=== PATIENT | male | born 1955 | race Caucasian/White ===

== ENCOUNTER 2017-06-21 07:29 | Emergency (ER) | payer OTHER ==
[2017-06-21] MEDS ORDERED: ONDANSETRON 4 MG/2 ML VIAL ONE (07:51)
[2017-06-21] MEDS ORDERED: KETOROLAC 30 MG/ML INJ ONE (07:51)
[2017-06-21] MEDS ORDERED: FENTANYL CITR 100 MCG/2 ML ONE (07:51)
[2017-06-21 08:11] LABS: Absolute Lymphocytes (CBC) 1.5 K/uL (0.7-4.9); Absolute Monocytes 0.7 K/uL (0.1-1.3); Absolute Neutrophil 6.4 K/uL (1.8-8.0); Basophils % 0.7 % (0-1.3); Eosinophils % 1.8 % (0-4.4); Lymphocytes % 16.7 % (15.3-44.8); MCH 28.4 pg (27.0-35.0); MCV 89.2 fL (80-100); MPV 8.9 fL (7.6-11.3); Monocytes % 7.5 % (3.3-12.3); RBC Red Blood Cell Count 4.15 M/uL (4.33-5.43)
[2017-06-21 08:13] LABS: Urine Bacteria <20 /HPF (NONE SEEN); Urine Culture Reflex Order NOT NEEDED
[2017-06-21 08:19] LABS: Albumin 2.9 g/dL (3.2-5.5); Bilirubin Total 0.5 mg/dL (0.3-1.2); Protein, Total 7.3 g/dL (6.0-8.3)
--- NOTE | 2017-06-21 08:45 | RAD REPORT ---
EXAM DESCRIPTION: CT - Chest Abd Pelvis Wo Con - 06/21/2017 8:23 am CLINICAL HISTORY: Chest and abdomen pain. COMPARISON: 05/05/2017, 04/19/2017, 04/15/[address] scans are performed using dose optimization technique as appropriate and may includ e automated exposure control or mA/KV adjustment according to patient size. 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 Multiple hepatic hypodensities are present compatible with benign cysts. The spleen, pancreas and adr enal glands are within normal limits. Multiple renal cysts are present compatible with polycystic kid cristina disease. No bowel obstruction, free air, free fluid or abscess. No pathologic lymphadenopathy in the abdomen o r pelvis. Aortic endograft is in place. The appendix is normal. Sigmoid diverticulosis coli is presen t without diverticulitis. No worrisome osseous finding. IMPRESSION: No acute abnormality is detected.
--- NOTE | 2017-06-21 08:47 | ER ---
Nurse's Notes [facility] Name: Stan Jimenes Age: 62 yrs Sex: Male : 1955 Arrival Date: 06/21/2017 Time: 07:30 Bed 5 Private MD: out of town, doctor Diagnosis: Fall due to bumping against object;Contusion of abdominal wall;Contusion of front wall of thorax;Contusion of left back wall of thorax;Unspecified kidney failure-poly cystic kidney disease Presentation: 06/21 07:40 Presenting complaint: Patient states: Pt reports while getting back into bed this morning, he slipped and fell, hitting his L flank on the night stand. small abrasion noted to L flank. is concerned because patient has had multiple kidney surgeries. Transition of care: patient was not received from another setting of care. Onset of symptoms was June 21, 2017. Initial Sepsis Screen: Does the patient meet any 2 criteria? No. Patient's initial sepsis screen is negative. Does the patient have a suspected source of infection? No. Patient's initial sepsis screen is negative. Care prior to arrival: None. 07:40 Method Of Arrival: Ambulatory ss 07:40 Acuity: CHAVA 3 ss Historical: - Allergies: 07:44 No Known Allergies; ss - PMHx: 07:44 Aneurysm; COPD; Diabetes - NIDDM; High Cholesterol; Hypertension; POLYCYSTIC KIDNEY ss DISEASE; - Immunization history:: Adult Immunizations. - Social history:: Smoking status: Patient/guardian denies using tobacco. Screenin:50 Abuse screen: Denies threats or abuse. Denies injuries from another. Nutritional sv screening: No deficits noted. Tuberculosis screening: No symptoms or risk factors identified. Fall Risk None identified. Assessment: 07:50 General: Appears uncomfortable, obese, well developed, Behavior is cooperative. Pain: sv Complains of pain in left low back and left mid back and posterior aspect of left lateral abdomen Pain does not radiate. Pain currently is 5 out of 10 on a pain scale. Pain began 1 hour ago. Is intermittent, Alleviated by rest. Neuro: Level of Consciousness is awake, alert, obeys commands, Oriented to person, place, time, situation, Moves all extremities. Gait is steady. Cardiovascular: Patient's skin is warm and dry. Respiratory: Respiratory effort is even, unlabored, Respiratory pattern is regular, symmetrical. Derm: Skin is pink, warm \T\ dry. Musculoskeletal: Range of motion: intact in all extremities. Injury Description: Abrasion sustained to left mid back is scabbed, was sustained 30-60 minutes ago. 08:26 Reassessment: Patient appears in no apparent distress at this time. Patient and/or sv family updated on plan of care and expected duration. Pain level reassessed. Patient is alert, oriented x 3, equal unlabored respirations, skin warm/dry/pink. 09:00 Reassessment: Rosalinda WOODRUFF at bedside teaching IS. 09:14 Reassessment: Patient appears in no apparent distress at this time. No changes from previously documented assessment. Patient and/or family updated on plan of care and expected duration. Pain level reassessed. Patient is alert, oriented x 3, equal unlabored respirations, skin warm/dry/pink. Vital Signs: 07:41 BP 177 / 72; Pulse 81; Resp 20; Pulse Ox 100% ; sv 07:43 Temp 97.8(TE); Weight 95.25 kg; Height 6 ft. 2 in. (187.96 cm); Pain 5/10; ss 07:45 BP 145 / 87; Pulse 61; Resp 18; Pulse Ox 92% on R/A; sv 08:47 BP 146 / 82; Pulse 62; Resp 18; Pulse Ox 97% ; sv 07:43 Body Mass Index 26.96 (95.25 kg, 187.96 cm) ss 07:45 Pt placed on O2 \T\ 2L per NC. O2 sat up to 95%. sv ED Course: 07:30 Patient arrived in ED. as 07:30 out of town, doctor is Private Physician. as 07:35 Jimmie Hloland MD is Attending Physician. mendez 07:35 Naima Manning, MONA is Primary Nurse. sv 07:42 Triage completed. ss 07:43 ED physician to see patient. sv 07:43 Arm band placed on right wrist. ss 07:50 Patient has correct armband on for positive identification. Bed in low position. Call sv light in reach. Side rails up X2. Adult w/ patient. Pulse ox on. NIBP on. Door closed. Warm blanket given. Head of bed elevated. 07:50 Initial lab(s) drawn, by ED staff, sent to lab. Inserted saline lock: 20 gauge in right sv antecubital area, using aseptic technique. Blood collected. IV inserted by Maria Esther [employer] student under the supervision of EQUIPMENT TECH. 08:16 CT completed. Patient moved to CT via stretcher. Patient moved back from CT. cw1 08:17 X-ray completed. Portable x-ray completed in exam room. Patient tolerated procedure kp1 well. 08:18 Chest Single View XRAY In Process Unspecified. EDMS 08:23 CT Chest Abdomen Pelvis W/O Contrast In Process Unspecified. EDMS 08:26 Patient moved back from radiology. sv 08:47 Awaiting radiology results. sv 09:12 INCENTIVE SPIROMETRY Sent. sv 09:14 No provider procedures requiring assistance completed. IV discontinued, intact, sv bleeding controlled, No redness/swelling at site. Pressure dressing applied. Administered Medications: 07:53 Drug: Zofran 4 mg Route: IVP; Site: right antecubital; sv 08:48 Follow up: Response: No adverse reaction sv 07:55 Drug: TORadol 30 mg Route: IVP; Site: right antecubital; sv 08:48 Follow up: Response: No adverse reaction sv 07:57 Drug: fentaNYL (PF) 50 mcg Route: IVP; Site: right antecubital; sv 08:48 Follow up: Response: No adverse reaction sv Outcome: 08:47 Discharge ordered by . mendez 09:14 Patient left the ED. sv 09:14 Discharged to home ambulatory, with family. sv 09:14 Condition: stable 09:14 Discharge instructions given to patient, Instructed on discharge instructions, follow up and referral plans. no drinking with medication, no driving heavy equipment, medication usage, IS teaching Demonstrated understanding of instructions, follow-up care, medications, Prescriptions given X 2. Signatures: Dispatcher [employer] EDMS Naima Manning RN RN sv Gay, Steven, RN RN sg Anderson, Corey, MD MD cha Martinez, Amelia as Smirch, Shelby, RN RN ss Woodley, Crystal cw1 Lizeth Markham kp1 Corrections: (The following items were deleted from the chart) 08:12 07:56 Inserted saline lock: 20 gauge in right antecubital area, using aseptic sv technique. Blood collected. IV inserted by Maria Esther [employer] student under the supervision of EQUIPMENT TECH august 08:12 07:56 Initial lab(s) drawn, by ED staff, sent to lab. sg sv
--- NOTE | 2017-06-21 08:48 | EDPHYS ---
Physician Documentation [facility] Name: Stan Jimenes Age: 62 yrs Sex: Male : 1955 Arrival Date: 06/21/2017 Time: 07:30 Bed 5 Private MD: out of town, doctor ED Physician Jimmie Holland HPI: 06/21 07:45 This 62 yrs old Male presents to ER via Ambulatory with complaints of Fall mendez Injury, Flank Pain. 07:45 Details of fall: The patient fell from an upright position, while walking. Onset: The mendez symptoms/episode began/occurred just prior to arrival. Associated injuries: The patient sustained injury to the chest, injury to the abdomen, contusion, tenderness. Severity of symptoms: At their worst the symptoms were moderate, in the emergency department the symptoms are unchanged. The patient has not experienced similar symptoms in the past. Historical: - Allergies: 07:44 No Known Allergies; ss - PMHx: 07:44 Aneurysm; COPD; Diabetes - NIDDM; High Cholesterol; Hypertension; POLYCYSTIC KIDNEY ss DISEASE; - Immunization history:: Adult Immunizations. - Social history:: Smoking status: Patient/guardian denies using tobacco. ROS: 07:46 Constitutional: Negative for fever, chills, and weight loss, Eyes: Negative for injury, mendez pain, redness, and discharge, ENT: Negative for injury, pain, and discharge, Neck: Negative for injury, pain, and swelling, Cardiovascular: Negative for chest pain, palpitations, and edema, Back: Negative for injury and pain, : Negative for injury, bleeding, discharge, and swelling, MS/Extremity: Negative for injury and deformity, Skin: Negative for injury, rash, and discoloration, Neuro: Negative for headache, weakness, numbness, tingling, and seizure, Psych: Negative for depression, anxiety, suicide ideation, homicidal ideation, and hallucinations, Allergy/Immunology: Negative for hives, rash, and allergies, Endocrine: Negative for neck swelling, polydipsia, polyuria, polyphagia, and marked weight changes, Hematologic/Lymphatic: Negative for swollen nodes, abnormal bleeding, and unusual bruising. 07:46 Respiratory: Positive for shortness of breath, at rest. 07:46 Abdomen/GI: Positive for abdominal pain, of the anterior aspect of left lateral abdomen, posterior aspect of left lateral abdomen and left upper quadrant. Exam: 07:46 Constitutional: This is a well developed, well nourished patient who is awake, alert, mendez and in no acute distress. Head/Face: Normocephalic, atraumatic. Eyes: Pupils equal round and reactive to light, extra-ocular motions intact. Lids and lashes normal. Conjunctiva and sclera are non-icteric and not injected. Cornea within normal limits. Periorbital areas with no swelling, redness, or edema. ENT: Nares patent. No nasal discharge, no septal abnormalities noted. Tympanic membranes are normal and external auditory canals are clear. Oropharynx with no redness, swelling, or masses, exudates, or evidence of obstruction, uvula midline. Mucous membranes moist. Neck: Trachea midline, no thyromegaly or masses palpated, and no cervical lymphadenopathy. Supple, full range of motion without nuchal rigidity, or vertebral point tenderness. No Meningismus. Chest/axilla: Normal chest wall appearance and motion. Nontender with no deformity. No lesions are appreciated. Cardiovascular: Regular rate and rhythm with a normal S1 and S2. No gallops, murmurs, or rubs. Normal PMI, no JVD. No pulse deficits. Respiratory: Lungs have equal breath sounds bilaterally, clear to auscultation and percussion. No rales, rhonchi or wheezes noted. No increased work of breathing, no retractions or nasal flaring. Back: No spinal tenderness. No costovertebral tenderness. Full range of motion. Male : Normal genitalia with no discharge or lesions. Skin: Warm, dry with normal turgor. Normal color with no rashes, no lesions, and no evidence of cellulitis. MS/ Extremity: Pulses equal, no cyanosis. Neurovascular intact. Full, normal range of motion. Neuro: Awake and alert, GCS 15, oriented to person, place, time, and situation. Cranial nerves II-XII grossly intact. Motor strength 5/5 in all extremities. Sensory grossly intact. Cerebellar exam normal. Normal gait. Psych: Awake, alert, with orientation to person, place and time. Behavior, mood, and affect are within normal limits. 07:46 Abdomen/GI: Inspection: distension, Bowel sounds: normal, Palpation: mild abdominal tenderness, moderate abdominal tenderness, in the anterior aspect of left lateral abdomen, posterior aspect of left lateral abdomen and left upper quadrant, Liver: no appreciated palpable abnormalities, Hernia: not appreciated. Vital Signs: 07:41 BP 177 / 72; Pulse 81; Resp 20; Pulse Ox 100% ; sv 07:43 Temp 97.8(TE); Weight 95.25 kg; Height 6 ft. 2 in. (187.96 cm); Pain 5/10; ss 07:45 BP 145 / 87; Pulse 61; Resp 18; Pulse Ox 92% on R/A; sv 08:47 BP 146 / 82; Pulse 62; Resp 18; Pulse Ox 97% ; sv 07:43 Body Mass Index 26.96 (95.25 kg, 187.96 cm) ss 07:45 Pt placed on O2 \T\ 2L per NC. O2 sat up to 95%. sv MDM: 07:35 Patient medically screened. [facility] 07:47 Data reviewed: vital signs, nurses notes, lab test result(s), radiologic studies, CT mendez scan, plain films. 06/21 07:44 Order name: CBC with Diff; Complete Time: 08:13 [facility] 06/21 07:44 Order name: Comprehensive Metabolic Panel; Complete Time: 08:46 [facility] 06/21 07:44 Order name: Lipase; Complete Time: 08:46 [facility] 06/21 07:44 Order name: Chest Single View XRAY [facility] 06/21 07:44 Order name: Urine Microscopic Only; Complete Time: 08:13 [facility] 06/21 07:44 Order name: Urine Dipstick-Ancillary (obtain specimen); Complete Time: 07:57 [facility] 06/21 08:01 Order name: CT Chest Abdomen Pelvis W/O Contrast; Complete Time: 08:46 [facility] 06/21 08:02 Order name: INCENTIVE SPIROMETRY [facility] Administered Medications: 07:53 Drug: Zofran 4 mg Route: IVP; Site: right antecubital; sv 08:48 Follow up: Response: No adverse reaction sv 07:55 Drug: TORadol 30 mg Route: IVP; Site: right antecubital; sv 08:48 Follow up: Response: No adverse reaction sv 07:57 Drug: fentaNYL (PF) 50 mcg Route: IVP; Site: right antecubital; sv 08:48 Follow up: Response: No adverse reaction sv Disposition: 06/21/17 08:47 Discharged to Home. Impression: Fall due to bumping against object, Contusion of abdominal wall, Contusion of front wall of thorax, Contusion of left back wall of thorax, Unspecified kidney failure - poly cystic kidney disease. - Condition is Stable. - Discharge Instructions: Blunt Abdominal Trauma, Contusion, Chest Wall Pain, Chest Contusion, Chest Wall Pain, [id number], Contusion, [id number], Chest Contusion, [id number]. - Prescriptions for Tylenol- Codeine #3 300-30 mg Oral Tablet - take 2 tablet by ORAL route every 6 hours As needed; 30 tablet. Valium 2 mg Oral Tablet - take 1 tablet by ORAL route every 8 hours As needed; 20 tablet. - Medication Reconciliation Form, Thank You Letter, Antibiotic Education, Prescription Opioid Use form. - Follow up: Private Physician; When: 2 - 3 days; Reason: Recheck today's complaints, Continuance of care, Re-evaluation by your physician. - Problem is new. - Symptoms have improved. Signatures: Dispatcher [employer] aNima Montana RN RN sv Anderson, Corey, MD MD cha Smirch, Shelby, RN RN ss Corrections: (The following items were deleted from the chart) 08:04 07:45 Chest Abdomen Pelvis W Con+CT.RAD.BRZ ordered. EDMS EDMS
[2017-06-21 09:19] VITALS: TEMP 97.8
[2017-06-21 09:22] VITALS: BP 146/82; O2SAT 97
--- NOTE | 2017-06-21 11:00 | RAD REPORT ---
EXAM DESCRIPTION: RAD - Chest Single View - 06/21/2017 8:26 am CLINICAL HISTORY: Dyspnea, shortness of breath COMPARISON: 05/05/2017 FINDINGS: Portable technique limits examination quality. The lungs are grossly clear. The heart is normal in size. No displaced fractures. IMPRESSION: No acute intrathoracic process suspected.
[2017-06-22] MEDS ORDERED: MIDAZOLAM HCL 2 MG/2 ML INJ ONE (08:47)
[2017-06-22] MEDS ORDERED: FENTANYL CITR 100 MCG/2 ML ONE (08:47)
== END 2017-06-21 09:14 | disposition home or self-care (01) ==
LOC: ER 07:29
DX: S20.219A Contusion of unspecified front wall of thorax, initial encounter (principal); S20.222A Contusion of left back wall of thorax, initial encounter; N19 Unspecified kidney failure; Q61.3 Polycystic kidney, unspecified; I10 Essential (primary) hypertension; W18.00XA Striking against unspecified object with subsequent fall, initial encounter; Y93.01 Activity, walking, marching and hiking; Y92.9 Unspecified place or not applicable
CPT/HCPCS: 36415; 71045; 71250; 74176; 80053; 81015; 83690; 85025; 96374; 96375; 99284; J2250; J2405; J3010

== ENCOUNTER 2018-02-09 13:48 | Emergency (ER) | payer OTHER ==
--- OUTSIDE RECORDS SUMMARY | 2018-02-09 13:51 | XMS REPORT ---
:1955 [facility] Address [address] [place] [address] Dr. Trevino [address] [place] [id number] Care Team Providers Name Role Phone Unavailable Unavailable Unavailable Problems This patient has no known problems. Allergies, Adverse Reactions, Alerts This patient has no known allergies or adverse reactions. Medications This patient has no known medications.
[2018-02-09] MEDS ORDERED: HYDROCODONE/APAP 7.5/325 MG TAB ONE (15:23)
--- NOTE | 2018-02-09 15:26 | RAD REPORT ---
EXAM DESCRIPTION: CT - Thorax Wo Jason - 02/09/2018 3:05 pm CLINICAL HISTORY: Trip and fall, left-sided chest pain, shortness of breath COMPARISON: CT imaging May 2017 TECHNIQUE: Axial 5 mm thick images of the chest were obtained without IV contrast. All CT scans are performed using dose optimization technique as appropriate and may include automated exposure control or mA/KV adjustment according to patient size. FINDINGS: No pulmonary contusion, pneumothorax or acute lung parenchymal process. There is a trace a mount of fluid in the posterior pleural space. Patient has incomplete fractures of the anterior left seventh and eighth ribs. The more inferior aspects of the ribcage are not imaged. No abnormal mediastinal or hilar masses or lymphadenopathy seen. No gross aortic or pulmonary artery finding suspected. No pericardial thickening or effusion. Clavicle and left shoulder joint are not w ell imaged. No sternum fracture. The 13 millimeter hamartoma posterior lower right lung field has not changed. No chest wall mass or abnormal axillary lymphadenopathy. IMPRESSION: Incomplete fractures of the anterior left seventh and eighth ribs. Patient has a minimal amount of pleural fluid on the left. There is no pneumothorax or pulmonary cont usion.
[2018-02-09 15:36] LABS: Absolute Lymphocytes (CBC) 1.8 K/uL (0.7-4.9); Absolute Monocytes 0.8 K/uL (0.1-1.3); Basophils % 0.8 % (0-1.3); Eosinophils % 2.9 % (0-4.4); Hematocrit 39.3 % (39.6-49.0); Lymphocytes % 20.1 % (15.3-44.8); MCH 29.8 pg (27.0-35.0); MCV 89.7 fL (80-100); MPV 8.4 fL (7.6-11.3); Monocytes % 8.5 % (3.3-12.3); RBC Red Blood Cell Count 4.38 M/uL (4.33-5.43)
[2018-02-09 16:05] LABS: BUN Blood Urea Nitrogen 33 mg/dL (7-18); Bicarbonate 26 mmol/L (21-32); Glucose Level 90 mg/dL (74-106); NT PRO-BNP 828 pg/mL (<125); Potassium 4.2 mmol/L (3.5-5.1); Sodium Level 142 mmol/L (136-145); Troponin (Emerg Dept Use Only) < 0.02 ng/mL (0.0-0.045)
--- NOTE | 2018-02-09 16:33 | EDPHYS ---
Physician Documentation [facility] Name: Stan Jimenes Age: 62 yrs Sex: Male : 1955 Arrival Date: 02/09/2018 Time: 13:52 Bed 26 Private MD: out of town, doctor ED Physician Vernon Jeffery HPI: 02/09 16:25 This 62 yrs old Male presents to ER via Ambulatory with complaints of Chest gs Pain, Shortness Of Breath, High Blood Pressure, Fall Injury. 16:26 The patient or guardian reports chest pain that is located primarily in the anterior gs chest wall, left. Onset: 4 day(s) ago, fell on chest upright position. Associated signs and symptoms: Pertinent positives: shortness of breath. The chest pain is described as sharp. Duration: The patient or guardian reports multiple episodes, that are intermittent, that wax and wane. Modifying factors: the symptoms are aggravated by deep breath, twisting torso. Severity of pain: At its worst the pain was moderate in the emergency department the pain is unchanged. The patient has not experienced similar symptoms in the past. Historical: - Allergies: 14:13 No Known Allergies; ph - Home Meds: 14:13 calcitriol 0.25 mcg Oral cap 1 cap [Active]; allopurinol 100 mg oral tab once daily ph [Active]; aspirin 81 mg Oral TbEC 1 tab once daily [Active]; magnesium oxide 400 mg Oral tab 400 mg daily [Active]; esomeprazole magnesium 40 mg Oral cpDR 1 cap once daily [Active]; Silenor 6 mg oral tab 1 tab once daily [Active]; metoprolol tartrate 25 mg Oral tab 1 tab 2 times per day [Active]; carvedilol 6.25 mg oral tab 1 tab 2 times per day [Active]; amlodipine 10 mg tab 1 tab once daily [Active]; acetaminophen-codeine 300-30 mg Oral tab 2 tabs every 6 hours [Active]; ranitidine HCl 150 mg Oral tab 1 tab once daily [Active]; tramadol 50 mg Oral tab 1 tab every 8 hours [Active]; tamsulosin 0.4 mg oral cp24 1 cap once daily [Active]; - PMHx: 14:13 Aneurysm; COPD; Diabetes - NIDDM; High Cholesterol; Hypertension; POLYCYSTIC KIDNEY ph DISEASE; - PSHx: 14:13 missing rib on L; AAA repair; ph - Immunization history:: Adult Immunizations unknown. - Social history:: Smoking status: Patient/guardian denies using tobacco, the patient reports quitting approximately 10 years ago. - Ebola Screening: : No symptoms or risks identified at this time. ROS: 16:26 All other systems are negative. gs Exam: 16:26 Head/Face: Normocephalic, atraumatic. Eyes: Pupils equal round and reactive to light, gs extra-ocular motions intact. Lids and lashes normal. Conjunctiva and sclera are non-icteric and not injected. Cornea within normal limits. Periorbital areas with no swelling, redness, or edema. ENT: Nares patent. No nasal discharge, no septal abnormalities noted. Tympanic membranes are normal and external auditory canals are clear. Oropharynx with no redness, swelling, or masses, exudates, or evidence of obstruction, uvula midline. Mucous membranes moist. Neck: Trachea midline, no thyromegaly or masses palpated, and no cervical lymphadenopathy. Supple, full range of motion without nuchal rigidity, or vertebral point tenderness. No Meningismus. Respiratory: Lungs have equal breath sounds bilaterally, clear to auscultation and percussion. No rales, rhonchi or wheezes noted. No increased work of breathing, no retractions or nasal flaring. Abdomen/GI: Soft, non-tender, with normal bowel sounds. No distension or tympany. No guarding or rebound. No evidence of tenderness throughout. Back: No spinal tenderness. No costovertebral tenderness. Full range of motion. Skin: Warm, dry with normal turgor. Normal color with no rashes, no lesions, and no evidence of cellulitis. MS/ Extremity: Pulses equal, no cyanosis. Neurovascular intact. Full, normal range of motion. Neuro: Awake and alert, GCS 15, oriented to person, place, time, and situation. Cranial nerves II-XII grossly intact. Motor strength 5/5 in all extremities. Sensory grossly intact. Cerebellar exam normal. Normal gait. 16:26 Constitutional: The patient appears alert, awake. 16:26 Chest/axilla: Palpation: tenderness, that is moderate, of the left lateral anterior chest and left lateral posterior chest. 16:26 Cardiovascular: Rate: normal, Rhythm: regular, Pulses: no pulse deficits are appreciated. 16:26 ECG was reviewed by the Attending Physician. Vital Signs: 14:05 BP 145 / 84; Pulse 64; Resp 22; Temp 97.8; Pulse Ox 100% on R/A; Weight 122.47 kg; ph Height 6 ft. 2 in. (187.96 cm); Pain 5/10; 15:38 BP 151 / 90; Pulse 60; Resp 17; Pulse Ox 98% on R/A; kr2 16:45 BP 136 / 74; Pulse 66; Resp 17; Pulse Ox 99% on R/A; kr2 14:05 Body Mass Index 34.67 (122.47 kg, 187.96 cm) ph MDM: 14:32 Patient medically screened. 16:26 Differential diagnosis: pleurisy, pneumothorax, rib fx. Data reviewed: vital signs, gs nurses notes. Counseling: I had a detailed discussion with the patient and/or guardian regarding: the historical points, exam findings, and any diagnostic results supporting the discharge/admit diagnosis, lab results, radiology results, the need for outpatient follow up. 02/09 14:37 Order name: Basic Metabolic Panel; Complete Time: 16:25 02/09 14:37 Order name: CBC with Diff; Complete Time: 15:44 02/09 14:37 Order name: NT PRO-BNP; Complete Time: 16:25 02/09 14:37 Order name: Troponin (emerg Dept Use Only); Complete Time: 16:25 02/09 14:37 Order name: CT Chest Wo Con; Complete Time: 15:44 02/09 14:37 Order name: EKG; Complete Time: 14:38 02/09 14:37 Order name: Cardiac monitoring; Complete Time: 14:41 02/09 14:37 Order name: EKG - Nurse/Tech; Complete Time: 14:41 02/09 14:37 Order name: IV Saline Lock; Complete Time: 14:41 02/09 14:37 Order name: Labs collected and sent; Complete Time: 14:41 02/09 14:37 Order name: O2 Per Protocol; Complete Time: 14:41 02/09 14:37 Order name: O2 Sat Monitoring; Complete Time: 14:41 gs EC:26 Rate is 60 beats/min. Rhythm is regular. [place] interval is prolonged. QRS interval is gs normal. QT interval is normal. T waves are Normal. No ST changes noted. Clinical impression: Abnormal EKG without significant change. Interpreted by me. Administered Medications: 15:18 Drug: [place] (7.5 mg-325 mg) 1 tabs Route: PO; kr2 16:30 Follow up: Response: No adverse reaction; Pain is decreased kr2 Disposition: 02/09/18 16:33 Discharged to Home. Impression: Multiple fractures of ribs, left side. - Condition is Stable. - Discharge Instructions: Rib Fracture, Incentive Spirometer. - Prescriptions for Tylenol- Codeine #4 300-60 mg Oral Tablet - take 1 tablet by ORAL route every 8 hours As needed; 15 tablet. - Medication Reconciliation Form, Thank You Letter, Antibiotic Education, Prescription Opioid Use form. - Follow up: Emergency Department; When: 2 - 3 days; Reason: Re-evaluation by your physician. Signatures: Dispatcher [employer] EDJaquelin Quintanilla RN RN Vernon Jeffery MD MD India Hagen RN RN kr2 Corrections: (The following items were deleted from the chart) 16:48 16:33 02/09/2018 16:33 Discharged to Home. Impression: Multiple fractures of ribs, left kr2 side. Condition is Stable. Forms are Medication Reconciliation Form, Thank You Letter, Antibiotic Education, Prescription Opioid Use. Follow up: Emergency Department; When: 2 - 3 days; Reason: Re-evaluation by your physician.
--- NOTE | 2018-02-09 16:33 | ER ---
Nurse's Notes [facility] Name: Stan Jimenes Age: 62 yrs Sex: Male : 1955 Arrival Date: 02/09/2018 Time: 13:52 Bed 26 Private MD: out of town, doctor Diagnosis: Multiple fractures of ribs, left side Presentation: 02/09 14:02 Presenting complaint: Child states: " We were visiting someone at the hospital in [facility] and he tripped and fell and landed on his chest. They did xrays and said that nothing is broken but he's been having a lot of pain." Pt reports pain in L side of chest that radiates around rib area, also reports pain w/ respiration, SOB, high BP and productive cough w/ brown mucus, hx of COPD, AAA repair and missing a rib on L side. Injury occurred 02/05. Transition of care: patient was not received from another setting of care. Onset of symptoms was February 09, 2018. Risk Assessment: Do you want to hurt yourself or someone else? Patient reports no desire to harm self or others. Initial Sepsis Screen: Does the patient meet any 2 criteria? No. Patient's initial sepsis screen is negative. Does the patient have a suspected source of infection? No. Patient's initial sepsis screen is negative. Care prior to arrival: None. 14:02 Method Of Arrival: Ambulatory 14:02 Acuity: CHAVA 3 ph Historical: - Allergies: 14:13 No Known Allergies; ph - Home Meds: 14:13 calcitriol 0.25 mcg Oral cap 1 cap [Active]; allopurinol 100 mg oral tab once daily ph [Active]; aspirin 81 mg Oral TbEC 1 tab once daily [Active]; magnesium oxide 400 mg Oral tab 400 mg daily [Active]; esomeprazole magnesium 40 mg Oral cpDR 1 cap once daily [Active]; Silenor 6 mg oral tab 1 tab once daily [Active]; metoprolol tartrate 25 mg Oral tab 1 tab 2 times per day [Active]; carvedilol 6.25 mg oral tab 1 tab 2 times per day [Active]; amlodipine 10 mg tab 1 tab once daily [Active]; acetaminophen-codeine 300-30 mg Oral tab 2 tabs every 6 hours [Active]; ranitidine HCl 150 mg Oral tab 1 tab once daily [Active]; tramadol 50 mg Oral tab 1 tab every 8 hours [Active]; tamsulosin 0.4 mg oral cp24 1 cap once daily [Active]; - PMHx: 14:13 Aneurysm; COPD; Diabetes - NIDDM; High Cholesterol; Hypertension; POLYCYSTIC KIDNEY ph DISEASE; - PSHx: 14:13 missing rib on L; AAA repair; ph - Immunization history:: Adult Immunizations unknown. - Social history:: Smoking status: Patient/guardian denies using tobacco, the patient reports quitting approximately 10 years ago. - Ebola Screening: : No symptoms or risks identified at this time. Screenin:00 Abuse screen: Denies threats or abuse. Denies injuries from another. Nutritional kr2 screening: No deficits noted. Tuberculosis screening: No symptoms or risk factors identified. Fall Risk Fall in past 12 months (25 points). Assessment: 14:11 General: Appears in no apparent distress. comfortable, well groomed, well developed, kr2 well nourished, Behavior is calm, cooperative, appropriate for age. Pain: Complains of pain in chest Pain radiates to anterior aspect of left lateral abdomen and anterior aspect of right lateral abdomen Pain currently is 7 out of 10 on a pain scale. Quality of pain is described as sharp, tender, Pain began gradually, Aggravated by deep breathing and coughing. Neuro: Level of Consciousness is awake, alert, Oriented to person, place, time, situation. Cardiovascular: Capillary refill < 3 seconds in bilateral fingers. Respiratory: Airway is patent Respiratory effort is even, unlabored, Respiratory pattern is regular, symmetrical. GI: Abdomen is flat, round non-distended, Patient currently denies nausea, vomiting. EENT: Nares are clear bilaterally Oral mucosa is moist. Derm: Skin is intact, is healthy with good turgor, Skin is pink, warm \\T\\ dry. Musculoskeletal: Circulation, motion, and sensation intact. 15:37 Reassessment: Patient appears in no apparent distress at this time. Patient and/or kr2 family updated on plan of care and expected duration. Pain level reassessed. Patient is alert, oriented x 3, equal unlabored respirations, skin warm/dry/pink. 16:45 Reassessment: Patient appears in no apparent distress at this time. Patient and/or kr2 family updated on plan of care and expected duration. Pain level reassessed. Patient is alert, oriented x 3, equal unlabored respirations, skin warm/dry/pink. Patient states feeling better. Vital Signs: 14:05 BP 145 / 84; Pulse 64; Resp 22; Temp 97.8; Pulse Ox 100% on R/A; Weight 122.47 kg; ph Height 6 ft. 2 in. (187.96 cm); Pain 5/10; 15:38 BP 151 / 90; Pulse 60; Resp 17; Pulse Ox 98% on R/A; kr2 16:45 BP 136 / 74; Pulse 66; Resp 17; Pulse Ox 99% on R/A; kr2 14:05 Body Mass Index 34.67 (122.47 kg, 187.96 cm) ph ED Course: 13:52 Patient arrived in ED. mr 13:53 out of town, doctor is Private Physician. mr 14:00 Patient maintains SpO2 saturation greater than 95% on room air. kr2 14:00 Patient has correct armband on for positive identification. Bed in low position. Call kr2 light in reach. Side rails up X2. Adult w/ patient. nurse monitoring on. Pulse ox on. NIBP on. Door closed. Warm blanket given. Head of bed elevated. 14:05 Triage completed. ph 14:06 India Hagen, MONA is Primary Nurse. kr2 14:10 EKG done, by medical lab technologist. reviewed by Basil Ya MD. 3 14:14 Arm band placed on Patient placed in an exam room, on a stretcher, in view of staff ph members, on shelter monitor, on pulse oximetry. 14:22 Vernon Jeffery MD is Attending Physician. gs 14:30 Inserted saline lock: 22 gauge in right forearm, using aseptic technique. kr2 15:05 CT Chest Wo Con In Process Unspecified. EDMS 16:46 No provider procedures requiring assistance completed. IV discontinued, intact, kr2 bleeding controlled, No redness/swelling at site. Pressure dressing applied. Administered Medications: 15:18 Drug: [place] (7.5 mg-325 mg) 1 tabs Route: PO; kr2 16:30 Follow up: Response: No adverse reaction; Pain is decreased kr2 Outcome: 16:33 Discharge ordered by . gs 16:47 Discharged to home ambulatory, with family. kr2 16:47 Condition: good 16:47 Discharge instructions given to patient, family, Instructed on discharge instructions, follow up and referral plans. medication usage, Incentive Spirometer use Demonstrated understanding of instructions, follow-up care, medications, Incentive spirometer Prescriptions given X 1. 16:48 Patient left the ED. kr2 Signatures: Dispatcher [employer] EDKY Mazin Megan QiuJaquelin, RN RN ph Latia, MD JOSSELYN Junior India Hagen RN RN kr2 Stacie Horowitz 3
[2018-02-09 17:17] VITALS: TEMP 97.8
[2018-02-09 17:20] VITALS: BP 136/74; O2SAT 99
--- NOTE | 2018-02-09 17:45 | EKG ---
Test Date: 2018-02-09 Test Time: 14:02:12 Blade Groover: JACQUELINE MEASUREMENT RESULTS: Intervals: Rate: 60 OK: QRSD: 90 QT: 422 QTc: 422 [place]: P: OK: QRS: -3 T: 24 INTERPRETIVE STATEMENTS: Sinus rhythm Normal ECG Compared to ECG 05/05/2017 18:03:55 no significant change from previous ECG Electronically Signed On 02-09-18 17:44:54 TANDEM OPERATOR by Shree Parks
== END 2018-02-09 16:48 | disposition home or self-care (01) ==
LOC: ER 13:48
DX: S22.42XA Multiple fractures of ribs, left side, initial encounter for closed fracture (principal); W19.XXXA Unspecified fall, initial encounter; Y93.9 Activity, unspecified; Y92.9 Unspecified place or not applicable; Z79.82 Long term (current) use of aspirin; I10 Essential (primary) hypertension; J44.9 Chronic obstructive pulmonary disease, unspecified; E11.9 Type 2 diabetes mellitus without complications; E78.00 Pure hypercholesterolemia, unspecified
CPT/HCPCS: 36415; 71250; 80048; 83880; 84484; 85025; 93005; 99285

== ENCOUNTER 2018-04-09 18:42 | Emergency (ER) | payer OTHER ==
--- OUTSIDE RECORDS SUMMARY | 2018-04-09 18:45 | XMS REPORT | Continuity of Care Document ---
:1955 Author Organization Interface Problems Problem Status Onset Classification Date Comments Source Date Reported KIDNEY/DO NOT USE Active [facility] F/C [address] [place] [address] NEW EVALUATION Active [address] Z87.891 - PERSONAL Active [facility]ID HISTORY OF 018 [place] NICOTINE D Discharge 11/06/2016 [facility] Diagnosis: 017 Hypomagnesemia Discharge 11/06/2016 [facility] Diagnosis: 017 Generalized weakness Discharge 11/06/2016 [facility] Diagnosis: 017 Hypophosphatemia WEAKNESS Active [facility] 017 [place] Discharge 09/13/2015 [facility] Diagnosis: Sore 016 throat Discharge 09/13/2015 [facility] Diagnosis: Foreign 016 body in soft tissue (Throat) THROAT PAIN Active [facility] 016 [place] Discharge 06/23/2015 [facility] Diagnosis: 016 Weakness Discharge 06/23/2015 [facility] Diagnosis: Chronic 016 back pain Discharge 06/23/2015 [facility] Diagnosis: History 016 of AAA repair Discharge 06/23/2015 [facility] Diagnosis: 016 Articular gout CHEST PAIN Active [facility] 016 [place] 491.20 - OBST CHR [facility] [place] Aneurysm of Resolved Problem 11/06/2016 [facility] abdominal aorta Chronic Active Problem 11/06/2016 Data [facility] obstructive lung migrated disease<sup>1</sup from GE > Centricity on 07/29/14. COPD Resolved Problem 11/06/2016 [facility] [place], [facility] Essential Active Problem 11/06/2016 Data [facility] hypertension<sup>2 migrated </sup> from GE Centricity on 07/29/14. Gastroesophageal Active Problem 11/06/2016 Data [facility] reflux migrated disease<sup>3</sup from GE > Centricity on 07/29/14. Gout<sup>4</sup> Active Problem 11/06/2016 Data [facility] migrated from GE Centricity on 07/29/14. Hypercholesterolem Active Problem 11/06/2016 Data [facility] ia<sup>5</sup> migrated from GE Centricity on 07/29/14. Hyperlipidemia Resolved Problem 11/06/2016 [facility] Hypertension Resolved Problem 11/06/2016 [facility] [place], [facility] Hypogonadism<sup>6 Active Problem 11/06/2016 Data [facility] </sup> migrated from GE Centricity on 07/29/14. Final: Weakness 06/23/2015 [facility] Final: Abdominal 06/23/2015 [facility] aortic aneurysm, without rupture Final: Idiopathic 06/23/2015 [facility] gout, unspecified site Final: 06/23/2015 [facility] Hypertensive chronic kidney disease with stage 1 through stage 4 chronic kidney disease, or unspecified chronic kidney disease Final: Chronic 06/23/2015 [facility] kidney disease, unspecified Medications Medication Details Route Status Patient Ordering Order Source Instructions Provider Date potassium Route: PO, Inactive phosphate-sodi Drug Form: [address] [place] [address] um phosphate PDR/REC, 250 mg-45 Dosing Weight mg-298 mg oral 118.182, kg, tablet ONCE, Start date: 11/03/16 15:02:00 CDT, Stop date: 11/03/16 15:02:00 CDTNotes: (Same as: Phos-NaK) Each 1.5 gm pkt has 250mg phosphorous. Mix w/2.5oz water and stir. potassium Route: PO, Inactive phosphate 155 Drug Form: [address] [place] [address] MG / Sodium TAB, Dosing Phosphate, Weight Dibasic 852 MG 118.182, kg, / Sodium ONCE, Start Phosphate, date: Monobasic 130 11/03/16 MG Oral Tablet 14:54:00 CDT, [K-Phos Stop date: Neutral] 11/03/16 14:54:00 CDTNotes: (Same as: K-Phos Neutral, Phospha 250 Neutral) Magnesium 2 gm, 50 mL, Inactive Sulfate Route: IVPB, Angela [place] Drug form: INJ, ONCE, Dosing Weight 118.182, kg, Start date: 11/03/16 14:52:00 CDT, Duration: 2 hr, Stop date: 11/03/16 14:52:00 CDTNotes: WASTE: F/P - Sink; E - Municipal Trash Bin GI cocktail 30 mL, Route: Inactive PO, Drug 017 [place] Form: SUSP, Dosing Weight 118.182, kg, ONCE, STAT, Start date: 11/03/16 10:34:00 CDT, Stop date: 11/03/16 10:34:00 CDTNotes: G.I. Cocktail=anta [place] with simethicone 22.5 mL - lidocaine viscous 7.5 mL Sodium 1,000 mL, Inactive Chloride 0.9% 2,000 ml/hr, 017 [place] IV (Sodium Infuse Over: Chloride 0.9% 30 minutes, (Bolus) IV) Route: IV, 1,000, Drug form: INJ, ONCE, Priority: STAT, Dosing Weight 118.182 kg, Start date: 11/03/16 10:34:00 CDT, Duration: 1 doses or times, Stop date: 11/03/16 10:34:00 CDT Saline Flush 10 mL, Route: Inactive 0.9% IVP, Drug 017 [place] Form: INJ, Dosing Weight 118.182, kg, ONCE, PRN Line Flush, Start date: 11/03/16 10:34:00 CDTNotes: (Same as: BD Posiflush) clindamycin 300 mg=1 cap, Active MH 300 mg oral PO, TID, X 10 016 [place] capsule day, # 30 cap, 0 Refill(s) GI cocktail 30 mL, Route: Inactive PO, Drug 016 [place] Form: SUSP, Dosing Weight 127.273, kg, ONCE, STAT, Start date: 09/10/15 16:05:00 CDT, Stop date: 09/10/15 16:05:00 CDTNotes: G.I. Cocktail=[place] with simethicone 22.5 mL - lidocaine viscous 7.5 mL {21 See Active (Methylprednis Instructions, 016 [place] olone 4 MG PO, Take by Oral Tablet mouth as [Medrol]) } directed on Pack [Medrol label., X 6 Dosepak] day, # 1 Pack, 0 Refill(s) Sodium 1,000 mL, Inactive Chloride 0.154 1,000 ml/hr, 016 [place] MEQ/ML Infuse Over: Injectable 1 hr, Route: Solution IV, 1,000, Drug form: INJ, ONCE, Priority: STAT, Dosing Weight 118.182 kg, Start date: 06/20/15 12:27:00 CDT, Duration: 1 doses or times, Stop date: 06/20/15 12:27:00 CDT Zofran 4 mg, 2 mL, Inactive Route: IVP, Jonathan [place] Drug form: INJ, ONCE, Dosing Weight 118.182, kg, Priority: STAT, Start date: 06/20/15 11:01:00 CDT, Stop date: 06/20/15 11:01:00 CDTNotes: (Same as: Zofran) MEDICATION WASTE Product Size: 4 mg Product Wasted: ___ mg Morphine 4 mg, 2 mL, Inactive Route: IVP, Jonathan Xavier Drug form: INJ, ONCE, Dosing Weight 118.182, kg, Priority: STAT, Start date: 06/20/15 11:00:00 CDT, Stop date: 06/20/15 11:00:00 CDTNotes: (Same as:MORPhine Sulfate) Saline Flush 10 mL, Route: Inactive 0.9% IVP, Drug Jonathan Xavier Form: INJ, kg, PRN, PRN Line Flush, Start date: 06/20/15 10:18:00 CDT, Duration: 30 day, Stop date: 07/20/15 10:17:00 CDTNotes: (Same as: BD Posiflush) Allergies, Adverse Reactions, Alerts Substance Category Reaction Severity Reaction Status Date Comments Source type Reported Immunizations Immunization Date Given Site Status Last Updated Comments Source Results Order Name Results Value Reference Date Interpretation Comments Source Range URINE AND UA 0.2 EU/dL 0.1 - 1.0 11/03 [facility] Urobilinogen /2017 [place] URINE AND UA Nitrite Negative Negative 11/03 [place] (11/03/16 11:40 AM) URINE AND UA Leuk Est Negative Negative 11/03 [place] (11/03/16 11:40 AM) URINE AND UA pH 5.5 5.0 - 8.0 11/03 [place] URINE AND UA Protein 100 mg/dL Negative 11/03 [facility] mg/dL [place] URINE AND UA Glucose Negative Negative 11/03 [place] (11/03/16 11:40 AM) URINE AND UA Blood Moderate Negative 11/03 [place] *ABN* (11/03/16 11:40 AM) URINE AND UA Ketones Negative Negative 11/03 [place] *NA* (11/03/16 11:40 AM) URINE AND UA Bili Negative Negative 11/03 [place] *NA* (11/03/16 11:40 AM) URINE AND UA Color Yellow Yellow 11/03 [place] *NA* (11/03/16 11:40 AM) URINE AND UA Spec Grav 1.020 <=1.030 11/03 [place] URINE AND UA Turbidity Clear Clear 11/03 [place] (11/03/16 11:40 AM) URINE AND UA Sq Epi Rare /LPF Few /LPF 11/03 [place] URINE AND UA Bacteria Occasional None Seen 11/03 [facility] /HPF /HPF [place] URINE AND UA WBC 0-2 /HPF None Seen 11/03 STO[facility] /HPF [place] URINE AND UA RBC 0-2 /HPF 0 - 2 11/03 [place] URINE AND UA Hyal Cast 0-2 0 - 2 11/03 [place] (11/03/16 11:40 AM) CARDIAC Troponin-I null 0.00 - 11/03 ENZYMES 0. [place] CHEM PANEL Magnesium 1.5 mg/dL 1.8 - 2.4 11/03 Lvl /2016 [place] CHEM PANEL Phosphorus 2.0 mg/dL 2.5 - 4.5 11/03 [place] CHEM PANEL eGFR 23 11/03 Result Comment: The eGFR is calculated using the CKD-EPI formula. In most young, healthy individuals the eGFR will be >90 mL/ min/1.73m2. The eGFR declines with age. An eGFR of 60-89 may be normal in mL/min/1.7 some populations, particularly the elderly, for whom the CKD-EPI formula has not been extensively validated. Use of the eGFR is not recommended in the following populations: [place] [address] Individuals with unstable creatinine concentrations, including patients and those with serious co-morbid conditions. Patients with extremes in muscle mass or diet. The data above are obtained from the National Kidney Disease Education Program (NKDEP) which additionally recommends that when the eGFR is used in patients with extremes of body mass index for purposes of drug dosing, the eGFR should be multiplied by the estimated BMI. CHEM PANEL ASPARTATE 11 unit/L 0 - 37 11/03 [place] CHEM PANEL Bili Total 0.5 mg/dL 0.2 - 1.3 11/03 [place] CHEM PANEL Total 8.3 g/dL 6.4 - 8.4 11/03 [place] CHEM PANEL CO2 22 meq/L 24 - 32 11/03 [place] CHEM PANEL Calcium Lvl 8.7 mg/dL 8.5 - 10.5 11/03 [place] CHEM PANEL Potassium 3.9 meq/L 3.5 - 5.1 11/03 MH Lvl [place] CHEM PANEL Chloride Lvl 108 meq/L 95 - 109 11/03 [place] CHEM PANEL Creatinine 2.82 mg/dL 0.50 - 09 MH Lvl 1.40 [place] CHEM PANEL Sodium Lvl 139 meq/L 135 - 145 11/03 [place] CHEM PANEL BUN 30 mg/dL 7 - 22 11/03 [place] CHEM PANEL Glucose Lvl 137 mg/dL 70 - 99 11/03 [place] CHEM PANEL Albumin Lvl 3.6 g/dL 3.5 - 5.0 11/03 [place] CHEM PANEL Alk Phos 73 unit/L 39 - 136 11/03 [place] CHEM PANEL ALANINE 16 unit/L 0 - 65 11/03 AMINOTRANS [place] RASE CHEM PANEL A/G Ratio 0.8 0.7 - 1.6 11/03 [place] CHEM PANEL B/C Ratio 11 6 - 25 11/03 [place] CHEM PANEL Globulin 4.7 g/dL 2.7 - 4.2 11/03 [place] CHEM PANEL AGAP 12.9 meq/L 10.0 - 11/03 MH 20.0 [place] CHEM PANEL Lipase Lvl 144 unit/L 73 - 393 11/03 [place] HEMATOLOGY Segs 75.6 % 45.0 - 11/03 MH 75.0 [place] HEMATOLOGY Basophils # 0.1 K/CMM 0.0 - 0.2 11/03 [place] HEMATOLOGY Monocytes # 0.9 K/CMM 0.0 - 0.8 11/03 [place] HEMATOLOGY Eosinophils 0.2 K/CMM 0.0 - 0.5 11/03 MH [place] HEMATOLOGY Eosinophils 1.8 % 0.0 - 4.0 11/03 [place] HEMATOLOGY Basophils 0.6 % 0.0 - 1.0 11/03 [place] HEMATOLOGY Lymphocytes 14.5 % 20.0 - 11/03 MH 40.0 [place] HEMATOLOGY Monocytes 7.5 % 2.0 - 12.0 11/03 [place] HEMATOLOGY Segs-Bands # 9.4 K/CMM 1.5 - 8.1 11/03 [place] HEMATOLOGY Lymphocytes 1.8 K/CMM 1.0 - 5.5 11/03 MH [place] HEMATOLOGY MCV 88.5 fL 80.0 - 11/03 MH 94.0 [place] HEMATOLOGY MCH 29.3 pg 27.0 - 11/03 MH 31.0 [place] HEMATOLOGY Hct 40.7 % 42.0 - 11/03 MH 54.0 [place] HEMATOLOGY MCHC 33.2 g/dL 32.0 - 11/03 MH 36.0 [place] HEMATOLOGY RDW 15.1 % 11.5 - 11/03 MH 14.5 [place] HEMATOLOGY Hgb 13.5 g/dL 14.0 - 11/03 MH 18.0 [place] HEMATOLOGY WBC X 10x3 12.5 K/CMM 3.7 - 10.4 11/03 [place] HEMATOLOGY RBC X 10x6 4.60 M/CMM 4.70 - 11/03 MH 6. [place] HEMATOLOGY MPV 8.7 fL 7.4 - 10.4 11/03 [place] HEMATOLOGY Platelet 278 K/CMM 133 - 450 11/03 [place] Abdomen/Pel Abdomen/Pelv EXAM: CT abdomen and pelvis 11/03 - [facility] vis wo IV is wo IV /2016 - [facility] contrast CT contrast CT HISTORY: Abdominal aortic aneurysm, malaise COMPARISON: CT 06/20/2015 Read by: Tereso Nobles MD Dictated Date/time: 11/03/16 13:38 TECHNIQUE: Axial images of the abdomen and pelvis without contrast. Sagittal and coronal reformats. DLP: [id number] Electronically Signed by: Tereso Nobles MD 11/03/16 13:52 FINAL REPORT FINDINGS: Limited exam without contrast. 1. Aortobiiliac endovascular stent is stable with decreased size of the aortic aneurysm with the saccular component measuring 4.6 cm, previously 6 cm. Stable aneurysm right common iliac artery. 2. Polycystic kidneys including complex, hemorrhagic cysts appear stable. 3. Multiple hepatic cysts. Mild fatty change of the liver. 4. Diverticula left colon without diverticulitis. 5. Multiple small para-aortic lymph nodes are stable and nonspecific. 6. COPD. 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 7. Small myelolipoma left adrenal. The right adrenal, gallbladder and pancreas appear unremarkable. Bladder is unremarkable. No free fluid. SL: [id number] Abdomen Abdomen EXAM: Ultrasound abdomen 11/03 - [facility] complete US complete US - [facility] HISTORY: Aortic aneurysm repair, abdominal pain COMPARISON: 06/20/2015 Read by: Tereso Nobles MD Dictated Date/time: 11/03/16 11:45 TECHNIQUE: Grayscale and limited color sonographic evaluation of the abdomen was performed with standard technique. Electronically Signed by: Tereso Nobles MD 11/03/16 11:52 FINAL REPORT FINDINGS: 1. Proximal aorta measures 2.6 cm AP. 2. Echogenic liver may reflect fatty change or other parenchymal disease. Multiple small hepatic cysts. 3. Gallbladder is contracted with mild wall thickening. No gallstone is seen. Visualized common duct measures 2 mm diameter. 4. Polycystic kidneys. No hydronephrosis. 5. Pancreas is not well visualized. 6. The spleen is normal size. 7. IVC is visualized. SL: [id number] CHEM PANEL B/C Ratio 13 6 - 25 09/09 [place] CHEM PANEL Globulin 3.9 g/dL 2.0 - 4.0 09/09 [place] CHEM PANEL A/G Ratio 0.9 0.7 - 1.6 09/09 [place] CHEM PANEL AGAP 8.6 meq/L 10.0 - 09/09 MH 20.0 [place] CHEM PANEL eGFR 27 09/09 Result Comment: The eGFR is calculated using the CKD-EPI formula. In most young, healthy individuals the eGFR will be >90 mL/ min/1.73m2. The eGFR declines with age. An eGFR of 60-89 may be normal in mL/min/1.7 /2015 some populations, particularly the elderly, for whom the CKD-EPI formula has not been extensively validated. Use of the eGFR is not recommended in the following populations: [place] [address] Individuals with unstable creatinine concentrations, including patients and those with serious co-morbid conditions. Patients with extremes in muscle mass or diet. The data above are obtained from the National Kidney Disease Education Program (NKDEP) which additionally recommends that when the eGFR is used in patients with extremes of body mass index for purposes of drug dosing, the eGFR should be multiplied by the estimated BMI. CHEM PANEL Sodium Lvl 142 meq/L 135 - 145 09/09 [place] CHEM PANEL Potassium 4.6 meq/L 3.5 - 5.1 09/09 Lvl [place] CHEM PANEL Creatinine 2.45 mg/dL 0.50 - 09/09 Lvl 1.40 [place] CHEM PANEL Chloride Lvl 110 meq/L 95 - 109 09/09 [place] CHEM PANEL CO2 28 meq/L 24 - 32 09/09 [place] CHEM PANEL Albumin Lvl 3.5 g/dL 3.5 - 5.0 09/09 [place] CHEM PANEL Alk Phos 60 unit/L 39 - 136 09/09 [place] CHEM PANEL BUN 31 mg/dL 7 - 22 09/09 [place] CHEM PANEL Glucose Lvl 81 mg/dL 70 - 99 09/09 [place] CHEM PANEL Bili Total 0.4 mg/dL 0.2 - 1.3 09/09 [place] CHEM PANEL Total 7.4 g/dL 6.4 - 8.4 09/09 MH Protein [place] CHEM PANEL Calcium Lvl 8.5 mg/dL 8.5 - 10.5 07/ MH /2015 [place] CHEM PANEL ALANINE 15 unit/L 0 - 65 07/ MH AMINOTRANSFE /2015 [place] RASE CHEM PANEL ASPARTATE 12 unit/L 0 - 37 07/ MH TRANSAMINASE /2015 [place] HEMATOLOGY Eosinophils 2.6 % 0.0 - 4.0 07/ MH /2015 [place] HEMATOLOGY Lymphocytes 23.1 % 20.0 - 07 MH 40.0 [place] HEMATOLOGY Monocytes 9.4 % 2.0 - 12.0 07/ MH /2015 [place] HEMATOLOGY Eosinophils 0.2 K/CMM 0.0 - 0.5 07/ MH # /2015 [place] HEMATOLOGY Basophils # 0.1 K/CMM 0.0 - 0.2 09/09 [place] HEMATOLOGY Basophils 0.8 % 0.0 - 1.0 09/09 /2015 [place] HEMATOLOGY Lymphocytes 1.8 K/CMM 1.0 - 5.5 09/09 MH # /2015 [place] HEMATOLOGY Monocytes # 0.7 K/CMM 0.0 - 0.8 07 [place] HEMATOLOGY Segs-Bands # 5.0 K/CMM 1.5 - 8.1 09/09 /2015 [place] HEMATOLOGY Segs 64.1 % 45.0 - 09/09 MH 75.0 [place] HEMATOLOGY Platelet 193 K/CMM 133 - 450 09/09 [place] HEMATOLOGY MPV 8.5 fL 7.4 - 10.4 09/09 [place] HEMATOLOGY RDW 17.0 % 11.5 - 07 MH 14.5 [place] HEMATOLOGY MCHC 32.5 g/dL 32.0 - 07 MH 36.0 [place] HEMATOLOGY MCV 89.4 fL 80.0 - 09/09 MH 94.0 [place] HEMATOLOGY RBC X 10x6 4.19 M/CMM 4.70 - 07 MH 6. [place] HEMATOLOGY MCH 29.1 pg 27.0 - 09/09 MH 31.0 [place] HEMATOLOGY Hct 37.5 % 42.0 - 07 MH 54.0 [place] HEMATOLOGY Hgb 12.2 g/dL 14.0 - 09/09 18.0 [place] HEMATOLOGY WBC X 10x3 7.8 K/CMM 3.7 - 10.4 09/09 [place] RAPID Grp A Strep Negative Negative 09/09 Scr [place] (09/10/15 1:55 PM) Neck soft Neck soft Clinical Indication: Mass; 09/09 - [facility] tissue DX tissue DX /2015 - [facility] Comparison: None Read by: Mario Ramey MD Dictated Date/time: 09/10/15 15:33 Electronically Signed by: Mario Ramey MD 09/10/15 15:35 FINAL REPORT 2 view neck Prominent lingual tonsillar tissues. Normal epiglottis. No subglottic airway narrowing. Prevertebral soft tissues normal. No radiopaque foreign body. IMPRESSION: Suspect lingual tonsillar hypertrophy. SL: [id number] URINE AND UA Nitrite Negative Negative 06/19 STOOL [place] (06/20/15 11:22 AM) URINE AND UA 0.2 EU/dL 0.1 - 1.0 06/19 [facility] Urobilinogen /2015 [place] URINE AND UA Leuk Est Negative Negative 06/19 STOOL [place] (06/20/15 11:22 AM) URINE AND UA RBC 0-2 /HPF 0 - 2 06/19 STOOL [place] URINE AND UA WBC 0-2 /HPF None Seen 06/19 [facility] /HPF [place] URINE AND UA Bacteria Few /HPF None Seen 06/19 STO[facility] /HPF [place] URINE AND UA Sq Epi Rare /LPF Few /LPF 06/19 STOOL [place] URINE AND UA Glucose Negative Negative 06/19 STOOL [place] (06/20/15 11:22 AM) URINE AND UA Blood Negative Negative 06/19 STOOL [place] (06/20/15 11:22 AM) URINE AND UA Ketones Negative Negative 06/19 [place] *NA* (06/20/15 11:22 AM) URINE AND UA Bili Negative Negative 06/19 [place] *NA* (06/20/15 11:22 AM) URINE AND UA Color Yellow Yellow 06/19 STOOL [place] *NA* (06/20/15 11:22 AM) URINE AND UA Turbidity Clear Clear 06/19 STOOL [place] (06/20/15 11:22 AM) URINE AND UA pH 6.0 5.0 - 8.0 06/19 STOOL [place] URINE AND UA Spec Grav 1.010 <=1.030 06/19 STOOL [place] URINE AND UA Protein 30 mg/dL Negative 06/19 [facility] mg/dL /2015 [place] CARDIAC CK-MB INDEX null 0.0 - 2.5 06/19 ENZYMES [place] CARDIAC Total CK 29 unit/L 12 - 191 06/19 ENZYMES [place] CARDIAC Troponin-I null 0.00 - 06/19 ENZYMES 0.40 [place] CARDIAC CK MB null 0.5 - 3.6 06/19 ENZYMES [place] CHEM PANEL eGFR 27 06/19 Result Comment: The eGFR is calculated using the CKD-EPI formula. In most young, healthy individuals the eGFR will be >90 mL/ min/1.73m2. The eGFR declines with age. An eGFR of 60-89 may be normal in mL/min/1.7 some populations, particularly the elderly, for whom the CKD-EPI formula has not been extensively validated. Use of the eGFR is not recommended in the following populations: [place] 3m2 Individuals with unstable creatinine concentrations, including patients and those with serious co-morbid conditions. Patients with extremes in muscle mass or diet. The data above are obtained from the National Kidney Disease Education Program (NKDEP) which additionally recommends that when the eGFR is used in patients with extremes of body mass index for purposes of drug dosing, the eGFR should be multiplied by the estimated BMI. CHEM PANEL A/G Ratio 0.7 0.7 - 1.6 06/19 [place] CHEM PANEL B/C Ratio 12 6 - 25 06/19 [place] CHEM PANEL Globulin 4.5 g/dL 2.0 - 4.0 06/19 [place] CHEM PANEL ASPARTATE 12 unit/L 0 - 37 06/19 TRANSAMINASE [place] CHEM PANEL AGAP 12.2 meq/L 10.0 - 06/19 20.0 2016 [place] CHEM PANEL Sodium Lvl 139 meq/L 135 - 145 06/19 [place] CHEM PANEL Potassium 4.2 meq/L 3.5 - 5.1 06/19 MH Lvl /2015 [place] CHEM PANEL BUN 29 mg/dL 7 - 22 06/19 [place] CHEM PANEL Creatinine 2.47 mg/dL 0.50 - 04 MH Lvl 1.40 [place] CHEM PANEL ALANINE 23 unit/L 0 - 65 06/19 MH AMINOTRANS [place] CHEM PANEL Total 7.8 g/dL 6.4 - 8.4 06/19 Protein [place] CHEM PANEL Calcium Lvl 9.0 mg/dL 8.5 - 10.5 06/19 [place] CHEM PANEL Bili Total 0.5 mg/dL 0.2 - 1.3 06/19 [place] CHEM PANEL CO2 28 meq/L 24 - 32 06/19 [place] CHEM PANEL Chloride Lvl 103 meq/L 95 - 109 06/19 [place] CHEM PANEL Glucose Lvl 134 mg/dL 70 - 99 06/19 [place] CHEM PANEL Alk Phos 57 unit/L 39 - 136 06/19 [place] CHEM PANEL Albumin Lvl 3.3 g/dL 3.5 - 5.0 06/19 [place] HEMATOLOGY Basophils 0.6 % 0.0 - 1.0 06/19 [place] HEMATOLOGY Lymphocytes 13.7 % 20.0 - 06/19 MH 40.0 [place] HEMATOLOGY Eosinophils 1.4 % 0.0 - 4.0 06/19 [place] HEMATOLOGY Monocytes 10.4 % 2.0 - 12.0 06/19 [place] HEMATOLOGY Basophils # 0.1 K/CMM 0.0 - 0.2 06/19 [place] HEMATOLOGY Eosinophils 0.2 K/CMM 0.0 - 0.5 06/19 MH # [place] HEMATOLOGY Segs-Bands # 8.3 K/CMM 1.5 - 8.1 06/19 [place] HEMATOLOGY Lymphocytes 1.5 K/CMM 1.0 - 5.5 06/19 MH [place] HEMATOLOGY Monocytes # 1.2 K/CMM 0.0 - 0.8 06/19 [place] HEMATOLOGY Segs 73.9 % 45.0 - 06/19 MH 75.0 [place] HEMATOLOGY MCH 28.3 pg 27.0 - 06/19 MH 31.0 [place] HEMATOLOGY MCV 88.6 fL 80.0 - 06/19 MH 94.0 /2015 [place] HEMATOLOGY RDW 13.4 % 11.5 - 06/19 MH 14.5 [place] HEMATOLOGY MCHC 31.9 g/dL 32.0 - 06/19 MH 36.0 /2015 [place] HEMATOLOGY WBC X 10x3 11.3 K/CMM 3.7 - 10.4 06/19 /2015 [place] HEMATOLOGY Hct 39.5 % 42.0 - 06/19 MH 54.0 [place] HEMATOLOGY Hgb 12.6 g/dL 14.0 - 06/19 MH 18.0 [place] HEMATOLOGY RBC X 10x6 4.46 M/CMM 4.70 - 06/19 6.10 [place] HEMATOLOGY Platelet 321 K/CMM 133 - 450 06/19 [facility] MPV 8.5 fL 7.4 - 10.4 06/19 [facility] aPTT 32.0 s 22.9 - 06/19 MH 35.8 /2015 [place] HEMATOLOGY INR 1.00 0.85 - 06/19 MH 1.17 [place] HEMATOLOGY PROTIME 13.5 s 12.0 - 06/19 14.7 [place] Spine Spine Patient Name: ZENIA TIJERINA 06/19 - [facility] Thoracic wo Thoracic wo /2015 - [place] contrast contrast MRI : 1955; Age: 60 years y/o Male MRI MR: [id number] Read by: Alli Lugo MD Dictated Date/time: 06/20/15 15:57 Electronically Signed by: Alli Lugo MD 06/20/15 15:59 FINAL REPORT Study: Spine Thoracic wo contrast MRI 06/20/2015 1:05 PM CDT Clinical Indication: Weakness; Comparison: None TECHNIQUE: Multiplanar T1, T2, STIR weighted noncontrast MRI of the thoracic spine is performed on the 1.5 Emily magnet. FINDINGS: ALIGNMENT AND GENERAL SURVEY: There is normal alignment of the thoracic spine. The bone marrow is normal for the patient's age. There are no fractures or compression deformities. The thoracic spi ne posterior elements are normal. The costovertebral junctions are unremarkable. SPINAL CORD: The thoracic spine spinal cord is normal in size and signal. The CSF space is unremarkable. DISK SPACES: The discs show normal hydration and signal. There is no disc bulge, protrusion or degenerative change and no significant central or foraminal stenosis. Other findings: Moderate-severe facet arthrosis in the lower lumbar spine at T9-T10 is seen. There is resulting moderate right neural foraminal narrowing. Incidental note is made of numerous bilateral renal cysts. Multiple hepatic cysts are also partially visualized. IMPRESSION: 1. No acute bony abnormality of the thoracic spine and no spinal canal stenosis. 2. No significant disc bulges or protrusions throughout the thoracic spine. 3. Facet arthrosis in the lower thoracic spine with moderate right neural foraminal narrowing at T9-T10. SL: [id number] Spine Spine lumbar Study: Spine lumbar wo contrast MRI 06/19 - [facility] lumbar wo wo contrast /2015 - [place] contrast MRI MRI Clinical Indication: Weakness Read by: Alli Lugo MD Dictated Date/time: 06/20/15 15:53 Electronically Signed by: Alli Lugo MD 06/20/15 15:56 FINAL REPORT Comparison: CT abdomen and pelvis from 06/20/2015 TECHNIQUE: Multiplanar, multisequence magnetic resonance imaging of the lumbar spine was performed without the administration of intravenous gadolinium contrast. FINDINGS: 5 nonrib-bearing lumbar vertebra are present. No acute compression fracture or subluxation is seen. No vertebral body marrow edema is noted. Disc desiccation with mild disc height loss at L2-L3 and L3-L 4 is seen. The conus terminates at L1-L2. Numerous bilateral renal cysts are noted. Changes of endovascular stent graft repair across an infrarenal abdominal aortic aneurysm are seen. Findings by level: T12-L1: The disc is normal. There is no central or foraminal stenosis. The facet joints are unremarkable. L1-L2: The disc is normal. There is no central or foraminal stenosis. The facet joints are unremarkable. L2-L3: The disc is normal. There is no central or foraminal stenosis. The facet joints are unremarkable. L3-L4: Small annular disc bulge is seen. Mild facet arthrosis is noted. There is no spinal canal stenosis. Mild right neural foraminal narrowing is present. L4-L5: Small annular disc bulge is present. Mild to moderate facet arthrosis is seen. There is no spinal canal stenosis or neural foraminal narrowing. L5-S1: Negative for significant disc bulge or protrusion. Mild to moderate facet arthrosis is seen. There is no spinal canal stenosis or neural foraminal narrowing. The cauda equina and nerve roots are unremarkable. IMPRESSION: 1. Degenerative changes of the lumbar spine with mild right neural foraminal narrowing at L3-L4. 2. No spinal canal stenosis throughout the lumbar spine. SL: [id number] Renal Stone Renal Stone Renal Stone CT 06/19 - [facility] CT CT /2015 - [place] TECHNIQUE: Contiguous transaxial images of the abdomen and pelvis were performed from the lung bases to the superior pubic rami without IV contrast. Read by: Lenin Berry MD Dictated Date/time: 06/20/15 12:03 Electronically Signed by: Lenin Berry MD 06/20/15 12:21 FINAL REPORT COMPARISON: None CLINICAL HX: Back pain. CT ABDOMEN: Lower Chest: Indeterminant 14 mm low-density nodule is visualized at the right lung base. The lung bases are otherwise clear. GI Tract: Bowel gas pattern is unremarkable. Appendix demonstrates normal morphology. There is no evidence for free fluid or free air in the abdomen. Tract and Retroperitoneum: There are too numerous to count cysts identified in both kidneys. Some of the cysts demonstrate mild increase in attenuation. Others are faintly peripherally calcified. Abdominal viscera: Multiple hepatic cysts are visualized in the liver. The spleen, pancreas, and both adrenals demonstrate no gross abnormalities given the limitation of lack of IV contrast. Gallbladder demonstrates normal morphology. Vasculature: Infrarenal AAA has been stabilized by a endovascular graft. This extends from the level of the renal arteries into the respective proximal common iliac arteries. Maximum diameter of the ao rta is noted just above the bifurcation and measures approximately 6 cm in the AP dimension. No prior imaging is available for comparison. There is no periaortic edema. No significant free fluid is present in the abdomen or pelvis. Bone and Soft tissues: No significant bony abnormality is noted. CT PELVIS: The bladder, seminal vesicles and the prostate are unremarkable in appearance, given the limitation of lack of IV contrast. Prostatic calcifications. No free fluid is present in the pelvis. There are paez rgical clips noted in the region of the groins bilaterally. IMPRESSION: Endovascular graft is in place. No CT signs for aortic rupture. Contrast study is needed to evaluate for patency of the graft and assess for endoleaks. Changes related to adult polycystic kidney disease are noted.. Indeterminate 14 mm low-density lesion right lung base. No other significant acute abnormality is noted on the noncontrast CT of the abdomen and pelvis. SL: [id number] Chest 1view Chest 1view Portable chest: The cardiomediastinal silhouette and pulmonary vasculature are within normal limits. The lungs and pleural spaces are clear. There are no acute osseous abnormalities. There is no significant change compared to 07/06/2013. 06/19 - [facility] DX DX /2015 - [place] IMPRESSION: Read by: Zenia Rios MD Dictated Date/time: 06/20/15 10:44 Electronically Signed by: Zenia Rios MD 06/20/15 10:45 FINAL REPORT No acute radiographic abnormality in the chest. SL 13 Vital Signs Vital Sign Value Date Comments Source Respitory Rate 18 11/03/2016 [facility] Temperature Oral (F) 98.3 F 11/03/2016 [facility] Systolic (mm Hg) 131 11/03/2016 [facility] Diastolic (mm Hg) 61 11/03/2016 [facility] Heart Rate 84 11/03/2016 [facility] Heart Rate 75 11/03/2016 [facility] Systolic (mm Hg) 143 11/03/2016 [facility] Diastolic (mm Hg) 78 11/03/2016 [facility] Respitory Rate 18 11/03/2016 [facility] Respitory Rate 18 11/03/2016 [facility] Systolic (mm Hg) 126 11/03/2016 [facility] Diastolic (mm Hg) 82 11/03/2016 [facility] Temperature Oral (F) 98.2 F 11/03/2016 [facility] Heart Rate 88 11/03/2016 [facility] Weight 118.182 11/03/2016 [facility] BMI Calculated 33.45 11/03/2016 [facility] Height 187.96 cm 11/03/2016 [facility] Temperature Oral (F) 98.0 F 11/03/2016 [facility] Systolic (mm Hg) 136 09/10/2015 [facility] Diastolic (mm Hg) 72 09/10/2015 [facility] Temperature Oral (F) 98.1 F 09/10/2015 [facility] Heart Rate 60 09/10/2015 [facility] Respitory Rate 20 09/10/2015 [facility] Temperature Oral (F) 97.7 F 09/10/2015 [facility] Respitory Rate 18 09/10/2015 [facility] Heart Rate 58 09/10/2015 [facility] Systolic (mm Hg) 140 09/10/2015 [facility] Diastolic (mm Hg) 65 09/10/2015 [facility] Systolic (mm Hg) 105 06/20/2015 [facility] Diastolic (mm Hg) 50 06/20/2015 [facility] Respitory Rate 16 06/20/2015 [facility] Temperature Oral (F) 98.6 F 06/20/2015 [facility] Systolic (mm Hg) 115 06/20/2015 [facility] Diastolic (mm Hg) 66 06/20/2015 [facility] Respitory Rate 20 06/20/2015 [facility] Respitory Rate 19 06/20/2015 [facility] Systolic (mm Hg) 110 06/20/2015 [facility] Diastolic (mm Hg) 61 06/20/2015 [facility] Temperature Oral (F) 97.7 F 06/20/2015 [facility] Weight 118.182 06/20/2015 [facility] Heart Rate 71 06/20/2015 [facility] Encounters Location Location Encounter Encounter Reason Attending ADM DC Status Source Details Type Number For Provider Date Date Visit [facility] Outpt Diag [id number] Segundo 06/05 06/06 [facility] [place] [facility] [place] [id number] Maysangita 06/19 06/19 [facility] [place] /2015 [facility] EC [id number] [facility] 09/09 09[facility] Emergency [id number] Damion 11/03 11/03 [facility] Monson /2016 [facility] Procedures Procedure Code Date Perfomer Comments Source AAA - Repair of [id number] [facility] abdominal aortic aneurysm using bifurcation graft
--- OUTSIDE RECORDS SUMMARY | 2018-04-09 18:46 | XMS REPORT | Summary of Care ---
:1955 Author Organization [facility] Address [address] [place] [address]- Encounter HQ Zara_rod(FIN) [id number] Date(s): 09/10/15 - 09/10/15 [facility] [id number] [place] [phone] Discharge Diagnosis: Sore throat Discharge Diagnosis: Foreign body (FB) in soft tissue (Throat) Discharge Disposition: Home Attending Physician: Brigido Menendez MD Vital Signs Most recent to oldest [Reference Range]: 1 2 Temperature Oral [96.4-99.1 DegF] 98.1 DegF 97.7 DegF (09/10/15 4:29 PM) (09/10/15 12:44 PM) Blood Pressure [90-140/60-90 mmHg] 136/72 mmHg 140/65 mmHg (09/10/15 4:29 PM) (09/10/15 12:44 PM) Respiratory Rate [14-20 BRMIN] 20 BRMIN 18 BRMIN (09/10/15 4:29 PM) (09/10/15 12:44 PM) Peripheral Pulse Rate [60-100 bpm] 60 bpm 58 bpm (09/10/15 4:29 PM) *LOW* (09/10/15 12:44 PM) Problem List Condition Effective Dates Status Health Status Informant Chronic obstructive lung disease1 Active COPD(Confirmed) Resolved Essential hypertension2 Active Gastroesophageal reflux disease3 Active Gout4 Active Hypercholesterolemia5 Active Hypertension(Confirmed) Resolved Hypogonadism6 Active 1Data migrated from [employer] on 07/29/14.2Data migrated from [employer] on 07/29/14.3Data migrated from [employer] on 07/29/14.4Data migrated from [employer] on 07/29/14.5Data migrated from [employer] on 07/29/14.6Data migrated from [employer] on 07/29/14. Allergies, Adverse Reactions, Alerts Substance Reaction Severity Status NKDA Active Medications clindamycin 300 mg oral capsule 300 mg=1 cap, PO, TID, X 10 day, # 30 cap, 0 Refill(s) Start Date: 09/10/15 Stop Date: 09/20/15 Status: OrderedGI cocktail 30 mL, Route: PO, Drug Form: SUSP, Dosing Weight 127.273, kg, ONCE, STAT, Start date: 09/10/15 16:05:00 CDT, Stop date: 09/10/15 16:05:00 CDT Notes: G.I. Cocktail=antacid with simethicone 22.5 mL - lidocaine viscous 7.5 mL Start Date: 09/10/15 Stop Date: 09/10/15 Status: Completed Results ELECTROLYTES Most recent to oldest [Reference Range]: 1 Sodium Lvl [135-145 mEq/L] 142 mEq/L (09/10/15 1:55 PM) Potassium Lvl [3.5-5.1 mEq/L] 4.6 mEq/L (09/10/15 1:55 PM) Chloride Lvl [95-109 mEq/L] 110 mEq/L *HI* (09/10/15 1:55 PM) CO2 [24-32 mEq/L] 28 mEq/L (09/10/15 1:55 PM) AGAP [10.0-20.0 mEq/L] 8.6 mEq/L *LOW* (09/10/15 1:55 PM) CHEM PANEL Most recent to oldest [Reference Range]: 1 Creatinine Lvl [0.50-1.40 mg/dL] 2.45 mg/dL *HI* (09/10/15 1:55 PM) eGFR 27 mL/min/1.73m2 1 *NA* (09/10/15 1:55 PM) BUN [7-22 mg/dL] 31 mg/dL *HI* (09/10/15 1:55 PM) B/C Ratio [6-25] 13 (09/10/15 1:55 PM) Glucose Lvl [70-99 mg/dL] 81 mg/dL (09/10/15 1:55 PM) Total Protein [6.4-8.4 g/dL] 7.4 g/dL (09/10/15 1:55 PM) Albumin Lvl [3.5-5.0 g/dL] 3.5 g/dL (09/10/15 1:55 PM) Globulin [2.0-4.0 g/dL] 3.9 g/dL (09/10/15 1:55 PM) A/G Ratio [0.7-1.6] 0.9 (09/10/15 1:55 PM) Calcium Lvl [8.5-10.5 mg/dL] 8.5 mg/dL (09/10/15 1:55 PM) ALT [0-65 unit/L] 15 unit/L (09/10/15 1:55 PM) AST [0-37 unit/L] 12 unit/L (09/10/15 1:55 PM) Alk Phos [39-136 unit/L] 60 unit/L (09/10/15 1:55 PM) Bili Total [0.2-1.3 mg/dL] 0.4 mg/dL (09/10/15 1:55 PM) 1Result Comment: The eGFR is calculated using the CKD-EPI formula. In most young , healthy individualsthe eGFR will be >90 mL/min/1.73m2. The eGFR declines with age. An eGFR of 60-89 may be normal in some populations, particularly the elderly, for whom the CKD-EPI formula has not been extensively validated. Use of the eGFR is not recommended in the following populations: Individuals with unstable creatinine concentrations, including patients and those with serious co-morbid conditions. Patients with extremes in muscle mass or diet. The data above are obtained from the National Kidney Disease Education Program ( NKDEP) which additionally recommends that when the eGFR is used in patients with extremes of body mass index for purposesof drug dosing, the eGFR should be multiplied by the estimated BMI.HEMATOLOGY Most recent to oldest [Reference Range]: 1 WBC [3.7-10.4 K/CMM] 7.8 K/CMM (09/10/15 1:55 PM) RBC [4.70-6.10 M/CMM] 4.19 M/CMM *LOW* (09/10/15 1:55 PM) Hgb [14.0-18.0 g/dL] 12.2 g/dL *LOW* (09/10/15 1:55 PM) Hct [42.0-54.0 %] 37.5 % *LOW* (09/10/15 1:55 PM) MCV [80.0-94.0 fL] 89.4 fL (09/10/15 1:55 PM) MCH [27.0-31.0 pg] 29.1 pg (09/10/15 1:55 PM) MCHC [32.0-36.0 g/dL] 32.5 g/dL (09/10/15 1:55 PM) RDW [11.5-14.5 %] 17.0 % *HI* (09/10/15 1:55 PM) Platelet [133-450 K/CMM] 193 K/CMM (09/10/15 1:55 PM) MPV [7.4-10.4 fL] 8.5 fL (09/10/15 1:55 PM) Segs [45.0-75.0 %] 64.1 % (09/10/15 1:55 PM) Lymphocytes [20.0-40.0 %] 23.1 % (09/10/15 1:55 PM) Monocytes [2.0-12.0 %] 9.4 % (09/10/15 1:55 PM) Eosinophils [0.0-4.0 %] 2.6 % (09/10/15 1:55 PM) Basophils [0.0-1.0 %] 0.8 % (09/10/15 1:55 PM) Segs-Bands # [1.5-8.1 K/CMM] 5.0 K/CMM (09/10/15 1:55 PM) Lymphocytes # [1.0-5.5 K/CMM] 1.8 K/CMM (09/10/15 1:55 PM) Monocytes # [0.0-0.8 K/CMM] 0.7 K/CMM (09/10/15 1:55 PM) Eosinophils # [0.0-0.5 K/CMM] 0.2 K/CMM (09/10/15 1:55 PM) Basophils # [0.0-0.2 K/CMM] 0.1 K/CMM (09/10/15 1:55 PM) RAPID Most recent to oldest [Reference Range]: 1 Grp A Strep Scr [Negative] Negative (09/10/15 1:55 PM) Immunizations No data available for this section Procedures Procedure Date Related Diagnosis Body Site AAA - Repair of abdominal aortic aneurysm using bifurcation graft Social History Social History Type Response Smoking Status Former smoker; Type: Cigarettes; Exposure to Tobacco Smoke None ; Cigarette Smoking Last 365 Days No; Reg Smoking Cessation Counseling No Assessment and Plan No data available for this section
--- OUTSIDE RECORDS SUMMARY | 2018-04-09 18:46 | XMS REPORT | Summary of Care ---
:1955 Author Encounter HQ Josentr_rod([facility]) [id number] Date(s): 06/05/14 - 06/05/14 [facility] Outpatient Imaging [address] [phone]- [phone] Discharge Disposition: Home Physician Attending: Segundo Lugo MD Vital Signs No data available for this section Problem List Condition Effective Dates Status Health Status Informant COPD(Confirmed) Resolved Hypertension(Confirmed) Resolved Allergies, Adverse Reactions, Alerts Substance Reaction Severity Status NKDA Active Medications No data available for this section Results No data available for this section Immunizations No data available for this section Procedures No data available for this section Social History Social History Type Response Smoking Status Former smoker; Type: Cigarettes; Exposure to Tobacco Smoke None ; Cigarette Smoking Last 365 Days No; Reg Smoking Cessation Counseling No Assessment and Plan No data available for this section
--- OUTSIDE RECORDS SUMMARY | 2018-04-09 18:46 | XMS REPORT | Summary of Care ---
:1955 Author Organization [facility] Address [address] [place] [address]- Encounter HQ Lexr_rod(FIN) [id number] Date(s): 11/03/16 - 11/03/16 [facility] [id number] [place] [phone] Discharge Diagnosis: Hypomagnesemia Discharge Diagnosis: Generalized weakness Discharge Diagnosis: Hypophosphatemia Discharge Disposition: Home or Self Care Attending Physician: Damion Monson MD PHD Vital Signs Most recent to oldest [Reference 1 2 3 Range]: Height 187.96 cm (11/03/16 10:02 AM) Temperature Oral [96.4-99.1 98.3 DegF 98.2 DegF 98.0 DegF DegF] (11/03/16 4:15 PM) (11/03/16 2:32 PM) (11/03/16 10:02 AM) Blood Pressure [90-140/60-90 131/61 mmHg 143/78 mmHg 126/82 mmHg mmHg] (11/03/16 4:15 PM) *HI* (11/03/16 2:32 PM) (11/03/16 3:15 PM) Respiratory Rate [14-20 BRMIN] 18 BRMIN 18 BRMIN 18 BRMIN (11/03/16 4:15 PM) (11/03/16 3:15 PM) (11/03/16 2:32 PM) Peripheral Pulse Rate [60-100 84 bpm 75 bpm 88 bpm bpm] (11/03/16 4:15 PM) (11/03/16 3:15 PM) (11/03/16 2:32 PM) Weight 118.182 kg (11/03/16 10:02 AM) Body Mass Index 33.45 m2 (11/03/16 10:02 AM) Problem List Condition Effective Dates Status Health Status Informant Aneurysm of abdominal Resolved aorta(Confirmed) Chronic obstructive lung disease1 Active COPD(Confirmed) Resolved Essential hypertension2 Active Gastroesophageal reflux disease3 Active Gout4 Active Hypercholesterolemia5 Active Hyperlipidemia(Confirmed) Resolved Hypertension(Confirmed) Resolved Hypogonadism6 Active 1Data migrated from [employer] on 07/29/14.2Data migrated from [employer] on 07/29/14.3Data migrated from [employer] on 07/29/14.4Data migrated from [employer] on 07/29/14.5Data migrated from [employer] on 07/29/14.6Data migrated from [employer] on 07/29/14. Allergies, Adverse Reactions, Alerts Substance Reaction Severity Status NKDA Active Medications GI cocktail 30 mL, Route: PO, Drug Form: SUSP, Dosing Weight 118.182, kg, ONCE, STAT, Start date: 11/03/16 10:34:00 CDT, Stop date: 11/03/16 10:34:00 CDT Notes: G.I. Cocktail=antacid with simethicone 22.5 mL - lidocaine viscous 7.5 mL Start Date: 11/03/16 Stop Date: 11/03/16 Status: CompletedK-Phos Neutral oral tablet Route: PO, Drug Form: TAB, Dosing Weight 118.182, kg, ONCE, Start date: 14:54:00 CDT, Stop date: 11/03/16 14:54:00 CDT Notes: (Same as: K-Phos Neutral, Phospha 250 Neutral) Start Date: 11/03/16 Stop Date: 11/03/16 Status: Deletedmagnesium sulfate 2gm / NS 50ml (premixed) 2 gm, 50 mL, Route: IVPB, Drug form: INJ, ONCE, Dosing Weight 118.182, kg, Start date: 11/03/16 14:52:00 CDT, Duration: 2 hr, Stop date: 11/03/16 14:52:00 CDT Notes: WASTE: F/P - Sink; E - Municipal Trash Bin Start Date: 11/03/16 Stop Date: 11/03/16 Status: Completedpotassium phosphate-sodium phosphate 250 mg-45 mg-298 mg oral tablet Route: PO, Drug Form: PDR/REC, Dosing Weight 118.182, kg, ONCE, Start date: 06/16 15:02:00 CDT, Stop date: 11/03/16 15:02:00 CDT Notes: (Same as: Phos-NaK) Each 1.5 gm pkt has 250mg phosphorous. Mix w/2.5oz water and stir. Start Date: 11/03/16 Stop Date: 11/03/16 Status: CompletedSaline Flush 0.9% 10 mL, Route: IVP, Drug Form: INJ, Dosing Weight 118.182, kg, ONCE, PRN Line Flush, Start date: 11/03/16 10:34:00 CDT Notes: (Same as: BD Posiflush) Start Date: 11/03/16 Stop Date: 11/03/16 Status: DiscontinuedSodium Chloride 0.9% IV (Sodium Chloride 0.9% (Bolus) IV) 1,000 mL, 2,000 ml/hr, Infuse Over: 30 minutes, Route: IV, 1,000, Drug form: INJ , ONCE, Priority: STAT, Dosing Weight 118.182 kg, Start date: 11/03/16 10:34:00 CDT, Duration: 1 doses or times, Stop date: 11/03/16 10:34:00 CDT Start Date: 11/03/16 Stop Date: 11/03/16 Status: Completed Results ELECTROLYTES Most recent to oldest [Reference Range]: 1 Sodium Lvl [135-145 mEq/L] 139 mEq/L (11/03/16 10:41 AM) Potassium Lvl [3.5-5.1 mEq/L] 3.9 mEq/L (11/03/16 10:41 AM) Chloride Lvl [95-109 mEq/L] 108 mEq/L (11/03/16 10:41 AM) CO2 [24-32 mEq/L] 22 mEq/L *LOW* (11/03/16 10:41 AM) AGAP [10.0-20.0 mEq/L] 12.9 mEq/L (11/03/16 10:41 AM) CHEM PANEL Most recent to oldest [Reference Range]: 1 Creatinine Lvl [0.50-1.40 mg/dL] 2.82 mg/dL *HI* (11/03/16 10:41 AM) eGFR 23 mL/min/1.73m2 1 *NA* (11/03/16 10:41 AM) BUN [7-22 mg/dL] 30 mg/dL *HI* (11/03/16 10:41 AM) B/C Ratio [6-25] 11 (11/03/16 10:41 AM) Glucose Lvl [70-99 mg/dL] 137 mg/dL *HI* (11/03/16 10:41 AM) Total Protein [6.4-8.4 g/dL] 8.3 g/dL (11/03/16 10:41 AM) Albumin Lvl [3.5-5.0 g/dL] 3.6 g/dL (11/03/16 10:41 AM) Globulin [2.7-4.2 g/dL] 4.7 g/dL *HI* (11/03/16 10:41 AM) A/G Ratio [0.7-1.6] 0.8 (11/03/16 10:41 AM) Calcium Lvl [8.5-10.5 mg/dL] 8.7 mg/dL (11/03/16 10:41 AM) Phosphorus [2.5-4.5 mg/dL] 2.0 mg/dL *LOW* (11/03/16 10:41 AM) Magnesium Lvl [1.8-2.4 mg/dL] 1.5 mg/dL *LOW* (11/03/16 10:41 AM) ALT [0-65 unit/L] 16 unit/L (11/03/16 10:41 AM) AST [0-37 unit/L] 11 unit/L (11/03/16 10:41 AM) Alk Phos [39-136 unit/L] 73 unit/L (11/03/16 10:41 AM) Bili Total [0.2-1.3 mg/dL] 0.5 mg/dL (11/03/16 10:41 AM) Lipase Lvl [73-393 unit/L] 144 unit/L (11/03/16 10:41 AM) 1Result Comment: The eGFR is calculated using [...] eGFR should be multiplied by the estimated BMI.CARDIAC ENZYMES Most recent to oldest [Reference Range]: 1 Troponin-I [0.00-0.40 ng/mL] <0.02 ng/mL (11/03/16 10:41 AM) URINE AND STOOL Most recent to oldest [Reference Range]: 1 UA Turbidity [Clear] Clear (11/03/16 11:40 AM) UA Color [Yellow] Yellow *NA* (11/03/16 11:40 AM) UA pH [5.0-8.0] 5.5 (11/03/16 11:40 AM) UA Spec Grav [<=1.030] 1.020 (11/03/16 11:40 AM) UA Glucose [Negative] Negative (11/03/16 11:40 AM) UA Blood [Negative] Moderate *ABN* (11/03/16 11:40 AM) UA Ketones [Negative] Negative *NA* (11/03/16 11:40 AM) UA Protein [Negative mg/dL] 100 mg/dL *ABN* (11/03/16 11:40 AM) UA Urobilinogen [0.1-1.0 EU/dL] 0.2 EU/dL (11/03/16 11:40 AM) UA Bili [Negative] Negative *NA* (11/03/16 11:40 AM) UA Leuk Est [Negative] Negative (11/03/16 11:40 AM) UA Nitrite [Negative] Negative (11/03/16 11:40 AM) UA WBC [None Seen /HPF] 0-2 /HPF (11/03/16 11:40 AM) UA RBC [0-2 /HPF] 0-2 /HPF (11/03/16 11:40 AM) UA Bacteria [None Seen /HPF] Occasional /HPF (11/03/16 11:40 AM) UA Sq Epi [Few /LPF] Rare /LPF (11/03/16 11:40 AM) UA Hyal Cast [0-2] 0-2 (11/03/16 11:40 AM) HEMATOLOGY Most recent to oldest [Reference Range]: 1 WBC [3.7-10.4 K/CMM] 12.5 K/CMM *HI* (11/03/16 10:41 AM) RBC [4.70-6.10 M/CMM] 4.60 M/CMM *LOW* (11/03/16 10:41 AM) Hgb [14.0-18.0 g/dL] 13.5 g/dL *LOW* (11/03/16 10:41 AM) Hct [42.0-54.0 %] 40.7 % *LOW* (11/03/16 10:41 AM) MCV [80.0-94.0 fL] 88.5 fL (11/03/16 10:41 AM) MCH [27.0-31.0 pg] 29.3 pg (11/03/16 10:41 AM) MCHC [32.0-36.0 g/dL] 33.2 g/dL (11/03/16 10:41 AM) RDW [11.5-14.5 %] 15.1 % *HI* (11/03/16 10:41 AM) Platelet [133-450 K/CMM] 278 K/CMM (11/03/16 10:41 AM) MPV [7.4-10.4 fL] 8.7 fL (11/03/16 10:41 AM) Segs [45.0-75.0 %] 75.6 % *HI* (11/03/16 10:41 AM) Lymphocytes [20.0-40.0 %] 14.5 % *LOW* (11/03/16 10:41 AM) Monocytes [2.0-12.0 %] 7.5 % (11/03/16 10:41 AM) Eosinophils [0.0-4.0 %] 1.8 % (11/03/16 10:41 AM) Basophils [0.0-1.0 %] 0.6 % (11/03/16 10:41 AM) Segs-Bands # [1.5-8.1 K/CMM] 9.4 K/CMM *HI* (11/03/16 10:41 AM) Lymphocytes # [1.0-5.5 K/CMM] 1.8 K/CMM (11/03/16 10:41 AM) Monocytes # [0.0-0.8 K/CMM] 0.9 K/CMM *HI* (11/03/16 10:41 AM) Eosinophils # [0.0-0.5 K/CMM] 0.2 K/CMM (11/03/16 10:41 AM) Basophils # [0.0-0.2 K/CMM] 0.1 K/CMM (11/03/16 10:41 AM) Immunizations No data available for this section [...]
--- OUTSIDE RECORDS SUMMARY | 2018-04-09 18:46 | XMS REPORT | Summary of Care ---
:1955 Author Organization [facility] Address [address] [place] [address]- Encounter HQ Zara_rod(VIJAY) [id number] Date(s): 06/20/15 - 06/20/15 [facility] [id number] [place] [id number]- [facility] [phone] Final: Weakness Final: Abdominal aortic aneurysm, without rupture Final: Idiopathic gout, unspecified site Final: Hypertensive chronic kidney disease with stage 1 through stage 4 chronic kidney disease, or unspecified chronic kidney disease Final: Chronic kidney disease, unspecified Discharge Diagnosis: Weakness Discharge Diagnosis: Chronic back pain Discharge Diagnosis: History of AAA (abdominal aortic aneurysm) repair Discharge Diagnosis: Articular gout Discharge Disposition: Home Attending Physician: Geraldo Thornton MD Vital Signs Most recent to oldest 1 2 3 [Reference Range]: Temperature Oral [96.4-99.1 98.6 DegF 97.7 DegF DegF] (06/20/15 3:50 PM) (06/20/15 10:10 AM) Blood Pressure [90-140/60-90 105/50 mmHg 110/61 mmHg mmHg] (06/20/15 3:50 PM) (06/20/15 12:24 PM) Systolic Blood Pressure 115 mmHg [90-140 mmHg] (06/20/15 1:31 PM) Diastolic Blood Pressure 66 mmHg [60-90 mmHg] (06/20/15 1:31 PM) Respiratory Rate [14-20 16 BRMIN 20 BRMIN 19 BRMIN BRMIN] (06/20/15 3:50 PM) (06/20/15 1:31 PM) (06/20/15 1:30 PM) Peripheral Pulse Rate [60-100 71 bpm bpm] (06/20/15 10:10 AM) Weight 118.182 kg (06/20/15 10:10 AM) Problem List Condition Effective Dates Status [...] Substance Reaction Severity Status NKDA Active Medications Medrol Dosepak 4 mg oral tablet See Instructions, PO, Take by mouth as directed on label., X 6 day, # 1 Pack, 0 Refill(s) Start Date: 06/20/15 Stop Date: 06/26/15 Status: Orderedmorphine Sulfate 4 mg, 2 mL, Route: IVP, Drug form: INJ, ONCE, Dosing Weight 118.182, kg, Priority: STAT, Start date:06/20/15 11:00:00 CDT, Stop date: 06/20/15 11:00:00 CDT Notes: (Same as:MORPhine Sulfate) Start Date: 06/20/15 Stop Date: 06/20/15 Status: CompletedNS (Bolus) IV 1,000 mL, 1,000 ml/hr, Infuse Over: 1 hr, Route: IV, 1,000, Drug form: INJ, ONCE , Priority: STAT, Dosing Weight 118.182 kg, Start date: 06/20/15 12:27:00 CDT, Duration: 1 doses or times, Stop date: 06/20/15 12:27:00 CDT Start Date: 06/20/15 Stop Date: 06/20/15 Status: CompletedSaline Flush 0.9% 10 mL, Route: IVP, Drug Form: INJ, kg, PRN, PRN Line Flush, Start date: 10:18:00 CDT, Duration: 30 day, Stop date: 07/20/15 10:17:00 CDT Notes: (Same as: BD Posiflush) Start Date: 06/20/15 Stop Date: 06/20/15 Status: DiscontinuedZofran 4 mg, 2 mL, Route: IVP, Drug form: INJ, ONCE, Dosing Weight 118.182, kg, Priority: STAT, Start date:06/20/15 11:01:00 CDT, Stop date: 06/20/15 11:01:00 CDT Notes: (Same as: Zofran) MEDICATION WASTE Product Size: 4 mgProduct Wasted: ___ mg Start Date: 06/20/15 Stop Date: 06/20/15 Status: Completed Results ELECTROLYTES Most recent to oldest [Reference Range]: 1 Sodium Lvl [135-145 mEq/L] 139 mEq/L (06/20/15 10:37 AM) Potassium Lvl [3.5-5.1 mEq/L] 4.2 mEq/L (06/20/15 10:37 AM) Chloride Lvl [95-109 mEq/L] 103 mEq/L (06/20/15 10:37 AM) CO2 [24-32 mEq/L] 28 mEq/L (06/20/15 10:37 AM) AGAP [10.0-20.0 mEq/L] 12.2 mEq/L (06/20/15 10:37 AM) CHEM PANEL Most recent to oldest [Reference Range]: 1 Creatinine Lvl [0.50-1.40 mg/dL] 2.47 mg/dL *HI* (06/20/15 10:37 AM) eGFR 27 mL/min/1.73m2 1 *NA* (06/20/15 10:37 AM) BUN [7-22 mg/dL] 29 mg/dL *HI* (06/20/15 10:37 AM) B/C Ratio [6-25] 12 (06/20/15 10:37 AM) Glucose Lvl [70-99 mg/dL] 134 mg/dL *HI* (06/20/15 10:37 AM) Total Protein [6.4-8.4 g/dL] 7.8 g/dL (06/20/15 10:37 AM) Albumin Lvl [3.5-5.0 g/dL] 3.3 g/dL *LOW* (06/20/15 10:37 AM) Globulin [2.0-4.0 g/dL] 4.5 g/dL *HI* (06/20/15 10:37 AM) A/G Ratio [0.7-1.6] 0.7 (06/20/15 10:37 AM) Calcium Lvl [8.5-10.5 mg/dL] 9.0 mg/dL (06/20/15 10:37 AM) ALT [0-65 unit/L] 23 unit/L (06/20/15 10:37 AM) AST [0-37 unit/L] 12 unit/L (06/20/15 10:37 AM) Alk Phos [39-136 unit/L] 57 unit/L (06/20/15 10:37 AM) Bili Total [0.2-1.3 mg/dL] 0.5 mg/dL (06/20/15 10:37 AM) 1Result Comment: The eGFR is calculated [...] Most recent to oldest [Reference Range]: 1 Total CK [12-191 unit/L] 29 unit/L (06/20/15 10:37 AM) CK MB [0.5-3.6 ng/mL] <0.5 ng/mL (06/20/15 10:37 AM) CK MB Index [0.0-2.5] <1.7 (06/20/15 10:37 AM) Troponin-I [0.00-0.40 ng/mL] <0.02 ng/mL (06/20/15 10:37 AM) URINE AND STOOL Most recent to oldest [Reference Range]: 1 UA Turbidity [Clear] Clear (06/20/15 11:22 AM) UA Color [Yellow] Yellow *NA* (06/20/15 11:22 AM) UA pH [5.0-8.0] 6.0 (06/20/15 11:22 AM) UA Spec Grav [<=1.030] 1.010 (06/20/15 11:22 AM) UA Glucose [Negative] Negative (06/20/15:22 AM) UA Blood [Negative] Negative (06/20/15 11: AM) UA Ketones [Negative] Negative *NA* (06/20/15 11:22 AM) UA Protein [Negative mg/dL] 30 mg/dL *ABN* (06/20/15 11: AM) UA Urobilinogen [0.1-1.0 EU/dL] 0.2 EU/dL (06/20/15 11:22 AM) UA Bili [Negative] Negative *NA* (06/20/15: AM) UA Leuk Est [Negative] Negative (06/20/15: AM) UA Nitrite [Negative] Negative (06/20/15 11:22 AM) UA WBC [None Seen /HPF] 0-2 /HPF (06/20/15 11:22 AM) UA RBC [0-2 /HPF] 0-2 /HPF (06/20/15 11:22 AM) UA Bacteria [None Seen /HPF] Few /HPF (06/20/15 11:22 AM) UA Sq Epi [Few /LPF] Rare /LPF (06/20/15 11:22 AM) HEMATOLOGY Most recent to oldest [Reference Range]: 1 WBC [3.7-10.4 K/CMM] 11.3 K/CMM *HI* (06/20/15 10:37 AM) RBC [4.70-6.10 M/CMM] 4.46 M/CMM *LOW* (06/20/15 10:37 AM) Hgb [14.0-18.0 g/dL] 12.6 g/dL *LOW* (06/20/15 10:37 AM) Hct [42.0-54.0 %] 39.5 % *LOW* (06/20/15 10:37 AM) MCV [80.0-94.0 fL] 88.6 fL (06/20/15 10:37 AM) MCH [27.0-31.0 pg] 28.3 pg (06/20/15 10:37 AM) MCHC [32.0-36.0 g/dL] 31.9 g/dL *LOW* (06/20/15 10:37 AM) RDW [11.5-14.5 %] 13.4 % (06/20/15 10:37 AM) Platelet [133-450 K/CMM] 321 K/CMM (06/20/15 10:37 AM) MPV [7.4-10.4 fL] 8.5 fL (06/20/15 10:37 AM) Segs [45.0-75.0 %] 73.9 % (06/20/15:37 AM) Lymphocytes [20.0-40.0 %] 13.7 % *LOW* (06/20/15:37 AM) Monocytes [2.0-12.0 %] 10.4 % (06/20/15 10:37 AM) Eosinophils [0.0-4.0 %] 1.4 % (06/20/15 10:37 AM) Basophils [0.0-1.0 %] 0.6 % (06/20/15 10:37 AM) Segs-Bands # [1.5-8.1 K/CMM] 8.3 K/CMM *HI* (06/20/15 10:37 AM) Lymphocytes # [1.0-5.5 K/CMM] 1.5 K/CMM (06/20/15 10:37 AM) Monocytes # [0.0-0.8 K/CMM] 1.2 K/CMM *HI* (06/20/15 10:37 AM) Eosinophils # [0.0-0.5 K/CMM] 0.2 K/CMM (06/20/15 10:37 AM) Basophils # [0.0-0.2 K/CMM] 0.1 K/CMM (06/20/15 10:37 AM) PT [12.0-14.7 seconds] 13.5 seconds (06/20/15 10:37 AM) INR [0.85-1.17] 1.00 (06/20/15 10:37 AM) PTT [22.9-35.8 seconds] 32.0 seconds (06/20/15 10:37 AM) Immunizations No data available for this [...]
--- OUTSIDE RECORDS SUMMARY | 2018-04-09 18:46 | XMS REPORT ---
:1955 Author Organization [facility] Address [address] [place] [address] Dr. Trevino [address] [place] [id number] Care Team Providers Name Role Phone Unavailable Unavailable Unavailable Problems This patient has no known problems. Allergies, Adverse Reactions, Alerts This patient has no known allergies or adverse reactions. Medications This patient has no known medications.
--- NOTE | 2018-04-09 20:09 | RAD REPORT ---
EXAM DESCRIPTION: RAD - Lumbar Spine 3 Views - 04/09/2018 7:36 pm CLINICAL HISTORY: Back pain COMPARISON: None. FINDINGS: A three-view lumbar spine examination was performed. Lumbar bodies are normal in height an d alignment. No fracture or acute bony process seen. No significant disc space narrowing. Mild endpla te spurs seen at multiple levels. Mild facet degenerative change at L4-5 and L5-S1. No pars defects i dentified. Patient has extensive aortoiliac endovascular stenting. IMPRESSION: Scattered lumbar spine degenerative change as detailed. No fracture or acute finding.
[2018-04-09 21:50] LABS: Absolute Lymphocytes (CBC) 2.2 K/uL (0.7-4.9); Absolute Monocytes 0.6 K/uL (0.1-1.3); Absolute Neutrophil 6.3 K/uL (1.8-8.0); Basophils % 0.7 % (0-1.3); Eosinophils % 3.1 % (0-4.4); Hematocrit 41.3 % (39.6-49.0); Lymphocytes % 23.2 % (15.3-44.8); Monocytes % 6.6 % (3.3-12.3); RBC Red Blood Cell Count 4.72 M/uL (4.33-5.43)
[2018-04-09 21:55] LABS: Protime INR 1.01
[2018-04-09] MEDS ORDERED: ONDANSETRON 4 MG/2 ML VIAL ONE (21:55)
[2018-04-09] MEDS ORDERED: FENTANYL CITR 100 MCG/2 ML ONE (21:55)
[2018-04-09 22:10] LABS: ALT/SGPT 9 U/L (12-78); AST/SGOT 10 U/L (15-37); Albumin 3.5 g/dL (3.4-5.0); Alkaline Phosphatase 68 U/L (45-117); BUN Blood Urea Nitrogen 39 mg/dL (7-18); Bicarbonate 27 mmol/L (21-32); Bilirubin Direct 0.1 mg/dL (0-0.2); Bilirubin Total 0.3 mg/dL (0.2-1.0); Glucose Level 101 mg/dL (74-106); Potassium 4.3 mmol/L (3.5-5.1); Protein, Total 7.8 g/dL (6.4-8.2); Sodium Level 143 mmol/L (136-145); Troponin (Emerg Dept Use Only) < 0.02 ng/mL (0.0-0.045)
[2018-04-09] MEDS ORDERED: METRONIDAZOLE 500mg IVPB 500 MG/100 ML BAG IV ONE (23:44)
[2018-04-09] MEDS ORDERED: CEFTRIAXONE/SWI 1gm 2 GM/20 ML SYR ONE (23:44)
[2018-04-09 23:49] LABS: Urine Blood TRACE (NEG); Urine Glucose NEGATIVE (NEG); Urine Protein 2+ (NEG); Urine Specific Gravity 1.015 (1.005-1.030)
[2018-04-09 23:51] LABS: Urine Bacteria <20 /HPF (NONE SEEN); Urine Culture Reflex Order NOT NEEDED; Urine RBC <5 /HPF (NONE SEEN)
--- NOTE | 2018-04-10 00:59 | EDPHYS ---
Physician Documentation [facility] Name: Stan Jimenes Age: 62 yrs Sex: Male : 1955 Arrival Date: 04/09/2018 Time: 18:45 Bed 20 Private MD: out of town, doctor ED Physician Segundo Up HPI: 04/09 22:35 This 62 yrs old Male presents to ER via Ambulatory with complaints of Back wa Pain. 22:35 The patient presents with pain that is acute, with no known mechanism of injury. The wa symptoms are located in the thoracic area, lumbar area and sacrum. Onset: The symptoms/episode began/occurred 4 day(s) ago. The pain does not radiate. Associated signs and symptoms: Pertinent negatives: abdominal pain, chest pain, dysuria, fever, hematuria, incontinence, nausea, numbness, tingling, urinary retention, vomiting, weakness. The problem was sustained from unknown cause, states pain feels similar to when he had his aneurysm repaired in 2016. denies trauma. worse with walking or movement. denies CP, dizziness, SOB, abd pain. . Modifying factors: The patient symptoms are alleviated by nothing, the patient symptoms are aggravated by bending, movement, walking. Severity of symptoms: At their worst the symptoms were moderate, in the emergency department the symptoms are actually worse, moderately. The patient has experienced a previous episode, as noted, had aneurysm that was repaired in 2016. The patient has not recently seen a physician. Historical: - Allergies: 18:50 No Known Allergies; sv - PMHx: 18:50 Aneurysm; COPD; Diabetes - NIDDM; High Cholesterol; Hypertension; POLYCYSTIC KIDNEY sv DISEASE; - PSHx: 18:50 AAA repair; missing rib on L; sv - Immunization history:: Adult Immunizations up to date. - Social history:: Smoking status: Patient/guardian denies using tobacco. - Ebola Screening: : No symptoms or risks identified at this time. - Family history:: not pertinent. - Hospitalizations: : No recent hospitalization is reported. ROS: 22:38 Constitutional: Negative for fever, chills, and weight loss, Eyes: Negative for injury, wa pain, redness, and discharge, ENT: Negative for injury, pain, and discharge, Neck: Negative for injury, pain, and swelling, Cardiovascular: Negative for chest pain, palpitations, and edema, Respiratory: Negative for shortness of breath, cough, wheezing, and pleuritic chest pain, Abdomen/GI: Negative for abdominal pain, nausea, vomiting, diarrhea, and constipation, : Negative for injury, bleeding, discharge, and swelling, MS/Extremity: Negative for injury and deformity, Skin: Negative for injury, rash, and discoloration, Neuro: Negative for headache, weakness, numbness, tingling, and seizure, Psych: Negative for depression, anxiety, suicide ideation, homicidal ideation, and hallucinations. 22:38 Back: Positive for pain at rest, pain with movement, Negative for injury or acute deformity, radiated pain. 22:38 All other systems are negative. Exam: 22:38 Constitutional: This is a well developed, well nourished patient who is awake, alert, wa and in no acute distress. Head/Face: Normocephalic, atraumatic. Eyes: Pupils equal round and reactive to light, extra-ocular motions intact. Lids and lashes normal. Conjunctiva and sclera are non-icteric and not injected. Cornea within normal limits. Periorbital areas with no swelling, redness, or edema. ENT: Nares patent. No nasal discharge, no septal abnormalities noted. Tympanic membranes are normal and external auditory canals are clear. Oropharynx with no redness, swelling, or masses, exudates, or evidence of obstruction, uvula midline. Mucous membranes moist. Neck: Trachea midline, no thyromegaly or masses palpated, and no cervical lymphadenopathy. Supple, full range of motion without nuchal rigidity, or vertebral point tenderness. No Meningismus. Chest/axilla: Normal chest wall appearance and motion. Nontender with no deformity. No lesions are appreciated. Cardiovascular: Regular rate and rhythm with a normal S1 and S2. No gallops, murmurs, or rubs. Normal PMI, no JVD. No pulse deficits. Respiratory: Lungs have equal breath sounds bilaterally, clear to auscultation and percussion. No rales, rhonchi or wheezes noted. No increased work of breathing, no retractions or nasal flaring. Male : Normal genitalia with no discharge or lesions. Skin: Warm, dry with normal turgor. Normal color with no rashes, no lesions, and no evidence of cellulitis. MS/ Extremity: Pulses equal, no cyanosis. Neurovascular intact. Full, normal range of motion. Neuro: Awake and alert, GCS 15, oriented to person, place, time, and situation. Cranial nerves II-XII grossly intact. Motor strength 5/5 in all extremities. Sensory grossly intact. Cerebellar exam normal. Normal gait. Psych: Awake, alert, with orientation to person, place and time. Behavior, mood, and affect are within normal limits. 22:38 Constitutional: The patient appears alert, noted discomfort due to pain 22:38 Abdomen/GI: Inspection: abdomen appears normal, Bowel sounds: normal, in all quadrants, Palpation: abdomen is soft and non-tender, in all quadrants. 22:38 Back: pain, that is moderate, ROM is painful, normal spinal alignment noted, non-tender to palpation however. Vital Signs: 18:50 BP 152 / 87; Pulse 67; Resp 20; Temp 97.4; Pulse Ox 99% ; Weight 116.57 kg; Height 6 sv ft. 2 in. (187.96 cm); Pain 8/10; 20:33 BP 129 / 68; Pulse 61; Resp 18; Pulse Ox 96% ; ea 21:00 BP 129 / 68; Pulse 59; Resp 18; Pulse Ox 97% on R/A; ea 23:26 BP 131 / 68; Pulse 65; Resp 18; Pulse Ox 97% ; ea 04/10 00:06 BP 132 / 66; Pulse 60; Resp 18; Pulse Ox 95% on R/A; ea 04/09 18:50 Body Mass Index 33.00 (116.57 kg, 187.96 cm) sv MDM: 04/09 20:52 Patient medically screened. nh 22:40 Differential diagnosis: back pain. non-tender. concern for aneurysmal leak. will eval. wa 23:35 Data reviewed: vital signs, nurses notes, lab test result(s), EKG, radiologic studies. nh Test interpretation: by ED physician or midlevel provider: EKG: HR 58. sinus prem with 1st deg AV block. noted PVCs. . 23:36 Test interpretation: by ED physician or midlevel provider: elevated BUN/Cr with GFR of wa 13. CT abd/pelvis: mild diverticulitis. no obvious aneurysmal leak. noted polycystic kidneys. CXR: no acute process. Lumbar x-rays: DJD. no acute process. Response to treatment: the patient's symptoms have markedly improved after treatment. Special discussion: pt and already aware of kidney disease. they advise GFR 14 on visit with kidney doctor 2 days ago. will not admit here as already getting follow up. abd for mild diverticulitis. plan to d/c home if can ambulate adequately with minimal pain. otherwise admit for pain control. 04/10 00:56 ED course: pt ambulated well in ED at 0056 hrs. no deficits. will d/c with close f/u. nh pain meds prn. 04/09 21:27 Order name: Basic Metabolic Panel; Complete Time: 23:24 nh 04/09 21:27 Order name: CBC with Diff; Complete Time: 23:24 nh 04/09 21:27 Order name: LFT's; Complete Time: 23:25 nh 04/09 21:27 Order name: PT-INR; Complete Time: 23:25 nh 04/09 21:27 Order name: Troponin (emerg Dept Use Only); Complete Time: 23:24 nh 04/09 21:28 Order name: Type And Screen; Complete Time: 23:24 nh 04/09 18:52 Order name: Lumbar Spine (3 Views) XRAY; Complete Time: 21:26 04/09 21:27 Order name: XRAY Chest (1 view) nh 04/09 21:28 Order name: Urine Microscopic Only; Complete Time: 00:12 nh 04/09 23:43 Order name: Urine Dipstick--Ancillary (enter results); Complete Time: 00:11 ar5 04/10 01:12 Order name: ABO/RH no charge EDMS 04/09 21:27 Order name: EKG; Complete Time: 21:28 nh 04/09 21:27 Order name: Cardiac monitoring; Complete Time: 22:19 nh 04/09 21:27 Order name: EKG - Nurse/Tech; Complete Time: 21:50 nh 04/09 21:27 Order name: IV Saline Lock; Complete Time: 21:50 nh 04/09 21:27 Order name: Labs collected and sent; Complete Time: 21:50 nh 04/09 21:27 Order name: O2 Sat Monitoring; Complete Time: 21:50 nh 04/09 21:28 Order name: Urine Dipstick-Ancillary (obtain specimen); Complete Time: 23:29 nh 04/09 22:23 Order name: Aorta Ivc Iliacs Complete EDMS 04/09 22:23 Order name: Chest Abd Pelvis Wo Con EDMS Administered Medications: 04/09 21:50 Drug: fentaNYL (PF) 50 mcg Route: IVP; Site: right antecubital; ea 22:55 Follow up: Response: No adverse reaction; Pain is decreased ea 21:50 Drug: Zofran 4 mg Route: IVP; Site: right antecubital; ea 22:55 Follow up: Response: No adverse reaction; Marked relief of symptoms ea 23:35 Drug: Rocephin - (cefTRIAXone) 2 grams Route: IVPB; Infused Over: 30 mins; Site: right ea antecubital; 04/10 00:00 Follow up: Response: No adverse reaction; IV Status: Completed infusion ea 04/09 23:40 Drug: Flagyl 500 mg Volume: 100 ml; Route: IVPB; Rate: 200 ml/hr; Infused Over: 30 ea mins; Site: right antecubital; 04/10 01:00 Follow up: Response: No adverse reaction; IV Status: Completed infusion; IV Intake: 50mlea 01:05 Drug: Upperco 5 mg-325 mg 1 tabs Route: PO; ea 01:15 Follow up: Response: Medication administered at discharge. ea 01:05 Drug: Zofran 4 mg Route: IVP; Site: right antecubital; ea 01:14 Follow up: Response: Medication administered at discharge. ea Disposition: 04/10/18 00:58 Discharged to Home. Impression: Acute back Pain, Severe Renal Insufficiency, Acute Diverticulitis. - Condition is Stable. - Prescriptions for Flagyl 500 mg Oral Tablet - take 1 tablet by ORAL route every 8 hours for 10 days; 30 tablet. Upperco 5- 325 mg Oral Tablet - take 1 tablet by ORAL route every 6 hours As needed; 20 tablet. Zofran 4 mg Oral Tablet - take 1 tablet by ORAL route every 12 hours As needed; 20 tablet. - Medication Reconciliation Form, Thank You Letter, Antibiotic Education, Prescription Opioid Use form. - Follow up: Private Physician; When: 1 - 2 days; Reason: Recheck today's complaints. - Problem is new. - Symptoms have improved. - Notes: take medication as prescribed. see your doctor within the next business day for further evaluation. return here immediately for rapidly worsening concerns Signatures: [facility] E[facility]Z Naima Manning, RN Catalina Contreras, RN Segundo Jeffries ea, MD MD wa Corrections: (The following items were deleted from the chart) 04/09 22:17 22:14 Aorta Ivc Iliacs Complete+US.RAD.BRZ ordered. EDAZ EDAZ :23 21:30 Chest Abdomen Pelvis W Con+CT.RAD.BRZ ordered. EDAZ EDAZ 22:17 AAA Screening ordered. [facility] 04/10 01:17 00:58 04/10/2018 00:58 Discharged to Home. Impression: Acute back Pain; Severe Renal ea Insufficiency; Acute Diverticulitis. Condition is Stable. Forms are Medication Reconciliation Form, Thank You Letter, Antibiotic Education, Prescription Opioid Use. Follow up: Private Physician; When: 1 - 2 days; Reason: Recheck today's complaints. Problem is new. Symptoms have improved. lucho
--- NOTE | 2018-04-10 00:59 | ER ---
Nurse's Notes [facility] Name: Stan Jimenes Age: 62 yrs Sex: Male : 1955 Arrival Date: 04/09/2018 Time: 18:45 Bed 20 Private MD: out of town, doctor Diagnosis: Acute back Pain;Severe Renal Insufficiency;Acute Diverticulitis Presentation: 04/09 18:49 Presenting complaint: Patient states: low back pain x 4 days. Denies injury or lifting sv anything heavy. Transition of care: patient was not received from another setting of care. Onset of symptoms was April 05, 2018. Care prior to arrival: Medication(s) given: Tylenol #4 taken at 1200. 18:49 Method Of Arrival: Ambulatory sv 18:49 Acuity: CHAVA 4 sv 21:00 Risk Assessment: Do you want to hurt yourself or someone else? Patient reports no ea desire to harm self or others. Initial Sepsis Screen: Does the patient meet any 2 criteria? No. Patient's initial sepsis screen is negative. Does the patient have a suspected source of infection? No. Patient's initial sepsis screen is negative. Triage Assessment: 18:51 General: Appears in no apparent distress. uncomfortable, Behavior is calm, cooperative, sv appropriate for age. Pain: Complains of pain in low back area Pain currently is 8 out of 10 on a pain scale. Neuro: Level of Consciousness is awake, alert, obeys commands, Oriented to person, place, time, situation, Gait is steady, Speech is normal. Respiratory: Respiratory effort is even, unlabored, Respiratory pattern is regular, symmetrical. Musculoskeletal: Range of motion: intact in all extremities. Historical: - Allergies: 18:50 No Known Allergies; sv - PMHx: 18:50 Aneurysm; COPD; Diabetes - NIDDM; High Cholesterol; Hypertension; POLYCYSTIC KIDNEY sv DISEASE; - PSHx: 18:50 AAA repair; missing rib on L; sv - Immunization history:: Adult Immunizations up to date. - Social history:: Smoking status: Patient/guardian denies using tobacco. - Ebola Screening: : No symptoms or risks identified at this time. - Family history:: not pertinent. - Hospitalizations: : No recent hospitalization is reported. Screenin:35 Abuse screen: Denies threats or abuse. Nutritional screening: No deficits noted. ea Tuberculosis screening: No symptoms or risk factors identified. Fall Risk None identified. Assessment: 20:35 General: Appears uncomfortable, Behavior is calm, cooperative, appropriate for age. ea Pain: Complains of pain in low back area Pain currently is 9 out of 10 on a pain scale. Quality of pain is described as aching, Pain began 2-3 days ago. Is continuous. Neuro: Level of Consciousness is awake, alert, obeys commands, Oriented to person, place, time. Cardiovascular: Patient's skin is warm and dry. Respiratory: Airway is patent Respiratory effort is even, unlabored, Respiratory pattern is regular, symmetrical. Derm: Skin is pink, warm \T\ dry. Musculoskeletal: Circulation, motion, and sensation intact. 22:22 Reassessment: Patient and/or family updated on plan of care and expected duration. Pain ea level reassessed. Pt taken to CT. 22:55 Reassessment: Patient and/or family updated on plan of care and expected duration. Pain ea level reassessed. Pt returned from CT. 23:26 Reassessment: Patient and/or family updated on plan of care and expected duration. Pain ea level reassessed. Patient is alert, oriented x 3, equal unlabored respirations, skin warm/dry/pink. 04/10 00:04 Reassessment: Patient and/or family updated on plan of care and expected duration. Pain ea level reassessed. Patient is alert, oriented x 3, equal unlabored respirations, skin warm/dry/pink. 01:16 Reassessment: Patient and/or family updated on plan of care and expected duration. Pain ea level reassessed. Patient is alert, oriented x 3, equal unlabored respirations, skin warm/dry/pink. Discharge instructions given to patient, verbalized the understanding of instructions. Patient states feeling better. Patient states symptoms have improved. Vital Signs: 04/09 18:50 BP 152 / 87; Pulse 67; Resp 20; Temp 97.4; Pulse Ox 99% ; Weight 116.57 kg; Height 6 sv ft. 2 in. (187.96 cm); Pain 8/10; 20:33 BP 129 / 68; Pulse 61; Resp 18; Pulse Ox 96% ; ea 21:00 BP 129 / 68; Pulse 59; Resp 18; Pulse Ox 97% on R/A; ea 23:26 BP 131 / 68; Pulse 65; Resp 18; Pulse Ox 97% ; ea 04/10 00:06 BP 132 / 66; Pulse 60; Resp 18; Pulse Ox 95% on R/A; ea 04/09 18:50 Body Mass Index 33.00 (116.57 kg, 187.96 cm) sv ED Course: 02 18:45 Patient arrived in ED. sb2 18:45 out of town, doctor is Private Physician. sb2 18:49 Triage completed. sv 18:51 Arm band placed on. sv 19:31 X-ray completed. Patient tolerated procedure well. Patient moved back from radiology. az 19:32 Lumbar Spine (3 Views) XRAY In Process Unspecified. EDMS 20:21 Catalina Worley, MONA is Primary Nurse. ea 20:35 Patient has correct armband on for positive identification. Bed in low position. Call ea light in reach. Side rails up X 1. 20:52 Segundo Up MD is Attending Physician. wa 21:34 Radiology exam delayed due to lab results not completed at this time. (BUN/Creatinine). vr 21:40 Inserted saline lock: 20 gauge in right antecubital area, using aseptic technique. ea Blood collected. 21:58 XRAY Chest (1 view) In Process Unspecified. EDMS 22:23 CT completed. Patient tolerated procedure well. Patient taken to ultrasound. vm2 22:37 Chest Abd Pelvis Wo Con In Process Unspecified. EDMS 22:51 Aorta Ivc Iliacs Complete In Process Unspecified. EDMS 02 01:15 No provider procedures requiring assistance completed. IV discontinued, intact, ea bleeding controlled, No redness/swelling at site. Pressure dressing applied. Administered Medications: 04/09 21:50 Drug: fentaNYL (PF) 50 mcg Route: IVP; Site: right antecubital; ea 22:55 Follow up: Response: No adverse reaction; Pain is decreased ea 21:50 Drug: Zofran 4 mg Route: IVP; Site: right antecubital; ea 22:55 Follow up: Response: No adverse reaction; Marked relief of symptoms ea 23:35 Drug: Rocephin - (cefTRIAXone) 2 grams Route: IVPB; Infused Over: 30 mins; Site: right ea antecubital; 04/10 00:00 Follow up: Response: No adverse reaction; IV Status: Completed infusion ea 04/09 23:40 Drug: Flagyl 500 mg Volume: 100 ml; Route: IVPB; Rate: 200 ml/hr; Infused Over: 30 ea mins; Site: right antecubital; 04/10 01:00 Follow up: Response: No adverse reaction; IV Status: Completed infusion; IV Intake: 50mlea 01:05 Drug: [place] 5 mg-325 mg 1 tabs Route: PO; ea 01:15 Follow up: Response: Medication administered at discharge. ea 01:05 Drug: Zofran 4 mg Route: IVP; Site: right antecubital; ea 01:14 Follow up: Response: Medication administered at discharge. ea Intake: 01:00 IV: 50ml; Total: 50ml. ea Outcome: 00:58 Discharge ordered by . lucho 01:16 Discharged to home ambulatory. violetta 01:16 Condition: improved 01:16 Discharge instructions given to patient, Instructed on discharge instructions, follow up and referral plans. medication usage, Demonstrated understanding of instructions, follow-up care, medications, Prescriptions given X 3. 01:17 Patient left the ED. ea Signatures: Dispatcher [employer] EDMS Naima Manning RN Dahlia Del Rosario Victoria vm2 Antunez, Elena, RN RN ea Appiah, William, MD MD wa Billeau, Sheri sb2 Zavala, Araceli az Corrections: (The following items were deleted from the chart) 04/09 18:53 18:50 Resp 20bpm; Temp 97.4F; 116.57 kg; Height 6 ft. 2 in.; BMI: 33.0; Pain 8/10; sv sv 19:00 18:49 Presenting complaint: Patient states: low back pain x 4 days. sv sv
[2018-04-10] MEDS ORDERED: HYDROCODONE/APAP 5/325 MG TAB ONE (01:14)
[2018-04-10] MEDS ORDERED: ONDANSETRON 4 MG/2 ML VIAL ONE (01:15)
[2018-04-10 04:03] VITALS: TEMP 97.4
[2018-04-10 04:07] VITALS: BP 132/66; O2SAT 95
--- NOTE | 2018-04-10 06:34 | EKG ---
Test Date: 2018-04-09 Test Time: 21:41:46 Skip Miner Blasting: ISAAC MEASUREMENT RESULTS: Intervals: Rate: 58 AK: 226 QRSD: 72 QT: 410 QTc: 402 [place]: P: 100 AK: 226 QRS: -1 T: 28 INTERPRETIVE STATEMENTS: Sinus bradycardia with 1st degree AV block with occasional premature ventricular complexes Anteroseptal infarct, age undetermined Abnormal ECG Compared to ECG 02/09/2018 14:02:12 Ventricular premature complex(es) now present First degree AV block now present Myocardial infarct finding now present Sinus rhythm no longer present Electronically Signed On 04-10-18 06:26:10 MRI SPECIAL PROCEDURES TECHNOLOGIST by Shree Parks
--- NOTE | 2018-04-10 09:08 | RAD REPORT ---
EXAM DESCRIPTION: Carlos Single View04/09/2018 9:59 pm CLINICAL HISTORY: Chest pain COMPARISON: March 2018 FINDINGS: The lungs appear clear of acute infiltrate. The heart is normal size IMPRESSION: No acute abnormalities displayed
--- NOTE | 2018-04-10 09:42 | RAD REPORT ---
EXAM DESCRIPTION: US - Aorta Ivc Iliacs Complete - 04/09/2018 10:50 pm CLINICAL HISTORY: Abdominal pain/back pain COMPARISON: April 09, 2018 CT FINDINGS: The proximal abdominal aorta has an AP diameter 2.8 centimeters. Mid abdominal aorta has A P diameter 2.5 centimeters. An aorto bi-iliac stent has been placed into an abdominal aortic aneurysm . AP diameter of the aneurysm is approximately 3.9 centimeters. Proximal aspect of the stent is near the level of the renal arteries. Flow is present within the sten t. Flow is present within the proximal common iliac arteries. No gross abnormality of the IVC IMPRESSION: Aorto bi-iliac stent has been placed into an abdominal aortic aneurysm. The stent is pat ent
--- NOTE | 2018-04-12 20:46 | RAD REPORT ---
EXAM DESCRIPTION: CT - Chest Abd Pelvis Wo Con - 04/10/2018 3:24 am CLINICAL HISTORY: The patient is 62 years old and is Male; back pain. H/o AAA repair, r/o aneurysmal leak. TECHNIQUE: Axial computed tomography images of the abdomen and pelvis without intravenous contrast. Sagittal and coronal reformatted images were created and reviewed. This CT exam was performed using o ne or more of the following dose reduction techniques: Automated exposure control, adjustment of the mA and/or kV according to patient size, and/or use of iterative reconstruction technique. COMPARISON: None. FINDINGS: CHEST: LUNGS: Fat containing rounded 1.5 x 1.4 cm right lower lobe nodule, likely hamartoma. Mild atelectasis in the right middle lobe. No focal consolidation, pleural effusion or pneumothorax. PLEURAL SPACE: No focal consolidation, pleural effusion or pneumothorax. HEART: Unremarkable. No cardiomegaly. No significant pericardial effusion. ABDOMEN: LIVER: Multiple well demarcated hepatic hypodensities with attenuation values compatible with simple fluid compatible with cysts. GALLBLADDER AND BILE DUCTS: Unremarkable. No calcified stones. No ductal dilation. PANCREAS: Unremarkable. No ductal dilation. SPLEEN: Unremarkable. No splenomegaly. ADRENALS: Unremarkable. No mass. KIDNEYS AND URETERS: Innumerable hypointense and hyperintense bilateral renal cysts are present. Ther e is limited evaluation for residual normal renal parenchyma. No obstructing stones. No hydronephrosis. STOMACH AND BOWEL: Colonic diverticulosis involving predominately the sigmoid colon with mild peridiv erticular stranding just superior to the urinary bladder. No obstruction. No mucosal thickening. PELVIS: APPENDIX: The appendix is seen and is within normal limits. BLADDER: Unremarkable. No stones. REPRODUCTIVE: The dilatation is enlargement of the prostate. CHEST, ABDOMEN and PELVIS: INTRAPERITONEAL SPACE: Unremarkable. No significant fluid collection. No free air. BONE/JOINTS: Mild dextroscoliosis of the lumbar spine. No acute fracture. No dislocation. SOFT TISSUES: Small fat-containing periumbilical hernia with mild fat stranding. Postsurgical changes of the left inguinal region. VASCULATURE: Evidence of prior TVAR Abdominal aortic caliber measuring 3.6 cm. Mild atherosclerotic calcifications. No aortic aneurysm. LYMPH NODES:Unremarkable. No enlarged lymph nodes. IMPRESSION: 1. Sigmoid diverticulosis with mild periventricular stranding concerning for mild acute diverticulitis. No perforation or fluid collection. 2. Innumerable hyperdense and hypodense bilateral renal cysts and scattered hepatic cysts most sugges tive of autosomal dominant polycystic kidney disease. Nuclear medicine triple renal scan may be of di agnostic use. 3. Fat-containing rounded 1.5 x 1.4 cm right lower lobe nodule, likely a hamartoma. 4. Evidence of prior TVAR, abdominal aortic caliber measuring 3.6 cm recommend annual follow-up. Reference: J Vasc Surg 2009 Oct;50(4 Suppl); S2-49. 5. Small fat-containing periumbilical hernia with mild fat stranding. Electronically signed by: Santosh Bowman DO 04/09/2018 10:49 PM CARD DOFFER Due to temporary technical issues with the PACS/Fluency reporting system, reports are being signed by the in house radiologist as a courtesy to ensure prompt reporting. The interpreting radiologist is f ully responsible for the content of the report.
== END 2018-04-10 01:17 | disposition home or self-care (01) ==
LOC: ER 18:42
DX: K57.92 Diverticulitis of intestine, part unspecified, without perforation or abscess without bleeding (principal); N28.9 Disorder of kidney and ureter, unspecified; Q61.3 Polycystic kidney, unspecified; I10 Essential (primary) hypertension
CPT/HCPCS: 36415; 71045; 71250; 72100; 74176; 80048; 80076; 84484; 85025; 85610; 86850; 86900; 86901; 93005; 93978; 96365; 96368; 96375; 99284; J0696; J2405 ×2; J3010; 81003; 81015

== ENCOUNTER 2018-11-24 13:47 | Emergency (ER) | payer OTHER ==
[2018-11-24 14:22] LABS: Absolute Lymphocytes (CBC) 1.7 K/uL (0.7-4.9); Basophils % 0.9 % (0-1.3); Hematocrit 33.7 % (39.6-49.0); Lymphocytes % 21.1 % (15.3-44.8); MPV 8.9 fL (7.6-11.3); RBC Red Blood Cell Count 3.84 M/uL (4.33-5.43)
[2018-11-24 14:43] LABS: Albumin 3.6 g/dL (3.4-5.0); Bilirubin Direct 0.1 mg/dL (0-0.2); Bilirubin Total 0.4 mg/dL (0.2-1.0); Potassium 3.8 mmol/L (3.5-5.1); Protein, Total 7.8 g/dL (6.4-8.2)
[2018-11-24] MEDS ORDERED: MORPHINE 4 MG/ML SYR ONE ×2 (14:53→16:20)
[2018-11-24] MEDS ORDERED: ONDANSETRON 4 MG/2 ML VIAL ONE (14:53)
--- NOTE | 2018-11-24 15:22 | RAD REPORT ---
EXAM DESCRIPTION: CT - Abdomen Pelvis Wo Contrast - 11/24/2018 2:59 pm CLINICAL HISTORY: Left flank pain COMPARISON: 2018 TECHNIQUE: Computed axial tomography of the abdomen and pelvis was obtained. IV and oral contrast we re not requested. All CT scans are performed using dose optimization technique as appropriate and may include automated exposure control or mA/KV adjustment according to patient size. FINDINGS: The evaluation of solid organs, vessels and bowel is limited secondary to the lack of con trast administration. A 15 millimeter right lower lobe nodule containing fat is unchanged and benign Stable hepatic cysts The spleen, adrenals and pancreas grossly normal Polycystic kidneys without significant change. No hemorrhage within any of the cysts. No hydronephros is. An aorto iliac stent in place The appendix is normal. There is no evidence of diverticulitis. Mild enlargement of the prostate gland . . Tiny umbilical hernia IMPRESSION: No acute abnormality is displayed.
--- NOTE | 2018-11-24 17:09 | ER ---
Nurse's Notes [facility] Name: Stan Jimenes Age: 63 yrs Sex: Male : 1955 Arrival Date: 11/24/2018 Time: 13:49 Bed 24 Private MD: Ned Velasquez Diagnosis: Left flank pain, Musculoskeletal Pain Presentation: 11/24 13:54 Presenting complaint: Patient states: on the LEFT low back it starts hurting and it tw2 radiates around to the from in my stomach area, i have polycystic kidneys, it really started last night. Transition of care: patient was not received from another setting of care. Onset of symptoms was November 24, 2018. Risk Assessment: Do you want to hurt yourself or someone else? Patient reports no desire to harm self or others. Initial Sepsis Screen: Does the patient meet any 2 criteria? No. Patient's initial sepsis screen is negative. Does the patient have a suspected source of infection? No. Patient's initial sepsis screen is negative. Care prior to arrival: None. 13:54 Method Of Arrival: Ambulatory tw2 13:54 Acuity: CHAVA 3 tw2 Triage Assessment: 13:56 General: Appears uncomfortable, Behavior is calm, cooperative, appropriate for age. tw2 Pain: Complains of pain in left low back and left mid back Pain radiates to abdomen. GI: Patient currently denies diarrhea, nausea, vomiting. Historical: - Allergies: 13:56 No Known Allergies; tw2 - PMHx: 13:56 POLYCYSTIC KIDNEY DISEASE; Hypertension; High Cholesterol; Diabetes - NIDDM; Aneurysm; tw2 COPD; - PSHx: 13:56 AAA repair; missing rib on L; tw2 - Immunization history:: Adult Immunizations. - Social history:: Smoking status: . - Ebola Screening: : Patient denies travel to an Ebola-affected area in the 21 days before illness onset. Screenin:00 Abuse screen: Denies threats or abuse. Denies injuries from another. Nutritional ca1 screening: No deficits noted. Tuberculosis screening: No symptoms or risk factors identified. Fall Risk None identified. Assessment: 14:00 General: Appears in no apparent distress. comfortable, Behavior is calm, cooperative, ca1 appropriate for age. Pain: Complains of pain in left mid back and left low back Pain radiates to abdomen Pain currently is 10 out of 10 on a pain scale. Quality of pain is described as sharp, Pain began 1 day ago. Is intermittent. Neuro: Level of Consciousness is awake, alert, obeys commands, Oriented to person, place, time, situation, Appropriate for age. Cardiovascular: Heart tones S1 S2 present Capillary refill < 3 seconds Patient's skin is warm and dry. Respiratory: Airway is patent Respiratory effort is even, unlabored, Respiratory pattern is regular, symmetrical, Breath sounds are clear bilaterally. GI: Abdomen is round non-distended, Bowel sounds present X 4 quads. Abd is soft and non tender X 4 quads. : No deficits noted. No signs and/or symptoms were reported regarding the genitourinary system. EENT: No deficits noted. No signs and/or symptoms were reported regarding the EENT system. Derm: Skin is intact, is healthy with good turgor, Skin is pink, warm \T\ dry. Musculoskeletal: Circulation, motion, and sensation intact. Capillary refill < 3 seconds, Range of motion: intact in all extremities. 15:46 Reassessment: Patient appears in no apparent distress at this time. Patient and/or ca1 family updated on plan of care and expected duration. Pain level reassessed. Patient is alert, oriented x 3, equal unlabored respirations, skin warm/dry/pink. Patient states feeling better. 16:15 Reassessment: Patient appears in no apparent distress at this time. Patient is alert, ca1 oriented x 3, equal unlabored respirations, skin warm/dry/pink. Pt pain came back as reported by pt. PS 10. Notified provider. 17:21 Reassessment: patient appears to be more comfortable at this time. Dr Hanley explained rv the results of diagnostics and plan of care. discharged patient via wheelchair with family. patient agreed with the doctor's explanation. Vital Signs: 13:55 BP 128 / 73; Pulse 55; Resp 17; Temp 97.8(O); Pulse Ox 98% on R/A; Weight 117.93 kg tw2 (R); Height 6 ft. 2 in. (187.96 cm) (R); Pain 10/10; 14:29 BP 123 / 60; Pulse 50; Resp 15 S; Pulse Ox 99% on R/A; ca1 15:46 BP 114 / 51; Pulse 50; Resp 16 S; Pulse Ox 95% on R/A; Pain 5/10; ca1 16:00 BP 127 / 68; Pulse 53; Pulse Ox 95% on R/A; jp3 17:23 BP 134 / 65; Pulse 61; Resp 16; Pulse Ox 98% on R/A; rv 13:55 Body Mass Index 33.38 (117.93 kg, 187.96 cm) tw2 ED Course: 13:49 Patient arrived in ED. as 13:49 Ned Velasquez MD is Private Physician. as 13:50 Turner Hanley MD is Attending Physician. kdr 13:55 Triage completed. tw2 13:55 Arm band placed on. tw2 13:58 Tasha Perez, MONA is Primary Nurse. ca1 14:00 Patient has correct armband on for positive identification. Placed in gown. Bed in low ca1 position. Call light in reach. Side rails up X 1. Pulse ox on. NIBP on. Warm blanket given. 14:00 No provider procedures requiring assistance completed. ca1 14:09 Inserted saline lock: 20 gauge in right antecubital area, using aseptic technique. ca1 Blood collected. 14:09 Initial lab(s) drawn, by me, sent to lab. ca1 14:09 Urine collected: clean catch specimen, clear, myra colored. jp3 15:03 Abdomen In Process Unspecified. EDMS 17:07 Ned Velasquez MD is Referral Physician. kdr 17:23 IV discontinued, intact, bleeding controlled, No redness/swelling at site. Pressure rv dressing applied. Administered Medications: 14:50 Drug: Zofran 4 mg Route: IVP; Site: right antecubital; ca1 15:47 Follow up: Response: No adverse reaction; Nausea is decreased ca1 14:55 Drug: morphine 4 mg {Note: RASS - 0.} Route: IVP; Site: right antecubital; ca1 15:47 Follow up: Response: No adverse reaction; Pain is decreased; RASS: Alert and Calm (0) ca1 16:21 Drug: morphine 4 mg {Note: RASS - 0.} Route: IVP; Site: right antecubital; ca1 17:16 Follow up: Response: Pain is unchanged, physician notified ca1 17:16 Follow up: Response: RASS: Alert and Calm (0) ca1 17:15 Drug: [place] 10 mg-325 mg 1 tabs Route: PO; ca1 17:15 Follow up: Response: Medication administered at discharge. ca1 Outcome: 17:08 Discharge ordered by . kdr 17:23 Discharged to home via wheelchair, with family. rv 17:23 Condition: improved 17:23 Discharge instructions given to patient, family, Instructed on discharge instructions, follow up and referral plans. medication usage, Demonstrated understanding of instructions, follow-up care, medications, Prescriptions given X 2. 17:24 Patient left the ED. rv Signatures: Dispatcher [employer] EDMS Turner Hanley MD MD kdr Alice Pereyra Tara, RN RN tw2 Sanjeev Alfonso RN RN rv Gurdeep Cui 3 Tasha Perez RN RN ca1
--- NOTE | 2018-11-24 17:09 | EDPHYS ---
Physician Documentation [facility] Name: Stan Jimenes Age: 63 yrs Sex: Male : 1955 Arrival Date: 11/24/2018 Time: 13:49 Bed 24 Private MD: Ned Velasquez ED Physician Turner Hanley HPI: 11/24 14:38 This 63 yrs old Male presents to ER via Ambulatory with complaints of Flank kdr Pain. 14:38 The patient complains of pain in the left mid back. Left flank pain since last night. kdr Onset: The symptoms/episode began/occurred suddenly, last night. Modifying factors: The symptoms are alleviated by nothing. the symptoms are aggravated by movement. 16:48 Associated signs and symptoms: Pertinent positives: nausea, Pertinent negatives: kdr vomiting. Severity of pain: At its worst the pain was severe in the emergency department the pain is unchanged. The patient has experienced similar episodes in the past, a few times. The patient has not recently seen a physician. Historical: - Allergies: 13:56 No Known Allergies; tw2 - PMHx: 13:56 POLYCYSTIC KIDNEY DISEASE; Hypertension; High Cholesterol; Diabetes - NIDDM; Aneurysm; tw2 COPD; - PSHx: 13:56 AAA repair; missing rib on L; tw2 - Immunization history:: Adult Immunizations. - Social history:: Smoking status: . - Ebola Screening: : Patient denies travel to an Ebola-affected area in the 21 days before illness onset. ROS: 16:48 Constitutional: Negative for fever, chills, and weight loss, Eyes: Negative for injury, kdr pain, redness, and discharge, Neck: Negative for injury, pain, and swelling, Cardiovascular: Negative for chest pain, palpitations, and edema, Respiratory: Negative for shortness of breath, cough, wheezing, and pleuritic chest pain, : Negative for injury, bleeding, discharge, and swelling, MS/Extremity: Negative for injury and deformity, Skin: Negative for injury, rash, and discoloration, Neuro: Negative for headache, weakness, numbness, tingling, and seizure activity. Psych: Negative for depression, anxiety, suicide ideation, homicidal ideation, and hallucinations, Allergy/Immunology: Negative for hives, rash, and allergies, Endocrine: Negative for neck swelling, polydipsia, polyuria, polyphagia, and marked weight changes, Hematologic/Lymphatic: Negative for swollen nodes, abnormal bleeding, and unusual bruising. 16:48 Abdomen/GI: Positive for abdominal pain, nausea, Left flank pain, Negative for abdominal distension, anorexia, dysphagia, hematemesis, black/tarry stool, rectal pain. Exam: 16:48 Constitutional: This is a well developed, well nourished patient who is awake, alert, kdr and in mild distress. Head/Face: Normocephalic, atraumatic. Eyes: Pupils equal round and reactive to light, extra-ocular motions intact. Lids and lashes normal. Conjunctiva and sclera are non-icteric and not injected. Cornea within normal limits. Periorbital areas with no swelling, redness, or edema. Neck: Trachea midline, no thyromegaly or masses palpated, and no cervical lymphadenopathy. Supple, full range of motion without nuchal rigidity, or vertebral point tenderness. No Meningismus. Chest/axilla: Normal chest wall appearance and motion. Nontender with no deformity. No lesions are appreciated. Cardiovascular: Regular rate and rhythm with a normal S1 and S2. No gallops, murmurs, or rubs. Normal PMI, no JVD. No pulse deficits. Respiratory: Lungs have equal breath sounds bilaterally, clear to auscultation and percussion. No rales, rhonchi or wheezes noted. No increased work of breathing, no retractions or nasal flaring. Abdomen/GI: Soft, non-tender, with normal bowel sounds. No distension or tympany. No guarding or rebound. No evidence of tenderness throughout. Back: No spinal tenderness. No costovertebral tenderness. Full range of motion. Skin: Warm, dry with normal turgor. Normal color with no rashes, no lesions, and no evidence of cellulitis. MS/ Extremity: Pulses equal, no cyanosis. Neurovascular intact. Full, normal range of motion. Neuro: Awake and alert, GCS 15, oriented to person, place, time, and situation. Cranial nerves II-XII grossly intact. Motor strength 5/5 in all extremities. Sensory grossly intact. Cerebellar exam normal. Normal gait. Psych: Awake, alert, with orientation to person, place and time. Behavior, mood, and affect are within normal limits. Vital Signs: 13:55 BP 128 / 73; Pulse 55; Resp 17; Temp 97.8(O); Pulse Ox 98% on R/A; Weight 117.93 kg tw2 (R); Height 6 ft. 2 in. (187.96 cm) (R); Pain 10/10; 14:29 BP 123 / 60; Pulse 50; Resp 15 S; Pulse Ox 99% on R/A; ca1 15:46 BP 114 / 51; Pulse 50; Resp 16 S; Pulse Ox 95% on R/A; Pain 5/10; ca1 16:00 BP 127 / 68; Pulse 53; Pulse Ox 95% on R/A; jp3 17:23 BP 134 / 65; Pulse 61; Resp 16; Pulse Ox 98% on R/A; rv 13:55 Body Mass Index 33.38 (117.93 kg, 187.96 cm) tw2 MDM: 16:48 Data reviewed: vital signs, nurses notes, lab test result(s), radiologic studies. kdr Counseling: I had a detailed discussion with the patient and/or guardian regarding: the historical points, exam findings, and any diagnostic results supporting the discharge/admit diagnosis, lab results, radiology results. 17:08 [facility]. [facility] 11/[facility] 14:08 Order name: Basic Metabolic Panel; Complete Time: 16:15 [facility] 11/24 14:08 Order name: CBC with Diff; Complete Time: 14:37 [facility] 11/24 14:08 Order name: Creatinine for Radiology; Complete Time: 16:15 [facility] 11/24 14:08 Order name: Hepatic Function; Complete Time: 16:15 [facility] 11/24 14:21 Order name: Urine Dipstick--Ancillary (enter results) 11/24 14:08 Order name: IV Saline Lock; Complete [facility]: 14:09 [facility] 11/24 14:08 Order name: Labs collected and sent; Complete Time: 14:09 [facility] 11/24 14:48 Order name: Abdomen ; Complete Time: 16:15 EDMS Administered Medications: 14:50 Drug: Zofran 4 mg Route: IVP; Site: right antecubital; ca1 15:47 Follow up: Response: No adverse reaction; Nausea is decreased ca1 14:55 Drug: morphine 4 mg {Note: RASS - 0.} Route: IVP; Site: right antecubital; ca1 15:47 Follow up: Response: No adverse reaction; Pain is decreased; RASS: Alert and Calm (0) ca1 16:21 Drug: morphine 4 mg {Note: RASS - 0.} Route: IVP; Site: right antecubital; ca1 17:16 Follow up: Response: Pain is unchanged, physician notified ca1 17:16 Follow up: Response: RASS: Alert and Calm (0) ca1 17:15 Drug: Virgie 10 mg-325 mg 1 tabs Route: PO; ca1 17:15 Follow up: Response: Medication administered at discharge. ca1 Disposition: 11/24/18 17:08 Discharged to Home. Impression: Left flank pain, Musculoskeletal Pain. - Condition is Stable. - Discharge Instructions: Musculoskeletal Pain, Flank Pain, [id number]. - Prescriptions for Tylenol- Codeine #3 300-30 mg Oral Tablet - take 2 tablets by ORAL route every 4-6 hours As needed One or two tablets every 4 - 6 hours as needed for pain; 16 tablet. Cyclobenzaprine 10 mg Oral Tablet - take 1 tablet by ORAL route every 8 hours As needed; 30 tablet. - Medication Reconciliation Form, Thank You Letter, Prescription Opioid Use form. - Follow up: Ned Velasquez MD; When: 2 - 3 days; Reason: If symptoms return, Further diagnostic work-up, Recheck today's complaints, Continuance of care, Re-evaluation by your physician. - Problem is new. - Symptoms have improved. Signatures: Dispatcher [employer] [facility] Turner Hanley MD MD kdr Yuko Youssef RN RN tw2 Sanjeev Alfonso RN RN rv Acob, Tasha RN RN ca1 Corrections: (The following items were deleted from the chart) 14:47 14:09 Abdomen Pelvis W Con+CT.RAD.BRZ ordered. [facility] EDSC 17:24 17:08 11/24/2018 17:08 Discharged to Home. Impression: Left flank pain, Musculoskeletal rv Pain. Condition is Stable. Forms are Medication Reconciliation Form, Thank You Letter, Antibiotic Education, Prescription Opioid Use. Follow up: Ned Velasquez; When: 2 - 3 days; Reason: If symptoms return, Further diagnostic work-up, Recheck today's complaints, Continuance of care, Re-evaluation by your physician. Problem is new. Symptoms have improved. kdr
[2018-11-24] MEDS ORDERED: HYDROCODONE/APAP 10/325 TAB ONE (17:13)
[2018-11-24 17:28] LABS: Urine Blood TRACE (NEG); Urine Glucose NEGATIVE (NEG); Urine Protein 2+ (NEG); Urine Specific Gravity 1.015 (1.005-1.030); Urine pH 5.5 (5.0-7.0)
[2018-11-24 18:34] VITALS: TEMP 97.8
[2018-11-24 18:40] VITALS: BP 134/65; O2SAT 98
== END 2018-11-24 17:24 | disposition home or self-care (01) ==
LOC: ER 13:47
DX: M79.18 Myalgia, other site (principal); I10 Essential (primary) hypertension; Q61.3 Polycystic kidney, unspecified
CPT/HCPCS: 85025; 80048; 36415; 80076; 81003; 74176; 96375; 96374; 99284; J2405

== ENCOUNTER 2019-02-26 22:11 | Emergency (ER) | payer OTHER ==
--- OUTSIDE RECORDS SUMMARY | 2019-02-26 22:13 | XMS REPORT ---
:1955 [facility] [address] [place] [address] [place] [id number] Care Team Providers Name Role Phone Unavailable Unavailable Unavailable Problems This patient has no known problems. Allergies, Adverse Reactions, Alerts This patient has no known allergies or adverse reactions. Medications This patient has no known medications. Encounters Start End Encounter Admission Attending Care Care Encounter Date/Time Date/Time Type Type Clinicians Facility Department ID 2018-06-23 Inpatient [facility] [id number] 10:22:21 2018-08-20 2018-08-20 Outpatient [facility] CAR [id number] 08:05:00 08:05:00 2018-07-07 2018-07-07 Outpatient [facility] PUL [id number] 09:33:00 09:33:00 2018-06-23 2018-06-23 Outpatient [facility] [id number] 10:27:00 10:27:00
[2019-02-26] MEDS ORDERED: ONDANSETRON 4 MG/2 ML VIAL ONE (22:40)
[2019-02-26] MEDS ORDERED: MORPHINE 4 MG/ML SYR ONE (22:40)
[2019-02-26 22:49] LABS: Absolute Lymphocytes (CBC) 2.4 K/uL (0.7-4.9); Basophils % 0.9 % (0-1.3); Hematocrit 34.8 % (39.6-49.0); Lymphocytes % 22.7 % (15.3-44.8); MPV 9.3 fL (7.6-11.3); RBC Red Blood Cell Count 3.91 M/uL (4.33-5.43)
[2019-02-26 23:10] LABS: Albumin 2.9 g/dL (3.4-5.0); Bilirubin Direct 0.2 mg/dL (0-0.2); Bilirubin Total 0.4 mg/dL (0.2-1.0); Potassium 3.2 mmol/L (3.5-5.1)
[2019-02-26] MEDS ORDERED: dexAMETHasone 10 MG/ML VIAL ONE (23:51)
[2019-02-26] MEDS ORDERED: MEPERIDINE HCL 50 MG/ML ONE (23:51)
--- NOTE | 2019-02-27 00:59 | ER ---
Nurse's Notes [facility] Name: Stan Jimenes Age: 63 yrs Sex: Male : 1955 Arrival Date: 02/26/2019 Time: 22:15 Bed 19 Private MD: Diagnosis: Low back pain;Radiculopathy, lumbosacral region Presentation: 02/26 22:30 Presenting complaint: Patient states: "I woke up on and I couldn't walk. my jd3 lower back is hurting me so bad it hurts to walk.". Transition of care: patient was not received from another setting of care. Onset of symptoms was February 24, 2019. Risk Assessment: Do you want to hurt yourself or someone else? Patient reports no desire to harm self or others. Initial Sepsis Screen: Does the patient meet any 2 criteria? No. Patient's initial sepsis screen is negative. Does the patient have a suspected source of infection? No. Patient's initial sepsis screen is negative. Care prior to arrival: None. 22:30 Method Of Arrival: Wheelchair jd3 22:30 Acuity: CHAVA 3 jd3 Historical: - Allergies: 22:34 No Known Allergies; jd3 - Home Meds: 22:34 acetaminophen-codeine 300-30 mg Oral tab 2 tabs every 6 hours [Active]; allopurinol 100 jd3 mg Oral tab once daily for Gout [Active]; amlodipine 10 mg tab 1 tab once daily [Active]; aspirin 81 mg Oral TbEC 1 tab once daily [Active]; calcitriol 0.25 mcg Oral cap 1 cap [Active]; carvedilol 6.25 mg Oral tab 1 tab 2 times per day [Active]; esomeprazole magnesium 40 mg Oral cpDR 1 cap once daily [Active]; magnesium oxide 400 mg Oral tab 400 mg daily [Active]; metoprolol tartrate 25 mg Oral tab 1 tab 2 times per day [Active]; ranitidine HCl 150 mg Oral tab 1 tab once daily [Active]; Silenor 6 mg Oral tab 1 tab once daily [Active]; tamsulosin 0.4 mg Oral cp24 1 cap once daily [Active]; tramadol 50 mg Oral tab 1 tab every 8 hours [Active]; - PMHx: 22:34 Aneurysm; Hypertension; High Cholesterol; POLYCYSTIC KIDNEY DISEASE; Diabetes - NIDDM; jd3 COPD; AAA; - PSHx: 22:34 missing rib on L; jd3 - Immunization history:: Adult Immunizations up to date, Flu vaccine is not up to date. - Social history:: Smoking status: Patient/guardian denies using tobacco, but has a distant history of tobacco abuse. - Ebola Screening: : Patient negative for fever greater than or equal to 101.5 degrees Fahrenheit, and additional compatible Ebola Virus Disease symptoms. - Family history:: not pertinent. - Hospitalizations: : No recent hospitalization is reported. Screenin:46 Abuse screen: Denies threats or abuse. Nutritional screening: No deficits noted. jd3 Tuberculosis screening: No symptoms or risk factors identified. Fall Risk Ambulatory Aid- None/Bed Rest/Nurse Assist (0 pts). Gait- Weak (10 pts.). Mental Status- Oriented to own ability (0 pts). Total Godinez Fall Scale indicates No Risk (0-24 pts). Assessment: 22:44 General: Appears in no apparent distress. uncomfortable, Behavior is calm, cooperative, jd3 appropriate for age. Pain: Complains of pain in low back area Quality of pain is described as sharp, shooting, Aggravated by repositioning, weight bearing. Neuro: Level of Consciousness is awake, alert, obeys commands, Oriented to person, place, time, situation. Cardiovascular: Denies chest pain, Capillary refill < 3 seconds Patient's skin is warm and dry. Respiratory: Airway is patent Respiratory effort is even, unlabored, Respiratory pattern is regular, symmetrical, Denies cough, shortness of breath. GI: No signs and/or symptoms were reported involving the gastrointestinal system. Patient currently denies diarrhea, nausea, vomiting. : No signs and/or symptoms were reported regarding the genitourinary system. EENT: No signs and/or symptoms were reported regarding the EENT system. Derm: Skin is intact, Skin is dry, Skin is normal, Skin temperature is warm. Musculoskeletal: Circulation, motion, and sensation intact. Range of motion: intact in all extremities. 23:40 Reassessment: Patient appears in no apparent distress at this time. No changes from jd3 previously documented assessment. Patient and/or family updated on plan of care and expected duration. Pain level reassessed. Patient is alert, oriented x 3, equal unlabored respirations, skin warm/dry/pink. 23:58 Reassessment: pt's oxygen level dropped after medication administration, placed on jd3 Nasal canula at 2 L. oxygen level improved. 02/27 00:54 Reassessment: Patient appears in no apparent distress at this time. Patient and/or jd3 family updated on plan of care and expected duration. Pain level reassessed. Patient is alert, oriented x 3, equal unlabored respirations, skin warm/dry/pink. pt resting in bed awaiting results and disposition from provider. Patient states feeling better. 01:14 Reassessment: Patient appears in no apparent distress at this time. Patient and/or jd3 family updated on plan of care and expected duration. Pain level reassessed. Patient is alert, oriented x 3, equal unlabored respirations, skin warm/dry/pink. pt reported understanding of discharge instructions. assisted pt to vehicle using wheelchair with family. Vital Signs: 02/26 22:35 BP 155 / 93; Pulse 75; Resp 19 S; Temp 98.7(O); Pulse Ox 97% on R/A; Weight 111.13 kg j (R); Height 6 ft. 2 in. (187.96 cm) (R); Pain 10/10; 23:58 Pulse 78; Resp 16 S; Pulse Ox 86% on R/A; d3 02/27 00:00 Pulse Ox 99% on 2 lpm NC; jd3 00:54 Pulse 72; Resp 15 S; Pulse Ox 97% on 2 lpm NC; jd3 02/26 22:35 Body Mass Index 31.46 (111.13 kg, 187.96 cm) [facility] 02/26 23:58 pt placed on nasal canula [facility] ED Course: 22:15 Patient arrived in ED. cf2 22:21 Oleg Wright, RN is Primary Nurse. jd3 22:21 Basil Ya MD is Attending Physician. rn 22:31 Triage completed. jd3 22:35 Arm band placed on. jd3 22:38 Inserted saline lock: 18 gauge in left antecubital area, using aseptic technique. Blood mt collected. 22:46 Patient has correct armband on for positive identification. Bed in low position. Call j light in reach. Side rails up X 1. Adult w/ patient. 23:18 CT completed. Pt tolerated procedure poorly. Patient moved to CT via stretcher. Patient moved back from CT. 23:42 CT Abd/Pelvis - Without Contrast In Process Unspecified. EDMS 02/27 01:13 No provider procedures requiring assistance completed. IV discontinued, intact, jd3 bleeding controlled, No redness/swelling at site. Pressure dressing applied. Administered Medications: 02/26 22:43 Drug: Zofran 4 mg Route: IVP; Site: left antecubital; jd3 23:40 Follow up: Response: No adverse reaction jd3 22:44 Drug: morphine 4 mg Route: IVP; Site: left antecubital; jd3 02/27 01:00 Follow up: Response: No adverse reaction; RASS: Alert and Calm (0) jd3 02/26 23:57 Drug: Demerol 50 mg Route: IVP; Site: left antecubital; jd3 02/27 00:55 Follow up: Response: No adverse reaction; RASS: Alert and Calm (0) jd3 02/26 23:57 Drug: Decadron - Dexamethasone 10 mg Route: IVP; Site: left antecubital; jd3 02/27 00:55 Follow up: Response: No adverse reaction jd3 Outcome: 00:58 Discharge ordered by MD. rn 01:14 Discharged to home via wheelchair, with family. jd3 01:14 Condition: stable 01:14 Discharge instructions given to patient, family, Instructed on discharge instructions, follow up and referral plans. medication usage, Demonstrated understanding of instructions, follow-up care, medications, Prescriptions given X 3. 01:15 Patient left the ED. jd3 Signatures: Dispatcher [employer] [facility] Edmundo Liang Roman, MD MD rn Thompson, Oleg Garcia mt, RN RN jd3 Frazier, Celesta cf2 Corrections: (The following items were deleted from the chart) 00:56 02/26 23:40 Reassessment: Patient appears in no apparent distress at this time. No jd3 changes from previously documented assessment. Patient and/or family updated on plan of care and expected duration. Pain level reassessed. Patient is alert, oriented x 3, equal unlabored respirations, skin warm/dry/pink. jd3 02/27 00:59 00:54 Reassessment: Patient appears in no apparent distress at this time. Patient jd3 and/or family updated on plan of care and expected duration. Pain level reassessed. Patient is alert, oriented x 3, equal unlabored respirations, skin warm/dry/pink. Patient states feeling better. january 01:00 02/26 23:40 Response: No adverse reaction january sin
--- NOTE | 2019-02-27 01:00 | EDPHYS ---
Physician Documentation [facility] Name: Stan Jimenes Age: 63 yrs Sex: Male : 1955 Arrival Date: 02/26/2019 Time: 22:15 Bed 19 Private MD: ED Physician Basil Ya HPI: 02/26 23:46 This 63 yrs old Male presents to ER via Wheelchair with complaints of Back rn Pain. 23:46 The patient presents with pain that is acute, with no known mechanism of injury. The rn symptoms are located in the low back. Onset: The symptoms/episode began/occurred 2 day(s) ago. The pain does not radiate. Associated signs and symptoms: Pertinent positives: none Pertinent negatives: chest pain, constipation, fever, hematuria, incontinence, nausea, numbness, tingling, urinary retention, vomiting, weakness. Modifying factors: The patient symptoms are alleviated by nothing, the patient symptoms are aggravated by any movement. Severity of symptoms: At their worst the symptoms were moderate, in the emergency department the symptoms are unchanged. The patient has experienced similar episodes in the past. Reports several similar episodes of back pain but worse today, present for 2 days, no injury. No focal neurological symptoms. No bowel/bladder issues. No trauma. No blood in stool or urine. . Historical: - Allergies: 22:34 No Known Allergies; jd3 - Home Meds: 22:34 acetaminophen-codeine 300-30 mg Oral tab 2 tabs every 6 hours [Active]; allopurinol 100 jd3 mg Oral tab once daily for Gout [Active]; amlodipine 10 mg tab 1 tab once daily [Active]; aspirin 81 mg Oral TbEC 1 tab once daily [Active]; calcitriol 0.25 mcg Oral cap 1 cap [Active]; carvedilol 6.25 mg Oral tab 1 tab 2 times per day [Active]; esomeprazole magnesium 40 mg Oral cpDR 1 cap once daily [Active]; magnesium oxide 400 mg Oral tab 400 mg daily [Active]; metoprolol tartrate 25 mg Oral tab 1 tab 2 times per day [Active]; ranitidine HCl 150 mg Oral tab 1 tab once daily [Active]; Silenor 6 mg Oral tab 1 tab once daily [Active]; tamsulosin 0.4 mg Oral cp24 1 cap once daily [Active]; tramadol 50 mg Oral tab 1 tab every 8 hours [Active]; - PMHx: 22:34 Aneurysm; Hypertension; High Cholesterol; POLYCYSTIC KIDNEY DISEASE; Diabetes - NIDDM; jd3 COPD; AAA; - PSHx: 22:34 missing rib on L; jd3 - Immunization history:: Adult Immunizations up to date, Flu vaccine is not up to date. - Social history:: Smoking status: Patient/guardian denies using tobacco, but has a distant history of tobacco abuse. - Ebola Screening: : Patient negative for fever greater than or equal to 101.5 degrees Fahrenheit, and additional compatible Ebola Virus Disease symptoms. - Family history:: not pertinent. - Hospitalizations: : No recent hospitalization is reported. ROS: 23:46 Constitutional: Negative for fever, chills, and weight loss, Eyes: Negative for injury, rn pain, redness, and discharge, Neck: Negative for injury, pain, and swelling, Cardiovascular: Negative for chest pain, palpitations, and edema, Respiratory: Negative for shortness of breath, cough, wheezing, and pleuritic chest pain, Abdomen/GI: Negative for abdominal pain, nausea, vomiting, diarrhea, and constipation, Back: + low back pain, no injury or trauma MS/Extremity: Negative for injury and deformity, Skin: Negative for injury, rash, and discoloration, Neuro: Negative for headache, weakness, numbness, tingling, and seizure. Exam: 23:46 Constitutional: This is a well developed, well nourished patient who is awake, alert, rn rolled to room in wheelchair, painful when ambulating to bed. Head/Face: Normocephalic, atraumatic. Cardiovascular: Regular rate and rhythm. No pulse deficits. Respiratory: No increased work of breathing, no retractions or nasal flaring. Abdomen/GI: soft, non-tender, non-distended Back: No spinal tenderness MS/ Extremity: Pulses equal, no cyanosis. Neurovascular intact. Full, normal range of motion. Equal circumference. Neuro: Awake and alert, GCS 15, oriented to person, place, time, and situation. Cranial nerves II-XII grossly intact. Motor strength 5/5 in all extremities. Sensory grossly intact. Cerebellar exam normal. Vital Signs: 22:35 BP 155 / 93; Pulse 75; Resp 19 S; Temp 98.7(O); Pulse Ox 97% on R/A; Weight 111.13 kg jd3 (R); Height 6 ft. 2 in. (187.96 cm) (R); Pain 10/10; 23:58 Pulse 78; Resp 16 S; Pulse Ox 86% on R/A; jd3 02/27 00:00 Pulse Ox 99% on 2 lpm NC; jd3 00:54 Pulse 72; Resp 15 S; Pulse Ox 97% on 2 lpm NC; d3 02/26 22:35 Body Mass Index 31.46 (111.13 kg, 187.96 cm) [facility] 02/26 23:58 pt placed on nasal canula j MDM: 22:21 Patient medically screened. rn 02/27 00:56 Differential diagnosis: arthritis, chronic back pain, sprain, Ureterolithiasis rn radiculopathy, muscle spasm, disc problem. Data reviewed: vital signs, nurses notes, lab test result(s), radiologic studies, CT scan, and as a result, I will discharge patient. Counseling: I had a detailed discussion with the patient and/or guardian regarding: the historical points, exam findings, and any diagnostic results supporting the discharge/admit diagnosis, lab results, radiology results, the need for outpatient follow up, to return to the emergency department if symptoms worsen or persist or if there are any questions or concerns that arise at home. Response to treatment: the patient's symptoms have markedly improved after treatment, and as a result, I will discharge patient. Special discussion: I discussed with the patient/guardian in detail that at this point there is no indication for admission to the hospital. It is understood, however, that if the symptoms persist or worsen the patient needs to return immediately for re-evaluation. ED course: No acute findings on CT, no findings on exam or story to suggest spinal cord compression or emergency, will dc home with pain meds, steroids, muscle relaxer, and return precautions. . 02/26 22:30 Order name: Basic Metabolic Panel; Complete Time: 23:14 rn 02/26 22:30 Order name: CBC with Diff; Complete Time: 23:14 rn 02/26 22:30 Order name: Creatinine for Radiology; Complete Time: 23:14 rn 02/26 22:30 Order name: Hepatic Function; Complete Time: 23:14 rn 02/26 22:30 Order name: Lipase; Complete Time: 23:14 rn 02/26 22:32 Order name: CT Abd/Pelvis - Without Contrast rn 02/26 22:30 Order name: IV Saline Lock; Complete Time: 22:39 rn 02/26 22:30 Order name: Labs collected and sent; Complete Time: 22:39 rn Administered Medications: 02/26 22:43 Drug: Zofran 4 mg Route: IVP; Site: left antecubital; [facility] 23:40 Follow up: Response: No adverse reaction j 22:44 Drug: morphine 4 mg Route: IVP; Site: left antecubital; [facility] 02/27 01:00 Follow up: Response: No adverse reaction; RASS: Alert and Calm (0) [facility] 02/26 23:57 Drug: Demerol 50 mg Route: IVP; Site: left antecubital; [facility] 02/27 00:55 Follow up: Response: No adverse reaction; RASS: Alert and Calm (0) [facility] 02/26 23:57 Drug: Decadron - Dexamethasone 10 mg Route: IVP; Site: left antecubital; [facility] 02/27 00:55 Follow up: Response: No adverse reaction [facility] Disposition: 02/27/19 00:58 Discharged to Home. Impression: Low back pain, Radiculopathy, lumbosacral region. - Condition is Stable. - Discharge Instructions: Back Pain, Adult, Lumbosacral Radiculopathy, Musculoskeletal Pain. - Prescriptions for Tylenol- Codeine #3 300-30 mg Oral Tablet - take 2 tablets by ORAL route every 6 hours As needed; 20 tablet. Cyclobenzaprine 10 mg Oral Tablet - take 1 tablet by ORAL route every 8 hours As needed; 15 tablet. Medrol (Allan) 4 mg Oral Tablets, Dose Pack - take 1 tablet by ORAL route as directed - follow package instructions; 1 packet. - Medication Reconciliation Form, Thank You Letter, Antibiotic Education, Prescription Opioid Use form. - Follow up: Private Physician; When: As needed; Reason: Recheck today's complaints, Re-evaluation by your physician. - Problem is new. - Symptoms have improved. Signatures: Dispatcher [employer] Basil Israel MD MD rn Davies, Jonathon, RN RN jd3 Corrections: (The following items were deleted from the chart) 01:15 00:58 02/27/2019 00:58 Discharged to Home. Impression: Low back pain; Radiculopathy, jd3 lumbosacral region. Condition is Stable. Forms are Medication Reconciliation Form, Thank You Letter, Antibiotic Education, Prescription Opioid Use. Follow up: Private Physician; When: As needed; Reason: Recheck today's complaints, Re-evaluation by your physician. Problem is new. Symptoms have improved. rn
[2019-02-27 01:24] VITALS: BP 155/93; TEMP 98.7
[2019-02-27 01:27] VITALS: O2SAT 97
--- NOTE | 2019-02-28 08:39 | RAD REPORT ---
EXAM DESCRIPTION: CT - Abdomen Pelvis Wo Contrast - 02/27/2019 5:22 am CLINICAL HISTORY: 63-year-old male with lower back pain and history of AAA repair, abdominal pain, p olycystic kidney disease, COPD, diabetes, history of left rib removal for attempted kidney donation TECHNIQUE: Axial CT imaging of the abdomen and pelvis was performed. Sagittal and coronal reconstr ucted images were then performed. The CT study is performed according to ALARA (as low as reasonably achievable) or ALARA/IMAGE GENTLY, with automatic adjustment of mA and/or kV according to patient siz e. Performed on: 02/26/2019 at 11:14 PM COMPARISON: 11/24/2018. FINDINGS: Lung bases: There is a stable 1.5 x 1.3 cm fat-containing mass along the posterior medial right lower lobe consistent with a benign process such as a hamartoma. The lung bases are otherwise c lear. Liver: The liver is mildly enlarged and measures 18.4 cm in craniocaudal dimension. Again demonstrate d are multiple, grossly stable sharply marginated hypodense lesions within the liver compatible with incidental hepatic cysts. Liver attenuation is within normal limits. Spleen: The spleen is normal is size, configuration and attenuation. No focal splenic abnormalities a re appreciated on this unenhanced scan. Gallbladder and bile duct: The gallbladder is well distended and unremarkable. There is no biliary ductal dilatation. Pancreas: The pancreas is grossly normal in size and configuration. Adrenal Glands: The adrenal glands are normal in size and configuration. Kidneys: Again demonstrated are multicystic kidneys bilaterally compatible with polycystic kidney dis ease. There are many hypo and hyperdense cysts and partially calcified renal cysts. There is no evide nce of hydronephrosis. Stomach: The stomach is grossly normal. There is no definite hiatal hernia. Bowel: The bowel gas pattern is non specific and non obstructive. There is scattered colonic divertic ulosis without can diverticulitis. Appendix: The appendix is normal. Free air: There is no evidence of free air. Free fluid: There is no evidence of free fluid. Vasculature: An aortobiiliac stent graft is present and is grossly stable in appearance when compared to the prior study. The inferior vena cava is grossly unremarkable. Lymphadenopathy: No pathologic lymphadenopathy is identified. Bladder: The bladder is well distended and smooth in contour. Reproductive: The prostate gland is grossly within normal limits. Bones: No acute osseous abnormalities are identified. Soft tissues: There is a grossly stable small fat-containing ventral umbilical hernia. IMPRESSION: 1. Overall, no significant interval change when compared to the prior study.. 2. Polycystic kidney disease. 3. Grossly stable hepatic cysts. 4. Stable 1.5 cm fat-containing mass along the posterior medial right lower lobe consistent with a be nign process such as a hamartoma. 5. Stable aortobiiliac stent graft. 6. Stable fat-containing ventral umbilical hernia. 7. Colonic diverticulosis. Electronically signed by: Sheree Jones DO 02/27/2019 12:16 AM [employer] Due to temporary technical issues with the PACS/Fluency reporting system, reports are being signed by the in house radiologist as a courtesy to ensure prompt reporting. The interpreting radiologist is f ully responsible for the content of the report.
== END 2019-02-27 01:15 | disposition home or self-care (01) ==
LOC: ER 22:11
DX: M54.17 Radiculopathy, lumbosacral region (principal); I10 Essential (primary) hypertension; E11.9 Type 2 diabetes mellitus without complications; E78.00 Pure hypercholesterolemia, unspecified; Q61.3 Polycystic kidney, unspecified; Z79.82 Long term (current) use of aspirin
CPT/HCPCS: 85025; 80048; 36415; 80076; 83690; 74176; 96375; 96374; 99284; J1100; J2175; J2405

== ENCOUNTER 2019-11-14 16:05 | Observation (INO) | payer OTHER ==
--- OUTSIDE RECORDS SUMMARY | 2019-11-14 16:10 | XMS REPORT | Continuity of Care Document ---
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 H OPID GAMMOPATHY 2018 [place] CKD 9 CHRONIC KIDNEY Active [facility] DISEASE [address] [place] [address] ELEVATED GAMMA [place] GLOBULIN/ PRE -KIDNEY [address] [place] [address] KIDNEY/DO NOT USE FOR Active [facility] CHARGES F/C [facility]ES [facility] [address] [place] EVALUATION [place] [address] [place] [address] Z87.891 - PERSONAL Active H OPID HISTORY OF NICOTINE D 2017 [place] Hypomagnesemia Brown brunner 2017 7 Weakness Norbert d 2016 7 Other disorders of M H [place] phosphorus metabolism 2017 7 WEAKNESS Active [facility] 2016 Zen Discharge Diagnosis: [facility] Sore throat 2015 6 Discharge Diagnosis: [facility] Foreign body (FB) in 2016 6 soft tissue (Throat) THROAT PAIN Active [facility] 2015 [place] Discharge Diagnosis: [facility] Weakness 2016 6 Discharge Diagnosis: [facility] Chronic back pain 2016 6 Discharge Diagnosis: [facility] History of AAA 2016 6 (abdominal aortic aneurysm) repair Discharge Diagnosis: [facility] Articular gout 2016 6 CHEST PAIN Active [facility] 2016 Zen 491.20 - OBST CHR Active 09/10/ LAURA CARNEY 2013 [employer] Kidney disease Active Problem [place] (disorder[place] [facility], LAURA Zaldivar, [facility] Final: Weakness P [place] 6 Final: Abdominal [facility] aortic aneurysm, 6 without rupture Final: Idiopathic [facility] gout, unspecified site 6 Final: Hypertensive [facility] chronic kidney disease 6 with stage 1 through stage 4 chronic kidney disease, or unspecified chronic kidney disease Final: Chronic kidney [facility] disease, unspecified 6 Abdominal aortic Resolved Problem Medical aneurysm (disorder) 0 Group,[facility], Morenita Tolu Zaldivar, LAURA Xavier,[facility] Antibiotic prophylaxis Active Problem Medical indicated 0 Group (context-dependent category) Arthritis (disorder) Active Problem Medical 0 Group,[facility], LAURA Zaldivar, [facility] Autosomal dominant Active Problem [facility] Medical polycystic kidney 0 Gr oup disease Benign prostatic Active Problem Medical hyperplasia (disorder) 0 Group Bladder dysfunction Active Problem Medical (finding) 0 Group Blood coagulation Active Problem Medical disorder (disorder) 0 Group,[facility], LAURA Zaldivar, [facility] Chronic kidney disease Active Problem Medical (disorder) 0 Group Chronic obstructive Active Problem Data Medical lung disease 0 migrated Group,M H (disorder) from [facility] on 07/29/14. Center, Diana Funez, LAURA Zaldivar, LAURA Xavier,[facility] Diabetic neuropathy Resolved Problem Medical (disorder) 0 Group,[facility] Essential hypertension Active Problem Data Medical (disorder) 0 migrated Group, from [facility] on 07/29/14. [place],[facility] Morenita,[facility] LAURA Zaldivar, LAURA Xavier,[facility] Gastroesophageal Active Problem Data Medical reflux disease 0 migrated Group , (disorder) from [facility] on 07/29/14. [place],[facility] More[place],[facility] LAURA Zaldivar, LAURA Xavier,[facility] Gout (disorder) Active Problem Data [facility] edical 0 migrated Group, from [facility] on 07/29/14. [place],[facility] More[place],[facility] LAURA Zaldivar, LAURA Xavier,[facility] Hypercholesterolemia Active Problem Data Medical (disorder) 0 migrated Group, from [facility] on 07/29/14. [place],[facility] [place],[facility] LAURA Zaldivar, LAURA Xavier,[facility] Hyperlipidemia Active Problem Me dical (disorder) 0 Group,[facility] LAURA Zaldivar, LAURA Xavier,[facility] Hypertensive disorder, Active Problem Medical systemic arterial 0 Gr oup, (disorder) [facility] LAURA basilio, LAURA Zaldivar, LAURA Xavier,[facility] Hypogonadism Active Problem Data Medi iris (disorder) 0 migrated Group, from [facility] on 07/29/14. [place],[facility] More[place],[facility] LAURA Zaldivar, LAURA Xavier,[facility] Inflammatory disease Active Problem Medical of liver (disorder) 0 Group,[facility], LAURA Zaldivar, [facility] Low compliance bladder Active Problem Medical (disorder) 0 Group Microscopic hematuria Active Problem Medical (disorder) 0 Group Morbid obesity Active Problem Me dical (disorder) 0 Group,[facility], LAURA ZaldivarMH [facility] Patient encounter Active Problem Medical status (finding) 0 [place] Proteinuria (finding) Active Problem Medical 0 Group CHRONIC KIDNEY [place] DISEASE, UNSPECIFIED Medical Center ENCOUNTER FOR OTHER Active [facility] PREPROCEDURAL EXAMIN Medical Center ABDOMINAL DISTENSION Active [facility] (GASEOUS) Medical Center ENCOUNTER FOR Active Aiden as PREPROCEDURAL Medica l LABORATORY E Center Medications Medication Details Route Status Patient Ordering Order Source Instructions Provider Date Ceftriaxone 1 gm, Route: Inactive IM, Drug 2019 Medical form: Group PDR/INJ, ONCE, Dosing Weight 113.636, kg, Priority: STAT, Start date: 04/27/19 10:16:00 DIRECT[employer]FFIC [employer]ANNING, Stop date: 04/27/19 10:16:00 [employer] amLODIPine 5 mg oral 5 mg = 1 tab, Active 04/01 [facility] tablet PO, Daily, # 2020 Medical 90 tab, 3 Center Refill(s), Pharmacy: [facility]/pharmacy #[id number] atorvastatin 20 mg 20 mg = 1 Active [facility] oral tablet tab, PO, 2020 Medical Bedtime, # 90 Center tab, 2 Refill(s), Pharmacy: [facility]/pharmacy #[id number] atorvastatin 20 mg 20 mg = 1 Inactive [facility] oral tablet tab, PO, 2020 Medical Bedtime, # 90 Center tab, 3 Refill(s) amLODIPine 5 mg oral 5 mg = 1 tab, Inactive 03/04 [place] tablet PO, Daily, # 2020 Medical 90 tab, 1 Center Refill(s) Metoprolol Tartrate 25 mg = 0.5 No Longer [place] 50 mg oral tablet tab, PO, BID, Active 2019 Medical TAKE 1/2 Center TABLET BY MOUTH TWICE A DAY WITH MEALS albuterol 90 mcg/inh INHALE 2 Active [place] inhalation aerosol PUFFS BY 2020 Medi iris MOUTH EVERY 4 Center HOURS NEEDED FOR SHORTNESS OF BREADTH Breo Ellipta 100 INHALE 1 PUFF Active H [place] mcg-25 mcg BY MOUTH ONCE 2019 Medical inhalation powder A DAY FOR 90 C enter DAYS cyclobenzaprine 10 10 mg = 1 Active [place] mg oral tablet tab, PO, Q8H, 2019 Med ical NEEDED FOR Center MUSCLE SPASMS allopurinol 100 mg 200 mg = 2 Active [place] oral tablet tab, PO, 2020 Medical Daily Center Acetaminophen 300 MG 2 tab, PO, Active [place] / Codeine Phosphate Q6H, 2020 Medi iris 30 MG Oral Tablet NEEDED FOR [place]opatra ter PAIN MethylPREDNISolone See Inactive [place] Dose Pack 4 mg oral Instructions, 2019 Medical tablet PO, Daily, Center Use as directed on label., 0 Refill(s) carvedilol 25 mg 25 mg = 1 [place] oral tablet tab, PO, BID, 2019 Medica l 1 Refill(s) [place] carvedilol 6.25 mg 6.25 mg = 1 Active 07/23/ M H [place] oral tablet tab, PO, 2019 Medical Q12H, # 60 Center tab, 5 Refill(s), Pharmacy: [facility]/pharmacy #[id number] atorvastatin 10 mg 10 mg = 1 Active [place] oral tablet tab, PO, 2019 Medical Bedtime, # 30 Center tab, 5 Refill(s), Pharmacy: [facility]/pharmacy #[id number] carvedilol 3.125 mg 3.125 mg = 1 No Longer 06/23 [place] oral tablet tab, PO, BID, Active 2019 Medica l 0 Refill(s) [place] calcitriol 0.25 mcg 0.25 [place] oral capsule microgram = 1 2019 Medic al cap, PO, Center Daily, 0 Refill(s) tamsulosin 0.4 mg 0.4 mg = 1 Active [place] oral capsule cap, PO, 2019 Medical Daily, 0 Center Refill(s) metoprolol tartrate 50 mg = 1 Active [place] 50 mg oral tablet tab, PO, 2019 Medic al Daily Center carvedilol 12.5 mg 12.5 mg = 1 Active M H [place] oral tablet tab, PO, BID, 2019 Medica l WITH FOOD Center amLODIPine 10 mg 10 mg = 1 [place] oral tablet tab, PO, 2019 Medical Daily, # 30 Center tab, 0 Refill(s) magnesium oxide 400 400 mg = 1 Active 04/06/ M H [place] mg oral tablet tab, PO, 2019 Medical Daily Center Metoprolol Tartrate 25 mg = 0.5 Active [place] 50 mg oral tablet tab, PO, BID 2019 [facility] Glipizide 10 MG Oral 10 mg = 1 Active H [place] Tablet tab, PO, 2018 Medical Daily, 0 Center Refill(s) pravastatin 80 mg 80 mg = 1 [place] oral tablet tab, PO, 2018 Medical Daily, 0 Center Refill(s) Amlodipine 10 mg, PO, No Longer [place] Daily, 0 Active 2019 Medical Refill(s) Center Esomeprazole 40 MG 40 mg = 1 Active [facility] Enteric Coated cap, PO, 2018 Medical Capsule Daily, 0 Center Refill(s) metoprolol 100 mg 100 mg = 1 No Longer H [place] oral tablet, tab, PO, BID, Active 2019 Medic al extended release 0 Refill(s) [address] allopurinol 300 mg 300 mg = 1 Active [facility] oral tablet tab, PO, 2018 Medical Daily, 0 Center Refill(s) Doxepin 6 mg, PO, Active [facility] Bedtime, 0 2019 Medical Refill(s) Center carvedilol 3.125 mg 3.125 mg = 1 No Longer 04/05 [facility] oral tablet tab, PO, BID, Active 2019 Medica l 0 Refill(s) Center losartan 25 mg oral 25 mg = 1 Active [facility] tablet tab, PO, 2019 Medical Daily, 0 Center Refill(s) Ranitidine 150 MG 150 mg = 1 Active [facility] Oral Tablet tab, PO, 2018 Medical Bedtime, 0 Center Refill(s) Adult Aspirin 81 mg 81 mg = 1 Active [facility] oral tablet, tab, CHEW, 2018 Medical chewable Daily, 0 Center Refill(s) potassium Notes: (Same Inactive phosphate-sodium as: Phos-NaK) 2017 [place] phosphate 250 mg-45 Each 1.5 gm mg-298 mg oral pkt has 250mg tablet phosphorous. Mix w/2.5oz water and stir. potassium phosphate Notes: (Same Inactive 155 MG / Sodium as: K-Phos 2017 Yamini and Phosphate, Dibasic Neutral, 852 MG / Sodium Phospha 250 Phosphate, Monobasic Neutral) 130 MG Oral Tablet [K-Phos Neutral] Magnesium Sulfate Notes: WASTE: Inactive F/P - Sink; E 2017 [place] - [facility] GI cocktail Notes: G.I. Inactive Cocktail = 2016 [place] antacid with simethicone 22.5 mL - lidocaine viscous 7.5 mL Sodium Chloride 0.9% 1,000 mL, Inactive IV (Sodium Chloride 2,000 ml/hr, 2016 [place] 0.9% (Bolus) IV) Infuse Over: 30 minutes, Route: IV, 1,000, Drug form: INJ, ONCE, Priority: STAT, Dosing Weight 118.182 kg, Start date: 11/03/16 10:34:00 CDT, Duration: 1 doses or times, Stop date: 11/03/16 10:34:00 CDT Saline Flush 0.9% Notes: (Same Inactive as: BD 2017 [place] Posiflush) clindamycin 300 mg 300 mg = 1 Active oral capsule cap, PO, TID, 2016 [place] and X 10 day, # 30 cap, 0 Refill(s) GI cocktail Notes: G.I. Inactive Cocktail = 2015 [place] antacid with simethicone 22.5 mL - lidocaine viscous 7.5 mL {21 See Active (Methylprednisolone Instructions, 2016 [place] 4 MG Oral Tablet PO, Take by [Medrol]) } Pack mouth as [Medrol Dosepak] directed on label., X 6 day, # 1 Pack, 0 Refill(s) Sodium Chloride 1,000 mL, Inactive 0.154 MEQ/ML 1,000 ml/hr, 2016 [place] Injectable Solution Infuse Over: 1 hr, Route: IV, 1,000, Drug form: INJ, ONCE, Priority: STAT, Dosing Weight 118.182 kg, Start date: 06/20/15 12:27:00 CDT, Duration: 1 doses or times, Stop date: 06/20/15 12:27:00 CDT Zofran Notes: (Same Inactive as: Zofran) 2015 [place] MEDICATION WASTE Product Size: 4 mg Product Wasted: ___ mg Morphine Notes: (Same Inactive as:MORPhine 2016 [place] Sulfate) Saline Flush 0.9% Notes: (Same Inactive as: BD 2016 [place] Posiflush) Allergies, Adverse Reactions, Alerts Substance Category Reaction Severity Reaction Status Date Comments S ource type Reported No Known Assertion Drug Medication allergy Medic al Allergies Group Immunizations Immunization Date Given Site Status Last Comments Source Updated varicella virus 04/01/2019 Right lwr completed [facility] vaccine abdom quad Group,[facility] measles/mumps/rub 04/01/2019 Left upper completed [facility] tez virus arm Group, vaccine [facility] Results Order Name Results Value Reference Date Interpretation Comments Esperanza rce Range URINE AND POC UA Color Yellow Yellow 04/27 STOOL *NA Medical (04/27/19 8:05 AM) Group URINE AND POC UA Clear Clear 04/27 STOOL Turbidity *NA [facility] (04/27/19 8:05 AM) Group URINE AND POC UA SG 1.015 <=1.030 04/27 STOOL Medical Group URINE AND POC UA pH 6.0 5.0 - 8.0 04/27 STOOL Medical Group URINE AND POC UA Prot >=300 Negative 04/27 STOOL mg/dL mg/dL Medical Group URINE AND POC UA Glu Negative Negative 04/27 STOOL mg/dL mg/dL Medical Group URINE AND POC UA Ket Negative Negative 04/27 STOOL mg/dL mg/dL Medical Group URINE AND POC UA Bili Negative Negative 04/27 STOOL *NA [facility] (04/27/19 8:05 AM) Group URINE AND POC UA Bld Trace Negative 04/27 STOOL *ABN [facility] (04/27/19 8:05 AM) Group URINE AND POC UA Uro 0.2 0.1 - 1.0 04/27 STOOL Medical Group URINE AND POC UA Nit Negative Negative 04/27 STOOL *NA [facility] (04/27/19 8:05 AM) Group URINE AND POC UA Negative Negative 04/27 STOOL LeukEst *NA [facility] (04/27/19 8:05 AM) Group ANEMIA Ferritin Lvl 237 22 - 275 03/[address] ANEMIA Iron 46 45 - 160 03/[address] ANEMIA TIBC 300 228 - 428 03/[address] ANEMIA UIBC 254 110 - 370 03/[address] ANEMIA % Satur Fe 15 12 - 57 03/[address] CHEM PANEL Glucose Lvl 74 70 - 99 03/[address] CHEM PANEL BUN 43 7 - 22 03/[address] CHEM PANEL Creatinine 4.40 0.50 - 03/16 [facility] Lvl 1.40 [facility] CHEM PANEL Sodium Lvl 143 135 - 145 03/[address] CHEM PANEL Potassium 3.9 3.5 - 5.1 03/16 [facility] [place] [facility] [address] CHEM PANEL Chloride Lvl 109 95 - 109 03/[address] CHEM PANEL CO2 26 24 - 32 03/[address] CHEM PANEL Calcium Lvl 8.5 8.5 - 10.5 03/[address] CHEM PANEL Total 7.5 6.4 - 8.4 03/16 [facility] Protein [address] CHEM PANEL Albumin Lvl 3.4 3.5 - 5.0 03/[address] CHEM PANEL ALT 16 0 - 65 03/[address] CHEM PANEL AST 11 0 - 37 03/[address] CHEM PANEL Alk Phos 68 39 - 136 03/[address] CHEM PANEL Bili Total 0.3 0.2 - 1.3 03/[address] CHEM PANEL AGAP 11.9 10.0 - 03/16 [place] 20.0 [facility] CHEM PANEL B/C Ratio 10 6 - 25 03/[address] CHEM PANEL Globulin 4.1 2.7 - 4.2 03/[address] CHEM PANEL A/G Ratio 0.8 0.7 - 1.6 03/[address] CHEM PANEL eGFR 13 03/16 [facility] Comment: The Medical eGFR is Center calculated using the CKD-EPI formula. In most young, healthy individuals the eGFR will be >90 mL/min/1.73m2 . The eGFR declines with age. An eGFR of 60-89 may be normal in some populations, particularly the elderly, for whom the CKD-EPI formula has not been extensively validated. Use of the eGFR is not recommended in the following populations:< br/>
Mayra viduals with unstable creatinine concentration s, including patients and those with serious co-morbid conditions.<b r/>
Patie nts with extremes in muscle mass or diet.

The data above are obtained from the National Kidney Disease Education Program (NKDEP) which additionally recommends that when the eGFR is used in patients with extremes of body mass index for purposes of drug dosing, the eGFR should be multiplied by the estimated BMI. CHEM PANEL Magnesium 1.2 1.8 - 2.4 03/16 [facility] [place] [facility] CHEM PANEL Phosphorus 3.9 2.5 - 4.5 03/16 [facility]2019 [facility] CHEM PANEL Uric Acid 7.1 3.8 - 8.0 03/16 [facility]2019 [facility] CHEM PANEL Vitamin D, 42.0 30.0 - 03/16 [facility] 25-OH, Total 100.0 [facility] CHEM PANEL LDH 164 98 - 192 03/[address] CHEM PANEL Creatinine 4.39 0.50 - 03/16 [facility] [place] [facility] 1.40 [facility] CHEM PANEL eGFR 13 03/16 Result Comment: The Medical eGFR is Center calculated using the CKD-EPI formula. In most young, healthy individuals the eGFR will be >90 mL/min/1.73m2 . The eGFR declines with age. An eGFR of 60-89 may be normal in some populations, particularly the elderly, for whom the CKD-EPI formula has not been extensively validated. Use of the eGFR is not recommended in the following populations:< br/>
Mayra viduals with unstable creatinine concentration s, including patients and those with serious co-morbid conditions.<b r/>
Patie nts with extremes in muscle mass or diet.

The data above are obtained from the National Kidney Disease Education Program (NKDEP) which additionally recommends that when the eGFR is used in patients with extremes of body mass index for purposes of drug dosing, the eGFR should be multiplied by the estimated BMI. DRUG SCREEN Phencyclidin Negative Negative 03/16 Result [place] e Scr Comment: Medical ScrCutoff:25 Center ng/mL DRUG SCREEN Kaitlin Scr Negative Negative 03/16 Result Comment: Medical ScrCutoff:20 Center ng/mL DRUG SCREEN Cannab Scr Negative Negative 03/16 Result Comment: Medical ScrCutoff:1 Center ng/mL DRUG SCREEN Methadone Negative Negative 03/16 Result Comment: Medical ScrCutoff:20 Center ng/mL DRUG SCREEN Cocaine Scr Negative Negative 03/16 Result Comment: Medical ScrCutoff:20 Center ng/mL DRUG SCREEN Benzodiaz Negative Negative 03/16 Result Comment: Medical ScrCutoff:20 Center ng/mL DRUG SCREEN Amph Scr Negative Negative 03/16 Result Comment: Medical ScrCutoff:20 Center ng/mL DRUG SCREEN Opiate Scr Positive Negative 03/16 Result Comment: Medical ScrCutoff:20 Center ng/mL DRUG SCREEN 6-Acetylmor Negative Negative 03/16 Result Comment: Medical ScrCutoff:300 Center ng/mL DRUG SCREEN Opiate Qnt Positive Negative 03/16 Result Comment: Medical codeine Center ConfirmCutoff :10 ng/mL Value:97 HEMATOLOGY PT 12.8 12.0 - 03/16 [place] 14.7 [facility] HEMATOLOGY INR 0.96 0.85 - 03/16 [place] 1.17 [facility] HEMATOLOGY PTT 33.5 22.9 - 03/16 [place] 35.8 [facility] HEMATOLOGY WBC 8.5 3.7 - 10.4 03/16 [facility] HEMATOLOGY RBC 4.31 4.70 - 03/16 [place] 6.10 [facility] HEMATOLOGY Hgb 12.6 14.0 - 03/16 [place] 18.0 [facility] HEMATOLOGY Hct 39.5 42.0 - 03/16 [place] 54.0 [facility] HEMATOLOGY MCV 91.6 80.0 - 03/16 [place] 94.0 [facility] HEMATOLOGY MCH 29.3 27.0 - 03/16 [place] 31.0 [facility] HEMATOLOGY MCHC 32.0 32.0 - 03/16 [place] 36.0 [facility] HEMATOLOGY RDW 15.5 11.5 - 03/16 [place] 14.5 /2020 [facility] HEMATOLOGY Platelet 215 133 - 450 03/16 [facility] HEMATOLOGY MPV 9.0 7.4 - 10.4 03/16 [facility]2019 [facility] HEMATOLOGY AT III Func 118 77 - 140 03/16 [facility]2019 [facility] HEMATOLOGY F5 Leiden Negative 03/16 [facility] PCR (03/16/19 7:10 AM) [facility] HEMATOLOGY F5 Leiden See note 03/16 Result [facility] Intr Comment: Medical FACTOR V Center LEIDEN: Negative
INTERPRE TATION:
Molecula r analysis for the Factor V Leiden [id number] mutation is negative. Other causes of activated protein C resistance and hereditary forms of venous thrombosis are not ruled out.
The test result must be interpreted along with the patients clinical history and relevant laboratory data. Where appropriate, medical consultation and/or genetic counseling should be offered to inform and explain the risk implications and genetic implications of these test results.
ASSAY LIMITATIONS:
The Og Andrade assay uses the FDA-cleared real time polymerase chain reaction (PCR) reagents for the detection and genotyping of the human Factor V Leiden [id number] mutation. The assay will amplify a 233 base pair fragment of Factor V gene (FV)containin g the Factor V Leiden [id number] sequence. The assay is designed to detect the [id number] mutation only. Other causes of activated protein C resistance and hereditary forms of venous thrombosis are not ruled out. The presence of PCR inhibitors may cause invalid results.
The performance characteristi cs of this assay were validated by the Molecular Diagnostic Laboratory within [facility]. The Molecular Diagnostic Laboratory is authorized under the Clinical Laboratory Improvement Amendments of 1988 (CLIA-88) to perform high complexity testing. HEMATOLOGY dRVV Ratio 1.26 <=1.20 03/16 [facility] [address] [place] [address] HEMATOLOGY Plt Neut Negative 03/16 [facility] Test [facility] HEMATOLOGY Hex Phos N Negative Negative 03/16 [facility] (03/16/19 7:10 AM) [facility] HEMATOLOGY Lup Interp Negative 03/16 [facility] for lupus [facility] ant (prolonged dRVVT, negative hexagonal phospholip id neutraliza tion, and negative Platelet Neutraliza tion procedure) . Thrombin Time is normal (15.5 sec) which rules out heparin as interferen ce substance. CPT: 11015 HEMATOLOGY F2 Mutation Negative 03/16 [facility] PCR (03/16/19 7:10 AM) [facility] HEMATOLOGY F2 Mut See note 03/16 Result [facility] Inter Comment: Medical FACTOR II PT: Center Negative
INTERPRE TATION:
Molecula r analysis for the Factor II (Prothrombin) [id number] mutation is negative. Other causes of elevated prothrombin levels and hereditary forms of venous thrombosis are not ruled out.
The test result must be interpreted along with the patients clinical history and relevant laboratory data. Where appropriate, medical consultation and genetic counseling should be offered to inform and explain the risk implications and genetic implications.
ASSAY LIMITATIONS:< br/>The Og Andrade assay uses FDA-cleared Real time Polymerase chain reaction (PCR) reagents for the detection and genotyping of the human Factor II (Prothrombin) [id number] mutation. The assay will amplify a 173 base pair fragment of Factor II
Gene (FII) containing the Factor II [id number] sequence. The assay is designed to detect the [id number] mutation only. Other causes of elevated prothrombin levels and hereditary forms of venous thromboses are not ruled out. The presence of PCR inhibitors may cause invalid results.
The performance characteristi cs of this assay were validated by the [facility] Center. The [facility] is authorized under the Clinical Laboratory Improvement Amendments of 1988 (CLIA-88) to perform high complexity testing. HEMATOLOGY Protein C 118 72 - 147 03/16 [facility] [address] [place] [address] HEMATOLOGY Protein S 113 54 - 137 03/[address] HEMATOLOGY Segs 58.7 45.0 - 03/16 [facility] 75.0 [facility] HEMATOLOGY Lymphocytes 30.5 20.0 - 03/16 [facility] 40.0 [facility] HEMATOLOGY Monocytes 8.0 2.0 - 12.0 03/[address] HEMATOLOGY Eosinophils 2.2 0.0 - 4.0 03/16 [facility]2019 [facility] HEMATOLOGY Basophils 0.6 0.0 - 1.0 03/[address] HEMATOLOGY Neutrophils 5.0 1.5 - 8.1 03/16 [facility] s [facility] HEMATOLOGY Lymphocytes 2.6 1.0 - 5.5 03[place] /2019 [facility] HEMATOLOGY Monocytes # 0.7 0.0 - 0.8 03[place]2020 [facility] HEMATOLOGY Eosinophils 0.2 0.0 - 0.5 03/[place] # /2019 [facility] IMMUNOLOGY Cystatin C 3.70 0.62 - 03/16 Result [place] 1.16 Comment: Medical Performed At: [facility]
[address] [place] [id number]<br/ >Brian Morales MD Ph:[phone] IMMUNOLOGY Cardiolipin <0.5 <=19.9 APL 03/16 [place] IgA /2019 [facility] IMMUNOLOGY Cardiolipin <1.6 <=19.9 GPL 03/16 [place] IgG /2019 [facility] IMMUNOLOGY Cardiolipin 0.8 <=19.9 MPL 03/16 [place] IgM /2019 [facility] IMMUNOLOGY Homocyst Tot 16.5 3.7 - 13.9 03/[place] [facility] IMMUNOLOGY Albumin % 51.0 55.8 - 03/16 [place] 66.1 [facility] IMMUNOLOGY Alpha 1 % 8.6 2.8 - 4.9 03/16 [place] [facility] IMMUNOLOGY Alpha 2 % 14.6 7.0 - 11.9 03/16 [place] [facility] IMMUNOLOGY Beta % 12.4 7.8 - 13.7 03/16 [place] [facility] IMMUNOLOGY Gamma % 13.4 11.1 - 03/16 [place] 18.7 [facility] IMMUNOLOGY Albumin 3.83 3.57 - 03/16 [place] (SPE) 5.55 [facility] IMMUNOLOGY Alpha 1 Glob 0.65 0.18 - 03/16 [place] 0.41 [facility] IMMUNOLOGY Alpha 2 Glob 1.10 0.45 - 03/16 [place] 1.00 [facility] IMMUNOLOGY Beta Glob 0.93 0.50 - 03/16 [place] 1.15 [facility] IMMUNOLOGY Gamma Glob 1.01 0.71 - 03/16 [place] 1.57 [facility] IMMUNOLOGY Tot Prot 7.5 6.4 - 8.4 03/16 [place] (SPE) /2019 [facility] IMMUNOLOGY SPE Interp Serum 03/16 [facility] protein /2019 [facility] electropho Center resis demonstrat es a small peak (0.30 g/dL) in the gamma globulin distributi on curve. There is also a elevation of alpha-1 and alpha-2 globulin fractions. Total protein is within the reference range. Concurrent serum immunofixa tion demonstrat es an IgM-kappa monoclonal immunoglob ulin (see separate report). The electronic medical record has been reviewed for relevant clinical informatio n. I have personally reviewed the test results and concur with the resident's interpreta tion. CPT 17152-LW IMMUNOLOGY [place]as Free 110.41 3.30 - 03/16 [facility] Light Chains 19.40 [facility] IMMUNOLOGY Lambda Free 40.85 5.70 - 03/16 [facility] Light Chains 26.30 [facility] IMMUNOLOGY [place]as/Lambda 2.70 0.26 - 03/16 [facility] Free Light 1.65 [facility] Chains Ratio [place] IMMUNOLOGY CMV IgG Reactive Non 03/16 [facility] *ABN* Reactive [facility] (03/16/19 7:10 AM) [place] IMMUNOLOGY EBV VCA IgG >8.0 <=0.8 AI 03/16 [facility] /2019 [facility] IMMUNOLOGY HIV Ag/Ab Negative Negative 03/16 [facility] 4th Gen *NA* [facility] (03/16/19 7:10 AM) [place] IMMUNOLOGY Hep A Tot Positive Negative 03/16 [facility] *NA* /2019 [facility] (03/16/19 7:10 AM) [place] IMMUNOLOGY Hep Bs Ab <3.1 <=7.4 03/16 [facility] mIU/mL [facility] IMMUNOLOGY Hep B Core Negative Negative 03/16 [facility] Ab *NA* [facility] (03/16/19 7:10 AM) [place] IMMUNOLOGY Hep Bs Ag Negative Negative 03/16 [place] *NA* /2019 [facility] (03/16/19 7:10 AM) [place] IMMUNOLOGY Hep C Ab Negative Negative 03/16 [facility] *NA* [facility] (03/16/19 7:10 AM) [place] IMMUNOLOGY HSV 2 IgG <0.2 <=0.8 AI 03/16 [facility] /2019 [facility] IMMUNOLOGY HSV 1 IgG >8.0 <=0.8 AI 03/[address] IMMUNOLOGY T-Spot.TB Negative Negative 03/16 [facility] (03/16/19 7:10 AM) /2019 Medica l [place] IMMUNOLOGY Treponemal Non-Reactive Non 03/16 [place] *NA* /2019 Medical (03/16/19 7:10 AM) Center IMMUNOLOGY Varicella <0.2 <=0.8 AI 03/16 [facility] IgG [facility] IMMUNOLOGY Mumps IgG 5.1 <=0.8 AI 03/[address] IMMUNOLOGY Rubella IgG <0.2 >=10.0 03/16 [facility] IU/mL [facility] IMMUNOLOGY Rubeola IgG 2.0 <=0.8 AI 03/[address] IMMUNOLOGY KAREN Ser A distinct 03/16 [facility] Pattern monoclonal Medical band is Center present in the IgM izabella with a correspond ing faint band in the kappa light chain izabella. The polyclonal gamma globulin background is preserved in all lanes. IMMUNOLOGY KAREN Ser The 03/16 [facility] Interp immunofixa /[facility] electropho resis results (see pattern descriptio n) are consistent with monoclonal gammopathy of IgM-kappa isotype. Preservati on of diffusely staining immunoreac tivity indicates that the production of polyclonal immunoglob ulins is not suppressed . Relevant medical informatio n in the EMR was reviewed. I have personally reviewed the test results and concur with the resident's interpreta tion. CPT 90191-BT LIPIDS Trig 138 <=149 03/16 [facility] mg/dL [facility] LIPIDS Chol 183 <=199 03/16 [facility] mg/dL [address] [place] [address] LIPIDS HDL 40 >=61 mg/dL 03/[address] LIPIDS CHD Risk 4.58 4.00 - 03/16 [facility] 7.30 [facility] LIPIDS LDL 115 <=99 mg/dL 03/16 [facility] (Calculated) [facility] LIPIDS VLDL 28 03/[address] PARASITOLOG Strongyloide Negative Negative 03/16 [place] Antibodies Comment: Medical SEROLOGY Performed At: [facility]
[address] [place], [place] [id number]<br/ >Brian Morales MD Ph:[phone] PARATHYROID PTH Intact 579.6 18.4 - 03/16 [facility] PROFILE 80.1 [facility] SPECIAL Nicotine Lvl None 03/16 Result [facility] CHEMISTRY Detected Comment: This Medical test was Center developed and its performance characteristi cs
determ ined by [facility]. It has not been cleared or
approv ed by the Food and Drug Administratio n.
Nicoti ne levels greater than 2.0 are consistent with the
use of tobacco or tobacco cessation products. SPECIAL Cotinine Lvl None 03/16 Result [facility] CHEMISTRY Comment: This Medical test was Center developed and its performance characteristi cs
determ ined by [facility]. It has not been cleared or
approv ed by the Food and Drug Administratio n.
Cotini ne levels greater than 20.0 are consistent with the
use of tobacco or tobacco cessation products.<br/ >Performed At: [facility]
[address] [place], [place] [id number]<br/ >Brian Morales MD Ph:[phone] SPECIAL Hgb A1C 6.1 <=5.6 % 03/16 [facility] CHEMISTRY /[address] [place] [address] SPECIAL PSA 1.34 0.00 - 03/16 [facility] CHEMISTRY 4.00 [facility] URINE AND UA WBC 1 0 - 5 03/16 [facility] STOOL [address] URINE AND UA RBC 1 0 - 2 03/16 [facility] STOOL [address] URINE AND UA Color Yellow Yellow 03/16 [facility] *NA* [facility] (03/16/19 7:10 AM) [place] URINE AND UA Turbidity Clear Clear 03/16 [facility] (03/16/19 7:10 AM) Medica l [place] URINE AND UA Spec Grav 1.010 <=1.030 03/16 [facility] STOOL [address] URINE AND UA pH 6.0 5.0 - 8.0 03/16 [facility] STOOL [address] URINE AND UA Protein 100 mg/dL Negative 03/16 [facility] STOOL mg/dL [address] [place] [address] URINE AND UA Glucose 100 mg/dL Negative 03/16 [facility] mg/dL [address] [place] [address] URINE AND UA Ketones Negative Negative 03/16 [facility] *NA* [facility] (03/16/19 7:10 AM) [place] URINE AND UA Bili Negative Negative 03/16 [facility] *NA* [facility] (03/16/19 7:10 AM) [place] URINE AND UA Blood Trace Negative 03/16 [facility] *ABN* /2019 Medical (03/16/19 7:10 AM) [place] URINE AND UA 0.2 0.1 - 1.0 03/16 [facility] Urobilinogen /[address] [place] [address] URINE AND UA Nitrite Negative Negative 03/16 [facility] (03/16/19 7:10 AM) [facility] URINE AND UA Leuk Est Negative Negative 03/16 [facility] (03/16/19 7:10 AM) [facility] URINE AND UA Sq Epi None Seen Few 03/16 [facility] (03/16/19 7:10 AM) /2019 [facility] URINE CHEM U Creatinine 74.20 03/[address] URINE CHEM U Alb 892.0 03/[address] URINE CHEM U Alb/Crea 1202.2 <=30.0 03/16 [facility] mg/g [address] [place] [address] URINE CHEM U Creatinine 74.20 03/[address] URINE CHEM U Protein 149.5 03/[address] URINE CHEM U Prot/Creat 2.01 03/[address] URINE CHEM U Creatinine 74.20 03/[address] URINE CHEM U Alb 892.0 03/[address] URINE CHEM U Alb/Crea 1202.2 <=30.0 03/16 [facility] mg/g /[address] [place] [address] VIRAL - T cruzi Non Non 03/16 Result [facility] SEROLOGY (Chagas) Ab Reactive Reactive Comment: Test Med ical performed Center with Hall Prism Chagas assay.

Performe d At: [facility]
[address] [place] [address] [address] [place], [place] [id number]<br/ >Nick Burger PhD Ph:[phone] VIRAL - W Nile Ab Negative Negative 03/16 Result [facility] SEROLOGY IgG Comment: No Medical detectable [place] West Nile Virus IgG Antibody. If a recent
in fection is suspected, another specimen should be
submit nicko for testing within 7-14 days. VIRAL - W Nile Ab Negative Negative 03/16 Result [facility] SEROLOGY IgM Comment: No Medical detectable Center West Nile Virus IgM Antibody. If a recent
in fection is suspected, another specimen should be
submit nicko for testing within 7-14 days.
Per formed At: [facility]
[address] [place], [place] [id number]<br/ >Brian Morales MD Ph:[phone] IMMUNOLOGY 24Hr UPE 1444 06/29 [facility] IMMUNOLOGY 24Hr UPE Int Urine 06/29 [facility] protein [facility] electropho Center resis revealed presence of all protein fractions with a dominant albumin fraction consistent with nonselecti ve glomerular proteinuri a. There is no evidence of a paraprotei n. However, if monoclonal gammopathy is a clinical considerat ion, recommend urine immunofixa tion electropho resis to further evaluate for the presence of free monoclonal light chains. Relevant medical informatio n in the EMR was reviewed. I have personally reviewed the test results and concur with the resident's interpreta tion. CPT: 06710-PA IMMUNOLOGY 24 UPE Tot 2725 06/29 [facility] Vol [facility] IMMUNOLOGY 24 UPE Tot 53 06/29 [facility] Prot [facility] CHEM PANEL LDH 150 98 - 192 06/23 [facility] CHEM PANEL P-7-Bncjhage 9.6 1.0 - 2.3 06/23 [place] b [facility] HEMATOLOGY MCHC 32.9 32.0 - 06/23 [place] 36.0 [facility] HEMATOLOGY Platelet 250 133 - 450 06/23 [facility] HEMATOLOGY RDW 16.3 11.5 - 06/23 [place] 14.5 [facility] HEMATOLOGY MPV 9.1 7.4 - 10.4 06/23 [facility] HEMATOLOGY Hgb 13.2 14.0 - 06/23 [place] 18.0 [facility] HEMATOLOGY Hct 40.2 42.0 - 06/23 54.0 [facility] HEMATOLOGY MCV 87.8 80.0 - 06/23 [place] 94.0 [facility] HEMATOLOGY MCH 28.9 27.0 - 06/23 [place] 31.0 [facility] HEMATOLOGY WBC 9.9 3.7 - 10.4 06/23 [facility] HEMATOLOGY RBC 4.58 4.70 - 06/23 [place] 6.10 [facility] HEMATOLOGY Eosinophils 0.2 0.0 - 0.5 06/23 [place] # /2018 [facility] HEMATOLOGY Basophils # 0.1 0.0 - 0.2 06/23 [place] [facility] HEMATOLOGY Basophils 0.7 0.0 - 1.0 06/23 [facility] HEMATOLOGY Neutrophils 6.6 1.5 - 8.1 06/23 [place] # /2018 [facility] HEMATOLOGY Lymphocytes 2.4 1.0 - 5.5 06/23 [place] # /2018 [facility] HEMATOLOGY Monocytes # 0.6 0.0 - 0.8 06[facility] HEMATOLOGY Segs 66.7 45.0 - 06/23 [place] 75.0 [facility] HEMATOLOGY Monocytes 6.3 2.0 - 12.0 06/23 [facility] HEMATOLOGY Lymphocytes 24.3 20.0 - 06/23 40.0 [facility] HEMATOLOGY Eosinophils 2.0 0.0 - 4.0 06/23 a s [facility] IMMUNOLOGY Vergas/Lambda 2.17 0.26 - 06/23 [facility] Free Light 1.65 [facility] Chains [facility] IMMUNOLOGY [place]as Free 92.69 3.30 - 06/23 [facility] Light Chains 19.40 [facility] IMMUNOLOGY Lambda Free 42.69 5.70 - 06/23 [facility] Light Chains 26.30 [facility] IMMUNOLOGY U KAREN Interp Urine 06/23 [facility] immunofixa [facility] tion Center electropho resis revealed spillage of polyclonal immunoglob ulins mainly of IgG and IgA isotypes. There is no spillage of monoclonal immunoglob ulins or free monoclonal light chains. Relevant medical informatio n in the EMR was reviewed. I have personally reviewed the test results and concur with the resident's interpreta tion. CPT 82152-[id number] IMMUNOLOGY U KAREN Diffusely 06/23 [facility] Pattern staining Medical immunoreac Center tivity is present mainly in IgG, IgA, kappa and lambda lanes. No monoclonal bands are seen. REFERENCE Test Name HLA TYPING 04/06 [facility] LAB RESULTS RESULTS /2018 [facility] BLOOD BANK ABO/RH O POS 04/06 [place] RESULTS Confirm [facility] ANEMIA Ferritin Lvl 213 22 - 275 04/06 [place] STUDY /2018 [facility] ANEMIA UIBC 261 110 - 370 04/06 [facility] [place] [facility] ANEMIA % Satur Fe 15 12 - 57 04/06 [facility]2018 [facility] ANEMIA Iron 46 45 - 160 04/06 [facility]2018 [facility] ANEMIA TIBC 307 228 - 428 04/06 [facility]2018 [facility] BLOOD BANK OP ABORh Int O POS 04/06 [facility] RESULTS [facility] CHEM PANEL Vitamin D, 36.8 30.0 - 04/06 [facility] 25-OH, Total 100.0 [facility] CHEM PANEL Uric Acid 7.3 3.8 - 8.0 04/06 [facility] CHEM PANEL Phosphorus 3.4 2.5 - 4.5 04/06 [facility]2018 [facility] CHEM PANEL Magnesium 2.0 1.8 - 2.4 04/06 [facility] Lvl [facility] CHEM PANEL C-Peptide 8.17 0.48 - 04/06 [facility] 5.05 [facility] CHEM PANEL A/G Ratio 0.9 0.7 - 1.6 04/06 [facility]2018 [facility] CHEM PANEL B/C Ratio 9 6 - 25 04/06 [facility]2018 [facility] CHEM PANEL AGAP 12.4 10.0 - 02 [facility] 20.0 [facility] CHEM PANEL Globulin 4.2 2.7 - 4.2 04/06 [facility]2018 [facility] CHEM PANEL eGFR 14 04/06 [facility] Comment: The Medical eGFR is Center calculated using the CKD-EPI formula. In most young, healthy individuals the eGFR will be >90 mL/min/1.73m2 . The eGFR declines with age. An eGFR of 60-89 may be normal in some populations, particularly the elderly, for whom the CKD-EPI formula has not been extensively validated. Use of the eGFR is not recommended in the following populations:< br/>
Mayra viduals with unstable creatinine concentration s, including patients and those with serious co-morbid conditions.<b r/>
Patie nts with extremes in muscle mass or diet.

The data above are obtained from the National Kidney Disease Education Program (NKDEP) which additionally recommends that when the eGFR is used in patients with extremes of body mass index for purposes of drug dosing, the eGFR should be multiplied by the estimated BMI. CHEM PANEL ALT 12 0 - 65 02 [facility] CHEM PANEL Alk Phos 70 39 - 136 04/06 [facility] CHEM PANEL AST 8 0 - 37 04/06 [facility] CHEM PANEL Albumin Lvl 3.7 3.5 - 5.0 04/06 [facility] CHEM PANEL Bili Total 0.3 0.2 - 1.3 04/06 [facility] CHEM PANEL Glucose Lvl 83 70 - 99 04/06 [facility] CHEM PANEL Sodium Lvl 137 135 - 145 04/06 [facility] CHEM PANEL BUN 35 7 - 22 04/06 [facility] CHEM PANEL Creatinine 4.10 0.50 - 04/06 [facility] Lvl 1.40 /2018 [facility] CHEM PANEL CO2 25 24 - 32 04/06 [facility] CHEM PANEL Calcium Lvl 9.7 8.5 - 10.5 04/06 [facility] CHEM PANEL Potassium 4.4 3.5 - 5.1 04/06 [facility] CHEM PANEL Chloride Lvl 104 95 - 109 04/06 [facility] CHEM PANEL Total 7.9 6.4 - 8.4 04/06 [facility] DRUG SCREEN Opiate Qnt Negative Negative 04/06 Result Comment: Medical OPIATES Center ConfirmCutoff :10 ng/mL Value:0 DRUG SCREEN Phencyclidin Negative Negative 04/06 [place] Comment: Medical ScrCutoff:25 Center ng/mL DRUG SCREEN Kaitlin Scr Negative Negative 04/06 Result Comment: Medical ScrCutoff:20 Center ng/mL DRUG SCREEN Methadone Negative Negative 04/06 Result Comment: Medical ScrCutoff:20 Center ng/mL DRUG SCREEN Cocaine Scr Negative Negative 04/06 Result Comment: Medical ScrCutoff:20 Center ng/mL DRUG SCREEN Cannab Scr Negative Negative 04/06 Result Comment: Medical ScrCutoff:1 Center ng/mL DRUG SCREEN Amph Scr Negative Negative 04/06 Result Comment: Medical ScrCutoff:20 Center ng/mL DRUG SCREEN Opiate Scr Positive Negative 04/06 Result [facility] Comment: Medical ScrCutoff:20 Center ng/mL DRUG SCREEN 6-Acetylmor Negative Negative 04/06 Result [facility] Comment: Medical ScrCutoff:300 Center ng/mL DRUG SCREEN Benzodiaz Negative Negative 04/06 Result [facility] Comment: Medical ScrCutoff:20 Center ng/mL HEMATOLOGY Basophils # 0.1 0.0 - 0.2 02 [facility] HEMATOLOGY Segs 68.2 45.0 - 02 [facility] 75.0 [facility] HEMATOLOGY Lymphocytes 20.5 20.0 - 02 [facility] 40.0 [facility] HEMATOLOGY Neutrophils 6.0 1.5 - 8.1 04/06 [facility] HEMATOLOGY Basophils 0.6 0.0 - 1.0 04/06 [facility] HEMATOLOGY Lymphocytes 1.8 1.0 - 5.5 04/06 [facility] HEMATOLOGY Eosinophils 3.2 0.0 - 4.0 04/06 [facility] HEMATOLOGY Monocytes 7.5 2.0 - 12.0 04/06 [facility] HEMATOLOGY Eosinophils 0.3 0.0 - 0.5 04/06 [facility] HEMATOLOGY Monocytes # 0.7 0.0 - 0.8 04/06 [facility] HEMATOLOGY Hgb 13.3 14.0 - 04/06 [facility] 18.0 [facility] HEMATOLOGY Hct 41.1 42.0 - 02 54.0 [facility] HEMATOLOGY MCV 88.4 80.0 - 0205 94.0 2019 [facility] HEMATOLOGY MCH 28.7 27.0 - 02 [facility] 31.0 2019 [facility] HEMATOLOGY RBC 4.65 4.70 - 0205 6.10 [facility] HEMATOLOGY RDW 14.6 11.5 - 02 [facility] 14.5 [facility] HEMATOLOGY MCHC 32.5 32.0 - 02 [facility] 36.0 2019 [facility] HEMATOLOGY Platelet 238 133 - 450 02 [facility] HEMATOLOGY MPV 9.0 7.4 - 10.4 04/06 [facility] HEMATOLOGY WBC 8.8 3.7 - 10.4 02 [place] /2018 [facility] HEMATOLOGY INR 0.96 0.85 - 04/06 [place] 1.17 /2018 [facility] HEMATOLOGY PT 12.6 12.0 - 02 [place] 14.7 /2018 [facility] HEMATOLOGY PTT 34.7 22.9 - 04/06 [facility] 35.8 /2018 [facility] IMMUNOLOGY Treponemal Non-Reactive Non 04/06 [place] *NA* [facility] (04/06/18 8:50 AM) [place] IMMUNOLOGY Varicella <0.91 0.00 - 04/06 Result [facility] IgM 0.90 /2018 Comment: [facility] Negative <0.91
Borderline 0.91 - 1.09
Positive >1.09
Per formed At: [facility]
[address] [place], [place] [id number]<br/ >Brian Morales MD Ph:[phone] IMMUNOLOGY Varicella <0.2 <=0.8 AI 04/06 [facility] IgG [facility] IMMUNOLOGY Hep Bs Ag Negative Negative 04/06 [facility] *NA* /2018 [facility] (04/06/18 8:50 AM) [place] IMMUNOLOGY HSV 1 IgG >8.0 <=0.8 AI 04/06 [facility] IMMUNOLOGY HSV 2 IgG <0.2 <=0.8 AI 04/06 [facility] IMMUNOLOGY Lambda Free 66.41 5.70 - 02 [facility] Light Chains 26.30 [facility] IMMUNOLOGY Vergas/Lambda 1.66 0.26 - 02 [facility] Free Light 1.65 [facility] Chains Ratio [place] IMMUNOLOGY Vergas Free 110.34 3.30 - 02 [facility] Light Chains 19.40 /2018 [facility] IMMUNOLOGY Hep C Ab Negative 04/06 [facility] *NA* [facility] (04/06/18 8:50 AM) [place] IMMUNOLOGY T-Spot.TB Negative Negative 04/06 [facility] (04/06/18 8:50 AM) [facility] IMMUNOLOGY SPE Interp Serum 04/06 [facility] protein [facility] electropho Center resis demonstrat es a small peak (0.22 g/dL) in the gamma globulin distributi on curve. Concurrent serum immunofixa tion demonstrat es an IgM-kappa monoclonal immunoglob ulin (see separate report). Total protein is within the reference range. Serum protein electropho resis demonstrat es otherwise normal distributi on of the main protein fractions. The electronic medical record has been reviewed for relevant clinical informatio n. I have personally reviewed the test results and concur with the resident's interpreta tion. CPT 63389-[id number] IMMUNOLOGY Beta Glob 0.99 0.50 - 0205 [place] 1.15 [facility] IMMUNOLOGY Gamma Glob 1.28 0.71 - 04/06 [place] 1.57 [facility] IMMUNOLOGY Tot Prot 7.9 6.4 - 8.4 04/06 [facility] (SPE) /2018 [facility] IMMUNOLOGY Albumin 4.25 3.57 - 02 [facility] (SPE) 5.55 [facility] IMMUNOLOGY Gamma % 16.2 11.1 - 02 [place] 18.7 /2018 [facility] IMMUNOLOGY Alpha 1 Glob 0.43 0.18 - 0205 [place] 0.41 [facility] IMMUNOLOGY Alpha 2 Glob 0.96 0.45 - 0205 [place] 1.00 /2018 [facility] IMMUNOLOGY Alpha 1 % 5.4 2.8 - 4.9 04/06 [facility] IMMUNOLOGY Albumin % 53.8 55.8 - 04/06 [place] 66.1 /2018 [facility] IMMUNOLOGY Beta % 12.5 7.8 - 13.7 04/06 [facility] IMMUNOLOGY Alpha 2 % 12.1 7.0 - 11.9 04/06 [facility] IMMUNOLOGY EBV VCA IgM <0.2 <=0.8 AI 04/06 [facility] IMMUNOLOGY EBV VCA IgG >8.0 <=0.8 AI 04/06 [facility] IMMUNOLOGY Hep Bs Ab 5.2 <=7.4 04/06 [facility] mIU/mL /2018 [facility] IMMUNOLOGY Hep B Core Negative Negative 04/06 [facility] Ab *NA* [facility] (04/06/18 8:50 AM) [place] IMMUNOLOGY HIV Ag/Ab Negative Negative 04/06 [facility] 4th Gen *NA* [facility] (04/06/18 8:50 AM) [place] IMMUNOLOGY KAREN Ser The 04/06 [facility] Interp immunofixa /2018 [facility] tion Center electropho resis results (see pattern descriptio n) are consistent with monoclonal gammopathy of IgM-kappa isotype. Preservati on of diffusely staining immunoreac tivity indicates that the production of polyclonal immunoglob ulins is not suppressed . Relevant medical informatio n in the EMR was reviewed. I have personally reviewed the test results and concur with the resident's interpreta tion. CPT 29983-TO IMMUNOLOGY KAREN Ser A distinct 04/06 [facility] Pattern monoclonal /2018 Medical band is Center present in the IgM izabella with a correspond ing faint band in the kappa light chain iz[place]. The polyclonal gamma globulin background is preserved in all lanes. IMMUNOLOGY CMV IgG Reactive Non 04/06 [facility] *ABN* Reactive /2018 Medical (04/06/18 8:50 AM) [place] IMMUNOLOGY CMV IgM 0.3 04/06 [facility] LIPIDS VLDL 36 04/06 [facility] LIPIDS LDL 132 <=99 mg/dL 04/06 [facility] (Calculated) [facility] LIPIDS Chol 199 <=199 04/06 [facility] mg/dL [facility] LIPIDS Trig 182 <=149 04/06 [facility] mg/dL [facility] LIPIDS HDL 31 >=61 mg/dL 04/06 [facility] LIPIDS CHD Risk 6.42 4.00 - 04/06 [facility] 7.30 [facility] MOLECULAR HBV DNA <1.3 04/06 [facility] DIAGNOSTIC Log10 /2018 [facility] MOLECULAR Hep B PCR Not Detected 04/06 [facility] s DIAGNOSTIC Qnt (04/06/18 8:50 AM) [facility] PARASITOLOG Strongyloide Negative Negative 04/06 [place] Antibodies /2018 Comment: Medical SEROLOGY Performed At: [facility]
[address], [place] [id number]<br/ >Brian Morales MD Ph:[phone] PARATHYROID PTH Intact 180.7 18.4 - 04/06 [facility] PROFILE 80.1 [facility] SPECIAL Hgb A1C 6.5 <=5.6 % 04/06 [facility] CHEMISTRY /2018 [facility] SPECIAL PSA 1.00 0.00 - 04/06 [facility] CHEMISTRY 4.00 [facility] SPECIAL Nicotine Lvl None 04/06 Result [facility] CHEMISTRY Detected Comment: This Medical test was Center developed and its performance characteristi
determ ined by [facility]. It has not been cleared or
approv ed by the Food and Drug Administratio n.
Nicoti ne levels greater than 2.0 are consistent with the
use of tobacco or tobacco cessation products. SPECIAL Cotinine Lvl None 04/06 Result [facility] CHEMISTRY Comment: This Medical test was Center developed and its performance characteristi cs
determ ined by [facility]. It has not been cleared or
approv ed by the Food and Drug Administratio n.
Cotini ne levels greater than 20.0 are consistent with the
use of tobacco or tobacco cessation products.<br/ >Performed At: [facility]
[address] [place], [place] [id number]<br/ >Brian Morales MD Ph:[phone] URINE AND UA <=1.0 0.1 - 1.0 04/06 [facility] Urobilinogen mg/dL [facility] URINE AND UA Sq Epi None Seen 04/06 [facility] URINE AND UA Turbidity Clear Clear 04/06 [facility] (04/06/18 8:50 AM) [facility] URINE AND UA Color Yellow Yellow 04/06 [facility] *NA* [facility] (04/06/18 8:50 AM) [place] URINE AND UA pH 5.5 5.0 - 8.0 04/06 [facility] URINE AND UA Spec Grav 1.009 <=1.030 04/06 [facility] URINE AND UA WBC 1 0 - 5 04/06 [facility] URINE AND UA Leuk Est Negative Negative 04/06 [facility] (04/06/18 8:50 AM) [facility] URINE AND UA Nitrite Negative Negative 04/06 [facility] (04/06/18 8:50 AM) [facility] URINE AND UA Ketones Negative Negative 04/06 [facility] mg/dL mg/dL [facility] URINE AND UA Glucose Negative Negative 04/06 [facility] mg/dL mg/dL [facility] URINE AND UA Protein 100 mg/dL Negative 04/06 [facility] STOOL mg/dL [facility] URINE AND UA Blood Trace Negative 04/06 [facility] STOOL *ABN* /2018 [facility] (04/06/18 8:50 AM) [place] URINE AND UA Bili Negative Negative 04/06 [facility] STOOL *NA* /2018 [facility] (04/06/18 8:50 AM) [place] URINE CHEM U Microalb 638.0 04/06 [facility] [address] [place] [address] URINE CHEM U Protein 117.7 04/06 [facility] [address] [place] [address] URINE CHEM U Prot/Creat 0.78 04/06 [facility] URINE CHEM U Creatinine 151.00 04/06 [facility] URINE AND UA 0.2 0.1 - 1.0 11/03 [facility] Urobilinogen /2016 [place] URINE AND UA Nitrite Negative Negative 11/03 [facility] (11/03/16 11:40 AM) [place] URINE AND UA Leuk Est Negative Negative 11/03 [facility] (11/03/16 11:40 AM) [place] URINE AND UA pH 5.5 5.0 - 8.0 11/03 [facility] [place] URINE AND UA Protein 100 mg/dL Negative 11/03 [facility] mg/dL [place] URINE AND UA Glucose Negative Negative 11/03 [facility] (11/03/16 11:40 AM) [place] URINE AND UA Blood Moderate Negative 11/03 [facility] *ABN* /2016 [place] (11/03/16 11:40 AM) URINE AND UA Ketones Negative Negative 11/03 [facility] *NA* /2016 [place] (11/03/16 11:40 AM) URINE AND UA Bili Negative Negative 11/03 [facility] *NA* /2016 [place] (11/03/16 11:40 AM) URINE AND UA Color Yellow Yellow 11/03 [facility] *NA* /2016 [place] (11/03/16 11:40 AM) URINE AND UA Spec Grav 1.020 <=1.030 11/03 [facility] [place] URINE AND UA Turbidity Clear Clear 11/03 [facility] (11/03/16 11:40 AM) [place] URINE AND UA Sq Epi Rare /LPF Few /LPF 11/03 [facility] [place] URINE AND UA Bacteria Occasional None Seen 11/03 [facility] /HPF /HPF [place] URINE AND UA WBC 0-2 /HPF None Seen 11/03 [facility] /HPF [place] URINE AND UA RBC 0-2 /HPF 0 - 2 09/ MH STOOL /2016 [place] URINE AND UA Hyal Cast 0-2 0 - 2 09/ MH [facility] (11/03/16 11:40 AM) /2016 [place] CARDIAC Troponin-I <0.02 0.00 - 09 MH ENZYMES 0.40 [place] CHEM PANEL Magnesium 1.5 1.8 - 2.4 11/03 MH Lvl [place] CHEM PANEL Phosphorus 2.0 2.5 - 4.5 11/03 [place] CHEM PANEL eGFR 23 11/03 Result Comment: The [place] eGFR is calculated using the CKD-EPI formula. In most young, healthy individuals the eGFR will be >90 mL/min/1.73m2 . The eGFR declines with age. An eGFR of 60-89 may be normal in some populations, particularly the elderly, for whom the CKD-EPI formula has not been extensively validated. Use of the eGFR is not recommended in the following populations:< br/>
Mayra viduals with unstable creatinine concentration s, including patients and those with serious co-morbid conditions.<b r/>
Patie nts with extremes in muscle mass or diet.

The data above are obtained from the National Kidney Disease Education Program (NKDEP) which additionally recommends that when the eGFR is used in patients with extremes of body mass index for purposes of drug dosing, the eGFR should be multiplied by the estimated BMI. CHEM PANEL ASPARTATE 11 0 - 37 11/03 MH TRANSAMINASE [place] CHEM PANEL Bili Total 0.5 0.2 - 1.3 11/03 [place] CHEM PANEL Total 8.3 6.4 - 8.4 11/03 MH Protein [place] CHEM PANEL CO2 22 24 - 32 11/03 [place] CHEM PANEL Calcium Lvl 8.7 8.5 - 10.5 11/03 [place] CHEM PANEL Potassium 3.9 3.5 - 5.1 11/03 MH Lvl [place] CHEM PANEL Chloride Lvl 108 95 - 109 11/03 [place] CHEM PANEL Creatinine 2.82 0.50 - 09 MH Lvl 1.40 [place] CHEM PANEL Sodium Lvl 139 135 - 145 11/03 [place] CHEM PANEL BUN 30 7 - 22 / [place] CHEM PANEL Glucose Lvl 137 70 - 99 / [place] CHEM PANEL Albumin Lvl 3.6 3.5 - 5.0 11/03 [place] CHEM PANEL Alk Phos 73 39 - 136 11/03 [place] CHEM PANEL ALANINE 16 0 - 65 09/ MH AMINOTRANS [place] RASE CHEM PANEL A/G Ratio 0.8 0.7 - 1.6 11/03 [place] CHEM PANEL B/C Ratio 11 6 - 25 11/03 [place] CHEM PANEL Globulin 4.7 2.7 - 4.2 11/03 [place] CHEM PANEL AGAP 12.9 10.0 - 09 MH 20.0 [place] CHEM PANEL Lipase Lvl 144 73 - 393 11/03 [place] HEMATOLOGY Segs 75.6 45.0 - 11/03 MH 75.0 [place] HEMATOLOGY Basophils # 0.1 0.0 - 0.2 11/03 [place] HEMATOLOGY Monocytes # 0.9 0.0 - 0.8 11/03 [place] HEMATOLOGY Eosinophils 0.2 0.0 - 0.5 / MH /2016 [place] HEMATOLOGY Eosinophils 1.8 0.0 - 4.0 11/03 [place] HEMATOLOGY Basophils 0.6 0.0 - 1.0 11/03 [place] HEMATOLOGY Lymphocytes 14.5 20.0 - 11/03 MH 40.0 [place] HEMATOLOGY Monocytes 7.5 2.0 - 12.0 11/03 [place] HEMATOLOGY Segs-Bands # 9.4 1.5 - 8.1 11/03 [place] HEMATOLOGY Lymphocytes 1.8 1.0 - 5.5 09/ MH /2016 [place] HEMATOLOGY MCV 88.5 80.0 - 11/03 MH 94.0 [place] HEMATOLOGY MCH 29.3 27.0 - 09 MH 31.0 [place] HEMATOLOGY Hct 40.7 42.0 - 09 MH 54.0 [place] HEMATOLOGY MCHC 33.2 32.0 - 09 MH 36.0 [place] HEMATOLOGY RDW 15.1 11.5 - 09 MH 14.5 /2017 [place] HEMATOLOGY Hgb 13.5 14.0 - 11/03 MH 18.0 [place] HEMATOLOGY WBC X 10x3 12.5 3.7 - 10.4 11/03 [place] HEMATOLOGY RBC X 10x6 4.60 4.70 - 09/ MH 6.10 [place] HEMATOLOGY MPV 8.7 7.4 - 10.4 11/03 [place] HEMATOLOGY Platelet 278 133 - 450 11/03 [place] CHEM PANEL B/C Ratio 13 6 - 25 09/09 [place] CHEM PANEL Globulin 3.9 2.0 - 4.0 09/09 [place] CHEM PANEL A/G Ratio 0.9 0.7 - 1.6 09/09 [place] CHEM PANEL AGAP 8.6 10.0 - 09/09 MH 20.0 [place] CHEM PANEL eGFR 27 09/09 Result Comment: The [place] eGFR is calculated using the CKD-EPI formula. In most young, healthy individuals the eGFR will be >90 mL/min/1.73m2 . The eGFR declines with age. An eGFR of 60-89 may be normal in some populations, particularly the elderly, for whom the CKD-EPI formula has not been extensively validated. Use of the eGFR is not recommended in the following populations:< br/>
Mayra viduals with unstable creatinine concentration s, including patients and those with serious co-morbid conditions.<b r/>
Patie nts with extremes in muscle mass or diet.

The data above are obtained from the National Kidney Disease Education Program (NKDEP) which additionally recommends that when the eGFR is used in patients with extremes of body mass index for purposes of drug dosing, the eGFR should be multiplied by the estimated BMI. CHEM PANEL Sodium Lvl 142 135 - 145 09/09 [place] CHEM PANEL Potassium 4.6 3.5 - 5.1 09/09 MH Lvl [place] CHEM PANEL Creatinine 2.45 0.50 - 09/09 Lvl 1.40 [place] CHEM PANEL Chloride Lvl 110 95 - 109 09/09 [place] CHEM PANEL CO2 28 24 - 32 09/09 [place] CHEM PANEL Albumin Lvl 3.5 3.5 - 5.0 07/ /2015 [place] CHEM PANEL Alk Phos 60 39 - 136 09/09 [place] CHEM PANEL BUN 31 7 - 22 09/09 [place] CHEM PANEL Glucose Lvl 81 70 - 99 07 [place] CHEM PANEL Bili Total 0.4 0.2 - 1.3 07 [place] CHEM PANEL Total 7.4 6.4 - 8.4 07/ MH Protein /2015 [place] CHEM PANEL Calcium Lvl 8.5 8.5 - 10.5 07 [place] CHEM PANEL ALANINE 15 0 - 65 07 AMINOTRANSFE [place] RASE CHEM PANEL ASPARTATE 12 0 - 37 09/09 MH TRANSAMINASE [place] HEMATOLOGY Eosinophils 2.6 0.0 - 4.0 09/09 /2015 [place] HEMATOLOGY Lymphocytes 23.1 20.0 - 07 MH 40.0 [place] HEMATOLOGY Monocytes 9.4 2.0 - 12.0 09/09 [place] HEMATOLOGY Eosinophils 0.2 0.0 - 0.5 07/ MH # /2015 [place] HEMATOLOGY Basophils # 0.1 0.0 - 0.2 09/09 [place] HEMATOLOGY Basophils 0.8 0.0 - 1.0 09/09 /2015 [place] HEMATOLOGY Lymphocytes 1.8 1.0 - 5.5 07/ MH # /2015 [place] HEMATOLOGY Monocytes # 0.7 0.0 - 0.8 09/09 [place] HEMATOLOGY Segs-Bands # 5.0 1.5 - 8.1 09/09 [place] HEMATOLOGY Segs 64.1 45.0 - 07 MH 75.0 [place] HEMATOLOGY Platelet 193 133 - 450 07 [place] HEMATOLOGY MPV 8.5 7.4 - 10.4 09/09 [place] HEMATOLOGY RDW 17.0 11.5 - 07 MH 14.5 [place] HEMATOLOGY MCHC 32.5 32.0 - 07 MH 36.0 [place] HEMATOLOGY MCV 89.4 80.0 - 07 MH 94.0 [place] HEMATOLOGY RBC X 10x6 4.19 4.70 - 07 MH 6.10 [place] HEMATOLOGY MCH 29.1 27.0 - 09/09 MH 31.0 [place] HEMATOLOGY Hct 37.5 42.0 - 09/09 MH 54.0 [place] HEMATOLOGY Hgb 12.2 14.0 - 09/09 MH 18.0 [place] HEMATOLOGY WBC X 10x3 7.8 3.7 - 10.4 09/09 [place] RAPID Grp A Strep Negative Negative 09/09 Sc[facility] (09/10/15 1:55 PM) [place] URINE AND UA Nitrite Negative Negative 06/19 [facility] (06/20/15 11:22 AM) [place] and URINE AND UA 0.2 0.1 - 1.0 06/19 [facility] Urobilinogen /2015 [place] URINE AND UA Leuk Est Negative Negative 06/19 [facility] (06/20/15 11:22 AM) [place] and URINE AND UA RBC 0-2 /HPF 0 - 2 06/19 [facility] /2015 [place] URINE AND UA WBC 0-2 /HPF None Seen 06/19 [facility] /HPF /2015 [place] URINE AND UA Bacteria Few /HPF None Seen 06/19 [facility] /HPF /2015 [place] URINE AND UA Sq Epi Rare /LPF Few /LPF 06/19 STOOL [place] URINE AND UA Glucose Negative Negative 06/19 [facility] (06/20/15 11:22 AM) [place] and URINE AND UA Blood Negative Negative 06/19 [facility] (06/20/15 11:22 AM) [place] and URINE AND UA Ketones Negative Negative 06/19 [facility] *NA* /2015 [place] (06/20/15 11:22 AM) URINE AND UA Bili Negative Negative 06/19 [facility] *NA* /2015 [place] (06/20/15 11:22 AM) URINE AND UA Color Yellow Yellow 06/19 [facility] *NA* /2015 [place] (06/20/15 11:22 AM) URINE AND UA Turbidity Clear Clear 06/19 [facility] (06/20/15 11:22 AM) [place] and URINE AND UA pH 6.0 5.0 - 8.0 06/19 STOOL [place] URINE AND UA Spec Grav 1.010 <=1.030 06/19 STOOL [place] URINE AND UA Protein 30 mg/dL Negative 06/19 [facility] mg/dL /2015 [place] CARDIAC CK-MB INDEX <1.7 0.0 - 2.5 06/19 MH ENZYMES /2015 [place] CARDIAC Total CK 29 12 - 191 06/19 MH ENZYMES [place] CARDIAC Troponin-I <0.02 0.00 - 06/19 MH ENZYMES 0.40 [place] CARDIAC CK MB <0.5 0.5 - 3.6 06/19 MH ENZYMES [place] CHEM PANEL eGFR 27 06/19 Result Comment: The [place] eGFR is calculated using the CKD-EPI formula. In most young, healthy individuals the eGFR will be >90 mL/min/1.73m2 . The eGFR declines with age. An eGFR of 60-89 may be normal in some populations, particularly the elderly, for whom the CKD-EPI formula has not been extensively validated. Use of the eGFR is not recommended in the following populations:< br/>
Mayra viduals with unstable creatinine concentration s, including patients and those with serious co-morbid conditions.<b r/>
Patie nts with extremes in muscle mass or diet.

The data above are obtained from the National Kidney Disease Education Program (NKDEP) which additionally recommends that when the eGFR is used in patients with extremes of body mass index for purposes of drug dosing, the eGFR should be multiplied by the estimated BMI. CHEM PANEL A/G Ratio 0.7 0.7 - 1.6 06/19 [place] CHEM PANEL B/C Ratio 12 6 - 25 06/19 [place] CHEM PANEL Globulin 4.5 2.0 - 4.0 06/19 [place] CHEM PANEL ASPARTATE 12 0 - 37 06/19 MH TRANSAMINASE [place] CHEM PANEL AGAP 12.2 10.0 - 06/19 MH 20.0 /2016 [place] CHEM PANEL Sodium Lvl 139 135 - 145 06/19 [place] CHEM PANEL Potassium 4.2 3.5 - 5.1 06/19 MH Lvl /2015 [place] CHEM PANEL BUN 29 7 - 22 06/19 [place] CHEM PANEL Creatinine 2.47 0.50 - 06/19 MH Lvl 1.40 [place] CHEM PANEL ALANINE 23 0 - 65 06/19 MH AMINOTRANSFE /2015 [place] RASE CHEM PANEL Total 7.8 6.4 - 8.4 04 MH Protein [place] CHEM PANEL Calcium Lvl 9.0 8.5 - 10.5 06/19 [place] CHEM PANEL Bili Total 0.5 0.2 - 1.3 06/19 [place] CHEM PANEL CO2 28 24 - 32 06/19 [place] CHEM PANEL Chloride Lvl 103 95 - 109 06/19 [place] CHEM PANEL Glucose Lvl 134 70 - 99 06/19 [place] CHEM PANEL Alk Phos 57 39 - 136 06/19 [place] CHEM PANEL Albumin Lvl 3.3 3.5 - 5.0 06/19 [place] HEMATOLOGY Basophils 0.6 0.0 - 1.0 06/19 [place] HEMATOLOGY Lymphocytes 13.7 20.0 - 06/19 MH 40.0 [place] HEMATOLOGY Eosinophils 1.4 0.0 - 4.0 06/19 [place] HEMATOLOGY Monocytes 10.4 2.0 - 12.0 06/19 [place] HEMATOLOGY Basophils # 0.1 0.0 - 0.2 06/19 [place] HEMATOLOGY Eosinophils 0.2 0.0 - 0.5 06/19 MH # [place] HEMATOLOGY Segs-Bands # 8.3 1.5 - 8.1 06/19 [place] HEMATOLOGY Lymphocytes 1.5 1.0 - 5.5 06/19 MH [place] HEMATOLOGY Monocytes # 1.2 0.0 - 0.8 06/19 [place] HEMATOLOGY Segs 73.9 45.0 - 06/19 MH 75.0 [place] HEMATOLOGY MCH 28.3 27.0 - 06/19 MH 31.0 [place] HEMATOLOGY MCV 88.6 80.0 - 06/19 MH 94.0 [place] HEMATOLOGY RDW 13.4 11.5 - 06/19 MH 14. [place] HEMATOLOGY MCHC 31.9 32.0 - 06/19 MH 36.0 [place] HEMATOLOGY WBC X 10x3 11.3 3.7 - 10.4 06/19 [place] HEMATOLOGY Hct 39.5 42.0 - 06/19 MH 54.0 [place] HEMATOLOGY Hgb 12.6 14.0 - 04/20 MH 18.0 /2016 [place] HEMATOLOGY RBC X 10x6 4.46 4.70 - 06/19 6.10 /2016 [place] HEMATOLOGY Platelet 321 133 - 450 06/19 [place] HEMATOLOGY MPV 8.5 7.4 - 10.4 06/19 /2015 [place] HEMATOLOGY aPTT 32.0 22.9 - 06/19 35.8 /2016 [place] HEMATOLOGY INR 1.00 0.85 - 06/19 1.17 /2015 [place] HEMATOLOGY PROTIME 13.5 12.0 - 06/19 14.7 /2015 [place] Pathology Reports No Data Provided for This Section Diagnostic Reports Report Value Date Source Chest wo contrast CT EXAM: CT CHEST WITHOUT CONTRAST 04/01/2019 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 TECHNIQUE: Volumetric CT of the chest is acquired without contrast. Axial, coronal and sagittal images are provided. Axial MIP images are also provided. IV contrast: None. DLP (mGy-cm): 909 mGy-cm FINDINGS: Lines, tubes and hardware: None. Lower neck: The visible por tions or the lower neck and thyroid are unremarkable. Axilla: Clear. Airway: Patent. Lungs and pleura: Mild scat tered septal thickening in the lungs bilaterally, which is likely secondary to minimal interstitial pulmonary edema. Well circumscribed fatty attenuated nodule in the right l ower lobe, which is consiste nt with a hamartoma that is unchanged in size from prior CT (series 3, image 160). Small calcified granuloma in the right upper lobe. Previously seen nodule in the right lowe r lung, abutting the diaphra gmatic surface and associated with subsegmental atelectasis has resolved in the interval. There are no new or enlarging pulmonary nodules. Mediastinum, elias and intrat horacic lymph nodes: Stable 5 mm prevascular lymph node. Calcified mediastinal lymph node, which is secondary to prior granulomatous disease. Heart, pericardium and great vessels: The heart is of normal size. The thoracic aorta is dilated measuring 4.2 cm. The pulmonary trunk measures normal in caliber. Coronary and aortic calcifications are present involving the left a nterior descending and right coronary arteries. No pericardial effusion is noted. Upper abdomen: Bilateral po lycystic dysmorphic kidneys. Multiple hypodense liver cysts with the largest measuring approximately 3.6 x 2.4 cm, which appears stable from prior CT on 04/14/2018. Debris-fi lled distended gastric cavit y. Partial visualization of the ascending aorta stent. Bones: No acute abnormality. Old healed left anterior 6th, 7th, and 8th rib fractures. Soft tissues: Normal. IMPRESSION: 1. Stable right lower lobe hamartoma. 2. Previously seen nodule i n the right lower lung, abutting the diaphragmatic surface and associated with subsegmental atelectasis has resolved in the interval. 3. Stable ascending aortic aneurysm measuring u p to 4.2 cm. 4. Coronary and aortic atherosclerotic disease. 5. Bilateral polycystic dys plastic kidneys and multiple hypodense liver cyst, which correlates with patient's known history of polycystic kidney disease. Abdomen complete US EXAM: US ABDOMEN COMPLETE 04/01/2019 [facility] DATE: 04/01/2019 0032 hours Cente r INDICATION: Polycystic kidney disease COMPARISON: Abdomen/pelvis CT 04/14/2018 TECHNIQUE: Multiplanar grayscale and color Doppl er ultrasound of the abdomen. FINDINGS: Liver: Craniocaudal length: 19.4 cm. Echogenicity: Increased Surface: Normal. Mass (size and location): Mu ltiple hepatic cysts are present. A complex hepatic cyst in the right lobe measures 3.1 x 2.1 x 3.1 cm. A a simple cyst in the left lobe measures 1.5 x 1.2 x 1.7 cm. Another left hepatic lobe cyst measures 1.2 x 1.4 x 1.6 cm. Main portal vein: Caliber: 1.2 cm. Flow: Hepatopetal. Bile ducts: Common bile duct diameter: 0.4 cm. Intrahepatic ducts: Normal. Gallbladder: Present Gallstones: None. Gallbladder sludge: None. Gallbladder wall: 0.3 cm. Polyps/masses: None. Pericholecystic fluid: None. Sonographic English sign: Absent. Pancreas: Partially obscured. No focal lesions. Spleen: Size: 12.0 x 5.1 x 3 point cm. Mass or focal lesion (size and location): None. Right kidney: Multicystic. Size: 19.3 x 10.5 x 7.7 cm. Cortical thickness: Inter-cystic parenchymal thi nning Hydronephrosis: None. Echogenicity: Normal. Calculi: None. Cysts/Masses: Numerous simple renal cysts are no nicko. Left kidney: Multicystic. Size: 17.3 x 9.4 x 7.3 cm. Cortical thickness: Inter-cystic parenchymal thi nning Hydronephrosis: None. Echogenicity: Normal. Calculi: None. Cysts/Masses: Numerous simple renal cysts are no nicko. Bladder: Normal. Abdominal aorta: Visible portions are normal. Inferior vena cava: Visible portions are normal. Free fluid: None. Other: None. IMPRESSION: 1. Enlarged polycystic kidneys. No hydronephros is or stones. 2. Multiple simple hepatic cysts are noted and are likely related to above polycystic kidney disease. 3. Enlarged and echogenic hepatic parenchyma fa vors steatosis. Brain wo contrast EXAM: MRA OF THE BRAIN WITHOUT CONTRAST 2018 [facility] MRA EXAM: MR VENOGRAM OF THE BRAIN WITHOUT CONTRAST Center DATE: 09/14/2018 INDICATION: 'N18.9 Chronic kidney disease, unspecified - mra brain wo', multiple myeloma COMPARISON: None TECHNIQUE: - Three-dimensional time of flight brain MR angiography of intracranial vessels is performed, and maximum intensity projection reformatted images are presented in multiple three-dimensional rotational projections. - Phase contrast MRV of the head was performed without contrast. Multiplanar reformatted images and 3-D angiographic postprocessing with MIP (maximum intensity projection) reformatted images were generated. IV contrast: None. FINDINGS: MRA of the ka[place] of [place]: Normal flow-related signal i s seen throughout the included larger intracranial vessels of both the anterior and posterior circulations. There is no stenosis or occlusion. No arteriovenous malformation. An inferiorly projecting lob ulated outpouching arising from the right cavernous internal carotid artery is 0.4 cm (series 3B image 125) could represent an aneurysm but is irregular without saccular outp ouching on the 3-D imaging. There is no intradural saccular aneurysm. Both posterior communicating arteries and the anterior communicating artery are well demonstrated. MRV: The right transverse and sig moid sinus are dominant, with a small left sigmoid and transverse sinus that likely are congenitally small. No definite flow is seen within the proximal left transverse sinus , favored to be either in pl ane flow artifact or low flow due to the small vessel caliber. The superior sagittal sinus, straight sinus, vein of Wenceslao, internal cerebral veins remain widely patent. Included brain: Extremely limited evaluation . Findings of remote prior left caudate head ischemic infarction are seen on the [id number] imaging, with likely tiny infarcts throughout the right caudate body. IMPRESSION: 1. No hemodynamically signi ficant stenosis or intradural aneurysm on MRA brain. 2. A lobulated 0.4 cm infer iorly projecting outpouching along the cavernous segment of the right internal carotid artery could either represent vessel wall irregularity (favored given the lack of a sac cular appearance on 3-D imaging) or small extrad ural aneurysm. 3. Dominant right and hypop lastic left transverse and sigmoid sinuses on MRV without signs of thrombosis. Bone survey Myeloma EXAM: XR BONE SURVEY COMPLETE 06/30/2018 LAURA Ruizann DX DATE: 06/30/2018 11:18 CDT INDICATION: - D47.9 Neopl asm of uncertain behavior of lymphoid, hematopoietic and related tissue, unspecified COMPARISON: Chest, abdomen, and pelvis CT 019 TECHNIQUE: AP and lateral sk ull, cervical, thoracic and lumbar spine, AP pelvis, AP views of each humerus and femur. DISCUSSION: The bones are di ffusely osteopenic. No focal osseous lytic or sclerotic lesions are identified. Mild degenerative disc disease at C5-6. Old, healed left rib fractures. Abdominal aortic stents noted. Left inguinal dominique gical clips. IMPRESSION: No radiographic findings suggestive of myeloma. Liver US EXAM: US ABDOMEN LIMITED 05/12/2018 [facility] DATE: 05/12/2018 9:04 CDT Center INDICATION: ESRD, RTP workup, polycystic kidneys , evaluate liver cysts - ESRD COMPARISON: CT abdomen/pelvis without contrast 0 04/14/2018 TECHNIQUE: Multiplanar morteza iker and color Doppler ultrasound of the right upper quadrant. FINDINGS: Liver: Craniocaudal length: 19 cm. Echogenicity: Normal. Surface: Normal. Mass (size and location): Multiple simple cysts. * An area in the right hepa tic lobe measures 2.9 x 4.4 x 2.9 cm and likely represents a cluster of simple cysts versus a single larger cyst with thin septations. * Simple cyst at the left h epatic lobe adjacent to the gallbladder measuring 1.1 cm. * Simple cyst in the left lobe measuring 1.2 cm . * Simple cyst in the left lobe measuring 1.7 cm . * Likely multiple additiona l tiny simple cysts scattered throughout the liver. Main portal vein: Caliber: 1.3 cm. Flow: Hepatopetal. Bile ducts: Common bile duct diameter: 0.28 cm. Intrahepatic ducts: Normal. Gallbladder: Normal. Gallstones: None. Gallbladder sludge: None. Gallbladder wall: 0.18 cm. Polyps/masses: None. Pericholecystic fluid: None. Sonographic English sign: Absent. Pancreas: Partially obscured. No focal lesions. Spleen: Size: 12.2 x 4.9 x 4.7 cm. Mass or focal lesion (size and location): None. Free fluid: None. Other: None. IMPRESSION: 1. Numerous simple hepatic cysts. 2. No other abnormality identified. Chest wo contrast CT EXAM: CT CHEST WITHOUT CONTRAST 04/14/2018 [facility] DATE: 04/14/2018 12:42 [facility] [employer] Center INDICATION: transplant eval - transplant eval TECHNIQUE: Volumetric CT acq uisition of the chest was obtained without contrast. Sagittal, coronal and axial MIP reformatted images were reconstructed and obtained at the workstation. Total Exam DLP: 2107 mGy-- cm COMPARISON: None available. FINDINGS: Heart is not enlarged. Scatt ered aortic calcifications. Ascending aorta is aneurysmal measuring 42 mm. Pulmonary trunk does not measure enlarged. Left anterior descending and mild right coronary artery calcifications. No pericardial effusion. There are no pleural ef fusions. Calcified mediastinal lymph node is the result o f granulomatous disease. For a description of finding s below the diaphragm, please reference the concomitant abdomen and pelvis CT report from the same day. There is mild scattered sept al thickening in the lungs bilaterally probably due to minimal interstitial pulmonary edema. Mild scattered subsegmental atelectasis. Pulmonary nodules as follows (series 7): * A 9 mm nodule right lung base image 146, located in a region of subsegmental atelectasis * A well-circumscribed fatt y attenuation nodule right lower lobe image 161 measuring 12 mm, consistent with a hamartoma. Healing fractures of the lef t anterior 6th, 7th and 8th ribs which are subacute to chronic. IMPRESSION: 1. Aneurysm of the ascending aorta measuring 42 mm. 2. Coronary artery calcifications, predominantly involving the LAD branch. 3. Mild scattered interstiti al pulmonary edema and subsegmental atelectasis in the lungs bilaterally. 4. There is a 9 mm nodule at the right lung base in a region of subsegmental atelectasis seen on axial image 146 series 7. This can either represent a true pulmonary nodule or a nodular focus of atelect asis. This can be followed w ith a repeat chest CT in 3 months to assess for clearing. 5. A 12 mm hamartoma in the right lower lobe axi al image 161. 6. Healing fractures of the left anterior 6th, 7 th and 8th ribs. Abdomen/Pelvis wo IV EXAM: CT ABDOMEN AND PELVIS WITHOUT CONTRAS T 04/14/2018 [facility] contrast CT DATE: 04/14/2018 12:42 DIRECTOR [employer] Center INDICATION: - Iliac Vessels. Prekidney transpla nt evaluation. COMPARISON: 11/03/2016. TECHNIQUE: Volumetric CT of the abdomen and pelvis is acquired without intravenous contrast. Axial, coronal and sagittal images are provided. IV contrast: None. Enteric contrast: None. DLP: 2107 mGy-cm FINDINGS: Limited examination without contrast. Lines, tubes and hardware: None. Lower thorax: Please referen ce same day CT chest for findings above the diaphragm. Liver: Multiple hepatic cyst s are grossly unchanged when compared to prior. For example a oval hypodense lesion in the inferior right hepatic lobe (hepatic segment 6) measures 4.1 x 3.1 cm, previously m easuring 4.3 x 3.2 cm, consi stent with a hepatic cyst mild diffuse hepatic steatosis. Biliary tree: No intra- or extrahepatic biliary ductal dilation. Gallbladder: Normal. Pancreas: Normal. Spleen: Normal. Adrenals: Small left adrenal myelolipoma is unchanged in size, measuring 1.3 cm in diameter. Kidneys and ureters: Redemon stration of bilateral polycystic kidneys with overall increase in number and size of the complex, hemorrhagic cysts. No hydronephrosis identified. Bladder: Normal. Reproductive organs: Prostate and seminal vesicl es are unremarkable. Gastrointestinal tract: Stomach: Normal. Small bowel: Normal. Colon: Colonic diverticulosis without diverticul itis. Appendix: Normal. Peritoneum, mesentery and re troperitoneum: No free air, ascites or loculated fluid. Lymph nodes: Normal. Vasculature: Aorta and branches: Aortobii liac endovascular stent is stable with unchanged size of the aortic aneurysm with the saccular component measuring 4.5 cm, previously 4.6 cm. Stable aneurysm right common babs ac artery measuring up to 2.6 cm in maximal diam eter. IVC and veins: Normal. Portal vasculature: Normal. Bones: No acute abnormality. Age-related degener ative findings. Soft tissues: Normal. IMPRESSION: 1. Bilateral polycystic kid neys with interval increase in number and size of the bilateral complex, hemorrhagic cysts. 2. 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 3. Unchanged multiple hepatic cysts. 4. Diverticulosis without diverticulitis. 5. Stable left adrenal myolipoma. Abdomen/Pelvis wo IV EXAM: CT abdomen and pelvis 11/03/2016 [facility] contrast CT HISTORY: Abdominal aortic aneurysm, malaise COMPARISON: CT 06/20/2015 TECHNIQUE: Axial images of t abdomen and pelvis without contrast. Sagittal and coronal reformats. DLP: 938 FINDINGS: Limited exam without contrast. 1. Aortobiiliac endovascular stent is stable with decreased size of the aortic aneurysm with the saccular component measuring 4.6 cm, previously 6 cm. Stable aneurysm right common iliac artery. 2. Polycystic kidneys including complex, hemorrh agic cysts appear stable. 3. Multiple hepatic cysts. Mild fatty change of the liver. 4. Diverticula left colon without diverticulitis . 5. Multiple small para-aortic lymph nodes are st able and nonspecific. 6. COPD. 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 7. Small myelolipoma left ad renal. The right adrenal, gallbladder and pancreas appear unremarkable. Bladder is unremarkable. No free fluid. SL: [id number] Abdomen complete US EXAM: Ultrasound abdomen 11/03/2016 [facility] HISTORY: Aortic aneurysm repair, abdominal pain COMPARISON: 06/20/2015 TECHNIQUE: Grayscale and glez ited color sonographic evaluation of the abdomen was performed with standard technique. FINDINGS: 1. Proximal aorta measures 2.6 cm AP. 2. Echogenic liver may refle ct fatty change or other parenchymal disease. Multiple small hepatic cysts. 3. Gallbladder is contracted with mild wall thickening. No gallstone is seen. Visualized common duct measures 2 mm diameter. 4. Polycystic kidneys. No hydronephrosis. 5. Pancreas is not well visualized. 6. The spleen is normal size. 7. IVC is visualized. SL: [id number] Neck soft tissue DX Clinical Indication: Mass; 09/10/2015 [facility] Comparison: None 2 view neck Prominent lingual tonsillar tissues. Normal epiglottis. No subglottic airway narrowing. Prevertebral soft tissues normal. No radiopaque foreign body. IMPRESSION: Suspect lingual tonsillar hypertroph y. SL: [id number] Spine lumbar wo Study: Spine lumbar wo contrast MRI 06/20/2015 [facility] contrast MRI Clinical Indication: Weakness Comparison: CT abdomen and pelvis from 06/20/2015 TECHNIQUE: Multiplanar, mult isequence magnetic resonance imaging of the lumbar spine was performed without the administration of intravenous gadolinium contrast. FINDINGS: 5 nonrib-bearing lumbar vert ebra are present. No acute compression fracture or subluxation is seen. No vertebral body marrow edema is noted. Disc desiccation with mild disc height loss at L2-L3 and L3-L 4 is seen. The conus termina wero at L1-L2. Numerous bilateral renal cysts are noted. Changes of endovascular stent graft repair across an infrarenal abdominal aortic aneurysm are seen. Findings by level: T12-L1: The disc is normal. There is no central or foraminal stenosis. The facet joints are unremarkable. L1-L2: The disc is normal. T here is no central or foraminal stenosis. The facet joints are unremarkable. L2-L3: The disc is normal. T here is no central or foraminal stenosis. The facet joints are unremarkable. L3-L4: Small annular disc bu lge is seen. Mild facet arthrosis is noted. There is no spinal canal stenosis. Mild right neural foraminal narrowing is present. L4-L5: Small annular disc bu lge is present. Mild to moderate facet arthrosis is seen. There is no spinal canal stenosis or neural foraminal narrowing. L5-S1: Negative for signific ant disc bulge or protrusion. Mild to moderate facet arthrosis is seen. There is no spinal canal stenosis or neural foraminal narrowing. The cauda equina and nerve roots are unremarkabl e. IMPRESSION: 1. Degenerative changes of t he lumbar spine with mild right neural foraminal narrowing at L3-L4. 2. No spinal canal stenosis throughout the lumba r spine. SL: [id number] Spine Thoracic wo Patient Name: ZENIA TIJERINA 06/20/2015 [facility] contrast MRI : 1955; Age: 60 years y/o Male MR: [id number] Study: Spine Thoracic wo contrast MRI 06/20/2015 1:05 PM CDT Clinical Indication: Weakness; Comparison: None TECHNIQUE: Multiplanar T1, T 2, STIR weighted noncontrast MRI of the thoracic spine is performed on the 1.5 Emily magnet. FINDINGS: ALIGNMENT AND GENERAL SURVEY : There is normal alignment of the thoracic spine. The bone marrow is normal for the patient's age. There are no fractures or compression deformities. The thoracic spine posterior elements ar e normal. The costovertebral junctions are unremarkable. SPINAL CORD: The thoracic sp ine spinal cord is normal in size and signal. The CSF space is unremarkable. DISK SPACES: The discs show normal hydration and signal. There is no disc bulge, protrusion or degenerative change and no significant central or foraminal stenosis. Other findings: Moderate-sev ere facet arthrosis in the lower lumbar spine at T9-T10 is seen. There is resulting moderate right neural foraminal narrowing. Incidental note is made of n umerous bilateral renal cysts. Multiple hepatic cysts are also partially visualized. IMPRESSION: 1. No acute bony abnormality of the thoracic spine and no spinal canal stenosis. 2. No significant disc bulges or protrusions thr oughout the thoracic spine. 3. Facet arthrosis in the lo wer thoracic spine with moderate right neural foraminal narrowing at T9-T10. SL: [id number] Renal Stone CT Renal Stone CT 06/20/2015 [facility] TECHNIQUE: Contiguous transa xial images of the abdomen and pelvis were performed from the lung bases to the superior pubic rami without IV contrast. COMPARISON: None CLINICAL HX: Back pain. CT ABDOMEN: Lower Chest: Indeterminant 1 4 mm low-density nodule is visualized at the right lung base. The lung bases are otherwise clear. GI Tract: Bowel gas pattern is unremarkable. Appendix demonstrates normal morphology. There is no evidence for free fluid or free air in the abdomen. Tract and Retroperitoneum : There are too numerous to count cysts [...] Bone and Soft tissues: No significant bony a bnormality is noted. CT PELVIS: The bladder, seminal vesicle s and the prostate are unremarkable in appearance, given the limitation of lack of IV contrast. Prostatic calcifications. No free fluid is present in the pelvis. There are paez rgical clips noted in the region of the groins b ilaterally. IMPRESSION: Endovascular graft is in bailey ce. No CT signs for aortic rupture. Contrast study is needed to evaluate for patency of the graft and assess for endoleaks. Changes related to adult polycystic kidney disea se are noted.. Indeterminate 14 mm low-density lesion right keara g base. No other significant acute a bnormality is noted on the noncontrast CT of the abdomen and pelvis. SL: [id number] Chest 1view DX Portable chest: The cardiome diastinal silhouette and pulmonary vasculature are within normal limits. The lungs and pleural spaces are clear. There are no acute osseous abnormalities. There is no significant change compared to 07/06/2013. 06/20/2015 [facility] IMPRESSION: No acute radiographic abnormality in the chest. SL 13 Consultation Notes No Data Provided for This Section Discharge Summaries No Data Provided for This Section History and Physicals No Data Provided for This Section Vital Signs Vital Sign Value Date Comments Source Systolic (mm Hg) 115 04/27/2019 [facility] Diastolic (mm Hg) 71 04/27/2019 [facility] Heart Rate 54 04/27/2019 [facility] Height 185.42 cm 04/27/2019 [facility] Weight 113.636 04/27/2019 [facility] BMI Calculated 33.05 04/27/2019 [facility] Systolic (mm Hg) 148 04/01/2019 [facility] Diastolic (mm Hg) 76 04/01/2019 [facility] [place] Heart Rate 64 04/01/2019 [facility] [place] Respitory Rate 18 04/01/2019 [facility] Temperature Oral (F) 97.6 F 04/01/2019 [facility] Height 180.34 cm 04/01/2019 [facility] Weight 113.778 04/01/2019 [facility] BMI Calculated 34.98 04/01/2019 [facility] Systolic (mm Hg) 154 03/16/2019 [facility] Diastolic (mm Hg) 91 03/16/2019 [facility] Heart Rate 62 03/16/2019 [facility] Respitory Rate 18 03/16/2019 [facility] Height 183 cm 03/16/2019 [facility] Weight 113.3 03/16/2019 [facility] BMI Calculated 33.83 03/16/2019 [facility] Weight 116.534 08/20/2018 [facility] BMI Calculated 34.84 08/20/2018 [facility] Respitory Rate 18 08/20/2018 [facility] Temperature Oral (F) 97.6 F 08/20/2018 [facility] Height 182.88 cm 08/20/2018 [facility] Systolic (mm Hg) 123 08/20/2018 [facility] Diastolic (mm Hg) 67 08/20/2018 [facility] Heart Rate 55 08/20/2018 [facility] Temperature Oral (F) 97.7 F 07/23/2018 [facility] Weight 114.045 07/23/2018 [facility] BMI Calculated 34.1 07/23/2018 [facility] Heart Rate 57 07/23/2018 [facility] Respitory Rate 18 07/23/2018 [facility] Height 182.88 cm 07/23/2018 [facility] Systolic (mm Hg) 187 07/23/2018 [facility] Diastolic (mm Hg) 73 07/23/2018 [facility] BMI Calculated 34.79 07/07/2018 [facility] Weight 116.364 07/07/2018 [facility] Height 182.88 cm 07/07/2018 [facility] Systolic (mm Hg) 160 07/07/2018 [facility] Diastolic (mm Hg) 75 07/07/2018 [facility] Temperature Oral (F) 97.7 F 07/07/2018 [facility] Heart Rate 62 07/07/2018 [facility] Respitory Rate 18 07/07/2018 [facility] Height 187.96 cm 07/07/2018 [facility] Weight 113.182 07/07/2018 [facility] BMI Calculated 32.04 07/07/2018 [facility] Center Weight 113.3 06/23/2018 [facility] BMI Calculated 34.2 06/23/2018 [facility] Center Respitory Rate 20 06/23/2018 [facility] Heart Rate 60 06/23/2018 [facility] Temperature Oral (F) 97.6 F 06/23/2018 [facility] Height 182 cm 06/23/2018 [facility] Systolic (mm Hg) 141 06/23/2018 [facility] Center Diastolic (mm Hg) 83 06/23/2018 [facility] Weight 116 04/06/2018 [facility] Height 182 cm 04/06/2018 [facility] Respitory Rate 18 04/06/2018 [facility] Heart Rate 54 04/06/2018 [facility] BMI Calculated 35.02 04/06/2018 [facility] Center Systolic (mm Hg) 131 04/06/2018 [facility] Center Diastolic (mm Hg) 73 04/06/2018 [facility] Respitory Rate 18 11/03/2016 [place] Temperature Oral (F) 98.3 F 11/03/2016 [place] Systolic (mm Hg) 131 11/03/2016 [place] Diastolic (mm Hg) 61 11/03/2016 [place] Heart Rate 84 11/03/2016 [place] Heart Rate 75 11/03/2016 [place] Systolic (mm Hg) 143 11/03/2016 [place] Diastolic (mm Hg) 78 11/03/2016 [place] Respitory Rate 18 11/03/2016 [place] Respitory Rate 18 11/03/2016 [facility] [place] Systolic (mm Hg) 126 11/03/2016 [place] Diastolic (mm Hg) 82 11/03/2016 [place] Temperature Oral (F) 98.2 F 11/03/2016 [place] Heart Rate 88 11/03/2016 [place] Weight 118.182 11/03/2016 [place] BMI Calculated 33.45 11/03/2016 [place] Height 187.96 cm 11/03/2016 [place] Temperature Oral (F) 98.0 F 11/03/2016 [facility] [place] Systolic (mm Hg) 136 09/10/2015 [facility] [place] Diastolic (mm Hg) 72 09/10/2015 [place] Temperature Oral (F) 98.1 F 09/10/2015 [place] Heart Rate 60 09/10/2015 [place] Respitory Rate 20 09/10/2015 [place] Temperature Oral (F) 97.7 F 09/10/2015 [facility] [place] Respitory Rate 18 09/10/2015 [facility] [place] Heart Rate 58 09/10/2015 [facility] [place] Systolic (mm Hg) 140 09/10/2015 [facility] [place] Diastolic (mm Hg) 65 09/10/2015 [place] Systolic (mm Hg) 105 06/20/2015 [place] Diastolic (mm Hg) 50 06/20/2015 [place] Respitory Rate 16 06/20/2015 [place] Temperature Oral (F) 98.6 F 06/20/2015 [place] Systolic (mm Hg) 115 06/20/2015 [facility] [place] Diastolic (mm Hg) 66 06/20/2015 [facility] [place] Respitory Rate 20 06/20/2015 [place] Respitory Rate 19 06/20/2015 [place] Systolic (mm Hg) 110 06/20/2015 [place] Diastolic (mm Hg) 61 06/20/2015 [place] Temperature Oral (F) 97.7 F 06/20/2015 [place] Weight 118.182 06/20/2015 [place] Heart Rate 71 06/20/2015 [place] Encounters Location Location Encounter Encounter Reason Attending ADM DC Stat us Source Details Type Number For Provider Date Date Visit [facility] Outpt Diag [id number] Segundo Lugo 06/05 06/06 [facility] EC [id number] Mayura 06/19 06/19 [facility] Thornton /2015 Paige ma [facility] EC [id number] Brigido 09/09 09/09 [facility] 2 Gemma /2015 Yamini and [facility] Emergency [id number] Damion 11/03 11/03 [facility] 3 Garbino /2016 [facility] Outpt Diag [id number] Lucila 09/23 09/23 [facility] 2 [facility] OP [id number] [place] 04/06 05[place]06 [place] [facility] 0 [facility] [place] Pre [facility] Outpatient [id number] Katey 05/12 05/13 [place] [facility] 4 Vela [facility] Recurring [id number] Camelia 06/23 07/23 [facility] 2 Ayden [facility] Outpt Diag [id number] Camelia 06/30 07/01 [facility] 3 Ayden [facility] for Phone [id number] 07/07 07/09 [facility] Failure for [facility] [id number] [place] 07/07 08/06 [place] [facility] 1 De ovi [facility] Center Advanced Heart Failure [facility] OP [id number] [place] 08/20 09/19 [place] [facility] 3 De ovi [facility] [place] Pre [facility] OP [id number] [place] 03/16 04/15 [place] [facility] 5 [facility] Advanced Pre Heart [facility] [id number] Arnaldo 04/01 04/02 [place] [facility] 6 Yehuda [facility] Outpatient [id number] Tung [facility] 04/27 [facility]patient [id number] 04/27 [facility] 1 -PROCEDURE 2020 Oni n ROOM 2, Outpatient [id number] 04/27 [facility] 2 -PROCEDURE 2020 Oni n ROOM 1, [facility] Outpatient [id number] [place] 04/27 04/28 [facility] Outpatient [id number] Tung Carmelina 04/27 04/28 [facility] Outpatient [id number] [place] 04/27 04/28 [facility] 2 [facility] Outpatient [id number] Silvino Carmelina 10/23 [facility] Procedures Procedure Code Date Perfomer Comments Source Complex cystometrogram 64648 Medical (ie, calibrated 0 Group electronic equipment); with voiding pressure studies (ie, bladder voiding pressure) and urethral pressure profile studies (ie, urethral closure pressure profile), any technique Electromyography studies [address] Medical (EMG) of anal or 0 Group urethral sphincter, other than needle, any technique Cystourethroscopy [address] [facility] iris (separate procedure) 0 [place] [address] [facility] Medical cystography or voiding 0 Gr oup urethrocystography Voiding pressure 18227 Medic al studies, intra-abdominal 0 Group (ie, rectal, gastric, intraperitoneal) (List separately in addition to code for primary procedure) Complex uroflowmetry [address] [facility] edical (eg, calibrated 0 Group [place] [address] [facility] post-voiding residual 0 Mely up urine and/or bladder capacity by ultrasound, non-imaging AAA - Repair of [id number] Medica l abdominal aortic Group, aneurysm using [facility], [place], LAURA Zaldivar, LAURA Xavier, [facility] Heart Failure Assessment and Plan No Data Provided for This Section Plan of Care No Data Provided for This Section Social History Social History Date Source Social History TypeResponse 03/16/2019 [facility] Alcohol Current, Type Beer. Frequency: 1-2 times per year. Started age 15 Years. Substance Abuse Use: None. Smoking Status Former smoker; Type: Cigarettes; Exposur e to Tobacco Smoke None; Cigarette Smoking Last 365 Days No; Reg Smoking Cessation Counseling No1 entered on: 04/01/19 1Pt states he stopped smoking cigarettes ten years ago. Social History TypeResponse 03/16/2019 [facility] Alcohol Current, Type Beer. Frequency: 1-2 times per year. Started age 15 Years. Substance Abuse Use: None. Smoking Status Former smoker; Type: Cigarettes; Exposur e to Tobacco Smoke None; Cigarette Smoking Last 365 Days No; Reg Smoking Cessation Counseling No1 entered on: 04/27/19 1Pt states he stopped smoking cigarettes ten years ago. Social History TypeResponse 04/06/2018 LAURA Joseph nora Substance Abuse Use: None. Alcohol Current, Type Beer. Frequency: 1-2 times per month. Smoking Status Former smoker; Type: Cigarettes; Exposur e to Tobacco Smoke None; Cigarette Smoking Last 365 Days No; Reg Smoking Cessation Counseling No1 entered on: 06/23/18 1Pt states he stopped smoking cigarettes ten years ago. Social History TypeResponse 04/06/2018 [facility] Failure Use: None. Alcohol Current, Type Beer. Frequency: 1-2 times per month. Smoking Status Former smoker; Type: Cigarettes; Exposur e to Tobacco Smoke None; Cigarette Smoking Last 365 Days No; Reg Smoking Cessation Counseling No1 entered on: 07/07/18 1Pt states he stopped smoking cigarettes ten years ago. Social History TypeResponse 04/06/2018 LAURA julien Substance Abuse Use: None. Alcohol Current, Type Beer. Frequency: 1-2 times per month. Smoking Status Former smoker; Type: Cigarettes; Exposur e to Tobacco Smoke None; Cigarette Smoking Last 365 Days No; Reg Smoking Cessation Counseling No1 entered on: 04/06/18 1Pt states he stopped smoking cigarettes ten years ago. Social History TypeResponse 11/03/2016 [place] Smoking Status Former smoker; Type: Cigarettes; Exposur e to Tobacco Smoke None; Cigarette Smoking Last 365 Days No; Reg Smoking Cessation Counseling No Social History TypeResponse 07/06/2013 [place]URA [place] Smoking Status Former smoker; Type: Cigarettes; Exposur e to Tobacco Smoke None; Cigarette Smoking Last 365 Days No; Reg Smoking Cessation Counseling No Family History No Data Provided for This Section Advance Directives No Data Provided for This Section Functional Status No Data Provided for This Section
--- OUTSIDE RECORDS SUMMARY | 2019-11-14 16:13 | XMS REPORT | Continuity of Care Document ---
:1955 Author Organization [facility] t Address [address] [place] [address] Care Team Providers Name Role Phone CARMELINA Attending Clinician Unavailable Carmelina Attending Clinician Vikas Blackman Attending Clinician ORGANTRANSPLANT Attending Clinician Unavailable Ayden Attending Clinician MOHAMUD Attending Clinician Unavailable AYDEN Attending Clinician Unavailable Laly Vela Attending Clinician Ida Martinez Attending Clinician Sandra Healy Attending Clinician Iona Attending Clinician Nigel Menendez Attending Clinician Scott Thornton Attending Clinician Edd Lugo Attending Clinician Problems Condition Condition Condition Status Onset Resolution Last Treating Co mments Source Name Details Category Date Date Treatment Clinician Date Z01.818 - Diagnosis Active 2019-10-14 Memoria ENCOUNTER 09-05 07:56:00 l FOR OTHER Z01.818 00:01: Herm nora PREPROCEDU - 00 ENCOUNTER FOR OTHER PREPROCEDU Active 09/06/2019 [facility] LABH Diagnosis Active 2019-05-13 Mem oria 3-09 08:44:00 l LABH 11:00: Zen 00 Active 05/09/2019 [facility] F/U Diagnosis Active 2019-04-01 Mem oria 1-16 09:26:00 l F/U 00:00: [place] 00 Active 03/17/2019 [facility] LISTED Diagnosis Active 2019-04-01 Mem oria UPDATE 1-07 13:11:00 l LISTED 00:00: [place] UPDATE 00 Active 03/08/2019 [facility] FOLLOW UP Diagnosis Active 2019-04-04 Memoria 1- 07:14:00 l FOLLOW 00:00: Zen UP 00 Active 0 [facility] LABS Diagnosis Active 2018-09-14 Mem oria 5-23 14:06:00 l LABS 00:00: Zen 00 Active 07/22/2018 [facility] D47.2 - Diagnosis Active 2019-05-19 Me moria MONOCLONAL -26 13:49:00 l GAMMOPATHY D47.2 - 00:01: Her sarmiento MONOCLONAL 00 GAMMOPATHY Active 06/25/2018 LAURA [place] CKD 9 Diagnosis Active 2018-05-12 Mem oria CHRONIC 04-23 09:07:00 l KIDNEY CKD 9 00:00: Zen DISEASE CHRONIC 00 KIDNEY DISEASE Active 04/23/2018 [facility] ELEVATED Diagnosis Active 2018-10-20 M emoria GAMMA 2- 12:47:00 l GLOBULIN/ ELEVATED 00:00: Her sarmiento PRE GAMMA 00 -KIDNEY GLOBULIN/ WOR PRE -KIDNEY WOR Active 04/22/2018 [facility] KIDNEY/DO Diagnosis Active 2019-07-07 Memoria NOT USE 2-05 15:56:00 l FOR 06:00: Zen CHARGES KIDNEY/DO 00 F/C NOTES NOT USE FOR CHARGES F/C NOTES Active 04/06/2018 [facility] ESRD EVAL Diagnosis Active 2018-07-23 Memoria 2-04 08:22:00 l ESRD 00:00: [place] EVAL 00 Active 04/05/2018 [facility] NEW Diagnosis Active 2018-04-26 Mem oria EVALUATION 1-17 14:53:00 l NEW 00:00: Zen EVALUATION 00 Active 03/18/2018 [facility] Z87.891 - Diagnosis Active 2017-10-24 Memoria PERSONAL 7- 15:42:00 l HISTORY OF Z87.891 00:01: Her sarmiento NICOTINE D - PERSONAL 00 HISTORY OF NICOTINE D Active 09/08/2017 [facility] [place] WEAKNESS Diagnosis Active 2016-11-03 M emoria 9-04 10:50:00 l WEAKNESS 00:00: Oni n 00 Active 11/03/2016 [facility] THROAT Diagnosis Active 2015-09-10 Mem oria PAIN - 14:15:00 l THROAT 00:00: [place] PAIN 00 Active 09/10/2015 [facility] CHEST PAIN Diagnosis Active 2015-06-20 Memoria 4-19 10:33:00 l CHEST 00:00: [place] PAIN 00 Active 06/19/2015 [facility] Zen 491.20 - Diagnosis Active 2013-10-21 M emoria OBST CHR 7-12 10:38:00 l BRONC 491.20 - 00:01: Oni n OBST CHR 00 BRONC Active 09/10/2012 [facility] History of History of Problem Resolve [facility] chronic chronic d [place] of [place] lung [place] lung Physici disease disease ans History of History of Problem Resolve Univers essential essential d ity of hypertens[place]ens[place] Physici ans History of History of Problem Resolve Univers hyperlipid hyperlipid d it y of emia emia [place] Physici ans Prophylact Prophylact Problem Active U nivers ic ic [place] of antibiotic antibiotic [place] [facility] BPH BPH Problem Active Univers (benign (benign [place]y of prostatic [place]static [place] hyperplasi hyperplasi Ph ysici a) a) ans Low Low Problem Active Univers compliance compliance it y of bladder bladder [place] Physici ans Adult Adult Problem Active Univers polycystic polycystic it y of kidney kidney [place] disease disease Physici ans Microscopi Microscopi Problem Active U nivers c c [place] of [place] Proteinuri Proteinuri Problem Active U nivers a a ity of [place] Physici ans CKD CKD Problem Active Univers (chronic (chronic ity of kidney kidney [place] disease) disease) Physic i ans Prostate Prostate Problem Active Unive rs cancer cancer [place] Physici [place] Hyperfunct Hyperfunct Problem Active U nivers ion, ion, [place] of testicular testicular [place] History of History of Problem Active U nivers multiple multiple [place] pulmonary [place] nodules nodules Physici ans Aneurysm Aneurysm Problem Active Unive rs ity of [place] Physici ans Erectile Erectile Problem Active Unive rs dysfunctio dysfunctio it y of n n [place] Physici ans Final: Problem 2015-06-23 Memor ia Weakness 04:12:43 l Final: Zen Weakness 06/23/2015 [facility] Final: Problem 2015-06-23 Memor ia Abdominal 04:12:43 l aortic Final: [place] aneurysm, Abdominal without aortic rupture aneurysm, without rupture 06/23/2015 [facility] Final: Problem 2015-06-23 Memor ia Hypertensi 04:12:43 l ve chronic Final: Herm nora kidney Hypertensi disease ve chronic with stage kidney 1 through disease stage 4 with stage chronic 1 through kidney stage 4 disease, chronic or kidney unspecifie disease, d chronic or kidney unspecifie disease d chronic kidney disease 06/23/2015 [facility] Final: Problem 2015-06-23 Memor ia Chronic 04:12:43 l kidney Final: [place] disease, Chronic unspecifie kidney d disease, unspecifie d 06/23/2015 [facility] Abdominal Problem Resolve 2019-04-30 M emoria aortic d 00:47:41 l aneurysm [place] (disorder) Abdominal aortic aneurysm (disorder) Resolved Problem 04/30/2019 [facility], [place],[facility] LAURA Zaldivar, LAURA Xavier,[facility] Diabetic Problem Resolve 2019-04-30 Me moria neuropathy d 00:47:41 l (disorder) Diabetic He rmann neuropathy (disorder) Resolved Problem 04/30/2019 [facility] Kidney Problem Active 2019-04-16 Memor ia disease 23:45:59 l (disorder) Kidney Herm nora disease (disorder) Active Problem 04/16/2019 [facility] Antibiotic Problem Active 2019-04-30 M emoria prophylaxi 00:47:41 l s Zen indicated Antibiotic (context-d prophylaxi ependent s category) indicated (context-d ependent category) Active Problem 04/30/2019 [facility] Arthritis Problem Active 2019-04-30 Me moria (disorder) 00:47:41 l Zen Arthritis (disorder) Active Problem 04/30/2019 [facility], LAURA Zaldivar, [facility] 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 00:47:41 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 Problem 04/30/2019 [facility] Benign Problem Active 2019-04-30 Memor ia prostatic 00:47:41 l hyperplasi Benign Herm nora a prostatic (disorder) hyperplasi a (disorder) Active Problem 04/30/2019 [facility] Bladder Problem Active 2019-04-30 Jonathan kayden dysfunctio 00:47:41 l n Bladder Zen (finding) dysfunctio n (finding) Active Problem 04/30/2019 [facility] Blood Problem Active 2019-04-30 Memor ia coagulatio 00:47:41 l n disorder Blood Mehreen nn (disorder) coagulatio n disorder (disorder) Active Problem 04/30/2019 [facility], LAURA Zaldivar, [facility] Chronic Problem Active 2019-04-30 Jonathan kayden kidney 00:47:41 l disease Chronic Oni n (disorder) kidney disease (disorder) Active Problem 04/30/2019 [facility] Chronic Problem Active 2019-04-30 Jonathan kayden obstructiv 00:47:41 l e lung Chronic Zen disease obstructiv (disorder) e lung disease (disorder) Active Problem 04/30/2019 Data migrated from [employer] on 07/29/14. [facility], Diana Xavier, LAURA Zaldivar, LAURA XavierM [facility] Essential Problem Active 2019-04-30 Me moria hypertensi 00:47:41 l on Zen (disorder) Essential hypertensi on (disorder) Active Problem 04/30/2019 Data migrated from [employer] on 07/29/14. [facility], Diana Xavier, LAURA XavierM [facility] Gastroesop Problem Active 2019-04-30 M emoria hageal 00:47:41 l reflux [place] disease Gastroesop (disorder) hageal reflux disease (disorder) Active Problem 04/30/2019 Data migrated from [employer] on 07/29/14. [facility], Diana Xavier, LAURA Xavier,[facility] Gout Problem Active 2019-04-30 Memor ia (disorder) 00:47:41 l Gout Zen (disorder) Active Problem 04/30/2019 Data migrated from [employer] on 07/29/14. [facility], [place],[facility] LAURA Zaldivar, LAURA Xavier,[facility] Hyperchole Problem Active 2019-04-30 M emoria sterolemia 00:47:41 l (disorder) Oni n Hyperchole sterolemia (disorder) Active Problem 04/30/2019 Data migrated from [employer] on 07/29/14. [facility] LAURA Zaldivar, LAURA Xavier,[facility] Hyperlipid Problem Active 2019-04-30 M emoria emia 00:47:41 l (disorder) Oni gutierrez Hyperlipid emia (disorder) Active Problem 04/30/2019 [facility], [place],[facility] LAURA Zaldivar, LAURA Xavier,[facility] Hypertensi Problem Active 2019-04-30 M emoria ve 00:47:41 l disorder, [place] systemic Hypertensi arterial ve (disorder) disorder, systemic arterial (disorder) Active Problem 04/30/2019 [facility], [place],[facility] LAURA basilio, LAURA Zaldivar, LAURA Xavier,[facility] Hypogonadi Problem Active 2019-04-30 M emoria sm 00:47:41 l (disorder) Oni n Hypogonadi sm (disorder) Active Problem 04/30/2019 Data migrated from [employer] on 07/29/14. [facility], [place],[facility] LAURA Zaldivar, LAURA Xavier,[facility] Inflammato Problem Active 2019-04-30 M emoria ry disease 00:47:41 l of liver Zen (disorder) Inflammato ry disease of liver (disorder) Active Problem 04/30/2019 [facility], LAURA Zaldivar, [facility] Low Problem Active 2019-04-30 Memor ia compliance 00:47:41 l bladder Low [place] (disorder) compliance bladder (disorder) Active Problem 04/30/2019 [facility] Microscopi Problem Active 2019-04-30 M emoria c 00:47:41 l hematuria [place] (disorder) Microscopi c hematuria (disorder) Active Problem 04/30/2019 [facility] Morbid Problem Active 2019-04-30 Memor ia obesity 00:47:41 l (disorder) Morbid Herm nora obesity (disorder) Active Problem 04/30/2019 [facility], LAURA Zaldivar, [facility] Patient Problem Active 2019-04-30 Jonathan kayden encounter 00:47:41 l status Patient [place] (finding) encounter status (finding) Active Problem 04/30/2019 [facility] Proteinuri Problem Active 2019-04-30 M emoria a 00:47:41 l (finding) Zen Proteinuri a (finding) Active Problem 04/30/2019 [facility] CHRONIC Diagnosis Active 2018-05-12 Me moria KIDNEY 09:07:00 l DISEASE, CHRONIC Mehreen nn UNSPECIFIE KIDNEY D DISEASE, UNSPECIFIE D Active [facility] ENCOUNTER Diagnosis Active 2018-05-12 Memoria FOR OTHER 09:07:00 l PREPROCEDU Oni n RAL EXAMIN ENCOUNTER FOR OTHER PREPROCEDU RAL EXAMIN Active [facility] ABDOMINAL Diagnosis Active 2019-04-01 Memoria DISTENSION 09:26:00 l (GASEOUS) [place] ABDOMINAL DISTENSION (GASEOUS) Active [facility] ENCOUNTER Diagnosis Active 2019-05-13 Memoria FOR 08:44:00 l PREPROCEDU Oni n RAL ENCOUNTER LABORATORY FOR E PREPROCEDU RAL LABORATORY E Active [facility] Hypomagnes Problem 2016-11-06 2016-11-06 Memoria emia 11-03 00:37:30 00:37:30 l 05:00: Zen Hypomagnes 00 emia 11/03/2016 11/06/2016 [place] Weakness Problem 2016-11-06 2016-11-06 Memoria 11-03 00:37:30 00:37:30 l Weakness 05:00: Oni n 00 11/03/2016 11/06/2016 [place] Other Problem 2016-11-06 2016-11-06 M emoria disorders 9- 00:37:30 00:37:30 l of Other 05:00: [place] phosphorus disorders 00 metabolism of phosphorus metabolism 11/03/2016 11/06/2016 [place] Discharge Problem 2015-09-13 2015-09-13 Memoria Diagnosis: 7- 03:04:21 03:04:21 l Sore 05:00: Zen throat Discharge 00 Diagnosis: Sore throat 09/10/2015 09/13/2015 [place] Discharge Problem 2015-09-13 2015-09-13 Memoria Diagnosis: 7- 03:04:21 03:04:21 l Foreign 05:00: [place] body (FB) Discharge 00 in soft Diagnosis: tissue Foreign (Throat) body (FB) in soft tissue (Throat) 09/13/2015 [place] Discharge Problem 2015-06-23 2015-06-23 Memoria Diagnosis: 4- 04:12:43 04:12:43 l Weakness 05:00: Zen Discharge 00 Diagnosis: Weakness 6 06/23/2015 [place] Discharge Problem 2015-06-23 2015-06-23 Memoria Diagnosis: 4- 04:12:43 04:12:43 l Chronic 05:00: Zen back pain Discharge 00 Diagnosis: Chronic back pain 06/20/2015 06/23/2015 [place] Discharge Problem 2015-06-23 2015-06-23 Memoria Diagnosis: 4- 04:12:43 04:12:43 l History of 05:00: Oni n AAA Discharge 00 (abdominal Diagnosis: aortic History of aneurysm) AAA repair (abdominal aortic aneurysm) repair 06/20/2015 06/23/2015 [facility] Allergies, Adverse Reactions, Alerts Allergy Allergy Status Severity Reaction(s) Onset Inactive Treating Comm ents Source Name Type Date Date Clinician No Known No Known Active Memori a Medicati Medicati l on on [place] Allergie Allergie s s Family History Family Member Diagnosis Comments Start Date Stop Date Source Father Family history of End [facility] [place] stage renal disease Physi cians Father Family history of [facility] [place] Kidney transplant Physici ans recipient Father Family history of [facility] [place] Polycystic kidney Physici ans Social History Social Habit Start Date Stop Date Quantity Comments Source Social History 2018-04-06 2018-04-06 Bebeto marxnora 19:50:33 19:50:33 Smoking Status Start Date Stop Date Source Social History 2013-07-06 23:35:17 2013-07-06 23:35:17 [facility] Medications Ordered Filled Start Stop Current Ordering Indication Dosage Frequency Signature Comments Components Source Medication Medication Date Date Medication? Clinician (SIG) Name Name Tadalafil 5 Tadalafil 5 2020-0 Yes SILVINO COSME 1 TAKE 1 Univers MG Oral MG Oral 8-24 M.D. TABLET ity of Tablet Tablet 00:00: BEDTIME 00 Physici ans Tadalafil Tadalafil 2020-0 Yes SILVINO COSME TAKE 1 Univers 20 MG Oral 20 MG Oral 8-24 M.D. TABLET 1 ity of Tablet Tablet 00:00: HOUR [place] 00 BEFORE Physici ACTIVITY ans NEEDED. 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 amLODIPine 2020-0 Yes 5 mg = 1 Mem oria 5 mg oral 1-31 tab, PO, l tablet 22:40: Daily, # [place] 00 90 tab, 3 Refill(s), Pharmacy: [facility] #[id number] atorvastati 2020-0 Yes 20 mg = 1 M emoria n 20 mg 1-31 tab, PO, l oral tablet 22:40: Bedtime, # [place] 00 90 tab, 2 Refill(s), Pharmacy: [facility] #[id number] atorvastati 2020-0 No 20 mg = 1 M emoria n 20 mg 1-31 tab, PO, l oral tablet 22:39: Bedtime, # Zen 00 90 tab, 3 Refill(s) amLODIPine 2020-0 No 5 mg = 1 Mem oria 5 mg oral 1-31 tab, PO, l tablet 22:39: Daily, # [place] 00 90 tab, 1 Refill(s) Metoprolol 2020-0 No 25 mg = Jonathan kayden Tartrate 50 1-15 0.5 tab, l mg oral 14:23: PO, BID, Oni n tablet 00 TAKE 1/2 TABLET BY MOUTH TWICE A DAY WITH MEALS albuterol 2019-0 Yes INHALE 2 Jonathan kayden 90 mcg/inh 1-15 PUFFS BY l inhalation 14:23: MOUTH Oni n aerosol 00 EVERY 4 HOURS NEEDED FOR SHORTNESS OF BREADTH Breo 2020-0 Yes INHALE 1 Memoria Ellipta 100 1-15 PUFF BY l mcg-25 mcg 14:23: MOUTH ONCE H ermann inhalation 00 A DAY FOR powder 90 DAYS cyclobenzap 2019-0 Yes 10 mg = 1 M emoria rine 10 mg 1-15 tab, PO, l oral tablet 14:23: Q8H, Her sarmiento 00 NEEDED FOR MUSCLE SPASMS allopurinol 2019-0 Yes 200 mg = 2 Memoria 100 mg oral 1-15 tab, PO, l tablet 14:23: Daily Zen 00 Acetaminoph 2019-0 Yes 2 tab, PO, Memoria en 300 MG / 1-15 Q6H, l Codeine 14:23: NEEDED FOR Herm nora Phosphate 00 PAIN 30 MG Oral Tablet MethylPREDN 2019-0 No See Memori a ISolone 1-15 Instructio l Dose Pack 4 14:16: ns, PO, Her sarmiento mg oral 00 Daily, Use tablet as directed on label., 0 Refill(s) carvedilol 2019-0 Yes 25 mg = 1 Me moria 25 mg oral 1-15 tab, PO, l tablet 14:16: BID, 1 [place] 00 Refill(s) carvedilol 2018- Yes 6.25 mg = Me moria 6.25 mg 5-24 1 tab, PO, l oral tablet 14:21: Q12H, # 60 Zen 00 tab, 5 Refill(s), Pharmacy: [facility] #[id number] atorvastati 2018-0 Yes 10 mg = 1 M emoria n 10 mg 5-24 tab, PO, l oral tablet 14:21: Bedtime, # Zen 00 30 tab, 5 Refill(s), Pharmacy: [facility] #[id number] carvedilol 2018-0 No 3.125 mg = M emoria 3.125 mg 4-24 1 tab, PO, l oral tablet 17:20: BID, 0 Herm nora 00 Refill(s) calcitriol 2018-0 Yes 0.25 Memoria 0.25 mcg 4-24 microgram l oral 17:20: = 1 cap, [place] capsule 00 PO, Daily, 0 Refill(s) tamsulosin Yes 0.4 mg = 1 M emoria 0.4 mg oral 4-24 cap, PO, l capsule 17:20: Daily, 0 Oni n 00 Refill(s) metoprolol Yes 50 mg = 1 Me moria tartrate 50 2-06 tab, PO, l mg oral 01:26: Daily [place] tablet 00 carvedilol Yes 12.5 mg = Me moria 12.5 mg 2-06 1 tab, PO, l oral tablet 01:24: BID, WITH H ermann FOOD amLODIPine Yes 10 mg = 1 Me moria 10 mg oral 2-06 tab, PO, l tablet 00:10: Daily, # [place] 00 30 tab, 0 Refill(s) magnesium Yes 400 mg = 1 Me moria oxide 400 2-05 tab, PO, l mg oral 23:05: Daily Zen tablet 00 Metoprolol Yes 25 mg = Jonathan kayden Tartrate 50 2-05 0.5 tab, l mg oral 23:05: PO, BID [place] tablet 00 Glipizide Yes 10 mg = 1 Mem oria 10 MG Oral 2-04 tab, PO, l Tablet 20:52: Daily, 0 [place] 00 Refill(s) pravastatin Yes 80 mg = 1 M emoria 80 mg oral 2-04 tab, PO, l tablet 20:52: Daily, 0 [place] 00 Refill(s) Amlodipine 0 No 10 mg, PO, M emoria 2-04 Daily, 0 l 20:52: Refill(s) [place] 00 Esomeprazol Yes 40 mg = 1 M emoria e 40 MG 2-04 cap, PO, l Enteric 20:52: Daily, 0 Oni n Coated 00 Refill(s) Capsule metoprolol No 100 mg = 1 M emoria 100 mg oral 2-04 tab, PO, l tablet, 20:52: BID, 0 Zen extended 00 Refill(s) release allopurinol Yes 300 mg = 1 Memoria 300 mg oral 2-04 tab, PO, l tablet 20:52: Daily, 0 Zen 00 Refill(s) Doxepin Yes 6 mg, PO, Memor ia 2-04 Bedtime, 0 l 20:52: Refill(s) [place] carvedilol No 3.125 mg = M emoria 3.125 mg 2-04 1 tab, PO, l oral tablet 20:52: BID, 0 Herm nora 00 Refill(s) losartan 25 Yes 25 mg = 1 M emoria mg oral 2-04 tab, PO, l tablet 20:52: Daily, 0 Zen 00 Refill(s) Ranitidine Yes 150 mg = 1 M emoria 150 MG Oral 2-04 tab, PO, l Tablet 20:52: Bedtime, 0 Mehreen nn 00 Refill(s) Adult Yes 81 mg = 1 Memoria Aspirin 81 2-04 tab, CHEW, l mg oral 20:52: Daily, 0 Oni n tablet, 00 Refill(s) chewable potassium No Notes: Memori a phosphate-s 11-03 (Same as: l odium 20:02: Phos-NaK) Zen phosphate 00 Each 1.5 250 mg-45 gm pkt has mg-298 mg 250mg oral tablet phosphorou s. Mix w/2.5oz water and stir. potassium No Notes: Memori a phosphate 11-03 (Same as: l 155 MG / 19:54: K-Phos Zen Sodium 00 Neutral, Phosphate, Phospha Dibasic 852 250 MG / Sodium Neutral) Phosphate, Monobasic 130 MG Oral Tablet [K-Phos Neutral] Magnesium No Notes: Memori a Sulfate 11-03 WASTE: F/P l 19:52: - Sink; E Zen - Municipal Trash Bin GI cocktail No Notes: Jonathan kayden 11-03 G.I. l 15:34: Cocktail = antacid with simethicon e 22.5 mL - lidocaine viscous 7.5 mL Sodium No 1,000 mL, Memori a Chloride 11-03 2,000 l 0.9% IV 15:34: ml/hr, Zen (Sodium 00 Infuse Chloride Over: 30 0.9% minutes, (Bolus) IV) Route: IV, 1,000, Drug form: INJ, ONCE, Priority: STAT, Dosing Weight 118.182 kg, Start date: 11/03/16 10:34:00 CDT, Duration: 1 doses or times, Stop date: 11/03/16 10:34:00 CDT Saline No Notes: Memoria Flush 0.9% 9-04 (Same as: l 15:34: BD [place] Posiflush) clindamycin Yes 300 mg = 1 Memoria 300 mg oral 7-11 cap, PO, l capsule 21:49: TID, X 10 Mehreen nn 00 day, # 30 cap, 0 Refill(s) GI cocktail No Notes: Jonathan kayden 7-11 G.I. l 21:05: Cocktail = [place] 00 antacid with simethicon e 22.5 mL - lidocaine viscous 7.5 mL {21 Yes See Memoria (Methylpred 4-20 Instructio l nisolone 4 21:22: ns, PO, Herm nora MG Oral 00 Take by Tablet mouth as [Medrol]) } directed Pack on label., [Medrol X 6 day, # Dosepak] 1 Pack, 0 Refill(s) Sodium No 1,000 mL, Memori a Chloride 4-20 1,000 l 0.154 17:27: ml/hr, [place] MEQ/ML 00 Infuse Injectable Over: 1 Solution hr, Route: IV, 1,000, Drug form: INJ, ONCE, Priority: STAT, Dosing Weight 118.182 kg, Start date: 06/20/15 12:27:00 CDT, Duration: 1 doses or times, Stop date: 06/20/15 12:27:00 CDT Zofran No Notes: Memoria 4-20 (Same as: l 16:01: Zofran) Zen 00 MEDICATION WASTE Product Size: 4 mg Product Wasted: ___ mg Morphine No Notes: Memoria 4-20 (Same l 16:00: as:MORPhin Zen 00 e Sulfate) Saline No Notes: Memoria Flush 0.9% 4-20 (Same as: l 15:18: BD Zen 00 Posiflush) Aspirin 81 Aspirin 81 Yes Uni vers MG TABS MG TABS ity of [place] Physici ans Allopurinol Allopurinol Yes U nivers 300 MG Oral 300 MG Oral i ty of Tablet Tablet [place] Physici ans Magnesium Magnesium Yes Unive rs 400 MG CAPS 400 MG CAPS i ty of [place] Physici ans Metoprolol Metoprolol Yes Uni vers Tartrate 50 Tartrate 50 i ty of MG Oral MG Oral [place] Tablet Tablet Physici ans Carvedilol Carvedilol Yes Uni vers 3.125 MG 3.125 MG ity of Oral Tablet Oral Tablet [place] Physici ans Tamsulosin Tamsulosin Yes Uni vers HCl 0.4 MG HCl 0.4 MG ity of CP24 CP24 [place] Physici ans raNITIdine raNITIdine Yes Uni vers 150 Max 150 Max ity of Strength Strength [place] TABS TABS Physici ans Calcitriol Calcitriol Yes Uni vers CAPS CAPS ity of [place] Physici ans amLODIPine amLODIPine Yes Uni vers Besylate 10 Besylate 10 i ty of MG Oral MG Oral [place] Tablet Tablet Physici ans Atorvastati Atorvastati Yes U nivers n Calcium n Calcium ity o f 20 MG Oral 20 MG Oral [place] as Tablet Tablet Physici ans Cyclobenzap Cyclobenzap Yes U nivers rine HCl - rine HCl - ity of 10 MG Oral 10 MG Oral [place] as Tablet Tablet Physici ans Vital Signs Vital Name Observation Time Observation Value Comments Source Systolic blood 2019-10-24 136 mm[Hg] Location: [facility] 17:12:00 Position: [place] Physician s Sitting Diastolic blood 2019-10-24 71 mm[Hg] Location: [facility] 17:12:00 Position: [place] Physician s Sitting Body height 2019-10-24 74 [in_us] [facility] :12:00 [place] Physician s Weight 2019-10-24 250 [lb_av] [facility] :: [place] Physician s Body mass index 2019-10-24 32.1 kg/m2 [place] o f (BMI) [Ratio] 17:12:00 [facility] Heart Rate 2019-10-24 60 /min Location: [facility] 17:12: Brachial [place] Physician s Artery; Body temperature 2019-10-24 97.8 [degF] Method: [facility] 17:12: Temporal [place] Physician s Systolic (mm Hg) 2019-04-27 [facility] 14:10:00 Diastolic (mm Hg) 2019-04-27 [facility] H ermann 14:10:00 Heart Rate 2019-04-27 [facility] Oni n 14:10:00 Height 2019-04-27 185.42 cm Memorial Oni n 14:10:00 Weight 2019-04-27 [facility] 14:10:00 BMI Calculated 2019-04-27 [facility] 14:10:00 Systolic (mm Hg) 2019-04-01 [facility] 19:54:00 Diastolic (mm Hg) 2019-04-01 [facility] 19:54:00 Heart Rate 2019-04-01 [facility] 19:54:00 Respitory Rate 2019-04-01 [facility] 19:54:00 Temperature Oral 2019-04-01 97.6 F [facility] (F) 19:54:00 Height 2019-04-01 180.34 cm [facility] 19:54:00 Weight 2019-04-01 [facility] 19:54:00 BMI Calculated 2019-04-01 [facility] 19:54:00 Systolic (mm Hg) 2019-03-16 [facility] 14:08:00 Diastolic (mm Hg) 2019-03-16 [facility] 14:08:00 Heart Rate 2019-03-16 [facility] 14:08:00 Respitory Rate 2019-03-16 [facility] 14:08:00 Height 2019-03-16 183 cm [facility] 14:08:00 Weight 2019-03-16 [facility] 14:08:00 BMI Calculated 2019-03-16 [facility] 14:08:00 Weight 2018-08-20 [facility] 13:35:00 BMI Calculated 2018-08-20 [facility] 13[facility]35:00 Respitory Rate 2018-08-20 [facility] 13:35:00 Temperature Oral 2018-08-20 97.6 F [facility] (F) 13:35:00 Height 2018-08-20 182.88 cm [facility] 13:35:00 Systolic (mm Hg) 2018-08-20 [facility] 13:35:00 Diastolic (mm Hg) 2018-08-20 [facility] 13:35:00 Heart Rate 2018-08-20 [facility] 13:35:00 Temperature Oral 2018-07-23 97.7 F [facility] (F) 13:36:00 Weight 2018-07-23 [facility] 13:36:00 BMI Calculated 2018-07-23 [facility] 13:36:00 Heart Rate 2018-07-23 [facility] 13:36:00 Respitory Rate 2018-07-23 [facility] 13:36:00 Height 2018-07-23 182.88 cm [facility] 13:36:00 Systolic (mm Hg) 2018-07-23 [facility] 13:36:00 Diastolic (mm Hg) 2018-07-23 [facility] 13:36:00 BMI Calculated 2018-07-07 [facility] 19:26:00 Weight 2018-07-07 [facility] 19[facility]26:00 Height 2018-07-07 182.88 cm [facility] 19[facility]26:00 Systolic (mm Hg) 2018-07-07 [facility] 19:26:00 Diastolic (mm Hg) 2018-07-07 [facility] 19:26:00 Temperature Oral 2018-07-07 97.7 F [facility] (F) 19:26:00 Heart Rate 2018-07-07 [facility] 19:26:00 Respitory Rate 2018-07-07 [facility] 19:26:00 Height 2018-07-07 187.96 cm [facility] 14:42:00 Weight 2018-07-07 [facility] 14:42:00 BMI Calculated 2018-07-07 [facility] 14:42:00 Weight 2018-06-23 [facility] 16:27:00 BMI Calculated 2018-06-23 [facility] 16:27:00 Respitory Rate 2018-06-23 [facility] 16:27:00 Heart Rate 2018-06-23 [facility] 16:27:00 Temperature Oral 2018-06-23 97.6 F [facility] (F) 16:27:00 Height 2018-06-23 182 cm [facility] 16:27:00 Systolic (mm Hg) 2018-06-23 [facility] 16:27:00 Diastolic (mm Hg) 2018-06-23 [facility] 16:27:00 Weight 2018-04-06 [facility] 14:49:00 Height 2018-04-06 182 cm [facility] 14:49:00 Respitory Rate 2018-04-06 [facility] 14:49:00 Heart Rate 2018-04-06 [facility] 14:49:00 BMI Calculated 2018-04-06 [facility] 14:49:00 Systolic (mm Hg) 2018-04-06 [facility] 14:49:00 Diastolic (mm Hg) 2018-04-06 [facility] 14:49:00 Respitory Rate 2016-11-03 [facility] 21:15:00 Temperature Oral 2016-11-03 98.3 F [facility] (F) 21:15:00 Systolic (mm Hg) 2016-11-03 [facility] 21[facility]15:00 Diastolic (mm Hg) 2016-11-03 [facility] 21:15:00 Heart Rate 2016-11-03 [facility] 21:15:00 Heart Rate 2016-11-03 [facility] 20:15:00 Systolic (mm Hg) 2016-11-03 [facility] 20:15:00 Diastolic (mm Hg) 2016-11-03 [facility] 20:15:00 Respitory Rate 2016-11-03 [facility] 20:15:00 Respitory Rate 2016-11-03 [facility] 19:32:00 Systolic (mm Hg) 2016-11-03 [facility] 19:32:00 Diastolic (mm Hg) 2016-11-03 [facility] 19:32:00 Temperature Oral 2016-11-03 98.2 F [facility] (F) 19:32:00 Heart Rate 2016-11-03 [facility] 19:32:00 Weight 2016-11-03 [facility] 15:02:00 BMI Calculated 2016-11-03 [facility] 15:02:00 Height 2016-11-03 187.96 cm [facility] 15:02:00 Temperature Oral 2016-11-03 98.0 F [facility] (F) 15:02:00 Systolic (mm Hg) 2015-09-10 [facility] 21:29:00 Diastolic (mm Hg) 2015-09-10 [facility] 21:29:00 Temperature Oral 2015-09-10 98.1 F [facility] (F) 21:29:00 Heart Rate 2015-09-10 [facility] 21:29:00 Respitory Rate 2015-09-10 [facility] 21:29:00 Temperature Oral 2015-09-10 97.7 F [facility] (F) 17:44:00 Respitory Rate 2015-09-10 [facility] 17:44:00 Heart Rate 2015-09-10 [facility] 17:44:00 Systolic (mm Hg) 2015-09-10 [facility] 17:44:00 Diastolic (mm Hg) 2015-09-10 [facility] 17:44:00 Systolic (mm Hg) 2015-06-20 [facility] 20:50:00 Diastolic (mm Hg) 2015-06-20 [facility] 20:50:00 Respitory Rate 2015-06-20 [facility] 20:50:00 Temperature Oral 2015-06-20 98.6 F [facility] (F) 20:50:00 Systolic (mm Hg) 2015-06-20 [facility] 18:31:00 Diastolic (mm Hg) 2015-06-20 [facility] 18:31:00 Respitory Rate 2015-06-20 [facility] 18:31:00 Respitory Rate 2015-06-20 [facility] 18:30:00 Systolic (mm Hg) 2015-06-20 [facility] 17:24:00 Diastolic (mm Hg) 2015-06-20 [facility] ermann 17:24:00 Temperature Oral 2015-06-20 97.7 F [facility] (F) 15:10:00 Weight 2015-06-20 [facility] 15:10:00 Heart Rate 2015-06-20 [facility] 15:10:00 Procedures Procedure Date / Time Performing Source Performed Clinician CT Abdomen/Pelvis w/wo 2019-10-24 00:00:[facility] contrast [id number] Chest wo contrast [id number] 2019-10-24 00:00:00 [facility] Physicians Complex cystometrogram (ie, 2019-04-27 16:16:00 [facility] calibrated electronic equipment); with voiding pressure studies (ie, bladder voiding pressure) and urethral pressure profile studies (ie, urethral closure pressure profile), any technique Electromyography studies 2019-04-27 16:16:00 [facility] orial [place] (EMG) of anal or urethral sphincter, other than needle, any technique Cystourethroscopy (separate 2019-04-27 16:16:00 [facility] procedure) Injection procedure for 2019-04-27 16:16:00 Jonathan rial Zen cystography or voiding urethrocystography Voiding pressure studies, 2019-04-27 16:16:00 Ny moribarbara Zen intra-abdominal (ie, rectal, gastric, intraperitoneal) (List separately in addition to code for primary procedure) Complex uroflowmetry (eg, 2019-04-27 16:16:00 Ny morial Zen calibrated electronic equipment) Measurement of post-voiding 2019-04-27 16:15:00 [facility] and/or bladder capacity by ultrasound, non-imaging History of Abdominal aortic [facility] aneurysm repair Physicians AAA - Repair of abdominal Troy Mcclure aortic aneurysm using bifurcation graft Plan of Care Planned Activity Planned Date Details Comments Source Future Appointment 2020-04-23 08:30:00 Bibi DUKES, [facility] Physicians Future Appointment 2020-01-04 14:00:00 Bibi DUKES, [facility]icians Encounters Start End Encounter Admission Attending Care Care Encounter Source Date/Time Date/Time Type Type Clinicians Facility Department ID 2018-06-23 Inpatient [facility] [id number] [facility] 10:22:21 2019-10-24 2019-10-24 Appointmen SILVINO COSME [facility] Urology - [id number] [facility] 09:45:00 09:45:00 linda COSME M.D. [facility] julian DUKES M.D. [facility] Physici ans 2019-05-09 2019-05-09 Outpatient [facility] [id number] [facility] 15:00:00 15:00:00 2019-04-27 2019-04-27 Outpatient Silvino Cosme [facility] [id number] 08:30:00 23:59:59 02 2019-04-27 2019-04-27 Outpatient Silvino Cosme [facility] [id number] 08:00:00 23:59:59 00 2019-04-27 2019-04-27 Outpatient Silvino Cosme [facility] [id number] 08:00:00 23:59:59 01 2019-03-16 2019-04-14 Outpatient JESS Blackman [facility] [id number] 06:50:00 23:59:00 Arnaldo 05 Vikas 2019-04-01 2019-04-01 Outpatient Yehuda, [facility] [id number] 06:40:00 23:59:00 Arnaldo 06 Vikas 2019-04-01 2019-04-01 Outpatient [facility] [id number] [facility] 06:40:00 06:40:00 2019-03-16 2019-03-16 Appointmen [facility]GAN[facility]SP [facility] UTP [id number] [facility] 08:30:00 08:30:00 t; [place] o f [facility] [place], OP Physic i ans 2019-03-16 2019-03-16 Outpatient [facility] CAR [id number] [facility] 06:50:00 06:50:00 2018-08-20 2018-09-18 Outpatient Yehuda, [facility] [id number] 08:05:00 23:59:00 Arnaldo 03 Vikas 2018-08-20 2018-08-20 Outpatient [facility] CAR [id number] [facility] 08:05:00 08:05:00 2018-07-07 2018-08-05 Outpatient Yehuda, [facility] [id number] 09:33:00 23:59:00 Arnaldo 01 Vikas 2018-06-23 2018-07-22 [facility] [id number] 10:27:00 23:59:00 Ana 2018-07-07 2018-07-08 Outpatient [id number] 08:31:02 23:59:59 [id number] 2018-07-07 2018-07-07 Outpatient [facility] PUL [id number] [facility] 09:33:00 09:33:00 2018-06-30 2018-06-30 [facility] [id number] 11:19:00 23:59:00 Ana 2018-06-29 2018-06-29 Appointmen STEVEN [facility] UTP [id number] Univers 14:00:00 14:00:00 t; W, ity of [place]IR[place] YURIHamzah ROSS M.D. Physici KRISTOFER, ans M.D. 2018-06-23 2018-06-23 Outpatient [id number] 10:27:00 10:27:00 2018-06-23 2018-06-23 Appointmen AYDEN KODY UTP [id number] Univers 10:00:00 10:00:00 t; ANA DEJESUS ity of [place], M.D. [place] M.D. Physici ans 2018-06-08 2018-06-08 Appointmen ROXANNAGAVIN [facility] UTP [id number] Univers 10:00:00 10:00:00 t; [place], M.D. Physici KRISTOFER, ans M.D. 2018-05-12 2018-05-12 [facility] [id number] 08:51:00 23:59:00 Katey Ruffin 2018-04-06 2018-05-05 [facility] [id number] 08:35:00 23:59:00 Raulito Haque 2017-09-23 2017-09-23 Outpatient Monet, MHOIP MHOIP [id number] 08:00:00 08:00:00 Lucila 02 [place] 2016-11-03 2016-11-03 Outpatient Iona, [facility] [id number] 10:01:00 16:46:00 Damion 03 2015-09-10 2015-09-10 Outpatient Gemma, [facility] [id number] 12:33:00 17:04:00 Brigido Manning 2015-06-20 2015-06-20 Outpatient Norberto, [facility] [id number] 10:02:00 17:07:00 Geraldo 01 [place] 2014-06-05 2014-06-05 Outpatient MONIKA Lugo MHIE [id number] 10:20:00 23:59:00 Segundo Puga Results Test Description Test Time Test Comments Results Result Comments Source URINE AND STOOL 2019-04-27 [facility] 14:05:00 *NA*(04/27/19 [facility] 8:05 AM) URINE AND STOOL 2019-04-27 [facility] 14:05:00 *NA*(04/27/19 [place] 8:05 AM) URINE AND STOOL 2019-04-27 14:05:00 Test Item Value Reference Range Interpretation Comme nts POC UA SG (test code = POC UA SG) 1.015 1 [facility] WHMAO9223-27-18 14:05:00 Test Item Value Reference Range Interpretation Comments POC UA pH (test code = POC UA pH) 6.0 1 5.0-8.0 [facility] [id number] 14:05:00Negative *NA*(04/27/19 8:05 AM) [facility] ADPJV9073-73-61 14:05:00Trace *ABN*(04/27/19 8:05 AM) [facility] CTBHV9933-34-44 14:05:000.2[facility] VOLBO8418-19-00 14:05:00Negative *NA*(04/27/19 8:05 AM)[facility] BVIHO2393-09-13 14:05:00Negative *NA*(04/27/19 8:05 AM)[facility]annANEMIA ZBVWQ3009-87-26 13:10:82138Limykagd HermannANEMIA ADEWR9540-82-54 13:10:0046 [facility] BLWKS3812-11-91 13:10:77039Ypagzqqx HermannANEMIA STUDY 2019-03-16 13:10:77643Alwfrsld HermannANEMIA SRYJN0016-10-73 13:10:0015[facility]annCHE[facility] BWMWW2791-71-66 13:10:0074[facility]annCHE[facility] TMVDJ1130-43-89 13:10:0043[facility]annCHE[facility] FEFJC3539-62-28 13:10:004.40[facility]ann[facility] VINPO3362-16-31 13:10:89426Nrdyjggs HermannCHEM BGYWI7710-78-99 13:10:003.9 [facility]annCHE[facility] WERYN5902-72-11 13:10:61011Cjwcsbta HermannCHEM PANEL 2019-03-16 13:10:0026[facility]annCHE[facility] TECWH3484-40-44 13:10:008.5[facility]annCHE[facility] AXZPD0761-28-20 13:10:007.5[facility]annCHE[facility] XFLUD4156-37-97 13:10:003.4[facility]annCHE[facility] KZHRV3235-32-94 13:10:0016[facility]annCHE[facility] KMLMA2635-26-98 13:10:0011[facility]annCHE[facility] KCKKH3289-45-09 13:10:0068 [facility] OJQEV0690-89-07 13:10:000.3[facility]annCHEM PANEL 2019-03-16 13:10:0011.9[facility]annCHE[facility] KMXYC9300-90-75 13:10:00 Test Item Value Reference Range Interpretation Comments B/C Ratio (test code = B/C Ratio) 10 1 6-25 [facility] CSQMW9421-01-27 13:10:004.1[facility]annCHE[facility] PANEL 2019-03-16 13:10:00 Test Item Value Reference Range Interpretation Comments A/G Ratio (test code = A/G Ratio) 0.8 1 0.7-1.6 [facility]ann[facility] FKTEX0124-40-03 13:10:0013[facility]annCHE[facility] PANEL 2019-03-16 13:10:001.2[facility]annCHE[facility] LZTRW1869-72-27 13:10:003.9[facility]annCHE[facility] UQAEE7010-60-62 13:10:007.1[facility]annCHE[facility] PGDNW3306-90-34 13:10:0042.0[facility]annCHE[facility] FSOAF0878-61-98 13:10:24920Eusglakq HermannCHEM FJVSV3811-92-82 13:10:004.39[facility]annCHE[facility] ZBPAV7961-71-89 13:10:0013 [facility]boornrFAFHOJEXOW0063-28-74 13:10:00 Test Item Value Reference Range Interpretation Comments PT (test code = PT) 12.8 s 12.0-14.7 [facility]kggkjyZRLXOAUTHC1388-78-80 13:10:00 Test Item Value Reference Range Interpretation Comments INR (test code = INR) 0.96 1 0.85-1.17 [facility] OlxcrdjNXOOBLKMNR4089-42-59 13:10:00 Test Item Value Reference Range Interpretation Comments PTT (test code = PTT) 33.5 s 22.9-35.8 [facility] FrfrgglOGNJJHTEXF2655-79-89 13:10:008.5[facility] HermannHEMATOLOGY 2019-03-16 13:10:004.31[facility] YsobmeeYVSQMAIGDI2498-19-03 13:10:0012.6[facility] JoypdrwPUFPAUUYHF4686-65-31 13:10:0039.5[facility] LniuahlFTWFVFNNOD4973-41-80 13:10:0091.6[facility] EejhpadLPBNCSPMKH1540-01-68 13:10:00 Test Item Value Reference Range Interpretation Comments MCH (test code = MCH) 29.3 pg 27.0-31.0 [facility] ZkcidyqXLSLHIIIQA0719-67-89 13:10:0032.0[facility] HermannHEMATOLOGY 2019-03-16 13:10:0015.5[facility] WvjhkifXJPXZTJLZI7614-44-61 13:10:88803Mlkkjtyz NhcfrfiQWJNFDABAY5710-22-82 13:10:009.0[facility] KdwhofnDIDPNTAUGR6741-23-77 13:10:97182Oflqxbis NrxfnexFHMOYVYFBN0046-65-94 13:10:00Negative (03/16/19 7:10 AM)[facility] NnxnezqIZWXIFFCRE0113-87-58 13:10:00 Test Item Value Reference Range Interpretation Comments dRVV Ratio (test code = dRVV Ratio) 1.26 1 [facility] CilxfncAGMJQPPHWU0240-33-37 13:10:00Negative (03/16/19 7:10 AM)[facility] OzhtdfjFQZAZLRFUQ6693-90-15 13:10:00Negative (03/16/19 7:10 AM)[facility] XUCHVGJVFY9401-33-66 13:10:61741Esjtjbmi XyqdriaFUNWJIFPYU0288-39-34 13:10:12156 [facility] ZagucodZUJVDWXYZQ8995-89-07 13:10:0058.7[facility] HermannHEMATOLOGY 2019-03-16 13:10:0030.5[facility] TstbyjbAXUCIKRMAG5376-39-64 13:10:008.0[facility] MsczmonMSRBNQVSHR9492-38-59 13:10:002.2[facility] QlkkryzXJYIZIIMJW3389-31-18 13:10:000.6[facility] AyvflxtWOLZXHEYOY6186-32-26 13:10:005.0[facility] RDQUVMMMQP5086-12-81 13:10:002.6[facility] DjicslwSMLGIOZIKR7948-23-24 13:10:000.7 [facility] RujnypaNTSNDSNCOD2513-95-66 13:10:000.2[facility] HermannIMMUNOLOGY 2019-03-16 13:10:003.70[facility] TgfvdbeGWZTRMUHEI2069-27-94 13:10:00<0.5 [facility] AibxlapTHOJCCYNLH7970-86-58 13:10:00<1.6[facility] HermannIMMUNOLOGY 2019-03-16 13:10:000.8[facility] NutbewqJUJIOCKZPC2787-06-78 13:10:0016.5[facility] AzxxvqrLTKZEUQHRE0725-22-34 13:10:0051.0[facility] RatwlltIMNCPJIMWX1434-29-16 13:10:008.6[facility] HwpmbcuQNBAMJOFUZ9768-27-51 13:10:0014.6[facility] IHHDMUKOJF6437-26-51 13:10:0012.4[facility] VggyvizWQYBEOTMZS1429-32-54 13:10:00 13.4[facility] HpnobevVFQZOYCNPW9748-99-72 13:10:003.83[facility]annIMMUNOLOGY 2019-03-16 13:10:000.65[facility] YcxatglQGBYOMJUNR3696-99-26 13:10:001.10[facility] AyzwqyoDUWYGFYWJA6166-22-05 13:10:000.93[facility] InvdyalEDBIMXQPXY0803-96-16 13:10:001.01[facility] GbpsltyOWVHZEYEGI9431-35-84 13:10:007.5[facility] [place] DBYPDGLZBH5136-61-25 13:10:73204.41[facility] WeddlquQNQQEBYAKE6820-80-87 13:10:00 40.85[facility] JqxxihySIJNIHKAIQ2109-25-73 13:10:002.70[facility] HermannIMMUNOLOGY 2019-03-16 13:10:00Reactive *ABN*(03/16/19 7:10 AM)[facility]annIMMUNOLOGY 2019-03-16 13:10:00>8.0[facility] LehqvgqZPJNFTEBPP1663-22-01 13:10:00Negative *NA*(03/16/19 7:10 AM)[facility] KlgruchCGYVJKYUJD6559-31-46 13:10:00Positive *NA*(03/16/19 7:10 AM)[facility] JwabdzhCTDTDCUMST8314-20-57 13:10:00<3.1 [facility] OgcusrdUJXRHXLUZU5941-81-63 13:10:00Negative *NA*(03/16/19 7:10 AM) [facility] YvdnykfTVFWCAPDUY3133-81-50 13:10:00Negative *NA*(03/16/19 7:10 AM) [facility] IqonkjiBTLVOEMAUO3940-43-42 13:10:00Negative *NA*(03/16/19 7:10 AM) [facility] JvcthnoGCFKOIZHFC4305-95-52 13:10:00<0.2[facility] HermannIMMUNOLOGY 2019-03-16 13:10:00>8.0[facility] XrjmzljEWZPTQYHQG5606-57-00 13:10:00Negative (03/16/19 7:10 AM)[facility] GyrzgwcNLKTWTQDGX4273-94-61 13:10:00Non-Reactive *NA*(03/16/19 7:10 AM)[facility] AnepddvBVYOXEUPBM3007-40-33 13:10:00<0.2 [facility] BicovqpKBVXQAEVFX6591-63-97 13:10:005.1[facility] HermannIMMUNOLOGY 2019-03-16 13:10:00<0.2[facility] PxoisgvAZQQNJQVFC7807-61-32 13:10:002.0 [facility] HlcwomuCLCTQK3770-62-16 13:10:19173Ljijgmkw SbrlmtnKDQYNY0708-77-87 13:10:73772Neqgilms TyywjzxOOPOTG0606-51-50 13:10:0040[facility] HermannLIPIDS 2019-03-16 13:10:00 Test Item Value Reference Range Interpretation Comments CHD Risk (test code = CHD Risk) 4.58 1 4.00-7.30 [facility] TkqomjkPSPINO8574-02-66 13:10:20408Tylulbfz WislkyxQHETCV4214-19-19 13:10:00 Test Item Value Reference Range Interpretation Comments VLDL (test code = VLDL) 28 1 [facility] HermannPARATHYROID OVIXTJK5807-15-67 13:10:54477.6[facility] [place] SPECIAL KUDOXBGFQ8896-81-96 13:10:006.1[facility] HermannSPECIAL CHEMISTRY 2019-03-16 13:10:001.34[facility] AND MNSZJ4760-51-86 13:10:001 [facility] JTGLD4661-44-94 13:10:001[facility] CZLBL7593-14-86 13:10:00Yellow *NA*(03/16/19 7:10 AM)[facility] PPUBY1043-96-00 13:10:00Clear (03/16/19 7:10 AM)[facility] STOOL 2019-03-16 13:10:00 Test Item Value Reference Range Interpretation Comments UA Spec Grav (test code = UA Spec 1.010 1 Grav) [facility] UFADU0516-73-92 13:10:00 Test Item Value Reference Range Interpretation Comments UA pH (test code = UA pH) 6.0 1 5.0-8.0 [facility] VMAFI4891-83-56 13:10:00Negative *NA*(03/16/19 7:10 AM) [facility] NAOBP0529-10-78 13:10:00Negative *NA*(03/16/19 7:10 AM) [facility] BAWUI8092-84-37 13:10:00Trace *ABN*(03/16/19 7:10 AM) [facility] DREEI7047-76-02 13:10:000.2[facility] YHFPZ0226-60-38 13:10:00Negative (03/16/19 7:10 AM)[facility] LCCNX5268-24-97 13:10:00Negative (03/16/19 7:10 AM)[facility] KURBZ9291-92-99 13:10:00None Seen (03/16/19 7:10 AM)[facility] CHEM 2019-03-16 13:10:0074.20[facility] DWAY1610-66-30 13:10:52412.0 [facility] EWCH9104-05-10 13:10:129743.2[facility] CHEM 2019-03-16 13:10:0074.20[facility] RKDG1478-48-25 13:10:32969.5 [facility] EEMO3139-24-85 13:10:00 Test Item Value Reference Range Interpretation Comments U Prot/Creat (test code = U 2.01 1 Prot/Creat) [facility] ASKB1694-39-78 13:10:0074.20[facility] CHEM 2019-03-16 13:10:97570.0[facility] PHRS0701-99-40 13:10:442194.2 [facility] FxfgxqrXOTACEQCQX0264-09-17 16:49:221504Xbsiwtdb HermannIMMUNOLOGY 2018-06-29 16:49:695625Odokfpsa TqvwtslPTCUDPHWRX6603-25-71 16:49:0053[facility] HermannCHEM CSLHZ5048-01-12 17:46:73097Zojwqdlf HermannCHEM ZRNJB0273-92-43 17:46:009.6[facility] SifkgkaSCMJTZFMJW0791-19-14 17:46:0032.9[facility] VAQBWKCLCS7269-73-24 17:46:28025Zokukikh KnekpurYRJSASWBLW6078-53-46 17:46:00 16.3[facility] UkorgavOYDPPYHEUU8381-15-43 17:46:009.1[facility] HermannHEMATOLOGY 2018-06-23 17:46:0013.2[facility] YbzqwoeNMWQVSWHUF6550-17-53 17:46:0040.2[facility] KgvtwfbREZANRGHNH3069-09-06 17:46:0087.8[facility] NpmukdaHMUPDKNBSQ7603-75-73 17:46:00 Test Item Value Reference Range Interpretation Comments MCH (test code = MCH) 28.9 pg 27.0-31.0 [facility] ZtcyonrVXNKYBDJSW5081-58-76 17:46:009.9[facility] HermannHEMATOLOGY 2018-06-23 17:46:004.58[facility] CohnljfYWJFICUJEZ9717-40-26 17:46:000.2[facility] PgbtaezTQMAOZSPQV4120-84-51 17:46:000.1[facility] AzvkatdTPIZMQELPH4499-74-96 17:46:000.7[facility] NsdijcgERYDGNBDOV9083-85-77 17:46:006.6[facility] OEMCVUWDNR6366-83-49 17:46:002.4[facility] QxngzogVRYPNQKJBG5645-84-29 17:46:000.6 [facility] VblvuofLODBYBLFFJ0393-29-05 17:46:0066.7[facility]annHEMATOLOGY 2018-06-23 17:46:006.3[facility] IifcnchCTETGNECLV0127-14-09 17:46:0024.3[facility] EsfjeyvGARCHPIOQT3336-81-68 17:46:002.0[facility] MrcechmJCEXOXHICZ1805-74-93 17:46:002.17[facility] ZxdxjpnZZBNJUYYDA9652-69-37 17:46:0092.69[facility] NGHOXHZICO7853-82-17 17:46:0042.69[facility] HermannANEMIA ZKOOB7398-81-10 14:50:96351Chiixdcb HermannANEMIA AFAVT3180-66-56 14:50:41961Qtlutktn [place] ANEMIA BEPRQ7555-16-72 14:50:0015[facility]annANEMIA PHERX8610-98-74 14:50:00 46[facility]annANEMIA RFVOR2014-22-41 14:50:99553Wkvzbbkt HermannCHEM PANEL 2018-04-06 14:50:0036.8[facility]annCHEM KKKVN3927-97-46 14:50:007.3[facility]annCHEM WAFZE0007-57-59 14:50:003.4[facility]annCHEM XFEOE7243-58-82 14:50:002.0[facility]annCHEM IXYUS1765-49-39 14:50:008.17[facility]annCHEM VCTSM8059-72-43 14:50:00 Test Item Value Reference Range Interpretation Comments A/G Ratio (test code = A/G Ratio) 0.9 1 0.7-1.6 [facility]annCHE[facility] NQLFZ1871-16-36 14:50:00 Test Item Value Reference Range Interpretation Comments B/C Ratio (test code = B/C Ratio) 9 1 6-25 [facility]annCHE[facility] VTOEU5009-06-03 14:50:0012.4[facility]annCHEM PANEL 2018-04-06 14:50:004.2[facility]annCHEM ZKPIZ1821-97-16 14:50:0014[facility]annCHEM MLIDQ8927-61-01 14:50:0012[facility]annCHEM JWJWP5760-40-86 14:50:0070[facility]annCHEM HWPFE3337-48-89 14:50:008[facility]annCHE[facility] QEHSF4181-04-88 14:50:003.7[facility]annCHEM NNTNN0784-00-04 14:50:000.3 [facility]annCHE[facility] ATEWX3822-42-81 14:50:0083[facility]annCHEM PANEL 2018-04-06 14:50:17976Ipjqxjme HermannCHEM DNCAG5721-04-47 14:50:0035[facility]annCHEM PGXRI0790-96-19 14:50:004.10[facility]annCHEM PYOHJ3376-35-53 14:50:0025[facility]annCHEM OZSJM3768-18-63 14:50:009.7[facility]annCHEM QODLU3873-66-05 14:50:004.4[facility]annCHEM FDQCW1690-56-09 14:50:60448 [facility]annCHE[facility] CSGAF5255-04-83 14:50:007.9[facility]annHEMATOLOGY 2018-04-06 14:50:000.1[facility] EgtkhgpROMORNGPUK4691-94-91 14:50:0068.2[facility] AgwhxgiREBUTMSAUP4899-57-84 14:50:0020.5[facility] SmxrpqkYJYLSUJDLQ6352-70-51 14:50:006.0[facility] XpxmlpbFCKHOXKLJH0129-96-69 14:50:000.6[facility] WKIJADDLSP7808-17-10 14:50:001.8[facility] DiyjtyaEPUQYRFBRB5400-03-84 14:50:003.2 [facility] ZdqrcicMKCNXYLLXL7692-83-36 14:50:007.5[facility]annHEMATOLOGY 2018-04-06 14:50:000.3[facility] ItstrqwWPHQUOUTKU2568-82-42 14:50:000.7[facility] JxpxwnsQZSKYXECCD4730-79-96 14:50:0013.3[facility] YrrzjxwPZWXUUPLPH0985-11-49 14:50:0041.1[facility] PxebyjxJBUYPYIRTI0925-90-36 14:50:0088.4[facility] UFGBJZUQNR2623-99-95 14:50:00 Test Item Value Reference Range Interpretation Comments MCH (test code = MCH) 28.7 pg 27.0-31.0 [facility] GldfcutJSTAKPNNAT0773-65-63 14:50:004.65[facility]annHEMATOLOGY 2018-04-06 14:50:0014.6[facility] FjvxfvlBOVFDXKCMC0907-66-48 14:50:0032.5[facility] UsqdiquNGVQUUTPRE6205-34-97 14:50:69929Zlohoody XxohqeaSETMQUDMTL6730-43-89 14:50:009.0[facility] XvyjwrgDNWEFJWRIH1347-48-76 14:50:008.8[facility] [place] XWWXTOJCCM0825-83-04 14:50:00 Test Item Value Reference Range Interpretation Comments INR (test code = INR) 0.96 1 0.85-1.17 [facility] LpeaxinUJYORPZEJT2346-49-87 14:50:00 Test Item Value Reference Range Interpretation Comments PT (test code = PT) 12.6 s 12.0-14.7 [facility] QgotpihUWAKWJFWBH0747-12-31 14:50:00 Test Item Value Reference Range Interpretation Comments PTT (test code = PTT) 34.7 s 22.9-35.8 [facility] UtvpiifAEOMOKULYK3678-48-74 14:50:00Non-Reactive *NA*(04/06/18 8:50 AM) [facility] ZxjjdjdIRQOVEQOAJ4333-87-89 14:50:00<0.91[facility] HermannIMMUNOLOGY 2018-04-06 14:50:00<0.2[facility] LfbonvtPJARAMTNGM0546-46-13 14:50:00Negative *NA*(04/06/18 8:50 AM)[facility] LatkyojNAGFGHJBRL6194-71-45 14:50:00>8.0[facility] GzdbearJQCYBHIVOZ5300-34-94 14:50:00<0.2[facility] VkackytKOYSJYXHUT5417-18-08 14:50:0066.41[facility] ZiwslnpMDVTYDLMZS6840-11-78 14:50:001.66[facility] KDTXNFRLIY0282-18-67 14:50:49779.34[facility] TwofvuaFDFVZBSRFE1401-68-14 14:50:00 Negative *NA*(04/06/18 8:50 AM)[facility] DffahrfEGREXBCNQB5468-81-50 14:50:00 Negative (04/06/18 8:50 AM)[facility] IlnqmclYLMCZPHEEC8027-50-64 14:50:000.99 [facility] RloxgrxJRBWRZWISW5655-02-50 14:50:001.28[facility] HermannIMMUNOLOGY 2018-04-06 14:50:007.9[facility] BlkaicvXIQDDLPPTI1608-58-08 14:50:004.25[facility] FysocixHLCOPPDTOT1514-07-50 14:50:0016.2[facility] GuojbujBSSWSYRYXZ1061-60-11 14:50:000.43[facility] LzbyaowBZSKMDBBWE5881-78-36 14:50:000.96[facility] HELIYAKFEJ3247-34-34 14:50:005.4[facility] OjvaolpGGDOLUEXUN3320-00-22 14:50:00 53.8[facility] YtsiynaGSBSKIWBGM5611-05-17 14:50:0012.5[facility] HermannIMMUNOLOGY 2018-04-06 14:50:0012.1[facility] LjqcyaiPICSNWSJVX9983-41-10 14:50:00<0.2 [facility] IcvkvrgHCDHJBFCLR1966-58-19 14:50:00>8.0[facility] HermannIMMUNOLOGY 2018-04-06 14:50:005.2[facility] LqbzqryJDDKDFAPEA4832-91-85 14:50:00Negative *NA*(04/06/18 8:50 AM)[facility] NlvjtnaUAGQHIPFBS6330-36-05 14:50:00Negative *NA*(04/06/18 8:50 AM)[facility] HygamitNNHSGIWLJC4394-30-45 14:50:00Reactive *ABN*(04/06/18 8:50 AM)[facility] MiyzvmwCFPAKRWGBM8247-85-01 14:50:000.3[facility] BqjkgyyAOCYPN7247-51-53 14:50:00 Test Item Value Reference Range Interpretation Comments VLDL (test code = VLDL) 36 1 [facility] SbioypmPVDFVB9442-98-77 14:50:15974Ldznbfjs PgzvfmfTCACZR3076-16-99 14:50:80384Xlflepsi IwpqqjrXBNUVF9831-09-36 14:50:30106Egtugprc HermannLIPIDS 2018-04-06 14:50:0031[facility] JtkuoddXIUNEV6734-37-08 14:50:00 Test Item Value Reference Range Interpretation Comments CHD Risk (test code = CHD Risk) 6.42 1 4.00-7.30 [facility]annMOLECULAR GMNXHTUVST7842-05-73 14:50:00<1.3[facility] [place] MOLECULAR RWZZFCNKPI3545-71-12 14:50:00Not Detected (04/06/18 8:50 AM)[facility] HermannPARATHYROID AUZNLRH1570-53-19 14:50:44355.7[facility] HermannSPECIAL NIIIQRXCF6328-93-72 14:50:006.5[facility]annSPECIAL SYYZIQKYF9073-03-77 14:50:001.00[facility]annUR[facility] AND USGAN5308-47-87 14:50:00Clear (04/06/18 8:50 AM)[facility] ZUNZQ4965-18-27 14:50:00Yellow *NA*(04/06/18 8:50 AM)[facility] HXJPW4892-00-03 14:50:00 Test Item Value Reference Range Interpretation Comments UA pH (test code = UA pH) 5.5 1 5.0-8.0 [facility] OFYKZ4643-70-89 14:50:00 Test Item Value Reference Range Interpretation Comments UA Spec Grav (test code = UA Spec 1.009 1 Grav) [facility] OJVBQ7638-40-41 14:50:001[facility] RJUSD1337-88-68 14:50:00Negative (04/06/18 8:50 AM)[facility] STOOL 2018-04-06 14:50:00Negative (04/06/18 8:50 AM)[facility] STOOL 2018-04-06 14:50:00Trace *ABN*(04/06/18 8:50 AM)[facility] STOOL 2018-04-06 14:50:00Negative *NA*(04/06/18 8:50 AM)[facility] CHEM 2018-04-06 14:50:59644.0[facility] HBZN5019-73-07 14:50:04308.7 [facility] VSJW7270-35-92 14:50:00 Test Item Value Reference Range Interpretation Comments U Prot/Creat (test code = U 0.78 1 Prot/Creat) [facility] MQJO1797-27-42 14:50:40592.00[facility] RLRWP6373-72-53 16:40:000.2[facility] PWWKU5094-36-06 16:40:00 Negative (11/03/16 11:40 AM)[facility] CLTXK9064-54-93 16:40:00 Negative (11/03/16 11:40 AM)[facility] LBTDH7104-83-56 16:40:00 Test Item Value Reference Range Interpretation Comments UA pH (test code = UA pH) 5.5 1 5.0-8.0 [facility] XDTHZ7759-20-75 16:40:00Negative (11/03/16 11:40 AM) [facility] FZUVP9998-08-62 16:40:00Moderate *ABN*(11/03/16 11:40 AM)[facility] XQUXT2845-81-67 16:40:00Negative *NA*(11/03/16 11:40 AM)[facility] IUDFH5982-30-26 16:40:00Negative *NA*(11/03/16 11:40 AM)[facility] EDRLL5139-64-14 16:40:00Yellow *NA*(11/03/16 11:40 AM)[facility] UYTZH6333-66-69 16:40:00 Test Item Value Reference Range Interpretation Comments UA Spec Grav (test code = UA Spec 1.020 1 Grav) [facility] FNEZB5960-93-73 16:40:00Clear (11/03/16 11:40 AM) [facility] YSLVH4346-51-42 16:40:000-2 (11/03/16 11:40 AM)[facility]annCARDIAC SHVTNML5619-85-17 15:41:00<0.02[facility] HermannCHEM PANEL 2016-11-03 15:41:001.5[facility] HermannCHEM YKVHH0724-54-03 15:41:002.0[facility] HermannCHEM EREXM6585-60-24 15:41:0023[facility] HermannCHEM QRHSX7488-08-31 15:41:0011[facility]annCHEM ZHKYT0908-38-01 15:41:000.5[facility] HermannCHEM TEIKJ2341-73-79 15:41:008.3[facility] HermannCHEM DVFBY9967-38-29 15:41:0022 [facility]annCHEM OHSAE0210-31-93 15:41:008.7[facility] HermannCHEM PANEL 2016-11-03 15:41:003.9[facility] HermannCHEM FXWTB3389-29-71 15:41:01746Vojirbfv HermannCHEM EZZKV6686-24-33 15:41:002.82[facility] HermannCHEM FWVQG0274-11-22 15:41:12240Udtxlotd HermannCHEM TIGRA8187-84-78 15:41:0030[facility]annCHEM GFWUI7035-77-91 15:41:89899Iespidgy HermannCHEM QOWPB5886-58-66 15:41:003.6 [facility]annCHEM ZPGYN4881-57-01 15:41:0073[facility] HermannCHEM PANEL 2016-11-03 15:41:0016[facility] HermannCHEM BFPYH7207-63-28 15:41:000.8[facility]annCHEM NKTZF8429-50-00 15:41:0011[facility] HermannCHEM DVQRG5221-93-27 15:41:004.7[facility]annCHEM NISTS5831-39-67 15:41:0012.9[facility]annCHEM CJUWH6779-64-64 15:41:62815Rpazafqr WshraxyPYZJAYYRKV2848-63-61 15:41:0075.6 [facility] UhauqqwFRJNSWOKJL2946-82-44 15:41:000.1[facility] HermannHEMATOLOGY 2016-11-03 15:41:000.9[facility] PhckqmoAQFNUPNTAR7681-33-71 15:41:000.2[facility] ApxmeuoZCPXTYZCZL5686-79-63 15:41:001.8[facility] DhghpejOUSLPITAJT2920-35-03 15:41:000.6[facility] PhqawftKQZDWFXWOV0401-44-99 15:41:0014.5[facility] WUDWIUOADE9007-17-31 15:41:007.5[facility] JgxrszcPPIBTJODTR4183-48-77 15:41:009.4 [facility] FuexmpcDDBMXJYXUT1118-14-85 15:41:001.8[facility] HermannHEMATOLOGY 2016-11-03 15:41:0088.5[facility] TanzpzmEYYRSYKLFU3768-25-34 15:41:00 Test Item Value Reference Range Interpretation Comments MCH (test code = MCH) 29.3 pg 27.0-31.0 [facility] CojxqmqANHVVSBRUA9989-53-04 15:41:0040.7[facility] HermannHEMATOLOGY 2016-11-03 15:41:0033.2[facility] JonkphcMKPQBXHCDD2279-17-20 15:41:0015.1[facility] UaukylsPRDQLQUOGO6418-69-76 15:41:0013.5[facility] SyyqzbsZNJECEVIFD8446-73-90 15:41:0012.5[facility] DjupffrUVRTCCWXKG2133-69-86 15:41:004.60[facility] DCYIMGCRLI7017-24-13 15:41:008.7[facility] MszuaehVZUUPZJAVY7068-49-69 15:41:10305 [facility]annCHEM AUAID7401-62-49 18:55:0013[facility] HermannCHEM PANEL 2015-09-10 18:55:003.9[facility] HermannCHEM IOVUT8917-87-63 18:55:000.9[facility] HermannCHEM IQBAR5743-95-04 18:55:008.6[facility] HermannCHEM ELJIB4341-91-00 18:55:0027[facility]annCHEM MGCLB9934-52-04 18:55:55391Nfdblcoq HermannCHEM BYXEW2263-81-37 18:55:004.6[facility] HermannCHEM ELGIF7066-23-68 18:55:002.45 [facility]annCHEM HEUCP4053-77-52 18:55:29251Mdxikvlt HermannCHEM PANEL 2015-09-10 18:55:0028[facility]annCHEM IPWPJ6768-36-70 18:55:003.5[facility]annCHEM YKRSY5020-44-38 18:55:0060[facility]annCHEM UOYLC6191-86-01 18:55:0031[facility]annCHEM JWXFR6035-43-47 18:55:0081[facility]annCHEM THDKC2107-11-77 18:55:000.4[facility] HermannCHEM OCHVG8077-75-30 18:55:007.4 [facility]annCHEM WAOLJ9535-13-36 18:55:008.5[facility] HermannCHEM PANEL 2015-09-10 18:55:0015[facility] HermannCHEM BXMOL8038-13-34 18:55:0012[facility] BswdmutFPRXWSEJDO7438-23-18 18:55:002.6[facility] JbgqdkdNIASUKLXIO1206-97-82 18:55:0023.1[facility] OsjclotALEXTDUUNU2193-37-41 18:55:009.4[facility] LGFJTMRJBS0450-22-80 18:55:000.2[facility] UnpbnvwSPNHKJCDWR7281-64-03 18:55:000.1 [facility] RaizewjHXAMGFTNCD7035-34-98 18:55:000.8[facility] HermannHEMATOLOGY 2015-09-10 18:55:001.8[facility] LzyekliLTCQHCMABG5308-64-23 18:55:000.7[facility] LokxobiWCKFATWMAB5835-13-50 18:55:005.0[facility] RvoalcxRAVJEUBBSS5823-50-23 18:55:0064.1[facility] EoctsohRQAWZANGUX0965-91-43 18:55:71197Nlxfyicn [place] ODJPDBZVRI9313-59-90 18:55:008.5[facility] RmpdloxWOLWWNOQEU1389-19-56 18:55:00 17.0[facility] DkkraacPIDGPFYRSC6209-47-99 18:55:0032.5[facility] HermannHEMATOLOGY 2015-09-10 18:55:0089.4[facility] BeumckpHIFJGWHOZC1749-78-38 18:55:004.19[facility] YznghpzVGGEGHWDTV5700-50-68 18:55:00 Test Item Value Reference Range Interpretation Comments MCH (test code = MCH) 29.1 pg 27.0-31.0 [facility] WkieidjKKNKMQDNWC1863-19-36 18:55:0037.5[facility] HermannHEMATOLOGY 2015-09-10 18:55:0012.2[facility] YjvrbycUXSWHNFULV2267-69-00 18:55:007.8[facility] UuzsyyjOTKKE4879-41-17 18:55:00Negative (09/10/15 1:55 PM)[facility] VGZFS4569-96-07 16:22:00Negative (06/20/15 11:22 AM)[facility] JEHZG1726-34-88 16:22:000.2[facility] THIWH0305-65-08 16:22:00 Negative (06/20/15 11:22 AM)[facility] WXSRX4629-67-12 16:22:00 Negative (06/20/15 11:22 AM)[facility] LADBW4402-43-89 16:22:00 Negative (06/20/15 11:22 AM)[facility] PRTVX4942-65-69 16:22:00 Negative *NA*(06/20/15 11:22 AM)[facility] QXPOR8785-19-43 16:22:00Negative *NA*(06/20/15 11:22 AM)[facility] YJZOL0527-49-05 16:22:00Yellow *NA*(06/20/15 11:22 AM)[facility] PKHQP0478-80-46 16:22:00Clear (06/20/15 11:22 AM)[facility] YBYES1253-76-16 16:22:00 Test Item Value Reference Range Interpretation Comments UA pH (test code = UA pH) 6.0 1 5.0-8.0 [facility] DPDZU0795-88-54 16:22:00 Test Item Value Reference Range Interpretation Comments UA Spec Grav (test code = UA Spec 1.010 1 Grav) [facility]annCARDIAC ZPGDMFS4930-18-97 15:37:00<1.7[facility]annCARDIAC OUBCNWO5447-86-89 15:37:0029[facility]annCARDIAC DTHNCYY5467-44-42 15:37:00 <0.02[facility]annCARDIAC WYGUFHK4987-44-95 15:37:00<0.5[facility] HermannCHEM QRLIC6527-16-15 15:37:0027[facility] HermannCHEM GFBZY3104-43-75 15:37:000.7[facility] HermannCHEM ORDCY0839-73-06 15:37:0012[facility] HermannCHEM DTCGX2005-53-65 15:37:004.5[facility] HermannCHEM VGQDQ3165-07-69 15:37:0012 [facility]annCHEM DMXVT7353-89-99 15:37:0012.2[facility] HermannCHEM PANEL 2015-06-20 15:37:95890Iukfzgrt HermannCHEM FFZKM1444-80-70 15:37:004.2[facility] HermannCHEM LAKRQ4285-69-94 15:37:0029[facility]annCHEM HJUCE7786-71-81 15:37:002.47[facility]annCHEM OEMQH3529-29-54 15:37:0023[facility]annCHEM ZWPSP0632-83-93 15:37:007.8[facility]annCHEM YABYB7491-92-31 15:37:009.0 [facility]annCHEM NXZPH3581-91-15 15:37:000.5[facility]annCHEM PANEL 2015-06-20 15:37:0028[facility] HermannCHEM GHRUG9518-82-26 15:37:80630Ppwhmeqq HermannCHEM MSGSK4370-41-87 15:37:32598Uvlhfqrp HermannCHEM YOQTH2058-69-11 15:37:0057[facility]annCHEM UBEYA4812-16-11 15:37:003.3[facility] ULOCAKQYQX3036-80-18 15:37:000.6[facility] FmxklwdHCTDXUHSIP6130-60-96 15:37:00 13.7[facility] IxteofkCSOKFRNXHC7357-57-26 15:37:001.4[facility]annHEMATOLOGY 2015-06-20 15:37:0010.4[facility] OzscwqjWJNVJCHVBY7068-46-43 15:37:000.1[facility] QuhnfxzJBUUDNRMNN3531-34-17 15:37:000.2[facility] MsrrhhxGEEDWTOVCS1489-41-07 15:37:008.3[facility] OjaasrnWEROXDKNZM8375-02-75 15:37:001.5[facility] VAXAIBKAMB0370-42-75 15:37:001.2[facility] AdiqgnmQVQQIPXIHY8487-17-36 15:37:00 73.9[facility] MalrvhiTSRIRVADZM9913-89-23 15:37:00 Test Item Value Reference Range Interpretation Comments MCH (test code = MCH) 28.3 pg 27.0-31.0 [facility]azuCPPFFHAUHF6640-41-77 15:37:0088.6[facility]annHEMATOLOGY 2015-06-20 15:37:0013.4[facility] NptsgpwCVLJCUYWWI0935-75-27 15:37:0031.9[facility] JbwvaqrZIMHPFGXYI9535-91-02 15:37:0011.3[facility] OkbdudiCXVKMETDPP7530-94-01 15:37:0039.5[facility] VvncbtbMBTIGBYFIA4865-13-85 15:37:0012.6[facility] CBYSVZRCMC2016-99-89 15:37:004.46[facility] OhjmaayPPMAPLHBVS4325-75-19 15:37:00 321[facility] KftzaisCNEHOYTTPS4453-38-30 15:37:008.5[facility]annHEMATOLOGY 2015-06-20 15:37:00 Test Item Value Reference Range Interpretation Comments aPTT (test code = aPTT) 32.0 s 22.9-35.8 [facility] 15:37:001.00[facility]annHEMATOLOGY 2015-06-20 15:37:00 Test Item Value Reference Range Interpretation Comments PROTIME (test code = PROTIME) 13.5 s 12.0-14.7 [facility]
--- NOTE | 2019-11-14 18:23 | RAD REPORT ---
EXAM DESCRIPTION: RAD - Chest Single View - 11/14/2019 6:14 pm CLINICAL HISTORY: COUGH Chest pain. COMPARISON: Chest Single View dated 04/09/2018; Chest Pa And Lat (2 Views) dated 03/31/2018; Chest Sing le View dated 06/21/2017; Chest Single View dated 05/05/2017 FINDINGS: Portable technique limits examination quality. The lungs are grossly clear. The heart is normal in size. No displaced fractures. IMPRESSION: No acute intrathoracic process suspected.
[2019-11-14 18:37] LABS: Protime INR 1.12
[2019-11-14 18:39] LABS: Absolute Lymphocytes (CBC) 1.9 K/uL (0.7-4.9); Basophils % 0.7 % (0-1.3); Hematocrit 28.7 % (39.6-49.0); Lymphocytes % 22.9 % (15.3-44.8); MPV 9.8 fL (7.6-11.3); RBC Red Blood Cell Count 3.16 M/uL (4.33-5.43)
[2019-11-14 19:12] LABS: Albumin 3.2 g/dL (3.4-5.0); Bilirubin Direct 0.2 mg/dL (0-0.2); Bilirubin Total 0.4 mg/dL (0.2-1.0); Magnesium 1.5 mg/dL (1.8-2.4); Potassium 4.1 mmol/L (3.5-5.1); Protein, Total 7.2 g/dL (6.4-8.2)
--- NOTE | 2019-11-14 19:28 | ER ---
Nurse's Notes [facility] Name: Stan Jimenes Age: 64 yrs Sex: Male : 1955 Arrival Date: 11/14/2019 Time: 16:07 Bed 5 Private MD: Diagnosis: Acute kidney failure;Hypomagnesemia Presentation: 11/13 16:11 Chief complaint: Patient states: Feeling tired x 3 - 4 days, no energy and sleep all ca1 the time. Reports kidney problems and sees Dr. Velasquez. Reports productive cough 3 - 4 days, reports whitish sputum. Denies any pain. Denies burning with urination. Reports urinary frequency. Coronavirus screen: Client denies travel out of the [place] in the last 14 days. cough unrelated to allergies, fatigue. Coronavirus screen: Client presents with at least one sign or symptom that may indicate coronavirus-19. Standard/surgical mask placed on the client. Provider contacted for isolation considerations. Ebola Screen: Patient negative for fever greater than or equal to 101.5 degrees Fahrenheit, and additional compatible Ebola Virus Disease symptoms Patient denies exposure to infectious person. Patient denies travel to an Ebola-affected area in the 21 days before illness onset. No symptoms or risks identified at this time. Initial Sepsis Screen: Does the patient meet any 2 criteria? No. Patient's initial sepsis screen is negative. Does the patient have a suspected source of infection? No. Patient's initial sepsis screen is negative. Risk Assessment: Do you want to hurt yourself or someone else? Patient reports no desire to harm self or others. Onset of symptoms was November 14, 2019. 16:11 Method Of Arrival: Ambulatory ca1 16:11 Acuity: CHAVA 3 ca1 Historical: - Allergies: 16:18 No Known Allergies; ca1 - Home Meds: 16:26 aspirin 81 mg Oral TbEC 1 tab once daily [Active]; allopurinol 300 mg oral tab 1 tab ca1 once daily [Active]; magnesium oxide 400 mg Oral tab 400 mg daily [Active]; metoprolol tartrate 25 mg Oral tab 1 tab 2 times per day [Active]; carvedilol 3.125 mg oral tab 1 tab 2 times per day [Active]; tamsulosin 0.4 mg Oral cp24 1 cap once daily [Active]; ranitidine HCl 150 mg Oral tab 1 tab once daily [Active]; calcitriol 0.25 mcg Oral cap 1 cap [Active]; amlodipine 10 mg tab 1 tab once daily [Active]; atorvastatin 10 mg oral tab 1 tab once daily [Active]; - PMHx: 16:18 AAA; Aneurysm; COPD; Diabetes - NIDDM; High Cholesterol; Hypertension; POLYCYSTIC ca1 KIDNEY DISEASE; - PSHx: 16:18 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 - Social history:: Smoking status: Patient/guardian denies using tobacco, the patient reports quitting approximately 13 years ago. Screenin:23 Abuse screen: Denies threats or abuse. Nutritional screening: No deficits noted. ll2 Tuberculosis screening: No symptoms or risk factors identified. Fall Risk None identified. Assessment: 17:20 General: Appears in no apparent distress. Behavior is calm, cooperative, appropriate ll2 for age. Pain: Denies pain. Neuro: Level of Consciousness is awake, alert, obeys commands, Oriented to person, place, time, situation. Cardiovascular: Capillary refill < 3 seconds Patient's skin is warm and dry. Respiratory: Airway is patent Respiratory effort is even, unlabored, Respiratory pattern is regular, symmetrical, Sputum is pt reports coughing up thick white sputum. GI: No signs and/or symptoms were reported involving the gastrointestinal system. : Reports urinary frequency, Denies burning with urination. EENT: No signs and/or symptoms were reported regarding the EENT system. Derm: Skin is intact, is healthy with good turgor, Skin is dry, Skin is pink, warm \T\ dry. Skin temperature is warm. Musculoskeletal: Circulation, motion, and sensation intact. Range of motion: intact in all extremities. 18:28 Reassessment: No changes from previously documented assessment. Patient and/or family ll2 updated on plan of care and expected duration. Pain level reassessed. Patient is alert, oriented x 3, equal unlabored respirations, skin warm/dry/pink. 19:21 Reassessment: Xiang Jimenes, pt daughter requesting a fall call to update on pt status sg for admission or discharge due to distance they live from the facility, call back number of [phone]. 19:40 Reassessment: Xiang Jimenes, pt daughter, notified pt to be admitted per pt request, sg pt daughter stated understanding, will continue to monitor. 21:15 Reassessment: No changes from previously documented assessment. Patient and/or family ll2 updated on plan of care and expected duration. Pain level reassessed. Patient is alert, oriented x 3, equal unlabored respirations, skin warm/dry/pink. provided meal tray. 22:15 Reassessment: Patient and/or family updated on plan of care and expected duration. Pain ea level reassessed. Patient is alert, oriented x 3, equal unlabored respirations, skin warm/dry/pink. 22:24 Reassessment: Patient and/or family updated on plan of care and expected duration. Pain ea level reassessed. Patient is alert, oriented x 3, equal unlabored respirations, skin warm/dry/pink. Pt admitted to second floor. Report called to receiving nurse. Pt left via wheelchair per generator technician. Pt tolerating well. Vital Signs: 16:11 BP 166 / 85; Pulse 58; Resp 16 S; Temp 98.5(TE); Pulse Ox 99% on R/A; Weight 117.03 kg ca1 (R); Height 6 ft. 2 in. (187.96 cm); Pain 0/10; 17:22 BP 151 / 73; Pulse 50; Resp 14; Pulse Ox 98% on R/A; Pain 0/10; ll2 18:27 BP 151 / 78; Pulse 65; Resp 25; Pulse Ox 100% on R/A; ll2 19:45 BP 143 / 86; Pulse 65; Resp 18; Pulse Ox 100% on R/A; ea 20:15 BP 148 / 73; Pulse 58; Resp 18; Pulse Ox 97% on R/A; ea 21:15 BP 169 / 81; Pulse 74; Resp 24; Pulse Ox 96% on R/A; ll2 22:14 BP 149 / 72; Pulse 65; Resp 18; Pulse Ox 98% ; ea 16:11 Body Mass Index 33.12 (117.03 kg, 187.96 cm) ca1 ED Course: 16:07 Patient arrived in ED. ag5 16:17 Triage completed. ca1 16:18 Arm band placed on right wrist. ca1 16:51 Pascual Wilson PA is PHCP. jr8 16:51 Jimmie Holland MD is Attending Physician. jr8 17:08 Linscombe, Marianne, RN is Primary Nurse. ll2 17:23 Patient has correct armband on for positive identification. Bed in low position. Call ll2 light in reach. Side rails up X 1. Pulse ox on. NIBP on. 18:15 XRAY Chest (1 view) In Process Unspecified. EDMS 18:17 Inserted saline lock: 20 gauge in right antecubital area, using aseptic technique. bp Blood collected. 19:28 Negro Flores DO is Hospitalizing Provider. jr8 21:44 No provider procedures requiring assistance completed. Patient admitted, IV remains in ea place. Administered Medications: 19:47 Drug: Magnesium Sulfate 2 grams Route: IVPB; Infused Over: 2 hrs; Site: right ea antecubital; 21:16 Follow up: Response: No adverse reaction; IV Status: Completed infusion ll2 Outcome: 19:28 Decision to Hospitalize by Provider. jr8 21:44 Condition: stable ea 21:52 Instructed on the need for admit. ea 22:14 Admitted to Med/surg accompanied by tech, room 214, with chart, Report called to ea Receiving nurse on second floor. 22:24 Patient left the ED. sg Signatures: Dispatcher [employer] EDMS Cedric Manley RN Pascual Marrero PA PA jr8 Catalina Worley, RN Nestor Allen ea, RN RN bp Acob, Cheryl, RN RN ca1 Gaskin, Ajare ag5 Marianne Jeffery, RN RN ll2
--- NOTE | 2019-11-14 19:28 | EDPHYS ---
Physician Documentation [facility] Name: Stan Jimenes Age: 64 yrs Sex: Male : 1955 Arrival Date: 11/14/2019 Time: 16:07 Bed 5 Private MD: ED Physician Jimmie Holland HPI: 11/13 18:22 This 64 yrs old Male presents to ER via Ambulatory with complaints of Fatigue.jr8 18:22 Patient stated that for the past few days has felt very fatigued and sleepy. Has had jr8 mild cough. Denies any other symptoms. History of PKD. Told his cw operator who referred him to ED to make sure labs were ok . Severity of symptoms: At their worst the symptoms were mild in the emergency department the symptoms are unchanged. The patient has not experienced similar symptoms in the past. The patient has not recently seen a physician. Historical: - Allergies: 16:18 No Known Allergies; ca1 - Home Meds: 16:26 aspirin 81 mg Oral TbEC 1 tab once daily [Active]; allopurinol 300 mg oral tab 1 tab ca1 once daily [Active]; magnesium oxide 400 mg Oral tab 400 mg daily [Active]; metoprolol tartrate 25 mg Oral tab 1 tab 2 times per day [Active]; carvedilol 3.125 mg oral tab 1 tab 2 times per day [Active]; tamsulosin 0.4 mg Oral cp24 1 cap once daily [Active]; ranitidine HCl 150 mg Oral tab 1 tab once daily [Active]; calcitriol 0.25 mcg Oral cap 1 cap [Active]; amlodipine 10 mg tab 1 tab once daily [Active]; atorvastatin 10 mg oral tab 1 tab once daily [Active]; - PMHx: 16:18 AAA; Aneurysm; COPD; Diabetes - NIDDM; High Cholesterol; Hypertension; POLYCYSTIC ca1 KIDNEY DISEASE; - PSHx: 16:18 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 - Social history:: Smoking status: Patient/guardian denies using tobacco, the patient reports quitting approximately 13 years ago. ROS: 18:22 Eyes: Negative for injury, pain, redness, and discharge, ENT: Negative for injury, jr8 pain, and discharge, Neck: Negative for injury, pain, and swelling, Cardiovascular: Negative for chest pain, palpitations, and edema, Abdomen/GI: Negative for abdominal pain, nausea, vomiting, diarrhea, and constipation, Back: Negative for injury and pain, MS/Extremity: Negative for injury and deformity, Skin: Negative for injury, rash, and discoloration, Neuro: Negative for headache, weakness, numbness, tingling, and seizure. 18:22 Constitutional: Positive for fatigue. 18:22 Respiratory: Positive for cough, with clear sputum, Negative for dyspnea on exertion, shortness of breath, wheezing. Exam: 18:22 Eyes: Pupils equal round and reactive to light, extra-ocular motions intact. Lids and jr8 lashes normal. Conjunctiva and sclera are non-icteric and not injected. Cornea within normal limits. Periorbital areas with no swelling, redness, or edema. ENT: Nares patent. No nasal discharge, no septal abnormalities noted. Tympanic membranes are normal and external auditory canals are clear. Oropharynx with no redness, swelling, or masses, exudates, or evidence of obstruction, uvula midline. Mucous membranes moist. Neck: Trachea midline, no thyromegaly or masses palpated, and no cervical lymphadenopathy. Supple, full range of motion without nuchal rigidity, or vertebral point tenderness. No Meningismus. Cardiovascular: Regular rate and rhythm with a normal S1 and S2. No gallops, murmurs, or rubs. Normal PMI, no JVD. No pulse deficits. Respiratory: Lungs have equal breath sounds bilaterally, clear to auscultation and percussion. No rales, rhonchi or wheezes noted. No increased work of breathing, no retractions or nasal flaring. Abdomen/GI: Soft, non-tender, with normal bowel sounds. No distension or tympany. No guarding or rebound. No evidence of tenderness throughout. Back: No spinal tenderness. No costovertebral tenderness. Full range of motion. Skin: Warm, dry with normal turgor. Normal color with no rashes, no lesions, and no evidence of cellulitis. MS/ Extremity: Pulses equal, no cyanosis. Neurovascular intact. Full, normal range of motion. Neuro: Awake and alert, GCS 15, oriented to person, place, time, and situation. Cranial nerves II-XII grossly intact. Motor strength 5/5 in all extremities. Sensory grossly intact. Cerebellar exam normal. Normal gait. 18:24 ECG was reviewed by the Attending Physician. [facility] Vital Signs: 16:11 BP 166 / 85; Pulse 58; Resp 16 S; Temp 98.5(TE); Pulse Ox 99% on R/A; Weight 117.03 kg ca1 (R); Height 6 ft. 2 in. (187.96 cm); Pain 0/10; 17:22 BP 151 / 73; Pulse 50; Resp 14; Pulse Ox 98% on R/A; Pain 0/10; ll2 18:27 BP 151 / 78; Pulse 65; Resp 25; Pulse Ox 100% on R/A; ll2 19:45 BP 143 / 86; Pulse 65; Resp 18; Pulse Ox 100% on R/A; ea 20:15 BP 148 / 73; Pulse 58; Resp 18; Pulse Ox 97% on R/A; ea 21:15 BP 169 / 81; Pulse 74; Resp 24; Pulse Ox 96% on R/A; ll2 22:14 BP 149 / 72; Pulse 65; Resp 18; Pulse Ox 98% ; ea 16:11 Body Mass Index 33.12 (117.03 kg, 187.96 cm) ca1 MDM: 16:53 Patient medically screened. [facility] 19:26 Data reviewed: vital signs, nurses notes, lab test result(s), EKG, radiologic studies, jr8 plain films. Data interpreted: Pulse oximetry: on room air is 100 %. Interpretation: normal. Counseling: I had a detailed discussion with the patient and/or guardian regarding: the historical points, exam findings, and any diagnostic results supporting the discharge/admit diagnosis, lab results, radiology results, the need for further work-up and treatment in the hospital. Physician consultation: Ned Velasquez MD was called at 19:27, was contacted at 19:27, regarding consult, patient's condition, wants to admit for obs and lightly hydrate to see if it improves BUN and Creatinine. . 11/13 17:52 Order name: Basic Metabolic Panel; Complete Time: 19:18 11/13 17:52 Order name: CBC with Diff; Complete Time: 18:53 11/13 17:52 Order name: LFT's; Complete Time: 19:18 11/13 17:52 Order name: Magnesium; Complete Time: 19:18 11/13 17:52 Order name: NT PRO-BNP; Complete Time: 19:18 11/13 17:52 Order name: PT-INR; Complete Time: 18:53 11/13 17:52 Order name: XRAY Chest (1 view); Complete Time: 18:26 11/13 17:52 Order name: EKG; Complete Time: 17:53 11/13 17:52 Order name: Cardiac monitoring; Complete Time: 18:16 11/13 17:52 Order name: EKG - Nurse/Tech; Complete Time: 18:16 11/13 17:52 Order name: CORONAVIRUS (COVID-19) 11/13 19:06 Order name: Urine Dipstick--Ancillary (enter results); Complete Time: 19:48 mw2 11/13 21:36 Order name: SARS-COV-2 RT PCR; Complete Time: 21:50 EDMS 11/13 17:52 Order name: IV Saline Lock; Complete Time: 18:16 11/13 17:52 Order name: Labs collected and sent; Complete Time: 18:16 11/13 17:52 Order name: O2 Per Protocol; Complete Time: 18:01 11/13 17:52 Order name: O2 Sat Monitoring; Complete Time: 18:00 11/13 18:57 Order name: Urine Dipstick-Ancillary (obtain specimen); Complete Time: 19:16 jr8 EC:24 Rate is 55 beats/min. Rhythm is regular, Sinus bradycardia with Occasional PVCs. QRS 8 [place] is Normal. LA interval is prolonged at 218 msec. QRS interval is normal at 84 msec. QT interval is normal at 432 msec. Q waves are Present in leads V1, V2. T waves are Normal. No ST changes noted. Clinical impression: 1st degree heart block and Septal NH - age indeterminate. Interpreted by me. Reviewed by me. Administered Medications: 19:47 Drug: Magnesium Sulfate 2 grams Route: IVPB; Infused Over: 2 hrs; Site: right ea antecubital; 21:16 Follow up: Response: No adverse reaction; IV Status: Completed infusion ll2 Disposition: 11/14 08:18 Co-signature as Attending Physician, Jimmie Holland MD I agree with the assessment and mendez plan of care. Disposition: 11/14/19 19:28 Hospitalization ordered by Negro Flores for Observation. Preliminary diagnosis are Acute kidney failure, Hypomagnesemia. - Bed requested for Telemetry/MedSurg (observation). - Status is Observation. sg - Condition is Stable. - Problem is new. - Symptoms are unchanged. Signatures: Dispatcher [employer] EDWA Griselda Garduno RN RN Cedric Manley RN RN sg Jimmie Holland MD MD cha Roszak, Josh, GILBERTO MACIAS jr8 Catalina Worley RN RN ea Acob, Cheryl, RN RN [facility] Marianne Jeffery RN ll2 Corrections: (The following items were deleted from the chart) 11/13 17:54 17:53 BASIC METABOLIC PANEL+C.LAB.BRZ ordered. [facility] 21:38 19:28 Hospitalization Ordered by Negro Flores DO for Observation. Preliminary diagnosis is Acute kidney failure; Hypomagnesemia. Bed requested for Telemetry/MedSurg (observation). Status is Observation. Condition is Stable. Problem is new. Symptoms are unchanged. jr8 22:24 21:38 11/14/2019 19:28 Hospitalization Ordered by Negro Flores DO for Observation. Preliminary diagnosis is Acute kidney failure; Hypomagnesemia. Bed requested for Telemetry/MedSurg (observation). Status is Observation. Condition is Stable. Problem is new. Symptoms are unchanged. mw
[2019-11-14 19:34] LABS: Urine Blood TRACE (NEG); Urine Glucose NEGATIVE (NEG); Urine Protein 2+ (NEG)
--- NOTE | 2019-11-14 20:11 | P.HP ---
Certification for Inpatient Patient admitted to: Observation With expected LOS: <2 Midnights Patient will require the following post-hospital care: None Practitioner: I am a practitioner with admitting privileges, knowledge of patient current condition, hospital course, and medical plan of care. Services: Services provided to patient in accordance with Admission requirements found in Title 42 Section 412.3 of the Code of Federal Regulations <Parish John - Last Filed: 11/14/19 20:00> Patient admitted to: Observation <Negro Flores - Last Filed: 11/15/19 12:30> Patient History Date of Service: 11/14/19 Primary Care Provider: Jules- nephclive Pichardo Reason for admission: Acute on chronic renal insufficiency History of Present Illness: 64-year-old male with history of polycystic kidney disease with chronic kidney disease, hypertension, hyperlipidemia, COPD, AAA repair, GERD, diabetes mellitus type 2 presents emergency department for malaise and fatigue for the past 3-4 days. Patient denies any pain, nausea, vomiting, diarrhea, fevers. No other symptoms reported. Patient was evaluated in the emergency department and found to have worsening renal function in comparison to previous labs. Patient's creatinine currently is 5, GFR is down to 11 with previous GFR in the 16-20 range. Cloth Winder Machine Operator was consulted while patient was in the emergency department and wishes to admit patient for observation with gentle hydration ordered additional labs and repeat chemistry in the morning. ED provider wishes to admit patient for observation. When I saw the patient in the emergency department he was awake, alert, orient x3. Patient denies any pain, nausea, vomiting, diarrhea, fevers. Vital signs within normal limits at this time. Will admit patient for observation. - Past Medical/Surgical History Diabetic: Yes -: Hypertension -: Hyperlipidemia -: Aortic aneurysm stent -: Polycystic kidney disease -: Chronic kidney disease -: GERD -: Diabetes mellitus type 2 -: COPD -: AAA repair Psychosocial/ Personal History: Patient is , has 2 children and is now retired. - Family History dad -: Diabetes, Kidney disease - Social History Smoking Status: Never smoker Alcohol use: No CD- Drugs: No Caffeine use: Yes Place of Residence: Home <Parish John - Last Filed: 11/14/19 20:00> Date of Service: 11/15/19 Home medications list reviewed: Yes <Negro Flores - Last Filed: 11/15/19 12:30> Allergies No Known Allergies Allergy (Verified 03/27/17 10:06) Home Medications: Amlodipine [Norvasc*] 5 mg PO DAILY 11/15/19 Atorvastatin Calcium [Lipitor*] 20 mg PO BEDTIME 11/15/19 Calcitriol [Rocaltrol] 1 tab PO DAILY 11/15/19 Carvedilol [Coreg] 25 mg PO DAILY 11/15/19 Doxazosin [Cardura*] 1 tab PO DAILY 11/15/19 Fluticasone/Vilanterol [Breo Ellipta 100-25 Mcg INH] 1 puff IN DAILY 11/15/19 Magnesium Oxide [Mag 0X*] 400 mg PO DAILY 11/15/19 Tadalafil [Cialis] 1 tab PO BEDTIME 11/15/19 Review of Systems 10-point ROS is otherwise unremarkable General: Weakness, Malaise, Other (Fatigue) <Parish John - Last Filed: 11/14/19 20:00> Physical Examination - Physical Exam General: Alert, In no apparent distress HEENT: Atraumatic, PERRLA, Mucous membr. moist/pink Neck: Supple, 2+ carotid pulse no bruit Respiratory: Clear to auscultation bilaterally, Normal air movement Cardiovascular: Regular rate/rhythm, Normal S1 S2 Gastrointestinal: Normal bowel sounds, No tenderness Musculoskeletal: No tenderness Integumentary: No rashes Neurological: Normal speech, Normal strength at 5/5 x4 extr, Normal tone, Normal affect - Studies Laboratory Data (last 24 hrs) 11/14/19 18:10: PT 13.2 H, INR 1.12 11/14/19 18:10: WBC 8.5, Hgb 9.1 L, Hct 28.7 L, Plt Count 161 11/14/19 18:10: Sodium 143, Potassium 4.1, BUN 42 H, Creatinine 5.12 H*, Glucose 79, Magnesium 1.5 L, Total Bilirubin 0.4, AST 4 L, ALT 11 L, Alkaline Phosphatase 51 <Parish John - Last Filed: 11/14/19 20:00> - Studies Laboratory Data (last 24 hrs) 11/14/19 18:10: PT 13.2 H, INR 1.12 11/14/19 18:10: WBC 8.5, Hgb 9.1 L, Hct 28.7 L, Plt Count 161 11/14/19 18:10: Sodium 143, Potassium 4.1, BUN 42 H, Creatinine 5.12 H*, Glucose 79, Magnesium 1.5 L, Total Bilirubin 0.4, AST 4 L, ALT 11 L, Alkaline Phosphatase 51 <Negro Flores - Last Filed: 11/15/19 12:30> Assessment and Plan - Plan Assessment Acute on chronic renal insufficiency secondary to polycystic kidney disease with hematurea Hypertension Diabetes mellitus type 2 Hyperlipidemia COPD GERD AAA S/P repair with stent in place Plan Acute on chronic renal insufficiency secondary to polycystic kidney disease with hematurea: Nephrology consulted in case discussed. Continue with gentle hydration overnight. Have ordered a uric acid, CPK, renal ultrasound as last renal ultrasound was in 2018. Patient currently stage V. renal disease with baseline stage IV renal disease. Appreciate further input from nephrology. DVT prophylaxis heparin 5000 units twice daily. Hypertension: Obtain and continue patient's home medications. Patient was able to provide a couple of his medications which were started. Will reconcile medications. Diabetes mellitus type 2: A.c. HS Accu-Cheks scale insulin therapy. Hyperlipidemia: Continue patient's home medication COPD: Obtain and continue patient's home medication, continue with Dulera and albuterol at this time. GERD: Obtain and continue patient's home medications. AAA S/P repair with stent in place: Stable this time, no abdominal pain reported. Will monitor closely. Discharge Plan: Home Plan to discharge in: 24 Hours - Advance Directives Does patient have a Living Will: No Does patient have a Durable POA for Healthcare: No - Code Status/Comfort Care Code Status Assessed: Yes (Patient is full code) Critical Care: No Time Spent Managing Pts Care (In Minutes): 55 <Parish John - Last Filed: 11/14/19 20:00> - Plan Case discussed in detail with nurse practitioner. Agree with assessment, evaluation and plan of care. Case also discuss with nephrology. Patient has significantly improved. Will plan for discharge. Please see discharge summary for details. <Negro Flores - Last Filed: 11/15/19 12:30>
[2019-11-14 22:31] VITALS: BMI 31.8
[2019-11-14] MEDS ORDERED: ATORVASTATIN 10 MG TAB PO SCH (22:52)
[2019-11-14] MEDS ORDERED: ALBUTEROL INHALER 60 PUFF/8 GM IH PRN (22:52)
[2019-11-14] MEDS: INSULIN -REGULAR HUMAN 50 UNIT/0.5 ML ML SQ SCH (22:52)
[2019-11-14] MEDS ORDERED: NA CHLORIDE 0.9% 1,000 ML IV SCH (22:52)
[2019-11-14] MEDS ORDERED: ONDANSETRON 4 MG/2 ML VIAL IV PRN (22:52)
[2019-11-14] MEDS: DULERA 100/5 (MOMETASONE/FORMOTEROL) INHALER IH SCH (22:52)
[2019-11-14] MEDS ORDERED: ACETAMINOPHEN 500 MG TAB PO PRN (22:52)
[2019-11-14 23:44] LABS: Urine Appearance CLEAR; Urine Bilirubin NEGATIVE (NEG); Urine Blood TRACE (NEG); Urine Color YELLOW; Urine Glucose TRACE (NEG); Urine Protein 2+ (NEG); Urine Specific Gravity <=1.005 (1.005-1.030); Urine Urobilinogen 0.2 mg/dL (0.2-1.0)
[2019-11-14 23:45] LABS: Urine Microscopic Reflex ORDER UMIC
[2019-11-15] MEDS: HEPARIN 5000 UNIT/ML 1 ML VIAL SQ SCH ×2 (00:09→08:45)
[2019-11-15 01:30] LABS: Urine Bacteria <20 /HPF (NONE SEEN); Urine Culture Reflex Order NOT NEEDED; Urine RBC <5 /HPF (NONE SEEN)
[2019-11-15 04:44] LABS: Absolute Lymphocytes (CBC) 1.6 K/uL (0.7-4.9); Basophils % 0.9 % (0-1.3); Hematocrit 30.2 % (39.6-49.0); Lymphocytes % 21.8 % (15.3-44.8); MPV 9.6 fL (7.6-11.3); RBC Red Blood Cell Count 3.35 M/uL (4.33-5.43)
[2019-11-15 05:14] LABS: Potassium 4.4 mmol/L (3.5-5.1); Thyroid Stimulating Hormone 3.46 uIU/mL (0.360-3.740); Uric Acid 3.5 mg/dL (3.5-7.2)
[2019-11-15 05:39] LABS: Magnesium 1.9 mg/dL (1.8-2.4)
[2019-11-15] MEDS ORDERED: METOPROLOL TAR 25 MG TAB PO SCH (06:00)
[2019-11-15] MEDS: INSULIN -REGULAR HUMAN 50 UNIT/0.5 ML ML SQ SCH ×2 (07:30→11:30)
--- NOTE | 2019-11-15 08:29 | RAD REPORT ---
EXAM DESCRIPTION: US - Renal Ultrasound-Complete - 11/15/2019 8:03 am CLINICAL HISTORY: Acute renal insufficiency COMPARISON: None. FINDINGS: The right kidney measures 14 cm with an increased echotexture. Little normal renal parench yma visualized The left kidney measures 14 cm with an increased echotexture. Little normal renal parenchyma visualiz ed Many cysts within each kidney. No hemorrhage visualized. Hydronephrosis is not seen. No gross abnormality of bladder is seen IMPRESSION: Increased renal echotexture consistent with parenchymal disease Polycystic kidney disease
[2019-11-15] MEDS: DULERA 100/5 (MOMETASONE/FORMOTEROL) INHALER IH SCH ×2 (08:46→12:13)
[2019-11-15] MEDS ORDERED: AMLODIPINE 10 MG TAB PO SCH (09:00)
[2019-11-15] MEDS ORDERED: MAGNESIUM OXIDE 400 MG TAB PO SCH (09:00)
[2019-11-15] MEDS ORDERED: DOXAZOSIN 2 MG TAB PO SCH (09:00)
[2019-11-15] MEDS ORDERED: ASPIRIN EC 81 MG TAB PO SCH (09:00)
[2019-11-15] MEDS ORDERED: allopurinoL 300 MG TAB PO SCH (09:00)
[2019-11-15] MEDS ORDERED: carvediloL 25 MG TAB PO SCH (09:00)
[2019-11-15] MEDS ORDERED: DOXAZOSIN 1 MG TAB PO SCH (09:00)
--- NOTE | 2019-11-15 12:24 | P.DS ---
Admission Date: 11/14/19 Discharge Date: 11/15/19 Primary Care Provider: Jules- keyonna Pichardo Disposition: ROUTINE DISCHARGE Discharge Condition: GOOD Reason for Admission: Acute on chronic renal insufficiency Consultations: Nephrology-Dr. Velasquez Procedures: CXR: FINDINGS: Portable technique limits examination quality. The lungs are grossly clear. The heart is normal in size. No displaced fractures. IMPRESSION: No acute intrathoracic process suspected. Renal US: FINDINGS: The right kidney measures 14 cm with an increased echotexture. Little normal renal parenchyma visualized The left kidney measures 14 cm with an increased echotexture. Little normal renal parenchyma visualized Many cysts within each kidney. No hemorrhage visualized. Hydronephrosis is not seen. No gross abnormality of bladder is seen IMPRESSION: Increased renal echotexture consistent with parenchymal disease Polycystic kidney disease Medical problem list: Acute on chronic renal disease stage 5 with history of polycystic disease Hypomagnesemia Hypertension Hyperlipidemia COPD GERD AAA S/P repair with stent in place Brief History of Present Illness: 64-year-old male with multiple medical problems including stage 5 re nal disease related to polycystic disease. Patient had been noticing increased fatigue and malaise. Patient denies any nausea, vomiting or any indication of infection. Patient was found to have slight worsening of his renal function. The patient was admitted for further evaluation and treatment. Hospital Course: Patient presented with acute on chronic renal disease stage 5 with history of polycystic disease. Renal function was slightly compromise. Patient was given IV fluids Overnite. Nephrology was consulted. His condition has overall improved. No further intervention required as recommended by nephrology. Patient will be discharged home. Electrolytes have been replaced. Patient will continue with his current medication. Recommend no further use of nonsteroidal anti-inflammatories may need to be renally dose. Patient will follow up with nephrology within 1 week with repeat lab at that time. Nephrology will monitor the patient closely as the patient may require hemodialysis in the future. Patient with hypertension. This appears stable at this time. At discharge he will continue with his current medications of carvedilol, Cardura, Norvasc. Patient with COPD. At discharge he will continue with his current medication of Breo. Patient with hyperlipidemia. At discharge she will continue with Lipitor 20 mg daily. Patient with low magnesium level. Patient will continue with supplementation at discharge. Vital Signs/Physical Exam: Temp Pulse Resp BP Pulse Ox 97.4 F 80 16 158/80 H 96 11/15/19 08:00 11/15/19 08:45 11/15/19 08:00 11/15/19 08:45 11/15/19 08:00 General: Alert, In no apparent distress, Cooperative HEENT: Atraumatic Neck: Supple Respiratory: Clear to auscultation bilaterally, Normal air movement Cardiovascular: Normal pulses, Regular rate/rhythm Gastrointestinal: Normal bowel sounds Integumentary: No erythema, No warmth, No cyanosis Neurological: Normal speech, Normal strength at 5/5 x4 extr, Normal tone, Normal affect Laboratory Data at Discharge: WBC 7.3 K/uL (4.3-10.9) D 11/15/19 03:54 Hgb 10.0 g/dL (13.6-17.9) L 11/15/19 03:54 Hct 30.2 % (39.6-49.0) L 11/15/19 03:54 Plt Count 161 K/uL (152-406) 11/15/19 03:54 PT 13.2 SECONDS (9.5-12.5) H 11/14/19 18:10 INR 1.12 11/14/19 18:10 Sodium 145 mmol/L (136-145) 11/15/19 03:54 Potassium 4.4 mmol/L (3.5-5.1) 11/15/19 03:54 BUN 41 mg/dL (7-18) H 11/15/19 03:54 Creatinine 5.01 mg/dL (0.55-1.3) H* 11/15/19 03:54 Glucose 84 mg/dL (74-106) 11/15/19 03:54 Uric Acid 3.5 mg/dL (3.5-7.2) 11/15/19 03:54 Magnesium Cancelled 11/15/19 05:32 Total Bilirubin 0.4 mg/dL (0.2-1.0) 11/14/19 18:10 AST 4 U/L (15-37) L 11/14/19 18:10 ALT 11 U/L (12-78) L 11/14/19 18:10 Alkaline Phosphatase 51 U/L (45-117) 11/14/19 18:10 Home Medications: Amlodipine [Norvasc*] 5 mg PO DAILY 11/15/19 Atorvastatin Calcium [Lipitor*] 20 mg PO BEDTIME 11/15/19 Calcitriol [Rocaltrol] 1 tab PO DAILY 11/15/19 Carvedilol [Coreg] 25 mg PO DAILY 11/15/19 Doxazosin [Cardura*] 1 tab PO DAILY 11/15/19 Fluticasone/Vilanterol [Breo Ellipta 100-25 Mcg INH] 1 puff IN DAILY 11/15/19 Magnesium Oxide [Mag 0X*] 400 mg PO DAILY 11/15/19 Tadalafil [Cialis] 1 tab PO BEDTIME 11/15/19 Patient Discharge Instructions: 1. Patient presented with acute on chronic renal disease stage 5 with history of polycystic disease. Renal function was slightly compromise. Patient was given IV fluids Overnite. Nephrology was consulted. His condition has overall improved. No further intervention required as recommended by nephrology. Patient will be discharged home. Electrolytes have been replaced. Patient will continue with his current medication. Recommend no further use of nonsteroidal anti-inflammatories may need to be renally dose. Patient will follow up with nephrology within 1 week with repeat lab at that time. Nephrology will monitor the patient closely as the patient may require hemodialysis in the future. 2. Patient with hypertension. This appears stable at this time. At discharge he will continue with his current medications of carvedilol, Cardura, Norvasc. 3. Patient with COPD. At discharge he will continue with his current medication of Breo. 4. Patient with hyperlipidemia. At discharge she will continue with Lipitor 20 mg daily. 5. Patient with low magnesium level. Patient will continue with supplementation at discharge. Diet: Renal Activity: Ad manjit Time spent managing pt's care (in minutes): 55
[2019-11-15 12:26] VITALS: BP 139/71; TEMP 97.6
[2019-11-15 12:47] VITALS: O2SAT 96
[2019-11-15] MEDS ORDERED: ATORVASTATIN 20 MG TAB PO SCH (21:00)
--- NOTE | 2019-11-15 23:51 | CON ---
Date of Consultation: 11/15/2019 Reason For Consultation: Elevated BUN and creatinine, electrolyte imbalance. History Of Present Illness: This is a pleasant 64-year-old gentleman, well known to me from the office with significant past medical history of polycystic kidney disease, hypertension, hyperlipidemia, AAA, the patient's baseline creatinine 4.5, GFR around 13. For the last couple of weeks, the patient is complaining some fatigue, losing energy. For that reason, reported to the emergency room. In the emergency room, primary workup did not show any worsening in the kidney function. BUN was in the 40. The patient was admitted for observation. Over the night, we started the patient on gentle hydration. Kidney function is back to around baseline. The patient felt significantly better with fatigue and has been subsided. The patient denied any shortness of breath or any chest pain. The patient denied taking any nonsteroidal. No IV contrast. No recent change in his med. The patient denied taking any diuresis. Past Medical History: 1. Diabetes. 2. Hyperlipidemia. 3. COPD. 4. AAA. 5. Chronic kidney disease, stage 5. 6. COPD. Social History: Denies smoking. Denies drinking. Denies drugs abuse. Family History: Positive for diabetes and Hypertension. Allergies: NO KNOWN DRUG ALLERGIES. Home Medications: Amlodipine, atorvastatin, calcitriol, carvedilol, Cardura, Cialis. Review of Systems: Head and Neck: No red eye. No ear pain. GI: No nausea, no vomiting. : No polyuria, no dysuria, no hematuria. Horologist Apprentice: Not applicable. Respiratory: No shortness of breath. Cardiovascular: No chest pain. Endocrine: No polydipsia. Skin: No rash. Neuro: Generalized fatigue. Musculoskeletal: Weakness. Physical Examination: Vital Signs: When I saw the patient, blood pressure 139/71, pulse of 56, afebrile. Orthostatic was negative. Chest: Clear to auscultation. Heart: S1, S2 regular. Abdomen: Soft, nontender. Extremities: No edema. Neurologic: Alert, oriented. No focality. Laboratory Data: WBC 7.3, H and H 10/30.2, platelets 161. Sodium 145, potassium 4.4, bicarb 27, BUN 41, creatinine 5, calcium 9, uric acid of 3.5, CK 40. TSH of 3.4. Vitamin D 25-OH 44. Assessment And Plan: 1. Acute kidney injury on advanced chronic kidney disease, secondary to prerenal, recovered, back to baseline. I am going to discontinue IV fluids. 2. Fatigue, secondary to dehydration, resolved. Discontinue IV fluids. 3. Hypertension, controlled, optimal. We will continue current medication. 4. Secondary hyperparathyroid. Continue calcitriol. The patient is cleared from the renal standpoint for discharge planning to follow up in the office in 1-2 weeks. I had a long discussion with the patient that there is no need for initiating any renal replacement therapy for the time being, the patient verbalized understanding. Time spent discussed with the patient, [id number] interview, coordinating care with other team including the nurse and Dr. Flores, hospitalist, 65 minutes. time spent to coordinate the care , discussing with other team meember the care , face to face with the patient and discussed the plan with patient , placing order 45 min ZI Voice ID: [id number] Report ID: [id number] [id number]
--- NOTE | 2019-11-16 05:54 | EKG ---
Test Date: 2019-11-14 Test Time: 18:09:51 Orchestra Director: JIM MEASUREMENT RESULTS: Intervals: Rate: 55 MN: 218 QRSD: 84 QT: 452 QTc: 432 [place]: P: 33 MN: 218 QRS: 45 T: 71 INTERPRETIVE STATEMENTS: Sinus bradycardia with 1st degree AV block with premature atrial complexes with aberrant conduction Septal infarct, age undetermined Abnormal ECG Compared to ECG 04/09/2018 21:41:46 Atrial premature complex(es) now present Aberrant conduction of supraventricular beat(s) now present Ventricular premature complex(es) no longer present Myocardial infarct finding still present Electronically Signed On 11-16-19 05:50:33 CDT by Yvon Baum
[2019-11-17 18:50] LABS: HBsAG Nonreactive (Nonreactive)
== END 2019-11-15 13:22 | disposition home or self-care (01) ==
LOC: ER 16:05 → ERHOLD 19:53 → 2ND 22:15
PROVIDERS: ADMIT Family Medicine; ATTEND Family Medicine
DX: I12.0 Hypertensive chronic kidney disease with stage 5 chronic kidney disease or end stage renal disease (principal); E11.22 Type 2 diabetes mellitus with diabetic chronic kidney disease; N18.5 Chronic kidney disease, stage 5; N17.9 Acute kidney failure, unspecified; Q61.3 Polycystic kidney, unspecified; E86.0 Dehydration; E87.8 Other disorders of electrolyte and fluid balance, not elsewhere classified; J44.9 Chronic obstructive pulmonary disease, unspecified; E83.42 Hypomagnesemia; E78.5 Hyperlipidemia, unspecified; R31.9 Hematuria, unspecified; N25.81 Secondary hyperparathyroidism of renal origin; R53.83 Other fatigue; I71.4 Abdominal aortic aneurysm, without rupture; K21.9 Gastro-esophageal reflux disease without esophagitis; Z20.828 Contact with and (suspected) exposure to other viral communicable diseases; Z87.891 Personal history of nicotine dependence; Z79.82 Long term (current) use of aspirin; Z83.3 Family history of diabetes mellitus; Z82.49 Family history of ischemic heart disease and other diseases of the circulatory system; Z84.1 Family history of disorders of kidney and ureter
CPT/HCPCS: 96365; 93005; 85025 ×2; 80048 ×2; 36415; 83735 ×2; 82550; 85610; 82947 ×3; 80076; 84550; 84443; 82553; 84439; 86704; 82306; 83880; 87340; 86706; 86803; 71045; 76770; 99285; U0003; J1644 ×2; J7030; G0378 ×3; 81003; 81015; J7606

== ENCOUNTER 2020-01-21 08:13 | Emergency (ER) | payer OTHER ==
--- OUTSIDE RECORDS SUMMARY | 2020-01-21 08:19 | XMS REPORT | Continuity of Care Document ---
:1955 Author Organization [facility] [employer] Care Team Providers Name Role Phone [facility] [employer] Unavailable Un available Problems Problem Status Onset Classification Date Comments Sourc e Date Reported Z01.818 - ENCOUNTER Active OPID FOR OTHER PREPROCEDU 2019 [place] LABH Active [address] F/U Active [address] LISTED UPDATE Active Aiden as [address] [address] FOLLOW UP Active [address] LABS Active [address] 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 H OPID GAMMOPATHY 2018 [place] CKD 9 CHRONIC KIDNEY Active [facility] DISEASE [address] [place] [address] ELEVATED [place]AMMA [place] GLOBULIN/ PRE -KIDNEY [address] [place] [address] KIDNEY/DO NOT USE FOR Active [facility] CHARGES F/C NOTES 2019 [facility] [address] [place]UATION [place] [address] [place] [address] Z87.891 - PERSONAL Active H OPID HISTORY OF NICOTINE D 2017 [place] Hypomagnesemia Brown brunner 2017 7 Weakness Norbert d 2016 7 Other disorders of M H [place] phosphorus metabolism 2017 7 WEAKNESS Active [facility] 2016 [place] Discharge Diagnosis: [facility] Sore throat 2015 6 Discharge Diagnosis: [facility] Foreign body (FB) in 2016 6 soft tissue (Throat) THROAT PAIN Active [facility] 2015 [place] Discharge Diagnosis: [facility] Weakness 2016 6 Discharge Diagnosis: [facility] Chronic back pain 2016 6 Discharge Diagnosis: [facility] History of AAA 2016 6 (abdominal aortic aneurysm) repair Discharge Diagnosis: [facility] Articular gout 2016 6 CHEST PAIN Active [facility] 2016 Zen 491.20 - OBST CHR Active 09/10/ LAURA CARNEY [address] [address] Kidney disease Active Problem [place] (disorder[place] 0 [facility], LAURA Zaldivar, [facility] Final: Weakness P earland 6 Final: Abdominal [facility] aortic aneurysm, 6 without rupture Final: Idiopathic [facility] gout, unspecified site 6 Final: Hypertensive [facility] chronic kidney disease 6 with stage 1 through stage 4 chronic kidney disease, or unspecified chronic kidney disease Final: Chronic kidney [facility] disease, unspecified 6 Abdominal aortic Resolved Problem Medical aneurysm (disorder) 0 Group,[facility] [place], Morenita Tolu Zaldivar, LAURA Xavier,[facility] Antibiotic prophylaxis Active Problem Medical indicated 0 Group (context-dependent category) Arthritis (disorder) Active Problem Medical 0 Group,[facility] [place], LAURA Zaldivar, [facility] Autosomal dominant Active Problem [facility] Medical polycystic kidney 0 Gr oup disease Benign prostatic Active Problem Medical hyperplasia (disorder) 0 Group Bladder dysfunction Active Problem Medical (finding) 0 Group Blood coagulation Active Problem Medical disorder (disorder) 0 Group,[facility] [place], LAURA Zaldivar, [facility] Chronic kidney disease Active Problem Medical (disorder) 0 Group Chronic obstructive Active Problem Data Medical lung disease 0 migrated Group,M H (disorder) from [facility] on 07/29/14. Center, Diana Funez, LAURA Zaldivar, LAURA Xavier,[facility] Diabetic neuropathy Resolved Problem Medical (disorder) 0 Group,[facility] [place] Essential hypertension Active Problem Data Medical (disorder) 0 migrated Group, from [facility] on 07/29/14. [place],[facility] Morenita,[facility] LAURA Zaldivar, LAURA Xavier,[facility] Gastroesophageal Active Problem Data Medical reflux disease 0 migrated Group , (disorder) from [facility] on 07/29/14. [place],[facility] Morenita,[facility] LAURA Zaldivar, LAURA Xavier,[facility] Gout (disorder) Active Problem Data [facility] edical 0 migrated Group, from [facility] on 07/29/14. [place],[facility] Morenita,[facility] LAURA Zaldivar, LAURA Xavier,[facility] Hypercholesterolemia Active Problem Data Medical (disorder) 0 migrated Group, from [facility] on 07/29/14. [place],[facility] Morenita,[facility] LAURA Zaldivar, LAURA Xavier,[facility] Hyperlipidemia Active Problem Me dical (disorder) 0 Group,[facility] [place],[facility] LAURA Zaldivar, LAURA Xavier,[facility] Hypertensive disorder, Active Problem Medical systemic arterial 0 Gr oup, (disorder) [facility] LAURA basilio, LAURA Zaldivar, LAURA Xavier,[facility] Hypogonadism Active Problem Data Medi iris (disorder) 0 migrated Group, from [facility] on 07/29/14. [place],[facility] Morenita,[facility] LAURA Zaldivar, LAURA Xavier,[facility] Inflammatory disease Active Problem Medical of liver (disorder) 0 Group,[facility] [place], LAURA Zaldivar, [facility] Low compliance bladder Active Problem Medical (disorder) 0 Group Microscopic hematuria Active Problem Medical (disorder) 0 Group Morbid obesity Active Problem Me dical (disorder) 0 Group,[facility] [place], LAURA ZaldivarMH [facility] Patient encounter Active Problem Medical status (finding) 0 [place] Proteinuria (finding) Active Problem Medical 0 Group CHRONIC KIDNEY [place] DISEASE, UNSPECIFIED Medical Center ENCOUNTER FOR OTHER Active [facility] PREPROCEDURAL EXAMIN Medical Center ABDOMINAL DISTENSION Active [facility] (GASEOUS) Medical Center ENCOUNTER FOR Active Aiden as PREPROCEDURAL Medica l LABORATORY E Center Medications Medication Details Route Status Patient Ordering Order Source Instructions Provider Date Ceftriaxone 1 gm, Route: Inactive IM, Drug 2019 Medical form: Group PDR/INJ, ONCE, Dosing Weight 113.636, kg, Priority: STAT, Start date: 04/27/19 10:16:00 INTERNAL MEDICINE HOSPITALIST, Stop date: 04/27/19 10:16:00 INTERNAL MEDICINE HOSPITALIST amLODIPine 5 mg oral 5 mg = 1 tab, Active 04/01 [facility] tablet PO, Daily, # 2020 Medical 90 tab, 3 Center Refill(s), Pharmacy: [facility]/pharmacy #[id number] atorvastatin 20 mg 20 mg = 1 Active [facility] oral tablet tab, PO, 2020 Medical Bedtime, # 90 Center tab, 2 Refill(s), Pharmacy: [facility]/pharmacy #[id number] atorvastatin 20 mg 20 mg = 1 Inactive [facility] oral tablet tab, PO, 2020 Medical [...] PO, BID, 2019 Medica l 1 Refill(s) [place] carvedilol 6.25 mg 6.25 mg = 1 Active 07/23/ M [place] oral tablet tab, PO, 2019 Medical Q12H, # 60 Center tab, 5 Refill(s), Pharmacy: [facility]/pharmacy #[id number] atorvastatin 10 mg 10 mg = 1 Active [place] oral tablet tab, PO, 2019 Medical Bedtime, # 30 Center tab, 5 Refill(s), Pharmacy: [facility]/pharmacy #[id number] carvedilol 3.125 mg 3.125 mg = 1 No Longer 06/23 [place] oral tablet tab, PO, BID, Active 2019 Medica l 0 Refill(s) [place] calcitriol 0.25 mcg 0.25 Active [place] [...] mg oral tablet tab, PO, BID 2019 [facility] Glipizide 10 MG Oral 10 mg = 1 Active H [place] Tablet tab, PO, 2018 Medical Daily, 0 Center Refill(s) pravastatin 80 mg 80 mg = 1 [place] oral tablet tab, PO, 2018 Medical Daily, 0 Center Refill(s) Amlodipine 10 mg, PO, No Longer [place] Daily, 0 Active 2019 Medical Refill(s) Center Esomeprazole 40 MG 40 mg = 1 Active [facility] Enteric Coated cap, PO, 2018 Medical Capsule Daily, 0 Center Refill(s) metoprolol 100 mg 100 mg = 1 No Longer [place] oral tablet, tab, PO, BID, Active 2019 Medic al extended release 0 Refill(s) [place] allopurinol 300 mg 300 mg = 1 Active [facility] oral tablet tab, PO, 2018 Medical Daily, 0 Center Refill(s) Doxepin 6 mg, PO, Active [facility] Bedtime, 0 2019 Medical Refill(s) Center carvedilol 3.125 mg 3.125 mg = 1 No Longer 04/05 [facility] oral tablet tab, PO, BID, Active 2019 Medica l 0 Refill(s) Center losartan 25 mg oral 25 mg = 1 Active [facility] tablet tab, PO, 2019 Medical Daily, 0 Center Refill(s) Ranitidine 150 MG 150 mg = 1 Active [facility] Oral Tablet tab, PO, 2018 Medical Bedtime, 0 Center Refill(s) Adult Aspirin 81 mg 81 mg = 1 Active [facility] oral tablet, tab, CHEW, 2018 Medical [...] WASTE: Inactive F/P - Sink; E 2017 [place] - [facility] GI cocktail Notes: G.I. Inactive Cocktail = 2016 [place] antacid with simethicone 22.5 mL - lidocaine viscous 7.5 mL Sodium Chloride 0.9% 1,000 mL, Inactive IV (Sodium Chloride 2,000 ml/hr, 2016 [place] 0.9% (Bolus) IV) Infuse Over: 30 minutes, Route: IV, 1,000, Drug form: INJ, ONCE, Priority: STAT, Dosing Weight 118.182 kg, Start date: 11/03/16 10:34:00 CDT, Duration: 1 doses or times, Stop date: 11/03/16 10:34:00 CDT Saline Flush 0.9% Notes: (Same Inactive as: BD 2017 [place] Posiflush) clindamycin 300 mg 300 mg = 1 Active oral capsule cap, PO, TID, 2016 Yamini and X 10 day, # 30 cap, 0 Refill(s) GI cocktail Notes: G.I. Inactive Cocktail = 2015 [place] antacid with simethicone 22.5 mL - lidocaine viscous 7.5 mL {21 See Active (Methylprednisolone Instructions, 2016 [place] 4 MG Oral Tablet PO, Take by [...] Zofran Notes: (Same Inactive as: Zofran) 2015 [place] MEDICATION WASTE Product Size: 4 mg Product Wasted: ___ mg Morphine Notes: (Same Inactive as:MORPhine 2016 [place] Sulfate) Saline Flush 0.9% Notes: (Same Inactive as: BD 2016 [place] Posiflush) Allergies, Adverse Reactions, Alerts Substance Category Reaction Severity Reaction Status Date Comments S ource type Reported No Known Assertion Drug Medication allergy Medic al Allergies Group Immunizations Immunization Date Given Site Status Last Comments Source Updated varicella virus 04/01/2019 Right lwr completed [facility] vaccine abdom quad Group,[facility] [place] measles/mumps/rub 04/01/2019 Left upper completed [facility] tez virus arm Group, vaccine [facility] Results Order Name Results Value Reference Date Interpretation Comments Esperanza rce Range URINE AND POC UA Color Yellow Yellow 04/27 STOOL *NA Medical (04/27/19 8:05 AM) Group URINE AND POC UA Clear Clear 04/27 STOOL Turbidity *NA [facility] (04/27/19 8:05 AM) Group URINE AND POC [...] UA Bili Negative Negative 04/27 STOOL *NA [facility] (04/27/19 8:05 AM) Group URINE AND POC UA Bld Trace Negative 04/27 STOOL *ABN [facility] (04/27/19 8:05 AM) Group URINE AND POC UA Uro 0.2 0.1 - 1.0 04/27 STOOL Medical Group URINE AND POC UA Nit Negative Negative 04/27 STOOL *NA [facility] (04/27/19 8:05 AM) Group URINE AND POC UA Negative Negative 04/27 STOOL LeukEst *NA [facility] (04/27/19 8:05 AM) Group ANEMIA Ferritin Lvl 237 22 - 275 03/[address] ANEMIA Iron 46 45 - 160 03/[address] ANEMIA TIBC 300 228 - 428 03/[address] ANEMIA UIBC 254 110 - 370 03/[address] ANEMIA % Satur Fe 15 12 - 57 03/[address] CHEM PANEL Glucose Lvl 74 70 - 99 03/[address] CHEM PANEL BUN 43 7 - 22 03/[address] CHEM PANEL Creatinine 4.40 0.50 - 03/16 [facility] Lvl 1.40 [facility] CHEM PANEL Sodium Lvl 143 135 - 145 03/[address] CHEM PANEL Potassium 3.9 3.5 - 5.1 03/16 [facility] [address] CHEM PANEL Chloride Lvl 109 95 - 109 03/[address] CHEM PANEL CO2 26 24 - 32 03/[address] CHEM PANEL Calcium Lvl 8.5 8.5 - 10.5 03/[address] CHEM PANEL Total 7.5 6.4 - 8.4 03/16 [facility] Protein [address] CHEM PANEL Albumin Lvl 3.4 3.5 - 5.0 03/[address] CHEM PANEL ALT 16 0 - 65 03/[address] CHEM PANEL AST 11 0 - 37 03/[address] CHEM PANEL Alk Phos 68 39 - 136 03/[address] CHEM PANEL Bili Total 0.3 0.2 - 1.3 03/[address] CHEM PANEL AGAP 11.9 10.0 - 03/16 [place] 20.0 [facility] CHEM PANEL B/C Ratio 10 6 - 25 03/[address] CHEM PANEL Globulin 4.1 2.7 - 4.2 03/[address] CHEM PANEL A/G Ratio 0.8 0.7 - 1.6 03/[address] CHEM PANEL eGFR 13 03/16 [facility] Comment: The Medical eGFR is Center calculated [...] PANEL Magnesium 1.2 1.8 - 2.4 03/16 [facility] CHEM PANEL Phosphorus 3.9 2.5 - 4.5 03/16 [facility]2019 [facility] CHEM PANEL Uric Acid 7.1 3.8 - 8.0 03/16 [facility]2019 [facility] CHEM PANEL Vitamin D, 42.0 30.0 - 03/16 [facility] 25-OH, Total 100.0 [facility] CHEM PANEL LDH 164 98 - 192 03/[address] CHEM PANEL Creatinine 4.39 0.50 - 03/16 [facility] 1.40 [facility] CHEM PANEL eGFR 13 03/16 Result Comment: [...] PT 12.8 12.0 - 03/16 [place] 14.7 [facility] HEMATOLOGY INR 0.96 0.85 - 03/16 [place] 1.17 [facility] HEMATOLOGY PTT 33.5 22.9 - 03/16 [place] 35.8 [facility] HEMATOLOGY WBC 8.5 3.7 - 10.4 03/16 [facility] HEMATOLOGY RBC 4.31 4.70 - 03/16 [place] 6.10 [facility] HEMATOLOGY Hgb 12.6 14.0 - 03/16 [place] 18.0 [facility] HEMATOLOGY Hct 39.5 42.0 - 03/16 [place] 54.0 [facility] HEMATOLOGY MCV 91.6 80.0 - 03/16 [place] 94.0 [facility] HEMATOLOGY MCH 29.3 27.0 - 03/16 [place] 31.0 [facility] HEMATOLOGY MCHC 32.0 32.0 - 03/16 [place] 36.0 [facility] HEMATOLOGY RDW 15.5 11.5 - 03/16 [place] 14.5 /2020 [facility] HEMATOLOGY Platelet 215 133 - 450 03/16 [facility] HEMATOLOGY MPV 9.0 7.4 - 10.4 03/16 [facility]2019 [facility] HEMATOLOGY AT III Func 118 77 - 140 03/16 [facility]2019 [facility] HEMATOLOGY F5 Leiden Negative 03/16 [facility] PCR (03/16/19 7:10 AM) [facility] HEMATOLOGY F5 Leiden See note 03/16 Result [facility] Intr Comment: Medical FACTOR V Center LEIDEN: Negative
INTERPRE TATION:
Molecula r analysis for the Factor V Leiden [id number] mutation is negative. Other causes of activated [...] genotyping of the human Factor V Leiden S0038U mutation. The assay will amplify a 233 base pair fragment of Factor V gene (FV)containin g the Factor V Leiden [id number] sequence. The assay is designed to detect the R1662J mutation only. Other causes of activated protein C resistance and hereditary forms of venous thrombosis are not ruled out. The presence of PCR inhibitors may cause invalid results.
The performance characteristi cs of this assay were validated by the [facility] Laboratory within [facility]. The Molecular Diagnostic Laboratory is authorized under the Clinical Laboratory Improvement Amendments of 1988 (CLIA-88) to perform high complexity testing. HEMATOLOGY dRVV Ratio 1.26 <=1.20 03/16 [facility] [address] [address] HEMATOLOGY Plt Neut Negative 03/16 [facility] Test [facility] HEMATOLOGY Hex Phos N Negative Negative 03/16 [facility] (03/16/19 7:10 AM) [facility] HEMATOLOGY Lup Interp Negative 03/16 [facility] for lupus [facility] ant (prolonged dRVVT, negative hexagonal phospholip id neutraliza tion, and negative Platelet Neutraliza tion procedure) . Thrombin Time is normal (15.5 sec) which rules out heparin as interferen ce substance. CPT: 89168 HEMATOLOGY F2 Mutation Negative 03/16 [facility] PCR (03/16/19 7:10 AM) [facility] HEMATOLOGY F2 Mut See note 03/16 Result [facility] Inter Comment: Medical FACTOR II PT: Center Negative
INTERPRE TATION:
Molecula r analysis for the Factor II (Prothrombin) 09120A>A mutation is negative. Other causes of elevated [...] genotyping of the human Factor II (Prothrombin) [id number] mutation. The assay will amplify a 173 base pair fragment of Factor II
Gene (FII) containing the Factor II [id number] sequence. The assay is designed to detect the [id number] mutation only. Other causes of elevated prothrombin levels and hereditary forms of venous thromboses are not ruled out. The presence of PCR inhibitors may cause invalid results.
The performance characteristi cs of this assay were validated by the [facility] within [facility]. The [facility] Diagnostic Laboratory is authorized under the Clinical Laboratory Improvement Amendments of 1988 (CLIA-88) to perform high complexity testing. HEMATOLOGY Protein C 118 72 - 147 03/16 [facility] [address] [place] [address] HEMATOLOGY Protein S 113 54 - 137 03/[address] HEMATOLOGY Segs 58.7 45.0 - 03/16 [facility] 75.0 [facility] HEMATOLOGY Lymphocytes 30.5 20.0 - 03/16 [facility] 40.0 [facility] HEMATOLOGY Monocytes 8.0 2.0 - 12.0 03/[address] HEMATOLOGY Eosinophils 2.2 0.0 - 4.0 03/16 [facility]2019 [facility] HEMATOLOGY Basophils 0.6 0.0 - 1.0 03/[address] HEMATOLOGY Neutrophils 5.0 1.5 - 8.1 03/16 [facility] s [facility] HEMATOLOGY Lymphocytes 2.6 1.0 - 5.5 03[place] /2019 [facility] Center HEMATOLOGY Monocytes # 0.7 0.0 - 0.8 03/[place]2020 [facility] Center HEMATOLOGY Eosinophils 0.2 0.0 - 0.5 03/[place] # /2019 [facility] Center IMMUNOLOGY Cystatin C 3.70 0.62 - 03/16 Result [place] 1.16 Comment: Medical Performed At: [facility]
[address] [place] [address] [id number]<br/ >Brian Morales MD Ph:[phone] IMMUNOLOGY Cardiolipin <0.5 <=19.9 APL 03/16 [place] IgA /2019 [facility] IMMUNOLOGY Cardiolipin <1.6 <=19.9 GPL 03/16 [place] as IgG /2019 [facility] IMMUNOLOGY Cardiolipin 0.8 <=19.9 MPL 03/16 [place] IgM /2019 [facility] IMMUNOLOGY Homocyst Tot 16.5 3.7 - 13.9 03/16 [place] [facility] IMMUNOLOGY Albumin % 51.0 55.8 - 03/16 [place] 66.1 [facility] IMMUNOLOGY Alpha 1 % 8.6 2.8 - 4.9 03/16 [place] [facility] IMMUNOLOGY Alpha 2 % 14.6 7.0 - 11.9 03/16 [place] [facility] IMMUNOLOGY Beta % 12.4 7.8 - 13.7 03/16 [place] [facility] IMMUNOLOGY Gamma % 13.4 11.1 - 03/16 [place] 18.7 [facility] IMMUNOLOGY Albumin 3.83 3.57 - 03/16 [place] (SPE) 5.55 [facility] IMMUNOLOGY Alpha 1 Glob 0.65 0.18 - 03/16 [place] 0.41 [facility] IMMUNOLOGY Alpha 2 Glob 1.10 0.45 - 03/16 [place] 1.00 [facility] IMMUNOLOGY Beta Glob 0.93 0.50 - 03/16 [place] 1.15 [facility] IMMUNOLOGY Gamma Glob 1.01 0.71 - 03/16 [place] 1.57 [facility] IMMUNOLOGY Tot Prot 7.5 6.4 - 8.4 03/16 [place] (SPE) /2019 [facility] IMMUNOLOGY SPE Interp Serum 03/16 [facility] protein /2019 [facility] electropho Center resis demonstrat es a small [...] concur with the resident's interpreta tion. CPT 91536-MF IMMUNOLOGY [place] Free 110.41 3.30 - 03/16 [facility] Light Chains 19.40 [facility] IMMUNOLOGY Lambda Free 40.85 5.70 - 03/16 [facility] Light Chains 26.30 [facility] IMMUNOLOGY [place]/Lambda 2.70 0.26 - 03/16 [facility] Free Light 1.65 [facility] Chains Ratio [place] IMMUNOLOGY CMV IgG Reactive Non 03/16 [facility] *ABN* Reactive [facility] (03/16/19 7:10 AM) [place] IMMUNOLOGY EBV VCA IgG >8.0 <=0.8 AI 03/16 [facility] /2019 [facility] IMMUNOLOGY HIV Ag/Ab Negative Negative 03/16 [facility] 4th Gen *NA* [facility] (03/16/19 7:10 AM) [place] IMMUNOLOGY Hep A Tot Positive Negative 03/16 [facility] *NA* /2019 [facility] (03/16/19 7:10 AM) [place] IMMUNOLOGY Hep Bs Ab <3.1 <=7.4 03/16 [facility] mIU/mL [facility] IMMUNOLOGY Hep B Core Negative Negative 03/16 [facility] Ab *NA* [facility] (03/16/19 7:10 AM) [place] IMMUNOLOGY Hep Bs Ag Negative Negative 03/16 [place] *NA* /2019 [facility] (03/16/19 7:10 AM) [place] IMMUNOLOGY Hep C Ab Negative Negative 03/16 [facility] *NA* [facility] (03/16/19 7:10 AM) [place] IMMUNOLOGY HSV 2 IgG <0.2 <=0.8 AI 03/16 [facility] /2019 [facility] IMMUNOLOGY HSV 1 IgG >8.0 <=0.8 AI 03/[address] IMMUNOLOGY T-Spot.TB Negative Negative 03/16 [facility] (03/16/19 7:10 AM) /2019 Medica l [place] IMMUNOLOGY Treponemal Non-Reactive Non 03/16 [place] *NA* /2019 Medical (03/16/19 7:10 AM) Center IMMUNOLOGY Varicella <0.2 <=0.8 AI 03/16 [facility] IgG [facility] IMMUNOLOGY Mumps IgG 5.1 <=0.8 AI 03/[address] IMMUNOLOGY Rubella IgG <0.2 >=10.0 03/16 [facility] IU/mL [facility] IMMUNOLOGY Rubeola IgG 2.0 <=0.8 AI 03/[address] IMMUNOLOGY KAREN Ser A distinct 03/16 [facility] Pattern monoclonal Medical band is Center present in the IgM izabella with a correspond ing faint band in the kappa light chain izabella. The polyclonal gamma globulin background is preserved in all lanes. IMMUNOLOGY KAREN Ser The 03/16 [facility] Interp immunofixa /2019 [facility] electropho resis results (see pattern descriptio n) are consistent with monoclonal gammopathy of IgM-kappa isotype. Preservati on of diffusely staining immunoreac tivity indicates that the production of polyclonal immunoglob ulins is not suppressed . Relevant medical informatio n in the EMR was reviewed. I have personally reviewed the test results and concur with the resident's interpreta tion. CPT 29192-JV LIPIDS Trig 138 <=149 03/16 [facility] mg/dL [facility] LIPIDS Chol 183 <=199 03/16 [facility] mg/dL [address] [place] [address] LIPIDS HDL 40 >=61 mg/dL 03/[address] LIPIDS CHD Risk 4.58 4.00 - 03/16 [facility] 7.30 [facility] LIPIDS LDL 115 <=99 mg/dL 03/16 [facility] (Calculated) [facility] LIPIDS VLDL 28 03/[address] PARASITOLOG Strongyloide Negative Negative 03/16 [place] - s Antibodies Comment: Medical SEROLOGY Performed At: [facility] [place]
[address], [place] [id number]<br/ >Brian Morales MD Ph:[phone] PARATHYROID PTH Intact 579.6 18.4 - 03/16 [facility] PROFILE 80.1 [facility] SPECIAL Nicotine Lvl None 03/16 Result [facility] CHEMISTRY Detected Comment: This Medical test was Center developed and its performance characteristi cs
determ ined by [facility]. It has not been cleared or
approv ed by the Food and Drug Administratio n.
Nicoti ne levels greater than 2.0 are consistent with the
use of tobacco or tobacco cessation products. SPECIAL Cotinine Lvl None 03/16 Result [facility] CHEMISTRY Comment: This Medical test was Center developed and its performance characteristi cs
determ ined by [facility]. It has not been cleared or
approv ed by the Food and Drug Administratio n.
Cotini ne levels greater than 20.0 are consistent with the
use of tobacco or tobacco cessation products.<br/ >Performed At: [facility]
[address], [place] [id number]<br/ >Brian Morales MD Ph:[phone] SPECIAL Hgb A1C 6.1 <=5.6 % 03/16 [facility] CHEMISTRY /[address] [address] SPECIAL PSA 1.34 0.00 - 03/16 [facility] CHEMISTRY 4.00 [facility] URINE AND UA WBC 1 0 - 5 03/16 [facility] STOOL [address] URINE AND UA RBC 1 0 - 2 03/16 [facility] STOOL [address] URINE AND UA Color Yellow Yellow 03/16 [facility] *NA* [facility] (03/16/19 7:10 AM) [place] URINE AND UA Turbidity Clear Clear 03/16 [facility] (03/16/19 7:10 AM) Medica l [place] URINE AND UA Spec Grav 1.010 <=1.030 03/16 [facility] STOOL [address] URINE AND UA pH 6.0 5.0 - 8.0 03/16 [facility] STOOL [address] URINE AND UA Protein 100 mg/dL Negative 03/16 [facility] STOOL mg/dL [address] [place] [address] URINE AND UA Glucose 100 mg/dL Negative 03/16 [facility] mg/dL [address] [place] [address] URINE AND UA Ketones Negative Negative 03/16 [facility] *NA* [facility] (03/16/19 7:10 AM) [place] URINE AND UA Bili Negative Negative 03/16 [facility] *NA* [facility] (03/16/19 7:10 AM) [place] URINE AND UA Blood Trace Negative 03/16 [facility] *ABN* /2019 Medical (03/16/19 7:10 AM) [place] URINE AND UA 0.2 0.1 - 1.0 03/16 [facility] Urobilinogen /[address] [place] [address] URINE AND UA Nitrite Negative Negative 03/16 [facility] (03/16/19 7:10 AM) [facility] URINE AND UA Leuk Est Negative Negative 03/16 [facility] (03/16/19 7:10 AM) [facility] URINE AND UA Sq Epi None Seen Few 03/16 [facility] (03/16/19 7:10 AM) /2019 [facility] URINE CHEM U Creatinine 74.20 03/[address] URINE CHEM U Alb 892.0 03/[address] URINE CHEM U Alb/Crea 1202.2 <=30.0 03/16 [facility] mg/g [address] [place] [address] URINE CHEM U Creatinine 74.20 03/[address] URINE CHEM U Protein 149.5 03/[address] URINE CHEM U Prot/Creat 2.01 03/[address] URINE CHEM U Creatinine 74.20 03/[address] URINE CHEM U Alb 892.0 03/[address] URINE CHEM U Alb/Crea 1202.2 <=30.0 03/16 [facility] mg/g /[address] [place] [address] VIRAL - T cruzi Non Non 03/16 Result [facility] SEROLOGY ([place]) Ab Reactive Reactive Comment: Test Med ical performed Center with Hall Prism [place] assay.

Performe d At: [facility]
[address] [place] [address] Room [address] [place], [place] [id number]<br/ >Nick Burger PhD Ph:[phone] VIRAL - W Nile Ab Negative Negative 03/16 Result [facility] SEROLOGY IgG Comment: No Medical detectable [place] West Nile Virus IgG Antibody. If a recent
in fection is suspected, another specimen should be
submit nicko for testing within 7-14 days. VIRAL - W Nile Ab Negative Negative 03/16 Result [facility] SEROLOGY IgM Comment: No Medical detectable Center West Nile Virus IgM Antibody. If a recent
in fection is suspected, another specimen should be
submit nicko for testing within 7-14 days.
Per formed At: [facility]
[address], [place] [id number]<br/ >Brian Morales MD Ph:[phone] IMMUNOLOGY 24Hr UPE 1444 06/29 [facility] IMMUNOLOGY 24Hr UPE Int Urine 06/29 [facility] protein [facility] electropho Center resis revealed presence of all [...] concur with the resident's interpreta tion. CPT: 66300-GF IMMUNOLOGY 24 UPE Tot 2725 06/29 [facility] Vol [facility] IMMUNOLOGY 24 UPE Tot 53 06/29 [facility] Prot [facility] CHEM PANEL LDH 150 98 - 192 06/23 [facility] CHEM PANEL F-2-Yymtepcm 9.6 1.0 - 2.3 06/23 [place] [facility] HEMATOLOGY MCHC 32.9 32.0 - 06/23 [place] 36.0 [facility] HEMATOLOGY Platelet 250 133 - 450 06/23 [facility] HEMATOLOGY RDW 16.3 11.5 - 06/23 [place] 14.5 [facility] HEMATOLOGY MPV 9.1 7.4 - 10.4 06/23 [facility] HEMATOLOGY Hgb 13.2 14.0 - 06/23 [place] 18.0 [facility] HEMATOLOGY Hct 40.2 42.0 - 06/23 54.0 [facility] HEMATOLOGY MCV 87.8 80.0 - 06/23 [place] 94.0 [facility] HEMATOLOGY MCH 28.9 27.0 - 06/23 [place] 31.0 [facility] HEMATOLOGY WBC 9.9 3.7 - 10.4 06/23 [facility] HEMATOLOGY RBC 4.58 4.70 - 06/23 [place] 6.10 [facility] HEMATOLOGY Eosinophils 0.2 0.0 - 0.5 06/23 [place] # /2018 [facility] HEMATOLOGY Basophils # 0.1 0.0 - 0.2 06/23 [place] [facility] HEMATOLOGY Basophils 0.7 0.0 - 1.0 06/23 [facility] HEMATOLOGY Neutrophils 6.6 1.5 - 8.1 06/23 [place] # /2018 [facility] HEMATOLOGY Lymphocytes 2.4 1.0 - 5.5 06/[place] # /2018 [facility] HEMATOLOGY Monocytes # 0.6 0.0 - 0.8 06/23 [facility] HEMATOLOGY Segs 66.7 45.0 - 06/23 [place] 75.0 [facility] HEMATOLOGY Monocytes 6.3 2.0 - 12.0 06/23 [facility] HEMATOLOGY Lymphocytes 24.3 20.0 - 06/23 40.0 [facility] HEMATOLOGY Eosinophils 2.0 0.0 - 4.0 06/23 a s [facility] IMMUNOLOGY [place]/Lambda 2.17 0.26 - 06/23 [facility] Free Light 1.65 [facility] Chains [facility] IMMUNOLOGY [place] Free 92.69 3.30 - 06/23 [facility] Light Chains 19.40 [facility] IMMUNOLOGY Lambda Free 42.69 5.70 - 06/23 [facility] Light Chains 26.30 [facility] IMMUNOLOGY U KAREN Interp Urine 06/23 [facility] immunofixa [facility] tion Center electropho resis revealed spillage of polyclonal immunoglob ulins mainly of IgG and IgA isotypes. There is no spillage of monoclonal immunoglob ulins or free monoclonal light chains. Relevant medical informatio n in the EMR was reviewed. I have personally reviewed the test results and concur with the resident's interpreta tion. CPT 27635-ZD IMMUNOLOGY U KAREN Diffusely 06/23 [facility] Pattern staining Medical immunoreac Center tivity is present mainly in IgG, IgA, kappa and lambda lanes. No monoclonal bands are seen. REFERENCE Test Name HLA TYPING 04/06 [facility] LAB RESULTS RESULTS /2018 [facility] BLOOD BANK ABO/RH O POS 04/06 [place] RESULTS Confirm [facility] ANEMIA Ferritin Lvl 213 22 - 275 04/06 [place] STUDY /2018 [facility] ANEMIA UIBC 261 110 - 370 04/06 [facility] ANEMIA % Satur Fe 15 12 - 57 04/06 [facility]2018 [facility] ANEMIA Iron 46 45 - 160 04/06 [facility]2018 [facility] ANEMIA TIBC 307 228 - 428 04/06 [facility]2018 [facility] BLOOD BANK OP ABORh Int O POS 04/06 [facility] RESULTS [facility] CHEM PANEL Vitamin D, 36.8 30.0 - 04/06 [facility] 25-OH, Total 100.0 [facility] CHEM PANEL Uric Acid 7.3 3.8 - 8.0 04/06 [facility] CHEM PANEL Phosphorus 3.4 2.5 - 4.5 04/06 [facility]2018 [facility] CHEM PANEL Magnesium 2.0 1.8 - 2.4 04/06 [facility] Lvl [facility] CHEM PANEL C-Peptide 8.17 0.48 - 04/06 [facility] 5.05 [facility] CHEM PANEL A/G Ratio 0.9 0.7 - 1.6 04/06 [facility]2018 [facility] CHEM PANEL B/C Ratio 9 6 - 25 04/06 [facility]2018 [facility] CHEM PANEL AGAP 12.4 10.0 - 02 [facility] 20.0 [facility] CHEM PANEL Globulin 4.2 2.7 - 4.2 04/06 [facility]2018 [facility] CHEM PANEL eGFR 14 04/06 [facility] Comment: The Medical eGFR is Center calculated [...] PANEL ALT 12 0 - 65 02 [facility] CHEM PANEL Alk Phos 70 39 - 136 04/06 [facility] CHEM PANEL AST 8 0 - 37 04/06 [facility] CHEM PANEL Albumin Lvl 3.7 3.5 - 5.0 04/06 [facility] CHEM PANEL Bili Total 0.3 0.2 - 1.3 04/06 [facility] CHEM PANEL Glucose Lvl 83 70 - 99 04/06 [facility] CHEM PANEL Sodium Lvl 137 135 - 145 04/06 [facility] CHEM PANEL BUN 35 7 - 22 04/06 [facility] CHEM PANEL Creatinine 4.10 0.50 - 04/06 [facility] Lvl 1.40 /2018 [facility] CHEM PANEL CO2 25 24 - 32 04/06 [facility] CHEM PANEL Calcium Lvl 9.7 8.5 - 10.5 04/06 [facility] CHEM PANEL Potassium 4.4 3.5 - 5.1 04/06 [facility] CHEM PANEL Chloride Lvl 104 95 - 109 04/06 [facility] CHEM PANEL Total 7.9 6.4 - 8.4 04/06 [facility] DRUG SCREEN Opiate Qnt Negative Negative 04/06 [...] SCREEN Opiate Scr Positive Negative 04/06 Result [facility] Comment: Medical ScrCutoff:20 Center ng/mL DRUG SCREEN 6-Acetylmor Negative Negative 04/06 Result [facility] Comment: Medical ScrCutoff:300 Center ng/mL DRUG SCREEN Benzodiaz Negative Negative 04/06 Result [facility] Comment: Medical ScrCutoff:20 Center ng/mL HEMATOLOGY Basophils # 0.1 0.0 - 0.2 02 [facility] HEMATOLOGY Segs 68.2 45.0 - 02 [facility] 75.0 [facility] HEMATOLOGY Lymphocytes 20.5 20.0 - 02 [facility] 40.0 [facility] HEMATOLOGY Neutrophils 6.0 1.5 - 8.1 04/06 [facility] HEMATOLOGY Basophils 0.6 0.0 - 1.0 04/06 [facility] HEMATOLOGY Lymphocytes 1.8 1.0 - 5.5 04/06 [facility] HEMATOLOGY Eosinophils 3.2 0.0 - 4.0 04/06 [facility] HEMATOLOGY Monocytes 7.5 2.0 - 12.0 04/06 [facility] HEMATOLOGY Eosinophils 0.3 0.0 - 0.5 04/06 [facility] HEMATOLOGY Monocytes # 0.7 0.0 - 0.8 04/06 [facility] HEMATOLOGY Hgb 13.3 14.0 - 04/06 [facility] 18.0 [facility] HEMATOLOGY Hct 41.1 42.0 - 02 54.0 [facility] HEMATOLOGY MCV 88.4 80.0 - 0205 94.0 2019 [facility] HEMATOLOGY MCH 28.7 27.0 - 02 [facility] 31.0 2019 [facility] HEMATOLOGY RBC 4.65 4.70 - 0205 6.10 [facility] HEMATOLOGY RDW 14.6 11.5 - 02 [facility] 14.5 [facility] HEMATOLOGY MCHC 32.5 32.0 - 02 [facility] 36.0 2019 [facility] HEMATOLOGY Platelet 238 133 - 450 02 [facility] HEMATOLOGY MPV 9.0 7.4 - 10.4 04/06 [facility] HEMATOLOGY WBC 8.8 3.7 - 10.4 02 [place] /2018 [facility] HEMATOLOGY INR 0.96 0.85 - 04/06 [place] 1.17 /2018 [facility] HEMATOLOGY PT 12.6 12.0 - 02 [place] 14.7 /2018 [facility] HEMATOLOGY PTT 34.7 22.9 - 04/06 [facility] 35.8 /2018 [facility] IMMUNOLOGY [place] Non-Reactive Non 04/06 [place] *NA* [facility] (04/06/18 8:50 AM) [place] IMMUNOLOGY Varicella <0.91 0.00 - 04/06 Result [facility] IgM 0.90 /2018 Comment: [facility] Negative <0.91
Borderline 0.91 - 1.09
Positive >1.09
Per formed At: [facility]
[address], [place] [id number]<br/ >Brian Morales MD Ph:[phone] IMMUNOLOGY Varicella <0.2 <=0.8 AI 04/06 [facility] IgG [facility] IMMUNOLOGY Hep Bs Ag Negative Negative 04/06 [facility] *NA* /2018 [facility] (04/06/18 8:50 AM) [place] IMMUNOLOGY HSV 1 IgG >8.0 <=0.8 AI 04/06 [facility] IMMUNOLOGY HSV 2 IgG <0.2 <=0.8 AI 04/06 [facility] IMMUNOLOGY Lambda Free 66.41 5.70 - 02 [facility] Light Chains 26.30 [facility] IMMUNOLOGY [place]/Lambda 1.66 0.26 - 02 [facility] Free Light 1.65 [facility] Chains Ratio [place] IMMUNOLOGY [place] Free 110.34 3.30 - 02 [facility] Light Chains 19.40 /2018 [facility] IMMUNOLOGY Hep C Ab Negative 04/06 [facility] *NA* [facility] (04/06/18 8:50 AM) [place] IMMUNOLOGY T-Spot.TB Negative Negative 04/06 [facility] (04/06/18 8:50 AM) [facility] IMMUNOLOGY SPE Interp Serum 04/06 [facility] protein [facility] electropho Center resis demonstrat es a small [...] concur with the resident's interpreta tion. CPT 46013-XQ IMMUNOLOGY Beta Glob 0.99 0.50 - 0205 [place] 1.15 [facility] IMMUNOLOGY Gamma Glob 1.28 0.71 - 04/06 [place] 1.57 [facility] IMMUNOLOGY Tot Prot 7.9 6.4 - 8.4 04/06 [facility] (SPE) /2018 [facility] IMMUNOLOGY Albumin 4.25 3.57 - 02 [facility] (SPE) 5.55 [facility] IMMUNOLOGY Gamma % 16.2 11.1 - 02 [place] 18.7 /2018 [facility] IMMUNOLOGY Alpha 1 Glob 0.43 0.18 - 0205 [place] 0.41 [facility] IMMUNOLOGY Alpha 2 Glob 0.96 0.45 - 0205 [place] 1.00 /2018 [facility] IMMUNOLOGY Alpha 1 % 5.4 2.8 - 4.9 04/06 [facility] IMMUNOLOGY Albumin % 53.8 55.8 - 04/06 [place] 66.1 /2018 [facility] IMMUNOLOGY Beta % 12.5 7.8 - 13.7 04/06 [facility] IMMUNOLOGY Alpha 2 % 12.1 7.0 - 11.9 04/06 [facility] IMMUNOLOGY EBV VCA IgM <0.2 <=0.8 AI 04/06 [facility] IMMUNOLOGY EBV VCA IgG >8.0 <=0.8 AI 04/06 [facility] IMMUNOLOGY Hep Bs Ab 5.2 <=7.4 04/06 [facility] mIU/mL /2018 [facility] IMMUNOLOGY Hep B Core Negative Negative 04/06 [facility] Ab *NA* [facility] (04/06/18 8:50 AM) [place] IMMUNOLOGY HIV Ag/Ab Negative Negative 04/06 [facility] 4th Gen *NA* [facility] (04/06/18 8:50 AM) [place] IMMUNOLOGY KAREN Ser The 04/06 [facility] Interp immunofixa /2018 [facility] tion Center electropho resis results (see pattern descriptio n) are consistent with monoclonal gammopathy of IgM-kappa isotype. Preservati on of diffusely staining immunoreac tivity indicates that the production of polyclonal immunoglob ulins is not suppressed . Relevant medical informatio n in the EMR was reviewed. I have personally reviewed the test results and concur with the resident's interpreta tion. CPT 67794-TH IMMUNOLOGY KAREN Ser A distinct 04/06 [facility] Pattern monoclonal /2018 Medical band is Center present in the IgM izabella with a correspond ing faint band in the kappa light chain [place]. The polyclonal gamma globulin background is preserved in all lanes. IMMUNOLOGY CMV IgG Reactive Non 04/06 [facility] *ABN* Reactive /2018 Medical (04/06/18 8:50 AM) [place] IMMUNOLOGY CMV IgM 0.3 04/06 [facility] LIPIDS VLDL 36 04/06 [facility] LIPIDS LDL 132 <=99 mg/dL 04/06 [facility] (Calculated) [facility] LIPIDS Chol 199 <=199 04/06 [facility] mg/dL [facility] LIPIDS Trig 182 <=149 04/06 [facility] mg/dL [facility] LIPIDS HDL 31 >=61 mg/dL 04/06 [facility] LIPIDS CHD Risk 6.42 4.00 - 04/06 [facility] 7.30 [facility] MOLECULAR HBV DNA <1.3 04/06 [facility] DIAGNOSTIC Log10 /2018 [facility] MOLECULAR Hep B PCR Not Detected 04/06 [facility] s DIAGNOSTIC Qnt (04/06/18 8:50 AM) [facility] PARASITOLOG Strongyloide Negative Negative 04/06 [place] Antibodies /2018 Comment: Medical SEROLOGY Performed At: [facility]
[address], [place] [id number]<br/ >Brian Morales MD Ph:[phone] PARATHYROID PTH Intact 180.7 18.4 - 04/06 [facility] PROFILE 80.1 [facility] SPECIAL Hgb A1C 6.5 <=5.6 % 04/06 [facility] CHEMISTRY /2018 [facility] SPECIAL PSA 1.00 0.00 - 04/06 [facility] CHEMISTRY 4.00 [facility] SPECIAL Nicotine Lvl None 04/06 Result [facility] CHEMISTRY Detected Comment: This Medical test was Center developed and its performance characteristi
determ ined by [facility]. It has not been cleared or
approv ed by the Food and Drug Administratio n.
Nicoti ne levels greater than 2.0 are consistent with the
use of tobacco or tobacco cessation products. SPECIAL Cotinine Lvl None 04/06 Result [facility] CHEMISTRY Comment: This Medical test was Center developed and its performance characteristi cs
determ ined by [facility]. It has not been cleared or
approv ed by the Food and Drug Administratio n.
Cotini ne levels greater than 20.0 are consistent with the
use of tobacco or tobacco cessation products.<br/ >Performed At: [facility]
[address], [place] [id number]<br/ >Brian Morales MD Ph:[phone] URINE AND UA <=1.0 0.1 - 1.0 04/06 [facility] Urobilinogen mg/dL [facility] URINE AND UA Sq Epi None Seen 04/06 [facility] URINE AND UA Turbidity Clear Clear 04/06 [facility] (04/06/18 8:50 AM) [facility] URINE AND UA Color Yellow Yellow 04/06 [facility] *NA* [facility] (04/06/18 8:50 AM) [place] URINE AND UA pH 5.5 5.0 - 8.0 04/06 [facility] URINE AND UA Spec Grav 1.009 <=1.030 04/06 [facility] URINE AND UA WBC 1 0 - 5 04/06 [facility] URINE AND UA Leuk Est Negative Negative 04/06 [facility] (04/06/18 8:50 AM) [facility] URINE AND UA Nitrite Negative Negative 04/06 [facility] (04/06/18 8:50 AM) [facility] URINE AND UA Ketones Negative Negative 04/06 [facility] mg/dL mg/dL [facility] URINE AND UA Glucose Negative Negative 04/06 [facility] mg/dL mg/dL [facility] URINE AND UA Protein 100 mg/dL Negative 04/06 [facility] STOOL mg/dL [facility] URINE AND UA Blood Trace Negative 04/06 [facility] STOOL *ABN* /2018 [facility] (04/06/18 8:50 AM) [place] URINE AND UA Bili Negative Negative 04/06 [facility] STOOL *NA* /2018 [facility] (04/06/18 8:50 AM) [place] URINE CHEM U Microalb 638.0 04/06 [facility] [address] [place] [address] URINE CHEM U Protein 117.7 04/06 [facility] [address] [place] [address] URINE CHEM U Prot/Creat 0.78 04/06 [facility] URINE CHEM U Creatinine 151.00 04/06 [facility] URINE AND UA 0.2 0.1 - 1.0 11/03 STO[facility] Urobilinogen /2016 [place] URINE AND UA Nitrite Negative Negative 11/03 [facility] (11/03/16 11:40 AM) [place] URINE AND UA Leuk Est Negative Negative 11/03 [facility] (11/03/16 11:40 AM) [place] URINE AND UA pH 5.5 5.0 - 8.0 11/03 [facility] [place] URINE AND UA Protein 100 mg/dL Negative 11/03 [facility] mg/dL [place] URINE AND UA Glucose Negative Negative 11/03 [facility] (11/03/16 11:40 AM) [place] URINE AND UA Blood Moderate Negative 11/03 [facility] *ABN* /2016 [place] (11/03/16 11:40 AM) URINE AND UA Ketones Negative Negative 11/03 [facility] *NA* /2016 [place] (11/03/16 11:40 AM) URINE AND UA Bili Negative Negative 11/03 [facility] *NA* /2016 [place] (11/03/16 11:40 AM) URINE AND UA Color Yellow Yellow 11/03 [facility] *NA* /2016 [place] (11/03/16 11:40 AM) URINE AND UA Spec Grav 1.020 <=1.030 11/03 [facility] [place] URINE AND UA Turbidity Clear Clear 11/03 [facility] (11/03/16 11:40 AM) [place] URINE AND UA Sq Epi Rare /LPF Few /LPF 11/03 [facility] [place] URINE AND UA Bacteria Occasional None Seen 11/03 [facility] /HPF /HPF [place] URINE AND UA WBC 0-2 /HPF None Seen 11/03 [facility] /HPF [place] URINE AND UA RBC 0-2 /HPF 0 - 2 09/ [facility] STOOL /2016 [place] URINE AND UA Hyal Cast 0-2 0 - 2 09/ [facility] STOOL (11/03/16 11:40 AM) /2016 [place] CARDIAC Troponin-I <0.02 0.00 - 09 [facility] ENZYMES 0.40 [place] CHEM PANEL Magnesium 1.5 1.8 - 2.4 11/03 MH Lvl [place] CHEM PANEL Phosphorus 2.0 2.5 - 4.5 11/03 [place] CHEM PANEL eGFR 23 11/03 Result Comment: The [place] eGFR is calculated using the CKD-EPI formula. [...] 11 0 - 37 11/03 [facility] TRANSAMINASE [place] CHEM PANEL Bili Total 0.5 0.2 - 1.3 11/03 [place] CHEM PANEL Total 8.3 6.4 - 8.4 11/03 [facility] Protein [place] CHEM PANEL CO2 22 24 - 32 11/03 [place] CHEM PANEL Calcium Lvl 8.7 8.5 - 10.5 11/03 [place] CHEM PANEL Potassium 3.9 3.5 - 5.1 11/03 MH Lvl [place] CHEM PANEL Chloride Lvl 108 95 - 109 11/03 [place] CHEM PANEL Creatinine 2.82 0.50 - 09 [facility] Lvl 1.40 [place] CHEM PANEL Sodium Lvl 139 135 - 145 11/03 [place] CHEM PANEL BUN 30 7 - 22 / [place] CHEM PANEL Glucose Lvl 137 70 - 99 / [place] CHEM PANEL Albumin Lvl 3.6 3.5 - 5.0 11/03 [place] CHEM PANEL Alk Phos 73 39 - 136 11/03 [place] CHEM PANEL ALANINE 16 0 - 65 09/ MH AMINOTRANS [place] [facility] CHEM PANEL A/G Ratio 0.8 0.7 - 1.6 11/03 [place] CHEM PANEL B/C Ratio 11 6 - 25 11/03 [place] CHEM PANEL Globulin 4.7 2.7 - 4.2 11/03 [place] CHEM PANEL AGAP 12.9 10.0 - 09 MH 20.0 [place] CHEM PANEL Lipase Lvl 144 73 - 393 11/03 [place] HEMATOLOGY Segs 75.6 45.0 - 11/03 [facility] 75.0 [place] HEMATOLOGY Basophils # 0.1 0.0 - 0.2 11/03 [place] HEMATOLOGY Monocytes # 0.9 0.0 - 0.8 11/03 [place] HEMATOLOGY Eosinophils 0.2 0.0 - 0.5 / MH /2016 [place] HEMATOLOGY Eosinophils 1.8 0.0 - 4.0 11/03 [place] HEMATOLOGY Basophils 0.6 0.0 - 1.0 11/03 [place] HEMATOLOGY Lymphocytes 14.5 20.0 - 11/03 [facility] 40.0 [place] HEMATOLOGY Monocytes 7.5 2.0 - 12.0 11/03 [place] HEMATOLOGY Segs-Bands # 9.4 1.5 - 8.1 11/03 [place] HEMATOLOGY Lymphocytes 1.8 1.0 - 5.5 09/ MH /2016 [place] HEMATOLOGY MCV 88.5 80.0 - 11/03 [facility] 94.0 [place] HEMATOLOGY MCH 29.3 27.0 - 09 [facility] 31.0 [place] HEMATOLOGY Hct 40.7 42.0 - 09 [facility] 54.0 [place] HEMATOLOGY MCHC 33.2 32.0 - 09 MH 36.0 [place] HEMATOLOGY RDW 15.1 11.5 - 09 [facility] 14.5 /2017 [place] HEMATOLOGY Hgb 13.5 14.0 - 11/03 [facility] 18.0 [place] HEMATOLOGY WBC X 10x3 12.5 3.7 - 10.4 11/03 [place] HEMATOLOGY RBC X 10x6 4.60 4.70 - 09/ MH 6.10 [place] HEMATOLOGY MPV 8.7 7.4 - 10.4 11/03 [place] HEMATOLOGY Platelet 278 133 - 450 11/03 [place] CHEM PANEL B/C Ratio 13 6 - 25 09/09 [place] CHEM PANEL Globulin 3.9 2.0 - 4.0 09/09 [place] CHEM PANEL A/G Ratio 0.9 0.7 - 1.6 09/09 [place] CHEM PANEL AGAP 8.6 10.0 - 09/09 [facility] 20.0 [place] CHEM PANEL eGFR 27 09/09 Result Comment: The [place] eGFR is calculated using the CKD-EPI formula. [...] Sodium Lvl 142 135 - 145 09/09 [place] CHEM PANEL Potassium 4.6 3.5 - 5.1 09/09 MH Lvl [facility] CHEM PANEL Creatinine 2.45 0.50 - 09/09 Lvl 1.40 [facility] CHEM PANEL Chloride Lvl 110 95 - 109 09/09 [facility] CHEM PANEL CO2 28 24 - 32 09/09 [facility] CHEM PANEL Albumin Lvl 3.5 3.5 - 5.0 07/ /2015 [place] CHEM PANEL Alk Phos 60 39 - 136 09/09 [facility] CHEM PANEL BUN 31 7 - 22 09/09 [facility] CHEM PANEL Glucose Lvl 81 70 - 99 07 [facility] CHEM PANEL Bili Total 0.4 0.2 - 1.3 07 [facility] CHEM PANEL Total 7.4 6.4 - 8.4 07/ MH Protein /2015 [place] CHEM PANEL Calcium Lvl 8.5 8.5 - 10.5 07 [facility] CHEM PANEL ALANINE 15 0 - 65 07 AMINOTRANSFE [facility] RASE CHEM PANEL ASPARTATE 12 0 - 37 09/09 MH TRANSAMINASE [place] HEMATOLOGY Eosinophils 2.6 0.0 - 4.0 09/09 /2015 [facility] HEMATOLOGY Lymphocytes 23.1 20.0 - 07 MH 40.0 [facility] HEMATOLOGY Monocytes 9.4 2.0 - 12.0 09/09 [facility] HEMATOLOGY Eosinophils 0.2 0.0 - 0.5 07/ MH # /2015 [place] HEMATOLOGY Basophils # 0.1 0.0 - 0.2 09/09 [facility] HEMATOLOGY Basophils 0.8 0.0 - 1.0 09/09 /2015 [facility] HEMATOLOGY Lymphocytes 1.8 1.0 - 5.5 07/ MH # /2015 [place] HEMATOLOGY Monocytes # 0.7 0.0 - 0.8 09/09 [facility] HEMATOLOGY Segs-Bands # 5.0 1.5 - 8.1 09/09 [facility] HEMATOLOGY Segs 64.1 45.0 - 07 MH 75.0 [facility] HEMATOLOGY Platelet 193 133 - 450 07 [facility] HEMATOLOGY MPV 8.5 7.4 - 10.4 09/09 [facility] HEMATOLOGY RDW 17.0 11.5 - 07 MH 14.5 [facility] HEMATOLOGY MCHC 32.5 32.0 - 07 MH 36.0 [facility] HEMATOLOGY MCV 89.4 80.0 - 07 MH 94.0 [facility] HEMATOLOGY RBC X 10x6 4.19 4.70 - 07 MH 6.10 [facility] HEMATOLOGY MCH 29.1 27.0 - 09/09 MH 31.0 [facility] HEMATOLOGY Hct 37.5 42.0 - 09/09 MH 54.0 [facility] HEMATOLOGY Hgb 12.2 14.0 - 09/09 MH 18.0 [facility] HEMATOLOGY WBC X 10x3 7.8 3.7 - 10.4 09/09 [facility] RAPID Grp A Strep Negative Negative 09/09 Scr (09/10/15 1:55 PM) [place] URINE AND UA Nitrite Negative Negative 06/19 STOOL (06/20/15 11:22 AM) [place] and URINE AND UA 0.2 0.1 - 1.0 06/19 [facility] Urobilinogen /2015 [place] URINE AND UA Leuk Est Negative Negative 06/19 STOOL (06/20/15 11:22 AM) [place]amini and URINE AND UA RBC 0-2 /HPF 0 - 2 06/19 STOOL /2015 [place] URINE AND UA WBC 0-2 /HPF None Seen 06/19 STOOL /HPF /2015 [place] URINE AND UA Bacteria Few /HPF None Seen 06/19 STOOL /HPF /2015 [place] URINE AND UA Sq Epi Rare /LPF Few /LPF 06/19 STOOL [place] URINE AND UA Glucose Negative Negative 06/19 STOOL (06/20/15 11:22 AM) [place]amini and URINE AND UA Blood Negative Negative 06/19 STOOL (06/20/15 11:22 AM) [place]i and URINE AND UA Ketones Negative Negative 06/19 STOOL *NA* /2015 [place] (06/20/15 11:22 AM) URINE AND UA Bili Negative Negative 06/19 STOOL *NA* /2015 [place] (06/20/15 11:22 AM) URINE AND UA Color Yellow Yellow 06/19 [facility]OOL *NA* /2015 [place] (06/20/15 11:22 AM) URINE AND UA Turbidity Clear Clear 06/19 [facility] (06/20/15 11:22 AM) Yamini and URINE AND UA pH 6.0 5.0 - 8.0 06/19 STOOL [place] URINE AND UA Spec Grav 1.010 <=1.030 06/19 STOOL [place] URINE AND UA Protein 30 mg/dL Negative 06/19 STOOL mg/dL /2015 [place] CARDIAC CK-MB INDEX <1.7 0.0 - 2.5 06/19 MH ENZYMES /2015 [place] CARDIAC Total CK 29 12 - 191 06/19 MH ENZYMES [place] CARDIAC Troponin-I <0.02 0.00 - 06/19 MH ENZYMES 0.40 [place] CARDIAC CK MB <0.5 0.5 - 3.6 06/19 MH ENZYMES [place] CHEM PANEL eGFR 27 06/19 Result Comment: The [facility] eGFR is calculated using the CKD-EPI formula. [...] A/G Ratio 0.7 0.7 - 1.6 06/19 [place] CHEM PANEL B/C Ratio 12 6 - 25 06/19 [place] CHEM PANEL Globulin 4.5 2.0 - 4.0 06/19 [place] CHEM PANEL ASPARTATE 12 0 - 37 06/19 MH TRANSAMINASE [place] CHEM PANEL AGAP 12.2 10.0 - 06/19 MH 20.0 /2016 [place] CHEM PANEL Sodium Lvl 139 135 - 145 06/19 [place] CHEM PANEL Potassium 4.2 3.5 - 5.1 06/19 MH Lvl /2015 [place] CHEM PANEL BUN 29 7 - 22 06/19 [place] CHEM PANEL Creatinine 2.47 0.50 - 06/19 MH Lvl 1.40 [place] CHEM PANEL ALANINE 23 0 - 65 06/19 MH AMINOTRANSFE /2015 [place] RASE CHEM PANEL Total 7.8 6.4 - 8.4 04 MH Protein [place] CHEM PANEL Calcium Lvl 9.0 8.5 - 10.5 06/19 [place] CHEM PANEL Bili Total 0.5 0.2 - 1.3 06/19 [place] CHEM PANEL CO2 28 24 - 32 06/19 [place] CHEM PANEL Chloride Lvl 103 95 - 109 06/19 [place] CHEM PANEL Glucose Lvl 134 70 - 99 06/19 [place] CHEM PANEL Alk Phos 57 39 - 136 06/19 [place] CHEM PANEL Albumin Lvl 3.3 3.5 - 5.0 06/19 [place] HEMATOLOGY Basophils 0.6 0.0 - 1.0 06/19 [place] HEMATOLOGY Lymphocytes 13.7 20.0 - 06/19 MH 40.0 [place] HEMATOLOGY Eosinophils 1.4 0.0 - 4.0 06/19 [place] HEMATOLOGY Monocytes 10.4 2.0 - 12.0 06/19 [place] HEMATOLOGY Basophils # 0.1 0.0 - 0.2 06/19 [place] HEMATOLOGY Eosinophils 0.2 0.0 - 0.5 06/19 MH # [place] HEMATOLOGY Segs-Bands # 8.3 1.5 - 8.1 06/19 [place] HEMATOLOGY Lymphocytes 1.5 1.0 - 5.5 06/19 MH [place] HEMATOLOGY Monocytes # 1.2 0.0 - 0.8 06/19 [place] HEMATOLOGY Segs 73.9 45.0 - 06/19 MH 75.0 [place] HEMATOLOGY MCH 28.3 27.0 - 06/19 MH 31.0 [place] HEMATOLOGY MCV 88.6 80.0 - 06/19 MH 94.0 [place] HEMATOLOGY RDW 13.4 11.5 - 06/19 MH 14. [facility] HEMATOLOGY MCHC 31.9 32.0 - 06/19 MH 36.0 [place] HEMATOLOGY WBC X 10x3 11.3 3.7 - 10.4 06/19 [place] HEMATOLOGY Hct 39.5 42.0 - 06/19 MH 54.0 [place] HEMATOLOGY Hgb 12.6 14.0 - 04/20 MH 18.0 /2016 [place] HEMATOLOGY RBC X 10x6 4.46 4.70 - 06/19 6.10 /2016 [facility] HEMATOLOGY Platelet 321 133 - 450 06/19 [facility] HEMATOLOGY MPV 8.5 7.4 - 10.4 06/19 /2015 [place] HEMATOLOGY aPTT 32.0 22.9 - 06/19 35.8 /2016 [place] HEMATOLOGY INR 1.00 0.85 - 06/19 1.17 /2015 [facility] HEMATOLOGY PROTIME 13.5 12.0 - 06/19 14.7 /2015 [facility] Pathology Reports No Data Provided for This Section Diagnostic Reports Report Value Date Source Chest wo contrast CT EXAM: CT CHEST WITHOUT CONTRAST 04/01/2019 [facility] DATE: 04/01/2019 12:44 [facility] H[facility]PITALIST Center INDICATION: - Pre-kidney transplant eval COMPARISON: [...] complete US EXAM: US ABDOMEN COMPLETE 04/01/2019 [facility] DATE: 04/01/2019 0032 hours Cente r INDICATION: [...] MRA OF THE BRAIN WITHOUT CONTRAST 2018 [facility] MRA EXAM: MR VENOGRAM OF THE BRAIN [...] IV contrast: None. FINDINGS: MRA of the pala of [place]: Normal flow-related signal i s [...] head ischemic infarction are seen on the [id number] imaging, with likely tiny infarcts throughout the [...] CT EXAM: CT CHEST WITHOUT CONTRAST 04/14/2018 [facility] DATE: 04/14/2018 12:42 INTERNAL MEDICINE HOSPITALIST Center INDICATION: transplant eval - transplant eval [...] ABDOMEN AND PELVIS WITHOUT CONTRAS T 04/14/2018 [facility] contrast CT DATE: 04/14/2018 12:42 INTERNAL MEDICINE HOSPITALIST Center INDICATION: - Iliac Vessels. Prekidney transpla [...] IV EXAM: CT abdomen and pelvis 11/03/2016 [facility] contrast CT HISTORY: Abdominal aortic aneurysm, malaise [...] Bladder is unremarkable. No free fluid. SL: [id number] Abdomen complete US EXAM: Ultrasound abdomen 11/03/2016 [facility] HISTORY: Aortic aneurysm repair, abdominal pain COMPARISON: [...] normal size. 7. IVC is visualized. SL: [id number] Neck soft tissue DX Clinical Indication: Mass; 09/10/2015 [facility] Comparison: None 2 view neck Prominent lingual tonsillar tissues. Normal epiglottis. No subglottic airway narrowing. Prevertebral soft tissues normal. No radiopaque foreign body. IMPRESSION: Suspect lingual tonsillar hypertroph y. SL: [id number] Spine lumbar wo Study: Spine lumbar wo contrast MRI 06/20/2015 [facility] contrast MRI Clinical Indication: Weakness Comparison: CT [...] stenosis throughout the lumba r spine. SL: [id number] Spine Thoracic wo Patient Name: ZENIA TIJERINA 06/20/2015 [facility] contrast MRI : 1955; Age: 60 years y/o Male MR: [id number] Study: Spine Thoracic wo contrast MRI 06/20/2015 [...] right neural foraminal narrowing at T9-T10. SL: [id number] Renal Stone CT Renal Stone CT 06/20/2015 [facility] TECHNIQUE: Contiguous transa xial images of the [...] CT of the abdomen and pelvis. SL: [id number] Chest 1view DX Portable chest: The cardiome diastinal silhouette and pulmonary vasculature are within normal limits. The lungs and pleural spaces are clear. There are no acute osseous abnormalities. There is no significant change compared to 07/06/2013. 06/20/2015 [facility] IMPRESSION: No acute radiographic abnormality in the [...] Gr oup Systolic (mm Hg) 148 04/01/2019 [facility] dical Center Diastolic (mm Hg) 76 04/01/2019 [facility] edical [place] Heart Rate 64 04/01/2019 [facility] [place] Respitory Rate 18 04/01/2019 [facility] Temperature Oral (F) 97.6 F 04/01/2019 [facility] Height 180.34 cm 04/01/2019 [facility] Weight 113.778 04/01/2019 [facility] BMI Calculated 34.98 04/01/2019 [facility] Systolic (mm Hg) 154 03/16/2019 [facility] [place] [facility] Diastolic (mm Hg) 91 03/16/2019 [facility] ed[facility] Center Heart Rate 62 03/16/2019 [facility] Medica l Center Respitory Rate 18 03/16/2019 [facility] Height 183 cm 03/16/2019 [facility] Weight 113.3 03/16/2019 [facility] BMI Calculated 33.83 03/16/2019 [facility] Weight 116.534 08/20/2018 [facility] BMI Calculated 34.84 08/20/2018 [facility] Respitory Rate 18 08/20/2018 [facility] Temperature Oral (F) 97.6 F 08/20/2018 [facility] Height 182.88 cm 08/20/2018 [facility] Center Systolic (mm Hg) 123 08/20/2018 [facility] Center Diastolic (mm Hg) 67 08/20/2018 [facility] ed[facility] Center Heart Rate 55 08/20/2018 [facility] Temperature Oral (F) 97.7 F 07/23/2018 [facility] Weight 114.045 07/23/2018 [facility] BMI Calculated 34.1 07/23/2018 [facility] Heart Rate 57 07/23/2018 [facility] Respitory Rate 18 07/23/2018 [facility] Height 182.88 cm 07/23/2018 [facility] Systolic (mm Hg) 187 07/23/2018 [facility] Center Diastolic (mm Hg) 73 07/23/2018 [facility] ed[facility] Center BMI Calculated 34.79 07/07/2018 [facility] Weight 116.364 07/07/2018 [facility] Height 182.88 cm 07/07/2018 [facility] Center Systolic (mm Hg) 160 07/07/2018 [facility] Diastolic (mm Hg) 75 07/07/2018 [facility] Temperature Oral (F) 97.7 F 07/07/2018 [facility] Heart Rate 62 07/07/2018 [facility] Medica [facility] Center Respitory Rate 18 07/07/2018 [facility] [place] [facility] Height 187.96 cm 07/07/2018 [facility] Weight 113.182 07/07/2018 [facility] BMI Calculated 32.04 07/07/2018 [facility] [place] [facility] Weight 113.3 06/23/2018 [facility] BMI Calculated 34.2 06/23/2018 [facility] Respitory Rate 20 06/23/2018 [facility] Heart Rate 60 06/23/2018 [facility] Temperature Oral (F) 97.6 F 06/23/2018 [facility] Height 182 cm 06/23/2018 [facility] Systolic (mm Hg) 141 06/23/2018 [facility] dical Center Diastolic (mm Hg) 83 06/23/2018 [facility] Weight 116 04/06/2018 [facility] Height 182 cm 04/06/2018 [facility] Respitory Rate 18 04/06/2018 [facility] Heart Rate 54 04/06/2018 [facility] BMI Calculated 35.02 04/06/2018 [facility] Systolic (mm Hg) 131 04/06/2018 [facility] dical Center Diastolic (mm Hg) 73 04/06/2018 [facility] Respitory Rate 18 11/03/2016 [place] Temperature Oral (F) 98.3 F 11/03/2016 [place] Systolic (mm Hg) 131 11/03/2016 [place] Diastolic (mm Hg) 61 11/03/2016 [place] Heart Rate 84 11/03/2016 [place] Heart Rate 75 11/03/2016 [place] Systolic (mm Hg) 143 11/03/2016 [place] Diastolic (mm Hg) 78 11/03/2016 [place] Respitory Rate 18 11/03/2016 [place] Respitory Rate 18 11/03/2016 MH [place] Systolic (mm Hg) 126 11/03/2016 [place] Diastolic (mm Hg) 82 11/03/2016 [place] Temperature Oral (F) 98.2 F 11/03/2016 [place] Heart Rate 88 11/03/2016 [place] Weight 118.182 11/03/2016 [place] BMI Calculated 33.45 11/03/2016 [place] Height 187.96 cm 11/03/2016 [place] Temperature Oral (F) 98.0 F 11/03/2016 [facility] [place] Systolic (mm Hg) 136 09/10/2015 MH [place] Diastolic (mm Hg) 72 09/10/2015 [place] Temperature Oral (F) 98.1 F 09/10/2015 [place] Heart Rate 60 09/10/2015 [place] Respitory Rate 20 09/10/2015 [place] Temperature Oral (F) 97.7 F 09/10/2015 [place] Respitory Rate 18 09/10/2015 MH [place] Heart Rate 58 09/10/2015 MH [place] Systolic (mm Hg) 140 09/10/2015 MH [place] Diastolic (mm Hg) 65 09/10/2015 [place] Systolic (mm Hg) 105 06/20/2015 [place] Diastolic (mm Hg) 50 06/20/2015 [place] Respitory Rate 16 06/20/2015 [place] Temperature Oral (F) 98.6 F 06/20/2015 [place] Systolic (mm Hg) 115 06/20/2015 MH [place] Diastolic (mm Hg) 66 06/20/2015 [facility] [place] Respitory Rate 20 06/20/2015 [place] Respitory Rate 19 06/20/2015 [place] Systolic (mm Hg) 110 06/20/2015 [place] Diastolic (mm Hg) 61 06/20/2015 [place] Temperature Oral (F) 97.7 F 06/20/2015 [place] Weight 118.182 06/20/2015 [place] Heart Rate 71 06/20/2015 [place] Encounters Location Location Encounter Encounter Reason Attending ADM DC Stat us Source Details Type Number For Provider Date Date Visit [facility] Outpt Diag [id number] Segundo Lugo 06/05 06/06 [facility] EC [id number] Mayura 06/19 06/19 [facility] Thornton /2015 Paige ma [facility] EC [id number] Brigido 09/09 09/09 [facility] 2 Gemma /2015 [place] and [facility] Emergency [id number] Damion 11/03 11/03 [place] 3 Garbino /2016 [facility] Outpt Diag [id number] Lucila 09/23 09/23 M [facility] Outpatient [facility] 2 Monet [facility] OP [id number] [place] 04/06 05/06 [place] [facility] 0 [facility] [place] Pre [facility] Outpatient [id number] Katey 05/12 05/13 [place] [facility] 4 [facility] Recurring [id number] Camelia 06/23 07/23 [facility] 2 Ayden [facility] Outpt Diag [id number] Camelia 06/30 07/01 [facility] Outpatient [facility] 3 Ayden [facility] for Phone [id number] 07/07 07/09 [facility] Failure for Adv Heart Failure [facility] [id number] [place] 07/07 08/06 [place] 1 De ovi [facility] Center Advanced Heart Failure [facility] OP [id number] [place] 08/20 09/19 [place] Transplant 3 De ovi [facility] [place] Pre [facility] OP [id number] [place] 03/16 04/15 [place] [facility] 5 De [facility]vi [facility] er Advanced Pre Heart Failure [facility] [id number] Arnaldo 04/01 04/02 [place] [facility] 6 Y[facility]uda [facility] Outpatient [id number] Tung [facility] 04/27 [facility]patient [id number] 04/27 [facility] 1 -PROCEDURE 2020 Oni n ROOM 2, Outpatient [id number] 04/27 [facility] 2 -PROCEDURE 2020 Oni n ROOM 1, [facility] Outpatient [id number] [place] 04/27 04/28 [facility] Outpatient [id number] Tung Carmelina 04/27 04/28 [facility] Outpatient [id number] [place] 04/27 04/28 [facility] Outpatient [id number] Silvino Carmelina 10/[address] [facility] [place] Procedures Procedure Code Date Perfomer Comments Source Complex cystometrogram 24642 Medical (ie, calibrated 0 Group electronic equipment); with voiding pressure studies (ie, bladder voiding pressure) and urethral pressure profile studies (ie, urethral closure pressure profile), any technique Electromyography studies 09620 Medical (EMG) of anal or 0 Group urethral sphincter, other than needle, any technique Cystourethroscopy 60284 [facility] (separate procedure) 0 [place] [address] [facility] Medical cystography or voiding 0 Gr oup urethrocystography Voiding pressure 52713 Medic al studies, intra-abdominal 0 Group (ie, rectal, gastric, intraperitoneal) (List separately in addition to code for primary procedure) Complex uroflowmetry [address] [facility] edical (eg, calibrated 0 Group [place] [address] [facility] post-voiding residual 0 Mely up urine and/or bladder capacity by ultrasound, non-imaging AAA - Repair of [id number] Medica l abdominal aortic Group, aneurysm using [facility] [place], LAURA Zaldivar, LAURA Xavier, [facility] Heart Failure Assessment and Plan No Data Provided for This Section Plan of Care No Data Provided for This Section Social History Social History Date Source Social History TypeResponse 03/16/2019 [facility] Alcohol Current, Type Beer. Frequency: 1-2 times [...]
--- OUTSIDE RECORDS SUMMARY | 2020-01-21 08:24 | XMS REPORT | Summary of Care ---
:1955 Author Name SHARONA Mtz Address Unavailable Unavailable , Care Team Providers Name Role Phone SHARONA Mtz Unavailable Unavailable MAIKOL ARCOS CA Unavailable Unavailable Ayden ARCOS Unavailable Unavailable TEIXEIRA MD Unavailable Unavailable SHARONA ARCOS Unavailable Unavailable Unavailable Unavailable Unavailable Functional Status Name Dates Details Functional status health issues are not documented Status: Name Dates Details Cognitive status health issues are not documented Status: Problems Name Dates Details Prophylactic antibiotic (V58.62, Z79.2) Status: Active BPH (benign prostatic hyperplasia) (600.00, N40.0) Status: Active Low compliance bladder (596.52, N31.8) S tatus: Active Adult polycystic kidney disease (753.13, Q61.2) Status: Active Microscopic hematuria (599.72, R31.29) S tatus: Active Proteinuria (791.0, R80.9) Status: Activ e CKD (chronic kidney disease) (585.9, N18.9) Status: Active Prostate cancer screening (V76.44, Z12.5) Status: Active Hyperfunction, 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, 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 History of multiple pulmonary nodules (V12.69, Z87.898) Status: Active Aneurysm (442.9, I72.9) Status: Active Erectile dysfunction (607.84, N52.9) Sta tus: Active Medications Name Dates Details Aspirin 81 MG TABS Refills: 0 Active Allopurinol 300 MG Oral Tablet Refills: 0 Active Magnesium 400 MG CAPS Refills: 0 Active Metoprolol Tartrate 50 MG Oral Tablet Refills: 0 Active Carvedilol 3.125 MG Oral Tablet Refills: 0 Active Tamsulosin HCl 0.4 MG CP24 Refills: 0 Active raNITIdine 150 Max Strength TABS Refills: 0 Active Calcitriol CAPS Refills: 0 Active amLODIPine Besylate 10 MG Oral Tablet Refills: 0 Active Atorvastatin Calcium 20 MG Oral Tablet Refills: 0 Active Cyclobenzaprine HCl - 10 MG Oral Tablet Refills: 0 Active Tadalafil 5 MG Oral Tablet TAKE 1 TABLET BEDTIME Quantity: 90 Refills: 3 ROSELINE TABOR M.D. Start : 24-Oct-2019 Active Tadalafil 20 MG Oral Tablet TAKE 1 TABLET 1 HOUR BEFORE ACTIVITY NEEDED. Quantity: 12 Refills: 0 ROSELINE TABOR M.D. Start : 24-Oct-2019 Active Allergies and Adverse Reactions Name Dates Details No Known Drug Allergies (Allergy) Status : Active Past Medical History Name Dates Details History of chronic obstructive lung disease (V12.69, Z87.09) Status: Resolved History of essential hypertension (V12.59, Z86.79) Status: Resolved History of hyperlipidemia (V12.29, Z86.39) Status: Resolved Procedures Procedure Dates Details CT Abdomen/Pelvis w/wo contrast 19886 Date: 24-Oct-2019 CT Chest wo contrast 76334 Date: 24-Oct-2019 History of Abdominal aortic aneurysm repair Completed Immunization Name Dates Details Immunizations not documented Family History Name Dates Details Family history of End stage renal disease (585.6, N18.6) Status: Active Family history of Kidney transplant recipient (V42.0, Z94.0) Status: Active Family history of Polycystic kidney (753.12, Q61.3) Status: Active Social History Name Dates Details - Status: Name Dates Details Ex-smoker (finding) Vital Signs Date Test Result Details No Known Vitals to report Results Date Description Value Details Results not documented Plan of Care Name Dates Details Planned Observations Planned Goals not documented Planned Encounters Nephrology Referral Appointment; ROSELINE TABOR M.D. On: 04-Jan-2020 14:00 Appointment; ROSELINE TABOR M.D. On: 23-Apr-2020 8:30 Interventions Provided Medication ChangesTadalafil 20 MG Oral Tablet - StartTadalafil 5 MG Oral Tablet - StartLabs/Procedures/ImagingCT Abdomen/Pelvis w/wo contrast 40211; To Be Done: 24 Oct 2019CT Chest wo contrast 85783; To Be Done: 24 Oct 2019 Instructions Name Dates Details Instructions not documented Encounters Appointment; YURI MALLORY M.D. On: 019 10:00 Encounter Diagnosis: Problem not documented Appointment; ANA DEJESUS M.D. On: 23-Jun-2018 10:00 Encounter Diagnosis: Problem not documented Appointment; YURI MALLORY M.D. On: 2018 14:00 Encounter Diagnosis: Problem not documented Appointment; ORGANTRANSPLANT, OP On: 16-Mar-2019 8:30 Encounter Diagnosis: Problem not documented Appointment; ROSELINE TABOR M.D. On: 24-Oct-2019 9:45 Encounter Diagnosis: Problem not documented
--- OUTSIDE RECORDS SUMMARY | 2020-01-21 08:24 | XMS REPORT | Summary of Care ---
:1955 Author Name SHARONA Mtz Address Unavailable Unavailable , Care Team Providers Name Role Phone SHARONA Mtz Unavailable Unavailable MAIKOL ARCOS NE Unavailable Unavailable Ayden ARCOS Unavailable Unavailable TEIXEIRA [...] Procedure Dates Details CT Abdomen/Pelvis w/wo contrast 84624 Date: 24-Oct-2019 CT Chest wo contrast 26686 Date: 24-Oct-2019 History of Abdominal aortic aneurysm [...] (finding) Vital Signs Date Test Result Details [id number]:12 Systolic blood pressure 136 mm[Hg] Status: Comments: Location: LUE; Position: Sitting Diastolic blood pressure 71 mm[Hg] Status: Comment s: Location: LUE; Position: Sitting Body height 74 in Status: Weight 250 lb Status: Body mass index (BMI) [Ratio] 32.1 kg/m2 Status: Body surface area Derived from formula 2.39 m2 S tatus: Heart Rate 60 /min Status: Comments: Lo cation: L Brachial Artery; Body temperature 97.8 f Status: Comments: Me thod: Temporal Results Date Description Value Details Results not documented Plan of Care Name Dates Details Planned Observations Planned Goals not documented Planned Encounters Nephrology Referral Appointment; ROSELINE TABOR M.D. On: 04-Jan-2020 14:00 Appointment; ROSELINE TABOR M.D. On: 23-Apr-2020 8:30 Interventions Provided Medication ChangesTadalafil 20 MG Oral Tablet - StartTadalafil 5 MG Oral Tablet - StartLabs/Procedures/ImagingCT Abdomen/Pelvis w/wo contrast 52513; To Be Done: 24 Oct 2019CT Chest wo contrast 46703; To Be Done: 24 Oct 2019 Instructions [...]
--- OUTSIDE RECORDS SUMMARY | 2020-01-21 08:24 | XMS REPORT | Summary of Care ---
:1955 Author Name Tramaine Address Unavailable Unavailable , Care Team Providers Name Role Phone SHARONA Mtz Unavailable Unavailable MAIKOL ARCOS [place] Unavailable Unavailable Ayden ARCOS Unavailable Unavailable TEIXEIRA [...] Details Aspirin 81 MG TABS Refills: 0 M.D.Active Allopurinol 300 MG Oral Tablet Refills: 0 M.D.Active Magnesium 400 MG CAPS Refills: 0 M.D.Active Metoprolol Tartrate 50 MG Oral Tablet Refills: 0 M.D.Active Carvedilol 3.125 MG Oral Tablet Refills: 0 M.D.Active Tamsulosin HCl 0.4 MG CP24 Refills: 0 M.D.Active raNITIdine 150 Max Strength TABS Refills: 0 M.D.Active Calcitriol CAPS Refills: 0 M.D.Active amLODIPine Besylate 10 MG Oral Tablet Refills: 0 M.D.Active Atorvastatin Calcium 20 MG Oral Tablet Refills: 0 M.D.Active Cyclobenzaprine HCl - 10 MG Oral Tablet Refills: 0 M.D.Active Tadalafil 5 MG Oral Tablet TAKE 1 TABLET BEDTIME Quantity: 90 Refills: 3 SHARONA Mtz ROSELINE Start : 24-Oct-2019 Active Tadalafil 20 MG [...] Z86.39) Status: Resolved Procedures Procedure Dates Details History of Abdominal aortic aneurysm repair Completed Immunization Name Dates Details Immunizations not documented Family History Name Dates Details Family history of End stage renal disease (585.6, N18.6) Status: Active Family history of Polycystic kidney (753.12, Q61.3) Status: Active Family history of Kidney transplant recipient (V42.0, Z94.0) Status: Active Social History Name Dates Details - Status: Name Dates Details Ex-smoker (finding) Vital Signs Date Test Result Details No Known Vitals to report Results Date Description Value Details Results not documented Plan of Care Name Dates Details Planned Observations Planned Goals not documented Planned Encounters Appointment; ROSELINE TABOR M.D. On: 23-Apr-2020 8:30 Instructions Name Dates Details Instructions not documented Encounters Appointment; YURI MALLORY M.D. On: 10:00 Encounter Diagnosis: Problem not documented Appointment; ANA DEJESUS M.D. On: 23-Jun-2018 10:00 Encounter Diagnosis: Problem not documented Appointment; YURI MALLORY M.D. On: 2018 14:00 Encounter Diagnosis: Problem not documented Appointment; [facility]GANTRANSPLANT, OP On: 16-Mar-2019 8:30 Encounter Diagnosis: Problem not documented Appointment; ROSELINE TABOR M.D. On: 24-Oct-2019 9:45 Encounter Diagnosis: Problem not documented
--- OUTSIDE RECORDS SUMMARY | 2020-01-21 08:24 | XMS REPORT | Summary of Care ---
:1955 Author Name SHARONA Mtz Address Unavailable Unavailable , Care Team Providers Name Role Phone SHARONA Mtz Unavailable Unavailable MAIKOL ARCOS [place] Unavailable Unavailable Ayden ARCOS Unavailable Unavailable TEIXEIRA [...] Procedure Dates Details CT Abdomen/Pelvis w/wo contrast 34179 Date: 24-Oct-2019 CT Chest wo contrast 36368 Date: 24-Oct-2019 History of Abdominal aortic aneurysm [...] (finding) Vital Signs Date Test Result Details [id number] Systolic blood pressure 136 mm[Hg] Status: Comments: [...] Oral Tablet - StartLabs/Procedures/ImagingCT Abdomen/Pelvis w/wo contrast 75249; To Be Done: 24 Oct 2019CT Chest wo contrast 95515; To Be Done: 24 Oct 2019 Instructions [...]
--- OUTSIDE RECORDS SUMMARY | 2020-01-21 08:24 | XMS REPORT | Continuity of Care Document ---
:1955 Author Organization [facility] t Address [address] [place] [address] Care Team Providers Name Role Phone CARMELINA [...] FOR OTHER PREPROCEDU Active 09/06/2019 [facility] Zen LAB Diagnosis Active 2019-05-13 Mem oria 3-09 08:44:00 l LABH 11:00: Zen 00 Active 05/09/2019 [facility] F/U Diagnosis Active 2019-04-01 Mem oria 1-16 09:26:00 l F/U 00:00: [place] 00 Active 03/17/2019 [facility] LISTED Diagnosis Active 2019-04-01 Mem oria UPDATE 1-07 13:11:00 l LISTED 00:00: Zen UPDATE 00 Active 03/08/2019 [facility] FOLLOW UP Diagnosis Active 2019-04-04 Memoria 1- 07:14:00 l FOLLOW 00:00: [place] UP 00 Active 0 [facility] LABS Diagnosis Active 2018-09-14 Mem oria 5-23 14:06:00 l LABS 00:00: Zen 00 Active 07/22/2018 [facility] D47.2 - Diagnosis Active 2019-05-19 Me moria MONOCLONAL 4-26 13:49:00 l GAMMOPATHY D47.2 - 00:01: Her sarmiento MONOCLONAL 00 GAMMOPATHY Active 06/25/2018 LAURA Zen CKD 9 Diagnosis Active 2018-05-12 Mem oria CHRONIC - 09:07:00 l KIDNEY CKD 9 00:00: Zen DISEASE CHRONIC 00 KIDNEY DISEASE Active 04/23/2018 [facility] ELEVATED Diagnosis Active 2018-10-20 M emoria GAMMA 2- 12:47:00 l GLOBULIN/ ELEVATED 00:00: Her sarmiento PRE GAMMA 00 -KIDNEY GLOBULIN/ WOR PRE -KIDNEY WOR Active 04/22/2018 [facility] KIDNEY/DO Diagnosis Active 2019-07-07 Memoria NOT USE 2-05 15:56:00 l FOR 06:00: Zen CHARGES KIDNEY/DO 00 F/C NOTES NOT USE FOR CHARGES F/C NOTES Active 04/06/2018 [facility] ESRD EVAL Diagnosis Active 2018-07-23 Memoria 2-04 08:22:00 l ESRD 00:00: Zen EVAL 00 Active 04/05/2018 [facility] NEW Diagnosis Active 2018-04-26 Mem oria EVALUATION - 14:53:00 l NEW 00:00: Zen EVALUATION 00 Active 03/18/2018 [facility] Z87.891 - Diagnosis Active 2017-10-24 Memoria PERSONAL 7- 15:42:00 l HISTORY OF Z87.891 00:01: Her sarmiento NICOTINE D - PERSONAL 00 HISTORY OF NICOTINE D Active 09/08/2017 [facility] WEAKNESS Diagnosis Active 2016-11-03 M emoria 9-04 10:50:00 l WEAKNESS 00:00: Oni n 00 Active 11/03/2016 [facility] [place] THROAT Diagnosis Active 2015-09-10 Mem oria PAIN - 14:15:00 l THROAT 00:00: Zen PAIN 00 Active 09/10/2015 [facility] Zen CHEST PAIN Diagnosis Active 2015-06-20 Memoria 4-19 10:33:00 l CHEST 00:00: Zen PAIN 00 Active 06/19/2015 [facility] Zen 491.20 - Diagnosis Active 2013-10-21 M emoria OBST CHR 7-12 10:38:00 l BRONC 491.20 - 00:01: Oni n OBST CHR 00 [facility] Active 09/10/2012 [facility] History [...] hyperlipid d it y of emia emia [place] [facility] Prophylact Prophylact Problem Active U nivers ic ic [place] of antibiotic antibiotic [place] [facility] BPH BPH Problem Active Univers (benign (benign ity of prostatic prostatic [place] hyperplasi hyperplasi Ph ysici a) a) ans Low Low Problem Active Univers compliance compliance it y of bladder bladder [place] [facility] Adult Adult Problem Active Univers [...] 2015-06-23 Memor ia Weakness 04:12:43 l Final: [place] Weakness 06/23/2015 [facility] Final: Problem 2015-06-23 Memor ia Abdominal 04:12:43 l aortic Final: Zen aneurysm, Abdominal without aortic rupture aneurysm, without rupture 06/23/2015 [facility] Final: Problem 2015-06-23 Memor ia Hypertensi 04:12:43 l ve chronic Final: Herm nora kidney Hypertensi disease ve chronic with stage kidney 1 through disease stage 4 with stage chronic 1 through kidney stage 4 disease, chronic or kidney unspecifie disease, d chronic or kidney unspecifie disease d chronic kidney disease 06/23/2015 [facility] Final: Problem 2015-06-23 Memor ia Chronic 04:12:43 l kidney Final: [place] disease, Chronic unspecifie kidney d disease, unspecifie d 06/23/2015 [facility] Abdominal Problem Resolve 2019-04-30 M emoria aortic d 00:47:41 l aneurysm [place] (disorder) Abdominal aortic aneurysm (disorder) Resolved Problem 04/30/2019 [facility], MorenitaM LAURA Zaldivar, LAURA Xavier,[facility] Diabetic Problem Resolve 2019-04-30 Me moria neuropathy d 00:47:41 l (disorder) Diabetic He rmann neuropathy (disorder) Resolved Problem 04/30/2019 [facility] Kidney Problem Active 2019-04-16 Memor ia disease 23:45:59 l (disorder) Kidney Herm nora disease (disorder) Active Problem 04/16/2019 [facility], [facility] Antibiotic Problem Active 2019-04-30 M emoria prophylaxi 00:47:41 l s Zen indicated Antibiotic (context-d prophylaxi ependent s category) indicated (context-d ependent category) Active Problem 04/30/2019 [facility] Arthritis Problem Active 2019-04-30 Me moria (disorder) 00:47:41 l Zen Arthritis (disorder) Active Problem 04/30/2019 [facility], LAURA Zaldivar, [facility] [...] n disorder (disorder) Active Problem 04/30/2019 [facility], LAURA Zaldivar, [facility] Chronic Problem Active 2019-04-30 Jonathan kayden kidney 00:47:41 l disease Chronic Oni n (disorder) kidney disease (disorder) Active Problem 04/30/2019 [facility] Chronic Problem Active 2019-04-30 Jonathan kayden obstructiv 00:47:41 l e lung Chronic [place] disease obstructiv (disorder) e lung disease (disorder) Active Problem 04/30/2019 Data migrated from [employer] on 07/29/14. [facility], Diana Xavier, LAURA Zaldivar, LAURA XavierM [facility] Essential Problem Active 2019-04-30 Me moria hypertensi 00:47:41 l on Zen (disorder) Essential hypertensi on (disorder) Active Problem 04/30/2019 Data migrated from [employer] on 07/29/14. [facility], Diana Xavier, Diana Buchanan [facility] Gastroesop Problem Active 2019-04-30 M emoria hageal 00:47:41 l reflux [place] disease Gastroesop (disorder) hageal reflux disease (disorder) Active Problem 04/30/2019 Data migrated from [employer] on 07/29/14. [facility], Diana Xavierann, LAURA Xavier,M [facility] Gout Problem Active 2019-04-30 Memor ia (disorder) 00:47:41 l Gout [place] (disorder) Active Problem 04/30/2019 Data migrated from [employer] on 07/29/14. [facility], [place],Rust LAURA Zaldivar, LAURA Xavier,[facility] Hyperchole Problem Active 2019-04-30 M emoria sterolemia 00:47:41 l (disorder) Oni n Hyperchole sterolemia (disorder) Active Problem 04/30/2019 Data migrated from [employer] on 07/29/14. [facility], [place]ust LAURA Zaldivar, LAURA Xavier,[facility] Hyperlipid Problem Active 2019-04-30 M emoria emia 00:47:41 l (disorder) Oni n Hyperlipid emia (disorder) Active Problem 04/30/2019 [facility], Means,Rust LAURA Zaldivar, LAURA Xavier,[facility] Hypertensi Problem Active 2019-04-30 M emoria ve 00:47:41 l disorder, Zen systemic Hypertensi arterial ve (disorder) disorder, systemic arterial (disorder) Active Problem 04/30/2019 [facility], Means,Rust LAURA basilio, LAURA Zaldivar, LAURA Xavier,M [facility] Hypogonadi Problem Active 2019-04-30 M emoria sm 00:47:41 l (disorder) Oni n Hypogonadi sm (disorder) Active Problem 04/30/2019 Data migrated from [employer] on 07/29/14. [facility], [place]ust LAURA Zaldivar, LAURA Xavier,[facility] Inflammato Problem Active 2019-04-30 M emoria ry disease 00:47:41 l of liver [place] (disorder) Inflammato ry disease of liver (disorder) Active Problem 04/30/2019 [facility], LAURA Zaldivar, [facility] Low Problem Active 2019-04-30 Memor ia compliance 00:47:41 l bladder Low [place] (disorder) compliance bladder (disorder) Active Problem 04/30/2019 [facility] Microscopi Problem Active 2019-04-30 M emoria c 00:47:41 l hematuria [place] (disorder) Microscopi c hematuria (disorder) Active Problem 04/30/2019 [facility] Morbid Problem Active 2019-04-30 Memor ia obesity 00:47:41 l (disorder) Morbid Herm nora obesity (disorder) Active Problem 04/30/2019 [facility], LAURA Zaldivar, [facility] Patient Problem Active 2019-04-30 Jonathan kayden encounter 00:47:41 l status Patient Zen (finding) encounter status (finding) Active Problem 04/30/2019 [facility] Proteinuri Problem Active 2019-04-30 M emoria a 00:47:41 l (finding) Zen Proteinuri a (finding) Active Problem 04/30/2019 [facility] CHRONIC Diagnosis Active 2018-05-12 Me moria KIDNEY 09:07:00 l DISEASE, CHRONIC Mehreen nn UNSPECIFIE KIDNEY D DISEASE, UNSPECIFIE D Active [facility] ENCOUNTER Diagnosis Active 2018-05-12 Memoria FOR OTHER 09:07:00 l PREPROCEDU Oni n RAL EXAMIN ENCOUNTER FOR OTHER PREPROCEDU RAL EXAMIN Active [facility] ABDOMINAL Diagnosis Active 2019-04-01 Memoria DISTENSION 09:26:00 l (GASEOUS) Zen ABDOMINAL DISTENSION (GASEOUS) Active [facility] ENCOUNTER Diagnosis Active 2019-05-13 Memoria FOR 08:44:00 l PREPROCEDU Oni n RAL ENCOUNTER LABORATORY FOR E PREPROCEDU RAL LABORATORY E Active [facility] Hypomagnes Problem 2016-11-06 2016-11-06 Memoria emia 11-03 00:37:30 00:37:30 l 05:00: Zen Patricio 00 emia 11/03/2016 11/06/2016 [place] Weakness Problem 2016-11-06 2016-11-06 Memoria 11-03 00:37:30 00:37:30 l Weakness 05:00: Oni n 00 11/03/2016 11/06/2016 [place] Other Problem 2016-11-06 2016-11-06 M emoria disorders 9-04 00:37:30 00:37:30 l of Other 05:00: Zen phosphorus disorders 00 metabolism of phosphorus metabolism 11/03/2016 11/06/2016 Means Discharge Problem 2015-09-13 2015-09-13 Memoria Diagnosis: 7- 03:04:21 03:04:21 l Sore 05:00: [place] throat Discharge 00 Diagnosis: Sore throat 09/10/2015 09/13/2015 Means Discharge Problem 2015-09-13 2015-09-13 Memoria Diagnosis: 7 03:04:21 03:04:21 l Foreign 05:00: Zen body (FB) Discharge 00 in soft Diagnosis: tissue Foreign (Throat) body (FB) in soft tissue (Throat) 6 09/13/2015 Means Discharge Problem 2015-06-23 2015-06-23 Memoria Diagnosis: 4- 04:12:43 04:12:43 l Weakness 05:00: Zen Discharge 00 Diagnosis: Weakness 6 06/23/2015 Means Discharge Problem 2015-06-23 2015-06-23 Memoria Diagnosis: 4- 04:12:43 04:12:43 l Chronic 05:00: Zen back pain Discharge 00 Diagnosis: Chronic back pain 06/20/2015 06/23/2015 Means Discharge Problem 2015-06-23 2015-06-23 Memoria Diagnosis: 4- 04:12:43 04:12:43 l History of 05:00: Oni n AAA Discharge 00 (abdominal Diagnosis: aortic History of aneurysm) AAA repair (abdominal aortic aneurysm) repair 06/20/2015 06/23/2015 [facility] Allergies, Adverse Reactions, Alerts Allergy Allergy Status Severity Reaction(s) Onset Inactive Treating Comm ents Source Name Type Date Date Clinician No Known No Known Active Memori a Medicati Medicati l on on [place] Allergie Allergie s s Family History Family Member Diagnosis Comments Start Date Stop Date Source Father Family history of End Uni [facility] [place] stage renal disease Physi cians Father Family history of Univers [facility]y of [place] Kidney transplant Physici ans recipient Father Family history of [facility] [place] Polycystic kidney Physici ans Social History Social Habit Start Date Stop Date Quantity Comments Source Social History 2018-04[facility]06 [facility] 19:50:33 Smoking Status Start Date Stop Date Source Social History 2013-07-06 23:35:17 2013-07-06 23:35:17 [facility] Medications Ordered Filled Start Stop Current Ordering Indication Dosage Frequency Signature Comments Components Source Medication Medication Date Date Medication? Clinician (SIG) Name Name Tadalafil 5 Tadalafil 5 2020-0 Yes SILVINO COSME 1 TAKE 1 Univers MG Oral MG Oral 8-24 M.D. TABLET ity of Tablet Tablet 00:00: BEDTIME [place] 00 Physici ans Tadalafil Tadalafil 2020-0 Yes SILVINO COSME TAKE 1 Univers 20 MG Oral 20 MG Oral 8-24 M.D. TABLET 1 ity of Tablet Tablet 00:00: HOUR [place] 00 BEFORE Physici ACTIVITY ans NEEDED. Ceftriaxone 2020-0 No 1 gm, Memor ia 04-27 Route: IM, l 16:16: Drug form: Zen 00 PDR/INJ, ONCE, Dosing Weight 113.636, kg, Priority: STAT, Start date: 04/27/19 10:16:00 RACK PULLER, Stop date: 04/27/19 10:16:00 RACK PULLER amLODIPine 2020-0 Yes 5 mg = 1 Mem oria 5 mg oral 1-31 tab, PO, l tablet 22:40: Daily, # [place] 00 90 tab, 3 Refill(s), Pharmacy: [id number] atorvastati 2020-0 Yes 20 mg = 1 M emoria n 20 mg 1-31 tab, PO, l oral tablet 22:40: Bedtime, # [place] 00 90 tab, 2 Refill(s), Pharmacy: [facility] #[id number] atorvastati 2020-0 No 20 mg = 1 M emoria n 20 mg 1-31 tab, PO, l oral tablet 22:39: Bedtime, # Zen 00 90 tab, 3 Refill(s) amLODIPine 2020-0 No 5 mg = 1 Mem oria 5 mg oral 1-31 tab, PO, l tablet 22:39: Daily, # Zen 00 90 tab, 1 Refill(s) Metoprolol 2020-0 [...] 00 PAIN 30 MG Oral Tablet MethylPREDN 0 No See Memori a ISolone 1-15 Instructio l Dose Pack 4 14:16: ns, PO, Her sarmiento mg oral 00 Daily, Use tablet as directed on label., 0 Refill(s) carvedilol 2019- Yes 25 mg = 1 Me moria 25 mg oral 1-15 tab, PO, l tablet 14:16: BID, 1 Zen 00 Refill(s) carvedilol 2018- Yes 6.25 mg = Me moria 6.25 mg 5-24 1 tab, PO, l oral tablet 14:21: Q12H, # 60 Zen 00 tab, 5 Refill(s), Pharmacy: [id number] atorvastati 2018- Yes 10 mg = 1 M emoria n 10 mg 5-24 tab, PO, l oral tablet 14:21: Bedtime, # [place] 00 30 tab, 5 Refill(s), Pharmacy: [facility] #[id number] carvedilol 2018- No 3.125 mg = M emoria 3.125 mg 4-24 1 tab, PO, l oral tablet 17:20: BID, 0 Herm nora 00 Refill(s) calcitriol 2019-0 Yes 0.25 Memoria 0.25 mcg 4-24 microgram l oral 17:20: = 1 cap, Zen capsule 00 PO, Daily, 0 Refill(s) tamsulosin Yes 0.4 mg = 1 M emoria 0.4 mg oral 4-24 cap, PO, l capsule 17:20: Daily, 0 Oni n 00 Refill(s) metoprolol Yes 50 mg = 1 Me moria tartrate 50 2-06 tab, PO, l mg oral 01:26: Daily Zen tablet 00 carvedilol Yes 12.5 mg = Me moria 12.5 mg 2-06 1 tab, PO, l oral tablet 01:24: BID, WITH H ermann 00 FOOD amLODIPine Yes 10 mg = 1 Me moria 10 mg oral 2-06 tab, PO, l tablet 00:10: Daily, # Zen 00 30 tab, 0 Refill(s) magnesium Yes 400 mg = 1 Me moria oxide 400 2-05 tab, PO, l mg oral 23:05: Daily Zen tablet 00 Metoprolol Yes 25 mg = Jonathan kayden Tartrate 50 2-05 0.5 tab, l mg oral 23:05: PO, BID Zen tablet 00 Glipizide Yes 10 mg = 1 Mem oria 10 MG Oral 2-04 tab, PO, l Tablet 20:52: Daily, 0 [place] 00 Refill(s) pravastatin Yes 80 mg = 1 M emoria 80 mg oral 2-04 tab, PO, l tablet 20:52: Daily, 0 Zen 00 Refill(s) Amlodipine No 10 mg, PO, M emoria 2-04 Daily, 0 l 20:52: Refill(s) Zen 00 Esomeprazol Yes 40 mg = 1 [...] tab, PO, l tablet 20:52: Daily, 0 [place] 00 Refill(s) Doxepin Yes 6 mg, PO, Memor ia 2-04 Bedtime, 0 l 20:52: Refill(s) [place] carvedilol No 3.125 mg = M emoria 3.125 mg 2-04 1 tab, PO, l oral tablet 20:52: BID, 0 Herm nora 00 Refill(s) losartan 25 Yes 25 mg = 1 M emoria mg oral 2-04 tab, PO, l tablet 20:52: Daily, 0 [place] 00 Refill(s) Ranitidine Yes 150 mg = 1 M emoria 150 MG Oral 2-04 tab, PO, l Tablet 20:52: Bedtime, 0 Mehreen nn 00 Refill(s) Adult Yes 81 mg = 1 Memoria Aspirin 81 2-04 tab, CHEW, l mg oral 20:52: Daily, 0 Oni n tablet, 00 Refill(s) chewable potassium No Notes: Memori a phosphate-s 11-03 (Same as: l odium 20:02: Phos-NaK) [place] phosphate 00 Each 1.5 250 mg-45 gm pkt has mg-298 mg 250mg oral tablet phosphorou s. Mix w/2.5oz water and stir. potassium No Notes: Memori a phosphate 11-03 (Same as: l 155 MG / 19:54: K-Phos [place] Sodium 00 Neutral, Phosphate, Phospha Dibasic 852 250 MG / Sodium Neutral) Phosphate, Monobasic 130 MG Oral Tablet [K-Phos Neutral] Magnesium No Notes: Memori a Sulfate 11-03 WASTE: F/P l 19:52: - Sink; E Zen - Municipal Trash Bin GI cocktail No Notes: Jonathan kayden 11-03 G.I. l 15:34: Cocktail = Zen 00 antacid with simethicon e 22.5 mL [...] 0.9% 9-04 (Same as: l 15:34: BD [place] Posiflush) clindamycin Yes 300 mg = 1 Memoria 300 mg oral 7-11 cap, PO, l capsule 21:49: TID, X 10 Mehreen nn 00 day, # 30 cap, 0 Refill(s) GI cocktail No Notes: Jonathan kayden 7-11 G.I. l 21:05: Cocktail = [place] 00 antacid with simethicon e 22.5 mL [...] Chloride 4-20 1,000 l 0.154 17:27: ml/hr, Zen MEQ/ML 00 Infuse Injectable Over: 1 Solution [...] Notes: Memoria 4-20 (Same l 16:00: as:MORPhin [place] 00 e Sulfate) Saline No Notes: Memoria Flush 0.9% 4-20 (Same as: l 15:18: BD [place] 00 Posiflush) Aspirin 81 Aspirin 81 Yes M.D. Uni vers MG TABS MG TABS ity of [place] [facility]ici ans Allopurinol Allopurinol Yes M.D. U nivers 300 MG Oral 300 MG Oral i ty of Tablet Tablet [place] [facility] Magnesium Magnesium Yes M.D. Unive rs 400 MG CAPS 400 MG CAPS i ty of [place] Physici ans Metoprolol Metoprolol Yes M.D. Uni vers Tartrate 50 Tartrate 50 i ty of MG Oral MG Oral [place] Tablet Tablet Physici ans Carvedilol Carvedilol Yes M.D. Uni vers 3.125 MG 3.125 MG ity of Oral Tablet Oral Tablet [place] Physici ans Tamsulosin Tamsulosin Yes M.D. Uni vers HCl 0.4 MG HCl 0.4 MG ity of CP24 CP24 [place] [facility]ici ans raNITIdine raNITIdine Yes M.D. Uni vers 150 Max 150 Max ity of Strength Strength [place] TABS TABS Physici ans Calcitriol Calcitriol Yes M.D. Uni vers CAPS CAPS ity of [place] Physici ans amLODIPine amLODIPine Yes M.D. Uni vers Besylate 10 Besylate 10 i ty of MG Oral MG Oral [place] Tablet Tablet Physici ans Atorvastati Atorvastati Yes M.D. U nivers n Calcium n Calcium ity o f 20 MG Oral 20 MG Oral [place] as Tablet Tablet Physici ans Cyclobenzap Cyclobenzap Yes M.D. U nivers rine HCl - rine HCl - ity of 10 MG Oral 10 MG Oral [place] as Tablet Tablet Physici ans Vital Signs Vital Name Observation Time Observation Value Comments Source Systolic blood 2019-10-24 136 mm[Hg] Location: [facility] 17:12:00 Position: [place] Physician s Sitting Diastolic blood 2019-10-24 71 mm[Hg] Location: [facility] 17:12:00 Position: [place] Physician s Sitting Body height 2019-10-24 74 [in_us] [facility] 17:12:00 [place] Physician s Weight 2019-10-24 250 [lb_av] [facility] 17:12:00 [place] Physician s Body mass index 2019-10-24 32.1 kg/m2 [place] o f (BMI) [Ratio] [facility]:12[facility] 2019-10-24 60 /min Location: [facility] 17:12:00 Brachial [place] Physician s Artery; Body temperature 2019-10-24 97.8 [degF] Method: [facility] 17:12:00 Temporal [place] Physician s Systolic (mm Hg) 2019-04-27 Memorial [...] 19:54:00 Temperature Oral 2019-04-01 97.6 F [facility] He rmann (F) 19:54:00 Height 2019-04-01 180.34 cm [...] 13:35:00 Temperature Oral 2018-07-23 97.7 F [facility] Ld rmann (F) 13:36:00 Weight 2018-07-23 Memorial Oni [...] 19:26:00 Temperature Oral 2018-07-07 97.7 F [facility] Ld rmann (F) 19:26:00 Heart Rate 2018-07-07 Memorial [...] 16:27:00 Temperature Oral 2018-06-23 97.6 F [facility] Ld rmann (F) 16:27:00 Height 2018-06-23 182 cm Memorial Oni n 16:27:00 Systolic (mm Hg) 2018-06-23 [facility] He rmann 16:27:00 Diastolic (mm Hg) 2018-06-23 [facility] H ermann 16:27:00 Weight 2018-04-06 Memorial Oni n 14:49:00 Height 2018-04-06 182 cm Memorial Oni n 14:49:00 Respitory Rate 2018-04-06 [facility] Herm nora 14:49:00 Heart Rate 2018-04-06 Memorial Oni n 14:49:00 BMI Calculated 2018-04-06 [facility] nora 14:49:00 Systolic (mm Hg) 2018-04-06 [facility] rmann 14:49:00 Diastolic (mm Hg) 2018-04-06 [facility] H ermann 14:49:00 Respitory Rate 2016-11-03 [facility] nora 21:15:00 Temperature Oral 2016-11-03 98.3 F [facility] Ld rmann (F) 21:15:00 Systolic (mm Hg) 2016-11-03 [...] 19:32:00 Temperature Oral 2016-11-03 98.2 F [facility] Ld rmann (F) 19:32:00 Heart Rate 2016-11-03 Memorial Oni n 19:32:00 Weight 2016-11-03 Memorial Oni n 15:02:00 BMI Calculated 2016-11-03 [facility] nora 15:02:00 Height 2016-11-03 187.96 cm Memorial Oni n 15:02:00 Temperature Oral 2016-11-03 98.0 F [facility] Ld rmann (F) 15:02:00 Systolic (mm Hg) 2015-09-10 [facility] rmann 21:29:00 Diastolic (mm Hg) 2015-09-10 [facility] H ermann 21:29:00 Temperature Oral 2015-09-10 98.1 F [facility] Ld rmann (F) 21:29:00 Heart Rate 2015-09-10 Memorial Oni n 21:29:00 Respitory Rate 2015-09-10 [facility] nora 21:29:00 Temperature Oral 2015-09-10 97.7 F Bebeto Jaffe rmann (F) 17:44:00 Respitory Rate 2015-09-10 [facility] nora 17:44:00 Heart Rate 2015-09-10 Memorial Oni n 17:44:00 Systolic (mm Hg) 2015-09-10 [facility] rmann 17:44:00 Diastolic (mm Hg) 2015-09-10 [facility] H ermann 17:44:00 Systolic (mm Hg) 2015-06-20 [facility]mann 20:50:00 Diastolic (mm Hg) 2015-06-20 [facility] H ermann 20:50:00 Respitory Rate 2015-06-20 [facility] nora 20:50:00 Temperature Oral 2015-06-20 98.6 F [facility] Ld rmann (F) 20:50:00 Systolic (mm Hg) 2015-06-20 [facility] rmann 18:31:00 Diastolic (mm Hg) 2015-06-20 [facility] H ermann 18:31:00 Respitory Rate 2015-06-20 [facility] nora 18:31:00 Respitory Rate 2015-06-20 [facility] nora 18:30:00 Systolic (mm Hg) 2015-06-20 [facility] rmann 17:24:00 Diastolic (mm Hg) 2015-06-20 [facility] H ermann 17:24:00 Temperature Oral 2015-06-20 97.7 F [facility] Ld rmann (F) 15:10:00 Weight 2015-06-20 Memorial Oni n 15:10:00 Heart Rate 2015-06-20 [facility] Oni n 15:10:00 Procedures Procedure Date / Time Performing Source Performed Clinician CT Abdomen/Pelvis w/wo 2019-10-24 00:00[facility] contrast [id number] Chest wo contrast [id number] 2019-10-24 [facility]:00[facility] (ie, 2019-04-27 16:16:00 [facility] [place] calibrated electronic equipment); with voiding pressure studies (ie, bladder voiding pressure) and urethral pressure profile studies (ie, urethral closure pressure profile), any technique Electromyography studies 2019-04-27 16:16:00 [facility] orial Zen (EMG) of anal or urethral sphincter, other than needle, any technique Cystourethroscopy (separate 2019-04-27 16:16:00 [facility] Injection procedure for 2019-04-27 16:16:00 Jonathan rial [place] cystography or voiding urethrocystography Voiding pressure studies, 2019-04-27 16:16:00 Ia morial Zen intra-abdominal (ie, rectal, gastric, intraperitoneal) (List separately in addition to code for primary procedure) Complex uroflowmetry (eg, 2019-04-27 16:[facility]00 [facility] [place] [facility]) Measurement of post-voiding 2019-04-27 16:15:00 [facility] and/or bladder capacity by ultrasound, non-imaging History of Abdominal aortic [facility] aneurysm repair Physicians AAA - Repair of abdominal Troy Mcclure aortic aneurysm using bifurcation graft Plan of Care Planned Activity Planned Date Details Comments Source Future Appointment 2020-04-23 08:30:00 [facility] Start End Encounter Admission Attending Care Care Encounter Source Date/Time Date/Time Type Type Clinicians Facility Department ID 2018-06-23 Inpatient [facility] [id number] [facility] 10:22:21 2019-10-24 2019-10-24 Appointmen SILVINO COSME [facility] Urology - [id number] [facility] 09:45:00 09:45:00 linda COSME M.D. [facility] [place] [facility] julian DUKES M.D. [facility] Physici ans 2019-05-09 2019-05-09 Outpatient [id number] 15:00:00 15:00:00 2019-04-27 2019-04-27 Outpatient Silvino Cosme [facility] [id number] 08:30:00 23:59:59 02 2019-04-27 2019-04-27 [facility] [id number] 08:00:00 23:59:59 00 2019-04-27 2019-04-27 [facility] [id number] 08:00:00 23:59:59 01 2019-03-16 2019-04-14 Outpatient Yehuda, [facility] [id number] 06:50:00 23:59:00 Arnaldo 05 Vikas 2019-04-01 2019-04-01 Outpatient Yehuda, [facility] [id number] 06:40:00 23:59:00 Arnaldo 06 Vikas 2019-04-01 2019-04-01 Outpatient [facility] CAR [id number] [facility] 06:40:00 06:40:00 2019-03-16 2019-03-16 Appointmen ORGANTRANSP UTP UTP [id number] [facility] 08:30:00 08:30:00 t; Paredesy o f [facility] [place] [employer], OP Physic i ans 2019-03-16 2019-03-16 Outpatient [facility] CAR [id number] [facility] 06:50:00 06:50:00 2018-08-20 2018-09-18 Outpatient Yehuda, [facility] [id number] 08:05:00 23:59:00 Arnaldo 03 Vikas 2018-08-20 2018-08-20 Outpatient [facility] CAR [id number] [facility] 08:05:00 08:05:00 2018-07-07 2018-08-05 Outpatient Yehuda, [facility] [id number] 09:33:00 23:59:00 Arnaldo 01 Vikas 2018-06-23 2018-07-22 [facility] [id number] 10:27:00 23:59:00 Ana 2018-07-07 2018-07-08 Outpatient MH91 MH91 [id number] 08:31:02 23:59:59 2018-07-07 2018-07-07 Outpatient [facility] PUL [id number] [facility] 09:33:00 09:33:00 2018-06-30 2018-06-30 Outpatient Ayden, MHOIH [facility] [id number] 11:19:00 23:59:00 Ana 2018-06-29 2018-06-29 Appointmen STEVEN GATES UTP [id number] [facility] 14:00:00 14:00:00 t; [place] [facility] [facility] [place] M.D. Physici jackie WELCH M.D. 2018-06-23 2018-06-23 Outpatient [facility] [id number] [facility] 10:27:00 10:27:00 2018-06-23 2018-06-23 Appointmen KODY DEJESUS UTP [id number] [facility] 10:00:00 10:00:00 t; ANA DEJESUS, Bibi Godoy M.D. 2018-06-08 2018-06-08 Appointmen KIRILL-GAVIN GATES UTP [id number] Univers 10:00:00 10:00:00 t; [place] [facility] M.D. Physici KRISTOFER, ans M.D. 2018-05-12 2018-05-12 Out[facility] D[facility] [id number] 08:51:00 23:59:00 Katey Olga Lidia Laly 2018-04-06 2018-05-05 Outpatient Ankur [facility] [id number] 08:35:00 23:59:00 Raulito Haque 2017-09-23 2017-09-23 Outpatient Monet, MHOIP MHOIP [id number] 08:00:00 08:00:00 Lucila 02 [place] 2016-11-03 2016-11-03 Outpatient Iona, [facility]PL MHPL [id number] 10:01:00 16:46:00 Damion 03 2015-09-10 2015-09-10 Outpatient Gemma, [facility] [id number] 12:33:00 17:04:00 Brigido Manning 2015-06-20 2015-06-20 Outpatient Norberto, MHPL MHPL [id number] 10:02:00 17:07:00 Geraldo 01 Scott 2014-06-05 2014-06-05 Outpatient MONIKA Lugo MHIE [id number] 10:20:00 23:59:00 Segundo Puga Results Test Description Test Time Test Comments Results Result Comments Source URINE AND STOOL 2019-04-27 [facility] 14:05:00 *NA*(04/27/19 [place] 8:05 AM) URINE AND STOOL 2019-04-27 [facility] 14:05:00 *NA*(04/27/19 [place] 8:05 AM) URINE AND STOOL 2019-04-27 14:05:00 Test Item Value Reference Range Interpretation Comme nts POC UA SG (test code = POC UA SG) 1.015 1 [facility] KACHC0834-27-40 14:05:00 Test Item Value Reference Range Interpretation Comments POC UA pH (test code = POC UA pH) 6.0 1 5.0-8.0 [facility] NZJAM2548-63-46 14:05:00Negative *NA*(04/27/19 8:05 AM) [facility] YZRTQ0675-64-46 14:05:00Trace *ABN*(04/27/19 8:05 AM) [facility] HMQNE9358-96-09 14:05:000.2[facility] LPAGV3872-81-01 14:05:00Negative *NA*(04/27/19 8:05 AM)[facility] ROAHG5769-68-61 14:05:00Negative *NA*(04/27/19 8:05 AM)[facility]annANEMIA ARGMJ5901-38-79 13:10:06460Dypymdmz HermannANEMIA UNOLR0386-14-66 13:10:0046 [facility] FQTOF8518-38-74 13:10:64412Vjxsicbc HermannANEMIA STUDY 2019-03-16 13:10:43106Vdvouabz HermannANEMIA CDJUU4166-98-23 13:10:0015[facility]annCHEM MLHON8805-41-76 13:10:0074[facility]annCHEM ZWMVY7530-99-10 13:10:0043[facility]annCHEM UNWET0234-56-60 13:10:004.40[facility]annCHEM PDRED7448-80-72 13:10:62045Vueghmyp HermannCHEM JFFES4657-91-91 13:10:003.9 [facility]annCHE[facility] JNSIK2303-88-10 13:10:01237Wjfkkidr HermannCHEM PANEL 2019-03-16 13:10:0026[facility]annCHEM ZOBPZ5492-78-94 13:10:008.5[facility]annCHEM NQZIG1687-86-95 13:10:007.5[facility]annCHEM PNVOP9601-76-15 13:10:003.4[facility]annCHEM ZKDHF5816-55-84 13:10:0016[facility]annCHEM KJXCS1854-17-75 13:10:0011[facility]annCHEM DJUXP4728-40-31 13:10:0068 [facility]annCHE[facility] HBRAF1392-60-90 13:10:000.3[facility] HermannCHEM PANEL 2019-03-16 13:10:0011.9[facility]annCHEM XBJZX5347-96-11 13:10:00 Test Item Value Reference Range Interpretation Comments B/C Ratio (test code = B/C Ratio) 10 1 6-25 [facility] VSUYK3709-91-59 13:10:004.1[facility]annCHEM PANEL 2019-03-16 13:10:00 Test Item Value Reference Range Interpretation Comments A/G Ratio (test code = A/G Ratio) 0.8 1 0.7-1.6 [facility]CHE[facility] SXWRE3387-76-78 13:10:0013[facility]annCHEM PANEL 2019-03-16 13:10:001.2[facility]annCHE[facility] XWORP5195-22-51 13:10:003.9[facility]annCHEM NJUKQ1275-26-08 13:10:007.1[facility]annCHEM NZCLW0051-29-76 13:10:0042.0[facility]annCHEM RDVWK9812-99-53 13:10:75535Usevxayw HermannCHEM VWHOP8344-79-39 13:10:004.39[facility]annCHEM JOEZZ4734-98-87 13:10:0013 [facility] ChildrenLvuqiyqLLXACVDMBY4381-60-06 13:10:00 Test Item Value Reference Range Interpretation Comments PT (test code = PT) 12.8 s 12.0-14.7 [facility] ChildrenPheiljsOKZXALKEHK9675-44-31 13:10:00 Test Item Value Reference Range Interpretation Comments INR (test code = INR) 0.96 1 0.85-1.17 [facility] ChildrenXkrehnlJASZYYICAE8184-94-99 13:10:00 Test Item Value Reference Range Interpretation Comments PTT (test code = PTT) 33.5 s 22.9-35.8 [facility] LgjaayrSWOEHBEXQA8300-49-96 13:10:008.5[facility] HermannHEMATOLOGY 2019-03-16 13:10:004.31[facility] UxgifahYRXBVJAHEY5120-30-16 13:10:0012.6[facility] NivonasNYTRVDCUNP2434-13-17 13:10:0039.5[facility] FbywjudLXWDHCHAKM5862-22-67 13:10:0091.6[facility] YmajvzoYDPHYVUXGR7674-40-86 13:10:00 Test Item Value Reference Range Interpretation Comments MCH (test code = MCH) 29.3 pg 27.0-31.0 [facility] YrojjliNSRCNKEJZL0999-85-27 13:10:0032.0[facility] HermannHEMATOLOGY 2019-03-16 13:10:0015.5[facility] EjoxhfnDYKAEMNNYA1656-44-95 13:10:43868Ojlbrowu QxznumaEQKWAZXCZA3731-22-92 13:10:009.0[facility] LtwphyyERRPZNJYSC2828-61-51 13:10:75048Evgjmxkz LcfboyfPSSKLZABIL2952-12-37 13:10:00Negative (03/16/19 7:10 AM)[facility] UsuilvoNHIAOMLRTN9696-57-57 13:10:00 Test Item Value Reference Range Interpretation Comments dRVV Ratio (test code = dRVV Ratio) 1.26 1 [facility] PjpcxjqXFYOTJDTFT9075-70-38 13:10:00Negative (03/16/19 7:10 AM)[facility] NmjmvfjXRMKIQKVOS7417-99-57 13:10:00Negative (03/16/19 7:10 AM)[facility] OEVCBXLZBK4705-06-30 13:10:79150Ghzdmtrj OehlbxcTVCSHNOTBP4177-50-10 13:10:19567 [facility] DqdocxtCYYEWOXTQC1226-58-89 13:10:0058.7[facility]annHEMATOLOGY 2019-03-16 13:10:0030.5[facility] TzmuzfjJDUBAIOMUB3722-92-02 13:10:008.0[facility] JknxgkrYOKXUXLGBH8184-05-36 13:10:002.2[facility] PzkngmnNIJBINIHQL4763-09-82 13:10:000.6[facility] KgjxfntBLIYRHRBNS2253-03-87 13:10:005.0[facility] IQEBPNLSWL1538-69-13 13:10:002.6[facility] XadhsbwLTNEKSBEWI3652-85-15 13:10:000.7 [facility] NulpoecHZBGMWRFDC4876-48-29 13:10:000.2[facility] HermannIMMUNOLOGY 2019-03-16 13:10:003.70[facility] IuiswuxVFEIRWHHMG3697-72-94 13:10:00<0.5 [facility] LozfnmlGGNPTSQRIZ4857-88-68 13:10:00<1.6[facility] HermannIMMUNOLOGY 2019-03-16 13:10:000.8[facility] UrjdycaPGTDPESPGI1165-34-13 13:10:0016.5[facility] VlwramlMMINFOUNQY3283-69-11 13:10:0051.0[facility] VfikanhTPQIVKSSHJ5109-41-09 13:10:008.6[facility] YiunlbhBFMJLNNYEX3961-89-38 13:10:0014.6[facility] [place] BLAAGVAYDQ7770-24-65 13:10:0012.4[facility] VwoejdjMIZHHZYWBB4283-71-47 13:10:00 13.4[facility] MegkzcjEDXOSEAGJH8825-33-90 13:10:003.83[facility] HermannIMMUNOLOGY 2019-03-16 13:10:000.65[facility] YyaxlwkCHYVIPZLEQ5523-38-97 13:10:001.10[facility] RdmpiwpEQBPREMRFD6112-69-52 13:10:000.93[facility] GjalgliWYACJFMXFU4547-11-55 13:10:001.01[facility] MvytgeeKPCUYMCNRE5537-63-84 13:10:007.5[facility] SHUQZDEICI3400-26-94 13:10:28243.41[facility] ZtnospnLGYVZDZGPM2159-61-81 13:10:00 40.85[facility] RegaueoOTBPBQDLZC9527-55-99 13:10:002.70[facility] HermannIMMUNOLOGY 2019-03-16 13:10:00Reactive *ABN*(03/16/19 7:10 AM)[facility]annIMMUNOLOGY 2019-03-16 13:10:00>8.0[facility] PhphfioLFMKHEJFGA2318-09-87 13:10:00Negative *NA*(03/16/19 7:10 AM)[facility] SmmthxmWXRBQOXJZG1968-02-89 13:10:00Positive *NA*(03/16/19 7:10 AM)[facility] XuvrhdsWIQJAONOJU7091-34-27 13:10:00<3.1 [facility] JdtqctiOYNKLWVNZM0466-93-76 13:10:00Negative *NA*(03/16/19 7:10 AM) [facility] KvlcasnLBAQWVHSPS0846-06-18 13:10:00Negative *NA*(03/16/19 7:10 AM) [facility] NdikczeOIKPMTIHIH7255-02-71 13:10:00Negative *NA*(03/16/19 7:10 AM) [facility] RkmhjdiDPKQUWHRGL1768-33-61 13:10:00<0.2[facility] HermannIMMUNOLOGY 2019-03-16 13:10:00>8.0[facility] NndsperSUBHWVGDYK8746-71-23 13:10:00Negative (03/16/19 7:10 AM)[facility] WzquzasKPDPRGZQHZ9454-37-67 13:10:00Non-Reactive *NA*(03/16/19 7:10 AM)[facility] MitntzbEARKLOBJJL0611-70-62 13:10:00<0.2 [facility] BfsszayUMRCMBCXLT5789-05-54 13:10:005.1[facility] HermannIMMUNOLOGY 2019-03-16 13:10:00<0.2[facility] SsipqllLHHKAIEHOO3975-60-49 13:10:002.0 [facility] WqdqtixGYQSSG6713-43-52 13:10:84340Fpwkdpjr EzdyzatGYYKTX1864-11-28 13:10:39691Nnfasggp LvdcrdmURAIWC1555-05-83 13:10:0040[facility] HermannLIPIDS 2019-03-16 13:10:00 Test Item Value Reference Range Interpretation Comments CHD Risk (test code = CHD Risk) 4.58 1 4.00-7.30 [facility] CoyugkpDRARSD9841-71-58 13:10:13054Gysxgjij OvrnlsgMYQKAR9775-69-50 13:10:00 Test Item Value Reference Range Interpretation Comments VLDL (test code = VLDL) 28 1 [facility] HermannPARATHYROID PHYFRHR7859-42-02 13:10:53347.6[facility] [place] SPECIAL UUTCNSJKV1030-65-84 13:10:006.1[facility] HermannSPECIAL CHEMISTRY 2019-03-16 13:10:001.34[facility] PSJDF2882-67-60 13:10:001 [facility] SZXUY6448-80-05 13:10:001[facility] QEAXG4788-89-13 13:10:00Yellow *NA*(03/16/19 7:10 AM)[facility] NGXCY3830-99-95 13:10:00Clear (03/16/19 7:10 AM)[facility] STOOL 2019-03-16 13:10:00 Test Item Value Reference Range Interpretation Comments UA Spec Grav (test code = UA Spec 1.010 1 Grav) [facility] NYVQZ2233-05-38 13:10:00 Test Item Value Reference Range Interpretation Comments UA pH (test code = UA pH) 6.0 1 5.0-8.0 [facility] GFHAU2637-12-62 13:10:00Negative *NA*(03/16/19 7:10 AM) [facility] LHKCE6392-08-23 13:10:00Negative *NA*(03/16/19 7:10 AM) [facility] ISRMM1991-34-88 13:10:00Trace *ABN*(03/16/19 7:10 AM) [facility] QPFIY4915-90-30 13:10:000.2[facility] SBROS1184-87-98 13:10:00Negative (03/16/19 7:10 AM)[facility] UEPMQ5813-42-64 13:10:00Negative (03/16/19 7:10 AM)[facility] MMRVY0299-83-08 13:10:00None Seen (03/16/19 7:10 AM)[facility] CHEM 2019-03-16 13:10:0074.20[facility] HLJA2996-09-84 13:10:61104.0 [facility] XRTG7152-61-37 13:10:308144.2[facility] CHEM 2019-03-16 13:10:0074.20[facility] RAIS6400-57-50 13:10:21272.5 [facility] KILY7455-61-21 13:10:00 Test Item Value Reference Range Interpretation Comments U Prot/Creat (test code = U 2.01 1 Prot/Creat) [facility] LPQB5348-45-19 13:10:0074.20[facility] CHEM 2019-03-16 13:10:09216.0[facility] ZNNU8875-27-95 13:10:459287.2 [facility] LryuvduHTHUUXXAXA6407-17-92 16:49:423174Ygqsaicr HermannIMMUNOLOGY 2018-06-29 16:49:963896Uvbqjwvf FmqjopuGVUGTBTNRR3978-37-62 16:49:0053[facility] HermannCHEM IVKBW4985-92-14 17:46:72045Bmdwacqr HermannCHEM KKXXT1631-89-63 17:46:009.6[facility] EczfplyBZXMFTSDMZ1625-50-94 17:46:0032.9[facility] BGBGKGLMXO1150-17-27 17:46:66771Vgucutnk VbjhtecLRBLXXPZQF0498-20-93 17:46:00 16.3[facility] KsnkxajQMNMEOSLTC6869-86-45 17:46:009.1[facility] HermannHEMATOLOGY 2018-06-23 17:46:0013.2[facility] YesgzbgBANCIMWQOO6350-84-65 17:46:0040.2[facility] VelysoyTIVRJXVXGQ7233-46-43 17:46:0087.8[facility] TnebpltUUZESSIAOV6906-07-80 17:46:00 Test Item Value Reference Range Interpretation Comments MCH (test code = MCH) 28.9 pg 27.0-31.0 [facility] XbdqusmLJTDFLLTPB4674-43-02 17:46:009.9[facility] HermannHEMATOLOGY 2018-06-23 17:46:004.58[facility] OwexpcpPHSNQIVTRI0910-06-66 17:46:000.2[facility] AkiwljbCWHMUAHHHL8334-28-50 17:46:000.1[facility] UgjrlbdNWGQCEGJHS2230-36-40 17:46:000.7[facility] HfvauufALWJILQMZR3523-35-36 17:46:006.6[facility] [place] RTWIJRKOFP5781-18-45 17:46:002.4[facility] BwnprqxPEHQDFMAEN2130-95-14 17:46:000.6 [facility] PmkgzqkEIHUXNDWWS4247-19-03 17:46:0066.7[facility]annHEMATOLOGY 2018-06-23 17:46:006.3[facility] FehpkhsPIKCXJMAKS4022-80-41 17:46:0024.3[facility] NdthqrhXVRQPBUXBN6751-62-34 17:46:002.0[facility] ZgdkduuJHZDHJGLAX0146-63-25 17:46:002.17[facility] QekvslgHPAYCGCJHT9820-61-24 17:46:0092.69[facility] BLKTQTEUQU3793-35-12 17:46:0042.69[facility] HermannANEMIA UWZCY0890-91-43 14:50:78218Svfidcnn HermannANEMIA YPVXB6447-30-42 14:50:08000Pwttyevn [place] ANEMIA BUHJC6602-09-86 14:50:0015[facility] HermannANEMIA QGFXB5525-42-47 14:50:00 46[facility] HermannANEMIA JWNUP1291-05-03 14:50:56662Rpayihgx HermannCHEM PANEL 2018-04-06 14:50:0036.8[facility] HermannCHEM DPYNW7506-29-57 14:50:007.3[facility] HermannCHEM GKTKG4316-74-26 14:50:003.4[facility] HermannCHEM JQDCP0783-24-74 14:50:002.0[facility] HermannCHEM CHEDV1142-70-38 14:50:008.17[facility]annCHEM XTBAS0335-70-28 14:50:00 Test Item Value Reference Range Interpretation Comments A/G Ratio (test code = A/G Ratio) 0.9 1 0.7-1.6 [facility]annCHEM QCAZC4372-66-43 14:50:00 Test Item Value Reference Range Interpretation Comments B/C Ratio (test code = B/C Ratio) 9 1 6-25 [facility]annCHE[facility] KWJKH1854-74-43 14:50:0012.4[facility] HermannCHEM PANEL 2018-04-06 14:50:004.2[facility]annCHEM EAOYY2529-57-95 14:50:0014[facility]annCHEM MTPEJ7099-99-76 14:50:0012[facility]annCHEM CLSKA6685-95-44 14:50:0070[facility]annCHEM ESAGA9648-05-74 14:50:008[facility]annCHEM QIQMM0072-86-68 14:50:003.7[facility]annCHEM DZELA7982-97-81 14:50:000.3 [facility]annCHEM VACUQ3103-79-70 14:50:0083[facility]annCHEM PANEL 2018-04-06 14:50:16281Whyptvuz HermannCHEM DRGNH3687-69-35 14:50:0035[facility]annCHEM GVTRZ2851-94-69 14:50:004.10[facility]annCHEM XQHXZ6988-16-25 14:50:0025[facility]annCHEM DTXAN6121-96-47 14:50:009.7[facility]annCHEM GAUVS0291-71-61 14:50:004.4[facility]annCHEM LZZSH7614-65-01 14:50:11486 [facility]annCHE[facility] LUCLL0754-13-23 14:50:007.9[facility]annHEMATOLOGY 2018-04-06 14:50:000.1[facility] SfnestgXGFEDDPOLJ5455-54-02 14:50:0068.2[facility] GuvlhpaRRKJJFDBOC2182-99-03 14:50:0020.5[facility] AsohrioFGJFZSVCUQ1212-55-04 14:50:006.0[facility] OldwfglRRYDXAALPO7019-47-52 14:50:000.6[facility] [place] HGHXMOSQET4036-43-66 14:50:001.8[facility] TtcnzpkKFYQCDLAQI1189-88-67 14:50:003.2 [facility] QtsmdgvHCIAZMPSWG0771-95-88 14:50:007.5[facility] HermannHEMATOLOGY 2018-04-06 14:50:000.3[facility] KrtcofaEKLBVTAPIM1637-03-00 14:50:000.7[facility] AfowcdmKKDDFBXRJS2305-73-72 14:50:0013.3[facility] ReysfruWPLLEMMHSL3434-72-62 14:50:0041.1[facility] OnnoprrHORHVCODAS8791-42-61 14:50:0088.4[facility] BDFGEAMRTO4875-48-82 14:50:00 Test Item Value Reference Range Interpretation Comments MCH (test code = MCH) 28.7 pg 27.0-31.0 [facility] LnqhiehQGSOJMKATI7276-46-78 14:50:004.65[facility] HermannHEMATOLOGY 2018-04-06 14:50:0014.6[facility] ZeouywwZTKVASWEJU3591-25-24 14:50:0032.5[facility] IfxjztmZUYXWEKVVI2788-04-70 14:50:14929Kdwhwprn NhnzxroGFNFHWWCJB7420-45-03 14:50:009.0[facility] OknycwiZMZZFWBWYN4445-40-35 14:50:008.8[facility] [place] ACSLRXMFIV0975-80-70 14:50:00 Test Item Value Reference Range Interpretation Comments INR (test code = INR) 0.96 1 0.85-1.17 [facility] JcfzrpcVZYPQVXEXU9216-06-31 14:50:00 Test Item Value Reference Range Interpretation Comments PT (test code = PT) 12.6 s 12.0-14.7 [facility] AoigzyjOSVAQNMAJA9031-80-47 14:50:00 Test Item Value Reference Range Interpretation Comments PTT (test code = PTT) 34.7 s 22.9-35.8 [facility] ScswuhlPBIPSHDCGT4117-61-96 14:50:00Non-Reactive *NA*(04/06/18 8:50 AM) [facility] QvxnkkdQROYUNHPWS5272-31-27 14:50:00<0.91[facility] HermannIMMUNOLOGY 2018-04-06 14:50:00<0.2[facility] VwcwbfwVLFINXWLBH2266-52-24 14:50:00Negative *NA*(04/06/18 8:50 AM)[facility] RtpeyflYZXEZEIFGE0328-69-79 14:50:00>8.0[facility] ZvfjxntFDQKJYNKYF5526-99-60 14:50:00<0.2[facility] WzileytRIVTUEUPCH9129-99-78 14:50:0066.41[facility] MgrfgtxBOJIVGDMXE6314-81-07 14:50:001.66[facility] BCGRPSLTIB0250-79-26 14:50:95811.34[facility] MffnwkzGWCQMJSVBQ8553-91-86 14:50:00 Negative *NA*(04/06/18 8:50 AM)[facility] DqnknuaSQAVBDWKNN1393-16-48 14:50:00 Negative (04/06/18 8:50 AM)[facility] MvznqviRBSSUYUYSL3672-79-17 14:50:000.99 [facility] YxsdncyTCWJBTVPDW4931-59-39 14:50:001.28[facility] HermannIMMUNOLOGY 2018-04-06 14:50:007.9[facility] HbmvjbcPALIMQQGEM2739-65-02 14:50:004.25[facility] LezkxkbCODUNIJTPC6001-82-73 14:50:0016.2[facility] NrfmpbwWUZDAIJOEY6839-55-37 14:50:000.43[facility] UehxrcfXRXVHHXVUT1350-41-61 14:50:000.96[facility] UBZDWAPFWW6594-45-06 14:50:005.4[facility] FlsuqnlIFCCHXXVPV1574-83-67 14:50:00 53.8[facility] VcjpuueXXMPYGMQUS4138-04-85 14:50:0012.5[facility] HermannIMMUNOLOGY 2018-04-06 14:50:0012.1[facility] SocmywlLYNPUHLCZI0406-06-43 14:50:00<0.2 [facility] ZgdziolLYXOJXQQHI1821-87-91 14:50:00>8.0[facility] HermannIMMUNOLOGY 2018-04-06 14:50:005.2[facility] KilebkeTNQZAXRDCC3524-78-63 14:50:00Negative *NA*(04/06/18 8:50 AM)[facility] TnznppcSASLXEJFPR9329-89-68 14:50:00Negative *NA*(04/06/18 8:50 AM)[facility] GknysgvYDDLTDTFHU1092-61-74 14:50:00Reactive *ABN*(04/06/18 8:50 AM)[facility] WujmzmqRJLGTXITJI1572-37-43 14:50:000.3[facility] ZuygtzqZKIOFR9016-48-90 14:50:00 Test Item Value Reference Range Interpretation Comments VLDL (test code = VLDL) 36 1 [facility] GnhemsuPYGBBX1162-71-82 14:50:77638Ervxyqkr ZqidgfgHGGEPL6029-14-28 14:50:90523Vydgzxal PkkxlwaUDKMDD0081-19-76 14:50:92422Hamgdauc HermannLIPIDS 2018-04-06 14:50:0031[facility] JnrufzfPGTBAQ8955-37-19 14:50:00 Test Item Value Reference Range Interpretation Comments CHD Risk (test code = CHD Risk) 6.42 1 4.00-7.30 [facility] EEBCVJIDSE4206-29-93 14:50:00<1.3[facility] MOLECULAR CMBKXAPNRI8732-30-43 14:50:00Not Detected (04/06/18 8:50 AM)[facility]annPARATHYROID RUZKTNH3734-43-21 14:50:69601.7[facility]annSPECIAL ZQWTCFSOY5093-54-46 14:50:006.5[facility]annSPECIAL LKKBZFRXD0594-87-95 14:50:001.00[facility] ZBINL2430-66-57 14:50:00Clear (04/06/18 8:50 AM)[facility] NNAIT5550-67-60 14:50:00Yellow *NA*(04/06/18 8:50 AM)[facility] SQMZY6865-94-22 14:50:00 Test Item Value Reference Range Interpretation Comments UA pH (test code = UA pH) 5.5 1 5.0-8.0 [facility] [id number] 14:50:00 Test Item Value Reference Range Interpretation Comments UA Spec Grav (test code = UA Spec 1.009 1 Grav) [facility] YWDVG3909-43-12 14:50:001[facility] LOVST5941-57-48 14:50:00Negative (04/06/18 8:50 AM)[facility] STOOL 2018-04-06 14:50:00Negative (04/06/18 8:50 AM)[facility] STOOL 2018-04-06 14:50:00Trace *ABN*(04/06/18 8:50 AM)[facility] STOOL 2018-04-06 14:50:00Negative *NA*(04/06/18 8:50 AM)[facility] CHEM 2018-04-06 14:50:17163.0[facility] UPZN8858-16-10 14:50:64931.7 [facility] HTNB8870-84-63 14:50:00 Test Item Value Reference Range Interpretation Comments U Prot/Creat (test code = U 0.78 1 Prot/Creat) [facility] PRGM3048-01-42 14:50:18674.00[facility] UKVQL8283-28-42 16:40:000.2[facility] HUEZE2511-33-94 16:40:00 Negative (11/03/16 11:40 AM)[facility] XTQJJ6519-07-74 16:40:00 Negative (11/03/16 11:40 AM)[facility] DVSPH2059-66-27 16:40:00 Test Item Value Reference Range Interpretation Comments UA pH (test code = UA pH) 5.5 1 5.0-8.0 [facility] PRQPS4916-41-31 16:40:00Negative (11/03/16 11:40 AM) [facility] BQGNC2048-60-02 16:40:00Moderate *ABN*(11/03/16 11:40 AM)[facility] GNLUL8841-42-13 16:40:00Negative *NA*(11/03/16 11:40 AM)[facility] MGGXU7615-68-69 16:40:00Negative *NA*(11/03/16 11:40 AM)[facility] LQBYC2023-02-28 16:40:00Yellow *NA*(11/03/16 11:40 AM)[facility] OFHKU9141-17-25 16:40:00 Test Item Value Reference Range Interpretation Comments UA Spec Grav (test code = UA Spec 1.020 1 Grav) [facility] SFZTS7317-43-87 16:40:00Clear (11/03/16 11:40 AM) [facility] AELRQ5235-74-79 16:40:000-2 (11/03/16 11:40 AM)[facility]annCARDIAC UOEIVNQ7061-06-38 15:41:00<0.02[facility]annCHEM PANEL 2016-11-03 15:41:001.5[facility]annCHEM DXDHL1854-88-95 15:41:002.0[facility]annCHEM OERRE3760-95-28 15:41:0023[facility]annCHEM TISBU4352-14-77 15:41:0011[facility]annCHEM VZOFX1611-87-48 15:41:000.5[facility]annCHEM QAIHY5880-99-51 15:41:008.3[facility]annCHEM MMUMM7862-23-97 15:41:0022 [facility]annCHE[facility] EZKOW3934-39-78 15:41:008.7[facility]annCHEM PANEL 2016-11-03 15:41:003.9[facility]annCHEM JAEUT6730-96-25 15:41:80949Dnusspqa HermannCHEM YLJXM1718-48-22 15:41:002.82[facility]annCHEM LTGQO8354-92-99 15:41:14462Iirgaafr HermannCHEM BORFS5362-28-84 15:41:0030[facility]annCHEM AKAMC4563-68-66 15:41:24202Cpzscogl HermannCHEM RCQCS6915-43-45 15:41:003.6 [facility]annCHEM CHUFL0876-88-48 15:41:0073[facility]annCHEM PANEL 2016-11-03 15:41:0016[facility]annCHEM JDBTJ3414-83-31 15:41:000.8[facility]annCHEM ZQNLS5631-80-66 15:41:0011[facility]annCHEM GCQLH5958-03-55 15:41:004.7[facility]annCHEM DCYUV3456-83-85 15:41:0012.9[facility]annCHEM MNLYD2123-60-04 15:41:94772Gjfikemb BoxdklrYUTBCHBQTT0178-33-36 15:41:0075.6 [facility] CzrgknyZGIYRHGLRA6910-20-75 15:41:000.1[facility]annHEMATOLOGY 2016-11-03 15:41:000.9[facility] AbejfneILTLGDYXBI7334-76-38 15:41:000.2[facility] CwnjgfjJWBQISWNRA1406-57-39 15:41:001.8[facility] KuusixqOVZGZNHDQZ3196-32-14 15:41:000.6[facility] ClxdwljDNSYODXZUM3002-86-83 15:41:0014.5[facility] XXGVZOBCLM5358-17-97 15:41:007.5[facility] JcpirmjNFYKSTXBSU5410-92-49 15:41:009.4 [facility] VwydhxlMITDCWDZPU4418-44-72 15:41:001.8[facility]annHEMATOLOGY 2016-11-03 15:41:0088.5[facility] TuotoqgNAIYZLPFOK4798-29-85 15:41:00 Test Item Value Reference Range Interpretation Comments MCH (test code = MCH) 29.3 pg 27.0-31.0 [facility] DtvfiyzMXACKDIBCE6427-06-46 15:41:0040.7[facility]annHEMATOLOGY 2016-11-03 15:41:0033.2[facility] MiudoawRSODWQTZJM0995-98-09 15:41:0015.1[facility] NulsldxMVLESCNSSP3986-73-19 15:41:0013.5[facility] FptkcigRMUIUGFXIR6942-98-32 15:41:0012.5[facility] FajgcqbQJOBGLJPGS3997-80-33 15:41:004.60[facility] RZXVLPSZLH9361-18-19 15:41:008.7[facility] IhwmnucORBXLEZDFJ3068-23-65 15:41:74992 [facility]annCHEM VGKGR4616-11-37 18:55:0013[facility] HermannCHEM PANEL 2015-09-10 18:55:003.9[facility]annCHEM SKVMY2257-67-03 18:55:000.9[facility]annCHEM ETAJK4528-25-67 18:55:008.6[facility]annCHEM XGRNA6627-47-39 18:55:0027[facility]annCHEM NZKTW3554-99-71 18:55:83957Opcidbks HermannCHEM NEETC6976-48-92 18:55:004.6[facility]annCHEM LQJIP2211-50-93 18:55:002.45 [facility]annCHEM BFGVU1798-47-79 18:55:07784Sbfkxkyt HermannCHEM PANEL 2015-09-10 18:55:0028[facility]annCHEM OJJQB2484-15-60 18:55:003.5[facility]annCHEM MHPHB3382-24-63 18:55:0060[facility]annCHEM LTAHI5454-10-94 18:55:0031[facility]annCHEM DSJUE8109-84-36 18:55:0081[facility]annCHEM PMLRJ6419-11-82 18:55:000.4[facility]annCHEM QXCEC3730-27-18 18:55:007.4 [facility]annCHEM MVALS7588-25-39 18:55:008.5[facility]annCHEM PANEL 2015-09-10 18:55:0015[facility] HermannCHEM MSEJE7174-87-17 18:55:0012[facility] BojzgtjDHZDKMCAGX6079-94-98 18:55:002.6[facility] KzymcygCLGSAQPNNR8375-26-31 18:55:0023.1[facility] WbinzdwBEPOKTKCZL4503-69-19 18:55:009.4[facility] OIKZXPAOQQ9870-42-54 18:55:000.2[facility] ZlzylccDROVBEDDIT4811-83-87 18:55:000.1 [facility] VeapglbWEOWYYMELP8334-15-15 18:55:000.8[facility]annHEMATOLOGY 2015-09-10 18:55:001.8[facility] WlhwokrFGTOLLGHFF7474-78-05 18:55:000.7[facility] IxlqozxELLRZSKGYF7745-18-25 18:55:005.0[facility] SdhyjhsUKOLOMUMAG3623-41-36 18:55:0064.1[facility] CfmshwlUAXUNDBHYT1202-52-34 18:55:98488Slsvadix [place] BJCGNRYIBF6732-61-56 18:55:008.5[facility] TdobubqFPWFQVKUFY4874-27-01 18:55:00 17.0[facility] ZazxfvoITOQIWQLUP5215-35-95 18:55:0032.5[facility]annHEMATOLOGY 2015-09-10 18:55:0089.4[facility] EmpfllaNSQHHOGANP1627-22-18 18:55:004.19[facility] RenzsitGXFZFNYMDE4719-11-37 18:55:00 Test Item Value Reference Range Interpretation Comments MCH (test code = MCH) 29.1 pg 27.0-31.0 [facility] DfcksjnVJCAFEXAFW0789-17-91 18:55:0037.5[facility]annHEMATOLOGY 2015-09-10 18:55:0012.2[facility] SebawyzGTBAUPTOES2153-49-61 18:55:007.8[facility] XhqpgyxDUQVT7149-41-50 18:55:00Negative (09/10/15 1:55 PM)[facility] TPMOZ9276-98-68 16:22:00Negative (06/20/15 11:22 AM)[facility] SFVYT1097-69-02 16:22:000.2[facility] SOAJK3221-61-55 16:22:00 Negative (06/20/15 11:22 AM)[facility] IEOVP2584-90-70 16:22:00 Negative (06/20/15 11:22 AM)[facility] DAKRI3860-73-88 16:22:00 Negative (06/20/15 11:22 AM)[facility] GJFVY3038-28-30 16:22:00 Negative *NA*(06/20/15 11:22 AM)[facility] FBORS4358-72-49 16:22:00Negative *NA*(06/20/15 11:22 AM)[facility] BZEIR5614-79-60 16:22:00Yellow *NA*(06/20/15 11:22 AM)[facility] RRUBW0359-47-59 16:22:00Clear (06/20/15 11:22 AM)[facility] KLSEY5214-07-04 16:22:00 Test Item Value Reference Range Interpretation Comments UA pH (test code = UA pH) 6.0 1 5.0-8.0 [facility] [id number] 16:22:00 Test Item Value Reference Range Interpretation Comments UA Spec Grav (test code = UA Spec 1.010 1 Grav) [facility]annCARDIAC LVRMQYE4203-74-05 15:37:00<1.7[facility]annCARDIAC DFBNKVW7475-34-80 15:37:0029[facility]annCARDIAC EYPNIRJ2261-23-87 15:37:00 <0.02[facility]annCARDIAC LNWDOEM1571-41-08 15:37:00<0.5[facility] HermannCHEM YOJXK8344-40-35 15:37:0027[facility]annCHEM MSUGT8541-80-31 15:37:000.7[facility]annCHEM RIBCV1973-36-29 15:37:0012[facility]annCHEM STFHZ3845-03-91 15:37:004.5[facility]annCHEM OUNIT4751-17-96 15:37:0012 [facility]annCHEM CRRTR5205-74-65 15:37:0012.2[facility]annCHEM PANEL 2015-06-20 15:37:67779Lcmtkjpr HermannCHEM JIQBH0789-41-29 15:37:004.2[facility]annCHEM QUFFQ9749-21-41 15:37:0029[facility]annCHEM JBLDX8003-27-40 15:37:002.47[facility]annCHEM FUHQJ6589-17-49 15:37:0023[facility]annCHEM ESWUU9396-08-54 15:37:007.8[facility]annCHEM CGQRO2451-70-42 15:37:009.0 [facility]annCHEM COPXO1493-04-29 15:37:000.5[facility]annCHEM PANEL 2015-06-20 15:37:0028[facility] HermannCHEM IAMDC1835-29-42 15:37:93205Stebkanh HermannCHEM QOVIS5553-37-47 15:37:47319Yyezdiyj HermannCHEM UBPYQ9206-57-86 15:37:0057[facility]annCHEM EDOID4653-10-25 15:37:003.3[facility] Zne CTXGQQBRDG8862-39-26 15:37:000.6[facility] NumtosdODQWNLTJXC7320-94-08 15:37:00 13.7[facility] FscoqecBVVSCUXAOW6077-42-27 15:37:001.4[facility]annHEMATOLOGY 2015-06-20 15:37:0010.4[facility] AvzduluCKXNVVLWDS8850-27-63 15:37:000.1[facility] FqbattpVCQKNUTMLK6994-02-85 15:37:000.2[facility] JpjxjzhNEFVUQKRFX6255-71-72 15:37:008.3[facility] IbfxkgzLSLDRRQCXM8849-72-91 15:37:001.5[facility] [place] ONJIEBFCPV1515-23-58 15:37:001.2[facility] KsskvhoZQUOIZNLLN8859-93-50 15:37:00 73.9[facility] XmnesalWRHWUTKKAW2643-15-23 15:37:00 Test Item Value Reference Range Interpretation Comments MCH (test code = MCH) 28.3 pg 27.0-31.0 [facility] FiifcexTDACNLFDYK9171-87-11 15:37:0088.6[facility]annHEMATOLOGY 2015-06-20 15:37:0013.4[facility] OrbnvhgDGTZFTKGWB7102-71-37 15:37:0031.9[facility] QcxliavEEHVVQCBZP7071-65-63 15:37:0011.3[facility] PowyfusBOLKOAIKWW8869-01-64 15:37:0039.5[facility] ZpsdpncKPEPQXZRCM4524-34-05 15:37:0012.6[facility] [place] DYUAVWBLLZ6678-81-70 15:37:004.46[facility] PxvzzvhQIRYTSPSPJ5576-30-23 15:37:00 321[facility] BdxwlgjIUFVKNXITO9055-09-72 15:37:008.5[facility]annHEMATOLOGY 2015-06-20 15:37:00 Test Item Value Reference Range Interpretation Comments aPTT (test code = aPTT) 32.0 s 22.9-35.8 [facility] AaasbrbXXJQCSIOEW9847-79-58 15:37:001.00[facility]annHEMATOLOGY 2015-06-20 15:37:00 Test Item Value Reference Range Interpretation Comments PROTIME (test code = PROTIME) 13.5 s 12.0-14.7 [facility]
[2020-01-21] MEDS ORDERED: IBUPROFEN 400 MG TAB ONE (08:57)
[2020-01-21] MEDS ORDERED: ACETAMINOPHEN 500 MG TAB ONE (09:00)
--- NOTE | 2020-01-21 09:23 | RAD REPORT ---
EXAM DESCRIPTION: RAD - Lumbar Spine 3 Views - 01/21/2020 9:14 am CLINICAL HISTORY: Back pain FINDINGS: The alignment of the lumbar spine is satisfactory. No acute fracture or dislocation is seen. A aortoiliac stent in place Osteoporosis Mild spondylosis
--- NOTE | 2020-01-21 09:26 | RAD REPORT ---
EXAM DESCRIPTION: RAD - C Spine W Obliques - 01/21/2020 9:15 am CLINICAL HISTORY: Neck pain FINDINGS: No fracture or dislocation is seen. Spondylosis involves the distal cervical spine
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
[2020-01-21 16:29] VITALS: BP 156/81; TEMP 98.5; O2SAT 98
== END 2020-01-21 10:44 | disposition home or self-care (01) ==
LOC: ER 08:13
DX: M62.838 Other muscle spasm (principal); V59.40XA Driver of pick-up truck or van injured in collision with unspecified motor vehicles in traffic accident, initial encounter; I10 Essential (primary) hypertension
CPT/HCPCS: 72050; 72100; 99284

== ENCOUNTER 2020-05-28 16:42 | Observation (INO) | payer OTHER ==
--- OUTSIDE RECORDS SUMMARY | 2020-05-28 16:44 | XMS REPORT | Continuity of Care Document ---
:1955 Author Organization [facility] t Address [address] [place] [address] Care Team Providers Name Role Phone SHARONA Attending Clinician Unavailable ORGANTRANSPLANT Attending Clinician Unavailable KIRILL-OUW Attending Clinician Unavailable ANJELICA Attending Clinician Unavailable Problems Condition Condition Condition Status Onset Resolution Last Treating Co mments Source Name Details Category Date Date Treatment Clinician Date History of History of Problem Resolve [facility] chronic chronic d [place] of obstructiv obstructiv [place] Physici disease disease ans History of History of Problem Resolve Univers essential essential d ity of hypertensi [place] Physici ans History of History of Problem Resolve Univers hyperlipid hyperlipid d it y of [place] Physici ans Prophylact Prophylact Problem Active U [...] y of n n [place] Physici ans Allergies, Adverse Reactions, Alerts This patient has no known allergies or adverse reactions. Family History Family Member Diagnosis Comments Start Date Stop Date Source Father Family history of End [facility] [place] stage renal disease Physi cians Father Family history of [facility] [place] Kidney transplant Physici ans recipient Father Family history of [facility] [place] Polycystic kidney Physici ans Social History Smoking Status Start Date Stop Date Source Ex-smoker (finding) [facility] [place] [facility] Medications Ordered Filled Start Stop Current Ordering Indication Dosage Frequency Signature Comments Components Source Medication Medication Date Date Medication? Clinician (SIG) Name Name Tadalafil 5 Tadalafil 5 2020-0 Yes TUNG SHARONA 1 TAKE 1 Univers MG Oral MG Oral 8-24 M.D. TABLET ity of Tablet Tablet 00:00: BEDTIME [place] [id number] Physici ans Tadalafil Tadalafil 2020-0 Yes TUNG SHARONA TAKE 1 Univers 20 MG Oral 20 MG Oral 8-24 M.D. TABLET 1 ity of Tablet Tablet 00:00: HOUR [place] 00 BEFORE Physici ACTIVITY ans NEEDED. Aspirin 81 Aspirin 81 Yes Uni vers MG TABS MG TABS ity of [place] Physici ans Allopurinol Allopurinol Yes U nivers 300 MG Oral 300 MG Oral i ty of Tablet Tablet [place] Physici ans Magnesium Magnesium Yes Unive rs 400 MG CAPS 400 MG CAPS i ty of [place] Physici ans Metoprolol Metoprolol Yes Uni vers Tartrate 50 Tartrate 50 i ty of MG Oral MG Oral [place] Tablet Tablet Physici ans Carvedilol Carvedilol Yes Uni vers 3.125 MG 3.125 MG ity of Oral Tablet Oral Tablet [place] Physici ans Tamsulosin Tamsulosin Yes Uni vers HCl 0.4 MG HCl 0.4 MG ity of CP24 CP24 [place] Physici ans raNITIdine raNITIdine Yes Uni vers 150 Max 150 Max ity of Strength Strength [place] TABS TABS Physici ans Calcitriol Calcitriol Yes Uni vers CAPS CAPS it[facility] of [place] Physici ans amLODIPine amLODIPine Yes Uni vers Besylate 10 Besylate 10 i ty of MG Oral MG Oral [place] Tablet Tablet Physici ans Atorvastati Atorvastati Yes U nivers n Calcium n Calcium ity o f 20 MG Oral 20 MG Oral [place] as Tablet Tablet Physici ans Cyclobenzap Cyclobenzap Yes U nivers rine HCl - rine HCl - ity of 10 MG Oral 10 MG Oral [place] as Tablet Tablet Physici ans Vital Signs Vital Name Observation Time Observation Value Comments Source Heart Rate 2020-04-23 56 /min Location: L [facility] ::00 [facility] Physician s Artery; Systolic blood 2020-04-23 186 mm[Hg] Location: [facility] 17:10:00 Position: [place] Physician s Sitting Diastolic blood 2020-04-23 82 mm[Hg] Location: [facility] 17:10:00 Position: [place] Physician s Sitting Body height 2020-04-23 74 [in_us] [facility] :10:00 [place] Physician s Weight 2020-04-23 240 [lb_av] [facility] :10: [place] Physician s Body mass index 2020-04-23 30.81 kg/m2 [place] o f (BMI) [Ratio] 17:10:00 [facility] ns Body temperature 2020-04-23 97.4 [degF] Method: [facility] :10: [facility] Physician s Systolic blood 2019-10-24 136 mm[Hg] Location: [facility] 17:12:00 Position: [place] Physician s Sitting Diastolic blood 2019-10-24 71 mm[Hg] Location: [facility] 17:12:00 Position: [place] Physician s Sitting Body height 2019-10-24 74 [in_us] [facility] 17:12:00 [place] Physician s Weight 2019-10-24 250 [lb_av] [facility] :12: [place] Physician s Body mass index 2019-10-24 32.1 kg/m2 [place] o f (BMI) [Ratio] 17:12:00 [place] Physicmo ns Heart Rate 2019-10-24 60 /min Location: L [facility] :: [facility] Physician s Artery; Body temperature 2019-10-24 97.8 [degF] Method: [facility] ::00 [facility] Physician s Procedures Procedure Date / Time Performed Performing Clinician [facility] e CT Abdomen/Pelvis 2019-10-24 00:00:00 [facility] w/wo contrast [id number] Chest wo contrast 2019-10-24 00:00:00 [facility] [id number] Physicians History of Abdominal [facility] aortic aneurysm Physicians repair Encounters Start End Encounter Admission Attending Care Care Encounter Source Date/Time Date/Time Type Type Clinicians Facility Department ID 2018-06-23 Inpatient [facility] [id number] MH H 10:22:21 2020 2020 [id number] 11:00:00 11:00:00 2020-04-23 2020-04-23 Appointmen ROSELINE TABOR UTP Urology - [id number] Univers 08:15:00 08:15:00 t; Bibi TABOR M.D. [facility] Physici ans 2020-04-04 2020-04-04 Appointmen ORGANTRANSP UTP UTP [id number] Univers 07:00:00 07:00:00 t; Montemayor o f [employer], OP Physic i ans 2020-04-04 2020-04-04 Outpatient [facility] CAR [id number] [facility] 06:56:00 06:56:00 2020-03-08 2020-03-08 [id number] 11:00:00 11:00:00 2019-10-24 2019-10-24 Appointmen ROSELINE TABOR UTP Urology - [id number] Univers 09:45:00 09:45:00 t; Bibi TABOR M.D. [facility] Physici ans 2019-05-09 2019-05-09 [id number] 15:00:00 15:00:00 2019-04-01 2019-04-01 Outpatient [facility] CAR [id number] [facility] 06:40:00 06:40:00 2019-03-16 2019-03-16 Appointmen ORGANTRANSP UTP UTP [id number] Univers 08:30:00 08:30:00 t; Paredesy o f [employer]GANTRANS [employer], OP Physic i ans 2019-03-16 2019-03-16 Outpatient [facility] CAR [id number] [facility] 06:50:00 06:50:00 2018-08-20 2018-08-20 Outpatient [facility] CAR [id number] [facility] 08:05:00 08:05:00 2018-07-07 2018-07-07 Outpatient [facility] PUL [id number] MH 09:33:00 09:33:00 2018-06-29 2018-06-29 Appointmen STEVEN [facility] UTP [id number] Univers 14:00:00 14:00:00 t; [place], M.D. Physici KRISTOFER, ans M.D. 2018-06-23 2018-06-23 Outpatient [facility] [id number] [facility] 10:27:00 10:27:00 2018-06-23 2018-06-23 Appointmen KODY DEJESUS UTP [id number] Univers 10:00:00 10:00:00 t; ANA DEJESUS, Bibi Godoy M.D. 2018-06-08 2018-06-08 Appointmen KIRILL-GAVIN [facility] UTP [id number] [facility] 10:00:00 10:00:00 t; Sharon [place], M.D. Physici KRISTOFER, ans M.D. Results This patient has no known results.
[2020-05-28 17:19] LABS: Absolute Lymphocytes (CBC) 1.8 K/uL (0.7-4.9); Basophils % 0.7 % (0-1.3); Lymphocytes % 26.4 % (15.3-44.8); MPV 8.9 fL (7.6-11.3)
--- NOTE | 2020-05-28 17:31 | RAD REPORT ---
EXAM DESCRIPTION: RAD - Chest Single View - 05/28/2020 5:25 pm CLINICAL HISTORY: CONGESTION Chest pain. COMPARISON: Chest Single View dated 11/14/2019; Chest Single View dated 04/09/2018; Chest Pa And Lat (2 Views) dated 03/31/2018; Chest Single View dated 06/21/2017 FINDINGS: Portable technique limits examination quality. The lungs are grossly clear. The heart is normal in size. No displaced fractures. IMPRESSION: No acute intrathoracic process suspected.
[2020-05-28 17:33] LABS: Protime INR 1.06
[2020-05-28 17:47] LABS: ALT/SGPT 14 U/L (12-78); AST/SGOT 8 U/L (15-37); Alkaline Phosphatase 46 U/L (45-117); BUN Blood Urea Nitrogen 52 mg/dL (7-18); Bicarbonate 24 mmol/L (21-32); Bilirubin Direct < 0.1 mg/dL (0-0.2); Bilirubin Total 0.3 mg/dL (0.2-1.0); Glucose Level 82 mg/dL (74-106); Magnesium 2.1 mg/dL (1.8-2.4); NT PRO-BNP 913 pg/mL (<125); Potassium 3.9 mmol/L (3.5-5.1); Protein, Total 6.9 g/dL (6.4-8.2); Sodium Level 141 mmol/L (136-145); Troponin (Emerg Dept Use Only) < 0.02 ng/mL (0.0-0.045)
--- NOTE | 2020-05-28 18:29 | RAD REPORT ---
EXAM DESCRIPTION: CT - Abdomen Pelvis Wo Contrast - 05/28/2020 6:20 pm CLINICAL HISTORY: Abdominal pain. upper abdominal pain COMPARISON: Abdomen Pelvis Wo Contrast dated 02/26/2019 TECHNIQUE: CT imaging of the abdomen and pelvis was performed without contrast. Solid organ, bowel a nd vascular assessment is limited due to lack of IV and oral contrast. All CT scans are performed using dose optimization technique as appropriate and may include automated exposure control or mA/KV adjustment according to patient size. FINDINGS: 13 mm nodule is seen in the medial right lung base abutting the pleura with fat density, l ikely pulmonary hamartoma. Multiple liver cysts are present. No intra or extrahepatic biliary tree dilatation. The spleen, pancr eas and adrenal glands are normal.Innumerable cysts are present throughout both kidneys. No hydroneph rosis. Endograft is present within the aorta. No bowel obstruction, free air, free fluid or abscess. Sigmoid diverticulosis coli is present without diverticulitis. The appendix is normal. Small fat containing umbilical hernia. Urinary bladder wall thickening is present. The osseous structures are within normal limits. IMPRESSION: Urinary bladder wall thickening is noted which can be seen in cystitis. Suggest correlat ion with urinalysis. Polycystic kidneys. Sigmoid diverticulosis coli without diverticulitis. A limited non-contrast examination was performed as detailed.
--- NOTE | 2020-05-28 18:54 | ER ---
Nurse's Notes [facility] Name: Stan Jimenes Age: 65 yrs Sex: Male : 1955 Arrival Date: 05/28/2020 Time: 16:47 Bed 6 Private MD: Diagnosis: Syncope and collapse Presentation: 05/28 16:47 Chief complaint: Patient states: Indigestion and SOB on and off x 1 week ago. Pt also aa5 reports generalized weakness x 1 week ago. Denies cough. 16:47 Method Of Arrival: EMS: [facility] aa5 16:47 Coronavirus screen: shortness of breath. Ebola Screen: Patient negative for fever aa5 greater than or equal to 101.5 degrees Fahrenheit, and additional compatible Ebola Virus Disease symptoms. Initial Sepsis Screen: Does the patient meet any 2 criteria? No. Patient's initial sepsis screen is negative. Does the patient have a suspected source of infection? No. Patient's initial sepsis screen is negative. Risk Assessment: Do you want to hurt yourself or someone else? Patient reports no desire to harm self or others. Onset of symptoms was April 2020. 16:47 Acuity: CHAVA 3 aa5 16:47 Care prior to arrival: IV initiated. 20 GA, in the right antecubital area, Glucose aa5 check: 124. Historical: - Allergies: 16:53 No Known Allergies; aa5 - PMHx: 16:53 AAA; COPD; Diabetes - NIDDM; High Cholesterol; Hypertension; POLYCYSTIC KIDNEY DISEASE; aa5 Gout; - PSHx: 16:53 missing rib on L; AAA repair; aa5 - Social history:: Patient/guardian denies using alcohol, street drugs, The patient lives with family. - Family history:: not pertinent. Screenin:00 Abuse screen: Denies threats or abuse. Nutritional screening: No deficits noted. aa5 Tuberculosis screening: No symptoms or risk factors identified. Fall Risk None identified. Assessment: 16:47 General: Appears comfortable, Behavior is calm, cooperative. Pain: Denies pain. Neuro: aa5 Level of Consciousness is awake, alert, obeys commands, Oriented to person, place, time, situation. Cardiovascular: Heart tones S1 S2 present Rhythm is sinus bradycardia. Respiratory: Reports shortness of breath on and off for 1 week Airway is patent Respiratory effort is even, unlabored, Respiratory pattern is regular, symmetrical, Breath sounds are clear bilaterally. Denies cough. GI: Abdomen is round Reports indigestion, tolerance of fluids, tolerance of food, Patient currently denies nausea, vomiting. : No signs and/or symptoms were reported regarding the genitourinary system. EENT: No signs and/or symptoms were reported regarding the EENT system. Derm: Skin is pink, warm \T\ dry. Musculoskeletal: Range of motion: intact in all extremities. 17:30 Reassessment: Patient is alert, oriented x 3, equal unlabored respirations, skin aa5 warm/dry/pink. 18:50 Reassessment: Patient is alert, oriented x 3, equal unlabored respirations, skin aa5 warm/dry/pink. US at bedside . 19:30 General: Appears in no apparent distress. comfortable, Behavior is calm, cooperative, rr5 appropriate for age. 19:30 Neuro: Level of Consciousness is awake, alert, obeys commands, Oriented to person, rr5 place, time, Reports weakness. Cardiovascular: Capillary refill < 3 seconds Patient's skin is warm and dry. Respiratory: Airway is patent Respiratory effort is even, unlabored, Respiratory pattern is regular, symmetrical. GI: No signs and/or symptoms were reported involving the gastrointestinal system. Derm: Skin is intact, Skin temperature is warm. Musculoskeletal: Circulation, motion, and sensation intact. Capillary refill < 3 seconds. 20:30 Reassessment: Patient appears in no apparent distress at this time. Patient and/or rr5 family updated on plan of care and expected duration. Pain level reassessed. Patient is alert, oriented x 3, equal unlabored respirations, skin warm/dry/pink. no complaints made awaiting for covid result. 21:19 Reassessment: Patient and/or family updated on plan of care and expected duration. Pain ea level reassessed. Patient is alert, oriented x 3, equal unlabored respirations, skin warm/dry/pink. Pt left ED via wheelchair per tech. Pt tolerating well. Vital Signs: 16:47 BP 144 / 76; Pulse 53; Resp 18 S; Temp 98.1(O); Pulse Ox 99% on R/A; Weight 108.41 kg aa5 (R); Height 6 ft. 2 in. (187.96 cm) (R); Pain 0/10; 17:30 BP 126 / 74; Pulse 48; Resp 20 S; Pulse Ox 96% on R/A; aa5 19:00 BP 135 / 94; Pulse 73; Resp 18 S; Pulse Ox 97% on R/A; aa5 20:00 BP 126 / 89; Pulse 80; Resp 17; Pulse Ox 98% ; rr5 21:11 BP 131 / 85; Pulse 70; Resp 17; Temp 98; Pulse Ox 99% ; rr5 16:47 Body Mass Index 30.69 (108.41 kg, 187.96 cm) aa5 ED Course: 16:47 Patient arrived in ED. em1 16:47 Judy Parry, RN is Primary Nurse. aa5 16:47 Arm band placed on. aa5 16:47 Patient has correct armband on for positive identification. Placed in gown. Bed in low aa5 position. Call light in reach. Side rails up X2. daub color mixer on. Pulse ox on. NIBP on. 16:50 Maintain EMS IV. Dressing intact. Good blood return noted. Site clean \T\ dry. Gauge \T\ aa 5 site: 20G to R AC. 16:51 Triage completed. aa5 16:53 Jairon De Jesus MD is Attending Physician. ma2 17:25 XRAY Chest (1 view) In Process Unspecified. EDMS 18:19 CT Abd/Pelvis - Without Contrast In Process Unspecified. EDMS 18:53 Erasto Ya MD is Hospitalizing Provider. ma2 18:55 Aorta Ivc Iliacs Complete In Process Unspecified. EDMS 19:00 Report given to MONA Arnold and MONA Maurer. aa5 21:12 No provider procedures requiring assistance completed. Patient admitted, IV remains in rr5 place. intact, No redness/swelling at site. Administered Medications: 17:30 Drug: NS 0.9% 1000 ml Route: IV; Rate: 125 ml/hr; Site: right antecubital; aa5 21:14 Follow up: Response: No adverse reaction; IV Status: Infusion continued upon admission; rr5 IV Intake: 500ml 19:33 Drug: Rocephin (cefTRIAXone) 1 grams Route: IV; Rate: calculated rate; Site: right ea antecubital; 20:26 Follow up: Response: No adverse reaction; IV Status: Completed infusion; IV Intake: [id number] Intake: 20:26 IV: 10ml; Total: 10ml. rr5 21:14 IV: 500ml; Total: 510ml. rr5 Outcome: 18:54 Decision to Hospitalize by Provider. ma2 21:12 Admitted to Med/surg accompanied by nurse, via wheelchair, room 225, with chart, Report rr5 called to [facility] 21:12 Condition: stable 21:12 Instructed on the need for admit. 21:41 Patient left the ED. rr5 Signatures: Dispatcher [employer] Chase Neves em1 Judy Parry, RN RN aa5 Catalina Worley RN RN Jairon Denton MD MD ma2 Erasto Vegas RN RN rr5 Corrections: (The following items were deleted from the chart) 16:53 16:47 Chief complaint: Patient states: Indigestion and SOB on and off x 1 week ago. Pt aa5 also reports generalized weakness x 1 week ago. aa5
--- NOTE | 2020-05-28 18:55 | EDPHYS ---
Physician Documentation [facility] Name: Stan Jimenes Age: 65 yrs Sex: Male : 1955 Arrival Date: 05/28/2020 Time: 16:47 Bed 6 Private MD: ED Physician Jairon De Jesus HPI: 05/28 16:59 This 65 yrs old Male presents to ER via EMS with complaints of Shortness Of ma2 Breath, General Weakness. 16:59 The patient has shortness of breath at rest. Onset: The symptoms/episode began/occurred ma2 suddenly, 1 hour(s) ago. Associated signs and symptoms: Pertinent negatives: non-productive cough, dizziness, fever, hemoptysis. Severity of symptoms: At their worst the symptoms were mild moderate in the emergency department the symptoms have improved. bib ems for near syncope, ems found bp 85/40 and gave him 1 l ns bolus, he had episdoe of sob prior to that, has epigastric pain for a week, he has AAA and prior aortic repair. Historical: - Allergies: 16:53 No Known Allergies; aa5 - PMHx: 16:53 AAA; COPD; Diabetes - NIDDM; High Cholesterol; Hypertension; POLYCYSTIC KIDNEY DISEASE; aa5 Gout; - PSHx: 16:53 missing rib on L; AAA repair; aa5 - Social history:: Patient/guardian denies using alcohol, street drugs, The patient lives with family. - Family history:: not pertinent. ROS: 16:59 Constitutional: Negative for fever, chills, and weight loss, Eyes: Negative for injury, ma2 pain, redness, and discharge, ENT: Negative for injury, pain, and discharge, Neck: Negative for injury, pain, and swelling, Cardiovascular: Negative for chest pain, palpitations, and edema, Respiratory: Negative for shortness of breath, cough, wheezing, and pleuritic chest pain, Abdomen/GI: Negative for abdominal pain, nausea, diarrhea, and constipation, Back: Negative for injury and pain, MS/Extremity: Negative for injury and deformity, Skin: Negative for injury, rash, and discoloration, Neuro: Negative for headache, weakness, numbness, tingling, and seizure, Psych: Negative for depression, anxiety, suicide ideation, homicidal ideation, and hallucinations, Allergy/Immunology: Negative for hives, rash, and allergies. Exam: 16:59 Constitutional: This is a well developed, well nourished patient who is awake, alert, ma2 and in no acute distress. Head/Face: Normocephalic, atraumatic. ENT: Nares patent. No nasal discharge, no septal abnormalities noted. Tympanic membranes are normal and external auditory canals are clear. Oropharynx with no redness, swelling, or masses, exudates, or evidence of obstruction, uvula midline. Mucous membranes moist. Neck: Trachea midline, no thyromegaly or masses palpated, and no cervical lymphadenopathy. Supple, full range of motion without nuchal rigidity, or vertebral point tenderness. No Meningismus. Chest/axilla: Normal chest wall appearance and motion. Nontender with no deformity. No lesions are appreciated. Cardiovascular: Regular rate and rhythm with a normal S1 and S2. No gallops, murmurs, or rubs. Normal PMI, no JVD. No pulse deficits. Respiratory: Lungs have equal breath sounds bilaterally, clear to auscultation and percussion. No rales, rhonchi or wheezes noted. No increased work of breathing, no retractions or nasal flaring. Abdomen/GI: Soft, non-tender, with normal bowel sounds. No distension or tympany. No guarding or rebound. No evidence of tenderness throughout. Back: No spinal tenderness. No costovertebral tenderness. Full range of motion. Skin: Warm, dry with normal turgor. Normal color with no rashes, no lesions, and no evidence of cellulitis. MS/ Extremity: Pulses equal, no cyanosis. Neurovascular intact. Full, normal range of motion. Neuro: Awake and alert, GCS 15, oriented to person, place, time, and situation. Cranial nerves II-XII grossly intact. Motor strength 5/5 in all extremities. Sensory grossly intact. Cerebellar exam normal. Normal gait. Vital Signs: 16:47 BP 144 / 76; Pulse 53; Resp 18 S; Temp 98.1(O); Pulse Ox 99% on R/A; Weight 108.41 kg aa5 (R); Height 6 ft. 2 in. (187.96 cm) (R); Pain 0/10; 17:30 BP 126 / 74; Pulse 48; Resp 20 S; Pulse Ox 96% on R/A; aa5 19:00 BP 135 / 94; Pulse 73; Resp 18 S; Pulse Ox 97% on R/A; aa5 20:00 BP 126 / 89; Pulse 80; Resp 17; Pulse Ox 98% ; rr5 21:11 BP 131 / 85; Pulse 70; Resp 17; Temp 98; Pulse Ox 99% ; rr5 16:47 Body Mass Index 30.69 (108.41 kg, 187.96 cm) aa5 MDM: 16:53 Patient medically screened. ma2 18:53 Differential diagnosis: Anemia pneumonia, reactive airway disease, Sepsis. Data ma2 reviewed: vital signs, nurses notes. Counseling: I had a detailed discussion with the patient and/or guardian regarding: the historical points, exam findings, and any diagnostic results supporting the discharge/admit diagnosis, the presence of at least one elevated blood pressure reading (>120/80) during this emergency department visit, the need for further work-up and treatment in the hospital. 05/28 16:55 Order name: Basic Metabolic Panel; Complete Time: 18:33 05/28 16:55 Order name: CBC with Diff; Complete Time: 18:33 05/28 18:48 Interpretation: MCHC 32.9. la1 05/28 16:55 Order name: LFT's; Complete Time: 18:33 05/28 16:55 Order name: Magnesium; Complete Time: 18:33 05/28 16:55 Order name: NT PRO-BNP; Complete Time: 18:33 05/28 16:55 Order name: PT-INR; Complete Time: 18:33 05/28 16:55 Order name: Troponin (emerg Dept Use Only); Complete Time: 18:33 05/28 16:55 Order name: XRAY Chest (1 view); Complete Time: 18:33 05/28 16:55 Order name: US Aorta Ivc Iliacs Complete; Complete Time: 19:40 05/28 17:02 Order name: CT Abd/Pelvis - Without Contrast; Complete Time: 18:33 05/28 20:37 Order name: Urine Dipstick--Ancillary (enter results) tt3 05/28 20:37 Order name: SARS-COV-2 RT PCR EDMS 05/28 20:54 Order name: Urine Dipstick-Ancillary; Complete Time: 21:54 EDFL 05/28 16:55 Order name: EKG; Complete Time: 16:56 [facility] 05/28 16:55 Order name: Cardiac monitoring; Complete Time: 17:10 [facility] 05/28 16:55 Order name: EKG - Nurse/Tech; Complete Time: 17:10 [facility] 05/28 16:55 Order name: IV Saline Lock; Complete Time: 17:10 [facility] 05/28 16:55 Order name: Labs collected and sent; Complete Time: 17: [facility] 05/28 16:55 Order name: O2 Per Protocol; Complete Time: 17:10 [facility] 05/28 16:55 Order name: O2 Sat Monitoring; Complete Time: 17: [facility] 05/28 20:15 Order name: Urine Dipstick-Ancillary (obtain specimen); Complete Time: 20:25 la1 Administered Medications: 17:30 Drug: NS 0.9% 1000 ml Route: IV; Rate: 125 ml/hr; Site: right antecubital; aa5 21:14 Follow up: Response: No adverse reaction; IV Status: Infusion continued upon admission; rr5 IV Intake: 500ml 19:33 Drug: Rocephin (cefTRIAXone) 1 grams Route: IV; Rate: calculated rate; Site: right ea antecubital; 20:26 Follow up: Response: No adverse reaction; IV Status: Completed infusion; IV Intake: [id number] Disposition: 05/28/20 18:54 Hospitalization ordered by Erasto Ya for Observation. Preliminary diagnosis is Syncope and collapse. - Bed requested for Telemetry/MedSurg (observation). - Status is Observation. rr5 - Condition is Stable. - Problem is new. - Symptoms are unchanged. Signatures: Dispatcher [employer] EDFL Griselda Garduno RN RN Judy Parry RN RN aa5 Parish John, LYNN-C SEQUINS WINDER-Cla1 Catalina Worley RN RN ea Alzahri, Mohammad, MD MD ma2 Erasto Vegas RN RN rr5 Corrections: (The following items were deleted from the chart) 19:56 19:27 CORONAVIRUS+MR.LAB.BRZ ordered. EDFL EDMS 20:25 16:55 Urine Dipstick-Ancillary ordered. ma2 rr5 21:01 18:54 Hospitalization Ordered by Erasto Ya MD for Observation. Preliminary mw diagnosis is Syncope and collapse. Bed requested for Telemetry/MedSurg (observation). Status is Observation. Condition is Stable. Problem is new. Symptoms are unchanged. ma2 21:41 21:01 05/28/2020 18:54 Hospitalization Ordered by Erasto Ya MD for Observation. rr5 Preliminary diagnosis is Syncope and collapse. Bed requested for Telemetry/MedSurg (observation). Status is Observation. Condition is Stable. Problem is new. Symptoms are unchanged. mw
--- NOTE | 2020-05-28 19:01 | RAD REPORT ---
EXAM DESCRIPTION: US - Aorta Ivc [place] Complete - 05/28/2020 6:55 pm CLINICAL HISTORY: syncope hx of AAA epigastric Abdominal pain COMPARISON: Renal Ultrasound-Complete dated 11/15/2019; Abdomen Pelvis Wo Contrast dated 05/28/2020 FINDINGS: Proximal aorta was obscured by bowel gas. Aortic endograft is visualized along the mid and lower aspect of the abdominal aorta appears patent. IMPRESSION: Patent aortic endograft noted.
[2020-05-28] MEDS ORDERED: CEFTRIAXONE/SWI 1gm 1 GM/10 ML SYR ONE (19:37)
--- NOTE | 2020-05-28 20:19 | P.HP ---
Certification for Inpatient Patient admitted to: Observation With expected LOS: <2 Midnights Patient will require the following post-hospital care: None Practitioner: I am a practitioner with admitting privileges, knowledge of patient current condition, hospital course, and medical plan of care. Services: Services provided to patient in accordance with Admission requirements found in Title 42 Section 412.3 of the Code of Federal Regulations <Parish John - Last Filed: 05/28/20 20:13> Patient History Date of Service: 05/28/20 Primary Care Provider: Jules, Dr. Velasquez Reason for admission: Near syncope, bradycardia History of Present Illness: 65-year-old male with history of CKD 5, hypertension, hyperlipidemia, COPD, GERD, AAA status post repair with stent in place presents emergency department for near syncope/hypotension. Patient reports for the past 1 week he has had multiple episodes of near syncope, patient denies associated chest pain/palpitations/headaches but does report some associated shortness of breath and dizziness. Patient evaluated in the emergency department, renal function stable with CKD 5 GFR of 10 and creatinine 5.77. Hemoglobin 10.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 CT mentions endo graft is present within the aorta, ultrasound also confirms placement does not mention any new or worsening aneurysm. Patient's blood pressure reported to be in the 70s by EMS on scene but has improved while in the emergency department, patient has remained bradycardic with heart rate in the high 40s to low 50s, sinus bradycardia. Patient does report taking carvedilol at home. ED provider wishes to admit patient for further evaluation and management. - Past Medical/Surgical History Diabetic: Yes -: Hypertension -: Hyperlipidemia -: Aortic aneurysm stent -: Polycystic kidney disease -: Chronic kidney disease -: GERD -: Diabetes mellitus type 2 -: COPD -: AAA repair Psychosocial/ Personal History: Patient is , has 2 children and is now retired. - Family History dad -: Diabetes, Kidney disease - Social History Smoking Status: Former smoker Alcohol use: No CD- Drugs: No Caffeine use: Yes Place of Residence: Home <Parish John - Last Filed: 05/28/20 20:13> Date of Service: 05/29/20 <Erasto Ya - Last Filed: 05/29/20 19:51> Allergies No Known Allergies Allergy (Verified 03/27/17 10:06) Home Medications: Albuterol Inhaler [Ventolin Inhaler*] 2 aero IN 1X 05/29/20 Aspirin [Aspirin EC 81 MG] 81 mg PO DAILY 05/29/20 Atorvastatin Calcium [Lipitor*] 10 mg PO BEDTIME 05/29/20 Calcitrol [Rocaltrol*] 0.25 mcg PO Q48H 30 Days #15 cap 05/29/20 carvediloL [Coreg*] 6.25 mg PO BID 30 Days #60 tab 05/29/20 Review of Systems 10-point ROS is otherwise unremarkable General: Chills, Weakness Respiratory: As per HPI Cardiovascular: As per HPI <Parish John - Last Filed: 05/28/20 20:13> Physical Examination - Physical Exam General: Alert, In no apparent distress, Oriented x3, Obese HEENT: Atraumatic, PERRLA, Mucous membr. moist/pink, EOMI, Sclerae nonicteric Neck: Supple, 2+ carotid pulse no bruit, No LAD, Without JVD or thyroid abnormality Respiratory: Clear to auscultation bilaterally, Normal air movement Cardiovascular: Regular rate/rhythm, Normal S1 S2 Gastrointestinal: Normal bowel sounds, No tenderness Musculoskeletal: No tenderness Integumentary: No rashes Neurological: Normal speech, Normal strength at 5/5 x4 extr, Normal tone - Studies Laboratory Data (last 24 hrs) 05/28/20 17:05: PT 12.2, INR 1.06 05/28/20 17:05: WBC 6.90, Hgb 10.2 L, Hct 31.0 L, Plt Count 174 05/28/20 17:05: Sodium 141, Potassium 3.9, BUN 52 H, Creatinine 5.77 H*, Glucose 82, Magnesium 2.1, Total Bilirubin 0.3, AST 8 L, ALT 14, Alkaline Phosphatase 46 <Parish John - Last Filed: 05/28/20 20:13> Assessment and Plan - Plan Assessment Near syncope, bradycardia CKD 5 Hypertension Hyperlipidemia History of AAA S/P endograft Plan Near syncope, bradycardia: Monitor on telemetry, hold carvedilol. Cardiology consult in place, echocardiogram/carotid ultrasound ordered. No neurological deficits, headache reported, likely cardiac in nature as patient is bradycardic and had some hypotension in the field. Will obtain thyroid panel with morning labs. DVT prophylaxis heparin 5000 units subcutaneous twice daily. Appreciate further input from cardiology. CKD 5: Patient with stable CKD 5 secondary to polycystic kidney disease, on transplant list. Will continue gentle hydration, nephrology consult in place. Hypertension: Continue home medications, hold carvedilol due to bradycardia. Hyperlipidemia: Continue home med. History of AAA S/P endograft: Appears stable on imaging. Continue to monitor. Discharge Plan: Home Plan to discharge in: 24 Hours - Advance Directives Does patient have a Living Will: No Does patient have a Durable POA for Healthcare: No - Code Status/Comfort Care Code Status Assessed: Yes (Full code) Critical Care: No Time Spent Managing Pts Care (In Minutes): 55 <Parish John - Last Filed: 05/28/20 20:13> - Plan Plan of care reviewed as noted above by Parish John. Near syncope, bradycardia - likely orthostatic as well - leading to near-syncope / symptoms will decrease coreg, consult cardiology and nephrology <Erasto Ya - Last Filed: 05/29/20 19:51>
[2020-05-28 20:54] LABS: Urine Blood 1+ (Negative); Urine Glucose NEGATIVE (Negative); Urine Protein 3+ (NEG); Urine Specific Gravity 1.025 (1.005-1.030)
[2020-05-28] MEDS ORDERED: ONDANSETRON 4 MG/2 ML VIAL IV PRN (21:32)
[2020-05-28] MEDS ORDERED: ACETAMINOPHEN 500 MG TAB PO PRN (21:32)
[2020-05-28] MEDS: NA CHLORIDE 0.9% 1,000 ML IV SCH (21:32)
[2020-05-28 22:38] VITALS: BMI 30.9
[2020-05-28 22:38] LABS: Urine Appearance CLEAR (Clear); Urine Bilirubin NEGATIVE (NEG); Urine Blood 1+ (Negative); Urine Color YELLOW (Yellow); Urine Glucose 1+ (Negative); Urine Protein 2+ (NEG); Urine Urobilinogen 0.2 mg/dL (0.2-1.0); Urine pH 6.5 (5.0-7.0)
[2020-05-28 22:39] LABS: Urine Microscopic Reflex ORDER UMIC
[2020-05-28] MEDS: HEPARIN 5000 UNIT/ML 1 ML VIAL SQ SCH (22:44)
[2020-05-28 23:22] VITALS: O2SAT 99
[2020-05-29 00:39] LABS: Urine Bacteria <20 /HPF (NONE SEEN); Urine RBC <5 /HPF (NONE SEEN); Urine Urothelial Cells <5 /HPF (NONE SEEN)
[2020-05-29 06:12] LABS: Basophils % 0.5 % (0-1.3); Hematocrit 32.3 % (39.6-49.0); RBC Red Blood Cell Count 3.53 M/uL (4.33-5.43)
[2020-05-29 06:45] LABS: ALT/SGPT 13 U/L (12-78); AST/SGOT 10 U/L (15-37); Albumin 2.8 g/dL (3.4-5.0); Alkaline Phosphatase 43 U/L (45-117); BUN Blood Urea Nitrogen 53 mg/dL (7-18); Bicarbonate 23 mmol/L (21-32); Bilirubin Total 0.2 mg/dL (0.2-1.0); Glucose Level 90 mg/dL (74-106); Potassium 3.8 mmol/L (3.5-5.1); Protein, Total 6.6 g/dL (6.4-8.2); Sodium Level 144 mmol/L (136-145); Troponin I < 0.02 ng/mL (0.0-0.045)
[2020-05-29] MEDS ORDERED: PNEUMOCOCCAL VACCINE 0.5 ML IMVAC ONE (09:00)
[2020-05-29] MEDS ORDERED: INFLUENZA VACCINE (for 3y+) 0.5 ML DOSE IMVAC ONE (09:00)
[2020-05-29] MEDS: HEPARIN 5000 UNIT/ML 1 ML VIAL SQ SCH (09:06)
[2020-05-29] MEDS: NA CHLORIDE 0.9% 1,000 ML IV SCH (09:13)
[2020-05-29 10:08] VITALS: TEMP 97.6
--- NOTE | 2020-05-29 10:54 | RAD REPORT ---
EXAM DESCRIPTION: - CP - 05/29/2020 10:23 am CLINICAL HISTORY: near syncope, bradycardia Headache, drowsiness COMPARISON: No comparisons TECHNIQUE: Real-time sonographic evaluation of both carotid systems was performed. Doppler interroga tion was performed with waveform tracing bilaterally. FINDINGS: Normal high resistance waveforms are noted in both external carotid arteries. The common c arotid arteries and internal carotid arteries show normal low resistance waveforms. Mild hard plaque is seen in both carotid bulbs proximal internal carotid arteries. Peak systolic and end diastolic velocity values and the ICA/CCA ratios are in the non-hemodynamically significant range . Antegrade flow seen in both vertebral arteries. IMPRESSION: Mild hard plaquing is seen in both carotid bulbs and proximal internal carotid arteries. No evidence of a hemodynamically significant stenosis.
[2020-05-29] MEDS ORDERED: SODIUM CHLORIDE 0.9% 10ML INJ IV PRN (12:09)
[2020-05-29 12:42] VITALS: BP 182/77
--- NOTE | 2020-05-29 12:55 | EKG ---
Test Date: 2020-05-28 Test Time: 17:16:29 Floor Covering Layer: CRISTINO MEASUREMENT RESULTS: Intervals: Rate: 49 MA: 240 QRSD: 80 QT: 460 QTc: 415 [place]: P: 82 MA: 240 QRS: 34 T: 26 INTERPRETIVE STATEMENTS: Sinus bradycardia with 1st degree AV block Septal infarct, age undetermined Abnormal ECG Compared to ECG 11/14/2019 18:09:51 Atrial premature complex(es) no longer present Aberrant conduction of supraventricular beat(s) no longer present Myocardial infarct finding still present Electronically Signed On 05-29-20 12:52:43 CDT by Yvon Baum
[2020-05-29] MEDS ORDERED: CALCITROL 0.25 MCG CAP PO SCH (13:00)
--- NOTE | 2020-05-29 13:58 | ECHO ---
HEIGHT: 6 ft 2 in WEIGHT: 241 lb 0 oz DATE OF STUDY: 05/29/[address]: Parish John NP 2-DIMENSIONAL: YES M.MODE: YES DOPPLER: YES COLOR FLOW: YES TDS: PORTABLE: DEFINITY: BUBBLE STUDY: DIAGNOSIS: NEAR SYNCOPE, BRADYCARDIA CARDIAC HISTORY: CATHERIZATION: NO SURGERY: NO PROSTHETIC VALVE: NO PACEMAKER: NO MEASUREMENTS (cm) DIASTOLIC (NORMALS) SYSTOLIC (NORMALS) IVSd 1.0 (0.6-1.2) LA Diam 2.1 (1.9-4.0) LVEF 70% LVIDd 4.4 (3.5-5.7) LVIDs 3.3 (2.0-3.5) %FS % LVPWd 1.2 (0.6-1.2) Ao Diam 3.0 (2.0-3.7) 2 DIMENSIONAL ASSESSMENT: RIGHT ATRIUM: NORMAL LEFT ATRIUM: NORMAL RIGHT VENTRICLE: NORMAL LEFT VENTRICLE: NORMAL TRICUSPID VALVE: NORMAL MITRAL VALVE: NORMAL PULMONIC VALVE: NORMAL AORTIC VALVE: NORMAL PERICARDIAL EFFUSION: NONE AORTIC ROOT: NORMAL LEFT VENTRICULAR WALL MOTION: NORMAL DOPPLER/COLOR FLOW: NORMAL COMMENTS: AORTIC SCLEROSIS - NO STENOSIS. NO WALL MOTION ABNORMALITY. NO EFFUSION NORMAL LEFT VENTRICULAR EJECTION FRACTION AND SIZE. TECHNOLOGIST: RUPINDER RODRIGUEZ
--- NOTE | 2020-05-29 16:01 | CON ---
Date of Consultation: 05/29/2020 Reason For Consultation: Elevated BUN and creatinine. History Of Present Illness: This is a 65-year-old gentleman, well known to me from the office, with significant past medical history of chronic kidney disease secondary to polycystic kidney disease on transplant workup, hypertension, hyperlipidemia, diabetes complicated with neuropathy and nephropathy, triple AAA status post repair, COPD, the patient came to the hospital complaining from 3 syncopal attacks. Upon presentation to the hospital, the patient's blood pressure was down to 70. Primary cardiac workup was negative. Aortic graft was patent. The patient over the night was started on gentle hydration. Allergies: NO KNOWN DRUGS ALLERGY. Home Medications: Include amlodipine 5, atorvastatin, doxazosin, Cialis, calcitriol. Past Medical History: Includes; 1. Hypertension. 2. Hyperlipidemia. 3. Chronic kidney disease secondary to diabetes/polycystic kidney disease. 4. Polycystic kidney disease. 5. Aortic aneurysm. 6. COPD. 7. AAA. Family History: Positive for diabetes. Social History: Former smoker, active caffeine. Denied alcohol. Denied drugs abuse. Review of Systems: Head and Neck: Lightheaded. GI: Has epigastric pain. Has bloating. : No polyuria. No dysuria. No hematuria. SURGERY NURSE: Not applicable. Respiratory: No shortness of breath. Cardiovascular: Has chest tightness and loss of consciousness. Endocrine: No polydipsia. Skin: No rash. Neuro: Has a presyncopal episode. Musculoskeletal: Generalized fatigue. Physical Examination: Vital Signs: Upon arrival to the hospital, the patient had low blood pressure to the 70. Currently, blood pressure 177/80, pulse of 58, afebrile. The patient had good urine output. Chest: Clear to auscultation. Heart: S1, S2. Regular. Abdomen: Soft, nontender. Extremity: No edema. Neuro: Alert, oriented x3. No focal. Laboratory Data: WBC 7.4, H and H 10.6/32.3, platelets 172. Sodium 144, potassium 3.8, bicarb 23, BUN 53, creatinine 5.8, GFR of 10, calcium 8.8. TSH 3.2. Current Medications: The patient on include normal saline at 75 per hour, Zofran,. Assessment And Plan: 1. Chronic kidney disease, close to his baseline. No uremic symptoms. No hyperkalemia or acidosis. I do not see the need to initiate any renal replacement therapy for the time being. The patient has normal volume. I am going to discontinue IV fluid and we will follow up. 2. Hypertension with the presence of hypotension. I am going to go ahead and adjust his home blood pressure medications. I am going to go ahead and decrease the carvedilol to 3.125, discontinue the Cardura. Given the possibility of syncope, I will hold on the calcium channel katrina for the time being. 3. Secondary hyperparathyroidism. Resume calcitriol. 4. Aortic aneurysm, syncope. We will follow up with Cardiology. The patient had a carotid Doppler and CT abdomen was okay. time spent discussing with the patient, examine the patient face to face placing order , discuss with the staff and other specialty including hospitalist 45 min. ZI Voice ID: [id number] Report ID: [id number] LYNDA
[2020-05-29] MEDS ORDERED: METOCLOPRAMIDE 10 MG/2mL INJ IV SCH (16:30)
[2020-05-29] MEDS ORDERED: carvediloL 3.125 MG TAB PO SCH ×2 (18:00)
--- NOTE | 2020-05-29 19:58 | P.DS ---
Admission Date: 05/28/20 Discharge Date: 05/29/20 Primary Care Provider: None, Dr. Velasquez Disposition: ROUTINE DISCHARGE Discharge Condition: GOOD Reason for Admission: Near syncope, bradycardia Consultations: Cardiology -Dr. Baum Nephrology - Dr. Velasquez Procedures: CXR (05/28): No acute intrathoracic process suspected. 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 Multiple liver cysts are present. No intra or extrahepatic biliary tree dilatation. The spleen, pancreas and adrenal glands are normal.Innumerable cysts are present throughout both kidneys. No hydronephrosis. Endograft is present within the aorta. No bowel obstruction, free air, free fluid or abscess. Sigmoid dive rticulosis coli is present without diverticulitis. The appendix is normal. Small fat containing umbilical hernia. Urinary bladder wall thickening is present. The osseous structures are within normal limits. Carotid U/S (05/28): Mild hard plaquing is seen in both carotid bulbs and proximal internal carotid arteries. No evidence of a hemodynamically significant stenosis. Aortoiliac vascular U/S (05/28): Aortic endograft is visualized along the mid and lower aspect of the abdominal aorta appears patent. TTE (05/29): Aortic sclerosis, no stenosis. no wall motion abnormality. no effusion. normal LVEF: 70%. Problem List: Near syncope, bradycardia CKD 5 Hypertension Hyperlipidemia History of AAA S/P endograft Brief History of Present Illness: 65yo M, PMH: CKD5, HTN, HLD, COPD, GERD, AAA s/p repair with stent presented to ED For near syncope/hypotension. He reported several episodes over the past 1-2 weeks, mostly associated after standing up / getting up from bending forward. He denies chest pain, palpitations, headaches. Workup in ED was rather unremarkable except for incidental pulmonary nodule, CT abd/pelvis noted bladder wall thickening, polycystic kidney disease, and diverticulosis without diverticulitis. BP was reported to be in th 70s systolic by EMS on scene but improved in ED. He was noted to have bradycardia in 40s in the ED. Hospital Course: His home coreg was held and he was given gentle IVF hydration. He was initially noted to have +orthostatic vital signs, which improved/resolved with IVF and holding his home anti-hypertensives. Cardiology and Nephrology were consulted. Recommended to decrease Coreg dose (to 6.25mg BID), and nephrology also recommended holding Cardura for the time being given his hypotension and near- syncope. He was advised to record BP daily at home and to call PCP or Dr. Velasquez if BP is elevated. Otherwise, he is scheduled to f/u with Dr. Velasquez next week, and is already scheduled for stress test next week in [place] as well (part of renal transplant evaluation). Vital Signs/Physical Exam: Physical Exam General: Alert, In no apparent distress, Oriented x3 HEENT: Atraumatic, PERRLA, Mucous membr. moist/pink Neck: Supple, 2+ carotid pulse no bruit, No LAD Respiratory: Clear to auscultation bilaterally, Normal air movement Cardiovascular: Regular rate/rhythm, Normal S1 S2 Gastrointestinal: soft, Normal bowel sounds, No tenderness Musculoskeletal: No tenderness Integumentary: No rashes Neurological: Normal speech, Normal strength at 5/5 x4 extr, Normal affect Temp Pulse Resp BP Pulse Ox 97.6 F 51 16 182/77 H 95 05/29/20 08:00 05/29/20 17:25 05/29/20 12:39 05/29/20 17:25 05/29/20 12:39 Laboratory Data at Discharge: WBC 7.40 K/uL (4.3-10.9) 05/29/20 05:46 Hgb 10.6 g/dL (13.6-17.9) L 05/29/20 05:46 Hct 32.3 % (39.6-49.0) L 05/29/20 05:46 Plt Count 172 K/uL (152-406) 05/29/20 05:46 PT 12.2 SECONDS (9.5-12.5) 05/28/20 17:05 INR 1.06 05/28/20 17:05 Sodium 144 mmol/L (136-145) 05/29/20 05:46 Potassium 3.8 mmol/L (3.5-5.1) 05/29/20 05:46 BUN 53 mg/dL (7-18) H 05/29/20 05:46 Creatinine 5.80 mg/dL (0.55-1.3) H* 05/29/20 05:46 Glucose 90 mg/dL (74-106) 05/29/20 05:46 Magnesium 2.0 mg/dL (1.8-2.4) 05/29/20 05:46 Total Bilirubin 0.2 mg/dL (0.2-1.0) 05/29/20 05:46 AST 10 U/L (15-37) L 05/29/20 05:46 ALT 13 U/L (12-78) 05/29/20 05:46 Alkaline Phosphatase 43 U/L (45-117) L 05/29/20 05:46 Troponin I < 0.02 ng/mL (0.0-0.045) 05/29/20 05:46 Home Medications: RX: Albuterol Inhaler [Ventolin Inhaler*] 2 aero IN 1X 05/29/20 RX: Aspirin [Aspirin EC 81 MG] 81 mg PO DAILY 05/29/20 RX: Atorvastatin Calcium [Lipitor*] 10 mg PO BEDTIME 05/29/20 RX: Calcitrol [Rocaltrol*] 0.25 mcg PO Q48H 30 Days #15 cap 05/29/20 RX: carvediloL [Coreg*] 6.25 mg PO BID 30 Days #60 tab 05/29/20 New Medications: RX: carvediloL [Coreg*] 6.25 mg PO BID 30 Days #60 tab RX: Calcitrol [Rocaltrol*] 0.25 mcg PO Q48H 30 Days #15 cap Physician Discharge Instructions: You were found to have low blood pressure and slow heart rate. Your blood pressure dropped lower when sitting or standing up, consistent with orthostatic hypotension. This is what likely contributed to your dizziness/lightheadedness. Please wait 20-30seconds after sitting/standing before moving on to prevent any falling / passing out. Dr Velasquez recommended stopping you Cardura and decreased your Carvedilol (Coreg) to help with the slow heart rate and low blood pressure. Please check your blood pressure daily at home and call Dr. Velasquez's office / your PCP for further instructions/adjustments. Need to balance your high blood pressure with your symptoms of passing out. Do not take Carvedilol if your heart rate is <50 beats per minute. Follow up with Dr. Velasquez as previously scheduled. Diet: Renal Activity: Ad manjit Followup: NONE,NONE [Primary Care Provider] - Time spent managing pt's care (in minutes): 40
[2020-05-29] MEDS ORDERED: ATORVASTATIN 10 MG TAB PO SCH (21:00)
[2020-05-30] MEDS ORDERED: PANTOPRAZOLE 40 MG INJ IVP SCH (09:00)
--- NOTE | 2020-05-31 19:32 | CON ---
Date of Consultation: 05/29/2020 Reason For Consultation: Near-syncope, bradycardia, shortness of breath, and weakness. History Of Present Illness: Mr. Jimenes is a 65-year-old male. I have known him from the past. He h as a history of endograft of the abdominal aorta for an aneurysm. He has mild coronary artery diseas e in 2018. Has a history of dyslipidemia, polycystic kidney disease, hypertension, diabetes, and CYLINDRICAL MIXER D. Came in with an episode of near-syncope, low heart rate, shortness of breath, and weakness. Junior tid is pending. Echocardiogram is pending. He is asymptomatic now. Past Medical History: As stated above. Medications: Listed by Dr. Ya. Review of Systems: Negative. Social History: Negative. Family History: Negative. Physical Examination: Vital Signs: Stable, afebrile. HEENT: Negative. Neck: Supple with no bruit. Chest: Clear. Cardiac: Revealed a regular rhythm and rate with an S4 gallops. No murmurs or rubs. Abdomen: Benign. Extremities: Revealed no clubbing, cyanosis, or edema. Diagnostic Data: Available to me with a creatinine of 5.8. His chest x-ray was negative. EKG showe d sinus bradycardia with nonspecific changes. BNP was 913. Impression And Plan: Near-syncope, bradycardia, shortness of breath, and weakness. This certainly c ould be related to his renal failure, could also be related to carvedilol. I will cut down his carve dilol dose in half. I agree with the echocardiogram and carotid both of which are pending. We will see what those show before making further decisions. Apparently, he is not on dialysis yet and there is a plan I think for him to have a workup for renal transplant. 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 I would definitely send him home on a lower dose of Coreg. YANET/MODL Voice ID: [id number] Report ID: [id number]
== END 2020-05-29 18:42 | disposition home or self-care (01) ==
LOC: ER 16:42 → ERHOLD 20:24 → 2ND 21:27
PROVIDERS: ADMIT Hospitalist; ATTEND Hospitalist
DX: R55 Syncope and collapse (principal); R00.1 Bradycardia, unspecified; I12.9 Hypertensive chronic kidney disease with stage 1 through stage 4 chronic kidney disease, or unspecified chronic kidney disease; N18.5 Chronic kidney disease, stage 5; Z20.822 Contact with and (suspected) exposure to COVID-19; E78.5 Hyperlipidemia, unspecified; J44.9 Chronic obstructive pulmonary disease, unspecified; K21.9 Gastro-esophageal reflux disease without esophagitis; R94.31 Abnormal electrocardiogram [ECG] [EKG]; E11.22 Type 2 diabetes mellitus with diabetic chronic kidney disease; E11.40 Type 2 diabetes mellitus with diabetic neuropathy, unspecified; Q61.3 Polycystic kidney, unspecified; Z87.891 Personal history of nicotine dependence; N25.81 Secondary hyperparathyroidism of renal origin
CPT/HCPCS: 96365; 96361; 93005; 93306; 85025 ×2; 80048; 36415; 83735 ×2; 85610; 80076; 84443; 84484 ×3; 84439; 80053; 83880; 74176; 71045; 93880; 93978; 97161; 99285; U0003; J2765; J1644 ×3; J0696; J7030 ×2; 81003; 81015; G0378

== ENCOUNTER 2020-06-29 07:56 | Day surgery (SDC) | payer OTHER ==
[2020-06-29] MEDS ORDERED: Ringers Lactate 0 ML IV ONE (08:58)
[2020-06-29] MEDS ORDERED: CEFAZOLIN/SWI 1gm 1 GM/10 ML SYR ONE (08:59)
[2020-06-29] MEDS ORDERED: NA CHLORIDE 0.9% 1,000 ML ONE (09:02)
[2020-06-29] MEDS ORDERED: FENTANYL CITR 100 MCG/2 ML IV ONE (09:38)
[2020-06-29] MEDS ORDERED: BUPIVACAINE 0.25% PF 30 ML VIAL ONE (09:43)
[2020-06-29] MEDS ORDERED: LIDOCAINE 1% MPF 5 ML VIAL ONE (10:13)
[2020-06-29] MEDS ORDERED: ROCURONIUM 50 MG/5 ML VIAL IV ONE (10:13)
[2020-06-29] MEDS ORDERED: propofoL 200 MG/20 ML VIAL IV ONE (10:13)
[2020-06-29] MEDS ORDERED: EPHEDRINE SULF 50 MG/ML VIAL ONE (10:40)
--- NOTE | 2020-06-29 10:52 | P.OP ---
Preoperative diagnosis: End Stage Renal Disease Postoperative diagnosis: End Stage Renal Disease Primary procedure: Laparoscopic Peritoneal Dialysis Catheter Placement Anesthesia: GETA + Local Estimated blood loss: <1cc Specimen: none Findings: benign appearing liver cysts Complications: None Drain(s): Other (Ech[place]ria Double Cuffed Peritoneal Dialysis) Transferred to: Recovery Room Condition: Good
[2020-06-29] MEDS ORDERED: NEOSTIGMINE 1 MG/ML -5 ML ONE (11:03)
[2020-06-29] MEDS ORDERED: ONDANSETRON 4 MG/2 ML VIAL ONE (11:03)
[2020-06-29] MEDS ORDERED: GLYCOPYRROLATE 0.2 MG/ML SYR ONE ×2 (11:03)
[2020-06-29] MEDS ORDERED: HYDROCODONE/APAP 5/325 MG TAB ONE (12:10)
[2020-06-29 13:23] VITALS: BP 156/68; TEMP 96.8; O2SAT 98
--- NOTE | 2020-06-29 21:11 | OP ---
Date of Procedure: 06/29/2020 Surgeon: Nicko Gay MD, Preoperative Diagnosis: End-stage renal disease. Postoperative Diagnosis: End-stage renal disease. Procedure Performed: Laparoscopic peritoneal dialysis catheter placement. Anesthesia: General endotracheal plus local with 0.25% Marcaine. Estimated Blood Loss: 1 cc. Specimen: None. Findings: Benign-appearing liver cyst multiple. Complications: None. Implants/drain: Merit double cuffed peritoneal dialysis catheter. Disposition: The patient was transferred to recovery room in good condition. Procedure In Detail: After informed consent was obtained, the patient was brought to the operating r oom. I used a Stencil set to josué the patient and provided by Xtract peritoneal dialysis catheter set after marking it with the exit site on the right upper abdomen. The patient was then prepped and dr aped in the usual sterile fashion after adequate anesthesia was achieved. I anesthetized the area of the left upper quadrant with a 0.25% Marcaine. I inserted a 5 mm 0-degree optical trocar into the a bdomen without evidence of complication. Insufflation was obtained to 15 mmHg at this time. There w as no injury to vital structures upon entry to the abdomen. The abdomen was inspected at this point, found to have no significant intraperitoneal adhesions allowing for good landing of the peritoneal d ialysis catheter. I then inspected the abdomen and found that the liver had multiple benign-appearin g cysts on both lobes including the caudate lobe and opted to continue the procedure at this point, a s there was no other concern at this point. I then introduced the introducer sheath at a 45-degree a ngle toward the coccyx ultimately leaving the sheath in place and removed the introducer cannula. I then dilated up the tract and introduced the Xtract peritoneal dialysis catheter with to th e right following the stripe posteriorly at this point with good placement of the peritoneal dialysis catheter. I then placed the cuff into the rectus muscle. At this point, the initial cuff and I bro ught the tunneling device through a separate stab incision out in the right upper quadrant and miri t the catheter through the tunneling tract without evidence of complication. I then attached the met al cap on the end and flushed quite easily under direct visualization and withdrew fluid quite easily . Catheter was quite functional at this point and as such I then decompressed the abdomen while mae ving the trocar under direct visualization without evidence of complication. I then copiously irriga nicko all skin incisions and closed the skin with interrupted 3-0 Vicryl suture and closed the skin wit h a 4-0 Monocryl in a running fashion. Dermabond was placed over top. The patient tolerated the pro cedure well without evidence of complication and transferred to PACU in good condition. All counts w ere correct at the end of the case. TERE/LB Voice ID: [id number] Report ID: [id number]
== END 2020-06-29 12:48 | disposition home or self-care (01) ==
LOC: OR 07:56
PROVIDERS: ATTEND Surgery
PROC: 0WHG43Z Insertion of Infusion Device into Peritoneal Cavity, Percutaneous Endoscopic Approach (ICD-10-PCS; principal; 2020-06-29 09:30)
DX: N18.6 End stage renal disease (principal); Z20.822 Contact with and (suspected) exposure to COVID-19
CPT/HCPCS: 49324; U0003; J2704; J2710; J0690; J7030; J2405; J3010; J7120

== ENCOUNTER 2020-07-09 09:40 | Day surgery (SDC) | payer OTHER ==
[2020-07-09 10:32] LABS: Potassium 3.6 mmol/L (3.5-5.1)
[2020-07-09] MEDS ORDERED: MIDAZOLAM HCL 2 MG/2 ML INJ ONE ×2 (10:34→11:37)
[2020-07-09] MEDS ORDERED: FENTANYL CITR 100 MCG/2 ML ONE ×2 (10:34→11:37)
[2020-07-09] MEDS ORDERED: propofoL 200 MG/20 ML VIAL IV ONE ×3 (10:34→11:36)
[2020-07-09] MEDS ORDERED: LIDOCAINE 1% MPF 5 ML VIAL ONE ×2 (10:34→11:37)
[2020-07-09] MEDS ORDERED: Ringers Lactate 1,000 ML IV ONE (10:42)
[2020-07-09] MEDS ORDERED: CEFAZOLIN/SWI 2gm 2 GM/20 ML SYR ONE (10:42)
[2020-07-09] MEDS ORDERED: NS 0.9% VIAL 0 ML ONE (10:54)
[2020-07-09] MEDS ORDERED: HEPARIN 5000 UNIT/ML 1 ML VIAL ONE (10:55)
[2020-07-09] MEDS ORDERED: BUPIVACAINE 0.25% PF 30 ML VIAL ONE (11:20)
[2020-07-09] MEDS ORDERED: ROCURONIUM 50 MG/5 ML VIAL IV ONE (11:42)
--- NOTE | 2020-07-09 12:14 | P.OP ---
Preoperative diagnosis: Peritoneal Dialysis Catheter Dysfunction Postoperative diagnosis: Fibrinous Clog to Tubing Primary procedure: Exploratory Laparoscopy Secondary procedure: Revision of Peritoneal Dialyis Catheter - flusing Anesthesia: GETA + Local Estimated blood loss: <1cc Specimen: none Findings: fibrinous clog in tube, flushed Complications: None Implants: PD cath remained in place. Transferred to: Recovery Room Condition: Good
[2020-07-09] MEDS ORDERED: ONDANSETRON 4 MG/2 ML VIAL ONE (12:30)
[2020-07-09] MEDS ORDERED: GLYCOPYRROLATE 0.2 MG/ML SYR ONE (12:30)
[2020-07-09] MEDS ORDERED: NEOSTIGMINE 1 MG/ML -5 ML ONE (12:31)
[2020-07-09] MEDS ORDERED: NA CHLORIDE 0.9% 1,000 ML ONE (12:34)
--- NOTE | 2020-07-09 12:50 | OP ---
Date of Procedure: 07/09/2020 Surgeon: Robert Gay MD, Preoperative Diagnosis: Peritoneal dialysis catheter dysfunction. Postoperative Diagnosis: Fibrinous clog to peritoneal dialysis tubing. Procedures: 1.Exploratory laparoscopy. 2.Revision of peritoneal dialysis catheter with flushing. Anesthesia: General endotracheal plus local with 0.25% Marcaine. Estimated Blood Loss: Less than 1 mL. Specimen: None. Findings: Fibrinous clog in the tube, which was flushed with injectable saline. Complications: None. Implants: The original peritoneal dialysis catheter remained in place after removing the fibrinous c log. It was brought out through the lateral trocar and tubing worked perfectly. Disposition: The patient was transferred to recovery room in good condition. Procedure In Detail: After informed consent was obtained, the patient was brought to the operating r oom, prepped and draped in the usual sterile fashion after adequate anesthesia achieved. An area of the epigastrium was anesthetized with 0.25% Marcaine and sharply incised. A 5 mm 0-degree optical tr ocar was introduced in the abdomen without evidence of complication. Insufflation was obtained to 15 mmHg at this time. There was no injury to vital structures upon entry to the abdomen. The peritone al dialysis catheter was inspected at this point and found to be in the normal anatomic position. I grasped, elevated and brought the peritoneal dialysis catheter up and visual field by flipping the tu be with a camera and saw that there was material within the tube. At this point, I opted to place an additional trocar in the left lateral abdomen. This was similarly anesthetized and sharply incised. A 5 mm trocar was introduced in the abdomen without evidence of complication. At this point, I gra sped the tube with a ratcheted grasper and elevated and flushed injectable saline through this tube. There was difficulty flushing the tube and at this point, I put pressure behind the tube and flushed it aggressively and some fibrinous material came out at the end of the tubing. At this point, flush ing began to work and I grasped the fibrinous clog at the end and pulled out the distal end of the tu be and pulled out the lateral trocar. At this point, I flushed it multiple times with sterile saline and flushed quite easily. I was able to get back and withdraw air and fluid easily at this point. At this point, the procedure was considered complete. I then ensured the peritoneal dialysis cathete r was back in the normal anatomic position and I desufflated the abdomen under direct visualization w ithout evidence of complication after this was completed desufflated. The remaining trocars were rem eduardo. All skin incisions copiously irrigated and closed with a 4-0 Monocryl in a running fashion. D ermabond placed over top. The patient tolerated the procedure well without evidence of complication and transferred to PACU in good condition. All counts were correct at the end of the case. TERE/LB Voice ID: [id number] Report ID: [id number]
[2020-07-09 12:56] VITALS: TEMP 97.2
[2020-07-09 14:26] VITALS: BP 161/71; O2SAT 100
== END 2020-07-09 14:20 | disposition home or self-care (01) ==
LOC: OR 09:40
PROVIDERS: ATTEND Surgery
PROC: 0JWT33Z Revision of Infusion Device in Trunk Subcutaneous Tissue and Fascia, Percutaneous Approach (ICD-10-PCS; principal; 2020-07-09 11:30)
DX: T85.691A Other mechanical complication of intraperitoneal dialysis catheter, initial encounter (principal); N18.6 End stage renal disease; Z20.822 Contact with and (suspected) exposure to COVID-19
CPT/HCPCS: 80048; 36415; 49325; U0003; J2704 ×2; J2250; J3010; J1644 ×2; J2710; J0690; J7120; J7030; J2405

== ENCOUNTER 2020-09-30 06:15 | Emergency (ER) | payer OTHER ==
--- OUTSIDE RECORDS SUMMARY | 2020-09-30 06:18 | XMS REPORT | Continuity of Care Document ---
:1955 Author Organization [facility] t Address [address] [place] [address] Care Team Providers Name Role Phone Beata Cool MD Primary Care Physician SHARONA Attending Clinician Unavailable Merlyn Oneill MD Attending Clinician Beata Cool MD Attending Clinician Macey Nelson MD Attending Clinician Carlos Del Valle DO Attending Clinician Brian ARCOS Attending Clinician Mat ARCOS Attending Clinician MD MAT Attending Clinician Unavailable Gregg Wetzel MD Attending Clinician Leidy [employer]OTE[employer] FORESTER Attending Clinician MD LESLIE E. Attending Clinician Unavailable Lexie Mccain MA Attending Clinician Unavailable Kenia ARCOS Attending Clinician Kady Tilley MD Attending Clinician Sariah ARCOS Attending Clinician MD BEATA COOL Attending Clinician Unavailable SHARONA Attending Clinician Unavailable ORGANTRANSPLANT Attending Clinician Unavailable MOHAMUD Attending Clinician Unavailable ANJELICA Attending Clinician Unavailable TRAVON Admitting Clinician Unavailable BRIAN Admitting Clinician Unavailable MD BIRAN Admitting Clinician Unavailable LESLIE Admitting Clinician Unavailable MD LESLIE E. Admitting Clinician Unavailable MD BEATA COOL Admitting Clinician Unavailable Payers Payer Name Policy Type Policy Effective Date Expiration Date Sour ce Number MEDICAREMEDICARE PART [id number] 2017 Me taylerodist A AND 00:00:00 [facility] [id number] 2017- SONJA AnneMedicare KELVIN [id number] 2017 [facility] HMO,POS,EPO, 00:00:00 [facility] MC/[id number] 18-PresentHMO Problems Condition Condition Condition Status Onset Resolution Last Treating Co mments Source Name Details Category Date Date Treatment Clinician Date Weakness Weakness Disease Active Metho di 09-19 st 00:00: Hospita 00 l Malpositio Malpositio Disease Active M ethodi n of n of 07-24 peritoneal peritoneal 00:00: Ho spita dialysis dialysis 00 l catheter catheter HTN HTN Disease Active Methodi (hypertens (hypertens 07-10 st ion) ion) 00:00: Hospita 00 l HLD HLD Disease Active Methodi (hyperlipi (hyperlipi 07-10 demia) demia) 00:00: Hospita 00 l Anemia of Anemia of Disease Active Met hodi chronic chronic 07-10 st disease disease 00:00: Hospita 00 l History of History of Problem Resolve [facility] chronic chronic d [place] of obstruct[place] lung Physici disease disease ans History of History of Problem Resolve Univers essential essential d ity of hypertens[place] Physici ans History of History of Problem Resolve Univers hyperlipid hyperlipid d it y of [place] Physici ans Prophylact Prophylact Problem Active U [...] Univers (chronic (chronic ity of kidney kidney [place] disease) disease) Physic i ans Prostate Prostate [...] Diagnosis Comments Start Date Stop Date Source Natural father Kidney disease Method [facility] Natural father Polycystic kidney Met [facility] disease Natural mother No Known Problems Met [facility] Father Family history of [facility] [place] End stage renal Physician s disease Father Family history of [facility] [place] Kidney transplant Physici ans recipient Father Family history of [facility] [place] Polycystic kidney Physici ans Social History Social Habit Start Date Stop Date Quantity Comments Source History of tobacco Current smoker [facility] Exposure to Not sure [facility] SARS-CoV-2 (event) Hospit al Cigarettes smoked 2020-09-20 2020-09-[address] current (pack per 00:00:00 00:00:00 [facility] l ) - Reported Cigarette 2020-09-20 2020-09-20 [facility] pack-years 00:00:00 00:00:00 Hospital Tobacco use and 2020-09-20 2020-09-20 Never used [facility] exposure 00:00:00 00:00:00 Hospital Alcohol intake 2020-09-20 2020-09-20 Current drinker Metho dist 00:00:00 00:00:00 of alcohol Hospital (finding) Alcohol Comment 2020-07-20 2020-07-20 less than [facility] 00:00:00 00:00:00 monthly Hospital Sex Assigned At [birth year] [facility] 00:00:00 00:00:00 Hospital Smoking Status Start Date Stop Date Source Former smoker 2020-09-20 00:00:00 2020-09-20 00:00:00 [facility] Medications Ordered Filled Start Stop Current Ordering Indication Dosage Frequency Signature Comments Components Source Medication Medication Date Date Medication? Clinician (SIG) Name Name allopurinoL Yes 300mg QD Take 300 M ethodi (ZYLOPRIM) 7-[address] 300 MG 22:35: mouth Hospita tablet 26 daily. l aspirin Yes 81mg QD Take 81 mg Meth sarah (ECOTRIN) 7-[address] 81 MG 22:35: daily. Hospita enteric 26 l coated tablet calcitrioL Yes .25ug Q2D Take 0.25 M ethodi (ROCALTROL) 7-[address] 0.25 MCG 22:35: mouth Hospita capsule 26 every l other day. carvediloL Yes 12.5mg Q.5D Take 12.5 Methodi (COREG) 7-[address] 12.5 MG 22:35: mouth 2 Hospita tablet 26 (two) l times a day with meals. ergocalcife Yes [id number] Q30D Take Meth sarah rol 7-[address] (VITAMIN 22:35: Units by Hospi ta D2) 50,000 26 mouth l unit every 30 capsule (thirty) days. 15 of every month hydrALAZINE Yes 10mg Q.5D Take 10 mg Methodi (APRESOLINE 7-[address] ) 10 MG 22:35: (two) Hospita tablet 26 times a l day. magnesium Yes 400mg QD Take 400 Met hodi oxide 7-[address] (MAG-OX) 22:35: mouth Hospita 400 mg 26 every l (241.3 mg morning. magnesium) tablet albuterol Yes 2.5mg Q.5D Take 2.5 Met hodi (ACCUNEB) 7-[address] 2.5 mg /3 22:35: nebulizati Ho spita mL (0.083 26 on 2 (two) l %) times a nebulizer day as solution needed for wheezing or shortness of breath. docusate Yes 100mg Q.5D Take 100 Meth sarah sodium 7-[address] (COLACE) 22:35: mouth 2 Hospit a 100 MG 26 (two) l capsule times a day. acetaminoph Yes [id number] 1{tbl} Q6H Take 1 M ethodi en-codeine - tablet by st (TYLENOL 22:35: mouth Hospita WITH 26 every 6 l CODEINE #3) (six) 300-30 mg hours as per tablet needed for moderate pain .acute pain. omeprazole Yes 20mg QD Take 20 mg M ethodi (PriLOSEC) 09-[address] 20 MG 22:35: daily. Hospita capsule 26 l albuterol Yes 2{puff} Inhale 2 M ethodi (PROAIR 7-[address] HFA) 90 22:35: needed for Hosp live mcg/actuati 26 wheezing l on inhaler or shortness of breath. sodium Yes 650mg QD Take 650 Method i bicarbonate 7- mg by st 650 mg 22:35: mouth Hospita tablet 26 daily. l furosemide Yes 40mg QD Take 40 mg M ethodi (LASIX) 40 09-[address] mg tablet 22:35: every Hospita 26 morning. l tamsulosin 2020- Yes .4mg QD Take 1 Meth sarah (FLOMAX) 09-20-[address] 0.4 mg 00:00: 04:59 (0.4 mg Hospita capsule 00 :00 total) by l mouth daily with dinner for 30 days. methylPREDN 2020- No follow Met hodi ISolone 09-[address] (Medrol, 00:00: 04:59 directions Mj Lemus,) 4 mg 00 :00 l tablet atorvastati 2020- No 20mg QD Take 20 mg Methodi n (LIPITOR) 09-19 07-[address] 20 mg 21:24: 00:00 daily. Hospita tablet 39 :00 Take 1 tab l by mouth daily tamsulosin 2020- No .4mg QD Take 0.4 Me thodi (FLOMAX) 09-19 07-[address] 0.4 mg 21:24: 00:00 mouth Hospita capsule 34 :00 daily with l dinner. Take 1 capsule by mouth daily famotidine 2020- No 20mg Q.5D Take 20 mg Methodi (PEPCID) 20 7-21 07-21 by mouth 2 s t MG tablet 21:24: 00:00 (two) Hospit a 30 :00 times a l day. Take 1 tab by mouth twice a day ciprofloxac 2020- No ciprofloxa Methodi in HCl 07-25-[address] (CIPRO) 250 17:16: 00:00 tablet Hos nehemiah MG tablet 07 :00 l azithromyci 2020- No 500mg QD Take 1 Me thodi n 07-25-[address] (Zithromax) 00:00: 04:59 (500 mg Ho spita 500 MG 00 :00 total) by l tablet mouth daily for 3 days. tadalafiL No 5mg Q24H Take 5 mg Me thodi (CIALIS) 5 07-24-[address] MG tablet 08:35: 00:00 daily as Hos nehemiah 55 :00 needed for l erectile dysfunctio n. amLODIPine 2020- No 5mg QD Take 1 Meth sarah (NORVASC) 5 -13 08-14 tablet (5 st mg tablet 00:00: 04:59 mg total) Ho spita 00 :00 by mouth l daily for 30 days. sodium No 650mg QD Take 1 Methodi bicarbonate 07-13-[address] 650 mg 00:00: 04:59 (650 mg Hospita tablet 00 :00 total) by l mouth daily for 30 days. polyethylen 2020- No 17g Q24H Take 17 g Methodi e glycol 07-12- by mouth st (MIRALAX) 00:00: 04:59 daily as Hos nehemiah 17 gram 00 :00 needed for l packet constipati on for up to 30 days. sennosides- 2020- No 1{tbl} Q.5D Take 1 M ethodi docusate 07-12-[address] sodium 00:00: 00:00 mouth 2 Hospita (SENOKOT-S) 00 :00 (two) l 8.6-50 mg times a per tablet day as needed for constipati on for up to 30 days. acetaminoph 2020- No [id number] 1{tbl} Q6H Take 1 Methodi en-codeine 5-13 05-[address] (TYLENOL 00:00: 04:59 mouth Hospita WITH 00 :00 every 6 l CODEINE #3) (six) 300-30 mg hours as per tablet needed for moderate pain or severe pain for up to 7 days .acute pain. Tadalafil 5 Tadalafil 5 Yes ROSELINE TABOR 1 TAKE 1 Univers MG Oral MG Oral 8-24 M.D. TABLET ity of Tablet Tablet 00:00: BEDTIME 00 Physici ans Tadalafil Tadalafil 0 Yes ROSELINE TABOR TAKE 1 Univers 20 MG Oral 20 MG Oral 8-24 M.D. TABLET 1 ity of Tablet Tablet 00:00: HOUR [place] 00 BEFORE Physici ACTIVITY ans NEEDED. Aspirin 81 Aspirin 81 Yes Uni vers MG TABS MG TABS ity of [place] Physici ans Allopurinol Allopurinol Yes U nivers 300 MG Oral 300 MG Oral i ty of Tablet Tablet [place] Physici ans Magnesium Magnesium Yes Unive rs [...] Yes Uni vers CAPS CAPS ity of [place] Physici ans amLODIPine amLODIPine Yes Uni vers [...] Oral Aiden as Tablet Tablet Physici ans Immunizations Ordered Immunization Filled Immunization Date Status Commen ts Source Name Name [facility] COVID-19 MRNA 2020-04-25 Completed Meth odist VACCINATION 00:00:00 [facility] PFIZER COVID-19 MRNA 2020-04-04 Completed Meth odist VACCINATION 00:00:00 Hospital Vital Signs Vital Name Observation Time Observation Value Comments Source Oxygen saturation 2020-09-20 96 /min [facility] in Arterial blood 21:18:00 Hospital by Pulse oximetry Heart rate 2020-09-20 69 /min [facility] 21:16:00 Hospital Respiratory rate 2020-09-20 18 /min [facility] 21:16:00 Hospital Diastolic blood 2020-09-20 54 mm[Hg] [facility] pressure 20:34:00 Hospital Systolic blood 2020-09-20 111 mm[Hg] [facility] pressure 20:34:00 Hospital Body temperature 2020-09-20 37.17 Zari [facility] 16:58:17 Hospital Body weight 2020-09-20 109.272 kg [facility] 09:42:21 [facility] BMI 2020-09-20 30.93 kg/m2 [facility] 09:42:21 Hospital Body height 2020-07-20 188 cm [facility] 12:39:00 Hospital Heart Rate 2020-04-23 56 /min [facility] 17:10:00 Brachial [place] Physician s Artery; Systolic blood 2020-04-23 186 mm[Hg] Location: [facility] 17:10:00 Position: [place] [facility] S[facility] Diastolic blood 2020-04-23 82 mm[Hg] [facility] 17:10:[facility] Position: [place] [facility] Body height 2020-04-23 74 [in_us] [facility] 17:10:00 [place] [facility] Weight 2020-04-23 240 [lb_av] University 17:10:00 [place] [facility] Body mass index 2020-04-23 30.81 kg/m2 University o f (BMI) [Ratio] 17:10:00 [place] Physicia ns Body temperature 2020-04-23 97.4 [degF] Method: [facility] 17:10:00 Temporal [place] [facility] s Systolic blood 2019-10-24 136 mm[Hg] Location: [facility] pressure 17:12:00 Position: [place] [facility] Sitting Diastolic blood 2019-10-24 71 mm[Hg] Location: [facility] 17:12:00 Position: [place] [facility] Sitting Body height 2019-10-24 74 [in_us] [facility] 17:12:00 [place] [facility] Weight 2019-10-24 250 [lb_av] [facility] 17:12:00 [place] Phys[facility] s Body mass index 2019-10-24 32.1 kg/m2 [facility] f (BMI) [Ratio] 17:12:00 [place] Physicia ns Heart Rate 2019-10-24 60 /min Location: L [facility] 17:12: Brachial [place] Physician s Artery; Body temperature 2019-10-24 97.8 [degF] Method: [facility] 17:12:00 Temporal [place] Physician s Procedures Procedure Date / Time Performing Clinician Source Performed HEPATITIS B SURFACE 2020-09-20 06:49:00 Travon [facility] ANTIBODY HEPATITIS B SURFACE 2020-09-20 06:49:00 Travon [facility] ANTIGEN AEROBIC CULTURE 2020-09-19 23:57:00 [facility] ANAEROBIC CULTURE 2020-09-19 23:57:00 [facility] GRAM STAIN 2020-09-19 23:57:00 Vivian [facility] ospital CELL COUNT AND 2020-09-19 23:56:00 [facility] DIFFERENTIAL, BODY FLUID HEPATITIS B SURFACE AB, 2020-09-19 22:25:00 Melvina Park [facility] QUANTITATIVE TROPONIN 2020-09-19 22:25:00 goyoMaryan [facility] CT LUMBAR SPINE WO 2020-09-19 18:46:23 [facility]ST 1 VW PORTABLE 2020-09-19 18:00:32 Maryan Oneill [facility] ECG 12-LEAD 2020-09-19 17:57:30 [facility] HC COMPLETE BLD COUNT 2020-09-19 17:44:00 Maryan Oneill [facility] W/AUTO DIFF COMPREHENSIVE METABOLIC 2020-09-19 17:44:00 Maryan Oneill [facility] PANEL CREATINE KINASE, TOTAL 2020-09-19 17:44:00 [facility] TROPONIN 2020-09-19 17:44:00 [facility] LIPASE LEVEL 2020-09-19 17:44:00 [facility] B NATRIURETIC PEPTIDE 2020-09-19 17:44:00 [facility] ESTIMATED GFR 2020-09-19 17:44:00 [facility] ECG ED PRELIMINARY 2020-09-19 17:27:13 [facility] INTERPRETATION HC COMPLETE BLD COUNT 2020-07-25 08:23:00 [facility] W/AUTO DIFF PROTHROMBIN TIME WITH INR 2020-07-25 08:23:00 [facility] COMPREHENSIVE METABOLIC 2020-07-25 08:23:00 [facility] PANEL MAGNESIUM LEVEL 2020-07-25 08:23:00 [facility] spital PHOSPHORUS LEVEL 2020-07-25 08:23:00 [facility] ospital ESTIMATED GFR 2020-07-25 08:23:00 [facility] spital CT ABDOMEN PELVIS WO 2020-07-25 01:22:52 [facility] CONTRAST COVID-19 QUALITATIVE 2020-07-24 07:34:00 [facility] RT-PCR Carlos URINE CULTURE 2020-07-24 06:38:00 [facility] Carlos URINALYSIS SCREEN AND 2020-07-24 06:38:00 [facility] MICROSCOPY, WITH REFLEX Carlos TO CULTURE COMPREHENSIVE METABOLIC 2020-07-24 06:35:00 [facility] PANEL Carlos HC COMPLETE BLD COUNT 2020-07-24 06:35:00 [facility] W/AUTO DIFF Carlos PROTHROMBIN TIME WITH INR 2020-07-24 06:35:00 [facility] Carlos PARTIAL THROMBOPLASTIN 2020-07-24 06:35:00 [facility] TIME (PTT) Carlos ESTIMATED GFR 2020-07-24 06:35:00 [facility] AN ELECTIVE 2020-07-23 16:20:31 [facility] ENDOTRACHEAL AIRWAY REMOVAL, CATHETER, 2020-07-23 16:03:00 [facility] DIALYSIS, PERITONEAL E. ESTIMATED GFR 2020-07-23 13:54:00 [facility] E. POC PANEL 2020-07-23 13:54:00 [facility] E. ESTIMATED GFR 2020-07-23 13:43:00 [facility] E. POC PANEL 2020-07-23 13:43:00 [facility] E. COMPREHENSIVE METABOLIC 2020-07-23 13:30:00 [facility] PANEL ABO AND RH CONFIRMATION 2020-07-23 13:30:00 [facility] E. ESTIMATED GFR 2020-07-23 13:30:00 [facility] COVID-19 QUALITATIVE 2020-07-20 13:14:00 [facility] RT-PCR E. TYPE AND SCREEN 2020-07-20 13:14:00 [facility] ospital HC COMPLETE BLD COUNT 2020-07-20 13:14:00 [facility] W/AUTO DIFF HEMOGLOBIN A1C 2020-07-20 13:14:00 [facility] ospital BASIC METABOLIC PANEL 2020-07-12 09:00:00 [facility] E. MAGNESIUM LEVEL 2020-07-12 09:00:00 [facility] E. PHOSPHORUS LEVEL 2020-07-12 09:00:00 [facility] E. HC COMPLETE BLD COUNT 2020-07-12 09:00:00 [facility] W/AUTO DIFF E. PARATHYROID HORMONE 2020-07-12 09:00:00 [facility] E. VITAMIN D 25 HYDROXY 2020-07-12 09:00:00 [facility] LEVEL E. ESTIMATED GFR 2020-07-12 09:00:00 [facility] E. DE AN ELECTIVE 2020-07-12 01:07:00 Elvira [facility] ENDOTRACHEAL AIRWAY [place] LAPAROSCOPIC REMOVAL OR 2020-07-11 22:54:00 [facility] REPOSITIONING OF E. PERITONEAL DIALYSIS CATHETER HC COMPLETE BLD COUNT 2020-07-11 10:12:00 [facility] W/AUTO DIFF COMPREHENSIVE METABOLIC 2020-07-11 10:12:00 [facility] PANEL MAGNESIUM LEVEL 2020-07-11 10:12:00 Mariajose Donato Ho spital Gargollo PHOSPHORUS LEVEL 2020-07-11 10:12:00 Mariajose Donato H ospital Gargollo ESTIMATED GFR 2020-07-11 10:12:00 [facility] XR ABDOMEN 1 VW 2020-07-11 00:50:58 [facility] E. COVID-19 QUALITATIVE 2020-07-10 19:54:00 [facility] RT-PCR XR CHEST 1 VW PORTABLE 2020-07-10 18:39:03 [facility] ECG ED PRELIMINARY 2020-07-10 18:35:21 [facility] INTERPRETATION ECG 12-LEAD 2020-07-10 18:12:03 [facility] HC COMPLETE BLD COUNT 2020-07-10 18:10:00 [facility] W/AUTO DIFF PROTHROMBIN TIME WITH INR 2020-07-10 18:10:00 [facility] PARTIAL THROMBOPLASTIN 2020-07-10 18:10:00 [facility] TIME (PTT) COMPREHENSIVE METABOLIC 2020-07-10 18:10:00 [facility] PANEL TROPONIN 2020-07-10 18:10:00 [facility] B NATRIURETIC PEPTIDE 2020-07-10 18:10:00 [facility] ESTIMATED GFR 2020-07-10 18:10:00 [facility] CREATINE KINASE, TOTAL 2020-07-10 18:10:00 [facility] ([facility]) CT Abdomen/Pelvis w/wo 2019-10-24 00:00:00 [facility] contrast [id number] Chest wo contrast 2019-10-24 00:00:00 [facility] [address] Physicians History of Abdominal [facility] aortic aneurysm repair Physician s Plan of Care Planned Activity Planned Date Details Comments Source Future Scheduled Test DIABETES: RETINAL EYE [facility] EXAM [code = DIABETES: RETINAL EYE EXAM] Future Scheduled Test DIABETIC FOOT EXAM [facility] [code = DIABETIC FOOT EXAM] Future Scheduled Test Hepatitis C screening [facility] (procedure) [code = 966134891] Future Scheduled Test COLONOSCOPY SCREENING [facility] [code = COLONOSCOPY SCREENING] Future Scheduled Test SHINGLES VACCINES (#1) [facility] [code = SHINGLES VACCINES (#1)] Future Scheduled Test Screening for malignant [facility] neoplasm of lung (procedure) [code = 361461102] Future Scheduled Test 65+ PNEUMOCOCCAL [facility] VACCINE (2 of 4 - PPSV23) [code = 65+ PNEUMOCOCCAL VACCINE (2 of 4 - PPSV23)] Future Scheduled Test INFLUENZA VACCINE [code [facility] = INFLUENZA VACCINE] Encounters Start End Encounter Admission Attending Care Care Encounter Source Date/Time Date/Time Type Type Clinicians Facility Department ID 2020-07-07 Outpatient ROSELINE TABOR [facility] [id number] [place] 03:13:18 Health 2018-06-23 Inpatient [facility] 10:22:21 2020-09-19 2020-09-20 Emergency ElmervaishnaviMaryan 1.2.840.1 [id number] Methodi 12:17:00 17:35:00 Jeremy Cool 94368.1.[address] 3.430.2.7 Hospit a .3.624228 l .8 2020-09-19 2020-09-20 Outpatient JEREMY COOL [facility] [id number] [place] 00:00:00 00:00:[address] 2020-09-19 2020-09-19 Travel 1.2.840.1 1.2.301.681 [id number] Methodi 00:00:00 00:00:[address] 3.430.2.7 0.2.7.3.698 Ho spita .3.554190 084.8 l .8 2020-08-30 2020-08-30 Outpatient [facility] 96[address] [facility] 11:00:00 11:00:00 2020-08-30 2020-08-30 Outpatient [facility] 9614 [facility] 11:00:00 11:00:00 2020-08-14 2020-08-14 Office Leslie, .2.840.1 [id number] Methodi 09:57:50 10:57:04 Visit Dominique Choudhury 26295.1.1 600 s t 3.430.2.7 Hospit a .3.835048 l .8 2020-08-14 2020-08-14 Travel 1.2.840.1 1.2.860.930 [id number] Methodi 00:00:00 00:00:[address] 3.430.2.7 0.2.7.3.698 Ho spita .3.548285 084.8 l .8 2020-08-14 2020-08-14 Outpatient [facility] [id number] [place] 00:00:00 00:00:00 DOMINIQUE Soriano [facility] 2020-07-31 2020-07-31 Travel 1.2.840.1 1.2.325.949 [id number] Methodi 00:00:00 00:00:[address] 3.430.2.7 0.2.7.3.698 Ho spita .3.126093 084.8 l .8 2020-07-24 2020-07-25 Emergency Brittni Del Valle 1.2.84 0.1 [id number] Methodi 01:19:00 15:25:00 Raul Smith [address]684.1.[address] [facility], Curt 3.430.2.7 Hospita .3.516930 l .8 2020-07-24 2020-07-25 Outpatient [facility] [id number] [place] 00:00:00 00:00:[address] CURT [address] 2020-07-24 2020-07-24 Travel 1.2.840.1 1.2.257.691 [id number] Methodi 00:00:00 00:00:[address] 3.430.2.7 0.2.7.3.698 Ho spita .3.513280 084.8 l .8 2020-07-23 2020-07-23 Hospital [facility], 1.2.840.1 [id number] Methodi 07:07:00 15:31:00 Encounter Dominique Choudhury 35919.1.[address] 3.430.2.7 Hospit a .3.962438 l .8 2020-07-23 2020-07-23 Anesthesia Isabelle Wetzel A. 1.2.840.1 [id number] Methodi 11:04:00 12:42:00 Event LeidyViolette 77789.1.[address] 3.430.2.7 Hospit a .3.994734 l .8 2020-07-23 2020-07-23 Surgery [facility], 1.2.840.1 [id number] Methodi 10:25:00 11:50:00 Dominique E. 11425.1.1 352 s t 3.430.2.7 Hospit a .3.771883 l .8 2020-07-23 2020-07-23 Outpatient [facility] 021 [id number] [place] 00:00:00 00:00:00 DOMINIQUE [address] 2020-07-20 2020-07-20 Pre-Admiss [facility], 1.2.840.1 [id number] Methodi 07:28:16 08:28:16 ion Dominique Choudhury 87261.1.1 719 s t Testing 3.430.2.7 Hospit a .3.996488 l .8 2020-07-20 2020-07-20 Outpatient [facility] [id number] [place] 00:00:00 00:00:00 DOMINIQUE [address] 2020-07-19 2020-07-19 Travel 1.2.840.1 1.2.090.970 [id number] Methodi 00:00:00 00:00:[address] 3.430.2.7 0.2.7.3.698 Ho spita .3.553173 084.8 l .8 2020-07-19 2020-07-19 Prep for Mccain, 1.2.840.1 [id number] Methodi 00:00:00 00:00:00 Surgery Abbi P [address]31.1.[address] 3.430.2.7 Hospit a .3.781246 l .8 2020-07-17 2020-07-17 Office [facility], 1.2.840.1 [id number] Methodi 14:08:25 14:58:03 Visit Dominique Choudhury 28946.1.1 045 s t 3.430.2.7 Hospit a .3.268223 l .8 2020-07-17 2020-07-17 Travel 1.2.840.1 1.2.020.494 [id number] Methodi 00:00:00 00:00:[address] 3.430.2.7 0.2.7.3.698 Ho spita .3.098374 084.8 l .8 2020-07-17 2020-07-17 Outpatient [facility] [id number] [place] 00:00:00 00:00:00 DOMINIQUE [address] 2020-07-10 2020-07-12 Emergency Constantin Aquino 1.2.840.1 [id number] Methodi 12:50:00 16:36:00 [facility] [address] 3.430.2.7 Hospit a .3.930495 l .8 2020-07-10 2020-07-12 Outpatient [facility]EMY [facility] [id number] [place] 00:00:00 00:00:[address] 2020-07-11 2020-07-11 Anesthesia TrevaElliotSergeval Hillman 1.2.8 40.1 [id number] Methodi 17:55:00 19:35:00 Event Ollie Rolle [address]65.1.[address] 3.430.2.7 Hospit a .3.815314 l .8 2020-07-11 2020-07-11 Surgery Leslie, 1.2.840.1 [id number] Methodi 15:30:00 16:55:00 Dominique Choudhury 88179.1.1 578 s t 3.430.2.7 Hospit a .3.371005 l .8 2020-07-10 2020-07-10 Travel 1.2.840.1 1.2.639.010 [id number] Methodi 00:00:00 00:00:[address] 3.430.2.7 0.2.7.3.698 Ho spita .3.992894 084.8 l .8 2020-06-14 2020-06-14 Outpatient [facility] 9615 [facility] 07:03:00 07:03:00 2020-06-09 2020-06-09 Outpatient [facility] 7508 [facility] 17:00:00 17:00:00 2020 2020 Outpatient [facility] 9613 [facility] 11:00:00 11:00:00 2020-04-23 2020-04-23 Appointmen ROSELINE TABOR UTP Urology - [id number] [facility] 08:15:00 08:15:00 t; Bibi TABOR M.D. [facility] Physici ans 2020-04-04 2020-04-04 Appointmen [facility]GAN[facility]TP UTP [id number] [facility] 07:00:00 07:00:00 t; Moran f [facility], [facility] Physic i ans 2020-04-04 2020-04-04 Outpatient [facility] 9611 [facility] 06:56:00 06:56:00 2020-03-08 2020-03-08 Outpatient [facility] 9610 [facility] 11:00:00 11:00:00 2019-10-24 2019-10-24 Appointmen ROSELINE TABOR UTP Urology - [id number] Univers 09:45:00 09:45:00 t; Bibi TABOR M.D. [facility] Physici ans 2019-05-09 2019-05-09 Outpatient [facility] [id number] [facility] 15:00:00 15:00:00 2019-04-01 2019-04-01 Outpatient [facility] CAR [id number] [facility] 06:40:00 06:40:00 2019-03-16 2019-03-16 Appointmen [facility]GAN[facility]TP UTP [id number] [facility] 08:30:00 08:30:00 t; Virk [facility], OP Physic i ans 2019-03-16 2019-03-16 Outpatient [facility] CAR [id number] [facility] 06:50:00 06:50:00 2018-08-20 2018-08-20 Outpatient [facility] CAR [id number] [facility] 08:05:00 08:05:00 2018-07-07 2018-07-07 Outpatient [facility] PUL [id number] [facility] 09:33:00 09:33:00 2018-06-29 2018-06-29 Appointmen STEVEN UTP UTP [id number] [facility] 14:00:00 14:00:00 t; [place] [facility], M.D. Physici YURI, ans M.D. 2018-06-23 2018-06-23 Outpatient [facility] [id number] [facility] 10:27:00 10:27:00 2018-06-23 2018-06-23 Appointmen ANJELICAKODY ALBERTO UTP [id number] [facility] 10:00:00 10:00:00 t; ANA DEJESUS, Bibi Godoy M.D. 2018-06-08 2018-06-08 Appointmen STEVEN [facility] UTP [id number] [facility] 10:00:00 10:00:00 t; Sharon [place] [facility], M.D. Physici KRISTOFER, ans M.D. Results Test Description Test Time Test Comments Results Result Comments Source ECG 12 lead 2020-09-21 03:58:06 Test Item Value Reference Range Interpretation Comme nts Ventricular rate (test code = 253) Atrial rate (test code = 255) DE interval (test code = 266) QRSD interval (test code = 260) QT interval (test code = 264) QTC interval (test code = 265) P axis 1 (test code = 267) QRS axis 1 (test code = 268) T wave axis (test code = 270) EKG impression (test code = 273) [facility] Lumbar Spine Wo [id number] 18:57:51EXAMINATION: CT LUMBAR SPINE WO CONTRAST COMPARISON: None CLINICAL HISTORY: seveer low back pain COMMENTS: Axial CT scan slices of the lumbar spine were obtained without contrast material. [place] coronal reconstructions were obtained. CT imaging was performed with iterative reconstruction technique and/or automated exposure control to reduce radiation dose. FINDINGS: The abdominal aorticaneurysm and vascular stent in place are not significantly change compared to CT scan of the abdomenMay 2020. There is new infiltrative change in the the posterior retroperitoneal fat the lower left abdomen. L5-S1 shows mild facet disease and disc bulge. L4-5 shows mild disc bulge mild facet disease ligament flavum thickening. L3-4 shows shallow broad-based disc protrusion towards the left. There is a superior endplate defect at L4 which appears stable compared to the previous CT scan. L2-3 shows mild disc bulge mild facet disease. The inferior endplate defect at posterior L2 was present on the previous study also. L1-2 shows minimal facet disease. No definite acute fracture is identified. No significant subluxation. There is mild curvature of the lumbar spine convex towards the right. IMPRESSION: Degenerative change of mild degree. The details can be further evaluated with MRI. The infiltrative change in the posterior left retroperitoneum is of unknown cause. Recommend clinical correlation including with postcontrast CT scan of the abdomen and pelvis. The findings were discussed with Dr. Oneill who verbalized understanding with read back September 19, 2020 at 1357 hours. [id number] Interface, Radiology Results - 09/19/2020 2:00 PM CDTFormatting of this note might bedifferent from the original.EXAMINATION: CT LUMBAR SPINE WO CONTRASTCOMPARISON: NoneCLINICAL HISTORY: seveer low back painCOMMENTS: Axial CT scan slices of the lumbar spine were obtained without contrast material. Sagittal and coronal reconstructions were obtained.CT imaging was performed with iterative reconstruction technique and/or automated exposure control to reduce radiation dose.FINDINGS:The abdominal aortic aneurysm and vascular stent in place are not significantly change compared to CT scan of the abdomen Jul 24 2020. There is new infiltrative change in the the posterior retroperitoneal fat the lower left abdomen.L5-S1 shows mild facet disease and disc bulge.L4-5 shows mild disc bulge mild facet disease ligament flavum thickening.L3-4 shows shallow broad-based disc protrusion towards the left. There is a superior endplate defect at L4 which appears stable compared to the previous CT scan.L2-3 shows mild disc bulge mild facet disease. The inferior endplate defect at posterior L2was present on the previous study also.L1-2 shows minimal facet disease.No definite acute fracture is identified. No significant subluxation. There is mild curvature of the lumbar spine convex towards the right.IMPRESSION: Degenerative change of mild degree. The details can be further evaluated with MRI.The infiltrative change in the posterior left retroperitoneum is of unknown cause. Recommend clinical correlation including with postcontrast CT scan of the abdomen and pelvis.The findings were discussed with Dr. Oneill who verbalized understanding with read back September 19, 2020 at 1357 hours.[id number]_[id number] Vw Lqmdwioh2008-75-01 18:15:14EXAMINATION: XR CHEST 1 VW PORTABLE CLINICAL HISTORY: 65 years Male CP COMPARISON: 07/10/2020 radiograph IMPRESSION: The lungs are clear and well-expanded with no focal consolidation, pneumothorax orpleural effusion. The cardiomediastinal silhouette is within normal limits. There is no acute osseous injury. The visualized upper abdomen is within normal limits. [id number]_PS04Hm Interface, RadiologyResults Incoming - 09/19/2020 1:18 PM CDT EXAMINATION: XR CHEST 1 VW PORTABLECLINICAL HISTORY: 65 years Male CPCOMPARISON: 07/10/2020 radiographIMPRESSION:The lungs are clear and well- expanded with no focal consolidation, pneumothorax or pleural effusion.The cardiomediastinal silhouette is within normal limits.There is no acute osseous injury.The visualized upper abdomen is within normal limits. [id number]_[id number] [facility] ED Preliminary Interpretation - Not an [id number] 17:27:13Maryan Oneill MD 09/19/2020 6:41 [facility] Preliminary Interpretation - Not an OrderPerformed by: Maryan Oneill MDAuthorized by: Maryan Oneill MD ECG reviewed by ED Physician in the absence of a sawmill supervisor: yes Interpretation: Interpretation: non-specific Rate: ECG rate:71 ECG rate assessment: normal Rhythm: Rhythm: sinus rhythm Ectopy: Ectopy: none QRS: QRS axis: Normal QRS intervals: NormalConduction: Conduction: abnormal Abnormal conduction: 1st degree ST segments: ST segments: NormalT waves: T waves: non-specificMethodist HospitalCT Abdomen Pelvis Wo [id number] 02:14:01EXAMINATION: CT ABDOMEN PELVIS WO CONTRAST CLINICAL HISTORY: 65 yearsMale Abdominal pain acute nonlocalized TECHNIQUE: Multiple axial images of the abdomen and pelvis were obtained without the admini stration of iodinated contrast. Sagittal and coronal computerized reformatted images were also obtained. CT imaging was performed with iterative reconstruction techniques and/or automated exposure control to reduce radiation dose. COMPARISON: None. IMPRESSION: LUNG BASES:A 15 mm fatty mass in the right lower pulmonary lobe is compatible with hamartoma. Trace bilateral pleural effusions are seen. ABDOMEN:Liver: Several hypodensities in liver are probably cysts but not well evaluated with contrast.Gallbladder/Biliary: The gallbladder is normal. There is no evidence of intra or extrahepatic biliary ductal dilatation.Spleen: The spleen is not enlarged.Pancreas: The pancreas is unremarkable.Adrenal Glands: The adrenal glands are unremarkable.Kidneys: Innumerable bilateral renal hypodensities likely represent cysts are seen. Some of these are hyperdense and are probably hemorrhagic cyst.Vascular: There is an aortobiiliac stent.Nodes: No enlarged retroperitoneal or mesenteric lymphadenopathy. Tiny retroperitoneal lymph nodes are seen.Bowel: No bowel obstruction or inflammatory changes.Ascites/fluidcollections: Mild ascites is seen. There is some left-sided subcutaneous edema. PELVIS:There is mildpelvic ascites with a percutaneous dialysis catheter identified. Ortega catheter is seen in the bladder. MUSCULOSKELETAL: No suspicious osseous lesions. 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 2.Right pulmonary hamartoma. 3.Aortobiiliac stent. [id number]_PS07Hm Interface, Radiology Results 07/24/2020 9:17 PM CDT EXAMINATION: CT ABDOMEN PELVIS WO CONTRASTCLINICAL HISTORY: 65 yearsMale Abdominal pain acute nonlocalizedTECHNIQUE: Multiple axial images of the abdomen and pelvis were obt ained without the administration of iodinated contrast. Sagittal and coronal computerized reformatted images were also obtained. CT imaging was performed with iterative reconstruction techniques and/orautomated exposure control to reduce radiation dose. COMPARISON: None.IMPRESSION:LUNG BASES:A 15 mmfatty mass in the right lower pulmonary lobe is compatible with hamartoma. Trace bilateral pleural effusions are seen.ABDOMEN:Liver: Several hypodensities in liver are probably cysts but not well evaluated with contrast.Gallbladder/Biliary: The gallbladder is normal. There is no evidence of intra or extrahepatic biliary ductal dilatation.Spleen: The spleen is not enlarged.Pancreas: The pancreas is unremarkable.Adrenal Glands: The adrenal glands are unremarkable.Kidneys: Innumerable bilateral renal hypodensities likely represent cysts are seen. Some of these are hyperdense and are probably hemorrhagic cyst.Vascular: There is an aortobiiliac stent.Nodes: No enlarged retroperitoneal or mesenteric lymp hadenopathy. Tiny retroperitoneal lymph nodes are seen.Bowel: No bowel obstruction or inflammatory changes.Ascites/fluid collections: Mild ascites is seen. There is some left-sided subcutaneous edema.PELVIS:There is mild pelvic ascites with a percutaneous dialysis catheter identified. Ortega catheter is seen in the bladder.MUSCULOSKELETAL: No suspicious osseous lesions. SUMMARY:1.Findings of autosomaldominant polycystic kidney disease with mild ascites.2.Right pulmonary hamartoma.3.Aortobiiliac stent.[id number]_PS07[facility] PefvmzyqAVTM-GoU-7 (COVID-19) RNA [Presence] in Respiratory specimen by SHERRY with probe [id number] 10:55:22 Test Item Value Reference Range Interpretation Comments SARS-CoV-2 (COVID-19) RNA Not detected Not-Detected [Presence] in Respiratory specimen by SHERRY with probe detection (test code = 36299-2) Whether patient is employed in a healthcare setting (test code = 19836-6) Whether the patient has symptoms related to condition of interest (test code = 44231-5) Patient was hospitalized because of this condition (test code = 38171-1) Whether the patient was admitted to intensive care unit (ICU) for condition of interest (test code = 46162-9) Whether patient resides in a congregate care setting (test code = 68990-5) Urine [id number] 06:53:48 Test Item Value Reference Range Interpretation Comments Urine culture (test code = SEE COMMENT [id number]) [facility]2021-05-24 16:20:31Isabelle Wetzel MD 07/23/2020 11:21 AMAirway Date/Time: 07/23/2020 11:20 AM Location: OR Performed by: anesthesiologistAuthorized by: Isabelle Wetzel MD Urgency: ElectiveDifficult Airway:No Preoxygenated with 100% O2: Yes C-spine Precautions Maintained Throughout: Yes Mask Ventilation: Easy maskFinal Airway Type: Endotracheal airwayFinal Endotracheal Airway: ETTTechnique Used: Di ara laryngoscopyBlade Type: MillerLaryngoscope Blade/Videolaryngoscope Blade Size: 3ETT Size (mm): 8.0Measured from: LipsETT to Lips (cm): 24Placement Verified by: CO2 detection, direct visualization and equal breath sounds Laryngoscopic view: Grade I - full view of glottisRapid Sequence Induction (RSI): No Modified RSI: No Number of Attempts at Approach: [address] [place], [place] [address]ARS-CoV-2 (COVID-19) RNA [Presence] in Respiratory specimen by SHERRY with probe [id number] 15:04:45 Test Item Value Reference Range Interpretation Comments SARS-CoV-2 (COVID-19) RNA Not detected Not-Detected [Presence] in Respiratory specimen by SHERRY with probe detection (test code = 22894-4) Whether patient is employed in a healthcare setting (test code = 44657-9) Whether the patient has symptoms related to condition of interest (test code = 56701-3) Patient was hospitalized because of this condition (test code = 11711-5) Whether the patient was admitted to intensive care unit (ICU) for condition of interest (test code = 65956-6) Whether patient resides in a congregate care setting (test code = 08533-9) [id number] 01:07:00Megan Felix CRNA 07/11/2020 6:28 PMAirway Date/Time: 07/11/2020 8:07 PM Location: OR Performed by: ALYSSA/SAKSHI and anesthesiologistAnesthesiologist: Serge Tilley, YAJAIRAesident /ALYSSA/AA: Megan Felix CRNAAuthorized by: Megan Felix CRNA Urgency: ElectiveDifficult Airway: No Preoxygenated with 100% O2: Yes Mask Ventilation: Easy maskFinal AirwayType: Endotracheal airwayFinal Endotracheal Airway: ETTCuffed: Yes Technique Used: Direct laryngo scopyDevices/Methods Used in Placement: Intubating styletInsertion Site: OralBlade Type: MillerLaryngoscope Blade/Videolaryngoscope Blade Size: 2ETT Size (mm): 7.0Cuff at minimum occlusion pressure: Yes Measured from: LipsETT to Lips (cm): 23Placement Verified by: CO2 detection, direct visualization and equal breath sounds Laryngoscopic view: Grade I - full view of glottisRapid Sequence Induction (RSI): No Modified RSI: No Number of Attempts at Approach: [address] [place], [place] [address]XR Abdomen 1 [id number] 01:32:09EXAMINATION: XR ABDOMEN 1 VW CLINICAL HISTORY: Abdominal pain and PD Cath COMPARISON: None. FINDINGS: There is an aortic stent graft. Opaque catheter overlies the lower abdomen with the coiled portion overlying the left iliac wing. There is increase in the amount of gas and feces in the colon. IMPRESSION:As above [id number] Interface, Radiology Results Incoming - 07/10/2020 8:35 PM CDT EXAMINATION: XR ABDOMEN 1 VWCLINICAL HISTORY: Abdominal pain and PD CathCOMPARISON: None.FINDINGS:There is an aortic stent graft.Opaque catheter overlies the lower abdomen with the coiled portion overlying the left iliac wing.There is increase in the amount of gas and feces in the colon.IMPRESSION:As aboveEN[id number] SARS-CoV-2 (COVID-19) RNA [Presence] in Respiratory specimen by SHERRY with probe [id number] 00:03:03 Test Item Value Reference Range Interpretation Comments SARS-CoV-2 (COVID-19) RNA Not detected Not-Detected [Presence] in Respiratory specimen by SHERRY with probe detection (test code = 08147-1) Whether patient is employed in a healthcare setting (test code = 72527-5) Whether the patient has symptoms related to condition of interest (test code = 74463-5) Patient was hospitalized because of this condition (test code = 74275-5) Whether the patient was admitted to intensive care unit (ICU) for condition of interest (test code = 41950-4) Whether patient resides in a congregate care setting (test code = 39919-6)
[2020-09-30 07:45] LABS: Absolute Lymphocytes (CBC) 2.1 K/uL (0.7-4.9); Basophils % 0.5 % (0-1.3); Hematocrit 37.5 % (39.6-49.0); Lymphocytes % 20.1 % (15.3-44.8); MPV 8.4 fL (7.6-11.3); RBC Red Blood Cell Count 4.13 M/uL (4.33-5.43)
[2020-09-30 07:53] LABS: Protime INR 1.03
[2020-09-30 08:02] LABS: ALT/SGPT 14 U/L (12-78); AST/SGOT 8 U/L (15-37); Albumin 2.8 g/dL (3.4-5.0); Alkaline Phosphatase 49 U/L (45-117); BUN Blood Urea Nitrogen 50 mg/dL (7-18); Bicarbonate 29 mmol/L (21-32); Bilirubin Direct 0.1 mg/dL (0-0.2); Bilirubin Total 0.3 mg/dL (0.2-1.0); Glucose Level 101 mg/dL (74-106); Magnesium 1.7 mg/dL (1.8-2.4); NT PRO-BNP 555 pg/mL (<125); Potassium 3.3 mmol/L (3.5-5.1); Protein, Total 6.8 g/dL (6.4-8.2); Sodium Level 142 mmol/L (136-145); Troponin (Emerg Dept Use Only) < 0.02 ng/mL (0.0-0.045)
--- NOTE | 2020-09-30 08:29 | RAD REPORT ---
EXAM DESCRIPTION: CT - Abdomen Pelvis Wo Contrast - 09/30/2020 8:18 am CLINICAL HISTORY: Abdominal pain. no contrast;Abd pain COMPARISON: Abdomen Pelvis Wo Contrast dated 05/28/2020 TECHNIQUE: CT imaging of the abdomen and pelvis was performed without contrast. Solid organ, bowel a nd vascular assessment is limited due to lack of IV and oral contrast. All CT scans are performed using dose optimization technique as appropriate and may include automated exposure control or mA/KV adjustment according to patient size. FINDINGS: Trace pleural fluid is present with emphysematous lung bases.Fat density nodules present i n the medial right lung base measuring 16 mm, presumably related to a hamartoma. Multiple liver cysts are seen. Polycystic kidney disease is present with innumerable cysts.The spleen , pancreas and adrenal glands show no acute process. Trace free fluid is seen in the upper abdomen. Aortic endograft is present. Peritoneal dialysis cath eter is seen. Sigmoid diverticulosis is notable with mild inflammation suspected. The osseous structures are within normal limits. IMPRESSION: A mild/early acute diverticulitis is possible. Polycystic kidney disease. Aortic endograft is in place, incompletely assessed due to lack of contrast material. Trace free fluid. A limited non-contrast examination was performed as detailed.
--- NOTE | 2020-09-30 08:55 | ER ---
Nurse's Notes [facility] Name: Stan Jimenes Age: 65 yrs Sex: Male : 1955 Arrival Date: 09/30/2020 Time: 06:17 Bed 17 Private MD: Diagnosis: Coronavirus infection, unspecified;Diverticulitis of intestine, part unspecified, without perforation or abscess without bleeding Presentation: 09/30 07:16 Chief complaint: Patient states: "I am having back pain and lower stomach pain and jd3 feeling weak all over.". Coronavirus screen: fatigue, muscle pain, Client presents with at least one sign or symptom that may indicate coronavirus-19. Standard/surgical mask placed on the client. Provider contacted for isolation considerations. Ebola Screen: Patient negative for fever greater than or equal to 101.5 degrees Fahrenheit, and additional compatible Ebola Virus Disease symptoms. Initial Sepsis Screen: Does the patient meet any 2 criteria? No. Patient's initial sepsis screen is negative. Does the patient have a suspected source of infection? No. Patient's initial sepsis screen is negative. Risk Assessment: Do you want to hurt yourself or someone else? Patient reports no desire to harm self or others. Onset of symptoms was September 30, 2020. 07:16 Method Of Arrival: Ambulatory jd3 07:16 Acuity: CHAVA 3 jd3 Triage Assessment: 07:20 General: Appears in no apparent distress. uncomfortable, Behavior is calm, cooperative, bp appropriate for age. Pain: Complains of pain in low back area, right lower quadrant and left lower quadrant. EENT: No deficits noted. Neuro: Level of Consciousness is awake, alert, obeys commands, Oriented to Appropriate for age. Cardiovascular: No deficits noted. Respiratory: No deficits noted. GI: Reports lower abdominal pain. : Reports pain in bilateral flank(s). Derm: No deficits noted. Musculoskeletal: No deficits noted. Historical: - Allergies: 07:17 No Known Allergies; jd3 - PMHx: 07:17 Aneurysm; High Cholesterol; Diabetes - NIDDM; Gout; Hypertension; AAA; COPD; POLYCYSTIC jd3 KIDNEY DISEASE; "Dialysis for the stomach, not the blood"; - Immunization history:: Adult Immunizations up to date, Client reports receiving the 2nd dose of the Covid vaccine. - Social history:: Smoking status: Patient/guardian denies using tobacco, but has a distant history of tobacco abuse. Screenin:19 Abuse screen: Denies threats or abuse. Nutritional screening: No deficits noted. jd3 Tuberculosis screening: No symptoms or risk factors identified. Fall Risk Ambulatory Aid- None/Bed Rest/Nurse Assist (0 pts). Gait- Normal/Bed Rest/Wheelchair (0 pts) Mental Status- Oriented to own ability (0 pts). Total Godinez Fall Scale indicates No Risk (0-24 pts). Assessment: 07:20 General: SEE TRIAGE NOTE. bp 08:29 Reassessment: PT RETURNED FROM RADIOLOGY. bp 09:47 Reassessment: PT D/C HOME AMBULATORY WITH FAMILY, DX WITH +COV AND DIVERTICULITIS. bp Vital Signs: 06:49 BP 107 / 77 Supine; Pulse 62; Resp 18; Temp 98.0(TE); Pulse Ox 100% ; ds4 07:27 BP 106 / 66; Pulse 56; Resp 17; Pulse Ox 100% ; bp 08:29 BP 116 / 56; Pulse 55; Resp 16; Pulse Ox 99% ; bp 09:46 BP 113 / 56; Pulse 62; Resp 16; Temp 97.9; Pulse Ox 94% ; bp ED Course: 06:17 Patient arrived in ED. wm 06:49 [facility]eda Christie [facility]C [facility] kb 06:49 Jimmie Holland MD is Attending Physician. kb 07:17 Triage completed. jd3 07:18 Arm band placed on. jd3 07:18 Patient has correct armband on for positive identification. Bed in low position. Call jd3 light in reach. Side rails up X 1. Adult w/ patient. monitor worker on. Pulse ox on. NIBP on. 07:21 Nestor Bernal, RN is Primary Nurse. bp 07:33 Inserted saline lock: 20 gauge in right antecubital area, using aseptic technique. jd3 Blood collected. 07:40 XRAY Chest (1 view) In Process Unspecified. EDMS 08:18 CT Abd/Pelvis - Without Contrast In Process Unspecified. EDMS 08:36 Attending Physician role handed off by Jimmie Holland MD rn 08:36 Basil Ya MD is Attending Physician. rn 09:47 No provider procedures requiring assistance completed. IV discontinued, intact, bp bleeding controlled, No redness/swelling at site. Pressure dressing applied. Administered Medications: 09:30 Drug: Cipro (ciprofloxacin) 500 mg Route: PO; bp 09:45 Follow up: Response: No adverse reaction bp 09:30 Drug: Flagyl (metroNIDAZOLE) 500 mg Route: PO; bp 09:45 Follow up: Response: No adverse reaction bp Outcome: 08:54 Discharge ordered by . kb 09:48 Discharged to home ambulatory, with family. bp 09:48 Condition: stable 09:48 Discharge instructions given to patient, family, Instructed on discharge instructions, follow up and referral plans. medication usage, Demonstrated understanding of instructions, follow-up care, medications, Prescriptions given X 2. 09:49 Patient left the ED. bp Signatures: Dispatcher [employer] EDMS Neda Christie, DRAW END HAND-C DRAW END HAND-Ckb Basil Ya MD MD rn Swanson, Donovan dsOleg To RN RN jd3 Nestor Bernal RN RN Ayana Grider
--- NOTE | 2020-09-30 08:56 | EDPHYS ---
Physician Documentation [facility] Name: Stan Jimenes Age: 65 yrs Sex: Male : 1955 Arrival Date: 09/30/2020 Time: 06:17 Bed 17 Private MD: ED Physician Basil Ya HPI: 09/30 07:33 This 65 yrs old Male presents to ER via Ambulatory with complaints of Low kb Back Pain, General Weakness. 07:33 The patient presents with pain that is acute, with no known mechanism of injury. The kb symptoms are located in the lumbar area. The pain does not radiate. The problem was sustained without known cause. Onset: The symptoms/episode began/occurred 2 week(s) ago. Modifying factors: The patient symptoms are alleviated by nothing, the patient symptoms are aggravated by movement. Associated signs and symptoms: Pertinent positives: abdominal pain, weakness, Pertinent negatives: chest pain, constipation, dysuria, fever, headache, hematuria, incontinence, nausea, numbness, tingling, urinary retention, vomiting. Severity of symptoms: At their worst the symptoms were moderate, in the emergency department the symptoms are unchanged. The patient has not experienced similar symptoms in the past. The patient has been recently seen by a physician:. Patient reports low back pain, abdominal pain, cough, malaise, fatigue, decreased appetite, weakness, congestion. Reports his symptoms for 2 weeks. Was hospitalized at [place] for 1 day and states they did a lot of tests but could not figure out what was going on. Patient does peritoneal dialysis nightly.. Historical: - Allergies: 07:17 No Known Allergies; jd3 - PMHx: 07:17 Aneurysm; High Cholesterol; Diabetes - NIDDM; Gout; Hypertension; AAA; COPD; POLYCYSTIC jd3 KIDNEY DISEASE; "Dialysis for the stomach, not the blood"; - Immunization history:: Adult Immunizations up to date, Client reports receiving the 2nd dose of the Covid vaccine. - Social history:: Smoking status: Patient/guardian denies using tobacco, but has a distant history of tobacco abuse. ROS: 07:35 Cardiovascular: Negative for chest pain, palpitations, and edema. kb 07:35 Constitutional: Positive for fatigue, malaise, poor PO intake, Negative for body aches, chills, fever. 07:35 Respiratory: Positive for cough, Negative for dyspnea on exertion, hemoptysis, orthopnea, pleurisy, shortness of breath, sputum production, wheezing. 07:35 Abdomen/GI: Positive for abdominal pain, Negative for nausea, vomiting, and diarrhea. 07:35 Back: Positive for pain at rest, pain with movement, of the lumbar area. 07:35 All other systems are negative. Exam: 07:36 Constitutional: This is a well developed, well nourished patient who is awake, alert, kb and in no acute distress. Head/Face: Normocephalic, atraumatic. ENT: Moist Mucous membranes Cardiovascular: Regular rate and rhythm with a normal S1 and S2. No gallops, murmurs, or rubs. No pulse deficits. Respiratory: Respirations even and unlabored. No increased work of breathing, no retractions or nasal flaring. Skin: Warm, dry with normal turgor. Normal color. MS/ Extremity: Pulses equal, no cyanosis. Neurovascular intact. Full, normal range of motion. Neuro: Awake and alert, GCS 15, oriented to person, place, time, and situation. Moves all extremities. Normal gait. Psych: Awake, alert, with orientation to person, place and time. Behavior, mood, and affect are within normal limits. 07:36 Abdomen/GI: Inspection: abdomen appears normal, Bowel sounds: normal, in all quadrants, Palpation: soft, in all quadrants, moderate abdominal tenderness, in the right upper quadrant and right lower quadrant. 07:36 Back: pain, that is moderate, of the lumbar area, ROM is painful, normal spinal alignment noted. Vital Signs: 06:49 BP 107 / 77 Supine; Pulse 62; Resp 18; Temp 98.0(TE); Pulse Ox 100% ; ds4 07:27 BP 106 / 66; Pulse 56; Resp 17; Pulse Ox 100% ; bp 08:29 BP 116 / 56; Pulse 55; Resp 16; Pulse Ox 99% ; bp 09:46 BP 113 / 56; Pulse 62; Resp 16; Temp 97.9; Pulse Ox 94% ; bp MDM: 06:49 Patient medically screened. kb 08:53 Data reviewed: vital signs, nurses notes. Data interpreted: Pulse oximetry: on room air kb is 99 %. Interpretation: normal. Counseling: I had a detailed discussion with the patient and/or guardian regarding: the historical points, exam findings, and any diagnostic results supporting the discharge/admit diagnosis, lab results, radiology results, the need for outpatient follow up, a family practitioner, to return to the emergency department if symptoms worsen or persist or if there are any questions or concerns that arise at home. 09/30 06:54 Order name: Basic Metabolic Panel; Complete Time: 08:17 kb 09/30 06:54 Order name: CBC with Diff; Complete Time: 07:57 kb 09/30 06:54 Order name: LFT's; Complete Time: 08:17 kb 09/30 06:54 Order name: Magnesium; Complete Time: 08:17 kb 09/30 06:54 Order name: NT PRO-BNP; Complete Time: 08:17 kb 09/30 06:54 Order name: PT-INR; Complete Time: 07:57 kb 09/30 06:54 Order name: Troponin (emerg Dept Use Only); Complete Time: 08:17 kb 09/30 06:54 Order name: XRAY Chest (1 view) kb 09/30 06:54 Order name: EKG; Complete Time: 06:55 kb 09/30 07:49 Order name: CT Abd/Pelvis - Without Contrast; Complete Time: 08:30 kb 09/30 08:38 Order name: SARS-COV-2 RT PCR; Complete Time: 08:51 EDMS 09/30 06:54 Order name: Cardiac monitoring; Complete Time: 08:29 kb 09/30 06:54 Order name: EKG - Nurse/Tech; Complete Time: 09:45 kb 09/30 06:54 Order name: IV Saline Lock; Complete Time: 07:33 kb 09/30 06:54 Order name: Labs collected and sent; Complete Time: 07:33 kb 09/30 06:54 Order name: O2 Per Protocol; Complete Time: 07:23 kb 09/30 06:54 Order name: O2 Sat Monitoring; Complete Time: 07:23 kb Administered Medications: 09:30 Drug: Cipro (ciprofloxacin) 500 mg Route: PO; bp 09:45 Follow up: Response: No adverse reaction bp 09:30 Drug: Flagyl (metroNIDAZOLE) 500 mg Route: PO; bp 09:45 Follow up: Response: No adverse reaction bp Disposition: 09:08 Co-signature as Attending Physician, Basil Ya MD I agree with the assessment and rn plan of care. Attestation: The patient's history, exam findings, diagnostics, and a summary of any interventions or procedures was reviewed in detail with Neda SYLVESTER. Disposition Summary: 09/30/20 08:54 Discharge Ordered Location: Home kb Condition: Stable kb Diagnosis - Coronavirus infection, unspecified kb - Diverticulitis of intestine, part unspecified, without perforation or abscess kb without bleeding Followup: kb - With: Emergency Department - When: As needed - Reason: Worsening of condition Followup: kb - With: Private Physician - When: 2 - 3 days - Reason: Recheck today's complaints, Continuance of care, Re-evaluation by your physician Discharge Instructions: - Discharge Summary Sheet kb - Diverticulitis, [id number] kb - Viral Respiratory Infection, [id number] kb - COVID-19 kb Forms: - Medication Reconciliation Form kb - Thank You Letter kb - Antibiotic Education kb - Prescription Opioid Use kb Prescriptions: - Flagyl 500 mg Oral Tablet - take 1 tablet by ORAL route every 8 hours for 10 days; 30 tablet; Refills: 0, kb Product Selection Permitted - Cipro 500 mg Oral Tablet - take 1 tablet by ORAL route once daily for 10 days; 10 tablet; Refills: 0, kb Product Selection Permitted Signatures: Dispatcher [employer] Neda Brambila FNP-C FNP-Ckb Nieto, Roman, MD MD rn Davies, Jonathon RN RN Nestor Murry RN RN bp Corrections: (The following items were deleted from the chart) 07:36 07:33 Patient reports low back pain, abdominal pain, cough, malaise, fatigue, weakness, kb congestion. Reports his symptoms for 2 weeks. Was hospitalized at [place] for 1 day and states they did a lot of tests but could not figure out what was going on. Patient does peritoneal dialysis nightly.. kb 07:48 06:55 CORONAVIRUS+MR.LAB.BRZ ordered. EDIN EDMS
[2020-09-30] MEDS ORDERED: metroNIDAZOLE 500 MG TABLET ONE (09:38)
[2020-09-30] MEDS ORDERED: CIPROFLOXACIN HCL 500 MG TAB ONE (09:39)
[2020-09-30 10:00] VITALS: BP 113/56; TEMP 97.9; O2SAT 94
--- NOTE | 2020-09-30 10:32 | RAD REPORT ---
EXAM DESCRIPTION: RAD - Chest Single View - 09/30/2020 7:40 am CLINICAL HISTORY: COUGH Chest pain. COMPARISON: Chest Pa And Lat (2 Views) dated 06/15/2020; Chest Single View dated 05/28/2020; Chest Sin gle View dated 11/14/2019; Chest Single View dated 04/09/2018 FINDINGS: Portable technique limits examination quality. The lungs are grossly clear. The heart is normal in size. No displaced fractures. IMPRESSION: No acute intrathoracic process suspected.
--- NOTE | 2020-10-01 09:06 | EKG ---
Test Date: 2020-09-30 Test Time: 09:34:03 Leadership Coach: BP MEASUREMENT RESULTS: Intervals: Rate: 56 MS: 274 QRSD: 72 QT: 390 QTc: 376 [place]: P: 92 MS: 274 QRS: 5 T: -14 INTERPRETIVE STATEMENTS: Sinus bradycardia with 1st degree AV block Nonspecific ST and T wave abnormality Abnormal ECG Compared to ECG 05/28/2020 17:16:29 ST (T wave) deviation now present Myocardial infarct finding no longer present Electronically Signed On 10-01-20 09:04:06 CDT by Yvon Baum
== END 2020-09-30 09:49 | disposition home or self-care (01) ==
LOC: ER 06:15
DX: U07.1 COVID-19 (principal); K57.92 Diverticulitis of intestine, part unspecified, without perforation or abscess without bleeding; E78.00 Pure hypercholesterolemia, unspecified; E11.9 Type 2 diabetes mellitus without complications; M10.9 Gout, unspecified; I10 Essential (primary) hypertension; I71.4 Abdominal aortic aneurysm, without rupture; J44.9 Chronic obstructive pulmonary disease, unspecified; Q61.3 Polycystic kidney, unspecified; Z87.891 Personal history of nicotine dependence
CPT/HCPCS: 93005; 85025; 80048; 36415; 83735; 85610; 80076; 84484; 83880; 74176; 71045; U0003; 99284

== ENCOUNTER 2021-12-25 15:08 | Inpatient (IN) | payer OTHER ==
--- OUTSIDE RECORDS SUMMARY | 2021-12-25 15:15 | XMS REPORT | Continuity of Care Document ---
:1955 Author Organization [facility] t Address [address] [place] [address] Dr. Trevino [address] [place] [id number] Care Team Providers Name Role Phone Unknown, Physician Primary Care Physician Unavailable DAYANA GOEL Attending Clinician Unavailable ANA DEJESUS Attending Clinician Unavailable SILVINO COSME Attending Clinician Unavailable ELENA TOBIAS Attending Clinician Unavailable FILIPPO MILNER Attending Clinician Unavailable Ciro Toro Attending Clinician Gus Jackson MD Attending Clinician Ke Lynne MD Attending Clinician [phone] Giancarlo Mansfield MD Attending Clinician Jeronimo ARCOS, Jaret Valle Attending Clinician [phone] David Gonzalez MD Attending Clinician Julia Clements DO Attending Clinician Dylon Krishnamurthy CRNA Attending Clinician [phone] ANA DEJESUS Attending Clinician Unavailable Elena Tobias MD Attending Clinician [phone] CHICO JAY Attending Clinician Unavailable Mai ARCOS, Maryan Zuleta Attending Clinician Jeremy Cool MD Attending Clinician Blue ARCOS, [place] Attending Clinician Leslie ARCOS, Dominique Choudhury Attending Clinician Brittni Del Valle DO Attending Clinician [phone] Sarah ARCOS, Jazmyn Attending Clinician Mat ARCOS, Julian Attending Clinician Rashard ARCOS, Isabelle Escobedo Attending Clinician Leidy EYE PHYSICIAN, Violette Attending Clinician Abbi Mccain MA Attending Clinician Unavailable Constantin Aquino MD Attending Clinician Treva ARCOS, Serge Hillman Attending Clinician [phone] Ollie Rolle MD Attending Clinician KATEY LASSITER Attending Clinician Unavailable Katey Lassiter MD Attending Clinician SILVINO COSME M.D. Attending Clinician Unavailable ORGANTRANSPLANT, OP Attending Clinician Unavailable YURI MALLORY M.D. Attending Clinician UnavailANA Ayala M.D. Attending Clinician Unavailable DAYANA GOEL Admitting Clinician Unavailable Ciro Toro Admitting Clinician KE LYNNE Admitting Clinician Unavailable ELENA TOBIAS Admitting Clinician Unavailable Elena Tobias MD Admitting Clinician [phone] JEREMY COOL Admitting Clinician Unavailable JAZMYN TORRES Admitting Clinician Unavailable DOMINIQUE FALCON Admitting Clinician Unavailable KATEY LASSITER Admitting Clinician Unavailable Payers Payer Name Policy Type Policy Number Effective Date Expiration Date S ource [employer] CHOICE POS [id number] 2017 00:00:00 II Problems Condition Condition Condition Status Onset Resolution Last Treating Co mments Source Name Details Category Date Date Treatment Clinician Date Glycosuria Glycosuria Disease Active U T 10-28 Health 00:00: 00 Lung Lung Disease Active UT nodules nodules 10-28 Health 00:00: 00 Vitamin D Vitamin D Disease Active UT deficiency deficiency 04-29 He alth , , 00:00: unspecifie unspecifie 00 d d Other Other Disease Active UT fatigue fatigue 04-29 Health 00:00: 00 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 10-22 He alth sm sm 00:00: 00 Weakness Weakness Disease Active [facility] di 09-19 st 00:00: Hospita 00 l 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[facility] renal renal 07-31 07:01:40 l disease disease 00:00: Zen (disorder) (disorder) 00 Active 07/31/2020 Problem 07/24/2021 Pt still makes urine [facility] Night-time Night-kevin Problem Active 2021-07-24 Memoria intermitte e 07-31 07:01:40 l nt intermitte 00:00: Oni gutierrez peritoneal nt 00 dialysis peritoneal (procedure dialysis ) (procedure ) Active 07/31/2020 Problem 07/24/2021 pt has PD 9 hours per night while sleeping [facility] Malpositio Malpositio Disease Active M ethodi n of n of 07-24 st peritoneal peritoneal 00:00: Ho spita dialysis dialysis 00 l catheter catheter HTN HTN Disease Active [facility] (hypertens (hypertens 07-10 st ion) ion) 00:00: Hospita 00 l HLD HLD Disease Active [facility] (hyperlipi (hyperlipi 07-10 st demia) demia) 00:00: Hospita 00 l Anemia of Anemia of Disease Active Met hodi chronic chronic 07-10 st disease disease 00:00: Hospita 00 l 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, ion, 10-23 Health testicular testicular 00:00: 00 Aneurysm Aneurysm Disease Active UT 10-23 Health 00:00: 00 Erectile Erectile Disease Active UT dysfunctio dysfunctio 10-23 He alth n n 00:00: 00 History of History of Disease Active U T multiple multiple 10-23 Health pulmonary pulmonary 00:00: nodules nodules 00 Low Low Disease Active UT compliance compliance 10-22 He alth bladder bladder 00:00: 00 Microscopi Microscopi Disease Active U T c c 10-22 Health hematuria hematuria 00:00: 00 Prostate Prostate Disease Active UT cancer cancer 10-22 Health screening screening 00:00: 00 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 10-22 Health 00:00: 00 Adult Adult Disease Active UT polycystic polycystic 10-22 He alth kidney kidney 00:00: disease disease 00 BPH BPH Disease Active UT (benign (benign 10-22 Health prostatic prostatic 00:00: hyperplasi hyperplasi 00 a) a) CKD CKD Disease Active UT (chronic (chronic 10-22 Health kidney kidney 00:00: disease) disease) 00 Prophylact Prophylact Disease Active U T ic ic 10-20 Health antibiotic antibiotic 00:00: 00 History of History Problem Active 2021-07-24 Memoria - 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:01:40 l aneurysm aortic 00:00: 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 06/01/2015 Problem 07/24/2021 had repair [facility] History of History of Problem Active U T multiple multiple Physic i pulmonary pulmonary ans nodules nodules Aneurysm Aneurysm Problem Active UT Physici ans Erectile Erectile Problem Active UT dysfunctio dysfunctio Ph ysici n n ans History of History of Problem Resolve UT chronic chronic d Physici obstructiv obstructiv an s e lung e lung disease disease History of History of Problem Resolve UT essential essential d Phys ici hypertensi hypertensi an s on on History of History of Problem Resolve UT hyperlipid hyperlipid d Ph ysici emia emia ans Prophylact Prophylact Problem Active U T ic ic Physici antibiotic antibiotic an s BPH BPH Problem Active UT (benign (benign Physici prostatic prostatic ans hyperplasi hyperplasi a) a) Low Low Problem Active UT compliance compliance Ph ysici bladder bladder ans Adult Adult Problem Active UT polycystic polycystic Ph ysici kidney kidney ans disease disease Microscopi Microscopi Problem Active U T c c Physici hematuria hematuria ans Proteinuri Proteinuri Problem Active U T a a Physici ans CKD CKD Problem Active UT (chronic (chronic Physic i kidney kidney ans disease) disease) Constipati Constipat Problem Active 2021-07-24 Memoria on ion 07:01:40 l (disorder) (disorder) He rmann Active Problem 07/24/2021 [facility] Dysphagia Dysphagia Problem Active 2021-07-24 [facility]oria (disorder) (disorder) 07:01:40 l Active Zen Problem 07/24/2021 [facility] Gastroesop Gastroeso Problem Active 2021-07-24 [facility]oria hageal phageal 07:01:40 l reflux reflux Zen disease disease (disorder) (disorder) Active Problem 07/24/2021 [facility] Prostate Prostate Problem Active UT cancer cancer Physici screening screening ans Gout Gout Problem Active 2021-07-24 Memor ia (disorder) (disorder) 07:01:40 l Active Zen Problem 07/24/2021 [facility] Hyperchole Hyperchol Problem Active 2021-07-24 Memoria sterolemia esterolemi 07:01:40 l (disorder) a Oni n (disorder) Active Problem 07/24/2021 [facility] Swallowing Problem Active 2021-07-24 M emoria painful Swallowing 07:01:40 l (finding) painful Oni n (finding) Active Problem 07/24/2021 [facility] Obstructiv Obstructi Problem Active 2021-07-24 Memoria e sleep ve sleep 07:01:40 l apnea apnea [place] syndrome syndrome (disorder) (disorder) Active Problem 07/24/2021 Has CPAP does not use [facility] 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 07:01:40 l kidney kidney [place] disease disease (disorder) (disorder) Active Problem 07/24/2021 pt is on PD every night [facility] Ulcer of Ulcer of Problem Active 2021-07-24 [facility]oria esophagus esophagus 07:01:40 l (disorder) (disorder) He rmann Active Problem 07/24/2021 [facility] Hyperfunct Hyperfunct Problem Active U T ion, ion, Physici testicular testicular an s History of Past Illness Condition Condition Condition Status Onset Resolution Last Treating Co mments Source Name Details Category Date Date Treatment Clinician Date Ulcer of Ulcer of Problem 2021-07-24 2021-07-24 [facility]oria esophagus esophagus 24 07:01:40 07:01:40 l without without 17:00: [place] bleeding bleeding 00 07/23/2021 [facility] Allergies, Adverse Reactions, Alerts This patient has no known allergies or adverse reactions. Family History Family Member Diagnosis Comments Start Date Stop Date Source Natural father Kidney disease [facility] Natural father Polycystic kidney Met [facility] disease Natural mother No Known Problems Met [facility] Father Family history of End [facility] stage renal disease Father Family history of [facility] Kidney transplant recipient Father Family history of [facility] Polycystic kidney Social History Social Habit Start Date Stop Date Quantity Comments Source History of tobacco Current smoker [facility] use Exposure to 2021-10-18 2021-10-28 Not sure [facility] SARS-CoV-2 (event) 00:00:00 07:42:00 Alcohol intake 2021-05-24 2021-05-24 Current drinker [facility] 00:00:00 00:00:00 of alcohol Hospital (finding) Cigarettes smoked 2020-07-20 2020-07-[address] current (pack per 00:00:00 00:00:00 [facility] l day) - Reported Cigarette 2020-07-20 2020-07-20 [facility] pack-years 00:00:00 00:00:00 Hospital Tobacco use and 2020-07-20 2020-07-20 Smokeless tobacco [facility] exposure 00:00:00 00:00:00 non-user Hospital Alcohol Comment 2020-07-20 2020-07-20 less than monthly [facility] 00:00:00 00:00:00 Hospital Sex Ass[birth year] At [birth year] [facility] 00:00:00 00:00:00 Hospital Smoking Status Start Date Stop Date Source Tobacco smoking consumption [facility] unknown Social History [facility] [place] Ex-smoker 2020-10-16 00:00:00 2020-10-16 00:00:00 [facility] Medications Ordered Filled Start Stop Current Ordering Indication Dosage Frequency Signature Comments Components Source Medication Medication Date Date Medication? Clinician (SIG) Name Name allopurinol Yes 1{tbl} QD Take 1 UT (Zyloprim) 8-30 tablet by Heal th 100 MG 16:31: mouth 1 tablet 24 (one) time each day. Magnesium 0 Yes 400mg QD Take 400 UT Oxide -Mg 8-30 mg by Health Supplement 16:31: mouth 1 400 MG 24 (one) time capsule each day. potassium 0 Yes QD Take by UT chloride CR 8-19 mouth 1 Healt h (K-Tab) 20 00:00: (one) time MEQ ER 00 each day. tablet atorvastati Yes 20mg Take 20 mg UT n (Lipitor) 8-05 by mouth Heal th 20 MG 00:00: every tablet 00 night. tamsulosin Yes .4mg Take 0.4 UT (Flomax) 7-07 mg by Health 0.4 MG 24 00:00: mouth hr capsule 00 every night. calcitriol Yes .5ug Q2D Take 0.5 UT (Rocaltrol) 6-22 mcg by Health 0.5 MCG 00:00: mouth capsule 00 every other day. furosemide Yes 80mg QD Take 80 mg U T (Lasix) 80 6-22 by mouth 1 Hea lth MG tablet 00:00: (one) time 00 each day. LR 1,000 mL No 1,000 mL, M emoria 5-24 IV, 75 l 12:45: mL/hr, start date 07/23/21 7:45:00 CDT, 2.26, m2 Saline Lock No 10 mL, Jonathan kayden Flush 5-24 Soln, IV l 12:45: Push, As Indicated PRN for flush, first dose 07/23/21 7:45:00 CDT Robinul No 0.2 mg = 1 Jonathan kayden 5-24 mL, l 12:45: Injection, IV Push, Once PRN for bradycardi a, first dose 07/23/21 7:45:00 CDT Xopenex No 0.63 mg = Memor ia 0.63 mg/3 5-24 3 mL, l mL 12:45: Soln, NEB, Zen inhalation 00 Once PRN solution for wheezing, first dose 07/23/21 7:45:00 CDT ondansetron No 4 mg = 2 Me moria 5-24 mL, l 12:45: Injection, [place] 00 IV Push, q15min PRN for nausea, order duration: 2 dose(s)/ti me(s), first dose 07/23/21 7:45:00 CDT, stop date Limited # of times promethazin No 12.5 mg = M emoria e 5-24 0.5 mL, l 12:45: Injection, [place] 00 IM, Once PRN for vomiting, first dose 07/23/21 7:45:00 CDT labetalol No 5 mg = 1 Jonathan kayden 5-24 mL, l 12:45: Injection, [place] 00 IV Push, As Indicated PRN for hypertensi on, first dose 07/23/21 7:45:00 CDT, SBP Hold Parameter: less than 110 mmHg, HR Hold Parameter: less than 60 bpm hydrALAZINE No 10 mg = Mem oria 5-24 0.5 mL, l 12:45: Injection, Zen 00 IV Push, As Indicated PRN for hypertensi on, first dose 07/23/21 7:45:00 CDT, SBP Hold Parameter: less than 110 mmHg diphenhydrA No 25 mg = Mem oria MINE 5-24 0.5 mL, l 12:45: Injection, [place] 00 IV Push, Once PRN for itching, first dose 07/23/21 7:45:00 CDT Misc 0 No 100 mL, Memoria Medication 5-24 Soln-IV, l 12:37: IV, Once, [place] 00 first dose 07/23/21 7:37:00 CDT, stop date 07/23/21 7:37:00 CDT propofol No 40 mg = 4 Jonathan kayden 5-24 mL, l 12:26: Emulsion, [place] 00 IV, Once, first dose 07/23/21 7:26:00 CDT, stop date 07/23/21 7:26:00 CDT lidocaine No 20 mg = 1 Mem oria 5-24 mL, l 12:26: Injection, [place] 00 IV, Once, first dose 07/23/21 7:26:00 CDT, stop date 07/23/21 7:26:00 CDT propofol 2021- No 80 mg = 8 Jonathan kayden 5-24 mL, l 12:22: Emulsion, [place] 00 IV, Once, first dose 07/23/21 7:22:00 CDT, stop date 07/23/21 7:22:00 CDT lidocaine No 40 mg = 2 Mem oria 5-24 mL, l 12:22: Injection, [place] 00 IV, Once, first dose 07/23/21 7:22:00 CDT, stop date 07/23/21 7:22:00 CDT midazolam No 2 mg = 2 Jonathan kayden 5-24 mL, l 12:21: Injection, [place] 00 IV, Once, first dose 07/23/21 7:21:00 CDT, stop date 07/23/21 7:21:00 CDT ketamine No 25 mg = Memori a 5-24 0.5 mL, l 12:21: Injection, Zen 00 IV, Once, first dose 07/23/21 7:21:00 CDT, stop date 07/23/21 7:21:00 CDT LR 1,000 mL 0 No 1,000 mL, M emoria 5-24 IV, 30 l 11:10: mL/hr, Zen 00 start date 07/23/21 6:10:00 CDT, 2.26, m2 Lidocaine No 0.2 mL, Memor ia 2% 0.2 mL 5-24 Injection, l IV Start 11:10: Subcutaneo Her sarmiento [[facility]] 00 us, Once PRN for other (see comment), first dose 07/23/21 6:10:00 CDT Potassium 2021- Yes TAKE 1 Memori a Chloride 5-23 TABLET BY l (Eqv-K-Tab) 18:15: MOUTH Mehreen nn 20 mEq oral 00 EVERY DAY, tablet, Dialysis extended release pantoprazol Yes TAKE 1 Jonathan kayden e 40 mg 5-23 TABLET BY l oral 18:15: MOUTH Zen delayed 00 TWICE A release DAY, GERD tablet allopurinol Yes TAKE 1 Jonathan kayden 300 mg oral 5-23 TABLET BY l tablet 18:15: MOUTH Zen 00 EVERY DAY, GOUT docusate Yes 100 mg = 1 Mem oria sodium 100 5-23 caps, l mg oral 18:15: Oral, [place] capsule 00 q6hr, PRN as needed for constipati on, Constipati on atorvastati Yes 20 mg = 1 M emoria n 20 mg 5-23 tabs, l oral tablet 18:15: Oral, Mehreen nn 00 Daily, 0 Refill(s), High Cholestero l omeprazole Yes TAKE 1 Memor ia 20 mg oral 5-23 CAPSULE BY l delayed 18:15: MOUTH Zen release 00 EVERY DAY, capsule GERD hydrALAZINE Yes 25 mg = 1 M emoria 25 mg oral 5-23 tabs, l tablet 18:14: Oral, BID, Mehreen nn 00 0 Refill(s), HTN carvedilol Yes 6.25 mg = Me moria 6.25 mg 5-23 1 tabs, l oral tablet 18:14: Oral, BID, [place] 00 0 Refill(s), HTN tamsulosin Yes 0.4 mg = 1 M emoria 0.4 mg oral 5-23 caps, l capsule 18:14: Oral, Zen 00 Daily, 0 Refill(s), BPH omeprazole No 20mg QD Take 20 mg [facility] (PriLOSEC) 3-25 03-[address] 20 MG 13:43: 00:00 daily. Hospita capsule 56 :00 l allopurinoL Yes 100mg QD Take 100 M ethodi (ZYLOPRIM) 3-[address] 300 MG 13:43: mouth Hospita tablet 52 daily. l aspirin Yes 81mg QD Take 81 mg Meth sarah (ECOTRIN) 3-[address] 81 MG 13:43: daily. Hospita enteric 52 l coated tablet calcitrioL Yes .25ug Q2D Take 0.25 M ethodi (ROCALTROL) 3-[address] 0.25 MCG 13:43: mouth Hospita capsule 52 every l other day. carvediloL 2022-0 Yes 12.5mg Q.5D Take 12.5 [facility] (COREG) 3-[address] 12.5 MG 13:43: mouth 2 Hospita tablet 52 (two) l times a day with meals. ergocalcife 202-0 Yes [id number] Q30D Take Meth sarah rol 3-25 50,000 [address] (VITAMIN 13:43: Units by Hospi ta D2) 50,000 52 mouth l unit every 30 capsule (thirty) days. of every month hydrALAZINE 2021-0 Yes 10mg Q.5D Take 10 mg [facility] (APRESOLINE 3-[address] ) 10 MG 13:43: (two) Hospita tablet 52 times a l day. magnesium 2021-0 Yes 400mg QD Take 400 Met hodi oxide 3-[address] (MAG-OX) 13:43: mouth Hospita 400 mg 52 every l (241.3 mg morning. magnesium) tablet albuterol 2021-0 Yes 2.5mg Q.5D Take 2.5 Met hodi (ACCUNEB) 3-[address] 2.5 mg /3 13:43: nebulizati Ho spita mL (0.083 52 on 2 (two) l %) times a nebulizer day as solution needed for wheezing or shortness of breath. docusate 2021-0 Yes 100mg Q.5D Take 100 Meth sarah sodium 3-[address] (COLACE) 13:43: mouth 2 Hospit a 100 MG 52 (two) l capsule times a day. acetaminoph 2021-0 Yes [id number] 1{tbl} Q6H Take 1 M ethodi en-codeine 3-[address] (TYLENOL 13:43: mouth Hospita WITH 52 every 6 l CODEINE #3) (six) 300-30 mg hours as per tablet needed for moderate pain .acute pain. albuterol 2021-0 Yes 2{puff} Inhale 2 M ethodi (PROAIR 3-[address] HFA) 90 13:43: needed for Hosp liev mcg/actuati 52 wheezing l on inhaler or shortness of breath. sodium 2021-0 Yes 650mg QD Take 650 Method i bicarbonate 3-[address] 650 mg 13:43: mouth Hospita tablet 52 daily. l furosemide Yes 40mg QD Take 40 mg M ethodi (LASIX) 40 3-[address] mg tablet 13:43: every Hospita 52 morning. l tamsulosin 2021- No .4mg QD Take 1 Meth sarah (FLOMAX) -25 -[address] 0.4 mg 00:00: 04:59 (0.4 mg Hospita capsule 00 :00 total) by l mouth daily with dinner for 30 days. sucralfate 2021- No 1g Q.25D Take 10 mL [facility] (CARAFATE) 05-24-25 ([address] 100 mg/mL 00:00: 04:59 total) by Ho spita suspension 00 :00 mouth 4 l (four) times a day before meals and nightly for 30 days. pantoprazol 2021- No 40mg QD Take 1 Met hodi e 05-24-25 tablet (40 st (Protonix) 00:00: 04:59 mg total) H ospita 40 MG EC 00 :00 by mouth l tablet daily for 30 days. valACYclovi No 500mg QD Take 1 Me thodi r (Valtrex) 05-24 04-[address] 500 MG 00:00: 04:59 (500 mg Hospita tablet 00 :00 total) by l mouth daily for 10 days. Take at 8 pm and after dialysis on dialysis days tadalafil Yes [id number] 5mg QD Take 1 U T (Cialis) 5 - tablet (5 Heal th MG tablet 00:00: mg total) 00 by mouth 1 (one) time each day. Pt will hold the daily when taking on demand. tadalafil Yes [id number] 20mg Take 1 U T (Cialis) 20 8-23 tablet (20 He alth MG tablet 00:00: mg total) 00 by mouth if needed for erectile dysfunctio n (Pt will hold the daily dose and can not take more than q 36 hours). tadalafil 2020- No [id number] 5mg QD Take 1 UT (Cialis) 5 - 11-22 tablet (5 Hea lth MG tablet 00:00: 05:59 mg total) 00 :00 by mouth 1 (one) time each day. Pt will hold the daily when taking on demand. tadalafil 2020-2020- No [id number] 20mg Take 1 UT (Cialis) 20 8-22 01-22 tablet (20 H ealth MG tablet 00:00: 05:59 mg total) 00 :00 by mouth if needed for erectile dysfunctio n (Pt will hold the daily dose and can not take more than q 36 hours). tadalafil 2020-0 2020- No [id number] 5mg QD Take 1 UT (Cialis) 5 8-22 01- tablet (5 Hea lth MG tablet 00:00: 05:59 mg total) 00 :00 by mouth 1 (one) time each day. Pt will hold the daily when taking on demand. tadalafil 2020-0 2020- No [id number] 20mg Take 1 UT (Cialis) 20 10-22- tablet (20 H ealth MG tablet 00:00: 05:59 mg total) 00 :00 by mouth if needed for erectile dysfunctio n (Pt will hold the daily dose and can not take more than q 36 hours). tadalafil 2020-0 2020- No [id number] 5mg QD Take 1 UT (Cialis) 5 10-22- tablet (5 Hea lth MG tablet 00:00: 05:59 mg total) 00 :00 by mouth 1 (one) time each day. Pt will hold the daily when taking on demand. tadalafil 2020-2020- No [id number] 20mg Take 1 UT (Cialis) 20 -22 01- tablet (20 H ealth MG tablet 00:00: 05:59 mg total) 00 :00 by mouth if needed for erectile dysfunctio n (Pt will hold the daily dose and can not take more than q 36 hours). allopurinoL 0 Yes 300mg QD Take 300 M ethodi (ZYLOPRIM) 7-[address] 300 MG 22:35: mouth Hospita tablet 26 daily. l aspirin 2020-0 Yes 81mg QD Take 81 mg Meth sarah (ECOTRIN) 7-[address] 81 MG 22:35: daily. Hospita enteric 26 l coated tablet calcitrioL Yes .25ug Q2D Take 0.25 M ethodi (ROCALTROL) 7-[address] 0.25 MCG 22:35: mouth Hospita capsule 26 every l other day. carvediloL 0 Yes 12.5mg Q.5D Take 12.5 [facility] (COREG) 7-[address] 12.5 MG 22:35: mouth 2 Hospita tablet 26 (two) l times a day with meals. ergocalcife Yes [id number] Q30D Take Meth sarah rol 7-22 50,000 st (VITAMIN 22:35: Units by Hospi ta D2) 50,000 26 mouth l unit every 30 capsule (thirty) days. of every month hydrALAZINE Yes 10mg Q.5D [...] for wheezing or shortness of breath. docusate 0 Yes 100mg Q.5D Take 100 Meth sarah sodium 7-[address] (COLACE) 22:35: mouth 2 Hospit a 100 MG 26 (two) l capsule times a day. acetaminoph 0 Yes [id number] 1{tbl} Q6H Take 1 M ethodi en-codeine 7-[address] (TYLENOL 22:35: mouth Hospita WITH 26 every 6 l CODEINE #3) (six) 300-30 mg hours as per tablet needed for moderate pain .acute pain. omeprazole Yes 20mg QD Take 20 mg M ethodi (PriLOSEC) 7-[address] 20 MG 22:35: daily. Hospita capsule 26 l albuterol Yes 2{puff} Inhale 2 M ethodi (PROAIR 7- puffs as st HFA) 90 22:35: needed [...] tablet 22:35: every Hospita 26 morning. l hydrALAZINE Yes hydralazin UT (Apresoline 09-20 e 10 mg Healt h ) 10 MG 00:00: tablet tablet 00 TAKE 1 TABLET BY MOUTH TWICE A DAY aspirin 81 Yes 1{tbl} QD Take 1 UT MG EC 09-20 tablet by Health tablet 00:00: mouth 1 00 (one) time each day. tamsulosin 2020- No .4mg QD Take 1 Meth sarah (FLOMAX) 09-20 08-[address] 0.4 mg 00:00: 04:59 (0.4 mg Hospita capsule 00 :00 total) by l mouth daily with dinner for 30 days. methylPREDN 2020- No follow Met hodi ISolone 09-20-[address] (Medrol, 00:00: 04:59 directions Mj [...] needed for l erectile dysfunctio n. amLODIPine No 5mg QD Take 1 Meth sarah (NORVASC) 5 -13 08-14 tablet (5 st mg tablet 00:00: 04:59 mg total) Ho spita 00 :00 by mouth l daily for 30 days. sodium No 650mg QD Take 1 [facility] bicarbonate -13 08-[address] 650 mg 00:00: 04:59 (650 [...] up to 30 days. acetaminoph 2020- No [id number] 1{tbl} Q6H Take 1 [facility]i en-codeine 5-13 05-[address] (TYLENOL 00:00: 04:59 mouth Hospita WITH 00 :00 every 6 l CODEINE #3) (six) 300-30 mg hours as per tablet needed for moderate pain or severe pain for up to 7 days .acute pain. Tadalafil 5 Tadalafil 5 2019-0 Yes SILVINO COSME 1 TAKE 1 UT MG Oral MG Oral 8-24 M.D. TABLET Physici Tablet Tablet 00:00: BEDTIME ans 00 Tadalafil Tadalafil 2020-0 Yes SILVINO COSME TAKE 1 UT 20 MG Oral 20 MG Oral 8-24 M.D. TABLET 1 Physici Tablet Tablet 00:00: HOUR ans 00 BEFORE ACTIVITY NEEDED. Aspirin 81 Aspirin 81 Yes UT MG TABS MG TABS Physici ans Allopurinol Allopurinol Yes U T 300 MG Oral 300 MG Oral P hysici Tablet Tablet ans Magnesium Magnesium Yes UT 400 MG CAPS 400 MG CAPS P hysici ans Metoprolol Metoprolol Yes UT Tartrate 50 Tartrate 50 P hysici MG Oral MG Oral ans Tablet Tablet Carvedilol Carvedilol Yes UT 3.125 MG 3.125 MG Physici Oral Tablet Oral Tablet a ns Tamsulosin Tamsulosin Yes UT HCl 0.4 MG HCl 0.4 MG Phy sici CP24 CP24 ans raNITIdine raNITIdine Yes UT 150 Max 150 Max Physici Strength Strength ans TABS TABS Calcitriol Calcitriol Yes UT CAPS CAPS Physici ans amLODIPine amLODIPine Yes UT Besylate 10 Besylate 10 P hysici MG Oral MG Oral ans Tablet Tablet Atorvastati Atorvastati Yes U T n Calcium n Calcium Physi ci 20 MG Oral 20 MG Oral ans Tablet Tablet Cyclobenzap Cyclobenzap Yes U T rine HCl - rine HCl - Phy sici 10 MG Oral 10 MG Oral ans Tablet Tablet Immunizations Ordered Immunization Filled Immunization Date Status Commen ts Source Name Name [email or web address] 2020-04-25 Completed Meth odist VACCINATION 00:00:00 [facility] COVID19 [facility] 2020-04-25 Completed Meth odist VACCINATION 00:00:00 [facility] NibuID-19 [facility] 2020-04-04 Completed Meth odist VACCINATION 00:00:00 [facility] PFIZER COVID-19 [facility] 2020-04-04 Completed Meth odist VACCINATION 00:00:00 Hospital Vital Signs Vital Name Observation Time Observation Value Comments Source Systolic blood 2021-10-28 149 mm[Hg] [facility] pressure 13:19:00 Diastolic blood 2021-10-28 75 mm[Hg] [facility] pressure 13:19:00 Heart rate 2021-10-28 81 /min [facility] 13:19:00 Body temperature 2021-10-28 36.56 [facility] 13:19:00 Body height 2021-10-28 188 cm [facility] 13:19:00 Body weight 2021-10-28 110 kg [facility] 13:19:00 BMI 2021-10-28 31.14 kg/m2 [facility] 13:19:00 Respitory Rate 2021-07-23 [facility] 13:08:00 Systolic (mm Hg) 2021-07-23 [facility] 13:08:00 Diastolic (mm Hg) 2021-07-23 [facility] ermann 13:08:00 Heart Rate 2021-07-23 [facility] 12:50:00 Respitory Rate 2021-07-23 [facility] 12:50:00 Systolic (mm Hg) 2021-07-23 [facility] 12:50:00 Diastolic (mm Hg) 2021-07-23 [facility] H ermann 12:50:00 Heart Rate 2021-07-23 [facility] 12:40:00 Respitory Rate 2021-07-23 [facility] 12:40:00 Systolic (mm Hg) 2021-07-23 [facility] 12:40:00 Diastolic (mm Hg) 2021-07-23 [facility] H ermann 12:40:00 Temperature Oral 2021-07-23 36.3 Zari [facility] rmann (F) 12:30:00 Heart Rate 2021-07-23 [facility] 12:30:00 Temperature Oral 2021-07-23 36.7 Zari [facility] rmann (F) 11:18:00 Height 2021-07-23 182.88 cm [facility] 11:18:00 Weight 2021-07-23 [facility] 11:18:00 Height 2021-07-22 182.88 cm [facility] 18:07:00 Weight 2021-07-22 [facility] 18:07:00 Systolic blood 2021-05-24 137 mm[Hg] [facility] pressure 16:24:36 Hospital Diastolic blood 2021-05-24 85 mm[Hg] [facility] pressure 16:24:36 Hospital Heart rate 2021-05-24 70 /min [facility] 16:24:36 Hospital Body temperature 2021-05-24 35.89 Zari [facility] 16:24:36 Hospital Respiratory rate 2021-05-24 18 /min [facility] 16:24:36 Hospital Oxygen saturation 2021-05-24 98 /min [facility] in Arterial blood 16:24:36 Hospital by Pulse oximetry Body height 2021-05-20 188 cm [facility] 22:57:00 Hospital Body weight 2021-05-20 105.4 kg [facility] 22:57:00 Hospital BMI 2021-05-20 29.83 kg/m2 [facility] 22:57:00 Hospital Oxygen saturation 2020-09-20 96 /min [facility] in Arterial blood 21:18:00 Hospital by Pulse oximetry Heart rate 2020-09-20 69 /min [facility] 21:16:00 Hospital Respiratory rate 2020-09-20 18 /min [facility] 21:16:00 Hospital Systolic blood 2020-09-20 111 mm[Hg] [facility] pressure 20:34:00 Hospital Diastolic blood 2020-09-20 54 mm[Hg] [facility] pressure 20:34:00 Hospital Body temperature 2020-09-20 37.17 Zari [facility] 16:58:17 Hospital Body weight 2020-09-20 109.272 kg [facility] 09:42:21 Hospital BMI 2020-09-20 30.93 kg/m2 [facility] 09:42:21 Hospital Body height 2020-07-20 188 cm [facility] 12:39:00 Hospital Heart Rate 2020-04-23 56 /min Location: [facility] 17:10:00 Brachial Artery; Systolic blood 2020-04-23 186 mm[Hg] Location: [facility] pressure 17:10:00 Position: Sitting Diastolic blood 2020-04-23 82 mm[Hg] Location: [facility] 17:10:00 Position: Sitting Body height 2020-04-23 74 [in_us] [facility] 17:10:00 Weight 2020-04-23 240 [lb_av] [facility] 17:10:00 Body mass index 2020-04-23 30.81 kg/m2 [facility] (BMI) [Ratio] 17:10:00 Body temperature 2020-04-23 97.4 [degF] Method: [facility] 17:10:00 Temporal Systolic blood 2019-10-24 136 mm[Hg] Location: [facility] pressure 17:12:00 Position: Sitting Diastolic blood 2019-10-24 71 mm[Hg] Location: [facility] pressure 17:12:00 Position: Sitting Body height 2019-10-24 74 [in_us] [facility] 17:12:00 Weight 2019-10-24 250 [lb_av] [facility] 17:12:00 Body mass index 2019-10-24 32.1 kg/m2 [facility] (BMI) [Ratio] 17:12:00 Heart Rate 2019-10-24 60 /min Location: [facility] 17:12:00 Brachial Artery; Body temperature 2019-10-24 97.8 [degF] Method: [facility] 17:12:00 Temporal Procedures Procedure Date / Time Performing Source Performed Clinician POCT URINALYSIS W/O SCOPE 2021-10-28 Carmelina Silvino [facility] 22:11:00 ESOPHAGOGASTRODUODENOSCOPY 2021-07-23 Madelin Zaldivar W/BIOPSY [id number] (N/A)<sup>1</sup> 12:27:00 HC COMPLETE BLD COUNT W/AUTO DIFF 2021-05-24 David Gonzalez 08:24:00 [facility] BASIC METABOLIC PANEL 2021-05-24 BrynnDavid 08:24:00 Hospital MAGNESIUM LEVEL 2021-05-24 BrynnDavid 08:24:00 Hospital PHOSPHORUS LEVEL 2021-05-24 David Gonzalez 08:24:00 Hospital ESTIMATED GFR 2021-05-24 David Gonzalez 08:24:00 [facility] SURGICAL PATHOLOGY REQUEST 2021-05-23 David Gonzalez Metho dist 20:46:00 [facility] FL ESOPHAGRAM SINGLE CONTRAST 2021-05-23 Robb Barry thodist 20:20:45 [facility] ESOPHAGOGASTRODUODENOSCOPY (EGD) 2021-05-23 Ciro Toro [facility] 17:37:00 [facility] HC COMPLETE BLD COUNT W/AUTO DIFF 2021-05-23 BrynnDavid [facility] 09:35:00 [facility] BASIC METABOLIC PANEL 2021-05-23 [facility] 09:35[facility]00 [facility] MAGNESIUM LEVEL 2021-05-23 [facility]00 [facility] PHOSPHORUS LEVEL 2021-05-23 [facility] 09:35[facility]00 Hospital ESTIMATED GFR 2021-05-23 [facility] 09:35[facility]00 Hospital NM HEPATOBILIARY W PHARM 2021-05-22 Jaret Decker Met hodist 15:49:11 [facility] HC COMPLETE BLD COUNT W/AUTO DIFF 2021-05-22 Sharona Decker Jainism 09:37:00 [facility] BASIC METABOLIC PANEL 2021-05-22 Jaret Decker ist 09:37:00 [facility] TROPONIN T 2021-05-22 MtgracielaJaret Jainism 09:37:00 [facility] COVID-19 SEROLOGY PATIENT 2021-05-22 Zenia Navarro ist SURVEILLANCE 09:37:00 [facility] HEPATITIS B SURFACE ANTIGEN 2021-05-22 Ned Velasquez Meth odist 09:37:00 [facility] HEPATITIS B SURFACE AB, 2021-05-22 Ned Velasquezis t QUANTITATIVE 09:37:00 [facility] HEPATITIS B SURFACE ANTIBODY 2021-05-22 Ned Velasquez Met hodist 09:37:00 [facility] ESTIMATED GFR 2021-05-22 MtJaret jackson Jainism 09:37:00 [facility] COVID-19 ANTI-SPIKE IGG ANTIBODY 2021-05-22 Zenia Navarroist TITER 09:37:00 [facility] CELL COUNT AND DIFFERENTIAL, BODY 2021-05-22 Giancarlo Mansfield FLUID 03:08:00 Hospital AEROBIC CULTURE 2021-05-22 Giancarlo Mansfield 03:08:00 Hospital ANAEROBIC CULTURE 2021-05-22 Giancarlo Mans[place] 03:08:00 Hospital GRAM STAIN 2021-05-22 Giancarlo Mansfield 03:08:00 Hospital US ABDOMEN COMPLETE 2021-05-21 Jaret Decker t 20:31:16 [facility] POC GLUCOSE 2021-05-21 Jaret Decker 16:30:[address] [facility] [address] CHEST WO CONTRAST 2021-05-21 Robb Barry 14:33:49 [facility] LACTIC ACID LEVEL, SEPSIS - NOW 2021-05-21 Giancarlo Mansfield AND REPEAT 2X EVERY 3 HOURS 08:50:00 Hosp ital HC COMPLETE BLD COUNT W/AUTO DIFF 2021-05-21 Giancarlo Mansfield 08:50:00 Hospital PROTHROMBIN TIME WITH INR 2021-05-21 Giancarlo Mansfield ist 08:50:00 [facility] COMPREHENSIVE METABOLIC PANEL 2021-05-21 Giancarlo Mansfield thodist 08:50:00 Hospital ESTIMATED GFR 2021-05-21 Giancarlo Mansfield 08:50:00 Hospital LACTIC ACID LEVEL, SEPSIS - NOW 2021-05-21 Giancarlo Mansfield AND REPEAT 2X EVERY 3 HOURS 05:12:00 Hosp ital TROPONIN T 2021-05-21 Giancarlo Mansfield 05:12:00 Hospital PROCALCITONIN 2021-05-21 Giancarlo Mansfield 05:12:[address] ABDOMEN PELVIS WO CONTRAST 2021-05-21 Gus Jackson thodist 04:00:38 Hospital BLOOD CULTURE, AEROBIC & 2021-05-21 Manule, Gus [facility]i [facility] ANAEROBIC 02:47:00 Hospital TROPONIN T 2021-05-21 Giancarlo Mansfield 02:45:00 Hospital LACTIC ACID LEVEL, SEPSIS - NOW 2021-05-21 Giancarlo Mansfield AND REPEAT 2X EVERY 3 HOURS 02:45:00 Hosp ital BLOOD CULTURE, AEROBIC & 2021-05-21 Jackson, Gus [facility] ANAEROBIC 02:44:00 Hospital URINALYSIS SCREEN AND MICROSCOPY, 2021-05-21 Gus Jackson WITH REFLEX TO CULTURE 01:52:00 Hospital XR CHEST 1 VW PORTABLE 2021-05-21 Gus Jackson 00:03:55 Hospital GROUP A STREP, RAPID ANTIGEN 2021-05-20 Gus Jackson hodist 23:46:00 Hospital STREP SCREEN CULTURE 2021-05-20 Gus Jackson 23:46:00 Hospital HC COMPLETE BLD COUNT W/AUTO DIFF 2021-05-20 Gus Jackson 23:42:00 Hospital COMPREHENSIVE METABOLIC PANEL 2021-05-20 Gus Jackson thodist 23:42:00 Hospital LIPASE LEVEL 2021-05-20 Gus Jackson 23:42:00 Hospital TROPONIN T 2021-05-20 Giancarlo Mansfield 23:42:00 Hospital B NATRIURETIC PEPTIDE 2021-05-20 Gus Jackson 23:42:00 Hospital ESTIMATED GFR 2021-05-20 Gus Jackson 23:42:00 Hospital RESPIRATORY PATHOGEN PANEL WITH 2021-05-20 Gus Jackson COVID-19 RT-PCR 23:42:00 Hospital ECG 12-LEAD 2021-05-20 Giancarlo Mansfield 23:37:03 Hospital URINE CULTURE 2021-05-20 Gus Jackson 23:34:00 Hospital ECG ED PRELIMINARY INTERPRETATION 2021-05-20 Gus Jackson 23:32:47 Hospital HEPATITIS B SURFACE ANTIBODY 2020-09-20 Jeremy Cool ethodist 06:49:00 [facility] HEPATITIS B SURFACE ANTIGEN 2020-09-20 Jeremy Cool thodist 06:49:00 Hospital AEROBIC CULTURE 2020-09-19 [place] 23:57:00 Hospital ANAEROBIC CULTURE 2020-09-19 [place] 23:57:00 Hospital GRAM STAIN 2020-09-19 [place]ina [place] 23:57:00 Hospital CELL COUNT AND DIFFERENTIAL, BODY 2020-09-19 Royce Park FLUID 23:56:00 Hospital HEPATITIS B SURFACE AB, 2020-09-[address] QUANTITATIVE 22:25:00 Hospital TROPONIN 2020-09-19 Maryan Oneill 22:25:[address] LUMBAR SPINE WO CONTRAST 2020-09-19 Maryan Oneill ethodist 18:46:23 Hospital XR CHEST 1 VW PORTABLE 2020-09-19 Maryan Oneill Method ist 18:00:32 Hospital ECG 12-LEAD 2020-09-19 Maryan Oneill [facility] 17:57:30 Hospital HC COMPLETE BLD COUNT W/AUTO DIFF 2020-09-19 Ludmila Oneill [facility] 17:44:00 Hospital COMPREHENSIVE METABOLIC PANEL 2020-09-19 Maryan Oneill [facility] 17:44:00 Hospital CREATINE KINASE, TOTAL (CPK) 2020-09-19 Maryan Oneill [facility] 17:44:00 Hospital TROPONIN 2020-09-19 Maryan Oneill [facility] 17:44:00 Hospital LIPASE LEVEL 2020-09-19 Maryan Oneill [facility] 17:44:00 Hospital B NATRIURETIC PEPTIDE 2020-09-[address] 17:44:00 Hospital ESTIMATED GFR 2020-09-19 Maryan Oneill [facility] 17:44:00 Hospital ECG ED PRELIMINARY INTERPRETATION 2020-09-19 Ludmila Oneill [facility] 17:27:13 Hospital HC COMPLETE BLD COUNT W/AUTO DIFF 2020-07-25 Jazmyn Torresist 08:23:00 Hospital PROTHROMBIN TIME WITH INR 2020-07-25 Jazmyn Torres Method ist 08:23:00 Hospital COMPREHENSIVE METABOLIC PANEL 2020-07-25 Jazmyn Torres thodist 08:23:00 Hospital MAGNESIUM LEVEL 2020-07-25 Jazmyn Torresist 08:23:00 Hospital PHOSPHORUS LEVEL 2020-07-25 Jazmyn Torresist 08:23:00 Hospital ESTIMATED GFR 2020-07-25 Jazmyn Torresist 08:23:[address] ABDOMEN PELVIS WO CONTRAST 2020-07-25 Jazmyn Torres thodist 01:22:52 [facility] COVID-19 QUALITATIVE RT-PCR 2020-07-24 Brittni Del Valleodist 07:34:00 [facility] URINE CULTURE 2020-07-24 Brittni Del Valle 06:38:00 [facility] URINALYSIS SCREEN AND MICROSCOPY, 2020-07-24 Eligio, Brent Dietz WITH REFLEX TO CULTURE 06:38:00 [facility] COMPREHENSIVE METABOLIC PANEL 2020-07-24 Brittni Del Valle 06:35:00 [facility] HC COMPLETE BLD COUNT W/AUTO DIFF 2020-07-24 Eligio, Brent Dietz 06:35:00 [facility] PROTHROMBIN TIME WITH INR 2020-07-24 Brittni Del Valle 06:35:00 [facility] PARTIAL THROMBOPLASTIN TIME (PTT) 2020-07-24 Eligio, Brent Dietz 06:35:00 [facility] ESTIMATED GFR 2020-07-24 Brittni Del Valle 06:35:00 [facility] AR AN ELECTIVE ENDOTRACHEAL 2020-07-23 Isabelle Wetzel AIRWAY 16:20:31 Hospital REMOVAL, CATHETER, DIALYSIS, 2020-07-23 Dominique Falcon PERITONEAL 16:03:00 E. Hospital ESTIMATED GFR 2020-07-23 Dominique Falcon 13:54:00 E. Hospital POC PANEL 2020-07-23 Dominique Falcon 13:54:00 E. Hospital ESTIMATED GFR 2020-07-23 Dominique Falcon 13:43:00 E. Hospital POC PANEL 2020-07-23 Dominique Falcon 13:43:00 E. Hospital COMPREHENSIVE METABOLIC PANEL 2020-07-23 Isabelle Wetzel 13:30:00 Hospital ABO AND RH CONFIRMATION 2020-07-23 Dominique Falcon dist 13:30:00 E. Hospital ESTIMATED GFR 2020-07-23 Isabelle Wetzel 13:30:00 Hospital COVID-19 QUALITATIVE RT-PCR 2020-07-20 Dominique Falcon 13:14:00 E. Hospital TYPE AND SCREEN 2020-07-20 Violette Forbes 13:14:00 Hospital HC COMPLETE BLD COUNT W/AUTO DIFF 2020-07-20 Link Forbes se 13:14:00 Hospital HEMOGLOBIN A1C 2020-07-20 Violette Forbes 13:14:00 Hospital BASIC METABOLIC PANEL 2020-07-12 Dominique Falcon 09:00:00 E. Hospital MAGNESIUM LEVEL 2020-07-12 Dominique Falcon 09:00:00 E. Hospital PHOSPHORUS LEVEL 2020-07-12 Dominique Falcon 09:00:00 E. Hospital HC COMPLETE BLD COUNT W/AUTO DIFF 2020-07-12 Kevin Falcon 09:00:00 E. Hospital PARATHYROID HORMONE 2020-07-12 Dominique Falcon 09:00:00 E. Hospital VITAMIN D 25 HYDROXY LEVEL 2020-07-12 Dominique Falcon 09:00:00 E. Hospital ESTIMATED GFR 2020-07-12 Dominique Falcon 09:00:00 E. Hospital AR AN ELECTIVE ENDOTRACHEAL 2020-07-12 Megan Felix AIRWAY 01:07:00 [facility] LAPAROSCOPIC REMOVAL OR 2020-07-11 Dominique Falcon dist REPOSITIONING OF PERITONEAL 22:54:00 E. Hosp ital DIALYSIS CATHETER HC COMPLETE BLD COUNT W/AUTO DIFF 2020-07-11 Kieran Aquino 10:12:00 Hospital COMPREHENSIVE METABOLIC PANEL 2020-07-11 Constantin Aquino 10:12:00 Hospital MAGNESIUM LEVEL 2020-07-11 Mariajose Donato 10:12:00 [facility] PHOSPHORUS LEVEL 2020-07-11 Mariajose Donato 10:12:00 [facility] ESTIMATED GFR 2020-07-11 Constantin Aquino 10:12:00 Hospital XR ABDOMEN 1 VW 2020-07-11 Dominique Falcon 00:50:58 E. Hospital COVID-19 QUALITATIVE RT-PCR 2020-07-10 Constantin Aquino 19:54:00 Hospital XR CHEST 1 VW PORTABLE 2020-07-[address] 18:39:03 Hospital ECG ED PRELIMINARY INTERPRETATION 2020-07-10 Kieran Aquino 18:35:21 Hospital ECG 12-LEAD 2020-07-10 Constantin Aquino 18:12:03 Hospital HC COMPLETE BLD COUNT W/AUTO DIFF 2020-07-10 Kieran Aquino 18:10:00 Hospital PROTHROMBIN TIME WITH INR 2020-07-10 Constantin Aquino Meth odist 18:10:00 Hospital PARTIAL THROMBOPLASTIN TIME (PTT) 2020-07-10 Kieran Aquino 18:10:00 Hospital COMPREHENSIVE METABOLIC PANEL 2020-07-10 Constantin Aquino 18:10:00 Hospital TROPONIN 2020-07-10 Constantin Aquino 18:10:00 Hospital B NATRIURETIC PEPTIDE 2020-07-10 Constantin Aquinois t 18:10:00 Hospital ESTIMATED GFR 2020-07-10 Constantin Aquino 18:10:00 Hospital CREATINE KINASE, TOTAL (CPK) 2020-07-10 Constantin Aquino ethodist 18:10:[address] Abdomen/Pelvis w/wo contrast 2019-10-24 [facility] [id number] 00:00:00 CT Chest wo contrast [id number] 2019-10-24 [facility] 00:00:00 Aortic aneurysm repair 2015-06-01 [facility] 05:00:00 History of Abdominal aortic [facility] aneurysm repair Esophagogastroduodenoscopy [facility] [place] Colonoscopy [facility] Plan of Care Planned Activity Planned Date Details Comments Source Future Scheduled 2021-12-14 Hepatitis C screening [facility] Test 06:18:15 (procedure) [code = 082961082] Future Scheduled 2021-12-14 COLONOSCOPY SCREENING [facility] Test 06:18:15 [code = COLONOSCOPY SCREENING] Future Scheduled 2021-12-14 SHINGLES VACCINES (1 Met [facility] Test 06:18:15 of 2) [code = SHINGLES VACCINES (1 of 2)] Future Scheduled 2021-12-14 HEPATITIS B VACCINES Met [facility] Test 06:18:15 (1 of 3 - Risk 3-dose series) [code = HEPATITIS B VACCINES (1 of 3 - Risk 3-dose series)] Future Scheduled 2021-12-14 COVID-19 VACCINE (4 - Me [facility] Test 06:18:15 Booster for Pfizer series) [code = COVID-19 VACCINE (4 - Booster for Pfizer series)] Future Scheduled 2021-12-14 65[facility] [facility] 06:18:15 VACCINE (2 - PPSV23 if available, else PCV20) [code = 65+ PNEUMOCOCCAL VACCINE (2 - PPSV23 if available, else PCV20)] Future Scheduled 2021-12-14 INFLUENZA VACCINE [facility] Test 06:18:15 [code = INFLUENZA VACCINE] Future Scheduled DIABETES: RETINAL EYE [facility] EXAM [code = DIABETES: RETINAL EYE EXAM] Future Scheduled DIABETIC FOOT EXAM [facility] Test [code = DIABETIC FOOT EXAM] Future Scheduled Hep[facility] C [facility] (procedure) [code = 250190264] Future Scheduled COLONOSCOPY SCREENING [facility] [code = COLONOSCOPY SCREENING] Future Scheduled SHINGLES VACCINES (#1) [facility] Test [code = SHINGLES VACCINES (#1)] Future Scheduled Screening for [facility] Test malignant neoplasm of lung (procedure) [code = 878069444] Future Scheduled 65+ [facility]OCOCC[address] [facility] Test VACCINE (2 of 4 - PPSV23) [code = 65+ PNEUMOCOCCAL VACCINE (2 of 4 - PPSV23)] Future Scheduled INFLUENZA VACCINE [facility] Test [code = INFLUENZA VACCINE] Encounters Start End Encounter Admission Attending Care Care Encounter Source Date/Time Date/Time Type Type Clinicians Facility Department ID 2021-07-12 Outpatient DAYANA GOEL [facility] [id number] [facility] 13:01:44 2021 Outpatient ANJELICA [facility] [id number] [place] 01:03:11 formerly [facility] 2018-06-23 Inpatient DAYANA GOEL [facility] [id number] [facility] 10:22:21 2022-05-05 2022-05-05 Outpatient SILVINO COSME [facility] [id number] [place] 08:45:00 08:45:00 [facility] 2021-12-24 2021-12-24 Outpatient nullNestor [facility] [id number] Memoria 05:40:58 08:45:00 compa Zaldivar 2021-11-08 2021-12-07 Outpatient DAYANA GOEL [facility] [id number] [facility] 11:00:00 23:59:00 2021-10-28 2021-10-28 Office SILVINO COSME 6400 1.2.840.114 [id number] [place] 08:45:00 08:45:00 Visit JAXON HAMMOND [id number] [facility] 9.2.7.2.686 [id number] 2021-09-06 2021-10-05 Out[facility] [id number] 11:00:00 23:59:00 ELENA RIVERA 2021-07-02 2021-07-31 Outpatient PATARROYO [facility] CAR [address]28 [facility] 10:09:00 23:59:00 VIVEROSFILIPPO 2021-07-23 2021-07-23 Outpatient [facility] [id number] Memoria 10:49:41 13:25:00 [facility] 2021-07-23 2021-07-23 Outpatient nullFlavo [facility] [id number] Memoria 05:49:41 08:25:00 [facility] 2021-07-23 2021-07-23 Outpatient Cortez, [id number] 05:49:41 08:25:00 Ciro Hutchison 8 2021-06-12 2021-06-12 Cedric Toro, 1.2.840.1 [id number] Methodi 00:00:00 00:00:00 Only Ciro 96497.1.[address] Oleg 3.430.2.7 omar Moy3.795052 l .8 2021-05-09 2021-06-07 Outpatient DE MHH [facility] [id number] [facility] 07:44:00 23:59:00 ELENA RIVERA 2021 2021-06-06 [id number] 11:00:00 23:59:00 ELENA RIVERA 2021-05-20 2021-05-24 [facility] Gus Jackson 1.2.840.1 [id number] Methodi 18:07:00 13:42:00 Ke Alaniz [address]268.1.[address] Giancarlo [place] 3.430.2.7 H ospita CristianeulalioJaret aguilar Amarachi .3.531907 l David Gonzalez .8 2021-05-20 2021-05-24 Inpatient DAVID GONZALEZ [facility] [id number] [place] 00:00:00 00:00:[address] 2021-05-23 2021-05-23 Anesthesia Julia Clements 1.2.840.1 [id number] Methodi 12:44:00 13:00:00 Event Dylon Krishnamurthy 19241.1.[address] 3.430.2.7 Hospit a .3.204154 l .8 2021-05-23 2021-05-23 Surgery Cortez 1.2.840.1 [id number] Methodi 12:20:00 12:45:[address] Oleg 3.430.2.7 Ho spita i .3.799373 l .8 2021-05-20 2021-05-20 Travel 1.2.840.1 1.2.872.539 [id number] Methodi 00:00:00 00:00:[address] 3.430.2.7 0.2.7.3.698 Ho spita .3.079534 084.8 l .8 2021-04-08 2021-05-07 Outpatient DE [facility] [id number] [facility] 11:55:00 23:59:00 ELENA RIVERA 2021-04-29 2021-04-29 Office Silvino Cosme [facility] 6400 1.2.840.114 [id number] [place] 09:00:00 09:30:[address] [id number] Health 9.2.7.2.686 [id number] 2021-03-05 2021-04-03 Outpatient DE [facility] [id number] [facility] 11:00:00 23:59:00 ELENA RIVERA 2021-02-04 2021-03-05 Outpatient DE [facility] 9622 [facility] 11:00:00 23:59:00 ELENA RIVERA 2021-02-06 2021-03-01 Outpatient ANJELICA, [facility] [id number] [facility] 08:58:00 18:00:00 ANA 2021-02-11 2021-02-11 EXT MHH OP de EXT MSRDP 1.2.840.114 1 [id number] [place] 00:00:00 00:00:00 [facility], LOCATION [id number] On License Of [facility] 9.2.7.2.686 [id number] 2021-02-11 2021-02-11 EXT MHH OP de EXT MSRDP 1.2.840.114 1 [id number] [place] 00:00:00 00:00:00 [facility], LOCATION [id number] On License Of [facility] 9.2.7.2.686 [id number] 2021-01-02 2021-01-02 EXT MHH OP de EXT MSRDP 1.2.840.114 1 [id number] [place] 00:00:00 00:00:00 [facility], LOCATION [id number] On License Of [facility] 9.2.7.2.686 [id number] 2021-01-02 2021-01-02 EXT MHH OP de EXT MSRDP 1.2.840.114 1 [id number] [place] 00:00:00 00:00:00 [facility], LOCATION [id number] [facility] 9.2.7.2.686 [id number] 2021-01-01 2021-01-01 Outpatient DE [facility] [id number] [facility] 11:00:00 11:00:00 ELENA RIVERA 2020-11-30 2020-12-29 Outpatient DE [facility] [id number] [facility] 15:00:00 23:59:00 ELENA RIVERA 2020-11-30 2020-12-29 Outpatient DE [facility] [id number] [facility] 11:00:00 23:59:00 ELENA RIVERA 2020-12-27 2020-12-27 EXT MHH OP de EXT MSRDP 1.2.840.114 1 [id number] [place] 00:00:00 00:00:00 Goljackson, LOCATION [id number] Health Elena 9.2.7.2.686 [id number] 2020-12-27 2020-12-27 EXT MHH OP de EXT MSRDP 1.2.840.114 1 [id number] [place] 00:00:00 00:00:00 [place], LOCATION [id number] Health Elena 9.2.7.2.686 [id number] 2020-12-03 2020-12-03 EXT MHH OP de EXT MSRDP 1.2.840.114 1 [id number] [place] 00:00:00 00:00:00 [place], LOCATION [id number] Health [facility] 9.2.7.2.686 [id number] 2020-12-03 2020-12-03 EXT MHH OP de EXT MSRDP 1.2.840.114 1 [id number] [place] 00:00:00 00:00:00 Shabnam, LOCATION [id number] Health Elena 9.2.7.2.686 [id number] 2020-10-31 2020-11-09 Outpatient DE [facility] [id number] [facility] 11:00:00 23:59:00 ELENA RIVERA 2020-10-22 2020-10-22 Office Carmelina, Silvino UTP 6400 1.2.840.114 [id number] [place] 07:47:22 08:17:[address] [id number] Health 9.2.7.2.686 [id number] 2020-10-12 2020-10-12 EXT MHH OP de EXT MSRDP 1.2.840.114 1 [id number] [place] 00:00:00 00:00:00 [place], LOCATION [id number] Health Elena 9.2.7.2.686 [id number] 2020-10-12 2020-10-12 EXT MHH OP de EXT MSRDP 1.2.840.114 1 [id number] [place] 00:00:00 00:00:00 Shabnam, LOCATION [id number] On License Of [facility] 9.2.7.2.686 [id number] 2020-08-30 2020-09-28 Outpatient HASBUN, HH [facility] [address] [facility] 11:00:00 23:59:00 [place] 2020-08-30 2020-09-28 Outpatient ANJELICA, [facility] [address] [facility] 11:00:00 23:59:00 ANA 2020-09-19 2020-09-20 Emergency ElmerMaryan riggins Law. 1.2.840.1 [id number] Methodi 12:17:00 17:35:00 [facility] [address] 3.430.2.7 Hospit a .3.557114 l .8 2020-09-19 2020-09-19 Travel 1.2.840.1 1.2.310.062 9548 705180 Methodi 00:00:00 00:00:[address] 3.430.2.7 0.2.7.3.698 Ho spita .3.445064 084.8 l .8 2020-08-15 2020-08-15 EXT MHH OP Hasbun, EXT MSRDP 1.2.840.114 1 [id number] [place] 00:00:00 00:00:00 [place] LOCATION 350.1.13.58 H ealth 9.2.7.2.686 [id number] 0 2020-08-15 2020-08-15 EXT MHH OP Hasbun, EXT MSRDP 1.2.840.114 1 [id number] [place] 00:00:00 00:00:00 [place] LOCATION 350.1.13.58 H ealth 9.2.7.2.686 [id number] 0 2020-08-14 2020-08-14 [place] [address].2.840.1 [id number] Methodi 09:57:50 10:57:04 Visit Dominique Choudhury 82409.1.1 600 s t 3.430.2.7 Hospit a .3.360783 l .8 2020-08-14 2020-08-14 Travel 1.2.840.1 1.2.154.771 8295 [id number] Methodi 00:00:00 00:00:[address] 3.430.2.7 0.2.7.3.698 Ho spita .3.686820 084.8 l .8 2020-07-31 2020-07-31 Travel 1.2.840.1 1.2.318.903 4521 961500 Methodi 00:00:00 00:00:[address] 3.430.2.7 0.2.7.3.698 Ho spita .3.437050 084.8 l .8 2020-07-24 2020-07-25 Emergency Brittni Del Valle 1.2.84 0.1 [id number] Methodi 01:19:00 15:25:00 Jazmyn Torres [address]40.1.[address] Priyanka [place] 3.430.2.7 Hospita .3.851829 l .8 2020-07-24 2020-07-24 Travel 1.2.840.1 1.2.098.870 [id number] Methodi 00:00:00 00:00:[address] 3.430.2.7 0.2.7.3.698 Ho spita .3.096017 084.8 l .8 2020-07-23 2020-07-23 [facility] 1.2.840.1 [id number] Methodi 07:07:00 15:31:00 Encounter Dominique Choudhury 80924.1.[address] 3.430.2.7 Hospit a .3.200351 l .8 2020-07-23 2020-07-23 Anesthesia Isabelle Wetzel. 1.2.840.1 10 [id number] Methodi 11:04:00 12:42:00 Event Violette Forbes 55671.1.[address] 3.430.2.7 Hospit a .3.990907 l .8 2020-07-23 2020-07-23 Surgery Oppermann, 1.2.840.1 [id number] Methodi 10:25:00 11:50:00 Dominique E. 94799.1.1 352 s t 3.430.2.7 Hospit a .3.032266 l .8 2020-07-20 2020-07-20 [facility], 1.2.840.1 [id number] Methodi 07:28:16 08:28:16 ion Dominique Choudhury 54134.1.1 719 s t Testing 3.430.2.7 Hospit a .3.446015 l .8 2020-07-19 2020-07-19 Travel 1.2.840.1 1.2.040.788 8658 [id number] Methodi 00:00:00 00:00:[address] 3.430.2.7 0.2.7.3.698 Ho spita .3.603412 084.8 l .8 2020-07-19 2020-07-19 Prep for Mccain, 1.2.840.1 [id number] Methodi 00:00:00 00:00:00 Surgery Abbi P [address]473.1.[address] 3.430.2.7 Hospit a .3.485148 l .8 2020-07-17 2020-07-17 [facility], 1.2.840.1 [id number] Methodi 14:08:25 14:58:03 Visit Dominique Choudhury 06177.1.1 045 s t 3.430.2.7 Hospit a .3.401579 l .8 2020-07-17 2020-07-17 Travel 1.2.840.1 1.2.907.399 3432 [id number] Methodi 00:00:00 00:00:[address] 3.430.2.7 0.2.7.3.698 Ho spita .3.004503 084.8 l .8 2020-06-14 2020-07-13 Outpatient [facility], [facility] [address] [facility] 07:03:00 23:59:00 CHICO 2020-07-10 2020-07-12 Emergency Constantin Aquino 1.2.840.1 [id number] Methodi 12:50:00 16:36:00 Jeremy Cool 77329.1.[address] 3.430.2.7 Hospit a .3.409829 l .8 2020-07-11 2020-07-11 Anesthesia Serge Tilley 1.2.8 40.1 [id number] Methodi 17:55:00 19:35:00 Event Ollie Rolle 79749.1.[address] 3.430.2.7 Hospit a .3.509096 l .8 2020-07-11 2020-07-11 Surgery Leslie, 1.2.840.1 [id number] Methodi 15:30:00 16:55:00 Dominique Choudhury 15169.1.1 578 s t 3.430.2.7 Hospit a .3.709865 l .8 2020-07-10 2020-07-10 Travel 1.2.840.1 1.2.400.708 6706 [id number] Methodi 00:00:00 00:00:[address] 3.430.2.7 0.2.7.3.698 Ho spita .3.265425 084.8 l .8 2020-06-092020-06-09 Outpatient MAIKOL, [facility] 7508 [facility] 17:00:00 23:59:00 KATEY 2020-06-09 2020-06-09 EXT MHH OP Lassiter, EXT MSRDP 1.2.840.114 [id number] [place] 00:00:00 00:00:00 Katey LOCATION 350.1.13.58 Health 9.2.7.2.686 [id number] 0 2020-06-09 2020-06-09 EXT MHH OP Lassiter, EXT MSRDP 1.2.840.114 [id number] [place] 00:00:00 00:00:00 Katey LOCATION 350.1.13.58 Health 9.2.7.2.686 [id number] 0 2020 2020-06-06 Outpatient HASBUWolf, [facility] [address] [facility] 11:00:00 23:59:00 CHICO 2020-04-04 2020-05-03 Outpatient KEVO [facility] CAR [facility] 06:56:00 23:59:00 FILIPPO VIVEROS 2020-04-23 2020-04-23 Appointmen SILVINO COSME, [facility] Urology - [id number] [place] 08:15:00 08:15:00 t; Bibi COSME i, M.D. [facility] 2020-03-08 2020-04-06 Outpatient DE [facility] [address] [facility] 11:00:00 23:59:00 ELENA RIVERA 2020-04-04 2020-04-04 Appointmen [facility]GANTRANSP [facility] [id number] [place] 07:00:00 07:00:00 t; BAYRON, OP Physi ci ORGANTRANS ans PLANT, OP 2020-03-08 2020-03-08 EXT MHH OP de EXT MSRDP 1.2.840.114 1 [id number] [place] 00:00:00 00:00:00 Corwinwa, LOCATION 350.1.13.58 Health Elena 9.2.7.2.686 [id number] 0 2020-03-08 2020-03-08 EXT MHH OP de EXT MSRDP 1.2.840.114 1 [id number] [place] 00:00:00 00:00:00 Shabnam, [facility] 350.1.13.58 On License Of [facility] 9.2.7.2.686 [id number] 0 2019-10-24 2019-10-24 Appointmen SILVINO COSME, [facility] Urology - 67 [id number] [place] 09:45:00 09:45:00 t; Bibi COSME i, M.D. [facility] 2019-05-09 2019-05-09 Outpatient LASSITER[facility] 0073 [facility] 15:00:00 15:00:00 KATEY 2019-04-01 2019-04-01 Outpatient [facility] CAR 7506 [facility] 06:40:00 06:40:00 2019-03-16 2019-03-16 Appointmen ORGANTRANSP [facility] UTP [id number] [place] 08:30:00 08:30:00 t; EVANS Physi ci ORGANTRANS ans PLANT, OP 2019-03-16 2019-03-16 Outpatient [facility] CAR 9605 [facility] 06:50:00 06:50:00 2018-08-20 2018-08-20 Outpatient [facility] CAR 9603 [facility] 08:05:00 08:05:00 2018-07-07 2018-07-07 Outpatient [facility] PUL 9601 [facility] 09:33:00 09:33:00 2018-06-29 2018-06-29 Appointmen STEVEN [facility] UTP [id number] [place] 14:00:00 14:00:00 t; Timothy Tejeda i, an s [facility], M.D. KRISTOFER, M.D. 2018-06-23 2018-06-23 Outpatient M[facility]H [facility] [id number] [facility] 10:27:00 10:27:00 2018-06-23 2018-06-23 Appointmen KODY DEJESUS UTP [id number] [place] 10:00:00 10:00:00 t; ANA DEJESUS Phys ici MODUPE, M.D. ans M.D. 2018-06-08 2018-06-08 Appointmen STEVEN [facility] [id number] [place] 10:00:00 10:00:00 t; W, Physic i christel SHIPMAN M.D. KRISTOFER, M.D. Results Test Description Test Time Test Comments Results Result Comments Source POCT urinalysis w/o scope 2021-10-28 22:11:00 Test Item Value Reference Range Interpretation Comme nts Color, UA (test code = Yello w 5878316) Clarity, UA (test code = Clear 3357143) Glucose, UA (test code = 100 mg/dL Negative A 2535145) Bilirubin, UA (test code = Negative Negative 8213713) Ketones, UA (test code = Neg ative 2901196) Spec Grav, UA (test code = 1.000-4.255 6781594) Blood, UA (test code = Trace 0956417) pH, UA (test code = 5.0-8.5 0383369) Protein, UA (test code = 30(+1) mg/dL Negative, Trace, A 9424809) 200(+2)mg/dL, 15/mg/dL Urobilinogen, UA (test code See_Comment [Automated message] = 2433638) The system [employer] generated this result transmitted ref erence range: 0.2. The reference range was not used to interpr et this result as normal/abnormal . Leukocytes, UA (test code = Trace Negative, Trace 5225264) Nitrite, UA (test code = Negative Negative, Trace 1171014) Appearance, Fluid (test Clear code = 9335-1) Lab Interpretation (test Abnormal code = 31837-0) [facility] [id number] 13:05:21 Test Item Value Reference Range Interpretation Comments Case number (test [id number] code = 6327030) Surgical pathology See link below for PDF report (test code = Lab Report 2255) Result status (test This is Supplemental code = 0513560) Report for [id number] [facility] [id number] 14:19:00 Test Item Value Reference Range Interpretation Comments Anaerobic No anaerobic Specimen culture isolate organisms InformationS pecimen (test code = isolated. Source: Periton eal 05527-3) fluidSpecimen S ite: Stomach [facility] HospitalAerobic [id number] 18:24:00 Test Item Value Reference Range Interpretation Comments Aerobic culture No growth Specimen isolate (test after 3 days. InformationSp ecimen code = 76138-4) Source: Cris toneal fluidSpecimen S ite: Stomach [facility] HospitalECG 12 [id number] 15:13:45 Test Item Value Reference Range Interpretation Comments Ventricular rate (test code = 253) Atrial rate (test code = 255) AR interval (test code = 266) QRSD interval (test code = 260) QT interval (test code = 264) QTC interval (test code = 265) P axis 1 (test code = 267) QRS axis 1 (test code = 268) T wave axis (test code = 270) EKG impression (test Sinus rhythm with 1st code = 273) degree AV block with premature atrial complexes-Nonspecific ST and T wave abnormality-Abnormal ECG-In automated comparison with ECG of 19-SEP-2020 12:57,-premature atrial complexes are now present-Criteria for Anteroseptal infarct are no longer present-ST no longer depressed in Inferior leads-T wave inversion no longer evident in Inferior leads-T wave inversion now evident in Lateral leads- [facility] [id number] 12:13:00 Test Item Value Reference Range Interpretation Comments Gram stain No WBC's or Specimen isolate (test organisms seen. Information Specimen code = 1469) Source: Periton eal fluidSpecimen S ite: Stomach [facility] [id number] 02:38:00 Test Item Value Reference Range Interpretation Comments Urine culture (test SEE COMMENT Bacteriu kayden screen code = 0401546) negative. [facility] 12 [id number] 03:58:06 Test Item Value Reference Range Interpretation Comments Ventricular rate (test code = 253) Atrial rate (test code = 255) AR interval (test code = 266) QRSD interval (test code = 260) QT interval (test code = 264) QTC interval (test code = 265) P axis 1 (test code = 267) QRS axis 1 (test code = 268) T wave axis (test code = 270) EKG impression (test code = 273) [facility] Lumbar Spine Wo [id number] 18:57:51EXAMINATION: CT LUMBAR SPINE WO CONTRAST COMPARISON: None CLINICAL HISTORY: seveer low back pain COMMENTS: Axial CT scan slices of the lumbar spine were obtained without contrast material. Sagittal andcoronal reconstructions were obtained. CT imaging was performed with iterative reconstruction technique and/or automated exposure control to reduce radiation dose. FINDINGS: The abdominal aortic aneurysm and vascular stent in [...] disc protrusion towards the left. There is asuperior endplate defect at L4 which appears stable compared to the previous CT scan. L2-3 shows mild disc bulge mild facet disease. The inferior endplate defect at posterior L2 was present on the previous study also. L1-2 shows minimal facet disease. No definite acute fracture is identified. No signif icant subluxation. There is mild curvature of the lumbar spine convex towards the right. IMPRESSION:Degenerative change of mild degree. The details can be further evaluated with MRI. The infiltrative change in the posterior left retroperitoneum is of unknown cause. Recommend clinical correlation including with postcontrast CT scan of the abdomen and pelvis. The findings were discussed with Dr. Oneill who verbalized understanding with read back September 19, 2020 at 1357 hours. [id number] Interface, Radiology Results Incoming - 09/19/2020 2:00 PM CDT EXAMINATION: CT LUMBAR SPINE WO CONTRASTCOMPARISON: NoneCLINICAL HISTORY: seveer low back painCOMMENTS: Axial CT scan slices of the lumbar spine were obtained without contrast material. Sagittal and coronal reconstructions were obtained.CT imaging was performed with iterative reconstruction technique and/or automated exposure control to reduce radiation dose.FINDINGS: The abdominal aorticaneurysm and vascular stent in place are not significantly change compared to CT scan of the abdomeny 2020. There is new infiltrative change in [...] L2 was present on the previous study also.L1-2 shows minimal facet disease.No definite acute fracture is identified. No significant subluxation. There is mild curvature of the lumbar spine convex towards the right.IMPRESSION:Degenerative change of mild degree. The details can be further evaluated with MRI.The infiltrative change in the posterior left retroperitoneum is of unknown cause. Recommend clinical correlation including with postcontrast CT scan of the abdomen and pelvis.The findings were discussed with Dr. Anthony verbalized understanding with read back September 19, 2020 at 1357 hours.[id number]_[id number] HospitalXR Chest 1 [id number] 18:15:14EXAMINATION: XR CHEST 1 PORTABLE CLINICAL HISTORY: 65 years Male CP COMPARISON: 07/10/2020 radiograph IMPRESSION: The lungs are clear and well-expanded with no focal consolidation, pneumothorax or pleural effusion. The cardiomediastinal silhouette is within normal limits. There is no acute osseous injury. The visualized upper abdomen is within normal limits. [id number] Interface, Radiology Results Incoming - 09/19/2020 1:18 PM CDT EXAMINATION: XR CHEST 1 PORTABLECLINICAL HISTORY: 65 years Male CPCOMPARISON: 07/10/2020 radiographIMPRESSION:The lungs are clear and well-expanded with no focal consolidation, pneumothorax or pleural effusion.The cardiomediastinal silhouette is within normal limits.There is no acute osseous injury.The visualized upper abdomen is within normal limits. [id number] ED Preliminary Interpretation - Not an [id number] 17:27:13Maryan Oneill MD 09/19/2020 6:41 [facility] ED Preliminary Interpretation - Not an OrderPerformed by: Maryan Oneill MDAuthorized by: Maryan Oneill MD ECG reviewed by ED Physician in the absence of a take down sorter: yes Interpretation: Interpretation: non- specific Rate: ECG rate: 71 ECG rate assessment: normal Rhythm: Rhythm: sinus rhythm Ectopy: Ectopy: none QRS: QRS axis: Normal QRS intervals: NormalConduction: Conduction: abnormal Abnormal conduction: 1st degree ST segments: ST segments:NormalT waves: T waves: non-specificCT Abdomen Pelvis Wo [id number] 02:14:01EXAMINATION: CT ABDOMEN PELVIS WO CONTRAST CLINICAL HISTORY: 65 yearsMale Abdominal pain acute nonlocalized TECHNIQUE: Multiple axial images of the abdomen and pelvis were obtained without the administration of iodinated contrast. Sagittal and coronal computerized reformatted images were also obtained. CT imaging was performed with iterative reconstruction techniques and/or automated exposure controlto reduce radiation dose. COMPARISON: None. IMPRESSION: LUNG BASES:A 15 mm fatty mass in the right lower pulmonary lobe is compatible with hamartoma. Trace bilateral pleural effusions are seen. ABDOMEN: Liver: Several hypodensities in liver are probably cysts [...] Mild ascites is seen. There is some left- sided subcutaneous edema. PELVIS:There is mild pelvic ascites with a percutaneous dialysis catheter identified. Ortega catheter is seen in the bladder. MUSCULOSKELETAL: No suspicious osseous lesions. 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 2.Right pulmonary hamartoma. 3.Aortobiiliac stent. [id number]_PS07Hm Interface, Radiology Results Incoming - 07/24/2020 9:17 PM CDTFormatting of this note might be differentfrom the original.EXAMINATION: CT ABDOMEN PELVIS WO CONTRASTCLINICAL HISTORY: 65 yearsMale Abdominalpain acute nonlocalizedTECHNIQUE: Multiple axial images of the abdomen and pelvis were obtained without the administration of iodinated contrast. Sagittal and coronal computerized reformatted images were also obtained. CT imaging was performed with iterative reconstruction techniques and/or automated exposure control to reduce radiation dose. COMPARISON: None.IMPRESSION:LUNG BASES:A 15 mm fatty mass in the [...] adrenal glands are unremarkable.Kidneys: Innumerable bilateral renal hypodensitieslikely represent cysts are seen. Some of these are hyperdense and are probably hemorrhagic cyst.Vascular: There is an aortobiiliac stent.Nodes: No enlarged retroperitoneal or mesenteric lymphadenopathy. Tiny retroperitoneal lymph nodes are seen.Bowel: No bowel obstruction or inflammatory changes.Ascite s/fluid collections: Mild ascites is seen. There is some left-sided subcutaneous edema.PELVIS:There is mild pelvic ascites with a percutaneous dialysis catheter identified. Ortega catheter is seen in the bladder.MUSCULOSKELETAL: No suspicious osseous lesions. SUMMARY:1.Findings of autosomal dominant polycystic kidney disease with mild ascites.2.Right pulmonary hamartoma.3.Aortobiiliac stent.[id number]_PS07[facility] [id number] 06:53:48 Test Item Value Reference Range Interpretation Comments Urine culture (test code = SEE COMMENT [id number]) [facility]2021-05-24 16:20:31Isabelle Wetzel MD 07/23/2020 11:21 AMAirway Date/Time: 07/23/2020 11:20 AM Location: OR Performedby: anesthesiologistAuthorized by: Isabelle Wetzel MD Urgency: ElectiveDifficult Airway: No Preoxygenated with 100% O2: Yes C-spine Precautions Maintained Throughout: Yes Mask Ventilation: Easy maskFinal Airway Type: Endotracheal airwayFinal Endotracheal Airway: ETTTechnique Used: Direct laryngoscopyBlade Type: MillerLaryngoscope Blade/Videolaryngoscope Blade Size: 3ETT Size (mm): 8.0Measured from: LipsETT to Lips (cm): 24Placement Verified by: CO2 detection, direct visualization and equal breath sounds Laryngoscopic view: Grade I - full view of glottisRapid Sequence Induction (RSI): No Modified RSI: No Number of Attempts at Approach: [id number] 01:07:00Megan Felix CRNA 07/11/2020 6:28 PMAirway Date/Time: 07/11/2020 8:07 PM Location: OR Performed by: ALYSSA/AA and anesthesiologistAnesthesiologist: Serge Tilley, YAJAIRAesident/NUCLEAR CONTROL ROOM OPERATOR/AA: Megan Felix CRNAAuthorized by: Megan Felix CRNA Urgency: ElectiveDifficult Airway: No Preoxygenated with 100% O2: Yes Mask Ventilation: Easy maskFinal Airway Type: Endotracheal airwayFinal Endotracheal Airway: ETTCuffed: Yes Technique Used: Direct laryngoscopyDevices/Methods Used in Placement: Intubating styletInsertion Site: OralBlade Type: MillerLaryngoscope Blade/Videolaryngoscope Blade Size: 2ETT Size (mm): 7.0Cuff at minimum occlusion pressure: Yes Measured from: LipsETT to Lips (cm): 23Placement Verified by: CO2 detection, direct visualization and equal breath sounds Laryngoscopic view: Grade I - full view of glottisRapid Sequence Induction (RSI): No Modified RSI: No Number of Attempts at Approach: 1XR Abdomen 1 [id number] 01:32:09EXAMINATION: XR ABDOMEN 1 VW CLINICAL HISTORY: Abdominal pain and PD Cath COMPARISON: None. FINDINGS: There is an aortic stent graft. Opaque catheter overlies the lower abdomen with the coiled portion overlying the left iliac wing. There is increase in the amount of gas and feces in the colon. IMPRESSION:As above [id number] Interface, Radiology Results Incoming - 07/10/2020 8:35 PM CDT EXAMINATION: XR ABDOMEN 1 VWCLINICAL HISTORY: Abdominal pain and PD CathCOMPARISON: None.FINDINGS:There is an aortic stent graft.Opaque catheter overlies the lower abdomen with the coiled portion overlying the left iliac wing.There is increase in the amount of gas and feces in the colon.IMPRESSION:As aboveR[facility]ERTON [id number] Hospital
[2021-12-25] MEDS ORDERED: NA CHLORIDE 0.9% 250 ML ONE ×3 (15:45→19:04)
[2021-12-25 15:58] LABS: Absolute Lymphocytes (CBC) 1.9 K/uL (0.7-4.9); Hematocrit 40.7 % (39.6-49.0); Lymphocytes % 17.5 % (15.3-44.8); MCV 94.5 fL (80-100); RBC Red Blood Cell Count 4.31 M/uL (4.33-5.43)
[2021-12-25] MEDS ORDERED: FAMOTIDINE 20 MG/2 ML VIAL IV ONE (16:12)
[2021-12-25 16:53] LABS: Potassium 3.3 mmol/L (3.5-5.1)
--- NOTE | 2021-12-25 18:02 | RAD REPORT ---
EXAM DESCRIPTION: CT - Abdomen Pelvis Wo Contrast - 12/25/2021 5:47 pm CLINICAL HISTORY: Flank pain COMPARISON: Abdomen Pelvis Wo Contrast dated 09/30/2020 TECHNIQUE: Axial [address] imaging of the abdomen and pelvis was performed without IV contrast. No IV contrast was given because of allergy, abnormal renal function, patient refusal or physician re quest. No oral contrast administered. All CT scans are performed using dose optimization technique as appropriate and may include automated exposure control or mA/KV adjustment according to patient size. FINDINGS: A 16 millimeter round nodule in the posteromedial right lung base has not change from comp arison. Liver assessment is limited somewhat by the patient's forearms overlying the abdomen. Liver has a sli ghtly nodular contour similar to comparison. There are numerous variably sized cysts in the liver par enchyma. No clear change to the liver from the 2020 study. No pancreatic or peripancreatic acute finding. No splenic abnormality. Gallbladder is mostly contract ed. No biliary tree dilatation. Innumerable variably sized renal cysts are present. There is variable attenuation within these cysts likely due to high protein content or hemorrhagic debris. Solid masses can be masked on a noncontrast study. Kidneys are not clearly different from comparison. No significant adrenal finding. Isodense renal masses and pyelonephritis cannot be excluded in the absence of IV contrast. Urinary bladder is mostly contracted. Peritoneal dialysis catheter seen curled in the lower pelvis. No gastric dilatation gastric wall thickening. No dilated small bowel loops. Patient has prominent co lonic diverticulosis but no diverticulitis. An acute colon mass is not identified. No appendicitis fi ndings. No evidence perforation related to the colonoscopy. There is no free air, free fluid or inflammatory stranding. No hernia, mass or bulky lymphadenopathy. Disc and bone degenerative changes are present. Aortoiliac endovascular stent in place similar to com parison. IMPRESSION: Patient has prominent diverticulosis but no diverticulitis or acute colon finding. No perforation or other finding as a possible complication from colonoscopy. Polycystic kidney disease with no clear change from prior imaging. Aortic endograft similar to comparison. No periaortic fluid or stranding. Full assessment is limited is the absence of IV contrast.
[2021-12-25 18:39] LABS: Protime INR 1.05
--- NOTE | 2021-12-25 18:54 | RAD REPORT ---
EXAM DESCRIPTION: RAD - Chest Single View - 12/25/2021 5:59 pm CLINICAL HISTORY: CHEST PAIN COMPARISON: Portable 09/30/2020 TECHNIQUE: AP portable chest image was obtained 12/25/2021 5:59 pm . FINDINGS: Lungs are clear. Interstitial pattern matches comparison. Heart and vasculature are normal . No measurable pleural effusion and no pneumothorax. No acute bony abnormality seen. No acute aortic findings suspected. IMPRESSION: No acute cardiopulmonary process. No significant change from comparison study.
[2021-12-25 19:06] LABS: Bilirubin Direct 0.2 mg/dL (0-0.2); Bilirubin Total 0.5 mg/dL (0.2-1.0); Magnesium 2.1 mg/dL (1.8-2.4); Protein, Total 6.6 g/dL (6.4-8.2)
[2021-12-25 19:23] LABS: Troponin High Sensitivity 104.4 pg/mL (<58.9)
[2021-12-25] MEDS ORDERED: FENTANYL CITR 100 MCG/2 ML ONE (19:42)
--- NOTE | 2021-12-25 19:48 | ER ---
Nurse's Notes [facility] Name: Stan Jimenes Age: 66 yrs Sex: Male : 1955 Arrival Date: 12/25/2021 Time: 15:18 Bed 26 Private MD: Diagnosis: Dehydration;Vomiting;Diarrhea, unspecified;Chest pain, unspecified Presentation: 12/25 15:19 Chief complaint: EMS states: low BP at doctor's office (systolic in 70s), weakness, eh3 dizziness, nausea, SOB when walking since colonoscopy yesterday morning. Coronavirus screen: Vaccine status: Patient reports receiving the 2nd dose of the covid vaccine. Ebola Screen: No symptoms or risks identified at this time. No acute neurological deficit is noted. Initial Sepsis Screen: Does the patient meet any 2 criteria? Systolic BP < 90 mmHg. Mean Arterial Pressure (MAP) < 65. Risk Assessment: Do you want to hurt yourself or someone else? Patient reports no desire to harm self or others. Onset of symptoms was December 25, 2021. 15:19 Method Of Arrival: EMS: [place] [id number] 15:19 Acuity: CHAVA 3 eh3 16:01 Initial Sepsis Screen: Does the patient have a suspected source of infection? No. eh3 Patient's initial sepsis screen is negative. Triage Assessment: 15:18 The onset of the patients symptoms was December 25, 2021 at 15:39. General: Appears in eh3 no apparent distress. uncomfortable, Behavior is calm, cooperative, appropriate for age. Pain: Complains of pain in abdomen. Neuro: Reports dizziness, weakness. 15:18 Pain: Complains of pain in epigastric area Pain radiates to abdomen Pain currently is 8 eh3 out of 10 on a pain scale. Quality of pain is described as burning, Pain began 1 day ago. Is continuous, Alleviated by nothing. Cardiovascular: Reports lightheadedness, nausea, shortness of breath, Capillary refill < 3 seconds Patient's skin is warm and dry. Respiratory: Airway is patent Respiratory effort is even, labored, Respiratory pattern is regular, symmetrical, Breath sounds are clear bilaterally. GI: Abdomen is round Reports indigestion, nausea. : No signs and/or symptoms were reported regarding the genitourinary system. Derm: No deficits noted. No signs and/or symptoms reported regarding the dermatologic system. Musculoskeletal: Circulation, motion, and sensation intact. Range of motion: intact in all extremities. Historical: - Home Meds: 15:38 allopurinol 300 mg Oral tab 1 tab once daily for Gout [Active]; amlodipine 10 mg tab 1 eh3 tab once daily [Active]; aspirin 81 mg Oral TbEC 1 tab once daily [Active]; atorvastatin 10 mg Oral tab 1 tab once daily [Active]; calcitriol 0.25 mcg Oral cap 1 cap [Active]; carvedilol 3.125 mg Oral tab 1 tab 2 times per day [Active]; magnesium oxide 400 mg Oral tab 400 mg daily [Active]; metoprolol tartrate 25 mg Oral tab 1 tab 2 times per day [Active]; ranitidine HCl 150 mg Oral tab 1 tab once daily [Active]; tamsulosin 0.4 mg Oral cp24 1 cap once daily [Active]; - PMHx: 15:38 "Dialysis for the stomach, not the blood"; AAA; Aneurysm; COPD; Diabetes - NIDDM; Gout; eh3 High Cholesterol; Hypertension; POLYCYSTIC KIDNEY DISEASE; - Immunization history:: Adult Immunizations up to date. - Social history:: Smoking status: unknown. Screenin:20 Abuse screen: Denies threats or abuse. Denies injuries from another. Nutritional eh3 screening: No deficits noted. Tuberculosis screening: No symptoms or risk factors identified. Fall Risk IV access (20 points). Gait- Weak (10 pts.). Total Godinez Fall Scale indicates Low Risk Score (25-44 pts). Fall prevention measures have been instituted. Side Rails Up X 2 Placed close to Nursing Station Frequent Obs/Assesments occuring Family Present and informed to notify staff if they need to leave bedside As available Patient and Family Educated on Fall Prevention Program and strategies. Assessment: 15:20 Reassessment: No changes from previously documented assessment. See triage assessment. eh3 16:20 Reassessment: Patient and/or family updated on plan of care and expected duration. Pain eh3 level reassessed. Patient is alert, oriented x 3, equal unlabored respirations, skin warm/dry/pink. Pain: Complains of pain in left low back and right low back Pain currently is 8 out of 10 on a pain scale. 17:20 Reassessment: Patient and/or family updated on plan of care and expected duration. Pain eh3 level reassessed. Patient is alert, oriented x 3, equal unlabored respirations, skin warm/dry/pink. 18:20 Reassessment: Patient and/or family updated on plan of care and expected duration. Pain eh3 level reassessed. Patient is alert, oriented x 3, equal unlabored respirations, skin warm/dry/pink. 19:20 Reassessment: Patient and/or family updated on plan of care and expected duration. Pain eh3 level reassessed. Patient is alert, oriented x 3, equal unlabored respirations, skin warm/dry/pink. 19:42 Neuro: Turner Agitation-Sedation Scale (RASS): 0 - Alert and Calm. eh3 20:20 Reassessment: Patient and/or family updated on plan of care and expected duration. Pain eh3 level reassessed. Patient is alert, oriented x 3, equal unlabored respirations, skin warm/dry/pink. 20:40 Neuro: Turner Agitation-Sedation Scale (RASS): 0 - Alert and Calm. eh3 21:20 Reassessment: Patient and/or family updated on plan of care and expected duration. Pain eh3 level reassessed. Patient is alert, oriented x 3, equal unlabored respirations, skin warm/dry/pink. 21:40 Neuro: Turner Agitation-Sedation Scale (RASS): 0 - Alert and Calm. eh3 22:20 Reassessment: Patient and/or family updated on plan of care and expected duration. Pain eh3 level reassessed. Patient is alert, oriented x 3, equal unlabored respirations, skin warm/dry/pink. Vital Signs: 15:18 BP 82 / 53; Pulse 84; Resp 17; Pulse Ox 99% on R/A; eh3 15:19 BP 86 / 52; Pulse 81; Resp 18; Pulse Ox 99% on R/A; Weight 106.59 kg; Height 6 ft. 2 eh3 in. (187.96 cm); 16:20 BP 108 / 67; Pulse 70; Resp 20; Pulse Ox 100% on R/A; eh3 17:15 BP 100 / 60; Pulse 76; Resp 13; Pulse Ox 97% on R/A; eh3 17:30 BP 107 / 63; Pulse 77; Resp 19; Pulse Ox 90% on R/A; eh3 18:15 BP 108 / 66; Pulse 77; Resp 12; Pulse Ox 98% on R/A; eh3 18:30 BP 92 / 61; Pulse 79; Resp 14; Pulse Ox 97% on R/A; eh3 18:40 BP 101 / 60; Pulse 77; Resp 20; Pulse Ox 94% on R/A; eh3 19:00 BP 112 / 61; Pulse 78; Resp 15; Pulse Ox 95% on R/A; eh3 19:30 BP 111 / 63; Pulse 76; Resp 13; Pulse Ox 94% on R/A; eh3 20:30 BP 100 / 61; Pulse 75; Resp 12; Pulse Ox 95% on R/A; eh3 21:30 BP 116 / 53; Pulse 84; Resp 21; Pulse Ox 98% on R/A; eh3 22:30 BP 114 / 60; Pulse 78; Resp 20; Pulse Ox 96% on R/A; eh3 15:19 Body Mass Index 30.17 (106.59 kg, 187.96 cm) eh3 Vitals: 15:18 Cardiac Rhythm Assessment Sinus rhythm. eh3 16:20 Cardiac Rhythm Assessment Sinus rhythm. eh3 ED Course: 14:30 Arm band placed on right wrist. eh3 15:18 Patient arrived in ED. eh3 15:20 Patient has correct armband on for positive identification. Placed in gown. Bed in low eh3 position. Call light in reach. Side rails up X2. Adult w/ patient. Client placed on continuous cardiac and pulse oximetry monitoring. NIBP monitoring applied. Door closed. Noise minimized. Warm blanket given. Pillow given. 15:20 Maintain EMS IV. Dressing intact. Good blood return noted. Site clean \\T\\ dry. Gauge \\T\\ eh 3 site: 20g RAC. 15:23 Gerry Felix NP is PHCP. pm1 15:23 Jonatan Alarcon DO is Attending Physician. pm1 15:25 Triage completed. eh3 15:37 Ernestina Qiu, MONA is Primary Nurse. eh3 15:48 BMP Sent. eh3 15:48 CBC with Diff Sent. eh3 17:49 CT Abd/Pelvis - Without Contrast In Process Unspecified. EDMS 18:01 XRAY Chest (1 view) In Process Unspecified. EDMS 19:47 Hussein Lund MD is Hospitalizing Provider. pm1 22:30 No provider procedures requiring assistance completed. Patient admitted, IV remains in [address] Administered Medications: 15:48 Drug: NS 0.9% 250 ml Route: IV; Rate: calculated rate; Site: right antecubital; 3 16:10 Follow up: IV Status: Completed infusion; IV Intake: 250ml 3 16:12 Drug: Pepcid (famotidine) 20 mg Route: IVP; Site: right antecubital; 3 19:14 Follow up: Response: No adverse reaction 3 16:12 Drug: NS 0.9% 250 ml Route: IV; Rate: bolus; Site: right antecubital; 3 19:48 Follow up: IV Status: Completed infusion; IV Intake: 250ml 3 19:02 Drug: NS 0.9% 250 ml Route: IV; Rate: bolus; Site: right antecubital; 3 19:47 Follow up: IV Status: Completed infusion; IV Intake: 250ml 3 19:42 Drug: fentaNYL (PF) 25 mcg Route: IVP; Site: right antecubital; 3 21:25 Follow up: Response: Pain is decreased [facility] Medication: 22:30 VIS not applicable for this client. 3 Intake: 16:10 IV: 250ml; Total: 250ml. eh3 19:47 IV: 250ml; Total: 500ml. eh3 19:48 IV: 250ml; Total: 750ml. 3 Outcome: 19:48 Decision to Hospitalize by Provider. pm1 22:30 Admitted to Tele accompanied by tech, family with patient, via wheelchair, room 403, 3 with chart, Report called to MONA Payne 22:30 Condition: stable 22:30 Instructed on the need for admit. 23:30 Patient left the ED. 3 Signatures: Dispatcher [employer] EDMS Gerry Felix NP SHADE MAK[employer] pm1 Ernestina Qiu RN RN 3 Corrections: (The following items were deleted from the chart) 16:04 14:30 The onset of the patients symptoms was December 25, 2021 at 15:39 3 3 16:04 14:30 General: Appears in no apparent distress. uncomfortable, Behavior is calm, eh3 cooperative, appropriate for age, 3 16:04 14:30 Pain: Complains of pain in abdomen eh3 eh3 16:04 14:30 Neuro: Reports dizziness, weakness [facility] 16:07 15:20 Door closed. Noise minimized. Warm blanket given. Pillow given. Head of bed eh3 lowered. [facility] 16:21 15:18 BP 82 / 53; Pulse 84bpm; Resp 17bpm; Pulse Ox 99% RA; 3 3 18:44 17:20 BP 100 / 60; Pulse 76bpm; Resp 13bpm; Pulse Ox 97% RA; 3 3 21:23 17:20 Reassessment: Patient and/or family updated on plan of care and expected eh3 duration. Pain level reassessed. Patient is alert/active/playful, equal unlabored respirations, skin warm/dry/pink. [facility] 21:25 21:20 Reassessment: Patient and/or family updated on plan of care and expected eh3 duration. Pain level reassessed. Patient is alert, oriented x 3, equal unlabored respirations, skin warm/dry/pink. [facility]
--- NOTE | 2021-12-25 19:49 | EDPHYS ---
Physician Documentation [facility] Name: Stan Jimenes Age: 66 yrs Sex: Male : 1955 Arrival Date: 12/25/2021 Time: 15:18 Bed 26 Private MD: ED Physician Jonatan Alarcon HPI: 12/25 15:43 This 66 yrs old Male presents to ER via EMS with complaints of Weakness. pm1 15:43 The patient presents to the emergency department with weakness of the entire body, pm1 generalized weakness. Onset: The symptoms/episode began/occurred last night. Context: occurred at home. Associated signs and symptoms: Pertinent positives: vomiting and diarrhea. Patient reports diarrhea similar to the preparation that he did for his colonoscopy yesterday. Severity of symptoms: in the emergency department the symptoms are unchanged. Historical: - Home Meds: 15:38 allopurinol 300 mg Oral tab 1 tab once daily for Gout [Active]; amlodipine 10 mg tab 1 eh3 tab once daily [Active]; aspirin 81 mg Oral TbEC 1 tab once daily [Active]; atorvastatin 10 mg Oral tab 1 tab once daily [Active]; calcitriol 0.25 mcg Oral cap 1 cap [Active]; carvedilol 3.125 mg Oral tab 1 tab 2 times per day [Active]; magnesium oxide 400 mg Oral tab 400 mg daily [Active]; metoprolol tartrate 25 mg Oral tab 1 tab 2 times per day [Active]; ranitidine HCl 150 mg Oral tab 1 tab once daily [Active]; tamsulosin 0.4 mg Oral cp24 1 cap once daily [Active]; - PMHx: 15:38 "Dialysis for the stomach, not the blood"; AAA; Aneurysm; COPD; Diabetes - NIDDM; Gout; eh3 High Cholesterol; Hypertension; POLYCYSTIC KIDNEY DISEASE; - Immunization history:: Adult Immunizations up to date. - Social history:: Smoking status: unknown. ROS: 15:43 Constitutional: Negative for fever, chills, and weight loss, Cardiovascular: Negative pm1 for chest pain, palpitations, and edema, Respiratory: Negative for shortness of breath, cough, wheezing, and pleuritic chest pain. 15:43 Abdomen/GI: Positive for nausea, vomiting, and diarrhea, Negative for abdominal pain. 15:43 Back: Positive for low back pain. 15:43 Neuro: Positive for weakness, generalized. 15:43 All other systems are negative. 17:07 Cardiovascular: Positive for chest pain. pm1 17:07 Respiratory: Negative for shortness of breath. Exam: 15:43 Constitutional: This is a well developed, well nourished patient who is awake, alert, pm1 and in no acute distress. Head/Face: Normocephalic, atraumatic. 15:43 Skin: Warm, dry with normal turgor. Normal color with no rashes, no lesions, and no evidence of cellulitis. MS/ Extremity: Pulses equal, no cyanosis. Neurovascular intact. Full, normal range of motion. 15:43 Cardiovascular: Exam negative for acute changes, Rate: normal, Rhythm: regular, Pulses: no pulse deficits are appreciated, Heart sounds: normal, normal S1and S2. 15:43 Respiratory: Exam negative for acute changes, respiratory distress, shortness of breath, Breath sounds: are clear throughout. 15:43 Abdomen/GI: Inspection: obese Palpation: abdomen is soft and non-tender, in all quadrants. 15:43 Neuro: Exam negative for acute changes, Orientation: is normal, Mentation: is normal, Motor: is normal, moves all fours. Vital Signs: 15:18 BP 82 / 53; Pulse 84; Resp 17; Pulse Ox 99% on R/A; eh3 15:19 BP 86 / 52; Pulse 81; Resp 18; Pulse Ox 99% on R/A; Weight 106.59 kg; Height 6 ft. 2 eh3 in. (187.96 cm); 16:20 BP 108 / 67; Pulse 70; Resp 20; Pulse Ox 100% on R/A; eh3 17:15 BP 100 / 60; Pulse 76; Resp 13; Pulse Ox 97% on R/A; eh3 17:30 BP 107 / 63; Pulse 77; Resp 19; Pulse Ox 90% on R/A; eh3 18:15 BP 108 / 66; Pulse 77; Resp 12; Pulse Ox 98% on R/A; eh3 18:30 BP 92 / 61; Pulse 79; Resp 14; Pulse Ox 97% on R/A; eh3 18:40 BP 101 / 60; Pulse 77; Resp 20; Pulse Ox 94% on R/A; eh3 19:00 BP 112 / 61; Pulse 78; Resp 15; Pulse Ox 95% on R/A; 3 19:30 BP 111 / 63; Pulse 76; Resp 13; Pulse Ox 94% on R/A; 3 20:30 BP 100 / 61; Pulse 75; Resp 12; Pulse Ox 95% on R/A; 3 21:30 BP 116 / 53; Pulse 84; Resp 21; Pulse Ox 98% on R/A; 3 22:30 BP 114 / 60; Pulse 78; Resp 20; Pulse Ox 96% on R/A; 3 15:19 Body Mass Index 30.17 (106.59 kg, 187.96 cm) 3 MDM: 15:24 Patient medically screened. pm1 19:24 Data reviewed: vital signs. Data interpreted: Pulse oximetry: on room air is 99 %. pm1 Interpretation: normal. 19:30 Counseling: I had a detailed discussion with the patient and/or guardian regarding: the pm1 historical points, exam findings, and any diagnostic results supporting the discharge/admit diagnosis, lab results, radiology results, the need for further work-up and treatment in the hospital. 19:45 Physician consultation: Ned Velasquez MD was called at 19:42, was contacted at 19:45, pm1 regarding consult, patient's condition, and will see patient tomorrow, Patient awake and alert so he can perform PD himself. 12/25 15:36 Order name: CBC with Diff; Complete Time: 16:08 pm1 12/25 15:36 Order name: BMP; Complete Time: 17:02 pm1 12/25 16:10 Order name: Flu; Complete Time: 17:02 pm1 12/25 16:10 Order name: COVID-19 SARS RT PCR (Document "Date of Onset" if Symptomatic); Complete pm1 Time: 18:10 12/25 17:07 Order name: LFT's; Complete Time: 19:24 pm1 12/25 17:07 Order name: Magnesium; Complete Time: 19:24 pm1 12/25 17:07 Order name: PT-INR; Complete Time: 18:42 pm1 12/25 17:07 Order name: Troponin HS; Complete Time: 19:24 pm1 12/25 17:07 Order name: XRAY Chest (1 view); Complete Time: 18:55 pm1 12/25 17:07 Order name: CT Abd/Pelvis - Without Contrast; Complete Time: 18:10 pm1 12/25 15:36 Order name: IV Saline Lock; Complete Time: 15:40 pm1 12/25 17:07 Order name: EKG; Complete Time: 17:07 pm1 12/25 17:07 Order name: Cardiac monitoring; Complete Time: 17:09 pm1 12/25 17:07 Order name: EKG - Nurse/Tech; Complete Time: 18:57 pm1 12/25 17:07 Order name: Labs collected and sent; Complete Time: 18:57 pm1 12/25 17:07 Order name: O2 Per Protocol; Complete Time: 17:09 pm1 12/25 17:07 Order name: O2 Sat Monitoring; Complete Time: 17:09 pm1 EC:10 Rate is 78 beats/min. Rhythm is regular, Normal Sinus Rhythm with No ectopy. QRS [place] pm1 is Normal. [place] interval is normal. QRS interval is normal. QT interval is normal. No Q waves. T waves are Normal. No ST changes noted. Clinical impression: Normal ECG. Administered Medications: 15:48 Drug: NS 0.9% 250 ml Route: IV; Rate: calculated rate; Site: right antecubital; 3 16:10 Follow up: IV Status: Completed infusion; IV Intake: 250ml [facility] 16:12 Drug: Pepcid (famotidine) 20 mg Route: IVP; Site: right antecubital; 3 19:14 Follow up: Response: No adverse reaction 3 16:12 Drug: NS 0.9% 250 ml Route: IV; Rate: bolus; Site: right antecubital; 3 19:48 Follow up: IV Status: Completed infusion; IV Intake: 250ml 3 19:02 Drug: NS 0.9% 250 ml Route: IV; Rate: bolus; Site: right antecubital; 3 19:47 Follow up: IV Status: Completed infusion; IV Intake: 250ml 3 19:42 Drug: fentaNYL (PF) 25 mcg Route: IVP; Site: right antecubital; 3 21:25 Follow up: Response: Pain is decreased 3 Disposition: 19:38 Co-signature as Attending Physician, Jonatan GÓMEZ was immediately available on-site ms3 in the Emergency Department for consultation in the care of the patient.. Disposition Summary: 12/25/21 19:48 Hospitalization Ordered Hospitalization Status: Inpatient Admission pm1 Provider: Hussein Lund pm1 Location: Telemetry/[facility] (Inpatient) pm1 Condition: Stable pm1 Problem: new pm1 Symptoms: have improved pm1 Bed/Room Type: Standard pm1 Room Assignment: 403(12/25/21 23:22) eb1 Diagnosis - Dehydration pm1 - Vomiting pm1 - Diarrhea, unspecified pm1 - Chest pain, unspecified pm1 Forms: - Medication Reconciliation Form pm1 - SBAR form pm1 Signatures: Dispatcher [employer] EDMS Gerry Felix NP DOCUMENTATION LIAISON pm1 Milli Harrington RN RN eb1 Jonatan Alarcon DO DO ms3 Ernestina Qiu, MONA RN eh3 Corrections: (The following items were deleted from the chart) 19:48 pm1 eb1
--- NOTE | 2021-12-25 22:02 | P.HP ---
Certification for Inpatient Patient admitted to: Inpatient With expected LOS: >2 Midnights Patient will require the following post-hospital care: None Practitioner: I am a practitioner with admitting privileges, knowledge of patient current condition, hospital course, and medical plan of care. Services: Services provided to patient in accordance with Admission requirements found in Title 42 Section 412.3 of the Code of Federal Regulations Patient History Date of Service: 12/25/21 Primary Care Provider: Dr. Velasquez Reason for admission: Hypertension, NSTEMI, ESRD History of Present Illness: 66-year-old male with history of ESRD on PD, COPD, hypertension, hyperlipidemia presents the emergency department for low blood pressure. He recently had a colonoscopy yesterday and of course prior to this completed preparation he reports lots of diarrhea as well as some vomiting yesterday. 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 He was referred to the emergency department for further evaluation. In the emergency department he received approximately 750 cc of IV fluids his blood pressures responded well it is increased to around 110-115 systolic. His labs were significant for potassium of 3.3 creatinine 8.15 GFR 7 BUN 37 troponin 104.4 chest x-ray shows no acute cardiopulmonary process. No significant change from comparison study. He had a CT performed of the abdomen and pelvis which showed a 16mm rounded nodule in the posteromedial right lung base not change from comparison. Prominent diverticulosis without diverticulitis or acute colonic findings. Patient did report some chest pain during her stay in the emergency department described as burning felt like indigestion to him lasted for 2 to 3 minutes. He was given some Pepcid and his symptoms resolved. His EKG showed ST elevation Case was discussed with cardiology recommends trending troponins no anticoagulation at this time. Will admit for further evaluation and management. Allergies No Known Allergies Allergy (Verified 07/09/20 10:01) Home Medications: Albuterol Sulfate [Proair Respiclick] 90 mcg IH PRN PRN 06/29/20 Allopurinol 300 mg PO DAILY 06/29/20 Aspirin [Aspirin EC 81 MG] 81 mg PO DAILY 06/29/20 Atorvastatin Calcium 20 mg PO DAILY 06/29/20 Carvedilol [Coreg] 12.5 mg PO BID 06/29/20 Ergocalciferol (Vitamin D2) [Vitamin D2] 50,000 unit PO EVERY 7TH DAY 06/29/20 Famotidine 20 mg PO BID 06/29/20 Fluticasone/Vilanterol [Breo Ellipta 100-25 Mcg INH] 1 each IH PRN PRN 06/29/20 Furosemide 20 mg PO DAILY 06/29/20 Hydralazine [Apresoline] 10 mg PO BID 06/29/20 Magnesium Oxide 400 mg PO DAILY 06/29/20 Tadalafil [Cialis] 5 mg PO PRN PRN 06/29/20 Tamsulosin [Flomax] 0.4 mg PO BEDTIME 06/29/20 calcitrioL [Rocaltrol] 0.25 mcg PO SEECOM 06/29/20 Amlodipine [Norvasc*] 1 tab PO DAILY 07/09/20 Ivermectin 7 tab PO DAILY 07/09/20 - Past Medical/Surgical History Diabetic: Yes -: Hypertension -: Hyperlipidemia -: Aortic aneurysm stent -: Polycystic kidney disease -: Chronic kidney disease -: GERD -: Diabetes mellitus type 2 -: COPD -: AAA repair Psychosocial/ Personal History: Patient is , has 2 children and is now retired. - Family History dad -: Diabetes, Kidney disease - Social History Smoking Status: Never smoker Alcohol use: No CD- Drugs: No Caffeine use: No Place of Residence: Home Review of Systems 10-point ROS is otherwise unremarkable General: Weakness, Malaise Cardiovascular: Chest Pain, As per HPI Gastrointestinal: Diarrhea Physical Examination - Physical Exam General: Alert, In no apparent distress, Oriented x3 HEENT: Atraumatic, PERRLA, Mucous membr. moist/pink, EOMI, Sclerae nonicteric Neck: Supple, 2+ carotid pulse no bruit, No LAD, Without JVD or thyroid abnormality Respiratory: Clear to auscultation bilaterally, Normal air movement Cardiovascular: Regular rate/rhythm, Normal S1 S2 Capillary refill: <2 Seconds Gastrointestinal: Normal bowel sounds, No tenderness Musculoskeletal: No tenderness Integumentary: No rashes Neurological: Normal speech, Normal strength at 5/5 x4 extr, Normal tone, Normal affect - Studies Laboratory Data (last 24 hrs) 12/25/21 18:28: PT 11.5, INR 1.05 12/25/21 18:28: Magnesium 2.1, Total Bilirubin 0.5, AST 9 L, ALT 12, Alkaline Phosphatase 55 12/25/21 15:38: Sodium 137, Potassium 3.3 L, BUN 37 H, Creatinine 8.15 H*, Glucose 97 12/25/21 15:38: WBC 10.90, Hgb 13.4 L, Hct 40.7, Plt Count 256 Microbiology Data (last 24 hrs): 12/25/21 16:17 Nasopharnyx Influenza Type A Antigen Screen - Final 12/25/21 16:17 Nasopharnyx Influenza Type B Antigen Screen - Final Assessment and Plan - Plan Assessment: NSTEMI Hypotension, malaise/weakness likely secondary to volume depletion ESRD on PD COPD Hypertension Hyperlipidemia Plan: NSTEMI: Suspect related to demand ischemia/hypotension along with decreased renal clearance. We will trend troponins and monitor on telemetry. Patient denies any chest pain currently but did have a brief episode of chest pain during her stay in the emergency department although this was described as burning. Discussed case with cardiology. Cardiology consult in place. Echocardiogram also ordered. Hypotension, malaise/weakness likely secondary to volume depletion: Blood pressure improved after small fluid boluses in the emergency department. We will provide fluid boluses as needed to maintain blood pressure. Symptoms and hypotension began after colonoscopy prep with copious amounts of diarrhea as well as vomiting. Patient symptoms have improved only small amounts of diarrhea currently present. CT negative for acute abdominal findings. ESRD on PD: Nephrology consulted. Patient will need to manage his peritoneal dialysis, cleared by nephrology. COPD: Continue home medications Hypertension: Continue home medications Hyperlipidemia: Continue home medications DVT PPX: Heparin Code status: Full Discharge Plan: Home Plan to discharge in: 48 Hours - Advance Directives Does patient have a Living Will: No Does patient have a Durable POA for Healthcare: No - Code Status/Comfort Care Code Status Assessed: Yes (Full code) Critical Care: No Time Spent Managing Pts Care (In Minutes): 70
[2021-12-25] MEDS ORDERED: ONDANSETRON 4 MG/2 ML VIAL IV PRN (22:22)
[2021-12-25] MEDS ORDERED: ATORVASTATIN 40 MG TAB PO SCH (22:30)
[2021-12-25] MEDS: HEPARIN 5000 UNIT/ML 1 ML VIAL SQ SCH (22:30)
[2021-12-25] MEDS ORDERED: HEPARIN 5000 UNIT/ML 1 ML VIAL ONE (22:33)
[2021-12-25] MEDS ORDERED: ATORVASTATIN 20 MG TAB ONE (22:33)
[2021-12-26 00:17] VITALS: BMI 30.1
[2021-12-26 01:06] VITALS: O2SAT 97
[2021-12-26 05:59] LABS: Hematocrit 37.4 % (39.6-49.0); Lymphocytes % 19.5 % (15.3-44.8); MCV 95.5 fL (80-100); MPV 7.8 fL (7.6-11.3); RBC Red Blood Cell Count 3.91 M/uL (4.33-5.43)
[2021-12-26 06:24] LABS: Albumin 2.8 g/dL (3.4-5.0); Bilirubin Total 0.4 mg/dL (0.2-1.0); Magnesium 2.1 mg/dL (1.8-2.4); Protein, Total 6.3 g/dL (6.4-8.2)
[2021-12-26 06:26] LABS: Troponin High Sensitivity 76.4 pg/mL (<58.9)
[2021-12-26] MEDS ORDERED: PANTOPRAZOLE 40MG TABLET PO SCH (06:30)
[2021-12-26] MEDS: HEPARIN 5000 UNIT/ML 1 ML VIAL SQ SCH (08:17)
[2021-12-26] MEDS ORDERED: ASPIRIN EC 81 MG TAB PO SCH (09:00)
[2021-12-26] MEDS ORDERED: ACETAMINOPHEN 325 MG TABLET PO PRN (11:38)
[2021-12-26] MEDS ORDERED: POTASSIUM CL SA 10 MEQ TAB PO ONE (12:22)
--- NOTE | 2021-12-26 13:14 | P.DS ---
Admission Date: 12/25/21 Discharge Date: 12/26/21 Primary Care Provider: Dr. Velasquez Disposition: ROUTINE DISCHARGE Discharge Condition: GOOD Reason for Admission: Hypertension, NSTEMI, ESRD Consultations: Nephrology - Dr. Velasquez Cardiology - Dr. Shanks Brief History of Present Illness: 66-year-old male with history of ESRD on PD, COPD, hypertension, hyperlipidemia presents the emergency department for low blood pressure. He recently had a colonoscopy yesterday and of course prior to this completed preparation he reports lots of diarrhea as well as some vomiting yesterday. 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 He was referred to the emergency department for further evaluation. In the emergency department he received approximately 750 cc of IV fluids his blood pressures responded well it is increased to around 110-115 systolic. His labs were significant for potassium of 3.3 creatinine 8.15 GFR 7 BUN 37 troponin 104.4 chest x-ray shows no acute cardiopulmonary process. No significant change from comparison study. CT abdomen/pelvis: 16mm rounded nodule in the posteromedial right lung base not change from comparison. Prominent diverticulosis without diverticulitis or acute colonic findings. Patient did report some chest pain during her stay in the emergency department described as burning felt like indigestion to him lasted for 2 to 3 minutes. He was given some Pepcid and his symptoms resolved. Hospital Course: Problem List Hypotension, malaise/weakness likely secondary to volume depletion troponin leak / demand ischemia ESRD on PD COPD Hypertension Hyperlipidemia Patient presented with low blood pressure, dizziness/lightheadedness after colonoscopy prep and severe diarrhea. Also reported chest pain. Blood pressure and symptoms improved/resolved with IV fluid. He received 750ml. Blood pressure remained stable 100-120s systolic. He was ambulating without issue. Tolerated diet without nausea/vomiting. Diarrhea resolved. Troponins were mildly elevated and trended down. Cardiology was consulted. Patient had recent stress testing ~1 month ago which was normal. [place] troponin leak was secondary to hypotension/hypovolemia, no further cardiac evaluation/intervention needed at this time. Nephrology was consulted. Reviewed blood pressure medications. Continue / hold medications as instructed by nephrology. Follow up: Nephrology in ~2 weeks PCP within 1 week Vital Signs/Physical Exam: Temp Pulse Resp BP Pulse Ox 97.4 F 74 14 104/51 L 97 12/26/21 08:00 12/26/21 08:00 12/26/21 08:00 12/26/21 08:00 12/26/21 08:00 General: Alert, In no apparent distress, Oriented x3 HEENT: EOMI, Sclerae nonicteric Neck: Supple, No LAD Respiratory: Clear to auscultation bilaterally, Normal air movement Cardiovascular: No edema, Regular rate/rhythm Gastrointestinal: Soft and benign, Non-distended, No tenderness Musculoskeletal: No erythema, No tenderness Integumentary: No significant lesion Neurological: Normal speech, Normal strength at 5/5 x4 extr, Normal affect Laboratory Data at Discharge: WBC 10.10 K/uL (4.3-10.9) 12/26/21 05:48 Hgb 12.2 g/dL (13.6-17.9) L D 12/26/21 05:48 Hct 37.4 % (39.6-49.0) L 12/26/21 05:48 Plt Count 200 K/uL (152-406) 12/26/21 05:48 PT 11.5 SECONDS (9.5-12.5) 12/25/21 18:28 INR 1.05 12/25/21 18:28 Sodium 139 mmol/L (136-145) 12/26/21 05:48 Potassium 3.0 mmol/L (3.5-5.1) L 12/26/21 05:48 BUN 37 mg/dL (7-18) H 12/26/21 05:48 Creatinine 7.95 mg/dL (0.55-1.3) H* 12/26/21 05:48 Glucose 112 mg/dL (74-106) H 12/26/21 05:48 Magnesium 2.1 mg/dL (1.8-2.4) 12/26/21 05:48 Total Bilirubin 0.4 mg/dL (0.2-1.0) 12/26/21 05:48 AST 8 U/L (15-37) L 12/26/21 05:48 ALT 11 U/L (12-78) L 12/26/21 05:48 Alkaline Phosphatase 50 U/L (45-117) 12/26/21 05:48 Triglycerides 149 mg/dL (<150) 12/26/21 05:48 Cholesterol 118 mg/dL (<200) 12/26/21 05:48 HDL Cholesterol 28 mg/dL (40-60) L 12/26/21 05:48 Cholesterol/HDL Ratio 4.21 12/26/21 05:48 Home Medications: Albuterol Sulfate [Proair Respiclick] 90 mcg IH PRN PRN 06/29/20 Allopurinol 300 mg PO DAILY 06/29/20 Aspirin [Aspirin EC 81 MG] 81 mg PO DAILY 06/29/20 Atorvastatin Calcium 20 mg PO DAILY 06/29/20 Carvedilol [Coreg] 12.5 mg PO BID 06/29/20 Ergocalciferol (Vitamin D2) [Vitamin D2] 50,000 unit PO EVERY 7TH DAY 06/29/20 Famotidine 20 mg PO BID 06/29/20 Fluticasone/Vilanterol [Breo Ellipta 100-25 Mcg INH] 1 each IH PRN PRN 06/29/20 Furosemide 20 mg PO DAILY 06/29/20 Hydralazine [Apresoline*] 10 mg PO BID 06/29/20 Magnesium Oxide 400 mg PO DAILY 06/29/20 Tadalafil [Cialis] 5 mg PO PRN PRN 06/29/20 Tamsulosin [Flomax*] 0.4 mg PO BEDTIME 06/29/20 calcitrioL [Rocaltrol] 0.25 mcg PO SEECOM 06/29/20 Amlodipine [Norvasc*] 1 tab PO DAILY 07/09/20 Ivermectin 7 tab PO DAILY 07/09/20 Physician Discharge Instructions: Patient presented with low blood pressure, dizziness/lightheadedness after colonoscopy prep and severe diarrhea. Also reported chest pain. Blood pressure and symptoms improved/resolved with IV fluid. He received 750ml. Blood pressure remained stable 100-120s systolic. He was ambulating without issue. Tolerated diet without nausea/vomiting. Diarrhea resolved. Troponins were mildly elevated and trended down. Cardiology was consulted. Patient had recent stress testing ~1 month ago which was normal. [place] troponin leak was secondary to hypotension/hypovolemia, no further cardiac evaluation/intervention needed at this time. Nephrology was consulted. Reviewed blood pressure medications. Continue / hold medications as instructed by nephrology. Follow up: Nephrology in ~2 weeks PCP within 1 week Followup: Ned Velasquez MD [ACTIVE - CAN ADMIT] - NONE,NONE [Primary Care Provider] - Time spent managing pt's care (in minutes): 45
[2021-12-26 13:24] VITALS: BP 108/66; TEMP 97
--- NOTE | 2021-12-26 14:31 | EKG ---
Test Date: 2021-12-25 Test Time: 18:52:54 Support Team Assoc: [facility] MEASUREMENT RESULTS: Intervals: Rate: 78 NE: 230 QRSD: 94 QT: 390 QTc: 444 [place]: P: 89 NE: 230 QRS: -23 T: 17 INTERPRETIVE STATEMENTS: Sinus rhythm with 1st degree AV block Septal infarct, age undetermined Abnormal ECG Compared to ECG 09/30/2020 09:34:03 Myocardial infarct finding now present Sinus bradycardia no longer present ST (T wave) deviation no longer present Electronically Signed On 12-26-21 14:28:36 CDT by Eliu Shanks
--- NOTE | 2021-12-26 14:56 | CON ---
Date of Consultation: 12/26/2021 Reason For Consultation: Elevated BUN and creatinine, fluid management, hypertension, end-stage renal disease, on peritoneal dialysis. History Of Present Illness: This is a 66-year-old gentleman, well known to me from the dialysis with significant past medical history of end-stage renal disease, on peritoneal dialysis daily using 8 L of exchange, 1.5 concentration, polycystic kidney disease, hyperlipidemia, CAD, AAA, COPD, the patient came to the office yesterday. Apparently, the patient had colonoscopy day before with the preparation. The patient after that started feeling dizzy, lightheaded, in the office found to have blood pressure down to the 70. For that reason, EMS was called and brought to the hospital, in the hospital found elevation in BUN and creatinine, elevation in troponin. The patient given boluses of 750, blood pressure stabilized BP medication was held. Repeated cardiac enzyme, no trend up. The patient used his PD from home service. Ultrafiltration was 0 over the night. Past Medical History: Includes; 1. Hypertension. 2. Hyperlipidemia. 3. End-stage renal disease, on PD secondary to polycystic kidney disease. 4. COPD. 5. AAA. 6. Diabetes. Family History: Positive for diabetes. Social History: Ex-smoker, active caffeine. Denied alcohol. Denied drugs abuse. Review of Systems: Head and Neck: Lightheaded. GI: Has epigastric pain. : No polyuria. No dysuria. No hematuria. Client Integration Manager: Not applicable. Respiratory: No shortness of breath. Cardiovascular: Has chest pain. Endocrine: No polydipsia. Skin: No rash. Neuro: Has neuropathy. Musculoskeletal: Generalized fatigue. Physical Examination: Vital Signs: When I saw the patient; blood pressure of 107/60, pulse of 88. Chest: Clear to auscultation. Heart S1, S2. Systolic murmur. Abdomen: Soft, nontender. Could not appreciate any organomegaly. PD catheter in place, clean exit site. Extremities: No edema. Neurological: Alert, oriented x3. No focal. Laboratory Data: WBC 10.1, H and H 12.2/37.4. Sodium 139, potassium 3, bicarb 30, BUN 37, creatinine 7.9, calcium 8.9. Troponin 76. Albumin 3.5. Chest x- ray; no cardiomegaly, mild congestion. Home Medications: Include calcitriol 0.5 every other day, Cialis, Flomax, hydralazine 10 b.i.d., Lasix, ergocalciferol, carvedilol 12.5, atorvastatin, amlodipine, allopurinol. Assessment And Plan: 1. End-stage renal disease, currently normal volume. I am going to continue the same regimen of PD as no ultrafiltration. 2. Hypokalemia. We will supplement. 3. Hypotension secondary to gastrointestinal loss secondary to colon preparation. I will hold hydralazine, hold amlodipine, decrease carvedilol to 6.25 b.i.d. Discussed with the patient to do so and we will monitor outpatient. The patient cleared from the Renal standpoint for discharge planning to follow up in the office. 4. Diabetes as by primary. 5. Coronary artery disease, non-ST elevation has been ruled out. We will follow up. Time spent examining the patient [id number], reviewing data, lab and radiology, discussing the case with the patient, discussing the case with body team member including nursing and hospitalist more than 65 minutes ZI Voice ID: [id number] Report ID: [id number] LYNDA
--- NOTE | 2021-12-26 19:17 | CON ---
Date of Consultation: 12/26/2021 Reason For Consultation: Hypertension and elevated troponin. History Of Present Illness: A 66-year-old male with history of end-stage renal disease, on peritonea l dialysis, hypertension, COPD, dyslipidemia, presented due to low blood pressure. After he complete d the preparation for the colonoscopy, he started having diarrhea and then blood pressure dropped brittany n. He denies having any chest pain; however, troponin was drawn and was slightly elevated. The stephie ent had a stress test 2 months ago at our office and it was normal. Denies any chest pain. Past Medical History: As outlined above in the HPI. Medications: Refer to reconciliation sheet for detailed list. Allergies: NO KNOWN DRUG ALLERGIES. Family History: No premature coronary artery disease or cancer. Social History: Does not smoke or drink. Does not use any drugs. Review of Systems: All systems reviewed and they were negative except what mentioned in HPI. Physical Examination: Vital Signs: Reviewed. Head and Neck: Pupils are equal, reactive to light. Intact eye movements. No JVD. No cervical lym phadenopathy. Neck is supple. Thyroid is not enlarged. Lungs: Clear to auscultation bilaterally. No rhonchi, wheezing, or crackles. No accessory muscle u se. Heart: Regular rate and rhythm. No extra sounds. Abdomen: Soft, nontender. Bowel sounds positive. No organomegaly. No masses or hernia. No rigidi ty or rebound. Extremities: No edema, clubbing, or cyanosis. Intact pulses. Skin: No rash. Neurologic: Alert, awake, oriented x3. No acute focal deficits appreciated. Investigations: Troponin is 104 and then down to 76, creatinine 7.9. Assessment And Recommendations: 1.Elevated troponin. This is demand ischemia due to hypotension. The patient had recent stress wero t that was normal. No further cardiac workup is recommended from Cardiology standpoint. The patient can be released home to follow up with Dr. Baum as an outpatient. 2.Hypotension probably due to diarrhea after preparation for colonoscopy and now his blood pressure is better. No further action is needed. 3.End stage renal disease, on peritoneal dialysis. SR/MODL Voice ID: [id number] Report ID: [id number]
== END 2021-12-26 14:12 | disposition home or self-care (01) | DRG 640 ==
LOC: ER 15:08 → ERHOLD 21:13 → 4TH 23:22
PROVIDERS: ADMIT Hospitalist; ATTEND Hospitalist
DX: E86.9 Volume depletion, unspecified (principal); N18.6 End stage renal disease; I12.0 Hypertensive chronic kidney disease with stage 5 chronic kidney disease or end stage renal disease; I24.8 Other forms of acute ischemic heart disease; Q61.3 Polycystic kidney, unspecified; J44.9 Chronic obstructive pulmonary disease, unspecified; K21.9 Gastro-esophageal reflux disease without esophagitis; M10.9 Gout, unspecified; E87.6 Hypokalemia; I25.10 Atherosclerotic heart disease of native coronary artery without angina pectoris; E78.5 Hyperlipidemia, unspecified; E11.22 Type 2 diabetes mellitus with diabetic chronic kidney disease; I71.40 Abdominal aortic aneurysm, without rupture, unspecified; Z99.2 Dependence on renal dialysis; Z79.01 Long term (current) use of anticoagulants; Z79.82 Long term (current) use of aspirin; Z87.891 Personal history of nicotine dependence; Z79.899 Other long term (current) drug therapy; Z20.822 Contact with and (suspected) exposure to COVID-19
CPT/HCPCS: 36415; 71045; 74176; 80048; 80053; 80061; 80076; 83735; 84484; 85025; 85610; 87804; 93005; 96361; 96365; 96375; 99285; J1644; J3010; J7050; U0003

== ENCOUNTER 2022-08-14 12:29 | Emergency (ER) | payer OTHER ==
--- OUTSIDE RECORDS SUMMARY | 2022-08-14 12:57 | XMS REPORT | Continuity of Care Document ---
:1955 Author Organization [facility] t Address [address] [facility] [address] [place] [address] Care Team Providers Name Role Phone LEANDRA SALGADO Primary Care Physician Unavailable DAYANA ALFREDO Attending Clinician Unavailable CAMELIA HENSLEY Attending Clinician Unavailable SILVINO COSME Attending Clinician Unavailable Dayana Alfredo Jr Attending Clinician BRITTNI NEWBERRY Attending Clinician Unavailable Brittni Newberry Attending Clinician UNKNOWN, ATTENDING Attending Clinician Unavailable Unknown, Attending Attending Clinician Unavailable MASON ELLIOTT Attending Clinician Unavailable DR ALBINA WILKINS Attending Clinician Unavailable Silvino Cosme Attending Clinician ELENA TEIXEIRA Attending Clinician Unavailable Elena Teixeira Attending Clinician [phone] IDA MILNER Attending Clinician Unavailable Ida Milner Attending Clinician Ciro Toro Attending Clinician Manuel ARCOS, Gus Attending Clinician Maged ARCOS, Ke Burnette Attending Clinician [phone] Shaikh JOSSELYN, Giancarlo Attending Clinician Jeronimo ARCOS, Jaret Valle Attending Clinician [phone] Lisa ARCOS, David Attending Clinician Julia Clements DO Attending Clinician Dylon Krishnamurthy CRNA Attending Clinician [phone] CAMELIA HENSLEY Attending Clinician Unavailable Camelia Hensley Attending Clinician Teixeira MD, Elena Attending Clinician [phone] CHICO MCARTHUR Attending Clinician Unavailable Chico Mcarthur Attending Clinician Mai ARCOS, Maryan Zuleta Attending Clinician Jeremy Cool MD Attending Clinician Chico Mcarthur MD Attending Clinician Dominique Nelson MD Attending Clinician Brittni Del Valle DO Attending Clinician [phone] Jazmyn Torres MD Attending Clinician Julian Rivero MD Attending Clinician Isabelle Wetzel MD Attending Clinician Violette Azul Attending Clinician Abbi Mccain MA Attending Clinician Unavailable Kenia ARCOS, Constantin Attending Clinician Treva ARCOS, Serge Hillman Attending Clinician [phone] Ollie Rolle MD Attending Clinician KATEY LASSITER Attending Clinician Unavailable Maikol ARCOS, Katey Attending Clinician SILVINO COSME M.D. Attending Clinician Unavailable ORGANTRANSPLANT, OP Attending Clinician Unavailable Arnaldo Blackman Attending Clinician YURI MALLORY M.D. Attending Clinician UnavailCAMELIA Ayala M.D. Attending Clinician Unavailable Katey Lassiter Attending Clinician Lucila Healy Attending Clinician Damion Monson Attending Clinician Brigido Menendez Attending Clinician Geraldo Thornton Attending Clinician Segundo Lugo Attending Clinician DAYANA ALFREDO Admitting Clinician Unavailable CHAYO MOTA Admitting Clinician Unavailable MASON ELLIOTT Admitting Clinician Unavailable DR LABINA WILKINS Admitting Clinician Unavailable Ciro Toro Admitting Clinician KE GU Admitting Clinician Unavailable ELENA TEIXEIRA Admitting Clinician Unavailable Elena Teixeira Admitting Clinician Elena Teixeira MD Admitting Clinician [phone] JEREMY COOL Admitting Clinician Unavailable JAZMYN TORRES Admitting Clinician Unavailable DOMINIQUE NELSON Admitting Clinician Unavailable KATEY LASSITER Admitting Clinician Unavailable Payers Payer Name Policy Type Policy Number Effective Date Expiration Date S ravinder [employer]ET[employer] CHOICE POS II [id number] 2017 00:00:00 MEDICARE PART A \\T\\ [id number] 2017 B 00:00:00 [employer] COMMERCIAL [id number] 2020 OUT OF NETWORK 00:00:00 [id number] 1959 00:00:00 [id number] 1961 00:00:00 Problems Condition Condition Condition Status Onset Resolution Last Treating Co mments Source Name Details Category Date Date Treatment Clinician Date LABS LABS Diagnosis Active 2022-08-04 Mem oria Active 07-31 13:21:00 l 07/31/2022 11:00: Oni gutierrez [address] End stage End Diagnosis Active 2022-08-03 Memoria renal stage 07-05 06:55:11 l disease renal 00:00: Zen (disorder) disease 00 (disorder) Active 07/05/2022 Diagnosis 08/03/2022 [facility] HLA LABS HLA LABS Diagnosis Active 2022-07-07 Memoria ONLY ONLY 07-02 11:27:00 l Active 00:00: Zen 07/02/[address] [facility] PRE-RENAL PRE-RENAL Diagnosis Active 2022-06-17 Memoria LISTED LISTED 06-11 15:07:00 l UPDATE UPDATE 11:00: Zen Active 00 06/11/2022 [facility] End stage End stage Diagnosis Active 2022-06-08 Memoria renal renal 05-13 06:30:51 l disease disease 00:00: Zen (disorder) (disorder) 00 Active 05/13/2022 Diagnosis 06/08/2022 [facility] Urinary Urinary Disease Active [facility] frequency frequency 3-05 Heal th 00:00: 00 LABS ONLY LABS ONLY Diagnosis Active 2022-04-11 Memoria Active 04-09 12:34:00 l 04/09/2022 11:00: Oni gutierrez [address] Glycosuria Glycosuria Disease Active [facility] 00:00: 00 Lung Lung Disease Active [facility] nodules nodules 8-29 [facility] 00:00: 00 LISTED LISTED Diagnosis Active 2021-09-25 Me moria UPDATE UPDATE 09-06 07:35:00 l Active 00:00: Zen 09/06/2021 [facility] OPEN OPEN Diagnosis Active 2021-07-12 Mem oria ENCOUNTER ENCOUNTER 06-07 13:02:00 l Active 00:00: [place] 06/07/2021 [facility] REPEAT REPEAT Diagnosis Active 2021-11-12 Me moria TSPOT TSPOT 06-07 09:11:00 l Active 00:00: [place] 06/07/[address] [facility] LABS LABS Diagnosis Active 2022-03-10 Mem oria Active 05-09 11:08:00 l 05/09/2021 00:00: Oni gutirerez [address] Vitamin D Vitamin D Disease Active [place] deficiency deficiency 04-29 He alth , , 00:00: unspecifie unspecifie 00 d d Other Other Disease Active [facility] fatigue fatigue 04-29 Health 00:00: 00 LISTED LISTED Diagnosis Active 2021-04-08 Me moria UPDATE UPDATE 04-04 12:02:00 l VISIT VISIT 00:00: [place] Active 00 04/04/2021 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 Night-time Night-kevin Problem Active 2021-07-24 Memoria intermitte e 6 07:01:40 l nt intermitte 00:00: Oni gutierrez peritoneal nt 00 dialysis peritoneal (procedure dialysis ) (procedure ) Active 07/31/2020 Problem 07/24/2021 pt has PD 9 hours per night while sleeping [facility] Malpositio Malpositio Disease Active M ethodi n of n of -25 st peritoneal peritoneal 00:00: Ho spita dialysis dialysis 00 l catheter catheter HTN HTN Disease Active Methodi (hypertens (hypertens 5-11 st ion) ion) 00:00: Hospita 00 l HLD HLD Disease Active Methodi (hyperlipi (hyperlipi 5-11 st demia) demia) 00:00: Hospita 00 l Anemia of Anemia of Disease Active Met hodi chronic chronic 5-11 st disease disease 00:00: Hospita 00 l (+) (+) Diagnosis Active 2020-06-14 Mem oria STRONGYLOI STRONGYLOI 06-13 07:11:00 l JAYESH JAYESH Active 00:00: Oni n 06/13/[address] [facility] PRE-TRANSP PRE-TRANS Diagnosis Active 2020-07-02 Memoria LANT EVAL PLANT EVAL 05-30 09:01:00 l FOR KIDNEY FOR KIDNEY 00:00: He alyssa TRANSPLAN TRANSPLAN 00 Active 05/30/2020 [facility] N18.9 - N18.9 - Diagnosis Active 2020-05-13 Memoria CHRONIC CHRONIC 2-10 15:13:00 l KIDNEY KIDNEY 00:01: Zen DISEASE, DISEASE, 00 UNSPEC N UNSPEC N Active 04/11/2020 LAURA Zaldivar NON LISTED NON Diagnosis Active 2020-04-25 Memoria UPDATE LISTED 03-16 08:24:00 l UPDATE 00:00: [place] Active 00 03/16/2020 [facility] ESRD ESRD Diagnosis Active 2020-04-25 Mem oria Active 03-16 12:53:00 l 03/16/2020 00:00: Oni gutierrez [address] HLA MAIL HLA MAIL Diagnosis Active 2020-03-15 Memoria IN LABS IN LABS 11-20 16:33:00 l Active 00:00: Zen 11/21/[address] [facility] History of History of Disease Active U T multiple multiple 10-23 Health pulmonary pulmonary 00:00: nodules nodules 00 Hyperfunct Hyperfunct Disease Active 2019- U T ion, ion, 10-23 Health testicular testicular 00:00: 00 Aneurysm Aneurysm Disease Active 2019- [facility] 10-23 [facility] 00:00: 00 Erectile Erectile Disease Active 2019- [place] dysfunctio dysfunctio 10-23 He alth n n 00:00: 00 Z01.818 - Z01.818 - Diagnosis Active 2019-10-14 Memoria ENCOUNTER ENCOUNTER 09-05 07:56:00 l FOR OTHER FOR OTHER 00:01: Joseph melendez PREPROCEDU PREPROCEDU 00 Active 09/06/2019 OPID Zen NEW NEW Diagnosis Active 2020-03-01 Mem oria ENCOUNTER ENCOUNTER 07-21 05:58:00 l CREATED CREATED 00:00: [place] Active 00 07/22/2019 [facility] LABH LABH Diagnosis Active 2019-05-13 Mem oria Active 05-08 08:44:00 l 05/09/2019 11:00: Oni gutierrez [address] F/U F/U Diagnosis Active 2019-04-01 Mem oria Active 03-17 09:26:00 l 03/17/2019 00:00: Oni gutierrez [address] FOLLOW UP FOLLOW UP Diagnosis Active 2019-04-04 Memoria Active 03-08 07:14:00 l 03/08/2019 00:00: Oni gutierrez [address] D47.2 - D47.2 - Diagnosis Active 2019-05-19 Memoria MONOCLONAL MONOCLONAL 06-25 13:49:00 l GAMMOPATHY GAMMOPATHY 00:01: Ld almanzarann Active 00 06/25/2018 LAURA Zaldivar CKD 9 CKD 9 Diagnosis Active 2018-05-12 Mem oria CHRONIC CHRONIC 04-23 09:07:00 l KIDNEY KIDNEY 00:00: Zen DISEASE DISEASE 00 Active 04/23/2018 [facility] ELEVATED ELEVATED Diagnosis Active 2018-10-20 Memoria GAMMA GAMMA 04-22 12:47:00 l GLOBULIN/ GLOBULIN/ 00:00: Joseph melendez PRE PRE 00 -KIDNEY -KIDNEY WOR WOR Active 04/22/2018 [facility] KIDNEY/DO KIDNEY/DO Diagnosis Active 2022-05-14 Memoria NOT USE NOT USE 04-06 11:35:00 l FOR FOR 06:00: Zen CHARGES CHARGES 00 F/C NOTES F/C NOTES Active 04/06/2018 [facility] ESRD EVAL ESRD EVAL Diagnosis Active 2018-07-23 Memoria Active 2- 08:22:00 l 04/05/2018 00:00: Oni gutierrez [address] NEW NEW Diagnosis Active 2018-04-26 Mem oria EVALUATION EVALUATION 03-18 14:53:00 l Active 00:00: Zen 03/18/[address] [facility] Z87.891 - Z87.891 - Diagnosis Active 2017-10-24 Memoria PERSONAL PERSONAL 09-08 15:42:00 l HISTORY OF HISTORY OF 00:01: He rmann NICOTINE D NICOTINE D 00 Active 09/08/2017 CLARENCE Xavier WEAKNESS WEAKNESS Diagnosis Active 2016-11-03 Memoria Active 11-03 10:50:00 l 11/03/2016 00:00: Oni gutierrez [facility] 00 [place] THROAT THROAT Diagnosis Active 2015-09-10 Me moria PAIN PAIN 09-09 14:15:00 l Active 00:00: Zen 09/10/2015 00 [facility] CHEST PAIN CHEST Diagnosis Active 2015-06-20 Memoria PAIN 06-18 10:33:00 l Active 00:00: [place] 06/19/2015 00 [facility] History of History Problem Active 2021-07-24 Memoria - aortic of - 05-31 07:01:40 l aneurysm aortic 00:00: 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 06/01/2015 Problem 07/24/2021 had repair [facility] 491.20 - 491.20 - Diagnosis Active 2013-10-21 Memoria OBST CHR OBST CHR 09-10 10:38:00 l [facility] 00:01: Zen Active 00 09/10/2012 LAURA [employer] Dysphagia Dysphagia Problem Active 2021-07-24 Memoria (disorder) (disorder) 07:01:40 l Active [place] Problem 07/24/2021 [facility] Gastroesop Gastroeso Problem Active 2021-12-09 Memoria hageal phageal 23:34:32 l reflux reflux Zen disease disease (disorder) (disorder) Active Problem 12/09/2021 Data migrated from [facility] on 07/29/14. Medical Group,[facility] ,[facility],Diana Mackey,[facility] Final: Final: Problem 2015-06-23 Jonathan kayden Weakness Weakness 04:12:43 l 06/23/2015 Oni Xavier Final: Final: Problem 2015-06-23 Jonathan kayden Abdominal Abdominal 04:12:43 l aortic aortic Zen aneurysm, aneurysm, without without rupture rupture 06/23/2015 [place] Final: Final: Problem 2015-06-23 Jonathan kayden Hypertensi Hypertensi 04:12:43 l ve chronic ve chronic He rmann kidney kidney disease disease with stage with stage 1 through 1 through stage 4 stage 4 chronic chronic kidney kidney disease, disease, or or unspecifie unspecifie d chronic d chronic kidney kidney disease disease 06/23/2015 [place] Final: Final: Problem 2015-06-23 Jonathan kayden Chronic Chronic 04:12:43 l kidney kidney Zen disease, disease, unspecifie unspecifie d d 06/23/2015 [place] Abdominal Abdominal Problem Resolve 2021-12-09 Memoria aortic aortic d 23:34:32 l aneurysm aneurysm Oni n (disorder) (disorder) Resolved Problem 12/09/2021 Medical Group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, LAURA Zaldivar, LAURA Xavier Hyperchole Problem Active 2021-12-09 M emoria sterolemia Hyperchole 23:34:32 l (disorder) sterolemia He rmann (disorder) Active Problem 12/09/2021 Data migrated from [facility] on 07/29/14. Medical Group,[facility] ,[facility], [facility]aldivar, LAURA Xavier,[facility] Swallowing Swallowin Problem Active 2021-07-24 Memoria painful g painful 07:01:40 l (finding) (finding) Herm nora Active Problem 07/24/2021 [facility] Obstructiv Obstructi Problem Active 2021-07-24 Memoria e sleep ve sleep 07:01:40 l apnea apnea Zen syndrome syndrome (disorder) (disorder) Active Problem 07/24/2021 Has CPAP does not use [facility] Essential Essential Problem Active 2021-12-09 Memoria hypertensi hypertensi 23:34:32 l on on [place] (disorder) (disorder) Active Problem 12/09/2021 Data migrated from [employer] on 07/29/14. Medical Group,[facility], Diana Xavier, LAURA [facility] Hypogonadi Hypogonad Problem Active 2021-12-09 Memoria sm ism 23:34:32 l (disorder) (disorder) He rmann Active Problem 12/09/2021 Data migrated from [employer] on 07/29/14. Medical Group,[facility], Diana Xavier, LAURA Xavier,[facility] Kidney Kidney Problem Active 2019-04-16 Mem oria disease disease 23:45:59 l (disorder) (disorder) He rmann Active Problem 04/16/2019 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 ENCOUNTER ENCOUNTER Diagnosis Active 2019-05-13 Memoria FOR FOR 08:44:00 l PREPROCEDU PREPROCEDU He rmnora RAL RAL LABORATORY LABORATORY E E Active 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 N48.6 - N48.6 - Diagnosis Active 2021-05-09 Memoria INDURATION INDURATION 13:11:00 l PENIS PENIS Zen PLASTICA PLASTICA Active LAURA Zaldivar Z87.898 - Z87.898 - Diagnosis Active 2021-11-11 Memoria PERSONAL PERSONAL 08:45:00 l HISTORY OF HISTORY OF He rmann OTHER SPEC OTHER SPEC Active LAURA Xavier CHRONIC CHRONIC Diagnosis Active 2018-05-12 Memoria KIDNEY KIDNEY 09:07:00 l DISEASE, DISEASE, Oni n UNSPECIFIE UNSPECIFIE D D Active [facility] ENCOUNTER ENCOUNTER Diagnosis Active 2018-05-12 Memoria FOR OTHER FOR OTHER 09:07:00 l PREPROCEDU PREPROCEDU He rmann RAL EXAMIN RAL EXAMIN Active [facility] Constipati Problem Active 2021-07-24 M emoria on Constipati 07:01:40 l (disorder) on Oni n (disorder) Active Problem 07/24/2021 [facility] Antibiotic Antibioti Problem Active 2022-08-03 Memoria prophylaxi c 06:55:11 l s prophylaxi Oni n indicated s (context-d indicated ependent (context-d category) ependent category) Active Problem 08/03/2022 Medical Group,[facility], LAURA Zaldivar, LAURA Xavier,[facility] Arthritis Arthritis Problem Active 2022-08-03 Memoria (disorder) (disorder) 06:55:11 l Active Zen Problem 08/03/2022 Medical Group,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, LAURA Zaldivar, [facility] Benign Benign Problem Active 2022-08-03 Jonathan kayden prostatic prostatic 06:55:11 l hyperplasi hyperplasi He rmann a a (disorder) (disorder) Active Problem 08/03/2022 [facility], LAURA Zaldivar, [facility] Bladder Bladder Problem Active 2022-08-03 M emoria dysfunctio dysfunctio 06:55:11 l brenda Zaldivar (finding) (finding) Active Problem 08/03/2022 Medical Group,[facility], LAURA Zaldivar, [facility] Blood Blood Problem Active 2022-08-03 Memor ia coagulatio coagulatio 06:55:11 l n disorder n disorder He rmann (disorder) (disorder) Active Problem 08/03/2022 Medical Group,[facility], LAURA Zaldivar, LAURA Xavier,[facility] Chronic Chronic Problem Active 2022-08-03 [facility] kidney kidney 06:55:11 l disease disease Zen (disorder) (disorder) Active Problem 08/03/2022 Medical Group,[facility], LAURA Zaldivar, LAURA Xavier,[facility] Chronic Chronic Problem Active 2022-08-03 [facility] obstructiv obstructiv 06:55:11 l e lung e lung [place] disease disease (disorder) (disorder) Active Problem 08/03/2022 Medical Group,[facility], [place],[facility] LAURA basilio, LAURA Zaldivar, LAURA Xavier,[facility] Inflammato Inflammat Problem Active 2022-08-03 Memoria ry disease ory 06:55:11 l of liver disease of Herm nora (disorder) liver (disorder) Active Problem 08/03/2022 Medical Group,[facility], LAURA Zaldivar, LAURA Xavier,[facility] Low Low Problem Active 2022-08-03 Memor ia compliance compliance 06:55:11 l bladder bladder [place] (disorder) (disorder) Active Problem 08/03/2022 Medical Group,[facility], LAURA Zaldivar, LAURA Xavier,[facility] Microscopi Problem Active 2022-08-03 [facility] c Microscopi 06:55:11 l hematuria c Zen (disorder) hematuria (disorder) Active Problem 08/03/2022 Medical Group,[facility], LAURA Zaldivar, LAURA Xavier,[facility] Morbid Morbid Problem Active 2022-08-03 Jonathan kayden obesity obesity 06:55:11 l (disorder) (disorder) He rmann Active Problem 08/03/2022 Medical Group,[facility], LAURA Zaldivar, [facility] Patient Patient Problem Active 2022-08-03 Me cho encounter encounter 06:55:11 l status status [place] (finding) (finding) Active Problem 08/03/2022 Medical Group,[facility], LAURA Zaldivar, LAURA Xavier,[facility] Proteinuri Proteinur Problem Active 2022-08-03 Memoria a ia 06:55:11 l (finding) (finding) Herm nora Active Problem 08/03/2022 Medical Group,[facility], LAURA Zaldivar,[facility] Xavier,[facility] History of History of Problem Resolve [facility] [...] Physic i kidney kidney ans disease) disease) Prostate Prostate Problem Active [facility] cancer cancer Physici screening screening ans Hyperfunct Hyperfunct Problem Active U T ion, ion, Physici testicular testicular an s History of History of Problem Active U T multiple multiple Physic i pulmonary pulmonary ans nodules nodules Aneurysm Aneurysm Problem Active [facility] Physici ans Erectile Erectile Problem Active [facility] dysfunctio dysfunctio Ph ysici n n ans Gout Gout Problem Active 2015-06-23 2021-12-09 M emoria (disorder) (disorder) - 04:12:43 23:34:32 l Active 05:00: Zen Problem 00 12/09/2021 Data migrated from [employer] on 07/29/14. Medical Group,[facility] ,[facility], Diana Xavier,Diana Escobar [facility] History of Past Illness Condition Condition Condition Status Onset Resolution Last Treating Co mments Source Name Details Category Date Date Treatment Clinician Date Ulcer of Ulcer of Problem 2021-07-24 2021-07-24 Memoria esophagus esophagus 07-23 07:01:40 07:01:40 l without without 17:00: Zen bleeding bleeding 00 07/23/2021 07/24/2021 [facility] Hypomagnes Hypomagne Problem 2016-11-06 2016-11-06 Memoria emia semia 11-03 00:37:30 00:37:30 l 11/03/2016 05:00: Oni gutierrez 11/06/2016 00 [facility] Weakness Weakness Problem 2016-11-06 2016-11-06 Memoria 11/03/201611-03 00:37:30 00:37:30 l 11/06/2016 05:00: Oni gutierrez 00 [place] Other Other Problem 2016-11-06 2016-11-06 M emoria disorders disorders 11-03 00:37:30 00:37:30 l of of 05:00: Zen phosphorus phosphorus 00 metabolism metabolism 11/06/2016 [facility] Discharge Discharge Problem 2015-09-13 2015-09-13 Memoria Diagnosis: Diagnosis: 09-09 03:04:21 03:04:21 l Sore Sore 05:00: Zen throat throat 00 09/10/2015 09/13/2015 [facility] Discharge Problem 2015-09-13 2015-09-13 Memoria Diagnosis: Discharge 09-09 03:04:21 03:04:21 l Foreign Diagnosis: 05:00: Mehreen nn body (FB) Foreign 00 in soft body (FB) tissue in soft (Throat) tissue (Throat) 09/10/2015 09/13/2015 [facility] Discharge Discharge Problem 2015-06-23 [facility]: Diagnosis: 06-19 04:12:43 04:12:43 l Weakness Weakness 05:00: Oni gutierrez 06/20/2015 00 06/23/2015 [facility] Discharge Discharge Problem 2015-2015-06-23 2015-06-23 Memshannon Diagnosis: Diagnosis: 4- 04:12:43 04:12:43 l Chronic Chronic 05:00: Zen back pain back pain 00 06/20/2015 6 [facility] Discharge Discharge Problem 2015-2015-06-23 2015-06-23 Memoria Diagnosis: Diagnosis: 4- 04:12:43 04:12:43 l History of History of 05:00: He rmann AAA AAA 00 (abdominal (abdominal aortic aortic aneurysm) aneurysm) repair repair 06/20/2015 06/23/2015 [facility] Allergies, Adverse Reactions, Alerts Allergy Allergy Status Severity Reaction(s) Onset Inactive Treating Comm ents Source Name Type Date Date Clinician No Known DA Active [facility]oran s Memoria l (LUF/LI V/SA) NO KNOWN Drug Active [facility] No Known No Known Active Memori a Medicati Medicati l on on Zen Allergie Allergie s s Family History Family Member Diagnosis Comments Start Date Stop Date Source Natural mother No Known Problems Met [facility] Natural father Kidney disease [facility] Natural father Polycystic kidney Met [facility] disease Father Family history of [facility] stage renal disease Father [facility] history [facility] Kid[facility] transplant recipient Father [facility] history [facility] Polycystic kidney Social History Social Habit Start Date Stop Date Quantity Comments Source Gender identity [facility] Sexual orientation [facility] History of tobacco Current smoker [facility] use Exposure to 2022-06-16 2022-06-26 Not sure [facility] SARS-CoV-2 (event) 00:00:00 16:36:00 [facility] History of Social [address] function 00:00:00 00:00:00 Hospital Alcohol intake 2021-05-24 2021-05-24 Current drinker [facility] 00:00:00 00:00:00 of alcohol Hospital (finding) Alcohol Comment 2020-07-20 2020-07-20 less than [facility] 00:00:00 00:00:00 monthly Hospital Cigarettes smoked 2020-07-20 2020-07-[address] current (pack per 00:00:00 00:00:00 Hospita l day) - Reported Cigarette 2020-07-20 2020-07-20 [facility] pack-[facility] 00:00:[facility] 00:00:00 Hospital Tobacco use and 2020-07-20 2020-07-20 Smokeless [facility] exposure 00:00:00 00:00:00 tobacco non-user [facility] Social History 2020-06-14 2020-06-14 [facility] 13:01:46 13:01:46 Sex Ass[birth year] At [birth year] [facility] 00:00:00 00:00:00 Hospital Smoking Status Start Date Stop Date Source Tobacco smoking [facility] consumption unknown [facility] Social History [facility] Tobacco smoking status 2021-07-02 18:32:37 2021-07-02 [facility] 18:32:37 Medications Ordered Filled Start Stop Current Ordering Indication Dosage Frequency Signature Comments Components Source Medication Medication Date Date Medication? Clinician (SIG) Name Name calcitriol Yes 0.5 Memoria 0.5 mcg 4-18 microgram l oral 15:52: = 1 cap, [place] capsule 00 PO, Every Other Day gabapentin Yes 100 mg = 1 M emoria 100 mg oral 4-18 cap, PO, l capsule 15:52: TID, Zen 00 DIRECTED hydrALAZINE Yes 25 mg = 1 M emoria 25 mg oral 4-18 tab, PO, l tablet 15:52: TID [place] 00 Potassium Yes 20 mEq = 1 Me moria Chloride 4-18 tab, PO, l (Eqv-K-Tab) 15:52: Daily Mehreen nn 20 mEq oral 00 tablet, extended release allopurinol Yes 100 mg = 1 Memoria 100 mg oral 4-18 tab, PO, l tablet 15:49: Daily [place] 00 tamsulosin Yes 0.4 mg = 1 M emoria 0.4 mg oral 4-18 cap, PO, l capsule 12:51: Daily, 0 Oni n 00 Refill(s) pantoprazol Yes 20 mg = 1 M emoria e 20 mg 4-18 tab, PO, l oral 12:48: BID, 0 [place] enteric 00 Refill(s) coated tablet carvedilol 2023-0 Yes 12.5 mg = Me moria 12.5 mg 4-18 1 tab, PO, l oral tablet 12:46: BID, 0 Herm nora 00 Refill(s) allopurinol 2023-0 Yes 300 mg = 1 Memoria 300 mg oral 4-18 tab, PO, l tablet 12:45: Daily, 0 Zen 00 Refill(s) furosemide 2023-0 Yes 80 mg = 1 Me moria 80 mg oral 4-18 tab, PO, l tablet 12:45: Daily, 0 [place] 00 Refill(s) allopurinol 2022-0 Yes 1{tbl} QD Take 1 [facility] (Zyloprim) 8-30 tablet by Heal th 100 MG 16:31: mouth 1 tablet 24 (one) time each day. Magnesium 2022-0 Yes 400mg QD Take 400 UT Oxide -Mg 8-30 mg by Health Supplement 16:31: mouth 1 400 MG 24 (one) time capsule each day. allopurinol 2022-0 Yes 1{tbl} QD Take 1 UT (Zyloprim) 8-30 tablet by Heal th 100 MG 16:31: mouth 1 tablet 24 (one) time each day. Magnesium 2022-0 Yes 400mg QD Take 400 UT Oxide -Mg 8-30 mg by Health Supplement 16:31: mouth 1 400 MG 24 (one) time capsule each day. potassium 2022-0 Yes QD Take by UT chloride CR 8-19 mouth 1 Healt h (K-Tab) 20 00:00: (one) time MEQ ER 00 each day. tablet potassium 2022-0 Yes QD Take by UT chloride CR 8-19 mouth 1 Healt h (K-Tab) 20 00:00: (one) time MEQ ER 00 each day. tablet atorvastati 2022-0 Yes 20mg Take 20 mg UT n (Lipitor) 8-05 by mouth [facility]al [facility] 20 MG 00:00: every tablet 00 night. atorvastati 2022-0 Yes 20mg Take 20 mg UT n (Lipitor) 8-05 by mouth [facility]al [facility] 20 MG 00:00: every tablet 00 night. tamsulosin 2022-0 Yes .4mg Take 0.4 UT (Flomax) 7-07 mg by Health 0.4 MG 24 00:00: mouth hr capsule 00 every night. tamsulosin 2022-0 Yes .4mg Take 0.4 UT (Flomax) 7-07 mg by Health 0.4 MG 24 00:00: mouth hr capsule 00 every night. calcitriol 0 Yes .5ug Q2D Take 0.5 UT (Rocaltrol) 6-22 mcg by Health 0.5 MCG 00:00: mouth capsule 00 every other day. furosemide 2021-0 Yes 80mg QD Take 80 mg U T (Lasix) 80 6-22 by mouth 1 Hea lth MG tablet 00:00: (one) time 00 each day. calcitriol 2021-0 Yes .5ug Q2D Take 0.5 UT (Rocaltrol) 6-22 mcg by Health 0.5 MCG 00:00: mouth capsule 00 every other day. furosemide 2021-0 Yes 80mg QD Take 80 mg U [...] 3 mL, l mL 12:45: Soln, NEB, Once PRN solution for wheezing, first dose 07/23/21 7:45:00 CDT ondansetron No 4 mg = 2 Me moria 5-24 mL, l 12:45: Injection, IV Push, q15min PRN for nausea, order duration: 2 dose(s)/ti me(s), first dose 07/23/21 7:45:00 CDT, stop date Limited # of times LR 1,000 mL 2021-0 No 1,000 mL, M emoria 5-24 IV, 75 l 12:45: mL/hr, start date 07/23/21 7:45:00 CDT, 2.26, m2 promethazin 0 No 12.5 mg = M emoria e 5-24 0.5 mL, l 12:45: Injection, Zen 00 IM, Once PRN for vomiting, first dose 07/23/21 7:45:00 CDT labetalol No 5 mg = 1 Jonathan kayden 5-24 mL, l 12:45: Injection, Zen 00 IV Push, As Indicated PRN for hypertensi on, first dose 07/23/21 7:45:00 CDT, SBP Hold Parameter: less than 110 mmHg, HR Hold Parameter: less than 60 bpm hydrALAZINE No 10 mg = Mem oria 5-24 0.5 mL, l 12:45: Injection, [place] 00 IV Push, As Indicated PRN for hypertensi on, first dose 07/23/21 7:45:00 CDT, SBP Hold Parameter: less than 110 mmHg diphenhydrA 0 No 25 mg = Mem oria MINE 5-24 0.5 mL, l 12:45: Injection, Zen 00 IV Push, Once PRN for itching, first dose 07/23/21 7:45:00 CDT Saline Lock 2021-0 No 10 mL, Jonathan kayden Flush 5-24 Soln, IV l 12:45: Push, As Indicated PRN for flush, first dose 07/23/21 7:45:00 CDT Robinul 0 No 0.2 mg = 1 Jonathan kayden 5-24 mL, l 12:45: Injection, [place] 00 IV Push, Once PRN for bradycardi a, first dose 07/23/21 7:45:00 CDT Xopenex 2021-0 No 0.63 mg = Memor ia 0.63 mg/3 5-24 3 mL, l mL 12:45: Soln, NEB, Zen inhalation 00 Once PRN solution for wheezing, first dose 07/23/21 7:45:00 CDT ondansetron No 4 mg = 2 Me moria 5-24 mL, l 12:45: Injection, [place] 00 IV Push, q15min PRN for nausea, order duration: 2 dose(s)/ti me(s), first dose 07/23/21 7:45:00 CDT, stop date Limited # of times promethazin No 12.5 mg = M emoria e 5-24 0.5 mL, l 12:45: Injection, [place] 00 IM, Once PRN for vomiting, first dose 07/23/21 7:45:00 CDT labetalol No 5 mg = 1 Jonathan kayden 5-24 mL, l 12:45: Injection, [place] 00 IV Push, As Indicated PRN for hypertensi on, first dose 07/23/21 7:45:00 CDT, SBP Hold Parameter: less than 110 mmHg, HR Hold Parameter: less than 60 bpm hydrALAZINE No 10 mg = Mem oria 5-24 0.5 mL, l 12:45: Injection, IV Push, As Indicated PRN for hypertensi on, first dose 07/23/21 7:45:00 CDT, SBP Hold Parameter: less than 110 mmHg diphenhydrA No 25 mg = Mem oria MINE 5-24 0.5 mL, l 12:45: Injection, Zen 00 IV Push, Once PRN for itching, first dose 07/23/21 7:45:00 CDT LR 1,000 mL No 1,000 mL, M emoria 5-24 IV, 75 l 12:45: mL/hr, start date 07/23/21 7:45:00 CDT, 2.26, m2 Saline Lock No 10 mL, Jonathan kayden Flush 5-24 Soln, IV l 12:45: Push, As Indicated PRN for flush, first dose 07/23/21 7:45:00 CDT Robinul No 0.2 mg = 1 Jonathan kayden 5-24 mL, l 12:45: Injection, Zen 00 IV Push, Once PRN for bradycardi a, first dose 07/23/21 7:45:00 CDT Xopenex No 0.63 mg = Memor ia 0.63 mg/3 5-24 3 mL, l mL 12:45: Soln, NEB, Zen inhalation 00 Once PRN solution for wheezing, first dose 07/23/21 7:45:00 CDT ondansetron No 4 mg = 2 Me moria 5-24 mL, l 12:45: Injection, Zen 00 IV Push, q15min PRN for nausea, order duration: 2 dose(s)/ti me(s), first dose 07/23/21 7:45:00 CDT, stop date Limited # of times promethazin No 12.5 mg = M emoria e 5-24 0.5 mL, l 12:45: Injection, Zen 00 IM, Once PRN for vomiting, first dose 07/23/21 7:45:00 CDT labetalol No 5 mg = 1 Jonathan kayden 5-24 mL, l 12:45: Injection, [place] 00 IV Push, As Indicated PRN for hypertensi on, first dose 07/23/21 7:45:00 CDT, SBP Hold Parameter: less than 110 mmHg, HR Hold Parameter: less than 60 bpm hydrALAZINE No 10 mg = Mem oria 5-24 0.5 mL, l 12:45: Injection, [place] 00 IV Push, As Indicated PRN for hypertensi on, first dose 07/23/21 7:45:00 CDT, SBP Hold Parameter: less than 110 mmHg diphenhydrA No 25 mg = Mem oria MINE 5-24 0.5 mL, l 12:45: Injection, [place] 00 IV Push, Once PRN for itching, first dose 07/23/21 7:45:00 CDT Misc 0 No 100 mL, Memoria Medication 5-24 Soln-IV, l 12:37: IV, Once, 00 first dose 07/23/21 7:37:00 CDT, stop date 07/23/21 7:37:00 CDT Misc 0 No 100 mL, Memoria Medication 5-24 Soln-IV, l 12:37: IV, Once, Zen 00 first dose 07/23/21 7:37:00 CDT, stop date 07/23/21 7:37:00 CDT Misc 2-0 No 100 mL, Memoria Medication 5-24 Soln-IV, l 12:37: IV, Once, Zen 00 first dose 07/23/21 7:37:00 CDT, stop date 07/23/21 7:37:00 CDT propofol 2-0 No 40 mg = 4 Jonathan kayden 5-24 mL, l 12:26: Emulsion, Zen 00 IV, Once, first dose 07/23/21 7:26:00 CDT, stop date 07/23/21 7:26:00 CDT lidocaine 2-0 No 20 mg = 1 Mem oria 5-24 mL, l 12:26: Injection, Zen 00 IV, Once, first dose 07/23/21 7:26:00 CDT, stop date 07/23/21 7:26:00 CDT propofol 2-0 No 40 mg = 4 Jonathan kayden 5-24 mL, l 12:26: Emulsion, Zen 00 IV, Once, first dose 07/23/21 7:26:00 CDT, stop date 07/23/21 7:26:00 CDT lidocaine 2-0 No 20 mg = 1 Mem oria 5-24 mL, l 12:26: Injection, Zen 00 IV, Once, first dose 07/23/21 7:26:00 CDT, stop date 07/23/21 7:26:00 CDT propofol 2-0 No 40 mg = 4 Jonathan kayden 5-24 mL, l 12:26: Emulsion, Zen 00 IV, Once, first dose 07/23/21 7:26:00 CDT, stop date 07/23/21 7:26:00 CDT lidocaine 2-0 No 20 mg = 1 Mem oria 5-24 mL, l 12:26: Injection, Zen 00 IV, Once, first dose 07/23/21 7:26:00 CDT, stop date 07/23/21 7:26:00 CDT propofol 2-0 No 80 mg = 8 Jonathan kayden 5-24 mL, l 12:22: Emulsion, Zen 00 IV, Once, first dose 07/23/21 7:22:00 CDT, stop date 07/23/21 7:22:00 CDT lidocaine 2022-0 No 40 mg = 2 Mem oria 5-24 mL, l 12:22: Injection, Zen 00 IV, Once, first dose 07/23/21 7:22:00 CDT, stop date 07/23/21 7:22:00 CDT propofol 2022-0 No 80 mg = 8 Jonathan kayden 5-24 mL, l 12:22: Emulsion, [place] 00 IV, Once, first dose 07/23/21 7:22:00 CDT, stop date 07/23/21 7:22:00 CDT lidocaine 2022-0 No 40 mg = 2 Mem oria 5-24 mL, l 12:22: Injection, [place] 00 IV, Once, first dose 07/23/21 7:22:00 CDT, stop date 07/23/21 7:22:00 CDT propofol 2022-0 No 80 mg = 8 Jonathan kayden 5-24 mL, l 12:22: Emulsion, Zen 00 IV, Once, first dose 07/23/21 7:22:00 CDT, stop date 07/23/21 7:22:00 CDT lidocaine 2-0 No 40 mg = 2 Mem oria 5-24 mL, l 12:22: Injection, Zen 00 IV, Once, first dose 07/23/21 7:22:00 CDT, stop date 07/23/21 7:22:00 CDT midazolam 2-0 No 2 mg = 2 Jonathan kayden 5-24 mL, l 12:21: Injection, [place] 00 IV, Once, first dose 07/23/21 7:21:00 CDT, stop date 07/23/21 7:21:00 CDT ketamine 2022-0 No 25 mg = Memori a 5-24 0.5 mL, l 12:21: Injection, Zen 00 IV, Once, first dose 07/23/21 7:21:00 CDT, stop date 07/23/21 7:21:00 CDT midazolam 2022-0 No 2 mg = 2 Jonathan kayden 5-24 mL, l 12:21: Injection, [place] 00 IV, Once, first dose 07/23/21 7:21:00 CDT, stop date 07/23/21 7:21:00 CDT ketamine 2-0 No 25 mg = Memori a 5-24 0.5 mL, l 12:21: Injection, [place] 00 IV, Once, first dose 07/23/21 7:21:00 CDT, stop date 07/23/21 7:21:00 CDT midazolam 2-0 No 2 mg = 2 Jonathan kaydne 5-24 mL, l 12:21: Injection, [place] 00 IV, Once, first dose 07/23/21 7:21:00 CDT, stop date 07/23/21 7:21:00 CDT ketamine 2-0 No 25 mg = Memori a 5-24 0.5 mL, l 12:21: Injection, Zen 00 IV, Once, first dose 07/23/21 7:21:00 CDT, stop date 07/23/21 7:21:00 CDT LR 1,000 mL 2021-0 No 1,000 mL, M emoria 5-24 IV, 30 l 11:10: mL/hr, Zen start date 07/23/21 6:10:00 CDT, 2.26, m2 Lidocaine 2-0 No 0.2 mL, Memor ia 2% 0.2 mL 5-24 Injection, l IV Start 11:10: Subcutaneo [facility] [[facility]] 00 us, Once PRN for other (see comment), first dose 07/23/21 6:10:00 CDT LR 1,000 mL 2-0 No 1,000 mL, M emoria 5-24 IV, 30 l 11:10: mL/hr, [place] start date 07/23/21 6:10:00 CDT, 2.26, m2 Lidocaine 2-0 No 0.2 mL, Memor ia 2% 0.2 mL 5-24 Injection, l IV Start 11:10: Subcutaneo [facility] 00 us, Once PRN for other (see comment), first dose 07/23/21 6:10:00 CDT LR 1,000 mL 2-0 No 1,000 mL, M emoria 5-24 IV, 30 l 11:10: mL/hr, Zen start date 07/23/21 6:10:00 CDT, 2.26, m2 Lidocaine No 0.2 mL, Memor ia 2% 0.2 mL 5-24 Injection, l IV Start 11:10: Subcutaneo [facility] [[facility]] 00 us, Once PRN for other (see comment), first dose 07/23/21 6:10:00 CDT Potassium Yes TAKE 1 Memori a Chloride 5-23 [...] 5-23 TABLET BY l tablet 18:15: MOUTH [place] 00 EVERY DAY, GOUT docusate Yes 100 mg = 1 Mem oria sodium 100 5-23 caps, l mg oral 18:15: Oral, Zen capsule 00 q6hr, PRN as needed for constipati on, Constipati on atorvastati Yes 20 mg = 1 M emoria n 20 mg 5-23 tabs, l oral tablet 18:15: Oral, Mehreen nn 00 Daily, 0 Refill(s), High Cholestero l omeprazole Yes TAKE 1 Memor ia 20 mg oral 5-23 CAPSULE BY l delayed 18:15: MOUTH Zen release 00 EVERY DAY, capsule GERD Potassium Yes TAKE 1 Memori a Chloride 5-23 [...] 5-23 TABLET BY l tablet 18:15: MOUTH [place] 00 EVERY DAY, GOUT docusate Yes 100 mg = 1 Mem oria sodium 100 5-23 caps, l mg oral 18:15: Oral, [place] capsule 00 q6hr, PRN as needed for constipati on, Constipati on atorvastati Yes 20 mg = 1 M emoria n 20 mg 5-23 tabs, l oral tablet 18:15: Oral, Mehreen nn 00 Daily, 0 Refill(s), High Cholestero l omeprazole Yes TAKE 1 Memor ia 20 mg oral 5-23 CAPSULE BY l delayed 18:15: MOUTH [place] release 00 EVERY DAY, capsule GERD Potassium Yes TAKE 1 Memori a Chloride 5-23 [...] 5-23 caps, l mg oral 18:15: Oral, [place] capsule 00 q6hr, PRN as needed for [...] tabs, l oral tablet 18:14: Oral, BID, Zen 00 0 Refill(s), HTN tamsulosin Yes 0.4 mg = 1 M emoria 0.4 mg oral 5-23 caps, l capsule 18:14: Oral, Zen 00 Daily, 0 Refill(s), BPH hydrALAZINE 2022-0 Yes 25 mg = 1 M emoria 25 mg oral 5-23 tabs, l tablet 18:14: Oral, BID, Mehreen nn 00 0 Refill(s), HTN carvedilol 2022-0 Yes 6.25 mg = Me moria 6.25 mg 5-23 1 tabs, l oral tablet 18:14: Oral, BID, [place] 00 0 Refill(s), HTN tamsulosin 2022-0 Yes 0.4 mg = 1 M emoria 0.4 mg oral 5-23 caps, l capsule 18:14: Oral, [place] 00 Daily, 0 Refill(s), BPH hydrALAZINE 2022-0 Yes 25 mg = 1 M emoria 25 mg oral 5-23 tabs, l tablet 18:14: Oral, BID, Mehreen nn 00 0 Refill(s), HTN carvedilol 2022-0 Yes 6.25 mg = Me moria 6.25 mg 5-23 1 tabs, l oral tablet 18:14: Oral, BID, [place] 00 0 Refill(s), HTN tamsulosin 2022-0 Yes 0.4 mg = 1 M emoria 0.4 mg oral 5-23 caps, l capsule 18:14: Oral, [place] 00 Daily, 0 Refill(s), BPH atorvastati 2022-0 Yes 20 mg = 1 M emoria n 20 mg 5-03 tab, PO, l oral tablet 18:50: Bedtime, # Ezn 00 90 tab, 1 Refill(s), Pharmacy: [facility] cy #[id number], 180.34, cm, 07/02/21 13:31:00 CDT, Height, 109.176, kg, 07/02/21 13:31:00 CDT, Weight atorvastati 2022-0 Yes 20 mg = 1 M emoria n 20 mg 5-03 tab, PO, l oral tablet 18:50: Bedtime, # [place] 00 90 tab, 1 Refill(s), Pharmacy: [facility] cy #[id number], 180.34, cm, 07/02/21 13:31:00 CDT, Height, 109.176, kg, 07/02/21 13:31:00 CDT, Weight omeprazole 2022-0 2022- No 20mg QD Take 20 mg [facility] (P[facility]) 3-25 03-[address] 20 MG 13:43: 00:00 daily. Hospita capsule 56 :00 l omeprazole 2022-0 2022- No 20mg QD Take 20 mg [facility] (PriLOSEC) 3-25 03-[address] 20 MG 13:43: 00:00 daily. Hospita capsule 56 :00 l omeprazole 2022-0 2022- No 20mg QD Take 20 mg [facility] (PriLOSEC) 3-25 03-[address] 20 MG 13:43: 00:00 daily. Hospita capsule 56 :00 l omeprazole 2022-0 2022- No 20mg QD Take 20 mg [facility] (PriLOSEC) 3-25 03-[address] 20 MG 13:43: 00:00 daily. Hospita capsule 56 :00 l omeprazole 2022-0 2022- No 20mg QD Take 20 mg [facility] (PriLOSEC) 3-25 03-[address] 20 MG 13:43: 00:00 daily. Hospita capsule 56 :00 l omeprazole 2022-0 2022- No 20mg QD Take 20 mg [facility] (PriLOSEC) 3-25 03-[address] 20 MG 13:43: 00:00 daily. Hospita capsule 56 :00 l omeprazole 2022-0 2022- No 20mg QD Take 20 mg [facility] (PriLOSEC) 3-25 03-[address] 20 MG 13:43: 00:00 daily. Hospita capsule 56 :00 l omeprazole 2022-0 2022- No 20mg QD Take 20 mg [facility] (PriLOSEC) 3-25 03-[address] 20 MG 13:43: 00:00 daily. Hospita capsule 56 :00 l omeprazole 2022-0 2022- No 20mg QD Take 20 mg [facility] (PriLOSEC) 3-25 03-[address] 20 MG 13:43: 00:00 daily. Hospita capsule 56 :00 l omeprazole 2022-0 2022- No 20mg QD Take 20 mg [facility] (PriLOSEC) 3-25 03-[address] 20 MG 13:43: 00:00 daily. Hospita capsule 56 :00 l magnesium 2021-0 Yes 400mg QD Take 400 [...] capsule times a day. acetaminoph 2021-0 Yes [id number] 1{tbl} Q6H Take 1 M ethodi en-codeine 3-[address] (TYLENOL 13:43: mouth Hospita WITH 52 every 6 l CODEINE #3) (six) 300-30 mg hours as per tablet needed for moderate pain .acute pain. albuterol 2021-0 Yes 2{puff} Inhale 2 M ethodi (PROAIR 3-[address] HFA) 90 13:43: needed for Hosp live mcg/actuati 52 wheezing l on inhaler or shortness of breath. sodium 2021-0 Yes 650mg QD Take 650 [facility] i bicarbonate 3-[address] 650 mg 13:43: mouth Hospita tablet 52 daily. l furosemide 2021-0 Yes 40mg QD Take 40 mg M ethodi (LASIX) 40 3-[address] mg tablet 13:43: every Hospita 52 morning. l allopurinoL 2021-0 Yes 100mg QD Take 100 M ethodi (ZYLOPRIM) 3-[address] 300 MG 13:43: mouth Hospita tablet 52 daily. l aspirin 2-0 Yes 81mg QD Take 81 mg Meth sarah (ECOTRIN) 3-[address] 81 MG 13:43: daily. Hospita enteric 52 l coated tablet calcitrioL 2021-0 Yes .25ug Q2D Take 0.25 M ethodi (ROCALTROL) 3-[address] 0.25 MCG 13:43: mouth Hospita capsule 52 every l other day. carvediloL 2021-0 Yes 12.5mg Q.5D Take 12.5 [facility] (COREG) 3-[address] 12.5 MG 13:43: mouth 2 Hospita tablet 52 (two) l times a day with meals. ergocalcife 2021-0 Yes [id number] Q30D Take Meth sarah rol 3-25 50,000 st (VITAMIN 13:43: Units by Hospi ta D2) 50,000 52 mouth l unit every 30 capsule (thirty) days. 15 of every month hydrALAZINE 0 Yes 10mg Q.5D Take 10 mg [facility] (APRESOLINE 3-[address] ) 10 MG 13:43: (two) Hospita tablet 52 times a l day. magnesium 0 Yes 400mg QD Take 400 Met hodi oxide 3-[address] (MAG-OX) 13:43: mouth Hospita 400 mg 52 every l (241.3 mg morning. magnesium) tablet albuterol 0 Yes 2.5mg Q.5D Take 2.5 Met hodi [...] capsule times a day. acetaminoph 2021-0 Yes [id number] 1{tbl} Q6H Take 1 M ethodi en-codeine 3-[address] (TYLENOL 13:43: mouth Hospita WITH 52 every 6 l CODEINE #3) (six) 300-30 mg hours as per tablet needed for moderate pain .acute pain. albuterol 2021-0 Yes 2{puff} Inhale 2 M ethodi (PROAIR 3-[address] HFA) 90 13:43: needed for Hosp live mcg/actuati 52 wheezing l on inhaler or shortness of breath. sodium 2021-0 Yes 650mg QD Take 650 [facility] i bicarbonate 3-[address] 650 mg 13:43: mouth Hospita tablet 52 daily. l furosemide 2021-0 Yes 40mg QD Take 40 mg M ethodi (LASIX) 40 3-[address] mg tablet 13:43: every Hospita 52 morning. l allopurinoL 2021-0 Yes 100mg QD Take 100 M ethodi (ZYLOPRIM) 3-[address] 300 MG 13:43: mouth Hospita tablet 52 daily. l aspirin 2021-0 Yes 81mg QD Take 81 mg Meth sarah (ECOTRIN) 3-[address] 81 MG 13:43: daily. Hospita enteric 52 l coated tablet calcitrioL 2021-0 Yes .25ug Q2D Take 0.25 M ethodi (ROCALTROL) 3-[address] 0.25 MCG 13:43: mouth Hospita capsule 52 every l other day. carvediloL 2021-0 Yes 12.5mg Q.5D Take 12.5 [facility] (COREG) 3-[address] 12.5 MG 13:43: mouth 2 Hospita tablet 52 (two) l times a day with meals. ergocalcife 2021-0 Yes [id number] Q30D Take Meth sarah rol 3-25 50,000 st (VITAMIN 13:43: Units by Hospi ta D2) 50,000 52 mouth l unit every 30 capsule (thirty) days. 15 of every month hydrALAZINE 2021-0 Yes 10mg [...] for wheezing or shortness of breath. docusate 2022-0 Yes 100mg Q.5D Take 100 Meth sarah sodium 3-[address] (COLACE) 13:43: mouth 2 Hospit a 100 MG 52 (two) l capsule times a day. acetaminoph 0 Yes [id number] 1{tbl} Q6H Take 1 M ethodi en-codeine 3-[address] (TYLENOL 13:43: mouth Hospita WITH 52 every 6 l CODEINE #3) (six) 300-30 mg hours as per tablet needed for moderate pain .acute pain. albuterol 0 Yes 2{puff} Inhale 2 M ethodi (PROAIR 3-[address] HFA) 90 13:43: needed for Hosp live mcg/actuati 52 wheezing l on inhaler or shortness of breath. sodium 0 Yes 650mg QD Take 650 [facility] i bicarbonate 3-[address] 650 mg 13:43: mouth Hospita tablet 52 daily. l furosemide 0 Yes 40mg QD Take 40 mg M ethodi (LASIX) 40 3-[address] mg tablet 13:43: every Hospita 52 morning. l allopurinoL 0 Yes 100mg QD Take 100 M ethodi (ZYLOPRIM) 3-[address] 300 MG 13:43: mouth Hospita tablet 52 daily. l aspirin 0 Yes 81mg QD Take 81 mg Meth sarah (ECOTRIN) 3-[address] 81 MG 13:43: daily. Hospita enteric 52 l coated tablet calcitrioL 0 Yes .25ug Q2D Take 0.25 M ethodi (ROCALTROL) 3-[address] 0.25 MCG 13:43: mouth Hospita capsule 52 every l other day. carvediloL 0 Yes 12.5mg Q.5D Take 12.5 [facility] (COREG) 3-[address] 12.5 MG 13:43: mouth 2 Hospita tablet 52 (two) l times a day with meals. ergocalcife 0 Yes [id number] Q30D Take Meth sarah rol 3-25 50,000 st (VITAMIN 13:43: Units by Hospi ta D2) 50,000 52 mouth l unit every 30 capsule (thirty) days. of every month hydrALAZINE 2022-0 Yes 10mg Q.5D Take 10 mg [facility] (APRESOLINE 3-[address] ) 10 MG 13:43: (two) Hospita tablet 52 times a l day. magnesium 2022-0 Yes 400mg QD Take 400 Met hodi [...] capsule times a day. acetaminoph 2021-0 Yes [id number] 1{tbl} Q6H Take 1 M ethodi en-codeine 3-[address] (TYLENOL 13:43: mouth Hospita WITH 52 every 6 l CODEINE #3) (six) 300-30 mg hours as per tablet needed for moderate pain .acute pain. albuterol 2021-0 Yes 2{puff} Inhale 2 M ethodi (PROAIR 3-[address] HFA) 90 13:43: needed for Hosp live mcg/actuati 52 wheezing l on inhaler or shortness of breath. sodium 2021-0 Yes 650mg QD Take 650 [facility] i bicarbonate 3-[address] 650 mg 13:43: mouth Hospita tablet 52 daily. l furosemide 2022-0 Yes 40mg QD Take 40 mg M ethodi (LASIX) 40 3-[address] mg tablet 13:43: every [facility]ospita 52 morning. l allopurinoL 2022-0 Yes 100mg QD Take 100 M [facility]i (ZYLOPRIM) 3-[address] 300 MG 13:43: mouth [facility]osp[facility] tablet 52 daily. l aspirin 2022-0 Yes 81mg QD Take 81 mg Meth sarah (ECOTRIN) 3-[address] 81 MG 13:43: daily. [facility]ospita enteric 52 l coated tablet calcitrioL 0 Yes .25ug Q2D Take 0.25 M [facility]i (ROCALTROL) 3-[address] 0.25 MCG 13:43: mouth [facility]osp[facility] capsule 52 every l other day. carvediloL 2021-0 Yes 12.5mg Q.5D Take 12.5 [facility] (COREG) 3-[address] 12.5 MG 13:43: mouth 2 Hospita tablet 52 (two) l times a day with meals. ergocalcife 2021-0 Yes [id number] Q30D Take Meth sarah rol 3-[address] 50,[address] (VITAMIN 13:43: Units by Hospi ta D2) 50,000 52 mouth l unit every 30 capsule (thirty) days. of every hydrALAZINE 2021-0 Yes 10mg Q.5D Take 10 mg [facility] (APRESOLINE 3-[address] ) 10 MG 13:43: (two) Hospita tablet 52 times a l day. magnesium 2021-0 Yes 400mg QD Take 400 Met hodi oxide 3-[address] (MAG-OX) 13:43: mouth [facility]osp[facility] 400 mg 52 every l (241.3 mg morning. magnesium) tablet albuterol 0 Yes 2.5mg Q.5D Take 2.5 Met hodi [...] capsule times a day. acetaminoph 2021-0 Yes [id number] 1{tbl} Q6H Take 1 M [facility]i en-codeine 3-[address] (TYLENOL 13:43: mouth [facility]osp[facility] WITH 52 every 6 l CODEINE #3) (six) 300-30 mg hours as per tablet needed for moderate pain .acute pain. albuterol 2021-0 Yes 2{puff} Inhale 2 M [facility] (PROAIR 3-[address] HFA) 90 13:43: needed for Hosp live mcg/actuati 52 wheezing l on inhaler or shortness of breath. sodium 2021-0 Yes 650mg QD Take 650 [facility] i bicarbonate 3-[address] 650 mg 13:43: mouth [facility]osp[facility] tablet 52 daily. l furosemide 2021-0 Yes 40mg QD Take 40 mg [facility] (LASIX) 40 3-[address] mg tablet 13:43: every [facility] 52 morning. l allopurinoL 2021-0 Yes 100mg QD Take 100 [facility] (ZYLOPRIM) 3-[address] 300 MG 13:43: mouth [facility] tablet 52 daily. l aspirin 2021-0 Yes 81mg QD Take 81 mg [facility] (ECOTRIN) 3-[address] 81 MG 13:43: daily. [facility] enteric 52 l coated tablet calcitrioL 2021-0 Yes .25ug Q2D Take 0.25 [facility] (ROCALTROL) 3-[address] 0.25 MCG 13:43: mouth [facility] capsule 52 every l other day. carvediloL 2021-0 Yes 12.5mg Q.5D Take 12.5 [facility] (COREG) 3-[address] 12.5 MG 13:43: mouth 2 [facility] tablet 52 (two) l times a day with meals. ergocalcife 2021-0 Yes [id number] Q30D Take [facility] rol 3-25 50,000 [facility] (VITAMIN 13:43: Units by [facility] ta D2) 50,000 52 mouth l unit every 30 capsule (thirty) days. of every hydrALAZINE 2021-0 Yes 10mg Q.5D Take 10 [...] capsule times a day. acetaminoph 2021-0 Yes [id number] 1{tbl} Q6H Take 1 [facility] en-codeine 3-[address] (TYLENOL 13:43: mouth [facility] WITH 52 every 6 l CODEINE #3) (six) 300-30 mg hours as per tablet needed for moderate pain .acute pain. albuterol 2021-0 Yes 2{puff} Inhale 2 [facility] (PROAIR 3-[address] HFA) 90 13:43: needed for [facility]osp live mcg/actuati 52 wheezing l on inhaler or shortness of breath. sodium 2021-0 Yes 650mg QD Take 650 [facility] bicarbonate 3-[address] 650 mg 13:43: mouth [facility] tablet 52 daily. l furosemide 2021-0 Yes 40mg QD Take 40 mg [facility] (LASIX) 40 3-[address] mg tablet 13:43: every [facility] 52 morning. l allopurinoL 2021-0 Yes 100mg QD Take 100 [facility] (ZYLOPRIM) 3-[address] 300 MG 13:43: mouth [facility] tablet 52 daily. l aspirin 2021-0 Yes 81mg QD Take 81 mg [facility] (ECOTRIN) 3-[address] 81 MG 13:43: daily. [facility] enteric 52 l coated tablet calcitrioL 2021-0 Yes .25ug Q2D Take 0.25 [facility] (ROCALTROL) 3-[address] 0.25 MCG 13:43: mouth [facility] capsule 52 every l other day. carvediloL 2021-0 Yes 12.5mg Q.5D Take 12.5 [facility] (COREG) 3-[address] 12.5 MG 13:43: mouth 2 [facility] tablet 52 (two) l times a day with meals. ergocalcife 202-0 Yes [id number] Q30D Take [facility] rol 3-25 50,000 [address] (VITAMIN 13:43: Units by [facility] ta D2) 50,000 52 mouth l unit every 30 capsule (thirty) days. 15 of every month hydrALAZINE 2021-0 Yes 10mg Q.5D Take 10 mg [facility] (APRESOLINE 3-[address] ) 10 MG 13:43: (two) [facility]osp[facility] tablet 52 times a l day. magnesium 2022-0 Yes 400mg QD Take 400 Met hodi [...] capsule times a day. acetaminoph 2021-0 Yes [id number] 1{tbl} Q6H Take 1 [facility] en-codeine 3-[address] (TYLENOL 13:43: mouth [facility] WITH 52 every 6 l CODEINE #3) (six) 300-30 mg hours as per tablet needed for moderate pain .acute pain. albuterol 2021-0 Yes 2{puff} Inhale 2 [facility] (PROAIR 3-[address] HFA) 90 13:43: needed for [facility]osp live mcg/actuati 52 wheezing l on inhaler or shortness of breath. sodium 2021-0 Yes 650mg QD Take 650 [facility] bicarbonate 3-[address] 650 mg 13:43: mouth [facility] tablet 52 daily. l furosemide 2-0 Yes 40mg QD Take 40 mg [facility] (LASIX) 40 3-[address] mg tablet 13:43: every [facility] 52 morning. l allopurinoL 2022-0 Yes 100mg QD Take 100 [facility] (ZYLOPRIM) 3-[address] 300 MG 13:43: mouth [facility] tablet 52 daily. l aspirin 2022-0 Yes 81mg QD Take 81 mg [facility] (ECOTRIN) 3-[address] 81 MG 13:43: daily. [facility] enteric 52 l coated tablet calcitrioL 2021-0 Yes .25ug Q2D Take 0.25 [facility] (ROCALTROL) 3-[address] 0.25 MCG 13:43: mouth [facility] capsule 52 every l other day. carvediloL 2021-0 Yes 12.5mg Q.5D Take 12.5 [facility] (COREG) 3-[address] 12.5 MG 13:43: mouth 2 [facility] tablet 52 (two) l times a day with meals. ergocalcife 2021-0 Yes [id number] Q30D Take [facility] rol 3-25 50,000 [address] (VITAMIN 13:43: Units by [facility] ta D2) 50,000 52 mouth l unit every 30 capsule (thirty) days. 15 of every month hydrALAZINE 2021-0 Yes 10mg Q.5D Take 10 mg [facility] (APRESOLINE 3-[address] ) 10 MG 13:43: (two) [facility]osp[facility] tablet 52 times a l day. magnesium 0 Yes 400mg QD Take 400 [facility] oxide 3-[address] (MAG-OX) 13:43: mouth [facility] 400 mg 52 every l (241.3 mg morning. magnesium) tablet albuterol 0 Yes 2.5mg Q.5D Take 2.5 Met hodi [...] capsule times a day. acetaminoph 2021-0 Yes [id number] 1{tbl} Q6H Take 1 [facility] en-codeine 3-[address] (TYLENOL 13:43: mouth [facility] WITH 52 every 6 l CODEINE #3) (six) 300-30 mg hours as per tablet needed for moderate pain .acute pain. albuterol 2022-0 Yes 2{puff} Inhale 2 [facility] (PROAIR 3-[address] HFA) 90 13:43: needed for [facility]osp live mcg/actuati 52 wheezing l on inhaler or shortness of breath. sodium 2021-0 Yes 650mg QD Take 650 [facility] bicarbonate 3-[address] 650 mg 13:43: mouth [facility] tablet 52 daily. l furosemide 2021-0 Yes 40mg QD Take 40 mg [facility] (LASIX) 40 3-[address] mg tablet 13:43: every [facility] 52 morning. l allopurinoL 0 Yes 100mg QD Take 100 [facility] (ZYLOPRIM) 3-[address] 300 MG 13:43: mouth [facility] tablet 52 daily. l aspirin 0 Yes 81mg QD Take 81 mg [facility] (ECOTRIN) 3-[address] 81 MG 13:43: daily. [facility] enteric 52 l coated tablet calcitrioL 0 Yes .25ug Q2D Take 0.25 [facility] (ROCALTROL) 3-[address] 0.25 MCG 13:43: mouth [facility] capsule 52 every l other day. carvediloL 2021-0 Yes 12.5mg Q.5D Take 12.5 [facility] (COREG) 3-[address] 12.5 MG 13:43: mouth 2 [facility] tablet 52 (two) l times a day with meals. ergocalcife 0 Yes [id number] Q30D Take [facility] rol 3-25 50,000 [...] capsule times a day. acetaminoph 2021-0 Yes [id number] 1{tbl} Q6H Take 1 [facility] en-codeine 3-[address] (TYLENOL 13:43: mouth [facility] WITH 52 every 6 l CODEINE #3) (six) 300-30 mg hours as per tablet needed for moderate pain .acute pain. albuterol 2021-0 Yes 2{puff} Inhale 2 [facility] (PROAIR 3-[address] HFA) 90 13:43: needed for [facility]osp live mcg/actuati 52 wheezing l on inhaler or shortness of breath. sodium 2021-0 Yes 650mg QD Take 650 [facility] bicarbonate 3-[address] 650 mg 13:43: mouth [facility] tablet 52 daily. l furosemide 2021-0 Yes 40mg QD Take 40 mg [facility] (LASIX) 40 3-[address] mg tablet 13:43: every [facility] 52 morning. l allopurinoL 2021-0 Yes 100mg QD Take 100 [facility] (ZYLOPRIM) 3-[address] 300 MG 13:43: mouth [facility] tablet 52 daily. l aspirin 2021-0 Yes 81mg QD Take 81 mg [facility] (ECOTRIN) 3-[address] 81 MG 13:43: daily. [facility] enteric 52 l coated tablet calcitrioL 2021-0 Yes .25ug Q2D Take 0.25 [facility] (ROCALTROL) 3-[address] 0.25 MCG 13:43: mouth [facility] capsule 52 every l other day. carvediloL 2021-0 Yes 12.5mg Q.5D Take 12.5 [facility] (COREG) 3-[address] 12.5 MG 13:43: mouth 2 [facility] tablet 52 (two) l times a day with meals. ergocalcife 2021-0 Yes [id number] Q30D Take [facility] rol 3-25 50,000 [facility] (VITAMIN 13:43: Units by [facility] ta D2) 50,000 52 mouth l unit every 30 capsule (thirty) days. 15 of every month hydrALAZINE 2021-0 Yes 10mg [...] capsule times a day. acetaminoph 2021-0 Yes [id number] 1{tbl} Q6H Take 1 [facility] en-codeine 3-[address] (TYLENOL 13:43: mouth [facility] WITH 52 every 6 l CODEINE #3) (six) 300-30 mg hours as per tablet needed for moderate pain .acute pain. albuterol 2021-0 Yes 2{puff} Inhale 2 [facility] (PROAIR 3-[address] HFA) 90 13:43: needed for [facility]osp live mcg/actuati 52 wheezing l on inhaler or shortness of breath. sodium 2021-0 Yes 650mg QD Take 650 [facility] bicarbonate 3-[address] 650 mg 13:43: mouth [facility] tablet 52 daily. l furosemide 2-0 Yes 40mg QD Take 40 mg [facility] (LASIX) 40 3-[address] mg tablet 13:43: every [facility] 52 morning. l allopurinoL 2022-0 Yes 100mg QD Take 100 [facility] (ZYLOPRIM) 3-[address] 300 MG 13:43: mouth [facility] tablet 52 daily. l aspirin 2021-0 Yes 81mg QD Take 81 mg [facility] (ECOTRIN) 3-[address] 81 MG 13:43: daily. [facility] enteric 52 l coated tablet calcitrioL 2021-0 Yes .25ug Q2D Take 0.25 [facility] (ROCALTROL) 3-[address] 0.25 MCG 13:43: mouth [facility] capsule 52 every l other day. carvediloL 2021-0 Yes 12.5mg Q.5D Take 12.5 [facility] (COREG) 3-[address] 12.5 MG 13:43: mouth 2 [facility] tablet 52 (two) l times a day with meals. ergocalcife 2021-0 Yes [id number] Q30D Take [facility] rol 3-25 50,000 [facility] (VITAMIN 13:43: Units by [facility] ta D2) 50,000 52 mouth l unit every 30 capsule (thirty) days. of every hydrALAZINE 2021-0 Yes 10mg Q.5D Take 10 [...] capsule times a day. acetaminoph 2021-0 Yes [id number] 1{tbl} Q6H Take 1 [facility] en-codeine 3-[address] (TYLENOL 13:43: mouth [facility] WITH 52 every 6 l CODEINE #3) (six) 300-30 mg hours as per tablet needed for moderate pain .acute pain. albuterol 0 Yes 2{puff} Inhale 2 [facility] (PROAIR 3-[address] HFA) 90 13:43: needed for [facility]osp live mcg/actuati 52 wheezing l on inhaler or shortness of breath. sodium 2021-0 Yes 650mg QD Take 650 [facility] bicarbonate 3-[address] 650 mg 13:43: mouth [facility] tablet 52 daily. l furosemide 2021-0 Yes 40mg QD Take 40 mg [facility] (LASIX) 40 3-[address] mg tablet 13:43: every [facility] 52 morning. l allopurinoL 2021-0 Yes 100mg QD Take 100 [facility] (ZYLOPRIM) 3-[address] 300 MG 13:43: mouth [facility] tablet 52 daily. l aspirin 2021-0 Yes 81mg QD Take 81 mg [facility] (ECOTRIN) 3-[address] 81 MG 13:43: daily. [facility] enteric 52 l coated tablet calcitrioL 0 Yes .25ug Q2D Take 0.25 [facility] (ROCALTROL) 3-[address] 0.25 MCG 13:43: mouth [facility] capsule 52 every l other day. carvediloL 0 Yes 12.5mg Q.5D Take 12.5 [facility] (COREG) 3-[address] 12.5 MG 13:43: mouth 2 [facility] tablet 52 (two) l times a day with meals. ergocalcife 0 Yes [id number] Q30D Take [facility] rol 3-25 50,000 [facility] (VITAMIN 13:43: Units by [facility] ta D2) 50,000 52 mouth l unit every 30 capsule (thirty) days. 15 of every month hydrALAZINE 2021-0 Yes 10mg [...] capsule times a day. acetaminoph 2021-0 Yes [id number] 1{tbl} Q6H Take 1 [facility] en-codeine 3-[address] (TYLENOL 13:43: mouth [facility] WITH 52 every 6 l CODEINE #3) (six) 300-30 mg hours as per tablet needed for moderate pain .acute pain. albuterol 2021-0 Yes 2{puff} Inhale 2 [facility] (PROAIR 3-[address] HFA) 90 13:43: needed for [facility]osp live mcg/actuati 52 wheezing l on inhaler or shortness of breath. sodium 2021-0 Yes 650mg QD Take 650 [facility] bicarbonate 3-[address] 650 mg 13:43: mouth [facility] tablet 52 daily. l furosemide 2021-0 Yes 40mg QD Take 40 mg [facility] (LASIX) 40 3-[address] mg tablet 13:43: every [facility] 52 morning. l allopurinoL 2021-0 Yes 100mg QD Take 100 [facility] (ZYLOPRIM) 3-[address] 300 MG 13:43: mouth [facility] tablet 52 daily. l aspirin 2-0 Yes 81mg QD Take 81 mg [facility] (ECOTRIN) 3-[address] 81 MG 13:43: daily. [facility] enteric 52 l coated tablet calcitrioL 2021-0 Yes .25ug Q2D Take 0.25 [facility] (ROCALTROL) 3-[address] 0.25 MCG 13:43: mouth [facility] capsule 52 every l other day. carvediloL 2-0 Yes 12.5mg Q.5D Take 12.5 [facility] (COREG) 3-[address] 12.5 MG 13:43: mouth 2 [facility] tablet 52 (two) l times a day with meals. ergocalcife 2022-0 Yes [id number] Q30D Take [facility] 3-25 50,000 [facility] (VITAMIN 13:43: Units by [facility] ta D2) 50,000 52 mouth l unit every 30 capsule (thirty) days. 15 of every month hydrALAZINE 2022-0 Yes 10mg Q.5D Take 10 mg [facility] (APRESOLINE 3-[address] ) 10 MG 13:43: (two) [facility]osp[facility] tablet 52 times a l day. magnesium 2022-0 Yes 400mg QD Take 400 Met hodi [...] capsule times a day. acetaminoph 2021-0 Yes [id number] 1{tbl} Q6H Take 1 [facility] en-codeine 3-[address] (TYLENOL 13:43: mouth [facility] WITH 52 every 6 l CODEINE #3) (six) 300-30 mg hours as per tablet needed for moderate pain .acute pain. albuterol 2021-0 Yes 2{puff} Inhale 2 [facility] (PROAIR 3-[address] HFA) 90 13:43: needed for [facility]osp live mcg/actuati 52 wheezing l on inhaler or shortness of breath. sodium 2022-0 Yes 650mg QD Take 650 [facility] bicarbonate 3-[address] 650 mg 13:43: mouth [facility] tablet 52 daily. l furosemide 2022-0 Yes 40mg QD Take 40 mg [facility] (LASIX) 40 3-[address] mg tablet 13:43: every [facility] 52 morning. l allopurinoL 2022-0 Yes 100mg QD Take 100 [facility] (ZYLOPRIM) 3-[address] 300 MG 13:43: mouth [facility] tablet 52 daily. l aspirin 2021-0 Yes 81mg QD Take 81 mg [facility] (ECOTRIN) 3-[address] 81 MG 13:43: daily. [facility] enteric 52 l coated tablet calcitrioL 2021-0 Yes .25ug Q2D Take 0.25 [facility] (ROCALTROL) 3-[address] 0.25 MCG 13:43: mouth [facility] capsule 52 every l other day. carvediloL 2021-0 Yes 12.5mg Q.5D Take 12.5 [facility] (COREG) 3-[address] 12.5 MG 13:43: mouth 2 [facility] tablet 52 (two) l times a day with meals. ergocalcife 0 Yes [id number] Q30D Take [facility] rol 3-25 50,000 [facility] (VITAMIN 13:43: Units by [facility] ta D2) 50,000 52 mouth l unit every 30 capsule (thirty) days. of every month hydrALAZINE 2021-0 Yes 10mg Q.5D Take 10 mg [facility] (APRESOLINE 3-[address] ) 10 MG 13:43: (two) [facility]osp[facility] tablet 52 times a l day. magnesium 0 Yes 400mg QD Take 400 [facility] oxide 3-[address] (MAG-OX) 13:43: mouth [facility] 400 mg 52 every l (241.3 mg morning. magnesium) tablet albuterol 0 Yes 2.5mg Q.5D Take 2.5 Met hodi [...] capsule times a day. acetaminoph 2021-0 Yes [id number] 1{tbl} Q6H Take 1 [facility] en-codeine 3-[address] (TYLENOL 13:43: mouth [facility] WITH 52 every 6 l CODEINE #3) (six) 300-30 mg hours as per tablet needed for moderate pain .acute pain. albuterol 0 Yes 2{puff} Inhale 2 [facility] (PROAIR 3-[address] HFA) 90 13:43: needed for [facility]osp live mcg/actuati 52 wheezing l on inhaler or shortness of breath. sodium 2021-0 Yes 650mg QD Take 650 [facility] bicarbonate 3-[address] 650 mg 13:43: mouth [facility] tablet 52 daily. l furosemide 2021-0 Yes 40mg QD Take 40 mg [facility] (LASIX) 40 3-[address] mg tablet 13:43: every [facility] 52 morning. l allopurinoL 2021-0 Yes 100mg QD Take 100 [facility] (ZYLOPRIM) 3-[address] 300 MG 13:43: mouth [facility] tablet 52 daily. l aspirin 2021-0 Yes 81mg QD Take 81 mg [facility] (ECOTRIN) 3-[address] 81 MG 13:43: daily. [facility] enteric 52 l coated tablet calcitrioL 2021-0 Yes .25ug Q2D Take 0.25 [facility] (ROCALTROL) 3-[address] 0.25 MCG 13:43: mouth [facility] capsule 52 every l other day. carvediloL 2021-0 Yes 12.5mg Q.5D Take 12.5 [facility] (COREG) 3-[address] 12.5 MG 13:43: mouth 2 [facility] tablet 52 (two) l times a day with meals. ergocalcife 2021-0 Yes [id number] Q30D Take [facility] 3-25 50,[address] (VITAMIN 13:43: Units by [facility] ta D2) 50,000 52 mouth l unit every 30 capsule (thirty) days. 15 of every month hydrALAZINE 2021-0 Yes 10mg Q.5D Take 10 mg [facility] (APRESOLINE 3-[address] ) 10 MG 13:43: (two) [facility]osp[facility] tablet 52 times a l day. magnesium 2021-0 Yes 400mg QD Take 400 [facility] oxide 3-[address] (MAG-OX) 13:43: mouth [facility] 400 mg 52 every l (241.3 mg morning. magnesium) tablet albuterol 0 Yes 2.5mg Q.5D Take 2.5 Met hodi [...] capsule times a day. acetaminoph 2021-0 Yes [id number] 1{tbl} Q6H Take 1 [facility] en-codeine 3-[address] (TYLENOL 13:43: mouth [facility] WITH 52 every 6 l CODEINE #3) (six) 300-30 mg hours as per tablet needed for moderate pain .acute pain. albuterol 0 Yes 2{puff} Inhale 2 [facility] (PROAIR 3-[address] HFA) 90 13:43: needed for [facility]osp live mcg/actuati 52 wheezing l on inhaler or shortness of breath. sodium 0 Yes 650mg QD Take 650 [facility] bicarbonate 3-[address] 650 mg 13:43: mouth [facility] tablet 52 daily. l furosemide 0 Yes 40mg QD Take 40 mg [facility] (LASIX) 40 3-[address] mg tablet 13:43: every [facility] 52 morning. l allopurinoL 0 Yes 100mg QD Take 100 [facility] (ZYLOPRIM) 3-[address] 300 MG 13:43: mouth [facility] tablet 52 daily. l aspirin 2021-0 Yes 81mg QD Take 81 mg [facility] (ECOTRIN) 3-[address] 81 MG 13:43: daily. [facility] enteric 52 l coated tablet calcitrioL 2021-0 Yes .25ug Q2D Take 0.25 [facility] (ROCALTROL) 3-[address] 0.25 MCG 13:43: mouth [facility] capsule 52 every l other day. carvediloL 2021-0 Yes 12.5mg Q.5D Take 12.5 [facility] (COREG) 3-[address] 12.5 MG 13:43: mouth 2 [facility] tablet 52 (two) l times a day with meals. ergocalcife 2021-0 Yes [id number] Q30D Take [facility] 3-25 50,000 [facility] (VITAMIN 13:43: Units by [facility] ta D2) 50,000 52 mouth l unit every 30 capsule (thirty) days. 15 of every month hydrALAZINE 2021-0 Yes 10mg [...] capsule times a day. acetaminoph 2021-0 Yes [id number] 1{tbl} Q6H Take 1 [facility] en-codeine 3-[address] (TYLENOL 13:43: mouth [facility] WITH 52 every 6 l CODEINE #3) (six) 300-30 mg hours as per tablet needed for moderate pain .acute pain. albuterol 2021-0 Yes 2{puff} Inhale 2 [facility] (PROAIR 3-[address] HFA) 90 13:43: needed for [facility]osp live mcg/actuati 52 wheezing l on inhaler or shortness of breath. sodium 2021-0 Yes 650mg QD Take 650 [facility] bicarbonate 3-[address] 650 mg 13:43: mouth [facility] tablet 52 daily. l furosemide 2021-0 Yes 40mg QD Take 40 mg [facility] (LASIX) 40 3-[address] mg tablet 13:43: every [facility] 52 morning. l allopurinoL 2021-0 Yes 100mg QD Take 100 [facility] (ZYLOPRIM) 3-[address] 300 MG 13:43: mouth [facility] tablet 52 daily. l aspirin 2021-0 Yes 81mg QD Take 81 mg [facility] (ECOTRIN) 3-[address] 81 MG 13:43: daily. [facility] enteric 52 l coated tablet calcitrioL 2021-0 Yes .25ug Q2D Take 0.25 [facility] (ROCALTROL) 3-[address] 0.25 MCG 13:43: mouth [facility] capsule 52 every l other day. carvediloL 2021-0 Yes 12.5mg Q.5D Take 12.5 [facility] (COREG) 3-[address] 12.5 MG 13:43: mouth 2 [facility] tablet 52 (two) l times a day with meals. ergocalcife 2021-0 Yes [id number] Q30D Take [facility] 3-25 50,000 [facility] (VITAMIN 13:43: Units by [facility] ta D2) 50,000 52 mouth l unit every 30 capsule (thirty) days. 15 of every month hydrALAZINE 2021-0 Yes 10mg [...] capsule times a day. acetaminoph 2021-0 Yes [id number] 1{tbl} Q6H Take 1 [facility] en-codeine 3-[address] (TYLENOL 13:43: mouth [facility] WITH 52 every 6 l CODEINE #3) (six) 300-30 mg hours as per tablet needed for moderate pain .acute pain. albuterol 0 Yes 2{puff} Inhale 2 [facility] (PROAIR 3-[address] HFA) 90 13:43: needed for [facility]osp live mcg/actuati 52 wheezing l on inhaler or shortness of breath. sodium 0 Yes 650mg QD Take 650 [facility] bicarbonate 3-[address] 650 mg 13:43: mouth [facility] tablet 52 daily. l furosemide 0 Yes 40mg QD Take 40 mg [facility] (LASIX) 40 3-[address] mg tablet 13:43: every [facility] 52 morning. l allopurinoL 0 Yes 100mg QD Take 100 [facility] (ZYLOPRIM) 3-[address] 300 MG 13:43: mouth [facility] tablet 52 daily. l aspirin 0 Yes 81mg QD Take 81 mg [facility] (ECOTRIN) 3-[address] 81 MG 13:43: daily. [facility] enteric 52 l coated tablet calcitrioL 0 Yes .25ug Q2D Take 0.25 [facility] (ROCALTROL) 3-[address] 0.25 MCG 13:43: mouth [facility] capsule 52 every l other day. carvediloL 0 Yes 12.5mg Q.5D Take 12.5 [facility] (COREG) 3-[address] 12.5 MG 13:43: mouth 2 [facility] tablet 52 (two) l times a day with meals. ergocalcife 0 Yes [id number] Q30D Take [facility] 3-25 50,000 [facility] (VITAMIN 13:43: Units by [facility] ta D2) 50,000 52 mouth l unit every 30 capsule (thirty) days. 15 of every month hydrALAZINE 2021-0 Yes 10mg Q.5D Take 10 mg [facility] (APRESOLINE 3-[address] ) 10 MG 13:43: (two) [facility]ospita tablet 52 times a l day. allopurinoL 2022-0 Yes 100mg QD Take 100 [facility] (ZYLOPRIM) 3-[address] 300 MG 13:43: mouth [facility] tablet 52 daily. l aspirin 2021-0 Yes 81mg QD Take 81 mg [facility] (ECOTRIN) 3-[address] 81 MG 13:43: daily. [facility] enteric 52 l coated tablet calcitrioL 2021-0 Yes .25ug Q2D Take 0.25 [facility] (ROCALTROL) 3-[address] 0.25 MCG 13:43: mouth [facility] capsule 52 every l other day. carvediloL 2021-0 Yes 12.5mg Q.5D Take 12.5 [facility] (COREG) 3-[address] 12.5 MG 13:43: mouth 2 [facility] tablet 52 (two) l times a day with meals. ergocalcife 2021-0 Yes [id number] Q30D Take [facility] 3-25 50,000 [...] capsule times a day. acetaminoph 2021-0 Yes [id number] 1{tbl} Q6H Take 1 [facility] en-codeine 3-[address] (TYLENOL 13:43: mouth [facility]osp[facility] WITH 52 every 6 l CODEINE #3) (six) 300-30 mg hours as per tablet needed for moderate pain .acute pain. albuterol 2021-0 Yes 2{puff} Inhale 2 [facility] (PROAIR 3-[address] HFA) 90 13:43: needed for Hosp live mcg/actuati 52 wheezing l on inhaler or shortness of breath. sodium 2021-0 Yes 650mg QD Take 650 [facility] bicarbonate 3-[address] 650 mg 13:43: mouth [facility] tablet 52 daily. l furosemide 2021-0 Yes 40mg QD Take 40 mg [facility] (LASIX) 40 3-[address] mg tablet 13:43: every [facility]ospita 52 morning. l tamsulosin 2021-0 2022- No .4mg QD Take 1 [facility] (FLOMAX) 3-25 04-[address] 0.4 mg 00:00: 04:59 (0.4 mg [facility]osp[facility] capsule 00 :00 total) by l mouth daily with dinner for 30 days. sucralfate 2022-0 2022- No 1g Q.25D Take 10 mL [facility] (CARAFATE) 3-25 04-25 ([address] 100 mg/mL 00:00: 04:59 total) by [facility] suspension 00 :00 mouth 4 l (four) times a day before meals and nightly for 30 days. pantoprazol 2022-0 2022- No 40mg QD Take 1 [facility] 3-25 04-25 tablet (40 st (Protonix) 00:00: 04:59 mg total) [facility] 40 MG EC 00 :00 by mouth l tablet daily for 30 days. tamsulosin 2022-0 2022- No .4mg QD Take 1 [facility] (FLOMAX) 3-25 04-[address] 0.4 mg 00:00: 04:59 (0.4 mg [facility]osp[facility] capsule 00 :00 total) by l mouth daily with dinner for 30 days. sucralfate 2022-0 2022- No 1g Q.25D Take 10 mL [facility] (CARAFATE) 3-25 04-25 ([address] 100 mg/mL 00:00: 04:59 total) by [facility] suspension 00 :00 mouth 4 l (four) times a day before meals and nightly for 30 days. pantoprazol 2022-0 2022- No 40mg QD Take 1 [facility] 3-25 04-25 tablet (40 st (Protonix) 00:00: 04:59 mg total) [facility] 40 MG EC 00 :00 by mouth l tablet daily for 30 days. tamsulosin 2022-0 2022- No .4mg QD Take 1 [facility] (FLOMAX) 3-25 04-[address] 0.4 mg 00:00: 04:59 (0.4 mg [facility]osp[facility] capsule 00 :00 total) by l mouth daily with dinner for 30 days. sucralfate 2022-0 2022- No 1g Q.25D Take 10 mL [facility] (CARAFATE) 3-25 04-25 ([address] 100 mg/mL 00:00: 04:59 total) by [facility] suspension 00 :00 mouth 4 l (four) times a day before meals and nightly for 30 days. pantoprazol 2022-0 2022- No 40mg QD Take 1 [facility] 3-25 04-25 tablet (40 st (Protonix) 00:00: 04:59 mg total) [facility] 40 MG EC 00 :00 by mouth l tablet daily for 30 days. tamsulosin 2022-0 2022- No .4mg QD Take 1 [facility] (FLOMAX) 3-25 04-[address] 0.4 mg 00:00: 04:59 (0.4 mg [facility]osp[facility] capsule 00 :00 total) by l mouth daily with dinner for 30 days. sucralfate 2022-0 2022- No 1g Q.25D Take 10 mL [facility] (CARAFATE) 3-25 04-25 ([address] 100 mg/mL 00:00: 04:59 total) by [facility] suspension 00 :00 mouth 4 l (four) times a day before meals and nightly for 30 days. pantoprazol 2022-0 2022- No 40mg QD Take 1 [facility] 3-25 04-25 tablet (40 st (Protonix) 00:00: 04:59 mg total) [facility] 40 MG EC 00 :00 by mouth l tablet daily for 30 days. tamsulosin 2022-0 2022- No .4mg QD Take 1 Meth [facility] (FLOMAX) 3-25 04-[address] 0.4 mg 00:00: 04:59 (0.4 mg [facility] capsule 00 :00 total) by l mouth daily with dinner for 30 days. sucralfate 2022-0 2022- No 1g Q.25D Take 10 mL [facility] (CARAFATE) 3-25 04-25 ([address] 100 mg/mL 00:00: 04:59 total) [facility] suspension 00 :00 mouth 4 l (four) times a day before meals and nightly for 30 days. pantoprazol 2022-0 2022- No 40mg QD Take 1 Met [facility] e 3-25 04-25 tablet (40 st (Protonix) 00:00: 04:59 mg total) [facility] 40 MG EC 00 :00 by mouth l tablet daily for 30 days. tamsulosin 2022-0 2022- No .4mg QD Take 1 Meth [facility] (FLOMAX) 3-25 04-[address] 0.4 mg 00:00: 04:59 (0.4 mg [facility] capsule 00 :00 total) by l mouth daily with dinner for 30 days. sucralfate 2022-0 2022- No 1g Q.25D Take 10 mL [facility] (CARAFATE) 3-25 04-25 ([address] 100 mg/mL 00:00: 04:59 total) [facility] suspension 00 :00 mouth 4 l (four) times a day before meals and nightly for 30 days. pantoprazol 2022-0 2022- No 40mg QD Take 1 Met [facility] 3-25 04-25 tablet (40 st (Protonix) 00:00: 04:59 mg total) [facility] 40 MG EC 00 :00 by mouth l tablet daily for 30 days. tamsulosin 2022-0 2022- No .4mg QD Take 1 Meth [facility] (FLOMAX) 3-25 04-[address] 0.4 mg 00:00: 04:59 (0.4 mg [facility] capsule 00 :00 total) by l mouth daily with dinner for 30 days. sucralfate 2022-0 2022- No 1g Q.25D Take 10 mL [facility] (CARAFATE) 3-25 04-25 ([address] 100 mg/mL 00:00: 04:59 total) [facility] suspension 00 :00 mouth 4 l (four) times a day before meals and nightly for 30 days. pantoprazol 2022-0 2022- No 40mg QD Take 1 [facility] 3-25 04-25 tablet (40 st (Protonix) 00:00: 04:59 mg total) [facility] 40 MG EC 00 :00 by mouth l tablet daily for 30 days. tamsulosin 2022-0 2022- No .4mg QD Take 1 Meth sarah (FLOMAX) 3-25 04-[address] 0.4 mg 00:00: 04:59 (0.4 mg [facility]ospita capsule 00 :00 total) by l mouth daily with dinner for 30 days. sucralfate 2022-0 2022- No 1g Q.25D Take 10 mL [facility] (CARAFATE) 3-25 04-25 ([address] 100 mg/mL 00:00: 04:59 total) by [facility] suspension 00 :00 mouth 4 l (four) times a day before meals and nightly for 30 days. pantoprazol 2022-0 2022- No 40mg QD Take 1 Met hodi e 3-25 04-25 tablet (40 st (Protonix) 00:00: 04:59 mg total) H [facility] 40 MG EC 00 :00 by mouth l tablet daily for 30 days. tamsulosin 2022-0 2022- No .4mg QD Take 1 Meth sarah (FLOMAX) 3-25 04-[address] 0.4 mg 00:00: 04:59 (0.4 mg [facility]osp[facility] capsule 00 :00 total) by l mouth daily with dinner for 30 days. sucralfate 2022-0 2022- No 1g Q.25D Take 10 mL [facility] (CARAFATE) 3-25 04-25 ([address] 100 mg/mL 00:00: 04:59 total) by [facility] suspension 00 :00 mouth 4 l (four) times a day before meals and nightly for 30 days. pantoprazol 2022-0 2022- No 40mg QD Take 1 Met hodi e 3-25 04-25 tablet (40 st (Protonix) 00:00: 04:59 mg total) [facility] 40 MG EC 00 :00 by mouth l tablet daily for 30 days. tamsulosin 2022-0 2022- No .4mg QD Take 1 Meth sarah (FLOMAX) 3-25 04-[address] 0.4 mg 00:00: 04:59 (0.4 mg [facility]osp[facility] capsule 00 :00 total) by l mouth daily with dinner for 30 days. sucralfate 2022-0 2022- No 1g Q.25D Take 10 mL [facility] (CARAFATE) 3-25 04-25 ([address] 100 mg/mL 00:00: 04:59 total) by [facility] suspension 00 :00 mouth 4 l (four) times a day before meals and nightly for 30 days. pantoprazol 2022-0 2022- No 40mg QD Take 1 Met hodi e 3-25 04-25 tablet (40 st (Protonix) 00:00: 04:59 mg total) [facility] 40 MG EC 00 :00 by mouth l tablet daily for 30 days. tamsulosin 2022-0 2022- No .4mg QD Take 1 Meth sarah (FLOMAX) 3-25 04-[address] 0.4 mg 00:00: 04:59 (0.4 mg [facility]osp[facility] capsule 00 :00 total) by l mouth daily with dinner for 30 days. sucralfate 2022-0 2022- No 1g Q.25D Take 10 mL [facility] (CARAFATE) 3-25 04-25 ([address] 100 mg/mL 00:00: 04:59 total) by [facility] suspension 00 :00 mouth 4 l (four) times a day before meals and nightly for 30 days. pantoprazol 2022-0 2022- No 40mg QD Take 1 Met hodi e 3-25 04-25 tablet (40 st (Protonix) 00:00: 04:59 mg total) [facility] 40 MG EC 00 :00 by mouth l tablet daily for 30 days. tamsulosin 2022-0 2022- No .4mg QD Take 1 Meth sarah (FLOMAX) 3-25 04-[address] 0.4 mg 00:00: 04:59 (0.4 mg [facility]osp[facility] capsule 00 :00 total) by l mouth daily with dinner for 30 days. sucralfate 2022-0 2022- No 1g Q.25D Take 10 mL [facility] (CARAFATE) 3-25 04-25 ([address] 100 mg/mL 00:00: 04:59 total) by [facility] suspension 00 :00 mouth 4 l (four) times a day before meals and nightly for 30 days. pantoprazol 2022-0 2022- No 40mg QD Take 1 Met hodi e 3-25 04-25 tablet (40 st (Protonix) 00:00: 04:59 mg total) [facility] 40 MG EC 00 :00 by mouth l tablet daily for 30 days. tamsulosin 2022-0 2022- No .4mg QD Take 1 Meth sarah (FLOMAX) 3-25 04-[address] 0.4 mg 00:00: 04:59 (0.4 mg [facility] capsule 00 :00 total) by l mouth daily with dinner for 30 days. sucralfate 2022-0 2022- No 1g Q.25D Take 10 mL [facility] (CARAFATE) 3-25 04-25 ([address] 100 mg/mL 00:00: 04:59 total) by [facility] suspension 00 :00 mouth 4 l (four) times a day before meals and nightly for 30 days. pantoprazol 2022-0 2022- No 40mg QD Take 1 Met hodi e 3-25 04-25 tablet (40 st (Protonix) 00:00: 04:59 mg total) [facility] 40 MG EC 00 :00 by mouth l tablet daily for 30 days. tamsulosin 2022-0 2022- No .4mg QD Take 1 Meth sarah (FLOMAX) 3-25 04-[address] 0.4 mg 00:00: 04:59 (0.4 mg [facility]osp[facility] capsule 00 :00 total) by l mouth daily with dinner for 30 days. sucralfate 2022-0 2022- No 1g Q.25D Take 10 mL [facility] (CARAFATE) 3-25 04-25 ([address] 100 mg/mL 00:00: 04:59 total) by [facility] suspension 00 :00 mouth 4 l (four) times a day before meals and nightly for 30 days. pantoprazol 2022-0 202- No 40mg QD Take 1 Met hodi e -24 06-25 tablet (40 st (Protonix) 00:00: 04:59 mg total) [facility] 40 MG EC 00 :00 by mouth l tablet daily for 30 days. valACYclovi 2021- No 500mg QD Take 1 Me thodi r (Valtrex) 3-25 04-[address] 500 MG 00:00: 04:59 (500 mg [facility]ospita tablet 00 :00 total) by l mouth daily for 10 days. Take at 8 pm and after dialysis on dialysis days valACYclovi 2021- No 500mg QD Take 1 Me thodi r (Valtrex) 3-25 04-[address] 500 MG 00:00: 04:59 (500 mg [facility]osp[facility] tablet 00 :00 total) by l mouth daily for 10 days. Take at 8 pm and after dialysis on dialysis days valACYclovi 2021- No 500mg QD Take 1 Me th[facility] r (Valtrex) 3-24 06-[address] 500 MG 00:00: 04:59 (500 mg [facility]osp[facility] tablet 00 :00 total) by l mouth daily for 10 days. Take at 8 pm and after dialysis on dialysis days valACYclovi 2021- No 500mg QD Take 1 Me th[facility] r (Valtrex) 05-24 04-[address] 500 MG 00:00: 04:59 (500 mg [facility]osp[facility] tablet 00 :00 total) by l mouth daily for 10 days. Take at 8 pm and after dialysis on dialysis days valACYclovi 2021- No 500mg QD Take 1 Me thodi r (Valtrex) 3- 04-[address] 500 MG 00:00: 04:59 (500 mg [facility]osp[facility] tablet 00 :00 total) by l mouth daily for 10 days. Take at 8 pm and after dialysis on dialysis days valACYclovi 2021- No 500mg QD Take 1 Me thodi r (Valtrex) 3-25 04-[address] 500 MG 00:00: 04:59 (500 mg [facility] tablet 00 :00 total) by l mouth daily for 10 days. Take at 8 pm and after dialysis on dialysis days valACYclovi 2021- No 500mg QD Take 1 Me th[facility] r (Valtrex) 3-25 04-[address] 500 MG 00:00: 04:59 (500 mg [facility]osp[facility] tablet 00 :00 total) by l mouth daily for 10 days. Take at 8 pm and after dialysis on dialysis days valACYclovi No 500mg QD Take 1 Me th[facility] r (Valtrex) 05-24-[address] 500 MG 00:00: 04:59 (500 mg [facility]osp[facility] tablet 00 :00 total) by l mouth daily for 10 days. Take at 8 pm and after dialysis on dialysis days valACYclovi 2021- No 500mg QD Take 1 Me th[facility] r (Valtrex) 05-24-[address] 500 MG 00:00: 04:59 (500 mg [facility]osp[facility] tablet 00 :00 total) by l mouth daily for 10 days. Take at 8 pm and after dialysis on dialysis days valACYclovi 2021- No 500mg QD Take 1 Me thodi r (Valtrex) 05-24-[address] 500 MG 00:00: 04:59 (500 mg [facility]osp[facility] tablet 00 :00 total) by l mouth daily for 10 days. Take at 8 pm and after dialysis on dialysis days omeprazole Yes 20 mg = 1 Me moria 20 mg oral 2-07 cap, PO, l delayed 18:57: Daily [place] release 00 capsule omeprazole Yes 20 mg = 1 Me moria 20 mg oral 2-07 cap, PO, l delayed 18:57: Daily [place] release 00 capsule Docusate Yes 100 mg = 1 [facility] Sodium 100 2-07 cap, PO, l MG Oral 18:53: Daily [facility] Capsule 00 docusate Yes 100 mg = 1 [facility] sodium 100 2-07 cap, PO, l mg oral 18:53: Daily [facility] capsule 00 Docusate Yes 100 mg = 1 [facility] Sodium 100 2-07 cap, PO, l MG Oral 18:53: Daily [place] Capsule 00 docusate Yes 100 mg = 1 [facility] sodium 100 2-07 cap, PO, l mg oral 18:53: Daily [place] capsule 00 Acetaminoph Yes 1,000 mg = [facility] en 500 MG 2-07 2 tab, PO, l Oral Tablet 18:48: Q6H, PRN He rmann [Tylenol] 00 Pain Tylenol Yes 1,000 mg = Jonathan kayden Extra 2-07 2 tab, PO, l Strength 18:48: Q6H, PRN Mehreen nn 500 mg oral 00 Pain tablet Acetaminoph Yes 1,000 mg = [facility] en 500 MG 2-07 2 tab, PO, l Oral Tablet 18:48: Q6H, PRN He rmann [Tylenol] 00 Pain Tylenol Yes 1,000 mg = Jonathan kayden Extra 2-07 2 tab, PO, l Strength 18:48: Q6H, PRN Mehreen nn 500 mg oral 00 Pain tablet Potassium No TAKE 1 Memori a Chloride 2-07 TABLET BY l (Eqv-K-Tab) 18:47: MOUTH Mehreen nn 20 mEq oral 00 EVERY DAY tablet, extended release Furosemide Yes 40 mg = 1 Me moria 40 MG Oral 2-07 tab, PO, l Tablet 18:47: BID carvedilol Yes 3.125 mg = M emoria 6.25 mg 2-07 0.5 tab, l oral tablet 18:47: PO, BID furosemide Yes 40 mg = 1 Me moria 40 mg oral 2-07 tab, PO, l tablet 18:47: BID Potassium No TAKE 1 Memori a Chloride 2-07 TABLET BY l (Eqv-K-Tab) 18:47: MOUTH Mehreen nn 20 mEq oral 00 EVERY DAY tablet, extended release Furosemide Yes 40 mg = 1 Me moria 40 MG Oral 2-07 tab, PO, l Tablet 18:47: BID carvedilol Yes 3.125 mg = M emoria 6.25 mg 2-07 0.5 tab, l oral tablet 18:47: PO, BID Her sarmiento furosemide 0 Yes 40 mg = 1 Me moria 40 mg oral 2-07 tab, PO, l tablet 18:47: BID lisinopril 0 Yes 40 mg = 1 Me moria 40 mg oral 2-07 tab, PO, l tablet 18:39: Daily lisinopril 2022-0 Yes 40 mg = 1 Me moria 40 mg oral 2-07 tab, PO, l tablet 18:39: Daily tadalafil 2020-0 Yes [id number] 5mg QD Take 1 [facility] T (Cialis) 5 8-23 tablet (5 [facility] MG tablet 00:00: mg total) 00 by mouth 1 (one) time each day. Pt will hold the daily when taking on demand. tadalafil 2020-0 Yes [id number] 20mg Take 1 U T (Cialis) 20 8-23 tablet (20 [facility] MG tablet 00:00: mg total) 00 by mouth if needed for erectile dysfunctio n (Pt will hold the daily dose and can not take more than q 36 hours). tadalafil 1-0 Yes [id number] 5mg QD Take 1 U T (Cialis) 5 8-23 tablet (5 [facility] MG tablet 00:00: mg total) 00 by mouth 1 (one) time each day. Pt will hold the daily when taking on demand. tadalafil 2020-0 Yes [id number] 20mg Take 1 [facility] T (Cialis) 20 8-23 tablet (20 [facility] MG tablet 00:00: mg total) 00 by mouth if needed for erectile dysfunctio n (Pt will hold the daily dose and can not take more than q 36 hours). tadalafil 2020-0 2020- No [id number] 5mg QD Take 1 [facility] (Cialis) 5 8- 11-22 tablet (5 [facility] MG tablet 00:00: 05:59 mg total) 00 :00 by mouth 1 (one) time each day. Pt will hold the daily when taking on demand. tadalafil 2020-0 2020- No [id number] 20mg Take 1 [facility] (Cialis) 20 8- 11-22 tablet (20 H ealth MG tablet 00:00: 05:59 mg total) 00 :00 by mouth if needed for erectile dysfunctio n (Pt will hold the daily dose and can not take more than q 36 hours). tadalafil 2020-0 1- No [id number] 5mg QD Take 1 [facility] (Cialis) 5 8- 11-22 tablet (5 [facility] MG tablet 00:00: 05:59 mg total) 00 :00 by mouth 1 (one) time each day. Pt will hold the daily when taking on demand. tadalafil 2020- No [id number] 20mg Take 1 [facility] (Cialis) 20 8-23 11-22 tablet (20 [facility] e[facility] MG tablet 00:00: 05:59 mg total) 00 :00 by mouth if needed for erectile dysfunctio n (Pt will hold the daily dose and can not take more than q 36 hours). tadalafil 2020- No [id number] 5mg QD Take 1 [facility] (Cialis) 5 8-23 11-22 tablet (5 [facility] l[facility] MG tablet 00:00: 05:59 mg total) 00 :00 by mouth 1 (one) time each day. Pt will hold the daily when taking on demand. tadalafil 2020- No [id number] 20mg Take 1 [facility] (Cialis) 20 8-22 01-22 tablet (20 H ealth MG tablet 00:00: 05:59 mg total) 00 :00 by mouth if needed for erectile dysfunctio n (Pt will hold the daily dose and can not take more than q 36 hours). allopurinoL Yes 300mg QD Take 300 M [...] l times a day with meals. ergocalcife 0 Yes [id number] Q30D Take Meth sarah rol 7-22 50,000 st (VITAMIN 22:35: Units by Hospi ta D2) 50,000 26 mouth l unit every 30 capsule (thirty) days. 15th of every month hydrALAZINE 0 Yes 10mg Q.5D Take 10 mg [facility] (APRESOLINE 7-[address] ) 10 MG 22:35: (two) Hospita tablet 26 times a l day. magnesium 2020-0 Yes 400mg QD Take 400 Met hodi oxide 7-[address] (MAG-OX) 22:35: mouth [facility]osp[facility] 400 mg 26 every l (241.3 mg morning. magnesium) tablet albuterol 0 Yes 2.5mg Q.5D Take 2.5 Met hodi [...] capsule times a day. acetaminoph 0 Yes [id number] 1{tbl} Q6H Take 1 M ethodi en-codeine 7-[address] (TYLENOL 22:35: mouth Hospita WITH 26 every 6 l CODEINE #3) (six) 300-30 mg hours as per tablet needed for moderate pain .acute pain. omeprazole 0 Yes 20mg QD Take 20 mg M ethodi (PriLOSEC) 7-[address] 20 MG 22:35: daily. [facility]ospita capsule 26 l albuterol 2020-0 Yes 2{puff} Inhale 2 M ethodi (PROAIR 7-[address] HFA) 90 22:35: needed for Hosp live mcg/actuati 26 wheezing l on inhaler or shortness of breath. sodium 2020-0 Yes 650mg QD Take 650 [facility] bicarbonate 7-[address] 650 mg 22:35: mouth [facility]osp[facility] tablet 26 daily. l furosemide 2020-0 Yes 40mg QD Take 40 mg M ethodi (LASIX) 40 7-[address] mg tablet 22:35: every Hospita 26 morning. l hydrALAZINE 2021-0 Yes hydralazin UT (Apresoline 7-22 e 10 mg Healt h ) 10 MG 00:00: tablet tablet 00 TAKE 1 TABLET BY MOUTH TWICE A DAY aspirin 81 Yes 1{tbl} QD Take 1 UT MG EC 7-22 tablet by Health tablet 00:00: mouth 1 00 (one) time each day. hydrALAZINE Yes hydralazin UT (Apresoline 7-22 e 10 mg Healt h ) 10 MG 00:00: tablet tablet 00 TAKE 1 TABLET BY MOUTH TWICE A DAY aspirin 81 Yes 1{tbl} QD Take 1 UT MG EC 7-22 tablet by Health tablet 00:00: mouth 1 00 (one) time each day. tamsulosin 2020- No .4mg QD Take 1 Meth sarah (FLOMAX) 09-[address] 0.4 mg 00:00: 04:59 (0.4 mg [facility]ospita capsule 00 :00 total) by l mouth daily with dinner for 30 days. methylPREDN 2020- No follow Met hodi ISolone 09-[address] (Medrol, 00:00: 04:59 directions Ho omar Allan,) 4 mg 00 :00 l tablet atorvastati [...] Q.5D Take 20 mg [facility] (PEPCID) 20 09-19 07-21 by mouth 2 s t MG tablet 21:24: 00:00 (two) Hospit a 30 :00 times a l day. Take 1 tab by mouth twice a day 0.5 ML No Notes: [facility] Varicella 6-16 (Same as: l zoster 18:00: Shingrix) Oni n virus 00 glycoprotei n E, recombinant 0.1 MG/ML Injection [Shingrix] 0.5 ML No Notes: [facility] Hepatitis B 6-16 (Same as: l Surface 18:00: Heplisav-B Herm nora Antigen 00 ) Vaccine Non-Formul 0.04 MG/ML elzbieta Injection 0.5 ML No Notes: [facility] Varicella 6-16 (Same as: l zoster 18:00: Shingrix) Oni n virus 00 glycoprotei n E, recombinant 0.1 MG/ML Injection [Shingrix] 0.5 ML No Notes: [facility] Hepatitis B 6-16 (Same as: l Surface 18:00: Heplisav-B Herm nora Antigen 00 ) Vaccine Non-Formul 0.04 MG/ML elzbieta Injection Pneumovax No Notes: Memori a 23 6-16 (Same as: l 17:52: Pneumovax [place] ) Refrigerat e Pneumovax No Notes: Memori a 23 6-16 (Same as: l 17:52: Pneumovax [facility] ) Refrigerat e ciprofloxac 2020- No ciprofloxa [facility] in HCl 5-26 05-[address] (CIPRO) 250 17:16: 00:00 tablet Hos nehemiah MG tablet 07 :00 l azithromyci 2020- No 500mg QD Take 1 Me thodi n 5-26 05-[address] (Zithromax) 00:00: 04:59 (500 mg Ho [facility]ita 500 MG 00 :00 total) by l tablet mouth daily for 3 days. tadalafiL 2020- No 5mg Q24H Take 5 mg Me thodi (CIALIS) 5 5-25 05-[address] MG tablet 08:35: 00:00 daily as Hos nehemiah 55 :00 needed for l erectile dysfunctio n. amLODIPine 2020- No 5mg QD Take 1 Meth sarah (NORVASC) 5 5-14 06-14 tablet (5 st mg tablet 00:00: 04:59 mg total) Ho spita 00 :00 by mouth l daily for 30 days. sodium 2021-0 2021- No 650mg QD Take 1 [facility] bicarbonate 5-14 06-[address] 650 mg 00:00: 04:59 (650 mg Hospita tablet 00 :00 total) by l mouth daily for 30 days. 0.5 ML No Notes: [facility] Hepatitis B 5-13 (Same as: l Surface 18:00: Heplisav-B Herm nora Antigen ) Vaccine Non-Formul 0.04 MG/ML elzbieta Injection 0.5 ML No Notes: [facility] Bordetella 5-13 Therapeuti l pertussis 18:00: c [place] filamentous 00 Interchang hemagglutin e for in vaccine, Boostrix inactivated 0.016 MG/ML / Bordetella pertussis pertactin vaccine, inactivated 0.005 MG/ML / Bordetella pertussis toxoid vaccine, inactivated 0.016 MG/ML / diphtheria toxoid vaccine, inactivate 0.5 ML No Notes: [facility] Hepatitis B 5-13 (Same as: l Surface 18:00: Heplisav-B Herm nora Antigen 00 ) Vaccine Non-Formul 0.04 MG/ML elzbieta Injection 0.5 ML No Notes: [facility] Bordetella 5-13 Therapeuti l pertussis 18:00: c [place] filamentous 00 Interchang hemagglutin e for in vaccine, Boostrix inactivated 0.016 MG/ML / Bordetella pertussis pertactin vaccine, inactivated 0.005 MG/ML / Bordetella pertussis toxoid vaccine, inactivated 0.016 MG/ML / diphtheria toxoid vaccine, inactivate polyethylen No 17g Q24H Take 17 g [facility] e glycol 5-12 08-[address] (MIRALAX) 00:00: 04:59 daily as Hos nehemiah 17 gram 00 :00 needed for l packet constipati on for up to 30 days. sennosides- 2020- No 1{tbl} Q.5D Take 1 M ethodi docusate 5-13 05-[address] sodium 00:00: 00:00 mouth 2 Hospita (SENOKOT-S) 00 :00 (two) l 8.6-50 mg times a per tablet day as needed for constipati on for up to 30 days. acetaminoph 2020- [place] [id number] 1{tbl} Q6H Take 1 [facility] en-codeine 5-13 05-[address] (TYLENOL 00:00: 04:59 mouth [facility]ospita WITH 00 :00 every 6 l CODEINE #3) (six) 300-30 mg hours as per tablet needed for moderate pain or severe pain for up to 7 days .acute pain. ivermectin Yes 21 mg = 7 Me moria 3 mg oral 4-15 tab, PO, l tablet 13:59: Daily, # [facility] 00 14 tab, 0 Refill(s), Pharmacy: [facility] #[id number], 187.96, cm, 06/14/20 7:58:00 CDT, Height, 109.045, kg, 06/14/20 7:58:00 CDT, Weight ivermectin Yes 21 mg = 7 Me moria 3 mg oral 4-15 tab, PO, l tablet 13:59: Daily, # Zen 00 14 tab, 0 Refill(s), Pharmacy: [facility] #[id number], 187.96, cm, 06/14/20 7:58:00 CDT, Height, 109.045, kg, 06/14/20 7:58:00 CDT, Weight calcitriol Yes 0.5 Memoria 0.5 mcg 2-03 microgram l oral 14:11: = 1 cap, [facility] capsule 00 PO, Every Other Day calcitriol Yes 0.5 [facility]oria 0.5 mcg 2-03 microgram l oral 14:11: = 1 cap, [place] capsule 00 PO, Every Other Day allopurinol 0 Yes 100 mg = 1 [facility] 100 mg oral 2-03 tab, PO, l tablet 14:06: Daily [facility] 00 allopurinol 0 Yes 100 mg = 1 [facility] 100 mg oral 2-03 tab, PO, l tablet 14:06: Daily Tadalafil 5 Tadalafil 5 2019-0 Yes SILVINO COSME 1 TAKE 1 UT MG Oral MG Oral 8-24 M.D. TABLET [facility] Tablet Tablet 00:00: BEDTIME Tadalafil Tadalafil 2019-0 Yes SILVINO COSME TAKE 1 UT 20 MG Oral 20 MG Oral 8-24 M.D. TABLET 1 [facility] Tablet Tablet 00:00: HOUR ans 00 BEFORE ACTIVITY NEEDED. 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 amLODIPine 2020-0 Yes 5 mg = 1 Mem oria 5 mg oral 1-31 tab, PO, l tablet 22:40: Daily, # [place] 00 90 tab, 3 Refill(s), Pharmacy: [email or web address] #[id number] atorvastati 2020-0 Yes 20 mg = 1 M emoria n 20 mg 1-31 tab, PO, l oral tablet 22:40: Bedtime, # Zen 00 90 tab, 2 Refill(s), Pharmacy: [email or web address] #[id number] amLODIPine 2020-0 Yes 5 mg = 1 Mem oria 5 mg oral 1-31 tab, PO, l tablet 22:40: Daily, # [place] 00 90 tab, 3 Refill(s), Pharmacy: [email or web address] #[id number] atorvastati 2020-0 Yes 20 mg = 1 M emoria n 20 mg 1-31 tab, PO, l oral tablet 22:40: Bedtime, # Zen 00 90 tab, 2 Refill(s), Pharmacy: [email or web address] #[id number] atorvastati 2020-0 No 20 mg = 1 M emoria n 20 mg 1-31 tab, PO, l oral tablet 22:39: Bedtime, # [place] 00 90 tab, 3 Refill(s) amLODIPine 2020-0 No 5 mg = 1 Mem oria 5 mg oral 1-31 tab, PO, l tablet 22:39: Daily, # Zen 00 90 tab, 1 Refill(s) atorvastati 2020-0 No 20 mg = 1 M emoria n 20 mg 1-31 tab, PO, l oral tablet 22:39: Bedtime, # Zen 00 90 tab, 3 Refill(s) amLODIPine 2020-0 No 5 mg = 1 Mem oria 5 mg oral 1-31 tab, PO, l tablet 22:39: Daily, # [place] 00 90 tab, 1 Refill(s) Metoprolol 2020-0 No 25 mg = Jonathan kayden Tartrate 50 1-15 0.5 tab, l mg oral 14:23: PO, BID, Oni n tablet 00 TAKE 1/2 TABLET BY MOUTH TWICE A DAY WITH MEALS Breo 2019-0 Yes INHALE 1 Memoria Ellipta 100 1-15 [...] l tablet 14:23: Daily Zen 00 Acetaminoph 2020-0 Yes 2 tab, PO, Memoria en 300 MG / 1-15 Q6H, l Codeine 14:23: NEEDED FOR Herm nora Phosphate 00 PAIN 30 MG Oral Tablet albuterol 2019-0 Yes INHALE 2 Jonathan kayden 90 mcg/inh 1-15 PUFFS BY l inhalation 14:23: MOUTH Oni n aerosol 00 EVERY 4 HOURS NEEDED FOR SHORTNESS OF BREADTH Metoprolol 2020-0 No 25 mg = Jonathan kayden Tartrate 50 1-15 0.5 tab, l mg oral 14:23: PO, BID, Oni n tablet 00 TAKE 1/2 TABLET BY MOUTH TWICE A DAY WITH MEALS Breo 2020-0 Yes INHALE 1 Memoria Ellipta 100 1-15 PUFF BY l mcg-25 mcg 14:23: MOUTH ONCE H ermann inhalation 00 A DAY FOR powder 90 DAYS cyclobenzap 2020-0 Yes 10 mg = 1 M emoria rine 10 mg 1-15 tab, PO, l oral tablet 14:23: Q8H, Her sarmiento 00 NEEDED FOR MUSCLE SPASMS allopurinol 2019-0 Yes 200 mg = 2 Memoria 100 mg oral 1-15 tab, PO, l tablet 14:23: Daily Zen 00 Acetaminoph 2020-0 Yes 2 tab, PO, Memoria en 300 MG / 1-15 Q6H, l Codeine 14:23: NEEDED FOR Herm nora Phosphate 00 PAIN 30 MG Oral Tablet albuterol 2019-0 Yes INHALE 2 Jonathan kayden 90 mcg/inh 1-15 PUFFS BY l inhalation 14:23: MOUTH Oni n aerosol 00 EVERY 4 HOURS NEEDED FOR SHORTNESS OF BREADTH MethylPREDN 2019-0 No See Memori a ISolone 1-15 Instructio l Dose Pack 4 14:16: ns, PO, Her sarmiento mg oral 00 Daily, Use tablet as directed on label., 0 Refill(s) carvedilol 2019-0 Yes 25 mg = 1 Me moria 25 mg oral 1-15 tab, PO, l tablet 14:16: BID, 1 Zen 00 Refill(s) MethylPREDN 2019-0 No See Memori a ISolone 1-15 Instructio l Dose Pack 4 14:16: ns, PO, Her sarmiento mg oral 00 Daily, Use tablet as directed on label., 0 Refill(s) carvedilol 2020-0 Yes 25 mg = 1 Me moria 25 mg oral 1-15 tab, PO, l tablet 14:16: BID, 1 [place] 00 Refill(s) carvedilol 2018-0 Yes 6.25 mg = Me moria 6.25 mg 5-24 1 tab, PO, l oral tablet 14:21: Q12H, # 60 Zen 00 tab, 5 Refill(s), Pharmacy: [facility] #[id number] atorvastati Yes 10 mg = 1 M emoria n 10 mg 5-24 tab, PO, l oral tablet 14:21: Bedtime, # [place] 00 30 tab, 5 Refill(s), Pharmacy: [facility] #[id number] carvedilol 2018- Yes 6.25 mg = Me moria 6.25 mg 5-24 1 tab, PO, l oral tablet 14:21: Q12H, # 60 Zen 00 tab, 5 Refill(s), Pharmacy: [facility] #[id number] atorvastati Yes 10 mg = 1 M emoria n 10 mg 5-24 tab, PO, l oral tablet 14:21: Bedtime, # Zen 00 30 tab, 5 Refill(s), Pharmacy: [facility] #[id number] carvedilol No 3.125 mg = M emoria 3.125 mg 4-24 1 tab, PO, l oral tablet 17:20: BID, 0 Herm nora 00 Refill(s) calcitriol Yes 0.25 Memoria 0.25 mcg 4-24 microgram l oral 17:20: = 1 cap, [place] capsule 00 PO, Daily, 0 Refill(s) tamsulosin Yes 0.4 mg = 1 M emoria 0.4 mg oral 4-24 cap, PO, l capsule 17:20: Daily, 0 Oni n 00 Refill(s) carvedilol No 3.125 mg = M emoria 3.125 mg 4-24 1 tab, PO, l oral tablet 17:20: BID, 0 Herm nora 00 Refill(s) calcitriol Yes 0.25 Memoria 0.25 mcg 4-24 microgram l oral 17:20: = 1 cap, [place] capsule 00 PO, Daily, 0 Refill(s) tamsulosin Yes 0.4 mg = 1 M emoria 0.4 mg oral 4-24 cap, PO, l capsule 17:20: Daily, 0 Oni n 00 Refill(s) metoprolol Yes 50 mg = 1 Me moria tartrate 50 2-06 tab, PO, l mg oral 01:26: Daily [place] tablet 00 metoprolol Yes 50 mg = 1 Me moria tartrate 50 2-06 tab, PO, l mg oral 01:26: Daily [facility] tablet 00 carvedilol Yes 12.5 mg = Me moria 12.5 mg 2-06 1 tab, PO, l oral tablet 01:24: BID, WITH H ermann 00 FOOD carvedilol Yes 12.5 mg = Me moria 12.5 mg 2-06 1 tab, PO, l oral tablet 01:24: BID, WITH H ermann 00 FOOD amLODIPine Yes 10 mg = 1 Me moria 10 mg oral 2-06 tab, PO, l tablet 00:10: Daily, # Zen 00 30 tab, 0 Refill(s) amLODIPine Yes 10 mg = 1 Me moria 10 mg oral 2-06 tab, PO, l tablet 00:10: Daily, # [place] 00 30 tab, 0 Refill(s) Metoprolol Yes 25 mg = Jonathan kayden Tartrate 50 2-05 0.5 tab, l mg oral 23:05: PO, BID [place] tablet magnesium Yes 400 mg = 1 Me moria oxide 400 2-05 tab, PO, l mg oral 23:05: Daily Zen tablet Metoprolol Yes 25 mg = Jonathan kayden Tartrate 50 2-05 0.5 tab, l mg oral 23:05: PO, BID [place] tablet magnesium Yes 400 mg = 1 Me moria oxide 400 2-05 tab, PO, l mg oral 23:05: Daily [place] tablet Glipizide Yes 10 mg = 1 Mem oria 10 MG Oral 2-04 tab, PO, l Tablet 20:52: Daily, 0 Zen 00 Refill(s) pravastatin Yes 80 mg = 1 M emoria 80 mg oral 2-04 tab, PO, l tablet 20:52: Daily, 0 [place] 00 Refill(s) Amlodipine No 10 mg, PO, M emoria 2-04 Daily, 0 l 20:52: Refill(s) [place] 00 Esomeprazol Yes 40 mg = 1 M emoria e 40 MG 2-04 cap, PO, l Enteric 20:52: Daily, 0 Oni n Coated 00 Refill(s) Capsule metoprolol No 100 mg = 1 M emoria 100 mg oral 2-04 tab, PO, l tablet, 20:52: BID, 0 [place] extended 00 Refill(s) release allopurinol Yes 300 mg = 1 Memoria 300 mg oral 2-04 tab, PO, l tablet 20:52: Daily, 0 Zen 00 Refill(s) Doxepin Yes 6 mg, PO, Memor ia 2-04 Bedtime, 0 l 20:52: Refill(s) [place] carvedilol No 3.125 mg = M emoria 3.125 mg 2-04 1 tab, PO, l oral tablet 20:52: BID, 0 Herm nora Refill(s) losartan 25 Yes 25 mg = 1 M emoria mg oral 2-04 tab, PO, l tablet 20:52: Daily, 0 Zen Refill(s) Ranitidine Yes 150 mg = 1 M emoria 150 MG Oral 2-04 tab, PO, l Tablet 20:52: Bedtime, 0 Mehreen Refill(s) Adult Yes 81 mg = 1 [facility] Aspirin 81 2-04 tab, CHEW, l mg oral 20:52: Daily, 0 Oni n tablet, 00 Refill(s) chewable Adult Yes 81 mg = 1 [facility] Aspirin 81 2-04 tab, CHEW, l mg oral 20:52: Daily, 0 Oni n tablet, 00 Refill(s) chewable Glipizide Yes 10 mg = 1 Mem oria 10 MG Oral 2-04 tab, PO, l Tablet 20:52: Daily, 0 [place] 00 Refill(s) pravastatin Yes 80 mg = [...] l tablet, 20:52: BID, 0 Zen extended Refill(s) release allopurinol Yes 300 mg = 1 Memoria 300 mg oral 2-04 tab, PO, l tablet 20:52: Daily, 0 [place] Refill(s) Doxepin Yes 6 mg, PO, Memor ia 2-04 Bedtime, 0 l 20:52: Refill(s) Zen 00 carvedilol No 3.125 mg = M emoria [...] 0 Oni n tablet, 00 Refill(s) chewable Adult Yes 81 mg = 1 [facility] Aspirin 81 2-04 tab, CHEW, l mg oral 20:52: Daily, 0 Oni n tablet, 00 Refill(s) chewable traMADOL 50 2017-03 Yes 50mg Take 1 Univ [facility] mg tablet 2-07 tablet by ity o f 00:00: mouth [place] 00 every 6 Medical (six) Branch hours as needed for Pain (scale 4-6). potassium No Notes: Memori a phosphate-s 11-03 (Same as: l odium 20:02: Phos-NaK) [place] phosphate 00 Each 1.5 250 mg-45 gm pkt has mg-298 mg 250mg oral tablet phosphorou s. Mix w/2.5oz water and stir. potassium No Notes: Mem[facility] a phosphate-s 11-03 [...] Monobasic 130 MG Oral Tablet [K-Phos Neutral] potassium No Notes: Memori a phosphate 9 (Same as: l 155 MG / 19:54: K-Phos [place] Sodium 00 Neutral, Phosphate, Phospha Dibasic 852 250 MG / Sodium Neutral) Phosphate, Monobasic 130 MG Oral Tablet [K-Phos Neutral] Magnesium No Notes: Memori a Sulfate - WASTE: F/P l 19:52: - Sink; E Zen - Municipal Trash Bin Magnesium No Notes: [facility] a Sulfate - WASTE: F/P l 19:52: - Sink; E [facility] - [facility] Trash Bin GI cocktail No Notes: Jonathan kayden 9-04 G.I. l 15:34: Cocktail = [place] 00 antacid with simethicon e 22.5 mL - lidocaine viscous 7.5 mL Sodium 2016- No 1,000 mL, Memori a Chloride 9-04 2,000 l 0.9% IV 15:34: ml/hr, [place] (Sodium 00 Infuse Chloride Over: 30 0.9% minutes, (Bolus) IV) Route: IV, 1,000, Drug form: INJ, ONCE, Priority: STAT, Dosing Weight 118.182 kg, Start date: 11/03/16 10:34:00 CDT, Duration: 1 doses or times, Stop date: 11/03/16 10:34:00 CDT Saline No Notes: Memoria Flush 0.9% - (Same as: l 15:34: BD [place] 00 Posiflush) GI cocktail No Notes: Jonathan kayden -04 G.I. l 15:34: Cocktail = Zen 00 antacid with simethicon e 22.5 mL - lidocaine viscous 7.5 mL Sodium 2016- No 1,000 mL, Memori a Chloride 9-04 2,000 l 0.9% IV 15:34: ml/hr, [place] (Sodium 00 Infuse Chloride Over: 30 0.9% minutes, (Bolus) IV) Route: IV, 1,000, Drug form: INJ, ONCE, Priority: STAT, Dosing Weight 118.182 kg, Start date: 11/03/16 10:34:00 CDT, Duration: 1 doses or times, Stop date: 11/03/16 10:34:00 CDT Saline No Notes: [facility] Flush 0.9% 9-04 (Same as: l 15:34: BD Zen 00 Posiflush) clindamycin Yes 300 mg = 1 Memoria 300 mg oral 7-11 cap, PO, l capsule 21:49: TID, X 10 Mehreen nn 00 day, # 30 cap, 0 Refill(s) clindamycin Yes 300 mg = 1 Memoria 300 mg oral 7-11 cap, PO, l capsule 21:49: TID, X 10 Mehreen nn 00 day, # 30 cap, 0 Refill(s) GI cocktail No Notes: Jonathan kayden 7-11 G.I. l 21:05: Cocktail = [place] 00 antacid with simethicon e 22.5 mL - lidocaine viscous 7.5 mL GI cocktail No Notes: Jonathan kayden 7-11 G.I. l 21:05: Cocktail = [place] 00 antacid with simethicon e 22.5 mL - lidocaine viscous 7.5 mL { Yes See Memoria (Methylpred 4-20 Instructio l nisolone 4 21:22: ns, PO, Herm nora MG Oral 00 Take by Tablet mouth as [Medrol]) } directed Pack on label., [Medrol X 6 day, # Dosepak] 1 Pack, 0 Refill(s) { Yes See Memoria (Methylpred 4-20 Instructio l [...] or times, Stop date: 06/20/15 12:27:00 CDT Sodium No 1,000 mL, Memori a Chloride 4-20 1,000 l 0.154 17:27: ml/hr, Zen MEQ/ML 00 Infuse Injectable Over: 1 Solution hr, Route: IV, 1,000, Drug form: INJ, ONCE, Priority: STAT, Dosing Weight 118.182 kg, Start date: 06/20/15 12:27:00 CDT, Duration: 1 doses or times, Stop date: 06/20/15 12:27:00 CDT Zofran No Notes: Memoria 4-20 (Same as: l 16:01: Zofran) Zen MEDICATION WASTE Product Size: 4 mg Product Wasted: ___ mg Zofran No Notes: Memoria 4-20 (Same as: l 16:01: Zofran) Zen MEDICATION WASTE Product Size: 4 mg Product Wasted: ___ mg Morphine No Notes: Memoria 4-20 (Same l 16:00: as:MORPhin [place] 00 e Sulfate) Morphine No Notes: Memoria 4-20 (Same l 16:00: as:MORPhin Zen 00 e Sulfate) Saline No Notes: [facility] Flush 0.9% 4-20 (Same as: l 15:18: BD [place] 00 Posiflush) Saline No Notes: [facility] Flush 0.9% 4-20 (Same as: l 15:18: BD Posiflush) acetaminoph acetaminoph Yes [address] [facility] en 300 MG / en 300 MG / L ukes codeine codeine Memoria phosphate phosphate l 30 MG Oral 30 MG Oral (VALORIE F/LI Tablet Tablet V/SA) cefdinir cefdinir Yes 300mg [facility]xD [facility] 300 MG Oral 300 MG Oral L ukes Capsule Capsule Memoria l (LUF/LI V/SA) acetaminoph acetaminoph Yes 1 3xD orally [address] [facility] en 300 MG / en 300 MG / times per [facility] codeine codeine day as Memoria phosphate phosphate needed. l 30 MG Oral 30 MG Oral (Do not (LUF/LI Tablet Tablet drive or V/SA) operate heavy machinery while taking) cefdinir cefdinir Yes 300mg 2xD orally [facility] 300 MG Oral 300 MG Oral every 12 [facility] Capsule Capsule hours (for Mem oria 10 days) l (LUF/LI V/SA) acetaminoph acetaminoph Yes [address] [facility] en 300 MG / en 300 MG / L ukes codeine codeine Memoria phosphate phosphate l 30 MG Oral 30 MG Oral (VALORIE F/LI Tablet Tablet V/SA) cefdinir cefdinir Yes 300mg 2xD [facility] 300 MG Oral 300 MG Oral L ukes Capsule Capsule Memoria l (LUF/LI V/SA) acetaminoph acetaminoph Yes 1 3xD orally [address] [facility] en 300 MG / en 300 MG / times per [facility] codeine codeine day as [facility] phosphate phosphate needed. l 30 MG Oral 30 MG Oral (Do not (LUF/LI Tablet Tablet drive or V/SA) operate heavy machinery while taking) cefdinir cefdinir Yes 300mg 2xD orally [facility] 300 MG Oral 300 MG Oral every 12 [facility] Capsule Capsule hours (for Mem oria 10 days) l (LUF/LI V/SA) acetaminoph acetaminoph Yes [address] [facility] en 300 MG / en 300 MG / L ukes codeine codeine Memoria phosphate phosphate l 30 MG Oral 30 MG Oral (VALORIE F/LI Tablet Tablet V/SA) cefdinir cefdinir Yes 300mg 2xD [facility] 300 MG Oral 300 MG Oral L ukes Capsule Capsule Memoria l (LUF/LI V/SA) acetaminoph acetaminoph Yes 1 3xD orally [address] [facility] en 300 MG / en 300 MG / times per [facility] codeine codeine day as Mem[facility] phosphate phosphate needed. l 30 MG Oral 30 MG Oral (Do not (LUF/LI Tablet Tablet drive or V/SA) operate heavy machinery while taking) cefdinir cefdinir Yes 300mg 2xD orally [facility] 300 MG Oral 300 MG Oral every 12 [facility] Capsule Capsule hours (for Mem oria 10 days) l (LUF/LI V/SA) acetaminoph acetaminoph Yes [address] [facility] en 300 MG / en 300 MG / L ukes codeine codeine Memoria phosphate phosphate l 30 MG Oral 30 MG Oral (VALORIE F/LI Tablet Tablet V/SA) cefdinir cefdinir Yes 300mg 2xD [facility] 300 MG Oral 300 MG Oral L ukes Capsule Capsule Memoria l (LUF/LI V/SA) acetaminoph acetaminoph Yes 1 3xD orally [address] [facility] en 300 MG / en 300 MG / times per [facility] codeine codeine day as Memoria phosphate phosphate needed. l 30 MG Oral 30 MG Oral (Do not (LUF/LI Tablet Tablet drive or V/SA) operate heavy machinery while taking) cefdinir cefdinir Yes 300mg 2xD orally [facility] 300 MG Oral 300 MG Oral every 12 [facility] Capsule Capsule hours (for Mem oria 10 days) l (LUF/LI V/SA) Aspirin 81 Aspirin 81 Yes [place] MG [...] Date Status Commen ts Source Name Name [id number] 2020-12-25 Completed [facility] luicla Zaldivar [id number] 00:00:00 [id number] 2020-12-25 Completed [facility] Zen [id number] 00:00:00 zoster vaccine, 2020-10-13 [facility] zoster vaccine, 2020-10-13 Completed [facility] inactivated 00:00:00 zoster vaccine, 2020-06-14 Completed [facility] inactivated 14:48:00 pneumococcal 2020-06-14 Completed [facility] 13-valent vaccine 14:48:00 hepatitis B adult 2020-06-14 Completed Memoria l [place] vaccine 14:48:00 zoster vaccine, 2020-06-14 Completed [facility] inactivated 14:48:00 pneumococcal 2020-06-14 Completed [facility] sarmiento 13-valent vaccine 14:48:00 hepatitis B adult 2020-06-14 Completed Mem[facility] l [facility] vaccine 14:48:00 [id number] 2020-04-25 Completed Jonathan rial [place] [id number] 18:12:00 <sup>1</sup> [id number] 2020-04-25 Completed Jonathan rial Zen [id number] 18:12:00 <sup>1</sup> PFIZER COVID-19 MRNA 2020-04-25 Completed [facility] VACCINATION 00:00:00 [facility] PFIZER COVID-19 MRNA 2020-04-25 Completed Meth odist VACCINATION 00:00:00 [facility] PFIZER COVID-19 MRNA 2020-04-25 Completed Meth odist VACCINATION 00:00:00 [facility] PFIZER COVID-19 MRNA 2020-04-25 Completed Meth odist VACCINATION 00:00:00 [facility] PFIZER COVID-19 MRNA 2020-04-25 Completed Meth odist VACCINATION 00:00:00 [facility] PFIZER COVID-19 MRNA 2020-04-25 Completed Meth odist VACCINATION 00:00:00 [facility] PFIZER COVID-19 MRNA 2020-04-25 Completed [facility] odist VACCINATION 00:00:00 [facility] PFIZER COVID-19 MRNA 2020-04-25 Completed [facility] odist VACCINATION 00:00:00 [facility] PFIZER COVID-19 MRNA 2020-04-25 Completed [facility] odist VACCINATION 00:00:00 [facility] PFIZER COVID-19 MRNA 2020-04-25 Completed [facility] odist VACCINATION 00:00:00 [facility] PFIZER COVID-19 MRNA 2020-04-25 Completed Meth odist VACCINATION 00:00:00 [facility] PFIZER COVID-19 MRNA 2020-04-25 Completed [facility] odist VACCINATION 00:00:00 [facility] PFIZER COVID-19 MRNA 2020-04-25 Completed [facility] odist VACCINATION 00:00:00 [facility] PFIZER COVID-19 MRNA 2020-04-25 Completed [facility] odist VACCINATION 00:00:00 [facility] PFIZER COVID-19 MRNA 2020-04-25 Completed Meth odist VACCINATION 00:00:00 [facility] PFIZER COVID-19 MRNA 2020-04-25 Completed Meth odist VACCINATION 00:00:00 [facility] PFIZER COVID-19 MRNA 2020-04-25 Completed [facility] odist VACCINATION 00:00:00 [facility] PFIZER COVID-19 MRNA 2020-04-25 Completed [facility] odist VACCINATION 00:00:00 [facility] PFIZER COVID-19 MRNA 2020-04-25 Completed [facility] odist VACCINATION 00:00:00 [facility] [id number] 2020-04-04 Completed Jonathan rial Zen [id number] 15:57:00 <sup>1</sup> [id number] 2020-04-04 Completed Jonathan rial Zen [id number] 15:57:00 <sup>2</sup> [id number] 2020-04-04 Completed Jonathan rial Zen [id number] 15:57:00 <sup>1</sup> [id number] 2020-04-04 Completed Jonathan rial [place] [id number] 15:57:00 <sup>2</sup> PFIZER COVID-19 MRNA 2020-04-04 Completed [facility] odist VACCINATION 00:00:00 [facility] PFIZER COVID-19 MRNA 2020-04-04 Completed Meth odist VACCINATION 00:00:00 [facility] PFIZER COVID-19 MRNA 2020-04-04 Completed Meth odist VACCINATION 00:00:00 [facility] PFIZER COVID-19 MRNA 2020-04-04 Completed Meth odist VACCINATION 00:00:00 [facility] PFIZER COVID-19 MRNA 2020-04-04 Completed Meth odist VACCINATION 00:00:00 [facility] PFIZER COVID-19 MRNA 2020-04-04 Completed [facility] odist VACCINATION 00:00:00 [facility] PFIZER COVID-19 MRNA 2020-04-04 Completed [facility] odist VACCINATION 00:00:00 [facility] PFIZER COVID-19 MRNA 2020-04-04 Completed Meth odist VACCINATION 00:00:00 [facility] PFIZER COVID-19 MRNA 2020-04-04 Completed Meth odist VACCINATION 00:00:00 [facility] PFIZER COVID-19 MRNA 2020-04-04 Completed Meth odist VACCINATION 00:00:00 [facility] PFIZER COVID-19 MRNA 2020-04-04 Completed Meth odist VACCINATION 00:00:00 [facility] PFIZER COVID-19 MRNA 2020-04-04 Completed Meth odist VACCINATION 00:00:00 [facility] PFIZER COVID-19 MRNA 2020-04-04 Completed Meth odist VACCINATION 00:00:00 [facility] PFIZER COVID-19 MRNA 2020-04-04 Completed Meth odist VACCINATION 00:00:00 [facility] PFIZER COVID-19 MRNA 2020-04-04 Completed Meth odist VACCINATION 00:00:00 [facility] PFIZER COVID-19 MRNA 2020-04-04 Completed Meth odist VACCINATION 00:00:00 [facility] PFIZER COVID-19 MRNA 2020-04-04 Completed Meth odist VACCINATION 00:00:00 [facility] PFIZER COVID-19 MRNA 2020-04-04 Completed Meth odist VACCINATION 00:00:00 [facility] PFIZER COVID-19 MRNA 2020-04-04 Completed [facility] odist VACCINATION 00:00:00 [facility] varicella virus 2019-04-01 Completed [facility] vaccine 17:12:00 varicella virus 2019-04-01 Completed [facility] [place] vaccine 17:12:00 measles/mumps/rubell 2019-04-01 Completed Jonathan rial [place] a virus vaccine 17:05:00 measles/mumps/rubell 2019-04-01 Completed Jonathan rial Zen a virus vaccine 17:05:00 Vital Signs Vital Name Observation Time Observation Value Comments Source Systolic blood 2022-05-05 111 mm[Hg] [facility] pressure 09:20:00 Diastolic blood 2022-05-05 72 mm[Hg] [facility] pressure 09:20:00 Heart rate 2022-05-05 84 /min [facility] 09:20:00 Body temperature 2022-05-05 36.56 Zari [facility] 09:20:00 Body height 2022-05-05 188 cm [facility] 09:20:00 Body weight 2022-05-05 105.235 kg [facility] 09:20:00 BMI 2022-05-05 29.79 kg/m2 [facility] 09:20:00 Height 2022-04-29 187.96 CM 20:08:00 Weight 2022-04-29 109 KG 20:08:00 Height 2022-04-26 187.96 CM 19:27:00 Weight 2022-04-26 105.23 KG 19:27:00 Systolic blood 2021-10-28 149 mm[Hg] [facility] pressure 13:19:00 Diastolic blood 2021-10-28 75 mm[Hg] [facility] pressure 13:19:00 Heart rate 2021-10-28 81 /min [facility] 13:19:00 Body temperature 2021-10-28 36.56 Zari [facility] 13:19:00 Body height 2021-10-28 188 cm [facility] 13:19:00 Body weight 2021-10-28 110 kg [facility] 13:19:00 BMI 2021-10-28 31.14 kg/m2 [facility] 13:19:00 [facility]17 [facility] Systolic (mm Hg) 2022-06-17 [facility] He rmann 12:22:00 Diastolic (mm Hg) 2022-06-17 [facility] H ermann 12:22:00 Height 2022-06-17 180 [facility] 12:[facility]06-17 [facility] 12:22[facility]00 BMI Calculated 2022-06-17 [facility] Herm nora 12:22:00 Pulse Rate 2022-04-29 75 /min [facility] 21:48:00 [facility] (LUF/HUANG/SA) O2% BldC Oximetry 2022-04-29 95 % [facility] 21:48:00 [facility] (LUF/HUANG/SA) BP Systolic 2022-04-29 150 mm[Hg] [facility] 21:48:00 [facility] (LUF/HUANG/SA) BP Diastolic 2022-04-29 72 mm[Hg] [facility] 21:48:00 [facility] (LUF/HUANG/SA) Body Temperature 2022-04-29 97.9 [degF] [facility] 20:08:00 [facility] (LUF/HUANG/SA) Respiratory Rate 2022-04-29 18 /min [facility] 20:08:00 [facility] (LUF/HUANG/SA) Height 2022-04-29 74 [in_i] [facility] 20:08:00 [facility] (LUF/HUANG/SA) Weight 2022-04-[address] [facility] 20:08:00 [facility] (LUF/HUANG/SA) BMI (Body Mass 2022-04-29 31.1 kg/m2 [facility] Index) 20:08:00 [facility] (LUF/HUANG/SA) Heart Rate 2022-04-26 83 /min [facility] 21:53:00 [facility] (LUF/HUANG/SA) Pulse Rate 2022-04-26 84 /min [facility] 21:53:00 [facility] (LUF/HUANG/SA) Respiratory Rate 2022-04-26 15 /min [facility] 21:53:00 [facility] (LUF/HUANG/SA) O2% BldC Oximetry 2022-04-26 92 % [facility] 21:53:00 [facility] (LUF/HUANG/SA) BP Systolic 2022-04-26 138 mm[Hg] [facility] 21:53:00 [facility] (LUF/HUANG/SA) BP Diastolic 2022-04-26 84 mm[Hg] [facility] 21:53:00 [facility] (LUF/HUANG/SA) Body Temperature 2022-04-26 98 [degF] [facility] (LUF/HUANG/SA) Height 2022-04-26 74 [in_i] [facility] 19:27:00 [facility] (LUF/HUANG/SA) Weight 2022-04-26 232 [lb_av] [facility] 19:27:00 [facility] (LUF/HUANG/SA) BMI (Body Mass 2022-04-26 30 kg/m2 [facility] Index) 19:27:00 [facility] (LUF/HUANG/SA) Respitory Rate 2021-07-23 [facility] Herm nora 13:08:00 Systolic (mm Hg) 2021-07-23 [facility] rmann 13:08:00 Diastolic (mm Hg) 2021-07-23 [facility] ermann 13:08:00 Heart Rate 2021-07-23 [facility] Oni n 12:50:00 Respitory Rate 2021-07-23 [facility] Herm nora 12:50:00 Systolic (mm Hg) 2021-07-23 [facility] rmann 12:50:00 Diastolic (mm Hg) 2021-07-23 [facility] ermann 12:50:00 Heart Rate 2021-07-23 [facility] Oni n 12:40:00 Respitory Rate 2021-07-23 [facility] nora 12:40:00 Systolic (mm Hg) 2021-07-23 [facility] Ld rmann 12:40:00 Diastolic (mm Hg) 2021-07-23 [facility] Tolu ermann 12:40:00 Temperature Oral 2021-07-23 36.3 Zari [facility] Ld rmann (F) 12:30:00 Heart Rate 2021-07-23 Bebeto Ruizan n 12:30:00 Temperature Oral 2021-07-23 36.7 Zari [facility] Ld rmann (F) 11:18:00 Height 2021-07-23 182.88 cm Bebeto Ruizan n 11:18:00 Weight 2021-07-23 Bebeto Oni n 11:18:00 Height 2021-07-22 182.88 cm Bebeto Ruizan n 18:07:00 Weight 2021-07-22 Bebeto Oni n 18:07:00 Systolic (mm Hg) 2021-07-02 [facility] Ld rmann 18:31:00 Diastolic (mm Hg) 2021-07-02 [facility] Tolu ermann 18:31:00 Heart Rate 2021-07-02 Bebeto Ruizan n 18:31:00 Respitory Rate 2021-07-02 Bebeto Herm nora 18:31:00 Height 2021-07-02 180.34 cm Bebeto Ruizan n 18:31:00 Weight 2021-07-02 Bebeto Oni n 18:31:00 BMI Calculated 2021-07-02 [facility] Herm nora 18:31:00 Systolic blood 2021-05-24 137 mm[Hg] [facility] 16:24:36 Hospital Diastolic blood 2021-05-24 85 mm[Hg] [facility] pressure 16:24:36 Hospital Heart rate 2021-05-24 70 /min [facility] 16:24:36 Hospital Body temperature 2021-05-24 35.89 Zari [facility] 16:24:36 Hospital Respiratory rate 2021-05-24 18 /min [facility] 16:24:36 Hospital Oxygen saturation 2021-05-24 98 /min [facility] in Arterial blood 16:24:36 Hospital by Pulse oximetry Body height 2021-05-20 188 cm [facility] 22:57:00 Hospital Body weight 2021-05-20 105.4 kg [facility] 22:57:00 Hospital BMI 2021-05-20 29.83 kg/m2 [facility] 22:57:00 Hospital Height 2021-05-09 185.42 cm [facility] Oni n 13:53:00 Weight 2021-05-09 [facility] Oni n 13:53:00 BMI Calculated 2021-05-09 [facility] Joseph nora 13:53:00 Heart Rate 2021-04-08 [facility] Oni n 18:21:00 Systolic (mm Hg) 2021-04-08 [facility] rmann 18:21:00 Diastolic (mm Hg) 2021-04-08 [facility] ermann 18:21:00 Height 2021-04-08 182 cm [facility] Oni n 18:21:00 Weight 2021-04-08 [facility] Oni n 18:21:00 BMI Calculated 2021-04-08 [facility] Joseph nora 18:21:00 Systolic (mm Hg) 2021-02-06 [facility] rmann 16:01:00 Diastolic (mm Hg) 2021-02-06 [facility] ermann 16:01:00 Heart Rate 2021-02-06 [facility] Oni n 16:01:00 Respitory Rate 2021-02-06 [facility] Joseph nora 16:01:00 Temperature Oral 2021-02-06 97.9 F [facility] rmann (F) 16:01:00 Height 2021-02-06 180.3 cm [facility] Oni n 16:01:00 Weight 2021-02-06 [facility] Oni n 16:01:00 BMI Calculated 2021-02-06 [facility] Joseph nora 16:01:00 Oxygen saturation 2020-09-20 96 /min [facility] Arterial blood 21:18:00 Hospital by Pulse oximetry Heart rate 2020-09-20 69 /min [facility] 21:16:00 Hospital Respiratory rate 2020-09-20 18 /min [facility] 21:16:00 Hospital Systolic blood 2020-09-20 111 mm[Hg] [facility] pressure 20:34:00 Hospital Diastolic blood 2020-09-20 54 mm[Hg] [facility] pressure 20:34:00 Hospital Body temperature 2020-09-20 37.17 Zari [facility] 16:58:17 Hospital Body weight 2020-09-20 109.272 kg [facility] 09:42:21 Hospital BMI 2020-09-20 30.93 kg/m2 [facility] 09:42:21 Hospital Body height 2020-07-20 188 cm [facility] 12:39:00 Hospital Systolic (mm Hg) 2020-06-14 [facility] rmann 12:58:00 Diastolic (mm Hg) 2020-06-14 [facility] ermann 12:58:00 Heart Rate 2020-06-14 [facility] Oni n 12:58:00 Height 2020-06-14 187.96 cm [facility] Oni n 12:58:00 Weight 2020-06-14 [facility] Oni n 12:58:00 BMI Calculated 2020-06-14 [facility]a 12:58:00 Systolic (mm Hg) 2020-04-25 [facility] rmann 19:27:00 Diastolic (mm Hg) 2020-04-25 [facility] ermann 19:27:00 Heart Rate 2020-04-25 [facility] Oni n 19:27:00 Respitory Rate 2020-04-25 [facility] Herm nora 19:27:00 Temperature Oral 2020-04-25 97.0 F [facility] rmann (F) 19:27:00 Height 2020-04-25 [facility] 19:27[facility]00 Weight 2020-04-25 [facility] Oni n 19:27:00 BMI Calculated 2020-04-25 [facility] Herm nora 19:27:00 Heart Rate 2020-04-23 56 /min Location: [facility] 17:10:00 Brachial Artery; Systolic blood 2020-04-23 186 mm[Hg] [facility] pressure 17:10:00 Position: Sitting Diastolic blood 2020-04-23 82 mm[Hg] [facility] 17:10:00 Position: Sitting Body height 2020-04-23 74 [in_us] [facility] 17:10:00 Weight 2020-04-23 240 [lb_av] [facility] 17:10:00 Body mass index 2020-04-23 30.81 kg/m2 [facility] (BMI) [Ratio] 17:10:00 Body temperature 2020-04-23 97.4 [degF] Method: [facility] 17:10:00 Temporal Systolic (mm Hg) 2020-04-04 [facility] rmann 13:41:00 Diastolic (mm Hg) 2020-04-04 [facility] ermann 13:41:00 Heart Rate 2020-04-04 [facility] n 13:41:00 Respitory Rate 2020-04-04 [facility] nora 13:41:00 Height 2020-04-04 182 cm [facility]i n 13:41:00 Weight 2020-04-04 [facility] n 13:41:00 BMI Calculated 2020-04-04 [facility] nora 13:41:00 Systolic blood 2019-10-24 136 mm[Hg] [facility] 17:12:00 Position: Sitting Diastolic blood 2019-10-24 71 mm[Hg] [facility] 17:12:00 Position: Sitting Body height 2019-10-24 74 [in_us] [facility] 17:12:00 Weight 2019-10-24 250 [lb_av] [facility] 17:12:00 Body mass index 2019-10-24 32.1 kg/m2 [facility] (BMI) [Ratio] 17:12:00 Heart Rate 2019-10-24 60 /min Location: [facility] 17:12:00 Brachial Artery; Body temperature 2019-10-24 97.8 [degF] Method: [facility] 17:12:00 Temporal Systolic (mm Hg) 2019-04-27 [facility] He rmann [...] 13:35:00 Temperature Oral 2018-08-20 97.6 F [facility] rmann (F) 13:35:00 Height 2018-08-20 182.88 cm [...] ermann 19:32:00 Temperature Oral 2016-11-03 98.2 F Bebeto Jaffe rmann (F) 19:32:00 Heart Rate 2016-11-03 [facility] n 19:32:00 Weight 2016-11-03 [facility] 15:02:00 BMI Calculated 2016-11-03 [facility] nora 15:02:00 Height 2016-11-03 187.96 cm [facility] 15:02:00 Temperature Oral 2016-11-03 98.0 F [facility] Ld rmann (F) 15:02:00 Systolic (mm Hg) 2015-09-10 [facility] 21:29:00 Diastolic (mm Hg) 2015-09-10 [facility] ermann 21:29:00 Temperature Oral 2015-09-10 98.1 F [facility] L[facility] rmann (F) 21:29:00 Heart Rate 2015-09-10 [facility] n 21:29:00 Respitory Rate 2015-09-10 [facility] 21:29:00 Temperature Oral 2015-09-10 97.7 F [facility] (F) 17:44:00 Respitory Rate 2015-09-10 [facility] 17:44:00 Heart Rate 2015-09-10 [facility] 17:44:00 Systolic (mm Hg) 2015-09-10 [facility] 17:44:00 Diastolic (mm Hg) 2015-09-10 [facility] 17:44:00 Systolic (mm Hg) 2015-06-20 [facility] 20:50:00 Diastolic (mm Hg) 2015-06-20 [facility] 20:50:00 Respitory Rate 2015-06-20 [facility] 20:50:00 Temperature Oral 2015-06-20 98.6 F [facility] (F) 20:50:00 Systolic (mm Hg) 2015-06-20 [facility] 18:31:00 Diastolic (mm Hg) 2015-06-20 [facility] 18:31:00 Respitory Rate 2015-06-20 [facility] 18:31:00 Respitory Rate 2015-06-20 [facility] 18:30:00 Systolic (mm Hg) 2015-06-20 Bebeto Jaffe rmann 17:24:00 Diastolic (mm Hg) 2015-06-20 Bebeto Motley ermann 17:24:00 Temperature Oral 2015-06-20 97.7 F Bebeto Jaffe rmann (F) 15:10:00 Weight 2015-06-20 Bebeto Bunn n 15:10:00 Heart Rate 2015-06-20 Bebeto Bunn n 15:10:00 Procedures Procedure Date / Time Performing Source Performed Clinician MR LUMBAR SPINE WO CONTRAST 2022-07-09 Requisition, Paper [facility] 14:42:49 [facility] AGREEMENTS AUTHORIZATIONS AND 2022-07-09 [facility]FORM 05:01:00 [place] [facility] 2000) Branch POCT URINALYSIS W/O SCOPE 2022-05-05 Carmelina, [facility] 23:16:00 PSA, TOTAL AND FREE 2022-05-05 Carmelina, [facility] 14:31:00 TESTOSTERONE, FREE, TOTAL 2022-05-05 Carmelina, [facility] 14:31:00 URINE CULTURE 2022-05-05 Carmelina, [facility] 14:31:00 VITAMIN D 25 HYDROXY 2022-05-05 Carmelina, [facility] 14:31:00 POCT URINALYSIS W/O SCOPE 2021-10-28 Carmelina, [facility] 22:11:00 ESOPHAGOGASTRODUODENOSCOPY 2021-07-23 Memor santhosh Zaldivar W/BIOPSY [id number] (N/A)<sup>1</sup> 12:27:00 CBC WITH PLATELET AND 2021-05-24 David Gonzalez DIFFERENTIAL 08:24:00 Hospital BASIC METABOLIC PANEL 2021-05-24 David Gonzalez 08:24:00 Hospital MAGNESIUM LEVEL 2021-05-24 David Gonzalez 08:24:00 Hospital PHOSPHORUS LEVEL 2021-05-24 David Gonzalez 08:24:00 Hospital ESTIMATED GFR 2021-05-24 David Gonzalez 08:24:00 Hospital SURGICAL PATHOLOGY REQUEST 2021-05-23 David Gonzalez [facility] 20:46:00 Hospital FL ESOPHAGRAM SINGLE CONTRAST 2021-05-23 [facility] 20:20:45 [facility] ESOPHAGOGASTRODUODENOSCOPY (EGD) 2021-05-23 C[facility] Toro [facility] 17:37:00 [facility] CBC WITH PLATELET AND 2021-05-23 Lisa, Omrachel [facility] DIFFERENTIAL 09:35:00 [facility] BASIC METABOLIC PANEL 2021-05-23 BrynnDavdi [facility] 09:35:00 Hospital MAGNESIUM LEVEL 2021-05-23 [facility] 09:35:00 Hospital PHOSPHORUS LEVEL 2021-05-23 [facility], [facility] 09:35:00 Hospital ESTIMATED GFR 2021-05-23 [facility] 09:[facility]00 [facility] NM HEPATOBILIARY W PHARM 2021-05-22 Jaret Decker [facility] 15:49:11 [place] [address] ANTI-SPIKE IGG 2021-05-22 Zenia Navarro ist ANTIBODY TITER 09:37:00 [facility] CBC WITH PLATELET AND 2021-05-22 [facility] 09:37:00 [facility] BASIC METABOLIC PANEL 2021-05-22 Jaret Decker ist 09:37:00 [facility] TROPONIN T 2021-05-22 [facility] 09:37:00 [place] [address] SEROLOGY PATIENT 2021-05-22 Zenia Navarro odist SURVEILLANCE 09:37:00 [facility] HEPATITIS B SURFACE ANTIGEN 2021-05-22 Ned Velasquez odist 09:37:00 [facility] HEPATITIS B SURFACE AB, 2021-05-22 Ned Velasquezis t QUANTITATIVE 09:37:00 [facility] HEPATITIS B SURFACE ANTIBODY 2021-05-22 Ned Velasquez [facility] 09:37:00 Hospital ESTIMATED GFR 2021-05-22 Jaret Decker [facility] 09:37:00 [facility] AEROBIC CULTURE 2021-05-22 Giancarlo Mansfield [facility] 03:08:00 Hospital ANAEROBIC CULTURE 2021-05-22 Giancarlo Mansfield 03:08:00 Hospital GRAM STAIN 2021-05-22 Giancarlo Mansfield 03:08:00 Hospital CELL COUNT AND DIFFERENTIAL, BODY 2021-05-22 Giancarlo Mansfield FLUID 03:08:00 [facility] US ABDOMEN COMPLETE 2021-05-21 Jaret Decker t 20:31:16 [facility] POC GLUCOSE 2021-05-21 Jaret Decker 16:30:[address] [facility] [address] CHEST WO CONTRAST 2021-05-21 Robb Barry 14:33:49 [facility] LACTIC ACID LEVEL, SEPSIS - NOW 2021-05-21 Giancarlo Mansfield AND REPEAT 2X EVERY 3 HOURS 08:50:00 Hosp ital CBC WITH PLATELET AND 2021-05-21 Giancarlo Mansfield DIFFERENTIAL 08:50:00 Hospital PROTHROMBIN TIME WITH INR 2021-05-21 Giancarlo Mansfield ist 08:50:00 Hospital COMPREHENSIVE METABOLIC PANEL 2021-05-21 Giacnarlo Mansfield thodist 08:50:00 Hospital ESTIMATED GFR 2021-05-21 Giancarlo Mansfield 08:50:00 Hospital LACTIC ACID LEVEL, SEPSIS - NOW 2021-05-21 Giancarlo Mansfield AND REPEAT 2X EVERY 3 HOURS 05:12:00 Hosp ital TROPONIN T 2021-05-21 Giancarlo Mansfield 05:12:00 Hospital PROCALCITONIN 2021-05-21 Giancarlo Mansfield 05:12:[address] ABDOMEN PELVIS WO CONTRAST 2021-05-21 Gus Jackson [facility] 04:00:38 Hospital BLOOD CULTURE, AEROBIC & 2021-05-21 Jackson, Gus [facility] ANAEROBIC 02:47:00 Hospital TROPONIN [...] SCREEN CULTURE 2021-05-20 Gus Jackson 23:46:00 Hospital RESPIRATORY PATHOGEN PANEL WITH 2021-05-20 Gus Jackson COVID-19 RT-PCR 23:42:00 Hospital CBC WITH PLATELET AND 2021-05-20 Gus Jackson DIFFERENTIAL 23:42:00 Hospital COMPREHENSIVE METABOLIC PANEL 2021-05-20 Gus Jackson thodist 23:42:00 Hospital LIPASE LEVEL 2021-05-20 Gus Jackson 23:42:00 Hospital TROPONIN T 2021-05-20 Giancarlo Mansfield 23:42:00 Hospital B NATRIURETIC PEPTIDE 2021-05-20 Gus Jackson 23:42:00 Hospital ESTIMATED GFR 2021-05-20 Gus Jackson 23:42:00 Hospital ECG 12-LEAD 2021-05-20 Giancarlo Mansfield 23:37:03 Hospital URINE CULTURE 2021-05-20 Gus Jackson 23:34:00 Hospital ECG ED PRELIMINARY INTERPRETATION 2021-05-20 Gus Jackson 23:32:47 [facility] HEPATITIS B SURFACE ANTIBODY 2020-09-20 Jeremy Cool ethodist 06:49:00 Hospital HEPATITIS B SURFACE ANTIGEN 2020-09-20 Jeremy Cool [facility]odist 06:49:00 Hospital AEROBIC CULTURE 2020-09-19 [place] 23:57:00 Hospital ANAEROBIC CULTURE 2020-09-19 Mel[place]ina [place] 23:57:00 Hospital GRAM STAIN 2020-09-19 Melvina [place] 23:57:00 Hospital CELL COUNT AND DIFFERENTIAL, BODY 2020-09-19 Royce Park [facility] FLUID 23:56:00 Hospital HEPATITIS B SURFACE AB, 2020-09-[address] QUANTITATIVE 22:25:00 Hospital TROPONIN 2020-09-19 Maryan Oneill [facility] 22:25:[address] LUMBAR SPINE WO CONTRAST 2020-09-19 Maryan Oneill M ethodist 18:46:23 Hospital XR CHEST 1 VW PORTABLE 2020-09-19 Maryan Oneill Method ist 18:00:32 Hospital ECG 12-LEAD 2020-09-19 Maryan Oneill [facility] 17:57:30 Hospital HC COMPLETE BLD COUNT W/AUTO DIFF 2020-09-19 Ludmila Oneill [facility] 17:44:00 Hospital COMPREHENSIVE METABOLIC PANEL 2020-09-19 Maryan Oneill [facility] 17:44:00 Hospital CREATINE KINASE, TOTAL (CPK) 2020-09-19 Maryan Oneill [facility] 17:44:00 Hospital TROPONIN 2020-09-19 Maryan Oneill [facility] 17:44:00 Hospital LIPASE LEVEL 2020-09-19 Maryan Oneill [facility] 17:44:00 Hospital B NATRIURETIC PEPTIDE 2020-09-[address] 17:44:00 Hospital ESTIMATED GFR 2020-09-19 Maryan Oneill [facility] 17:44:00 Hospital ECG ED PRELIMINARY INTERPRETATION 2020-09-19 Ludmila Oneill [facility] 17:27:13 Hospital HC COMPLETE BLD COUNT W/AUTO DIFF 2020-07-25 Jazmyn Torres 08:23:00 Hospital PROTHROMBIN TIME WITH INR 2020-07-25 Jazmyn Torres ist 08:23:00 [facility] COMPREHENSIVE METABOLIC PANEL 2020-07-25 Jazmyn Torres thodist 08:23:00 Hospital MAGNESIUM LEVEL 2020-07-25 Jazmyn Torresist 08:23:00 Hospital PHOSPHORUS LEVEL 2020-07-25 Jazmyn Torres 08:23:00 Hospital ESTIMATED GFR 2020-07-25 Jazmyn Torresist 08:23:[address] ABDOMEN PELVIS WO CONTRAST 2020-07-25 Jazmyn Torres thodist 01:22:52 [facility] COVID-19 QUALITATIVE RT-PCR 2020-07-24 Brittni Del Valle thodist 07:34:00 [facility] URINE CULTURE 2020-07-24 Brittni Del Valle 06:38:00 [facility] URINALYSIS SCREEN AND MICROSCOPY, 2020-07-24 Brent Del Valle WITH REFLEX TO CULTURE 06:38:00 [facility] COMPREHENSIVE METABOLIC PANEL 2020-07-24 Brittni Del Valle 06:35:00 [facility] HC COMPLETE BLD COUNT W/AUTO DIFF 2020-07-24 Brent Del Valle 06:35:00 [facility] PROTHROMBIN TIME WITH INR 2020-07-24 Brittni Del Valle odist 06:35:00 [facility] PARTIAL THROMBOPLASTIN TIME (PTT) 2020-07-24 Brnet Del Valle 06:35:00 [facility] ESTIMATED GFR 2020-07-24 Brittni Del Valle 06:35:00 [facility] HI AN ELECTIVE ENDOTRACHEAL 2020-07-23 Isabelle Wetzel [facility] 16:20:31 Hospital REMOVAL, CATHETER, DIALYSIS, 2020-07-23 Dominique Nelson PERITONEAL 16:03:00 E. Hospital ESTIMATED GFR 2020-07-23 Dominique Nelson 13:54:00 E. Hospital POC PANEL 2020-07-23 Dominique Nelson 13:54:00 E. Hospital ESTIMATED GFR 2020-07-23 Dominique Nelson 13:43:00 E. Hospital POC PANEL 2020-07-23 Dominique Nelson 13:43:00 E. Hospital COMPREHENSIVE METABOLIC PANEL 2020-07-23 Isabelle Wetzel 13:30:00 Hospital ABO AND RH CONFIRMATION 2020-07-23 Dominique Nelsono dist 13:30:00 E. Hospital ESTIMATED GFR 2020-07-23 Isabelle Wetzel 13:30:00 Hospital COVID-19 QUALITATIVE RT-PCR 2020-07-20 Dominique Nelson 13:14:00 E. Hospital TYPE AND SCREEN 2020-07-20 Violette Forbes 13:14:00 Hospital HC COMPLETE BLD COUNT W/AUTO DIFF 2020-07-20 Link Forbes se 13:14:00 Hospital HEMOGLOBIN A1C 2020-07-20 Violette Forbes 13:14:00 Hospital BASIC METABOLIC PANEL 2020-07-12 Dominique Nelson 09:00:00 E. Hospital MAGNESIUM LEVEL 2020-07-12 Dominique Nelson 09:00:00 E. Hospital PHOSPHORUS LEVEL 2020-07-12 Dominique Nelson 09:00:00 E. Hospital HC COMPLETE BLD COUNT W/AUTO DIFF 2020-07-12 Kevin Nelson 09:00:00 E. Hospital PARATHYROID HORMONE 2020-07-12 Dominique Nelson 09:00:00 E. Hospital VITAMIN D 25 HYDROXY LEVEL 2020-07-12 Dominique Nelson thodist 09:00:00 E. Hospital ESTIMATED GFR 2020-07-12 Dominique Nelson 09:00:00 E. Hospital HI AN ELECTIVE ENDOTRACHEAL 2020-07-12 Megan Felix [facility] 01:07:00 [facility] LAPAROSCOPIC REMOVAL OR 2020-07-11 Dominique Nelson dist REPOSITIONING OF PERITONEAL 22:54:00 E. Hosp ital DIALYSIS CATHETER HC COMPLETE BLD COUNT W/AUTO DIFF 2020-07-11 Kieran Aquino 10:12:00 Hospital COMPREHENSIVE METABOLIC PANEL 2020-07-11 Constantin Aquino 10:12:00 Hospital MAGNESIUM LEVEL 2020-07-11 Mariajose Donato 10:12:00 [facility] PHOSPHORUS LEVEL 2020-07-11 Mariajose Donato 10:12:00 [facility] ESTIMATED GFR 2020-07-11 Constantin Aquino 10:12:00 Hospital XR ABDOMEN 1 VW 2020-07-11 Dominique Nelson 00:50:58 E. Hospital COVID-19 QUALITATIVE RT-PCR 2020-07-10 Constantin Aquino thodist 19:54:00 Hospital XR CHEST 1 VW PORTABLE [...] 18:10:00 Hospital B NATRIURETIC PEPTIDE 2020-07-10 Constantin Aquino t 18:10:00 [facility] ESTIMATED GFR 2020-07-10 Constantin Aquino 18:10:00 Hospital CREATINE KINASE, TOTAL (CPK) 2020-07-10 Constantin Aquino M ethodist 18:10:[address] Abdomen/Pelvis w/wo contrast 2019-10-24 [facility] [id number] 00:00:00 CT Chest wo contrast [id number] 2019-10-24 [facility] 00:[facility]:00 Complex cystometrogram (ie, 2019-04-27 Jonathan rial [place] calibrated electronic equipment); 16:16:00 with voiding pressure studies (ie, bladder voiding pressure) and urethral pressure profile studies (ie, urethral closure pressure profile), any technique Electromyography studies (EMG) of 2019-04-27 [facility] [place] anal or urethral sphincter, other 16:16:00 than needle, any technique Cystourethroscopy (separate 2019-04-27 Jonathan rial [facility] procedure) 16:16:00 Injection procedure for 2019-04-27 [facility] cystography or voiding 16:16:00 urethrocystography Voiding pressure studies, 2019-04-27 [facility] intra-abdominal (ie, rectal, 16:16:00 gastric, intraperitoneal) (List separately in addition to code for primary procedure) Complex uroflowmetry (eg, 2019-04-27 [facility] calibrated electronic equipment) 16:16:00 Measurement of post-voiding 2019-04-27 Jonathan rial [facility] residual urine and/or bladder 16:15:00 capacity by ultrasound, non-imaging Aortic aneurysm repair 2015-06-01 [facility] 05:00:00 Esophagogastroduodenoscopy [facility] Colonoscopy [facility] AAA - Repair of abdominal aortic [facility] aneurysm using bifurcation graft History of Abdominal aortic [facility] aneurysm repair Plan of Care Planned Activity Planned Date Details Comments Source Future Scheduled 2022-08-08 Screening for [facility] Test 01:18:30 malignant neoplasm of colon (procedure) [code = 099808897] Future Scheduled 2022-08-08 Screening for [facility] Test 01:18:30 malignant neoplasm of colon (procedure) [code = [id number]] Future Scheduled 2022-08-08 Screening for [facility] Test 01:18:30 malignant neoplasm of colon (procedure) [code = 890962542] Future Scheduled 2022-08-08 Hepatitis C screening [facility] Test 01:18:30 (procedure) [code = 328051772] Future Scheduled 2022-08-08 Screening for [facility] Test 01:18:30 malignant neoplasm of colon (procedure) [code = 555032551] Future Scheduled 2022-08-08 Screening for [facility] Test 01:18:30 malignant neoplasm of colon (procedure) [code = 947798816] Future Scheduled 2022-08-08 SHINGLES VACCINES (1 Met [facility] Test 01:18:30 of 2) [code = SHINGLES VACCINES (1 of 2)] Future Scheduled 2022-08-08 HEPATITIS B VACCINES Met [facility] Test 01:18:30 (1 of 3 - Risk 3-dose series) [code = HEPATITIS B VACCINES (1 of 3 - Risk 3-dose series)] Future Scheduled 2022-08-08 [address] [facility] Test 01:18:30 VACCINE (2 - PPSV23 if available, else PCV20) [code = 65+ PNEUMOCOCCAL VACCINE (2 - PPSV23 if available, else PCV20)] Future Scheduled 2022-08-08 COVID-19 VACCINE (4 - [facility] Test 01:18:30 Pfizer series) [code = COVID-19 VACCINE (4 - Pfizer series)] Future Scheduled 2022-08-08 INFLUENZA VACCINE [facility] Test 01:18:30 [code = INFLUENZA VACCINE] Future Scheduled 2022-08-01 Hepatitis C screening [facility] Test 12:51:59 (procedure) [code = [id number]] Future Scheduled 2022-08-01 COLONOSCOPY SCREENING [facility] Test 12:51:59 [code = COLONOSCOPY SCREENING] Future Scheduled 2022-08-01 SHINGLES VACCINES (1 Met [facility] Test 12:51:59 of 2) [code = SHINGLES VACCINES (1 of 2)] Future Scheduled 2022-08-01 HEPATITIS B VACCINES Met [facility] Test 12:51:59 (1 of 3 - Risk 3-dose series) [code = HEPATITIS B VACCINES (1 of 3 - Risk 3-dose series)] Future Scheduled 2022-08-01 65[facility] 12:51:59 VACCINE (2 - PPSV23 if available, else PCV20) [code = 65+ PNEUMOCOCCAL VACCINE (2 - PPSV23 if available, else PCV20)] Future Scheduled 2022-08-01 COVID-19 VACCINE (4 - [facility] Test 12:51:59 Booster for Pfizer series) [code = COVID-19 VACCINE (4 - Booster for Pfizer series)] Future Scheduled 2022-08-01 INFLUENZA VACCINE Method [facility] Test 12:51:59 [code = INFLUENZA VACCINE] Future Scheduled 2022-08-01 Hepatitis C screening [facility] Test 12:51:59 (procedure) [code = 567453554] Future Scheduled 2022-08-01 COLONOSCOPY SCREENING [facility] Test 12:51:59 [code = COLONOSCOPY SCREENING] Future Scheduled 2022-08-01 SHINGLES VACCINES (1 Met [facility] Test 12:51:59 of 2) [code = SHINGLES VACCINES (1 of 2)] Future Scheduled 2022-08-01 HEPATITIS B VACCINES Met [facility] Test 12:51:59 (1 of 3 - Risk 3-dose series) [code = HEPATITIS B VACCINES (1 of 3 - Risk 3-dose series)] Future Scheduled 2022-08-01 65+ [facility] 12:51:59 VACCINE (2 - PPSV23 if available, else PCV20) [code = 65+ PNEUMOCOCCAL VACCINE (2 - PPSV23 if available, else PCV20)] Future Scheduled 2022-08-01 COVID-19 VACCINE (4 - [facility] Test 12:51:59 Booster for Pfizer series) [code = COVID-19 VACCINE (4 - Booster for Pfizer series)] Future Scheduled 2022-08-01 INFLUENZA VACCINE Method [facility] Test 12:51:59 [code = INFLUENZA VACCINE] Future Scheduled 2022-06-27 Hepatitis C screening [facility] Test 04:13:42 (procedure) [code = 089843535] Future Scheduled 2022-06-27 COLONOSCOPY SCREENING [facility] Test 04:13:42 [code = COLONOSCOPY SCREENING] Future Scheduled 2022-06-27 SHINGLES VACCINES (1 Met [facility] Test 04:13:42 of 2) [code = SHINGLES VACCINES (1 of 2)] Future Scheduled 2022-06-27 HEPATITIS B VACCINES Met [facility] Test 04:13:42 (1 of 3 - Risk 3-dose series) [code = HEPATITIS B VACCINES (1 of 3 - Risk 3-dose series)] Future Scheduled 2022-06-27 65+ [facility] 04:13:42 VACCINE (2 - PPSV23 if available, else PCV20) [code = 65+ PNEUMOCOCCAL VACCINE (2 - PPSV23 if available, else PCV20)] Future Scheduled 2022-06-27 COVID-19 VACCINE (4 - [facility] Test 04:13:42 Booster for Pfizer series) [code = COVID-19 VACCINE (4 - Booster for Pfizer series)] Future Scheduled 2022-06-27 INFLUENZA VACCINE Method [facility] Test 04:13:42 [code = INFLUENZA VACCINE] Future Scheduled 2022-06-16 Hepatitis C screening [facility] Test 09:06:34 (procedure) [code = 074039948] Future Scheduled 2022-06-16 COLONOSCOPY SCREENING [facility] Test 09:06:34 [code = COLONOSCOPY SCREENING] Future Scheduled 2022-06-16 SHINGLES VACCINES (1 Met [facility] Test 09:06:34 of 2) [code = SHINGLES VACCINES (1 of 2)] Future Scheduled 2022-06-16 HEPATITIS B VACCINES Met [facility] Test 09:06:34 (1 of 3 - Risk 3-dose series) [code = HEPATITIS B VACCINES (1 of 3 - Risk 3-dose series)] Future Scheduled 2022-06-16 COVID-19 VACCINE (4 - [facility] Test 09:06:34 Booster for Pfizer series) [code = COVID-19 VACCINE (4 - Booster for Pfizer series)] Future Scheduled 2022-06-16 65+ [facility]OCCAL [facility] 09:06:34 VACCINE (2 - PPSV23 if available, else PCV20) [code = 65+ PNEUMOCOCCAL VACCINE (2 - PPSV23 if available, else PCV20)] Future Scheduled 2022-06-16 INFLUENZA VACCINE [facility] 09:06:34 [code = INFLUENZA VACCINE] Future Scheduled 2022-06-16 Hepatitis C screening [facility] Test 09:06:34 (procedure) [code = [id number]] Future Scheduled 2022-06-16 COLONOSCOPY SCREENING [facility] Test 09:06:34 [code = COLONOSCOPY SCREENING] Future Scheduled 2022-06-16 SHINGLES VACCINES (1 Met [facility] Test 09:06:34 of 2) [code = SHINGLES VACCINES (1 of 2)] Future Scheduled 2022-06-16 HEPATITIS B VACCINES Met [facility] Test 09:06:34 (1 of 3 - Risk 3-dose series) [code = HEPATITIS B VACCINES (1 of 3 - Risk 3-dose series)] Future Scheduled 2022-06-16 COVID-19 VACCINE (4 - [facility] Test 09:06:34 Booster for Pfizer series) [code = COVID-19 VACCINE (4 - Booster for Pfizer series)] Future Scheduled 2022-06-16 65+ P[facility]UMOCOCCAL [facility] Test 09:06:34 VACCINE (2 - PPSV23 if available, else PCV20) [code = 65+ PNEUMOCOCCAL VACCINE (2 - PPSV23 if available, else PCV20)] Future Scheduled 2022-06-16 INFLUENZA VACCINE [facility] Test 09:06:34 [code = INFLUENZA VACCINE] Future Scheduled 2022-06-16 Hepatitis C screening [facility] Test 09:06:34 (procedure) [code = [id number]] Future Scheduled 2022-06-16 COLONOSCOPY SCREENING [facility] Test 09:06:34 [code = COLONOSCOPY SCREENING] Future Scheduled 2022-06-16 SHINGLES VACCINES (1 Met [facility] Test 09:06:34 of 2) [code = SHINGLES VACCINES (1 of 2)] Future Scheduled 2022-06-16 HEPATITIS B VACCINES Met [facility] Test 09:06:34 (1 of 3 - Risk 3-dose series) [code = HEPATITIS B VACCINES (1 of 3 - Risk 3-dose series)] Future Scheduled 2022-06-16 COVID-19 VACCINE (4 - Me [facility] Test 09:06:34 Booster for Pfizer series) [code = COVID-19 VACCINE (4 - Booster for Pfizer series)] Future Scheduled 2022-06-16 65+ [facility] 09:06:34 VACCINE (2 - PPSV23 if available, else PCV20) [code = 65+ PNEUMOCOCCAL VACCINE (2 - PPSV23 if available, else PCV20)] Future Scheduled 2022-06-16 INFLUENZA VACCINE Method [facility] Test 09:06:34 [code = INFLUENZA VACCINE] Future Scheduled 2022-06-06 Hepatitis C screening [facility] Test 01:51:15 (procedure) [code = [id number]] Future Scheduled 2022-06-06 COLONOSCOPY SCREENING [facility] Test 01:51:15 [code = COLONOSCOPY SCREENING] Future Scheduled 2022-06-06 SHINGLES VACCINES (1 Met [facility] Test 01:51:15 of 2) [code = SHINGLES VACCINES (1 of 2)] Future Scheduled 2022-06-06 HEPATITIS B VACCINES Met [facility] Test 01:51:15 (1 of 3 - Risk 3-dose series) [code = HEPATITIS B VACCINES (1 of 3 - Risk 3-dose series)] Future Scheduled 2022-06-06 COVID-19 VACCINE (4 - [facility] Test 01:51:15 Booster for Pfizer series) [code = COVID-19 VACCINE (4 - Booster for Pfizer series)] Future Scheduled 2022-06-06 65+ [facility] 01:51:15 VACCINE (2 - PPSV23 if available, else PCV20) [code = 65+ PNEUMOCOCCAL VACCINE (2 - PPSV23 if available, else PCV20)] Future Scheduled 2022-06-06 INFLUENZA VACCINE Method [facility] Test 01:51:15 [code = INFLUENZA VACCINE] Future Scheduled 2022-03-07 Hepatitis C screening [facility] Test 15:16:29 (procedure) [code = [id number]] Future Scheduled 2022-03-07 COLONOSCOPY SCREENING [facility] Test 15:16:29 [code = COLONOSCOPY SCREENING] Future Scheduled 2022-03-07 SHINGLES VACCINES (1 Met [facility] Test 15:16:29 of 2) [code = SHINGLES VACCINES (1 of 2)] Future Scheduled 2022-03-07 HEPATITIS B VACCINES Met [facility] Test 15:16:29 (1 of 3 - Risk 3-dose series) [code = HEPATITIS B VACCINES (1 of 3 - Risk 3-dose series)] Future Scheduled 2022-03-07 COVID-19 VACCINE (4 - Me [facility] Test 15:16:29 Booster for Pfizer series) [code = COVID-19 VACCINE (4 - Booster for Pfizer series)] Future Scheduled 2022-03-07 65[facility] 15:16:29 VACCINE (2 - PPSV23 if available, else PCV20) [code = 65+ PNEUMOCOCCAL VACCINE (2 - PPSV23 if available, else PCV20)] Future Scheduled 2022-03-07 INFLUENZA VACCINE Method [facility] Test 15:16:29 [code = INFLUENZA VACCINE] Future Scheduled 2022-03-07 Hepatitis C screening [facility] Test 15:16:29 (procedure) [code = [id number]] Future Scheduled 2022-03-07 COLONOSCOPY SCREENING [facility] Test 15:16:29 [code = COLONOSCOPY SCREENING] Future Scheduled 2022-03-07 SHINGLES VACCINES (1 Met [facility] Test 15:16:29 of 2) [code = SHINGLES VACCINES (1 of 2)] Future Scheduled 2022-03-07 HEPATITIS B VACCINES Met [facility] Test 15:16:29 (1 of 3 - Risk 3-dose series) [code = HEPATITIS B VACCINES (1 of 3 - Risk 3-dose series)] Future Scheduled 2022-03-07 COVID-19 VACCINE (4 - [facility] Test 15:16:29 Booster for Pfizer series) [code = COVID-19 VACCINE (4 - Booster for Pfizer series)] Future Scheduled 2022-03-07 65+ [facility]CCAL [facility] Test 15:16:29 VACCINE (2 - PPSV23 if available, else PCV20) [code = 65+ PNEUMOCOCCAL VACCINE (2 - PPSV23 if available, else PCV20)] Future Scheduled 2022-03-07 INFLUENZA VACCINE Method [facility] Test 15:16:29 [code = INFLUENZA VACCINE] Future Scheduled 2022-03-07 Hepatitis C screening [facility] Test 15:16:29 (procedure) [code = [id number]] Future Scheduled 2022-03-07 COLONOSCOPY SCREENING [facility] Test 15:16:29 [code = COLONOSCOPY SCREENING] Future Scheduled 2022-03-07 SHINGLES VACCINES (1 Met [facility] Test 15:16:29 of 2) [code = SHINGLES VACCINES (1 of 2)] Future Scheduled 2022-03-07 HEPATITIS B VACCINES Met [facility] Test 15:16:29 (1 of 3 - Risk 3-dose series) [code = HEPATITIS B VACCINES (1 of 3 - Risk 3-dose series)] Future Scheduled 2022-03-07 COVID-19 VACCINE (4 - [facility] Test 15:16:29 Booster for Pfizer series) [code = COVID-19 VACCINE (4 - Booster for Pfizer series)] Future Scheduled 2022-03-07 65+ [facility] 15:16:29 VACCINE (2 - PPSV23 if available, else PCV20) [code = 65+ PNEUMOCOCCAL VACCINE (2 - PPSV23 if available, else PCV20)] Future Scheduled 2022-03-07 INFLUENZA VACCINE Method [facility] Test 15:16:29 [code = INFLUENZA VACCINE] Future Scheduled 2022-03-07 Hepatitis C screening [facility] Test 15:16:29 (procedure) [code = [id number]] Future Scheduled 2022-03-07 COLONOSCOPY SCREENING [facility] Test 15:16:29 [code = COLONOSCOPY SCREENING] Future Scheduled 2022-03-07 SHINGLES VACCINES (1 Met [facility] Test 15:16:29 of 2) [code = SHINGLES VACCINES (1 of 2)] Future Scheduled 2022-03-07 HEPATITIS B VACCINES Met [facility] Test 15:16:29 (1 of 3 - Risk 3-dose series) [code = HEPATITIS B VACCINES (1 of 3 - Risk 3-dose series)] Future Scheduled 2022-03-07 COVID-19 VACCINE (4 - [facility] Test 15:16:29 Booster for Pfizer series) [code = COVID-19 VACCINE (4 - Booster for Pfizer series)] Future Scheduled 2022-03-07 65+ [facility] Test 15:16:29 VACCINE (2 - PPSV23 if available, else PCV20) [code = 65+ PNEUMOCOCCAL VACCINE (2 - PPSV23 if available, else PCV20)] Future Scheduled 2022-03-07 INFLUENZA VACCINE Method [facility] Test 15:16:29 [code = INFLUENZA VACCINE] Future Scheduled 2022-03-07 Hepatitis C screening [facility] Test 15:16:29 (procedure) [code = [id number]] Future Scheduled 2022-03-07 COLONOSCOPY SCREENING [facility] Test 15:16:29 [code = COLONOSCOPY SCREENING] Future Scheduled 2022-03-07 SHINGLES VACCINES (1 Met [facility] Test 15:16:29 of 2) [code = SHINGLES VACCINES (1 of 2)] Future Scheduled 2022-03-07 HEPATITIS B VACCINES Met [facility] Test 15:16:29 (1 of 3 - Risk 3-dose series) [code = HEPATITIS B VACCINES (1 of 3 - Risk 3-dose series)] Future Scheduled 2022-03-07 COVID-19 VACCINE (4 - [facility] Test 15:16:29 Booster for Pfizer series) [code = COVID-19 VACCINE (4 - Booster for Pfizer series)] Future Scheduled 2022-03-07 65+ [facility] Test 15:16:29 VACCINE (2 - PPSV23 if available, else PCV20) [code = 65+ PNEUMOCOCCAL VACCINE (2 - PPSV23 if available, else PCV20)] Future Scheduled 2022-03-07 INFLUENZA VACCINE Method [facility] Test 15:16:29 [code = INFLUENZA VACCINE] Future Scheduled 2022-03-07 Hepatitis C screening [facility] Test 15:16:29 (procedure) [code = [id number]] Future Scheduled 2022-03-07 COLONOSCOPY SCREENING [facility] Test 15:16:29 [code = COLONOSCOPY SCREENING] Future Scheduled 2022-03-07 SHINGLES VACCINES (1 Met [facility] Test 15:16:29 of 2) [code = SHINGLES VACCINES (1 of 2)] Future Scheduled 2022-03-07 HEPATITIS B VACCINES Met [facility] Test 15:16:29 (1 of 3 - Risk 3-dose series) [code = HEPATITIS B VACCINES (1 of 3 - Risk 3-dose series)] Future Scheduled 2022-03-07 COVID-19 VACCINE (4 - [facility] Test 15:16:29 Booster for Pfizer series) [code = COVID-19 VACCINE (4 - Booster for Pfizer series)] Future Scheduled 2022-03-07 65+ [facility]AL [facility] Test 15:16:29 VACCINE (2 - PPSV23 if available, else PCV20) [code = 65+ PNEUMOCOCCAL VACCINE (2 - PPSV23 if available, else PCV20)] Future Scheduled 2022-03-07 INFLUENZA VACCINE Method [facility] Test 15:16:29 [code = INFLUENZA VACCINE] Future Scheduled 2022-03-07 Hepatitis C screening [facility] Test 15:16:29 (procedure) [code = [id number]] Future Scheduled 2022-03-07 COLONOSCOPY SCREENING [facility] Test 15:16:29 [code = COLONOSCOPY SCREENING] Future Scheduled 2022-03-07 SHINGLES VACCINES (1 Met [facility] Test 15:16:29 of 2) [code = SHINGLES VACCINES (1 of 2)] Future Scheduled 2022-03-07 HEPATITIS B VACCINES [facility] Test 15:16:29 (1 of 3 - Risk 3-dose series) [code = HEPATITIS B VACCINES (1 of 3 - Risk 3-dose series)] Future Scheduled 2022-03-07 COVID-19 VACCINE (4 - [facility] Test 15:16:29 Booster for Pfizer series) [code = COVID-19 VACCINE (4 - Booster for Pfizer series)] Future Scheduled 2022-03-07 65+ [facility]OCOCCAL [facility] Test 15:16:29 VACCINE (2 - PPSV23 if available, else PCV20) [code = 65+ PNEUMOCOCCAL VACCINE (2 - PPSV23 if available, else PCV20)] Future Scheduled 2022-03-07 INFLUENZA VACCINE Method [facility] Test 15:16:29 [code = INFLUENZA VACCINE] Future Scheduled 2022-03-07 Hepatitis C screening [facility] Test 15:16:29 (procedure) [code = [id number]] Future Scheduled 2022-03-07 COLONOSCOPY SCREENING [facility] Test 15:16:29 [code = COLONOSCOPY SCREENING] Future Scheduled 2022-03-07 SHINGLES VACCINES (1 Met [facility] Test 15:16:29 of 2) [code = SHINGLES VACCINES (1 of 2)] Future Scheduled 2022-03-07 HEPATITIS B VACCINES Met [facility] Test 15:16:29 (1 of 3 - Risk 3-dose series) [code = HEPATITIS B VACCINES (1 of 3 - Risk 3-dose series)] Future Scheduled 2022-03-07 COVID-19 VACCINE (4 - [facility] Test 15:16:29 Booster for Pfizer series) [code = COVID-19 VACCINE (4 - Booster for Pfizer series)] Future Scheduled 2022-03-07 65+ [facility] Test 15:16:29 VACCINE (2 - PPSV23 if available, else PCV20) [code = 65+ PNEUMOCOCCAL VACCINE (2 - PPSV23 if available, else PCV20)] Future Scheduled 2022-03-07 INFLUENZA VACCINE Method [facility] Test 15:16:29 [code = INFLUENZA VACCINE] Future Scheduled 2022-01-04 Hepatitis C screening [facility] Test 08:50:17 (procedure) [code = [id number]] Future Scheduled 2022-01-04 COLONOSCOPY SCREENING [facility] Test 08:50:17 [code = COLONOSCOPY SCREENING] Future Scheduled 2022-01-04 SHINGLES VACCINES (1 Met [facility] Test 08:50:17 of 2) [code = SHINGLES VACCINES (1 of 2)] Future Scheduled 2022-01-04 HEPATITIS B VACCINES Met [facility] Test 08:50:17 (1 of 3 - Risk 3-dose series) [code = HEPATITIS B VACCINES (1 of 3 - Risk 3-dose series)] Future Scheduled 2022-01-04 COVID-19 VACCINE (4 - [facility] Test 08:50:17 Booster for Pfizer series) [code = COVID-19 VACCINE (4 - Booster for Pfizer series)] Future Scheduled 2022-01-04 65+ PNEUMOCOCCAL [facility] Test 08:50:17 VACCINE (2 - PPSV23 if available, else PCV20) [code = 65+ PNEUMOCOCCAL VACCINE (2 - PPSV23 if available, else PCV20)] Future Scheduled 2022-01-04 INFLUENZA VACCINE Method [facility] Test 08:50:17 [code = INFLUENZA VACCINE] Future Scheduled 2021-12-14 [facility] Test 06:18:15 (procedure) [code = [id number]] Future Scheduled 2021-12-14 [facility] Test 06:18:15 [code = COLONOSCOPY SCREENING] Future Scheduled 2021-12-14 SHINGLES VACCINES (1 Met [facility] Test 06:18:15 of 2) [code = SHINGLES VACCINES (1 of 2)] Future Scheduled 2021-12-14 [facility]PATIT[facility]ACCINES [facility] Test 06:18:15 (1 of 3 - Risk 3-dose series) [code = HEPATITIS B VACCINES (1 of 3 - Risk 3-dose series)] Future Scheduled 2021-12-14 COVID-19 VACCINE (4 - [facility] 06:18:15 Booster for Pfizer series) [...] VACCINE] Future Scheduled DIABETES: RETINAL EYE [facility] EXAM [code = DIABETES: RETINAL EYE EXAM] Future Scheduled DIABETIC FOOT EXAM [facility] Test [code = DIABETIC FOOT EXAM] Future Scheduled Hepatitis C screening [facility] Test (procedure) [code = [id number]] Future Scheduled COLONOSCOPY SCREENING [facility] Test [code = COLONOSCOPY SCREENING] Future Scheduled SHINGLES VACCINES (#[facility]) [facility] [code = SHINGLES VACCINES (#1)] Future Scheduled [facility] Test malignant neoplasm of lung (procedure) [code = 882291476] Future Scheduled 65+ [facility]OCOCCAL [facility] Test VACCINE (2 of 4 - PPSV23) [code = 65+ PNEUMOCOCCAL VACCINE (2 of 4 - PPSV23)] Future Scheduled INFLUENZA VACCINE [facility] Test [code = INFLUENZA VACCINE] Encounters Start End Encounter Admission Attending Care Care Encounter Source Date/Time Date/Time Type Type Clinicians Facility Department ID 2022-05-05 Outpatient [facility] [id number] [place] 07:32:[id number] [place] [address] 2022-05-02 Outpatient [facility] [id number] [place] 14:36:16 [id number] [facility] 2022-05-01 Outpatient [facility] [id number] [place] 12:45:33 [id number] [facility] 2022-04-24 Outpatient [facility] [id number] [place] 13:11:11 [id number] [facility] 2021-07-12 Outpatient DAYANA ALFREDO [facility] [id number] [facility] 13:01:44 2021 Outpatient AYDEN, [facility] [id number] [place] 01:03:11 [facility] 2018-06-23 Inpatient DAYANA ALFREDO [facility] [id number] [facility] 10:22:21 2022-12-08 2022-12-08 Outpatient SILVINO COSME [facility] [id number] [place] 08:45:00 08:45:00 [facility] 2022-07-02 2022-08-01 OP [facility] Trans[facility] [id number] Memoria 16:00:00 04:59:00 Transplant Center 35 l Clinic [facility] Pre 2022-07-02 2022-07-31 Outpatient DAYANA ALFREDO [facility] [id number] MHH 11:00:00 23:59:00 2022-07-02 2022-07-31 Outpatient Dayana Alfredo [facility] [id number] 11:00:00 23:59:00 Antoine 35 2022-07-31 2022-07-31 Outpatient DAYANA ALFREDO [facility] [id number] MHH 11:00:00 11:00:00 2022-06-11 2022-07-11 OP [facility] Transplant [id number] Memoria 16:00:00 04:59:00 Transplant Center 34 l Clinic [facility] Pre 2022-06-11 2022-07-10 Outpatient NEWBERRY [facility] [id number] [facility] 11:00:00 23:59:00 BRITTNI 2022-06-11 2022-07-10 Outpatient Newberry [facility] [id number] 11:00:00 23:59:00 Brittni 34 [place] 2022-07-09 2022-07-09 Outpatient Ronald VARGAS, [facility] [id number] Univers 08:04:37 23:59:00 ATTENDING ity of [facility] 2022-07-09 2022-07-09 Hospital Unknown, [facility] [id number] Univers 08:04:37 23:59:00 Encounter Attending JOSE 350.1.13.10 itKellie 4.2.7.2.686 [facility] [id number] [facility] [address] 2022-05-07 2022-06-06 OP [facility] Transplant [id number] Memoria 17:00:00 04:59:00 Transplant Center 33 l [facility] Pre 2022-05-07 2022-06-06 OP [facility] Transplant [id number] Memoria 17:00:00 04:59:00 Transplant Center 33 l [facility] Pre 2022-05-07 2022-06-05 Outpatient DAYANA ALFREDO [facility] [id number] MHHH 11:00:00 23:59:00 2022-05-07 2022-06-05 Outpatient Dayana Alfredo [facility] [id number] 11:00:00 23:59:00 Arash 33 2022-04-09 2022-05-09 OP [facility] Transplant [id number] Memoria 17:00:00 05:59:00 Transplant Center 32 l [facility] Pre 2022-04-09 2022-05-09 OP [facility] Transplant [id number] Memoria 17:00:00 05:59:00 Transplant Center 32 l [facility] Pre 2022-04-09 2022 Outpatient DAYANA ALFREDO [facility] [id number] M[facility]H 11:00:00 23:59:00 2022-04-09 2022 Outpatient Dayana Alfredo [facility] [id number] 11:00:00 23:59:00 Antoine 32 2022-05-05 2022-05-05 Office Silvino Cosme 6400 1.2.840.114 [id number] [place] 08:45:00 09:15:00 Visit JAXON HAMMOND 350.1.13.58 [facility] 9.2.7.2.686 [id number] 2 2022-04-29 2022-04-29 DIZZINESS 1 LEXI, CUEVAS [facility] [id number] 19:50[facility]00 23:00:00 [facility] [place] Bra[place]en king GIDDINESS N, [address] BYPASS, [place]LUF/[place] [address] 2022-04-29 2022-04-29 Inpatient [facility] [id number] [facility] 00:[facility] 00[facility]00[facility]00 [facility] [id number] [facility], [id number] [id number] l BYPASS, [place]LUF[place] [address] 2022-04-29 2022-04-29 Inpatient MMC MMC [id number] -d [facility] 00:00:00 [facility] [id number] [facility], [id number] c72acf l BYPASS, (LUF/[place] [address] 2022-04-26 2022-04-27 CYSTITIS 1 FRANKY, [facility] MMC [id number] 19:27:00 22:10:00 UNS ALBINA [facility] L ukes WITHOUT N, [address] BYPASS, (LUF/[place] [address] 2022-04-26 2022-04-26 Inpatient MMC MMC [id number] -c [facility] 00:00:00 [facility] [id number] [facility], [id number] [id number] l BYPASS, (LUF/[place] [address] 2022-04-26 2022-04-26 Inpatient MMC MMC [id number] -[address] [facility] 00:00:00 00:00:00 [facility] [id number] [facility], [id number] [id number] l BYPASS, (LUF/[place] [address] 2022-01-07 2022-02-06 OP [facility] Transplant [id number] Memoria 17:00:00 05:59:00 Transplant Center 31 l [facility] 2022-01-07 2022-02-06 OP [facility] Transplant [id number] Memoria 17:00:00 05:59:00 Transplant Center 31 l [facility] 2022-01-07 2022-02-05 Outpatient DAYANA ALFREDO [facility] [id number] [id number] [facility] 11:00:00 23:59:00 2022-01-07 2022-02-05 Outpatient Dayana Alfredo [facility] [id number] 11:00:00 23:59:00 Antoine 31 2021-12-24 2021-12-24 Outpatient nullFlavo [facility] [id number] Memoria 05:40:58 08:45:00 r [facility] 2021-12-24 2021-12-24 Outpatient nullFlavo [facility] [id number] Memoria 05:40:58 08:45:00 r [facility] 2021-11-08 2021-12-08 OP nullFlavo Transplant [id number] Memoria 16:00:00 04:59:00 Transplant r Center 30 l [facility] 2021-11-08 2021-12-08 OP nullFlavo Transplant [id number] Memoria 16:00:00 04:59:00 Transplant r Center 30 l [facility] 2021-11-08 2021-12-07 Outpatient DAYANA ALFREDO [facility] [id number] [facility] 11:00:00 23:59:00 2021-11-08 2021-12-07 Outpatient Dayana Alfredo [facility] [id number] 11:00:00 23:59:00 Arash 30 2021-11-11 2021-11-12 Outpt Diag nullFlavo [facility] [id number] Memoria 13:35:00 04:59:00 Services r Outpatient 08 l Elizabeth Zaldivar [place] 2021-11-11 2021-11-12 Outpt Diag nullFlavo [facility] [id number] Memoria 13:35:00 04:59:00 Services r Outpatient 08 l Imaging [facility] 2021-11-11 2021-11-11 Outpatient [facility] [id number] 08:35:00 23:59:00 08 2021-10-28 2021-10-28 Office SILVINO COSME 6400 1.2.840.114 [id number] [place] 08:45:00 08:45:00 Visit JAXON 350.1.13.58 [facility] 9.2.7.2.686 [id number] 2 2021-09-06 2021-10-06 OP nullFlavo Transplant [id number] Memoria 16:00:00 04:59:00 Transplant r Center 29 l [facility] 2021-09-06 2021-10-06 OP nullFlavo Transplant [id number] Memoria 16:00:00 04:59:00 Transplant r Center 29 l [facility] 2021-09-06 2021-10-05 Outpatient [facility] [id number] [facility] 11:00:00 23:59:00 ELENA HAQUE 2021-09-06 2021-10-05 Outpatient De [facility] [id number] 11:00:00 23:59:00 Carmella Haque 2021-07-02 2021-08-01 [place] [id number] Memoria 15:09:00 04:59:00 Transplant r Adv Heart 28 l Clinic - Failure [facility] 2021-07-02 2021-08-01 [place] [id number] Memoria 15:09:00 04:59:00 Transplant r Adv Heart 28 l Clinic - Failure [facility] 2021-07-02 2021-07-31 [facility] 9628 [facility] 10:09:00 23:59:00 IDA VIVEROS 2021-07-02 2021-07-31 [facility] [id number] 10:09:00 23:59:00 Yari Viveros 2021-07-23 2021-07-23 Outpatient nullFlavo [facility] 1126 [id number] Memoria 10:49:41 13:25:[address] [facility] 2021-07-23 2021-07-23 Outpatient [facility]Fl[facility] 1126 21 Memoria 10:49:41 13:25:[address] [facility] 2021-07-23 2021-07-23 Outpatient Cortez, [id number] 05:49:41 08:25:00 Ciro Hutchison 8 2021-07-23 2021-07-23 Outpatient nullFlavo [facility] [id number] Memoria 05:49:41 08:25:00 r braeden [place] 2021-06-12 2021-06-12 Orders Cortez, 1.2.840.1 [id number] Methodi 00:00:00 00:00:00 Only Ciro 47564.1.1 204 [facility]430[facility]2.7 [facility] .8 2021-05-09 2021-06-08 OP [facility]Flavo [facility] [id number] Memoria 13:44:00 04:59:00 Transplant r [place] [facility] Pre 2021-05-09 2021-06-08 OP [facility]Flavo [facility] [id number] Memoria 13:44:00 04:59:00 Transplant r [address] 2021-05-09 2021-06-07 Outpatient DE [facility] 9625 [facility] 07:44:00 23:59:00 ELENA HAQUE 2021-05-09 2021-06-07 Outpatient De [facility] [id number] 07:44:00 23:59:00 Mary Haque 2021 2021-06-07 OP nullFlavo Transplant [id number] Memoria 17:00:00 04:59:00 Transplant r [address] 2021 2021-06-07 OP nullFlavo Transplant [id number] Memoria 17:00:00 04:59:00 Transplant r [address] 2021 2021-06-06 Outpatient DE [facility] 9626 [facility] 11:00:00 23:59:00 ELENA HAQUE 2021 2021-06-06 Outpatient De [facility] [id number] 11:00:00 23:59:00 Ayanna Haque 2021-05-20 2021-05-24 [facility] Gus Jackson 1.2.840.1 [id number] Methodi 18:07:00 13:42:00 [place] [address].1.[address] [place], Giancarlo 3.430.2.7 H ospita Jaret Decker Tori .3.000406 l David Gonzalez .8 2021-05-23 2021-05-23 Anesthesia Julia Clements 1.2.840.1 [id number] Methodi 12:44:00 13:00:00 Event Dylon Krishnamurthy 79133.1.[address] 3.430.2.7 Hospit a .3.879136 l .8 2021-05-23 2021-05-23 Surgery Cortez, 1.2.840.1 [id number] Methodi 12:20:00 12:45:[address] Jitendrabha 3.430.2.7 Ho spita i .3.648185 l .8 2021-05-20 2021-05-20 Travel 1.2.840.1 1.2.309.093 [id number] [id number] Methodi 00:00:00 00:00:[address] 3.430.2.7 0.2.7.3.698 Ho spita .3.377996 084.8 l .8 2021-05-09 2021-05-10 Institutio nullFlavo [facility] [id number] Memoria 17:17:00 05:59:00 n Patient r Outpatient 06 l Imaging Zen Zaldivar 2021-05-09 2021-05-10 Institutio nullFlavo [facility] [id number] Memoria 17:17:00 05:59:00 n Patient r Outpatient 06 l [facility] 2021-05-09 2021-05-09 Outpatient Dayana Alfredo [facility] [id number] 11:17:00 23:59:00 Antoine 06 2021-04-08 2021 OP nullFlavo Transplant [id number] Memoria 17:55:00 05:59:00 Transplant r Center 24 l [facility] Pre 2021-04-08 2021 OP nullFlavo Transplant [id number] Memoria 17:55:00 05:59:00 Transplant r Center 24 l [facility] Pre 2021-04-08 2021-05-07 Outpatient DE [facility] 9624 [facility] 11:55:00 23:59:00 ELENA HAQUE 2021-04-08 2021-05-07 Outpatient De [facility] [id number] 11:55:00 23:59:00 Shabnam 24 Elena Prieto 2021-04-29 2021-04-29 Office Silvino Cosme 6400 1.2.840.114 [id number] [place] 09:00:00 09:30:00 Visit JAXON HAMMOND 350.1.13.58 [facility] 9.2.7.2.686 [id number] 2 2021-03-05 2021-04-04 OP nullFlavo Transplant [id number] Memoria 17:00:00 05:59:00 Transplant r Center 23 l [facility] Pre 2021-03-05 2021-04-04 OP nullFlavo Transplant [id number] Memoria 17:00:00 05:59:00 Transplant r Center 23 l [facility] Pre 2021-03-05 2021-04-03 Outpatient DE [facility] 9623 [facility] 11:00:00 23:59:00 ELENA HAQUE 2021-03-05 2021-04-03 Outpatient De [facility] [id number] 11:00:00 23:59:00 Shabnam 23 Elena Prieto 2021-02-04 2021-03-06 OP nullFlavo Transplant [id number] Memoria 17:00:00 05:59:00 Transplant r Center 22 [facility] 2021-02-04 2021-03-06 OP nullFlavo Transplant [id number] Memoria 17:00:00 05:59:00 Transplant r Center 22 [facility] 2021-02-04 2021-03-05 Outpatient DE [facility] 9622 [facility] 11:00:00 23:59:00 DEANNHANANECHRIS ELENA 2021-02-04 2021-03-05 Outpatient De [facility] [id number] 11:00:00 23:59:00 [facility] Ida 2021-02-06 2021-03-02 Recurring nullFlavo Oncology [id number] Memoria 14:58:00 00:00:00 r 19 [place] 2021-02-06 2021-03-02 Recurring [facility]Flavo Oncology [id number] Memoria 14:58:00 00:00:00 r braeden [place] 2021-02-06 2021-03-01 Outpatient AYDEN, [facility] 9619 [facility] 08:58:00 18:00:00 CAMELIA 2021-02-06 2021-03-01 Outpatient Ayden, [facility] [id number] 08:58:00 18:00:00 Camelia 19 2021-02-11 2021-02-11 EXT MHH OP de EXT MSRDP [id number] [place] 00:00:00 00:00:00 [facility] Er, LOCATION [id number] [facility] [id number] 2021-02-11 2021-02-11 EXT MHH OP de EXT MSRDP [id number] [place] 00:00:00 00:00:00 [facility] Er, LOCATION [id number] Health Elena [id number] 2021-01-01 2021-01-31 OP null[facility] Transplant [id number] Memoria 16:00:00 05:59:00 Transplant r Center 21 [facility] Pre 2021-01-01 2021-01-31 OP nullFlavo Transplant [id number] Memoria 16:00:00 05:59:00 Transplant r Center 21 [facility] 2021-01-01 2021-01-30 Outpatient De [facility] [id number] 11:00:00 23:59:00 Tara Haque Ida 2021-01-02 2021-01-02 EXT MHH OP de EXT MSRDP [id number] 1 [id number] [place] 00:00:00 00:00:00 [facility] [id number] [facility] [id number] 0 2021-01-02 2021-01-02 EXT MHH OP de EXT MSRDP 1.2.840.114 1 [id number] [place] 00:00:00 00:00:00 [facility] 350.1.13.58 [facility] 9.2.7.2.686 [id number] 2021-01-01 2021-01-01 Outpatient DE [facility] 9621 [facility] 11:00:00 11:00:00 ELENA HAQUE 2020-11-30 2020-12-30 OP nullFlavo Transplant [id number] Memoria 20:00:00 04:59:00 Transplant r Center 12 [facility] Pre 2020-11-30 2020-12-30 OP nullFlavo Transplant [id number] Memoria 20:00:00 04:59:00 Transplant r Center 12 [facility] Pre 2020-11-30 2020-12-30 OP nullFlavo Transplant 48170 [id number] Memoria 16:00:00 04:59:00 Transplant r Center 20 [facility] Pre 2020-11-30 2020-12-30 OP nullFlavo Transplant 08096 [id number] Memoria 16:00:00 04:59:00 Transplant r [place] 20 [facility] Pre 2020-11-30 2020-12-29 Outpatient DE [facility] MHHH 9612 MHHH 15:00:00 23:59:00 SHABNAM, ELENA 2020-11-30 2020-12-29 [facility] [id number] 15:00:00 23:59:00 Goljackson, 12 Elena Prieto 2020-11-30 2020-12-29 Outpatient DE MHHH MHHH 9620 MH 11:00:00 23:59:00 SHABNAM, ELENA 2020-11-30 2020-12-29 Outpatient De [facility] [id number] 11:00:00 23:59:00 Shabnam, 20 Elena Prieto 2020-12-27 2020-12-27 EXT MHH OP de EXT MSRDP 1.2.840.114 1 [id number] [place] 00:00:00 00:00:00 Golhananewy, LOCATION 350.1.13.58 [facility] 9.2.7.2.686 [id number] 0 2020-12-27 2020-12-27 EXT MHH OP de EXT MSRDP 1.2.840.114 1 [id number] [place] 00:00:00 00:00:00 Golovine, LOCATION 350.1.13.58 Health Elena 9.2.7.2.686 [id number] 0 2020-12-03 2020-12-03 EXT MHH OP de EXT MSRDP 1.2.840.114 1 [id number] [place] 00:00:00 00:00:00 Golovine, LOCATION 350.1.13.58 Health Elena 9.2.7.2.686 [id number] 0 2020-12-03 2020-12-03 EXT MHH OP de EXT MSRDP 1.2.840.114 1 [id number] [place] 00:00:00 00:00:00 Golov[place], LOCATION 350.1.13.58 Health Elena 9.2.7.2.686 [id number] 2020-10-31 2020-11-10 OP nullFlavo Transplant [id number] Memoria 16:00:00 04:59:00 Transplant r Center 18 [facility] 2020-10-31 2020-11-10 OP nullFlavo Transplant [id number] Memoria 16:00:00 04:59:00 Transplant r Center 18 [facility] 2020-10-31 2020-11-09 Outpatient DE [facility] 9618 [facility] 11:00:00 23:59:00 DEANNHANANEELENA FUCHS 2020-10-31 2020-11-09 Outpatient De [facility] [id number] 11:00:00 23:59:00 CorwinAlfredo fuchs Ida 2020-10-22 2020-10-22 Office CarmelinaSilvino 6400 1.2.840.114 [id number] [place] 07:47:22 08:17:[address] 350.1.13.58 [facility] 9.2.7.2.686 [id number] [id number] 2020-10-12 2020-10-12 EXT [facility] OP de EXT MSRDP 1.2.840.114 1 [id number] [place] 00:00:00 00:00:00 [facility] Er, LOCATION 350.1.13.58 [facility] 9.2.7.2.686 [id number] 0 2020-10-12 2020-10-12 EXT MHH OP de EXT MSRDP 1.2.840.114 1 [id number] [place] 00:00:00 00:00:00 [facility] LOCATION 350.1.13.58 [facility] 9.2.7.2.686 [id number] 2020-08-30 2020-09-29 OP nullFlavo Transplant [id number] Memoria 16:00:00 04:59:00 Transplant r Center 16 [facility] 2020-08-30 2020-09-29 OP nullFlavo Oncology [id number] Memoria 16:00:00 04:59:00 Transplant r 14 [facility] 2020-08-30 2020-09-29 OP nullFlavo Oncology [id number] Memoria 16:00:00 04:59:00 Transplant r 14 [facility] Pre 2020-08-30 2020-09-29 OP nullFlavo Transplant [id number] [facility] 16:00:00 04:59:00 Transplant r Center 16 [facility] Pre 2020-08-30 2020-09-28 Outpatient HASBUN, [facility] 9616 [facility] 11:00:00 23:59:00 [place] 2020-08-30 2020-09-28 Outpatient AYDEN, [facility] 9614 [facility] 11:00:00 23:59:00 CAMELIA 2020-08-30 2020-09-28 Outpatient Hasbun, [facility] [id number] 11:00:00 23:59:00 [place] 16 2020-08-30 2020-09-28 Outpatient Ayden, [facility] [id number] 11:00:00 23:59:00 Camelia 14 2020-09-19 2020-09-20 Emergency Maryan Oneill K. 1.2.840.1 [id number] Methodi 12:17:00 17:35:00 Jeremy Cool 64581.1.[address] 3.430.2.7 Hospit a .3.206639 l .8 2020-09-19 2020-09-19 Travel 1.2.840.1 1.2.331.883 4567 [id number] Methodi 00:00:00 00:00:[address] 3.430.2.7 0.2.7.3.698 Ho spita .3.702160 084.8 l .8 2020-08-15 2020-08-15 EXT MHH OP Hasbun, EXT MSRDP 1.2.840.114 1 [id number] [place] 00:00:00 00:00:00 [place] LOCATION 350.1.13.58 H ealth 9.2.7.2.686 [id number] 0 2020-08-15 2020-08-15 EXT MHH OP Hasbun, EXT MSRDP 1.2.840.114 1 [id number] [place] 00:00:00 00:00:00 [place] LOCATION 350.1.13.58 H ealth 9.2.7.2.686 [id number] 0 2020-08-14 2020-08-14 Office Leslie, 1.2.840.1 [id number] Methodi 09:57:50 10:57:04 Visit Dominique Choudhury 73923.1.1 600 s t 3.430.2.7 Hospit a .3.338842 l .8 2020-08-14 2020-08-14 Travel 1.2.840.1 1.2.009.545 7123 [id number] Methodi 00:00:00 00:00:[address] 3.430.2.7 0.2.7.3.698 Ho spita .3.835129 084.8 l .8 2020-07-31 2020-07-31 Travel 1.2.840.1 1.2.454.914 6204 343743 Methodi 00:00:00 00:00:[address] 3.430.2.7 0.2.7.3.698 Ho spita .3.690346 084.8 l .8 2020-07-24 2020-07-25 Emergency Brittni Del Valle 1.2.84 0.1 [id number] Methodi 01:19:00 15:25:00 Jazmyn Torres 19005.1.[address] Julian Rivero 3.430.2.7 Hospita .3.135546 l .8 2020-07-24 2020-07-24 Travel 1.2.840.1 1.2.186.955 1687 648858 Methodi 00:00:00 00:00:[address] 3.430.2.7 0.2.7.3.698 Ho spita .3.873913 084.8 l .8 2020-07-23 2020-07-23 Hospital [facility], 1.2.840.1 [id number] Methodi 07:07:00 15:31:00 Encounter Dominique Choudhury 73380.1.[address] 3.430.2.7 Hospit a .3.489121 l .8 2020-07-23 2020-07-23 Anesthesia Isabelle Wetzel A. 1.2.840.1 10 [id number] Methodi 11:04:00 12:42:00 Event Violette Forbes 63839.1.[address] 3.430.2.7 Hospit a .3.173225 l .8 2020-07-23 2020-07-23 Surgery [facility], 1.2.840.1 [id number] 010 [id number] Methodi 10:25:00 11:50:00 Dominique Choudhury 77952.1.1 352 s t 3.430.2.7 Hospit a .3.117516 l .8 2020-07-20 2020-07-20 Pre-Admiss [facility], 1.2.840.1 [id number] Methodi 07:28:16 08:28:16 ion Dominique Choudhury 18160.1.1 719 s t Testing 3.430.2.7 Hospit a .3.307564 l .8 2020-07-19 2020-07-19 Travel 1.2.840.1 1.2.006.485 2733 091334 Methodi 00:00:00 00:00:[address] 3.430.2.7 0.2.7.3.698 Ho spita .3.820542 084.8 l .8 2020-07-19 2020-07-19 Prep for Mccain, 1.2.840.1 [id number] Methodi 00:00:00 00:00:00 Surgery Abbi P [address]92.1.[address] 3.430.2.7 Hospit a .3.080004 l .8 2020-07-17 2020-07-17 [facility] 1.2.840.1 [id number] Methodi 14:08:25 14:58:03 Visit Dominique Choudhury 59408.1.1 045 s t 3.430.2.7 Hospit a .3.332838 l .8 2020-07-17 2020-07-17 Travel 1.2.840.1 1.2.939.331 1437 372285 Methodi 00:00:00 00:00:[address] 3.430.2.7 0.2.7.3.698 Ho spita .3.010849 084.8 l .8 2020-06-14 2020-07-14 OP nullFlavo Transplant [id number] Memoria 12:03:00 04:59:00 Transplant r [address] 2020-06-14 2020-07-14 OP nullFlavo Transplant [id number] [id number] Memoria 12:03:00 04:59:00 Transplant r [address] 2020-06-14 2020-07-13 Outpatient HASBUN, [facility] 9615 [facility] 07:03:00 23:59:00 [facility] 2020-06-14 2020-07-13 Outpatient Hasbun, [facility] [id number] 07:03:00 23:59:00 [place] 2020-07-10 2020-07-12 Emergency Constantin Aquino 1.2.840.1 1041 [id number] Methodi 12:50:00 16:36:00 Jeremy Cool 99403.1.[address] 3.430.2.7 Hospit a .3.303332 l .8 2020-07-11 2020-07-11 Anesthesia Serge Tilley 1.2.8 40.1 [id number] Methodi 17:55:00 19:35:00 Event Ollie Rolle 79725.1.[address] 3.430.2.7 Hospit a .3.394209 l .8 2020-07-11 2020-07-11 Surgery Oppermann, 1.2.840.1 [id number] Methodi 15:30:00 16:55:00 Dominique Choudhury 15632.1.1 578 s t 3.430.2.7 Hospit a .3.108977 l .8 2020-07-10 2020-07-10 Travel 1.2.840.1 1.2.071.385 4426 879468 Methodi 00:00:00 00:00:[address] 3.430.2.7 0.2.7.3.698 Ho spita .3.519723 084.8 l .8 2020-06-09 2020-06-09 Outpatient MAIKOL [facility] 7508 [facility] 17:00:00 23:59:00 KATEY 2020-06-09 2020-06-09 EXT [facility] OP Lassiter, EXT MSRDP 1.2.840.114 [id number] [place] 00:00:00 00:00:00 Katey LOCATION 350.1.13.58 Health 9.2.7.2.686 [id number] 2020-06-09 2020-06-09 EXT [facility] OP Lassiter, EXT MSRDP 1.2.840.114 [id number] [place] 00:00:00 00:00:00 Katey LOCATION 350.1.13.58 Health 9.2.7.2.686 [id number] 0 2020 2020-06-07 OP nullFlavo Transplant [id number] Memoria 17:00:00 04:59:00 Transplant r Center 13 [facility] Pre 2020 2020-06-07 OP nullFlavo Transplant [id number] Memoria 17:00:00 04:59:00 Transplant r Center 13 [facility] Pre 2020 2020-06-06 Outpatient BLUE [facility] 9613 [facility] 11:00:00 23:59:00 [place] 2020 2020-06-06 Outpatient Blue [facility] [id number] 11:00:00 23:59:00 [place] 13 2020-04-04 2020-05-04 OP nullFlavo [facility] [id number] Memoria 12:56:00 05:59:00 Transplant r [place] 11 [facility] nora Pre Advanced Heart Failure 2020-04-04 2020-05-04 OP nullFlavo [facility] [id number] Memoria 12:56:00 05:59:00 Transplant r [place] 11 [facility] Herm nora Pre Advanced Heart Failure 2020-04-04 2020-05-03 [facility] 9611 [facility] 06:56:00 23:59:00 IDA VIVEROS 2020-04-04 2020-05-03 [facility] [id number] 06:56:00 23:59:00 Ben Viveros 2020-04-23 2020-04-23 Appointmen SILVINO COSME, KODY Urology - 72 [id number] [place] 08:15:00 08:15:00 t; Bibi COSME i, M.D. [facility] 2020-03-08 2020-04-07 OP nullFlavo Transplant [id number] Memoria 17:00:00 05:59:00 Transplant r [address] 2020-03-08 2020-04-07 OP nullFlavo Transplant [id number] Memoria 17:00:00 05:59:00 Transplant r [address] 2020-03-08 2020-04-06 Outpatient DE [facility] 9610 [facility] 11:00:00 23:59:00 ELENA HAQUE 2020-03-08 2020-04-06 Outpatient De [facility] [id number] 11:00:00 23:59:00 Alix Haque 2020-04-04 2020-04-04 Appointmen ORGANTRANSP [facility] [id number] [place] 07:00:00 07:00:00 t; EVANS Physi ci ORGANTRANS ans PLANT, OP 2020-03-08 2020-03-08 EXT MHH OP de EXT MSRDP 1.2.840.114 1 [id number] [place] 00:00:00 00:00:00 [facility], LOCATION 350.1.13.58 [facility] Elena 9.2.7.2.686 [id number] 0 2020-03-08 2020-03-08 EXT MHH OP de EXT MSRDP 1.2.840.114 1 [id number] [place] 00:00:00 00:00:00 [facility] Er, LOCATION [facility].1.13.58 [facility] Elena 9.2.7.2.686 [id number] 0 2020-01-18 2020-02-17 OP nullFlavo Transplant [id number] Memoria 15:00:00 05:59:00 Transplant r Center 09 l [facility] 2020-01-18 2020-02-17 OP nullFlavo Transplant [id number] Memoria 15:00:00 05:59:00 Transplant r Center 09 [facility] 2020-01-18 2020-02-16 Outpatient De [facility] [id number] 09:00:00 23:59:00 [place] [address] Elena [facility] 2019-10-24 2019-10-24 Outpatient MHIE MHIE [id number] Memoria 09:45:00 09:45:00 03 bra[place]en [place] 2019-10-24 2019-10-24 Outpatient MHIE MHIE [id number] Memoria 09:45:00 09:45:00 03 [facility] 2019-10-24 2019[facility]10-[facility]ILVINO COSME [facility] Urology - 67 [id number] [place] 09:45:00 09:45:00 tBibi OLMOS i, M.D. [facility] 2019-05-09 2019-05-09 Outpatient MAIKOL [facility] 0073 [facility] 15:00:00 15:00:00 KATEY 2019-04-27 2019-04-28 Outpatient nullFlavo [facility] [id number] Memoria 14:30:00 05:59:59 r Urology [facility] 02 l Zen 2019-04-27 2019-04-28 Outpatient nullFlavo [facility] [id number] Memoria 14:30:00 05:59:59 r Urology [facility] 02 l [place] 2019-04-27 2019-04-28 Outpatient nullFlavo [facility] [id number] Memoria 14:00:00 05:59:59 r Urology [facility] 00 l [place] 2019-04-27 2019-04-28 Outpatient nullFlavo [facility] [id number] Memoria 14:00:00 05:59:59 r Urology [facility] 01 l [place] 2019-04-27 2019-04-28 [place] [id number] Memoria 14:00:00 05:59:59 r Urology [facility] 00 l [place] 2019-04-27 2019-04-28 [place] [id number] Memoria 14:00:00 05:59:59 r Urology [facility] 01 l [place] 2019-04-27 2019-04-27 [place] [id number] 08:30:00 23:59:59 02 2019-04-27 2019-04-27 [place] [id number] 08:00:00 23:59:59 00 2019-04-27 2019-04-27 Outpatient Carmelina, Tung MG MHMG [id number] 08:00:00 23:59:59 2019-04-27 2019-04-27 Outpatient MHIE MHIE [id number] Memoria 08:30:00 08:30:00 02 l [place] 2019-04-27 2019-04-27 Outpatient MHIE MHIE [id number] Memoria 08:00:00 08:00:00 00 l [place] 2019-04-27 2019-04-27 Outpatient MHIE MHIE [id number] Memoria 08:00:00 08:00:00 01 l [place] 2019-03-16 2019-04-15 OP nullFlavo [facility] [id number] Memoria 12:50:00 05:59:00 Transplant r [place] 05 [facility] Herm nora Pre Advanced Heart Failure 2019-03-16 2019-04-15 OP nullFlavo [facility] [id number] Memoria 12:50:00 05:59:00 Transplant r [place] 05 [facility] Herm nora Pre Advanced Heart Failure 2019-03-16 2019-04-14 Outpatient Yehuda [facility] [id number] 06:50:00 23:59:00 Arnaldo 05 Vikas 2019-04-01 2019-04-02 Outpatient nullFlavo [place] [id number] Memoria 12:40:00 05:59:00 r [place] 06 [facility] 2019-04-01 2019-04-02 Outpatient nullFlavo [facility] [id number] Memoria 12:40:00 05:59:00 r Zen 06 [facility] 2019-04-01 2019-04-01 Outpatient Yehuda [facility] [id number] 06:40:00 23:59:00 Arnaldo 06 Vikas 2019-04-01 2019-04-01 Outpatient [facility] [id number] [facility] 06:40:00 06:40:00 2019-03-16 2019-03-16 Appointmen ORGANTRANSP [facility] [id number] [place] 08:30:00 08:30:00 t; KARLAT, OP Physi ci ORGANTRANS ans PLANT, OP 2019-03-16 2019-03-16 Outpatient [facility] CAR [id number] [facility] 06:50:00 06:50:00 2018-08-20 2018-09-19 OP nullFlavo [facility] [id number] Memoria 13:05:00 04:59:00 Transplant r [place] 03 [facility] n Pre 2018-08-20 2018-09-19 OP nullFlavo [facility] [id number] Memoria 13:05:00 04:59:00 Transplant r [place] 03 [facility] n Pre 2018-08-20 2018-09-18 Outpatient Yehuda [facility] [id number] 08:05:00 23:59:00 Arnaldo 03 Vikas 2018-08-20 2018-08-20 Outpatient [facility] [id number] [facility] 08:05:00 08:05:00 2018-07-07 2018-08-06 Recurring nullFlavo [facility] [id number] Memoria 14:33:00 04:59:00 r Zen 01 l [facility] Advanced Heart Failure 2018-07-07 2018-08-06 Recurring nullFlavo [facility] [id number] Memoria 14:33:00 04:59:00 r Zen 01 l [facility] Advanced Heart Failure 2018-07-07 2018-08-05 Outpatient Yehuda [facility] [id number] 09:33:00 23:59:00 Arnaldo Sin Bojorquezdri 2018-06-23 2018-07-23 Recurring nullFlavo Oncology [id number] Memoria 15:27:00 04:59:00 r 02 l [place] 2018-06-23 2018-07-23 Recurring nullFlavo Oncology [id number] Memoria 15:27:00 04:59:00 r 02 l [place] 2018-06-23 2018-07-22 Outpatient Ayden, [facility] [id number] 10:27:00 23:59:00 Camelia 2018-07-07 2018-07-[address] [facility] [id number] Memoria 13:31:02 04:59:59 Message r Adv Heart 01 l Failure [place] 2018-07-07 2018-07-[address] [facility] [id number] Memoria 13:31:02 04:59:59 Message r Adv Heart 01 l Failure [place] 2018-07-07 2018-07-08 Outpatient MH91 MH91 [id number] 08:31:02 23:59:59 2018-07-07 2018-07-07 Outpatient [facility] PUL 9601 [facility] 09:33:00 09:33:00 2018-06-30 2018-07-01 Outpt Diag nullFlavo [facility] [id number] Memoria 16:19:00 04:59:00 Services r Outpatient 03 l Imaging [facility] 2018-06-30 2018-07-01 Outpt Diag nullFlavo [facility] [id number] Memoria 16:19:00 04:59:00 Services r Outpatient 03 l Imaging [facility] 2018-06-30 2018-06-30 [facility] [id number] 11:19:00 23:59:00 Camelia 2018-06-29 2018-06-29 Cherie [place] [id number] [place] 14:00:00 14:00:00 t; W, Physic i christel SHIPMAN M.D. KRISTOFER, M.D. 2018-06-23 2018-06-23 Outpatient [facility] [id number] [facility] 10:27:00 10:27:00 2018-06-23 2018-06-23 Appointmen KODY HENSLEY UTP [id number] [place] 10:00:00 10:00:00 t; CAMELIA HENSLEY, Bibi Kee M.D. 2018-06-08 2018-06-08 Appointmen STEVEN [facility] UTP [id number] [place] 10:00:00 10:00:00 t; W, Physic i christel SHIPMAN M.D. KRISTOFER, M.D. 2018-05-12 2018-05-13 Outpatient [facility]Flavo [facility] [id number] Memoria 13:51:00 04:59:00 r [place] 04 [facility] 2018-05-12 2018-05-13 Outpatient nullFlavo [facility] [id number] Memoria 13:51:00 04:59:00 r [place] 04 [facility] 2018-05-12 2018-05-12 Outpatient Maikol [facility] [id number] 08:51:00 23:59:00 Katey Olga Lidia [place] 2018-04-06 2018-05-06 OP nullFlavo [facility] [id number] Memoria 14:35:00 05:59:00 Transplant r [place] 00 l [facility] n Pre 2018-04-06 2018-05-06 OP nullFlavo [facility] [id number] Memoria 14:35:00 05:59:00 Transplant r [place] 00 l [facility] 2018-04-06 2018-05-05 Outpatient De [facility] [id number] 08:35:00 23:59:00 Raulito Haque 2017-09-23 2017-09-23 Outpt Diag nullFlavo [facility] [id number] Memoria 13:00:00 13:00:00 Services r Outpatient 02 l [facility] 2017-09-23 2017-09-23 Outpt Diag nullFlavo [facility] [id number] Memoria 13:00:00 13:00:00 Services r Outpatient 02 l [facility] 2017-09-23 2017-09-23 Outpatient Monet, MHOIP MHOIP [id number] 08:00:00 08:00:00 Lucila Flores 2016-11-03 2016-11-03 Emergency nullFlavo [facility] [id number] Memoria 15:01:00 21:46:00 r [place] 03 [facility] 2016-11-03 2016-11-03 Emergency nullFlavo [facility] [id number] Memoria 15:01:00 21:46:00 r [place] 03 [facility] 2016-11-03 2016-11-03 Outpatient Garbettye, MHPL MHPL [id number] 10:01:00 16:46:00 Damion 03 2015-09-10 2015-09-10 EC nullFlavo [facility] [id number] Memoria 17:33:00 22:04:00 Emergency r Zen 02 l [facility] 2015-09-10 2015-09-10 EC nullFlavo [facility] [id number] Memoria 17:33:00 22:04:00 Emergency r [place] 02 l [facility] 2015-09-10 2015-09-10 Outpatient Gemma, MHPL MHPL [id number] 12:33:00 17:04:00 Brigido Claudia Manning 2015-06-20 2015-06-20 EC nullFlavo [facility] [id number] Memoria 15:02:00 22:07:00 Emergency r [place] 01 l [facility] 2015-06-20 2015-06-20 EC nullFlavo [facility] [id number] Memoria 15:02:00 22:07:00 Emergency r Zen 01 l [facility] 2015-06-20 2015-06-20 Outpatient Thornton, MHPL MHPL [id number] 10:02:00 17:07:00 Mayura 01 [employer] 2014-06-05 2014-06-06 Outpt Diag nullFlavo [facility] [id number] Memoria 15:20:00 04:59:00 Services r Outpatient 01 l [facility] 2014-06-05 2014-06-06 Outpt Diag nullFlavo [facility] [id number] Memoria 15:20:00 04:59:00 Services r Outpatient 01 l Imaging Zen [place] 2014-06-05 2014-06-05 Outpatient [place], 2.16.840. 2.16.840.1. 3 [id number] 10:20:00 23:59:00 Segundo Alma544501. 715715.3.61 01 Edd 3.615.0.1 5.0.101 01 Results Test Description Test Time Test Comments Results Result Comments Source BLOOD BANK RESULTS 2022-06-17 12:07:00 Test Item Value Reference Range Interpretation Comme nts ABO/RH Confirm (test code = ABO/RH Confirm) O POS [facility] [id number] 11:57:00 Test Item Value Reference Range Interpretation Comments Titer (test code = Titer) 64 1 [facility] [id number] 11:57:00 Test Item Value Reference Range Interpretation Comments Antibody Titered (test code = Anti-A1 Antibody Titered) [facility] [id number] 11:57:00 Test Item Value Reference Range Interpretation Comments Titer2 (test code = Titer2) 32 1 [facility] [id number] 11:57:00 Test Item Value Reference Range Interpretation Comments Antibody Titered2 (test code = Anti-B Antibody Titered2) [facility] [id number] 11:57:00 Test Item Value Reference Range Interpretation Comments OP ABORh Int (test code = OP ABORh Int) O POS [facility] [id number] 11:57:00 Test Item Value Reference Range Interpretation Comments OP ABSC Gel Interp Negative (06/17/22 6:57 (test code = OP ABSC AM) Gel Interp) [id number] 11:57:00 Test Item Value Reference Range Interpretation Comments Glucose Lvl (test code = Glucose Lvl) 95 70-99 [id number] 11:57:00 Test Item Value Reference Range Interpretation Comments BUN (test code = BUN) 60 7-22 [facility]PxqhldmWLXGGFPUA0711-55-73 11:57:00 Test Item Value Reference Range Interpretation Comments Creatinine Lvl (test code = Creatinine 6.84 0.50-1.40 Lvl) [facility]NhbvtmuYUTOQDYLK0977-58-78 11:57:00 Test Item Value Reference Range Interpretation Comments Sodium Lvl (test code = Sodium Lvl) 141 135-145 [place] [id number] 11:57:00 Test Item Value Reference Range Interpretation Comments Potassium Lvl (test code = Potassium 3.8 3.5-5.1 Lvl) [place] [id number] 11:57:00 Test Item Value Reference Range Interpretation Comments Chloride Lvl (test code = Chloride Lvl) 109 95-109 [place] [id number] 11:57:00 Test Item Value Reference Range Interpretation Comments CO2 (test code = CO2) 24 24-32 [place] [id number] 11:57:00 Test Item Value Reference Range Interpretation Comments Calcium Lvl (test code = Calcium Lvl) 8.6 8.5-10.5 [place] [id number] 11:57:00 Test Item Value Reference Range Interpretation Comments Total Protein (test code = Total 6.6 6.4-8.4 Protein) [facility]FddgnziYUMSISHGI4836-74-00 11:57:00 Test Item Value Reference Range Interpretation Comments Albumin Lvl (test code = Albumin Lvl) 3.3 3.5-5.0 [facility] CampusGgmnwrjHXPGVTJZO6418-95-97 11:57:00 Test Item Value Reference Range Interpretation Comments ALT (test code = ALT) 11 See_Comment [Auto mated message] The system which ge nerated this result transmit nicko reference range : <=65. The reference range was not used to interpr et this result as adebayo l/abnormal. [facility] CampusRebuhdiQDJNPJEYM2724-29-32 11:57:00 Test Item Value Reference Range Interpretation Comments AST (test code = AST) 7 See_Comment [Auto mated message] The system which ge nerated this result transmit nicko reference range : <=37. The reference range was not used to interpr et this result as adebayo l/abnormal. [place] [id number] 11:57:00 Test Item Value Reference Range Interpretation Comments Alk Phos (test code = Alk Phos) 48 39-136 [place] [id number] 11:57:00 Test Item Value Reference Range Interpretation Comments Bili Total (test code = Bili Total) 0.4 0.2-1.3 [facility]EgvaeazXVVKELVUQ8729-48-96 11:57:00 Test Item Value Reference Range Interpretation Comments AGAP (test code = AGAP) 11.8 10.0-20.0 [facility]PlbsrltSFINUWFEM4481-55-54 11:57:00 Test Item Value Reference Range Interpretation Comments B/C Ratio (test code = B/C Ratio) 9 1 6-25 [facility] CampusRcxsugdUBHYLXRWU9703-42-29 11:57:00 Test Item Value Reference Range Interpretation Comments Globulin (test code = Globulin) 3.3 2.7-4.2 [facility] CampusFppfhffVPWFPQXSZ7518-26-24 11:57:00 Test Item Value Reference Range Interpretation Comments A/G Ratio (test code = A/G Ratio) 1.0 1 0.7-1.6 [facility] CampusEjalyfoASEIMNKRJ1174-72-40 11:57:00 Test Item Value Reference Range Interpretation Comments eGFR (test code = eGFR) 8 [facility]EjfttkoLCFXHCZPX3366-58-67 11:57:00 Test Item Value Reference Range Interpretation Comments Bili Total (test code = Bili Total) 0.4 0.2-1.3 [facility] CampusUvywrzsYJKLMQRMT9998-28-36 11:57:00 Test Item Value Reference Range Interpretation Comments Bili Direct (test code 0.1 See_Comment [Aut omated message] The = Bili Direct) system which generated this result tra nsmitted reference range : <=0.3. The reference r carlos was not used to int erpret this result as adebayo l/abnormal. [facility] CampusXjfevygUIHYDKDFG2849-32-31 11:57:00 Test Item Value Reference Range Interpretation Comments Bili Indirect (test 0.3 See_Comment [Automa nicko message] The code = Bili Indirect) system which generated this result tra nsmitted reference range : <=1.0. The reference r carlos was not used to int erpret this result as normal/abnormal . [facility] CampusYpfhlgeVVLCUZCFE7275-03-05 11:57:00 Test Item Value Reference Range Interpretation Comments C-Peptide (test code = C-Peptide) 10.96 0.80-3.85 [facility] CampusYjdzcwqRFUDIYSZH4444-23-90 11:57:00 Test Item Value Reference Range Interpretation Comments Nicotine Lvl (test code = Nicotine Lvl) no gt [facility] CampusBjdskkuBPZKZDHUP8818-13-88 11:57:00 Test Item Value Reference Range Interpretation Comments Cotinine Lvl (test code = Cotinine Lvl) no gt [facility] CampusKrnmyjvOYVDKFULN4277-30-68 11:57:00 Test Item Value Reference Range Interpretation Comments Hgb A1C (test code = Hgb A1C) 5.3 [facility] CampusEsvfnkcAZJXYVTQJ9808-83-42 11:57:00 Test Item Value Reference Range Interpretation Comments Trig (test code = Trig) 55 [facility] CampusUsuvgjwDMRCLUGOF7893-21-55 11:57:00 Test Item Value Reference Range Interpretation Comments Chol (test code = Chol) 88 [facility] CampusTxligenGNKFTKVBQ0324-97-90 11:57:00 Test Item Value Reference Range Interpretation Comments HDL (test code = HDL) 37 [facility] CampusUkfguecWMHEZKYKV2299-45-75 11:57:00 Test Item Value Reference Range Interpretation Comments Chol/HDL Ratio (test code = Chol/HDL 2.38 1 4.00-7.30 Ratio) [facility] CampusJwkqaurTPIGURMQW6852-57-72 11:57:00 Test Item Value Reference Range Interpretation Comments LDL (Calculated) (test code = LDL 40 (Calculated)) [facility] CampusAvxpkfsSRCZAWFEC8197-30-55 11:57:00 Test Item Value Reference Range Interpretation Comments VLDL (test code = VLDL) 11 1 [facility] CampusCbsisqiORCGPHQEB7269-34-80 11:57:00 Test Item Value Reference Range Interpretation Comments Phosphorus (test code = Phosphorus) 6.5 2.5-4.5 [facility] CampusMzzjyhvJQXQMGBJY1115-90-36 11:57:00 Test Item Value Reference Range Interpretation Comments PSA (test code = PSA) 1.12 [facility] CampusQplvjdxLXUDWEDII5214-30-87 11:57:00 Test Item Value Reference Range Interpretation Comments LDH (test code = LDH) 137 98-192 [facility]YqucwjlDNWEKFVCED0212-04-06 11:57:00 Test Item Value Reference Range Interpretation Comments Segs (test code = Segs) 74.6 45.0-75.0 [facility] SystemBgsacdeDOORZYIRSV1614-86-71 11:57:00 Test Item Value Reference Range Interpretation Comments Lymphocytes (test code = Lymphocytes) 17.8 20.0-40.0 [facility] SystemPgzdklzSILBMSIHKQ3576-18-10 11:57:00 Test Item Value Reference Range Interpretation Comments Monocytes (test code = Monocytes) 5.4 2.0-12.0 [place] [address]-04-18 11:57:00 Test Item Value Reference Range Interpretation Comments Eosinophils (test code = 1.6 See_Comment [A utomated message] The Eosinophils) system which ge nerated this result tra nsmitted reference range : <=4.0. The reference r carlos was not used to int erpret this result as normal/abnormal . [place] [address]-04-18 11:57:00 Test Item Value Reference Range Interpretation Comments Basophils (test code = 0.6 See_Comment [Aut omated message] The Basophils) system which ge nerated this result tra nsmitted reference range : <=1.0. The reference r carlos was not used to int erpret this result as normal/abnormal . [address]04-18 11:57:00 Test Item Value Reference Range Interpretation Comments Neutrophils # (test code = Neutrophils 7.1 1.5-8.1 #) [place] [address]-04-18 11:57:00 Test Item Value Reference Range Interpretation Comments Lymphocytes # (test code = Lymphocytes 1.7 1.0-5.5 #) [place] [address]-04-18 11:57:00 Test Item Value Reference Range Interpretation Comments Monocytes # (test code 0.5 See_Comment [Aut omated message] The = Monocytes #) system which generated this result tra nsmitted reference range : <=0.8. The reference r carlos was not used to int erpret this result as normal/abnormal . [place] [address]-04-18 11:57:00 Test Item Value Reference Range Interpretation Comments Eosinophils # (test code 0.2 See_Comment [A utomated message] The = Eosinophils #) system whic h generated this result tra nsmitted reference range : <=0.5. The reference r carlos was not used to int erpret this result as normal/abnormal . [place] [address]-04-18 11:57:00 Test Item Value Reference Range Interpretation Comments Basophils # (test code 0.1 See_Comment [Aut omated message] The = Basophils #) system which generated this result tra nsmitted reference range : <=0.2. The reference r carlos was not used to int erpret this result as normal/abnormal . [facility] SystemCxiwpopLPLJVZXQKF5961-58-38 11:57:00 Test Item Value Reference Range Interpretation Comments PT (test code = PT) 13.4 s 12.0-14.7 [facility] SystemCqqnenwQSZFDPNAJN3219-43-19 11:57:00 Test Item Value Reference Range Interpretation Comments INR (test code = INR) 1.02 1 0.85-1.17 [facility] SystemTzedaqdSPMYVAMJAI1269-86-43 11:57:00 Test Item Value Reference Range Interpretation Comments PTT (test code = PTT) 29.2 s 22.9-35.8 [facility] SystemHigazyjDYYNWOUPAV8202-94-24 11:57:00 Test Item Value Reference Range Interpretation Comments WBC (test code = WBC) 9.6 3.7-10.4 [facility] SystemDusdocvNXUIVWJQEV8938-53-18 11:57:00 Test Item Value Reference Range Interpretation Comments RBC (test code = RBC) 3.28 4.70-6.10 [facility] SystemMxzvbaeHUYFFTJWXU4731-37-48 11:57:00 Test Item Value Reference Range Interpretation Comments Hgb (test code = Hgb) 10.3 14.0-18.0 [facility] SystemEqyppinBAFCAKPIVT0581-29-03 11:57:00 Test Item Value Reference Range Interpretation Comments Hct (test code = Hct) 31.9 42.0-54.0 [facility] SystemCarquzzVJJTHHWOFD9945-93-35 11:57:00 Test Item Value Reference Range Interpretation Comments MCV (test code = MCV) 97.3 80.0-94.0 [facility] SystemYozacjeVFKNBGWOLR0513-13-53 11:57:00 Test Item Value Reference Range Interpretation Comments MCH (test code = MCH) 31.3 pg 27.0-31.0 [facility] SystemGfethcfQGZRUZLHZT2613-14-49 11:57:00 Test Item Value Reference Range Interpretation Comments MCHC (test code = MCHC) 32.2 32.0-36.0 [facility] SystemOkhhozwVGJFFILARV1738-62-14 11:57:00 Test Item Value Reference Range Interpretation Comments RDW (test code = RDW) 16.6 11.5-14.5 [facility] SystemSibuupzTDPZGMSAEY2565-15-33 11:57:00 Test Item Value Reference Range Interpretation Comments Platelet (test code = Platelet) 209 133-450 [facility] SystemMvrscrdBYMIGZKEXB2928-50-09 11:57:00 Test Item Value Reference Range Interpretation Comments MPV (test code = MPV) 8.7 7.4-10.4 [place] [address]-04-18 11:57:00 Test Item Value Reference Range Interpretation Comments Glutam Acid Ab (test code = Glutam Acid no gt Ab) [facility]ryhzvoTHWWLZDWGD2521-29-89 11:57:00 Test Item Value Reference Range Interpretation Comments Hep Bs Ab (test code = Hep Bs Ab) no gt [facility] HospitalXqaebckOWNFTBJQSA1404-11-57 11:57:00 Test Item Value Reference Range Interpretation Comments Hep Bs Ag (test code Negative *NA*(06/17/22 = Hep Bs Ag) 6:57 AM) [place] [address]-04-18 11:57:00 Test Item Value Reference Range Interpretation Comments Hep C Ab (test code = Negative *NA*(06/17/22 Hep C Ab) 6:57 AM) [place] [address]-04-18 11:57:00 Test Item Value Reference Range Interpretation Comments HIV Ag/Ab 4th Gen Negative *NA*(06/17/22 (test code = HIV 6:57 AM) Ag/Ab 4th Gen) [place] [address]-04-18 11:57:00 Test Item Value Reference Range Interpretation Comments CMV IgG (test code = CMV IgG) no gt [facility] HospitalHnlsrwhSXHZTAAJUJ5962-84-73 11:57:00 Test Item Value Reference Range Interpretation Comments EBV VCA IgG (test code = EBV VCA IgG) 213.00 [place] 971803-04-18 11:57:00 Test Item Value Reference Range Interpretation Comments Hep A Tot (test code = Hep A Tot) REACTIVE [place] [address]-04-18 11:57:00 Test Item Value Reference Range Interpretation Comments HSV 1 IgG (test code = HSV 1 IgG) 22.60 [place] [address]-04-18 11:57:00 Test Item Value Reference Range Interpretation Comments HSV 2 IgG (test code = HSV 2 IgG) no gt [facility] HospitalKuwxlnaXFUIXINBGH1036-25-31 11:57:00 Test Item Value Reference Range Interpretation Comments T-Spot.TB (test code = T-Spot.TB) Negative [place] [address]-04-18 11:57:00 Test Item Value Reference Range Interpretation Comments T-Spot Pnl A Neg Ctrl Corrected (test 0 1 code = T-Spot Pnl A Neg Ctrl Corrected) [facility]ApyfsucYCDHQGIYSU7845-71-47 11:57:00 Test Item Value Reference Range Interpretation Comments T-Spot Pnl B Neg Ctrl Corrected (test 0 1 code = T-Spot Pnl B Neg Ctrl Corrected) [facility] WorthGsqakufJNFKTWZVDU0869-82-73 11:57:00 Test Item Value Reference Range Interpretation Comments T-Spot Neg Ctrl (test code = T-Spot Passed Neg Ctrl) [facility] WorthVjdkayiWCRQZJTRCL6465-18-85 11:57:00 Test Item Value Reference Range Interpretation Comments T-Spot Pos Ctrl (test code = T-Spot Passed Pos Ctrl) [facility] WorthUpuaexjFFMSOVXYNC3321-98-98 11:57:00 Test Item Value Reference Range Interpretation Comments Treponemal Ab (test code Non-Reactive = Treponemal Ab) *NA*(06/17/22 6:57 AM) [facility] WorthZhzirrbULWBJSRBLB5497-84-11 11:57:00 Test Item Value Reference Range Interpretation Comments Varicella IgG (test code = Varicella 912.50 IgG) [facility] WorthXvugbkeTEDVURAXLZ6485-21-30 11:57:00 Test Item Value Reference Range Interpretation Comments Mumps IgG (test code = Mumps IgG) no gt [facility] WorthXxddohtQQRLVBBRNH5147-17-93 11:57:00 Test Item Value Reference Range Interpretation Comments Rubella IgG (test code = Rubella IgG) no [facility]UinzftgZJEFFHCCZE4693-89-96 11:57:00 Test Item Value Reference Range Interpretation Comments Rubeola IgG (test code = Rubeola IgG) 174.00 [facility] WorthannREFERENCE LAB ISOFOTN4615-30-36 11:57:00 Test Item Value Reference Range Interpretation Comments Misc Quest (test code = Misc Quest) REPORT [facility] 25 edbipik1055-41-51 14:00:00 Test Item Value Reference Range Interpretation Comments VITAMIN 41 ng/mL 30-100 Vitamin D Statu s ? D,25-OH,TOTAL,I ? ? ? 25-OH Vitamin A (test code = D: Deficiency : ? ? 1989-) ? <20 ng/mLInsufficie ncy: ? 20 - 29 ng/mLOptimal: ? > or = 30 ng/mL For 25-OH Vitamin D testi ng on patients on D2-supplementat ion and patients fo r whom quantitati on of D2 and D3 fractions is required, the QuestAssureD(TM )25- OH VIT D, (D2,D 3), LC/MS/MS is recommended: or darek code 96402 (patients >2yrs).See Note 1 Note 1 For additional information, pl ease refer to http://educatio nDipJar/ faq/HQX983 (Thi s link is being provided for informational/e duca tional purposes only.) RAC (test code Performing = RAC) Organization Information: ? ?Site ID: RGA ? ?Name: [email or web address] ? ?Address: [address] [place] [phone] ? ?Director: ALBINA LEROY MD [facility]A, total and [id number] 14:00:00 Test Item Value Reference Interpretation Comments Range PSA, TOTAL (test 8.3 ng/mL See_Comment H [Automated message] code = 2857-1) The system miacosa generated this result transmitted ref erence range: < OR = 4 .0. The reference range was not used to int erpret this result as normal/abnormal . PSA, FREE (test 3.2 ng/mL code = 49068-0) PSA, % FREE (test 39 See_Comment PSA(ng/mL ) ? ? ?Free code = 81927-4) PSA(%) ? ? Estimated(x) Probability ? of Cancer(as%)0-2. 5 ?(*) ? Approx. 12.6- 4.0(1) ? 0-27(2) ? 24(3)4.1-10(4) ?0-10 ?56 ? 11-15 ? 28 ? 16-20 ? 20 ? 21-25 ? 16 ? >or = 26 ? 8 >10(+) ? N/A ? >50 References:(1)Alok parsons al.:Urology 60: 469-474 (2002) ? (2)Maribel issa al.:J.Urol 168: 922-925 (2002) ?Free PSA(% ) ? Sensitivity(%) ?Specificity(%) ?< or = 2 5 ?85 ?19 ?< or = 30 ?93 ? 9 ? (3)Maribel et al.:BETITO 277: 5462-3288 (1996 ) ? (4)Maribel et al.:BETITO 279: 6098-9946 (1997 ) (x)These estima wero vary with age, ethnicity, fami ly ? history and BECCA results.(*)The diagnostic usef ulness of % Free PSA h as not been ? establis hed in patients with t otal PSA below 2.6 ng/mL(+)In men with PSA above 10 ng /mL, prostate cancer risk is ? determined by total PSA alone . The Total PSA value from this assay syst em is standardized ag ainst the equimolar P SA standard. The t est result will be approximately 2 0% higher when com pared to the WHO-standardize d Total PSA (Siemens as say). Comparison of s erial PSA results deanna uld be interpreted wit h this fact in mind. P SA was performed using the Cady CoulterImmunoas say method. Values obtained from differentassay methods cannot be used interchangeably . PSAlevels, rega rdless of value, shoul d not be interpreteda s absolute eviden ce of the presence or absence ofdisea se. [Automated mess age] The system Ocapi generated this result transmitted ref erence range: >25 % (c alc). The reference r carlos was not used to interpret this result as normal/abnor mal. RAC (test code = Performing RAC) Organization Information: ? ?Site ID: IG ? ?Name: [email or web address] ? ?Address: [address] [place] [address] [place] [address] ? ?Director: ALBINA LEROY MD Lab Interpretation Abnormal (test code = 00391-7) [facility], free, [id number] 14:00:00 Test Item Value Reference Interpretation Comments Range TESTOSTERONE, 141 ng/dL 250-1100 L Men with clini get TOTAL, MS (test significant hypogonadal code = 2986-8) symptoms and testosterone valuesrepeatedl y in the range of the 20 0-300 ng/dL or less, may be nefit fromtestosteron e treatment after adequate risk and benefits counse ling. For additional info rmation, please refer tohttps://educa Zaaskon.Welcome Real-time/fa q/BZH110(This link is being p rovided for informational/e ducational purposes only.) (Note) This test was develo ped and its analytical performancechar acteristics have been deter mined by [employer]. It h as notbeen cleared or appr eduardo by the FDA. This assay has been validatedpursua nt to the CLIA regulation s and is used for clinical pu rposes. TESTOSTERONE, 25.4 pg/mL 35.0-155.0 L (Note)This wero t was FREE (test code = developed and its analytical 2991-8) performance mendez racteristics have been deter mined by [employer]. It h as not been cleared or appr eduardo by the FDA. This assay has been validated pursu ant to the CLIA regulation s and is used for clinical pu rposes. MDFmed jerlvf91 [facility] [address] [place] [address] [phone] 00Bakari Donovan MD REPO RT COMMENT:FASTING :NO RAC (test code = Performing RAC) Organization Information: ? ?Site ID: [id number] ? ?Name: [facility] ? ?Address: [address] [place] [address] [address] [place] [phone] ? ?Director: BAKARI DONOVAN MD Lab Abnormal Interpretation (test code = 18975-0) [facility] Health[facility] [id number] 06:00:00 Test Item Value Reference Range Interpretation Comments CULTURE, URINE, SEE NOTE ?CULTURE, U RINE, ROUTINE (test ROUTINE ? ?Rock ro code = Number: ? ? [id number]) ?[id number] ?Test Status: ? ? ? Final ?Specimen Source: ? Urine ?Specimen Quality: ?Adequate ?Result: ?No Growth RAC (test code = Performing RAC) Organization Information: ? ?Site ID: RGA ? ?Name: [email or web address] [place] ? ?Address: [address] [place] [phone] ? ?Director: ALBINA LEROY MD [facility] HealthTestosterone, free, [id number] 06:00:00 Test Item Value Reference Range Interpretation Comments TESTOSTERONE, NOT DONE ng/dL TEST NOT PERFO RMED TOTAL, MS Duplicate test. (test code = 2986-8) RAC (test code Performing = RAC) Organization Information: ? ?Site ID: [id number] ? ?Name: [facility] ? ?Address: [address] [place] [address] [place] [phone] ? ?Director: BAKARI DONOVAN MD [facility] HealthPSA, total and [id number] 06:00:00 Test Item Value Reference Range Interpretation Comments PSA, TOTAL NOT DONE ng/mL TEST NOT PERFOR MED No (test code = suitable specim en 2857-1) received.Please review the testrequire ments at [place] RAC (test Performing code = RAC) Organization Information: ? ?Site ID: IG ? ?Name: [email or web address] ? ?Address: [address] [place] [address] ? ?Director: ALBINA LEROY MD [facility] HealthVitamin D 25 [id number] 06:00:00 Test Item Value Reference Range Interpretation Comments VITAMIN NOT DONE ng/mL TEST NOT D,25-OH,TOTAL,IA PERFORMED (test code = Duplicate test. 1988-04) RAC (test code = Performing RAC) Organization Information: ? ?Site ID: RGA ? ?Name: [email or web address] ? ?Address: [address] [place] [phone] ? ?Director: ALBINA LEROY MD [facility] HealthPOCT urinalysis w/o [id number] 23:16:00 Test Item Value Reference Range Interpretation Comments Color, UA (test code = Yello w 5512113) Clarity, UA (test code Clear = 1075133) Glucose, UA (test code Negative Negative = 9592355) Bilirubin, UA (test Negative Negative code = 0718301) Ketones, UA (test code Negat nargis = 9837530) Spec Grav, UA (test 1.015 1.000-1.030 code = 3388432) Blood, UA (test code = Small 4968672) pH, UA (test code = 7.0 5.0-8.5 9128187) Protein, UA (test code 100(2+)mg/dL Negative, Trace, A = 4037646) 200(+2)mg/dL, 15/mg/dL Urobilinogen, UA (test 0.2 See_Comment [Aut omated code = 1237126) message] The system which generated this result transmit nicko reference range : 0.2. The refere nce range was not u sed to interpret th is result as normal/abnormal . Leukocytes, UA (test Small Negative, Trace A code = 9863828) Nitrite, UA (test code Negative Negative, Trace = 3523028) Appearance, Fluid Clear (test code = 9335-1) Lab Interpretation Abnormal (test code = 31258-0) [facility] HealthURINALYSIS WITH [id number] 22:24:00 Test Item Value Reference Range Interpretation Comments Color (test code = Lt. Yellow UCOLR) Clarity (test code Clear = UCLAR) Glucose (test code NEGATIVE NEGATIVE N = UGLUC) Bilirubin (test NEGATIVE NEGATIVE N code = UBILI) Ketones (test code NEGATIVE NEGATIVE N = UKET) Specific [place] 1.010 1.005-1.030 A (test code = USPGR) Blood (test code = MODERATE NEGATIVE A UBLD) PH (test code = 7.0 4.5-8.0 A UPH) Protein (test code 30 NEGATIVE A = UPROT) Urobilinogen (test 0.2 See_Comment N [Automat ed code = U UROB) message] The system which generated this result transmit nicko reference range : 0.2. The refere nce range was not u sed to interpret th is result as normal/abnormal . Nitrite (test code NEGATIVE NEGATIVE N = UNITR) Leukocyte Esterase NEGATIVE NEGATIVE N (test code = ULEUK) WBC (test code = 4-6 NONE,0-1,2-5,6-1 AA WBCUR) 0 RBC (test code = 25-30 0-5 A RBCUR) Epithial Cells 1-4 0-10 A (test code = U EPI) Mucous (test code = Small None Seen A UMUC) Bacteria (test code 1+ None Seen,Trace A = UBACT) Crystals Urine Moderate None Seen A (test code = Amorphous URCRYS) Phosphates STLMLCT HEAD W/O [id number] 21:17:42 [facility]Name: ZENIA JIMENES : 1955 Sex: MDISCUSSION:CT HEADCLINICAL HISTORY: DizzinessCOMPARISON: NoneTECHNIQUE: Multiple thin section images of the head were obtained from theposterior fossa to the vertex. All CT scans are performed usingdoseoptimization techniques as appropriate to a performed exam including automatedexposure control and/or standardized protocols for targeted exams where dose ismatched to indication/reason for exam/patient size.CONTRAST: NoneFINDINGS:Ventricular System: Non acute. No evidence for intraventricular hemorrhage orhydrocephalus.Cerebral/Cerebellar Hemispheres: Non acute. No evidence for intracranialhemorrhage or mass effect. Generalized atrophy present. Nonspecific scatteredperiventricular and other white matter changes present most likely representingsmall vessel ischemic disease in a patient of this given age. Vascularcalcifications seen.Osseous Structures and Soft Tissues: Nonacute.Sinuses/MastoidsPortions Visualized: NonacuteReconstructions: Not obtained. This does limit the exam.IMPRESSION:1. No acute intracranial hemorrhage or mass effect identified, given the abovelimitations.2. Chronic findings as stated above.Electronically signed by: Shree Wright 04/29/2022 21:13Dictated By: SHREE WRIGHTDate: 04/29/2022 21:17 [id number] 21:12:00 Test Item Value Reference Range Interpretation Comments Glucose (test code 142 mg/dl 75-110 H = GLU) BUN (test code = 54.0 mg/dl 6.0-17.0 H BUN) Creatinine (test 12.1 mg/dl 0.4-1.2 H code = CREA) Sodium (test code = 135 mmol/l 137-145 L NA) Potassium (test 3.9 mmol/l 3.5-5.0 code = K) Chloride (test code 102 mmol/l 98-107 = CL) CO2 (test code = 24 mmol/l 22-30 CO2) Calcium (test code 9.2 mg/dl 8.4-10.2 = CALC) T Protein (test 7.0 gm/dl 5.1-8.7 code = TP) Albumin (test code 2.8 gm/dl 3.5-4.6 L = ALB) A/G Ratio (test 0.7 % 1.1-2.2 L code = AGRAT) AST (SGOT) (test 8 U/L 11-36 L code = AST) ALT (SGPT) (test 11 U/L 11-40 code = ALT) Alkaline Phos (test 48 U/L 47-114 code = ALKP) Bilirubin, Total 0.4 mg/dl 0.2-1.2 (test code = TBIL) Globulin (test code 4.2 gm/dl 2.3-3.5 H = GLOBU) Anion Gap (test 9 mmol/l 5-15 code = GAP) Calcium, Corrected 10.2 mg/dl 8.4-10.2 Various f ormulas exist (test code = for corrected s vlad CALCCORR) calcium results , each yielding differ ent values. This co rrected result was base d on the formula: Co rrected Calcium = Serum Calcium + [0.8 * ( 4 - SerumAlbumin)] EGFR if 5 Swazi (test code mL/min/1.73m\\ = EGFRAA) S\\2 EGFR if Non- 4 Estimate d Glomerular Swazi (test code mL/min/1.73m\\ Filtrat ion Rate (eGFR) = EGFRNA) S\\2 Reference Inter vals Decision Points for 18 years and older and average body ma ss: >= 60 Does not exc lude kidney disease. 30 - 59 Suggests mod erate chronic kidney disease and indicates the need for furthe r investigation including asses sment of proteinuria and cardiovascular factors. < 30 U sually indicates a nee d for referral for assessment and management of c hronic kidney failure. STLMLTSH (Ultra Sensitive)2022-04-29 21:12:00 Test Item Value Reference Range Interpretation Comments TSH (test code = TSH) 7.72 mIU/L 0.47-4.68 H STLMLHIGH SENSITIVITY [id number] 21:01:00 Test Item Value Reference Range Interpretation Comments HIGH SENSITIVITY 24.4 ng/L 0.0-53.0 CHANGE IN T EST METHOD TROPONIN (test code = Yuri street in the test TNIH) method for Trop onin has gone into e ffect. We now test for High Sensitivity Tro ponin. The new units o f measure are ng/ L, and the new 99th percentile cuto ff of 34 ng/L for FEM ALBERTO and 53 ng/L for MAL E. New critical values will be called for a ny troponin greate r than or equal to 500 ng/L. STLMLCBC WITH AUTO [id number] 20:49:00 Test Item Value Reference Range Interpretation Comments WBC (test code = 9.37 10\\S\\3/ul 4.80-10.80 WBC) RBC (test code = 3.46 10\\S\\6/ul 4.70-6.10 L RBC) Hemoglobin (test 10.4 gm/dl 14.0-18.0 L code = HGB) Hematocrit (test 32.2 % 42.0-50.0 L code = HCT) MCV (test code = 93.1 fL 80.0-94.0 MCV) MCH (test code = 30.1 pg 27.0-31.0 MCH) MCHC (test code = 32.3 gm/dl 33.0-37.0 L MCHC) RDW (test code = 14.6 % 11.5-14.5 H RDWVC) Platelet (test code 232 10\\S\\3/ul 130-400 = PLT) MPV (test code = 10.5 fL 7.4-10.4 A "NOT MEASUR ED" MPV) RESULTS ARE DIS PLAYED WHEN THE INSTRU MENT HAS A SUPPRESSE D OR UNREPORTABLE RE SULT. THIS WILL MOST OFTEN HAPPEN WITH THE MPV WHEN THERE IS A N ABNORMAL PLATEL ET DISTRIBUTION DU E TO A CRITICAL LOW VA LUE OR PLATELET CLUMPI NG. THE RDW MAY BE SUPPRESSED IF T HERE ARE MULTIPLE PE AKS PRESENT ON THE RBC HISTOGRAM. IN T HIS CASE, A MANUAL REVIEW OF THE SLIDE WI LL BE PERFORMED, AND RBC MORPHOLOGY WILL BE NOTED ON THE RE PORT. NE% (test code = 70.3 % 42.0-75.0 NE) LY% (test code = 17.9 % 13.0-42.0 LY) MO% (test code = 6.6 % 4.0-14.0 MO) EO% (test code = 4.3 % 1.0-5.0 EO) BA% (test code = 0.6 % 0.0-3.0 BA) IG% (test code = 0.3 % 0.0-0.4 IG%) STLMLURINALYSIS WITH [id number] 21:33:00 Test Item Value Reference Range Interpretation Comments Color (test code = Yellow UCOLR) Clarity (test code = Clear UCLAR) Glucose (test code = 100 NEGATIVE A UGLUC) Bilirubin (test code = NEGATIVE NEGATIVE N UBILI) Ketones (test code = NEGATIVE NEGATIVE N UKET) Specific [place] (test 1.010 1.005-1.030 A code = USPGR) Blood (test code = MODERATE NEGATIVE A UBLD) PH (test code = UPH) 7.0 4.5-8.0 A Protein (test code = 100 NEGATIVE A UPROT) Urobilinogen (test 0.2 See_Comment N [Automat ed message] code = U UROB) The system [employer] generated this result transmit nicko reference range : 0.2. The refere nce range was not u sed to interpret th is result as normal/abnormal . Nitrite (test code = NEGATIVE NEGATIVE N UNITR) Leukocyte Esterase NEGATIVE NEGATIVE N (test code = ULEUK) WBC (test code = 0-2 NONE,0-1,2-5,6-10 AA WBCUR) RBC (test code = 50-60 0-5 A RBCUR) Epithial Cells (test 0-1 0-10 A code = U EPI) Mucous (test code = Small None Seen A UMUC) Bacteria (test code = None Seen None Seen,Trace N UBACT) Crystals Urine (test None Seen None Seen N code = URCRYS) Urine Casts (test code None Seen None Seen N = UR CAST) Urine Misc (test code None Seen None Seen N = UR MISC) [facility] [id number] 20:40:44 [facility] ([facility]Name: ZENIA JIMENES : 1955 Sex: MEXAM: CT ABDOMEN/PELVIS W/O CONTRASTHISTORY: [id number]: Abdominal pain.TECHNIQUE: Axial CT images acquired through the abdomen and pelvis withoutintravenous contrast. Multiplanarreconstructions were performed.COMPARISON: NoneFINDINGS:LOWER THORAX: There is a 1.7 cm nodule medially in the right lower lobe onseries 3 image 13. There is evidence of minimal rim calcification. TheHounsfield units are consistent with fat and this may represent a hamartoma.LIVER: Liver attenuation is unremarkable. There are multiple low attenuationlesions throughout the liver, most of which are too small to furthercharacterizebut likely represent simple cysts. The largest is posteriorly inthe right lower liver measuring 5.3 x 3.5 cm which is consistent with a cyst.BILIARY: There is a small amount of high attenuation material layeringposteriorly gallbladder which is likely sludge. Gallbladder otherwise appearsgrossly unremarkable. There is no biliary dilation. No biliary dilatation.SPLEEN: Unremarkable.ADRENALS: Unremarkable.PANCREAS: Scattered tiny calcifications are seen within the pancreas consistentwith prior or chronic pancreatitis.KIDNEYS/URETERS: There are innumerable cysts replacing a majority of the renalparenchyma bilaterally. Many of these lesions are indeterminate by Hounsfieldunits and are Bosniak category 2F lesions. There is no right hydronephrosis orhydroureter. There is mild left hydronephrosis and hydroureter with mildperiureteral stranding. This is nonspecific. No calculus is seen.GI TRACT: There isevidence of diverticulosis without diverticulitis. Theappendix is normal.PELVIC ORGANS/BLADDER: No abnormal pelvic masses. Bladder is mostly collapsed.The wall appears thickened which may be chronic ormay suggest cystitis,clinically correlate.PERITONEUM/RETROPERITONEUM: No free air. No free fluid.There is a peritonealdialysis catheter coiled within the pelvis.LYMPH NODES: Shotty lymph nodes are seenthroughout the retroperitoneum.VASCULAR: The patient has had prior endovascular repair of abdominal aorticaneurysm. The superior mesenteric artery has been stented as well. The aortameasures up to 4.6 x 3.6 cm. No significant aneurysm sac remains. Stents extendinto the common iliac arteries bilaterally as would be expected.BONES AND SOFT TISSUES: There are degenerative changes of the lumbosacral spine.IMPRESSION:FINDINGS CONSISTENT WITH SIGNIFICANT POLYCYSTIC KIDNEY DISEASE. THERE AREMULTIPLE LESIONS WHICH ARE CATEGORY 2F LESIONS AND ARE INDETERMINANT. THERE ISNONSPECIFIC MILD LEFT HYDRONEPHROSIS AND HYDROURETER WITH PERIURETERALSTRANDING. THERE IS NO OBSTRUCTING LESION OR CALCULUS SEEN. THIS COULDREPRESENT ASCENDING URINARY TRACT INFECTION.THE BLADDER IS MOSTLY COLLAPSED BUT THE WALL APPEARS SLIGHTLY THICKENED. THISMAY BE CHRONIC OR REPRESENT CYSTITIS.PERITONEAL DIALYSIS CATHETER NOTED.HEPATIC CYSTS.1.7 CM NODULE MEDIALLY IN THE RIGHT LOWER LOBE WITH HOUNSFIELD UNITS CONSISTENTWITH FAT. 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.GALLBLADDER SLUDGE.DIVERTICULOSIS.STATUS POST ABDOMINAL AORTIC ANEURYSM ENDOVASCULAR REPAIR.DEGENERATIVE CHANGES LUMBOSACRAL SPINE.DOSE REDUCTION TECHNIQUEAll CT scans at this facility use dose modulation, iterative reconstruction,and/or weight-based dosing when appropriate to reduce radiation dose to as lowas reasonably achievable.Electronically signed by: Ronald Ashraf 04/26/2022 20:37Dictated By: SCAR ASHRAFate: 04/26/2022 20:40STLMLLIPASE 2022-04-26 20:16:00 Test Item Value Reference Range Interpretation Comments Lipase (test code = LIPA) 90 U/L 8-223 [id number] 20:16:00 Test Item Value Reference Range Interpretation Comments Glucose (test code 105 mg/dl 75-110 = GLU) BUN (test code = 43.0 mg/dl 6.0-17.0 H BUN) Creatinine (test 9.3 mg/dl 0.4-1.2 H code = CREA) Sodium (test code = 140 mmol/l 137-145 NA) Anion Gap (test 13 mmol/l 5-15 code = GAP) Potassium (test 4.1 mmol/l 3.5-5.0 code = K) Chloride (test code 101 mmol/l 98-107 = CL) CO2 (test code = 26 mmol/l 22-30 CO2) Calcium (test code 9.4 mg/dl 8.4-10.2 = CALC) T Protein (test 7.5 gm/dl 5.1-8.7 code = TP) Albumin (test code 3.2 gm/dl 3.5-4.6 L = ALB) A/G Ratio (test 0.7 % 1.1-2.2 L code = AGRAT) AST (SGOT) (test 16 U/L 11-36 code = AST) ALT (SGPT) (test 15 U/L 11-40 code = ALT) Alkaline Phos (test 58 U/L 47-114 code = ALKP) Bilirubin, Total 0.7 mg/dl 0.2-1.2 (test code = TBIL) Globulin (test code 4.3 gm/dl 2.3-3.5 H = GLOBU) Calcium, Corrected 10.0 mg/dl 8.4-10.2 Various f ormulas exist (test code = for corrected s vlad CALCCORR) calcium results , each yielding differ ent values. This co rrected result was base d on the formula: Co rrected Calcium = Serum Calcium + [0.8 * ( 4 - SerumAlbumin)] EGFR if 7 Swazi (test code mL/min/1.73m\\ = EGFRAA) S\\2 EGFR if Non- 6 Estimate d Glomerular Swazi (test code mL/min/1.73m\\ Filtrat ion Rate (eGFR) = EGFRNA) S\\2 Reference Inter vals Decision Points for 18 years and older and average body ma ss: >= 60 Does not exc lude kidney disease. 30 - 59 Suggests mod erate chronic kidney disease and indicates t he need for further investigation including asses sment of proteinuria and cardiovascular factors. < 30 U sually indicates a nee d for referral for assessment and management of c hronic kidney failure. STLMLCBC WITH AUTO [id number] 19:50:00 Test Item Value Reference Range Interpretation Comments WBC (test code = 14.58 4.80-10.80 H WBC) 10\\S\\3/ul RBC (test code = 3.87 10\\S\\6/ul 4.70-6.10 L RBC) Hemoglobin (test 11.8 gm/dl 14.0-18.0 L code = HGB) Hematocrit (test 36.0 % 42.0-50.0 L code = HCT) MCV (test code = 93.0 fL 80.0-94.0 MCV) MCH (test code = 30.5 pg 27.0-31.0 MCH) MCHC (test code = 32.8 gm/dl 33.0-37.0 L MCHC) RDW (test code = 15.2 % 11.5-14.5 H RDWVC) Platelet (test code 231 10\\S\\3/ul 130-400 = PLT) MPV (test code = 10.1 fL 7.4-10.4 A "NOT MEASUR ED" MPV) RESULTS ARE DIS PLAYED WHEN THE INSTRU MENT HAS A SUPPRESSE D OR UNREPORTABLE RE SULT. THIS WILL MOST OFTEN HAPPEN WITH THE MPV WHEN THERE IS A N ABNORMAL PLATEL ET DISTRIBUTION DU E TO A CRITICAL LOW VA LUE OR PLATELET CLUMPI NG. THE RDW MAY BE SUPPRESSED IF T HERE ARE MULTIPLE PE AKS PRESENT ON THE RBC HISTOGRAM. IN T HIS CASE, A MANUAL REVIEW OF THE SLIDE WI LL BE PERFORMED, AND RBC MORPHOLOGY WILL BE NOTED ON THE RE PORT. NE% (test code = 78.4 % 42.0-75.0 H NE) LY% (test code = 11.2 % 13.0-42.0 L LY) MO% (test code = 8.8 % 4.0-14.0 MO) EO% (test code = 0.8 % 1.0-5.0 L EO) BA% (test code = 0.5 % 0.0-3.0 BA) IG% (test code = 0.3 % 0.0-0.4 IG%) STLMLPOCT urinalysis w/o [id number] 22:11:00 Test Item Value Reference Range Interpretation Comments Color, UA (test code = Yello w 7314037) Clarity, UA (test code Clear = 9915355) Glucose, UA (test code 100 mg/dL Negative A = 9018781) Bilirubin, UA (test Negative Negative code = 7732445) Ketones, UA (test code Negat nargis = 3558068) Spec Grav, UA (test 1.000-1.030 code = 3572812) Blood, UA (test code = Trace 7791578) pH, UA (test code = 5.0-8.5 2106904) Protein, UA (test code 30(+1) mg/dL Negative, Trace, A = 9880359) 200(+2)mg/dL, 15/mg/dL Urobilinogen, UA (test See_Comment [Aut omated code = 1261075) message] The system which generated this result transmit nicko reference range : 0.2. The refere nce range was not u sed to interpret th is result as normal/abnormal . Leukocytes, UA (test Trace Negative, Trace code = 2668436) Nitrite, UA (test code Negative Negative, Trace = 9830233) Appearance, Fluid Clear (test code = 9335-1) Lab Interpretation Abnormal (test code = 76481-5) [id number] 15:33:00 Test Item Value Reference Range Interpretation Comments T-Spot.TB (test code = T-Spot.TB) Negative [id number] 15:33:00 Test Item Value Reference Range Interpretation Comments T-Spot Pnl A Neg Ctrl Corrected (test 0 1 code = T-Spot Pnl A Neg Ctrl Corrected) [id number] 15:33:00 Test Item Value Reference Range Interpretation Comments T-Spot Pnl B Neg Ctrl Corrected (test 0 1 code = T-Spot Pnl B Neg Ctrl Corrected) [place] [address]-05-03 15:33:00 Test Item Value Reference Range Interpretation Comments T-Spot Neg Ctrl (test code = T-Spot Passed Neg Ctrl) [facility] [id number] 15:33:00 Test Item Value Reference Range Interpretation Comments T-Spot Pos Ctrl (test code = T-Spot Passed Pos Ctrl) [place] [address]-05-03 15:33:00 Test Item Value Reference Range Interpretation Comments T-Spot.TB (test code = T-Spot.TB) Negative [place] [address]-05-03 15:33:00 Test Item Value Reference Range Interpretation Comments T-Spot Pnl A Neg Ctrl Corrected (test 0 1 code = T-Spot Pnl A Neg Ctrl Corrected) [place] [address]-05-03 15:33:00 Test Item Value Reference Range Interpretation Comments T-Spot Pnl B Neg Ctrl Corrected (test 0 1 code = T-Spot Pnl B Neg Ctrl Corrected) [place] [address]-05-03 15:33:00 Test Item Value Reference Range Interpretation Comments T-Spot Neg Ctrl (test code = T-Spot Passed Neg Ctrl) [place] [address]-05-03 15:33:00 Test Item Value Reference Range Interpretation Comments T-Spot Pos Ctrl (test code = T-Spot Passed Pos Ctrl) [facility] pathology [id number] 13:05:21 Test Item Value Reference Range Interpretation Comments Case number (test [id number] code = 7452679) Surgical pathology See link below for PDF report (test code = Lab Report 2255) Result status (test This is Supplemental code = 9685229) Report for [id number] [facility] pathology [id number] 13:05:21 Test Item Value Reference Range Interpretation Comments Case number (test [id number] code = 6129738) Surgical pathology See link below for PDF report (test code = Lab Report 2255) Result status (test This is Supplemental code = 8506971) Report for [id number] [facility] pathology [id number] 13:05:21 Test Item Value Reference Range Interpretation Comments Case number (test [id number] code = 5698436) Surgical pathology See link below for PDF report (test code = Lab Report 2255) Result status (test This is Supplemental code = 9132488) Report for [id number] pathology [id number] 13:05:21 Test Item Value Reference Range Interpretation Comments Case number (test [id number] code = 7342177) Surgical pathology See link below for PDF report (test code = Lab Report 2255) Result status (test This is Supplemental code = 9127898) Report for [id number] [place] [address] pathology [id number] 13:05:21 Test Item Value Reference Range Interpretation Comments Case number (test [id number] code = 4628419) Surgical pathology See link below for PDF report (test code = Lab Report 2255) Result status (test This is Supplemental code = 3318992) Report for [id number] [place] [address] pathology [id number] 13:05:21 Test Item Value Reference Range Interpretation Comments Case number (test [id number] code = 3572084) Surgical pathology See link below for PDF report (test code = Lab Report 2255) Result status (test This is Supplemental code = 9099979) Report for [address] pathology [id number] 13:05:21 Test Item Value Reference Range Interpretation Comments Case number (test [id number] code = 1273875) Surgical pathology See link below for PDF report (test code = Lab Report 2255) Result status (test This is Supplemental code = 3460238) Report for [id number] [place] [address] pathology [id number] 13:05:21 Test Item Value Reference Range Interpretation Comments Case number (test [id number] code = 3229641) Surgical pathology See link below for PDF report (test code = Lab Report 2255) Result status (test This is Supplemental code = 2944100) Report for [id number] [place] [address] pathology [id number] 13:05:21 Test Item Value Reference Range Interpretation Comments Case number (test [id number] code = 4101738) Surgical pathology See link below for PDF report (test code = Lab Report 2255) Result status (test This is Supplemental code = 3266772) [id number] [facility] [id number] 13:05:21 Test Item Value Reference Range Interpretation Comments Case number (test [id number] code = 3924019) Surgical pathology See link below for PDF report (test code = Lab Report 2255) Result status (test This is Supplemental code = 8865725) Report for [id number] [facility]2022-03-27 14:19:00 Test Item Value Reference Range Interpretation Comments Anaerobic No anaerobic Specimen culture isolate organisms InformationS pecimen (test code = isolated. Source: Periton eal 00912-7) fluidSpecimen S ite: [facility]2022-03-27 14:19:00 Test Item Value Reference Range Interpretation Comments Anaerobic No anaerobic Specimen culture isolate organisms InformationS pecimen (test code = isolated. Source: Periton eal 40060-6) fluidSpecimen S ite: [facility]2022-03-27 14:19:00 Test Item Value Reference Range Interpretation Comments Anaerobic No anaerobic Specimen culture isolate organisms InformationS pecimen (test code = isolated. Source: Periton eal 05101-3) fluidSpecimen S ite: [facility]2022-03-27 14:19:00 Test Item Value Reference Range Interpretation Comments Anaerobic No anaerobic Specimen culture isolate organisms InformationS pecimen (test code = isolated. Source: Periton eal 65504-8) fluidSpecimen S ite: [facility]2022-03-27 14:19:00 Test Item Value Reference Range Interpretation Comments Anaerobic No anaerobic Specimen culture isolate organisms InformationS pecimen (test code = isolated. Source: Periton eal 41199-8) fluidSpecimen S ite: [facility]2022-03-27 14:19:00 Test Item Value Reference Range Interpretation Comments Anaerobic No anaerobic Specimen culture isolate organisms InformationS pecimen (test code = isolated. Source: Periton eal 31146-9) fluidSpecimen S ite: [facility]2022-03-27 14:19:00 Test Item Value Reference Range Interpretation Comments Anaerobic No anaerobic Specimen culture isolate organisms InformationS pecimen (test code = isolated. Source: Periton eal 36365-3) fluidSpecimen S ite: [facility] [id number] 14:19:00 Test Item Value Reference Range Interpretation Comments Anaerobic No anaerobic Specimen culture isolate organisms InformationS pecimen (test code = isolated. Source: Periton eal 48535-4) fluidSpecimen S ite: [facility]2022-03-27 14:19:00 Test Item Value Reference Range Interpretation Comments Anaerobic No anaerobic Specimen culture isolate organisms InformationS pecimen (test code = isolated. Source: Periton eal 05351-6) fluidSpecimen S ite: [facility]2022-03-27 14:19:00 Test Item Value Reference Range Interpretation Comments Anaerobic No anaerobic Specimen culture isolate organisms InformationS pecimen (test code = isolated. Source: Periton eal 56768-7) fluidSpecimen [facility] [id number] 18:24:00 Test Item Value Reference Range Interpretation Comments Aerobic culture No growth Specimen isolate (test after 3 days. InformationSp ecimen code = 64820-6) Source: Cris toneal fluidSpecimen S ite[facility] [id number] 18:24:00 Test Item Value Reference Range Interpretation Comments Aerobic culture No growth Specimen isolate (test after 3 days. InformationSp ecimen code = 38833-5) Source: Cris toneal fluidSpecimen S ite: [facility] [id number] 18:24:00 Test Item Value Reference Range Interpretation Comments Aerobic culture No growth Specimen isolate (test after 3 days. InformationSp ecimen code = 54922-3) Source: Cris toneal fluidSpecimen S ite: [facility] [id number] 18:24:00 Test Item Value Reference Range Interpretation Comments Aerobic culture No growth Specimen isolate (test after 3 days. InformationSp ecimen code = 23004-2) Source: Cris toneal fluidSpecimen S ite: [facility] [id number] 18:24:00 Test Item Value Reference Range Interpretation Comments Aerobic culture No growth Specimen isolate (test after 3 days. InformationSp ecimen code = 49554-8) Source: Cris toneal fluidSpecimen S ite[facility] [id number] 18:24:00 Test Item Value Reference Range Interpretation Comments Aerobic culture No growth Specimen isolate (test after 3 days. InformationSp ecimen code = 46557-9) Source: Cris toneal fluidSpecimen S ite[facility] [id number] 18:24:00 Test Item Value Reference Range Interpretation Comments Aerobic culture No growth Specimen isolate (test after 3 days. InformationSp ecimen code = 10388-2) Source: Cris toneal fluidSpecimen S ite[facility] [id number] 18:24:00 Test Item Value Reference Range Interpretation Comments Aerobic culture No growth Specimen isolate (test after 3 days. InformationSp ecimen code = 96334-8) Source: Cris toneal fluidSpecimen S ite: [facility] [id number] 18:24:00 Test Item Value Reference Range Interpretation Comments Aerobic culture No growth Specimen isolate (test after 3 days. InformationSp ecimen code = 21819-4) Source: Cris toneal fluidSpecimen S ite: [facility] [id number] 18:24:00 Test Item Value Reference Range Interpretation Comments Aerobic culture No growth Specimen isolate (test after 3 days. InformationSp ecimen code = 38727-8) Source: Cris toneal fluidSpecimen S ite: [facility] [id number] 15:13:45 Test Item Value Reference Range Interpretation Comments Ventricular rate (test code = 253) Atrial rate (test code = 255) HI interval (test code = 266) QRSD interval [...] wave inversion now evident in Lateral leads- [address]2022-03-23 15:13:45 Test Item Value Reference Range Interpretation Comments Ventricular rate (test code = 253) Atrial rate (test code = 255) HI interval (test code = 266) QRSD interval [...] wave inversion now evident in Lateral leads- [address]2022-03-23 15:13:45 Test Item Value Reference Range Interpretation Comments Ventricular rate (test code = 253) Atrial rate (test code = 255) HI interval (test code = 266) QRSD interval [...] wave inversion now evident in Lateral leads- [address]2022-03-23 15:13:45 Test Item Value Reference Range Interpretation Comments Ventricular rate (test 86 code = 253) Atrial rate (test code 86 = 255) HI interval (test code 240 = 266) QRSD interval (test 58 code = 260) QT interval (test code 336 = 264) QTC interval (test 402 code = 265) P axis 1 (test code = 95 267) QRS axis 1 (test code 6 = 268) T wave axis (test code 50 = 270) EKG impression (test Sinus rhythm [...] wave inversion now evident in Lateral leads- [address]2022-03-23 15:13:45 Test Item Value Reference Range Interpretation Comments Ventricular rate (test 86 code = 253) Atrial rate (test code 86 = 255) HI interval (test code 240 = 266) QRSD interval (test 58 code = 260) QT interval (test code 336 = 264) QTC interval (test 402 code = 265) P axis 1 (test code = 95 267) QRS axis 1 (test code 6 = 268) T wave axis (test code 50 = 270) EKG impression (test Sinus rhythm [...] wave inversion now evident in Lateral leads- [address]2022-03-23 15:13:45 Test Item Value Reference Range Interpretation Comments Ventricular rate (test 86 code = 253) Atrial rate (test code 86 = 255) HI interval (test code 240 = 266) QRSD interval (test 58 code = 260) QT interval (test code 336 = 264) QTC interval (test 402 code = 265) P axis 1 (test code = 95 267) QRS axis 1 (test code 6 = 268) T wave axis (test code 50 = 270) EKG impression (test Sinus rhythm [...] wave inversion now evident in Lateral leads- [address]2022-03-23 15:13:45 Test Item Value Reference Range Interpretation Comments Ventricular rate (test 86 code = 253) Atrial rate (test code 86 = 255) HI interval (test code 240 = 266) QRSD interval (test 58 code = 260) QT interval (test code 336 = 264) QTC interval (test 402 code = 265) P axis 1 (test code = 95 267) QRS axis 1 (test code 6 = 268) T wave axis (test code 50 = 270) EKG impression (test Sinus rhythm [...] wave inversion now evident in Lateral leads- [address]2022-03-23 15:13:45 Test Item Value Reference Range Interpretation Comments Ventricular rate (test 86 code = 253) Atrial rate (test code 86 = 255) HI interval (test code 240 = 266) QRSD interval (test 58 code = 260) QT interval (test code 336 = 264) QTC interval (test 402 code = 265) P axis 1 (test code = 95 267) QRS axis 1 (test code 6 = 268) T wave axis (test code 50 = 270) EKG impression (test Sinus rhythm [...] wave inversion now evident in Lateral leads- [address]2022-03-23 15:13:45 Test Item Value Reference Range Interpretation Comments Ventricular rate (test 86 code = 253) Atrial rate (test code 86 = 255) HI interval (test code 240 = 266) QRSD interval (test 58 code = 260) QT interval (test code 336 = 264) QTC interval (test 402 code = 265) P axis 1 (test code = 95 267) QRS axis 1 (test code 6 = 268) T wave axis (test code 50 = 270) EKG impression (test Sinus rhythm [...] wave inversion now evident in Lateral leads- [address]2022-03-23 15:13:45 Test Item Value Reference Range Interpretation Comments Ventricular rate (test 86 code = 253) Atrial rate (test code 86 = 255) HI interval (test code 240 = 266) QRSD interval (test 58 code = 260) QT interval (test code 336 = 264) QTC interval (test 402 code = 265) P axis 1 (test code = 95 267) QRS axis 1 (test code 6 = 268) T wave axis (test code 50 = 270) EKG impression (test Sinus rhythm [...] wave inversion now evident in Lateral leads- [facility] [id number] 12:13:00 Test Item Value Reference Range Interpretation Comments Gram stain No WBC's or Specimen isolate (test organisms seen. Information Specimen code = 1469) Source: Periton eal fluidSpecimen S ite: [facility] [id number] 12:13:00 Test Item Value Reference Range Interpretation Comments Gram stain No WBC's or Specimen isolate (test organisms seen. Information Specimen code = 1469) Source: Periton eal fluidSpecimen S ite: [facility] [id number] 12:13:00 Test Item Value Reference Range Interpretation Comments Gram stain No WBC's or Specimen isolate (test organisms seen. Information Specimen code = 1469) Source: Periton eal fluidSpecimen S ite: [facility] [id number] 12:13:00 Test Item Value Reference Range Interpretation Comments Gram stain No WBC's or Specimen isolate (test organisms seen. Information Specimen code = 1469) Source: Periton eal fluidSpecimen S ite: [facility] [id number] 12:13:00 Test Item Value Reference Range Interpretation Comments Gram stain No WBC's or Specimen isolate (test organisms seen. Information Specimen code = 1469) Source: Periton eal fluidSpecimen S ite: [facility] [id number] 12:13:00 Test Item Value Reference Range Interpretation Comments Gram stain No WBC's or Specimen isolate (test organisms seen. Information Specimen code = 1469) Source: Periton eal fluidSpecimen S ite: [facility] [id number] 12:13:00 Test Item Value Reference Range Interpretation Comments Gram stain No WBC's or Specimen isolate (test organisms seen. Information Specimen code = 1469) Source: Periton eal fluidSpecimen S ite: [facility] [id number] 12:13:00 Test Item Value Reference Range Interpretation Comments Gram stain No WBC's or Specimen isolate (test organisms seen. Information Specimen code = 1469) Source: Periton eal fluidSpecimen S ite: [facility] [id number] 12:13:00 Test Item Value Reference Range Interpretation Comments Gram stain No WBC's or Specimen isolate (test organisms seen. Information Specimen code = 1469) Source: Periton eal fluidSpecimen S ite: [facility] [id number] 12:13:00 Test Item Value Reference Range Interpretation Comments Gram stain No WBC's or Specimen isolate (test organisms seen. Information Specimen code = 1469) Source: Periton eal fluidSpecimen S ite: [facility] [id number] 02:38:00 Test Item Value Reference Range Interpretation Comments Urine culture (test SEE COMMENT Bacteriu kayden screen code = 8129325) negative. [facility] [id number] 02:38:00 Test Item Value Reference Range Interpretation Comments Urine culture (test SEE COMMENT Bacteriu kayden screen code = 2015116) negative. [facility]2022-03-22 02:38:00 Test Item Value Reference Range Interpretation Comments Urine culture (test SEE COMMENT Bacteriu kayden screen code = 2147101) negative. [facility]2022-03-22 02:38:00 Test Item Value Reference Range Interpretation Comments Urine culture (test SEE COMMENT Bacteriu kayden screen code = 4437240) negative. [facility]2022-03-22 02:38:00 Test Item Value Reference Range Interpretation Comments Urine culture (test SEE COMMENT Bacteriu kayden screen code = 4444331) negative. [facility]2022-03-22 02:38:00 Test Item Value Reference Range Interpretation Comments Urine culture (test SEE COMMENT Bacteriu kayden screen code = 3984066) negative. [place] [id number] 02:38:00 Test Item Value Reference Range Interpretation Comments Urine culture (test SEE COMMENT Bacteriu kayden screen code = 0062238) negative. [facility]2022-03-22 02:38:00 Test Item Value Reference Range Interpretation Comments Urine culture (test SEE COMMENT Bacteriu kayden screen code = 3007570) negative. [facility]2022-03-22 02:38:00 Test Item Value Reference Range Interpretation Comments Urine culture (test SEE COMMENT Bacteriu kayden screen code = 0819853) negative. [facility]2022-03-22 02:38:00 Test Item Value Reference Range Interpretation Comments Urine culture (test SEE COMMENT Bacteriu kayden screen code = 0301695) negative. [address]02-07 18:22:00 Test Item Value Reference Range Interpretation Comments Lambda Free Light Chains (test code = 74.0 Lambda Free Light Chains) [address]02-07 18:22:00 Test Item Value Reference Range Interpretation Comments Ronda/Lambda Free Light Chains Ratio 1.65 1 (test code = Ronda/Lambda Free Light Chains Ratio) [place] [address]-02-07 18:22:00 Test Item Value Reference Range Interpretation Comments CMV IgG (test code = CMV IgG) no gt [place] [address]-02-07 18:22:00 Test Item Value Reference Range Interpretation Comments EBV VCA IgG (test code = EBV VCA IgG) 239.00 [place] [address]-02-07 18:22:00 Test Item Value Reference Range Interpretation Comments HIV Ag/Ab 4th Gen Negative *NA*(04/08/21 (test code = HIV 12:22 PM) Ag/Ab 4th Gen) [place] [address]-02-07 18:22:00 Test Item Value Reference Range Interpretation Comments Hep A Tot (test code = Hep A Tot) REACTIVE [place] 971802-02-07 18:22:00 Test Item Value Reference Range Interpretation Comments Hep Bs Ab (test code = Hep Bs Ab) no gt [place] 971802-02-07 18:22:00 Test Item Value Reference Range Interpretation Comments Hep B Core Ab (test code = Hep B NON-REACTIVE Core Ab) [place] [address]-02-07 18:22:00 Test Item Value Reference Range Interpretation Comments Hep Bs Ag (test code Negative *NA*(04/08/21 = Hep Bs Ag) 12:22 PM) [place] [address]-02-07 18:22:00 Test Item Value Reference Range Interpretation Comments Hep C Ab (test code = Hep C Ab) NON-REACTIVE [place] 971802-02-07 18:22:00 Test Item Value Reference Range Interpretation Comments Hep Signal to Cut-Off (test code = Hep 0.01 1 Signal to Cut-Off) [place] 971802-02-07 18:22:00 Test Item Value Reference Range Interpretation Comments HSV 1 IgG (test code = HSV 1 IgG) 26.60 [place] 971802-02-07 18:22:00 Test Item Value Reference Range Interpretation Comments HSV 2 IgG (test code = HSV 2 IgG) no gt [place] 971802-02-07 18:22:00 Test Item Value Reference Range Interpretation Comments T-Spot.TB (test code = T-Spot.TB) TNP [place] 971802-02-07 18:22:00 Test Item Value Reference Range Interpretation Comments T-Spot Pnl A Neg Ctrl Corrected (test TNP code = T-Spot Pnl A Neg Ctrl Corrected) [place] 971802-02-07 18:22:00 Test Item Value Reference Range Interpretation Comments T-Spot Pnl B Neg Ctrl Corrected (test TNP code = T-Spot Pnl B Neg Ctrl Corrected) [place] 971802-02-07 18:22:00 Test Item Value Reference Range Interpretation Comments T-Spot Neg Ctrl (test code = T-Spot Neg TNP Ctrl) [place] 971802-02-07 18:22:00 Test Item Value Reference Range Interpretation Comments T-Spot Pos Ctrl (test code = T-Spot Pos TNP Ctrl) [place] 971802-02-07 18:22:00 Test Item Value Reference Range Interpretation Comments Toxoplasma IgG (test code = Toxoplasma no gt IgG) [place] 971802-02-07 18:22:00 Test Item Value Reference Range Interpretation Comments Toxoplasma IgM (test code = Toxoplasma no gt IgM) [place] [address]-02-07 18:22:00 Test Item Value Reference Range Interpretation Comments Treponemal Ab (test code Non-Reactive = Treponemal Ab) 42(04/08/21 12:22 PM) [place] 971802-02-07 18:22:00 Test Item Value Reference Range Interpretation Comments Varicella IgG (test code = Varicella 2806.00 IgG) [id number] 18:22:00 Test Item Value Reference Range Interpretation Comments Mumps IgG (test code = Mumps IgG) no gt [facility] WorthTzrwmdvGILYGPJUFA4888-79-26 18:22:00 Test Item Value Reference Range Interpretation Comments Rubella IgG (test code = Rubella IgG) no gt [facility] WorthXsuwdjlHSGWKKDQDO4108-50-94 18:22:00 Test Item Value Reference Range Interpretation Comments Rubeola IgG (test code = Rubeola IgG) 204.00 [facility] WorthWbfhfhsDOHSEQ2686-44-30 18:22:00 Test Item Value Reference Range Interpretation Comments Trig (test code = Trig) 209 [facility] WorthHepethtHVXDVJ2971-25-17 18:22:00 Test Item Value Reference Range Interpretation Comments Chol (test code = Chol) 209 [facility] WorthZpfbfniKXFANM7191-74-17 18:22:00 Test Item Value Reference Range Interpretation Comments HDL (test code = HDL) 33 [facility] WorthFucjwhgQRNRSD7816-69-64 18:22:00 Test Item Value Reference Range Interpretation Comments CHD Risk (test code = CHD Risk) 6.33 1 4.00-7.30 [facility] WorthIwdgiyzAANWGY3997-87-31 18:22:00 Test Item Value Reference Range Interpretation Comments LDL (Calculated) (test code = LDL 134 (Calculated)) [facility] WorthTxdxonzXJGLBI1234-66-06 18:22:00 Test Item Value Reference Range Interpretation Comments VLDL (test code = VLDL) 42 1 [facility] WorthannPARASITOLOGY - [id number] 18:22:00 Test Item Value Reference Range Interpretation Comments Strongyloides Antibodies (test code NEGATIVE = Strongyloides Antibodies) [facility] [id number] 18:22:00 Test Item Value Reference Range Interpretation Comments PTH Intact (test code = PTH Intact) 511.0 18.4-80.1 [facility]annREFERENCE LAB [id number] 18:22:00 Test Item Value Reference Range Interpretation Comments Misc Quest (test code = Misc Quest) REPORT [facility] [id number] 18:22:00 Test Item Value Reference Range Interpretation Comments Nicotine Lvl (test code = Nicotine Lvl) no gt [facility] [id number] 18:22:00 Test Item Value Reference Range Interpretation Comments Cotinine Lvl (test code = Cotinine Lvl) no gt [facility]2022-02-07 18:22:00 Test Item Value Reference Range Interpretation Comments Hgb A1C (test code = Hgb A1C) 5.7 [facility]2022-02-07 18:22:00 Test Item Value Reference Range Interpretation Comments PSA (test code = PSA) 2.26 [facility] [id number] 18:22:00 Test Item Value Reference Range Interpretation Comments T cruzi (Chagas) Ab (test code = NONREACTIVE T cruzi (Chagas) Ab) [facility]2022-02-07 18:22:00 Test Item Value Reference Range Interpretation Comments W Nile Ab IgG (test code = W Nile Ab no gt IgG) [facility]2022-02-07 18:22:00 Test Item Value Reference Range Interpretation Comments W Nile Ab IgM (test code = W Nile Ab no gt IgM) [facility]2022-02-07 18:22:00 Test Item Value Reference Range Interpretation Comments Ferritin Lvl (test code = Ferritin Lvl) 498 22275 [facility]2022-02-07 18:22:00 Test Item Value Reference Range Interpretation Comments Iron (test code = Iron) 84 [facility]2022-02-07 18:22:00 Test Item Value Reference Range Interpretation Comments TIBC (test code = TIBC) 276 [facility]2022-02-07 18:22:00 Test Item Value Reference Range Interpretation Comments % Satur Fe (test code = % Satur Fe) 30 [facility]2022-02-07 18:22:00 Test Item Value Reference Range Interpretation Comments Creatinine Lvl (test code = Creatinine 6.07 0.50-1.40 Lvl) [facility]2022-02-07 18:22:00 Test Item Value Reference Range Interpretation Comments eGFR (test code = eGFR) 9 [facility]2022-02-07 18:22:00 Test Item Value Reference Range Interpretation Comments Glucose Lvl (test code = Glucose Lvl) 75 70-99 [facility]2022-02-07 18:22:00 Test Item Value Reference Range Interpretation Comments BUN (test code = BUN) 39 7-22 [place] [address]-02-07 18:22:00 Test Item Value Reference Range Interpretation Comments Creatinine Lvl (test code = Creatinine 6.00 0.50-1.40 Lvl) [place] [address]-02-07 18:22:00 Test Item Value Reference Range Interpretation Comments Sodium Lvl (test code = Sodium Lvl) 139 135-145 [place] 533062-02-07 18:22:00 Test Item Value Reference Range Interpretation Comments Potassium Lvl (test code = Potassium 3.9 3.5-5.1 Lvl) [place] [address]-02-07 18:22:00 Test Item Value Reference Range Interpretation Comments Chloride Lvl (test code = Chloride Lvl) 104 95-109 [place] [address]-02-07 18:22:00 Test Item Value Reference Range Interpretation Comments CO2 (test code = CO2) 29 24-32 [place] 533062-02-07 18:22:00 Test Item Value Reference Range Interpretation Comments Calcium Lvl (test code = Calcium Lvl) 9.8 8.5-10.5 [place] 533062-02-07 18:22:00 Test Item Value Reference Range Interpretation Comments Total Protein (test code = Total 7.3 6.4-8.4 Protein) [place] [address]-02-07 18:22:00 Test Item Value Reference Range Interpretation Comments Albumin Lvl (test code = Albumin Lvl) 3.5 3.5-5.0 [place] [address]-02-07 18:22:00 Test Item Value Reference Range Interpretation Comments ALT (test code = ALT) 20 See_Comment [Auto mated message] The system which ge nerated this result transmit nicko reference range : <=65. The reference range was not used to interpr et this result as adebayo l/abnormal. [place] 533062-02-07 18:22:00 Test Item Value Reference Range Interpretation Comments AST (test code = AST) 9 See_Comment [Auto mated message] The system which ge nerated this result transmit nicko reference range : <=37. The reference range was not used to interpr et this result as adebayo l/abnormal. [facility] zanda [id number] 18:22:00 Test Item Value Reference Range Interpretation Comments Alk Phos (test code = Alk Phos) 67 39-136 [facility] Worth[facility] [id number] 18:22:00 Test Item Value Reference Range Interpretation Comments Bili Total (test code = Bili Total) 0.4 0.2-1.3 [facility] zanda [id number] 18:22:00 Test Item Value Reference Range Interpretation Comments AGAP (test code = AGAP) 9.9 10.0-20.0 [facility] zanda [id number] 18:22:00 Test Item Value Reference Range Interpretation Comments B/C Ratio (test code = B/C Ratio) 6 1 6-25 [facility] zanda [id number] 18:22:00 Test Item Value Reference Range Interpretation Comments Globulin (test code = Globulin) 3.8 2.7-4.2 [facility] zanda [id number] 18:22:00 Test Item Value Reference Range Interpretation Comments A/G Ratio (test code = A/G Ratio) 0.9 1 0.7-1.6 [facility] zanda [id number] 18:22:00 Test Item Value Reference Range Interpretation Comments eGFR (test code = eGFR) 9 [facility] [id number] 18:22:00 Test Item Value Reference Range Interpretation Comments Magnesium Lvl (test code = Magnesium 1.6 1.8-2.4 Lvl) [facility] zanda [id number] 18:22:00 Test Item Value Reference Range Interpretation Comments Phosphorus (test code = Phosphorus) 4.7 2.5-4.5 [facility] zanda [id number] 18:22:00 Test Item Value Reference Range Interpretation Comments Uric Acid (test code = Uric Acid) 4.9 3.8-8.0 [facility] [employer]2022-02-07 18:22:00 Test Item Value Reference Range Interpretation Comments Vitamin D, 25-OH, Total (test code = 29 Vitamin D, 25-OH, Total) [facility] Worth[facility] [id number] 18:22:00 Test Item Value Reference Range Interpretation Comments Opiate Qnt (test code = Opiate Qnt) Negative [facility] [employer] [id number] 18:22:00 Test Item Value Reference Range Interpretation Comments Kaitlin Scr (test code = Kaitlin Scr) Negative [facility]DR[facility] [id number] 18:22:00 Test Item Value Reference Range Interpretation Comments Cannab Scr (test code = Cannab Scr) Negative [facility] [id number] 18:22:00 Test Item Value Reference Range Interpretation Comments Methadone Scr (test code = Methadone Negative Scr) [facility]DR[facility] [id number] 18:22:00 Test Item Value Reference Range Interpretation Comments Cocaine Scr (test code = Cocaine Negative Scr) [facility] [id number] 18:22:00 Test Item Value Reference Range Interpretation Comments Benzodiaz Scr (test code = Benzodiaz Negative Scr) [facility] [id number] 18:22:00 Test Item Value Reference Range Interpretation Comments Amph Scr (test code = Amph Scr) Negative [facility] [id number] 18:22:00 Test Item Value Reference Range Interpretation Comments Opiate Scr (test code = Opiate Scr) Positive [facility] [id number] 18:22:00 Test Item Value Reference Range Interpretation Comments 6-Acetylmor Scr (test code = Negative 6-Acetylmor Scr) [facility] [place] [place] [id number] 18:22:00 Test Item Value Reference Range Interpretation Comments Cryptococcal Ag (test Negative (04/08/21 code = Cryptococcal Ag) 12:22 PM) [facility] [place] [id number] 18:22:00 Test Item Value Reference Range Interpretation Comments Histo Yeast Ab (test code = Histo Yeast 1:16 Ab) [facility] [place] [place] [id number] 18:22:00 Test Item Value Reference Range Interpretation Comments Histo mycel Ab (test code = Histo mycel 1:8 Ab) [facility] [place] [place] [id number] 18:22:00 Test Item Value Reference Range Interpretation Comments Blastomyces Ab (test code = NEGATIVE Blastomyces Ab) [facility] [place] [place] [id number] 18:22:00 Test Item Value Reference Range Interpretation Comments Coccid Ab IgM (test code = Coccid Ab NEGATIVE IgM) [facility] [place] [place] [id number] 18:22:00 Test Item Value Reference Range Interpretation Comments Coccid Ab IgG (test code = Coccid Ab NEGATIVE IgG) [place] 255662-02-07 18:22:00 Test Item Value Reference Range Interpretation Comments Segs (test code = Segs) 69.3 45.0-75.0 [place] [address]-02-07 18:22:00 Test Item Value Reference Range Interpretation Comments Lymphocytes (test code = Lymphocytes) 22.3 20.0-40.0 [place] [address]-02-07 18:22:00 Test Item Value Reference Range Interpretation Comments Monocytes (test code = Monocytes) 4.8 2.0-12.0 [place] [address]-02-07 18:22:00 Test Item Value Reference Range Interpretation Comments Eosinophils (test code = 3.0 See_Comment [A utomated message] The Eosinophils) system which ge nerated this result tra nsmitted reference range : <=4.0. The reference r carlos was not used to int erpret this result as normal/abnormal . [place] 255662-02-07 18:22:00 Test Item Value Reference Range Interpretation Comments Basophils (test code = 0.6 See_Comment [Aut omated message] The Basophils) system which ge nerated this result tra nsmitted reference range : <=1.0. The reference r carlos was not used to int erpret this result as normal/abnormal . [place] 255662-02-07 18:22:00 Test Item Value Reference Range Interpretation Comments Neutrophils # (test code = Neutrophils 5.6 1.5-8.1 #) [place] 255662-02-07 18:22:00 Test Item Value Reference Range Interpretation Comments Lymphocytes # (test code = Lymphocytes 1.8 1.0-5.5 #) [place] [address]-02-07 18:22:00 Test Item Value Reference Range Interpretation Comments Monocytes # (test code 0.4 See_Comment [Aut omated message] The = Monocytes #) system which generated this result tra nsmitted reference range : <=0.8. The reference r carlos was not used to int erpret this result as normal/abnormal . [place] [address]-02-07 18:22:00 Test Item Value Reference Range Interpretation Comments Eosinophils # (test code 0.2 See_Comment [A utomated message] The = Eosinophils #) system [employer] generated this result tra nsmitted reference range : <=0.5. The reference r carlos was not used to int erpret this result as normal/abnormal . [facility] [id number] 18:22:00 Test Item Value Reference Range Interpretation Comments PT (test code = PT) 12.6 s 12.0-14.7 [place] 255662-02-07 18:22:00 Test Item Value Reference Range Interpretation Comments INR (test code = INR) 0.95 1 0.85-1.17 [place] 255662-02-07 18:22:00 Test Item Value Reference Range Interpretation Comments PTT (test code = PTT) 32.2 s 22.9-35.8 [place] 255662-02-07 18:22:00 Test Item Value Reference Range Interpretation Comments TEG Interp (test Thrombelastograph results code = TEG show increased values of Interp) both Angle Alpha and MA. These findings are suggestive of platelet hypercoagulation. CPT:66114 [facility] SystemUrwwmxkQSFBYXSJHC0796-64-03 18:22:00 Test Item Value Reference Range Interpretation Comments R-time (test code = R-time) 6.0 min 5.0-10.0 [place] [address]-02-07 18:22:00 Test Item Value Reference Range Interpretation Comments K-time (test code = K-time) 1.1 min 1.0-3.0 [place] 255662-02-07 18:22:00 Test Item Value Reference Range Interpretation Comments Angle (test code = Angle) 74.1 degrees 53.0-72.0 [place] 255662-02-07 18:22:00 Test Item Value Reference Range Interpretation Comments Max Amp (test code = Max Amp) 73.3 mm 50.0-70.0 [place] 255662-02-07 18:22:00 Test Item Value Reference Range Interpretation Comments G-value (test code = G-value) 13.7 4.5-11.0 [place] 255662-02-07 18:22:00 Test Item Value Reference Range Interpretation Comments Ly30 (test code = 0.0 See_Comment [Automate d message] The Ly30) system which ge nerated this result transmit nicko reference range : <=7.5. The reference range was not used to interpr et this result as adebayo l/abnormal. [facility] [id number] 18:22:00 Test Item Value Reference Range Interpretation Comments Coag Index (test code 2.5 1 See_Comment [Auto mated message] The = Coag Index) system which g enerated this result transmit nicko reference range : <=3.0. The reference range was not used to interpr et this result as adebayo l/abnormal. [facility] SystemFmvtjtyRDRKVVMLLW6503-26-14 18:22:00 Test Item Value Reference Range Interpretation Comments TEG Data (test code = See Note (04/08/21 12:22 TEG Data) PM) [place] 255662-02-07 18:22:00 Test Item Value Reference Range Interpretation Comments WBC (test code = WBC) 8.0 3.7-10.4 [facility] SystemHqpenzoPUXIUHHIBL2713-92-82 18:22:00 Test Item Value Reference Range Interpretation Comments RBC (test code = RBC) 3.87 4.70-6.10 [facility] SystemHmjqyltACOQNXXVVY0946-93-03 18:22:00 Test Item Value Reference Range Interpretation Comments Hgb (test code = Hgb) 12.0 14.0-18.0 [facility] SystemDtcpvafGDETIOALVS1705-09-51 18:22:00 Test Item Value Reference Range Interpretation Comments Hct (test code = Hct) 37.0 42.0-54.0 [place] 255662-02-07 18:22:00 Test Item Value Reference Range Interpretation Comments MCV (test code = MCV) 95.8 80.0-94.0 [place] 255662-02-07 18:22:00 Test Item Value Reference Range Interpretation Comments MCH (test code = MCH) 31.1 pg 27.0-31.0 [place] [address]-02-07 18:22:00 Test Item Value Reference Range Interpretation Comments MCHC (test code = MCHC) 32.4 32.0-36.0 [place] 255662-02-07 18:22:00 Test Item Value Reference Range Interpretation Comments RDW (test code = RDW) 15.1 11.5-14.5 [place] 255662-02-07 18:22:00 Test Item Value Reference Range Interpretation Comments Platelet (test code = Platelet) 255 133-450 [facility]CbkujqbRUMSTAFQEC5545-05-37 18:22:00 Test Item Value Reference Range Interpretation Comments MPV (test code = MPV) 8.7 7.4-10.4 [facility]YdfbkqdDIBUKSDCTP2103-79-76 18:22:00 Test Item Value Reference Range Interpretation Comments KAREN Ser Pattern A distinct monoclonal (test code = KAREN Ser band is present in the Pattern) IgM izabella with a corresponding distinct band in the kappa light chain izabella. The polyclonal gamma globulin background is preserved in all lanes. [facility] HospitalTkawtltJFKWZOYUBH6722-23-49 18:22:00 Test Item Value Reference Range Interpretation Comments KAREN Ser Interp The immunofixation (test code = KAREN electrophoresis results Ser Interp) (see pattern description) are consistent with monoclonal gammopathy of IgM-kappa isotype. Preservation of diffusely staining immunoreactivity indicates that the production of polyclonal immunoglobulins is not suppressed. Relevant medical information in the EMR was reviewed. I have personally reviewed the test results and concur with the resident's interpretation. CPT 61246-TR [facility] HospitalXodicfwZSTVVCUWRD7234-16-58 18:22:00 Test Item Value Reference Range Interpretation Comments Cystatin C (test code = Cystatin C) 5.38 [place] 971802-02-07 18:22:00 Test Item Value Reference Range Interpretation Comments eGFR Cystatin-based (test code = eGFR 8 Cystatin-based) [place] 971802-02-07 18:22:00 Test Item Value Reference Range Interpretation Comments Albumin % (test code = Albumin %) 54.2 55.8-66.1 [place] 971802-02-07 18:22:00 Test Item Value Reference Range Interpretation Comments Alpha 1 % (test code = Alpha 1 %) 5.8 2.8-4.9 [place] [address]-02-07 18:22:00 Test Item Value Reference Range Interpretation Comments Alpha 2 % (test code = Alpha 2 %) 12.8 7.0-11.9 [place] 971802-02-07 18:22:00 Test Item Value Reference Range Interpretation Comments Beta % (test code = Beta %) 11.7 7.8-13.7 [facility]KhhpvlqBZKXLKRYIS1445-18-20 18:22:00 Test Item Value Reference Range Interpretation Comments Gamma % (test code = Gamma %) 15.5 11.1-18.7 [facility]jzwyyMHDKZPWNDZ4456-94-79 18:22:00 Test Item Value Reference Range Interpretation Comments Albumin (SPE) (test code = Albumin 3.96 3.57-5.55 (SPE)) [facility]manOcrhnvxWSIXXKREIW9709-55-91 18:22:00 Test Item Value Reference Range Interpretation Comments Alpha 1 Glob (test code = Alpha 1 Glob) 0.42 0.18-0.41 [facility]manTzhzzvnHNXVXAGWAI9438-97-95 18:22:00 Test Item Value Reference Range Interpretation Comments Alpha 2 Glob (test code = Alpha 2 Glob) 0.93 0.45-1.00 [facility]manAdciuxwBAFBCCTBYY0350-83-17 18:22:00 Test Item Value Reference Range Interpretation Comments Beta Glob (test code = Beta Glob) 0.85 0.50-1.15 [facility]manSrcbxvgZZIOFZGVKF2769-54-19 18:22:00 Test Item Value Reference Range Interpretation Comments Gamma Glob (test code = Gamma Glob) 1.13 0.71-1.57 [facility]manAgtnuvwILPVFFZLQC6003-25-76 18:22:00 Test Item Value Reference Range Interpretation Comments Tot Prot (SPE) (test code = Tot Prot 7.3 6.4-8.4 (SPE)) [facility]manNwpyztzMEAFNYESZT0758-64-20 18:22:00 Test Item Value Reference Range Interpretation Comments SPE Interp (test Capillary electrophoresis code = SPE Interp) demonstrates a slight distortion, with a possible small peak of the gamma distribution curve. This requires further evaluation by serum and 24 hour urine immunofixation . Total protein level is within the reference range. Serum protein electrophoresis shows mildly increased alpha 1 globulin fraction with normal distribution of the other main protein fractions. The electronic medical record has been reviewed for relevant history. I have personally reviewed the test results and concur with the resident's interpretation. CPT 71775-UV [facility]manUzkmkgqNTLKRPXQJK3589-97-74 18:22:00 Test Item Value Reference Range Interpretation Comments Ronda Free Light Chains (test code = 122.3 Ronda Free Light Chains) [facility]manIzeirfxXNPTQLRGUE1981-07-21 18:22:00 Test Item Value Reference Range Interpretation Comments Lambda Free Light Chains (test code = 74.0 Lambda Free Light Chains) [facility] HospitalHzffpgkAGPBFWZQEM8010-96-96 18:22:00 Test Item Value Reference Range Interpretation Comments Ronda/Lambda Free Light Chains Ratio 1.65 1 (test code = Ronda/Lambda Free Light Chains Ratio) [place] 971802-02-07 18:22:00 Test Item Value Reference Range Interpretation Comments CMV IgG (test code = CMV IgG) no gt [facility] HospitalDbmtbiiDTISHWZPJF6064-19-49 18:22:00 Test Item Value Reference Range Interpretation Comments EBV VCA IgG (test code = EBV VCA IgG) 239.00 [facility] HospitalBvdtqbcFDDTSXCKDH8080-77-92 18:22:00 Test Item Value Reference Range Interpretation Comments HIV Ag/Ab 4th Gen Negative *NA*(04/08/21 (test code = HIV 12:22 PM) Ag/Ab 4th Gen) [place] [address]-02-07 18:22:00 Test Item Value Reference Range Interpretation Comments Hep A Tot (test code = Hep A Tot) REACTIVE [place] 971802-02-07 18:22:00 Test Item Value Reference Range Interpretation Comments Hep Bs Ab (test code = Hep Bs Ab) no gt [facility] HospitalJjyzpjjUFRTFWTTTK2744-06-36 18:22:00 Test Item Value Reference Range Interpretation Comments Hep B Core Ab (test code = Hep B NON-REACTIVE Core Ab) [facility] HospitalSciqpufNWPSZBPAQI4076-54-34 18:22:00 Test Item Value Reference Range Interpretation Comments Hep Bs Ag (test code Negative *NA*(04/08/21 = Hep Bs Ag) 12:22 PM) [place] 971802-02-07 18:22:00 Test Item Value Reference Range Interpretation Comments Hep C Ab (test code = Hep C Ab) NON-REACTIVE [place] 971802-02-07 18:22:00 Test Item Value Reference Range Interpretation Comments Hep Signal to Cut-Off (test code = Hep 0.01 1 Signal to Cut-Off) [place] 971802-02-07 18:22:00 Test Item Value Reference Range Interpretation Comments HSV 1 IgG (test code = HSV 1 IgG) 26.60 [place] 971802-02-07 18:22:00 Test Item Value Reference Range Interpretation Comments HSV 2 IgG (test code = HSV 2 IgG) no gt [facility] HospitalNmfwdysZKPPGMGXRA4397-90-20 18:22:00 Test Item Value Reference Range Interpretation Comments T-Spot.TB (test code = T-Spot.TB) TNP [facility] HospitalMiopwwuHZTGRDWFGS1703-15-10 18:22:00 Test Item Value Reference Range Interpretation Comments T-Spot Pnl A Neg Ctrl Corrected (test TNP code = T-Spot Pnl A Neg Ctrl Corrected) [facility] HospitalWekuxtoLKEWPYSOXG5314-21-25 18:22:00 Test Item Value Reference Range Interpretation Comments T-Spot Pnl B Neg Ctrl Corrected (test TNP code = T-Spot Pnl B Neg Ctrl Corrected) [facility] HospitalEztuqyrEGRMJAFAOX7786-70-62 18:22:00 Test Item Value Reference Range Interpretation Comments T-Spot Neg Ctrl (test code = T-Spot Neg TNP Ctrl) [facility] HospitalIolvbnsVDJFQCGLSB0714-44-63 18:22:00 Test Item Value Reference Range Interpretation Comments T-Spot Pos Ctrl (test code = T-Spot Pos TNP Ctrl) [facility] HospitalMyxoeujPOICCZOWZS9488-97-74 18:22:00 Test Item Value Reference Range Interpretation Comments Toxoplasma IgG (test code = Toxoplasma no gt IgG) [facility] HospitalOjcmhhlOSUGAEOGWU8192-60-17 18:22:00 Test Item Value Reference Range Interpretation Comments Toxoplasma IgM (test code = Toxoplasma no gt IgM) [facility] HospitalAtskkryDOEAIHFJQU9307-03-74 18:22:00 Test Item Value Reference Range Interpretation Comments Treponemal Ab (test code Non-Reactive = Treponemal Ab) 42(04/08/21 12:22 PM) [facility] HospitalNciazhfGVMKZHVSOM7003-28-83 18:22:00 Test Item Value Reference Range Interpretation Comments Varicella IgG (test code = Varicella 2806.00 IgG) [facility] HospitalOjlqlrzHIJJOOGOVA9255-16-84 18:22:00 Test Item Value Reference Range Interpretation Comments Mumps IgG (test code = Mumps IgG) no [facility]2022-02-07 18:22:00 Test Item Value Reference Range Interpretation Comments Rubella IgG (test code = Rubella IgG) no [facility]2022-02-07 18:22:00 Test Item Value Reference Range Interpretation Comments Rubeola IgG (test code = Rubeola IgG) 204.00 [facility]Prq[facility]ssRWFOVA5063-32-12 18:22:00 Test Item Value Reference Range Interpretation Comments Trig (test code = Trig) 209 [facility] WorthEerrkotJONRXX1021-76-43 18:22:00 Test Item Value Reference Range Interpretation Comments Chol (test code = Chol) 209 [facility] WorthIwwwqeiOEWTNQ4467-40-85 18:22:00 Test Item Value Reference Range Interpretation Comments HDL (test code = HDL) 33 [facility] WorthJlestwyIPYATV2922-83-02 18:22:00 Test Item Value Reference Range Interpretation Comments CHD Risk (test code = CHD Risk) 6.33 1 4.00-7.30 [facility]bnsUPTHHO7806-62-08 18:22:00 Test Item Value Reference Range Interpretation Comments LDL (Calculated) (test code = LDL 134 (Calculated)) [facility] WorthRxegfyeBDEMFS7634-59-55 18:22:00 Test Item Value Reference Range Interpretation Comments VLDL (test code = VLDL) 42 1 [facility] WorthannPARASITOLOGY - KFAJEMCE0553-64-66 18:22:00 Test Item Value Reference Range Interpretation Comments Strongyloides Antibodies (test code NEGATIVE = Strongyloides Antibodies) [facility] WorthannPARATHYROID RRWTVYW7875-86-55 18:22:00 Test Item Value Reference Range Interpretation Comments PTH Intact (test code = PTH Intact) 511.0 18.4-80.1 [facility] WorthannREFERENCE LAB BJFSEZV4641-20-40 18:22:00 Test Item Value Reference Range Interpretation Comments Misc Quest (test code = Misc Quest) REPORT [facility] WorthannSPECIAL AIJIOUGPV6358-20-10 18:22:00 Test Item Value Reference Range Interpretation Comments Nicotine Lvl (test code = Nicotine Lvl) no gt [facility] WorthannSPECIAL PICXABJGW5513-73-24 18:22:00 Test Item Value Reference Range Interpretation Comments Cotinine Lvl (test code = Cotinine Lvl) no gt [facility] WorthannSPECIAL FGVAHMUBA9641-88-26 18:22:00 Test Item Value Reference Range Interpretation Comments Hgb A1C (test code = Hgb A1C) 5.7 [facility] WorthannSPECIAL IFUIENVLQ2742-76-54 18:22:00 Test Item Value Reference Range Interpretation Comments PSA (test code = PSA) 2.26 [facility] WorthannVIRAL - EUHVAQTW7081-13-07 18:22:00 Test Item Value Reference Range Interpretation Comments T cruzi (Chagas) Ab (test code = NONREACTIVE T cruzi (Chagas) Ab) [facility] FTMIMQIO4763-12-01 18:22:00 Test Item Value Reference Range Interpretation Comments W Nile Ab IgG (test code = W Nile Ab no gt IgG) [facility] [id number] 18:22:00 Test Item Value Reference Range Interpretation Comments W Nile Ab IgM (test code = W Nile Ab no gt IgM) [facility]2022-02-07 18:22:00 Test Item Value Reference Range Interpretation Comments Ferritin Lvl (test code = Ferritin Lvl) 498 22-275 [facility]2022-02-07 18:22:00 Test Item Value Reference Range Interpretation Comments Iron (test code = Iron) 84 [facility]2022-02-07 18:22:00 Test Item Value Reference Range Interpretation Comments TIBC (test code = TIBC) 276 [facility]2022-02-07 18:22:00 Test Item Value Reference Range Interpretation Comments % Satur Fe (test code = % Satur Fe) 30 [facility]2022-02-07 18:22:00 Test Item Value Reference Range Interpretation Comments Creatinine Lvl (test code = Creatinine 6.07 0.50-1.40 Lvl) [facility]2022-02-07 18:22:00 Test Item Value Reference Range Interpretation Comments eGFR (test code = eGFR) 9 [facility]2022-02-07 18:22:00 Test Item Value Reference Range Interpretation Comments Glucose Lvl (test code = Glucose Lvl) 75 70-99 [facility]2022-02-07 18:22:00 Test Item Value Reference Range Interpretation Comments BUN (test code = BUN) 39 7-22 [place] 533062-02-07 18:22:00 Test Item Value Reference Range Interpretation Comments Creatinine Lvl (test code = Creatinine 6.00 0.50-1.40 Lvl) [place] 533062-02-07 18:22:00 Test Item Value Reference Range Interpretation Comments Sodium Lvl (test code = Sodium Lvl) 139 135-145 [facility]2022-02-07 18:22:00 Test Item Value Reference Range Interpretation Comments Potassium Lvl (test code = Potassium 3.9 3.5-5.1 Lvl) [facility]2022-02-07 18:22:00 Test Item Value Reference Range Interpretation Comments Chloride Lvl (test code = Chloride Lvl) 104 95-109 [place] 533062-02-07 18:22:00 Test Item Value Reference Range Interpretation Comments CO2 (test code = CO2) 29 24-32 [place] 533062-02-07 18:22:00 Test Item Value Reference Range Interpretation Comments Calcium Lvl (test code = Calcium Lvl) 9.8 8.5-10.5 [facility] WorthMerfac [id number] 18:22:00 Test Item Value Reference Range Interpretation Comments Total Protein (test code = Total 7.3 6.4-8.4 Protein) [place] 533062-02-07 18:22:00 Test Item Value Reference Range Interpretation Comments Albumin Lvl (test code = Albumin Lvl) 3.5 3.5-5.0 [facility] Worth[facility] [id number] 18:22:00 Test Item Value Reference Range Interpretation Comments ALT (test code = ALT) 20 See_Comment [Auto mated message] The system which ge nerated this result transmit nicko reference range : <=65. The reference range was not used to interpr et this result as adebayo l/abnormal. [facility] Worth[facility] [id number] 18:22:00 Test Item Value Reference Range Interpretation Comments AST (test code = AST) 9 See_Comment [Auto mated message] The system which ge nerated this result transmit nicko reference range : <=37. The reference range was not used to interpr et this result as adebayo l/abnormal. [facility] Worth[facility] [id number] 18:22:00 Test Item Value Reference Range Interpretation Comments Alk Phos (test code = Alk Phos) 67 39-136 [facility] [id number] 18:22:00 Test Item Value Reference Range Interpretation Comments Bili Total (test code = Bili Total) 0.4 0.2-1.3 [facility] [id number] 18:22:00 Test Item Value Reference Range Interpretation Comments AGAP (test code = AGAP) 9.9 10.0-20.0 [facility] [id number] 18:22:00 Test Item Value Reference Range Interpretation Comments B/C Ratio (test code = B/C Ratio) 6 1 6-25 [facility] [id number] 18:22:00 Test Item Value Reference Range Interpretation Comments Globulin (test code = Globulin) 3.8 2.7-4.2 [facility] [id number] 18:22:00 Test Item Value Reference Range Interpretation Comments A/G Ratio (test code = A/G Ratio) 0.9 1 0.7-1.6 [facility] [id number] 18:22:00 Test Item Value Reference Range Interpretation Comments eGFR (test code = eGFR) 9 [facility] [id number] 18:22:00 Test Item Value Reference Range Interpretation Comments Magnesium Lvl (test code = Magnesium 1.6 1.8-2.4 Lvl) [facility] [id number] 18:22:00 Test Item Value Reference Range Interpretation Comments Phosphorus (test code = Phosphorus) 4.7 2.5-4.5 [facility] [id number] 18:22:00 Test Item Value Reference Range Interpretation Comments Uric Acid (test code = Uric Acid) 4.9 3.8-8.0 [facility] [id number] 18:22:00 Test Item Value Reference Range Interpretation Comments Vitamin D, 25-OH, Total (test code = 29 Vitamin D, 25-OH, Total) [facility] [id number] 18:22:00 Test Item Value Reference Range Interpretation Comments Opiate Qnt (test code = Opiate Qnt) Negative [facility] [id number] 18:22:00 Test Item Value Reference Range Interpretation Comments Kaitlin Scr (test code = Kaitlin Scr) Negative [facility] [id number] 18:22:00 Test Item Value Reference Range Interpretation Comments Cannab Scr (test code = Cannab Scr) Negative [facility] [id number] 18:22:00 Test Item Value Reference Range Interpretation Comments Methadone Scr (test code = Methadone Negative Scr) [facility] [id number] 18:22:00 Test Item Value Reference Range Interpretation Comments Cocaine Scr (test code = Cocaine Negative Scr) [facility] [id number] 18:22:00 Test Item Value Reference Range Interpretation Comments Benzodiaz Scr (test code = Benzodiaz Negative Scr) [facility] [id number] 18:22:00 Test Item Value Reference Range Interpretation Comments Amph Scr (test code = Amph Scr) Negative [facility] [id number] 18:22:00 Test Item Value Reference Range Interpretation Comments Opiate Scr (test code = Opiate Scr) Positive [facility] [id number] 18:22:00 Test Item Value Reference Range Interpretation Comments 6-Acetylmor Scr (test code = Negative 6-Acetylmor Scr) [facility]2022-02-07 18:22:00 Test Item Value Reference Range Interpretation Comments Cryptococcal Ag (test Negative (04/08/21 code = Cryptococcal Ag) 12:22 PM) [facility]2022-02-07 18:22:00 Test Item Value Reference Range Interpretation Comments Histo Yeast Ab (test code = Histo Yeast 1:16 Ab) [facility]2022-02-07 18:22:00 Test Item Value Reference Range Interpretation Comments Histo mycel Ab (test code = Histo mycel 1:8 Ab) [facility]2022-02-07 18:22:00 Test Item Value Reference Range Interpretation Comments Blastomyces Ab (test code = NEGATIVE Blastomyces Ab) [facility]2022-02-07 18:22:00 Test Item Value Reference Range Interpretation Comments Coccid Ab IgM (test code = Coccid Ab NEGATIVE IgM) [facility]2022-02-07 18:22:00 Test Item Value Reference Range Interpretation Comments Coccid Ab IgG (test code = Coccid Ab NEGATIVE IgG) [facility]ZqzsbfoDBUVEJPHIB6305-24-03 18:22:00 Test Item Value Reference Range Interpretation Comments Segs (test code = Segs) 69.3 45.0-75.0 [facility] SystemLnvbdpzNZPYADSNZC1105-65-29 18:22:00 Test Item Value Reference Range Interpretation Comments Lymphocytes (test code = Lymphocytes) 22.3 20.0-40.0 [facility] SystemIoyrluxZWTXFUURVW1799-12-10 18:22:00 Test Item Value Reference Range Interpretation Comments Monocytes (test code = Monocytes) 4.8 2.0-12.0 [facility] SystemBtixlugUWUAKJZAGX2937-89-23 18:22:00 Test Item Value Reference Range Interpretation Comments Eosinophils (test code = 3.0 See_Comment [A utomated message] The Eosinophils) system which ge nerated this result tra nsmitted reference range : <=4.0. The reference r carlos was not used to int erpret this result as normal/abnormal . [facility] SystemCyrpajvWHDFPZGCVX3206-37-92 18:22:00 Test Item Value Reference Range Interpretation Comments Basophils (test code = 0.6 See_Comment [Aut omated message] The Basophils) system which ge nerated this result tra nsmitted reference range : <=1.0. The reference r carlos was not used to int erpret this result as normal/abnormal . [place] 255662-02-07 18:22:00 Test Item Value Reference Range Interpretation Comments Neutrophils # (test code = Neutrophils 5.6 1.5-8.1 #) [facility] SystemQghqgdvRQECWICMAY0874-99-20 18:22:00 Test Item Value Reference Range Interpretation Comments Lymphocytes # (test code = Lymphocytes 1.8 1.0-5.5 #) [place] 255662-02-07 18:22:00 Test Item Value Reference Range Interpretation Comments Monocytes # (test code 0.4 See_Comment [Aut omated message] The = Monocytes #) system which generated this result tra nsmitted reference range : <=0.8. The reference r carlos was not used to int erpret this result as normal/abnormal . [facility] SystemMwkncjaTRBNVHORIN3202-51-83 18:22:00 Test Item Value Reference Range Interpretation Comments Eosinophils # (test code 0.2 See_Comment [A utomated message] The = Eosinophils #) system whic h generated this result tra nsmitted reference range : <=0.5. The reference r carlos was not used to int erpret this result as normal/abnormal . [place] 255662-02-07 18:22:00 Test Item Value Reference Range Interpretation Comments PT (test code = PT) 12.6 s 12.0-14.7 [place] 255662-02-07 18:22:00 Test Item Value Reference Range Interpretation Comments INR (test code = INR) 0.95 1 0.85-1.17 [place] 255662-02-07 18:22:00 Test Item Value Reference Range Interpretation Comments PTT (test code = PTT) 32.2 s 22.9-35.8 [place] 255662-02-07 18:22:00 Test Item Value Reference Range Interpretation Comments TEG Interp (test Thrombelastograph results code = TEG show increased values of Interp) both Angle Alpha and MA. These findings are suggestive of platelet hypercoagulation. CPT:48286 [facility] SystemXknztumYLLERQAUPN3049-48-92 18:22:00 Test Item Value Reference Range Interpretation Comments R-time (test code = R-time) 6.0 min 5.0-10.0 [place] 255662-02-07 18:22:00 Test Item Value Reference Range Interpretation Comments K-time (test code = K-time) 1.1 min 1.0-3.0 [place] 255662-02-07 18:22:00 Test Item Value Reference Range Interpretation Comments Angle (test code = Angle) 74.1 degrees 53.0-72.0 [place] 255662-02-07 18:22:00 Test Item Value Reference Range Interpretation Comments Max Amp (test code = Max Amp) 73.3 mm 50.0-70.0 [place] 255662-02-07 18:22:00 Test Item Value Reference Range Interpretation Comments G-value (test code = G-value) 13.7 4.5-11.0 [place] 255662-02-07 18:22:00 Test Item Value Reference Range Interpretation Comments Ly30 (test code = 0.0 See_Comment [Automate d message] The Ly30) system which ge nerated this result transmit nicko reference range : <=7.5. The reference range was not used to interpr et this result as adebayo l/abnormal. [place] 255662-02-07 18:22:00 Test Item Value Reference Range Interpretation Comments Coag Index (test code 2.5 1 See_Comment [Auto mated message] The = Coag Index) system which g enerated this result transmit nicko reference range : <=3.0. The reference range was not used to interpr et this result as adebayo l/abnormal. [place] 255662-02-07 18:22:00 Test Item Value Reference Range Interpretation Comments TEG Data (test code = See Note (04/08/21 12:22 TEG Data) PM) [place] 255662-02-07 18:22:00 Test Item Value Reference Range Interpretation Comments WBC (test code = WBC) 8.0 3.7-10.4 [place] 255662-02-07 18:22:00 Test Item Value Reference Range Interpretation Comments RBC (test code = RBC) 3.87 4.70-6.10 [place] 255662-02-07 18:22:00 Test Item Value Reference Range Interpretation Comments Hgb (test code = Hgb) 12.0 14.0-18.0 [place] 255662-02-07 18:22:00 Test Item Value Reference Range Interpretation Comments Hct (test code = Hct) 37.0 42.0-54.0 [place] 255662-02-07 18:22:00 Test Item Value Reference Range Interpretation Comments MCV (test code = MCV) 95.8 80.0-94.0 [place] 255662-02-07 18:22:00 Test Item Value Reference Range Interpretation Comments MCH (test code = MCH) 31.1 pg 27.0-31.0 [place] 255662-02-07 18:22:00 Test Item Value Reference Range Interpretation Comments MCHC (test code = MCHC) 32.4 32.0-36.0 [facility]usqsEISSVEQEHJ4534-42-33 18:22:00 Test Item Value Reference Range Interpretation Comments RDW (test code = RDW) 15.1 11.5-14.5 [place] 255662-02-07 18:22:00 Test Item Value Reference Range Interpretation Comments Platelet (test code = Platelet) 255 133-450 [place] 255662-02-07 18:22:00 Test Item Value Reference Range Interpretation Comments MPV (test code = MPV) 8.7 7.4-10.4 [place] 971802-02-07 18:22:00 Test Item Value Reference Range Interpretation Comments KAREN Ser Pattern A distinct monoclonal (test code = KAREN Ser band is present in the Pattern) IgM izabella with a corresponding distinct band in the kappa light chain izabella. The polyclonal gamma globulin background is preserved in all lanes. [place] 971802-02-07 18:22:00 Test Item Value Reference Range Interpretation Comments KAREN Ser Interp The immunofixation (test code = KAREN electrophoresis results Ser Interp) (see pattern description) are consistent with monoclonal gammopathy of IgM-kappa isotype. Preservation of diffusely staining immunoreactivity indicates that the production of polyclonal immunoglobulins is not suppressed. Relevant medical information in the EMR was reviewed. I have personally reviewed the test results and concur with the resident's interpretation. CPT 02715-LR [place] 971802-02-07 18:22:00 Test Item Value Reference Range Interpretation Comments Cystatin C (test code = Cystatin C) 5.38 [place] 971802-02-07 18:22:00 Test Item Value Reference Range Interpretation Comments eGFR Cystatin-based (test code = eGFR 8 Cystatin-based) [place] 971802-02-07 18:22:00 Test Item Value Reference Range Interpretation Comments Albumin % (test code = Albumin %) 54.2 55.8-66.1 [place] 971802-02-07 18:22:00 Test Item Value Reference Range Interpretation Comments Alpha 1 % (test code = Alpha 1 %) 5.8 2.8-4.9 [place] [address]-02-07 18:22:00 Test Item Value Reference Range Interpretation Comments Alpha 2 % (test code = Alpha 2 %) 12.8 7.0-11.9 [place] [address]-02-07 18:22:00 Test Item Value Reference Range Interpretation Comments Beta % (test code = Beta %) 11.7 7.8-13.7 [place] 971802-02-07 18:22:00 Test Item Value Reference Range Interpretation Comments Gamma % (test code = Gamma %) 15.5 11.1-18.7 [place] [address]-02-07 18:22:00 Test Item Value Reference Range Interpretation Comments Albumin (SPE) (test code = Albumin 3.96 3.57-5.55 (SPE)) [place] 971802-02-07 18:22:00 Test Item Value Reference Range Interpretation Comments Alpha 1 Glob (test code = Alpha 1 Glob) 0.42 0.18-0.41 [place] [address]-02-07 18:22:00 Test Item Value Reference Range Interpretation Comments Alpha 2 Glob (test code = Alpha 2 Glob) 0.93 0.45-1.00 [facility]176[facility] 18:22:00 Test Item Value Reference Range Interpretation Comments Beta Glob (test code = Beta Glob) 0.85 0.50-1.15 [facility]BpmpsqdASKCSSJANT9120-78-50 18:22:00 Test Item Value Reference Range Interpretation Comments Gamma Glob (test code = Gamma Glob) 1.13 0.71-1.57 [facility]GptsgxbZYKEZGCWRS1599-50-04 18:22:00 Test Item Value Reference Range Interpretation Comments Tot Prot (SPE) (test code = Tot Prot 7.3 6.4-8.4 (SPE)) [place] 971802-02-07 18:22:00 Test Item Value Reference Range Interpretation Comments SPE Interp (test Capillary electrophoresis code = SPE Interp) demonstrates a slight distortion, with a possible small peak of the gamma distribution curve. This requires further evaluation by serum and 24 hour urine immunofixation . Total protein level is within the reference range. Serum protein electrophoresis shows mildly increased alpha 1 globulin fraction with normal distribution of the other main protein fractions. The electronic medical record has been reviewed for relevant history. I have personally reviewed the test results and concur with the resident's interpretation. CPT 30473-QL [facility]PoplrxhXJIPDHFWGU5295-11-96 18:22:00 Test Item Value Reference Range Interpretation Comments Ronda Free Light Chains (test code = 122.3 Ronda Free Light Chains) [facility]2021-12-08 15:25:00 Test Item Value Reference Range Interpretation Comments Glucose Lvl (test code = Glucose Lvl) 126 70-99 [facility]2021-12-08 15:25:00 Test Item Value Reference Range Interpretation Comments BUN (test code = BUN) 35 7-22 [facility]2021-12-08 15:25:00 Test Item Value Reference Range Interpretation Comments Creatinine Lvl (test code = Creatinine 5.57 0.50-1.40 Lvl) [facility]2021-12-08 15:25:00 Test Item Value Reference Range Interpretation Comments Sodium Lvl (test code = Sodium Lvl) 141 135-145 [facility]2021-12-08 15:25:00 Test Item Value Reference Range Interpretation Comments Potassium Lvl (test code = Potassium 3.3 3.5-5.1 Lvl) [facility] [id number] 15:25:00 Test Item Value Reference Range Interpretation Comments Chloride Lvl (test code = Chloride Lvl) 105 95-109 [facility] [id number] 15:25:00 Test Item Value Reference Range Interpretation Comments CO2 (test code = CO2) 28 24-32 [facility] [id number] 15:25:00 Test Item Value Reference Range Interpretation Comments Calcium Lvl (test code = Calcium Lvl) 9.1 8.5-10.5 [facility] [id number] 15:25:00 Test Item Value Reference Range Interpretation Comments Total Protein (test code = Total 7.2 6.4-8.4 Protein) [facility] [id number] 15:25:00 Test Item Value Reference Range Interpretation Comments Albumin Lvl (test code = Albumin Lvl) 3.1 3.5-5.0 [facility] [id number] 15:25:00 Test Item Value Reference Range Interpretation Comments ALT (test code = ALT) 15 See_Comment [Auto mated message] The system which ge nerated this result transmit nicko reference range : <=65. The reference range was not used to interpr et this result as adebayo l/abnormal. [facility] [id number] 15:25:00 Test Item Value Reference Range Interpretation Comments AST (test code = AST) 10 See_Comment [Auto mated message] The system which ge nerated this result transmit nicko reference range : <=37. The reference range was not used to interpr et this result as adebayo l/abnormal. [facility] [id number] 15:25:00 Test Item Value Reference Range Interpretation Comments Alk Phos (test code = Alk Phos) 55 39-136 [facility] [id number] 15:25:00 Test Item Value Reference Range Interpretation Comments Bili Total (test code = Bili Total) 0.3 0.2-1.3 [facility] [id number] 15:25:00 Test Item Value Reference Range Interpretation Comments AGAP (test code = AGAP) 11.3 10.0-20.0 [place] 533061-12-08 15:25:00 Test Item Value Reference Range Interpretation Comments B/C Ratio (test code = B/C Ratio) 6 1 6-25 [place] 533061-12-08 15:25:00 Test Item Value Reference Range Interpretation Comments Globulin (test code = Globulin) 4.1 2.7-4.2 [place] [address]36-12-08 15:25:00 Test Item Value Reference Range Interpretation Comments A/G Ratio (test code = A/G Ratio) 0.8 1 0.7-1.6 [place] [address]-12-08 15:25:00 Test Item Value Reference Range Interpretation Comments eGFR (test code = eGFR) 10 [place] 255661-12-08 15:25:00 Test Item Value Reference Range Interpretation Comments WBC (test code = WBC) 8.7 3.7-10.4 [place] 255661-12-08 15:25:00 Test Item Value Reference Range Interpretation Comments RBC (test code = RBC) 3.91 4.70-6.10 [place] 255661-12-08 15:25:00 Test Item Value Reference Range Interpretation Comments Hgb (test code = Hgb) 12.2 14.0-18.0 [place] [address]-12-08 15:25:00 Test Item Value Reference Range Interpretation Comments Hct (test code = Hct) 37.4 42.0-54.0 [place] [address]-12-08 15:25:00 Test Item Value Reference Range Interpretation Comments MCV (test code = MCV) 95.5 80.0-94.0 [place] [address]-12-08 15:25:00 Test Item Value Reference Range Interpretation Comments MCH (test code = MCH) 31.1 pg 27.0-31.0 [place] [address]-12-08 15:25:00 Test Item Value Reference Range Interpretation Comments MCHC (test code = MCHC) 32.6 32.0-36.0 [place] [address]-12-08 15:25:00 Test Item Value Reference Range Interpretation Comments RDW (test code = RDW) 14.9 11.5-14.5 [place] 255661-12-08 15:25:00 Test Item Value Reference Range Interpretation Comments Platelet (test code = Platelet) 229 133-450 [facility] SystemIrorlndFJGGEVBZRT7540-01-34 15:25:00 Test Item Value Reference Range Interpretation Comments MPV (test code = MPV) 8.0 7.4-10.4 [place] 255661-12-08 15:25:00 Test Item Value Reference Range Interpretation Comments Segs (test code = Segs) 69.4 45.0-75.0 [place] 255661-12-08 15:25:00 Test Item Value Reference Range Interpretation Comments Lymphocytes (test code = Lymphocytes) 20.9 20.0-40.0 [place] 255661-12-08 15:25:00 Test Item Value Reference Range Interpretation Comments Monocytes (test code = Monocytes) 5.3 2.0-12.0 [place] 255661-12-08 15:25:00 Test Item Value Reference Range Interpretation Comments Eosinophils (test code = 3.6 See_Comment [A utomated message] The Eosinophils) system which ge nerated this result tra nsmitted reference range : <=4.0. The reference r carlos was not used to int erpret this result as normal/abnormal . [facility] SystemCzrbjytLRHXQWSTPR5902-84-67 15:25:00 Test Item Value Reference Range Interpretation Comments Basophils (test code = 0.8 See_Comment [Aut omated message] The Basophils) system which ge nerated this result tra nsmitted reference range : <=1.0. The reference r carlos was not used to int erpret this result as normal/abnormal . [facility] SystemOacpyyhJSMLVIXKYU1619-01-14 15:25:00 Test Item Value Reference Range Interpretation Comments Neutrophils # (test code = Neutrophils 6.0 1.5-8.1 #) [facility] SystemTiztctvOQVFOSNLXU4180-79-67 15:25:00 Test Item Value Reference Range Interpretation Comments Lymphocytes # (test code = Lymphocytes 1.8 1.0-5.5 #) [facility] SystemOsvfrinWXOBIVEBGV1696-15-52 15:25:00 Test Item Value Reference Range Interpretation Comments Monocytes # (test code 0.5 See_Comment [Aut omated message] The = Monocytes #) system which generated this result tra nsmitted reference range : <=0.8. The reference r carlos was not used to int erpret this result as normal/abnormal . [facility] SystemDjlpkccZDNLHEGYAV0831-40-42 15:25:00 Test Item Value Reference Range Interpretation Comments Eosinophils # (test code 0.3 See_Comment [A utomated message] The = Eosinophils #) system whic h generated this result tra nsmitted reference range : <=0.5. The reference r carlos was not used to int erpret this result as normal/abnormal . [facility] SystemNwwkdplFPFUQZXXKC2410-32-10 15:25:00 Test Item Value Reference Range Interpretation Comments Basophils # (test code 0.1 See_Comment [Aut omated message] The = Basophils #) system which generated this result tra nsmitted reference range : <=0.2. The reference r carlos was not used to int erpret this result as normal/abnormal . [facility]BbepryvJYMGASPZQF2537-87-85 15:25:00 Test Item Value Reference Range Interpretation Comments Albumin % (test code = Albumin %) 54.0 55.8-66.1 [place] 971801-12-08 15:25:00 Test Item Value Reference Range Interpretation Comments Alpha 1 % (test code = Alpha 1 %) 6.4 2.8-4.9 [place] 971801-12-08 15:25:00 Test Item Value Reference Range Interpretation Comments Alpha 2 % (test code = Alpha 2 %) 13.4 7.0-11.9 [place] 971801-12-08 15:25:00 Test Item Value Reference Range Interpretation Comments Beta % (test code = Beta %) 11.5 7.8-13.7 [place] 971801-12-08 15:25:00 Test Item Value Reference Range Interpretation Comments Gamma % (test code = Gamma %) 14.7 11.1-18.7 [place] [address]-12-08 15:25:00 Test Item Value Reference Range Interpretation Comments Albumin (SPE) (test code = Albumin 3.89 3.57-5.55 (SPE)) [place] 971801-12-08 15:25:00 Test Item Value Reference Range Interpretation Comments Alpha 1 Glob (test code = Alpha 1 Glob) 0.46 0.18-0.41 [place] 971801-12-08 15:25:00 Test Item Value Reference Range Interpretation Comments Alpha 2 Glob (test code = Alpha 2 Glob) 0.96 0.45-1.00 [facility]weicmeXTYIZXFIPA0288-03-02 15:25:00 Test Item Value Reference Range Interpretation Comments Beta Glob (test code = Beta Glob) 0.83 0.50-1.15 [facility]AolsthtLJJZMQHUJP9851-81-63 15:25:00 Test Item Value Reference Range Interpretation Comments Gamma Glob (test code = Gamma Glob) 1.06 0.71-1.57 [facility]WqpowljCJCXBFYABN3744-27-49 15:25:00 Test Item Value Reference Range Interpretation Comments Tot Prot (SPE) (test code = Tot Prot 7.2 6.4-8.4 (SPE)) [facility]MqstxfjOKZRZZPGWU4626-69-77 15:25:00 Test Item Value Reference Range Interpretation Comments SPE Interp (test Capillary electrophoresis code = SPE Interp) demonstrates a mild distortion of the gamma zone. This requires further evaluation by serum and 24 hr urine immunofixation. 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 Total protein is normal. Serum protein electrophoresis shows a mildly decreased alpha 1 globulin fraction and mild gamma distortion. Recommend urine immunofixation electrophoresis for further evaluation. Please submit a 24-hour urine specimen. I have personally reviewed the test results and concur with the resident's interpretation. [facility] 15:25:00 Test Item Value Reference Range Interpretation Comments KAREN Ser Pattern A distinct monoclonal (test code = KAREN Ser band is present in the Pattern) IgM izabella with a corresponding distinct band in the kappa light chain izabella. The polyclonal gamma globulin background is preserved in all lanes. [facility] HospitalBrjresbWHILUZDXWY4223-87-79 15:25:00 Test Item Value Reference Range Interpretation Comments KAREN Ser Interp The immunofixation (test code = KAREN electrophoresis results Ser Interp) (see pattern description) are consistent with monoclonal gammopathy of IgM-kappa isotype. Preservation of diffusely staining immunoreactivity indicates that the production of polyclonal immunoglobulins is not suppressed. Relevant medical information in the EMR was reviewed. I have personally reviewed the test results and concur with the resident's interpretation. CPT 11157-IP [facility] HospitalAimiattCSCZMQYVPC2523-34-45 15:25:00 Test Item Value Reference Range Interpretation Comments Ronda Free Light Chains (test code = 107.5 Ronda Free Light Chains) [place] [address]-12-08 15:25:00 Test Item Value Reference Range Interpretation Comments Lambda Free Light Chains (test code = 68.4 Lambda Free Light Chains) [place] [address]-12-08 15:25:00 Test Item Value Reference Range Interpretation Comments Ronda/Lambda Free Light Chains Ratio 1.57 1 (test code = Ronda/Lambda Free Light Chains Ratio) [place] 533061-12-08 15:25:00 Test Item Value Reference Range Interpretation Comments Glucose Lvl (test code = Glucose Lvl) 126 70-99 [place] 533061-12-08 15:25:00 Test Item Value Reference Range Interpretation Comments BUN (test code = BUN) 35 7-22 [place] 533061-12-08 15:25:00 Test Item Value Reference Range Interpretation Comments Creatinine Lvl (test code = Creatinine 5.57 0.50-1.40 Lvl) [place] 533061-12-08 15:25:00 Test Item Value Reference Range Interpretation Comments Sodium Lvl (test code = Sodium Lvl) 141 135-145 [place] 533061-12-08 15:25:00 Test Item Value Reference Range Interpretation Comments Potassium Lvl (test code = Potassium 3.3 3.5-5.1 Lvl) [place] 533061-12-08 15:25:00 Test Item Value Reference Range Interpretation Comments Chloride Lvl (test code = Chloride Lvl) 105 95-109 [place] 533061-12-08 15:25:00 Test Item Value Reference Range Interpretation Comments CO2 (test code = CO2) 28 24-32 [place] 533061-12-08 15:25:00 Test Item Value Reference Range Interpretation Comments Calcium Lvl (test code = Calcium Lvl) 9.1 8.5-10.5 [place] 533061-12-08 15:25:00 Test Item Value Reference Range Interpretation Comments Total Protein (test code = Total 7.2 6.4-8.4 Protein) [place] 533061-12-08 15:25:00 Test Item Value Reference Range Interpretation Comments Albumin Lvl (test code = Albumin Lvl) 3.1 3.5-5.0 [facility] zanda [id number] 15:25:00 Test Item Value Reference Range Interpretation Comments ALT (test code = ALT) 15 See_Comment [Auto mated message] The system which ge nerated this result transmit nicko reference range : <=65. The reference range was not used to interpr et this result as adebayo l/abnormal. [facility] zanda [id number] 15:25:00 Test Item Value Reference Range Interpretation Comments AST (test code = AST) 10 See_Comment [Auto mated message] The system which ge nerated this result transmit nicko reference range : <=37. The reference range was not used to interpr et this result as adebayo l/abnormal. [employer] [id number] 15:25:00 Test Item Value Reference Range Interpretation Comments Alk Phos (test code = Alk Phos) 55 39-136 [facility] zanda [id number] 15:25:00 Test Item Value Reference Range Interpretation Comments Bili Total (test code = Bili Total) 0.3 0.2-1.3 [facility] zanda [id number] 15:25:00 Test Item Value Reference Range Interpretation Comments AGAP (test code = AGAP) 11.3 10.0-20.0 [facility]2021-12-08 15:25:00 Test Item Value Reference Range Interpretation Comments B/C Ratio (test code = B/C Ratio) 6 1 6-25 [facility] zanda [id number] 15:25:00 Test Item Value Reference Range Interpretation Comments Globulin (test code = Globulin) 4.1 2.7-4.2 [facility] [employer]2021-12-08 15:25:00 Test Item Value Reference Range Interpretation Comments A/G Ratio (test code = A/G Ratio) 0.8 1 0.7-1.6 [facility]2021-12-08 15:25:00 Test Item Value Reference Range Interpretation Comments eGFR (test code = eGFR) 10 GemaMqgcyqjUBHMBCWWRI2464-37-52 15:25:00 Test Item Value Reference Range Interpretation Comments WBC (test code = WBC) 8.7 3.7-10.4 [facility] RjvwmpuAKBGJTFJNW9721-28-54 15:25:00 Test Item Value Reference Range Interpretation Comments RBC (test code = RBC) 3.91 4.70-6.10 [facility] SystemMwvcdkqJXIGZAWLPU0757-55-45 15:25:00 Test Item Value Reference Range Interpretation Comments Hgb (test code = Hgb) 12.2 14.0-18.0 [place] 255661-12-08 15:25:00 Test Item Value Reference Range Interpretation Comments Hct (test code = Hct) 37.4 42.0-54.0 [place] 255661-12-08 15:25:00 Test Item Value Reference Range Interpretation Comments MCV (test code = MCV) 95.5 80.0-94.0 [place] 255661-12-08 15:25:00 Test Item Value Reference Range Interpretation Comments MCH (test code = MCH) 31.1 pg 27.0-31.0 [place] 255661-12-08 15:25:00 Test Item Value Reference Range Interpretation Comments MCHC (test code = MCHC) 32.6 32.0-36.0 [place] 255661-12-08 15:25:00 Test Item Value Reference Range Interpretation Comments RDW (test code = RDW) 14.9 11.5-14.5 [place] 255661-12-08 15:25:00 Test Item Value Reference Range Interpretation Comments Platelet (test code = Platelet) 229 133-450 [facility] SystemFpbrvsiODPMNYQPEY6365-87-26 15:25:00 Test Item Value Reference Range Interpretation Comments MPV (test code = MPV) 8.0 7.4-10.4 [place] 255661-12-08 15:25:00 Test Item Value Reference Range Interpretation Comments Segs (test code = Segs) 69.4 45.0-75.0 [place] 255661-12-08 15:25:00 Test Item Value Reference Range Interpretation Comments Lymphocytes (test code = Lymphocytes) 20.9 20.0-40.0 [place] [address]-12-08 15:25:00 Test Item Value Reference Range Interpretation Comments Monocytes (test code = Monocytes) 5.3 2.0-12.0 [place] 255661-12-08 15:25:00 Test Item Value Reference Range Interpretation Comments Eosinophils (test code = 3.6 See_Comment [A utomated message] The Eosinophils) system which ge nerated this result tra nsmitted reference range : <=4.0. The reference r carlos was not used to int erpret this result as normal/abnormal . [facility] SystemJczyudrUFTGAAIXSD2132-16-37 15:25:00 Test Item Value Reference Range Interpretation Comments Basophils (test code = 0.8 See_Comment [Aut omated message] The Basophils) system which ge nerated this result tra nsmitted reference range : <=1.0. The reference r carlos was not used to int erpret this result as normal/abnormal . [facility] SystemOucvfjlFRHRYLJDGG3274-10-77 15:25:00 Test Item Value Reference Range Interpretation Comments Neutrophils # (test code = Neutrophils 6.0 1.5-8.1 #) [facility] SystemBikepkqJFREXHVTJB1418-77-17 15:25:00 Test Item Value Reference Range Interpretation Comments Lymphocytes # (test code = Lymphocytes 1.8 1.0-5.5 #) [facility] SystemPpjszrfJBAABDQNWI6927-46-64 15:25:00 Test Item Value Reference Range Interpretation Comments Monocytes # (test code 0.5 See_Comment [Aut omated message] The = Monocytes #) system which generated this result tra nsmitted reference range : <=0.8. The reference r carlos was not used to int erpret this result as normal/abnormal . [facility] SystemIszacsvYZIRJCVKSN5178-66-82 15:25:00 Test Item Value Reference Range Interpretation Comments Eosinophils # (test code 0.3 See_Comment [A utomated message] The = Eosinophils #) system wh h generated this result tra nsmitted reference range : <=0.5. The reference r carlos was not used to int erpret this result as normal/abnormal . [facility] SystemTnfgcnzWDHDYTDMMR9813-05-68 15:25:00 Test Item Value Reference Range Interpretation Comments Basophils # (test code 0.1 See_Comment [Aut omated message] The = Basophils #) system which generated this result tra nsmitted reference range : <=0.2. The reference r carlos was not used to int erpret this result as normal/abnormal . [facility] HospitalYfduvdzYDFGQUZSBT8593-05-60 15:25:00 Test Item Value Reference Range Interpretation Comments Albumin % (test code = Albumin %) 54.0 55.8-66.1 [place] [address]-12-08 15:25:00 Test Item Value Reference Range Interpretation Comments Alpha 1 % (test code = Alpha 1 %) 6.4 2.8-4.9 [facility]nkvutaUMEEHPBZQJ0263-32-96 15:25:00 Test Item Value Reference Range Interpretation Comments Alpha 2 % (test code = Alpha 2 %) 13.4 7.0-11.9 [facility]CwpzjgkNCOVLTDDAO7715-95-73 15:25:00 Test Item Value Reference Range Interpretation Comments Beta % (test code = Beta %) 11.5 7.8-13.7 [facility] WorthUttlixbAXWFAVSYSL3639-93-42 15:25:00 Test Item Value Reference Range Interpretation Comments Gamma % (test code = Gamma %) 14.7 11.1-18.7 [facility] WorthOuwcsyjJJTYONAYYE8883-15-86 15:25:00 Test Item Value Reference Range Interpretation Comments Albumin (SPE) (test code = Albumin 3.89 3.57-5.55 (SPE)) [facility]manYwaeuplHPBEEZTGFL3469-21-97 15:25:00 Test Item Value Reference Range Interpretation Comments Alpha 1 Glob (test code = Alpha 1 Glob) 0.46 0.18-0.41 [facility]manNgrpbsaKLPSAYRDVL7864-86-07 15:25:00 Test Item Value Reference Range Interpretation Comments Alpha 2 Glob (test code = Alpha 2 Glob) 0.96 0.45-1.00 [facility]manVemoyjnGIGQYRTMEY2499-75-64 15:25:00 Test Item Value Reference Range Interpretation Comments Beta Glob (test code = Beta Glob) 0.83 0.50-1.15 [facility]manJriwckiMSHJUFIVZZ4247-33-33 15:25:00 Test Item Value Reference Range Interpretation Comments Gamma Glob (test code = Gamma Glob) 1.06 0.71-1.57 [facility] WorthGarzmwwULDUARTGVB5352-30-20 15:25:00 Test Item Value Reference Range Interpretation Comments Tot Prot (SPE) (test code = Tot Prot 7.2 6.4-8.4 (SPE)) [facility]manRulilhyEXCDSEEKTQ6814-51-84 15:25:00 Test Item Value Reference Range Interpretation Comments SPE Interp (test Capillary electrophoresis code = SPE Interp) demonstrates a mild distortion of the gamma zone. This requires further evaluation by serum and 24 hr urine immunofixation. 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 Total protein is normal. Serum protein electrophoresis shows a mildly decreased alpha 1 globulin fraction and mild gamma distortion. Recommend urine immunofixation electrophoresis for further evaluation. Please submit a 24-hour urine specimen. I have personally reviewed the test results and concur with the resident's interpretation. [facility] [id number]-[id number] [facility] WorthFwrbzouSFJIOSKGCG1276-76-54 15:25:00 Test Item Value Reference Range Interpretation Comments KAREN Ser Pattern A distinct monoclonal (test code = KAREN Ser band is present in the Pattern) IgM izabella with a corresponding distinct band in the kappa light chain izabella. The polyclonal gamma globulin background is preserved in all lanes. [facility]aufmanDkqpipeZFINAOMNZJ7525-98-86 15:25:00 Test Item Value Reference Range Interpretation Comments KAREN Ser Interp The immunofixation (test code = KAREN electrophoresis results Ser Interp) (see pattern description) are consistent with monoclonal gammopathy of IgM-kappa isotype. Preservation of diffusely staining immunoreactivity indicates that the production of polyclonal immunoglobulins is not suppressed. Relevant medical information in the EMR was reviewed. I have personally reviewed the test results and concur with the resident's interpretation. [facility] 43801-HA [facility] WorthCurxjfeYXRDFCVTXI3042-93-00 15:25:00 Test Item Value Reference Range Interpretation Comments Ronda Free Light Chains (test code = 107.5 Ronda Free Light Chains) [facility]manKzatcsfCHLSECYANX5955-50-53 15:25:00 Test Item Value Reference Range Interpretation Comments Lambda Free Light Chains (test code = 68.4 Lambda Free Light Chains) [facility]manKbytykyZLGYXZRFOQ6998-62-46 15:25:00 Test Item Value Reference Range Interpretation Comments Ronda/Lambda Free Light Chains Ratio 1.57 1 (test code = Ronda/Lambda Free Light Chains Ratio) [place] [address] txzz2725-99-83 03:58:06 Test Item Value Reference Range Interpretation Comments Ventricular rate (test code = 253) Atrial rate (test code = 255) HI interval (test code = 266) QRSD interval (test code = 260) QT interval (test code = 264) QTC interval (test code = 265) P axis 1 (test code = 267) QRS axis 1 (test code = 268) T wave axis (test code = 270) EKG impression (test code = 273) [facility] Dsisxkge5714-91-62 18:57:51EXAMINATION: CT LUMBAR SPINE WO CONTRAST COMPARISON: [...] read back September 19, 2020 at 1357 hours.1RM1RAD_PS02[facility] 1 Ogwewrpj2833-02-46 18:15:14EXAMINATION: XR CHEST 1 PORTABLE CLINICAL HISTORY: 65 years Male CP COMPARISON: 07/10/2020 radiograph IMPRESSION: The lungs are clear and well-expanded with no focal consolidation, pneumothorax or pleural effusion. The cardiomediastinal silhouette is within normal limits. There is no acute osseous injury. The visualized upper abdomen is within normal limits. 1D2RAD_PS04Hm Interface, Radiology Results - 09/19/2020 1:18 PM CDT EXAMINATION: XR CHEST 1 PORTABLECLINICAL HISTORY: 65 years Male CPCOMPARISON: 07/10/2020 radiographIMPRESSION:The lungs are clear and well-expanded with no focal consolidation, pneumothorax or pleural effusion.The cardiomediastinal silhouette is within normal limits.There is no acute osseous injury.The visualized upper abdomen is within normal limits. [facility] Interpretation - Not an Xpbvj9195-22-21 17:27:13Maryan Oneill MD 09/19/2020 6:41 [facility] [place] Preliminary Interpretation - Not an OrderPerformed by: Maryan Oneill MDAuthorized by: Maryan Oneill MD ECG reviewed by ED Physician in the absence of a diamond broker: yes Interpretation: Interpretation: non- specific Rate: ECG rate: 71 ECG rate assessment: normal Rhythm: Rhythm: sinus rhythm Ectopy: Ectopy: none QRS: QRS axis: Normal QRS intervals: NormalConduction: Conduction: abnormal Abnormal conduction: 1st degree ST segments: ST segments:NormalT waves: T waves: non-specificCT Abdomen Pelvis Wo Jpswtvjy3452-79-17 02:14:01EXAMINATION: CT ABDOMEN PELVIS WO CONTRAST CLINICAL [...] 1D2RAD_PS07Hm Interface, Radiology Results 07/24/2020 9:17 PM CDTFormatting of this note [...] disease with mild ascites.2.Right pulmonary hamartoma.3.Aortobiiliac stent.1D2RAD_PS07[facility] jdmqhkp8855-53-74 06:53:48 Test Item Value Reference Range Interpretation Comments Urine culture (test code = SEE COMMENT [id number]) [facility]2021-05-24 16:20:31Isabelle Wetzel MD 07/23/2020 11:21 AMAirway Date/Time: [...] RSI: No Number of Attempts at Approach: 4Fcplqr4452-71-22 01:07:00Megan Felix CRNA 07/11/2020 6:28 PMAirway Date/Time: 07/11/2020 8:07 PM Location: OR Performed by: ALYSSA/AA and anesthesiologistAnesthesiologist: Serge Tilley, YAJAIRAesident/ALYSSA/AA: Megan Felix CRNAAuthorized by: Megan Felix CRNA [...] of Attempts at Approach: 1XR Abdomen 1 [id number] 01:32:09EXAMINATION: XR ABDOMEN 1 VW CLINICAL HISTORY: Abdominal pain and PD Cath COMPARISON: None. FINDINGS: There is an aortic stent graft. Opaque catheter overlies the lower abdomen with the coiled portion overlying the left iliac wing. There is increase in the amount of gas and feces in the colon. IMPRESSION:As above [facility]-[id number] Interface, Radiology Results - 07/10/2020 8:35 PM CDT EXAMINATION: XR ABDOMEN 1 VWCLINICAL HISTORY: Abdominal pain and PD CathCOMPARISON: None.FINDINGS:There is an aortic stent graft.Opaque catheter overlies the lower abdomen with the coiled portion overlying the left iliac wing.There is increase in the amount of gas and feces in the colon.IMPRESSION:As aboveH[facility]TSMAN [facility]-[id number] Health [facility] [id number] 12:59:00 Test Item Value Reference Range Interpretation Comments Ferritin Lvl (test code = Ferritin Lvl) 228 22-275 [place] 241531-02-03 12:59:00 Test Item Value Reference Range Interpretation Comments Iron (test code = Iron) 33 [facility]2021-02-03 12:59:00 Test Item Value Reference Range Interpretation Comments TIBC (test code = TIBC) 262 [place] 241531-02-03 12:59:00 Test Item Value Reference Range Interpretation Comments % Satur Fe (test code = % Satur Fe) 13 [place] 533061-02-03 12:59:00 Test Item Value Reference Range Interpretation Comments Creatinine Lvl (test code = Creatinine 5.71 0.50-1.40 Lvl) [place] 533061-02-03 12:59:00 Test Item Value Reference Range Interpretation Comments eGFR (test code = eGFR) 10 [place] 533061-02-03 12:59:00 Test Item Value Reference Range Interpretation Comments Glucose Lvl (test code = Glucose Lvl) 72 70-99 [place] 533061-02-03 12:59:00 Test Item Value Reference Range Interpretation Comments BUN (test code = BUN) 47 7-22 [place] 533061-02-03 12:59:00 Test Item Value Reference Range Interpretation Comments Creatinine Lvl (test code = Creatinine 5.59 0.50-1.40 Lvl) [place] 533061-02-03 12:59:00 Test Item Value Reference Range Interpretation Comments Sodium Lvl (test code = Sodium Lvl) 143 135-145 [place] 533061-02-03 12:59:00 Test Item Value Reference Range Interpretation Comments Potassium Lvl (test code = Potassium 4.0 3.5-5.1 Lvl) [place] 533061-02-03 12:59:00 Test Item Value Reference Range Interpretation Comments Chloride Lvl (test code = Chloride Lvl) 110 95-109 [place] 533061-02-03 12:59:00 Test Item Value Reference Range Interpretation Comments CO2 (test code = CO2) 24 24-32 [place] 533061-02-03 12:59:00 Test Item Value Reference Range Interpretation Comments Calcium Lvl (test code = Calcium Lvl) 8.7 8.5-10.5 [place] 533061-02-03 12:59:00 Test Item Value Reference Range Interpretation Comments Total Protein (test code = Total 7.4 6.4-8.4 Protein) [place] 533061-02-03 12:59:00 Test Item Value Reference Range Interpretation Comments Albumin Lvl (test code = Albumin Lvl) 3.5 3.5-5.0 [place] 533061-02-03 12:59:00 Test Item Value Reference Range Interpretation Comments ALT (test code = ALT) 12 See_Comment [Auto mated message] The system which ge nerated this result transmit nicko reference range : <=65. The reference range was not used to interpr et this result as adebayo l/abnormal. [place] 533061-02-03 12:59:00 Test Item Value Reference Range Interpretation Comments AST (test code = AST) 14 See_Comment [Auto mated message] The system which ge nerated this result transmit nicko reference range : <=37. The reference range was not used to interpr et this result as adebayo l/abnormal. [place] 533061-02-03 12:59:00 Test Item Value Reference Range Interpretation Comments Alk Phos (test code = Alk Phos) 58 39-136 [facility] [id number] 12:59:00 Test Item Value Reference Range Interpretation Comments Bili Total (test code = Bili Total) 0.3 0.2-1.3 [facility] [id number] 12:59:00 Test Item Value Reference Range Interpretation Comments AGAP (test code = AGAP) 13.0 10.0-20.0 [facility] Worth[facility] [id number] 12:59:00 Test Item Value Reference Range Interpretation Comments B/C Ratio (test code = B/C Ratio) 8 1 6-25 [facility] [id number] 12:59:00 Test Item Value Reference Range Interpretation Comments Globulin (test code = Globulin) 3.9 2.7-4.2 [facility] Worth[facility] [id number] 12:59:00 Test Item Value Reference Range Interpretation Comments A/G Ratio (test code = A/G Ratio) 0.9 1 0.7-1.6 [facility]2021-02-03 12:59:00 Test Item Value Reference Range Interpretation Comments eGFR (test code = eGFR) 10 [facility]2021-02-03 12:59:00 Test Item Value Reference Range Interpretation Comments Magnesium Lvl (test code = Magnesium 1.5 1.8-2.4 Lvl) [facility]2021-02-03 12:59:00 Test Item Value Reference Range Interpretation Comments Phosphorus (test code = Phosphorus) 5.0 2.5-4.5 [facility]2021-02-03 12:59:00 Test Item Value Reference Range Interpretation Comments Uric Acid (test code = Uric Acid) 5.8 3.8-8.0 [facility] [id number] 12:59:00 Test Item Value Reference Range Interpretation Comments Vitamin D, 25-OH, Total (test code = 33 Vitamin D, 25-OH, Total) [facility] [id number] 12:59:00 Test Item Value Reference Range Interpretation Comments Phencyclidine Scr (test code = Negative Phencyclidine Scr) [facility] [id number] 12:59:00 Test Item Value Reference Range Interpretation Comments Kaitlin Scr (test code = Kaitlin Scr) Negative [facility] [id number] 12:59:00 Test Item Value Reference Range Interpretation Comments Cannab Scr (test code = Cannab Scr) Negative [facility] [id number] 12:59:00 Test Item Value Reference Range Interpretation Comments Methadone Scr (test code = Methadone Negative Scr) [facility] [id number] 12:59:00 Test Item Value Reference Range Interpretation Comments Cocaine Scr (test code = Cocaine Negative Scr) [facility]2021-02-03 12:59:00 Test Item Value Reference Range Interpretation Comments Benzodiaz Scr (test code = Benzodiaz Negative Scr) [facility]2021-02-03 12:59:00 Test Item Value Reference Range Interpretation Comments Amph Scr (test code = Amph Scr) Negative [facility] [id number] 12:59:00 Test Item Value Reference Range Interpretation Comments Opiate Scr (test code = Opiate Scr) Negative [facility]2021-02-03 12:59:00 Test Item Value Reference Range Interpretation Comments 6-Acetylmor Scr (test code = Negative 6-Acetylmor Scr) [facility]2021-02-03 12:59:00 Test Item Value Reference Range Interpretation Comments Cryptococcal Ag (test Negative (04/04/20 code = Cryptococcal Ag) 6:59 AM) [facility]2021-02-03 12:59:00 Test Item Value Reference Range Interpretation Comments Histo Yeast Ab (test code = Histo Yeast <1:8 Ab) [facility]2021-02-03 12:59:00 Test Item Value Reference Range Interpretation Comments Histo mycel Ab (test code = Histo mycel <1:8 Ab) [facility]2021-02-03 12:59:00 Test Item Value Reference Range Interpretation Comments Blastomyces Ab (test code = Negative Blastomyces Ab) [facility]2021-02-03 12:59:00 Test Item Value Reference Range Interpretation Comments Coccid Ab IgM (test code = Coccid Ab NEGATIVE IgM) [facility]2021-02-03 12:59:00 Test Item Value Reference Range Interpretation Comments Coccid Ab IgG (test code = Coccid Ab NEGATIVE IgG) [facility] SystemUdupwnpDQRLASLZMI9579-12-66 12:59:00 Test Item Value Reference Range Interpretation Comments Segs (test code = Segs) 65.6 45.0-75.0 [place] 255661-02-03 12:59:00 Test Item Value Reference Range Interpretation Comments Lymphocytes (test code = Lymphocytes) 21.6 20.0-40.0 [place] 255661-02-03 12:59:00 Test Item Value Reference Range Interpretation Comments Monocytes (test code = Monocytes) 8.5 2.0-12.0 [place] [address]-02-03 12:59:00 Test Item Value Reference Range Interpretation Comments Eosinophils (test code = 3.5 See_Comment [A utomated message] The Eosinophils) system which ge nerated this result tra nsmitted reference range : <=4.0. The reference r carlos was not used to int erpret this result as normal/abnormal . [facility] SystemKoksejqAXRGSEIBLZ4667-19-77 12:59:00 Test Item Value Reference Range Interpretation Comments Basophils (test code = 0.8 See_Comment [Aut omated message] The Basophils) system which ge nerated this result tra nsmitted reference range : <=1.0. The reference r carlos was not used to int erpret this result as normal/abnormal . [place] 255661-02-03 12:59:00 Test Item Value Reference Range Interpretation Comments Neutrophils # (test code = Neutrophils 5.1 1.5-8.1 #) [facility] SystemQnaetexAHVQLLHCQJ7797-19-37 12:59:00 Test Item Value Reference Range Interpretation Comments Lymphocytes # (test code = Lymphocytes 1.7 1.0-5.5 #) [place] 255661-02-03 12:59:00 Test Item Value Reference Range Interpretation Comments Monocytes # (test code 0.7 See_Comment [Aut omated message] The = Monocytes #) system which generated this result tra nsmitted reference range : <=0.8. The reference r carlos was not used to int erpret this result as normal/abnormal . [facility] SystemZqfarxfQQRMOBNVVW7625-96-41 12:59:00 Test Item Value Reference Range Interpretation Comments Eosinophils # (test code 0.3 See_Comment [A utomated message] The = Eosinophils #) system whic h generated this result tra nsmitted reference range : <=0.5. The reference r carlos was not used to int erpret this result as normal/abnormal . [place] 255661-02-03 12:59:00 Test Item Value Reference Range Interpretation Comments Basophils # (test code 0.1 See_Comment [Aut omated message] The = Basophils #) system which generated this result tra nsmitted reference range : <=0.2. The reference r carlos was not used to int erpret this result as normal/abnormal . [place] 255661-02-03 12:59:00 Test Item Value Reference Range Interpretation Comments PT (test code = PT) 12.8 s 12.0-14.7 [facility] SystemLxudpdcXSXAKIRDUJ7836-62-51 12:59:00 Test Item Value Reference Range Interpretation Comments INR (test code = INR) 0.97 1 0.85-1.17 [place] 255661-02-03 12:59:00 Test Item Value Reference Range Interpretation Comments PTT (test code = PTT) 32.2 s 22.9-35.8 [facility] SystemEttielhIGAOXBMSIA2081-94-81 12:59:00 Test Item Value Reference Range Interpretation Comments WBC (test code = WBC) 7.8 3.7-10.4 [facility] SystemCqxoeplBFYZNHMZPV9498-18-97 12:59:00 Test Item Value Reference Range Interpretation Comments RBC (test code = RBC) 3.89 4.70-6.10 [facility] SystemXdavsyeDAFHVJTYYX4637-80-00 12:59:00 Test Item Value Reference Range Interpretation Comments Hgb (test code = Hgb) 11.5 14.0-18.0 [place] 255661-02-03 12:59:00 Test Item Value Reference Range Interpretation Comments Hct (test code = Hct) 35.9 42.0-54.0 [facility] SystemJyvepudTWAXFUYJRM2102-53-35 12:59:00 Test Item Value Reference Range Interpretation Comments MCV (test code = MCV) 92.5 80.0-94.0 [place] 255661-02-03 12:59:00 Test Item Value Reference Range Interpretation Comments MCH (test code = MCH) 29.5 pg 27.0-31.0 [facility] SystemRutokzyJMKWROKJHY1024-24-50 12:59:00 Test Item Value Reference Range Interpretation Comments MCHC (test code = MCHC) 31.9 32.0-36.0 [facility] SystemLwbwelpVUCTODNFJR3187-89-24 12:59:00 Test Item Value Reference Range Interpretation Comments RDW (test code = RDW) 15.3 11.5-14.5 [facility] SystemHzfrqqtBAZPIUYQVE1920-44-60 12:59:00 Test Item Value Reference Range Interpretation Comments Platelet (test code = Platelet) 196 133-450 [place] 255661-02-03 12:59:00 Test Item Value Reference Range Interpretation Comments MPV (test code = MPV) 9.0 7.4-10.4 [place] 971801-02-03 12:59:00 Test Item Value Reference Range Interpretation Comments Cystatin C (test code = Cystatin C) 3.96 [place] 971801-02-03 12:59:00 Test Item Value Reference Range Interpretation Comments eGFR Cystatin-based (test code = eGFR 12 Cystatin-based) [place] 971801-02-03 12:59:00 Test Item Value Reference Range Interpretation Comments Albumin % (test code = Albumin %) 52.3 55.8-66.1 [facility]manYoknuyqUOAUWULXEH7240-72-95 12:59:00 Test Item Value Reference Range Interpretation Comments Alpha 1 % (test code = Alpha 1 %) 6.2 2.8-4.9 [facility] HospitalVwstsomGPUSIALISN5222-12-84 12:59:00 Test Item Value Reference Range Interpretation Comments Alpha 2 % (test code = Alpha 2 %) 12.7 7.0-11.9 [facility]manEtosvrvBLLTWEIFEW9029-82-61 12:59:00 Test Item Value Reference Range Interpretation Comments Beta % (test code = Beta %) 11.9 7.8-13.7 [facility] HospitalUtmqfckYDLLHYGPVW3478-57-46 12:59:00 Test Item Value Reference Range Interpretation Comments Gamma % (test code = Gamma %) 16.9 11.1-18.7 [facility] HospitalLlirdmlDKYPYBUYXL9695-71-34 12:59:00 Test Item Value Reference Range Interpretation Comments Albumin (SPE) (test code = Albumin 3.87 3.57-5.55 (SPE)) [facility] HospitalCkomqidIYASVNGZKV8271-40-74 12:59:00 Test Item Value Reference Range Interpretation Comments Alpha 1 Glob (test code = Alpha 1 Glob) 0.46 0.18-0.41 [facility]manQjqsbuoCGRDJFYUFB3100-85-36 12:59:00 Test Item Value Reference Range Interpretation Comments Alpha 2 Glob (test code = Alpha 2 Glob) 0.94 0.45-1.00 [facility] HospitalCctcugwOZBEXTSUQO2428-76-41 12:59:00 Test Item Value Reference Range Interpretation Comments Beta Glob (test code = Beta Glob) 0.88 0.50-1.15 [facility]manIsumnrdLCBFWNNCTZ4539-89-10 12:59:00 Test Item Value Reference Range Interpretation Comments Gamma Glob (test code = Gamma Glob) 1.25 0.71-1.57 [facility]manBquixjuTBZTAKMXHW2049-40-14 12:59:00 Test Item Value Reference Range Interpretation Comments Tot Prot (SPE) (test code = Tot Prot 7.4 6.4-8.4 (SPE)) [facility] HospitalXkprcakEWOVKEYFKK9583-76-21 12:59:00 Test Item Value Reference Range Interpretation Comments SPE Interp (test Capillary electrophoresis code = SPE Interp) demonstrates a small peak (0.40 g/dl) in the gamma zone, suggestive of a monoclonal gammopathy. This requires confirmation by serum and 24 hour urine immunofixation. Total protein level is within the reference range. Serum protein electrophoresis shows an increase in the alpha-1 globulin fraction. All other globulin fractions are otherwise within the reference ranges. The electronic medical record has been reviewed for relevant history. I have personally reviewed the test results and concur with the resident's interpretation. CPT 03045-BV [facility]manNxpevjkZJUOFOLZWS2019-20-86 12:59:00 Test Item Value Reference Range Interpretation Comments Ronda Free Light Chains (test code = 119.9 Ronda Free Light Chains) [place] [address]-02-03 12:59:00 Test Item Value Reference Range Interpretation Comments Lambda Free Light Chains (test code = 69.6 Lambda Free Light Chains) [place] [address]-02-03 12:59:00 Test Item Value Reference Range Interpretation Comments Ronda/Lambda Free Light Chains Ratio 1.72 1 (test code = Ronda/Lambda Free Light Chains Ratio) [place] 971801-02-03 12:59:00 Test Item Value Reference Range Interpretation Comments CMV IgG (test code = CMV IgG) no gt [place] 971801-02-03 12:59:00 Test Item Value Reference Range Interpretation Comments EBV VCA IgG (test code = EBV VCA IgG) 427.00 [place] [address]-02-03 12:59:00 Test Item Value Reference Range Interpretation Comments HIV Ag/Ab 4th Gen Negative *NA*(04/04/20 (test code = HIV 6:59 AM) Ag/Ab 4th Gen) [place] 971801-02-03 12:59:00 Test Item Value Reference Range Interpretation Comments Hep A Tot (test code = Hep A Tot) REACTIVE [place] 971801-02-03 12:59:00 Test Item Value Reference Range Interpretation Comments Hep Bs Ab (test code = Hep Bs Ab) no gt [facility] HospitalZtoqyyrHEDZTUGAZJ2708-14-77 12:59:00 Test Item Value Reference Range Interpretation Comments Hep B Core Ab (test code = Hep B NON-REACTIVE Core Ab) [place] 971801-02-03 12:59:00 Test Item Value Reference Range Interpretation Comments Hep Bs Ag (test code = Hep Bs NON-REACTIVE Ag) [facility] HospitalMmljxbrFQGIQMSAUN2185-05-37 12:59:00 Test Item Value Reference Range Interpretation Comments Hep C Ab (test code = Hep C Ab) NON-REACTIVE [place] 971801-02-03 12:59:00 Test Item Value Reference Range Interpretation Comments Hep Signal to Cut-Off (test code = Hep 0.02 1 Signal to Cut-Off) [place] 971801-02-03 12:59:00 Test Item Value Reference Range Interpretation Comments HSV 1 IgG (test code = HSV 1 IgG) 23.80 [place] [address]-02-03 12:59:00 Test Item Value Reference Range Interpretation Comments HSV 2 IgG (test code = HSV 2 IgG) no gt [place] 971801-02-03 12:59:00 Test Item Value Reference Range Interpretation Comments T-Spot.TB (test code = T-Spot.TB) Negative [place] 971801-02-03 12:59:00 Test Item Value Reference Range Interpretation Comments T-Spot Pnl A Neg Ctrl Corrected (test 0 1 code = T-Spot Pnl A Neg Ctrl Corrected) [place] 971801-02-03 12:59:00 Test Item Value Reference Range Interpretation Comments T-Spot Pnl B Neg Ctrl Corrected (test 0 1 code = T-Spot Pnl B Neg Ctrl Corrected) [place] 971801-02-03 12:59:00 Test Item Value Reference Range Interpretation Comments T-Spot Neg Ctrl (test code = T-Spot Passed Neg Ctrl) [place] 971801-02-03 12:59:00 Test Item Value Reference Range Interpretation Comments T-Spot Pos Ctrl (test code = T-Spot Passed Pos Ctrl) [place] 971801-02-03 12:59:00 Test Item Value Reference Range Interpretation Comments Treponemal Ab (test code Non-Reactive = Treponemal Ab) *NA*(04/04/20 6:59 AM) [place] 971801-02-03 12:59:00 Test Item Value Reference Range Interpretation Comments Varicella IgG (test code = Varicella 203.70 IgG) [place] 971801-02-03 12:59:00 Test Item Value Reference Range Interpretation Comments Mumps IgG (test code = Mumps IgG) no gt [facility]manKwigidmFJZXAUBWPL5382-34-26 12:59:00 Test Item Value Reference Range Interpretation Comments Rubella IgG (test code = Rubella IgG) no gt [facility] WorthVzhhxnxBRWXSNLFTC8529-42-11 12:59:00 Test Item Value Reference Range Interpretation Comments Rubeola IgG (test code = Rubeola IgG) 192.00 [facility]EmksootAUVRWAXSRO4571-10-40 12:59:00 Test Item Value Reference Range Interpretation Comments KAREN Ser Pattern A distinct monoclonal (test code = KAREN Ser band is present in the Pattern) IgM izabella with a corresponding band in the kappa light chain izabella. The polyclonal gamma globulin background is preserved in all lanes. [facility]manYdziimjETVASMSBYJ4018-21-82 12:59:00 Test Item Value Reference Range Interpretation Comments KAREN Ser Interp The immunofixation (test code = KAREN electrophoresis results Ser Interp) (see pattern description) are consistent with monoclonal gammopathy of IgM-kappa isotype. Preservation of diffusely staining immunoreactivity indicates that the production of polyclonal immunoglobulins is not suppressed. Relevant medical information in the EMR was reviewed. I have personally reviewed the test results and concur with the resident's interpretation. CPT 18590-RZ [facility]manGqkbpvpIQLBPH3226-96-18 12:59:00 Test Item Value Reference Range Interpretation Comments Trig (test code = Trig) 70 [facility]manYncrxryWKLJFO4399-93-06 12:59:00 Test Item Value Reference Range Interpretation Comments Chol (test code = Chol) 102 [facility]SjwfhhpHYHTCC2360-30-11 12:59:00 Test Item Value Reference Range Interpretation Comments HDL (test code = HDL) 33 [facility]manHlsqvaaVPMHXX4686-75-68 12:59:00 Test Item Value Reference Range Interpretation Comments CHD Risk (test code = CHD Risk) 3.09 1 4.00-7.30 [facility] WorthAgkyqpzOMVRPB9703-18-48 12:59:00 Test Item Value Reference Range Interpretation Comments LDL (Calculated) (test code = LDL 55 (Calculated)) [facility]manQbwjzgwBJCKCA4306-24-43 12:59:00 Test Item Value Reference Range Interpretation Comments VLDL (test code = VLDL) 14 1 [facility]PARASITOLOGY - [id number] 12:59:00 Test Item Value Reference Range Interpretation Comments Strongyloides Antibodies (test code POSITIVE = Strongyloides Antibodies) [facility] WorthannPARATHYROID [id number] 12:59:00 Test Item Value Reference Range Interpretation Comments PTH Intact (test code = PTH Intact) 635.6 18.4-80.1 [facility] [id number] 12:59:00 Test Item Value Reference Range Interpretation Comments Misc [facility] (test code = Misc SEE COMMENT [facility]) [facility]SPECIAL [id number] 12:59:00 Test Item Value Reference Range Interpretation Comments Nicotine Lvl (test code = Nicotine Lvl) no gt [facility] WorthannSPECIAL [id number] 12:59:00 Test Item Value Reference Range Interpretation Comments Cotinine Lvl (test code = Cotinine Lvl) no gt [facility]SPE[facility] [id number] 12:59:00 Test Item Value Reference Range Interpretation Comments Hgb A1C (test code = Hgb A1C) 6.0 [facility] [id number] 12:59:00 Test Item Value Reference Range Interpretation Comments PSA (test code = PSA) 1.5 [facility]annVIRAL - [id number] 12:59:00 Test Item Value Reference Range Interpretation Comments T cruzi (Chagas) Ab (test code = NONREACTIVE T cruzi (Chagas) Ab) [facility]IR[facility] - [id number] 12:59:00 Test Item Value Reference Range Interpretation Comments W Nile Ab IgG (test code = W Nile Ab no gt IgG) [facility]VIR[facility] - [id number] 12:59:00 Test Item Value Reference Range Interpretation Comments W Nile Ab IgM (test code = W Nile Ab no gt IgM) [facility] [id number] 12:59:00 Test Item Value Reference Range Interpretation Comments Ferritin Lvl (test code = Ferritin Lvl) 228 22-275 [facility] WorthannANEMIA [id number] 12:59:00 Test Item Value Reference Range Interpretation Comments Iron (test code = Iron) 33 [facility] [id number] 12:59:00 Test Item Value Reference Range Interpretation Comments TIBC (test code = TIBC) 262 [facility] [id number] 12:59:00 Test Item Value Reference Range Interpretation Comments % Satur Fe (test code = % Satur Fe) 13 [place] 533061-02-03 12:59:00 Test Item Value Reference Range Interpretation Comments Creatinine Lvl (test code = Creatinine 5.71 0.50-1.40 Lvl) [place] 533061-02-03 12:59:00 Test Item Value Reference Range Interpretation Comments eGFR (test code = eGFR) 10 [place] 533061-02-03 12:59:00 Test Item Value Reference Range Interpretation Comments Glucose Lvl (test code = Glucose Lvl) 72 70-99 [place] 533061-02-03 12:59:00 Test Item Value Reference Range Interpretation Comments BUN (test code = BUN) 47 7-22 [place] 533061-02-03 12:59:00 Test Item Value Reference Range Interpretation Comments Creatinine Lvl (test code = Creatinine 5.59 0.50-1.40 Lvl) [place] 533061-02-03 12:59:00 Test Item Value Reference Range Interpretation Comments Sodium Lvl (test code = Sodium Lvl) 143 135-145 [place] 533061-02-03 12:59:00 Test Item Value Reference Range Interpretation Comments Potassium Lvl (test code = Potassium 4.0 3.5-5.1 Lvl) [place] 533061-02-03 12:59:00 Test Item Value Reference Range Interpretation Comments Chloride Lvl (test code = Chloride Lvl) 110 95-109 [place] 533061-02-03 12:59:00 Test Item Value Reference Range Interpretation Comments CO2 (test code = CO2) 24 24-32 [place] 533061-02-03 12:59:00 Test Item Value Reference Range Interpretation Comments Calcium Lvl (test code = Calcium Lvl) 8.7 8.5-10.5 [place] 533061-02-03 12:59:00 Test Item Value Reference Range Interpretation Comments Total Protein (test code = Total 7.4 6.4-8.4 Protein) [place] 533061-02-03 12:59:00 Test Item Value Reference Range Interpretation Comments Albumin Lvl (test code = Albumin Lvl) 3.5 3.5-5.0 [place] 533061-02-03 12:59:00 Test Item Value Reference Range Interpretation Comments ALT (test code = ALT) 12 See_Comment [Auto mated message] The system which ge nerated this result transmit nicko reference range : <=65. The reference range was not used to interpr et this result as adebayo l/abnormal. [facility] zanda [id number] 12:59:00 Test Item Value Reference Range Interpretation Comments AST (test code = AST) 14 See_Comment [Auto mated message] The system which ge nerated this result transmit nicko reference range : <=37. The reference range was not used to interpr et this result as adebayo l/abnormal. [facility] zanda [id number] 12:59:00 Test Item Value Reference Range Interpretation Comments Alk Phos (test code = Alk Phos) 58 39-136 [facility] zanda [id number] 12:59:00 Test Item Value Reference Range Interpretation Comments Bili Total (test code = Bili Total) 0.3 0.2-1.3 [facility] zanda [id number] 12:59:00 Test Item Value Reference Range Interpretation Comments AGAP (test code = AGAP) 13.0 10.0-20.0 [facility] zanda [id number] 12:59:00 Test Item Value Reference Range Interpretation Comments B/C Ratio (test code = B/C Ratio) 8 1 6-25 [facility] zanda [id number] 12:59:00 Test Item Value Reference Range Interpretation Comments Globulin (test code = Globulin) 3.9 2.7-4.2 [facility] zanda [id number] 12:59:00 Test Item Value Reference Range Interpretation Comments A/G Ratio (test code = A/G Ratio) 0.9 1 0.7-1.6 [facility] zanda [id number] 12:59:00 Test Item Value Reference Range Interpretation Comments eGFR (test code = eGFR) 10 [facility] zanda [id number] 12:59:00 Test Item Value Reference Range Interpretation Comments Magnesium Lvl (test code = Magnesium 1.5 1.8-2.4 Lvl) [facility] zanda [id number] 12:59:00 Test Item Value Reference Range Interpretation Comments Phosphorus (test code = Phosphorus) 5.0 2.5-4.5 [facility] zanda [id number] 12:59:00 Test Item Value Reference Range Interpretation Comments Uric Acid (test code = Uric Acid) 5.8 3.8-8.0 [facility] Center'dannCHEM [id number] 12:59:00 Test Item Value Reference Range Interpretation Comments Vitamin D, 25-OH, Total (test code = 33 Vitamin D, 25-OH, Total) [facility]annDRUG [id number] 12:59:00 Test Item Value Reference Range Interpretation Comments Phencyclidine Scr (test code = Negative Phencyclidine Scr) [facility]annDRUG [id number] 12:59:00 Test Item Value Reference Range Interpretation Comments Kaitlin Scr (test code = Kaitlin Scr) Negative [facility] WorthannDRUG [id number] 12:59:00 Test Item Value Reference Range Interpretation Comments Cannab Scr (test code = Cannab Scr) Negative [facility]annDRUG [id number] 12:59:00 Test Item Value Reference Range Interpretation Comments Methadone Scr (test code = Methadone Negative Scr) [facility]annDRUG [id number] 12:59:00 Test Item Value Reference Range Interpretation Comments Cocaine Scr (test code = Cocaine Negative Scr) [facility]annDRUG [id number] 12:59:00 Test Item Value Reference Range Interpretation Comments Benzodiaz Scr (test code = Benzodiaz Negative Scr) [facility]annDRUG [id number] 12:59:00 Test Item Value Reference Range Interpretation Comments Amph Scr (test code = Amph Scr) Negative [facility]annDRUG [id number] 12:59:00 Test Item Value Reference Range Interpretation Comments Opiate Scr (test code = Opiate Scr) Negative [facility]annDRUG [id number] 12:59:00 Test Item Value Reference Range Interpretation Comments 6-Acetylmor Scr (test code = Negative 6-Acetylmor Scr) [facility]annFUNGAL - [id number] 12:59:00 Test Item Value Reference Range Interpretation Comments Cryptococcal Ag (test Negative (04/04/20 code = Cryptococcal Ag) 6:59 AM) [facility]annFUNGAL - [id number] 12:59:00 Test Item Value Reference Range Interpretation Comments Histo Yeast Ab (test code = Histo Yeast <1:8 Ab) [facility]FUN[facility] - [id number] 12:59:00 Test Item Value Reference Range Interpretation Comments Histo mycel Ab (test code = Histo mycel <1:8 Ab) [facility]2021-02-03 12:59:00 Test Item Value Reference Range Interpretation Comments Blastomyces Ab (test code = Negative Blastomyces Ab) [facility]2021-02-03 12:59:00 Test Item Value Reference Range Interpretation Comments Coccid Ab IgM (test code = Coccid Ab NEGATIVE IgM) [facility]2021-02-03 12:59:00 Test Item Value Reference Range Interpretation Comments Coccid Ab IgG (test code = Coccid Ab NEGATIVE IgG) [facility] SystemPlofxalRQLGTZNDYI5138-07-75 12:59:00 Test Item Value Reference Range Interpretation Comments Segs (test code = Segs) 65.6 45.0-75.0 [place] 255661-02-03 12:59:00 Test Item Value Reference Range Interpretation Comments Lymphocytes (test code = Lymphocytes) 21.6 20.0-40.0 [place] 255661-02-03 12:59:00 Test Item Value Reference Range Interpretation Comments Monocytes (test code = Monocytes) 8.5 2.0-12.0 [facility] SystemTnretdvBKRKFWNAIV1995-10-95 12:59:00 Test Item Value Reference Range Interpretation Comments Eosinophils (test code = 3.5 See_Comment [A utomated message] The Eosinophils) system which ge nerated this result tra nsmitted reference range : <=4.0. The reference r carlos was not used to int erpret this result as normal/abnormal . [facility] SystemAejqqykMTZAAPXWXA5243-28-78 12:59:00 Test Item Value Reference Range Interpretation Comments Basophils (test code = 0.8 See_Comment [Aut omated message] The Basophils) system which ge nerated this result tra nsmitted reference range : <=1.0. The reference r carlos was not used to int erpret this result as normal/abnormal . [facility] SystemRkdbehoIBIKDKMRET0058-58-90 12:59:00 Test Item Value Reference Range Interpretation Comments Neutrophils # (test code = Neutrophils 5.1 1.5-8.1 #) [facility] SystemGxkikfqGIFKQAECAW0025-18-54 12:59:00 Test Item Value Reference Range Interpretation Comments Lymphocytes # (test code = Lymphocytes 1.7 1.0-5.5 #) [place] 255661-02-03 12:59:00 Test Item Value Reference Range Interpretation Comments Monocytes # (test code 0.7 See_Comment [Aut omated message] The = Monocytes #) system which generated this result tra nsmitted reference range : <=0.8. The reference r carlos was not used to int erpret this result as normal/abnormal . [place] 255661-02-03 12:59:00 Test Item Value Reference Range Interpretation Comments Eosinophils # (test code 0.3 See_Comment [A utomated message] The = Eosinophils #) system whic h generated this result tra nsmitted reference range : <=0.5. The reference r carlos was not used to int erpret this result as normal/abnormal . [place] 255661-02-03 12:59:00 Test Item Value Reference Range Interpretation Comments Basophils # (test code 0.1 See_Comment [Aut omated message] The = Basophils #) system which generated this result tra nsmitted reference range : <=0.2. The reference r carlos was not used to int erpret this result as normal/abnormal . [place] 255661-02-03 12:59:00 Test Item Value Reference Range Interpretation Comments PT (test code = PT) 12.8 s 12.0-14.7 [place] 255661-02-03 12:59:00 Test Item Value Reference Range Interpretation Comments INR (test code = INR) 0.97 1 0.85-1.17 [place] [address]-02-03 12:59:00 Test Item Value Reference Range Interpretation Comments PTT (test code = PTT) 32.2 s 22.9-35.8 [place] [address]-02-03 12:59:00 Test Item Value Reference Range Interpretation Comments WBC (test code = WBC) 7.8 3.7-10.4 [place] [address]-02-03 12:59:00 Test Item Value Reference Range Interpretation Comments RBC (test code = RBC) 3.89 4.70-6.10 [place] [address]-02-03 12:59:00 Test Item Value Reference Range Interpretation Comments Hgb (test code = Hgb) 11.5 14.0-18.0 [place] 255661-02-03 12:59:00 Test Item Value Reference Range Interpretation Comments Hct (test code = Hct) 35.9 42.0-54.0 [place] 255661-02-03 12:59:00 Test Item Value Reference Range Interpretation Comments MCV (test code = MCV) 92.5 80.0-94.0 [place] 255661-02-03 12:59:00 Test Item Value Reference Range Interpretation Comments MCH (test code = MCH) 29.5 pg 27.0-31.0 [place] 255661-02-03 12:59:00 Test Item Value Reference Range Interpretation Comments MCHC (test code = MCHC) 31.9 32.0-36.0 [place] 255661-02-03 12:59:00 Test Item Value Reference Range Interpretation Comments RDW (test code = RDW) 15.3 11.5-14.5 [place] 255661-02-03 12:59:00 Test Item Value Reference Range Interpretation Comments Platelet (test code = Platelet) 196 133-450 [facility] SystemUcdniglBPTUPDADGN1751-60-76 12:59:00 Test Item Value Reference Range Interpretation Comments MPV (test code = MPV) 9.0 7.4-10.4 [place] 971801-02-03 12:59:00 Test Item Value Reference Range Interpretation Comments Cystatin C (test code = Cystatin C) 3.96 [place] 971801-02-03 12:59:00 Test Item Value Reference Range Interpretation Comments eGFR Cystatin-based (test code = eGFR 12 Cystatin-based) [place] 971801-02-03 12:59:00 Test Item Value Reference Range Interpretation Comments Albumin % (test code = Albumin %) 52.3 55.8-66.1 [place] [address]-02-03 12:59:00 Test Item Value Reference Range Interpretation Comments Alpha 1 % (test code = Alpha 1 %) 6.2 2.8-4.9 [place] [address]-02-03 12:59:00 Test Item Value Reference Range Interpretation Comments Alpha 2 % (test code = Alpha 2 %) 12.7 7.0-11.9 [place] [address]-02-03 12:59:00 Test Item Value Reference Range Interpretation Comments Beta % (test code = Beta %) 11.9 7.8-13.7 [facility]LmqjypnQFIYAIJFRQ6432-50-64 12:59:00 Test Item Value Reference Range Interpretation Comments Gamma % (test code = Gamma %) 16.9 11.1-18.7 [facility] HospitalYffxsgkJGZSRDQSFX3934-14-51 12:59:00 Test Item Value Reference Range Interpretation Comments Albumin (SPE) (test code = Albumin 3.87 3.57-5.55 (SPE)) [facility] HospitalSkgldcmPPVMIXXECQ9591-07-23 12:59:00 Test Item Value Reference Range Interpretation Comments Alpha 1 Glob (test code = Alpha 1 Glob) 0.46 0.18-0.41 [place] 971801-02-03 12:59:00 Test Item Value Reference Range Interpretation Comments Alpha 2 Glob (test code = Alpha 2 Glob) 0.94 0.45-1.00 [place] 971801-02-03 12:59:00 Test Item Value Reference Range Interpretation Comments Beta Glob (test code = Beta Glob) 0.88 0.50-1.15 [facility]KzwkjzcRDVLIDXDVC4642-80-48 12:59:00 Test Item Value Reference Range Interpretation Comments Gamma Glob (test code = Gamma Glob) 1.25 0.71-1.57 [facility] HospitalNzgrcatTLRRSEZVSW1981-20-14 12:59:00 Test Item Value Reference Range Interpretation Comments Tot Prot (SPE) (test code = Tot Prot 7.4 6.4-8.4 (SPE)) [facility] HospitalVjortukPXYLSGRYGE8565-52-94 12:59:00 Test Item Value Reference Range Interpretation Comments SPE Interp (test Capillary electrophoresis code = SPE Interp) demonstrates a small peak (0.40 g/dl) in the gamma zone, suggestive of a monoclonal gammopathy. This requires confirmation by serum and 24 hour urine immunofixation. Total protein level is within the reference range. Serum protein electrophoresis shows an increase in the alpha-1 globulin fraction. All other globulin fractions are otherwise within the reference ranges. The electronic medical record has been reviewed for relevant history. I have personally reviewed the test results and concur with the resident's interpretation. CPT 16740-SK [facility]manDhdalslBKGNTECWGI5008-61-05 12:59:00 Test Item Value Reference Range Interpretation Comments Ronda Free Light Chains (test code = 119.9 Ronda Free Light Chains) [facility] HospitalEmjmryeJCVPZAGVGE7460-40-08 12:59:00 Test Item Value Reference Range Interpretation Comments Lambda Free Light Chains (test code = 69.6 Lambda Free Light Chains) [facility] HospitalFsjuuxxHJKTQJICSO9348-68-34 12:59:00 Test Item Value Reference Range Interpretation Comments Ronda/Lambda Free Light Chains Ratio 1.72 1 (test code = Ronda/Lambda Free Light Chains Ratio) [facility] HospitalOpivjvrNBWQICXTJM2688-87-28 12:59:00 Test Item Value Reference Range Interpretation Comments CMV IgG (test code = CMV IgG) no gt [facility] HospitalSonqeovYRAGYLEZJE9592-91-21 12:59:00 Test Item Value Reference Range Interpretation Comments EBV VCA IgG (test code = EBV VCA IgG) 427.00 [place] 971801-02-03 12:59:00 Test Item Value Reference Range Interpretation Comments HIV Ag/Ab 4th Gen Negative *NA*(04/04/20 (test code = HIV 6:59 AM) Ag/Ab 4th Gen) [facility] HospitalEzesjxrVETRQXVTSQ1855-91-37 12:59:00 Test Item Value Reference Range Interpretation Comments Hep A Tot (test code = Hep A Tot) REACTIVE [place] 971801-02-03 12:59:00 Test Item Value Reference Range Interpretation Comments Hep Bs Ab (test code = Hep Bs Ab) no gt [facility] HospitalSmhskweWUVDISUVHE1644-49-73 12:59:00 Test Item Value Reference Range Interpretation Comments Hep B Core Ab (test code = Hep B NON-REACTIVE Core Ab) [place] 971801-02-03 12:59:00 Test Item Value Reference Range Interpretation Comments Hep Bs Ag (test code = Hep Bs NON-REACTIVE Ag) [facility] HospitalVulwdebWVSZJUHMIB4862-39-50 12:59:00 Test Item Value Reference Range Interpretation Comments Hep C Ab (test code = Hep C Ab) NON-REACTIVE [place] [address]-02-03 12:59:00 Test Item Value Reference Range Interpretation Comments Hep Signal to Cut-Off (test code = Hep 0.02 1 Signal to Cut-Off) [place] 971801-02-03 12:59:00 Test Item Value Reference Range Interpretation Comments HSV 1 IgG (test code = HSV 1 IgG) 23.80 [place] [address]-02-03 12:59:00 Test Item Value Reference Range Interpretation Comments HSV 2 IgG (test code = HSV 2 IgG) no gt [facility] HospitalJjegthqGWFJZKDWYT3629-84-64 12:59:00 Test Item Value Reference Range Interpretation Comments T-Spot.TB (test code = T-Spot.TB) Negative [place] 971801-02-03 12:59:00 Test Item Value Reference Range Interpretation Comments T-Spot Pnl A Neg Ctrl Corrected (test 0 1 code = T-Spot Pnl A Neg Ctrl Corrected) [place] 971801-02-03 12:59:00 Test Item Value Reference Range Interpretation Comments T-Spot Pnl B Neg Ctrl Corrected (test 0 1 code = T-Spot Pnl B Neg Ctrl Corrected) [place] 971801-02-03 12:59:00 Test Item Value Reference Range Interpretation Comments T-Spot Neg Ctrl (test code = T-Spot Passed Neg Ctrl) [place] 971801-02-03 12:59:00 Test Item Value Reference Range Interpretation Comments T-Spot Pos Ctrl (test code = T-Spot Passed Pos Ctrl) [facility] HospitalQzxjmlmIHGNOUHIHL2830-01-39 12:59:00 Test Item Value Reference Range Interpretation Comments Treponemal Ab (test code Non-Reactive = Treponemal Ab) *NA*(04/04/20 6:59 AM) [place] 971801-02-03 12:59:00 Test Item Value Reference Range Interpretation Comments Varicella IgG (test code = Varicella 203.70 IgG) [place] 971801-02-03 12:59:00 Test Item Value Reference Range Interpretation Comments Mumps IgG (test code = Mumps IgG) no gt [place] 971801-02-03 12:59:00 Test Item Value Reference Range Interpretation Comments Rubella IgG (test code = Rubella IgG) no gt [place] 971801-02-03 12:59:00 Test Item Value Reference Range Interpretation Comments Rubeola IgG (test code = Rubeola IgG) 192.00 [place] [address]-02-03 12:59:00 Test Item Value Reference Range Interpretation Comments KAREN Ser Pattern A distinct monoclonal (test code = KAREN Ser band is present in the Pattern) IgM izabella with a corresponding band in the kappa light chain izabella. The polyclonal gamma globulin background is preserved in all lanes. [facility]manEbsrbweQUXXABZMQR1650-76-73 12:59:00 Test Item Value Reference Range Interpretation Comments KAREN Ser Interp The immunofixation (test code = KAREN electrophoresis results Ser Interp) (see pattern description) are consistent with monoclonal gammopathy of IgM-kappa isotype. Preservation of diffusely staining immunoreactivity indicates that the production of polyclonal immunoglobulins is not suppressed. Relevant medical information in the EMR was reviewed. I have personally reviewed the test results and concur with the resident's interpretation. CPT 26315-KW [facility] WorthVlocezcIKJALE4102-48-41 12:59:00 Test Item Value Reference Range Interpretation Comments Trig (test code = Trig) 70 [facility] WorthJqpyxbuNGEQOE7331-44-97 12:59:00 Test Item Value Reference Range Interpretation Comments Chol (test code = Chol) 102 [facility] WorthBtaklitRUYBON8574-78-12 12:59:00 Test Item Value Reference Range Interpretation Comments HDL (test code = HDL) 33 [facility] WorthPyysubcGOMOBJ7225-84-59 12:59:00 Test Item Value Reference Range Interpretation Comments CHD Risk (test code = CHD Risk) 3.09 1 4.00-7.30 [facility] WorthGgsrsedYBCOBN3134-99-65 12:59:00 Test Item Value Reference Range Interpretation Comments LDL (Calculated) (test code = LDL 55 (Calculated)) [facility]manCqpuceqTPFZIY1668-55-95 12:59:00 Test Item Value Reference Range Interpretation Comments VLDL (test code = VLDL) 14 1 [facility] WorthannPARASITOLOGY - [id number] 12:59:00 Test Item Value Reference Range Interpretation Comments Strongyloides Antibodies (test code POSITIVE = Strongyloides Antibodies) [facility]manPARATHYROID AGODHIG8974-73-11 12:59:00 Test Item Value Reference Range Interpretation Comments PTH Intact (test code = PTH Intact) 635.6 18.4-80.1 [facility] JGHPNEY0340-77-84 12:59:00 Test Item Value Reference Range Interpretation Comments Misc [facility] (test code = Misc SEE COMMENT [facility]) [facility] [place] [id number] 12:59:00 Test Item Value Reference Range Interpretation Comments Nicotine Lvl (test code = Nicotine Lvl) no gt [facility] [id number] 12:59:00 Test Item Value Reference Range Interpretation Comments Cotinine Lvl (test code = Cotinine Lvl) no gt [facility] [id number] 12:59:00 Test Item Value Reference Range Interpretation Comments Hgb A1C (test code = Hgb A1C) 6.0 [facility] [id number] 12:59:00 Test Item Value Reference Range Interpretation Comments PSA (test code = PSA) 1.5 [facility] - [id number] 12:59:00 Test Item Value Reference Range Interpretation Comments T cruzi (Chagas) Ab (test code = NONREACTIVE T cruzi ([place]agas) Ab) [facility] [id number] 12:59:00 Test Item Value Reference Range Interpretation Comments W Nile Ab IgG (test code = W Nile Ab no gt IgG) [facility] [id number] 12:59:00 Test Item Value Reference Range Interpretation Comments W Nile Ab IgM (test code = W Nile Ab no gt IgM) [facility] AND [id number] 14:05:00 Test Item Value Reference Range Interpretation Comments POC UA Color (test Yellow *NA*(04/27/19 code = POC UA Color) 8:05 AM) [facility] AND [id number] 14:05:00 Test Item Value Reference Range Interpretation Comments POC UA Turbidity (test Clear *NA*(04/27/19 code = POC UA Turbidity) 8:05 AM) [facility] AND [id number] 14:05:00 Test Item Value Reference Range Interpretation Comments POC UA SG (test code = POC UA SG) 1.015 1 [facility] AND [id number] 14:05:00 Test Item Value Reference Range Interpretation Comments POC UA pH (test code = POC UA pH) 6.0 1 5.0-8.0 [facility] AND [id number] 14:05:00 Test Item Value Reference Range Interpretation Comments POC UA Prot (test code = POC UA >=300 mg/dL Prot) [facility] AND [id number] 14:05:00 Test Item Value Reference Range Interpretation Comments POC UA Glu (test code = POC UA Negative mg/dL Glu) [facility] AND [id number] 14:05:00 Test Item Value Reference Range Interpretation Comments POC UA Ket (test code = POC UA Negative mg/dL Ket) [facility] [id number] 14:05:00 Test Item Value Reference Range Interpretation Comments POC UA Bili (test Negative *NA*(04/27/19 code = POC UA Bili) 8:05 AM) [facility] [id number] 14:05:00 Test Item Value Reference Range Interpretation Comments POC UA Bld (test code Trace *ABN*(04/27/19 = POC UA Bld) 8:05 AM) [facility] [id number] 14:05:00 Test Item Value Reference Range Interpretation Comments POC UA Uro (test code = POC UA Uro) 0.2 0.1-1.0 [facility] [id number] 14:05:00 Test Item Value Reference Range Interpretation Comments POC UA Nit (test code Negative *NA*(04/27/19 = POC UA Nit) 8:05 AM) [facility] [id number] 14:05:00 Test Item Value Reference Range Interpretation Comments POC UA LeukEst (test Negative *NA*(04/27/19 code = POC UA LeukEst) 8:05 AM) [facility] [id number] 14:05:00 Test Item Value Reference Range Interpretation Comments POC UA Color (test Yellow *NA*(04/27/19 code = POC UA Color) 8:05 AM) [facility] [id number] 14:05:00 Test Item Value Reference Range Interpretation Comments POC UA Turbidity (test Clear *NA*(04/27/19 code = POC UA Turbidity) 8:05 AM) [facility] [id number] 14:05:00 Test Item Value Reference Range Interpretation Comments POC UA SG (test code = POC UA SG) 1.015 1 [facility] [id number] 14:05:00 Test Item Value Reference Range Interpretation Comments POC UA pH (test code = POC UA pH) 6.0 1 5.0-8.0 [facility] [id number] 14:05:00 Test Item Value Reference Range Interpretation Comments POC UA Prot (test code = POC UA >=300 mg/dL Prot) [facility] [id number] 14:05:00 Test Item Value Reference Range Interpretation Comments POC UA Glu (test code = POC UA Negative mg/dL Glu) [facility] [id number] 14:05:00 Test Item Value Reference Range Interpretation Comments POC UA Ket (test code = POC UA Negative mg/dL Ket) [facility] AND [id number] 14:05:00 Test Item Value Reference Range Interpretation Comments POC UA Bili (test Negative *NA*(04/27/19 code = POC UA Bili) 8:05 AM) [facility] AND [id number] 14:05:00 Test Item Value Reference Range Interpretation Comments POC UA Bld (test code Trace *ABN*(04/27/19 = POC UA Bld) 8:05 AM) [facility] AND [id number] 14:05:00 Test Item Value Reference Range Interpretation Comments POC UA Uro (test code = POC UA Uro) 0.2 0.1-1.0 [facility] AND [id number] 14:05:00 Test Item Value Reference Range Interpretation Comments POC UA Nit (test code Negative *NA*(04/27/19 = POC UA Nit) 8:05 AM) [facility] AND [id number] 14:05:00 Test Item Value Reference Range Interpretation Comments POC UA LeukEst (test Negative *NA*(04/27/19 code = POC UA LeukEst) 8:05 AM) [facility] [id number] 13:10:00 Test Item Value Reference Range Interpretation Comments Ferritin Lvl (test code = Ferritin Lvl) 237 22-275 [facility]2020-01-15 13:10:00 Test Item Value Reference Range Interpretation Comments Iron (test code = Iron) 46 45-160 [facility] [id number] 13:10:00 Test Item Value Reference Range Interpretation Comments TIBC (test code = TIBC) 300 228-428 [facility] [id number] 13:10:00 Test Item Value Reference Range Interpretation Comments UIBC (test code = UIBC) 254 110-370 [facility]2020-01-15 13:10:00 Test Item Value Reference Range Interpretation Comments % Satur Fe (test code = % Satur Fe) 15 12-57 [facility]2020-01-15 13:10:00 Test Item Value Reference Range Interpretation Comments Glucose Lvl (test code = Glucose Lvl) 74 70-99 [facility]2020-01-15 13:10:00 Test Item Value Reference Range Interpretation Comments BUN (test code = BUN) 43 7-22 [facility]2020-01-15 13:10:00 Test Item Value Reference Range Interpretation Comments Creatinine Lvl (test code = Creatinine 4.40 0.50-1.40 Lvl) [facility]2020-01-15 13:10:00 Test Item Value Reference Range Interpretation Comments Sodium Lvl (test code = Sodium Lvl) 143 135-145 [facility]2020-01-15 13:10:00 Test Item Value Reference Range Interpretation Comments Potassium Lvl (test code = Potassium 3.9 3.5-5.1 Lvl) [facility]2020-01-15 13:10:00 Test Item Value Reference Range Interpretation Comments Chloride Lvl (test code = Chloride Lvl) 109 95-109 [facility]2020-01-15 13:10:00 Test Item Value Reference Range Interpretation Comments CO2 (test code = CO2) 26 24-32 [facility]2020-01-15 13:10:00 Test Item Value Reference Range Interpretation Comments Calcium Lvl (test code = Calcium Lvl) 8.5 8.5-10.5 [facility]2020-01-15 13:10:00 Test Item Value Reference Range Interpretation Comments Total Protein (test code = Total 7.5 6.4-8.4 Protein) [facility]2020-01-15 13:10:00 Test Item Value Reference Range Interpretation Comments Albumin Lvl (test code = Albumin Lvl) 3.4 3.5-5.0 [facility]2020-01-15 13:10:00 Test Item Value Reference Range Interpretation Comments ALT (test code = ALT) 16 See_Comment [Auto mated message] The system which ge nerated this result transmit nicko reference range : <=65. The reference range was not used to interpr et this result as adebayo l/abnormal. [place] [id number] 13:10:00 Test Item Value Reference Range Interpretation Comments AST (test code = AST) 11 See_Comment [Auto mated message] The system which ge nerated this result transmit nicko reference range : <=37. The reference range was not used to interpr et this result as adebayo l/abnormal. [facility]2020-01-15 13:10:00 Test Item Value Reference Range Interpretation Comments Alk Phos (test code = Alk Phos) 68 39-136 [facility] [id number] 13:10:00 Test Item Value Reference Range Interpretation Comments Bili Total (test code = Bili Total) 0.3 0.2-1.3 [facility]2020-01-15 13:10:00 Test Item Value Reference Range Interpretation Comments AGAP (test code = AGAP) 11.9 10.0-20.0 [facility]2020-01-15 13:10:00 Test Item Value Reference Range Interpretation Comments B/C Ratio (test code = B/C Ratio) 10 1 6-25 [facility] [id number] 13:10:00 Test Item Value Reference Range Interpretation Comments Globulin (test code = Globulin) 4.1 2.7-4.2 [facility] [id number] 13:10:00 Test Item Value Reference Range Interpretation Comments A/G Ratio (test code = A/G Ratio) 0.8 1 0.7-1.6 [facility]2020-01-15 13:10:00 Test Item Value Reference Range Interpretation Comments eGFR (test code = eGFR) 13 [facility] [id number] 13:10:00 Test Item Value Reference Range Interpretation Comments Magnesium Lvl (test code = Magnesium 1.2 1.8-2.4 Lvl) [facility]2020-01-15 13:10:00 Test Item Value Reference Range Interpretation Comments Phosphorus (test code = Phosphorus) 3.9 2.5-4.5 [facility]2020-01-15 13:10:00 Test Item Value Reference Range Interpretation Comments Uric Acid (test code = Uric Acid) 7.1 3.8-8.0 [facility] [id number] 13:10:00 Test Item Value Reference Range Interpretation Comments Vitamin D, 25-OH, Total (test code = 42.0 30.0-100.0 Vitamin D, 25-OH, Total) [facility] [id number] 13:10:00 Test Item Value Reference Range Interpretation Comments LDH (test code = LDH) 164 98-192 [facility] [id number] 13:10:00 Test Item Value Reference Range Interpretation Comments Creatinine Lvl (test code = Creatinine 4.39 0.50-1.40 Lvl) [facility] [id number] 13:10:00 Test Item Value Reference Range Interpretation Comments eGFR (test code = eGFR) 13 [facility] [id number] 13:10:00 Test Item Value Reference Range Interpretation Comments Phencyclidine Scr (test code = Negative Phencyclidine Scr) [facility] [id number] 13:10:00 Test Item Value Reference Range Interpretation Comments Kaitlin Scr (test code = Kaitlin Scr) Negative [facility] [id number] 13:10:00 Test Item Value Reference Range Interpretation Comments Cannab Scr (test code = Cannab Scr) Negative [facility] [id number] 13:10:00 Test Item Value Reference Range Interpretation Comments Methadone Scr (test code = Methadone Negative Scr) [facility] [id number] 13:10:00 Test Item Value Reference Range Interpretation Comments Cocaine Scr (test code = Cocaine Negative Scr) [facility] [id number] 13:10:00 Test Item Value Reference Range Interpretation Comments Benzodiaz Scr (test code = Benzodiaz Negative Scr) [facility] [id number] 13:10:00 Test Item Value Reference Range Interpretation Comments Amph Scr (test code = Amph Scr) Negative [facility] [id number] 13:10:00 Test Item Value Reference Range Interpretation Comments Opiate Scr (test code = Opiate Scr) Positive [facility] [id number] 13:10:00 Test Item Value Reference Range Interpretation Comments 6-Acetylmor Scr (test code = Negative 6-Acetylmor Scr) [facility] [id number] 13:10:00 Test Item Value Reference Range Interpretation Comments Opiate Qnt (test code = Opiate Qnt) Positive [facility]irgdVUJJEPRVTH3942-59-14 13:10:00 Test Item Value Reference Range Interpretation Comments PT (test code = PT) 12.8 s 12.0-14.7 [facility]AtwgxwzHEFTPURTQA8467-31-09 13:10:00 Test Item Value Reference Range Interpretation Comments INR (test code = INR) 0.96 1 0.85-1.17 [facility] SystemFlgonmbCQAYSDTIXZ2779-78-29 13:10:00 Test Item Value Reference Range Interpretation Comments PTT (test code = PTT) 33.5 s 22.9-35.8 [facility] SystemSjmptdfNWPMDIKBVK3224-59-01 13:10:00 Test Item Value Reference Range Interpretation Comments WBC (test code = WBC) 8.5 3.7-10.4 [facility] SystemVftbyvzRHBHKEZLBV3992-38-79 13:10:00 Test Item Value Reference Range Interpretation Comments RBC (test code = RBC) 4.31 4.70-6.10 [facility] SystemJdkysesGOCYUTCQXB9789-48-91 13:10:00 Test Item Value Reference Range Interpretation Comments Hgb (test code = Hgb) 12.6 14.0-18.0 [facility] SystemVbbloxhFURDXIAXYC1784-41-19 13:10:00 Test Item Value Reference Range Interpretation Comments Hct (test code = Hct) 39.5 42.0-54.0 [facility] SystemXsnnxpoACAYAUJYYN4887-77-67 13:10:00 Test Item Value Reference Range Interpretation Comments MCV (test code = MCV) 91.6 80.0-94.0 [facility] SystemXfrfvacHMENUXPWNC6934-80-56 13:10:00 Test Item Value Reference Range Interpretation Comments MCH (test code = MCH) 29.3 pg 27.0-31.0 [facility] SystemLrbaappRFUGJYZFVO9550-93-26 13:10:00 Test Item Value Reference Range Interpretation Comments MCHC (test code = MCHC) 32.0 32.0-36.0 [facility] SystemHlmktltSYLFRSABEG7574-31-81 13:10:00 Test Item Value Reference Range Interpretation Comments RDW (test code = RDW) 15.5 11.5-14.5 [facility] SystemAbvhlqnCZKHFYWGMG5226-31-00 13:10:00 Test Item Value Reference Range Interpretation Comments Platelet (test code = Platelet) 215 133-450 [facility] SystemPzjrehhSWSRMUXHVG4572-17-12 13:10:00 Test Item Value Reference Range Interpretation Comments MPV (test code = MPV) 9.0 7.4-10.4 [facility] SystemKghjruaSMTGELKZQD3070-03-76 13:10:00 Test Item Value Reference Range Interpretation Comments AT III Func (test code = AT III Func) 118 77-140 [facility] SystemItpjqcyPOZZELAFBS5894-79-12 13:10:00 Test Item Value Reference Range Interpretation Comments F5 Leiden PCR (test Negative (03/16/19 7:10 code = F5 Leiden PCR) AM) [facility] SystemWawiljzMLTGEKTEMY3975-96-43 13:10:00 Test Item Value Reference Range Interpretation Comments F5 Leiden Intrp (test code = F5 See note Leiden Intrp) [facility] SystemPihrgjqVRKNARQZFT3737-98-40 13:10:00 Test Item Value Reference Range Interpretation Comments dRVV Ratio (test code = dRVV Ratio) 1.26 1 [facility] SystemExplrnvYGOOFYZVPY1020-58-74 13:10:00 Test Item Value Reference Range Interpretation Comments Plt Neut Test (test code = Plt Neut Negative Test) [facility] SystemNwqhbsuQVEBUEWZKA5081-84-88 13:10:00 Test Item Value Reference Range Interpretation Comments Hex Phos N (test code Negative (03/16/19 7:10 = Hex Phos N) AM) [facility] SystemTucazqtOIOBUKGAXW4706-75-09 13:10:00 Test Item Value Reference Range Interpretation Comments Lup Interp (test Negative for lupus code = Lup Interp) anticoagulant (prolonged dRVVT, negative hexagonal phospholipid neutralization, and negative Platelet Neutralization procedure). Thrombin Time is normal (15.5 sec) which rules out heparin as interference substance. CPT: 90451 [facility] SystemUdrqtjrIWZYXMAARJ9171-43-53 13:10:00 Test Item Value Reference Range Interpretation Comments F2 Mutation PCR (test Negative (03/16/19 7:10 code = F2 Mutation PCR) AM) [facility] SystemJsczravHOWJDEOCJR6770-58-82 13:10:00 Test Item Value Reference Range Interpretation Comments F2 Mut Interp (test code = F2 Mut See note Interp) [facility] SystemEgtvmqcPAITMGRZBO9969-90-35 13:10:00 Test Item Value Reference Range Interpretation Comments Protein C Func (test code = Protein C 118 72-147 Func) [facility] SystemXwakeanRZVQPZGTDM3038-11-72 13:10:00 Test Item Value Reference Range Interpretation Comments Protein S Func (test code = Protein S 113 54-137 Func) [place] [id number] 13:10:00 Test Item Value Reference Range Interpretation Comments Segs (test code = Segs) 58.7 45.0-75.0 [facility] SystemFhzodkbROOOENQVNC4109-98-66 13:10:00 Test Item Value Reference Range Interpretation Comments Lymphocytes (test code = Lymphocytes) 30.5 20.0-40.0 [facility] SystemZbqfydqMJSZJQPEFC8544-36-81 13:10:00 Test Item Value Reference Range Interpretation Comments Monocytes (test code = Monocytes) 8.0 2.0-12.0 [facility] SystemQvfheobYDHAWUTXSM0394-30-94 13:10:00 Test Item Value Reference Range Interpretation Comments Eosinophils (test code = 2.2 See_Comment [A utomated message] The Eosinophils) system which ge nerated this result tra nsmitted reference range : <=4.0. The reference r carlos was not used to int erpret this result as normal/abnormal . [facility] SystemBzgqwkeMHMDSVLCPO3236-85-52 13:10:00 Test Item Value Reference Range Interpretation Comments Basophils (test code = 0.6 See_Comment [Aut omated message] The Basophils) system which ge nerated this result tra nsmitted reference range : <=1.0. The reference r carlos was not used to int erpret this result as normal/abnormal . [facility] SystemEqzeybmYSIVWHKBSE8584-90-59 13:10:00 Test Item Value Reference Range Interpretation Comments Neutrophils # (test code = Neutrophils 5.0 1.5-8.1 #) [facility] SystemAjtuekwECBHUWAWQR0204-26-30 13:10:00 Test Item Value Reference Range Interpretation Comments Lymphocytes # (test code = Lymphocytes 2.6 1.0-5.5 #) [place] [id number] 13:10:00 Test Item Value Reference Range Interpretation Comments Monocytes # (test code 0.7 See_Comment [Aut omated message] The = Monocytes #) system which generated this result tra nsmitted reference range : <=0.8. The reference r carlos was not used to int erpret this result as normal/abnormal . [facility] SystemHuvfzolTRUQARZHLY3087-19-56 13:10:00 Test Item Value Reference Range Interpretation Comments Eosinophils # (test code 0.2 See_Comment [A utomated message] The = Eosinophils #) system whic h generated this result tra nsmitted reference range : <=0.5. The reference r carlos was not used to int erpret this result as normal/abnormal . [facility]WxlvdjdVPLUWPKDZT6430-07-[facility] 13:10:00 Test Item Value Reference Range Interpretation Comments Cystatin C (test code = Cystatin C) 3.70 0.62-1.16 [facility] HospitalRiwdldhIGFAWQHCYN5083-84-47 13:10:00 Test Item Value Reference Range Interpretation Comments Cardiolipin IgA (test code = no gt Cardiolipin IgA) [facility] HospitalUhdlzqoNEFIFEDHQD4777-34-20 13:10:00 Test Item Value Reference Range Interpretation Comments Cardiolipin IgG (test code = no gt Cardiolipin IgG) [facility] HospitalHwuqhnrIAYUQEKHOK7399-33-07 13:10:00 Test Item Value Reference Range Interpretation Comments Cardiolipin IgM (test code = 0.8 Cardiolipin IgM) [facility] HospitalQrfyfmwWOTRBMSRPD9856-33-51 13:10:00 Test Item Value Reference Range Interpretation Comments Homocyst Tot (test code = Homocyst Tot) 16.5 3.7-13.9 [facility] HospitalMnuqjotVWQKYOZGBV9045-37-76 13:10:00 Test Item Value Reference Range Interpretation Comments Albumin % (test code = Albumin %) 51.0 55.8-66.1 [facility] HospitalObrysudQIDSOYFBXV4855-38-46 13:10:00 Test Item Value Reference Range Interpretation Comments Alpha 1 % (test code = Alpha 1 %) 8.6 2.8-4.9 [facility] HospitalQmjcnpjVGEEGVDAJD4901-75-61 13:10:00 Test Item Value Reference Range Interpretation Comments Alpha 2 % (test code = Alpha 2 %) 14.6 7.0-11.9 [facility] HospitalDmbbvqyIEPGGVRFVG7049-78-59 13:10:00 Test Item Value Reference Range Interpretation Comments Beta % (test code = Beta %) 12.4 7.8-13.7 [facility] HospitalWfomwalMBVZKCBOFG0189-87-32 13:10:00 Test Item Value Reference Range Interpretation Comments Gamma % (test code = Gamma %) 13.4 11.1-18.7 [facility] HospitalWqrozleNFXFDXNCGB2139-15-01 13:10:00 Test Item Value Reference Range Interpretation Comments Albumin (SPE) (test code = Albumin 3.83 3.57-5.55 (SPE)) [facility]bjnhidGBWGZYYFYN2815-80-79 13:10:00 Test Item Value Reference Range Interpretation Comments Alpha 1 Glob (test code = Alpha 1 Glob) 0.65 0.18-0.41 [facility]AqjshjoAYYEXCHZKO7237-79-25 13:10:00 Test Item Value Reference Range Interpretation Comments Alpha 2 Glob (test code = Alpha 2 Glob) 1.10 0.45-1.00 [facility]manIyftagxZXFJMQQHOT3978-91-45 13:10:00 Test Item Value Reference Range Interpretation Comments Beta Glob (test code = Beta Glob) 0.93 0.50-1.15 [facility]manTroudhrUIHLGMPMRH4033-99-40 13:10:00 Test Item Value Reference Range Interpretation Comments Gamma Glob (test code = Gamma Glob) 1.01 0.71-1.57 [facility]manFdkjgcxQGZGRREUCT9544-18-65 13:10:00 Test Item Value Reference Range Interpretation Comments Tot Prot (SPE) (test code = Tot Prot 7.5 6.4-8.4 (SPE)) [facility] HospitalTbsplsbAVPKWYUKBK0773-43-92 13:10:00 Test Item Value Reference Range Interpretation Comments SPE Interp (test Serum protein code = SPE Interp) electrophoresis demonstrates a small peak (0.30 g/dL) in the gamma globulin distribution curve. There is also a elevation of alpha-1 and alpha-2 globulin fractions. Total protein is within the reference range. Concurrent serum immunofixation demonstrates an IgM-kappa monoclonal immunoglobulin (see separate report). The electronic medical record has been reviewed for relevant clinical information. I have personally reviewed the test results and concur with the resident's interpretation. CPT 10578-IQ [facility]manOzihzeiMYGKTCAWMK3020-02-25 13:10:00 Test Item Value Reference Range Interpretation Comments Ronda Free Light Chains (test code = 110.41 3.30-19.40 Ronda Free Light Chains) [facility]manJehnvvkSCGPWHGMKL1985-97-05 13:10:00 Test Item Value Reference Range Interpretation Comments Lambda Free Light Chains (test code = 40.85 5.70-26.30 Lambda Free Light Chains) [facility]manZwxnaeeCUYGCZPVYT4432-43-13 13:10:00 Test Item Value Reference Range Interpretation Comments Ronda/Lambda Free Light Chains Ratio 2.70 0.26-1.65 (test code = Ronda/Lambda Free Light Chains Ratio) [facility] HospitalWzzkhidYFBXWCCFMP3953-84-33 13:10:00 Test Item Value Reference Range Interpretation Comments CMV IgG (test code = Reactive *ABN*(03/16/19 CMV IgG) 7:10 AM) [facility] HospitalRclsbjvWBQIAKUVYA2367-18-19 13:10:00 Test Item Value Reference Range Interpretation Comments EBV VCA IgG (test code = EBV VCA IgG) no gt [facility] HospitalWfqyfxrVLKCIZOUDS8326-85-83 13:10:00 Test Item Value Reference Range Interpretation Comments HIV Ag/Ab 4th Gen Negative *NA*(03/16/19 (test code = HIV 7:10 AM) Ag/Ab 4th Gen) [facility] HospitalVmhcgddBVRVFETXMR1555-69-39 13:10:00 Test Item Value Reference Range Interpretation Comments Hep A Tot (test code Positive *NA*(03/16/19 = Hep A Tot) 7:10 AM) [facility] HospitalRjtpebbSZWQDYPURW5232-87-92 13:10:00 Test Item Value Reference Range Interpretation Comments Hep Bs Ab (test code = Hep Bs Ab) no gt [facility] HospitalIkllopoMLZZCUENNF0953-77-67 13:10:00 Test Item Value Reference Range Interpretation Comments Hep B Core Ab (test Negative *NA*(03/16/19 code = Hep B Core Ab) 7:10 AM) [facility] HospitalYhztwnqBEGFAFEZWN6858-86-55 13:10:00 Test Item Value Reference Range Interpretation Comments Hep Bs Ag (test code Negative *NA*(03/16/19 = Hep Bs Ag) 7:10 AM) [facility] HospitalDvqvhsxWTIQSYFSNM2498-36-52 13:10:00 Test Item Value Reference Range Interpretation Comments Hep C Ab (test code = Negative *NA*(03/16/19 Hep C Ab) 7:10 AM) [facility] HospitalJaivyeeSTYGPYJANX4457-36-58 13:10:00 Test Item Value Reference Range Interpretation Comments HSV 2 IgG (test code = HSV 2 IgG) no [facility]HE[facility]LL8265[facility] 13:10:00 Test Item Value Reference Range Interpretation Comments HSV 1 IgG (test code = HSV 1 IgG) no [facility]2020-01-15 13:10:00 Test Item Value Reference Range Interpretation Comments T-Spot.TB (test code Negative (03/16/19 7:10 = T-Spot.TB) AM) [facility]lp[facility]vHHQLUREZXB7932-79-58 13:10:00 Test Item Value Reference Range Interpretation Comments Treponemal Ab (test code Non-Reactive = Treponemal Ab) *NA*(03/16/19 7:10 AM) [facility]YjnlxzgKUZUCDDSCC4614-79-38 13:10:00 Test Item Value Reference Range Interpretation Comments Varicella IgG (test code = Varicella no gt IgG) [facility]manHvkgfitFXLTEJEDSB3171-49-75 13:10:00 Test Item Value Reference Range Interpretation Comments Mumps IgG (test code = Mumps IgG) 5.1 [facility] WorthTmwxbnoTAYRVWOMHO4991-34-04 13:10:00 Test Item Value Reference Range Interpretation Comments Rubella IgG (test code = Rubella IgG) no gt [facility] WorthWsljoobWKUKKYZOXD9890-01-94 13:10:00 Test Item Value Reference Range Interpretation Comments Rubeola IgG (test code = Rubeola IgG) 2.0 [facility]JdfctcuYDHGDXBJNO8379-37-86 13:10:00 Test Item Value Reference Range Interpretation Comments KAREN Ser Pattern A distinct monoclonal (test code = KAREN Ser band is present in the Pattern) IgM izabella with a corresponding faint band in the kappa light chain izabella. The polyclonal gamma globulin background is preserved in all lanes. [facility]manGcwsmwiXHKVWIJKWS6614-05-67 13:10:00 Test Item Value Reference Range Interpretation Comments KAREN Ser Interp The immunofixation (test code = KAREN electrophoresis results Ser Interp) (see pattern description) are consistent with monoclonal gammopathy of IgM-kappa isotype. Preservation of diffusely staining immunoreactivity indicates that the production of polyclonal immunoglobulins is not suppressed. Relevant medical information in the EMR was reviewed. I have personally reviewed the test results and concur with the resident's interpretation. CPT 66591-FE [facility] WorthCncmidqXPFHXO8661-19-84 13:10:00 Test Item Value Reference Range Interpretation Comments Trig (test code = Trig) 138 [facility] WorthSntunwcGISNPX0124-40-05 13:10:00 Test Item Value Reference Range Interpretation Comments Chol (test code = Chol) 183 [facility] WorthFngditoSYPTKT9214-75-46 13:10:00 Test Item Value Reference Range Interpretation Comments HDL (test code = HDL) 40 [facility] WorthWhhjuggILHZWD4572-57-25 13:10:00 Test Item Value Reference Range Interpretation Comments CHD Risk (test code = CHD Risk) 4.58 1 4.00-7.30 [facility] WorthTxtjqrqCGHFNG5384-04-87 13:10:00 Test Item Value Reference Range Interpretation Comments LDL (Calculated) (test code = LDL 115 (Calculated)) [facility] WorthSsxudrzDQCJYV8225-72-74 13:10:00 Test Item Value Reference Range Interpretation Comments VLDL (test code = VLDL) 28 1 [facility] - [id number] 13:10:00 Test Item Value Reference Range Interpretation Comments Strongyloides Antibodies (test code Negative = Strongyloides Antibodies) [facility]manPARATHYROID [id number] 13:10:00 Test Item Value Reference Range Interpretation Comments PTH Intact (test code = PTH Intact) 579.6 18.4-80.1 [facility]SPE[facility] [id number] 13:10:00 Test Item Value Reference Range Interpretation Comments Nicotine Lvl (test code = None Detected Nicotine Lvl) [facility] [id number] 13:10:00 Test Item Value Reference Range Interpretation Comments Cotinine Lvl (test code = None Detected Cotinine Lvl) [facility] [id number] 13:10:00 Test Item Value Reference Range Interpretation Comments Hgb A1C (test code = Hgb A1C) 6.1 [facility] [id number] 13:10:00 Test Item Value Reference Range Interpretation Comments PSA (test code = PSA) 1.34 See_Comment [Auto mated message] The system which ge nerated this result transmit nicko reference range : <=4.00. The reference r carlos was not used to interpr et this result as adebayo l/abnormal. [facility] AND [id number] 13:10:00 Test Item Value Reference Range Interpretation Comments UA WBC (test code = 1 See_Comment [Automa nicko message] The UA WBC) system which ge nerated this result transmit nicko reference range : <=5. The reference range was not used to interpr et this result as adebayo l/abnormal. [facility] AND [id number] 13:10:00 Test Item Value Reference Range Interpretation Comments UA RBC (test code = 1 See_Comment [Automa nicko message] The UA RBC) system which ge nerated this result transmit nicko reference range : <=2. The reference range was not used to interpr et this result as adebayo l/abnormal. [facility] AND [id number] 13:10:00 Test Item Value Reference Range Interpretation Comments UA Color (test code = Yellow *NA*(03/16/19 UA Color) 7:10 AM) [facility] AND [id number] 13:10:00 Test Item Value Reference Range Interpretation Comments UA Turbidity (test code = Clear (03/16/19 7:10 UA Turbidity) AM) [facility] AND [id number] 13:10:00 Test Item Value Reference Range Interpretation Comments UA Spec Grav (test code = UA Spec 1.010 1 Grav) [facility] AND [id number] 13:10:00 Test Item Value Reference Range Interpretation Comments UA pH (test code = UA pH) 6.0 1 5.0-8.0 [facility] AND [id number] 13:10:00 Test Item Value Reference Range Interpretation Comments UA Protein (test code = UA Protein) 100 mg/dL [facility] AND [id number] 13:10:00 Test Item Value Reference Range Interpretation Comments UA Glucose (test code = UA Glucose) 100 mg/dL [facility] AND [id number] 13:10:00 Test Item Value Reference Range Interpretation Comments UA Ketones (test code Negative *NA*(03/16/19 = UA Ketones) 7:10 AM) [facility] AND [id number] 13:10:00 Test Item Value Reference Range Interpretation Comments UA Bili (test code = Negative *NA*(03/16/19 UA Bili) 7:10 AM) [facility] AND [id number] 13:10:00 Test Item Value Reference Range Interpretation Comments UA Blood (test code = Trace *ABN*(03/16/19 UA Blood) 7:10 AM) [facility] AND [id number] 13:10:00 Test Item Value Reference Range Interpretation Comments UA Urobilinogen (test code = UA 0.2 0.1-1.0 Urobilinogen) [facility] AND [id number] 13:10:00 Test Item Value Reference Range Interpretation Comments UA Nitrite (test code Negative (03/16/19 7:10 = [facility]A Nitrite) AM) [facility] [id number] 13:10:00 Test Item Value Reference Range Interpretation Comments UA Leuk Est (test Negative (03/16/19 7:10 code = UA Leuk Est) AM) [facility] [id number] 13:10:00 Test Item Value Reference Range Interpretation Comments UA Sq Epi (test code = None Seen (03/16/19 7:10 UA Sq Epi) AM) [facility] [id number] 13:10:00 Test Item Value Reference Range Interpretation Comments U Creatinine (test code = U Creatinine) 74.20 [facility] [id number] 13:10:00 Test Item Value Reference Range Interpretation Comments U Alb (test code = U Alb) 892.0 [facility] [id number] 13:10:00 Test Item Value Reference Range Interpretation Comments U Alb/Crea (test code = U Alb/Crea) 1202.2 [facility] [id number] 13:10:00 Test Item Value Reference Range Interpretation Comments U Creatinine (test code = U Creatinine) 74.20 [facility] [id number] 13:10:00 Test Item Value Reference Range Interpretation Comments U Protein (test code = U Protein) 149.5 [facility] [id number] 13:10:00 Test Item Value Reference Range Interpretation Comments U Prot/Creat (test code = U 2.01 1 Prot/Creat) [facility] [id number] 13:10:00 Test Item Value Reference Range Interpretation Comments U Creatinine (test code = U Creatinine) 74.20 [facility] [id number] 13:10:00 Test Item Value Reference Range Interpretation Comments U Alb (test code = U Alb) 892.0 [facility] [id number] 13:10:00 Test Item Value Reference Range Interpretation Comments U Alb/Crea (test code = U Alb/Crea) 1202.2 [facility] HermannVIRAL - [id number] 13:10:00 Test Item Value Reference Range Interpretation Comments T cruzi (Chagas) Ab (test code = Non Reactive T cruzi (Chagas) Ab) [facility]2020-01-15 13:10:00 Test Item Value Reference Range Interpretation Comments W Nile Ab IgG (test code = W Nile Ab Negative IgG) [facility]2020-01-15 13:10:00 Test Item Value Reference Range Interpretation Comments W Nile Ab IgM (test code = W Nile Ab Negative IgM) [facility]2020-01-15 13:10:00 Test Item Value Reference Range Interpretation Comments Ferritin Lvl (test code = Ferritin Lvl) 237 22-275 [facility]2020-01-15 13:10:00 Test Item Value Reference Range Interpretation Comments Iron (test code = Iron) 46 45-160 [facility]2020-01-15 13:10:00 Test Item Value Reference Range Interpretation Comments TIBC (test code = TIBC) 300 228-428 [facility]2020-01-15 13:10:00 Test Item Value Reference Range Interpretation Comments UIBC (test code = UIBC) 254 110-370 [facility]2020-01-15 13:10:00 Test Item Value Reference Range Interpretation Comments % Satur Fe (test code = % Satur Fe) 15 12-57 [facility]2020-01-15 13:10:00 Test Item Value Reference Range Interpretation Comments Glucose Lvl (test code = Glucose Lvl) 74 70-99 [facility]2020-01-15 13:10:00 Test Item Value Reference Range Interpretation Comments BUN (test code = BUN) 43 7-22 [facility]2020-01-15 13:10:00 Test Item Value Reference Range Interpretation Comments Creatinine Lvl (test code = Creatinine 4.40 0.50-1.40 Lvl) [facility]2020-01-15 13:10:00 Test Item Value Reference Range Interpretation Comments Sodium Lvl (test code = Sodium Lvl) 143 135-145 [facility]2020-01-15 13:10:00 Test Item Value Reference Range Interpretation Comments Potassium Lvl (test code = Potassium 3.9 3.5-5.1 Lvl) [facility]2020-01-15 13:10:00 Test Item Value Reference Range Interpretation Comments Chloride Lvl (test code = Chloride Lvl) 109 95-109 [place] [id number] 13:10:00 Test Item Value Reference Range Interpretation Comments CO2 (test code = CO2) 26 24-32 [facility] [id number] 13:10:00 Test Item Value Reference Range Interpretation Comments Calcium Lvl (test code = Calcium Lvl) 8.5 8.5-10.5 [facility] WorthTinteoATRI[facility] [id number] 13:10:00 Test Item Value Reference Range Interpretation Comments Total Protein (test code = Total 7.5 6.4-8.4 Protein) [facility] WorthTinteoATRI[facility] [id number] 13:10:00 Test Item Value Reference Range Interpretation Comments Albumin Lvl (test code = Albumin Lvl) 3.4 3.5-5.0 [facility] [id number] 13:10:00 Test Item Value Reference Range Interpretation Comments ALT (test code = ALT) 16 See_Comment [Auto mated message] The system which ge nerated this result transmit nicko reference range : <=65. The reference range was not used to interpr et this result as adebayo l/abnormal. [facility] [id number] 13:10:00 Test Item Value Reference Range Interpretation Comments AST (test code = AST) 11 See_Comment [Auto mated message] The system which ge nerated this result transmit nicko reference range : <=37. The reference range was not used to interpr et this result as adebayo l/abnormal. [facility] [id number] 13:10:00 Test Item Value Reference Range Interpretation Comments Alk Phos (test code = Alk Phos) 68 39-136 [facility] [id number] 13:10:00 Test Item Value Reference Range Interpretation Comments Bili Total (test code = Bili Total) 0.3 0.2-1.3 [facility] [id number] 13:10:00 Test Item Value Reference Range Interpretation Comments AGAP (test code = AGAP) 11.9 10.0-20.0 [facility] [id number] 13:10:00 Test Item Value Reference Range Interpretation Comments B/C Ratio (test code = B/C Ratio) 10 1 6-25 [facility] [id number] 13:10:00 Test Item Value Reference Range Interpretation Comments Globulin (test code = Globulin) 4.1 2.7-4.2 [facility] [id number] 13:10:00 Test Item Value Reference Range Interpretation Comments A/G Ratio (test code = A/G Ratio) 0.8 1 0.7-1.6 [facility] [id number] 13:10:00 Test Item Value Reference Range Interpretation Comments eGFR (test code = eGFR) 13 [facility] [id number] 13:10:00 Test Item Value Reference Range Interpretation Comments Magnesium Lvl (test code = Magnesium 1.2 1.8-2.4 Lvl) [facility] [id number] 13:10:00 Test Item Value Reference Range Interpretation Comments Phosphorus (test code = Phosphorus) 3.9 2.5-4.5 [facility] [id number] 13:10:00 Test Item Value Reference Range Interpretation Comments Uric Acid (test code = Uric Acid) 7.1 3.8-8.0 [facility] [id number] 13:10:00 Test Item Value Reference Range Interpretation Comments Vitamin D, 25-OH, Total (test code = 42.0 30.0-100.0 Vitamin D, 25-OH, Total) [facility] [id number] 13:10:00 Test Item Value Reference Range Interpretation Comments LDH (test code = LDH) 164 98-192 [facility] [id number] 13:10:00 Test Item Value Reference Range Interpretation Comments Creatinine Lvl (test code = Creatinine 4.39 0.50-1.40 Lvl) [facility] [id number] 13:10:00 Test Item Value Reference Range Interpretation Comments eGFR (test code = eGFR) 13 [facility] WorthBeautified [id number] 13:10:00 Test Item Value Reference Range Interpretation Comments Phencyclidine Scr (test code = Negative Phencyclidine Scr) [facility] WorthTinteoDRUG [id number] 13:10:00 Test Item Value Reference Range Interpretation Comments Kaitlin Scr (test code = Kaitlin Scr) Negative [facility] WorthTinteoDRUG [id number] 13:10:00 Test Item Value Reference Range Interpretation Comments Cannab Scr (test code = Cannab Scr) Negative [facility] WorthTinteoDRUG [id number] 13:10:00 Test Item Value Reference Range Interpretation Comments Methadone Scr (test code = Methadone Negative Scr) [facility] [id number] 13:10:00 Test Item Value Reference Range Interpretation Comments Cocaine Scr (test code = Cocaine Negative Scr) [facility] [id number] 13:10:00 Test Item Value Reference Range Interpretation Comments Benzodiaz Scr (test code = Benzodiaz Negative Scr) [facility] [id number] 13:10:00 Test Item Value Reference Range Interpretation Comments Amph Scr (test code = Amph Scr) Negative [facility] [id number] 13:10:00 Test Item Value Reference Range Interpretation Comments Opiate Scr (test code = Opiate Scr) Positive [facility] [id number] 13:10:00 Test Item Value Reference Range Interpretation Comments 6-Acetylmor Scr (test code = Negative 6-Acetylmor Scr) [facility] [id number] 13:10:00 Test Item Value Reference Range Interpretation Comments Opiate Qnt (test code = Opiate Qnt) Positive [facility]manTxdwijeMGFKZFLMFO0064-34-27 13:10:00 Test Item Value Reference Range Interpretation Comments PT (test code = PT) 12.8 s 12.0-14.7 [facility]JfyzqqnBHUSNTCROP6535-39-14 13:10:00 Test Item Value Reference Range Interpretation Comments INR (test code = INR) 0.96 1 0.85-1.17 [facility] SystemJfbpvbqSGDXEKKRZQ1276-52-76 13:10:00 Test Item Value Reference Range Interpretation Comments PTT (test code = PTT) 33.5 s 22.9-35.8 [facility]WrmfdptFXTFZMXDQH9648-30-32 13:10:00 Test Item Value Reference Range Interpretation Comments WBC (test code = WBC) 8.5 3.7-10.4 [id number] 13:10:00 Test Item Value Reference Range Interpretation Comments RBC (test code = RBC) 4.31 4.70-6.10 [facility] PointeRyhvpxqGHKNZUUIXO7658-00-75 13:10:00 Test Item Value Reference Range Interpretation Comments Hgb (test code = Hgb) 12.6 14.0-18.0 [facility] PointeAjnrkykWODHTJWNQU1722-74-83 13:10:00 Test Item Value Reference Range Interpretation Comments Hct (test code = Hct) 39.5 42.0-54.0 [facility] SystemXdmouyoSMWOVVVQVG6937-04-71 13:10:00 Test Item Value Reference Range Interpretation Comments MCV (test code = MCV) 91.6 80.0-94.0 [facility] SystemNgqewfcARIUTFCJXF9111-10-17 13:10:00 Test Item Value Reference Range Interpretation Comments MCH (test code = MCH) 29.3 pg 27.0-31.0 [facility] SystemLocibawIUFKENGXIJ5105-31-21 13:10:00 Test Item Value Reference Range Interpretation Comments MCHC (test code = MCHC) 32.0 32.0-36.0 [facility] SystemVhbwhqnZHEJGWKUZO2795-78-43 13:10:00 Test Item Value Reference Range Interpretation Comments RDW (test code = RDW) 15.5 11.5-14.5 [facility] SystemZjlxbufLCJQHBAGMF3155-54-46 13:10:00 Test Item Value Reference Range Interpretation Comments Platelet (test code = Platelet) 215 133-450 [facility] SystemJsngwxiYURZWMZZYG1168-91-92 13:10:00 Test Item Value Reference Range Interpretation Comments MPV (test code = MPV) 9.0 7.4-10.4 [facility] SystemPssoudmMVIVQLYRED1526-75-47 13:10:00 Test Item Value Reference Range Interpretation Comments AT III Func (test code = AT III Func) 118 77-140 [facility] SystemYqcqvqqJUEMMMEYOR4669-65-63 13:10:00 Test Item Value Reference Range Interpretation Comments F5 Leiden PCR (test Negative (03/16/19 7:10 code = F5 Leiden PCR) AM) [facility] SystemAkuoiqdVCKQZAFPHX0959-02-55 13:10:00 Test Item Value Reference Range Interpretation Comments F5 Leiden Intrp (test code = F5 See note Leiden Intrp) [facility] SystemPpskdebFPDJDIZXJG5271-03-10 13:10:00 Test Item Value Reference Range Interpretation Comments dRVV Ratio (test code = dRVV Ratio) 1.26 1 [facility] SystemXzbmixhVIQSQEBBPZ7261-52-00 13:10:00 Test Item Value Reference Range Interpretation Comments Plt Neut Test (test code = Plt Neut Negative Test) [facility] SystemHivnnbtZIHQZYFOMO9563-92-31 13:10:00 Test Item Value Reference Range Interpretation Comments Hex Phos N (test code Negative (03/16/19 7:10 = Hex Phos N) AM) [facility] SystemKusccqbPBHTNWWIUO9826-53-65 13:10:00 Test Item Value Reference Range Interpretation Comments Lup Interp (test Negative for lupus code = Lup Interp) anticoagulant (prolonged dRVVT, negative hexagonal phospholipid neutralization, and negative Platelet Neutralization procedure). Thrombin Time is normal (15.5 sec) which rules out heparin as interference substance. CPT: 13659 [facility] S[id number] 13:10:00 Test Item Value Reference Range Interpretation Comments F2 Mutation PCR (test Negative (03/16/19 7:10 code = F2 Mutation PCR) AM) [place] [id number] 13:10:00 Test Item Value Reference Range Interpretation Comments F2 Mut Interp (test code = F2 Mut See note Interp) [facility] SystemTjfvsqfFHRDDREBGP3273-76-70 13:10:00 Test Item Value Reference Range Interpretation Comments Protein C Func (test code = Protein C 118 72-147 Func) [facility] SystemEkqffalSCXCSRLAHZ4449-38-27 13:10:00 Test Item Value Reference Range Interpretation Comments Protein S Func (test code = Protein S 113 54-137 Func) [place] 255660-01-15 13:10:00 Test Item Value Reference Range Interpretation Comments Segs (test code = Segs) 58.7 45.0-75.0 [facility] SystemWafsodgOOLZSVSANW8848-66-73 13:10:00 Test Item Value Reference Range Interpretation Comments Lymphocytes (test code = Lymphocytes) 30.5 20.0-40.0 [place] [id number] 13:10:00 Test Item Value Reference Range Interpretation Comments Monocytes (test code = Monocytes) 8.0 2.0-12.0 [place] [address]-01-15 13:10:00 Test Item Value Reference Range Interpretation Comments Eosinophils (test code = 2.2 See_Comment [A utomated message] The Eosinophils) system which ge nerated this result tra nsmitted reference range : <=4.0. The reference r carlos was not used to int erpret this result as normal/abnormal . [place] 255660-01-15 13:10:00 Test Item Value Reference Range Interpretation Comments Basophils (test code = 0.6 See_Comment [Aut omated message] The Basophils) system which ge nerated this result tra nsmitted reference range : <=1.0. The reference r carlos was not used to int erpret this result as normal/abnormal . [facility] SystemMapudptZEXIUHSWCB6040-76-39 13:10:00 Test Item Value Reference Range Interpretation Comments Neutrophils # (test code = Neutrophils 5.0 1.5-8.1 #) [facility] SystemSxnvleuXSEVGXUGWG7696-91-14 13:10:00 Test Item Value Reference Range Interpretation Comments Lymphocytes # (test code = Lymphocytes 2.6 1.0-5.5 #) [facility] SystemZkpdjltQVZVTZCJVQ4409-73-44 13:10:00 Test Item Value Reference Range Interpretation Comments Monocytes # (test code 0.7 See_Comment [Aut omated message] The = Monocytes #) system which generated this result tra nsmitted reference range : <=0.8. The reference r carlos was not used to int erpret this result as normal/abnormal . [facility] SystemOnonwfvNREQZGILRZ8593-31-37 13:10:00 Test Item Value Reference Range Interpretation Comments Eosinophils # (test code 0.2 See_Comment [A utomated message] The = Eosinophils #) system whic h generated this result tra nsmitted reference range : <=0.5. The reference r carlos was not used to int erpret this result as normal/abnormal . [facility]LbsfqhwTZXRFKTUAD0210-62-01 13:10:00 Test Item Value Reference Range Interpretation Comments Cystatin C (test code = Cystatin C) 3.70 0.62-1.16 [facility] HospitalNwkaizgIXFGBUBPDU6681-02-96 13:10:00 Test Item Value Reference Range Interpretation Comments Cardiolipin IgA (test code = no gt Cardiolipin IgA) [place] [id number] 13:10:00 Test Item Value Reference Range Interpretation Comments Cardiolipin IgG (test code = no gt Cardiolipin IgG) [place] 971800-01-15 13:10:00 Test Item Value Reference Range Interpretation Comments Cardiolipin IgM (test code = 0.8 Cardiolipin IgM) [place] [address]-01-15 13:10:00 Test Item Value Reference Range Interpretation Comments Homocyst Tot (test code = Homocyst Tot) 16.5 3.7-13.9 [place] [id number] 13:10:00 Test Item Value Reference Range Interpretation Comments Albumin % (test code = Albumin %) 51.0 55.8-66.1 [facility]behzofWIFPSCCRGQ6776-55-55 13:10:00 Test Item Value Reference Range Interpretation Comments Alpha 1 % (test code = Alpha 1 %) 8.6 2.8-4.9 [facility]BzihehxZIKTSFYIRZ6850-58-46 13:10:00 Test Item Value Reference Range Interpretation Comments Alpha 2 % (test code = Alpha 2 %) 14.6 7.0-11.9 [facility]manAqlcghjQFBGUYXHPH3587-42-19 13:10:00 Test Item Value Reference Range Interpretation Comments Beta % (test code = Beta %) 12.4 7.8-13.7 [facility]manQmwhkauJKDNQOHFEF3953-54-04 13:10:00 Test Item Value Reference Range Interpretation Comments Gamma % (test code = Gamma %) 13.4 11.1-18.7 [facility] KaufmanJwqeuacKBMSZWSSKZ0794-35-18 13:10:00 Test Item Value Reference Range Interpretation Comments Albumin (SPE) (test code = Albumin 3.83 3.57-5.55 (SPE)) [facility]DnrgzgtIQDXTLUDIN7554-45-74 13:10:00 Test Item Value Reference Range Interpretation Comments Alpha 1 Glob (test code = Alpha 1 Glob) 0.65 0.18-0.41 [facility]aufmanFibcgonOTMEOVONKZ3592-81-75 13:10:00 Test Item Value Reference Range Interpretation Comments Alpha 2 Glob (test code = Alpha 2 Glob) 1.10 0.45-1.00 [facility]aufmanTqbegikVPUDLGOFIM9767-40-85 13:10:00 Test Item Value Reference Range Interpretation Comments Beta Glob (test code = Beta Glob) 0.93 0.50-1.15 [facility]aufmanXivyhtrYJZWTNZRBU7245-23-38 13:10:00 Test Item Value Reference Range Interpretation Comments Gamma Glob (test code = Gamma Glob) 1.01 0.71-1.57 [facility]aufmanFxbwemhTSIDRCVSIG5112-19-53 13:10:00 Test Item Value Reference Range Interpretation Comments Tot Prot (SPE) (test code = Tot Prot 7.5 6.4-8.4 (SPE)) [facility]njzbkrVPTIGKSXUO6651[facility] 13:10:00 Test Item Value Reference Range Interpretation Comments SPE Interp (test Serum protein code = SPE Interp) electrophoresis demonstrates a small peak (0.30 g/dL) in the gamma globulin distribution curve. There is also a elevation of alpha-1 and alpha-2 globulin fractions. Total protein is within the reference range. Concurrent serum immunofixation demonstrates an IgM-kappa monoclonal immunoglobulin (see separate report). The electronic medical record has been reviewed for relevant clinical information. I have personally reviewed the test results and concur with the resident's interpretation. CPT 97913-ZD [facility] KaufmanDwzenaeIRMPNBGCZD1577-25-11 13:10:00 Test Item Value Reference Range Interpretation Comments Ronda Free Light Chains (test code = 110.41 3.30-19.40 Ronda Free Light Chains) [facility]manLljddhzBLKDQYHMFS8064-64-66 13:10:00 Test Item Value Reference Range Interpretation Comments Lambda Free Light Chains (test code = 40.85 5.70-26.30 Lambda Free Light Chains) [facility]aufmanJnhithqFVCLDZJHUM4639-54-97 13:10:00 Test Item Value Reference Range Interpretation Comments Ronda/Lambda Free Light Chains Ratio 2.70 0.26-1.65 (test code = Ronda/Lambda Free Light Chains Ratio) [facility]manAwnvbwdUJDAOEZIKW8425-31-81 13:10:00 Test Item Value Reference Range Interpretation Comments CMV IgG (test code = Reactive *ABN*(03/16/19 CMV IgG) 7:10 AM) [facility] HospitalHgdpszwEZYVYTHBPD6547-29-29 13:10:00 Test Item Value Reference Range Interpretation Comments EBV VCA IgG (test code = EBV VCA IgG) no gt [facility]manVhwsskmNAKZFUPBDE4178-15-21 13:10:00 Test Item Value Reference Range Interpretation Comments HIV Ag/Ab 4th Gen Negative *NA*(03/16/19 (test code = HIV 7:10 AM) Ag/Ab 4th Gen) [facility] HospitalTnksxsvHXIZESFKQK5415-90-72 13:10:00 Test Item Value Reference Range Interpretation Comments Hep A Tot (test code Positive *NA*(03/16/19 = Hep A Tot) 7:10 AM) [facility]aufmanBfcaopdTLXIJJBBSO0727-19-89 13:10:00 Test Item Value Reference Range Interpretation Comments Hep Bs Ab (test code = Hep Bs Ab) no gt [facility]manQwuvauxYYIBTCBLGQ4029-37-84 13:10:00 Test Item Value Reference Range Interpretation Comments Hep B Core Ab (test Negative *NA*(03/16/19 code = Hep B Core Ab) 7:10 AM) [facility] HospitalDmvxttmJVKBFNQLTD7570-00-34 13:10:00 Test Item Value Reference Range Interpretation Comments Hep Bs Ag (test code Negative *NA*(03/16/19 = Hep Bs Ag) 7:10 AM) [facility] HospitalHrmndetISHSRCQADC0041-21-02 13:10:00 Test Item Value Reference Range Interpretation Comments Hep C Ab (test code = Negative *NA*(03/16/19 Hep C Ab) 7:10 AM) [facility] HospitalAzvfmsbGBWACYGKWW6575-10-56 13:10:00 Test Item Value Reference Range Interpretation Comments HSV 2 IgG (test code = HSV 2 IgG) no gt [facility]manHctaeyoNMIKHQVCAS6064-42-56 13:10:00 Test Item Value Reference Range Interpretation Comments HSV 1 IgG (test code = HSV 1 IgG) no [facility]2020-01-15 13:10:00 Test Item Value Reference Range Interpretation Comments T-Spot.TB (test code Negative (03/16/19 7:10 = T-Spot.TB) AM) [facility] HospitalNtewofeIAUHOTVHBL9183-83-11 13:10:00 Test Item Value Reference Range Interpretation Comments Treponemal Ab (test code Non-Reactive = Treponemal Ab) *NA*(03/16/19 7:10 AM) [facility] HospitalPghteroJLDJMXCGDE3251-47-02 13:10:00 Test Item Value Reference Range Interpretation Comments Varicella IgG (test code = Varicella no gt IgG) [facility] HospitalWbykyiqLUOVFGNZMI7093-70-87 13:10:00 Test Item Value Reference Range Interpretation Comments Mumps IgG (test code = Mumps IgG) 5.1 [facility] HospitalDsskjalSOABLHEJCC5979-91-64 13:10:00 Test Item Value Reference Range Interpretation Comments Rubella IgG (test code = Rubella IgG) no gt [facility]manSxpopigRAVZBFKPQV0037-19-86 13:10:00 Test Item Value Reference Range Interpretation Comments Rubeola IgG (test code = Rubeola IgG) 2.0 [facility] HospitalBkhwbetPLBXGEMMNG3275-67-18 13:10:00 Test Item Value Reference Range Interpretation Comments KAREN Ser Pattern A distinct monoclonal (test code = KAREN Ser band is present in the Pattern) IgM izabella with a corresponding faint band in the kappa light chain izabella. The polyclonal gamma globulin background is preserved in all lanes. [facility]manPcgilgvPSRBHCDMXC6541-49-59 13:10:00 Test Item Value Reference Range Interpretation Comments KAREN Ser Interp The immunofixation (test code = KAREN electrophoresis results Ser Interp) (see pattern description) are consistent with monoclonal gammopathy of IgM-kappa isotype. Preservation of diffusely staining immunoreactivity indicates that the production of polyclonal immunoglobulins is not suppressed. Relevant medical information in the EMR was reviewed. I have personally reviewed the test results and concur with the resident's interpretation. CPT 98507-IJ [facility]aufmanTwkpmzmTLSCZC4380-42-25 13:10:00 Test Item Value Reference Range Interpretation Comments Trig (test code = Trig) 138 [facility]manWnzsbpqNIKSBH2868-51-44 13:10:00 Test Item Value Reference Range Interpretation Comments Chol (test code = Chol) 183 [facility]manMwgmieoFPHZLY0149-04-80 13:10:00 Test Item Value Reference Range Interpretation Comments HDL (test code = HDL) 40 [facility]aufmanBvcqkwoGJSYUD2552-94-92 13:10:00 Test Item Value Reference Range Interpretation Comments CHD Risk (test code = CHD Risk) 4.58 1 4.00-7.30 [facility]aufmanRneknzmNSMKVP6538-12-91 13:10:00 Test Item Value Reference Range Interpretation Comments LDL (Calculated) (test code = LDL 115 (Calculated)) [facility]aufmanDkfqqjbHATKKV4884-12-86 13:10:00 Test Item Value Reference Range Interpretation Comments VLDL (test code = VLDL) 28 1 [facility]manPARASITOLOGY - [id number] 13:10:00 Test Item Value Reference Range Interpretation Comments Strongyloides Antibodies (test code Negative = Strongyloides Antibodies) [facility]manPARATHYROID MUGLUMF8039-72-73 13:10:00 Test Item Value Reference Range Interpretation Comments PTH Intact (test code = PTH Intact) 579.6 18.4-80.1 [facility]manSPECIAL NMTGPJXAH7379-02-23 13:10:00 Test Item Value Reference Range Interpretation Comments Nicotine Lvl (test code = None Detected Nicotine Lvl) [facility] MTPJWBJFW3114-15-92 13:10:00 Test Item Value Reference Range Interpretation Comments Cotinine Lvl (test code = None Detected Cotinine Lvl) [facility] XKZMBBAJY9505-37-95 13:10:00 Test Item Value Reference Range Interpretation Comments Hgb A1C (test code = Hgb A1C) 6.1 [facility] KSRJIWMRI9277-57-41 13:10:00 Test Item Value Reference Range Interpretation Comments PSA (test code = PSA) 1.34 See_Comment [Auto mated message] The system which ge nerated this result transmit nicko reference range : <=4.00. The reference r carlos was not used to interpr et this result as adebayo l/abnormal. [facility] [id number] 13:10:00 Test Item Value Reference Range Interpretation Comments UA WBC (test code = 1 See_Comment [Automa nicko message] The UA WBC) system which ge nerated this result transmit nicko reference range : <=5. The reference range was not used to interpr et this result as adebayo l/abnormal. [facility] [id number] 13:10:00 Test Item Value Reference Range Interpretation Comments UA RBC (test code = 1 See_Comment [Automa nicko message] The UA RBC) system which ge nerated this result transmit nicko reference range : <=2. The reference range was not used to interpr et this result as adebayo l/abnormal. [facility] [id number] 13:10:00 Test Item Value Reference Range Interpretation Comments UA Color (test code = Yellow *NA*(03/16/19 UA Color) 7:10 AM) [facility] [id number] 13:10:00 Test Item Value Reference Range Interpretation Comments UA Turbidity (test code = Clear (03/16/19 7:10 UA Turbidity) AM) [facility] [id number] 13:10:00 Test Item Value Reference Range Interpretation Comments UA Spec Grav (test code = UA Spec 1.010 1 Grav) [facility] [id number] 13:10:00 Test Item Value Reference Range Interpretation Comments UA pH (test code = UA pH) 6.0 1 5.0-8.0 [facility] [id number] 13:10:00 Test Item Value Reference Range Interpretation Comments UA Protein (test code = UA Protein) 100 mg/dL [facility] [id number] 13:10:00 Test Item Value Reference Range Interpretation Comments UA Glucose (test code = UA Glucose) 100 mg/dL [facility] AND [id number] 13:10:00 Test Item Value Reference Range Interpretation Comments UA Ketones (test code Negative *NA*(03/16/19 = UA Ketones) 7:10 AM) [facility] AND [id number] 13:10:00 Test Item Value Reference Range Interpretation Comments UA Bili (test code = Negative *NA*(03/16/19 UA Bili) 7:10 AM) [facility] AND [id number] 13:10:00 Test Item Value Reference Range Interpretation Comments UA Blood (test code = Trace *ABN*(03/16/19 UA Blood) 7:10 AM) [facility] AND [id number] 13:10:00 Test Item Value Reference Range Interpretation Comments UA Urobilinogen (test code = UA 0.2 0.1-1.0 Urobilinogen) [facility] AND [id number] 13:10:00 Test Item Value Reference Range Interpretation Comments UA Nitrite (test code Negative (03/16/19 7:10 = UA Nitrite) AM) [facility] AND [id number] 13:10:00 Test Item Value Reference Range Interpretation Comments UA Leuk Est (test Negative (03/16/19 7:10 code = UA Leuk Est) AM) [facility] AND [id number] 13:10:00 Test Item Value Reference Range Interpretation Comments UA Sq Epi (test code = None Seen (03/16/19 7:10 UA Sq Epi) AM) [facility] [id number] 13:10:00 Test Item Value Reference Range Interpretation Comments U Creatinine (test code = U Creatinine) 74.20 [facility] [id number] 13:10:00 Test Item Value Reference Range Interpretation Comments U Alb (test code = U Alb) 892.0 [facility] [id number] 13:10:00 Test Item Value Reference Range Interpretation Comments U Alb/Crea (test code = U Alb/Crea) 1202.2 [facility] [id number] 13:10:00 Test Item Value Reference Range Interpretation Comments U Creatinine (test code = U Creatinine) 74.20 [facility]2020-01-15 13:10:00 Test Item Value Reference Range Interpretation Comments U Protein (test code = U Protein) 149.5 [facility]2020-01-15 13:10:00 Test Item Value Reference Range Interpretation Comments U Prot/Creat (test code = U 2.01 1 Prot/Creat) [facility]2020-01-15 13:10:00 Test Item Value Reference Range Interpretation Comments U Creatinine (test code = U Creatinine) 74.20 [facility]2020-01-15 13:10:00 Test Item Value Reference Range Interpretation Comments U Alb (test code = U Alb) 892.0 [facility]2020-01-15 13:10:00 Test Item Value Reference Range Interpretation Comments U Alb/Crea (test code = U Alb/Crea) 1202.2 [facility]2020-01-15 13:10:00 Test Item Value Reference Range Interpretation Comments T cruzi (Chagas) Ab (test code = Non Reactive T cruzi (Chagas) Ab) [facility] [id number] 13:10:00 Test Item Value Reference Range Interpretation Comments W Nile Ab IgG (test code = W Nile Ab Negative IgG) [facility]2020-01-15 13:10:00 Test Item Value Reference Range Interpretation Comments W Nile Ab IgM (test code = W Nile Ab Negative IgM) [facility] HospitalCojtpabZRIGZKACGN1391-94-20 16:49:00 Test Item Value Reference Range Interpretation Comments 24Hr UPE (test code = 24Hr UPE) 1444 [facility] HospitalBoxdkamEFLWQGTHPJ2518-56-34 16:49:00 Test Item Value Reference Range Interpretation Comments 24Hr UPE Int Urine protein (test code = 24Hr electrophoresis revealed UPE Int) presence of all protein fractions with a 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 There is no evidence of a paraprotein. However, if monoclonal gammopathy is a clinical consideration, recommend urine immunofixation electrophoresis to further evaluate for the presence of free monoclonal light chains. Relevant medical information in the EMR was reviewed. I have personally reviewed the test results and concur with the resident's interpretation. CPT: 81557-JK [facility] HospitalGlwrdhgLYREOBKMHA7994-67-57 16:49:00 Test Item Value Reference Range Interpretation Comments 24 UPE Tot Vol (test code = 24 UPE Tot 2725 Vol) [facility]manCumsrmrUFWDUBWRVN5951-43-01 16:49:00 Test Item Value Reference Range Interpretation Comments 24 UPE Tot Prot (test code = 24 UPE Tot 53 Prot) [facility] HospitalSyrvyvoDDUSZWHLCA7421-61-50 16:49:00 Test Item Value Reference Range Interpretation Comments 24Hr UPE (test code = 24Hr UPE) 1444 [facility]manKvymmqmRKSMFOPIMF9021-89-89 16:49:00 Test Item Value Reference Range Interpretation Comments 24Hr UPE Int Urine protein (test code = 24Hr electrophoresis revealed UPE Int) presence of all protein fractions with a 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 There is no evidence of a paraprotein. However, if monoclonal gammopathy is a clinical consideration, recommend urine immunofixation electrophoresis to further evaluate for the presence of free monoclonal light chains. Relevant medical information in the EMR was reviewed. I have personally reviewed the test results and concur with the resident's interpretation. CPT: 17988-RD [facility]aufmanBgybswhZIUSLXRWLH8818-70-39 16:49:00 Test Item Value Reference Range Interpretation Comments 24 UPE Tot Vol (test code = 24 UPE Tot 2725 Vol) [facility] HospitalRaujfgsBPTAEPNSYV8545-74-33 16:49:00 Test Item Value Reference Range Interpretation Comments 24 UPE Tot Prot (test code = 24 UPE Tot 53 Prot) [facility]CHEM [id number] 17:46:00 Test Item Value Reference Range Interpretation Comments LDH (test code = LDH) 150 98-192 [facility]manCHEM [id number] 17:46:00 Test Item Value Reference Range Interpretation Comments V-8-Wlxezzfef (test code = 9.6 1.0-2.3 H-4-Srqquurwt) [facility]manIatgvujDCGNWPIQSL6826-63-11 17:46:00 Test Item Value Reference Range Interpretation Comments MCHC (test code = MCHC) 32.9 32.0-36.0 [facility]manMbgzvxyUPOATGKNGO3036-10-68 17:46:00 Test Item Value Reference Range Interpretation Comments Platelet (test code = Platelet) 250 133-450 [facility]ExinbzjLQGEVHXVPB6761-76-89 17:46:00 Test Item Value Reference Range Interpretation Comments RDW (test code = RDW) 16.3 11.5-14.5 [facility]BsjqvynNBCSMJLSKL5475-46-30 17:46:00 Test Item Value Reference Range Interpretation Comments MPV (test code = MPV) 9.1 7.4-10.4 [facility] SystemSkhdlsxRDFGCZMSRQ8366-24-39 17:46:00 Test Item Value Reference Range Interpretation Comments Hgb (test code = Hgb) 13.2 14.0-18.0 [facility] SystemVaqluxsZOYVITQMWT2596-26-39 17:46:00 Test Item Value Reference Range Interpretation Comments Hct (test code = Hct) 40.2 42.0-54.0 [facility] SystemYjfjxjiYXVWYFZILU0221-12-83 17:46:00 Test Item Value Reference Range Interpretation Comments MCV (test code = MCV) 87.8 80.0-94.0 [facility] SystemUoyiqvlNHQCFXFTDU1020-97-84 17:46:00 Test Item Value Reference Range Interpretation Comments MCH (test code = MCH) 28.9 pg 27.0-31.0 [facility] SystemVqhjsitUOGPTJLHAO2789-68-64 17:46:00 Test Item Value Reference Range Interpretation Comments WBC (test code = WBC) 9.9 3.7-10.4 [facility] SystemThelffuRUGMALDQMD8903-62-69 17:46:00 Test Item Value Reference Range Interpretation Comments RBC (test code = RBC) 4.58 4.70-6.10 [facility] SystemBuureifPQXAVZIKOM1117-45-86 17:46:00 Test Item Value Reference Range Interpretation Comments Eosinophils # (test code 0.2 See_Comment [A utomated message] The = Eosinophils #) system whic h generated this result tra nsmitted reference range : <=0.5. The reference r carlos was not used to int erpret this result as normal/abnormal . [facility] SystemLwwbbafOJRDNWHMAS6390-83-33 17:46:00 Test Item Value Reference Range Interpretation Comments Basophils # (test code 0.1 See_Comment [Aut omated message] The = Basophils #) system which generated this result tra nsmitted reference range : <=0.2. The reference r carlos was not used to int erpret this result as normal/abnormal . [facility] SystemKukwqrpIRNACEWOJF4557-64-87 17:46:00 Test Item Value Reference Range Interpretation Comments Basophils (test code = 0.7 See_Comment [Aut omated message] The Basophils) system which ge nerated this result tra nsmitted reference range : <=1.0. The reference r carlos was not used to int erpret this result as normal/abnormal . [facility] SystemTxqacwuJWUSWZUPAQ6052-35-77 17:46:00 Test Item Value Reference Range Interpretation Comments Neutrophils # (test code = Neutrophils 6.6 1.5-8.1 #) [facility] SystemUqfpnkxGNNJRAIMEJ0127-78-11 17:46:00 Test Item Value Reference Range Interpretation Comments Lymphocytes # (test code = Lymphocytes 2.4 1.0-5.5 #) [facility] SystemEzytayuAACDELKCOB8930-98-03 17:46:00 Test Item Value Reference Range Interpretation Comments Monocytes # (test code 0.6 See_Comment [Aut omated message] The = Monocytes #) system which generated this result tra nsmitted reference range : <=0.8. The reference r carlos was not used to int erpret this result as normal/abnormal . [facility] SystemDajoefeKHJOXDOLXL6483-13-47 17:46:00 Test Item Value Reference Range Interpretation Comments Segs (test code = Segs) 66.7 45.0-75.0 [facility] SystemEavydouDQICMSZPIP5750-88-19 17:46:00 Test Item Value Reference Range Interpretation Comments Monocytes (test code = Monocytes) 6.3 2.0-12.0 [facility] SystemIuonnpnPVTYJKEKRH9026-82-07 17:46:00 Test Item Value Reference Range Interpretation Comments Lymphocytes (test code = Lymphocytes) 24.3 20.0-40.0 [facility] SystemEjlyscdSDMNSNFXTG9072-41-27 17:46:00 Test Item Value Reference Range Interpretation Comments Eosinophils (test code = 2.0 See_Comment [A utomated message] The Eosinophils) system which ge nerated this result tra nsmitted reference range : <=4.0. The reference r carlos was not used to int erpret this result as normal/abnormal . [facility] HospitalNfnqrecOOQIDOMTUJ3755-74-54 17:46:00 Test Item Value Reference Range Interpretation Comments Ronda/Lambda Free Light Chains Ratio 2.17 0.26-1.65 (test code = Ronda/Lambda Free Light Chains Ratio) [facility] HospitalBnyummdPIEQRDNYIB9281-64-85 17:46:00 Test Item Value Reference Range Interpretation Comments Ronda Free Light Chains (test code = 92.69 3.30-19.40 Ronda Free Light Chains) [facility]manOkeuztqIAQYLZXINQ4698-56-58 17:46:00 Test Item Value Reference Range Interpretation Comments Lambda Free Light Chains (test code = 42.69 5.70-26.30 Lambda Free Light Chains) [facility]manCHEM QYUQD4218-36-51 17:46:00 Test Item Value Reference Range Interpretation Comments LDH (test code = LDH) 150 98-192 [facility]CHE[facility] YKSEI5471-40-47 17:46:00 Test Item Value Reference Range Interpretation Comments J-1-Smvrpchyc (test code = 9.6 1.0-2.3 J-2-Zwrgrqwbj) [facility]manOzygbljMAYWBCTFLG0272-16-13 17:46:00 Test Item Value Reference Range Interpretation Comments MCHC (test code = MCHC) 32.9 32.0-36.0 [facility] SystemUlbmyhxCHNSNZZSZX4226-89-97 17:46:00 Test Item Value Reference Range Interpretation Comments Platelet (test code = Platelet) 250 133-450 [facility] SystemYqabonmMOIEXDSMIX3426-42-16 17:46:00 Test Item Value Reference Range Interpretation Comments RDW (test code = RDW) 16.3 11.5-14.5 [facility] SystemKyorwkbITYAHQKINF8231-94-66 17:46:00 Test Item Value Reference Range Interpretation Comments MPV (test code = MPV) 9.1 7.4-10.4 [facility] SystemClgbxwjFXCXIUAJQR0153-56-73 17:46:00 Test Item Value Reference Range Interpretation Comments Hgb (test code = Hgb) 13.2 14.0-18.0 [facility] SystemPqkzouaFHIQNSQQHT5000-80-68 17:46:00 Test Item Value Reference Range Interpretation Comments Hct (test code = Hct) 40.2 42.0-54.0 [facility] SystemAufaiwrJOJOCVAVKK0796-39-97 17:46:00 Test Item Value Reference Range Interpretation Comments MCV (test code = MCV) 87.8 80.0-94.0 [facility] SystemQelivzcXONOMDNJSG8528-01-54 17:46:00 Test Item Value Reference Range Interpretation Comments MCH (test code = MCH) 28.9 pg 27.0-31.0 [facility] SystemVgbleraXWLFGBNWCJ3370-88-41 17:46:00 Test Item Value Reference Range Interpretation Comments WBC (test code = WBC) 9.9 3.7-10.4 [facility] SystemCffcoetFIMYCBBEDO6790-32-02 17:46:00 Test Item Value Reference Range Interpretation Comments RBC (test code = RBC) 4.58 4.70-6.10 [facility] SystemYdidltyAAWBYMYNTR2937-40-05 17:46:00 Test Item Value Reference Range Interpretation Comments Eosinophils # (test code 0.2 See_Comment [A utomated message] The = Eosinophils #) system whic h generated this result tra nsmitted reference range : <=0.5. The reference r carlos was not used to int erpret this result as normal/abnormal . [facility] SystemKemabqqXNZPIRVUVF7605-95-17 17:46:00 Test Item Value Reference Range Interpretation Comments Basophils # (test code 0.1 See_Comment [Aut omated message] The = Basophils #) system which generated this result tra nsmitted reference range : <=0.2. The reference r carlos was not used to int erpret this result as normal/abnormal . [facility] SystemIyvfvcoKXODCSNPRP3686-82-78 17:46:00 Test Item Value Reference Range Interpretation Comments Basophils (test code = 0.7 See_Comment [Aut omated message] The Basophils) system which ge nerated this result tra nsmitted reference range : <=1.0. The reference r carlos was not used to int erpret this result as normal/abnormal . [facility] SystemYxyqvqaNLWFFTAJGI8957-46-91 17:46:00 Test Item Value Reference Range Interpretation Comments Neutrophils # (test code = Neutrophils 6.6 1.5-8.1 #) [facility] SystemYbrhlcrIWDKBFXADR0656-38-11 17:46:00 Test Item Value Reference Range Interpretation Comments Lymphocytes # (test code = Lymphocytes 2.4 1.0-5.5 #) [facility] SystemShkujchEIVVGKKJDW4196-08-29 17:46:00 Test Item Value Reference Range Interpretation Comments Monocytes # (test code 0.6 See_Comment [Aut omated message] The = Monocytes #) system which generated this result tra nsmitted reference range : <=0.8. The reference r carlos was not used to int erpret this result as normal/abnormal . [facility] SystemWralekoYASXSTEDJD9103-87-04 17:46:00 Test Item Value Reference Range Interpretation Comments Segs (test code = Segs) 66.7 45.0-75.0 [facility] SystemBmawubaBKCVNALRZU0535-53-35 17:46:00 Test Item Value Reference Range Interpretation Comments Monocytes (test code = Monocytes) 6.3 2.0-12.0 [facility] SystemRenocagBAHXIXWMHM5819-37-72 17:46:00 Test Item Value Reference Range Interpretation Comments Lymphocytes (test code = Lymphocytes) 24.3 20.0-40.0 [facility] SystemSjnticfABMWQGIWXQ2339-21-95 17:46:00 Test Item Value Reference Range Interpretation Comments Eosinophils (test code = 2.0 See_Comment [A utomated message] The Eosinophils) system which ge nerated this result tra nsmitted reference range : <=4.0. The reference r carlos was not used to int erpret this result as normal/abnormal . [facility]VrsumayVFTEWXSXJC5649-91-21 17:46:00 Test Item Value Reference Range Interpretation Comments Ronda/Lambda Free Light Chains Ratio 2.17 0.26-1.65 (test code = Ronda/Lambda Free Light Chains Ratio) [facility] HospitalGqvcxrtBYBDTJSPZR1120-02-63 17:46:00 Test Item Value Reference Range Interpretation Comments Ronda Free Light Chains (test code = 92.69 3.30-19.40 Ronda Free Light Chains) [facility] HospitalHxtlxvpJZABONYYCB6548-96-06 17:46:00 Test Item Value Reference Range Interpretation Comments Lambda Free Light Chains (test code = 42.69 5.70-26.30 Lambda Free Light Chains) [facility] HospitalIxredloHOFWSPVMND0880-98-46 17:44:11 Test Item Value Reference Range Interpretation Comments U KAREN Interp (test Urine immunofixation code = U KAREN electrophoresis revealed Interp) spillage of polyclonal immunoglobulins mainly of IgG and IgA isotypes. There is no spillage of monoclonal immunoglobulins or free monoclonal light chains. Relevant medical information in the EMR was reviewed. I have personally reviewed the test results and concur with the resident's interpretation. CPT 61407-QE [facility]QcommgyOIPAKZUUCY4720-67-17 17:44:11 Test Item Value Reference Range Interpretation Comments U KAREN Pattern Diffusely staining (test code = U KAREN immunoreactivity is present Pattern) mainly in IgG, IgA, kappa and lambda lanes. No monoclonal bands are seen. [facility]manFcpgifaCZJOEXOUVH4735-57-64 17:44:11 Test Item Value Reference Range Interpretation Comments U KAREN Interp (test Urine immunofixation code = U KAREN electrophoresis revealed Interp) spillage of polyclonal immunoglobulins mainly of IgG and IgA isotypes. There is no spillage of monoclonal immunoglobulins or free monoclonal light chains. Relevant medical information in the EMR was reviewed. I have personally reviewed the test results and concur with the resident's interpretation. CPT 87785-ER [facility]manVhndqetAHIAEQPJUH4373-41-86 17:44:11 Test Item Value Reference Range Interpretation Comments U KAREN Pattern Diffusely staining (test code = U KAREN immunoreactivity is present Pattern) mainly in IgG, IgA, kappa and lambda lanes. No monoclonal bands are seen. [facility] [id number] 20:36:00 Test Item Value Reference Range Interpretation Comments Test Name (test code = HLA TYPING RESULTS Test Name) [facility] [id number] 20:36:00 Test Item Value Reference Range Interpretation Comments Test Name (test code = HLA TYPING RESULTS Test Name) [facility] [id number] 15:40:00 Test Item Value Reference Range Interpretation Comments ABO/RH Confirm (test code = ABO/RH O POS Confirm) [facility] [id number] 15:40:00 Test Item Value Reference Range Interpretation Comments ABO/RH Confirm (test code = ABO/RH O POS Confirm) [facility] [id number] 14:50:00 Test Item Value Reference Range Interpretation Comments Ferritin Lvl (test code = Ferritin Lvl) 213 22-275 [facility] [id number] 14:50:00 Test Item Value Reference Range Interpretation Comments UIBC (test code = UIBC) 261 110-370 [facility] [id number] 14:50:00 Test Item Value Reference Range Interpretation Comments % Satur Fe (test code = % Satur Fe) 15 12-57 [facility] [id number] 14:50:00 Test Item Value Reference Range Interpretation Comments Iron (test code = Iron) 46 45-160 [facility] [id number] 14:50:00 Test Item Value Reference Range Interpretation Comments TIBC (test code = TIBC) 307 228-428 [facility] [id number] 14:50:00 Test Item Value Reference Range Interpretation Comments OP ABORh Int (test code = OP ABORh Int) O POS [facility]2019-02-05 14:50:00 Test Item Value Reference Range Interpretation Comments Vitamin D, 25-OH, Total (test code = 36.8 30.0-100.0 Vitamin D, 25-OH, Total) [facility]2019-02-05 14:50:00 Test Item Value Reference Range Interpretation Comments Uric Acid (test code = Uric Acid) 7.3 3.8-8.0 [facility]2019-02-05 14:50:00 Test Item Value Reference Range Interpretation Comments Phosphorus (test code = Phosphorus) 3.4 2.5-4.5 [facility]2019-02-05 14:50:00 Test Item Value Reference Range Interpretation Comments Magnesium Lvl (test code = Magnesium 2.0 1.8-2.4 Lvl) [facility]2019-02-05 14:50:00 Test Item Value Reference Range Interpretation Comments C-Peptide (test code = C-Peptide) 8.17 0.48-5.05 [facility]2019-02-05 14:50:00 Test Item Value Reference Range Interpretation Comments A/G Ratio (test code = A/G Ratio) 0.9 1 0.7-1.6 [facility]2019-02-05 14:50:00 Test Item Value Reference Range Interpretation Comments B/C Ratio (test code = B/C Ratio) 9 1 6-25 [place] 511359-02-05 14:50:00 Test Item Value Reference Range Interpretation Comments AGAP (test code = AGAP) 12.4 10.0-20.0 [facility]2019-02-05 14:50:00 Test Item Value Reference Range Interpretation Comments Globulin (test code = Globulin) 4.2 2.7-4.2 [facility]2019-02-05 14:50:00 Test Item Value Reference Range Interpretation Comments eGFR (test code = eGFR) 14 [facility]2019-02-05 14:50:00 Test Item Value Reference Range Interpretation Comments ALT (test code = ALT) 12 See_Comment [Auto mated message] The system which ge nerated this result transmit nicko reference range : <=65. The reference range was not used to interpr et this result as adebayo l/abnormal. [facility]2019-02-05 14:50:00 Test Item Value Reference Range Interpretation Comments Alk Phos (test code = Alk Phos) 70 39-136 [facility]2019-02-05 14:50:00 Test Item Value Reference Range Interpretation Comments AST (test code = AST) 8 See_Comment [Auto mated message] The system which ge nerated this result transmit nicko reference range : <=37. The reference range was not used to interpr et this result as adebayo l/abnormal. [facility]2019-02-05 14:50:00 Test Item Value Reference Range Interpretation Comments Albumin Lvl (test code = Albumin Lvl) 3.7 3.5-5.0 [facility]2019-02-05 14:50:00 Test Item Value Reference Range Interpretation Comments Bili Total (test code = Bili Total) 0.3 0.2-1.3 [facility]2019-02-05 14:50:00 Test Item Value Reference Range Interpretation Comments Glucose Lvl (test code = Glucose Lvl) 83 70-99 [facility]2019-02-05 14:50:00 Test Item Value Reference Range Interpretation Comments Sodium Lvl (test code = Sodium Lvl) 137 135-145 [facility]2019-02-05 14:50:00 Test Item Value Reference Range Interpretation Comments BUN (test code = BUN) 35 7-22 [facility]2019-02-05 14:50:00 Test Item Value Reference Range Interpretation Comments Creatinine Lvl (test code = Creatinine 4.10 0.50-1.40 Lvl) [facility]2019-02-05 14:50:00 Test Item Value Reference Range Interpretation Comments CO2 (test code = CO2) 25 24-32 [facility]2019-02-05 14:50:00 Test Item Value Reference Range Interpretation Comments Calcium Lvl (test code = Calcium Lvl) 9.7 8.5-10.5 [facility]2019-02-05 14:50:00 Test Item Value Reference Range Interpretation Comments Potassium Lvl (test code = Potassium 4.4 3.5-5.1 Lvl) [facility]2019-02-05 14:50:00 Test Item Value Reference Range Interpretation Comments Chloride Lvl (test code = Chloride Lvl) 104 95-109 [facility] Center'dannCHEM [id number] 14:50:00 Test Item Value Reference Range Interpretation Comments Total Protein (test code = Total 7.9 6.4-8.4 Protein) [facility] [id number] 14:50:00 Test Item Value Reference Range Interpretation Comments Opiate Qnt (test code = Opiate Qnt) Negative [facility] [id number] 14:50:00 Test Item Value Reference Range Interpretation Comments Phencyclidine Scr (test code = Negative Phencyclidine Scr) [facility] [id number] 14:50:00 Test Item Value Reference Range Interpretation Comments Kaitlin Scr (test code = Kaitlin Scr) Negative [facility] [id number] 14:50:00 Test Item Value Reference Range Interpretation Comments Methadone Scr (test code = Methadone Negative Scr) [facility] [id number] 14:50:00 Test Item Value Reference Range Interpretation Comments Cocaine Scr (test code = Cocaine Negative Scr) [facility] [id number] 14:50:00 Test Item Value Reference Range Interpretation Comments Cannab Scr (test code = Cannab Scr) Negative [facility] [id number] 14:50:00 Test Item Value Reference Range Interpretation Comments Amph Scr (test code = Amph Scr) Negative [facility] [id number] 14:50:00 Test Item Value Reference Range Interpretation Comments Opiate Scr (test code = Opiate Scr) Positive [facility] [id number] 14:50:00 Test Item Value Reference Range Interpretation Comments 6-Acetylmor Scr (test code = Negative 6-Acetylmor Scr) [facility] [id number] 14:50:00 Test Item Value Reference Range Interpretation Comments Benzodiaz Scr (test code = Benzodiaz Negative Scr) [facility] WorthJqknytwIAODWEBWLM1409-25-62 14:50:00 Test Item Value Reference Range Interpretation Comments Basophils # (test code 0.1 See_Comment [Aut omated message] The = Basophils #) system which generated this result tra nsmitted reference range : <=0.2. The reference r carlos was not used to int erpret this result as normal/abnormal . [facility] SystemJauuyexJCVIUPKNGA7983-60-08 14:50:00 Test Item Value Reference Range Interpretation Comments Segs (test code = Segs) 68.2 45.0-75.0 [facility] SystemYstjkbcGFOBMQIXDI0195-54-83 14:50:00 Test Item Value Reference Range Interpretation Comments Lymphocytes (test code = Lymphocytes) 20.5 20.0-40.0 [facility] SystemJnpuvdoYMLRAAREOL3743-62-26 14:50:00 Test Item Value Reference Range Interpretation Comments Neutrophils # (test code = Neutrophils 6.0 1.5-8.1 #) [facility] SystemWgukbkgYWATZDLHLL6276-76-28 14:50:00 Test Item Value Reference Range Interpretation Comments Basophils (test code = 0.6 See_Comment [Aut omated message] The Basophils) system which ge nerated this result tra nsmitted reference range : <=1.0. The reference r carlos was not used to int erpret this result as normal/abnormal . [facility] SystemHfitcsrRIQMULRIJF9907-13-72 14:50:00 Test Item Value Reference Range Interpretation Comments Lymphocytes # (test code = Lymphocytes 1.8 1.0-5.5 #) [facility] SystemCgmpvakUNGDJPYIJD2553-54-06 14:50:00 Test Item Value Reference Range Interpretation Comments Eosinophils (test code = 3.2 See_Comment [A utomated message] The Eosinophils) system which ge nerated this result tra nsmitted reference range : <=4.0. The reference r carlos was not used to int erpret this result as normal/abnormal . [facility] SystemPncrmawLXOUJCFMVI5101-83-70 14:50:00 Test Item Value Reference Range Interpretation Comments Monocytes (test code = Monocytes) 7.5 2.0-12.0 [facility] SystemFidlxevQPHMDYRMWW5877-50-00 14:50:00 Test Item Value Reference Range Interpretation Comments Eosinophils # (test code 0.3 See_Comment [A utomated message] The = Eosinophils #) system whic h generated this result tra nsmitted reference range : <=0.5. The reference r carlos was not used to int erpret this result as normal/abnormal . [facility] SystemQjdzbboWBUYFOUFPR4226-72-76 14:50:00 Test Item Value Reference Range Interpretation Comments Monocytes # (test code 0.7 See_Comment [Aut omated message] The = Monocytes #) system which generated this result tra nsmitted reference range : <=0.8. The reference r carlos was not used to int erpret this result as normal/abnormal . [facility] SystemHswyxylHOYUSRZLWA5819-14-83 14:50:00 Test Item Value Reference Range Interpretation Comments Hgb (test code = Hgb) 13.3 14.0-18.0 [facility] SystemXzbhzdaYYWAZJFINB0790-34-25 14:50:00 Test Item Value Reference Range Interpretation Comments Hct (test code = Hct) 41.1 42.0-54.0 [facility] SystemAhahnqzBBNSDQFDFH8394-32-17 14:50:00 Test Item Value Reference Range Interpretation Comments MCV (test code = MCV) 88.4 80.0-94.0 [facility] SystemXgsyzpaFETNWMHVXK9573-99-80 14:50:00 Test Item Value Reference Range Interpretation Comments MCH (test code = MCH) 28.7 pg 27.0-31.0 [facility] SystemSabksmvFQVGVVPESB4099-72-38 14:50:00 Test Item Value Reference Range Interpretation Comments RBC (test code = RBC) 4.65 4.70-6.10 [facility] SystemTwgwhzvSJBGWHXOEE6217-28-05 14:50:00 Test Item Value Reference Range Interpretation Comments RDW (test code = RDW) 14.6 11.5-14.5 [facility] SystemVtdpaooFKPKJXTLBZ5412-65-39 14:50:00 Test Item Value Reference Range Interpretation Comments MCHC (test code = MCHC) 32.5 32.0-36.0 [facility] SystemUivklcxZBWIXRKPED6364-39-78 14:50:00 Test Item Value Reference Range Interpretation Comments Platelet (test code = Platelet) 238 133-450 [facility] SystemJevnmyeXXPAKMQCHY6900-23-91 14:50:00 Test Item Value Reference Range Interpretation Comments MPV (test code = MPV) 9.0 7.4-10.4 [facility] SystemBtgqossXTABCTXUSF1596-13-54 14:50:00 Test Item Value Reference Range Interpretation Comments WBC (test code = WBC) 8.8 3.7-10.4 [facility] SystemGlzzhgrIQOVUUCGBZ6938-44-03 14:50:00 Test Item Value Reference Range Interpretation Comments INR (test code = INR) 0.96 1 0.85-1.17 [facility] SystemAzmgyqaBMHBSQYWQL8445-56-21 14:50:00 Test Item Value Reference Range Interpretation Comments PT (test code = PT) 12.6 s 12.0-14.7 [facility]QhwqxaxWEIMCZTFRU6101-38-66 14:50:00 Test Item Value Reference Range Interpretation Comments PTT (test code = PTT) 34.7 s 22.9-35.8 [facility] WorthIeakmonINHYKWNJCK3144-08-91 14:50:00 Test Item Value Reference Range Interpretation Comments Treponemal Ab (test code Non-Reactive = Treponemal Ab) *NA*(04/06/18 8:50 AM) [facility]manNuitguyXUGKIOGQBI1484-78-16 14:50:00 Test Item Value Reference Range Interpretation Comments Varicella IgM (test no gt See_Comment [Automa nicko message] The code = Varicella IgM) system which generated this result tra nsmitted reference range : <=0.90. The reference r carlos was not used to int erpret this result as normal/abnormal . [facility]manKctymgmURGXKHFIMA9680-20-15 14:50:00 Test Item Value Reference Range Interpretation Comments Varicella IgG (test code = Varicella no gt IgG) [facility]manVfrlqvxPMSAXFXWMF0249-73-90 14:50:00 Test Item Value Reference Range Interpretation Comments Hep Bs Ag (test code Negative *NA*(04/06/18 = Hep Bs Ag) 8:50 AM) [facility]manRxhtdgtMCANXWLFRD6926-08-98 14:50:00 Test Item Value Reference Range Interpretation Comments HSV 1 IgG (test code = HSV 1 IgG) no gt [facility] WorthPjmviotHLWAQLETOG8843-87-74 14:50:00 Test Item Value Reference Range Interpretation Comments HSV 2 IgG (test code = HSV 2 IgG) no gt [facility] WorthLqxdfsbEMRUXSFEFJ5109-20-96 14:50:00 Test Item Value Reference Range Interpretation Comments Lambda Free Light Chains (test code = 66.41 5.70-26.30 Lambda Free Light Chains) [facility]manHjglywpKXKKGIALQL9823-11-79 14:50:00 Test Item Value Reference Range Interpretation Comments Ronda/Lambda Free Light Chains Ratio 1.66 0.26-1.65 (test code = Ronda/Lambda Free Light Chains Ratio) [facility]manEklkpmgWXWNWZFTDN0684-09-38 14:50:00 Test Item Value Reference Range Interpretation Comments Ronda Free Light Chains (test code = 110.34 3.30-19.40 Ronda Free Light Chains) [facility] WorthNtkqamsHRXYTWGMXJ0039-24-89 14:50:00 Test Item Value Reference Range Interpretation Comments Hep C Ab (test code = Negative *NA*(04/06/18 Hep C Ab) 8:50 AM) [facility]PhnsbqdRLNCYJBSFP5453-92-26 14:50:00 Test Item Value Reference Range Interpretation Comments T-Spot.TB (test code Negative (04/06/18 8:50 = T-Spot.TB) AM) [facility] HospitalCalncpoNFDQNWVZIA7195-10-70 14:50:00 Test Item Value Reference Range Interpretation Comments SPE Interp (test Serum protein code = SPE Interp) electrophoresis demonstrates a small peak (0.22 g/dL) in the gamma globulin distribution curve. Concurrent serum immunofixation demonstrates an IgM-kappa monoclonal immunoglobulin (see separate report). Total protein is within the reference range. Serum protein electrophoresis demonstrates otherwise normal distribution of the main protein fractions. The electronic medical record has been reviewed for relevant clinical information. I have personally reviewed the test results and concur with the resident's interpretation. CPT 14263-FS [facility] HospitalWyjeppnNGDHZQNXRV3899-64-62 14:50:00 Test Item Value Reference Range Interpretation Comments Beta Glob (test code = Beta Glob) 0.99 0.50-1.15 [facility] HospitalUvybpwlBCUIJLSADI2927-50-83 14:50:00 Test Item Value Reference Range Interpretation Comments Gamma Glob (test code = Gamma Glob) 1.28 0.71-1.57 [facility] HospitalGygaqvaSBUSJMXHXX8222-64-07 14:50:00 Test Item Value Reference Range Interpretation Comments Tot Prot (SPE) (test code = Tot Prot 7.9 6.4-8.4 (SPE)) [facility] HospitalJplmenlYIAXPOJKES9134-04-78 14:50:00 Test Item Value Reference Range Interpretation Comments Albumin (SPE) (test code = Albumin 4.25 3.57-5.55 (SPE)) [facility] HospitalDdoeuchWRTAUTKSQQ2645-30-13 14:50:00 Test Item Value Reference Range Interpretation Comments Gamma % (test code = Gamma %) 16.2 11.1-18.7 [facility] HospitalHgygcacAPCKQLGOGR5982-83-19 14:50:00 Test Item Value Reference Range Interpretation Comments Alpha 1 Glob (test code = Alpha 1 Glob) 0.43 0.18-0.41 [facility] HospitalSpcxektICHHCKXVDR4866-67-70 14:50:00 Test Item Value Reference Range Interpretation Comments Alpha 2 Glob (test code = Alpha 2 Glob) 0.96 0.45-1.00 [facility] HospitalYdqpzkeCXGTJSMOBU1431-83-64 14:50:00 Test Item Value Reference Range Interpretation Comments Alpha 1 % (test code = Alpha 1 %) 5.4 2.8-4.9 [facility] HospitalNzncwbvTMNHSQBBPH9388-84-74 14:50:00 Test Item Value Reference Range Interpretation Comments Albumin % (test code = Albumin %) 53.8 55.8-66.1 [facility] HospitalDzkwwbdFHBJAYBCEV7110-14-60 14:50:00 Test Item Value Reference Range Interpretation Comments Beta % (test code = Beta %) 12.5 7.8-13.7 [facility] HospitalBpnneqsONQBDRGLBP0446-91-27 14:50:00 Test Item Value Reference Range Interpretation Comments Alpha 2 % (test code = Alpha 2 %) 12.1 7.0-11.9 [facility] HospitalYncuqcqKQFHZWGMEG9298-46-33 14:50:00 Test Item Value Reference Range Interpretation Comments EBV VCA IgM (test code = EBV VCA IgM) no gt [facility] HospitalBwvvdgxECPXPBUFLY4166-62-84 14:50:00 Test Item Value Reference Range Interpretation Comments EBV VCA IgG (test code = EBV VCA IgG) no gt [facility] HospitalPvggohzWVJQVCYXZH8430-45-86 14:50:00 Test Item Value Reference Range Interpretation Comments Hep Bs Ab (test code = Hep Bs Ab) 5.2 [facility] HospitalShifemwSKIUMVXXAM6278-37-10 14:50:00 Test Item Value Reference Range Interpretation Comments Hep B Core Ab (test Negative *NA*(04/06/18 code = Hep B Core Ab) 8:50 AM) [facility] HospitalHsgrmmuXLKNWAVTWU4189-30-70 14:50:00 Test Item Value Reference Range Interpretation Comments HIV Ag/Ab 4th Gen Negative *NA*(04/06/18 (test code = HIV 8:50 AM) Ag/Ab 4th Gen) [facility] HospitalOsgnqhhHWEGNXRJYJ0103-13-72 14:50:00 Test Item Value Reference Range Interpretation Comments KAREN Ser Interp The immunofixation (test code = KAREN electrophoresis results Ser Interp) (see pattern description) are consistent with monoclonal gammopathy of IgM-kappa isotype. Preservation of diffusely staining immunoreactivity indicates that the production of polyclonal immunoglobulins is not suppressed. Relevant medical information in the EMR was reviewed. I have personally reviewed the test results and concur with the resident's interpretation. CPT 28991-BZ [facility] WorthScilyfpVQXCBOWJKN2240-01-95 14:50:00 Test Item Value Reference Range Interpretation Comments KAREN Ser Pattern A distinct monoclonal (test code = KAREN Ser band is present in the Pattern) IgM izabella with a corresponding faint band in the kappa light chain izabella. The polyclonal gamma globulin background is preserved in all lanes. [facility] WorthXsemewsMSZWHBJHMV5675-06-62 14:50:00 Test Item Value Reference Range Interpretation Comments CMV IgG (test code = Reactive *ABN*(04/06/18 CMV IgG) 8:50 AM) [facility] WorthOncqibzQPBZGZSPUC0212-74-81 14:50:00 Test Item Value Reference Range Interpretation Comments CMV IgM (test code = CMV IgM) 0.3 [facility] WorthVimbmdnDOFBHQ1829-30-87 14:50:00 Test Item Value Reference Range Interpretation Comments VLDL (test code = VLDL) 36 1 [facility] WorthLtvfcaeEEQPUM7933-21-28 14:50:00 Test Item Value Reference Range Interpretation Comments LDL (Calculated) (test code = LDL 132 (Calculated)) [facility]manTapgaptLURXPF7903-04-00 14:50:00 Test Item Value Reference Range Interpretation Comments Chol (test code = Chol) 199 [facility] WorthJdxuuxoDEOMDW5256-34-96 14:50:00 Test Item Value Reference Range Interpretation Comments Trig (test code = Trig) 182 [facility]manRxymmbbQIYHJR3965-46-94 14:50:00 Test Item Value Reference Range Interpretation Comments HDL (test code = HDL) 31 [facility] WorthOzwylutJONHEV4672-37-61 14:50:00 Test Item Value Reference Range Interpretation Comments CHD Risk (test code = CHD Risk) 6.42 1 4.00-7.30 [facility]manMOLECULAR CAIIHRAVTT7252-27-16 14:50:00 Test Item Value Reference Range Interpretation Comments HBV DNA Log10 (test code = HBV DNA no gt Log10) [facility] DAXKVOPQTU3100-23-16 14:50:00 Test Item Value Reference Range Interpretation Comments Hep B PCR Qnt (test Not Detected (04/06/18 code = Hep B PCR Qnt) 8:50 AM) [facility] WorthannPARASITOLOGY - HQEEGDYU3888-71-18 14:50:00 Test Item Value Reference Range Interpretation Comments Strongyloides Antibodies (test code Negative = Strongyloides Antibodies) [facility] WorthannPARATHYROID OPOOKAF3247-70-62 14:50:00 Test Item Value Reference Range Interpretation Comments PTH Intact (test code = PTH Intact) 180.7 18.4-80.1 [facility] YZRZBSXSH2808-88-49 14:50:00 Test Item Value Reference Range Interpretation Comments Hgb A1C (test code = Hgb A1C) 6.5 [facility] LYNWVDMGT8820-60-31 14:50:00 Test Item Value Reference Range Interpretation Comments PSA (test code = PSA) 1.00 See_Comment [Auto mated message] The system which ge nerated this result transmit nicko reference range : <=4.00. The reference r carlos was not used to interpr et this result as adebayo l/abnormal. [facility] [id number] 14:50:00 Test Item Value Reference Range Interpretation Comments Nicotine Lvl (test code = None Detected Nicotine Lvl) [facility] [id number] 14:50:00 Test Item Value Reference Range Interpretation Comments Cotinine Lvl (test code = None Detected Cotinine Lvl) [facility] [id number] 14:50:00 Test Item Value Reference Range Interpretation Comments UA Urobilinogen (test code = UA <=1.0 mg/dL 0.1-1.0 Urobilinogen) [facility] [id number] 14:50:00 Test Item Value Reference Range Interpretation Comments UA Sq Epi (test code = UA Sq Epi) None [facility]en [facility] [id number] 14:50:00 Test Item Value Reference Range Interpretation Comments UA Turbidity (test code = Clear (04/06/18 8:50 UA Turbidity) AM) [facility] [id number] 14:50:00 Test Item Value Reference Range Interpretation Comments UA Color (test code = Yellow *NA*(04/06/18 8:50 UA Color) AM) [facility] [id number] 14:50:00 Test Item Value Reference Range Interpretation Comments UA pH (test code = UA pH) 5.5 1 5.0-8.0 [facility] [id number] 14:50:00 Test Item Value Reference Range Interpretation Comments UA Spec Grav (test code = UA Spec 1.009 1 Grav) [facility] [id number] 14:50:00 Test Item Value Reference Range Interpretation Comments UA WBC (test code = 1 See_Comment [Automa nicko message] The UA WBC) system which ge nerated this result transmit nicko reference range : <=5. The reference range was not used to interpr et this result as adebayo l/abnormal. [facility] AND [id number] 14:50:00 Test Item Value Reference Range Interpretation Comments UA Leuk Est (test Negative (04/06/18 8:50 code = UA Leuk Est) AM) [facility] AND [id number] 14:50:00 Test Item Value Reference Range Interpretation Comments UA Nitrite (test code Negative (04/06/18 8:50 = UA Nitrite) AM) [facility] AND [id number] 14:50:00 Test Item Value Reference Range Interpretation Comments UA Ketones (test code = UA Negative mg/dL Ketones) [facility] [id number] 14:50:00 Test Item Value Reference Range Interpretation Comments UA Glucose (test code = UA Negative mg/dL Glucose) [facility] AND [id number] 14:50:00 Test Item Value Reference Range Interpretation Comments UA Protein (test code = UA Protein) 100 mg/dL [facility] AND [id number] 14:50:00 Test Item Value Reference Range Interpretation Comments UA Blood (test code = Trace *ABN*(04/06/18 UA Blood) 8:50 AM) [facility] AND [id number] 14:50:00 Test Item Value Reference Range Interpretation Comments UA Bili (test code = Negative *NA*(04/06/18 UA Bili) 8:50 AM) [facility]2019-02-05 14:50:00 Test Item Value Reference Range Interpretation Comments U Microalb (test code = U Microalb) 638.0 [facility]2019-02-05 14:50:00 Test Item Value Reference Range Interpretation Comments U Protein (test code = U Protein) 117.7 [facility]2019-02-05 14:50:00 Test Item Value Reference Range Interpretation Comments U Prot/Creat (test code = U 0.78 1 Prot/Creat) [facility] [id number] 14:50:00 Test Item Value Reference Range Interpretation Comments U Creatinine (test code = U 151.00 Creatinine) [facility] [id number] 14:50:00 Test Item Value Reference Range Interpretation Comments Ferritin Lvl (test code = Ferritin Lvl) 213 22-275 [facility] [id number] 14:50:00 Test Item Value Reference Range Interpretation Comments UIBC (test code = UIBC) 261 110-370 [facility] [id number] 14:50:00 Test Item Value Reference Range Interpretation Comments % Satur Fe (test code = % Satur Fe) 15 12-57 [facility] [id number] 14:50:00 Test Item Value Reference Range Interpretation Comments Iron (test code = Iron) 46 45-160 [facility] [id number] 14:50:00 Test Item Value Reference Range Interpretation Comments TIBC (test code = TIBC) 307 228-428 [facility] [id number] 14:50:00 Test Item Value Reference Range Interpretation Comments OP ABORh Int (test code = OP ABORh Int) O POS [facility] [id number] 14:50:00 Test Item Value Reference Range Interpretation Comments Vitamin D, 25-OH, Total (test code = 36.8 30.0-100.0 Vitamin D, 25-OH, Total) [facility] [id number] 14:50:00 Test Item Value Reference Range Interpretation Comments Uric Acid (test code = Uric Acid) 7.3 3.8-8.0 [facility] [id number] 14:50:00 Test Item Value Reference Range Interpretation Comments Phosphorus (test code = Phosphorus) 3.4 2.5-4.5 [facility] [id number] 14:50:00 Test Item Value Reference Range Interpretation Comments Magnesium Lvl (test code = Magnesium 2.0 1.8-2.4 Lvl) [facility] [id number] 14:50:00 Test Item Value Reference Range Interpretation Comments C-Peptide (test code = C-Peptide) 8.17 0.48-5.05 [facility]2019-02-05 14:50:00 Test Item Value Reference Range Interpretation Comments A/G Ratio (test code = A/G Ratio) 0.9 1 0.7-1.6 [facility]2019-02-05 14:50:00 Test Item Value Reference Range Interpretation Comments B/C Ratio (test code = B/C Ratio) 9 1 6-25 [facility]2019-02-05 14:50:00 Test Item Value Reference Range Interpretation Comments AGAP (test code = AGAP) 12.4 10.0-20.0 [facility]2019-02-05 14:50:00 Test Item Value Reference Range Interpretation Comments Globulin (test code = Globulin) 4.2 2.7-4.2 [facility]2019-02-05 14:50:00 Test Item Value Reference Range Interpretation Comments eGFR (test code = eGFR) 14 [facility]2019-02-05 14:50:00 Test Item Value Reference Range Interpretation Comments ALT (test code = ALT) 12 See_Comment [Auto mated message] The system which ge nerated this result transmit nicko reference range : <=65. The reference range was not used to interpr et this result as adebayo l/abnormal. [facility]2019-02-05 14:50:00 Test Item Value Reference Range Interpretation Comments Alk Phos (test code = Alk Phos) 70 39-136 [facility]2019-02-05 14:50:00 Test Item Value Reference Range Interpretation Comments AST (test code = AST) 8 See_Comment [Auto mated message] The system which ge nerated this result transmit nicko reference range : <=37. The reference range was not used to interpr et this result as adebayo l/abnormal. [facility]2019-02-05 14:50:00 Test Item Value Reference Range Interpretation Comments Albumin Lvl (test code = Albumin Lvl) 3.7 3.5-5.0 [place] [id number] 14:50:00 Test Item Value Reference Range Interpretation Comments Bili Total (test code = Bili Total) 0.3 0.2-1.3 [facility]2019-02-05 14:50:00 Test Item Value Reference Range Interpretation Comments Glucose Lvl (test code = Glucose Lvl) 83 70-99 [facility]2019-02-05 14:50:00 Test Item Value Reference Range Interpretation Comments Sodium Lvl (test code = Sodium Lvl) 137 135-145 [facility]2019-02-05 14:50:00 Test Item Value Reference Range Interpretation Comments BUN (test code = BUN) 35 7-22 [facility]2019-02-05 14:50:00 Test Item Value Reference Range Interpretation Comments Creatinine Lvl (test code = Creatinine 4.10 0.50-1.40 Lvl) [facility]2019-02-05 14:50:00 Test Item Value Reference Range Interpretation Comments CO2 (test code = CO2) 25 24-32 [facility]2019-02-05 14:50:00 Test Item Value Reference Range Interpretation Comments Calcium Lvl (test code = Calcium Lvl) 9.7 8.5-10.5 [facility]2019-02-05 14:50:00 Test Item Value Reference Range Interpretation Comments Potassium Lvl (test code = Potassium 4.4 3.5-5.1 Lvl) [facility]2019-02-05 14:50:00 Test Item Value Reference Range Interpretation Comments Chloride Lvl (test code = Chloride Lvl) 104 95-109 [facility]2019-02-05 14:50:00 Test Item Value Reference Range Interpretation Comments Total Protein (test code = Total 7.9 6.4-8.4 Protein) [facility]2019-02-05 14:50:00 Test Item Value Reference Range Interpretation Comments Opiate Qnt (test code = Opiate Qnt) Negative [facility]2019-02-05 14:50:00 Test Item Value Reference Range Interpretation Comments Phencyclidine Scr (test code = Negative Phencyclidine Scr) [facility]2019-02-05 14:50:00 Test Item Value Reference Range Interpretation Comments Kaitlin Scr (test code = Kaitlin Scr) Negative [facility]2019-02-05 14:50:00 Test Item Value Reference Range Interpretation Comments Methadone Scr (test code = Methadone Negative Scr) [facility]2019-02-05 14:50:00 Test Item Value Reference Range Interpretation Comments Cocaine Scr (test code = Cocaine Negative Scr) [facility] [id number] 14:50:00 Test Item Value Reference Range Interpretation Comments Cannab Scr (test code = Cannab Scr) Negative [facility] [id number] 14:50:00 Test Item Value Reference Range Interpretation Comments Amph Scr (test code = Amph Scr) Negative [facility] [id number] 14:50:00 Test Item Value Reference Range Interpretation Comments Opiate Scr (test code = Opiate Scr) Positive [facility] [id number] 14:50:00 Test Item Value Reference Range Interpretation Comments 6-Acetylmor Scr (test code = Negative 6-Acetylmor Scr) [facility] [id number] 14:50:00 Test Item Value Reference Range Interpretation Comments Benzodiaz Scr (test code = Benzodiaz Negative Scr) [facility]mkldkxEKDBSLXWXT5246-30-15 14:50:00 Test Item Value Reference Range Interpretation Comments Basophils # (test code 0.1 See_Comment [Aut omated message] The = Basophils #) system which generated this result tra nsmitted reference range : <=0.2. The reference r carlos was not used to int erpret this result as normal/abnormal . [facility] SystemXzmtiuoMKYKAGFFAK4572-18-12 14:50:00 Test Item Value Reference Range Interpretation Comments Segs (test code = Segs) 68.2 45.0-75.0 [facility] [id number] 14:50:00 Test Item Value Reference Range Interpretation Comments Lymphocytes (test code = Lymphocytes) 20.5 20.0-40.0 [facility] [id number] 14:50:00 Test Item Value Reference Range Interpretation Comments Neutrophils # (test code = Neutrophils 6.0 1.5-8.1 #) [facility] SystemRtukqxqEJUSSHKLBG4021-32-33 14:50:00 Test Item Value Reference Range Interpretation Comments Basophils (test code = 0.6 See_Comment [Aut omated message] The Basophils) system which ge nerated this result tra nsmitted reference range : <=1.0. The reference r carlos was not used to int erpret this result as normal/abnormal . [facility] SystemPicuthfNJKTZQDPGB8780-00-46 14:50:00 Test Item Value Reference Range Interpretation Comments Lymphocytes # (test code = Lymphocytes 1.8 1.0-5.5 #) [facility] SystemLrbvkcgVDMLTJXWPL3944-59-52 14:50:00 Test Item Value Reference Range Interpretation Comments Eosinophils (test code = 3.2 See_Comment [A utomated message] The Eosinophils) system which ge nerated this result tra nsmitted reference range : <=4.0. The reference r carlos was not used to int erpret this result as normal/abnormal . [facility] SystemAtoipxiVBUQNUSWYN9540-12-51 14:50:00 Test Item Value Reference Range Interpretation Comments Monocytes (test code = Monocytes) 7.5 2.0-12.0 [facility] SystemHyrykiqMKMTIDRLHF4115-72-21 14:50:00 Test Item Value Reference Range Interpretation Comments Eosinophils # (test code 0.3 See_Comment [A utomated message] The = Eosinophils #) system whic h generated this result tra nsmitted reference range : <=0.5. The reference r carlos was not used to int erpret this result as normal/abnormal . [facility] SystemKbncvfeUSWGGTJHRW0494-06-29 14:50:00 Test Item Value Reference Range Interpretation Comments Monocytes # (test code 0.7 See_Comment [Aut omated message] The = Monocytes #) system which generated this result tra nsmitted reference range : <=0.8. The reference r carlos was not used to int erpret this result as normal/abnormal . [facility] SystemYqjgsseMTWVYRGJTB6312-29-90 14:50:00 Test Item Value Reference Range Interpretation Comments Hgb (test code = Hgb) 13.3 14.0-18.0 [facility] SystemVcwoqtlZTHCXEXUDB2473-73-89 14:50:00 Test Item Value Reference Range Interpretation Comments Hct (test code = Hct) 41.1 42.0-54.0 [facility] SystemVvndwxmXFBIDKWMYL5624-26-06 14:50:00 Test Item Value Reference Range Interpretation Comments MCV (test code = MCV) 88.4 80.0-94.0 [facility] SystemBqwmzcgKMYYTALIER5599-05-48 14:50:00 Test Item Value Reference Range Interpretation Comments MCH (test code = MCH) 28.7 pg 27.0-31.0 [facility] SystemPkaazecHBOBELODFK4489-81-39 14:50:00 Test Item Value Reference Range Interpretation Comments RBC (test code = RBC) 4.65 4.70-6.10 [facility] SystemUccitdvHVFRITACPV5039-97-91 14:50:00 Test Item Value Reference Range Interpretation Comments RDW (test code = RDW) 14.6 11.5-14.5 [facility] SystemMxjmxfnAINNYKRKMN3357-79-25 14:50:00 Test Item Value Reference Range Interpretation Comments MCHC (test code = MCHC) 32.5 32.0-36.0 [facility] SystemJvrepxjVLMXSJPWEM0278-28-88 14:50:00 Test Item Value Reference Range Interpretation Comments Platelet (test code = Platelet) 238 133-450 [facility] SystemUiwfmztKSUYYKHZQW8261-71-76 14:50:00 Test Item Value Reference Range Interpretation Comments MPV (test code = MPV) 9.0 7.4-10.4 [facility] SystemDyqkyguFMROMNXJSY8983-86-60 14:50:00 Test Item Value Reference Range Interpretation Comments WBC (test code = WBC) 8.8 3.7-10.4 [facility] SystemXdfxclsZCKOLNQACU8042-95-90 14:50:00 Test Item Value Reference Range Interpretation Comments INR (test code = INR) 0.96 1 0.85-1.17 [facility] SystemZhfacqhEJCENCTVFK9708-89-79 14:50:00 Test Item Value Reference Range Interpretation Comments PT (test code = PT) 12.6 s 12.0-14.7 [facility] SystemOvldudfTGUANITBRB1068-48-43 14:50:00 Test Item Value Reference Range Interpretation Comments PTT (test code = PTT) 34.7 s 22.9-35.8 [facility]WmsuvwwZKNPDBMOJQ9413-80-25 14:50:00 Test Item Value Reference Range Interpretation Comments Treponemal Ab (test code Non-Reactive = Treponemal Ab) *NA*(04/06/18 8:50 AM) [facility] HospitalUlkddxnEEZZNPYRIG5962-63-65 14:50:00 Test Item Value Reference Range Interpretation Comments Varicella IgM (test no gt See_Comment [Automa nicko message] The code = Varicella IgM) system which generated this result tra nsmitted reference range : <=0.90. The reference r carlos was not used to int erpret this result as normal/abnormal . [facility] HospitalQgqxsfpQFTDXGSCMY0873-19-25 14:50:00 Test Item Value Reference Range Interpretation Comments Varicella IgG (test code = Varicella no gt IgG) [facility]PhnjprsUJDUYLHNIY4999-08-79 14:50:00 Test Item Value Reference Range Interpretation Comments Hep Bs Ag (test code Negative *NA*(04/06/18 = Hep Bs Ag) 8:50 AM) [facility] HospitalZfkunxxBWAYEBGVXL3730-07-28 14:50:00 Test Item Value Reference Range Interpretation Comments HSV 1 IgG (test code = HSV 1 IgG) no gt [facility]HiqwzrzTPCKFMDJET5251-79-48 14:50:00 Test Item Value Reference Range Interpretation Comments HSV 2 IgG (test code = HSV 2 IgG) no gt [facility]FwyduqjKWBMBLULFQ9844-08-47 14:50:00 Test Item Value Reference Range Interpretation Comments Lambda Free Light Chains (test code = 66.41 5.70-26.30 Lambda Free Light Chains) [facility] HospitalUqhnqhfLXOJBJYGWP2915-38-73 14:50:00 Test Item Value Reference Range Interpretation Comments Ronda/Lambda Free Light Chains Ratio 1.66 0.26-1.65 (test code = Ronda/Lambda Free Light Chains Ratio) [facility] HospitalVirsgvhJRIFYTPAIH2403-38-37 14:50:00 Test Item Value Reference Range Interpretation Comments Ronda Free Light Chains (test code = 110.34 3.30-19.40 Ronda Free Light Chains) [facility]manBrzkzhcERVPEJFFTW3326-00-79 14:50:00 Test Item Value Reference Range Interpretation Comments Hep C Ab (test code = Negative *NA*(04/06/18 Hep C Ab) 8:50 AM) [facility] HospitalDajlauyHWQDNZUELW3444-43-60 14:50:00 Test Item Value Reference Range Interpretation Comments T-Spot.TB (test code Negative (04/06/18 8:50 = T-Spot.TB) AM) [facility] HospitalJlfnydcQWJAQQFDLD7835-96-64 14:50:00 Test Item Value Reference Range Interpretation Comments SPE Interp (test Serum protein code = SPE Interp) electrophoresis demonstrates a small peak (0.22 g/dL) in the gamma globulin distribution curve. Concurrent serum immunofixation demonstrates an IgM-kappa monoclonal immunoglobulin (see separate report). Total protein is within the reference range. Serum protein electrophoresis demonstrates otherwise normal distribution of the main protein fractions. The electronic medical record has been reviewed for relevant clinical information. I have personally reviewed the test results and concur with the resident's interpretation. CPT 92547-FP [facility]manLawvymtIMENBJJPDN9018-54-47 14:50:00 Test Item Value Reference Range Interpretation Comments Beta Glob (test code = Beta Glob) 0.99 0.50-1.15 [facility] HospitalKnkreudKBVTJLVJWW0708-30-53 14:50:00 Test Item Value Reference Range Interpretation Comments Gamma Glob (test code = Gamma Glob) 1.28 0.71-1.57 [facility] HospitalMvsdpybAWKPKGELVZ9542-67-91 14:50:00 Test Item Value Reference Range Interpretation Comments Tot Prot (SPE) (test code = Tot Prot 7.9 6.4-8.4 (SPE)) [facility] HospitalIhieqqtELIIWCLPOV5625-86-84 14:50:00 Test Item Value Reference Range Interpretation Comments Albumin (SPE) (test code = Albumin 4.25 3.57-5.55 (SPE)) [facility] HospitalVfaabtfGEOPVOWCJQ4589-83-41 14:50:00 Test Item Value Reference Range Interpretation Comments Gamma % (test code = Gamma %) 16.2 11.1-18.7 [facility] HospitalIuycpuiOCUZDRCVDE9321-64-04 14:50:00 Test Item Value Reference Range Interpretation Comments Alpha 1 Glob (test code = Alpha 1 Glob) 0.43 0.18-0.41 [facility] HospitalFjsqxpeFLZUEWAGDY9045-57-66 14:50:00 Test Item Value Reference Range Interpretation Comments Alpha 2 Glob (test code = Alpha 2 Glob) 0.96 0.45-1.00 [facility] HospitalJwemvhaGINCEMKYFJ5036-62-06 14:50:00 Test Item Value Reference Range Interpretation Comments Alpha 1 % (test code = Alpha 1 %) 5.4 2.8-4.9 [facility] HospitalGserpzfTZNTRILHFR8188-96-33 14:50:00 Test Item Value Reference Range Interpretation Comments Albumin % (test code = Albumin %) 53.8 55.8-66.1 [facility]MkpoyaeAAIZGLKIAJ0774-07-45 14:50:00 Test Item Value Reference Range Interpretation Comments Beta % (test code = Beta %) 12.5 7.8-13.7 [facility] HospitalWrmjyezZCOZSIYKTF7616-63-38 14:50:00 Test Item Value Reference Range Interpretation Comments Alpha 2 % (test code = Alpha 2 %) 12.1 7.0-11.9 [facility] HospitalYgyylirUNRJKQDWMM4120-96-40 14:50:00 Test Item Value Reference Range Interpretation Comments EBV VCA IgM (test code = EBV VCA IgM) no gt [facility] HospitalXyorbxiXRDHZELXBZ2735-87-35 14:50:00 Test Item Value Reference Range Interpretation Comments EBV VCA IgG (test code = EBV VCA IgG) no gt [facility] HospitalRkgsaliHYQJIJXNQS3121-67-10 14:50:00 Test Item Value Reference Range Interpretation Comments Hep Bs Ab (test code = Hep Bs Ab) 5.2 [facility] HospitalQtzyrooOWNDUFRCWW5291-03-07 14:50:00 Test Item Value Reference Range Interpretation Comments Hep B Core Ab (test Negative *NA*(04/06/18 code = Hep B Core Ab) 8:50 AM) [facility] HospitalEkjjrczXQCVOMLSGZ7887-89-72 14:50:00 Test Item Value Reference Range Interpretation Comments HIV Ag/Ab 4th Gen Negative *NA*(04/06/18 (test code = HIV 8:50 AM) Ag/Ab 4th Gen) [facility] HospitalMkexqbiMFDLNHOYUY0841-59-71 14:50:00 Test Item Value Reference Range Interpretation Comments KAREN Ser Interp The immunofixation (test code = KAREN electrophoresis results Ser Interp) (see pattern description) are consistent with monoclonal gammopathy of IgM-kappa isotype. Preservation of diffusely staining immunoreactivity indicates that the production of polyclonal immunoglobulins is not suppressed. Relevant medical information in the EMR was reviewed. I have personally reviewed the test results and concur with the resident's interpretation. CPT 69454-VU [facility] HospitalTqgklyqUBHKVCNYBS6376-10-47 14:50:00 Test Item Value Reference Range Interpretation Comments KAREN Ser Pattern A distinct monoclonal (test code = KAREN Ser band is present in the Pattern) IgM izabella with a corresponding faint band in the kappa light chain izabella. The polyclonal gamma globulin background is preserved in all lanes. [facility] HospitalLtvidszJPBWFCPAYQ9544-13-52 14:50:00 Test Item Value Reference Range Interpretation Comments CMV IgG (test code = Reactive *ABN*(04/06/18 CMV IgG) 8:50 AM) [facility] HospitalLvkwcvuOQVZAVOSTI3979-66-58 14:50:00 Test Item Value Reference Range Interpretation Comments CMV IgM (test code = CMV IgM) 0.3 [facility]BawpzwrQXHULC7781-94-12 14:50:00 Test Item Value Reference Range Interpretation Comments VLDL (test code = VLDL) [address] [facility] HospitalOxmxpisQVBQKB4086-79-18 14:50:00 Test Item Value Reference Range Interpretation Comments LDL (Calculated) (test code = LDL 132 (Calculated)) [facility]JceniaiIOGTWX5637-16-36 14:50:00 Test Item Value Reference Range Interpretation Comments Chol (test code = Chol) 199 [facility]manHsvcsnpBQNVRM9788-04-19 14:50:00 Test Item Value Reference Range Interpretation Comments Trig (test code = Trig) 182 [facility]manAvbrroqJSXING6648-69-13 14:50:00 Test Item Value Reference Range Interpretation Comments HDL (test code = HDL) 31 [facility]manTgvaptgALEHQT6294-28-76 14:50:00 Test Item Value Reference Range Interpretation Comments CHD Risk (test code = CHD Risk) 6.42 1 4.00-7.30 [facility] FBCSVYLHQA1164-86-29 14:50:00 Test Item Value Reference Range Interpretation Comments HBV DNA Log10 (test code = HBV DNA no gt Log10) [facility] WCOSIFOZJZ1023-78-14 14:50:00 Test Item Value Reference Range Interpretation Comments Hep B PCR Qnt (test Not Detected (04/06/18 code = Hep B PCR Qnt) 8:50 AM) [facility] - FCPUMTXB9889-76-32 14:50:00 Test Item Value Reference Range Interpretation Comments Strongyloides Antibodies (test code Negative = Strongyloides Antibodies) [facility]manPARATHYROID VYXWYVN4148-46-23 14:50:00 Test Item Value Reference Range Interpretation Comments PTH Intact (test code = PTH Intact) 180.7 18.4-80.1 [facility] EWZXRVBRS1495-35-02 14:50:00 Test Item Value Reference Range Interpretation Comments Hgb A1C (test code = Hgb A1C) 6.5 [facility] UGSSCHMXU4808-88-10 14:50:00 Test Item Value Reference Range Interpretation Comments PSA (test code = PSA) 1.00 See_Comment [Auto mated message] The system which ge nerated this result transmit nicko reference range : <=4.00. The reference r carlos was not used to interpr et this result as adebayo l/abnormal. [facility] NNPRSTMOH4624-12-22 14:50:00 Test Item Value Reference Range Interpretation Comments Nicotine Lvl (test code = None Detected Nicotine Lvl) [facility] [id number] 14:50:00 Test Item Value Reference Range Interpretation Comments Cotinine Lvl (test code = None Detected Cotinine Lvl) [facility] AND [id number] 14:50:00 Test Item Value Reference Range Interpretation Comments UA Urobilinogen (test code = UA <=1.0 mg/dL 0.1-1.0 Urobilinogen) [facility] AND [id number] 14:50:00 Test Item Value Reference Range Interpretation Comments UA Sq Epi (test code = UA Sq Epi) None Seen [facility] AND [id number] 14:50:00 Test Item Value Reference Range Interpretation Comments UA Turbidity (test code = Clear (04/06/18 8:50 UA Turbidity) AM) [facility] AND [id number] 14:50:00 Test Item Value Reference Range Interpretation Comments UA Color (test code = Yellow *NA*(04/06/18 8:50 UA Color) AM) [facility] AND [id number] 14:50:00 Test Item Value Reference Range Interpretation Comments UA pH (test code = UA pH) 5.5 1 5.0-8.0 [facility] AND [id number] 14:50:00 Test Item Value Reference Range Interpretation Comments UA Spec Grav (test code = UA Spec 1.009 1 Grav) [facility] AND [id number] 14:50:00 Test Item Value Reference Range Interpretation Comments UA WBC (test code = 1 See_Comment [Automa nicko message] The UA WBC) system which ge nerated this result transmit nicko reference range : <=5. The reference range was not used to interpr et this result as adebayo l/abnormal. [facility] AND [id number] 14:50:00 Test Item Value Reference Range Interpretation Comments UA Leuk Est (test Negative (04/06/18 8:50 code = UA Leuk Est) AM) [facility] AND [id number] 14:50:00 Test Item Value Reference Range Interpretation Comments UA Nitrite (test code Negative (04/06/18 8:50 = UA Nitrite) AM) [facility] AND [id number] 14:50:00 Test Item Value Reference Range Interpretation Comments UA Ketones (test code = UA Negative mg/dL Ketones) [facility] AND [id number] 14:50:00 Test Item Value Reference Range Interpretation Comments UA Glucose (test code = UA Negative mg/dL Glucose) [facility] AND [id number] 14:50:00 Test Item Value Reference Range Interpretation Comments UA Protein (test code = UA Protein) 100 mg/dL [facility] AND [id number] 14:50:00 Test Item Value Reference Range Interpretation Comments UA Blood (test code = Trace *ABN*(04/06/18 UA Blood) 8:50 AM) [facility] AND [id number] 14:50:00 Test Item Value Reference Range Interpretation Comments UA Bili (test code = Negative *NA*(04/06/18 UA Bili) 8:50 AM) [facility]2019-02-05 14:50:00 Test Item Value Reference Range Interpretation Comments U Microalb (test code = U Microalb) 638.0 [facility]2019-02-05 14:50:00 Test Item Value Reference Range Interpretation Comments U Protein (test code = U Protein) 117.7 [facility]2019-02-05 14:50:00 Test Item Value Reference Range Interpretation Comments U Prot/Creat (test code = U 0.78 1 Prot/Creat) [facility]2019-02-05 14:50:00 Test Item Value Reference Range Interpretation Comments U Creatinine (test code = U 151.00 Creatinine) [facility] AND [id number] 16:40:00 Test Item Value Reference Range Interpretation Comments UA Urobilinogen (test code = UA 0.2 0.1-1.0 Urobilinogen) [facility] AND [id number] 16:40:00 Test Item Value Reference Range Interpretation Comments UA Nitrite (test code Negative (11/03/16 11:40 = UA Nitrite) AM) [facility] AND [id number] 16:40:00 Test Item Value Reference Range Interpretation Comments UA Leuk Est (test Negative (11/03/16 11:40 code = UA Leuk Est) AM) [facility] AND [id number] 16:40:00 Test Item Value Reference Range Interpretation Comments UA pH (test code = UA pH) 5.5 1 5.0-8.0 [facility] AND [id number] 16:40:00 Test Item Value Reference Range Interpretation Comments UA Protein (test code = UA Protein) 100 mg/dL [facility] AND [id number] 16:40:00 Test Item Value Reference Range Interpretation Comments UA Glucose (test code Negative (11/03/16 11:40 = UA Glucose) AM) [facility] AND [id number] 16:40:00 Test Item Value Reference Range Interpretation Comments UA Blood (test code = Moderate *ABN*(11/03/16 UA Blood) 11:40 AM) [facility] AND [id number] 16:40:00 Test Item Value Reference Range Interpretation Comments UA Ketones (test code Negative *NA*(11/03/16 = UA Ketones) 11:40 AM) [facility] AND [id number] 16:40:00 Test Item Value Reference Range Interpretation Comments UA Bili (test code = Negative *NA*(11/03/16 UA Bili) 11:40 AM) [facility] AND [id number] 16:40:00 Test Item Value Reference Range Interpretation Comments UA Color (test code = Yellow *NA*(11/03/16 UA Color) 11:40 AM) [facility] AND [id number] 16:40:00 Test Item Value Reference Range Interpretation Comments UA Spec Grav (test code = UA Spec 1.020 1 Grav) [facility] AND [id number] 16:40:00 Test Item Value Reference Range Interpretation Comments UA Turbidity (test code = Clear (11/03/16 11:40 UA Turbidity) AM) [facility] AND [id number] 16:40:00 Test Item Value Reference Range Interpretation Comments UA Sq Epi (test code = UA Sq Epi) Rare /LPF [facility] AND [id number] 16:40:00 Test Item Value Reference Range Interpretation Comments UA Bacteria (test code = UA Occasional /HPF Bacteria) [facility] AND [id number] 16:40:00 Test Item Value Reference Range Interpretation Comments UA WBC (test code = UA WBC) 0-2 /HPF [facility] AND [id number] 16:40:00 Test Item Value Reference Range Interpretation Comments UA RBC (test code = 0-2 /HPF See_Comment [Automa nicko message] The UA RBC) system which ge nerated this result tra nsmitted reference range : <=2. The reference range was not used to interpr et this result as adebayo l/abnormal. [facility] AND [id number] 16:40:00 Test Item Value Reference Range Interpretation Comments UA Hyal Cast 0-2 (11/03/16 See_Comment [Automated mes karon] (test code = UA 11:40 AM) The system w [employer] Hyal Cast) generated this result transmitted ref erence range: <=2. The reference range was not used to int erpret this result as normal/abnormal . [facility] AND [id number] 16:40:00 Test Item Value Reference Range Interpretation Comments UA Turbidity (test code = Clear (11/03/16 11:40 UA Turbidity) AM) [facility] [id number] 16:40:00 Test Item Value Reference Range Interpretation Comments UA Sq Epi (test code = UA Sq Epi) [facility] /[facility]F [facility] [id number] 16:40:00 Test Item Value Reference Range Interpretation Comments UA Bacteria (test code = UA Occasional /HPF Bacteria) [facility] AND [id number] 16:40:00 Test Item Value Reference Range Interpretation Comments UA WBC (test code = UA WBC) 0-2 /HPF [facility] [id number] 16:40:00 Test Item Value Reference Range Interpretation Comments UA RBC (test code = 0-2 /HPF See_Comment [Automa nicko message] The UA RBC) system which ge nerated this result tra nsmitted reference range : <=2. The reference range was not used to interpr et this result as adebayo l/abnormal. [facility] AND [id number] 16:40:00 Test Item Value Reference Range Interpretation Comments UA Hyal Cast 0-2 (11/03/16 See_Comment [Automated mes karon] (test code = UA 11:40 AM) The system w [employer] Hyal Cast) generated this result transmitted ref erence range: <=2. The reference range was not used to int erpret this result as normal/abnormal . [facility] AND [id number] 16:40:00 Test Item Value Reference Range Interpretation Comments UA Urobilinogen (test code = UA 0.2 0.1-1.0 Urobilinogen) [facility] AND [id number] 16:40:00 Test Item Value Reference Range Interpretation Comments UA Nitrite (test code Negative (11/03/16 11:40 = UA Nitrite) AM) [facility] AND [id number] 16:40:00 Test Item Value Reference Range Interpretation Comments UA Leuk Est (test Negative (11/03/16 11:40 code = UA Leuk Est) AM) [facility] AND [id number] 16:40:00 Test Item Value Reference Range Interpretation Comments UA pH (test code = UA pH) 5.5 1 5.0-8.0 [facility] AND [id number] 16:40:00 Test Item Value Reference Range Interpretation Comments UA Protein (test code = UA Protein) 100 mg/dL [facility] AND [id number] 16:40:00 Test Item Value Reference Range Interpretation Comments UA Glucose (test code Negative (11/03/16 11:40 = UA Glucose) AM) [facility] AND [id number] 16:40:00 Test Item Value Reference Range Interpretation Comments UA Blood (test code = Moderate *ABN*(11/03/16 UA Blood) 11:40 AM) [facility] AND [id number] 16:40:00 Test Item Value Reference Range Interpretation Comments UA Ketones (test code Negative *NA*(11/03/16 = UA Ketones) 11:40 AM) [facility] AND [id number] 16:40:00 Test Item Value Reference Range Interpretation Comments UA Bili (test code = Negative *NA*(11/03/16 UA Bili) 11:40 AM) [facility] AND [id number] 16:40:00 Test Item Value Reference Range Interpretation Comments UA Color (test code = Yellow *NA*(11/03/16 UA Color) 11:40 AM) [facility] AND [id number] 16:40:00 Test Item Value Reference Range Interpretation Comments UA Spec Grav (test code = UA Spec 1.020 1 Grav) [facility] [id number] 15:41:00 Test Item Value Reference Range Interpretation Comments Troponin-I (test code no gt See_Comment [Auto mated message] The = Troponin-I) system which g enerated this result transmit nicko reference range : <=0.40. The reference r carlos was not used to interpr et this result as adebayo l/abnormal. [facility] [id number] 15:41:00 Test Item Value Reference Range Interpretation Comments Magnesium Lvl (test code = Magnesium 1.5 1.8-2.4 Lvl) [facility] [id number] 15:41:00 Test Item Value Reference Range Interpretation Comments Phosphorus (test code = Phosphorus) 2.0 2.5-4.5 [facility] [id number] 15:41:00 Test Item Value Reference Range Interpretation Comments eGFR (test code = eGFR) 23 [facility] [id number] 15:41:00 Test Item Value Reference Range Interpretation Comments ASPARTATE TRANSAMINASE 11 See_Comment [Aut omated message] (test code = ASPARTATE The s ystem which TRANSAMINASE) generated this result transmitted ref erence range: <=37. Th e reference range was not used to interpr et this result as normal/abnormal . [facility] [id number] 15:41:00 Test Item Value Reference Range Interpretation Comments Bili Total (test code = Bili Total) 0.5 0.2-1.3 [facility] [id number] 15:41:00 Test Item Value Reference Range Interpretation Comments Total Protein (test code = Total 8.3 6.4-8.4 Protein) [facility] [id number] 15:41:00 Test Item Value Reference Range Interpretation Comments CO2 (test code = CO2) 22 24-32 [facility] [id number] 15:41:00 Test Item Value Reference Range Interpretation Comments Calcium Lvl (test code = Calcium Lvl) 8.7 8.5-10.5 [facility] [id number] 15:41:00 Test Item Value Reference Range Interpretation Comments Potassium Lvl (test code = Potassium 3.9 3.5-5.1 Lvl) [facility]2017-09-04 15:41:00 Test Item Value Reference Range Interpretation Comments Chloride Lvl (test code = Chloride Lvl) 108 95-109 [facility]2017-09-04 15:41:00 Test Item Value Reference Range Interpretation Comments Creatinine Lvl (test code = Creatinine 2.82 0.50-1.40 Lvl) [facility]2017-09-04 15:41:00 Test Item Value Reference Range Interpretation Comments Sodium Lvl (test code = Sodium Lvl) 139 135-145 [facility]2017-09-04 15:41:00 Test Item Value Reference Range Interpretation Comments BUN (test code = BUN) 30 7-22 [facility]2017-09-04 15:41:00 Test Item Value Reference Range Interpretation Comments Glucose Lvl (test code = Glucose Lvl) 137 70-99 [facility]2017-09-04 15:41:00 Test Item Value Reference Range Interpretation Comments Albumin Lvl (test code = Albumin Lvl) 3.6 3.5-5.0 [facility]2017-09-04 15:41:00 Test Item Value Reference Range Interpretation Comments Alk Phos (test code = Alk Phos) 73 39-136 [facility]2017-09-04 15:41:00 Test Item Value Reference Range Interpretation Comments ALANINE AMINOTRANSFERASE 16 See_Comment [A utomated message] (test code = ALANINE The sys tem which AMINOTRANSFERASE) generated this result transmitted ref erence range: <=65. Th e reference range was not used to int erpret this result as normal/abnormal . [facility]2017-09-04 15:41:00 Test Item Value Reference Range Interpretation Comments A/G Ratio (test code = A/G Ratio) 0.8 0.7-1.6 [facility]2017-09-04 15:41:00 Test Item Value Reference Range Interpretation Comments B/C Ratio (test code = B/C Ratio) 11 6-25 [facility]2017-09-04 15:41:00 Test Item Value Reference Range Interpretation Comments Globulin (test code = Globulin) 4.7 2.7-4.2 [facility]2017-09-04 15:41:00 Test Item Value Reference Range Interpretation Comments AGAP (test code = AGAP) 12.9 10.0-20.0 [facility]2017-09-04 15:41:00 Test Item Value Reference Range Interpretation Comments Lipase Lvl (test code = Lipase Lvl) 144 73-393 [id number] 15:41:00 Test Item Value Reference Range Interpretation Comments Segs (test code = Segs) 75.6 45.0-75.0 [facility] [id number] 15:41:00 Test Item Value Reference Range Interpretation Comments Basophils # (test code 0.1 See_Comment [Aut omated message] The = Basophils #) system which generated this result tra nsmitted reference range : <=0.2. The reference r carlos was not used to int erpret this result as normal/abnormal . [facility] [id number] 15:41:00 Test Item Value Reference Range Interpretation Comments Monocytes # (test code 0.9 See_Comment [Aut omated message] The = Monocytes #) system which generated this result tra nsmitted reference range : <=0.8. The reference r carlos was not used to int erpret this result as normal/abnormal . [facility] [id number] 15:41:00 Test Item Value Reference Range Interpretation Comments Eosinophils # (test code 0.2 See_Comment [A utomated message] The = Eosinophils #) system wh h generated this result tra nsmitted reference range : <=0.5. The reference r carlos was not used to int erpret this result as normal/abnormal . [facility] [id number] 15:41:00 Test Item Value Reference Range Interpretation Comments Eosinophils (test code = 1.8 See_Comment [A utomated message] The Eosinophils) system which ge nerated this result tra nsmitted reference range : <=4.0. The reference r carlos was not used to int erpret this result as normal/abnormal . [facility] SystemZenzppcCVPUVXFQSL2616-09-76 15:41:00 Test Item Value Reference Range Interpretation Comments Basophils (test code = 0.6 See_Comment [Aut omated message] The Basophils) system which ge nerated this result tra nsmitted reference range : <=1.0. The reference r carlos was not used to int erpret this result as normal/abnormal . [facility] Syst[id number] 15:41:00 Test Item Value Reference Range Interpretation Comments Lymphocytes (test code = Lymphocytes) 14.5 20.0-40.0 [facility] SystemFfaenzrGRSTTPYVCV3336-02-61 15:41:00 Test Item Value Reference Range Interpretation Comments Monocytes (test code = Monocytes) 7.5 2.0-12.0 [facility] SystemTfvrwoxBWFAKQDBIU6016-13-96 15:41:00 Test Item Value Reference Range Interpretation Comments Segs-Bands # (test code = Segs-Bands #) 9.4 1.5-8.1 [facility] SystemWxxcwyhVNAAWVQVGO8125-41-02 15:41:00 Test Item Value Reference Range Interpretation Comments Lymphocytes # (test code = Lymphocytes 1.8 1.0-5.5 #) [facility] [id number] 15:41:00 Test Item Value Reference Range Interpretation Comments MCV (test code = MCV) 88.5 80.0-94.0 [facility] SystemZgmehweNBRRBTYLRX1549-46-98 15:41:00 Test Item Value Reference Range Interpretation Comments MCH (test code = MCH) 29.3 pg 27.0-31.0 [facility] SystemZdxjcraBZPOOQGUUN7599-08-05 15:41:00 Test Item Value Reference Range Interpretation Comments Hct (test code = Hct) 40.7 42.0-54.0 [facility] SystemPtnvdkgPFDNAPWTPL9579-88-30 15:41:00 Test Item Value Reference Range Interpretation Comments MCHC (test code = MCHC) 33.2 32.0-36.0 [facility] SystemRvymcheVMXGWNXDLG3677-31-28 15:41:00 Test Item Value Reference Range Interpretation Comments RDW (test code = RDW) 15.1 11.5-14.5 [facility] SystemFmnwjuuSGJCYNDVLY2260-42-99 15:41:00 Test Item Value Reference Range Interpretation Comments Hgb (test code = Hgb) 13.5 14.0-18.0 [facility] SystemXrvbsksPWXZRKCUAX4810-86-85 15:41:00 Test Item Value Reference Range Interpretation Comments WBC X 10x3 (test code = WBC X 10x3) 12.5 3.7-10.4 [facility] SystemDymgiwfEMTTPUEITZ4930-00-81 15:41:00 Test Item Value Reference Range Interpretation Comments RBC X 10x6 (test code = RBC X 10x6) 4.60 4.70-6.10 [facility]gazjmuVPVIOYKDPQ2721-85-20 15:41:00 Test Item Value Reference Range Interpretation Comments MPV (test code = MPV) 8.7 7.4-10.4 [id number] 15:41:00 Test Item Value Reference Range Interpretation Comments Platelet (test code = Platelet) 278 133-450 [facility] [id number] 15:41:00 Test Item Value Reference Range Interpretation Comments Troponin-I (test code no gt See_Comment [Auto mated message] The = Troponin-I) system which g enerated this result transmit nicko reference range : <=0.40. The reference r carlos was not used to interpr et this result as adebayo l/abnormal. [facility] [id number] 15:41:00 Test Item Value Reference Range Interpretation Comments Magnesium Lvl (test code = Magnesium 1.5 1.8-2.4 Lvl) [facility] [id number] 15:41:00 Test Item Value Reference Range Interpretation Comments Phosphorus (test code = Phosphorus) 2.0 2.5-4.5 [facility] [id number] 15:41:00 Test Item Value Reference Range Interpretation Comments eGFR (test code = eGFR) 23 [facility] [id number] 15:41:00 Test Item Value Reference Range Interpretation Comments ASPARTATE TRANSAMINASE 11 See_Comment [Aut omated message] (test code = ASPARTATE The s ystem which TRANSAMINASE) generated this result transmitted ref erence range: <=37. Th e reference range was not used to interpr et this result as normal/abnormal . [facility] zanda [id number] 15:41:00 Test Item Value Reference Range Interpretation Comments Bili Total (test code = Bili Total) 0.5 0.2-1.3 [facility] [id number] 15:41:00 Test Item Value Reference Range Interpretation Comments Total Protein (test code = Total 8.3 6.4-8.4 Protein) [facility] [id number] 15:41:00 Test Item Value Reference Range Interpretation Comments CO2 (test code = CO2) 22 24-32 [facility]2017-09-04 15:41:00 Test Item Value Reference Range Interpretation Comments Calcium Lvl (test code = Calcium Lvl) 8.7 8.5-10.5 [facility]2017-09-04 15:41:00 Test Item Value Reference Range Interpretation Comments Potassium Lvl (test code = Potassium 3.9 3.5-5.1 Lvl) [facility]2017-09-04 15:41:00 Test Item Value Reference Range Interpretation Comments Chloride Lvl (test code = Chloride Lvl) 108 95-109 [facility]2017-09-04 15:41:00 Test Item Value Reference Range Interpretation Comments Creatinine Lvl (test code = Creatinine 2.82 0.50-1.40 Lvl) [facility]2017-09-04 15:41:00 Test Item Value Reference Range Interpretation Comments Sodium Lvl (test code = Sodium Lvl) 139 135-145 [facility]2017-09-04 15:41:00 Test Item Value Reference Range Interpretation Comments BUN (test code = BUN) 30 7-22 [facility]2017-09-04 15:41:00 Test Item Value Reference Range Interpretation Comments Glucose Lvl (test code = Glucose Lvl) 137 70-99 [facility]2017-09-04 15:41:00 Test Item Value Reference Range Interpretation Comments Albumin Lvl (test code = Albumin Lvl) 3.6 3.5-5.0 [facility]2017-09-04 15:41:00 Test Item Value Reference Range Interpretation Comments Alk Phos (test code = Alk Phos) 73 39-136 [facility]2017-09-04 15:41:00 Test Item Value Reference Range Interpretation Comments ALANINE AMINOTRANSFERASE 16 See_Comment [A utomated message] (test code = ALANINE The sys tem which AMINOTRANSFERASE) generated this result transmitted ref erence range: <=65. Th e reference range was not used to int erpret this result as normal/abnormal . [facility]2017-09-04 15:41:00 Test Item Value Reference Range Interpretation Comments A/G Ratio (test code = A/G Ratio) 0.8 0.7-1.6 [facility]2017-09-04 15:41:00 Test Item Value Reference Range Interpretation Comments B/C Ratio (test code = B/C Ratio) 11 6-25 [facility]2017-09-04 15:41:00 Test Item Value Reference Range Interpretation Comments Globulin (test code = Globulin) 4.7 2.7-4.2 [facility]2017-09-04 15:41:00 Test Item Value Reference Range Interpretation Comments AGAP (test code = AGAP) 12.9 10.0-20.0 [facility]2017-09-04 15:41:00 Test Item Value Reference Range Interpretation Comments Lipase Lvl (test code = Lipase Lvl) 144 73-393 [facility] SystemSjvrvxxGESDHMNZHX9158-81-96 15:41:00 Test Item Value Reference Range Interpretation Comments Segs (test code = Segs) 75.6 45.0-75.0 [facility] SystemVaslragHDDUMFBVIS0453-28-69 15:41:00 Test Item Value Reference Range Interpretation Comments Basophils # (test code 0.1 See_Comment [Aut omated message] The = Basophils #) system which generated this result tra nsmitted reference range : <=0.2. The reference r carlos was not used to int erpret this result as normal/abnormal . [facility] SystemNmedexkQANAVMISKI6436-23-19 15:41:00 Test Item Value Reference Range Interpretation Comments Monocytes # (test code 0.9 See_Comment [Aut omated message] The = Monocytes #) system which generated this result tra nsmitted reference range : <=0.8. The reference r carlos was not used to int erpret this result as normal/abnormal . [facility] SystemZobmvxrKAOTISBAVP5709-57-54 15:41:00 Test Item Value Reference Range Interpretation Comments Eosinophils # (test code 0.2 See_Comment [A utomated message] The = Eosinophils #) system whic h generated this result tra nsmitted reference range : <=0.5. The reference r carlos was not used to int erpret this result as normal/abnormal . [facility] SystemWwfkfllKKVUQJOYKC0659-78-18 15:41:00 Test Item Value Reference Range Interpretation Comments Eosinophils (test code = 1.8 See_Comment [A utomated message] The Eosinophils) system which ge nerated this result tra nsmitted reference range : <=4.0. The reference r carlos was not used to int erpret this result as normal/abnormal . [facility] SystemTguvehsNYUPKEFYAQ2811-10-53 15:41:00 Test Item Value Reference Range Interpretation Comments Basophils (test code = 0.6 See_Comment [Aut omated message] The Basophils) system which ge nerated this result tra nsmitted reference range : <=1.0. The reference r carlos was not used to int erpret this result as normal/abnormal . [facility] SystemDhcyqzrTDKZPGQSDK0410-02-54 15:41:00 Test Item Value Reference Range Interpretation Comments Lymphocytes (test code = Lymphocytes) 14.5 20.0-40.0 [facility] SystemGgpqnqlNQHVLTYLCJ9085-69-71 15:41:00 Test Item Value Reference Range Interpretation Comments Monocytes (test code = Monocytes) 7.5 2.0-12.0 [facility] SystemEimrtphUDOXDZKCYI0256-86-23 15:41:00 Test Item Value Reference Range Interpretation Comments Segs-Bands # (test code = Segs-Bands #) 9.4 1.5-8.1 [facility] SystemEhbcempZKWABPWAZU1616-45-51 15:41:00 Test Item Value Reference Range Interpretation Comments Lymphocytes # (test code = Lymphocytes 1.8 1.0-5.5 #) [facility] SystemMaegjsrANRPEQIXMJ0107-04-20 15:41:00 Test Item Value Reference Range Interpretation Comments MCV (test code = MCV) 88.5 80.0-94.0 [facility] SystemWymnxntMHGSVIDLAV9952-68-03 15:41:00 Test Item Value Reference Range Interpretation Comments MCH (test code = MCH) 29.3 pg 27.0-31.0 [facility] SystemDiwqztbBXUHLCGWYV6093-75-11 15:41:00 Test Item Value Reference Range Interpretation Comments Hct (test code = Hct) 40.7 42.0-54.0 [facility] SystemYbbjqqgPVJAFMCCXB3275-01-73 15:41:00 Test Item Value Reference Range Interpretation Comments MCHC (test code = MCHC) 33.2 32.0-36.0 [facility] SystemJhmxdjjMYYTMWNPPX9135-84-29 15:41:00 Test Item Value Reference Range Interpretation Comments RDW (test code = RDW) 15.1 11.5-14.5 [facility] SystemQsrxztbEIXBMXRTZB3176-36-70 15:41:00 Test Item Value Reference Range Interpretation Comments Hgb (test code = Hgb) 13.5 14.0-18.0 [facility] SystemJktkrswYVCOOYSZRZ9463-51-51 15:41:00 Test Item Value Reference Range Interpretation Comments WBC X 10x3 (test code = WBC X 10x3) 12.5 3.7-10.4 [facility] SystemTtlcgipTXGYTEWYOQ7072-99-82 15:41:00 Test Item Value Reference Range Interpretation Comments RBC X 10x6 (test code = RBC X 10x6) 4.60 4.70-6.10 [facility] SystemPyjcidsAESUWNOLCF8836-18-71 15:41:00 Test Item Value Reference Range Interpretation Comments MPV (test code = MPV) 8.7 7.4-10.4 [facility] SystemVktehduENYFNKTXNB8804-50-11 15:41:00 Test Item Value Reference Range Interpretation Comments Platelet (test code = Platelet) 278 133-450 [facility]2016-07-11 18:55:00 Test Item Value Reference Range Interpretation Comments Alk Phos (test code = Alk Phos) 60 39-136 [facility]2016-07-11 18:55:00 Test Item Value Reference Range Interpretation Comments BUN (test code = BUN) 31 7-22 [facility]2016-07-11 18:55:00 Test Item Value Reference Range Interpretation Comments Glucose Lvl (test code = Glucose Lvl) 81 70-99 [facility]2016-07-11 18:55:00 Test Item Value Reference Range Interpretation Comments Bili Total (test code = Bili Total) 0.4 0.2-1.3 [facility]2016-07-11 18:55:00 Test Item Value Reference Range Interpretation Comments Total Protein (test code = Total 7.4 6.4-8.4 Protein) [facility]2016-07-11 18:55:00 Test Item Value Reference Range Interpretation Comments Calcium Lvl (test code = Calcium Lvl) 8.5 8.5-10.5 [facility]2016-07-11 18:55:00 Test Item Value Reference Range Interpretation Comments ALANINE AMINOTRANSFERASE 15 See_Comment [A utomated message] (test code = ALANINE The sys tem which AMINOTRANSFERASE) generated this result transmitted ref erence range: <=65. Th e reference range was not used to int erpret this result as normal/abnormal . [facility]2016-07-11 18:55:00 Test Item Value Reference Range Interpretation Comments ASPARTATE TRANSAMINASE 12 See_Comment [Aut omated message] (test code = ASPARTATE The s ystem which TRANSAMINASE) generated this result transmitted ref erence range: <=37. Th e reference range was not used to interpr et this result as normal/abnormal . [facility] SystemVuomfnvOYXCSXZQJM8710-22-09 18:55:00 Test Item Value Reference Range Interpretation Comments Eosinophils (test code = 2.6 See_Comment [A utomated message] The Eosinophils) system which ge nerated this result tra nsmitted reference range : <=4.0. The reference r carlos was not used to int erpret this result as normal/abnormal . [facility] SystemWyafzcoUYYUCSLBGE9050-85-63 18:55:00 Test Item Value Reference Range Interpretation Comments Lymphocytes (test code = Lymphocytes) 23.1 20.0-40.0 [facility] SystemZcwbpctECKXOWEHHQ9994-17-87 18:55:00 Test Item Value Reference Range Interpretation Comments Monocytes (test code = Monocytes) 9.4 2.0-12.0 [facility] SystemAqrbgljZUZMYXTRFO1979-86-99 18:55:00 Test Item Value Reference Range Interpretation Comments Eosinophils # (test code 0.2 See_Comment [A utomated message] The = Eosinophils #) system whic h generated this result tra nsmitted reference range : <=0.5. The reference r carlos was not used to int erpret this result as normal/abnormal . [facility] SystemLulmyhdJPRLRLOZMW1868-14-34 18:55:00 Test Item Value Reference Range Interpretation Comments Basophils # (test code 0.1 See_Comment [Aut omated message] The = Basophils #) system which generated this result tra nsmitted reference range : <=0.2. The reference r carlos was not used to int erpret this result as normal/abnormal . [facility] SystemCkoqbqrTWGZCUMGES7964-71-15 18:55:00 Test Item Value Reference Range Interpretation Comments Basophils (test code = 0.8 See_Comment [Aut omated message] The Basophils) system which ge nerated this result tra nsmitted reference range : <=1.0. The reference r carlos was not used to int erpret this result as normal/abnormal . [facility] SystemMfhxakdQEBINZNWDN7720-58-93 18:55:00 Test Item Value Reference Range Interpretation Comments Lymphocytes # (test code = Lymphocytes 1.8 1.0-5.5 #) [facility] SystemLvmylngQHHVIUSHXY0941-98-13 18:55:00 Test Item Value Reference Range Interpretation Comments Monocytes # (test code 0.7 See_Comment [Aut omated message] The = Monocytes #) system which generated this result tra nsmitted reference range : <=0.8. The reference r carlos was not used to int erpret this result as normal/abnormal . [facility] SystemAytuprxXRAZAPAVLW2903-02-55 18:55:00 Test Item Value Reference Range Interpretation Comments Segs-Bands # (test code = Segs-Bands #) 5.0 1.5-8.1 [facility] SystemIdvaqzdXCFFTMLWVM6130-48-98 18:55:00 Test Item Value Reference Range Interpretation Comments Segs (test code = Segs) 64.1 45.0-75.0 [facility] SystemBejvnjkAMJATOHTJN2982-34-72 18:55:00 Test Item Value Reference Range Interpretation Comments Platelet (test code = Platelet) 193 133-450 [facility] SystemIxrvftmQRORDGKHDV5614-80-45 18:55:00 Test Item Value Reference Range Interpretation Comments MPV (test code = MPV) 8.5 7.4-10.4 [facility] SystemRojxeujDRMTJPGLRZ6468-73-90 18:55:00 Test Item Value Reference Range Interpretation Comments RDW (test code = RDW) 17.0 11.5-14.5 [facility] SystemKmscbibRDEGAZIGFF7888-24-30 18:55:00 Test Item Value Reference Range Interpretation Comments MCHC (test code = MCHC) 32.5 32.0-36.0 [facility] SystemIcppqzaPRMCYFNINX6449-16-09 18:55:00 Test Item Value Reference Range Interpretation Comments MCV (test code = MCV) 89.4 80.0-94.0 [facility] SystemEfyvykdTWIDJTMWGI5561-48-30 18:55:00 Test Item Value Reference Range Interpretation Comments RBC X 10x6 (test code = RBC X 10x6) 4.19 4.70-6.10 [facility] SystemPdyqgysJPVYRCFRHK9333-51-57 18:55:00 Test Item Value Reference Range Interpretation Comments MCH (test code = MCH) 29.1 pg 27.0-31.0 [facility] SystemNpgwcpcHVYQPOJEZN3088-04-91 18:55:00 Test Item Value Reference Range Interpretation Comments Hct (test code = Hct) 37.5 42.0-54.0 [facility] SystemFxfsofsTGOSFUHOGV4164-55-09 18:55:00 Test Item Value Reference Range Interpretation Comments Hgb (test code = Hgb) 12.2 14.0-18.0 [facility] SystemUtdqydyRTXJFRGBXJ6072-99-32 18:55:00 Test Item Value Reference Range Interpretation Comments WBC X 10x3 (test code = WBC X 10x3) 7.8 3.7-10.4 [place] [id number] 18:55:00 Test Item Value Reference Range Interpretation Comments Grp A Strep Scr (test Negative (09/10/15 1:55 code = Grp A Strep PM) Scr) [facility]2016-07-11 18:55:00 Test Item Value Reference Range Interpretation Comments B/C Ratio (test code = B/C Ratio) 13 6-25 [facility]2016-07-11 18:55:00 Test Item Value Reference Range Interpretation Comments Globulin (test code = Globulin) 3.9 2.0-4.0 [facility]2016-07-11 18:55:00 Test Item Value Reference Range Interpretation Comments A/G Ratio (test code = A/G Ratio) 0.9 0.7-1.6 [facility]2016-07-11 18:55:00 Test Item Value Reference Range Interpretation Comments AGAP (test code = AGAP) 8.6 10.0-20.0 [facility]2016-07-11 18:55:00 Test Item Value Reference Range Interpretation Comments eGFR (test code = eGFR) 27 [facility]2016-07-11 18:55:00 Test Item Value Reference Range Interpretation Comments Sodium Lvl (test code = Sodium Lvl) 142 135-145 [facility]2016-07-11 18:55:00 Test Item Value Reference Range Interpretation Comments Potassium Lvl (test code = Potassium 4.6 3.5-5.1 Lvl) [facility]2016-07-11 18:55:00 Test Item Value Reference Range Interpretation Comments Creatinine Lvl (test code = Creatinine 2.45 0.50-1.40 Lvl) [facility]2016-07-11 18:55:00 Test Item Value Reference Range Interpretation Comments Chloride Lvl (test code = Chloride Lvl) 110 95-109 [facility]2016-07-11 18:55:00 Test Item Value Reference Range Interpretation Comments CO2 (test code = CO2) [facility]2016-07-11 18:55:00 Test Item Value Reference Range Interpretation Comments Albumin Lvl (test code = Albumin Lvl) 3.5 3.5-5.0 [facility]2016-07-11 18:55:00 Test Item Value Reference Range Interpretation Comments B/C Ratio (test code = B/C Ratio) 13 08-24 [facility]2016-07-11 18:55:00 Test Item Value Reference Range Interpretation Comments Globulin (test code = Globulin) 3.9 2.0-4.0 [facility]2016-07-11 18:55:00 Test Item Value Reference Range Interpretation Comments A/G Ratio (test code = A/G Ratio) 0.9 0.7-1.6 [facility]2016-07-11 18:55:00 Test Item Value Reference Range Interpretation Comments AGAP (test code = AGAP) 8.6 10.0-20.0 [facility]2016-07-11 18:55:00 Test Item Value Reference Range Interpretation Comments eGFR (test code = eGFR) 27 [facility]2016-07-11 18:55:00 Test Item Value Reference Range Interpretation Comments Sodium Lvl (test code = Sodium Lvl) 142 135-145 [facility]2016-07-11 18:55:00 Test Item Value Reference Range Interpretation Comments Potassium Lvl (test code = Potassium 4.6 3.5-5.1 Lvl) [facility]2016-07-11 18:55:00 Test Item Value Reference Range Interpretation Comments Creatinine Lvl (test code = Creatinine 2.45 0.50-1.40 Lvl) [facility]2016-07-11 18:55:00 Test Item Value Reference Range Interpretation Comments Chloride Lvl (test code = Chloride Lvl) 110 95-109 [facility]2016-07-11 18:55:00 Test Item Value Reference Range Interpretation Comments CO2 (test code = CO2) [facility]2016-07-11 18:55:00 Test Item Value Reference Range Interpretation Comments Albumin Lvl (test code = Albumin Lvl) 3.5 3.5-5.0 [facility]2016-07-11 18:55:00 Test Item Value Reference Range Interpretation Comments Alk Phos (test code = Alk Phos) 60 39-136 [facility]2016-07-11 18:55:00 Test Item Value Reference Range Interpretation Comments BUN (test code = BUN) 31 7-22 [facility]2016-07-11 18:55:00 Test Item Value Reference Range Interpretation Comments Glucose Lvl (test code = Glucose Lvl) 81 70-99 [facility]2016-07-11 18:55:00 Test Item Value Reference Range Interpretation Comments Bili Total (test code = Bili Total) 0.4 0.2-1.3 [facility]2016-07-11 18:55:00 Test Item Value Reference Range Interpretation Comments Total Protein (test code = Total 7.4 6.4-8.4 Protein) [facility]2016-07-11 18:55:00 Test Item Value Reference Range Interpretation Comments Calcium Lvl (test code = Calcium Lvl) 8.5 8.5-10.5 [facility]2016-07-11 18:55:00 Test Item Value Reference Range Interpretation Comments ALANINE AMINOTRANSFERASE 15 See_Comment [A utomated message] (test code = ALANINE The sys tem which AMINOTRANSFERASE) generated this result transmitted ref erence range: <=65. Th e reference range was not used to int erpret this result as normal/abnormal . [facility]2016-07-11 18:55:00 Test Item Value Reference Range Interpretation Comments ASPARTATE TRANSAMINASE 12 See_Comment [Aut omated message] (test code = ASPARTATE The s ystem which TRANSAMINASE) generated this result transmitted ref erence range: <=37. Th e reference range was not used to interpr et this result as normal/abnormal . [facility] SystemEsigjjgDGYEYQPHYF3314-69-06 18:55:00 Test Item Value Reference Range Interpretation Comments Eosinophils (test code = 2.6 See_Comment [A utomated message] The Eosinophils) system which ge nerated this result tra nsmitted reference range : <=4.0. The reference r carlos was not used to int erpret this result as normal/abnormal . [facility] SystemFpdplagKLZDSXEOWQ8094-40-86 18:55:00 Test Item Value Reference Range Interpretation Comments Lymphocytes (test code = Lymphocytes) 23.1 20.0-40.0 [facility]EopwfwvAHAFTEODBA8485-88-66 18:55:00 Test Item Value Reference Range Interpretation Comments Monocytes (test code = Monocytes) 9.4 2.0-12.0 [facility] SystemGyqiqakJCCNEMBQQY6482-64-11 18:55:00 Test Item Value Reference Range Interpretation Comments Eosinophils # (test code 0.2 See_Comment [A utomated message] The = Eosinophils #) system whic h generated this result tra nsmitted reference range : <=0.5. The reference r carlos was not used to int erpret this result as normal/abnormal . [facility] SystemDgwzstnZYDEHUCTEF1910-51-22 18:55:00 Test Item Value Reference Range Interpretation Comments Basophils # (test code 0.1 See_Comment [Aut omated message] The = Basophils #) system which generated this result tra nsmitted reference range : <=0.2. The reference r carlos was not used to int erpret this result as normal/abnormal . [facility] SystemTqkqgsvNMZNHFNKOB6636-53-44 18:55:00 Test Item Value Reference Range Interpretation Comments Basophils (test code = 0.8 See_Comment [Aut omated message] The Basophils) system which ge nerated this result tra nsmitted reference range : <=1.0. The reference r carlos was not used to int erpret this result as normal/abnormal . [facility] SystemIanjcnjXKSUJTBKCC9881-40-46 18:55:00 Test Item Value Reference Range Interpretation Comments Lymphocytes # (test code = Lymphocytes 1.8 1.0-5.5 #) [facility] SystemVljvmveJVBMDDFMZZ5659-70-86 18:55:00 Test Item Value Reference Range Interpretation Comments Monocytes # (test code 0.7 See_Comment [Aut omated message] The = Monocytes #) system which generated this result tra nsmitted reference range : <=0.8. The reference r carlos was not used to int erpret this result as normal/abnormal . [facility] SystemCrapxtzYVNUQVISHO9034-46-47 18:55:00 Test Item Value Reference Range Interpretation Comments Segs-Bands # (test code = Segs-Bands #) 5.0 1.5-8.1 [facility] SystemCpvmqvwAUCAKHHBZS5863-89-81 18:55:00 Test Item Value Reference Range Interpretation Comments Segs (test code = Segs) 64.1 45.0-75.0 [facility] SystemKwwxtexGLVTXROZAQ8452-82-16 18:55:00 Test Item Value Reference Range Interpretation Comments Platelet (test code = Platelet) 193 133-450 [facility] SystemUrqjlomNLDQNRHKYK7379-37-99 18:55:00 Test Item Value Reference Range Interpretation Comments MPV (test code = MPV) 8.5 7.4-10.4 [facility] SystemNlsvodtWBXLKECIXL0869-91-60 18:55:00 Test Item Value Reference Range Interpretation Comments RDW (test code = RDW) 17.0 11.5-14.5 [facility] SystemDlyhbekZJTCGAFMJE6331-64-70 18:55:00 Test Item Value Reference Range Interpretation Comments MCHC (test code = MCHC) 32.5 32.0-36.0 [facility] SystemGioymjyOEINVFGDHL0986-06-54 18:55:00 Test Item Value Reference Range Interpretation Comments MCV (test code = MCV) 89.4 80.0-94.0 [facility] SystemOvyilzrXGIPQJFSTW6799-58-26 18:55:00 Test Item Value Reference Range Interpretation Comments RBC X 10x6 (test code = RBC X 10x6) 4.19 4.70-6.10 [facility] SystemTjdjvqpDVBTOFTAYX9027-93-21 18:55:00 Test Item Value Reference Range Interpretation Comments MCH (test code = MCH) 29.1 pg 27.0-31.0 [facility] SystemVvmibpaNRBALLWOAP4972-71-45 18:55:00 Test Item Value Reference Range Interpretation Comments Hct (test code = Hct) 37.5 42.0-54.0 [facility] SystemGwdtfifDYJTJCZSEX6695-01-37 18:55:00 Test Item Value Reference Range Interpretation Comments Hgb (test code = Hgb) 12.2 14.0-18.0 [facility] SystemUrzckxyUFJLVPYLCD2536-46-40 18:55:00 Test Item Value Reference Range Interpretation Comments WBC X 10x3 (test code = WBC X 10x3) 7.8 3.7-10.4 [place] [id number] 18:55:00 Test Item Value Reference Range Interpretation Comments Grp A Strep Scr (test Negative (09/10/15 1:55 code = Grp A Strep PM) Scr) [facility] AND [id number] 16:22:00 Test Item Value Reference Range Interpretation Comments UA Nitrite (test code Negative (06/20/15 11:22 = UA Nitrite) AM) [facility] AND [id number] 16:22:00 Test Item Value Reference Range Interpretation Comments UA Urobilinogen (test code = UA 0.2 0.1-1.0 Urobilinogen) [facility] AND [id number] 16:22:00 Test Item Value Reference Range Interpretation Comments UA Leuk Est (test Negative (06/20/15 11:22 code = UA Leuk Est) AM) [facility] AND [id number] 16:22:00 Test Item Value Reference Range Interpretation Comments UA RBC (test code = 0-2 /HPF See_Comment [Automa nicko message] The UA RBC) system which ge nerated this result tra nsmitted reference range : <=2. The reference range was not used to interpr et this result as adebayo l/abnormal. [facility] AND [id number] 16:22:00 Test Item Value Reference Range Interpretation Comments UA WBC (test code = UA WBC) 0-2 /HPF [facility] AND [id number] 16:22:00 Test Item Value Reference Range Interpretation Comments UA Bacteria (test code = UA Few /HPF Bacteria) [facility] AND [id number] 16:22:00 Test Item Value Reference Range Interpretation Comments UA Sq Epi (test code = UA Sq Epi) Rare /LPF [facility] AND [id number] 16:22:00 Test Item Value Reference Range Interpretation Comments UA Glucose (test code Negative (06/20/15 11:22 = UA Glucose) AM) [facility] AND [id number] 16:22:00 Test Item Value Reference Range Interpretation Comments UA Blood (test code = Negative (06/20/15 11:22 UA Blood) AM) [facility] AND [id number] 16:22:00 Test Item Value Reference Range Interpretation Comments UA Ketones (test code Negative *NA*(06/20/15 = UA Ketones) 11:22 AM) [facility] [id number] 16:22:00 Test Item Value Reference Range Interpretation Comments UA Bili (test code = Negative *NA*(06/20/15 UA Bili) 11:22 AM) [facility] [id number] 16:22:00 Test Item Value Reference Range Interpretation Comments UA Color (test code = Yellow *NA*(06/20/15 UA Color) 11:22 AM) [facility] AND [id number] 16:22:00 Test Item Value Reference Range Interpretation Comments UA Turbidity (test code = Clear (06/20/15 11:22 UA Turbidity) AM) [facility] AND [id number] 16:22:00 Test Item Value Reference Range Interpretation Comments UA pH (test code = UA pH) 6.0 1 5.0-8.0 [facility] AND [id number] 16:22:00 Test Item Value Reference Range Interpretation Comments UA Spec Grav (test code = UA Spec 1.010 1 Grav) [facility] AND [id number] 16:22:00 Test Item Value Reference Range Interpretation Comments UA Protein (test code = UA Protein) 30 mg/dL [facility] AND [id number] 16:22:00 Test Item Value Reference Range Interpretation Comments UA Nitrite (test code Negative (06/20/15 11:22 = UA Nitrite) AM) [facility] AND [id number] 16:22:00 Test Item Value Reference Range Interpretation Comments UA Urobilinogen (test code = UA 0.2 0.1-1.0 Urobilinogen) [facility] AND [id number] 16:22:00 Test Item Value Reference Range Interpretation Comments UA Leuk Est (test Negative (06/20/15 11:22 code = UA Leuk Est) AM) [facility] AND [id number] 16:22:00 Test Item Value Reference Range Interpretation Comments UA RBC (test code = 0-2 /HPF See_Comment [Automa nicko message] The UA RBC) system which ge nerated this result tra nsmitted reference range : <=2. The reference range was not used to interpr et this result as adebayo l/abnormal. [facility] AND [id number] 16:22:00 Test Item Value Reference Range Interpretation Comments UA WBC (test code = UA WBC) 0-2 /HPF [facility] AND [id number] 16:22:00 Test Item Value Reference Range Interpretation Comments UA Bacteria (test code = UA Few /HPF Bacteria) [facility] AND [id number] 16:22:00 Test Item Value Reference Range Interpretation Comments UA Sq Epi (test code = UA Sq Epi) Rare /LPF [facility] AND [id number] 16:22:00 Test Item Value Reference Range Interpretation Comments UA Glucose (test code Negative (06/20/15 11:22 = UA Glucose) AM) [facility] AND [id number] 16:22:00 Test Item Value Reference Range Interpretation Comments UA Blood (test code = Negative (06/20/15 11:22 UA Blood) AM) [facility] AND [id number] 16:22:00 Test Item Value Reference Range Interpretation Comments UA Ketones (test code Negative *NA*(06/20/15 = UA Ketones) 11:22 AM) [facility] AND [id number] 16:22:00 Test Item Value Reference Range Interpretation Comments UA Bili (test code = Negative *NA*(06/20/15 UA Bili) 11:22 AM) [facility] AND [id number] 16:22:00 Test Item Value Reference Range Interpretation Comments UA Color (test code = Yellow *NA*(06/20/15 UA Color) 11:22 AM) [facility] AND [id number] 16:22:00 Test Item Value Reference Range Interpretation Comments UA Turbidity (test code = Clear (06/20/15 11:22 UA Turbidity) AM) [facility] AND [id number] 16:22:00 Test Item Value Reference Range Interpretation Comments UA pH (test code = UA pH) 6.0 1 5.0-8.0 [facility] AND [id number] 16:22:00 Test Item Value Reference Range Interpretation Comments UA Spec Grav (test code = UA Spec 1.010 1 Grav) [facility] AND [id number] 16:22:00 Test Item Value Reference Range Interpretation Comments UA Protein (test code = UA Protein) 30 mg/dL [facility] [employer] [id number] 15:37:00 Test Item Value Reference Range Interpretation Comments CK-MB INDEX (test no gt See_Comment [Automate d message] The code = CK-MB INDEX) system w [facility] generated this result transmit nicko reference range : <=2.5. The reference range was not used to interpr et this result as adebayo l/abnormal. [facility] [employer] [id number] 15:37:00 Test Item Value Reference Range Interpretation Comments Total CK (test code = Total CK) 29 12-191 [facility] [employer] [id number] 15:37:00 Test Item Value Reference Range Interpretation Comments Troponin-I (test code no gt See_Comment [Auto mated message] The = Troponin-I) system which g enerated this result transmit nicko reference range : <=0.40. The reference r carlos was not used to interpr et this result as adebayo l/abnormal. [facility]2016-04-20 15:37:00 Test Item Value Reference Range Interpretation Comments CK MB (test code = CK MB) no gt 0.5-3.6 [employer] [id number] 15:37:00 Test Item Value Reference Range Interpretation Comments eGFR (test code = eGFR) 27 [facility] zanda [id number] 15:37:00 Test Item Value Reference Range Interpretation Comments A/G Ratio (test code = A/G Ratio) 0.7 0.7-1.6 [employer] [id number] 15:37:00 Test Item Value Reference Range Interpretation Comments B/C Ratio (test code = B/C Ratio) 12 6-25 [employer] [id number] 15:37:00 Test Item Value Reference Range Interpretation Comments Globulin (test code = Globulin) 4.5 2.0-4.0 [employer] [id number] 15:37:00 Test Item Value Reference Range Interpretation Comments ASPARTATE TRANSAMINASE 12 See_Comment [Aut omated message] (test code = ASPARTATE The s ystem which TRANSAMINASE) generated this result transmitted ref erence range: <=37. Th e reference range was not used to interpr et this result as normal/abnormal . [facility]2016-04-20 15:37:00 Test Item Value Reference Range Interpretation Comments AGAP (test code = AGAP) 12.2 10.0-20.0 [facility]oAT[facility] [id number] 15:37:00 Test Item Value Reference Range Interpretation Comments Sodium Lvl (test code = Sodium Lvl) 139 135-145 [facility]TinteoAT[facility] [id number] 15:37:00 Test Item Value Reference Range Interpretation Comments Potassium Lvl (test code = Potassium 4.2 3.5-5.1 Lvl) [facility]TinteoAT[facility] [id number] 15:37:00 Test Item Value Reference Range Interpretation Comments BUN (test code = BUN) 29 7-22 [facility]2016-04-20 15:37:00 Test Item Value Reference Range Interpretation Comments Creatinine Lvl (test code = Creatinine 2.47 0.50-1.40 Lvl) [facility]2016-04-20 15:37:00 Test Item Value Reference Range Interpretation Comments ALANINE AMINOTRANSFERASE 23 See_Comment [A utomated message] (test code = ALANINE The sys tem which AMINOTRANSFERASE) generated this result transmitted ref erence range: <=65. Th e reference range was not used to int erpret this result as normal/abnormal . [facility] WorthMerfac [id number] 15:37:00 Test Item Value Reference Range Interpretation Comments Total Protein (test code = Total 7.8 6.4-8.4 Protein) [facility]2016-04-20 15:37:00 Test Item Value Reference Range Interpretation Comments Calcium Lvl (test code = Calcium Lvl) 9.0 8.5-10.5 [facility]TinteoAT[facility] [id number] 15:37:00 Test Item Value Reference Range Interpretation Comments Bili Total (test code = Bili Total) 0.5 0.2-1.3 [facility] [id number] 15:37:00 Test Item Value Reference Range Interpretation Comments CO2 (test code = CO2) 28 24-32 [facility]TinteoAT[facility] [id number] 15:37:00 Test Item Value Reference Range Interpretation Comments Chloride Lvl (test code = Chloride Lvl) 103 95-109 [facility] [id number] 15:37:00 Test Item Value Reference Range Interpretation Comments Glucose Lvl (test code = Glucose Lvl) 134 70-99 [facility]2016-04-20 15:37:00 Test Item Value Reference Range Interpretation Comments Alk Phos (test code = Alk Phos) 57 39-136 [facility]2016-04-20 15:37:00 Test Item Value Reference Range Interpretation Comments Albumin Lvl (test code = Albumin Lvl) 3.3 3.5-5.0 [facility]QklbgynXRDSNZAVPK7258-61-15 15:37:00 Test Item Value Reference Range Interpretation Comments Basophils (test code = 0.6 See_Comment [Aut omated message] The Basophils) system which ge nerated this result tra nsmitted reference range : <=1.0. The reference r carlos was not used to int erpret this result as normal/abnormal . [facility] SystemYihvizcUSCVRIJMQB9214-28-48 15:37:00 Test Item Value Reference Range Interpretation Comments Lymphocytes (test code = Lymphocytes) 13.7 20.0-40.0 [facility] SystemEsberifNRZGILRTNE0115-91-38 15:37:00 Test Item Value Reference Range Interpretation Comments Eosinophils (test code = 1.4 See_Comment [A utomated message] The Eosinophils) system which ge nerated this result tra nsmitted reference range : <=4.0. The reference r carlos was not used to int erpret this result as normal/abnormal . [facility] SystemFonrbacBTMBZEFIBT2465-71-50 15:37:00 Test Item Value Reference Range Interpretation Comments Monocytes (test code = Monocytes) 10.4 2.0-12.0 [facility] SystemMrqfuryJENAHAAKTN2223-67-69 15:37:00 Test Item Value Reference Range Interpretation Comments Basophils # (test code 0.1 See_Comment [Aut omated message] The = Basophils #) system which generated this result tra nsmitted reference range : <=0.2. The reference r carlos was not used to int erpret this result as normal/abnormal . [facility] SystemHfnaxuxEDHFUPSFPH3218-60-40 15:37:00 Test Item Value Reference Range Interpretation Comments Eosinophils # (test code 0.2 See_Comment [A utomated message] The = Eosinophils #) system whic h generated this result tra nsmitted reference range : <=0.5. The reference r carlos was not used to int erpret this result as normal/abnormal . [facility] SystemCreyemcDZLIKDRXQQ2304-10-34 15:37:00 Test Item Value Reference Range Interpretation Comments Segs-Bands # (test code = Segs-Bands #) 8.3 1.5-8.1 [facility] SystemJtwpwiaAPXQDMPIOE7947-95-81 15:37:00 Test Item Value Reference Range Interpretation Comments Lymphocytes # (test code = Lymphocytes 1.5 1.0-5.5 #) [facility] SystemAjsuwcfAZNDXBFFPT4287-45-32 15:37:00 Test Item Value Reference Range Interpretation Comments Monocytes # (test code 1.2 See_Comment [Aut omated message] The = Monocytes #) system which generated this result tra nsmitted reference range : <=0.8. The reference r carlos was not used to int erpret this result as normal/abnormal . [facility] SystemFgnpobvOFSZFLDRGO9393-44-74 15:37:00 Test Item Value Reference Range Interpretation Comments Segs (test code = Segs) 73.9 45.0-75.0 [facility] SystemCbfrrnhEUWPGIFICC3156-54-47 15:37:00 Test Item Value Reference Range Interpretation Comments MCH (test code = MCH) 28.3 pg 27.0-31.0 [facility] SystemZhncrruRFRPVUYQVD7682-88-94 15:37:00 Test Item Value Reference Range Interpretation Comments MCV (test code = MCV) 88.6 80.0-94.0 [facility] SystemKzfajtrXFIYVPHYTO3930-62-44 15:37:00 Test Item Value Reference Range Interpretation Comments RDW (test code = RDW) 13.4 11.5-14.5 [facility] SystemZvlhmmfYIZDGUTZNC7046-45-50 15:37:00 Test Item Value Reference Range Interpretation Comments MCHC (test code = MCHC) 31.9 32.0-36.0 [facility] SystemMaxqzwmUNCRYDJNDV9837-99-41 15:37:00 Test Item Value Reference Range Interpretation Comments WBC X 10x3 (test code = WBC X 10x3) 11.3 3.7-10.4 [facility] SystemRtvvmpyTEOHSDQPNW5662-48-60 15:37:00 Test Item Value Reference Range Interpretation Comments Hct (test code = Hct) 39.5 42.0-54.0 [facility] SystemBoczuuyETYKZTEWZI2806-00-98 15:37:00 Test Item Value Reference Range Interpretation Comments Hgb (test code = Hgb) 12.6 14.0-18.0 [facility]MlchknqKOJDGFGWXR5447-13-96 15:37:00 Test Item Value Reference Range Interpretation Comments RBC X 10x6 (test code = RBC X 10x6) 4.46 4.70-6.10 [facility]inteFmfjwcrCXWMUWXBAR0609-53-73 15:37:00 Test Item Value Reference Range Interpretation Comments Platelet (test code = Platelet) 321 133-450 [facility] PointeNdkzgguELDSOUMAYC4779-44-76 15:37:00 Test Item Value Reference Range Interpretation Comments MPV (test code = MPV) 8.5 7.4-10.4 [facility] PointeYbbvlmtLBCDRFAHVS4861-06-01 15:37:00 Test Item Value Reference Range Interpretation Comments aPTT (test code = aPTT) 32.0 s 22.9-35.8 [facility] PointeBkkdwsdANBITBKCYW4343-82-42 15:37:00 Test Item Value Reference Range Interpretation Comments INR (test code = INR) 1.00 0.85-1.17 [facility] PointeRzlnmyvUVLCAWHYOD6043-47-37 15:37:00 Test Item Value Reference Range Interpretation Comments PROTIME (test code = PROTIME) 13.5 s 12.0-14.7 [facility] WorthR[facility] Raise [id number] 15:37:00 Test Item Value Reference Range Interpretation Comments CK-MB INDEX (test no gt See_Comment [Automate d message] The code = CK-MB INDEX) system w [facility] generated this result transmit nicko reference range : <=2.5. The reference range was not used to interpr et this result as adebayo l/abnormal. [facility] WorthTinteoCARDIAC [id number] 15:37:00 Test Item Value Reference Range Interpretation Comments Total CK (test code = Total CK) 29 12-191 [facility]CARKanjoyaAC [id number] 15:37:00 Test Item Value Reference Range Interpretation Comments Troponin-I (test code no gt See_Comment [Auto mated message] The = Troponin-I) system which g enerated this result transmit nicko reference range : <=0.40. The reference r carlos was not used to interpr et this result as adebayo l/abnormal. [facility] NetsizeCARDIAC GWRHXDZ7418-03-55 15:37:00 Test Item Value Reference Range Interpretation Comments CK MB (test code = CK MB) no gt 0.5-3.6 [facility]2016-04-20 15:37:00 Test Item Value Reference Range Interpretation Comments eGFR (test code = eGFR) 27 [facility]2016-04-20 15:37:00 Test Item Value Reference Range Interpretation Comments A/G Ratio (test code = A/G Ratio) 0.7 0.7-1.6 [facility]2016-04-20 15:37:00 Test Item Value Reference Range Interpretation Comments B/C Ratio (test code = B/C Ratio) 12 6-25 [facility]2016-04-20 15:37:00 Test Item Value Reference Range Interpretation Comments Globulin (test code = Globulin) 4.5 2.0-4.0 [facility]2016-04-20 15:37:00 Test Item Value Reference Range Interpretation Comments ASPARTATE TRANSAMINASE 12 See_Comment [Aut omated message] (test code = ASPARTATE The s te which TRANSAMINASE) generated this result transmitted ref erence range: <=37. Th e reference range was not used to interpr et this result as normal/abnormal . [facility]2016-04-20 15:37:00 Test Item Value Reference Range Interpretation Comments AGAP (test code = AGAP) 12.2 10.0-20.0 [facility]2016-04-20 15:37:00 Test Item Value Reference Range Interpretation Comments Sodium Lvl (test code = Sodium Lvl) 139 135-145 [facility]2016-04-20 15:37:00 Test Item Value Reference Range Interpretation Comments Potassium Lvl (test code = Potassium 4.2 3.5-5.1 Lvl) [facility]2016-04-20 15:37:00 Test Item Value Reference Range Interpretation Comments BUN (test code = BUN) 29 - [facility]2016-04-20 15:37:00 Test Item Value Reference Range Interpretation Comments Creatinine Lvl (test code = Creatinine 2.47 0.50-1.40 Lvl) [facility]2016-04-20 15:37:00 Test Item Value Reference Range Interpretation Comments ALANINE AMINOTRANSFERASE 23 See_Comment [A utomated message] (test code = ALANINE The sys tem which AMINOTRANSFERASE) generated this result transmitted ref erence range: <=65. Th e reference range was not used to int erpret this result as normal/abnormal . [facility]2016-04-20 15:37:00 Test Item Value Reference Range Interpretation Comments Total Protein (test code = Total 7.8 6.4-8.4 Protein) [facility]2016-04-20 15:37:00 Test Item Value Reference Range Interpretation Comments Calcium Lvl (test code = Calcium Lvl) 9.0 8.5-10.5 [facility]2016-04-20 15:37:00 Test Item Value Reference Range Interpretation Comments Bili Total (test code = Bili Total) 0.5 0.2-1.3 [facility]2016-04-20 15:37:00 Test Item Value Reference Range Interpretation Comments CO2 (test code = CO2) 28 24-32 [facility]2016-04-20 15:37:00 Test Item Value Reference Range Interpretation Comments Chloride Lvl (test code = Chloride Lvl) 103 95-109 [facility]2016-04-20 15:37:00 Test Item Value Reference Range Interpretation Comments Glucose Lvl (test code = Glucose Lvl) 134 70-99 [facility]2016-04-20 15:37:00 Test Item Value Reference Range Interpretation Comments Alk Phos (test code = Alk Phos) 57 39-136 [facility]2016-04-20 15:37:00 Test Item Value Reference Range Interpretation Comments Albumin Lvl (test code = Albumin Lvl) 3.3 3.5-5.0 [facility] SystemPrrdnxpNNCGMBKNIW2143-30-46 15:37:00 Test Item Value Reference Range Interpretation Comments Basophils (test code = 0.6 See_Comment [Aut omated message] The Basophils) system which ge nerated this result tra nsmitted reference range : <=1.0. The reference r carlos was not used to int erpret this result as normal/abnormal . [facility] SystemJhqeiltLOKCFQKMPP6108-43-79 15:37:00 Test Item Value Reference Range Interpretation Comments Lymphocytes (test code = Lymphocytes) 13.7 20.0-40.0 [facility] SystemHxacjxyLWDGXRRPDM6431-70-88 15:37:00 Test Item Value Reference Range Interpretation Comments Eosinophils (test code = 1.4 See_Comment [A utomated message] The Eosinophils) system which ge nerated this result tra nsmitted reference range : <=4.0. The reference r carlos was not used to int erpret this result as normal/abnormal . [facility] SystemUairbniDVCJDTRWHZ5328-40-46 15:37:00 Test Item Value Reference Range Interpretation Comments Monocytes (test code = Monocytes) 10.4 2.0-12.0 [facility] SystemXijdciuVPXNBCDETY2762-39-15 15:37:00 Test Item Value Reference Range Interpretation Comments Basophils # (test code 0.1 See_Comment [Aut omated message] The = Basophils #) system which generated this result tra nsmitted reference range : <=0.2. The reference r carlos was not used to int erpret this result as normal/abnormal . [facility] SystemZwqbiziZYSVMCGRCN8561-64-87 15:37:00 Test Item Value Reference Range Interpretation Comments Eosinophils # (test code 0.2 See_Comment [A utomated message] The = Eosinophils #) system whic h generated this result tra nsmitted reference range : <=0.5. The reference r carlos was not used to int erpret this result as normal/abnormal . [facility] SystemBpuyndhOGQCJMNCMF3569-71-21 15:37:00 Test Item Value Reference Range Interpretation Comments Segs-Bands # (test code = Segs-Bands #) 8.3 1.5-8.1 [facility] SystemOqbziqbFMJYAJNCTX7816-32-93 15:37:00 Test Item Value Reference Range Interpretation Comments Lymphocytes # (test code = Lymphocytes 1.5 1.0-5.5 #) [facility] SystemSrwhjrpAPFTOKOLZA3778-88-83 15:37:00 Test Item Value Reference Range Interpretation Comments Monocytes # (test code 1.2 See_Comment [Aut omated message] The = Monocytes #) system which generated this result tra nsmitted reference range : <=0.8. The reference r carlos was not used to int erpret this result as normal/abnormal . [facility] SystemFiknadpVQNCXIAFNP6884-71-67 15:37:00 Test Item Value Reference Range Interpretation Comments Segs (test code = Segs) 73.9 45.0-75.0 [facility] SystemTclfixbTCHIDTSBJM0463-39-01 15:37:00 Test Item Value Reference Range Interpretation Comments MCH (test code = MCH) 28.3 pg 27.0-31.0 [facility] SystemEaffwlpBJZLCJBYRB5068-70-24 15:37:00 Test Item Value Reference Range Interpretation Comments MCV (test code = MCV) 88.6 80.0-94.0 [facility] SystemDcrdswjPGCLMEWMKZ2577-89-86 15:37:00 Test Item Value Reference Range Interpretation Comments RDW (test code = RDW) 13.4 11.5-14.5 [facility] SystemYxnqgkbEDYDXJONRH2031-06-02 15:37:00 Test Item Value Reference Range Interpretation Comments MCHC (test code = MCHC) 31.9 32.0-36.0 [facility] SystemWpuhnpwXVQEYOYKTO9222-19-76 15:37:00 Test Item Value Reference Range Interpretation Comments WBC X 10x3 (test code = WBC X 10x3) 11.3 3.7-10.4 [facility] SystemJnalgksBBFBEYNDFE1963-47-84 15:37:00 Test Item Value Reference Range Interpretation Comments Hct (test code = Hct) 39.5 42.0-54.0 [facility] SystemLsnxmxkIBNPACJARG3399-96-78 15:37:00 Test Item Value Reference Range Interpretation Comments Hgb (test code = Hgb) 12.6 14.0-18.0 [facility] SystemGadakgkKQLYQUHAOB7500-82-13 15:37:00 Test Item Value Reference Range Interpretation Comments RBC X 10x6 (test code = RBC X 10x6) 4.46 4.70-6.10 [facility] SystemKiyypnrFTCKQIVVJZ7419-69-85 15:37:00 Test Item Value Reference Range Interpretation Comments Platelet (test code = Platelet) 321 133-450 [facility] SystemNldjknoCUZKLFQVKW3978-34-74 15:37:00 Test Item Value Reference Range Interpretation Comments MPV (test code = MPV) 8.5 7.4-10.4 [facility] SystemXpdxokzMSMXTUZDVU0293-26-18 15:37:00 Test Item Value Reference Range Interpretation Comments aPTT (test code = aPTT) 32.0 s 22.9-35.8 [facility] SystemVpomdciVJWZGISYAM9112-85-76 15:37:00 Test Item Value Reference Range Interpretation Comments INR (test code = INR) 1.00 0.85-1.17 [facility] SystemUsetkivQFDYONPPHU2420-14-43 15:37:00 Test Item Value Reference Range Interpretation Comments PROTIME (test code = PROTIME) 13.5 s 12.0-14.7 [facility] Notes Date/Time Note Provider Source 2021-11-11 Radiation Dose CTDIVOL = 0 (mGy): DLP = 820.51 ( mGy-cm) CLARENCE Xavier 08:56:47-00:00 PROCEDURE INFORMATION: Exam: CT Chest Without Contrast; Diagnostic Exam date and time: 11/11/2021 9:10 AM Age: 66 years old Clinical indication: Persona l history of other specified conditions; Additional info: /z87.898 personal history of other specifi ed conditions TECHNIQUE: Imaging protocol: Diagnostic computed tomography of the chest without contrast. Radiation optimization: All CT scans at this facility use at least one of these dose optimization techniques: automated exposure control; mA and/or kV adjustment per patient size (includes targeted e xams where dose is matched to clinical indication); or iterative reconstructio n. COMPARISON: CHEST WO CONTRAST CT 04/25/2020 and 05/09/2021 RADIATION DOSE METRICS: Total DLP (mGy-cm): 820.51 FINDINGS: Lungs: Right lower lobe basilar posterior segmen oli subpleural 1.6 cm fatty attenuating chronic nodule, unchanged si nce at least April 2020. Resolution of previously visualized right upper lobe vice president of advertising ior segmental 6 mm pulmonary nodule/nodular focus of pneumonitis. Hyperinflat ion. Mild right middle lobe linear scarring. Pleural spaces: Unremarkable. No pneumothorax. N o pleural effusion. Heart: Heart size normal. Moderate three-vessel coronary atherosclerotic calcific disease is present. Lymph nodes: Unremarkable. No enlarged lymph nod es. Vasculature: Stable ascending thoracic aortic ec joshua, 4.2 cm. Mild scattered calcified plaque in the thoracic aorta. Liver: Multiple hepatic cysts are present. Adrenal glands: Adrenal glands are normal. Kidneys and ureters: Polycys tic kidneys with innumerable simple, proteinaceous, and hemorrhagic cysts grossly stable throughout kidneys. Stomach and bowel: Partially visualized transverse and splenic colonic flexure mild diverticulosis. Bones/joints: Unremarkable. No acute fracture. Soft tissues: Unremarkable. IMPRESSION: 1. 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 Benign. 2. Resolution of previously visualized right upp er lobe posterior segmental 6 mm pulmonary nodule/nodular focus of pneumonitis . 3. Mild pulmonary emphysematous changes. 4. Stable ascending thoracic aortic ectasia, 4.2 cm. 5. Polycystic kidneys with innumerable simple, p roteinaceous, and hemorrhagic cysts grossly stable throughout kidneys. 6. Partially visualized transverse and splenic c olonic flexure mild diverticulosis. Pete Flanagan MD On 11/12/2021 14:21:27; [id number] 2021-11-11 Radiation Dose CTDIVOL = 0 (mGy): DLP = 2293.3 ( mGy-cm) [facility] 08:56:47-00:00 PROCEDURE INFORMATION: Exam: CT Abdomen And Pelvis Without And With Con trast Exam date and time: 11/11/2021 9:22 AM Age: 66 years old Clinical indication: Benign prostatic hyperplasi a without lower urinary tract symptoms; Additional info: /n40.0 benign prostat ic hyperplasia without lower urinary tract symptoms, n31. 8 other neuromuscular dysfunction of bladder, n18.9 chronic kidney disease, unspecified, r31 .29 other microscopic hematuria, r80.9 proteinuria, unspecified, q61.2 jaswinder TECHNIQUE: Imaging protocol: Computed tomography of the abd omen and pelvis without and with contrast. Reconstructed images: Axial Sagittal and Coronal . Radiation optimization: All CT scans at this facility use at least one of these dose optimization techniques: automated exposure control; mA and/or kV adjustment per patient size (includes targeted e xams where dose is matched to clinical indication); or iterative reconstructio n. Contrast material: OMNIPAQUE 350; Contrast volum e: 100 ml; Contrast route: INTRAVENOUS (IV); COMPARISON: ABDOMEN/PELVIS WO IV CONTRAST CT 04/25/2020 8:15 AM RADIATION DOSE METRICS: Total DLP (mGy-cm): 2293.3 FINDINGS: Tubes, catheters and devices: There is a draining catheter inserted at the mid anterior abdominal wall with its tip in the left lower quadrant without adjacent free fluid. Lungs: There is a 1.7 cm rou nded lesion in the right lung base with macroscopic fat contents, likely represent hamartoma . Mild bilateral emphysematous changes seen. Liver: Bilobar hepatic cysts are seen measuring up to 4.3 cm in the right hepatic lobe. Gallbladder and bile ducts: Normal. No calcified stones. No thickened wall or pericholecystic fluid. No ductal dilation. Pancreas: Normal. No ductal dilation. Spleen: Normal. No splenomegaly. Adrenal glands: Normal. No mass. Kidneys and ureters: The numerous bilateral selene l cysts are seen measuring up to 4.8 cm at the mid pole of the left kidney casimiro e of which are hemorrhagic. Some of the cysts contain punctate calcification s in its capsule. No hydronephrosis. Stomach and bowel: Colonic diverticulosis is pre sent without signs of diverticulitis. Stomach and small bowel loops ap pear unremarkable. Appendix: No evidence of appendicitis. Intraperitoneal space: Unremarkable. No free air . No significant fluid collection. Retroperitoneal space: Unremarkable without hallie ections Vasculature: There is severe atherosclerotic iris cifications of the aorta, celiac artery, superior mesenteric artery, and r enal arteries. There is also atherosclerotic calcifications in the iliac and femoral arteries. There is postsurgical changes from prior endovascular ane urysm repair of the abdominal aorta . The excluded aortic sac measures 2.6 x 2 .9 cm. There is aneurysmal dilatation of the right comm on iliac artery measuring 2.2 cm. There is a 3.4 cm aneurysmal dilatation just superior to the origi n of the superior mesenteric artery. Lymph nodes: Unremarkable. No enlarged lymph nod es. Urinary bladder: Unremarkable as visualized. Reproductive: The prostate is enlarged containin g coarse calcifications. Bones/joints: Unremarkable. No acute fracture. Soft tissues: Unremarkable. IMPRESSION: 1. Kidneys are enlarged with numerous bi lateral renal cysts, some of which are hemorrhagic. This likely due to adult po lycystic kidney disease. Some of these cysts are hemorrhagic. 2. Bilobar hepatic cysts. 3. Hamartoma in the right lung base. 4. Mild emphysematous changes. 5. Colonic diverticulosis is present without sig ns of diverticulitis. 6. Prostatomegaly. 7. Severe atherosclerotic calcifications of the aorta and its main branches abdomen pelvis. Postsurgical changes from prior EVAR. COMMENTS: Consistent with the [employer]'s Incidental Findings Committee white paper (J Am Hallie Radiol 2018): Any incidental renal lesion less than 1 cm or classified as too small to characterize, or any incidental cystic renal lesion characterized as simple-karen earing, is likely benign. No follow-up imaging is recommended for t hese lesions per consensus recommendations based on imaging criteria. Mat Sabillon MD On 11/12/2021 09:45:20; VR-BF [id number] 2021-05-09 EXAM: CT CHEST WITHOUT CONTRAST [facility] 13:04:00-00:00 DATE: 05/09/2021 1309 hours INDICATION: - Z01.818 Encounter for other prepro cedural examination ADDITIONAL INFORMATION: 66-y ear-old male with history CKD the secondary to polycystic kidney disease, AAA status post repair in 2016, hypertension, hyperlipidemia, tobacco use history, tubes. Diabetes, COPD, ARSH, awaiting renal transplant. COMPARISON: CT chest abdomen and pelvis TECHNIQUE: Volumetric CT of the chest is acquired without contrast. Axial, coronal and sagittal images are provided. Axial MIP reconstructions are created at the acquisition workstation. IV contrast: None. DLP (mGy-cm): Please see detailed CT protocol re port for further details. FINDINGS: Lines, tubes and hardware: A n infrarenal abdominal aortic stent graft is partially visualized. Lower neck: The visible port ions of the lower neck and thyroid are unremarkable. Axilla: Clear. Airway: Patent. Lungs and pleura: * New 0.6 cm right upper lobe semisolid nodule ( series 5, image 140). * Stable 0.2 cm left lower lobe solid pulmonary nodule (series 4, image 167). * Unchanged appearance of multiple calcified gra nulomas. * Similar appearance of bilateral scattered sept al thickening. * Redemonstration of minimal upper lobe predomin ant paraseptal emphysema. * Stable size and appearance of 1.5 cm well-circumscribed fat attenuation nodule in the right lower lobe (series 4, image 158), which is again consistent with a hamartoma. * No pleural effusion. No pneumothorax. Mediastinum, elias and intrat horacic lymph nodes: Stable 0.8 cm calcified mediastinal lymph nodes (series 4, image 74). Heart, pericardium and great vessels: The heart is normal in size. No pericardial effusion is present. The ascending aorta measures 4.1 cm (series 4, image 86). The main pulmonary trunk is within normal limits. Three-vessel nogueira ry artery calcifications are present, in addition to scattered descending thoracic aortic calcifications. Upper abdomen: * Innumerable hepatic cysts are again noted, the largest measuring up to 4.2 cm in the transverse dimension which is stable in comparison to prior CT on 04/25/2020. * Stable left adrenal myolip deepali which continues to measures 1.0 cm (series 4, image 233). * Bilateral polycystic kidne ys are again noted consistent with known history polycystic kidney disease. * Rounded hyperdense materia l is present at the junction of the first and second portion of the duodenum, which is consistent with ingested material. Bones: No acute abnormality. Multilevel degenerative changes of the thoracolumbar spine Soft tissues: A partially vi sualized catheter is seen tracking along the right anterior abdominal wall, which does not enter the peritoneal cavity within this limited view of the abdomen. IMPRESSION: 1. Stable aneurysmal ascending thoracic aorta, w hich measures 4.1 cm. 2. Three-vessel coronary art jimenez and scattered descending thoracic aortic calcifications. 3. New 0.6 cm right upper lo be semisolid pulmonary nodule is visualized. This likely favors inflammatory/infectious etiology but cannot rule out malignancy. Recommend close follow-up with CT in 8-12 weeks. 4. Redemonstration of bilate ral scattered septal thickening, which is similar in appearance in comparison to the prior. 5. Stable right lower lobe b enign hamartoma measuring 1.5 cm and 0.2 cm left lower lobe nodule. 6. Remaining incidental findings in the abdomen and pelvis described above. 2021-05-09 EXAM: US EXTRACRANIAL ARTERIAL DOPPLER [facility] 10:18:59-00:00 DATE: 05/09/2021 7:57 DUST COLLECTOR OPERATOR Center INDICATION: Pre-Transplant evaluation for kidney transplant - ESRD ADDITIONAL INFORMATION: None. COMPARISON: None. TECHNIQUE: Multiplanar jonas scale, color and spectral Doppler ultrasound of the carotid and vertebral arteries. FINDINGS: RIGHT: Mild atheromatous bailey que at the carotid bifurcation. No hemodynamically significant ICA, CCA or ECA stenosis. Vertebral artery has antegrade flow. LEFT: Mild atheromatous plaq ue at the carotid bifurcation. Doppler evaluation shows no hemodynamically significant stenosis in the ICA, CCA or ECA. Vertebral artery has antegrade flow. MEASUREMENTS: Right Common Carotid Artery (RCCA): 48 cm/s Right Internal Carotid Artery (JHONNY): 43 / 14 cm /s Right ICA/CCA: 0.89 Right External Carotid Artery (RECA): 46 cm/s Right Vertebral Artery (RVA): 38 cm/s Right Subclavian Artery: 86 cm/s Left Common Carotid Artery (LCCA): 56 cm/s Left Internal Carotid Artery (LICA): 56 / 18 cm/ s Left ICA/CCA: 1.0 Left External Carotid Artery (LECA): 35 cm/s Left Vertebral Artery (LVA): 35 cm/s Left Subclavian Artery: 75 cm/s IMPRESSION: 1. Right internal carotid artery: No stenosis. 2. Left internal carotid artery: No stenosis. 3. Vertebral arteries: Patent with antegrade jay w. According to the 2003 Consensus criteria: <50% stenosis: PSV <125 cm/sec, EDV <40cm/sec, ICA:CCA ratio <2 50-69% stenosis: PSV 125-230cm/sec, EDV 40-100c m/sec, ICA:CCA ratio 2-4 >70% stenosis: PSV >230cm/sec, EDV >100cm/sec, ICA:CCA ratio >4 REFERENCE: Radiology. 2003 [id number]. Carotid Artery Stenosis: Jonas-scale and Doppler US diagnosis- Society of Radiologists in Ultrasound Consensus Conference. Feliciano EG, Dion CB, Robinson GL, et. al. 2020-06-09 EXAM: MRA BRAIN WITHOUT CONTRAST [facility] 17:35:00-00:00 DATE: 06/09/2020 Center INDICATION: Aneurysm . COMPARISON: Brain MRA dated 09/14/2018 TECHNIQUE: - Three-dimensional time of flight brain MR angiography of intracranial vessels is performed, and maximum intensity projection reformatted images are presented in multiple three-dimensional rotational projections. - IV contrast: None FINDINGS: A subtle outpouching of the inferior wall of the cavernous segment of the right ICA (better seen on series 301, image 61) remains similar in appearance as compared to the previous study. The distal internal carotid arteries and the branches of anterior and middle cerebral arteries are patent. The distal vertebral arterie s, basilar artery, cerebellar branches, and posterior cerebral arteries are normal in appearance. Prominent posterior communicating arteries are d emonstrated bilaterally. IMPRESSION: The subtle outpouching of th e cavernous segment of the right ICA inferiorly remains unchanged in appearance. No definite saccular aneurysm is identified in this region. 2020-04-25 EXAM: CT ABDOMEN AND PELVIS WITHOUT CONTRAST [facility] 08:00:00-00:00 DATE: 04/25/2020 7:50 DUST COLLECTOR OPERATOR Center INDICATION: - Iliac Vessels COMPARISON: CT abdomen pelvis without contrast d ated 04/14/2018 TECHNIQUE: Volumetric CT of the abdomen and pelvis acquired without intravenous contrast. Axial, coronal and sagittal images are provided. IV contrast: None. Enteric contrast: None. FINDINGS: Limited evaluation due to lack of intravenous co ntrast. Warranty Manager: Noncontributory. Lines, tubes and hardware: None. Lower thorax: Lower thoracic findings are as reported on concurrently obtained chest CT of the same date. Liver: Multiple hepatic cyst s are grossly unchanged when compared to prior examination, including a 3.6 cm cyst within hepatic segment 6. Biliary tree: No intra- or extrahepatic bile johnny t dilation. Gallbladder: Normal. Pancreas: Normal. Spleen: Normal. Adrenals: Stable left adrenal myolipoma measurin g 1.3 cm in diameter. Kidneys and ureters: Redemon strated bilateral polycystic kidneys with innumerable complex hemorrhagic cysts, not significantly changed since prior examination. No hydronephrosis. Bladder: Mild diffuse bladder wall thickening, l ikely due to underdistention. Reproductive organs: Prostat omegaly with likely benign prostatic calcifications. Seminal vesicles are symmetric. Gastrointestinal tract: Lower esophagus: Normal. Stomach: Small hiatal hernia. Small bowel: Normal. Colon: Submucosal fatty infi ltration involving the proximal colon. Diffuse diverticulosis primarily involving the descending and sigmoid colon without inflammation. Appendix: Normal. Peritoneum, mesentery and re troperitoneum: No free air, ascites or loculated fluid. Lymph nodes: Normal. Vasculature: Aorta and branches: Aortobii liac endovascular stent with minimally increased size of the aortic aneurysm, saccular component measuring 4.8 x 3.9 cm, previously measuring 4.5 x 3.8 cm. Stable aneurysm of the right common iliac marti ry measuring up to 2.6 cm in maximal diameter. Mild calcification involving the bilateral iliac vasculature. Bones: No acute abnormality. Degenerative findings. Schmorl's node at L4 superior endplate. Soft tissues: Small fat-containing umbilical her tessa. IMPRESSION: 1. Bilateral polycystic kidn eys with innumerable complex hemorrhagic cysts, without significant interval change since prior examination. 2. Aortobiiliac endovascular stent with minimally increased size of aortic aneurysm and stable right common iliac artery aneurysms, as described above. 3. Interval increase in the degree of submucosal fatty infiltration involving the proximal colon may represent sequela of prior infection/inflammation, but nonspecific. 4. Other chronic findings, a s described above, without significant interval change when compared to prior imaging dated 04/14/2018. 2020-04-25 EXAM: CT CHEST WITHOUT CONTRAST [facility] 08:00:00-00:00 DATE: 04/25/2020 at 8:05 AM DUST COLLECTOR OPERATOR C enter INDICATION: - transplant TECHNIQUE: Volumetric CT acq uisition of the chest without contrast. Axial, sagittal and coronal reconstructions. MIP images were performed. IV contrast: None. DLP: Total dose of 1628 mGy-cm COMPARISON: CT chest from 04/01/2019 FINDINGS: Lower Neck: The visible port ions or the lower neck and thyroid are unremarkable. Heart, mediastinum and great Vessels: Heart size is normal and there is no pericardial effusion. Ascending aorta measures 4.1 cm. Main pulmonary trunk is within normal limits. Aortic root, thoracic aort ic and scattered three-vessel coronary artery ca lcifications. Lymphatics: Calcified prevas cular lymph node, sequela of prior granulomatous infection. No intrathoracic lymphadenopathy by pathologic CT size criteria. Airways, Lungs and Pleura: A irways are patent. Minimal upper lobe paraseptal emphysema. As before there is mild scattered bilateral septal thickening and subsegmental atelectasis which have increased in the left upper lobe adjacen t to the fissure as seen on axial images 45 and 46. Calcified granuloma right upper lobe. Stable 2 mm nodule left lower lobe axial image 158. Stable 1.5 cm circumscribed nodu le with internal fatty atten uation in the right lower lobe on axial image 161, most consistent with a hamartoma. No pleural effusion or pneumothorax. Bones and Soft Tissues: No a cute abnormality. Chronic healed left anterior 6th, 7th, and 8th rib fractures. Upper abdomen: Please refer to CT abdomen from the same day for concomitant infradiaphragmatic findings. IMPRESSION: 1. Reidentified scattered bi lateral septal thickening and postinflammatory subsegmental atelectasis, mildly increased in the left upper lobe adjacent to the oblique fissure. 2. Stable right lower lobe benign hamartoma and left lower lobe 2 mm nodule. 3. Borderline stable aneurysmal ascending thorac ic aorta. 4. Aortic and coronary calcifications. 5. Please refer to CT abdome n from the same day for concomitant infradiaphragmatic findings. 2019-04-01 EXAM: CT CHEST WITHOUT CONTRAST [facility] 12:37:38-00:00 DATE: 04/01/2019 12:44 DUST COLLECTOR OPERATOR Center INDICATION: - Pre-kidney transplant eval COMPARISON: CT chest on 04/14/2018. TECHNIQUE: Volumetric CT of the chest is acquired without contrast. Axial, coronal and sagittal images are provided. Axial MIP images are also provided. IV contrast: None. DLP (mGy-cm): 909 mGy-cm FINDINGS: Lines, tubes and hardware: None. Lower neck: The visible port ions or the lower neck and thyroid are unremarkable. Axilla: Clear. Airway: Patent. Lungs and pleura: Mild scatt ered septal thickening in the lungs bilaterally, which is likely secondary to minimal interstitial pulmonary edema. Well circumscribed fatty attenuated nodule in the right lo wer lobe, which is consisten t with a hamartoma that is unchanged in size from prior CT (series 3, image 160). Small calcified granuloma in the right upper lobe. Previously seen nodule in the right lower lung, abutting the diaphrag matic surface and associated with subsegmental atelectasis has [...] pericardial effusion is noted. Upper abdomen: Bilateral jaswinder ycystic dysmorphic kidneys. Multiple hypodense liver cysts with the largest measuring approximately 3.6 x 2.4 cm, which appears stable from prior CT on 04/14/2018. Debris-walker led distended gastric cavity . Partial visualization of the ascending aorta stent. Bones: No acute abnormality. Old healed left anterior 6th, 7th, and 8th rib fractures. Soft tissues: Normal. IMPRESSION: 1. Stable right lower lobe hamartoma. 2. Previously seen nodule in the right lower lung, abutting the diaphragmatic surface and associated with subsegmental atelectasis has resolved in the interval. 3. Stable ascending aortic aneurysm measuring up to 4.2 cm. 4. Coronary and aortic atherosclerotic disease. 5. Bilateral polycystic dysp lastic kidneys and multiple hypodense liver cyst, which correlates with patient's known history of polycystic kidney disease. 2019-04-01 EXAM: US ABDOMEN COMPLETE [facility] 08:32:00-00:00 DATE: 04/01/2019 0032 hours Cente r INDICATION: [...] None. IMPRESSION: 1. Enlarged polycystic kidneys. No hydronephrosi s or stones. 2. Multiple simple hepatic c ysts are noted and are likely related to above polycystic kidney disease. 3. Enlarged and echogenic hepatic parenchyma fav ors steatosis. 2018-09-14 EXAM: MRA OF THE BRAIN WITHOUT CONTRAST [facility] 16:00:00-00:00 EXAM: MR VENOGRAM OF THE BRAIN WITHOUT CONTRAST Center DATE: 09/14/2018 INDICATION: 'N18.9 Chronic k idney disease, unspecified - mra brain wo', multiple [...] IV contrast: None. FINDINGS: MRA of the [place] of [place]: Normal flow-related signal i s [...] head ischemic infarction are seen on the [id number] imaging, with likely tiny infarcts throughout the right caudate body. IMPRESSION: 1. No hemodynamically signif icant stenosis or intradural aneurysm on MRA brain. 2. A lobulated 0.4 cm inferi floridalma projecting outpouching along the cavernous segment of the right internal carotid artery could either represent vessel wall irregularity (favored given the lack of a sacc ular appearance on 3-D imaging) or small extradu ral aneurysm. 3. Dominant right and hypopl astic left transverse and sigmoid sinuses on MRV without signs of thrombosis. 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 2018-05-12 EXAM: US ABDOMEN LIMITED Isacc Meredith 09:04:00-00:00 DATE: 05/12/2018 9:04 CDT Center INDICATION: ESRD, RTP workup, polycystic kidneys , evaluate liver cysts - ESRD COMPARISON: CT abdomen/pelvis without contrast 0 04/14/2018 TECHNIQUE: Multiplanar morteza iker and color Doppler ultrasound of the right upper quadrant. FINDINGS: Liver: Craniocaudal length: 19 cm. Echogenicity: Normal. Surface: Normal. Mass (size and location): Multiple simple cysts. * An area in the right hepat ic lobe measures 2.9 x 4.4 x 2.9 cm and likely represents a cluster of simple cysts versus a single larger cyst with thin septations. * Simple cyst at the left he patic lobe adjacent to the gallbladder measuring 1.1 cm. * Simple cyst in the left lobe measuring 1.2 cm. * Simple cyst in the left lobe measuring 1.7 cm. * Likely multiple additional tiny simple cysts scattered throughout the liver. [...] hepatic cysts. 2. No other abnormality identified. 2018-04-14 EXAM: CT ABDOMEN AND PELVIS WITHOUT CONTRAST 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 Prekidney transplan t evaluation. COMPARISON: 11/03/2016. TECHNIQUE: Volumetric CT of [...] Soft tissues: Normal. IMPRESSION: 1. Bilateral polycystic kidn eys with interval increase in number and size of the bilateral complex, hemorrhagic cysts. 2. 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 3. Unchanged multiple hepatic cysts. 4. Diverticulosis without diverticulitis. 5. Stable left adrenal myolipoma. 2018-04-14 EXAM: CT CHEST WITHOUT CONTRAST 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 2016-11-03 EXAM: CT abdomen and pelvis Jonathan Zaldivar 12:30:00-00:00 HISTORY: Abdominal aortic aneurysm, malaise COMPARISON: CT [...] Bladder is unremarkable. No free fluid. SL: [id number] 2016-11-03 EXAM: Ultrasound abdomen Malia Zaldivar 11:44:00-00:00 HISTORY: Aortic aneurysm repair, abdominal pain COMPARISON: 06/20/2015 TECHNIQUE: Grayscale and jackson ited color sonographic evaluation of the abdomen [...] normal size. 7. IVC is visualized. SL: [id number] 2015-09-10 Clinical Indication: Mass; Daltonor santhosh Zaldivar 15:05:00-00:00 Comparison: None 2 view neck Prominent lingual tonsillar tissues. Normal epiglottis. No subglottic airway narrowing. Prevertebral soft tissues normal. No radiopaque foreign body. IMPRESSION: Suspect lingual tonsillar hypertroph y. SL: [id number] 2015-06-20 Patient Name: ZENIA JIMENES [facility] 13:53:00-00:00 : 1955; Age: 60 years y/o Male MR: [id number] Study: Spine Thoracic wo contrast MRI 06/20/2015 [...] no fractures or compression deformities. The thoracic s pine posterior elements are normal. The costovertebral junctions [...] right neural foraminal narrowing at T9-T10. SL: [id number] 2015-06-20 Study: Spine lumbar wo contrast MRI [facility] 13:53:00-00:00 Clinical Indication: Weakness Comparison: CT abdomen and [...] stenosis throughout the lumba r spine. SL: [id number] 2015-06-[address] [facility] 11:44:20-00:00 TECHNIQUE: Contiguous transa xial images of the [...] common iliac arteries. Maximum diameter of the aor ta is noted just above the b ifurcation and measures approximately 6 cm in the AP dimension. No prior imaging is available for comparison. There is no periaortic edema. No significant free fluid is present in the abdomen or pelvis. Bone and Soft tissues: No significant bony abnor mality is noted. CT PELVIS: The bladder, seminal vesicle s and the prostate are unremarkable in appearance, given the limitation of lack of IV contrast. Prostatic calcifications. No free fluid is present in the pelvis. There are cuevas rgical clips noted in the region of [...] CT of the abdomen and pelvis. SL: [id number] 2015-06-20 Portable chest: The cardiome diastinal silhouette and pulmonary vasculature are within normal limits. The lungs and pleural spaces are clear. There are no acute osseous abnormalities. There is no significant change compared to 07/06/2013. [facility] 10:23:09-00:00 IMPRESSION: No acute radiographic abnormality in the chest. SL 13
--- NOTE | 2022-08-14 13:26 | RAD REPORT ---
EXAM DESCRIPTION: RAD - Ankle Right 3 View - 08/14/2022 1:06 pm CLINICAL HISTORY: SMASH INJURY COMPARISON: No comparisons FINDINGS: There is a large plantar calcaneal spur. Moderate atherosclerosis. Mild soft tissue swelli ng without fracture seen.
--- NOTE | 2022-08-14 13:27 | RAD REPORT ---
EXAM DESCRIPTION: RAD - Foot Right 3 View - 08/14/2022 1:06 pm CLINICAL HISTORY: SMASH INJURY COMPARISON: No comparisons FINDINGS: Old trauma affects distal fifth metatarsal. Large plantar calcaneal spur. Mild atheroscler osis. No acute fracture or dislocation.
--- NOTE | 2022-08-14 14:29 | ER ---
Nurse's Notes [facility] Name: Stan Jimenes Age: 67 yrs Sex: Male : 1955 Arrival Date: 08/14/2022 Time: 12:29 Bed 10 Private MD: Diagnosis: Right ankle sprain, calcaneal spur Presentation: 08/14 12:41 Chief complaint: Patient states: Pt reports right foot and right ankle pain onset 3 cm10 days ago. Pts reports that pt got a cramp in his foot and his foot twisted while having the cramp. Pt denies injury or trauma. Coronavirus screen: Vaccine status: Patient reports receiving the 2nd dose of the covid vaccine. Client denies travel out of the [place] in the last 14 days. At this time, the client does not indicate any symptoms associated with coronavirus-19. Ebola Screen: No symptoms or risks identified at this time. 12:41 Method Of Arrival: Ambulatory cm10 12:42 Initial Sepsis Screen: Does the patient meet any 2 criteria? No. Patient's initial cm10 sepsis screen is negative. Does the patient have a suspected source of infection? No. Patient's initial sepsis screen is negative. Risk Assessment: Do you want to hurt yourself or someone else? Patient reports no desire to harm self or others. Onset of symptoms was August 11, 2022. 12:42 Acuity: CHAVA 4 cm10 Triage Assessment: 12:44 General: Appears in no apparent distress. comfortable, Behavior is calm, cooperative. cm10 Pain: Complains of pain in right foot. Historical: - Allergies: 12:43 iodine; cm10 - PMHx: 12:43 "Dialysis for the stomach, not the blood"; AAA; Aneurysm; COPD; Diabetes - NIDDM; Gout; cm10 High Cholesterol; Hypertension; POLYCYSTIC KIDNEY DISEASE; - Immunization history:: Adult Immunizations unknown. - Social history:: Smoking status: Patient denies any tobacco usage or history of. Screenin:58 [facility] ED Fall Risk Assessment (Adult) History of falling in the last 3 months, os including since admission Yes- single mechanical fall (1 pt) Confusion or Disorientation No (0 pts) Intoxicated or Sedated No (0 pts) Impaired Gait No (0 pts) Mobility Assist Device Used No (0 pt) Altered Elimination No (0 pt) Score/Fall Risk Level 0 - 2 = Low Risk. Abuse screen: Denies threats or abuse. Nutritional screening: No deficits noted. Tuberculosis screening: No symptoms or risk factors identified. Assessment: 12:59 Reassessment: No changes from previously documented assessment. Patient is alert, os oriented x 3, equal unlabored respirations, skin warm/dry/pink. General: Appears in no apparent distress. Behavior is calm, cooperative, appropriate for age. Pain: Complains of pain in right ankle pain when adducting. Neuro: No deficits noted. Cardiovascular: No deficits noted. Respiratory: No deficits noted. Vital Signs: 12:42 BP 124 / 81; Pulse 99; Resp 18; Temp 99(TE); Pulse Ox 97% on R/A; Weight 104.78 kg; cm10 Height 6 ft. 2 in. ; Pain 6/10; 15:22 BP 142 / 78; Pulse 88; Resp 17; Pulse Ox 98% ; ll1 12:42 Body Mass Index 29.66 (104.78 kg, 187.96 cm) cm10 12:42 Pain Scale: Adult cm10 ED Course: 12:32 Patient arrived in ED. mr 12:39 Xenia Toro MD is Attending Physician. sp3 12:43 Triage completed. cm10 12:44 Arm band placed on Patient placed in an exam room, on a stretcher. cm10 12:57 Jose L Olmedo, RN is Primary Nurse. os 12:58 Patient has correct armband on for positive identification. Placed in gown. Bed in low os position. Call light in reach. Side rails up X 1. Side rails up X2. Adult w/ patient. 12:58 No provider procedures requiring assistance completed. os 13:08 Foot Right 3 View XRAY In Process Unspecified. EDMS 13:08 Ankle Right 3 View XRAY In Process Unspecified. EDMS Administered Medications: No medications were administered Medication: 12:59 VIS not applicable for this client. os Outcome: 14:28 Discharge ordered by . sp3 15:23 Discharged to home ambulatory. ll1 15:23 Condition: good 15:23 Discharge instructions given to patient, family, Instructed on discharge instructions, follow up and referral plans. valdez wrap Demonstrated understanding of instructions, follow-up care. 15:24 Patient left the ED. ll1 Signatures: Dispatcher [facility] SANG Retana Megan mr Марина Bowman RN RN ll1 Xenia Toro MD MD sp3 Jose L Olmedo RN RN os Celine Pereyra RN RN cm10 Corrections: (The following items were deleted from the chart) 12:44 12:43 Allergies: No Known Allergies; cm10 cm10
--- NOTE | 2022-08-14 14:29 | EDPHYS ---
Physician Documentation [facility] Name: Stan Jimenes Age: 67 yrs Sex: Male : 1955 Arrival Date: 08/14/2022 Time: 12:29 Bed 10 Private MD: ED Physician Xenia Toro HPI: 08/14 13:18 This 67 yrs old Male presents to ER via Ambulatory with complaints of Foot Pain, Feet sp3 Swelling. 13:18 67-year-old male with history of peritoneal dialysis, AAA, COPD, among others now sp3 presents with chief complaint right foot and ankle pain secondary to twisting/sprain injury approximately 2 days ago. This happened while he was "working in the yard" and was reported as traumatic in nature. Patient has not had any prolonged immobilization, travel history, and has no swelling other than the "outside of the ankle". He denies any headache, neck pain, shortness of breath, chest pain, abdominal pain, secondary injury, rash, or any other signs or symptoms on ROS at this time.. Historical: - Allergies: 12:43 iodine; cm10 - PMHx: 12:43 "Dialysis for the stomach, not the blood"; AAA; Aneurysm; COPD; Diabetes - NIDDM; Gout; cm10 High Cholesterol; Hypertension; POLYCYSTIC KIDNEY DISEASE; - Immunization history:: Adult Immunizations unknown. - Social history:: Smoking status: Patient denies any tobacco usage or history of. ROS: 13:19 Constitutional: Negative for fever, chills, and weight loss, Eyes: Negative for injury, sp3 pain, redness, and discharge, Neck: Negative for injury, pain, and swelling, Cardiovascular: Negative for chest pain, palpitations, and edema, Respiratory: Negative for shortness of breath, cough, wheezing, and pleuritic chest pain, Abdomen/GI: Negative for abdominal pain, nausea, vomiting, diarrhea, and constipation, Back: Negative for injury and pain, Skin: Negative for injury, rash, and discoloration, Neuro: Negative for headache, weakness, numbness, tingling, and seizure, Psych: Negative for depression, anxiety, suicide ideation, homicidal ideation, and hallucinations, Allergy/Immunology: Negative for hives, rash, and allergies, Endocrine: Negative for neck swelling, polydipsia, polyuria, polyphagia, and marked weight changes. 13:19 All other systems are negative. Exam: 13:19 Constitutional: This is a well developed, well nourished patient who is awake, alert, sp3 and in no acute distress. Head/Face: Normocephalic, atraumatic. Neck: Trachea midline, no thyromegaly or masses palpated, and no cervical lymphadenopathy. Supple, full range of motion without nuchal rigidity, or vertebral point tenderness. No Meningismus. Chest/axilla: Normal chest wall appearance and motion. Nontender with no deformity. No lesions are appreciated. Cardiovascular: Regular rate and rhythm with a normal S1 and S2. No gallops, murmurs, or rubs. Normal PMI, no JVD. No pulse deficits. Respiratory: Lungs have equal breath sounds bilaterally, clear to auscultation and percussion. No rales, rhonchi or wheezes noted. No increased work of breathing, no retractions or nasal flaring. Abdomen/GI: Soft, non-tender, with normal bowel sounds. No distension or tympany. No guarding or rebound. No evidence of tenderness throughout. Back: No spinal tenderness. No costovertebral tenderness. Full range of motion. Skin: Warm, dry with normal turgor. Normal color with no rashes, no lesions, and no evidence of cellulitis. Neuro: Awake and alert, GCS 15, oriented to person, place, time, and situation. Cranial nerves II-XII grossly intact. Motor strength 5/5 in all extremities. Sensory grossly intact. Cerebellar exam normal. Normal gait. Psych: Awake, alert, with orientation to person, place and time. Behavior, mood, and affect are within normal limits. 13:19 Musculoskeletal/extremity: Mild lateral swelling without pain at either malleolus, or base of the fifth metatarsal. Patient can bear weight. Distal neurovascular exam is normal. There is no proximal swelling or injury noted.. Vital Signs: 12:42 BP 124 / 81; Pulse 99; Resp 18; Temp 99(TE); Pulse Ox 97% on R/A; Weight 104.78 kg; cm10 Height 6 ft. 2 in. ; Pain 6/10; 15:22 BP 142 / 78; Pulse 88; Resp 17; Pulse Ox 98% ; ll1 12:42 Body Mass Index 29.66 (104.78 kg, 187.96 cm) cm10 12:42 Pain Scale: Adult cm10 MDM: 12:53 Patient medically screened. sp3 13:20 Data reviewed: vital signs, nurses notes, radiologic studies. ED course: 67-year-old sp3 with right foot pain and ankle swelling/sprain. I believe this is purely traumatic in nature and has no medical component. We will obtain x-rays of the foot and ankle and if negative placed on Karan wrap and follow-up with PCP. I do not believe patient has a fracture at this time. Clinically have ruled out DVT/PE, any vascular compromise, sepsis, shock, or any other concerning findings.. 14:27 ED course: X-rays demonstrate no acute injury and only some soft tissue swelling. Bone sp3 spurs are noted. We will Karan wrap patient and discharge him home on Tylenol only given his renal function and follow-up with his PCP.. 08/14 12:53 Order name: Foot Right 3 View XRAY; Complete Time: 14:26 sp3 08/14 12:53 Order name: Ankle Right 3 View XRAY; Complete Time: 14:26 sp3 08/14 14:27 Order name: Karan Wrap: Right ankle; Complete Time: 15:23 sp3 Administered Medications: No medications were administered Disposition Summary: 08/14/22 14:28 Discharge Ordered Location: Home sp3 Condition: Stable sp3 Diagnosis - Right ankle sprain, calcaneal spur sp3 Followup: sp3 - With: Private Physician - When: Upon discharge from the Emergency Department - Reason: If symptoms return, Continuance of care Discharge Instructions: - Discharge Summary Sheet sp3 - Ankle Sprain, [id number] sp3 Forms: - Medication Reconciliation Form sp3 - Thank You Letter sp3 - Antibiotic Education sp3 - Prescription Opioid Use sp3 Signatures: Dispatcher [employer] Xenia Montilla MD MD sp3 Jose L Olmedo RN RN os Martinez, Clarissa, RN RN cm10 Corrections: (The following items were deleted from the chart) 12:44 12:43 Allergies: No Known Allergies; cm10 cm10
[2022-08-14 16:38] VITALS: TEMP 99
[2022-08-14 16:39] VITALS: BP 142/78; O2SAT 98
== END 2022-08-14 15:24 | disposition home or self-care (01) ==
LOC: ER 12:29
DX: S93.401A Sprain of unspecified ligament of right ankle, initial encounter (principal); M77.31 Calcaneal spur, right foot; J44.9 Chronic obstructive pulmonary disease, unspecified; I10 Essential (primary) hypertension; E11.9 Type 2 diabetes mellitus without complications; Z91.048 Other nonmedicinal substance allergy status
CPT/HCPCS: 99283

== ENCOUNTER 2022-09-11 14:05 | Emergency (ER) | payer OTHER ==
[2022-09-11] MEDS ORDERED: FENTANYL CITR 100 MCG/2 ML ONE (14:44)
--- OUTSIDE RECORDS SUMMARY | 2022-09-11 14:48 | XMS REPORT | Continuity of Care Document ---
:1955 Author Organization [facility] t Address [address] [place] [address] Care Team Providers Name Role Phone LEANDRA SALGADO Primary Care Physician Unavailable DAYANA ALFREDO Attending Clinician Unavailable CAMELIA HENSLEY Attending Clinician Unavailable SILVINO COSME Attending Clinician Unavailable BRITTNI NEWBERRY Attending Clinician Unavailable Dayana Alfredo Jr Attending Clinician Brittni Newberry Attending Clinician UNKNOWN, ATTENDING Attending Clinician Unavailable Unknown, Attending Attending Clinician Unavailable MASON ELLIOTT Attending Clinician Unavailable DR ALBINA WILKINS Attending Clinician Unavailable Silvino Cosme Attending Clinician ELENA TEIXEIRA Attending Clinician Unavailable Elena Teixeira Attending Clinician IDA MILNER Attending Clinician Unavailable Ida Milner Attending Clinician Ciro Toro Attending Clinician Manuel ARCOS, Gus Attending Clinician Maged ARCOS, Ke Burnette Attending Clinician [phone] Shaikh JOSSELYN, Giancarlo Attending Clinician Jeronimo ARCOS, Jaret Valle Attending Clinician [phone] Lisa ARCOS, David Attending Clinician Julia Clements DO Attending Clinician Dylon Krishnamurthy CRNA Attending Clinician [phone] CAMELIA HENSLEY Attending Clinician Unavailable Camelia Hensley Attending Clinician Teixeira MD, Elena Attending Clinician [phone] CHICO MCARTHUR Attending Clinician Unavailable Chico Mcarthur Attending Clinician Mai ARCOS, Maryan Zuleta Attending Clinician Jeremy Cool MD Attending Clinician Chico Mcarthur MD Attending Clinician Dominique Nelson MD Attending Clinician Brittni Del Valle DO Attending Clinician [phone] Jazmyn Torres MD Attending Clinician Julian Rivero MD Attending Clinician Isabelle Wetzel MD Attending Clinician Violette Azul Attending Clinician Abbi Mccain MA Attending Clinician Unavailable Kenia ARCOS, Constantin Attending Clinician Treva ARCOS, Serge Hillman Attending Clinician [phone] Ollie Rolle MD Attending Clinician KATEY LASSITER Attending Clinician Unavailable Maikol ARCOS, Katey Attending Clinician SILVINO COSME M.D. Attending Clinician Unavailable ORGANTRANSPLANT, OP Attending Clinician Unavailable Arnaldo Blackman Attending Clinician YURI MALOLRY M.D. Attending Clinician UnavailCAMELIA Ayala M.D. Attending Clinician Unavailable Katey Lassiter Attending Clinician Lucila Healy Attending Clinician Damion Monson Attending Clinician Brigido Menendez Attending Clinician Geraldo Thornton Attending Clinician Segundo Lugo Attending Clinician DAYANA ALFREDO Admitting Clinician Unavailable CHAYO MOTA Admitting Clinician Unavailable MASON ELLIOTT Admitting Clinician Unavailable DR ALBINA WILKINS Admitting Clinician Unavailable Ciro Toro Admitting Clinician KE GU Admitting Clinician Unavailable ELENA TEIXEIRA Admitting Clinician Unavailable Elena Teixeira Admitting Clinician [phone] Elena Teixeira MD Admitting Clinician [phone] JEREMY COOL Admitting Clinician Unavailable JAZMYN TORRES Admitting Clinician Unavailable DOMINIQUE NELSON Admitting Clinician Unavailable KATEY LASSITER Admitting Clinician Unavailable Payers Payer Name Policy Type Policy Number Effective Date Expiration Date S ravinder AETNA CHOICE POS II [id number] 2017 00:00:00 MEDICARE PART A \\T\\ [id number] 2017 B 00:00:00 [employer] COMMERCIAL [id number] 2020 OUT OF NETWORK 00:00:00 [id number] 1961 00:00:00 [id number] 1961 00:00:00 Problems Condition Condition Condition Status Onset Resolution Last Treating Co mments Source Name Details Category Date Date Treatment Clinician Date HLA LABS HLA LABS Diagnosis Active 2022-09-10 Memoria Active 09-09 14:47:00 l 09/09/2022 00:00: Oni gutierrez [address] End stage End Diagnosis Active 2022-09-01 Memoria renal stage 08-01 06:38:39 l disease renal 00:00: Zen (disorder) disease 00 (disorder) Active 08/01/2022 Diagnosis 09/01/2022 [facility] LABS LABS Diagnosis Active 2022-09-11 Mem oria Active 07-31 08:21:00 l 07/31/2022 11:00: Oni gutierrez [address] End stage End stage Diagnosis Active 2022-08-03 Memoria renal renal 07-05 06:55:11 l disease disease 00:00: Zen (disorder) (disorder) 00 Active 07/05/2022 Diagnosis 08/03/2022 [facility] HLA LABS HLA LABS Diagnosis Active 2022-07-07 Memoria ONLY ONLY 07-02 11:27:00 l Active 00:00: Zen 07/02/2022 00 [facility] PRE-RENAL PRE-RENAL Diagnosis Active 2022-06-17 Memoria LISTED LISTED 06-11 15:07:00 l UPDATE UPDATE 11:00: Zen Active 00 06/11/2022 [facility] Urinary Urinary Disease Active [place] frequency frequency 3-05 Heal th 00:00: 00 LABS ONLY LABS ONLY Diagnosis Active 2022-04-11 Memoria Active 04-09 12:34:00 l 04/09/2022 11:00: Oni gutierrez [address] Glycosuria Glycosuria Disease Active U T 8-29 Health 00:00: 00 Lung Lung Disease Active [place] nodules nodules 829 Health 00:00: 00 LISTED LISTED Diagnosis Active 2021-09-25 Me moria UPDATE UPDATE 09-06 07:35:00 l Active 00:00: Zen 09/06/2021 00 [facility] OPEN OPEN Diagnosis Active 2021-07-12 Mem oria ENCOUNTER ENCOUNTER 06-07 13:02:00 l Active 00:00: Zen 06/07/2021 00 [facility] REPEAT REPEAT Diagnosis Active 2021-11-12 Me cho TSPOT TSPOT 06-07 09:11:00 l Active 00:00: Zen 06/07/2021 00 [facility] Vitamin D Vitamin D Disease Active [place] deficiency deficiency 04-29 He alth , , 00:00: unspecifie unspecifie 00 d d Other Other Disease Active [place] fatigue fatigue 04-29 Health 00:00: 00 LISTED LISTED Diagnosis Active 2021-04-08 Me michaelyuri UPDATE UPDATE 04-04 12:02:00 l VISIT VISIT 00:00: Zen Active 00 04/04/2021 [facility] MGUS EVAL MGUS EVAL Diagnosis Active 2021-02-06 Memoria Active 11-27 09:09:00 l 11/27/2020 00:00: Oni gutierrez [address] 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 10-22 He alth sm sm 00:00: 00 Weakness Weakness Disease Active [facility] di [facility] 00:00: Hospita 00 l SHINGLES SHINGLES Diagnosis Active 2020-12-27 Memoria #2 AND #2 AND 6-16 11:20:00 l PNEUMOVAX PNEUMOVAX 00:00: Herm nora Active 00 08/15/2020 [facility] Night-time Night-kevin Problem Active 2021-07-24 Memoria intermitte e 07-31 07:01:40 l nt intermitte 00:00: Oni gutierrez peritoneal nt 00 dialysis peritoneal (procedure dialysis ) (procedure ) Active 07/31/2020 Problem 07/24/2021 pt has PD 9 hours per night while sleeping [facility] Malpositio Malpositio Disease Active M ethsarah n of n of -[address] st peritoneal [...] JAYESH Active 00:00: Oni n 06/13/2020 00 [facility] PRE-TRANSP PRE-TRANS Diagnosis Active 2020-07-02 Memoria LANT EVAL PLANT EVAL 05-30 09:01:00 l FOR KIDNEY FOR KIDNEY 00:00: Ld shah TRANSPLAN TRANSPLAN 00 Active 05/30/2020 [facility] N18.9 - N18.9 - Diagnosis Active 2020-05-13 Memoria CHRONIC CHRONIC 2-10 15:13:00 l KIDNEY KIDNEY 00:01: Zen DISEASE, DISEASE, 00 UNSPEC N UNSPEC N Active 04/11/2020 LAURA Zaldivar NON LISTED NON Diagnosis Active 2020-04-25 Memoria UPDATE LISTED 03-16 08:24:00 l UPDATE 00:00: Zen Active 00 03/16/2020 [facility] ESRD ESRD Diagnosis Active 2020-04-25 Mem oria Active 03-16 12:53:00 l 03/16/2020 00:00: Oni gutierrez [address] HLA MAIL HLA MAIL Diagnosis Active 2020-03-15 Memoria IN LABS IN LABS 11-20 16:33:00 l Active 00:00: Zen 11/21/2019 00 [facility] History of History of Disease Active U [...] melendez PREPROCEDU PREPROCEDU 00 Active 09/06/2019 [facility] [place] NEW NEW Diagnosis Active 2020-03-01 Mem oria ENCOUNTER ENCOUNTER 07-21 05:58:00 l CREATED CREATED 00:00: [place] Active 00 07/22/2019 [facility] LABH LABH Diagnosis Active 2019-05-13 Mem oria Active 05-08 08:44:00 l 05/09/2019 11:00: Oni gutierrez [address] F/U F/U Diagnosis Active 2019-04-01 Mem oria Active 03-17 09:26:00 l 03/17/2019 00:00: Oni gutierrez [address] FOLLOW UP FOLLOW UP Diagnosis Active 2019-04-04 Memoria Active 03-08 07:14:00 l 03/08/2019 00:00: Oni gutierrez [address] D47.2 - D47.2 - Diagnosis Active 2019-05-19 Memoria MONOCLONAL MONOCLONAL 06-25 13:49:00 l GAMMOPATHY GAMMOPATHY 00:01: Ld almanzarann Active 00 06/25/2018 LAURA Zaldivar CKD 9 CKD 9 Diagnosis Active 2018-05-12 Mem oria CHRONIC CHRONIC 04-23 09:07:00 l KIDNEY KIDNEY 00:00: Zen DISEASE DISEASE 00 Active 04/23/2018 [facility] ELEVATED ELEVATED Diagnosis Active 2018-10-20 Memoria GAMMA GAMMA 04-22 12:47:00 l GLOBULIN/ GLOBULIN/ 00:00: Joseph melendez PRE PRE 00 -KIDNEY -KIDNEY WOR WOR Active 04/22/2018 [facility] KIDNEY/DO KIDNEY/DO Diagnosis Active 2022-05-14 Memoria NOT USE NOT USE 04-06 11:35:00 l FOR FOR 06:00: Zen CHARGES CHARGES 00 F/C NOTES F/C NOTES Active 04/06/2018 [facility] ESRD EVAL ESRD EVAL Diagnosis Active 2018-07-23 Memoria Active 2- 08:22:00 l 04/05/2018 00:00: Oni gutierrez [address] NEW NEW Diagnosis Active 2018-04-26 Mem oria EVALUATION EVALUATION 03-18 14:53:00 l Active 00:00: [place] 03/18/2018 00 [facility] Z87.891 - Z87.891 - Diagnosis Active 2017-10-24 Memoria PERSONAL PERSONAL 7- 15:42:00 l HISTORY OF HISTORY OF 00:01: He rmann NICOTINE D NICOTINE D 00 Active 09/08/2017 [facility] [place] WEAKNESS WEAKNESS Diagnosis Active 2016-11-03 Memoria Active 11-03 10:50:00 l 11/03/2016 00:00: Oni gutierrez [facility] [place] 00 [place] THROAT THROAT Diagnosis Active 2015-09-10 Mn moria PAIN PAIN 09-09 14:15:00 l Active 00:00: Zen 09/10/2015 00 [facility] [place] CHEST PAIN CHEST Diagnosis Active 2015-06-20 [facility] PAIN 06-18 10:33:00 l Active 00:00: [place] 06/19/2015 00 [facility] History of History Problem Active 2021-07-24 Memoria - aortic of - 05-31 07:01:40 l aneurysm aortic 00:00: 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 06/01/2015 Problem 07/24/2021 had repair [facility] 491.20 - 491.20 - Diagnosis Active 2013-10-21 Memoria OBST CHR OBST CHR 712 10:38:00 l BRONC BRONC 00:01: Zen Active 00 09/10/2012 [facility] History of History of Problem Resolve UT [...] dysfunctio dysfunctio Ph ysici n n ans Dysphagia Dysphagia Problem Active 2021-07-24 Memoria (disorder) (disorder) 07:01:40 l Active [place] Problem 07/24/2021 [facility] Gastroesop Gastroeso Problem Active 2021-12-09 Memoria hageal phageal 23:34:32 l reflux reflux [place] disease disease (disorder) (disorder) Active Problem 12/09/2021 Data migrated from [employer] on 07/29/14. Medical Group,[facility] ,[facility], Diana Xavier LAURA Zaldivar, [facility] Final: Final: Problem 2015-06-23 Mem oria Weakness Weakness 04:12:43 l 06/23/2015 Oni Xavier Final: Final: Problem 2015-06-23 Jonathan kayden Abdominal Abdominal 04:12:43 l aortic aortic [place] aneurysm, aneurysm, without without rupture rupture 06/23/2015 [...] n (disorder) (disorder) Resolved Problem 12/09/2021 Medical Group,[facility], Diana Xavier, [facility] Xavier[facility] Diabetic Diabetic Problem Resolve 2021-12-09 Memoria neuropathy neuropathy d 23:34:32 l (disorder) (disorder) He rmann Resolved Problem 12/09/2021 Medical Group,[facility], LAURA Zaldivar, LAURA Xavier Hyperchole Hyperchol Problem Active 2021-12-09 Memoria sterolemia esterolemi 23:34:32 l (disorder) a Oni n (disorder) Active Problem 12/09/2021 Data migrated from [employer] on 07/29/14. Medical Group,[facility] ,[facility], Diana Xavier, LAURA XavierM [facility] Swallowing Swallowin Problem Active 2021-07-24 Memoria painful g painful 07:01:40 l (finding) (finding) Herm nora Active Problem 07/24/2021 [facility] Obstructiv Obstructi Problem Active 2021-07-24 Memoria e sleep ve sleep 07:01:40 l apnea apnea [place] syndrome syndrome (disorder) (disorder) Active Problem 07/24/2021 Has CPAP does not use [facility] Essential Essential Problem Active 2021-12-09 Memoria hypertensi hypertensi 23:34:32 l on on [place] (disorder) (disorder) Active Problem 12/09/2021 Data migrated from [employer] on 07/29/14. Medical Group,[facility], Diana Xavier, [facility] Hypogonadi Hypogonad Problem Active 2021-12-09 Memoria sm ism 23:34:32 l (disorder) (disorder) He rmann Active Problem 12/09/2021 Data migrated from [employer] on 07/29/14. 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 07:01:40 l kidney kidney [place] disease disease (disorder) (disorder) Active Problem 07/24/2021 pt is on PD every night [facility] ABDOMINAL ABDOMINAL Diagnosis Active 2019-04-01 Memoria DISTENSION DISTENSION 09:26:00 l (GASEOUS) (GASEOUS) Herm nora Active [facility] ENCOUNTER ENCOUNTER Diagnosis Active 2019-05-13 Memoria FOR FOR 08:44:00 l PREPROCEDU PREPROCEDU He rmann RAL RAL LABORATORY LABORATORY E E Active [facility] Ulcer of Ulcer of Problem Active 2021-07-24 Memoria esophagus esophagus 07:01:40 l (disorder) (disorder) He rmann Active Problem 07/24/2021 [facility] OTHER OTHER Diagnosis Active 2020-07-02 Mem oria SPECIFIED SPECIFIED 09:01:00 l 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 Active [facility] N48.6 - N48.6 - Diagnosis Active 2021-05-09 [...] Oni n UNSPECIFIE UNSPECIFIE D D Active [facility] ENCOUNTER ENCOUNTER Diagnosis Active 2018-05-12 Memoria FOR OTHER FOR OTHER 09:07:00 l PREPROCEDU PREPROCEDU He rmann RAL EXAMIN RAL EXAMIN Active [facility] Constipati Constipat Problem Active 2021-07-24 Memoria on ion 07:01:40 l (disorder) (disorder) He rmann Active Problem 07/24/2021 [facility] Antibiotic Problem Active 2022-09-01 M emoria prophylaxi Antibiotic 06:38:39 l s prophylaxi Oni n indicated s (context-d indicated ependent (context-d category) ependent category) Active Problem 09/01/2022 Medical Group,[facility], LAURA Zaldivar, LAURA Xavier,[facility] Arthritis Arthritis Problem Active 2022-09-01 Memoria (disorder) (disorder) 06:38:39 l Active [place] Problem 09/01/2022 Medical Group,[facility], LAURA Zaldivar, LAURA Xavier,[facility] 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 Active Problem 09/01/2022 Medical Group,[facility], LAURA Zaldivar, LAURA Xavier,[facility] Benign Benign Problem Active 2022-09-01 Jonathan kayden prostatic prostatic 06:38:39 l hyperplasi hyperplasi He rmann a a (disorder) (disorder) Active Problem 09/01/2022 Medical [facility],RUSTI ,[facility], LAURA Zaldivar, [facility] Bladder Bladder Problem [facility] 2022-09-[facility] dysfunctio 06:38:39 l n n Zen (finding) (finding) Active Problem 09/01/2022 Medical Group,[facility], LAURA Zaldivar, [facility] Blood Blood Problem Active 2022-09-01 Memor ia coagulatio coagulatio 06:38:39 l n disorder n disorder He rmann (disorder) (disorder) Active Problem 09/01/2022 Medical Group,[facility], LAURA Zaldivar, LAURA Xavier,[facility] Chronic Chronic Problem Active 2022-09-01 Me moria kidney kidney 06:38:39 l disease disease [place] (disorder) (disorder) Active Problem 09/01/2022 Medical Group,[facility], LAURA Zaldivar, [facility] Chronic Chronic Problem Active 2022-09-01 Mn moria obstructiv obstructiv 06:38:39 l e lung e lung Zen disease disease (disorder) (disorder) Active Problem 09/01/2022 Medical Group,[facility], [place],[facility] LAURA basilio, LAURA Zaldivar, LAURA Xavier,[facility] Inflammato Inflammat Problem Active 2022-09-01 Memoria ry disease ory 06:38:39 l of liver disease of Herm nora (disorder) liver (disorder) Active Problem 09/01/2022 Medical Group,[facility], LAURA Zaldivar, LAURA Xavier,[facility] Low Low Problem Active 2022-09-01 Memor ia compliance compliance 06:38:39 l bladder bladder Zen (disorder) (disorder) Active Problem 09/01/2022 Medical Group,[facility], LAURA Zaldivar, LAURA Xavier,[facility] Microscopi Microscop Problem Active 2022-09-01 Memoria c ic 06:38:39 l hematuria hematuria Herm nora (disorder) (disorder) Active Problem 09/01/2022 Medical Group,[facility], LAURA Zaldivar, LAURA Xavier,[facility] Morbid Morbid Problem Active 2022-09-01 Jonathan kayden obesity obesity 06:38:39 l (disorder) (disorder) He rmann Active Problem 09/01/2022 [facility], LAURA Zaldivar, LAURA Xavier,[facility] Patient Patient Problem Active 2022-09-01 Me moria encounter encounter 06:38:39 l status status [place] (finding) (finding) Active Problem 09/01/2022 [facility], LAURA Zaldivar, LAURA Xavier,[facility] Proteinuri Proteinur Problem Active 2022-09-01 Memoria a ia 06:38:39 l (finding) (finding) Herm nora Active Problem 09/01/2022 [facility], LAURA Zaldivar, LAURA Xavier,[facility] Gout Gout Problem Active 2015-06-23 2021-12-09 naya (disorder) (disorder) - 04:12:43 23:34:32 l Active 05:00: [place] Problem 00 12/09/2021 Data migrated from [employer] on 07/29/14. Medical Group,[facility] ,[facility],Diana Mackey,[facility] History of Past Illness Condition Condition Condition Status Onset Resolution Last Treating Co mments Source Name Details Category Date Date Treatment Clinician Date Ulcer of Ulcer of Problem 2021-07-24 2021-07-24 Memoria esophagus esophagus 07-23 07:01:40 07:01:40 l without without 17:00: [place] bleeding bleeding 00 07/23/2021 07/24/2021 [facility] Hypomagnes Problem 2016-11-06 2016-11-06 Memoria emia Hypomagnes 11-03 00:37:30 00:37:30 l emia 05:00: [place] 11/03/2016 00 11/06/2016 [facility] Weakness Weakness Problem 2016-11-06 2016-11-06 Memoria 11/03/201611-03 00:37:30 00:37:30 l 11/06/2016 05:00: Oni gutierrez 00 [place] Other Other Problem 2016-11-06 2016-11-06 M emoria disorders disorders 11-03 00:37:30 00:37:30 l of of 05:00: Zen phosphorus phosphorus 00 metabolism metabolism 11/03/2016 11/06/2016 [facility] Discharge Discharge Problem 2015-09-13 2015-09-13 Memoria Diagnosis: Diagnosis: 09-09 03:04:21 03:04:21 l Sore Sore 05:00: [place] throat throat 00 09/10/2015 09/13/2015 [facility] Discharge Problem 2015-09-13 2015-09-13 Memoria Diagnosis: Discharge 09-09 03:04:21 03:04:21 l Foreign Diagnosis: 05:00: Mehreen nn body (FB) Foreign 00 in soft body (FB) tissue in soft (Throat) tissue (Throat) 09/10/2015 09/13/2015 [facility] Discharge Discharge Problem 2015-06-23 [facility] Diagnosis: 06-19 04:12:43 04:12:43 l Weakness Weakness 05:00: Oni n 06/20/2015 00 06/23/2015 [facility] Discharge Discharge Problem 2015-06-23 2015-06-23 Malia Diagnosis: Diagnosis: 4-20 04:12:43 04:12:43 l Chronic Chronic 05:00: Zen back pain back pain 00 06/20/2015 6 [facility] Discharge Discharge Problem 2015-06-23 2015-06-23 Memshannon Diagnosis: Diagnosis: 4-20 04:12:43 04:12:43 l History of History of 05:00: He rmann AAA AAA 00 (abdominal (abdominal aortic aortic aneurysm) aneurysm) repair repair 06/20/2015 06/23/2015 [facility] Allergies, Adverse Reactions, Alerts Allergy Allergy Status Severity Reaction(s) Onset Inactive Treating Comm ents Source Name Type Date Date Clinician No Known DA Active [facility] (LUF/LI V/SA) NO KNOWN Drug Active [facility] ALLERGIE Class [facility] No Known No Known Active Memori a Medicati Medicati l on on [place] Allergie Allergie s s Family History Family Member Diagnosis Comments Start Date Stop Date Source Natural mother No Known Problems Met [facility] Natural father Kidney disease Method [facility] Natural father Polycystic kidney Met [facility] disease Father Family history of End [facility] stage renal disease Father Family history [facility] Kidney transplant recipient Father Family history of [facility] Polycystic kidney Social History Social Habit Start Date Stop Date Quantity Comments Source Gender identity [facility] Sexual orientation [facility] History of tobacco [facility] use Exposure to 2022-06-16 2022-06-26 Not sure University of SARS-CoV-2 (event) 00:00:00 16:36:00 [facility] History of Social [address] function 00:00:00 00:00:00 Hospital Alcohol intake 2021-05-24 2021-05-24 Current drinker [facility] dist 00:00:00 00:00:00 of alcohol Hospital (finding) Alcohol Comment 2020-07-20 2020-07-20 less than Scientologist 00:00:00 00:00:00 monthly Hospital Cigarettes smoked 2020-07-20 2020-07-[address] current (pack per 00:00:00 00:00:00 Hospita l day) - Reported Cigarette 2020-07-20 2020-07-20 [facility] pack-years 00:00:00 00:00:00 Hospital Tobacco use and 2020-07-20 2020-07-20 Smokeless Scientologist exposure 00:00:00 00:00:00 tobacco non-user [facility] Social History 2020-06-14 2020-06-14 [facility] 13:01:46 13:01:46 Sex [birth year] [employer] 00:00:00 00:00:00 Hospital Smoking Status Start Date Stop Date Source Tobacco smoking [facility] xa consumption unknown Medical Bran Social History [facility] Tobacco smoking status 2021-07-02 18:32:37 2021-07-02 Memor ial [place] 18:32:37 Medications Ordered Filled Start Stop Current Ordering Indication Dosage Frequency Signature Comments Components Source Medication Medication Date Date Medication? Clinician (SIG) Name Name calcitriol Yes 0.5 Memoria 0.5 mcg 4-18 microgram l oral 15:52: = 1 cap, [place] capsule 00 PO, Every Other Day gabapentin Yes 100 mg = 1 M emoria 100 mg oral 4-18 cap, PO, l capsule 15:52: TID, Zen 00 DIRECTED hydrALAZINE 0 Yes 25 mg = 1 M emoria 25 mg oral 4-18 tab, PO, l tablet 15:52: TID [facility] 00 Potassium 0 Yes 20 mEq = 1 Me moria Chloride 4-18 tab, PO, l (Eqv-K-Tab) 15:52: Daily Mehreen nn 20 mEq oral 00 tablet, extended release calcitriol Yes 0.5 Memoria 0.5 mcg 4-18 microgram l oral 15:52: = 1 cap, [facility] capsule 00 PO, Every Other Day gabapentin 0 Yes 100 mg = 1 M emoria 100 mg oral 4-18 cap, PO, l capsule 15:52: TID, [facility] 00 DIRECTED hydrALAZINE 0 Yes 25 mg = 1 M emoria 25 mg oral 4-18 tab, PO, l tablet 15:52: TID [place] 00 Potassium 2022-0 Yes 20 mEq = 1 Me moria Chloride 4-18 tab, PO, l (Eqv-K-Tab) 15:52: Daily Mehreen nn 20 mEq oral 00 tablet, extended release allopurinol 2022-0 Yes 100 mg = 1 Memoria 100 mg oral 4-18 tab, PO, l tablet 15:49: Daily [facility] 00 allopurinol 2022-0 Yes 100 mg = 1 Memoria 100 mg oral 4-18 tab, PO, l tablet 15:49: Daily [place] 00 tamsulosin 3-0 Yes 0.4 mg = 1 M emoria 0.4 mg oral 4-18 cap, PO, l capsule 12:51: Daily, 0 Oni n 00 Refill(s) tamsulosin 3-0 Yes 0.4 mg = 1 M emoria 0.4 mg oral 4-18 cap, PO, l capsule 12:51: Daily, 0 Oni n 00 Refill(s) pantoprazol 3-0 Yes 20 mg = 1 M emoria e 20 mg 4-18 tab, PO, l oral 12:48: BID, 0 [place] [facility] 00 Refill(s) coated tablet pantoprazol 2022-0 Yes 20 mg = 1 M emoria e 20 mg 4-18 tab, PO, l oral 12:48: BID, 0 [facility] 00 Refill(s) coated tablet carvedilol 2022-0 Yes 12.5 mg = Me moria 12.5 mg 4-18 1 tab, PO, l oral tablet 12:46: BID, 0 Herm nora 00 Refill(s) carvedilol 3-0 Yes 12.5 mg = Me moria 12.5 mg 4-18 1 tab, PO, l oral tablet 12:46: BID, 0 Herm nora 00 Refill(s) allopurinol 3-0 Yes 300 mg = 1 Memoria 300 mg oral 4-18 tab, PO, l tablet 12:45: Daily, 0 [place] 00 Refill(s) furosemide 3-0 Yes 80 mg = 1 Me moria 80 mg oral 4-18 tab, PO, l tablet 12:45: Daily, 0 [facility] 00 Refill(s) allopurinol 2023-0 Yes 300 mg = 1 Memoria 300 mg oral 4-18 tab, PO, l tablet 12:45: Daily, 0 [place] 00 Refill(s) furosemide 3-0 Yes 80 mg = 1 Me moria 80 mg oral 4-18 tab, PO, l tablet 12:45: Daily, 0 [place] 00 Refill(s) allopurinol 2022-0 Yes 1{tbl} QD [...] mouth hr capsule 00 every night. calcitriol 2022-0 Yes .5ug Q2D Take 0.5 UT (Rocaltrol) 6-22 mcg by [facility] 0.5 MCG 00:00: mouth capsule 00 every other day. furosemide 2022-0 Yes 80mg QD Take 80 mg U T (Lasix) 80 6-22 by mouth 1 [facility] MG tablet 00:00: (one) time 00 each day. calcitriol Yes .5ug Q2D Take 0.5 UT (Rocaltrol) 6-22 mcg by [facility] 0.5 MCG 00:00: mouth capsule 00 every other day. furosemide Yes 80mg QD Take 80 mg [facility] T (Lasix) 80 6-22 by mouth 1 [facility] MG tablet 00:00: (one) time 00 each day. LR 1,000 mL No 1,000 mL, M emoria 5-24 IV, 75 l 12:45: mL/hr, [facility] 00 start date 07/23/21 7:45:00 CDT, 2.26, m2 Saline Lock No 10 mL, Jonathan kayden Flush 5-24 Soln, IV l 12:45: Push, As Zen 00 Indicated PRN for flush, first dose 07/23/21 [...] e 5-24 0.5 mL, l 12:45: Injection, [place] 00 IM, Once PRN for vomiting, first dose 07/23/21 7:45:00 CDT labetalol No 5 mg = 1 Jonathan kayden 5-24 mL, l 12:45: Injection, IV Push, As [...] MINE 5-24 0.5 mL, l 12:45: Injection, IV Push, Once PRN for itching, first [...] 3 mL, l mL 12:45: Soln, NEB, inhalation Once PRN solution for wheezing, first dose 07/23/21 7:45:00 CDT ondansetron No 4 mg = 2 Me moria 5-24 mL, l 12:45: Injection, IV Push, q15min PRN for nausea, order duration: 2 dose(s)/ti me(s), first dose 07/23/21 7:45:00 CDT, stop date Limited # of times LR 1,000 mL 2022-0 No 1,000 mL, M emoria 5-24 IV, 75 l 12:45: mL/hr, start date 07/23/21 7:45:00 CDT, 2.26, m2 promethazin No 12.5 mg = M emoria e 5-24 0.5 mL, l 12:45: Injection, IM, Once PRN for vomiting, first dose 07/23/21 7:45:00 CDT labetalol No 5 mg = 1 Jonathan kayden 5-24 mL, l 12:45: Injection, IV Push, As [...] MINE 5-24 0.5 mL, l 12:45: Injection, IV Push, Once PRN for itching, first dose 07/23/21 7:45:00 CDT Saline Lock 0 No 10 mL, Jonathan kayden Flush 5-24 Soln, IV l 12:45: Push, As Indicated PRN for flush, first dose 07/23/21 7:45:00 CDT Robinul 0 No 0.2 mg = 1 Jonathan kayden 5-24 mL, l 12:45: Injection, Zen 00 IV Push, Once PRN for bradycardi a, first dose 07/23/21 7:45:00 CDT Xopenex 0 No 0.63 mg = Memor ia 0.63 mg/3 5-24 3 mL, l mL 12:45: Soln, NEB, [place] inhalation 00 Once PRN solution for wheezing, first dose 07/23/21 7:45:00 CDT ondansetron No 4 mg = 2 Me moria 5-24 mL, l 12:45: Injection, Zen 00 IV Push, q15min PRN for nausea, order duration: 2 dose(s)/ti me(s), first dose 07/23/21 7:45:00 CDT, stop date Limited # of times promethazin No 12.5 mg = M emoria e 5-24 0.5 mL, l 12:45: Injection, [place] 00 IM, Once PRN for vomiting, first [...] Jonathan kayden 5-24 mL, l 12:45: Injection, [place] 00 IV Push, Once PRN for bradycardi a, first dose 07/23/21 7:45:00 CDT Xopenex No 0.63 mg = Memor ia 0.63 mg/3 5-24 3 mL, l mL 12:45: Soln, NEB, [place] inhalation 00 Once PRN solution for wheezing, first dose 07/23/21 7:45:00 CDT ondansetron No 4 mg = 2 Me moria 5-24 mL, l 12:45: Injection, [place] 00 IV Push, q15min PRN for nausea, order duration: 2 dose(s)/ti me(s), first dose 07/23/21 7:45:00 CDT, stop date Limited # of times promethazin No 12.5 mg = M emoria e 5-24 0.5 mL, l 12:45: Injection, [place] 00 IM, Once PRN for vomiting, first dose 07/23/21 7:45:00 CDT labetalol No 5 mg = 1 Jonathan kayden 5-24 mL, l 12:45: Injection, 00 IV Push, As Indicated PRN for hypertensi on, first dose 07/23/21 7:45:00 CDT, SBP Hold Parameter: less than 110 mmHg, HR Hold Parameter: less than 60 bpm hydrALAZINE No 10 mg = Mem oria 5-24 0.5 mL, l 12:45: Injection, [place] 00 IV Push, As Indicated PRN for hypertensi on, first dose 07/23/21 7:45:00 CDT, SBP Hold Parameter: less than 110 mmHg diphenhydrA No 25 mg = Mem oria MINE 5-24 0.5 mL, l 12:45: Injection, [place] 00 IV Push, Once PRN for itching, first dose 07/23/21 7:45:00 CDT Misc 0 No 100 mL, Memoria Medication 5-24 Soln-IV, l 12:37: IV, Once, first dose 07/23/21 7:37:00 CDT, stop date 07/23/21 7:37:00 CDT Misc 0 No 100 mL, Memoria Medication 5-24 Soln-IV, l 12:37: IV, Once, first dose 07/23/21 7:37:00 CDT, stop date 07/23/21 7:37:00 CDT Misc 2-0 No 100 mL, Memoria Medication 5-24 Soln-IV, l 12:37: IV, Once, Zen 00 first dose 07/23/21 7:37:00 CDT, stop date 07/23/21 7:37:00 CDT Misc 2-0 No 100 mL, Memoria Medication 5-24 Soln-IV, l 12:37: IV, Once, [place] 00 first dose 07/23/21 7:37:00 CDT, stop date 07/23/21 7:37:00 CDT propofol 2-0 No 40 mg = 4 Jonathan kayden 5-24 mL, l 12:26: Emulsion, Zen 00 IV, Once, first dose 07/23/21 7:26:00 CDT, stop date 07/23/21 7:26:00 CDT lidocaine 2-0 No 20 mg = 1 Mem oria 5-24 mL, l 12:26: Injection, [place] 00 IV, Once, first dose 07/23/21 7:26:00 [...] CDT, stop date 07/23/21 7:26:00 CDT lidocaine 2022-0 No 20 mg = 1 Mem oria 5-24 mL, l 12:26: Injection, Zen 00 IV, Once, first dose 07/23/21 7:26:00 CDT, stop date 07/23/21 7:26:00 CDT propofol 2022-0 No 40 mg = 4 Jonathan kayden 5-24 mL, l 12:26: Emulsion, [place] 00 IV, Once, first dose 07/23/21 7:26:00 CDT, stop date 07/23/21 7:26:00 CDT lidocaine 2022-0 No 20 mg = 1 Mem oria 5-24 mL, l 12:26: Injection, [place] 00 IV, Once, first dose 07/23/21 7:26:00 CDT, stop date 07/23/21 7:26:00 CDT propofol 2022-0 No 80 mg = 8 Jonathan kayden 5-24 mL, l 12:22: Emulsion, [place] 00 IV, Once, first dose 07/23/21 7:22:00 CDT, stop date 07/23/21 7:22:00 CDT lidocaine 2022-0 No 40 mg = 2 Mem oria 5-24 mL, l 12:22: Injection, [place] 00 IV, Once, first dose 07/23/21 7:22:00 CDT, stop date 07/23/21 7:22:00 CDT propofol 2022-0 No 80 mg = 8 Jonathan kayden 5-24 mL, l 12:22: Emulsion, Zen 00 IV, Once, first dose 07/23/21 7:22:00 CDT, stop date 07/23/21 7:22:00 CDT lidocaine 2022-0 No 40 mg = 2 Mem oria 5-24 mL, l 12:22: Injection, [place] 00 IV, Once, first dose 07/23/21 7:22:00 CDT, stop date 07/23/21 7:22:00 CDT propofol 2022-0 No 80 mg = 8 Jonahtan kayden 5-24 mL, l 12:22: Emulsion, [place] 00 IV, Once, first dose 07/23/21 7:22:00 CDT, stop date 07/23/21 7:22:00 CDT lidocaine 2022-0 No 40 mg = 2 Mem oria 5-24 mL, l 12:22: Injection, [place] 00 IV, Once, first dose 07/23/21 7:22:00 [...] CDT, stop date 07/23/21 7:22:00 CDT midazolam 2022-0 No 2 mg = 2 Jonathan kayden 5-24 mL, l 12:21: Injection, Zen 00 IV, Once, first dose 07/23/21 7:21:00 CDT, stop date 07/23/21 7:21:00 CDT ketamine 2-0 No 25 mg = Memori a 5-24 0.5 mL, l 12:21: Injection, [place] 00 IV, Once, first dose 07/23/21 7:21:00 CDT, stop date 07/23/21 7:21:00 CDT midazolam 2-0 No 2 mg = 2 Jonathan kayden 5-24 mL, l 12:21: Injection, [place] 00 IV, Once, first dose 07/23/21 7:21:00 CDT, stop date 07/23/21 7:21:00 CDT ketamine 2-0 No 25 mg = Memori a 5-24 0.5 mL, l 12:21: Injection, Zen 00 IV, Once, first dose 07/23/21 7:21:00 CDT, stop date 07/23/21 7:21:00 CDT midazolam 2-0 No 2 mg = 2 Jonathan kadyen 5-24 mL, l 12:21: Injection, [place] 00 IV, Once, first dose 07/23/21 7:21:00 CDT, stop date 07/23/21 7:21:00 CDT ketamine 2022-0 No 25 mg = Memori a 5-24 0.5 mL, l 12:21: Injection, Zen 00 IV, Once, first dose 07/23/21 7:21:00 CDT, stop date 07/23/21 7:21:00 CDT midazolam 2-0 No 2 mg = 2 Jonathan kayden 5-24 mL, l 12:21: Injection, [place] 00 IV, Once, first dose 07/23/21 7:21:00 CDT, stop date 07/23/21 7:21:00 CDT ketamine 2021-0 No 25 mg = Memori a 5-24 0.5 mL, l 12:21: Injection, Zen 00 IV, Once, first dose 07/23/21 7:21:00 CDT, stop date 07/23/21 7:21:00 CDT LR 1,000 mL 2021-0 No 1,000 mL, M emoria 5-24 IV, 30 l 11:10: mL/hr, Zen start date 07/23/21 6:10:00 CDT, 2.26, m2 Lidocaine 2021-0 No 0.2 mL, Memor ia 2% 0.2 mL 5-24 Injection, l IV Start 11:10: [facility] [[facility]] us, Once PRN for other (see comment), first dose 07/23/21 6:10:00 CDT LR 1,000 mL 2021-0 No 1,000 mL, M emoria 5-24 IV, 30 l 11:10: mL/hr, [place] start date 07/23/21 6:10:00 CDT, 2.26, m2 Lidocaine 2021-0 No 0.2 mL, Memor ia 2% 0.2 mL 5-24 Injection, l IV Start 11:10: [facility] [[facility]] us, Once PRN for other (see comment), first dose 07/23/21 6:10:00 CDT LR 1,000 mL 2021-0 No 1,000 mL, M emoria 5-24 IV, 30 l 11:10: mL/hr, Zen start date 07/23/21 6:10:00 CDT, 2.26, m2 Lidocaine 2021-0 No 0.2 mL, Memor ia 2% 0.2 mL 5-24 Injection, l IV Start 11:10: [facility] [[place]] 00 us, Once PRN for other (see comment), first dose 07/23/21 6:10:00 CDT LR 1,000 mL 2022-0 No 1,000 mL, M emoria 5-24 IV, 30 l 11:10: mL/hr, [place] 00 start date 07/23/21 6:10:00 CDT, 2.26, m2 Lidocaine No 0.2 mL, Memor ia 2% 0.2 mL 5-24 Injection, l IV Start 11:10: [facility]aneo [facility] [[facility]] 00 us, Once PRN for other (see comment), first dose 07/23/21 6:10:00 CDT Potassium Yes TAKE 1 Memori a Chloride 5-23 TABLET BY l (Eqv-K-Tab) 18:15: MOUTH Mehreen nn 20 mEq oral 00 EVERY DAY, tablet, Dialysis extended release pantoprazol Yes TAKE 1 Jonathan kayden e 40 mg 5-23 TABLET BY l oral 18:15: MOUTH [place] delayed 00 TWICE A release DAY, GERD tablet allopurinol Yes TAKE 1 Jonathan kayden 300 mg oral 5-23 TABLET BY l tablet 18:15: MOUTH Zen 00 EVERY DAY, GOUT docusate Yes 100 mg = 1 Mem oria sodium 100 5-23 caps, l mg oral 18:15: Oral, [place] capsule 00 q6hr, PRN as needed for [...] 5-23 TABLET BY l oral 18:15: MOUTH [place] delayed 00 TWICE A release DAY, GERD tablet allopurinol Yes TAKE 1 Jonathan kayden 300 mg oral 5-23 TABLET BY l tablet 18:15: MOUTH Zen 00 EVERY DAY, GOUT docusate Yes 100 mg = 1 Mem oria sodium 100 5-23 caps, l mg oral 18:15: Oral, [place] capsule 00 q6hr, PRN as needed for [...] 5-23 TABLET BY l tablet 18:15: MOUTH [place] 00 EVERY DAY, GOUT docusate Yes 100 mg = 1 Mem oria sodium 100 5-23 caps, l mg oral 18:15: Oral, [place] capsule 00 q6hr, PRN as needed for [...] 5-23 TABLET BY l oral 18:15: MOUTH [place] delayed 00 TWICE A release DAY, GERD [...] 5-23 CAPSULE BY l delayed 18:15: MOUTH [place] release 00 EVERY DAY, capsule GERD hydrALAZINE Yes 25 mg = 1 M emoria 25 mg oral 5-23 tabs, l tablet 18:14: Oral, BID, Mehreen nn 00 0 Refill(s), HTN carvedilol Yes 6.25 mg = Me moria 6.25 mg 5-23 1 tabs, l oral tablet 18:14: Oral, BID, Zen 00 0 Refill(s), HTN tamsulosin 0 Yes 0.4 mg = 1 M emoria 0.4 mg oral 5-23 caps, l capsule 18:14: Oral, [place] 00 Daily, 0 Refill(s), BPH hydrALAZINE 0 Yes 25 mg = 1 M emoria 25 mg oral 5-23 tabs, l tablet 18:14: Oral, BID, Mehreen nn 00 0 Refill(s), HTN carvedilol 0 Yes 6.25 mg = Me moria 6.25 mg 5-23 1 tabs, l oral tablet 18:14: Oral, BID, Zen 00 0 Refill(s), HTN tamsulosin 0 Yes 0.4 mg = 1 M emoria 0.4 mg oral 5-23 caps, l capsule 18:14: Oral, Zen 00 Daily, 0 Refill(s), BPH hydrALAZINE 2021-0 Yes 25 mg = 1 M emoria 25 mg oral 5-23 tabs, l tablet 18:14: Oral, BID, Mehreen nn 00 0 Refill(s), HTN carvedilol 2022-0 Yes 6.25 mg = Me moria 6.25 mg 5-23 1 tabs, l oral tablet 18:14: Oral, BID, Zen 00 0 Refill(s), HTN tamsulosin 2021-0 Yes 0.4 mg = 1 M emoria 0.4 mg oral 5-23 caps, l capsule 18:14: Oral, [place] 00 Daily, 0 Refill(s), BPH hydrALAZINE 2021-0 Yes 25 mg = 1 M emoria 25 mg oral 5-23 tabs, l tablet 18:14: Oral, BID, Mehreen nn 00 0 Refill(s), HTN carvedilol 2021-0 Yes 6.25 mg = Me moria 6.25 mg 5-23 1 tabs, l oral tablet 18:14: Oral, BID, Zen 00 0 Refill(s), HTN tamsulosin 2021-0 Yes 0.4 mg = 1 M emoria 0.4 mg oral 5-23 caps, l capsule 18:14: Oral, Zen 00 Daily, 0 Refill(s), BPH atorvastati 2021-0 Yes 20 mg = 1 M emoria n 20 mg 5-03 tab, PO, l oral tablet 18:50: Bedtime, # [place] 00 90 tab, 1 Refill(s), Pharmacy: [facility] #[id number], 180.34, cm, 07/02/21 13:31:00 CDT, Height, 109.176, kg, 07/02/21 13:31:00 CDT, Weight atorvastati 2021-0 Yes 20 mg = 1 M emoria n 20 mg 5-03 tab, PO, l oral tablet 18:50: Bedtime, # Zen 00 90 tab, 1 Refill(s), Pharmacy: [facility] #[id number], 180.34, cm, 07/02/21 13:31:00 CDT, Height, 109.176, kg, 07/02/21 13:31:00 CDT, Weight atorvastati 2021-0 Yes 20 mg = 1 M emoria n 20 mg 5-03 tab, PO, l oral tablet 18:50: Bedtime, # Zen 00 90 tab, 1 Refill(s), Pharmacy: [facility] #[id number], 180.34, cm, 07/02/21 13:31:00 CDT, Height, 109.176, [...] daily. Hospita capsule 56 :00 l omeprazole 2021-0 2022- No 20mg QD Take 20 mg [...] capsule times a day. acetaminoph 0 Yes [id number] 1{tbl} Q6H Take 1 M ethodi en-codeine [...] a day with meals. ergocalcife 2021-0 Yes [id number] Q30D Take Meth sarah rol 3-25 50,000 [...] capsule times a day. acetaminoph 2021-0 Yes [id number] 1{tbl} Q6H Take 1 M ethodi en-codeine [...] a day with meals. ergocalcife 0 Yes [id number] Q30D Take Meth saarh rol 3-25 50,000 st (VITAMIN 13:43: Units by Hospi ta D2) 50,000 52 mouth l unit every 30 capsule (thirty) days. of every month hydrALAZINE 0 Yes 10mg [...] capsule times a day. acetaminoph 2021-0 Yes [id number] 1{tbl} Q6H Take 1 M ethodi en-codeine [...] a day with meals. ergocalcife 202-0 Yes [id number] Q30D Take Meth sarah rol 3-25 50,000 [...] (two) l capsule times a day. acetaminoph 202-0 Yes [id number] 1{tbl} Q6H Take 1 M ethodi en-codeine [...] 13:43: every Hospita 52 morning. l allopurinoL 2-0 Yes 100mg QD Take 100 M ethodi [...] a day with meals. ergocalcife 2021-0 Yes [id number] Q30D Take Meth sarah rol 3-25 50,000 [...] capsule times a day. acetaminoph 2021-0 Yes [id number] 1{tbl} Q6H Take 1 M ethodi en-codeine [...] a day with meals. ergocalcife 0 Yes [id number] Q30D Take Meth sarah rol 3-25 50,000 [...] (two) l capsule times a day. acetaminoph 202-0 Yes [id number] 1{tbl} Q6H Take 1 M ethodi en-codeine [...] a day with meals. ergocalcife 2022-0 Yes [id number] Q30D Take Meth sarah rol 3-25 50,000 [...] capsule times a day. acetaminoph 2021-0 Yes [id number] 1{tbl} Q6H Take 1 M ethodi en-codeine [...] a day with meals. ergocalcife 2021-0 Yes [id number] Q30D Take Meth sarah rol 3-25 50,000 [...] capsule times a day. acetaminoph 2021-0 Yes [id number] 1{tbl} Q6H Take 1 M ethodi en-codeine [...] a day with meals. ergocalcife 2021-0 Yes [id number] Q30D Take Meth sarah rol 3-25 50,000 [...] capsule times a day. acetaminoph 2021-0 Yes [id number] 1{tbl} Q6H Take 1 M ethodi en-codeine [...] a day with meals. ergocalcife 202-0 Yes [id number] Q30D Take Meth sarah rol 3-25 50,000 [...] capsule times a day. acetaminoph 2021-0 Yes [id number] 1{tbl} Q6H Take 1 M ethodi en-codeine [...] a day with meals. ergocalcife 2021-0 Yes [id number] Q30D Take Meth sarah rol 3-25 50,000 [...] capsule times a day. acetaminoph 2021-0 Yes [id number] 1{tbl} Q6H Take 1 M ethodi en-codeine [...] a day with meals. ergocalcife 2021-0 Yes [id number] Q30D Take Meth sarah rol 3-25 50,000 [...] capsule times a day. acetaminoph 0 Yes [id number] 1{tbl} Q6H Take 1 M ethodi en-codeine [...] a day with meals. ergocalcife 2021-0 Yes [id number] Q30D Take Meth sarah rol 3-25 50,000 [...] capsule times a day. acetaminoph 2021-0 Yes [id number] 1{tbl} Q6H Take 1 M ethodi en-codeine [...] a day with meals. ergocalcife 2021-0 Yes [id number] Q30D Take Meth sarah rol 3-25 50,000 [...] capsule times a day. acetaminoph 2021-0 Yes [id number] 1{tbl} Q6H Take 1 M ethodi en-codeine [...] a day with meals. ergocalcife 2021-0 Yes [id number] Q30D Take Meth sarah rol 3-25 50,000 [...] capsule times a day. acetaminoph 2021-0 Yes [id number] 1{tbl} Q6H Take 1 M ethodi en-codeine [...] 13:43: every Hospita 52 morning. l allopurinoL 2-0 Yes 100mg QD Take 100 M ethodi (ZYLOPRIM) 3-[address] 300 MG 13:43: mouth Hospita tablet 52 daily. l aspirin 2022-0 Yes 81mg QD Take 81 mg Meth sarah (ECOTRIN) 3-[address] 81 MG 13:43: daily. Hospita enteric 52 l coated tablet calcitrioL 2-0 Yes .25ug Q2D Take 0.25 M ethodi (ROCALTROL) 3-[address] 0.25 MCG 13:43: mouth [facility]ospita capsule 52 every l other day. carvediloL 2021-0 Yes 12.5mg Q.5D Take 12.5 [facility] (COREG) 3-[address] 12.5 MG 13:43: mouth 2 Hospita tablet 52 (two) l times a day with meals. ergocalcife 2021-0 Yes [id number] Q30D Take Meth sarah rol 3-25 50,000 [...] capsule times a day. acetaminoph 2021-0 Yes [id number] 1{tbl} Q6H Take 1 M ethodi en-codeine [...] a day with meals. ergocalcife 2021-0 Yes [id number] Q30D Take Meth sarah rol 3-25 50,000 [...] capsule times a day. acetaminoph 0 Yes [id number] 1{tbl} Q6H Take 1 M ethodi en-codeine [...] a day with meals. ergocalcife 0 Yes [id number] Q30D Take Meth sarah rol 3-25 50,000 [...] capsule times a day. acetaminoph 2021-0 Yes [id number] 1{tbl} Q6H Take 1 M ethodi en-codeine [...] Hospita enteric 52 l coated tablet calcitrioL 2022-0 Yes .25ug Q2D Take 0.25 M ethodi (ROCALTROL) 3-[address] 0.25 MCG 13:43: mouth [facility]ospita capsule 52 every l other day. carvediloL 2021-0 Yes 12.5mg Q.5D Take 12.5 [facility] (COREG) 3-[address] 12.5 MG 13:43: mouth 2 Hospita tablet 52 (two) l times a day with meals. ergocalcife 2021-0 Yes [id number] Q30D Take Meth sarah rol 3-25 50,000 [...] capsule times a day. acetaminoph 2021-0 Yes [id number] 1{tbl} Q6H Take 1 M ethodi en-codeine [...] a day with meals. ergocalcife 2021-0 Yes [id number] Q30D Take Meth sarah rol 3-25 50,000 [...] capsule times a day. acetaminoph 2021-0 Yes [id number] 1{tbl} Q6H Take 1 M ethodi en-codeine [...] a day with meals. ergocalcife 2021-0 Yes [id number] Q30D Take Meth sarah rol 3-25 50,000 [...] capsule times a day. acetaminoph 2021-0 Yes [id number] 1{tbl} Q6H Take 1 M ethodi en-codeine [...] Hospita enteric 52 l coated tablet calcitrioL 2022-0 Yes .25ug Q2D Take 0.25 M ethodi (ROCALTROL) 3-[address] 0.25 MCG 13:43: mouth Hospita capsule 52 every l other day. carvediloL 2022-0 Yes 12.5mg Q.5D Take 12.5 [facility] (COREG) 3-[address] 12.5 MG 13:43: mouth 2 Hospita tablet 52 (two) l times a day with meals. ergocalcife 2022-0 Yes [id number] Q30D Take Meth sarah rol 3-25 50,000 st (VITAMIN 13:43: Units by Hospi ta D2) 50,000 52 mouth l unit every 30 capsule (thirty) days. every month hydrALAZINE 2022-0 Yes 10mg Q.5D [...] Hospita enteric 52 l coated tablet calcitrioL 2022-0 Yes .25ug Q2D Take 0.25 M ethodi (ROCALTROL) 3-[address] 0.25 MCG 13:43: mouth Hospita capsule 52 every l other day. carvediloL 2022-0 Yes 12.5mg Q.5D Take 12.5 [facility] (COREG) 3-[address] 12.5 MG 13:43: mouth 2 Hospita tablet 52 (two) l times a day with meals. ergocalcife 2022-0 Yes [id number] Q30D Take Meth sarah rol 3-25 50,000 st (VITAMIN 13:43: Units by Hospi ta D2) 50,000 52 mouth l unit every 30 capsule (thirty) days. every month hydrALAZINE 2022-0 Yes 10mg Q.5D [...] capsule times a day. acetaminoph 2021-0 Yes [id number] 1{tbl} Q6H Take 1 M ethodi en-codeine [...] daily with dinner for 30 days. sucralfate 2021-0 2022- No 1g Q.25D Take 10 mL [...] l tablet daily for 30 days. tamsulosin 2021- No .4mg QD Take 1 Meth sarah (FLOMAX) -25 -[address] 0.4 mg 00:00: 04:59 (0.4 mg Hospita capsule 00 :00 total) by l mouth daily with dinner for 30 days. sucralfate 2021- No 1g Q.25D Take 10 mL [facility] (CARAFATE) -25 -25 ([address] 100 mg/mL 00:00: 04:59 [...] and after dialysis on dialysis days valACYclovi 2021-0 2021- No 500mg QD Take 1 Me thodi r (Valtrex) 3-25 04-[address] 500 MG 00:00: 04:59 (500 mg Hospita tablet 00 :00 total) by l mouth daily for 10 days. Take at 8 pm and after dialysis on dialysis days valACYclovi 2021-2021- No 500mg QD Take 1 Me thodi [...] 2-07 cap, PO, l delayed 18:57: Daily [facility] release capsule omeprazole Yes 20 mg = 1 Me moria 20 mg oral 2-07 cap, PO, l delayed 18:57: Daily [facility] release 00 capsule omeprazole Yes 20 mg = 1 Me moria 20 mg oral 2-07 cap, PO, l delayed 18:57: Daily [place] release capsule Docusate Yes 100 mg = 1 Mem oria Sodium 100 2-07 cap, PO, l MG Oral 18:53: Daily [place] Capsule 00 docusate Yes 100 mg = 1 Mem oria sodium 100 2-07 cap, PO, l mg oral 18:53: Daily [place] capsule 00 Docusate Yes 100 mg = 1 Mem oria Sodium 100 2-07 cap, PO, l MG Oral 18:53: Daily [facility] Capsule 00 docusate Yes 100 mg = 1 Mem oria sodium 100 2-07 cap, PO, l mg oral 18:53: Daily [place] capsule 00 Docusate Yes 100 mg = 1 Mem oria Sodium 100 2-07 cap, PO, l MG Oral 18:53: Daily [facility] Capsule 00 docusate Yes 100 mg = 1 Mem oria sodium 100 2-07 cap, PO, l mg oral 18:53: Daily [place] capsule 00 Acetaminoph Yes 1,000 mg = [...] PO, l Oral Tablet 18:48: Q6H, PRN [facility] [Tylenol] 00 Pain Tylenol Yes 1,000 mg [...] tablet 18:47: PO, BID Her sarmiento furosemide Yes 40 mg = 1 Me moria 40 mg oral 2-07 tab, PO, l tablet 18:47: BID [place] 00 Potassium No TAKE 1 Memori a Chloride 2-07 TABLET BY l (Eqv-K-Tab) 18:47: MOUTH Mehreen nn 20 mEq oral 00 EVERY DAY tablet, extended release Furosemide Yes 40 mg = 1 Me moria 40 MG Oral 2-07 tab, PO, l Tablet 18:47: BID Zen carvedilol Yes 3.125 mg = M emoria 6.25 mg 2-07 0.5 tab, l oral tablet 18:47: PO, BID Her sarmiento furosemide Yes 40 mg = 1 Me moria 40 mg oral 2-07 tab, PO, l tablet 18:47: BID [facility] Potassium No TAKE 1 Memori a Chloride 2-07 TABLET BY l (Eqv-K-Tab) 18:47: MOUTH Mehreen nn 20 mEq oral 00 EVERY DAY tablet, extended release Furosemide Yes 40 mg = 1 Me moria 40 MG Oral 2-07 tab, PO, l Tablet 18:47: BID [place] 00 carvedilol Yes 3.125 mg = M emoria 6.25 mg 2-07 0.5 tab, l oral tablet 18:47: PO, BID Her furosemide 2021-0 Yes 40 mg = 1 Me moria 40 mg oral 2-07 tab, PO, l tablet 18:47: BID [facility] lisinopril 2021-0 Yes 40 mg = 1 Me moria 40 mg oral 2-07 tab, PO, l tablet 18:39: Daily [place] lisinopril 2021-0 Yes 40 mg = 1 Me moria 40 mg oral 2-07 tab, PO, l tablet 18:39: Daily [place] lisinopril 2021-0 Yes 40 mg = 1 Me moria 40 mg oral 2-07 tab, PO, l tablet 18:39: Daily [facility] tadalafil 0 Yes [id number] 5mg QD Take 1 U T (Cialis) 5 8-23 tablet (5 [facility]al [facility] MG tablet 00:00: mg total) 00 by mouth 1 (one) time each day. Pt will hold the daily when taking on demand. tadalafil Yes [id number] 20mg Take 1 U T (Cialis) 20 8-23 tablet (20 He alth MG tablet 00:00: mg total) 00 by mouth if needed for erectile dysfunctio n (Pt will hold the daily dose and can not take more than q 36 hours). tadalafil 0 Yes [id number] 5mg QD Take 1 U T (Cialis) 5 8-23 tablet (5 [facility]al [facility] MG tablet 00:00: mg total) 00 by mouth 1 (one) time each day. Pt will hold the daily when taking on demand. tadalafil Yes [id number] 20mg Take 1 U T (Cialis) 20 8-23 tablet (20 He alth MG tablet 00:00: mg total) 00 by mouth if needed for erectile dysfunctio n (Pt will hold the daily dose and can not take more than q 36 hours). tadalafil 2020- No [id number] 5mg QD Take 1 UT (Cialis) 5 8-23 11-22 tablet (5 Hea lth MG tablet 00:00: 05:59 mg total) 00 :00 by mouth 1 (one) time each day. Pt will hold the daily when taking on demand. tadalafil 2020-0 2020- No [id number] 20mg Take 1 UT (Cialis) 20 8- 11-22 tablet (20 [facility] MG tablet 00:00: 05:59 mg total) 00 :00 by mouth if needed for erectile dysfunctio n (Pt will hold the daily dose and can not take more than q 36 hours). tadalafil 2020-0 2021- No [id number] 5mg QD Take 1 UT (Cialis) 5 -22 01- tablet (5 [facility] MG tablet 00:00: 05:59 mg total) 00 :00 by mouth 1 (one) time each day. Pt will hold the daily when taking on demand. tadalafil 2020-0 2020- No [id number] 20mg Take 1 UT (Cialis) 20 8-22 01- tablet (20 [facility] MG tablet 00:00: 05:59 mg total) 00 :00 by mouth if needed for erectile dysfunctio n (Pt will hold the daily dose and can not take more than q 36 hours). tadalafil 2020-0 2020- No [id number] 5mg QD Take 1 UT (Cialis) 5 -22 01- tablet (5 [facility] MG tablet 00:00: 05:59 mg total) 00 :00 by mouth 1 (one) time each day. Pt will hold the daily when taking on demand. tadalafil 2020-2020- No [id number] 20mg Take 1 UT (Cialis) 20 -22 [...] mouth [facility] tablet 26 daily. l aspirin 0 Yes 81mg QD Take 81 mg Meth sarah (ECOTRIN) 7-[address] 81 MG 22:35: daily. [facility]ospita enteric 26 l coated tablet calcitrioL 2021-0 Yes .25ug Q2D Take 0.25 M ethodi (ROCALTROL) 7-[address] 0.25 MCG 22:35: mouth [facility]osp[facility] capsule 26 every l other day. carvediloL 0 Yes 12.5mg Q.5D Take 12.5 [facility] (COREG) 7-[address] 12.5 MG 22:35: mouth 2 Hospita tablet 26 (two) l times a day with meals. ergocalcife 0 Yes [id number] Q30D Take Meth sarah rol 7-22 50,000 [address] (VITAMIN 22:35: Units by Hospi ta D2) 50,000 26 mouth l unit every 30 capsule (thirty) days. 15 of every hydrALAZINE 0 Yes 10mg Q.5D Take 10 [...] capsule times a day. acetamin[place] 0 [place] [id number] 1{tbl} Q6H Take 1 M ethodi en-codeine 7-[address] (TYLENOL 22:35: mouth [facility]ospita WITH 26 every 6 l CODEINE #3) (six) 300-30 mg hours as per tablet needed for moderate pain .acute pain. omeprazole 0 Yes 20mg QD Take 20 mg M ethodi (PriLOSEC) 7-[address] 20 MG 22:35: daily. [facility]ospita capsule 26 l albuterol 2021-0 Yes 2{puff} Inhale 2 M ethodi (PROAIR 7-[address] HFA) 90 22:35: needed for Hosp live mcg/actuati 26 wheezing l on inhaler or shortness of breath. sodium Yes 650mg QD Take 650 Method i bicarbonate 7-[address] 650 mg 22:35: mouth [facility]osp[facility] tablet 26 daily. l furosemide Yes 40mg QD Take 40 mg M ethodi (LASIX) 40 -[address] mg tablet 22:35: every Hospita 26 morning. l hydrALAZINE Yes hydralazin UT (Apresoline 7-22 e [...] package st (Medrol, 00:00: 04:59 directions [facility],) 4 mg 00 :00 l tablet atorvastati 2020- No 20mg QD Take 20 mg Methodi n (LIPITOR) 09-19- by mouth st 20 mg 21:24: 00:00 daily. Hospita tablet 39 :00 Take 1 tab l by mouth daily tamsulosin 2020- No .4mg QD Take 0.4 Me thodi (FLOMAX) 7-21 07-[address] 0.4 mg 21:24: 00:00 mouth [facility]ospita capsule 34 :00 daily with l dinner. Take 1 capsule by mouth daily famotidine 20mg Q.5D Take 20 mg Methodi (PEPCID) [...] l 17:52: Pneumovax Zen ) Refrigerat e Pneumovax No Notes: Memori a 23 6-16 (Same as: l 17:52: Pneumovax Zen ) Refrigerat e Pneumovax No Notes: Memori a 23 6-16 (Same as: l 17:52: Pneumovax ) Refrigerat e ciprofloxac ciprofloxa Methodi in HCl 07-25-[address] (CIPRO) 250 17:16: 00:00 tablet Hos nehemiah MG tablet 07 :00 l azithromyci No 500mg QD Take 1 Me thodi n 07-25 05-[address] (Zithromax) 00:00: 04:59 (500 mg Ho [facility]ita 500 MG 00 :00 total) by l tablet mouth daily for 3 days. tadalafiL 5mg Q24H Take 5 mg Me thodi (CIALIS) 5 07-24 05-[address] MG tablet 08:35: 00:00 daily as Hos nehemiah 55 :00 needed for l erectile dysfunctio n. amLODIPine No 5mg QD Take 1 Meth sarah (NORVASC) 5 07-13-14 tablet (5 st mg tablet 00:00: 04:59 mg total) Ho spita 00 :00 by mouth l daily for 30 days. sodium 650mg QD Take 1 Methodi bicarbonate 07-13-[address] 650 mg 00:00: 04:59 (650 mg Hospita tablet 00 :00 total) by l mouth daily for 30 days. 0.5 ML No Notes: [facility]oria Hepatitis B 5-13 (Same as: l Surface 18:00: Heplisav-B ) Vaccine Non-Formul 0.04 MG/ML elzbieta Injection 0.5 ML No Notes: [facility] Bordetella 5-13 Therapeuti l pertussis 18:00: c Interchang hemagglutin e for in vaccine, Boostrix [...] Bordetella 5-13 Therapeuti l pertussis 18:00: c Zen filamentous 00 Interchang hemagglutin e for in [...] Bordetella 5-13 Therapeuti l pertussis 18:00: c [place] filamentous 00 Interchang hemagglutin e for in vaccine, Boostrix inactivated 0.016 MG/ML / Bordetella pertussis pertactin vaccine, inactivated 0.005 MG/ML / Bordetella pertussis toxoid vaccine, inactivated 0.016 MG/ML / diphtheria toxoid vaccine, inactivate polyethylen 2020- No 17g Q24H Take 17 g Methodi e glycol -12 08-[address] (MIRALAX) 00:00: 04:59 [...] up to 30 days. acetaminoph 2020- No [id number] 1{tbl} Q6H Take 1 Methodi en-codeine 5- 05-[address] (TYLENOL 00:00: 04:59 mouth [facility]ospita WITH 00 :00 every 6 l CODEINE #3) (six) 300-30 mg hours as per tablet needed for moderate pain or severe pain for up to 7 days .acute pain. ivermectin 2020-0 Yes 21 mg = 7 Me moria 3 mg oral 4-15 tab, PO, l tablet 13:59: Daily, # [place] 00 14 tab, 0 Refill(s), Pharmacy: [facility] #[id number], 187.96, cm, 06/14/20 7:58:00 CDT, Height, 109.045, kg, 06/14/20 7:58:00 CDT, Weight ivermectin 2020-0 Yes 21 mg = 7 Me moria 3 mg oral 4-15 tab, PO, l tablet 13:59: Daily, # [place] 00 14 tab, 0 Refill(s), Pharmacy: [facility] #[id number], 187.96, cm, 06/14/20 7:58:00 CDT, Height, 109.045, kg, 06/14/20 7:58:00 CDT, Weight ivermectin 2020-0 Yes 21 mg = 7 Me moria 3 mg oral 4-15 tab, PO, l tablet 13:59: Daily, # [place] 00 14 tab, 0 Refill(s), Pharmacy: [facility] #[id number], 187.96, cm, 06/14/20 7:58:00 CDT, Height, 109.045, kg, 06/14/20 7:58:00 CDT, Weight calcitriol 2020-0 Yes 0.5 [facility] 0.5 mcg 2-03 microgram l oral 14:11: = 1 cap, Zen capsule 00 PO, Every Other Day calcitriol 2020-0 Yes 0.5 [facility] 0.5 mcg 2-03 microgram l oral 14:11: = 1 cap, [place] capsule 00 PO, Every Other Day calcitriol 2020-0 Yes 0.5 [facility]oria 0.5 mcg 2-03 microgram l oral 14:11: = 1 cap, [place] capsule 00 PO, Every Other Day allopurinol 2020-0 Yes 100 mg = 1 [facility] 100 mg oral 2-03 tab, PO, l tablet 14:06: Daily Zen 00 allopurinol 1-0 Yes 100 mg = 1 [facility] 100 mg oral 2-03 tab, PO, l tablet 14:06: Daily allopurinol 0 Yes 100 mg = 1 [...] Ceftriaxone 2020-0 No 1 gm, Memor ia 2-26 Route: IM, l 16:16: Drug form: PDR/INJ, ONCE, Dosing Weight 113.636, kg, Priority: STAT, Start date: 04/27/19 10:16:00 [employer], Stop date: 04/27/19 10:16:00 [employer] Ceftriaxone 2020-0 No 1 gm, Memor ia 2-26 Route: IM, l 16:16: Drug form: PDR/INJ, ONCE, Dosing Weight 113.636, kg, Priority: STAT, Start date: 04/27/19 10:16:00 [employer], Stop date: 04/27/19 10:16:00 [employer] Ceftriaxone 2020-0 No 1 gm, Memor ia 2-26 Route: IM, l 16:16: Drug form: PDR/INJ, ONCE, Dosing Weight 113.636, kg, Priority: STAT, Start date: 04/27/19 10:16:00 [employer], Stop date: 04/27/19 10:16:00 [employer] amLODIPine 2020-0 Yes 5 mg = 1 Mem oria 5 mg oral 1-31 tab, PO, l tablet 22:40: Daily, # [place] 00 90 tab, 3 Refill(s), Pharmacy: [facility] #[id number] atorvastati 2020-0 Yes 20 mg = 1 M emoria n 20 mg 1-31 tab, PO, l oral tablet 22:40: Bedtime, # [place] 00 90 tab, 2 Refill(s), Pharmacy: [facility] #[id number] amLODIPine 2020-0 Yes 5 mg = 1 Mem oria 5 mg oral 1-31 tab, PO, l tablet 22:40: Daily, # Zen 00 90 tab, 3 Refill(s), Pharmacy: [facility] #[id number] atorvastati 2020-0 Yes 20 mg = 1 M emoria n 20 mg 1-31 tab, PO, l oral tablet 22:40: Bedtime, # [place] 00 90 tab, 2 Refill(s), Pharmacy: [facility] #[id number] amLODIPine 2020-0 Yes 5 mg = 1 Mem oria 5 mg oral 1-31 tab, PO, l tablet 22:40: Daily, # [place] 00 90 tab, 3 Refill(s), Pharmacy: [facility] #[id number] atorvastati 2020-0 Yes 20 mg = 1 M emoria n 20 mg 1-31 tab, PO, l oral tablet 22:40: Bedtime, # Zen 00 90 tab, 2 Refill(s), Pharmacy: [facility] #[id number] atorvastati 2020-0 No 20 mg = [...] PO, l oral tablet 22:39: Bedtime, # [place] 00 90 tab, 3 Refill(s) amLODIPine 2020-0 No 5 mg = 1 Mem oria 5 mg oral 1-31 tab, PO, l tablet 22:39: Daily, # [place] 00 90 tab, 1 Refill(s) atorvastati 2020-0 [...] A DAY FOR powder 90 DAYS cyclobenzap Yes 10 mg = 1 M emoria rine 10 mg 1-15 tab, PO, l oral tablet 14:23: Q8H, Her sarmiento 00 NEEDED FOR MUSCLE SPASMS allopurinol Yes 200 mg = 2 Memoria 100 mg oral 1-15 tab, PO, l tablet 14:23: Daily [place] Acetaminoph 2019-0 Yes 2 tab, PO, Memoria en 300 MG / 1-15 Q6H, l Codeine 14:23: NEEDED FOR Herm nora Phosphate 00 PAIN 30 MG Oral Tablet albuterol Yes INHALE 2 Jonathan kayden 90 mcg/inh 1-15 PUFFS BY l inhalation 14:23: MOUTH Oni n aerosol 00 EVERY 4 HOURS NEEDED FOR SHORTNESS OF BREADTH Metoprolol No 25 mg = Ojnathan kayden Tartrate 50 1-15 0.5 tab, l mg oral 14:23: PO, BID, Oni n tablet 00 TAKE 1/2 TABLET BY MOUTH TWICE A DAY WITH MEALS Breo 2019-0 Yes INHALE 1 Memoria Ellipta 100 1-15 PUFF BY l mcg-25 mcg 14:23: MOUTH ONCE H ermann inhalation 00 A DAY FOR powder 90 DAYS cyclobenzap Yes 10 mg = 1 M emoria rine 10 mg 1-15 tab, PO, l oral tablet 14:23: Q8H, Her sarmiento 00 NEEDED FOR MUSCLE SPASMS allopurinol Yes 200 mg = 2 Memoria 100 mg oral 1-15 tab, PO, l tablet 14:23: Daily Zen 00 Acetaminoph 2019-0 Yes 2 tab, PO, Memoria en 300 MG / 1-15 Q6H, l Codeine 14:23: NEEDED FOR Herm nora Phosphate 00 PAIN 30 MG Oral Tablet albuterol Yes INHALE 2 Jonathan kayden 90 mcg/inh [...] sarmiento 00 NEEDED FOR MUSCLE SPASMS allopurinol 2020-0 Yes 200 mg = 2 Memoria 100 mg oral 1-15 tab, PO, l tablet 14:23: Daily [place] 00 Acetaminoph 2020-0 Yes 2 tab, PO, Memoria en 300 MG / 1-15 Q6H, l Codeine 14:23: NEEDED FOR Herm nora Phosphate 00 PAIN 30 MG Oral Tablet albuterol 2020-0 Yes INHALE 2 Jonathan kayden 90 mcg/inh 1-15 PUFFS BY l inhalation 14:23: MOUTH Oni n aerosol 00 EVERY 4 HOURS NEEDED FOR SHORTNESS OF BREADTH MethylPREDN 2020-0 No See Memori a ISolone 1-15 Instructio l Dose Pack 4 14:16: ns, PO, Her sarmiento mg oral 00 Daily, Use tablet as directed on label., 0 Refill(s) carvedilol 2020-0 Yes 25 mg = 1 Me moria 25 mg oral 1-15 tab, PO, l tablet 14:16: BID, 1 Zen 00 Refill(s) MethylPREDN 2020-0 No See Memori a ISolone 1-15 Instructio l Dose Pack 4 14:16: ns, PO, Her sarmiento mg oral 00 Daily, Use tablet as directed on label., 0 Refill(s) carvedilol 2020-0 Yes 25 mg = 1 Me moria 25 mg oral 1-15 tab, PO, l tablet 14:16: BID, 1 [place] 00 Refill(s) MethylPREDN 2020-0 No See Memori a ISolone 1-15 Instructio l Dose Pack 4 14:16: ns, PO, Her sarmiento mg oral 00 Daily, Use tablet as directed on label., 0 Refill(s) carvedilol Yes 25 mg = 1 Me moria 25 mg oral 1-15 tab, PO, l tablet 14:16: BID, 1 [place] 00 Refill(s) carvedilol 2018- Yes 6.25 mg = Me moria 6.25 mg 5-24 1 tab, PO, l oral tablet 14:21: Q12H, # 60 Zen 00 tab, 5 Refill(s), Pharmacy: [facility] #[id number] atorvastati Yes 10 mg = 1 M emoria n 10 mg 5-24 tab, PO, l oral tablet 14:21: Bedtime, # [place] 00 30 tab, 5 Refill(s), Pharmacy: [facility] #[id number] carvedilol 2018- Yes 6.25 mg = Me moria 6.25 mg 5-24 1 tab, PO, l oral tablet 14:21: Q12H, # 60 [place] 00 tab, 5 Refill(s), Pharmacy: [facility] #[id number] atorvastati Yes 10 mg = 1 M emoria n 10 mg 5-24 tab, PO, l oral tablet 14:21: Bedtime, # [place] 00 30 tab, 5 Refill(s), Pharmacy: [facility] #[id number] carvedilol 2018- Yes 6.25 mg = Me moria 6.25 mg 5-24 1 tab, PO, l oral tablet 14:21: Q12H, # 60 [place] 00 tab, 5 Refill(s), Pharmacy: [facility] #[id number] atorvastati Yes 10 mg = 1 M emoria n 10 mg 5-24 tab, PO, l oral tablet 14:21: Bedtime, # [place] 00 30 tab, 5 Refill(s), Pharmacy: [facility] #[id number] carvedilol 2018- No 3.125 mg = M [...] l mg oral 01:26: Daily Zen tablet metoprolol Yes 50 mg = 1 Me moria tartrate 50 2-06 tab, PO, l mg oral 01:26: Daily [place] tablet 00 metoprolol 0 Yes 50 mg = 1 Me moria tartrate 50 2-06 tab, PO, l mg oral 01:26: Daily [place] tablet 00 carvedilol Yes 12.5 mg = Me moria 12.5 mg 2-06 1 tab, PO, l oral tablet 01:24: BID, WITH H ermann 00 FOOD carvedilol Yes 12.5 mg = Me moria 12.5 mg 2-06 1 tab, PO, l oral tablet 01:24: BID, WITH H FOOD carvedilol Yes 12.5 mg = Me moria 12.5 mg 2-06 1 tab, PO, l oral tablet 01:24: BID, WITH H FOOD amLODIPine Yes 10 mg = 1 Me moria 10 mg oral 2-06 tab, PO, l tablet 00:10: Daily, # Zen 00 30 tab, 0 Refill(s) amLODIPine Yes 10 mg = 1 Me moria 10 mg oral 2-06 tab, PO, l tablet 00:10: Daily, # [place] 00 30 tab, 0 Refill(s) amLODIPine Yes 10 mg = 1 Me moria 10 mg oral 2-06 tab, PO, l tablet 00:10: Daily, # Zen 00 30 tab, 0 Refill(s) Metoprolol Yes 25 mg = Jonathan kayden Tartrate 50 2-05 0.5 tab, l mg oral 23:05: PO, BID [place] tablet magnesium Yes 400 mg = 1 Me moria oxide 400 2-05 tab, PO, l mg oral 23:05: Daily [place] tablet Metoprolol Yes 25 mg = Jonathan kayden Tartrate 50 2-05 0.5 tab, l mg oral 23:05: PO, BID Zen tablet magnesium 0 Yes 400 mg = 1 Me moria oxide 400 2-05 tab, PO, l mg oral 23:05: Daily [place] tablet Metoprolol Yes 25 mg = Jonathan kayden Tartrate 50 2-05 0.5 tab, l mg oral 23:05: PO, BID [place] tablet magnesium 0 Yes 400 mg = 1 Me moria oxide 400 2-05 tab, PO, l mg oral 23:05: Daily [place] tablet Glipizide Yes 10 mg = 1 Mem oria 10 MG Oral 2-04 tab, PO, l Tablet 20:52: Daily, 0 Refill(s) pravastatin Yes 80 mg = 1 M emoria 80 mg oral 2-04 tab, PO, l tablet 20:52: Daily, 0 Refill(s) Amlodipine No 10 mg, PO, M emoria 2-04 Daily, 0 l 20:52: Refill(s) Zen 00 Esomeprazol Yes 40 mg = 1 M emoria e 40 MG 2-04 cap, PO, l Enteric 20:52: Daily, 0 Oni n Coated Refill(s) Capsule metoprolol No 100 mg = 1 M emoria 100 mg oral 2-04 tab, PO, l tablet, 20:52: BID, 0 Zen extended Refill(s) release allopurinol Yes 300 mg = 1 Memoria 300 mg oral 2-04 tab, PO, l tablet 20:52: Daily, 0 Zen Refill(s) Doxepin Yes 6 mg, PO, Memor ia 204 Bedtime, 0 l 20:52: Refill(s) carvedilol No 3.125 mg = M emoria 3.125 mg 2-04 1 tab, PO, l oral tablet 20:52: BID, 0 Herm Refill(s) losartan 25 Yes 25 mg = [...] PO, l Tablet 20:52: Daily, 0 Zen Refill(s) pravastatin Yes 80 mg = 1 M emoria 80 mg oral 2-04 tab, PO, l tablet 20:52: Daily, 0 [place] Refill(s) Amlodipine No 10 mg, PO, M emoria 2-04 Daily, 0 l 20:52: Refill(s) [place] 00 Esomeprazol Yes 40 mg = 1 M emoria e 40 MG 2-04 cap, PO, l Enteric 20:52: Daily, 0 Oni n Coated Refill(s) Capsule metoprolol No 100 mg = 1 M emoria 100 mg oral 2-04 tab, PO, l tablet, 20:52: BID, 0 [place] extended Refill(s) release allopurinol Yes 300 mg = 1 Memoria 300 mg oral 2-04 tab, PO, l tablet 20:52: Daily, 0 Zen Refill(s) Doxepin Yes 6 mg, PO, Memor ia 204 Bedtime, 0 l 20:52: Refill(s) [place] 00 carvedilol No 3.125 mg = M [...] Tablet 20:52: Bedtime, 0 Mehreen Refill(s) Adult 0 Yes 81 mg = 1 Memoria Aspirin [...] tab, PO, l Tablet 20:52: Daily, 0 [place] Refill(s) pravastatin Yes 80 mg = 1 M emoria 80 mg oral 2-04 tab, PO, l tablet 20:52: Daily, 0 Zen Refill(s) Amlodipine No 10 mg, PO, M emoria 2-04 Daily, 0 l 20:52: Refill(s) Zen Esomeprazol Yes 40 mg = 1 M [...] tab, PO, l tablet 20:52: Daily, 0 [place] 00 Refill(s) Doxepin Yes 6 mg, PO, Memor ia 2-04 Bedtime, 0 l 20:52: Refill(s) [place] carvedilol No 3.125 mg = M emoria [...] 11-03 (Same as: l odium 20:02: Phos-NaK) [place] phosphate Each 1.5 250 mg-45 gm pkt has mg-298 mg 250mg oral tablet phosphorou s. Mix w/2.5oz water and stir. potassium No Notes: Memori a phosphate-s 11-03 (Same as: l odium 20:02: Phos-NaK) [place] phosphate 00 Each 1.5 250 mg-45 gm pkt has mg-298 mg 250mg oral tablet phosphorou s. Mix w/2.5oz water and stir. potassium No Notes: Memori a phosphate-s 11-03 (Same as: l odium 20:02: Phos-NaK) [place] phosphate 00 Each 1.5 250 mg-45 gm pkt has mg-298 mg 250mg oral tablet phosphorou s. Mix w/2.5oz water and stir. potassium No Notes: Memori a phosphate 11-03 (Same as: l 155 MG / 19:54: K-Phos Zen Sodium 00 Neutral, Phosphate, Phospha Dibasic 852 250 MG / Sodium Neutral) Phosphate, Monobasic 130 MG Oral Tablet [K-Phos Neutral] potassium No Notes: Memori a phosphate 11-03 (Same as: l 155 MG / 19:54: K-Phos [place] Sodium 00 Neutral, Phosphate, Phospha Dibasic 852 250 MG / Sodium Neutral) Phosphate, Monobasic 130 MG Oral Tablet [K-Phos Neutral] potassium No Notes: Memori a phosphate 11-03 (Same as: l 155 MG / 19:54: K-Phos Zen Sodium 00 Neutral, Phosphate, Phospha Dibasic 852 250 MG / Sodium Neutral) Phosphate, Monobasic 130 MG Oral Tablet [K-Phos Neutral] Magnesium No Notes: Memori a Sulfate 11-03 WASTE: F/P l 19:52: - Sink; E Zen - [facility] Tr[facility] Magnesium No Notes: Memori a Sulfate 11-03 WASTE: F/P l 19:52: - Sink; E Zen - [facility] Trash [facility] Magnesium No Notes: Memori a Sulfate 11-03 WASTE: F/P l 19:52: - Sink; E Zne 00 - [facility] Trash Bin GI cocktail No Notes: Jonathan kayden 11-03 G.I. l 15:34: Cocktail = [place] 00 antacid with simethicon e 22.5 mL - lidocaine viscous 7.5 mL Sodium 2017-0 No 1,000 mL, Memori a Chloride 9-04 2,000 l 0.9% IV 15:34: ml/hr, [place] (Sodium 00 Infuse Chloride Over: 30 0.9% minutes, (Bolus) IV) Route: IV, 1,000, Drug form: INJ, ONCE, Priority: STAT, Dosing Weight 118.182 kg, Start date: 11/03/16 10:34:00 CDT, Duration: 1 doses or times, Stop date: 11/03/16 10:34:00 CDT Saline No Notes: Memoria Flush 0.9% 9-04 (Same as: l 15:34: BD Zen 00 Posiflush) GI cocktail No Notes: Jonathan kayden 9-04 G.I. l 15:34: Cocktail = [place] 00 antacid with simethicon e 22.5 mL - lidocaine viscous 7.5 mL Sodium 2017-0 No 1,000 mL, Memori a Chloride 9-04 2,000 l 0.9% IV 15:34: ml/hr, [place] (Sodium 00 Infuse Chloride Over: 30 0.9% minutes, (Bolus) IV) Route: IV, 1,000, Drug form: INJ, ONCE, Priority: STAT, Dosing Weight 118.182 kg, Start date: 11/03/16 10:34:00 CDT, Duration: 1 doses or times, Stop date: 11/03/16 10:34:00 CDT Saline No Notes: Memoria Flush 0.9% 9-04 (Same as: l 15:34: BD Zen 00 Posiflush) GI cocktail No Notes: Jonathan kayden 9-04 G.I. l 15:34: Cocktail = Zen 00 antacid with simethicon e 22.5 mL - lidocaine viscous 7.5 mL Sodium 2017-0 No 1,000 mL, Memori a Chloride 9-04 2,000 l 0.9% IV 15:34: ml/hr, [place] (Sodium 00 Infuse Chloride Over: 30 0.9% minutes, (Bolus) IV) Route: IV, 1,000, Drug form: INJ, ONCE, Priority: STAT, Dosing Weight 118.182 kg, Start date: 11/03/16 10:34:00 CDT, Duration: 1 doses or times, Stop date: 11/03/16 10:34:00 CDT Saline No Notes: Memoria Flush 0.9% 11-03 (Same as: l 15:34: BD [place] 00 Posiflush) clindamycin Yes 300 mg = [...] kayden 7-11 G.I. l 21:05: Cocktail = Zen 00 antacid with simethicon e 22.5 mL - lidocaine viscous 7.5 mL GI cocktail No Notes: Jonathan kayden 7-11 G.I. l 21:05: Cocktail = [place] 00 antacid with simethicon e 22.5 mL - lidocaine viscous 7.5 mL GI cocktail No Notes: Jonathan kayden 7-11 G.I. l 21:05: Cocktail = Zen 00 antacid with simethicon [...] # Dosepak] 1 Pack, 0 Refill(s) Sodium 2016-0 No 1,000 mL, Memori a Chloride 4-20 1,000 l 0.154 17:27: ml/hr, [place] MEQ/ML 00 Infuse Injectable Over: 1 Solution hr, Route: IV, 1,000, Drug form: INJ, ONCE, Priority: STAT, Dosing Weight 118.182 kg, Start date: 06/20/15 12:27:00 CDT, Duration: 1 doses or times, Stop date: 06/20/15 12:27:00 CDT Sodium 2015- No 1,000 mL, Memori a Chloride 4-20 1,000 l 0.154 17:27: ml/hr, Zen MEQ/ML 00 Infuse Injectable Over: 1 Solution hr, Route: IV, 1,000, Drug form: INJ, ONCE, Priority: STAT, Dosing Weight 118.182 kg, Start date: 06/20/15 12:27:00 CDT, Duration: 1 doses or times, Stop date: 06/20/15 12:27:00 CDT Sodium No 1,000 mL, Memori a Chloride 4-20 1,000 l 0.154 17:27: ml/hr, [place] MEQ/ML 00 Infuse Injectable Over: 1 Solution hr, Route: IV, 1,000, Drug form: INJ, ONCE, Priority: STAT, Dosing Weight 118.182 kg, Start date: 06/20/15 12:27:00 CDT, Duration: 1 doses or times, Stop date: 06/20/15 12:27:00 CDT Zofran No Notes: Memoria 4-20 (Same as: l :: Zofran) Zen 00 MEDICATION WASTE Product Size: 4 mg Product Wasted: ___ mg Zofran No Notes: Memoria 4-20 (Same as: l 16:: Zofrchristel) Zen 00 MEDICATION WASTE Product Size: 4 mg Product Wasted: ___ mg Zofran No Notes: Memoria 4-20 (Same as: l 16:01: Zofran) Zen MEDICATION WASTE Product Size: 4 mg Product Wasted: ___ mg Morphine No Notes: Memoria 4-20 (Same l 16:00: as:MORPhin Zen e Sulfate) Morphine No Notes: Memoria 4-20 (Same l 16:00: as:MORPhin [place] e Sulfate) Morphine No Notes: Memoria 4-20 (Same l 16:00: as:MORPhin Zen e Sulfate) Saline No Notes: Memoria Flush 0.9% 4-20 (Same as: l 15:18: BD Zen Posiflush) Saline No Notes: Memoria Flush 0.9% 4-20 (Same as: l 15:18: BD Zen 00 Posiflush) Saline No Notes: Memoria Flush 0.9% 4-20 (Same as: l 15:18: BD [place] Posiflush) acetaminoph acetaminoph Yes 1 3xD C [...] Date Status Commen ts Source Name Name [id number] 2020-12-25 Completed [facility] [id number] 00:00:00 [id number] 2020-12-25 Completed [facility] Zen [id number] 00:00:00 [id number] 2020-12-25 Completed [facility] Zen [id number] 00:00:00 zoster vaccine, 2020-10-13 Completed [facility] Zen inactivated 00:00:00 zoster vaccine, 2020-10-13 [facility], 2020-10[facility]13 [facility] zoster vaccine, 2020-06-14 [facility] 14:48:00 pneumococcal 2020-06-14 Completed [facility] sarmiento 13-valent vaccine 14:48:00 hepatitis B adult 2020-06-14 Completed Memoria l Zen vaccine 14:48:00 zoster vaccine, 2020-06-14 Completed [facility] [place] inactivated 14:48:00 pneumococcal 2020-06-14 Completed [facility] sarmiento 13-valent vaccine 14:48:00 hepatitis B adult 2020-06-14 Completed Memoria l Zen vaccine 14:48:00 zoster vaccine, 2020-06-14 Completed [facility] inactivated 14:48:00 pneumococcal 2020-06-14 Completed [facility] sarmiento 13-valent vaccine 14:48:00 hepatitis B adult 2020-06-14 Completed Memoria l [place] vaccine 14:48:00 [id number] 2020-04-25 Completed Jonathan rial Zen [id number] 18:12:00 <sup>1</sup> [id number] 2020-04-25 Completed Jonathan rial [place] [id number] 18:12:00 <sup>1</sup> [id number] 2020-04-25 Completed Jonathan rial Zen [id number] 18:12:00 <sup>1</sup> PFIZER COVID-19 MRNA 2020-04-25 Completed Meth odist VACCINATION 00:00:00 [facility] PFIZER COVID-19 MRNA 2020-04-25 Completed Meth odist VACCINATION 00:00:00 [facility] PFIZER COVID-19 MRNA 2020-04-25 Completed Meth odist VACCINATION 00:00:00 [facility] PFIZER COVID-19 MRNA 2020-04-25 Completed Meth odist VACCINATION 00:00:00 [facility] PFIZER COVID-19 MRNA 2020-04-25 Completed Meth odist VACCINATION 00:00:00 [facility] PFIZER COVID-19 MRNA 2020-04-25 Completed Meth odist VACCINATION 00:00:00 [facility] PFIZER COVID-19 MRNA 2020-04-25 Completed Meth odist VACCINATION 00:00:00 [facility] PFIZER COVID-19 MRNA 2020-04-25 Completed Meth odist VACCINATION 00:00:00 [facility] PFIZER COVID-19 MRNA 2020-04-25 Completed Meth odist VACCINATION 00:00:00 [facility] PFIZER COVID-19 MRNA 2020-04-25 Completed Meth odist VACCINATION 00:00:00 [facility] PFIZER COVID-19 MRNA 2020-04-25 Completed Meth odist VACCINATION 00:00:00 [facility] PFIZER COVID-19 MRNA 2020-04-25 Completed Meth odist VACCINATION 00:00:00 [facility] PFIZER COVID-19 MRNA 2020-04-25 Completed Meth odist VACCINATION 00:00:00 [facility] PFIZER COVID-19 MRNA 2020-04-25 Completed Meth odist VACCINATION 00:00:00 [facility] PFIZER COVID-19 MRNA 2020-04-25 Completed Meth odist VACCINATION 00:00:00 [facility] PFIZER COVID-19 MRNA 2020-04-25 Completed Meth odist VACCINATION 00:00:00 [facility] PFIZER COVID-19 MRNA 2020-04-25 Completed Meth odist V[facility]ATION [facility] [facility] COVID-19 MRNA 2020-04-25 Completed Meth odist VACCINATION 00:00:00 [facility] PFIZER COVID-19 MRNA 2020-04-25 Completed Meth odist VACCINATION 00:00:00 [facility] PFIZER COVID-19 MRNA 2020-04-25 Completed Meth odist VACCINATION 00:00:00 [facility] PFIZER COVID-19 MRNA 2020-04-25 Completed Meth odist VACCINATION 00:00:00 [facility] PFIZER COVID-19 MRNA 2020-04-25 Completed Meth odist VACCINATION 00:00:00 [facility] PFIZER COVID-19 MRNA 2020-04-25 Completed Meth odist VACCINATION 00:00:00 [facility] [id number] 2020-04-04 Completed Jonathan lucila Zaldivar [id number] 15:57:00 <sup>1</sup> [id number] 2020-04-04 Completed Jonathan lucila Zaldivar [id number] 15:57:00 <sup>2</sup> [id number] 2020-04-04 Completed Jonathan lucila Zaldivar [id number] 15:57:00 <sup>1</sup> [id number] 2020-04-04 Completed Jonathan lucila Zaldivar [id number] 15:57:00 <sup>2</sup> [id number] 2020-04-04 Completed Jonathan Zaldivar [id number] 15:57:00 <sup>1</sup> [id number] 2020-04-04 Completed Jonathan Zaldivar [id number] 15:57:00 <sup>2</sup> PFIZER COVID-19 MRNA 2020-04-04 Completed Meth odist VACCINATION 00:00:00 [facility] PFIZER COVID-19 MRNA 2020-04-04 Completed Meth odist VACCINATION 00:00:00 [facility] PFIZER COVID-19 MRNA 2020-04-04 Completed Meth odist VACCINATION 00:00:00 [facility] PFIZER COVID-19 MRNA 2020-04-04 Completed Meth odist VACCINATION 00:00:00 [facility] PFIZER COVID-19 MRNA 2020-04-04 Completed Meth odist VACCINATION 00:00:00 [facility] PFIZER COVID-19 MRNA 2020-04-04 Completed Meth odist VACCINATION 00:00:00 [facility] PFIZER COVID-19 MRNA 2020-04-04 Completed Meth odist VACCINATION 00:00:00 [facility] PFIZER COVID-19 MRNA 2020-04-04 Completed Meth odist VACCINATION 00:00:00 [facility] PFIZER COVID-19 MRNA 2020-04-04 Completed Meth odist VACCINATION 00:00:00 [facility] PFIZER COVID-19 MRNA 2020-04-04 Completed Meth odist VACCINATION 00:00:00 [facility] PFIZER COVID-19 MRNA 2020-04-04 Completed Meth odist VACCINATION 00:00:00 [facility] PFIZER COVID-19 MRNA 2020-04-04 Completed Meth odist VACCINATION 00:00:00 [facility] PFIZER COVID-19 MRNA 2020-04-04 Completed Meth odist VACCINATION 00:00:00 [facility] PFIZER COVID-19 MRNA 2020-04-04 Completed Meth odist VACCINATION 00:00:00 [facility] PFIZER COVID-19 MRNA 2020-04-04 Completed Meth odist VACCINATION 00:00:00 [facility] PFIZER COVID-19 MRNA 2020-04-04 Completed Meth odist VACCINATION 00:00:00 [facility] PFIZER COVID-19 MRNA 2020-04-04 Completed Meth odist VACCINATION 00:00:00 [facility] PFIZER COVID-19 MRNA 2020-04-04 Completed Meth odist VACCINATION 00:00:00 [facility] PFIZER COVID-19 MRNA 2020-04-04 Completed Meth odist VACCINATION 00:00:00 [facility] PFIZER COVID-19 MRNA 2020-04-04 Completed Meth odist VACCINATION 00:00:00 [facility] PFIZER COVID-19 MRNA 2020-04-04 Completed Meth odist VACCINATION 00:00:00 [facility] PFIZER COVID-19 MRNA 2020-04-04 Completed Meth odist VACCINATION 00:00:00 [facility] PFIZER COVID-19 MRNA 2020-04-04 Completed Meth odist VACCINATION 00:00:00 [facility] varicella virus 2019-04-01 Completed [facility] 17:12:00 varicella virus 2019-04-01 Completed [facility] 17:12:00 varicella virus 2019-04-01 Completed [facility] vaccine 17:12:00 measles/mumps/rubell 2019-04-01 Completed Jonathan [facility] a virus vaccine 17:05:00 measles/mumps/rubell 2019-04-01 Completed Jonathan [facility] a virus vaccine 17:05:00 measles/mumps/rubell 2019-04-01 Completed Jonathan [facility] a virus vaccine 17:05:00 Vital Signs Vital Name Observation Time Observation Value Comments Source Systolic blood 2022-05-05 111 mm[Hg] [facility] pressure 09:20:00 Diastolic blood 2022-05-05 72 mm[Hg] [facility] pressure 09:20:00 Heart rate 2022-05-05 84 /min [facility] 09:20:00 Body temperature 2022-05-05 36.56 Zari [facility] 09:20:00 Body height 2022-05-05 188 cm [facility] 09:20:00 Body weight 2022-05-05 105.235 kg [facility] 09:20:00 BMI 2022-05-05 29.79 kg/m2 [facility] 09:20:00 Height 2022-04-29 187.96 CM 20:08:00 Weight 2022-04-29 109 KG 20:08:00 Height 2022-04-26 187.96 CM 19:27:00 Weight 2022-04-26 105.23 KG 19:27:00 Systolic blood 2021-10-28 149 mm[Hg] [facility] pressure 13:19:00 Diastolic blood 2021-10-28 75 mm[Hg] [facility] pressure 13:19:00 Heart rate 2021-10-28 81 /min [facility] 13:19:00 Body temperature 2021-10-28 36.56 Zari [facility] 13:19:00 Body height 2021-10-28 188 cm [facility] 13:19:00 Body weight 2021-10-28 110 kg [facility] 13:19:00 BMI 2021-10-28 31.14 kg/m2 [facility] 13:19:00 Heart Rate 2022-06-17 [facility] Oni n 12:22:00 Systolic (mm Hg) 2022-06-17 [facility] He rmann 12:22:00 Diastolic (mm Hg) 2022-06-17 [facility] H ermann 12:22:00 [facility] 2022-06-17 [facility]17 [facility] 12:22[facility]00 BMI Calculated 2022-06-17 [facility] Herm nora 12:22:00 Pulse Rate 2022-04-29 75 /min [facility] 21:48:00 [facility] (LUF/HUANG/SA) O2% BldC Oximetry 2022-04-29 95 % [facility] 21:48:00 [facility] (LUF/HUANG/SA) BP Systolic 2022-04-29 150 mm[Hg] [facility] 21:48:00 [facility] (LUF/HUANG/SA) BP Diastolic 2022-04-29 72 mm[Hg] [facility] 21:48:00 [facility] (LUF/HUANG/SA) Body Temperature 2022-04-29 97.9 [degF] [facility] 20:08:00 [facility] (LUF/HUANG/SA) Respiratory Rate 2022-04-29 18 /min [facility] 20:08:00 [facility] (LUF/HUANG/SA) Height 2022-04-29 74 [in_i] [facility] 20:08:00 [facility] (LUF/HUANG/SA) Weight 2022-04-[address] [facility] 20:08:00 [facility] (LUF/HUANG/SA) BMI (Body Mass 2022-04-29 31.1 kg/m2 [facility] Index) 20:08:00 [facility] (LUF/HUANG/SA) Heart Rate 2022-04-26 83 /min [facility] 21:53:00 [facility] (LUF/HUANG/SA) Pulse Rate 2022-04-26 84 /min [facility] 21:53:00 [facility] (LUF/HUANG/SA) Respiratory Rate 2022-04-26 15 /min [facility] 21:53:00 [facility] (LUF/HUANG/SA) O2% BldC Oximetry 2022-04-26 92 % [facility] (LUF/HUANG/SA) BP Systolic 2022-04-26 138 mm[Hg] [facility] 21:53:00 [facility] (LUF/HUANG/SA) BP Diastolic 2022-04-26 84 mm[Hg] [facility] 21:53:00 [facility] (LUF/HUANG/SA) Body Temperature 2022-04-26 98 [degF] [facility] (LUF/HUANG/SA) Height 2022-04-26 74 [in_i] [facility]00 [facility] (LUF/HUANG/SA) Weight 2022-04-26 232 [facility]_av] [facility] (LUF/HUANG/SA) BMI (Body Mass 2022-04-26 30 kg/m2 [facility] Index) 19:27:00 [facility] (LUF/HUANG/SA) Respitory Rate 2021-07-23 [facility] Herm nora 13:08:00 Systolic (mm Hg) 2021-07-23 [facility] rmann 13:08:00 Diastolic (mm Hg) 2021-07-23 [facility] ermann 13:08:00 Heart Rate 2021-07-23 [facility] Oni n 12:50:00 Respitory Rate 2021-07-23 [facility] Herm nora 12:50:00 Systolic (mm Hg) 2021-07-23 [facility] rmann 12:50:00 Diastolic (mm Hg) 2021-07-23 [facility] ermann 12:50:00 Heart Rate 2021-07-23 [facility] Oni n 12:40:00 Respitory Rate 2021-07-23 [facility] Herm nora 12:40:00 Systolic (mm Hg) 2021-07-23 [facility] rmann 12:40:00 Diastolic (mm Hg) 2021-07-23 [facility] ermann 12:40:00 Temperature Oral 2021-07-23 36.3 Zari [facility] rmann (F) 12:30:00 Heart Rate 2021-07-23 [facility] Oni n 12:30:00 Temperature Oral 2021-07-23 36.7 Zari [facility] rmann (F) 11:18:00 Height 2021-07-23 182.88 cm [facility] Oni n 11:18:00 Weight 2021-07-23 [facility] Oni n 11:18:00 Height 2021-07-22 182.88 cm [facility] Oni n 18:07:00 Weight 2021-07-22 [facility] Oni n 18:07:00 Systolic (mm Hg) 2021-07-02 [facility] rmann 18:31:00 Diastolic (mm Hg) 2021-07-02 [facility] ermann 18:31:00 Heart Rate 2021-07-02 [facility] Oni n 18:31:00 Respitory Rate 2021-07-02 [facility] Joseph nora 18:31:00 Height 2021-07-02 180.34 cm [facility] Oni n 18:31:00 Weight 2021-07-02 [facility] Oni n 18:31:00 BMI Calculated 2021-07-02 [facility] Joseph nora 18:31:00 Systolic blood 2021-05-24 137 mm[Hg] [facility] pressure 16:24:36 Hospital Diastolic blood 2021-05-24 85 mm[Hg] [facility] pressure 16:24:36 Hospital Heart rate 2021-05-24 70 /min [facility] 16:24:36 Hospital Body temperature 2021-05-24 35.89 Zari [facility] 16:24:36 Hospital Respiratory rate 2021-05-24 18 /min [facility] 16:24:36 Hospital Oxygen saturation 2021-05-24 98 /min Scient[facility] in Arterial blood 16:24:36 Hospital by Pulse oximetry Body height 2021-05-20 188 cm [facility] 22:57:00 Hospital Body weight 2021-05-20 105.4 kg [facility] 22:57:00 Hospital BMI 2021-05-20 29.83 kg/m2 [facility] 22:57:00 Hospital Height 2021-05-09 185.42 cm [facility] Oni n 13:53:00 Weight 2021-05-09 [facility] Oni n 13:53:00 BMI Calculated 2021-05-09 [facility] 13:53:00 Heart Rate 2021-04-08 [facility] 18:21:00 Systolic (mm Hg) 2021-04-08 [facility] rmann 18:21:00 Diastolic (mm Hg) 2021-04-08 [facility] ermann 18:21:00 Height 2021-04-08 182 [facility]:21[facility]00 [facility] 2021-04-08 [facility] 18:21:00 BMI Calculated 2021-04-08 [facility] nora 18:21:00 Systolic (mm Hg) 2021-02-06 [facility] rmann 16:01:00 Diastolic (mm Hg) 2021-02-06 [facility] ermann 16:01:00 Heart Rate 2021-02-06 [facility] 16:01:00 Respitory Rate 2021-02-06 [facility] nora 16:01:00 Temperature Oral 2021-02-06 97.9 F [facility] rmann (F) 16:01:00 Height 2021-02-06 180.3 [facility] 16:01:00 Weight 2021-02-06 [facility] 16:01:00 BMI Calculated 2021-02-06 [facility] nora 16:01:00 Oxygen saturation 2020-09-20 96 /min [facility] in Arterial blood 21:18:00 Hospital by Pulse oximetry Heart rate 2020-09-20 69 /min Scient[facility] 21:16:00 [facility] Respiratory rate 2020-09-20 18 /min [facility] 21:16:00 Hospital Systolic blood 2020-09-20 111 mm[Hg] [facility] pressure 20:34:00 Hospital Diastolic blood 2020-09-20 54 mm[Hg] [facility] pressure 20:34:00 Hospital Body temperature 2020-09-20 37.17 Zari [facility] 16:58:17 Hospital Body weight 2020-09-20 109.272 kg [facility] 09:42:21 Hospital BMI 2020-09-20 30.93 kg/m2 [facility] 09:42:21 Hospital Body height 2020-07-20 188 cm [facility] 12:39:00 Hospital Systolic (mm Hg) 2020-06-14 [facility] rmann 12:58:00 Diastolic (mm Hg) 2020-06-14 [facility] ermann 12:58:00 Heart Rate 2020-06-14 [facility] 12:58:00 Height 2020-06-14 187.96 cm [facility] 12:58:00 Weight 2020-06-14 [facility] 12:58:00 BMI Calculated 2020-06-14 [facility]a 12:58:00 Systolic (mm Hg) 2020-04-25 [facility] 19:27:00 Diastolic (mm Hg) 2020-04-25 [facility] ermann 19:27:00 Heart Rate 2020-04-25 [facility] n 19:27:00 Respitory Rate 2020-04-25 [facility] nora 19:27:00 Temperature Oral 2020-04-25 97.0 F [facility] (F) 19:27:00 Height 2020-04-25 180.34 cm [facility] 19:27:00 Weight 2020-04-25 [facility] 19:27:00 BMI Calculated 2020-04-25 [facility]a 19:27:00 Systolic blood 2020-04-23 186 mm[Hg] Location: LUE; [facility] pressure 17:10:00 Position: Sitting Diastolic blood 2020-04-23 82 mm[Hg] Location: LUE; [facility] pressure 17:10:00 Position: Sitting Body height 2020-04-23 74 [in_us] [facility] 17:10:00 Weight 2020-04-23 240 [lb_av] [facility] 17:10:00 Body mass index 2020-04-23 30.81 kg/m2 [facility] (BMI) [Ratio] 17:10:00 Body temperature 2020-04-23 97.4 [degF] Method: [facility] 17:10:00 Temporal Heart Rate 2020-04-23 56 /min [facility]: L [facility] 17:10:00 Brachial Artery; Systolic (mm Hg) 2020-04-04 [facility] 13:41:00 Diastolic (mm Hg) 2020-04-04 [facility] ermann 13:41:00 Heart Rate 2020-04-04 [facility] Noi n 13:41:00 Respitory Rate 2020-04-04 [facility] nora 13:41:00 Height 2020-04-04 182 cm [facility] 13:41:00 Weight 2020-04-04 [facility] 13:41:00 BMI Calculated 2020-04-04 [facility]a 13:41:00 Systolic blood 2019-10-24 136 mm[Hg] Location: LUE; [facility] pressure 17:12:00 Position: Sitting Diastolic blood 2019-10-24 71 mm[Hg] Location: E; [facility] pressure 17:12:00 Position: Sitting Body height 2019-10-24 74 [in_us] [facility] 17:12:00 Weight 2019-10-24 250 [lb_av] [facility] 17:12:00 Body mass index 2019-10-24 32.1 kg/m2 [facility] (BMI) [Ratio] 17:12:00 Heart Rate 2019-10-24 60 /min Location: L [facility] 17:12:00 Brachial Artery; Body temperature 2019-10-24 97.8 [degF] Method: [facility] 17:12:00 Temporal Systolic (mm Hg) [...] 20:50:00 Temperature Oral 2015-06-20 98.6 F [facility] (F) 20:50:00 Systolic (mm Hg) 2015-06-20 [facility] 18:31:00 Diastolic (mm Hg) 2015-06-20 [facility] 18:31:00 Respitory Rate 2015-06-20 [facility] nora 18:31:00 Respitory Rate 2015-06-20 [facility]a 18:30:00 Systolic (mm Hg) 2015-06-20 [facility] 17:24:00 Diastolic (mm Hg) 2015-06-20 [facility] 17:24:00 Temperature Oral 2015-06-20 97.7 F Bebeto shah (F) 15:10:00 Weight 2015-06-20 Bebeto Bunn n 15:10:00 Heart Rate 2015-06-20 Bebeto Bunn n 15:10:00 Procedures Procedure Date / Time Performing Source Performed Clinician MR LUMBAR SPINE WO CONTRAST 2022-07-09 Requisition, Paper [facility] 14:42:49 [facility] AGREEMENTS AUTHORIZATIONS AND 2022-07-09 [facility]FORM 05:01:00 Numa [facility] POCT URINALYSIS W/O SCOPE 2022-05-05 Carmelina, [facility] 23:16:00 PSA, TOTAL AND FREE 2022-05-05 Carmelina, [facility] 14:31:00 TESTOSTERONE, FREE, TOTAL 2022-05-05 Carmelina, [facility] 14:31:00 URINE CULTURE 2022-05-05 Carmelina, [facility] 14:31:00 VITAMIN D 25 HYDROXY 2022-05-05 Carmelina, [facility] 14:31:00 POCT URINALYSIS W/O SCOPE 2021-10-28 Carmelina, [facility] 22:11:00 ESOPHAGOGASTRODUODENOSCOPY 2021-07-23 Memor santhosh Zaldivar W/BIOPSY [id number] (N/A)<sup>1</sup> 12:27:00 CBC WITH PLATELET AND 2021-05-24 David Gonzalez DIFFERENTIAL 08:24:00 Hospital BASIC METABOLIC PANEL 2021-05-24 David Gonzalez 08:24:00 Hospital MAGNESIUM LEVEL 2021-05-24 David Gonzalez 08:24:00 Hospital PHOSPHORUS LEVEL 2021-05-24 David Gonzalez 08:24:00 Hospital ESTIMATED GFR 2021-05-24 David Gonzalez 08:24:00 Hospital SURGICAL PATHOLOGY REQUEST 2021-05-23 David Gonzalez Metho dist 20:46:00 [facility] [place] ESOPHAGRAM SINGLE CONTRAST 2021-05-23 Robb Barry thodist 20:20:45 [facility] ESOPHAGOGASTRODUODENOSCOPY (EGD) 2021-05-23 Ciro Toro 17:37:00 [facility] CBC WITH PLATELET AND 2021-05-23 Ulness, David Scientologist DIFFERENTIAL 09:35:00 [facility] BASIC METABOLIC PANEL 2021-05-23 David Gonzalez Scientologist 09:35:00 Hospital MAGNESIUM LEVEL 2021-05-23 Brynn, Omad Scientologist 09:35:00 Hospital PHOSPHORUS LEVEL 2021-05-23 [facility] Omad Scientologist 09:35:00 Hospital ESTIMATED GFR 2021-05-23 [facility] 09:35:00 Hospital NM HEPATOBILIARY W PHARM 2021-05-22 Jaret Decker Met hodist 15:49:11 [facility] ANTI-SPIKE IGG 2021-05-22 Zenia Navarro ist ANTIBODY TITER 09:37:00 [facility] CBC WITH PLATELET AND 2021-05-[facility] DIFFERENTIAL 09:37:00 [facility] BASIC METABOLIC PANEL 2021-05-22 Jaret Decker Method ist 09:37:00 [facility] TROPONIN T 2021-05-22 [facility] 09:37[facility]00 [facility] SEROLOGY PATIENT 2021-05-22 Zenia Navarro odist SURVEILLANCE 09:37:00 [facility] HEPATITIS B SURFACE ANTIGEN 2021-05-22 Ned Velasquez Meth odist 09:37:00 [facility] HEPATITIS B SURFACE AB, 2021-05-22 Ned Velasquezis t QUANTITATIVE 09:37:00 Hospital HEPATITIS B SURFACE ANTIBODY 2021-05-22 Ned Velasquez Met hodist 09:37:00 Hospital ESTIMATED GFR 2021-05-22 Jaret Decker Scientologist 09:37:00 [facility] AEROBIC CULTURE 2021-05-22 Giancarlo Mansfield 03:08:00 Hospital ANAEROBIC CULTURE 2021-05-22 Giancarlo Mansfield 03:08:00 Hospital GRAM STAIN 2021-05-22 Giancarlo Mansfield 03:08:00 Hospital CELL COUNT AND DIFFERENTIAL, BODY 2021-05-22 Giancarlo Mansfield FLUID 03:08:00 Hospital US ABDOMEN COMPLETE 2021-05-21 Jaret Deckeris t 20:31:16 [facility] POC GLUCOSE 2021-05-21 Jaret Decker 16:30:[address] [facility] CT CHEST WO CONTRAST 2021-05-21 Robb Barry 14:33:49 [facility] LACTIC ACID LEVEL, SEPSIS - NOW 2021-05-21 Giancarlo Mansfield AND REPEAT 2X EVERY 3 HOURS 08:50:00 Hosp [facility] CBC WITH PLATELET AND 2021-05-21 Giancarlo Mansfield DIFFERENTIAL 08:50:00 Hospital PROTHROMBIN TIME WITH INR 2021-05-21 Giancarlo Mansfield ist 08:50:00 [facility] COMPREHENSIVE METABOLIC PANEL 2021-05-21 Giancarlo Mansfield [...] 04:00:38 Hospital BLOOD CULTURE, AEROBIC & 2021-05-[address] ANAEROBIC 02:47:00 Hospital TROPONIN T 2021-05-21 Giancarlo Mansfield 02:45:00 Hospital LACTIC ACID LEVEL, SEPSIS - NOW 2021-05-21 Giancarlo Mansfield AND REPEAT 2X EVERY 3 HOURS 02:45:00 [facility]osp [facility] BLOOD CULTURE, AEROBIC & 2021-05-21 Manuel, Gus Methodi st ANAEROBIC 02:44:00 Hospital URINALYSIS SCREEN AND MICROSCOPY, 2021-05-21 Gus Jackson WITH REFLEX TO CULTURE 01:52:00 [facility] XR CHEST 1 VW PORTABLE 2021-05-21 Gus Jackson 00:03:55 [facility] GROUP A STREP, RAPID ANTIGEN 2021-05-20 [...] SURFACE ANTIBODY 2020-09-20 Jeremy Cool ethodist 06:49:00 [facility] HEPATITIS B SURFACE ANTIGEN 2020-09-20 Jeremy Cool thodist 06:49:00 Hospital AEROBIC CULTURE 2020-09-19 [place] 23:57:00 Hospital ANAEROBIC CULTURE 2020-09-19 [place] 23:57:00 Hospital GRAM STAIN 2020-09-19 Mel[place]ina [place] 23:57:00 Hospital CELL COUNT AND DIFFERENTIAL, BODY 2020-09-19 Royce Park Scientologist FLUID 23:56:00 Hospital HEPATITIS B SURFACE AB, 2020-09-[address] QUANTITATIVE 22:25:00 Hospital TROPONIN 2020-09-19 Maryan Oneill 22:25:[address] LUMBAR SPINE WO CONTRAST 2020-09-19 Maryan Oneill ethodist 18:46:23 Hospital XR CHEST 1 VW PORTABLE 2020-09-19 Maryan Oneill Method ist 18:00:32 Hospital ECG 12-LEAD 2020-09-19 Maryan Oneill Scient[facility] 17:57:30 Hospital HC COMPLETE BLD COUNT W/AUTO DIFF 2020-09-19 Ludmila Oneill Scientologist 17:44:00 Hospital COMPREHENSIVE METABOLIC PANEL 2020-09-19 Maryan Oneill Scientologist 17:44:00 Hospital CREATINE KINASE, TOTAL (CPK) 2020-09-19 Maryan Oneill Scientologist 17:44:00 Hospital TROPONIN 2020-09-19 Maryan Oneill Scientologist 17:44:00 Hospital LIPASE LEVEL 2020-09-19 Maryan Oneill Scientologist 17:44:00 Hospital B NATRIURETIC PEPTIDE 2020-09-[address] 17:44:00 Hospital ESTIMATED GFR 2020-09-19 Maryan Oneill Scient[facility] 17:44:00 Hospital ECG ED PRELIMINARY INTERPRETATION 2020-09-19 Ludmila Oneill Scientologist 17:27:13 Hospital HC COMPLETE BLD COUNT W/AUTO DIFF 2020-07-25 Jazmyn Torres 08:23:00 Hospital PROTHROMBIN TIME WITH INR 2020-07-25 Jazmyn Torres ist 08:23:00 Hospital COMPREHENSIVE METABOLIC PANEL 2020-07-25 Jazmyn Torres thodist 08:23:00 Hospital MAGNESIUM LEVEL 2020-07-25 Jazmyn Torresist 08:23:00 Hospital PHOSPHORUS LEVEL 2020-07-25 Jazmyn Torresist 08:23:00 Hospital ESTIMATED GFR 2020-07-25 Jazmyn Torresist 08:23:[address] ABDOMEN PELVIS WO CONTRAST 2020-07-25 Jazmyn Torres thodist 01:22:52 Hospital COVID-19 QUALITATIVE RT-PCR 2020-07-24 Brittni Del Valle thodist 07:34:00 [facility] URINE CULTURE 2020-07-24 Brittni Del Valle 06:38:00 [facility] URINALYSIS SCREEN AND MICROSCOPY, 2020-07-24 Brent Del Valle WITH REFLEX TO CULTURE 06:38:00 [facility] COMPREHENSIVE METABOLIC PANEL 2020-07-24 Brittni Del Valle 06:35:00 [facility] HC COMPLETE BLD COUNT W/AUTO DIFF 2020-07-24 Brent Del Valle 06:35:00 [facility] PROTHROMBIN TIME WITH INR 2020-07-24 Brittni Del Valle odist 06:35:00 [facility] PARTIAL THROMBOPLASTIN TIME (PTT) 2020-07-24 Brent Del Valle 06:35:00 [facility] ESTIMATED GFR 2020-07-24 Brittni Del Valle 06:35:00 [facility] [place] AN ELECTIVE ENDOTRACHEAL 2020-07-23 Isabelle Wetzel AIRWAY [...] Hospital ABO AND RH CONFIRMATION 2020-07-23 Dominique Nelson dist 13:30:00 E. [facility] ESTIMATED GFR 2020-07-23 [...] GFR 2020-07-12 Dominique Nelson 09:00:00 [facility] [place] AN ELECTIVE ENDOTRACHEAL 2020-07-12 Elvira Ashlee Mn thodist AIRWAY 01:07:00 [facility] LAPAROSCOPIC REMOVAL OR 2020-07-11 Dominique Nelson dist REPOSITIONING OF PERITONEAL 22:54:00 E. Hosp ital DIALYSIS CATHETER HC COMPLETE BLD COUNT W/AUTO DIFF 2020-07-11 Kieran Aquino 10:12:00 Hospital COMPREHENSIVE METABOLIC PANEL 2020-07-11 Constantin Aquino 10:12:00 Hospital MAGNESIUM LEVEL 2020-07-11 Mariajose Donato 10:12:00 [facility] PHOSPHORUS LEVEL 2020-07-11 Mariajose Donato 10:12:00 [facility] ESTIMATED GFR 2020-07-11 Constantin Aquino 10:12:00 Hospital XR ABDOMEN 1 VW 2020-07-11 Dominique Nelson 00:50:58 E. Hospital COVID-19 QUALITATIVE RT-PCR 2020-07-10 Constantin Aquinoodist 19:54:00 Hospital XR CHEST 1 VW PORTABLE 2020-07-[address] 18:39:03 Hospital ECG ED PRELIMINARY INTERPRETATION 2020-07-10 Kieran Aquino 18:35:21 Hospital ECG 12-LEAD 2020-07-10 Constantin Aquino 18:12:03 Hospital HC COMPLETE BLD COUNT W/AUTO DIFF 2020-07-10 Kieran Aquino [facility] 18:10:00 Hospital PROTHROMBIN TIME WITH INR 2020-07-10 Constantin Aquino Meth odist 18:10:00 Hospital PARTIAL THROMBOPLASTIN TIME (PTT) 2020-07-10 Kiearn Aquino [facility] 18:10:00 Hospital COMPREHENSIVE METABOLIC PANEL 2020-07-10 Modesto Aquinomeliza Ortega 18:10:00 Hospital TROPONIN 2020-07-10 Aquino, Constantinmeliza Ortega 18:10:00 Hospital B NATRIURETIC PEPTIDE 2020-07-10 Aquino, Constantinmeliza Poolis t 18:10:00 Hospital ESTIMATED GFR 2020-07-10 oMdesto Aquinomeliza Ortega 18:10:00 Hospital CREATINE KINASE, TOTAL (CPK) 2020-07-10 Constantin Aquino M ethodist 18:10:[address] Abdomen/Pelvis w/wo contrast 2019-10-24 [facility] [id number] 00:00:00 CT Chest wo contrast [id number] 2019-10-24 [facility] 00:00:00 Complex cystometrogram (ie, 2019-04-27 Jonathan rial [place] calibrated electronic equipment); 16:16:00 with voiding pressure studies (ie, bladder voiding pressure) and urethral pressure profile studies (ie, urethral closure pressure profile), any technique Electromyography [facility] or urethral sphincter, other 16:16:00 than needle, any technique Cystourethroscopy (separate 2019-04-27 [facility] procedure) 16:16:00 Injection procedure for 2019-04-27 [facility] cystography or voiding 16:16:00 urethrocystography Voiding pressure studies, 2019-04-27 [facility] [place] intra-abdominal (ie, rectal, 16:16:00 gastric, intraperitoneal) (List separately in addition to code for primary procedure) Complex uroflowmetry (eg, 2019-04-27 [facility] calibrated electronic equipment) 16:16:00 Measurement of post-voiding 2019-04-27 [facility] residual urine and/or bladder 16:15:00 capacity by ultrasound, non-imaging Aortic aneurysm repair [facility]01 [facility] of Abdominal aortic [facility] aneurysm repair Esophagogastroduodenoscopy [facility] [place] Colonoscopy [facility] AAA - Repair of abdominal aortic [facility] aneurysm using bifurcation graft Plan of Care Planned Activity Planned Date Details Comments Source Future Scheduled 2022-09-11 Screening for [facility] Test 14:14:39 malignant neoplasm of colon (procedure) [code = [id number]] Future Scheduled 2022-09-11 [facility] Test 14:14:39 malignant neoplasm of colon (procedure) [code = 061931241] Future Scheduled 2022-09-11 [facility] Test 14:14:39 malignant neoplasm of colon (procedure) [code = 136590302] Future Scheduled 2022-09-11 Hepatitis C screening [facility] Test 14:14:39 (procedure) [code = 229147761] Future Scheduled 2022-09-11 Screening for [facility] Test 14:14:39 malignant neoplasm of colon (procedure) [code = 998177447] Future Scheduled 2022-09-11 Screening for [facility] Test 14:14:39 malignant neoplasm of colon (procedure) [code = 952535118] Future Scheduled 2022-09-11 SHINGLES VACCINES (1 Met [facility] Test 14:14:39 of 2) [code = SHINGLES VACCINES (1 of 2)] Future Scheduled 2022-09-11 HEPATITIS B VACCINES Met [facility] Test 14:14:39 (1 of 3 - Risk 3-dose series) [code = HEPATITIS B VACCINES (1 of 3 - Risk 3-dose series)] Future Scheduled 2022-09-11 65+ PNEUMOCOCCAL [facility] Test 14:14:39 VACCINE (2 - PPSV23 if available, else PCV20) [code = 65+ PNEUMOCOCCAL VACCINE (2 - PPSV23 if available, else PCV20)] Future Scheduled 2022-09-11 COVID-19 VACCINE (4 - [facility] Test 14:14:39 Pfizer series) [code = COVID-19 VACCINE (4 - Pfizer series)] Future Scheduled 2022-09-11 INFLUENZA VACCINE Method [facility] Test 14:14:39 [code = INFLUENZA VACCINE] Future Scheduled 2022-09-10 Screening for [facility] Test 14:40:00 malignant neoplasm of colon (procedure) [code = [id number]] Future Scheduled 2022-09-10 [facility] 14:40:00 malignant neoplasm of colon (procedure) [code = 337287393] Future Scheduled 2022-09-10 [facility] 14:40:00 malignant neoplasm of colon (procedure) [code = 899774863] Future Scheduled 2022-09-10 Hepatitis C screening [facility] Test 14:40:00 (procedure) [code = 572620287] Future Scheduled 2022-09-10 [facility] 14:40:00 malignant neoplasm of colon (procedure) [code = 587989096] Future Scheduled 2022-09-10 [facility] Test 14:40:00 malignant neoplasm of colon (procedure) [code = 523540796] Future Scheduled 2022-09-10 SHINGLES VACCINES (1 Met [facility] Test 14:40:00 of 2) [code = SHINGLES VACCINES (1 of 2)] Future Scheduled 2022-09-10 HEPATITIS B VACCINES [facility] Test 14:40:00 (1 of 3 - Risk 3-dose series) [code = HEPATITIS B VACCINES (1 of 3 - Risk 3-dose series)] Future Scheduled 2022-09-10 65+ [facility] 14:40:00 VACCINE (2 - PPSV23 if available, else PCV20) [code = 65+ PNEUMOCOCCAL VACCINE (2 - PPSV23 if available, else PCV20)] Future Scheduled 2022-09-10 COVID-19 VACCINE (4 - [facility] Test 14:40:00 Pfizer series) [code = COVID-19 VACCINE (4 - Pfizer series)] Future Scheduled 2022-09-10 [facility]ACCINE [facility] Test 14:40:00 [code = INFLUENZA VACCINE] Future Scheduled 2022-09-10 [facility] 14:40:00 malignant neoplasm of colon (procedure) [code = 415206105] Future Scheduled 2022-09-10 [facility] 14:40:00 malignant neoplasm of colon (procedure) [code = 684245306] Future Scheduled 2022-09-10 [facility] Test 14:40:00 malignant neoplasm of colon (procedure) [code = 714215405] Future Scheduled 2022-09-10 Hepatitis C screening [facility] Test 14:40:00 (procedure) [code = 770710657] Future Scheduled 2022-09-10 [facility] 14:40:00 malignant neoplasm of colon (procedure) [code = 112479371] Future Scheduled 2022-09-10 [facility] Test 14:40:00 malignant neoplasm of colon (procedure) [code = 652062740] Future Scheduled 2022-09-10 SHINGLES VACCINES (1 [facility] Test 14:40:00 of 2) [code = SHINGLES VACCINES (1 of 2)] Future Scheduled 2022-09-10 HEPATITIS B VACCINES Met [facility] Test 14:40:00 (1 of 3 - Risk 3-dose series) [code = HEPATITIS B VACCINES (1 of 3 - Risk 3-dose series)] Future Scheduled 2022-09-10 65+ PNEUMOCOCCAL [facility] Test 14:40:00 VACCINE (2 - PPSV23 if available, else PCV20) [code = 65+ PNEUMOCOCCAL VACCINE (2 - PPSV23 if available, else PCV20)] Future Scheduled 2022-09-10 COVID-19 VACCINE (4 - [facility] Test 14:40:00 Pfizer series) [code = COVID-19 VACCINE (4 - Pfizer series)] Future Scheduled 2022-09-10 INFLUENZA VACCINE Method [facility] Test 14:40:00 [code = INFLUENZA VACCINE] Future Scheduled 2022-08-15 [facility] Test 19:38:42 malignant neoplasm of colon (procedure) [code = 622096063] Future Scheduled 2022-08-15 [facility] Test 19:38:42 malignant neoplasm of colon (procedure) [code = 907163924] Future Scheduled 2022-08-15 [facility] Test 19:38:42 malignant neoplasm of colon (procedure) [code = 192113169] Future Scheduled 2022-08-15 Hepatitis C screening [facility] Test 19:38:42 (procedure) [code = 787995615] Future Scheduled 2022-08-15 [facility] 19:38:42 malignant neoplasm of colon (procedure) [code = 497999273] Future Scheduled 2022-08-15 [facility] Test 19:38:42 malignant neoplasm of colon (procedure) [code = 521177106] Future Scheduled 2022-08-15 SHINGLES VACCINES (1 [facility] Test 19:38:42 of 2) [code = SHINGLES VACCINES (1 of 2)] Future Scheduled 2022-08-15 HEPATITIS B VACCINES Met [facility] Test 19:38:42 (1 of 3 - Risk 3-dose series) [code = HEPATITIS B VACCINES (1 of 3 - Risk 3-dose series)] Future Scheduled 2022-08-15 65+ [facility] Test 19:38:42 VACCINE (2 - PPSV23 if available, else PCV20) [code = 65+ PNEUMOCOCCAL VACCINE (2 - PPSV23 if available, else PCV20)] Future Scheduled 2022-08-15 COVID-19 VACCINE (4 - [facility] Test 19:38:42 Pfizer series) [code = COVID-19 VACCINE (4 - Pfizer series)] Future Scheduled 2022-08-15 INFLUENZA VACCINE Method [facility] Test 19:38:42 [code = INFLUENZA VACCINE] Future Scheduled 2022-08-08 Screening for [facility] Test 01:18:30 malignant neoplasm of colon (procedure) [code = 092528695] Future Scheduled 2022-08-08 Screening for [facility] Test 01:18:30 malignant neoplasm of colon (procedure) [code = 539184389] Future Scheduled 2022-08-08 Screening [facility] Test 01:18:30 malignant neoplasm of colon (procedure) [code = 927980028] Future Scheduled 2022-08-08 Hepatitis C screening [facility] Test 01:18:30 (procedure) [code = 664438777] Future Scheduled 2022-08-08 Scre[facility] Test 01:18:30 malignant neoplasm of colon (procedure) [code = 836734597] Future Scheduled 2022-08-08 Scre[facility] Test 01:18:30 malignant neoplasm of colon (procedure) [code = 310013866] Future Scheduled 2022-08-08 SHINGLES VACCINES (1 Met [facility] Test 01:18:30 of 2) [code = SHINGLES VACCINES (1 of 2)] Future Scheduled 2022-08-08 HEPATITIS B VACCINES Met [facility] Test 01:18:30 (1 of 3 - Risk 3-dose series) [code = HEPATITIS B VACCINES (1 of 3 - Risk 3-dose series)] Future Scheduled 2022-08-08 65+ [facility] Test 01:18:30 VACCINE (2 - PPSV23 if available, else PCV20) [code = 65+ PNEUMOCOCCAL VACCINE (2 - PPSV23 if available, else PCV20)] Future Scheduled 2022-08-08 COVID-19 VACCINE (4 - [facility] Test 01:18:30 Pfizer series) [code = COVID-19 VACCINE (4 - Pfizer series)] Future Scheduled 2022-08-08 INFLUENZA VACCINE Method [facility] Test 01:18:30 [code = INFLUENZA VACCINE] Future Scheduled 2022-08-01 Hepatitis C screening [facility] Test 12:51:59 (procedure) [code = 615146313] Future Scheduled 2022-08-01 COLONOSCOPY SCREENING [facility] Test 12:51:59 [code = COLONOSCOPY SCREENING] Future Scheduled 2022-08-01 SHINGLES VACCINES (1 [facility] Test 12:51:59 of 2) [code = SHINGLES VACCINES (1 of 2)] Future Scheduled 2022-08-01 HEPATITIS B VACCINES Met [facility] Test 12:51:59 (1 of 3 - Risk 3-dose series) [code = HEPATITIS B VACCINES (1 of 3 - Risk 3-dose series)] Future Scheduled 2022-08-01 65+ [facility] Test 12:51:59 VACCINE (2 - PPSV23 if available, else PCV20) [code = 65+ PNEUMOCOCCAL VACCINE (2 - PPSV23 if available, else PCV20)] Future Scheduled 2022-08-01 COVID-19 VACCINE (4 - [facility] Test 12:51:59 Booster for Pfizer series) [code = COVID-19 VACCINE (4 - Booster for Pfizer series)] Future Scheduled 2022-08-01 INFLUENZA VACCINE Method [facility] Test 12:51:59 [code = INFLUENZA VACCINE] Future Scheduled 2022-08-01 Hepatitis C screening [facility] Test 12:51:59 (procedure) [code = 996413591] Future Scheduled 2022-08-01 COLONOSCOPY SCREENING [facility] Test 12:51:59 [code = COLONOSCOPY SCREENING] Future Scheduled 2022-08-01 SHINGLES VACCINES (1 Met [facility] Test 12:51:59 of 2) [code = SHINGLES VACCINES (1 of 2)] Future Scheduled 2022-08-01 HEPATITIS B VACCINES Met [facility] Test 12:51:59 (1 of 3 - Risk 3-dose series) [code = HEPATITIS B VACCINES (1 of 3 - Risk 3-dose series)] Future Scheduled 2022-08-01 65+ [facility]CCAL [facility] Test 12:51:59 VACCINE (2 - PPSV23 if available, else PCV20) [code = 65+ PNEUMOCOCCAL VACCINE (2 - PPSV23 if available, else PCV20)] Future Scheduled 2022-08-01 COVID-19 VACCINE (4 - [facility] Test 12:51:59 Booster for Pfizer series) [code = COVID-19 VACCINE (4 - Booster for Pfizer series)] Future Scheduled 2022-08-01 INFLUENZA VACCINE Method [facility] Test 12:51:59 [code = INFLUENZA VACCINE] Future Scheduled 2022-06-27 Hepatitis C screening [facility] Test 04:13:42 (procedure) [code = 393707368] Future Scheduled 2022-06-27 COLONOSCOPY SCREENING [facility] Test 04:13:42 [code = COLONOSCOPY SCREENING] Future Scheduled 2022-06-27 SHINGLES VACCINES (1 Met [facility] Test 04:13:42 of 2) [code = SHINGLES VACCINES (1 of 2)] Future Scheduled 2022-06-27 HEPATITIS B VACCINES Met [facility] Test 04:13:42 (1 of 3 - Risk 3-dose series) [code = HEPATITIS B VACCINES (1 of 3 - Risk 3-dose series)] Future Scheduled 2022-06-27 65+ [facility]CCAL [facility] Test 04:13:42 VACCINE (2 - PPSV23 if available, else PCV20) [code = 65+ PNEUMOCOCCAL VACCINE (2 - PPSV23 if available, else PCV20)] Future Scheduled 2022-06-27 COVID-19 VACCINE (4 - [facility] Test 04:13:42 Booster for Pfizer series) [code = COVID-19 VACCINE (4 - Booster for Pfizer series)] Future Scheduled 2022-06-27 INFLUENZA VACCINE Method [facility] Test 04:13:42 [code = INFLUENZA VACCINE] Future Scheduled 2022-06-16 Hepatitis C screening [facility] Test 09:06:34 (procedure) [code = 356165190] Future Scheduled 2022-06-16 COLONOSCOPY SCREENING [facility] Test 09:06:34 [code = COLONOSCOPY SCREENING] Future Scheduled 2022-06-16 SHINGLES VACCINES (1 Met [facility] Test 09:06:34 of 2) [code = SHINGLES VACCINES (1 of 2)] Future Scheduled 2022-06-16 HEPATITIS B VACCINES Met [facility] Test 09:06:34 (1 of 3 - Risk 3-dose series) [code = HEPATITIS B VACCINES (1 of 3 - Risk 3-dose series)] Future Scheduled 2022-06-16 COVID-19 VACCINE (4 - [facility] Test 09:06:34 Booster for Pfizer series) [code = COVID-19 VACCINE (4 - Booster for Pfizer series)] Future Scheduled 2022-06-16 65+ [facility]CCAL [facility] Test 09:06:34 VACCINE (2 - PPSV23 if available, else PCV20) [code = 65+ PNEUMOCOCCAL VACCINE (2 - PPSV23 if available, else PCV20)] Future Scheduled 2022-06-16 INFLUENZA VACCINE [facility] Test 09:06:34 [code = INFLUENZA VACCINE] Future Scheduled 2022-06-16 Hepatitis C screening [facility] Test 09:06:34 (procedure) [code = 758573401] Future Scheduled 2022-06-16 COLONOSCOPY SCREENING [facility] Test 09:06:34 [code = COLONOSCOPY SCREENING] Future Scheduled 2022-06-16 SHINGLES VACCINES (1 Met [facility] Test 09:06:34 of 2) [code = SHINGLES VACCINES (1 of 2)] Future Scheduled 2022-06-16 HEPATITIS B VACCINES Met [facility] Test 09:06:34 (1 of 3 - Risk 3-dose series) [code = HEPATITIS B VACCINES (1 of 3 - Risk 3-dose series)] Future Scheduled 2022-06-16 COVID-19 VACCINE (4 - [facility] Test 09:06:34 Booster for Pfizer series) [code = COVID-19 VACCINE (4 - Booster for Pfizer series)] Future Scheduled 2022-06-16 65+ [facility] 09:06:34 VACCINE (2 - PPSV23 if available, else PCV20) [code = 65+ PNEUMOCOCCAL VACCINE (2 - PPSV23 if available, else PCV20)] Future Scheduled 2022-06-16 INFLUENZA VACCINE [facility] Test 09:06:34 [code = INFLUENZA VACCINE] Future Scheduled 2022-06-16 Hepatitis C screening [facility] Test 09:06:34 (procedure) [code = 984103520] Future Scheduled 2022-06-16 COLONOSCOPY SCREENING [facility] Test 09:06:34 [code = COLONOSCOPY SCREENING] Future Scheduled 2022-06-16 SHINGLES VACCINES (1 Met [facility] Test 09:06:34 of 2) [code = SHINGLES VACCINES (1 of 2)] Future Scheduled 2022-06-16 HEPATITIS B VACCINES Met [facility] Test 09:06:34 (1 of 3 - Risk 3-dose series) [code = HEPATITIS B VACCINES (1 of 3 - Risk 3-dose series)] Future Scheduled 2022-06-16 COVID-19 VACCINE (4 - [facility] Test 09:06:34 Booster for Pfizer series) [code = COVID-19 VACCINE (4 - Booster for Pfizer series)] Future Scheduled 2022-06-16 65+ [facility]AL [facility] Test 09:06:34 VACCINE (2 - PPSV23 if available, else PCV20) [code = 65+ PNEUMOCOCCAL VACCINE (2 - PPSV23 if available, else PCV20)] Future Scheduled 2022-06-16 INFLUENZA VACCINE [facility] Test 09:06:34 [code = INFLUENZA VACCINE] Future Scheduled 2022-06-06 Hepatitis C screening [facility] Test 01:51:15 (procedure) [code = 292256269] Future Scheduled 2022-06-06 COLONOSCOPY SCREENING [facility] Test 01:51:15 [code = COLONOSCOPY SCREENING] Future Scheduled 2022-06-06 SHINGLES VACCINES (1 Met [facility] Test 01:51:15 of 2) [code = SHINGLES VACCINES (1 of 2)] Future Scheduled 2022-06-06 HEPATITIS B VACCINES Met [facility] Test 01:51:15 (1 of 3 - Risk 3-dose series) [code = HEPATITIS B VACCINES (1 of 3 - Risk 3-dose series)] Future Scheduled 2022-06-06 COVID-19 VACCINE (4 - [facility] Test 01:51:15 Booster for Pfizer series) [code = COVID-19 VACCINE (4 - Booster for Pfizer series)] Future Scheduled 2022-06-06 65+ [facility] 01:51:15 VACCINE (2 - PPSV23 if available, else PCV20) [code = 65+ PNEUMOCOCCAL VACCINE (2 - PPSV23 if available, else PCV20)] Future Scheduled 2022-06-06 INFLUENZA VACCINE [facility] Test 01:51:15 [code = INFLUENZA VACCINE] Future Scheduled 2022-03-07 Hepatitis C screening [facility] Test 15:16:29 (procedure) [code = 869034408] Future Scheduled 2022-03-07 COLONOSCOPY SCREENING [facility] Test 15:16:29 [code = COLONOSCOPY SCREENING] Future Scheduled 2022-03-07 SHINGLES VACCINES (1 Met [facility] Test 15:16:29 of 2) [code = SHINGLES VACCINES (1 of 2)] Future Scheduled 2022-03-07 HEPATITIS B VACCINES Met [facility] Test 15:16:29 (1 of 3 - Risk 3-dose series) [code = HEPATITIS B VACCINES (1 of 3 - Risk 3-dose series)] Future Scheduled 2022-03-07 COVID-19 VACCINE (4 - [facility] Test 15:16:29 Booster for Pfizer series) [code = COVID-19 VACCINE (4 - Booster for Pfizer series)] Future Scheduled 2022-03-07 65+ [facility] Test 15:16:29 VACCINE (2 - PPSV23 if available, else PCV20) [code = 65+ PNEUMOCOCCAL VACCINE (2 - PPSV23 if available, else PCV20)] Future Scheduled 2022-03-07 INFLUENZA VACCINE [facility] Test 15:16:29 [code = INFLUENZA VACCINE] Future Scheduled 2022-03-07 Hepatitis C screening [facility] Test 15:16:29 (procedure) [code = 497572975] Future Scheduled 2022-03-07 COLONOSCOPY SCREENING [facility] Test 15:16:29 [code = COLONOSCOPY SCREENING] Future Scheduled 2022-03-07 SHINGLES VACCINES (1 Met [facility] Test 15:16:29 of 2) [code = SHINGLES VACCINES (1 of 2)] Future Scheduled 2022-03-07 HEPATITIS B VACCINES [facility] Test 15:16:29 (1 of 3 - Risk 3-dose series) [code = HEPATITIS B VACCINES (1 of 3 - Risk 3-dose series)] Future Scheduled 2022-03-07 COVID-19 VACCINE (4 - [facility] Test 15:16:29 Booster for Pfizer series) [code = COVID-19 VACCINE (4 - Booster for Pfizer series)] Future Scheduled 2022-03-07 65+ [facility]AL [facility] Test 15:16:29 VACCINE (2 - PPSV23 if available, else PCV20) [code = 65+ PNEUMOCOCCAL VACCINE (2 - PPSV23 if available, else PCV20)] Future Scheduled 2022-03-07 INFLUENZA VACCINE [facility] Test 15:16:29 [code = INFLUENZA VACCINE] Future Scheduled 2022-03-07 Hepatitis C screening [facility] Test 15:16:29 (procedure) [code = 560695289] Future Scheduled 2022-03-07 COLONOSCOPY SCREENING [facility] Test 15:16:29 [code = COLONOSCOPY SCREENING] Future Scheduled 2022-03-07 SHINGLES VACCINES (1 [facility] Test 15:16:29 of 2) [code = SHINGLES VACCINES (1 of 2)] Future Scheduled 2022-03-07 HEPATITIS B VACCINES [facility] Test 15:16:29 (1 of 3 - Risk 3-dose series) [code = HEPATITIS B VACCINES (1 of 3 - Risk 3-dose series)] Future Scheduled 2022-03-07 COVID-19 VACCINE (4 - [facility] Test 15:16:29 Booster for Pfizer series) [code = COVID-19 VACCINE (4 - Booster for Pfizer series)] Future Scheduled 2022-03-07 65+ [facility]AL [facility] 15:16:29 VACCINE (2 - PPSV23 if available, else PCV20) [code = 65+ PNEUMOCOCCAL VACCINE (2 - PPSV23 if available, else PCV20)] Future Scheduled 2022-03-07 INFLUENZA VACCINE [facility] Test 15:16:29 [code = INFLUENZA VACCINE] Future Scheduled 2022-03-07 Hepatitis C screening [facility] Test 15:16:29 (procedure) [code = 355538252] Future Scheduled 2022-03-07 COLONOSCOPY SCREENING [facility] Test 15:16:29 [code = COLONOSCOPY SCREENING] Future Scheduled 2022-03-07 SHINGLES VACCINES (1 Met [facility] Test 15:16:29 of 2) [code = SHINGLES VACCINES (1 of 2)] Future Scheduled 2022-03-07 HEPATITIS B VACCINES Met [facility] Test 15:16:29 (1 of 3 - Risk 3-dose series) [code = HEPATITIS B VACCINES (1 of 3 - Risk 3-dose series)] Future Scheduled 2022-03-07 COVID-19 VACCINE (4 - [facility] Test 15:16:29 Booster for Pfizer series) [code = COVID-19 VACCINE (4 - Booster for Pfizer series)] Future Scheduled 2022-03-07 65+ [facility]CCAL [facility] Test 15:16:29 VACCINE (2 - PPSV23 if available, else PCV20) [code = 65+ PNEUMOCOCCAL VACCINE (2 - PPSV23 if available, else PCV20)] Future Scheduled 2022-03-07 INFLUENZA VACCINE [facility] Test 15:16:29 [code = INFLUENZA VACCINE] Future Scheduled 2022-03-07 Hepatitis C screening [facility] Test 15:16:29 (procedure) [code = 742609556] Future Scheduled 2022-03-07 COLONOSCOPY SCREENING [facility] Test 15:16:29 [code = COLONOSCOPY SCREENING] Future Scheduled 2022-03-07 SHINGLES VACCINES (1 [facility] [facility] Test 15:16:29 of 2) [code = SHINGLES VACCINES (1 of 2)] Future Scheduled 2022-03-07 HEPATITIS B VACCINES Met [facility] Test 15:16:29 (1 of 3 - Risk 3-dose series) [code = HEPATITIS B VACCINES (1 of 3 - Risk 3-dose series)] Future Scheduled 2022-03-07 COVID-19 VACCINE (4 - Me [facility] Test 15:16:29 Booster for Pfizer series) [code = COVID-19 VACCINE (4 - Booster for Pfizer series)] Future Scheduled 2022-03-07 65+ [facility] 15:16:29 VACCINE (2 - PPSV23 if available, else PCV20) [code = 65+ PNEUMOCOCCAL VACCINE (2 - PPSV23 if available, else PCV20)] Future Scheduled 2022-03-07 INFLUENZA VACCINE Method [facility] Test 15:16:29 [code = INFLUENZA VACCINE] Future Scheduled 2022-03-07 Hepatitis C screening [facility] Test 15:16:29 (procedure) [code = 908376929] Future Scheduled 2022-03-07 COLONOSCOPY SCREENING [facility] Test 15:16:29 [code = COLONOSCOPY SCREENING] Future Scheduled 2022-03-07 SHINGLES VACCINES (1 Met [facility] Test 15:16:29 of 2) [code = SHINGLES VACCINES (1 of 2)] Future Scheduled 2022-03-07 HEPATITIS B VACCINES Met [facility] Test 15:16:29 (1 of 3 - Risk 3-dose series) [code = HEPATITIS B VACCINES (1 of 3 - Risk 3-dose series)] Future Scheduled 2022-03-07 COVID-19 VACCINE (4 - Me [facility] Test 15:16:29 Booster for Pfizer series) [code = COVID-19 VACCINE (4 - Booster for Pfizer series)] Future Scheduled 2022-03-07 65+ [facility] Test 15:16:29 VACCINE (2 - PPSV23 if available, else PCV20) [code = 65+ PNEUMOCOCCAL VACCINE (2 - PPSV23 if available, else PCV20)] Future Scheduled 2022-03-07 INFLUENZA VACCINE Method [facility] Test 15:16:29 [code = INFLUENZA VACCINE] Future Scheduled 2022-03-07 Hepatitis C screening [facility] Test 15:16:29 (procedure) [code = 325652429] Future Scheduled 2022-03-07 COLONOSCOPY SCREENING [facility] Test 15:16:29 [code = COLONOSCOPY SCREENING] Future Scheduled 2022-03-07 SHINGLES VACCINES (1 Met [facility] Test 15:16:29 of 2) [code = SHINGLES VACCINES (1 of 2)] Future Scheduled 2022-03-07 HEPATITIS B VACCINES Met [facility] Test 15:16:29 (1 of 3 - Risk 3-dose series) [code = HEPATITIS B VACCINES (1 of 3 - Risk 3-dose series)] Future Scheduled 2022-03-07 COVID-19 VACCINE (4 - Me [facility] Test 15:16:29 Booster for Pfizer series) [code = COVID-19 VACCINE (4 - Booster for Pfizer series)] Future Scheduled 2022-03-07 65+ [facility]OCOCCAL [facility] Test 15:16:29 VACCINE (2 - PPSV23 if available, else PCV20) [code = 65+ PNEUMOCOCCAL VACCINE (2 - PPSV23 if available, else PCV20)] Future Scheduled 2022-03-07 INFLUENZA VACCINE Method [facility] Test 15:16:29 [code = INFLUENZA VACCINE] Future Scheduled 2022-03-07 Hepatitis C screening [facility] Test 15:16:29 (procedure) [code = 156503874] Future Scheduled 2022-03-07 COLONOSCOPY SCREENING [facility] Test 15:16:29 [code = COLONOSCOPY SCREENING] Future Scheduled 2022-03-07 SHINGLES VACCINES (1 Met [facility] Test 15:16:29 of 2) [code = SHINGLES VACCINES (1 of 2)] Future Scheduled 2022-03-07 HEPATITIS B VACCINES [facility] Test 15:16:29 (1 of 3 - Risk 3-dose series) [code = HEPATITIS B VACCINES (1 of 3 - Risk 3-dose series)] Future Scheduled 2022-03-07 COVID-19 VACCINE (4 - [facility] Test 15:16:29 Booster for Pfizer series) [code = COVID-19 VACCINE (4 - Booster for Pfizer series)] Future Scheduled 2022-03-07 65+ [facility]AL [facility] Test 15:16:29 VACCINE (2 - PPSV23 if available, else PCV20) [code = 65+ PNEUMOCOCCAL VACCINE (2 - PPSV23 if available, else PCV20)] Future Scheduled 2022-03-07 INFLUENZA VACCINE Method [facility] Test 15:16:29 [code = INFLUENZA VACCINE] Future Scheduled 2022-01-04 Hepatitis C screening [facility] Test 08:50:17 (procedure) [code = 434390464] Future Scheduled 2022-01-04 COLONOSCOPY SCREENING [facility] Test 08:50:17 [code = COLONOSCOPY SCREENING] Future Scheduled 2022-01-04 SHINGLES VACCINES (1 Met [facility] Test 08:50:17 of 2) [code = SHINGLES VACCINES (1 of 2)] Future Scheduled 2022-01-04 HEPATITIS B VACCINES Met [facility] Test 08:50:17 (1 of 3 - Risk 3-dose series) [code = HEPATITIS B VACCINES (1 of 3 - Risk 3-dose series)] Future Scheduled 2022-01-04 COVID-19 VACCINE (4 [facility] Test 08:50:17 Booster for Pfizer series) [code = COVID-19 VACCINE (4 - Booster for Pfizer series)] Future Scheduled 2022-01-04 65+ PNEUMOCOCCAL [facility] Test 08:50:17 VACCINE (2 - PPSV23 if available, else PCV20) [code = 65+ PNEUMOCOCCAL VACCINE (2 - PPSV23 if available, else PCV20)] Future Scheduled 2022-01-04 INFLUENZA VACCINE Method [facility] Test 08:50:17 [code = INFLUENZA VACCINE] Future Scheduled 2021-12-14 Hepatitis C screening [facility] Test 06:18:15 (procedure) [code = 747583026] Future Scheduled 2021-12-14 COLONOSCOPY SCREENING [facility] Test 06:18:15 [code = COLONOSCOPY SCREENING] Future Scheduled 2021-12-14 SHINGLES VACCINES (1 Met [facility] Test 06:18:15 of 2) [code = SHINGLES VACCINES (1 of 2)] Future Scheduled 2021-12-14 HEPATITIS B VACCINES [facility] Test 06:18:15 (1 of 3 - Risk 3-dose series) [code = HEPATITIS B VACCINES (1 of 3 - Risk 3-dose series)] Future Scheduled 2021-12-14 COVID-19 VACCINE (4 - [facility] Test 06:18:15 Booster for Pfizer series) [code = COVID-19 VACCINE (4 - Booster for Pfizer series)] Future Scheduled 2021-12-14 65+ [facility]AL [facility] Test 06:18:15 VACCINE (2 - PPSV23 if available, else PCV20) [code = 65+ PNEUMOCOCCAL VACCINE (2 - PPSV23 if available, else PCV20)] Future Scheduled 2021-12-14 INFLUENZA VACCINE Method [facility] Hospital Test 06:18:15 [code = INFLUENZA VACCINE] Future Scheduled DIABETES: RETINAL EYE [facility] Test EXAM [code = DIABETES: RETINAL EYE EXAM] Future Scheduled DIABETIC FOOT EXAM [facility] Test [code = DIABETIC FOOT EXAM] Future Scheduled Hepatitis C screening [facility] Test (procedure) [code = 399827111] Future Scheduled COLONOSCOPY SCREENING [facility] Test [code = COLONOSCOPY SCREENING] Future Scheduled SHINGLES VACCINES (#1) M [facility] Test [code = SHINGLES VACCINES (#1)] Future Scheduled [facility] Test malignant neoplasm of lung (procedure) [code = 924780323] Future Scheduled 65+ [facility]OCO[facility] VACCINE (2 of 4 - PPSV23) [code = 65+ PNEUMOCOCCAL VACCINE (2 of 4 - PPSV23)] Future Scheduled INFLUENZA VACCINE [facility] Test [code = INFLUENZA VACCINE] Encounters Start End Encounter Admission Attending Care Care Encounter Source Date/Time Date/Time Type Type Clinicians Facility Department ID 2022-05-05 Outpatient [facility] [id number] [place] 07:32:28 [id number] Health 2022-05-02 Outpatient [facility] [id number] [place] 14:36:16 [id number] [facility] 2022-05-01 Outpatient [facility] [id number] [place] 12:45:33 [id number] [facility] 2022-04-24 Outpatient [facility] [id number] [place] 13:11:11 [id number] [facility] 2021-07-12 Outpatient DAYANA ALFREDO [facility] [id number] [facility] 13:01:44 2021 Outpatient AYDEN, [facility] [id number] [place] 01:03:11 [facility] 2018-06-23 Inpatient DAYANA ALFREDO [facility] [id number] [facility] 10:22:21 2022-12-08 2022-12-08 Outpatient SILVINO COSME [facility] [id number] [place] 08:45:00 08:45:00 [facility] 2022-09-09 2022-09-09 Outpatient CONI [facility] [id number] [facility] 00:00:00 00:00:00 BRITTNI 2022-07-31 2022-08-30 OP [facility] Transplant [id number] Memoria 16:00:00 04:59:00 Transplant Center 36 [facility] 2022-07-31 2022-08-29 Outpatient DAYANA ALFREDO [facility] [id number] [facility] 11:00:00 23:59:00 2022-07-31 2022-08-29 Outpatient Dayana Alfredo [facility] [id number] 11:00:00 23:59:00 Arash 36 2022-07-02 2022-08-01 OP [facility] Transplant [id number] Memoria 16:00:00 04:59:00 Transplant Center 35 l [facility] Pre 2022-07-02 2022-08-01 OP [facility] Transplant [id number] Memoria 16:00:00 04:59:00 Transplant Center 35 l [facility] Pre 2022-07-02 2022-07-31 Outpatient DAYANA ALFREDO [facility] DOMINIQUE [id number] [facility] 11:00:00 23:59:00 2022-07-02 2022-07-31 Outpatient Dayana Alfredo [facility] [id number] 11:00:00 23:59:00 Arash 35 2022-06-11 2022-07-11 OP [facility] Transplant [id number] Memoria 16:00:00 04:59:00 Transplant Center 34 l [facility] Pre 2022-06-11 2022-07-11 OP [facility] Transplant [id number] Memoria 16:00:00 04:59:00 Transplant Center 34 l [facility] Pre 2022-06-11 2022-07-10 Outpatient NEWBERRY, [facility] [id number] [facility] 11:00:00 23:59:00 BRITTNI 2022-06-11 2022-07-10 Outpatient Coni [facility] [id number] 11:00:00 23:59:00 [facility] 2022-07-09 2022-07-09 Outpatient R UNKNOWN, [facility] [id number] Univers 08:04:37 23:59:00 ATTENDING carolyney of [facility] 2022-07-09 2022-07-09 Hospital UnknownRUST [id number] [facility] 08:04:37 23:59:00 Encounter Attending JOSE 350.1.13.10 betzy jordan [place] 4.2.7.2.686 [facility] [id number] [place] [id number] [place] 2022-05-07 2022-06-06 OP [facility] Transplant [id number] Memoria 17:00:00 04:59:00 Transplant Center 33 l [facility] Pre 2022-05-07 2022-06-06 OP [facility] Transplant [id number] Memoria 17:00:00 04:59:00 Transplant Center 33 l [facility] Pre 2022-05-07 2022-06-05 Outpatient DAYANA ALFREDO [facility] DOMINIQUE [id number] [facility] 11:00:00 23:59:00 2022-05-07 2022-06-05 Outpatient Dayana Alfredo [facility] [id number] 11:00:00 23:59:00 Antoine 33 2022-04-09 2022-05-09 OP [facility] Transplant [id number] Memoria 17:00:00 05:59:00 Transplant Center 32 l [facility] Pre 2022-04-09 2022-05-09 OP [facility] Transplant [id number] Memoria 17:00:00 05:59:00 Transplant Center 32 [facility] Pre 2022-04-09 2022 Outpatient DAYANA ALFREDO [facility] DOMINIQUE [id number] [facility] 11:00:00 23:59:00 2022-04-09 2022 Outpatient Dayana Alfredo [facility] [id number] 11:00:00 23:59:00 [place] 32 2022-05-05 2022-05-05 Office CarmelinaSilvino arias [facility] 6400 1.2.840.114 [id number] [place] 08:45:00 09:15:00 Visit JAXON HAMMOND 350.1.13.58 Health 9.2.7.2.686 [id number] 2 2022-04-29 2022-04-29 DIZZINESS 1 MASON ELLIOTT [facility] [id number] 19:50:00 23:00:00 AND [facility] L christine LAM N, [address] BYPASS, (LUF/[place] [address] 2022-04-29 2022-04-29 Inpatient [facility] [id number] [facility] 00:00:00 00:00:00 [facility] [id number] Zoran N, [id number] ac60fe l BYPASS, (LUF/[place] [address] 2022-04-29 2022-04-29 Inpatient [facility] [id number] [facility] 00:[facility] 00:00:00 [facility] [place] [id number] [facility], [id number] [id number] l BYPASS, (LUF/[place] [address] 2022-04-26 2022-04-27 CYSTITIS 1 FRANKY, [facility] [id number] 19:27:00 22:10:00 UNS ALBINA [facility] [place] L ukes WITHOUT N, [address] l BYPASS, (LUF/[place] [address] 2022-04-26 2022-04-26 Inpatient [facility] [id number] -[id number] [facility] 00:[facility] 00:00:00 [facility] [place] [id number] [facility], [id number] [id number] l BYPASS, (LUF/[place] [address] 2022-04-26 2022-04-26 Inpatient [facility] [id number] [facility] 00:00:00 00:00:00 [facility] [place] [id number] [facility], [id number] [id number] l BYPASS, (LUF/[place] [address] 2022-01-07 2022-02-06 OP [facility] Transplant [id number] Memoria 17:00:00 05:59:00 Transplant Center [address] [place] [address] Pre 2022-01-07 2022-02-06 OP [facility] Transplant [id number] Memoria 17:00:00 05:59:00 Transplant Center [address] [place] [address] Pre 2022-01-07 2022-02-05 Outpatient DAYANA ALFREDO [facility] DOMINIQUE [id number] [facility] 11:00:00 23:59:00 2022-01-07 2022-02-05 Outpatient Dayana Alfredo [facility] [id number] 11:00:00 23:59:00 Arash 31 2021-12-242021-12-24 Outpatient nullFlavo [facility] [id number] Memoria 05:40:58 08:45:00 r braeden Zaldivar 2021-12-24 2021-12-24 Outpatient nullFlavo [facility] [id number] Memoria 05:40:58 08:45:00 r braeden Zaldivar 2021-11-08 2021-12-08 OP nullFlavo Transplant [id number] Memoria 16:00:00 04:59:00 Transplant r Center 30 l [facility] 2021-11-08 2021-12-08 OP nullFlavo Transplant [id number] Memoria 16:00:00 04:59:00 Transplant r Center 30 l [facility] 2021-11-08 2021-12-07 Outpatient DAYANA ALFREDO [facility] [id number] [facility] 11:00:00 23:59:00 2021-11-08 2021-12-07 Outpatient Dayana Alfredo [facility] [id number] 11:00:00 23:59:00 Anotine 30 2021-11-11 2021-11-12 Outpt Diag nullFlavo [facility] [id number] Memoria 13:35:00 04:59:00 Services r Outpatient 08 l Imaging [facility] 2021-11-11 2021-11-12 Outpt Diag nullFlavo [facility] [id number] Memoria 13:35:00 04:59:00 Services r Outpatient [address] [facility] 2021-11-11 2021-11-11 Outpatient Silvino Cosme [facility] [id number] 08:35:00 23:59:00 08 2021-10-28 2021-10-28 Office SILVINO COSME [facility] 6400 1.2.840.114 [id number] [place] 08:45:00 08:45:00 Visit JAXON HAMMOND 350.1.13.58 [facility] 9.2.7.2.686 [id number] 2 2021-09-06 2021-10-06 OP nullFlavo Transplant [id number] Memoria 16:00:00 04:59:00 Transplant r Center 29 l [facility] 2021-09-06 2021-10-06 OP nullFlavo Transplant [id number] Memoria 16:00:00 04:59:00 Transplant r Center 29 l [facility] [place] Pre 2021-09-06 2021-10-05 Outpatient DE [facility] [id number] [facility] 11:00:00 23:59:00 ELENA HAQUE 2021-09-06 2021-10-05 Outpatient De [facility] [id number] 11:00:00 23:59:00 CorwinCarmella fuchs 2021-07-02 2021-08-01 [place] [id number] Memoria 15:09:00 04:59:00 Transplant r Adv Heart 28 l Clinic - Failure [place] Pre 2021-07-02 2021-08-01 [place] [id number] Memoria 15:09:00 04:59:00 Transplant r Adv Heart 28 l Clinic - Failure [place] Mami 2021-07-02 2021-07-31 Outpatient PATARRO [facility] CAR 9628 [facility] 10:09:00 23:59:00 VIVEROSIDA Mendiola 2021-07-02 2021-07-31 [facility] [id number] 10:09:00 23:59:00 LeticiaYari 2021-07-23 2021-07-23 Outpatient nullFlavo [facility] 1126 21 Memoria 10:49:41 13:25:00 r [facility] 2021-07-23 2021-07-23 Outpatient nullFlavo [facility] 1126 21 Memoria 10:49:41 13:25:00 r [facility] 2021-07-23 2021-07-23 Outpatient Cortez, [id number] 05:49:41 08:25:00 Ciro Ibrahim 2021-07-23 2021-07-23 Outpatient nullFlavo [facility] [id number] Memoria 05:49:41 08:25:00 r braeden Zaldivar 2021-06-12 2021-06-12 Orders Cortez, 1.2.840.1 [id number] Methodi 00:00:00 00:00:00 Only Ciro 06451.1.[address] Oleg 3.430.2.7 Ho spita i .3.847901 l .8 2021-05-09 2021-06-08 OP nullFlavo [facility] [id number] Memoria 13:44:00 04:59:00 Transplant r [place] [address] [facility] n Pre 2021-05-09 2021-06-08 OP nullFlavo [facility] [id number] Memoria 13:44:00 04:59:00 Transplant r [place] [address] [facility] n Pre 2021-05-09 2021-06-07 Outpatient DE [facility] 9625 [facility] 07:44:00 23:59:00 ELENA HAQUE 2021-05-09 2021-06-07 Outpatient De [facility] [id number] 07:44:00 23:59:00 Shabnam, 25 Elena Prieto 2021 2021-06-07 OP nullFlavo Transplant [id number] Memoria 17:00:00 04:59:00 Transplant r Center 26 l [facility] Pre 2021 2021-06-07 OP nullFlavo Transplant [id number] Memoria 17:00:00 04:59:00 Transplant r [place] 26 [facility] Pre 2021 2021-06-06 Outpatient DE [facility] 9626 [facility] 11:00:00 23:59:00 ELENA HAQUE 2021 2021-06-06 Outpatient De [facility] [id number] 11:00:00 23:59:00 Shabnam, 26 Elena Ida 2021-05-20 2021-05-24 [facility] Gus Jackson 1.2.840.1 [id number] Methodi 18:07:00 13:42:00 [place] [address].1.[address] Shaikh Giancarlo 3.430.2.7 H oslisata Jaret Decker .3.114834 l David Gonzalez .8 2021-05-23 2021-05-23 Anesthesia Julia Clements 1.2.840.1 [id number] Methodi 12:44:00 13:00:00 Event Dylon Krishnamurthy 41246.1.[address] 3.430.2.7 Hospit a .3.654623 l .8 2021-05-23 2021-05-23 Surgery Cortez, 1.2.840.1 [id number] Methodi 12:20:00 12:45:[address] Jitendrabha 3.430.2.7 Ho spita i .3.197124 l .8 2021-05-20 2021-05-20 Travel 1.2.840.1 1.2.939.446 7736 [id number] Methodi 00:00:00 00:00:[address] 3.430.2.7 0.2.7.3.698 Ho spita .3.989858 084.8 l .8 2021-05-09 2021-05-10 Institutio nullFlavo [facility] [id number] Memoria 17:17:00 05:59:00 n Patient r Outpatient 06 l [facility] Zen Zaldivar 2021-05-09 2021-05-10 Institutio nullFlavo [facility] [id number] Memoria 17:17:00 05:59:00 n [facility] 2021-05-09 2021-05-09 Outpatient Dayana Alfredo [facility] [id number] 11:17:00 23:59:00 Antoine 06 2021-04-08 2021 OP nullFlavo Transplant [id number] Memoria 17:55:00 05:59:00 [facility] 2021 OP nullFlavo Transplant [id number] Memoria 17:55:00 05:59:00 Transplant r Center 24 l [facility] Pre 2021-04-08 2021-05-07 Outpatient DE [facility] 9624 [facility] 11:55:00 23:59:00 ELENA HAQUE 2021-04-08 2021-05-07 Outpatient De [facility] [id number] 11:55:00 23:59:00 Deannhananeshila, 24 Elena Prieto 2021-04-29 2021-04-29 Office Silvino Cosme 6400 1.2.840.114 [id number] [place] 09:00:00 09:30:00 Visit JAXON HAMMOND 350.1.13.58 [facility] 9.2.7.2.686 [id number] 2 2021-03-05 2021-04-04 OP nullFlavo Transplant [id number] Memoria 17:00:00 05:59:00 Transplant r Center 23 [facility] Pre 2021-03-05 2021-04-04 OP nullFlavo Transplant [id number] Memoria 17:00:00 05:59:00 Transplant r Center 23 [facility] Pre 2021-03-05 2021-04-03 [facility] 11:00:00 23:59:00 DEANNHANANEELENA FUCHS 2021-03-05 2021-04-03 Outpatient De [facility] [id number] 11:00:00 23:59:00 Deannhananeshila, 23 Elena Prieto 2021-02-04 2021-03-06 OP nullFlavo Transplant [id number] Memoria 17:00:00 05:59:00 Transplant r Center 22 [facility] Pre 2021-02-04 2021-03-06 OP nullFlavo Transplant [id number] Memoria 17:00:00 05:59:00 Transplant r Center 22 [facility] Pre 2021-02-04 2021-03-05 Outpatient DE [facility] 9622 [facility] 11:00:00 23:59:00 DEANNHANANEELENA FUCHS 2021-02-04 2021-03-05 Outpatient De [facility] TM [id number] 11:00:00 23:59:00 Shabnam 22 Elena Prieto 2021-02-06 2021-03-02 Recurring nullFlavo Oncology [id number] Memoria 14:58:00 00:00:00 r 19 braeden [place] 2021-02-06 2021-03-02 Recurring nullFlavo Oncology [id number] Memoria 14:58:00 00:00:00 r 19 braeden Zaldivar 2021-02-06 2021-03-01 Outpatient AYDEN, [facility] 9619 [facility] 08:58:00 18:00:00 CAMELIA 2021-02-06 2021-03-01 Outpatient Ayden, [facility] [id number] 08:58:00 18:00:00 Camelia 19 2021-02-11 2021-02-11 EXT MHH OP de EXT MSRDP 1.2.840.114 1 [id number] [place] 00:00:00 00:00:00 [place], LOCATION 350.1.13.58 Health Elena 9.2.7.2.686 [id number] 2021-02-11 2021-02-11 EXT MHH OP de EXT MSRDP 1.2.840.114 1 [id number] [place] 00:00:00 00:00:00 [place], LOCATION 350.1.13.58 Health Elena 9.2.7.2.686 [id number] 2021-01-01 2021-01-31 OP nullFlavo Transplant [id number] Memoria 16:00:00 05:59:00 Transplant r Center 21 l [facility] 2021-01-01 2021-01-31 OP nullFlavo Transplant [id number] Memoria 16:00:00 05:59:00 Transplant r Center 21 l [facility] 2021-01-01 2021-01-30 Outpatient De [facility] [id number] 11:00:00 23:59:00 Shabnam Elena Prieto 2021-01-02 2021-01-02 EXT [facility] OP de EXT MSRDP [id number] [place] 00:00:00 00:00:00 [place], LOCATION [id number] [facility] [id number] 2021-01-02 2021-01-02 EXT [facility] OP de EXT MSRDP [id number] [place] 00:00:00 [id number] Elena [id number] 2021-01-01 2021-01-01 Outpatient DE [facility] [id number] [facility] 11:00:00 11:00:00 SHABNAM ELENA 2020-11-30 2020-12-30 OP nullFlavo Transplant [id number] Memoria 20:00:00 04:59:00 Transplant r Center 12 [facility] 2020-11-30 2020-12-30 OP nullFlavo Transplant [id number] Memoria 20:00:00 04:59:00 Transplant r Center 12 [facility] 2020-11-30 2020-12-30 OP nullFlavo Transplant [id number] Memoria 16:00:00 04:59:00 Transplant r Center 20 [facility] 2020-11-30 2020-12-30 OP nullFlavo Transplant [id number] Memoria 16:00:00 04:59:00 Transplant r Center 20 [facility] 2020-11-30 2020-12-29 Outpatient DE [facility] [id number] [facility] 15:00:00 23:59:00 ELENA HAQUE 2020-11-30 2020-12-29 Outpatient De [facility] [id number] 15:00:00 23:59:00 Shabnam, 12 Elena Prieto 2020-11-30 2020-12-29 Outpatient DE [facility] [id number] [facility] 11:00:00 23:59:00 DEANNMARILYN ELENA 2020-11-30 2020-12-29 Outpatient De [facility] [id number] 11:00:00 23:59:00 Shabnam, 20 Elena Prieto 2020-12-27 2020-12-27 EXT MHH OP de EXT MSRDP 1.2.840.114 1 [id number] [place] 00:00:00 00:00:00 [place], LOCATION 350.1.13.58 Health Elena 9.2.7.2.686 [id number] 2020-12-27 2020-12-27 EXT MHH OP de EXT MSRDP 1.2.840.114 1 [id number] [place] 00:00:00 00:00:00 [place], LOCATION 350.1.13.58 Health Elena 9.2.7.2.686 [id number] 2020-12-03 2020-12-03 EXT MHH OP de EXT MSRDP 1.2.840.114 1 [id number] [place] 00:00:00 00:00:00 [place], LOCATION 350.1.13.58 Health Elena 9.2.7.2.686 [id number] 0 2020-12-03 2020-12-03 EXT MHH OP de EXT MSRDP 1.2.840.114 1 [id number] [place] 00:00:00 00:00:00 [place], LOCATION 350.1.13.58 Health Elena 9.2.7.2.686 [id number] 0 2020-10-31 2020-11-10 OP nullFlavo Transplant [id number] Memoria 16:00:00 04:59:00 Transplant r Center 18 [facility] 2020-10-31 2020-11-10 OP nullFlavo Transplant [id number] Memoria 16:00:00 04:59:00 Transplant r Center 18 [facility] 2020-10-31 2020-11-09 Outpatient DE [facility] 9618 [facility] 11:00:00 23:59:00 ELENA HAQUE 2020-10-31 2020-11-09 Out[facility] [id number] 11:00:00 23:59:00 Alfredo Haque 2020-10-22 2020-10-22 Office Silvino Cosme 6400 1.2.840.114 [id number] [place] 07:47:22 08:17:22 Visit JAXON HAMMOND 350.1.13.58 [place] [address].2.7.2.686 [id number] 2020-10-12 2020-10-12 EXT MHH OP de EXT MSRDP 1.2.840.114 1 [id number] [place] 00:00:00 00:00:00 [facility], [facility] 350.1.13.58 [facility] 9.2.7.2.686 [id number] 2020-10-12 2020-10-12 EXT MHH OP de EXT MSRDP 1.2.840.114 1 [id number] [place] 00:00:00 00:00:00 [facility] 350.1.13.58 [facility] 9.2.7.2.686 [id number] 0 2020-08-30 2020-09-29 OP nullFlavo Transplant [id number] Memoria 16:00:00 04:59:00 Transplant r Center 16 [facility] 2020-08-30 2020-09-29 OP nullFlavo Oncology [id number] Memoria 16:00:00 04:59:00 Transplant r 14 [facility] 2020-08-30 2020-09-29 OP nullFlavo Oncology [id number] Memoria 16:00:00 04:59:00 Transplant r 14 [facility] 2020-08-30 2020-09-29 OP nullFlavo Transplant [id number] Memoria 16:00:00 04:59:00 Transplant r [place] 16 [facility] 2020-08-30 2020-09-28 Outpatient HASBUN, [facility] 9616 [facility] 11:00:00 23:59:00 CH[place] 2020-08-30 2020-09-28 Outpatient AYDEN, [facility] 9614 [facility] 11:00:00 23:59:00 CAMELIA 2020-08-30 2020-09-28 [facility] [id number] 11:00:00 23:59:00 [place] 16 2020-08-30 2020-09-28 Outpatient Ayden [facility] [id number] 11:00:00 23:59:00 Camelia 14 2020-09-19 2020-09-20 Emergency Maryan Oneill 1.2.840.1 104 [id number] Methodi 12:17:00 17:35:00 Jeremy Cool 84498.1.[address] 3.430.2.7 Hospit a .3.674097 l .8 2020-09-19 2020-09-19 Travel 1.2.840.1 1.2.447.437 8347 [id number] Methodi 00:00:00 00:00:[address] 3.430.2.7 0.2.7.3.698 Ho spita .3.060850 084.8 l .8 2020-08-15 2020-08-15 EXT [facility] OP Hasbun, EXT MSRDP 1.2.840.114 1 [id number] [place] 00:00:00 00:00:00 [facility] LOCATION 350.1.13.58 H ealth 9.2.7.2.686 [id number] 0 2020-08-15 2020-08-15 EXT [facility] OP Hasbun, EXT MSRDP 1.2.840.114 1 [id number] [place] 00:00:00 00:00:00 [facility] LOCATION 350.1.13.58 H ealth 9.2.7.2.686 [id number] 0 2020-08-14 2020-08-14 Office Oppermann, 1.2.840.1 [id number] Methodi 09:57:50 10:57:04 Visit Dominique Macey 13662.1.1 600 s t 3.430.2.7 Hospit a .3.825478 l .8 2020-08-14 2020-08-14 Travel 1.2.840.1 1.2.424.482 8948 185301 Methodi 00:00:00 00:00:[address] 3.430.2.7 0.2.7.3.698 Ho spita .3.303780 084.8 l .8 2020-07-31 2020-07-31 Travel 1.2.840.1 1.2.400.811 4006 030604 Methodi 00:00:00 00:00:[address] 3.430.2.7 0.2.7.3.698 Ho spita .3.234464 084.8 l .8 2020-07-24 2020-07-25 Emergency Brittni Del Valle Calros 1.2.84 0.1 [id number] Methodi 01:19:00 15:25:00 Jazmyn Torres 94308.1.[address] [facility] Julian 3.430.2.7 Hospita .3.065592 l .8 2020-07-24 2020-07-24 Travel 1.2.840.1 1.2.170.127 9709 353637 Methodi 00:00:00 00:00:[address] 3.430.2.7 0.2.7.3.698 Ho spita .3.007770 084.8 l .8 2020-07-23 2020-07-23 [facility], 1.2.840.1 [id number] 21 [id number] Methodi 07:07:00 15:31:00 Encounter Dominique MendiolaChinmay 08982.1.[address] 3.430.2.7 Hospit a .3.657465 l .8 2020-07-23 2020-07-23 Anesthesia Isabelle Wetzel A. 1.2.840.1 10 0686206 [id number] Methodi 11:04:00 12:42:00 Event Violette Forbes 78575.1.[address] 3.430.2.7 Hospit a .3.717768 l .8 2020-07-23 2020-07-23 Surgery Oppermann, 1.2.840.1 [id number] 674 [id number] Methodi 10:25:00 11:50:00 Dominique Choudhury 03810.1.1 352 s t 3.430.2.7 Hospit a .3.003701 l .8 2020-07-20 2020-07-20 Pre-Admiss [facility], 1.2.840.1 [id number] Methodi 07:28:16 08:28:16 ion Dominique Choudhury 56981.1.1 719 s t Testing 3.430.2.7 Hospit a .3.022502 l .8 2020-07-19 2020-07-19 Travel 1.2.840.1 1.2.764.990 3797 495499 Methodi 00:00:00 00:00:[address] 3.430.2.7 0.2.7.3.698 Ho spita .3.351851 084.8 l .8 2020-07-19 2020-07-19 Prep for Mccain, 1.2.840.1 [id number] 22 Methodi 00:00:00 00:00:00 Surgery Abbi P [address]992.1.[address] 3.430.2.7 Hospit a .3.543819 l .8 2020-07-17 2020-07-17 Office [facility], 1.2.840.1 [id number] 295 [id number] Methodi 14:08:25 14:58:03 Visit Dominique Choudhury 09419.1.1 045 s t 3.430.2.7 Hospit a .3.173604 l .8 2020-07-17 2020-07-17 Travel 1.2.840.1 1.2.306.494 8923 336224 Methodi 00:00:00 00:00:[address] 3.430.2.7 0.2.7.3.698 Ho spita .3.924112 084.8 l .8 2020-06-14 2020-07-14 [facility] [id number] 08517 Memoria 12:03:00 04:59:00 Transplant r [place] 15 [facility] Pre 2020-06-14 2020-07-14 OP nullFlavo Transplant [id number] 08038 Memoria 12:03:00 04:59:00 Transplant r [place] 15 [facility] Pre 2020-06-14 2020-07-13 Outpatient HASBUWolf, [facility] 9615 [facility] 07:03:00 23:59:00 [place] 2020-06-14 2020-07-13 Outpatient Hasbun, [facility] [id number] 07:03:00 23:59:00 [place] 2020-07-10 2020-07-12 Emergency Constantin Aquino 1.2.840.1 1041 04506 [id number] Methodi 12:50:00 16:36:00 Jeremy Cool 20747.1.[address] 3.430.2.7 Hospit a .3.061642 l .8 2020-07-11 2020-07-11 Anesthesia Serge Tilley 1.2.8 40.1 [id number] Methodi 17:55:00 19:35:00 Event Ollie Rolle 70289.1.[address] 3.430.2.7 Hospit a .3.024918 l .8 2020-07-11 2020-07-11 Surgery Opdae, 1.2.840.1 [id number] 470 [id number] Methodi 15:30:00 16:55:00 Dominique Choudhury 04610.1.1 578 s t 3.430.2.7 Hospit a .3.576748 l .8 2020-07-10 2020-07-10 Travel 1.2.840.1 1.2.379.658 2524 937238 Methodi 00:00:00 00:00:[address] 3.430.2.7 0.2.7.3.698 Ho spita .3.438221 084.8 l .8 2020-06-09 2020-06-09 Outpatient MAIKOL [facility] 7508 [facility] 17:00:00 23:59:00 KATEY 2020-06-09 2020-06-09 EXT MHH OP Lassiter, EXT MSRDP 1.2.840.114 [id number] [place] 00:00:00 00:00:00 Katey LOCATION 350.1.13.58 Health 9.2.7.2.686 [id number] 0 2020-06-09 2020-06-09 EXT MHH OP Lassiter, EXT MSRDP 1.2.840.114 [id number] [place] 00:00:00 00:00:00 Katey LOCATION 350.1.13.58 Health 9.2.7.2.686 [id number] 0 2020 2020-06-07 OP nullFlavo Transplant [id number] Memoria 17:00:00 04:59:00 Transplant r [place] 13 [facility] 2020 2020-06-07 OP nullFlavo Transplant [id number] [id number] Memoria 17:00:00 04:59:00 Transplant r [place] 13 [facility] 2020 2020-06-06 Outpatient BLUE [facility] 9613 [facility] 11:00:00 23:59:00 [place] 2020 2020-06-06 Outpatient Blue [facility] [id number] 11:00:00 23:59:00 [place] 13 2020-04-04 2020-05-04 OP nullFlavo [facility] [id number] Memoria 12:56:00 05:59:00 Transplant r [address] for Herm nora Pre Advanced Heart Failure 2020-04-04 2020-05-04 OP nullFlavo [facility] [id number] Memoria 12:56:00 05:59:00 Transplant r Zen [address] [place] [address] for Herm nora Pre Advanced Heart Failure 2020-04-04 2020-05-03 Outpatient LETY [facility] CAR 9611 [facility] 06:56:00 23:59:00 IDA VIVEROS 2020-04-04 2020-05-03 [facility] [id number] 06:56:00 23:59:00 Ben Viveros 2020-04-23 2020-04-23 Appointmen SILVINO COSME, [facility] Urology - [id number] [place] 08:15:00 08:15:00 t; Bibi COSME i, M.D. [place] 2020-03-08 2020-04-07 OP nullFlavo Transplant [id number] [id number] Memoria 17:00:00 05:59:00 Transplant r Center [address] [place] [address] 2020-03-08 2020-04-07 OP nullFlavo Transplant [id number] Memoria 17:00:00 05:59:00 Transplant r [address] 2020-03-08 2020-04-06 Outpatient DE [facility] 9610 [facility] 11:00:00 23:59:00 SHABNAM ELENA 2020-03-08 2020-04-06 Outpatient De [facility] [id number] 11:00:00 23:59:00 BannerhananeAlix fuchs 2020-04-04 2020-04-04 Appointmen [facility] [id number] [place] 07:00:00 07:00:00 t; EVANS Physi ci ORGANTRANS ans PLANT, 2020-03-08 2020-03-08 EXT MHH OP de EXT MSRDP 1.2.840.114 1 [id number] [place] 00:00:00 00:00:00 [facility] 350.1.13.58 [facility] 9.2.7.2.686 [id number] 0 2020-03-08 2020-03-08 EXT MHH OP de EXT MSRDP 1.2.840.114 1 [id number] [place] 00:00:00 00:00:00 [facility] 350.1.13.58 [facility] 9.2.7.2.686 [id number] 0 2020-01-18 2020-02-17 OP nullFlavo Transplant [id number] Memoria 15:00:00 05:59:00 Transplant r Center [address] [place] [address] Pre 2020-01-18 2020-02-17 OP nullFlavo Transplant [id number] Memoria 15:00:00 05:59:00 Transplant r Center 09 l [facility] 2020-01-18 2020-02-16 Outpatient De [facility] [id number] 09:00:00 23:59:00 Shabnam, 09 Elena Prieto 2019-10-24 2019-10-24 Outpatient MHIE MHIE [id number] Memoria 09:45:00 09:45:00 03 [facility] 2019-10-24 2019-10-24 Outpatient MHIE MHIE [id number] Memoria 09:45:00 09:45:00 03 [facility] 2019-10-24 2019-10-24 AppointSILVINO [place], [place] [address] [id number] [place] 09:45:00 09:45:00 t; Bibi COSME i, M.D. [place] 2019-05-09 2019-05-09 Outpatient MAIKOL [facility] 0073 [facility] 15:00:00 15:00:00 KATEY 2019-04-27 2019-04-28 [place] [id number] Memoria 14:30:00 05:59:59 r Urology [facility] [place] 2019-04-27 2019-04-28 [place] [id number] Memoria 14:30:00 05:59:59 r Urology [facility] 2019-04-27 2019-04-28 [place] [id number] Memoria 14:00:00 05:59:59 r Urology TM 00 [facility] 2019-04-27 2019-04-28 [place] [id number] Memoria 14:00:00 05:59:59 r Urology TM 01 [facility] 2019-04-27 2019-04-28 [place] [id number] Memoria 14:00:00 05:59:59 r Urology [facility] 00 [facility] 2019-04-27 2019-04-28 [place] [id number] Memoria 14:00:00 05:59:59 r Urology TM 01 l [place] 2019-04-27 2019-04-27 Outpatient [facility] [id number] 08:30:00 23:59:59 02 2019-04-27 2019-04-27 [place] [id number] 08:00:00 23:59:59 00 2019-04-27 2019-04-27 [place] [id number] 08:00:00 23:59:59 2019-04-27 2019-04-27 Outpatient MHIE MHIE [id number] Memoria 08:30:00 08:30:00 02 l [place] 2019-04-27 2019-04-27 Outpatient MHIE MHIE [id number] Memoria 08:00:00 08:00:00 00 l [place] 2019-04-27 2019-04-27 Outpatient MHIE MHIE [id number] Memoria 08:00:00 08:00:00 01 l [place] 2019-03-16 2019-04-15 OP nullFlavo [facility] [id number] Memoria 12:50:00 05:59:00 Transplant r [place] [facility] Advanced [facility] 2019-03-16 2019-04-15 OP nullFlavo [facility] [id number] Memoria 12:50:00 05:59:00 Transplant r Zen [facility] Pre Advanced Heart Failure 2019-03-16 2019-04-14 Outpatient Yehuda [facility] [id number] 06:50:00 23:59:00 Arnaldo 05 Vikas 2019-04-01 2019-04-02 Outpatient [facility] [id number] Memoria 12:40:00 05:59:00 r [place] 06 [facility] 2019-04-01 2019-04-02 Outpatient [facility]Flavo [facility] [id number] Memoria 12:40:00 05:59:00 r [place] 06 [facility] 2019-04-01 2019-04-01 Outpatient Yehuda [facility] [id number] 06:40:00 23:59:00 Arnaldo 06 Vikas 2019-04-01 2019-04-01 Outpatient [facility] CAR [id number] [facility] 06:40:00 06:40:00 2019-03-16 2019-03-16 [facility] [id number] [place] 08:30:00 08:30:00 t; EVANS Physi ci ORGANTRANS ans PLANT, OP 2019-03-16 2019-03-16 Outpatient [facility] CAR [id number] [facility] 06:50:00 06:50:00 2018-08-20 2018-09-19 OP nullFlavo [facility] [id number] Memoria 13:05:00 04:59:00 [facility] [place] [facility] 2018-08-20 2018-09-19 OP nullFlavo [facility] [id number] Memoria 13:05:00 04:59:00 Transplant r [place] [facility] 2018-08-20 2018-09-18 Outpatient Yehuda [facility] [id number] 08:05:00 23:59:00 Arnaldo 03 Vikas 2018-08-20 2018-08-20 Outpatient [facility] CAR [id number] [facility] 08:05:00 08:05:00 2018-07-07 2018-08-06 Recurring [facility]Fl[facility] [id number] Memoria 14:33:00 04:59:00 r Zen [facility] 2018-07-07 2018-08-06 Recurring [facility]Fl[facility] [id number] Memoria 14:33:00 04:59:00 r Zen 01 [facility] 2018-07-07 2018-08-05 Outpatient Yehuda [facility] [id number] 09:33:00 23:59:00 Arnaldo 01 Vikas 2018-06-23 2018-07-23 Recurring nullFlavo Oncology [id number] Memoria 15:27:00 04:59:00 r 02 l Zen 2018-06-23 2018-07-23 Recurring nullFlavo Oncology [id number] Memoria 15:27:00 04:59:00 r Claudia Zaldivar 2018-06-23 2018-07-22 Outpatient Ayden [facility] [id number] 10:27:00 23:59:00 Camelia 02 2018-07-072018-07-09 [place]Fl[place] [id number] Memoria 13:31:02 04:59:59 Message r Adv Heart 01 l Failure [place] 2018-07-07 2018-07-09 [place] [id number] Memoria 13:31:02 04:59:59 Message r Adv Heart 01 l Failure [place] 2018-07-07 2018-07-08 Outpatient MH91 MH91 [id number] 08:31:02 23:59:59 2018-07-07 2018-07-07 Outpatient MH PUL [id number] MH 09:33:00 09:33:00 2018-06-30 2018-07-01 Outpt Diag nullFlavo [facility] [id number] Memoria 16:19:00 04:59:00 Services r Outpatient 03 l Imaging Zen [place] 2018-06-30 2018-07-01 Outpt Diag nullFlavo [facility] [id number] Memoria 16:19:00 04:59:00 Services r Outpatient 03 l Imaging [facility] 2018-06-30 2018-06-30 Outpatient Ayden, MHOIH OI [id number] 11:19:00 23:59:00 Camelia 03 2018-06-29 2018-06-29 Cherie ROYGAVIN [facility] UTP [id number] [place] 14:00:00 14:00:00 t; Timothy Tejeda i, an s [facility], M.D. KRISTOFER, M.D. 2018-06-23 2018-06-23 Outpatient [facility] [id number] [facility] 10:27:00 10:27:00 2018-06-23 2018-06-23 Appointmen AYDEN, [facility] UTP [id number] [place] 10:00:00 10:00:00 t; CAMELIA HENSLEY Phys ici MODUPE, M.D. ans M.D. 2018-06-08 2018-06-08 [facility] KIRILLGAVIN [facility] UTP [id number] [place] 10:00:00 10:00:00 t; Timothy Tejeda i, an s [facility], M.D. KRISTOFER, M.D. 2018-05-12 2018-05-13 Outpatient [facility] [id number] Memoria 13:51:00 04:59:00 r Zen 04 [facility] 2018-05-12 2018-05-13 Outpatient [facility] [id number] Memoria 13:51:00 04:59:00 r [place] 04 l [facility] 2018-05-12 2018-05-12 Outpatient Maikol [facility] [id number] 08:51:00 23:59:00 Katey Olga Lidia Laly 2018-04-06 2018-05-06 OP [facility]Flavo [facility] [id number] Memoria 14:35:00 05:59:00 Transplant r [place] [address] [facility] n Pre 2018-04-06 2018-05-06 OP nullFlavo [facility] [id number] Memoria 14:35:00 05:59:00 Transplant r [place] [address] [facility] n Pre 2018-04-06 2018-05-05 Outpatient [facility] [id number] 08:35:00 23:59:00 Raulito Haque [facility] 2017-09-23 2017-09-23 Outpt Diag nullFlavo [facility] [id number] Memoria 13:00:00 13:00:00 Services r Outpatient [address] [facility] 2017-09-23 2017-09-23 Outpt Diag nullFlavo [facility] [id number] Memoria 13:00:00 13:00:00 Services r Outpatient [address] [facility] 2017-09-23 2017-09-23 Outpatient Monet, CLARENCEOIP OIP [id number] 08:00:00 08:00:00 Lucila 02 [place] 2016-11-03 2016-11-03 Emergency [facility]Fl[facility] [id number] Memoria 15:01:00 21:46:00 r [place] 03 [facility] 2016-11-03 2016-11-03 Emergency nullFlavo [facility] [id number] Memoria 15:01:00 21:46:00 r [place] 03 [facility] 2016-11-03 2016-11-03 Outpatient SERGE Monson [facility] [id number] 10:01:00 16:46:00 Damion 03 2015-09-10 2015-09-10 EC nullFlavo [facility] [id number] Memoria 17:33:00 22:04:00 Emergency r Zen 02 l [facility] 2015-09-10 2015-09-10 EC nullFlavo [facility] [id number] Memoria 17:33:00 22:04:00 Emergency r [place] 02 l [facility] 2015-09-10 2015-09-10 Outpatient CLARENCE MenendezPL MHPL [id number] 12:33:00 17:04:00 Brigido Manning 2015-06-20 2015-06-20 EC nullFlavo [facility] [id number] Memoria 15:02:00 22:07:00 Emergency r [place] 01 [facility] 2015-06-20 2015-06-20 EC nullFlavo [facility] [id number] Memoria 15:02:00 22:07:00 Emergency r [place] 01 [facility] 2015-06-20 2015-06-[address] [id number] 10:02:00 17:07:00 Mayura 01 [facility] 2014-06-05 2014-06-06 Outpt Diag nullFlavo [facility] [id number] Memoria 15:20:00 04:59:00 Services r Outpatient [address] [facility] 2014-06-05 2014-06-06 Outpt Diag nullFlavo [facility] [id number] Memoria 15:20:00 04:59:00 Services r Outpatient [address] [facility] 2014-06-05 2014-06-05 Outpatient [place], 2.16.840. 2.16.840.1. 3 [id number] 10:20:00 23:59:00 Segundo [id number]. 155411.3.61 01 Edd 3.615.0.1 5.0.101 01 Results Test Description Test Time Test Comments Results Result Comments Source BLOOD BANK RESULTS 2022-06-17 12:07:00 Test Item Value Reference Range Interpretation Comme nts ABO/RH Confirm (test code = ABO/RH Confirm) O POS [facility] [id number] 12:07:00 Test Item Value Reference Range Interpretation Comments ABO/RH Confirm (test code = ABO/RH O POS Confirm) [id number] 11:57:00 Test Item Value Reference Range Interpretation Comments Lymphocytes (test code = Lymphocytes) 17.8 20.0-40.0 [place] [address]-04-18 11:57:00 Test Item Value Reference Range Interpretation Comments Monocytes (test code = Monocytes) 5.4 2.0-12.0 [place] [address]-04-18 11:57:00 Test Item Value Reference Range Interpretation Comments Eosinophils (test code = 1.6 See_Comment [A utomated message] The Eosinophils) system which ge nerated this result tra nsmitted reference range : <=4.0. The reference r carlos was not used to int erpret this result as normal/abnormal . [place] [address]-04-18 11:57:00 Test Item Value Reference Range Interpretation Comments Basophils (test code = 0.6 See_Comment [Aut omated message] The Basophils) system which ge nerated this result tra nsmitted reference range : <=1.0. The reference r carlos was not used to int erpret this result as normal/abnormal . [id number] 11:57:00 Test Item Value Reference Range Interpretation Comments Neutrophils # (test code = Neutrophils 7.1 1.5-8.1 #) [place] [address]-04-18 11:57:00 Test Item Value Reference Range Interpretation Comments Lymphocytes # (test code = Lymphocytes 1.7 1.0-5.5 #) [place] [address]-04-18 11:57:00 Test Item Value Reference Range Interpretation Comments Monocytes # (test code 0.5 See_Comment [Aut omated message] The = Monocytes #) system which generated this result tra nsmitted reference range : <=0.8. The reference r carlos was not used to int erpret this result as normal/abnormal . [place] [address]-04-18 11:57:00 Test Item Value Reference Range Interpretation Comments Eosinophils # (test code 0.2 See_Comment [A utomated message] The = Eosinophils #) system whic h generated this result tra nsmitted reference range : <=0.5. The reference r carlos was not used to int erpret this result as normal/abnormal . [facility] Hospit[id number] 11:57:00 Test Item Value Reference Range Interpretation Comments Basophils # (test code 0.1 See_Comment [Aut omated message] The = Basophils #) system which generated this result tra nsmitted reference range : <=0.2. The reference r carlos was not used to int erpret this result as normal/abnormal . [facility]WumdejmCXTIDTNTPW8817-34-78 11:57:00 Test Item Value Reference Range Interpretation Comments PT (test code = PT) 13.4 s 12.0-14.7 [facility]ReyotmxTTBBGSAZJX6865-79-54 11:57:00 Test Item Value Reference Range Interpretation Comments INR (test code = INR) 1.02 1 0.85-1.17 [facility]TgyapsgWRDDGHWQEH2778-89-25 11:57:00 Test Item Value Reference Range Interpretation Comments PTT (test code = PTT) 29.2 s 22.9-35.8 [facility] HospitalBzpibojEJTJNIPELU1279-70-54 11:57:00 Test Item Value Reference Range Interpretation Comments WBC (test code = WBC) 9.6 3.7-10.4 [facility]PmikzftGLXHFYMYBS2689-20-25 11:57:00 Test Item Value Reference Range Interpretation Comments RBC (test code = RBC) 3.28 4.70-6.10 [facility] HospitalZypmgwiNVXOGSBQTW9960-04-62 11:57:00 Test Item Value Reference Range Interpretation Comments Hgb (test code = Hgb) 10.3 14.0-18.0 [facility] HospitalYsxdvumTMJDNQDVFT4640-23-77 11:57:00 Test Item Value Reference Range Interpretation Comments Hct (test code = Hct) 31.9 42.0-54.0 [facility] HospitalYmdkobuJSMHVBJEVV4680-09-47 11:57:00 Test Item Value Reference Range Interpretation Comments MCV (test code = MCV) 97.3 80.0-94.0 [place] 352163-04-18 11:57:00 Test Item Value Reference Range Interpretation Comments MCH (test code = MCH) 31.3 pg 27.0-31.0 [facility] HospitalMxuumpnSMFCMSZLFR8851-07-85 11:57:00 Test Item Value Reference Range Interpretation Comments MCHC (test code = MCHC) 32.2 32.0-36.0 [place] 352163-04-18 11:57:00 Test Item Value Reference Range Interpretation Comments RDW (test code = RDW) 16.6 11.5-14.5 [facility] HospitalCphgpbaHKRHVRDGLL3040-55-19 11:57:00 Test Item Value Reference Range Interpretation Comments Platelet (test code = Platelet) 209 133-450 [place] 352163-04-18 11:57:00 Test Item Value Reference Range Interpretation Comments MPV (test code = MPV) 8.7 7.4-10.4 [place] [address]-04-18 11:57:00 Test Item Value Reference Range Interpretation Comments Glutam Acid Ab (test code = Glutam Acid no gt Ab) [facility]seiYFYHJTQGAO1193[facility]81-78 11:57:00 Test Item Value Reference Range Interpretation Comments Hep Bs Ab (test code = Hep Bs Ab) no gt [place] [address]-04-18 11:57:00 Test Item Value Reference Range Interpretation Comments Hep Bs Ag (test code Negative *NA*(06/17/22 = Hep Bs Ag) 6:57 AM) [place] [address]-04-18 11:57:00 Test Item Value Reference Range Interpretation Comments Hep C Ab (test code = Negative *NA*(06/17/22 Hep C Ab) 6:57 AM) [place] [address]-04-18 11:57:00 Test Item Value Reference Range Interpretation Comments HIV Ag/Ab 4th Gen Negative *NA*(06/17/22 (test code = HIV 6:57 AM) Ag/Ab 4th Gen) [place] 427543-04-18 11:57:00 Test Item Value Reference Range Interpretation Comments CMV IgG (test code = CMV IgG) no gt [facility]QkxgnuwPVMPUVZFJI8143-64-52 11:57:00 Test Item Value Reference Range Interpretation Comments EBV VCA IgG (test code = EBV VCA IgG) 213.00 [place] [address]-04-18 11:57:00 Test Item Value Reference Range Interpretation Comments Hep A Tot (test code = Hep A Tot) REACTIVE [place] [address]-04-18 11:57:00 Test Item Value Reference Range Interpretation Comments HSV 1 IgG (test code = HSV 1 IgG) 22.60 [place] [address]-04-18 11:57:00 Test Item Value Reference Range Interpretation Comments HSV 2 IgG (test code = HSV 2 IgG) no gt [facility]BbolnotYROBHWPXKQ0481-13-29 11:57:00 Test Item Value Reference Range Interpretation Comments T-Spot.TB (test code = T-Spot.TB) Negative [facility]woodDsdhtokBJYZYDKNRV7088-37-99 11:57:00 Test Item Value Reference Range Interpretation Comments T-Spot Pnl A Neg Ctrl Corrected (test 0 1 code = T-Spot Pnl A Neg Ctrl Corrected) [facility]woodCtehjbcWROXQRFPOT9013-25-65 11:57:00 Test Item Value Reference Range Interpretation Comments T-Spot Pnl B Neg Ctrl Corrected (test 0 1 code = T-Spot Pnl B Neg Ctrl Corrected) [facility]woodJzqundkCPKQOLINGN3095-87-29 11:57:00 Test Item Value Reference Range Interpretation Comments T-Spot Neg Ctrl (test code = T-Spot Passed Neg Ctrl) [facility]woodXdcvcvwXJBLEVLOVP8837-37-13 11:57:00 Test Item Value Reference Range Interpretation Comments T-Spot Pos Ctrl (test code = T-Spot Passed Pos Ctrl) [facility]woodYfxyrwcJXKYTENGSC7008-61-53 11:57:00 Test Item Value Reference Range Interpretation Comments Treponemal Ab (test code Non-Reactive = Treponemal Ab) *NA*(06/17/22 6:57 AM) [facility]evilleAvmhievADIYXGSALC0007-88-04 11:57:00 Test Item Value Reference Range Interpretation Comments Varicella IgG (test code = Varicella 912.50 IgG) [facility]woodYwglgjoMHMQLCLGGF6301-34-74 11:57:00 Test Item Value Reference Range Interpretation Comments Mumps IgG (test code = Mumps IgG) no gt [facility] PasoEivvjqsOOPTGGXJUR6750-91-05 11:57:00 Test Item Value Reference Range Interpretation Comments Rubella IgG (test code = Rubella IgG) no gt [facility]woodYnqwhscGLFPHZTAGL6451-73-04 11:57:00 Test Item Value Reference Range Interpretation Comments Rubeola IgG (test code = Rubeola IgG) 174.00 [facility]woodREFEREERLANG[facility] EGEDXTJ3888-97-88 11:57:00 Test Item Value Reference Range Interpretation Comments Misc Quest (test code = Misc Quest) REPORT [facility] BANK MZGQQJR7996-49-37 11:57:00 Test Item Value Reference Range Interpretation Comments Titer (test code = Titer) 64 1 [facility] HNLLOKR8242-58-12 11:57:00 Test Item Value Reference Range Interpretation Comments Antibody Titered (test code = Anti-A1 Antibody Titered) [facility] CQXZVPL8920-67-51 11:57:00 Test Item Value Reference Range Interpretation Comments Titer2 (test code = Titer2) 32 1 [facility] WQNTYMG8012-49-51 11:57:00 Test Item Value Reference Range Interpretation Comments Antibody Titered2 (test code = Anti-B Antibody Titered2) [facility] PGVZOZC6000-59-09 11:57:00 Test Item Value Reference Range Interpretation Comments OP ABORh Int (test code = OP ABORh Int) O POS [facility] NZALSMX9111-13-49 11:57:00 Test Item Value Reference Range Interpretation Comments OP ABSC Gel Interp Negative (06/17/22 6:57 (test code = OP ABSC AM) Gel Interp) [facility]AcvfyttLRGBXOECN5374-59-41 11:57:00 Test Item Value Reference Range Interpretation Comments Glucose Lvl (test code = Glucose Lvl) 95 70-99 [facility] CenterPrpneerFVRKKNATT3132-35-83 11:57:00 Test Item Value Reference Range Interpretation Comments BUN (test code = BUN) 60 7-22 [facility] CenterFzyujkzADAUYKXAF2984-74-28 11:57:00 Test Item Value Reference Range Interpretation Comments Creatinine Lvl (test code = Creatinine 6.84 0.50-1.40 Lvl) [facility] CenterUwjqvpmWSTUFBPYZ8090-15-22 11:57:00 Test Item Value Reference Range Interpretation Comments Sodium Lvl (test code = Sodium Lvl) 141 135-145 [facility] CenterWjjsoihJRWMEGTJA2868-78-39 11:57:00 Test Item Value Reference Range Interpretation Comments Potassium Lvl (test code = Potassium 3.8 3.5-5.1 Lvl) [facility] CenterCjiahqxSNQKHINBC5539-42-23 11:57:00 Test Item Value Reference Range Interpretation Comments Chloride Lvl (test code = Chloride Lvl) 109 95-109 [facility] CenterVkxreuzYVTSDLEPW9779-38-29 11:57:00 Test Item Value Reference Range Interpretation Comments CO2 (test code = CO2) 24 24-32 [facility] CenterMwtdwhsFDLCCCZHV7145-92-65 11:57:00 Test Item Value Reference Range Interpretation Comments Calcium Lvl (test code = Calcium Lvl) 8.6 8.5-10.5 [facility] JugcvcoMSNEQRWNH2721-88-71 11:57:00 Test Item Value Reference Range Interpretation Comments Total Protein (test code = Total 6.6 6.4-8.4 Protein) [facility] PasoBvkblaxLEMIFXRMV1859-30-62 11:57:00 Test Item Value Reference Range Interpretation Comments Albumin Lvl (test code = Albumin Lvl) 3.3 3.5-5.0 [facility] PasoSzbaswqNWFZSCVMO5957-55-23 11:57:00 Test Item Value Reference Range Interpretation Comments ALT (test code = ALT) 11 See_Comment [Auto mated message] The system which ge nerated this result transmit nicko reference range : <=65. The reference range was not used to interpr et this result as adebayo l/abnormal. [facility] PasoZfcyuxbCZZHUVJRA8765-77-26 11:57:00 Test Item Value Reference Range Interpretation Comments AST (test code = AST) 7 See_Comment [Auto mated message] The system which ge nerated this result transmit nicko reference range : <=37. The reference range was not used to interpr et this result as adebayo l/abnormal. [facility] HqxdztaGBHFGDMNT9861-99-97 11:57:00 Test Item Value Reference Range Interpretation Comments Alk Phos (test code = Alk Phos) 48 39-136 [facility] HihxndnMGIIRPCVW8076-78-15 11:57:00 Test Item Value Reference Range Interpretation Comments Bili Total (test code = Bili Total) 0.4 0.2-1.3 [facility] FentagjMQEOAVIDO9510-00-02 11:57:00 Test Item Value Reference Range Interpretation Comments AGAP (test code = AGAP) 11.8 10.0-20.0 [facility] MnkvejuGGLRFMWKN9745-60-61 11:57:00 Test Item Value Reference Range Interpretation Comments B/C Ratio (test code = B/C Ratio) 9 1 6-25 [facility] PasoOufjiquTBCZEPVBI6926-17-00 11:57:00 Test Item Value Reference Range Interpretation Comments Globulin (test code = Globulin) 3.3 2.7-4.2 [facility] OsoizwnQFQDRGENW7502-51-60 11:57:00 Test Item Value Reference Range Interpretation Comments A/G Ratio (test code = A/G Ratio) 1.0 1 0.7-1.6 [facility] CenterSdmmvqsJFROWYBDN6048-17-08 11:57:00 Test Item Value Reference Range Interpretation Comments eGFR (test code = eGFR) 8 [facility] CenterZrcitdzJGVXWQIEH9327-54-06 11:57:00 Test Item Value Reference Range Interpretation Comments Bili Total (test code = Bili Total) 0.4 0.2-1.3 [facility] CenterMgdahkpQQSNQWELX3851-04-57 11:57:00 Test Item Value Reference Range Interpretation Comments Bili Direct (test code 0.1 See_Comment [Aut omated message] The = Bili Direct) system which generated this result tra nsmitted reference range : <=0.3. The reference r carlos was not used to int erpret this result as adebayo l/abnormal. [facility] CenterMhauqtiMJTAXECKW6654-52-75 11:57:00 Test Item Value Reference Range Interpretation Comments Bili Indirect (test 0.3 See_Comment [Automa nicko message] The code = Bili Indirect) system which generated this result tra nsmitted reference range : <=1.0. The reference r carlos was not used to int erpret this result as normal/abnormal . [facility] CenterGiamtlmEUMCKQMDB7401-52-64 11:57:00 Test Item Value Reference Range Interpretation Comments C-Peptide (test code = C-Peptide) 10.96 0.80-3.85 [facility] CenterPlylbkpSWJVIBHGV1221-74-04 11:57:00 Test Item Value Reference Range Interpretation Comments Nicotine Lvl (test code = Nicotine Lvl) no gt [facility] CenterVmsuimgWWUOCAZHW5624-50-16 11:57:00 Test Item Value Reference Range Interpretation Comments Cotinine Lvl (test code = Cotinine Lvl) no gt [facility] CenterObhipnjVZNTVBHHP1178-64-40 11:57:00 Test Item Value Reference Range Interpretation Comments Hgb A1C (test code = Hgb A1C) 5.3 [facility] CenterOsiszmdXABEDJQXQ6327-83-93 11:57:00 Test Item Value Reference Range Interpretation Comments Trig (test code = Trig) 55 [facility] CenterFhummpkTOILCFUEV1005-77-58 11:57:00 Test Item Value Reference Range Interpretation Comments Chol (test code = Chol) 88 [facility] CenterYxpmsfqJVOSHLWUS0355-79-68 11:57:00 Test Item Value Reference Range Interpretation Comments HDL (test code = HDL) 37 [place] [address]-04-18 11:57:00 Test Item Value Reference Range Interpretation Comments Chol/HDL Ratio (test code = Chol/HDL 2.38 1 4.00-7.30 Ratio) [place] [address]-04-18 11:57:00 Test Item Value Reference Range Interpretation Comments LDL (Calculated) (test code = LDL 40 (Calculated)) [place] [address]-04-18 11:57:00 Test Item Value Reference Range Interpretation Comments VLDL (test code = VLDL) 11 1 [place] [address]-04-18 11:57:00 Test Item Value Reference Range Interpretation Comments Phosphorus (test code = Phosphorus) 6.5 2.5-4.5 [place] [address]-04-18 11:57:00 Test Item Value Reference Range Interpretation Comments PSA (test code = PSA) 1.12 [place] [address]-04-18 11:57:00 Test Item Value Reference Range Interpretation Comments LDH (test code = LDH) 137 98-192 [place] [address]-04-18 11:57:00 Test Item Value Reference Range Interpretation Comments Segs (test code = Segs) 74.6 45.0-75.0 [place] [address]-04-18 11:57:00 Test Item Value Reference Range Interpretation Comments Lymphocytes (test code = Lymphocytes) 17.8 20.0-40.0 [place] [address]-04-18 11:57:00 Test Item Value Reference Range Interpretation Comments Monocytes (test code = Monocytes) 5.4 2.0-12.0 [place] [address]-04-18 11:57:00 Test Item Value Reference Range Interpretation Comments Eosinophils (test code = 1.6 See_Comment [A utomated message] The Eosinophils) system which ge nerated this result tra nsmitted reference range : <=4.0. The reference r carlos was not used to int erpret this result as normal/abnormal . [place] [address]-04-18 11:57:00 Test Item Value Reference Range Interpretation Comments Basophils (test code = 0.6 See_Comment [Aut omated message] The Basophils) system which ge nerated this result tra nsmitted reference range : <=1.0. The reference r carlos was not used to int erpret this result as normal/abnormal . [place] 352163-04-18 11:57:00 Test Item Value Reference Range Interpretation Comments Neutrophils # (test code = Neutrophils 7.1 1.5-8.1 #) [facility]StaltpoEMNBIXYIPR3638-42-13 11:57:00 Test Item Value Reference Range Interpretation Comments Lymphocytes # (test code = Lymphocytes 1.7 1.0-5.5 #) [place] [address]-04-18 11:57:00 Test Item Value Reference Range Interpretation Comments Monocytes # (test code 0.5 See_Comment [Aut omated message] The = Monocytes #) system which generated this result tra nsmitted reference range : <=0.8. The reference r cralos was not used to int erpret this result as normal/abnormal . [place] [address]-04-18 11:57:00 Test Item Value Reference Range Interpretation Comments Eosinophils # (test code 0.2 See_Comment [A utomated message] The = Eosinophils #) system whic h generated this result tra nsmitted reference range : <=0.5. The reference r carlos was not used to int erpret this result as normal/abnormal . [facility] HospitalSvqguwlJPLRPBZCQY8245-17-05 11:57:00 Test Item Value Reference Range Interpretation Comments Basophils # (test code 0.1 See_Comment [Aut omated message] The = Basophils #) system which generated this result tra nsmitted reference range : <=0.2. The reference r carlos was not used to int erpret this result as normal/abnormal . [place] 352163-04-18 11:57:00 Test Item Value Reference Range Interpretation Comments PT (test code = PT) 13.4 s 12.0-14.7 [place] [address]-04-18 11:57:00 Test Item Value Reference Range Interpretation Comments INR (test code = INR) 1.02 1 0.85-1.17 [place] [address]-04-18 11:57:00 Test Item Value Reference Range Interpretation Comments PTT (test code = PTT) 29.2 s 22.9-35.8 [place] [address]-04-18 11:57:00 Test Item Value Reference Range Interpretation Comments WBC (test code = WBC) 9.6 3.7-10.4 [facility] HospitalQsqdsnrLRTVKVKYKW5718-44-94 11:57:00 Test Item Value Reference Range Interpretation Comments RBC (test code = RBC) 3.28 4.70-6.10 [facility] HospitalRmhfulvKTRFVJVMVW1923-49-50 11:57:00 Test Item Value Reference Range Interpretation Comments Hgb (test code = Hgb) 10.3 14.0-18.0 [place] 352163-04-18 11:57:00 Test Item Value Reference Range Interpretation Comments Hct (test code = Hct) 31.9 42.0-54.0 [place] 352163-04-18 11:57:00 Test Item Value Reference Range Interpretation Comments MCV (test code = MCV) 97.3 80.0-94.0 [place] 352163-04-18 11:57:00 Test Item Value Reference Range Interpretation Comments MCH (test code = MCH) 31.3 pg 27.0-31.0 [facility] HospitalKwkkbiuSYAQDLAWFB1895-64-21 11:57:00 Test Item Value Reference Range Interpretation Comments MCHC (test code = MCHC) 32.2 32.0-36.0 [facility] HospitalFfmeuzwKGZIMYKSHI3335-19-65 11:57:00 Test Item Value Reference Range Interpretation Comments RDW (test code = RDW) 16.6 11.5-14.5 [facility] HospitalUekmqhpQKFNQEDBYA0898-92-72 11:57:00 Test Item Value Reference Range Interpretation Comments Platelet (test code = Platelet) 209 133-450 [facility] HospitalXsnfafnEDKYGHJQEI0775-05-68 11:57:00 Test Item Value Reference Range Interpretation Comments MPV (test code = MPV) 8.7 7.4-10.4 [facility]evilleGlxmxeuRBEWYTTIVW0307-61-18 11:57:00 Test Item Value Reference Range Interpretation Comments Glutam Acid Ab (test code = Glutam Acid no gt Ab) [facility]evilleFrnzioyISLIDJNDVT1402-87-24 11:57:00 Test Item Value Reference Range Interpretation Comments Hep Bs Ab (test code = Hep Bs Ab) no gt [facility]evilleHwtckmnIDSGQYTSFO9707-98-81 11:57:00 Test Item Value Reference Range Interpretation Comments Hep Bs Ag (test code Negative *NA*(06/17/22 = Hep Bs Ag) 6:57 AM) [facility]evilleUulloqkKOQPYPNXUR2878-43-62 11:57:00 Test Item Value Reference Range Interpretation Comments Hep C Ab (test code = Negative *NA*(06/17/22 Hep C Ab) 6:57 AM) [facility]evilleEvtpvvrGBPEGOPYRL8115-53-10 11:57:00 Test Item Value Reference Range Interpretation Comments HIV Ag/Ab 4th Gen Negative *NA*(06/17/22 (test code = HIV 6:57 AM) Ag/Ab 4th Gen) [facility]evilleIpuqszmVHTFXXKTGI5514-21-09 11:57:00 Test Item Value Reference Range Interpretation Comments CMV IgG (test code = CMV IgG) no gt [facility]evilleGxgavnzKKCVFOVNVN9777-21-45 11:57:00 Test Item Value Reference Range Interpretation Comments EBV VCA IgG (test code = EBV VCA IgG) 213.00 [facility]evilleAxtpuztUAHLVQKIXY8259-94-06 11:57:00 Test Item Value Reference Range Interpretation Comments Hep A Tot (test code = Hep A Tot) REACTIVE [facility]evilleMhcftmgUSUXRWPUKW7618-19-87 11:57:00 Test Item Value Reference Range Interpretation Comments HSV 1 IgG (test code = HSV 1 IgG) 22.60 [facility] BeevilleTmtnpvyBZZFCCRDMJ6670-05-43 11:57:00 Test Item Value Reference Range Interpretation Comments HSV 2 IgG (test code = HSV 2 IgG) no gt [facility]evilleEwbgdekZXAKPIBZML0873-23-57 11:57:00 Test Item Value Reference Range Interpretation Comments T-Spot.TB (test code = T-Spot.TB) Negative [facility]evilleDyecqzcYGGVUAVXAF8870-41-00 11:57:00 Test Item Value Reference Range Interpretation Comments T-Spot Pnl A Neg Ctrl Corrected (test 0 1 code = T-Spot Pnl A Neg Ctrl Corrected) [facility]evilleMecmahpAPMKLAXNDU5828-01-34 11:57:00 Test Item Value Reference Range Interpretation Comments T-Spot Pnl B Neg Ctrl Corrected (test 0 1 code = T-Spot Pnl B Neg Ctrl Corrected) [facility]evilleOswdftaKYZOVFPIOO9902-45-43 11:57:00 Test Item Value Reference Range Interpretation Comments T-Spot Neg Ctrl (test code = T-Spot Passed Neg Ctrl) [facility]evilleVnegufwNEQYGRAZLU6280-21-96 11:57:00 Test Item Value Reference Range Interpretation Comments T-Spot Pos Ctrl (test code = T-Spot Passed Pos Ctrl) [facility]evilleBjhaspbBCAEJFOCTY0719-46-46 11:57:00 Test Item Value Reference Range Interpretation Comments Treponemal Ab (test code Non-Reactive = Treponemal Ab) *NA*(06/17/22 6:57 AM) [facility]evilleAthmbnzBEUFZVMOHL5633-04-33 11:57:00 Test Item Value Reference Range Interpretation Comments Varicella IgG (test code = Varicella 912.50 IgG) [facility]evilleDnnfiseKOFOKQIUXK6099-92-69 11:57:00 Test Item Value Reference Range Interpretation Comments Mumps IgG (test code = Mumps IgG) no gt [facility] PasoXzmdwkeDIFCWKYEWW9645-58-00 11:57:00 Test Item Value Reference Range Interpretation Comments Rubella IgG (test code = Rubella IgG) no gt [facility] PasoOgxwnnvTHLPRUZBHZ9966-45-95 11:57:00 Test Item Value Reference Range Interpretation Comments Rubeola IgG (test code = Rubeola IgG) 174.00 [facility] CYAGCDY3761-71-26 11:57:00 Test Item Value Reference Range Interpretation Comments Misc Quest (test code = Misc Quest) [facility]PORT [facility] RUXQOLE9528-58-91 11:57:00 Test Item Value Reference Range Interpretation Comments Titer (test code = Titer) 64 1 [facility]Power[facility] QFGBBRK7261-68-35 11:57:00 Test Item Value Reference Range Interpretation Comments Antibody Titered (test code = Anti-A1 Antibody Titered) [facility] VDTPOAL4569-42-27 11:57:00 Test Item Value Reference Range Interpretation Comments Titer2 (test code = Titer2) 32 1 [facility]Power[facility] AWNQJOO6413-86-72 11:57:00 Test Item Value Reference Range Interpretation Comments Antibody Titered2 (test code = Anti-B Antibody Titered2) [facility] KUSQLYY2498-51-85 11:57:00 Test Item Value Reference Range Interpretation Comments OP ABORh Int (test code = OP ABORh Int) O POS [facility]woodSc[facility] CIWJCMI8412-07-91 11:57:00 Test Item Value Reference Range Interpretation Comments OP ABSC Gel Interp Negative (06/17/22 6:57 (test code = OP ABSC AM) Gel Interp) [facility]woodPedisvtJOHBZVAVT1574-91-16 11:57:00 Test Item Value Reference Range Interpretation Comments Glucose Lvl (test code = Glucose Lvl) 95 70-99 [place] [address]-04-18 11:57:00 Test Item Value Reference Range Interpretation Comments BUN (test code = BUN) 60 7-22 [place] [address]-04-18 11:57:00 Test Item Value Reference Range Interpretation Comments Creatinine Lvl (test code = Creatinine 6.84 0.50-1.40 Lvl) [place] [address]-04-18 11:57:00 Test Item Value Reference Range Interpretation Comments Sodium Lvl (test code = Sodium Lvl) 141 135-145 [place] [address]-04-18 11:57:00 Test Item Value Reference Range Interpretation Comments Potassium Lvl (test code = Potassium 3.8 3.5-5.1 Lvl) [place] [address]-04-18 11:57:00 Test Item Value Reference Range Interpretation Comments Chloride Lvl (test code = Chloride Lvl) 109 95-109 [place] [address]-04-18 11:57:00 Test Item Value Reference Range Interpretation Comments CO2 (test code = CO2) 24 24-32 [place] [address]-04-18 11:57:00 Test Item Value Reference Range Interpretation Comments Calcium Lvl (test code = Calcium Lvl) 8.6 8.5-10.5 [place] [address]-04-18 11:57:00 Test Item Value Reference Range Interpretation Comments Total Protein (test code = Total 6.6 6.4-8.4 Protein) [place] [address]-04-18 11:57:00 Test Item Value Reference Range Interpretation Comments Albumin Lvl (test code = Albumin Lvl) 3.3 3.5-5.0 [place] [address]-04-18 11:57:00 Test Item Value Reference Range Interpretation Comments ALT (test code = ALT) 11 See_Comment [Auto mated message] The system which ge nerated this result transmit nicko reference range : <=65. The reference range was not used to interpr et this result as adebayo l/abnormal. [address]04-18 11:57:00 Test Item Value Reference Range Interpretation Comments AST (test code = AST) 7 See_Comment [Auto mated message] The system which ge nerated this result transmit nicko reference range : <=37. The reference range was not used to interpr et this result as adebayo l/abnormal. [facility]AzxduujJJEHUMKGV7487-90-88 11:57:00 Test Item Value Reference Range Interpretation Comments Alk Phos (test code = Alk Phos) 48 39-136 [place] 477473-04-18 11:57:00 Test Item Value Reference Range Interpretation Comments Bili Total (test code = Bili Total) 0.4 0.2-1.3 [place] [address]-04-18 11:57:00 Test Item Value Reference Range Interpretation Comments AGAP (test code = AGAP) 11.8 10.0-20.0 [place] [address]-04-18 11:57:00 Test Item Value Reference Range Interpretation Comments B/C Ratio (test code = B/C Ratio) 9 1 6-25 [place] [address]-04-18 11:57:00 Test Item Value Reference Range Interpretation Comments Globulin (test code = Globulin) 3.3 2.7-4.2 [place] [address]-04-18 11:57:00 Test Item Value Reference Range Interpretation Comments A/G Ratio (test code = A/G Ratio) 1.0 1 0.7-1.6 [place] [address]-04-18 11:57:00 Test Item Value Reference Range Interpretation Comments eGFR (test code = eGFR) 8 [facility] CenterYmjntnlBPUVLWDQC2443-99-50 11:57:00 Test Item Value Reference Range Interpretation Comments Bili Total (test code = Bili Total) 0.4 0.2-1.3 [place] [address]-04-18 11:57:00 Test Item Value Reference Range Interpretation Comments Bili Direct (test code 0.1 See_Comment [Aut omated message] The = Bili Direct) system which generated this result tra nsmitted reference range : <=0.3. The reference r carlos was not used to int erpret this result as adebayo l/abnormal. [place] 477473-04-18 11:57:00 Test Item Value Reference Range Interpretation Comments Bili Indirect (test 0.3 See_Comment [Automa nicko message] The code = Bili Indirect) system which generated this result tra nsmitted reference range : <=1.0. The reference r carlos was not used to int erpret this result as normal/abnormal . [facility]WciepqiPWPWUHEZC7893-09-51 11:57:00 Test Item Value Reference Range Interpretation Comments C-Peptide (test code = C-Peptide) 10.96 0.80-3.85 [facility] CenterXcjgamaKSDQIALPA9332-71-07 11:57:00 Test Item Value Reference Range Interpretation Comments Nicotine Lvl (test code = Nicotine Lvl) no gt [facility] CenterZdhbrebCQWKEZYGV5940-72-23 11:57:00 Test Item Value Reference Range Interpretation Comments Cotinine Lvl (test code = Cotinine Lvl) no gt [facility] CenterOtvfylmIMFJERCCJ7378-44-61 11:57:00 Test Item Value Reference Range Interpretation Comments Hgb A1C (test code = Hgb A1C) 5.3 [facility] CenterEniwwvuQYJRNQGNG2281-64-27 11:57:00 Test Item Value Reference Range Interpretation Comments Trig (test code = Trig) 55 [facility] CenterVtyxbvrFEIMAOCDS3044-16-37 11:57:00 Test Item Value Reference Range Interpretation Comments Chol (test code = Chol) 88 [facility] CenterAdmqimbDMZSGGTMN4863-81-64 11:57:00 Test Item Value Reference Range Interpretation Comments HDL (test code = HDL) 37 [facility] CenterIhgmlfxVPYFXTHSI6896-78-12 11:57:00 Test Item Value Reference Range Interpretation Comments Chol/HDL Ratio (test code = Chol/HDL 2.38 1 4.00-7.30 Ratio) [facility] CenterDcjlyfwVBKAOARZC7023-09-01 11:57:00 Test Item Value Reference Range Interpretation Comments LDL (Calculated) (test code = LDL 40 (Calculated)) [facility] CenterLagxwznMHRJCUKDB8120-32-63 11:57:00 Test Item Value Reference Range Interpretation Comments VLDL (test code = VLDL) 11 1 [facility] CenterQshdprsVSFWLUOXJ6556-89-41 11:57:00 Test Item Value Reference Range Interpretation Comments Phosphorus (test code = Phosphorus) 6.5 2.5-4.5 [facility] CenterHsqocxlNNLKQUAJV7412-84-03 11:57:00 Test Item Value Reference Range Interpretation Comments PSA (test code = PSA) 1.12 [facility] CenterOwokrmsLNWORQCVZ6205-07-72 11:57:00 Test Item Value Reference Range Interpretation Comments LDH (test code = LDH) 137 98-192 [facility]rc[facility]gqEPRDMTXPLY8558-01-96 11:57:00 Test Item Value Reference Range Interpretation Comments Segs (test code = Segs) 74.6 45.0-75.0 [facility] HermannVitamin D 25 wlsqfyj1143-11-97 14:00:00 Test Item Value Reference Range Interpretation Comments VITAMIN 41 ng/mL 30-100 Vitamin D Statu s ? D,25-OH,TOTAL,I ? ? ? 25-OH Vitamin A (test code = D: Deficiency : ? ? 1988-3) ? <20 ng/mLInsufficie ncy: ? 20 - 29 ng/mLOptimal: ? > or = 30 ng/mL For 25-OH Vitamin D testi ng on patients on D2-supplementat ion and patients fo r whom quantitati on of D2 and D3 fractions is required, the QuestAssureD(TM )25- OH VIT D, (D2,D 3), LC/MS/MS is recommended: or darek code 71761 (patients >2yrs).See Note 1 Note 1 For additional information, pl ease refer to http://educatio n.Email Data Source estBlack coin. ideasoft/ faq/SVH779 (Thi s link is being provided for informational/e duca tional purposes only.) RAC (test code Performing = RAC) Organization Information: ? ?Site ID: RGA ? ?Name: [facility] ? ?Address: [address] [place] [phone] ? ?Director: ALBINA LEROY MD AR HealthPSA, total and [id number] 14:00:00 Test Item Value Reference Interpretation Comments Range PSA, TOTAL (test 8.3 ng/mL See_Comment H [Automated message] code = 2857-1) The system [employer] generated this result transmitted ref erence range: < OR = 4 .0. The reference range was not used to int erpret this result as normal/abnormal . PSA, FREE (test 3.2 ng/mL code = 72161-6) PSA, % FREE (test 39 See_Comment PSA(ng/mL ) ? ? ?Free code = 19627-3) PSA(%) ? ? Estimated(x) Probability ? of Cancer(as%)0-2. 5 ?(*) ? Approx. 12.6- 4.0(1) ? 0-27(2) ? 24(3)4.1-10(4) ?0-10 ?56 ? 11-15 ? 28 ? 16-20 ? 20 ? 21-25 ? 16 ? >or = 26 ? 8 >10(+) ? N/A ? >50 References:(1)Alok parsons al.:Urology 60: 469-474 (2002) ? (2)Maribel mendiola t al.:J.Urol 168: 922-925 (2001) ?Free PSA(% ) ? Sensitivity(%) ?Specificity(%) ?< or = 2 5 ?85 ?19 ?< or = 30 ?93 ? 9 ? (3)Maribel et al.:BETITO 277: 4906-4824 (1996 ) ? (4)Maribel et al.:BETITO 279: 0011-7835 (1997 ) (x)These estima wero vary with [...] ofdisea se. [Automated mess age] The system SezWho generated this result transmitted ref erence range: >25 % (c alc). The reference r carlos was not used to interpret this result as normal/abnor mal. RAC (test code = Performing RAC) Organization Information: ? ?Site ID: IG ? ?Name: [facility] ? ?Address: [address] [place], [place] [address], [place] [address] ? ?Director: ALBINA LEROY MD Lab Interpretation Abnormal (test code = 19893-2) [facility] HealthTestosterone, free, utkoo1796-80-01 14:00:00 Test Item Value Reference Interpretation Comments Range TESTOSTERONE, 141 ng/dL 250-1100 L Men with clini get TOTAL, MS (test significant hypogonadal code = 2986-8) symptoms and testosterone valuesrepeatedl y in the range of the 20 0-300 ng/dL or less, may be nefit fromtestosteron e treatment after adequate risk and benefits counse ling. For additional info rmation, please refer tohttps://educa tion.[employer].ideasoft/fa q/WZN230(This link is being p rovided for informational/e ducational purposes only.) (Note) This test was develo ped and its analytical performancechar acteristics have been deter mined by [employer]. It h as notbeen cleared or appr eduardo by the FDA. This assay has been validatedpursua nt to the CLIA regulation s and is used for clinical pu rposes. TESTOSTERONE, 25.4 pg/mL 35.0-155.0 L (Note)This wero t was FREE (test code = developed and its analytical 2991-8) performance mendez racteristics have been deter mined by [employer]. It h as not been cleared or appr eduardo by the FDA. This assay has been validated pursu ant to the CLIA regulation s and is used for clinical pu rposes. MDFmed sxfuuc39 01 [facility] [address] [place] [address] [phone] 00Bakari Donovan MD REPO RT COMMENT:FASTING :NO RAC (test code = Performing RAC) Organization Information: ? ?Site ID: [id number] ? ?Name: [facility] ? ?Address: [address] [place] [address] [place] [phone] ? ?Director: BAKARI DONOVAN MD Lab Abnormal Interpretation (test code = 44497-6) [facility] [id number] 06:00:00 Test Item Value Reference Range Interpretation Comments CULTURE, URINE, SEE NOTE ?CULTURE, U RINE, ROUTINE (test ROUTINE ? ?Rock ro code = Number: ? ? [id number]) ?[id number] ?Test Status: ? ? ? Final ?Specimen Source: ? Urine ?Specimen Quality: ?Adequate ?Result: ?No Growth RAC (test code = Performing RAC) Organization Information: ? ?Site ID: RGA ? ?Name: [facility] ? ?Address: [address] [place] [phone] ? ?Director: ALBINA LEROY MD [facility] HealthTestosterone, free, [id number] 06:00:00 Test Item Value Reference Range Interpretation Comments TESTOSTERONE, NOT DONE ng/dL TEST NOT PERFO RMED TOTAL, MS Duplicate test. (test code = 2986-8) RAC (test code Performing = RAC) Organization Information: ? ?Site ID: [id number] ? ?Name: [facility] ? ?Address: [address] [place] [address] [place] [phone] ? ?Director: BAKARI DONOVAN MD AR HealthPSA, total and [id number] 06:00:00 Test Item Value Reference Range Interpretation Comments PSA, TOTAL NOT DONE ng/mL TEST NOT PERFOR MED No (test code = suitable specim en 2857-1) received.Please review the testrequire ments at testInside.[employer] RAC (test Performing code = RAC) Organization Information: ? ?Site ID: IG ? ?[facility] ? ?Address: [address] [place] [address] ? ?Director: ALBINA LEROY MD [facility] HealthVitamin D 25 trqbdge8856-74-91 06:00:00 Test Item Value Reference Range Interpretation Comments VITAMIN NOT DONE ng/mL TEST NOT D,25-OH,TOTAL,IA PERFORMED (test code = Duplicate test. 1988-04) RAC (test code = Performing RAC) Organization Information: ? ?Site ID: RGA ? ?Name: [facility] ? ?Address: [address] [place] [phone] ? ?Director: ALBINA LEROY MD [facility] HealthPOCT urinalysis w/o [id number] 23:16:00 Test Item Value Reference Range Interpretation Comments Color, UA (test code = Yello w 5253811) Clarity, UA (test code Clear = 1292412) Glucose, UA (test code Negative Negative = 1268713) Bilirubin, UA (test Negative Negative code = 1114804) Ketones, UA (test code Negat nargis = 7530390) Spec Grav, UA (test 1.015 1.000-1.030 code = 2600885) Blood, UA (test code = Small 5061051) pH, UA (test code = 7.0 5.0-8.5 3240581) Protein, UA (test code 100(2+)mg/dL Negative, Trace, A = 6752521) 200(+2)mg/dL, 15/mg/dL Urobilinogen, UA (test 0.2 See_Comment [Aut omated code = 8080033) message] The system which generated this result transmit nicko reference range : 0.2. The refere nce range was not u sed to interpret th is result as normal/abnormal . Leukocytes, UA (test Small Negative, Trace A code = 2506654) Nitrite, UA (test code Negative Negative, Trace = 8986778) Appearance, Fluid Clear (test code = 9335-1) Lab Interpretation Abnormal (test code = 27296-7) [facility] HealthURINALYSIS WITH [id number] 22:24:00 Test Item Value Reference Range Interpretation Comments Color (test code = Lt. Yellow UCOLR) Clarity (test code Clear = UCLAR) Glucose (test code NEGATIVE NEGATIVE N = UGLUC) Bilirubin (test NEGATIVE NEGATIVE N code = UBILI) Ketones (test code NEGATIVE NEGATIVE N = UKET) Specific [place] 1.010 1.005-1.030 A (test code = USPGR) [...] = Amorphous URCRYS) Phosphates STLMLCT HEAD W/O [id number] 21:17:42 [facility]Name: ZENIA JIMENES : 1955 Sex: MDISCUSSION:CT [...] 04/29/2022 21:13Dictated By: SHREE WRIGHTDate: 04/29/2022 21:17 [id number] 21:12:00 Test Item Value Reference Range Interpretation [...] ( 4 - SerumAlbumin)] EGFR if 5 [place] (test code mL/min/1.73m\\ = EGFRAA) S\\2 EGFR if Non- 4 Estimate d Glomerular [place] (test code mL/min/1.73m\\ Filtrat ion Rate (eGFR) [...] TSH) 7.72 mIU/L 0.47-4.68 H STLMLHIGH SENSITIVITY [id number] 21:01:00 Test Item Value Reference Range Interpretation [...] equal to 500 ng/L. STLMLCBC WITH AUTO [id number] 20:49:00 Test Item Value Reference Range Interpretation [...] = 0.3 % 0.0-0.4 IG%) STLMLURINALYSIS WITH [id number] 21:33:00 Test Item Value Reference Range Interpretation Comments Color (test code = Yellow UCOLR) Clarity (test code = Clear UCLAR) Glucose (test code = 100 NEGATIVE A UGLUC) Bilirubin (test code = NEGATIVE NEGATIVE N UBILI) Ketones (test code = NEGATIVE NEGATIVE N UKET) Specific [place] (test 1.010 1.005-1.030 A code = USPGR) Blood (test code = MODERATE NEGATIVE A UBLD) PH (test code = UPH) 7.0 4.5-8.0 A Protein (test code = 100 NEGATIVE A UPROT) Urobilinogen (test 0.2 See_Comment N [Automat ed message] code = U UROB) The system Ubic[employer] generated this result transmit nicko reference range [...] Seen None Seen N = UR MISC) STLCT ABDOMEN/PELVIS W/O [id number] 20:40:44 [facility]Name: ZENIA JIMENES : 1955 Sex: MEXAM: CT ABDOMEN/PELVIS W/O CONTRASTHISTORY: [id number]: Abdominal pain.TECHNIQUE: Axial CT images acquired through [...] (test code = LIPA) 90 U/L 8-223 [id number] 20:16:00 Test Item Value Reference Range Interpretation [...] ( 4 - SerumAlbumin)] EGFR if 7 [place] (test code mL/min/1.73m\\ = EGFRAA) S\\2 EGFR if Non- 6 Estimate d Glomerular [place] (test code mL/min/1.73m\\ Filtrat ion Rate (eGFR) [...] c hronic kidney failure. STLMLCBC WITH AUTO [id number] 19:50:00 Test Item Value Reference Range Interpretation [...] 0.3 % 0.0-0.4 IG%) STLMLPOCT urinalysis w/o [id number] 22:11:00 Test Item Value Reference Range Interpretation Comments Color, UA (test code = Yello w 3272743) Clarity, UA (test code Clear = 6175203) Glucose, UA (test code 100 mg/dL Negative A = 0877590) Bilirubin, UA (test Negative Negative code = 0163937) Ketones, UA (test code Negat nargis = 6549920) Spec Grav, UA (test 1.000-1.030 code = 6105645) Blood, UA (test code = Trace 8225226) pH, UA (test code = 5.0-8.5 7093310) Protein, UA (test code 30(+1) mg/dL Negative, Trace, A = 5676303) 200(+2)mg/dL, 15/mg/dL Urobilinogen, UA (test See_Comment [Aut omated code = 1696465) message] The system which generated this result transmit nicko reference range : 0.2. The refere nce range was not u sed to interpret th is result as normal/abnormal . Leukocytes, UA (test Trace Negative, Trace code = 4793094) Nitrite, UA (test code Negative Negative, Trace = 5370542) Appearance, Fluid Clear (test code = 9335-1) Lab Interpretation Abnormal (test code = 96177-7) [address]akdsvQZSIFYVGLN8198-29-76 15:33:00 Test Item Value Reference Range Interpretation Comments T-Spot.TB (test code = T-Spot.TB) Negative [address]05-03 15:33:00 Test Item Value Reference Range Interpretation Comments T-Spot Pnl A Neg Ctrl Corrected (test 0 1 code = T-Spot Pnl A Neg Ctrl Corrected) [address]05-03 15:33:00 Test Item Value Reference Range Interpretation Comments T-Spot Pnl B Neg Ctrl Corrected (test 0 1 code = T-Spot Pnl B Neg Ctrl Corrected) [address]05-03 15:33:00 Test Item Value Reference Range Interpretation Comments T-Spot Neg Ctrl (test code = T-Spot Passed Neg Ctrl) [address]05-03 15:33:00 Test Item Value Reference Range Interpretation Comments T-Spot Pos Ctrl (test code = T-Spot Passed Pos Ctrl) [address]05-03 15:33:00 Test Item Value Reference Range Interpretation Comments T-Spot.TB (test code = T-Spot.TB) Negative [address]05-03 15:33:00 Test Item Value Reference Range Interpretation Comments T-Spot Pnl A Neg Ctrl Corrected (test 0 1 code = T-Spot Pnl A Neg Ctrl Corrected) [address]05-03 15:33:00 Test Item Value Reference Range Interpretation Comments T-Spot Pnl B Neg Ctrl Corrected (test 0 1 code = T-Spot Pnl B Neg Ctrl Corrected) [address]05-03 15:33:00 Test Item Value Reference Range Interpretation Comments T-Spot Neg Ctrl (test code = T-Spot Passed Neg Ctrl) [address]05-03 15:33:00 Test Item Value Reference Range Interpretation Comments T-Spot Pos Ctrl (test code = T-Spot Passed Pos Ctrl) [address]05-03 15:33:00 Test Item Value Reference Range Interpretation Comments T-Spot.TB (test code = T-Spot.TB) Negative [address]05-03 15:33:00 Test Item Value Reference Range Interpretation Comments T-Spot Pnl A Neg Ctrl Corrected (test 0 1 code = T-Spot Pnl A Neg Ctrl Corrected) [id number] 15:33:00 Test Item Value Reference Range Interpretation Comments T-Spot Pnl B Neg Ctrl Corrected (test 0 1 code = T-Spot Pnl B Neg Ctrl Corrected) [facility]evilleVwahhxrIIKWGANICU2965-25-14 15:33:00 Test Item Value Reference Range Interpretation Comments T-Spot Neg Ctrl (test code = T-Spot Passed Neg Ctrl) [facility]evilleTmqyrawURCQCAFDEI8582-94-63 15:33:00 Test Item Value Reference Range Interpretation Comments T-Spot Pos Ctrl (test code = T-Spot Passed Pos Ctrl) [facility] pathology [id number] 13:05:21 Test Item Value Reference Range Interpretation Comments Case number (test [id number] code = 6164217) Surgical pathology See link below for PDF report (test code = Lab Report 2255) Result status (test This is Supplemental code = 8815185) Report for [id number] pathology [id number] 13:05:21 Test Item Value Reference Range Interpretation Comments Case number (test [id number] code = 2875326) Surgical pathology See link below for PDF report (test code = Lab Report 2255) Result status (test This is Supplemental code = 8432126) Report for [id number] pathology [id number] 13:05:21 Test Item Value Reference Range Interpretation Comments Case number (test [id number] code = 8600141) Surgical pathology See link below for PDF report (test code = Lab Report 2255) Result status (test This is Supplemental code = 3870381) Report for [id number] pathology [id number] 13:05:21 Test Item Value Reference Range Interpretation Comments Case number (test [id number] code = 1814746) Surgical pathology See link below for PDF report (test code = Lab Report 2255) Result status (test This is Supplemental code = 8403337) Report for [id number] pathology [id number] 13:05:21 Test Item Value Reference Range Interpretation Comments Case number (test [id number] code = 6629629) Surgical pathology See link below for PDF report (test code = Lab Report 2255) Result status (test This is Supplemental code = 3384488) Report for [id number] pathology [id number] 13:05:21 Test Item Value Reference Range Interpretation Comments Case number (test [id number] code = 6154485) Surgical pathology See link below for PDF report (test code = Lab Report 2255) Result status (test This is Supplemental code = 1339251) Report for [id number] [place] [address] pathology [id number] 13:05:21 Test Item Value Reference Range Interpretation Comments Case number (test [id number] code = 3517197) Surgical pathology See link below for PDF report (test code = Lab Report 2255) Result status (test This is Supplemental code = 5533258) Report for [id number] [place] [address] pathology [id number] 13:05:21 Test Item Value Reference Range Interpretation Comments Case number (test [id number] code = 9048700) Surgical pathology See link below for PDF report (test code = Lab Report 2255) Result status (test This is Supplemental code = 8104059) Report for [id number] [place] [address] pathology [id number] 13:05:21 Test Item Value Reference Range Interpretation Comments Case number (test [id number] code = 2680283) Surgical pathology See link below for PDF report (test code = Lab Report 2255) Result status (test This is Supplemental code = 7056076) Report for [id number] [place] [address] pathology [id number] 13:05:21 Test Item Value Reference Range Interpretation Comments Case number (test [id number] code = 8668607) Surgical pathology See link below for PDF report (test code = Lab Report 2255) Result status (test This is Supplemental code = 7269675) Report for [id number] [place], [place] [address] [id number] 14:19:00 Test Item Value Reference Range Interpretation Comments Anaerobic No anaerobic Specimen culture isolate organisms InformationS pecimen (test code = isolated. Source: Periton eal 99163-6) fluidSpecimen S ite: Stomach Scientologist [facility] [id number] 14:19:00 Test Item Value Reference Range Interpretation Comments Anaerobic No anaerobic Specimen culture isolate organisms InformationS pecimen (test code = isolated. Source: Periton eal 26073-6) fluidSpecimen S ite: [facility] [id number] 14:19:00 Test Item Value Reference Range Interpretation Comments Anaerobic No anaerobic Specimen culture isolate organisms InformationS pecimen (test code = isolated. Source: Periton eal 04650-3) fluidSpecimen S ite: [employer] Scient[employer] [facility] [id number] 14:19:00 Test Item Value Reference Range Interpretation Comments Anaerobic No anaerobic Specimen culture isolate organisms InformationS pecimen (test code = isolated. Source: Periton eal 34157-4) fluidSpecimen S ite: Stomach [facility] [id number] 14:19:00 Test Item Value Reference Range Interpretation Comments Anaerobic No anaerobic Specimen culture isolate organisms InformationS pecimen (test code = isolated. Source: Periton eal 80805-1) fluidSpecimen S ite: Stomach [facility] amuwkqf2633-17-97 14:19:00 Test Item Value Reference Range Interpretation Comments Anaerobic No anaerobic Specimen culture isolate organisms InformationS pecimen (test code = isolated. Source: Periton eal 40137-7) fluidSpecimen S ite: Stomach [facility] [id number] 14:19:00 Test Item Value Reference Range Interpretation Comments Anaerobic No anaerobic Specimen culture isolate organisms InformationS pecimen (test code = isolated. Source: Periton eal 33037-3) fluidSpecimen S ite: [facility] ljxmzxt0006-97-00 14:19:00 Test Item Value Reference Range Interpretation Comments Anaerobic No anaerobic Specimen culture isolate organisms InformationS pecimen (test code = isolated. Source: Periton eal 57526-9) fluidSpecimen S ite: [facility] [id number] 14:19:00 Test Item Value Reference Range Interpretation Comments Anaerobic No anaerobic Specimen culture isolate organisms InformationS pecimen (test code = isolated. Source: Periton eal 96777-7) fluidSpecimen S ite: Stomach [facility] HospitalAna[facility] nvhtweb3688-52-98 14:19:00 Test Item Value Reference Range Interpretation Comments Anaerobic No anaerobic Specimen culture isolate organisms InformationS pecimen (test code = isolated. Source: Periton eal 55328-5) fluidSpecimen S ite: [facility] [id number] 18:24:00 Test Item Value Reference Range Interpretation Comments Aerobic culture No growth Specimen isolate (test after 3 days. InformationSp ecimen code = 75464-9) Source: Cris toneal fluidSpecimen S ite: [facility] [id number] 18:24:00 Test Item Value Reference Range Interpretation Comments Aerobic culture No growth Specimen isolate (test after 3 days. InformationSp ecimen code = 55555-8) Source: Cris toneal fluidSpecimen S ite: [facility] [id number] 18:24:00 Test Item Value Reference Range Interpretation Comments Aerobic culture No growth Specimen isolate (test after 3 days. InformationSp ecimen code = 25771-0) Source: Cris toneal fluidSpecimen S ite: [facility] [id number] 18:24:00 Test Item Value Reference Range Interpretation Comments Aerobic culture No growth Specimen isolate (test after 3 days. InformationSp ecimen code = 53212-7) Source: Cris toneal fluidSpecimen S ite: [facility] gtdkscq2403-61-17 18:24:00 Test Item Value Reference Range Interpretation Comments Aerobic culture No growth Specimen isolate (test after 3 days. InformationSp ecimen code = 27910-1) Source: Cris toneal fluidSpecimen S ite: [facility] [id number] 18:24:00 Test Item Value Reference Range Interpretation Comments Aerobic culture No growth Specimen isolate (test after 3 days. InformationSp ecimen code = 59191-6) Source: Cris toneal fluidSpecimen S ite: [facility] [id number] 18:24:00 Test Item Value Reference Range Interpretation Comments Aerobic culture No growth Specimen isolate (test after 3 days. InformationSp ecimen code = 40547-0) Source: Cris toneal fluidSpecimen S ite: [facility] [id number] 18:24:00 Test Item Value Reference Range Interpretation Comments Aerobic culture No growth Specimen isolate (test after 3 days. InformationSp ecimen code = 98477-2) Source: Cris toneal fluidSpecimen S ite: [facility] [id number] 18:24:00 Test Item Value Reference Range Interpretation Comments Aerobic culture No growth Specimen isolate (test after 3 days. InformationSp ecimen code = 83726-4) Source: Cris toneal fluidSpecimen S ite: [facility] [id number] 18:24:00 Test Item Value Reference Range Interpretation Comments Aerobic culture No growth Specimen isolate (test after 3 days. InformationSp ecimen code = 23358-4) Source: Cris toneal fluidSpecimen S ite: Stomach Scientologist HospitalECG 12 [id number] 15:13:45 Test Item Value Reference Range Interpretation Comments Ventricular rate (test code = 253) Atrial rate (test code = 255) [place] interval (test code = 266) QRSD interval [...] wave inversion now evident in Lateral leads- [address]2022-03-23 15:13:45 Test Item Value Reference Range Interpretation Comments Ventricular rate (test code = 253) Atrial rate (test code = 255) [place] interval (test code = 266) QRSD interval [...] wave inversion now evident in Lateral leads- [address]2022-03-23 15:13:45 Test Item Value Reference Range Interpretation Comments Ventricular rate (test code = 253) Atrial rate (test code = 255) [place] interval (test code = 266) QRSD interval [...] wave inversion now evident in Lateral leads- [address]2022-03-23 15:13:45 Test Item Value Reference Range Interpretation Comments Ventricular rate (test 86 code = 253) Atrial rate (test code 86 = 255) [place] interval (test code 240 = 266) QRSD [...] wave inversion now evident in Lateral leads- [address]2022-03-23 15:13:45 Test Item Value Reference Range Interpretation Comments Ventricular rate (test 86 code = 253) Atrial rate (test code 86 = 255) [place] interval (test code 240 = 266) QRSD [...] wave inversion now evident in Lateral leads- [address]2022-03-23 15:13:45 Test Item Value Reference Range Interpretation Comments Ventricular rate (test 86 code = 253) Atrial rate (test code 86 = 255) [place] interval (test code 240 = 266) QRSD [...] wave inversion now evident in Lateral leads- [address]2022-03-23 15:13:45 Test Item Value Reference Range Interpretation Comments Ventricular rate (test 86 code = 253) Atrial rate (test code 86 = 255) [place] interval (test code 240 = 266) QRSD [...] wave inversion now evident in Lateral leads- [address]2022-03-23 15:13:45 Test Item Value Reference Range Interpretation Comments Ventricular rate (test 86 code = 253) Atrial rate (test code 86 = 255) [place] interval (test code 240 = 266) QRSD [...] wave inversion now evident in Lateral leads- [place] [address] [id number] 15:13:45 Test Item Value Reference Range Interpretation Comments Ventricular rate (test 86 code = 253) Atrial rate (test code 86 = 255) [place] interval (test code 240 = 266) QRSD [...] wave inversion now evident in Lateral leads- [place] [address] [id number] 15:13:45 Test Item Value Reference Range Interpretation Comments Ventricular rate (test 86 code = 253) Atrial rate (test code 86 = 255) [place] interval (test code 240 = 266) QRSD [...] wave inversion now evident in Lateral leads- [facility]2022-03-23 12:13:00 Test Item Value Reference Range Interpretation Comments Gram stain No WBC's or Specimen isolate (test organisms seen. Information Specimen code = 1469) Source: Periton eal fluidSpecimen S ite: [facility] [id number] 12:13:00 Test Item Value Reference Range Interpretation Comments Gram stain No WBC's or Specimen isolate (test organisms seen. Information Specimen code = 1469) Source: Periton eal fluidSpecimen S ite: Stomach Scientologist [facility] [id number] 12:13:00 Test Item Value Reference Range Interpretation Comments Gram stain No WBC's or Specimen isolate (test organisms seen. Information Specimen code = 1469) Source: Periton eal fluidSpecimen S ite: [facility] [id number] 12:13:00 Test Item Value Reference Range Interpretation Comments Gram stain No WBC's or Specimen isolate (test organisms seen. Information Specimen code = 1469) Source: Periton eal fluidSpecimen S ite: Stomach [facility] [id number] 12:13:00 Test Item Value Reference Range Interpretation Comments Gram stain No WBC's or Specimen isolate (test organisms seen. Information Specimen code = 1469) Source: Periton eal fluidSpecimen S ite: [facility] [id number] 12:13:00 Test Item Value Reference Range Interpretation Comments Gram stain No WBC's or Specimen isolate (test organisms seen. Information Specimen code = 1469) Source: Periton eal fluidSpecimen S ite: Stomach [facility] [id number] 12:13:00 Test Item Value Reference Range Interpretation Comments Gram stain No WBC's or Specimen isolate (test organisms seen. Information Specimen code = 1469) Source: Periton eal fluidSpecimen S ite: Stomach Scientologist [facility] [id number] 12:13:00 Test Item Value Reference Range Interpretation Comments Gram stain No WBC's or Specimen isolate (test organisms seen. Information Specimen code = 1469) Source: Periton eal fluidSpecimen S ite: Stomach Scientologist [facility] [id number] 12:13:00 Test Item Value Reference Range Interpretation Comments Gram stain No WBC's or Specimen isolate (test organisms seen. Information Specimen code = 1469) Source: Periton eal fluidSpecimen S ite: [facility] [id number] 12:13:00 Test Item Value Reference Range Interpretation Comments Gram stain No WBC's or Specimen isolate (test organisms seen. Information Specimen code = 1469) Source: Periton eal fluidSpecimen S ite: Stomach [facility] [id number] 02:38:00 Test Item Value Reference Range Interpretation Comments Urine culture (test SEE COMMENT Bacteriu kayden screen code = 6148039) negative. [facility]2022-03-22 02:38:00 Test Item Value Reference Range Interpretation Comments Urine culture (test SEE COMMENT Bacteriu kayden screen code = 9055084) negative. [facility]2022-03-22 02:38:00 Test Item Value Reference Range Interpretation Comments Urine culture (test SEE COMMENT Bacteriu kayden screen code = 8859823) negative. [facility]2022-03-22 02:38:00 Test Item Value Reference Range Interpretation Comments Urine culture (test SEE COMMENT Bacteriu kayden screen code = 6677073) negative. [facility]2022-03-22 02:38:00 Test Item Value Reference Range Interpretation Comments Urine culture (test SEE COMMENT Bacteriu kayden screen code = 5583514) negative. [facility]2022-03-22 02:38:00 Test Item Value Reference Range Interpretation Comments Urine culture (test SEE COMMENT Bacteriu kayden screen code = 9021337) negative. [facility]2022-03-22 02:38:00 Test Item Value Reference Range Interpretation Comments Urine culture (test SEE COMMENT Bacteriu kayden screen code = 1742199) negative. [facility]2022-03-22 02:38:00 Test Item Value Reference Range Interpretation Comments Urine culture (test SEE COMMENT Bacteriu kayden screen code = 0608763) negative. [facility]2022-03-22 02:38:00 Test Item Value Reference Range Interpretation Comments Urine culture (test SEE COMMENT Bacteriu kayden screen code = 8938128) negative. [facility]2022-03-22 02:38:00 Test Item Value Reference Range Interpretation Comments Urine culture (test SEE COMMENT Bacteriu kayden screen code = 0573210) negative. [facility] [id number] 18:22:00 Test Item Value Reference Range Interpretation Comments Ferritin Lvl (test code = Ferritin Lvl) 498 22-779 [place] 327862-02-07 18:22:00 Test Item Value Reference Range Interpretation Comments Iron (test code = Iron) 84 [place] 327862-02-07 18:22:00 Test Item Value Reference Range Interpretation Comments TIBC (test code = TIBC) 276 [place] 327862-02-07 18:22:00 Test Item Value Reference Range Interpretation Comments % Satur Fe (test code = % Satur Fe) 30 [place] [id number] 18:22:00 Test Item Value Reference Range Interpretation Comments Creatinine Lvl (test code = Creatinine 6.07 0.50-1.40 Lvl) [place] 498822-02-07 18:22:00 Test Item Value Reference Range Interpretation Comments eGFR (test code = eGFR) 9 [place] 498822-02-07 18:22:00 Test Item Value Reference Range Interpretation Comments Glucose Lvl (test code = Glucose Lvl) 75 70-99 [place] 498822-02-07 18:22:00 Test Item Value Reference Range Interpretation Comments BUN (test code = BUN) 39 7-22 [place] 498822-02-07 18:22:00 Test Item Value Reference Range Interpretation Comments Creatinine Lvl (test code = Creatinine 6.00 0.50-1.40 Lvl) [place] 498822-02-07 18:22:00 Test Item Value Reference Range Interpretation Comments Sodium Lvl (test code = Sodium Lvl) 139 135-145 [place] 498822-02-07 18:22:00 Test Item Value Reference Range Interpretation Comments Potassium Lvl (test code = Potassium 3.9 3.5-5.1 Lvl) [place] 498822-02-07 18:22:00 Test Item Value Reference Range Interpretation Comments Chloride Lvl (test code = Chloride Lvl) 104 95-109 [place] 498822-02-07 18:22:00 Test Item Value Reference Range Interpretation Comments CO2 (test code = CO2) 29 24-32 [place] 498822-02-07 18:22:00 Test Item Value Reference Range Interpretation Comments Calcium Lvl (test code = Calcium Lvl) 9.8 8.5-10.5 [place] 498822-02-07 18:22:00 Test Item Value Reference Range Interpretation Comments Total Protein (test code = Total 7.3 6.4-8.4 Protein) [facility] [id number] 18:22:00 Test Item Value Reference Range Interpretation Comments Albumin Lvl (test code = Albumin Lvl) 3.5 3.5-5.0 [facility] [id number] 18:22:00 Test Item Value Reference Range Interpretation Comments ALT (test code = ALT) 20 See_Comment [Auto mated message] The system which ge nerated this result transmit nicko reference range : <=65. The reference range was not used to interpr et this result as adebayo l/abnormal. [facility] [employer] [id number] 18:22:00 Test Item Value Reference Range Interpretation Comments AST (test code = AST) 9 See_Comment [Auto mated message] The system which ge nerated this result transmit nicko reference range : <=37. The reference range was not used to interpr et this result as adebayo l/abnormal. [facility] [id number] 18:22:00 Test Item Value Reference Range Interpretation Comments Alk Phos (test code = Alk Phos) 67 39-136 [facility] [employer] [id number] 18:22:00 Test Item Value Reference Range Interpretation Comments Bili Total (test code = Bili Total) 0.4 0.2-1.3 [facility] [id number] 18:22:00 Test Item Value Reference Range Interpretation Comments AGAP (test code = AGAP) 9.9 10.0-20.0 [facility] [id number] 18:22:00 Test Item Value Reference Range Interpretation Comments B/C Ratio (test code = B/C Ratio) 6 1 6-25 [facility] [id number] 18:22:00 Test Item Value Reference Range Interpretation Comments Globulin (test code = Globulin) 3.8 2.7-4.2 [facility] [id number] 18:22:00 Test Item Value Reference Range Interpretation Comments A/G Ratio (test code = A/G Ratio) 0.9 1 0.7-1.6 [facility] [id number] 18:22:00 Test Item Value Reference Range Interpretation Comments eGFR (test code = eGFR) 9 [facility] [id number] 18:22:00 Test Item Value Reference Range Interpretation Comments Magnesium Lvl (test code = Magnesium 1.6 1.8-2.4 Lvl) [facility] [id number] 18:22:00 Test Item Value Reference Range Interpretation Comments Phosphorus (test code = Phosphorus) 4.7 2.5-4.5 [facility] [id number] 18:22:00 Test Item Value Reference Range Interpretation Comments Uric Acid (test code = Uric Acid) 4.9 3.8-8.0 [facility] [id number] 18:22:00 Test Item Value Reference Range Interpretation Comments Vitamin D, 25-OH, Total (test code = 29 Vitamin D, 25-OH, Total) [facility] TechnologiesDR[facility] [id number] 18:22:00 Test Item Value Reference Range Interpretation Comments Opiate Qnt (test code = Opiate Qnt) Negative [facility] TechnologiesDR[facility] [id number] 18:22:00 Test Item Value Reference Range Interpretation Comments Kaitlin Scr (test code = Kaitlin Scr) Negative [facility] TechnologiesDR[facility] [id number] 18:22:00 Test Item Value Reference Range Interpretation Comments Cannab Scr (test code = Cannab Scr) Negative [facility] [id number] 18:22:00 Test Item Value Reference Range Interpretation Comments Methadone Scr (test code = Methadone Negative Scr) [facility] [id number] 18:22:00 Test Item Value Reference Range Interpretation Comments Cocaine Scr (test code = Cocaine Negative Scr) [facility] TechnologiesDR[facility] [id number] 18:22:00 Test Item Value Reference Range Interpretation Comments Benzodiaz Scr (test code = Benzodiaz Negative Scr) [facility] TechnologiesDR[facility] [id number] 18:22:00 Test Item Value Reference Range Interpretation Comments Amph Scr (test code = Amph Scr) Negative [facility] TechnologiesDR[facility] [id number] 18:22:00 Test Item Value Reference Range Interpretation Comments Opiate Scr (test code = Opiate Scr) Positive [facility] [id number] 18:22:00 Test Item Value Reference Range Interpretation Comments 6-Acetylmor Scr (test code = Negative 6-Acetylmor Scr) [facility]2022-02-07 18:22:00 Test Item Value Reference Range Interpretation Comments Cryptococcal Ag (test Negative (04/08/21 code = Cryptococcal Ag) 12:22 PM) [facility]2022-02-07 18:22:00 Test Item Value Reference Range Interpretation Comments Histo Yeast Ab (test code = Histo Yeast 1:16 Ab) [facility]2022-02-07 18:22:00 Test Item Value Reference Range Interpretation Comments Histo mycel Ab (test code = Histo mycel 1:8 Ab) [facility]2022-02-07 18:22:00 Test Item Value Reference Range Interpretation Comments Blastomyces Ab (test code = NEGATIVE Blastomyces Ab) [facility]2022-02-07 18:22:00 Test Item Value Reference Range Interpretation Comments Coccid Ab IgM (test code = Coccid Ab NEGATIVE IgM) [facility]2022-02-07 18:22:00 Test Item Value Reference Range Interpretation Comments Coccid Ab IgG (test code = Coccid Ab NEGATIVE IgG) [id number] 18:22:00 Test Item Value Reference Range Interpretation Comments Segs (test code = Segs) 69.3 45.0-75.0 [facility] H[id number] 18:22:00 Test Item Value Reference Range Interpretation Comments Lymphocytes (test code = Lymphocytes) 22.3 20.0-40.0 [facility] [id number] 18:22:00 Test Item Value Reference Range Interpretation Comments Monocytes (test code = Monocytes) 4.8 2.0-12.0 [place] 352162-02-07 18:22:00 Test Item Value Reference Range Interpretation Comments Eosinophils (test code = 3.0 See_Comment [A utomated message] The Eosinophils) system which ge nerated this result tra nsmitted reference range : <=4.0. The reference r carlos was not used to int erpret this result as normal/abnormal . [facility] H[id number] 18:22:00 Test Item Value Reference Range Interpretation Comments Basophils (test code = 0.6 See_Comment [Aut omated message] The Basophils) system which ge nerated this result tra nsmitted reference range : <=1.0. The reference r carlos was not used to int erpret this result as normal/abnormal . [facility] Hos[id number] 18:22:00 Test Item Value Reference Range Interpretation Comments Neutrophils # (test code = Neutrophils 5.6 1.5-8.1 #) [facility] H[id number] 18:22:00 Test Item Value Reference Range Interpretation Comments Lymphocytes # (test code = Lymphocytes 1.8 1.0-5.5 #) [facility] H[id number] 18:22:00 Test Item Value Reference Range Interpretation Comments Monocytes # (test code 0.4 See_Comment [Aut omated message] The = Monocytes #) system which generated this result tra nsmitted reference range : <=0.8. The reference r carlos was not used to int erpret this result as normal/abnormal . [place] 352162-02-07 18:22:00 Test Item Value Reference Range Interpretation Comments Eosinophils # (test code 0.2 See_Comment [A utomated message] The = Eosinophils #) system whic h generated this result tra nsmitted reference range : <=0.5. The reference r carlos was not used to int erpret this result as normal/abnormal . [facility] Hos[id number] 18:22:00 Test Item Value Reference Range Interpretation Comments PT (test code = PT) 12.6 s 12.0-14.7 [place] 352162-02-07 18:22:00 Test Item Value Reference Range Interpretation Comments INR (test code = INR) 0.95 1 0.85-1.17 [place] 352162-02-07 18:22:00 Test Item Value Reference Range Interpretation Comments PTT (test code = PTT) 32.2 s 22.9-35.8 [place] [address]-02-07 18:22:00 Test Item Value Reference Range Interpretation Comments TEG Interp (test Thrombelastograph results code = TEG show increased values of Interp) both Angle Alpha and MA. These findings are suggestive of platelet hypercoagulation. CPT:46155 [place] 352162-02-07 18:22:00 Test Item Value Reference Range Interpretation Comments R-time (test code = R-time) 6.0 min 5.0-10.0 [place] 352162-02-07 18:22:00 Test Item Value Reference Range Interpretation Comments K-time (test code = K-time) 1.1 min 1.0-3.0 [place] [address]-02-07 18:22:00 Test Item Value Reference Range Interpretation Comments Angle (test code = Angle) 74.1 degrees 53.0-72.0 [place] 352162-02-07 18:22:00 Test Item Value Reference Range Interpretation Comments Max Amp (test code = Max Amp) 73.3 mm 50.0-70.0 [place] 352162-02-07 18:22:00 Test Item Value Reference Range Interpretation Comments G-value (test code = G-value) 13.7 4.5-11.0 [place] [address]-02-07 18:22:00 Test Item Value Reference Range Interpretation Comments Ly30 (test code = 0.0 See_Comment [Automate d message] The Ly30) system which ge nerated this result transmit nicko reference range : <=7.5. The reference range was not used to interpr et this result as adebayo l/abnormal. [place] [address]-02-07 18:22:00 Test Item Value Reference Range Interpretation Comments Coag Index (test code 2.5 1 See_Comment [Auto mated message] The = Coag Index) system which g enerated this result transmit nicko reference range : <=3.0. The reference range was not used to interpr et this result as adebayo l/abnormal. [place] [address]-02-07 18:22:00 Test Item Value Reference Range Interpretation Comments TEG Data (test code = See Note (04/08/21 12:22 TEG Data) PM) [place] [address]-02-07 18:22:00 Test Item Value Reference Range Interpretation Comments WBC (test code = WBC) 8.0 3.7-10.4 [place] [address]-02-07 18:22:00 Test Item Value Reference Range Interpretation Comments RBC (test code = RBC) 3.87 4.70-6.10 [place] 352162-02-07 18:22:00 Test Item Value Reference Range Interpretation Comments Hgb (test code = Hgb) 12.0 14.0-18.0 [place] 352162-02-07 18:22:00 Test Item Value Reference Range Interpretation Comments Hct (test code = Hct) 37.0 42.0-54.0 [place] 352162-02-07 18:22:00 Test Item Value Reference Range Interpretation Comments MCV (test code = MCV) 95.8 80.0-94.0 [place] 352162-02-07 18:22:00 Test Item Value Reference Range Interpretation Comments MCH (test code = MCH) 31.1 pg 27.0-31.0 [place] 352162-02-07 18:22:00 Test Item Value Reference Range Interpretation Comments MCHC (test code = MCHC) 32.4 32.0-36.0 [place] 352162-02-07 18:22:00 Test Item Value Reference Range Interpretation Comments RDW (test code = RDW) 15.1 11.5-14.5 [place] 352162-02-07 18:22:00 Test Item Value Reference Range Interpretation Comments Platelet (test code = Platelet) 255 133-450 [facility] HospitalZaghhaoIDMURYBMZU9958-26-07 18:22:00 Test Item Value Reference Range Interpretation Comments MPV (test code = MPV) 8.7 7.4-10.4 [facility]evilleUwjvbrtJZUGIPYIQN8182-77-18 18:22:00 Test Item Value Reference Range Interpretation Comments KAREN Ser Pattern A distinct monoclonal (test code = KAREN Ser band is present in the Pattern) IgM izbaella with a corresponding distinct band in the kappa light chain izabella. The polyclonal gamma globulin background is preserved in all lanes. [facility]evilleEtrnaxlKWPEJNKZKA5929-76-48 18:22:00 Test Item Value Reference Range Interpretation [...] and concur with the resident's interpretation. CPT 71625-NW [place] 427542-02-07 18:22:00 Test Item Value Reference Range Interpretation Comments Cystatin C (test code = Cystatin C) 5.38 [facility] BeevilleLrhktncPRYQEBVIZI1716-88-34 18:22:00 Test Item Value Reference Range Interpretation Comments eGFR Cystatin-based (test code = eGFR 8 Cystatin-based) [facility]evilleRuteihpTEFNDHAWJW0173-50-77 18:22:00 Test Item Value Reference Range Interpretation Comments Albumin % (test code = Albumin %) 54.2 55.8-66.1 [place] 427542-02-07 18:22:00 Test Item Value Reference Range Interpretation Comments Alpha 1 % (test code = Alpha 1 %) 5.8 2.8-4.9 [facility] BeevilleCdawlufHLGBDVUKBW6663-63-80 18:22:00 Test Item Value Reference Range Interpretation Comments Alpha 2 % (test code = Alpha 2 %) 12.8 7.0-11.9 [place] [address]-02-07 18:22:00 Test Item Value Reference Range Interpretation Comments Beta % (test code = Beta %) 11.7 7.8-13.7 [place] 427542-02-07 18:22:00 Test Item Value Reference Range Interpretation Comments Gamma % (test code = Gamma %) 15.5 11.1-18.7 [place] 427542-02-07 18:22:00 Test Item Value Reference Range Interpretation Comments Albumin (SPE) (test code = Albumin 3.96 3.57-5.55 (SPE)) [place] 427542-02-07 18:22:00 Test Item Value Reference Range Interpretation Comments Alpha 1 Glob (test code = Alpha 1 Glob) 0.42 0.18-0.41 [place] 427542-02-07 18:22:00 Test Item Value Reference Range Interpretation Comments Alpha 2 Glob (test code = Alpha 2 Glob) 0.93 0.45-1.00 [place] [address]-02-07 18:22:00 Test Item Value Reference Range Interpretation Comments Beta Glob (test code = Beta Glob) 0.85 0.50-1.15 [place] [address]-02-07 18:22:00 Test Item Value Reference Range Interpretation Comments Gamma Glob (test code = Gamma Glob) 1.13 0.71-1.57 [place] [address]-02-07 18:22:00 Test Item Value Reference Range Interpretation Comments Tot Prot (SPE) (test code = Tot Prot 7.3 6.4-8.4 (SPE)) [facility]evilleAootsmkYTOLCOHPWU3727-61-83 18:22:00 Test Item Value Reference Range Interpretation [...] and concur with the resident's interpretation. CPT 78561-DT [facility]evilleQdqeicqYVPMQQHNRY5241-90-71 18:22:00 Test Item Value Reference Range Interpretation Comments [place] Free Light Chains (test code = 122.3 [place] Free [place] Chains) [place] 427542-02-07 18:22:00 Test Item Value Reference Range Interpretation Comments Lambda Free Light Chains (test code = 74.0 Lambda Free Light Chains) [facility]VgrtsqkWLYJKFFVCG4502-67-67 18:22:00 Test Item Value Reference Range Interpretation Comments [place]/Lambda Free Light Chains Ratio 1.65 1 (test code = [place]/Lambda Free Light Chains Ratio) [place] [address]-02-07 18:22:00 Test Item Value Reference Range Interpretation Comments CMV IgG (test code = CMV IgG) no gt [facility] BeevilleYhinsesUKKDHRGQQG6994-72-68 18:22:00 Test Item Value Reference Range Interpretation Comments EBV VCA IgG (test code = EBV VCA IgG) 239.00 [facility]woodHdtlnxmXRMGPTGISN4424-71-04 18:22:00 Test Item Value Reference Range Interpretation Comments HIV Ag/Ab 4th Gen Negative *NA*(04/08/21 (test code = HIV 12:22 PM) Ag/Ab 4th Gen) [facility]QupzcgvYXIGFSTVEQ3937-17-28 18:22:00 Test Item Value Reference Range Interpretation Comments Hep A Tot (test code = Hep A Tot) [facility]YbewwhqWMNZAHKFOC2387-70-73 18:22:00 Test Item Value Reference Range Interpretation Comments Hep Bs Ab (test code = Hep Bs Ab) no gt [facility]HvzpuguYWAJRGAATG3351-46-06 18:22:00 Test Item Value Reference Range Interpretation Comments Hep B Core Ab (test code = Hep B NON-REACTIVE Core Ab) [place] 427542-02-07 18:22:00 Test Item Value Reference Range Interpretation Comments Hep Bs Ag (test code Negative *NA*(04/08/21 = Hep Bs Ag) 12:22 PM) [place] 427542-02-07 18:22:00 Test Item Value Reference Range Interpretation Comments Hep C Ab (test code = Hep C Ab) NON-REACTIVE [place] 427542-02-07 18:22:00 Test Item Value Reference Range Interpretation Comments Hep Signal to Cut-Off (test code = Hep 0.01 1 Signal to Cut-Off) [place] 427542-02-07 18:22:00 Test Item Value Reference Range Interpretation Comments HSV 1 IgG (test code = HSV 1 IgG) 26.60 [place] 427542-02-07 18:22:00 Test Item Value Reference Range Interpretation Comments HSV 2 IgG (test code = HSV 2 IgG) no gt [place] [address]-02-07 18:22:00 Test Item Value Reference Range Interpretation Comments T-Spot.TB (test code = T-Spot.TB) TNP [facility]YqunweuEYAMUWVBEA9827-04-34 18:22:00 Test Item Value Reference Range Interpretation Comments T-Spot Pnl A Neg Ctrl Corrected (test TNP code = T-Spot Pnl A Neg Ctrl Corrected) [place] [address]-02-07 18:22:00 Test Item Value Reference Range Interpretation Comments T-Spot Pnl B Neg Ctrl Corrected (test TNP code = T-Spot Pnl B Neg Ctrl Corrected) [place] 427542-02-07 18:22:00 Test Item Value Reference Range Interpretation Comments T-Spot Neg Ctrl (test code = T-Spot Neg TNP Ctrl) [place] 427542-02-07 18:22:00 Test Item Value Reference Range Interpretation Comments T-Spot Pos Ctrl (test code = T-Spot Pos TNP Ctrl) [place] [address]-02-07 18:22:00 Test Item Value Reference Range Interpretation Comments Toxoplasma IgG (test code = Toxoplasma no gt IgG) [place] 427542-02-07 18:22:00 Test Item Value Reference Range Interpretation Comments Toxoplasma IgM (test code = Toxoplasma no gt IgM) [facility]KothkasBXMGABOEPQ9561-36-76 18:22:00 Test Item Value Reference Range Interpretation Comments Treponemal Ab (test code Non-Reactive = Treponemal Ab) 42(04/08/21 12:22 PM) [facility]oSzvwmgoQRBJHISGHM0569-06-70 18:22:00 Test Item Value Reference Range Interpretation Comments Varicella IgG (test code = Varicella 2806.00 IgG) [facility] PasoUrgnbwiOJUBNDERPU0065-26-39 18:22:00 Test Item Value Reference Range Interpretation Comments Mumps IgG (test code = Mumps IgG) no gt [facility] PasoDxigsbmYQRUXZZMXC9731-89-38 18:22:00 Test Item Value Reference Range Interpretation Comments Rubella IgG (test code = Rubella IgG) no gt [facility] PasoIqodsfmRDYWGRHGZZ2088-21-53 18:22:00 Test Item Value Reference Range Interpretation Comments Rubeola IgG (test code = Rubeola IgG) 204.00 [facility] PasoXxpufrwZPJGEL8650-99-08 18:22:00 Test Item Value Reference Range Interpretation Comments Trig (test code = Trig) 209 [facility] PasoNfdttkiFTDALA7487-40-20 18:22:00 Test Item Value Reference Range Interpretation Comments Chol (test code = Chol) 209 [facility] PasoQoirvjtSEEVTU8358-19-41 18:22:00 Test Item Value Reference Range Interpretation Comments HDL (test code = HDL) 33 [facility] PasoNpbpalxMWAVSZ8325-29-72 18:22:00 Test Item Value Reference Range Interpretation Comments CHD Risk (test code = CHD Risk) 6.33 1 4.00-7.30 [facility] PasoUfjvswaXUDQSV7768-23-73 18:22:00 Test Item Value Reference Range Interpretation Comments LDL (Calculated) (test code = LDL 134 (Calculated)) [facility] PasoYpsdgikRAAKSG7584-18-82 18:22:00 Test Item Value Reference Range Interpretation Comments VLDL (test code = VLDL) 42 1 [facility] PasoannPARASITOLOGY - SHEGHWOR1328-06-28 18:22:00 Test Item Value Reference Range Interpretation Comments Strongyloides Antibodies (test code NEGATIVE = Strongyloides Antibodies) [facility]woodPARATHYROID HJPMPSQ2652-30-89 18:22:00 Test Item Value Reference Range Interpretation Comments PTH Intact (test code = PTH Intact) 511.0 18.4-80.1 [facility]REF[facility] [id number] 18:22:00 Test Item Value Reference Range Interpretation Comments Misc Quest (test code = Misc Quest) REPORT [facility] [id number] 18:22:00 Test Item Value Reference Range Interpretation Comments Nicotine Lvl (test code = Nicotine Lvl) no gt [facility] [id number] 18:22:00 Test Item Value Reference Range Interpretation Comments Cotinine Lvl (test code = Cotinine Lvl) no gt [facility] FDRFURYYS5272-06-39 18:22:00 Test Item Value Reference Range Interpretation Comments Hgb A1C (test code = Hgb A1C) 5.7 [facility] [id number] 18:22:00 Test Item Value Reference Range Interpretation Comments PSA (test code = PSA) 2.26 [facility] - [id number] 18:22:00 Test Item Value Reference Range Interpretation Comments T cruzi (Chagas) Ab (test code = NONREACTIVE T cruzi (Chagas) Ab) [facility] RONXSBUK3723-96-38 18:22:00 Test Item Value Reference Range Interpretation Comments W Nile Ab IgG (test code = W Nile Ab no gt IgG) [facility] GLQQGDMU7968-33-07 18:22:00 Test Item Value Reference Range Interpretation Comments W Nile Ab IgM (test code = W Nile Ab no gt IgM) [facility] [id number] 18:22:00 Test Item Value Reference Range Interpretation Comments Ferritin Lvl (test code = Ferritin Lvl) 490 55-[address] [facility] [id number] 18:22:00 Test Item Value Reference Range Interpretation Comments Iron (test code = Iron) [address] [facility] [id number] 18:22:00 Test Item Value Reference Range Interpretation Comments TIBC (test code = TIBC) [address] [facility] [id number] 18:22:00 Test Item Value Reference Range Interpretation Comments % Satur Fe (test code = % Satur Fe) 30 [facility] [id number] 18:22:00 Test Item Value Reference Range Interpretation Comments Creatinine Lvl (test code = Creatinine 6.07 0.50-1.40 Lvl) [place] 498822-02-07 18:22:00 Test Item Value Reference Range Interpretation Comments eGFR (test code = eGFR) 9 [place] 498822-02-07 18:22:00 Test Item Value Reference Range Interpretation Comments Glucose Lvl (test code = Glucose Lvl) 75 70-99 [place] [address]-02-07 18:22:00 Test Item Value Reference Range Interpretation Comments BUN (test code = BUN) 39 7-22 [place] 498822-02-07 18:22:00 Test Item Value Reference Range Interpretation Comments Creatinine Lvl (test code = Creatinine 6.00 0.50-1.40 Lvl) [place] 498822-02-07 18:22:00 Test Item Value Reference Range Interpretation Comments Sodium Lvl (test code = Sodium Lvl) 139 135-145 [place] 498822-02-07 18:22:00 Test Item Value Reference Range Interpretation Comments Potassium Lvl (test code = Potassium 3.9 3.5-5.1 Lvl) [place] 498822-02-07 18:22:00 Test Item Value Reference Range Interpretation Comments Chloride Lvl (test code = Chloride Lvl) 104 95-109 [place] 498822-02-07 18:22:00 Test Item Value Reference Range Interpretation Comments CO2 (test code = CO2) 29 24-32 [place] 498822-02-07 18:22:00 Test Item Value Reference Range Interpretation Comments Calcium Lvl (test code = Calcium Lvl) 9.8 8.5-10.5 [place] 498822-02-07 18:22:00 Test Item Value Reference Range Interpretation Comments Total Protein (test code = Total 7.3 6.4-8.4 Protein) [place] 498822-02-07 18:22:00 Test Item Value Reference Range Interpretation Comments Albumin Lvl (test code = Albumin Lvl) 3.5 3.5-5.0 [place] 498822-02-07 18:22:00 Test Item Value Reference Range Interpretation Comments ALT (test code = ALT) 20 See_Comment [Auto mated message] The system which ge nerated this result transmit nicko reference range : <=65. The reference range was not used to interpr et this result as adebayo l/abnormal. [facility] [id number] 18:22:00 Test Item Value Reference Range Interpretation Comments AST (test code = AST) 9 See_Comment [Auto mated message] The system which ge nerated this result transmit nicko reference range : <=37. The reference range was not used to interpr et this result as adebayo l/abnormal. [facility] [id number] 18:22:00 Test Item Value Reference Range Interpretation Comments Alk Phos (test code = Alk Phos) 67 39-136 [facility] PasoUnmetric [id number] 18:22:00 Test Item Value Reference Range Interpretation Comments Bili Total (test code = Bili Total) 0.4 0.2-1.3 [place] 498822-02-07 18:22:00 Test Item Value Reference Range Interpretation Comments AGAP (test code = AGAP) 9.9 10.0-20.0 [facility] [id number] 18:22:00 Test Item Value Reference Range Interpretation Comments B/C Ratio (test code = B/C Ratio) 6 1 6-25 [facility] [id number] 18:22:00 Test Item Value Reference Range Interpretation Comments Globulin (test code = Globulin) 3.8 2.7-4.2 [facility] [id number] 18:22:00 Test Item Value Reference Range Interpretation Comments A/G Ratio (test code = A/G Ratio) 0.9 1 0.7-1.6 [facility] [id number] 18:22:00 Test Item Value Reference Range Interpretation Comments eGFR (test code = eGFR) 9 [facility] [id number] 18:22:00 Test Item Value Reference Range Interpretation Comments Magnesium Lvl (test code = Magnesium 1.6 1.8-2.4 Lvl) [place] 498822-02-07 18:22:00 Test Item Value Reference Range Interpretation Comments Phosphorus (test code = Phosphorus) 4.7 2.5-4.5 [facility] [id number] 18:22:00 Test Item Value Reference Range Interpretation Comments Uric Acid (test code = Uric Acid) 4.9 3.8-8.0 [facility] [id number] 18:22:00 Test Item Value Reference Range Interpretation Comments Vitamin D, 25-OH, Total (test code = 29 Vitamin D, 25-OH, Total) [facility]annDR[facility] [id number] 18:22:00 Test Item Value Reference Range Interpretation Comments Opiate Qnt (test code = Opiate Qnt) Negative [facility]annDR[facility] [id number] 18:22:00 Test Item Value Reference Range Interpretation Comments Kaitlin Scr (test code = Kaitlin Scr) Negative [facility]DR[facility] [id number] 18:22:00 Test Item Value Reference Range Interpretation Comments Cannab Scr (test code = Cannab Scr) Negative [facility] [id number] 18:22:00 Test Item Value Reference Range Interpretation Comments Methadone Scr (test code = Methadone Negative Scr) [facility] [id number] 18:22:00 Test Item Value Reference Range Interpretation Comments Cocaine Scr (test code = Cocaine Negative Scr) [facility]DR[facility] [id number] 18:22:00 Test Item Value Reference Range Interpretation Comments Benzodiaz Scr (test code = Benzodiaz Negative Scr) [facility] [id number] 18:22:00 Test Item Value Reference Range Interpretation Comments Amph Scr (test code = Amph Scr) Negative [facility]DR[facility] [id number] 18:22:00 Test Item Value Reference Range Interpretation Comments Opiate Scr (test code = Opiate Scr) Positive [facility] [id number] 18:22:00 Test Item Value Reference Range Interpretation Comments 6-Acetylmor Scr (test code = Negative 6-Acetylmor Scr) [facility]woodFUNGAL - [id number] 18:22:00 Test Item Value Reference Range Interpretation Comments Cryptococcal Ag (test Negative (04/08/21 code = Cryptococcal Ag) 12:22 PM) [facility] - [id number] 18:22:00 Test Item Value Reference Range Interpretation Comments Histo Yeast Ab (test code = Histo Yeast 1:16 Ab) [facility] - [id number] 18:22:00 Test Item Value Reference Range Interpretation Comments Histo mycel Ab (test code = Histo mycel 1:8 Ab) [facility]woodFUN[facility] - [id number] 18:22:00 Test Item Value Reference Range Interpretation Comments Blastomyces Ab (test code = NEGATIVE Blastomyces Ab) [facility]2022-02-07 18:22:00 Test Item Value Reference Range Interpretation Comments Coccid Ab IgM (test code = Coccid Ab NEGATIVE IgM) [facility]2022-02-07 18:22:00 Test Item Value Reference Range Interpretation Comments Coccid Ab IgG (test code = Coccid Ab NEGATIVE IgG) [place] 352162-02-07 18:22:00 Test Item Value Reference Range Interpretation Comments Segs (test code = Segs) 69.3 45.0-75.0 [place] 352162-02-07 18:22:00 Test Item Value Reference Range Interpretation Comments Lymphocytes (test code = Lymphocytes) 22.3 20.0-40.0 [place] [address]-02-07 18:22:00 Test Item Value Reference Range Interpretation Comments Monocytes (test code = Monocytes) 4.8 2.0-12.0 [place] [address]-02-07 18:22:00 Test Item Value Reference Range Interpretation Comments Eosinophils (test code = 3.0 See_Comment [A utomated message] The Eosinophils) system which ge nerated this result tra nsmitted reference range : <=4.0. The reference r carlos was not used to int erpret this result as normal/abnormal . [place] 352162-02-07 18:22:00 Test Item Value Reference Range Interpretation Comments Basophils (test code = 0.6 See_Comment [Aut omated message] The Basophils) system which ge nerated this result tra nsmitted reference range : <=1.0. The reference r carlos was not used to int erpret this result as normal/abnormal . [place] 352162-02-07 18:22:00 Test Item Value Reference Range Interpretation Comments Neutrophils # (test code = Neutrophils 5.6 1.5-8.1 #) [place] 352162-02-07 18:22:00 Test Item Value Reference Range Interpretation Comments Lymphocytes # (test code = Lymphocytes 1.8 1.0-5.5 #) [place] 352162-02-07 18:22:00 Test Item Value Reference Range Interpretation Comments Monocytes # (test code 0.4 See_Comment [Aut omated message] The = Monocytes #) system which generated this result tra nsmitted reference range : <=0.8. The reference r carlos was not used to int erpret this result as normal/abnormal . [facility] HospitalUhdowyfWCURNHTCWO4417-34-33 18:22:00 Test Item Value Reference Range Interpretation Comments Eosinophils # (test code 0.2 See_Comment [A utomated message] The = Eosinophils #) system whic h generated this result tra nsmitted reference range : <=0.5. The reference r carlos was not used to int erpret this result as normal/abnormal . [facility] HospitalKejpxysBKILIJGRWH4566-02-01 18:22:00 Test Item Value Reference Range Interpretation Comments PT (test code = PT) 12.6 s 12.0-14.7 [facility] HospitalXzxwnuzAVFSQYKTNX9312-63-23 18:22:00 Test Item Value Reference Range Interpretation Comments INR (test code = INR) 0.95 1 0.85-1.17 [facility] HospitalSpekqpwSUFDEECVOY1116-41-12 18:22:00 Test Item Value Reference Range Interpretation Comments PTT (test code = PTT) 32.2 s 22.9-35.8 [facility] HospitalIcoqhnhCOIXUYDKDD0094-18-46 18:22:00 Test Item Value Reference Range Interpretation Comments TEG Interp (test Thrombelastograph results code = TEG show increased values of Interp) both Angle Alpha and MA. These findings are suggestive of platelet hypercoagulation. CPT:95002 [facility] HospitalWwibryhHEMQAJPTOV9271-53-01 18:22:00 Test Item Value Reference Range Interpretation Comments R-time (test code = R-time) 6.0 min 5.0-10.0 [facility] HospitalMafjlyqGACLEFERTM8534-45-63 18:22:00 Test Item Value Reference Range Interpretation Comments K-time (test code = K-time) 1.1 min 1.0-3.0 [facility] HospitalYgvwjoqZMXNOSBPKG7686-04-27 18:22:00 Test Item Value Reference Range Interpretation Comments Angle (test code = Angle) 74.1 degrees 53.0-72.0 [facility] HospitalTzbjykaDCTAPIHHXQ5684-98-24 18:22:00 Test Item Value Reference Range Interpretation Comments Max Amp (test code = Max Amp) 73.3 mm 50.0-70.0 [facility] HospitalAsazreeZTPPRYNKRV7157-93-58 18:22:00 Test Item Value Reference Range Interpretation Comments G-value (test code = G-value) 13.7 4.5-11.0 [place] [address]-02-07 18:22:00 Test Item Value Reference Range Interpretation Comments Ly30 (test code = 0.0 See_Comment [Automate d message] The Ly30) system which ge nerated this result transmit nicko reference range : <=7.5. The reference range was not used to interpr et this result as adebayo l/abnormal. [place] [address]-02-07 18:22:00 Test Item Value Reference Range Interpretation Comments Coag Index (test code 2.5 1 See_Comment [Auto mated message] The = Coag Index) system which g enerated this result transmit nicko reference range : <=3.0. The reference range was not used to interpr et this result as adebayo l/abnormal. [place] 352162-02-07 18:22:00 Test Item Value Reference Range Interpretation Comments TEG Data (test code = See Note (04/08/21 12:22 TEG Data) PM) [place] [address]-02-07 18:22:00 Test Item Value Reference Range Interpretation Comments WBC (test code = WBC) 8.0 3.7-10.4 [place] [address]-02-07 18:22:00 Test Item Value Reference Range Interpretation Comments RBC (test code = RBC) 3.87 4.70-6.10 [place] [address]-02-07 18:22:00 Test Item Value Reference Range Interpretation Comments Hgb (test code = Hgb) 12.0 14.0-18.0 [place] [address]-02-07 18:22:00 Test Item Value Reference Range Interpretation Comments Hct (test code = Hct) 37.0 42.0-54.0 [place] [address]-02-07 18:22:00 Test Item Value Reference Range Interpretation Comments MCV (test code = MCV) 95.8 80.0-94.0 [place] [address]-02-07 18:22:00 Test Item Value Reference Range Interpretation Comments MCH (test code = MCH) 31.1 pg 27.0-31.0 [place] [address]-02-07 18:22:00 Test Item Value Reference Range Interpretation Comments MCHC (test code = MCHC) 32.4 32.0-36.0 [facility] HospitalEnnvxhiVVGKRYVMYQ4371-12-64 18:22:00 Test Item Value Reference Range Interpretation Comments RDW (test code = RDW) 15.1 11.5-14.5 [facility] HospitalMuyxhlbZQVWLSIQQD5159-29-46 18:22:00 Test Item Value Reference Range Interpretation Comments Platelet (test code = Platelet) 255 133-450 [facility] HospitalAykqoieITPQORLUDG5797-70-07 18:22:00 Test Item Value Reference Range Interpretation Comments MPV (test code = MPV) 8.7 7.4-10.4 [facility]evilleDmhxbozZAAMTYCHOO2849-63-36 18:22:00 Test Item Value Reference Range Interpretation Comments KAREN Ser Pattern A distinct monoclonal (test code = KAREN Ser band is present in the Pattern) IgM izabella with a corresponding distinct band in the kappa light chain izabella. The polyclonal gamma globulin background is preserved in all lanes. [facility]evilleSwufevbRGEXXWFIES1430-67-65 18:22:00 Test Item Value Reference Range Interpretation [...] and concur with the resident's interpretation. CPT 30408-KW [facility]evilleOzcdddwYZFSXOMWUS4053-40-88 18:22:00 Test Item Value Reference Range Interpretation Comments Cystatin C (test code = Cystatin C) 5.38 [place] 427542-02-07 18:22:00 Test Item Value Reference Range Interpretation Comments eGFR Cystatin-based (test code = eGFR 8 Cystatin-based) [facility]evilleObzttbgCTEJTPRJNH8524-63-80 18:22:00 Test Item Value Reference Range Interpretation Comments Albumin % (test code = Albumin %) 54.2 55.8-66.1 [place] 427542-02-07 18:22:00 Test Item Value Reference Range Interpretation Comments Alpha 1 % (test code = Alpha 1 %) 5.8 2.8-4.9 [place] 427542-02-07 18:22:00 Test Item Value Reference Range Interpretation Comments Alpha 2 % (test code = Alpha 2 %) 12.8 7.0-11.9 [facility]woodEbxdcdgNLHGFSMRNY9847-13-57 18:22:00 Test Item Value Reference Range Interpretation Comments Beta % (test code = Beta %) 11.7 7.8-13.7 [facility]woodFzhtjhlQYRERPXPRB6515-51-42 18:22:00 Test Item Value Reference Range Interpretation Comments Gamma % (test code = Gamma %) 15.5 11.1-18.7 [facility]woodDzipafgTHKCDMYOVW9210-19-23 18:22:00 Test Item Value Reference Range Interpretation Comments Albumin (SPE) (test code = Albumin 3.96 3.57-5.55 (SPE)) [facility]woodOatnvlbWHXEHEATNJ9715-04-57 18:22:00 Test Item Value Reference Range Interpretation Comments Alpha 1 Glob (test code = Alpha 1 Glob) 0.42 0.18-0.41 [facility]woodDbxgcelCEJTSGRRON7744-96-11 18:22:00 Test Item Value Reference Range Interpretation Comments Alpha 2 Glob (test code = Alpha 2 Glob) 0.93 0.45-1.00 [facility]woodCnsbnziBHMLFGBMFI1062-36-38 18:22:00 Test Item Value Reference Range Interpretation Comments Beta Glob (test code = Beta Glob) 0.85 0.50-1.15 [facility]woodSfvrbzqKYGSZAEMZH8414-53-48 18:22:00 Test Item Value Reference Range Interpretation Comments Gamma Glob (test code = Gamma Glob) 1.13 0.71-1.57 [facility]woodOfvujvhEAUXTSJWGI1770-63-49 18:22:00 Test Item Value Reference Range Interpretation Comments Tot Prot (SPE) (test code = Tot Prot 7.3 6.4-8.4 (SPE)) [facility] KingwoodBuzlyinQFHTRJQCOS0287-47-27 18:22:00 Test Item Value Reference Range Interpretation [...] and concur with the resident's interpretation. CPT 73001-YI [facility]evilleDwkqtdqGCVJHHNDSS9192-93-04 18:22:00 Test Item Value Reference Range Interpretation Comments [place] Free Light Chains (test code = 122.3 [place] Free Light Chains) [facility]evilleMxrgidjCONIFNXLWA6840-96-32 18:22:00 Test Item Value Reference Range Interpretation Comments Lambda Free Light Chains (test code = 74.0 Lambda Free Light Chains) [place] 427542-02-07 18:22:00 Test Item Value Reference Range Interpretation Comments [place]/Lambda Free Light Chains Ratio 1.65 1 (test code = [place]/Lambda Free Light Chains Ratio) [facility]evilleDfxittdZQTKEQMVXS1630-08-21 18:22:00 Test Item Value Reference Range Interpretation Comments CMV IgG (test code = CMV IgG) no gt [facility] BeevilleSpgilyaJDFKTJKZCE5199-95-76 18:22:00 Test Item Value Reference Range Interpretation Comments EBV VCA IgG (test code = EBV VCA IgG) 239.00 [place] 427542-02-07 18:22:00 Test Item Value Reference Range Interpretation Comments HIV Ag/Ab 4th Gen Negative *NA*(04/08/21 (test code = HIV 12:22 PM) Ag/Ab 4th Gen) [facility]evilleBgogixuYQLVOYXNDS5557-24-36 18:22:00 Test Item Value Reference Range Interpretation Comments Hep A Tot (test code = Hep A Tot) REACTIVE [facility] BeevilleMjltwftCQPKSYYMYX2386-48-90 18:22:00 Test Item Value Reference Range Interpretation Comments Hep Bs Ab (test code = Hep Bs Ab) no gt [facility]evilleQfqqxrxGZLAEJJIVB8158-83-13 18:22:00 Test Item Value Reference Range Interpretation Comments Hep B Core Ab (test code = Hep B NON-REACTIVE Core Ab) [facility] BeevilleKmxxutfKPPDDXCVWV0635-07-68 18:22:00 Test Item Value Reference Range Interpretation Comments Hep Bs Ag (test code Negative *NA*(04/08/21 = Hep Bs Ag) 12:22 PM) [place] [address]-02-07 18:22:00 Test Item Value Reference Range Interpretation Comments Hep C Ab (test code = Hep C Ab) [facility]IVE [facility] [place]jjtklsLDNQNMAWQY9543-77-08 18:22:00 Test Item Value Reference Range Interpretation Comments Hep Signal to Cut-Off (test code = Hep 0.01 1 Signal to Cut-Off) [place] 427542-02-07 18:22:00 Test Item Value Reference Range Interpretation Comments HSV 1 IgG (test code = HSV 1 IgG) 26.60 [place] [address]-02-07 18:22:00 Test Item Value Reference Range Interpretation Comments HSV 2 IgG (test code = HSV 2 IgG) no gt [place] 427542-02-07 18:22:00 Test Item Value Reference Range Interpretation Comments T-Spot.TB (test code = T-Spot.TB) TNP [facility] [place]DnqopgpGBVIFXUPBE0761-52-79 18:22:00 Test Item Value Reference Range Interpretation Comments T-Spot Pnl A Neg Ctrl Corrected (test TNP code = T-Spot Pnl A Neg Ctrl Corrected) [place] 427542-02-07 18:22:00 Test Item Value Reference Range Interpretation Comments T-Spot Pnl B Neg Ctrl Corrected (test TNP code = T-Spot Pnl B Neg Ctrl Corrected) [place] 427542-02-07 18:22:00 Test Item Value Reference Range Interpretation Comments T-Spot Neg Ctrl (test code = T-Spot Neg TNP Ctrl) [facility] [place]UydfqiqGQGNTPOHRJ2507-33-23 18:22:00 Test Item Value Reference Range Interpretation Comments T-Spot Pos Ctrl (test code = T-Spot Pos TNP Ctrl) [place] [address]-02-07 18:22:00 Test Item Value Reference Range Interpretation Comments Toxoplasma IgG (test code = Toxoplasma no gt IgG) [place] [address]-02-07 18:22:00 Test Item Value Reference Range Interpretation Comments Toxoplasma IgM (test code = Toxoplasma no gt IgM) [place] 427542-02-07 18:22:00 Test Item Value Reference Range Interpretation Comments Treponemal Ab (test code Non-Reactive = Treponemal Ab) 42(04/08/21 12:22 PM) [place] [address]-02-07 18:22:00 Test Item Value Reference Range Interpretation Comments Varicella IgG (test code = Varicella 2806.00 IgG) [place] [address]-02-07 18:22:00 Test Item Value Reference Range Interpretation Comments Mumps IgG (test code = Mumps IgG) no gt [place] 427542-02-07 18:22:00 Test Item Value Reference Range Interpretation Comments Rubella IgG (test code = Rubella IgG) no gt [facility]CryqfktYISKEPUGEP9175-86-90 18:22:00 Test Item Value Reference Range Interpretation Comments Rubeola IgG (test code = Rubeola IgG) 204.00 [facility] PasoQlzyiytYVSWTH2632-99-63 18:22:00 Test Item Value Reference Range Interpretation Comments Trig (test code = Trig) 209 [facility] PasoDorrhhrDFHKMS2869-47-75 18:22:00 Test Item Value Reference Range Interpretation Comments Chol (test code = Chol) 209 [facility] PasoAuapdcbSCBHCK8851-56-25 18:22:00 Test Item Value Reference Range Interpretation Comments HDL (test code = HDL) 33 [facility] PasoEkvapsoPKNSMF9040-22-42 18:22:00 Test Item Value Reference Range Interpretation Comments CHD Risk (test code = CHD Risk) 6.33 1 4.00-7.30 [facility] PasoGteqzwgNKGECD4455-51-14 18:22:00 Test Item Value Reference Range Interpretation Comments LDL (Calculated) (test code = LDL 134 (Calculated)) [facility] PasoAibwxrlVWYWXJ1540-34-93 18:22:00 Test Item Value Reference Range Interpretation Comments VLDL (test code = VLDL) 42 1 [facility] PasoannPARASITOLOGY - [id number] 18:22:00 Test Item Value Reference Range Interpretation Comments Strongyloides Antibodies (test code NEGATIVE = Strongyloides Antibodies) [facility]PARATHYROID [id number] 18:22:00 Test Item Value Reference Range Interpretation Comments PTH Intact (test code = PTH Intact) 511.0 18.4-80.1 [facility] PasoannREFERENCE LAB ZQIFWCB0725-26-11 18:22:00 Test Item Value Reference Range Interpretation Comments Misc Quest (test code = Misc Quest) REPORT [facility] PasoannSPECIAL [id number] 18:22:00 Test Item Value Reference Range Interpretation Comments Nicotine Lvl (test code = Nicotine Lvl) no [facility] [id number] 18:22:00 Test Item Value Reference Range Interpretation Comments Cotinine Lvl (test code = Cotinine Lvl) no [facility] [id number] 18:22:00 Test Item Value Reference Range Interpretation Comments Hgb A1C (test code = Hgb A1C) 5.7 [facility] [id number] 18:22:00 Test Item Value Reference Range Interpretation Comments PSA (test code = PSA) 2.26 [facility] [id number] 18:22:00 Test Item Value Reference Range Interpretation Comments T cruzi (Chagas) Ab (test code = NONREACTIVE T cruzi (Chagas) Ab) [facility] [id number] 18:22:00 Test Item Value Reference Range Interpretation Comments W Nile Ab IgG (test code = W Nile Ab no gt IgG) [facility]2022-02-07 18:22:00 Test Item Value Reference Range Interpretation Comments W Nile Ab IgM (test code = W Nile Ab no gt IgM) [facility]2022-02-07 18:22:00 Test Item Value Reference Range Interpretation Comments Ferritin Lvl (test code = Ferritin Lvl) 498 22275 [facility]2022-02-07 18:22:00 Test Item Value Reference Range Interpretation Comments Iron (test code = Iron) 84 [facility]2022-02-07 18:22:00 Test Item Value Reference Range Interpretation Comments TIBC (test code = TIBC) 276 [facility]2022-02-07 18:22:00 Test Item Value Reference Range Interpretation Comments % Satur Fe (test code = % Satur Fe) [address] [facility]2022-02-07 18:22:00 Test Item Value Reference Range Interpretation Comments Creatinine Lvl (test code = Creatinine 6.07 0.50-1.40 Lvl) [facility]2022-02-07 18:22:00 Test Item Value Reference Range Interpretation Comments eGFR (test code = eGFR) [address] [facility]2022-02-07 18:22:00 Test Item Value Reference Range Interpretation Comments Glucose Lvl (test code = Glucose Lvl) 75 70-[address] [facility]2022-02-07 18:22:00 Test Item Value Reference Range Interpretation Comments BUN (test code = BUN) 39 7-[address] [facility]2022-02-07 18:22:00 Test Item Value Reference Range Interpretation Comments Creatinine Lvl (test code = Creatinine 6.00 0.50-1.40 Lvl) [facility]2022-02-07 18:22:00 Test Item Value Reference Range Interpretation Comments Sodium Lvl (test code = Sodium Lvl) 139 135-145 [place] 498822-02-07 18:22:00 Test Item Value Reference Range Interpretation Comments Potassium Lvl (test code = Potassium 3.9 3.5-5.1 Lvl) [place] 498822-02-07 18:22:00 Test Item Value Reference Range Interpretation Comments Chloride Lvl (test code = Chloride Lvl) 104 95-109 [place] 498822-02-07 18:22:00 Test Item Value Reference Range Interpretation Comments CO2 (test code = CO2) 29 24-32 [place] 498822-02-07 18:22:00 Test Item Value Reference Range Interpretation Comments Calcium Lvl (test code = Calcium Lvl) 9.8 8.5-10.5 [place] 498822-02-07 18:22:00 Test Item Value Reference Range Interpretation Comments Total Protein (test code = Total 7.3 6.4-8.4 Protein) [place] 498822-02-07 18:22:00 Test Item Value Reference Range Interpretation Comments Albumin Lvl (test code = Albumin Lvl) 3.5 3.5-5.0 [place] 498822-02-07 18:22:00 Test Item Value Reference Range Interpretation Comments ALT (test code = ALT) 20 See_Comment [Auto mated message] The system which ge nerated this result transmit nicko reference range : <=65. The reference range was not used to interpr et this result as adebayo l/abnormal. [facility] [id number] 18:22:00 Test Item Value Reference Range Interpretation Comments AST (test code = AST) 9 See_Comment [Auto mated message] The system which ge nerated this result transmit nicko reference range : <=37. The reference range was not used to interpr et this result as adebayo l/abnormal. [facility] [id number] 18:22:00 Test Item Value Reference Range Interpretation Comments Alk Phos (test code = Alk Phos) 67 39-136 [facility] [id number] 18:22:00 Test Item Value Reference Range Interpretation Comments Bili Total (test code = Bili Total) 0.4 0.2-1.3 [facility] [id number] 18:22:00 Test Item Value Reference Range Interpretation Comments AGAP (test code = AGAP) 9.9 10.0-20.0 [facility] [id number] 18:22:00 Test Item Value Reference Range Interpretation Comments B/C Ratio (test code = B/C Ratio) 6 1 6-25 [facility] [id number] 18:22:00 Test Item Value Reference Range Interpretation Comments Globulin (test code = Globulin) 3.8 2.7-4.2 [facility] [id number] 18:22:00 Test Item Value Reference Range Interpretation Comments A/G Ratio (test code = A/G Ratio) 0.9 1 0.7-1.6 [facility] [id number] 18:22:00 Test Item Value Reference Range Interpretation Comments eGFR (test code = eGFR) 9 [facility] PasoUn[facility] [id number] 18:22:00 Test Item Value Reference Range Interpretation Comments Magnesium Lvl (test code = Magnesium 1.6 1.8-2.4 Lvl) [facility] [id number] 18:22:00 Test Item Value Reference Range Interpretation Comments Phosphorus (test code = Phosphorus) 4.7 2.5-4.5 [facility] [id number] 18:22:00 Test Item Value Reference Range Interpretation Comments Uric Acid (test code = Uric Acid) 4.9 3.8-8.0 [facility] [id number] 18:22:00 Test Item Value Reference Range Interpretation Comments Vitamin D, 25-OH, Total (test code = 29 Vitamin D, 25-OH, Total) [facility] Paso[facility] [id number] 18:22:00 Test Item Value Reference Range Interpretation Comments Opiate Qnt (test code = Opiate Qnt) Negative [facility] PasoNewCross TechnologiesDRUG [id number] 18:22:00 Test Item Value Reference Range Interpretation Comments Kaitlin Scr (test code = Kaitlin Scr) Negative [facility] PasoNewCross TechnologiesDRUG [id number] 18:22:00 Test Item Value Reference Range Interpretation Comments Cannab Scr (test code = Cannab Scr) Negative [facility] PasoNewCross TechnologiesDRUG [id number] 18:22:00 Test Item Value Reference Range Interpretation Comments Methadone Scr (test code = Methadone Negative Scr) [facility] [id number] 18:22:00 Test Item Value Reference Range Interpretation Comments Cocaine Scr (test code = Cocaine Negative Scr) [facility]woodDR[facility] [id number] 18:22:00 Test Item Value Reference Range Interpretation Comments Benzodiaz Scr (test code = Benzodiaz Negative Scr) [facility]woodDR[facility] [id number] 18:22:00 Test Item Value Reference Range Interpretation Comments Amph Scr (test code = Amph Scr) Negative [facility]woodDR[facility] [id number] 18:22:00 Test Item Value Reference Range Interpretation Comments Opiate Scr (test code = Opiate Scr) Positive [facility] [id number] 18:22:00 Test Item Value Reference Range Interpretation Comments 6-Acetylmor Scr (test code = Negative 6-Acetylmor Scr) [facility]2022-02-07 18:22:00 Test Item Value Reference Range Interpretation Comments Cryptococcal Ag (test Negative (04/08/21 code = Cryptococcal Ag) 12:22 PM) [facility] [id number] 18:22:00 Test Item Value Reference Range Interpretation Comments Histo Yeast Ab (test code = Histo Yeast 1:16 Ab) [facility]2022-02-07 18:22:00 Test Item Value Reference Range Interpretation Comments Histo mycel Ab (test code = Histo mycel 1:8 Ab) [facility]2022-02-07 18:22:00 Test Item Value Reference Range Interpretation Comments Blastomyces Ab (test code = NEGATIVE Blastomyces Ab) [facility] [id number] 18:22:00 Test Item Value Reference Range Interpretation Comments Coccid Ab IgM (test code = Coccid Ab NEGATIVE IgM) [facility] [id number] 18:22:00 Test Item Value Reference Range Interpretation Comments Coccid Ab IgG (test code = Coccid Ab NEGATIVE IgG) [facility]GdacuhzSTHYVNDJYF3849-65-28 18:22:00 Test Item Value Reference Range Interpretation Comments Segs (test code = Segs) 69.3 45.0-75.0 [facility] SystemGbrsdkuCBDRJRMBZZ6673-52-82 18:22:00 Test Item Value Reference Range Interpretation Comments Lymphocytes (test code = Lymphocytes) 22.3 20.0-40.0 [facility]DleyequSDQNSGCGQA0223-62-33 18:22:00 Test Item Value Reference Range Interpretation Comments Monocytes (test code = Monocytes) 4.8 2.0-12.0 [facility] HospitalDgbpxvvJYYUFVEEEW6173-91-74 18:22:00 Test Item Value Reference Range Interpretation Comments Eosinophils (test code = 3.0 See_Comment [A utomated message] The Eosinophils) system which ge nerated this result tra nsmitted reference range : <=4.0. The reference r carlos was not used to int erpret this result as normal/abnormal . [facility] HospitalMdzyrxnNIYSMOWKIT9090-62-54 18:22:00 Test Item Value Reference Range Interpretation Comments Basophils (test code = 0.6 See_Comment [Aut omated message] The Basophils) system which ge nerated this result tra nsmitted reference range : <=1.0. The reference r carlos was not used to int erpret this result as normal/abnormal . [facility] HospitalXraicouUHXTSCCARC0907-55-68 18:22:00 Test Item Value Reference Range Interpretation Comments Neutrophils # (test code = Neutrophils 5.6 1.5-8.1 #) [facility] HospitalQltscbqEJXMWEXPYN5087-97-25 18:22:00 Test Item Value Reference Range Interpretation Comments Lymphocytes # (test code = Lymphocytes 1.8 1.0-5.5 #) [facility] HospitalMkbgxlqYJCQBQLXHO9487-73-33 18:22:00 Test Item Value Reference Range Interpretation Comments Monocytes # (test code 0.4 See_Comment [Aut omated message] The = Monocytes #) system which generated this result tra nsmitted reference range : <=0.8. The reference r carlos was not used to int erpret this result as normal/abnormal . [facility] Hos[id number] 18:22:00 Test Item Value Reference Range Interpretation Comments Eosinophils # (test code 0.2 See_Comment [A utomated message] The = Eosinophils #) system whic h generated this result tra nsmitted reference range : <=0.5. The reference r carlos was not used to int erpret this result as normal/abnormal . [facility] HospitalWsjgyynYWBXVFDYUY8274-79-42 18:22:00 Test Item Value Reference Range Interpretation Comments PT (test code = PT) 12.6 s 12.0-14.7 [place] 352162-02-07 18:22:00 Test Item Value Reference Range Interpretation Comments INR (test code = INR) 0.95 1 0.85-1.17 [place] 352162-02-07 18:22:00 Test Item Value Reference Range Interpretation Comments PTT (test code = PTT) 32.2 s 22.9-35.8 [place] 352162-02-07 18:22:00 Test Item Value Reference Range Interpretation Comments TEG Interp (test Thrombelastograph results code = TEG show increased values of Interp) both Angle Alpha and MA. These findings are suggestive of platelet hypercoagulation. CPT:46104 [facility] HospitalVzdabcmVMSASEBWAA2577-42-15 18:22:00 Test Item Value Reference Range Interpretation Comments R-time (test code = R-time) 6.0 min 5.0-10.0 [place] 352162-02-07 18:22:00 Test Item Value Reference Range Interpretation Comments K-time (test code = K-time) 1.1 min 1.0-3.0 [place] 352162-02-07 18:22:00 Test Item Value Reference Range Interpretation Comments Angle (test code = Angle) 74.1 degrees 53.0-72.0 [place] 352162-02-07 18:22:00 Test Item Value Reference Range Interpretation Comments Max Amp (test code = Max Amp) 73.3 mm 50.0-70.0 [place] 352162-02-07 18:22:00 Test Item Value Reference Range Interpretation Comments G-value (test code = G-value) 13.7 4.5-11.0 [place] 352162-02-07 18:22:00 Test Item Value Reference Range Interpretation Comments Ly30 (test code = 0.0 See_Comment [Automate d message] The Ly30) system which ge nerated this result transmit nicko reference range : <=7.5. The reference range was not used to interpr et this result as adebayo l/abnormal. [place] 352162-02-07 18:22:00 Test Item Value Reference Range Interpretation Comments Coag Index (test code 2.5 1 See_Comment [Auto mated message] The = Coag Index) system which g enerated this result transmit nicko reference range : <=3.0. The reference range was not used to interpr et this result as adebayo l/abnormal. [facility] HospitalOswajznNYXWMJUBPB7791-73-61 18:22:00 Test Item Value Reference Range Interpretation Comments TEG Data (test code = See Note (04/08/21 12:22 TEG Data) PM) [facility] H[id number] 18:22:00 Test Item Value Reference Range Interpretation Comments WBC (test code = WBC) 8.0 3.7-10.4 [facility] HospitalH[id number] 18:22:00 Test Item Value Reference Range Interpretation Comments RBC (test code = RBC) 3.87 4.70-6.10 [facility] HospitalSitcfxqSENXVGQWFU6717-65-72 18:22:00 Test Item Value Reference Range Interpretation Comments Hgb (test code = Hgb) 12.0 14.0-18.0 [facility] HospitalKojhvwiUWPCBMDKNQ2834-70-71 18:22:00 Test Item Value Reference Range Interpretation Comments Hct (test code = Hct) 37.0 42.0-54.0 [facility] HospitalFjmxcjcRAYIMEPGLN7199-72-60 18:22:00 Test Item Value Reference Range Interpretation Comments MCV (test code = MCV) 95.8 80.0-94.0 [facility] HospitalOqufouvYWSGNITRGU0447-42-75 18:22:00 Test Item Value Reference Range Interpretation Comments MCH (test code = MCH) 31.1 pg 27.0-31.0 [facility] HospitalTfswiowZEVSXJVTHA4961-16-44 18:22:00 Test Item Value Reference Range Interpretation Comments MCHC (test code = MCHC) 32.4 32.0-36.0 [place] 352162-02-07 18:22:00 Test Item Value Reference Range Interpretation Comments RDW (test code = RDW) 15.1 11.5-14.5 [facility] HospitalVmsffhcMXBFYCCKMN9177-43-51 18:22:00 Test Item Value Reference Range Interpretation Comments Platelet (test code = Platelet) 255 133-450 [facility] HospitalElsjdcnFLAOFEHRVM5539-06-73 18:22:00 Test Item Value Reference Range Interpretation Comments MPV (test code = MPV) 8.7 7.4-10.4 [place] 427542-02-07 18:22:00 Test Item Value Reference Range Interpretation Comments KAREN Ser Pattern A distinct monoclonal (test code = KAREN Ser band is present in the Pattern) IgM izabella with a corresponding distinct band in the kappa light chain izabella. The polyclonal gamma globulin background is preserved in all lanes. [place] [address]-02-07 18:22:00 Test Item Value Reference Range Interpretation [...] and concur with the resident's interpretation. CPT 51434-SC [place] 427542-02-07 18:22:00 Test Item Value Reference Range Interpretation Comments Cystatin C (test code = Cystatin C) 5.38 [place] 427542-02-07 18:22:00 Test Item Value Reference Range Interpretation Comments eGFR Cystatin-based (test code = eGFR 8 Cystatin-based) [place] 427542-02-07 18:22:00 Test Item Value Reference Range Interpretation Comments Albumin % (test code = Albumin %) 54.2 55.8-66.1 [place] [address]-02-07 18:22:00 Test Item Value Reference Range Interpretation Comments Alpha 1 % (test code = Alpha 1 %) 5.8 2.8-4.9 [place] [address]-02-07 18:22:00 Test Item Value Reference Range Interpretation Comments Alpha 2 % (test code = Alpha 2 %) 12.8 7.0-11.9 [place] [address]-02-07 18:22:00 Test Item Value Reference Range Interpretation Comments Beta % (test code = Beta %) 11.7 7.8-13.7 [place] [address]-02-07 18:22:00 Test Item Value Reference Range Interpretation Comments Gamma % (test code = Gamma %) 15.5 11.1-18.7 [place] [address]-02-07 18:22:00 Test Item Value Reference Range Interpretation Comments Albumin (SPE) (test code = Albumin 3.96 3.57-5.55 (SPE)) [facility]woodSrzoeoaWFKGZMAHWV0410-68-90 18:22:00 Test Item Value Reference Range Interpretation Comments Alpha 1 Glob (test code = Alpha 1 Glob) 0.42 0.18-0.41 [facility]woodGnjbirsGUHHBJNWKL3011-71-03 18:22:00 Test Item Value Reference Range Interpretation Comments Alpha 2 Glob (test code = Alpha 2 Glob) 0.93 0.45-1.00 [facility] KingwoodZkoxoviVJLGOWWEYI2509-70-93 18:22:00 Test Item Value Reference Range Interpretation Comments Beta Glob (test code = Beta Glob) 0.85 0.50-1.15 [facility] KingwoodFubexygLFNPRCGEVJ4793-23-91 18:22:00 Test Item Value Reference Range Interpretation Comments Gamma Glob (test code = Gamma Glob) 1.13 0.71-1.57 [facility]woodDwtznolMOBSWDALHF4871-84-04 18:22:00 Test Item Value Reference Range Interpretation Comments Tot Prot (SPE) (test code = Tot Prot 7.3 6.4-8.4 (SPE)) [facility]woodYudjsupZPLTJLTETG9717-35-90 18:22:00 Test Item Value Reference Range Interpretation [...] and concur with the resident's interpretation. CPT 65940-OY [facility]woodHfovynjVRHSHJIVQV0037-65-51 18:22:00 Test Item Value Reference Range Interpretation Comments [place] Free Light Chains (test code = 122.3 [place] Free Light Chains) [facility]woodQemgthpAMQGMAMNYD2813-16-93 18:22:00 Test Item Value Reference Range Interpretation Comments Lambda Free Light Chains (test code = 74.0 Lambda Free Light Chains) [facility]woodMnrzmcvAZOGECEKIZ7876-77-93 18:22:00 Test Item Value Reference Range Interpretation Comments [place]/Lambda Free Light Chains Ratio 1.65 1 (test code = [place]/Lambda Free Light Chains Ratio) [facility]woodIdkeqgkLSAHXMGFGI2314-29-60 18:22:00 Test Item Value Reference Range Interpretation Comments CMV IgG (test code = CMV IgG) no gt [facility]YmuvzdjBEWZJVRRKA3908-90-34 18:22:00 Test Item Value Reference Range Interpretation Comments EBV VCA IgG (test code = EBV VCA IgG) 239.00 [place] 427542-02-07 18:22:00 Test Item Value Reference Range Interpretation Comments HIV Ag/Ab 4th Gen Negative *NA*(04/08/21 (test code = HIV 12:22 PM) Ag/Ab 4th Gen) [place] [address]-02-07 18:22:00 Test Item Value Reference Range Interpretation Comments Hep A Tot (test code = Hep A Tot) REACTIVE [place] 427542-02-07 18:22:00 Test Item Value Reference Range Interpretation Comments Hep Bs Ab (test code = Hep Bs Ab) no [facility]2022-02-07 18:22:00 Test Item Value Reference Range Interpretation Comments Hep B Core Ab (test code = Hep B NON-REACTIVE Core Ab) [place] 427542-02-07 18:22:00 Test Item Value Reference Range Interpretation Comments Hep Bs Ag (test code Negative *NA*(04/08/21 = Hep Bs Ag) 12:22 PM) [facility]evilleDnucshfWLTYCKELOL9882-28-03 18:22:00 Test Item Value Reference Range Interpretation Comments Hep C Ab (test code = Hep C Ab) NON-REACTIVE [place] 427542-02-07 18:22:00 Test Item Value Reference Range Interpretation Comments Hep Signal to Cut-Off (test code = Hep 0.01 1 Signal to Cut-Off) [place] 427542-02-07 18:22:00 Test Item Value Reference Range Interpretation Comments HSV 1 IgG (test code = HSV 1 IgG) 26.60 [place] [address]-02-07 18:22:00 Test Item Value Reference Range Interpretation Comments HSV 2 IgG (test code = HSV 2 IgG) no gt [place] 427542-02-07 18:22:00 Test Item Value Reference Range Interpretation Comments T-Spot.TB (test code = T-Spot.TB) TNP [place] 427542-02-07 18:22:00 Test Item Value Reference Range Interpretation Comments T-Spot Pnl A Neg Ctrl Corrected (test TNP code = T-Spot Pnl A Neg Ctrl Corrected) [facility]evilleEenjxxsWYZAOTFAMX8725-45-72 18:22:00 Test Item Value Reference Range Interpretation Comments T-Spot Pnl B Neg Ctrl Corrected (test TNP code = T-Spot Pnl B Neg Ctrl Corrected) [facility]evilleAuscxlkNGNHIMMMTV1166-94-21 18:22:00 Test Item Value Reference Range Interpretation Comments T-Spot Neg Ctrl (test code = T-Spot Neg TNP Ctrl) [facility]evilleDcqgpgzCIAIMADUEX2259-03-33 18:22:00 Test Item Value Reference Range Interpretation Comments T-Spot Pos Ctrl (test code = T-Spot Pos TNP Ctrl) [facility]evilleUoplxmvAONLEOESOJ4573-37-71 18:22:00 Test Item Value Reference Range Interpretation Comments Toxoplasma IgG (test code = Toxoplasma no gt IgG) [facility]evilleVosfwnyGJNRGIINQW1645-26-06 18:22:00 Test Item Value Reference Range Interpretation Comments Toxoplasma IgM (test code = Toxoplasma no gt IgM) [facility]evilleUlgqgwjOQOHMRABRY6654-55-95 18:22:00 Test Item Value Reference Range Interpretation Comments Treponemal Ab (test code Non-Reactive = Treponemal Ab) 42(04/08/21 12:22 PM) [facility]evilleZrqmpmxXXQUDSAGBB4663-89-66 18:22:00 Test Item Value Reference Range Interpretation Comments Varicella IgG (test code = Varicella 2806.00 IgG) [facility]evilleHgbfryiDAEMKWYOGP0713-23-30 18:22:00 Test Item Value Reference Range Interpretation Comments Mumps IgG (test code = Mumps IgG) no [facility]2022-02-07 18:22:00 Test Item Value Reference Range Interpretation Comments Rubella IgG (test code = Rubella IgG) no [facility]2022-02-07 18:22:00 Test Item Value Reference Range Interpretation Comments Rubeola IgG (test code = Rubeola IgG) 204.00 [facility] CenterCehopwiSWYQKR6887-46-43 18:22:00 Test Item Value Reference Range Interpretation Comments Trig (test code = Trig) 209 [facility] CenterBcnmlvnMHRZLI5454-00-76 18:22:00 Test Item Value Reference Range Interpretation Comments Chol (test code = Chol) 209 [facility] CenterIdciawhGTKPZQ1978-78-23 18:22:00 Test Item Value Reference Range Interpretation Comments HDL (test code = HDL) 33 [facility]emibIBPUDH0550-32-00 18:22:00 Test Item Value Reference Range Interpretation Comments CHD Risk (test code = CHD Risk) 6.33 1 4.00-7.30 [facility] AbtvwnzOBYIWI2814-94-58 18:22:00 Test Item Value Reference Range Interpretation Comments LDL (Calculated) (test code = LDL 134 (Calculated)) [facility]WtmaeiyRPHHGL6262-03-94 18:22:00 Test Item Value Reference Range Interpretation Comments VLDL (test code = VLDL) 42 1 [facility]annPARASITOLOGY - [id number] 18:22:00 Test Item Value Reference Range Interpretation Comments Strongyloides Antibodies (test code NEGATIVE = Strongyloides Antibodies) [facility] PasoannPARATHYROID [id number] 18:22:00 Test Item Value Reference Range Interpretation Comments PTH Intact (test code = PTH Intact) 511.0 18.4-80.1 [facility]annREFERENCE LAB WDVPZOO9000-28-65 18:22:00 Test Item Value Reference Range Interpretation Comments Misc Quest (test code = Misc Quest) REPORT [facility]annSPECIAL KUWGYVYQV6031-06-45 18:22:00 Test Item Value Reference Range Interpretation Comments Nicotine Lvl (test code = Nicotine Lvl) no gt [facility]SPECIAL OQLYJRXQW8954-90-79 18:22:00 Test Item Value Reference Range Interpretation Comments Cotinine Lvl (test code = Cotinine Lvl) no gt [facility]SPE[facility] NTPZQXKLH5225-45-11 18:22:00 Test Item Value Reference Range Interpretation Comments Hgb A1C (test code = Hgb A1C) 5.7 [facility]annSPECIAL OVITHWHRJ3419-50-48 18:22:00 Test Item Value Reference Range Interpretation Comments PSA (test code = PSA) 2.26 [facility]annVIRAL - [id number] 18:22:00 Test Item Value Reference Range Interpretation Comments T cruzi (Chagas) Ab (test code = NONREACTIVE T cruzi (Chagas) Ab) [facility] - [id number] 18:22:00 Test Item Value Reference Range Interpretation Comments W Nile Ab IgG (test code = W Nile Ab no gt IgG) [facility] - [id number] 18:22:00 Test Item Value Reference Range Interpretation Comments W Nile Ab IgM (test code = W Nile Ab no gt IgM) [facility]2021-12-08 15:25:00 Test Item Value Reference Range Interpretation Comments Glucose Lvl (test code = Glucose Lvl) 126 70-99 [place] 498821-12-08 15:25:00 Test Item Value Reference Range Interpretation Comments BUN (test code = BUN) 35 7-22 [place] 498821-12-08 15:25:00 Test Item Value Reference Range Interpretation Comments Creatinine Lvl (test code = Creatinine 5.57 0.50-1.40 Lvl) [place] 498821-12-08 15:25:00 Test Item Value Reference Range Interpretation Comments Sodium Lvl (test code = Sodium Lvl) 141 135-145 [place] 498821-12-08 15:25:00 Test Item Value Reference Range Interpretation Comments Potassium Lvl (test code = Potassium 3.3 3.5-5.1 Lvl) [place] 498821-12-08 15:25:00 Test Item Value Reference Range Interpretation Comments Chloride Lvl (test code = Chloride Lvl) 105 95-109 [place] 498821-12-08 15:25:00 Test Item Value Reference Range Interpretation Comments CO2 (test code = CO2) 28 24-32 [place] 498821-12-08 15:25:00 Test Item Value Reference Range Interpretation Comments Calcium Lvl (test code = Calcium Lvl) 9.1 8.5-10.5 [place] 498821-12-08 15:25:00 Test Item Value Reference Range Interpretation Comments Total Protein (test code = Total 7.2 6.4-8.4 Protein) [place] 498821-12-08 15:25:00 Test Item Value Reference Range Interpretation Comments Albumin Lvl (test code = Albumin Lvl) 3.1 3.5-5.0 [place] 498821-12-08 15:25:00 Test Item Value Reference Range Interpretation Comments ALT (test code = ALT) 15 See_Comment [Auto mated message] The system which ge nerated this result transmit nicko reference range : <=65. The reference range was not used to interpr et this result as adebayo l/abnormal. [place] 498821-12-08 15:25:00 Test Item Value Reference Range Interpretation Comments AST (test code = AST) 10 See_Comment [Auto mated message] The system which ge nerated this result transmit nicko reference range : <=37. The reference range was not used to interpr et this result as adebayo l/abnormal. [facility] [id number] 15:25:00 Test Item Value Reference Range Interpretation Comments Alk Phos (test code = Alk Phos) 55 39-136 [facility] HPQWU0328-23-23 15:25:00 Test Item Value Reference Range Interpretation Comments Bili Total (test code = Bili Total) 0.3 0.2-1.3 [facility] [id number] 15:25:00 Test Item Value Reference Range Interpretation Comments AGAP (test code = AGAP) 11.3 10.0-20.0 [facility] [id number] 15:25:00 Test Item Value Reference Range Interpretation Comments B/C Ratio (test code = B/C Ratio) 6 1 6-25 [facility] [id number] 15:25:00 Test Item Value Reference Range Interpretation Comments Globulin (test code = Globulin) 4.1 2.7-4.2 [facility] [id number] 15:25:00 Test Item Value Reference Range Interpretation Comments A/G Ratio (test code = A/G Ratio) 0.8 1 0.7-1.6 [facility] [id number] 15:25:00 Test Item Value Reference Range Interpretation Comments eGFR (test code = eGFR) 10 [facility] KingwoodMhftzvzJYBKJEFPCX7965-56-88 15:25:00 Test Item Value Reference Range Interpretation Comments WBC (test code = WBC) 8.7 3.7-10.4 [place] [address]-12-08 15:25:00 Test Item Value Reference Range Interpretation Comments RBC (test code = RBC) 3.91 4.70-6.10 [place] 352161-12-08 15:25:00 Test Item Value Reference Range Interpretation Comments Hgb (test code = Hgb) 12.2 14.0-18.0 [facility] KingwoodDgcyzpaUXBPQVKSME2886-87-48 15:25:00 Test Item Value Reference Range Interpretation Comments Hct (test code = Hct) 37.4 42.0-54.0 [place] [address]-12-08 15:25:00 Test Item Value Reference Range Interpretation Comments MCV (test code = MCV) 95.5 80.0-94.0 [place] [address]-12-08 15:25:00 Test Item Value Reference Range Interpretation Comments MCH (test code = MCH) 31.1 pg 27.0-31.0 [place] [address]-12-08 15:25:00 Test Item Value Reference Range Interpretation Comments MCHC (test code = MCHC) 32.6 32.0-36.0 [place] [address]-12-08 15:25:00 Test Item Value Reference Range Interpretation Comments RDW (test code = RDW) 14.9 11.5-14.5 [place] [address]-12-08 15:25:00 Test Item Value Reference Range Interpretation Comments Platelet (test code = Platelet) 229 133-450 [place] 352161-12-08 15:25:00 Test Item Value Reference Range Interpretation Comments MPV (test code = MPV) 8.0 7.4-10.4 [place] 352161-12-08 15:25:00 Test Item Value Reference Range Interpretation Comments Segs (test code = Segs) 69.4 45.0-75.0 [place] 352161-12-08 15:25:00 Test Item Value Reference Range Interpretation Comments Lymphocytes (test code = Lymphocytes) 20.9 20.0-40.0 [place] 352161-12-08 15:25:00 Test Item Value Reference Range Interpretation Comments Monocytes (test code = Monocytes) 5.3 2.0-12.0 [place] [address]-12-08 15:25:00 Test Item Value Reference Range Interpretation Comments Eosinophils (test code = 3.6 See_Comment [A utomated message] The Eosinophils) system which ge nerated this result tra nsmitted reference range : <=4.0. The reference r carlos was not used to int erpret this result as normal/abnormal . [place] [address]-12-08 15:25:00 Test Item Value Reference Range Interpretation Comments Basophils (test code = 0.8 See_Comment [Aut omated message] The Basophils) system which ge nerated this result tra nsmitted reference range : <=1.0. The reference r carlos was not used to int erpret this result as normal/abnormal . [facility]du[facility]ilhXFHLPDEFVI6934-20-[facility] 15:25:00 Test Item Value Reference Range Interpretation Comments Neutrophils # (test code = Neutrophils 6.0 1.5-8.1 #) [facility] HospitalZmfzpfzZMGJOYELRD1172-07-23 15:25:00 Test Item Value Reference Range Interpretation Comments Lymphocytes # (test code = Lymphocytes 1.8 1.0-5.5 #) [facility] HospitalQmwlvowRKCKTMPEAM9208-31-31 15:25:00 Test Item Value Reference Range Interpretation Comments Monocytes # (test code 0.5 See_Comment [Aut omated message] The = Monocytes #) system which generated this result tra nsmitted reference range : <=0.8. The reference r carlos was not used to int erpret this result as normal/abnormal . [facility] HospitalVptczbkESURTPGRNR9971-34-60 15:25:00 Test Item Value Reference Range Interpretation Comments Eosinophils # (test code 0.3 See_Comment [A utomated message] The = Eosinophils #) system whic h generated this result tra nsmitted reference range : <=0.5. The reference r carlos was not used to int erpret this result as normal/abnormal . [facility] HospitalJezctzwAVCXKAHBBJ1186-62-52 15:25:00 Test Item Value Reference Range Interpretation Comments Basophils # (test code 0.1 See_Comment [Aut omated message] The = Basophils #) system which generated this result tra nsmitted reference range : <=0.2. The reference r carlos was not used to int erpret this result as normal/abnormal . [facility]woodIcbqlueZPSCCNKSQQ9693-06-06 15:25:00 Test Item Value Reference Range Interpretation Comments Albumin % (test code = Albumin %) 54.0 55.8-66.1 [place] 427541-12-08 15:25:00 Test Item Value Reference Range Interpretation Comments Alpha 1 % (test code = Alpha 1 %) 6.4 2.8-4.9 [place] 427541-12-08 15:25:00 Test Item Value Reference Range Interpretation Comments Alpha 2 % (test code = Alpha 2 %) 13.4 7.0-11.9 [place] 427541-12-08 15:25:00 Test Item Value Reference Range Interpretation Comments Beta % (test code = Beta %) 11.5 7.8-13.7 [facility]woodEmwtohsTTAMTKJNTD6991-34-10 15:25:00 Test Item Value Reference Range Interpretation Comments Gamma % (test code = Gamma %) 14.7 11.1-18.7 [facility]woodIhflhfkHZFDRGUFOG6830-14-12 15:25:00 Test Item Value Reference Range Interpretation Comments Albumin (SPE) (test code = Albumin 3.89 3.57-5.55 (SPE)) [facility]woodKqgeeddEQCXVTEENI7055-85-24 15:25:00 Test Item Value Reference Range Interpretation Comments Alpha 1 Glob (test code = Alpha 1 Glob) 0.46 0.18-0.41 [facility] KingwoodHitskibWJREYMUHCB9839-90-98 15:25:00 Test Item Value Reference Range Interpretation Comments Alpha 2 Glob (test code = Alpha 2 Glob) 0.96 0.45-1.00 [place] 427541-12-08 15:25:00 Test Item Value Reference Range Interpretation Comments Beta Glob (test code = Beta Glob) 0.83 0.50-1.15 [facility]woodJbsgntdGLTNPJVYEE0327-14-50 15:25:00 Test Item Value Reference Range Interpretation Comments Gamma Glob (test code = Gamma Glob) 1.06 0.71-1.57 [facility] KingwoodEpbeikpRWBQKPRKZI7299-24-74 15:25:00 Test Item Value Reference Range Interpretation Comments Tot Prot (SPE) (test code = Tot Prot 7.2 6.4-8.4 (SPE)) [facility]evilleTepfmeaQQEIHLTBAK2284-92-91 15:25:00 Test Item Value Reference Range Interpretation [...] and concur with the resident's interpretation. CPT 96436-PZ [facility] KingwoodYlrhvnqHNXNUTKRRA1527-75-64 15:25:00 Test Item Value Reference Range Interpretation Comments KAREN Ser Pattern A distinct monoclonal (test code = AKREN Ser band is present in the Pattern) IgM izabella with a corresponding distinct band in the kappa light chain izabella. The polyclonal gamma globulin background is preserved in all lanes. [place] 427541-12-08 15:25:00 Test Item Value Reference Range Interpretation [...] and concur with the resident's interpretation. CPT 47823-XD [place] 427541-12-08 15:25:00 Test Item Value Reference Range Interpretation Comments [place] Free Light Chains (test code = 107.5 [place] Free Light Chains) [place] 427541-12-08 15:25:00 Test Item Value Reference Range Interpretation Comments Lambda Free Light Chains (test code = 68.4 Lambda Free Light Chains) [place] 427541-12-08 15:25:00 Test Item Value Reference Range Interpretation Comments [place]/Lambda Free Light Chains Ratio 1.57 1 (test code = [place]/Lambda Free Light Chains Ratio) [place] 498821-12-08 15:25:00 Test Item Value Reference Range Interpretation Comments Glucose Lvl (test code = Glucose Lvl) 126 70-99 [place] 498821-12-08 15:25:00 Test Item Value Reference Range Interpretation Comments BUN (test code = BUN) 35 7-22 [place] 498821-12-08 15:25:00 Test Item Value Reference Range Interpretation Comments Creatinine Lvl (test code = Creatinine 5.57 0.50-1.40 Lvl) [place] 498821-12-08 15:25:00 Test Item Value Reference Range Interpretation Comments Sodium Lvl (test code = Sodium Lvl) 141 135-145 [place] 498821-12-08 15:25:00 Test Item Value Reference Range Interpretation Comments Potassium Lvl (test code = Potassium 3.3 3.5-5.1 Lvl) [place] 498821-12-08 15:25:00 Test Item Value Reference Range Interpretation Comments Chloride Lvl (test code = Chloride Lvl) 105 95-109 [facility] OLCCP4178-76-06 15:25:00 Test Item Value Reference Range Interpretation Comments CO2 (test code = CO2) 28 24-32 [facility] PGMRT7634-11-02 15:25:00 Test Item Value Reference Range Interpretation Comments Calcium Lvl (test code = Calcium Lvl) 9.1 8.5-10.5 [facility] FNAVS7949-78-59 15:25:00 Test Item Value Reference Range Interpretation Comments Total Protein (test code = Total 7.2 6.4-8.4 Protein) [facility] IMKDP0840-21-15 15:25:00 Test Item Value Reference Range Interpretation Comments Albumin Lvl (test code = Albumin Lvl) 3.1 3.5-5.0 [facility] KPEAE3529-21-85 15:25:00 Test Item Value Reference Range Interpretation Comments ALT (test code = ALT) 15 See_Comment [Auto mated message] The system which ge nerated this result transmit nicko reference range : <=65. The reference range was not used to interpr et this result as adebayo l/abnormal. [facility] NFDRM9054-76-89 15:25:00 Test Item Value Reference Range Interpretation Comments AST (test code = AST) 10 See_Comment [Auto mated message] The system which ge nerated this result transmit nicko reference range : <=37. The reference range was not used to interpr et this result as adebayo l/abnormal. [facility] [id number] 15:25:00 Test Item Value Reference Range Interpretation Comments Alk Phos (test code = Alk Phos) 55 39-136 [facility] YZFIZ6184-95-67 15:25:00 Test Item Value Reference Range Interpretation Comments Bili Total (test code = Bili Total) 0.3 0.2-1.3 [facility] WNSVJ5314-64-81 15:25:00 Test Item Value Reference Range Interpretation Comments AGAP (test code = AGAP) 11.3 10.0-20.0 [facility] [id number] 15:25:00 Test Item Value Reference Range Interpretation Comments B/C Ratio (test code = B/C Ratio) 6 1 6-[address] [facility]2021-12-08 15:25:00 Test Item Value Reference Range Interpretation Comments Globulin (test code = Globulin) 4.1 2.7-4.2 [place] 498821-12-08 15:25:00 Test Item Value Reference Range Interpretation Comments A/G Ratio (test code = A/G Ratio) 0.8 1 0.7-1.6 [place] 498821-12-08 15:25:00 Test Item Value Reference Range Interpretation Comments eGFR (test code = eGFR) 10 [facility] HospitalIghhcigZFMSOSRUAO2798-69-56 15:25:00 Test Item Value Reference Range Interpretation Comments WBC (test code = WBC) 8.7 3.7-10.4 [place] 352161-12-08 15:25:00 Test Item Value Reference Range Interpretation Comments RBC (test code = RBC) 3.91 4.70-6.10 [place] 352161-12-08 15:25:00 Test Item Value Reference Range Interpretation Comments Hgb (test code = Hgb) 12.2 14.0-18.0 [place] 352161-12-08 15:25:00 Test Item Value Reference Range Interpretation Comments Hct (test code = Hct) 37.4 42.0-54.0 [place] 352161-12-08 15:25:00 Test Item Value Reference Range Interpretation Comments MCV (test code = MCV) 95.5 80.0-94.0 [place] 352161-12-08 15:25:00 Test Item Value Reference Range Interpretation Comments MCH (test code = MCH) 31.1 pg 27.0-31.0 [place] 352161-12-08 15:25:00 Test Item Value Reference Range Interpretation Comments MCHC (test code = MCHC) 32.6 32.0-36.0 [place] 352161-12-08 15:25:00 Test Item Value Reference Range Interpretation Comments RDW (test code = RDW) 14.9 11.5-14.5 [place] 352161-12-08 15:25:00 Test Item Value Reference Range Interpretation Comments Platelet (test code = Platelet) 229 133-450 [facility] HospitalOuutxafFKUDECVSTD6816-31-30 15:25:00 Test Item Value Reference Range Interpretation Comments MPV (test code = MPV) 8.0 7.4-10.4 [place] 352161-12-08 15:25:00 Test Item Value Reference Range Interpretation Comments Segs (test code = Segs) 69.4 45.0-75.0 [place] 352161-12-08 15:25:00 Test Item Value Reference Range Interpretation Comments Lymphocytes (test code = Lymphocytes) 20.9 20.0-40.0 [place] 352161-12-08 15:25:00 Test Item Value Reference Range Interpretation Comments Monocytes (test code = Monocytes) 5.3 2.0-12.0 [place] 352161-12-08 15:25:00 Test Item Value Reference Range Interpretation Comments Eosinophils (test code = 3.6 See_Comment [A utomated message] The Eosinophils) system which ge nerated this result tra nsmitted reference range : <=4.0. The reference r carlos was not used to int erpret this result as normal/abnormal . [place] 352161-12-08 15:25:00 Test Item Value Reference Range Interpretation Comments Basophils (test code = 0.8 See_Comment [Aut omated message] The Basophils) system which ge nerated this result tra nsmitted reference range : <=1.0. The reference r carlos was not used to int erpret this result as normal/abnormal . [place] 352161-12-08 15:25:00 Test Item Value Reference Range Interpretation Comments Neutrophils # (test code = Neutrophils 6.0 1.5-8.1 #) [place] 352161-12-08 15:25:00 Test Item Value Reference Range Interpretation Comments Lymphocytes # (test code = Lymphocytes 1.8 1.0-5.5 #) [place] 352161-12-08 15:25:00 Test Item Value Reference Range Interpretation Comments Monocytes # (test code 0.5 See_Comment [Aut omated message] The = Monocytes #) system which generated this result tra nsmitted reference range : <=0.8. The reference r carlos was not used to int erpret this result as normal/abnormal . [place] 352161-12-08 15:25:00 Test Item Value Reference Range Interpretation Comments Eosinophils # (test code 0.3 See_Comment [A utomated message] The = Eosinophils #) system whic h generated this result tra nsmitted reference range : <=0.5. The reference r carlos was not used to int erpret this result as normal/abnormal . [facility] HospitalInpscktRCXUSFFSKG2756-40-65 15:25:00 Test Item Value Reference Range Interpretation Comments Basophils # (test code 0.1 See_Comment [Aut omated message] The = Basophils #) system which generated this result tra nsmitted reference range : <=0.2. The reference r carlos was not used to int erpret this result as normal/abnormal . [facility]woodMsssvthQRYQXGRXIG9412-49-78 15:25:00 Test Item Value Reference Range Interpretation Comments Albumin % (test code = Albumin %) 54.0 55.8-66.1 [facility] KingwoodRckuzkuZPOUVQLKSC0807-95-11 15:25:00 Test Item Value Reference Range Interpretation Comments Alpha 1 % (test code = Alpha 1 %) 6.4 2.8-4.9 [facility] KingwoodBszmtvsKJIBXRMYST2173-64-58 15:25:00 Test Item Value Reference Range Interpretation Comments Alpha 2 % (test code = Alpha 2 %) 13.4 7.0-11.9 [facility] KingwoodGrapozcIVYUEKZYSC2858-30-53 15:25:00 Test Item Value Reference Range Interpretation Comments Beta % (test code = Beta %) 11.5 7.8-13.7 [facility] KingwoodMkqaisxEZRXNMRBWR5611-36-47 15:25:00 Test Item Value Reference Range Interpretation Comments Gamma % (test code = Gamma %) 14.7 11.1-18.7 [facility] KingwoodXzpmayaVCVPZMAKGB7786-27-05 15:25:00 Test Item Value Reference Range Interpretation Comments Albumin (SPE) (test code = Albumin 3.89 3.57-5.55 (SPE)) [facility]woodHepgvpwWMCMVNXIRD7729-46-41 15:25:00 Test Item Value Reference Range Interpretation Comments Alpha 1 Glob (test code = Alpha 1 Glob) 0.46 0.18-0.41 [facility]woodIgamzkkZAZUGHHDFU7396-84-82 15:25:00 Test Item Value Reference Range Interpretation Comments Alpha 2 Glob (test code = Alpha 2 Glob) 0.96 0.45-1.00 [facility] PasoZsbbyyxBYARNBKTAH8385-52-43 15:25:00 Test Item Value Reference Range Interpretation Comments Beta Glob (test code = Beta Glob) 0.83 0.50-1.15 [facility]XqsvmfzBNASITEURH6972-58-92 15:25:00 Test Item Value Reference Range Interpretation Comments Gamma Glob (test code = Gamma Glob) 1.06 0.71-1.57 [facility]woodIoyruvlDRSVEBSAFL3593-43-32 15:25:00 Test Item Value Reference Range Interpretation Comments Tot Prot (SPE) (test code = Tot Prot 7.2 6.4-8.4 (SPE)) [facility]evilleVfkboiwCISABTFUUZ5046-80-26 15:25:00 Test Item Value Reference Range Interpretation [...] results and concur with the resident's interpretation. [facility] [id number] [facility] [employer] [facility] 15:25:00 Test Item Value Reference Range Interpretation Comments KAREN Ser Pattern A distinct monoclonal (test code = KAREN Ser band is present in the Pattern) IgM izabella with a corresponding distinct band in the kappa light chain izabella. The polyclonal gamma globulin background is preserved in all lanes. [facility]AhfjfbcCJULWKGJIW2466-27-67 15:25:00 Test Item Value Reference Range Interpretation [...] and concur with the resident's interpretation. CPT 27199-CA [facility]evilleMwvpltgMSHRYPONCS6769-69-20 15:25:00 Test Item Value Reference Range Interpretation Comments [place] Free [place] Chains (test code = 107.5 [place]ains) [place] 427541-12-08 15:25:00 Test Item Value Reference Range Interpretation Comments Lambda Free Light Chains (test code = 68.4 Lambda Free Light Chains) [facility]LqbdokwVMJLNVCKXI3700-[facility]-30 15:25:00 Test Item Value Reference Range Interpretation Comments [place]/Lambda Free Light Chains Ratio 1.57 1 (test code = [place]/Lambda Free Light Chains Ratio) [place] [address]-12-08 15:25:00 Test Item Value Reference Range Interpretation Comments Glucose Lvl (test code = Glucose Lvl) 126 70-99 [place] 498821-12-08 15:25:00 Test Item Value Reference Range Interpretation Comments BUN (test code = BUN) 35 7-22 [place] 498821-12-08 15:25:00 Test Item Value Reference Range Interpretation Comments Creatinine Lvl (test code = Creatinine 5.57 0.50-1.40 Lvl) [place] 498821-12-08 15:25:00 Test Item Value Reference Range Interpretation Comments Sodium Lvl (test code = Sodium Lvl) 141 135-145 [place] 498821-12-08 15:25:00 Test Item Value Reference Range Interpretation Comments Potassium Lvl (test code = Potassium 3.3 3.5-5.1 Lvl) [place] 498821-12-08 15:25:00 Test Item Value Reference Range Interpretation Comments Chloride Lvl (test code = Chloride Lvl) 105 95-109 [place] 498821-12-08 15:25:00 Test Item Value Reference Range Interpretation Comments CO2 (test code = CO2) 28 24-32 [place] 498821-12-08 15:25:00 Test Item Value Reference Range Interpretation Comments Calcium Lvl (test code = Calcium Lvl) 9.1 8.5-10.5 [place] 498821-12-08 15:25:00 Test Item Value Reference Range Interpretation Comments Total Protein (test code = Total 7.2 6.4-8.4 Protein) [place] 498821-12-08 15:25:00 Test Item Value Reference Range Interpretation Comments Albumin Lvl (test code = Albumin Lvl) 3.1 3.5-5.0 [place] 498821-12-08 15:25:00 Test Item Value Reference Range Interpretation Comments ALT (test code = ALT) 15 See_Comment [Auto mated message] The system which ge nerated this result transmit nicko reference range : <=65. The reference range was not used to interpr et this result as adebayo l/abnormal. [facility] [id number] 15:25:00 Test Item Value Reference Range Interpretation Comments AST (test code = AST) 10 See_Comment [Auto mated message] The system which ge nerated this result transmit nicko reference range : <=37. The reference range was not used to interpr et this result as adebayo l/abnormal. [facility] [id number] 15:25:00 Test Item Value Reference Range Interpretation Comments Alk Phos (test code = Alk Phos) 55 39-136 [facility] [id number] 15:25:00 Test Item Value Reference Range Interpretation Comments Bili Total (test code = Bili Total) 0.3 0.2-1.3 [facility] [id number] 15:25:00 Test Item Value Reference Range Interpretation Comments AGAP (test code = AGAP) 11.3 10.0-20.0 [facility] [id number] 15:25:00 Test Item Value Reference Range Interpretation Comments B/C Ratio (test code = B/C Ratio) 6 1 6-25 [facility] [id number] 15:25:00 Test Item Value Reference Range Interpretation Comments Globulin (test code = Globulin) 4.1 2.7-4.2 [facility] [id number] 15:25:00 Test Item Value Reference Range Interpretation Comments A/G Ratio (test code = A/G Ratio) 0.8 1 0.7-1.6 [facility] [id number] 15:25:00 Test Item Value Reference Range Interpretation Comments eGFR (test code = eGFR) 10 [facility] PasoFacjmesPJUPHZVTTT7976-32-17 15:25:00 Test Item Value Reference Range Interpretation Comments WBC (test code = WBC) 8.7 3.7-10.4 [place] 352161-12-08 15:25:00 Test Item Value Reference Range Interpretation Comments RBC (test code = RBC) 3.91 4.70-6.10 [facility]woodUoimfwjLLYHFROBAR5950-76-56 15:25:00 Test Item Value Reference Range Interpretation Comments Hgb (test code = Hgb) 12.2 14.0-18.0 [place] 352161-12-08 15:25:00 Test Item Value Reference Range Interpretation Comments Hct (test code = Hct) 37.4 42.0-54.0 [place] 352161-12-08 15:25:00 Test Item Value Reference Range Interpretation Comments MCV (test code = MCV) 95.5 80.0-94.0 [place] 352161-12-08 15:25:00 Test Item Value Reference Range Interpretation Comments MCH (test code = MCH) 31.1 pg 27.0-31.0 [place] 352161-12-08 15:25:00 Test Item Value Reference Range Interpretation Comments MCHC (test code = MCHC) 32.6 32.0-36.0 [place] 352161-12-08 15:25:00 Test Item Value Reference Range Interpretation Comments RDW (test code = RDW) 14.9 11.5-14.5 [facility]GhwoycfOXQIFPXCZY7357-55-43 15:25:00 Test Item Value Reference Range Interpretation Comments Platelet (test code = Platelet) 229 133-450 [facility] HospitalYrrctarWCXFIBOKHA4839-05-11 15:25:00 Test Item Value Reference Range Interpretation Comments MPV (test code = MPV) 8.0 7.4-10.4 [facility] HospitalHueergiKBCEVQGMJN9747-12-33 15:25:00 Test Item Value Reference Range Interpretation Comments Segs (test code = Segs) 69.4 45.0-75.0 [facility] HospitalIvmvibzHCCFURHFHF9843-17-30 15:25:00 Test Item Value Reference Range Interpretation Comments Lymphocytes (test code = Lymphocytes) 20.9 20.0-40.0 [place] 352161-12-08 15:25:00 Test Item Value Reference Range Interpretation Comments Monocytes (test code = Monocytes) 5.3 2.0-12.0 [place] [address]-12-08 15:25:00 Test Item Value Reference Range Interpretation Comments Eosinophils (test code = 3.6 See_Comment [A utomated message] The Eosinophils) system which ge nerated this result tra nsmitted reference range : <=4.0. The reference r carlos was not used to int erpret this result as normal/abnormal . [facility] HospitalDlajqosRSHZQZJWFC6982-49-90 15:25:00 Test Item Value Reference Range Interpretation Comments Basophils (test code = 0.8 See_Comment [Aut omated message] The Basophils) system which ge nerated this result tra nsmitted reference range : <=1.0. The reference r carlos was not used to int erpret this result as normal/abnormal . [facility] HospitalWlwdkxaOJWSEEMPIU9697-30-20 15:25:00 Test Item Value Reference Range Interpretation Comments Neutrophils # (test code = Neutrophils 6.0 1.5-8.1 #) [facility] HospitalOoxrcspVDBRUWFJIK3516-56-54 15:25:00 Test Item Value Reference Range Interpretation Comments Lymphocytes # (test code = Lymphocytes 1.8 1.0-5.5 #) [facility] HospitalZmwqtycPSBKKGXOKB6231-70-84 15:25:00 Test Item Value Reference Range Interpretation Comments Monocytes # (test code 0.5 See_Comment [Aut omated message] The = Monocytes #) system which generated this result tra nsmitted reference range : <=0.8. The reference r carlos was not used to int erpret this result as normal/abnormal . [facility] HospitalQhcgvfbQUWWXVLUNW7549-17-27 15:25:00 Test Item Value Reference Range Interpretation Comments Eosinophils # (test code 0.3 See_Comment [A utomated message] The = Eosinophils #) system whic h generated this result tra nsmitted reference range : <=0.5. The reference r carlos was not used to int erpret this result as normal/abnormal . [facility] HospitalZzorzleALJCQBNPCL3763-88-08 15:25:00 Test Item Value Reference Range Interpretation Comments Basophils # (test code 0.1 See_Comment [Aut omated message] The = Basophils #) system which generated this result tra nsmitted reference range : <=0.2. The reference r carlos was not used to int erpret this result as normal/abnormal . [facility]evilleFluvjooJGGCFYZEBX9772-55-75 15:25:00 Test Item Value Reference Range Interpretation Comments Albumin % (test code = Albumin %) 54.0 55.8-66.1 [facility]evilleIgamaobNOPQOSQJLR4812-08-23 15:25:00 Test Item Value Reference Range Interpretation Comments Alpha 1 % (test code = Alpha 1 %) 6.4 2.8-4.9 [facility]woodIiwuulqDGWTWARKQZ7053-85-87 15:25:00 Test Item Value Reference Range Interpretation Comments Alpha 2 % (test code = Alpha 2 %) 13.4 7.0-11.9 [place] 427541-12-08 15:25:00 Test Item Value Reference Range Interpretation Comments Beta % (test code = Beta %) 11.5 7.8-13.7 [place] 427541-12-08 15:25:00 Test Item Value Reference Range Interpretation Comments Gamma % (test code = Gamma %) 14.7 11.1-18.7 [facility]woodTzxgbpkCRTRZGPUNC5842-51-77 15:25:00 Test Item Value Reference Range Interpretation Comments Albumin (SPE) (test code = Albumin 3.89 3.57-5.55 (SPE)) [place] 427541-12-08 15:25:00 Test Item Value Reference Range Interpretation Comments Alpha 1 Glob (test code = Alpha 1 Glob) 0.46 0.18-0.41 [place] 427541-12-08 15:25:00 Test Item Value Reference Range Interpretation Comments Alpha 2 Glob (test code = Alpha 2 Glob) 0.96 0.45-1.00 [place] 427541-12-08 15:25:00 Test Item Value Reference Range Interpretation Comments Beta Glob (test code = Beta Glob) 0.83 0.50-1.15 [place] 427541-12-08 15:25:00 Test Item Value Reference Range Interpretation Comments Gamma Glob (test code = Gamma Glob) 1.06 0.71-1.57 [place] 427541-12-08 15:25:00 Test Item Value Reference Range Interpretation Comments Tot Prot (SPE) (test code = Tot Prot 7.2 6.4-8.4 (SPE)) [facility]evilleUkvzmfwQQDGELAQUQ4401-66-83 15:25:00 Test Item Value Reference Range Interpretation [...] and concur with the resident's interpretation. CPT 18862[facility] CenterKfhrqrxXEFDAKUFAR0295-88-82 15:25:00 Test Item Value Reference Range Interpretation Comments KAREN Ser Pattern A distinct monoclonal (test code = KAREN Ser band is present in the Pattern) IgM izabella with a corresponding distinct band in the kappa light chain izabella. The polyclonal gamma globulin background is preserved in all lanes. [facility]woodKmwrnnpUHXZCMXVTK3847-13-78 15:25:00 Test Item Value Reference Range Interpretation [...] results and concur with the resident's interpretation. [facility] [address]-FVG[facility] CenterIopazgsYJIXUVVRVT0344-13-64 15:25:00 Test Item Value Reference Range Interpretation Comments [place] Free [place] Chains (test code = 107.5 [place] Free [place] Chains) [facility]evilleFrouzkjBJUIMPSAPN4804-05-69 15:25:00 Test Item Value Reference Range Interpretation Comments Lambda Free Light Chains (test code = 68.4 Lambda Free Light Chains) [facility] BeevilleCodeuedFQMXSFPSUH4730-45-63 15:25:00 Test Item Value Reference Range Interpretation Comments [place]/Lambda Free Light Chains Ratio 1.57 1 (test code = [place]/Lambda Free Light Chains Ratio) [place] [address] qlja5723-56-03 03:58:06 Test Item Value Reference Range Interpretation Comments Ventricular rate (test code = 253) Atrial rate (test code = 255) [place] interval (test code = 266) QRSD interval (test code = 260) QT interval (test code = 264) QTC interval (test code = 265) P axis 1 (test code = 267) QRS axis 1 (test code = 268) T wave axis (test code = 270) EKG impression (test code = 273) [facility] Pjszryem0500-31-62 18:57:51EXAMINATION: CT LUMBAR SPINE WO CONTRAST COMPARISON: [...] read back September 19, 2020 at 1357 hours.[id number] CenterXR Chest 1 Vw Dbezdhjf7765-68-53 18:15:14EXAMINATION: XR CHEST 1 VW PORTABLE CLINICAL [...] visualized upper abdomen is within normal limits. [id number] ED Preliminary Interpretation - Not an Cquql5725-02-85 17:27:13Maryan Oneill MD 09/19/2020 6:41 [facility] Preliminary Interpretation - Not an OrderPerformed by: Maryan Oneill MDAuthorized by: Maryan Oneill MD ECG reviewed by ED Physician in the absence of a work ticket distributor: yes Interpretation: Interpretation: non- specific Rate: ECG rate: 71 ECG rate assessment: normal Rhythm: Rhythm: sinus rhythm Ectopy: Ectopy: none QRS: QRS axis: Normal QRS intervals: NormalConduction: Conduction: abnormal Abnormal conduction: 1st degree ST segments: ST segments:NormalT waves: T waves: non-specificCT Abdomen Pelvis Wo Pnyflsnz8221-70-60 02:14:01EXAMINATION: CT ABDOMEN PELVIS WO CONTRAST CLINICAL [...] disease with mild ascites.2.Right pulmonary hamartoma.3.Aortobiiliac stent.[id number]2021-05-25 06:53:48 Test Item Value Reference Range Interpretation Comments Urine culture (test code = SEE COMMENT [id number]) [facility]2021-05-24 16:20:31Isabelle eWtzel MD 07/23/2020 11:21 AMAirway Date/Time: 07/23/2020 11:20 [...] RSI: No Number of Attempts at Approach: 8Irsifk6967-08-26 01:07:00MarMegan mckinnon CRNA 07/11/2020 6:28 PMAirway Date/Time: 07/11/2020 8:07 PM Location: OR Performed by: ACCOUNT ANALYST/AA and anesthesiologistAnesthesiologist: Serge Tilley, MDResident/ACCOUNT ANALYST/AA: Megan Felix CRNAAuthorized by: Megan Felix CRNA [...] of Attempts at Approach: 1XR Abdomen 1 [id number] 01:32:09EXAMINATION: XR ABDOMEN 1 VW CLINICAL HISTORY: Abdominal pain and PD Cath COMPARISON: None. FINDINGS: There is an aortic stent graft. Opaque catheter overlies the lower abdomen with the coiled portion overlying the left iliac wing. There is increase in the amount of gas and feces in the colon. IMPRESSION:As above [facility]-[id number] Interface, Radiology Results Incoming - 07/10/2020 8:35 PM CDT EXAMINATION: XR ABDOMEN 1 VWCLINICAL HISTORY: Abdominal pain and PD CathCOMPARISON: None.FINDINGS:There is an aortic stent graft.Opaque catheter overlies the lower abdomen with the coiled portion overlying the left iliac wing.There is increase in the amount of gas and feces in the colon.IMPRESSION:As aboveBL[facility]-[id number] Sol Medical Center [id number] 12:59:00 Test Item Value Reference Range Interpretation Comments Ferritin Lvl (test code = Ferritin Lvl) 228 22-[address] [facility] [id number] 12:59:00 Test Item Value Reference Range Interpretation Comments Iron (test code = Iron) 33 [place] 327861-02-03 12:59:00 Test Item Value Reference Range Interpretation Comments TIBC (test code = TIBC) 262 [place] 327861-02-03 12:59:00 Test Item Value Reference Range Interpretation Comments % Satur Fe (test code = % Satur Fe) 13 [place] 498821-02-03 12:59:00 Test Item Value Reference Range Interpretation Comments Creatinine Lvl (test code = Creatinine 5.71 0.50-1.40 Lvl) [place] 498821-02-03 12:59:00 Test Item Value Reference Range Interpretation Comments eGFR (test code = eGFR) 10 [place] 498821-02-03 12:59:00 Test Item Value Reference Range Interpretation Comments Glucose Lvl (test code = Glucose Lvl) 72 70-99 [place] 498821-02-03 12:59:00 Test Item Value Reference Range Interpretation Comments BUN (test code = BUN) 47 7-22 [place] 498821-02-03 12:59:00 Test Item Value Reference Range Interpretation Comments Creatinine Lvl (test code = Creatinine 5.59 0.50-1.40 Lvl) [place] 498821-02-03 12:59:00 Test Item Value Reference Range Interpretation Comments Sodium Lvl (test code = Sodium Lvl) 143 135-145 [place] 498821-02-03 12:59:00 Test Item Value Reference Range Interpretation Comments Potassium Lvl (test code = Potassium 4.0 3.5-5.1 Lvl) [place] 498821-02-03 12:59:00 Test Item Value Reference Range Interpretation Comments Chloride Lvl (test code = Chloride Lvl) 110 95-109 [place] 498821-02-03 12:59:00 Test Item Value Reference Range Interpretation Comments CO2 (test code = CO2) 24 24-32 [place] 498821-02-03 12:59:00 Test Item Value Reference Range Interpretation Comments Calcium Lvl (test code = Calcium Lvl) 8.7 8.5-10.5 [place] 498821-02-03 12:59:00 Test Item Value Reference Range Interpretation Comments Total Protein (test code = Total 7.4 6.4-8.4 Protein) [facility] [id number] 12:59:00 Test Item Value Reference Range Interpretation Comments Albumin Lvl (test code = Albumin Lvl) 3.5 3.5-5.0 [facility] [id number] 12:59:00 Test Item Value Reference Range Interpretation Comments ALT (test code = ALT) 12 See_Comment [Auto mated message] The system which ge nerated this result transmit nicko reference range : <=65. The reference range was not used to interpr et this result as adebayo l/abnormal. [facility] [id number] 12:59:00 Test Item Value Reference Range Interpretation Comments AST (test code = AST) 14 See_Comment [Auto mated message] The system which ge nerated this result transmit nicko reference range : <=37. The reference range was not used to interpr et this result as adebayo l/abnormal. [facility] [id number] 12:59:00 Test Item Value Reference Range Interpretation Comments Alk Phos (test code = Alk Phos) 58 39-136 [facility] [id number] 12:59:00 Test Item Value Reference Range Interpretation Comments Bili Total (test code = Bili Total) 0.3 0.2-1.3 [facility] [id number] 12:59:00 Test Item Value Reference Range Interpretation Comments AGAP (test code = AGAP) 13.0 10.0-20.0 [facility] [id number] 12:59:00 Test Item Value Reference Range Interpretation Comments B/C Ratio (test code = B/C Ratio) 8 1 6-25 [facility] [id number] 12:59:00 Test Item Value Reference Range Interpretation Comments Globulin (test code = Globulin) 3.9 2.7-4.2 [facility] [id number] 12:59:00 Test Item Value Reference Range Interpretation Comments A/G Ratio (test code = A/G Ratio) 0.9 1 0.7-1.6 [facility] [id number] 12:59:00 Test Item Value Reference Range Interpretation Comments eGFR (test code = eGFR) 10 [facility] [id number] 12:59:00 Test Item Value Reference Range Interpretation Comments Magnesium Lvl (test code = Magnesium 1.5 1.8-2.4 Lvl) [facility] [id number] 12:59:00 Test Item Value Reference Range Interpretation Comments Phosphorus (test code = Phosphorus) 5.0 2.5-4.5 [facility] [id number] 12:59:00 Test Item Value Reference Range Interpretation Comments Uric Acid (test code = Uric Acid) 5.8 3.8-8.0 [facility] [id number] 12:59:00 Test Item Value Reference Range Interpretation Comments Vitamin D, 25-OH, Total (test code = 33 Vitamin D, 25-OH, Total) [facility]DR[facility] [id number] 12:59:00 Test Item Value Reference Range Interpretation Comments Phencyclidine Scr (test code = Negative Phencyclidine Scr) [facility]Eng[facility] [id number] 12:59:00 Test Item Value Reference Range Interpretation Comments Kaitlin Scr (test code = Kaitlin Scr) Negative [facility] [id number] 12:59:00 Test Item Value Reference Range Interpretation Comments Cannab Scr (test code = Cannab Scr) Negative [facility] [id number] 12:59:00 Test Item Value Reference Range Interpretation Comments Methadone Scr (test code = Methadone Negative Scr) [facility] [id number] 12:59:00 Test Item Value Reference Range Interpretation Comments Cocaine Scr (test code = Cocaine Negative Scr) [facility] [id number] 12:59:00 Test Item Value Reference Range Interpretation Comments Benzodiaz Scr (test code = Benzodiaz Negative Scr) [facility] [id number] 12:59:00 Test Item Value Reference Range Interpretation Comments Amph Scr (test code = Amph Scr) Negative [facility] [id number] 12:59:00 Test Item Value Reference Range Interpretation Comments Opiate Scr (test code = Opiate Scr) Negative [facility] [id number] 12:59:00 Test Item Value Reference Range Interpretation Comments 6-Acetylmor Scr (test code = Negative 6-Acetylmor Scr) [facility]woodFUN[facility] - [id number] 12:59:00 Test Item Value Reference Range Interpretation Comments Cryptococcal Ag (test Negative (04/04/20 code = Cryptococcal Ag) 6:59 AM) [facility]2021-02-03 12:59:00 Test Item Value Reference Range Interpretation Comments Histo Yeast Ab (test code = Histo Yeast <1:8 Ab) [facility]2021-02-03 12:59:00 Test Item Value Reference Range Interpretation Comments Histo mycel Ab (test code = Histo mycel <1:8 Ab) [facility]2021-02-03 12:59:00 Test Item Value Reference Range Interpretation Comments Blastomyces Ab (test code = Negative Blastomyces Ab) [place] 915221-02-03 12:59:00 Test Item Value Reference Range Interpretation Comments Coccid Ab IgM (test code = Coccid Ab NEGATIVE IgM) [place] 915221-02-03 12:59:00 Test Item Value Reference Range Interpretation Comments Coccid Ab IgG (test code = Coccid Ab NEGATIVE IgG) [place] 352161-02-03 12:59:00 Test Item Value Reference Range Interpretation Comments Segs (test code = Segs) 65.6 45.0-75.0 [address]02-03 12:59:00 Test Item Value Reference Range Interpretation Comments Lymphocytes (test code = Lymphocytes) 21.6 20.0-40.0 [place] [address]-02-03 12:59:00 Test Item Value Reference Range Interpretation Comments Monocytes (test code = Monocytes) 8.5 2.0-12.0 [place] [address]-02-03 12:59:00 Test Item Value Reference Range Interpretation Comments Eosinophils (test code = 3.5 See_Comment [A utomated message] The Eosinophils) system which ge nerated this result tra nsmitted reference range : <=4.0. The reference r carlos was not used to int erpret this result as normal/abnormal . [address]02-03 12:59:00 Test Item Value Reference Range Interpretation Comments Basophils (test code = 0.8 See_Comment [Aut omated message] The Basophils) system which ge nerated this result tra nsmitted reference range : <=1.0. The reference r carlos was not used to int erpret this result as normal/abnormal . [place] 352161-02-03 12:59:00 Test Item Value Reference Range Interpretation Comments Neutrophils # (test code = Neutrophils 5.1 1.5-8.1 #) [place] 352161-02-03 12:59:00 Test Item Value Reference Range Interpretation Comments Lymphocytes # (test code = Lymphocytes 1.7 1.0-5.5 #) [place] 352161-02-03 12:59:00 Test Item Value Reference Range Interpretation Comments Monocytes # (test code 0.7 See_Comment [Aut omated message] The = Monocytes #) system which generated this result tra nsmitted reference range : <=0.8. The reference r carlos was not used to int erpret this result as normal/abnormal . [place] 352161-02-03 12:59:00 Test Item Value Reference Range Interpretation Comments Eosinophils # (test code 0.3 See_Comment [A utomated message] The = Eosinophils #) system whic h generated this result tra nsmitted reference range : <=0.5. The reference r carlos was not used to int erpret this result as normal/abnormal . [place] 352161-02-03 12:59:00 Test Item Value Reference Range Interpretation Comments Basophils # (test code 0.1 See_Comment [Aut omated message] The = Basophils #) system which generated this result tra nsmitted reference range : <=0.2. The reference r carlos was not used to int erpret this result as normal/abnormal . [place] 352161-02-03 12:59:00 Test Item Value Reference Range Interpretation Comments PT (test code = PT) 12.8 s 12.0-14.7 [place] 352161-02-03 12:59:00 Test Item Value Reference Range Interpretation Comments INR (test code = INR) 0.97 1 0.85-1.17 [place] 352161-02-03 12:59:00 Test Item Value Reference Range Interpretation Comments PTT (test code = PTT) 32.2 s 22.9-35.8 [place] 352161-02-03 12:59:00 Test Item Value Reference Range Interpretation Comments WBC (test code = WBC) 7.8 3.7-10.4 [facility]M2128[facility] 12:59:00 Test Item Value Reference Range Interpretation Comments RBC (test code = RBC) 3.89 4.70-6.10 [facility]JxjecmkZGHAYWFGWY1260-25-32 12:59:00 Test Item Value Reference Range Interpretation Comments Hgb (test code = Hgb) 11.5 14.0-18.0 [place] 352161-02-03 12:59:00 Test Item Value Reference Range Interpretation Comments Hct (test code = Hct) 35.9 42.0-54.0 [place] 352161-02-03 12:59:00 Test Item Value Reference Range Interpretation Comments MCV (test code = MCV) 92.5 80.0-94.0 [place] 352161-02-03 12:59:00 Test Item Value Reference Range Interpretation Comments MCH (test code = MCH) 29.5 pg 27.0-31.0 [place] 352161-02-03 12:59:00 Test Item Value Reference Range Interpretation Comments MCHC (test code = MCHC) 31.9 32.0-36.0 [facility] HospitalJibklxhPLNQJJUSTQ9634-92-28 12:59:00 Test Item Value Reference Range Interpretation Comments RDW (test code = RDW) 15.3 11.5-14.5 [facility] HospitalOqluychCFZXAJMCWO4869-10-04 12:59:00 Test Item Value Reference Range Interpretation Comments Platelet (test code = Platelet) 196 133-450 [facility] HospitalMrlsiwbOXGDIEAMQO3635-66-12 12:59:00 Test Item Value Reference Range Interpretation Comments MPV (test code = MPV) 9.0 7.4-10.4 [place] 427541-02-03 12:59:00 Test Item Value Reference Range Interpretation Comments Cystatin C (test code = Cystatin C) 3.96 [place] 427541-02-03 12:59:00 Test Item Value Reference Range Interpretation Comments eGFR Cystatin-based (test code = eGFR 12 Cystatin-based) [place] 427541-02-03 12:59:00 Test Item Value Reference Range Interpretation Comments Albumin % (test code = Albumin %) 52.3 55.8-66.1 [place] 427541-02-03 12:59:00 Test Item Value Reference Range Interpretation Comments Alpha 1 % (test code = Alpha 1 %) 6.2 2.8-4.9 [facility]GzqzqdcJXABNXPTOS7013-26-70 12:59:00 Test Item Value Reference Range Interpretation Comments Alpha 2 % (test code = Alpha 2 %) 12.7 7.0-11.9 [facility]woodTgowhqtWMXEDOMWNQ8071-58-46 12:59:00 Test Item Value Reference Range Interpretation Comments Beta % (test code = Beta %) 11.9 7.8-13.7 [facility]woodTwfcvdxVZZOGCIDXZ9570-65-81 12:59:00 Test Item Value Reference Range Interpretation Comments Gamma % (test code = Gamma %) 16.9 11.1-18.7 [facility]woodReykdjlIDVRQAWIGU1309-28-75 12:59:00 Test Item Value Reference Range Interpretation Comments Albumin (SPE) (test code = Albumin 3.87 3.57-5.55 (SPE)) [facility]bnfq[facility]xBKXX[facility]KZHTC8044[facility] 12:59:00 Test Item Value Reference Range Interpretation Comments Alpha 1 Glob (test code = Alpha 1 Glob) 0.46 0.18-0.41 [facility]woodJzwzwfxWYTNBAVIKU8267-52-24 12:59:00 Test Item Value Reference Range Interpretation Comments Alpha 2 Glob (test code = Alpha 2 Glob) 0.94 0.45-1.00 [facility]woodXpfncnrJKITSSBSMC3158-25-16 12:59:00 Test Item Value Reference Range Interpretation Comments Beta Glob (test code = Beta Glob) 0.88 0.50-1.15 [facility]woodIttwvwjQSJDJJQSBH7013-31-31 12:59:00 Test Item Value Reference Range Interpretation Comments Gamma Glob (test code = Gamma Glob) 1.25 0.71-1.57 [facility]woodIlruocbMGXWEAWXRU7514-18-27 12:59:00 Test Item Value Reference Range Interpretation Comments Tot Prot (SPE) (test code = Tot Prot 7.4 6.4-8.4 (SPE)) [facility]woodVjpeqrkJIHNOGSEAH3937-27-65 12:59:00 Test Item Value Reference Range Interpretation [...] and concur with the resident's interpretation. CPT 63362-TQ [place] [address]-02-03 12:59:00 Test Item Value Reference Range Interpretation Comments [place] Free Light Chains (test code = 119.9 [place] Free Light Chains) [facility]woodZrpatcvGPDHCULMIZ9060-11-49 12:59:00 Test Item Value Reference Range Interpretation Comments Lambda Free Light Chains (test code = 69.6 Lambda Free Light Chains) [place] [address]-02-03 12:59:00 Test Item Value Reference Range Interpretation Comments [place]/Lambda Free Light Chains Ratio 1.72 1 (test code = [place]/Lambda Free Light Chains Ratio) [place] [address]-02-03 12:59:00 Test Item Value Reference Range Interpretation Comments CMV IgG (test code = CMV IgG) no gt [place] 427541-02-03 12:59:00 Test Item Value Reference Range Interpretation Comments EBV VCA IgG (test code = EBV VCA IgG) 427.00 [facility]woodWuzgpigXHUHIBLYQQ3435-11-79 12:59:00 Test Item Value Reference Range Interpretation Comments HIV Ag/Ab 4th Gen Negative *NA*(04/04/20 (test code = HIV 6:59 AM) Ag/Ab 4th Gen) [place] 427541-02-03 12:59:00 Test Item Value Reference Range Interpretation Comments Hep A Tot (test code = Hep A Tot) REACTIVE [place] 427541-02-03 12:59:00 Test Item Value Reference Range Interpretation Comments Hep Bs Ab (test code = Hep Bs Ab) no gt [facility]woodAmhpbivYHWYARGQNW0399-09-93 12:59:00 Test Item Value Reference Range Interpretation Comments Hep B Core Ab (test code = Hep B NON-REACTIVE Core Ab) [facility]CgqxzqcOSOPRJEJMP7970-39-34 12:59:00 Test Item Value Reference Range Interpretation Comments Hep Bs Ag (test code = Hep Bs NON-REACTIVE Ag) [place] 427541-02-03 12:59:00 Test Item Value Reference Range Interpretation Comments Hep C Ab (test code = Hep C Ab) NON-REACTIVE [facility]evilleGvrntjnRVVWQEUYJP5104-14-11 12:59:00 Test Item Value Reference Range Interpretation Comments Hep Signal to Cut-Off (test code = Hep 0.02 1 Signal to Cut-Off) [facility]evilleSshghyvITVFOALIAR2410-35-83 12:59:00 Test Item Value Reference Range Interpretation Comments HSV 1 IgG (test code = HSV 1 IgG) 23.80 [place] 427541-02-03 12:59:00 Test Item Value Reference Range Interpretation Comments HSV 2 IgG (test code = HSV 2 IgG) no gt [facility]evilleFufjnqnLTCBKLAAMR8324-89-46 12:59:00 Test Item Value Reference Range Interpretation Comments T-Spot.TB (test code = T-Spot.TB) Negative [place] 427541-02-03 12:59:00 Test Item Value Reference Range Interpretation Comments T-Spot Pnl A Neg Ctrl Corrected (test 0 1 code = T-Spot Pnl A Neg Ctrl Corrected) [place] 427541-02-03 12:59:00 Test Item Value Reference Range Interpretation Comments T-Spot Pnl B Neg Ctrl Corrected (test 0 1 code = T-Spot Pnl B Neg Ctrl Corrected) [facility]evilleGksdcnmSNXPGALJWH1437-30-08 12:59:00 Test Item Value Reference Range Interpretation Comments T-Spot Neg Ctrl (test code = T-Spot Passed Neg Ctrl) [place] 427541-02-03 12:59:00 Test Item Value Reference Range Interpretation Comments T-Spot Pos Ctrl (test code = T-Spot Passed Pos Ctrl) [place] 427541-02-03 12:59:00 Test Item Value Reference Range Interpretation Comments Treponemal Ab (test code Non-Reactive = Treponemal Ab) *NA*(04/04/20 6:59 AM) [place] 427541-02-03 12:59:00 Test Item Value Reference Range Interpretation Comments Varicella IgG (test code = Varicella 203.70 IgG) [place] 427541-02-03 12:59:00 Test Item Value Reference Range Interpretation Comments Mumps IgG (test code = Mumps IgG) no gt [place] 427541-02-03 12:59:00 Test Item Value Reference Range Interpretation Comments Rubella IgG (test code = Rubella IgG) no [place] [address]-02-03 12:59:00 Test Item Value Reference Range Interpretation Comments Rubeola IgG (test code = Rubeola IgG) 192.00 [facility]RyfhibwDAMCDDYXBW2740-01-99 12:59:00 Test Item Value Reference Range Interpretation Comments KAREN Ser Pattern A distinct monoclonal (test code = KAREN Ser band is present in the Pattern) IgM izabella with a corresponding band in the kappa light chain izabella. The polyclonal gamma globulin background is preserved in all lanes. [facility] PasoVukhwqwQYHEOYOUVS0257-45-66 12:59:00 Test Item Value Reference Range Interpretation [...] and concur with the resident's interpretation. CPT 55009-EJ [facility] PasoAkfjrpgOBKQPI0489-83-34 12:59:00 Test Item Value Reference Range Interpretation Comments Trig (test code = Trig) 70 [facility] PasoDtmzoufPMCIFM8832-87-61 12:59:00 Test Item Value Reference Range Interpretation Comments Chol (test code = Chol) 102 [facility]woodHgaslfuYXMEXS8908-16-29 12:59:00 Test Item Value Reference Range Interpretation Comments HDL (test code = HDL) 33 [facility]woodCnvvljmNIVZVS9883-76-25 12:59:00 Test Item Value Reference Range Interpretation Comments CHD Risk (test code = CHD Risk) 3.09 1 4.00-7.30 [facility] PasoIvbzdnzXIDPYV4575-94-92 12:59:00 Test Item Value Reference Range Interpretation Comments LDL (Calculated) (test code = LDL 55 (Calculated)) [facility] PasoFmkdxgpKMEFGR2490-28-03 12:59:00 Test Item Value Reference Range Interpretation Comments VLDL (test code = VLDL) 14 1 [facility] PasoannPARASITOLOGY - [id number] 12:59:00 Test Item Value Reference Range Interpretation Comments Strongyloides Antibodies (test code POSITIVE = Strongyloides Antibodies) [facility]woodPARATHYROID HYZXEMM5316-16-98 12:59:00 Test Item Value Reference Range Interpretation Comments PTH Intact (test code = PTH Intact) 635.6 18.4-80.1 [facility]REF[facility] OIGQAUL5092-63-13 12:59:00 Test Item Value Reference Range Interpretation Comments Misc Quest (test code = Misc SEE COMMENT [facility]) [facility]2021-02-03 12:59:00 Test Item Value Reference Range Interpretation Comments Nicotine Lvl (test code = Nicotine Lvl) no gt [facility] NPKSYIBAS1545-11-39 12:59:00 Test Item Value Reference Range Interpretation Comments Cotinine Lvl (test code = Cotinine Lvl) no gt [facility]2021-02-03 12:59:00 Test Item Value Reference Range Interpretation Comments Hgb A1C (test code = Hgb A1C) 6.0 [facility]2021-02-03 12:59:00 Test Item Value Reference Range Interpretation Comments PSA (test code = PSA) 1.5 [facility]woodVIRAL - [id number] 12:59:00 Test Item Value Reference Range Interpretation Comments T cruzi ([place]) Ab (test code = NONREACTIVE T cruzi ([place]) Ab) [facility] XJMZJMDI2024-46-30 12:59:00 Test Item Value Reference Range Interpretation Comments W Nile Ab IgG (test code = W Nile Ab no gt IgG) [facility] QGHSSBGB7224-96-22 12:59:00 Test Item Value Reference Range Interpretation Comments W Nile Ab IgM (test code = W Nile Ab no gt IgM) [facility] IOPPQ6764-85-01 12:59:00 Test Item Value Reference Range Interpretation Comments Ferritin Lvl (test code = Ferritin Lvl) 228 22-[address] [facility] EYDCO7713-48-36 12:59:00 Test Item Value Reference Range Interpretation Comments Iron (test code = Iron) 33 [facility]2021-02-03 12:59:00 Test Item Value Reference Range Interpretation Comments TIBC (test code = TIBC) [address] [facility] [id number] 12:59:00 Test Item Value Reference Range Interpretation Comments % Satur Fe (test code = % Satur Fe) 13 [facility] LRDUS7428-82-28 12:59:00 Test Item Value Reference Range Interpretation Comments Creatinine Lvl (test code = Creatinine 5.71 0.50-1.40 Lvl) [place] 498821-02-03 12:59:00 Test Item Value Reference Range Interpretation Comments eGFR (test code = eGFR) 10 [place] 498821-02-03 12:59:00 Test Item Value Reference Range Interpretation Comments Glucose Lvl (test code = Glucose Lvl) 72 70-99 [place] [address]-02-03 12:59:00 Test Item Value Reference Range Interpretation Comments BUN (test code = BUN) 47 7-22 [place] 498821-02-03 12:59:00 Test Item Value Reference Range Interpretation Comments Creatinine Lvl (test code = Creatinine 5.59 0.50-1.40 Lvl) [place] 498821-02-03 12:59:00 Test Item Value Reference Range Interpretation Comments Sodium Lvl (test code = Sodium Lvl) 143 135-145 [place] 498821-02-03 12:59:00 Test Item Value Reference Range Interpretation Comments Potassium Lvl (test code = Potassium 4.0 3.5-5.1 Lvl) [place] 498821-02-03 12:59:00 Test Item Value Reference Range Interpretation Comments Chloride Lvl (test code = Chloride Lvl) 110 95-109 [place] 498821-02-03 12:59:00 Test Item Value Reference Range Interpretation Comments CO2 (test code = CO2) 24 24-32 [place] [address]-02-03 12:59:00 Test Item Value Reference Range Interpretation Comments Calcium Lvl (test code = Calcium Lvl) 8.7 8.5-10.5 [place] 498821-02-03 12:59:00 Test Item Value Reference Range Interpretation Comments Total Protein (test code = Total 7.4 6.4-8.4 Protein) [place] [address]-02-03 12:59:00 Test Item Value Reference Range Interpretation Comments Albumin Lvl (test code = Albumin Lvl) 3.5 3.5-5.0 [place] 498821-02-03 12:59:00 Test Item Value Reference Range Interpretation Comments ALT (test code = ALT) 12 See_Comment [Auto mated message] The system which ge nerated this result transmit nicko reference range : <=65. The reference range was not used to interpr et this result as adebayo l/abnormal. [facility] PasoUn[facility] [id number] 12:59:00 Test Item Value Reference Range Interpretation Comments AST (test code = AST) 14 See_Comment [Auto mated message] The system which ge nerated this result transmit nicko reference range : <=37. The reference range was not used to interpr et this result as adebayo l/abnormal. [facility] VPYZJ9401-50-15 12:59:00 Test Item Value Reference Range Interpretation Comments Alk Phos (test code = Alk Phos) 58 39-136 [facility]Un[facility] [id number] 12:59:00 Test Item Value Reference Range Interpretation Comments Bili Total (test code = Bili Total) 0.3 0.2-1.3 [place] 498821-02-03 12:59:00 Test Item Value Reference Range Interpretation Comments AGAP (test code = AGAP) 13.0 10.0-20.0 [facility] [id number] 12:59:00 Test Item Value Reference Range Interpretation Comments B/C Ratio (test code = B/C Ratio) 8 1 6-25 [facility] [id number] 12:59:00 Test Item Value Reference Range Interpretation Comments Globulin (test code = Globulin) 3.9 2.7-4.2 [facility] [id number] 12:59:00 Test Item Value Reference Range Interpretation Comments A/G Ratio (test code = A/G Ratio) 0.9 1 0.7-1.6 [facility] [id number] 12:59:00 Test Item Value Reference Range Interpretation Comments eGFR (test code = eGFR) 10 [facility] KJCOF2991-19-32 12:59:00 Test Item Value Reference Range Interpretation Comments Magnesium Lvl (test code = Magnesium 1.5 1.8-2.4 Lvl) [facility] [id number] 12:59:00 Test Item Value Reference Range Interpretation Comments Phosphorus (test code = Phosphorus) 5.0 2.5-4.5 [facility] [id number] 12:59:00 Test Item Value Reference Range Interpretation Comments Uric Acid (test code = Uric Acid) 5.8 3.8-8.0 [facility] [id number] 12:59:00 Test Item Value Reference Range Interpretation Comments Vitamin D, 25-OH, Total (test code = 33 Vitamin D, 25-OH, Total) [facility]DR[facility] [id number] 12:59:00 Test Item Value Reference Range Interpretation Comments Phencyclidine Scr (test code = Negative Phencyclidine Scr) [facility] [id number] 12:59:00 Test Item Value Reference Range Interpretation Comments Kaitlin Scr (test code = Kaitlin Scr) Negative [facility]DR[facility] CVZTFK5725-97-00 12:59:00 Test Item Value Reference Range Interpretation Comments Cannab Scr (test code = Cannab Scr) Negative [facility] [id number] 12:59:00 Test Item Value Reference Range Interpretation Comments Methadone Scr (test code = Methadone Negative Scr) [facility] [id number] 12:59:00 Test Item Value Reference Range Interpretation Comments Cocaine Scr (test code = Cocaine Negative Scr) [facility] [id number] 12:59:00 Test Item Value Reference Range Interpretation Comments Benzodiaz Scr (test code = Benzodiaz Negative Scr) [facility] [id number] 12:59:00 Test Item Value Reference Range Interpretation Comments Amph Scr (test code = Amph Scr) Negative [facility] [id number] 12:59:00 Test Item Value Reference Range Interpretation Comments Opiate Scr (test code = Opiate Scr) Negative [facility] [id number] 12:59:00 Test Item Value Reference Range Interpretation Comments 6-Acetylmor Scr (test code = Negative 6-Acetylmor Scr) [facility]FUN[facility] - [id number] 12:59:00 Test Item Value Reference Range Interpretation Comments Cryptococcal Ag (test Negative (04/04/20 code = Cryptococcal Ag) 6:59 AM) [facility] - [id number] 12:59:00 Test Item Value Reference Range Interpretation Comments Histo Yeast Ab (test code = Histo Yeast <1:8 Ab) [facility]FUN[facility] - [id number] 12:59:00 Test Item Value Reference Range Interpretation Comments Histo mycel Ab (test code = Histo mycel <1:8 Ab) [facility]FUN[facility] - [id number] 12:59:00 Test Item Value Reference Range Interpretation Comments Blastomyces Ab (test code = Negative Blastomyces Ab) [facility]2021-02-03 12:59:00 Test Item Value Reference Range Interpretation Comments Coccid Ab IgM (test code = Coccid Ab NEGATIVE IgM) [facility]2021-02-03 12:59:00 Test Item Value Reference Range Interpretation Comments Coccid Ab IgG (test code = Coccid Ab NEGATIVE IgG) [place] 352161-02-03 12:59:00 Test Item Value Reference Range Interpretation Comments Segs (test code = Segs) 65.6 45.0-75.0 [place] 352161-02-03 12:59:00 Test Item Value Reference Range Interpretation Comments Lymphocytes (test code = Lymphocytes) 21.6 20.0-40.0 [address]02-03 12:59:00 Test Item Value Reference Range Interpretation Comments Monocytes (test code = Monocytes) 8.5 2.0-12.0 [place] [address]-02-03 12:59:00 Test Item Value Reference Range Interpretation Comments Eosinophils (test code = 3.5 See_Comment [A utomated message] The Eosinophils) system which ge nerated this result tra nsmitted reference range : <=4.0. The reference r carlos was not used to int erpret this result as normal/abnormal . [place] 352161-02-03 12:59:00 Test Item Value Reference Range Interpretation Comments Basophils (test code = 0.8 See_Comment [Aut omated message] The Basophils) system which ge nerated this result tra nsmitted reference range : <=1.0. The reference r carlos was not used to int erpret this result as normal/abnormal . [place] 352161-02-03 12:59:00 Test Item Value Reference Range Interpretation Comments Neutrophils # (test code = Neutrophils 5.1 1.5-8.1 #) [place] 352161-02-03 12:59:00 Test Item Value Reference Range Interpretation Comments Lymphocytes # (test code = Lymphocytes 1.7 1.0-5.5 #) [place] 352161-02-03 12:59:00 Test Item Value Reference Range Interpretation Comments Monocytes # (test code 0.7 See_Comment [Aut omated message] The = Monocytes #) system which generated this result tra nsmitted reference range : <=0.8. The reference r carlos was not used to int erpret this result as normal/abnormal . [facility] HospitalRxiabvgDBXCJIPYET6184-44-19 12:59:00 Test Item Value Reference Range Interpretation Comments Eosinophils # (test code 0.3 See_Comment [A utomated message] The = Eosinophils #) system whic h generated this result tra nsmitted reference range : <=0.5. The reference r carlos was not used to int erpret this result as normal/abnormal . [place] 352161-02-03 12:59:00 Test Item Value Reference Range Interpretation Comments Basophils # (test code 0.1 See_Comment [Aut omated message] The = Basophils #) system which generated this result tra nsmitted reference range : <=0.2. The reference r carlos was not used to int erpret this result as normal/abnormal . [facility] HospitalVbwrojwOIEJVHHATB5850-65-39 12:59:00 Test Item Value Reference Range Interpretation Comments PT (test code = PT) 12.8 s 12.0-14.7 [place] 352161-02-03 12:59:00 Test Item Value Reference Range Interpretation Comments INR (test code = INR) 0.97 1 0.85-1.17 [place] 352161-02-03 12:59:00 Test Item Value Reference Range Interpretation Comments PTT (test code = PTT) 32.2 s 22.9-35.8 [place] 352161-02-03 12:59:00 Test Item Value Reference Range Interpretation Comments WBC (test code = WBC) 7.8 3.7-10.4 [place] 352161-02-03 12:59:00 Test Item Value Reference Range Interpretation Comments RBC (test code = RBC) 3.89 4.70-6.10 [place] 352161-02-03 12:59:00 Test Item Value Reference Range Interpretation Comments Hgb (test code = Hgb) 11.5 14.0-18.0 [place] [address]-02-03 12:59:00 Test Item Value Reference Range Interpretation Comments Hct (test code = Hct) 35.9 42.0-54.0 [place] 352161-02-03 12:59:00 Test Item Value Reference Range Interpretation Comments MCV (test code = MCV) 92.5 80.0-94.0 [place] 352161-02-03 12:59:00 Test Item Value Reference Range Interpretation Comments MCH (test code = MCH) 29.5 pg 27.0-31.0 [place] 352161-02-03 12:59:00 Test Item Value Reference Range Interpretation Comments MCHC (test code = MCHC) 31.9 32.0-36.0 [place] 352161-02-03 12:59:00 Test Item Value Reference Range Interpretation Comments RDW (test code = RDW) 15.3 11.5-14.5 [place] 352161-02-03 12:59:00 Test Item Value Reference Range Interpretation Comments Platelet (test code = Platelet) 196 133-450 [place] 352161-02-03 12:59:00 Test Item Value Reference Range Interpretation Comments MPV (test code = MPV) 9.0 7.4-10.4 [place] 427541-02-03 12:59:00 Test Item Value Reference Range Interpretation Comments Cystatin C (test code = Cystatin C) 3.96 [place] 427541-02-03 12:59:00 Test Item Value Reference Range Interpretation Comments eGFR Cystatin-based (test code = eGFR 12 Cystatin-based) [place] 427541-02-03 12:59:00 Test Item Value Reference Range Interpretation Comments Albumin % (test code = Albumin %) 52.3 55.8-66.1 [place] 427541-02-03 12:59:00 Test Item Value Reference Range Interpretation Comments Alpha 1 % (test code = Alpha 1 %) 6.2 2.8-4.9 [place] [address]-02-03 12:59:00 Test Item Value Reference Range Interpretation Comments Alpha 2 % (test code = Alpha 2 %) 12.7 7.0-11.9 [place] [address]-02-03 12:59:00 Test Item Value Reference Range Interpretation Comments Beta % (test code = Beta %) 11.9 7.8-13.7 [place] 427541-02-03 12:59:00 Test Item Value Reference Range Interpretation Comments Gamma % (test code = Gamma %) 16.9 11.1-18.7 [facility]evilleSaqotwpLQCSAOMBDE6953-89-33 12:59:00 Test Item Value Reference Range Interpretation Comments Albumin (SPE) (test code = Albumin 3.87 3.57-5.55 (SPE)) [facility]evilleNckvpwqACVRCVONIH6440-96-47 12:59:00 Test Item Value Reference Range Interpretation Comments Alpha 1 Glob (test code = Alpha 1 Glob) 0.46 0.18-0.41 [facility]woodFipeuleHMFTZCQEEW9319-03-02 12:59:00 Test Item Value Reference Range Interpretation Comments Alpha 2 Glob (test code = Alpha 2 Glob) 0.94 0.45-1.00 [facility]evilleJxplpouHOGJYZJJAC7623-94-85 12:59:00 Test Item Value Reference Range Interpretation Comments Beta Glob (test code = Beta Glob) 0.88 0.50-1.15 [facility]woodUtcfrblSQVJTIIJGB1586-63-84 12:59:00 Test Item Value Reference Range Interpretation Comments Gamma Glob (test code = Gamma Glob) 1.25 0.71-1.57 [facility]woodTljaaqxHFTRJFKZGZ3663-82-36 12:59:00 Test Item Value Reference Range Interpretation Comments Tot Prot (SPE) (test code = Tot Prot 7.4 6.4-8.4 (SPE)) [facility]evilleMvdefcvGAIOBXRFSY7926-56-12 12:59:00 Test Item Value Reference Range Interpretation [...] and concur with the resident's interpretation. CPT 67431-DH [facility]woodKkisnirYHIBVKMXVP3347-09-06 12:59:00 Test Item Value Reference Range Interpretation Comments [place] Free Light Chains (test code = 119.9 [place] Free [place] Chains) [facility]evilleSrlkbhvGHJELJFRUK4013-97-56 12:59:00 Test Item Value Reference Range Interpretation Comments Lambda Free Light Chains (test code = 69.6 Lambda Free Light Chains) [facility]evilleMrqsuswZEADGHCWNO1689-27-53 12:59:00 Test Item Value Reference Range Interpretation Comments [place]/Lambda Free Light Chains Ratio 1.72 1 (test code = [place]/Lambda Free Light Chains Ratio) [facility]evilleDlteegjXUOBMILSBT5017-65-36 12:59:00 Test Item Value Reference Range Interpretation Comments CMV IgG (test code = CMV IgG) no gt [facility]evilleDdemeqgUHCQTCLILW6825-93-28 12:59:00 Test Item Value Reference Range Interpretation Comments EBV VCA IgG (test code = EBV VCA IgG) 427.00 [facility]evilleAyobcjaCKYOAHBYCN1094-99-72 12:59:00 Test Item Value Reference Range Interpretation Comments HIV Ag/Ab 4th Gen Negative *NA*(04/04/20 (test code = HIV 6:59 AM) Ag/Ab 4th Gen) [place] 427541-02-03 12:59:00 Test Item Value Reference Range Interpretation Comments Hep A Tot (test code = Hep A Tot) REACTIVE [facility]evilleQeqjfsjSZADXUEQXW1569-72-03 12:59:00 Test Item Value Reference Range Interpretation Comments Hep Bs Ab (test code = Hep Bs Ab) no gt [facility]evilleNxbogaaIMNESRYQQK5561-00-88 12:59:00 Test Item Value Reference Range Interpretation Comments Hep B Core Ab (test code = Hep B NON-REACTIVE Core Ab) [facility]evilleBhzfweqEXXEKSZGCA1795-09-47 12:59:00 Test Item Value Reference Range Interpretation Comments Hep Bs Ag (test code = Hep Bs NON-REACTIVE Ag) [facility] BeevilleFlavlwdQVSGMBRKEP8125-57-86 12:59:00 Test Item Value Reference Range Interpretation Comments Hep C Ab (test code = Hep C Ab) NON-REACTIVE [place] 427541-02-03 12:59:00 Test Item Value Reference Range Interpretation Comments Hep Signal to Cut-Off (test code = Hep 0.02 1 Signal to Cut-Off) [place] 427541-02-03 12:59:00 Test Item Value Reference Range Interpretation Comments HSV 1 IgG (test code = HSV 1 IgG) 23.80 [place] 427541-02-03 12:59:00 Test Item Value Reference Range Interpretation Comments HSV 2 IgG (test code = HSV 2 IgG) no gt [place] 427541-02-03 12:59:00 Test Item Value Reference Range Interpretation Comments T-Spot.TB (test code = T-Spot.TB) Negative [facility]evilleMedtbeoSZZQLLOZIH7050-19-77 12:59:00 Test Item Value Reference Range Interpretation Comments T-Spot Pnl A Neg Ctrl Corrected (test 0 1 code = T-Spot Pnl A Neg Ctrl Corrected) [facility]evilleFkpwcimZZYTIRMDQI7657-93-81 12:59:00 Test Item Value Reference Range Interpretation Comments T-Spot Pnl B Neg Ctrl Corrected (test 0 1 code = T-Spot Pnl B Neg Ctrl Corrected) [facility]evilleVpntluxOSWQXREEHM8242-34-52 12:59:00 Test Item Value Reference Range Interpretation Comments T-Spot Neg Ctrl (test code = T-Spot Passed Neg Ctrl) [facility] BeevilleTilqtgyCCTYQKPRQN7666-66-53 12:59:00 Test Item Value Reference Range Interpretation Comments T-Spot Pos Ctrl (test code = T-Spot Passed Pos Ctrl) [facility]evilleApzmvhrQUOAVHBJOO6515-66-79 12:59:00 Test Item Value Reference Range Interpretation Comments Treponemal Ab (test code Non-Reactive = Treponemal Ab) *NA*(04/04/20 6:59 AM) [facility]evilleGvfuoenQOWPVGNSPF9169-73-27 12:59:00 Test Item Value Reference Range Interpretation Comments Varicella IgG (test code = Varicella 203.70 IgG) [facility]evilleXwktarhVZCLCUQVJX0676-42-77 12:59:00 Test Item Value Reference Range Interpretation Comments Mumps IgG (test code = Mumps IgG) no gt [facility] BeevilleVuaqfsiDDRPKJHWCO1400-30-43 12:59:00 Test Item Value Reference Range Interpretation Comments Rubella IgG (test code = Rubella IgG) no gt [facility]evilleAsfynxmKPQXUNMCEX8208-91-31 12:59:00 Test Item Value Reference Range Interpretation Comments Rubeola IgG (test code = Rubeola IgG) 192.00 [place] 427541-02-03 12:59:00 Test Item Value Reference Range Interpretation Comments KAREN Ser Pattern A distinct monoclonal (test code = KAREN Ser band is present in the Pattern) IgM izabella with a corresponding band in the kappa light chain izabella. The polyclonal gamma globulin background is preserved in all lanes. [place] 427541-02-03 12:59:00 Test Item Value Reference Range Interpretation [...] and concur with the resident's interpretation. CPT 08952-AQ [facility]BgbbpnpKMXVBG2650-66-16 12:59:00 Test Item Value Reference Range Interpretation Comments Trig (test code = Trig) 70 [facility] PasoEftngttWYFOXO1710-27-51 12:59:00 Test Item Value Reference Range Interpretation Comments Chol (test code = Chol) 102 [facility] PasoAjwkkyzUFVHNQ2734-95-20 12:59:00 Test Item Value Reference Range Interpretation Comments HDL (test code = HDL) 33 [facility] PasoSswlhhsFIFDFR1282-75-33 12:59:00 Test Item Value Reference Range Interpretation Comments CHD Risk (test code = CHD Risk) 3.09 1 4.00-7.30 [facility] PasoCzxsybjXSMRQK2425-47-94 12:59:00 Test Item Value Reference Range Interpretation Comments LDL (Calculated) (test code = LDL 55 (Calculated)) [facility] PasoEqfaeyrHCRQUS5843-49-55 12:59:00 Test Item Value Reference Range Interpretation Comments VLDL (test code = VLDL) 14 1 [facility] PasoannPARASITOLOGY - LDDAATGE0097-72-15 12:59:00 Test Item Value Reference Range Interpretation Comments Strongyloides Antibodies (test code POSITIVE = Strongyloides Antibodies) [facility]woodPARATHYROID GPCRFZI5086-12-83 12:59:00 Test Item Value Reference Range Interpretation Comments PTH Intact (test code = PTH Intact) 635.6 18.4-80.1 [facility] PasoannREFERENCE LAB YIZTGJD5946-37-10 12:59:00 Test Item Value Reference Range Interpretation Comments Misc Quest (test code = Misc SEE COMMENT Quest) [facility] PasoannSPECIAL UYWIDAKYI7847-34-72 12:59:00 Test Item Value Reference Range Interpretation Comments Nicotine Lvl (test code = Nicotine Lvl) no gt [facility] PasoannSPECIAL REBEZNGNI1046-57-64 12:59:00 Test Item Value Reference Range Interpretation Comments Cotinine Lvl (test code = Cotinine Lvl) no gt [facility]annSPECIAL FQOQXIITI3741-39-17 12:59:00 Test Item Value Reference Range Interpretation Comments Hgb A1C (test code = Hgb A1C) 6.0 [facility] ELJIGKEOC4740-01-25 12:59:00 Test Item Value Reference Range Interpretation Comments PSA (test code = PSA) 1.5 [facility]2021-02-03 12:59:00 Test Item Value Reference Range Interpretation Comments T cruzi (Chagas) Ab (test code = NONREACTIVE T cruzi (Chagas) Ab) [facility]2021-02-03 12:59:00 Test Item Value Reference Range Interpretation Comments W Nile Ab IgG (test code = W Nile Ab no gt IgG) [facility]2021-02-03 12:59:00 Test Item Value Reference Range Interpretation Comments W Nile Ab IgM (test code = W Nile Ab no gt IgM) [facility]2021-02-03 12:59:00 Test Item Value Reference Range Interpretation Comments Ferritin Lvl (test code = Ferritin Lvl) 228 22-275 [facility]2021-02-03 12:59:00 Test Item Value Reference Range Interpretation Comments Iron (test code = Iron) 33 [facility]2021-02-03 12:59:00 Test Item Value Reference Range Interpretation Comments TIBC (test code = TIBC) 262 [facility]2021-02-03 12:59:00 Test Item Value Reference Range Interpretation Comments % Satur Fe (test code = % Satur Fe) [address] [facility]2021-02-03 12:59:00 Test Item Value Reference Range Interpretation Comments Creatinine Lvl (test code = Creatinine 5.71 0.50-1.40 Lvl) [facility]2021-02-03 12:59:00 Test Item Value Reference Range Interpretation Comments eGFR (test code = eGFR) [address] [facility]2021-02-03 12:59:00 Test Item Value Reference Range Interpretation Comments Glucose Lvl (test code = Glucose Lvl) 72 70-[address] [facility]2021-02-03 12:59:00 Test Item Value Reference Range Interpretation Comments BUN (test code = BUN) 47 7-[address] [facility]2021-02-03 12:59:00 Test Item Value Reference Range Interpretation Comments Creatinine Lvl (test code = Creatinine 5.59 0.50-1.40 Lvl) [place] 498821-02-03 12:59:00 Test Item Value Reference Range Interpretation Comments Sodium Lvl (test code = Sodium Lvl) 143 135-145 [place] 498821-02-03 12:59:00 Test Item Value Reference Range Interpretation Comments Potassium Lvl (test code = Potassium 4.0 3.5-5.1 Lvl) [place] 498821-02-03 12:59:00 Test Item Value Reference Range Interpretation Comments Chloride Lvl (test code = Chloride Lvl) 110 95-109 [place] 498821-02-03 12:59:00 Test Item Value Reference Range Interpretation Comments CO2 (test code = CO2) 24 24-32 [place] 498821-02-03 12:59:00 Test Item Value Reference Range Interpretation Comments Calcium Lvl (test code = Calcium Lvl) 8.7 8.5-10.5 [place] 498821-02-03 12:59:00 Test Item Value Reference Range Interpretation Comments Total Protein (test code = Total 7.4 6.4-8.4 Protein) [place] 498821-02-03 12:59:00 Test Item Value Reference Range Interpretation Comments Albumin Lvl (test code = Albumin Lvl) 3.5 3.5-5.0 [place] 498821-02-03 12:59:00 Test Item Value Reference Range Interpretation Comments ALT (test code = ALT) 12 See_Comment [Auto mated message] The system which [employer] nerated this result transmit nicko reference range : <=65. The reference range was not used to interpr et this result as adebayo l/abnormal. [place] 498821-02-03 12:59:00 Test Item Value Reference Range Interpretation Comments AST (test code = AST) 14 See_Comment [Auto mated message] The system which [employer] nerated this result transmit nicko reference range : <=37. The reference range was not used to interpr et this result as adebayo l/abnormal. [place] 498821-02-03 12:59:00 Test Item Value Reference Range Interpretation Comments Alk Phos (test code = Alk Phos) 58 39-136 [place] 498821-02-03 12:59:00 Test Item Value Reference Range Interpretation Comments Bili Total (test code = Bili Total) 0.3 0.2-1.3 [facility] PasoUn[facility] [id number] 12:59:00 Test Item Value Reference Range Interpretation Comments AGAP (test code = AGAP) 13.0 10.0-20.0 [facility] PasoUn[facility] [id number] 12:59:00 Test Item Value Reference Range Interpretation Comments B/C Ratio (test code = B/C Ratio) 8 1 6-25 [facility] PasoUn[facility] [id number] 12:59:00 Test Item Value Reference Range Interpretation Comments Globulin (test code = Globulin) 3.9 2.7-4.2 [facility] Merkle [id number] 12:59:00 Test Item Value Reference Range Interpretation Comments A/G Ratio (test code = A/G Ratio) 0.9 1 0.7-1.6 [facility] [id number] 12:59:00 Test Item Value Reference Range Interpretation Comments eGFR (test code = eGFR) 10 [facility] PasoUn[facility] [id number] 12:59:00 Test Item Value Reference Range Interpretation Comments Magnesium Lvl (test code = Magnesium 1.5 1.8-2.4 Lvl) [facility] [id number] 12:59:00 Test Item Value Reference Range Interpretation Comments Phosphorus (test code = Phosphorus) 5.0 2.5-4.5 [facility] Paso[facility] [id number] 12:59:00 Test Item Value Reference Range Interpretation Comments Uric Acid (test code = Uric Acid) 5.8 3.8-8.0 [facility] [employer] [id number] 12:59:00 Test Item Value Reference Range Interpretation Comments Vitamin D, 25-OH, Total (test code = 33 Vitamin D, 25-OH, Total) [facility] PasoCloudFab QGIBTO3030-36-03 12:59:00 Test Item Value Reference Range Interpretation Comments Phencyclidine Scr (test code = Negative Phencyclidine Scr) [facility] PasoNewCross TechnologiesDRUG [id number] 12:59:00 Test Item Value Reference Range Interpretation Comments Kaitlin Scr (test code = Kaitlin Scr) Negative [facility] PasoNewCross TechnologiesDRUG [id number] 12:59:00 Test Item Value Reference Range Interpretation Comments Cannab Scr (test code = Cannab Scr) Negative [facility]woodDR[facility] [id number] 12:59:00 Test Item Value Reference Range Interpretation Comments Methadone Scr (test code = Methadone Negative Scr) [facility]woodDRUG [id number] 12:59:00 Test Item Value Reference Range Interpretation Comments Cocaine Scr (test code = Cocaine Negative Scr) [facility] KingwoodDRUG SGJYRF4904-64-01 12:59:00 Test Item Value Reference Range Interpretation Comments Benzodiaz Scr (test code = Benzodiaz Negative Scr) [facility] KingwoodDRUG [id number] 12:59:00 Test Item Value Reference Range Interpretation Comments Amph Scr (test code = Amph Scr) Negative [facility] [id number] 12:59:00 Test Item Value Reference Range Interpretation Comments Opiate Scr (test code = Opiate Scr) Negative [facility] [id number] 12:59:00 Test Item Value Reference Range Interpretation Comments 6-Acetylmor Scr (test code = Negative 6-Acetylmor Scr) [facility] [id number] 12:59:00 Test Item Value Reference Range Interpretation Comments Cryptococcal Ag (test Negative (04/04/20 code = Cryptococcal Ag) 6:59 AM) [facility] [id number] 12:59:00 Test Item Value Reference Range Interpretation Comments Histo Yeast Ab (test code = Histo Yeast <1:8 Ab) [facility] [id number] 12:59:00 Test Item Value Reference Range Interpretation Comments Histo mycel Ab (test code = Histo mycel <1:8 Ab) [facility] [id number] 12:59:00 Test Item Value Reference Range Interpretation Comments Blastomyces Ab (test code = Negative Blastomyces Ab) [facility] [id number] 12:59:00 Test Item Value Reference Range Interpretation Comments Coccid Ab IgM (test code = Coccid Ab NEGATIVE IgM) [facility] [id number] 12:59:00 Test Item Value Reference Range Interpretation Comments Coccid Ab IgG (test code = Coccid Ab NEGATIVE IgG) [facility] KingwoodFjhqxneFNXIPMCZGM9299-74-78 12:59:00 Test Item Value Reference Range Interpretation Comments Segs (test code = Segs) 65.6 45.0-75.0 [place] 352161-02-03 12:59:00 Test Item Value Reference Range Interpretation Comments Lymphocytes (test code = Lymphocytes) 21.6 20.0-40.0 [place] 352161-02-03 12:59:00 Test Item Value Reference Range Interpretation Comments Monocytes (test code = Monocytes) 8.5 2.0-12.0 [place] 352161-02-03 12:59:00 Test Item Value Reference Range Interpretation Comments Eosinophils (test code = 3.5 See_Comment [A utomated message] The Eosinophils) system which ge nerated this result tra nsmitted reference range : <=4.0. The reference r carlos was not used to int erpret this result as normal/abnormal . [place] [address]-02-03 12:59:00 Test Item Value Reference Range Interpretation Comments Basophils (test code = 0.8 See_Comment [Aut omated message] The Basophils) system which ge nerated this result tra nsmitted reference range : <=1.0. The reference r carlos was not used to int erpret this result as normal/abnormal . [place] 352161-02-03 12:59:00 Test Item Value Reference Range Interpretation Comments Neutrophils # (test code = Neutrophils 5.1 1.5-8.1 #) [place] [address]-02-03 12:59:00 Test Item Value Reference Range Interpretation Comments Lymphocytes # (test code = Lymphocytes 1.7 1.0-5.5 #) [place] 352161-02-03 12:59:00 Test Item Value Reference Range Interpretation Comments Monocytes # (test code 0.7 See_Comment [Aut omated message] The = Monocytes #) system which generated this result tra nsmitted reference range : <=0.8. The reference r carlos was not used to int erpret this result as normal/abnormal . [place] [address]-02-03 12:59:00 Test Item Value Reference Range Interpretation Comments Eosinophils # (test code 0.3 See_Comment [A utomated message] The = Eosinophils #) system ic h generated this result tra nsmitted reference range : <=0.5. The reference r carlos was not used to int erpret this result as normal/abnormal . [facility]TfceeycJBJKMKYPOP3954-07-84 12:59:00 Test Item Value Reference Range Interpretation Comments Basophils # (test code 0.1 See_Comment [Aut omated message] The = Basophils #) system which generated this result tra nsmitted reference range : <=0.2. The reference r carlos was not used to int erpret this result as normal/abnormal . [facility] HospitalKhdajfkNHQKCQWUJF9142-16-42 12:59:00 Test Item Value Reference Range Interpretation Comments PT (test code = PT) 12.8 s 12.0-14.7 [facility] HospitalHdhsrqcEPOTHCCYXP0437-32-87 12:59:00 Test Item Value Reference Range Interpretation Comments INR (test code = INR) 0.97 1 0.85-1.17 [facility] HospitalHfupwwcIQRGKGOHKN6760-75-16 12:59:00 Test Item Value Reference Range Interpretation Comments PTT (test code = PTT) 32.2 s 22.9-35.8 [facility] HospitalUbfyuwaGXRWSHTQKG8616-99-27 12:59:00 Test Item Value Reference Range Interpretation Comments WBC (test code = WBC) 7.8 3.7-10.4 [facility] HospitalYuievmzTZCISLZZDM9941-95-69 12:59:00 Test Item Value Reference Range Interpretation Comments RBC (test code = RBC) 3.89 4.70-6.10 [facility] HospitalZbdtkapAQJEKSLDYR6229-92-31 12:59:00 Test Item Value Reference Range Interpretation Comments Hgb (test code = Hgb) 11.5 14.0-18.0 [facility] HospitalKffdlybETCONJNZSO6748-81-01 12:59:00 Test Item Value Reference Range Interpretation Comments Hct (test code = Hct) 35.9 42.0-54.0 [facility] HospitalDqxukjzGKKNSOOLHK3786-91-43 12:59:00 Test Item Value Reference Range Interpretation Comments MCV (test code = MCV) 92.5 80.0-94.0 [facility] HospitalDfmzvolPIFUTERKTK4033-75-66 12:59:00 Test Item Value Reference Range Interpretation Comments MCH (test code = MCH) 29.5 pg 27.0-31.0 [facility] HospitalOtactcuXOEMWNPQAX1840-97-43 12:59:00 Test Item Value Reference Range Interpretation Comments MCHC (test code = MCHC) 31.9 32.0-36.0 [place] 352161-02-03 12:59:00 Test Item Value Reference Range Interpretation Comments RDW (test code = RDW) 15.3 11.5-14.5 [place] 352161-02-03 12:59:00 Test Item Value Reference Range Interpretation Comments Platelet (test code = Platelet) 196 133-450 [place] 352161-02-03 12:59:00 Test Item Value Reference Range Interpretation Comments MPV (test code = MPV) 9.0 7.4-10.4 [place] 427541-02-03 12:59:00 Test Item Value Reference Range Interpretation Comments Cystatin C (test code = Cystatin C) 3.96 [place] 427541-02-03 12:59:00 Test Item Value Reference Range Interpretation Comments eGFR Cystatin-based (test code = eGFR 12 Cystatin-based) [place] 427541-02-03 12:59:00 Test Item Value Reference Range Interpretation Comments Albumin % (test code = Albumin %) 52.3 55.8-66.1 [place] 427541-02-03 12:59:00 Test Item Value Reference Range Interpretation Comments Alpha 1 % (test code = Alpha 1 %) 6.2 2.8-4.9 [place] [address]-02-03 12:59:00 Test Item Value Reference Range Interpretation Comments Alpha 2 % (test code = Alpha 2 %) 12.7 7.0-11.9 [place] 427541-02-03 12:59:00 Test Item Value Reference Range Interpretation Comments Beta % (test code = Beta %) 11.9 7.8-13.7 [place] 427541-02-03 12:59:00 Test Item Value Reference Range Interpretation Comments Gamma % (test code = Gamma %) 16.9 11.1-18.7 [place] [address]-02-03 12:59:00 Test Item Value Reference Range Interpretation Comments Albumin (SPE) (test code = Albumin 3.87 3.57-5.55 (SPE)) [place] [address]-02-03 12:59:00 Test Item Value Reference Range Interpretation Comments Alpha 1 Glob (test code = Alpha 1 Glob) 0.46 0.18-0.41 [place] 427541-02-03 12:59:00 Test Item Value Reference Range Interpretation Comments Alpha 2 Glob (test code = Alpha 2 Glob) 0.94 0.45-1.00 [facility]evilleRwbudncMBDCKAWKON4816-32-09 12:59:00 Test Item Value Reference Range Interpretation Comments Beta Glob (test code = Beta Glob) 0.88 0.50-1.15 [facility]woodItqnjngPMZRWTMWQW2756-48-11 12:59:00 Test Item Value Reference Range Interpretation Comments Gamma Glob (test code = Gamma Glob) 1.25 0.71-1.57 [facility]woodGcbcqwuPGLFBUDNWZ0317-22-11 12:59:00 Test Item Value Reference Range Interpretation Comments Tot Prot (SPE) (test code = Tot Prot 7.4 6.4-8.4 (SPE)) [facility]evilleRbvktqoXVDSEBKSGC7158-55-39 12:59:00 Test Item Value Reference Range Interpretation [...] and concur with the resident's interpretation. CPT 55893-YH [facility]evilleSfrhzjtCSQVOTBTSL0102-80-02 12:59:00 Test Item Value Reference Range Interpretation Comments [place] Free Light Chains (test code = 119.9 [place] Free [place] Chains) [place] 427541-02-03 12:59:00 Test Item Value Reference Range Interpretation Comments Lambda Free Light Chains (test code = 69.6 Lambda Free Light Chains) [facility]woodNlutkbtLBLKJOLPVC9028-48-40 12:59:00 Test Item Value Reference Range Interpretation Comments [place]/Lambda Free Light Chains Ratio 1.72 1 (test code = [place]/Lambda Free Light Chains Ratio) [facility]evilleRhpzcmuCESGMTNHYD9171-44-03 12:59:00 Test Item Value Reference Range Interpretation Comments CMV IgG (test code = CMV IgG) no gt [facility]woodItgflosXGMXJTBCZQ0181-79-23 12:59:00 Test Item Value Reference Range Interpretation Comments EBV VCA IgG (test code = EBV VCA IgG) 427.00 [facility]evilleDvyolcmUAKVGXPWPE9633-75-83 12:59:00 Test Item Value Reference Range Interpretation Comments HIV Ag/Ab 4th Gen Negative *NA*(04/04/20 (test code = HIV 6:59 AM) Ag/Ab 4th Gen) [facility]evilleUiffubmSFVPMGHZWG9529-39-51 12:59:00 Test Item Value Reference Range Interpretation Comments Hep A Tot (test code = Hep A Tot) REACTIVE [facility] BeevilleVljxfssPWAREDEJIL8060-68-06 12:59:00 Test Item Value Reference Range Interpretation Comments Hep Bs Ab (test code = Hep Bs Ab) no gt [facility]GbpvqdhZSADBABWHO7615-82-77 12:59:00 Test Item Value Reference Range Interpretation Comments Hep B Core Ab (test code = Hep B NON-REACTIVE Core Ab) [facility]evilleVqyilbbNCCQBXGTSV0063-92-28 12:59:00 Test Item Value Reference Range Interpretation Comments Hep Bs Ag (test code = Hep Bs NON-REACTIVE Ag) [facility]evilleLhykutkJZNHRXFIBB4436-62-35 12:59:00 Test Item Value Reference Range Interpretation Comments Hep C Ab (test code = Hep C Ab) NON-REACTIVE [facility]evilleLpxuxxiBBVITWUWXA3152-27-77 12:59:00 Test Item Value Reference Range Interpretation Comments Hep Signal to Cut-Off (test code = Hep 0.02 1 Signal to Cut-Off) [facility]evilleQlhkkzfSJMHIKTXFR7892-35-90 12:59:00 Test Item Value Reference Range Interpretation Comments HSV 1 IgG (test code = HSV 1 IgG) 23.80 [facility]evilleHkrxpweIYVTHAJTBN6925-25-42 12:59:00 Test Item Value Reference Range Interpretation Comments HSV 2 IgG (test code = HSV 2 IgG) no gt [facility]evilleVuovwwdBGIKNOSZPS6287-62-25 12:59:00 Test Item Value Reference Range Interpretation Comments T-Spot.TB (test code = T-Spot.TB) Negative [facility]evilleRifwwcoNGQHIFCYRJ4780-20-18 12:59:00 Test Item Value Reference Range Interpretation Comments T-Spot Pnl A Neg Ctrl Corrected (test 0 1 code = T-Spot Pnl A Neg Ctrl Corrected) [facility]evilleSuzrexgHMMXBITMBB7485-82-52 12:59:00 Test Item Value Reference Range Interpretation Comments T-Spot Pnl B Neg Ctrl Corrected (test 0 1 code = T-Spot Pnl B Neg Ctrl Corrected) [place] [id number] 12:59:00 Test Item Value Reference Range Interpretation Comments T-Spot Neg Ctrl (test code = T-Spot Passed Neg Ctrl) [facility]evilleFtsrruqWFJEJROWAF0738-39-18 12:59:00 Test Item Value Reference Range Interpretation Comments T-Spot Pos Ctrl (test code = T-Spot Passed Pos Ctrl) [facility]evilleJliqjyxJBAGNHZUDN0874-95-24 12:59:00 Test Item Value Reference Range Interpretation Comments Treponemal Ab (test code Non-Reactive = Treponemal Ab) *NA*(04/04/20 6:59 AM) [facility]evilleAydwwjxSYJCZNSKCS2547-29-43 12:59:00 Test Item Value Reference Range Interpretation Comments Varicella IgG (test code = Varicella 203.70 IgG) [facility] BeevilleLsjanukQIQSQUNDGO5795-35-63 12:59:00 Test Item Value Reference Range Interpretation Comments Mumps IgG (test code = Mumps IgG) no gt [facility]evilleXouyzbpUAZXOJWFFY5204-45-68 12:59:00 Test Item Value Reference Range Interpretation Comments Rubella IgG (test code = Rubella IgG) no gt [facility]evilleMthkjtcTCDXZDESEU0829-68-63 12:59:00 Test Item Value Reference Range Interpretation Comments Rubeola IgG (test code = Rubeola IgG) 192.00 [facility]evilleVqsvjdxLUJCKXBAZJ3513-73-27 12:59:00 Test Item Value Reference Range Interpretation Comments KAREN Ser Pattern A distinct monoclonal (test code = KAREN Ser band is present in the Pattern) IgM izabella with a corresponding band in the kappa light chain izabella. The polyclonal gamma globulin background is preserved in all lanes. [facility]evilleHpuwvadBUMDHGUXHZ2244-95-55 12:59:00 Test Item Value Reference Range Interpretation [...] and concur with the resident's interpretation. CPT 42413-QS [facility] CenterCtlkeqmJQGOZJ2950-03-00 12:59:00 Test Item Value Reference Range Interpretation Comments Trig (test code = Trig) 70 [facility] CenterKjacygfLADEMJ6393-37-87 12:59:00 Test Item Value Reference Range Interpretation Comments Chol (test code = Chol) 102 [facility]MdxfczpKOEISB6650-29-39 12:59:00 Test Item Value Reference Range Interpretation Comments HDL (test code = HDL) 33 [facility] PasoVgtslltFDMPPL4675-42-87 12:59:00 Test Item Value Reference Range Interpretation Comments CHD Risk (test code = CHD Risk) 3.09 1 4.00-7.30 [facility] PasoTolwzxmHUERIW2513-36-91 12:59:00 Test Item Value Reference Range Interpretation Comments LDL (Calculated) (test code = LDL 55 (Calculated)) [facility] PasoIbtqdvoIZHAEB5527-13-13 12:59:00 Test Item Value Reference Range Interpretation Comments VLDL (test code = VLDL) 14 1 [facility] PasoannPARASITOLOGY - [id number] 12:59:00 Test Item Value Reference Range Interpretation Comments Strongyloides Antibodies (test code POSITIVE = Strongyloides Antibodies) [facility]woodPARATHYROID [id number] 12:59:00 Test Item Value Reference Range Interpretation Comments PTH Intact (test code = PTH Intact) 635.6 18.4-80.1 [facility]woodREFERENCE LAB [id number] 12:59:00 Test Item Value Reference Range Interpretation Comments Misc Quest (test code = Misc SEE COMMENT Quest) [facility]woodSPECIAL [id number] 12:59:00 Test Item Value Reference Range Interpretation Comments Nicotine Lvl (test code = Nicotine Lvl) no gt [facility]SPE[facility] SSQGZBAOD5821-48-70 12:59:00 Test Item Value Reference Range Interpretation Comments Cotinine Lvl (test code = Cotinine Lvl) no gt [facility]SPE[facility] HQPZTRFJR2554-44-94 12:59:00 Test Item Value Reference Range Interpretation Comments Hgb A1C (test code = Hgb A1C) 6.0 [facility]annSPE[facility] JPMOIPGLW0634-28-71 12:59:00 Test Item Value Reference Range Interpretation Comments PSA (test code = PSA) 1.5 [facility]annVIRAL - [id number] 12:59:00 Test Item Value Reference Range Interpretation Comments T cruzi (Chagas) Ab (test code = NONREACTIVE T cruzi (Chagas) Ab) [facility]VIR[facility] - [id number] 12:59:00 Test Item Value Reference Range Interpretation Comments W Nile Ab IgG (test code = W Nile Ab no gt IgG) [facility] [id number] 12:59:00 Test Item Value Reference Range Interpretation Comments W Nile Ab IgM (test code = W Nile Ab no gt IgM) [facility] [id number] 14:05:00 Test Item Value Reference Range Interpretation Comments POC UA Color (test Yellow *NA*(04/27/19 code = POC UA Color) 8:05 AM) [facility] [id number] 14:05:00 Test Item Value Reference Range Interpretation Comments POC UA Turbidity (test Clear *NA*(04/27/19 code = POC UA Turbidity) 8:05 AM) [facility] [id number] 14:05:00 Test Item Value Reference Range Interpretation Comments POC UA SG (test code = POC UA SG) 1.015 1 [facility] [id number] 14:05:00 Test Item Value Reference Range Interpretation Comments POC UA pH (test code = POC UA pH) 6.0 1 5.0-8.0 [facility] [id number] 14:05:00 Test Item Value Reference Range Interpretation Comments POC UA Prot (test code = POC UA >=300 mg/dL Prot) [facility] [id number] 14:05:00 Test Item Value Reference Range Interpretation Comments POC UA Glu (test code = POC UA Negative mg/dL Glu) [facility] [id number] 14:05:00 Test Item Value Reference Range Interpretation Comments POC UA Ket (test code = POC UA Negative mg/dL Ket) [facility] [id number] 14:05:00 Test Item Value Reference Range Interpretation Comments POC UA Bili (test Negative *NA*(04/27/19 code = POC UA Bili) 8:05 AM) [facility] [id number] 14:05:00 Test Item Value Reference Range Interpretation Comments POC UA Bld (test code Trace *ABN*(04/27/19 = POC UA Bld) 8:05 AM) [facility] [id number] 14:05:00 Test Item Value Reference Range Interpretation Comments POC UA Uro (test code = POC UA Uro) 0.2 0.1-1.0 [facility] [id number] 14:05:00 Test Item Value Reference Range Interpretation Comments POC UA Nit (test code Negative *NA*(04/27/19 = POC UA Nit) 8:05 AM) [facility] [id number] 14:05:00 Test Item Value Reference Range Interpretation Comments POC UA LeukEst (test Negative *NA*(04/27/19 code = POC UA LeukEst) 8:05 AM) [facility] [id number] 14:05:00 Test Item Value Reference Range Interpretation Comments POC UA Color (test Yellow *NA*(04/27/19 code = POC UA Color) 8:05 AM) [facility] [id number] 14:05:00 Test Item Value Reference Range Interpretation Comments POC UA Turbidity (test Clear *NA*(04/27/19 code = POC UA Turbidity) 8:05 AM) [facility] [id number] 14:05:00 Test Item Value Reference Range Interpretation Comments POC UA SG (test code = POC UA SG) 1.015 1 [facility] [id number] 14:05:00 Test Item Value Reference Range Interpretation Comments POC UA pH (test code = POC UA pH) 6.0 1 5.0-8.0 [facility] [id number] 14:05:00 Test Item Value Reference Range Interpretation Comments POC UA Prot (test code = POC UA >=300 mg/dL Prot) [facility] [id number] 14:05:00 Test Item Value Reference Range Interpretation Comments POC UA Glu (test code = POC UA Negative mg/dL Glu) [facility] [id number] 14:05:00 Test Item Value Reference Range Interpretation Comments POC UA Ket (test code = POC UA Negative mg/dL Ket) [facility] [id number] 14:05:00 Test Item Value Reference Range Interpretation Comments POC UA Bili (test Negative *NA*(04/27/19 code = POC UA Bili) 8:05 AM) [facility] [id number] 14:05:00 Test Item Value Reference Range Interpretation Comments POC UA Bld (test code Trace *ABN*(04/27/19 = POC UA Bld) 8:05 AM) [facility] [id number] 14:05:00 Test Item Value Reference Range Interpretation Comments POC UA Uro (test code = POC UA Uro) 0.2 0.1-1.0 [facility] [id number] 14:05:00 Test Item Value Reference Range Interpretation Comments POC UA Nit (test code Negative *NA*(04/27/19 = POC UA Nit) 8:05 AM) [facility] [id number] 14:05:00 Test Item Value Reference Range Interpretation Comments POC UA LeukEst (test Negative *NA*(04/27/19 code = POC UA LeukEst) 8:05 AM) [facility] [id number] 14:05:00 Test Item Value Reference Range Interpretation Comments POC UA Color (test Yellow *NA*(04/27/19 code = POC UA Color) 8:05 AM) [facility] [id number] 14:05:00 Test Item Value Reference Range Interpretation Comments POC UA Turbidity (test Clear *NA*(04/27/19 code = POC UA Turbidity) 8:05 AM) [facility] [id number] 14:05:00 Test Item Value Reference Range Interpretation Comments POC UA SG (test code = POC UA SG) 1.015 1 [facility] [id number] 14:05:00 Test Item Value Reference Range Interpretation Comments POC UA pH (test code = POC UA pH) 6.0 1 5.0-8.0 [facility] [id number] 14:05:00 Test Item Value Reference Range Interpretation Comments POC UA Prot (test code = POC UA >=300 mg/dL Prot) [facility] [id number] 14:05:00 Test Item Value Reference Range Interpretation Comments POC UA Glu (test code = POC UA Negative mg/dL Glu) [facility] [id number] 14:05:00 Test Item Value Reference Range Interpretation Comments POC UA Ket (test code = POC UA Negative mg/dL Ket) [facility] [id number] 14:05:00 Test Item Value Reference Range Interpretation Comments POC UA Bili (test Negative *NA*(04/27/19 code = POC UA Bili) 8:05 AM) [facility] AND [id number] 14:05:00 Test Item Value Reference Range Interpretation Comments POC UA Bld (test code Trace *ABN*(04/27/19 = POC UA Bld) 8:05 AM) [facility] AND [id number] 14:05:00 Test Item Value Reference Range Interpretation Comments POC UA Uro (test code = POC UA Uro) 0.2 0.1-1.0 [facility] AND [id number] 14:05:00 Test Item Value Reference Range Interpretation Comments POC UA Nit (test code Negative *NA*(04/27/19 = POC UA Nit) 8:05 AM) [facility] AND [id number] 14:05:00 Test Item Value Reference Range Interpretation Comments POC UA LeukEst (test Negative *NA*(04/27/19 code = POC UA LeukEst) 8:05 AM) [facility]2020-01-15 13:10:00 Test Item Value Reference Range Interpretation Comments Ferritin Lvl (test code = Ferritin Lvl) 237 22-275 [facility]2020-01-15 13:10:00 Test Item Value Reference Range Interpretation Comments Iron (test code = Iron) 46 45-160 [facility]2020-01-15 13:10:00 Test Item Value Reference Range Interpretation Comments TIBC (test code = TIBC) 300 228-428 [facility]2020-01-15 13:10:00 Test Item Value Reference Range Interpretation Comments UIBC (test code = UIBC) 254 110-370 [facility]2020-01-15 13:10:00 Test Item Value Reference Range Interpretation Comments % Satur Fe (test code = % Satur Fe) 15 12-[address] [facility]2020-01-15 13:10:00 Test Item Value Reference Range Interpretation Comments Glucose Lvl (test code = Glucose Lvl) 74 70-[address] [facility]2020-01-15 13:10:00 Test Item Value Reference Range Interpretation Comments BUN (test code = BUN) 43 7-[address] [facility]2020-01-15 13:10:00 Test Item Value Reference Range Interpretation Comments Creatinine Lvl (test code = Creatinine 4.40 0.50-1.40 Lvl) [facility]2020-01-15 13:10:00 Test Item Value Reference Range Interpretation Comments Sodium Lvl (test code = Sodium Lvl) 143 135-145 [place] 498820-01-15 13:10:00 Test Item Value Reference Range Interpretation Comments Potassium Lvl (test code = Potassium 3.9 3.5-5.1 Lvl) [place] 498820-01-15 13:10:00 Test Item Value Reference Range Interpretation Comments Chloride Lvl (test code = Chloride Lvl) 109 95-109 [place] 498820-01-15 13:10:00 Test Item Value Reference Range Interpretation Comments CO2 (test code = CO2) 26 24-32 [place] 498820-01-15 13:10:00 Test Item Value Reference Range Interpretation Comments Calcium Lvl (test code = Calcium Lvl) 8.5 8.5-10.5 [place] 498820-01-15 13:10:00 Test Item Value Reference Range Interpretation Comments Total Protein (test code = Total 7.5 6.4-8.4 Protein) [facility]2020-01-15 13:10:00 Test Item Value Reference Range Interpretation Comments Albumin Lvl (test code = Albumin Lvl) 3.4 3.5-5.0 [place] 498820-01-15 13:10:00 Test Item Value Reference Range Interpretation Comments ALT (test code = ALT) 16 See_Comment [Auto mated message] The system which [employer] nerated this result transmit nicko reference range : <=65. The reference range was not used to interpr et this result as adebayo l/abnormal. [place] 498820-01-15 13:10:00 Test Item Value Reference Range Interpretation Comments AST (test code = AST) 11 See_Comment [Auto mated message] The system which [employer] nerated this result transmit nicko reference range : <=37. The reference range was not used to interpr et this result as adebayo l/abnormal. [place] 498820-01-15 13:10:00 Test Item Value Reference Range Interpretation Comments Alk Phos (test code = Alk Phos) 68 39-136 [place] 498820-01-15 13:10:00 Test Item Value Reference Range Interpretation Comments Bili Total (test code = Bili Total) 0.3 0.2-1.[address] [facility]2020-01-15 13:10:00 Test Item Value Reference Range Interpretation Comments AGAP (test code = AGAP) 11.9 10.0-20.[address] [facility]2020-01-15 13:10:00 Test Item Value Reference Range Interpretation Comments B/C Ratio (test code = B/C Ratio) 10 1 6-[address] [facility]2020-01-15 13:10:00 Test Item Value Reference Range Interpretation Comments Globulin (test code = Globulin) 4.1 2.7-4.[address] [facility]2020-01-15 13:10:00 Test Item Value Reference Range Interpretation Comments A/G Ratio (test code = A/G Ratio) 0.8 1 0.7-1.[address] [facility]2020-01-15 13:10:00 Test Item Value Reference Range Interpretation Comments eGFR (test code = eGFR) [address] [facility]2020-01-15 13:10:00 Test Item Value Reference Range Interpretation Comments Magnesium Lvl (test code = Magnesium 1.2 1.8-2.4 Lvl) [facility]2020-01-15 13:10:00 Test Item Value Reference Range Interpretation Comments Phosphorus (test code = Phosphorus) 3.9 2.5-4.[address] [facility]2020-01-15 13:10:00 Test Item Value Reference Range Interpretation Comments Uric Acid (test code = Uric Acid) 7.1 3.8-8.[address] [facility]2020-01-15 13:10:00 Test Item Value Reference Range Interpretation Comments Vitamin D, 25-OH, Total (test code = 42.0 30.0-100.0 Vitamin D, 25-OH, Total) [facility]2020-01-15 13:10:00 Test Item Value Reference Range Interpretation Comments LDH (test code = LDH) 164 98-[address] [facility]2020-01-15 13:10:00 Test Item Value Reference Range Interpretation Comments Creatinine Lvl (test code = Creatinine 4.39 0.50-1.40 Lvl) [place] 498820-01-15 13:10:00 Test Item Value Reference Range Interpretation Comments eGFR (test code = eGFR) 13 [facility] [id number] 13:10:00 Test Item Value Reference Range Interpretation Comments Phencyclidine Scr (test code = Negative Phencyclidine Scr) [facility]DR[facility] [id number] 13:10:00 Test Item Value Reference Range Interpretation Comments Kaitlin Scr (test code = Kaitlin Scr) Negative [facility] [id number] 13:10:00 Test Item Value Reference Range Interpretation Comments Cannab Scr (test code = Cannab Scr) Negative [facility] [id number] 13:10:00 Test Item Value Reference Range Interpretation Comments Methadone Scr (test code = Methadone Negative Scr) [facility] [id number] 13:10:00 Test Item Value Reference Range Interpretation Comments Cocaine Scr (test code = Cocaine Negative Scr) [facility]DR[facility] [id number] 13:10:00 Test Item Value Reference Range Interpretation Comments Benzodiaz Scr (test code = Benzodiaz Negative Scr) [facility] [id number] 13:10:00 Test Item Value Reference Range Interpretation Comments Amph Scr (test code = Amph Scr) Negative [facility] [employer] [id number] 13:10:00 Test Item Value Reference Range Interpretation Comments Opiate Scr (test code = Opiate Scr) Positive [facility] PasoNewCross TechnologiesDRUG [id number] 13:10:00 Test Item Value Reference Range Interpretation Comments 6-Acetylmor Scr (test code = Negative 6-Acetylmor Scr) [facility] PasoNewCross TechnologiesDRUG [id number] 13:10:00 Test Item Value Reference Range Interpretation Comments Opiate Qnt (test code = Opiate Qnt) Positive [facility] PasoSqrdjiuUBFRKFTOCE7479-11-70 13:10:00 Test Item Value Reference Range Interpretation Comments PT (test code = PT) 12.8 s 12.0-14.7 [facility] PasoNzetzidINQVBTCSHV0209-59-43 13:10:00 Test Item Value Reference Range Interpretation Comments INR (test code = INR) 0.96 1 0.85-1.17 [facility] PasoGdkjhrvLLNSJNUPDW6651-46-81 13:10:00 Test Item Value Reference Range Interpretation Comments PTT (test code = PTT) 33.5 s 22.9-35.8 [facility]IypwzwvVSHDYBXEIV0309-54-82 13:10:00 Test Item Value Reference Range Interpretation Comments WBC (test code = WBC) 8.5 3.7-10.4 [facility] HospitalPsstfekYOTKIDBYSH4888-47-07 13:10:00 Test Item Value Reference Range Interpretation Comments RBC (test code = RBC) 4.31 4.70-6.10 [facility] HospitalUwkjiihTXPVLQJQGI8297-74-67 13:10:00 Test Item Value Reference Range Interpretation Comments Hgb (test code = Hgb) 12.6 14.0-18.0 [facility] HospitalIpeehzgWXASPOZHYA9137-43-94 13:10:00 Test Item Value Reference Range Interpretation Comments Hct (test code = Hct) 39.5 42.0-54.0 [facility] HospitalJbwkmqzTDDHJUCGVJ1158-34-55 13:10:00 Test Item Value Reference Range Interpretation Comments MCV (test code = MCV) 91.6 80.0-94.0 [facility] HospitalMaavgsbXRPFIBXWSO6502-08-79 13:10:00 Test Item Value Reference Range Interpretation Comments MCH (test code = MCH) 29.3 pg 27.0-31.0 [facility] HospitalMpzoxscKOLZIZLLDQ2746-57-91 13:10:00 Test Item Value Reference Range Interpretation Comments MCHC (test code = MCHC) 32.0 32.0-36.0 [facility] HospitalGavogilISRACATSLO0963-69-81 13:10:00 Test Item Value Reference Range Interpretation Comments RDW (test code = RDW) 15.5 11.5-14.5 [facility] HospitalMvnnwepNZXTECWDHL6111-50-93 13:10:00 Test Item Value Reference Range Interpretation Comments Platelet (test code = Platelet) 215 133-450 [facility] HospitalKqrftfaKRYMDYNEET3182-03-57 13:10:00 Test Item Value Reference Range Interpretation Comments MPV (test code = MPV) 9.0 7.4-10.4 [facility] HospitalOnvvbhtILSLZANDNB0047-56-35 13:10:00 Test Item Value Reference Range Interpretation Comments AT III Func (test code = AT III Func) 118 77-140 [facility] HospitalEcnpovvFSRKBXETSD6432-65-80 13:10:00 Test Item Value Reference Range Interpretation Comments F5 Leiden PCR (test Negative (03/16/19 7:10 code = F5 Leiden PCR) AM) [facility] HospitalWtwpucpMNWUVXUWHQ4305-37-07 13:10:00 Test Item Value Reference Range Interpretation Comments F5 Leiden Intrp (test code = F5 See note Leiden Intrp) [facility] HospitalAzlfhynPSQHUEXPMZ6489-35-83 13:10:00 Test Item Value Reference Range Interpretation Comments dRVV Ratio (test code = dRVV Ratio) 1.26 1 [facility] HospitalMxedujlETCRDYEJRJ3471-87-43 13:10:00 Test Item Value Reference Range Interpretation Comments Plt Neut Test (test code = Plt Neut Negative Test) [place] 352160-01-15 13:10:00 Test Item Value Reference Range Interpretation Comments Hex Phos N (test code Negative (03/16/19 7:10 = Hex Phos N) AM) [place] 352160-01-15 13:10:00 Test Item Value Reference Range Interpretation Comments Lup Interp (test Negative for lupus code = Lup Interp) anticoagulant (prolonged dRVVT, negative hexagonal phospholipid neutralization, and negative Platelet Neutralization procedure). Thrombin Time is normal (15.5 sec) which rules out heparin as interference substance. CPT: 87145 [facility] HospitalKmnvxgiEICIYRDRXD2841-53-54 13:10:00 Test Item Value Reference Range Interpretation Comments F2 Mutation PCR (test Negative (03/16/19 7:10 code = F2 Mutation PCR) AM) [facility] HospitalSiylczvBFEWWPDGSZ6380-27-54 13:10:00 Test Item Value Reference Range Interpretation Comments F2 Mut Interp (test code = F2 Mut See note Interp) [facility] HospitalVsqqpbyIJRSDGPAIM1242-16-09 13:10:00 Test Item Value Reference Range Interpretation Comments Protein C Func (test code = Protein C 118 72-147 Func) [place] 352160-01-15 13:10:00 Test Item Value Reference Range Interpretation Comments Protein S Func (test code = Protein S 113 54-137 Func) [place] 352160-01-15 13:10:00 Test Item Value Reference Range Interpretation Comments Segs (test code = Segs) 58.7 45.0-75.0 [place] 352160-01-15 13:10:00 Test Item Value Reference Range Interpretation Comments Lymphocytes (test code = Lymphocytes) 30.5 20.0-40.0 [facility] HospitalKihinrnYXDZHXHJBO4567-42-15 13:10:00 Test Item Value Reference Range Interpretation Comments Monocytes (test code = Monocytes) 8.0 2.0-12.0 [place] [facility]HswqiwpORYKHZHRVX2092-73-65 13:10:00 Test Item Value Reference Range Interpretation Comments Eosinophils (test code = 2.2 See_Comment [A utomated message] The Eosinophils) system which ge nerated this result tra nsmitted reference range : <=4.0. The reference r carlos was not used to int erpret this result as normal/abnormal . [facility]YnxgoyjFHSCEESWGW5074-77-21 13:10:00 Test Item Value Reference Range Interpretation Comments Basophils (test code = 0.6 See_Comment [Aut omated message] The Basophils) system which ge nerated this result tra nsmitted reference range : <=1.0. The reference r carlos was not used to int erpret this result as normal/abnormal . [facility] HospitalDiwhwizQDTBKSLVOD0060-10-14 13:10:00 Test Item Value Reference Range Interpretation Comments Neutrophils # (test code = Neutrophils 5.0 1.5-8.1 #) [facility] HospitalMmffhrcJPWAVRMEMY1908-09-95 13:10:00 Test Item Value Reference Range Interpretation Comments Lymphocytes # (test code = Lymphocytes 2.6 1.0-5.5 #) [facility] HospitalOgqcdodZVWVXKXTGV9493-62-76 13:10:00 Test Item Value Reference Range Interpretation Comments Monocytes # (test code 0.7 See_Comment [Aut omated message] The = Monocytes #) system which generated this result tra nsmitted reference range : <=0.8. The reference r carlos was not used to int erpret this result as normal/abnormal . [facility] HospitalTmrphzzDSBBSYOBMZ8550-09-81 13:10:00 Test Item Value Reference Range Interpretation Comments Eosinophils # (test code 0.2 See_Comment [A utomated message] The = Eosinophils #) system whic h generated this result tra nsmitted reference range : <=0.5. The reference r carlos was not used to int erpret this result as normal/abnormal . [facility]evilleZypkyilXKYFYIMXWP4997-67-81 13:10:00 Test Item Value Reference Range Interpretation Comments Cystatin C (test code = Cystatin C) 3.70 0.62-1.16 [facility]evilleTteowvtBVVERYISYZ6650-30-75 13:10:00 Test Item Value Reference Range Interpretation Comments Cardiolipin IgA (test code = no gt Cardiolipin IgA) [facility]evilleAhhzadnXCJDUUQBGG0945-31-84 13:10:00 Test Item Value Reference Range Interpretation Comments Cardiolipin IgG (test code = no gt Cardiolipin IgG) [facility]evilleQuqijknDDGLGBUXHF1746-73-73 13:10:00 Test Item Value Reference Range Interpretation Comments Cardiolipin IgM (test code = 0.8 Cardiolipin IgM) [facility]evilleUoudsdpCQBUMSKWIQ8030-55-85 13:10:00 Test Item Value Reference Range Interpretation Comments Homocyst Tot (test code = Homocyst Tot) 16.5 3.7-13.9 [facility] BeevilleInnmuinIXYPZOGZCD7051-63-22 13:10:00 Test Item Value Reference Range Interpretation Comments Albumin % (test code = Albumin %) 51.0 55.8-66.1 [facility] BeevilleTfdvvtrIYEDYIWOLI0161-92-49 13:10:00 Test Item Value Reference Range Interpretation Comments Alpha 1 % (test code = Alpha 1 %) 8.6 2.8-4.9 [place] [id number] 13:10:00 Test Item Value Reference Range Interpretation Comments Alpha 2 % (test code = Alpha 2 %) 14.6 7.0-11.9 [facility] BeevilleXrudnkrVVRPGTLFCV3682-10-74 13:10:00 Test Item Value Reference Range Interpretation Comments Beta % (test code = Beta %) 12.4 7.8-13.7 [place] [id number] 13:10:00 Test Item Value Reference Range Interpretation Comments Gamma % (test code = Gamma %) 13.4 11.1-18.7 [place] 427540-01-15 13:10:00 Test Item Value Reference Range Interpretation Comments Albumin (SPE) (test code = Albumin 3.83 3.57-5.55 (SPE)) [facility]evilleEfyenibFNEOKSZUOH3563-72-67 13:10:00 Test Item Value Reference Range Interpretation Comments Alpha 1 Glob (test code = Alpha 1 Glob) 0.65 0.18-0.41 [place] [id number] 13:10:00 Test Item Value Reference Range Interpretation Comments Alpha 2 Glob (test code = Alpha 2 Glob) 1.10 0.45-1.00 [place] 427540-01-15 13:10:00 Test Item Value Reference Range Interpretation Comments Beta Glob (test code = Beta Glob) 0.93 0.50-1.15 [facility]woodCejllirRFKYVHYANQ5327-40-23 13:10:00 Test Item Value Reference Range Interpretation Comments Gamma Glob (test code = Gamma Glob) 1.01 0.71-1.57 [facility]woodDhpkpfoUZKZOHFODS3956-89-12 13:10:00 Test Item Value Reference Range Interpretation Comments Tot Prot (SPE) (test code = Tot Prot 7.5 6.4-8.4 (SPE)) [facility]evilleWfxyuguCHXWBBZWCN5722-01-76 13:10:00 Test Item Value Reference Range Interpretation [...] and concur with the resident's interpretation. CPT 89999-TV [facility]woodCwykaweTIBXSEXNDQ1762-42-20 13:10:00 Test Item Value Reference Range Interpretation Comments [place] Free Light Chains (test code = 110.41 3.30-19.40 [place] Free Light Chains) [facility]evilleIcclfzqVJOGEOFORX7726-90-77 13:10:00 Test Item Value Reference Range Interpretation Comments Lambda Free Light Chains (test code = 40.85 5.70-26.30 Lambda Free Light Chains) [facility]woodIhppvjoCADILATWEZ5279-78-71 13:10:00 Test Item Value Reference Range Interpretation Comments [place]/Lambda Free Light Chains Ratio 2.70 0.26-1.65 (test code = [place]/Lambda Free Light Chains Ratio) [facility]woodNeauyzhCQTQEMBYBH1000-25-75 13:10:00 Test Item Value Reference Range Interpretation Comments CMV IgG (test code = Reactive *ABN*(03/16/19 CMV IgG) 7:10 AM) [facility]evilleGtvlbrjDHCDUSMDZD0019-54-14 13:10:00 Test Item Value Reference Range Interpretation Comments EBV VCA IgG (test code = EBV VCA IgG) no gt [facility]woodVzbxwkuTCYURVTQRP3696-00-47 13:10:00 Test Item Value Reference Range Interpretation Comments HIV Ag/Ab 4th Gen Negative *NA*(03/16/19 (test code = HIV 7:10 AM) Ag/Ab 4th Gen) [facility]evilleFfzogunMIFXANLLMR1480-39-78 13:10:00 Test Item Value Reference Range Interpretation Comments Hep A Tot (test code Positive *NA*(03/16/19 = Hep A Tot) 7:10 AM) [facility]evilleIywegnbAUDNVPLMFD9971-23-22 13:10:00 Test Item Value Reference Range Interpretation Comments Hep Bs Ab (test code = Hep Bs Ab) no gt [facility]woodWqyqszbSXVZBDAPIF7366-46-68 13:10:00 Test Item Value Reference Range Interpretation Comments Hep B Core Ab (test Negative *NA*(03/16/19 code = Hep B Core Ab) 7:10 AM) [facility]evilleZqcrjpxJDTCHIYRSK4287-70-77 13:10:00 Test Item Value Reference Range Interpretation Comments Hep Bs Ag (test code Negative *NA*(03/16/19 = Hep Bs Ag) 7:10 AM) [facility]evilleTdthyyxHRMPOWIELC1372-38-22 13:10:00 Test Item Value Reference Range Interpretation Comments Hep C Ab (test code = Negative *NA*(03/16/19 Hep C Ab) 7:10 AM) [facility] BeevilleMcmbwnwOKSGEFBMMH9011-24-07 13:10:00 Test Item Value Reference Range Interpretation Comments HSV 2 IgG (test code = HSV 2 IgG) no gt [facility] BeevilleMoabcccLPMYGPSBPW1262-25-65 13:10:00 Test Item Value Reference Range Interpretation Comments HSV 1 IgG (test code = HSV 1 IgG) no gt [facility] KingwoodSutsejrAYQDGYRACV3335-85-29 13:10:00 Test Item Value Reference Range Interpretation Comments T-Spot.TB (test code Negative (03/16/19 7:10 = T-Spot.TB) AM) [facility] BeevilleJciyqcoGDAYSRJOGG2934-51-41 13:10:00 Test Item Value Reference Range Interpretation Comments Treponemal Ab (test code Non-Reactive = Treponemal Ab) *NA*(03/16/19 7:10 AM) [facility]evilleGyfvcsvAYLBTDETQS3954-26-65 13:10:00 Test Item Value Reference Range Interpretation Comments Varicella IgG (test code = Varicella no gt IgG) [facility] KingwoodLizvcvvLMEMUGXMQZ4864-47-02 13:10:00 Test Item Value Reference Range Interpretation Comments Mumps IgG (test code = Mumps IgG) 5.1 [facility]QzwdnovMDFZAMIZGB3037-03-55 13:10:00 Test Item Value Reference Range Interpretation Comments Rubella IgG (test code = Rubella IgG) no gt [facility] PasoGwjeqegUYQCQSFHLP4591-11-17 13:10:00 Test Item Value Reference Range Interpretation Comments Rubeola IgG (test code = Rubeola IgG) 2.0 [facility] PasoUhbnvbyXFEPCEEDBH9780-16-93 13:10:00 Test Item Value Reference Range Interpretation Comments KAREN Ser Pattern A distinct monoclonal (test code = KAREN Ser band is present in the Pattern) IgM izabella with a corresponding faint band in the kappa light chain izabella. The polyclonal gamma globulin background is preserved in all lanes. [facility] PasoHmfanqfCHHXRLSJCR8466-33-42 13:10:00 Test Item Value Reference Range Interpretation [...] and concur with the resident's interpretation. CPT 27438-OU [facility] PasoWxczyijZXBCZS8051-03-85 13:10:00 Test Item Value Reference Range Interpretation Comments Trig (test code = Trig) 138 [facility] PasoLxqezyqRLKYXC6724-73-26 13:10:00 Test Item Value Reference Range Interpretation Comments Chol (test code = Chol) 183 [facility] PasoIqtqfmjBKFLYE3728-95-97 13:10:00 Test Item Value Reference Range Interpretation Comments HDL (test code = HDL) 40 [facility] PasoUvoqxhmQLISTZ8163-77-59 13:10:00 Test Item Value Reference Range Interpretation Comments CHD Risk (test code = CHD Risk) 4.58 1 4.00-7.30 [facility] PasoOaantrdXKMNTX5209-68-30 13:10:00 Test Item Value Reference Range Interpretation Comments LDL (Calculated) (test code = LDL 115 (Calculated)) [facility] PasoSycbpdyZXOULW3510-31-10 13:10:00 Test Item Value Reference Range Interpretation Comments VLDL (test code = VLDL) 28 1 [facility] PasoannPARASITOLOGY - [id number] 13:10:00 Test Item Value Reference Range Interpretation Comments Strongyloides Antibodies (test code Negative = Strongyloides Antibodies) [facility] PasoannPARATHYROID JDODKMD0039-83-08 13:10:00 Test Item Value Reference Range Interpretation Comments PTH Intact (test code = PTH Intact) 579.6 18.4-80.1 [facility] PasoannSPECIAL RSHMWLGRG4080-48-77 13:10:00 Test Item Value Reference Range Interpretation Comments Nicotine Lvl (test code = None Detected Nicotine Lvl) [facility] PasoannSPECIAL XOTDGTYZM1347-45-14 13:10:00 Test Item Value Reference Range Interpretation Comments Cotinine Lvl (test code = None Detected Cotinine Lvl) [facility] PasoannGAR[facility]ITALIAL MKOKKVKNT0652-68-24 13:10:00 Test Item Value Reference Range Interpretation Comments Hgb A1C (test code = Hgb A1C) 6.1 [facility]woodSPECIAL MKRHNODYK6853-89-81 13:10:00 Test Item Value Reference Range Interpretation Comments PSA (test code = PSA) 1.34 See_Comment [Auto mated message] The system which ge nerated this result transmit nicko reference range : <=4.00. The reference r carlos was not used to interpr et this result as adebayo l/abnormal. [facility] ZenURINE AND [id number] 13:10:00 Test Item Value Reference Range Interpretation Comments UA WBC (test code = 1 See_Comment [Automa nicko message] The UA WBC) system which ge nerated this result transmit nicko reference range : <=5. The reference range was not used to interpr et this result as adebayo l/abnormal. [facility] Eshter AND [id number] 13:10:00 Test Item Value Reference Range Interpretation Comments UA RBC (test code = 1 See_Comment [Automa nicko message] The UA RBC) system which ge nerated this result transmit nicko reference range : <=2. The reference range was not used to interpr et this result as adebayo l/abnormal. [facility] [id number] 13:10:00 Test Item Value Reference Range Interpretation Comments UA Color (test code = Yellow *NA*(03/16/19 UA Color) 7:10 AM) [facility] [id number] 13:10:00 Test Item Value Reference Range Interpretation Comments UA Turbidity (test code = Clear (03/16/19 7:10 UA Turbidity) AM) [facility] [id number] 13:10:00 Test Item Value Reference Range Interpretation Comments UA Spec Grav (test code = UA Spec 1.010 1 Grav) [facility] [id number] 13:10:00 Test Item Value Reference Range Interpretation Comments UA pH (test code = UA pH) 6.0 1 5.0-8.0 [facility] [id number] 13:10:00 Test Item Value Reference Range Interpretation Comments UA Protein (test code = UA Protein) 100 mg/dL [facility] [place] [facility] [id number] 13:10:00 Test Item Value Reference Range Interpretation Comments UA Glucose (test code = UA Glucose) 100 mg/dL [facility] AND [id number] 13:10:00 Test Item Value Reference Range Interpretation Comments UA Ketones (test code Negative *NA*(03/16/19 = UA Ketones) 7:10 AM) [facility] [id number] 13:10:00 Test Item Value Reference Range Interpretation Comments UA Bili (test code = Negative *NA*(03/16/19 UA Bili) 7:10 AM) [facility] [place] [facility] [id number] 13:10:00 Test Item Value Reference Range Interpretation Comments UA Blood (test code = Trace *ABN*(03/16/19 UA Blood) 7:10 AM) [facility] [place] [facility] [id number] 13:10:00 Test Item Value Reference Range Interpretation Comments UA Urobilinogen (test code = UA 0.2 0.1-1.0 Urobilinogen) [facility] [id number] 13:10:00 Test Item Value Reference Range Interpretation Comments UA Nitrite (test code Negative (03/16/19 7:10 = UA Nitrite) AM) [facility] [id number] 13:10:00 Test Item Value Reference Range Interpretation Comments UA Leuk Est (test Negative (03/16/19 7:10 code = UA Leuk Est) AM) [facility] HermannURINE AND [id number] 13:10:00 Test Item Value Reference Range Interpretation Comments UA Sq Epi (test code = None Seen (03/16/19 7:10 UA Sq Epi) AM) [facility] [id number] 13:10:00 Test Item Value Reference Range Interpretation Comments U Creatinine (test code = U Creatinine) 74.20 [facility]2020-01-15 13:10:00 Test Item Value Reference Range Interpretation Comments U Alb (test code = U Alb) 892.0 [facility]2020-01-15 13:10:00 Test Item Value Reference Range Interpretation Comments U Alb/Crea (test code = U Alb/Crea) 1202.2 [facility]2020-01-15 13:10:00 Test Item Value Reference Range Interpretation Comments U Creatinine (test code = U Creatinine) 74.20 [facility]2020-01-15 13:10:00 Test Item Value Reference Range Interpretation Comments U Protein (test code = U Protein) 149.5 [facility]2020-01-15 13:10:00 Test Item Value Reference Range Interpretation Comments U Prot/Creat (test code = U 2.01 1 Prot/Creat) [facility]2020-01-15 13:10:00 Test Item Value Reference Range Interpretation Comments U Creatinine (test code = U Creatinine) 74.20 [facility]2020-01-15 13:10:00 Test Item Value Reference Range Interpretation Comments U Alb (test code = U Alb) 892.0 [facility]2020-01-15 13:10:00 Test Item Value Reference Range Interpretation Comments U Alb/Crea (test code = U Alb/Crea) 1202.2 [facility]woodVIRAL [id number] 13:10:00 Test Item Value Reference Range Interpretation Comments T cruzi ([place]ag[place]) Ab (test code = Non Reactive T cruzi ([place]ag[place]) Ab) [facility] [id number] 13:10:00 Test Item Value Reference Range Interpretation Comments W Nile Ab IgG (test code = W Nile Ab Negative IgG) [facility] GTVSLFBG9469-18-05 13:10:00 Test Item Value Reference Range Interpretation Comments W Nile Ab IgM (test code = W Nile Ab Negative IgM) [facility] [id number] 13:10:00 Test Item Value Reference Range Interpretation Comments Ferritin Lvl (test code = Ferritin Lvl) 237 22-275 [facility]2020-01-15 13:10:00 Test Item Value Reference Range Interpretation Comments Iron (test code = Iron) 46 45-160 [facility]2020-01-15 13:10:00 Test Item Value Reference Range Interpretation Comments TIBC (test code = TIBC) 300 228-428 [facility]2020-01-15 13:10:00 Test Item Value Reference Range Interpretation Comments UIBC (test code = UIBC) 254 110-370 [facility]2020-01-15 13:10:00 Test Item Value Reference Range Interpretation Comments % Satur Fe (test code = % Satur Fe) 15 12-[address] [facility]2020-01-15 13:10:00 Test Item Value Reference Range Interpretation Comments Glucose Lvl (test code = Glucose Lvl) 74 70-[address] [facility]2020-01-15 13:10:00 Test Item Value Reference Range Interpretation Comments BUN (test code = BUN) 43 7-[address] [facility]2020-01-15 13:10:00 Test Item Value Reference Range Interpretation Comments Creatinine Lvl (test code = Creatinine 4.40 0.50-1.40 Lvl) [facility]2020-01-15 13:10:00 Test Item Value Reference Range Interpretation Comments Sodium Lvl (test code = Sodium Lvl) 143 135-[address] [facility]2020-01-15 13:10:00 Test Item Value Reference Range Interpretation Comments Potassium Lvl (test code = Potassium 3.9 3.5-5.1 Lvl) [facility]2020-01-15 13:10:00 Test Item Value Reference Range Interpretation Comments Chloride Lvl (test code = Chloride Lvl) 109 95-109 [place] [id number] 13:10:00 Test Item Value Reference Range Interpretation Comments CO2 (test code = CO2) 26 24-[address] [facility]2020-01-15 13:10:00 Test Item Value Reference Range Interpretation Comments Calcium Lvl (test code = Calcium Lvl) 8.5 8.5-10.[address] [facility]2020-01-15 13:10:00 Test Item Value Reference Range Interpretation Comments Total Protein (test code = Total 7.5 6.4-8.4 Protein) [facility]woodCHEM [id number] 13:10:00 Test Item Value Reference Range Interpretation Comments Albumin Lvl (test code = Albumin Lvl) 3.4 3.5-5.0 [facility] PasoUnmetric [id number] 13:10:00 Test Item Value Reference Range Interpretation Comments ALT (test code = ALT) 16 See_Comment [Auto mated message] The system which ge nerated this result transmit nicko reference range : <=65. The reference range was not used to interpr et this result as adebayo l/abnormal. [facility] PasoUnmetric [id number] 13:10:00 Test Item Value Reference Range Interpretation Comments AST (test code = AST) 11 See_Comment [Auto mated message] The system which ge nerated this result transmit nicko reference range : <=37. The reference range was not used to interpr et this result as adebayo l/abnormal. [facility] PasoUn[facility] [id number] 13:10:00 Test Item Value Reference Range Interpretation Comments Alk Phos (test code = Alk Phos) 68 39-136 [facility] PasoUn[facility] [id number] 13:10:00 Test Item Value Reference Range Interpretation Comments Bili Total (test code = Bili Total) 0.3 0.2-1.3 [facility] Paso[facility] [id number] 13:10:00 Test Item Value Reference Range Interpretation Comments AGAP (test code = AGAP) 11.9 10.0-20.0 [facility] [id number] 13:10:00 Test Item Value Reference Range Interpretation Comments B/C Ratio (test code = B/C Ratio) 10 1 6-25 [facility] [place]le [id number] 13:10:00 Test Item Value Reference Range Interpretation Comments Globulin (test code = Globulin) 4.1 2.7-4.2 [facility] [place] [id number] 13:10:00 Test Item Value Reference Range Interpretation Comments A/G Ratio (test code = A/G Ratio) 0.8 1 0.7-1.6 [facility] [id number] 13:10:00 Test Item Value Reference Range Interpretation Comments eGFR (test code = eGFR) 13 [facility] [place] [id number] 13:10:00 Test Item Value Reference Range Interpretation Comments Magnesium Lvl (test code = Magnesium 1.2 1.8-2.4 Lvl) [facility]2020-01-15 13:10:00 Test Item Value Reference Range Interpretation Comments Phosphorus (test code = Phosphorus) 3.9 2.5-4.5 [place] [id number] 13:10:00 Test Item Value Reference Range Interpretation Comments Uric Acid (test code = Uric Acid) 7.1 3.8-8.[address] [facility]2020-01-15 13:10:00 Test Item Value Reference Range Interpretation Comments Vitamin D, 25-OH, Total (test code = 42.0 30.0-100.0 Vitamin D, 25-OH, Total) [facility]2020-01-15 13:10:00 Test Item Value Reference Range Interpretation Comments LDH (test code = LDH) 164 98-[address] [facility]2020-01-15 13:10:00 Test Item Value Reference Range Interpretation Comments Creatinine Lvl (test code = Creatinine 4.39 0.50-1.40 Lvl) [facility]2020-01-15 13:10:00 Test Item Value Reference Range Interpretation Comments eGFR (test code = eGFR) 13 [facility]Eng[facility] [id number] 13:10:00 Test Item Value Reference Range Interpretation Comments Phencyclidine Scr (test code = Negative Phencyclidine Scr) [facility]2020-01-15 13:10:00 Test Item Value Reference Range Interpretation Comments Kaitlin Scr (test code = Kaitlin Scr) Negative [facility]2020-01-15 13:10:00 Test Item Value Reference Range Interpretation Comments Cannab Scr (test code = Cannab Scr) Negative [facility]woodDR[facility] [id number] 13:10:00 Test Item Value Reference Range Interpretation Comments Methadone Scr (test code = Methadone Negative Scr) [facility]2020-01-15 13:10:00 Test Item Value Reference Range Interpretation Comments Cocaine Scr (test code = Cocaine Negative Scr) [facility]2020-01-15 13:10:00 Test Item Value Reference Range Interpretation Comments Benzodiaz Scr (test code = Benzodiaz Negative Scr) [facility]2020-01-15 13:10:00 Test Item Value Reference Range Interpretation Comments Amph Scr (test code = Amph Scr) Negative [facility]woodDR[facility] [id number] 13:10:00 Test Item Value Reference Range Interpretation Comments Opiate Scr (test code = Opiate Scr) Positive [facility]woodDR[facility] [id number] 13:10:00 Test Item Value Reference Range Interpretation Comments 6-Acetylmor Scr (test code = Negative 6-Acetylmor Scr) [facility]woodDR[facility] [id number] 13:10:00 Test Item Value Reference Range Interpretation Comments Opiate Qnt (test code = Opiate Qnt) Positive [facility] Ki[id number] 13:10:00 Test Item Value Reference Range Interpretation Comments PT (test code = PT) 12.8 s 12.0-14.7 [facility] SystemDazguvnANDRAYWYGG8008-10-26 13:10:00 Test Item Value Reference Range Interpretation Comments INR (test code = INR) 0.96 1 0.85-1.17 [facility]GribjrnSLCGBTECZL6207-20-29 13:10:00 Test Item Value Reference Range Interpretation Comments PTT (test code = PTT) 33.5 s 22.9-35.8 [facility] SystemFovrgymUEXLWTVUAA1603-68-35 13:10:00 Test Item Value Reference Range Interpretation Comments WBC (test code = WBC) 8.5 3.7-10.4 [facility] SystemJriwimfRNCBIYGFLD0660-51-18 13:10:00 Test Item Value Reference Range Interpretation Comments RBC (test code = RBC) 4.31 4.70-6.10 [facility]NqvudblRNSKUOKFZT8086-26-82 13:10:00 Test Item Value Reference Range Interpretation Comments Hgb (test code = Hgb) 12.6 14.0-18.0 [facility] SystemAzzrxnuXXVZBIYPUK5530-32-24 13:10:00 Test Item Value Reference Range Interpretation Comments Hct (test code = Hct) 39.5 42.0-54.0 [facility] SystemKzkgimmOJPVSDXJUD6513-36-10 13:10:00 Test Item Value Reference Range Interpretation Comments MCV (test code = MCV) 91.6 80.0-94.0 [facility] SystemOcsuhapYWWIBSWKOH2863-66-11 13:10:00 Test Item Value Reference Range Interpretation Comments MCH (test code = MCH) 29.3 pg 27.0-31.0 [facility] SystemMwksnvwPXDMJCLABM9952-75-72 13:10:00 Test Item Value Reference Range Interpretation Comments MCHC (test code = MCHC) 32.0 32.0-36.0 [facility]unnyqBRLYCJMGBH0282-88-29 13:10:00 Test Item Value Reference Range Interpretation Comments RDW (test code = RDW) 15.5 11.5-14.5 [facility] HospitalRjcagnkGRABIWDLDU3121-23-30 13:10:00 Test Item Value Reference Range Interpretation Comments Platelet (test code = Platelet) 215 133-450 [facility] HospitalBgqrpudNMJKGJXCLZ0137-56-90 13:10:00 Test Item Value Reference Range Interpretation Comments MPV (test code = MPV) 9.0 7.4-10.4 [facility] HospitalAsqipojRWKGPEDYPT9652-27-58 13:10:00 Test Item Value Reference Range Interpretation Comments AT III Func (test code = AT III Func) 118 77-140 [facility] HospitalMjnmqtrXGPXLKJCAX2397-86-83 13:10:00 Test Item Value Reference Range Interpretation Comments F5 Leiden PCR (test Negative (03/16/19 7:10 code = F5 Leiden PCR) AM) [facility] HospitalAitcxtdYBWNQHONWN7852-49-72 13:10:00 Test Item Value Reference Range Interpretation Comments F5 Leiden Intrp (test code = F5 See note Leiden Intrp) [facility] HospitalVwvdrabWMMPIXHJLX1479-31-53 13:10:00 Test Item Value Reference Range Interpretation Comments dRVV Ratio (test code = dRVV Ratio) 1.26 1 [facility] HospitalWhvcvkbINMHUYXZDI1897-49-75 13:10:00 Test Item Value Reference Range Interpretation Comments Plt Neut Test (test code = Plt Neut Negative Test) [facility] HospitalUdworjmTGWSECMYWN9018-49-57 13:10:00 Test Item Value Reference Range Interpretation Comments Hex Phos N (test code Negative (03/16/19 7:10 = Hex Phos N) AM) [facility] HospitalQgideirQRACNFLSCC8949-14-40 13:10:00 Test Item Value Reference Range Interpretation Comments Lup Interp (test Negative for lupus code = Lup Interp) anticoagulant (prolonged dRVVT, negative hexagonal phospholipid neutralization, and negative Platelet Neutralization procedure). Thrombin Time is normal (15.5 sec) which rules out heparin as interference substance. CPT: 39960 [facility] HospitalHvrukcaUINKBBAQLO9438-17-85 13:10:00 Test Item Value Reference Range Interpretation Comments F2 Mutation PCR (test Negative (03/16/19 7:10 code = F2 Mutation PCR) AM) [place] 352160-01-15 13:10:00 Test Item Value Reference Range Interpretation Comments F2 Mut Interp (test code = F2 Mut See note Interp) [place] 352160-01-15 13:10:00 Test Item Value Reference Range Interpretation Comments Protein C Func (test code = Protein C 118 72-147 Func) [place] 352160-01-15 13:10:00 Test Item Value Reference Range Interpretation Comments Protein S Func (test code = Protein S 113 54-137 Func) [place] 352160-01-15 13:10:00 Test Item Value Reference Range Interpretation Comments Segs (test code = Segs) 58.7 45.0-75.0 [place] [address]-01-15 13:10:00 Test Item Value Reference Range Interpretation Comments Lymphocytes (test code = Lymphocytes) 30.5 20.0-40.0 [place] [address]-01-15 13:10:00 Test Item Value Reference Range Interpretation Comments Monocytes (test code = Monocytes) 8.0 2.0-12.0 [place] 352160-01-15 13:10:00 Test Item Value Reference Range Interpretation Comments Eosinophils (test code = 2.2 See_Comment [A utomated message] The Eosinophils) system which nerated this result tra nsmitted reference range : <=4.0. The reference r carlos was not used to int erpret this result as normal/abnormal . [place] 352160-01-15 13:10:00 Test Item Value Reference Range Interpretation Comments Basophils (test code = 0.6 See_Comment [Aut omated message] The Basophils) system which ge nerated this result tra nsmitted reference range : <=1.0. The reference r carlos was not used to int erpret this result as normal/abnormal . [place] 352160-01-15 13:10:00 Test Item Value Reference Range Interpretation Comments Neutrophils # (test code = Neutrophils 5.0 1.5-8.1 #) [place] 352160-01-15 13:10:00 Test Item Value Reference Range Interpretation Comments Lymphocytes # (test code = Lymphocytes 2.6 1.0-5.5 #) [facility] HospitalWkqhtjtLXMHMHGJQV4195-71-43 13:10:00 Test Item Value Reference Range Interpretation Comments Monocytes # (test code 0.7 See_Comment [Aut omated message] The = Monocytes #) system which generated this result tra nsmitted reference range : <=0.8. The reference r carlos was not used to int erpret this result as normal/abnormal . [facility] HospitalEkpdnfnVDMHUDPJBX2520-42-27 13:10:00 Test Item Value Reference Range Interpretation Comments Eosinophils # (test code 0.2 See_Comment [A utomated message] The = Eosinophils #) system whic h generated this result tra nsmitted reference range : <=0.5. The reference r carlos was not used to int erpret this result as normal/abnormal . [facility]evilleFebajyrEBHXRSAADZ6854-98-72 13:10:00 Test Item Value Reference Range Interpretation Comments Cystatin C (test code = Cystatin C) 3.70 0.62-1.16 [facility]evilleZnnrtstQSCHIGTXPY2890-19-37 13:10:00 Test Item Value Reference Range Interpretation Comments Cardiolipin IgA (test code = no gt Cardiolipin IgA) [facility]evilleCywabdgHRGEXXTMRK0925-29-68 13:10:00 Test Item Value Reference Range Interpretation Comments Cardiolipin IgG (test code = no gt Cardiolipin IgG) [facility]evilleFuqmpkqEZUTYIYPHY8915-58-62 13:10:00 Test Item Value Reference Range Interpretation Comments Cardiolipin IgM (test code = 0.8 Cardiolipin IgM) [place] 427540-01-15 13:10:00 Test Item Value Reference Range Interpretation Comments Homocyst Tot (test code = Homocyst Tot) 16.5 3.7-13.9 [place] 427540-01-15 13:10:00 Test Item Value Reference Range Interpretation Comments Albumin % (test code = Albumin %) 51.0 55.8-66.1 [place] 427540-01-15 13:10:00 Test Item Value Reference Range Interpretation Comments Alpha 1 % (test code = Alpha 1 %) 8.6 2.8-4.9 [place] 427540-01-15 13:10:00 Test Item Value Reference Range Interpretation Comments Alpha 2 % (test code = Alpha 2 %) 14.6 7.0-11.9 [facility]woodUkbgokaPVDSIIAHDZ8764-60-92 13:10:00 Test Item Value Reference Range Interpretation Comments Beta % (test code = Beta %) 12.4 7.8-13.7 [facility]woodHpypfptAGTDBULPCN7244-33-70 13:10:00 Test Item Value Reference Range Interpretation Comments Gamma % (test code = Gamma %) 13.4 11.1-18.7 [facility]woodCulyrrtSRUVQDMCSX5815-13-12 13:10:00 Test Item Value Reference Range Interpretation Comments Albumin (SPE) (test code = Albumin 3.83 3.57-5.55 (SPE)) [facility]woodNaqpkuaJDFNFHHFVF4483-50-03 13:10:00 Test Item Value Reference Range Interpretation Comments Alpha 1 Glob (test code = Alpha 1 Glob) 0.65 0.18-0.41 [facility]woodXjvqyqjNALPCVIBNN2726-81-66 13:10:00 Test Item Value Reference Range Interpretation Comments Alpha 2 Glob (test code = Alpha 2 Glob) 1.10 0.45-1.00 [facility]woodZlfsudmADWWURIBOK8092-84-85 13:10:00 Test Item Value Reference Range Interpretation Comments Beta Glob (test code = Beta Glob) 0.93 0.50-1.15 [facility]woodOfjiadqKRXZGNJWUM1854-57-09 13:10:00 Test Item Value Reference Range Interpretation Comments Gamma Glob (test code = Gamma Glob) 1.01 0.71-1.57 [facility]woodQqcpskuBPKKPEQFRZ4382-62-86 13:10:00 Test Item Value Reference Range Interpretation Comments Tot Prot (SPE) (test code = Tot Prot 7.5 6.4-8.4 (SPE)) [facility]woodAzakvycUGXASFHPEH9856-34-65 13:10:00 Test Item Value Reference Range Interpretation [...] and concur with the resident's interpretation. CPT 33288-BJ [facility]woodAupwaljWTYLANFOWY2259-18-50 13:10:00 Test Item Value Reference Range Interpretation Comments [place] Free Light Chains (test code = 110.41 3.30-19.40 [place] Free Light Chains) [facility]evilleWbzupphQCOSIKBKDM9925-18-55 13:10:00 Test Item Value Reference Range Interpretation Comments Lambda Free Light Chains (test code = 40.85 5.70-26.30 Lambda Free Light Chains) [facility]evilleRxsqfmmYNJCKLXQOU8709-02-54 13:10:00 Test Item Value Reference Range Interpretation Comments [place]/Lambda Free Light Chains Ratio 2.70 0.26-1.65 (test code = [place]/Lambda Free Light Chains Ratio) [facility] BeevilleBrdudvhTFHWCRCTIL2608-05-97 13:10:00 Test Item Value Reference Range Interpretation Comments CMV IgG (test code = Reactive *ABN*(03/16/19 CMV IgG) 7:10 AM) [facility]evilleNekdugaMYPHVAUMIB5023-50-20 13:10:00 Test Item Value Reference Range Interpretation Comments EBV VCA IgG (test code = EBV VCA IgG) no gt [facility] BeevilleYkdikwoNWONAACBXH9393-18-19 13:10:00 Test Item Value Reference Range Interpretation Comments HIV Ag/Ab 4th Gen Negative *NA*(03/16/19 (test code = HIV 7:10 AM) Ag/Ab 4th Gen) [facility]evilleIucnabtVMHWSSXLLJ9773-56-25 13:10:00 Test Item Value Reference Range Interpretation Comments Hep A Tot (test code Positive *NA*(03/16/19 = Hep A Tot) 7:10 AM) [facility]evilleGcqlhnmJXDDOOKCXT7792-67-53 13:10:00 Test Item Value Reference Range Interpretation Comments Hep Bs Ab (test code = Hep Bs Ab) no gt [facility] BeevilleEuemlydSDANEZDRKX8300-62-30 13:10:00 Test Item Value Reference Range Interpretation Comments Hep B Core Ab (test Negative *NA*(03/16/19 code = Hep B Core Ab) 7:10 AM) [facility]evilleYswdgvgQLFCQGGWUO6891-71-40 13:10:00 Test Item Value Reference Range Interpretation Comments Hep Bs Ag (test code Negative *NA*(03/16/19 = Hep Bs Ag) 7:10 AM) [facility]evilleNcjosmgPAEICGTQHV9564-49-93 13:10:00 Test Item Value Reference Range Interpretation Comments Hep C Ab (test code = Negative *NA*(03/16/19 Hep C Ab) 7:10 AM) [facility] BeevilleRtrubjwQSEVEHADAK9653-98-77 13:10:00 Test Item Value Reference Range Interpretation Comments HSV 2 IgG (test code = HSV 2 IgG) no gt [facility]woodRtfhljcDYYAMNZUYK0075-62-62 13:10:00 Test Item Value Reference Range Interpretation Comments HSV 1 IgG (test code = HSV 1 IgG) no gt [facility] BeevilleXawqtxlSLOFGPCICO2484-95-52 13:10:00 Test Item Value Reference Range Interpretation Comments T-Spot.TB (test code Negative (03/16/19 7:10 = T-Spot.TB) AM) [facility]evilleHyfikpvRIBTSYKJCC2270-55-00 13:10:00 Test Item Value Reference Range Interpretation Comments Treponemal Ab (test code Non-Reactive = Treponemal Ab) *NA*(03/16/19 7:10 AM) [facility] BeevilleAukdibaVSEOSOXEIO4515-64-82 13:10:00 Test Item Value Reference Range Interpretation Comments Varicella IgG (test code = Varicella no gt IgG) [facility]evilleOjqxeskISKXHFIPRT9419-91-07 13:10:00 Test Item Value Reference Range Interpretation Comments Mumps IgG (test code = Mumps IgG) 5.1 [facility] BeevilleMcfbjjpBRAHFOLMZQ4128-98-57 13:10:00 Test Item Value Reference Range Interpretation Comments Rubella IgG (test code = Rubella IgG) no gt [facility] BeevilleTrwoonjLGEQQCGQWD0701-65-79 13:10:00 Test Item Value Reference Range Interpretation Comments Rubeola IgG (test code = Rubeola IgG) 2.0 [facility] BeevilleLoulappGMPBSGKFWH8220-75-34 13:10:00 Test Item Value Reference Range Interpretation Comments KAREN Ser Pattern A distinct monoclonal (test code = KAREN Ser band is present in the Pattern) IgM izabella with a corresponding faint band in the kappa light chain izabella. The polyclonal gamma globulin background is preserved in all lanes. [facility] BeevilleXtzoufxISEIVVTJNA4311-80-41 13:10:00 Test Item Value Reference Range Interpretation [...] and concur with the resident's interpretation. CPT 81318-GC [facility]woodMfhkhwtVYLWAA6078-27-89 13:10:00 Test Item Value Reference Range Interpretation Comments Trig (test code = Trig) 138 [facility]ItqsjsiDTOPBG7029-00-76 13:10:00 Test Item Value Reference Range Interpretation Comments Chol (test code = Chol) 183 [facility]woodAfjtqgcNCEVVG9335-43-65 13:10:00 Test Item Value Reference Range Interpretation Comments HDL (test code = HDL) 40 [facility] PasoWgtmigaHJEYTV9594-31-31 13:10:00 Test Item Value Reference Range Interpretation Comments CHD Risk (test code = CHD Risk) 4.58 1 4.00-7.30 [facility] PasoTomydryJJALPV7388-09-08 13:10:00 Test Item Value Reference Range Interpretation Comments LDL (Calculated) (test code = LDL 115 (Calculated)) [facility]woodEqrfjzyDXKAYH4586-07-32 13:10:00 Test Item Value Reference Range Interpretation Comments VLDL (test code = VLDL) 28 1 [facility]woodPARASITOLOGY - LZTZVDHW9561-31-45 13:10:00 Test Item Value Reference Range Interpretation Comments Strongyloides Antibodies (test code Negative = Strongyloides Antibodies) [facility]woodPARATHYROID IFTHYDW6968-04-28 13:10:00 Test Item Value Reference Range Interpretation Comments PTH Intact (test code = PTH Intact) 579.6 18.4-80.1 [facility]woodSPECSUM[facility] DIFCCLHXH3015-87-36 13:10:00 Test Item Value Reference Range Interpretation Comments Nicotine Lvl (test code = None Detected Nicotine Lvl) [facility] BNJEIJRDQ2958-72-87 13:10:00 Test Item Value Reference Range Interpretation Comments Cotinine Lvl (test code = None Detected Cotinine Lvl) [facility] FCQFTYKWW3115-53-74 13:10:00 Test Item Value Reference Range Interpretation Comments Hgb A1C (test code = Hgb A1C) 6.1 [facility] RQSRDBZVX0293-61-18 13:10:00 Test Item Value Reference Range Interpretation Comments PSA (test code = PSA) 1.34 See_Comment [Auto mated message] The system which ge nerated this result transmit nicko reference range : <=4.00. The reference r carlos was not used to interpr et this result as adebayo l/abnormal. [facility] PasoannURINE AND PWLQP0874-33-01 13:10:00 Test Item Value Reference Range Interpretation Comments UA WBC (test code = 1 See_Comment [Automa nicko message] The UA WBC) system which ge nerated this result transmit nicko reference range : <=5. The reference range was not used to interpr et this result as adebayo l/abnormal. [facility] AND [id number] 13:10:00 Test Item Value Reference Range Interpretation Comments UA RBC (test code = 1 See_Comment [Automa nicko message] The UA RBC) system which ge nerated this result transmit nicko reference range : <=2. The reference range was not used to interpr et this result as adebayo l/abnormal. [facility] AND [id number] 13:10:00 Test Item Value Reference Range Interpretation Comments UA Color (test code = Yellow *NA*(03/16/19 UA Color) 7:10 AM) [facility] AND [id number] 13:10:00 Test Item Value Reference Range Interpretation Comments UA Turbidity (test code = Clear (03/16/19 7:10 UA Turbidity) AM) [facility] AND [id number] 13:10:00 Test Item Value Reference Range Interpretation Comments UA Spec Grav (test code = UA Spec 1.010 1 Grav) [facility] AND [id number] 13:10:00 Test Item Value Reference Range Interpretation Comments UA pH (test code = UA pH) 6.0 1 5.0-8.0 [facility] AND [id number] 13:10:00 Test Item Value Reference Range Interpretation Comments UA Protein (test code = UA Protein) 100 mg/dL [facility] AND [id number] 13:10:00 Test Item Value Reference Range Interpretation Comments UA Glucose (test code = UA Glucose) 100 mg/dL [facility] AND [id number] 13:10:00 Test Item Value Reference Range Interpretation Comments UA Ketones (test code Negative *NA*(03/16/19 = UA Ketones) 7:10 AM) [facility] AND [id number] 13:10:00 Test Item Value Reference Range Interpretation Comments UA Bili (test code = Negative *NA*(03/16/19 UA Bili) 7:10 AM) [facility] [id number] 13:10:00 Test Item Value Reference Range Interpretation Comments UA Blood (test code = Trace *ABN*(03/16/19 UA Blood) 7:10 AM) [facility] HermannURINE AND [id number] 13:10:00 Test Item Value Reference Range Interpretation Comments UA Urobilinogen (test code = UA 0.2 0.1-1.0 Urobilinogen) [facility] [id number] 13:10:00 Test Item Value Reference Range Interpretation Comments UA Nitrite (test code Negative (03/16/19 7:10 = UA Nitrite) AM) [facility] [id number] 13:10:00 Test Item Value Reference Range Interpretation Comments UA Leuk Est (test Negative (03/16/19 7:10 code = UA Leuk Est) AM) [facility] [place] AND [id number] 13:10:00 Test Item Value Reference Range Interpretation Comments UA Sq Epi (test code = None Seen (03/16/19 7:10 UA Sq Epi) AM) [facility] [id number] 13:10:00 Test Item Value Reference Range Interpretation Comments U Creatinine (test code = U Creatinine) 74.20 [facility] [id number] 13:10:00 Test Item Value Reference Range Interpretation Comments U Alb (test code = U Alb) 892.0 [facility] [id number] 13:10:00 Test Item Value Reference Range Interpretation Comments U Alb/Crea (test code = U Alb/Crea) 1202.2 [facility] [id number] 13:10:00 Test Item Value Reference Range Interpretation Comments U Creatinine (test code = U Creatinine) 74.20 [facility] [place] [id number] 13:10:00 Test Item Value Reference Range Interpretation Comments U Protein (test code = U Protein) 149.5 [facility] [id number] 13:10:00 Test Item Value Reference Range Interpretation Comments U Prot/Creat (test code = U 2.01 1 Prot/Creat) [facility] [id number] 13:10:00 Test Item Value Reference Range Interpretation Comments U Creatinine (test code = U Creatinine) 74.20 [facility]2020-01-15 13:10:00 Test Item Value Reference Range Interpretation Comments U Alb (test code = U Alb) 892.0 [facility]2020-01-15 13:10:00 Test Item Value Reference Range Interpretation Comments U Alb/Crea (test code = U Alb/Crea) 1202.2 [facility] [id number] 13:10:00 Test Item Value Reference Range Interpretation Comments T cruzi (Chagas) Ab (test code = Non Reactive T cruzi (Chagas) Ab) [facility]2020-01-15 13:10:00 Test Item Value Reference Range Interpretation Comments W Nile Ab IgG (test code = W Nile Ab Negative IgG) [facility]2020-01-15 13:10:00 Test Item Value Reference Range Interpretation Comments W Nile Ab IgM (test code = W Nile Ab Negative IgM) [facility]2020-01-15 13:10:00 Test Item Value Reference Range Interpretation Comments Ferritin Lvl (test code = Ferritin Lvl) 237 22-275 [facility]2020-01-15 13:10:00 Test Item Value Reference Range Interpretation Comments Iron (test code = Iron) 46 45-160 [facility]2020-01-15 13:10:00 Test Item Value Reference Range Interpretation Comments TIBC (test code = TIBC) 300 228-428 [facility]2020-01-15 13:10:00 Test Item Value Reference Range Interpretation Comments UIBC (test code = UIBC) 254 110-370 [facility]2020-01-15 13:10:00 Test Item Value Reference Range Interpretation Comments % Satur Fe (test code = % Satur Fe) 15 12-[address] [facility]2020-01-15 13:10:00 Test Item Value Reference Range Interpretation Comments Glucose Lvl (test code = Glucose Lvl) 74 70-[address] [facility]2020-01-15 13:10:00 Test Item Value Reference Range Interpretation Comments BUN (test code = BUN) 43 7-[address] [facility]2020-01-15 13:10:00 Test Item Value Reference Range Interpretation Comments Creatinine Lvl (test code = Creatinine 4.40 0.50-1.40 Lvl) [place] 498820-01-15 13:10:00 Test Item Value Reference Range Interpretation Comments Sodium Lvl (test code = Sodium Lvl) 143 135-145 [place] 498820-01-15 13:10:00 Test Item Value Reference Range Interpretation Comments Potassium Lvl (test code = Potassium 3.9 3.5-5.1 Lvl) [place] 498820-01-15 13:10:00 Test Item Value Reference Range Interpretation Comments Chloride Lvl (test code = Chloride Lvl) 109 95-109 [place] 498820-01-15 13:10:00 Test Item Value Reference Range Interpretation Comments CO2 (test code = CO2) 26 24-32 [place] 498820-01-15 13:10:00 Test Item Value Reference Range Interpretation Comments Calcium Lvl (test code = Calcium Lvl) 8.5 8.5-10.5 [place] 498820-01-15 13:10:00 Test Item Value Reference Range Interpretation Comments Total Protein (test code = Total 7.5 6.4-8.4 Protein) [place] 498820-01-15 13:10:00 Test Item Value Reference Range Interpretation Comments Albumin Lvl (test code = Albumin Lvl) 3.4 3.5-5.[address] [facility]2020-01-15 13:10:00 Test Item Value Reference Range Interpretation Comments ALT (test code = ALT) 16 See_Comment [Auto mated message] The system which ge nerated this result transmit nicko reference range : <=65. The reference range was not used to interpr et this result as adebayo l/abnormal. [facility]woodfrenting [id number] 13:10:00 Test Item Value Reference Range Interpretation Comments AST (test code = AST) 11 See_Comment [Auto mated message] The system which ge nerated this result transmit nicko reference range : <=37. The reference range was not used to interpr et this result as adebayo l/abnormal. [place] 498820-01-15 13:10:00 Test Item Value Reference Range Interpretation Comments Alk Phos (test code = Alk Phos) 68 39-[address] [facility]2020-01-15 13:10:00 Test Item Value Reference Range Interpretation Comments Bili Total (test code = Bili Total) 0.3 0.2-1.[address] [facility]2020-01-15 13:10:00 Test Item Value Reference Range Interpretation Comments AGAP (test code = AGAP) 11.9 10.0-20.[address] [facility]2020-01-15 13:10:00 Test Item Value Reference Range Interpretation Comments B/C Ratio (test code = B/C Ratio) 10 1 6-25 [place] 498820-01-15 13:10:00 Test Item Value Reference Range Interpretation Comments Globulin (test code = Globulin) 4.1 2.7-4.[address] [facility]2020-01-15 13:10:00 Test Item Value Reference Range Interpretation Comments A/G Ratio (test code = A/G Ratio) 0.8 1 0.7-1.6 [place] 498820-01-15 13:10:00 Test Item Value Reference Range Interpretation Comments eGFR (test code = eGFR) [address] [facility]2020-01-15 13:10:00 Test Item Value Reference Range Interpretation Comments Magnesium Lvl (test code = Magnesium 1.2 1.8-2.4 Lvl) [facility]2020-01-15 13:10:00 Test Item Value Reference Range Interpretation Comments Phosphorus (test code = Phosphorus) 3.9 2.5-4.[address] [facility]2020-01-15 13:10:00 Test Item Value Reference Range Interpretation Comments Uric Acid (test code = Uric Acid) 7.1 3.8-8.[address] [facility]2020-01-15 13:10:00 Test Item Value Reference Range Interpretation Comments Vitamin D, 25-OH, Total (test code = 42.0 30.0-100.0 Vitamin D, 25-OH, Total) [facility]2020-01-15 13:10:00 Test Item Value Reference Range Interpretation Comments LDH (test code = LDH) 164 98-[address] [facility]2020-01-15 13:10:00 Test Item Value Reference Range Interpretation Comments Creatinine Lvl (test code = Creatinine 4.39 0.50-1.40 Lvl) [facility]2020-01-15 13:10:00 Test Item Value Reference Range Interpretation Comments eGFR (test code = eGFR) 13 [facility] [id number] 13:10:00 Test Item Value Reference Range Interpretation Comments Phencyclidine Scr (test code = Negative Phencyclidine Scr) [facility] [id number] 13:10:00 Test Item Value Reference Range Interpretation Comments Kaitlin Scr (test code = Kaitlin Scr) Negative [facility] [id number] 13:10:00 Test Item Value Reference Range Interpretation Comments Cannab Scr (test code = Cannab Scr) Negative [facility] [id number] 13:10:00 Test Item Value Reference Range Interpretation Comments Methadone Scr (test code = Methadone Negative Scr) [facility] [id number] 13:10:00 Test Item Value Reference Range Interpretation Comments Cocaine Scr (test code = Cocaine Negative Scr) [facility] [id number] 13:10:00 Test Item Value Reference Range Interpretation Comments Benzodiaz Scr (test code = Benzodiaz Negative Scr) [facility] [id number] 13:10:00 Test Item Value Reference Range Interpretation Comments Amph Scr (test code = Amph Scr) Negative [facility] HKNDLY7871-65-85 13:10:00 Test Item Value Reference Range Interpretation Comments Opiate Scr (test code = Opiate Scr) Positive [facility] [id number] 13:10:00 Test Item Value Reference Range Interpretation Comments 6-Acetylmor Scr (test code = Negative 6-Acetylmor Scr) [facility] [id number] 13:10:00 Test Item Value Reference Range Interpretation Comments Opiate Qnt (test code = Opiate Qnt) Positive [facility]woodHkeroqfZZCHXLVNSR0326-03-75 13:10:00 Test Item Value Reference Range Interpretation Comments PT (test code = PT) 12.8 s 12.0-14.7 [facility]woodUdnlfvcVLCXQBGOFG8811-70-58 13:10:00 Test Item Value Reference Range Interpretation Comments INR (test code = INR) 0.96 1 0.85-1.17 [facility]EotlzzuKSYXFTKKGT8490-25-78 13:10:00 Test Item Value Reference Range Interpretation Comments PTT (test code = PTT) 33.5 s 22.9-35.8 [facility]woodEpockscIXEWZWVDWF7571-69-64 13:10:00 Test Item Value Reference Range Interpretation Comments WBC (test code = WBC) 8.5 3.7-10.4 [facility]GovgjumNLWIRPCIDK3594-07-48 13:10:00 Test Item Value Reference Range Interpretation Comments RBC (test code = RBC) 4.31 4.70-6.10 [facility] HospitalWqpwoxmTMHGBZTDUQ7999-23-23 13:10:00 Test Item Value Reference Range Interpretation Comments Hgb (test code = Hgb) 12.6 14.0-18.0 [facility] HospitalQezfsbyDZDIQKTZQN5451-93-34 13:10:00 Test Item Value Reference Range Interpretation Comments Hct (test code = Hct) 39.5 42.0-54.0 [facility] HospitalPsumdyqBHWSZTQTIY8137-84-25 13:10:00 Test Item Value Reference Range Interpretation Comments MCV (test code = MCV) 91.6 80.0-94.0 [facility] HospitalDdoewabJYXLCPBTIC8476-91-52 13:10:00 Test Item Value Reference Range Interpretation Comments MCH (test code = MCH) 29.3 pg 27.0-31.0 [facility] HospitalEqlrrshDXDAZUPNFO8359-55-56 13:10:00 Test Item Value Reference Range Interpretation Comments MCHC (test code = MCHC) 32.0 32.0-36.0 [facility] HospitalSmbtcbgVXKSFBVUWG7712-49-50 13:10:00 Test Item Value Reference Range Interpretation Comments RDW (test code = RDW) 15.5 11.5-14.5 [facility] HospitalKmmvwxrERXZEMBBTS5432-89-69 13:10:00 Test Item Value Reference Range Interpretation Comments Platelet (test code = Platelet) 215 133-450 [facility] HospitalBhleagvOVZEZKQILU3917-53-92 13:10:00 Test Item Value Reference Range Interpretation Comments MPV (test code = MPV) 9.0 7.4-10.4 [facility] HospitalWwbktuoWCWFNBNTRF2065-81-02 13:10:00 Test Item Value Reference Range Interpretation Comments AT III Func (test code = AT III Func) 118 77-140 [facility] HospitalLlstddiTVNEJELDPB9397-66-67 13:10:00 Test Item Value Reference Range Interpretation Comments F5 Leiden PCR (test Negative (03/16/19 7:10 code = F5 Leiden PCR) AM) [facility] HospitalXmaachaMKQVUHKNQL1325-10-24 13:10:00 Test Item Value Reference Range Interpretation Comments F5 Leiden Intrp (test code = F5 See note Leiden Intrp) [facility] HospitalRmghwzwPMUWTIQCBS3470-60-22 13:10:00 Test Item Value Reference Range Interpretation Comments dRVV Ratio (test code = dRVV Ratio) 1.26 1 [facility] HospitalHnxydkbDIATBVJFBO9183-45-38 13:10:00 Test Item Value Reference Range Interpretation Comments Plt Neut Test (test code = Plt Neut Negative Test) [facility] HospitalLpuveblPGSDJZQPCU7045-47-45 13:10:00 Test Item Value Reference Range Interpretation Comments Hex Phos N (test code Negative (03/16/19 7:10 = Hex Phos N) AM) [place] 352160-01-15 13:10:00 Test Item Value Reference Range Interpretation Comments Lup Interp (test Negative for lupus code = Lup Interp) anticoagulant (prolonged dRVVT, negative hexagonal phospholipid neutralization, and negative Platelet Neutralization procedure). Thrombin Time is normal (15.5 sec) which rules out heparin as interference substance. CPT: 45894 [facility] HospitalPvgarfrYPSRQMADSF6520-41-44 13:10:00 Test Item Value Reference Range Interpretation Comments F2 Mutation PCR (test Negative (03/16/19 7:10 code = F2 Mutation PCR) AM) [facility] HospitalHigjkumZULCAWCFDU7177-76-55 13:10:00 Test Item Value Reference Range Interpretation Comments F2 Mut Interp (test code = F2 Mut See note Interp) [facility] HospitalQzyiptxZSXTUKMCAP9732-07-90 13:10:00 Test Item Value Reference Range Interpretation Comments Protein C Func (test code = Protein C 118 72-147 Func) [facility] HospitalGpgsbnbGJAFEHBZNB0795-50-72 13:10:00 Test Item Value Reference Range Interpretation Comments Protein S Func (test code = Protein S 113 54-137 Func) [place] 352160-01-15 13:10:00 Test Item Value Reference Range Interpretation Comments Segs (test code = Segs) 58.7 45.0-75.0 [facility] HospitalCazgpycXZKUXQAJMI0848-00-01 13:10:00 Test Item Value Reference Range Interpretation Comments Lymphocytes (test code = Lymphocytes) 30.5 20.0-40.0 [facility] HospitalYobmmkrJSMOCXZLCL0509-63-04 13:10:00 Test Item Value Reference Range Interpretation Comments Monocytes (test code = Monocytes) 8.0 2.0-12.0 [place] 352160-01-15 13:10:00 Test Item Value Reference Range Interpretation Comments Eosinophils (test code = 2.2 See_Comment [A utomated message] The Eosinophils) system which ge nerated this result tra nsmitted reference range : <=4.0. The reference r carlos was not used to int erpret this result as normal/abnormal . [facility] HospitalIsfdpiqICDTHIQJJW5135-82-59 13:10:00 Test Item Value Reference Range Interpretation Comments Basophils (test code = 0.6 See_Comment [Aut omated message] The Basophils) system which ge nerated this result tra nsmitted reference range : <=1.0. The reference r carlos was not used to int erpret this result as normal/abnormal . [facility] HospitalGtcfrkoHZMHIFAKNG2654-64-67 13:10:00 Test Item Value Reference Range Interpretation Comments Neutrophils # (test code = Neutrophils 5.0 1.5-8.1 #) [facility] HospitalRimelmoHUXOMXPEOA1303-83-04 13:10:00 Test Item Value Reference Range Interpretation Comments Lymphocytes # (test code = Lymphocytes 2.6 1.0-5.5 #) [facility] HospitalIzbukpeVOMZOSAQHR8302-75-85 13:10:00 Test Item Value Reference Range Interpretation Comments Monocytes # (test code 0.7 See_Comment [Aut omated message] The = Monocytes #) system which generated this result tra nsmitted reference range : <=0.8. The reference r carlos was not used to int erpret this result as normal/abnormal . [facility] HospitalRwwuuoyZSHPIKTFGW5367-11-32 13:10:00 Test Item Value Reference Range Interpretation Comments Eosinophils # (test code 0.2 See_Comment [A utomated message] The = Eosinophils #) system whic h generated this result tra nsmitted reference range : <=0.5. The reference r carlos was not used to int erpret this result as normal/abnormal . [facility]ExviyssWGFVTRRCGF1403-78-76 13:10:00 Test Item Value Reference Range Interpretation Comments Cystatin C (test code = Cystatin C) 3.70 0.62-1.16 [facility]evillePrlhczsRQLTEMBHMP5415-10-42 13:10:00 Test Item Value Reference Range Interpretation Comments Cardiolipin IgA (test code = no gt Cardiolipin IgA) [facility]evilleJfrkkogJXWTDTMVTI0441-99-09 13:10:00 Test Item Value Reference Range Interpretation Comments Cardiolipin IgG (test code = no gt Cardiolipin IgG) [facility]evilleWmyhitiUVIFXFRQQP8957-51-57 13:10:00 Test Item Value Reference Range Interpretation Comments Cardiolipin IgM (test code = 0.8 Cardiolipin IgM) [facility]evilleTrbatqtGTEGFTKCZI1107-69-40 13:10:00 Test Item Value Reference Range Interpretation Comments Homocyst Tot (test code = Homocyst Tot) 16.5 3.7-13.9 [facility]evilleTscckweSPFOKRINOB9910-18-50 13:10:00 Test Item Value Reference Range Interpretation Comments Albumin % (test code = Albumin %) 51.0 55.8-66.1 [facility]evilleIztzknxZGTYFTYHWK5127-08-11 13:10:00 Test Item Value Reference Range Interpretation Comments Alpha 1 % (test code = Alpha 1 %) 8.6 2.8-4.9 [facility] BeevilleRuadeylXMPOEMBFRF9819-15-76 13:10:00 Test Item Value Reference Range Interpretation Comments Alpha 2 % (test code = Alpha 2 %) 14.6 7.0-11.9 [facility]evilleVieojfyYFMERQAJJZ6870-96-89 13:10:00 Test Item Value Reference Range Interpretation Comments Beta % (test code = Beta %) 12.4 7.8-13.7 [facility] BeevilleZuyodozNNKJIAVNDW7861-70-54 13:10:00 Test Item Value Reference Range Interpretation Comments Gamma % (test code = Gamma %) 13.4 11.1-18.7 [facility]evilleMbvkmxmTYSERRGEXM4114-22-09 13:10:00 Test Item Value Reference Range Interpretation Comments Albumin (SPE) (test code = Albumin 3.83 3.57-5.55 (SPE)) [facility]evilleKatktoqANQHHQLBID0192-68-37 13:10:00 Test Item Value Reference Range Interpretation Comments Alpha 1 Glob (test code = Alpha 1 Glob) 0.65 0.18-0.41 [facility]evilleMocsbkePKADIXGGZS9921-35-26 13:10:00 Test Item Value Reference Range Interpretation Comments Alpha 2 Glob (test code = Alpha 2 Glob) 1.10 0.45-1.00 [place] 427540-01-15 13:10:00 Test Item Value Reference Range Interpretation Comments Beta Glob (test code = Beta Glob) 0.93 0.50-1.15 [facility]NwclbgiLEAHDAJLTL6757-42-73 13:10:00 Test Item Value Reference Range Interpretation Comments Gamma Glob (test code = Gamma Glob) 1.01 0.71-1.57 [facility] BeevilleRuzerpiGQJLNTZLTE4650-88-70 13:10:00 Test Item Value Reference Range Interpretation Comments Tot Prot (SPE) (test code = Tot Prot 7.5 6.4-8.4 (SPE)) [facility]evilleXqqkgjtSCVXQJTEFW2200-42-53 13:10:00 Test Item Value Reference Range Interpretation [...] and concur with the resident's interpretation. CPT 21893-MJ [facility]woodYlhphhdFIJFPBFQWK8074-35-61 13:10:00 Test Item Value Reference Range Interpretation Comments [place] Free Light Chains (test code = 110.41 3.30-19.40 [place] Free Light Chains) [facility]evilleFkwlfbrCSXYOZSRFM1239-88-79 13:10:00 Test Item Value Reference Range Interpretation Comments Lambda Free Light Chains (test code = 40.85 5.70-26.30 Lambda Free Light Chains) [facility]evilleGkauomkENDOYQUPOP0123-22-28 13:10:00 Test Item Value Reference Range Interpretation Comments [place]/Lambda Free Light Chains Ratio 2.70 0.26-1.65 (test code = [place]/Lambda Free Light Chains Ratio) [facility]evilleQjfmydwTBMBROEUTZ5584-71-57 13:10:00 Test Item Value Reference Range Interpretation Comments CMV IgG (test code = Reactive *ABN*(03/16/19 CMV IgG) 7:10 AM) [facility]evilleOowrvkjQKJYLZIYFH3799-93-51 13:10:00 Test Item Value Reference Range Interpretation Comments EBV VCA IgG (test code = EBV VCA IgG) no gt [facility]evilleVjzgxgzHZAYKCJVNX9407-88-63 13:10:00 Test Item Value Reference Range Interpretation Comments HIV Ag/Ab 4th Gen Negative *NA*(03/16/19 (test code = HIV 7:10 AM) Ag/Ab 4th Gen) [facility] BeevilleNcnrupfWYYBJEDJAH2601-40-79 13:10:00 Test Item Value Reference Range Interpretation Comments Hep A Tot (test code Positive *NA*(03/16/19 = Hep A Tot) 7:10 AM) [facility]evilleBezriseONQCIXIMCD5552-73-25 13:10:00 Test Item Value Reference Range Interpretation Comments Hep Bs Ab (test code = Hep Bs Ab) no gt [facility]woodQcqczmkFNSDLGJDVN1435-88-30 13:10:00 Test Item Value Reference Range Interpretation Comments Hep B Core Ab (test Negative *NA*(03/16/19 code = Hep B Core Ab) 7:10 AM) [facility]evilleGtnvumuIFEJNQRHKA5610-25-61 13:10:00 Test Item Value Reference Range Interpretation Comments Hep Bs Ag (test code Negative *NA*(03/16/19 = Hep Bs Ag) 7:10 AM) [facility]evilleGktxxvfSHULZBELQK6838-63-03 13:10:00 Test Item Value Reference Range Interpretation Comments Hep C Ab (test code = Negative *NA*(03/16/19 Hep C Ab) 7:10 AM) [facility]evilleOqxqegaIJXSDBBIVE5861-82-59 13:10:00 Test Item Value Reference Range Interpretation Comments HSV 2 IgG (test code = HSV 2 IgG) no gt [facility]woodXsexegcFEPYQVAFLR9952-41-46 13:10:00 Test Item Value Reference Range Interpretation Comments HSV 1 IgG (test code = HSV 1 IgG) no gt [facility]woodOcxsdcmXBNFAYVANH8939-00-60 13:10:00 Test Item Value Reference Range Interpretation Comments T-Spot.TB (test code Negative (03/16/19 7:10 = T-Spot.TB) AM) [facility]evilleGtetljxQZMKMLJDMV9700-36-47 13:10:00 Test Item Value Reference Range Interpretation Comments Treponemal Ab (test code Non-Reactive = Treponemal Ab) *NA*(03/16/19 7:10 AM) [facility]evilleQmvynyjOQIKGLFJFM6829-12-30 13:10:00 Test Item Value Reference Range Interpretation Comments Varicella IgG (test code = Varicella no gt IgG) [facility] BeevilleCiftesbKHAMERWDFB7030-36-10 13:10:00 Test Item Value Reference Range Interpretation Comments Mumps IgG (test code = Mumps IgG) 5.1 [facility] BeevilleTzmmqlpPNCTQWKQND4445-03-63 13:10:00 Test Item Value Reference Range Interpretation Comments Rubella IgG (test code = Rubella IgG) no gt [facility] AzbltfpVUBGBBMPOS6083-88-80 13:10:00 Test Item Value Reference Range Interpretation Comments Rubeola IgG (test code = Rubeola IgG) 2.0 [facility] PasoCzoijstMVMVYGJPFX0203-89-31 13:10:00 Test Item Value Reference Range Interpretation Comments KAREN Ser Pattern A distinct monoclonal (test code = KAREN Ser band is present in the Pattern) IgM izabella with a corresponding faint band in the kappa light chain izabella. The polyclonal gamma globulin background is preserved in all lanes. [facility] PasoTtutzaxPJOZOPKIDM1701-78-44 13:10:00 Test Item Value Reference Range Interpretation [...] and concur with the resident's interpretation. CPT 80073-HX [facility] PasoUnlfnqvLXFHMG9400-01-30 13:10:00 Test Item Value Reference Range Interpretation Comments Trig (test code = Trig) 138 [facility] PasoClufztpYTINIT5766-35-14 13:10:00 Test Item Value Reference Range Interpretation Comments Chol (test code = Chol) 183 [facility] PasoTffqaafCUOMVE2484-76-14 13:10:00 Test Item Value Reference Range Interpretation Comments HDL (test code = HDL) 40 [facility] PasoCkvfhlwNKNHGW9377-99-95 13:10:00 Test Item Value Reference Range Interpretation Comments CHD Risk (test code = CHD Risk) 4.58 1 4.00-7.30 [facility] PasoDjqazlgGRPTMS1173-66-61 13:10:00 Test Item Value Reference Range Interpretation Comments LDL (Calculated) (test code = LDL 115 (Calculated)) [facility] PasoNlbfdorCDSUVW8284-29-43 13:10:00 Test Item Value Reference Range Interpretation Comments VLDL (test code = VLDL) 28 1 [facility] PasoannPARASITOLOGY - TVPWQYWW1030-30-11 13:10:00 Test Item Value Reference Range Interpretation Comments Strongyloides Antibodies (test code Negative = Strongyloides Antibodies) [facility]woodPARATHYROID UDOFXWN9738-39-24 13:10:00 Test Item Value Reference Range Interpretation Comments PTH Intact (test code = PTH Intact) 579.6 18.4-80.1 [facility] VWTSCQWCS8713-12-38 13:10:00 Test Item Value Reference Range Interpretation Comments Nicotine Lvl (test code = None Detected Nicotine Lvl) [facility] FWQXSNUKC7437-24-71 13:10:00 Test Item Value Reference Range Interpretation Comments Cotinine Lvl (test code = None Detected Cotinine Lvl) [facility] MQXOWARZP4963-94-60 13:10:00 Test Item Value Reference Range Interpretation Comments Hgb A1C (test code = Hgb A1C) 6.1 [facility]SPE[facility] WWFFXHFFH1143-88-98 13:10:00 Test Item Value Reference Range Interpretation Comments PSA (test code = PSA) 1.34 See_Comment [Auto mated message] The system which ge nerated this result transmit nicko reference range : <=4.00. The reference r carlos was not used to interpr et this result as adebayo l/abnormal. [facility] QELTN0313-07-36 13:10:00 Test Item Value Reference Range Interpretation Comments UA WBC (test code = 1 See_Comment [Automa nicko message] The UA WBC) system which ge nerated this result transmit nicko reference range : <=5. The reference range was not used to interpr et this result as adebayo l/abnormal. [facility] EBGKK5670-48-52 13:10:00 Test Item Value Reference Range Interpretation Comments UA RBC (test code = 1 See_Comment [Automa nicko message] The UA RBC) system which ge nerated this result transmit nicko reference range : <=2. The reference range was not used to interpr et this result as adebayo l/abnormal. [facility] [id number] 13:10:00 Test Item Value Reference Range Interpretation Comments UA Color (test code = Yellow *NA*(03/16/19 UA Color) 7:10 AM) [facility] [id number] 13:10:00 Test Item Value Reference Range Interpretation Comments UA Turbidity (test code = Clear (03/16/19 7:10 UA Turbidity) AM) [facility] [id number] 13:10:00 Test Item Value Reference Range Interpretation Comments UA Spec Grav (test code = UA Spec 1.010 1 Grav) [facility] AND [id number] 13:10:00 Test Item Value Reference Range Interpretation Comments UA pH (test code = UA pH) 6.0 1 5.0-8.0 [facility] AND [id number] 13:10:00 Test Item Value Reference Range Interpretation Comments UA Protein (test code = UA Protein) 100 mg/dL [facility] AND [id number] 13:10:00 Test Item Value Reference Range Interpretation Comments UA Glucose (test code = UA Glucose) 100 mg/dL [facility] AND [id number] 13:10:00 Test Item Value Reference Range Interpretation Comments UA Ketones (test code Negative *NA*(03/16/19 = UA Ketones) 7:10 AM) [facility] AND [id number] 13:10:00 Test Item Value Reference Range Interpretation Comments UA Bili (test code = Negative *NA*(03/16/19 UA Bili) 7:10 AM) [facility] AND [id number] 13:10:00 Test Item Value Reference Range Interpretation Comments UA Blood (test code = Trace *ABN*(03/16/19 UA Blood) 7:10 AM) [facility] AND [id number] 13:10:00 Test Item Value Reference Range Interpretation Comments UA Urobilinogen (test code = UA 0.2 0.1-1.0 Urobilinogen) [facility] AND [id number] 13:10:00 Test Item Value Reference Range Interpretation Comments UA Nitrite (test code Negative (03/16/19 7:10 = UA Nitrite) AM) [facility] AND [id number] 13:10:00 Test Item Value Reference Range Interpretation Comments UA Leuk Est (test Negative (03/16/19 7:10 code = UA Leuk Est) AM) [facility] AND [id number] 13:10:00 Test Item Value Reference Range Interpretation Comments UA Sq Epi (test code = None Seen (03/16/19 7:10 UA Sq Epi) AM) [facility] [id number] 13:10:00 Test Item Value Reference Range Interpretation Comments U Creatinine (test code = U Creatinine) 74.20 [facility] KHBD2966-06-03 13:10:00 Test Item Value Reference Range Interpretation Comments U Alb (test code = U Alb) 892.0 [facility]2020-01-15 13:10:00 Test Item Value Reference Range Interpretation Comments U Alb/Crea (test code = U Alb/Crea) 1202.2 [facility]2020-01-15 13:10:00 Test Item Value Reference Range Interpretation Comments U Creatinine (test code = U Creatinine) 74.20 [facility]2020-01-15 13:10:00 Test Item Value Reference Range Interpretation Comments U Protein (test code = U Protein) 149.5 [facility]2020-01-15 13:10:00 Test Item Value Reference Range Interpretation Comments U Prot/Creat (test code = U 2.01 1 Prot/Creat) [facility]2020-01-15 13:10:00 Test Item Value Reference Range Interpretation Comments U Creatinine (test code = U Creatinine) 74.20 [facility]2020-01-15 13:10:00 Test Item Value Reference Range Interpretation Comments U Alb (test code = U Alb) 892.0 [facility]2020-01-15 13:10:00 Test Item Value Reference Range Interpretation Comments U Alb/Crea (test code = U Alb/Crea) 1202.2 [facility] EAVMEPNZ4733-70-15 13:10:00 Test Item Value Reference Range Interpretation Comments T cruzi (Chag[place]) Ab (test code = Non Reactive T cruzi ([place]agas) Ab) [facility] UARFITGD1700-64-12 13:10:00 Test Item Value Reference Range Interpretation Comments W Nile Ab IgG (test code = W Nile Ab Negative IgG) [facility] EQZHRUTS0390-60-69 13:10:00 Test Item Value Reference Range Interpretation Comments W Nile Ab IgM (test code = W Nile Ab Negative IgM) [facility]evilleBytbppkZADAUHAJWT1578-49-78 16:49:00 Test Item Value Reference Range Interpretation Comments 24Hr UPE (test code = 24Hr UPE) 1444 [facility]woodFevhtpvITMHDIDOXJ5462-80-56 16:49:00 Test Item Value Reference Range Interpretation [...] and concur with the resident's interpretation. CPT: 73882-BZ [facility] PasoXltlihmECBGKHWROA0915-95-26 16:49:00 Test Item Value Reference Range Interpretation Comments 24 UPE Tot Vol (test code = 24 UPE Tot 2725 Vol) [facility]woodJpnbxxrORZITDDFLN1510-62-99 16:49:00 Test Item Value Reference Range Interpretation Comments 24 UPE Tot Prot (test code = 24 UPE Tot 53 Prot) [facility]evilleDpamrbuGXICVNPQOG7766-92-15 16:49:00 Test Item Value Reference Range Interpretation Comments 24Hr UPE (test code = 24Hr UPE) 1444 [facility]YixqxjrMFOPRWAZUT5181-37-59 16:49:00 Test Item Value Reference Range Interpretation [...] and concur with the resident's interpretation. CPT: 20785-NC [facility]BdkqihfYUNHMIOLKZ4185-84-08 16:49:00 Test Item Value Reference Range Interpretation Comments 24 UPE Tot Vol (test code = 24 UPE Tot 2725 Vol) [facility]HbjgzzsHLHZOOYDOI1771-48-14 16:49:00 Test Item Value Reference Range Interpretation Comments 24 UPE Tot Prot (test code = 24 UPE Tot 53 Prot) [facility]evilleEgbgehsDCWHPRJBZT1281-13-36 16:49:00 Test Item Value Reference Range Interpretation Comments 24Hr UPE (test code = 24Hr UPE) 1444 [facility]woodUlxguxaDVHAQILIIX7265-47-08 16:49:00 Test Item Value Reference Range Interpretation [...] and concur with the resident's interpretation. CPT: 34116-TY [facility]woodLoonbkrPZTOWJIWJH6121-29-51 16:49:00 Test Item Value Reference Range Interpretation Comments 24 UPE Tot Vol (test code = 24 UPE Tot 2725 Vol) [facility]woodYkasnzjTSLCPJPMWX0458-94-47 16:49:00 Test Item Value Reference Range Interpretation Comments 24 UPE Tot Prot (test code = 24 UPE Tot 53 Prot) [facility]2019-04-24 17:46:00 Test Item Value Reference Range Interpretation Comments LDH (test code = LDH) 150 98-[address] [facility]2019-04-24 17:46:00 Test Item Value Reference Range Interpretation Comments W-2-Vsjhbynkk (test code = 9.6 1.0-2.3 H-3-Jxhtooivg) [facility]RisumhpVLTDGUQHMH3161-50-57 17:46:00 Test Item Value Reference Range Interpretation Comments MCHC (test code = MCHC) 32.9 32.0-36.0 [facility] HospitalRolqkegBAZSNFHPVS2684-63-88 17:46:00 Test Item Value Reference Range Interpretation Comments Platelet (test code = Platelet) 250 133-450 [facility] HospitalSkajyspYOPAGIKZUW0976-48-41 17:46:00 Test Item Value Reference Range Interpretation Comments RDW (test code = RDW) 16.3 11.5-14.5 [facility] HospitalWyyxwvcWPDPZOVMNH4213-00-88 17:46:00 Test Item Value Reference Range Interpretation Comments MPV (test code = MPV) 9.1 7.4-10.4 [facility] HospitalRmppdfxRSJJPYFPGO5821-54-49 17:46:00 Test Item Value Reference Range Interpretation Comments Hgb (test code = Hgb) 13.2 14.0-18.0 [facility] HospitalCoqeyujHNIXWLWPVH4295-45-17 17:46:00 Test Item Value Reference Range Interpretation Comments Hct (test code = Hct) 40.2 42.0-54.0 [facility] HospitalGktdruiIWJYIHLRPQ5787-35-48 17:46:00 Test Item Value Reference Range Interpretation Comments MCV (test code = MCV) 87.8 80.0-94.0 [facility] HospitalOjqixjjMKRUGXMXZL3753-03-96 17:46:00 Test Item Value Reference Range Interpretation Comments MCH (test code = MCH) 28.9 pg 27.0-31.0 [facility] HospitalJrbjwkxNSPDKVDEDG8022-02-36 17:46:00 Test Item Value Reference Range Interpretation Comments WBC (test code = WBC) 9.9 3.7-10.4 [facility] HospitalInzbzxqMRJSXIIHNM5358-83-14 17:46:00 Test Item Value Reference Range Interpretation Comments RBC (test code = RBC) 4.58 4.70-6.10 [facility] HospitalRmsppmnYMHOEUBAAT0450-62-25 17:46:00 Test Item Value Reference Range Interpretation Comments Eosinophils # (test code 0.2 See_Comment [A utomated message] The = Eosinophils #) system whic h generated this result tra nsmitted reference range : <=0.5. The reference r carlos was not used to int erpret this result as normal/abnormal . [facility] HospitalFwooxjdFAKLEMDVBP6318-83-34 17:46:00 Test Item Value Reference Range Interpretation Comments Basophils # (test code 0.1 See_Comment [Aut omated message] The = Basophils #) system which generated this result tra nsmitted reference range : <=0.2. The reference r carlos was not used to int erpret this result as normal/abnormal . [facility] HospitalMxgjsdhXTSXUCXVAF9054-43-37 17:46:00 Test Item Value Reference Range Interpretation Comments Basophils (test code = 0.7 See_Comment [Aut omated message] The Basophils) system which ge nerated this result tra nsmitted reference range : <=1.0. The reference r carlos was not used to int erpret this result as normal/abnormal . [facility] HospitalFgzopdfOUWOKHTKXP3667-74-03 17:46:00 Test Item Value Reference Range Interpretation Comments Neutrophils # (test code = Neutrophils 6.6 1.5-8.1 #) [facility] HospitalYmcbwpiELEAXMHXOE6666-17-32 17:46:00 Test Item Value Reference Range Interpretation Comments Lymphocytes # (test code = Lymphocytes 2.4 1.0-5.5 #) [facility] HospitalNfzvujzTSRMTTLWFY2935-01-39 17:46:00 Test Item Value Reference Range Interpretation Comments Monocytes # (test code 0.6 See_Comment [Aut omated message] The = Monocytes #) system which generated this result tra nsmitted reference range : <=0.8. The reference r carlos was not used to int erpret this result as normal/abnormal . [facility] HospitalAefgmnlKWLQWLVUJS1199-52-65 17:46:00 Test Item Value Reference Range Interpretation Comments Segs (test code = Segs) 66.7 45.0-75.0 [facility] HospitalSnjpzoqVBTWLSWVDL0144-86-98 17:46:00 Test Item Value Reference Range Interpretation Comments Monocytes (test code = Monocytes) 6.3 2.0-12.0 [facility] HospitalUbokghaKIXXMWWGOI9339-78-51 17:46:00 Test Item Value Reference Range Interpretation Comments Lymphocytes (test code = Lymphocytes) 24.3 20.0-40.0 [facility] HospitalXkzttjxNPSSFROBIR1051-23-39 17:46:00 Test Item Value Reference Range Interpretation Comments Eosinophils (test code = 2.0 See_Comment [A utomated message] The Eosinophils) system which ge nerated this result tra nsmitted reference range : <=4.0. The reference r carlos was not used to int erpret this result as normal/abnormal . [facility]evilleTcptxtzRQUAJBSKNC2260-53-17 17:46:00 Test Item Value Reference Range Interpretation Comments [place]/Lambda Free Light Chains Ratio 2.17 0.26-1.65 (test code = [place]/Lambda Free Light Chains Ratio) [facility]WcrywqhZGCQNQNKWV8325-36-07 17:46:00 Test Item Value Reference Range Interpretation Comments [place] Free [place] (test code = 92.69 3.30-19.40 [place] [employer] [place]ains) [facility]woodUtverguJCZMTMVDYH0614-33-07 17:46:00 Test Item Value Reference Range Interpretation Comments Lambda Free Light Chains (test code = 42.69 5.70-26.30 Lambda Free Light Chains) [facility] SAKEX3654-47-22 17:46:00 Test Item Value Reference Range Interpretation Comments LDH (test code = LDH) 150 98-192 [facility] HHOMV7258-26-75 17:46:00 Test Item Value Reference Range Interpretation Comments R-7-Tcpqqptfk (test code = 9.6 1.0-2.3 X-6-Itbbqlqdh) [facility] HospitalTydqxrdSGAWAQHZBT6868-20-91 17:46:00 Test Item Value Reference Range Interpretation Comments MCHC (test code = MCHC) 32.9 32.0-36.0 [facility] HospitalLrpxfusIDNNGYAQYA2081-11-70 17:46:00 Test Item Value Reference Range Interpretation Comments Platelet (test code = Platelet) 250 133-450 [facility] HospitalUnnwvpiVTPHICGNQC2886-33-30 17:46:00 Test Item Value Reference Range Interpretation Comments RDW (test code = RDW) 16.3 11.5-14.5 [facility] HospitalBebopadMZDVMVINSS2727-21-55 17:46:00 Test Item Value Reference Range Interpretation Comments MPV (test code = MPV) 9.1 7.4-10.4 [facility] HospitalHfwbwlsNTWLMLALAG5146-75-44 17:46:00 Test Item Value Reference Range Interpretation Comments Hgb (test code = Hgb) 13.2 14.0-18.0 [facility] HospitalAsgndcwVKRGZLGJCV6936-33-24 17:46:00 Test Item Value Reference Range Interpretation Comments Hct (test code = Hct) 40.2 42.0-54.0 [facility] HospitalPmspjseNRWBGXIOMS6010-34-90 17:46:00 Test Item Value Reference Range Interpretation Comments MCV (test code = MCV) 87.8 80.0-94.0 [facility] HospitalLvyradsPVGIZXNEHR6481-73-71 17:46:00 Test Item Value Reference Range Interpretation Comments MCH (test code = MCH) 28.9 pg 27.0-31.0 [facility] HospitalIndoefdQDNOBUOSNT3673-51-50 17:46:00 Test Item Value Reference Range Interpretation Comments WBC (test code = WBC) 9.9 3.7-10.4 [facility] HospitalHqhgccrWRDKCQSNHT4433-00-98 17:46:00 Test Item Value Reference Range Interpretation Comments RBC (test code = RBC) 4.58 4.70-6.10 [facility] HospitalLzwiubfKBDIYZUNPK3144-77-74 17:46:00 Test Item Value Reference Range Interpretation Comments Eosinophils # (test code 0.2 See_Comment [A utomated message] The = Eosinophils #) system whic h generated this result tra nsmitted reference range : <=0.5. The reference r carlos was not used to int erpret this result as normal/abnormal . [facility] HospitalKsmsaviILMZESBNQS6002-65-19 17:46:00 Test Item Value Reference Range Interpretation Comments Basophils # (test code 0.1 See_Comment [Aut omated message] The = Basophils #) system which generated this result tra nsmitted reference range : <=0.2. The reference r carlos was not used to int erpret this result as normal/abnormal . [facility] HospitalIbhldvnBTHNKBTMPD7520-08-46 17:46:00 Test Item Value Reference Range Interpretation Comments Basophils (test code = 0.7 See_Comment [Aut omated message] The Basophils) system which ge nerated this result tra nsmitted reference range : <=1.0. The reference r carlos was not used to int erpret this result as normal/abnormal . [facility] HospitalHdjmzirAGEKMLCESK4927-87-39 17:46:00 Test Item Value Reference Range Interpretation Comments Neutrophils # (test code = Neutrophils 6.6 1.5-8.1 #) [facility] HospitalOkoouawZAWBBSRSGO0391-94-63 17:46:00 Test Item Value Reference Range Interpretation Comments Lymphocytes # (test code = Lymphocytes 2.4 1.0-5.5 #) [facility] HospitalSwcowwxCTGPTTQAHM1673-44-65 17:46:00 Test Item Value Reference Range Interpretation Comments Monocytes # (test code 0.6 See_Comment [Aut omated message] The = Monocytes #) system which generated this result tra nsmitted reference range : <=0.8. The reference r carlos was not used to int erpret this result as normal/abnormal . [facility] HospitalQmzwxzdRDFCAEDYZI7902-32-65 17:46:00 Test Item Value Reference Range Interpretation Comments Segs (test code = Segs) 66.7 45.0-75.0 [facility] HospitalEgvlhdmOZNYIHKOLE8007-35-83 17:46:00 Test Item Value Reference Range Interpretation Comments Monocytes (test code = Monocytes) 6.3 2.0-12.0 [facility] HospitalYdiiasaRBTOTZMQHV6724-90-20 17:46:00 Test Item Value Reference Range Interpretation Comments Lymphocytes (test code = Lymphocytes) 24.3 20.0-40.0 [place] 769429-04-24 17:46:00 Test Item Value Reference Range Interpretation Comments Eosinophils (test code = 2.0 See_Comment [A utomated message] The Eosinophils) system which ge nerated this result tra nsmitted reference range : <=4.0. The reference r carlos was not used to int erpret this result as normal/abnormal . [facility]XzgrdkqDJWBSXTVFL5902-13-96 17:46:00 Test Item Value Reference Range Interpretation Comments [place]/Lambda Free Light Chains Ratio 2.17 0.26-1.65 (test code = [place]/Lambda Free Light Chains Ratio) [facility]evilleIthuekzDPADTGLFET9073-89-80 17:46:00 Test Item Value Reference Range Interpretation Comments [place] [employer] [place] (test code = 92.69 3.30-19.40 [place] [employer] [place]) [facility]woodKuiaopmPZJEBHTOFX7876-69-07 17:46:00 Test Item Value Reference Range Interpretation Comments Lambda Free Light Chains (test code = 42.69 5.70-26.30 Lambda Free Light Chains) [facility]2019-04-24 17:46:00 Test Item Value Reference Range Interpretation Comments LDH (test code = LDH) 150 98-[address] [facility]2019-04-24 17:46:00 Test Item Value Reference Range Interpretation Comments A-3-Ktmlcfajx (test code = 9.6 1.0-2.3 P-9-Sfmjaoeap) [facility] HospitalIqgafboMHTIMTLHQE6417-37-23 17:46:00 Test Item Value Reference Range Interpretation Comments MCHC (test code = MCHC) 32.9 32.0-36.0 [facility] HospitalZlyqshiNKXXSKQRRK6319-88-29 17:46:00 Test Item Value Reference Range Interpretation Comments Platelet (test code = Platelet) 250 133-450 [facility] HospitalAplhpqdLREQOIYYUD9344-15-46 17:46:00 Test Item Value Reference Range Interpretation Comments RDW (test code = RDW) 16.3 11.5-14.5 [facility] HospitalGymynsfWPFIAXXLNL1471-65-68 17:46:00 Test Item Value Reference Range Interpretation Comments MPV (test code = MPV) 9.1 7.4-10.4 [facility] HospitalEujzxyxZRBQANTEQK7712-70-43 17:46:00 Test Item Value Reference Range Interpretation Comments Hgb (test code = Hgb) 13.2 14.0-18.0 [facility] HospitalIzkssufMSOKCIIYQB9576-05-21 17:46:00 Test Item Value Reference Range Interpretation Comments Hct (test code = Hct) 40.2 42.0-54.0 [facility] HospitalAgrcqgcIBHVDDNGXZ7738-10-16 17:46:00 Test Item Value Reference Range Interpretation Comments MCV (test code = MCV) 87.8 80.0-94.0 [facility] HospitalSrdbwfuQLBNZSIEQV3880-71-62 17:46:00 Test Item Value Reference Range Interpretation Comments MCH (test code = MCH) 28.9 pg 27.0-31.0 [facility] HospitalDvhvyyoDTHLIELRZW9265-94-64 17:46:00 Test Item Value Reference Range Interpretation Comments WBC (test code = WBC) 9.9 3.7-10.4 [facility] HospitalHommobpGRXHWKKXOC6998-07-17 17:46:00 Test Item Value Reference Range Interpretation Comments RBC (test code = RBC) 4.58 4.70-6.10 [facility] HospitalVuisiuoKPAAZAVSET8946-72-23 17:46:00 Test Item Value Reference Range Interpretation Comments Eosinophils # (test code 0.2 See_Comment [A utomated message] The = Eosinophils #) system whic h generated this result tra nsmitted reference range : <=0.5. The reference r carlos was not used to int erpret this result as normal/abnormal . [facility] HospitalKweuftsVEZKTTSSGQ9897-58-41 17:46:00 Test Item Value Reference Range Interpretation Comments Basophils # (test code 0.1 See_Comment [Aut omated message] The = Basophils #) system which generated this result tra nsmitted reference range : <=0.2. The reference r carlos was not used to int erpret this result as normal/abnormal . [facility] HospitalOplnfckBRLWPIEIPG8087-50-61 17:46:00 Test Item Value Reference Range Interpretation Comments Basophils (test code = 0.7 See_Comment [Aut omated message] The Basophils) system which ge nerated this result tra nsmitted reference range : <=1.0. The reference r carlos was not used to int erpret this result as normal/abnormal . [facility] HospitalWjfslzwTQBSYTVOLU4099-11-02 17:46:00 Test Item Value Reference Range Interpretation Comments Neutrophils # (test code = Neutrophils 6.6 1.5-8.1 #) [facility] HospitalPynrievJMKJUNEZWR2274-88-94 17:46:00 Test Item Value Reference Range Interpretation Comments Lymphocytes # (test code = Lymphocytes 2.4 1.0-5.5 #) [facility] HospitalXfegizaBMYLMULIUW0818-79-99 17:46:00 Test Item Value Reference Range Interpretation Comments Monocytes # (test code 0.6 See_Comment [Aut omated message] The = Monocytes #) system which generated this result tra nsmitted reference range : <=0.8. The reference r carlos was not used to int erpret this result as normal/abnormal . [facility] HospitalIdqorquCENTHYIFXO3720-01-30 17:46:00 Test Item Value Reference Range Interpretation Comments Segs (test code = Segs) 66.7 45.0-75.0 [facility] HospitalJusnnfrBJLOIXPEBX4390-69-39 17:46:00 Test Item Value Reference Range Interpretation Comments Monocytes (test code = Monocytes) 6.3 2.0-12.0 [facility] HospitalYnesyvmXUICXHVHLE7411-94-27 17:46:00 Test Item Value Reference Range Interpretation Comments Lymphocytes (test code = Lymphocytes) 24.3 20.0-40.0 [facility] HospitalPqcvxbqRILCQVSCBB7226-06-35 17:46:00 Test Item Value Reference Range Interpretation Comments Eosinophils (test code = 2.0 See_Comment [A utomated message] The Eosinophils) system which ge nerated this result tra nsmitted reference range : <=4.0. The reference r carlos was not used to int erpret this result as normal/abnormal . [facility]evilleCgetnvyDDIJPIPRRB6379-27-34 17:46:00 Test Item Value Reference Range Interpretation Comments [place]/Lambda Free Light Chains Ratio 2.17 0.26-1.65 (test code = [place]/Lambda Free Light Chains Ratio) [facility]evilleKjitcmvWMYDLJQRRC6765-72-18 17:46:00 Test Item Value Reference Range Interpretation Comments [place] Free [place] Chains (test code = 92.69 3.30-19.40 [place] [employer] [place]ains) [facility]woodXbhorjmMMPGTFHACB1799-32-37 17:46:00 Test Item Value Reference Range Interpretation Comments Lambda Free Light Chains (test code = 42.69 5.70-26.30 Lambda Free Light Chains) [facility]evilleYegaroeIYMABMHMUF1361-86-45 17:44:11 Test Item Value Reference Range Interpretation [...] results and concur with the resident's interpretation. [facility] 23938-CL [facility] PasoTvrofokYTCXBTBUPB7676-48-73 17:44:11 Test Item Value Reference Range Interpretation Comments U KAREN Pattern Diffusely staining (test code = U KAREN immunoreactivity is present Pattern) mainly in IgG, IgA, kappa and lambda lanes. No monoclonal bands are seen. [facility] PasoWjecwaiCRDNYRFWHL6859-43-23 17:44:11 Test Item Value Reference Range Interpretation [...] results and concur with the resident's interpretation. [facility] 38231-IV [facility] PasoNnjkdsxGPDKUNAJJP2230-66-27 17:44:11 Test Item Value Reference Range Interpretation Comments U KAREN Pattern Diffusely staining (test code = U KAREN immunoreactivity is present Pattern) mainly in IgG, IgA, kappa and lambda lanes. No monoclonal bands are seen. [facility]woodNsmyujdNRMGAUJBQR9296-13-70 17:44:11 Test Item Value Reference Range Interpretation [...] results and concur with the resident's interpretation. [facility] 59664-SN [facility] PasoXwfaiajLUYNCEPZQM8187-53-77 17:44:11 Test Item Value Reference Range Interpretation Comments U KAREN Pattern Diffusely staining (test code = U KAREN immunoreactivity is present Pattern) mainly in IgG, IgA, kappa and lambda lanes. No monoclonal bands are seen. [facility] MNIILXC0353-19-33 20:36:00 Test Item Value Reference Range Interpretation Comments Test Name (test code = HLA TYPING RESULTS Test Name) [facility] ZMZJJJM4546-95-89 20:36:00 Test Item Value Reference Range Interpretation Comments Test Name (test code = HLA TYPING RESULTS Test Name) [facility] [id number] 20:36:00 Test Item Value Reference Range Interpretation Comments Test Name (test code = HLA TYPING RESULTS Test Name) [facility] PLPVHWV0041-59-48 15:40:00 Test Item Value Reference Range Interpretation Comments ABO/RH Confirm (test code = ABO/RH O POS Confirm) [facility] HKFYKQR2693-38-47 15:40:00 Test Item Value Reference Range Interpretation Comments ABO/RH Confirm (test code = ABO/RH O POS Confirm) [facility] [id number] 15:40:00 Test Item Value Reference Range Interpretation Comments ABO/RH Confirm (test code = ABO/RH O POS Confirm) [facility] [id number] 14:50:00 Test Item Value Reference Range Interpretation Comments Ferritin Lvl (test code = Ferritin Lvl) 213 22-[address] [facility] HEIRO9335-06-19 14:50:00 Test Item Value Reference Range Interpretation Comments UIBC (test code = UIBC) 261 110-[address] [facility] JSISU4957-03-69 14:50:00 Test Item Value Reference Range Interpretation Comments % Satur Fe (test code = % Satur Fe) 15 12-[address] [facility] [id number] 14:50:00 Test Item Value Reference Range Interpretation Comments Iron (test code = Iron) 46 45-[address] [facility] [id number] 14:50:00 Test Item Value Reference Range Interpretation Comments TIBC (test code = TIBC) 307 228-428 [facility] TQTQXNG6256-04-78 14:50:00 Test Item Value Reference Range Interpretation Comments OP ABORh Int (test code = OP ABORh Int) O POS [facility] [id number] 14:50:00 Test Item Value Reference Range Interpretation Comments Vitamin D, 25-OH, Total (test code = 36.8 30.0-100.0 Vitamin D, 25-OH, Total) [facility]2019-02-05 14:50:00 Test Item Value Reference Range Interpretation Comments Uric Acid (test code = Uric Acid) 7.3 3.8-8.0 [facility] [id number] 14:50:00 Test Item Value Reference Range Interpretation Comments Phosphorus (test code = Phosphorus) 3.4 2.5-4.[address] [facility]2019-02-05 14:50:00 Test Item Value Reference Range Interpretation Comments Magnesium Lvl (test code = Magnesium 2.0 1.8-2.4 Lvl) [facility]2019-02-05 14:50:00 Test Item Value Reference Range Interpretation Comments C-Peptide (test code = C-Peptide) 8.17 0.48-5.[address] [facility]2019-02-05 14:50:00 Test Item Value Reference Range Interpretation Comments A/G Ratio (test code = A/G Ratio) 0.9 1 0.7-1.[address] [facility]2019-02-05 14:50:00 Test Item Value Reference Range Interpretation Comments B/C Ratio (test code = B/C Ratio) 9 1 6-25 [place] 373519-02-05 14:50:00 Test Item Value Reference Range Interpretation Comments AGAP (test code = AGAP) 12.4 10.0-20.[address] [facility]2019-02-05 14:50:00 Test Item Value Reference Range Interpretation Comments Globulin (test code = Globulin) 4.2 2.7-4.[address] [facility]2019-02-05 14:50:00 Test Item Value Reference Range Interpretation Comments eGFR (test code = eGFR) [address] [facility]2019-02-05 14:50:00 Test Item Value Reference Range Interpretation Comments ALT (test code = ALT) 12 See_Comment [Auto mated message] The system which ge nerated this result transmit nicko reference range : <=65. The reference range was not used to interpr et this result as adebayo l/abnormal. [facility]2019-02-05 14:50:00 Test Item Value Reference Range Interpretation Comments Alk Phos (test code = Alk Phos) 70 39-[address] [facility]2019-02-05 14:50:00 Test Item Value Reference Range Interpretation Comments AST (test code = AST) 8 See_Comment [Auto mated message] The system which ge nerated this result transmit nicko reference range : <=37. The reference range was not used to interpr et this result as adebayo l/abnormal. [facility]2019-02-05 14:50:00 Test Item Value Reference Range Interpretation Comments Albumin Lvl (test code = Albumin Lvl) 3.7 3.5-5.[address] [facility]2019-02-05 14:50:00 Test Item Value Reference Range Interpretation Comments Bili Total (test code = Bili Total) 0.3 0.2-1.[address] [facility]2019-02-05 14:50:00 Test Item Value Reference Range Interpretation Comments Glucose Lvl (test code = Glucose Lvl) 83 70-[address] [facility]2019-02-05 14:50:00 Test Item Value Reference Range Interpretation Comments Sodium Lvl (test code = Sodium Lvl) 137 135-[address] [facility]2019-02-05 14:50:00 Test Item Value Reference Range Interpretation Comments BUN (test code = BUN) 35 7-[address] [facility]2019-02-05 14:50:00 Test Item Value Reference Range Interpretation Comments Creatinine Lvl (test code = Creatinine 4.10 0.50-1.40 Lvl) [facility]2019-02-05 14:50:00 Test Item Value Reference Range Interpretation Comments CO2 (test code = CO2) 25 24-[address] [facility]2019-02-05 14:50:00 Test Item Value Reference Range Interpretation Comments Calcium Lvl (test code = Calcium Lvl) 9.7 8.5-10.[address] [facility]2019-02-05 14:50:00 Test Item Value Reference Range Interpretation Comments Potassium Lvl (test code = Potassium 4.4 3.5-5.1 Lvl) [facility]2019-02-05 14:50:00 Test Item Value Reference Range Interpretation Comments Chloride Lvl (test code = Chloride Lvl) 104 95-[address] [facility]2019-02-05 14:50:00 Test Item Value Reference Range Interpretation Comments Total Protein (test code = Total 7.9 6.4-8.4 Protein) [facility] [id number] 14:50:00 Test Item Value Reference Range Interpretation Comments Opiate Qnt (test code = Opiate Qnt) Negative [facility] [id number] 14:50:00 Test Item Value Reference Range Interpretation Comments Phencyclidine Scr (test code = Negative Phencyclidine Scr) [facility] [id number] 14:50:00 Test Item Value Reference Range Interpretation Comments Kaitlin Scr (test code = Kaitlin Scr) Negative [facility] [id number] 14:50:00 Test Item Value Reference Range Interpretation Comments Methadone Scr (test code = Methadone Negative Scr) [facility] [id number] 14:50:00 Test Item Value Reference Range Interpretation Comments Cocaine Scr (test code = Cocaine Negative Scr) [facility] [id number] 14:50:00 Test Item Value Reference Range Interpretation Comments Cannab Scr (test code = Cannab Scr) Negative [facility] [id number] 14:50:00 Test Item Value Reference Range Interpretation Comments Amph Scr (test code = Amph Scr) Negative [facility] [id number] 14:50:00 Test Item Value Reference Range Interpretation Comments Opiate Scr (test code = Opiate Scr) Positive [facility] [id number] 14:50:00 Test Item Value Reference Range Interpretation Comments 6-Acetylmor Scr (test code = Negative 6-Acetylmor Scr) [facility] [id number] 14:50:00 Test Item Value Reference Range Interpretation Comments Benzodiaz Scr (test code = Benzodiaz Negative Scr) [facility]woodUkttnvqUVBBAUZLYG1937-15-81 14:50:00 Test Item Value Reference Range Interpretation Comments Basophils # (test code 0.1 See_Comment [Aut omated message] The = Basophils #) system which generated this result tra nsmitted reference range : <=0.2. The reference r carlos was not used to int erpret this result as normal/abnormal . [facility]KhqgduuZXZBQRDRUW2605-97-15 14:50:00 Test Item Value Reference Range Interpretation Comments Segs (test code = Segs) 68.2 45.0-75.0 [facility]woodZnxcdplUVQUBZOTNC9178-68-94 14:50:00 Test Item Value Reference Range Interpretation Comments Lymphocytes (test code = Lymphocytes) 20.5 20.0-40.0 [facility]woodQbqbukfMZDIRUXTZM2284-01-70 14:50:00 Test Item Value Reference Range Interpretation Comments Neutrophils # (test code = Neutrophils 6.0 1.5-8.1 #) [facility]gdegxyNQZUGWMVUQ3990-53-62 14:50:00 Test Item Value Reference Range Interpretation Comments Basophils (test code = 0.6 See_Comment [Aut omated message] The Basophils) system which ge nerated this result tra nsmitted reference range : <=1.0. The reference r carlos was not used to int erpret this result as normal/abnormal . [facility] HospitalBaxefevPHKFVGVXKJ3008-55-16 14:50:00 Test Item Value Reference Range Interpretation Comments Lymphocytes # (test code = Lymphocytes 1.8 1.0-5.5 #) [facility] HospitalSydtdawHIJVKVMTOR3483-49-86 14:50:00 Test Item Value Reference Range Interpretation Comments Eosinophils (test code = 3.2 See_Comment [A utomated message] The Eosinophils) system which ge nerated this result tra nsmitted reference range : <=4.0. The reference r carlos was not used to int erpret this result as normal/abnormal . [facility] HospitalFxmktfcCXBYNNKNNA2531-13-53 14:50:00 Test Item Value Reference Range Interpretation Comments Monocytes (test code = Monocytes) 7.5 2.0-12.0 [facility] HospitalYxxazobUZEZTEFRQZ1484-86-46 14:50:00 Test Item Value Reference Range Interpretation Comments Eosinophils # (test code 0.3 See_Comment [A utomated message] The = Eosinophils #) system whic h generated this result tra nsmitted reference range : <=0.5. The reference r carlos was not used to int erpret this result as normal/abnormal . [facility] HospitalGvmsjdrWNNMUJHKDJ8730-39-40 14:50:00 Test Item Value Reference Range Interpretation Comments Monocytes # (test code 0.7 See_Comment [Aut omated message] The = Monocytes #) system which generated this result tra nsmitted reference range : <=0.8. The reference r carlos was not used to int erpret this result as normal/abnormal . [facility] HospitalVgundioYTPPHHNSQP4419-84-23 14:50:00 Test Item Value Reference Range Interpretation Comments Hgb (test code = Hgb) 13.3 14.0-18.0 [facility] HospitalUzwyswbRPRNGHCOJQ9012-08-18 14:50:00 Test Item Value Reference Range Interpretation Comments Hct (test code = Hct) 41.1 42.0-54.0 [facility] HospitalPlwgixzGLQBPJDTBF6870-00-07 14:50:00 Test Item Value Reference Range Interpretation Comments MCV (test code = MCV) 88.4 80.0-94.0 [facility] HospitalGriqrflWIWCUCNRQF2576-07-63 14:50:00 Test Item Value Reference Range Interpretation Comments MCH (test code = MCH) 28.7 pg 27.0-31.0 [facility] HospitalHfjghgjDVAWMPYXNL2242-01-54 14:50:00 Test Item Value Reference Range Interpretation Comments RBC (test code = RBC) 4.65 4.70-6.10 [facility] HospitalDymfyofJQWJJWOLFY1084-18-77 14:50:00 Test Item Value Reference Range Interpretation Comments RDW (test code = RDW) 14.6 11.5-14.5 [facility] HospitalZywxxkvGAWOVDERTK4505-93-72 14:50:00 Test Item Value Reference Range Interpretation Comments MCHC (test code = MCHC) 32.5 32.0-36.0 [facility] HospitalSinajjlTFHIMEQUJO5785-78-54 14:50:00 Test Item Value Reference Range Interpretation Comments Platelet (test code = Platelet) 238 133-450 [facility] HospitalKrmoalsLANTGUKZJK1484-48-71 14:50:00 Test Item Value Reference Range Interpretation Comments MPV (test code = MPV) 9.0 7.4-10.4 [facility] HospitalXdbdxygYCGLAFPLFN5905-72-21 14:50:00 Test Item Value Reference Range Interpretation Comments WBC (test code = WBC) 8.8 3.7-10.4 [facility] HospitalNzovlvqCDPRGPJJOC0168-94-15 14:50:00 Test Item Value Reference Range Interpretation Comments INR (test code = INR) 0.96 1 0.85-1.17 [facility] HospitalDhuhtrhAZNSTQXARX3012-94-76 14:50:00 Test Item Value Reference Range Interpretation Comments PT (test code = PT) 12.6 s 12.0-14.7 [facility] HospitalKjaqtbhEIMPDFZXWB2138-69-48 14:50:00 Test Item Value Reference Range Interpretation Comments PTT (test code = PTT) 34.7 s 22.9-35.8 [facility]EcefxtvUAISOPBFBC7424-65-40 14:50:00 Test Item Value Reference Range Interpretation Comments Treponemal Ab (test code Non-Reactive = Treponemal Ab) *NA*(04/06/18 8:50 AM) [facility]evilleAjnjahzJPHDWCGFLJ1681-65-84 14:50:00 Test Item Value Reference Range Interpretation Comments Varicella IgM (test no gt See_Comment [Automa nicko message] The code = Varicella IgM) system which generated this result tra nsmitted reference range : <=0.90. The reference r carlos was not used to int erpret this result as normal/abnormal . [facility]evilleXqvxaymTZNXPPKOQY9691-36-29 14:50:00 Test Item Value Reference Range Interpretation Comments Varicella IgG (test code = Varicella no gt IgG) [facility]evilleGzqokfqSBOCDDMLLY2333-32-48 14:50:00 Test Item Value Reference Range Interpretation Comments Hep Bs Ag (test code Negative *NA*(04/06/18 = Hep Bs Ag) 8:50 AM) [facility]evilleKxjwctqSPVSNVQROX7629-23-36 14:50:00 Test Item Value Reference Range Interpretation Comments HSV 1 IgG (test code = HSV 1 IgG) no gt [facility]evilleFnebkrdUBWYYZFDNF8028-52-08 14:50:00 Test Item Value Reference Range Interpretation Comments HSV 2 IgG (test code = HSV 2 IgG) no [facility]2019-02-05 14:50:00 Test Item Value Reference Range Interpretation Comments Lambda Free Light Chains (test code = 66.41 5.70-26.30 Lambda Free Light Chains) [facility]evilleYvpzrmmEXPOAHOOXM9986-92-83 14:50:00 Test Item Value Reference Range Interpretation Comments [place]/Lambda Free Light Chains Ratio 1.66 0.26-1.65 (test code = [place]/Lambda Free Light Chains Ratio) [facility]evilleBmjqikxOWEZBLCGKP4188-90-39 14:50:00 Test Item Value Reference Range Interpretation Comments [place] Free Light Chains (test code = 110.34 3.30-19.40 [place] Free Light Chains) [facility]evilleFcxjdiyREJNHYDPKD4028-68-43 14:50:00 Test Item Value Reference Range Interpretation Comments Hep C Ab (test code = Negative *NA*(04/06/18 Hep C Ab) 8:50 AM) [facility]evilleFgtrhxsWLPGKMKGHC5151-60-73 14:50:00 Test Item Value Reference Range Interpretation Comments T-Spot.TB (test code Negative (04/06/18 8:50 = T-Spot.TB) AM) [facility]evilleMzmfhftITRJZVSVBI0154-02-48 14:50:00 Test Item Value Reference Range Interpretation [...] and concur with the resident's interpretation. CPT 98851-IF [facility]evilleTvbycnyIEDHSQPSNN7409-67-53 14:50:00 Test Item Value Reference Range Interpretation Comments Beta Glob (test code = Beta Glob) 0.99 0.50-1.15 [facility]evilleUidkythZJXRARUGSY8045-55-61 14:50:00 Test Item Value Reference Range Interpretation Comments Gamma Glob (test code = Gamma Glob) 1.28 0.71-1.57 [facility]evilleNcpnpolJTPKCICBAV3269-45-76 14:50:00 Test Item Value Reference Range Interpretation Comments Tot Prot (SPE) (test code = Tot Prot 7.9 6.4-8.4 (SPE)) [facility]evilleYnvjfsqURZGXXEVKO2173-58-25 14:50:00 Test Item Value Reference Range Interpretation Comments Albumin (SPE) (test code = Albumin 4.25 3.57-5.55 (SPE)) [facility]evilleHrdibzgTMUXBZOLZR3792-41-58 14:50:00 Test Item Value Reference Range Interpretation Comments Gamma % (test code = Gamma %) 16.2 11.1-18.7 [facility]evilleXaqgeojQXITNOIGDO3873-27-42 14:50:00 Test Item Value Reference Range Interpretation Comments Alpha 1 Glob (test code = Alpha 1 Glob) 0.43 0.18-0.41 [facility]evilleGdeujlmIMODCCIZJT4684-07-59 14:50:00 Test Item Value Reference Range Interpretation Comments Alpha 2 Glob (test code = Alpha 2 Glob) 0.96 0.45-1.00 [facility]XfvygsiXAOLJJEJPL3902-43-06 14:50:00 Test Item Value Reference Range Interpretation Comments Alpha 1 % (test code = Alpha 1 %) 5.4 2.8-4.9 [facility]evilleIjdqrjzYYJSSASWQD5698-57-20 14:50:00 Test Item Value Reference Range Interpretation Comments Albumin % (test code = Albumin %) 53.8 55.8-66.1 [facility]evilleXbinnsdBZEXODDXGN0117-56-61 14:50:00 Test Item Value Reference Range Interpretation Comments Beta % (test code = Beta %) 12.5 7.8-13.7 [facility]evilleEqnahamNJZGAPZGSO4148-52-06 14:50:00 Test Item Value Reference Range Interpretation Comments Alpha 2 % (test code = Alpha 2 %) 12.1 7.0-11.9 [facility]evilleXuipmnjIGRAPAGXOA7587-89-86 14:50:00 Test Item Value Reference Range Interpretation Comments EBV VCA IgM (test code = EBV VCA IgM) no gt [facility]evilleUavxwwxRKRPJCODEU2011-87-69 14:50:00 Test Item Value Reference Range Interpretation Comments EBV VCA IgG (test code = EBV VCA IgG) no gt [facility]evilleSxwzrqxHKPWOCQTRB6979-28-04 14:50:00 Test Item Value Reference Range Interpretation Comments Hep Bs Ab (test code = Hep Bs Ab) 5.2 [facility]evilleTvwzauuHMWPDMTJTJ5695-23-12 14:50:00 Test Item Value Reference Range Interpretation Comments Hep B Core Ab (test Negative *NA*(04/06/18 code = Hep B Core Ab) 8:50 AM) [facility]evilleUvaueykCTWITKPCHN9003-75-71 14:50:00 Test Item Value Reference Range Interpretation Comments HIV Ag/Ab 4th Gen Negative *NA*(04/06/18 (test code = HIV 8:50 AM) Ag/Ab 4th Gen) [facility]evilleBxjsyscIHTKILKMKH5688-53-77 14:50:00 Test Item Value Reference Range Interpretation [...] and concur with the resident's interpretation. CPT 75819-SY [facility]evilleChbxavvZKPNGZFQNL8509-76-97 14:50:00 Test Item Value Reference Range Interpretation Comments KAREN Ser Pattern A distinct monoclonal (test code = KARNE Ser band is present in the Pattern) IgM izabella with a corresponding faint band in the kappa light chain izabella. The polyclonal gamma globulin background is preserved in all lanes. [facility]evilleApigxcuYJXQPQLWQO9504-49-49 14:50:00 Test Item Value Reference Range Interpretation Comments CMV IgG (test code = Reactive *ABN*(04/06/18 CMV IgG) 8:50 AM) [facility]MnqilkaPLWIWVKVGN0736-98-14 14:50:00 Test Item Value Reference Range Interpretation Comments CMV IgM (test code = CMV IgM) 0.3 [facility] PasoTtjnmbwKURGGJ4834-54-08 14:50:00 Test Item Value Reference Range Interpretation Comments VLDL (test code = VLDL) 36 1 [facility] PasoHchzouwXCAETT1624-92-42 14:50:00 Test Item Value Reference Range Interpretation Comments LDL (Calculated) (test code = LDL 132 (Calculated)) [facility] PasoAuwemduQZBULR3463-25-72 14:50:00 Test Item Value Reference Range Interpretation Comments Chol (test code = Chol) 199 [facility] PasoYinjnuzHWSCXH3520-53-52 14:50:00 Test Item Value Reference Range Interpretation Comments Trig (test code = Trig) 182 [facility] PasoPwwxbgxNWQBER6130-69-25 14:50:00 Test Item Value Reference Range Interpretation Comments HDL (test code = HDL) 31 [facility] PasoDxjkzyyZNKKEY0825-13-66 14:50:00 Test Item Value Reference Range Interpretation Comments CHD Risk (test code = CHD Risk) 6.42 1 4.00-7.30 [facility] FZZPSQVFGL1810-66-28 14:50:00 Test Item Value Reference Range Interpretation Comments HBV DNA Log10 (test code = HBV DNA no gt Log10) [facility] ICZAPHVHVJ9467-03-65 14:50:00 Test Item Value Reference Range Interpretation Comments Hep B PCR Qnt (test Not Detected (04/06/18 code = Hep B PCR Qnt) 8:50 AM) [facility]PAR[facility] - IWCNKTMM5152-05-23 14:50:00 Test Item Value Reference Range Interpretation Comments Strongyloides Antibodies (test code Negative = Strongyloides Antibodies) [facility]woodPARATHYROID FBFOFDL0682-28-37 14:50:00 Test Item Value Reference Range Interpretation Comments PTH Intact (test code = PTH Intact) 180.7 18.4-80.1 [facility]woodSPECIAL KNNZYKOVY7263-13-56 14:50:00 Test Item Value Reference Range Interpretation Comments Hgb A1C (test code = Hgb A1C) 6.5 [facility] [id number] 14:50:00 Test Item Value Reference Range Interpretation Comments PSA (test code = PSA) 1.00 See_Comment [Auto mated message] The system which ge nerated this result transmit nicko reference range : <=4.00. The reference r carlos was not used to interpr et this result as adebayo l/abnormal. [facility] KVTJRMTUD1051-47-90 14:50:00 Test Item Value Reference Range Interpretation Comments Nicotine Lvl (test code = None Detected Nicotine Lvl) [facility] WGMTEPAWU0878-45-40 14:50:00 Test Item Value Reference Range Interpretation Comments Cotinine Lvl (test code = None Detected Cotinine Lvl) [facility] AND [id number] 14:50:00 Test Item Value Reference Range Interpretation Comments UA Urobilinogen (test code = UA <=1.0 mg/dL 0.1-1.0 Urobilinogen) [facility] AND [id number] 14:50:00 Test Item Value Reference Range Interpretation Comments UA Sq Epi (test code = UA Sq Epi) None Seen [facility] AND [id number] 14:50:00 Test Item Value Reference Range Interpretation Comments UA Turbidity (test code = Clear (04/06/18 8:50 UA Turbidity) AM) [facility] AND [id number] 14:50:00 Test Item Value Reference Range Interpretation Comments UA Color (test code = Yellow *NA*(04/06/18 8:50 UA Color) AM) [facility] AND [id number] 14:50:00 Test Item Value Reference Range Interpretation Comments UA pH (test code = UA pH) 5.5 1 5.0-8.0 [facility] AND [id number] 14:50:00 Test Item Value Reference Range Interpretation Comments UA Spec Grav (test code = UA Spec 1.009 1 Grav) [facility] AND [id number] 14:50:00 Test Item Value Reference Range Interpretation Comments UA WBC (test code = 1 See_Comment [Automa nicko message] The UA WBC) system which ge nerated this result transmit nicko reference range : <=5. The reference range was not used to interpr et this result as adebayo l/abnormal. [facility] AND [id number] 14:50:00 Test Item Value Reference Range Interpretation Comments UA Leuk Est (test Negative (04/06/18 8:50 code = UA Leuk Est) AM) [facility] AND [id number] 14:50:00 Test Item Value Reference Range Interpretation Comments UA Nitrite (test code Negative (04/06/18 8:50 = UA Nitrite) AM) [facility] AND [id number] 14:50:00 Test Item Value Reference Range Interpretation Comments UA Ketones (test code = UA Negative mg/dL Ketones) [facility] AND [id number] 14:50:00 Test Item Value Reference Range Interpretation Comments UA Glucose (test code = UA Negative mg/dL Glucose) [facility] AND [id number] 14:50:00 Test Item Value Reference Range Interpretation Comments UA Protein (test code = UA Protein) 100 mg/dL [facility] AND [id number] 14:50:00 Test Item Value Reference Range Interpretation Comments UA Blood (test code = Trace *ABN*(04/06/18 UA Blood) 8:50 AM) [facility] AND [id number] 14:50:00 Test Item Value Reference Range Interpretation Comments UA Bili (test code = Negative *NA*(04/06/18 UA Bili) 8:50 AM) [facility]2019-02-05 14:50:00 Test Item Value Reference Range Interpretation Comments U Microalb (test code = U Microalb) 638.0 [facility]2019-02-05 14:50:00 Test Item Value Reference Range Interpretation Comments U Protein (test code = U Protein) 117.7 [facility]2019-02-05 14:50:00 Test Item Value Reference Range Interpretation Comments U Prot/Creat (test code = U 0.78 1 Prot/Creat) [facility]2019-02-05 14:50:00 Test Item Value Reference Range Interpretation Comments U Creatinine (test code = U 151.00 Creatinine) [facility]2019-02-05 14:50:00 Test Item Value Reference Range Interpretation Comments Ferritin Lvl (test code = Ferritin Lvl) 213 22-275 [facility]2019-02-05 14:50:00 Test Item Value Reference Range Interpretation Comments UIBC (test code = UIBC) 261 110-370 [facility]2019-02-05 14:50:00 Test Item Value Reference Range Interpretation Comments % Satur Fe (test code = % Satur Fe) 15 12-57 [facility]2019-02-05 14:50:00 Test Item Value Reference Range Interpretation Comments Iron (test code = Iron) 46 45-160 [facility]2019-02-05 14:50:00 Test Item Value Reference Range Interpretation Comments TIBC (test code = TIBC) 307 228-428 [facility] [id number] 14:50:00 Test Item Value Reference Range Interpretation Comments OP ABORh Int (test code = OP ABORh Int) O POS [facility] [id number] 14:50:00 Test Item Value Reference Range Interpretation Comments Vitamin D, 25-OH, Total (test code = 36.8 30.0-100.0 Vitamin D, 25-OH, Total) [facility] [id number] 14:50:00 Test Item Value Reference Range Interpretation Comments Uric Acid (test code = Uric Acid) 7.3 3.8-8.0 [facility] [id number] 14:50:00 Test Item Value Reference Range Interpretation Comments Phosphorus (test code = Phosphorus) 3.4 2.5-4.5 [facility] [id number] 14:50:00 Test Item Value Reference Range Interpretation Comments Magnesium Lvl (test code = Magnesium 2.0 1.8-2.4 Lvl) [facility] [id number] 14:50:00 Test Item Value Reference Range Interpretation Comments C-Peptide (test code = C-Peptide) 8.17 0.48-5.05 [facility] [id number] 14:50:00 Test Item Value Reference Range Interpretation Comments A/G Ratio (test code = A/G Ratio) 0.9 1 0.7-1.[address] [facility]2019-02-05 14:50:00 Test Item Value Reference Range Interpretation Comments B/C Ratio (test code = B/C Ratio) 9 1 6-25 [facility] [id number] 14:50:00 Test Item Value Reference Range Interpretation Comments AGAP (test code = AGAP) 12.4 10.0-20.[address] [facility]2019-02-05 14:50:00 Test Item Value Reference Range Interpretation Comments Globulin (test code = Globulin) 4.2 2.7-4.[address] [facility]2019-02-05 14:50:00 Test Item Value Reference Range Interpretation Comments eGFR (test code = eGFR) [address] [facility]2019-02-05 14:50:00 Test Item Value Reference Range Interpretation Comments ALT (test code = ALT) 12 See_Comment [Auto mated message] The system which ge nerated this result transmit nicko reference range : <=65. The reference range was not used to interpr et this result as adebayo l/abnormal. [facility]2019-02-05 14:50:00 Test Item Value Reference Range Interpretation Comments Alk Phos (test code = Alk Phos) 70 39-[address] [facility]2019-02-05 14:50:00 Test Item Value Reference Range Interpretation Comments AST (test code = AST) 8 See_Comment [Auto mated message] The system which ge nerated this result transmit nicko reference range : <=37. The reference range was not used to interpr et this result as adebayo l/abnormal. [facility]2019-02-05 14:50:00 Test Item Value Reference Range Interpretation Comments Albumin Lvl (test code = Albumin Lvl) 3.7 3.5-5.[address] [facility]2019-02-05 14:50:00 Test Item Value Reference Range Interpretation Comments Bili Total (test code = Bili Total) 0.3 0.2-1.[address] [facility]2019-02-05 14:50:00 Test Item Value Reference Range Interpretation Comments Glucose Lvl (test code = Glucose Lvl) 83 70-[address] [facility]2019-02-05 14:50:00 Test Item Value Reference Range Interpretation Comments Sodium Lvl (test code = Sodium Lvl) 137 135-[address] [facility]2019-02-05 14:50:00 Test Item Value Reference Range Interpretation Comments BUN (test code = BUN) 35 7-[address] [facility]2019-02-05 14:50:00 Test Item Value Reference Range Interpretation Comments Creatinine Lvl (test code = Creatinine 4.10 0.50-1.40 Lvl) [facility] [id number] 14:50:00 Test Item Value Reference Range Interpretation Comments CO2 (test code = CO2) 25 24-32 [facility] [id number] 14:50:00 Test Item Value Reference Range Interpretation Comments Calcium Lvl (test code = Calcium Lvl) 9.7 8.5-10.[address] [facility]2019-02-05 14:50:00 Test Item Value Reference Range Interpretation Comments Potassium Lvl (test code = Potassium 4.4 3.5-5.1 Lvl) [facility] [id number] 14:50:00 Test Item Value Reference Range Interpretation Comments Chloride Lvl (test code = Chloride Lvl) 104 95-109 [facility] [id number] 14:50:00 Test Item Value Reference Range Interpretation Comments Total Protein (test code = Total 7.9 6.4-8.4 Protein) [facility] [id number] 14:50:00 Test Item Value Reference Range Interpretation Comments Opiate Qnt (test code = Opiate Qnt) Negative [facility] [id number] 14:50:00 Test Item Value Reference Range Interpretation Comments Phencyclidine Scr (test code = Negative Phencyclidine Scr) [facility] [id number] 14:50:00 Test Item Value Reference Range Interpretation Comments Kaitlin Scr (test code = Kaitlin Scr) Negative [facility] [id number] 14:50:00 Test Item Value Reference Range Interpretation Comments Methadone Scr (test code = Methadone Negative Scr) [facility] [id number] 14:50:00 Test Item Value Reference Range Interpretation Comments Cocaine Scr (test code = Cocaine Negative Scr) [facility] [id number] 14:50:00 Test Item Value Reference Range Interpretation Comments Cannab Scr (test code = Cannab Scr) Negative [facility] [id number] 14:50:00 Test Item Value Reference Range Interpretation Comments Amph Scr (test code = Amph Scr) Negative [facility] [id number] 14:50:00 Test Item Value Reference Range Interpretation Comments Opiate Scr (test code = Opiate Scr) Positive [facility] [id number] 14:50:00 Test Item Value Reference Range Interpretation Comments 6-Acetylmor Scr (test code = Negative 6-Acetylmor Scr) [facility]2019-02-05 14:50:00 Test Item Value Reference Range Interpretation Comments Benzodiaz Scr (test code = Benzodiaz Negative Scr) [facility] HospitalCbaofleCOXCCPLHTP7675-01-04 14:50:00 Test Item Value Reference Range Interpretation Comments Basophils # (test code 0.1 See_Comment [Aut omated message] The = Basophils #) system which generated this result tra nsmitted reference range : <=0.2. The reference r carlos was not used to int erpret this result as normal/abnormal . [facility] HospitalOfrpnglAVGMZMIKEJ1213-36-07 14:50:00 Test Item Value Reference Range Interpretation Comments Segs (test code = Segs) 68.2 45.0-75.0 [facility] HospitalAmlhfkcYDTQDBSDNT7402-78-50 14:50:00 Test Item Value Reference Range Interpretation Comments Lymphocytes (test code = Lymphocytes) 20.5 20.0-40.0 [facility] HospitalRpxmahgFBAOHLNQVS7749-56-88 14:50:00 Test Item Value Reference Range Interpretation Comments Neutrophils # (test code = Neutrophils 6.0 1.5-8.1 #) [facility] HospitalUjouwqtRNXNUZYIUU3008-93-98 14:50:00 Test Item Value Reference Range Interpretation Comments Basophils (test code = 0.6 See_Comment [Aut omated message] The Basophils) system which ge nerated this result tra nsmitted reference range : <=1.0. The reference r carlos was not used to int erpret this result as normal/abnormal . [facility] HospitalMcuyvvcGVXMWDAQNF4515-57-72 14:50:00 Test Item Value Reference Range Interpretation Comments Lymphocytes # (test code = Lymphocytes 1.8 1.0-5.5 #) [facility] HospitalBkvtvseXAOSEVUSIE5061-53-83 14:50:00 Test Item Value Reference Range Interpretation Comments Eosinophils (test code = 3.2 See_Comment [A utomated message] The Eosinophils) system which ge nerated this result tra nsmitted reference range : <=4.0. The reference r carlos was not used to int erpret this result as normal/abnormal . [facility] HospitalEnrrgahAREJLLAZJL1612-01-26 14:50:00 Test Item Value Reference Range Interpretation Comments Monocytes (test code = Monocytes) 7.5 2.0-12.0 [facility] HospitalUiyatmsJTVEWXPMOY2408-43-77 14:50:00 Test Item Value Reference Range Interpretation Comments Eosinophils # (test code 0.3 See_Comment [A utomated message] The = Eosinophils #) system whic h generated this result tra nsmitted reference range : <=0.5. The reference r carlos was not used to int erpret this result as normal/abnormal . [facility] HospitalAtoxntbVEZULYPYBF8880-22-85 14:50:00 Test Item Value Reference Range Interpretation Comments Monocytes # (test code 0.7 See_Comment [Aut omated message] The = Monocytes #) system which generated this result tra nsmitted reference range : <=0.8. The reference r carlos was not used to int erpret this result as normal/abnormal . [facility] HospitalClkxxdvYOCAAQOOWP5769-61-55 14:50:00 Test Item Value Reference Range Interpretation Comments Hgb (test code = Hgb) 13.3 14.0-18.0 [facility] HospitalOlkzcufAOPMFQAWEF1664-67-97 14:50:00 Test Item Value Reference Range Interpretation Comments Hct (test code = Hct) 41.1 42.0-54.0 [facility] HospitalLqzzikcXZRZVLGLYI5075-21-84 14:50:00 Test Item Value Reference Range Interpretation Comments MCV (test code = MCV) 88.4 80.0-94.0 [facility] HospitalNtobcsjPIAHZBQQJI0620-91-94 14:50:00 Test Item Value Reference Range Interpretation Comments MCH (test code = MCH) 28.7 pg 27.0-31.0 [facility] HospitalJjautrbVRKRDBTUZZ2832-48-25 14:50:00 Test Item Value Reference Range Interpretation Comments RBC (test code = RBC) 4.65 4.70-6.10 [facility] HospitalSzpgvayYMYUWZOUEL5259-42-23 14:50:00 Test Item Value Reference Range Interpretation Comments RDW (test code = RDW) 14.6 11.5-14.5 [facility] HospitalKimomdxAZJEVRHETE9324-87-51 14:50:00 Test Item Value Reference Range Interpretation Comments MCHC (test code = MCHC) 32.5 32.0-36.0 [facility] HospitalRsjkrtdYUQWQTWBDH8924-63-39 14:50:00 Test Item Value Reference Range Interpretation Comments Platelet (test code = Platelet) 238 133-450 [facility] HospitalDgbpgynTWDJYQDNEJ7914-38-37 14:50:00 Test Item Value Reference Range Interpretation Comments MPV (test code = MPV) 9.0 7.4-10.4 [facility] HospitalPvwdfrlPOJQMZQVFU4937-13-26 14:50:00 Test Item Value Reference Range Interpretation Comments WBC (test code = WBC) 8.8 3.7-10.4 [facility] HospitalUppgvztBEDGCZIHMO3861-19-74 14:50:00 Test Item Value Reference Range Interpretation Comments INR (test code = INR) 0.96 1 0.85-1.17 [facility] HospitalUabgjhrYGIZKLEMJR4291-85-10 14:50:00 Test Item Value Reference Range Interpretation Comments PT (test code = PT) 12.6 s 12.0-14.7 [facility] HospitalYakvwglNCKRUAGJGU4848-91-51 14:50:00 Test Item Value Reference Range Interpretation Comments PTT (test code = PTT) 34.7 s 22.9-35.8 [facility]EesunqiNSGGVKBTZV0187-94-42 14:50:00 Test Item Value Reference Range Interpretation Comments Treponemal Ab (test code Non-Reactive = Treponemal Ab) *NA*(04/06/18 8:50 AM) [facility]evilleUopnuihJJERAEUELH2996-98-71 14:50:00 Test Item Value Reference Range Interpretation Comments Varicella IgM (test no gt See_Comment [Automa nicko message] The code = Varicella IgM) system which generated this result tra nsmitted reference range : <=0.90. The reference r carlos was not used to int erpret this result as normal/abnormal . [facility] BeevilleDzujfbaAETAYEDYSU3978-90-46 14:50:00 Test Item Value Reference Range Interpretation Comments Varicella IgG (test code = Varicella no gt IgG) [facility]evilleYwhzgfaOHYXZQYVNP5298-72-45 14:50:00 Test Item Value Reference Range Interpretation Comments Hep Bs Ag (test code Negative *NA*(04/06/18 = Hep Bs Ag) 8:50 AM) [facility]evilleHghjyzzEKPAHCXWRM9632-28-88 14:50:00 Test Item Value Reference Range Interpretation Comments HSV 1 IgG (test code = HSV 1 IgG) no gt [facility]evilleWwvqckxFIYCYDSWFV5280-74-97 14:50:00 Test Item Value Reference Range Interpretation Comments HSV 2 IgG (test code = HSV 2 IgG) no gt [facility] BeevilleVezaijvVUBMSRQJPA7682-51-29 14:50:00 Test Item Value Reference Range Interpretation Comments Lambda Free Light Chains (test code = 66.41 5.70-26.30 Lambda Free Light Chains) [facility]evilleVvtupiiIZBTKKCDTY9249-91-12 14:50:00 Test Item Value Reference Range Interpretation Comments [place]/Lambda Free Light Chains Ratio 1.66 0.26-1.65 (test code = [place]/Lambda Free Light Chains Ratio) [facility]evilleNuzyxicRZHUMIKOGS6004-28-78 14:50:00 Test Item Value Reference Range Interpretation Comments [place] Free Light Chains (test code = 110.34 3.30-19.40 [place] Free Light Chains) [facility]evilleYaqualpOVEYGHZTKN5279-50-95 14:50:00 Test Item Value Reference Range Interpretation Comments Hep C Ab (test code = Negative *NA*(04/06/18 Hep C Ab) 8:50 AM) [facility]evilleImrgiaxTJYYOXWQFU0684-30-70 14:50:00 Test Item Value Reference Range Interpretation Comments T-Spot.TB (test code Negative (04/06/18 8:50 = T-Spot.TB) AM) [facility]evilleAtdpowmANJGZOHLSJ5857-26-00 14:50:00 Test Item Value Reference Range Interpretation [...] and concur with the resident's interpretation. CPT 02449-KL [facility]woodHoifyjsCWXHXZFINK2123-70-50 14:50:00 Test Item Value Reference Range Interpretation Comments Beta Glob (test code = Beta Glob) 0.99 0.50-1.15 [facility]woodAdrgsgdQHWWJIDAUT6195-22-22 14:50:00 Test Item Value Reference Range Interpretation Comments Gamma Glob (test code = Gamma Glob) 1.28 0.71-1.57 [facility]woodSrlmcjdSZDLBWFMHR7620-03-93 14:50:00 Test Item Value Reference Range Interpretation Comments Tot Prot (SPE) (test code = Tot Prot 7.9 6.4-8.4 (SPE)) [facility]evillePzwhjrdPHEWYJEWNF8765-06-81 14:50:00 Test Item Value Reference Range Interpretation Comments Albumin (SPE) (test code = Albumin 4.25 3.57-5.55 (SPE)) [facility] BeevilleJwufyrdNBQTTAJRRD1064-23-33 14:50:00 Test Item Value Reference Range Interpretation Comments Gamma % (test code = Gamma %) 16.2 11.1-18.7 [facility]evilleOrrptayFPLMFBOGCO3481-80-11 14:50:00 Test Item Value Reference Range Interpretation Comments Alpha 1 Glob (test code = Alpha 1 Glob) 0.43 0.18-0.41 [facility]evilleOsldwnhGMBMMRQRTA7427-42-04 14:50:00 Test Item Value Reference Range Interpretation Comments Alpha 2 Glob (test code = Alpha 2 Glob) 0.96 0.45-1.00 [facility] BeevilleNtamjciDAEBNNKNJG5722-47-70 14:50:00 Test Item Value Reference Range Interpretation Comments Alpha 1 % (test code = Alpha 1 %) 5.4 2.8-4.9 [facility]evillePtpaspcPSEQSRFTBP5900-82-02 14:50:00 Test Item Value Reference Range Interpretation Comments Albumin % (test code = Albumin %) 53.8 55.8-66.1 [facility]evilleSplwbhkBIFWIDBWAW1574-50-96 14:50:00 Test Item Value Reference Range Interpretation Comments Beta % (test code = Beta %) 12.5 7.8-13.7 [facility]evilleZnopqhbGQWIFJGUYP6899-29-99 14:50:00 Test Item Value Reference Range Interpretation Comments Alpha 2 % (test code = Alpha 2 %) 12.1 7.0-11.9 [facility]evilleCjjywdmDNIJDWDRPP7436-49-72 14:50:00 Test Item Value Reference Range Interpretation Comments EBV VCA IgM (test code = EBV VCA IgM) no gt [facility]evilleCdwiqqkYCANFZWARJ1955-70-26 14:50:00 Test Item Value Reference Range Interpretation Comments EBV VCA IgG (test code = EBV VCA IgG) no gt [facility] BeevilleNiyxuilYFBNRBUENA6900-26-26 14:50:00 Test Item Value Reference Range Interpretation Comments Hep Bs Ab (test code = Hep Bs Ab) 5.2 [facility]evilleKnjbuvvGCSTNWCQEJ7272-19-79 14:50:00 Test Item Value Reference Range Interpretation Comments Hep B Core Ab (test Negative *NA*(04/06/18 code = Hep B Core Ab) 8:50 AM) [facility]evilleLdtjocqOSBQLIGBPH8695-09-89 14:50:00 Test Item Value Reference Range Interpretation Comments HIV Ag/Ab 4th Gen Negative *NA*(04/06/18 (test code = HIV 8:50 AM) Ag/Ab 4th Gen) [facility]evilleWobwmxpKCWSMQGGYS5803-76-87 14:50:00 Test Item Value Reference Range Interpretation [...] and concur with the resident's interpretation. CPT 33366-CT [facility] BeevilleTefjoxePFNWUODPUL6689-01-47 14:50:00 Test Item Value Reference Range Interpretation Comments KAREN Ser Pattern A distinct monoclonal (test code = KAREN Ser band is present in the Pattern) IgM izabella with a corresponding faint band in the kappa light chain izabella. The polyclonal gamma globulin background is preserved in all lanes. [facility] BeevilleDxgyuqiGJXUXDLATD1734-17-53 14:50:00 Test Item Value Reference Range Interpretation Comments CMV IgG (test code = Reactive *ABN*(04/06/18 CMV IgG) 8:50 AM) [facility]evilleNxegghoYHELIXXQVV7852-71-89 14:50:00 Test Item Value Reference Range Interpretation Comments CMV IgM (test code = CMV IgM) 0.3 [facility]WfjpsihSUFXOV6955-23-88 14:50:00 Test Item Value Reference Range Interpretation Comments VLDL (test code = VLDL) 36 1 [facility]woodGzaeaxbKVWZAE4375-50-62 14:50:00 Test Item Value Reference Range Interpretation Comments LDL (Calculated) (test code = LDL 132 (Calculated)) [facility] CenterOrviibdGNMQUQ4012-15-89 14:50:00 Test Item Value Reference Range Interpretation Comments Chol (test code = Chol) 199 [facility]woodNxmeksnMQGWWT8821-88-94 14:50:00 Test Item Value Reference Range Interpretation Comments Trig (test code = Trig) 182 [facility] CenterUhwnqajRDMFWK5246-60-78 14:50:00 Test Item Value Reference Range Interpretation Comments HDL (test code = HDL) 31 [facility]woodAhclrlpZHVOWN1946-62-62 14:50:00 Test Item Value Reference Range Interpretation Comments CHD Risk (test code = CHD Risk) 6.42 1 4.00-7.30 [facility]LEC[facility] SCNGATORBC0081-25-47 14:50:00 Test Item Value Reference Range Interpretation Comments HBV DNA Log10 (test code = HBV DNA no gt Log10) [facility] ADFRJHHFJJ8293-76-41 14:50:00 Test Item Value Reference Range Interpretation Comments Hep B PCR Qnt (test Not Detected (04/06/18 code = Hep B PCR Qnt) 8:50 AM) [facility]PARASITOLOGY - [id number] 14:50:00 Test Item Value Reference Range Interpretation Comments Strongyloides Antibodies (test code Negative = Strongyloides Antibodies) [facility]woodPARATHYROID [id number] 14:50:00 Test Item Value Reference Range Interpretation Comments PTH Intact (test code = PTH Intact) 180.7 18.4-80.1 [facility] JATZXDZWW0863-40-28 14:50:00 Test Item Value Reference Range Interpretation Comments Hgb A1C (test code = Hgb A1C) 6.5 [facility] FQZSHKFTI5867-39-42 14:50:00 Test Item Value Reference Range Interpretation Comments PSA (test code = PSA) 1.00 See_Comment [Auto mated message] The system which ge nerated this result transmit nicko reference range : <=4.00. The reference r carlos was not used to interpr et this result as adebayo l/abnormal. [facility] ZTFYKKOQT1184-36-37 14:50:00 Test Item Value Reference Range Interpretation Comments Nicotine Lvl (test code = None Detected Nicotine Lvl) [facility] HAZWZJYAK8935-02-50 14:50:00 Test Item Value Reference Range Interpretation Comments Cotinine Lvl (test code = None Detected Cotinine Lvl) [facility] [id number] 14:50:00 Test Item Value Reference Range Interpretation Comments UA Urobilinogen (test code = UA <=1.0 mg/dL 0.1-1.0 Urobilinogen) [facility] [id number] 14:50:00 Test Item Value Reference Range Interpretation Comments UA Sq Epi (test code = UA Sq Epi) None Seen [facility]SELECT [facility] [place] [facility] [id number] 14:50:00 Test Item Value Reference Range Interpretation Comments UA Turbidity (test code = Clear (04/06/18 8:50 UA Turbidity) AM) [facility] AND [id number] 14:50:00 Test Item Value Reference Range Interpretation Comments UA Color (test code = Yellow *NA*(04/06/18 8:50 UA Color) AM) [facility] AND [id number] 14:50:00 Test Item Value Reference Range Interpretation Comments UA pH (test code = UA pH) 5.5 1 5.0-8.0 [facility] AND [id number] 14:50:00 Test Item Value Reference Range Interpretation Comments UA Spec Grav (test code = UA Spec 1.009 1 Grav) [facility] AND [id number] 14:50:00 Test Item Value Reference Range Interpretation Comments UA WBC (test code = 1 See_Comment [Automa nicko message] The UA WBC) system which ge nerated this result transmit nicko reference range : <=5. The reference range was not used to interpr et this result as adebayo l/abnormal. [facility] AND [id number] 14:50:00 Test Item Value Reference Range Interpretation Comments UA Leuk Est (test Negative (04/06/18 8:50 code = UA Leuk Est) AM) [facility] AND [id number] 14:50:00 Test Item Value Reference Range Interpretation Comments UA Nitrite (test code Negative (04/06/18 8:50 = UA Nitrite) AM) [facility] AND [id number] 14:50:00 Test Item Value Reference Range Interpretation Comments UA Ketones (test code = UA Negative mg/dL Ketones) [facility] AND [id number] 14:50:00 Test Item Value Reference Range Interpretation Comments UA Glucose (test code = UA Negative mg/dL Glucose) [facility] AND [id number] 14:50:00 Test Item Value Reference Range Interpretation Comments UA Protein (test code = UA Protein) 100 mg/dL [facility] AND [id number] 14:50:00 Test Item Value Reference Range Interpretation Comments UA Blood (test code = Trace *ABN*(04/06/18 UA Blood) 8:50 AM) [facility] AND [id number] 14:50:00 Test Item Value Reference Range Interpretation Comments UA Bili (test code = Negative *NA*(04/06/18 UA Bili) 8:50 AM) [facility] [id number] 14:50:00 Test Item Value Reference Range Interpretation Comments U Microalb (test code = U Microalb) 638.0 [facility]2019-02-05 14:50:00 Test Item Value Reference Range Interpretation Comments U Protein (test code = U Protein) 117.7 [facility]2019-02-05 14:50:00 Test Item Value Reference Range Interpretation Comments U Prot/Creat (test code = U 0.78 1 Prot/Creat) [facility]2019-02-05 14:50:00 Test Item Value Reference Range Interpretation Comments U Creatinine (test code = U 151.00 Creatinine) [facility] [id number] 14:50:00 Test Item Value Reference Range Interpretation Comments Ferritin Lvl (test code = Ferritin Lvl) 213 22-[address] [facility] [id number] 14:50:00 Test Item Value Reference Range Interpretation Comments UIBC (test code = UIBC) 261 110-370 [facility]2019-02-05 14:50:00 Test Item Value Reference Range Interpretation Comments % Satur Fe (test code = % Satur Fe) 15 12-[address] [facility] [id number] 14:50:00 Test Item Value Reference Range Interpretation Comments Iron (test code = Iron) 46 45-[address] [facility] [id number] 14:50:00 Test Item Value Reference Range Interpretation Comments TIBC (test code = TIBC) 307 228-428 [facility] BANK [id number] 14:50:00 Test Item Value Reference Range Interpretation Comments OP ABORh Int (test code = OP ABORh Int) O POS [facility]CHE[facility] [id number] 14:50:00 Test Item Value Reference Range Interpretation Comments Vitamin D, 25-OH, Total (test code = 36.8 30.0-100.0 Vitamin D, 25-OH, Total) [facility] [id number] 14:50:00 Test Item Value Reference Range Interpretation Comments Uric Acid (test code = Uric Acid) 7.3 3.8-8.[address] [facility]2019-02-05 14:50:00 Test Item Value Reference Range Interpretation Comments Phosphorus (test code = Phosphorus) 3.4 2.5-4.[address] [facility]2019-02-05 14:50:00 Test Item Value Reference Range Interpretation Comments Magnesium Lvl (test code = Magnesium 2.0 1.8-2.4 Lvl) [facility]2019-02-05 14:50:00 Test Item Value Reference Range Interpretation Comments C-Peptide (test code = C-Peptide) 8.17 0.48-5.[address] [facility]2019-02-05 14:50:00 Test Item Value Reference Range Interpretation Comments A/G Ratio (test code = A/G Ratio) 0.9 1 0.7-1.6 [place] [id number] 14:50:00 Test Item Value Reference Range Interpretation Comments B/C Ratio (test code = B/C Ratio) 9 1 6-[address] [facility]2019-02-05 14:50:00 Test Item Value Reference Range Interpretation Comments AGAP (test code = AGAP) 12.4 10.0-20.[address] [facility]2019-02-05 14:50:00 Test Item Value Reference Range Interpretation Comments Globulin (test code = Globulin) 4.2 2.7-4.[address] [facility]2019-02-05 14:50:00 Test Item Value Reference Range Interpretation Comments eGFR (test code = eGFR) [address] [facility]2019-02-05 14:50:00 Test Item Value Reference Range Interpretation Comments ALT (test code = ALT) 12 See_Comment [Auto mated message] The system which ge nerated this result transmit nicko reference range : <=65. The reference range was not used to interpr et this result as adebayo l/abnormal. [facility]2019-02-05 14:50:00 Test Item Value Reference Range Interpretation Comments Alk Phos (test code = Alk Phos) 70 39-[address] [facility]2019-02-05 14:50:00 Test Item Value Reference Range Interpretation Comments AST (test code = AST) 8 See_Comment [Auto mated message] The system which ge nerated this result transmit nicko reference range : <=37. The reference range was not used to interpr et this result as adebayo l/abnormal. [facility] [id number] 14:50:00 Test Item Value Reference Range Interpretation Comments Albumin Lvl (test code = Albumin Lvl) 3.7 3.5-5.[address] [facility]2019-02-05 14:50:00 Test Item Value Reference Range Interpretation Comments Bili Total (test code = Bili Total) 0.3 0.2-1.[address] [facility]2019-02-05 14:50:00 Test Item Value Reference Range Interpretation Comments Glucose Lvl (test code = Glucose Lvl) 83 70-[address] [facility]2019-02-05 14:50:00 Test Item Value Reference Range Interpretation Comments Sodium Lvl (test code = Sodium Lvl) 137 135-[address] [facility]2019-02-05 14:50:00 Test Item Value Reference Range Interpretation Comments BUN (test code = BUN) 35 7-22 [facility] [id number] 14:50:00 Test Item Value Reference Range Interpretation Comments Creatinine Lvl (test code = Creatinine 4.10 0.50-1.40 Lvl) [facility]2019-02-05 14:50:00 Test Item Value Reference Range Interpretation Comments CO2 (test code = CO2) 25 24-[address] [facility]2019-02-05 14:50:00 Test Item Value Reference Range Interpretation Comments Calcium Lvl (test code = Calcium Lvl) 9.7 8.5-10.5 [facility] [id number] 14:50:00 Test Item Value Reference Range Interpretation Comments Potassium Lvl (test code = Potassium 4.4 3.5-5.1 Lvl) [facility] [id number] 14:50:00 Test Item Value Reference Range Interpretation Comments Chloride Lvl (test code = Chloride Lvl) 104 95-109 [facility] [id number] 14:50:00 Test Item Value Reference Range Interpretation Comments Total Protein (test code = Total 7.9 6.4-8.4 Protein) [facility] [id number] 14:50:00 Test Item Value Reference Range Interpretation Comments Opiate Qnt (test code = Opiate Qnt) Negative [facility] [id number] 14:50:00 Test Item Value Reference Range Interpretation Comments Phencyclidine Scr (test code = Negative Phencyclidine Scr) [facility] [id number] 14:50:00 Test Item Value Reference Range Interpretation Comments Kaitlin Scr (test code = Kaitlin Scr) Negative [facility] [id number] 14:50:00 Test Item Value Reference Range Interpretation Comments Methadone Scr (test code = Methadone Negative Scr) [facility] [id number] 14:50:00 Test Item Value Reference Range Interpretation Comments Cocaine Scr (test code = Cocaine Negative Scr) [facility] [id number] 14:50:00 Test Item Value Reference Range Interpretation Comments Cannab Scr (test code = Cannab Scr) Negative [facility] [id number] 14:50:00 Test Item Value Reference Range Interpretation Comments Amph Scr (test code = Amph Scr) Negative [facility] [id number] 14:50:00 Test Item Value Reference Range Interpretation Comments Opiate Scr (test code = Opiate Scr) Positive [facility] [id number] 14:50:00 Test Item Value Reference Range Interpretation Comments 6-Acetylmor Scr (test code = Negative 6-Acetylmor Scr) [facility] [id number] 14:50:00 Test Item Value Reference Range Interpretation Comments Benzodiaz Scr (test code = Benzodiaz Negative Scr) [facility]woodXikwhgbEREBAPRZUB4092-30-26 14:50:00 Test Item Value Reference Range Interpretation Comments Basophils # (test code 0.1 See_Comment [Aut omated message] The = Basophils #) system which generated this result tra nsmitted reference range : <=0.2. The reference r carlos was not used to int erpret this result as normal/abnormal . [facility] S[id number] 14:50:00 Test Item Value Reference Range Interpretation Comments Segs (test code = Segs) 68.2 45.0-75.0 [facility] SystemKmqgcupYPIZSVDTBC3909-95-11 14:50:00 Test Item Value Reference Range Interpretation Comments Lymphocytes (test code = Lymphocytes) 20.5 20.0-40.0 [facility]GllnjifNYYIEAGHSI0431-48-83 14:50:00 Test Item Value Reference Range Interpretation Comments Neutrophils # (test code = Neutrophils 6.0 1.5-8.1 #) [facility]Xvul[facility]tzXRKQQYIRGM6151-12-47 14:50:00 Test Item Value Reference Range Interpretation Comments Basophils (test code = 0.6 See_Comment [Aut omated message] The Basophils) system which ge nerated this result tra nsmitted reference range : <=1.0. The reference r carlos was not used to int erpret this result as normal/abnormal . [facility] HospitalMwjhkobYYXEJRTBUL7998-04-84 14:50:00 Test Item Value Reference Range Interpretation Comments Lymphocytes # (test code = Lymphocytes 1.8 1.0-5.5 #) [facility] HospitalBnmpyogPWQGHUVSAY5689-09-64 14:50:00 Test Item Value Reference Range Interpretation Comments Eosinophils (test code = 3.2 See_Comment [A utomated message] The Eosinophils) system which ge nerated this result tra nsmitted reference range : <=4.0. The reference r carlos was not used to int erpret this result as normal/abnormal . [facility] HospitalBqwlaniQAOVRJAIYR2826-45-30 14:50:00 Test Item Value Reference Range Interpretation Comments Monocytes (test code = Monocytes) 7.5 2.0-12.0 [facility] HospitalVsuikqeODIEQQLOCH9282-00-73 14:50:00 Test Item Value Reference Range Interpretation Comments Eosinophils # (test code 0.3 See_Comment [A utomated message] The = Eosinophils #) system whic h generated this result tra nsmitted reference range : <=0.5. The reference r carlos was not used to int erpret this result as normal/abnormal . [facility] HospitalOpzqufgAOAYTCERXN1789-18-21 14:50:00 Test Item Value Reference Range Interpretation Comments Monocytes # (test code 0.7 See_Comment [Aut omated message] The = Monocytes #) system which generated this result tra nsmitted reference range : <=0.8. The reference r carlos was not used to int erpret this result as normal/abnormal . [facility] HospitalPzquvegDBZMYRHERO5922-83-56 14:50:00 Test Item Value Reference Range Interpretation Comments Hgb (test code = Hgb) 13.3 14.0-18.0 [facility] HospitalBhievluGHJGOJWWXD3535-19-60 14:50:00 Test Item Value Reference Range Interpretation Comments Hct (test code = Hct) 41.1 42.0-54.0 [facility] HospitalGdajksoTMNTMBJQMB8032-14-37 14:50:00 Test Item Value Reference Range Interpretation Comments MCV (test code = MCV) 88.4 80.0-94.0 [facility] HospitalNnjayzyPFJLKTIPWW9259-45-05 14:50:00 Test Item Value Reference Range Interpretation Comments MCH (test code = MCH) 28.7 pg 27.0-31.0 [facility] HospitalQjkxljfMNNLABYADE8945-70-64 14:50:00 Test Item Value Reference Range Interpretation Comments RBC (test code = RBC) 4.65 4.70-6.10 [facility] HospitalDkxcfoqSIHNYDSNSE2222-23-55 14:50:00 Test Item Value Reference Range Interpretation Comments RDW (test code = RDW) 14.6 11.5-14.5 [facility] HospitalJfrgpgcYLAQIYOHRM9624-00-50 14:50:00 Test Item Value Reference Range Interpretation Comments MCHC (test code = MCHC) 32.5 32.0-36.0 [facility] HospitalZfheefsVCRARCXKEK5627-49-86 14:50:00 Test Item Value Reference Range Interpretation Comments Platelet (test code = Platelet) 238 133-450 [facility] HospitalGdiqrjzPVFCABXKRC5792-21-92 14:50:00 Test Item Value Reference Range Interpretation Comments MPV (test code = MPV) 9.0 7.4-10.4 [facility] HospitalVlteoykGPDOPLXCNZ2989-69-81 14:50:00 Test Item Value Reference Range Interpretation Comments WBC (test code = WBC) 8.8 3.7-10.4 [facility] HospitalBgtaqhlCKRIVKVSGT6401-62-45 14:50:00 Test Item Value Reference Range Interpretation Comments INR (test code = INR) 0.96 1 0.85-1.17 [facility] HospitalEuehsloNOSCCHXVNC6335-22-43 14:50:00 Test Item Value Reference Range Interpretation Comments PT (test code = PT) 12.6 s 12.0-14.7 [facility] HospitalMhppqocMEYPXGWNNR5119-34-00 14:50:00 Test Item Value Reference Range Interpretation Comments PTT (test code = PTT) 34.7 s 22.9-35.8 [facility]woodGxzxwvkVIWDDGOELJ5606-82-27 14:50:00 Test Item Value Reference Range Interpretation Comments Treponemal Ab (test code Non-Reactive = Treponemal Ab) *NA*(04/06/18 8:50 AM) [facility]HsohmozCPKKVIVGNK3194-03-08 14:50:00 Test Item Value Reference Range Interpretation Comments Varicella IgM (test no gt See_Comment [Automa nicko message] The code = Varicella IgM) system which generated this result tra nsmitted reference range : <=0.90. The reference r carlos was not used to int erpret this result as normal/abnormal . [facility]evilleAfsnknwBVIVVMYTHZ0860-71-23 14:50:00 Test Item Value Reference Range Interpretation Comments Varicella IgG (test code = Varicella no gt IgG) [facility]evilleNbulzurGPKMUAZOJJ5546-29-71 14:50:00 Test Item Value Reference Range Interpretation Comments Hep Bs Ag (test code Negative *NA*(04/06/18 = Hep Bs Ag) 8:50 AM) [facility]evilleTcabqpiCJLRTPUZML6758-61-44 14:50:00 Test Item Value Reference Range Interpretation Comments HSV 1 IgG (test code = HSV 1 IgG) no gt [facility]evilleWnwnicmLNLCKJZIKE5689-37-24 14:50:00 Test Item Value Reference Range Interpretation Comments HSV 2 IgG (test code = HSV 2 IgG) no gt [facility]evilleEzepypsOAMTZWMGAV1276-58-86 14:50:00 Test Item Value Reference Range Interpretation Comments Lambda Free Light Chains (test code = 66.41 5.70-26.30 Lambda Free Light Chains) [facility]evilleRjtkygvUNTQWGGCLD9531-08-41 14:50:00 Test Item Value Reference Range Interpretation Comments [place]/Lambda Free Light Chains Ratio 1.66 0.26-1.65 (test code = [place]/Lambda Free Light Chains Ratio) [facility]evilleZhaitpcIVGZBVRODU8312-93-39 14:50:00 Test Item Value Reference Range Interpretation Comments [place] Free Light Chains (test code = 110.34 3.30-19.40 [place] Free Light Chains) [facility]evilleNhgmgbhFFHMRDTGQA9864-32-44 14:50:00 Test Item Value Reference Range Interpretation Comments Hep C Ab (test code = Negative *NA*(04/06/18 Hep C Ab) 8:50 AM) [facility]evilleAyfhcfjXAVLGKCJXD3143-27-55 14:50:00 Test Item Value Reference Range Interpretation Comments T-Spot.TB (test code Negative (04/06/18 8:50 = T-Spot.TB) AM) [facility]evilleYiofrfmDXPXAESOPT5589-58-77 14:50:00 Test Item Value Reference Range Interpretation [...] and concur with the resident's interpretation. CPT 38687-SJ [facility]XmulupwSLBOUNDKDH1350-88-11 14:50:00 Test Item Value Reference Range Interpretation Comments Beta Glob (test code = Beta Glob) 0.99 0.50-1.15 [facility]evilleBjeybffJPZPOPCYXY1451-30-29 14:50:00 Test Item Value Reference Range Interpretation Comments Gamma Glob (test code = Gamma Glob) 1.28 0.71-1.57 [facility]evilleMbnmyeqQCAGYQPAXK3062-07-99 14:50:00 Test Item Value Reference Range Interpretation Comments Tot Prot (SPE) (test code = Tot Prot 7.9 6.4-8.4 (SPE)) [facility]evilleErvmibhJQTEDCDHCJ8610-21-59 14:50:00 Test Item Value Reference Range Interpretation Comments Albumin (SPE) (test code = Albumin 4.25 3.57-5.55 (SPE)) [facility]evilleIcdhxogPTIUPWCMDX2635-98-56 14:50:00 Test Item Value Reference Range Interpretation Comments Gamma % (test code = Gamma %) 16.2 11.1-18.7 [facility]woodLmvhkilCAJWWBALOE0680-20-25 14:50:00 Test Item Value Reference Range Interpretation Comments Alpha 1 Glob (test code = Alpha 1 Glob) 0.43 0.18-0.41 [facility]woodXgkwgwrUPXXIYIOPC1465-90-69 14:50:00 Test Item Value Reference Range Interpretation Comments Alpha 2 Glob (test code = Alpha 2 Glob) 0.96 0.45-1.00 [facility]woodUtvzsycJHZVMZNDGG4880-46-28 14:50:00 Test Item Value Reference Range Interpretation Comments Alpha 1 % (test code = Alpha 1 %) 5.4 2.8-4.9 [facility]evilleTqyzjwuZSCJZQKXHO2988-58-88 14:50:00 Test Item Value Reference Range Interpretation Comments Albumin % (test code = Albumin %) 53.8 55.8-66.1 [facility]evilleKpyoimvOVQBSPNREJ6765-95-80 14:50:00 Test Item Value Reference Range Interpretation Comments Beta % (test code = Beta %) 12.5 7.8-13.7 [facility]evilleQmlnegqLOETRXAQPI4528-20-35 14:50:00 Test Item Value Reference Range Interpretation Comments Alpha 2 % (test code = Alpha 2 %) 12.1 7.0-11.9 [facility]evilleRfsyqybVMZSVDEJUR2713-61-28 14:50:00 Test Item Value Reference Range Interpretation Comments EBV VCA IgM (test code = EBV VCA IgM) no gt [facility]evilleHbkhjxsSFAXVDSHJR6508-71-22 14:50:00 Test Item Value Reference Range Interpretation Comments EBV VCA IgG (test code = EBV VCA IgG) no gt [facility]evilleDetilhzZPOJNWMPUQ4677-48-64 14:50:00 Test Item Value Reference Range Interpretation Comments Hep Bs Ab (test code = Hep Bs Ab) 5.2 [facility]evilleDjojafoDTGDNTDCEH9588-49-43 14:50:00 Test Item Value Reference Range Interpretation Comments Hep B Core Ab (test Negative *NA*(04/06/18 code = Hep B Core Ab) 8:50 AM) [facility]evilleTieprzfFDKRLQGLFD4308-02-82 14:50:00 Test Item Value Reference Range Interpretation Comments HIV Ag/Ab 4th Gen Negative *NA*(04/06/18 (test code = HIV 8:50 AM) Ag/Ab 4th Gen) [facility]evilleAdnoglaFKRHMENCPJ3651-60-45 14:50:00 Test Item Value Reference Range Interpretation [...] and concur with the resident's interpretation. CPT 94334-KU [facility]evilleYulpeidEPOOLYDOWL1798-32-11 14:50:00 Test Item Value Reference Range Interpretation Comments KAREN Ser Pattern A distinct monoclonal (test code = KAREN Ser band is present in the Pattern) IgM izabella with a corresponding faint band in the kappa light chain izabella. The polyclonal gamma globulin background is preserved in all lanes. [facility]MafnqqjDVPKGVLQIR3230-44-53 14:50:00 Test Item Value Reference Range Interpretation Comments CMV IgG (test code = Reactive *ABN*(04/06/18 CMV IgG) 8:50 AM) [facility] PasoFdhjjyfHQEJUJFROP8796-63-42 14:50:00 Test Item Value Reference Range Interpretation Comments CMV IgM (test code = CMV IgM) 0.3 [facility] PasoWtfwyvnWCRQRR7571-32-31 14:50:00 Test Item Value Reference Range Interpretation Comments VLDL (test code = VLDL) 36 1 [facility] PasoJuzetriCDORLG4953-44-87 14:50:00 Test Item Value Reference Range Interpretation Comments LDL (Calculated) (test code = LDL 132 (Calculated)) [facility] PasoHineascWFRWQM4951-76-29 14:50:00 Test Item Value Reference Range Interpretation Comments Chol (test code = Chol) 199 [facility] PasoEyinbzaGAKPIR1849-89-24 14:50:00 Test Item Value Reference Range Interpretation Comments Trig (test code = Trig) 182 [facility] PasoZfkcaduFQRIPR8005-58-88 14:50:00 Test Item Value Reference Range Interpretation Comments HDL (test code = HDL) 31 [facility] PasoJavuccwZRESGS3282-96-61 14:50:00 Test Item Value Reference Range Interpretation Comments CHD Risk (test code = CHD Risk) 6.42 1 4.00-7.30 [facility]annMOLECULAR UPYJTLUCCE2312-54-05 14:50:00 Test Item Value Reference Range Interpretation Comments HBV DNA Log10 (test code = HBV DNA no gt Log10) [facility] BCFEVRLVOG5771-34-21 14:50:00 Test Item Value Reference Range Interpretation Comments Hep B PCR Qnt (test Not Detected (04/06/18 code = Hep B PCR Qnt) 8:50 AM) [facility]annPARASITOLOGY - [id number] 14:50:00 Test Item Value Reference Range Interpretation Comments Strongyloides Antibodies (test code Negative = Strongyloides Antibodies) [facility]annPARATHYROID VCNTVUZ7172-26-11 14:50:00 Test Item Value Reference Range Interpretation Comments PTH Intact (test code = PTH Intact) 180.7 18.4-80.1 [facility]SPE[facility] FRZRGMDLI6997-78-40 14:50:00 Test Item Value Reference Range Interpretation Comments Hgb A1C (test code = Hgb A1C) 6.5 [facility] ONOAWCCEW2867-67-53 14:50:00 Test Item Value Reference Range Interpretation Comments PSA (test code = PSA) 1.00 See_Comment [Auto mated message] The system which ge nerated this result transmit nicko reference range : <=4.00. The reference r carlos was not used to interpr et this result as adebayo l/abnormal. [facility] SUROZGZTN0634-55-29 14:50:00 Test Item Value Reference Range Interpretation Comments Nicotine Lvl (test code = None Detected Nicotine Lvl) [facility] JMGVXQUGL2999-17-09 14:50:00 Test Item Value Reference Range Interpretation Comments Cotinine Lvl (test code = None Detected Cotinine Lvl) [facility] AND [id number] 14:50:00 Test Item Value Reference Range Interpretation Comments UA Urobilinogen (test code = UA <=1.0 mg/dL 0.1-1.0 Urobilinogen) [facility] AND [id number] 14:50:00 Test Item Value Reference Range Interpretation Comments UA Sq Epi (test code = UA Sq Epi) None Seen [facility] AND [id number] 14:50:00 Test Item Value Reference Range Interpretation Comments UA Turbidity (test code = Clear (04/06/18 8:50 UA Turbidity) AM) [facility] AND [id number] 14:50:00 Test Item Value Reference Range Interpretation Comments UA Color (test code = Yellow *NA*(04/06/18 8:50 UA Color) AM) [facility] AND [id number] 14:50:00 Test Item Value Reference Range Interpretation Comments UA pH (test code = UA pH) 5.5 1 5.0-8.0 [facility] AND [id number] 14:50:00 Test Item Value Reference Range Interpretation Comments UA Spec Grav (test code = UA Spec 1.009 1 Grav) [facility] AND [id number] 14:50:00 Test Item Value Reference Range Interpretation Comments UA WBC (test code = 1 See_Comment [Automa nicko message] The UA WBC) system which ge nerated this result transmit nicko reference range : <=5. The reference range was not used to interpr et this result as adebayo l/abnormal. [facility] AND [id number] 14:50:00 Test Item Value Reference Range Interpretation Comments UA Leuk Est (test Negative (04/06/18 8:50 code = UA Leuk Est) AM) [facility] AND [id number] 14:50:00 Test Item Value Reference Range Interpretation Comments UA Nitrite (test code Negative (04/06/18 8:50 = UA Nitrite) AM) [facility] AND [id number] 14:50:00 Test Item Value Reference Range Interpretation Comments UA Ketones (test code = UA Negative mg/dL Ketones) [facility] AND [id number] 14:50:00 Test Item Value Reference Range Interpretation Comments UA Glucose (test code = UA Negative mg/dL Glucose) [facility] AND [id number] 14:50:00 Test Item Value Reference Range Interpretation Comments UA Protein (test code = UA Protein) 100 mg/dL [facility] AND [id number] 14:50:00 Test Item Value Reference Range Interpretation Comments UA Blood (test code = Trace *ABN*(04/06/18 UA Blood) 8:50 AM) [facility] AND [id number] 14:50:00 Test Item Value Reference Range Interpretation Comments UA Bili (test code = Negative *NA*(04/06/18 UA Bili) 8:50 AM) [facility]2019-02-05 14:50:00 Test Item Value Reference Range Interpretation Comments U Microalb (test code = U Microalb) 638.0 [facility]2019-02-05 14:50:00 Test Item Value Reference Range Interpretation Comments U Protein (test code = U Protein) 117.7 [facility]2019-02-05 14:50:00 Test Item Value Reference Range Interpretation Comments U Prot/Creat (test code = U 0.78 1 Prot/Creat) [facility]2019-02-05 14:50:00 Test Item Value Reference Range Interpretation Comments U Creatinine (test code = U 151.00 Creatinine) [facility] AND [id number] 16:40:00 Test Item Value Reference Range Interpretation Comments UA Urobilinogen (test code = UA 0.2 0.1-1.0 Urobilinogen) [facility] AND [id number] 16:40:00 Test Item Value Reference Range Interpretation Comments UA Nitrite (test code Negative (11/03/16 11:40 = UA Nitrite) AM) [facility] AND [id number] 16:40:00 Test Item Value Reference Range Interpretation Comments UA Leuk Est (test Negative (11/03/16 11:40 code = UA Leuk Est) AM) [facility] AND [id number] 16:40:00 Test Item Value Reference Range Interpretation Comments UA pH (test code = UA pH) 5.5 1 5.0-8.0 [facility] AND [id number] 16:40:00 Test Item Value Reference Range Interpretation Comments UA Protein (test code = UA Protein) 100 mg/dL [facility] AND [id number] 16:40:00 Test Item Value Reference Range Interpretation Comments UA Glucose (test code Negative (11/03/16 11:40 = UA Glucose) AM) [facility] AND [id number] 16:40:00 Test Item Value Reference Range Interpretation Comments UA Blood (test code = Moderate *ABN*(11/03/16 UA Blood) 11:40 AM) [facility] AND [id number] 16:40:00 Test Item Value Reference Range Interpretation Comments UA Ketones (test code Negative *NA*(11/03/16 = UA Ketones) 11:40 AM) [facility] AND [id number] 16:40:00 Test Item Value Reference Range Interpretation Comments UA Bili (test code = Negative *NA*(11/03/16 UA Bili) 11:40 AM) [facility] AND [id number] 16:40:00 Test Item Value Reference Range Interpretation Comments UA Color (test code = Yellow *NA*(11/03/16 UA Color) 11:40 AM) [facility] AND [id number] 16:40:00 Test Item Value Reference Range Interpretation Comments UA Spec Grav (test code = UA Spec 1.020 1 Grav) [facility] AND [id number] 16:40:00 Test Item Value Reference Range Interpretation Comments UA Turbidity (test code = Clear (11/03/16 11:40 UA Turbidity) AM) [facility] AND [id number] 16:40:00 Test Item Value Reference Range Interpretation Comments UA Sq Epi (test code = UA Sq Epi) Rare /LPF [facility] AND [id number] 16:40:00 Test Item Value Reference Range Interpretation Comments UA Bacteria (test code = UA Occasional /HPF Bacteria) [facility] AND [id number] 16:40:00 Test Item Value Reference Range Interpretation Comments UA WBC (test code = UA WBC) 0-2 /HPF [facility] AND [id number] 16:40:00 Test Item Value Reference Range Interpretation Comments UA RBC (test code = 0-2 /HPF See_Comment [Automa nicko message] The UA RBC) system which ge nerated this result tra nsmitted reference range : <=2. The reference range was not used to interpr et this result as adebayo l/abnormal. [facility] AND [id number] 16:40:00 Test Item Value Reference Range Interpretation Comments UA Hyal Cast 0-2 (11/03/16 See_Comment [Automated mes karon] (test code = UA 11:40 AM) The system w hich Hyal Cast) generated this result transmitted ref erence range: <=2. The reference range was not used to int erpret this result as normal/abnormal . [facility] AND [id number] 16:40:00 Test Item Value Reference Range Interpretation Comments UA Urobilinogen (test code = UA 0.2 0.1-1.0 Urobilinogen) [facility] AND [id number] 16:40:00 Test Item Value Reference Range Interpretation Comments UA Nitrite (test code Negative (11/03/16 11:40 = UA Nitrite) AM) [facility] AND [id number] 16:40:00 Test Item Value Reference Range Interpretation Comments UA Leuk Est (test Negative (11/03/16 11:40 code = UA Leuk Est) AM) [facility] AND [id number] 16:40:00 Test Item Value Reference Range Interpretation Comments UA pH (test code = UA pH) 5.5 1 5.0-8.0 [facility] AND [id number] 16:40:00 Test Item Value Reference Range Interpretation Comments UA Protein (test code = UA Protein) 100 mg/dL [facility] AND [id number] 16:40:00 Test Item Value Reference Range Interpretation Comments UA Glucose (test code Negative (11/03/16 11:40 = UA Glucose) AM) [facility] AND [id number] 16:40:00 Test Item Value Reference Range Interpretation Comments UA Blood (test code = Moderate *ABN*(11/03/16 UA Blood) 11:40 AM) [facility] AND [id number] 16:40:00 Test Item Value Reference Range Interpretation Comments UA Ketones (test code Negative *NA*(11/03/16 = UA Ketones) 11:40 AM) [facility] AND [id number] 16:40:00 Test Item Value Reference Range Interpretation Comments UA Bili (test code = Negative *NA*(11/03/16 UA Bili) 11:40 AM) [facility] AND [id number] 16:40:00 Test Item Value Reference Range Interpretation Comments UA Color (test code = Yellow *NA*(11/03/16 UA Color) 11:40 AM) [facility] AND [id number] 16:40:00 Test Item Value Reference Range Interpretation Comments UA Spec Grav (test code = UA Spec 1.020 1 Grav) [facility] AND [id number] 16:40:00 Test Item Value Reference Range Interpretation Comments UA Turbidity (test code = Clear (11/03/16 11:40 UA Turbidity) AM) [facility] AND [id number] 16:40:00 Test Item Value Reference Range Interpretation Comments UA Sq Epi (test code = UA Sq Epi) Rare /LPF [facility] AND [id number] 16:40:00 Test Item Value Reference Range Interpretation Comments UA Bacteria (test code = UA Occasional /HPF Bacteria) [facility] AND [id number] 16:40:00 Test Item Value Reference Range Interpretation Comments UA WBC (test code = UA WBC) 0-2 /HPF [facility] AND [id number] 16:40:00 Test Item Value Reference Range Interpretation Comments UA RBC (test code = 0-2 /HPF See_Comment [Automa nicko message] The UA RBC) system which ge nerated this result tra nsmitted reference range : <=2. The reference range was not used to interpr et this result as adebayo l/abnormal. [facility] [id number] 16:40:00 Test Item Value Reference Range Interpretation Comments UA Hyal Cast 0-2 (11/03/16 See_Comment [Automated mes karon] (test code = UA 11:40 AM) The system w hich Hyal Cast) generated this result transmitted ref erence range: <=2. The reference range was not used to int erpret this result as normal/abnormal . [facility] [id number] 16:40:00 Test Item Value Reference Range Interpretation Comments UA Color (test code = Yellow *NA*(11/03/16 UA Color) 11:40 AM) [facility] [id number] 16:40:00 Test Item Value Reference Range Interpretation Comments UA Spec Grav (test code = UA Spec 1.020 1 Grav) [facility] [id number] 16:40:00 Test Item Value Reference Range Interpretation Comments UA Turbidity (test code = Clear (11/03/16 11:40 UA Turbidity) AM) [facility] [id number] 16:40:00 Test Item Value Reference Range Interpretation Comments UA Sq Epi (test code = UA Sq Epi) Rare /LPF [facility] [id number] 16:40:00 Test Item Value Reference Range Interpretation Comments UA Bacteria (test code = UA Occasional /HPF Bacteria) [facility] [id number] 16:40:00 Test Item Value Reference Range Interpretation Comments UA WBC (test code = UA WBC) 0-2 /HPF [facility] [id number] 16:40:00 Test Item Value Reference Range Interpretation Comments UA RBC (test code = 0-2 /HPF See_Comment [Automa nicko message] The UA RBC) system which ge nerated this result tra nsmitted reference range : <=2. The reference range was not used to interpr et this result as daebayo l/abnormal. [facility] [id number] 16:40:00 Test Item Value Reference Range Interpretation Comments UA Hyal Cast 0-2 (11/03/16 See_Comment [Automated mes karon] (test code = UA 11:40 AM) The system w [facility] Hyal Cast) generated this result transmitted ref erence range: <=2. The reference range was not used to int erpret this result as normal/abnormal . [facility] AND [id number] 16:40:00 Test Item Value Reference Range Interpretation Comments UA Urobilinogen (test code = UA 0.2 0.1-1.0 Urobilinogen) [facility] AND [id number] 16:40:00 Test Item Value Reference Range Interpretation Comments UA Nitrite (test code Negative (11/03/16 11:40 = UA Nitrite) AM) [facility] AND [id number] 16:40:00 Test Item Value Reference Range Interpretation Comments UA Leuk Est (test Negative (11/03/16 11:40 code = UA Leuk Est) AM) [facility] AND [id number] 16:40:00 Test Item Value Reference Range Interpretation Comments UA pH (test code = UA pH) 5.5 1 5.0-8.0 [facility] AND [id number] 16:40:00 Test Item Value Reference Range Interpretation Comments UA Protein (test code = UA Protein) 100 mg/dL [facility] AND [id number] 16:40:00 Test Item Value Reference Range Interpretation Comments UA Glucose (test code Negative (11/03/16 11:40 = UA Glucose) AM) [facility] AND [id number] 16:40:00 Test Item Value Reference Range Interpretation Comments UA Blood (test code = Moderate *ABN*(11/03/16 UA Blood) 11:40 AM) [facility] [id number] 16:40:00 Test Item Value Reference Range Interpretation Comments UA Ketones (test code Negative *NA*(11/03/16 = UA Ketones) 11:40 AM) [facility] [id number] 16:40:00 Test Item Value Reference Range Interpretation Comments UA Bili (test code = Negative *NA*(11/03/16 UA Bili) 11:40 AM) [facility] [id number] 15:41:00 Test Item Value Reference Range Interpretation Comments Troponin-I (test code no gt See_Comment [Auto mated message] The = Troponin-I) system which g enerated this result transmit nicko reference range : <=0.40. The reference r carlos was not used to interpr et this result as adebayo l/abnormal. [facility]2017-09-04 15:41:00 Test Item Value Reference Range Interpretation Comments Magnesium Lvl (test code = Magnesium 1.5 1.8-2.4 Lvl) [facility]2017-09-04 15:41:00 Test Item Value Reference Range Interpretation Comments Phosphorus (test code = Phosphorus) 2.0 2.5-4.[address] [facility]2017-09-04 15:41:00 Test Item Value Reference Range Interpretation Comments eGFR (test code = eGFR) [address] [facility]2017-09-04 15:41:00 Test Item Value Reference Range Interpretation Comments ASPARTATE TRANSAMINASE 11 See_Comment [Aut omated message] (test code = ASPARTATE The s ystem which TRANSAMINASE) generated this result transmitted ref erence range: <=37. Th e reference range was not used to interpr et this result as normal/abnormal . [facility]2017-09-04 15:41:00 Test Item Value Reference Range Interpretation Comments Bili Total (test code = Bili Total) 0.5 0.2-1.[address] [facility]2017-09-04 15:41:00 Test Item Value Reference Range Interpretation Comments Total Protein (test code = Total 8.3 6.4-8.4 Protein) [facility]2017-09-04 15:41:00 Test Item Value Reference Range Interpretation Comments CO2 (test code = CO2) 22 24-[address] [facility]2017-09-04 15:41:00 Test Item Value Reference Range Interpretation Comments Calcium Lvl (test code = Calcium Lvl) 8.7 8.5-10.[address] [facility]2017-09-04 15:41:00 Test Item Value Reference Range Interpretation Comments Potassium Lvl (test code = Potassium 3.9 3.5-5.1 Lvl) [facility]2017-09-04 15:41:00 Test Item Value Reference Range Interpretation Comments Chloride Lvl (test code = Chloride Lvl) 108 95-[address] [facility]2017-09-04 15:41:00 Test Item Value Reference Range Interpretation Comments Creatinine Lvl (test code = Creatinine 2.82 0.50-1.40 Lvl) [facility]2017-09-04 15:41:00 Test Item Value Reference Range Interpretation Comments Sodium Lvl (test code = Sodium Lvl) 139 135-[address] [facility]2017-09-04 15:41:00 Test Item Value Reference Range Interpretation Comments BUN (test code = BUN) 30 7-[address] [facility]2017-09-04 15:41:00 Test Item Value Reference Range Interpretation Comments Glucose Lvl (test code = Glucose Lvl) 137 70-[address] [facility]2017-09-04 15:41:00 Test Item Value Reference Range Interpretation Comments Albumin Lvl (test code = Albumin Lvl) 3.6 3.5-5.[address] [facility]2017-09-04 15:41:00 Test Item Value Reference Range Interpretation Comments Alk Phos (test code = Alk Phos) 73 39-[address] [facility]2017-09-04 15:41:00 Test Item Value Reference Range Interpretation Comments ALANINE AMINOTRANSFERASE 16 See_Comment [A utomated message] (test code = ALANINE The sys tem which AMINOTRANSFERASE) generated this result transmitted ref erence range: <=65. Th e reference range was not used to int erpret this result as normal/abnormal . [facility]2017-09-04 15:41:00 Test Item Value Reference Range Interpretation Comments A/G Ratio (test code = A/G Ratio) 0.8 0.7-1.[address] [facility]2017-09-04 15:41:00 Test Item Value Reference Range Interpretation Comments B/C Ratio (test code = B/C Ratio) 11 6-[address] [facility]2017-09-04 15:41:00 Test Item Value Reference Range Interpretation Comments Globulin (test code = Globulin) 4.7 2.7-4.[address] [facility]2017-09-04 15:41:00 Test Item Value Reference Range Interpretation Comments AGAP (test code = AGAP) 12.9 10.0-20.[address] [facility]2017-09-04 15:41:00 Test Item Value Reference Range Interpretation Comments Lipase Lvl (test code = Lipase Lvl) 144 [address] [facility]vpnufrVBNJITDAIL5430-02-83 15:41:00 Test Item Value Reference Range Interpretation Comments Segs (test code = Segs) 75.6 45.0-75.0 [facility] HospitalTaxgtpzQFLBDIYHZZ6057-96-39 15:41:00 Test Item Value Reference Range Interpretation Comments Basophils # (test code 0.1 See_Comment [Aut omated message] The = Basophils #) system which generated this result tra nsmitted reference range : <=0.2. The reference r carlos was not used to int erpret this result as normal/abnormal . [facility] Hos[id number] 15:41:00 Test Item Value Reference Range Interpretation Comments Monocytes # (test code 0.9 See_Comment [Aut omated message] The = Monocytes #) system which generated this result tra nsmitted reference range : <=0.8. The reference r carlos was not used to int erpret this result as normal/abnormal . [facility] HospitalCkpceeeSSQKUELNYO0912-19-15 15:41:00 Test Item Value Reference Range Interpretation Comments Eosinophils # (test code 0.2 See_Comment [A utomated message] The = Eosinophils #) system whic h generated this result tra nsmitted reference range : <=0.5. The reference r carlos was not used to int erpret this result as normal/abnormal . [facility] H[id number] 15:41:00 Test Item Value Reference Range Interpretation Comments Eosinophils (test code = 1.8 See_Comment [A utomated message] The Eosinophils) system which ge nerated this result tra nsmitted reference range : <=4.0. The reference r carlos was not used to int erpret this result as normal/abnormal . [facility] Ho[id number] 15:41:00 Test Item Value Reference Range Interpretation Comments Basophils (test code = 0.6 See_Comment [Aut omated message] The Basophils) system which ge nerated this result tra nsmitted reference range : <=1.0. The reference r carlos was not used to int erpret this result as normal/abnormal . [facility] Hospit[id number] 15:41:00 Test Item Value Reference Range Interpretation Comments Lymphocytes (test code = Lymphocytes) 14.5 20.0-40.0 [facility] HospitalBcrjbjuSREZIZOAWJ5586-36-12 15:41:00 Test Item Value Reference Range Interpretation Comments Monocytes (test code = Monocytes) 7.5 2.0-12.0 [facility] HospitalBpuywadAOWVXMSRFS6889-30-84 15:41:00 Test Item Value Reference Range Interpretation Comments Segs-Bands # (test code = Segs-Bands #) 9.4 1.5-8.1 [facility] HospitalYewkijnCPAFHKPERV3125-93-00 15:41:00 Test Item Value Reference Range Interpretation Comments Lymphocytes # (test code = Lymphocytes 1.8 1.0-5.5 #) [facility] HospitalOkkkmbwTBYYVNMYQP5635-52-30 15:41:00 Test Item Value Reference Range Interpretation Comments MCV (test code = MCV) 88.5 80.0-94.0 [facility] HospitalLivtpwoROBZASXTXG0537-45-38 15:41:00 Test Item Value Reference Range Interpretation Comments MCH (test code = MCH) 29.3 pg 27.0-31.0 [facility] HospitalRfazkvwHYKZCKYYKL4672-29-19 15:41:00 Test Item Value Reference Range Interpretation Comments Hct (test code = Hct) 40.7 42.0-54.0 [facility] HospitalMzkrgouUQPBCVQKOH3035-30-86 15:41:00 Test Item Value Reference Range Interpretation Comments MCHC (test code = MCHC) 33.2 32.0-36.0 [facility] HospitalDyuqwrxIDEVCTWGXY6645-76-19 15:41:00 Test Item Value Reference Range Interpretation Comments RDW (test code = RDW) 15.1 11.5-14.5 [facility] HospitalAoxvbysPNIFRIMROI4790-35-19 15:41:00 Test Item Value Reference Range Interpretation Comments Hgb (test code = Hgb) 13.5 14.0-18.0 [facility] HospitalAlaxzavHQNQALHHWY6829-90-72 15:41:00 Test Item Value Reference Range Interpretation Comments WBC X 10x3 (test code = WBC X 10x3) 12.5 3.7-10.4 [facility] HospitalVhmpvyjNCVGQFKVVB9164-47-53 15:41:00 Test Item Value Reference Range Interpretation Comments RBC X 10x6 (test code = RBC X 10x6) 4.60 4.70-6.10 [facility] HospitalNycnitrZBZFTBXLRC0781-38-61 15:41:00 Test Item Value Reference Range Interpretation Comments MPV (test code = MPV) 8.7 7.4-10.4 [facility]BpmzoexCRBEHLPCVZ7468-01-41 15:41:00 Test Item Value Reference Range Interpretation Comments Platelet (test code = Platelet) 278 133-450 [facility] [id number] 15:41:00 Test Item Value Reference Range Interpretation Comments Troponin-I (test code no gt See_Comment [Auto mated message] The = Troponin-I) system which g enerated this result transmit nicko reference range : <=0.40. The reference r carlos was not used to interpr et this result as adebayo l/abnormal. [facility] [id number] 15:41:00 Test Item Value Reference Range Interpretation Comments Magnesium Lvl (test code = Magnesium 1.5 1.8-2.4 Lvl) [facility] [id number] 15:41:00 Test Item Value Reference Range Interpretation Comments Phosphorus (test code = Phosphorus) 2.0 2.5-4.5 [facility] [id number] 15:41:00 Test Item Value Reference Range Interpretation Comments eGFR (test code = eGFR) 23 [facility] [id number] 15:41:00 Test Item Value Reference Range Interpretation Comments ASPARTATE TRANSAMINASE 11 See_Comment [Aut omated message] (test code = ASPARTATE The s ystem which TRANSAMINASE) generated this result transmitted ref erence range: <=37. Th e reference range was not used to interpr et this result as normal/abnormal . [facility] [id number] 15:41:00 Test Item Value Reference Range Interpretation Comments Bili Total (test code = Bili Total) 0.5 0.2-1.3 [facility] [id number] 15:41:00 Test Item Value Reference Range Interpretation Comments Total Protein (test code = Total 8.3 6.4-8.4 Protein) [facility] [id number] 15:41:00 Test Item Value Reference Range Interpretation Comments CO2 (test code = CO2) 22 24-32 [facility] [id number] 15:41:00 Test Item Value Reference Range Interpretation Comments Calcium Lvl (test code = Calcium Lvl) 8.7 8.5-10.[address] [facility]2017-09-04 15:41:00 Test Item Value Reference Range Interpretation Comments Potassium Lvl (test code = Potassium 3.9 3.5-5.1 Lvl) [facility]2017-09-04 15:41:00 Test Item Value Reference Range Interpretation Comments Chloride Lvl (test code = Chloride Lvl) 108 95-[address] [facility]2017-09-04 15:41:00 Test Item Value Reference Range Interpretation Comments Creatinine Lvl (test code = Creatinine 2.82 0.50-1.40 Lvl) [facility]2017-09-04 15:41:00 Test Item Value Reference Range Interpretation Comments Sodium Lvl (test code = Sodium Lvl) 139 135-[address] [facility]2017-09-04 15:41:00 Test Item Value Reference Range Interpretation Comments BUN (test code = BUN) 30 7-[address] [facility]2017-09-04 15:41:00 Test Item Value Reference Range Interpretation Comments Glucose Lvl (test code = Glucose Lvl) 137 70-[address] [facility]2017-09-04 15:41:00 Test Item Value Reference Range Interpretation Comments Albumin Lvl (test code = Albumin Lvl) 3.6 3.5-5.[address] [facility]2017-09-04 15:41:00 Test Item Value Reference Range Interpretation Comments Alk Phos (test code = Alk Phos) 73 39-[address] [facility]2017-09-04 15:41:00 Test Item Value Reference Range Interpretation Comments ALANINE AMINOTRANSFERASE 16 See_Comment [A utomated message] (test code = ALANINE The sys tem which AMINOTRANSFERASE) generated this result transmitted ref erence range: <=65. Th e reference range was not used to int erpret this result as normal/abnormal . [facility]2017-09-04 15:41:00 Test Item Value Reference Range Interpretation Comments A/G Ratio (test code = A/G Ratio) 0.8 0.7-1.[address] [facility]2017-09-04 15:41:00 Test Item Value Reference Range Interpretation Comments B/C Ratio (test code = B/C Ratio) 11 6-[address] [facility]2017-09-04 15:41:00 Test Item Value Reference Range Interpretation Comments Globulin (test code = Globulin) 4.7 2.7-4.[address] [facility]2017-09-04 15:41:00 Test Item Value Reference Range Interpretation Comments AGAP (test code = AGAP) 12.9 10.0-20.[address] [facility]2017-09-04 15:41:00 Test Item Value Reference Range Interpretation Comments Lipase Lvl (test code = Lipase Lvl) 144 73-393 [facility] HospitalTjzyjlmDVBOAWQGXR1405-76-54 15:41:00 Test Item Value Reference Range Interpretation Comments Segs (test code = Segs) 75.6 45.0-75.0 [facility] HospitalQdpzvqrNCAIZFJTHV0300-75-82 15:41:00 Test Item Value Reference Range Interpretation Comments Basophils # (test code 0.1 See_Comment [Aut omated message] The = Basophils #) system which generated this result tra nsmitted reference range : <=0.2. The reference r carlos was not used to int erpret this result as normal/abnormal . [facility] HospitalDgshctlMSHPUYMEZY6196-04-83 15:41:00 Test Item Value Reference Range Interpretation Comments Monocytes # (test code 0.9 See_Comment [Aut omated message] The = Monocytes #) system which generated this result tra nsmitted reference range : <=0.8. The reference r carlos was not used to int erpret this result as normal/abnormal . [facility] HospitalIzepbwgBAMAQBKYPJ9678-52-90 15:41:00 Test Item Value Reference Range Interpretation Comments Eosinophils # (test code 0.2 See_Comment [A utomated message] The = Eosinophils #) system whic h generated this result tra nsmitted reference range : <=0.5. The reference r carlos was not used to int erpret this result as normal/abnormal . [facility] HospitalFfifpwmLTGUKWVCXI8152-09-67 15:41:00 Test Item Value Reference Range Interpretation Comments Eosinophils (test code = 1.8 See_Comment [A utomated message] The Eosinophils) system which ge nerated this result tra nsmitted reference range : <=4.0. The reference r carlos was not used to int erpret this result as normal/abnormal . [facility] Ho[id number] 15:41:00 Test Item Value Reference Range Interpretation Comments Basophils (test code = 0.6 See_Comment [Aut omated message] The Basophils) system which ge nerated this result tra nsmitted reference range : <=1.0. The reference r carlos was not used to int erpret this result as normal/abnormal . [facility] HospitalXlxfgfsTPMQLHHUUX5701-53-22 15:41:00 Test Item Value Reference Range Interpretation Comments Lymphocytes (test code = Lymphocytes) 14.5 20.0-40.0 [facility] HospitalBvamtoqLOBJUNUNZE7342-73-20 15:41:00 Test Item Value Reference Range Interpretation Comments Monocytes (test code = Monocytes) 7.5 2.0-12.0 [facility] HospitalWnszbzfUKZSJIFMBE2886-75-09 15:41:00 Test Item Value Reference Range Interpretation Comments Segs-Bands # (test code = Segs-Bands #) 9.4 1.5-8.1 [facility] HospitalDzmlwfaICNMIRIWRB4926-72-34 15:41:00 Test Item Value Reference Range Interpretation Comments Lymphocytes # (test code = Lymphocytes 1.8 1.0-5.5 #) [facility] HospitalRzhlqtkYGRRWGPCBB5965-12-22 15:41:00 Test Item Value Reference Range Interpretation Comments MCV (test code = MCV) 88.5 80.0-94.0 [facility] HospitalZfxicchRMCRUIJFZG9797-20-34 15:41:00 Test Item Value Reference Range Interpretation Comments MCH (test code = MCH) 29.3 pg 27.0-31.0 [facility] HospitalBkepfxrEZVEZNUFHN6527-35-60 15:41:00 Test Item Value Reference Range Interpretation Comments Hct (test code = Hct) 40.7 42.0-54.0 [facility] HospitalCbisvgtBCMHBVOQEC2151-06-67 15:41:00 Test Item Value Reference Range Interpretation Comments MCHC (test code = MCHC) 33.2 32.0-36.0 [facility] HospitalGfhgjysUVAJMURSIH6188-80-13 15:41:00 Test Item Value Reference Range Interpretation Comments RDW (test code = RDW) 15.1 11.5-14.5 [facility] HospitalCqakdqeUPUPRMPFVS5271-22-00 15:41:00 Test Item Value Reference Range Interpretation Comments Hgb (test code = Hgb) 13.5 14.0-18.0 [facility] HospitalFmmmbnaZBYOSUDSGN8153-39-78 15:41:00 Test Item Value Reference Range Interpretation Comments WBC X 10x3 (test code = WBC X 10x3) 12.5 3.7-10.4 [facility]UufgvylFJIKNBDGOJ1159-28-92 15:41:00 Test Item Value Reference Range Interpretation Comments RBC X 10x6 (test code = RBC X 10x6) 4.60 4.70-6.10 [facility]woodCtizaqaFPHSVUKGEP9150-02-11 15:41:00 Test Item Value Reference Range Interpretation Comments MPV (test code = MPV) 8.7 7.4-10.4 [facility] SystemJfooojdZABPMXOOFT7545-98-16 15:41:00 Test Item Value Reference Range Interpretation Comments Platelet (test code = Platelet) 278 133-450 [facility]ARD[facility] [id number] 15:41:00 Test Item Value Reference Range Interpretation Comments Troponin-I (test code no gt See_Comment [Auto mated message] The = Troponin-I) system which g enerated this result transmit nicko reference range : <=0.40. The reference r carlos was not used to interpr et this result as adebayo l/abnormal. [facility] [id number] 15:41:00 Test Item Value Reference Range Interpretation Comments Magnesium Lvl (test code = Magnesium 1.5 1.8-2.4 Lvl) [facility] [id number] 15:41:00 Test Item Value Reference Range Interpretation Comments Phosphorus (test code = Phosphorus) 2.0 2.5-4.5 [facility] [id number] 15:41:00 Test Item Value Reference Range Interpretation Comments eGFR (test code = eGFR) 23 [facility] [id number] 15:41:00 Test Item Value Reference Range Interpretation Comments ASPARTATE TRANSAMINASE 11 See_Comment [Aut omated message] (test code = ASPARTATE The s ystem which TRANSAMINASE) generated this result transmitted ref erence range: <=37. Th e reference range was not used to interpr et this result as normal/abnormal . [facility] [id number] 15:41:00 Test Item Value Reference Range Interpretation Comments Bili Total (test code = Bili Total) 0.5 0.2-1.3 [facility] [id number] 15:41:00 Test Item Value Reference Range Interpretation Comments Total Protein (test code = Total 8.3 6.4-8.4 Protein) [facility]2017-09-04 15:41:00 Test Item Value Reference Range Interpretation Comments CO2 (test code = CO2) 22 24-[address] [facility]2017-09-04 15:41:00 Test Item Value Reference Range Interpretation Comments Calcium Lvl (test code = Calcium Lvl) 8.7 8.5-10.[address] [facility]2017-09-04 15:41:00 Test Item Value Reference Range Interpretation Comments Potassium Lvl (test code = Potassium 3.9 3.5-5.1 Lvl) [facility]2017-09-04 15:41:00 Test Item Value Reference Range Interpretation Comments Chloride Lvl (test code = Chloride Lvl) 108 95-[address] [facility]2017-09-04 15:41:00 Test Item Value Reference Range Interpretation Comments Creatinine Lvl (test code = Creatinine 2.82 0.50-1.40 Lvl) [facility]2017-09-04 15:41:00 Test Item Value Reference Range Interpretation Comments Sodium Lvl (test code = Sodium Lvl) 139 135-[address] [facility]2017-09-04 15:41:00 Test Item Value Reference Range Interpretation Comments BUN (test code = BUN) 30 7-[address] [facility]2017-09-04 15:41:00 Test Item Value Reference Range Interpretation Comments Glucose Lvl (test code = Glucose Lvl) 137 70-[address] [facility]2017-09-04 15:41:00 Test Item Value Reference Range Interpretation Comments Albumin Lvl (test code = Albumin Lvl) 3.6 3.5-5.[address] [facility]2017-09-04 15:41:00 Test Item Value Reference Range Interpretation Comments Alk Phos (test code = Alk Phos) 73 39-[address] [facility]2017-09-04 15:41:00 Test Item Value Reference Range Interpretation Comments ALANINE AMINOTRANSFERASE 16 See_Comment [A utomated message] (test code = ALANINE The sys tem which AMINOTRANSFERASE) generated this result transmitted ref erence range: <=65. Th e reference range was not used to int erpret this result as normal/abnormal . [facility]2017-09-04 15:41:00 Test Item Value Reference Range Interpretation Comments A/G Ratio (test code = A/G Ratio) 0.8 0.7-1.[address] [facility]2017-09-04 15:41:00 Test Item Value Reference Range Interpretation Comments B/C Ratio (test code = B/C Ratio) 11 6-[address] [facility]2017-09-04 15:41:00 Test Item Value Reference Range Interpretation Comments Globulin (test code = Globulin) 4.7 2.7-4.[address] [facility]2017-09-04 15:41:00 Test Item Value Reference Range Interpretation Comments AGAP (test code = AGAP) 12.9 10.0-20.[address] [facility]2017-09-04 15:41:00 Test Item Value Reference Range Interpretation Comments Lipase Lvl (test code = Lipase Lvl) 144 73-393 [facility]MsickgmNYSCBRYRKK2515-80-57 15:41:00 Test Item Value Reference Range Interpretation Comments Segs (test code = Segs) 75.6 45.0-75.0 [facility] HospitalWtrgljnBKRQCFDFIN2798-39-76 15:41:00 Test Item Value Reference Range Interpretation Comments Basophils # (test code 0.1 See_Comment [Aut omated message] The = Basophils #) system which generated this result tra nsmitted reference range : <=0.2. The reference r carlos was not used to int erpret this result as normal/abnormal . [facility] HospitalNconrnaQJKKXPEMYO9560-99-13 15:41:00 Test Item Value Reference Range Interpretation Comments Monocytes # (test code 0.9 See_Comment [Aut omated message] The = Monocytes #) system which generated this result tra nsmitted reference range : <=0.8. The reference r carlos was not used to int erpret this result as normal/abnormal . [facility] HospitalXlfwersGGBGCBTYSH9365-92-13 15:41:00 Test Item Value Reference Range Interpretation Comments Eosinophils # (test code 0.2 See_Comment [A utomated message] The = Eosinophils #) system whic h generated this result tra nsmitted reference range : <=0.5. The reference r carlos was not used to int erpret this result as normal/abnormal . [facility] HospitalSnxgiczEVBVALRYGD4438-37-02 15:41:00 Test Item Value Reference Range Interpretation Comments Eosinophils (test code = 1.8 See_Comment [A utomated message] The Eosinophils) system which ge nerated this result tra nsmitted reference range : <=4.0. The reference r carlos was not used to int erpret this result as normal/abnormal . [facility] HospitalKpspsmxQTRILQTEBH7194-79-08 15:41:00 Test Item Value Reference Range Interpretation Comments Basophils (test code = 0.6 See_Comment [Aut omated message] The Basophils) system which ge nerated this result tra nsmitted reference range : <=1.0. The reference r carlos was not used to int erpret this result as normal/abnormal . [facility] HospitalEstgxjnQTDWLBDWUD5594-30-24 15:41:00 Test Item Value Reference Range Interpretation Comments Lymphocytes (test code = Lymphocytes) 14.5 20.0-40.0 [facility] HospitalBysteitHMFPGOHJQY1010-88-31 15:41:00 Test Item Value Reference Range Interpretation Comments Monocytes (test code = Monocytes) 7.5 2.0-12.0 [facility] HospitalHvpciorRUQIXEJMFX3332-18-82 15:41:00 Test Item Value Reference Range Interpretation Comments Segs-Bands # (test code = Segs-Bands #) 9.4 1.5-8.1 [facility] HospitalQuqlbraTQVPTXUTBV6332-52-99 15:41:00 Test Item Value Reference Range Interpretation Comments Lymphocytes # (test code = Lymphocytes 1.8 1.0-5.5 #) [facility] HospitalFifthktYOLDIQRAMO4611-82-91 15:41:00 Test Item Value Reference Range Interpretation Comments MCV (test code = MCV) 88.5 80.0-94.0 [facility] HospitalIwhbbihKMSUGARWDB6670-03-45 15:41:00 Test Item Value Reference Range Interpretation Comments MCH (test code = MCH) 29.3 pg 27.0-31.0 [facility] HospitalPbizdplHJDDLBKKGG4345-28-95 15:41:00 Test Item Value Reference Range Interpretation Comments Hct (test code = Hct) 40.7 42.0-54.0 [facility] HospitalJpvjckvLUJSINLDHC3316-50-22 15:41:00 Test Item Value Reference Range Interpretation Comments MCHC (test code = MCHC) 33.2 32.0-36.0 [facility] HospitalRjivkxgYESOKMHZFH6131-74-89 15:41:00 Test Item Value Reference Range Interpretation Comments RDW (test code = RDW) 15.1 11.5-14.5 [facility] HospitalCaexygpWQUVDQOHMI9894-29-21 15:41:00 Test Item Value Reference Range Interpretation Comments Hgb (test code = Hgb) 13.5 14.0-18.0 [facility] HospitalNhgfaafGOEXMZEAWL0323-91-19 15:41:00 Test Item Value Reference Range Interpretation Comments WBC X 10x3 (test code = WBC X 10x3) 12.5 3.7-10.4 [facility] HospitalVjlftoiPHTTXCVZTN1271-28-97 15:41:00 Test Item Value Reference Range Interpretation Comments RBC X 10x6 (test code = RBC X 10x6) 4.60 4.70-6.10 [facility] HospitalGnbjgomGYPVFUMJZB8949-41-63 15:41:00 Test Item Value Reference Range Interpretation Comments MPV (test code = MPV) 8.7 7.4-10.4 [facility] HospitalNgbmstoDJWOZZVJQS0058-79-35 15:41:00 Test Item Value Reference Range Interpretation Comments Platelet (test code = Platelet) 278 133-[address] [facility]2016-07-11 18:55:00 Test Item Value Reference Range Interpretation Comments Alk Phos (test code = Alk Phos) 60 39-[address] [facility]2016-07-11 18:55:00 Test Item Value Reference Range Interpretation Comments BUN (test code = BUN) 31 7-[address] [facility]2016-07-11 18:55:00 Test Item Value Reference Range Interpretation Comments Glucose Lvl (test code = Glucose Lvl) 81 70-[address] [facility]2016-07-11 18:55:00 Test Item Value Reference Range Interpretation Comments Bili Total (test code = Bili Total) 0.4 0.2-1.[address] [facility]2016-07-11 18:55:00 Test Item Value Reference Range Interpretation Comments Total Protein (test code = Total 7.4 6.4-8.4 Protein) [facility]2016-07-11 18:55:00 Test Item Value Reference Range Interpretation Comments Calcium Lvl (test code = Calcium Lvl) 8.5 8.5-10.[address] [facility]2016-07-11 18:55:00 Test Item Value Reference Range Interpretation Comments ALANINE AMINOTRANSFERASE 15 See_Comment [A utomated message] (test code = ALANINE The sys tem which AMINOTRANSFERASE) generated this result transmitted ref erence range: <=65. Th e reference range was not used to int erpret this result as normal/abnormal . [facility]2016-07-11 18:55:00 Test Item Value Reference Range Interpretation Comments ASPARTATE TRANSAMINASE 12 See_Comment [Aut omated message] (test code = ASPARTATE The s ystem which TRANSAMINASE) generated this result transmitted ref erence range: <=37. Th e reference range was not used to interpr et this result as normal/abnormal . [facility] HospitalHmtydxiGGYOVLOVGM1904-32-79 18:55:00 Test Item Value Reference Range Interpretation Comments Eosinophils (test code = 2.6 See_Comment [A utomated message] The Eosinophils) system which ge nerated this result tra nsmitted reference range : <=4.0. The reference r carlos was not used to int erpret this result as normal/abnormal . [facility] HospitalEazcldbGAFZMRYXNI6128-71-10 18:55:00 Test Item Value Reference Range Interpretation Comments Lymphocytes (test code = Lymphocytes) 23.1 20.0-40.0 [facility] HospitalCxluvjsQUZDQLJXDH6255-12-86 18:55:00 Test Item Value Reference Range Interpretation Comments Monocytes (test code = Monocytes) 9.4 2.0-12.0 [facility] HospitalKwjlawnOGNIDUNVOZ6123-22-28 18:55:00 Test Item Value Reference Range Interpretation Comments Eosinophils # (test code 0.2 See_Comment [A utomated message] The = Eosinophils #) system wh h generated this result tra nsmitted reference range : <=0.5. The reference r carlos was not used to int erpret this result as normal/abnormal . [facility] HospitalInhrqxgHFNZGOOFIK5907-64-67 18:55:00 Test Item Value Reference Range Interpretation Comments Basophils # (test code 0.1 See_Comment [Aut omated message] The = Basophils #) system which generated this result tra nsmitted reference range : <=0.2. The reference r carlos was not used to int erpret this result as normal/abnormal . [facility] HospitalIckelegOLKDEUHZBZ5130-16-63 18:55:00 Test Item Value Reference Range Interpretation Comments Basophils (test code = 0.8 See_Comment [Aut omated message] The Basophils) system which ge nerated this result tra nsmitted reference range : <=1.0. The reference r carlos was not used to int erpret this result as normal/abnormal . [facility] HospitalGkhkditPKZUNFBQOY6666-45-72 18:55:00 Test Item Value Reference Range Interpretation Comments Lymphocytes # (test code = Lymphocytes 1.8 1.0-5.5 #) [facility] HospitalDbniqulCHMUEXAGBG2757-02-13 18:55:00 Test Item Value Reference Range Interpretation Comments Monocytes # (test code 0.7 See_Comment [Aut omated message] The = Monocytes #) system which generated this result tra nsmitted reference range : <=0.8. The reference r carlos was not used to int erpret this result as normal/abnormal . [facility] HospitalIlihakgGEVRONRZKC3765-06-95 18:55:00 Test Item Value Reference Range Interpretation Comments Segs-Bands # (test code = Segs-Bands #) 5.0 1.5-8.1 [facility] HospitalFpnxwigXMOQABUYHS1766-47-92 18:55:00 Test Item Value Reference Range Interpretation Comments Segs (test code = Segs) 64.1 45.0-75.0 [facility] HospitalFbxidgaVRNJZNLJLA6120-81-32 18:55:00 Test Item Value Reference Range Interpretation Comments Platelet (test code = Platelet) 193 133-450 [facility] HospitalZamdqrgXAXUVDNSGB0621-45-96 18:55:00 Test Item Value Reference Range Interpretation Comments MPV (test code = MPV) 8.5 7.4-10.4 [facility] HospitalGnkyyogOXDXEIQKGD7640-12-00 18:55:00 Test Item Value Reference Range Interpretation Comments RDW (test code = RDW) 17.0 11.5-14.5 [facility] HospitalEempcmzSTSFASBOXB4211-24-82 18:55:00 Test Item Value Reference Range Interpretation Comments MCHC (test code = MCHC) 32.5 32.0-36.0 [facility] HospitalLikedbbCOVNHMMVCC6390-99-72 18:55:00 Test Item Value Reference Range Interpretation Comments MCV (test code = MCV) 89.4 80.0-94.0 [facility] HospitalUtnjsvzYTGBMTDNAS6346-61-35 18:55:00 Test Item Value Reference Range Interpretation Comments RBC X 10x6 (test code = RBC X 10x6) 4.19 4.70-6.10 [facility] HospitalMrhoxxcBBVVNPHMNS4784-93-36 18:55:00 Test Item Value Reference Range Interpretation Comments MCH (test code = MCH) 29.1 pg 27.0-31.0 [facility] HospitalFuozxjkYXRWGHFXUP0604-35-99 18:55:00 Test Item Value Reference Range Interpretation Comments Hct (test code = Hct) 37.5 42.0-54.0 [facility] HospitalHfoebzsWTPIKUDCRD4063-71-75 18:55:00 Test Item Value Reference Range Interpretation Comments Hgb (test code = Hgb) 12.2 14.0-18.0 [facility] HospitalIcdgwdbGFMUVPAPKZ7147-24-73 18:55:00 Test Item Value Reference Range Interpretation Comments WBC X 10x3 (test code = WBC X 10x3) 7.8 3.7-10.4 [place] [id number] 18:55:00 Test Item Value Reference Range Interpretation Comments Grp A Strep Scr (test Negative (09/10/15 1:55 code = Grp A Strep PM) Scr) [facility]2016-07-11 18:55:00 Test Item Value Reference Range Interpretation Comments B/C Ratio (test code = B/C Ratio) 13 6-[address] [facility]2016-07-11 18:55:00 Test Item Value Reference Range Interpretation Comments Globulin (test code = Globulin) 3.9 2.0-4.[address] [facility]2016-07-11 18:55:00 Test Item Value Reference Range Interpretation Comments A/G Ratio (test code = A/G Ratio) 0.9 0.7-1.[address] [facility]2016-07-11 18:55:00 Test Item Value Reference Range Interpretation Comments AGAP (test code = AGAP) 8.6 10.0-20.[address] [facility]2016-07-11 18:55:00 Test Item Value Reference Range Interpretation Comments eGFR (test code = eGFR) [address] [facility]2016-07-11 18:55:00 Test Item Value Reference Range Interpretation Comments Sodium Lvl (test code = Sodium Lvl) 142 135-[address] [facility]2016-07-11 18:55:00 Test Item Value Reference Range Interpretation Comments Potassium Lvl (test code = Potassium 4.6 3.5-5.1 Lvl) [facility]2016-07-11 18:55:00 Test Item Value Reference Range Interpretation Comments Creatinine Lvl (test code = Creatinine 2.45 0.50-1.40 Lvl) [facility]2016-07-11 18:55:00 Test Item Value Reference Range Interpretation Comments Chloride Lvl (test code = Chloride Lvl) 110 95-[address] [facility]2016-07-11 18:55:00 Test Item Value Reference Range Interpretation Comments CO2 (test code = CO2) 28 24-[address] [facility]2016-07-11 18:55:00 Test Item Value Reference Range Interpretation Comments Albumin Lvl (test code = Albumin Lvl) 3.5 3.5-5.[address] [facility]2016-07-11 18:55:00 Test Item Value Reference Range Interpretation Comments Alk Phos (test code = Alk Phos) 60 39-[address] [facility]2016-07-11 18:55:00 Test Item Value Reference Range Interpretation Comments BUN (test code = BUN) 31 7-[address] [facility]2016-07-11 18:55:00 Test Item Value Reference Range Interpretation Comments Glucose Lvl (test code = Glucose Lvl) 81 70-[address] [facility]2016-07-11 18:55:00 Test Item Value Reference Range Interpretation Comments Bili Total (test code = Bili Total) 0.4 0.2-1.[address] [facility]2016-07-11 18:55:00 Test Item Value Reference Range Interpretation Comments Total Protein (test code = Total 7.4 6.4-8.4 Protein) [facility]2016-07-11 18:55:00 Test Item Value Reference Range Interpretation Comments Calcium Lvl (test code = Calcium Lvl) 8.5 8.5-10.[address] [facility]2016-07-11 18:55:00 Test Item Value Reference Range Interpretation Comments ALANINE AMINOTRANSFERASE 15 See_Comment [A utomated message] (test code = ALANINE The sys tem which AMINOTRANSFERASE) generated this result transmitted ref erence range: <=65. Th e reference range was not used to int erpret this result as normal/abnormal . [facility]2016-07-11 18:55:00 Test Item Value Reference Range Interpretation Comments ASPARTATE TRANSAMINASE 12 See_Comment [Aut omated message] (test code = ASPARTATE The s ystem which TRANSAMINASE) generated this result transmitted ref erence range: <=37. Th e reference range was not used to interpr et this result as normal/abnormal . [facility] HospitalEwbgnmzWBGOGDNAHV1096-09-75 18:55:00 Test Item Value Reference Range Interpretation Comments Eosinophils (test code = 2.6 See_Comment [A utomated message] The Eosinophils) system which ge nerated this result tra nsmitted reference range : <=4.0. The reference r carlos was not used to int erpret this result as normal/abnormal . [facility] HospitalRiqbpjrFKXIOZWWKD8303-41-29 18:55:00 Test Item Value Reference Range Interpretation Comments Lymphocytes (test code = Lymphocytes) 23.1 20.0-40.0 [facility] HospitalBfqlizaHSTSSBEOWS6088-30-06 18:55:00 Test Item Value Reference Range Interpretation Comments Monocytes (test code = Monocytes) 9.4 2.0-12.0 [facility] HospitalFarbgskFQJEBYYAJY0458-00-74 18:55:00 Test Item Value Reference Range Interpretation Comments Eosinophils # (test code 0.2 See_Comment [A utomated message] The = Eosinophils #) system whic h generated this result tra nsmitted reference range : <=0.5. The reference r carlos was not used to int erpret this result as normal/abnormal . [facility] HospitalHxblngfEGCJCJEPCS7489-52-18 18:55:00 Test Item Value Reference Range Interpretation Comments Basophils # (test code 0.1 See_Comment [Aut omated message] The = Basophils #) system which generated this result tra nsmitted reference range : <=0.2. The reference r carlos was not used to int erpret this result as normal/abnormal . [facility] HospitalWylngyjLIVVQHIVDI8527-53-58 18:55:00 Test Item Value Reference Range Interpretation Comments Basophils (test code = 0.8 See_Comment [Aut omated message] The Basophils) system which ge nerated this result tra nsmitted reference range : <=1.0. The reference r carlos was not used to int erpret this result as normal/abnormal . [facility] HospitalWckjsjrYQVRPCGUJA4552-88-27 18:55:00 Test Item Value Reference Range Interpretation Comments Lymphocytes # (test code = Lymphocytes 1.8 1.0-5.5 #) [facility] HospitalAkbqqibWVGIIDHMZX2259-16-32 18:55:00 Test Item Value Reference Range Interpretation Comments Monocytes # (test code 0.7 See_Comment [Aut omated message] The = Monocytes #) system which generated this result tra nsmitted reference range : <=0.8. The reference r carlos was not used to int erpret this result as normal/abnormal . [facility] HospitalEeitrjgKENGDLUYUF1809-10-36 18:55:00 Test Item Value Reference Range Interpretation Comments Segs-Bands # (test code = Segs-Bands #) 5.0 1.5-8.1 [facility] HospitalCqttkxwGDXILJGGMS9578-60-89 18:55:00 Test Item Value Reference Range Interpretation Comments Segs (test code = Segs) 64.1 45.0-75.0 [facility] HospitalPkaapyySNDCZCWWJC8760-69-05 18:55:00 Test Item Value Reference Range Interpretation Comments Platelet (test code = Platelet) 193 133-450 [facility] HospitalYbisotyXZCLKWSHIR3392-08-31 18:55:00 Test Item Value Reference Range Interpretation Comments MPV (test code = MPV) 8.5 7.4-10.4 [facility] HospitalMshvlyfYHDRZCZAKK5871-38-68 18:55:00 Test Item Value Reference Range Interpretation Comments RDW (test code = RDW) 17.0 11.5-14.5 [facility] HospitalHgqsbeuYFRQNIDANG1549-76-33 18:55:00 Test Item Value Reference Range Interpretation Comments MCHC (test code = MCHC) 32.5 32.0-36.0 [facility] HospitalLgcsvknJNUQRVKNHC1612-73-11 18:55:00 Test Item Value Reference Range Interpretation Comments MCV (test code = MCV) 89.4 80.0-94.0 [facility] HospitalIluskdiKWFJQIFBHF1223-12-27 18:55:00 Test Item Value Reference Range Interpretation Comments RBC X 10x6 (test code = RBC X 10x6) 4.19 4.70-6.10 [facility] HospitalNqdshnjWPYQWXTZQE4072-62-43 18:55:00 Test Item Value Reference Range Interpretation Comments MCH (test code = MCH) 29.1 pg 27.0-31.0 [facility] HospitalLcjvprpACPYVSHOSU8551-62-32 18:55:00 Test Item Value Reference Range Interpretation Comments Hct (test code = Hct) 37.5 42.0-54.0 [facility] HospitalKktsuhzVOZOSLKGWV2531-18-78 18:55:00 Test Item Value Reference Range Interpretation Comments Hgb (test code = Hgb) 12.2 14.0-18.0 [facility] HospitalTdhmkcpEDQSUFUYJS2991-10-81 18:55:00 Test Item Value Reference Range Interpretation Comments WBC X 10x3 (test code = WBC X 10x3) 7.8 3.7-10.4 [place] [id number] 18:55:00 Test Item Value Reference Range Interpretation Comments Grp A Strep Scr (test Negative (09/10/15 1:55 code = Grp A Strep PM) Scr) [facility]2016-07-11 18:55:00 Test Item Value Reference Range Interpretation Comments B/C Ratio (test code = B/C Ratio) 13 6-[address] [facility]2016-07-11 18:55:00 Test Item Value Reference Range Interpretation Comments Globulin (test code = Globulin) 3.9 2.0-4.[address] [facility]2016-07-11 18:55:00 Test Item Value Reference Range Interpretation Comments A/G Ratio (test code = A/G Ratio) 0.9 0.7-1.[address] [facility]2016-07-11 18:55:00 Test Item Value Reference Range Interpretation Comments AGAP (test code = AGAP) 8.6 10.0-20.[address] [facility]2016-07-11 18:55:00 Test Item Value Reference Range Interpretation Comments eGFR (test code = eGFR) [address] [facility]2016-07-11 18:55:00 Test Item Value Reference Range Interpretation Comments Sodium Lvl (test code = Sodium Lvl) 142 135-[address] [facility]2016-07-11 18:55:00 Test Item Value Reference Range Interpretation Comments Potassium Lvl (test code = Potassium 4.6 3.5-5.1 Lvl) [facility]2016-07-11 18:55:00 Test Item Value Reference Range Interpretation Comments Creatinine Lvl (test code = Creatinine 2.45 0.50-1.40 Lvl) [facility]2016-07-11 18:55:00 Test Item Value Reference Range Interpretation Comments Chloride Lvl (test code = Chloride Lvl) 110 95-[address] [facility]2016-07-11 18:55:00 Test Item Value Reference Range Interpretation Comments CO2 (test code = CO2) [address] [facility]2016-07-11 18:55:00 Test Item Value Reference Range Interpretation Comments Albumin Lvl (test code = Albumin Lvl) 3.5 3.5-5.[address] [facility]2016-07-11 18:55:00 Test Item Value Reference Range Interpretation Comments B/C Ratio (test code = B/C Ratio) 13 08-[address] [facility]2016-07-11 18:55:00 Test Item Value Reference Range Interpretation Comments Globulin (test code = Globulin) 3.9 2.0-4.[address] [facility]2016-07-11 18:55:00 Test Item Value Reference Range Interpretation Comments A/G Ratio (test code = A/G Ratio) 0.9 0.7-1.[address] [facility]2016-07-11 18:55:00 Test Item Value Reference Range Interpretation Comments AGAP (test code = AGAP) 8.6 10.0-20.[address] [facility]2016-07-11 18:55:00 Test Item Value Reference Range Interpretation Comments eGFR (test code = eGFR) [address] [facility]2016-07-11 18:55:00 Test Item Value Reference Range Interpretation Comments Sodium Lvl (test code = Sodium Lvl) 142 135-[address] [facility]2016-07-11 18:55:00 Test Item Value Reference Range Interpretation Comments Potassium Lvl (test code = Potassium 4.6 3.5-5.1 Lvl) [facility]2016-07-11 18:55:00 Test Item Value Reference Range Interpretation Comments Creatinine Lvl (test code = Creatinine 2.45 0.50-1.40 Lvl) [facility]2016-07-11 18:55:00 Test Item Value Reference Range Interpretation Comments Chloride Lvl (test code = Chloride Lvl) 110 95-[address] [facility]2016-07-11 18:55:00 Test Item Value Reference Range Interpretation Comments CO2 (test code = CO2) [address] [facility]2016-07-11 18:55:00 Test Item Value Reference Range Interpretation Comments Albumin Lvl (test code = Albumin Lvl) 3.5 3.5-5.[address] [facility]2016-07-11 18:55:00 Test Item Value Reference Range Interpretation Comments Alk Phos (test code = Alk Phos) 60 39-[address] [facility]2016-07-11 18:55:00 Test Item Value Reference Range Interpretation Comments BUN (test code = BUN) 31 7-[address] [facility]2016-07-11 18:55:00 Test Item Value Reference Range Interpretation Comments Glucose Lvl (test code = Glucose Lvl) 81 70-[address] [facility]2016-07-11 18:55:00 Test Item Value Reference Range Interpretation Comments Bili Total (test code = Bili Total) 0.4 0.2-1.[address] [facility]2016-07-11 18:55:00 Test Item Value Reference Range Interpretation Comments Total Protein (test code = Total 7.4 6.4-8.4 Protein) [facility]2016-07-11 18:55:00 Test Item Value Reference Range Interpretation Comments Calcium Lvl (test code = Calcium Lvl) 8.5 8.5-10.[address] [facility]2016-07-11 18:55:00 Test Item Value Reference Range Interpretation Comments ALANINE AMINOTRANSFERASE 15 See_Comment [A utomated message] (test code = ALANINE The sys tem which AMINOTRANSFERASE) generated this result transmitted ref erence range: <=65. Th e reference range was not used to int erpret this result as normal/abnormal . [facility]2016-07-11 18:55:00 Test Item Value Reference Range Interpretation Comments ASPARTATE TRANSAMINASE 12 See_Comment [Aut omated message] (test code = ASPARTATE The s ystem which TRANSAMINASE) generated this result transmitted ref erence range: <=37. Th e reference range was not used to interpr et this result as normal/abnormal . [id number] 18:55:00 Test Item Value Reference Range Interpretation Comments Eosinophils (test code = 2.6 See_Comment [A utomated message] The Eosinophils) system which ge nerated this result tra nsmitted reference range : <=4.0. The reference r carlos was not used to int erpret this result as normal/abnormal . [facility] Ho[id number] 18:55:00 Test Item Value Reference Range Interpretation Comments Lymphocytes (test code = Lymphocytes) 23.1 20.0-40.0 [facility] HospitalYmagthoNUBFTJKNAD0500-22-31 18:55:00 Test Item Value Reference Range Interpretation Comments Monocytes (test code = Monocytes) 9.4 2.0-12.0 [facility] Hospit[id number] 18:55:00 Test Item Value Reference Range Interpretation Comments Eosinophils # (test code 0.2 See_Comment [A utomated message] The = Eosinophils #) system whic h generated this result tra nsmitted reference range : <=0.5. The reference r carlos was not used to int erpret this result as normal/abnormal . [facility] [id number] 18:55:00 Test Item Value Reference Range Interpretation Comments Basophils # (test code 0.1 See_Comment [Aut omated message] The = Basophils #) system which generated this result tra nsmitted reference range : <=0.2. The reference r carlos was not used to int erpret this result as normal/abnormal . [facility] Hospit[id number] 18:55:00 Test Item Value Reference Range Interpretation Comments Basophils (test code = 0.8 See_Comment [Aut omated message] The Basophils) system which ge nerated this result tra nsmitted reference range : <=1.0. The reference r carlos was not used to int erpret this result as normal/abnormal . [facility] H[id number] 18:55:00 Test Item Value Reference Range Interpretation Comments Lymphocytes # (test code = Lymphocytes 1.8 1.0-5.5 #) [facility] H[id number] 18:55:00 Test Item Value Reference Range Interpretation Comments Monocytes # (test code 0.7 See_Comment [Aut omated message] The = Monocytes #) system which generated this result tra nsmitted reference range : <=0.8. The reference r carlos was not used to int erpret this result as normal/abnormal . [facility] HospitalPzfjpycJPQCZXJRVQ1727-29-91 18:55:00 Test Item Value Reference Range Interpretation Comments Segs-Bands # (test code = Segs-Bands #) 5.0 1.5-8.1 [facility] HospitalEgyizvdDRBZREIDVD9461-10-58 18:55:00 Test Item Value Reference Range Interpretation Comments Segs (test code = Segs) 64.1 45.0-75.0 [facility] HospitalXmhvuimTSSZYSXDTY2745-79-45 18:55:00 Test Item Value Reference Range Interpretation Comments Platelet (test code = Platelet) 193 133-450 [facility] HospitalGwhfgvkNVADFQQEJD2069-50-53 18:55:00 Test Item Value Reference Range Interpretation Comments MPV (test code = MPV) 8.5 7.4-10.4 [facility] HospitalNtztigaKXJRQUAIQY2770-45-25 18:55:00 Test Item Value Reference Range Interpretation Comments RDW (test code = RDW) 17.0 11.5-14.5 [facility] Hospit[id number] 18:55:00 Test Item Value Reference Range Interpretation Comments MCHC (test code = MCHC) 32.5 32.0-36.0 [facility] HospitalOhazwmlJDVYQIZDMF1780-98-41 18:55:00 Test Item Value Reference Range Interpretation Comments MCV (test code = MCV) 89.4 80.0-94.0 [facility] HospitalDghzgyuYMZTNCIKLA6178-89-27 18:55:00 Test Item Value Reference Range Interpretation Comments RBC X 10x6 (test code = RBC X 10x6) 4.19 4.70-6.10 [facility] HospitalSwpbkotDANFSNAEAB7947-18-08 18:55:00 Test Item Value Reference Range Interpretation Comments MCH (test code = MCH) 29.1 pg 27.0-31.0 [facility] HospitalHnngkbnUIJYROPJJF2264-08-91 18:55:00 Test Item Value Reference Range Interpretation Comments Hct (test code = Hct) 37.5 42.0-54.0 [facility] HospitalSbycxjwPCWQSMUYTI1068-28-30 18:55:00 Test Item Value Reference Range Interpretation Comments Hgb (test code = Hgb) 12.2 14.0-18.0 [facility] Hospit[id number] 18:55:00 Test Item Value Reference Range Interpretation Comments WBC X 10x3 (test code = WBC X 10x3) 7.8 3.7-10.4 [place] [id number] 18:55:00 Test Item Value Reference Range Interpretation Comments Grp A Strep Scr (test Negative (09/10/15 1:55 code = Grp A Strep PM) Scr) [facility] AND [id number] 16:22:00 Test Item Value Reference Range Interpretation Comments UA Nitrite (test code Negative (06/20/15 11:22 = UA Nitrite) AM) [facility] AND [id number] 16:22:00 Test Item Value Reference Range Interpretation Comments UA Urobilinogen (test code = UA 0.2 0.1-1.0 Urobilinogen) [facility] AND [id number] 16:22:00 Test Item Value Reference Range Interpretation Comments UA Leuk Est (test Negative (06/20/15 11:22 code = UA Leuk Est) AM) [facility] AND [id number] 16:22:00 Test Item Value Reference Range Interpretation Comments UA RBC (test code = 0-2 /HPF See_Comment [Automa nicko message] The UA RBC) system which ge nerated this result tra nsmitted reference range : <=2. The reference range was not used to interpr et this result as adebayo l/abnormal. [facility] AND [id number] 16:22:00 Test Item Value Reference Range Interpretation Comments UA WBC (test code = UA WBC) 0-2 /HPF [facility] AND [id number] 16:22:00 Test Item Value Reference Range Interpretation Comments UA Bacteria (test code = UA Few /HPF Bacteria) [facility] AND [id number] 16:22:00 Test Item Value Reference Range Interpretation Comments UA Sq Epi (test code = UA Sq Epi) Rare /LPF [facility] AND [id number] 16:22:00 Test Item Value Reference Range Interpretation Comments UA Glucose (test code Negative (06/20/15 11:22 = UA Glucose) AM) [facility] AND [id number] 16:22:00 Test Item Value Reference Range Interpretation Comments UA Blood (test code = Negative (06/20/15 11:22 UA Blood) AM) [facility] AND [id number] 16:22:00 Test Item Value Reference Range Interpretation Comments UA Ketones (test code Negative *NA*(06/20/15 = UA Ketones) 11:22 AM) [facility] AND [id number] 16:22:00 Test Item Value Reference Range Interpretation Comments UA Bili (test code = Negative *NA*(06/20/15 UA Bili) 11:22 AM) [facility] AND [id number] 16:22:00 Test Item Value Reference Range Interpretation Comments UA Color (test code = Yellow *NA*(06/20/15 UA Color) 11:22 AM) [facility] AND [id number] 16:22:00 Test Item Value Reference Range Interpretation Comments UA Turbidity (test code = Clear (06/20/15 11:22 UA Turbidity) AM) [facility] AND [id number] 16:22:00 Test Item Value Reference Range Interpretation Comments UA pH (test code = UA pH) 6.0 1 5.0-8.0 [facility] AND [id number] 16:22:00 Test Item Value Reference Range Interpretation Comments UA Spec Grav (test code = UA Spec 1.010 1 Grav) [facility] AND [id number] 16:22:00 Test Item Value Reference Range Interpretation Comments UA Protein (test code = UA Protein) 30 mg/dL [facility] AND [id number] 16:22:00 Test Item Value Reference Range Interpretation Comments UA Nitrite (test code Negative (06/20/15 11:22 = UA Nitrite) AM) [facility] AND [id number] 16:22:00 Test Item Value Reference Range Interpretation Comments UA Urobilinogen (test code = UA 0.2 0.1-1.0 Urobilinogen) [facility] AND [id number] 16:22:00 Test Item Value Reference Range Interpretation Comments UA Leuk Est (test Negative (06/20/15 11:22 code = UA Leuk Est) AM) [facility] AND [id number] 16:22:00 Test Item Value Reference Range Interpretation Comments UA RBC (test code = 0-2 /HPF See_Comment [Automa nicko message] The UA RBC) system which ge nerated this result tra nsmitted reference range : <=2. The reference range was not used to interpr et this result as adebayo l/abnormal. [facility] AND [id number] 16:22:00 Test Item Value Reference Range Interpretation Comments UA WBC (test code = UA WBC) 0-2 /HPF [facility] [id number] 16:22:00 Test Item Value Reference Range Interpretation Comments UA Bacteria (test code = UA Few /HPF Bacteria) [facility] [id number] 16:22:00 Test Item Value Reference Range Interpretation Comments UA Sq Epi (test code = UA Sq Epi) Rare /LPF [facility] AND [id number] 16:22:00 Test Item Value Reference Range Interpretation Comments UA Glucose (test code Negative (06/20/15 11:22 = UA Glucose) AM) [facility] AND [id number] 16:22:00 Test Item Value Reference Range Interpretation Comments UA Blood (test code = Negative (06/20/15 11:22 UA Blood) AM) [facility] AND [id number] 16:22:00 Test Item Value Reference Range Interpretation Comments UA Ketones (test code Negative *NA*(06/20/15 = UA Ketones) 11:22 AM) [facility] AND [id number] 16:22:00 Test Item Value Reference Range Interpretation Comments UA Bili (test code = Negative *NA*(06/20/15 UA Bili) 11:22 AM) [facility] AND [id number] 16:22:00 Test Item Value Reference Range Interpretation Comments UA Color (test code = Yellow *NA*(06/20/15 UA Color) 11:22 AM) [facility] AND [id number] 16:22:00 Test Item Value Reference Range Interpretation Comments UA Turbidity (test code = Clear (06/20/15 11:22 UA Turbidity) AM) [facility] AND [id number] 16:22:00 Test Item Value Reference Range Interpretation Comments UA pH (test code = UA pH) 6.0 1 5.0-8.0 [facility] AND [id number] 16:22:00 Test Item Value Reference Range Interpretation Comments UA Spec Grav (test code = UA Spec 1.010 1 Grav) [facility] AND [id number] 16:22:00 Test Item Value Reference Range Interpretation Comments UA Protein (test code = UA Protein) 30 mg/dL [facility] AND [id number] 16:22:00 Test Item Value Reference Range Interpretation Comments UA Nitrite (test code Negative (06/20/15 11:22 = UA Nitrite) AM) [facility] AND [id number] 16:22:00 Test Item Value Reference Range Interpretation Comments UA Urobilinogen (test code = UA 0.2 0.1-1.0 Urobilinogen) [facility] AND [id number] 16:22:00 Test Item Value Reference Range Interpretation Comments UA Leuk Est (test Negative (06/20/15 11:22 code = UA Leuk Est) AM) [facility] AND [id number] 16:22:00 Test Item Value Reference Range Interpretation Comments UA RBC (test code = 0-2 /HPF See_Comment [Automa nicko message] The UA RBC) system which ge nerated this result tra nsmitted reference range : <=2. The reference range was not used to interpr et this result as adebayo l/abnormal. [facility] AND [id number] 16:22:00 Test Item Value Reference Range Interpretation Comments UA WBC (test code = UA WBC) 0-2 /HPF [facility] AND [id number] 16:22:00 Test Item Value Reference Range Interpretation Comments UA Bacteria (test code = UA Few /HPF Bacteria) [facility] AND [id number] 16:22:00 Test Item Value Reference Range Interpretation Comments UA Sq Epi (test code = UA Sq Epi) Rare /LPF [facility] AND [id number] 16:22:00 Test Item Value Reference Range Interpretation Comments UA Glucose (test code Negative (06/20/15 11:22 = UA Glucose) AM) [facility] AND [id number] 16:22:00 Test Item Value Reference Range Interpretation Comments UA Blood (test code = Negative (06/20/15 11:22 UA Blood) AM) [facility] AND [id number] 16:22:00 Test Item Value Reference Range Interpretation Comments UA Ketones (test code Negative *NA*(06/20/15 = UA Ketones) 11:22 AM) [facility] AND [id number] 16:22:00 Test Item Value Reference Range Interpretation Comments UA Bili (test code = Negative *NA*(06/20/15 UA Bili) 11:22 AM) [facility] [id number] 16:22:00 Test Item Value Reference Range Interpretation Comments UA Color (test code = Yellow *NA*(06/20/15 UA Color) 11:22 AM) [facility] [id number] 16:22:00 Test Item Value Reference Range Interpretation Comments UA Turbidity (test code = Clear (06/20/15 11:22 UA Turbidity) AM) [facility] [id number] 16:22:00 Test Item Value Reference Range Interpretation Comments UA pH (test code = UA pH) 6.0 1 5.0-8.0 [facility] [id number] 16:22:00 Test Item Value Reference Range Interpretation Comments UA Spec Grav (test code = UA Spec 1.010 1 Grav) [facility] [id number] 16:22:00 Test Item Value Reference Range Interpretation Comments UA Protein (test code = UA Protein) 30 mg/dL [facility] [id number] 15:37:00 Test Item Value Reference Range Interpretation Comments CK-MB INDEX (test no gt See_Comment [Automate d message] The code = CK-MB INDEX) system w [facility] generated this result transmit nicko reference range : <=2.5. The reference range was not used to interpr et this result as adebayo l/abnormal. [facility] [id number] 15:37:00 Test Item Value Reference Range Interpretation Comments Total CK (test code = Total CK) 29 12-191 [facility] [id number] 15:37:00 Test Item Value Reference Range Interpretation Comments Troponin-I (test code no gt See_Comment [Auto mated message] The = Troponin-I) system which g enerated this result transmit nicko reference range : <=0.40. The reference r carlos was not used to interpr et this result as adebayo l/abnormal. [facility] [id number] 15:37:00 Test Item Value Reference Range Interpretation Comments CK MB (test code = CK MB) no gt 0.5-3.6 [facility] [id number] 15:37:00 Test Item Value Reference Range Interpretation Comments eGFR (test code = eGFR) [address] [facility]2016-04-20 15:37:00 Test Item Value Reference Range Interpretation Comments A/G Ratio (test code = A/G Ratio) 0.7 0.7-1.[address] [facility]2016-04-20 15:37:00 Test Item Value Reference Range Interpretation Comments B/C Ratio (test code = B/C Ratio) 12 6-[address] [facility]2016-04-20 15:37:00 Test Item Value Reference Range Interpretation Comments Globulin (test code = Globulin) 4.5 2.0-4.[address] [facility]2016-04-20 15:37:00 Test Item Value Reference Range Interpretation Comments ASPARTATE TRANSAMINASE 12 See_Comment [Aut omated message] (test code = ASPARTATE The s ystem which TRANSAMINASE) generated this result transmitted ref erence range: <=37. Th e reference range was not used to interpr et this result as normal/abnormal . [facility]2016-04-20 15:37:00 Test Item Value Reference Range Interpretation Comments AGAP (test code = AGAP) 12.2 10.0-20.[address] [facility]2016-04-20 15:37:00 Test Item Value Reference Range Interpretation Comments Sodium Lvl (test code = Sodium Lvl) 139 135-[address] [facility]2016-04-20 15:37:00 Test Item Value Reference Range Interpretation Comments Potassium Lvl (test code = Potassium 4.2 3.5-5.1 Lvl) [facility]2016-04-20 15:37:00 Test Item Value Reference Range Interpretation Comments BUN (test code = BUN) 29 7-[address] [facility]2016-04-20 15:37:00 Test Item Value Reference Range Interpretation Comments Creatinine Lvl (test code = Creatinine 2.47 0.50-1.40 Lvl) [facility]2016-04-20 15:37:00 Test Item Value Reference Range Interpretation Comments ALANINE AMINOTRANSFERASE 23 See_Comment [A utomated message] (test code = ALANINE The sys tem which AMINOTRANSFERASE) generated this result transmitted ref erence range: <=65. Th e reference range was not used to int erpret this result as normal/abnormal . [facility]2016-04-20 15:37:00 Test Item Value Reference Range Interpretation Comments Total Protein (test code = Total 7.8 6.4-8.4 Protein) [facility]2016-04-20 15:37:00 Test Item Value Reference Range Interpretation Comments Calcium Lvl (test code = Calcium Lvl) 9.0 8.5-10.[address] [facility]2016-04-20 15:37:00 Test Item Value Reference Range Interpretation Comments Bili Total (test code = Bili Total) 0.5 0.2-1.[address] [facility]2016-04-20 15:37:00 Test Item Value Reference Range Interpretation Comments CO2 (test code = CO2) 28 24-[address] [facility]2016-04-20 15:37:00 Test Item Value Reference Range Interpretation Comments Chloride Lvl (test code = Chloride Lvl) 103 95-[address] [facility]2016-04-20 15:37:00 Test Item Value Reference Range Interpretation Comments Glucose Lvl (test code = Glucose Lvl) 134 70-[address] [facility]2016-04-20 15:37:00 Test Item Value Reference Range Interpretation Comments Alk Phos (test code = Alk Phos) 57 39-[address] [facility]2016-04-20 15:37:00 Test Item Value Reference Range Interpretation Comments Albumin Lvl (test code = Albumin Lvl) 3.3 3.5-5.0 [id number] 15:37:00 Test Item Value Reference Range Interpretation Comments Basophils (test code = 0.6 See_Comment [Aut omated message] The Basophils) system which ge nerated this result tra nsmitted reference range : <=1.0. The reference r carlos was not used to int erpret this result as normal/abnormal . [facility] H[id number] 15:37:00 Test Item Value Reference Range Interpretation Comments Lymphocytes (test code = Lymphocytes) 13.7 20.0-40.0 [facility] H[id number] 15:37:00 Test Item Value Reference Range Interpretation Comments Eosinophils (test code = 1.4 See_Comment [A utomated message] The Eosinophils) system which ge nerated this result tra nsmitted reference range : <=4.0. The reference r carlos was not used to int erpret this result as normal/abnormal . [facility] [id number] 15:37:00 Test Item Value Reference Range Interpretation Comments Monocytes (test code = Monocytes) 10.4 2.0-12.0 [facility] H[id number] 15:37:00 Test Item Value Reference Range Interpretation Comments Basophils # (test code 0.1 See_Comment [Aut omated message] The = Basophils #) system which generated this result tra nsmitted reference range : <=0.2. The reference r carlos was not used to int erpret this result as normal/abnormal . [facility] [id number] 15:37:00 Test Item Value Reference Range Interpretation Comments Eosinophils # (test code 0.2 See_Comment [A utomated message] The = Eosinophils #) system whic h generated this result tra nsmitted reference range : <=0.5. The reference r carlos was not used to int erpret this result as normal/abnormal . [facility] H[id number] 15:37:00 Test Item Value Reference Range Interpretation Comments Segs-Bands # (test code = Segs-Bands #) 8.3 1.5-8.1 [facility] H[id number] 15:37:00 Test Item Value Reference Range Interpretation Comments Lymphocytes # (test code = Lymphocytes 1.5 1.0-5.5 #) [facility] H[id number] 15:37:00 Test Item Value Reference Range Interpretation Comments Monocytes # (test code 1.2 See_Comment [Aut omated message] The = Monocytes #) system which generated this result tra nsmitted reference range : <=0.8. The reference r carlos was not used to int erpret this result as normal/abnormal . [facility] H[id number] 15:37:00 Test Item Value Reference Range Interpretation Comments Segs (test code = Segs) 73.9 45.0-75.0 [facility] Hospit[id number] 15:37:00 Test Item Value Reference Range Interpretation Comments MCH (test code = MCH) 28.3 pg 27.0-31.0 [facility]WwlxmcbPBTQSYICLC6049-21-79 15:37:00 Test Item Value Reference Range Interpretation Comments MCV (test code = MCV) 88.6 80.0-94.0 [facility] HospitalOoajqebVOWBTQNOST9670-94-16 15:37:00 Test Item Value Reference Range Interpretation Comments RDW (test code = RDW) 13.4 11.5-14.5 [facility] HospitalWhkmcqmRSSSRECGDB8162-97-87 15:37:00 Test Item Value Reference Range Interpretation Comments MCHC (test code = MCHC) 31.9 32.0-36.0 [facility] HospitalNbpfzmwGBORSPUNFI5995-98-40 15:37:00 Test Item Value Reference Range Interpretation Comments WBC X 10x3 (test code = WBC X 10x3) 11.3 3.7-10.4 [facility] HospitalIkmrxknTSIRLWPVVK3004-47-32 15:37:00 Test Item Value Reference Range Interpretation Comments Hct (test code = Hct) 39.5 42.0-54.0 [facility] HospitalJlgfxvrUFYVZNQISQ2942-40-85 15:37:00 Test Item Value Reference Range Interpretation Comments Hgb (test code = Hgb) 12.6 14.0-18.0 [facility] HospitalXojchfsPKZFVTXWRG7093-83-01 15:37:00 Test Item Value Reference Range Interpretation Comments RBC X 10x6 (test code = RBC X 10x6) 4.46 4.70-6.10 [facility] HospitalUtwznpeUCBEUXOJGC1732-25-51 15:37:00 Test Item Value Reference Range Interpretation Comments Platelet (test code = Platelet) 321 133-450 [facility] HospitalUnkwgpqBCDQWQTTUC0430-84-33 15:37:00 Test Item Value Reference Range Interpretation Comments MPV (test code = MPV) 8.5 7.4-10.4 [facility] HospitalPwqkwhwHSERQNJMOX9884-77-01 15:37:00 Test Item Value Reference Range Interpretation Comments aPTT (test code = aPTT) 32.0 s 22.9-35.8 [facility] HospitalKyxjarmLMPZTSXODY7296-18-97 15:37:00 Test Item Value Reference Range Interpretation Comments INR (test code = INR) 1.00 0.85-1.17 [facility] HospitalHdtuslzMQKMULQKQM1091-70-85 15:37:00 Test Item Value Reference Range Interpretation Comments PROTIME (test code = PROTIME) 13.5 s 12.0-14.7 [facility] [id number] 15:37:00 Test Item Value Reference Range Interpretation Comments CK-MB INDEX (test no gt See_Comment [Automate d message] The code = CK-MB INDEX) system w hich generated this result transmit nicko reference range : <=2.5. The reference range was not used to interpr et this result as adebayo l/abnormal. [employer] [id number] 15:37:00 Test Item Value Reference Range Interpretation Comments Total CK (test code = Total CK) 29 12-191 [facility] [employer] [id number] 15:37:00 Test Item Value Reference Range Interpretation Comments Troponin-I (test code no gt See_Comment [Auto mated message] The = Troponin-I) system which g enerated this result transmit nicko reference range : <=0.40. The reference r carlos was not used to interpr et this result as adebayo l/abnormal. [employer]2016-04-20 15:37:00 Test Item Value Reference Range Interpretation Comments CK MB (test code = CK MB) no gt 0.5-3.6 [employer]2016-04-20 15:37:00 Test Item Value Reference Range Interpretation Comments eGFR (test code = eGFR) 27 [facility] [employer] [id number] 15:37:00 Test Item Value Reference Range Interpretation Comments A/G Ratio (test code = A/G Ratio) 0.7 0.7-1.6 [employer] [id number] 15:37:00 Test Item Value Reference Range Interpretation Comments B/C Ratio (test code = B/C Ratio) 12 6-25 [employer] [id number] 15:37:00 Test Item Value Reference Range Interpretation Comments Globulin (test code = Globulin) 4.5 2.0-4.0 [employer]2016-04-20 15:37:00 Test Item Value Reference Range Interpretation Comments ASPARTATE TRANSAMINASE 12 See_Comment [Aut omated message] (test code = ASPARTATE The s ystem which TRANSAMINASE) generated this result transmitted ref erence range: <=37. Th e reference range was not used to interpr et this result as normal/abnormal . [employer] [id number] 15:37:00 Test Item Value Reference Range Interpretation Comments AGAP (test code = AGAP) 12.2 10.0-20.[address] [facility]2016-04-20 15:37:00 Test Item Value Reference Range Interpretation Comments Sodium Lvl (test code = Sodium Lvl) 139 135-[address] [facility]2016-04-20 15:37:00 Test Item Value Reference Range Interpretation Comments Potassium Lvl (test code = Potassium 4.2 3.5-5.1 Lvl) [facility]2016-04-20 15:37:00 Test Item Value Reference Range Interpretation Comments BUN (test code = BUN) 29 7-[address] [facility]2016-04-20 15:37:00 Test Item Value Reference Range Interpretation Comments Creatinine Lvl (test code = Creatinine 2.47 0.50-1.40 Lvl) [facility]2016-04-20 15:37:00 Test Item Value Reference Range Interpretation Comments ALANINE AMINOTRANSFERASE 23 See_Comment [A utomated message] (test code = ALANINE The sys tem which AMINOTRANSFERASE) generated this result transmitted ref erence range: <=65. Th e reference range was not used to int erpret this result as normal/abnormal . [facility]2016-04-20 15:37:00 Test Item Value Reference Range Interpretation Comments Total Protein (test code = Total 7.8 6.4-8.4 Protein) [facility]2016-04-20 15:37:00 Test Item Value Reference Range Interpretation Comments Calcium Lvl (test code = Calcium Lvl) 9.0 8.5-10.[address] [facility]2016-04-20 15:37:00 Test Item Value Reference Range Interpretation Comments Bili Total (test code = Bili Total) 0.5 0.2-1.[address] [facility]2016-04-20 15:37:00 Test Item Value Reference Range Interpretation Comments CO2 (test code = CO2) 28 24-[address] [facility]2016-04-20 15:37:00 Test Item Value Reference Range Interpretation Comments Chloride Lvl (test code = Chloride Lvl) 103 95-[address] [facility]2016-04-20 15:37:00 Test Item Value Reference Range Interpretation Comments Glucose Lvl (test code = Glucose Lvl) 134 70-[address] [facility]2016-04-20 15:37:00 Test Item Value Reference Range Interpretation Comments Alk Phos (test code = Alk Phos) 57 39-[address] [facility]2016-04-20 15:37:00 Test Item Value Reference Range Interpretation Comments Albumin Lvl (test code = Albumin Lvl) 3.3 3.5-5.0 [facility] HospitalRqgfxsuMFYJKWEVFK3503-12-22 15:37:00 Test Item Value Reference Range Interpretation Comments Basophils (test code = 0.6 See_Comment [Aut omated message] The Basophils) system which ge nerated this result tra nsmitted reference range : <=1.0. The reference r carlos was not used to int erpret this result as normal/abnormal . [facility] HospitalHopoeibADFZJIRJRR5970-76-84 15:37:00 Test Item Value Reference Range Interpretation Comments Lymphocytes (test code = Lymphocytes) 13.7 20.0-40.0 [facility] HospitalPmnfubaIWABEGWVNW0808-14-72 15:37:00 Test Item Value Reference Range Interpretation Comments Eosinophils (test code = 1.4 See_Comment [A utomated message] The Eosinophils) system which ge nerated this result tra nsmitted reference range : <=4.0. The reference r carlos was not used to int erpret this result as normal/abnormal . [facility] HospitalRjaimfcSHJEQOBDWI7435-51-49 15:37:00 Test Item Value Reference Range Interpretation Comments Monocytes (test code = Monocytes) 10.4 2.0-12.0 [facility] HospitalScsgwauOBQTEZVWXI1560-50-48 15:37:00 Test Item Value Reference Range Interpretation Comments Basophils # (test code 0.1 See_Comment [Aut omated message] The = Basophils #) system which generated this result tra nsmitted reference range : <=0.2. The reference r carlos was not used to int erpret this result as normal/abnormal . [facility] HospitalIlnljrsUCRTACZUZD1376-40-74 15:37:00 Test Item Value Reference Range Interpretation Comments Eosinophils # (test code 0.2 See_Comment [A utomated message] The = Eosinophils #) system whic h generated this result tra nsmitted reference range : <=0.5. The reference r carlos was not used to int erpret this result as normal/abnormal . [facility] HospitalGceiojuKWHGYEGYGB1690-81-39 15:37:00 Test Item Value Reference Range Interpretation Comments Segs-Bands # (test code = Segs-Bands #) 8.3 1.5-8.1 [facility] HospitalCfsubowBMTIENHQIO7914-52-51 15:37:00 Test Item Value Reference Range Interpretation Comments Lymphocytes # (test code = Lymphocytes 1.5 1.0-5.5 #) [facility] HospitalEtbvefvZAPCHOHJQA4097-33-14 15:37:00 Test Item Value Reference Range Interpretation Comments Monocytes # (test code 1.2 See_Comment [Aut omated message] The = Monocytes #) system which generated this result tra nsmitted reference range : <=0.8. The reference r carlos was not used to int erpret this result as normal/abnormal . [facility] HospitalNzdotooYKMEDFRSTZ0362-78-18 15:37:00 Test Item Value Reference Range Interpretation Comments Segs (test code = Segs) 73.9 45.0-75.0 [facility] HospitalGonwthpISJIBKLWZT0542-99-38 15:37:00 Test Item Value Reference Range Interpretation Comments MCH (test code = MCH) 28.3 pg 27.0-31.0 [facility] HospitalQoshjacEODSUAPVLF4699-00-55 15:37:00 Test Item Value Reference Range Interpretation Comments MCV (test code = MCV) 88.6 80.0-94.0 [facility] HospitalOxdkeorERDLNSMJIC7079-97-26 15:37:00 Test Item Value Reference Range Interpretation Comments RDW (test code = RDW) 13.4 11.5-14.5 [facility] HospitalAxusethCNHHHTSSSC4373-65-66 15:37:00 Test Item Value Reference Range Interpretation Comments MCHC (test code = MCHC) 31.9 32.0-36.0 [facility] HospitalQizhoicYGFMVTOTNQ6499-73-71 15:37:00 Test Item Value Reference Range Interpretation Comments WBC X 10x3 (test code = WBC X 10x3) 11.3 3.7-10.4 [facility] HospitalTgjvsuhYSEMIXXTFE2218-55-39 15:37:00 Test Item Value Reference Range Interpretation Comments Hct (test code = Hct) 39.5 42.0-54.0 [facility] HospitalDgtttxoNHRDMXMMKI0678-50-54 15:37:00 Test Item Value Reference Range Interpretation Comments Hgb (test code = Hgb) 12.6 14.0-18.0 [facility]EytwisoALLCGFKLMR3934-75-66 15:37:00 Test Item Value Reference Range Interpretation Comments RBC X 10x6 (test code = RBC X 10x6) 4.46 4.70-6.10 [facility] SystemHqtylbbBYQGTXBFEF8216-94-31 15:37:00 Test Item Value Reference Range Interpretation Comments Platelet (test code = Platelet) 321 133-450 [facility] SystemJkpwdlnRNGEGVCNNF9985-00-40 15:37:00 Test Item Value Reference Range Interpretation Comments MPV (test code = MPV) 8.5 7.4-10.4 [facility] SystemHsubpwmEANVNQXBHP2461-67-47 15:37:00 Test Item Value Reference Range Interpretation Comments aPTT (test code = aPTT) 32.0 s 22.9-35.8 [facility] SystemDujhmqpOAEJOFPAXJ1128-39-75 15:37:00 Test Item Value Reference Range Interpretation Comments INR (test code = INR) 1.00 0.85-1.17 [facility] SystemSpfpeuiSQDPPSPRDB2089-68-80 15:37:00 Test Item Value Reference Range Interpretation Comments PROTIME (test code = PROTIME) 13.5 s 12.0-14.7 [facility]woodNanorexLHNPHCW2448-98-53 15:37:00 Test Item Value Reference Range Interpretation Comments CK-MB INDEX (test no gt See_Comment [Automate d message] The code = CK-MB INDEX) system w [facility] generated this result transmit nicko reference range : <=2.5. The reference range was not used to interpr et this result as adebayo l/abnormal. [facility]woodNanorexUXOLPLC8875-79-03 15:37:00 Test Item Value Reference Range Interpretation Comments Total CK (test code = Total CK) 29 12-191 [facility]woodDeep [employer]IDENTEC GROUPNONSBGV9234-89-08 15:37:00 Test Item Value Reference Range Interpretation Comments Troponin-I (test code no gt See_Comment [Auto mated message] The = Troponin-I) system which g enerated this result transmit nicko reference range : <=0.40. The reference r carlos was not used to interpr et this result as adebayo l/abnormal. [facility]DirectPh[employer] [employer] NRTOQFA3015-29-13 15:37:00 Test Item Value Reference Range Interpretation Comments CK MB (test code = CK MB) no gt 0.5-3.[address] [facility]2016-04-20 15:37:00 Test Item Value Reference Range Interpretation Comments eGFR (test code = eGFR) [address] [facility]2016-04-20 15:37:00 Test Item Value Reference Range Interpretation Comments A/G Ratio (test code = A/G Ratio) 0.7 0.7-1.[address] [facility]2016-04-20 15:37:00 Test Item Value Reference Range Interpretation Comments B/C Ratio (test code = B/C Ratio) 12 6-[address] [facility]2016-04-20 15:37:00 Test Item Value Reference Range Interpretation Comments Globulin (test code = Globulin) 4.5 2.0-4.[address] [facility]2016-04-20 15:37:00 Test Item Value Reference Range Interpretation Comments ASPARTATE TRANSAMINASE 12 See_Comment [Aut omated message] (test code = ASPARTATE The s ystem which TRANSAMINASE) generated this result transmitted ref erence range: <=37. Th e reference range was not used to interpr et this result as normal/abnormal . [facility]2016-04-20 15:37:00 Test Item Value Reference Range Interpretation Comments AGAP (test code = AGAP) 12.2 10.0-20.[address] [facility]2016-04-20 15:37:00 Test Item Value Reference Range Interpretation Comments Sodium Lvl (test code = Sodium Lvl) 139 135-[address] [facility]2016-04-20 15:37:00 Test Item Value Reference Range Interpretation Comments Potassium Lvl (test code = Potassium 4.2 3.5-5.1 Lvl) [facility]2016-04-20 15:37:00 Test Item Value Reference Range Interpretation Comments BUN (test code = BUN) 29 7-[address] [facility]2016-04-20 15:37:00 Test Item Value Reference Range Interpretation Comments Creatinine Lvl (test code = Creatinine 2.47 0.50-1.40 Lvl) [facility]2016-04-20 15:37:00 Test Item Value Reference Range Interpretation Comments ALANINE AMINOTRANSFERASE 23 See_Comment [A utomated message] (test code = ALANINE The sys tem which AMINOTRANSFERASE) generated this result transmitted ref erence range: <=65. Th e reference range was not used to int erpret this result as normal/abnormal . [facility]2016-04-20 15:37:00 Test Item Value Reference Range Interpretation Comments Total Protein (test code = Total 7.8 6.4-8.4 Protein) [facility]2016-04-20 15:37:00 Test Item Value Reference Range Interpretation Comments Calcium Lvl (test code = Calcium Lvl) 9.0 8.5-10.[address] [facility]2016-04-20 15:37:00 Test Item Value Reference Range Interpretation Comments Bili Total (test code = Bili Total) 0.5 0.2-1.[address] [facility]2016-04-20 15:37:00 Test Item Value Reference Range Interpretation Comments CO2 (test code = CO2) 28 24-[address] [facility]2016-04-20 15:37:00 Test Item Value Reference Range Interpretation Comments Chloride Lvl (test code = Chloride Lvl) 103 95-[address] [facility]2016-04-20 15:37:00 Test Item Value Reference Range Interpretation Comments Glucose Lvl (test code = Glucose Lvl) 134 70-[address] [facility]2016-04-20 15:37:00 Test Item Value Reference Range Interpretation Comments Alk Phos (test code = Alk Phos) 57 39-[address] [facility]2016-04-20 15:37:00 Test Item Value Reference Range Interpretation Comments Albumin Lvl (test code = Albumin Lvl) 3.3 3.5-5.0 [facility] HospitalZtxajshKEYUVNGMJE3323-07-27 15:37:00 Test Item Value Reference Range Interpretation Comments Basophils (test code = 0.6 See_Comment [Aut omated message] The Basophils) system which ge nerated this result tra nsmitted reference range : <=1.0. The reference r carlos was not used to int erpret this result as normal/abnormal . [facility] HospitalBbieugsUDZSINMGKZ1742-52-25 15:37:00 Test Item Value Reference Range Interpretation Comments Lymphocytes (test code = Lymphocytes) 13.7 20.0-40.0 [facility] HospitalAiijbkgEIXVUUQONF1033-56-19 15:37:00 Test Item Value Reference Range Interpretation Comments Eosinophils (test code = 1.4 See_Comment [A utomated message] The Eosinophils) system which ge nerated this result tra nsmitted reference range : <=4.0. The reference r carlos was not used to int erpret this result as normal/abnormal . [facility] HospitalDaplwcjWSNOZMNCPV1952-38-64 15:37:00 Test Item Value Reference Range Interpretation Comments Monocytes (test code = Monocytes) 10.4 2.0-12.0 [facility] HospitalLaifydtOUWULSFFHN5913-87-35 15:37:00 Test Item Value Reference Range Interpretation Comments Basophils # (test code 0.1 See_Comment [Aut omated message] The = Basophils #) system which generated this result tra nsmitted reference range : <=0.2. The reference r carlos was not used to int erpret this result as normal/abnormal . [facility] HospitalUnwuxuzPYMTBIQRAN2597-40-03 15:37:00 Test Item Value Reference Range Interpretation Comments Eosinophils # (test code 0.2 See_Comment [A utomated message] The = Eosinophils #) system whic h generated this result tra nsmitted reference range : <=0.5. The reference r carlos was not used to int erpret this result as normal/abnormal . [facility] HospitalIwdecnyMMIHVVROWH1852-44-69 15:37:00 Test Item Value Reference Range Interpretation Comments Segs-Bands # (test code = Segs-Bands #) 8.3 1.5-8.1 [facility] HospitalEqasmmwGATFYMLDKY6216-06-13 15:37:00 Test Item Value Reference Range Interpretation Comments Lymphocytes # (test code = Lymphocytes 1.5 1.0-5.5 #) [facility] HospitalZjmptfyQWBWBGJZAV4960-90-70 15:37:00 Test Item Value Reference Range Interpretation Comments Monocytes # (test code 1.2 See_Comment [Aut omated message] The = Monocytes #) system which generated this result tra nsmitted reference range : <=0.8. The reference r carlos was not used to int erpret this result as normal/abnormal . [facility] HospitalZaeuvpzCSFTOQSCLZ2761-06-64 15:37:00 Test Item Value Reference Range Interpretation Comments Segs (test code = Segs) 73.9 45.0-75.0 [facility] HospitalOneebviAHBUZLGTCU6489-60-61 15:37:00 Test Item Value Reference Range Interpretation Comments MCH (test code = MCH) 28.3 pg 27.0-31.0 [facility] HospitalNiumfzhXASDQUDEZV4594-50-65 15:37:00 Test Item Value Reference Range Interpretation Comments MCV (test code = MCV) 88.6 80.0-94.0 [facility] HospitalUwtnlsrBWLTJMWBDC0736-09-91 15:37:00 Test Item Value Reference Range Interpretation Comments RDW (test code = RDW) 13.4 11.5-14.5 [facility] HospitalQgsucywXVEPYNGCEX8983-71-20 15:37:00 Test Item Value Reference Range Interpretation Comments MCHC (test code = MCHC) 31.9 32.0-36.0 [facility] HospitalRxrljwbLYCTYSNIQG4088-19-36 15:37:00 Test Item Value Reference Range Interpretation Comments WBC X 10x3 (test code = WBC X 10x3) 11.3 3.7-10.4 [facility] HospitalYzbagpkONVWXCWEJO6478-22-42 15:37:00 Test Item Value Reference Range Interpretation Comments Hct (test code = Hct) 39.5 42.0-54.0 [facility] HospitalNyzghmeXPIUPHRLHI9342-49-21 15:37:00 Test Item Value Reference Range Interpretation Comments Hgb (test code = Hgb) 12.6 14.0-18.0 [facility] HospitalHhvwmhuQXSWFGFDBW6562-21-75 15:37:00 Test Item Value Reference Range Interpretation Comments RBC X 10x6 (test code = RBC X 10x6) 4.46 4.70-6.10 [facility] HospitalBbcwphxXEXJMURJFM4230-43-06 15:37:00 Test Item Value Reference Range Interpretation Comments Platelet (test code = Platelet) 321 133-450 [facility] HospitalGbqahwgRKBGRTEPXW8923-60-64 15:37:00 Test Item Value Reference Range Interpretation Comments MPV (test code = MPV) 8.5 7.4-10.4 [facility] HospitalRtebgclOXGXUKUTMH2760-56-54 15:37:00 Test Item Value Reference Range Interpretation Comments aPTT (test code = aPTT) 32.0 s 22.9-35.8 [facility] HospitalEftqqbcTLIWTFOHOY9848-34-95 15:37:00 Test Item Value Reference Range Interpretation Comments INR (test code = INR) 1.00 0.85-1.17 [facility] HospitalWmjlhsmMEPYRDIRXU9588-25-82 15:37:00 Test Item Value Reference Range Interpretation Comments PROTIME (test code = PROTIME) 13.5 s 12.0-14.7 [facility] Notes Date/Time Note Provider Source 2021-11-11 Radiation [...] Resolution of previously visualized right upper lobe golf ball marker ior segmental 6 mm pulmonary nodule/nodular focus [...] diverticulosis. Pete Flanagan MD On 11/12/2021 14:21:27; [id number] 2021-11-11 Radiation Dose CTDIVOL = 0 (mGy): DLP = 2293.3 ( mGy-cm) [facility] 08:56:47-00:00 PROCEDURE INFORMATION: Exam: CT Abdomen And [...] from prior EVAR. COMMENTS: Consistent with the [employer] Incidental Findings Committee white paper (J Am Hallie Radiol 2018): Any incidental renal lesion less than 1 cm or classified as too small to characterize, or any incidental cystic renal lesion characterized as simple-karen earing, is likely benign. No follow-up imaging is recommended for t hese lesions per consensus recommendations based on imaging criteria. aMt Sabillon MD On 11/12/2021 09:45:20; JOY [id number] 2021-11-11 Radiation Dose CTDIVOL = 0 (mGy): DLP = 820.51 ( mGy-cm) CLARENCE SANCHEZ [place] 08:56:47-00:00 PROCEDURE INFORMATION: Exam: CT Chest Without [...] Resolution of previously visualized right upper lobe golf ball marker ior segmental 6 mm pulmonary nodule/nodular focus [...] diverticulosis. Pete Flanagan MD On 11/12/2021 14:21:27; [id number] 2021-11-11 Radiation Dose CTDIVOL = 0 (mGy): DLP = 2293.3 ( mGy-cm) LAURA [place] 08:56:47-00:00 PROCEDURE INFORMATION: Exam: CT Abdomen And [...] from prior EVAR. COMMENTS: Consistent with the [employer] [place] [employer]'s Incidental Findings Committee [...] Mat Sabillon MD On 11/12/2021 09:45:20; VR-[id number] 2021-05-09 EXAM: CT CHEST WITHOUT CONTRAST CL[facility]div[facility] 13:04:00-00:00 DATE: 05/09/2021 1309 hours INDICATION: - Z01.818 Encounter for other prepr ocedural examination ADDITIONAL INFORMATION: 66-y ear-old male with [...] abdomen and pelvis described above. 2021-05-09 EXAM: CT CHEST WITHOUT CONTRAST [facility] Zaldivar 13:04:00-00:00 DATE: 05/09/2021 1309 hours INDICATION: [...] * No pleural effusion. No pneumothorax. Mediastinum, eilas and intrat horacic lymph nodes: Stable 0.8 [...] above. 2021-05-09 EXAM: US EXTRACRANIAL ARTERIAL DOPPLER [facility] 10:18:59-00:00 DATE: 05/09/2021 7:57 [facility] INDICATION: Pre-Transplant evaluation for kidney transplant [...] EG, Dion CB, Robinson GL, et. al. 2021-05-09 EXAM: US EXTRACRANIAL ARTERIAL DOPPLER [facility] 10:18:59-00:00 DATE: 05/09/2021 7:57 [facility] INDICATION: Pre-Transplant evaluation for kidney transplant [...] al. 2020-06-09 EXAM: MRA BRAIN WITHOUT CONTRAST [facility] 17:35:00-00:00 DATE: 06/09/2020 Center INDICATION: Aneurysm . [...] saccular aneurysm is identified in this region. 2020-06-09 EXAM: MRA BRAIN WITHOUT CONTRAST [facility] 17:35:00-00:00 DATE: 06/09/2020 Center INDICATION: Aneurysm . [...] EXAM: CT ABDOMEN AND PELVIS WITHOUT CONTRAST [facility] 08:00:00-00:00 DATE: 04/25/2020 7:50 [facility] Center INDICATION: - Iliac Vessels COMPARISON: CT abdomen pelvis without contrast d ated 04/14/2018 TECHNIQUE: Volumetric CT of the abdomen and pelvis acquired without intravenous contrast. Axial, coronal and sagittal images are provided. IV contrast: None. Enteric contrast: None. FINDINGS: Limited evaluation due to lack of intravenous co ntrast. [employer] Alteration: Noncontributory. Lines, tubes and hardware: None. Lower [...] 04/14/2018. 2020-04-25 EXAM: CT CHEST WITHOUT CONTRAST [facility] 08:00:00-00:00 DATE: 04/25/2020 at 8:05 AM [facility] enter INDICATION: - transplant TECHNIQUE: Volumetric [...] the same day for concomitant infradiaphragmatic findings. 2020-04-25 EXAM: CT ABDOMEN AND PELVIS WITHOUT CONTRAST [facility] 08:00:00-00:00 DATE: 04/25/2020 7:50 [facility] Center INDICATION: - Iliac Vessels COMPARISON: CT abdomen pelvis without contrast d ated 04/14/2018 TECHNIQUE: Volumetric CT of the abdomen and pelvis acquired without intravenous contrast. Axial, coronal and sagittal images are provided. IV contrast: None. Enteric contrast: None. FINDINGS: Limited evaluation due to lack of intravenous co ntrast. [employer] Alteration: Noncontributory. Lines, tubes and hardware: None. Lower [...] 04/14/2018. 2020-04-25 EXAM: CT CHEST WITHOUT CONTRAST [facility] 08:00:00-00:00 DATE: 04/25/2020 at 8:05 AM [facility] enter INDICATION: - transplant TECHNIQUE: Volumetric [...] findings. 2019-04-01 EXAM: CT CHEST WITHOUT CONTRAST [facility] 12:37:38-00:00 DATE: 04/01/2019 12:44 [facility] Center INDICATION: - Pre-kidney transplant eval COMPARISON: [...] history of polycystic kidney disease. 2019-04-01 EXAM: CT CHEST WITHOUT CONTRAST [facility] 12:37:38-00:00 DATE: 04/01/2019 12:44 [facility] Center INDICATION: - Pre-kidney transplant eval COMPARISON: [...] kidney disease. 2019-04-01 EXAM: US ABDOMEN COMPLETE [facility] 08:32:00-00:00 DATE: 04/01/2019 0032 [...] and echogenic hepatic parenchyma fav ors steatosis. 2019-04-01 EXAM: US ABDOMEN COMPLETE [facility] 08:32:00-00:00 DATE: 04/01/2019 0032 [...] EXAM: MRA OF THE BRAIN WITHOUT CONTRAST [facility] 16:00:00-00:00 EXAM: MR VENOGRAM OF THE BRAIN [...] IV contrast: None. FINDINGS: MRA of the [place]: Normal flow-related signal i s [...] head ischemic infarction are seen on the [id number] imaging, with likely tiny infarcts throughout the [...] sinuses on MRV without signs of thrombosis. 2018-09-14 EXAM: MRA OF THE BRAIN WITHOUT CONTRAST [facility] 16:00:00-00:00 EXAM: MR VENOGRAM OF THE BRAIN [...] IV contrast: None. FINDINGS: MRA of the [place]: Normal flow-related signal i s [...] head ischemic infarction are seen on the [id number] imaging, with likely tiny infarcts throughout the [...] IMPRESSION: No radiographic findings suggestive of myeloma. 2018-06-30 EXAM: XR BONE SURVEY COMPLETE LAURA [...] myeloma. 2018-05-12 EXAM: US ABDOMEN LIMITED Isacc haider [facility] 09:04:00-00:00 DATE: 05/12/2018 9:04 CDT Center INDICATION: [...] hepatic cysts. 2. No other abnormality identified. 2018-05-12 [facility]AM: [facility] 09:04:00-00:00 DATE: 05/12/2018 9:04 CDT Center INDICATION: [...] EXAM: CT ABDOMEN AND PELVIS WITHOUT CONTRAST [facility] 12:42:00-00:00 DATE: 04/14/2018 12:42 [facility] Center INDICATION: - Iliac Vessels. Prekidney transplan [...] myolipoma. 2018-04-14 EXAM: CT CHEST WITHOUT CONTRAST [facility] 12:42:00-00:00 DATE: 04/14/2018 12:42 [facility] Center INDICATION: transplant eval - transplant eval [...] anterior 6th, 7 th and 8th ribs. 2018-04-14 EXAM: CT ABDOMEN AND PELVIS WITHOUT CONTRAST [facility] 12:42:00-00:00 DATE: 04/14/2018 12:42 [facility] [employer] Center INDICATION: - Iliac Vessels. Prekidney transplan [...] myolipoma. 2018-04-14 EXAM: CT CHEST WITHOUT CONTRAST [facility] 12:42:00-00:00 DATE: 04/14/2018 12:42 [facility] Center INDICATION: transplant eval - transplant eval [...] CT 06/20/2015 TECHNIQUE: Axial images of t he abdomen and pelvis without contrast. Sagittal and [...] Bladder is unremarkable. No free fluid. SL: [id number] 2016-11-03 EXAM: CT abdomen and pelvis Jonathan Zaldivar 12:30:00-00:00 HISTORY: Abdominal aortic aneurysm, malaise COMPARISON: CT 06/20/2015 TECHNIQUE: Axial images of t he abdomen and pelvis without contrast. Sagittal and [...] Bladder is unremarkable. No free fluid. SL: [id number] 2016-11-03 EXAM: Ultrasound abdomen Malia Zaldivar 11:44:00-00:00 [...] normal size. 7. IVC is visualized. SL: [id number] 2016-11-03 EXAM: Ultrasound abdomen Malia Zaldivar 11:44:00-00:00 [...] normal size. 7. IVC is visualized. SL: [id number] 2015-09-10 Clinical Indication: Mass; Madelin trevizo [facility] 15:05:00-00:00 Comparison: None 2 view neck Prominent lingual tonsillar tissues. Normal epiglottis. No subglottic airway narrowing. Prevertebral soft tissues normal. No radiopaque foreign body. IMPRESSION: Suspect lingual tonsillar hypertroph y. SL: [id number] 2015-09-10 Clinical Indication: Mass; Daltonor ial [facility] 15:05:00-00:00 Comparison: None 2 view neck Prominent lingual tonsillar tissues. Normal epiglottis. No subglottic airway narrowing. Prevertebral soft tissues normal. No radiopaque foreign body. IMPRESSION: Suspect lingual tonsillar hypertroph y. SL: [id number] 2015-06-20 Patient Name: ZENIA JIMENES [facility] 13:53:00-00:00 : 1955; Age: 60 years y/o Male MR: [id number] Study: Spine Thoracic wo contrast MRI 06/20/2015 [...] right neural foraminal narrowing at T9-T10. SL: [id number] 2015-06-20 Study: Spine lumbar wo contrast MRI [facility] 13:53:00-00:00 Clinical Indication: Weakness Comparison: CT abdomen [...] stenosis throughout the lumba r spine. SL: [id number] 2015-06-20 Patient Name: ZENIA JIMENES [facility] 13:53:00-00:00 : 1955; Age: 60 years y/o Male MR: [id number] Study: Spine Thoracic wo contrast MRI 06/20/2015 [...] right neural foraminal narrowing at T9-T10. SL: [id number] 2015-06-20 Study: Spine lumbar wo contrast MRI [facility] 13:53:00-00:00 Clinical Indication: Weakness Comparison: CT abdomen [...] stenosis throughout the lumba r spine. SL: [id number] 2015-06-[address] [facility] 11:44:20-00:00 TECHNIQUE: Contiguous transa xial images of [...] CT of the abdomen and pelvis. SL: [id number] 2015-06-[address] [facility] 11:44:20-00:00 TECHNIQUE: Contiguous transa xial images of [...] CT of the abdomen and pelvis. SL: [id number] 2015-06-20 Portable chest: The cardiome diastinal silhouette and pulmonary vasculature are within normal limits. The lungs and pleural spaces are clear. There are no acute osseous abnormalities. There is no significant change compared to 07/06/2013. [facility] 10:23:09-: IMPRESSION: No acute radiographic abnormality in the chest. 13 2015-06-20 Portable chest: The cardiome diastinal silhouette and pulmonary vasculature are within normal limits. The lungs and pleural spaces are clear. There are no acute osseous abnormalities. There is no significant change compared to 07/06/2013. [facility] 10:23:09-:00
--- NOTE | 2022-09-11 14:49 | RAD REPORT ---
EXAM DESCRIPTION: CT - Abdomen Pelvis Wo Contrast - 09/11/2022 2:41 pm CLINICAL HISTORY: Abdominal pain. ABD PAIN COMPARISON: Stone Protocol dated 05/20/2022 TECHNIQUE: CT imaging of the abdomen and pelvis was performed without contrast. Solid organ, bowel a nd vascular assessment is limited due to lack of IV and oral contrast. All CT scans are performed using dose optimization technique as appropriate and may include automated exposure control or mA/KV adjustment according to patient size. FINDINGS: Benign hamartoma noted medial right lung base. Numerous benign liver cysts are present.Spleen is unremarkable. The pancreas adrenal glands are adebayo l. Bilateral polycystic kidneys. No hydronephrosis. No bowel obstruction, free air, free fluid or abscess. The appendix is normal. Aortic stent graft in place. The peritoneal tubing is noted terminating in the right lower quadrant. Significant diverticu losis of the sigmoid colon is seen without diverticulitis findings. The osseous structures are within normal limits. IMPRESSION: Advanced sigmoid diverticulosis coli without diverticulitis. Bilateral polycystic kidneys without hydronephrosis. A limited non-contrast examination was performed as detailed.
--- NOTE | 2022-09-11 15:15 | RAD REPORT ---
EXAM DESCRIPTION: RAD - Chest Single View - 09/11/2022 3:03 pm CLINICAL HISTORY: ABDOMINAL DISTENTION Chest pain. COMPARISON: Chest Single View dated 12/25/2021; Chest Single View dated 09/30/2020; Chest Pa And Lat ( 2 Views) dated 06/15/2020; Chest Single View dated 05/28/2020 FINDINGS: Portable technique limits examination quality. The lungs are grossly clear. The heart is normal in size. No displaced fractures. IMPRESSION: No acute intrathoracic process suspected.
[2022-09-11] MEDS ORDERED: METRONIDAZOLE 500mg IVPB 500 MG/100 ML BAG IV ONE (15:20)
[2022-09-11] MEDS ORDERED: CIPROFLOXACIN 400mg IV 400 MG/200 ML BAG IV ONE (15:20)
[2022-09-11 15:29] LABS: Absolute Lymphocytes (CBC) 1.9 K/uL (0.7-4.9); Hematocrit 39.2 % (39.6-49.0); Lymphocytes % 19.6 % (15.3-44.8); MCV 96.9 fL (80-100); MPV 7.9 fL (7.6-11.3); RBC Red Blood Cell Count 4.05 M/uL (4.33-5.43)
[2022-09-11 15:35] LABS: Protime INR 0.94
[2022-09-11 15:39] LABS: Albumin 2.9 g/dL (3.4-5.0); Bilirubin Total 0.3 mg/dL (0.2-1.0); Potassium 4.4 mEq/L (3.5-5.1); Protein, Total 6.9 g/dL (6.4-8.2)
[2022-09-11 16:30] LABS: Specific Gravity 1.013 (1.005-1.030); Urine Bacteria <20 /HPF (<20); Urine Bilirubin NEGATIVE (Negative); Urine Blood Trace (Negative); Urine Clarity Clear (Clear); Urine Color Light-Yellow (Yellow); Urine Glucose NEGATIVE (Negative); Urine Protein 2+ (Negative); Urine RBC <5 /HPF (None Seen); Urine Urobilinogen Normal (Normal); Urine pH 6.5 (5.0-7.0)
--- NOTE | 2022-09-11 16:36 | ER ---
Nurse's Notes [facility] Name: Stan Jimenes Age: 67 yrs Sex: Male : 1955 Arrival Date: 09/11/2022 Time: 14:05 Bed 17 Private MD: Diagnosis: Diverticulitis of large intestine without perforation or abscess without bleeding Presentation: 09/11 14:08 Chief complaint: Patient states: Lower abdominal pain. Coronavirus screen: Vaccine ll1 status: Patient reports receiving the 2nd dose of the covid vaccine. Client denies travel out of the [place] in the last 14 days. At this time, the client does not indicate any symptoms associated with coronavirus-19. Ebola Screen: Patient denies travel to an Ebola-affected area in the 21 days before illness onset. Initial Sepsis Screen: Does the patient meet any 2 criteria? No. Patient's initial sepsis screen is negative. Does the patient have a suspected source of infection? Yes: Acute abdominal pain. Risk Assessment: Do you want to hurt yourself or someone else? Patient reports no desire to harm self or others. 14:08 Method Of Arrival: Ambulatory ll1 14:08 Acuity: CHAVA 3 ll1 14:24 Onset of symptoms was September 11, 2022. 1 Triage Assessment: 14:09 General: Appears uncomfortable, Behavior is calm, cooperative, appropriate for age. ll1 Pain: Complains of pain in abdomen. Neuro: No deficits noted. Cardiovascular: No deficits noted. GI: Reports lower abdominal pain. 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 - Social history:: Smoking status: Patient denies any tobacco usage or history of. Screenin:23 [facility] ED Fall Risk Assessment (Adult) Score/Fall Risk Level 0 - 2 = Low Risk ll1 Oriented to surroundings, Maintained a safe environment, Educated pt \\T\\ family on fall prevention, incl call for assistance when getting out of bed, Hourly rounding (assess needs \\T\\ fall precautionary measures) done. Abuse screen: Denies threats or abuse. Nutritional screening: No deficits noted. Tuberculosis screening: No symptoms or risk factors identified. Assessment: 17:17 GI: Bowel sounds present X 4 quads. Abd is soft. ap3 Vital Signs: 14:24 BP 174 / 96; Pulse 97; Resp 18; Temp 97.4; Pulse Ox 98% on R/A; Weight 105.23 kg; ll1 Height 6 ft. 2 in. ; Pain 5/10; 15:21 BP 147 / 86; Pulse 77; Pulse Ox 98% on R/A; ap3 16:16 BP 152 / 86; Pulse 76; Pulse Ox 97% on R/A; ap3 14:24 Body Mass Index 29.79 (105.23 kg, 187.96 cm) ll1 14:24 Pain Scale: Adult ll1 ED Course: 14:07 Patient arrived in ED. am2 14:08 Triage completed. ll1 14:08 Arm band placed on. ll1 14:11 Skylar Faust FNP-C is [facility]. snw 14:11 José Miguel Garcia MD is Attending Physician. snw 14:23 Patient placed in an exam room, on a stretcher. ll1 14:30 Ruchi Arguelles, MONA is Primary Nurse. ap3 14:41 CT Abd/Pelvis - Without Contrast In Process Unspecified. EDMS 15:05 Chest Single View XRAY In Process Unspecified. EDMS 15:32 EKG done, by ED staff. sm8 16:16 Urinalysis w/ reflexes Sent. ap3 17:16 No provider procedures requiring assistance completed. IV discontinued, intact, ap3 bleeding controlled, No redness/swelling at site. Pressure dressing applied. 17:17 Patient has correct armband on for positive identification. ap3 17:17 Provided Education on: discharge education. ap3 Administered Medications: 15:15 Drug: fentaNYL (PF) IVP 25 mcg Route: IVP; Site: right antecubital; ap3 16:06 Follow up: Response: No adverse reaction ap3 15:15 Drug: metroNIDAZOLE IVPB 500 mg Volume: 100 ml; Route: IVPB; Rate: 200 ml/hr; Infused ap3 Over: 30 mins; Site: right antecubital; 17:17 Follow up: IV Status: Completed infusion ap3 16:11 Drug: Ciprofloxacin IVPB 400 mg Volume: 100 ml; Route: IVPB; Infused Over: 60 mins; ap3 Site: right antecubital; 16:53 Follow up: IV Status: Completed infusion ap3 16:58 Drug: HYDROcodone-acetaminophen PO 5 mg-325 mg 1 tabs Route: PO; ap3 17:17 Follow up: Response: No adverse reaction; Pain is decreased ap3 16:58 Drug: Dicyclomine PO 20 mg Route: PO; ap3 17:17 Follow up: Response: No adverse reaction; Pain is decreased ap3 Medication: 14:24 VIS not applicable for this client. ll1 Outcome: 16:35 Discharge ordered by . rory 17:16 Discharged to home ambulatory, with family. ap3 17:16 Condition: good 17:16 Discharge instructions given to patient, Instructed on discharge instructions, follow up and referral plans. medication usage, Demonstrated understanding of instructions, follow-up care, medications, Prescriptions given X 3. 17:18 Patient left the ED. ap3 Signatures: Dispatcher [employer] EDMS Skylar Faust, LYNN-C FIRMWARE ENGINEER-Csnw Ruchi Leahy am2 Ruchi Arguelles RN RN ap3 Марина Bowman RN RN ll1 Ruby Kapoor 8
--- NOTE | 2022-09-11 16:36 | EDPHYS ---
Physician Documentation [facility] Name: Stan Jimenes Age: 67 yrs Sex: Male : 1955 Arrival Date: 09/11/2022 Time: 14:05 Bed 17 Private MD: ED Physician José Miguel Garcia HPI: 09/11 16:41 This 67 yrs old Male presents to ER via Ambulatory with complaints of Abdominal Pain - snw low. 16:41 The patient presents with abdominal pain in the left upper quadrant, right lower snw quadrant, in the left lower quadrant. Onset: The symptoms/episode began/occurred acutely, last night. The symptoms are described as crampy. Severity of pain: At its worst the pain was moderate. The patient has experienced a previous episode, dx with UTI. It is unknown whether or not the patient has recently seen a physician. Peritoneal dialysis nightly, no fever. 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 - Social history:: Smoking status: Patient denies any tobacco usage or history of. ROS: 16:38 Constitutional: Negative for fever, chills, and weight loss, Eyes: Negative for injury, snw pain, redness, and discharge, ENT: Negative for injury, pain, and discharge, Neck: Negative for injury, pain, and swelling, Cardiovascular: Negative for chest pain, palpitations, and edema, Respiratory: Negative for shortness of breath, cough, wheezing, and pleuritic chest pain, Back: Negative for injury and pain, : Negative for injury, bleeding, discharge, and swelling, + diff starting stream MS/Extremity: Negative for injury and deformity, Skin: Negative for injury, rash, and discoloration, Neuro: Negative for headache, weakness, numbness, tingling, and seizure, Psych: Negative for depression, anxiety, suicide ideation, homicidal ideation, and hallucinations. 16:38 Abdomen/GI: Positive for abdominal pain, abdominal cramps, of the left upper quadrant, right lower quadrant and left lower quadrant. Exam: 15:52 Constitutional: This is a well developed, well nourished patient who is awake, alert, snw and in no acute distress. Head/Face: Normocephalic, atraumatic. Eyes: Pupils equal round and reactive to light, extra-ocular motions intact. Lids and lashes normal. Conjunctiva and sclera are non-icteric and not injected. Cornea within normal limits. Periorbital areas with no swelling, redness, or edema. ENT: Nares patent. No nasal discharge, no septal abnormalities noted. Tympanic membranes are normal and external auditory canals are clear. Oropharynx with no redness, swelling, or masses, exudates, or evidence of obstruction, uvula midline. Mucous membranes moist. Neck: Trachea midline, no thyromegaly or masses palpated, and no cervical lymphadenopathy. Supple, full range of motion without nuchal rigidity, or vertebral point tenderness. No Meningismus. Chest/axilla: Normal chest wall appearance and motion. Nontender with no deformity. No lesions are appreciated. Cardiovascular: Regular rate and rhythm with a normal S1 and S2. No gallops, murmurs, or rubs. Normal PMI, no JVD. No pulse deficits. Respiratory: Lungs have equal breath sounds bilaterally, clear to auscultation and percussion. No rales, rhonchi or wheezes noted. No increased work of breathing, no retractions or nasal flaring. Back: No spinal tenderness. No costovertebral tenderness. Full range of motion. 15:52 Skin: Warm, dry with normal turgor. Normal color with no rashes, no lesions, and no evidence of cellulitis. MS/ Extremity: Pulses equal, no cyanosis. Neurovascular intact. Full, normal range of motion. Neuro: Awake and alert, GCS 15, oriented to person, place, time, and situation. Cranial nerves II-XII grossly intact. Motor strength 5/5 in all extremities. Sensory grossly intact. Cerebellar exam normal. Normal gait. Psych: Awake, alert, with orientation to person, place and time. Behavior, mood, and affect are within normal limits. 15:52 Abdomen/GI: Inspection: obese Bowel sounds: normal, Palpation: mild abdominal tenderness, moderate abdominal tenderness, in the left upper quadrant, right lower quadrant and left lower quadrant. Vital Signs: 14:24 BP 174 / 96; Pulse 97; Resp 18; Temp 97.4; Pulse Ox 98% on R/A; Weight 105.23 kg; ll1 Height 6 ft. 2 in. ; Pain 5/10; 15:21 BP 147 / 86; Pulse 77; Pulse Ox 98% on R/A; ap3 16:16 BP 152 / 86; Pulse 76; Pulse Ox 97% on R/A; ap3 14:24 Body Mass Index 29.79 (105.23 kg, 187.96 cm) ll1 14:24 Pain Scale: Adult ll1 MDM: 14:20 Patient medically screened. snw 16:36 Differential diagnosis: bowel obstruction, cholecystitis, Cholelithiasis, snw diverticulitis, gastritis, gastroesophageal reflux disease, non-specific abd pain, urinary tract infection. Data reviewed: vital signs, nurses notes, lab test result(s), EKG, radiologic studies. I considered the following discharge prescriptions or medication management in the emergency department Medications were administered in the Emergency Department. See MAR. Care significantly affected by the following chronic conditions: peritoneal dialysis, polycystic kidney disease. Counseling: I had a detailed discussion with the patient and/or guardian regarding: the historical points, exam findings, and any diagnostic results supporting the discharge/admit diagnosis, the presence of at least one elevated blood pressure reading (>120/80) during this emergency department visit, the need for outpatient follow up, for definitive care, to return to the emergency department if symptoms worsen or persist or if there are any questions or concerns that arise at home. Response to treatment: the patient's symptoms have mildly improved after treatment. Special discussion: Based on the patient's Hx, exam, and Dx evaluation, there is no indication for emergent surgery or inpatient Tx. It is understood by the patient/guardian that if the Sx's persist or worsen they need to return immediately for re-evaluation. Based on the history and exam findings, there is no indication for further emergent testing or inpatient evaluation. I discussed with the patient/guardian the need to see the primary care provider for further evaluation of the symptoms. 09/11 14:27 Order name: Blood Culture Adult (2) snw 09/11 14:27 Order name: CBC with Diff; Complete Time: 15:34 snw 09/11 14:27 Order name: CMP; Complete Time: 15:46 snw 09/11 14:27 Order name: Lactate w/ 2H reflex if indic.; Complete Time: 15:46 09/11 14:27 Order name: Protime (+inr); Complete Time: 15:36 09/11 14:27 Order name: Ptt, Activated; Complete Time: 15:36 09/11 14:27 Order name: Urinalysis w/ reflexes; Complete Time: 16:34 09/11 14:27 Order name: Chest Single View XRAY; Complete Time: 15:20 09/11 14:27 Order name: CT Abd/Pelvis - Without Contrast; Complete Time: 14:58 09/11 14:27 Order name: EKG; Complete Time: 14:28 09/11 14:27 Order name: Accucheck; Complete Time: 15:21 09/11 14:27 Order name: Cardiac monitoring; Complete Time: 15:15 09/11 14:27 Order name: EKG - Nurse/Tech; Complete Time: 15:15 09/11 14:27 Order name: IV Saline Lock - Large Bore; Complete Time: 15:15 09/11 14:27 Order name: Labs collected and sent; Complete Time: 15:15 09/11 14:27 Order name: O2 Per Protocol; Complete Time: 14:33 09/11 14:27 Order name: O2 Sat Monitoring; Complete Time: 14:33 09/11 14:27 Order name: Vital Signs; Complete Time: 14:32 snw Administered Medications: 15:15 Drug: fentaNYL (PF) IVP 25 mcg Route: IVP; Site: right antecubital; ap3 16:06 Follow up: Response: No adverse reaction ap3 15:15 Drug: metroNIDAZOLE IVPB 500 mg Volume: 100 ml; Route: IVPB; Rate: 200 ml/hr; Infused ap3 Over: 30 mins; Site: right antecubital; 17:17 Follow up: IV Status: Completed infusion ap3 16:11 Drug: Ciprofloxacin IVPB 400 mg Volume: 100 ml; Route: IVPB; Infused Over: 60 mins; ap3 Site: right antecubital; 16:53 Follow up: IV Status: Completed infusion ap3 16:58 Drug: HYDROcodone-acetaminophen PO 5 mg-325 mg 1 tabs Route: PO; ap3 17:17 Follow up: Response: No adverse reaction; Pain is decreased ap3 16:58 Drug: Dicyclomine PO 20 mg Route: PO; ap3 17:17 Follow up: Response: No adverse reaction; Pain is decreased ap3 Disposition: 20:31 Co-signature as Attending Physician, José Miguel Garcia MD I reviewed the patient's care rt provided by the Advanced Practice Provider and agree with the diagnosis and treatment plan. Disposition Summary: 09/11/22 16:35 Discharge Ordered Location: Home snw Condition: Stable snw Diagnosis - Diverticulitis of large intestine without perforation or abscess without bleeding snw Followup: snw - With: Emergency Department - When: As needed - Reason: Worsening of condition Followup: snw - With: Private Physician - When: 2 - 3 days - Reason: Recheck today's complaints, Continuance of care, Re-evaluation by your physician Discharge Instructions: - Discharge Summary Sheet snw - High-Fiber Eating Plan snw - Diverticulitis snw Forms: - Medication Reconciliation Form snw - Thank You Letter snw - Antibiotic Education snw - Prescription Opioid Use snw - Patient Portal Instructions snw Prescriptions: - Cipro 250 mg Oral Tablet - take 1 tablet by ORAL route every 24 hours for 10 days; 10 tablet; Refills: 0, snw Product Selection Permitted - Flagyl 500 mg Oral Tablet - take 1 tablet by ORAL route 2 times per day for 10 days; 20 tablet; Refills: 0, snw Product Selection Permitted - Tramadol 50 mg Oral Tablet - take 1 tablet by ORAL route every 12 hours as needed; 12 tablet; Refills: 0, snw Product Selection Permitted Signatures: Dispatcher [employer] EDSkylar Fong, LYNN-[employer] OPERATIONS SECTION MANAGER-Cs[employer] Ruchi Arguelles RN RN ap3 Марина Bowman RN RN ll1 José Miguel Garcia MD MD rt
[2022-09-11] MEDS ORDERED: DICYCLOMINE HCL 10 MG CAP ONE (17:06)
[2022-09-11] MEDS ORDERED: HYDROCODONE/APAP 5/325 MG TAB ONE (17:06)
[2022-09-11 17:38] VITALS: TEMP 97.4
[2022-09-11 17:40] VITALS: BP 152/86; O2SAT 97
--- NOTE | 2022-09-12 12:50 | EKG ---
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
== END 2022-09-11 17:18 | disposition home or self-care (01) ==
LOC: ER 14:05
DX: K57.32 Diverticulitis of large intestine without perforation or abscess without bleeding (principal); Z91.048 Other nonmedicinal substance allergy status
CPT/HCPCS: 96365; 93005; 87040 ×2; 85025; 81001; 36415; 85610; 83605; 85730; 80053; 74176; 71045; 96375; 99284; J3010; J0744

== ENCOUNTER 2022-10-14 10:45 | Inpatient (IN) | payer OTHER ==
--- OUTSIDE RECORDS SUMMARY | 2022-10-14 11:31 | XMS REPORT | Continuity of Care Document ---
:1955 Author Organization [facility] t Address [address] [facility] [address] [place] [address] Care Team Providers Name Role Phone LEANDRA SALGADO Primary Care Physician Unavailable DAYANA ALFREDO Attending Clinician Unavailable CAMELIA HENSLEY Attending Clinician Unavailable SILVINO COSME Attending Clinician Unavailable BRITTNI NEWBERRY Attending Clinician Unavailable Brittni Newberry Attending Clinician Dayana Alfredo Jr Attending Clinician UNKNOWN, ATTENDING Attending Clinician Unavailable Unknown, Attending Attending Clinician Unavailable MASON ELLIOTT Attending Clinician Unavailable DR ALBINA WILKINS Attending Clinician Unavailable Silvino Cosme Attending Clinician ELENA TEIXEIRA Attending Clinician Unavailable Elena Teixeira Attending Clinician [phone] IDA MILNER Attending Clinician Unavailable Ida Milner Attending Clinician Ciro Toro Attending Clinician Gus Jackson MD Attending Clinician Maged ARCOS, Ke Burnette Attending Clinician [phone] Giancarlo Mansfield MD Attending Clinician Jeronimo ARCOS, Jaret Valle Attending Clinician [phone] Lisa ARCOS, David Attending Clinician Julia Clements DO Attending Clinician Dylon Krishnamurthy CRNA Attending Clinician [phone] CAMELIA HENSLEY Attending Clinician Unavailable Camelia Hensley Attending Clinician Elena Teixeira MD Attending Clinician [phone] CHICO MCARTHUR Attending Clinician Unavailable Chico Mcarthur Attending Clinician Mai ARCOS, Maryan Zuleta Attending Clinician Jeremy Cool MD Attending Clinician Chico Mcarthur MD Attending Clinician Dominique Nelson MD Attending Clinician Brittni Del Valle DO Attending Clinician [phone] Jazmyn Torres MD Attending Clinician Julina Rivero MD Attending Clinician Isabelle Wetzel MD Attending Clinician Violette Azul Attending Clinician Abbi Mccain MA Attending Clinician Unavailable Constantin Aquino MD Attending Clinician Treva ARCOS, Serge Hillman Attending Clinician [phone] Ollie Rolle MD Attending Clinician KATEY LASSITER [...] Admitting Clinician Unavailable Elena Teixeira Admitting Clinician [phone] Elena Teixeira MD Admitting Clinician JEREMY COOL Admitting Clinician Unavailable JAZMYN TORRES Admitting Clinician Unavailable DOMINIQUE NELSON Admitting Clinician Unavailable KATEY LASSITER Admitting Clinician Unavailable Payers Payer Name Policy Type Policy Number Effective Date Expiration Date S ravinder [employer]ET[employer] CHOICE POS II [id number] 2017 00:00:00 MEDICARE PART A \\T\\ [id number] 2017 B 00:00:00 [employer] COMMERCIAL [id number] 2020 OUT OF NETWORK 00:00:00 [id number] 1959 00:00:00 [id number] 1961 00:00:00 Problems Condition Condition Condition Status Onset Resolution Last Treating Co mments Source Name Details Category Date Date Treatment Clinician Date PA RENAL PA RENAL Diagnosis Active 2022-10-10 Memoria ACCT FOR ACCT FOR 09-11 12:35:00 l F/C NOTES F/C NOTES 06:00: Herm nora ONLY ONLY 00 Active 09/11/2022 [facility] HLA LABS HLA LABS Diagnosis Active 2022-09-10 Memoria Active 09-09 14:47:00 l 09/09/2022 00:00: Oni gutierrez [address] End stage End stage Diagnosis Active 2022-09-01 Memoria renal renal 08-01 06:38:39 l disease disease 00:00: Zen (disorder) (disorder) 00 Active 08/01/2022 Diagnosis 09/01/2022 [facility] LABS LABS Diagnosis Active 2022-09-11 Mem oria Active 07-31 15:16:00 l 07/31/2022 11:00: Oni gutierrez [address] HLA LABS HLA LABS Diagnosis Active 2022-09-12 Memoria ONLY ONLY 07-02 09:08:00 l Active 00:00: Zen 07/02/2022 00 [facility] PRE-RENAL PRE-RENAL Diagnosis Active 2022-06-17 Memoria LISTED LISTED 06-11 15:07:00 l UPDATE UPDATE 11:00: Zen Active 00 06/11/2022 [facility] Urinary Urinary Disease Active [place] frequency frequency 3-05 Heal th 00:00: 00 LABS ONLY LABS ONLY Diagnosis Active 2022-04-11 Memoria Active 04-09 12:34:00 l 04/09/2022 11:00: Oni gutierrez [address] Glycosuria Glycosuria Disease Active [facility] T 8-29 Health 00:00: 00 Lung Lung Disease Active [facility] nodules nodules 829 Health 00:00: 00 LISTED LISTED Diagnosis Active 2021-09-25 Me moria UPDATE UPDATE 09-06 07:35:00 l Active 00:00: Zen 09/06/2021 00 [facility] OPEN OPEN Diagnosis Active 2021-07-12 Mem oria ENCOUNTER ENCOUNTER 06-07 13:02:00 l Active 00:00: Zen 06/07/2021 00 [facility] REPEAT REPEAT Diagnosis Active 2021-11-12 Nh tammie TSPOT TSPOT 4- 09:11:00 l Active 00:00: Zen 06/07/2021 00 [facility] Vitamin D Vitamin D Disease Active [place] deficiency deficiency 04-29 He alth , , 00:00: unspecifie unspecifie 00 d d Other Other Disease Active [facility] fatigue fatigue 04-29 Health 00:00: 00 LISTED LISTED Diagnosis Active 2021-04-08 Me cho UPDATE UPDATE 04-04 12:02:00 l VISIT VISIT 00:00: Zen Active 00 04/04/2021 [facility] MGUS EVAL MGUS EVAL Diagnosis Active 2021-02-06 Memoria Active 11-27 09:09:00 l 11/27/2020 00:00: Oni gutierrez [address] 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 10-22 He alth sm sm 00:00: 00 Weakness Weakness Disease Active [facility] 00:00: Hospita 00 l SHINGLES SHINGLES Diagnosis Active 2020-12-27 Memoria #2 AND #2 AND 6-16 11:20:00 l PNEUMOVAX PNEUMOVAX 00:00: Herm nora Active 00 08/15/2020 [facility] Night-time Problem Active 2021-07-24 M emoria intermitte Night-time 6 07:01:40 l nt intermitte 00:00: Oni [...] Diagnosis Active 2020-06-14 Mem oria STRONGYLOI STRONGYLOI - 07:11:00 l JAYESH JAYESH Active 00:00: Oni gutierrez 06/13/2020 00 [facility] PRE-TRANSP PRE-TRANS Diagnosis Active 2020-07-02 Memshannon LANT EVAL PLANT EVAL 05-30 09:01:00 l FOR KIDNEY FOR KIDNEY 00:00: Ld shah TRANSPLAN TRANSPLAN 00 Active 05/30/2020 [facility] N18.9 - N18.9 - Diagnosis Active 2020-05-13 Memoria CHRONIC CHRONIC 2-10 15:13:00 l KIDNEY KIDNEY 00:01: Zen DISEASE, DISEASE, 00 UNSPEC N UNSPEC N Active 04/11/2020 [facility] NON LISTED NON Diagnosis Active 2020-04-25 Memoria UPDATE LISTED 03-16 08:24:00 l UPDATE 00:00: Zen Active 00 03/16/2020 [facility] ESRD ESRD Diagnosis Active 2020-04-25 Mem oria Active 03-16 12:53:00 l 03/16/2020 00:00: Oni gutierrez [address] HLA MAIL HLA MAIL Diagnosis Active 2020-03-15 Memoria IN LABS IN LABS 11-20 16:33:00 l Active 00:00: Zen 11/21/2019 [facility] History of History of Disease Active U T multiple multiple 10-23 Health pulmonary pulmonary 00:00: nodules nodules 00 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, ion, 10-23 Health testicular testicular 00:00: 00 Aneurysm Aneurysm Disease Active 2019- [facility] 10-23 Health 00:00: 00 Erectile Erectile Disease Active [place] dysfunctio dysfunctio 10-23 He alth n n 00:00: 00 Z01.818 - Z01.818 - Diagnosis Active 2019-10-14 Memoria ENCOUNTER ENCOUNTER 09-05 07:56:00 l FOR OTHER FOR OTHER 00:01: Herm nora PREPROCEDU PREPROCEDU 00 Active 09/06/2019 LAURA Zaldivar NEW NEW Diagnosis Active 2020-03-01 Mem oria ENCOUNTER ENCOUNTER 07-21 05:58:00 l CREATED CREATED 00:00: [place] Active 00 07/22/2019 [facility] LABH LABH Diagnosis Active 2019-05-13 Mem oria Active 05-08 08:44:00 l 05/09/2019 11:00: Oni gutierrez [address] F/U F/U Diagnosis Active 2019-04-01 Mem oria Active 03-17 09:26:00 l 03/17/2019 00:00: Oni gutierrez [address] FOLLOW UP FOLLOW Diagnosis Active 2019-04-04 Memoria UP Active 03-08 07:14:00 l 03/08/2019 00:00: Oni gutierrez [address] D47.2 - D47.2 - Diagnosis Active 2019-05-19 Memoria MONOCLONAL MONOCLONAL 06-25 13:49:00 l GAMMOPATHY GAMMOPATHY 00:01: Ld almanzarann Active 00 06/25/2018 LAURA Zaldivar CKD 9 CKD 9 Diagnosis Active 2018-05-12 Mem oria CHRONIC CHRONIC 04-23 09:07:00 l KIDNEY KIDNEY 00:00: Zen DISEASE DISEASE 00 Active 04/23/2018 [facility] ELEVATED ELEVATED Diagnosis Active 2018-10-20 Memoria GAMMA GAMMA 04-22 12:47:00 l GLOBULIN/ GLOBULIN/ 00:00: Joseph melendez PRE PRE 00 -KIDNEY -KIDNEY WOR WOR Active 04/22/2018 [facility] KIDNEY/DO KIDNEY/DO Diagnosis Active 2022-05-14 Memoria NOT USE NOT USE 04-06 11:35:00 l FOR FOR 06:00: Zen CHARGES CHARGES 00 F/C NOTES F/C NOTES Active 04/06/2018 [facility] ESRD EVAL ESRD EVAL Diagnosis Active 2018-07-23 Memoria Active 2- 08:22:00 l 04/05/2018 00:00: Oni gutierrez [address] NEW NEW Diagnosis Active 2018-04-26 Dalton oria EVALUATION EVALUATION 03-18 14:53:00 l Active 00:00: Zen 03/18/2018 00 [facility] Z87.891 - Z87.891 - Diagnosis Active 2017-10-24 Memoria PERSONAL PERSONAL 7- 15:42:00 l HISTORY OF HISTORY OF 00:01: He rmann NICOTINE D NICOTINE D 00 Active 09/08/2017 [facility] [place] WEAKNESS WEAKNESS Diagnosis Active 2016-11-03 Memoria Active 11-03 10:50:00 l 11/03/2016 00:00: Oni n [facility] 00 Zen THROAT THROAT Diagnosis Active 2015-09-10 Nh moria PAIN PAIN 09-09 14:15:00 l Active 00:00: Zen 09/10/[address] [facility] [place] CHEST PAIN CHEST Diagnosis Active 2015-06-20 [facility] PAIN 06-18 10:33:00 l Active 00:00: [place] 06/19/[address] [facility] Zen History of History Problem Active 2021-07-24 Memoria - aortic of - 05-31 07:01:40 l aneurysm aortic 00:00: 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 06/01/2015 Problem 07/24/2021 had repair [facility] 491.20 - 491.20 - Diagnosis Active 2013-10-21 Memoria OBST CHR OBST CHR 7- 10:38:00 l BRONC BRONC 00:01: [place] Active 09/10/2012 [facility] History of History [...] 2021-07-24 Memoria (disorder) (disorder) 07:01:40 l Active [place] Problem 07/24/2021 [facility] Gastroesop Gastroeso Problem Active 2021-12-09 Memoria hageal phageal 23:34:32 l reflux reflux Zen disease disease (disorder) (disorder) Active Problem 12/09/2021 Data migrated from [employer] on 07/29/14. Medical Group,[facility] ,[facility], Diana Xavier, LAURA XavierM [facility] Final: Final: Problem 2015-06-23 Jonathan kayden Weakness Weakness 04:12:43 l 06/23/2015 Oni gutierrez [place] Final: Final: Problem 2015-06-23 Jonathan kayden Abdominal Abdominal 04:12:43 l aortic aortic [place] aneurysm, aneurysm, without without rupture rupture 06/23/2015 [...] n (disorder) (disorder) Resolved Problem 12/09/2021 Medical Group,[facility], [place]M LAURA Zaldivar, LAURA XavierM [facility] Diabetic Diabetic Problem Resolve 2021-12-09 Memoria neuropathy neuropathy d 23:34:32 l (disorder) (disorder) He rmann Resolved Problem 12/09/2021 Medical Group,[facility], LAURA Zaldivar, LAURA Xavier Hyperchole Problem Active 2021-12-09 M emoria sterolemia Hyperchole 23:34:32 l (disorder) sterolemia He rmann (disorder) Active Problem 12/09/2021 Data migrated from [employer] on 07/29/14. Medical Group,[facility] ,[facility], Diana Xavier LAURA Zaldivar, LAURA Xavier,M [facility] Swallowing Swallowin Problem Active 2021-07-24 Memoria painful g painful 07:01:40 l (finding) (finding) Herm nora Active Problem 07/24/2021 [facility] Obstructiv Obstructi Problem Active 2021-07-24 Memoria e sleep ve sleep 07:01:40 l apnea apnea [place] syndrome syndrome (disorder) (disorder) Active Problem 07/24/2021 Has CPAP does not use [facility] Essential Essential Problem Active 2021-12-09 Memoria hypertensi hypertensi 23:34:32 l on on Zen (disorder) (disorder) Active Problem 12/09/2021 Data migrated from [email or web address] on 07/29/14. Medical Group,[facility], Diana Xavier, LAURA XavierM [facility] Hypogonadi Hypogonad Problem Active 2021-12-09 Memoria sm ism 23:34:32 l (disorder) (disorder) He rmann Active Problem 12/09/2021 Data migrated from [employer] on 07/29/14. 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 07:01:40 l kidney kidney [place] disease disease (disorder) (disorder) Active Problem 07/24/2021 pt is on PD every night [facility] ABDOMINAL Diagnosis Active 2019-04-01 Memoria DISTENSION ABDOMINAL 09:26:00 l (GASEOUS) DISTENSION Her sarmiento (GASEOUS) Active [facility] ENCOUNTER ENCOUNTER Diagnosis Active 2019-05-13 Memoria FOR FOR 08:44:00 l PREPROCEDU PREPROCEDU He alyssa RAL RAL LABORATORY LABORATORY E E Active [facility] Ulcer of Ulcer of Problem Active 2021-07-24 Memoria esophagus esophagus 07:01:40 l (disorder) (disorder) He rmann Active Problem 07/24/2021 [facility] OTHER OTHER Diagnosis Active 2020-07-02 Mem oria SPECIFIED SPECIFIED 09:01:00 l 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 Active [facility] N48.6 - N48.6 - Diagnosis Active 2021-05-09 Memoria INDURATION INDURATION 13:11:00 l PENIS PENIS [place] PLASTICA PLASTICA Active LAURA Zaldivar Z87.898 - Z87.898 - Diagnosis Active 2021-11-11 Memoria PERSONAL PERSONAL 08:45:00 l HISTORY OF HISTORY OF He rmann OTHER SPEC OTHER SPEC Active LAURA Xavier CHRONIC CHRONIC Diagnosis Active 2018-05-12 Memoria KIDNEY KIDNEY 09:07:00 l DISEASE, DISEASE, Oni n UNSPECIFIE UNSPECIFIE D D Active [facility] ENCOUNTER ENCOUNTER Diagnosis Active 2018-05-12 Memoria FOR OTHER FOR OTHER 09:07:00 l PREPROCEDU PREPROCEDU He rmann RAL EXAMIN RAL EXAMIN Active [facility] Constipati Problem Active 2021-07-24 M emoria on Constipati 07:01:40 l (disorder) on Oni n (disorder) Active Problem 07/24/2021 [facility] Antibiotic Antibioti Problem Active 2022-10-11 Memoria prophylaxi c 07:40:23 l s prophylaxi Oni n indicated s (context-d indicated ependent (context-d category) ependent category) Active Problem 10/11/2022 Medical Group,[facility], LAURA Zaldivar, LAURA Xavier,M [facility] Arthritis Arthritis Problem Active 2022-10-11 Memoria (disorder) (disorder) 07:40:23 l Active [place] Problem 10/11/2022 Medical Group,[facility], LAURA Zaldivar, LAURA Xavier,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 Active Problem 10/11/2022 Medical Group,[facility], LAURA Zaldivar, LAURA Xavier,[facility] Benign Benign Problem Active 2022-10-11 Jonathan kayden prostatic prostatic 07:40:23 l hyperplasi hyperplasi He rmann a a (disorder) (disorder) Active Problem 10/11/2022 Medical Group,[facility] ,[facility], LAURA Zaldivar, LAURA Xavier,[facility] Bladder Bladder Problem Active 2022-10-11 [facility] dysfunctio dysfunctio 07:40:23 l n n [place] (finding) (finding) Active Problem 10/11/2022 Medical Group,[facility], LAURA Zaldivar, LAURA Xavier,[facility] Blood Blood Problem Active 2022-10-11 Memor ia coagulatio coagulatio 07:40:23 l n disorder n disorder He rmann (disorder) (disorder) Active Problem 10/11/2022 Medical Group,[facility], LAURA Zaldivar, LAURA Xavier,[facility] Chronic Chronic Problem Active 2022-10-11 Nh moria kidney kidney 07:40:23 l disease disease [place] (disorder) (disorder) Active Problem 10/11/2022 Medical Group,[facility], LAURA Zaldivar, LAURA Xavier,[facility] Chronic [facility] 07:40:23 l e lung e lung [place] disease disease (disorder) (disorder) Active Problem 10/11/2022 Medical Group,[facility], [place],[facility] LAURA basilio, LAURA Zaldivar, LAURA Xavier,[facility] Inflammato Inflammat Problem Active 2022-10-11 Memoria ry disease ory 07:40:23 l of liver disease of Herm nora (disorder) liver (disorder) Active Problem 10/11/2022 Medical Group,[facility], LAURA Zaldivar, LAURA Xavier,[facility] Low Low Problem Active 2022-10-11 Memor ia compliance compliance 07:40:23 l bladder bladder [place] (disorder) (disorder) Active Problem 10/11/2022 Medical Group,[facility], LAURA Zaldivar, LAURA Xavier,[facility] Microscopi Problem Active 2022-10-11 [facility] Microscopi 07:40:23 l hematuria c Zen (disorder) hematuria (disorder) Active Problem 10/11/2022 Medical Group,[facility], LAURA Zaldivar,[facility] Morbid Morbid Problem Active 2022-10-11 Jonathan kayden obesity obesity 07:40:23 l (disorder) (disorder) He rmann Active Problem 10/11/2022 Medical Group,[facility], LAURA Zaldivar, LAURA Xavier,[facility] Patient Patient Problem Active 2022-10-11 Nh moria encounter encounter 07:40:23 l status status Zen (finding) (finding) Active Problem 10/11/2022 [facility], LAURA Zaldivar, LAURA Xavier,[facility] Proteinuri Proteinur Problem Active 2022-10-11 Memoria a ia 07:40:23 l (finding) (finding) Herm nora Active Problem 10/11/2022 [facility] Group,[facility], LAURA Zaldivar,[facility] Gout Gout Problem Active 2015-06-23 2021-12-09 M naya (disorder) (disorder) - 04:12:43 23:34:32 l Active 05:00: [place] Problem 00 12/09/2021 Data migrated from [email or web address] on 07/29/14. Medical [facility] ,[facility],Diana Mackey,Diana Escobar [facility] [...] Hypomagnes 11-03 00:37:30 00:37:30 l emia 05:00: Zen 11/03/201611/06/2016 [facility] Weakness Weakness Problem 2016-11-06 2016-11-06 Memoria 11/03/201611-03 00:37:30 00:37:30 l 11/06/2016 05:00: Oni n 00 [place] Other Other Problem 2016-11-06 2016-11-06 M emoria disorders disorders 11-03 00:37:30 00:37:30 l of of 05:00: [place] phosphorus phosphorus 00 metabolism metabolism 11/03/2016 11/06/2016 [facility] Discharge Discharge Problem 2015-09-13 [facility]: Diagnosis: 09-09 03:04:21 03:04:21 l Sore Sore 05:00: Zen throat throat 00 09/10/2015 09/13/2015 [facility] Discharge Discharge Problem 2015-09-13 2015[facility]09[facility]: Diagnosis: 09-09 03:04:21 03:04:21 l Foreign Foreign 05:00: Zen body (FB) body (FB) 00 in soft in soft tissue tissue (Throat) (Throat) 09/10/2015 6 [facility] Discharge Discharge Problem 2015-06-23 2015[facility]: Diagnosis: 06-19 04:12:43 04:12:43 l Weakness Weakness 05:00: Oni n 06/20/2015 6 [facility] Discharge Discharge Problem 2015-06-232015-06-23 Malia Diagnosis: Diagnosis: 4-20 04:12:43 04:12:43 l Chronic Chronic 05:00: [place] back pain back pain 00 06/20/2015 6 [facility] Discharge Discharge Problem 2015-2015-06-23 2015-06-23 Malia Diagnosis: Diagnosis: 4-20 04:12:43 04:12:43 l History of History of 05:00: He rmann AAA AAA 00 (abdominal (abdominal aortic aortic aneurysm) aneurysm) repair repair 06/20/2015 06/23/2015 [facility] Allergies, Adverse Reactions, Alerts Allergy Allergy Status Severity Reaction(s) Onset Inactive Treating Comm ents Source Name Type Date Date Clinician No Known DA Active [facility] ([facility] V/SA) NO KNOWN Drug Active [facility] ALLERGIE Class ity of [facility] No Known No Known Active Memori a Medicati Medicati l on on Zen Allergie Allergie s s Family History Family Member Diagnosis Comments Start Date Stop Date Source Natural mother No Known Problems [facility] Natural father Kidney disease Method [facility] Natural father Polycystic kidney [facility] disease Father Family history of End [facility] stage renal disease Father Family history of [facility] Kidney transplant recipient Father Family history of [facility] Polycystic kidney Social History Social Habit Start Date Stop Date Quantity Comments Source Gender identity [facility] Sexual orientation [facility] History of tobacco Current sm[facility] use Exposure to 2022-06-16 2022-06-26 Not sure University of SARS-CoV-2 (event) 00:00:00 16:36:00 [facility] History of Social [address] function 00:00:00 00:00:00 Hospital Alcohol intake 2021-05-24 2021-05-24 Current drinker [facility] dist 00:00:00 00:00:00 of alcohol Hospital (finding) Alcohol Comment 2020-07-20 2020-07-20 less than [facility] 00:00:00 00:00:00 monthly Hospital Cigarettes smoked 2020-07-20 2020-07-[address] current (pack per 00:00:00 00:00:00 Hospita l day) - Reported Cigarette 2020-07-20 2020-07-20 [facility] pack-years 00:00:00 00:00:00 Hospital Tobacco use and 2020-07-20 2020-07-20 Smokeless [facility] exposure 00:00:00 00:00:00 tobacco non-user [facility] Social History 2020-06-14 2020-06-14 [facility] araselinora 13:01:46 13:01:46 Sex [birth year] At [birth year] [facility] 00:00:00 00:00:00 Hospital Smoking Status Start Date Stop Date Source Tobacco smoking [facility] consumption unknown Medical [facility] Social History [facility] Tobacco smoking status 2021-07-02 18:32:37 2021-07-02 Memor ial [place] 18:32:37 Medications Ordered Filled Start Stop Current Ordering Indication Dosage Frequency Signature Comments Components Source Medication Medication Date Date Medication? Clinician (SIG) Name Name calcitriol Yes 0.5 Memoria 0.5 mcg 4-18 microgram l oral 15:52: = 1 cap, [place] capsule 00 PO, Every Other Day gabapentin 0 Yes 100 mg = 1 M emoria 100 mg oral 4-18 cap, PO, l capsule 15:52: TID, Zen 00 DIRECTED hydrALAZINE 0 Yes 25 mg = 1 M emoria 25 mg oral 4-18 tab, PO, l tablet 15:52: TID [place] 00 Potassium 2022-0 Yes 20 mEq = 1 Me moria Chloride 4-18 tab, PO, l (Eqv-K-Tab) 15:52: Daily Mehreen nn 20 mEq oral 00 tablet, extended release calcitriol Yes 0.5 Memoria 0.5 mcg 4-18 microgram l oral 15:52: = 1 cap, [place] capsule 00 PO, Every Other Day gabapentin 2022-0 Yes 100 mg = 1 M emoria 100 mg oral 4-18 cap, PO, l capsule 15:52: TID, Zen 00 DIRECTED hydrALAZINE 2022-0 Yes 25 mg = 1 M emoria 25 mg oral 4-18 tab, PO, l tablet 15:52: TID [place] 00 Potassium 2022-0 Yes 20 mEq = 1 Me moria Chloride 4-18 tab, PO, l (Eqv-K-Tab) 15:52: Daily Mehreen nn 20 mEq oral 00 tablet, extended release calcitriol 2022-0 Yes 0.5 Memoria 0.5 mcg 4-18 microgram l oral 15:52: = 1 cap, [place] capsule 00 PO, Every Other Day gabapentin 2022-0 Yes 100 mg = 1 M emoria 100 mg oral 4-18 cap, PO, l capsule 15:52: TID, Zen 00 DIRECTED hydrALAZINE 2022-0 Yes 25 mg = 1 M emoria 25 mg oral 4-18 tab, PO, l tablet 15:52: TID Potassium 2022-0 Yes 20 mEq = 1 Me moria Chloride 4-18 tab, PO, l (Eqv-K-Tab) 15:52: Daily Mehreen nn 20 mEq oral 00 tablet, extended release allopurinol 2022-0 Yes 100 mg = 1 Memoria 100 mg oral 4-18 tab, PO, l tablet 15:49: Daily allopurinol 3-0 Yes 100 mg = 1 Memoria 100 mg oral 4-18 tab, PO, l tablet 15:49: Daily allopurinol 2022-0 Yes 100 mg = 1 Memoria 100 mg oral 4-18 tab, PO, l tablet 15:49: Daily tamsulosin 3-0 Yes 0.4 mg = 1 M emoria 0.4 mg oral 4-18 cap, PO, l capsule 12:51: Daily, 0 Oni n 00 Refill(s) tamsulosin 2023-0 Yes 0.4 mg = 1 M emoria 0.4 mg oral 4-18 cap, PO, l capsule 12:51: Daily, 0 Oni n 00 Refill(s) tamsulosin 3-0 Yes 0.4 mg = 1 M emoria 0.4 mg oral 4-18 cap, PO, l capsule 12:51: Daily, 0 Oni n 00 Refill(s) pantoprazol 2023-0 Yes 20 mg = 1 M emoria e 20 mg 4-18 tab, PO, l oral 12:48: BID, 0 [place] [facility] 00 Refill(s) coated tablet pantoprazol 3-0 Yes 20 mg = 1 M emoria e 20 mg 4-18 tab, PO, l oral 12:48: BID, 0 [facility] enteric 00 Refill(s) coated tablet pantoprazol 2022-0 [...] BID, 0 Herm nora 00 Refill(s) carvedilol 2022-0 Yes 12.5 mg = Me moria 12.5 mg 4-18 1 tab, PO, l oral tablet 12:46: BID, 0 Herm nora 00 Refill(s) allopurinol 3-0 Yes 300 mg = 1 Memoria 300 mg oral 4-18 tab, PO, l tablet 12:45: Daily, 0 [place] 00 Refill(s) furosemide 3-0 Yes 80 mg = 1 Me moria 80 mg oral 4-18 tab, PO, l tablet 12:45: Daily, 0 [place] 00 Refill(s) allopurinol 3-0 Yes 300 mg = 1 Memoria 300 mg oral 4-18 tab, PO, l tablet 12:45: Daily, 0 Zen 00 Refill(s) furosemide 3-0 Yes 80 mg = 1 Me moria 80 mg oral 4-18 tab, PO, l tablet 12:45: Daily, 0 [place] 00 Refill(s) allopurinol 3-0 Yes 300 mg = 1 Memoria 300 mg oral 4-18 tab, PO, l tablet 12:45: Daily, 0 [place] 00 Refill(s) furosemide 2023-0 Yes 80 mg = 1 Me moria 80 mg oral 4-18 tab, PO, l tablet 12:45: Daily, 0 Zen 00 Refill(s) allopurinol 2021-0 Yes 1{tbl} QD Take 1 UT (Zyloprim) 8-30 tablet by [facility] 100 MG 16:31: mouth 1 tablet 24 (one) time each day. Magnesium 2021-0 Yes 400mg QD Take 400 UT Oxide [...] 00:00: (one) time 00 each day. calcitriol 2022-0 Yes .5ug Q2D Take 0.5 [...] e 5-24 0.5 mL, l 12:45: Injection, 00 IM, Once PRN for vomiting, first [...] oria 5-24 0.5 mL, l 12:45: Injection, [place] 00 IV Push, As Indicated PRN for [...] mL, l mL 12:45: Soln, NEB, inhalation 00 Once PRN solution for wheezing, first dose 07/23/21 7:45:00 CDT ondansetron No 4 mg = 2 Me moria 5-24 mL, l 12:45: Injection, IV Push, q15min PRN for nausea, order duration: 2 dose(s)/ti me(s), first dose 07/23/21 7:45:00 CDT, stop date Limited # of times LR 1,000 mL No 1,000 mL, M emoria 5-24 IV, 75 l 12:45: mL/hr, start date 07/23/21 7:45:00 CDT, 2.26, m2 promethazin No 12.5 mg = M emoria e 5-24 0.5 mL, l 12:45: Injection, 00 IM, Once PRN for vomiting, first dose 07/23/21 7:45:00 CDT labetalol 0 No 5 mg = 1 Jonathan kayden [...] first dose 07/23/21 7:45:00 CDT Saline Lock No 10 mL, Jonathan kayden Flush 5-24 Soln, IV l 12:45: Push, As Indicated PRN for flush, first dose 07/23/21 7:45:00 CDT Robinul No 0.2 mg = 1 Jonathan kayden 5-24 mL, l 12:45: Injection, IV Push, Once PRN for bradycardi a, first dose 07/23/21 7:45:00 CDT Xopenex 0 No 0.63 mg = Memor ia 0.63 mg/3 07-23 3 mL, l mL 12:45: Soln, NEB, Once PRN solution for wheezing, first dose 07/23/21 7:45:00 CDT LR 1,000 mL 0 No 1,000 mL, M emoria 5-24 IV, 75 l 12:45: mL/hr, start date 07/23/21 7:45:00 CDT, 2.26, m2 Saline Lock 0 No 10 mL, Jonathan [...] 3 mL, l mL 12:45: Soln, NEB, [place] inhalation 00 Once PRN solution for wheezing, first dose 07/23/21 7:45:00 CDT ondansetron No 4 mg = 2 Me moria 5-24 mL, l 12:45: Injection, [place] 00 IV Push, q15min PRN for nausea, order duration: 2 dose(s)/ti me(s), first dose 07/23/21 7:45:00 CDT, stop date Limited # of times promethazin No 12.5 mg = M emoria e 5-24 0.5 mL, l 12:45: Injection, Zen 00 IM, Once PRN for vomiting, first dose 07/23/21 7:45:00 CDT ondansetron No 4 mg = 2 Me moria 5-24 mL, l 12:45: Injection, [place] 00 IV Push, q15min PRN for nausea, order duration: 2 dose(s)/ti me(s), first dose 07/23/21 7:45:00 CDT, stop date Limited # of times labetalol No 5 mg = 1 Jonathan kayden 5-24 mL, l 12:45: Injection, [place] 00 IV Push, As Indicated PRN for [...] Hold Parameter: less than 110 mmHg diphenhydrA 2022-0 No 25 mg = Mem oria MINE 5-24 0.5 mL, l 12:45: Injection, IV Push, Once PRN for itching, first dose 07/23/21 7:45:00 CDT promethazin 0 No 12.5 mg = M [...] Jonathan kayden 5-24 mL, l 12:45: Injection, [place] 00 IV Push, As Indicated PRN for hypertensi on, first dose 07/23/21 7:45:00 CDT, SBP Hold Parameter: less than 110 mmHg, HR Hold Parameter: less than 60 bpm hydrALAZINE No 10 mg = Mem oria 5-24 0.5 mL, l 12:45: Injection, [place] 00 IV Push, As Indicated PRN for hypertensi on, first dose 07/23/21 7:45:00 CDT, SBP Hold Parameter: less than 110 mmHg diphenhydrA No 25 mg = Mem oria MINE 5-24 0.5 mL, l 12:45: Injection, 00 IV Push, Once PRN for itching, first dose 07/23/21 7:45:00 CDT Misc 0 No 100 mL, Memoria Medication 5-24 Soln-IV, l 12:37: IV, Once, first dose 07/23/21 7:37:00 CDT, stop date 07/23/21 7:37:00 CDT Misc 2021-0 No 100 mL, Memoria Medication 5-24 Soln-IV, l 12:37: IV, Once, first dose 07/23/21 7:37:00 CDT, stop date 07/23/21 7:37:00 CDT [facility] [place] 2021-0 No 100 mL, Memoria Medication 5-24 Soln-IV, l 12:37: IV, Once, first dose 07/23/21 7:37:00 CDT, stop date 07/23/21 7:37:00 CDT Mis 2021-0 No 100 mL, Memoria Medication 5-24 Soln-IV, l 12:37: IV, Once, first dose 07/23/21 7:37:00 CDT, stop date 07/23/21 7:37:00 CDT [facility] [place] 2021-0 No 100 mL, Memoria Medication 5-24 Soln-IV, l 12:37: IV, Once, first dose 07/23/21 7:37:00 CDT, stop date 07/23/21 7:37:00 CDT propofol 2021-0 No 40 mg = 4 Jonathan kayden 5-24 mL, l 12:26: Emulsion, [place] 00 IV, Once, first dose 07/23/21 7:26:00 CDT, stop date 07/23/21 7:26:00 CDT lidocaine 2021-0 No 20 mg = 1 Mem oria 5-24 mL, l 12:26: Injection, Zen IV, Once, first dose 07/23/21 7:26:00 CDT, stop date 07/23/21 7:26:00 CDT propofol 2021-0 No 40 mg = 4 Jonathan kayden 5-24 mL, l 12:26: Emulsion, [place] 00 IV, Once, first dose 07/23/21 7:26:00 CDT, stop date 07/23/21 7:26:00 CDT lidocaine 2021-0 No 20 mg = 1 Mem oria 5-24 mL, l 12:26: Injection, [place] 00 IV, Once, first dose 07/23/21 7:26:00 CDT, stop date 07/23/21 7:26:00 CDT propofol 2-0 No 40 mg = 4 Jonathan kayden 5-24 mL, l 12:26: Emulsion, Zen 00 IV, Once, first dose 07/23/21 7:26:00 CDT, stop date 07/23/21 7:26:00 CDT lidocaine 2022-0 No 20 mg = 1 Mem oria 5-24 mL, l 12:26: Injection, [place] 00 IV, Once, first dose 07/23/21 7:26:00 [...] Jonathan kayden 5-24 mL, l 12:26: Emulsion, [place] 00 IV, Once, first dose 07/23/21 7:26:00 CDT, stop date 07/23/21 7:26:00 CDT lidocaine 2-0 No 20 mg = 1 Mem oria 5-24 mL, l 12:26: Injection, [place] 00 IV, Once, first dose 07/23/21 7:26:00 [...] Mem oria 5-24 mL, l 12:22: Injection, [place] 00 IV, Once, first dose 07/23/21 7:22:00 [...] CDT, stop date 07/23/21 7:22:00 CDT propofol 2-0 No 80 mg = 8 Jonathan kayden 5-24 mL, l 12:22: Emulsion, [place] 00 IV, Once, first dose 07/23/21 7:22:00 CDT, stop date 07/23/21 7:22:00 CDT lidocaine 2-0 No 40 mg = 2 Mem oria 5-24 mL, l 12:22: Injection, [place] 00 IV, Once, first dose 07/23/21 7:22:00 CDT, stop date 07/23/21 7:22:00 CDT propofol 2-0 No 80 mg = [...] Jonathan kayden 5-24 mL, l 12:21: Injection, [place] 00 IV, Once, first dose 07/23/21 7:21:00 CDT, stop date 07/23/21 7:21:00 CDT ketamine 2022-0 No 25 mg = Memori a 5-24 0.5 mL, l 12:21: Injection, Zen 00 IV, Once, first dose 07/23/21 7:21:00 CDT, stop date 07/23/21 7:21:00 CDT midazolam 2022-0 No 2 mg = 2 Jonathan kaydne 5-24 mL, l 12:21: Injection, [place] 00 IV, Once, first dose 07/23/21 7:21:00 CDT, stop date 07/23/21 7:21:00 CDT ketamine 2022-0 No 25 mg = Memori a 5-24 0.5 mL, l 12:21: Injection, [place] 00 IV, Once, first dose 07/23/21 7:21:00 [...] a 5-24 0.5 mL, l 12:21: Injection, [place] 00 IV, Once, first dose 07/23/21 7:21:00 CDT, stop date 07/23/21 7:21:00 CDT LR 1,000 mL 2022-0 No 1,000 mL, M emoria 5-24 IV, 30 l 11:10: mL/hr, Zen 00 start date 07/23/21 6:10:00 CDT, 2.26, m2 Lidocaine 2022-0 No 0.2 mL, Memor ia 2% 0.2 mL 5-24 Injection, l IV Start 11:10[facility] , Once PRN for other (see comment), first dose 07/23/21 6:10:00 CDT LR 1,000 mL 2-0 No 1,000 mL, M emoria 5-24 IV, 30 l 11:10: mL/hr, start date 07/23/21 6:10:00 CDT, 2.26, m2 Lidocaine 2-0 No 0.2 mL, Memor ia 2% 0.2 mL 5-24 Injection, l IV Start 11:10: [facility], Once PRN for other (see comment), first dose 07/23/21 6:10:00 CDT LR 1,000 mL 2021-0 No 1,000 mL, M emoria 5-24 IV, 30 l 11:10: mL/hr, start date 07/23/21 6:10:00 CDT, 2.26, m2 Lidocaine 2-0 No 0.2 mL, Memor ia 2% 0.2 mL 5-24 Injection, l IV Start 11:10: [facility] us, Once PRN for other (see comment), first dose 07/23/21 6:10:00 CDT LR 1,000 mL 2-0 No 1,000 mL, M emoria 5-24 IV, 30 l 11:10: mL/hr, start date 07/23/21 6:10:00 CDT, 2.26, m2 Lidocaine 2022-0 No 0.2 mL, Memor ia 2% 0.2 mL 5-24 Injection, l IV Start 11:10: [facility] us, Once PRN for other (see comment), first dose 07/23/21 6:10:00 CDT LR 1,000 mL No 1,000 mL, M emoria 5-24 IV, 30 l 11:10: mL/hr, Zen 00 start date 07/23/21 6:10:00 CDT, 2.26, m2 Lidocaine No 0.2 mL, Memor ia 2% 0.2 mL 5-24 Injection, l IV Start 11:10: [facility]] 00 us, Once PRN for other (see [...] 5-23 TABLET BY l tablet 18:15: MOUTH [place] 00 EVERY DAY, GOUT docusate Yes 100 [...] 5-23 CAPSULE BY l delayed 18:15: MOUTH [place] release 00 EVERY DAY, capsule GERD Potassium Yes TAKE 1 Memori a Chloride 5-23 TABLET BY l (Eqv-K-Tab) 18:15: MOUTH Mehreen nn 20 mEq oral 00 EVERY DAY, tablet, Dialysis extended release pantoprazol Yes TAKE 1 Jonathan kayden e 40 mg 5-23 TABLET BY l oral 18:15: MOUTH [place] delayed 00 TWICE A release DAY, GERD tablet allopurinol Yes TAKE 1 Jonathan kayden 300 mg oral 5-23 TABLET BY l tablet 18:15: MOUTH Zen 00 EVERY DAY, GOUT docusate Yes 100 mg = 1 Mem oria sodium 100 5-23 caps, l mg oral 18:15: Oral, [place] capsule 00 q6hr, PRN as needed for constipati on, Constipati on atorvastati Yes 20 mg = 1 M emoria n 20 mg 5-23 tabs, l oral tablet 18:15: Oral, Mehreen nn 00 Daily, 0 Refill(s), High Cholestero l omeprazole Yes TAKE 1 Memor ia 20 mg oral 5-23 CAPSULE BY l delayed 18:15: MOUTH [place] release 00 EVERY DAY, capsule GERD Potassium Yes TAKE 1 Memori a Chloride 5-23 TABLET BY l (Eqv-K-Tab) 18:15: MOUTH Mehreen nn 20 mEq oral 00 EVERY DAY, tablet, Dialysis extended release pantoprazol Yes TAKE 1 Jonathan kayden e 40 mg 5-23 TABLET BY l oral 18:15: MOUTH [place] delayed 00 TWICE A release DAY, GERD tablet allopurinol Yes TAKE 1 Jonathan kayden 300 mg oral 5-23 TABLET BY l tablet 18:15: MOUTH [place] 00 EVERY DAY, GOUT docusate Yes 100 mg = 1 Mem oria sodium 100 5-23 caps, l mg oral 18:15: Oral, [place] capsule 00 q6hr, PRN as needed for constipati on, Constipati on atorvastati Yes 20 mg = 1 M emoria n 20 mg 5-23 tabs, l oral tablet 18:15: Oral, Mehreen nn 00 Daily, 0 Refill(s), High Cholestero l omeprazole Yes TAKE 1 Memor ia 20 mg oral 5-23 CAPSULE BY l delayed 18:15: MOUTH [place] release 00 EVERY DAY, capsule GERD Potassium Yes TAKE 1 Memori a Chloride 5-23 TABLET BY l (Eqv-K-Tab) 18:15: MOUTH Mehreen nn 20 mEq oral 00 EVERY DAY, tablet, Dialysis extended release pantoprazol Yes TAKE 1 Jonathan kayden e 40 mg 5-23 TABLET BY l oral 18:15: MOUTH [place] delayed 00 TWICE A release DAY, GERD [...] 5-23 TABLET BY l tablet 18:15: MOUTH [place] 00 EVERY DAY, GOUT docusate Yes 100 [...] 5-23 CAPSULE BY l delayed 18:15: MOUTH [place] release 00 EVERY DAY, capsule GERD hydrALAZINE Yes 25 mg = 1 M emoria 25 mg oral 5-23 tabs, l tablet 18:14: Oral, BID, Mehreen nn 00 0 Refill(s), HTN carvedilol 2022-0 Yes 6.25 mg = Me moria 6.25 mg 5-23 1 tabs, l oral tablet 18:14: Oral, BID, Zen 00 0 Refill(s), HTN tamsulosin 2022-0 Yes 0.4 mg = 1 M emoria 0.4 mg oral 5-23 caps, l capsule 18:14: Oral, Zen 00 Daily, 0 Refill(s), BPH hydrALAZINE 2022-0 Yes 25 mg = 1 M emoria 25 mg oral 5-23 tabs, l tablet 18:14: Oral, BID, Mehreen nn 00 0 Refill(s), HTN carvedilol 2-0 Yes 6.25 mg = Me moria 6.25 mg 5-23 1 tabs, l oral tablet 18:14: Oral, BID, Zen 00 0 Refill(s), HTN tamsulosin 2-0 Yes 0.4 mg = 1 M emoria 0.4 mg oral 5-23 caps, l capsule 18:14: Oral, Zen 00 Daily, 0 Refill(s), BPH hydrALAZINE 2-0 Yes 25 mg = 1 M emoria 25 mg oral 5-23 tabs, l tablet 18:14: Oral, BID, Mehreen nn 00 0 Refill(s), HTN carvedilol 2-0 Yes 6.25 mg = Me moria 6.25 mg 5-23 1 tabs, l oral tablet 18:14: Oral, BID, [place] 00 0 Refill(s), HTN tamsulosin 2-0 Yes 0.4 mg = 1 M emoria 0.4 mg oral 5-23 caps, l capsule 18:14: Oral, [place] 00 Daily, 0 Refill(s), BPH hydrALAZINE 2022-0 Yes 25 mg = 1 M emoria 25 mg oral 5-23 tabs, l tablet 18:14: Oral, BID, Mehreen nn 00 0 Refill(s), HTN carvedilol 2-0 Yes 6.25 mg = Me moria 6.25 mg 5-23 1 tabs, l oral tablet 18:14: Oral, BID, [place] 00 0 Refill(s), HTN tamsulosin 2022-0 Yes 0.4 mg = 1 M emoria 0.4 mg oral 5-23 caps, l capsule 18:14: Oral, Zen 00 Daily, 0 Refill(s), BPH hydrALAZINE 2-0 Yes 25 mg = 1 M emoria 25 mg oral 5-23 tabs, l tablet 18:14: Oral, BID, Mehreen nn 00 0 Refill(s), HTN carvedilol 2-0 Yes 6.25 mg = Me moria 6.25 mg 5-23 1 tabs, l oral tablet 18:14: Oral, BID, Zen 00 0 Refill(s), HTN tamsulosin 2-0 Yes 0.4 mg = 1 M emoria 0.4 mg oral 5-23 caps, l capsule 18:14: Oral, [place] 00 Daily, 0 Refill(s), BPH atorvastati 2021-0 Yes 20 mg = 1 M emoria n 20 mg 5-03 tab, PO, l oral tablet 18:50: Bedtime, # Zen 00 90 tab, 1 Refill(s), Pharmacy: [facility] #[id number], 180.34, cm, 07/02/21 13:31:00 CDT, Height, 109.176, kg, 07/02/21 13:31:00 CDT, Weight atorvastati 2021-0 Yes 20 mg = 1 M emoria n 20 mg 5-03 tab, PO, l oral tablet 18:50: Bedtime, # [place] 00 90 tab, 1 Refill(s), Pharmacy: [facility] #[id number], 180.34, cm, 07/02/21 13:31:00 CDT, Height, 109.176, kg, 07/02/21 13:31:00 CDT, Weight atorvastati 2021-0 Yes 20 mg = 1 M emoria n 20 mg 5-03 tab, PO, l oral tablet 18:50: Bedtime, # Zen 00 90 tab, 1 Refill(s), Pharmacy: [facility] #[id number], 180.34, cm, 07/02/21 13:31:00 CDT, Height, 109.176, kg, 07/02/21 13:31:00 CDT, Weight atorvastati Yes 20 mg = 1 M tamekaa n 20 mg 5-03 tab, PO, l oral tablet 18:50: Bedtime, # [place] 00 90 tab, 1 Refill(s), Pharmacy: [facility] #[id number], 180.34, cm, 07/02/21 13:31:00 CDT, Height, 109.176, kg, 07/02/21 13:31:00 CDT, Weight omeprazole 2021-0 2022- No 20mg QD Take 20 mg [facility] ([facility] 3-25 -[address] 20 MG 13:43: 00:00 daily. [facility]osp[facility] capsule 56 :00 l omeprazole 2-0 2022- No 20mg QD Take 20 mg [facility] ([facility]) 3-25 -[address] 20 MG 13:43: 00:00 daily. Hospita capsule 56 :00 l omeprazole 2-0 2022- No 20mg QD Take 20 mg [facility] ([facility]) 3-25 -[address] 20 MG 13:43: 00:00 daily. Hospita capsule 56 :00 l omeprazole 2-0 2022- No 20mg QD Take 20 mg [facility] ([facility]) 3-25 -[address] 20 MG 13:43: 00:00 daily. Hospita capsule 56 :00 l omeprazole 2-0 2022- No 20mg QD Take 20 mg [facility] ([facility]) 3-25 -[address] 20 MG 13:43: 00:00 daily. Hospita capsule 56 :00 l omeprazole 2-0 2022- No 20mg QD Take 20 mg [facility] ([facility]) 3-25 -[address] 20 MG 13:43: 00:00 daily. Hospita capsule 56 :00 l omeprazole 2022-0 2022- No 20mg QD Take 20 mg [facility] ([facility]) 3-25 -[address] 20 MG 13:43: 00:00 daily. Hospita capsule 56 :00 l omeprazole 2022-0 2022- No 20mg QD Take 20 mg [facility] ([facility]) 3-25 -[address] 20 MG 13:43: 00:00 daily. Hospita capsule 56 :00 l omeprazole 2021-0 2022- No 20mg QD Take 20 mg [facility] ([facility]) 3-25 03-[address] 20 MG 13:43: 00:00 daily. Hospita capsule 56 :00 l omeprazole 2021-0 2- No 20mg QD Take 20 mg [facility] [...] capsule times a day. acetaminoph 2021-0 Yes [id number] 1{tbl} Q6H Take 1 M [facility]i en-codeine [...] a day with meals. ergocalcife 2021-0 Yes [id number] Q30D Take Meth sarah rol 3-25 50,000 [...] capsule times a day. acetaminoph 2021-0 Yes [id number] 1{tbl} Q6H Take 1 M ethodi en-codeine [...] a day with meals. ergocalcife 2021-0 Yes [id number] Q30D Take Meth sarah rol 3-25 50,000 [...] capsule times a day. acetaminoph 2021-0 Yes [id number] 1{tbl} Q6H Take 1 M ethodi en-codeine [...] a day with meals. ergocalcife 202-0 Yes [id number] Q30D Take Meth sarah rol 3-25 50,000 [...] capsule times a day. acetaminoph 2021-0 Yes [id number] 1{tbl} Q6H Take 1 M ethodi en-codeine [...] a day with meals. ergocalcife 2021-0 Yes [id number] Q30D Take Meth sarah rol 3-25 50,000 [...] capsule times a day. acetaminoph 2021-0 Yes [id number] 1{tbl} Q6H Take 1 M ethodi en-codeine [...] a day with meals. ergocalcife 2021-0 Yes [id number] Q30D Take Meth sarah rol 3-25 50,000 [...] capsule times a day. acetaminoph 0 Yes [id number] 1{tbl} Q6H Take 1 M ethodi en-codeine [...] a day with meals. ergocalcife 2021-0 Yes [id number] Q30D Take Meth sarah rol 3-25 50,000 [...] capsule times a day. acetaminoph 2021-0 Yes [id number] 1{tbl} Q6H Take 1 M ethodi en-codeine [...] a day with meals. ergocalcife 2021-0 Yes [id number] Q30D Take Meth sarah rol 3-25 50,000 [...] capsule times a day. acetaminoph 2021-0 Yes [id number] 1{tbl} Q6H Take 1 M [facility]i en-codeine [...] a day with meals. ergocalcife 2021-0 Yes [id number] Q30D Take Meth sarah rol 3-25 50,000 [...] capsule times a day. acetaminoph 2021-0 Yes [id number] 1{tbl} Q6H Take 1 M ethodi en-codeine [...] a day with meals. ergocalcife 2021-0 Yes [id number] Q30D Take Meth sarah rol 3-25 50,000 [...] capsule times a day. acetaminoph 2021-0 Yes [id number] 1{tbl} Q6H Take 1 M ethodi en-codeine [...] a day with meals. ergocalcife 2021-0 Yes [id number] Q30D Take Meth sarah rol 3-25 50,000 [...] capsule times a day. acetaminoph 0 Yes [id number] 1{tbl} Q6H Take 1 M ethod[facility] en-codeine [...] a day with meals. ergocalcife 0 Yes [id number] Q30D Take Meth sarah rol 3-25 50,000 [...] capsule times a day. acetaminoph 2021-0 Yes [id number] 1{tbl} Q6H Take 1 M ethodi en-codeine [...] a day with meals. ergocalcife 2021-0 Yes [id number] Q30D Take Meth sarah rol 3-25 50,000 [...] capsule times a day. acetaminoph 2021-0 Yes [id number] 1{tbl} Q6H Take 1 M ethodi en-codeine [...] a day with meals. ergocalcife 2021-0 Yes [id number] Q30D Take Meth sarah rol 3-25 50,000 [...] capsule times a day. acetaminoph 2021-0 Yes [id number] 1{tbl} Q6H Take 1 M ethodi en-codeine [...] a day with meals. ergocalcife 2021-0 Yes [id number] Q30D Take Meth sarah rol 3-25 50,000 [...] capsule times a day. acetaminoph 2021-0 Yes [id number] 1{tbl} Q6H Take 1 M ethodi en-codeine [...] a day with meals. ergocalcife 2021-0 Yes [id number] Q30D Take Meth sarah rol 3-25 50,000 [...] capsule times a day. acetaminoph 2021-0 Yes [id number] 1{tbl} Q6H Take 1 M ethodi en-codeine [...] a day with meals. ergocalcife 0 Yes [id number] Q30D Take Meth sarah rol 3-25 50,000 [...] capsule times a day. acetaminoph 2021-0 Yes [id number] 1{tbl} Q6H Take 1 M ethodi en-codeine [...] a day with meals. ergocalcife 2022-0 Yes [id number] Q30D Take Meth sarah rol 3-25 50,000 [...] capsule times a day. acetaminoph 2021-0 Yes [id number] 1{tbl} Q6H Take 1 M ethodi en-codeine [...] a day with meals. ergocalcife 2021-0 Yes [id number] Q30D Take Meth sarah rol 3-25 50,000 [...] capsule times a day. acetaminoph 2021-0 Yes [id number] 1{tbl} Q6H Take 1 M ethodi en-codeine [...] a day with meals. ergocalcife 0 Yes [id number] Q30D Take Meth sarah rol 3-25 50,000 [...] for wheezing or shortness of breath. docusate 202-0 Yes 100mg Q.5D Take 100 Meth sarah sodium 3-[address] ([facility]) 13:43: mouth 2 Hospit a 100 MG 52 (two) l capsule times a day. acetaminoph 202-0 Yes [id number] 1{tbl} Q6H Take 1 M ethodi en-codeine [...] a day with meals. ergocalcife 2022-0 Yes [id number] Q30D Take Meth sarah rol 3-25 50,000 [...] l (241.3 mg morning. magnesium) tablet albuterol 2-0 Yes 2.5mg Q.5D Take 2.5 Met hodi [...] capsule times a day. acetaminoph 2021-0 Yes [id number] 1{tbl} Q6H Take 1 M ethodi en-codeine [...] a day with meals. ergocalcife 2021-0 Yes [id number] Q30D Take Meth sarah rol 3-25 50,000 [...] capsule times a day. acetaminoph 2021-0 Yes [id number] 1{tbl} Q6H Take 1 M ethodi en-codeine [...] a day with meals. ergocalcife 2021-0 Yes [id number] Q30D Take Meth sarah rol 3-25 50,000 [...] capsule times a day. acetaminoph 2021-0 Yes [id number] 1{tbl} Q6H Take 1 M ethodi en-codeine [...] a day with meals. ergocalcife 2022-0 Yes [id number] Q30D Take Meth sarah rol 3-25 50,000 st (VITAMIN 13:43: Units by Hospi ta D2) 50,000 52 mouth l unit every 30 capsule (thirty) days. every month hydrALAZINE 2-0 Yes 10mg Q.5D Take 10 mg [facility] (APRESOLINE 3-[address] ) 10 MG 13:43: (two) Hospita tablet 52 times a l day. allopurinoL 2-0 Yes 100mg QD Take 100 [...] a day with meals. ergocalcife 2022-0 Yes [id number] Q30D Take Meth sarah rol 3-25 50,000 st (VITAMIN 13:43: Units by Hospi ta D2) 50,000 52 mouth l unit every 30 capsule (thirty) days. every month hydrALAZINE 2021-0 Yes 10mg Q.5D Take 10 mg [facility] (APRESOLINE 3-[address] ) 10 MG 13:43: (two) Hospita tablet 52 times a l day. magnesium 2-0 Yes 400mg QD Take 400 Met hodi [...] capsule times a day. acetaminoph 2021-0 Yes [id number] 1{tbl} Q6H Take 1 M [facility] en-codeine [...] with dinner for 30 days. sucralfate 2021-0 202- No 1g Q.25D Take 10 mL [facility] (CARAFATE) 3-25 04-25 ([address] 100 mg/mL 00:00: 04:59 total) by [facility] suspension 00 :00 mouth 4 l (four) times a day before meals and nightly for 30 days. pantoprazol 2021-0 2022- No 40mg QD Take 1 Met [...] .4mg QD Take 1 Meth sarah (FLOMAX) 05-24-[address] 0.4 mg 00:00: 04:59 (0.4 mg [facility] capsule 00 :00 total) by l mouth daily with dinner for 30 days. sucralfate No 1g Q.25D Take 10 mL [facility] (CARAFATE) 05-24-25 ([address] 100 mg/mL 00:00: 04:59 total) by [facility] suspension 00 :00 mouth 4 l (four) times a day before meals and nightly for 30 days. pantoprazol No 40mg QD Take 1 Met hodi [...] QD Take 1 Me thodi r (Valtrex) 3-[address] 500 MG 00:00: 04:59 (500 mg [facility]osp[facility] tablet 00 :00 total) by l mouth daily for 10 days. Take at 8 pm and after dialysis on dialysis days omeprazole Yes 20 mg = 1 Me moria 20 mg oral 2-07 cap, PO, l delayed 18:57: Daily [place] release 00 capsule omeprazole 0 Yes 20 mg = 1 Me moria 20 mg oral 2-07 cap, PO, l delayed 18:57: Daily [place] release 00 capsule omeprazole 0 Yes 20 mg = 1 Me moria 20 mg oral 2-07 cap, PO, l delayed 18:57: Daily [place] release 00 capsule omeprazole Yes 20 mg = 1 Me moria 20 mg oral 2-07 cap, PO, l delayed 18:57: Daily [place] release 00 capsule Docusate Yes 100 mg = 1 [facility] Sodium 100 2-07 cap, PO, l MG Oral 18:53: Daily [place] Capsule 00 docusate Yes 100 mg = 1 [facility] sodium 100 2-07 cap, PO, l mg oral 18:53: Daily [place] capsule Docusate Yes 100 mg = 1 [facility] Sodium 100 2-07 cap, PO, l MG Oral 18:53: Daily [facility] Capsule 00 docusate Yes 100 mg = 1 [facility] sodium 100 2-07 cap, PO, l mg oral 18:53: Daily [facility] capsule 00 Docusate Yes 100 mg = 1 [facility] Sodium 100 2-07 cap, PO, l MG Oral 18:53: Daily [facility] Capsule docusate Yes 100 mg = 1 [facility] sodium 100 2-07 cap, PO, l mg oral 18:53: Daily [facility] capsule Docusate Yes 100 mg = 1 [facility] Sodium 100 2-07 cap, PO, l MG Oral 18:53: Daily [place] Capsule docusate Yes 100 mg = 1 [facility] sodium 100 2-07 cap, PO, l mg oral 18:53: Daily [facility] capsule 00 Acetaminoph Yes 1,000 mg = Memoria en 500 MG 2-07 2 tab, PO, l Oral Tablet 18:48: Q6H, PRN rmann [Tylenol] 00 Pain Tylenol Yes 1,000 mg = Jonathan kayden Extra 2-07 2 tab, PO, l Strength 18:48: Q6H, PRN Mehreen nn 500 mg oral 00 Pain tablet Acetaminoph Yes 1,000 mg = [facility] en 500 MG 2-07 2 tab, PO, l Oral Tablet 18:48: Q6H, PRN rmann [Tylenol] 00 Pain Tylenol Yes 1,000 [...] tab, PO, l Tablet 18:47: BID Zen 00 carvedilol Yes 3.125 mg = M emoria 6.25 mg 2-07 0.5 tab, l oral tablet 18:47: PO, BID Her furosemide Yes 40 mg = 1 Me moria 40 mg oral 2-07 tab, PO, l tablet 18:47: BID [place] Potassium No TAKE 1 Memori a Chloride 2-07 TABLET BY l (Eqv-K-Tab) 18:47: MOUTH Mehreen nn 20 mEq oral 00 EVERY DAY tablet, extended release Furosemide Yes 40 mg = 1 Me moria 40 MG Oral 2-07 tab, PO, l Tablet 18:47: BID [place] 00 carvedilol Yes 3.125 mg = M emoria 6.25 mg 2-07 0.5 tab, l oral tablet 18:47: PO, BID Her sarmiento furosemide 0 Yes 40 mg = 1 Me moria 40 mg oral 2-07 tab, PO, l tablet 18:47: BID Zen Potassium 0 No TAKE 1 Memori a Chloride 2-07 TABLET BY l (Eqv-K-Tab) 18:47: MOUTH Mehreen nn 20 mEq oral 00 EVERY DAY tablet, extended release Furosemide 2021-0 Yes 40 mg = 1 Me moria 40 MG Oral 2-07 tab, PO, l Tablet 18:47: BID carvedilol 0 Yes 3.125 mg = M emoria 6.25 mg 2-07 0.5 tab, l oral tablet 18:47: PO, BID furosemide 0 Yes 40 mg = 1 Me moria 40 mg oral 2-07 tab, PO, l tablet 18:47: BID Potassium No TAKE 1 Memori a Chloride 2-07 TABLET BY l (Eqv-K-Tab) 18:47: MOUTH Mehreen nn 20 mEq oral 00 EVERY DAY tablet, extended release Furosemide 0 Yes 40 mg = 1 Me moria 40 MG Oral 2-07 tab, PO, l Tablet 18:47: BID carvedilol 0 Yes 3.125 mg = M emoria 6.25 mg 2-07 0.5 tab, l oral tablet 18:47: PO, BID sarmiento furosemide 2021-0 Yes 40 mg = 1 Me moria 40 mg oral 2-07 tab, PO, l tablet 18:47: BID lisinopril 2021-0 Yes 40 mg = 1 Me moria 40 mg oral 2-07 tab, PO, l tablet 18:39: Daily lisinopril 2021-0 Yes 40 mg = 1 Me moria 40 mg oral 2-07 tab, PO, l tablet 18:39: Daily lisinopril 2021-0 Yes 40 mg = 1 Me moria 40 mg oral 2-07 tab, PO, l tablet 18:39: Daily lisinopril 2021-0 Yes 40 mg = 1 Me moria 40 mg oral 2-07 tab, PO, l tablet 18:39: Daily tadalafil 2020-0 Yes [id number] 5mg QD Take 1 U T (Cialis) 5 8-23 tablet (5 [facility] MG tablet 00:00: mg total) 00 by mouth 1 (one) time each day. Pt will hold the daily when taking on demand. tadalafil 1-0 Yes [id number] 20mg Take 1 U T (Cialis) 20 8-23 tablet (20 [facility] MG tablet 00:00: mg total) 00 by mouth if needed for erectile dysfunctio n (Pt will hold the daily dose and can not take more than q 36 hours). tadalafil 1-0 Yes [id number] 5mg QD Take 1 U T (Cialis) 5 8-23 tablet (5 [facility] MG tablet 00:00: mg total) 00 by mouth 1 (one) time each day. Pt will hold the daily when taking on demand. tadalafil 1-0 Yes [id number] 20mg Take 1 U T (Cialis) 20 8-23 tablet (20 [facility] MG tablet 00:00: mg total) 00 by mouth if needed for erectile dysfunctio n (Pt will hold the daily dose and can not take more than q 36 hours). tadalafil 2020-0 1- No [id number] 5mg QD Take 1 UT (Cialis) 5 8- 11-22 tablet (5 [facility] MG tablet 00:00: 05:59 mg total) 00 :00 by mouth 1 (one) time each day. Pt will hold the daily when taking on demand. tadalafil 2020-0 2020- No [id number] 20mg Take 1 UT (Cialis) 20 8- 11-22 tablet (20 [facility] MG tablet 00:00: 05:59 mg total) 00 :00 by mouth if needed for erectile dysfunctio n (Pt will hold the daily dose and can not take more than q 36 hours). tadalafil 1-0 1- No [id number] 5mg QD Take 1 UT (Cialis) 5 8- 11-22 tablet (5 [facility] MG tablet 00:00: 05:59 mg total) 00 :00 by mouth 1 (one) time each day. Pt will hold the daily when taking on demand. tadalafil 2020-0 1- No [id number] 20mg Take 1 UT (Cialis) 20 8-23 11-22 tablet (20 [facility] MG tablet 00:00: 05:59 mg total) 00 :00 by mouth if needed for erectile dysfunctio n (Pt will hold the daily dose and can not take more than q 36 hours). tadalafil 2020- No [id number] 5mg QD Take 1 UT (Cialis) 5 - 11- tablet (5 [facility] MG tablet 00:00: 05:59 mg total) 00 :00 by mouth 1 (one) time each day. Pt will hold the daily when taking on demand. tadalafil 2020- No [id number] 20mg Take 1 UT (Cialis) 20 -22 [...] a day with meals. ergocalcife 0 Yes [id number] Q30D Take Meth sarah rol 7-[address] 50,[address] (VITAMIN 22:35: Units by Hospi ta D2) 50,000 26 mouth l unit every 30 capsule (thirty) days. 15 of every month hydrALAZINE 0 Yes 10mg Q.5D Take 10 mg [facility] (APRESOLINE 7-[address] ) 10 MG 22:35: (two) Hospita tablet 26 times a l day. magnesium 2021-0 Yes [...] l capsule [place]. [place] [id number] 1{tbl} Q6H Take 1 M [facility] en-codeine [...] each day. hydrALAZINE Yes hydralazin UT (Apresoline 09-20 e [...] methylPREDN 2020- No follow Met hodi ISolone 09-[address] (Medrol, 00:00: 04:59 directions Ho spishivam Allan,) 4 mg 00 :00 l tablet atorvastati 2020- No 20mg QD Take 20 mg [facility] (LIPITOR) 09-19-[address] 20 mg 21:24: 00:00 daily. [facility]ospita tablet 39 :00 Take 1 tab l by mouth daily tamsulosin 2020- No .4mg QD Take 0.4 Me thodi (FLOMAX) 09-19-[address] 0.4 mg 21:24: 00:00 mouth [facility]osp[facility] capsule 34 :00 daily with l dinner. Take 1 capsule by mouth daily famotidine 2020- No 20mg Q.5D Take 20 mg [facility] (PEPCID) 20 09-19-21 by mouth 2 s t MG tablet [...] 23 6-16 (Same as: l 17:52: Pneumovax [place] ) Refrigerat e Pneumovax No Notes: Memori a 23 6-16 (Same as: l 17:52: Pneumovax Zen ) Refrigerat e Pneumovax No Notes: Memori a 23 6-16 (Same as: l 17:52: Pneumovax [place] ) Refrigerat e ciprofloxac ciprofloxa [facility] in HCl 5-26 05-26 esperanza [...] Take 5 mg Me thodi (CIALIS) 5 07-[address] MG tablet 08:35: 00:00 daily as Hos nehemiah 55 :00 needed for l erectile dysfunctio n. amLODIPine No 5mg QD Take 1 Meth sarah (NORVASC) 5 07-13 tablet (5 st mg tablet 00:00: 04:59 mg total) Ho [facility]ita 00 :00 by mouth l daily for 30 days. sodium 650mg QD Take 1 [facility] bicarbonate 07-[address] 650 mg 00:00: 04:59 (650 mg Hospita tablet 00 :00 total) by l mouth daily for 30 days. 0.5 ML No Notes: Memoria Hepatitis B 5-13 (Same as: l Surface 18:00: Heplisav-B Herm nora Antigen 00 ) Vaccine Non-Formul 0.04 MG/ML elzbieta Injection 0.5 ML No Notes: Memoria Bordetella 5-13 Therapeuti l pertussis 18:00: c [place] filamentous 00 Interchang hemagglutin e for in [...] Therapeuti l pertussis 18:00: c Zen filamentous Interchang hemagglutin e for in vaccine, Boostrix [...] Therapeuti l pertussis 18:00: c Zen filamentous Interchang hemagglutin e for in vaccine, Boostrix [...] Bordetella 5-13 Therapeuti l pertussis 18:00: c [place] filamentous Interchang hemagglutin e for in vaccine, Boostrix inactivated 0.016 MG/ML / Bordetella pertussis pertactin vaccine, inactivated 0.005 MG/ML / Bordetella pertussis toxoid vaccine, inactivated 0.016 MG/ML / diphtheria toxoid vaccine, inactivate polyethylen 2020- No 17g Q24H Take 17 g [facility] e glycol 5-13 06-[address] (MIRALAX) 00:00: 04:59 daily [...] up to 30 days. acetaminoph 2020- [place] [id number] 1{tbl} Q6H Take 1 [facility] en-codeine 5-13 [...] Zen 00 14 tab, 0 Refill(s), Pharmacy: [facility] #[id number], 187.96, cm, 06/14/20 7:58:00 CDT, Height, 109.045, kg, 06/14/20 7:58:00 CDT, Weight ivermectin Yes 21 mg = 7 Me moria 3 mg oral 4-15 tab, PO, l tablet 13:59: Daily, # [place] 00 14 tab, 0 Refill(s), Pharmacy: [facility] #[id number], 187.96, cm, 06/14/20 7:58:00 CDT, Height, 109.045, kg, 06/14/20 7:58:00 CDT, Weight ivermectin Yes 21 mg = 7 Me moria 3 mg oral 4-15 tab, PO, l tablet 13:59: Daily, # Zen 00 14 tab, 0 Refill(s), Pharmacy: [facility] #[id number], 187.96, cm, 06/14/20 7:58:00 CDT, Height, 109.045, kg, 06/14/20 7:58:00 CDT, Weight ivermectin Yes 21 mg = 7 Me moria 3 mg oral 4-15 tab, PO, l tablet 13:59: Daily, # [place] 00 14 tab, 0 Refill(s), Pharmacy: [facility] #[id number], 187.96, cm, 06/14/20 7:58:00 CDT, Height, 109.045, kg, 04/15/21 7:58:00 CDT, Weight calcitriol 2020-0 Yes 0.5 Memoria 0.5 mcg 2-03 microgram l oral 14:11: = 1 cap, Zen capsule 00 PO, Every Other Day calcitriol 2020-0 Yes 0.5 Memoria 0.5 mcg 2-03 microgram l oral 14:11: = 1 cap, Zen capsule 00 PO, Every Other Day calcitriol 2020-0 Yes 0.5 Memoria 0.5 mcg 2-03 microgram l oral 14:11: = 1 cap, [place] capsule 00 PO, Every Other Day calcitriol 2020-0 Yes 0.5 Memoria 0.5 mcg 2-03 microgram l oral 14:11: = 1 cap, Zen capsule 00 PO, Every Other Day allopurinol 2020-0 Yes 100 mg = 1 Memoria 100 mg oral 2-03 tab, PO, l tablet 14:06: Daily allopurinol 2020-0 Yes 100 mg = 1 Memoria 100 mg oral 2-03 tab, PO, l tablet 14:06: Daily allopurinol 2020-0 Yes 100 mg = 1 Memoria 100 mg oral 2-03 tab, PO, l tablet 14:06: Daily allopurinol 2020-0 Yes 100 mg = 1 [...] 2-26 Route: IM, l 16:16: Drug form: [place] 00 PDR/INJ, ONCE, Dosing Weight 113.636, kg, Priority: STAT, Start date: 04/27/19 10:16:00 CREW DISPATCHER, Stop date: 04/27/19 10:16:00 CREW DISPATCHER Ceftriaxone 2020-0 No 1 gm, Memor ia 2-26 Route: IM, l 16:16: Drug form: Zen 00 PDR/INJ, ONCE, Dosing Weight 113.636, kg, Priority: STAT, Start date: 04/27/19 10:16:00 CREW DISPATCHER, Stop date: 04/27/19 10:16:00 CREW DISPATCHER Ceftriaxone 2020-0 No 1 gm, Memor ia 2 Route: IM, l 16:16: Drug form: [place] 00 PDR/INJ, ONCE, Dosing Weight 113.636, kg, Priority: STAT, Start date: 04/27/19 10:16:00 CREW DISPATCHER, Stop date: 04/27/19 10:16:00 CREW DISPATCHER Ceftriaxone 2020-0 No 1 gm, Memor ia 04-27 Route: IM, l 16:16: Drug form: Zen PDR/INJ, ONCE, Dosing Weight 113.636, kg, Priority: STAT, Start date: 04/27/19 10:16:00 CREW DISPATCHER, Stop date: 04/27/19 10:16:00 CREW DISPATCHER amLODIPine 2020-0 Yes 5 mg = 1 Mem oria 5 mg oral 1-31 tab, PO, l tablet 22:40: Daily, # [place] 00 90 tab, 3 Refill(s), Pharmacy: [facility] #[id number] atorvastati 2020-0 Yes 20 mg = 1 M emoria n 20 mg 1-31 tab, PO, l oral tablet 22:40: Bedtime, # [place] 00 90 tab, 2 Refill(s), Pharmacy: [facility] #[id number] amLODIPine 2020-0 Yes 5 mg = 1 Mem oria 5 mg oral 1-31 tab, PO, l tablet 22:40: Daily, # [place] 00 90 tab, 3 Refill(s), Pharmacy: [facility] #[id number] atorvastati 2020-0 Yes 20 mg = 1 M emoria n 20 mg 1-31 tab, PO, l oral tablet 22:40: Bedtime, # Zen 00 90 tab, 2 Refill(s), Pharmacy: [facility] #[id number] amLODIPine 2020-0 Yes 5 mg = 1 Mem oria 5 mg oral 1-31 tab, PO, l tablet 22:40: Daily, # Zen 00 90 tab, 3 Refill(s), Pharmacy: [facility] #[id number] atorvastati 2020-0 Yes 20 mg = 1 M emoria n 20 mg 1-31 tab, PO, l oral tablet 22:40: Bedtime, # [place] 00 90 tab, 2 Refill(s), [id number] amLODIPine 2020-0 Yes 5 mg = 1 Mem oria 5 mg oral 1-31 tab, PO, l tablet 22:40: Daily, # Zen 00 90 tab, 3 Refill(s), [id number] atorvastati 2020-0 Yes 20 mg = 1 M emoria n 20 mg 1-31 tab, PO, l oral tablet 22:40: Bedtime, # [place] 00 90 tab, 2 Refill(s), [id number] atorvastati 2020-0 No 20 mg = 1 M emoria n 20 mg 1-31 tab, PO, l oral tablet 22:39: Bedtime, # [place] 00 90 tab, 3 Refill(s) amLODIPine 2020-0 No 5 mg = 1 Mem oria 5 mg oral 1-31 tab, PO, l tablet 22:39: Daily, # Zen 00 90 tab, 1 Refill(s) atorvastati 2020-0 No 20 mg = 1 M emoria n 20 mg 1-31 tab, PO, l oral tablet 22:39: Bedtime, # Zen 00 90 tab, 3 Refill(s) atorvastati 2020-0 No 20 mg = 1 M emoria n 20 mg 1-31 tab, PO, l oral tablet 22:39: Bedtime, # [place] 00 90 tab, 3 Refill(s) amLODIPine 2020-0 No 5 mg = 1 Mem oria 5 mg oral 1-31 tab, PO, l tablet 22:39: Daily, # Zen 00 90 tab, 1 Refill(s) amLODIPine 2020-0 No 5 mg = 1 Mem oria 5 mg oral 1-31 tab, PO, l tablet 22:39: Daily, # [place] 00 90 tab, 1 Refill(s) atorvastati 2020-0 [...] A DAY FOR powder 90 DAYS cyclobenzap 0 Yes 10 mg = 1 M emoria [...] 00 PAIN 30 MG Oral Tablet albuterol 0 Yes INHALE 2 Jonathan kayden 90 mcg/inh [...] tab, PO, l tablet 14:16: BID, 1 [place] 00 Refill(s) carvedilol 2019-0 Yes 6.25 mg = Me moria 6.25 mg 5-24 1 tab, PO, l oral tablet 14:21: Q12H, # 60 Zen 00 tab, 5 Refill(s), Pharmacy: [facility] #[id number] atorvastati Yes 10 mg = 1 M emoria n 10 mg 5-24 tab, PO, l oral tablet 14:21: Bedtime, # Zen 00 30 tab, 5 Refill(s), Pharmacy: [facility] #[id number] carvedilol 2019- Yes 6.25 mg = Me moria 6.25 mg 5-24 1 tab, PO, l oral tablet 14:21: Q12H, # 60 [place] 00 tab, 5 Refill(s), Pharmacy: [facility] #[id number] atorvastati 2018- Yes 10 mg = 1 M emoria n 10 mg 5-24 tab, PO, l oral tablet 14:21: Bedtime, # Zen 00 30 tab, 5 Refill(s), Pharmacy: [facility] #[id number] carvedilol 2018- Yes 6.25 mg = Me moria 6.25 mg 5-24 1 tab, PO, l oral tablet 14:21: Q12H, # 60 Zen 00 tab, 5 Refill(s), Pharmacy: [facility] #[id number] atorvastati Yes 10 mg = 1 M emoria n 10 mg 5-24 tab, PO, l oral tablet 14:21: Bedtime, # [place] 00 30 tab, 5 Refill(s), Pharmacy: [facility] #[id number] carvedilol 2018- Yes 6.25 mg = Me moria 6.25 mg 5-24 1 tab, PO, l oral tablet 14:21: Q12H, # 60 [place] 00 tab, 5 Refill(s), Pharmacy: [facility] #[id number] atorvastati 2018- Yes 10 mg = 1 M emoria n 10 mg 5-24 tab, PO, l oral tablet 14:21: Bedtime, # [place] 00 30 tab, 5 Refill(s), Pharmacy: [facility] #[id number] carvedilol 2018- No 3.125 mg = M emoria 3.125 mg 4-24 1 tab, PO, l oral tablet 17:20: BID, 0 Herm nora 00 Refill(s) calcitriol 2018- Yes 0.25 Memoria 0.25 mcg 4-24 microgram l oral 17:20: = 1 cap, Zen capsule 00 PO, Daily, 0 Refill(s) tamsulosin 2019 Yes 0.4 mg = 1 M emoria 0.4 mg oral 4-24 cap, PO, l capsule 17:20: Daily, 0 Oni n 00 Refill(s) carvedilol 2018-0 No 3.125 mg = M emoria 3.125 mg 4-24 1 tab, PO, l oral tablet 17:20: BID, 0 Herm nora 00 Refill(s) calcitriol 0 Yes 0.25 Memoria 0.25 mcg 4-24 microgram l oral 17:20: = 1 cap, [place] capsule 00 PO, Daily, 0 Refill(s) tamsulosin Yes 0.4 mg = 1 M emoria 0.4 mg oral 4-24 cap, PO, l capsule 17:20: Daily, 0 Oni n 00 Refill(s) carvedilol 2018- No 3.125 mg = M [...] Daily, 0 Oni n 00 Refill(s) carvedilol 2018- No 3.125 mg = M emoria 3.125 mg 4-24 1 tab, PO, l oral tablet 17:20: BID, 0 Herm nora 00 Refill(s) calcitriol Yes 0.25 Memoria 0.25 mcg 4-24 microgram l oral 17:20: = 1 cap, Zen capsule 00 PO, Daily, 0 Refill(s) tamsulosin 2018-0 Yes 0.4 mg = 1 M emoria 0.4 mg oral 4-24 cap, PO, l capsule 17:20: Daily, 0 Oni n 00 Refill(s) metoprolol 0 Yes 50 mg = 1 Me moria tartrate 50 2-06 tab, PO, l mg oral 01:26: Daily [place] tablet metoprolol Yes 50 mg = 1 Me moria tartrate 50 2-06 tab, PO, l mg oral :26: Daily [place] tablet metoprolol Yes 50 mg = 1 Me moria tartrate 50 2-06 tab, PO, l mg oral :26: Daily [place] tablet metoprolol Yes 50 mg = 1 Me moria tartrate 50 2-06 tab, PO, l mg oral 01:26: Daily Zen tablet carvedilol Yes 12.5 mg = Me moria 12.5 mg 2-06 1 tab, PO, l oral tablet 01:24: BID, WITH H FOOD carvedilol Yes 12.5 mg = Me moria 12.5 mg 2-06 1 tab, PO, l oral tablet 01:24: BID, WITH H erm FOOD carvedilol Yes 12.5 mg = Me moria 12.5 mg 2-06 1 tab, PO, l oral tablet 01:24: BID, WITH H erm FOOD carvedilol Yes 12.5 mg = Me [...] tab, PO, l tablet 00:10: Daily, # [place] 00 30 tab, 0 Refill(s) amLODIPine Yes 10 mg = 1 Me moria 10 mg oral 2-06 tab, PO, l tablet 00:10: Daily, # [place] 00 30 tab, 0 Refill(s) amLODIPine Yes 10 mg = 1 Me moria 10 mg oral 2-06 tab, PO, l tablet 00:10: Daily, # Zen 00 30 tab, 0 Refill(s) Metoprolol Yes 25 mg = Jonathan kayden Tartrate 50 2-05 0.5 tab, l mg oral 23:05: PO, BID [place] tablet magnesium Yes 400 mg = 1 Me moria oxide 400 2-05 tab, PO, l mg oral 23:05: Daily Zen tablet Metoprolol Yes 25 mg = Jonathan kayden Tartrate 50 2-05 0.5 tab, l mg oral 23:05: PO, BID Zen tablet magnesium Yes 400 mg = 1 Me moria oxide 400 2-05 tab, PO, l mg oral 23:05: Daily Zen tablet Metoprolol Yes 25 mg = Jonathan kayden Tartrate 50 2-05 0.5 tab, l mg oral 23:05: PO, BID Zen tablet magnesium Yes 400 mg = 1 Me moria oxide 400 2-05 tab, PO, l mg oral 23:05: Daily Zen tablet Metoprolol Yes 25 mg = Jonathan kayden Tartrate 50 2-05 0.5 tab, l mg oral 23:05: PO, BID [place] tablet magnesium Yes 400 mg = 1 Me moria oxide 400 2-05 tab, PO, l mg oral 23:05: Daily Zen tablet Glipizide Yes 10 mg = 1 Mem oria 10 MG Oral 2-04 tab, PO, l Tablet 20:52: Daily, 0 [place] 00 Refill(s) pravastatin Yes 80 mg = [...] tab, PO, l tablet 20:52: Daily, 0 [place] 00 Refill(s) Doxepin Yes 6 mg, PO, Memor ia 2-04 Bedtime, 0 l 20:52: Refill(s) Zen 00 carvedilol No 3.125 mg = M emoria 3.125 mg 2-04 1 tab, PO, l oral tablet 20:52: BID, 0 Herm Refill(s) losartan 25 Yes 25 mg = 1 M emoria mg oral 2-04 tab, PO, l tablet 20:52: Daily, 0 [place] Refill(s) Ranitidine Yes 150 mg = 1 [...] tab, PO, l tablet, 20:52: BID, 0 [place] extended 00 Refill(s) release allopurinol Yes 300 mg = 1 Memoria 300 mg oral 2-04 tab, PO, l tablet 20:52: Daily, 0 [place] 00 Refill(s) Doxepin Yes 6 mg, PO, Memor ia 2-04 Bedtime, 0 l 20:52: Refill(s) [place] 00 carvedilol No 3.125 mg = M [...] tab, PO, l tablet 20:52: Daily, 0 [place] Refill(s) Amlodipine No 10 mg, PO, M [...] ia 2-04 Bedtime, 0 l 20:52: Refill(s) carvedilol No 3.125 mg = M emoria 3.125 mg 2-04 1 tab, PO, l oral tablet 20:52: BID, 0 Herm noar Refill(s) losartan 25 Yes 25 mg = [...] tab, PO, l tablet 20:52: Daily, 0 [place] 00 Refill(s) Amlodipine No 10 mg, PO, M emoria 2-04 Daily, 0 l 20:52: Refill(s) [place] Esomeprazol Yes 40 mg = 1 M [...] 2-04 Bedtime, 0 l 20:52: Refill(s) Zen carvedilol No 3.125 mg = M emoria [...] l Tablet 20:52: Bedtime, 0 Mehreen nn Refill(s) Adult Yes 81 mg = 1 [...] 11-03 (Same as: l odium 20:02: Phos-NaK) [place] phosphate 00 Each 1.5 250 mg-45 gm pkt has mg-298 mg 250mg oral tablet phosphorou s. Mix w/2.5oz water and stir. potassium No Notes: Memori a phosphate-s 11-03 (Same as: l odium 20:02: Phos-NaK) [place] phosphate 00 Each 1.5 250 mg-45 gm pkt has mg-298 mg 250mg oral tablet phosphorou s. Mix w/2.5oz water and stir. potassium No Notes: Memori a phosphate-s 11-03 (Same as: l odium 20:02: Phos-NaK) Zen phosphate 00 Each 1.5 250 mg-45 gm pkt has mg-298 mg 250mg oral tablet phosphorou s. Mix w/2.5oz water and stir. potassium No Notes: Memori a phosphate-s - (Same as: l odium 20:02: Phos-NaK) Zen phosphate 00 Each 1.5 250 mg-45 gm pkt has mg-298 mg 250mg oral tablet phosphorou s. Mix w/2.5oz water and stir. potassium No Notes: Memori a phosphate 9- (Same as: l 155 MG / 19:54: K-Phos Zen Sodium 00 Neutral, Phosphate, Phospha Dibasic 852 250 MG / Sodium Neutral) Phosphate, Monobasic 130 MG Oral Tablet [K-Phos Neutral] potassium No Notes: Memori a phosphate 9- (Same as: l 155 MG / 19:54: K-Phos Zen Sodium 00 Neutral, Phosphate, Phospha Dibasic 852 250 MG / Sodium Neutral) Phosphate, Monobasic 130 MG Oral Tablet [K-Phos Neutral] potassium No Notes: Memori a phosphate 9- (Same as: l 155 MG / 19:54: K-Phos [place] Sodium 00 Neutral, Phosphate, Phospha Dibasic 852 [...] WASTE: F/P l 19:52: - Sink; E [place] - [facility] Magnesium No Notes: Memori a Sulfate - WASTE: F/P l 19:52: - Sink; E Zen - [facility] Trash [facility] Magnesium No Notes: Memori a Sulfate 9- WASTE: F/P l 19:52: - Sink; E [place] - [facility] Magnesium No Notes: Memori a Sulfate 11-03 WASTE: F/P l 19:52: - Sink; E [place] - [facility] GI cocktail No Notes: Jonathan kayden 9-04 G.I. l 15:34: Cocktail = [place] 00 antacid with simethicon e 22.5 mL - lidocaine viscous 7.5 mL Sodium 2017-0 No 1,000 mL, Memori a Chloride 9-04 2,000 l 0.9% IV 15:34: ml/hr, Zen (Sodium 00 Infuse Chloride Over: 30 0.9% minutes, (Bolus) IV) Route: IV, 1,000, Drug form: INJ, ONCE, Priority: STAT, Dosing Weight 118.182 kg, Start date: 11/03/16 10:34:00 CDT, Duration: 1 doses or times, Stop date: 11/03/16 10:34:00 CDT Saline No Notes: Memoria Flush 0.9% 9-04 (Same as: l 15:34: BD [place] 00 Posiflush) GI cocktail No Notes: Jonathan kayden 9-04 G.I. l 15:34: Cocktail = Zen 00 antacid with simethicon e 22.5 mL - lidocaine viscous 7.5 mL Sodium 2017-0 No 1,000 mL, Memori a Chloride 9-04 2,000 l 0.9% IV 15:34: ml/hr, Zen (Sodium 00 Infuse Chloride Over: 30 0.9% minutes, (Bolus) IV) Route: IV, 1,000, Drug form: INJ, ONCE, Priority: STAT, Dosing Weight 118.182 kg, Start date: 11/03/16 10:34:00 CDT, Duration: 1 doses or times, Stop date: 11/03/16 10:34:00 CDT Saline No Notes: Memoria Flush 0.9% 9-04 (Same as: l 15:34: BD [place] 00 Posiflush) GI cocktail No Notes: Jonathan kayden 9-04 G.I. l 15:34: Cocktail = [place] 00 antacid with simethicon e 22.5 mL - lidocaine viscous 7.5 mL Sodium 2017-0 No 1,000 mL, Memori a Chloride 9-04 2,000 l 0.9% IV 15:34: ml/hr, [place] (Sodium 00 Infuse Chloride Over: 30 0.9% minutes, (Bolus) IV) Route: IV, 1,000, Drug form: INJ, ONCE, Priority: STAT, Dosing Weight 118.182 kg, Start date: 11/03/16 10:34:00 CDT, Duration: 1 doses or times, Stop date: 11/03/16 10:34:00 CDT Saline No Notes: Memoria Flush 0.9% 11-03 (Same as: l 15:34: BD Zen Posiflush) GI cocktail No Notes: Jonathan kayden 11-03 [...] 0.9% 11-03 (Same as: l 15:34: BD [place] Posiflush) clindamycin 2015-0 Yes 300 mg = 1 Memoria 300 mg oral 7-11 cap, PO, l capsule 21:49: TID, X 10 Mehreen nn 00 day, # 30 cap, 0 Refill(s) clindamycin 0 Yes 300 mg = 1 Memoria 300 mg oral 7-11 cap, PO, l capsule 21:49: TID, X 10 Mehreen nn 00 day, # 30 cap, 0 Refill(s) clindamycin 2016-0 Yes 300 mg = 1 Memoria 300 mg oral 7-11 cap, PO, l capsule 21:49: TID, X 10 Mehreen nn 00 day, # 30 cap, 0 Refill(s) clindamycin 0 Yes 300 mg = 1 Memoria 300 mg oral 7-11 cap, PO, l capsule 21:49: TID, X 10 Mehreen nn 00 day, # 30 cap, 0 Refill(s) GI cocktail No Notes: Jonatahn kayden 7-11 G.I. l 21:05: Cocktail = [place] 00 antacid with simethicon e 22.5 mL - lidocaine viscous 7.5 mL GI cocktail No Notes: Jonathan kayden 7-11 G.I. l 21:05: Cocktail = [place] 00 antacid with simethicon e 22.5 mL [...] Chloride 4-20 1,000 l 0.154 17:27: ml/hr, [place] MEQ/ML 00 Infuse Injectable Over: 1 Solution hr, Route: IV, 1,000, Drug form: INJ, ONCE, Priority: STAT, Dosing Weight 118.182 kg, Start date: 06/20/15 12:27:00 CDT, Duration: 1 doses or times, Stop date: 06/20/15 12:27:00 CDT Sodium 2016-0 No 1,000 mL, Memori a Chloride 4-20 1,000 l 0.154 17:27: ml/hr, Zen MEQ/ML 00 Infuse Injectable Over: 1 Solution hr, Route: IV, 1,000, Drug form: INJ, ONCE, Priority: STAT, Dosing Weight 118.182 kg, Start date: 06/20/15 12:27:00 CDT, Duration: 1 doses or times, Stop date: 06/20/15 12:27:00 CDT Sodium 2016-0 No 1,000 mL, Memori a Chloride 4-20 1,000 l 0.154 17:27: ml/hr, [place] MEQ/ML 00 Infuse Injectable Over: 1 Solution hr, Route: IV, 1,000, Drug form: INJ, ONCE, Priority: STAT, Dosing Weight 118.182 kg, Start date: 06/20/15 12:27:00 CDT, Duration: 1 doses or times, Stop date: 06/20/15 12:27:00 CDT Sodium 2016-0 No 1,000 mL, [facility] Chloride 4-20 1,000 l 0.154 17:27: ml/hr, [place] MEQ/ML 00 Infuse Injectable Over: 1 Solution hr, Route: IV, 1,000, Drug form: INJ, ONCE, Priority: STAT, Dosing Weight 118.182 kg, Start date: 06/20/15 12:27:00 CDT, Duration: 1 doses or times, Stop date: 06/20/15 12:27:00 CDT Zofran 2015-0 No Notes: [facility] 4-20 (Same as: l 16:: Zofran) Zen MEDICATION WASTE Product Size: 4 mg Product Wasted: ___ mg Zofran 0 No Notes: [facility] 4-20 (Same as: l 16:: Zofran) Zen 00 MEDICATION WASTE Product Size: [...] l 16:00: as:MORPhin [facility] 00 e Sulfate) Morphine No Notes: [facility] 4-20 (Same l 16:00: as:MORPhin [place] 00 e Sulfate) Morphine No Notes: [facility] 4-20 (Same l 16:00: as:MORPhin [place] 00 e Sulfate) Morphine No Notes: [facility] 4-20 (Same l 16:00: as:MORPhin [place] 00 e Sulfate) Saline No Notes: [facility] Flush 0.9% 4-20 (Same as: l 15:18: BD [place] 00 Posiflush) Saline No Notes: [facility] Flush 0.9% 4-20 (Same as: l 15:18: BD [facility] Posiflush) Saline No Notes: [facility] Flush 0.9% 4-20 (Same as: l 15:18: BD [place] Posiflush) Saline No Notes: [facility] Flush 0.9% 4-20 (Same as: l 15:18: BD [place] 00 Posiflush) acetaminoph acetaminoph Yes 1 3xD C [...] Date Status Commen ts Source Name Name [id number]-2020-12-25 Completed Jonathan [id number] 00:00:00 [id number]-[id number]-2020-12-25 Completed Jonathantyler [id number] 00:00:00 [id number] 2020-12-25 Completed Jonathan rial Zen [id number] 00:00:00 [id number] 2020-12-25 Completed Jonathan rial [place] [id number] 00:00:00 zoster vaccine, 2020-10-13 Completed [facility] [place] inactivated 00:00:00 zoster vaccine, 2020-10-13 Completed [facility] inactivated 00:00:00 zoster vaccine, 2020-10-13 Completed [facility] [place] inactivated 00:00:00 zoster vaccine, 2020-10-13 Completed [facility] inactivated 00:00:00 zoster vaccine, 2020-06-14 Completed [facility] inactivated 14:48:00 pneumococcal 2020-06-14 Completed [facility] 13-valent vaccine 14:48:00 hepatitis B adult 2020-06-14 Completed [facility] [place] vaccine 14:48:00 zoster vaccine, 2020-06-14 Completed [facility] inactivated 14:48:00 pneumococcal 2020-06-14 Completed [facility] sarmiento 13-valent vaccine 14:48:00 hepatitis B adult 2020-06-14 Completed [facility] [place] vaccine 14:48:00 zoster vaccine, 2020-06-14 Completed [facility] inactivated 14:48:00 pneumococcal 2020-06-14 Completed [facility] sarmiento 13-valent vaccine 14:48:00 hepatitis B adult 2020-06-14 Completed [facility] vaccine 14:48:00 zoster vaccine, 2020-06-14 Completed [facility] inactivated 14:48:00 pneumococcal 2020-06-14 Completed [facility] sarmiento 13-valent vaccine 14:48:00 hepatitis B adult 2020-06-14 Completed [facility] [place] vaccine 14:48:00 PQIL-GyC-5FILRD-19mR 2020-04-25 Completed [facility] NABNT-[id number] 18:12:00 <sup>1</sup> GDHG-XlA-6VUHLP-19mR 2020-04-25 Completed [facility] [place] NABNT-[id number] 18:12:00 <sup>1</sup> XQEI-KpD-2CQWRA-19mR 2020-04-25 Completed Jonathan Zaldivar NABNT-[id number] 18:12:00 <sup>1</sup> GSAN-QuZ-1MWNLE-19mR 2020-04-25 Completed [facility] Zaldivar NABNT-[id number] 18:12:00 <sup>1</sup> PFIZER COVID-19 MRNA 2020-04-25 Completed [facility] VACCINATION 00:00:00 [facility] PFIZER COVID-19 MRNA 2020-04-25 Completed [facility] VACCINATION 00:00:00 [facility] PFIZER COVID-19 MRNA 2020-04-25 Completed [facility] VACCINATION 00:00:00 [facility] PFIZER COVID-19 MRNA 2020-04-25 Completed [facility] VACCINATION 00:00:00 [facility] PFIZER COVID-19 MRNA 2020-04-25 Completed [facility] VACCINATION 00:00:00 [facility] PFIZER COVID-19 MRNA 2020-04-25 Completed [facility] VACCINATION 00:00:00 [facility] PFIZER COVID-19 MRNA 2020-04-25 Completed [facility] VACCINATION 00:00:00 [facility] PFIZER COVID-19 MRNA 2020-04-25 Completed [facility] VACCINATION 00:00:00 [facility] PFIZER COVID-19 MRNA 2020-04-25 Completed [facility] VACCINATION 00:00:00 [facility] PFIZER COVID-19 MRNA 2020-04-25 Completed [facility] VACCINATION 00:00:00 [facility] PFIZER COVID-19 MRNA 2020-04-25 Completed [facility] VACCINATION 00:00:00 [facility] PFIZER COVID-19 MRNA 2020-04-25 Completed [facility] VACCINATION 00:00:00 [facility] PFIZER COVID-19 MRNA 2020-04-25 Completed [facility] VACCINATION 00:00:00 [facility] PFIZER COVID-19 MRNA 2020-04-25 Completed [facility] VACCINATION 00:00:00 [facility] PFIZER COVID-19 MRNA 2020-04-25 Completed [facility] VACCINATION 00:00:00 [facility] PFIZER COVID-19 MRNA 2020-04-25 Completed [facility] VACCINATION 00:00:00 [facility] PFIZER COVID-19 MRNA 2020-04-25 Completed [facility] VACCINATION 00:00:00 [facility] PFIZER COVID-19 MRNA 2020-04-25 Completed [facility] VACCINATION 00:00:00 [facility] PFIZER COVID-19 MRNA 2020-04-25 Completed [facility] VACCINATION 00:00:00 [facility] PFIZER COVID-19 MRNA 2020-04-25 Completed [facility] VACCINATION 00:00:00 [facility] PFIZER COVID-19 MRNA 2020-04-25 Completed [facility] VACCINATION 00:00:00 [facility] PFIZER COVID-19 MRNA 2020-04-25 Completed [facility] VACCINATION 00:00:00 [facility] PFIZER COVID-19 MRNA 2020-04-25 Completed [facility] VACCINATION 00:00:00 [facility] PFIZER COVID-19 MRNA 2020-04-25 Completed [facility] VACCINATION 00:00:00 [facility] COVID-19 MRNA 2020-04-25 Completed [facility] VACCINATION 00:00:00 [facility] AKXW-VyD-0VSGRP-[facility] 2020-04-04 Completed [facility] [place] NABNT-[id number] 15:57:00 <sup>1</sup> WYTQ-EzG-[id number]-19 2020-04-04 Completed [facility] NABNT-[id number] 15:57:00 <sup>2</sup> PUTA-BgD-9MNHRQ-19 2020-04-04 Completed [facility] [place] NABNT-[id number] 15:57:00 <sup>1</sup> OLDP-NxR-8MZNYR-19 2020-04-04 Completed [facility] [place] NABNT-[id number] 15:57:00 <sup>2</sup> UKFG-DkA-6JQCQZ-19 2020-04-04 Completed [facility] [place] NABNT-[id number] 15:57:00 <sup>1</sup> JWCJ-JfR-1THLFF-19 2020-04-04 Completed [facility] [place] NABNT-[id number] 15:57:00 <sup>2</sup> ZHCQ-MaL-6ZZKFC-19 2020-04-04 Completed [facility] NABNT-[id number] 15:57:00 <sup>1</sup> XFWY-LaM-1WZCBM-19 2020-04-04 Completed [facility] NABNT-[id number] 15:57:00 <sup>2</sup> PFIZER COVID-19 MRNA 2020-04-04 Completed [facility] VACCINATION 00:00:00 [facility] PFIZER COVID-19 MRNA 2020-04-04 Completed [facility] VACCINATION 00:00:00 [facility] PFIZER COVID-19 MRNA 2020-04-04 Completed [facility] VACCINATION 00:00:00 [facility] PFIZER COVID-19 MRNA 2020-04-04 Completed [facility] VACCINATION 00:00:00 [facility] PFIZER COVID-19 MRNA 2020-04-04 Completed [facility] VACCINATION 00:00:00 [facility] PFIZER COVID-19 MRNA 2020-04-04 Completed [facility] VACCINATION 00:00:00 [facility] PFIZER COVID-19 MRNA 2020-04-04 Completed [facility] VACCINATION 00:00:00 [facility] PFIZER COVID-19 MRNA 2020-04-04 Completed [facility] VACCINATION 00:00:00 [facility] PFIZER COVID-19 MRNA 2020-04-04 Completed [facility] VACCINATION 00:00:00 [facility] PFIZER COVID-19 MRNA 2020-04-04 Completed [facility] VACCINATION 00:00:00 [facility] PFIZER COVID-19 MRNA 2020-04-04 Completed [facility] VACCINATION 00:00:00 [facility] PFIZER COVID-19 MRNA 2020-04-04 Completed [facility] VACCINATION 00:00:00 [facility] PFIZER COVID-19 MRNA 2020-04-04 Completed [facility] VACCINATION 00:00:00 [facility] PFIZER COVID-19 MRNA 2020-04-04 Completed [facility] VACCINATION 00:00:00 [facility] PFIZER COVID-19 MRNA 2020-04-04 Completed [facility] VACCINATION 00:00:00 [facility] PFIZER COVID-19 MRNA 2020-04-04 Completed [facility] VACCINATION 00:00:00 [facility] PFIZER COVID-19 MRNA 2020-04-04 Completed [facility] VACCINATION 00:00:00 [facility] PFIZER COVID-19 MRNA 2020-04-04 Completed [facility] VACCINATION 00:00:00 [facility] PFIZER COVID-19 MRNA 2020-04-04 Completed [facility] VACCINATION 00:00:00 [facility] PFIZER COVID-19 MRNA 2020-04-04 Completed [facility] VACCINATION 00:00:00 [facility] PFIZER COVID-19 MRNA 2020-04-04 Completed [facility] VACCINATION 00:00:00 [facility] PFIZER COVID-19 MRNA 2020-04-04 Completed [facility] VACCINATION 00:00:00 [facility] PFIZER COVID-19 MRNA 2020-04-04 Completed [facility] VACCINATION 00:00:00 [facility] PFIZER COVID-19 MRNA 2020-04-04 Completed [facility] VACCINATION 00:00:00 [facility] PFIZER COVID-19 MRNA 2020-04-04 Completed [facility] VACCINATION 00:00:00 [facility] varicella virus 2019-04-01 Completed [facility] vaccine 17:12:00 varicella virus 2019-04-01 Completed [facility] vaccine 17:12:00 varicella virus 2019-04-01 Completed [facility] vaccine 17:12:00 varicella virus 2019-04-01 Completed [facility] vaccine 17:12:00 measles/mumps/rubell 2019-04-01 Completed [facility] a virus vaccine 17:05:00 measles/mumps/rubell 2019-04-01 Completed [facility] a virus vaccine 17:05:00 measles/mumps/rubell 2019-04-01 Completed [facility] a virus vaccine 17:05:00 measles/mumps/rubell 2019-04-01 Completed [facility] [place] a virus vaccine 17:05:00 Vital Signs Vital Name Observation Time Observation Value Comments Source Systolic blood 2022-05-05 111 mm[Hg] [facility] pressure 09:20:00 Diastolic blood 2022-05-05 72 mm[Hg] [facility] pressure 09:20:00 Heart rate 2022-05-05 84 /min [facility] 09:20:00 Body temperature 2022-05-05 36.56 Zari [facility] 09:20:00 Body height 2022-05-05 188 cm [facility] 09:20:00 Body weight 2022-05-05 105.235 kg [facility] 09:20:00 BMI 2022-05-05 29.79 kg/m2 [facility] 09:20:00 Height 2022-04-29 187.96 CM 20:08:00 Weight 2022-04-29 109 KG 20:08:00 Height 2022-04-26 187.96 CM 19:27:00 Weight 2022-04-26 105.23 KG 19:27:00 Systolic blood 2021-10-28 149 mm[Hg] [facility] pressure 13:19:00 Diastolic blood 2021-10-28 75 mm[Hg] [facility] pressure 13:19:00 Heart rate 2021-10-28 81 /min [facility] 13:19:00 Body temperature 2021-10-28 36.56 Z[facility] 13:19:00 Body height 2021-10-28 188 cm [facility] 13:19:00 Body weight 2021-10-28 110 kg [facility] 13:19:00 BMI 2021-10-28 31.14 kg/m2 [facility] 13:19:00 [facility] 2022[facility]06-17 [facility] 12:[facility] Systolic (mm Hg) 2022-06-17 [facility] rmann 12:22:00 Diastolic (mm Hg) 2022-06-17 [facility] ermann 12:22:00 Height 2022-06-17 180 cm [facility] n 12:22:00 Weight 2022-06-17 [facility] n 12:22:00 BMI Calculated 2022-06-17 [facility] nora 12:22:00 Pulse Rate 2022-04-29 75 /min [facility] 21:48:00 [facility] (LUF/HUANG/SA) O2% BldC Oximetry 2022-04-29 95 % [facility] (LUF/HUANG/SA) BP Systolic 2022-04-29 150 mm[Hg] [facility] 21:48:00 [facility] (LUF/HUANG/SA) BP Diastolic 2022-04-29 72 mm[Hg] [facility] 21:48:00 [facility] (LUF/HUAGN/SA) Body Temperature 2022-04-29 97.9 [degF] [facility] (LUF/HUANG/SA) Respiratory Rate 2022-04-29 18 /min [facility] 20:08[facility]00 [facility] (LUF/HUANG/SA) Height 2022-04-29 74 [in_i] [facility] 20:08:00 [facility] (LUF/HUANG/SA) Weight 2022-04-[address] [facility] 20:08:00 [facility] (LUF/HUANG/SA) BMI (Body Mass 2022-04-29 31.1 kg/m2 [facility] Index) 20:08:00 [facility] (LUF/HUANG/SA) Heart Rate 2022-04-26 83 /min [facility] 21:53:00 [facility] (LUF/HUANG/SA) Pulse Rate 2022-04-26 84 /min [facility] 21:53:00 [facility] (LUF/HUANG/SA) Respiratory Rate 2022-04-26 15 /min [facility] 21:53:00 [facility] (LUF/HUANG/SA) O2% BldC Oximetry 2022-04-26 92 % [facility] 21:53:00 [facility] (LUF/HUANG/SA) BP Systolic 2022-04-26 138 mm[Hg] [facility] 21:53:00 [facility] (LUF/HUANG/SA) BP Diastolic 2022-04-26 84 mm[Hg] [facility] 21:53:00 [facility] (LUF/HUANG/SA) Body Temperature 2022-04-26 98 [degF] [facility] 19:27:00 [facility] (LUF/HUANG/SA) Height 2022-04-26 74 [in_i] [facility] 19:27:00 [facility] (LUF/HUANG/SA) Weight 2022-04-26 232 [lb_av] [facility] 19:27:00 [facility] (LUF/HUANG/SA) BMI (Body Mass 2022-04-26 30 kg/m2 [facility] Index) 19:27:00 [facility] (LUF/HUANG/SA) Respitory Rate 2021-07-23 [facility] Herm nora 13:08:00 Systolic (mm Hg) 2021-07-23 [facility] rmann 13:08:00 Diastolic (mm Hg) 2021-07-23 [facility] ermann 13:08:00 Heart Rate 2021-07-23 [facility] Oni n 12:50:00 Respitory Rate 2021-07-23 [facility] Herm nora 12:50:00 Systolic (mm Hg) 2021-07-23 [facility] rmann 12:50:00 Diastolic (mm Hg) 2021-07-23 [facility] ermann 12:50:00 Heart Rate 2021-07-23 [facility] Oni n 12:40:00 Respitory Rate 2021-07-23 [facility] Herm nora 12:40:00 Systolic (mm Hg) 2021-07-23 [facility] rmann 12:40:00 Diastolic (mm Hg) 2021-07-23 [facility] ermann 12:40:00 Temperature Oral 2021-07-23 36.3 Zari [facility] rmann (F) 12:30:00 Heart Rate 2021-07-23 [facility] Oni n 12:30:00 Temperature Oral 2021-07-23 36.7 Zari [facility] rmann (F) 11:18:00 Height 2021-07-[address] [facility] Oni n 11:18:00 Weight 2021-07-23 [facility] Oni n 11:18:00 Height 2021-07-[address] [facility] Oni n 18:07:00 Weight 2021-07-22 [facility] Oni n 18:07:00 Systolic (mm Hg) 2021-07-02 [facility] rmann 18:31:00 Diastolic (mm Hg) 2021-07-02 [facility] ermann 18:31:00 Heart Rate 2021-07-02 [facility] Oni n 18:31:00 Respitory Rate 2021-07-02 [facility] Herm nora 18:31:00 Height 2021-07-[address] [facility] Oni n 18:31:00 Weight 2021-07-02 [facility] Oni n 18:31:00 BMI Calculated 2021-07-02 [facility] Joseph nora 18:31:00 Systolic blood 2021-05-24 137 mm[Hg] [facility] pressure [...] BMI 2021-05-20 29.83 kg/m2 [facility] 22:57:00 Hospital Height 2021-05-[address] [facility] Oni n 13:53:00 Weight 2021-05-09 [facility] 13:53:00 BMI Calculated 2021-05-09 [facility] 13:53:00 Heart Rate 2021-04-08 [facility] 18:21:00 Systolic (mm Hg) 2021-04-08 [facility] rmann 18:21:00 Diastolic (mm Hg) 2021-04-08 [facility] ermann 18:21:00 Height 2021-04-08 182 cm [facility] 18:21:00 Weight 2021-04-08 [facility] Oni n 18:21:00 BMI Calculated 2021-04-08 [facility] Herm nora 18:21:00 Systolic (mm Hg) 2021-02-06 [facility] rmann 16:01:00 Diastolic (mm Hg) 2021-02-06 [facility] ermann 16:01:00 Heart Rate 2021-02-06 [facility] 16:01:00 Respitory Rate 2021-02-06 [facility] nora 16:01:00 Temperature Oral 2021-02-06 97.9 F [facility] rmann (F) 16:01:00 Height 2021-02-06 180.3 cm [facility] 16:01:00 Weight 2021-02-06 [facility] 16:01:00 BMI Calculated 2021-02-06 [facility] nora 16:01:00 Oxygen saturation 2020-09-20 96 /min [facility] in [...] height 2020-07-20 188 cm [facility] 12:39:00 Hospital Systolic (mm Hg) 2020-06-14 [facility] rmann 12:58:00 Diastolic (mm Hg) 2020-06-14 [facility] 12:58:00 Heart Rate 2020-06-14 [facility] [...] 19:27:00 Temperature Oral 2020-04-25 97.0 F [facility] (F) 19:27:00 Height 2020-04-25 180.34 cm [facility] 19:27:00 Weight 2020-04-25 [facility] 19:27:00 BMI Calculated 2020-04-25 [facility]a 19:27:00 Diastolic blood 2020-04-23 82 mm[Hg] [facility] pressure 17:10:00 Position: Sitting Body height 2020-04-23 74 [in_us] [facility] 17:10:00 Weight 2020-04-23 240 [lb_av] [facility] 17:10:00 Body mass index 2020-04-23 30.81 kg/m2 [facility] (BMI) [Ratio] 17:10:00 Body temperature 2020-04-23 97.4 [degF] Method: [facility] 17:10:00 Temporal Heart Rate 2020-04-23 56 /min Location: L [facility] 17:10:00 Brachial Artery; Systolic blood 2020-04-23 186 mm[Hg] [facility]: [facility]; [facility] pressure 17:10:00 Position: Sitting Systolic (mm Hg) 2020-04-04 [facility] 13:41:00 Diastolic (mm Hg) 2020-04-04 [facility] 13:41:00 Heart Rate 2020-04-04 [facility] 13:41:00 Respitory Rate 2020-04-04 [facility] nora 13:41:00 Height 2020-04-04 182 cm [facility] 13:41:00 Weight 2020-04-04 [facility] 13:41:00 BMI Calculated 2020-04-04 [facility]a 13:41:00 Systolic blood 2019-10-24 136 mm[Hg] [facility]: E; [facility] pressure 17:12:00 Position: Sitting Diastolic blood 2019-10-24 71 mm[Hg] [facility] E[facility] pressure 17:12:00 Position: Sitting Body height 2019-10-24 74 [in_us] [facility] 17:12:00 Weight 2019-10-24 250 [lb_av] [facility] 17:12:00 Body mass index 2019-10-24 32.1 kg/m2 [facility] (BMI) [Ratio] 17:12:00 Heart Rate 2019-10-24 60 /min Location: [facility] 17:12:00 Brachial Artery; Body temperature 2019-10-24 97.8 [degF] Method: [facility] 17:12:00 Temporal Systolic (mm Hg) [...] 15:02:00 Temperature Oral 2016-11-03 98.0 F [facility] (F) 15:02:00 Systolic (mm Hg) 2015-09-10 [...] 2022-07-09 Requisition, Paper [facility] 14:42:49 [facility] AGREEMENTS AUTHORIZATIONS AND 2022-07-09 [facility]:01[facility]00 [place] [facility] POCT URINALYSIS W/O SCOPE 2022-05-05 Carmelina, [facility] 23:16:00 PSA, TOTAL AND FREE 2022-05-05 Carmelina, [facility] 14:31:00 TESTOSTERONE, FREE, TOTAL 2022-05-05 Carmelina, [facility] 14:31:00 URINE CULTURE 2022-05-05 Carmelina, [facility] 14:31:00 VITAMIN D 25 HYDROXY 2022-05-05 Carmelina, [facility] 14:31:00 POCT URINALYSIS W/O SCOPE 2021-10-28 Carmelina, [facility] 22:11:00 ESOPHAGOGASTRODUODENOSCOPY 2021-07-23 Madelin Zaldivar W/BIOPSY [id number] (N/A)<sup>1</sup> 12:27:00 CBC WITH PLATELET AND 2021-05-24 David Gonzalez DIFFERENTIAL 08:24:00 Hospital BASIC METABOLIC PANEL 2021-05-24 David Gonzalez 08:24:00 Hospital MAGNESIUM LEVEL 2021-05-24 David Gonzalez 08:24:00 Hospital PHOSPHORUS LEVEL 2021-05-24 David Gonzalez 08:24:00 Hospital ESTIMATED GFR 2021-05-24 David Gonzalez 08:24:00 Hospital SURGICAL PATHOLOGY REQUEST 2021-05-23 David Gonzalez Metho dist 20:46:00 [facility] FL ESOPHAGRAM SINGLE CONTRAST 2021-05-23 Robb Barry thodist 20:20:45 [facility] ESOPHAGOGASTRODUODENOSCOPY (EGD) 2021-05-23 Ciro Toro [facility] 17:37:00 [facility] CBC WITH PLATELET AND 2021-05-23 BrynnDavid [facility] DIFFERENTIAL 09:35:00 Hospital BASIC METABOLIC PANEL 2021-05-23 BrynnDavid [facility] 09:35:00 Hospital MAGNESIUM LEVEL 2021-05-23 [facility] 09:35:00 Hospital PHOSPHORUS LEVEL 2021-05-23 [facility] Omad [facility] 09:35:00 Hospital ESTIMATED GFR 2021-05-23 [facility] 09:35:00 Hospital NM HEPATOBILIARY W PHARM 2021-05-22 Jaret Decker Met hodist 15:49:11 [facility] ANTI-SPIKE IGG 2021-05-22 Zenia Navarro ist ANTIBODY TITER 09:37:00 [facility] CBC WITH PLATELET AND 2021-05-22 Jaret Decker ist DIFFERENTIAL 09:37:00 [facility] BASIC METABOLIC PANEL 2021-05-22 Jaret Decker Method ist 09:37:00 [facility] TROPONIN T 2021-05-22 MtgracielaJaret Jainism 09:37:00 [facility] ZCOVID-19 SEROLOGY PATIENT 2021-05-22 Zenia Navarro odist SURVEILLANCE 09:37:00 [facility] HEPATITIS B SURFACE ANTIGEN 2021-05-22 Ned Velasquez Meth odist 09:37:00 [facility] HEPATITIS B SURFACE AB, 2021-05-22 Ned Velasquezis t QUANTITATIVE 09:37:00 Hospital HEPATITIS B SURFACE ANTIBODY 2021-05-22 Ned Velasquez Met hodist 09:37:00 Hospital ESTIMATED GFR 2021-05-22 Jaret Decker [facility] 09:37:00 [facility] AEROBIC CULTURE 2021-05-22 Giancarlo Mansfield 03:08:00 Hospital ANAEROBIC CULTURE 2021-05-22 Giancarlo [place] 03:08:00 Hospital GRAM STAIN 2021-05-22 Giancarlo [place]field 03:08:00 Hospital CELL COUNT AND DIFFERENTIAL, BODY 2021-05-22 Giancarlo Mansfield FLUID 03:08:00 Hospital US ABDOMEN COMPLETE 2021-05-21 Jaret Deckeris t 20:31:16 [facility] POC GLUCOSE 2021-05-21 Jaret Decker 16:30:[address] [facility] [address] CHEST WO CONTRAST 2021-05-21 Robb Barryist 14:33:49 [facility] LACTIC ACID LEVEL, SEPSIS - NOW 2021-05-21 Giancarlo Mansfield AND REPEAT 2X EVERY 3 HOURS 08:50:00 Hosp ital CBC WITH PLATELET AND 2021-05-21 Giancarlo Mansfield DIFFERENTIAL 08:50:00 Hospital PROTHROMBIN TIME WITH INR 2021-05-21 Giancarlo Mansfield ist 08:50:00 [facility] COMPREHENSIVE METABOLIC PANEL 2021-05-21 Giancarlo Mansfield thodist [...] 04:00:38 Hospital BLOOD CULTURE, AEROBIC & 2021-05-21 Manuel, Gus Methodi st ANAEROBIC 02:47:00 Hospital TROPONIN [...] 1 VW PORTABLE 2021-05-21 Gus Jackson 00:03:55 [facility] GROUP A STREP, RAPID ANTIGEN 2021-05-20 Gus Jackson hodist 23:46:00 Hospital STREP SCREEN CULTURE 2021-05-20 Gus Jackson 23:46:00 Hospital RESPIRATORY PATHOGEN PANEL WITH 2021-05-20 Gus Jackson COVID-19 RT-PCR 23:42:00 Hospital CBC WITH PLATELET AND 2021-05-20 Gus Jackson DIFFERENTIAL 23:42:00 Hospital COMPREHENSIVE METABOLIC PANEL 2021-05-20 Gus Jackson thodist 23:42:00 Hospital LIPASE LEVEL 2021-05-20 Gsu Jackson 23:42:00 Hospital TROPONIN T 2021-05-20 Giancarlo [...] INR 2020-07-25 Jazmyn Torres Method ist 08:23:00 [facility] COMPREHENSIVE METABOLIC PANEL 2020-07-25 Jazmyn Torres thodist 08:23:00 Hospital MAGNESIUM LEVEL 2020-07-25 Jazmyn Torres 08:23:00 Hospital PHOSPHORUS LEVEL 2020-07-25 Jazmyn Torresist 08:23:00 Hospital ESTIMATED GFR 2020-07-25 Jazmyn Torresist 08:23:[address] ABDOMEN PELVIS WO CONTRAST 2020-07-25 Jazmyn Torres thodist 01:22:52 Hospital COVID-19 QUALITATIVE RT-PCR 2020-07-24 Brittni Del aVlle thodi 07:34:00 [facility] URINE CULTURE 2020-07-24 Brittni Del Valle 06:38:00 [facility] URINALYSIS SCREEN AND MICROSCOPY, 2020-07-24 Brent Del Valle WITH REFLEX TO CULTURE 06:38:00 [facility] COMPREHENSIVE METABOLIC PANEL 2020-07-24 Brittni Del Valle 06:35:00 [facility] HC COMPLETE BLD COUNT W/AUTO DIFF 2020-07-24 Eligio, Brent Dietz 06:35:00 [facility] PROTHROMBIN TIME WITH INR 2020-07-24 Brittni Del Valle odist 06:35:00 [facility] PARTIAL THROMBOPLASTIN TIME (PTT) 2020-07-24 Eligio, Brent Dietz 06:35:00 [facility] ESTIMATED GFR 2020-07-24 Brittni Del Valle 06:35:00 [facility] FL AN ELECTIVE ENDOTRACHEAL 2020-07-23 Isabelle Wetzel AIRWAY [...] Hospital BASIC METABOLIC PANEL 2020-07-[address] 09:00:00 [facility] MAGNESIUM LEVEL 2020-07-12 Dominique Nelson 09:00:00 [facility] PHOSPHORUS LEVEL 2020-07-12 Dominique Nelson 09:00:00 [facility] HC COMPLETE BLD COUNT W/AUTO DIFF 2020-07-12 Kevin Nelson 09:00:00 [facility] PARATHYROID HORMONE 2020-07-12 Dominique Nelson 09:00:00 [facility] VITAMIN D 25 HYDROXY LEVEL 2020-07-12 Dominique Nelson thodist 09:00:00 [facility] ESTIMATED GFR 2020-07-12 Dominique Nelson 09:00:00 [facility] FL AN ELECTIVE ENDOTRACHEAL 2020-07-12 Elvira Ashlee Nh thodist AIRWAY 01:07:00 [facility] LAPAROSCOPIC REMOVAL OR 2020-07-11 Dominique Nelson dist REPOSITIONING OF PERITONEAL 22:54:00 E. Hosp ital DIALYSIS CATHETER HC COMPLETE BLD COUNT W/AUTO DIFF 2020-07-11 Kieran Aquino 10:12:00 Hospital COMPREHENSIVE METABOLIC PANEL 2020-07-11 Constantin Aquino 10:12:00 Hospital MAGNESIUM LEVEL 2020-07-11 Mariajose Donato 10:12:00 [facility] PHOSPHORUS LEVEL 2020-07-11 Mariajose Donato 10:12:00 [facility] ESTIMATED GFR 2020-07-11 Constantin Aquino 10:12:00 Hospital XR ABDOMEN 1 VW 2020-07-11 Dominique Nelson 00:50:58 [facility] COVID-19 QUALITATIVE RT-PCR 2020-07-10 Constantin Aquino thodist 19:54:00 Hospital XR CHEST 1 VW PORTABLE 2020-07-[address] 18:39:03 Hospital ECG ED PRELIMINARY INTERPRETATION 2020-07-10 Kieran Aquino 18:35:21 Hospital ECG 12-LEAD 2020-07-10 Constantin Aquino 18:12:03 Hospital HC COMPLETE BLD COUNT W/AUTO DIFF 2020-07-10 Kieran Aquino [facility] 18:10:00 Hospital PROTHROMBIN TIME WITH INR 2020-07-10 Constantin Aquino Meth odist 18:10:00 Hospital PARTIAL THROMBOPLASTIN TIME (PTT) 2020-07-10 Kieran Aquino [facility] 18:10:00 Hospital COMPREHENSIVE METABOLIC PANEL 2020-07-10 Aquino, Constantin Ortega 18:10:00 Hospital TROPONIN 2020-07-10 Modesto Aquinomeliza Ortega 18:10:00 Hospital B NATRIURETIC PEPTIDE 2020-07-10 Constantin Aquino Yrnis t 18:10:00 Hospital ESTIMATED GFR 2020-07-10 [place] Aquinomeliza Ortega 18:10:00 Hospital CREATINE KINASE, TOTAL (CPK) 2020-07-10 Constantin Aquino ethodist 18:10:[address] Abdomen/Pelvis w/wo contrast 2019-10-24 [facility] [id number] 00:00:00 CT Chest wo contrast [id number] 2019-10-24 [facility] 00:[facility]:00 Complex cystometrogram (ie, 2019-04-27 Jonathan rial [place] calibrated electronic equipment); 16:16:00 with voiding pressure studies (ie, bladder voiding pressure) and urethral pressure profile studies (ie, urethral closure pressure profile), any technique Electromyography studies (EMG) of 2019-04-27 [facility] or urethral sphincter, other 16:16:00 than needle, any technique Cystourethroscopy (separate 2019-04-27 Jonathan rial [place] procedure) 16:16:00 Injection procedure for 2019-04-27 [facility] cyst[facility] or voiding 16:16:00 urethrocystography Voiding pressure studies, 2019-04-27 [facility] intra-abdominal (ie, rectal, 16:16:00 gastric, intraperitoneal) (List separately in addition to code for primary procedure) Complex uroflowmetry (eg, 2019-04-27 [facility] [place] calibrated electronic equipment) 16:16:00 Measurement of post-voiding 2019-04-27 [facility] residual urine and/or bladder 16:15:00 capacity by ultrasound, non-imaging Aortic aneurysm repair 2015-06-01 [facility] 05:00:00 History of Abdominal aortic [facility] aneurysm repair Esophagogastroduodenoscopy [facility] [place] Colonoscopy [facility] AAA - Repair of abdominal aortic [facility] aneurysm using bifurcation graft Plan of Care Planned Activity Planned Date Details Comments Source Future Scheduled 2022-10-14 Screening for [facility] Test 10:47:54 malignant neoplasm of colon (procedure) [code = [id number]] Future Scheduled 2022-10-14 Screening for [facility] Test 10:47:54 malignant neoplasm of colon (procedure) [code = 416758938] Future Scheduled 2022-10-14 Screening for [facility] Test 10:47:54 malignant neoplasm of colon (procedure) [code = 146409939] Future Scheduled 2022-10-14 Hepatitis C screening [facility] Test 10:47:54 (procedure) [code = 714529831] Future Scheduled 2022-10-14 Screening for [facility] Test 10:47:54 malignant neoplasm of colon (procedure) [code = 214786951] Future Scheduled 2022-10-14 Screening for [facility] Test 10:47:54 malignant neoplasm of colon (procedure) [code = 918703962] Future Scheduled 2022-10-14 SHINGLES VACCINES (1 [facility] Test 10:47:54 of 2) [code = SHINGLES VACCINES (1 of 2)] Future Scheduled 2022-10-14 HEPATITIS B VACCINES [facility] Test 10:47:54 (1 of 3 - Risk 3-dose series) [code = HEPATITIS B VACCINES (1 of 3 - Risk 3-dose series)] Future Scheduled 2022-10-14 65+ [facility] 10:47:54 VACCINE (2 - PPSV23 if available, else PCV20) [code = 65+ PNEUMOCOCCAL VACCINE (2 - PPSV23 if available, else PCV20)] Future Scheduled 2022-10-14 COVID-19 VACCINE (4 - [facility] Test 10:47:54 Pfizer series) [code = COVID-19 VACCINE (4 - Pfizer series)] Future Scheduled 2022-10-14 INFLUENZA VACCINE Method [facility] Test 10:47:54 [code = INFLUENZA VACCINE] Future Scheduled 2022-10-03 Screening for [facility] Test 17:19:53 malignant neoplasm of colon (procedure) [code = [id number]] Future Scheduled 2022-10-03 Screening [facility] Test 17:19:53 malignant neoplasm of colon (procedure) [code = 074146448] Future Scheduled 2022-10-03 [facility] Test 17:19:53 malignant neoplasm of colon (procedure) [code = 031274203] Future Scheduled 2022-10-03 Hepatitis C screening [facility] Test 17:19:53 (procedure) [code = 494963850] Future Scheduled 2022-10-03 Scre[facility] Test 17:19:53 malignant neoplasm of colon (procedure) [code = 250130086] Future Scheduled 2022-10-03 [facility] Test 17:19:53 malignant neoplasm of colon (procedure) [code = 182290551] Future Scheduled 2022-10-03 SHINGLES VACCINES (1 [facility] Test 17:19:53 of 2) [code = SHINGLES VACCINES (1 of 2)] Future Scheduled 2022-10-03 HEPATITIS B VACCINES [facility] Test 17:19:53 (1 of 3 - Risk 3-dose series) [code = HEPATITIS B VACCINES (1 of 3 - Risk 3-dose series)] Future Scheduled 2022-10-03 65+ PNEUMOCOCCAL [facility] Test 17:19:53 VACCINE (2 - PPSV23 if available, else PCV20) [code = 65+ PNEUMOCOCCAL VACCINE (2 - PPSV23 if available, else PCV20)] Future Scheduled 2022-10-03 COVID-19 VACCINE (4 - [facility] Test 17:19:53 Pfizer series) [code = COVID-19 VACCINE (4 - Pfizer series)] Future Scheduled 2022-10-03 INFLUENZA VACCINE [facility] Test 17:19:53 [code = INFLUENZA VACCINE] Future Scheduled 2022-09-11 [facility] Test 14:14:39 malignant neoplasm of colon (procedure) [code = 616320762] Future Scheduled 2022-09-11 [facility] Test 14:14:39 malignant neoplasm of colon (procedure) [code = 891515424] Future Scheduled 2022-09-11 [facility] Test 14:14:39 malignant neoplasm of colon (procedure) [code = 496022412] Future Scheduled 2022-09-11 Hepatitis C screening [facility] Test 14:14:39 (procedure) [code = 309088273] Future Scheduled 2022-09-11 [facility] Test 14:14:39 malignant neoplasm of colon (procedure) [code = 986604751] Future Scheduled 2022-09-11 [facility] Test 14:14:39 malignant neoplasm of colon (procedure) [code = 646051421] Future Scheduled 2022-09-11 SHINGLES VACCINES (1 [facility] Test 14:14:39 of 2) [code = SHINGLES VACCINES (1 of 2)] Future Scheduled 2022-09-11 HEPATITIS B VACCINES [facility] Test 14:14:39 (1 of 3 - Risk 3-dose series) [code = HEPATITIS B VACCINES (1 of 3 - Risk 3-dose series)] Future Scheduled 2022-09-11 65+ PNEUMOCOCCAL [facility] Test 14:14:39 VACCINE (2 - PPSV23 if available, else PCV20) [code = 65+ PNEUMOCOCCAL VACCINE (2 - PPSV23 if available, else PCV20)] Future Scheduled 2022-09-11 COVID-19 VACCINE (4 - [facility] Test 14:14:39 Pfizer series) [code = COVID-19 VACCINE (4 - Pfizer series)] Future Scheduled 2022-09-11 INFLUENZA VACCINE [facility] Test 14:14:39 [code = INFLUENZA VACCINE] Future Scheduled 2022-09-10 [facility] Test 14:40:00 malignant neoplasm of colon (procedure) [code = 555271399] Future Scheduled 2022-09-10 [facility] Test 14:40:00 malignant neoplasm of colon (procedure) [code = 223246395] Future Scheduled 2022-09-10 [facility] Test 14:40:00 malignant neoplasm of colon (procedure) [code = 801154093] Future Scheduled 2022-09-10 Hepatitis C screening [facility] Test 14:40:00 (procedure) [code = 748582487] Future Scheduled 2022-09-10 [facility] Test 14:40:00 malignant neoplasm of colon (procedure) [code = 473848857] Future Scheduled 2022-09-10 [facility] Test 14:40:00 malignant neoplasm of colon (procedure) [code = 465399450] Future Scheduled 2022-09-10 SHINGLES VACCINES (1 [facility] Test 14:40:00 of 2) [code = SHINGLES VACCINES (1 of 2)] Future Scheduled 2022-09-10 HEPATITIS B VACCINES [facility] Test 14:40:00 (1 of 3 - Risk 3-dose series) [code = HEPATITIS B VACCINES (1 of 3 - Risk 3-dose series)] Future Scheduled 2022-09-10 65+ PNEUMOCOCCAL [facility] Test 14:40:00 VACCINE (2 - PPSV23 if available, else PCV20) [code = 65+ PNEUMOCOCCAL VACCINE (2 - PPSV23 if available, else PCV20)] Future Scheduled 2022-09-10 COVID-19 VACCINE (4 - [facility] Test 14:40:00 Pfizer series) [code = COVID-19 VACCINE (4 - Pfizer series)] Future Scheduled 2022-09-10 INFLUENZA VACCINE Method [facility] Test 14:40:00 [code = INFLUENZA VACCINE] Future Scheduled 2022-09-10 Screening for [facility] Test 14:40:00 malignant neoplasm of colon (procedure) [code = 970872786] Future Scheduled 2022-09-10 Screening for [facility] Test 14:40:00 malignant neoplasm of colon (procedure) [code = 611488720] Future Scheduled 2022-09-10 Screening for [facility] Test 14:40:00 malignant neoplasm of colon (procedure) [code = 735063274] Future Scheduled 2022-09-10 Hepatitis C screening [facility] Test 14:40:00 (procedure) [code = 400081870] Future Scheduled 2022-09-10 Screening for [facility] Test 14:40:00 malignant neoplasm of colon (procedure) [code = 226167722] Future Scheduled 2022-09-10 Screening for [facility] Test 14:40:00 malignant neoplasm of colon (procedure) [code = 500637718] Future Scheduled 2022-09-10 SHINGLES VACCINES (1 [facility] Test 14:40:00 of 2) [code = SHINGLES VACCINES (1 of 2)] Future Scheduled 2022-09-10 HEPATITIS B VACCINES [facility] Test 14:40:00 (1 of 3 - Risk 3-dose series) [code = HEPATITIS B VACCINES (1 of 3 - Risk 3-dose series)] Future Scheduled 2022-09-10 65+ PNEUMOCOCCAL [facility] Test 14:40:00 VACCINE (2 - PPSV23 if available, else PCV20) [code = 65+ PNEUMOCOCCAL VACCINE (2 - PPSV23 if available, else PCV20)] Future Scheduled 2022-09-10 COVID-19 VACCINE (4 - [facility] Test 14:40:00 Pfizer series) [code = COVID-19 VACCINE (4 - Pfizer series)] Future Scheduled 2022-09-10 INFLUENZA VACCINE Method [facility] Test 14:40:00 [code = INFLUENZA VACCINE] Future Scheduled 2022-08-15 [facility] Test 19:38:42 malignant neoplasm of colon (procedure) [code = 752769916] Future Scheduled 2022-08-15 [facility] Test 19:38:42 malignant neoplasm of colon (procedure) [code = 253982060] Future Scheduled 2022-08-15 [facility] Test 19:38:42 malignant neoplasm of colon (procedure) [code = 868998248] Future Scheduled 2022-08-15 Hepatitis C screening [facility] Test 19:38:42 (procedure) [code = 112614557] Future Scheduled 2022-08-15 [facility] Test 19:38:42 malignant neoplasm of colon (procedure) [code = 992290329] Future Scheduled 2022-08-15 Screening for [facility] Test 19:38:42 malignant neoplasm of colon (procedure) [code = 084602947] Future Scheduled 2022-08-15 SHINGLES VACCINES (1 [facility] Test 19:38:42 of 2) [code = SHINGLES VACCINES (1 of 2)] Future Scheduled 2022-08-15 HEPATITIS B VACCINES [facility] Test 19:38:42 (1 of 3 - Risk 3-dose series) [code = HEPATITIS B VACCINES (1 of 3 - Risk 3-dose series)] Future Scheduled 2022-08-15 65+ PNEUMOCOCCAL [facility] Test 19:38:42 VACCINE (2 - PPSV23 if available, else PCV20) [code = 65+ PNEUMOCOCCAL VACCINE (2 - PPSV23 if available, else PCV20)] Future Scheduled 2022-08-15 COVID-19 VACCINE (4 - [facility] Test 19:38:42 Pfizer series) [code = COVID-19 VACCINE (4 - Pfizer series)] Future Scheduled 2022-08-15 INFLUENZA VACCINE [facility] Test 19:38:42 [code = INFLUENZA VACCINE] Future Scheduled 2022-08-08 [facility] Test 01:18:30 malignant neoplasm of colon (procedure) [code = 252009697] Future Scheduled 2022-08-08 [facility] Test 01:18:30 malignant neoplasm of colon (procedure) [code = 381768714] Future Scheduled 2022-08-08 [facility] Test 01:18:30 malignant neoplasm of colon (procedure) [code = 652019316] Future Scheduled 2022-08-08 Hepatitis C screening [facility] Test 01:18:30 (procedure) [code = 530384609] Future Scheduled 2022-08-08 Screening for [facility] Test 01:18:30 malignant neoplasm of colon (procedure) [code = 547860950] Future Scheduled 2022-08-08 Screening for [facility] Test 01:18:30 malignant neoplasm of colon (procedure) [code = 720188876] Future Scheduled 2022-08-08 SHINGLES VACCINES (1 [facility] Test 01:18:30 of 2) [code = SHINGLES VACCINES (1 of 2)] Future Scheduled 2022-08-08 HEPATITIS B VACCINES [facility] Test 01:18:30 (1 of 3 - Risk 3-dose series) [code = HEPATITIS B VACCINES (1 of 3 - Risk 3-dose series)] Future Scheduled 2022-08-08 65+ [facility] 01:18:30 VACCINE (2 - PPSV23 if available, else PCV20) [code = 65+ PNEUMOCOCCAL VACCINE (2 - PPSV23 if available, else PCV20)] Future Scheduled 2022-08-08 COVID-19 VACCINE (4 - [facility] Test 01:18:30 Pfizer series) [code = COVID-19 VACCINE (4 - Pfizer series)] Future Scheduled 2022-08-08 INFLUENZA VACCINE Method [facility] Test 01:18:30 [code = INFLUENZA VACCINE] Future Scheduled 2022-08-01 Hepatitis C screening [facility] Test 12:51:59 (procedure) [code = 547190762] Future Scheduled 2022-08-01 COLONOSCOPY SCREENING [facility] Test 12:51:59 [code = COLONOSCOPY SCREENING] Future Scheduled 2022-08-01 SHINGLES VACCINES (1 [facility] Test 12:51:59 of 2) [code = SHINGLES VACCINES (1 of 2)] Future Scheduled 2022-08-01 HEPATITIS B VACCINES [facility] Test 12:51:59 (1 of 3 - Risk 3-dose series) [code = HEPATITIS B VACCINES (1 of 3 - Risk 3-dose series)] Future Scheduled 2022-08-01 65+ [facility] Test 12:51:59 VACCINE (2 - PPSV23 if available, else PCV20) [code = 65+ PNEUMOCOCCAL VACCINE (2 - PPSV23 if available, else PCV20)] Future Scheduled 2022-08-01 COVID-19 VACCINE (4 - [facility] Test 12:51:59 Booster for Pfizer series) [code = COVID-19 VACCINE (4 - Booster for Pfizer series)] Future Scheduled 2022-08-01 INFLUENZA VACCINE Method [facility] Test 12:51:59 [code = INFLUENZA VACCINE] Future Scheduled 2022-08-01 Hepatitis C screening [facility] Test 12:51:59 (procedure) [code = 312557301] Future Scheduled 2022-08-01 COLONOSCOPY SCREENING [facility] Test 12:51:59 [code = COLONOSCOPY SCREENING] Future Scheduled 2022-08-01 SHINGLES VACCINES (1 [facility] Test 12:51:59 of 2) [code = SHINGLES VACCINES (1 of 2)] Future Scheduled 2022-08-01 HEPATITIS B VACCINES [facility] Test 12:51:59 (1 of 3 - Risk 3-dose series) [code = HEPATITIS B VACCINES (1 of 3 - Risk 3-dose series)] Future Scheduled 2022-08-01 65+ [facility] 12:51:59 VACCINE (2 - PPSV23 if available, else PCV20) [code = 65+ PNEUMOCOCCAL VACCINE (2 - PPSV23 if available, else PCV20)] Future Scheduled 2022-08-01 COVID-19 VACCINE (4 - [facility] Test 12:51:59 Booster for Pfizer series) [code = COVID-19 VACCINE (4 - Booster for Pfizer series)] Future Scheduled 2022-08-01 INFLUENZA VACCINE [facility] Test 12:51:59 [code = INFLUENZA VACCINE] Future Scheduled 2022-06-27 Hepatitis C screening [facility] Test 04:13:42 (procedure) [code = 893276866] Future Scheduled 2022-06-27 COLONOSCOPY SCREENING [facility] Test 04:13:42 [code = COLONOSCOPY SCREENING] Future Scheduled 2022-06-27 SHINGLES VACCINES (1 [facility] Test 04:13:42 of 2) [code = SHINGLES VACCINES (1 of 2)] Future Scheduled 2022-06-27 HEPATITIS B VACCINES [facility] Test 04:13:42 (1 of 3 - Risk 3-dose series) [code = HEPATITIS B VACCINES (1 of 3 - Risk 3-dose series)] Future Scheduled 2022-06-27 65+ [facility]AL [facility] Test 04:13:42 VACCINE (2 - PPSV23 if available, else PCV20) [code = 65+ PNEUMOCOCCAL VACCINE (2 - PPSV23 if available, else PCV20)] Future Scheduled 2022-06-27 COVID-19 VACCINE (4 - [facility] Test 04:13:42 Booster for Pfizer series) [code = COVID-19 VACCINE (4 - Booster for Pfizer series)] Future Scheduled 2022-06-27 INFLUENZA VACCINE [facility] Test 04:13:42 [code = INFLUENZA VACCINE] Future Scheduled 2022-06-16 Hepatitis C screening [facility] Test 09:06:34 (procedure) [code = 283674168] Future Scheduled 2022-06-16 COLONOSCOPY SCREENING [facility] Test 09:06:34 [code = COLONOSCOPY SCREENING] Future Scheduled 2022-06-16 SHINGLES VACCINES (1 [facility] Test 09:06:34 of 2) [code = SHINGLES VACCINES (1 of 2)] Future Scheduled 2022-06-16 HEPATITIS B VACCINES [facility] Test 09:06:34 (1 of 3 - Risk 3-dose series) [code = HEPATITIS B VACCINES (1 of 3 - Risk 3-dose series)] Future Scheduled 2022-06-16 COVID-19 VACCINE (4 - [facility] Test 09:06:34 Booster for Pfizer series) [code = COVID-19 VACCINE (4 - Booster for Pfizer series)] Future Scheduled 2022-06-16 65+ [facility] 09:06:34 VACCINE (2 - PPSV23 if available, else PCV20) [code = 65+ PNEUMOCOCCAL VACCINE (2 - PPSV23 if available, else PCV20)] Future Scheduled 2022-06-16 INFLUENZA VACCINE [facility] Test 09:06:34 [code = INFLUENZA VACCINE] Future Scheduled 2022-06-16 Hepatitis C screening [facility] Test 09:06:34 (procedure) [code = 785540369] Future Scheduled 2022-06-16 COLONOSCOPY SCREENING [facility] Test 09:06:34 [code = COLONOSCOPY SCREENING] Future Scheduled 2022-06-16 SHINGLES VACCINES (1 [facility] Test 09:06:34 of 2) [code = SHINGLES VACCINES (1 of 2)] Future Scheduled 2022-06-16 HEPATITIS B VACCINES [facility] Test 09:06:34 (1 of 3 - Risk 3-dose series) [code = HEPATITIS B VACCINES (1 of 3 - Risk 3-dose series)] Future Scheduled 2022-06-16 COVID-19 VACCINE (4 - [facility] Test 09:06:34 Booster for Pfizer series) [code = COVID-19 VACCINE (4 - Booster for Pfizer series)] Future Scheduled 2022-06-16 65+ [facility]AL [facility] Test 09:06:34 VACCINE (2 - PPSV23 if available, else PCV20) [code = 65+ PNEUMOCOCCAL VACCINE (2 - PPSV23 if available, else PCV20)] Future Scheduled 2022-06-16 INFLUENZA VACCINE [facility] Test 09:06:34 [code = INFLUENZA VACCINE] Future Scheduled 2022-06-16 Hepatitis C screening [facility] Test 09:06:34 (procedure) [code = 226822157] Future Scheduled 2022-06-16 COLONOSCOPY SCREENING [facility] Test 09:06:34 [code = COLONOSCOPY SCREENING] Future Scheduled 2022-06-16 SHINGLES VACCINES (1 [facility] Test 09:06:34 of 2) [code = SHINGLES VACCINES (1 of 2)] Future Scheduled 2022-06-16 HEPATITIS B VACCINES [facility] Test 09:06:34 (1 of 3 - Risk 3-dose series) [code = HEPATITIS B VACCINES (1 of 3 - Risk 3-dose series)] Future Scheduled 2022-06-16 COVID-19 VACCINE (4 - [facility] Test 09:06:34 Booster for Pfizer series) [code = COVID-19 VACCINE (4 - Booster for Pfizer series)] Future Scheduled 2022-06-16 65+ [facility]AL [facility] 09:06:34 VACCINE (2 - PPSV23 if available, else PCV20) [code = 65+ PNEUMOCOCCAL VACCINE (2 - PPSV23 if available, else PCV20)] Future Scheduled 2022-06-16 INFLUENZA VACCINE [facility] 09:06:34 [code = INFLUENZA VACCINE] Future Scheduled 2022-06-06 Hepatitis C screening [facility] Test 01:51:15 (procedure) [code = 888249273] Future Scheduled 2022-06-06 COLONOSCOPY SCREENING [facility] Test 01:51:15 [code = COLONOSCOPY SCREENING] Future Scheduled 2022-06-06 SHINGLES VACCINES (1 [facility] Test 01:51:15 of 2) [code = SHINGLES VACCINES (1 of 2)] Future Scheduled 2022-06-06 HEPATITIS B VACCINES [facility] Test 01:51:15 (1 of 3 - Risk 3-dose series) [code = HEPATITIS B VACCINES (1 of 3 - Risk 3-dose series)] Future Scheduled 2022-06-06 COVID-19 VACCINE (4 - [facility] Test 01:51:15 Booster for Pfizer series) [code = COVID-19 VACCINE (4 - Booster for Pfizer series)] Future Scheduled 2022-06-06 65+ [facility]OCCAL [facility] 01:51:15 VACCINE (2 - PPSV23 if available, else PCV20) [code = 65+ PNEUMOCOCCAL VACCINE (2 - PPSV23 if available, else PCV20)] Future Scheduled 2022-06-06 INFLUENZA VACCINE [facility] Test 01:51:15 [code = INFLUENZA VACCINE] Future Scheduled 2022-03-07 Hepatitis C screening [facility] Test 15:16:29 (procedure) [code = 953466718] Future Scheduled 2022-03-07 COLONOSCOPY SCREENING [facility] Test 15:16:29 [code = COLONOSCOPY SCREENING] Future Scheduled 2022-03-07 SHINGLES VACCINES (1 [facility] Test 15:16:29 of 2) [code = SHINGLES VACCINES (1 of 2)] Future Scheduled 2022-03-07 HEPATITIS B VACCINES [facility] Test 15:16:29 (1 of 3 - Risk 3-dose series) [code = HEPATITIS B VACCINES (1 of 3 - Risk 3-dose series)] Future Scheduled 2022-03-07 COVID-19 VACCINE (4 - [facility] Test 15:16:29 Booster for Pfizer series) [code = COVID-19 VACCINE (4 - Booster for Pfizer series)] Future Scheduled 2022-03-07 65+ [facility]AL [facility] 15:16:29 VACCINE (2 - PPSV23 if available, else PCV20) [code = 65+ PNEUMOCOCCAL VACCINE (2 - PPSV23 if available, else PCV20)] Future Scheduled 2022-03-07 INFLUENZA VACCINE Method [facility] Test 15:16:29 [code = INFLUENZA VACCINE] Future Scheduled 2022-03-07 Hepatitis C screening [facility] Test 15:16:29 (procedure) [code = 482577070] Future Scheduled 2022-03-07 COLONOSCOPY SCREENING [facility] Test 15:16:29 [code = COLONOSCOPY SCREENING] Future Scheduled 2022-03-07 SHINGLES VACCINES (1 [facility] Test 15:16:29 of 2) [code = SHINGLES VACCINES (1 of 2)] Future Scheduled 2022-03-07 HEPATITIS B VACCINES [facility] Test 15:16:29 (1 of 3 - Risk 3-dose series) [code = HEPATITIS B VACCINES (1 of 3 - Risk 3-dose series)] Future Scheduled 2022-03-07 COVID-19 VACCINE (4 - [facility] Test 15:16:29 Booster for Pfizer series) [code = COVID-19 VACCINE (4 - Booster for Pfizer series)] Future Scheduled 2022-03-07 65+ [facility]AL [facility] 15:16:29 VACCINE (2 - PPSV23 if available, else PCV20) [code = 65+ PNEUMOCOCCAL VACCINE (2 - PPSV23 if available, else PCV20)] Future Scheduled 2022-03-07 INFLUENZA VACCINE [facility] Test 15:16:29 [code = INFLUENZA VACCINE] Future Scheduled 2022-03-07 Hepatitis C screening [facility] Test 15:16:29 (procedure) [code = 405001364] Future Scheduled 2022-03-07 COLONOSCOPY SCREENING [facility] Test 15:16:29 [code = COLONOSCOPY SCREENING] Future Scheduled 2022-03-07 SHINGLES VACCINES (1 [facility] Test 15:16:29 of 2) [code = SHINGLES VACCINES (1 of 2)] Future Scheduled 2022-03-07 HEPATITIS B VACCINES [facility] Test 15:16:29 (1 of 3 - Risk 3-dose series) [code = HEPATITIS B VACCINES (1 of 3 - Risk 3-dose series)] Future Scheduled 2022-03-07 COVID-19 VACCINE (4 - [facility] Test 15:16:29 Booster for Pfizer series) [code = COVID-19 VACCINE (4 - Booster for Pfizer series)] Future Scheduled 2022-03-07 65+ P[facility]UMOCOCCAL [facility] Test 15:16:29 VACCINE (2 - PPSV23 if available, else PCV20) [code = 65+ PNEUMOCOCCAL VACCINE (2 - PPSV23 if available, else PCV20)] Future Scheduled 2022-03-07 INFLUENZA VACCINE Method [facility] Test 15:16:29 [code = INFLUENZA VACCINE] Future Scheduled 2022-03-07 Hepatitis C screening [facility] Test 15:16:29 (procedure) [code = [id number]] Future Scheduled 2022-03-07 COLONOSCOPY SCREENING [facility] Test 15:16:29 [code = COLONOSCOPY SCREENING] Future Scheduled 2022-03-07 SHINGLES VACCINES (1 Met [facility] Test 15:16:29 of 2) [code = SHINGLES VACCINES (1 of 2)] Future Scheduled 2022-03-07 HEPATITIS B VACCINES [facility] Test 15:16:29 (1 of 3 - Risk 3-dose series) [code = HEPATITIS B VACCINES (1 of 3 - Risk 3-dose series)] Future Scheduled 2022-03-07 COVID-19 VACCINE (4 - Me [facility] Test 15:16:29 Booster for Pfizer series) [code = COVID-19 VACCINE (4 - Booster for Pfizer series)] Future Scheduled 2022-03-07 65+ [facility]AL [facility] Test 15:16:29 VACCINE (2 - PPSV23 if available, else PCV20) [code = 65+ PNEUMOCOCCAL VACCINE (2 - PPSV23 if available, else PCV20)] Future Scheduled 2022-03-07 INFLUENZA VACCINE Method [facility] Test 15:16:29 [code = INFLUENZA VACCINE] Future Scheduled 2022-03-07 Hepatitis C screening [facility] Test 15:16:29 (procedure) [code = [id number]] Future Scheduled 2022-03-07 COLONOSCOPY SCREENING [facility] Test 15:16:29 [code = COLONOSCOPY SCREENING] Future Scheduled 2022-03-07 SHINGLES VACCINES (1 [facility] Test 15:16:29 of 2) [code = SHINGLES VACCINES (1 of 2)] Future Scheduled 2022-03-07 HEPATITIS B VACCINES [facility] Test 15:16:29 (1 of 3 - Risk 3-dose series) [code = HEPATITIS B VACCINES (1 of 3 - Risk 3-dose series)] Future Scheduled 2022-03-07 COVID-19 VACCINE (4 - Me [facility] Test 15:16:29 Booster for Pfizer series) [code = COVID-19 VACCINE (4 - Booster for Pfizer series)] Future Scheduled 2022-03-07 65+ [facility]CCAL [facility] Test 15:16:29 VACCINE (2 - PPSV23 if available, else PCV20) [code = 65+ PNEUMOCOCCAL VACCINE (2 - PPSV23 if available, else PCV20)] Future Scheduled 2022-03-07 INFLUENZA VACCINE Method [facility] Test 15:16:29 [code = INFLUENZA VACCINE] Future Scheduled 2022-03-07 Hepatitis C screening [facility] Test 15:16:29 (procedure) [code = [id number]] Future Scheduled 2022-03-07 COLONOSCOPY SCREENING [facility] Test 15:16:29 [code = COLONOSCOPY SCREENING] Future Scheduled 2022-03-07 SHINGLES VACCINES (1 [facility] Test 15:16:29 of 2) [code = SHINGLES VACCINES (1 of 2)] Future Scheduled 2022-03-07 HEPATITIS B VACCINES [facility] Test 15:16:29 (1 of 3 - Risk 3-dose series) [code = HEPATITIS B VACCINES (1 of 3 - Risk 3-dose series)] Future Scheduled 2022-03-07 COVID-19 VACCINE (4 - Me [facility] Test 15:16:29 Booster for Pfizer series) [code = COVID-19 VACCINE (4 - Booster for Pfizer series)] Future Scheduled 2022-03-07 65+ P[facility]OCOCCAL [facility] Test 15:16:29 VACCINE (2 - PPSV23 if available, else PCV20) [code = 65+ PNEUMOCOCCAL VACCINE (2 - PPSV23 if available, else PCV20)] Future Scheduled 2022-03-07 INFLUENZA VACCINE Method [facility] Test 15:16:29 [code = INFLUENZA VACCINE] Future Scheduled 2022-03-07 Hepatitis C screening [facility] Test 15:16:29 (procedure) [code = [id number]] Future Scheduled 2022-03-07 COLONOSCOPY SCREENING [facility] Test 15:16:29 [code = COLONOSCOPY SCREENING] Future Scheduled 2022-03-07 SHINGLES VACCINES (1 [facility] Test 15:16:29 of 2) [code = SHINGLES VACCINES (1 of 2)] Future Scheduled 2022-03-07 HEPATITIS B VACCINES [facility] Test 15:16:29 (1 of 3 - Risk 3-dose series) [code = HEPATITIS B VACCINES (1 of 3 - Risk 3-dose series)] Future Scheduled 2022-03-07 COVID-19 VACCINE (4 - [facility] Test 15:16:29 Booster for Pfizer series) [code = COVID-19 VACCINE (4 - Booster for Pfizer series)] Future Scheduled 2022-03-07 65+ [facility]OC[facility]CCAL [facility] Test 15:16:29 VACCINE (2 - PPSV23 if available, else PCV20) [code = 65+ PNEUMOCOCCAL VACCINE (2 - PPSV23 if available, else PCV20)] Future Scheduled 2022-03-07 INFLUENZA VACCINE Method [facility] Test 15:16:29 [code = INFLUENZA VACCINE] Future Scheduled 2022-03-07 Hepatitis C screening [facility] Test 15:16:29 (procedure) [code = [id number]] Future Scheduled 2022-03-07 COLONOSCOPY SCREENING [facility] Test 15:16:29 [code = COLONOSCOPY SCREENING] Future Scheduled 2022-03-07 SHINGLES VACCINES (1 [facility] Test 15:16:29 of 2) [code = SHINGLES VACCINES (1 of 2)] Future Scheduled 2022-03-07 HEPATITIS B VACCINES [facility] Test 15:16:29 (1 of 3 - Risk 3-dose series) [code = HEPATITIS B VACCINES (1 of 3 - Risk 3-dose series)] Future Scheduled 2022-03-07 COVID-19 VACCINE (4 - Me [facility] Test 15:16:29 Booster for Pfizer series) [code = COVID-19 VACCINE (4 - Booster for Pfizer series)] Future Scheduled 2022-03-07 65+ PNEUMOCOCCAL Methodi [facility] Test 15:16:29 VACCINE (2 - PPSV23 if available, else PCV20) [code = 65+ PNEUMOCOCCAL VACCINE (2 - PPSV23 if available, else PCV20)] Future Scheduled 2022-03-07 INFLUENZA VACCINE Method [facility] Test 15:16:29 [code = INFLUENZA VACCINE] Future Scheduled 2022-01-04 Hepatitis C screening [facility] Test 08:50:17 (procedure) [code = 356645375] Future Scheduled 2022-01-04 COLONOSCOPY SCREENING [facility] Test 08:50:17 [code = COLONOSCOPY SCREENING] Future Scheduled 2022-01-04 SHINGLES VACCINES (1 [facility] Test 08:50:17 of 2) [code = SHINGLES VACCINES (1 of 2)] Future Scheduled 2022-01-04 HEPATITIS B VACCINES [facility] Test 08:50:17 (1 of 3 - Risk 3-dose series) [code = HEPATITIS B VACCINES (1 of 3 - Risk 3-dose series)] Future Scheduled 2022-01-04 COVID-19 VACCINE (4 - Me [facility] Test 08:50:17 Booster for Pfizer series) [code = COVID-19 VACCINE (4 - Booster for Pfizer series)] Future Scheduled 2022-01-04 65+ PNEUMOCOCCAL Methodi [facility] Test 08:50:17 VACCINE (2 - PPSV23 if available, else PCV20) [code = 65+ PNEUMOCOCCAL VACCINE (2 - PPSV23 if available, else PCV20)] Future Scheduled 2022-01-04 INFLUENZA VACCINE Method [facility] Test 08:50:17 [code = INFLUENZA VACCINE] Future Scheduled 2021-12-14 Hepatitis C screening [facility] Test 06:18:15 (procedure) [code = 175641536] Future Scheduled 2021-12-14 COLONOSCOPY SCREENING Me [facility] Test 06:18:15 [code = COLONOSCOPY SCREENING] Future Scheduled 2021-12-14 SHINGLES VACCINES (1 Met [facility] Test 06:18:15 of 2) [code = SHINGLES VACCINES (1 of 2)] Future Scheduled 2021-12-14 HEPATITIS B VACCINES Met [facility] Test 06:18:15 (1 of 3 - Risk 3-dose series) [code = HEPATITIS B VACCINES (1 of 3 - Risk 3-dose series)] Future Scheduled 2021-12-14 COVID-19 VACCINE (4 - Me [facility] Test 06:18:15 Booster for Pfizer series) [code = COVID-19 VACCINE (4 - Booster for Pfizer series)] Future Scheduled 2021-12-14 65+ PNEUMOCOCCAL Method[facility] Hospital Test 06:18:15 VACCINE (2 - PPSV23 if available, else PCV20) [code = 65+ PNEUMOCOCCAL VACCINE (2 - PPSV23 if available, else PCV20)] Future Scheduled 2021-12-14 INFLUENZA VACCINE Method [facility] Hospital Test 06:18:15 [code = INFLUENZA VACCINE] Future Scheduled DIABETES: RETINAL EYE [facility] Test EXAM [code = DIABETES: RETINAL EYE EXAM] Future Scheduled DIABETIC FOOT EXAM [facility] Test [code = DIABETIC FOOT EXAM] Future Scheduled Hepatitis C screening [facility] Test (procedure) [code = 047801393] Future Scheduled COLONOSCOPY SCREENING [facility] Test [code = COLONOSCOPY SCREENING] Future Scheduled [facility]LES [facility]IN[facility] (#[facility] [code = SHINGLES VACCINES (#1)] Future Scheduled [facility] Test malignant neoplasm of lung (procedure) [code = 607649968] Future Scheduled 65+ [facility]OCOCC[facility] Test VACCINE (2 of 4 - PPSV23) [code = 65+ PNEUMOCOCCAL VACCINE (2 of 4 - PPSV23)] Future Scheduled INFLUENZA VACCINE Method [facility] Test [code = INFLUENZA VACCINE] Encounters Start End Encounter Admission Attending Care Care Encounter Source Date/Time Date/Time Type Type Clinicians Facility Department ID 2022-10-10 Inpatient DAYANA ALFREDO [facility] DOMINIQUE [id number] [facility] 12:35:52 94 2022-05-05 Outpatient [facility] [id number] [place] 07:32:28 [id number] Health 2022-05-02 Outpatient [facility] [id number] [place] 14:36:16 [id number] [facility] 2022-05-01 Outpatient [facility] [id number] [place] 12:45:33 [id number] [facility] 2022-04-24 Outpatient [facility] [id number] [place] 13:11:11 [id number] [facility] 2021-07-12 Outpatient DAYANA ALFREDO [facility] [id number] [facility] 13:01:44 2021 Outpatient AYDEN [facility] [id number] [place] 01:03:11 [facility] 2018-06-23 Inpatient DAYANA ALFREDO [facility] [id number] [facility] 10:22:21 2022-12-08 2022-12-08 Outpatient SILVINO COSME [facility] [place] [id number] [place] 08:45:00 08:45:00 [facility] 2022-09-09 2022-10-09 OP [facility] Transplant [id number] Memoria 05:00:00 04:59:00 Transplant Center 37 l [facility] Pre 2022-09-09 2022-10-08 Outpatient CONI [facility] [id number] [facility] 00:00:00 23:59:00 BRITTNI 37 2022-09-09 2022-10-08 Outpatient Coni [facility] [id number] 00:00:00 23:59:00 Brittni 37 [facility] 2022-09-09 2022-09-09 Outpatient CONI [facility] [id number] [facility] 00:00:00 00:00:00 ROCHA 2022-07-31 2022-08-30 OP [facility] Transplant [id number] Memoria 16:00:00 04:59:00 Transplant Center 36 l Clinic [place] Pre 2022-07-31 2022-08-30 OP [facility] Transplant [id number] Memoria 16:00:00 04:59:00 Transplant Center 36 l [facility] [place] Pre 2022-07-31 2022-08-29 Outpatient DAYANA ALFREDO [facility] DOMINIQUE [id number] [facility] 11:00:00 23:59:00 2022-07-31 2022-08-29 Outpatient Dayana Alfredo [facility] [id number] 11:00:00 23:59:00 Antoine 36 2022-07-02 2022-08-01 OP [facility] Transplant [id number] Memoria 16:00:00 04:59:00 Transplant Center 35 l [facility] Pre 2022-07-02 2022-08-01 OP [facility] Transplant [id number] Memoria 16:00:00 04:59:00 Transplant Center 35 l [facility] Pre 2022-07-02 2022-07-31 Outpatient DAYANA ALFREDO [facility] [id number] MH 11:00:00 23:59:00 2022-07-02 2022-07-31 Outpatient Dayana Alfredo [facility] [id number] 11:00:00 23:59:00 Antoine 35 2022-06-11 2022-07-11 OP [facility] Transplant [id number] Memoria 16:00:00 04:59:00 Transplant Center 34 l [facility] Pre 2022-06-11 2022-07-11 OP [facility] Transplant [id number] Memoria 16:00:00 04:59:00 Transplant Center 34 l [facility] Pre 2022-06-11 2022-07-10 Outpatient [place], [facility] [id number] [facility] 11:00:00 23:59:00 BRITTNI 2022-06-11 2022-07-10 Outpatient [place], [facility] [id number] 11:00:00 23:59:00 Brittni 34 Geno 2022-07-09 2022-07-09 Outpatient R UNKNOWN, [facility] [id number] Univers 08:04:37 23:59:00 ATTENDING [facility] 2022-07-09 2022-07-09 Hospital Unknown, [facility] [id number] Univers 08:04:37 23:59:00 Encounter Attending JOSE [facility].1.13.10 [facility] 4.2.7.2.686 [facility] [id number] [facility] 804 [place] 2022-05-07 2022-06-06 OP [facility] Transplant [id number] Memoria 17:00:00 04:59:00 Transplant Center 33 l [facility] Pre 2022-05-07 2022-06-06 OP [facility] Transplant [id number] Memoria 17:00:00 04:59:00 Transplant Center 33 l [facility] Pre 2022-05-07 2022-06-05 Outpatient DAYANA ALFREDO [facility] DOMINIQUE [id number] [facility] 11:00:00 23:59:00 2022-05-07 2022-06-05 Outpatient Dayana Alfredo [facility] [id number] 11:00:00 23:59:00 [place] 33 2022-04-09 2022-05-09 OP [facility] Transplant [id number] Memoria 17:00:00 05:59:00 Transplant Center 32 l [facility] Pre 2022-04-09 2022-05-09 OP [facility] Transplant [id number] Memoria 17:00:00 05:59:00 Transplant Center 32 l [facility] Pre 2022-04-09 2022 Outpatient DAYANA ALFREDO [facility] DOMIN[facility]QUE [id number] [facility] 11:00:00 23:59:00 2022-04-09 2022 Outpatient Dayana Alfredo [facility] [id number] 11:00:00 23:59:00 [place] 32 2022-05-05 2022-05-05 Office Silvino Cosme 6400 [id number] [id number] [place] 08:45:00 09:15:00 Visit JAXON HAMMOND 350.1.13.58 [facility] 9.2.7.2.686 [id number] 2 2022-04-29 2022-04-29 DIZZINESS 1 MASON ELLIOTT [facility] [id number] 19:50:00 23:00:00 [facility] [place] JOAQUIN LAM N, Yonatan Simmons [address] BY[address], [place]LUF/[place] [address] 2022-04-29 2022-04-29 Inpatient [facility] [id number] [facility] 00:00[facility] 00:00:[address] [facility] NUÑEZ [id number] Yonatan Rebolledo [id number] [address] ac60fe [address] BYPASS, (LUF/[place] [address] 2022-04-29 2022-04-29 Inpatient [facility] [id number] [facility]d [facility] 00:00:00 [facility] [id number] [facility], [id number] [address] c72acf l BYPASS, (LUF/[place] [address] 2022-04-26 2022-04-27 CYSTITIS 1 FRANKY, [facility] MMC [id number] 19:27:00 22:10:00 UNS ALBINA [facility] L ukes WITHOUT N, [address] BYPASS, (LUF/[place] [address] 2022-04-26 2022-04-26 Inpatient [facility] [id number] -c [facility] 00[facility]:00 [facility] [id number]- a [facility], [address] [id number] [address] a78ab6 l BYPASS, (LUF/[place] [address] 2022-04-26 2022-04-26 Inpatient MMC MMC [id number] -[address] [facility] 00:00:00 00:00:00 [facility] [id number]- b [facility], [address] [id number] [address] c94fc6 l BYPASS, (LUF/[place] [address] 2022-01-07 2022-02-06 OP [facility] Transplant [id number] Memoria 17:00:00 05:59:00 Transplant Center [address] [place] [address] Pre 2022-01-07 2022-02-06 OP [facility] Transplant [id number] Memoria 17:00:00 05:59:00 Transplant Center [address] [place] [address] Pre 2022-01-07 2022-02-05 Outpatient DAYANA ALFREDO [facility] DOMINIQUE [id number] [facility] 11:00:00 23:59:00 2022-01-07 2022-02-05 Outpatient Dyaana Alfredo [facility] [id number] 11:00:00 23:59:00 Antoine 31 2021-12-24 2021-12-24 Outpatient nullFlavo [facility] [id number] Memoria 05:40:58 08:45:00 r l [place] 2021-12-24 2021-12-24 Outpatient nullFlavo [facility] [id number] Memoria 05:40:58 08:45:00 r l [place] 2021-11-08 2021-12-08 OP nullFlavo Transplant [id number] Memoria 16:00:00 04:59:00 Transplant r Center 30 l [facility] 2021-11-08 2021-12-08 OP nullFlavo Transplant [id number] Memoria 16:00:00 04:59:00 Transplant r Center 30 l [facility] 2021-11-08 2021-12-07 Outpatient DAYANA ALFREDO [facility] [id number] [facility] 11:00:00 23:59:00 2021-11-08 2021-12-07 Outpatient Dayana Alfredo [facility] [id number] 11:00:00 23:59:00 Antoine 30 2021-11-11 2021-11-12 Outpt Diag nullFlavo [facility] [id number] Memoria 13:35:00 04:59:00 Services r Outpatient 08 l [facility] 2021-11-11 2021-11-12 Outpt Diag nullFlavo [facility] [id number] Memoria 13:35:00 04:59:00 Services r Outpatient 08 l [facility] 2021-11-11 2021-11-11 Outpatient Silvino Cosme OIP OIP [id number] 08:35:00 23:59:00 08 2021-10-28 2021-10-28 Office SILVINO COSME [facility] 6400 1.2.840.114 [id number] [place] 08:45:00 08:45:00 Visit JAXON 350.1.13.58 [facility] 9.2.7.2.686 [id number] 2 2021-09-06 2021-10-06 OP nullFlavo Transplant [id number] Memoria 16:00:00 04:59:00 Transplant r Center 29 l [facility] [place] Pre 2021-09-06 2021-10-06 OP nullFlavo Transplant [id number] Memoria 16:00:00 04:59:00 Transplant r Center 29 l Clinic - [place] Pre 2021-09-06 2021-10-05 Outpatient DE [facility] [id number] [facility] 11:00:00 23:59:00 ELENA HAQUE 2021-09-06 2021-10-05 Outpatient De [facility] [id number] 11:00:00 23:59:00 Carmella Haque 2021-07-02 2021-08-01 [place] [id number] Memoria 15:09:00 04:59:00 Transplant r Adv Heart 28 l Clinic - Failure [place] Pre 2021-07-02 2021-08-01 [place] [id number] Memoria 15:09:00 04:59:00 Transplant r Adv Heart 28 l Clinic - Failure [place] Pre 2021-07-02 2021-07-31 Outpatient PATARROYO [facility] CAR 9628 [facility] 10:09:00 23:59:00 IDA VIVEROS 2021-07-02 2021-07-31 Outpatient Patarroyo [facility] [id number] 10:09:00 23:59:00 Yari Viveros 2021-07-23 2021-07-23 Outpatient [facility]Flavo [facility] 1126 21 Memoria 10:49:41 13:25:00 r [facility] 2021-07-23 2021-07-[address] [facility] 1126 21 Memoria 10:49:41 13:25:00 r [facility] 2021-07-23 2021-07-23 Outpatient Cort[place], [id number] 05:49:41 08:25:00 Ciro Ibrahim 2021-07-23 2021-07-23 Outpatient nullFlavo [facility] [id number] Memoria 05:49:41 08:25:00 r [facility] 2021-06-12 2021-06-12 Cedric Toro, 1.2.840.1 [id number] Methodi 00:00:00 00:00:00 Only Ciro 61891.1.1 [facility] 3.430.2.7 omar i .3.892697 l .8 2021-05-09 2021-06-08 OP nullFlavo [facility] [id number] Memoria 13:44:00 04:59:00 Transplant r [address] Pre 2021-05-09 2021-06-[address] [facility] [id number] Memoria 13:44:00 04:59:00 Transplant r [address] Pre 2021-05-09 2021-06-07 Outpatient DE [facility] 9625 [facility] 07:44:00 23:59:00 ELENA HAQUE 2021-05-09 2021-06-07 Outpatient De [facility] [id number] 07:44:00 23:59:00 Shabnam, 25 Elena Prieto 2021 2021-06-07 OP nullFlavo Transplant [id number] Memoria 17:00:00 04:59:00 Transplant r Center [address] [place] [address] Pre 2021 2021-06-07 OP nullFlavo Transplant [id number] Memoria 17:00:00 04:59:00 Transplant r [address] Pre 2021 2021-06-06 Outpatient DE [facility] 9626 [facility] 11:00:00 23:59:00 DEANNHANANESHILAELENA 2021 2021-06-06 Outpatient De [facility] [id number] 11:00:00 23:59:00 Shabnam, 26 Elena Prieto 2021-05-20 2021-05-24 [facility] Gus Jackson 1.2.840.1 [id number] Methodi 18:07:00 13:42:00 Ke Alaniz [address]855.1.[address] Gian[address] [place] 3.430.2.7 H ospita Jaret Decker Tori .3.890026 l David Gonzalez .8 2021-05-23 2021-05-23 Anesthesia Julia Clements 1.2.840.1 [id number] Methodi 12:44:00 13:00:00 Event RaghuDylon de la fuente Shree 94261.1.[address] 3.430.2.7 Hospit a .3.603890 l .8 2021-05-23 2021-05-23 Surgery Toro, 1.2.840.1 [id number] Methodi 12:20:00 12:45:[address] Jitendrabha 3.430.2.7 Ho spita i .3.921109 l .8 2021-05-20 2021-05-20 Travel 1.2.840.1 1.2.455.059 [id number] Methodi 00:00:00 00:00:[address] 3.430.2.7 0.2.7.3.698 Ho spita .3.496095 084.8 l .8 2021-05-09 2021-05-10 Institutio nullFlavo [facility] [id number] Memoria 17:17:00 05:59:00 n Patient r Outpatient 06 l [facility] 2021-05-09 2021-05-10 Institutio nullFlavo [facility] [id number] Memoria 17:17:00 05:59:00 n Patient r Outpatient 06 l [facility] 2021-05-09 2021-05-09 [address] [facility] [id number] 11:17:00 23:59:00 Antoine 06 2021-04-08 2021 OP nullFlavo Transplant [id number] Memoria 17:55:00 05:59:00 Transplant r Center 24 l [facility] Pre 2021-04-08 2021 OP nullFlavo Transplant [id number] Memoria 17:55:00 05:59:00 Transplant r Center 24 [facility] Pre 2021-04-08 2021-05-07 Outpatient DE [facility] 9624 [facility] 11:55:00 23:59:00 SHABNAM ELENA 2021-04-08 2021-05-07 Outpatient De [facility] [id number] 11:55:00 23:59:00 Shabnam Elena Maria 2021-04-29 2021-04-29 Office Silvino Cosme 6400 1.2.840.114 [id number] [place] 09:00:00 09:30:00 Visit JAXON HAMMOND 350.1.13.58 [place] [address].2.7.2.686 [id number] 2 2021-03-05 2021-04-04 OP nullFlavo Transplant [id number] Memoria 17:00:00 05:59:00 Transplant r Center 23 [facility] Pre 2021-03-05 2021-04-04 OP nullFlavo Transplant [id number] Memoria 17:00:00 05:59:00 Transplant r Center 23 [facility] Pre 2021-03-05 2021-04-03 Outpatient DE [facility] [id number] [facility] 11:00:00 23:59:00 ELENA HAQUE 2021-03-05 2021-04-03 Outpatient De [facility] [id number] 11:00:00 23:59:00 ShabnamEliazar Elena Prieto 2021-02-04 2021-03-06 OP nullFlavo Transplant [id number] Memoria 17:00:00 05:59:00 Transplant r Center 22 [facility] Pre 2021-02-04 2021-03-06 OP nullFlavo Transplant [id number] Memoria 17:00:00 05:59:00 Transplant r Center 22 [facility] Pre 2021-02-04 2021-03-05 Outpatient DE [facility] [id number] [facility] 11:00:00 23:59:00 ELENA HAQUE 2021-02-04 2021-03-05 Outpatient De [facility] [id number] 11:00:00 23:59:00 Golhananeshila, 22 Elena Ida 2021-02-06 2021-03-02 Recurring nullFlavo Oncology [id number] Memoria 14:58:00 00:00:00 r 19 braeden RuizZen 2021-02-06 2021-03-02 Recurring nullFlavo Oncology [id number] Memoria 14:58:00 00:00:00 r 19 braeden Zen 2021-02-06 2021-03-01 Outpatient AYDEN, [facility] [id number] [facility] 08:58:00 18:00:00 CAMELIA 2021-02-06 2021-03-01 Outpatient Ayden, [facility] [id number] 08:58:00 18:00:00 Camelia 19 2021-02-11 2021-02-11 EXT [facility] OP de EXT MSRDP [id number] [place] 00:00:00 00:00:00 [facility] [facility], LOCATION 350.1.13.58 [facility] 9.2.7.2.686 [id number] 2021-02-11 2021-02-11 EXT MHH OP de EXT MSRDP 1.2.840.114 1 [id number] [place] 00:00:00 00:00:00 [facility], LOCATION 350.1.13.58 Health Elena 9.2.7.2.686 [id number] 2021-01-01 2021-01-31 OP nullFlavo Transplant [id number] Memoria 16:00:00 05:59:00 Transplant r Center 21 [facility] Pre 2021-01-01 2021-01-31 OP nullFlavo Transplant [id number] [id number] Memoria 16:00:00 05:59:00 Transplant r Center 21 [facility] 2021-01-01 2021-01-30 Outpatient De [facility] [id number] 11:00:00 23:59:00 Shabnam, 21 Elena Maria 2021-01-02 2021-01-02 EXT MHH OP de EXT MSRDP 1.2.840.114 1 [id number] [place] 00:00:00 00:00:00 [facility], LOCATION 350.1.13.58 [facility] Elena 9.2.7.2.686 [id number] 2021-01-02 2021-01-02 EXT MHH OP de EXT MSRDP 1.2.840.114 1 [id number] [place] 00:00:00 00:00:00 [facility] 350.1.13.58 [facility] 9.2.7.2.686 [id number] 0 2021-01-01 2021-01-01 Outpatient DE MHHH H 9621 MHHH 11:00:00 11:00:00 ELENA HAQUE 2020-11-30 2020-12-30 OP nullFlavo Transplant 06960 [id number] Memoria 20:00:00 04:59:00 Transplant r Center 12 [facility] 2020-11-30 2020-12-30 OP nullFlavo Transplant [id number] [id number] Memoria 20:00:00 04:59:00 Transplant r Center 12 [facility] 2020-11-30 2020-12-30 OP nullFlavo Transplant 74680 [id number] Memoria 16:00:00 04:59:00 Transplant r Center 20 [facility] 2020-11-30 2020-12-30 OP nullFlavo Transplant [id number] [id number] Memoria 16:00:00 04:59:00 Transplant r Center 20 [facility] 2020-11-30 2020-12-29 Outpatient DE MHHH [facility] 9612 MH 15:00:00 23:59:00 ELENA HAQUE 2020-11-30 2020-12-29 Outpatient De [facility] [id number] 15:00:00 23:59:00 Georgia Haque 2020-11-30 2020-12-29 Outpatient DE MHHH H 9620 MHHH 11:00:00 23:59:00 ELENA HAQUE 2020-11-30 2020-12-29 Outpatient De [facility] [id number] 11:00:00 23:59:00 Paul Haque Ida 2020-12-27 2020-12-27 EXT MHH OP de EXT MSRDP 1.2.840.114 1 [id number] [place] 00:00:00 00:00:00 Golhananene, LOCATION 350.1.13.58 Health Elena 9.2.7.2.686 [id number] 2020-12-27 2020-12-27 EXT MHH OP de EXT MSRDP 1.2.840.114 1 [id number] [place] 00:00:00 00:00:00 Golhananene, LOCATION 350.1.13.58 Health Elena 9.2.7.2.686 [id number] 2020-12-03 2020-12-03 EXT MHH OP de EXT MSRDP 1.2.840.114 1 [id number] [place] 00:00:00 00:00:00 Golhananene, LOCATION 350.1.13.58 Health Elena 9.2.7.2.686 [id number] 2020-12-03 2020-12-03 EXT MHH OP de EXT MSRDP 1.2.840.114 1 [id number] [place] 00:00:00 00:00:00 Golhananene, LOCATION 350.1.13.58 Health Elena 9.2.7.2.686 [id number] 2020-10-31 2020-11-10 OP nullFlavo Transplant [id number] Memoria 16:00:00 04:59:00 Transplant r Center 18 [facility] Pre 2020-10-31 2020-11-10 OP nullFlavo Transplant [id number] [id number] Memoria 16:00:00 04:59:00 Transplant r Center 18 [facility] Pre 2020-10-31 2020-11-09 Outpatient DE [facility] 9618 [facility] 11:00:00 23:59:00 ELENA HAQUE 2020-10-31 2020-11-09 Outpatient De [facility] [id number] 11:00:00 23:59:00 Alfredo Haque 2020-10-22 2020-10-22 Office Silvino Cosme 6400 1.2.840.114 [id number] [place] 07:47:22 08:17:22 Visit JAXON HAMMOND 350.1.13.58 Health 9.2.7.2.686 [id number] 2020-10-12 2020-10-12 EXT MHH OP de EXT MSRDP 1.2.840.114 1 [id number] [place] 00:00:00 00:00:00 [facility], LOCATION 350.1.13.58 Health Elena 9.2.7.2.686 [id number] 2020-10-12 2020-10-12 EXT MHH OP de EXT MSRDP 1.2.840.114 1 [id number] [place] 00:00:00 00:00:00 [facility] 350.1.13.58 Health Elena 9.2.7.2.686 [id number] 0 2020-08-30 2020-09-29 OP nullFlavo Oncology [id number] Memoria 16:00:00 04:59:00 Transplant r 14 [facility] 2020-08-30 2020-09-29 OP nullFlavo Transplant [id number] [id number] Memoria 16:00:00 04:59:00 Transplant r Center 16 [facility] Pre 2020-08-30 2020-09-29 OP nullFlavo Transplant [id number] [id number] Memoria 16:00:00 04:59:00 Transplant r Center 16 [facility] Pre 2020-08-30 2020-09-29 OP nullFlavo Oncology [id number] Memoria 16:00:00 04:59:00 Transplant r [address] [place] [address] Pre 2020-08-30 2020-09-28 Outpatient BLUE [facility] 9616 [facility] 11:00:00 23:59:00 [place] 2020-08-30 2020-09-28 Outpatient AYDEN [facility] 9614 [facility] 11:00:00 23:59:00 CAMELIA 2020-08-30 2020-09-28 Outpatient Hasbun, [facility] [id number] 11:00:00 23:59:00 [place] 16 2020-08-30 2020-09-28 Outpatient Ayden, [facility] [id number] 11:00:00 23:59:00 Camelia 14 2020-09-19 2020-09-20 Emergency Maryan Oneill Merlyn 1.2.840.1 104 [id number] Methodi 12:17:00 17:35:00 Jeremy Coolandrew 39452.1.[address] 3.430.2.7 Hospit a .3.872979 l .8 2020-09-19 2020-09-19 Travel 1.2.840.1 1.2.086.278 2158 [id number] Methodi 00:00:00 00:00:[address] 3.430.2.7 0.2.7.3.698 Ho spita .3.776837 084.8 l .8 2020-08-15 2020-08-15 EXT MHH OP Hasbun, EXT MSRDP 1.2.840.114 1 [id number] [place] 00:00:00 00:00:00 [place] LOCATION 350.1.13.58 H ealth 9.2.7.2.686 [id number] 2020-08-15 2020-08-15 EXT MHH OP Hasbun, EXT MSRDP 1.2.840.114 1 [id number] [place] 00:00:00 00:00:00 [place] LOCATION 350.1.13.58 H ealth 9.2.7.2.686 [id number] 0 2020-08-14 2020-08-14 Office Opdae, 1.2.840.1 [id number] Methodi 09:57:50 10:57:04 Visit Dominique Choudhury 45120.1.1 600 s t 3.430.2.7 Hospit a .3.487108 l .8 2020-08-14 2020-08-14 Travel 1.2.840.1 1.2.091.456 1472 350325 Methodi 00:00:00 00:00:[address] 3.430.2.7 0.2.7.3.698 Ho spita .3.101432 084.8 l .8 2020-07-31 2020-07-31 Travel 1.2.840.1 1.2.491.743 6224 254421 Methodi 00:00:00 00:00:[address] 3.430.2.7 0.2.7.3.698 Ho spita .3.727590 084.8 l .8 2020-07-24 2020-07-25 Emergency Brittni Del Valle 1.2.84 0.1 [id number] Methodi 01:19:00 15:25:00 Jazmyn Torres 14490.1.[address] [facility] .3.878633 l .8 2020-07-24 2020-07-24 Travel 1.2.840.1 1.2.475.568 9602 567695 Methodi 00:00:00 00:00:[address] 3.430.2.7 0.2.7.3.698 Ho spita .3.022000 084.8 l .8 2020-07-23 2020-07-23 [facility] 1.2.840.1 [id number] 21 [id number] Methodi 07:07:00 15:31:00 Encounter Dominique Choudhury 81464.1.[address] 3.430.2.7 Hospit a .3.964109 l .8 2020-07-23 2020-07-23 Anesthesia Isabelle Wetzel A. 1.2.840.1 10 [id number] Methodi 11:04:00 12:42:00 Event Violette Forbes 74751.1.[address] 3.430.2.7 Hospit a .3.410310 l .8 2020-07-23 2020-07-23 Surgery [facility], 1.2.840.1 [id number] 297 [id number] Methodi 10:25:00 11:50:00 Dominique Choudhury 54160.1.1 352 s t 3.430.2.7 Hospit a .3.701778 l .8 2020-07-20 2020-07-20 Pre-Admiss [facility], 1.2.840.1 [id number] Methodi 07:28:16 08:28:16 ion Dominique Choudhury 14073.1.1 719 s t Testing 3.430.2.7 Hospit a .3.678993 l .8 2020-07-19 2020-07-19 Travel 1.2.840.1 1.2.177.789 3575 772894 Methodi 00:00:00 00:00:[address] 3.430.2.7 0.2.7.3.698 Ho spita .3.177922 084.8 l .8 2020-07-19 2020-07-19 Prep for Mccain, 1.2.840.1 [id number] Methodi 00:00:00 00:00:00 Surgery Abbi P [address]64.1.[address] 3.430.2.7 Hospit a .3.882897 l .8 2020-07-17 2020-07-17 Office [facility], 1.2.840.1 [id number] 999 [id number] Methodi 14:08:25 14:58:03 Visit Dominique Choudhury 25187.1.1 045 s t 3.430.2.7 Hospit a .3.770255 l .8 2020-07-17 2020-07-17 Travel 1.2.840.1 1.2.053.695 6299 365638 Methodi 00:00:00 00:00:[address] 3.430.2.7 0.2.7.3.698 spita .3.695486 084.8 l .8 2020-06-14 2020-07-14 OP nullFlavo Transplant 92570 77461 Memoria 12:03:00 04:59:00 Transplant r [place] 15 [facility] 2020-06-14 2020-07-14 OP nullFlavo Transplant 98569 [id number] Memoria 12:03:00 04:59:00 Transplant r [place] 15 [facility] 2020-06-14 2020-07-13 Outpatient HASBUN, [facility] 9615 [facility] 07:03:00 23:59:00 [facility] 2020-06-14 2020-07-13 Outpatient Hasbubrenda, [facility] [id number] 07:03:00 23:59:00 [place] 2020-07-10 2020-07-12 Emergency Constantin Aquino 1.2.840.1 1041 [id number] [id number] Methodi 12:50:00 16:36:00 Jeremy Cool 56133.1.[address] 3.430.2.7 Hospit a .3.274276 l .8 2020-07-11 2020-07-11 Anesthesia Serge Tilley 1.2.8 40.1 [id number] Methodi 17:55:00 19:35:00 Event Ollie Rolle 20643.1.[address] 3.430.2.7 Hospit a .3.498572 l .8 2020-07-11 2020-07-11 Surgery Leslie, 1.2.840.1 [id number] 492 [id number] Methodi 15:30:00 16:55:00 Dominique Choudhury 82293.1.1 578 s t 3.430.2.7 Hospit a .3.365667 l .8 2020-07-10 2020-07-10 Travel 1.2.840.1 1.2.679.698 1792 183107 Methodi 00:00:00 00:00:[address] 3.430.2.7 0.2.7.3.698 spita .3.762883 084.8 l .8 2020-06-09 2020-06-09 Outpatient MAIKOL [facility] 7508 [facility] 17:00:00 23:59:00 KATEY 2020-06-09 2020-06-09 EXT [facility] OP Lassiter, EXT MSRDP 1.2.840.114 [id number] [place] 00:00:00 00:00:00 Katey LOCATION 350.1.13.58 Health 9.2.7.2.686 [id number] 0 2020-06-09 2020-06-09 EXT [facility] OP Lassiter, EXT MSRDP 1.2.840.114 [id number] [place] 00:00:00 00:00:00 Katey LOCATION 350.1.13.58 Health 9.2.7.2.686 [id number] 0 2020 2020-06-07 OP nullFlavo Transplant [id number] [id number] Memoria 17:00:00 04:59:00 Transplant r [place] 13 [facility] 2020 2020-06-07 OP nullFlavo Transplant [id number] Memoria 17:00:00 04:59:00 Transplant r [place] 13 [facility] 2020 2020-06-06 Outpatient BLUE [facility] 9613 [facility] 11:00:00 23:59:00 [place] 2020 2020-06-06 Outpatient Blue [facility] [id number] 11:00:00 23:59:00 [place] 13 2020-04-04 2020-05-04 OP [facility]Flavo [facility] [id number] Memoria 12:56:00 05:59:00 Transplant r [address] Herm nora Pre Advanced Heart Failure 2020-04-04 2020-05-04 OP [facility]Fl[facility] [id number] Memoria 12:56:00 05:59:00 Transplant r [address] Herm nora Pre Advanced Heart Failure 2020-04-04 2020-05-03 [facility] 9611 [facility] 06:56:00 23:59:00 IDA VIVEROS 2020-04-04 2020-05-03 [facility] [id number] 06:56:00 23:59:00 Ben Viveros 2020-04-23 2020-04-23 Appointmen SILVINO COSME, [facility] Urology - 72 [id number] [place] 08:15:00 08:15:00 t; Bibi COSME i, M.D. [facility] 2020-03-08 2020-04-07 OP nullFlavo Transplant [id number] [id number] Memoria 17:00:00 05:59:00 Transplant r Center [address] [place] [address] 2020-03-08 2020-04-07 OP nullFlavo Transplant [id number] Memoria 17:00:00 05:59:00 Transplant r Center [address] [place] [address] 2020-03-08 2020-04-06 Outpatient DE [facility] 9610 [facility] 11:00:00 23:59:00 ELENA HAQUE 2020-03-08 2020-04-06 Outpatient De [facility] [id number] 11:00:00 23:59:00 Alix Haque 2020-04-04 2020-04-04 Appointmen ORGANTRANSP [facility] UTP [id number] [place] 07:00:00 07:00:00 t; EVANS Physi ci ORGANTRANS ans PLANT, OP 2020-03-08 2020-03-08 EXT MHH OP de EXT MSRDP 1.2.840.114 1 [id number] [place] 00:00:00 00:00:00 [facility], LOCATION 350.1.13.58 Health Elena 9.2.7.2.686 [id number] 0 2020-03-08 2020-03-08 EXT MHH OP de EXT MSRDP 1.2.840.114 1 [id number] [place] 00:00:00 00:00:00 [facility], LOCATION 350.1.13.58 Health Elena 9.2.7.2.686 [id number] 0 2020-01-18 2020-02-17 OP nullFlavo Transplant [id number] Memoria 15:00:00 05:59:00 Transplant r Center [address] [facility] Pre 2020-01-18 2020-02-17 OP nullFlavo Transplant [id number] [id number] Memoria 15:00:00 05:59:00 Transplant r Center 09 l [facility] 2020-01-18 2020-02-16 Outpatient De [facility] [id number] 09:00:00 23:59:00 Shabnam, 09 Elena Ida 2019-10-24 2019-10-24 Outpatient MHIE MHIE [id number] Memoria 09:45:00 09:45:00 03 [facility] 2019-10-24 2019-10-24 Outpatient MHIE MHIE [id number] Memoria 09:45:00 09:45:00 03 [facility] 2019-10-24 2019[facility] [place] [id number] [place] 09:45:00 09:45:00 t; Bibi COSME i, M.D. [facility] 2019-05-09 2019-05-09 Outpatient LASSITER [facility] [id number] [facility] 15:00:00 15:00:00 KATEY 2019-04-27 2019-04-28 [place] [id number] Memoria 14:30:00 05:59:59 r Urology TM 02 [facility] 2019-04-27 2019-04-28 [place] [id number] Memoria 14:30:00 05:59:59 r Urology TM 02 l [place] 2019-04-27 2019-04-28 [place] [id number] Memoria 14:00:00 05:59:59 r Urology [facility] 00 l [place] 2019-04-27 2019-04-28 [place] [id number] Memoria 14:00:00 05:59:59 r Urology [facility] 01 l [place] 2019-04-27 2019-04-28 [place] [id number] Memoria 14:00:00 05:59:59 r Urology [facility] 00 l [place] 2019-04-27 2019-04-28 Outpatient nullFlavo [facility] [id number] Memoria 14:00:00 05:59:59 r Urology [facility] 01 l Zen 2019-04-27 2019-04-27 Outpatient Silvino Cosme [facility] [id number] 08:30:00 23:59:59 02 2019-04-27 2019-04-27 Outpatient CarmelinaSilvino [facility] [id number] 08:00:00 23:59:59 00 2019-04-27 2019-04-27 Outpatient CarmelinaSilvino [facility] [id number] 08:00:00 23:59:59 2019-04-27 2019-04-27 Outpatient MHIE MHIE [id number] Memoria 08:30:00 08:30:00 02 l [place] 2019-04-27 2019-04-27 Outpatient MHIE MHIE [id number] Memoria 08:00:00 08:00:00 00 l [place] 2019-04-27 2019-04-27 Outpatient MHIE MHIE [id number] Memoria 08:00:00 08:00:00 [facility] 2019-04-15 OP nullFlavo [facility] [id number] Memoria 12:50:00 05:59:00 Transplant r [place] 05 [facility] Pre Advanced Heart Failure 2019-03-16 2019-04-15 OP nullFlavo [facility] [id number] Memoria 12:50:00 05:59:00 Transplant r [place] 05 [facility] Pre Advanced Heart Failure 2019-03-16 2019-04-14 Outpatient Yehuda [facility] [id number] 06:50:00 23:59:00 Arnaldo 05 Vikas 2019-04-01 2019-04-02 Outpatient [facility] [id number] Memoria 12:40:00 05:59:00 r Zen 06 [facility] 2019-04-01 2019-04-02 Outpatient [facility]Flavo [facility] [id number] Memoria 12:40:00 05:59:00 r [place] 06 [facility] 2019-04-01 2019-04-01 Outpatient Yehuda [facility] [id number] 06:40:00 23:59:00 Arnaldo 06 Vikas 2019-04-01 2019-04-01 Outpatient [facility] CAR [id number] [facility] 06:40:00 06:40:00 2019-03-16 2019-03-16 Appointmen ORGANTRANSP [facility] [id number] [place] 08:30:00 08:30:00 t; LANT, OP Physi ci ORGANTRANS ans PLANT, OP 2019-03-16 2019-03-16 Outpatient [facility] CAR [id number] [facility] 06:50:00 06:50:00 2018-08-20 2018-09-19 OP [facility]Fl[facility] [id number] Memoria 13:05:00 04:59:00 Transplant r [place] 03 l [facility] n Pre 2018-08-20 2018-09-19 OP nullFlavo [facility] [id number] Memoria 13:05:00 04:59:00 Transplant r [place] 03 l [facility] n Pre 2018-08-20 2018-09-18 Outpatient Yehuda [facility] [id number] 08:05:00 23:59:00 Arnaldo 03 Vikas 2018-08-20 2018-08-20 Outpatient [facility] CAR [id number] [facility] 08:05:00 08:05:00 2018-07-07 2018-08-06 Recurring [facility]Flavo [facility] [id number] Memoria 14:33:00 04:59:00 r [facility] 2018-07-07 2018-08-06 Recurring [facility] [id number] Memoria 14:33:00 04:59:00 r Zen 01 [facility] 2018-07-07 2018-08-05 Outpatient Yehuda [facility] [id number] 09:33:00 23:59:00 Arnaldo 01 Vikas 2018-06-23 2018-07-23 Recurring nullFlavo Oncology [id number] Memoria 15:27:00 04:59:00 r Claudia Zaldivar 2018-06-23 2018-07-23 Recurring [facility]Flavo Oncology [id number] Memoria 15:27:00 04:59:00 r Claudia Zaldivar 2018-06-23 2018-07-22 Outpatient Ayden, [facility] [id number] 10:27:00 23:59:00 Camelia 2018-07-07 2018-07-09 [place] [id number] Memoria 13:31:02 04:59:59 Message r Adv Heart 01 l Failure [place] 2018-07-07 2018-07-09 [place] [id number] Memoria 13:31:02 04:59:59 Message r Adv Heart 01 l Failure [place] 2018-07-07 2018-07-08 Outpatient MH91 MH91 [id number] 08:31:02 23:59:59 2018-07-07 2018-07-07 Outpatient [facility] PUL 9601 [facility] 09:33:00 09:33:00 2018-06-30 2018-07-01 Outpt Diag nullFlavo [facility] [id number] Memoria 16:19:00 04:59:00 Services r Outpatient 03 l Imaging [place] 2018-06-30 2018-07-01 Outpt Diag nullFlavo [facility] [id number] Memoria 16:19:00 04:59:00 Services r Outpatient 03 l Imaging [facility] 2018-06-30 2018-06-30 [facility] [id number] 11:19:00 23:59:00 Camelia 2018-06-29 2018-06-29 Appointebenezer HARRIS UTP UTP [id number] [place] 14:00:00 14:00:00 t; Timothy Tejeda i, an s [facility], M.D. KRISTOFER, M.D. 2018-06-23 2018-06-23 Outpatient [facility] [id number] MH 10:27:00 10:27:00 2018-06-23 2018-06-23 AppointKODY House UTP [id number] [place] 10:00:00 10:00:00 t; CAMELIA HENSLEY Phys ici MODUPE, M.D. ans M.D. 2018-06-08 2018-06-08 Appointebenezer HARRIS UTP UTP [id number] [place] 10:00:00 10:00:00 t; W, Physic i christel SHIPMAN M.D. KRISTOFER, M.D. 2018-05-12 2018-05-13 Outpatient [facility] [id number] Memoria 13:51:00 04:59:00 r Zen 04 [facility] 2018-05-12 2018-05-13 Outpatient [facility] [id number] Memoria 13:51:00 04:59:00 r Zen 04 [facility] 2018-05-12 2018-05-12 Outpatient Lassiter, [facility] [id number] 08:51:00 23:59:00 Katey Olga Lidia [place] 2018-04-06 2018-05-06 OP [facility] [id number] Memoria 14:35:00 05:59:00 Transplant r [place] 00 l [facility] n [facility] 2018-04-06 2018-05-06 OP [facility]Flavo [facility] [id number] Memoria 14:35:00 05:59:00 Transplant r [place] 00 l [facility] n [facility] 2018-04-06 2018-05-05 Outpatient De [facility] [id number] 08:35:00 23:59:00 Shabnam Raulito Elena Ida 2017-09-23 2017-09-23 Outpt Diag nullFlavo [facility] [id number] Memoria 13:00:00 13:00:00 Services r Outpatient 02 l [facility] 2017-09-23 2017-09-23 Outpt Diag nullFlavo [facility] [id number] Memoria 13:00:00 13:00:00 Services r Outpatient 02 l [facility] 2017-09-23 2017-09-23 Outpatient Monet, OIP OIP [id number] 08:00:00 08:00:00 Lucila 02 [place] 2016-11-03 2016-11-03 Emergency [facility]Flavo [facility] [id number] Memoria 15:01:00 21:46:00 r [place] 03 [facility] 2016-11-03 2016-11-03 Emergency nullFlavo [facility] [id number] Memoria 15:01:00 21:46:00 r [place] 03 l [facility] 2016-11-03 2016-11-03 Outpatient Garsanchoo, MHPL MHPL [id number] 10:01:00 16:46:00 Damion 03 2015-09-10 2015-09-10 EC [facility]Flavo [facility] [id number] Memoria 17:33:00 22:04:00 Emergency r [place] [facility] 2015-09-10 2015-09-10 EC nullFlavo [facility] [id number] Memoria 17:33:00 22:04:00 Emergency r [facility] 2015-09-10 2015-09-10 Outpatient Gemma, MHPL MHPL [id number] 12:33:00 17:04:00 Brigido Manning 2015-06-20 2015-06-20 EC [facility]Flavo [facility] [id number] Memoria 15:02:00 22:07:00 Emergency r [place] [facility] 2015-06-20 2015-06-20 EC [facility]Flavo [facility] [id number] Memoria 15:02:00 22:07:00 Emergency r [place] [facility] 2015-06-20 2015-06-20 Outpatient Thornton, MHPL MHPL [id number] 10:02:00 17:07:00 Mayura 01 [facility] 2014-06-05 2014-06-06 Outpt Diag nullFlavo [facility] [id number] Memoria 15:20:00 04:59:00 Services r Outpatient 01 l [facility] 2014-06-05 2014-06-06 Outpt Diag nullFlavo [facility] [id number] Memoria 15:20:00 04:59:00 Services r Outpatient 01 l [facility] 2014-06-05 2014-06-05 [place]patient [place], [id number] 10:20:00 23:59:00 Seg[place] [id number] Edd [id number] 01 Results Test Description Test Time Test Comments Results Result Comments Source BLOOD BANK RESULTS 2022-06-17 12:07:00 Test Item Value Reference Range Interpretation Comme nts ABO/RH Confirm (test code = ABO/RH Confirm) O POS [facility] [id number] 12:07:00 Test Item Value Reference Range Interpretation Comments ABO/RH Confirm (test code = ABO/RH O POS Confirm) [facility] [id number] 12:07:00 Test Item Value Reference Range Interpretation Comments ABO/RH Confirm (test code = ABO/RH O POS Confirm) [facility] [id number] 11:57:00 Test Item Value Reference Range Interpretation Comments Titer (test code = Titer) 64 1 [facility] [id number] 11:57:00 Test Item Value Reference Range Interpretation Comments Antibody Titered (test code = Anti-A1 Antibody Titered) [facility] [id number] 11:57:00 Test Item Value Reference Range Interpretation Comments Titer2 (test code = Titer2) 32 1 [facility] [id number] 11:57:00 Test Item Value Reference Range Interpretation Comments Antibody Titered2 (test code = Anti-B Antibody Titered2) [facility] [id number] 11:57:00 Test Item Value Reference Range Interpretation Comments OP ABORh Int (test code = OP ABORh Int) O POS [facility] [id number] 11:57:00 Test Item Value Reference Range Interpretation Comments OP ABSC Gel Interp Negative (06/17/22 6:57 (test code = OP ABSC AM) Gel Interp) [id number] 11:57:00 Test Item Value Reference Range Interpretation Comments Glucose Lvl (test code = Glucose Lvl) 95 70-99 [id number] 11:57:00 Test Item Value Reference Range Interpretation Comments BUN (test code = BUN) 60 7-22 [facility] [id number] 11:57:00 Test Item Value Reference Range Interpretation Comments Creatinine Lvl (test code = Creatinine 6.84 0.50-1.40 Lvl) [facility] [id number] 11:57:00 Test Item Value Reference Range Interpretation Comments Sodium Lvl (test code = Sodium Lvl) 141 135-145 [facility] CampusZnzvnbvNRZUQGXVN2256-43-51 11:57:00 Test Item Value Reference Range Interpretation Comments Potassium Lvl (test code = Potassium 3.8 3.5-5.1 Lvl) [facility]YY0418[facility] 11:57:00 Test Item Value Reference Range Interpretation Comments Chloride Lvl (test code = Chloride Lvl) 109 95-109 [facility]enTosnfaqZIAOZFKJU2163-44-97 11:57:00 Test Item Value Reference Range Interpretation Comments CO2 (test code = CO2) 24 24-32 [facility]enUrxpnbxZJZVFJJPJ1426-79-61 11:57:00 Test Item Value Reference Range Interpretation Comments Calcium Lvl (test code = Calcium Lvl) 8.6 8.5-10.5 [facility]enGvbkannIEXKVVHSK3286-87-32 11:57:00 Test Item Value Reference Range Interpretation Comments Total Protein (test code = Total 6.6 6.4-8.4 Protein) [facility] CampusGjkmplwDTZJFPOGQ5168-81-54 11:57:00 Test Item Value Reference Range Interpretation Comments Albumin Lvl (test code = Albumin Lvl) 3.3 3.5-5.0 [facility]BeacdfcNBXDDSGGX2028-62-73 11:57:00 Test Item Value Reference Range Interpretation Comments ALT (test code = ALT) 11 See_Comment [Auto mated message] The system which ge nerated this result transmit nicko reference range : <=65. The reference range was not used to interpr et this result as adebayo l/abnormal. [facility]enVhdhkuqXZHPOJKII0777-83-52 11:57:00 Test Item Value Reference Range Interpretation Comments AST (test code = AST) 7 See_Comment [Auto mated message] The system which ge nerated this result transmit nicko reference range : <=37. The reference range was not used to interpr et this result as adebayo l/abnormal. [facility]enEkseuiiLMAZVIVZE8555-53-23 11:57:00 Test Item Value Reference Range Interpretation Comments Alk Phos (test code = Alk Phos) 48 39-136 [facility]enVmqoudaFQBXBWSVU9697-42-38 11:57:00 Test Item Value Reference Range Interpretation Comments Bili Total (test code = Bili Total) 0.4 0.2-1.3 [facility]enWbzoputFHCBTWEFC2242-00-95 11:57:00 Test Item Value Reference Range Interpretation Comments AGAP (test code = AGAP) 11.8 10.0-20.0 [facility] CampusCqccjzkHLTOWOZCW6699-97-72 11:57:00 Test Item Value Reference Range Interpretation Comments B/C Ratio (test code = B/C Ratio) 9 1 6-25 [facility] CampusYlmhsmqETTAVYMUT8291-71-41 11:57:00 Test Item Value Reference Range Interpretation Comments Globulin (test code = Globulin) 3.3 2.7-4.2 [facility] CampusKnbvxetAIWVQPKSV2420-55-70 11:57:00 Test Item Value Reference Range Interpretation Comments A/G Ratio (test code = A/G Ratio) 1.0 1 0.7-1.6 [facility] CampusDcnpftyKQOAXIDLX3863-63-08 11:57:00 Test Item Value Reference Range Interpretation Comments eGFR (test code = eGFR) 8 [facility] CampusLizyjmfDLLLARWVW7053-63-87 11:57:00 Test Item Value Reference Range Interpretation Comments Bili Total (test code = Bili Total) 0.4 0.2-1.3 [facility] CampusTwbkxyvKCAGGBGIE9292-74-71 11:57:00 Test Item Value Reference Range Interpretation Comments Bili Direct (test code 0.1 See_Comment [Aut omated message] The = Bili Direct) system which generated this result tra nsmitted reference range : <=0.3. The reference r carlos was not used to int erpret this result as adebayo l/abnormal. [facility] CampusCoevakdNWSHXZINK2503-16-81 11:57:00 Test Item Value Reference Range Interpretation Comments Bili Indirect (test 0.3 See_Comment [Automa nicko message] The code = Bili Indirect) system which generated this result tra nsmitted reference range : <=1.0. The reference r carlos was not used to int erpret this result as normal/abnormal . [facility] CampusCffrklaZQYRUKHSS1803-23-84 11:57:00 Test Item Value Reference Range Interpretation Comments C-Peptide (test code = C-Peptide) 10.96 0.80-3.85 [facility] CampusNnvwerpYZEMDRHYE5238-70-29 11:57:00 Test Item Value Reference Range Interpretation Comments Nicotine Lvl (test code = Nicotine Lvl) no gt [facility]enHfslflrQBKRVFHRG0299-52-01 11:57:00 Test Item Value Reference Range Interpretation Comments Cotinine Lvl (test code = Cotinine Lvl) no gt [facility] CampusYzgxpilKHBXGHNZF6449-81-57 11:57:00 Test Item Value Reference Range Interpretation Comments Hgb A1C (test code = Hgb A1C) 5.3 [facility] CampusHwkbkqrAREUZPLFT0490-80-20 11:57:00 Test Item Value Reference Range Interpretation Comments Trig (test code = Trig) 55 [facility] CampusDewesacADOCYNZIQ6970-34-12 11:57:00 Test Item Value Reference Range Interpretation Comments Chol (test code = Chol) 88 [facility] CampusYeioedoXKLEHSLHE6570-09-22 11:57:00 Test Item Value Reference Range Interpretation Comments HDL (test code = HDL) 37 [facility] CampusYyjczfbLPAAQKRNZ2942-46-75 11:57:00 Test Item Value Reference Range Interpretation Comments Chol/HDL Ratio (test code = Chol/HDL 2.38 1 4.00-7.30 Ratio) [facility] CampusTrepoykHBLXMDCPO8280-71-29 11:57:00 Test Item Value Reference Range Interpretation Comments LDL (Calculated) (test code = LDL 40 (Calculated)) [facility] CampusCpbtdniNOIWJJUOO5050-76-20 11:57:00 Test Item Value Reference Range Interpretation Comments VLDL (test code = VLDL) 11 1 [facility] CampusBydcvrcSAGBZPGVB3954-78-46 11:57:00 Test Item Value Reference Range Interpretation Comments Phosphorus (test code = Phosphorus) 6.5 2.5-4.5 [facility] CampusGoplvzhOBDAGFHAY1402-18-74 11:57:00 Test Item Value Reference Range Interpretation Comments PSA (test code = PSA) 1.12 [facility] CampusDgjvtkzEECZDGZMW4794-02-30 11:57:00 Test Item Value Reference Range Interpretation Comments LDH (test code = LDH) 137 98-[address] [facility] HospitalTkeyzqzWHBMANSMRJ8144-08-89 11:57:00 Test Item Value Reference Range Interpretation Comments Segs (test code = Segs) 74.6 45.0-75.[address] [facility] HospitalYhofvmhHPWVVKQJWZ1532-93-48 11:57:00 Test Item Value Reference Range Interpretation Comments Lymphocytes (test code = Lymphocytes) 17.8 20.0-40.[address] [facility] HospitalVzgjkzdACVLTQDQZA4581-62-66 11:57:00 Test Item Value Reference Range Interpretation Comments Monocytes (test code = Monocytes) 5.4 2.0-12.0 [facility]NjycxhjBKYZDVKMWS3843-42-95 11:57:00 Test Item Value Reference Range Interpretation Comments Eosinophils (test code = 1.6 See_Comment [A utomated message] The Eosinophils) system which ge nerated this result tra nsmitted reference range : <=4.0. The reference r carlos was not used to int erpret this result as normal/abnormal . [facility] HospitalWjmzxrlXKEPAZWUZA1931-83-83 11:57:00 Test Item Value Reference Range Interpretation Comments Basophils (test code = 0.6 See_Comment [Aut omated message] The Basophils) system which ge nerated this result tra nsmitted reference range : <=1.0. The reference r carlos was not used to int erpret this result as normal/abnormal . [place] [address]-04-18 11:57:00 Test Item Value Reference Range Interpretation Comments Neutrophils # (test code = Neutrophils 7.1 1.5-8.1 #) [place] 045033-04-18 11:57:00 Test Item Value Reference Range Interpretation Comments Lymphocytes # (test code = Lymphocytes 1.7 1.0-5.5 #) [place] [address]-04-18 11:57:00 Test Item Value Reference Range Interpretation Comments Monocytes # (test code 0.5 See_Comment [Aut omated message] The = Monocytes #) system which generated this result tra nsmitted reference range : <=0.8. The reference r carlos was not used to int erpret this result as normal/abnormal . [facility] HospitalKrkndmpWCQYGBHAEH8952-52-91 11:57:00 Test Item Value Reference Range Interpretation Comments Eosinophils # (test code 0.2 See_Comment [A utomated message] The = Eosinophils #) system [facility] h generated this result tra nsmitted reference range : <=0.5. The reference r carlos was not used to int erpret this result as normal/abnormal . [place] 045033-04-18 11:57:00 Test Item Value Reference Range Interpretation Comments Basophils # (test code 0.1 See_Comment [Aut omated message] The = Basophils #) system which generated this result tra nsmitted reference range : <=0.2. The reference r carlos was not used to int erpret this result as normal/abnormal . [place] 045033-04-18 11:57:00 Test Item Value Reference Range Interpretation Comments PT (test code = PT) 13.4 s 12.0-14.7 [facility] RegionIwkysinSNVGORVKEB4580-60-07 11:57:00 Test Item Value Reference Range Interpretation Comments INR (test code = INR) 1.02 1 0.85-1.17 [facility] RegionPlblhdbWYHRFRNTZX3059-92-22 11:57:00 Test Item Value Reference Range Interpretation Comments PTT (test code = PTT) 29.2 s 22.9-35.8 [facility] RegionAynezwkZIIKASFFRM0357-66-87 11:57:00 Test Item Value Reference Range Interpretation Comments WBC (test code = WBC) 9.6 3.7-10.4 [facility] RegionKlvzbhsPDYJPHIZWP6391-11-06 11:57:00 Test Item Value Reference Range Interpretation Comments RBC (test code = RBC) 3.28 4.70-6.10 [facility] RegionSxzuumwMIRDQSRWFX5403-13-72 11:57:00 Test Item Value Reference Range Interpretation Comments Hgb (test code = Hgb) 10.3 14.0-18.[address] [facility] HospitalHssehwfVBQNPXXAKU3060-64-08 11:57:00 Test Item Value Reference Range Interpretation Comments Hct (test code = Hct) 31.9 42.0-54.0 [facility] RegionNokyxswVYXVYYSUSZ9821-53-03 11:57:00 Test Item Value Reference Range Interpretation Comments MCV (test code = MCV) 97.3 80.0-94.0 [facility] RegionQnampqfRLSUBAMTDF2035-55-93 11:57:00 Test Item Value Reference Range Interpretation Comments MCH (test code = MCH) 31.3 pg 27.0-31.0 [facility] RegionSzzeuhyOTFLUVJFSP4077-02-44 11:57:00 Test Item Value Reference Range Interpretation Comments MCHC (test code = MCHC) 32.2 32.0-36.[address] [facility] HospitalQoesiujGFGYQOXTQE3475-18-49 11:57:00 Test Item Value Reference Range Interpretation Comments RDW (test code = RDW) 16.6 11.5-14.5 [facility] RegionKpwbcdbXXOCJCJQYS5862-61-16 11:57:00 Test Item Value Reference Range Interpretation Comments Platelet (test code = Platelet) 209 133-450 [facility] RegionXqljokjNSMUFGSIJN1360-50-30 11:57:00 Test Item Value Reference Range Interpretation Comments MPV (test code = MPV) 8.7 7.4-10.4 [facility]AoqbhluGAAQAPBPSC2649-60-96 11:57:00 Test Item Value Reference Range Interpretation Comments Glutam Acid Ab (test code = Glutam Acid no gt Ab) [facility]kwpfzzNCHMTXQMGL8249-50-77 11:57:00 Test Item Value Reference Range Interpretation Comments Hep Bs Ab (test code = Hep Bs Ab) [facility]t [facility]QsozsgxIXODMCLNDO5924-94-72 11:57:00 Test Item Value Reference Range Interpretation Comments Hep Bs Ag (test code Negative *NA*(06/17/22 = Hep Bs Ag) 6:57 AM) [facility]KjseksuGJDRCHNNSZ8043-71-85 11:57:00 Test Item Value Reference Range Interpretation Comments Hep C Ab (test code = Negative *NA*(06/17/22 Hep C Ab) 6:57 AM) [facility] TylerRbsgawxDZLFRDSOZC4762-20-46 11:57:00 Test Item Value Reference Range Interpretation Comments HIV Ag/Ab 4th Gen Negative *NA*(06/17/22 (test code = HIV 6:57 AM) Ag/Ab 4th Gen) [facility]AwnjceaDUPIRYCXWJ5858-37-35 11:57:00 Test Item Value Reference Range Interpretation Comments CMV IgG (test code = CMV IgG) [facility] gt [facility] TylerNovcstxTPGFDLTLCN6052-42-10 11:57:00 Test Item Value Reference Range Interpretation Comments EBV VCA IgG (test code = EBV VCA IgG) 213.00 [place] [address]-04-18 11:57:00 Test Item Value Reference Range Interpretation Comments Hep A Tot (test code = Hep A Tot) REACTIVE [facility] TylerOtaidosEAJWLCDKDV7257-01-88 11:57:00 Test Item Value Reference Range Interpretation Comments HSV 1 IgG (test code = HSV 1 IgG) 22.60 [place] [address]-04-18 11:57:00 Test Item Value Reference Range Interpretation Comments HSV 2 IgG (test code = HSV 2 IgG) [facility]t [facility] TylerWfwtauzCKKOHNNRVC9639-12-23 11:57:00 Test Item Value Reference Range Interpretation Comments T-Spot.TB (test code = T-Spot.TB) Negative [facility] TylerTbtpthcCEPGGDOHJG7301-15-33 11:57:00 Test Item Value Reference Range Interpretation Comments T-Spot Pnl A Neg Ctrl Corrected (test 0 1 code = T-Spot Pnl A Neg Ctrl Corrected) [facility] TylerCrjmsoyJHNYPTMDCB8638-11-32 11:57:00 Test Item Value Reference Range Interpretation Comments T-Spot Pnl B Neg Ctrl Corrected (test 0 1 code = T-Spot Pnl B Neg Ctrl Corrected) [facility] TylerGqowblsHGZNELPQYF2845-21-58 11:57:00 Test Item Value Reference Range Interpretation Comments T-Spot Neg Ctrl (test code = T-Spot Passed Neg Ctrl) [facility] TylerElfpdxsRKLXHECIVK1038-61-53 11:57:00 Test Item Value Reference Range Interpretation Comments T-Spot Pos Ctrl (test code = T-Spot Passed Pos Ctrl) [facility] TylerJawgvgiGNSHOJSXLL7021-91-07 11:57:00 Test Item Value Reference Range Interpretation Comments Treponemal Ab (test code Non-Reactive = Treponemal Ab) *NA*(06/17/22 6:57 AM) [facility] TylerPboejzxXGGBCFIJSI0089-95-00 11:57:00 Test Item Value Reference Range Interpretation Comments Varicella IgG (test code = Varicella 912.50 IgG) [facility] TylerEtnanliGJIBCXKRLV6949-25-00 11:57:00 Test Item Value Reference Range Interpretation Comments Mumps IgG (test code = Mumps IgG) no gt [facility] CenterRtxrjpxQBPSQZNVPX3507-90-60 11:57:00 Test Item Value Reference Range Interpretation Comments Rubella IgG (test code = Rubella IgG) no [facility]hljppbWMTXHPFHMH2165-83-00 11:57:00 Test Item Value Reference Range Interpretation Comments Rubeola IgG (test code = Rubeola IgG) 174.00 [facility] BVTIJOA2856-09-96 11:57:00 Test Item Value Reference Range Interpretation Comments Misc Quest (test code = Misc Quest) REPORT [facility] ZJTAVDI9930-88-79 11:57:00 Test Item Value Reference Range Interpretation Comments Titer (test code = Titer) 64 1 [facility] GTDWWSL7438-31-10 11:57:00 Test Item Value Reference Range Interpretation Comments Antibody Titered (test code = Anti-A1 Antibody Titered) [facility] TZEXOXC0888-05-68 11:57:00 Test Item Value Reference Range Interpretation Comments Titer2 (test code = Titer2) 32 1 [facility] YNKIZNG1354-26-09 11:57:00 Test Item Value Reference Range Interpretation Comments Antibody Titered2 (test code = Anti-B Antibody Titered2) [facility] FPLXCBQ7026-32-41 11:57:00 Test Item Value Reference Range Interpretation Comments OP ABORh Int (test code = OP ABORh Int) O POS [facility] BDITOPV5398-48-89 11:57:00 Test Item Value Reference Range Interpretation Comments OP ABSC Gel Interp Negative (06/17/22 6:57 (test code = OP ABSC AM) Gel Interp) [facility] CampusPmuydgdPSEWOURZD5544-84-39 11:57:00 Test Item Value Reference Range Interpretation Comments Glucose Lvl (test code = Glucose Lvl) 95 70-99 [facility] CampusKvydmrdLPGUZHJJR2611-39-76 11:57:00 Test Item Value Reference Range Interpretation Comments BUN (test code = BUN) 60 7-22 [facility] CampusWfhhsmjSJLKFDOLI5886-26-13 11:57:00 Test Item Value Reference Range Interpretation Comments Creatinine Lvl (test code = Creatinine 6.84 0.50-1.40 Lvl) [facility] CampusIgqqbwkQRNEEKYJQ0310-98-56 11:57:00 Test Item Value Reference Range Interpretation Comments Sodium Lvl (test code = Sodium Lvl) 141 135-145 [facility] CampusAaqjeeyEASXVAMPK3123-41-17 11:57:00 Test Item Value Reference Range Interpretation Comments Potassium Lvl (test code = Potassium 3.8 3.5-5.1 Lvl) [facility] CampusCpcshpeNLICKBICA6492-56-27 11:57:00 Test Item Value Reference Range Interpretation Comments Chloride Lvl (test code = Chloride Lvl) 109 95-109 [facility] CampusNfgqqtbZYRSNAEZE1142-76-41 11:57:00 Test Item Value Reference Range Interpretation Comments CO2 (test code = CO2) 24 24-32 [facility] CampusXgtlxguMACRVWQBN6555-84-00 11:57:00 Test Item Value Reference Range Interpretation Comments Calcium Lvl (test code = Calcium Lvl) 8.6 8.5-10.5 [facility] CampusBzpflriQLHMQXRDQ9010-02-81 11:57:00 Test Item Value Reference Range Interpretation Comments Total Protein (test code = Total 6.6 6.4-8.4 Protein) [facility] CampusUdywbhiFPLNEDBEK4841-75-13 11:57:00 Test Item Value Reference Range Interpretation Comments Albumin Lvl (test code = Albumin Lvl) 3.3 3.5-5.0 [facility] CampusGwahonsERVRFLZXI8528-68-63 11:57:00 Test Item Value Reference Range Interpretation Comments ALT (test code = ALT) 11 See_Comment [Auto mated message] The system which ge nerated this result transmit nicko reference range : <=65. The reference range was not used to interpr et this result as adebayo l/abnormal. [facility] PftkjffMPQHSFTHR4828-24-12 11:57:00 Test Item Value Reference Range Interpretation Comments AST (test code = AST) 7 See_Comment [Auto mated message] The system which ge nerated this result transmit nicko reference range : <=37. The reference range was not used to interpr et this result as adebayo l/abnormal. [facility]IucxscvJIDALXCDA2601-96-15 11:57:00 Test Item Value Reference Range Interpretation Comments Alk Phos (test code = Alk Phos) 48 39-136 [facility] ZuetvkwVJFAEPIDZ7663-49-43 11:57:00 Test Item Value Reference Range Interpretation Comments Bili Total (test code = Bili Total) 0.4 0.2-1.3 [facility] SpogrnkLMXKDWRLZ0600-28-07 11:57:00 Test Item Value Reference Range Interpretation Comments AGAP (test code = AGAP) 11.8 10.0-20.0 [facility] AspbaieQBKBRDDYR8981-59-26 11:57:00 Test Item Value Reference Range Interpretation Comments B/C Ratio (test code = B/C Ratio) 9 1 6-25 [facility] NftadfxLFDWESPUM8939-42-21 11:57:00 Test Item Value Reference Range Interpretation Comments Globulin (test code = Globulin) 3.3 2.7-4.2 [facility] MoqwdjvVLRARVJES8578-92-70 11:57:00 Test Item Value Reference Range Interpretation Comments A/G Ratio (test code = A/G Ratio) 1.0 1 0.7-1.6 [facility] XcasjaxPJLRITRPJ0871-68-36 11:57:00 Test Item Value Reference Range Interpretation Comments eGFR (test code = eGFR) 8 [facility] YdqbkrvPKURGTRXD0405-04-61 11:57:00 Test Item Value Reference Range Interpretation Comments Bili Total (test code = Bili Total) 0.4 0.2-1.3 [facility] EyxuawcJVCLSWUPU3329-99-25 11:57:00 Test Item Value Reference Range Interpretation Comments Bili Direct (test code 0.1 See_Comment [Aut omated message] The = Bili Direct) system which generated this result tra nsmitted reference range : <=0.3. The reference r carlos was not used to int erpret this result as adebayo l/abnormal. [facility] AighsqhULFMPUTFJ6468-73-88 11:57:00 Test Item Value Reference Range Interpretation Comments Bili Indirect (test 0.3 See_Comment [Automa nicko message] The code = Bili Indirect) system which generated this result tra nsmitted reference range : <=1.0. The reference r carlos was not used to int erpret this result as normal/abnormal . [facility]enYfrqsneLJTZDSYWT3972-28-84 11:57:00 Test Item Value Reference Range Interpretation Comments C-Peptide (test code = C-Peptide) 10.96 0.80-3.85 [facility]enAvsunahFRDYQXLCU2562-37-78 11:57:00 Test Item Value Reference Range Interpretation Comments Nicotine Lvl (test code = Nicotine Lvl) no gt [facility]enGpflqkpXXOCIPUAV3281-13-17 11:57:00 Test Item Value Reference Range Interpretation Comments Cotinine Lvl (test code = Cotinine Lvl) no gt [facility]enZcmognyYHJMJYEJE6920-77-39 11:57:00 Test Item Value Reference Range Interpretation Comments Hgb A1C (test code = Hgb A1C) 5.3 [facility]enAbyydyfMTRTYHFLO3183-16-04 11:57:00 Test Item Value Reference Range Interpretation Comments Trig (test code = Trig) 55 [facility]enDzflbzhAMWAJPVIR6323-30-70 11:57:00 Test Item Value Reference Range Interpretation Comments Chol (test code = Chol) 88 [facility]enWgoplbaTCJHQGHLY5377-27-21 11:57:00 Test Item Value Reference Range Interpretation Comments HDL (test code = HDL) 37 [facility]enVugchqkUAFILXQQY0747-45-59 11:57:00 Test Item Value Reference Range Interpretation Comments Chol/HDL Ratio (test code = Chol/HDL 2.38 1 4.00-7.30 Ratio) [facility]enSlbmzapJOVRWWDST9140-59-95 11:57:00 Test Item Value Reference Range Interpretation Comments LDL (Calculated) (test code = LDL 40 (Calculated)) [facility]enAbdbzziLGESZEZNI7572-21-46 11:57:00 Test Item Value Reference Range Interpretation Comments VLDL (test code = VLDL) 11 1 [facility] CampusFhihfcqPJLJCWWWQ4503-34-58 11:57:00 Test Item Value Reference Range Interpretation Comments Phosphorus (test code = Phosphorus) 6.5 2.5-4.5 [facility] CampusPzqqzoxOWVLXDHJZ6885-41-86 11:57:00 Test Item Value Reference Range Interpretation Comments PSA (test code = PSA) 1.12 [place] [address]-04-18 11:57:00 Test Item Value Reference Range Interpretation Comments LDH (test code = LDH) 137 98-192 [place] 045033-04-18 11:57:00 Test Item Value Reference Range Interpretation Comments Segs (test code = Segs) 74.6 45.0-75.0 [place] 045033-04-18 11:57:00 Test Item Value Reference Range Interpretation Comments Lymphocytes (test code = Lymphocytes) 17.8 20.0-40.0 [place] 045033-04-18 11:57:00 Test Item Value Reference Range Interpretation Comments Monocytes (test code = Monocytes) 5.4 2.0-12.0 [place] 045033-04-18 11:57:00 Test Item Value Reference Range Interpretation Comments Eosinophils (test code = 1.6 See_Comment [A utomated message] The Eosinophils) system which ge nerated this result tra nsmitted reference range : <=4.0. The reference r carlos was not used to int erpret this result as normal/abnormal . [facility] HospitalIambvhhLAJOYYSGXR9158-61-47 11:57:00 Test Item Value Reference Range Interpretation Comments Basophils (test code = 0.6 See_Comment [Aut omated message] The Basophils) system which ge nerated this result tra nsmitted reference range : <=1.0. The reference r carlos was not used to int erpret this result as normal/abnormal . [place] 045033-04-18 11:57:00 Test Item Value Reference Range Interpretation Comments Neutrophils # (test code = Neutrophils 7.1 1.5-8.1 #) [facility] HospitalSniumweFLEOZBAFKS5880-01-90 11:57:00 Test Item Value Reference Range Interpretation Comments Lymphocytes # (test code = Lymphocytes 1.7 1.0-5.5 #) [place] 045033-04-18 11:57:00 Test Item Value Reference Range Interpretation Comments Monocytes # (test code 0.5 See_Comment [Aut omated message] The = Monocytes #) system which generated this result tra nsmitted reference range : <=0.8. The reference r carlos was not used to int erpret this result as normal/abnormal . [facility]DkxakcaXRYGEMFRGX5134-40-69 11:57:00 Test Item Value Reference Range Interpretation Comments Eosinophils # (test code 0.2 See_Comment [A utomated message] The = Eosinophils #) system whic h generated this result tra nsmitted reference range : <=0.5. The reference r carlos was not used to int erpret this result as normal/abnormal . [facility] CenterSwmloplWOTYPLZUXM6927-22-04 11:57:00 Test Item Value Reference Range Interpretation Comments Basophils # (test code 0.1 See_Comment [Aut omated message] The = Basophils #) system which generated this result tra nsmitted reference range : <=0.2. The reference r carlos was not used to int erpret this result as normal/abnormal . [facility] HospitalEfxwsspDHLITIMHEW9878-90-18 11:57:00 Test Item Value Reference Range Interpretation Comments PT (test code = PT) 13.4 s 12.0-14.7 [place] 045033-04-18 11:57:00 Test Item Value Reference Range Interpretation Comments INR (test code = INR) 1.02 1 0.85-1.17 [place] [address]-04-18 11:57:00 Test Item Value Reference Range Interpretation Comments PTT (test code = PTT) 29.2 s 22.9-35.8 [place] [address]-04-18 11:57:00 Test Item Value Reference Range Interpretation Comments WBC (test code = WBC) 9.6 3.7-10.4 [place] [address]-04-18 11:57:00 Test Item Value Reference Range Interpretation Comments RBC (test code = RBC) 3.28 4.70-6.10 [place] [address]-04-18 11:57:00 Test Item Value Reference Range Interpretation Comments Hgb (test code = Hgb) 10.3 14.0-18.0 [place] [address]-04-18 11:57:00 Test Item Value Reference Range Interpretation Comments Hct (test code = Hct) 31.9 42.0-54.[address] [facility] HospitalVzhegycSOOYRMNUEC1469-01-01 11:57:00 Test Item Value Reference Range Interpretation Comments MCV (test code = MCV) 97.3 80.0-94.0 [place] 045033-04-18 11:57:00 Test Item Value Reference Range Interpretation Comments MCH (test code = MCH) 31.3 pg 27.0-31.[address] [facility] HospitalMrwjifvMVRULHFXLP1554-95-27 11:57:00 Test Item Value Reference Range Interpretation Comments MCHC (test code = MCHC) 32.2 32.0-36.[address] [facility] HospitalRvezyyvKOMLGZUNAL1951-54-17 11:57:00 Test Item Value Reference Range Interpretation Comments RDW (test code = RDW) 16.6 11.5-14.5 [place] 045033-04-18 11:57:00 Test Item Value Reference Range Interpretation Comments Platelet (test code = Platelet) 209 133-[address] [facility] HospitalJgtdheiNGNTHIGVUS8173-77-55 11:57:00 Test Item Value Reference Range Interpretation Comments MPV (test code = MPV) 8.7 7.4-10.4 [facility]aruUWUAUAIBZS3243-22-17 11:57:00 Test Item Value Reference Range Interpretation Comments Glutam Acid Ab (test code = Glutam Acid no gt Ab) [facility] TylerPveynfuVFMNWWOXTC5847-93-42 11:57:00 Test Item Value Reference Range Interpretation Comments Hep Bs Ab (test code = Hep Bs Ab) no gt [facility] TylerFpoivapFWBKJBGLCL6159-38-50 11:57:00 Test Item Value Reference Range Interpretation Comments Hep Bs Ag (test code Negative *NA*(06/17/22 = Hep Bs Ag) 6:57 AM) [facility] TylerZdwvxixMUHDXTIQNV0516-42-05 11:57:00 Test Item Value Reference Range Interpretation Comments Hep C Ab (test code = Negative *NA*(06/17/22 Hep C Ab) 6:57 AM) [facility] TylerKlckpytFFEAQJWWTN0709-09-08 11:57:00 Test Item Value Reference Range Interpretation Comments HIV Ag/Ab 4th Gen Negative *NA*(06/17/22 (test code = HIV 6:57 AM) Ag/Ab 4th Gen) [facility] TylerOlzpsawWWTVNOJPOA2314-78-72 11:57:00 Test Item Value Reference Range Interpretation Comments CMV IgG (test code = CMV IgG) no gt [facility] TylerFffxlmyFLROEWCHLR6019-14-73 11:57:00 Test Item Value Reference Range Interpretation Comments EBV VCA IgG (test code = EBV VCA IgG) 213.00 [place] [address]-04-18 11:57:00 Test Item Value Reference Range Interpretation Comments Hep A Tot (test code = Hep A Tot) REACTIVE [place] [address]-04-18 11:57:00 Test Item Value Reference Range Interpretation Comments HSV 1 IgG (test code = HSV 1 IgG) 22.60 [place] [address]-04-18 11:57:00 Test Item Value Reference Range Interpretation Comments HSV 2 IgG (test code = HSV 2 IgG) no gt [place] [address]-04-18 11:57:00 Test Item Value Reference Range Interpretation Comments T-Spot.TB (test code = T-Spot.TB) Negative [address]04-18 11:57:00 Test Item Value Reference Range Interpretation Comments T-Spot Pnl A Neg Ctrl Corrected (test 0 1 code = T-Spot Pnl A Neg Ctrl Corrected) [address]04-18 11:57:00 Test Item Value Reference Range Interpretation Comments T-Spot Pnl B Neg Ctrl Corrected (test 0 1 code = T-Spot Pnl B Neg Ctrl Corrected) [address]04-18 11:57:00 Test Item Value Reference Range Interpretation Comments T-Spot Neg Ctrl (test code = T-Spot Passed Neg Ctrl) [address]04-18 11:57:00 Test Item Value Reference Range Interpretation Comments T-Spot Pos Ctrl (test code = T-Spot Passed Pos Ctrl) [address]04-18 11:57:00 Test Item Value Reference Range Interpretation Comments Treponemal Ab (test code Non-Reactive = Treponemal Ab) *NA*(06/17/22 6:57 AM) [address]04-18 11:57:00 Test Item Value Reference Range Interpretation Comments Varicella IgG (test code = Varicella 912.50 IgG) [place] [address]-04-18 11:57:00 Test Item Value Reference Range Interpretation Comments Mumps IgG (test code = Mumps IgG) no gt [place] [address]-04-18 11:57:00 Test Item Value Reference Range Interpretation Comments Rubella IgG (test code = Rubella IgG) no gt [facility]enIdofjlkWXUKOBSPWP4191-71-84 11:57:00 Test Item Value Reference Range Interpretation Comments Rubeola IgG (test code = Rubeola IgG) 174.00 [facility] DBQDUJU1880-06-40 11:57:00 Test Item Value Reference Range Interpretation Comments Misc Quest (test code = Misc Quest) REPORT [facility] BOKCDXY7968-98-49 11:57:00 Test Item Value Reference Range Interpretation Comments Titer (test code = Titer) 64 1 [facility] HGNXHQG7101-97-66 11:57:00 Test Item Value Reference Range Interpretation Comments Antibody Titered (test code = Anti-A1 Antibody Titered) [facility] BGIIHVW3980-16-21 11:57:00 Test Item Value Reference Range Interpretation Comments Titer2 (test code = Titer2) 32 1 [facility] FHNELCK5827-34-57 11:57:00 Test Item Value Reference Range Interpretation Comments Antibody Titered2 (test code = Anti-B Antibody Titered2) [facility] VJAFSHZ6942-56-22 11:57:00 Test Item Value Reference Range Interpretation Comments OP ABORh Int (test code = OP ABORh Int) O POS [facility] BPNWJBG6813-72-85 11:57:00 Test Item Value Reference Range Interpretation Comments OP ABSC Gel Interp Negative (06/17/22 6:57 (test code = OP ABSC AM) Gel Interp) [facility] CampusHqtxojdRNZPJJXDW2976-59-12 11:57:00 Test Item Value Reference Range Interpretation Comments Glucose Lvl (test code = Glucose Lvl) 95 70-99 [facility] CampusMubqlwmSDZSBMZPE2771-39-16 11:57:00 Test Item Value Reference Range Interpretation Comments BUN (test code = BUN) 60 7-22 [facility] CampusChaebfjQEDBWJHGB4011-94-12 11:57:00 Test Item Value Reference Range Interpretation Comments Creatinine Lvl (test code = Creatinine 6.84 0.50-1.40 Lvl) [facility] CampusDpulibjNKGWZUBVX1950-92-45 11:57:00 Test Item Value Reference Range Interpretation Comments Sodium Lvl (test code = Sodium Lvl) 141 135-145 [facility] CenterVotcqhxWHGTSLQWT0634-67-72 11:57:00 Test Item Value Reference Range Interpretation Comments Potassium Lvl (test code = Potassium 3.8 3.5-5.1 Lvl) [place] [address]-04-18 11:57:00 Test Item Value Reference Range Interpretation Comments Chloride Lvl (test code = Chloride Lvl) 109 95-109 [facility]enYzltbjjAOQXZXUOQ0683-19-01 11:57:00 Test Item Value Reference Range Interpretation Comments CO2 (test code = CO2) 24 24-32 [facility]enOuqwwxiWVNTVDETH1126-21-82 11:57:00 Test Item Value Reference Range Interpretation Comments Calcium Lvl (test code = Calcium Lvl) 8.6 8.5-10.5 [facility]enNxifpnfFJDVDJVLO3665-01-10 11:57:00 Test Item Value Reference Range Interpretation Comments Total Protein (test code = Total 6.6 6.4-8.4 Protein) [facility] CampusPaubrowYTPJMAYDM9762-84-67 11:57:00 Test Item Value Reference Range Interpretation Comments Albumin Lvl (test code = Albumin Lvl) 3.3 3.5-5.0 [facility]enFlzutpkVDKDWGQLU0154-06-75 11:57:00 Test Item Value Reference Range Interpretation Comments ALT (test code = ALT) 11 See_Comment [Auto mated message] The system which ge nerated this result transmit nicko reference range : <=65. The reference range was not used to interpr et this result as adebayo l/abnormal. [facility]allenRmmeqoqZHTYVMJFM8018-74-76 11:57:00 Test Item Value Reference Range Interpretation Comments AST (test code = AST) 7 See_Comment [Auto mated message] The system which ge nerated this result transmit nicko reference range : <=37. The reference range was not used to interpr et this result as adebayo l/abnormal. [facility] McallenJwfaeigSSHQBKANK5168-93-98 11:57:00 Test Item Value Reference Range Interpretation Comments Alk Phos (test code = Alk Phos) 48 39-136 [place] 143813-04-18 11:57:00 Test Item Value Reference Range Interpretation Comments Bili Total (test code = Bili Total) 0.4 0.2-1.3 [facility] Mc[facility]enCtjrgscXXJHKDEDZ3523-57-06 11:57:00 Test Item Value Reference Range Interpretation Comments AGAP (test code = AGAP) 11.8 10.0-20.0 [facility] CampusLkhfwrjIMBRAQISX0435-57-45 11:57:00 Test Item Value Reference Range Interpretation Comments B/C Ratio (test code = B/C Ratio) 9 1 6-25 [facility] CampusOewhwsfPUQHLKYTJ9616-22-94 11:57:00 Test Item Value Reference Range Interpretation Comments Globulin (test code = Globulin) 3.3 2.7-4.2 [facility] CampusCexouclXIQGDIOEW1402-80-43 11:57:00 Test Item Value Reference Range Interpretation Comments A/G Ratio (test code = A/G Ratio) 1.0 1 0.7-1.6 [place] [address]-04-18 11:57:00 Test Item Value Reference Range Interpretation Comments eGFR (test code = eGFR) 8 [facility] CampusEdziuixQDRHYXPVF9159-17-31 11:57:00 Test Item Value Reference Range Interpretation Comments Bili Total (test code = Bili Total) 0.4 0.2-1.3 [facility] CampusRnnjojfCKWUTJLZR6746-45-58 11:57:00 Test Item Value Reference Range Interpretation Comments Bili Direct (test code 0.1 See_Comment [Aut omated message] The = Bili Direct) system which generated this result tra nsmitted reference range : <=0.3. The reference r carlos was not used to int erpret this result as adebayo l/abnormal. [facility] CampusKyytdveABSFIJFDU2450-57-49 11:57:00 Test Item Value Reference Range Interpretation Comments Bili Indirect (test 0.3 See_Comment [Automa nicko message] The code = Bili Indirect) system which generated this result tra nsmitted reference range : <=1.0. The reference r carlos was not used to int erpret this result as normal/abnormal . [facility] CampusNaerwfuKIKCQHCHB4381-96-35 11:57:00 Test Item Value Reference Range Interpretation Comments C-Peptide (test code = C-Peptide) 10.96 0.80-3.85 [facility] CampusUdwbqwsHAXUECHWW4535-02-25 11:57:00 Test Item Value Reference Range Interpretation Comments Nicotine Lvl (test code = Nicotine Lvl) no gt [facility] CampusGicnchiYAVYDEXJG2415-46-08 11:57:00 Test Item Value Reference Range Interpretation Comments Cotinine Lvl (test code = Cotinine Lvl) no gt [facility] CampusKtfaphlDWQVMOKCX7489-94-23 11:57:00 Test Item Value Reference Range Interpretation Comments Hgb A1C (test code = Hgb A1C) 5.3 [facility] CampusJzdkvadGAOEHWSAY2955-84-40 11:57:00 Test Item Value Reference Range Interpretation Comments Trig (test code = Trig) 55 [facility] CampusPlguzdjZJBHADZNU6883-71-46 11:57:00 Test Item Value Reference Range Interpretation Comments Chol (test code = Chol) 88 [facility] CampusPabbjltCKAATOMLQ3269-19-25 11:57:00 Test Item Value Reference Range Interpretation Comments HDL (test code = HDL) 37 [facility] CampusZmbkuiiOUQPKFEAY1436-66-73 11:57:00 Test Item Value Reference Range Interpretation Comments Chol/HDL Ratio (test code = Chol/HDL 2.38 1 4.00-7.30 Ratio) [facility] CampusXlasemiPVUMMXNGR2259-73-94 11:57:00 Test Item Value Reference Range Interpretation Comments LDL (Calculated) (test code = LDL 40 (Calculated)) [facility] CampusZxinijhUMDRJWQYM8859-51-51 11:57:00 Test Item Value Reference Range Interpretation Comments VLDL (test code = VLDL) 11 1 [facility] CampusTyscgriPTJBGMLSQ3690-14-47 11:57:00 Test Item Value Reference Range Interpretation Comments Phosphorus (test code = Phosphorus) 6.5 2.5-4.5 [facility] CampusHgqjmllISLAFLBBZ8727-69-16 11:57:00 Test Item Value Reference Range Interpretation Comments PSA (test code = PSA) 1.12 [facility] CampusYtcenguHHJUFKLRJ0021-45-89 11:57:00 Test Item Value Reference Range Interpretation Comments LDH (test code = LDH) 137 98-[address] [facility] HospitalNriomawLWNJOYLNAC6885-91-77 11:57:00 Test Item Value Reference Range Interpretation Comments Segs (test code = Segs) 74.6 45.0-75.0 [facility]ThtmwlzXJJARKIRSY0660-33-80 11:57:00 Test Item Value Reference Range Interpretation Comments Lymphocytes (test code = Lymphocytes) 17.8 20.0-40.0 [facility] RegionTgqvcbpJJQSPGCVBU1674-33-52 11:57:00 Test Item Value Reference Range Interpretation Comments Monocytes (test code = Monocytes) 5.4 2.0-12.0 [facility] RegionEgcntnzKZZKIQJRZG2950-63-18 11:57:00 Test Item Value Reference Range Interpretation Comments Eosinophils (test code = 1.6 See_Comment [A utomated message] The Eosinophils) system which ge nerated this result tra nsmitted reference range : <=4.0. The reference r carlos was not used to int erpret this result as normal/abnormal . [place] [address]-04-18 11:57:00 Test Item Value Reference Range Interpretation Comments Basophils (test code = 0.6 See_Comment [Aut omated message] The Basophils) system which ge nerated this result tra nsmitted reference range : <=1.0. The reference r carlos was not used to int erpret this result as normal/abnormal . [place] [address]-04-18 11:57:00 Test Item Value Reference Range Interpretation Comments Neutrophils # (test code = Neutrophils 7.1 1.5-8.1 #) [place] [address]-04-18 11:57:00 Test Item Value Reference Range Interpretation Comments Lymphocytes # (test code = Lymphocytes 1.7 1.0-5.5 #) [place] [address]-04-18 11:57:00 Test Item Value Reference Range Interpretation Comments Monocytes # (test code 0.5 See_Comment [Aut omated message] The = Monocytes #) system which generated this result tra nsmitted reference range : <=0.8. The reference r carlos was not used to int erpret this result as normal/abnormal . [facility] HospitalLkshxuuQFNTMJZPIH5175-10-93 11:57:00 Test Item Value Reference Range Interpretation Comments Eosinophils # (test code 0.2 See_Comment [A utomated message] The = Eosinophils #) system whic h generated this result tra nsmitted reference range : <=0.5. The reference r carlos was not used to int erpret this result as normal/abnormal . [place] [address]-04-18 11:57:00 Test Item Value Reference Range Interpretation Comments Basophils # (test code 0.1 See_Comment [Aut omated message] The = Basophils #) system which generated this result tra nsmitted reference range : <=0.2. The reference r carlso was not used to int erpret this result as normal/abnormal . [place] [address]-04-18 11:57:00 Test Item Value Reference Range Interpretation Comments PT (test code = PT) 13.4 s 12.0-14.[address] [facility] HospitalCttaqrzPJBNUQVXWI1985-20-84 11:57:00 Test Item Value Reference Range Interpretation Comments INR (test code = INR) 1.02 1 0.85-1.17 [place] [address]-04-18 11:57:00 Test Item Value Reference Range Interpretation Comments PTT (test code = PTT) 29.2 s 22.9-35.8 [place] [address]-04-18 11:57:00 Test Item Value Reference Range Interpretation Comments WBC (test code = WBC) 9.6 3.7-10.4 [place] 045033-04-18 11:57:00 Test Item Value Reference Range Interpretation Comments RBC (test code = RBC) 3.28 4.70-6.10 [place] [address]-04-18 11:57:00 Test Item Value Reference Range Interpretation Comments Hgb (test code = Hgb) 10.3 14.0-18.0 [place] [address]-04-18 11:57:00 Test Item Value Reference Range Interpretation Comments Hct (test code = Hct) 31.9 42.0-54.[address] [facility] HospitalVduzshpMIAXUILJPN2846-38-73 11:57:00 Test Item Value Reference Range Interpretation Comments MCV (test code = MCV) 97.3 80.0-94.[address] [facility] HospitalTkiohyiVTHWTBMAGV8332-20-09 11:57:00 Test Item Value Reference Range Interpretation Comments MCH (test code = MCH) 31.3 pg 27.0-31.0 [place] 045033-04-18 11:57:00 Test Item Value Reference Range Interpretation Comments MCHC (test code = MCHC) 32.2 32.0-36.0 [place] [address]-04-18 11:57:00 Test Item Value Reference Range Interpretation Comments RDW (test code = RDW) 16.6 11.5-14.5 [place] [address]-04-18 11:57:00 Test Item Value Reference Range Interpretation Comments Platelet (test code = Platelet) 209 133-450 [place] 045033-04-18 11:57:00 Test Item Value Reference Range Interpretation Comments MPV (test code = MPV) 8.7 7.4-10.4 [facility]TlfivajYSFEWLNLXH0867-91-98 11:57:00 Test Item Value Reference Range Interpretation Comments Glutam Acid Ab (test code = Glutam Acid no gt Ab) [facility] TylerUsdmpmuTLLPIOULGF9217-65-50 11:57:00 Test Item Value Reference Range Interpretation Comments Hep Bs Ab (test code = Hep Bs Ab) no gt [facility] TylerTwqyybjGCWUJJAKGD9220-11-55 11:57:00 Test Item Value Reference Range Interpretation Comments Hep Bs Ag (test code Negative *NA*(06/17/22 = Hep Bs Ag) 6:57 AM) [facility]PemkxiyLSHFOKDXKJ3176-02-22 11:57:00 Test Item Value Reference Range Interpretation Comments Hep C Ab (test code = Negative *NA*(06/17/22 Hep C Ab) 6:57 AM) [facility] TylerZlkfpwqRIHJEBIEYX3799-00-36 11:57:00 Test Item Value Reference Range Interpretation Comments HIV Ag/Ab 4th Gen Negative *NA*(06/17/22 (test code = HIV 6:57 AM) Ag/Ab 4th Gen) [facility] TylerNynkmtwVBQGDGKBEG7700-99-92 11:57:00 Test Item Value Reference Range Interpretation Comments CMV IgG (test code = CMV IgG) no gt [facility] TylerRgixcfrODMGWELGEC6954-35-67 11:57:00 Test Item Value Reference Range Interpretation Comments EBV VCA IgG (test code = EBV VCA IgG) 213.00 [facility] TylerVbimftbCMHXOHOULX1033-85-01 11:57:00 Test Item Value Reference Range Interpretation Comments Hep A Tot (test code = Hep A Tot) [facility]ACTIVE [facility] TylerPapcqhfLXMBSAIRKK3326-16-70 11:57:00 Test Item Value Reference Range Interpretation Comments HSV 1 IgG (test code = HSV 1 IgG) 22.60 [facility] TylerAvjjqftWUXIWUXAEZ2209-01-08 11:57:00 Test Item Value Reference Range Interpretation Comments HSV 2 IgG (test code = HSV 2 IgG) no gt [facility] TylerSyjxrnkVNHIWXPTND6047-84-19 11:57:00 Test Item Value Reference Range Interpretation Comments T-Spot.TB (test code = T-Spot.TB) Negative [facility] TylerIntamhcYMSHNYLSDZ8393-78-20 11:57:00 Test Item Value Reference Range Interpretation Comments T-Spot Pnl A Neg Ctrl Corrected (test 0 1 code = T-Spot Pnl A Neg Ctrl Corrected) [address]04-18 11:57:00 Test Item Value Reference Range Interpretation Comments T-Spot Pnl B Neg Ctrl Corrected (test 0 1 code = T-Spot Pnl B Neg Ctrl Corrected) [facility]enXksxcksXDJZOPWCIZ2821-32-92 11:57:00 Test Item Value Reference Range Interpretation Comments T-Spot Neg Ctrl (test code = T-Spot Passed Neg Ctrl) [facility] Mc[facility]enXwzkrysGYSSMCMHYR1082-60-72 11:57:00 Test Item Value Reference Range Interpretation Comments T-Spot Pos Ctrl (test code = T-Spot Passed Pos Ctrl) [facility]GbvwjtwOCTYMIOMKH0431-28-95 11:57:00 Test Item Value Reference Range Interpretation Comments Treponemal Ab (test code Non-Reactive = Treponemal Ab) *NA*(06/17/22 6:57 AM) [facility] McallenVaozbadXZWZNKOTRE7644-68-84 11:57:00 Test Item Value Reference Range Interpretation Comments Varicella IgG (test code = Varicella 912.50 IgG) [facility] CenterBkldyhyNTSBGUQPUA6732-17-19 11:57:00 Test Item Value Reference Range Interpretation Comments Mumps IgG (test code = Mumps IgG) no gt [facility]enAbykwhxGZDEZFJVEJ8906-87-32 11:57:00 Test Item Value Reference Range Interpretation Comments Rubella IgG (test code = Rubella IgG) no [facility] MichiganWazuafkQUBWZUCNCX5785-61-09 11:57:00 Test Item Value Reference Range Interpretation Comments Rubeola IgG (test code = Rubeola IgG) 174.00 [facility]REF[facility] UWSFCAU7198-19-00 11:57:00 Test Item Value Reference Range Interpretation Comments Misc Quest (test code = Misc Quest) REPORT [facility] CenterVitamin D 25 qkddksb9885-01-28 14:00:00 Test Item Value Reference Range Interpretation Comments VITAMIN 41 ng/mL 30-100 Vitamin D Statu s ? D,25-OH,TOTAL,I ? ? ? 25-OH Vitamin A (test code = D: Deficiency : ? ? 1988-04) ? <20 ng/mLInsufficie ncy: ? 20 - 29 ng/mLOptimal: ? > or = 30 ng/mL For 25-OH Vitamin D testi ng on patients on D2-supplementat ion and patients fo r whom quantitati on of D2 and D3 fractions is required, the QuestAssureD(TM )25- OH VIT D, (D2,D 3), LC/MS/MS is recommended: or darek code 55295 (patients >2yrs).See Note 1 Note 1 For additional information, pl ease refer to http://educatio Webmedx/ faq/WDM612 (Thi s link is being provided for informational/e duca tional purposes only.) RAC (test code Performing = RAC) Organization Information: ? ?Site ID: [id number] ? ?Name: [facility] ? ?Address: [address] [place] [id number] ? ?Director: ALBINA LEROY MD [facility], total and kajd8816-89-32 14:00:00 Test Item Value Reference Interpretation Comments Range PSA, TOTAL (test 8.3 ng/mL See_Comment H [Automated message] code = 2857-1) The system [employer] generated this result transmitted ref erence range: < OR = 4 .0. The reference range was not used to int erpret this result as normal/abnormal . PSA, FREE (test 3.2 ng/mL code = 03988-9) PSA, % FREE (test 39 See_Comment PSA(ng/mL ) ? ? ?Free code = 53785-0) PSA(%) ? ? Estimated(x) Probability ? of Cancer(as%)0-2. 5 ?(*) ? Approx. 12.6- 4.0(1) ? 0-27(2) ? 24(3)4.1-10(4) ?0-10 ?56 ? 11-15 ? 28 ? 16-20 ? 20 ? 21-25 ? 16 ? >or = 26 ? 8 >10(+) ? N/A ? >50 References:(1)Alok parsons al.:Urology 60: 469-474 (2002) ? (2)Maribel jimenez.:J.Urol 168: 922-925 (2001) ?Free PSA(% ) ? Sensitivity(%) ?Specificity(%) ?< or = 2 5 ?85 ?19 ?< or = 30 ?93 ? 9 ? (3)Maribel et al.:BETITO 277: 5320-7007 (1996 ) ? (4)Maribel et al.:BETITO 279: 1306-1018 (1997 ) (x)These estima wero vary with [...] ofdisea se. [Automated mess age] The system whic h generated this result transmitted ref erence range: >25 % (c alc). The reference r carlos was not used to interpret this result as normal/abnor mal. RAC (test code = Performing RAC) Organization Information: ? ?Site ID: IG ? ?Name: [facility] ? ?Address: [address] [place], [place] [address] [address] ? ?Director: ALBINA LEROY MD Lab Interpretation Abnormal (test code = 20703-6) [place] HealthTestosterone, free, ulkog0833-36-88 14:00:00 Test Item Value Reference Interpretation Comments Range TESTOSTERONE, 141 ng/dL 250-1100 L Men with clini get TOTAL, MS (test significant hypogonadal code = 2986-8) symptoms and testosterone valuesrepeatedl y in the range of the 20 0-300 ng/dL or less, may be nefit fromtestosteron e treatment after adequate risk and benefits counse ling. For additional info rmation, please refer [email or web address] [email or web address](This link is being p rovided for informational/e ducational purposes only.) (Note) This test was develo ped and its analytical performancechar acteristics have been deter mined by [facility]. It h as notbeen cleared or appr eduardo by the FDA. This assay has been validatedpursua nt to the CLIA regulation s and is used for clinical pu rposes. TESTOSTERONE, 25.4 pg/mL 35.0-155.0 L (Note)This wero t was FREE (test code = developed and its analytical 2991-8) performance mendez racteristics have been deter mined by [facility]. It h as not been cleared or appr eduardo by the FDA. This assay has been validated pursu ant to the CLIA regulation s and is used for clinical pu rposes. MDFmed luhszz29 [facility] 1 ,[address] [phone] 00Bakari Donovan MD REPO RT COMMENT:FASTING :NO RAC (test code = Performing RAC) Organization Information: ? ?Site ID: [id number] ? ?Name: [employer] ? ?Address: [address] [place] [address] [place] [phone] ? ?Director: BAKARI DONOVNA MD Lab Abnormal Interpretation (test code = 26331-3) [place] HealthUrine [id number] 06:00:00 Test Item Value Reference Range Interpretation Comments CULTURE, URINE, SEE NOTE ?CULTURE, U RINE, ROUTINE (test ROUTINE ? ?Rock ro code = Number: ? ? [id number]) ?[id number] ?Test Status: ? ? ? Final ?Specimen Source: ? Urine ?Specimen Quality: ?Adequate ?Result: ?No Growth RAC (test code = Performing RAC) Organization Information: ? ?Site ID: RGA ? ?Name: [facility] ? ?Address: [address] [place] [address] ? ?Director: ALBINA LEROY MD [place] HealthTestosterone, free, [id number] 06:00:00 Test Item Value Reference Range Interpretation Comments TESTOSTERONE, NOT DONE ng/dL TEST NOT PERFO RMED TOTAL, MS Duplicate test. (test code = 2986-8) RAC (test code Performing = RAC) Organization Information: ? ?Site ID: [id number] ? ?Name: [facility] ? ?Address: [address] [place] [address] [place] [phone] ? ?Director: BAKRAI DONOVAN MD [place] HealthPSA, total and [id number] 06:00:00 Test Item Value Reference Range Interpretation Comments PSA, TOTAL NOT DONE ng/mL TEST NOT PERFOR MED No (test code = suitable specim en 2857-1) received.Please review the testrequire ments at [facility] RAC (test Performing code = RAC) Organization Information: ? ?Site ID: IG ? ?Name[facility] ? ?Address: [address] [place] [phone] ? ?Director: ALBINA LEROY MD [place] HealthVitamin D 25 [id number] 06:00:00 Test Item Value Reference Range Interpretation Comments VITAMIN NOT DONE ng/mL TEST NOT D,25-OH,TOTAL,IA PERFORMED (test code = Duplicate test. 1988-04) RAC (test code = Performing RAC) Organization Information: ? ?Site ID: RGA ? ?Name: [facility] ? ?Address: [address] [place] [phone] ? ?Director: ALBINA LEROY MD [place] HealthPOCT urinalysis w/o [id number] 23:16:00 Test Item Value Reference Range Interpretation Comments Color, UA (test code = Yello w 4210972) Clarity, UA (test code Clear = 5398829) Glucose, UA (test code Negative Negative = 2036069) Bilirubin, UA (test Negative Negative code = 8277290) Ketones, UA (test code Negat nargis = 4312374) Spec Grav, UA (test 1.015 1.000-1.030 code = 1004017) Blood, UA (test code = Small 1121349) pH, UA (test code = 7.0 5.0-8.5 2347053) Protein, UA (test code 100(2+)mg/dL Negative, Trace, A = 2464852) 200(+2)mg/dL, 15/mg/dL Urobilinogen, UA (test 0.2 See_Comment [Aut omated code = 3052029) message] The system which generated this result transmit nicko reference range : 0.2. The refere nce range was not u sed to interpret th is result as normal/abnormal . Leukocytes, UA (test Small Negative, Trace A code = 0548143) Nitrite, UA (test code Negative Negative, Trace = 1282528) Appearance, Fluid Clear (test code = 9335-1) Lab Interpretation Abnormal (test code = 11959-3) [place] HealthURINALYSIS WITH [id number] 22:24:00 Test Item Value Reference Range Interpretation Comments Color (test code = Lt. Yellow UCOLR) Clarity (test code Clear = UCLAR) Glucose (test code NEGATIVE NEGATIVE N = UGLUC) Bilirubin (test NEGATIVE NEGATIVE N code = UBILI) Ketones (test code NEGATIVE NEGATIVE N = UKET) Specific [place] 1.010 1.005-1.030 A (test code = USPGR) [...] = Amorphous URCRYS) Phosphates STLMLCT HEAD W/O [id number] 21:17:42 [facility] ([facility])Name: ZENIA JIMENES : 1955 Sex: MDISCUSSION:CT HEADCLINICAL [...] 04/29/2022 21:13Dictated By: SHREE WRIGHTDate: 04/29/2022 21:17 [id number] 21:12:00 Test Item Value Reference Range Interpretation [...] ( 4 - SerumAlbumin)] EGFR if 5 [place] (test code mL/min/1.73m\\ = EGFRAA) S\\2 EGFR if Non- [address] [place] (test code mL/min/1.73m\\ Filtrat ion Rate (eGFR) [...] TSH) 7.72 mIU/L 0.47-4.68 H STLMLHIGH SENSITIVITY [id number] 21:01:00 Test Item Value Reference Range Interpretation [...] equal to 500 ng/L. STLMLCBC WITH AUTO [id number] 20:49:00 Test Item Value Reference Range Interpretation [...] = 0.3 % 0.0-0.4 IG%) STLMLURINALYSIS WITH [id number] 21:33:00 Test Item Value Reference Range Interpretation Comments Color (test code = Yellow UCOLR) Clarity (test code = Clear UCLAR) Glucose (test code = 100 NEGATIVE A UGLUC) Bilirubin (test code = NEGATIVE NEGATIVE N UBILI) Ketones (test code = NEGATIVE NEGATIVE N UKET) Specific [place] (test 1.010 1.005-1.030 A code = USPGR) Blood (test code = MODERATE NEGATIVE A UBLD) PH (test code = UPH) 7.0 4.5-8.0 A Protein (test code = 100 NEGATIVE A UPROT) Urobilinogen (test 0.2 See_Comment N [Automat ed message] code = U UROB) The system [facility] generated this result transmit nicko reference range [...] Seen None Seen N = UR MISC) [facility]O [id number] 20:40:44 [facility] ([facility])Name: ZENIA JIMENES : 1955 Sex: MEXAM: CT ABDOMEN/PELVIS W/O CONTRASTHISTORY: [id number]: Abdominal pain.TECHNIQUE: Axial CT images acquired through [...] (test code = LIPA) 90 U/L 8-223 [id number] 20:16:00 Test Item Value Reference Range Interpretation [...] ( 4 - SerumAlbumin)] EGFR if 7 [place] (test code mL/min/1.73m\\ = EGFRAA) S\\2 EGFR if Non- 6 [address] Glomerular [place] (test code mL/min/1.73m\\ Filtrat ion Rate (eGFR) [...] c hronic kidney failure. STLMLCBC WITH AUTO [id number] 19:50:00 Test Item Value Reference Range Interpretation [...] 0.3 % 0.0-0.4 IG%) STLMLPOCT urinalysis w/o [id number] 22:11:00 Test Item Value Reference Range Interpretation Comments Color, UA (test code = Yello w 7509052) Clarity, UA (test code Clear = 7699015) Glucose, UA (test code 100 mg/dL Negative A = 1341469) Bilirubin, UA (test Negative Negative code = 4541748) Ketones, UA (test code Negat nargis = 1470544) Spec Grav, UA (test 1.000-1.030 code = 5205665) Blood, UA (test code = Trace 5227311) pH, UA (test code = 5.0-8.5 3004525) Protein, UA (test code 30(+1) mg/dL Negative, Trace, A = 5285340) 200(+2)mg/dL, 15/mg/dL Urobilinogen, UA (test See_Comment [Aut omated code = 1592330) message] The system which generated this result transmit nicko reference range : 0.2. The refere nce range was not u sed to interpret th is result as normal/abnormal . Leukocytes, UA (test Trace Negative, Trace code = 1215998) Nitrite, UA (test code Negative Negative, Trace = 0068266) Appearance, Fluid Clear (test code = 9335-1) Lab Interpretation Abnormal (test code = 73756-8) [id number] 15:33:00 Test Item Value Reference Range Interpretation Comments T-Spot.TB (test code = T-Spot.TB) Negative [facility]ON[facility]CF[facility]KN5660[facility]80-11 15:33:00 Test Item Value Reference Range Interpretation Comments T-Spot Pnl A Neg Ctrl Corrected (test 0 1 code = T-Spot Pnl A Neg Ctrl Corrected) [facility]aakKSDYLSZNDJ7761[facility] 15:33:00 Test Item Value Reference Range Interpretation Comments T-Spot Pnl B Neg Ctrl Corrected (test 0 1 code = T-Spot Pnl B Neg Ctrl Corrected) [facility] TylerHgorblaUTNPZSORTK2710-72-23 15:33:00 Test Item Value Reference Range Interpretation Comments T-Spot Neg Ctrl (test code = T-Spot Passed Neg Ctrl) [place] [address]-05-03 15:33:00 Test Item Value Reference Range Interpretation Comments T-Spot Pos Ctrl (test code = T-Spot Passed Pos Ctrl) [facility] TylerXagvnmmRXDTOXNZTA2102-29-75 15:33:00 Test Item Value Reference Range Interpretation Comments T-Spot.TB (test code = T-Spot.TB) Negative [place] [address]-05-03 15:33:00 Test Item Value Reference Range Interpretation Comments T-Spot Pnl A Neg Ctrl Corrected (test 0 1 code = T-Spot Pnl A Neg Ctrl Corrected) [address]05-03 15:33:00 Test Item Value Reference Range Interpretation Comments T-Spot Pnl B Neg Ctrl Corrected (test 0 1 code = T-Spot Pnl B Neg Ctrl Corrected) [place] [address]-05-03 15:33:00 Test Item Value Reference Range Interpretation Comments T-Spot Neg Ctrl (test code = T-Spot Passed Neg Ctrl) [facility] TylerSmxtledFRFJKXFUNA2398-46-11 15:33:00 Test Item Value Reference Range Interpretation Comments T-Spot Pos Ctrl (test code = T-Spot Passed Pos Ctrl) [place] [address]-05-03 15:33:00 Test Item Value Reference Range Interpretation Comments T-Spot.TB (test code = T-Spot.TB) Negative [place] [address]-05-03 15:33:00 Test Item Value Reference Range Interpretation Comments T-Spot Pnl A Neg Ctrl Corrected (test 0 1 code = T-Spot Pnl A Neg Ctrl Corrected) [place] [address]-05-03 15:33:00 Test Item Value Reference Range Interpretation Comments T-Spot Pnl B Neg Ctrl Corrected (test 0 1 code = T-Spot Pnl B Neg Ctrl Corrected) [place] [address]-05-03 15:33:00 Test Item Value Reference Range Interpretation Comments T-Spot Neg Ctrl (test code = T-Spot Passed Neg Ctrl) [place] [address]-05-03 15:33:00 Test Item Value Reference Range Interpretation Comments T-Spot Pos Ctrl (test code = T-Spot Passed Pos Ctrl) [place] [address]-05-03 15:33:00 Test Item Value Reference Range Interpretation Comments T-Spot.TB (test code = T-Spot.TB) Negative [facility] TylerYajltbpXWKLMYBIHT8465-24-86 15:33:00 Test Item Value Reference Range Interpretation Comments T-Spot Pnl A Neg Ctrl Corrected (test 0 1 code = T-Spot Pnl A Neg Ctrl Corrected) [facility] TylerWutpnguMVURJYUUHK2272-58-32 15:33:00 Test Item Value Reference Range Interpretation Comments T-Spot Pnl B Neg Ctrl Corrected (test 0 1 code = T-Spot Pnl B Neg Ctrl Corrected) [facility] TylerRycbdceNHUWAAODIG1737-00-10 15:33:00 Test Item Value Reference Range Interpretation Comments T-Spot Neg Ctrl (test code = T-Spot Passed Neg Ctrl) [facility] TylerCxeoruiECQJRBWPMK7620-34-75 15:33:00 Test Item Value Reference Range Interpretation Comments T-Spot Pos Ctrl (test code = T-Spot Passed Pos Ctrl) [facility] pathology [id number] 13:05:21 Test Item Value Reference Range Interpretation Comments Case number (test [id number] code = 5519573) Surgical pathology See link below for PDF report (test code = Lab Report 2255) Result status (test This is Supplemental code = 6690641) Report for [id number] [facility] pathology [id number] 13:05:21 Test Item Value Reference Range Interpretation Comments Case number (test [id number] code = 6538039) Surgical pathology See link below for PDF report (test code = Lab Report 2255) Result status (test This is Supplemental code = 4859779) Report for [id number] pathology [id number] 13:05:21 Test Item Value Reference Range Interpretation Comments Case number (test [id number] code = 9041408) Surgical pathology See link below for PDF report (test code = Lab Report 2255) Result status (test This is Supplemental code = 7722285) Report for [id number] pathology [id number] 13:05:21 Test Item Value Reference Range Interpretation Comments Case number (test [id number] code = 5705480) Surgical pathology See link below for PDF report (test code = Lab Report 2255) Result status (test This is Supplemental code = 4974335) Report for [id number] pathology [id number] 13:05:21 Test Item Value Reference Range Interpretation Comments Case number (test [id number] code = 4105820) Surgical pathology See link below for PDF report (test code = Lab Report 2255) Result status (test This is Supplemental code = 0239493) Report for [id number] pathology [id number] 13:05:21 Test Item Value Reference Range Interpretation Comments Case number (test [id number] code = 2555802) Surgical pathology See link below for PDF report (test code = Lab Report 2255) Result status (test This is Supplemental code = 8654362) Report for [id number] pathology [id number] 13:05:21 Test Item Value Reference Range Interpretation Comments Case number (test [id number] code = 3381785) Surgical pathology See link below for PDF report (test code = Lab Report 2255) Result status (test This is Supplemental code = 1664121) Report for [id number] pathology [id number] 13:05:21 Test Item Value Reference Range Interpretation Comments Case number (test [id number] code = 3939893) Surgical pathology See link below for PDF report (test code = Lab Report 2255) Result status (test This is Supplemental code = 8698669) Report for [id number] pathology [id number] 13:05:21 Test Item Value Reference Range Interpretation Comments Case number (test [id number] code = 3110593) Surgical pathology See link below for PDF report (test code = Lab Report 2255) Result status (test This is Supplemental code = 6548286) Report for [id number] pathology [id number] 13:05:21 Test Item Value Reference Range Interpretation Comments Case number (test [id number] code = 1786141) Surgical pathology See link below for PDF report (test code = Lab Report 2255) Result status (test This is Supplemental code = 1977858) Report for [id number] [id number] 14:19:00 Test Item Value Reference Range Interpretation Comments Anaerobic No anaerobic Specimen culture isolate organisms InformationS pecimen (test code = isolated. Source: Periton eal 24116-4) fluidSpecimen S ite: [facility]2022-03-27 14:19:00 Test Item Value Reference Range Interpretation Comments Anaerobic No anaerobic Specimen culture isolate organisms InformationS pecimen (test code = isolated. Source: [place] 98224-4) fluidSpecimen S ite: [facility]2022-03-27 14:19:00 Test Item Value Reference Range Interpretation Comments Anaerobic No anaerobic Specimen culture isolate organisms InformationS pecimen (test code = isolated. Source: Periton eal 67451-8) fluidSpecimen S ite: [facility]2022-03-27 14:19:00 Test Item Value Reference Range Interpretation Comments Anaerobic No anaerobic Specimen culture isolate organisms InformationS pecimen (test code = isolated. Source: Periton eal 45576-5) fluidSpecimen S ite: [facility]2022-03-27 14:19:00 Test Item Value Reference Range Interpretation Comments Anaerobic No anaerobic Specimen culture isolate organisms InformationS pecimen (test code = isolated. Source: Periton eal 47475-5) fluidSpecimen S ite: [facility]2022-03-27 14:19:00 Test Item Value Reference Range Interpretation Comments Anaerobic No anaerobic Specimen culture isolate organisms InformationS pecimen (test code = isolated. Source: Per[place] eal 71839-3) fluidSpecimen S ite: [facility]2022-03-27 14:19:00 Test Item Value Reference Range Interpretation Comments Anaerobic No anaerobic Specimen culture isolate organisms InformationS pecimen (test code = isolated. Source: Periton eal 60540-5) fluidSpecimen S ite: [facility]2022-03-27 14:19:00 Test Item Value Reference Range Interpretation Comments Anaerobic No anaerobic Specimen culture isolate organisms InformationS pecimen (test code = isolated. Source: Periton eal 66304-2) fluidSpecimen S ite: [facility] [id number] 14:19:00 Test Item Value Reference Range Interpretation Comments Anaerobic No anaerobic Specimen culture isolate organisms InformationS pecimen (test code = isolated. Source: Periton eal 98638-8) fluidSpecimen S ite: [facility] [id number] 14:19:00 Test Item Value Reference Range Interpretation Comments Anaerobic No anaerobic Specimen culture isolate organisms InformationS pecimen (test code = isolated. Source: Periton eal 29897-6) fluidSpecimen S ite: [facility] [id number] 18:24:00 Test Item Value Reference Range Interpretation Comments Aerobic culture No growth Specimen isolate (test after 3 days. InformationSp ecimen code = 91666-9) Source: Cris toneal fluidSpecimen S ite: [facility] [id number] 18:24:00 Test Item Value Reference Range Interpretation Comments Aerobic culture No growth Specimen isolate (test after 3 days. InformationSp ecimen code = 09427-1) Source: Cris toneal fluidSpecimen S ite: [facility] [id number] 18:24:00 Test Item Value Reference Range Interpretation Comments Aerobic culture No growth Specimen isolate (test after 3 days. InformationSp ecimen code = 27396-0) Source: Cris toneal fluidSpecimen S ite: [facility] [id number] 18:24:00 Test Item Value Reference Range Interpretation Comments Aerobic culture No growth Specimen isolate (test after 3 days. InformationSp ecimen code = 53652-5) Source: Cris toneal fluidSpecimen S ite: [facility] [id number] 18:24:00 Test Item Value Reference Range Interpretation Comments Aerobic culture No growth Specimen isolate (test after 3 days. InformationSp ecimen code = 17057-6) Source: Cris toneal fluidSpecimen S ite: [facility] [id number] 18:24:00 Test Item Value Reference Range Interpretation Comments Aerobic culture No growth Specimen isolate (test after 3 days. InformationSp ecimen code = 31948-1) Source: Cris toneal fluidSpecimen S ite: [facility] [id number] 18:24:00 Test Item Value Reference Range Interpretation Comments Aerobic culture No growth Specimen isolate (test after 3 days. InformationSp ecimen code = 15184-5) Source: Cris toneal fluidSpecimen S ite: [facility] [id number] 18:24:00 Test Item Value Reference Range Interpretation Comments Aerobic culture No growth Specimen isolate (test after 3 days. InformationSp ecimen code = 88240-3) Source: Cris toneal fluidSpecimen S ite: [facility] [id number] 18:24:00 Test Item Value Reference Range Interpretation Comments Aerobic culture No growth Specimen isolate (test after 3 days. InformationSp ecimen code = 69374-2) Source: Cris toneal fluidSpecimen S ite: [facility] [id number] 18:24:00 Test Item Value Reference Range Interpretation Comments Aerobic culture No growth Specimen isolate (test after 3 days. InformationSp ecimen code = 44790-7) Source: Cris toneal fluidSpecimen S ite[facility] [id number] 15:13:45 Test Item Value Reference Range Interpretation Comments Ventricular rate (test code = 253) Atrial rate (test code = 255) FL interval (test code = 266) QRSD interval [...] wave inversion now evident in Lateral leads- [address]2022-03-23 15:13:45 Test Item Value Reference Range Interpretation Comments Ventricular rate (test code = 253) Atrial rate (test code = 255) FL interval (test code = 266) QRSD interval [...] wave inversion now evident in Lateral leads- [address]2022-03-23 15:13:45 Test Item Value Reference Range Interpretation Comments Ventricular rate (test code = 253) Atrial rate (test code = 255) FL interval (test code = 266) QRSD interval [...] wave inversion now evident in Lateral leads- [address]2022-03-23 15:13:45 Test Item Value Reference Range Interpretation Comments Ventricular rate (test 86 code = 253) Atrial rate (test code 86 = 255) FL interval (test code 240 = 266) QRSD [...] wave inversion now evident in Lateral leads- [address]2022-03-23 15:13:45 Test Item Value Reference Range Interpretation Comments Ventricular rate (test 86 code = 253) Atrial rate (test code 86 = 255) FL interval (test code 240 = 266) QRSD [...] wave inversion now evident in Lateral leads- [address]2022-03-23 15:13:45 Test Item Value Reference Range Interpretation Comments Ventricular rate (test 86 code = 253) Atrial rate (test code 86 = 255) FL interval (test code 240 = 266) QRSD [...] wave inversion now evident in Lateral leads- [address]2022-03-23 15:13:45 Test Item Value Reference Range Interpretation Comments Ventricular rate (test 86 code = 253) Atrial rate (test code 86 = 255) FL interval (test code 240 = 266) QRSD [...] wave inversion now evident in Lateral leads- [address]2022-03-23 15:13:45 Test Item Value Reference Range Interpretation Comments Ventricular rate (test 86 code = 253) Atrial rate (test code 86 = 255) FL interval (test code 240 = 266) QRSD [...] wave inversion now evident in Lateral leads- [address]2022-03-23 15:13:45 Test Item Value Reference Range Interpretation Comments Ventricular rate (test 86 code = 253) Atrial rate (test code 86 = 255) FL interval (test code 240 = 266) QRSD [...] wave inversion now evident in Lateral leads- [address]2022-03-23 15:13:45 Test Item Value Reference Range Interpretation Comments Ventricular rate (test 86 code = 253) Atrial rate (test code 86 = 255) FL interval (test code 240 = 266) QRSD [...] wave inversion now evident in Lateral leads- [facility] oagyg0450-22-20 12:13:00 Test Item Value Reference Range Interpretation Comments Gram stain No WBC's or Specimen isolate (test organisms seen. Information Specimen code = 1469) Source: Periton eal fluidSpecimen S ite: [facility] [id number] 12:13:00 Test Item Value Reference Range Interpretation Comments Gram stain No WBC's or Specimen isolate (test organisms seen. Information Specimen code = 1469) Source: Periton eal fluidSpecimen S ite: [place] [id number] 12:13:00 Test Item Value Reference Range Interpretation Comments Gram stain No WBC's or Specimen isolate (test organisms seen. Information Specimen code = 1469) Source: Periton eal fluidSpecimen S ite: [facility] [id number] 12:13:00 Test Item Value Reference Range Interpretation Comments Gram stain No WBC's or Specimen isolate (test organisms seen. Information Specimen code = 1469) Source: Periton eal fluidSpecimen S ite: [facility] [id number] 12:13:00 Test Item Value Reference Range Interpretation Comments Gram stain No WBC's or Specimen isolate (test organisms seen. Information Specimen code = 1469) Source: Periton eal fluidSpecimen S ite: [facility] [id number] 12:13:00 Test Item Value Reference Range Interpretation Comments Gram stain No WBC's or Specimen isolate (test organisms seen. Information Specimen code = 1469) Source: Periton eal fluidSpecimen S ite: [facility] [id number] 12:13:00 Test Item Value Reference Range Interpretation Comments Gram stain No WBC's or Specimen isolate (test organisms seen. Information Specimen code = 1469) Source: Periton eal fluidSpecimen S ite: [facility] [id number] 12:13:00 Test Item Value Reference Range Interpretation Comments Gram stain No WBC's or Specimen isolate (test organisms seen. Information Specimen code = 1469) Source: Periton eal fluidSpecimen S ite: [place] [id number] 12:13:00 Test Item Value Reference Range Interpretation Comments Gram stain No WBC's or Specimen isolate (test organisms seen. Information Specimen code = 1469) Source: Periton eal fluidSpecimen S ite: Stomach [facility] [id number] 12:13:00 Test Item Value Reference Range Interpretation Comments Gram stain No WBC's or Specimen isolate (test organisms seen. Information Specimen code = 1469) Source: Periton eal fluidSpecimen S ite: Stomach [facility] hvrxnhi5207-04-03 02:38:00 Test Item Value Reference Range Interpretation Comments Urine culture (test SEE COMMENT Bacteriu kayden screen code = 0229210) negative. [facility]2022-03-22 02:38:00 Test Item Value Reference Range Interpretation Comments Urine culture (test SEE COMMENT Bacteriu kayden screen code = 0376843) negative. [facility]2022-03-22 02:38:00 Test Item Value Reference Range Interpretation Comments Urine culture (test SEE COMMENT Bacteriu kayden screen code = 7124117) negative. [facility]2022-03-22 02:38:00 Test Item Value Reference Range Interpretation Comments Urine culture (test SEE COMMENT Bacteriu kayden screen code = 9306570) negative. [facility]2022-03-22 02:38:00 Test Item Value Reference Range Interpretation Comments Urine culture (test SEE COMMENT Bacteriu kayden screen code = [id number]) negative. [facility]2022-03-22 02:38:00 Test Item Value Reference Range Interpretation Comments Urine culture (test SEE COMMENT Bacteriu kayden screen code = 9847494) negative. [facility]2022-03-22 02:38:00 Test Item Value Reference Range Interpretation Comments Urine culture (test SEE COMMENT Bacteriu kayden screen code = 1322352) negative. [facility]2022-03-22 02:38:00 Test Item Value Reference Range Interpretation Comments Urine culture (test SEE COMMENT Bacteriu kayden screen code = 4545561) negative. [facility]2022-03-22 02:38:00 Test Item Value Reference Range Interpretation Comments Urine culture (test SEE COMMENT Bacteriu kayden screen code = 8835218) negative. [facility]2022-03-22 02:38:00 Test Item Value Reference Range Interpretation Comments Urine culture (test SEE COMMENT Bacteriu kayden screen code = 5467445) negative. [facility]PR[facility]ENTERLEWPI8388-88-65 18:22:00 Test Item Value Reference Range Interpretation Comments Ferritin Lvl (test code = Ferritin Lvl) 498 22-097 [place] 714712-02-07 18:22:00 Test Item Value Reference Range Interpretation Comments Iron (test code = Iron) 84 [place] 714712-02-07 18:22:00 Test Item Value Reference Range Interpretation Comments TIBC (test code = TIBC) 276 [place] 714712-02-07 18:22:00 Test Item Value Reference Range Interpretation Comments % Satur Fe (test code = % Satur Fe) 30 [place] 435752-02-07 18:22:00 Test Item Value Reference Range Interpretation Comments Creatinine Lvl (test code = Creatinine 6.07 0.50-1.40 Lvl) [place] 435752-02-07 18:22:00 Test Item Value Reference Range Interpretation Comments eGFR (test code = eGFR) 9 [place] 435752-02-07 18:22:00 Test Item Value Reference Range Interpretation Comments Glucose Lvl (test code = Glucose Lvl) 75 70-99 [place] 435752-02-07 18:22:00 Test Item Value Reference Range Interpretation Comments BUN (test code = BUN) 39 7-22 [place] 435752-02-07 18:22:00 Test Item Value Reference Range Interpretation Comments Creatinine Lvl (test code = Creatinine 6.00 0.50-1.40 Lvl) [place] 435752-02-07 18:22:00 Test Item Value Reference Range Interpretation Comments Sodium Lvl (test code = Sodium Lvl) 139 135-145 [place] 435752-02-07 18:22:00 Test Item Value Reference Range Interpretation Comments Potassium Lvl (test code = Potassium 3.9 3.5-5.1 Lvl) [place] 435752-02-07 18:22:00 Test Item Value Reference Range Interpretation Comments Chloride Lvl (test code = Chloride Lvl) 104 95-109 [place] 435752-02-07 18:22:00 Test Item Value Reference Range Interpretation Comments CO2 (test code = CO2) 29 24-32 [facility] [id number] 18:22:00 Test Item Value Reference Range Interpretation Comments Calcium Lvl (test code = Calcium Lvl) 9.8 8.5-10.5 [place] 435752-02-07 18:22:00 Test Item Value Reference Range Interpretation Comments Total Protein (test code = Total 7.3 6.4-8.4 Protein) [place] 435752-02-07 18:22:00 Test Item Value Reference Range Interpretation Comments Albumin Lvl (test code = Albumin Lvl) 3.5 3.5-5.0 [facility] [id number] 18:22:00 Test Item Value Reference Range Interpretation Comments ALT (test code = ALT) 20 See_Comment [Auto mated message] The system which ge nerated this result transmit nicko reference range : <=65. The reference range was not used to interpr et this result as adebayo l/abnormal. [facility] [id number] 18:22:00 Test Item Value Reference Range Interpretation Comments AST (test code = AST) 9 See_Comment [Auto mated message] The system which ge nerated this result transmit nicko reference range : <=37. The reference range was not used to interpr et this result as adebayo l/abnormal. [facility] [id number] 18:22:00 Test Item Value Reference Range Interpretation Comments Alk Phos (test code = Alk Phos) 67 39-136 [facility] [id number] 18:22:00 Test Item Value Reference Range Interpretation Comments Bili Total (test code = Bili Total) 0.4 0.2-1.3 [facility] [id number] 18:22:00 Test Item Value Reference Range Interpretation Comments AGAP (test code = AGAP) 9.9 10.0-20.0 [facility] [id number] 18:22:00 Test Item Value Reference Range Interpretation Comments B/C Ratio (test code = B/C Ratio) 6 1 6-25 [facility] [id number] 18:22:00 Test Item Value Reference Range Interpretation Comments Globulin (test code = Globulin) 3.8 2.7-4.2 [facility] [id number] 18:22:00 Test Item Value Reference Range Interpretation Comments A/G Ratio (test code = A/G Ratio) 0.9 1 0.7-1.6 [place] 435752-02-07 18:22:00 Test Item Value Reference Range Interpretation Comments eGFR (test code = eGFR) 9 [place] 435752-02-07 18:22:00 Test Item Value Reference Range Interpretation Comments Magnesium Lvl (test code = Magnesium 1.6 1.8-2.4 Lvl) [facility]2022-02-07 18:22:00 Test Item Value Reference Range Interpretation Comments Phosphorus (test code = Phosphorus) 4.7 2.5-4.5 [place] 435752-02-07 18:22:00 Test Item Value Reference Range Interpretation Comments Uric Acid (test code = Uric Acid) 4.9 3.8-8.0 [place] 435752-02-07 18:22:00 Test Item Value Reference Range Interpretation Comments Vitamin D, 25-OH, Total (test code = 29 Vitamin D, 25-OH, Total) [facility] [id number] 18:22:00 Test Item Value Reference Range Interpretation Comments Opiate Qnt (test code = Opiate Qnt) Negative [facility] [id number] 18:22:00 Test Item Value Reference Range Interpretation Comments Kaitlin Scr (test code = Kaitlin Scr) Negative [facility] [id number] 18:22:00 Test Item Value Reference Range Interpretation Comments Cannab Scr (test code = Cannab Scr) Negative [facility] [id number] 18:22:00 Test Item Value Reference Range Interpretation Comments Methadone Scr (test code = Methadone Negative Scr) [facility] [id number] 18:22:00 Test Item Value Reference Range Interpretation Comments Cocaine Scr (test code = Cocaine Negative Scr) [facility] [id number] 18:22:00 Test Item Value Reference Range Interpretation Comments Benzodiaz Scr (test code = Benzodiaz Negative Scr) [facility]2022-02-07 18:22:00 Test Item Value Reference Range Interpretation Comments Amph Scr (test code = Amph Scr) Negative [facility] [id number] 18:22:00 Test Item Value Reference Range Interpretation Comments Opiate Scr (test code = Opiate Scr) Positive [facility] [id number] 18:22:00 Test Item Value Reference Range Interpretation Comments 6-Acetylmor Scr (test code = Negative 6-Acetylmor Scr) [facility] - [id number] 18:22:00 Test Item Value Reference Range Interpretation Comments Cryptococcal Ag (test Negative (04/08/21 code = Cryptococcal Ag) 12:22 PM) [facility]2022-02-07 18:22:00 Test Item Value Reference Range Interpretation Comments Histo Yeast Ab (test code = Histo Yeast 1:16 Ab) [facility]2022-02-07 18:22:00 Test Item Value Reference Range Interpretation Comments Histo mycel Ab (test code = Histo mycel 1:8 Ab) [facility]2022-02-07 18:22:00 Test Item Value Reference Range Interpretation Comments Blastomyces Ab (test code = NEGATIVE Blastomyces Ab) [facility]2022-02-07 18:22:00 Test Item Value Reference Range Interpretation Comments Coccid Ab IgM (test code = Coccid Ab NEGATIVE IgM) [facility]2022-02-07 18:22:00 Test Item Value Reference Range Interpretation Comments Coccid Ab IgG (test code = Coccid Ab NEGATIVE IgG) [facility] HospitalGttjywzDJULDGBLOZ7603-27-90 18:22:00 Test Item Value Reference Range Interpretation Comments Segs (test code = Segs) 69.3 45.0-75.[address] [facility] HospitalHmiqxkmLFGJEKOUQN7265-62-99 18:22:00 Test Item Value Reference Range Interpretation Comments Lymphocytes (test code = Lymphocytes) 22.3 20.0-40.[address] [facility] HospitalLdaubbyNSQOVOGXTK7565-99-07 18:22:00 Test Item Value Reference Range Interpretation Comments Monocytes (test code = Monocytes) 4.8 2.0-12.[address] [facility] HospitalSnboowoVPGHOWNVEY2566-10-26 18:22:00 Test Item Value Reference Range Interpretation Comments Eosinophils (test code = 3.0 See_Comment [A utomated message] The Eosinophils) system which ge nerated this result tra nsmitted reference range : <=4.0. The reference r carlos was not used to int erpret this result as normal/abnormal . [facility] HospitalIrcegkdRCKXCWYMLN7280-91-39 18:22:00 Test Item Value Reference Range Interpretation Comments Basophils (test code = 0.6 See_Comment [Aut omated message] The Basophils) system which ge nerated this result tra nsmitted reference range : <=1.0. The reference r carlos was not used to int erpret this result as normal/abnormal . [facility] HospitalHuysecaDZTVIPARHH5500-21-17 18:22:00 Test Item Value Reference Range Interpretation Comments Neutrophils # (test code = Neutrophils 5.6 1.5-8.1 #) [facility] HospitalTaicugeHHVCPSSTVV3059-22-60 18:22:00 Test Item Value Reference Range Interpretation Comments Lymphocytes # (test code = Lymphocytes 1.8 1.0-5.5 #) [facility] HospitalJpwajzgUEYUUYBRVA3190-23-87 18:22:00 Test Item Value Reference Range Interpretation Comments Monocytes # (test code 0.4 See_Comment [Aut omated message] The = Monocytes #) system which generated this result tra nsmitted reference range : <=0.8. The reference r carlos was not used to int erpret this result as normal/abnormal . [facility] HospitalTgsnniaFTANJXQSVK4906-48-92 18:22:00 Test Item Value Reference Range Interpretation Comments Eosinophils # (test code 0.2 See_Comment [A utomated message] The = Eosinophils #) system whic h generated this result tra nsmitted reference range : <=0.5. The reference r carlos was not used to int erpret this result as normal/abnormal . [facility] HospitalMicpkdmETBGNQEHMK1199-07-11 18:22:00 Test Item Value Reference Range Interpretation Comments PT (test code = PT) 12.6 s 12.0-14.7 [place] 045032-02-07 18:22:00 Test Item Value Reference Range Interpretation Comments INR (test code = INR) 0.95 1 0.85-1.17 [place] 045032-02-07 18:22:00 Test Item Value Reference Range Interpretation Comments PTT (test code = PTT) 32.2 s 22.9-35.8 [place] 045032-02-07 18:22:00 Test Item Value Reference Range Interpretation Comments TEG Interp (test Thrombelastograph results code = TEG show increased values of Interp) both Angle Alpha and MA. These findings are suggestive of platelet hypercoagulation. CPT:[address] [facility] HospitalMkbatvxQAARDGZKYP8981-43-44 18:22:00 Test Item Value Reference Range Interpretation Comments R-time (test code = R-time) 6.0 min 5.0-10.0 [place] 045032-02-07 18:22:00 Test Item Value Reference Range Interpretation Comments K-time (test code = K-time) 1.1 min 1.0-3.0 [place] 045032-02-07 18:22:00 Test Item Value Reference Range Interpretation Comments Angle (test code = Angle) 74.1 degrees 53.0-72.0 [place] 045032-02-07 18:22:00 Test Item Value Reference Range Interpretation Comments Max Amp (test code = Max Amp) 73.3 mm 50.0-70.[address] HospitalLcnwdayDKYLXOJDXP1197-05-19 18:22:00 Test Item Value Reference Range Interpretation Comments G-value (test code = G-value) 13.7 4.5-11.[address] [facility] [facility] HospitalDdohcglWWDMIIJMSG1704-40-00 18:22:00 Test Item Value Reference Range Interpretation Comments Ly30 (test code = 0.0 See_Comment [Automate d message] The Ly30) system which ge nerated this result transmit nicko reference range : <=7.5. The reference range was not used to interpr et this result as adebayo l/abnormal. [facility] HospitalDdhalaiULHLNQVHYO9196-99-34 18:22:00 Test Item Value Reference Range Interpretation Comments Coag Index (test code 2.5 1 See_Comment [Auto mated message] The = Coag Index) system which g enerated this result transmit nicko reference range : <=3.0. The reference range was not used to interpr et this result as adebayo l/abnormal. [place] 045032-02-07 18:22:00 Test Item Value Reference Range Interpretation Comments TEG Data (test code = See Note (04/08/21 12:22 TEG Data) PM) [place] 045032-02-07 18:22:00 Test Item Value Reference Range Interpretation Comments WBC (test code = WBC) 8.0 3.7-10.4 [place] 045032-02-07 18:22:00 Test Item Value Reference Range Interpretation Comments RBC (test code = RBC) 3.87 4.70-6.10 [place] [address]-02-07 18:22:00 Test Item Value Reference Range Interpretation Comments Hgb (test code = Hgb) 12.0 14.0-18.0 [place] [address]-02-07 18:22:00 Test Item Value Reference Range Interpretation Comments Hct (test code = Hct) 37.0 42.0-54.0 [place] 045032-02-07 18:22:00 Test Item Value Reference Range Interpretation Comments MCV (test code = MCV) 95.8 80.0-94.0 [place] 045032-02-07 18:22:00 Test Item Value Reference Range Interpretation Comments MCH (test code = MCH) 31.1 pg 27.0-31.0 [place] 045032-02-07 18:22:00 Test Item Value Reference Range Interpretation Comments MCHC (test code = MCHC) 32.4 32.0-36.0 [place] 045032-02-07 18:22:00 Test Item Value Reference Range Interpretation Comments RDW (test code = RDW) 15.1 11.5-14.5 [place] [address]-02-07 18:22:00 Test Item Value Reference Range Interpretation Comments Platelet (test code = Platelet) 255 133-450 [place] 045032-02-07 18:22:00 Test Item Value Reference Range Interpretation Comments MPV (test code = MPV) 8.7 7.4-10.4 [place] [address]-02-07 18:22:00 Test Item Value Reference Range Interpretation Comments KAREN Ser Pattern A distinct monoclonal (test code = KAREN Ser band is present in the Pattern) IgM izabella with a corresponding distinct band in the kappa light chain izabella. The polyclonal gamma globulin background is preserved in all lanes. [place] [address]-02-07 18:22:00 Test Item Value Reference Range Interpretation [...] and concur with the resident's interpretation. CPT 28606[facility]Z [facility]jyhytrAJMFVRQZHR0392-15-32 18:22:00 Test Item Value Reference Range Interpretation Comments Cystatin C (test code = Cystatin C) 5.38 [place] 123882-02-07 18:22:00 Test Item Value Reference Range Interpretation Comments eGFR Cystatin-based (test code = eGFR 8 Cystatin-based) [place] 123882-02-07 18:22:00 Test Item Value Reference Range Interpretation Comments Albumin % (test code = Albumin %) 54.2 55.8-66.1 [place] 123882-02-07 18:22:00 Test Item Value Reference Range Interpretation Comments Alpha 1 % (test code = Alpha 1 %) 5.8 2.8-4.9 [place] 123882-02-07 18:22:00 Test Item Value Reference Range Interpretation Comments Alpha 2 % (test code = Alpha 2 %) 12.8 7.0-11.9 [place] 123882-02-07 18:22:00 Test Item Value Reference Range Interpretation Comments Beta % (test code = Beta %) 11.7 7.8-13.7 [place] [address]-02-07 18:22:00 Test Item Value Reference Range Interpretation Comments Gamma % (test code = Gamma %) 15.5 11.1-18.7 [place] 123882-02-07 18:22:00 Test Item Value Reference Range Interpretation Comments Albumin (SPE) (test code = Albumin 3.96 3.57-5.55 (SPE)) [place] 123882-02-07 18:22:00 Test Item Value Reference Range Interpretation Comments Alpha 1 Glob (test code = Alpha 1 Glob) 0.42 0.18-0.41 [place] 123882-02-07 18:22:00 Test Item Value Reference Range Interpretation Comments Alpha 2 Glob (test code = Alpha 2 Glob) 0.93 0.45-1.00 [place] [address]-02-07 18:22:00 Test Item Value Reference Range Interpretation Comments Beta Glob (test code = Beta Glob) 0.85 0.50-1.15 [place] 123882-02-07 18:22:00 Test Item Value Reference Range Interpretation Comments Gamma Glob (test code = Gamma Glob) 1.13 0.71-1.57 [place] 123882-02-07 18:22:00 Test Item Value Reference Range Interpretation Comments Tot Prot (SPE) (test code = Tot Prot 7.3 6.4-8.4 (SPE)) [place] 123882-02-07 18:22:00 Test Item Value Reference Range Interpretation [...] and concur with the resident's interpretation. CPT 78270-JD [facility] TylerKgmkgxeQZHIDPCANZ7915-86-69 18:22:00 Test Item Value Reference Range Interpretation Comments Rennert Free Light Chains (test code = 122.3 Rennert Free Light Chains) [place] 123882-02-07 18:22:00 Test Item Value Reference Range Interpretation Comments Lambda Free Light Chains (test code = 74.0 Lambda Free Light Chains) [facility] TylerLmqeyzbIHZJKPHSNA1685-86-43 18:22:00 Test Item Value Reference Range Interpretation Comments Rennert/Lambda Free Light Chains Ratio 1.65 1 (test code = Rennert/Lambda Free Light Chains Ratio) [place] 123882-02-07 18:22:00 Test Item Value Reference Range Interpretation Comments CMV IgG (test code = CMV IgG) no gt [facility] CenterKvijvktKIADSNLYCN6636-48-45 18:22:00 Test Item Value Reference Range Interpretation Comments EBV VCA IgG (test code = EBV VCA IgG) 239.00 [place] 123882-02-07 18:22:00 Test Item Value Reference Range Interpretation Comments HIV Ag/Ab 4th Gen Negative *NA*(04/08/21 (test code = HIV 12:22 PM) Ag/Ab 4th Gen) [place] [address]-02-07 18:22:00 Test Item Value Reference Range Interpretation Comments Hep A Tot (test code = Hep A Tot) [facility]ACTIVE [facility] TylerWzweiaxUPTLYHMPDR5830-98-46 18:22:00 Test Item Value Reference Range Interpretation Comments Hep Bs Ab (test code = Hep Bs Ab) no gt [facility] TylerTjlvfnsMXGUONVRDE4640-03-82 18:22:00 Test Item Value Reference Range Interpretation Comments Hep B Core Ab (test code = Hep B NON-REACTIVE Core Ab) [facility] TylerVrxmnzyRUMCMEQLUE9612-01-14 18:22:00 Test Item Value Reference Range Interpretation Comments Hep Bs Ag (test code Negative *NA*(04/08/21 = Hep Bs Ag) 12:22 PM) [facility] TylerBhqtkoaSZBFHDGELR2744-97-62 18:22:00 Test Item Value Reference Range Interpretation Comments Hep C Ab (test code = Hep C Ab) NON-REACTIVE [facility] TylerNgbwaalOUWCRVKUGG1805-85-03 18:22:00 Test Item Value Reference Range Interpretation Comments Hep Signal to Cut-Off (test code = Hep 0.01 1 Signal to Cut-Off) [facility] TylerAgrtdkbXSKEXQVUFD8944-32-73 18:22:00 Test Item Value Reference Range Interpretation Comments HSV 1 IgG (test code = HSV 1 IgG) 26.60 [facility] TylerZpffkeyHDDPDAHMND0696-53-88 18:22:00 Test Item Value Reference Range Interpretation Comments HSV 2 IgG (test code = HSV 2 IgG) no gt [facility] TylerEvhkckcYOJTVZQAQE9602-65-65 18:22:00 Test Item Value Reference Range Interpretation Comments T-Spot.TB (test code = T-Spot.TB) TNP [facility] TylerSficfjfJWLTBYXZSE9696-64-05 18:22:00 Test Item Value Reference Range Interpretation Comments T-Spot Pnl A Neg Ctrl Corrected (test TNP code = T-Spot Pnl A Neg Ctrl Corrected) [facility] TylerMiyjygaAKTPQSCREF9648-08-01 18:22:00 Test Item Value Reference Range Interpretation Comments T-Spot Pnl B Neg Ctrl Corrected (test TNP code = T-Spot Pnl B Neg Ctrl Corrected) [facility] TylerGrdovqiDZOOOVXMPG8673-42-30 18:22:00 Test Item Value Reference Range Interpretation Comments T-Spot Neg Ctrl (test code = T-Spot Neg TNP Ctrl) [facility] TylerSufvyfaPXIDNIQLHH3960-71-94 18:22:00 Test Item Value Reference Range Interpretation Comments T-Spot Pos Ctrl (test code = T-Spot Pos TNP Ctrl) [facility] TylerOsjmrldGFZCSYYRAW9761-35-40 18:22:00 Test Item Value Reference Range Interpretation Comments Toxoplasma IgG (test code = Toxoplasma no gt IgG) [facility] CenterTfclsuzIBKFQVKMGU1741-29-69 18:22:00 Test Item Value Reference Range Interpretation Comments Toxoplasma IgM (test code = Toxoplasma no gt IgM) [facility] CenterTrplpzvMFDAGUTRHK5367-41-51 18:22:00 Test Item Value Reference Range Interpretation Comments Treponemal Ab (test code Non-Reactive = Treponemal Ab) 42(04/08/21 12:22 PM) [facility] CenterWsbcqctMOLLYJHZNV3177-25-72 18:22:00 Test Item Value Reference Range Interpretation Comments Varicella IgG (test code = Varicella 2806.00 IgG) [facility] CenterSwhtcpgCMVTRMPNZG9294-29-37 18:22:00 Test Item Value Reference Range Interpretation Comments Mumps IgG (test code = Mumps IgG) no gt [facility] McallenUjaugjpXRBVWVIZPL4899-98-32 18:22:00 Test Item Value Reference Range Interpretation Comments Rubella IgG (test code = Rubella IgG) no gt [facility] McallenFytoecpLFTPYBYJTL7135-35-38 18:22:00 Test Item Value Reference Range Interpretation Comments Rubeola IgG (test code = Rubeola IgG) 204.00 [facility] CenterYyedslyVLOHOE0933-97-83 18:22:00 Test Item Value Reference Range Interpretation Comments Trig (test code = Trig) 209 [facility] CenterHqwgpztYUSMYA6666-49-99 18:22:00 Test Item Value Reference Range Interpretation Comments Chol (test code = Chol) 209 [facility] CenterAueylwyDIOKHP1795-25-65 18:22:00 Test Item Value Reference Range Interpretation Comments HDL (test code = HDL) 33 [facility] CenterUpiuneeWQJVYP1788-47-36 18:22:00 Test Item Value Reference Range Interpretation Comments CHD Risk (test code = CHD Risk) 6.33 1 4.00-7.30 [facility] CenterBitgkdeRPZMNI5287-02-69 18:22:00 Test Item Value Reference Range Interpretation Comments LDL (Calculated) (test code = LDL 134 (Calculated)) [facility] CenterRrpzlaqMHOLAB1732-82-58 18:22:00 Test Item Value Reference Range Interpretation Comments VLDL (test code = VLDL) 42 1 [facility]ann[facility] - XRNQQGAV7560-70-86 18:22:00 Test Item Value Reference Range Interpretation Comments Strongyloides Antibodies (test code NEGATIVE = Strongyloides Antibodies) [facility] McallenannPARATHYROID BUGTIFF4108-08-18 18:22:00 Test Item Value Reference Range Interpretation Comments PTH Intact (test code = PTH Intact) 511.0 18.4-80.1 [facility] UULBYNJ5449-00-40 18:22:00 Test Item Value Reference Range Interpretation Comments Misc Quest (test code = Misc Quest) [facility]PORT [facility] VKFUZVXMG7796-16-75 18:22:00 Test Item Value Reference Range Interpretation Comments Nicotine Lvl (test code = Nicotine Lvl) no gt [facility] [id number] 18:22:00 Test Item Value Reference Range Interpretation Comments Cotinine Lvl (test code = Cotinine Lvl) no gt [facility] [id number] 18:22:00 Test Item Value Reference Range Interpretation Comments Hgb A1C (test code = Hgb A1C) 5.7 [facility] [id number] 18:22:00 Test Item Value Reference Range Interpretation Comments PSA (test code = PSA) 2.26 [facility] [id number] 18:22:00 Test Item Value Reference Range Interpretation Comments T cruzi (Chagas) Ab (test code = NONREACTIVE T cruzi (Chagas) Ab) [facility] - [id number] 18:22:00 Test Item Value Reference Range Interpretation Comments W Nile Ab IgG (test code = W Nile Ab no gt IgG) [facility] - [id number] 18:22:00 Test Item Value Reference Range Interpretation Comments W Nile Ab IgM (test code = W Nile Ab no gt IgM) [facility] [id number] 18:22:00 Test Item Value Reference Range Interpretation Comments Ferritin Lvl (test code = Ferritin Lvl) 498 22-455 [facility] [id number] 18:22:00 Test Item Value Reference Range Interpretation Comments Iron (test code = Iron) 84 [facility] [id number] 18:22:00 Test Item Value Reference Range Interpretation Comments TIBC (test code = TIBC) 276 [facility] [id number] 18:22:00 Test Item Value Reference Range Interpretation Comments % Satur Fe (test code = % Satur Fe) 30 [place] 435752-02-07 18:22:00 Test Item Value Reference Range Interpretation Comments Creatinine Lvl (test code = Creatinine 6.07 0.50-1.40 Lvl) [place] 435752-02-07 18:22:00 Test Item Value Reference Range Interpretation Comments eGFR (test code = eGFR) 9 [place] 435752-02-07 18:22:00 Test Item Value Reference Range Interpretation Comments Glucose Lvl (test code = Glucose Lvl) 75 70-99 [place] 435752-02-07 18:22:00 Test Item Value Reference Range Interpretation Comments BUN (test code = BUN) 39 7-22 [place] 435752-02-07 18:22:00 Test Item Value Reference Range Interpretation Comments Creatinine Lvl (test code = Creatinine 6.00 0.50-1.40 Lvl) [place] 435752-02-07 18:22:00 Test Item Value Reference Range Interpretation Comments Sodium Lvl (test code = Sodium Lvl) 139 135-145 [place] 435752-02-07 18:22:00 Test Item Value Reference Range Interpretation Comments Potassium Lvl (test code = Potassium 3.9 3.5-5.1 Lvl) [place] 435752-02-07 18:22:00 Test Item Value Reference Range Interpretation Comments Chloride Lvl (test code = Chloride Lvl) 104 95-109 [place] 435752-02-07 18:22:00 Test Item Value Reference Range Interpretation Comments CO2 (test code = CO2) 29 24-32 [place] 435752-02-07 18:22:00 Test Item Value Reference Range Interpretation Comments Calcium Lvl (test code = Calcium Lvl) 9.8 8.5-10.5 [place] 435752-02-07 18:22:00 Test Item Value Reference Range Interpretation Comments Total Protein (test code = Total 7.3 6.4-8.4 Protein) [place] 435752-02-07 18:22:00 Test Item Value Reference Range Interpretation Comments Albumin Lvl (test code = Albumin Lvl) 3.5 3.5-5.0 [place] 435752-02-07 18:22:00 Test Item Value Reference Range Interpretation Comments ALT (test code = ALT) 20 See_Comment [Auto mated message] The system which ge nerated this result transmit nicko reference range : <=65. The reference range was not used to interpr et this result as adebayo l/abnormal. [facility] [employer] [id number] 18:22:00 Test Item Value Reference Range Interpretation Comments AST (test code = AST) 9 See_Comment [Auto mated message] The system which ge nerated this result transmit nicko reference range : <=37. The reference range was not used to interpr et this result as adebayo l/abnormal. [facility] [employer] [id number] 18:22:00 Test Item Value Reference Range Interpretation Comments Alk Phos (test code = Alk Phos) 67 39-136 [facility] [employer] [id number] 18:22:00 Test Item Value Reference Range Interpretation Comments Bili Total (test code = Bili Total) 0.4 0.2-1.3 [facility] [employer] [id number] 18:22:00 Test Item Value Reference Range Interpretation Comments AGAP (test code = AGAP) 9.9 10.0-20.0 [facility] [employer] [id number] 18:22:00 Test Item Value Reference Range Interpretation Comments B/C Ratio (test code = B/C Ratio) 6 1 6-25 [facility] [employer] [id number] 18:22:00 Test Item Value Reference Range Interpretation Comments Globulin (test code = Globulin) 3.8 2.7-4.2 [facility] [employer] [id number] 18:22:00 Test Item Value Reference Range Interpretation Comments A/G Ratio (test code = A/G Ratio) 0.9 1 0.7-1.6 [facility] [employer] [id number] 18:22:00 Test Item Value Reference Range Interpretation Comments eGFR (test code = eGFR) 9 [facility] [employer] [id number] 18:22:00 Test Item Value Reference Range Interpretation Comments Magnesium Lvl (test code = Magnesium 1.6 1.8-2.4 Lvl) [facility] [employer] [id number] 18:22:00 Test Item Value Reference Range Interpretation Comments Phosphorus (test code = Phosphorus) 4.7 2.5-4.5 [facility] 18:22:00 Test Item Value Reference Range Interpretation Comments Uric Acid (test code = Uric Acid) 4.9 3.8-8.0 [facility] [id number] 18:22:00 Test Item Value Reference Range Interpretation Comments Vitamin D, 25-OH, Total (test code = 29 Vitamin D, 25-OH, Total) [facility] [id number] 18:22:00 Test Item Value Reference Range Interpretation Comments Opiate Qnt (test code = Opiate Qnt) Negative [facility] [id number] 18:22:00 Test Item Value Reference Range Interpretation Comments Kaitlin Scr (test code = Kaitlin Scr) Negative [facility] [id number] 18:22:00 Test Item Value Reference Range Interpretation Comments Cannab Scr (test code = Cannab Scr) Negative [facility] [id number] 18:22:00 Test Item Value Reference Range Interpretation Comments Methadone Scr (test code = Methadone Negative Scr) [facility] [id number] 18:22:00 Test Item Value Reference Range Interpretation Comments Cocaine Scr (test code = Cocaine Negative Scr) [facility] [id number] 18:22:00 Test Item Value Reference Range Interpretation Comments Benzodiaz Scr (test code = Benzodiaz Negative Scr) [facility] [id number] 18:22:00 Test Item Value Reference Range Interpretation Comments Amph Scr (test code = Amph Scr) Negative [facility] [id number] 18:22:00 Test Item Value Reference Range Interpretation Comments Opiate Scr (test code = Opiate Scr) Positive [facility] [id number] 18:22:00 Test Item Value Reference Range Interpretation Comments 6-Acetylmor Scr (test code = Negative 6-Acetylmor Scr) [facility] - [id number] 18:22:00 Test Item Value Reference Range Interpretation Comments Cryptococcal Ag (test Negative (04/08/21 code = Cryptococcal Ag) 12:22 PM) [facility] - [id number] 18:22:00 Test Item Value Reference Range Interpretation Comments Histo Yeast Ab (test code = Histo Yeast 1:16 Ab) [facility] - [id number] 18:22:00 Test Item Value Reference Range Interpretation Comments Histo mycel Ab (test code = Histo mycel 1:8 Ab) [facility]2022-02-07 18:22:00 Test Item Value Reference Range Interpretation Comments Blastomyces Ab (test code = NEGATIVE Blastomyces Ab) [facility]2022-02-07 18:22:00 Test Item Value Reference Range Interpretation Comments Coccid Ab IgM (test code = Coccid Ab NEGATIVE IgM) [facility]2022-02-07 18:22:00 Test Item Value Reference Range Interpretation Comments Coccid Ab IgG (test code = Coccid Ab NEGATIVE IgG) [place] 045032-02-07 18:22:00 Test Item Value Reference Range Interpretation Comments Segs (test code = Segs) 69.3 45.0-75.0 [place] [address]-02-07 18:22:00 Test Item Value Reference Range Interpretation Comments Lymphocytes (test code = Lymphocytes) 22.3 20.0-40.0 [place] 045032-02-07 18:22:00 Test Item Value Reference Range Interpretation Comments Monocytes (test code = Monocytes) 4.8 2.0-12.0 [place] [address]-02-07 18:22:00 Test Item Value Reference Range Interpretation Comments Eosinophils (test code = 3.0 See_Comment [A utomated message] The Eosinophils) system which ge nerated this result tra nsmitted reference range : <=4.0. The reference r carlos was not used to int erpret this result as normal/abnormal . [place] 045032-02-07 18:22:00 Test Item Value Reference Range Interpretation Comments Basophils (test code = 0.6 See_Comment [Aut omated message] The Basophils) system which ge nerated this result tra nsmitted reference range : <=1.0. The reference r carlos was not used to int erpret this result as normal/abnormal . [place] 045032-02-07 18:22:00 Test Item Value Reference Range Interpretation Comments Neutrophils # (test code = Neutrophils 5.6 1.5-8.1 #) [place] 045032-02-07 18:22:00 Test Item Value Reference Range Interpretation Comments Lymphocytes # (test code = Lymphocytes 1.8 1.0-5.5 #) [id number] 18:22:00 Test Item Value Reference Range Interpretation Comments Monocytes # (test code 0.4 See_Comment [Aut omated message] The = Monocytes #) system which generated this result tra nsmitted reference range : <=0.8. The reference r carlos was not used to int erpret this result as normal/abnormal . [facility] HospitalHjatrlgKYSXTVTNGP2976-80-85 18:22:00 Test Item Value Reference Range Interpretation Comments Eosinophils # (test code 0.2 See_Comment [A utomated message] The = Eosinophils #) system whic h generated this result tra nsmitted reference range : <=0.5. The reference r carlos was not used to int erpret this result as normal/abnormal . [place] [address]-02-07 18:22:00 Test Item Value Reference Range Interpretation Comments PT (test code = PT) 12.6 s 12.0-14.7 [place] 045032-02-07 18:22:00 Test Item Value Reference Range Interpretation Comments INR (test code = INR) 0.95 1 0.85-1.17 [place] [address]-02-07 18:22:00 Test Item Value Reference Range Interpretation Comments PTT (test code = PTT) 32.2 s 22.9-35.8 [place] [address]-02-07 18:22:00 Test Item Value Reference Range Interpretation Comments TEG Interp (test Thrombelastograph results code = TEG show increased values of Interp) both Angle Alpha and MA. These findings are suggestive of platelet hypercoagulation. CPT:[address] [facility] HospitalJwfaxnlDQGTVDAQQC5014-74-04 18:22:00 Test Item Value Reference Range Interpretation Comments R-time (test code = R-time) 6.0 min 5.0-10.0 [place] [address]-02-07 18:22:00 Test Item Value Reference Range Interpretation Comments K-time (test code = K-time) 1.1 min 1.0-3.0 [place] 045032-02-07 18:22:00 Test Item Value Reference Range Interpretation Comments Angle (test code = Angle) 74.1 degrees 53.0-72.0 [place] [address]-02-07 18:22:00 Test Item Value Reference Range Interpretation Comments Max Amp (test code = Max Amp) 73.3 mm 50.0-70.0 [place] [address]-02-07 18:22:00 Test Item Value Reference Range Interpretation Comments G-value (test code = G-value) 13.7 4.5-11.0 [place] [address]-02-07 18:22:00 Test Item Value Reference Range Interpretation Comments Ly30 (test code = 0.0 See_Comment [Automate d message] The Ly30) system which ge nerated this result transmit nicko reference range : <=7.5. The reference range was not used to interpr et this result as adebayo l/abnormal. [place] [address]-02-07 18:22:00 Test Item Value Reference Range Interpretation Comments Coag Index (test code 2.5 1 See_Comment [Auto mated message] The = Coag Index) system which g enerated this result transmit nicko reference range : <=3.0. The reference range was not used to interpr et this result as adebayo l/abnormal. [place] [address]-02-07 18:22:00 Test Item Value Reference Range Interpretation Comments TEG Data (test code = See Note (04/08/21 12:22 TEG Data) PM) [place] [address]-02-07 18:22:00 Test Item Value Reference Range Interpretation Comments WBC (test code = WBC) 8.0 3.7-10.4 [place] [address]-02-07 18:22:00 Test Item Value Reference Range Interpretation Comments RBC (test code = RBC) 3.87 4.70-6.10 [place] [address]-02-07 18:22:00 Test Item Value Reference Range Interpretation Comments Hgb (test code = Hgb) 12.0 14.0-18.0 [place] [address]-02-07 18:22:00 Test Item Value Reference Range Interpretation Comments Hct (test code = Hct) 37.0 42.0-54.0 [place] [address]-02-07 18:22:00 Test Item Value Reference Range Interpretation Comments MCV (test code = MCV) 95.8 80.0-94.0 [place] 045032-02-07 18:22:00 Test Item Value Reference Range Interpretation Comments MCH (test code = MCH) 31.1 pg 27.0-31.[address] [facility] HospitalGhlybhpJIMOQHGMDJ3448-98-95 18:22:00 Test Item Value Reference Range Interpretation Comments MCHC (test code = MCHC) 32.4 32.0-36.[address] [facility] HospitalJmsntglYKLSIFMKPJ9873-49-99 18:22:00 Test Item Value Reference Range Interpretation Comments RDW (test code = RDW) 15.1 11.5-14.[address] [facility] [facility] HospitalOgcdtvxOUSBIXMOOH7420-60-98 18:22:00 Test Item Value Reference Range Interpretation Comments Platelet (test code = Platelet) 255 133-[address] [facility] HospitalIyjjkjvRPXXWTOCNG8348-50-09 18:22:00 Test Item Value Reference Range Interpretation Comments MPV (test code = MPV) 8.7 7.4-10.4 [facility]TI[facility]CCLGSQ4643[facility] 18:22:00 Test Item Value Reference Range Interpretation Comments KAREN Ser Pattern A distinct monoclonal (test code = KAREN Ser band is present in the Pattern) IgM izabella with a corresponding distinct band in the kappa light chain izabella. The polyclonal gamma globulin background is preserved in all lanes. [facility] TylerUtbjqdiXRPAJQMLVL1564-97-73 18:22:00 Test Item Value Reference Range Interpretation [...] and concur with the resident's interpretation. CPT 36996-DX [facility] TylerNlgmzggCONLSVPKOB9265-78-20 18:22:00 Test Item Value Reference Range Interpretation Comments Cystatin C (test code = Cystatin C) 5.38 [facility] TylerVtdfxoeSIGXCLPXGC6351-33-90 18:22:00 Test Item Value Reference Range Interpretation Comments eGFR Cystatin-based (test code = eGFR 8 Cystatin-based) [facility] TylerAdvtoewUIKQQOVGDC4551-91-84 18:22:00 Test Item Value Reference Range Interpretation Comments Albumin % (test code = Albumin %) 54.2 55.8-66.1 [place] 123882-02-07 18:22:00 Test Item Value Reference Range Interpretation Comments Alpha 1 % (test code = Alpha 1 %) 5.8 2.8-4.9 [facility]enBbaoljrWTUJOERISY1400-14-12 18:22:00 Test Item Value Reference Range Interpretation Comments Alpha 2 % (test code = Alpha 2 %) 12.8 7.0-11.9 [facility] McallenKgcnqugMJMJAKJBHA0029-82-30 18:22:00 Test Item Value Reference Range Interpretation Comments Beta % (test code = Beta %) 11.7 7.8-13.7 [facility] McallenDkpwzodMZNSTKCIVC1962-50-52 18:22:00 Test Item Value Reference Range Interpretation Comments Gamma % (test code = Gamma %) 15.5 11.1-18.7 [facility] McallenYhcmupeZNWNPSJEHB6113-76-18 18:22:00 Test Item Value Reference Range Interpretation Comments Albumin (SPE) (test code = Albumin 3.96 3.57-5.55 (SPE)) [facility] CenterBamflnhWULEXDLOSJ9721-78-11 18:22:00 Test Item Value Reference Range Interpretation Comments Alpha 1 Glob (test code = Alpha 1 Glob) 0.42 0.18-0.41 [facility] McallenWcpylnoWOWRNURPEY0860-72-00 18:22:00 Test Item Value Reference Range Interpretation Comments Alpha 2 Glob (test code = Alpha 2 Glob) 0.93 0.45-1.00 [facility] McallenHuwcbxsRRMNMOTYDL3699-32-61 18:22:00 Test Item Value Reference Range Interpretation Comments Beta Glob (test code = Beta Glob) 0.85 0.50-1.15 [facility] McallenJnhfghfOGPEYYPGJP2187-03-88 18:22:00 Test Item Value Reference Range Interpretation Comments Gamma Glob (test code = Gamma Glob) 1.13 0.71-1.57 [facility] McallenTajdtdwFPUDMWQKIY0168-06-14 18:22:00 Test Item Value Reference Range Interpretation Comments Tot Prot (SPE) (test code = Tot Prot 7.3 6.4-8.4 (SPE)) [facility] CenterAxmqjzwCZXJTYFLKA3855-38-94 18:22:00 Test Item Value Reference Range Interpretation [...] and concur with the resident's interpretation. CPT 68701-FK [facility] CenterHkinqzrFXHJGHSOPQ3627-08-87 18:22:00 Test Item Value Reference Range Interpretation Comments Rennert Free Light Chains (test code = 122.3 Rennert Free Light Chains) [facility] CenterKjmmcmoRLWHNNNQXE1129-55-78 18:22:00 Test Item Value Reference Range Interpretation Comments Lambda Free Light Chains (test code = 74.0 Lambda Free Light Chains) [facility] CenterXnasyvbVQEDAIZXDV0346-41-17 18:22:00 Test Item Value Reference Range Interpretation Comments Rennert/Lambda Free Light Chains Ratio 1.65 1 (test code = Rennert/Lambda Free Light Chains Ratio) [facility] TylerEerzjuaMCQUHYMRIB1144-43-44 18:22:00 Test Item Value Reference Range Interpretation Comments CMV IgG (test code = CMV IgG) no gt [facility] CenterZjwlzyrLMJKPCGSTB1264-35-76 18:22:00 Test Item Value Reference Range Interpretation Comments EBV VCA IgG (test code = EBV VCA IgG) 239.00 [facility] CenterItjezmqRINBJWWBYM3748-69-66 18:22:00 Test Item Value Reference Range Interpretation Comments HIV Ag/Ab 4th Gen Negative *NA*(04/08/21 (test code = HIV 12:22 PM) Ag/Ab 4th Gen) [facility] TylerOlgfkomNVFKWZDHTJ5765-69-28 18:22:00 Test Item Value Reference Range Interpretation Comments Hep A Tot (test code = Hep A Tot) REACTIVE [facility] TylerSryozecPEYRHHSIOB8528-17-57 18:22:00 Test Item Value Reference Range Interpretation Comments Hep Bs Ab (test code = Hep Bs Ab) no gt [facility] CenterGscprckSKFNOLCSRW5488-32-14 18:22:00 Test Item Value Reference Range Interpretation Comments Hep B Core Ab (test code = Hep B NON-REACTIVE Core Ab) [facility] CenterFowmeolBHWZFGJTMF0946-34-89 18:22:00 Test Item Value Reference Range Interpretation Comments Hep Bs Ag (test code Negative *NA*(04/08/21 = Hep Bs Ag) 12:22 PM) [facility] CenterDstgpbrPAIFCOZTDS1488-55-51 18:22:00 Test Item Value Reference Range Interpretation Comments Hep C Ab (test code = Hep C Ab) NON-REACTIVE [place] [address]-02-07 18:22:00 Test Item Value Reference Range Interpretation Comments Hep Signal to Cut-Off (test code = Hep 0.01 1 Signal to Cut-Off) [place] [address]-02-07 18:22:00 Test Item Value Reference Range Interpretation Comments HSV 1 IgG (test code = HSV 1 IgG) 26.60 [place] [address]-02-07 18:22:00 Test Item Value Reference Range Interpretation Comments HSV 2 IgG (test code = HSV 2 IgG) no gt [place] [address]-02-07 18:22:00 Test Item Value Reference Range Interpretation Comments T-Spot.TB (test code = T-Spot.TB) TNP [place] 123882-02-07 18:22:00 Test Item Value Reference Range Interpretation Comments T-Spot Pnl A Neg Ctrl Corrected (test TNP code = T-Spot Pnl A Neg Ctrl Corrected) [place] [address]-02-07 18:22:00 Test Item Value Reference Range Interpretation Comments T-Spot Pnl B Neg Ctrl Corrected (test TNP code = T-Spot Pnl B Neg Ctrl Corrected) [place] [address]-02-07 18:22:00 Test Item Value Reference Range Interpretation Comments T-Spot Neg Ctrl (test code = T-Spot Neg TNP Ctrl) [place] [address]-02-07 18:22:00 Test Item Value Reference Range Interpretation Comments T-Spot Pos Ctrl (test code = T-Spot Pos TNP Ctrl) [place] [address]-02-07 18:22:00 Test Item Value Reference Range Interpretation Comments Toxoplasma IgG (test code = Toxoplasma no gt IgG) [place] [address]-02-07 18:22:00 Test Item Value Reference Range Interpretation Comments Toxoplasma IgM (test code = Toxoplasma no gt IgM) [place] [address]-02-07 18:22:00 Test Item Value Reference Range Interpretation Comments Treponemal Ab (test code Non-Reactive = Treponemal Ab) 42(04/08/21 12:22 PM) [place] [address]-02-07 18:22:00 Test Item Value Reference Range Interpretation Comments Varicella IgG (test code = Varicella 2806.00 IgG) [facility]allenYhjmsdnJNXDPOKKAL2804-82-82 18:22:00 Test Item Value Reference Range Interpretation Comments Mumps IgG (test code = Mumps IgG) no gt [facility] McallenCtbvlxqILEUIJEQAE5208-29-82 18:22:00 Test Item Value Reference Range Interpretation Comments Rubella IgG (test code = Rubella IgG) no gt [facility] McallenKzuirdpSLGQPUXUWK9338-31-34 18:22:00 Test Item Value Reference Range Interpretation Comments Rubeola IgG (test code = Rubeola IgG) 204.00 [facility] McallenYpnfpvbDFSJNJ7264-25-21 18:22:00 Test Item Value Reference Range Interpretation Comments Trig (test code = Trig) 209 [facility] McallenRxbqlxwNJLNYL3335-91-16 18:22:00 Test Item Value Reference Range Interpretation Comments Chol (test code = Chol) 209 [facility] McallenOemsfglGKVOVH0653-97-08 18:22:00 Test Item Value Reference Range Interpretation Comments HDL (test code = HDL) 33 [facility] CenterCpvuoulWPRMPG6131-15-33 18:22:00 Test Item Value Reference Range Interpretation Comments CHD Risk (test code = CHD Risk) 6.33 1 4.00-7.30 [facility] McallenDnmbjjxNULTTG6306-02-98 18:22:00 Test Item Value Reference Range Interpretation Comments LDL (Calculated) (test code = LDL 134 (Calculated)) [facility] CenterAyaxateSAKEST5372-99-76 18:22:00 Test Item Value Reference Range Interpretation Comments VLDL (test code = VLDL) 42 1 [facility]annPARASITOLOG[facility] - TGMTJJDK3339-81-01 18:22:00 Test Item Value Reference Range Interpretation Comments Strongyloides Antibodies (test code NEGATIVE = Strongyloides Antibodies) [facility]enannPARATHYROID IXQRONE3927-80-27 18:22:00 Test Item Value Reference Range Interpretation Comments PTH Intact (test code = PTH Intact) 511.0 18.4-80.1 [facility]annREF[facility] LAB BZCXCIR9950-33-69 18:22:00 Test Item Value Reference Range Interpretation Comments Misc Quest (test code = Misc Quest) [facility] CHHFLKPMN4163-35-22 18:22:00 Test Item Value Reference Range Interpretation Comments Nicotine Lvl (test code = Nicotine Lvl) no gt [facility] CenterSPECIAL QUJFLEYLW2077-56-02 18:22:00 Test Item Value Reference Range Interpretation Comments Cotinine Lvl (test code = Cotinine Lvl) no gt [facility] GCHDLPPLA1270-09-71 18:22:00 Test Item Value Reference Range Interpretation Comments Hgb A1C (test code = Hgb A1C) 5.7 [facility] WFAUOFPHT8099-29-29 18:22:00 Test Item Value Reference Range Interpretation Comments PSA (test code = PSA) 2.26 [facility] ZFBEKNVO3099-33-47 18:22:00 Test Item Value Reference Range Interpretation Comments T cruzi (Chagas) Ab (test code = NONREACTIVE T cruzi (Chagas) Ab) [facility]2022-02-07 18:22:00 Test Item Value Reference Range Interpretation Comments W Nile Ab IgG (test code = W Nile Ab no gt IgG) [facility]2022-02-07 18:22:00 Test Item Value Reference Range Interpretation Comments W Nile Ab IgM (test code = W Nile Ab no gt IgM) [facility]2022-02-07 18:22:00 Test Item Value Reference Range Interpretation Comments Ferritin Lvl (test code = Ferritin Lvl) 498 22275 [facility]2022-02-07 18:22:00 Test Item Value Reference Range Interpretation Comments Iron (test code = Iron) 84 [facility]2022-02-07 18:22:00 Test Item Value Reference Range Interpretation Comments TIBC (test code = TIBC) 276 [facility]2022-02-07 18:22:00 Test Item Value Reference Range Interpretation Comments % Satur Fe (test code = % Satur Fe) 30 [facility]2022-02-07 18:22:00 Test Item Value Reference Range Interpretation Comments Creatinine Lvl (test code = Creatinine 6.07 0.50-1.40 Lvl) [facility]2022-02-07 18:22:00 Test Item Value Reference Range Interpretation Comments eGFR (test code = eGFR) 9 [facility]2022-02-07 18:22:00 Test Item Value Reference Range Interpretation Comments Glucose Lvl (test code = Glucose Lvl) 75 70-99 [place] 435752-02-07 18:22:00 Test Item Value Reference Range Interpretation Comments BUN (test code = BUN) 39 7-22 [place] 435752-02-07 18:22:00 Test Item Value Reference Range Interpretation Comments Creatinine Lvl (test code = Creatinine 6.00 0.50-1.40 Lvl) [place] 435752-02-07 18:22:00 Test Item Value Reference Range Interpretation Comments Sodium Lvl (test code = Sodium Lvl) 139 135-145 [place] 435752-02-07 18:22:00 Test Item Value Reference Range Interpretation Comments Potassium Lvl (test code = Potassium 3.9 3.5-5.1 Lvl) [place] [address]-02-07 18:22:00 Test Item Value Reference Range Interpretation Comments Chloride Lvl (test code = Chloride Lvl) 104 95-109 [place] 435752-02-07 18:22:00 Test Item Value Reference Range Interpretation Comments CO2 (test code = CO2) 29 24-32 [place] 435752-02-07 18:22:00 Test Item Value Reference Range Interpretation Comments Calcium Lvl (test code = Calcium Lvl) 9.8 8.5-10.5 [place] 435752-02-07 18:22:00 Test Item Value Reference Range Interpretation Comments Total Protein (test code = Total 7.3 6.4-8.4 Protein) [place] 435752-02-07 18:22:00 Test Item Value Reference Range Interpretation Comments Albumin Lvl (test code = Albumin Lvl) 3.5 3.5-5.0 [place] 435752-02-07 18:22:00 Test Item Value Reference Range Interpretation Comments ALT (test code = ALT) 20 See_Comment [Auto mated message] The system which [employer] nerated this result transmit nicko reference range : <=65. The reference range was not used to interpr et this result as adebayo l/abnormal. [place] 435752-02-07 18:22:00 Test Item Value Reference Range Interpretation Comments AST (test code = AST) 9 See_Comment [Auto mated message] The system which ge nerated this result transmit nicko reference range : <=37. The reference range was not used to interpr et this result as adebayo l/abnormal. [place] 435752-02-07 18:22:00 Test Item Value Reference Range Interpretation Comments Alk Phos (test code = Alk Phos) 67 39-136 [facility] [id number] 18:22:00 Test Item Value Reference Range Interpretation Comments Bili Total (test code = Bili Total) 0.4 0.2-1.3 [facility] [id number] 18:22:00 Test Item Value Reference Range Interpretation Comments AGAP (test code = AGAP) 9.9 10.0-20.0 [facility] [employer] [id number] 18:22:00 Test Item Value Reference Range Interpretation Comments B/C Ratio (test code = B/C Ratio) 6 1 6-25 [facility] [id number] 18:22:00 Test Item Value Reference Range Interpretation Comments Globulin (test code = Globulin) 3.8 2.7-4.2 [facility] [employer] [id number] 18:22:00 Test Item Value Reference Range Interpretation Comments A/G Ratio (test code = A/G Ratio) 0.9 1 0.7-1.6 [facility] [employer] [id number] 18:22:00 Test Item Value Reference Range Interpretation Comments eGFR (test code = eGFR) 9 [facility] [id number] 18:22:00 Test Item Value Reference Range Interpretation Comments Magnesium Lvl (test code = Magnesium 1.6 1.8-2.4 Lvl) [facility] [id number] 18:22:00 Test Item Value Reference Range Interpretation Comments Phosphorus (test code = Phosphorus) 4.7 2.5-4.5 [facility] [employer] [id number] 18:22:00 Test Item Value Reference Range Interpretation Comments Uric Acid (test code = Uric Acid) 4.9 3.8-8.0 [facility] [employer] [id number] 18:22:00 Test Item Value Reference Range Interpretation Comments Vitamin D, 25-OH, Total (test code = 29 Vitamin D, 25-OH, Total) [facility] [id number] 18:22:00 Test Item Value Reference Range Interpretation Comments Opiate Qnt (test code = Opiate Qnt) Negative [facility] [id number] 18:22:00 Test Item Value Reference Range Interpretation Comments Kaitlin Scr (test code = Kaitlin Scr) Negative [facility] [id number] 18:22:00 Test Item Value Reference Range Interpretation Comments Cannab Scr (test code = Cannab Scr) Negative [facility] [id number] 18:22:00 Test Item Value Reference Range Interpretation Comments Methadone Scr (test code = Methadone Negative Scr) [facility] [id number] 18:22:00 Test Item Value Reference Range Interpretation Comments Cocaine Scr (test code = Cocaine Negative Scr) [facility] [id number] 18:22:00 Test Item Value Reference Range Interpretation Comments Benzodiaz Scr (test code = Benzodiaz Negative Scr) [facility] [id number] 18:22:00 Test Item Value Reference Range Interpretation Comments Amph Scr (test code = Amph Scr) Negative [facility] [id number] 18:22:00 Test Item Value Reference Range Interpretation Comments Opiate Scr (test code = Opiate Scr) Positive [facility] [id number] 18:22:00 Test Item Value Reference Range Interpretation Comments 6-Acetylmor Scr (test code = Negative 6-Acetylmor Scr) [facility] - [id number] 18:22:00 Test Item Value Reference Range Interpretation Comments Cryptococcal Ag (test Negative (04/08/21 code = Cryptococcal Ag) 12:22 PM) [facility] - [id number] 18:22:00 Test Item Value Reference Range Interpretation Comments Histo Yeast Ab (test code = Histo Yeast 1:16 Ab) [facility] - [id number] 18:22:00 Test Item Value Reference Range Interpretation Comments Histo mycel Ab (test code = Histo mycel 1:8 Ab) [facility] [id number] 18:22:00 Test Item Value Reference Range Interpretation Comments Blastomyces Ab (test code = NEGATIVE Blastomyces Ab) [facility] [id number] 18:22:00 Test Item Value Reference Range Interpretation Comments Coccid Ab IgM (test code = Coccid Ab NEGATIVE IgM) [facility] [id number] 18:22:00 Test Item Value Reference Range Interpretation Comments Coccid Ab IgG (test code = Coccid Ab NEGATIVE IgG) [place] 045032-02-07 18:22:00 Test Item Value Reference Range Interpretation Comments Segs (test code = Segs) 69.3 45.0-75.0 [place] [address]-02-07 18:22:00 Test Item Value Reference Range Interpretation Comments Lymphocytes (test code = Lymphocytes) 22.3 20.0-40.0 [place] [address]-02-07 18:22:00 Test Item Value Reference Range Interpretation Comments Monocytes (test code = Monocytes) 4.8 2.0-12.0 [place] [address]-02-07 18:22:00 Test Item Value Reference Range Interpretation Comments Eosinophils (test code = 3.0 See_Comment [A utomated message] The Eosinophils) system which ge nerated this result tra nsmitted reference range : <=4.0. The reference r carlos was not used to int erpret this result as normal/abnormal . [place] [address]-02-07 18:22:00 Test Item Value Reference Range Interpretation Comments Basophils (test code = 0.6 See_Comment [Aut omated message] The Basophils) system which ge nerated this result tra nsmitted reference range : <=1.0. The reference r carlos was not used to int erpret this result as normal/abnormal . [place] 045032-02-07 18:22:00 Test Item Value Reference Range Interpretation Comments Neutrophils # (test code = Neutrophils 5.6 1.5-8.1 #) [place] 045032-02-07 18:22:00 Test Item Value Reference Range Interpretation Comments Lymphocytes # (test code = Lymphocytes 1.8 1.0-5.5 #) [place] 045032-02-07 18:22:00 Test Item Value Reference Range Interpretation Comments Monocytes # (test code 0.4 See_Comment [Aut omated message] The = Monocytes #) system which generated this result tra nsmitted reference range : <=0.8. The reference r carlos was not used to int erpret this result as normal/abnormal . [place] [address]-02-07 18:22:00 Test Item Value Reference Range Interpretation Comments Eosinophils # (test code 0.2 See_Comment [A utomated message] The = Eosinophils #) system whic h generated this result tra nsmitted reference range : <=0.5. The reference r carlos was not used to int erpret this result as normal/abnormal . [place] 045032-02-07 18:22:00 Test Item Value Reference Range Interpretation Comments PT (test code = PT) 12.6 s 12.0-14.7 [place] [address]-02-07 18:22:00 Test Item Value Reference Range Interpretation Comments INR (test code = INR) 0.95 1 0.85-1.17 [place] [address]-02-07 18:22:00 Test Item Value Reference Range Interpretation Comments PTT (test code = PTT) 32.2 s 22.9-35.8 [place] 045032-02-07 18:22:00 Test Item Value Reference Range Interpretation Comments TEG Interp (test Thrombelastograph results code = TEG show increased values of Interp) both Angle Alpha and MA. These findings are suggestive of platelet hypercoagulation. CPT:47119 [place] 045032-02-07 18:22:00 Test Item Value Reference Range Interpretation Comments R-time (test code = R-time) 6.0 min 5.0-10.0 [place] [address]-02-07 18:22:00 Test Item Value Reference Range Interpretation Comments K-time (test code = K-time) 1.1 min 1.0-3.0 [place] [address]-02-07 18:22:00 Test Item Value Reference Range Interpretation Comments Angle (test code = Angle) 74.1 degrees 53.0-72.0 [place] [address]-02-07 18:22:00 Test Item Value Reference Range Interpretation Comments Max Amp (test code = Max Amp) 73.3 mm 50.0-70.0 [place] 045032-02-07 18:22:00 Test Item Value Reference Range Interpretation Comments G-value (test code = G-value) 13.7 4.5-11.0 [place] [address]-02-07 18:22:00 Test Item Value Reference Range Interpretation Comments Ly30 (test code = 0.0 See_Comment [Automate d message] The Ly30) system which ge nerated this result transmit nicko reference range : <=7.5. The reference range was not used to interpr et this result as adebayo l/abnormal. [facility] HospitalPnletqlANQCZLNILW7336-47-54 18:22:00 Test Item Value Reference Range Interpretation Comments Coag Index (test code 2.5 1 See_Comment [Auto mated message] The = Coag Index) system which g enerated this result transmit nicko reference range : <=3.0. The reference range was not used to interpr et this result as adebayo l/abnormal. [place] 045032-02-07 18:22:00 Test Item Value Reference Range Interpretation Comments TEG Data (test code = See Note (04/08/21 12:22 TEG Data) PM) [place] 045032-02-07 18:22:00 Test Item Value Reference Range Interpretation Comments WBC (test code = WBC) 8.0 3.7-10.4 [place] 045032-02-07 18:22:00 Test Item Value Reference Range Interpretation Comments RBC (test code = RBC) 3.87 4.70-6.10 [place] 045032-02-07 18:22:00 Test Item Value Reference Range Interpretation Comments Hgb (test code = Hgb) 12.0 14.0-18.0 [place] 045032-02-07 18:22:00 Test Item Value Reference Range Interpretation Comments Hct (test code = Hct) 37.0 42.0-54.0 [place] [address]-02-07 18:22:00 Test Item Value Reference Range Interpretation Comments MCV (test code = MCV) 95.8 80.0-94.0 [place] 045032-02-07 18:22:00 Test Item Value Reference Range Interpretation Comments MCH (test code = MCH) 31.1 pg 27.0-31.0 [place] [address]-02-07 18:22:00 Test Item Value Reference Range Interpretation Comments MCHC (test code = MCHC) 32.4 32.0-36.0 [place] 045032-02-07 18:22:00 Test Item Value Reference Range Interpretation Comments RDW (test code = RDW) 15.1 11.5-14.5 [place] 045032-02-07 18:22:00 Test Item Value Reference Range Interpretation Comments Platelet (test code = Platelet) 255 133-450 [facility] CenterZkusayfWFZGXGDASR0240-16-18 18:22:00 Test Item Value Reference Range Interpretation Comments MPV (test code = MPV) 8.7 7.4-10.4 [facility] CenterDsxahdeUYOKOLBBUE8438-72-42 18:22:00 Test Item Value Reference Range Interpretation Comments KAREN Ser Pattern A distinct monoclonal (test code = KAREN Ser band is present in the Pattern) IgM izabella with a corresponding distinct band in the kappa light chain izabella. The polyclonal gamma globulin background is preserved in all lanes. [facility] CenterDsefuaePUMALYKEHS8880-01-02 18:22:00 Test Item Value Reference Range Interpretation [...] and concur with the resident's interpretation. CPT 37316-GR [facility] CenterFbagbtmATGIJNZCAU5812-63-68 18:22:00 Test Item Value Reference Range Interpretation Comments Cystatin C (test code = Cystatin C) 5.38 [facility] CenterSppcuacMWXUZLMMZU1274-02-68 18:22:00 Test Item Value Reference Range Interpretation Comments eGFR Cystatin-based (test code = eGFR 8 Cystatin-based) [facility]prIJTABJUNVO7673-35-94 18:22:00 Test Item Value Reference Range Interpretation Comments Albumin % (test code = Albumin %) 54.2 55.8-66.1 [facility] CenterUdbklnnSPGVQUOOLD9736-48-41 18:22:00 Test Item Value Reference Range Interpretation Comments Alpha 1 % (test code = Alpha 1 %) 5.8 2.8-4.9 [facility] CenterYrlxzpzNKXUYOHHRN9424-24-65 18:22:00 Test Item Value Reference Range Interpretation Comments Alpha 2 % (test code = Alpha 2 %) 12.8 7.0-11.9 [facility] CenterGrtcuaqSEXAAHYVSZ7733-33-60 18:22:00 Test Item Value Reference Range Interpretation Comments Beta % (test code = Beta %) 11.7 7.8-13.7 [place] 123882-02-07 18:22:00 Test Item Value Reference Range Interpretation Comments Gamma % (test code = Gamma %) 15.5 11.1-18.7 [facility] CenterLyfuevyEKFGVZJWGC8906-60-85 18:22:00 Test Item Value Reference Range Interpretation Comments Albumin (SPE) (test code = Albumin 3.96 3.57-5.55 (SPE)) [facility] CenterGumgxssPVFHEMIPTB2903-39-56 18:22:00 Test Item Value Reference Range Interpretation Comments Alpha 1 Glob (test code = Alpha 1 Glob) 0.42 0.18-0.41 [facility]uevxuxOUNAKNFZUU5750-97-06 18:22:00 Test Item Value Reference Range Interpretation Comments Alpha 2 Glob (test code = Alpha 2 Glob) 0.93 0.45-1.00 [facility] CenterMbbuxqzTWFSMUOXWP4076-75-62 18:22:00 Test Item Value Reference Range Interpretation Comments Beta Glob (test code = Beta Glob) 0.85 0.50-1.15 [facility] CenterKqkkamjQDQWJCQGYA1205-83-86 18:22:00 Test Item Value Reference Range Interpretation Comments Gamma Glob (test code = Gamma Glob) 1.13 0.71-1.57 [facility] CenterCbxxcuxFRWIYTCJSA7418-59-86 18:22:00 Test Item Value Reference Range Interpretation Comments Tot Prot (SPE) (test code = Tot Prot 7.3 6.4-8.4 (SPE)) [facility] CenterUiiiwybCYOKCJUZOU9541-83-24 18:22:00 Test Item Value Reference Range Interpretation [...] and concur with the resident's interpretation. CPT 65477-XL [facility] CenterYwocclkMPCJOMWQGP4132-14-52 18:22:00 Test Item Value Reference Range Interpretation Comments Rennert Free Light Chains (test code = 122.3 Rennert Free Light Chains) [facility] CenterTpciskjQCFSUBEDZI6359-00-00 18:22:00 Test Item Value Reference Range Interpretation Comments Lambda Free Light Chains (test code = 74.0 Lambda Free Light Chains) [facility] CenterCxjghdfNNZSYNNEKB8623-37-42 18:22:00 Test Item Value Reference Range Interpretation Comments Rennert/Lambda Free Light Chains Ratio 1.65 1 (test code = Rennert/Lambda Free Light Chains Ratio) [place] [address]-02-07 18:22:00 Test Item Value Reference Range Interpretation Comments CMV IgG (test code = CMV IgG) no gt [place] 123882-02-07 18:22:00 Test Item Value Reference Range Interpretation Comments EBV VCA IgG (test code = EBV VCA IgG) 239.00 [place] 123882-02-07 18:22:00 Test Item Value Reference Range Interpretation Comments HIV Ag/Ab 4th Gen Negative *NA*(04/08/21 (test code = HIV 12:22 PM) Ag/Ab 4th Gen) [place] [address]-02-07 18:22:00 Test Item Value Reference Range Interpretation Comments Hep A Tot (test code = Hep A Tot) REACTIVE [place] 123882-02-07 18:22:00 Test Item Value Reference Range Interpretation Comments Hep Bs Ab (test code = Hep Bs Ab) [facility]t [facility]urwzpyOEPOTKZNLX2340-10-55 18:22:00 Test Item Value Reference Range Interpretation Comments Hep B Core Ab (test code = Hep B NON-REACTIVE Core Ab) [place] 123882-02-07 18:22:00 Test Item Value Reference Range Interpretation Comments Hep Bs Ag (test code Negative *NA*(04/08/21 = Hep Bs Ag) 12:22 PM) [place] 123882-02-07 18:22:00 Test Item Value Reference Range Interpretation Comments Hep C Ab (test code = Hep C Ab) NON-REACTIVE [place] [address]-02-07 18:22:00 Test Item Value Reference Range Interpretation Comments Hep Signal to Cut-Off (test code = Hep 0.01 1 Signal to Cut-Off) [place] [address]-02-07 18:22:00 Test Item Value Reference Range Interpretation Comments HSV 1 IgG (test code = HSV 1 IgG) 26.60 [place] [address]-02-07 18:22:00 Test Item Value Reference Range Interpretation Comments HSV 2 IgG (test code = HSV 2 IgG) no gt [place] 123882-02-07 18:22:00 Test Item Value Reference Range Interpretation Comments T-Spot.TB (test code = T-Spot.TB) [facility]NP [facility] TylerZmjdxucDGUOFXMUDG9574-75-39 18:22:00 Test Item Value Reference Range Interpretation Comments T-Spot Pnl A Neg Ctrl Corrected (test TNP code = T-Spot Pnl A Neg Ctrl Corrected) [facility] TylerGfwftbyHYSNYXBLKL2962-84-37 18:22:00 Test Item Value Reference Range Interpretation Comments T-Spot Pnl B Neg Ctrl Corrected (test TNP code = T-Spot Pnl B Neg Ctrl Corrected) [facility] TylerPbefjlqIAOLHPLDYN6211-59-33 18:22:00 Test Item Value Reference Range Interpretation Comments T-Spot Neg Ctrl (test code = T-Spot Neg TNP Ctrl) [facility] TylerYicdnqqNXAWFGXGNU6581-48-66 18:22:00 Test Item Value Reference Range Interpretation Comments T-Spot Pos Ctrl (test code = T-Spot Pos TNP Ctrl) [facility] TylerZixwhvfDRSOPJMEEJ1051-62-34 18:22:00 Test Item Value Reference Range Interpretation Comments Toxoplasma IgG (test code = Toxoplasma no gt IgG) [facility] TylerRcqlqpxRUYBICNBFG4118-35-92 18:22:00 Test Item Value Reference Range Interpretation Comments Toxoplasma IgM (test code = Toxoplasma no gt IgM) [facility] TylerGzcdeamMGLQLOXFPD0614-75-13 18:22:00 Test Item Value Reference Range Interpretation Comments Treponemal Ab (test code Non-Reactive = Treponemal Ab) 42(04/08/21 12:22 PM) [facility] TylerNsksjxsFHASRVKKTM1221-78-76 18:22:00 Test Item Value Reference Range Interpretation Comments Varicella IgG (test code = Varicella 2806.00 IgG) [facility] TylerSpascnhEHAOSDCETF5660-28-78 18:22:00 Test Item Value Reference Range Interpretation Comments Mumps IgG (test code = Mumps IgG) no gt [facility] TylerGbpcfwcUIDWJVVDHL0870-00-70 18:22:00 Test Item Value Reference Range Interpretation Comments Rubella IgG (test code = Rubella IgG) no gt [facility] TylerFiinekrWZJKYAHFKJ7733-51-92 18:22:00 Test Item Value Reference Range Interpretation Comments Rubeola IgG (test code = Rubeola IgG) 204.00 [facility]XWKB6776[facility]77[facility] 18:22:00 Test Item Value Reference Range Interpretation Comments Trig (test code = Trig) 209 [facility] TexasQoayxijRHDBPE5014-74-26 18:22:00 Test Item Value Reference Range Interpretation Comments Chol (test code = Chol) 209 [facility]enJmicmbpFHBIHP3334-20-63 18:22:00 Test Item Value Reference Range Interpretation Comments HDL (test code = HDL) 33 [facility]nonsruCCZMGN8166-84-65 18:22:00 Test Item Value Reference Range Interpretation Comments CHD Risk (test code = CHD Risk) 6.33 1 4.00-7.30 [facility] VefptkaXMCYLP4251-50-79 18:22:00 Test Item Value Reference Range Interpretation Comments LDL (Calculated) (test code = LDL 134 (Calculated)) [facility]enOjwqojxEOUAQH2451-10-59 18:22:00 Test Item Value Reference Range Interpretation Comments VLDL (test code = VLDL) 42 1 [facility] - VRJZCDBG1249-24-03 18:22:00 Test Item Value Reference Range Interpretation Comments Strongyloides Antibodies (test code NEGATIVE = Strongyloides Antibodies) [facility]enannPARATHYROID NYFIEYR3043-65-02 18:22:00 Test Item Value Reference Range Interpretation Comments PTH Intact (test code = PTH Intact) 511.0 18.4-80.1 [facility] XJPZWMG4118-60-03 18:22:00 Test Item Value Reference Range Interpretation Comments Misc Quest (test code = Misc Quest) REPORT [facility] TAEJGTXAW6687-68-15 18:22:00 Test Item Value Reference Range Interpretation Comments Nicotine Lvl (test code = Nicotine Lvl) no gt [facility]annSPE[facility] SBPRTJMUB0038-55-14 18:22:00 Test Item Value Reference Range Interpretation Comments Cotinine Lvl (test code = Cotinine Lvl) no gt [facility] AJUQCMDMW0385-58-68 18:22:00 Test Item Value Reference Range Interpretation Comments Hgb A1C (test code = Hgb A1C) 5.7 [facility] TNJMXPEBE7618-10-73 18:22:00 Test Item Value Reference Range Interpretation Comments PSA (test code = PSA) 2.26 [facility] - [id number] 18:22:00 Test Item Value Reference Range Interpretation Comments T cruzi (Chagas) Ab (test code = NONREACTIVE T cruzi (Chagas) Ab) [facility] - [id number] 18:22:00 Test Item Value Reference Range Interpretation Comments W Nile Ab IgG (test code = W Nile Ab no gt IgG) [facility] - [id number] 18:22:00 Test Item Value Reference Range Interpretation Comments W Nile Ab IgM (test code = W Nile Ab no gt IgM) [facility]2022-02-07 18:22:00 Test Item Value Reference Range Interpretation Comments Ferritin Lvl (test code = Ferritin Lvl) 498 22-275 [facility]2022-02-07 18:22:00 Test Item Value Reference Range Interpretation Comments Iron (test code = Iron) 84 [facility]2022-02-07 18:22:00 Test Item Value Reference Range Interpretation Comments TIBC (test code = TIBC) 276 [facility]2022-02-07 18:22:00 Test Item Value Reference Range Interpretation Comments % Satur Fe (test code = % Satur Fe) 30 [facility]2022-02-07 18:22:00 Test Item Value Reference Range Interpretation Comments Creatinine Lvl (test code = Creatinine 6.07 0.50-1.40 Lvl) [facility]2022-02-07 18:22:00 Test Item Value Reference Range Interpretation Comments eGFR (test code = eGFR) 9 [facility]2022-02-07 18:22:00 Test Item Value Reference Range Interpretation Comments Glucose Lvl (test code = Glucose Lvl) 75 70-99 [facility]2022-02-07 18:22:00 Test Item Value Reference Range Interpretation Comments BUN (test code = BUN) 39 7-22 [place] 435752-02-07 18:22:00 Test Item Value Reference Range Interpretation Comments Creatinine Lvl (test code = Creatinine 6.00 0.50-1.40 Lvl) [facility]2022-02-07 18:22:00 Test Item Value Reference Range Interpretation Comments Sodium Lvl (test code = Sodium Lvl) 139 135-145 [facility]2022-02-07 18:22:00 Test Item Value Reference Range Interpretation Comments Potassium Lvl (test code = Potassium 3.9 3.5-5.1 Lvl) [facility]2022-02-07 18:22:00 Test Item Value Reference Range Interpretation Comments Chloride Lvl (test code = Chloride Lvl) 104 95-109 [facility] [id number] 18:22:00 Test Item Value Reference Range Interpretation Comments CO2 (test code = CO2) 29 24-32 [facility] [id number] 18:22:00 Test Item Value Reference Range Interpretation Comments Calcium Lvl (test code = Calcium Lvl) 9.8 8.5-10.5 [facility] [id number] 18:22:00 Test Item Value Reference Range Interpretation Comments Total Protein (test code = Total 7.3 6.4-8.4 Protein) [facility] [id number] 18:22:00 Test Item Value Reference Range Interpretation Comments Albumin Lvl (test code = Albumin Lvl) 3.5 3.5-5.0 [facility] [id number] 18:22:00 Test Item Value Reference Range Interpretation Comments ALT (test code = ALT) 20 See_Comment [Auto mated message] The system which ge nerated this result transmit nicko reference range : <=65. The reference range was not used to interpr et this result as adebayo l/abnormal. [facility] [id number] 18:22:00 Test Item Value Reference Range Interpretation Comments AST (test code = AST) 9 See_Comment [Auto mated message] The system which ge nerated this result transmit nicko reference range : <=37. The reference range was not used to interpr et this result as adebayo l/abnormal. [facility] [id number] 18:22:00 Test Item Value Reference Range Interpretation Comments Alk Phos (test code = Alk Phos) 67 39-136 [facility] [id number] 18:22:00 Test Item Value Reference Range Interpretation Comments Bili Total (test code = Bili Total) 0.4 0.2-1.3 [facility] [id number] 18:22:00 Test Item Value Reference Range Interpretation Comments AGAP (test code = AGAP) 9.9 10.0-20.0 [facility] [id number] 18:22:00 Test Item Value Reference Range Interpretation Comments B/C Ratio (test code = B/C Ratio) 6 1 6-25 [facility] [id number] 18:22:00 Test Item Value Reference Range Interpretation Comments Globulin (test code = Globulin) 3.8 2.7-4.2 [facility] [id number] 18:22:00 Test Item Value Reference Range Interpretation Comments A/G Ratio (test code = A/G Ratio) 0.9 1 0.7-1.6 [facility] [id number] 18:22:00 Test Item Value Reference Range Interpretation Comments eGFR (test code = eGFR) 9 [facility] [id number] 18:22:00 Test Item Value Reference Range Interpretation Comments Magnesium Lvl (test code = Magnesium 1.6 1.8-2.4 Lvl) [facility] [id number] 18:22:00 Test Item Value Reference Range Interpretation Comments Phosphorus (test code = Phosphorus) 4.7 2.5-4.5 [facility] [id number] 18:22:00 Test Item Value Reference Range Interpretation Comments Uric Acid (test code = Uric Acid) 4.9 3.8-8.0 [facility] [id number] 18:22:00 Test Item Value Reference Range Interpretation Comments Vitamin D, 25-OH, Total (test code = 29 Vitamin D, 25-OH, Total) [facility] [id number] 18:22:00 Test Item Value Reference Range Interpretation Comments Opiate Qnt (test code = Opiate Qnt) Negative [facility] [id number] 18:22:00 Test Item Value Reference Range Interpretation Comments Kaitlin Scr (test code = Kaitlin Scr) Negative [facility] [id number] 18:22:00 Test Item Value Reference Range Interpretation Comments Cannab Scr (test code = Cannab Scr) Negative [facility] [id number] 18:22:00 Test Item Value Reference Range Interpretation Comments Methadone Scr (test code = Methadone Negative Scr) [facility] [id number] 18:22:00 Test Item Value Reference Range Interpretation Comments Cocaine Scr (test code = Cocaine Negative Scr) [facility] [id number] 18:22:00 Test Item Value Reference Range Interpretation Comments Benzodiaz Scr (test code = Benzodiaz Negative Scr) [facility] [id number] 18:22:00 Test Item Value Reference Range Interpretation Comments Amph Scr (test code = Amph Scr) Negative [facility] [id number] 18:22:00 Test Item Value Reference Range Interpretation Comments Opiate Scr (test code = Opiate Scr) Positive [facility] [id number] 18:22:00 Test Item Value Reference Range Interpretation Comments 6-Acetylmor Scr (test code = Negative 6-Acetylmor Scr) [facility]2022-02-07 18:22:00 Test Item Value Reference Range Interpretation Comments Cryptococcal Ag (test Negative (04/08/21 code = Cryptococcal Ag) 12:22 PM) [facility]2022-02-07 18:22:00 Test Item Value Reference Range Interpretation Comments Histo Yeast Ab (test code = Histo Yeast 1:16 Ab) [facility]2022-02-07 18:22:00 Test Item Value Reference Range Interpretation Comments Histo mycel Ab (test code = Histo mycel 1:8 Ab) [facility]2022-02-07 18:22:00 Test Item Value Reference Range Interpretation Comments Blastomyces Ab (test code = NEGATIVE Blastomyces Ab) [facility]2022-02-07 18:22:00 Test Item Value Reference Range Interpretation Comments Coccid Ab IgM (test code = Coccid Ab NEGATIVE IgM) [facility]2022-02-07 18:22:00 Test Item Value Reference Range Interpretation Comments Coccid Ab IgG (test code = Coccid Ab NEGATIVE IgG) [facility] H[id number] 18:22:00 Test Item Value Reference Range Interpretation Comments Segs (test code = Segs) 69.3 45.0-75.[address] [facility] HospitalGglysluFDKZSNRUBC5993-90-28 18:22:00 Test Item Value Reference Range Interpretation Comments Lymphocytes (test code = Lymphocytes) 22.3 20.0-40.[address] [facility] HospitalUphekzoSKJOUSEOKI0133-84-93 18:22:00 Test Item Value Reference Range Interpretation Comments Monocytes (test code = Monocytes) 4.8 2.0-12.[address] [facility] Hospit[id number] 18:22:00 Test Item Value Reference Range Interpretation Comments Eosinophils (test code = 3.0 See_Comment [A utomated message] The Eosinophils) system which ge nerated this result tra nsmitted reference range : <=4.0. The reference r carlos was not used to int erpret this result as normal/abnormal . [facility] H[id number] 18:22:00 Test Item Value Reference Range Interpretation Comments Basophils (test code = 0.6 See_Comment [Aut omated message] The Basophils) system which ge nerated this result tra nsmitted reference range : <=1.0. The reference r carlos was not used to int erpret this result as normal/abnormal . [facility] HospitalMixudhsNYGECWUHLY0841-21-21 18:22:00 Test Item Value Reference Range Interpretation Comments Neutrophils # (test code = Neutrophils 5.6 1.5-8.1 #) [facility] HospitalIuevyjjYQPVMPVKOV4851-71-63 18:22:00 Test Item Value Reference Range Interpretation Comments Lymphocytes # (test code = Lymphocytes 1.8 1.0-5.5 #) [facility] HospitalUfcbngxICMCPNOITU3068-15-07 18:22:00 Test Item Value Reference Range Interpretation Comments Monocytes # (test code 0.4 See_Comment [Aut omated message] The = Monocytes #) system which generated this result tra nsmitted reference range : <=0.8. The reference r carlos was not used to int erpret this result as normal/abnormal . [facility] HospitalLmsrnnfIYHXZERQOU0018-34-44 18:22:00 Test Item Value Reference Range Interpretation Comments Eosinophils # (test code 0.2 See_Comment [A utomated message] The = Eosinophils #) system whic h generated this result tra nsmitted reference range : <=0.5. The reference r carlos was not used to int erpret this result as normal/abnormal . [facility] HospitalPpsiumzCGBFXDVBVE1106-33-81 18:22:00 Test Item Value Reference Range Interpretation Comments PT (test code = PT) 12.6 s 12.0-14.7 [place] 045032-02-07 18:22:00 Test Item Value Reference Range Interpretation Comments INR (test code = INR) 0.95 1 0.85-1.17 [place] 045032-02-07 18:22:00 Test Item Value Reference Range Interpretation Comments PTT (test code = PTT) 32.2 s 22.9-35.8 [place] 045032-02-07 18:22:00 Test Item Value Reference Range Interpretation Comments TEG Interp (test Thrombelastograph results code = TEG show increased values of Interp) both Angle Alpha and MA. These findings are suggestive of platelet hypercoagulation. CPT:57928 [place] 045032-02-07 18:22:00 Test Item Value Reference Range Interpretation Comments R-time (test code = R-time) 6.0 min 5.0-10.0 [place] 045032-02-07 18:22:00 Test Item Value Reference Range Interpretation Comments K-time (test code = K-time) 1.1 min 1.0-3.0 [place] 045032-02-07 18:22:00 Test Item Value Reference Range Interpretation Comments Angle (test code = Angle) 74.1 degrees 53.0-72.0 [place] 045032-02-07 18:22:00 Test Item Value Reference Range Interpretation Comments Max Amp (test code = Max Amp) 73.3 mm 50.0-70.0 [place] 045032-02-07 18:22:00 Test Item Value Reference Range Interpretation Comments G-value (test code = G-value) 13.7 4.5-11.0 [place] 045032-02-07 18:22:00 Test Item Value Reference Range Interpretation Comments Ly30 (test code = 0.0 See_Comment [Automate d message] The Ly30) system which ge nerated this result transmit nicko reference range : <=7.5. The reference range was not used to interpr et this result as adebayo l/abnormal. [facility] HospitalGtrykriVJHRWPFYCQ4186-16-15 18:22:00 Test Item Value Reference Range Interpretation Comments Coag Index (test code 2.5 1 See_Comment [Auto mated message] The = Coag Index) system which g enerated this result transmit nicko reference range : <=3.0. The reference range was not used to interpr et this result as adebayo l/abnormal. [place] 045032-02-07 18:22:00 Test Item Value Reference Range Interpretation Comments TEG Data (test code = See Note (04/08/21 12:22 TEG Data) PM) [address]02-07 18:22:00 Test Item Value Reference Range Interpretation Comments WBC (test code = WBC) 8.0 3.7-10.4 [place] 045032-02-07 18:22:00 Test Item Value Reference Range Interpretation Comments RBC (test code = RBC) 3.87 4.70-6.[address] [facility] HospitalSpucywoOBEPEEHWLB3073-22-97 18:22:00 Test Item Value Reference Range Interpretation Comments Hgb (test code = Hgb) 12.0 14.0-18.0 [place] 045032-02-07 18:22:00 Test Item Value Reference Range Interpretation Comments Hct (test code = Hct) 37.0 42.0-54.0 [place] 045032-02-07 18:22:00 Test Item Value Reference Range Interpretation Comments MCV (test code = MCV) 95.8 80.0-94.0 [place] [address]-02-07 18:22:00 Test Item Value Reference Range Interpretation Comments MCH (test code = MCH) 31.1 pg 27.0-31.0 [place] 045032-02-07 18:22:00 Test Item Value Reference Range Interpretation Comments MCHC (test code = MCHC) 32.4 32.0-36.[address] HospitalWmurzkbQKUGTBIJAK7630-34-18 18:22:00 Test Item Value Reference Range Interpretation Comments RDW (test code = RDW) 15.1 11.5-14.5 [place] 045032-02-07 18:22:00 Test Item Value Reference Range Interpretation Comments Platelet (test code = Platelet) 255 133-[address] [facility] HospitalEpiqhzeUMSZXJYYET7949-05-09 18:22:00 Test Item Value Reference Range Interpretation Comments MPV (test code = MPV) 8.7 7.4-10.4 [place] 123882-02-07 18:22:00 Test Item Value Reference Range Interpretation Comments KAREN Ser Pattern A distinct monoclonal (test code = KAREN Ser band is present in the Pattern) IgM izabella with a corresponding distinct band in the kappa light chain izabella. The polyclonal gamma globulin background is preserved in all lanes. [place] 123882-02-07 18:22:00 Test Item Value Reference Range Interpretation [...] and concur with the resident's interpretation. CPT 58657-UG [place] 123882-02-07 18:22:00 Test Item Value Reference Range Interpretation Comments Cystatin C (test code = Cystatin C) 5.38 [place] 123882-02-07 18:22:00 Test Item Value Reference Range Interpretation Comments eGFR Cystatin-based (test code = eGFR 8 Cystatin-based) [place] 123882-02-07 18:22:00 Test Item Value Reference Range Interpretation Comments Albumin % (test code = Albumin %) 54.2 55.8-66.1 [place] 123882-02-07 18:22:00 Test Item Value Reference Range Interpretation Comments Alpha 1 % (test code = Alpha 1 %) 5.8 2.8-4.9 [place] [address]-02-07 18:22:00 Test Item Value Reference Range Interpretation Comments Alpha 2 % (test code = Alpha 2 %) 12.8 7.0-11.9 [place] [address]-02-07 18:22:00 Test Item Value Reference Range Interpretation Comments Beta % (test code = Beta %) 11.7 7.8-13.7 [place] [address]-02-07 18:22:00 Test Item Value Reference Range Interpretation Comments Gamma % (test code = Gamma %) 15.5 11.1-18.7 [place] [address]-02-07 18:22:00 Test Item Value Reference Range Interpretation Comments Albumin (SPE) (test code = Albumin 3.96 3.57-5.55 (SPE)) [place] [address]-02-07 18:22:00 Test Item Value Reference Range Interpretation Comments Alpha 1 Glob (test code = Alpha 1 Glob) 0.42 0.18-0.41 [place] [address]-02-07 18:22:00 Test Item Value Reference Range Interpretation Comments Alpha 2 Glob (test code = Alpha 2 Glob) 0.93 0.45-1.00 [facility]ipkpEKUJZPVAFP3901-32-52 18:22:00 Test Item Value Reference Range Interpretation Comments Beta Glob (test code = Beta Glob) 0.85 0.50-1.15 [facility] CenterCjypsrvYZZNARQSPE0782-43-83 18:22:00 Test Item Value Reference Range Interpretation Comments Gamma Glob (test code = Gamma Glob) 1.13 0.71-1.57 [facility] CenterCtopcitZNCVAVMPMI8882-57-88 18:22:00 Test Item Value Reference Range Interpretation Comments Tot Prot (SPE) (test code = Tot Prot 7.3 6.4-8.4 (SPE)) [facility]XBONSEAQTB1279[facility] 18:22:00 Test Item Value Reference Range Interpretation [...] and concur with the resident's interpretation. CPT 35204-[place] [facility] CenterJpthpfdNMRZCASMMP7332-40-49 18:22:00 Test Item Value Reference Range Interpretation Comments Rennert Free Light Chains (test code = 122.3 Rennert Free Light Chains) [facility] TylerMocrjmeZUJOWFSJDO4678-56-36 18:22:00 Test Item Value Reference Range Interpretation Comments Lambda Free Light Chains (test code = 74.0 Lambda Free Light Chains) [facility] CenterAfincyhXDVDCJSZTM4920-43-05 18:22:00 Test Item Value Reference Range Interpretation Comments Rennert/Lambda Free Light Chains Ratio 1.65 1 (test code = Rennert/Lambda Free Light Chains Ratio) [facility] CenterYgavqpdENZQBZOGSW7423-27-00 18:22:00 Test Item Value Reference Range Interpretation Comments CMV IgG (test code = CMV IgG) no gt [facility] CenterMnlnufcADGQGCRZQL9123-47-30 18:22:00 Test Item Value Reference Range Interpretation Comments EBV VCA IgG (test code = EBV VCA IgG) 239.00 [facility] CenterPsqlaioDMCKTXEOFD1211-87-80 18:22:00 Test Item Value Reference Range Interpretation Comments HIV Ag/Ab 4th Gen Negative *NA*(04/08/21 (test code = HIV 12:22 PM) Ag/Ab 4th Gen) [facility] TylerIiuxjlyLWTXHUCJZP0951-26-64 18:22:00 Test Item Value Reference Range Interpretation Comments Hep A Tot (test code = Hep A Tot) REACTIVE [facility] TylerMxeuuvkRGFZITRNUO6905-63-89 18:22:00 Test Item Value Reference Range Interpretation Comments Hep Bs Ab (test code = Hep Bs Ab) no gt [facility] TylerQxugulvGFSIUMNNJO3799-71-54 18:22:00 Test Item Value Reference Range Interpretation Comments Hep B Core Ab (test code = Hep B NON-REACTIVE Core Ab) [facility] TylerNhjndytYVDBRBEFIU0185-10-02 18:22:00 Test Item Value Reference Range Interpretation Comments Hep Bs Ag (test code Negative *NA*(04/08/21 = Hep Bs Ag) 12:22 PM) [place] 123882-02-07 18:22:00 Test Item Value Reference Range Interpretation Comments Hep C Ab (test code = Hep C Ab) NON-REACTIVE [place] 123882-02-07 18:22:00 Test Item Value Reference Range Interpretation Comments Hep Signal to Cut-Off (test code = Hep 0.01 1 Signal to Cut-Off) [facility] TylerBxdyzriOKOGDJGHLV8156-58-73 18:22:00 Test Item Value Reference Range Interpretation Comments HSV 1 IgG (test code = HSV 1 IgG) 26.60 [place] 123882-02-07 18:22:00 Test Item Value Reference Range Interpretation Comments HSV 2 IgG (test code = HSV 2 IgG) no gt [facility] TylerMmcjhjaETRHIQFDNQ1786-95-50 18:22:00 Test Item Value Reference Range Interpretation Comments T-Spot.TB (test code = T-Spot.TB) TNP [facility] TylerQqywzpvFFUCQIRFJT6587-19-21 18:22:00 Test Item Value Reference Range Interpretation Comments T-Spot Pnl A Neg Ctrl Corrected (test TNP code = T-Spot Pnl A Neg Ctrl Corrected) [facility] TylerPmakwdfITGYIIQXSS3550-23-22 18:22:00 Test Item Value Reference Range Interpretation Comments T-Spot Pnl B Neg Ctrl Corrected (test TNP code = T-Spot Pnl B Neg Ctrl Corrected) [facility] TylerRrnkjzcIBRZZQZLQY2185-60-05 18:22:00 Test Item Value Reference Range Interpretation Comments T-Spot Neg Ctrl (test code = T-Spot Neg TNP Ctrl) [facility] TylerSxjqoheZPOCDCXGMS0250-42-67 18:22:00 Test Item Value Reference Range Interpretation Comments T-Spot Pos Ctrl (test code = T-Spot Pos TNP Ctrl) [facility] TylerSslhbvtMAFVKFZKTP9583-67-77 18:22:00 Test Item Value Reference Range Interpretation Comments Toxoplasma IgG (test code = Toxoplasma no gt IgG) [facility] TylerQkosoijKWUOJZHBOT6424-00-16 18:22:00 Test Item Value Reference Range Interpretation Comments Toxoplasma IgM (test code = Toxoplasma no gt IgM) [place] 123882-02-07 18:22:00 Test Item Value Reference Range Interpretation Comments Treponemal Ab (test code Non-Reactive = Treponemal Ab) 42(04/08/21 12:22 PM) [place] 123882-02-07 18:22:00 Test Item Value Reference Range Interpretation Comments Varicella IgG (test code = Varicella 2806.00 IgG) [facility] TylerYrfhlpmACLQYRRCIW7251-10-65 18:22:00 Test Item Value Reference Range Interpretation Comments Mumps IgG (test code = Mumps IgG) no gt [facility] TylerNhbuzogNNBVACFDQU5633-94-18 18:22:00 Test Item Value Reference Range Interpretation Comments Rubella IgG (test code = Rubella IgG) no gt [facility] TylerCbjzqihUONGGPJHGP1677-90-16 18:22:00 Test Item Value Reference Range Interpretation Comments Rubeola IgG (test code = Rubeola IgG) 204.00 [place] 009042-02-07 18:22:00 Test Item Value Reference Range Interpretation Comments Trig (test code = Trig) [facility]AIXWQX9871-58-19 18:22:00 Test Item Value Reference Range Interpretation Comments Chol (test code = Chol) 209 [facility]UtkdytoOWDTFL4870-64-32 18:22:00 Test Item Value Reference Range Interpretation Comments HDL (test code = HDL) 33 [place] 009042-02-07 18:22:00 Test Item Value Reference Range Interpretation Comments CHD Risk (test code = CHD Risk) 6.33 1 4.00-7.30 [place] 009042-02-07 18:22:00 Test Item Value Reference Range Interpretation Comments LDL (Calculated) (test code = LDL 134 (Calculated)) [place] 009042-02-07 18:22:00 Test Item Value Reference Range Interpretation Comments VLDL (test code = VLDL) 42 1 [facility] - JRVNTUIZ7109-85-87 18:22:00 Test Item Value Reference Range Interpretation Comments Strongyloides Antibodies (test code NEGATIVE = Strongyloides Antibodies) [facility] CenterPARATHYROID JQIYLMQ8874-56-17 18:22:00 Test Item Value Reference Range Interpretation Comments PTH Intact (test code = PTH Intact) 511.0 18.4-80.1 [facility] [id number] 18:22:00 Test Item Value Reference Range Interpretation Comments Misc Quest (test code = Misc Quest) REPORT [facility] CenterSPE[facility] WPOZDERMY5764-59-40 18:22:00 Test Item Value Reference Range Interpretation Comments Nicotine Lvl (test code = Nicotine Lvl) no gt [facility] KDRSQYTAX8457-26-29 18:22:00 Test Item Value Reference Range Interpretation Comments Cotinine Lvl (test code = Cotinine Lvl) no gt [facility] JWRBTTAXI7105-01-74 18:22:00 Test Item Value Reference Range Interpretation Comments Hgb A1C (test code = Hgb A1C) 5.7 [facility] MXJLOMCDV4837-39-60 18:22:00 Test Item Value Reference Range Interpretation Comments PSA (test code = PSA) 2.26 [facility] Center[facility]IR[facility] - [id number] 18:22:00 Test Item Value Reference Range Interpretation Comments T cruzi (Chagas) Ab (test code = NONREACTIVE T cruzi (Chagas) Ab) [facility] Center[facility] CLVUPWQP6246-21-03 18:22:00 Test Item Value Reference Range Interpretation Comments W Nile Ab IgG (test code = W Nile Ab no gt IgG) [facility] - JJCTKFXS8881-70-18 18:22:00 Test Item Value Reference Range Interpretation Comments W Nile Ab IgM (test code = W Nile Ab no gt IgM) [facility] PBYPC0792-05-57 15:25:00 Test Item Value Reference Range Interpretation Comments Glucose Lvl (test code = Glucose Lvl) 126 70-99 [facility] NSYGS4229-04-38 15:25:00 Test Item Value Reference Range Interpretation Comments BUN (test code = BUN) 35 7-22 [facility] [id number] 15:25:00 Test Item Value Reference Range Interpretation Comments Creatinine Lvl (test code = Creatinine 5.57 0.50-1.40 Lvl) [place] 435751-12-08 15:25:00 Test Item Value Reference Range Interpretation Comments Sodium Lvl (test code = Sodium Lvl) 141 135-145 [place] 435751-12-08 15:25:00 Test Item Value Reference Range Interpretation Comments Potassium Lvl (test code = Potassium 3.3 3.5-5.1 Lvl) [place] 435751-12-08 15:25:00 Test Item Value Reference Range Interpretation Comments Chloride Lvl (test code = Chloride Lvl) 105 95-109 [place] 435751-12-08 15:25:00 Test Item Value Reference Range Interpretation Comments CO2 (test code = CO2) 28 24-32 [place] 435751-12-08 15:25:00 Test Item Value Reference Range Interpretation Comments Calcium Lvl (test code = Calcium Lvl) 9.1 8.5-10.5 [place] 435751-12-08 15:25:00 Test Item Value Reference Range Interpretation Comments Total Protein (test code = Total 7.2 6.4-8.4 Protein) [place] 435751-12-08 15:25:00 Test Item Value Reference Range Interpretation Comments Albumin Lvl (test code = Albumin Lvl) 3.1 3.5-5.0 [place] 435751-12-08 15:25:00 Test Item Value Reference Range Interpretation Comments ALT (test code = ALT) 15 See_Comment [Auto mated message] The system which [employer] nerated this result transmit nicko reference range : <=65. The reference range was not used to interpr et this result as adebayo l/abnormal. [place] 435751-12-08 15:25:00 Test Item Value Reference Range Interpretation Comments AST (test code = AST) 10 See_Comment [Auto mated message] The system which [employer] nerated this result transmit nicko reference range : <=37. The reference range was not used to interpr et this result as adebayo l/abnormal. [place] 435751-12-08 15:25:00 Test Item Value Reference Range Interpretation Comments Alk Phos (test code = Alk Phos) 55 39-[address]12-08 15:25:00 Test Item Value Reference Range Interpretation Comments Bili Total (test code = Bili Total) 0.3 0.2-1.3 [place] 435751-12-08 15:25:00 Test Item Value Reference Range Interpretation Comments AGAP (test code = AGAP) 11.3 10.0-20.0 [place] 435751-12-08 15:25:00 Test Item Value Reference Range Interpretation Comments B/C Ratio (test code = B/C Ratio) 6 1 6-25 [place] [address]-12-08 15:25:00 Test Item Value Reference Range Interpretation Comments Globulin (test code = Globulin) 4.1 2.7-4.2 [place] 435751-12-08 15:25:00 Test Item Value Reference Range Interpretation Comments A/G Ratio (test code = A/G Ratio) 0.8 1 0.7-1.6 [place] 435751-12-08 15:25:00 Test Item Value Reference Range Interpretation Comments eGFR (test code = eGFR) 10 [place] 045031-12-08 15:25:00 Test Item Value Reference Range Interpretation Comments WBC (test code = WBC) 8.7 3.7-10.4 [place] 045031-12-08 15:25:00 Test Item Value Reference Range Interpretation Comments RBC (test code = RBC) 3.91 4.70-6.10 [place] 045031-12-08 15:25:00 Test Item Value Reference Range Interpretation Comments Hgb (test code = Hgb) 12.2 14.0-18.0 [place] [address]-12-08 15:25:00 Test Item Value Reference Range Interpretation Comments Hct (test code = Hct) 37.4 42.0-54.0 [place] [address]-12-08 15:25:00 Test Item Value Reference Range Interpretation Comments MCV (test code = MCV) 95.5 80.0-94.0 [place] [address]-12-08 15:25:00 Test Item Value Reference Range Interpretation Comments MCH (test code = MCH) 31.1 pg 27.0-31.0 [place] [address]-12-08 15:25:00 Test Item Value Reference Range Interpretation Comments MCHC (test code = MCHC) 32.6 32.0-36.[address] [facility] HospitalBujagqpXJKGKZDVSX7804-09-49 15:25:00 Test Item Value Reference Range Interpretation Comments RDW (test code = RDW) 14.9 11.5-14.5 [place] 045031-12-08 15:25:00 Test Item Value Reference Range Interpretation Comments Platelet (test code = Platelet) 229 133-[address] [facility] HospitalMzvqekrYVFQHNFKEX2145-18-09 15:25:00 Test Item Value Reference Range Interpretation Comments MPV (test code = MPV) 8.0 7.4-10.[address] [facility] HospitalUmrvsczBVALZJLKQY6029-27-82 15:25:00 Test Item Value Reference Range Interpretation Comments Segs (test code = Segs) 69.4 45.0-75.0 [place] 045031-12-08 15:25:00 Test Item Value Reference Range Interpretation Comments Lymphocytes (test code = Lymphocytes) 20.9 20.0-40.[address] [facility] HospitalXvvheavUQVGJDWKLQ6419-81-08 15:25:00 Test Item Value Reference Range Interpretation Comments Monocytes (test code = Monocytes) 5.3 2.0-12.[address] [facility] HospitalFtxwdxwTATSHPRDPY9383-56-07 15:25:00 Test Item Value Reference Range Interpretation Comments Eosinophils (test code = 3.6 See_Comment [A utomated message] The Eosinophils) system which ge nerated this result tra nsmitted reference range : <=4.0. The reference r carlos was not used to int erpret this result as normal/abnormal . [facility] HospitalIjvqaavZXIRXRDZHE5411-86-21 15:25:00 Test Item Value Reference Range Interpretation Comments Basophils (test code = 0.8 See_Comment [Aut omated message] The Basophils) system which ge nerated this result tra nsmitted reference range : <=1.0. The reference r carlos was not used to int erpret this result as normal/abnormal . [facility] HospitalZqvfjinKDVMNEKCBY2461-87-93 15:25:00 Test Item Value Reference Range Interpretation Comments Neutrophils # (test code = Neutrophils 6.0 1.5-8.1 #) [facility] HospitalNvdeulhZKCTFLKHOR3651-71-98 15:25:00 Test Item Value Reference Range Interpretation Comments Lymphocytes # (test code = Lymphocytes 1.8 1.0-5.5 #) [facility] HospitalXthbvilKGGMJLHGTT3701-41-83 15:25:00 Test Item Value Reference Range Interpretation Comments Monocytes # (test code 0.5 See_Comment [Aut omated message] The = Monocytes #) system which generated this result tra nsmitted reference range : <=0.8. The reference r carlos was not used to int erpret this result as normal/abnormal . [facility] HospitalWidbtmnDDNRSXHQEJ6869-20-87 15:25:00 Test Item Value Reference Range Interpretation Comments Eosinophils # (test code 0.3 See_Comment [A utomated message] The = Eosinophils #) system whic h generated this result tra nsmitted reference range : <=0.5. The reference r carlos was not used to int erpret this result as normal/abnormal . [facility] HospitalXhjhjnqWIOJHANIYE2105-98-42 15:25:00 Test Item Value Reference Range Interpretation Comments Basophils # (test code 0.1 See_Comment [Aut omated message] The = Basophils #) system which generated this result tra nsmitted reference range : <=0.2. The reference r carlos was not used to int erpret this result as normal/abnormal . [place] 123881-12-08 15:25:00 Test Item Value Reference Range Interpretation Comments Albumin % (test code = Albumin %) 54.0 55.8-66.1 [place] 123881-12-08 15:25:00 Test Item Value Reference Range Interpretation Comments Alpha 1 % (test code = Alpha 1 %) 6.4 2.8-4.9 [place] 123881-12-08 15:25:00 Test Item Value Reference Range Interpretation Comments Alpha 2 % (test code = Alpha 2 %) 13.4 7.0-11.9 [place] 123881-12-08 15:25:00 Test Item Value Reference Range Interpretation Comments Beta % (test code = Beta %) 11.5 7.8-13.7 [place] 123881-12-08 15:25:00 Test Item Value Reference Range Interpretation Comments Gamma % (test code = Gamma %) 14.7 11.1-18.7 [place] 123881-12-08 15:25:00 Test Item Value Reference Range Interpretation Comments Albumin (SPE) (test code = Albumin 3.89 3.57-5.55 (SPE)) [facility] 15:25:00 Test Item Value Reference Range Interpretation Comments Alpha 1 Glob (test code = Alpha 1 Glob) 0.46 0.18-0.41 [facility] CenterFctsqxuHSWHBZLNLF0778-59-04 15:25:00 Test Item Value Reference Range Interpretation Comments Alpha 2 Glob (test code = Alpha 2 Glob) 0.96 0.45-1.00 [facility] CenterGflvfaqOCSODEAPUO6733-27-43 15:25:00 Test Item Value Reference Range Interpretation Comments Beta Glob (test code = Beta Glob) 0.83 0.50-1.15 [facility] CenterOlnomxkEOGJAZHIQR0992-65-34 15:25:00 Test Item Value Reference Range Interpretation Comments Gamma Glob (test code = Gamma Glob) 1.06 0.71-1.57 [place] [address]-12-08 15:25:00 Test Item Value Reference Range Interpretation Comments Tot Prot (SPE) (test code = Tot Prot 7.2 6.4-8.4 (SPE)) [place] 123881-12-08 15:25:00 Test Item Value Reference Range Interpretation [...] and concur with the resident's interpretation. CPT 18441-NC [facility] CenterVnhrbxtNWAHLFGRJW2771-24-62 15:25:00 Test Item Value Reference Range Interpretation Comments KAREN Ser Pattern A distinct monoclonal (test code = KAREN Ser band is present in the Pattern) IgM izabella with a corresponding distinct band in the kappa light chain izabella. The polyclonal gamma globulin background is preserved in all lanes. [facility]YhqwfhvQUFYUNKHHF8782-77-25 15:25:00 Test Item Value Reference Range Interpretation [...] and concur with the resident's interpretation. CPT 19206-WW [place] 123881-12-08 15:25:00 Test Item Value Reference Range Interpretation Comments Rennert Free Light Chains (test code = 107.5 R[employer]ert [employer] Chains) [place] [address]-12-08 15:25:00 Test Item Value Reference Range Interpretation Comments Lambda Free Light Chains (test code = 68.4 Lambda [employer]) [address]12-08 15:25:00 Test Item Value Reference Range Interpretation Comments Rennert/Lambda Free Light Chains Ratio 1.57 1 (test code = Rennert/Lambda Free Light Chains Ratio) [place] 435751-12-08 15:25:00 Test Item Value Reference Range Interpretation Comments Glucose Lvl (test code = Glucose Lvl) 126 70-99 [place] 435751-12-08 15:25:00 Test Item Value Reference Range Interpretation Comments BUN (test code = BUN) 35 7-22 [place] 435751-12-08 15:25:00 Test Item Value Reference Range Interpretation Comments Creatinine Lvl (test code = Creatinine 5.57 0.50-1.40 Lvl) [place] 435751-12-08 15:25:00 Test Item Value Reference Range Interpretation Comments Sodium Lvl (test code = Sodium Lvl) 141 135-145 [place] 435751-12-08 15:25:00 Test Item Value Reference Range Interpretation Comments Potassium Lvl (test code = Potassium 3.3 3.5-5.1 Lvl) [place] 435751-12-08 15:25:00 Test Item Value Reference Range Interpretation Comments Chloride Lvl (test code = Chloride Lvl) 105 95-109 [place] 435751-12-08 15:25:00 Test Item Value Reference Range Interpretation Comments CO2 (test code = CO2) 28 24-32 [place] 435751-12-08 15:25:00 Test Item Value Reference Range Interpretation Comments Calcium Lvl (test code = Calcium Lvl) 9.1 8.5-10.5 [facility] CenterCHE[facility] MSWIO0511-79-92 15:25:00 Test Item Value Reference Range Interpretation Comments Total Protein (test code = Total 7.2 6.4-8.4 Protein) [place] 435751-12-08 15:25:00 Test Item Value Reference Range Interpretation Comments Albumin Lvl (test code = Albumin Lvl) 3.1 3.5-5.0 [facility] [id number] 15:25:00 Test Item Value Reference Range Interpretation Comments ALT (test code = ALT) 15 See_Comment [Auto mated message] The system which ge nerated this result transmit nicko reference range : <=65. The reference range was not used to interpr et this result as adebayo l/abnormal. [facility] ZOLXW1540-67-82 15:25:00 Test Item Value Reference Range Interpretation Comments AST (test code = AST) 10 See_Comment [Auto mated message] The system which ge nerated this result transmit nicko reference range : <=37. The reference range was not used to interpr et this result as adebayo l/abnormal. [facility] [id number] 15:25:00 Test Item Value Reference Range Interpretation Comments Alk Phos (test code = Alk Phos) 55 39-136 [facility] [id number] 15:25:00 Test Item Value Reference Range Interpretation Comments Bili Total (test code = Bili Total) 0.3 0.2-1.3 [facility] [id number] 15:25:00 Test Item Value Reference Range Interpretation Comments AGAP (test code = AGAP) 11.3 10.0-20.0 [facility] [id number] 15:25:00 Test Item Value Reference Range Interpretation Comments B/C Ratio (test code = B/C Ratio) 6 1 6-25 [facility] [id number] 15:25:00 Test Item Value Reference Range Interpretation Comments Globulin (test code = Globulin) 4.1 2.7-4.2 [facility] [id number] 15:25:00 Test Item Value Reference Range Interpretation Comments A/G Ratio (test code = A/G Ratio) 0.8 1 0.7-1.6 [facility] [id number] 15:25:00 Test Item Value Reference Range Interpretation Comments eGFR (test code = eGFR) [address] [facility] HospitalUakqzkiQGBEILYHOO1464-16-02 15:25:00 Test Item Value Reference Range Interpretation Comments WBC (test code = WBC) 8.7 3.7-10.4 [place] 045031-12-08 15:25:00 Test Item Value Reference Range Interpretation Comments RBC (test code = RBC) 3.91 4.70-6.[address] [facility] HospitalMngitzuOUHMOIGWWN0735-71-42 15:25:00 Test Item Value Reference Range Interpretation Comments Hgb (test code = Hgb) 12.2 14.0-18.[address] [facility] HospitalQinkxvbENYTJMJVEA5517-90-53 15:25:00 Test Item Value Reference Range Interpretation Comments Hct (test code = Hct) 37.4 42.0-54.[address] [facility] HospitalFvrwfjzXJURMBUZXS1873-60-77 15:25:00 Test Item Value Reference Range Interpretation Comments MCV (test code = MCV) 95.5 80.0-94.0 [place] 045031-12-08 15:25:00 Test Item Value Reference Range Interpretation Comments MCH (test code = MCH) 31.1 pg 27.0-31.[address] [facility] HospitalTtmlsemSJDMYRCCBV0528-06-99 15:25:00 Test Item Value Reference Range Interpretation Comments MCHC (test code = MCHC) 32.6 32.0-36.[address] [facility] HospitalQtorjdbRRJYSTEIQS5058-94-57 15:25:00 Test Item Value Reference Range Interpretation Comments RDW (test code = RDW) 14.9 11.5-14.5 [place] 045031-12-08 15:25:00 Test Item Value Reference Range Interpretation Comments Platelet (test code = Platelet) 229 133-[address] [facility] HospitalWhqvmjbVKKLPOICHR1326-82-92 15:25:00 Test Item Value Reference Range Interpretation Comments MPV (test code = MPV) 8.0 7.4-10.[address] [facility] HospitalJefqxspMNOABKDLHR3359-35-58 15:25:00 Test Item Value Reference Range Interpretation Comments Segs (test code = Segs) 69.4 45.0-75.0 [place] 045031-12-08 15:25:00 Test Item Value Reference Range Interpretation Comments Lymphocytes (test code = Lymphocytes) 20.9 20.0-40.0 [place] 045031-12-08 15:25:00 Test Item Value Reference Range Interpretation Comments Monocytes (test code = Monocytes) 5.3 2.0-12.0 [place] 045031-12-08 15:25:00 Test Item Value Reference Range Interpretation Comments Eosinophils (test code = 3.6 See_Comment [A utomated message] The Eosinophils) system which ge nerated this result tra nsmitted reference range : <=4.0. The reference r carlos was not used to int erpret this result as normal/abnormal . [place] 045031-12-08 15:25:00 Test Item Value Reference Range Interpretation Comments Basophils (test code = 0.8 See_Comment [Aut omated message] The Basophils) system which ge nerated this result tra nsmitted reference range : <=1.0. The reference r carlos was not used to int erpret this result as normal/abnormal . [place] 045031-12-08 15:25:00 Test Item Value Reference Range Interpretation Comments Neutrophils # (test code = Neutrophils 6.0 1.5-8.1 #) [place] 045031-12-08 15:25:00 Test Item Value Reference Range Interpretation Comments Lymphocytes # (test code = Lymphocytes 1.8 1.0-5.5 #) [facility] HospitalUaissxqTTCTFOAABM4705-26-60 15:25:00 Test Item Value Reference Range Interpretation Comments Monocytes # (test code 0.5 See_Comment [Aut omated message] The = Monocytes #) system which generated this result tra nsmitted reference range : <=0.8. The reference r carlos was not used to int erpret this result as normal/abnormal . [place] 045031-12-08 15:25:00 Test Item Value Reference Range Interpretation Comments Eosinophils # (test code 0.3 See_Comment [A utomated message] The = Eosinophils #) system whic h generated this result tra nsmitted reference range : <=0.5. The reference r carlos was not used to int erpret this result as normal/abnormal . [place] 045031-12-08 15:25:00 Test Item Value Reference Range Interpretation Comments Basophils # (test code 0.1 See_Comment [Aut omated message] The = Basophils #) system which generated this result tra nsmitted reference range : <=0.2. The reference r carlos was not used to int erpret this result as normal/abnormal . [facility]PgzcolcOTWQRKNVLW7228-71-41 15:25:00 Test Item Value Reference Range Interpretation Comments Albumin % (test code = Albumin %) 54.0 55.8-66.1 [facility] TylerRkjbddiHBDZGSCBEZ9068-89-26 15:25:00 Test Item Value Reference Range Interpretation Comments Alpha 1 % (test code = Alpha 1 %) 6.4 2.8-4.9 [facility] CenterWlwjtdgVIRCOKDDKR1340-89-83 15:25:00 Test Item Value Reference Range Interpretation Comments Alpha 2 % (test code = Alpha 2 %) 13.4 7.0-11.9 [facility] CenterIajquhoGUXZYJRCUG5331-97-25 15:25:00 Test Item Value Reference Range Interpretation Comments Beta % (test code = Beta %) 11.5 7.8-13.7 [facility] TylerHepufmtFKWEMPKHXQ7474-44-80 15:25:00 Test Item Value Reference Range Interpretation Comments Gamma % (test code = Gamma %) 14.7 11.1-18.7 [facility] CenterQnrczgsSKDETTQEER7578-17-84 15:25:00 Test Item Value Reference Range Interpretation Comments Albumin (SPE) (test code = Albumin 3.89 3.57-5.55 (SPE)) [facility] TylerNwuvqguACQBILELMH6042-14-53 15:25:00 Test Item Value Reference Range Interpretation Comments Alpha 1 Glob (test code = Alpha 1 Glob) 0.46 0.18-0.41 [facility] CenterWqfgopgJDJMLXSGUN4393-25-11 15:25:00 Test Item Value Reference Range Interpretation Comments Alpha 2 Glob (test code = Alpha 2 Glob) 0.96 0.45-1.00 [facility] CenterBicuoatORSZQMNGBI9629-23-44 15:25:00 Test Item Value Reference Range Interpretation Comments Beta Glob (test code = Beta Glob) 0.83 0.50-1.15 [facility] CenterAlczfdyOZAZKXILBF1730-26-57 15:25:00 Test Item Value Reference Range Interpretation Comments Gamma Glob (test code = Gamma Glob) 1.06 0.71-1.57 [facility] CenterSywygyzMFOVAVYLED5868-44-19 15:25:00 Test Item Value Reference Range Interpretation Comments Tot Prot (SPE) (test code = Tot Prot 7.2 6.4-8.4 (SPE)) [facility] CenterZkzdxwxNBVEILWEFK9432-49-22 15:25:00 Test Item Value Reference Range Interpretation [...] and concur with the resident's interpretation. CPT 44700-AJ [facility] CenterZnlreeqJHGCCAYGRM5474-24-95 15:25:00 Test Item Value Reference Range Interpretation Comments KAREN Ser Pattern A distinct monoclonal (test code = KAREN Ser band is present in the Pattern) IgM izabella with a corresponding distinct band in the kappa light chain izabella. The polyclonal gamma globulin background is preserved in all lanes. [facility] CenterXzzghufWKPYCNTDPM1691-21-11 15:25:00 Test Item Value Reference Range Interpretation [...] results and concur with the resident's interpretation. [facility] 00620-VW [facility] CenterEtvyefbQFRFLTNFRG3891-90-59 15:25:00 Test Item Value Reference Range Interpretation Comments Rennert Free Light Chains (test code = 107.5 R[employer]ert Free Light Chains) [facility] CenterLastntmNVGTIHKTKI2843-39-83 15:25:00 Test Item Value Reference Range Interpretation Comments Lambda Free Light Chains (test code = 68.4 Lambda Free Light Chains) [facility] CenterTzpgrkrBNZLLTUSAY3863-88-64 15:25:00 Test Item Value Reference Range Interpretation Comments Rennert/Lambda Free Light Chains Ratio 1.57 1 (test code = Rennert/Lambda Free Light Chains Ratio) [facility]2021-12-08 15:25:00 Test Item Value Reference Range Interpretation Comments Glucose Lvl (test code = Glucose Lvl) 126 70-99 [place] [address]-12-08 15:25:00 Test Item Value Reference Range Interpretation Comments BUN (test code = BUN) 35 7-22 [place] [address]-12-08 15:25:00 Test Item Value Reference Range Interpretation Comments Creatinine Lvl (test code = Creatinine 5.57 0.50-1.40 Lvl) [place] 435751-12-08 15:25:00 Test Item Value Reference Range Interpretation Comments Sodium Lvl (test code = Sodium Lvl) 141 135-145 [place] [address]-12-08 15:25:00 Test Item Value Reference Range Interpretation Comments Potassium Lvl (test code = Potassium 3.3 3.5-5.1 Lvl) [place] 435751-12-08 15:25:00 Test Item Value Reference Range Interpretation Comments Chloride Lvl (test code = Chloride Lvl) 105 95-109 [place] 435751-12-08 15:25:00 Test Item Value Reference Range Interpretation Comments CO2 (test code = CO2) 28 24-32 [place] [address]-12-08 15:25:00 Test Item Value Reference Range Interpretation Comments Calcium Lvl (test code = Calcium Lvl) 9.1 8.5-10.5 [place] [address]-12-08 15:25:00 Test Item Value Reference Range Interpretation Comments Total Protein (test code = Total 7.2 6.4-8.4 Protein) [place] [address]-12-08 15:25:00 Test Item Value Reference Range Interpretation Comments Albumin Lvl (test code = Albumin Lvl) 3.1 3.5-5.0 [place] [address]-12-08 15:25:00 Test Item Value Reference Range Interpretation Comments ALT (test code = ALT) 15 See_Comment [Auto mated message] The system which ge nerated this result transmit nicko reference range : <=65. The reference range was not used to interpr et this result as adebayo l/abnormal. [place] [address]-12-08 15:25:00 Test Item Value Reference Range Interpretation Comments AST (test code = AST) 10 See_Comment [Auto mated message] The system which ge nerated this result transmit nicko reference range : <=37. The reference range was not used to interpr et this result as adebayo l/abnormal. [facility] [id number] 15:25:00 Test Item Value Reference Range Interpretation Comments Alk Phos (test code = Alk Phos) 55 39-136 [place] 435751-12-08 15:25:00 Test Item Value Reference Range Interpretation Comments Bili Total (test code = Bili Total) 0.3 0.2-1.3 [place] 435751-12-08 15:25:00 Test Item Value Reference Range Interpretation Comments AGAP (test code = AGAP) 11.3 10.0-20.0 [place] 435751-12-08 15:25:00 Test Item Value Reference Range Interpretation Comments B/C Ratio (test code = B/C Ratio) 6 1 6-25 [place] [address]-12-08 15:25:00 Test Item Value Reference Range Interpretation Comments Globulin (test code = Globulin) 4.1 2.7-4.2 [facility] [id number] 15:25:00 Test Item Value Reference Range Interpretation Comments A/G Ratio (test code = A/G Ratio) 0.8 1 0.7-1.6 [place] 435751-12-08 15:25:00 Test Item Value Reference Range Interpretation Comments eGFR (test code = eGFR) 10 [place] 045031-12-08 15:25:00 Test Item Value Reference Range Interpretation Comments WBC (test code = WBC) 8.7 3.7-10.4 [place] 045031-12-08 15:25:00 Test Item Value Reference Range Interpretation Comments RBC (test code = RBC) 3.91 4.70-6.10 [place] [address]-12-08 15:25:00 Test Item Value Reference Range Interpretation Comments Hgb (test code = Hgb) 12.2 14.0-18.0 [place] [address]-12-08 15:25:00 Test Item Value Reference Range Interpretation Comments Hct (test code = Hct) 37.4 42.0-54.0 [place] [address]-12-08 15:25:00 Test Item Value Reference Range Interpretation Comments MCV (test code = MCV) 95.5 80.0-94.0 [place] 045031-12-08 15:25:00 Test Item Value Reference Range Interpretation Comments MCH (test code = MCH) 31.1 pg 27.0-31.0 [place] 045031-12-08 15:25:00 Test Item Value Reference Range Interpretation Comments MCHC (test code = MCHC) 32.6 32.0-36.0 [place] 045031-12-08 15:25:00 Test Item Value Reference Range Interpretation Comments RDW (test code = RDW) 14.9 11.5-14.5 [place] 045031-12-08 15:25:00 Test Item Value Reference Range Interpretation Comments Platelet (test code = Platelet) 229 133-[address] [facility] HospitalCgfxbgqHQOIYQZIKQ2484-96-89 15:25:00 Test Item Value Reference Range Interpretation Comments MPV (test code = MPV) 8.0 7.4-10.4 [place] 045031-12-08 15:25:00 Test Item Value Reference Range Interpretation Comments Segs (test code = Segs) 69.4 45.0-75.0 [place] 045031-12-08 15:25:00 Test Item Value Reference Range Interpretation Comments Lymphocytes (test code = Lymphocytes) 20.9 20.0-40.[address] [facility] HospitalTbsohbxUXTJWQVZXM1333-26-69 15:25:00 Test Item Value Reference Range Interpretation Comments Monocytes (test code = Monocytes) 5.3 2.0-12.[address] [facility] HospitalViiiovcRVHPBJZWHB9438-63-45 15:25:00 Test Item Value Reference Range Interpretation Comments Eosinophils (test code = 3.6 See_Comment [A utomated message] The Eosinophils) system which ge nerated this result tra nsmitted reference range : <=4.0. The reference r carlos was not used to int erpret this result as normal/abnormal . [facility] HospitalQpigezmBISNQYVTFI3666-70-09 15:25:00 Test Item Value Reference Range Interpretation Comments Basophils (test code = 0.8 See_Comment [Aut omated message] The Basophils) system which ge nerated this result tra nsmitted reference range : <=1.0. The reference r carlos was not used to int erpret this result as normal/abnormal . [place] 045031-12-08 15:25:00 Test Item Value Reference Range Interpretation Comments Neutrophils # (test code = Neutrophils 6.0 1.5-8.1 #) [facility] HospitalGlimrdmZXIDWEVQXP3012-75-89 15:25:00 Test Item Value Reference Range Interpretation Comments Lymphocytes # (test code = Lymphocytes 1.8 1.0-5.5 #) [facility] HospitalTuwotglHZWMUSBXWN7290-38-98 15:25:00 Test Item Value Reference Range Interpretation Comments Monocytes # (test code 0.5 See_Comment [Aut omated message] The = Monocytes #) system which generated this result tra nsmitted reference range : <=0.8. The reference r carlos was not used to int erpret this result as normal/abnormal . [facility] HospitalPropvtxAVKXMKUUJS8880-25-43 15:25:00 Test Item Value Reference Range Interpretation Comments Eosinophils # (test code 0.3 See_Comment [A utomated message] The = Eosinophils #) system whic h generated this result tra nsmitted reference range : <=0.5. The reference r carlos was not used to int erpret this result as normal/abnormal . [facility] HospitalNyirtpeCJDSFISLID8544-75-99 15:25:00 Test Item Value Reference Range Interpretation Comments Basophils # (test code 0.1 See_Comment [Aut omated message] The = Basophils #) system which generated this result tra nsmitted reference range : <=0.2. The reference r carlos was not used to int erpret this result as normal/abnormal . [facility]010[facility] 15:25:00 Test Item Value Reference Range Interpretation Comments Albumin % (test code = Albumin %) 54.0 55.8-66.1 [place] 123881-12-08 15:25:00 Test Item Value Reference Range Interpretation Comments Alpha 1 % (test code = Alpha 1 %) 6.4 2.8-4.9 [place] 123881-12-08 15:25:00 Test Item Value Reference Range Interpretation Comments Alpha 2 % (test code = Alpha 2 %) 13.4 7.0-11.9 [place] [address]-12-08 15:25:00 Test Item Value Reference Range Interpretation Comments Beta % (test code = Beta %) 11.5 7.8-13.7 [place] [address]-12-08 15:25:00 Test Item Value Reference Range Interpretation Comments Gamma % (test code = Gamma %) 14.7 11.1-18.7 [facility] CenterEuprxpzKBLOEQLGCF1136-61-17 15:25:00 Test Item Value Reference Range Interpretation Comments Albumin (SPE) (test code = Albumin 3.89 3.57-5.55 (SPE)) [facility]hu[facility]XURCMUKMS3200-79-40 15:25:00 Test Item Value Reference Range Interpretation Comments Alpha 1 Glob (test code = Alpha 1 Glob) 0.46 0.18-0.41 [facility] CenterUzzuqafIDXSSSIKJW5988-88-14 15:25:00 Test Item Value Reference Range Interpretation Comments Alpha 2 Glob (test code = Alpha 2 Glob) 0.96 0.45-1.00 [facility] CenterBwzfdavCUGLKFOSCO3599-70-87 15:25:00 Test Item Value Reference Range Interpretation Comments Beta Glob (test code = Beta Glob) 0.83 0.50-1.15 [facility] CenterIzdfqudWQRCAVKLQZ5499-95-07 15:25:00 Test Item Value Reference Range Interpretation Comments Gamma Glob (test code = Gamma Glob) 1.06 0.71-1.57 [facility] CenterEawdsisMQXUTWARSG3589-63-47 15:25:00 Test Item Value Reference Range Interpretation Comments Tot Prot (SPE) (test code = Tot Prot 7.2 6.4-8.4 (SPE)) [facility]ppedbrYMHZCXEUCN2448-11-00 15:25:00 Test Item Value Reference Range Interpretation [...] and concur with the resident's interpretation. CPT 36508-XG [facility] CenterEpfbjggKTTCUMIVOH6018-30-01 15:25:00 Test Item Value Reference Range Interpretation Comments KAREN Ser Pattern A distinct monoclonal (test code = KAREN Ser band is present in the Pattern) IgM izabella with a corresponding distinct band in the kappa light chain izabella. The polyclonal gamma globulin background is preserved in all lanes. [place] 123881-12-08 15:25:00 Test Item Value Reference Range Interpretation [...] and concur with the resident's interpretation. CPT 97422-CS [place] 123881-12-08 15:25:00 Test Item Value Reference Range Interpretation Comments Rennert Free Light Chains (test code = 107.5 Rennert Free Light Chains) [place] [address]-12-08 15:25:00 Test Item Value Reference Range Interpretation Comments Lambda Free Light Chains (test code = 68.4 Lambda Free Light Chains) [place] [address]-12-08 15:25:00 Test Item Value Reference Range Interpretation Comments Rennert/Lambda Free Light Chains Ratio 1.57 1 (test code = Rennert/Lambda Free Light Chains Ratio) [place] 435751-12-08 15:25:00 Test Item Value Reference Range Interpretation Comments Glucose Lvl (test code = Glucose Lvl) 126 70-99 [place] 435751-12-08 15:25:00 Test Item Value Reference Range Interpretation Comments BUN (test code = BUN) 35 7-22 [place] 435751-12-08 15:25:00 Test Item Value Reference Range Interpretation Comments Creatinine Lvl (test code = Creatinine 5.57 0.50-1.40 Lvl) [facility]2021-12-08 15:25:00 Test Item Value Reference Range Interpretation Comments Sodium Lvl (test code = Sodium Lvl) 141 135-145 [place] 435751-12-08 15:25:00 Test Item Value Reference Range Interpretation Comments Potassium Lvl (test code = Potassium 3.3 3.5-5.1 Lvl) [place] 435751-12-08 15:25:00 Test Item Value Reference Range Interpretation Comments Chloride Lvl (test code = Chloride Lvl) 105 95-109 [place] 435751-12-08 15:25:00 Test Item Value Reference Range Interpretation Comments CO2 (test code = CO2) 28 24-32 [facility] [id number] 15:25:00 Test Item Value Reference Range Interpretation Comments Calcium Lvl (test code = Calcium Lvl) 9.1 8.5-10.5 [facility] VGBZU7891-84-28 15:25:00 Test Item Value Reference Range Interpretation Comments Total Protein (test code = Total 7.2 6.4-8.4 Protein) [facility] AWBWX0403-04-17 15:25:00 Test Item Value Reference Range Interpretation Comments Albumin Lvl (test code = Albumin Lvl) 3.1 3.5-5.0 [facility] HCRJC5954-31-11 15:25:00 Test Item Value Reference Range Interpretation Comments ALT (test code = ALT) 15 See_Comment [Auto mated message] The system which ge nerated this result transmit nicko reference range : <=65. The reference range was not used to interpr et this result as adebayo l/abnormal. [facility] [id number] 15:25:00 Test Item Value Reference Range Interpretation Comments AST (test code = AST) 10 See_Comment [Auto mated message] The system which ge nerated this result transmit nicko reference range : <=37. The reference range was not used to interpr et this result as adebayo l/abnormal. [facility] FREAQ3483-06-52 15:25:00 Test Item Value Reference Range Interpretation Comments Alk Phos (test code = Alk Phos) 55 39-136 [facility] [employer] [id number] 15:25:00 Test Item Value Reference Range Interpretation Comments Bili Total (test code = Bili Total) 0.3 0.2-1.3 [facility] [employer] IKJNB1710-66-76 15:25:00 Test Item Value Reference Range Interpretation Comments AGAP (test code = AGAP) 11.3 10.0-20.0 [facility] [employer] [id number] 15:25:00 Test Item Value Reference Range Interpretation Comments B/C Ratio (test code = B/C Ratio) 6 1 6-25 [facility] [employer] EIARI8973-89-59 15:25:00 Test Item Value Reference Range Interpretation Comments Globulin (test code = Globulin) 4.1 2.7-4.2 [facility]2021-12-08 15:25:00 Test Item Value Reference Range Interpretation Comments A/G Ratio (test code = A/G Ratio) 0.8 1 0.7-1.6 [place] 435751-12-08 15:25:00 Test Item Value Reference Range Interpretation Comments eGFR (test code = eGFR) 10 [place] 045031-12-08 15:25:00 Test Item Value Reference Range Interpretation Comments WBC (test code = WBC) 8.7 3.7-10.4 [place] 045031-12-08 15:25:00 Test Item Value Reference Range Interpretation Comments RBC (test code = RBC) 3.91 4.70-6.10 [place] [address]-12-08 15:25:00 Test Item Value Reference Range Interpretation Comments Hgb (test code = Hgb) 12.2 14.0-18.0 [place] 045031-12-08 15:25:00 Test Item Value Reference Range Interpretation Comments Hct (test code = Hct) 37.4 42.0-54.0 [place] 045031-12-08 15:25:00 Test Item Value Reference Range Interpretation Comments MCV (test code = MCV) 95.5 80.0-94.0 [place] [address]-12-08 15:25:00 Test Item Value Reference Range Interpretation Comments MCH (test code = MCH) 31.1 pg 27.0-31.0 [place] [address]-12-08 15:25:00 Test Item Value Reference Range Interpretation Comments MCHC (test code = MCHC) 32.6 32.0-36.0 [place] 045031-12-08 15:25:00 Test Item Value Reference Range Interpretation Comments RDW (test code = RDW) 14.9 11.5-14.5 [place] [address]-12-08 15:25:00 Test Item Value Reference Range Interpretation Comments Platelet (test code = Platelet) 229 133-[address] [facility] HospitalIjscetzGKESWKGXQO0063-48-88 15:25:00 Test Item Value Reference Range Interpretation Comments MPV (test code = MPV) 8.0 7.4-10.4 [place] 045031-12-08 15:25:00 Test Item Value Reference Range Interpretation Comments Segs (test code = Segs) 69.4 45.0-75.0 [place] 045031-12-08 15:25:00 Test Item Value Reference Range Interpretation Comments Lymphocytes (test code = Lymphocytes) 20.9 20.0-40.0 [place] [address]-12-08 15:25:00 Test Item Value Reference Range Interpretation Comments Monocytes (test code = Monocytes) 5.3 2.0-12.0 [place] 045031-12-08 15:25:00 Test Item Value Reference Range Interpretation Comments Eosinophils (test code = 3.6 See_Comment [A utomated message] The Eosinophils) system which ge nerated this result tra nsmitted reference range : <=4.0. The reference r carlos was not used to int erpret this result as normal/abnormal . [place] [address]-12-08 15:25:00 Test Item Value Reference Range Interpretation Comments Basophils (test code = 0.8 See_Comment [Aut omated message] The Basophils) system which ge nerated this result tra nsmitted reference range : <=1.0. The reference r carlos was not used to int erpret this result as normal/abnormal . [place] 045031-12-08 15:25:00 Test Item Value Reference Range Interpretation Comments Neutrophils # (test code = Neutrophils 6.0 1.5-8.1 #) [place] 045031-12-08 15:25:00 Test Item Value Reference Range Interpretation Comments Lymphocytes # (test code = Lymphocytes 1.8 1.0-5.5 #) [place] 045031-12-08 15:25:00 Test Item Value Reference Range Interpretation Comments Monocytes # (test code 0.5 See_Comment [Aut omated message] The = Monocytes #) system which generated this result tra nsmitted reference range : <=0.8. The reference r carlos was not used to int erpret this result as normal/abnormal . [place] 045031-12-08 15:25:00 Test Item Value Reference Range Interpretation Comments Eosinophils # (test code 0.3 See_Comment [A utomated message] The = Eosinophils #) system whic h generated this result tra nsmitted reference range : <=0.5. The reference r carlos was not used to int erpret this result as normal/abnormal . [facility] CenterYvzsiovWKCCAIZULX7043-40-49 15:25:00 Test Item Value Reference Range Interpretation Comments Basophils # (test code 0.1 See_Comment [Aut omated message] The = Basophils #) system which generated this result tra nsmitted reference range : <=0.2. The reference r carlos was not used to int erpret this result as normal/abnormal . [facility] CenterTwyecnsVPZRXRUWIP4010-52-31 15:25:00 Test Item Value Reference Range Interpretation Comments Albumin % (test code = Albumin %) 54.0 55.8-66.1 [facility] CenterZzoqwnwFJCGRWXQIU6625-04-67 15:25:00 Test Item Value Reference Range Interpretation Comments Alpha 1 % (test code = Alpha 1 %) 6.4 2.8-4.9 [facility] CenterLvmqnkoTQRPVWOQGP0084-72-88 15:25:00 Test Item Value Reference Range Interpretation Comments Alpha 2 % (test code = Alpha 2 %) 13.4 7.0-11.9 [facility]FPV[facility]-69-26 15:25:00 Test Item Value Reference Range Interpretation Comments Beta % (test code = Beta %) 11.5 7.8-13.7 [facility] CenterEqbafsjLXNEUDFQWD0384-20-73 15:25:00 Test Item Value Reference Range Interpretation Comments Gamma % (test code = Gamma %) 14.7 11.1-18.7 [facility] CenterJjmcqynDFORROFQDD2517-71-82 15:25:00 Test Item Value Reference Range Interpretation Comments Albumin (SPE) (test code = Albumin 3.89 3.57-5.55 (SPE)) [facility] CenterSfjjaynEZNPPRXGAG6570-22-17 15:25:00 Test Item Value Reference Range Interpretation Comments Alpha 1 Glob (test code = Alpha 1 Glob) 0.46 0.18-0.41 [facility] CenterMhslqjjVRGDUSQBDQ1715-38-08 15:25:00 Test Item Value Reference Range Interpretation Comments Alpha 2 Glob (test code = Alpha 2 Glob) 0.96 0.45-1.00 [facility]enKgupgcrOFWQIQGXBO8110-98-56 15:25:00 Test Item Value Reference Range Interpretation Comments Beta Glob (test code = Beta Glob) 0.83 0.50-1.15 [facility] McallenJfbtjfbKNJTJWGIXR2450-84-26 15:25:00 Test Item Value Reference Range Interpretation Comments Gamma Glob (test code = Gamma Glob) 1.06 0.71-1.57 [place] 123881-12-08 15:25:00 Test Item Value Reference Range Interpretation Comments Tot Prot (SPE) (test code = Tot Prot 7.2 6.4-8.4 (SPE)) [facility]kxMNOJHNLUMI0436-53-66 15:25:00 Test Item Value Reference Range Interpretation [...] results and concur with the resident's interpretation. [facility] [address] CenterWoxstjoSRXMUHBFWM5015-09-02 15:25:00 Test Item Value Reference Range Interpretation Comments KAREN Ser Pattern A distinct monoclonal (test code = KAREN Ser band is present in the Pattern) IgM ziabella with a corresponding distinct band in the kappa light chain izabella. The polyclonal gamma globulin background is preserved in all lanes. [facility]ytjvxYKIXRITSMQ2577-07-92 15:25:00 Test Item Value Reference Range Interpretation [...] and concur with the resident's interpretation. CPT 98527-YK [facility] CenterFjvnjsiIHXAQZSLQE5932-77-05 15:25:00 Test Item Value Reference Range Interpretation Comments Rennert Free Light Chains (test code = 107.5 Rennert Free Light Chains) [place] 123881-12-08 15:25:00 Test Item Value Reference Range Interpretation Comments Lambda Free Light Chains (test code = 68.4 Lambda Free Light Chains) [facility] CenterTljmduvCIUZFQYTVK6149-12-37 15:25:00 Test Item Value Reference Range Interpretation Comments Rennert/Lambda Free Light Chains Ratio 1.57 1 (test code = Rennert/Lambda Free Light Chains Ratio) [facility] [place] [place] 12 ftrq8584-87-10 03:58:06 Test Item Value Reference Range Interpretation Comments Ventricular rate (test code = 253) Atrial rate (test code = 255) FL interval (test code = 266) QRSD interval (test code = 260) QT interval (test code = 264) QTC interval (test code = 265) P axis 1 (test code = 267) QRS axis 1 (test code = 268) T wave axis (test code = 270) EKG impression (test code = 273) [facility] Lumbar Spine Wo Elrgfyhn7568-22-75 18:57:51EXAMINATION: CT LUMBAR SPINE WO CONTRAST COMPARISON: [...] September 19, 2020 at 1357 hours. [id number] Hm Interface, Radiology Results Incoming - 09/19/2020 2:00 [...] read back September 19, 2020 at 1357 hours.[id number]_[id number]w Uusrhoqr1485-83-29 18:15:14EXAMINATION: XR CHEST 1 VW PORTABLE CLINICAL HISTORY: 65 years Male CP COMPARISON: 07/10/2020 radiograph IMPRESSION: The lungs are clear and well-expanded with no focal consolidation, pneumothorax or pleural effusion. The cardiomediastinal silhouette is within normal limits. There is no acute osseous injury. The visualized upper abdomen is within normal limits. [id number] Interface, Radiology Results Incoming - 09/19/2020 1:18 PM CDT EXAMINATION: XR CHEST 1 VW PORTABLECLINICAL HISTORY: 65 years Male CPCOMPARISON: 07/10/2020 radiographIMPRESSION:The lungs are clear and well-expanded with no focal consolidation, pneumothorax or pleural effusion.The cardiomediastinal silhouette is within normal limits.There is no acute osseous injury.The visualized upper abdomen is within normal limits. [id number] ED Preliminary Interpretation - Not an Kewru3953-92-43 17:27:13Maryan Oneill MD 09/19/2020 6:41 [facility] ED Preliminary Interpretation - Not an OrderPerformed by: Maryan Oneill MDAuthorized by: Maryan Oneill MD ECG reviewed by ED Physician in the absence of a glove cleaner: yes Interpretation: Interpretation: non- specific Rate: ECG rate: 71 ECG rate assessment: normal Rhythm: Rhythm: sinus rhythm Ectopy: Ectopy: none QRS: QRS axis: Normal QRS intervals: NormalConduction: Conduction: abnormal Abnormal conduction: 1st degree ST segments: ST segments:NormalT waves: T waves: non-specificCT Abdomen Pelvis Wo Nzcwxlbu9546-47-74 02:14:01EXAMINATION: CT ABDOMEN PELVIS WO CONTRAST CLINICAL [...] with mild ascites.2.Right pulmonary hamartoma.3.Aortobiiliac stent.[id number] jkywfyk0324-55-96 06:53:48 Test Item Value Reference Range Interpretation Comments Urine culture (test code = SEE COMMENT [id number]) [facility] KakoiovrCfhskz1354-69-83 16:20:31Isabelle Wetzel MD 07/23/2020 11:21 AMAirway Date/Time: [...] RSI: No Number of Attempts at Approach: 0Dkhyed4853-61-85 01:07:00Megan Felix CRNA 07/11/2020 6:28 PMAirway Date/Time: [...] of Attempts at Approach: 1XR Abdomen 1 Ao1530-41-94 01:32:09EXAMINATION: XR ABDOMEN 1 VW CLINICAL HISTORY: Abdominal pain and PD Cath COMPARISON: None. FINDINGS: There is an aortic stent graft. Opaque catheter overlies the lower abdomen with the coiled portion overlying the left iliac wing. There is increase in the amount of gas and feces in the colon. IMPRESSION:As above [facility]-[id number] Interface, Radiology Results Incoming - 07/10/2020 8:35 PM CDT EXAMINATION: XR ABDOMEN 1 VWCLINICAL HISTORY: Abdominal pain and PD CathCOMPARISON: None.FINDINGS:There is an aortic stent graft.Opaque catheter overlies the lower abdomen with the coiled portion overlying the left iliac wing.There is increase in the amount of gas and feces in the colon.IMPRESSION:As [facility]PAR[facility]-[id number] HospitalANEREH[facility] [id number] 12:59:00 Test Item Value Reference Range Interpretation Comments Ferritin Lvl (test code = Ferritin Lvl) 228 22-275 [facility]2021-02-03 12:59:00 Test Item Value Reference Range Interpretation Comments Iron (test code = Iron) 33 [facility]2021-02-03 12:59:00 Test Item Value Reference Range Interpretation Comments TIBC (test code = TIBC) 262 [facility]2021-02-03 12:59:00 Test Item Value Reference Range Interpretation Comments % Satur Fe (test code = % Satur Fe) 13 [place] 435751-02-03 12:59:00 Test Item Value Reference Range Interpretation Comments Creatinine Lvl (test code = Creatinine 5.71 0.50-1.40 Lvl) [place] 435751-02-03 12:59:00 Test Item Value Reference Range Interpretation Comments eGFR (test code = eGFR) 10 [place] 435751-02-03 12:59:00 Test Item Value Reference Range Interpretation Comments Glucose Lvl (test code = Glucose Lvl) 72 70-99 [place] 435751-02-03 12:59:00 Test Item Value Reference Range Interpretation Comments BUN (test code = BUN) 47 7-22 [place] 435751-02-03 12:59:00 Test Item Value Reference Range Interpretation Comments Creatinine Lvl (test code = Creatinine 5.59 0.50-1.40 Lvl) [place] 435751-02-03 12:59:00 Test Item Value Reference Range Interpretation Comments Sodium Lvl (test code = Sodium Lvl) 143 135-145 [place] 435751-02-03 12:59:00 Test Item Value Reference Range Interpretation Comments Potassium Lvl (test code = Potassium 4.0 3.5-5.1 Lvl) [place] 435751-02-03 12:59:00 Test Item Value Reference Range Interpretation Comments Chloride Lvl (test code = Chloride Lvl) 110 95-109 [place] [address]-02-03 12:59:00 Test Item Value Reference Range Interpretation Comments CO2 (test code = CO2) 24 24-32 [place] 435751-02-03 12:59:00 Test Item Value Reference Range Interpretation Comments Calcium Lvl (test code = Calcium Lvl) 8.7 8.5-10.5 [place] [address]-02-03 12:59:00 Test Item Value Reference Range Interpretation Comments Total Protein (test code = Total 7.4 6.4-8.4 Protein) [place] 435751-02-03 12:59:00 Test Item Value Reference Range Interpretation Comments Albumin Lvl (test code = Albumin Lvl) 3.5 3.5-5.0 [place] 435751-02-03 12:59:00 Test Item Value Reference Range Interpretation Comments ALT (test code = ALT) 12 See_Comment [Auto mated message] The system which ge nerated this result transmit nicko reference range : <=65. The reference range was not used to interpr et this result as adebayo l/abnormal. [place] [address]-02-03 12:59:00 Test Item Value Reference Range Interpretation Comments AST (test code = AST) 14 See_Comment [Auto mated message] The system which ge nerated this result transmit nicko reference range : <=37. The reference range was not used to interpr et this result as adebayo l/abnormal. [place] 435751-02-03 12:59:00 Test Item Value Reference Range Interpretation Comments Alk Phos (test code = Alk Phos) 58 39-136 [place] [address]-02-03 12:59:00 Test Item Value Reference Range Interpretation Comments Bili Total (test code = Bili Total) 0.3 0.2-1.[address]02-03 12:59:00 Test Item Value Reference Range Interpretation Comments AGAP (test code = AGAP) 13.0 10.0-20.0 [facility] [id number] 12:59:00 Test Item Value Reference Range Interpretation Comments B/C Ratio (test code = B/C Ratio) 8 1 6-25 [facility]2021-02-03 12:59:00 Test Item Value Reference Range Interpretation Comments Globulin (test code = Globulin) 3.9 2.7-4.2 [facility]2021-02-03 12:59:00 Test Item Value Reference Range Interpretation Comments A/G Ratio (test code = A/G Ratio) 0.9 1 0.7-1.6 [facility]enGrayBugFORMERLY [facility]ILOQ0860-[facility]-01 12:59:00 Test Item Value Reference Range Interpretation Comments eGFR (test code = eGFR) 10 [facility]2021-02-03 12:59:00 Test Item Value Reference Range Interpretation Comments Magnesium Lvl (test code = Magnesium 1.5 1.8-2.4 Lvl) [facility] CenterAva[facility] Holdings [id number] 12:59:00 Test Item Value Reference Range Interpretation Comments Phosphorus (test code = Phosphorus) 5.0 2.5-4.5 [facility] [id number] 12:59:00 Test Item Value Reference Range Interpretation Comments Uric Acid (test code = Uric Acid) 5.8 3.8-8.0 [facility] JOVTZ1422-78-12 12:59:00 Test Item Value Reference Range Interpretation Comments Vitamin D, 25-OH, Total (test code = 33 Vitamin D, 25-OH, Total) [facility] CenterNetsmart Technologies GKYCTI2563-86-27 12:59:00 Test Item Value Reference Range Interpretation Comments Phencyclidine Scr (test code = Negative Phencyclidine Scr) [facility] KQLCXM7768-46-03 12:59:00 Test Item Value Reference Range Interpretation Comments Kaitlin Scr (test code = Kaitlin Scr) Negative [facility] [id number] 12:59:00 Test Item Value Reference Range Interpretation Comments Cannab Scr (test code = Cannab Scr) Negative [facility]en[facility]Bug[facility] AZCXOF9149-13-09 12:59:00 Test Item Value Reference Range Interpretation Comments Methadone Scr (test code = Methadone Negative Scr) [facility] VBBWVN4927-98-03 12:59:00 Test Item Value Reference Range Interpretation Comments Cocaine Scr (test code = Cocaine Negative Scr) [facility] NKKHJI4783-52-02 12:59:00 Test Item Value Reference Range Interpretation Comments Benzodiaz Scr (test code = Benzodiaz Negative Scr) [facility]2021-02-03 12:59:00 Test Item Value Reference Range Interpretation Comments Amph Scr (test code = Amph Scr) Negative [facility]2021-02-03 12:59:00 Test Item Value Reference Range Interpretation Comments Opiate Scr (test code = Opiate Scr) Negative [facility]2021-02-03 12:59:00 Test Item Value Reference Range Interpretation Comments 6-Acetylmor Scr (test code = Negative 6-Acetylmor Scr) [facility]2021-02-03 12:59:00 Test Item Value Reference Range Interpretation Comments Cryptococcal Ag (test Negative (04/04/20 code = Cryptococcal Ag) 6:59 AM) [facility]2021-02-03 12:59:00 Test Item Value Reference Range Interpretation Comments Histo Yeast Ab (test code = Histo Yeast <1:8 Ab) [facility]2021-02-03 12:59:00 Test Item Value Reference Range Interpretation Comments Histo mycel Ab (test code = Histo mycel <1:8 Ab) [facility]2021-02-03 12:59:00 Test Item Value Reference Range Interpretation Comments Blastomyces Ab (test code = Negative Blastomyces Ab) [facility]2021-02-03 12:59:00 Test Item Value Reference Range Interpretation Comments Coccid Ab IgM (test code = Coccid Ab NEGATIVE IgM) [facility]2021-02-03 12:59:00 Test Item Value Reference Range Interpretation Comments Coccid Ab IgG (test code = Coccid Ab NEGATIVE IgG) [facility] [facility]78[facility] 12:59:00 Test Item Value Reference Range Interpretation Comments Segs (test code = Segs) 65.6 45.0-75.[address] [facility]HwhkhurCWXXJGDEJW9323-77-67 12:59:00 Test Item Value Reference Range Interpretation Comments Lymphocytes (test code = Lymphocytes) 21.6 20.0-40.0 [place] 045031-02-03 12:59:00 Test Item Value Reference Range Interpretation Comments Monocytes (test code = Monocytes) 8.5 2.0-12.0 [place] 045031-02-03 12:59:00 Test Item Value Reference Range Interpretation Comments Eosinophils (test code = 3.5 See_Comment [A utomated message] The Eosinophils) system which ge nerated this result tra nsmitted reference range : <=4.0. The reference r carlos was not used to int erpret this result as normal/abnormal . [place] [address]-02-03 12:59:00 Test Item Value Reference Range Interpretation Comments Basophils (test code = 0.8 See_Comment [Aut omated message] The Basophils) system which ge nerated this result tra nsmitted reference range : <=1.0. The reference r carlos was not used to int erpret this result as normal/abnormal . [place] 045031-02-03 12:59:00 Test Item Value Reference Range Interpretation Comments Neutrophils # (test code = Neutrophils 5.1 1.5-8.1 #) [place] 045031-02-03 12:59:00 Test Item Value Reference Range Interpretation Comments Lymphocytes # (test code = Lymphocytes 1.7 1.0-5.5 #) [place] 045031-02-03 12:59:00 Test Item Value Reference Range Interpretation Comments Monocytes # (test code 0.7 See_Comment [Aut omated message] The = Monocytes #) system which generated this result tra nsmitted reference range : <=0.8. The reference r carlos was not used to int erpret this result as normal/abnormal . [place] 045031-02-03 12:59:00 Test Item Value Reference Range Interpretation Comments Eosinophils # (test code 0.3 See_Comment [A utomated message] The = Eosinophils #) system whic h generated this result tra nsmitted reference range : <=0.5. The reference r carlos was not used to int erpret this result as normal/abnormal . [place] 045031-02-03 12:59:00 Test Item Value Reference Range Interpretation Comments Basophils # (test code 0.1 See_Comment [Aut omated message] The = Basophils #) system which generated this result tra nsmitted reference range : <=0.2. The reference r carlos was not used to int erpret this result as normal/abnormal . [facility] HospitalEzlpdxcFNGIZRWBEE1103-51-27 12:59:00 Test Item Value Reference Range Interpretation Comments PT (test code = PT) 12.8 s 12.0-14.7 [place] 045031-02-03 12:59:00 Test Item Value Reference Range Interpretation Comments INR (test code = INR) 0.97 1 0.85-1.17 [place] 045031-02-03 12:59:00 Test Item Value Reference Range Interpretation Comments PTT (test code = PTT) 32.2 s 22.9-35.8 [place] 045031-02-03 12:59:00 Test Item Value Reference Range Interpretation Comments WBC (test code = WBC) 7.8 3.7-10.4 [place] 045031-02-03 12:59:00 Test Item Value Reference Range Interpretation Comments RBC (test code = RBC) 3.89 4.70-6.[address] HospitalOtlxazuFOCUQBMVHO7980-69-42 12:59:00 Test Item Value Reference Range Interpretation Comments Hgb (test code = Hgb) 11.5 14.0-18.0 [place] 045031-02-03 12:59:00 Test Item Value Reference Range Interpretation Comments Hct (test code = Hct) 35.9 42.0-54.0 [place] 045031-02-03 12:59:00 Test Item Value Reference Range Interpretation Comments MCV (test code = MCV) 92.5 80.0-94.0 [place] 045031-02-03 12:59:00 Test Item Value Reference Range Interpretation Comments MCH (test code = MCH) 29.5 pg 27.0-31.0 [place] 045031-02-03 12:59:00 Test Item Value Reference Range Interpretation Comments MCHC (test code = MCHC) 31.9 32.0-36.0 [place] 045031-02-03 12:59:00 Test Item Value Reference Range Interpretation Comments RDW (test code = RDW) 15.3 11.5-14.5 [place] 045031-02-03 12:59:00 Test Item Value Reference Range Interpretation Comments Platelet (test code = Platelet) 196 133-450 [facility] CenterThbhtllXLUYDUPMEF9270-59-51 12:59:00 Test Item Value Reference Range Interpretation Comments MPV (test code = MPV) 9.0 7.4-10.4 [place] 123881-02-03 12:59:00 Test Item Value Reference Range Interpretation Comments Cystatin C (test code = Cystatin C) 3.96 [place] 123881-02-03 12:59:00 Test Item Value Reference Range Interpretation Comments eGFR Cystatin-based (test code = eGFR 12 Cystatin-based) [place] 123881-02-03 12:59:00 Test Item Value Reference Range Interpretation Comments Albumin % (test code = Albumin %) 52.3 55.8-66.1 [place] 123881-02-03 12:59:00 Test Item Value Reference Range Interpretation Comments Alpha 1 % (test code = Alpha 1 %) 6.2 2.8-4.9 [place] 123881-02-03 12:59:00 Test Item Value Reference Range Interpretation Comments Alpha 2 % (test code = Alpha 2 %) 12.7 7.0-11.9 [place] [address]-02-03 12:59:00 Test Item Value Reference Range Interpretation Comments Beta % (test code = Beta %) 11.9 7.8-13.7 [place] [address]-02-03 12:59:00 Test Item Value Reference Range Interpretation Comments Gamma % (test code = Gamma %) 16.9 11.1-18.7 [place] [address]-02-03 12:59:00 Test Item Value Reference Range Interpretation Comments Albumin (SPE) (test code = Albumin 3.87 3.57-5.55 (SPE)) [place] 123881-02-03 12:59:00 Test Item Value Reference Range Interpretation Comments Alpha 1 Glob (test code = Alpha 1 Glob) 0.46 0.18-0.41 [place] [address]-02-03 12:59:00 Test Item Value Reference Range Interpretation Comments Alpha 2 Glob (test code = Alpha 2 Glob) 0.94 0.45-1.00 [place] [address]-02-03 12:59:00 Test Item Value Reference Range Interpretation Comments Beta Glob (test code = Beta Glob) 0.88 0.50-1.15 [facility] CenterDwjaqwqKHZBKSYXZP9372-57-78 12:59:00 Test Item Value Reference Range Interpretation Comments Gamma Glob (test code = Gamma Glob) 1.25 0.71-1.57 [facility] CenterAmihvpbEKQNFRSYPJ2711-81-52 12:59:00 Test Item Value Reference Range Interpretation Comments Tot Prot (SPE) (test code = Tot Prot 7.4 6.4-8.4 (SPE)) [facility]RyanmvcISRCSMGBHJ0902-20-85 12:59:00 Test Item Value Reference Range Interpretation [...] and concur with the resident's interpretation. CPT 03727-LJ [facility] CenterHbwnwryCLJUPQKTOJ8844-17-17 12:59:00 Test Item Value Reference Range Interpretation Comments Rennert Free Light Chains (test code = 119.9 Rennert Free Light Chains) [place] 123881-02-03 12:59:00 Test Item Value Reference Range Interpretation Comments Lambda Free Light Chains (test code = 69.6 Lambda Free Light Chains) [place] 123881-02-03 12:59:00 Test Item Value Reference Range Interpretation Comments Rennert/Lambda Free Light Chains Ratio 1.72 1 (test code = Rennert/Lambda Free Light Chains Ratio) [facility] CenterZbumcqwANIFBBYCNW3674-90-74 12:59:00 Test Item Value Reference Range Interpretation Comments CMV IgG (test code = CMV IgG) no gt [facility] CenterTpzkyvnEZJBRICYVO4695-54-74 12:59:00 Test Item Value Reference Range Interpretation Comments EBV VCA IgG (test code = EBV VCA IgG) 427.00 [facility] CenterRbpwrznAEFQUVKGTO0606-01-57 12:59:00 Test Item Value Reference Range Interpretation Comments HIV Ag/Ab 4th Gen Negative *NA*(04/04/20 (test code = HIV 6:59 AM) Ag/Ab 4th Gen) [facility] TylerPgngxndKMAGFGUOWX9520-41-59 12:59:00 Test Item Value Reference Range Interpretation Comments Hep A Tot (test code = Hep A Tot) REACTIVE [facility] TylerRccymzgFZUPZCFPMV8159-28-86 12:59:00 Test Item Value Reference Range Interpretation Comments Hep Bs Ab (test code = Hep Bs Ab) no gt [facility] TylerSauchddBEOSHIKIIA9672-22-08 12:59:00 Test Item Value Reference Range Interpretation Comments Hep B Core Ab (test code = Hep B NON-REACTIVE Core Ab) [facility] TylerMijpaxuNSWADKVAYE5524-23-19 12:59:00 Test Item Value Reference Range Interpretation Comments Hep Bs Ag (test code = Hep Bs NON-REACTIVE Ag) [facility] TylerSwksgdwXRCXBXLAIZ9478-01-39 12:59:00 Test Item Value Reference Range Interpretation Comments Hep C Ab (test code = Hep C Ab) NON-REACTIVE [place] 123881-02-03 12:59:00 Test Item Value Reference Range Interpretation Comments Hep Signal to Cut-Off (test code = Hep 0.02 1 Signal to Cut-Off) [facility] TylerOmtxdwwBKRJRMPKGA9336-64-07 12:59:00 Test Item Value Reference Range Interpretation Comments HSV 1 IgG (test code = HSV 1 IgG) 23.80 [place] 123881-02-03 12:59:00 Test Item Value Reference Range Interpretation Comments HSV 2 IgG (test code = HSV 2 IgG) no gt [facility] TylerVsxaztyCEVNKVSSDE5384-84-95 12:59:00 Test Item Value Reference Range Interpretation Comments T-Spot.TB (test code = T-Spot.TB) Negative [facility] TylerJhxvtxnIYTEEMESAE2826-34-88 12:59:00 Test Item Value Reference Range Interpretation Comments T-Spot Pnl A Neg Ctrl Corrected (test 0 1 code = T-Spot Pnl A Neg Ctrl Corrected) [facility] TylerWmylvfsRDRXYFGIHN5685-31-24 12:59:00 Test Item Value Reference Range Interpretation Comments T-Spot Pnl B Neg Ctrl Corrected (test 0 1 code = T-Spot Pnl B Neg Ctrl Corrected) [facility] TylerGuzfgemQFHTQTIISM5981-49-66 12:59:00 Test Item Value Reference Range Interpretation Comments T-Spot Neg Ctrl (test code = T-Spot Passed Neg Ctrl) [facility] TylerClmvslaEGWJHBSRCB0499-05-22 12:59:00 Test Item Value Reference Range Interpretation Comments T-Spot Pos Ctrl (test code = T-Spot Passed Pos Ctrl) [facility] TylerHhrtgwcDUZBNZYRCW2701-52-09 12:59:00 Test Item Value Reference Range Interpretation Comments Treponemal Ab (test code Non-Reactive = Treponemal Ab) *NA*(04/04/20 6:59 AM) [facility] TylerGdueyiiKUEQGBJAOW4941-22-21 12:59:00 Test Item Value Reference Range Interpretation Comments Varicella IgG (test code = Varicella 203.70 IgG) [facility] TylerNgnyijvHOXIPLVIBI1384-57-64 12:59:00 Test Item Value Reference Range Interpretation Comments Mumps IgG (test code = Mumps IgG) no gt [facility] TylerIaeyajdBWOUOJMHRT2737-94-64 12:59:00 Test Item Value Reference Range Interpretation Comments Rubella IgG (test code = Rubella IgG) no gt [facility] TylerDrzgpyzFBFJJQQUEE6520-28-53 12:59:00 Test Item Value Reference Range Interpretation Comments Rubeola IgG (test code = Rubeola IgG) 192.00 [facility] TylerKadfzszAWPSLFOJGB8666-30-13 12:59:00 Test Item Value Reference Range Interpretation Comments KAREN Ser Pattern A distinct monoclonal (test code = KAREN Ser band is present in the Pattern) IgM izabella with a corresponding band in the kappa light chain izabella. The polyclonal gamma globulin background is preserved in all lanes. [facility] TylerKwrrvkzZVHNXDJKYM0760-93-91 12:59:00 Test Item Value Reference Range Interpretation [...] and concur with the resident's interpretation. CPT 50137-LB [facility]KildmelHOAPGT0431-66-03 12:59:00 Test Item Value Reference Range Interpretation Comments Trig (test code = Trig) 70 [facility] TexasZgsguvtJHPOID8449-90-76 12:59:00 Test Item Value Reference Range Interpretation Comments Chol (test code = Chol) 102 [facility] TexasUyzvkgdOBFDXC0934-77-98 12:59:00 Test Item Value Reference Range Interpretation Comments HDL (test code = HDL) 33 [facility] TexasXoaaipeOHJNEH2366-83-23 12:59:00 Test Item Value Reference Range Interpretation Comments CHD Risk (test code = CHD Risk) 3.09 1 4.00-7.30 [facility]slBGIUQA8024-49-30 12:59:00 Test Item Value Reference Range Interpretation Comments LDL (Calculated) (test code = LDL 55 (Calculated)) [facility] LnclusoSRUZRY8034-66-70 12:59:00 Test Item Value Reference Range Interpretation Comments VLDL (test code = VLDL) 14 1 [facility]annPAR[facility] - YMXXTSRI9944-13-05 12:59:00 Test Item Value Reference Range Interpretation Comments Strongyloides Antibodies (test code POSITIVE = Strongyloides Antibodies) [facility] McallenannPARATHYROID UGINXUC6025-84-60 12:59:00 Test Item Value Reference Range Interpretation Comments PTH Intact (test code = PTH Intact) 635.6 18.4-80.1 [facility]annREFER[facility] LAB NVUWMXB2897-65-73 12:59:00 Test Item Value Reference Range Interpretation Comments Misc Quest (test code = Misc SEE COMMENT Quest) [facility]enannSPECIAL KZXWVKKXM2583-64-54 12:59:00 Test Item Value Reference Range Interpretation Comments Nicotine Lvl (test code = Nicotine Lvl) no gt [facility]annSPE[facility] NUDROVBWY3381-28-70 12:59:00 Test Item Value Reference Range Interpretation Comments Cotinine Lvl (test code = Cotinine Lvl) no gt [facility]annSPE[facility] RRDOMADGD4949-01-58 12:59:00 Test Item Value Reference Range Interpretation Comments Hgb A1C (test code = Hgb A1C) 6.0 [facility]enannSPECIAL PLDPWQJVE7324-39-26 12:59:00 Test Item Value Reference Range Interpretation Comments PSA (test code = PSA) 1.5 [facility]enannVIRAL - PMAPFWMV2186-43-05 12:59:00 Test Item Value Reference Range Interpretation Comments T cruzi (Chagas) Ab (test code = NONREACTIVE T cruzi (Chagas) Ab) [facility]annVIR[facility] - LVDPOUGZ3533-34-42 12:59:00 Test Item Value Reference Range Interpretation Comments W Nile Ab IgG (test code = W Nile Ab no gt IgG) [facility]annVIR[facility] - MROVGHGO9730-11-41 12:59:00 Test Item Value Reference Range Interpretation Comments W Nile Ab IgM (test code = W Nile Ab no gt IgM) [place] 714711-02-03 12:59:00 Test Item Value Reference Range Interpretation Comments Ferritin Lvl (test code = Ferritin Lvl) 228 22-275 [place] 714711-02-03 12:59:00 Test Item Value Reference Range Interpretation Comments Iron (test code = Iron) 33 [place] 714711-02-03 12:59:00 Test Item Value Reference Range Interpretation Comments TIBC (test code = TIBC) 262 [place] 714711-02-03 12:59:00 Test Item Value Reference Range Interpretation Comments % Satur Fe (test code = % Satur Fe) 13 [place] 435751-02-03 12:59:00 Test Item Value Reference Range Interpretation Comments Creatinine Lvl (test code = Creatinine 5.71 0.50-1.40 Lvl) [place] 435751-02-03 12:59:00 Test Item Value Reference Range Interpretation Comments eGFR (test code = eGFR) 10 [place] 435751-02-03 12:59:00 Test Item Value Reference Range Interpretation Comments Glucose Lvl (test code = Glucose Lvl) 72 70-99 [place] 435751-02-03 12:59:00 Test Item Value Reference Range Interpretation Comments BUN (test code = BUN) 47 7-22 [place] 435751-02-03 12:59:00 Test Item Value Reference Range Interpretation Comments Creatinine Lvl (test code = Creatinine 5.59 0.50-1.40 Lvl) [place] 435751-02-03 12:59:00 Test Item Value Reference Range Interpretation Comments Sodium Lvl (test code = Sodium Lvl) 143 135-145 [place] 435751-02-03 12:59:00 Test Item Value Reference Range Interpretation Comments Potassium Lvl (test code = Potassium 4.0 3.5-5.1 Lvl) [place] 435751-02-03 12:59:00 Test Item Value Reference Range Interpretation Comments Chloride Lvl (test code = Chloride Lvl) 110 95-109 [place] 435751-02-03 12:59:00 Test Item Value Reference Range Interpretation Comments CO2 (test code = CO2) 24 24-32 [place] 435751-02-03 12:59:00 Test Item Value Reference Range Interpretation Comments Calcium Lvl (test code = Calcium Lvl) 8.7 8.5-10.5 [place] 435751-02-03 12:59:00 Test Item Value Reference Range Interpretation Comments Total Protein (test code = Total 7.4 6.4-8.4 Protein) [place] 435751-02-03 12:59:00 Test Item Value Reference Range Interpretation Comments Albumin Lvl (test code = Albumin Lvl) 3.5 3.5-5.0 [place] 435751-02-03 12:59:00 Test Item Value Reference Range Interpretation Comments ALT (test code = ALT) 12 See_Comment [Auto mated message] The system which ge nerated this result transmit nicko reference range : <=65. The reference range was not used to interpr et this result as adebayo l/abnormal. [place] 435751-02-03 12:59:00 Test Item Value Reference Range Interpretation Comments AST (test code = AST) 14 See_Comment [Auto mated message] The system which ge nerated this result transmit nicko reference range : <=37. The reference range was not used to interpr et this result as adebayo l/abnormal. [place] 435751-02-03 12:59:00 Test Item Value Reference Range Interpretation Comments Alk Phos (test code = Alk Phos) 58 39-136 [place] 435751-02-03 12:59:00 Test Item Value Reference Range Interpretation Comments Bili Total (test code = Bili Total) 0.3 0.2-1.3 [place] 435751-02-03 12:59:00 Test Item Value Reference Range Interpretation Comments AGAP (test code = AGAP) 13.0 10.0-20.0 [place] 435751-02-03 12:59:00 Test Item Value Reference Range Interpretation Comments B/C Ratio (test code = B/C Ratio) 8 1 6-25 [place] 435751-02-03 12:59:00 Test Item Value Reference Range Interpretation Comments Globulin (test code = Globulin) 3.9 2.7-4.2 [place] 435751-02-03 12:59:00 Test Item Value Reference Range Interpretation Comments A/G Ratio (test code = A/G Ratio) 0.9 1 0.7-1.6 [facility]2021-02-03 12:59:00 Test Item Value Reference Range Interpretation Comments eGFR (test code = eGFR) 10 [facility]2021-02-03 12:59:00 Test Item Value Reference Range Interpretation Comments Magnesium Lvl (test code = Magnesium 1.5 1.8-2.4 Lvl) [facility]2021-02-03 12:59:00 Test Item Value Reference Range Interpretation Comments Phosphorus (test code = Phosphorus) 5.0 2.5-4.5 [facility]2021-02-03 12:59:00 Test Item Value Reference Range Interpretation Comments Uric Acid (test code = Uric Acid) 5.8 3.8-8.0 [facility] CenterAvaSure Holdings [id number] 12:59:00 Test Item Value Reference Range Interpretation Comments Vitamin D, 25-OH, Total (test code = 33 Vitamin D, 25-OH, Total) [facility] [id number] 12:59:00 Test Item Value Reference Range Interpretation Comments Phencyclidine Scr (test code = Negative Phencyclidine Scr) [facility] [id number] 12:59:00 Test Item Value Reference Range Interpretation Comments Kaitlin Scr (test code = Kaitlin Scr) Negative [facility] [id number] 12:59:00 Test Item Value Reference Range Interpretation Comments Cannab Scr (test code = Cannab Scr) Negative [facility] XLSFPL2028-98-22 12:59:00 Test Item Value Reference Range Interpretation Comments Methadone Scr (test code = Methadone Negative Scr) [facility] CenterDR[facility] SDARNA9338-20-03 12:59:00 Test Item Value Reference Range Interpretation Comments Cocaine Scr (test code = Cocaine Negative Scr) [facility]2021-02-03 12:59:00 Test Item Value Reference Range Interpretation Comments Benzodiaz Scr (test code = Benzodiaz Negative Scr) [facility]2021-02-03 12:59:00 Test Item Value Reference Range Interpretation Comments Amph Scr (test code = Amph Scr) Negative [facility] GXUZNI2364-39-14 12:59:00 Test Item Value Reference Range Interpretation Comments Opiate Scr (test code = Opiate Scr) Negative [facility] RMYTWA5823-02-55 12:59:00 Test Item Value Reference Range Interpretation Comments 6-Acetylmor Scr (test code = Negative 6-Acetylmor Scr) [facility]2021-02-03 12:59:00 Test Item Value Reference Range Interpretation Comments Cryptococcal Ag (test Negative (04/04/20 code = Cryptococcal Ag) 6:59 AM) [facility]2021-02-03 12:59:00 Test Item Value Reference Range Interpretation Comments Histo Yeast Ab (test code = Histo Yeast <1:8 Ab) [facility]2021-02-03 12:59:00 Test Item Value Reference Range Interpretation Comments Histo mycel Ab (test code = Histo mycel <1:8 Ab) [facility]2021-02-03 12:59:00 Test Item Value Reference Range Interpretation Comments Blastomyces Ab (test code = Negative Blastomyces Ab) [facility]2021-02-03 12:59:00 Test Item Value Reference Range Interpretation Comments Coccid Ab IgM (test code = Coccid Ab NEGATIVE IgM) [facility]2021-02-03 12:59:00 Test Item Value Reference Range Interpretation Comments Coccid Ab IgG (test code = Coccid Ab NEGATIVE IgG) [facility] HospitalKvcojxvDLZORVJVJD3845-09-91 12:59:00 Test Item Value Reference Range Interpretation Comments Segs (test code = Segs) 65.6 45.0-75.[address] [facility] HospitalXpgyzfvTWYDMTJUGS9809-12-11 12:59:00 Test Item Value Reference Range Interpretation Comments Lymphocytes (test code = Lymphocytes) 21.6 20.0-40.0 [place] 045031-02-03 12:59:00 Test Item Value Reference Range Interpretation Comments Monocytes (test code = Monocytes) 8.5 2.0-12.0 [place] 045031-02-03 12:59:00 Test Item Value Reference Range Interpretation Comments Eosinophils (test code = 3.5 See_Comment [A utomated message] The Eosinophils) system which ge nerated this result tra nsmitted reference range : <=4.0. The reference r carlos was not used to int erpret this result as normal/abnormal . [facility] HospitalXubgugrJAYJYKCEDB9914-04-67 12:59:00 Test Item Value Reference Range Interpretation Comments Basophils (test code = 0.8 See_Comment [Aut omated message] The Basophils) system which ge nerated this result tra nsmitted reference range : <=1.0. The reference r carlos was not used to int erpret this result as normal/abnormal . [facility] HospitalSlaakyiRKRHLUQQPK5760-39-24 12:59:00 Test Item Value Reference Range Interpretation Comments Neutrophils # (test code = Neutrophils 5.1 1.5-8.1 #) [facility] HospitalNexorvwLZGRDYGJHF3263-60-18 12:59:00 Test Item Value Reference Range Interpretation Comments Lymphocytes # (test code = Lymphocytes 1.7 1.0-5.5 #) [facility] HospitalZrxkzqcPCJFRRIRRO9849-51-16 12:59:00 Test Item Value Reference Range Interpretation Comments Monocytes # (test code 0.7 See_Comment [Aut omated message] The = Monocytes #) system which generated this result tra nsmitted reference range : <=0.8. The reference r carlos was not used to int erpret this result as normal/abnormal . [facility] HospitalEuqzcthXXGEQVXIZC6940-05-62 12:59:00 Test Item Value Reference Range Interpretation Comments Eosinophils # (test code 0.3 See_Comment [A utomated message] The = Eosinophils #) system whic h generated this result tra nsmitted reference range : <=0.5. The reference r carlos was not used to int erpret this result as normal/abnormal . [facility] HospitalApzbvjqBDZRGINRMO6473-02-64 12:59:00 Test Item Value Reference Range Interpretation Comments Basophils # (test code 0.1 See_Comment [Aut omated message] The = Basophils #) system which generated this result tra nsmitted reference range : <=0.2. The reference r carlos was not used to int erpret this result as normal/abnormal . [place] 045031-02-03 12:59:00 Test Item Value Reference Range Interpretation Comments PT (test code = PT) 12.8 s 12.0-14.7 [place] 045031-02-03 12:59:00 Test Item Value Reference Range Interpretation Comments INR (test code = INR) 0.97 1 0.85-1.17 [place] 045031-02-03 12:59:00 Test Item Value Reference Range Interpretation Comments PTT (test code = PTT) 32.2 s 22.9-35.[address] [facility] HospitalZxmzxmrSGAGHLARBP3862-36-99 12:59:00 Test Item Value Reference Range Interpretation Comments WBC (test code = WBC) 7.8 3.7-10.4 [place] 045031-02-03 12:59:00 Test Item Value Reference Range Interpretation Comments RBC (test code = RBC) 3.89 4.70-6.[address] [facility] HospitalElvfvfwAPTXXIOUEW3536-24-24 12:59:00 Test Item Value Reference Range Interpretation Comments Hgb (test code = Hgb) 11.5 14.0-18.0 [place] 045031-02-03 12:59:00 Test Item Value Reference Range Interpretation Comments Hct (test code = Hct) 35.9 42.0-54.0 [place] 045031-02-03 12:59:00 Test Item Value Reference Range Interpretation Comments MCV (test code = MCV) 92.5 80.0-94.[address] [facility] HospitalRcfnjwdXOINRPLBJT7971-43-54 12:59:00 Test Item Value Reference Range Interpretation Comments MCH (test code = MCH) 29.5 pg 27.0-31.[address] [facility]GoqkhmvFNCEIJGHVV9515-45-60 12:59:00 Test Item Value Reference Range Interpretation Comments MCHC (test code = MCHC) 31.9 32.0-36.[address] [facility] HospitalCemnmnjSTNYRGVTOT8602-35-03 12:59:00 Test Item Value Reference Range Interpretation Comments RDW (test code = RDW) 15.3 11.5-14.[address] [facility] HospitalUgjtkapFSQQXEXYKB5656-25-78 12:59:00 Test Item Value Reference Range Interpretation Comments Platelet (test code = Platelet) 196 133-[address] [facility] HospitalNvpriymAOPZTLZGFD5045-97-90 12:59:00 Test Item Value Reference Range Interpretation Comments MPV (test code = MPV) 9.0 7.4-10.4 [facility]nUXACXKYIRJ9902-96-72 12:59:00 Test Item Value Reference Range Interpretation Comments Cystatin C (test code = Cystatin C) 3.96 [facility] TylerGuhdgizQDBKTUCDRX9892-49-37 12:59:00 Test Item Value Reference Range Interpretation Comments eGFR Cystatin-based (test code = eGFR 12 Cystatin-based) [facility] TylerHyaxwoyONIOKVKZAH0036-60-14 12:59:00 Test Item Value Reference Range Interpretation Comments Albumin % (test code = Albumin %) 52.3 55.8-66.1 [place] 123881-02-03 12:59:00 Test Item Value Reference Range Interpretation Comments Alpha 1 % (test code = Alpha 1 %) 6.2 2.8-4.9 [place] 123881-02-03 12:59:00 Test Item Value Reference Range Interpretation Comments Alpha 2 % (test code = Alpha 2 %) 12.7 7.0-11.9 [place] 123881-02-03 12:59:00 Test Item Value Reference Range Interpretation Comments Beta % (test code = Beta %) 11.9 7.8-13.7 [place] 123881-02-03 12:59:00 Test Item Value Reference Range Interpretation Comments Gamma % (test code = Gamma %) 16.9 11.1-18.7 [place] 123881-02-03 12:59:00 Test Item Value Reference Range Interpretation Comments Albumin (SPE) (test code = Albumin 3.87 3.57-5.55 (SPE)) [facility] TylerRicmlcaRWZMHHBYPZ8081-48-11 12:59:00 Test Item Value Reference Range Interpretation Comments Alpha 1 Glob (test code = Alpha 1 Glob) 0.46 0.18-0.41 [facility] TylerOyilybnKVGQXAMMFK7989-79-46 12:59:00 Test Item Value Reference Range Interpretation Comments Alpha 2 Glob (test code = Alpha 2 Glob) 0.94 0.45-1.00 [place] 123881-02-03 12:59:00 Test Item Value Reference Range Interpretation Comments Beta Glob (test code = Beta Glob) 0.88 0.50-1.15 [place] 123881-02-03 12:59:00 Test Item Value Reference Range Interpretation Comments Gamma Glob (test code = Gamma Glob) 1.25 0.71-1.57 [place] 123881-02-03 12:59:00 Test Item Value Reference Range Interpretation Comments Tot Prot (SPE) (test code = Tot Prot 7.4 6.4-8.4 (SPE)) [facility] TylerTawtyxtHYQWCQGXYM1944-08-85 12:59:00 Test Item Value Reference Range Interpretation [...] and concur with the resident's interpretation. CPT 98933-WX [facility] CenterHmhpwaeFJHGOIPLCW1239-72-08 12:59:00 Test Item Value Reference Range Interpretation Comments Rennert Free Light Chains (test code = 119.9 Rennert Free Light Chains) [place] 123881-02-03 12:59:00 Test Item Value Reference Range Interpretation Comments Lambda Free Light Chains (test code = 69.6 Lambda Free Light Chains) [place] 123881-02-03 12:59:00 Test Item Value Reference Range Interpretation Comments Rennert/Lambda Free Light Chains Ratio 1.72 1 (test code = Rennert/Lambda Free Light Chains Ratio) [facility] CenterIuqfwgmMSNTWPYRFA1310-58-70 12:59:00 Test Item Value Reference Range Interpretation Comments CMV IgG (test code = CMV IgG) no gt [facility] TylerTctcwxeQYMSJIXJYN1488-15-26 12:59:00 Test Item Value Reference Range Interpretation Comments EBV VCA IgG (test code = EBV VCA IgG) 427.00 [place] [address]-02-03 12:59:00 Test Item Value Reference Range Interpretation Comments HIV Ag/Ab 4th Gen Negative *NA*(04/04/20 (test code = HIV 6:59 AM) Ag/Ab 4th Gen) [facility] CenterCewsyftTICAZROPDY0825-38-38 12:59:00 Test Item Value Reference Range Interpretation Comments Hep A Tot (test code = Hep A Tot) [facility]ACTIVE [facility] TylerMldpheqDZKWQCCSCM7500-46-91 12:59:00 Test Item Value Reference Range Interpretation Comments Hep Bs Ab (test code = Hep Bs Ab) no gt [facility] CenterGjbfgjoFDUHTTRXOX4532-72-22 12:59:00 Test Item Value Reference Range Interpretation Comments Hep B Core Ab (test code = Hep B NON-REACTIVE Core Ab) [place] 123881-02-03 12:59:00 Test Item Value Reference Range Interpretation Comments Hep Bs Ag (test code = Hep Bs NON-REACTIVE Ag) [place] 123881-02-03 12:59:00 Test Item Value Reference Range Interpretation Comments Hep C Ab (test code = Hep C Ab) NON-REACTIVE [place] 123881-02-03 12:59:00 Test Item Value Reference Range Interpretation Comments Hep Signal to Cut-Off (test code = Hep 0.02 1 Signal to Cut-Off) [place] 123881-02-03 12:59:00 Test Item Value Reference Range Interpretation Comments HSV 1 IgG (test code = HSV 1 IgG) 23.80 [place] [address]-02-03 12:59:00 Test Item Value Reference Range Interpretation Comments HSV 2 IgG (test code = HSV 2 IgG) no gt [place] 123881-02-03 12:59:00 Test Item Value Reference Range Interpretation Comments T-Spot.TB (test code = T-Spot.TB) Negative [place] 123881-02-03 12:59:00 Test Item Value Reference Range Interpretation Comments T-Spot Pnl A Neg Ctrl Corrected (test 0 1 code = T-Spot Pnl A Neg Ctrl Corrected) [place] [address]-02-03 12:59:00 Test Item Value Reference Range Interpretation Comments T-Spot Pnl B Neg Ctrl Corrected (test 0 1 code = T-Spot Pnl B Neg Ctrl Corrected) [place] [address]-02-03 12:59:00 Test Item Value Reference Range Interpretation Comments T-Spot Neg Ctrl (test code = T-Spot Passed Neg Ctrl) [place] 123881-02-03 12:59:00 Test Item Value Reference Range Interpretation Comments T-Spot Pos Ctrl (test code = T-Spot Passed Pos Ctrl) [place] [address]-02-03 12:59:00 Test Item Value Reference Range Interpretation Comments Treponemal Ab (test code Non-Reactive = Treponemal Ab) *NA*(04/04/20 6:59 AM) [place] [address]-02-03 12:59:00 Test Item Value Reference Range Interpretation Comments Varicella IgG (test code = Varicella 203.70 IgG) [place] 123881-02-03 12:59:00 Test Item Value Reference Range Interpretation Comments Mumps IgG (test code = Mumps IgG) no gt [facility]BxyakjdEVWYGUOHUZ2266-02-80 12:59:00 Test Item Value Reference Range Interpretation Comments Rubella IgG (test code = Rubella IgG) no gt [facility] McallenGqfycccCAJBYKAANW7888-88-56 12:59:00 Test Item Value Reference Range Interpretation Comments Rubeola IgG (test code = Rubeola IgG) 192.00 [facility] CenterNjyazknUZPRULPOGI9853-70-75 12:59:00 Test Item Value Reference Range Interpretation Comments KAREN Ser Pattern A distinct monoclonal (test code = KAREN Ser band is present in the Pattern) IgM izabella with a corresponding band in the kappa light chain izabella. The polyclonal gamma globulin background is preserved in all lanes. [facility] CenterMjmidxiCXQAFZCRWW0405-69-34 12:59:00 Test Item Value Reference Range Interpretation [...] and concur with the resident's interpretation. CPT 44422-AX [facility] CenterKriiknaERIVUP8476-94-46 12:59:00 Test Item Value Reference Range Interpretation Comments Trig (test code = Trig) 70 [facility] CenterKsdywcfOARNWL3898-03-84 12:59:00 Test Item Value Reference Range Interpretation Comments Chol (test code = Chol) 102 [facility] CenterMgewmkmLAJIME0531-12-63 12:59:00 Test Item Value Reference Range Interpretation Comments HDL (test code = HDL) 33 [facility] CenterXgdlcreWHKWEN2214-99-56 12:59:00 Test Item Value Reference Range Interpretation Comments CHD Risk (test code = CHD Risk) 3.09 1 4.00-7.30 [facility] CenterHhewqipVPEDEC4385-44-48 12:59:00 Test Item Value Reference Range Interpretation Comments LDL (Calculated) (test code = LDL 55 (Calculated)) [facility] CenterZvpthznCKEXDW7925-20-02 12:59:00 Test Item Value Reference Range Interpretation Comments VLDL (test code = VLDL) 14 1 [facility] - FSWIBAMD4278-68-71 12:59:00 Test Item Value Reference Range Interpretation Comments Strongyloides Antibodies (test code POSITIVE = Strongyloides Antibodies) [facility]enannPARATHYROID THJVZBX1156-13-18 12:59:00 Test Item Value Reference Range Interpretation Comments PTH Intact (test code = PTH Intact) 635.6 18.4-80.1 [facility] QLLJHQW6988-31-01 12:59:00 Test Item Value Reference Range Interpretation Comments Misc Quest (test code = Misc SEE COMMENT Quest) [facility] GJBLPFAQH5752-91-56 12:59:00 Test Item Value Reference Range Interpretation Comments Nicotine Lvl (test code = Nicotine Lvl) no gt [facility] RZTBIFFSK0560-81-24 12:59:00 Test Item Value Reference Range Interpretation Comments Cotinine Lvl (test code = Cotinine Lvl) no gt [facility]2021-02-03 12:59:00 Test Item Value Reference Range Interpretation Comments Hgb A1C (test code = Hgb A1C) 6.0 [facility]2021-02-03 12:59:00 Test Item Value Reference Range Interpretation Comments PSA (test code = PSA) 1.5 [facility] CenterVIRAL - [id number] 12:59:00 Test Item Value Reference Range Interpretation Comments T cruzi (Chagas) Ab (test code = NONREACTIVE T cruzi ([place]as) Ab) [facility] - [id number] 12:59:00 Test Item Value Reference Range Interpretation Comments W Nile Ab IgG (test code = W Nile Ab no gt IgG) [facility] - [id number] 12:59:00 Test Item Value Reference Range Interpretation Comments W Nile Ab IgM (test code = W Nile Ab no gt IgM) [facility] [id number] 12:59:00 Test Item Value Reference Range Interpretation Comments Ferritin Lvl (test code = Ferritin Lvl) 228 22-275 [facility] TCJXT0196-00-20 12:59:00 Test Item Value Reference Range Interpretation Comments Iron (test code = Iron) 33 [facility] CZLOT7569-07-37 12:59:00 Test Item Value Reference Range Interpretation Comments TIBC (test code = TIBC) 262 [facility] [id number] 12:59:00 Test Item Value Reference Range Interpretation Comments % Satur Fe (test code = % Satur Fe) 13 [facility]2021-02-03 12:59:00 Test Item Value Reference Range Interpretation Comments Creatinine Lvl (test code = Creatinine 5.71 0.50-1.40 Lvl) [place] 435751-02-03 12:59:00 Test Item Value Reference Range Interpretation Comments eGFR (test code = eGFR) 10 [place] 435751-02-03 12:59:00 Test Item Value Reference Range Interpretation Comments Glucose Lvl (test code = Glucose Lvl) 72 70-99 [place] 435751-02-03 12:59:00 Test Item Value Reference Range Interpretation Comments BUN (test code = BUN) 47 7-22 [place] 435751-02-03 12:59:00 Test Item Value Reference Range Interpretation Comments Creatinine Lvl (test code = Creatinine 5.59 0.50-1.40 Lvl) [place] 435751-02-03 12:59:00 Test Item Value Reference Range Interpretation Comments Sodium Lvl (test code = Sodium Lvl) 143 135-145 [place] 435751-02-03 12:59:00 Test Item Value Reference Range Interpretation Comments Potassium Lvl (test code = Potassium 4.0 3.5-5.1 Lvl) [facility]2021-02-03 12:59:00 Test Item Value Reference Range Interpretation Comments Chloride Lvl (test code = Chloride Lvl) 110 95-109 [place] 435751-02-03 12:59:00 Test Item Value Reference Range Interpretation Comments CO2 (test code = CO2) 24 24-32 [place] 435751-02-03 12:59:00 Test Item Value Reference Range Interpretation Comments Calcium Lvl (test code = Calcium Lvl) 8.7 8.5-10.5 [place] 435751-02-03 12:59:00 Test Item Value Reference Range Interpretation Comments Total Protein (test code = Total 7.4 6.4-8.4 Protein) [facility]2021-02-03 12:59:00 Test Item Value Reference Range Interpretation Comments Albumin Lvl (test code = Albumin Lvl) 3.5 3.5-5.0 [place] 435751-02-03 12:59:00 Test Item Value Reference Range Interpretation Comments ALT (test code = ALT) 12 See_Comment [Auto mated message] The system which ge nerated this result transmit nicko reference range : <=65. The reference range was not used to interpr et this result as adebayo l/abnormal. [facility] [employer] [id number] 12:59:00 Test Item Value Reference Range Interpretation Comments AST (test code = AST) 14 See_Comment [Auto mated message] The system which ge nerated this result transmit nicko reference range : <=37. The reference range was not used to interpr et this result as adebayo l/abnormal. [facility] [employer] [id number] 12:59:00 Test Item Value Reference Range Interpretation Comments Alk Phos (test code = Alk Phos) 58 39-136 [facility] [employer] [id number] 12:59:00 Test Item Value Reference Range Interpretation Comments Bili Total (test code = Bili Total) 0.3 0.2-1.3 [facility] [employer] [id number] 12:59:00 Test Item Value Reference Range Interpretation Comments AGAP (test code = AGAP) 13.0 10.0-20.0 [facility] [employer] [id number] 12:59:00 Test Item Value Reference Range Interpretation Comments B/C Ratio (test code = B/C Ratio) 8 1 6-25 [facility] [employer] [id number] 12:59:00 Test Item Value Reference Range Interpretation Comments Globulin (test code = Globulin) 3.9 2.7-4.2 [facility] [employer] [id number] 12:59:00 Test Item Value Reference Range Interpretation Comments A/G Ratio (test code = A/G Ratio) 0.9 1 0.7-1.6 [facility] [employer] [id number] 12:59:00 Test Item Value Reference Range Interpretation Comments eGFR (test code = eGFR) 10 [facility] [employer] [id number] 12:59:00 Test Item Value Reference Range Interpretation Comments Magnesium Lvl (test code = Magnesium 1.5 1.8-2.4 Lvl) [facility] [employer] [id number] 12:59:00 Test Item Value Reference Range Interpretation Comments Phosphorus (test code = Phosphorus) 5.0 2.5-4.5 [facility] [id number] 12:59:00 Test Item Value Reference Range Interpretation Comments Uric Acid (test code = Uric Acid) 5.8 3.8-8.0 [facility] [id number] 12:59:00 Test Item Value Reference Range Interpretation Comments Vitamin D, 25-OH, Total (test code = 33 Vitamin D, 25-OH, Total) [facility] [id number] 12:59:00 Test Item Value Reference Range Interpretation Comments Phencyclidine Scr (test code = Negative Phencyclidine Scr) [facility] [id number] 12:59:00 Test Item Value Reference Range Interpretation Comments Kaitlin Scr (test code = Kaitlin Scr) Negative [facility] [id number] 12:59:00 Test Item Value Reference Range Interpretation Comments Cannab Scr (test code = Cannab Scr) Negative [facility] [id number] 12:59:00 Test Item Value Reference Range Interpretation Comments Methadone Scr (test code = Methadone Negative Scr) [facility] [id number] 12:59:00 Test Item Value Reference Range Interpretation Comments Cocaine Scr (test code = Cocaine Negative Scr) [facility] [id number] 12:59:00 Test Item Value Reference Range Interpretation Comments Benzodiaz Scr (test code = Benzodiaz Negative Scr) [facility] [id number] 12:59:00 Test Item Value Reference Range Interpretation Comments Amph Scr (test code = Amph Scr) Negative [facility] [id number] 12:59:00 Test Item Value Reference Range Interpretation Comments Opiate Scr (test code = Opiate Scr) Negative [facility] [id number] 12:59:00 Test Item Value Reference Range Interpretation Comments 6-Acetylmor Scr (test code = Negative 6-Acetylmor Scr) [facility] CenterFUNGAL - [id number] 12:59:00 Test Item Value Reference Range Interpretation Comments Cryptococcal Ag (test Negative (04/04/20 code = Cryptococcal Ag) 6:59 AM) [facility] [id number] 12:59:00 Test Item Value Reference Range Interpretation Comments Histo Yeast Ab (test code = Histo Yeast <1:8 Ab) [facility] 12:59:00 Test Item Value Reference Range Interpretation Comments Histo mycel Ab (test code = Histo mycel <1:8 Ab) [facility]2021-02-03 12:59:00 Test Item Value Reference Range Interpretation Comments Blastomyces Ab (test code = Negative Blastomyces Ab) [facility]2021-02-03 12:59:00 Test Item Value Reference Range Interpretation Comments Coccid Ab IgM (test code = Coccid Ab NEGATIVE IgM) [facility]2021-02-03 12:59:00 Test Item Value Reference Range Interpretation Comments Coccid Ab IgG (test code = Coccid Ab NEGATIVE IgG) [place] 045031-02-03 12:59:00 Test Item Value Reference Range Interpretation Comments Segs (test code = Segs) 65.6 45.0-75.0 [place] 045031-02-03 12:59:00 Test Item Value Reference Range Interpretation Comments Lymphocytes (test code = Lymphocytes) 21.6 20.0-40.0 [place] 045031-02-03 12:59:00 Test Item Value Reference Range Interpretation Comments Monocytes (test code = Monocytes) 8.5 2.0-12.0 [place] 045031-02-03 12:59:00 Test Item Value Reference Range Interpretation Comments Eosinophils (test code = 3.5 See_Comment [A utomated message] The Eosinophils) system which ge nerated this result tra nsmitted reference range : <=4.0. The reference r carlos was not used to int erpret this result as normal/abnormal . [place] 045031-02-03 12:59:00 Test Item Value Reference Range Interpretation Comments Basophils (test code = 0.8 See_Comment [Aut omated message] The Basophils) system which ge nerated this result tra nsmitted reference range : <=1.0. The reference r carlos was not used to int erpret this result as normal/abnormal . [place] 045031-02-03 12:59:00 Test Item Value Reference Range Interpretation Comments Neutrophils # (test code = Neutrophils 5.1 1.5-8.1 #) [place] 045031-02-03 12:59:00 Test Item Value Reference Range Interpretation Comments Lymphocytes # (test code = Lymphocytes 1.7 1.0-5.5 #) [place] 045031-02-03 12:59:00 Test Item Value Reference Range Interpretation Comments Monocytes # (test code 0.7 See_Comment [Aut omated message] The = Monocytes #) system which generated this result tra nsmitted reference range : <=0.8. The reference r carlos was not used to int erpret this result as normal/abnormal . [place] 045031-02-03 12:59:00 Test Item Value Reference Range Interpretation Comments Eosinophils # (test code 0.3 See_Comment [A utomated message] The = Eosinophils #) system whic h generated this result tra nsmitted reference range : <=0.5. The reference r carlos was not used to int erpret this result as normal/abnormal . [place] 045031-02-03 12:59:00 Test Item Value Reference Range Interpretation Comments Basophils # (test code 0.1 See_Comment [Aut omated message] The = Basophils #) system which generated this result tra nsmitted reference range : <=0.2. The reference r carlos was not used to int erpret this result as normal/abnormal . [place] 045031-02-03 12:59:00 Test Item Value Reference Range Interpretation Comments PT (test code = PT) 12.8 s 12.0-14.7 [place] 045031-02-03 12:59:00 Test Item Value Reference Range Interpretation Comments INR (test code = INR) 0.97 1 0.85-1.17 [place] 045031-02-03 12:59:00 Test Item Value Reference Range Interpretation Comments PTT (test code = PTT) 32.2 s 22.9-35.8 [place] 045031-02-03 12:59:00 Test Item Value Reference Range Interpretation Comments WBC (test code = WBC) 7.8 3.7-10.4 [place] 045031-02-03 12:59:00 Test Item Value Reference Range Interpretation Comments RBC (test code = RBC) 3.89 4.70-6.10 [place] 045031-02-03 12:59:00 Test Item Value Reference Range Interpretation Comments Hgb (test code = Hgb) 11.5 14.0-18.[address] [facility] HospitalZlnjvlvJFDCMGWXSM0374-17-21 12:59:00 Test Item Value Reference Range Interpretation Comments Hct (test code = Hct) 35.9 42.0-54.[address] HospitalGeehputXEUCAWDIFK4785-93-58 12:59:00 Test Item Value Reference Range Interpretation Comments MCV (test code = MCV) 92.5 80.0-94.0 [place] 045031-02-03 12:59:00 Test Item Value Reference Range Interpretation Comments MCH (test code = MCH) 29.5 pg 27.0-31.[address] [facility] HospitalZwzmuqmISXEONXEBX9705-76-18 12:59:00 Test Item Value Reference Range Interpretation Comments MCHC (test code = MCHC) 31.9 32.0-36.0 [place] 045031-02-03 12:59:00 Test Item Value Reference Range Interpretation Comments RDW (test code = RDW) 15.3 11.5-14.5 [place] 045031-02-03 12:59:00 Test Item Value Reference Range Interpretation Comments Platelet (test code = Platelet) 196 133-[address] [facility] [facility] HospitalCvloybcDHVMYNRHXJ7893-98-41 12:59:00 Test Item Value Reference Range Interpretation Comments MPV (test code = MPV) 9.0 7.4-10.4 [place] 123881-02-03 12:59:00 Test Item Value Reference Range Interpretation Comments Cystatin C (test code = Cystatin C) 3.96 [place] 123881-02-03 12:59:00 Test Item Value Reference Range Interpretation Comments eGFR Cystatin-based (test code = eGFR 12 Cystatin-based) [place] 123881-02-03 12:59:00 Test Item Value Reference Range Interpretation Comments Albumin % (test code = Albumin %) 52.3 55.8-66.1 [place] 123881-02-03 12:59:00 Test Item Value Reference Range Interpretation Comments Alpha 1 % (test code = Alpha 1 %) 6.2 2.8-4.9 [place] 123881-02-03 12:59:00 Test Item Value Reference Range Interpretation Comments Alpha 2 % (test code = Alpha 2 %) 12.7 7.0-11.9 [place] 123881-02-03 12:59:00 Test Item Value Reference Range Interpretation Comments Beta % (test code = Beta %) 11.9 7.8-13.7 [facility] CenterVsreqsuEAEFVKNNPD0731-64-81 12:59:00 Test Item Value Reference Range Interpretation Comments Gamma % (test code = Gamma %) 16.9 11.1-18.7 [place] 123881-02-03 12:59:00 Test Item Value Reference Range Interpretation Comments Albumin (SPE) (test code = Albumin 3.87 3.57-5.55 (SPE)) [facility]jpbswfLVYALQAUZC4733-[facility]-48 12:59:00 Test Item Value Reference Range Interpretation Comments Alpha 1 Glob (test code = Alpha 1 Glob) 0.46 0.18-0.41 [facility] CenterTnwcunxPLLIVBQEKB0144-06-72 12:59:00 Test Item Value Reference Range Interpretation Comments Alpha 2 Glob (test code = Alpha 2 Glob) 0.94 0.45-1.00 [facility] TylerCtvjoweQRJXNDNMLW1479-72-18 12:59:00 Test Item Value Reference Range Interpretation Comments Beta Glob (test code = Beta Glob) 0.88 0.50-1.15 [facility] CenterYqloetwFBZCFFFLAC0519-78-31 12:59:00 Test Item Value Reference Range Interpretation Comments Gamma Glob (test code = Gamma Glob) 1.25 0.71-1.57 [facility] CenterRexbyccEVMZDHMFLU2960-23-84 12:59:00 Test Item Value Reference Range Interpretation Comments Tot Prot (SPE) (test code = Tot Prot 7.4 6.4-8.4 (SPE)) [facility] TylerGybtqhmBOXWDHGSND6294-38-78 12:59:00 Test Item Value Reference Range Interpretation [...] and concur with the resident's interpretation. CPT 87546-CB [facility] CenterIqdimuiMIWEMBWAXB7222-51-53 12:59:00 Test Item Value Reference Range Interpretation Comments Rennert Free Light Chains (test code = 119.9 Rennert Free Light Chains) [facility] TylerTvvpisiSLSPAJPHHJ7262-38-88 12:59:00 Test Item Value Reference Range Interpretation Comments Lambda Free Light Chains (test code = 69.6 Lambda Free Light Chains) [place] 123881-02-03 12:59:00 Test Item Value Reference Range Interpretation Comments Rennert/Lambda Free Light Chains Ratio 1.72 1 (test code = Rennert/Lambda Free Light Chains Ratio) [facility] TylerGjhxlelBQBBGXWRDR7849-93-35 12:59:00 Test Item Value Reference Range Interpretation Comments CMV IgG (test code = CMV IgG) no gt [place] 123881-02-03 12:59:00 Test Item Value Reference Range Interpretation Comments EBV VCA IgG (test code = EBV VCA IgG) 427.00 [place] 123881-02-03 12:59:00 Test Item Value Reference Range Interpretation Comments HIV Ag/Ab 4th Gen Negative *NA*(04/04/20 (test code = HIV 6:59 AM) Ag/[facility] 4th Gen) [facility]KMLSITXAWI2272[facility]58-85 12:59:00 Test Item Value Reference Range Interpretation Comments Hep A Tot (test code = Hep A Tot) [facility]LkremrfMXYYODZSQN9863-37-64 12:59:00 Test Item Value Reference Range Interpretation Comments Hep Bs Ab (test code = Hep Bs Ab) no gt [facility] TylerKauubpqMCIQVAPGUP5711-10-87 12:59:00 Test Item Value Reference Range Interpretation Comments Hep B Core Ab (test code = Hep B NON-REACTIVE Core Ab) [facility] TylerUdlujurMQEMZGRRTM4897-37-17 12:59:00 Test Item Value Reference Range Interpretation Comments Hep Bs Ag (test code = Hep Bs NON-REACTIVE Ag) [facility] TylerInfmqyvAUVBCMBLMX8242-49-07 12:59:00 Test Item Value Reference Range Interpretation Comments Hep C Ab (test code = Hep C Ab) NON-REACTIVE [place] 123881-02-03 12:59:00 Test Item Value Reference Range Interpretation Comments Hep Signal to Cut-Off (test code = Hep 0.02 1 Signal to Cut-Off) [place] 123881-02-03 12:59:00 Test Item Value Reference Range Interpretation Comments HSV 1 IgG (test code = HSV 1 IgG) 23.80 [place] 123881-02-03 12:59:00 Test Item Value Reference Range Interpretation Comments HSV 2 IgG (test code = HSV 2 IgG) [facility] gt [facility] TylerPaxxwlzOKPEXGEIKM8479-06-05 12:59:00 Test Item Value Reference Range Interpretation Comments T-Spot.TB (test code = T-Spot.TB) Negative [facility] TylerAhcfwicONQBBEZJQZ0241-21-71 12:59:00 Test Item Value Reference Range Interpretation Comments T-Spot Pnl A Neg Ctrl Corrected (test 0 1 code = T-Spot Pnl A Neg Ctrl Corrected) [place] 123881-02-03 12:59:00 Test Item Value Reference Range Interpretation Comments T-Spot Pnl B Neg Ctrl Corrected (test 0 1 code = T-Spot Pnl B Neg Ctrl Corrected) [facility] TylerZmkiniaGQWVVBBJSU3363-30-91 12:59:00 Test Item Value Reference Range Interpretation Comments T-Spot Neg Ctrl (test code = T-Spot Passed Neg Ctrl) [facility] TylerXfisghkMXIWNHXZNT0005-54-51 12:59:00 Test Item Value Reference Range Interpretation Comments T-Spot Pos Ctrl (test code = T-Spot Passed Pos Ctrl) [facility] TylerDgbqppfTRKWPTHBRM2406-87-66 12:59:00 Test Item Value Reference Range Interpretation Comments Treponemal Ab (test code Non-Reactive = Treponemal Ab) *NA*(04/04/20 6:59 AM) [place] 123881-02-03 12:59:00 Test Item Value Reference Range Interpretation Comments Varicella IgG (test code = Varicella 203.70 IgG) [facility] TylerNyffbhrJSENNQVGJO4668-93-90 12:59:00 Test Item Value Reference Range Interpretation Comments Mumps IgG (test code = Mumps IgG) no gt [place] 123881-02-03 12:59:00 Test Item Value Reference Range Interpretation Comments Rubella IgG (test code = Rubella IgG) no gt [facility] TylerMrlddllWFUFWINTOW8657-89-27 12:59:00 Test Item Value Reference Range Interpretation Comments Rubeola IgG (test code = Rubeola IgG) 192.00 [place] 123881-02-03 12:59:00 Test Item Value Reference Range Interpretation Comments KAREN Ser Pattern A distinct monoclonal (test code = KAREN Ser band is present in the Pattern) IgM izabella with a corresponding band in the kappa light chain izabella. The polyclonal gamma globulin background is preserved in all lanes. [facility]PbyfnjsERYUVWCTLD2793-02-43 12:59:00 Test Item Value Reference Range Interpretation [...] and concur with the resident's interpretation. CPT 79216-XX [facility] McallenQuwiwmsUWYGWW1928-77-01 12:59:00 Test Item Value Reference Range Interpretation Comments Trig (test code = Trig) 70 [facility] McallenKrlblvbXNBOQZ2248-69-91 12:59:00 Test Item Value Reference Range Interpretation Comments Chol (test code = Chol) 102 [facility]LajiphrJZLVJY4971-98-14 12:59:00 Test Item Value Reference Range Interpretation Comments HDL (test code = HDL) 33 [facility] McallenLiorqqtGFCGYG8561-35-71 12:59:00 Test Item Value Reference Range Interpretation Comments CHD Risk (test code = CHD Risk) 3.09 1 4.00-7.30 [facility] McallenImxmtatDEROOM3513-88-92 12:59:00 Test Item Value Reference Range Interpretation Comments LDL (Calculated) (test code = LDL 55 (Calculated)) [facility] CenterHuktylqKINTQL1630-08-29 12:59:00 Test Item Value Reference Range Interpretation Comments VLDL (test code = VLDL) 14 1 [facility]enannPARASITOLOGY - VDEEKMTV8020-74-03 12:59:00 Test Item Value Reference Range Interpretation Comments Strongyloides Antibodies (test code POSITIVE = Strongyloides Antibodies) [facility] CenterPARATHYROID OLLSVMJ7360-06-82 12:59:00 Test Item Value Reference Range Interpretation Comments PTH Intact (test code = PTH Intact) 635.6 18.4-80.1 [facility]enannREFERENCE LAB WKAWGFH3986-55-61 12:59:00 Test Item Value Reference Range Interpretation Comments Misc Quest (test code = Misc SEE COMMENT Quest) [facility] CenterSPECIAL TMECNSNBV5256-55-50 12:59:00 Test Item Value Reference Range Interpretation Comments Nicotine Lvl (test code = Nicotine Lvl) no gt [facility] YLLOFTBQZ4140-10-00 12:59:00 Test Item Value Reference Range Interpretation Comments Cotinine Lvl (test code = Cotinine Lvl) no gt [facility]2021-02-03 12:59:00 Test Item Value Reference Range Interpretation Comments Hgb A1C (test code = Hgb A1C) 6.0 [facility] KKTRLLDCB9843-38-01 12:59:00 Test Item Value Reference Range Interpretation Comments PSA (test code = PSA) 1.5 [facility] OIFDLAMA9178-74-75 12:59:00 Test Item Value Reference Range Interpretation Comments T cruzi (Chagas) Ab (test code = NONREACTIVE T cruzi (Chagas) Ab) [facility]2021-02-03 12:59:00 Test Item Value Reference Range Interpretation Comments W Nile Ab IgG (test code = W Nile Ab no gt IgG) [facility]2021-02-03 12:59:00 Test Item Value Reference Range Interpretation Comments W Nile Ab IgM (test code = W Nile Ab no gt IgM) [facility]2021-02-03 12:59:00 Test Item Value Reference Range Interpretation Comments Ferritin Lvl (test code = Ferritin Lvl) 228 22-275 [facility]2021-02-03 12:59:00 Test Item Value Reference Range Interpretation Comments Iron (test code = Iron) 33 [facility]2021-02-03 12:59:00 Test Item Value Reference Range Interpretation Comments TIBC (test code = TIBC) 262 [facility]2021-02-03 12:59:00 Test Item Value Reference Range Interpretation Comments % Satur Fe (test code = % Satur Fe) 13 [facility]2021-02-03 12:59:00 Test Item Value Reference Range Interpretation Comments Creatinine Lvl (test code = Creatinine 5.71 0.50-1.40 Lvl) [facility]2021-02-03 12:59:00 Test Item Value Reference Range Interpretation Comments eGFR (test code = eGFR) 10 [facility]2021-02-03 12:59:00 Test Item Value Reference Range Interpretation Comments Glucose Lvl (test code = Glucose Lvl) 72 70-99 [facility]2021-02-03 12:59:00 Test Item Value Reference Range Interpretation Comments BUN (test code = BUN) 47 7-22 [place] 435751-02-03 12:59:00 Test Item Value Reference Range Interpretation Comments Creatinine Lvl (test code = Creatinine 5.59 0.50-1.40 Lvl) [place] 435751-02-03 12:59:00 Test Item Value Reference Range Interpretation Comments Sodium Lvl (test code = Sodium Lvl) 143 135-145 [place] 435751-02-03 12:59:00 Test Item Value Reference Range Interpretation Comments Potassium Lvl (test code = Potassium 4.0 3.5-5.1 Lvl) [place] 435751-02-03 12:59:00 Test Item Value Reference Range Interpretation Comments Chloride Lvl (test code = Chloride Lvl) 110 95-109 [place] 435751-02-03 12:59:00 Test Item Value Reference Range Interpretation Comments CO2 (test code = CO2) 24 24-32 [place] 435751-02-03 12:59:00 Test Item Value Reference Range Interpretation Comments Calcium Lvl (test code = Calcium Lvl) 8.7 8.5-10.5 [place] 435751-02-03 12:59:00 Test Item Value Reference Range Interpretation Comments Total Protein (test code = Total 7.4 6.4-8.4 Protein) [place] 435751-02-03 12:59:00 Test Item Value Reference Range Interpretation Comments Albumin Lvl (test code = Albumin Lvl) 3.5 3.5-5.0 [place] 435751-02-03 12:59:00 Test Item Value Reference Range Interpretation Comments ALT (test code = ALT) 12 See_Comment [Auto mated message] The system which ge nerated this result transmit nicko reference range : <=65. The reference range was not used to interpr et this result as adebayo l/abnormal. [facility] CenterAvaSure Holdings [id number] 12:59:00 Test Item Value Reference Range Interpretation Comments AST (test code = AST) 14 See_Comment [Auto mated message] The system which ge nerated this result transmit nicko reference range : <=37. The reference range was not used to interpr et this result as adebayo l/abnormal. [facility] JHTRQ5411-30-14 12:59:00 Test Item Value Reference Range Interpretation Comments Alk Phos (test code = Alk Phos) 58 39-136 [facility] [id number] 12:59:00 Test Item Value Reference Range Interpretation Comments Bili Total (test code = Bili Total) 0.3 0.2-1.3 [facility] [id number] 12:59:00 Test Item Value Reference Range Interpretation Comments AGAP (test code = AGAP) 13.0 10.0-20.0 [facility] [id number] 12:59:00 Test Item Value Reference Range Interpretation Comments B/C Ratio (test code = B/C Ratio) 8 1 6-25 [facility] [id number] 12:59:00 Test Item Value Reference Range Interpretation Comments Globulin (test code = Globulin) 3.9 2.7-4.2 [facility] [id number] 12:59:00 Test Item Value Reference Range Interpretation Comments A/G Ratio (test code = A/G Ratio) 0.9 1 0.7-1.6 [facility] [id number] 12:59:00 Test Item Value Reference Range Interpretation Comments eGFR (test code = eGFR) 10 [facility] [id number] 12:59:00 Test Item Value Reference Range Interpretation Comments Magnesium Lvl (test code = Magnesium 1.5 1.8-2.4 Lvl) [facility] [id number] 12:59:00 Test Item Value Reference Range Interpretation Comments Phosphorus (test code = Phosphorus) 5.0 2.5-4.5 [facility] [id number] 12:59:00 Test Item Value Reference Range Interpretation Comments Uric Acid (test code = Uric Acid) 5.8 3.8-8.0 [facility] [id number] 12:59:00 Test Item Value Reference Range Interpretation Comments Vitamin D, 25-OH, Total (test code = 33 Vitamin D, 25-OH, Total) [facility] [id number] 12:59:00 Test Item Value Reference Range Interpretation Comments Phencyclidine Scr (test code = Negative Phencyclidine Scr) [facility] [id number] 12:59:00 Test Item Value Reference Range Interpretation Comments Kaitlin Scr (test code = Kaitlin Scr) Negative [facility] [id number] 12:59:00 Test Item Value Reference Range Interpretation Comments Cannab Scr (test code = Cannab Scr) Negative [facility] [id number] 12:59:00 Test Item Value Reference Range Interpretation Comments Methadone Scr (test code = Methadone Negative Scr) [facility]2021-02-03 12:59:00 Test Item Value Reference Range Interpretation Comments Cocaine Scr (test code = Cocaine Negative Scr) [facility]2021-02-03 12:59:00 Test Item Value Reference Range Interpretation Comments Benzodiaz Scr (test code = Benzodiaz Negative Scr) [facility]2021-02-03 12:59:00 Test Item Value Reference Range Interpretation Comments Amph Scr (test code = Amph Scr) Negative [facility]2021-02-03 12:59:00 Test Item Value Reference Range Interpretation Comments Opiate Scr (test code = Opiate Scr) Negative [facility]2021-02-03 12:59:00 Test Item Value Reference Range Interpretation Comments 6-Acetylmor Scr (test code = Negative 6-Acetylmor Scr) [facility] [id number] 12:59:00 Test Item Value Reference Range Interpretation Comments Cryptococcal Ag (test Negative (04/04/20 code = Cryptococcal Ag) 6:59 AM) [facility]2021-02-03 12:59:00 Test Item Value Reference Range Interpretation Comments Histo Yeast Ab (test code = Histo Yeast <1:8 Ab) [facility] [id number] 12:59:00 Test Item Value Reference Range Interpretation Comments Histo mycel Ab (test code = Histo mycel <1:8 Ab) [facility] [id number] 12:59:00 Test Item Value Reference Range Interpretation Comments Blastomyces Ab (test code = Negative Blastomyces Ab) [facility]2021-02-03 12:59:00 Test Item Value Reference Range Interpretation Comments Coccid Ab IgM (test code = Coccid Ab NEGATIVE IgM) [facility] [id number] 12:59:00 Test Item Value Reference Range Interpretation Comments Coccid Ab IgG (test code = Coccid Ab NEGATIVE IgG) [place] 045031-02-03 12:59:00 Test Item Value Reference Range Interpretation Comments Segs (test code = Segs) 65.6 45.0-75.0 [place] 045031-02-03 12:59:00 Test Item Value Reference Range Interpretation Comments Lymphocytes (test code = Lymphocytes) 21.6 20.0-40.0 [place] 045031-02-03 12:59:00 Test Item Value Reference Range Interpretation Comments Monocytes (test code = Monocytes) 8.5 2.0-12.0 [place] 045031-02-03 12:59:00 Test Item Value Reference Range Interpretation Comments Eosinophils (test code = 3.5 See_Comment [A utomated message] The Eosinophils) system which ge nerated this result tra nsmitted reference range : <=4.0. The reference r carlos was not used to int erpret this result as normal/abnormal . [place] 045031-02-03 12:59:00 Test Item Value Reference Range Interpretation Comments Basophils (test code = 0.8 See_Comment [Aut omated message] The Basophils) system which ge nerated this result tra nsmitted reference range : <=1.0. The reference r carlos was not used to int erpret this result as normal/abnormal . [place] 045031-02-03 12:59:00 Test Item Value Reference Range Interpretation Comments Neutrophils # (test code = Neutrophils 5.1 1.5-8.1 #) [place] 045031-02-03 12:59:00 Test Item Value Reference Range Interpretation Comments Lymphocytes # (test code = Lymphocytes 1.7 1.0-5.5 #) [place] 045031-02-03 12:59:00 Test Item Value Reference Range Interpretation Comments Monocytes # (test code 0.7 See_Comment [Aut omated message] The = Monocytes #) system which generated this result tra nsmitted reference range : <=0.8. The reference r carlos was not used to int erpret this result as normal/abnormal . [place] 045031-02-03 12:59:00 Test Item Value Reference Range Interpretation Comments Eosinophils # (test code 0.3 See_Comment [A utomated message] The = Eosinophils #) system whic h generated this result tra nsmitted reference range : <=0.5. The reference r carlos was not used to int erpret this result as normal/abnormal . [facility]EhtgvmhVPPADNVXEW0029-02-56 12:59:00 Test Item Value Reference Range Interpretation Comments Basophils # (test code 0.1 See_Comment [Aut omated message] The = Basophils #) system which generated this result tra nsmitted reference range : <=0.2. The reference r carlos was not used to int erpret this result as normal/abnormal . [facility] HospitalYlgeopmLPADCQKPEY4197-67-43 12:59:00 Test Item Value Reference Range Interpretation Comments PT (test code = PT) 12.8 s 12.0-14.7 [place] 045031-02-03 12:59:00 Test Item Value Reference Range Interpretation Comments INR (test code = INR) 0.97 1 0.85-1.17 [place] 045031-02-03 12:59:00 Test Item Value Reference Range Interpretation Comments PTT (test code = PTT) 32.2 s 22.9-35.8 [place] 045031-02-03 12:59:00 Test Item Value Reference Range Interpretation Comments WBC (test code = WBC) 7.8 3.7-10.4 [place] 045031-02-03 12:59:00 Test Item Value Reference Range Interpretation Comments RBC (test code = RBC) 3.89 4.70-6.10 [place] 045031-02-03 12:59:00 Test Item Value Reference Range Interpretation Comments Hgb (test code = Hgb) 11.5 14.0-18.0 [place] 045031-02-03 12:59:00 Test Item Value Reference Range Interpretation Comments Hct (test code = Hct) 35.9 42.0-54.0 [place] 045031-02-03 12:59:00 Test Item Value Reference Range Interpretation Comments MCV (test code = MCV) 92.5 80.0-94.0 [place] 045031-02-03 12:59:00 Test Item Value Reference Range Interpretation Comments MCH (test code = MCH) 29.5 pg 27.0-31.0 [place] 045031-02-03 12:59:00 Test Item Value Reference Range Interpretation Comments MCHC (test code = MCHC) 31.9 32.0-36.[address] [facility] [facility] HospitalNjpdrsuLQDVHUWRNZ3212-13-31 12:59:00 Test Item Value Reference Range Interpretation Comments RDW (test code = RDW) 15.3 11.5-14.5 [place] 045031-02-03 12:59:00 Test Item Value Reference Range Interpretation Comments Platelet (test code = Platelet) 196 133-[address] [facility] HospitalVrccezgQIYOEFAUKJ2226-43-09 12:59:00 Test Item Value Reference Range Interpretation Comments MPV (test code = MPV) 9.0 7.4-10.4 [place] 123881-02-03 12:59:00 Test Item Value Reference Range Interpretation Comments Cystatin C (test code = Cystatin C) 3.96 [place] 123881-02-03 12:59:00 Test Item Value Reference Range Interpretation Comments eGFR Cystatin-based (test code = eGFR 12 Cystatin-based) [facility]dpgeubZVVJOARSDJ3752-[facility] 12:59:00 Test Item Value Reference Range Interpretation Comments Albumin % (test code = Albumin %) 52.3 55.8-66.1 [place] 123881-02-03 12:59:00 Test Item Value Reference Range Interpretation Comments Alpha 1 % (test code = Alpha 1 %) 6.2 2.8-4.9 [place] 123881-02-03 12:59:00 Test Item Value Reference Range Interpretation Comments Alpha 2 % (test code = Alpha 2 %) 12.7 7.0-11.9 [place] 123881-02-03 12:59:00 Test Item Value Reference Range Interpretation Comments Beta % (test code = Beta %) 11.9 7.8-13.7 [place] 123881-02-03 12:59:00 Test Item Value Reference Range Interpretation Comments Gamma % (test code = Gamma %) 16.9 11.1-18.7 [place] 123881-02-03 12:59:00 Test Item Value Reference Range Interpretation Comments Albumin (SPE) (test code = Albumin 3.87 3.57-5.55 (SPE)) [place] [address]-02-03 12:59:00 Test Item Value Reference Range Interpretation Comments Alpha 1 Glob (test code = Alpha 1 Glob) 0.46 0.18-0.41 [facility] CenterElqfkcuQKPAOHVEID2261-03-79 12:59:00 Test Item Value Reference Range Interpretation Comments Alpha 2 Glob (test code = Alpha 2 Glob) 0.94 0.45-1.00 [facility] CenterAxwidgxRQSZORZBQC4845-54-74 12:59:00 Test Item Value Reference Range Interpretation Comments Beta Glob (test code = Beta Glob) 0.88 0.50-1.15 [facility] CenterAkteccqENNASSIWSK3471-02-59 12:59:00 Test Item Value Reference Range Interpretation Comments Gamma Glob (test code = Gamma Glob) 1.25 0.71-1.57 [facility] CenterClntsovRODOACMVAG2096-14-19 12:59:00 Test Item Value Reference Range Interpretation Comments Tot Prot (SPE) (test code = Tot Prot 7.4 6.4-8.4 (SPE)) [facility]AznwidfUVAFIMINOM0451-80-74 12:59:00 Test Item Value Reference Range Interpretation [...] and concur with the resident's interpretation. CPT 10428-JS [facility] CenterZkwxvaqQTWTSISXDF4255-78-39 12:59:00 Test Item Value Reference Range Interpretation Comments Rennert Free Light Chains (test code = 119.9 Rennert Free Light Chains) [facility] CenterCuxcjypBGJLJSVDNB0844-12-26 12:59:00 Test Item Value Reference Range Interpretation Comments Lambda Free Light Chains (test code = 69.6 Lambda Free Light Chains) [facility] CenterBeovmirUKSIWLVOHH4192-15-05 12:59:00 Test Item Value Reference Range Interpretation Comments Rennert/Lambda Free Light Chains Ratio 1.72 1 (test code = Rennert/Lambda Free Light Chains Ratio) [facility] CenterWehkhstCTUYZTPBTQ2752-30-42 12:59:00 Test Item Value Reference Range Interpretation Comments CMV IgG (test code = CMV IgG) no gt [facility] TylerPyhhmvnWAGADSCRYQ0186-35-71 12:59:00 Test Item Value Reference Range Interpretation Comments EBV VCA IgG (test code = EBV VCA IgG) 427.00 [facility] TylerRxcylzjHSKQXUMLZC1898-73-63 12:59:00 Test Item Value Reference Range Interpretation Comments HIV Ag/Ab 4th Gen Negative *NA*(04/04/20 (test code = HIV 6:59 AM) Ag/Ab 4th Gen) [facility] TylerQtbdwluRCBMTAAMVL4671-39-91 12:59:00 Test Item Value Reference Range Interpretation Comments Hep A Tot (test code = Hep A Tot) REACTIVE [place] 123881-02-03 12:59:00 Test Item Value Reference Range Interpretation Comments Hep Bs Ab (test code = Hep Bs Ab) no gt [facility] TylerDuivshwXDVCHKZRMT5319-38-67 12:59:00 Test Item Value Reference Range Interpretation Comments Hep B Core Ab (test code = Hep B NON-REACTIVE Core Ab) [facility] TylerHosqgxeRRGOWEFGXS7920-99-43 12:59:00 Test Item Value Reference Range Interpretation Comments Hep Bs Ag (test code = Hep Bs NON-REACTIVE Ag) [facility] TylerXlizhxfCDZKBZDHEJ6804-64-33 12:59:00 Test Item Value Reference Range Interpretation Comments Hep C Ab (test code = Hep C Ab) NON-REACTIVE [facility] TylerXddbpcuSVDCRRQOFE8627-63-36 12:59:00 Test Item Value Reference Range Interpretation Comments Hep Signal to Cut-Off (test code = Hep 0.02 1 Signal to Cut-Off) [place] 123881-02-03 12:59:00 Test Item Value Reference Range Interpretation Comments HSV 1 IgG (test code = HSV 1 IgG) 23.80 [place] 123881-02-03 12:59:00 Test Item Value Reference Range Interpretation Comments HSV 2 IgG (test code = HSV 2 IgG) [facility] gt [facility] TylerWzvnsirKLUXYHVDOW4692-40-23 12:59:00 Test Item Value Reference Range Interpretation Comments T-Spot.TB (test code = T-Spot.TB) Negative [place] 123881-02-03 12:59:00 Test Item Value Reference Range Interpretation Comments T-Spot Pnl A Neg Ctrl Corrected (test 0 1 code = T-Spot Pnl A Neg Ctrl Corrected) [place] 123881-02-03 12:59:00 Test Item Value Reference Range Interpretation Comments T-Spot Pnl B Neg Ctrl Corrected (test 0 1 code = T-Spot Pnl B Neg Ctrl Corrected) [place] 123881-02-03 12:59:00 Test Item Value Reference Range Interpretation Comments T-Spot Neg Ctrl (test code = T-Spot Passed Neg Ctrl) [place] 123881-02-03 12:59:00 Test Item Value Reference Range Interpretation Comments T-Spot Pos Ctrl (test code = T-Spot Passed Pos Ctrl) [place] 123881-02-03 12:59:00 Test Item Value Reference Range Interpretation Comments Treponemal Ab (test code Non-Reactive = Treponemal Ab) *NA*(04/04/20 6:59 AM) [place] 123881-02-03 12:59:00 Test Item Value Reference Range Interpretation Comments Varicella IgG (test code = Varicella 203.70 IgG) [place] 123881-02-03 12:59:00 Test Item Value Reference Range Interpretation Comments Mumps IgG (test code = Mumps IgG) no gt [place] 123881-02-03 12:59:00 Test Item Value Reference Range Interpretation Comments Rubella IgG (test code = Rubella IgG) [facility] gt [facility] TylerZdrnhrrDPJHDZYVIT5509-98-76 12:59:00 Test Item Value Reference Range Interpretation Comments Rubeola IgG (test code = Rubeola IgG) 192.00 [place] 123881-02-03 12:59:00 Test Item Value Reference Range Interpretation Comments KAREN Ser Pattern A distinct monoclonal (test code = KAREN Ser band is present in the Pattern) IgM izabella with a corresponding band in the kappa light chain izabella. The polyclonal gamma globulin background is preserved in all lanes. [place] 123881-02-03 12:59:00 Test Item Value Reference Range Interpretation [...] and concur with the resident's interpretation. CPT [id number] [facility] [id number] 12:59:00 Test Item Value Reference Range Interpretation Comments Trig (test code = Trig) 70 [facility] [id number] 12:59:00 Test Item Value Reference Range Interpretation Comments Chol (test code = Chol) 102 [facility] [id number] 12:59:00 Test Item Value Reference Range Interpretation Comments HDL (test code = HDL) 33 [facility] McallenFjcsrrfXVBQHZ1164-54-68 12:59:00 Test Item Value Reference Range Interpretation Comments CHD Risk (test code = CHD Risk) 3.09 1 4.00-7.30 [facility] McallenHfnsotoCYFKQS8061-09-79 12:59:00 Test Item Value Reference Range Interpretation Comments LDL (Calculated) (test code = LDL 55 (Calculated)) [facility] McallenWxbpcrtNXKNHP6853-43-59 12:59:00 Test Item Value Reference Range Interpretation Comments VLDL (test code = VLDL) 14 1 [facility] McallenannPARASITOLOGY - [id number] 12:59:00 Test Item Value Reference Range Interpretation Comments Strongyloides Antibodies (test code POSITIVE = Strongyloides Antibodies) [facility] [id number] 12:59:00 Test Item Value Reference Range Interpretation Comments PTH Intact (test code = PTH Intact) 635.6 18.4-80.1 [facility] [id number] 12:59:00 Test Item Value Reference Range Interpretation Comments Misc Quest (test code = Misc SEE COMMENT Quest) [facility] McallenannSPECIAL [id number] 12:59:00 Test Item Value Reference Range Interpretation Comments Nicotine Lvl (test code = Nicotine Lvl) no gt [facility] McallenannSPECIAL [id number] 12:59:00 Test Item Value Reference Range Interpretation Comments Cotinine Lvl (test code = Cotinine Lvl) no gt [facility] McallenannSPECIAL [id number] 12:59:00 Test Item Value Reference Range Interpretation Comments Hgb A1C (test code = Hgb A1C) 6.0 [facility] McallenannSPECIAL [id number] 12:59:00 Test Item Value Reference Range Interpretation Comments PSA (test code = PSA) 1.5 [facility] McallenannVIRAL - [id number] 12:59:00 Test Item Value Reference Range Interpretation Comments T cruzi (Chagas) Ab (test code = NONREACTIVE T cruzi (Chagas) Ab) [facility] [id number] 12:59:00 Test Item Value Reference Range Interpretation Comments W Nile Ab IgG (test code = W Nile Ab no gt IgG) [facility] [id number] 12:59:00 Test Item Value Reference Range Interpretation Comments W Nile Ab IgM (test code = W Nile Ab no gt IgM) [facility] [id number] 14:05:00 Test Item Value Reference Range Interpretation Comments POC UA Color (test Yellow *NA*(04/27/19 code = POC UA Color) 8:05 AM) [facility] [id number] 14:05:00 Test Item Value Reference Range Interpretation Comments POC UA Turbidity (test Clear *NA*(04/27/19 code = POC UA Turbidity) 8:05 AM) [facility] [id number] 14:05:00 Test Item Value Reference Range Interpretation Comments POC UA SG (test code = POC UA SG) 1.015 1 [facility] [id number] 14:05:00 Test Item Value Reference Range Interpretation Comments POC UA pH (test code = POC UA pH) 6.0 1 5.0-8.0 [facility] [id number] 14:05:00 Test Item Value Reference Range Interpretation Comments POC UA Prot (test code = POC UA >=300 mg/dL Prot) [facility] [id number] 14:05:00 Test Item Value Reference Range Interpretation Comments POC UA Glu (test code = POC UA Negative mg/dL Glu) [facility] [id number] 14:05:00 Test Item Value Reference Range Interpretation Comments POC UA Ket (test code = POC UA Negative mg/dL Ket) [facility] [id number] 14:05:00 Test Item Value Reference Range Interpretation Comments POC UA Bili (test Negative *NA*(04/27/19 code = POC UA Bili) 8:05 AM) [facility] [id number] 14:05:00 Test Item Value Reference Range Interpretation Comments POC UA Bld (test code Trace *ABN*(04/27/19 = POC UA Bld) 8:05 AM) [facility] [id number] 14:05:00 Test Item Value Reference Range Interpretation Comments POC UA Uro (test code = POC UA Uro) 0.2 0.1-1.0 [facility] [id number] 14:05:00 Test Item Value Reference Range Interpretation Comments POC UA Nit (test code Negative *NA*(04/27/19 = POC UA Nit) 8:05 AM) [facility] [id number] 14:05:00 Test Item Value Reference Range Interpretation Comments POC UA LeukEst (test Negative *NA*(04/27/19 code = POC UA LeukEst) 8:05 AM) [facility] [id number] 14:05:00 Test Item Value Reference Range Interpretation Comments POC UA Color (test Yellow *NA*(04/27/19 code = POC UA Color) 8:05 AM) [facility] [id number] 14:05:00 Test Item Value Reference Range Interpretation Comments POC UA Turbidity (test Clear *NA*(04/27/19 code = POC UA Turbidity) 8:05 AM) [facility] [id number] 14:05:00 Test Item Value Reference Range Interpretation Comments POC UA SG (test code = POC UA SG) 1.015 1 [facility] [id number] 14:05:00 Test Item Value Reference Range Interpretation Comments POC UA pH (test code = POC UA pH) 6.0 1 5.0-8.0 [facility] [id number] 14:05:00 Test Item Value Reference Range Interpretation Comments POC UA Prot (test code = POC UA >=300 mg/dL Prot) [facility] [id number] 14:05:00 Test Item Value Reference Range Interpretation Comments POC UA Glu (test code = POC UA Negative mg/dL Glu) [facility] [id number] 14:05:00 Test Item Value Reference Range Interpretation Comments POC UA Ket (test code = POC UA Negative mg/dL Ket) [facility] [id number] 14:05:00 Test Item Value Reference Range Interpretation Comments POC UA Bili (test Negative *NA*(04/27/19 code = POC UA Bili) 8:05 AM) [facility] [id number] 14:05:00 Test Item Value Reference Range Interpretation Comments POC UA Bld (test code Trace *ABN*(04/27/19 = POC UA Bld) 8:05 AM) [facility] [id number] 14:05:00 Test Item Value Reference Range Interpretation Comments POC UA Uro (test code = POC UA Uro) 0.2 0.1-1.0 [facility] [id number] 14:05:00 Test Item Value Reference Range Interpretation Comments POC UA Nit (test code Negative *NA*(04/27/19 = POC UA Nit) 8:05 AM) [facility] [id number] 14:05:00 Test Item Value Reference Range Interpretation Comments POC UA LeukEst (test Negative *NA*(04/27/19 code = POC UA LeukEst) 8:05 AM) [facility] [id number] 14:05:00 Test Item Value Reference Range Interpretation Comments POC UA Color (test Yellow *NA*(04/27/19 code = POC UA Color) 8:05 AM) [facility] [id number] 14:05:00 Test Item Value Reference Range Interpretation Comments POC UA Turbidity (test Clear *NA*(04/27/19 code = POC UA Turbidity) 8:05 AM) [facility] [id number] 14:05:00 Test Item Value Reference Range Interpretation Comments POC UA SG (test code = POC UA SG) 1.015 1 [facility] [id number] 14:05:00 Test Item Value Reference Range Interpretation Comments POC UA pH (test code = POC UA pH) 6.0 1 5.0-8.0 [facility] [id number] 14:05:00 Test Item Value Reference Range Interpretation Comments POC UA Prot (test code = POC UA >=300 mg/dL Prot) [facility] [id number] 14:05:00 Test Item Value Reference Range Interpretation Comments POC UA Glu (test code = POC UA Negative mg/dL Glu) [facility] [id number] 14:05:00 Test Item Value Reference Range Interpretation Comments POC UA Ket (test code = POC UA Negative mg/dL Ket) [facility] [id number] 14:05:00 Test Item Value Reference Range Interpretation Comments POC UA Bili (test Negative *NA*(04/27/19 code = POC UA Bili) 8:05 AM) [facility] [id number] 14:05:00 Test Item Value Reference Range Interpretation Comments POC UA Bld (test code Trace *ABN*(04/27/19 = POC UA Bld) 8:05 AM) [facility] [id number] 14:05:00 Test Item Value Reference Range Interpretation Comments POC UA Uro (test code = POC UA Uro) 0.2 0.1-1.0 [facility] [id number] 14:05:00 Test Item Value Reference Range Interpretation Comments POC UA Nit (test code Negative *NA*(04/27/19 = POC UA Nit) 8:05 AM) [facility] [id number] 14:05:00 Test Item Value Reference Range Interpretation Comments POC UA LeukEst (test Negative *NA*(04/27/19 code = POC UA LeukEst) 8:05 AM) [facility] [id number] 14:05:00 Test Item Value Reference Range Interpretation Comments POC UA Color (test Yellow *NA*(04/27/19 code = POC UA Color) 8:05 AM) [facility] [id number] 14:05:00 Test Item Value Reference Range Interpretation Comments POC UA Turbidity (test Clear *NA*(04/27/19 code = POC UA Turbidity) 8:05 AM) [facility] [id number] 14:05:00 Test Item Value Reference Range Interpretation Comments POC UA SG (test code = POC UA SG) 1.015 1 [facility] [id number] 14:05:00 Test Item Value Reference Range Interpretation Comments POC UA pH (test code = POC UA pH) 6.0 1 5.0-8.0 [facility] [id number] 14:05:00 Test Item Value Reference Range Interpretation Comments POC UA Prot (test code = POC UA >=300 mg/dL Prot) [facility] [id number] 14:05:00 Test Item Value Reference Range Interpretation Comments POC UA Glu (test code = POC UA Negative mg/dL Glu) [facility] AND [id number] 14:05:00 Test Item Value Reference Range Interpretation Comments POC UA Ket (test code = POC UA Negative mg/dL Ket) [facility] AND [id number] 14:05:00 Test Item Value Reference Range Interpretation Comments POC UA Bili (test Negative *NA*(04/27/19 code = POC UA Bili) 8:05 AM) [facility] AND [id number] 14:05:00 Test Item Value Reference Range Interpretation Comments POC UA Bld (test code Trace *ABN*(04/27/19 = POC UA Bld) 8:05 AM) [facility] AND [id number] 14:05:00 Test Item Value Reference Range Interpretation Comments POC UA Uro (test code = POC UA Uro) 0.2 0.1-1.0 [facility] AND [id number] 14:05:00 Test Item Value Reference Range Interpretation Comments POC UA Nit (test code Negative *NA*(04/27/19 = POC UA Nit) 8:05 AM) [facility] AND [id number] 14:05:00 Test Item Value Reference Range Interpretation Comments POC UA LeukEst (test Negative *NA*(04/27/19 code = POC UA LeukEst) 8:05 AM) [facility] [id number] 13:10:00 Test Item Value Reference Range Interpretation Comments Ferritin Lvl (test code = Ferritin Lvl) 237 22-275 [facility]2020-01-15 13:10:00 Test Item Value Reference Range Interpretation Comments Iron (test code = Iron) 46 45-160 [facility] [id number] 13:10:00 Test Item Value Reference Range Interpretation Comments TIBC (test code = TIBC) 300 228-428 [facility] [id number] 13:10:00 Test Item Value Reference Range Interpretation Comments UIBC (test code = UIBC) 254 110-370 [facility]2020-01-15 13:10:00 Test Item Value Reference Range Interpretation Comments % Satur Fe (test code = % Satur Fe) 15 12-57 [facility]2020-01-15 13:10:00 Test Item Value Reference Range Interpretation Comments Glucose Lvl (test code = Glucose Lvl) 74 70-99 [facility]2020-01-15 13:10:00 Test Item Value Reference Range Interpretation Comments BUN (test code = BUN) 43 7-22 [facility]2020-01-15 13:10:00 Test Item Value Reference Range Interpretation Comments Creatinine Lvl (test code = Creatinine 4.40 0.50-1.40 Lvl) [facility]2020-01-15 13:10:00 Test Item Value Reference Range Interpretation Comments Sodium Lvl (test code = Sodium Lvl) 143 135-145 [facility]2020-01-15 13:10:00 Test Item Value Reference Range Interpretation Comments Potassium Lvl (test code = Potassium 3.9 3.5-5.1 Lvl) [facility]2020-01-15 13:10:00 Test Item Value Reference Range Interpretation Comments Chloride Lvl (test code = Chloride Lvl) 109 95-109 [place] [id number] 13:10:00 Test Item Value Reference Range Interpretation Comments CO2 (test code = CO2) 26 24-32 [facility]2020-01-15 13:10:00 Test Item Value Reference Range Interpretation Comments Calcium Lvl (test code = Calcium Lvl) 8.5 8.5-10.5 [facility]2020-01-15 13:10:00 Test Item Value Reference Range Interpretation Comments Total Protein (test code = Total 7.5 6.4-8.4 Protein) [facility]2020-01-15 13:10:00 Test Item Value Reference Range Interpretation Comments Albumin Lvl (test code = Albumin Lvl) 3.4 3.5-5.0 [facility]2020-01-15 13:10:00 Test Item Value Reference Range Interpretation Comments ALT (test code = ALT) 16 See_Comment [Auto mated message] The system which ge nerated this result transmit nicko reference range : <=65. The reference range was not used to interpr et this result as adebayo l/abnormal. [facility]2020-01-15 13:10:00 Test Item Value Reference Range Interpretation Comments AST (test code = AST) 11 See_Comment [Auto mated message] The system which ge nerated this result transmit nicko reference range : <=37. The reference range was not used to interpr et this result as adebayo l/abnormal. [facility] [place] [id number] 13:10:00 Test Item Value Reference Range Interpretation Comments Alk Phos (test code = Alk Phos) 68 39-136 [facility] [place] [id number] 13:10:00 Test Item Value Reference Range Interpretation Comments Bili Total (test code = Bili Total) 0.3 0.2-1.3 [facility] [place] [id number] 13:10:00 Test Item Value Reference Range Interpretation Comments AGAP (test code = AGAP) 11.9 10.0-20.0 [facility] [place] [id number] 13:10:00 Test Item Value Reference Range Interpretation Comments B/C Ratio (test code = B/C Ratio) 10 1 6-25 [facility] [id number] 13:10:00 Test Item Value Reference Range Interpretation Comments Globulin (test code = Globulin) 4.1 2.7-4.2 [facility] [place] [id number] 13:10:00 Test Item Value Reference Range Interpretation Comments A/G Ratio (test code = A/G Ratio) 0.8 1 0.7-1.6 [facility]2020-01-15 13:10:00 Test Item Value Reference Range Interpretation Comments eGFR (test code = eGFR) 13 [facility] [id number] 13:10:00 Test Item Value Reference Range Interpretation Comments Magnesium Lvl (test code = Magnesium 1.2 1.8-2.4 Lvl) [facility] [place] [id number] 13:10:00 Test Item Value Reference Range Interpretation Comments Phosphorus (test code = Phosphorus) 3.9 2.5-4.5 [facility] [id number] 13:10:00 Test Item Value Reference Range Interpretation Comments Uric Acid (test code = Uric Acid) 7.1 3.8-8.0 [facility] [place] [id number] 13:10:00 Test Item Value Reference Range Interpretation Comments Vitamin D, 25-OH, Total (test code = 42.0 30.0-100.0 Vitamin D, 25-OH, Total) [facility] [place] [id number] 13:10:00 Test Item Value Reference Range Interpretation Comments LDH (test code = LDH) 164 98-192 [facility] McallenannCHEM [id number] 13:10:00 Test Item Value Reference Range Interpretation Comments Creatinine Lvl (test code = Creatinine 4.39 0.50-1.40 Lvl) [facility]enannCHEM [id number] 13:10:00 Test Item Value Reference Range Interpretation Comments eGFR (test code = eGFR) 13 [facility] McallenGrayBugDRUG [id number] 13:10:00 Test Item Value Reference Range Interpretation Comments Phencyclidine Scr (test code = Negative Phencyclidine Scr) [facility]enannDR[facility] [id number] 13:10:00 Test Item Value Reference Range Interpretation Comments Kaitlin Scr (test code = Kaitlin Scr) Negative [facility]enannDR[facility] [id number] 13:10:00 Test Item Value Reference Range Interpretation Comments Cannab Scr (test code = Cannab Scr) Negative [facility]enannDR[facility] [id number] 13:10:00 Test Item Value Reference Range Interpretation Comments Methadone Scr (test code = Methadone Negative Scr) [facility] McallenGrayBugDRUG [id number] 13:10:00 Test Item Value Reference Range Interpretation Comments Cocaine Scr (test code = Cocaine Negative Scr) [facility] [id number] 13:10:00 Test Item Value Reference Range Interpretation Comments Benzodiaz Scr (test code = Benzodiaz Negative Scr) [facility]enannDR[facility] [id number] 13:10:00 Test Item Value Reference Range Interpretation Comments Amph Scr (test code = Amph Scr) Negative [facility]enannDRUG [id number] 13:10:00 Test Item Value Reference Range Interpretation Comments Opiate Scr (test code = Opiate Scr) Positive [facility]enannDR[facility] [id number] 13:10:00 Test Item Value Reference Range Interpretation Comments 6-Acetylmor Scr (test code = Negative 6-Acetylmor Scr) [facility]annDR[facility] [id number] 13:10:00 Test Item Value Reference Range Interpretation Comments Opiate Qnt (test code = Opiate Qnt) Positive [facility] Mc[id number] 13:10:00 Test Item Value Reference Range Interpretation Comments PT (test code = PT) 12.8 s 12.0-14.[address] [facility] H[id number] 13:10:00 Test Item Value Reference Range Interpretation Comments INR (test code = INR) 0.96 1 0.85-1.[address] [facility] HospitalGxxhvfoINOYPSWCUX1199-75-19 13:10:00 Test Item Value Reference Range Interpretation Comments PTT (test code = PTT) 33.5 s 22.9-35.[address] [facility] [facility] HospitalAzcajxcSXQUYVEWQH9543-64-83 13:10:00 Test Item Value Reference Range Interpretation Comments WBC (test code = WBC) 8.5 3.7-10.[address] HospitalStigjvfBKVVHGPZDQ0722-73-55 13:10:00 Test Item Value Reference Range Interpretation Comments RBC (test code = RBC) 4.31 4.70-6.[address] [facility] [facility] HospitalJhlngieEDQXNEKLMS2104-00-60 13:10:00 Test Item Value Reference Range Interpretation Comments Hgb (test code = Hgb) 12.6 14.0-18.[address] [facility] HospitalDyknuyoFASZVTNPLC0916-33-47 13:10:00 Test Item Value Reference Range Interpretation Comments Hct (test code = Hct) 39.5 42.0-54.[address] [facility] Hos[id number] 13:10:00 Test Item Value Reference Range Interpretation Comments MCV (test code = MCV) 91.6 80.0-94.[address] [facility] HospitalSknutazDBCHSAWUTA3006-22-17 13:10:00 Test Item Value Reference Range Interpretation Comments MCH (test code = MCH) 29.3 pg 27.0-31.[address] HospitalTpdycpcBDDAHZWEXG3507-83-63 13:10:00 Test Item Value Reference Range Interpretation Comments MCHC (test code = MCHC) 32.0 32.0-36.[address] [facility] HospitalJcofoynCJOUICXKYZ0532-78-91 13:10:00 Test Item Value Reference Range Interpretation Comments RDW (test code = RDW) 15.5 11.5-14.[address] [facility] HospitalTtvwnhqWCFABAQPQR4442-69-53 13:10:00 Test Item Value Reference Range Interpretation Comments Platelet (test code = Platelet) 215 133-[address] [facility] HospitalBpasbmkTXTNDXKBDP5098-23-60 13:10:00 Test Item Value Reference Range Interpretation Comments MPV (test code = MPV) 9.0 7.4-10.[address] [facility] [facility] HospitalLtdnsfvQBCVCVEMLY4969-68-21 13:10:00 Test Item Value Reference Range Interpretation Comments AT III Func (test code = AT III Func) 118 77-[address] [facility] [facility] HospitalYvevnogXWMLNPUEOP6444-46-13 13:10:00 Test Item Value Reference Range Interpretation Comments F5 Leiden PCR (test Negative (03/16/19 7:10 code = F5 Leiden PCR) AM) [facility] HospitalDhabfxqZYUTJWWRZE0883-13-35 13:10:00 Test Item Value Reference Range Interpretation Comments F5 Leiden Intrp (test code = F5 See note Leiden Intrp) [facility] HospitalScvnjjqNMWYDFCDPK8439-32-74 13:10:00 Test Item Value Reference Range Interpretation Comments dRVV Ratio (test code = dRVV Ratio) 1.[address] [facility] HospitalDdfdeyqBBSCOIXJED5076-45-00 13:10:00 Test Item Value Reference Range Interpretation Comments Plt Neut Test (test code = Plt Neut Negative Test) [facility] HospitalSiylnryTHPOCRNRHE0434-78-53 13:10:00 Test Item Value Reference Range Interpretation Comments Hex Phos N (test code Negative (03/16/19 7:10 = Hex Phos N) AM) [facility] HospitalDmwuhxiXKBYTFFGLP2095-11-40 13:10:00 Test Item Value Reference Range Interpretation Comments Lup Interp (test Negative for lupus code = Lup Interp) anticoagulant (prolonged dRVVT, negative hexagonal phospholipid neutralization, and negative Platelet Neutralization procedure). Thrombin Time is normal (15.5 sec) which rules out heparin as interference substance. CPT: [address] [facility] HospitalAbtxtgcZVCVTZPQRL8739-17-21 13:10:00 Test Item Value Reference Range Interpretation Comments F2 Mutation PCR (test Negative (03/16/19 7:10 code = F2 Mutation PCR) AM) [facility] HospitalGmumdwlKQFYHPRDAW9160-46-62 13:10:00 Test Item Value Reference Range Interpretation Comments F2 Mut Interp (test code = F2 Mut See note Interp) [facility] HospitalKnqvdpdPBIXSUKWJA7614-89-88 13:10:00 Test Item Value Reference Range Interpretation Comments Protein C Func (test code = Protein C 118 72-147 Func) [facility] HospitalCgwqevqQSWFAANYZN1964-72-14 13:10:00 Test Item Value Reference Range Interpretation Comments Protein S Func (test code = Protein S 113 54-137 Func) [facility] HospitalDgznlzsKNZOOEOLQU3603-02-46 13:10:00 Test Item Value Reference Range Interpretation Comments Segs (test code = Segs) 58.7 45.0-75.0 [place] [id number] 13:10:00 Test Item Value Reference Range Interpretation Comments Lymphocytes (test code = Lymphocytes) 30.5 20.0-40.0 [place] 045030-01-15 13:10:00 Test Item Value Reference Range Interpretation Comments Monocytes (test code = Monocytes) 8.0 2.0-12.0 [place] 045030-01-15 13:10:00 Test Item Value Reference Range Interpretation Comments Eosinophils (test code = 2.2 See_Comment [A utomated message] The Eosinophils) system which ge nerated this result tra nsmitted reference range : <=4.0. The reference r carlos was not used to int erpret this result as normal/abnormal . [facility] HospitalUlebgeuAEDNFPJSVQ4669-24-11 13:10:00 Test Item Value Reference Range Interpretation Comments Basophils (test code = 0.6 See_Comment [Aut omated message] The Basophils) system which ge nerated this result tra nsmitted reference range : <=1.0. The reference r carlso was not used to int erpret this result as normal/abnormal . [facility] HospitalOexhrehXWEJCBNBOE5616-87-82 13:10:00 Test Item Value Reference Range Interpretation Comments Neutrophils # (test code = Neutrophils 5.0 1.5-8.1 #) [facility] HospitalBsnhxuzDMOLJDEIWE5732-32-57 13:10:00 Test Item Value Reference Range Interpretation Comments Lymphocytes # (test code = Lymphocytes 2.6 1.0-5.5 #) [place] 045030-01-15 13:10:00 Test Item Value Reference Range Interpretation Comments Monocytes # (test code 0.7 See_Comment [Aut omated message] The = Monocytes #) system which generated this result tra nsmitted reference range : <=0.8. The reference r carlos was not used to int erpret this result as normal/abnormal . [facility]CgzaqtrJECDBHZUKT8056-84-22 13:10:00 Test Item Value Reference Range Interpretation Comments Eosinophils # (test code 0.2 See_Comment [A utomated message] The = Eosinophils #) system whic h generated this result tra nsmitted reference range : <=0.5. The reference r carlos was not used to int erpret this result as normal/abnormal . [facility]AAWHPKISL[facility]19[facility] 13:10:00 Test Item Value Reference Range Interpretation Comments Cystatin C (test code = Cystatin C) 3.70 0.62-1.16 [facility]DogsatqZZXXQHDOBX2881-82-70 13:10:00 Test Item Value Reference Range Interpretation Comments Cardiolipin IgA (test code = no gt Cardiolipin IgA) [facility]QerxnkbDFRFSBMFXI8200-51-26 13:10:00 Test Item Value Reference Range Interpretation Comments Cardiolipin IgG (test code = no gt Cardiolipin IgG) [facility] TylerAdmeunnELRJSFWYQD6394-12-71 13:10:00 Test Item Value Reference Range Interpretation Comments Cardiolipin IgM (test code = 0.8 Cardiolipin IgM) [facility] TylerKnikycwLWDZSKTGQM7580-90-81 13:10:00 Test Item Value Reference Range Interpretation Comments Homocyst Tot (test code = Homocyst Tot) 16.5 3.7-13.9 [facility] TylerBjbeextFZSSWHOEBH0368-34-90 13:10:00 Test Item Value Reference Range Interpretation Comments Albumin % (test code = Albumin %) 51.0 55.8-66.1 [facility] TylerAdkzfzoKQMEZBIAKU5502-08-07 13:10:00 Test Item Value Reference Range Interpretation Comments Alpha 1 % (test code = Alpha 1 %) 8.6 2.8-4.9 [facility] TylerHpmcaizUYZKJUEJKO9618-11-58 13:10:00 Test Item Value Reference Range Interpretation Comments Alpha 2 % (test code = Alpha 2 %) 14.6 7.0-11.9 [facility] TylerEegwbfrJUOTEBDBIK1091-56-86 13:10:00 Test Item Value Reference Range Interpretation Comments Beta % (test code = Beta %) 12.4 7.8-13.7 [facility] TylerKouipdcQCURHJGVKO5974-73-65 13:10:00 Test Item Value Reference Range Interpretation Comments Gamma % (test code = Gamma %) 13.4 11.1-18.7 [facility] TylerZcpwpsnPZWKAPRAHA0313-43-81 13:10:00 Test Item Value Reference Range Interpretation Comments Albumin (SPE) (test code = Albumin 3.83 3.57-5.55 (SPE)) [facility] TylerEmjqyilLUPSDOILIG4106-74-06 13:10:00 Test Item Value Reference Range Interpretation Comments Alpha 1 Glob (test code = Alpha 1 Glob) 0.65 0.18-0.41 [facility]CuzxylnTZYRMONAEA7776-16-33 13:10:00 Test Item Value Reference Range Interpretation Comments Alpha 2 Glob (test code = Alpha 2 Glob) 1.10 0.45-1.00 [facility] CenterVxsdjdjTNPRPXOAYU5027-89-34 13:10:00 Test Item Value Reference Range Interpretation Comments Beta Glob (test code = Beta Glob) 0.93 0.50-1.15 [facility]enBgajpyyFNSHLYUIKE3999-47-58 13:10:00 Test Item Value Reference Range Interpretation Comments Gamma Glob (test code = Gamma Glob) 1.01 0.71-1.57 [facility] CenterXqxmwgsGJJAOIAQAN4212-04-94 13:10:00 Test Item Value Reference Range Interpretation Comments Tot Prot (SPE) (test code = Tot Prot 7.5 6.4-8.4 (SPE)) [facility] CenterXlsjegwIDRHZIVDLT1549-91-07 13:10:00 Test Item Value Reference Range Interpretation [...] and concur with the resident's interpretation. CPT 70610-UE [facility] CenterKkscoleHKVBAZGDHA7108-84-61 13:10:00 Test Item Value Reference Range Interpretation Comments Rennert Free Light Chains (test code = 110.41 3.30-19.40 Rennert Free Light Chains) [facility] CenterTykegdyHOTIZKCBXV5983-14-18 13:10:00 Test Item Value Reference Range Interpretation Comments Lambda Free Light Chains (test code = 40.85 5.70-26.30 Lambda Free Light Chains) [facility] CenterDqncwqtRJJEJUGVLD0424-28-25 13:10:00 Test Item Value Reference Range Interpretation Comments Rennert/Lambda Free Light Chains Ratio 2.70 0.26-1.65 (test code = Rennert/Lambda Free Light Chains Ratio) [facility] TylerLlodmycWVYREVYLCO5657-74-71 13:10:00 Test Item Value Reference Range Interpretation Comments CMV IgG (test code = Reactive *ABN*(03/16/19 CMV IgG) 7:10 AM) [facility] TylerEqjptsaRUOHARCORN3092-27-57 13:10:00 Test Item Value Reference Range Interpretation Comments EBV VCA IgG (test code = EBV VCA IgG) no gt [facility] TylerUlhbpbvOGUQLKYGFU8841-69-13 13:10:00 Test Item Value Reference Range Interpretation Comments HIV Ag/Ab 4th Gen Negative *NA*(03/16/19 (test code = HIV 7:10 AM) Ag/Ab 4th Gen) [facility] TylerUdaftsxGJPBZRHDLJ7988-61-85 13:10:00 Test Item Value Reference Range Interpretation Comments Hep A Tot (test code Positive *NA*(03/16/19 = Hep A Tot) 7:10 AM) [facility] TylerSomllkqPHBUODQIIM2024-10-18 13:10:00 Test Item Value Reference Range Interpretation Comments Hep Bs Ab (test code = Hep Bs Ab) no gt [facility] TylerKwbshksDTUTKRBBAU8301-85-03 13:10:00 Test Item Value Reference Range Interpretation Comments Hep B Core Ab (test Negative *NA*(03/16/19 code = Hep B Core Ab) 7:10 AM) [facility] TylerJeovqakBDYORPGBEV2507-89-67 13:10:00 Test Item Value Reference Range Interpretation Comments Hep Bs Ag (test code Negative *NA*(03/16/19 = Hep Bs Ag) 7:10 AM) [facility] TylerNqofxysYHJORMGALL5234-85-51 13:10:00 Test Item Value Reference Range Interpretation Comments Hep C Ab (test code = Negative *NA*(03/16/19 Hep C Ab) 7:10 AM) [facility] TylerZsagqflGIYPOXUUEB3353-82-82 13:10:00 Test Item Value Reference Range Interpretation Comments HSV 2 IgG (test code = HSV 2 IgG) no gt [facility] TylerVistumsGKAHBJOSVP0916-35-91 13:10:00 Test Item Value Reference Range Interpretation Comments HSV 1 IgG (test code = HSV 1 IgG) no [facility]2020-01-15 13:10:00 Test Item Value Reference Range Interpretation Comments T-Spot.TB (test code Negative (03/16/19 7:10 = T-Spot.TB) AM) [facility] TylerRvsdrubXMINZGMOXF1353-44-24 13:10:00 Test Item Value Reference Range Interpretation Comments Treponemal Ab (test code Non-Reactive = Treponemal Ab) *NA*(03/16/19 7:10 AM) [facility] CenterCwvuxdlHLFTFGJXMQ1403-62-37 13:10:00 Test Item Value Reference Range Interpretation Comments Varicella IgG (test code = Varicella no gt IgG) [facility] CenterMqtqjniVKPAJKYOJP0681-80-44 13:10:00 Test Item Value Reference Range Interpretation Comments Mumps IgG (test code = Mumps IgG) 5.1 [facility] CenterUwwetzbJAKROFYBHK5169-75-09 13:10:00 Test Item Value Reference Range Interpretation Comments Rubella IgG (test code = Rubella IgG) no gt [facility] McallenUawbwpzHBAQDQEPET5453-64-17 13:10:00 Test Item Value Reference Range Interpretation Comments Rubeola IgG (test code = Rubeola IgG) 2.0 [facility] CenterJeyfsfjCNGWEGBOEJ3803-16-88 13:10:00 Test Item Value Reference Range Interpretation Comments KAREN Ser Pattern A distinct monoclonal (test code = KAREN Ser band is present in the Pattern) IgM izabella with a corresponding faint band in the kappa light chain izabella. The polyclonal gamma globulin background is preserved in all lanes. [facility] CenterXnnnhtlOYKUAKIIMU5080-42-48 13:10:00 Test Item Value Reference Range Interpretation [...] and concur with the resident's interpretation. CPT 92311-WO [facility] CenterVsseonuMYHIEM3970-93-73 13:10:00 Test Item Value Reference Range Interpretation Comments Trig (test code = Trig) 138 [facility] CenterXvvpsgsULMFIQ1283-34-55 13:10:00 Test Item Value Reference Range Interpretation Comments Chol (test code = Chol) 183 [facility] CenterHdxxmmkVCASOZ7179-52-12 13:10:00 Test Item Value Reference Range Interpretation Comments HDL (test code = HDL) 40 [facility] CenterBdfurodYRBHST1135-79-52 13:10:00 Test Item Value Reference Range Interpretation Comments CHD Risk (test code = CHD Risk) 4.58 1 4.00-7.30 [facility] CenterSkzvlkaWPSGCK3912-57-83 13:10:00 Test Item Value Reference Range Interpretation Comments LDL (Calculated) (test code = LDL 115 (Calculated)) [facility] CenterZnkcmzkRYSBFY4054-76-33 13:10:00 Test Item Value Reference Range Interpretation Comments VLDL (test code = VLDL) 28 1 [facility] CenterPARASITOLOGY - JKJLQZPD0715-55-90 13:10:00 Test Item Value Reference Range Interpretation Comments Strongyloides Antibodies (test code Negative = Strongyloides Antibodies) [facility] CenterPARATHYROID HWBAFRE4652-61-30 13:10:00 Test Item Value Reference Range Interpretation Comments PTH Intact (test code = PTH Intact) 579.6 18.4-80.1 [facility] CenterSPECIAL YBNSJOYKN3182-70-75 13:10:00 Test Item Value Reference Range Interpretation Comments Nicotine Lvl (test code = None Detected Nicotine Lvl) [facility] THZYNUWGW1855-74-79 13:10:00 Test Item Value Reference Range Interpretation Comments Cotinine Lvl (test code = None Detected Cotinine Lvl) [facility] PMZZOMDGG4199-48-48 13:10:00 Test Item Value Reference Range Interpretation Comments Hgb A1C (test code = Hgb A1C) 6.1 [facility] LGMTRUBGL9339-67-95 13:10:00 Test Item Value Reference Range Interpretation Comments PSA (test code = PSA) 1.34 See_Comment [Auto mated message] The system which ge nerated this result transmit nicko reference range : <=4.00. The reference r carlos was not used to interpr et this result as adebayo l/abnormal. [facility] AND [id number] 13:10:00 Test Item Value Reference Range Interpretation Comments UA WBC (test code = 1 See_Comment [Automa nicko message] The UA WBC) system which ge nerated this result transmit nicko reference range : <=5. The reference range was not used to interpr et this result as adebayo l/abnormal. [facility] AND [id number] 13:10:00 Test Item Value Reference Range Interpretation Comments UA RBC (test code = 1 See_Comment [Automa nicko message] The UA RBC) system which ge nerated this result transmit nicko reference range : <=2. The reference range was not used to interpr et this result as adebayo l/abnormal. [facility] AND [id number] 13:10:00 Test Item Value Reference Range Interpretation Comments UA Color (test code = Yellow *NA*(03/16/19 UA Color) 7:10 AM) [facility] AND [id number] 13:10:00 Test Item Value Reference Range Interpretation Comments UA Turbidity (test code = Clear (03/16/19 7:10 UA Turbidity) AM) [facility] AND [id number] 13:10:00 Test Item Value Reference Range Interpretation Comments UA Spec Grav (test code = UA Spec 1.010 1 Grav) [facility] AND [id number] 13:10:00 Test Item Value Reference Range Interpretation Comments UA pH (test code = UA pH) 6.0 1 5.0-8.0 [facility] AND [id number] 13:10:00 Test Item Value Reference Range Interpretation Comments UA Protein (test code = UA Protein) 100 mg/dL [facility] AND [id number] 13:10:00 Test Item Value Reference Range Interpretation Comments UA Glucose (test code = UA Glucose) 100 mg/dL [facility] AND [id number] 13:10:00 Test Item Value Reference Range Interpretation Comments UA Ketones (test code Negative *NA*(03/16/19 = UA Ketones) 7:10 AM) [facility] AND [id number] 13:10:00 Test Item Value Reference Range Interpretation Comments UA Bili (test code = Negative *NA*(03/16/19 UA Bili) 7:10 AM) [facility] AND [id number] 13:10:00 Test Item Value Reference Range Interpretation Comments UA Blood (test code = Trace *ABN*(03/16/19 UA Blood) 7:10 AM) [facility] AND [id number] 13:10:00 Test Item Value Reference Range Interpretation Comments UA Urobilinogen (test code = UA 0.2 0.1-1.0 Urobilinogen) [facility] AND [id number] 13:10:00 Test Item Value Reference Range Interpretation Comments UA Nitrite (test code Negative (03/16/19 7:10 = [facility]A Nitrite) AM) [facility] [id number] 13:10:00 Test Item Value Reference Range Interpretation Comments UA Leuk Est (test Negative (03/16/19 7:10 code = UA Leuk Est) AM) [facility] [id number] 13:10:00 Test Item Value Reference Range Interpretation Comments UA Sq Epi (test code = None Seen (03/16/19 7:10 UA Sq Epi) AM) [facility] [id number] 13:10:00 Test Item Value Reference Range Interpretation Comments U Creatinine (test code = U Creatinine) 74.20 [facility] [id number] 13:10:00 Test Item Value Reference Range Interpretation Comments U Alb (test code = U Alb) 892.0 [facility] [id number] 13:10:00 Test Item Value Reference Range Interpretation Comments U Alb/Crea (test code = U Alb/Crea) 1202.2 [facility] [id number] 13:10:00 Test Item Value Reference Range Interpretation Comments U Creatinine (test code = U Creatinine) 74.20 [facility] [id number] 13:10:00 Test Item Value Reference Range Interpretation Comments U Protein (test code = U Protein) 149.5 [facility] [id number] 13:10:00 Test Item Value Reference Range Interpretation Comments U Prot/Creat (test code = U 2.01 1 Prot/Creat) [facility] [id number] 13:10:00 Test Item Value Reference Range Interpretation Comments U Creatinine (test code = U Creatinine) 74.20 [facility] [id number] 13:10:00 Test Item Value Reference Range Interpretation Comments U Alb (test code = U Alb) 892.0 [facility] [id number] 13:10:00 Test Item Value Reference Range Interpretation Comments U Alb/Crea (test code = U Alb/Crea) 1202.2 [facility] - [id number] 13:10:00 Test Item Value Reference Range Interpretation Comments T cruzi (Chagas) Ab (test code = Non Reactive T cruzi (Chagas) Ab) [facility] - [id number] 13:10:00 Test Item Value Reference Range Interpretation Comments W Nile Ab IgG (test code = W Nile Ab Negative IgG) [facility] - [id number] 13:10:00 Test Item Value Reference Range Interpretation Comments W Nile Ab IgM (test code = W Nile Ab Negative IgM) [facility] [id number] 13:10:00 Test Item Value Reference Range Interpretation Comments Ferritin Lvl (test code = Ferritin Lvl) 237 22-275 [facility]2020-01-15 13:10:00 Test Item Value Reference Range Interpretation Comments Iron (test code = Iron) 46 45-160 [facility]2020-01-15 13:10:00 Test Item Value Reference Range Interpretation Comments TIBC (test code = TIBC) 300 228-428 [facility]2020-01-15 13:10:00 Test Item Value Reference Range Interpretation Comments UIBC (test code = UIBC) 254 110-370 [facility]2020-01-15 13:10:00 Test Item Value Reference Range Interpretation Comments % Satur Fe (test code = % Satur Fe) 15 12-57 [facility]2020-01-15 13:10:00 Test Item Value Reference Range Interpretation Comments Glucose Lvl (test code = Glucose Lvl) 74 70-99 [facility]2020-01-15 13:10:00 Test Item Value Reference Range Interpretation Comments BUN (test code = BUN) 43 7-22 [facility]2020-01-15 13:10:00 Test Item Value Reference Range Interpretation Comments Creatinine Lvl (test code = Creatinine 4.40 0.50-1.40 Lvl) [facility]2020-01-15 13:10:00 Test Item Value Reference Range Interpretation Comments Sodium Lvl (test code = Sodium Lvl) 143 135-145 [facility]2020-01-15 13:10:00 Test Item Value Reference Range Interpretation Comments Potassium Lvl (test code = Potassium 3.9 3.5-5.1 Lvl) [facility]2020-01-15 13:10:00 Test Item Value Reference Range Interpretation Comments Chloride Lvl (test code = Chloride Lvl) 109 95-109 [facility]2020-01-15 13:10:00 Test Item Value Reference Range Interpretation Comments CO2 (test code = CO2) 26 24-32 [place] 435750-01-15 13:10:00 Test Item Value Reference Range Interpretation Comments Calcium Lvl (test code = Calcium Lvl) 8.5 8.5-10.5 [place] 435750-01-15 13:10:00 Test Item Value Reference Range Interpretation Comments Total Protein (test code = Total 7.5 6.4-8.4 Protein) [place] 435750-01-15 13:10:00 Test Item Value Reference Range Interpretation Comments Albumin Lvl (test code = Albumin Lvl) 3.4 3.5-5.0 [facility]2020-01-15 13:10:00 Test Item Value Reference Range Interpretation Comments ALT (test code = ALT) 16 See_Comment [Auto mated message] The system which ge nerated this result transmit nicko reference range : <=65. The reference range was not used to interpr et this result as adebayo l/abnormal. [facility]2020-01-15 13:10:00 Test Item Value Reference Range Interpretation Comments AST (test code = AST) 11 See_Comment [Auto mated message] The system which ge nerated this result transmit nicko reference range : <=37. The reference range was not used to interpr et this result as adebayo l/abnormal. [facility]2020-01-15 13:10:00 Test Item Value Reference Range Interpretation Comments Alk Phos (test code = Alk Phos) 68 39-136 [facility] [id number] 13:10:00 Test Item Value Reference Range Interpretation Comments Bili Total (test code = Bili Total) 0.3 0.2-1.3 [place] 435750-01-15 13:10:00 Test Item Value Reference Range Interpretation Comments AGAP (test code = AGAP) 11.9 10.0-20.0 [facility] [id number] 13:10:00 Test Item Value Reference Range Interpretation Comments B/C Ratio (test code = B/C Ratio) 10 1 6-25 [facility] [id number] 13:10:00 Test Item Value Reference Range Interpretation Comments Globulin (test code = Globulin) 4.1 2.7-4.2 [facility]2020-01-15 13:10:00 Test Item Value Reference Range Interpretation Comments A/G Ratio (test code = A/G Ratio) 0.8 1 0.7-1.6 [facility]2020-01-15 13:10:00 Test Item Value Reference Range Interpretation Comments eGFR (test code = eGFR) 13 [facility]2020-01-15 13:10:00 Test Item Value Reference Range Interpretation Comments Magnesium Lvl (test code = Magnesium 1.2 1.8-2.4 Lvl) [facility]2020-01-15 13:10:00 Test Item Value Reference Range Interpretation Comments Phosphorus (test code = Phosphorus) 3.9 2.5-4.5 [facility]2020-01-15 13:10:00 Test Item Value Reference Range Interpretation Comments Uric Acid (test code = Uric Acid) 7.1 3.8-8.0 [facility]2020-01-15 13:10:00 Test Item Value Reference Range Interpretation Comments Vitamin D, 25-OH, Total (test code = 42.0 30.0-100.0 Vitamin D, 25-OH, Total) [facility]2020-01-15 13:10:00 Test Item Value Reference Range Interpretation Comments LDH (test code = LDH) 164 98-192 [facility]2020-01-15 13:10:00 Test Item Value Reference Range Interpretation Comments Creatinine Lvl (test code = Creatinine 4.39 0.50-1.40 Lvl) [facility]2020-01-15 13:10:00 Test Item Value Reference Range Interpretation Comments eGFR (test code = eGFR) 13 [facility] CenterNets[facility] Technologies [id number] 13:10:00 Test Item Value Reference Range Interpretation Comments Phencyclidine Scr (test code = Negative Phencyclidine Scr) [facility] [id number] 13:10:00 Test Item Value Reference Range Interpretation Comments Kaitlin Scr (test code = Kaitlin Scr) Negative [facility] [id number] 13:10:00 Test Item Value Reference Range Interpretation Comments Cannab Scr (test code = Cannab Scr) Negative [facility]DR[facility] [id number] 13:10:00 Test Item Value Reference Range Interpretation Comments Methadone Scr (test code = Methadone Negative Scr) [facility]DR[facility] [id number] 13:10:00 Test Item Value Reference Range Interpretation Comments Cocaine Scr (test code = Cocaine Negative Scr) [facility] [id number] 13:10:00 Test Item Value Reference Range Interpretation Comments Benzodiaz Scr (test code = Benzodiaz Negative Scr) [facility] [id number] 13:10:00 Test Item Value Reference Range Interpretation Comments Amph Scr (test code = Amph Scr) Negative [facility] [id number] 13:10:00 Test Item Value Reference Range Interpretation Comments Opiate Scr (test code = Opiate Scr) Positive [facility]DR[facility] [id number] 13:10:00 Test Item Value Reference Range Interpretation Comments 6-Acetylmor Scr (test code = Negative 6-Acetylmor Scr) [facility] [id number] 13:10:00 Test Item Value Reference Range Interpretation Comments Opiate Qnt (test code = Opiate Qnt) Positive [facility] CenterLnnkphqBWMLCEUCEK9235-80-70 13:10:00 Test Item Value Reference Range Interpretation Comments PT (test code = PT) 12.8 s 12.0-14.7 [facility]TbcxqzsEGFCAZCJMQ7166-99-91 13:10:00 Test Item Value Reference Range Interpretation Comments INR (test code = INR) 0.96 1 0.85-1.[address] [facility] HospitalMzlpeteTEPXOEVPEW4534-82-19 13:10:00 Test Item Value Reference Range Interpretation Comments PTT (test code = PTT) 33.5 s 22.9-35.8 [facility] RegionRsklgjvXHDONKUPQX8084-00-33 13:10:00 Test Item Value Reference Range Interpretation Comments WBC (test code = WBC) 8.5 3.7-10.[address] [facility] HospitalMvndpsbQCXNICLJOD4192-90-66 13:10:00 Test Item Value Reference Range Interpretation Comments RBC (test code = RBC) 4.31 4.70-6.10 [facility] RegionVtnplsqAWQMUNAVJN6175-43-15 13:10:00 Test Item Value Reference Range Interpretation Comments Hgb (test code = Hgb) 12.6 14.0-18.0 [facility] RegionWrtjkrcGPQJCSJUYF9032-04-29 13:10:00 Test Item Value Reference Range Interpretation Comments Hct (test code = Hct) 39.5 42.0-54.[address] [facility] HospitalOlmixmrAWJHGHXFIU4799-73-02 13:10:00 Test Item Value Reference Range Interpretation Comments MCV (test code = MCV) 91.6 80.0-94.[address] [facility] HospitalPuqscxaALBEKOFMIL8783-90-76 13:10:00 Test Item Value Reference Range Interpretation Comments MCH (test code = MCH) 29.3 pg 27.0-31.[address] [facility] HospitalLwvigrdJDOUMXIUTM2538-58-25 13:10:00 Test Item Value Reference Range Interpretation Comments MCHC (test code = MCHC) 32.0 32.0-36.[address] [facility] HospitalSuxqaubKRYEVLJIHL3669-03-90 13:10:00 Test Item Value Reference Range Interpretation Comments RDW (test code = RDW) 15.5 11.5-14.[address] [facility] [facility] HospitalNqchxlzQWAYFWHXCO5300-70-11 13:10:00 Test Item Value Reference Range Interpretation Comments Platelet (test code = Platelet) 215 133-[address] [facility] HospitalCuntozgUVKXGLLULD9144-32-39 13:10:00 Test Item Value Reference Range Interpretation Comments MPV (test code = MPV) 9.0 7.4-10.[address] [facility] HospitalOwrfkiiKIOWBGOKUP0858-92-40 13:10:00 Test Item Value Reference Range Interpretation Comments AT III Func (test code = AT III Func) 118 77-[address] [facility] [facility] HospitalTenvxadISLMUJYWCQ4340-67-66 13:10:00 Test Item Value Reference Range Interpretation Comments F5 Leiden PCR (test Negative (03/16/19 7:10 code = F5 Leiden PCR) AM) [facility] HospitalPyzdvenDEIYCZGTDW5211-75-08 13:10:00 Test Item Value Reference Range Interpretation Comments F5 Leiden Intrp (test code = F5 See note Leiden Intrp) [facility] HospitalGdqlwkyLIHJBCQLAR4249-60-78 13:10:00 Test Item Value Reference Range Interpretation Comments dRVV Ratio (test code = dRVV Ratio) 1.[address] [facility] HospitalKmnshzrEEZCWJVWSB4976-91-82 13:10:00 Test Item Value Reference Range Interpretation Comments Plt Neut Test (test code = Plt Neut Negative Test) [facility] HospitalWmlrzbdEDZKWRAZYU9428-98-27 13:10:00 Test Item Value Reference Range Interpretation Comments Hex Phos N (test code Negative (03/16/19 7:10 = Hex Phos N) AM) [facility] HospitalOshxktzIXBPZVNLHI4703-51-37 13:10:00 Test Item Value Reference Range Interpretation Comments Lup Interp (test Negative for lupus code = Lup Interp) anticoagulant (prolonged dRVVT, negative hexagonal phospholipid neutralization, and negative Platelet Neutralization procedure). Thrombin Time is normal (15.5 sec) which rules out heparin as interference substance. CPT: [address] [facility]BvmajocATMZXCOONQ1298-64-28 13:10:00 Test Item Value Reference Range Interpretation Comments F2 Mutation PCR (test Negative (03/16/19 7:10 code = F2 Mutation PCR) AM) [place] 045030-01-15 13:10:00 Test Item Value Reference Range Interpretation Comments F2 Mut Interp (test code = F2 Mut See note Interp) [facility] HospitalBnjzgypAYZQJPOXCS3096-94-38 13:10:00 Test Item Value Reference Range Interpretation Comments Protein C Func (test code = Protein C 118 72-147 Func) [place] 045030-01-15 13:10:00 Test Item Value Reference Range Interpretation Comments Protein S Func (test code = Protein S 113 54-137 Func) [place] 045030-01-15 13:10:00 Test Item Value Reference Range Interpretation Comments Segs (test code = Segs) 58.7 45.0-75.0 [place] 045030-01-15 13:10:00 Test Item Value Reference Range Interpretation Comments Lymphocytes (test code = Lymphocytes) 30.5 20.0-40.0 [place] [address]-01-15 13:10:00 Test Item Value Reference Range Interpretation Comments Monocytes (test code = Monocytes) 8.0 2.0-12.0 [place] [address]-01-15 13:10:00 Test Item Value Reference Range Interpretation Comments Eosinophils (test code = 2.2 See_Comment [A utomated message] The Eosinophils) system which ge nerated this result tra nsmitted reference range : <=4.0. The reference r carlos was not used to int erpret this result as normal/abnormal . [place] [address]-01-15 13:10:00 Test Item Value Reference Range Interpretation Comments Basophils (test code = 0.6 See_Comment [Aut omated message] The Basophils) system which ge nerated this result tra nsmitted reference range : <=1.0. The reference r carlos was not used to int erpret this result as normal/abnormal . [facility] HospitalLpdasomTJIEGRUKVD8738-00-07 13:10:00 Test Item Value Reference Range Interpretation Comments Neutrophils # (test code = Neutrophils 5.0 1.5-8.1 #) [facility] HospitalQeymyrmJKNGUITRQT8845-39-18 13:10:00 Test Item Value Reference Range Interpretation Comments Lymphocytes # (test code = Lymphocytes 2.6 1.0-5.5 #) [facility] HospitalQgsrheoDWSZSHTHWN6889-58-28 13:10:00 Test Item Value Reference Range Interpretation Comments Monocytes # (test code 0.7 See_Comment [Aut omated message] The = Monocytes #) system which generated this result tra nsmitted reference range : <=0.8. The reference r carlos was not used to int erpret this result as normal/abnormal . [facility] HospitalSptegabORVKHUEAPW3485-54-66 13:10:00 Test Item Value Reference Range Interpretation Comments Eosinophils # (test code 0.2 See_Comment [A utomated message] The = Eosinophils #) system whic h generated this result tra nsmitted reference range : <=0.5. The reference r carlos was not used to int erpret this result as normal/abnormal . [facility]cbmjyxUKWAFJRHVI5781[facility]-44 13:10:00 Test Item Value Reference Range Interpretation Comments Cystatin C (test code = Cystatin C) 3.70 0.62-1.16 [facility] TylerMfxvshtJRTXDWKZTA2053-07-96 13:10:00 Test Item Value Reference Range Interpretation Comments Cardiolipin IgA (test code = no gt Cardiolipin IgA) [place] 123880-01-15 13:10:00 Test Item Value Reference Range Interpretation Comments Cardiolipin IgG (test code = no gt Cardiolipin IgG) [place] 123880-01-15 13:10:00 Test Item Value Reference Range Interpretation Comments Cardiolipin IgM (test code = 0.8 Cardiolipin IgM) [place] 123880-01-15 13:10:00 Test Item Value Reference Range Interpretation Comments Homocyst Tot (test code = Homocyst Tot) 16.5 3.7-13.9 [place] 123880-01-15 13:10:00 Test Item Value Reference Range Interpretation Comments Albumin % (test code = Albumin %) 51.0 55.8-66.1 [facility] CenterXfsdaktYMRWGCXHVN0594-99-76 13:10:00 Test Item Value Reference Range Interpretation Comments Alpha 1 % (test code = Alpha 1 %) 8.6 2.8-4.9 [facility] CenterDlngmvlSFBPPSGSCB7511-29-93 13:10:00 Test Item Value Reference Range Interpretation Comments Alpha 2 % (test code = Alpha 2 %) 14.6 7.0-11.9 [facility] CenterFctrvkyOFGPYLLWDQ7556-81-99 13:10:00 Test Item Value Reference Range Interpretation Comments Beta % (test code = Beta %) 12.4 7.8-13.7 [facility] CenterLcvbvpmDFBJYJQSUV8074-78-67 13:10:00 Test Item Value Reference Range Interpretation Comments Gamma % (test code = Gamma %) 13.4 11.1-18.7 [facility] TylerZhdfaqiDHIERQKEMM8953-17-67 13:10:00 Test Item Value Reference Range Interpretation Comments Albumin (SPE) (test code = Albumin 3.83 3.57-5.55 (SPE)) [facility] TylerMhrzasjHNXNHWTYYO6446-37-28 13:10:00 Test Item Value Reference Range Interpretation Comments Alpha 1 Glob (test code = Alpha 1 Glob) 0.65 0.18-0.41 [facility] CenterUswkjxpZZRZFYXLUE4105-01-13 13:10:00 Test Item Value Reference Range Interpretation Comments Alpha 2 Glob (test code = Alpha 2 Glob) 1.10 0.45-1.00 [facility] TylerIpqjvsfIXNQXZSCXH1053-49-95 13:10:00 Test Item Value Reference Range Interpretation Comments Beta Glob (test code = Beta Glob) 0.93 0.50-1.15 [facility] CenterEuzhznmYBAYZDNGFO4057-59-75 13:10:00 Test Item Value Reference Range Interpretation Comments Gamma Glob (test code = Gamma Glob) 1.01 0.71-1.57 [facility] CenterAjnnzacDMLLAMRDZZ6948-34-74 13:10:00 Test Item Value Reference Range Interpretation Comments Tot Prot (SPE) (test code = Tot Prot 7.5 6.4-8.4 (SPE)) [facility] TylerBsalqviUQTAHVUPBS4574-55-04 13:10:00 Test Item Value Reference Range Interpretation [...] and concur with the resident's interpretation. CPT 83092-KL [facility] CenterNrsuyzsYTFORMSSSW2849-03-94 13:10:00 Test Item Value Reference Range Interpretation Comments Rennert Free Light Chains (test code = 110.41 3.30-19.40 Rennert Free Light Chains) [facility] CenterJfbbysiBIAEEYFWGH9292-87-54 13:10:00 Test Item Value Reference Range Interpretation Comments Lambda Free Light Chains (test code = 40.85 5.70-26.30 Lambda Free Light Chains) [facility] CenterUgbdwjnSHLKAIHFRO4966-98-48 13:10:00 Test Item Value Reference Range Interpretation Comments Rennert/Lambda Free Light Chains Ratio 2.70 0.26-1.65 (test code = Rennert/Lambda Free Light Chains Ratio) [facility] CenterHvawobqGWHZRQAUND7429-88-85 13:10:00 Test Item Value Reference Range Interpretation Comments CMV IgG (test code = Reactive *ABN*(03/16/19 CMV IgG) 7:10 AM) [facility] TylerZsrinqqQXOGTRJHBZ4459-84-20 13:10:00 Test Item Value Reference Range Interpretation Comments EBV VCA IgG (test code = EBV VCA IgG) no gt [facility] TylerRgbexmdAGPIFEHDLB9135-03-90 13:10:00 Test Item Value Reference Range Interpretation Comments HIV Ag/Ab 4th Gen Negative *NA*(03/16/19 (test code = HIV 7:10 AM) Ag/Ab 4th Gen) [facility] CenterIcmopkiXUWHIJOCSV6489-54-55 13:10:00 Test Item Value Reference Range Interpretation Comments Hep A Tot (test code Positive *NA*(03/16/19 = Hep A Tot) 7:10 AM) [facility] TylerVbysspqZWZVKUKZXH9445-86-31 13:10:00 Test Item Value Reference Range Interpretation Comments Hep Bs Ab (test code = Hep Bs Ab) no gt [facility] TylerFlvptdyCVDCLLJTQJ4413-40-48 13:10:00 Test Item Value Reference Range Interpretation Comments Hep B Core Ab (test Negative *NA*(03/16/19 code = Hep B Core Ab) 7:10 AM) [facility] CenterRwxqkbuSFADGFKLUO7050-83-39 13:10:00 Test Item Value Reference Range Interpretation Comments Hep Bs Ag (test code Negative *NA*(03/16/19 = Hep Bs Ag) 7:10 AM) [facility] TylerTpffypwWGBSSUCDLN8402-33-42 13:10:00 Test Item Value Reference Range Interpretation Comments Hep C Ab (test code = Negative *NA*(03/16/19 Hep C Ab) 7:10 AM) [facility] TylerZmdvjlfCFACFFEVTP0465-13-40 13:10:00 Test Item Value Reference Range Interpretation Comments HSV 2 IgG (test code = HSV 2 IgG) no gt [facility] CenterHexbdqtWGVSPKPTSU4149-11-66 13:10:00 Test Item Value Reference Range Interpretation Comments HSV 1 IgG (test code = HSV 1 IgG) no [facility]DgrsgwiAZWVEJGJJU0965-26-19 13:10:00 Test Item Value Reference Range Interpretation Comments T-Spot.TB (test code Negative (03/16/19 7:10 = T-Spot.TB) AM) [facility] TylerLvhktqmNGCEFIMHNO1971-73-38 13:10:00 Test Item Value Reference Range Interpretation Comments Treponemal Ab (test code Non-Reactive = Treponemal Ab) *NA*(03/16/19 7:10 AM) [facility] TylerOftzqepRPFZEQMRXU2143-98-37 13:10:00 Test Item Value Reference Range Interpretation Comments Varicella IgG (test code = Varicella no gt IgG) [facility] TylerIkdoohwCBVUWNBRBX4143-52-78 13:10:00 Test Item Value Reference Range Interpretation Comments Mumps IgG (test code = Mumps IgG) 5.1 [facility] CenterAdalvwjTHITUGQQAY4698-38-41 13:10:00 Test Item Value Reference Range Interpretation Comments Rubella IgG (test code = Rubella IgG) no gt [facility] CenterXordsyrRENXGQTVKT2697-06-25 13:10:00 Test Item Value Reference Range Interpretation Comments Rubeola IgG (test code = Rubeola IgG) 2.0 [facility] TylerKultyapKHGGHIJKCR8312-90-00 13:10:00 Test Item Value Reference Range Interpretation Comments KAREN Ser Pattern A distinct monoclonal (test code = KAREN Ser band is present in the Pattern) IgM izabella with a corresponding faint band in the kappa light chain izabella. The polyclonal gamma globulin background is preserved in all lanes. [facility] TylerSmddtnhUOUPZXDYDI9338-16-43 13:10:00 Test Item Value Reference Range Interpretation [...] and concur with the resident's interpretation. CPT 35884-TM [facility] CenterXzklrzbIROQBU9629-99-33 13:10:00 Test Item Value Reference Range Interpretation Comments Trig (test code = Trig) 138 [facility] CenterQhuiavmTNJDTF8602-18-40 13:10:00 Test Item Value Reference Range Interpretation Comments Chol (test code = Chol) 183 [facility] CenterUlknemoSKQVQL2543-01-21 13:10:00 Test Item Value Reference Range Interpretation Comments HDL (test code = HDL) 40 [facility] CenterDodqiuaBWKBJO1285-57-66 13:10:00 Test Item Value Reference Range Interpretation Comments CHD Risk (test code = CHD Risk) 4.58 1 4.00-7.30 [facility] CenterTrdltcnIMSSUK2031-09-55 13:10:00 Test Item Value Reference Range Interpretation Comments LDL (Calculated) (test code = LDL 115 (Calculated)) [facility] CenterXawanqiOGVWLH3911-82-73 13:10:00 Test Item Value Reference Range Interpretation Comments VLDL (test code = VLDL) 28 1 [facility] CenterPARASITOLOGY - [id number] 13:10:00 Test Item Value Reference Range Interpretation Comments Strongyloides Antibodies (test code Negative = Strongyloides Antibodies) [facility] CenterPARATHYROID [id number] 13:10:00 Test Item Value Reference Range Interpretation Comments PTH Intact (test code = PTH Intact) 579.6 18.4-80.1 [facility] CenterSPECIAL HCGDRUNPV0825-67-73 13:10:00 Test Item Value Reference Range Interpretation Comments Nicotine Lvl (test code = None Detected Nicotine Lvl) [facility] CenterSPECIAL KCNGUOVEN4046-82-57 13:10:00 Test Item Value Reference Range Interpretation Comments Cotinine Lvl (test code = None Detected Cotinine Lvl) [facility] RNNJLOCCG7116-69-12 13:10:00 Test Item Value Reference Range Interpretation Comments Hgb A1C (test code = Hgb A1C) 6.1 [facility] [id number] 13:10:00 Test Item Value Reference Range Interpretation Comments PSA (test code = PSA) 1.34 See_Comment [Auto mated message] The system which ge nerated this result transmit nicko reference range : <=4.00. The reference r carlos was not used to interpr et this result as adebayo l/abnormal. [facility] [id number] 13:10:00 Test Item Value Reference Range Interpretation Comments UA WBC (test code = 1 See_Comment [Automa nicko message] The UA WBC) system which ge nerated this result transmit nicko reference range : <=5. The reference range was not used to interpr et this result as adebayo l/abnormal. [facility] [id number] 13:10:00 Test Item Value Reference Range Interpretation Comments UA RBC (test code = 1 See_Comment [Automa nicko message] The UA RBC) system which ge nerated this result transmit nicko reference range : <=2. The reference range was not used to interpr et this result as adebayo l/abnormal. [facility] [id number] 13:10:00 Test Item Value Reference Range Interpretation Comments UA Color (test code = Yellow *NA*(03/16/19 UA Color) 7:10 AM) [facility] AND [id number] 13:10:00 Test Item Value Reference Range Interpretation Comments UA Turbidity (test code = Clear (03/16/19 7:10 UA Turbidity) AM) [facility] [id number] 13:10:00 Test Item Value Reference Range Interpretation Comments UA Spec Grav (test code = UA Spec 1.010 1 Grav) [facility] AND [id number] 13:10:00 Test Item Value Reference Range Interpretation Comments UA pH (test code = UA pH) 6.0 1 5.0-8.0 [facility] [id number] 13:10:00 Test Item Value Reference Range Interpretation Comments UA Protein (test code = UA Protein) 100 mg/dL [facility] AND [id number] 13:10:00 Test Item Value Reference Range Interpretation Comments UA Glucose (test code = UA Glucose) 100 mg/dL [facility] [id number] 13:10:00 Test Item Value Reference Range Interpretation Comments UA Ketones (test code Negative *NA*(03/16/19 = UA Ketones) 7:10 AM) [facility] [id number] 13:10:00 Test Item Value Reference Range Interpretation Comments UA Bili (test code = Negative *NA*(03/16/19 UA Bili) 7:10 AM) [facility] [id number] 13:10:00 Test Item Value Reference Range Interpretation Comments UA Blood (test code = Trace *ABN*(03/16/19 UA Blood) 7:10 AM) [facility] [id number] 13:10:00 Test Item Value Reference Range Interpretation Comments UA Urobilinogen (test code = UA 0.2 0.1-1.0 Urobilinogen) [facility] [id number] 13:10:00 Test Item Value Reference Range Interpretation Comments UA Nitrite (test code Negative (03/16/19 7:10 = UA Nitrite) AM) [facility] [id number] 13:10:00 Test Item Value Reference Range Interpretation Comments UA Leuk Est (test Negative (03/16/19 7:10 code = UA Leuk Est) AM) [facility] [id number] 13:10:00 Test Item Value Reference Range Interpretation Comments UA Sq Epi (test code = None Seen (03/16/19 7:10 UA Sq Epi) AM) [facility] [id number] 13:10:00 Test Item Value Reference Range Interpretation Comments U Creatinine (test code = U Creatinine) 74.20 [facility] [id number] 13:10:00 Test Item Value Reference Range Interpretation Comments U Alb (test code = U Alb) 892.0 [facility] [id number] 13:10:00 Test Item Value Reference Range Interpretation Comments U Alb/Crea (test code = U Alb/Crea) 1202.2 [facility] [id number] 13:10:00 Test Item Value Reference Range Interpretation Comments U Creatinine (test code = U Creatinine) 74.20 [facility] [id number] 13:10:00 Test Item Value Reference Range Interpretation Comments U Protein (test code = U Protein) 149.5 [facility] [id number] 13:10:00 Test Item Value Reference Range Interpretation Comments U Prot/Creat (test code = U 2.01 1 Prot/Creat) [facility]2020-01-15 13:10:00 Test Item Value Reference Range Interpretation Comments U Creatinine (test code = U Creatinine) 74.20 [facility]2020-01-15 13:10:00 Test Item Value Reference Range Interpretation Comments U Alb (test code = U Alb) 892.0 [facility]2020-01-15 13:10:00 Test Item Value Reference Range Interpretation Comments U Alb/Crea (test code = U Alb/Crea) 1202.2 [facility] - [id number] 13:10:00 Test Item Value Reference Range Interpretation Comments T cruzi (Chagas) Ab (test code = Non Reactive T cruzi (Chagas) Ab) [facility] [id number] 13:10:00 Test Item Value Reference Range Interpretation Comments W Nile Ab IgG (test code = W Nile Ab Negative IgG) [facility] - [id number] 13:10:00 Test Item Value Reference Range Interpretation Comments W Nile Ab IgM (test code = W Nile Ab Negative IgM) [facility] [id number] 13:10:00 Test Item Value Reference Range Interpretation Comments Ferritin Lvl (test code = Ferritin Lvl) 237 22-275 [facility] [id number] 13:10:00 Test Item Value Reference Range Interpretation Comments Iron (test code = Iron) 46 45-160 [facility] [id number] 13:10:00 Test Item Value Reference Range Interpretation Comments TIBC (test code = TIBC) 300 228-428 [facility] [id number] 13:10:00 Test Item Value Reference Range Interpretation Comments UIBC (test code = UIBC) 254 110-370 [facility] [id number] 13:10:00 Test Item Value Reference Range Interpretation Comments % Satur Fe (test code = % Satur Fe) 15 12-57 [facility] [id number] 13:10:00 Test Item Value Reference Range Interpretation Comments Glucose Lvl (test code = Glucose Lvl) 74 70-99 [place] 435750-01-15 13:10:00 Test Item Value Reference Range Interpretation Comments BUN (test code = BUN) 43 7-22 [place] 435750-01-15 13:10:00 Test Item Value Reference Range Interpretation Comments Creatinine Lvl (test code = Creatinine 4.40 0.50-1.40 Lvl) [facility]2020-01-15 13:10:00 Test Item Value Reference Range Interpretation Comments Sodium Lvl (test code = Sodium Lvl) 143 135-145 [place] 435750-01-15 13:10:00 Test Item Value Reference Range Interpretation Comments Potassium Lvl (test code = Potassium 3.9 3.5-5.1 Lvl) [place] 435750-01-15 13:10:00 Test Item Value Reference Range Interpretation Comments Chloride Lvl (test code = Chloride Lvl) 109 95-109 [facility]2020-01-15 13:10:00 Test Item Value Reference Range Interpretation Comments CO2 (test code = CO2) 26 24-32 [place] 435750-01-15 13:10:00 Test Item Value Reference Range Interpretation Comments Calcium Lvl (test code = Calcium Lvl) 8.5 8.5-10.5 [facility]2020-01-15 13:10:00 Test Item Value Reference Range Interpretation Comments Total Protein (test code = Total 7.5 6.4-8.4 Protein) [facility]2020-01-15 13:10:00 Test Item Value Reference Range Interpretation Comments Albumin Lvl (test code = Albumin Lvl) 3.4 3.5-5.0 [facility]2020-01-15 13:10:00 Test Item Value Reference Range Interpretation Comments ALT (test code = ALT) 16 See_Comment [Auto mated message] The system which ge nerated this result transmit nicko reference range : <=65. The reference range was not used to interpr et this result as adebayo l/abnormal. [place] 435750-01-15 13:10:00 Test Item Value Reference Range Interpretation Comments AST (test code = AST) 11 See_Comment [Auto mated message] The system which ge nerated this result transmit nicko reference range : <=37. The reference range was not used to interpr et this result as adebayo l/abnormal. [facility] [place] [id number] 13:10:00 Test Item Value Reference Range Interpretation Comments Alk Phos (test code = Alk Phos) 68 39-136 [facility] [id number] 13:10:00 Test Item Value Reference Range Interpretation Comments Bili Total (test code = Bili Total) 0.3 0.2-1.3 [facility] [id number] 13:10:00 Test Item Value Reference Range Interpretation Comments AGAP (test code = AGAP) 11.9 10.0-20.0 [facility] [place] [id number] 13:10:00 Test Item Value Reference Range Interpretation Comments B/C Ratio (test code = B/C Ratio) 10 1 6-25 [facility] [id number] 13:10:00 Test Item Value Reference Range Interpretation Comments Globulin (test code = Globulin) 4.1 2.7-4.2 [facility] [id number] 13:10:00 Test Item Value Reference Range Interpretation Comments A/G Ratio (test code = A/G Ratio) 0.8 1 0.7-1.6 [facility] [id number] 13:10:00 Test Item Value Reference Range Interpretation Comments eGFR (test code = eGFR) 13 [facility] [id number] 13:10:00 Test Item Value Reference Range Interpretation Comments Magnesium Lvl (test code = Magnesium 1.2 1.8-2.4 Lvl) [facility] [id number] 13:10:00 Test Item Value Reference Range Interpretation Comments Phosphorus (test code = Phosphorus) 3.9 2.5-4.5 [facility] [place] [id number] 13:10:00 Test Item Value Reference Range Interpretation Comments Uric Acid (test code = Uric Acid) 7.1 3.8-8.0 [facility] [id number] 13:10:00 Test Item Value Reference Range Interpretation Comments Vitamin D, 25-OH, Total (test code = 42.0 30.0-100.0 Vitamin D, 25-OH, Total) [facility]CHE[facility] [id number] 13:10:00 Test Item Value Reference Range Interpretation Comments LDH (test code = LDH) 164 98-192 [facility] [id number] 13:10:00 Test Item Value Reference Range Interpretation Comments Creatinine Lvl (test code = Creatinine 4.39 0.50-1.40 Lvl) [facility] [id number] 13:10:00 Test Item Value Reference Range Interpretation Comments eGFR (test code = eGFR) 13 [facility] [id number] 13:10:00 Test Item Value Reference Range Interpretation Comments Phencyclidine Scr (test code = Negative Phencyclidine Scr) [facility] [id number] 13:10:00 Test Item Value Reference Range Interpretation Comments Kaitlin Scr (test code = Kaitlin Scr) Negative [facility] [id number] 13:10:00 Test Item Value Reference Range Interpretation Comments Cannab Scr (test code = Cannab Scr) Negative [facility] [id number] 13:10:00 Test Item Value Reference Range Interpretation Comments Methadone Scr (test code = Methadone Negative Scr) [facility] [id number] 13:10:00 Test Item Value Reference Range Interpretation Comments Cocaine Scr (test code = Cocaine Negative Scr) [facility] [id number] 13:10:00 Test Item Value Reference Range Interpretation Comments Benzodiaz Scr (test code = Benzodiaz Negative Scr) [facility] [id number] 13:10:00 Test Item Value Reference Range Interpretation Comments Amph Scr (test code = Amph Scr) Negative [facility] [id number] 13:10:00 Test Item Value Reference Range Interpretation Comments Opiate Scr (test code = Opiate Scr) Positive [facility] [id number] 13:10:00 Test Item Value Reference Range Interpretation Comments 6-Acetylmor Scr (test code = Negative 6-Acetylmor Scr) [facility] [id number] 13:10:00 Test Item Value Reference Range Interpretation Comments Opiate Qnt (test code = Opiate Qnt) Positive [facility] McallenYgfcprwNJADYPXFUB9572-01-95 13:10:00 Test Item Value Reference Range Interpretation Comments PT (test code = PT) 12.8 s 12.0-14.[address] [facility] [facility] H[id number] 13:10:00 Test Item Value Reference Range Interpretation Comments INR (test code = INR) 0.96 1 0.85-1.[address] [facility] [facility] HospitalIpycvbtCSJBVDZERF3887-30-08 13:10:00 Test Item Value Reference Range Interpretation Comments PTT (test code = PTT) 33.5 s 22.9-35.8 [place] 045030-01-15 13:10:00 Test Item Value Reference Range Interpretation Comments WBC (test code = WBC) 8.5 3.7-10.[address] [facility]HqzujqoEWOWHUISVG0601-98-92 13:10:00 Test Item Value Reference Range Interpretation Comments RBC (test code = RBC) 4.31 4.70-6.[address] [facility] HospitalVojiofmTXEPJIEXZL6377-62-31 13:10:00 Test Item Value Reference Range Interpretation Comments Hgb (test code = Hgb) 12.6 14.0-18.[address] [facility] HospitalJysdbtpPOQLXVYOVX9582-18-63 13:10:00 Test Item Value Reference Range Interpretation Comments Hct (test code = Hct) 39.5 42.0-54.[address] [facility] HospitalDqkzhcbCAGFEDNLBJ8104-14-30 13:10:00 Test Item Value Reference Range Interpretation Comments MCV (test code = MCV) 91.6 80.0-94.[address] [facility] HospitalOkspczzXBOVHICHRB3649-16-63 13:10:00 Test Item Value Reference Range Interpretation Comments MCH (test code = MCH) 29.3 pg 27.0-31.[address] [facility] HospitalLetekvrGBITCAGYBX7295-08-09 13:10:00 Test Item Value Reference Range Interpretation Comments MCHC (test code = MCHC) 32.0 32.0-36.[address] [facility] HospitalNludmygTYODRLYENW4266-09-41 13:10:00 Test Item Value Reference Range Interpretation Comments RDW (test code = RDW) 15.5 11.5-14.[address] [facility] HospitalHwjyyakAHWPYEABWZ5724-26-19 13:10:00 Test Item Value Reference Range Interpretation Comments Platelet (test code = Platelet) 215 133-[address] [facility] HospitalTmzdcprCQAEAUDZPT5891-63-04 13:10:00 Test Item Value Reference Range Interpretation Comments MPV (test code = MPV) 9.0 7.4-10.[address] [facility] HospitalRptvyhuQOYXJSUCXA4101-04-66 13:10:00 Test Item Value Reference Range Interpretation Comments AT III Func (test code = AT III Func) 118 77-[address] [facility] HospitalFbbtcmtPBWOKHGSBV0479-10-93 13:10:00 Test Item Value Reference Range Interpretation Comments F5 Leiden PCR (test Negative (03/16/19 7:10 code = F5 Leiden PCR) AM) [facility] HospitalUicxqgbROPHRCRQUV5120-78-34 13:10:00 Test Item Value Reference Range Interpretation Comments F5 Leiden Intrp (test code = F5 See note Leiden Intrp) [facility] HospitalZpjslhbCLCDLLFZTB6604-20-77 13:10:00 Test Item Value Reference Range Interpretation Comments dRVV Ratio (test code = dRVV Ratio) 1.[address] HospitalRdcgwdhVYGNHTCJRB6321-02-27 13:10:00 Test Item Value Reference Range Interpretation Comments Plt Neut Test (test code = Plt Neut Negative Test) [facility] HospitalMfmncfsQLJJYAJZSJ2476-27-46 13:10:00 Test Item Value Reference Range Interpretation Comments Hex Phos N (test code Negative (03/16/19 7:10 = Hex Phos N) AM) [facility] HospitalQoxlzjoXOVNWCRUYD1725-87-58 13:10:00 Test Item Value Reference Range Interpretation Comments Lup Interp (test Negative for lupus code = Lup Interp) anticoagulant (prolonged dRVVT, negative hexagonal phospholipid neutralization, and negative Platelet Neutralization procedure). Thrombin Time is normal (15.5 sec) which rules out heparin as interference substance. CPT: [address] [facility] HospitalByxwnenKXLKJTPRVE6815-09-90 13:10:00 Test Item Value Reference Range Interpretation Comments F2 Mutation PCR (test Negative (03/16/19 7:10 code = F2 Mutation PCR) AM) [facility] HospitalLwaynjmXDPITIDFQE4844-97-49 13:10:00 Test Item Value Reference Range Interpretation Comments F2 Mut Interp (test code = F2 Mut See note Interp) [facility] HospitalVkltfemJGAUVAFYIZ6730-46-65 13:10:00 Test Item Value Reference Range Interpretation Comments Protein C Func (test code = Protein C 118 72-147 Func) [facility] HospitalOinysnjRCMJTTOPWZ5473-92-57 13:10:00 Test Item Value Reference Range Interpretation Comments Protein S Func (test code = Protein S 113 54-137 Func) [facility] HospitalBdyhfnyKLHYUIUZKK5844-18-97 13:10:00 Test Item Value Reference Range Interpretation Comments Segs (test code = Segs) 58.7 45.0-75.0 [place] 045030-01-15 13:10:00 Test Item Value Reference Range Interpretation Comments Lymphocytes (test code = Lymphocytes) 30.5 20.0-40.0 [place] 045030-01-15 13:10:00 Test Item Value Reference Range Interpretation Comments Monocytes (test code = Monocytes) 8.0 2.0-12.0 [place] 045030-01-15 13:10:00 Test Item Value Reference Range Interpretation Comments Eosinophils (test code = 2.2 See_Comment [A utomated message] The Eosinophils) system which ge nerated this result tra nsmitted reference range : <=4.0. The reference r carlos was not used to int erpret this result as normal/abnormal . [place] 045030-01-15 13:10:00 Test Item Value Reference Range Interpretation Comments Basophils (test code = 0.6 See_Comment [Aut omated message] The Basophils) system which ge nerated this result tra nsmitted reference range : <=1.0. The reference r carlos was not used to int erpret this result as normal/abnormal . [facility] HospitalPqmhrhoKQBKDYKACV0070-54-74 13:10:00 Test Item Value Reference Range Interpretation Comments Neutrophils # (test code = Neutrophils 5.0 1.5-8.1 #) [place] 045030-01-15 13:10:00 Test Item Value Reference Range Interpretation Comments Lymphocytes # (test code = Lymphocytes 2.6 1.0-5.5 #) [place] 045030-01-15 13:10:00 Test Item Value Reference Range Interpretation Comments Monocytes # (test code 0.7 See_Comment [Aut omated message] The = Monocytes #) system which generated this result tra nsmitted reference range : <=0.8. The reference r carlos was not used to int erpret this result as normal/abnormal . [facility] HospitalVffidzkOMIWIVIVAF3040-86-44 13:10:00 Test Item Value Reference Range Interpretation Comments Eosinophils # (test code 0.2 See_Comment [A utomated message] The = Eosinophils #) system wh h generated this result tra nsmitted reference range : <=0.5. The reference r carlos was not used to int erpret this result as normal/abnormal . [facility]RVYWKFDJDY8083[facility] 13:10:00 Test Item Value Reference Range Interpretation Comments Cystatin C (test code = Cystatin C) 3.70 0.62-1.16 [facility]TqjgsjgWIKJLQLQNB8629-41-48 13:10:00 Test Item Value Reference Range Interpretation Comments Cardiolipin IgA (test code = no gt Cardiolipin IgA) [facility] TylerHxwgmrfMDCTQLUPZS8259-84-42 13:10:00 Test Item Value Reference Range Interpretation Comments Cardiolipin IgG (test code = no gt Cardiolipin IgG) [facility] TylerXbkapbtCGMGJXXULL7415-37-51 13:10:00 Test Item Value Reference Range Interpretation Comments Cardiolipin IgM (test code = 0.8 Cardiolipin IgM) [facility] TylerPazcvmoTXLUDXFBLV1210-45-57 13:10:00 Test Item Value Reference Range Interpretation Comments Homocyst Tot (test code = Homocyst Tot) 16.5 3.7-13.9 [facility] TylerUrkunoyOGQLDTKQFA0245-99-05 13:10:00 Test Item Value Reference Range Interpretation Comments Albumin % (test code = Albumin %) 51.0 55.8-66.1 [facility] TylerIrmqssbVWKMAOSTLW5886-42-69 13:10:00 Test Item Value Reference Range Interpretation Comments Alpha 1 % (test code = Alpha 1 %) 8.6 2.8-4.9 [facility] TylerLuxxabrSLOXVLYNLV0233-46-54 13:10:00 Test Item Value Reference Range Interpretation Comments Alpha 2 % (test code = Alpha 2 %) 14.6 7.0-11.9 [facility] TylerTumbeeyKEJHJGPDGU5317-73-43 13:10:00 Test Item Value Reference Range Interpretation Comments Beta % (test code = Beta %) 12.4 7.8-13.7 [facility] TylerGtwqolaSJYLPUXLQO6872-16-24 13:10:00 Test Item Value Reference Range Interpretation Comments Gamma % (test code = Gamma %) 13.4 11.1-18.7 [place] 123880-01-15 13:10:00 Test Item Value Reference Range Interpretation Comments Albumin (SPE) (test code = Albumin 3.83 3.57-5.55 (SPE)) [facility] TylerLcrroeoIAAAGWOJDL3698-85-84 13:10:00 Test Item Value Reference Range Interpretation Comments Alpha 1 Glob (test code = Alpha 1 Glob) 0.65 0.18-0.41 [facility]VhufmbrDDKHQTITIW0150-93-51 13:10:00 Test Item Value Reference Range Interpretation Comments Alpha 2 Glob (test code = Alpha 2 Glob) 1.10 0.45-1.00 [facility] CenterZorpaakUABNULVLWR4936-99-26 13:10:00 Test Item Value Reference Range Interpretation Comments Beta Glob (test code = Beta Glob) 0.93 0.50-1.15 [facility] CenterXwrlbnjFVXJMHIXFH8884-54-49 13:10:00 Test Item Value Reference Range Interpretation Comments Gamma Glob (test code = Gamma Glob) 1.01 0.71-1.57 [facility] CenterQtqsluhZBBUHKPCMD7930-41-96 13:10:00 Test Item Value Reference Range Interpretation Comments Tot Prot (SPE) (test code = Tot Prot 7.5 6.4-8.4 (SPE)) [facility] TylerIqucuvlJOIKYQQSTO6960-78-84 13:10:00 Test Item Value Reference Range Interpretation [...] and concur with the resident's interpretation. CPT 86448-LW [facility] CenterVotybveGVPUGHORLK8485-32-94 13:10:00 Test Item Value Reference Range Interpretation Comments Rennert Free Light Chains (test code = 110.41 3.30-19.40 Rennert Free Light Chains) [facility] CenterAislcxcFIOVHMAZDM8559-76-66 13:10:00 Test Item Value Reference Range Interpretation Comments Lambda Free Light Chains (test code = 40.85 5.70-26.30 Lambda Free Light Chains) [facility] CenterNuddnncPNCLQOQPHC4216-10-13 13:10:00 Test Item Value Reference Range Interpretation Comments Rennert/Lambda Free Light Chains Ratio 2.70 0.26-1.65 (test code = Rennert/Lambda Free Light Chains Ratio) [facility] CenterXmrbvtqUBSDFSLLXB3618-17-78 13:10:00 Test Item Value Reference Range Interpretation Comments CMV IgG (test code = Reactive *ABN*(03/16/19 CMV IgG) 7:10 AM) [facility]PewrczhFOBAGLLXYY2883-20-73 13:10:00 Test Item Value Reference Range Interpretation Comments EBV VCA IgG (test code = EBV VCA IgG) no [facility]2020-01-15 13:10:00 Test Item Value Reference Range Interpretation Comments HIV Ag/Ab 4th Gen Negative *NA*(03/16/19 (test code = HIV 7:10 AM) Ag/Ab 4th Gen) [facility] TylerMkinggkXIDQJHQBLI1994-03-32 13:10:00 Test Item Value Reference Range Interpretation Comments Hep A Tot (test code Positive *NA*(03/16/19 = Hep A Tot) 7:10 AM) [facility] TylerRiyltwmTTOIJYRKYT3368-95-54 13:10:00 Test Item Value Reference Range Interpretation Comments Hep Bs Ab (test code = Hep Bs Ab) no [facility]2020-01-15 13:10:00 Test Item Value Reference Range Interpretation Comments Hep B Core Ab (test Negative *NA*(03/16/19 code = Hep B Core Ab) 7:10 AM) [facility] TylerIobfkzsAKUTXRQRPF6124-92-16 13:10:00 Test Item Value Reference Range Interpretation Comments Hep Bs Ag (test code Negative *NA*(03/16/19 = Hep Bs Ag) 7:10 AM) [facility] TylerFnfvnisABUNQFRDVH5008-83-07 13:10:00 Test Item Value Reference Range Interpretation Comments Hep C Ab (test code = Negative *NA*(03/16/19 Hep C Ab) 7:10 AM) [facility] TylerClbefnaNYTUIXKINW4025-98-74 13:10:00 Test Item Value Reference Range Interpretation Comments HSV 2 IgG (test code = HSV 2 IgG) no [facility]2020-01-15 13:10:00 Test Item Value Reference Range Interpretation Comments HSV 1 IgG (test code = HSV 1 IgG) no [facility]2020-01-15 13:10:00 Test Item Value Reference Range Interpretation Comments T-Spot.TB (test code Negative (03/16/19 7:10 = T-Spot.TB) AM) [facility] TylerJkngmcuJDDEJMDTUB4756-53-06 13:10:00 Test Item Value Reference Range Interpretation Comments Treponemal Ab (test code Non-Reactive = Treponemal Ab) *NA*(03/16/19 7:10 AM) [facility] CenterXosdxkzECXDVWFWRS3939-56-38 13:10:00 Test Item Value Reference Range Interpretation Comments Varicella IgG (test code = Varicella no gt IgG) [facility] CenterLwzrxloLEWPBGAYXM9576-55-83 13:10:00 Test Item Value Reference Range Interpretation Comments Mumps IgG (test code = Mumps IgG) 5.1 [facility] CenterHjuctysFYRZQYJGYI8310-79-31 13:10:00 Test Item Value Reference Range Interpretation Comments Rubella IgG (test code = Rubella IgG) no gt [facility]enHqmrvycNPJLHKTULN2173-46-54 13:10:00 Test Item Value Reference Range Interpretation Comments Rubeola IgG (test code = Rubeola IgG) 2.0 [facility] McallenEtiljtfESCRZILKVE1499-01-91 13:10:00 Test Item Value Reference Range Interpretation Comments KAREN Ser Pattern A distinct monoclonal (test code = KAREN Ser band is present in the Pattern) IgM izabella with a corresponding faint band in the kappa light chain izabella. The polyclonal gamma globulin background is preserved in all lanes. [facility] CenterNiwnqkbENEBIUZMXK6632-57-21 13:10:00 Test Item Value Reference Range Interpretation [...] and concur with the resident's interpretation. CPT 92404-SD [facility] CenterEsxdkubKUUYFE5501-37-71 13:10:00 Test Item Value Reference Range Interpretation Comments Trig (test code = Trig) 138 [facility]IngglrxNGVWBW3654-42-50 13:10:00 Test Item Value Reference Range Interpretation Comments Chol (test code = Chol) 183 [facility]BcoslkcCVYASR2130-27-14 13:10:00 Test Item Value Reference Range Interpretation Comments HDL (test code = HDL) 40 [facility] HospitalAlcbvxhLDZRRF0149-59-43 13:10:00 Test Item Value Reference Range Interpretation Comments CHD Risk (test code = CHD Risk) 4.58 1 4.00-7.30 [facility] TexasAxbxmjtWLBKYZ0708-61-84 13:10:00 Test Item Value Reference Range Interpretation Comments LDL (Calculated) (test code = LDL 115 (Calculated)) [facility] CenterVvlxfprDPKZWJ4356-22-82 13:10:00 Test Item Value Reference Range Interpretation Comments VLDL (test code = VLDL) 28 1 [facility] CenterPARASITOLOGY - YGVCQEZR6973-34-21 13:10:00 Test Item Value Reference Range Interpretation Comments Strongyloides Antibodies (test code Negative = Strongyloides Antibodies) [facility] CenterPARATHYROID LEVHUGD2932-68-83 13:10:00 Test Item Value Reference Range Interpretation Comments PTH Intact (test code = PTH Intact) 579.6 18.4-80.1 [facility] CenterSPECIAL GWQTENBGG8267-15-25 13:10:00 Test Item Value Reference Range Interpretation Comments Nicotine Lvl (test code = None Detected Nicotine Lvl) [facility] PLRIFYWDS1392-06-24 13:10:00 Test Item Value Reference Range Interpretation Comments Cotinine Lvl (test code = None Detected Cotinine Lvl) [facility] TVFFUINIS8783-16-73 13:10:00 Test Item Value Reference Range Interpretation Comments Hgb A1C (test code = Hgb A1C) 6.1 [facility] UDZSXDLTM9170-73-90 13:10:00 Test Item Value Reference Range Interpretation Comments PSA (test code = PSA) 1.34 See_Comment [Auto mated message] The system which ge nerated this result transmit nicko reference range : <=4.00. The reference r carlos was not used to interpr et this result as adebayo l/abnormal. [facility] [id number] 13:10:00 Test Item Value Reference Range Interpretation Comments UA WBC (test code = 1 See_Comment [Automa nicko message] The UA WBC) system which ge nerated this result transmit nicko reference range : <=5. The reference range was not used to interpr et this result as adebayo l/abnormal. [facility] [id number] 13:10:00 Test Item Value Reference Range Interpretation Comments UA RBC (test code = 1 See_Comment [Automa nicko message] The UA RBC) system which ge nerated this result transmit nicko reference range : <=2. The reference range was not used to interpr et this result as adebayo l/abnormal. [facility] [id number] 13:10:00 Test Item Value Reference Range Interpretation Comments UA Color (test code = Yellow *NA*(03/16/19 UA Color) 7:10 AM) [facility] AND [id number] 13:10:00 Test Item Value Reference Range Interpretation Comments UA Turbidity (test code = Clear (03/16/19 7:10 UA Turbidity) AM) [facility] AND [id number] 13:10:00 Test Item Value Reference Range Interpretation Comments UA Spec Grav (test code = UA Spec 1.010 1 Grav) [facility] AND [id number] 13:10:00 Test Item Value Reference Range Interpretation Comments UA pH (test code = UA pH) 6.0 1 5.0-8.0 [facility] AND [id number] 13:10:00 Test Item Value Reference Range Interpretation Comments UA Protein (test code = UA Protein) 100 mg/dL [facility] AND [id number] 13:10:00 Test Item Value Reference Range Interpretation Comments UA Glucose (test code = UA Glucose) 100 mg/dL [facility] AND [id number] 13:10:00 Test Item Value Reference Range Interpretation Comments UA Ketones (test code Negative *NA*(03/16/19 = UA Ketones) 7:10 AM) [facility] AND [id number] 13:10:00 Test Item Value Reference Range Interpretation Comments UA Bili (test code = Negative *NA*(03/16/19 UA Bili) 7:10 AM) [facility] AND [id number] 13:10:00 Test Item Value Reference Range Interpretation Comments UA Blood (test code = Trace *ABN*(03/16/19 UA Blood) 7:10 AM) [facility] AND [id number] 13:10:00 Test Item Value Reference Range Interpretation Comments UA Urobilinogen (test code = UA 0.2 0.1-1.0 Urobilinogen) [facility] AND [id number] 13:10:00 Test Item Value Reference Range Interpretation Comments UA Nitrite (test code Negative (03/16/19 7:10 = UA Nitrite) AM) [facility] AND [id number] 13:10:00 Test Item Value Reference Range Interpretation Comments UA Leuk Est (test Negative (03/16/19 7:10 code = UA Leuk Est) AM) [facility] AND [id number] 13:10:00 Test Item Value Reference Range Interpretation Comments UA Sq Epi (test code = None Seen (03/16/19 7:10 UA Sq Epi) AM) [facility] [id number] 13:10:00 Test Item Value Reference Range Interpretation Comments U Creatinine (test code = U Creatinine) 74.20 [facility] [id number] 13:10:00 Test Item Value Reference Range Interpretation Comments U Alb (test code = U Alb) 892.0 [facility] JBFR1406-04-32 13:10:00 Test Item Value Reference Range Interpretation Comments U Alb/Crea (test code = U Alb/Crea) 1202.2 [facility] [id number] 13:10:00 Test Item Value Reference Range Interpretation Comments U Creatinine (test code = U Creatinine) 74.20 [facility] [id number] 13:10:00 Test Item Value Reference Range Interpretation Comments U Protein (test code = U Protein) 149.5 [facility] [id number] 13:10:00 Test Item Value Reference Range Interpretation Comments U Prot/Creat (test code = U 2.01 1 Prot/Creat) [facility] [id number] 13:10:00 Test Item Value Reference Range Interpretation Comments U Creatinine (test code = U Creatinine) 74.20 [facility] [id number] 13:10:00 Test Item Value Reference Range Interpretation Comments U Alb (test code = U Alb) 892.0 [facility] [id number] 13:10:00 Test Item Value Reference Range Interpretation Comments U Alb/Crea (test code = U Alb/Crea) 1202.2 [facility] - [id number] 13:10:00 Test Item Value Reference Range Interpretation Comments T cruzi (Chagas) Ab (test code = Non Reactive T cruzi (Chagas) Ab) [facility] - [id number] 13:10:00 Test Item Value Reference Range Interpretation Comments W Nile Ab IgG (test code = W Nile Ab Negative IgG) [facility] CenterVIR[facility] - [id number] 13:10:00 Test Item Value Reference Range Interpretation Comments W Nile Ab IgM (test code = W Nile Ab Negative IgM) [facility] [id number] 13:10:00 Test Item Value Reference Range Interpretation Comments Ferritin Lvl (test code = Ferritin Lvl) 237 22-275 [facility]2020-01-15 13:10:00 Test Item Value Reference Range Interpretation Comments Iron (test code = Iron) 46 45-160 [facility]2020-01-15 13:10:00 Test Item Value Reference Range Interpretation Comments TIBC (test code = TIBC) 300 228-428 [facility]2020-01-15 13:10:00 Test Item Value Reference Range Interpretation Comments UIBC (test code = UIBC) 254 110-370 [facility]2020-01-15 13:10:00 Test Item Value Reference Range Interpretation Comments % Satur Fe (test code = % Satur Fe) 15 12-57 [facility]2020-01-15 13:10:00 Test Item Value Reference Range Interpretation Comments Glucose Lvl (test code = Glucose Lvl) 74 70-99 [facility]2020-01-15 13:10:00 Test Item Value Reference Range Interpretation Comments BUN (test code = BUN) 43 7-22 [facility]2020-01-15 13:10:00 Test Item Value Reference Range Interpretation Comments Creatinine Lvl (test code = Creatinine 4.40 0.50-1.40 Lvl) [facility]2020-01-15 13:10:00 Test Item Value Reference Range Interpretation Comments Sodium Lvl (test code = Sodium Lvl) 143 135-145 [facility]2020-01-15 13:10:00 Test Item Value Reference Range Interpretation Comments Potassium Lvl (test code = Potassium 3.9 3.5-5.1 Lvl) [facility]2020-01-15 13:10:00 Test Item Value Reference Range Interpretation Comments Chloride Lvl (test code = Chloride Lvl) 109 95-109 [facility]2020-01-15 13:10:00 Test Item Value Reference Range Interpretation Comments CO2 (test code = CO2) 26 24-32 [facility]2020-01-15 13:10:00 Test Item Value Reference Range Interpretation Comments Calcium Lvl (test code = Calcium Lvl) 8.5 8.5-10.5 [facility] [id number] 13:10:00 Test Item Value Reference Range Interpretation Comments Total Protein (test code = Total 7.5 6.4-8.4 Protein) [facility] McallenGrayBugFORMERLY [id number] 13:10:00 Test Item Value Reference Range Interpretation Comments Albumin Lvl (test code = Albumin Lvl) 3.4 3.5-5.0 [facility] [id number] 13:10:00 Test Item Value Reference Range Interpretation Comments ALT (test code = ALT) 16 See_Comment [Auto mated message] The system which ge nerated this result transmit nicko reference range : <=65. The reference range was not used to interpr et this result as adebayo l/abnormal. [facility] [id number] 13:10:00 Test Item Value Reference Range Interpretation Comments AST (test code = AST) 11 See_Comment [Auto mated message] The system which ge nerated this result transmit nicko reference range : <=37. The reference range was not used to interpr et this result as adebayo l/abnormal. [facility] [id number] 13:10:00 Test Item Value Reference Range Interpretation Comments Alk Phos (test code = Alk Phos) 68 39-136 [facility] [id number] 13:10:00 Test Item Value Reference Range Interpretation Comments Bili Total (test code = Bili Total) 0.3 0.2-1.3 [facility] [id number] 13:10:00 Test Item Value Reference Range Interpretation Comments AGAP (test code = AGAP) 11.9 10.0-20.0 [facility] [employer] [id number] 13:10:00 Test Item Value Reference Range Interpretation Comments B/C Ratio (test code = B/C Ratio) 10 1 6-25 [facility] [id number] 13:10:00 Test Item Value Reference Range Interpretation Comments Globulin (test code = Globulin) 4.1 2.7-4.2 [facility] [id number] 13:10:00 Test Item Value Reference Range Interpretation Comments A/G Ratio (test code = A/G Ratio) 0.8 1 0.7-1.6 [facility]2020-01-15 13:10:00 Test Item Value Reference Range Interpretation Comments eGFR (test code = eGFR) 13 [facility]2020-01-15 13:10:00 Test Item Value Reference Range Interpretation Comments Magnesium Lvl (test code = Magnesium 1.2 1.8-2.4 Lvl) [facility]2020-01-15 13:10:00 Test Item Value Reference Range Interpretation Comments Phosphorus (test code = Phosphorus) 3.9 2.5-4.5 [facility]2020-01-15 13:10:00 Test Item Value Reference Range Interpretation Comments Uric Acid (test code = Uric Acid) 7.1 3.8-8.0 [facility]2020-01-15 13:10:00 Test Item Value Reference Range Interpretation Comments Vitamin D, 25-OH, Total (test code = 42.0 30.0-100.0 Vitamin D, 25-OH, Total) [facility]2020-01-15 13:10:00 Test Item Value Reference Range Interpretation Comments LDH (test code = LDH) 164 98-192 [facility] CenterAvaSure Holdings [id number] 13:10:00 Test Item Value Reference Range Interpretation Comments Creatinine Lvl (test code = Creatinine 4.39 0.50-1.40 Lvl) [facility]2020-01-15 13:10:00 Test Item Value Reference Range Interpretation Comments eGFR (test code = eGFR) 13 [facility] CenterNetsmart Technologies [id number] 13:10:00 Test Item Value Reference Range Interpretation Comments Phencyclidine Scr (test code = Negative Phencyclidine Scr) [facility] [id number] 13:10:00 Test Item Value Reference Range Interpretation Comments Kaitlin Scr (test code = Kaitlin Scr) Negative [facility] [id number] 13:10:00 Test Item Value Reference Range Interpretation Comments Cannab Scr (test code = Cannab Scr) Negative [facility] [id number] 13:10:00 Test Item Value Reference Range Interpretation Comments Methadone Scr (test code = Methadone Negative Scr) [facility] [id number] 13:10:00 Test Item Value Reference Range Interpretation Comments Cocaine Scr (test code = Cocaine Negative Scr) [facility] [id number] 13:10:00 Test Item Value Reference Range Interpretation Comments Benzodiaz Scr (test code = Benzodiaz Negative Scr) [facility] [id number] 13:10:00 Test Item Value Reference Range Interpretation Comments Amph Scr (test code = Amph Scr) Negative [facility] [id number] 13:10:00 Test Item Value Reference Range Interpretation Comments Opiate Scr (test code = Opiate Scr) Positive [facility] [id number] 13:10:00 Test Item Value Reference Range Interpretation Comments 6-Acetylmor Scr (test code = Negative 6-Acetylmor Scr) [facility] [id number] 13:10:00 Test Item Value Reference Range Interpretation Comments Opiate Qnt (test code = Opiate Qnt) Positive [facility] CenterCyflrtgKYBTETWETQ4778-38-14 13:10:00 Test Item Value Reference Range Interpretation Comments PT (test code = PT) 12.8 s 12.0-14.[address] [facility] HospitalZhjdovcPPFEYRNMFT5629-76-89 13:10:00 Test Item Value Reference Range Interpretation Comments INR (test code = INR) 0.96 1 0.85-1.[address] [facility] HospitalDkxnbepNMCQYUTJKM6356-21-83 13:10:00 Test Item Value Reference Range Interpretation Comments PTT (test code = PTT) 33.5 s 22.9-35.8 [facility]UktgwkcTFFJNPVYAE5194-60-22 13:10:00 Test Item Value Reference Range Interpretation Comments WBC (test code = WBC) 8.5 3.7-10.4 [facility] RegionIcsisslEOWQFKKXJY1600-91-15 13:10:00 Test Item Value Reference Range Interpretation Comments RBC (test code = RBC) 4.31 4.70-6.10 [facility] RegionMlknrkiFJKPOQQEGH0183-47-23 13:10:00 Test Item Value Reference Range Interpretation Comments Hgb (test code = Hgb) 12.6 14.0-18.0 [facility] RegionBpjijrhLNXPXCSFLG2909-72-38 13:10:00 Test Item Value Reference Range Interpretation Comments Hct (test code = Hct) 39.5 42.0-54.0 [facility] RegionCmhuflvQWAWPQGRXG9506-80-72 13:10:00 Test Item Value Reference Range Interpretation Comments MCV (test code = MCV) 91.6 80.0-94.[address] [facility] HospitalTwytfkmBBSVSQMJIS8709-83-72 13:10:00 Test Item Value Reference Range Interpretation Comments MCH (test code = MCH) 29.3 pg 27.0-31.[address] [facility] HospitalNdlcfstURZOUJDDVB7305-28-68 13:10:00 Test Item Value Reference Range Interpretation Comments MCHC (test code = MCHC) 32.0 32.0-36.[address] [facility] HospitalQmlqwgoLTYZDCLYDT3580-66-41 13:10:00 Test Item Value Reference Range Interpretation Comments RDW (test code = RDW) 15.5 11.5-14.[address] [facility] HospitalDyisrkuQRYHPXTBMP9907-58-56 13:10:00 Test Item Value Reference Range Interpretation Comments Platelet (test code = Platelet) 215 133-[address] [facility] HospitalLogcaziTRCBJPYTEO0624-67-55 13:10:00 Test Item Value Reference Range Interpretation Comments MPV (test code = MPV) 9.0 7.4-10.[address] [facility] HospitalIlbnnokXMOHRSNHIA4110-23-49 13:10:00 Test Item Value Reference Range Interpretation Comments AT III Func (test code = AT III Func) 118 77-[address] [facility] HospitalQxtyhlnQOYFPLEHSI0314-57-09 13:10:00 Test Item Value Reference Range Interpretation Comments F5 Leiden PCR (test Negative (03/16/19 7:10 code = F5 Leiden PCR) AM) [facility] HospitalEniubfhPNRGSNKMGK9720-99-29 13:10:00 Test Item Value Reference Range Interpretation Comments F5 Leiden Intrp (test code = F5 See note Leiden Intrp) [facility] HospitalEizgsesIUCPBSDSZX8007-12-15 13:10:00 Test Item Value Reference Range Interpretation Comments dRVV Ratio (test code = dRVV Ratio) 1.[address] [facility] HospitalSinsinhVZPZSNQYBE9719-30-38 13:10:00 Test Item Value Reference Range Interpretation Comments Plt Neut Test (test code = Plt Neut Negative Test) [facility] HospitalMibhphpALFPMUZGLT4076-02-74 13:10:00 Test Item Value Reference Range Interpretation Comments Hex Phos N (test code Negative (03/16/19 7:10 = Hex Phos N) AM) [facility] HospitalIkbojfoKFQYICHFGK3699-14-68 13:10:00 Test Item Value Reference Range Interpretation Comments Lup Interp (test Negative for lupus code = Lup Interp) anticoagulant (prolonged dRVVT, negative hexagonal phospholipid neutralization, and negative Platelet Neutralization procedure). Thrombin Time is normal (15.5 sec) which rules out heparin as interference substance. CPT: [address] [facility] HospitalIxxabuwRFAVWSZCZF3880-99-86 13:10:00 Test Item Value Reference Range Interpretation Comments F2 Mutation PCR (test Negative (03/16/19 7:10 code = F2 Mutation PCR) AM) [place] 045030-01-15 13:10:00 Test Item Value Reference Range Interpretation Comments F2 Mut Interp (test code = F2 Mut See note Interp) [facility] HospitalYxtsgnuZMSWAIQXBB4098-81-35 13:10:00 Test Item Value Reference Range Interpretation Comments Protein C Func (test code = Protein C 118 72-147 Func) [facility] HospitalXxokbwjYYQPDXXLKL6150-43-43 13:10:00 Test Item Value Reference Range Interpretation Comments Protein S Func (test code = Protein S 113 54-137 Func) [facility] HospitalKuafwolKVKAOCOJCA4514-61-76 13:10:00 Test Item Value Reference Range Interpretation Comments Segs (test code = Segs) 58.7 45.0-75.0 [place] 045030-01-15 13:10:00 Test Item Value Reference Range Interpretation Comments Lymphocytes (test code = Lymphocytes) 30.5 20.0-40.0 [place] 045030-01-15 13:10:00 Test Item Value Reference Range Interpretation Comments Monocytes (test code = Monocytes) 8.0 2.0-12.0 [place] 045030-01-15 13:10:00 Test Item Value Reference Range Interpretation Comments Eosinophils (test code = 2.2 See_Comment [A utomated message] The Eosinophils) system which ge nerated this result tra nsmitted reference range : <=4.0. The reference r carlos was not used to int erpret this result as normal/abnormal . [place] 045030-01-15 13:10:00 Test Item Value Reference Range Interpretation Comments Basophils (test code = 0.6 See_Comment [Aut omated message] The Basophils) system which ge nerated this result tra nsmitted reference range : <=1.0. The reference r carlos was not used to int erpret this result as normal/abnormal . [facility] HospitalYdihggyRBJODTDQQQ3229-63-98 13:10:00 Test Item Value Reference Range Interpretation Comments Neutrophils # (test code = Neutrophils 5.0 1.5-8.1 #) [facility] HospitalHlvirjeDFZAXUOWAE8604-48-58 13:10:00 Test Item Value Reference Range Interpretation Comments Lymphocytes # (test code = Lymphocytes 2.6 1.0-5.5 #) [facility] HospitalTurqixiMQUDYMIJKS9203-41-86 13:10:00 Test Item Value Reference Range Interpretation Comments Monocytes # (test code 0.7 See_Comment [Aut omated message] The = Monocytes #) system which generated this result tra nsmitted reference range : <=0.8. The reference r carlos was not used to int erpret this result as normal/abnormal . [facility] HospitalAabibfxVQMFPLXJEL6733-33-67 13:10:00 Test Item Value Reference Range Interpretation Comments Eosinophils # (test code 0.2 See_Comment [A utomated message] The = Eosinophils #) system whic h generated this result tra nsmitted reference range : <=0.5. The reference r carlos was not used to int erpret this result as normal/abnormal . [facility]xycljsIYAEJYPMYU3952-93-28 13:10:00 Test Item Value Reference Range Interpretation Comments Cystatin C (test code = Cystatin C) 3.70 0.62-1.16 [place] 123880-01-15 13:10:00 Test Item Value Reference Range Interpretation Comments Cardiolipin IgA (test code = no gt Cardiolipin IgA) [place] 123880-01-15 13:10:00 Test Item Value Reference Range Interpretation Comments Cardiolipin IgG (test code = no gt Cardiolipin IgG) [place] 123880-01-15 13:10:00 Test Item Value Reference Range Interpretation Comments Cardiolipin IgM (test code = 0.8 Cardiolipin IgM) [place] [address]-01-15 13:10:00 Test Item Value Reference Range Interpretation Comments Homocyst Tot (test code = Homocyst Tot) 16.5 3.7-13.9 [place] 123880-01-15 13:10:00 Test Item Value Reference Range Interpretation Comments Albumin % (test code = Albumin %) 51.0 55.8-66.1 [place] [address]-01-15 13:10:00 Test Item Value Reference Range Interpretation Comments Alpha 1 % (test code = Alpha 1 %) 8.6 2.8-4.9 [facility] TylerYlrjmixRYABNGPTSA3207-08-63 13:10:00 Test Item Value Reference Range Interpretation Comments Alpha 2 % (test code = Alpha 2 %) 14.6 7.0-11.9 [facility] TylerBkbgmigFNIOTAJQZV2727-75-78 13:10:00 Test Item Value Reference Range Interpretation Comments Beta % (test code = Beta %) 12.4 7.8-13.7 [facility] CenterCqsfgknQKTDPGFADN6251-69-89 13:10:00 Test Item Value Reference Range Interpretation Comments Gamma % (test code = Gamma %) 13.4 11.1-18.7 [facility] CenterNgvzervSSFUMIONCI3362-34-19 13:10:00 Test Item Value Reference Range Interpretation Comments Albumin (SPE) (test code = Albumin 3.83 3.57-5.55 (SPE)) [facility] TylerZpkbpveHGMQNNZKEC9673-69-19 13:10:00 Test Item Value Reference Range Interpretation Comments Alpha 1 Glob (test code = Alpha 1 Glob) 0.65 0.18-0.41 [facility] CenterYkidudwVRJIUGFJOV2870-99-21 13:10:00 Test Item Value Reference Range Interpretation Comments Alpha 2 Glob (test code = Alpha 2 Glob) 1.10 0.45-1.00 [facility] TylerJhkivszABDQHPAUJN9385-98-99 13:10:00 Test Item Value Reference Range Interpretation Comments Beta Glob (test code = Beta Glob) 0.93 0.50-1.15 [facility] CenterTgxryzlWRIARTDSJB9796-73-97 13:10:00 Test Item Value Reference Range Interpretation Comments Gamma Glob (test code = Gamma Glob) 1.01 0.71-1.57 [facility] CenterAiuuajsNRWNNHDWOI4676-39-57 13:10:00 Test Item Value Reference Range Interpretation Comments Tot Prot (SPE) (test code = Tot Prot 7.5 6.4-8.4 (SPE)) [facility] TylerZrqcfwvUFZNVXDMBB3592-44-68 13:10:00 Test Item Value Reference Range Interpretation [...] and concur with the resident's interpretation. CPT 63626-FS [facility] CenterPebgnztGDQXWZPHUM5528-34-65 13:10:00 Test Item Value Reference Range Interpretation Comments Rennert Free Light Chains (test code = 110.41 3.30-19.40 Rennert Free Light Chains) [facility] CenterAlmcqklEUXVZIZEDB5013-12-49 13:10:00 Test Item Value Reference Range Interpretation Comments Lambda Free Light Chains (test code = 40.85 5.70-26.30 Lambda Free Light Chains) [facility] TylerZfeunyvMEWGCOJCAC8035-63-58 13:10:00 Test Item Value Reference Range Interpretation Comments Rennert/Lambda Free Light Chains Ratio 2.70 0.26-1.65 (test code = Rennert/Lambda Free Light Chains Ratio) [facility] TylerNgsxixqSSBGAVJPDX9013-42-94 13:10:00 Test Item Value Reference Range Interpretation Comments CMV IgG (test code = Reactive *ABN*(03/16/19 CMV IgG) 7:10 AM) [facility] TylerPmjvxsqUUPWWWGRFN1235-80-51 13:10:00 Test Item Value Reference Range Interpretation Comments EBV VCA IgG (test code = EBV VCA IgG) no gt [facility] TylerWmykccySLUFJZYVUH0358-44-92 13:10:00 Test Item Value Reference Range Interpretation Comments HIV Ag/Ab 4th Gen Negative *NA*(03/16/19 (test code = HIV 7:10 AM) Ag/Ab 4th Gen) [facility] TylerDimxstwKZHNPUKVOG0897-94-32 13:10:00 Test Item Value Reference Range Interpretation Comments Hep A Tot (test code Positive *NA*(03/16/19 = Hep A Tot) 7:10 AM) [facility] TylerIbjlxqgTEZGKNZNHR6666-03-28 13:10:00 Test Item Value Reference Range Interpretation Comments Hep Bs Ab (test code = Hep Bs Ab) no [facility]2020-01-15 13:10:00 Test Item Value Reference Range Interpretation Comments Hep B Core Ab (test Negative *NA*(03/16/19 code = Hep B Core Ab) 7:10 AM) [facility] TylerYjeunmuFRRAKAVORX0640-22-06 13:10:00 Test Item Value Reference Range Interpretation Comments Hep Bs Ag (test code Negative *NA*(03/16/19 = Hep Bs Ag) 7:10 AM) [facility] TylerBjtfmfpYTSISJEKSO5718-09-91 13:10:00 Test Item Value Reference Range Interpretation Comments Hep C Ab (test code = Negative *NA*(03/16/19 Hep C Ab) 7:10 AM) [facility] TylerYwdoyecJOSJGGPYXA8052-00-33 13:10:00 Test Item Value Reference Range Interpretation Comments HSV 2 IgG (test code = HSV 2 IgG) no gt [facility] CenterZpobmtoMVEEDUJJFH2107-38-50 13:10:00 Test Item Value Reference Range Interpretation Comments HSV 1 IgG (test code = HSV 1 IgG) no gt [facility] CenterHrejpctWCFNIPWLZL5741-26-76 13:10:00 Test Item Value Reference Range Interpretation Comments T-Spot.TB (test code Negative (03/16/19 7:10 = T-Spot.TB) AM) [facility] TylerCwxuonuEWLLCHOTTA3655-85-49 13:10:00 Test Item Value Reference Range Interpretation Comments Treponemal Ab (test code Non-Reactive = Treponemal Ab) *NA*(03/16/19 7:10 AM) [facility] TylerHynefftWUTLATXKXH5855-18-29 13:10:00 Test Item Value Reference Range Interpretation Comments Varicella IgG (test code = Varicella no gt IgG) [facility] TylerLiomitqIEOUWIBAWR7426-62-13 13:10:00 Test Item Value Reference Range Interpretation Comments Mumps IgG (test code = Mumps IgG) 5.1 [facility] CenterAlzfgfpRTCFKUOOJA3705-78-00 13:10:00 Test Item Value Reference Range Interpretation Comments Rubella IgG (test code = Rubella IgG) no gt [facility] CenterStkjlqzOEOUWLGZTS3615-14-04 13:10:00 Test Item Value Reference Range Interpretation Comments Rubeola IgG (test code = Rubeola IgG) 2.0 [facility] CenterCavjphsPFNVXFIFXN4271-65-75 13:10:00 Test Item Value Reference Range Interpretation Comments KAREN Ser Pattern A distinct monoclonal (test code = KAREN Ser band is present in the Pattern) IgM izabella with a corresponding faint band in the kappa light chain izabella. The polyclonal gamma globulin background is preserved in all lanes. [facility] CenterScnqiamSQGJOMFRGC8469-14-94 13:10:00 Test Item Value Reference Range Interpretation [...] and concur with the resident's interpretation. CPT 06828-IG [facility] CenterZvenpotICWFOU3019-16-40 13:10:00 Test Item Value Reference Range Interpretation Comments Trig (test code = Trig) 138 [facility]enDmpbfdgAMJWKP4478-89-89 13:10:00 Test Item Value Reference Range Interpretation Comments Chol (test code = Chol) 183 [facility] CenterFrvczmuBRIIIT3052-44-94 13:10:00 Test Item Value Reference Range Interpretation Comments HDL (test code = HDL) 40 [facility] CenterAieejbpEPKNXC0775-12-50 13:10:00 Test Item Value Reference Range Interpretation Comments CHD Risk (test code = CHD Risk) 4.58 1 4.00-7.30 [facility] CenterHsofmglIQEJCO8011-70-68 13:10:00 Test Item Value Reference Range Interpretation Comments LDL (Calculated) (test code = LDL 115 (Calculated)) [facility] CenterHsijwumRVDCXA7574-75-59 13:10:00 Test Item Value Reference Range Interpretation Comments VLDL (test code = VLDL) 28 1 [facility] CenterPARASITOLOGY - NBZOUMJU5772-38-26 13:10:00 Test Item Value Reference Range Interpretation Comments Strongyloides Antibodies (test code Negative = Strongyloides Antibodies) [facility] CenterPARATHYROID [id number] 13:10:00 Test Item Value Reference Range Interpretation Comments PTH Intact (test code = PTH Intact) 579.6 18.4-80.1 [facility] CenterSPECIAL PVZSLQZIA3837-39-22 13:10:00 Test Item Value Reference Range Interpretation Comments Nicotine Lvl (test code = None Detected Nicotine Lvl) [facility] UPBGYQAKB3225-32-50 13:10:00 Test Item Value Reference Range Interpretation Comments Cotinine Lvl (test code = None Detected Cotinine Lvl) [facility] JMIBCYVUY2795-09-63 13:10:00 Test Item Value Reference Range Interpretation Comments Hgb A1C (test code = Hgb A1C) 6.1 [facility] SLOGALCXG8397-52-57 13:10:00 Test Item Value Reference Range Interpretation Comments PSA (test code = PSA) 1.34 See_Comment [Auto mated message] The system which ge nerated this result transmit nicko reference range : <=4.00. The reference r carlos was not used to interpr et this result as adebayo l/abnormal. [facility] [id number] 13:10:00 Test Item Value Reference Range Interpretation Comments UA WBC (test code = 1 See_Comment [Automa nicko message] The UA WBC) system which ge nerated this result transmit nicko reference range : <=5. The reference range was not used to interpr et this result as adebayo l/abnormal. [facility] [id number] 13:10:00 Test Item Value Reference Range Interpretation Comments UA RBC (test code = 1 See_Comment [Automa nicko message] The UA RBC) system which ge nerated this result transmit nicko reference range : <=2. The reference range was not used to interpr et this result as adebayo l/abnormal. [facility] [id number] 13:10:00 Test Item Value Reference Range Interpretation Comments UA Color (test code = Yellow *NA*(03/16/19 UA Color) 7:10 AM) [facility] AND [id number] 13:10:00 Test Item Value Reference Range Interpretation Comments UA Turbidity (test code = Clear (03/16/19 7:10 UA Turbidity) AM) [facility] AND PNCQO1801-68-22 13:10:00 Test Item Value Reference Range Interpretation Comments UA Spec Grav (test code = UA Spec 1.010 1 Grav) [facility] AND [id number] 13:10:00 Test Item Value Reference Range Interpretation Comments UA pH (test code = UA pH) 6.0 1 5.0-8.0 [facility] AND [id number] 13:10:00 Test Item Value Reference Range Interpretation Comments UA Protein (test code = UA Protein) 100 mg/dL [facility] AND [id number] 13:10:00 Test Item Value Reference Range Interpretation Comments UA Glucose (test code = UA Glucose) 100 mg/dL [facility] AND QAWRW2548-28-35 13:10:00 Test Item Value Reference Range Interpretation Comments UA Ketones (test code Negative *NA*(03/16/19 = UA Ketones) 7:10 AM) [facility] [id number] 13:10:00 Test Item Value Reference Range Interpretation Comments UA Bili (test code = Negative *NA*(03/16/19 UA Bili) 7:10 AM) [facility] [id number] 13:10:00 Test Item Value Reference Range Interpretation Comments UA Blood (test code = Trace *ABN*(03/16/19 UA Blood) 7:10 AM) [facility] [id number] 13:10:00 Test Item Value Reference Range Interpretation Comments UA Urobilinogen (test code = UA 0.2 0.1-1.0 Urobilinogen) [facility] [id number] 13:10:00 Test Item Value Reference Range Interpretation Comments UA Nitrite (test code Negative (03/16/19 7:10 = UA Nitrite) AM) [facility] [id number] 13:10:00 Test Item Value Reference Range Interpretation Comments UA Leuk Est (test Negative (03/16/19 7:10 code = UA Leuk Est) AM) [facility] AND [id number] 13:10:00 Test Item Value Reference Range Interpretation Comments UA Sq Epi (test code = None Seen (03/16/19 7:10 UA Sq Epi) AM) [facility] [id number] 13:10:00 Test Item Value Reference Range Interpretation Comments U Creatinine (test code = U Creatinine) 74.20 [facility] [id number] 13:10:00 Test Item Value Reference Range Interpretation Comments U Alb (test code = U Alb) 892.0 [facility] [id number] 13:10:00 Test Item Value Reference Range Interpretation Comments U Alb/Crea (test code = U Alb/Crea) 1202.2 [facility] [id number] 13:10:00 Test Item Value Reference Range Interpretation Comments U Creatinine (test code = U Creatinine) 74.20 [facility] [id number] 13:10:00 Test Item Value Reference Range Interpretation Comments U Protein (test code = U Protein) 149.5 [facility]2020-01-15 13:10:00 Test Item Value Reference Range Interpretation Comments U Prot/Creat (test code = U 2.01 1 Prot/Creat) [facility]2020-01-15 13:10:00 Test Item Value Reference Range Interpretation Comments U Creatinine (test code = U Creatinine) 74.20 [facility]2020-01-15 13:10:00 Test Item Value Reference Range Interpretation Comments U Alb (test code = U Alb) 892.0 [facility]2020-01-15 13:10:00 Test Item Value Reference Range Interpretation Comments U Alb/Crea (test code = U Alb/Crea) 1202.2 [facility] [id number] 13:10:00 Test Item Value Reference Range Interpretation Comments T cruzi (Chagas) Ab (test code = Non Reactive T cruzi (Chagas) Ab) [facility]2020-01-15 13:10:00 Test Item Value Reference Range Interpretation Comments W Nile Ab IgG (test code = W Nile Ab Negative IgG) [facility] KNHXQMGU1446-49-26 13:10:00 Test Item Value Reference Range Interpretation Comments W Nile Ab IgM (test code = W Nile Ab Negative IgM) [facility]JkxyxyqHEIICWPCHJ2485-76-57 16:49:00 Test Item Value Reference Range Interpretation Comments 24Hr UPE (test code = 24Hr UPE) 1444 [facility] TylerVrjhjrmVWENJKEVSZ1100-71-57 16:49:00 Test Item Value Reference Range Interpretation [...] and concur with the resident's interpretation. CPT: 78830-BH [facility] CenterUnygbyxXSYWTDXGJV0308-10-05 16:49:00 Test Item Value Reference Range Interpretation Comments 24 UPE Tot Vol (test code = 24 UPE Tot 2725 Vol) [facility] TylerTcilpznUCJCXLYTDE3489-97-02 16:49:00 Test Item Value Reference Range Interpretation Comments 24 UPE Tot Prot (test code = 24 UPE Tot 53 Prot) [facility] TylerOtzsyxjWUYXUCDHPR8327-87-58 16:49:00 Test Item Value Reference Range Interpretation Comments 24Hr UPE (test code = 24Hr UPE) 1444 [facility] TylerSkencehUCSULLSBIB6097-00-04 16:49:00 Test Item Value Reference Range Interpretation [...] and concur with the resident's interpretation. CPT: 03322-UR [facility] TylerQjgxbzbGSYMUJUKTL8101-00-22 16:49:00 Test Item Value Reference Range Interpretation Comments 24 UPE Tot Vol (test code = 24 UPE Tot 2725 Vol) [facility] TylerKshceleQOBJVGLWQG9929-42-52 16:49:00 Test Item Value Reference Range Interpretation Comments 24 UPE Tot Prot (test code = 24 UPE Tot 53 Prot) [facility]HSYSBVBNFB9085[facility] 16:49:00 Test Item Value Reference Range Interpretation Comments 24Hr UPE (test code = 24Hr UPE) 1444 [facility]BwupjllAAILAELQXF1277-63-80 16:49:00 Test Item Value Reference Range Interpretation [...] and concur with the resident's interpretation. CPT: 30031-EC [facility]YaksmjsABODVHXTXP1666-42-23 16:49:00 Test Item Value Reference Range Interpretation Comments 24 UPE Tot Vol (test code = 24 UPE Tot 2725 Vol) [facility]RlwbtgiGMJWBVZBMO2754-54-60 16:49:00 Test Item Value Reference Range Interpretation Comments 24 UPE Tot Prot (test code = 24 UPE Tot 53 Prot) [facility]SxmocqxFSASNRBDIE6899-12-07 16:49:00 Test Item Value Reference Range Interpretation Comments 24Hr UPE (test code = 24Hr UPE) 1444 [facility]WjyvtadCEEJQGCCRQ2301-18-61 16:49:00 Test Item Value Reference Range Interpretation [...] and concur with the resident's interpretation. CPT: 02062-WH [facility]AwzlpkoGVNQJXIBXO2693-63-24 16:49:00 Test Item Value Reference Range Interpretation Comments 24 UPE Tot Vol (test code = 24 UPE Tot 2725 Vol) [facility]NapnbfcZOZCZWXAQR4961-04-79 16:49:00 Test Item Value Reference Range Interpretation Comments 24 UPE Tot Prot (test code = 24 UPE Tot 53 Prot) [facility] FGOGN6966-21-92 17:46:00 Test Item Value Reference Range Interpretation Comments LDH (test code = LDH) 150 98-192 [facility]CHE[facility] XJXCV9674-84-78 17:46:00 Test Item Value Reference Range Interpretation Comments I-7-Ywwhtvsih (test code = 9.6 1.0-2.3 J-3-Uhhryxtvg) [facility] CenterNlccbklMDHZYFOWWQ3089-56-61 17:46:00 Test Item Value Reference Range Interpretation Comments MCHC (test code = MCHC) 32.9 32.0-36.0 [facility] CenterQmhqvzjAYZVTMXPSJ8661-24-22 17:46:00 Test Item Value Reference Range Interpretation Comments Platelet (test code = Platelet) 250 133-450 [facility]SarmiyfRHAWQNBKUU8295-03-23 17:46:00 Test Item Value Reference Range Interpretation Comments RDW (test code = RDW) 16.3 11.5-14.5 [facility] RegionWwifrzgKAMJWPRWSK6223-91-47 17:46:00 Test Item Value Reference Range Interpretation Comments MPV (test code = MPV) 9.1 7.4-10.[address] [facility] HospitalCewpbrlEFCXTKDGBW2519-58-88 17:46:00 Test Item Value Reference Range Interpretation Comments Hgb (test code = Hgb) 13.2 14.0-18.[address] [facility] HospitalItteoowLKWOVBLKUX3812-73-11 17:46:00 Test Item Value Reference Range Interpretation Comments Hct (test code = Hct) 40.2 42.0-54.[address] [facility] HospitalZatljpoCABHZEVHFO4938-57-64 17:46:00 Test Item Value Reference Range Interpretation Comments MCV (test code = MCV) 87.8 80.0-94.[address] [facility] HospitalZgsyhzzIHQAHOLDJQ8209-07-12 17:46:00 Test Item Value Reference Range Interpretation Comments MCH (test code = MCH) 28.9 pg 27.0-31.[address] [facility] HospitalZsueiohOSRRYFOPQS7836-93-61 17:46:00 Test Item Value Reference Range Interpretation Comments WBC (test code = WBC) 9.9 3.7-10.[address] [facility] HospitalVfmzgwgVCRVNBMHGL0029-73-73 17:46:00 Test Item Value Reference Range Interpretation Comments RBC (test code = RBC) 4.58 4.70-6.[address] [facility] HospitalYqprcgwBCVCXWIVQP7315-37-48 17:46:00 Test Item Value Reference Range Interpretation Comments Eosinophils # (test code 0.2 See_Comment [A utomated message] The = Eosinophils #) system whic h generated this result tra nsmitted reference range : <=0.5. The reference r carlos was not used to int erpret this result as normal/abnormal . [facility] HospitalJgphvgyJPSCXEXJMP7659-23-69 17:46:00 Test Item Value Reference Range Interpretation Comments Basophils # (test code 0.1 See_Comment [Aut omated message] The = Basophils #) system which generated this result tra nsmitted reference range : <=0.2. The reference r carlos was not used to int erpret this result as normal/abnormal . [facility] HospitalCxjshxxEDHVIDJUVO1481-62-83 17:46:00 Test Item Value Reference Range Interpretation Comments Basophils (test code = 0.7 See_Comment [Aut omated message] The Basophils) system which ge nerated this result tra nsmitted reference range : <=1.0. The reference r carlos was not used to int erpret this result as normal/abnormal . [facility] HospitalDvdvjiaPZYIWHIENU8039-70-07 17:46:00 Test Item Value Reference Range Interpretation Comments Neutrophils # (test code = Neutrophils 6.6 1.5-8.1 #) [facility] HospitalBqsmjvsNCRALGHEDE7712-52-62 17:46:00 Test Item Value Reference Range Interpretation Comments Lymphocytes # (test code = Lymphocytes 2.4 1.0-5.5 #) [facility] HospitalAobtxkwHQWQEEMGAC5473-13-28 17:46:00 Test Item Value Reference Range Interpretation Comments Monocytes # (test code 0.6 See_Comment [Aut omated message] The = Monocytes #) system which generated this result tra nsmitted reference range : <=0.8. The reference r carlos was not used to int erpret this result as normal/abnormal . [facility] HospitalCibjfzrUIRVSIEQVP3095-18-80 17:46:00 Test Item Value Reference Range Interpretation Comments Segs (test code = Segs) 66.7 45.0-75.[address] [facility] HospitalBpvyubmOAWBZFGGFD0305-91-80 17:46:00 Test Item Value Reference Range Interpretation Comments Monocytes (test code = Monocytes) 6.3 2.0-12.[address] [facility] HospitalIffuxocWYPHRXTOOO4588-31-52 17:46:00 Test Item Value Reference Range Interpretation Comments Lymphocytes (test code = Lymphocytes) 24.3 20.0-40.[address] [facility] HospitalAornhmbOOAMAOZUDG4977-75-72 17:46:00 Test Item Value Reference Range Interpretation Comments Eosinophils (test code = 2.0 See_Comment [A utomated message] The Eosinophils) system which ge nerated this result tra nsmitted reference range : <=4.0. The reference r carlos was not used to int erpret this result as normal/abnormal . [facility]MoqhkjsYLIZBYLVHD7464-44-03 17:46:00 Test Item Value Reference Range Interpretation Comments Rennert/Lambda Free Light Chains Ratio 2.17 0.26-1.65 (test code = Rennert/Lambda Free Light Chains Ratio) [facility]RxhdlnxWQGOWTPMLD9532-10-79 17:46:00 Test Item Value Reference Range Interpretation Comments Rennert Free Light Chains (test code = 92.69 3.30-19.40 Rennert Free Light Chains) [facility] TylerEhcapsfZFEHMUFTDO8060-82-81 17:46:00 Test Item Value Reference Range Interpretation Comments Lambda Free Light Chains (test code = 42.69 5.70-26.30 Lambda Free Light Chains) [facility]2019-04-24 17:46:00 Test Item Value Reference Range Interpretation Comments LDH (test code = LDH) 150 98-192 [facility]2019-04-24 17:46:00 Test Item Value Reference Range Interpretation Comments Y-5-Boorqijqd (test code = 9.6 1.0-2.3 X-3-Jefadvztk) [facility] HospitalKueoyiyUWXFNMKPYU8722-87-84 17:46:00 Test Item Value Reference Range Interpretation Comments MCHC (test code = MCHC) 32.9 32.0-36.[address] [facility] HospitalXksgxajFYGGGKHDLU1734-48-30 17:46:00 Test Item Value Reference Range Interpretation Comments Platelet (test code = Platelet) 250 133-[address] [facility] HospitalQwzhummVQIQSPQKZL8188-84-77 17:46:00 Test Item Value Reference Range Interpretation Comments RDW (test code = RDW) 16.3 11.5-14.[address] [facility] HospitalGyjykjjPLDZEDKFTQ7237-81-83 17:46:00 Test Item Value Reference Range Interpretation Comments MPV (test code = MPV) 9.1 7.4-10.[address] [facility] HospitalIlybqocQVFICVILHZ9346-62-48 17:46:00 Test Item Value Reference Range Interpretation Comments Hgb (test code = Hgb) 13.2 14.0-18.[address] [facility] HospitalMvufydvRKNPQSIVXN4060-67-24 17:46:00 Test Item Value Reference Range Interpretation Comments Hct (test code = Hct) 40.2 42.0-54.[address] [facility] HospitalQhuzgnwGRFFGVHLZM7491-86-81 17:46:00 Test Item Value Reference Range Interpretation Comments MCV (test code = MCV) 87.8 80.0-94.[address] [facility] HospitalMetdwlxCAEZIFBDDD9068-76-93 17:46:00 Test Item Value Reference Range Interpretation Comments MCH (test code = MCH) 28.9 pg 27.0-31.[address] [facility] HospitalNmymjtwVEAAOYBFVO9461-84-03 17:46:00 Test Item Value Reference Range Interpretation Comments WBC (test code = WBC) 9.9 3.7-10.[address] [facility] HospitalQyahhwrNOSJEKFQTI9767-88-43 17:46:00 Test Item Value Reference Range Interpretation Comments RBC (test code = RBC) 4.58 4.70-6.[address] [facility] HospitalUfwdijnSCACKVUFAG7233-11-78 17:46:00 Test Item Value Reference Range Interpretation Comments Eosinophils # (test code 0.2 See_Comment [A utomated message] The = Eosinophils #) system whic h generated this result tra nsmitted reference range : <=0.5. The reference r carlos was not used to int erpret this result as normal/abnormal . [facility] HospitalIvhrwkgDPLVJNTVXB9042-85-40 17:46:00 Test Item Value Reference Range Interpretation Comments Basophils # (test code 0.1 See_Comment [Aut omated message] The = Basophils #) system which generated this result tra nsmitted reference range : <=0.2. The reference r carlos was not used to int erpret this result as normal/abnormal . [facility] HospitalYmnazxxXZPNVOYZYP0580-60-01 17:46:00 Test Item Value Reference Range Interpretation Comments Basophils (test code = 0.7 See_Comment [Aut omated message] The Basophils) system which ge nerated this result tra nsmitted reference range : <=1.0. The reference r carlos was not used to int erpret this result as normal/abnormal . [facility] HospitalXaosaloUZZIQFIKDB5850-73-70 17:46:00 Test Item Value Reference Range Interpretation Comments Neutrophils # (test code = Neutrophils 6.6 1.5-8.1 #) [facility] HospitalCwohgdpPGLPURPGOM9633-57-07 17:46:00 Test Item Value Reference Range Interpretation Comments Lymphocytes # (test code = Lymphocytes 2.4 1.0-5.5 #) [facility] HospitalSofqsokUYRMNWPRMS5007-70-48 17:46:00 Test Item Value Reference Range Interpretation Comments Monocytes # (test code 0.6 See_Comment [Aut omated message] The = Monocytes #) system which generated this result tra nsmitted reference range : <=0.8. The reference r carlos was not used to int erpret this result as normal/abnormal . [facility] HospitalZvrllbiCURFQUENWW9273-31-42 17:46:00 Test Item Value Reference Range Interpretation Comments Segs (test code = Segs) 66.7 45.0-75.[address] [facility] HospitalVusfumrBBRXHETCQM0550-21-64 17:46:00 Test Item Value Reference Range Interpretation Comments Monocytes (test code = Monocytes) 6.3 2.0-12.0 [place] 624209-04-24 17:46:00 Test Item Value Reference Range Interpretation Comments Lymphocytes (test code = Lymphocytes) 24.3 20.0-40.[address] [facility] HospitalBvxwpisBQXQFGQHBJ3315-29-15 17:46:00 Test Item Value Reference Range Interpretation Comments Eosinophils (test code = 2.0 See_Comment [A utomated message] The Eosinophils) system which ge nerated this result tra nsmitted reference range : <=4.0. The reference r carlos was not used to int erpret this result as normal/abnormal . [facility] CenterTsltfipGULWZXSHGE5990-11-42 17:46:00 Test Item Value Reference Range Interpretation Comments Rennert/Lambda Free Light Chains Ratio 2.17 0.26-1.65 (test code = Rennert/Lambda Free Light Chains Ratio) [facility]LmnkkvgIZQIXJWTYB4677-53-96 17:46:00 Test Item Value Reference Range Interpretation Comments Rennert Free Light Chains (test code = 92.69 3.30-19.40 Rennert Free Light Chains) [facility] CenterEqchfrfEJILSVAAVI9442-98-99 17:46:00 Test Item Value Reference Range Interpretation Comments Lambda Free Light Chains (test code = 42.69 5.70-26.30 Lambda Free Light Chains) [facility] CenterCHEM PBFSV0289-44-71 17:46:00 Test Item Value Reference Range Interpretation Comments LDH (test code = LDH) 150 98-192 [facility] CenterCHE[facility] RMZRE4015-02-51 17:46:00 Test Item Value Reference Range Interpretation Comments W-8-Divcnwjzb (test code = 9.6 1.0-2.3 F-5-Fnacotakf) [facility] HospitalPxeekqmIQPHUPYMWM0624-19-95 17:46:00 Test Item Value Reference Range Interpretation Comments MCHC (test code = MCHC) 32.9 32.0-36.[address] [facility] HospitalQnhvjzwJBDBTNTKAR4849-07-00 17:46:00 Test Item Value Reference Range Interpretation Comments Platelet (test code = Platelet) 250 133-[address] [facility] HospitalSqiozqqNKUCMFAYAN2702-37-86 17:46:00 Test Item Value Reference Range Interpretation Comments RDW (test code = RDW) 16.3 11.5-14.[address] [facility] HospitalCnutnznRGOSNTKXPV9214-04-17 17:46:00 Test Item Value Reference Range Interpretation Comments MPV (test code = MPV) 9.1 7.4-10.[address] [facility] HospitalUlakiggTSOWHLRIDR5593-73-92 17:46:00 Test Item Value Reference Range Interpretation Comments Hgb (test code = Hgb) 13.2 14.0-18.[address] [facility] HospitalEgpyqtiEOVDUKURXC3236-91-20 17:46:00 Test Item Value Reference Range Interpretation Comments Hct (test code = Hct) 40.2 42.0-54.[address] [facility] HospitalVyadrzqWHMUNCZTER8410-18-04 17:46:00 Test Item Value Reference Range Interpretation Comments MCV (test code = MCV) 87.8 80.0-94.[address] [facility] HospitalWkxhibfNIWHJRAAQD7126-90-75 17:46:00 Test Item Value Reference Range Interpretation Comments MCH (test code = MCH) 28.9 pg 27.0-31.[address] [facility] HospitalDtdpjthBDDVOLMEGW5179-12-76 17:46:00 Test Item Value Reference Range Interpretation Comments WBC (test code = WBC) 9.9 3.7-10.[address] [facility] HospitalPsmpqqaVDEFZYAAGW9211-73-24 17:46:00 Test Item Value Reference Range Interpretation Comments RBC (test code = RBC) 4.58 4.70-6.[address] [facility] HospitalQvbyobaZHBNKKMXMB1424-43-75 17:46:00 Test Item Value Reference Range Interpretation Comments Eosinophils # (test code 0.2 See_Comment [A utomated message] The = Eosinophils #) system whic h generated this result tra nsmitted reference range : <=0.5. The reference r carlos was not used to int erpret this result as normal/abnormal . [facility] HospitalEwlqwevPBRDLKVCHK1536-27-89 17:46:00 Test Item Value Reference Range Interpretation Comments Basophils # (test code 0.1 See_Comment [Aut omated message] The = Basophils #) system which generated this result tra nsmitted reference range : <=0.2. The reference r carlos was not used to int erpret this result as normal/abnormal . [facility] HospitalKvotujlNYDHZIDEKL0059-01-51 17:46:00 Test Item Value Reference Range Interpretation Comments Basophils (test code = 0.7 See_Comment [Aut omated message] The Basophils) system which ge nerated this result tra nsmitted reference range : <=1.0. The reference r carlos was not used to int erpret this result as normal/abnormal . [facility] HospitalYjqyjtjCOTECSZJXJ0829-55-78 17:46:00 Test Item Value Reference Range Interpretation Comments Neutrophils # (test code = Neutrophils 6.6 1.5-8.1 #) [facility] HospitalGgxdcqxSCTWIYBIZM5740-42-14 17:46:00 Test Item Value Reference Range Interpretation Comments Lymphocytes # (test code = Lymphocytes 2.4 1.0-5.5 #) [facility] HospitalKydwncdKBQRFLUYAJ2294-24-01 17:46:00 Test Item Value Reference Range Interpretation Comments Monocytes # (test code 0.6 See_Comment [Aut omated message] The = Monocytes #) system which generated this result tra nsmitted reference range : <=0.8. The reference r carlos was not used to int erpret this result as normal/abnormal . [facility] HospitalFgnzmalTDHIHUXDBV0623-79-76 17:46:00 Test Item Value Reference Range Interpretation Comments Segs (test code = Segs) 66.7 45.0-75.[address] [facility] HospitalVdculvdNAICBSJYYZ1819-86-17 17:46:00 Test Item Value Reference Range Interpretation Comments Monocytes (test code = Monocytes) 6.3 2.0-12.[address] [facility] HospitalHrjiqjbQSDQPHWMNW9677-17-38 17:46:00 Test Item Value Reference Range Interpretation Comments Lymphocytes (test code = Lymphocytes) 24.3 20.0-40.[address] [facility] HospitalKgvbryxYOZQDAGFXT1067-97-41 17:46:00 Test Item Value Reference Range Interpretation Comments Eosinophils (test code = 2.0 See_Comment [A utomated message] The Eosinophils) system which ge nerated this result tra nsmitted reference range : <=4.0. The reference r carlos was not used to int erpret this result as normal/abnormal . [facility]EhrodomDZQRNBZOQN3408-03-67 17:46:00 Test Item Value Reference Range Interpretation Comments Rennert/Lambda Free Light Chains Ratio 2.17 0.26-1.65 (test code = Rennert/Lambda Free Light Chains Ratio) [facility] TylerUlfahsbOHPSODWAFA4400-97-58 17:46:00 Test Item Value Reference Range Interpretation Comments Rennert Free Light Chains (test code = 92.69 3.30-19.40 Rennert Free Light Chains) [facility] TylerAcgtgttBCFYDZFWZO8362-50-11 17:46:00 Test Item Value Reference Range Interpretation Comments Lambda Free Light Chains (test code = 42.69 5.70-26.30 Lambda Free Light Chains) [facility]2019-04-24 17:46:00 Test Item Value Reference Range Interpretation Comments LDH (test code = LDH) 150 98-192 [facility]2019-04-24 17:46:00 Test Item Value Reference Range Interpretation Comments W-5-Dysnupwmx (test code = 9.6 1.0-2.3 A-3-Kajfoibiq) [facility] HospitalGtzrxskSBTWALXRAZ3677-93-70 17:46:00 Test Item Value Reference Range Interpretation Comments MCHC (test code = MCHC) 32.9 32.0-36.[address] [facility] HospitalLllddhrBZNPHBMOEW2182-65-12 17:46:00 Test Item Value Reference Range Interpretation Comments Platelet (test code = Platelet) 250 133-[address] [facility] HospitalYipxdajLOUTDOTSOL1656-76-13 17:46:00 Test Item Value Reference Range Interpretation Comments RDW (test code = RDW) 16.3 11.5-14.[address] [facility] HospitalIyueuzsFQJOERHKEC6633-59-30 17:46:00 Test Item Value Reference Range Interpretation Comments MPV (test code = MPV) 9.1 7.4-10.[address] [facility] HospitalKsceissGKFQXGJLGH4818-75-41 17:46:00 Test Item Value Reference Range Interpretation Comments Hgb (test code = Hgb) 13.2 14.0-18.[address] [facility] HospitalIsacwjjJTNFPGWAXO4354-52-88 17:46:00 Test Item Value Reference Range Interpretation Comments Hct (test code = Hct) 40.2 42.0-54.[address] [facility] HospitalDpwehxwGSOVZYMXZD5429-38-26 17:46:00 Test Item Value Reference Range Interpretation Comments MCV (test code = MCV) 87.8 80.0-94.[address] [facility] HospitalNeidhxoPFLMSMPCHK4586-25-88 17:46:00 Test Item Value Reference Range Interpretation Comments MCH (test code = MCH) 28.9 pg 27.0-31.[address] [facility] HospitalHzanpefTXBECGTIXF1830-74-50 17:46:00 Test Item Value Reference Range Interpretation Comments WBC (test code = WBC) 9.9 3.7-10.[address] [facility] HospitalHqywghbRXNLATIMBP6286-04-68 17:46:00 Test Item Value Reference Range Interpretation Comments RBC (test code = RBC) 4.58 4.70-6.[address] [facility] HospitalJyfutjmIWPDATWIUQ1283-52-28 17:46:00 Test Item Value Reference Range Interpretation Comments Eosinophils # (test code 0.2 See_Comment [A utomated message] The = Eosinophils #) system whic h generated this result tra nsmitted reference range : <=0.5. The reference r carlos was not used to int erpret this result as normal/abnormal . [facility] HospitalFexaqcsXYXGDDUWCI9854-95-53 17:46:00 Test Item Value Reference Range Interpretation Comments Basophils # (test code 0.1 See_Comment [Aut omated message] The = Basophils #) system which generated this result tra nsmitted reference range : <=0.2. The reference r carlos was not used to int erpret this result as normal/abnormal . [facility] HospitalYlhpncjITUHUCFQWY8895-38-05 17:46:00 Test Item Value Reference Range Interpretation Comments Basophils (test code = 0.7 See_Comment [Aut omated message] The Basophils) system which ge nerated this result tra nsmitted reference range : <=1.0. The reference r carlos was not used to int erpret this result as normal/abnormal . [facility] HospitalSzdvhxyOVJCFDCCTV3843-07-66 17:46:00 Test Item Value Reference Range Interpretation Comments Neutrophils # (test code = Neutrophils 6.6 1.5-8.1 #) [facility] HospitalQyoqiruGOCVYQRZOK5967-89-52 17:46:00 Test Item Value Reference Range Interpretation Comments Lymphocytes # (test code = Lymphocytes 2.4 1.0-5.5 #) [facility] HospitalCmgmitjTHJQBGZUYN4902-61-85 17:46:00 Test Item Value Reference Range Interpretation Comments Monocytes # (test code 0.6 See_Comment [Aut omated message] The = Monocytes #) system which generated this result tra nsmitted reference range : <=0.8. The reference r carlos was not used to int erpret this result as normal/abnormal . [facility] HospitalKyhhsdiWOPSERUXWY2577-93-55 17:46:00 Test Item Value Reference Range Interpretation Comments Segs (test code = Segs) 66.7 45.0-75.[address] [facility] HospitalPmzxdioOBAFPYDVAU9622-79-40 17:46:00 Test Item Value Reference Range Interpretation Comments Monocytes (test code = Monocytes) 6.3 2.0-12.[address] [facility] HospitalEbywjypDECQDPUSXP4678-87-60 17:46:00 Test Item Value Reference Range Interpretation Comments Lymphocytes (test code = Lymphocytes) 24.3 20.0-40.0 [facility] CenterNakoxbuDLWJTWADQX8606-83-29 17:46:00 Test Item Value Reference Range Interpretation Comments Eosinophils (test code = 2.0 See_Comment [A utomated message] The Eosinophils) system which ge nerated this result tra nsmitted reference range : <=4.0. The reference r carlos was not used to int erpret this result as normal/abnormal . [facility]enCfwbqdlKLVSQDSSOO8325-17-79 17:46:00 Test Item Value Reference Range Interpretation Comments Rennert/Lambda Free Light Chains Ratio 2.17 0.26-1.65 (test code = Rennert/Lambda Free Light Chains Ratio) [facility] CenterJuoroevJCSEQSNEWK0782-46-74 17:46:00 Test Item Value Reference Range Interpretation Comments Rennert Free Light Chains (test code = 92.69 3.30-19.40 Rennert Free Light Chains) [facility] CenterWpozejjUQSVGDFUQI0729-61-45 17:46:00 Test Item Value Reference Range Interpretation Comments Lambda Free Light Chains (test code = 42.69 5.70-26.30 Lambda Free Light Chains) [facility] CenterRmwfcsnNBHFLAUNTM6009-29-84 17:44:11 Test Item Value Reference Range Interpretation [...] and concur with the resident's interpretation. CPT 23331-KF [facility] CenterPsvrmhrRSYJTTUPUM7201-56-94 17:44:11 Test Item Value Reference Range Interpretation Comments U KAREN Pattern Diffusely staining (test code = U KAREN immunoreactivity is present Pattern) mainly in IgG, IgA, kappa and lambda lanes. No monoclonal bands are seen. [facility] CenterPyoashbKLEOGUPYDG4130-41-81 17:44:11 Test Item Value Reference Range Interpretation [...] results and concur with the resident's interpretation. [facility] [address]-OO [facility] McallenGxgyxcwFARTVRZAQC3589-80-08 17:44:11 Test Item Value Reference Range Interpretation Comments U KAREN Pattern Diffusely staining (test code = U KAREN immunoreactivity is present Pattern) mainly in IgG, IgA, kappa and lambda lanes. No monoclonal bands are seen. [facility] McallenHqfswtuANJNXMHOEN4668-25-03 17:44:11 Test Item Value Reference Range Interpretation [...] results and concur with the resident's interpretation. [facility] [id number] [facility] System McallenWcjzupfDAUKBNHZHQ2756-40-29 17:44:11 Test Item Value Reference Range Interpretation Comments U KAREN Pattern Diffusely staining (test code = U KAREN immunoreactivity is present Pattern) mainly in IgG, IgA, kappa and lambda lanes. No monoclonal bands are seen. [facility]GgswpryXTVZZRDSRL8741-63-50 17:44:11 Test Item Value Reference Range Interpretation [...] results and concur with the resident's interpretation. [facility] [id number] [facility] McallenSbqbrcoEUSQBDXKAZ9504-13-95 17:44:11 Test Item Value Reference Range Interpretation Comments U KAREN Pattern Diffusely staining (test code = U KAREN immunoreactivity is present Pattern) mainly in IgG, IgA, kappa and lambda lanes. No monoclonal bands are seen. [facility] [id number] 20:36:00 Test Item Value Reference Range Interpretation Comments Test Name (test code = HLA TYPING RESULTS Test Name) [facility] [id number] 20:36:00 Test Item Value Reference Range Interpretation Comments Test Name (test code = HLA TYPING RESULTS Test Name) [facility] [id number] 20:36:00 Test Item Value Reference Range Interpretation Comments Test Name (test code = HLA TYPING RESULTS Test Name) [facility] [id number] 20:36:00 Test Item Value Reference Range Interpretation Comments Test Name (test code = HLA TYPING RESULTS Test Name) [facility] [id number] 15:40:00 Test Item Value Reference Range Interpretation Comments ABO/RH Confirm (test code = ABO/RH O POS Confirm) [facility] [id number] 15:40:00 Test Item Value Reference Range Interpretation Comments ABO/RH Confirm (test code = ABO/RH O POS Confirm) [facility] [id number] 15:40:00 Test Item Value Reference Range Interpretation Comments ABO/RH Confirm (test code = ABO/RH O POS Confirm) [facility] [id number] 15:40:00 Test Item Value Reference Range Interpretation Comments ABO/RH Confirm (test code = ABO/RH O POS Confirm) [facility] [id number] 14:50:00 Test Item Value Reference Range Interpretation Comments Ferritin Lvl (test code = Ferritin Lvl) 213 22-275 [facility] [id number] 14:50:00 Test Item Value Reference Range Interpretation Comments UIBC (test code = UIBC) 261 110-370 [facility] [id number] 14:50:00 Test Item Value Reference Range Interpretation Comments % Satur Fe (test code = % Satur Fe) 15 12-57 [facility] [id number] 14:50:00 Test Item Value Reference Range Interpretation Comments Iron (test code = Iron) 46 45-160 [facility] [id number] 14:50:00 Test Item Value Reference Range Interpretation Comments TIBC (test code = TIBC) 307 228-428 [facility] [id number] 14:50:00 Test Item Value Reference Range Interpretation Comments OP ABORh Int (test code = OP ABORh Int) O POS [facility] [id number] 14:50:00 Test Item Value Reference Range Interpretation Comments Vitamin D, 25-OH, Total (test code = 36.8 30.0-100.0 Vitamin D, 25-OH, Total) [facility]2019-02-05 14:50:00 Test Item Value Reference Range Interpretation Comments Uric Acid (test code = Uric Acid) 7.3 3.8-8.0 [facility]2019-02-05 14:50:00 Test Item Value Reference Range Interpretation Comments Phosphorus (test code = Phosphorus) 3.4 2.5-4.5 [facility]2019-02-05 14:50:00 Test Item Value Reference Range Interpretation Comments Magnesium Lvl (test code = Magnesium 2.0 1.8-2.4 Lvl) [facility]2019-02-05 14:50:00 Test Item Value Reference Range Interpretation Comments C-Peptide (test code = C-Peptide) 8.17 0.48-5.05 [facility]2019-02-05 14:50:00 Test Item Value Reference Range Interpretation Comments A/G Ratio (test code = A/G Ratio) 0.9 1 0.7-1.6 [place] [id number] 14:50:00 Test Item Value Reference Range Interpretation Comments B/C Ratio (test code = B/C Ratio) 9 1 6-25 [facility]2019-02-05 14:50:00 Test Item Value Reference Range Interpretation Comments AGAP (test code = AGAP) 12.4 10.0-20.0 [facility]2019-02-05 14:50:00 Test Item Value Reference Range Interpretation Comments Globulin (test code = Globulin) 4.2 2.7-4.2 [facility]2019-02-05 14:50:00 Test Item Value Reference Range Interpretation Comments eGFR (test code = eGFR) 14 [facility]2019-02-05 14:50:00 Test Item Value Reference Range Interpretation Comments ALT (test code = ALT) 12 See_Comment [Auto mated message] The system which ge nerated this result transmit nicko reference range : <=65. The reference range was not used to interpr et this result as adebayo l/abnormal. [facility]2019-02-05 14:50:00 Test Item Value Reference Range Interpretation Comments Alk Phos (test code = Alk Phos) 70 39-136 [facility]2019-02-05 14:50:00 Test Item Value Reference Range Interpretation Comments AST (test code = AST) 8 See_Comment [Auto mated message] The system which ge nerated this result transmit nicko reference range : <=37. The reference range was not used to interpr et this result as adebayo l/abnormal. [facility]2019-02-05 14:50:00 Test Item Value Reference Range Interpretation Comments Albumin Lvl (test code = Albumin Lvl) 3.7 3.5-5.0 [facility]2019-02-05 14:50:00 Test Item Value Reference Range Interpretation Comments Bili Total (test code = Bili Total) 0.3 0.2-1.3 [facility]2019-02-05 14:50:00 Test Item Value Reference Range Interpretation Comments Glucose Lvl (test code = Glucose Lvl) 83 70-99 [facility]2019-02-05 14:50:00 Test Item Value Reference Range Interpretation Comments Sodium Lvl (test code = Sodium Lvl) 137 135-145 [facility]2019-02-05 14:50:00 Test Item Value Reference Range Interpretation Comments BUN (test code = BUN) 35 7-22 [facility]2019-02-05 14:50:00 Test Item Value Reference Range Interpretation Comments Creatinine Lvl (test code = Creatinine 4.10 0.50-1.40 Lvl) [facility]2019-02-05 14:50:00 Test Item Value Reference Range Interpretation Comments CO2 (test code = CO2) 25 24-32 [facility]2019-02-05 14:50:00 Test Item Value Reference Range Interpretation Comments Calcium Lvl (test code = Calcium Lvl) 9.7 8.5-10.5 [facility]2019-02-05 14:50:00 Test Item Value Reference Range Interpretation Comments Potassium Lvl (test code = Potassium 4.4 3.5-5.1 Lvl) [facility]2019-02-05 14:50:00 Test Item Value Reference Range Interpretation Comments Chloride Lvl (test code = Chloride Lvl) 104 95-109 [place] [id number] 14:50:00 Test Item Value Reference Range Interpretation Comments Total Protein (test code = Total 7.9 6.4-8.4 Protein) [facility] [id number] 14:50:00 Test Item Value Reference Range Interpretation Comments Opiate Qnt (test code = Opiate Qnt) Negative [facility]annDR[facility] [id number] 14:50:00 Test Item Value Reference Range Interpretation Comments Phencyclidine Scr (test code = Negative Phencyclidine Scr) [facility] [id number] 14:50:00 Test Item Value Reference Range Interpretation Comments Kaitlin Scr (test code = Kaitlin Scr) Negative [facility]enannDR[facility] [id number] 14:50:00 Test Item Value Reference Range Interpretation Comments Methadone Scr (test code = Methadone Negative Scr) [facility] [id number] 14:50:00 Test Item Value Reference Range Interpretation Comments Cocaine Scr (test code = Cocaine Negative Scr) [facility] [id number] 14:50:00 Test Item Value Reference Range Interpretation Comments Cannab Scr (test code = Cannab Scr) Negative [facility] [id number] 14:50:00 Test Item Value Reference Range Interpretation Comments Amph Scr (test code = Amph Scr) Negative [facility] [id number] 14:50:00 Test Item Value Reference Range Interpretation Comments Opiate Scr (test code = Opiate Scr) Positive [facility] [id number] 14:50:00 Test Item Value Reference Range Interpretation Comments 6-Acetylmor Scr (test code = Negative 6-Acetylmor Scr) [facility] [id number] 14:50:00 Test Item Value Reference Range Interpretation Comments Benzodiaz Scr (test code = Benzodiaz Negative Scr) [facility] CenterTbrvbnkUQFHVJDENK3926-40-67 14:50:00 Test Item Value Reference Range Interpretation Comments Basophils # (test code 0.1 See_Comment [Aut omated message] The = Basophils #) system which generated this result tra nsmitted reference range : <=0.2. The reference r carlos was not used to int erpret this result as normal/abnormal . [id number] 14:50:00 Test Item Value Reference Range Interpretation Comments Segs (test code = Segs) 68.2 45.0-75.[address] [facility] HospitalDzctpsvFVHSGZXUOF0008-16-99 14:50:00 Test Item Value Reference Range Interpretation Comments Lymphocytes (test code = Lymphocytes) 20.5 20.0-40.[address] [facility] HospitalJojyemaNQBBAFBLYY7875-66-54 14:50:00 Test Item Value Reference Range Interpretation Comments Neutrophils # (test code = Neutrophils 6.0 1.5-8.1 #) [facility] HospitalOmrzbvzTGMTXZZJKM9466-14-23 14:50:00 Test Item Value Reference Range Interpretation Comments Basophils (test code = 0.6 See_Comment [Aut omated message] The Basophils) system which ge nerated this result tra nsmitted reference range : <=1.0. The reference r carlos was not used to int erpret this result as normal/abnormal . [facility] HospitalMraepabPKHEGNSIVL2136-70-86 14:50:00 Test Item Value Reference Range Interpretation Comments Lymphocytes # (test code = Lymphocytes 1.8 1.0-5.5 #) [facility] HospitalQfnoxtaSRZZTIAHOY5896-87-99 14:50:00 Test Item Value Reference Range Interpretation Comments Eosinophils (test code = 3.2 See_Comment [A utomated message] The Eosinophils) system which ge nerated this result tra nsmitted reference range : <=4.0. The reference r carlos was not used to int erpret this result as normal/abnormal . [facility] HospitalTakrhztVXNAKDZSAS7413-51-93 14:50:00 Test Item Value Reference Range Interpretation Comments Monocytes (test code = Monocytes) 7.5 2.0-12.[address] [facility] [facility] HospitalYivktphJLWNTDMOTO7136-76-72 14:50:00 Test Item Value Reference Range Interpretation Comments Eosinophils # (test code 0.3 See_Comment [A utomated message] The = Eosinophils #) [facility] generated this result tra nsmitted reference range : <=0.5. The reference r carlos was not used to int erpret this result as normal/abnormal . [facility] HospitalJkygcneUSVPDXWXQF0832-39-79 14:50:00 Test Item Value Reference Range Interpretation Comments Monocytes # (test code 0.7 See_Comment [Aut omated message] The = Monocytes #) system which generated this result tra nsmitted reference range : <=0.8. The reference r carlos was not used to int erpret this result as normal/abnormal . [facility] HospitalYjaflvrFPNUXSUVDL4120-57-27 14:50:00 Test Item Value Reference Range Interpretation Comments Hgb (test code = Hgb) 13.3 14.0-18.[address] [facility] HospitalAobpriiCXOOJLPZUQ9208-04-53 14:50:00 Test Item Value Reference Range Interpretation Comments Hct (test code = Hct) 41.1 42.0-54.[address] [facility] HospitalMpomyllUVELFCNCHU1576-41-91 14:50:00 Test Item Value Reference Range Interpretation Comments MCV (test code = MCV) 88.4 80.0-94.[address] [facility] HospitalVnmqbjoJGDBAQFVDR0169-56-47 14:50:00 Test Item Value Reference Range Interpretation Comments MCH (test code = MCH) 28.7 pg 27.0-31.[address] [facility] HospitalMwemcusPYOCEPUIYF9043-78-46 14:50:00 Test Item Value Reference Range Interpretation Comments RBC (test code = RBC) 4.65 4.70-6.[address] [facility] HospitalCutitqcPBQMWDLHXH8140-70-14 14:50:00 Test Item Value Reference Range Interpretation Comments RDW (test code = RDW) 14.6 11.5-14.[address] [facility] HospitalLjtnelaZVZPIDAZCB6399-94-64 14:50:00 Test Item Value Reference Range Interpretation Comments MCHC (test code = MCHC) 32.5 32.0-36.[address] [facility] HospitalKpdyywlEFLVQWFIHU2152-73-99 14:50:00 Test Item Value Reference Range Interpretation Comments Platelet (test code = Platelet) 238 133-[address] [facility] HospitalLhcdiaqMRXQONTPOD3178-46-91 14:50:00 Test Item Value Reference Range Interpretation Comments MPV (test code = MPV) 9.0 7.4-10.[address] [facility] HospitalKiatrzwPJVETQPGYI4935-33-31 14:50:00 Test Item Value Reference Range Interpretation Comments WBC (test code = WBC) 8.8 3.7-10.[address] [facility] HospitalVmfqykqBFZLTMXHKI7373-33-31 14:50:00 Test Item Value Reference Range Interpretation Comments INR (test code = INR) 0.96 1 0.85-1.[address] [facility] HospitalLozhgzoHALESJFMFF7082-56-07 14:50:00 Test Item Value Reference Range Interpretation Comments PT (test code = PT) 12.6 s 12.0-14.[address] [facility] [facility] HospitalYuxwlpdLWZZCNUNSD5387-36-11 14:50:00 Test Item Value Reference Range Interpretation Comments PTT (test code = PTT) 34.7 s 22.9-35.8 [facility]BinyhsvGHEWGGTPCQ0352-84-[facility] 14:50:00 Test Item Value Reference Range Interpretation Comments Treponemal Ab (test code Non-Reactive = Treponemal Ab) *NA*(04/06/18 8:50 AM) [facility] TylerKofqoamGYFAJQBPSD5235-81-40 14:50:00 Test Item Value Reference Range Interpretation Comments Varicella IgM (test no gt See_Comment [Automa nicko message] The code = Varicella IgM) system which generated this result tra nsmitted reference range : <=0.90. The reference r carlos was not used to int erpret this result as normal/abnormal . [facility] TylerLarbbjmAVRWVJMFTI0614-13-19 14:50:00 Test Item Value Reference Range Interpretation Comments Varicella IgG (test code = Varicella no gt IgG) [facility] TylerRuxdczhIMHQBHAGXM2449-25-18 14:50:00 Test Item Value Reference Range Interpretation Comments Hep Bs Ag (test code Negative *NA*(04/06/18 = Hep Bs Ag) 8:50 AM) [facility] TylerCcldqmzKAHHEJPQZQ5000-74-36 14:50:00 Test Item Value Reference Range Interpretation Comments HSV 1 IgG (test code = HSV 1 IgG) no gt [facility] CenterWwfhwwzRWJXTLTQQX9516-82-62 14:50:00 Test Item Value Reference Range Interpretation Comments HSV 2 IgG (test code = HSV 2 IgG) no gt [facility] TylerJexsitlECOEVYASSO8777-24-44 14:50:00 Test Item Value Reference Range Interpretation Comments Lambda Free Light Chains (test code = 66.41 5.70-26.30 Lambda Free Light Chains) [facility] TylerDpplzsqXRZFMBICLZ2620-85-12 14:50:00 Test Item Value Reference Range Interpretation Comments Rennert/Lambda Free Light Chains Ratio 1.66 0.26-1.65 (test code = Rennert/Lambda Free Light Chains Ratio) [facility] TylerSqakngsWZFRNLOVZP3464-73-82 14:50:00 Test Item Value Reference Range Interpretation Comments Rennert Free Light Chains (test code = 110.34 3.30-19.40 Rennert Free Light Chains) [facility] TylerNlhivrgJQIHGRSQSP9200-94-19 14:50:00 Test Item Value Reference Range Interpretation Comments Hep C Ab (test code = Negative *NA*(04/06/18 Hep C Ab) 8:50 AM) [facility] TylerIdutbtmFNXUNQYEYM8135-95-34 14:50:00 Test Item Value Reference Range Interpretation Comments T-Spot.TB (test code Negative (04/06/18 8:50 = T-Spot.TB) AM) [facility] TylerXcszkltDQSDUSKHBQ8606-09-14 14:50:00 Test Item Value Reference Range Interpretation [...] and concur with the resident's interpretation. CPT 34333-[place] [facility] TylerCqatciwKUSLJDEDCE3914-48-53 14:50:00 Test Item Value Reference Range Interpretation Comments Beta Glob (test code = Beta Glob) 0.99 0.50-1.15 [facility] TylerRillkgrDPULZFQSIW6963-72-26 14:50:00 Test Item Value Reference Range Interpretation Comments Gamma Glob (test code = Gamma Glob) 1.28 0.71-1.57 [facility] TylerUmvjqyqBZKLEEWGSW8272-68-16 14:50:00 Test Item Value Reference Range Interpretation Comments Tot Prot (SPE) (test code = Tot Prot 7.9 6.4-8.4 (SPE)) [facility] TylerZifdasuIVSZSVPYDH2837-18-23 14:50:00 Test Item Value Reference Range Interpretation Comments Albumin (SPE) (test code = Albumin 4.25 3.57-5.55 (SPE)) [facility] TylerDthdtiuRZGXCCJUSS2923-44-82 14:50:00 Test Item Value Reference Range Interpretation Comments Gamma % (test code = Gamma %) 16.2 11.1-18.7 [facility] CenterPargcobNVSZDLZIKP0143-80-52 14:50:00 Test Item Value Reference Range Interpretation Comments Alpha 1 Glob (test code = Alpha 1 Glob) 0.43 0.18-0.41 [facility] CenterZzzoosbSIITFNWGPP4079-21-96 14:50:00 Test Item Value Reference Range Interpretation Comments Alpha 2 Glob (test code = Alpha 2 Glob) 0.96 0.45-1.00 [facility] CenterUmjmkopPDIPHXSBYF1075-67-14 14:50:00 Test Item Value Reference Range Interpretation Comments Alpha 1 % (test code = Alpha 1 %) 5.4 2.8-4.9 [facility] TylerSmztwtvLIJKVTWNMD4259-92-21 14:50:00 Test Item Value Reference Range Interpretation Comments Albumin % (test code = Albumin %) 53.8 55.8-66.1 [facility] TylerMzhyymzONNVCFFLCP3401-23-21 14:50:00 Test Item Value Reference Range Interpretation Comments Beta % (test code = Beta %) 12.5 7.8-13.7 [facility] TylerGvjqkzxTMVEKEKNXR6614-61-31 14:50:00 Test Item Value Reference Range Interpretation Comments Alpha 2 % (test code = Alpha 2 %) 12.1 7.0-11.9 [facility] TylerJhlhwucMDINJKPNZH7802-36-73 14:50:00 Test Item Value Reference Range Interpretation Comments EBV VCA IgM (test code = EBV VCA IgM) no gt [facility] TylerMsiplsdKOXURADNLK2865-12-10 14:50:00 Test Item Value Reference Range Interpretation Comments EBV VCA IgG (test code = EBV VCA IgG) no gt [facility] TylerYvcorzzUPBWCCFSXJ5137-40-35 14:50:00 Test Item Value Reference Range Interpretation Comments Hep Bs Ab (test code = Hep Bs Ab) 5.2 [facility] TylerZhhjdlcWSRVRHTBIL7018-08-58 14:50:00 Test Item Value Reference Range Interpretation Comments Hep B Core Ab (test Negative *NA*(04/06/18 code = Hep B Core Ab) 8:50 AM) [facility] TylerUnewwewNIAECUTRHY0256-35-97 14:50:00 Test Item Value Reference Range Interpretation Comments HIV Ag/Ab 4th Gen Negative *NA*(04/06/18 (test code = HIV 8:50 AM) Ag/Ab 4th Gen) [facility] TylerGofegbyBZUHJSWVBN6837-04-87 14:50:00 Test Item Value Reference Range Interpretation [...] and concur with the resident's interpretation. CPT 14221-FZ [facility] TylerMfqjracJJZTBUIAPL6042-85-18 14:50:00 Test Item Value Reference Range Interpretation Comments KAREN Ser Pattern A distinct monoclonal (test code = KAREN Ser band is present in the Pattern) IgM izabella with a corresponding faint band in the kappa light chain izabella. The polyclonal gamma globulin background is preserved in all lanes. [facility] McallenJpobirxMRWZRCFOOG1904-08-82 14:50:00 Test Item Value Reference Range Interpretation Comments CMV IgG (test code = Reactive *ABN*(04/06/18 CMV IgG) 8:50 AM) [facility] McallenQmusfbtIJPGZNZYWO4155-11-86 14:50:00 Test Item Value Reference Range Interpretation Comments CMV IgM (test code = CMV IgM) 0.3 [facility] BnfryeoDVHDND2956-11-98 14:50:00 Test Item Value Reference Range Interpretation Comments VLDL (test code = VLDL) 36 1 [facility] McallenPbyxcxfMWMDHW6829-95-00 14:50:00 Test Item Value Reference Range Interpretation Comments LDL (Calculated) (test code = LDL 132 (Calculated)) [facility] McallenJhetjcuLJWWPF7385-45-22 14:50:00 Test Item Value Reference Range Interpretation Comments Chol (test code = Chol) 199 [facility] MdtzrqkBQCZIQ1475-51-18 14:50:00 Test Item Value Reference Range Interpretation Comments Trig (test code = Trig) 182 [facility] JwojtrbSZMWWS6728-24-38 14:50:00 Test Item Value Reference Range Interpretation Comments HDL (test code = HDL) 31 [facility] JhrrldzWLSLZC2445-78-55 14:50:00 Test Item Value Reference Range Interpretation Comments CHD Risk (test code = CHD Risk) 6.42 1 4.00-7.30 [facility]annMOLECULAR WSNIWOTMGS6951-42-57 14:50:00 Test Item Value Reference Range Interpretation Comments HBV DNA Log10 (test code = HBV DNA no gt Log10) [facility]annMOLECULAR XVOHTZOQSD5952-87-82 14:50:00 Test Item Value Reference Range Interpretation Comments Hep B PCR Qnt (test Not Detected (04/06/18 code = Hep B PCR Qnt) 8:50 AM) [facility]annPARASITOLOGY - VUXQRZBG5635-68-39 14:50:00 Test Item Value Reference Range Interpretation Comments Strongyloides Antibodies (test code Negative = Strongyloides Antibodies) [facility]PARATHYROID ULIXVCZ8581-71-70 14:50:00 Test Item Value Reference Range Interpretation Comments PTH Intact (test code = PTH Intact) 180.7 18.4-80.1 [facility]2019-02-05 14:50:00 Test Item Value Reference Range Interpretation Comments Hgb A1C (test code = Hgb A1C) 6.5 [facility]2019-02-05 14:50:00 Test Item Value Reference Range Interpretation Comments PSA (test code = PSA) 1.00 See_Comment [Auto mated message] The system which ge nerated this result transmit nicko reference range : <=4.00. The reference r carlos was not used to interpr et this result as adebayo l/abnormal. [facility]2019-02-05 14:50:00 Test Item Value Reference Range Interpretation Comments Nicotine Lvl (test code = None Detected Nicotine Lvl) [facility]2019-02-05 14:50:00 Test Item Value Reference Range Interpretation Comments Cotinine Lvl (test code = None Detected Cotinine Lvl) [facility] AND [id number] 14:50:00 Test Item Value Reference Range Interpretation Comments UA Urobilinogen (test code = UA <=1.0 mg/dL 0.1-1.0 Urobilinogen) [facility] AND [id number] 14:50:00 Test Item Value Reference Range Interpretation Comments UA Sq Epi (test code = UA Sq Epi) None Seen [facility] AND [id number] 14:50:00 Test Item Value Reference Range Interpretation Comments UA Turbidity (test code = Clear (04/06/18 8:50 UA Turbidity) AM) [facility] AND [id number] 14:50:00 Test Item Value Reference Range Interpretation Comments UA Color (test code = Yellow *NA*(04/06/18 8:50 UA Color) AM) [facility] AND [id number] 14:50:00 Test Item Value Reference Range Interpretation Comments UA pH (test code = UA pH) 5.5 1 5.0-8.0 [facility] AND [id number] 14:50:00 Test Item Value Reference Range Interpretation Comments UA Spec Grav (test code = UA Spec 1.009 1 Grav) [facility] AND [id number] 14:50:00 Test Item Value Reference Range Interpretation Comments UA WBC (test code = 1 See_Comment [Automa nicko message] The UA WBC) system which ge nerated this result transmit nicko reference range : <=5. The reference range was not used to interpr et this result as adebayo l/abnormal. [facility] AND [id number] 14:50:00 Test Item Value Reference Range Interpretation Comments UA Leuk Est (test Negative (04/06/18 8:50 code = UA Leuk Est) AM) [facility] AND [id number] 14:50:00 Test Item Value Reference Range Interpretation Comments UA Nitrite (test code Negative (04/06/18 8:50 = UA Nitrite) AM) [facility] AND [id number] 14:50:00 Test Item Value Reference Range Interpretation Comments UA Ketones (test code = UA Negative mg/dL Ketones) [facility] AND [id number] 14:50:00 Test Item Value Reference Range Interpretation Comments UA Glucose (test code = UA Negative mg/dL Glucose) [facility] AND RVAFI6826-03-85 14:50:00 Test Item Value Reference Range Interpretation Comments UA Protein (test code = UA Protein) 100 mg/dL [facility] AND [id number] 14:50:00 Test Item Value Reference Range Interpretation Comments UA Blood (test code = Trace *ABN*(04/06/18 UA Blood) 8:50 AM) [facility] AND [id number] 14:50:00 Test Item Value Reference Range Interpretation Comments UA Bili (test code = Negative *NA*(04/06/18 UA Bili) 8:50 AM) [facility]2019-02-05 14:50:00 Test Item Value Reference Range Interpretation Comments U Microalb (test code = U Microalb) 638.0 [facility]2019-02-05 14:50:00 Test Item Value Reference Range Interpretation Comments U Protein (test code = U Protein) 117.7 [facility]2019-02-05 14:50:00 Test Item Value Reference Range Interpretation Comments U Prot/Creat (test code = U 0.78 1 Prot/Creat) [facility]2019-02-05 14:50:00 Test Item Value Reference Range Interpretation Comments U Creatinine (test code = U 151.00 Creatinine) [facility] [id number] 14:50:00 Test Item Value Reference Range Interpretation Comments Ferritin Lvl (test code = Ferritin Lvl) 213 22-275 [facility]2019-02-05 14:50:00 Test Item Value Reference Range Interpretation Comments UIBC (test code = UIBC) 261 110-370 [facility]2019-02-05 14:50:00 Test Item Value Reference Range Interpretation Comments % Satur Fe (test code = % Satur Fe) 15 12-57 [facility] [id number] 14:50:00 Test Item Value Reference Range Interpretation Comments Iron (test code = Iron) 46 45-160 [facility]2019-02-05 14:50:00 Test Item Value Reference Range Interpretation Comments TIBC (test code = TIBC) 307 228-428 [facility] [id number] 14:50:00 Test Item Value Reference Range Interpretation Comments OP ABORh Int (test code = OP ABORh Int) O POS [facility]2019-02-05 14:50:00 Test Item Value Reference Range Interpretation Comments Vitamin D, 25-OH, Total (test code = 36.8 30.0-100.0 Vitamin D, 25-OH, Total) [facility] [id number] 14:50:00 Test Item Value Reference Range Interpretation Comments Uric Acid (test code = Uric Acid) 7.3 3.8-8.0 [facility] [id number] 14:50:00 Test Item Value Reference Range Interpretation Comments Phosphorus (test code = Phosphorus) 3.4 2.5-4.5 [facility]2019-02-05 14:50:00 Test Item Value Reference Range Interpretation Comments Magnesium Lvl (test code = Magnesium 2.0 1.8-2.4 Lvl) [facility]2019-02-05 14:50:00 Test Item Value Reference Range Interpretation Comments C-Peptide (test code = C-Peptide) 8.17 0.48-5.05 [facility]2019-02-05 14:50:00 Test Item Value Reference Range Interpretation Comments A/G Ratio (test code = A/G Ratio) 0.9 1 0.7-1.6 [place] [id number] 14:50:00 Test Item Value Reference Range Interpretation Comments B/C Ratio (test code = B/C Ratio) 9 1 6-25 [facility]2019-02-05 14:50:00 Test Item Value Reference Range Interpretation Comments AGAP (test code = AGAP) 12.4 10.0-20.0 [facility]2019-02-05 14:50:00 Test Item Value Reference Range Interpretation Comments Globulin (test code = Globulin) 4.2 2.7-4.2 [facility]2019-02-05 14:50:00 Test Item Value Reference Range Interpretation Comments eGFR (test code = eGFR) 14 [facility]2019-02-05 14:50:00 Test Item Value Reference Range Interpretation Comments ALT (test code = ALT) 12 See_Comment [Auto mated message] The system which ge nerated this result transmit nicko reference range : <=65. The reference range was not used to interpr et this result as adebayo l/abnormal. [facility]2019-02-05 14:50:00 Test Item Value Reference Range Interpretation Comments Alk Phos (test code = Alk Phos) 70 39-136 [facility]2019-02-05 14:50:00 Test Item Value Reference Range Interpretation Comments AST (test code = AST) 8 See_Comment [Auto mated message] The system which ge nerated this result transmit nicko reference range : <=37. The reference range was not used to interpr et this result as adebayo l/abnormal. [facility]2019-02-05 14:50:00 Test Item Value Reference Range Interpretation Comments Albumin Lvl (test code = Albumin Lvl) 3.7 3.5-5.0 [facility]2019-02-05 14:50:00 Test Item Value Reference Range Interpretation Comments Bili Total (test code = Bili Total) 0.3 0.2-1.3 [facility]2019-02-05 14:50:00 Test Item Value Reference Range Interpretation Comments Glucose Lvl (test code = Glucose Lvl) 83 70-99 [facility]2019-02-05 14:50:00 Test Item Value Reference Range Interpretation Comments Sodium Lvl (test code = Sodium Lvl) 137 135-145 [facility]2019-02-05 14:50:00 Test Item Value Reference Range Interpretation Comments BUN (test code = BUN) 35 7-22 [facility]2019-02-05 14:50:00 Test Item Value Reference Range Interpretation Comments Creatinine Lvl (test code = Creatinine 4.10 0.50-1.40 Lvl) [facility]2019-02-05 14:50:00 Test Item Value Reference Range Interpretation Comments CO2 (test code = CO2) 25 24-32 [facility]2019-02-05 14:50:00 Test Item Value Reference Range Interpretation Comments Calcium Lvl (test code = Calcium Lvl) 9.7 8.5-10.5 [facility]2019-02-05 14:50:00 Test Item Value Reference Range Interpretation Comments Potassium Lvl (test code = Potassium 4.4 3.5-5.1 Lvl) [facility]2019-02-05 14:50:00 Test Item Value Reference Range Interpretation Comments Chloride Lvl (test code = Chloride Lvl) 104 95-109 [facility]2019-02-05 14:50:00 Test Item Value Reference Range Interpretation Comments Total Protein (test code = Total 7.9 6.4-8.4 Protein) [facility]2019-02-05 14:50:00 Test Item Value Reference Range Interpretation Comments Opiate Qnt (test code = Opiate Qnt) Negative [facility]2019-02-05 14:50:00 Test Item Value Reference Range Interpretation Comments Phencyclidine Scr (test code = Negative Phencyclidine Scr) [facility]2019-02-05 14:50:00 Test Item Value Reference Range Interpretation Comments Kaitlin Scr (test code = Kaitlin Scr) Negative [facility]2019-02-05 14:50:00 Test Item Value Reference Range Interpretation Comments Methadone Scr (test code = Methadone Negative Scr) [facility]2019-02-05 14:50:00 Test Item Value Reference Range Interpretation Comments Cocaine Scr (test code = Cocaine Negative Scr) [facility]2019-02-05 14:50:00 Test Item Value Reference Range Interpretation Comments Cannab Scr (test code = Cannab Scr) Negative [facility]2019-02-05 14:50:00 Test Item Value Reference Range Interpretation Comments Amph Scr (test code = Amph Scr) Negative [facility] [id number] 14:50:00 Test Item Value Reference Range Interpretation Comments Opiate Scr (test code = Opiate Scr) Positive [facility] [id number] 14:50:00 Test Item Value Reference Range Interpretation Comments 6-Acetylmor Scr (test code = Negative 6-Acetylmor Scr) [facility]2019-02-05 14:50:00 Test Item Value Reference Range Interpretation Comments Benzodiaz Scr (test code = Benzodiaz Negative Scr) [facility] HospitalFxwaugbWZHNNXGRQL6956-49-04 14:50:00 Test Item Value Reference Range Interpretation Comments Basophils # (test code 0.1 See_Comment [Aut omated message] The = Basophils #) system which generated this result tra nsmitted reference range : <=0.2. The reference r carlos was not used to int erpret this result as normal/abnormal . [facility] HospitalSmoqmluFXWPXJCOAK2517-06-37 14:50:00 Test Item Value Reference Range Interpretation Comments Segs (test code = Segs) 68.2 45.0-75.[address] [facility] HospitalIdnuhjjFVUIOHPSAT6017-38-27 14:50:00 Test Item Value Reference Range Interpretation Comments Lymphocytes (test code = Lymphocytes) 20.5 20.0-40.[address] [facility] HospitalEohblqsQMOLEBBRLL6539-63-25 14:50:00 Test Item Value Reference Range Interpretation Comments Neutrophils # (test code = Neutrophils 6.0 1.5-8.1 #) [facility] HospitalGymehsrRLGEPWWTVR1246-58-44 14:50:00 Test Item Value Reference Range Interpretation Comments Basophils (test code = 0.6 See_Comment [Aut omated message] The Basophils) system which ge nerated this result tra nsmitted reference range : <=1.0. The reference r carlos was not used to int erpret this result as normal/abnormal . [facility] HospitalTyrgkvyVAEGFYCAOH1504-98-08 14:50:00 Test Item Value Reference Range Interpretation Comments Lymphocytes # (test code = Lymphocytes 1.8 1.0-5.5 #) [facility] HospitalTdhhhxjGBDNLWYRPF0105-12-02 14:50:00 Test Item Value Reference Range Interpretation Comments Eosinophils (test code = 3.2 See_Comment [A utomated message] The Eosinophils) system which ge nerated this result tra nsmitted reference range : <=4.0. The reference r carlos was not used to int erpret this result as normal/abnormal . [facility] HospitalEkardrkRSNZXPWXMA2032-82-75 14:50:00 Test Item Value Reference Range Interpretation Comments Monocytes (test code = Monocytes) 7.5 2.0-12.[address] [facility] HospitalImiarohKZMXCMRCJA6314-53-79 14:50:00 Test Item Value Reference Range Interpretation Comments Eosinophils # (test code 0.3 See_Comment [A utomated message] The = Eosinophils #) system whic h generated this result tra nsmitted reference range : <=0.5. The reference r carlos was not used to int erpret this result as normal/abnormal . [facility] HospitalYfnjkvmINDCCJVWEI8415-11-07 14:50:00 Test Item Value Reference Range Interpretation Comments Monocytes # (test code 0.7 See_Comment [Aut omated message] The = Monocytes #) system which generated this result tra nsmitted reference range : <=0.8. The reference r carlos was not used to int erpret this result as normal/abnormal . [facility] HospitalLqveknqHJAKUBMMBX4566-71-29 14:50:00 Test Item Value Reference Range Interpretation Comments Hgb (test code = Hgb) 13.3 14.0-18.[address] [facility] HospitalRtnuhbxPDXLHMSMPD3450-84-62 14:50:00 Test Item Value Reference Range Interpretation Comments Hct (test code = Hct) 41.1 42.0-54.[address] [facility] HospitalSqgymrwXCOUTFAKBZ5886-80-66 14:50:00 Test Item Value Reference Range Interpretation Comments MCV (test code = MCV) 88.4 80.0-94.[address] [facility] HospitalPichgjlWQXOYWVAMX2138-33-61 14:50:00 Test Item Value Reference Range Interpretation Comments MCH (test code = MCH) 28.7 pg 27.0-31.[address] [facility] [facility] HospitalLmroojvVYTXKPXNUF5483-25-11 14:50:00 Test Item Value Reference Range Interpretation Comments RBC (test code = RBC) 4.65 4.70-6.[address] [facility] HospitalFzrgvxtIPPXCSFWBY5173-40-38 14:50:00 Test Item Value Reference Range Interpretation Comments RDW (test code = RDW) 14.6 11.5-14.[address] [facility] HospitalVtyhllhJIDUEGHXSE2117-74-82 14:50:00 Test Item Value Reference Range Interpretation Comments MCHC (test code = MCHC) 32.5 32.0-36.[address] [facility] [facility] HospitalJfwzyomBUITGKJBGI4348-57-96 14:50:00 Test Item Value Reference Range Interpretation Comments Platelet (test code = Platelet) 238 133-[address] [facility] HospitalTnnlxngWYNMPDDXYD6410-79-51 14:50:00 Test Item Value Reference Range Interpretation Comments MPV (test code = MPV) 9.0 7.4-10.[address] [facility] HospitalKzfputzOZLYKTUZWT3458-90-98 14:50:00 Test Item Value Reference Range Interpretation Comments WBC (test code = WBC) 8.8 3.7-10.[address] [facility] [facility] HospitalDxmocfwNFCYEZOMUG8813-35-97 14:50:00 Test Item Value Reference Range Interpretation Comments INR (test code = INR) 0.96 1 0.85-1.[address] [facility] [facility] HospitalZmucnhhLKJULLQDBJ2910-37-50 14:50:00 Test Item Value Reference Range Interpretation Comments PT (test code = PT) 12.6 s 12.0-14.[address] [facility] [facility] HospitalSkfwlbtPCIAIRICZV8072-99-49 14:50:00 Test Item Value Reference Range Interpretation Comments PTT (test code = PTT) 34.7 s 22.9-35.8 [facility]ZZNSOWLWDS3259[facility]28-27 14:50:00 Test Item Value Reference Range Interpretation Comments Treponemal Ab (test code Non-Reactive = Treponemal Ab) *NA*(04/06/18 8:50 AM) [facility] TylerSuysvgbHLPHGZLBKG2846-76-16 14:50:00 Test Item Value Reference Range Interpretation Comments Varicella IgM (test no gt See_Comment [Automa nicko message] The code = Varicella IgM) system which generated this result tra nsmitted reference range : <=0.90. The reference r carlos was not used to int erpret this result as normal/abnormal . [facility] TylerAcnktyyGEHRTWKKUY2377-46-23 14:50:00 Test Item Value Reference Range Interpretation Comments Varicella IgG (test code = Varicella no gt IgG) [facility] TylerNjoixliRFSRGNKOUL5030-55-58 14:50:00 Test Item Value Reference Range Interpretation Comments Hep Bs Ag (test code Negative *NA*(04/06/18 = Hep Bs Ag) 8:50 AM) [facility] TylerYruaaqzSYLRPZYKND1233-22-99 14:50:00 Test Item Value Reference Range Interpretation Comments HSV 1 IgG (test code = HSV 1 IgG) no gt [facility] TylerKqbaswmCCCJMOMPLF0406-28-46 14:50:00 Test Item Value Reference Range Interpretation Comments HSV 2 IgG (test code = HSV 2 IgG) no gt [facility] TylerFgqueisLVKMVJBAPI1743-52-18 14:50:00 Test Item Value Reference Range Interpretation Comments Lambda Free Light Chains (test code = 66.41 5.70-26.30 Lambda Free Light Chains) [facility] TylerPlffkhbRGPZNSXICO9265-45-77 14:50:00 Test Item Value Reference Range Interpretation Comments Rennert/Lambda Free Light Chains Ratio 1.66 0.26-1.65 (test code = Rennert/Lambda Free Light Chains Ratio) [facility] TylerDjtkqtoDLCNJUAKMQ1708-47-52 14:50:00 Test Item Value Reference Range Interpretation Comments Rennert Free Light Chains (test code = 110.34 3.30-19.40 Rennert Free Light Chains) [facility] TylerOjldcztYXVGDVDWCJ0922-92-09 14:50:00 Test Item Value Reference Range Interpretation Comments Hep C Ab (test code = Negative *NA*(04/06/18 Hep C Ab) 8:50 AM) [facility] TylerLkmsjlcGOGWKIOVHQ9878-08-52 14:50:00 Test Item Value Reference Range Interpretation Comments T-Spot.TB (test code Negative (04/06/18 8:50 = T-Spot.TB) AM) [facility] TylerEwtzqkwDRXNTPARNU5187-87-78 14:50:00 Test Item Value Reference Range Interpretation [...] and concur with the resident's interpretation. CPT 89166-PP [facility] TylerUjbgkyxHUFRERKHIV2196-04-25 14:50:00 Test Item Value Reference Range Interpretation Comments Beta Glob (test code = Beta Glob) 0.99 0.50-1.15 [facility] TylerKbjedlgCMPFWKFEQE8282-46-06 14:50:00 Test Item Value Reference Range Interpretation Comments Gamma Glob (test code = Gamma Glob) 1.28 0.71-1.57 [facility] TylerQebaebeITPXWVTAZH3730-73-33 14:50:00 Test Item Value Reference Range Interpretation Comments Tot Prot (SPE) (test code = Tot Prot 7.9 6.4-8.4 (SPE)) [facility] TylerUlrrwrdHTPMUTZKLU9179-86-75 14:50:00 Test Item Value Reference Range Interpretation Comments Albumin (SPE) (test code = Albumin 4.25 3.57-5.55 (SPE)) [facility] TylerPhxhszhYZAUXKQXBK7138-19-14 14:50:00 Test Item Value Reference Range Interpretation Comments Gamma % (test code = Gamma %) 16.2 11.1-18.7 [facility] TylerOxmzjwqQYQBEXGQMM9424-26-12 14:50:00 Test Item Value Reference Range Interpretation Comments Alpha 1 Glob (test code = Alpha 1 Glob) 0.43 0.18-0.41 [facility] TylerMselwxcLWFOVKODAM2417-77-63 14:50:00 Test Item Value Reference Range Interpretation Comments Alpha 2 Glob (test code = Alpha 2 Glob) 0.96 0.45-1.00 [facility] TylerYwyzztlIKBUNLOTKN2940-14-33 14:50:00 Test Item Value Reference Range Interpretation Comments Alpha 1 % (test code = Alpha 1 %) 5.4 2.8-4.9 [facility] TylerQwkjjtaPMTZETCXMS5487-77-68 14:50:00 Test Item Value Reference Range Interpretation Comments Albumin % (test code = Albumin %) 53.8 55.8-66.1 [facility] TylerBuuxigkZQYORNDJPD9308-84-76 14:50:00 Test Item Value Reference Range Interpretation Comments Beta % (test code = Beta %) 12.5 7.8-13.7 [facility] TylerStsnxhgTDQBJSYCQC1768-69-06 14:50:00 Test Item Value Reference Range Interpretation Comments Alpha 2 % (test code = Alpha 2 %) 12.1 7.0-11.9 [facility] TylerWjlitouWGPCBXKLEV2559-23-05 14:50:00 Test Item Value Reference Range Interpretation Comments EBV VCA IgM (test code = EBV VCA IgM) no gt [facility] TylerWdpreerVZABNOHLMF4584-49-14 14:50:00 Test Item Value Reference Range Interpretation Comments EBV VCA IgG (test code = EBV VCA IgG) no gt [facility] TylerTjeuwraMYSOPBUJPU0497-43-59 14:50:00 Test Item Value Reference Range Interpretation Comments Hep Bs Ab (test code = Hep Bs Ab) 5.2 [facility] CenterWtazfykXQQJIGWBWX1966-88-85 14:50:00 Test Item Value Reference Range Interpretation Comments Hep B Core Ab (test Negative *NA*(04/06/18 code = Hep B Core Ab) 8:50 AM) [facility] CenterAggncdmBUOIWCKLII1758-85-20 14:50:00 Test Item Value Reference Range Interpretation Comments HIV Ag/Ab 4th Gen Negative *NA*(04/06/18 (test code = HIV 8:50 AM) Ag/Ab 4th Gen) [facility] CenterUqjrhuaOZXVFOEMIR4250-36-99 14:50:00 Test Item Value Reference Range Interpretation [...] and concur with the resident's interpretation. CPT 59727-UF [facility] CenterCusteatTUNOVLIOUG4352-02-45 14:50:00 Test Item Value Reference Range Interpretation Comments KAREN Ser Pattern A distinct monoclonal (test code = KAREN Ser band is present in the Pattern) IgM izabella with a corresponding faint band in the kappa light chain izabella. The polyclonal gamma globulin background is preserved in all lanes. [facility] CenterJifvjsqMTDLFLYTDR9077-95-06 14:50:00 Test Item Value Reference Range Interpretation Comments CMV IgG (test code = Reactive *ABN*(04/06/18 CMV IgG) 8:50 AM) [facility] CenterOrkzdvwTOAVWWASOI3413-14-98 14:50:00 Test Item Value Reference Range Interpretation Comments CMV IgM (test code = CMV IgM) 0.3 [facility]IptvsvxVKYVUG6683-18-60 14:50:00 Test Item Value Reference Range Interpretation Comments VLDL (test code = VLDL) 36 1 [facility]enAnedngaHJGBSI2872-66-41 14:50:00 Test Item Value Reference Range Interpretation Comments LDL (Calculated) (test code = LDL 132 (Calculated)) [facility] CenterYkotbciLITWJQ3842-27-54 14:50:00 Test Item Value Reference Range Interpretation Comments Chol (test code = Chol) 199 [facility] CenterYclemoeIILOUH1773-32-02 14:50:00 Test Item Value Reference Range Interpretation Comments Trig (test code = Trig) 182 [facility] CenterHdxslayADWVCD6110-86-12 14:50:00 Test Item Value Reference Range Interpretation Comments HDL (test code = HDL) 31 [facility] CenterWhxhovaAMCRWX4259-43-94 14:50:00 Test Item Value Reference Range Interpretation Comments CHD Risk (test code = CHD Risk) 6.42 1 4.00-7.30 [facility] TRTIJYKUUZ3235-55-08 14:50:00 Test Item Value Reference Range Interpretation Comments HBV DNA Log10 (test code = HBV DNA no gt Log10) [facility] YIVYHHEUBS5632-32-51 14:50:00 Test Item Value Reference Range Interpretation Comments Hep B PCR Qnt (test Not Detected (04/06/18 code = Hep B PCR Qnt) 8:50 AM) [facility]PAR[facility] - [id number] 14:50:00 Test Item Value Reference Range Interpretation Comments Strongyloides Antibodies (test code Negative = Strongyloides Antibodies) [facility] CenterPARATHYROID YKLXQBV3309-96-57 14:50:00 Test Item Value Reference Range Interpretation Comments PTH Intact (test code = PTH Intact) 180.7 18.4-80.1 [facility] FNUDJCKBG8311-75-62 14:50:00 Test Item Value Reference Range Interpretation Comments Hgb A1C (test code = Hgb A1C) 6.5 [facility] RMYLLQNDG4524-15-74 14:50:00 Test Item Value Reference Range Interpretation Comments PSA (test code = PSA) 1.00 See_Comment [Auto mated message] The system which ge nerated this result transmit nicko reference range : <=4.00. The reference r carlos was not used to interpr et this result as adebayo l/abnormal. [facility] OPRMJTZGB9457-33-64 14:50:00 Test Item Value Reference Range Interpretation Comments Nicotine Lvl (test code = None Detected Nicotine Lvl) [facility] MVKEEUBYF7486-84-06 14:50:00 Test Item Value Reference Range Interpretation Comments Cotinine Lvl (test code = None Detected Cotinine Lvl) [facility] MHZZJ4341-04-90 14:50:00 Test Item Value Reference Range Interpretation Comments UA Urobilinogen (test code = UA <=1.0 mg/dL 0.1-1.0 Urobilinogen) [facility] AND [id number] 14:50:00 Test Item Value Reference Range Interpretation Comments UA Sq Epi (test code = UA Sq Epi) None Seen [facility] AND [id number] 14:50:00 Test Item Value Reference Range Interpretation Comments UA Turbidity (test code = Clear (04/06/18 8:50 UA Turbidity) AM) [facility] AND FQXOE6401-19-07 14:50:00 Test Item Value Reference Range Interpretation Comments UA Color (test code = Yellow *NA*(04/06/18 8:50 UA Color) AM) [facility] AND [id number] 14:50:00 Test Item Value Reference Range Interpretation Comments UA pH (test code = UA pH) 5.5 1 5.0-8.0 [facility] AND [id number] 14:50:00 Test Item Value Reference Range Interpretation Comments UA Spec Grav (test code = UA Spec 1.009 1 Grav) [facility] AND [id number] 14:50:00 Test Item Value Reference Range Interpretation Comments UA WBC (test code = 1 See_Comment [Automa nicko message] The UA WBC) system which ge nerated this result transmit nicko reference range : <=5. The reference range was not used to interpr et this result as adebayo l/abnormal. [facility] AND [id number] 14:50:00 Test Item Value Reference Range Interpretation Comments UA Leuk Est (test Negative (04/06/18 8:50 code = UA Leuk Est) AM) [facility] AND [id number] 14:50:00 Test Item Value Reference Range Interpretation Comments UA Nitrite (test code Negative (04/06/18 8:50 = UA Nitrite) AM) [facility] AND [id number] 14:50:00 Test Item Value Reference Range Interpretation Comments UA Ketones (test code = UA Negative mg/dL Ketones) [facility] AND [id number] 14:50:00 Test Item Value Reference Range Interpretation Comments UA Glucose (test code = UA Negative mg/dL Glucose) [facility] AND [id number] 14:50:00 Test Item Value Reference Range Interpretation Comments UA Protein (test code = UA Protein) 100 mg/dL [facility] AND [id number] 14:50:00 Test Item Value Reference Range Interpretation Comments UA Blood (test code = Trace *ABN*(04/06/18 UA Blood) 8:50 AM) [facility] AND [id number] 14:50:00 Test Item Value Reference Range Interpretation Comments UA Bili (test code = Negative *NA*(04/06/18 UA Bili) 8:50 AM) [facility]2019-02-05 14:50:00 Test Item Value Reference Range Interpretation Comments U Microalb (test code = U Microalb) 638.0 [facility]2019-02-05 14:50:00 Test Item Value Reference Range Interpretation Comments U Protein (test code = U Protein) 117.7 [facility]2019-02-05 14:50:00 Test Item Value Reference Range Interpretation Comments U Prot/Creat (test code = U 0.78 1 Prot/Creat) [facility]2019-02-05 14:50:00 Test Item Value Reference Range Interpretation Comments U Creatinine (test code = U 151.00 Creatinine) [facility] [id number] 14:50:00 Test Item Value Reference Range Interpretation Comments Ferritin Lvl (test code = Ferritin Lvl) 213 22-275 [facility] [id number] 14:50:00 Test Item Value Reference Range Interpretation Comments UIBC (test code = UIBC) 261 110-370 [facility] VGEYM8196-07-02 14:50:00 Test Item Value Reference Range Interpretation Comments % Satur Fe (test code = % Satur Fe) 15 12-57 [facility] [id number] 14:50:00 Test Item Value Reference Range Interpretation Comments Iron (test code = Iron) 46 45-160 [facility] [id number] 14:50:00 Test Item Value Reference Range Interpretation Comments TIBC (test code = TIBC) 307 228-428 [facility] BANK [id number] 14:50:00 Test Item Value Reference Range Interpretation Comments OP ABORh Int (test code = OP ABORh Int) O POS [facility]2019-02-05 14:50:00 Test Item Value Reference Range Interpretation Comments Vitamin D, 25-OH, Total (test code = 36.8 30.0-100.0 Vitamin D, 25-OH, Total) [facility]2019-02-05 14:50:00 Test Item Value Reference Range Interpretation Comments Uric Acid (test code = Uric Acid) 7.3 3.8-8.0 [facility]2019-02-05 14:50:00 Test Item Value Reference Range Interpretation Comments Phosphorus (test code = Phosphorus) 3.4 2.5-4.5 [facility]2019-02-05 14:50:00 Test Item Value Reference Range Interpretation Comments Magnesium Lvl (test code = Magnesium 2.0 1.8-2.4 Lvl) [facility]2019-02-05 14:50:00 Test Item Value Reference Range Interpretation Comments C-Peptide (test code = C-Peptide) 8.17 0.48-5.05 [facility]2019-02-05 14:50:00 Test Item Value Reference Range Interpretation Comments A/G Ratio (test code = A/G Ratio) 0.9 1 0.7-1.6 [facility]2019-02-05 14:50:00 Test Item Value Reference Range Interpretation Comments B/C Ratio (test code = B/C Ratio) 9 1 6-25 [facility]2019-02-05 14:50:00 Test Item Value Reference Range Interpretation Comments AGAP (test code = AGAP) 12.4 10.0-20.0 [facility]2019-02-05 14:50:00 Test Item Value Reference Range Interpretation Comments Globulin (test code = Globulin) 4.2 2.7-4.2 [facility]2019-02-05 14:50:00 Test Item Value Reference Range Interpretation Comments eGFR (test code = eGFR) 14 [facility]2019-02-05 14:50:00 Test Item Value Reference Range Interpretation Comments ALT (test code = ALT) 12 See_Comment [Auto mated message] The system which ge nerated this result transmit nicko reference range : <=65. The reference range was not used to interpr et this result as adebayo l/abnormal. [facility]2019-02-05 14:50:00 Test Item Value Reference Range Interpretation Comments Alk Phos (test code = Alk Phos) 70 39-136 [facility]2019-02-05 14:50:00 Test Item Value Reference Range Interpretation Comments AST (test code = AST) 8 See_Comment [Auto mated message] The system which ge nerated this result transmit nicko reference range : <=37. The reference range was not used to interpr et this result as adebayo l/abnormal. [facility]2019-02-05 14:50:00 Test Item Value Reference Range Interpretation Comments Albumin Lvl (test code = Albumin Lvl) 3.7 3.5-5.0 [facility]2019-02-05 14:50:00 Test Item Value Reference Range Interpretation Comments Bili Total (test code = Bili Total) 0.3 0.2-1.3 [facility]2019-02-05 14:50:00 Test Item Value Reference Range Interpretation Comments Glucose Lvl (test code = Glucose Lvl) 83 70-99 [facility]2019-02-05 14:50:00 Test Item Value Reference Range Interpretation Comments Sodium Lvl (test code = Sodium Lvl) 137 135-145 [facility]2019-02-05 14:50:00 Test Item Value Reference Range Interpretation Comments BUN (test code = BUN) 35 7-22 [facility]2019-02-05 14:50:00 Test Item Value Reference Range Interpretation Comments Creatinine Lvl (test code = Creatinine 4.10 0.50-1.40 Lvl) [facility]2019-02-05 14:50:00 Test Item Value Reference Range Interpretation Comments CO2 (test code = CO2) 25 24-32 [facility]2019-02-05 14:50:00 Test Item Value Reference Range Interpretation Comments Calcium Lvl (test code = Calcium Lvl) 9.7 8.5-10.5 [facility]2019-02-05 14:50:00 Test Item Value Reference Range Interpretation Comments Potassium Lvl (test code = Potassium 4.4 3.5-5.1 Lvl) [facility]2019-02-05 14:50:00 Test Item Value Reference Range Interpretation Comments Chloride Lvl (test code = Chloride Lvl) 104 95-109 [facility] [id number] 14:50:00 Test Item Value Reference Range Interpretation Comments Total Protein (test code = Total 7.9 6.4-8.4 Protein) [facility] [id number] 14:50:00 Test Item Value Reference Range Interpretation Comments Opiate Qnt (test code = Opiate Qnt) Negative [facility] [id number] 14:50:00 Test Item Value Reference Range Interpretation Comments Phencyclidine Scr (test code = Negative Phencyclidine Scr) [facility] [id number] 14:50:00 Test Item Value Reference Range Interpretation Comments Kaitlin Scr (test code = Kaitlin Scr) Negative [facility] [id number] 14:50:00 Test Item Value Reference Range Interpretation Comments Methadone Scr (test code = Methadone Negative Scr) [facility] [id number] 14:50:00 Test Item Value Reference Range Interpretation Comments Cocaine Scr (test code = Cocaine Negative Scr) [facility] [id number] 14:50:00 Test Item Value Reference Range Interpretation Comments Cannab Scr (test code = Cannab Scr) Negative [facility] [id number] 14:50:00 Test Item Value Reference Range Interpretation Comments Amph Scr (test code = Amph Scr) Negative [facility] [id number] 14:50:00 Test Item Value Reference Range Interpretation Comments Opiate Scr (test code = Opiate Scr) Positive [facility] [id number] 14:50:00 Test Item Value Reference Range Interpretation Comments 6-Acetylmor Scr (test code = Negative 6-Acetylmor Scr) [facility] [id number] 14:50:00 Test Item Value Reference Range Interpretation Comments Benzodiaz Scr (test code = Benzodiaz Negative Scr) [facility]enIiuhdwrZAIYEYVMSE0951-91-25 14:50:00 Test Item Value Reference Range Interpretation Comments Basophils # (test code 0.1 See_Comment [Aut omated message] The = Basophils #) system which generated this result tra nsmitted reference range : <=0.2. The reference r carlos was not used to int erpret this result as normal/abnormal . [facility]allenUgdsplcOAGJHHHUTN8830-61-65 14:50:00 Test Item Value Reference Range Interpretation Comments Segs (test code = Segs) 68.2 45.0-75.[address] [id number] 14:50:00 Test Item Value Reference Range Interpretation Comments Lymphocytes (test code = Lymphocytes) 20.5 20.0-40.[address] [facility] HospitalBtfenlyGQMVYMJCTK2118-47-43 14:50:00 Test Item Value Reference Range Interpretation Comments Neutrophils # (test code = Neutrophils 6.0 1.5-8.1 #) [facility] HospitalPkexkfyAPLYVNIINY9516-25-00 14:50:00 Test Item Value Reference Range Interpretation Comments Basophils (test code = 0.6 See_Comment [Aut omated message] The Basophils) system which ge nerated this result tra nsmitted reference range : <=1.0. The reference r carlos was not used to int erpret this result as normal/abnormal . [facility] HospitalOlffdxaMIWCPHVKCT7874-13-53 14:50:00 Test Item Value Reference Range Interpretation Comments Lymphocytes # (test code = Lymphocytes 1.8 1.0-5.5 #) [facility] H[id number] 14:50:00 Test Item Value Reference Range Interpretation Comments Eosinophils (test code = 3.2 See_Comment [A utomated message] The Eosinophils) system which ge nerated this result tra nsmitted reference range : <=4.0. The reference r carlos was not used to int erpret this result as normal/abnormal . [facility] HospitalJplnoufEARIRYCPNU6572-50-50 14:50:00 Test Item Value Reference Range Interpretation Comments Monocytes (test code = Monocytes) 7.5 2.0-12.[address] [facility] HospitalJluhzowOSXSRWGURV8790-97-27 14:50:00 Test Item Value Reference Range Interpretation Comments Eosinophils # (test code 0.3 See_Comment [A utomated message] The = Eosinophils #) system whic h generated this result tra nsmitted reference range : <=0.5. The reference r carlos was not used to int erpret this result as normal/abnormal . [facility] HospitalKfdmxvyLUXTNBCEFF1318-31-47 14:50:00 Test Item Value Reference Range Interpretation Comments Monocytes # (test code 0.7 See_Comment [Aut omated message] The = Monocytes #) system which generated this result tra nsmitted reference range : <=0.8. The reference r carlos was not used to int erpret this result as normal/abnormal . [facility] HospitalKxwemqcJBCCEUBMFR3376-90-75 14:50:00 Test Item Value Reference Range Interpretation Comments Hgb (test code = Hgb) 13.3 14.0-18.[address] [facility] HospitalSsjswuxOOLTKRUKRD6997-97-58 14:50:00 Test Item Value Reference Range Interpretation Comments Hct (test code = Hct) 41.1 42.0-54.[address] [facility] HospitalNiesjiwHEIPDWGPKA3929-91-72 14:50:00 Test Item Value Reference Range Interpretation Comments MCV (test code = MCV) 88.4 80.0-94.[address] [facility] HospitalLjtjglvHVLYWGAGBB9055-66-44 14:50:00 Test Item Value Reference Range Interpretation Comments MCH (test code = MCH) 28.7 pg 27.0-31.[address] [facility] HospitalCsrwdrnYPRQRJUZET9966-49-56 14:50:00 Test Item Value Reference Range Interpretation Comments RBC (test code = RBC) 4.65 4.70-6.[address] [facility] HospitalKvnhjzuHUKMJUPUAO6100-24-37 14:50:00 Test Item Value Reference Range Interpretation Comments RDW (test code = RDW) 14.6 11.5-14.[address] [facility] [facility] HospitalNigojkyDLQVENWIAG8285-58-12 14:50:00 Test Item Value Reference Range Interpretation Comments MCHC (test code = MCHC) 32.5 32.0-36.[address] [facility] HospitalKopehgyIHMVDOIOZP4542-53-86 14:50:00 Test Item Value Reference Range Interpretation Comments Platelet (test code = Platelet) 238 133-[address] [facility] HospitalOctsmwjDXOTWKHONR8255-14-48 14:50:00 Test Item Value Reference Range Interpretation Comments MPV (test code = MPV) 9.0 7.4-10.[address] [facility] HospitalYgodkixBHSTOILABV3113-48-29 14:50:00 Test Item Value Reference Range Interpretation Comments WBC (test code = WBC) 8.8 3.7-10.[address] [facility] [facility] HospitalGgnhyglJJNZKMPJUP3168-60-93 14:50:00 Test Item Value Reference Range Interpretation Comments INR (test code = INR) 0.96 1 0.85-1.[address] [facility] HospitalPnccrzlZDQDSTKIRG5177-64-61 14:50:00 Test Item Value Reference Range Interpretation Comments PT (test code = PT) 12.6 s 12.0-14.7 [facility]TnjmkbzCHNIUXKJFR5113-61-35 14:50:00 Test Item Value Reference Range Interpretation Comments PTT (test code = PTT) 34.7 s 22.9-35.8 [facility] CenterCzyfmypFJPADPHJUN3428-20-74 14:50:00 Test Item Value Reference Range Interpretation Comments Treponemal Ab (test code Non-Reactive = Treponemal Ab) *NA*(04/06/18 8:50 AM) [facility] CenterEpgvjtdKINEVPJZTH8844-86-55 14:50:00 Test Item Value Reference Range Interpretation Comments Varicella IgM (test no gt See_Comment [Automa nicko message] The code = Varicella IgM) system which generated this result tra nsmitted reference range : <=0.90. The reference r carlos was not used to int erpret this result as normal/abnormal . [facility] CenterKpsscmiWDSDSAXXKZ4779-69-10 14:50:00 Test Item Value Reference Range Interpretation Comments Varicella IgG (test code = Varicella no gt IgG) [facility] CenterMeeqfrmAHDHQQIJNS0687-50-14 14:50:00 Test Item Value Reference Range Interpretation Comments Hep Bs Ag (test code Negative *NA*(04/06/18 = Hep Bs Ag) 8:50 AM) [facility] CenterVkrrgypMVATIJTRCG2586-03-51 14:50:00 Test Item Value Reference Range Interpretation Comments HSV 1 IgG (test code = HSV 1 IgG) no gt [facility]enKilyaouCHYNZFJBKU5370-63-30 14:50:00 Test Item Value Reference Range Interpretation Comments HSV 2 IgG (test code = HSV 2 IgG) no gt [facility]enJlgmcwnRHQHCUMEGQ7014-05-52 14:50:00 Test Item Value Reference Range Interpretation Comments Lambda Free Light Chains (test code = 66.41 5.70-26.30 Lambda Free Light Chains) [facility] CenterAbrdlsoAZFRXZGXFY4355-11-32 14:50:00 Test Item Value Reference Range Interpretation Comments Rennert/Lambda Free Light Chains Ratio 1.66 0.26-1.65 (test code = Rennert/Lambda Free Light Chains Ratio) [facility] CenterAjxpwpyQPQRWYFYIP8014-25-54 14:50:00 Test Item Value Reference Range Interpretation Comments Rennert Free Light Chains (test code = 110.34 3.30-19.40 Rennert Free Light Chains) [facility] CenterVoioomxOKBTOCIIWG6968-87-12 14:50:00 Test Item Value Reference Range Interpretation Comments Hep C Ab (test code = Negative *NA*(04/06/18 Hep C Ab) 8:50 AM) [facility]ABIFULRMMA2852[facility]25-[facility] 14:50:00 Test Item Value Reference Range Interpretation Comments T-Spot.TB (test code Negative (04/06/18 8:50 = T-Spot.TB) AM) [facility] TylerCwhqekzHSWSWVHSAY1064-34-15 14:50:00 Test Item Value Reference Range Interpretation [...] and concur with the resident's interpretation. CPT 94185-XH [facility] TylerAgzofpsTZFCEMUARI0119-41-93 14:50:00 Test Item Value Reference Range Interpretation Comments Beta Glob (test code = Beta Glob) 0.99 0.50-1.15 [facility] TylerOwhduopRKQKSMMGCM9450-30-86 14:50:00 Test Item Value Reference Range Interpretation Comments Gamma Glob (test code = Gamma Glob) 1.28 0.71-1.57 [facility] TylerPxxuireAUDGRHEJQS9401-37-54 14:50:00 Test Item Value Reference Range Interpretation Comments Tot Prot (SPE) (test code = Tot Prot 7.9 6.4-8.4 (SPE)) [facility] TylerEokcxwiFUYNTPEVVQ0120-64-72 14:50:00 Test Item Value Reference Range Interpretation Comments Albumin (SPE) (test code = Albumin 4.25 3.57-5.55 (SPE)) [facility] TylerUwnueaqMAVPZXCPDH4961-49-17 14:50:00 Test Item Value Reference Range Interpretation Comments Gamma % (test code = Gamma %) 16.2 11.1-18.7 [facility] TylerYkijxmqILTKPXNZFO2807-27-07 14:50:00 Test Item Value Reference Range Interpretation Comments Alpha 1 Glob (test code = Alpha 1 Glob) 0.43 0.18-0.41 [facility] TylerAielpivZYLJMMGHGZ2904-95-39 14:50:00 Test Item Value Reference Range Interpretation Comments Alpha 2 Glob (test code = Alpha 2 Glob) 0.96 0.45-1.00 [facility] TylerWjojxvcCCASKMRTOP1802-82-43 14:50:00 Test Item Value Reference Range Interpretation Comments Alpha 1 % (test code = Alpha 1 %) 5.4 2.8-4.9 [facility] TylerZrumxgfBOQZHGMNRZ2637-67-98 14:50:00 Test Item Value Reference Range Interpretation Comments Albumin % (test code = Albumin %) 53.8 55.8-66.1 [facility] TylerKlghyqhWXUMETYNXM1242-00-05 14:50:00 Test Item Value Reference Range Interpretation Comments Beta % (test code = Beta %) 12.5 7.8-13.7 [facility] TylerUvieousYEMSARGPTM7347-85-90 14:50:00 Test Item Value Reference Range Interpretation Comments Alpha 2 % (test code = Alpha 2 %) 12.1 7.0-11.9 [facility] TylerFjwnbnrVEOJLCNTFF6122-91-84 14:50:00 Test Item Value Reference Range Interpretation Comments EBV VCA IgM (test code = EBV VCA IgM) no gt [facility] TylerOsyczmcIFONVZIFPD8413-63-37 14:50:00 Test Item Value Reference Range Interpretation Comments EBV VCA IgG (test code = EBV VCA IgG) no gt [facility] TylerByuyayqYRTIBOUMNY7323-46-23 14:50:00 Test Item Value Reference Range Interpretation Comments Hep Bs Ab (test code = Hep Bs Ab) 5.2 [facility] TylerJsrsdkmWQNRSYEITQ5132-23-60 14:50:00 Test Item Value Reference Range Interpretation Comments Hep B Core Ab (test Negative *NA*(04/06/18 code = Hep B Core Ab) 8:50 AM) [facility] TylerVlltozqICJIZDZNVI2021-85-06 14:50:00 Test Item Value Reference Range Interpretation Comments HIV Ag/Ab 4th Gen Negative *NA*(04/06/18 (test code = HIV 8:50 AM) Ag/Ab 4th Gen) [facility] TylerZyoaoowODYUGFYHQH9195-84-59 14:50:00 Test Item Value Reference Range Interpretation [...] and concur with the resident's interpretation. CPT 08232-SY [facility]enCefwlinLVKFWHWXYC6593-58-82 14:50:00 Test Item Value Reference Range Interpretation Comments KAREN Ser Pattern A distinct monoclonal (test code = KARNE Ser band is present in the Pattern) IgM izabella with a corresponding faint band in the kappa light chain izabella. The polyclonal gamma globulin background is preserved in all lanes. [facility]enFkducmiXHLTOHAXWG9326-03-60 14:50:00 Test Item Value Reference Range Interpretation Comments CMV IgG (test code = Reactive *ABN*(04/06/18 CMV IgG) 8:50 AM) [facility] McallenXyfyfreETNHEBYRPK5115-12-48 14:50:00 Test Item Value Reference Range Interpretation Comments CMV IgM (test code = CMV IgM) 0.3 [facility] McallenYxmaazzTEGTWW5808-44-38 14:50:00 Test Item Value Reference Range Interpretation Comments VLDL (test code = VLDL) 36 1 [facility] CenterMhgdxnfVWZWUF0513-39-04 14:50:00 Test Item Value Reference Range Interpretation Comments LDL (Calculated) (test code = LDL 132 (Calculated)) [facility] CenterNrxhbkiTDHUCH8644-90-81 14:50:00 Test Item Value Reference Range Interpretation Comments Chol (test code = Chol) 199 [facility] CenterBieznezXXFXUR6956-80-04 14:50:00 Test Item Value Reference Range Interpretation Comments Trig (test code = Trig) 182 [facility] CenterVtkxilmKSHKLN7326-45-94 14:50:00 Test Item Value Reference Range Interpretation Comments HDL (test code = HDL) 31 [facility] CenterEirogekERPZPH4820-82-26 14:50:00 Test Item Value Reference Range Interpretation Comments CHD Risk (test code = CHD Risk) 6.42 1 4.00-7.30 [facility] CenterMOLECULAR QODACSHJWR5589-91-13 14:50:00 Test Item Value Reference Range Interpretation Comments HBV DNA Log10 (test code = HBV DNA no gt Log10) [facility] TFFDNRFVEX6410[facility]47[facility] 14:50:00 Test Item Value Reference Range Interpretation Comments Hep B PCR Qnt (test Not Detected (04/06/18 code = Hep B PCR Qnt) 8:50 AM) [facility]PAR[facility] - [id number] 14:50:00 Test Item Value Reference Range Interpretation Comments Strongyloides Antibodies (test code Negative = Strongyloides Antibodies) [facility] CenterPARATHYROID [id number] 14:50:00 Test Item Value Reference Range Interpretation Comments PTH Intact (test code = PTH Intact) 180.7 18.4-80.1 [facility] MMLHBEESE6920-58-07 14:50:00 Test Item Value Reference Range Interpretation Comments Hgb A1C (test code = Hgb A1C) 6.5 [facility] [id number] 14:50:00 Test Item Value Reference Range Interpretation Comments PSA (test code = PSA) 1.00 See_Comment [Auto mated message] The system which ge nerated this result transmit nicko reference range : <=4.00. The reference r carlos was not used to interpr et this result as adebayo l/abnormal. [facility] GQUKTKYBU4243-00-32 14:50:00 Test Item Value Reference Range Interpretation Comments Nicotine Lvl (test code = None Detected Nicotine Lvl) [facility] JHDGNPJUO1481-60-64 14:50:00 Test Item Value Reference Range Interpretation Comments Cotinine Lvl (test code = None Detected Cotinine Lvl) [facility] AND [id number] 14:50:00 Test Item Value Reference Range Interpretation Comments UA Urobilinogen (test code = UA <=1.0 mg/dL 0.1-1.0 Urobilinogen) [facility] AND [id number] 14:50:00 Test Item Value Reference Range Interpretation Comments UA Sq Epi (test code = UA Sq Epi) None Seen [facility] AND [id number] 14:50:00 Test Item Value Reference Range Interpretation Comments UA Turbidity (test code = Clear (04/06/18 8:50 UA Turbidity) AM) [facility] AND [id number] 14:50:00 Test Item Value Reference Range Interpretation Comments UA Color (test code = Yellow *NA*(04/06/18 8:50 UA Color) AM) [facility] AND [id number] 14:50:00 Test Item Value Reference Range Interpretation Comments UA pH (test code = UA pH) 5.5 1 5.0-8.0 [facility] AND [id number] 14:50:00 Test Item Value Reference Range Interpretation Comments UA Spec Grav (test code = UA Spec 1.009 1 Grav) [facility] AND [id number] 14:50:00 Test Item Value Reference Range Interpretation Comments UA WBC (test code = 1 See_Comment [Automa nicko message] The UA WBC) system which ge nerated this result transmit nicko reference range : <=5. The reference range was not used to interpr et this result as adebayo l/abnormal. [facility] AND [id number] 14:50:00 Test Item Value Reference Range Interpretation Comments UA Leuk Est (test Negative (04/06/18 8:50 code = UA Leuk Est) AM) [facility] AND [id number] 14:50:00 Test Item Value Reference Range Interpretation Comments UA Nitrite (test code Negative (04/06/18 8:50 = UA Nitrite) AM) [facility] AND [id number] 14:50:00 Test Item Value Reference Range Interpretation Comments UA Ketones (test code = UA Negative mg/dL Ketones) [facility] AND [id number] 14:50:00 Test Item Value Reference Range Interpretation Comments UA Glucose (test code = UA Negative mg/dL Glucose) [facility] AND [id number] 14:50:00 Test Item Value Reference Range Interpretation Comments UA Protein (test code = UA Protein) 100 mg/dL [facility] AND [id number] 14:50:00 Test Item Value Reference Range Interpretation Comments UA Blood (test code = Trace *ABN*(04/06/18 UA Blood) 8:50 AM) [facility] AND [id number] 14:50:00 Test Item Value Reference Range Interpretation Comments UA Bili (test code = Negative *NA*(04/06/18 UA Bili) 8:50 AM) [facility]2019-02-05 14:50:00 Test Item Value Reference Range Interpretation Comments U Microalb (test code = U Microalb) 638.0 [facility]2019-02-05 14:50:00 Test Item Value Reference Range Interpretation Comments U Protein (test code = U Protein) 117.7 [facility]2019-02-05 14:50:00 Test Item Value Reference Range Interpretation Comments U Prot/Creat (test code = U 0.78 1 Prot/Creat) [facility] [id number] 14:50:00 Test Item Value Reference Range Interpretation Comments U Creatinine (test code = U 151.00 Creatinine) [facility] [id number] 14:50:00 Test Item Value Reference Range Interpretation Comments Ferritin Lvl (test code = Ferritin Lvl) 213 22-275 [facility] [id number] 14:50:00 Test Item Value Reference Range Interpretation Comments UIBC (test code = UIBC) 261 110-370 [facility] [id number] 14:50:00 Test Item Value Reference Range Interpretation Comments % Satur Fe (test code = % Satur Fe) 15 12-57 [facility] [id number] 14:50:00 Test Item Value Reference Range Interpretation Comments Iron (test code = Iron) 46 45-160 [facility] [id number] 14:50:00 Test Item Value Reference Range Interpretation Comments TIBC (test code = TIBC) 307 228-428 [facility] BANK [id number] 14:50:00 Test Item Value Reference Range Interpretation Comments OP ABORh Int (test code = OP ABORh Int) O POS [facility] [id number] 14:50:00 Test Item Value Reference Range Interpretation Comments Vitamin D, 25-OH, Total (test code = 36.8 30.0-100.0 Vitamin D, 25-OH, Total) [facility] [id number] 14:50:00 Test Item Value Reference Range Interpretation Comments Uric Acid (test code = Uric Acid) 7.3 3.8-8.0 [facility] [place] [id number] 14:50:00 Test Item Value Reference Range Interpretation Comments Phosphorus (test code = Phosphorus) 3.4 2.5-4.5 [facility] [place] [id number] 14:50:00 Test Item Value Reference Range Interpretation Comments Magnesium Lvl (test code = Magnesium 2.0 1.8-2.4 Lvl) [facility] [id number] 14:50:00 Test Item Value Reference Range Interpretation Comments C-Peptide (test code = C-Peptide) 8.17 0.48-5.05 [facility]2019-02-05 14:50:00 Test Item Value Reference Range Interpretation Comments A/G Ratio (test code = A/G Ratio) 0.9 1 0.7-1.6 [facility]2019-02-05 14:50:00 Test Item Value Reference Range Interpretation Comments B/C Ratio (test code = B/C Ratio) 9 1 6-25 [facility]2019-02-05 14:50:00 Test Item Value Reference Range Interpretation Comments AGAP (test code = AGAP) 12.4 10.0-20.0 [facility]2019-02-05 14:50:00 Test Item Value Reference Range Interpretation Comments Globulin (test code = Globulin) 4.2 2.7-4.2 [facility]2019-02-05 14:50:00 Test Item Value Reference Range Interpretation Comments eGFR (test code = eGFR) 14 [facility]2019-02-05 14:50:00 Test Item Value Reference Range Interpretation Comments ALT (test code = ALT) 12 See_Comment [Auto mated message] The system which ge nerated this result transmit nicko reference range : <=65. The reference range was not used to interpr et this result as adebayo l/abnormal. [facility]2019-02-05 14:50:00 Test Item Value Reference Range Interpretation Comments Alk Phos (test code = Alk Phos) 70 39-136 [facility]2019-02-05 14:50:00 Test Item Value Reference Range Interpretation Comments AST (test code = AST) 8 See_Comment [Auto mated message] The system which ge nerated this result transmit nicko reference range : <=37. The reference range was not used to interpr et this result as adebayo l/abnormal. [facility]2019-02-05 14:50:00 Test Item Value Reference Range Interpretation Comments Albumin Lvl (test code = Albumin Lvl) 3.7 3.5-5.0 [facility]2019-02-05 14:50:00 Test Item Value Reference Range Interpretation Comments Bili Total (test code = Bili Total) 0.3 0.2-1.3 [facility]2019-02-05 14:50:00 Test Item Value Reference Range Interpretation Comments Glucose Lvl (test code = Glucose Lvl) 83 70-99 [facility]2019-02-05 14:50:00 Test Item Value Reference Range Interpretation Comments Sodium Lvl (test code = Sodium Lvl) 137 135-145 [facility]2019-02-05 14:50:00 Test Item Value Reference Range Interpretation Comments BUN (test code = BUN) 35 7-22 [facility]2019-02-05 14:50:00 Test Item Value Reference Range Interpretation Comments Creatinine Lvl (test code = Creatinine 4.10 0.50-1.40 Lvl) [facility]2019-02-05 14:50:00 Test Item Value Reference Range Interpretation Comments CO2 (test code = CO2) 25 24-32 [facility]2019-02-05 14:50:00 Test Item Value Reference Range Interpretation Comments Calcium Lvl (test code = Calcium Lvl) 9.7 8.5-10.5 [facility]2019-02-05 14:50:00 Test Item Value Reference Range Interpretation Comments Potassium Lvl (test code = Potassium 4.4 3.5-5.1 Lvl) [facility]2019-02-05 14:50:00 Test Item Value Reference Range Interpretation Comments Chloride Lvl (test code = Chloride Lvl) 104 95-109 [facility]2019-02-05 14:50:00 Test Item Value Reference Range Interpretation Comments Total Protein (test code = Total 7.9 6.4-8.4 Protein) [facility] [id number] 14:50:00 Test Item Value Reference Range Interpretation Comments Opiate Qnt (test code = Opiate Qnt) Negative [facility] [id number] 14:50:00 Test Item Value Reference Range Interpretation Comments Phencyclidine Scr (test code = Negative Phencyclidine Scr) [facility]2019-02-05 14:50:00 Test Item Value Reference Range Interpretation Comments Kaitlin Scr (test code = Kaitlin Scr) Negative [facility]2019-02-05 14:50:00 Test Item Value Reference Range Interpretation Comments Methadone Scr (test code = Methadone Negative Scr) [facility]2019-02-05 14:50:00 Test Item Value Reference Range Interpretation Comments Cocaine Scr (test code = Cocaine Negative Scr) [facility] [id number] 14:50:00 Test Item Value Reference Range Interpretation Comments Cannab Scr (test code = Cannab Scr) Negative [facility] [id number] 14:50:00 Test Item Value Reference Range Interpretation Comments Amph Scr (test code = Amph Scr) Negative [facility] [id number] 14:50:00 Test Item Value Reference Range Interpretation Comments Opiate Scr (test code = Opiate Scr) Positive [facility] [id number] 14:50:00 Test Item Value Reference Range Interpretation Comments 6-Acetylmor Scr (test code = Negative 6-Acetylmor Scr) [facility] [id number] 14:50:00 Test Item Value Reference Range Interpretation Comments Benzodiaz Scr (test code = Benzodiaz Negative Scr) [facility] CenterOgmdvguTTKNVYBSBM4524-94-86 14:50:00 Test Item Value Reference Range Interpretation Comments Basophils # (test code 0.1 See_Comment [Aut omated message] The = Basophils #) system which generated this result tra nsmitted reference range : <=0.2. The reference r carlos was not used to int erpret this result as normal/abnormal . [facility] HospitalEpittxxNTGQKZAWNM0238-45-83 14:50:00 Test Item Value Reference Range Interpretation Comments Segs (test code = Segs) 68.2 45.0-75.[address] [facility] HospitalVceruicNOKXUTOHFN2569-35-65 14:50:00 Test Item Value Reference Range Interpretation Comments Lymphocytes (test code = Lymphocytes) 20.5 20.0-40.0 [facility]EnfjrxfUGHBKTFETZ3216-60-10 14:50:00 Test Item Value Reference Range Interpretation Comments Neutrophils # (test code = Neutrophils 6.0 1.5-8.1 #) [facility]MlhcxoqGZXCTECQVP1363-69-60 14:50:00 Test Item Value Reference Range Interpretation Comments Basophils (test code = 0.6 See_Comment [Aut omated message] The Basophils) system which ge nerated this result tra nsmitted reference range : <=1.0. The reference r carlos was not used to int erpret this result as normal/abnormal . [facility] HospitalJrmzgzpFBUONCNMGL8269-25-66 14:50:00 Test Item Value Reference Range Interpretation Comments Lymphocytes # (test code = Lymphocytes 1.8 1.0-5.5 #) [facility] HospitalIgaqzlvXEWZKHOLYS2092-66-29 14:50:00 Test Item Value Reference Range Interpretation Comments Eosinophils (test code = 3.2 See_Comment [A utomated message] The Eosinophils) system which ge nerated this result tra nsmitted reference range : <=4.0. The reference r carlos was not used to int erpret this result as normal/abnormal . [facility] HospitalHygzvnyGRSRODUAEI2443-27-95 14:50:00 Test Item Value Reference Range Interpretation Comments Monocytes (test code = Monocytes) 7.5 2.0-12.[address] [facility] Hospit[id number] 14:50:00 Test Item Value Reference Range Interpretation Comments Eosinophils # (test code 0.3 See_Comment [A utomated message] The = Eosinophils #) system whic h generated this result tra nsmitted reference range : <=0.5. The reference r carlos was not used to int erpret this result as normal/abnormal . [facility] HospitalMbypzmyRXHLMQROYX5810-70-69 14:50:00 Test Item Value Reference Range Interpretation Comments Monocytes # (test code 0.7 See_Comment [Aut omated message] The = Monocytes #) system which generated this result tra nsmitted reference range : <=0.8. The reference r carlos was not used to int erpret this result as normal/abnormal . [facility] HospitalVmagjztWVDGGBPONG6718-40-50 14:50:00 Test Item Value Reference Range Interpretation Comments Hgb (test code = Hgb) 13.3 14.0-18.[address] [facility] HospitalAnibmqzGGAASIKREP1891-49-24 14:50:00 Test Item Value Reference Range Interpretation Comments Hct (test code = Hct) 41.1 42.0-54.[address] [facility] HospitalDdcjgefCQNBYQGZVJ1195-04-71 14:50:00 Test Item Value Reference Range Interpretation Comments MCV (test code = MCV) 88.4 80.0-94.[address] [facility] HospitalOxvmwxxFKUBPCSLGF2045-29-96 14:50:00 Test Item Value Reference Range Interpretation Comments MCH (test code = MCH) 28.7 pg 27.0-31.[address] [facility] [facility] HospitalVyfzzlyIQCXIUIDMA8243-47-16 14:50:00 Test Item Value Reference Range Interpretation Comments RBC (test code = RBC) 4.65 4.70-6.[address] [facility] HospitalGrpttssDWMGXCQORL8244-76-84 14:50:00 Test Item Value Reference Range Interpretation Comments RDW (test code = RDW) 14.6 11.5-14.[address] [facility] HospitalHuvwfowCHKCYDJKPV3248-92-86 14:50:00 Test Item Value Reference Range Interpretation Comments MCHC (test code = MCHC) 32.5 32.0-36.[address] [facility] HospitalVylvuzaAYFWPLIIKP2839-94-06 14:50:00 Test Item Value Reference Range Interpretation Comments Platelet (test code = Platelet) 238 133-[address] [facility] HospitalKetlskqMMCFBBKRBP6244-32-97 14:50:00 Test Item Value Reference Range Interpretation Comments MPV (test code = MPV) 9.0 7.4-10.[address] [facility] HospitalOhooaprVPKXSREPYY7429-39-25 14:50:00 Test Item Value Reference Range Interpretation Comments WBC (test code = WBC) 8.8 3.7-10.[address] [facility] HospitalUpisqoyMVGIJLEHXB4183-88-32 14:50:00 Test Item Value Reference Range Interpretation Comments INR (test code = INR) 0.96 1 0.85-1.[address] [facility] HospitalBzwivacBUQPFWYARD0545-52-85 14:50:00 Test Item Value Reference Range Interpretation Comments PT (test code = PT) 12.6 s 12.0-14.[address] [facility] [facility] HospitalYgulrclKKUPYTXSEC5303-19-13 14:50:00 Test Item Value Reference Range Interpretation Comments PTT (test code = PTT) 34.7 s 22.9-35.8 [facility]KC[facility]EHUHG5794[facility]47[facility] 14:50:00 Test Item Value Reference Range Interpretation Comments Treponemal Ab (test code Non-Reactive = Treponemal Ab) *NA*(04/06/18 8:50 AM) [facility]QkrnstjHWLSIYGWZP5909-79-17 14:50:00 Test Item Value Reference Range Interpretation Comments Varicella IgM (test no gt See_Comment [Automa nicko message] The code = Varicella IgM) system which generated this result tra nsmitted reference range : <=0.90. The reference r carlos was not used to int erpret this result as normal/abnormal . [facility] TylerGhdzzjbLFJGAKVDLZ4466-06-69 14:50:00 Test Item Value Reference Range Interpretation Comments Varicella IgG (test code = Varicella no gt IgG) [facility] TylerGuhrhkvWATPRWZHDB7614-17-33 14:50:00 Test Item Value Reference Range Interpretation Comments Hep Bs Ag (test code Negative *NA*(04/06/18 = Hep Bs Ag) 8:50 AM) [facility] TylerIxhlaanWNTRYKQQAK9434-78-53 14:50:00 Test Item Value Reference Range Interpretation Comments HSV 1 IgG (test code = HSV 1 IgG) no gt [facility] TylerNzsztvxOTSOEKZLSK7942-82-32 14:50:00 Test Item Value Reference Range Interpretation Comments HSV 2 IgG (test code = HSV 2 IgG) [facility] gt [facility]RxvfpmvZMURQOTWMH6318-07-13 14:50:00 Test Item Value Reference Range Interpretation Comments Lambda Free Light Chains (test code = 66.41 5.70-26.30 Lambda Free Light Chains) [facility] TylerCveeqxnMMUMCPAGYO7035-79-17 14:50:00 Test Item Value Reference Range Interpretation Comments Rennert/Lambda Free Light Chains Ratio 1.66 0.26-1.65 (test code = Rennert/Lambda Free Light Chains Ratio) [facility] TylerRqashvoFAWEDBCSHJ1241-59-64 14:50:00 Test Item Value Reference Range Interpretation Comments Rennert Free Light Chains (test code = 110.34 3.30-19.40 Rennert Free Light Chains) [facility] TylerFxgpxksZXKXEXOVJH5871-69-77 14:50:00 Test Item Value Reference Range Interpretation Comments Hep C Ab (test code = Negative *NA*(04/06/18 Hep C Ab) 8:50 AM) [facility] TylerJkondvuOFTHODBRTX4445-68-57 14:50:00 Test Item Value Reference Range Interpretation Comments T-Spot.TB (test code Negative (04/06/18 8:50 = T-Spot.TB) AM) [facility] TylerDrbjhawJUMVVGQKFV6149-27-17 14:50:00 Test Item Value Reference Range Interpretation [...] and concur with the resident's interpretation. CPT 88138-EX [facility] TylerZhnglvsHOIQKMIAAA3623-75-88 14:50:00 Test Item Value Reference Range Interpretation Comments Beta Glob (test code = Beta Glob) 0.99 0.50-1.15 [facility]enOkvgzruXRWNBPNUAJ6160-41-86 14:50:00 Test Item Value Reference Range Interpretation Comments Gamma Glob (test code = Gamma Glob) 1.28 0.71-1.57 [facility]enKtqtslrUWMLKONUYT6363-12-38 14:50:00 Test Item Value Reference Range Interpretation Comments Tot Prot (SPE) (test code = Tot Prot 7.9 6.4-8.4 (SPE)) [facility]enPnyvzpmIJHFHJCPDI8085-97-73 14:50:00 Test Item Value Reference Range Interpretation Comments Albumin (SPE) (test code = Albumin 4.25 3.57-5.55 (SPE)) [facility] CenterDdijsteVWZRPXBBNN6122-26-78 14:50:00 Test Item Value Reference Range Interpretation Comments Gamma % (test code = Gamma %) 16.2 11.1-18.7 [facility] CenterFzgzuhmZANYDNUGCN0259-69-67 14:50:00 Test Item Value Reference Range Interpretation Comments Alpha 1 Glob (test code = Alpha 1 Glob) 0.43 0.18-0.41 [facility]enIltswlnNMGVWOYFKZ7957-43-04 14:50:00 Test Item Value Reference Range Interpretation Comments Alpha 2 Glob (test code = Alpha 2 Glob) 0.96 0.45-1.00 [facility]enPgtczmoJDXDLTESCX1648-22-96 14:50:00 Test Item Value Reference Range Interpretation Comments Alpha 1 % (test code = Alpha 1 %) 5.4 2.8-4.9 [facility]enHvfwzfnQXCPRTNXBY1835-64-75 14:50:00 Test Item Value Reference Range Interpretation Comments Albumin % (test code = Albumin %) 53.8 55.8-66.1 [facility]enWgbijerBTOVILRHLF4959-87-38 14:50:00 Test Item Value Reference Range Interpretation Comments Beta % (test code = Beta %) 12.5 7.8-13.7 [facility]allenReidsecJZIGXXHVNI9726-61-13 14:50:00 Test Item Value Reference Range Interpretation Comments Alpha 2 % (test code = Alpha 2 %) 12.1 7.0-11.9 [facility]enMxhlfimBVMRZLWHDE9654-72-26 14:50:00 Test Item Value Reference Range Interpretation Comments EBV VCA IgM (test code = EBV VCA IgM) no gt [facility]KynyvvnELMGQLUVJB1474-05-82 14:50:00 Test Item Value Reference Range Interpretation Comments EBV VCA IgG (test code = EBV VCA IgG) no gt [facility] TylerYnutizbDIYTIQNBHO3563-79-92 14:50:00 Test Item Value Reference Range Interpretation Comments Hep Bs Ab (test code = Hep Bs Ab) 5.2 [facility] TylerNbuyacbBIZGCTNFVV5087-34-44 14:50:00 Test Item Value Reference Range Interpretation Comments Hep B Core Ab (test Negative *NA*(04/06/18 code = Hep B Core Ab) 8:50 AM) [facility] TylerOunyijwFMHCGEEVCY7726-47-74 14:50:00 Test Item Value Reference Range Interpretation Comments HIV Ag/Ab 4th Gen Negative *NA*(04/06/18 (test code = HIV 8:50 AM) Ag/Ab 4th Gen) [facility] TylerTejozcdKBTRHBBUMN3948-81-89 14:50:00 Test Item Value Reference Range Interpretation [...] and concur with the resident's interpretation. CPT 85180-ZX [facility] TylerTlqqodbOHMPAQLPTX7062-09-24 14:50:00 Test Item Value Reference Range Interpretation Comments KAREN Ser Pattern A distinct monoclonal (test code = KAREN Ser band is present in the Pattern) IgM izabella with a corresponding faint band in the kappa light chain izabella. The polyclonal gamma globulin background is preserved in all lanes. [facility] TylerGhxvhecWHQTWWXNFX2677-67-73 14:50:00 Test Item Value Reference Range Interpretation Comments CMV IgG (test code = Reactive *ABN*(04/06/18 CMV IgG) 8:50 AM) [facility] TylerSmwrgnfVPHJZAJWWI2019-90-11 14:50:00 Test Item Value Reference Range Interpretation Comments CMV IgM (test code = CMV IgM) 0.3 [facility]wxWZFWNJ3812-87-[facility] 14:50:00 Test Item Value Reference Range Interpretation Comments VLDL (test code = VLDL) 36 1 [facility] CenterBkgouutDGQIEH5632-83-90 14:50:00 Test Item Value Reference Range Interpretation Comments LDL (Calculated) (test code = LDL 132 (Calculated)) [facility] CenterWlcmkdkNBUUCR0606-66-83 14:50:00 Test Item Value Reference Range Interpretation Comments Chol (test code = Chol) 199 [facility] CenterBxpfkngZHKNAY9690-76-00 14:50:00 Test Item Value Reference Range Interpretation Comments Trig (test code = Trig) 182 [facility] CenterIydgddjYCCVCG0495-19-31 14:50:00 Test Item Value Reference Range Interpretation Comments HDL (test code = HDL) 31 [facility] CenterHjwqhnzATZNPA0610-10-41 14:50:00 Test Item Value Reference Range Interpretation Comments CHD Risk (test code = CHD Risk) 6.42 1 4.00-7.30 [facility] GOMHQJTRGB1741-07-26 14:50:00 Test Item Value Reference Range Interpretation Comments HBV DNA Log10 (test code = HBV DNA no gt Log10) [facility] YWDLPQCSMW1783-82-58 14:50:00 Test Item Value Reference Range Interpretation Comments Hep B PCR Qnt (test Not Detected (04/06/18 code = Hep B PCR Qnt) 8:50 AM) [facility]PAR[facility] - [id number] 14:50:00 Test Item Value Reference Range Interpretation Comments Strongyloides Antibodies (test code Negative = Strongyloides Antibodies) [facility] CenterPARATHYROID [id number] 14:50:00 Test Item Value Reference Range Interpretation Comments PTH Intact (test code = PTH Intact) 180.7 18.4-80.1 [facility] XSPNKOTQL7281-57-78 14:50:00 Test Item Value Reference Range Interpretation Comments Hgb A1C (test code = Hgb A1C) 6.5 [facility] BHNUQTCVK9174-29-45 14:50:00 Test Item Value Reference Range Interpretation Comments PSA (test code = PSA) 1.00 See_Comment [Auto mated message] The system which ge nerated this result transmit nicko reference range : <=4.00. The reference r carlos was not used to interpr et this result as adebayo l/abnormal. [facility] TBGAWYKJK6999-95-61 14:50:00 Test Item Value Reference Range Interpretation Comments Nicotine Lvl (test code = None Detected Nicotine Lvl) [facility] AZZFKYJUM2428-26-15 14:50:00 Test Item Value Reference Range Interpretation Comments Cotinine Lvl (test code = None Detected Cotinine Lvl) [facility] AND [id number] 14:50:00 Test Item Value Reference Range Interpretation Comments UA Urobilinogen (test code = UA <=1.0 mg/dL 0.1-1.0 Urobilinogen) [facility] AND [id number] 14:50:00 Test Item Value Reference Range Interpretation Comments UA Sq Epi (test code = UA Sq Epi) None Seen [facility] AND [id number] 14:50:00 Test Item Value Reference Range Interpretation Comments UA Turbidity (test code = Clear (04/06/18 8:50 UA Turbidity) AM) [facility] AND [id number] 14:50:00 Test Item Value Reference Range Interpretation Comments UA Color (test code = Yellow *NA*(04/06/18 8:50 UA Color) AM) [facility] AND [id number] 14:50:00 Test Item Value Reference Range Interpretation Comments UA pH (test code = UA pH) 5.5 1 5.0-8.0 [facility] AND [id number] 14:50:00 Test Item Value Reference Range Interpretation Comments UA Spec Grav (test code = UA Spec 1.009 1 Grav) [facility] AND [id number] 14:50:00 Test Item Value Reference Range Interpretation Comments UA WBC (test code = 1 See_Comment [Automa nicko message] The UA WBC) system which ge nerated this result transmit nicko reference range : <=5. The reference range was not used to interpr et this result as adebayo l/abnormal. [facility] AND [id number] 14:50:00 Test Item Value Reference Range Interpretation Comments UA Leuk Est (test Negative (04/06/18 8:50 code = UA Leuk Est) AM) [facility] AND [id number] 14:50:00 Test Item Value Reference Range Interpretation Comments UA Nitrite (test code Negative (04/06/18 8:50 = UA Nitrite) AM) [facility] AND [id number] 14:50:00 Test Item Value Reference Range Interpretation Comments UA Ketones (test code = UA Negative mg/dL Ketones) [facility] AND [id number] 14:50:00 Test Item Value Reference Range Interpretation Comments UA Glucose (test code = UA Negative mg/dL Glucose) [facility] AND [id number] 14:50:00 Test Item Value Reference Range Interpretation Comments UA Protein (test code = UA Protein) 100 mg/dL [facility] AND [id number] 14:50:00 Test Item Value Reference Range Interpretation Comments UA Blood (test code = Trace *ABN*(04/06/18 UA Blood) 8:50 AM) [facility] AND [id number] 14:50:00 Test Item Value Reference Range Interpretation Comments UA Bili (test code = Negative *NA*(04/06/18 UA Bili) 8:50 AM) [facility]2019-02-05 14:50:00 Test Item Value Reference Range Interpretation Comments U Microalb (test code = U Microalb) 638.0 [facility]2019-02-05 14:50:00 Test Item Value Reference Range Interpretation Comments U Protein (test code = U Protein) 117.7 [facility]2019-02-05 14:50:00 Test Item Value Reference Range Interpretation Comments U Prot/Creat (test code = U 0.78 1 Prot/Creat) [facility]2019-02-05 14:50:00 Test Item Value Reference Range Interpretation Comments U Creatinine (test code = U 151.00 Creatinine) [facility] AND [id number] 16:40:00 Test Item Value Reference Range Interpretation Comments UA Urobilinogen (test code = UA 0.2 0.1-1.0 Urobilinogen) [facility] AND [id number] 16:40:00 Test Item Value Reference Range Interpretation Comments UA Nitrite (test code Negative (11/03/16 11:40 = UA Nitrite) AM) [facility] AND [id number] 16:40:00 Test Item Value Reference Range Interpretation Comments UA Leuk Est (test Negative (11/03/16 11:40 code = UA Leuk Est) AM) [facility] AND [id number] 16:40:00 Test Item Value Reference Range Interpretation Comments UA pH (test code = UA pH) 5.5 1 5.0-8.0 [facility] AND [id number] 16:40:00 Test Item Value Reference Range Interpretation Comments UA Protein (test code = UA Protein) 100 mg/dL [facility] AND [id number] 16:40:00 Test Item Value Reference Range Interpretation Comments UA Glucose (test code Negative (11/03/16 11:40 = UA Glucose) AM) [facility] AND [id number] 16:40:00 Test Item Value Reference Range Interpretation Comments UA Blood (test code = Moderate *ABN*(11/03/16 UA Blood) 11:40 AM) [facility] AND [id number] 16:40:00 Test Item Value Reference Range Interpretation Comments UA Ketones (test code Negative *NA*(11/03/16 = UA Ketones) 11:40 AM) [facility] AND [id number] 16:40:00 Test Item Value Reference Range Interpretation Comments UA Bili (test code = Negative *NA*(11/03/16 UA Bili) 11:40 AM) [facility] AND [id number] 16:40:00 Test Item Value Reference Range Interpretation Comments UA Color (test code = Yellow *NA*(11/03/16 UA Color) 11:40 AM) [facility] AND [id number] 16:40:00 Test Item Value Reference Range Interpretation Comments UA Spec Grav (test code = UA Spec 1.020 1 Grav) [facility] AND [id number] 16:40:00 Test Item Value Reference Range Interpretation Comments UA Turbidity (test code = Clear (11/03/16 11:40 UA Turbidity) AM) [facility] AND [id number] 16:40:00 Test Item Value Reference Range Interpretation Comments UA Sq Epi (test code = UA Sq Epi) Rare /LPF [facility] AND [id number] 16:40:00 Test Item Value Reference Range Interpretation Comments UA Bacteria (test code = UA Occasional /HPF Bacteria) [facility] AND [id number] 16:40:00 Test Item Value Reference Range Interpretation Comments UA WBC (test code = UA WBC) 0-2 /HPF Formerly [facility] AND [id number] 16:40:00 Test Item Value Reference Range Interpretation Comments UA RBC (test code = 0-2 /HPF See_Comment [Automa nicko message] The UA RBC) system which ge nerated this result tra nsmitted reference range : <=2. The reference range was not used to interpr et this result as adebayo l/abnormal. Formerly [facility] AND [id number] 16:40:00 Test Item Value Reference Range Interpretation Comments UA Hyal Cast 0-2 (11/03/16 See_Comment [Automated mes karon] (test code = UA 11:40 AM) The system w hich Hyal Cast) generated this result transmitted ref erence range: <=2. The reference range was not used to int erpret this result as normal/abnormal . [facility]ly [facility] AND [id number] 16:40:00 Test Item Value Reference Range Interpretation Comments UA Urobilinogen (test code = UA 0.2 0.1-1.0 Urobilinogen) Formerly [facility] AND [id number] 16:40:00 Test Item Value Reference Range Interpretation Comments UA Nitrite (test code Negative (11/03/16 11:40 = UA Nitrite) AM) [facility]ly [facility] AND [id number] 16:40:00 Test Item Value Reference Range Interpretation Comments UA Leuk Est (test Negative (11/03/16 11:40 code = UA Leuk Est) AM) [facility]ly [facility] AND [id number] 16:40:00 Test Item Value Reference Range Interpretation Comments UA pH (test code = UA pH) 5.5 1 5.0-8.0 [facility]ly [facility] AND [id number] 16:40:00 Test Item Value Reference Range Interpretation Comments UA Protein (test code = UA Protein) 100 mg/dL [facility]ly [facility] AND [id number] 16:40:00 Test Item Value Reference Range Interpretation Comments UA Glucose (test code Negative (11/03/16 11:40 = UA Glucose) AM) Formerly [facility] AND [id number] 16:40:00 Test Item Value Reference Range Interpretation Comments UA Blood (test code = Moderate *ABN*(11/03/16 UA Blood) 11:40 AM) [facility]ly [facility] AND [id number] 16:40:00 Test Item Value Reference Range Interpretation Comments UA Ketones (test code Negative *NA*(11/03/16 = UA Ketones) 11:40 AM) [facility]ly [facility] AND [id number] 16:40:00 Test Item Value Reference Range Interpretation Comments UA Bili (test code = Negative *NA*(11/03/16 UA Bili) 11:40 AM) [facility]ly [facility] AND [id number] 16:40:00 Test Item Value Reference Range Interpretation Comments UA Color (test code = Yellow *NA*(11/03/16 UA Color) 11:40 AM) [facility]ly [facility] AND [id number] 16:40:00 Test Item Value Reference Range Interpretation Comments UA Spec Grav (test code = UA Spec 1.020 1 Grav) [facility]ly [facility] AND [id number] 16:40:00 Test Item Value Reference Range Interpretation Comments UA Turbidity (test code = Clear (11/03/16 11:40 UA Turbidity) AM) [facility]ly [facility] AND [id number] 16:40:00 Test Item Value Reference Range Interpretation Comments UA Sq Epi (test code = UA Sq Epi) Rare /LPF [facility]ly [facility] AND [id number] 16:40:00 Test Item Value Reference Range Interpretation Comments UA Bacteria (test code = UA Occasional /HPF Bacteria) Formerly [facility] AND [id number] 16:40:00 Test Item Value Reference Range Interpretation Comments UA WBC (test code = UA WBC) 0-2 /HPF [facility]ly [facility] AND [id number] 16:40:00 Test Item Value Reference Range Interpretation Comments UA RBC (test code = 0-2 /HPF See_Comment [Automa nicko message] The UA RBC) system which ge nerated this result tra nsmitted reference range : <=2. The reference range was not used to interpr et this result as adebayo l/abnormal. [facility]ly [facility] AND [id number] 16:40:00 Test Item Value Reference Range Interpretation Comments UA Hyal Cast 0-2 (11/03/16 See_Comment [Automated mes karon] (test code = UA 11:40 AM) The system w hich Hyal Cast) generated this result transmitted ref erence range: <=2. The reference range was not used to int erpret this result as normal/abnormal . [facility]ly [facility] AND [id number] 16:40:00 Test Item Value Reference Range Interpretation Comments UA Urobilinogen (test code = UA 0.2 0.1-1.0 Urobilinogen) Formerly [facility] AND [id number] 16:40:00 Test Item Value Reference Range Interpretation Comments UA Nitrite (test code Negative (11/03/16 11:40 = UA Nitrite) AM) [facility]ly [facility] AND [id number] 16:40:00 Test Item Value Reference Range Interpretation Comments UA Leuk Est (test Negative (11/03/16 11:40 code = UA Leuk Est) AM) [facility]ly [facility] AND [id number] 16:40:00 Test Item Value Reference Range Interpretation Comments UA pH (test code = UA pH) 5.5 1 5.0-8.0 [facility]ly [facility] AND [id number] 16:40:00 Test Item Value Reference Range Interpretation Comments UA Protein (test code = UA Protein) 100 mg/dL [facility]ly [facility] AND [id number] 16:40:00 Test Item Value Reference Range Interpretation Comments UA Glucose (test code Negative (11/03/16 11:40 = UA Glucose) AM) [facility]ly [facility] AND [id number] 16:40:00 Test Item Value Reference Range Interpretation Comments UA Blood (test code = Moderate *ABN*(11/03/16 UA Blood) 11:40 AM) [facility] AND [id number] 16:40:00 Test Item Value Reference Range Interpretation Comments UA Ketones (test code Negative *NA*(11/03/16 = UA Ketones) 11:40 AM) [facility] AND [id number] 16:40:00 Test Item Value Reference Range Interpretation Comments UA Bili (test code = Negative *NA*(11/03/16 UA Bili) 11:40 AM) [facility] AND [id number] 16:40:00 Test Item Value Reference Range Interpretation Comments UA Color (test code = Yellow *NA*(11/03/16 UA Color) 11:40 AM) [facility]ly [facility] AND [id number] 16:40:00 Test Item Value Reference Range Interpretation Comments UA Spec Grav (test code = UA Spec 1.020 1 Grav) [facility]ly [facility] AND [id number] 16:40:00 Test Item Value Reference Range Interpretation Comments UA Turbidity (test code = Clear (11/03/16 11:40 UA Turbidity) AM) [facility] [id number] 16:40:00 Test Item Value Reference Range Interpretation Comments UA Sq Epi (test code = UA Sq Epi) Rare /LPF [facility] [id number] 16:40:00 Test Item Value Reference Range Interpretation Comments UA Bacteria (test code = UA Occasional /HPF Bacteria) [facility]ly [facility] AND [id number] 16:40:00 Test Item Value Reference Range Interpretation Comments UA WBC (test code = UA WBC) 0-2 /HPF [facility] AND [id number] 16:40:00 Test Item Value Reference Range Interpretation Comments UA RBC (test code = 0-2 /HPF See_Comment [Automa nicko message] The UA RBC) system which ge nerated this result tra nsmitted reference range : <=2. The reference range was not used to interpr et this result as adebayo l/abnormal. [facility] [id number] 16:40:00 Test Item Value Reference Range Interpretation Comments UA Hyal Cast 0-2 (11/03/16 See_Comment [Automated mes karon] (test code = UA 11:40 AM) The system w hich Hyal Cast) generated this result transmitted ref erence range: <=2. The reference range was not used to int erpret this result as normal/abnormal . [facility] [id number] 16:40:00 Test Item Value Reference Range Interpretation Comments UA Ketones (test code Negative *NA*(11/03/16 = UA Ketones) 11:40 AM) [facility] AND [id number] 16:40:00 Test Item Value Reference Range Interpretation Comments UA Bili (test code = Negative *NA*(11/03/16 UA Bili) 11:40 AM) [facility] [id number] 16:40:00 Test Item Value Reference Range Interpretation Comments UA Color (test code = Yellow *NA*(11/03/16 UA Color) 11:40 AM) [facility] AND [id number] 16:40:00 Test Item Value Reference Range Interpretation Comments UA Spec Grav (test code = UA Spec 1.020 1 Grav) [facility] AND [id number] 16:40:00 Test Item Value Reference Range Interpretation Comments UA Turbidity (test code = Clear (11/03/16 11:40 UA Turbidity) AM) [facility] AND [id number] 16:40:00 Test Item Value Reference Range Interpretation Comments UA Sq Epi (test code = UA Sq Epi) Rare /LPF [facility] AND [id number] 16:40:00 Test Item Value Reference Range Interpretation Comments UA Bacteria (test code = UA Occasional /HPF Bacteria) [facility] AND [id number] 16:40:00 Test Item Value Reference Range Interpretation Comments UA WBC (test code = UA WBC) 0-2 /HPF [facility] AND [id number] 16:40:00 Test Item Value Reference Range Interpretation Comments UA RBC (test code = 0-2 /HPF See_Comment [Automa nicko message] The UA RBC) system which ge nerated this result tra nsmitted reference range : <=2. The reference range was not used to interpr et this result as adebayo l/abnormal. [facility] AND [id number] 16:40:00 Test Item Value Reference Range Interpretation Comments UA Hyal Cast 0-2 (11/03/16 See_Comment [Automated mes karon] (test code = UA 11:40 AM) The system w hich Hyal Cast) generated this result transmitted ref erence range: <=2. The reference range was not used to int erpret this result as normal/abnormal . [facility] AND [id number] 16:40:00 Test Item Value Reference Range Interpretation Comments UA Urobilinogen (test code = UA 0.2 0.1-1.0 Urobilinogen) [facility] AND [id number] 16:40:00 Test Item Value Reference Range Interpretation Comments UA Nitrite (test code Negative (11/03/16 11:40 = UA Nitrite) AM) [facility] AND [id number] 16:40:00 Test Item Value Reference Range Interpretation Comments UA Leuk Est (test Negative (11/03/16 11:40 code = UA Leuk Est) AM) [facility] AND [id number] 16:40:00 Test Item Value Reference Range Interpretation Comments UA pH (test code = UA pH) 5.5 1 5.0-8.0 [facility] [id number] 16:40:00 Test Item Value Reference Range Interpretation Comments UA Protein (test code = UA Protein) 100 mg/dL [facility] AND [id number] 16:40:00 Test Item Value Reference Range Interpretation Comments UA Glucose (test code Negative (11/03/16 11:40 = UA Glucose) AM) [facility] AND [id number] 16:40:00 Test Item Value Reference Range Interpretation Comments UA Blood (test code = Moderate *ABN*(11/03/16 UA Blood) 11:40 AM) [facility] [id number] 15:41:00 Test Item Value Reference Range Interpretation Comments Troponin-I (test code no gt See_Comment [Auto mated message] The = Troponin-I) system which g enerated this result transmit nicko reference range : <=0.40. The reference r carlos was not used to interpr et this result as adebayo l/abnormal. [facility] [employer] [id number] 15:41:00 Test Item Value Reference Range Interpretation Comments Magnesium Lvl (test code = Magnesium 1.5 1.8-2.4 Lvl) [facility] [id number] 15:41:00 Test Item Value Reference Range Interpretation Comments Phosphorus (test code = Phosphorus) 2.0 2.5-4.5 [facility] [id number] 15:41:00 Test Item Value Reference Range Interpretation Comments eGFR (test code = eGFR) 23 [facility] [id number] 15:41:00 Test Item Value Reference Range Interpretation Comments ASPARTATE TRANSAMINASE 11 See_Comment [Aut omated message] (test code = ASPARTATE The s ystem which TRANSAMINASE) generated this result transmitted ref erence range: <=37. Th e reference range was not used to interpr et this result as normal/abnormal . [facility] [employer] [id number] 15:41:00 Test Item Value Reference Range Interpretation Comments Bili Total (test code = Bili Total) 0.5 0.2-1.3 [facility]2017-09-04 15:41:00 Test Item Value Reference Range Interpretation Comments Total Protein (test code = Total 8.3 6.4-8.4 Protein) [facility]2017-09-04 15:41:00 Test Item Value Reference Range Interpretation Comments CO2 (test code = CO2) 22 24-32 [facility]2017-09-04 15:41:00 Test Item Value Reference Range Interpretation Comments Calcium Lvl (test code = Calcium Lvl) 8.7 8.5-10.5 [facility]2017-09-04 15:41:00 Test Item Value Reference Range Interpretation Comments Potassium Lvl (test code = Potassium 3.9 3.5-5.1 Lvl) [facility]2017-09-04 15:41:00 Test Item Value Reference Range Interpretation Comments Chloride Lvl (test code = Chloride Lvl) 108 95-109 [facility]2017-09-04 15:41:00 Test Item Value Reference Range Interpretation Comments Creatinine Lvl (test code = Creatinine 2.82 0.50-1.40 Lvl) [facility]2017-09-04 15:41:00 Test Item Value Reference Range Interpretation Comments Sodium Lvl (test code = Sodium Lvl) 139 135-145 [facility]2017-09-04 15:41:00 Test Item Value Reference Range Interpretation Comments BUN (test code = BUN) 30 7-22 [facility]2017-09-04 15:41:00 Test Item Value Reference Range Interpretation Comments Glucose Lvl (test code = Glucose Lvl) 137 70-99 [facility]2017-09-04 15:41:00 Test Item Value Reference Range Interpretation Comments Albumin Lvl (test code = Albumin Lvl) 3.6 3.5-5.0 [facility]2017-09-04 15:41:00 Test Item Value Reference Range Interpretation Comments Alk Phos (test code = Alk Phos) 73 39-136 [facility]2017-09-04 15:41:00 Test Item Value Reference Range Interpretation Comments ALANINE AMINOTRANSFERASE 16 See_Comment [A utomated message] (test code = ALANINE The sys tem which AMINOTRANSFERASE) generated this result transmitted ref erence range: <=65. Th e reference range was not used to int erpret this result as normal/abnormal . [facility]2017-09-04 15:41:00 Test Item Value Reference Range Interpretation Comments A/G Ratio (test code = A/G Ratio) 0.8 0.7-1.6 [facility]2017-09-04 15:41:00 Test Item Value Reference Range Interpretation Comments B/C Ratio (test code = B/C Ratio) 11 6-25 [facility]2017-09-04 15:41:00 Test Item Value Reference Range Interpretation Comments Globulin (test code = Globulin) 4.7 2.7-4.2 [facility]2017-09-04 15:41:00 Test Item Value Reference Range Interpretation Comments AGAP (test code = AGAP) 12.9 10.0-20.0 [facility]2017-09-04 15:41:00 Test Item Value Reference Range Interpretation Comments Lipase Lvl (test code = Lipase Lvl) 144 73-[address] [facility] [id number] 15:41:00 Test Item Value Reference Range Interpretation Comments Segs (test code = Segs) 75.6 45.0-75.[address] [facility] [facility] Hospit[id number] 15:41:00 Test Item Value Reference Range Interpretation Comments Basophils # (test code 0.1 See_Comment [Aut omated message] The = Basophils #) system which generated this result tra nsmitted reference range : <=0.2. The reference r carlos was not used to int erpret this result as normal/abnormal . [facility] [id number] 15:41:00 Test Item Value Reference Range Interpretation Comments Monocytes # (test code 0.9 See_Comment [Aut omated message] The = Monocytes #) system which generated this result tra nsmitted reference range : <=0.8. The reference r carlos was not used to int erpret this result as normal/abnormal . [facility] H[id number] 15:41:00 Test Item Value Reference Range Interpretation Comments Eosinophils # (test code 0.2 See_Comment [A utomated message] The = Eosinophils #) system whic h generated this result tra nsmitted reference range : <=0.5. The reference r carlos was not used to int erpret this result as normal/abnormal . [facility] [id number] 15:41:00 Test Item Value Reference Range Interpretation Comments Eosinophils (test code = 1.8 See_Comment [A utomated message] The Eosinophils) system which ge nerated this result tra nsmitted reference range : <=4.0. The reference r carlos was not used to int erpret this result as normal/abnormal . [facility] [id number] 15:41:00 Test Item Value Reference Range Interpretation Comments Basophils (test code = 0.6 See_Comment [Aut omated message] The Basophils) system which ge nerated this result tra nsmitted reference range : <=1.0. The reference r carlos was not used to int erpret this result as normal/abnormal . [facility] [id number] 15:41:00 Test Item Value Reference Range Interpretation Comments Lymphocytes (test code = Lymphocytes) 14.5 20.0-40.[address] [facility] Hospit[id number] 15:41:00 Test Item Value Reference Range Interpretation Comments Monocytes (test code = Monocytes) 7.5 2.0-12.[address] [facility] H[id number] 15:41:00 Test Item Value Reference Range Interpretation Comments Segs-Bands # (test code = Segs-Bands #) 9.4 1.5-8.[address] [facility] [facility] HospitalEngrxboDURAAQMFOC9311-13-94 15:41:00 Test Item Value Reference Range Interpretation Comments Lymphocytes # (test code = Lymphocytes 1.8 1.0-5.5 #) [facility] HospitalZyhqgztDPZZXOBRCK2473-69-09 15:41:00 Test Item Value Reference Range Interpretation Comments MCV (test code = MCV) 88.5 80.0-94.[address] [facility] [facility] H[id number] 15:41:00 Test Item Value Reference Range Interpretation Comments MCH (test code = MCH) 29.3 pg 27.0-31.[address] [facility] [facility] HospitalEhtlhtqXQDJFMRFHW8293-76-01 15:41:00 Test Item Value Reference Range Interpretation Comments Hct (test code = Hct) 40.7 42.0-54.[address] [facility] Ho[id number] 15:41:00 Test Item Value Reference Range Interpretation Comments MCHC (test code = MCHC) 33.2 32.0-36.0 [id number] 15:41:00 Test Item Value Reference Range Interpretation Comments RDW (test code = RDW) 15.1 11.5-14.5 [facility] RegionJjewhmfGUMPNQORBO9585-74-11 15:41:00 Test Item Value Reference Range Interpretation Comments Hgb (test code = Hgb) 13.5 14.0-18.0 [facility] [id number] 15:41:00 Test Item Value Reference Range Interpretation Comments WBC X 10x3 (test code = WBC X 10x3) 12.5 3.7-10.[address] [facility] [facility] H[id number] 15:41:00 Test Item Value Reference Range Interpretation Comments RBC X 10x6 (test code = RBC X 10x6) 4.60 4.70-6.[address] [facility] HospitalKfflmttCGSSXXJIFA3063-97-01 15:41:00 Test Item Value Reference Range Interpretation Comments MPV (test code = MPV) 8.7 7.4-10.4 [facility] RegionRijxkzhSXPWKNBUZW7528-80-01 15:41:00 Test Item Value Reference Range Interpretation Comments Platelet (test code = Platelet) 278 133-450 [facility] [id number] 15:41:00 Test Item Value Reference Range Interpretation Comments Troponin-I (test code no gt See_Comment [Auto mated message] The = Troponin-I) system which g enerated this result transmit nicko reference range : <=0.40. The reference r carlos was not used to interpr et this result as adebayo l/abnormal. [facility] [id number] 15:41:00 Test Item Value Reference Range Interpretation Comments Magnesium Lvl (test code = Magnesium 1.5 1.8-2.4 Lvl) [facility] [id number] 15:41:00 Test Item Value Reference Range Interpretation Comments Phosphorus (test code = Phosphorus) 2.0 2.5-4.5 [facility] [id number] 15:41:00 Test Item Value Reference Range Interpretation Comments eGFR (test code = eGFR) 23 [facility] [id number] 15:41:00 Test Item Value Reference Range Interpretation Comments ASPARTATE TRANSAMINASE 11 See_Comment [Aut omated message] (test code = ASPARTATE The s ystem which TRANSAMINASE) generated this result transmitted ref erence range: <=37. Th e reference range was not used to interpr et this result as normal/abnormal . [facility]2017-09-04 15:41:00 Test Item Value Reference Range Interpretation Comments Bili Total (test code = Bili Total) 0.5 0.2-1.3 [facility]2017-09-04 15:41:00 Test Item Value Reference Range Interpretation Comments Total Protein (test code = Total 8.3 6.4-8.4 Protein) [facility]2017-09-04 15:41:00 Test Item Value Reference Range Interpretation Comments CO2 (test code = CO2) 22 24-32 [facility]2017-09-04 15:41:00 Test Item Value Reference Range Interpretation Comments Calcium Lvl (test code = Calcium Lvl) 8.7 8.5-10.5 [facility]2017-09-04 15:41:00 Test Item Value Reference Range Interpretation Comments Potassium Lvl (test code = Potassium 3.9 3.5-5.1 Lvl) [facility]2017-09-04 15:41:00 Test Item Value Reference Range Interpretation Comments Chloride Lvl (test code = Chloride Lvl) 108 95-109 [facility]2017-09-04 15:41:00 Test Item Value Reference Range Interpretation Comments Creatinine Lvl (test code = Creatinine 2.82 0.50-1.40 Lvl) [facility]2017-09-04 15:41:00 Test Item Value Reference Range Interpretation Comments Sodium Lvl (test code = Sodium Lvl) 139 135-145 [facility]2017-09-04 15:41:00 Test Item Value Reference Range Interpretation Comments BUN (test code = BUN) 30 7-22 [facility]2017-09-04 15:41:00 Test Item Value Reference Range Interpretation Comments Glucose Lvl (test code = Glucose Lvl) 137 70-99 [facility]2017-09-04 15:41:00 Test Item Value Reference Range Interpretation Comments Albumin Lvl (test code = Albumin Lvl) 3.6 3.5-5.0 [facility]2017-09-04 15:41:00 Test Item Value Reference Range Interpretation Comments Alk Phos (test code = Alk Phos) 73 39-136 [facility]2017-09-04 15:41:00 Test Item Value Reference Range Interpretation Comments ALANINE AMINOTRANSFERASE 16 See_Comment [A utomated message] (test code = ALANINE The sys tem which AMINOTRANSFERASE) generated this result transmitted ref erence range: <=65. Th e reference range was not used to int erpret this result as normal/abnormal . [facility]2017-09-04 15:41:00 Test Item Value Reference Range Interpretation Comments A/G Ratio (test code = A/G Ratio) 0.8 0.7-1.6 [facility]2017-09-04 15:41:00 Test Item Value Reference Range Interpretation Comments B/C Ratio (test code = B/C Ratio) 11 6-25 [facility]2017-09-04 15:41:00 Test Item Value Reference Range Interpretation Comments Globulin (test code = Globulin) 4.7 2.7-4.2 [facility]2017-09-04 15:41:00 Test Item Value Reference Range Interpretation Comments AGAP (test code = AGAP) 12.9 10.0-20.0 [facility]2017-09-04 15:41:00 Test Item Value Reference Range Interpretation Comments Lipase Lvl (test code = Lipase Lvl) 144 73-[address] [facility] HospitalTimqaalCDEIHKQJSR7968-79-92 15:41:00 Test Item Value Reference Range Interpretation Comments Segs (test code = Segs) 75.6 45.0-75.[address] [facility] HospitalNbttawvEDNKTHDBKL8449-46-73 15:41:00 Test Item Value Reference Range Interpretation Comments Basophils # (test code 0.1 See_Comment [Aut omated message] The = Basophils #) system which generated this result tra nsmitted reference range : <=0.2. The reference r carlos was not used to int erpret this result as normal/abnormal . [facility] [facility]349[facility] 15:41:00 Test Item Value Reference Range Interpretation Comments Monocytes # (test code 0.9 See_Comment [Aut omated message] The = Monocytes #) system which generated this result tra nsmitted reference range : <=0.8. The reference r carlos was not used to int erpret this result as normal/abnormal . [facility] HospitalFjtjkzmNZKFYZOGKD1431-60-33 15:41:00 Test Item Value Reference Range Interpretation Comments Eosinophils # (test code 0.2 See_Comment [A utomated message] The = Eosinophils #) system whic h generated this result tra nsmitted reference range : <=0.5. The reference r carlos was not used to int erpret this result as normal/abnormal . [facility] HospitalCpybvzsOTLFVCTRWZ0624-43-45 15:41:00 Test Item Value Reference Range Interpretation Comments Eosinophils (test code = 1.8 See_Comment [A utomated message] The Eosinophils) system which ge nerated this result tra nsmitted reference range : <=4.0. The reference r carlos was not used to int erpret this result as normal/abnormal . [facility] HospitalPdujzjhAVPDSIJRUX7935-70-09 15:41:00 Test Item Value Reference Range Interpretation Comments Basophils (test code = 0.6 See_Comment [Aut omated message] The Basophils) system which ge nerated this result tra nsmitted reference range : <=1.0. The reference r carlos was not used to int erpret this result as normal/abnormal . [facility] HospitalIpuxqeeMWOIJABXMU0408-84-79 15:41:00 Test Item Value Reference Range Interpretation Comments Lymphocytes (test code = Lymphocytes) 14.5 20.0-40.[address] [facility] HospitalOgazlivBWJUFNTXCJ4531-83-61 15:41:00 Test Item Value Reference Range Interpretation Comments Monocytes (test code = Monocytes) 7.5 2.0-12.[address] [facility] HospitalTrdkyylIXUTVJNJBJ5052-15-33 15:41:00 Test Item Value Reference Range Interpretation Comments Segs-Bands # (test code = Segs-Bands #) 9.4 1.5-8.[address] [facility] HospitalZuieihzWZCAYDYCAW8145-97-83 15:41:00 Test Item Value Reference Range Interpretation Comments Lymphocytes # (test code = Lymphocytes 1.8 1.0-5.5 #) [facility] HospitalAwvugyyMFDTQJWSGB6136-60-61 15:41:00 Test Item Value Reference Range Interpretation Comments MCV (test code = MCV) 88.5 80.0-94.[address] [facility] HospitalYzubdjwKCRCVQAJLO1516-70-15 15:41:00 Test Item Value Reference Range Interpretation Comments MCH (test code = MCH) 29.3 pg 27.0-31.0 [facility]ZlawzusHBPSFVWZLS5364-31-45 15:41:00 Test Item Value Reference Range Interpretation Comments Hct (test code = Hct) 40.7 42.0-54.0 [facility] RegionLsfecytOUSOZMYFDS8313-30-52 15:41:00 Test Item Value Reference Range Interpretation Comments MCHC (test code = MCHC) 33.2 32.0-36.[address] [facility] HospitalDejsepgOLHQDEROLE0891-78-95 15:41:00 Test Item Value Reference Range Interpretation Comments RDW (test code = RDW) 15.1 11.5-14.5 [facility] RegionSsgvkjgYJRPFALXIS8328-06-55 15:41:00 Test Item Value Reference Range Interpretation Comments Hgb (test code = Hgb) 13.5 14.0-18.[address] [facility] HospitalDqhwndaYJSVUZETTK8385-78-50 15:41:00 Test Item Value Reference Range Interpretation Comments WBC X 10x3 (test code = WBC X 10x3) 12.5 3.7-10.[address] [facility] HospitalElhsporMGTFAIAHZP3182-77-21 15:41:00 Test Item Value Reference Range Interpretation Comments RBC X 10x6 (test code = RBC X 10x6) 4.60 4.70-6.10 [facility] RegionZabunoiTBALXVOZBA1477-98-83 15:41:00 Test Item Value Reference Range Interpretation Comments MPV (test code = MPV) 8.7 7.4-10.4 [facility] RegionKxgmdmbZBGQSIAPLG5396-09-41 15:41:00 Test Item Value Reference Range Interpretation Comments Platelet (test code = Platelet) 278 133-450 [facility] WELNKKY4581-82-64 15:41:00 Test Item Value Reference Range Interpretation Comments Troponin-I (test code no gt See_Comment [Auto mated message] The = Troponin-I) system which g enerated this result transmit nicko reference range : <=0.40. The reference r carlos was not used to interpr et this result as adebayo l/abnormal. [facility] CenterCHEM YVXPJ9896-07-76 15:41:00 Test Item Value Reference Range Interpretation Comments Magnesium Lvl (test code = Magnesium 1.5 1.8-2.4 Lvl) [facility] CenterAvaSure Holdings UGGNB7589-62-67 15:41:00 Test Item Value Reference Range Interpretation Comments Phosphorus (test code = Phosphorus) 2.0 2.5-4.5 [facility]2017-09-04 15:41:00 Test Item Value Reference Range Interpretation Comments eGFR (test code = eGFR) 23 [facility]2017-09-04 15:41:00 Test Item Value Reference Range Interpretation Comments ASPARTATE TRANSAMINASE 11 See_Comment [Aut omated message] (test code = ASPARTATE The s ystem which TRANSAMINASE) generated this result transmitted ref erence range: <=37. Th e reference range was not used to interpr et this result as normal/abnormal . [facility]2017-09-04 15:41:00 Test Item Value Reference Range Interpretation Comments Bili Total (test code = Bili Total) 0.5 0.2-1.3 [facility]2017-09-04 15:41:00 Test Item Value Reference Range Interpretation Comments Total Protein (test code = Total 8.3 6.4-8.4 Protein) [facility]2017-09-04 15:41:00 Test Item Value Reference Range Interpretation Comments CO2 (test code = CO2) 22 24-32 [facility]2017-09-04 15:41:00 Test Item Value Reference Range Interpretation Comments Calcium Lvl (test code = Calcium Lvl) 8.7 8.5-10.5 [facility]2017-09-04 15:41:00 Test Item Value Reference Range Interpretation Comments Potassium Lvl (test code = Potassium 3.9 3.5-5.1 Lvl) [facility]2017-09-04 15:41:00 Test Item Value Reference Range Interpretation Comments Chloride Lvl (test code = Chloride Lvl) 108 95-109 [facility]2017-09-04 15:41:00 Test Item Value Reference Range Interpretation Comments Creatinine Lvl (test code = Creatinine 2.82 0.50-1.40 Lvl) [facility]2017-09-04 15:41:00 Test Item Value Reference Range Interpretation Comments Sodium Lvl (test code = Sodium Lvl) 139 135-145 [facility]2017-09-04 15:41:00 Test Item Value Reference Range Interpretation Comments BUN (test code = BUN) 30 7-22 [facility]2017-09-04 15:41:00 Test Item Value Reference Range Interpretation Comments Glucose Lvl (test code = Glucose Lvl) 137 70-99 [facility]2017-09-04 15:41:00 Test Item Value Reference Range Interpretation Comments Albumin Lvl (test code = Albumin Lvl) 3.6 3.5-5.0 [facility]2017-09-04 15:41:00 Test Item Value Reference Range Interpretation Comments Alk Phos (test code = Alk Phos) 73 39-136 [facility]2017-09-04 15:41:00 Test Item Value Reference Range Interpretation Comments ALANINE AMINOTRANSFERASE 16 See_Comment [A utomated message] (test code = ALANINE The sys tem which AMINOTRANSFERASE) generated this result transmitted ref erence range: <=65. Th e reference range was not used to int erpret this result as normal/abnormal . [facility]2017-09-04 15:41:00 Test Item Value Reference Range Interpretation Comments A/G Ratio (test code = A/G Ratio) 0.8 0.7-1.6 [facility]2017-09-04 15:41:00 Test Item Value Reference Range Interpretation Comments B/C Ratio (test code = B/C Ratio) 11 6-25 [facility]2017-09-04 15:41:00 Test Item Value Reference Range Interpretation Comments Globulin (test code = Globulin) 4.7 2.7-4.2 [facility]2017-09-04 15:41:00 Test Item Value Reference Range Interpretation Comments AGAP (test code = AGAP) 12.9 10.0-20.0 [facility]2017-09-04 15:41:00 Test Item Value Reference Range Interpretation Comments Lipase Lvl (test code = Lipase Lvl) 144 73-[address] [facility] HospitalXmzwxryDLGNWCKIII3954-32-85 15:41:00 Test Item Value Reference Range Interpretation Comments Segs (test code = Segs) 75.6 45.0-75.[address] [facility] HospitalVdhftbwOARTVGHQAU1311-70-68 15:41:00 Test Item Value Reference Range Interpretation Comments Basophils # (test code 0.1 See_Comment [Aut omated message] The = Basophils #) system which generated this result tra nsmitted reference range : <=0.2. The reference r carlos was not used to int erpret this result as normal/abnormal . [facility] HospitalKvtozzkICYIZKILDJ5600-44-30 15:41:00 Test Item Value Reference Range Interpretation Comments Monocytes # (test code 0.9 See_Comment [Aut omated message] The = Monocytes #) system which generated this result tra nsmitted reference range : <=0.8. The reference r carlos was not used to int erpret this result as normal/abnormal . [facility] HospitalFwzntqjBYGWUREYQH1438-93-44 15:41:00 Test Item Value Reference Range Interpretation Comments Eosinophils # (test code 0.2 See_Comment [A utomated message] The = Eosinophils #) system whic h generated this result tra nsmitted reference range : <=0.5. The reference r carlos was not used to int erpret this result as normal/abnormal . [facility] HospitalPldcmfiVRXQRPWGFD6335-89-88 15:41:00 Test Item Value Reference Range Interpretation Comments Eosinophils (test code = 1.8 See_Comment [A utomated message] The Eosinophils) system which ge nerated this result tra nsmitted reference range : <=4.0. The reference r carlos was not used to int erpret this result as normal/abnormal . [facility] HospitalDkrmjmvNDFSWUCWUK8008-40-02 15:41:00 Test Item Value Reference Range Interpretation Comments Basophils (test code = 0.6 See_Comment [Aut omated message] The Basophils) system which ge nerated this result tra nsmitted reference range : <=1.0. The reference r carlos was not used to int erpret this result as normal/abnormal . [facility] HospitalRctpkocTKSLUBXXSK6727-81-31 15:41:00 Test Item Value Reference Range Interpretation Comments Lymphocytes (test code = Lymphocytes) 14.5 20.0-40.[address] [facility] HospitalJdullhtKMJLWQGSCF9481-48-14 15:41:00 Test Item Value Reference Range Interpretation Comments Monocytes (test code = Monocytes) 7.5 2.0-12.[address] [facility] HospitalFyrphnrTCQCAQSLAM6190-75-64 15:41:00 Test Item Value Reference Range Interpretation Comments Segs-Bands # (test code = Segs-Bands #) 9.4 1.5-8.[address] [facility] HospitalLejpbclNQGOJFHWLD1118-31-81 15:41:00 Test Item Value Reference Range Interpretation Comments Lymphocytes # (test code = Lymphocytes 1.8 1.0-5.5 #) [facility] RegionFcrskesTDDCYHOHRB7577-84-32 15:41:00 Test Item Value Reference Range Interpretation Comments MCV (test code = MCV) 88.5 80.0-94.0 [facility] RegionZcfmyghWCQHYWWPXW1979-01-05 15:41:00 Test Item Value Reference Range Interpretation Comments MCH (test code = MCH) 29.3 pg 27.0-31.0 [facility] RegionRiuqlqyGHPAFIXYXI6222-34-63 15:41:00 Test Item Value Reference Range Interpretation Comments Hct (test code = Hct) 40.7 42.0-54.0 [facility] RegionVolwqclUTATNWDREB8569-40-86 15:41:00 Test Item Value Reference Range Interpretation Comments MCHC (test code = MCHC) 33.2 32.0-36.[address] [facility] HospitalPuejoomANVTOBPLEF5706-49-63 15:41:00 Test Item Value Reference Range Interpretation Comments RDW (test code = RDW) 15.1 11.5-14.5 [facility] RegionWkdslmoFIOWHXGDIE5166-24-72 15:41:00 Test Item Value Reference Range Interpretation Comments Hgb (test code = Hgb) 13.5 14.0-18.0 [facility] RegionBjnwqkaKNOYZUSKLQ1768-96-09 15:41:00 Test Item Value Reference Range Interpretation Comments WBC X 10x3 (test code = WBC X 10x3) 12.5 3.7-10.4 [facility] RegionLwnraoySOCNQGLXOO2128-81-41 15:41:00 Test Item Value Reference Range Interpretation Comments RBC X 10x6 (test code = RBC X 10x6) 4.60 4.70-6.10 [facility] RegionKmsoyhnDMVGQCJTLQ2174-75-29 15:41:00 Test Item Value Reference Range Interpretation Comments MPV (test code = MPV) 8.7 7.4-10.4 [facility] RegionIelpbmdSTAEEHYJMY0934-39-44 15:41:00 Test Item Value Reference Range Interpretation Comments Platelet (test code = Platelet) 278 133-450 [facility]CARD[facility] XJUZWIZ8814-76-01 15:41:00 Test Item Value Reference Range Interpretation Comments Troponin-I (test code no gt See_Comment [Auto mated message] The = Troponin-I) system which g enerated this result transmit nicko reference range : <=0.40. The reference r carlos was not used to interpr et this result as adebayo l/abnormal. [facility]2017-09-04 15:41:00 Test Item Value Reference Range Interpretation Comments Magnesium Lvl (test code = Magnesium 1.5 1.8-2.4 Lvl) [facility]2017-09-04 15:41:00 Test Item Value Reference Range Interpretation Comments Phosphorus (test code = Phosphorus) 2.0 2.5-4.5 [facility]2017-09-04 15:41:00 Test Item Value Reference Range Interpretation Comments eGFR (test code = eGFR) 23 [facility]2017-09-04 15:41:00 Test Item Value Reference Range Interpretation Comments ASPARTATE TRANSAMINASE 11 See_Comment [Aut omated message] (test code = ASPARTATE The s ystem which TRANSAMINASE) generated this result transmitted ref erence range: <=37. Th e reference range was not used to interpr et this result as normal/abnormal . [facility]2017-09-04 15:41:00 Test Item Value Reference Range Interpretation Comments Bili Total (test code = Bili Total) 0.5 0.2-1.3 [facility]2017-09-04 15:41:00 Test Item Value Reference Range Interpretation Comments Total Protein (test code = Total 8.3 6.4-8.4 Protein) [facility]2017-09-04 15:41:00 Test Item Value Reference Range Interpretation Comments CO2 (test code = CO2) 22 24-32 [facility]2017-09-04 15:41:00 Test Item Value Reference Range Interpretation Comments Calcium Lvl (test code = Calcium Lvl) 8.7 8.5-10.5 [facility]2017-09-04 15:41:00 Test Item Value Reference Range Interpretation Comments Potassium Lvl (test code = Potassium 3.9 3.5-5.1 Lvl) [facility]2017-09-04 15:41:00 Test Item Value Reference Range Interpretation Comments Chloride Lvl (test code = Chloride Lvl) 108 95-109 [facility]2017-09-04 15:41:00 Test Item Value Reference Range Interpretation Comments Creatinine Lvl (test code = Creatinine 2.82 0.50-1.40 Lvl) [facility]2017-09-04 15:41:00 Test Item Value Reference Range Interpretation Comments Sodium Lvl (test code = Sodium Lvl) 139 135-145 [facility]2017-09-04 15:41:00 Test Item Value Reference Range Interpretation Comments BUN (test code = BUN) 30 7-22 [facility]2017-09-04 15:41:00 Test Item Value Reference Range Interpretation Comments Glucose Lvl (test code = Glucose Lvl) 137 70-99 [facility]2017-09-04 15:41:00 Test Item Value Reference Range Interpretation Comments Albumin Lvl (test code = Albumin Lvl) 3.6 3.5-5.0 [facility]enGrayBugFORMERLY [facility]THEDCVM1328-41-96 15:41:00 Test Item Value Reference Range Interpretation Comments Alk Phos (test code = Alk Phos) 73 39-136 [facility]2017-09-04 15:41:00 Test Item Value Reference Range Interpretation Comments ALANINE AMINOTRANSFERASE 16 See_Comment [A utomated message] (test code = ALANINE The sys tem which AMINOTRANSFERASE) generated this result transmitted ref erence range: <=65. Th e reference range was not used to int erpret this result as normal/abnormal . [facility]2017-09-04 15:41:00 Test Item Value Reference Range Interpretation Comments A/G Ratio (test code = A/G Ratio) 0.8 0.7-1.6 [facility]2017-09-04 15:41:00 Test Item Value Reference Range Interpretation Comments B/C Ratio (test code = B/C Ratio) 11 6-25 [facility]2017-09-04 15:41:00 Test Item Value Reference Range Interpretation Comments Globulin (test code = Globulin) 4.7 2.7-4.2 [facility]2017-09-04 15:41:00 Test Item Value Reference Range Interpretation Comments AGAP (test code = AGAP) 12.9 10.0-20.0 [facility]2017-09-04 15:41:00 Test Item Value Reference Range Interpretation Comments Lipase Lvl (test code = Lipase Lvl) 144 73-[address] [facility] HospitalYuwnkdkTWFXQWHHZZ6435-40-26 15:41:00 Test Item Value Reference Range Interpretation Comments Segs (test code = Segs) 75.6 45.0-75.[address] [facility] HospitalGwubeecYHRUZARDXE3883-90-17 15:41:00 Test Item Value Reference Range Interpretation Comments Basophils # (test code 0.1 See_Comment [Aut omated message] The = Basophils #) system which generated this result tra nsmitted reference range : <=0.2. The reference r carlos was not used to int erpret this result as normal/abnormal . [facility] HospitalXfdtcezVEFIGANUJB2437-46-73 15:41:00 Test Item Value Reference Range Interpretation Comments Monocytes # (test code 0.9 See_Comment [Aut omated message] The = Monocytes #) system which generated this result tra nsmitted reference range : <=0.8. The reference r carlos was not used to int erpret this result as normal/abnormal . [facility] HospitalErhqiyoZJQKOOZKEZ3344-85-37 15:41:00 Test Item Value Reference Range Interpretation Comments Eosinophils # (test code 0.2 See_Comment [A utomated message] The = Eosinophils #) system [facility] h generated this result tra nsmitted reference range : <=0.5. The reference r carlos was not used to int erpret this result as normal/abnormal . [facility] HospitalVgldhyfMRCSYDSCKO3111-26-91 15:41:00 Test Item Value Reference Range Interpretation Comments Eosinophils (test code = 1.8 See_Comment [A utomated message] The Eosinophils) system which ge nerated this result tra nsmitted reference range : <=4.0. The reference r carlos was not used to int erpret this result as normal/abnormal . [facility] HospitalUgwztcxQMBFYTABXT2996-88-86 15:41:00 Test Item Value Reference Range Interpretation Comments Basophils (test code = 0.6 See_Comment [Aut omated message] The Basophils) system which ge nerated this result tra nsmitted reference range : <=1.0. The reference r carlos was not used to int erpret this result as normal/abnormal . [facility] HospitalHwkqebyCTCUTUJGJB1432-74-20 15:41:00 Test Item Value Reference Range Interpretation Comments Lymphocytes (test code = Lymphocytes) 14.5 20.0-40.[address] [facility] HospitalPghafzxYEMCZMNNFY7284-63-65 15:41:00 Test Item Value Reference Range Interpretation Comments Monocytes (test code = Monocytes) 7.5 2.0-12.[address] [facility] HospitalAfohvkgGEMXYELZMB3731-66-71 15:41:00 Test Item Value Reference Range Interpretation Comments Segs-Bands # (test code = Segs-Bands #) 9.4 1.5-8.[address] [facility] HospitalWstxjubQPVMZFXSCM0188-39-43 15:41:00 Test Item Value Reference Range Interpretation Comments Lymphocytes # (test code = Lymphocytes 1.8 1.0-5.5 #) [facility] HospitalPhmlqzkONCTUSPQVV8335-57-05 15:41:00 Test Item Value Reference Range Interpretation Comments MCV (test code = MCV) 88.5 80.0-94.[address] [facility] HospitalOskljkyKADWJUGCCZ1249-19-85 15:41:00 Test Item Value Reference Range Interpretation Comments MCH (test code = MCH) 29.3 pg 27.0-31.[address] [facility] HospitalJejcqxfGADIMRUUWE7287-49-54 15:41:00 Test Item Value Reference Range Interpretation Comments Hct (test code = Hct) 40.7 42.0-54.[address] [facility] HospitalQuduqhlCFUUFAPTZZ7003-23-88 15:41:00 Test Item Value Reference Range Interpretation Comments MCHC (test code = MCHC) 33.2 32.0-36.[address] [facility] HospitalYewrpjgYLWDTXZXNX0331-32-90 15:41:00 Test Item Value Reference Range Interpretation Comments RDW (test code = RDW) 15.1 11.5-14.[address] [facility] HospitalAoylnzzJUZTTXZMPI2866-88-67 15:41:00 Test Item Value Reference Range Interpretation Comments Hgb (test code = Hgb) 13.5 14.0-18.[address] [facility] HospitalAsqnevhMLVNJFSZPB1179-03-85 15:41:00 Test Item Value Reference Range Interpretation Comments WBC X 10x3 (test code = WBC X 10x3) 12.5 3.7-10.[address] [facility] HospitalTydjtlfTNLKDRSXOX0742-42-01 15:41:00 Test Item Value Reference Range Interpretation Comments RBC X 10x6 (test code = RBC X 10x6) 4.60 4.70-6.[address] [facility] HospitalJwuyafwTMCDCRCZVY9029-10-81 15:41:00 Test Item Value Reference Range Interpretation Comments MPV (test code = MPV) 8.7 7.4-10.[address] [facility] HospitalShckpnkEGDDVFFHCL4617-63-71 15:41:00 Test Item Value Reference Range Interpretation Comments Platelet (test code = Platelet) 278 133-450 [facility]2016-07-11 18:55:00 Test Item Value Reference Range Interpretation Comments Alk Phos (test code = Alk Phos) 60 39-136 [facility]2016-07-11 18:55:00 Test Item Value Reference Range Interpretation Comments BUN (test code = BUN) 31 7-22 [facility]2016-07-11 18:55:00 Test Item Value Reference Range Interpretation Comments Glucose Lvl (test code = Glucose Lvl) 81 70-99 [facility]2016-07-11 18:55:00 Test Item Value Reference Range Interpretation Comments Bili Total (test code = Bili Total) 0.4 0.2-1.3 [facility]2016-07-11 18:55:00 Test Item Value Reference Range Interpretation Comments Total Protein (test code = Total 7.4 6.4-8.4 Protein) [facility]2016-07-11 18:55:00 Test Item Value Reference Range Interpretation Comments Calcium Lvl (test code = Calcium Lvl) 8.5 8.5-10.5 [facility]2016-07-11 18:55:00 Test Item Value Reference Range Interpretation Comments ALANINE AMINOTRANSFERASE 15 See_Comment [A utomated message] (test code = ALANINE The sys tem which AMINOTRANSFERASE) generated this result transmitted ref erence range: <=65. Th e reference range was not used to int erpret this result as normal/abnormal . [facility]2016-07-11 18:55:00 Test Item Value Reference Range Interpretation Comments ASPARTATE TRANSAMINASE 12 See_Comment [Aut omated message] (test code = ASPARTATE The s ystem which TRANSAMINASE) generated this result transmitted ref erence range: <=37. Th e reference range was not used to interpr et this result as normal/abnormal . [facility] HospitalSigbidyOIMNEWYVTH3331-66-36 18:55:00 Test Item Value Reference Range Interpretation Comments Eosinophils (test code = 2.6 See_Comment [A utomated message] The Eosinophils) system which ge nerated this result tra nsmitted reference range : <=4.0. The reference r carlos was not used to int erpret this result as normal/abnormal . [facility] HospitalNisvtntLOTKXPYUAU3249-53-82 18:55:00 Test Item Value Reference Range Interpretation Comments Lymphocytes (test code = Lymphocytes) 23.1 20.0-40.[address] [facility] HospitalUfguysvIXKWSPCEDX5198-68-41 18:55:00 Test Item Value Reference Range Interpretation Comments Monocytes (test code = Monocytes) 9.4 2.0-12.[address] [facility] HospitalHtlthyuZNPROYHETK6681-94-67 18:55:00 Test Item Value Reference Range Interpretation Comments Eosinophils # (test code 0.2 See_Comment [A utomated message] The = Eosinophils #) system whic h generated this result tra nsmitted reference range : <=0.5. The reference r carlos was not used to int erpret this result as normal/abnormal . [facility] HospitalOcqzwysOWHNCOUUGP9752-14-17 18:55:00 Test Item Value Reference Range Interpretation Comments Basophils # (test code 0.1 See_Comment [Aut omated message] The = Basophils #) system which generated this result tra nsmitted reference range : <=0.2. The reference r carlos was not used to int erpret this result as normal/abnormal . [facility] HospitalOwqdbywUXFJIHZZRI4190-63-68 18:55:00 Test Item Value Reference Range Interpretation Comments Basophils (test code = 0.8 See_Comment [Aut omated message] The Basophils) system which ge nerated this result tra nsmitted reference range : <=1.0. The reference r carlos was not used to int erpret this result as normal/abnormal . [facility] HospitalTbcnwcpQJOXSEMJYW9354-39-12 18:55:00 Test Item Value Reference Range Interpretation Comments Lymphocytes # (test code = Lymphocytes 1.8 1.0-5.5 #) [facility] HospitalCotanogIYEKCZSSPK7406-19-10 18:55:00 Test Item Value Reference Range Interpretation Comments Monocytes # (test code 0.7 See_Comment [Aut omated message] The = Monocytes #) system which generated this result tra nsmitted reference range : <=0.8. The reference r carlos was not used to int erpret this result as normal/abnormal . [facility] HospitalVeycacwLFQSDZWGCS5907-63-50 18:55:00 Test Item Value Reference Range Interpretation Comments Segs-Bands # (test code = Segs-Bands #) 5.0 1.5-8.[address] [facility] HospitalLkpbkdnVYHBHCZLLH8350-19-71 18:55:00 Test Item Value Reference Range Interpretation Comments Segs (test code = Segs) 64.1 45.0-75.[address] [facility] HospitalDnrfochYDQOXDHGCU0603-22-93 18:55:00 Test Item Value Reference Range Interpretation Comments Platelet (test code = Platelet) 193 133-[address] [facility] HospitalOmdirrfAKCEGOIISO7280-54-92 18:55:00 Test Item Value Reference Range Interpretation Comments MPV (test code = MPV) 8.5 7.4-10.[address] [facility] HospitalNxyislbFHCLXDUHBE9641-16-43 18:55:00 Test Item Value Reference Range Interpretation Comments RDW (test code = RDW) 17.0 11.5-14.[address] [facility] HospitalVysnhrdYODJMMTJNW8343-97-84 18:55:00 Test Item Value Reference Range Interpretation Comments MCHC (test code = MCHC) 32.5 32.0-36.[address] [facility] HospitalZmoowbnANBPXVPSOV4358-72-92 18:55:00 Test Item Value Reference Range Interpretation Comments MCV (test code = MCV) 89.4 80.0-94.[address] [facility] HospitalLyeocmpYFPRSBFVTW8805-06-54 18:55:00 Test Item Value Reference Range Interpretation Comments RBC X 10x6 (test code = RBC X 10x6) 4.19 4.70-6.[address] [facility] HospitalPbjvhrrVODYUMNBTZ0396-12-28 18:55:00 Test Item Value Reference Range Interpretation Comments MCH (test code = MCH) 29.1 pg 27.0-31.[address] [facility] HospitalNxnlyyiUGEMWMNGOO2476-15-52 18:55:00 Test Item Value Reference Range Interpretation Comments Hct (test code = Hct) 37.5 42.0-54.[address] [facility] HospitalRlncemjCVULFAWPPC6486-30-47 18:55:00 Test Item Value Reference Range Interpretation Comments Hgb (test code = Hgb) 12.2 14.0-18.[address] [facility] HospitalRjbswufLCKCNIZVKE8132-72-19 18:55:00 Test Item Value Reference Range Interpretation Comments WBC X 10x3 (test code = WBC X 10x3) 7.8 3.7-10.4 [place] [address]2016-07-11 18:55:00 Test Item Value Reference Range Interpretation Comments Grp A Strep Scr (test Negative (09/10/15 1:55 code = Grp A Strep PM) Scr) [facility]2016-07-11 18:55:00 Test Item Value Reference Range Interpretation Comments B/C Ratio (test code = B/C Ratio) 13 6-25 [facility]2016-07-11 18:55:00 Test Item Value Reference Range Interpretation Comments Globulin (test code = Globulin) 3.9 2.0-4.0 [facility]2016-07-11 18:55:00 Test Item Value Reference Range Interpretation Comments A/G Ratio (test code = A/G Ratio) 0.9 0.7-1.6 [facility]2016-07-11 18:55:00 Test Item Value Reference Range Interpretation Comments AGAP (test code = AGAP) 8.6 10.0-20.0 [facility]2016-07-11 18:55:00 Test Item Value Reference Range Interpretation Comments eGFR (test code = eGFR) 27 [facility]2016-07-11 18:55:00 Test Item Value Reference Range Interpretation Comments Sodium Lvl (test code = Sodium Lvl) 142 135-145 [facility]2016-07-11 18:55:00 Test Item Value Reference Range Interpretation Comments Potassium Lvl (test code = Potassium 4.6 3.5-5.1 Lvl) [facility]2016-07-11 18:55:00 Test Item Value Reference Range Interpretation Comments Creatinine Lvl (test code = Creatinine 2.45 0.50-1.40 Lvl) [facility]2016-07-11 18:55:00 Test Item Value Reference Range Interpretation Comments Chloride Lvl (test code = Chloride Lvl) 110 95-109 [facility]2016-07-11 18:55:00 Test Item Value Reference Range Interpretation Comments CO2 (test code = CO2) 28 24-32 [facility]2016-07-11 18:55:00 Test Item Value Reference Range Interpretation Comments Albumin Lvl (test code = Albumin Lvl) 3.5 3.5-5.0 [facility]2016-07-11 18:55:00 Test Item Value Reference Range Interpretation Comments Alk Phos (test code = Alk Phos) 60 39-136 [facility]2016-07-11 18:55:00 Test Item Value Reference Range Interpretation Comments BUN (test code = BUN) 31 7-22 [facility]2016-07-11 18:55:00 Test Item Value Reference Range Interpretation Comments Glucose Lvl (test code = Glucose Lvl) 81 70-99 [facility]2016-07-11 18:55:00 Test Item Value Reference Range Interpretation Comments Bili Total (test code = Bili Total) 0.4 0.2-1.3 [facility]2016-07-11 18:55:00 Test Item Value Reference Range Interpretation Comments Total Protein (test code = Total 7.4 6.4-8.4 Protein) [facility]2016-07-11 18:55:00 Test Item Value Reference Range Interpretation Comments Calcium Lvl (test code = Calcium Lvl) 8.5 8.5-10.5 [facility]2016-07-11 18:55:00 Test Item Value Reference Range Interpretation Comments ALANINE AMINOTRANSFERASE 15 See_Comment [A utomated message] (test code = ALANINE The sys tem which AMINOTRANSFERASE) generated this result transmitted ref erence range: <=65. Th e reference range was not used to int erpret this result as normal/abnormal . [facility]2016-07-11 18:55:00 Test Item Value Reference Range Interpretation Comments ASPARTATE TRANSAMINASE 12 See_Comment [Aut omated message] (test code = ASPARTATE The s ystem which TRANSAMINASE) generated this result transmitted ref erence range: <=37. Th e reference range was not used to interpr et this result as normal/abnormal . [facility] HospitalYhzfdzpPVZNIQBHYX5845-45-45 18:55:00 Test Item Value Reference Range Interpretation Comments Eosinophils (test code = 2.6 See_Comment [A utomated message] The Eosinophils) system which ge nerated this result tra nsmitted reference range : <=4.0. The reference r carlos was not used to int erpret this result as normal/abnormal . [facility] HospitalZvqigdrDZPEDWJGUU4968-95-16 18:55:00 Test Item Value Reference Range Interpretation Comments Lymphocytes (test code = Lymphocytes) 23.1 20.0-40.[address] [facility] HospitalMjomtcoBTKAMDHYYK1914-82-06 18:55:00 Test Item Value Reference Range Interpretation Comments Monocytes (test code = Monocytes) 9.4 2.0-12.0 [place] 624206-07-11 18:55:00 Test Item Value Reference Range Interpretation Comments Eosinophils # (test code 0.2 See_Comment [A utomated message] The = Eosinophils #) system whic h generated this result tra nsmitted reference range : <=0.5. The reference r carlos was not used to int erpret this result as normal/abnormal . [facility] HospitalZojaaobFZOOQRIONI3277-26-46 18:55:00 Test Item Value Reference Range Interpretation Comments Basophils # (test code 0.1 See_Comment [Aut omated message] The = Basophils #) system which generated this result tra nsmitted reference range : <=0.2. The reference r carlos was not used to int erpret this result as normal/abnormal . [facility] HospitalCzfeokvCYIYITAXUG4917-07-19 18:55:00 Test Item Value Reference Range Interpretation Comments Basophils (test code = 0.8 See_Comment [Aut omated message] The Basophils) system which ge nerated this result tra nsmitted reference range : <=1.0. The reference r carlos was not used to int erpret this result as normal/abnormal . [facility] HospitalYdvrwiiWFTMZNFHQL5853-86-06 18:55:00 Test Item Value Reference Range Interpretation Comments Lymphocytes # (test code = Lymphocytes 1.8 1.0-5.5 #) [facility] HospitalPipuxvfAYRJLYWENR2813-02-52 18:55:00 Test Item Value Reference Range Interpretation Comments Monocytes # (test code 0.7 See_Comment [Aut omated message] The = Monocytes #) system which generated this result tra nsmitted reference range : <=0.8. The reference r carlos was not used to int erpret this result as normal/abnormal . [facility] HospitalCodlpsqARFIZNADAC5516-84-25 18:55:00 Test Item Value Reference Range Interpretation Comments Segs-Bands # (test code = Segs-Bands #) 5.0 1.5-8.[address] [facility] HospitalMsfedbnRXQCDZWJUT7745-72-57 18:55:00 Test Item Value Reference Range Interpretation Comments Segs (test code = Segs) 64.1 45.0-75.[address] [facility] HospitalJpkdvohKVPTIOGSCF8482-32-79 18:55:00 Test Item Value Reference Range Interpretation Comments Platelet (test code = Platelet) 193 133-[address] [facility] HospitalVkpygxpUSTEHDLNTH5140-85-59 18:55:00 Test Item Value Reference Range Interpretation Comments MPV (test code = MPV) 8.5 7.4-10.[address] [facility] HospitalRekgzdlVMROKDGODO6340-64-54 18:55:00 Test Item Value Reference Range Interpretation Comments RDW (test code = RDW) 17.0 11.5-14.[address] [facility] HospitalHniobnzRQTMIFKFSM3697-84-91 18:55:00 Test Item Value Reference Range Interpretation Comments MCHC (test code = MCHC) 32.5 32.0-36.[address] [facility] HospitalOfutkqcVOEVGGAUVA1341-85-89 18:55:00 Test Item Value Reference Range Interpretation Comments MCV (test code = MCV) 89.4 80.0-94.[address] [facility] HospitalUqxopxeZKAZYSTVDX1414-64-92 18:55:00 Test Item Value Reference Range Interpretation Comments RBC X 10x6 (test code = RBC X 10x6) 4.19 4.70-6.[address] [facility] HospitalSuefortTRQLRWAYIN5955-41-41 18:55:00 Test Item Value Reference Range Interpretation Comments MCH (test code = MCH) 29.1 pg 27.0-31.[address] [facility] HospitalBihxiacQBJIMHBHXF5247-31-31 18:55:00 Test Item Value Reference Range Interpretation Comments Hct (test code = Hct) 37.5 42.0-54.[address] [facility] HospitalVxruaqcRJOXFBMLPS0792-95-63 18:55:00 Test Item Value Reference Range Interpretation Comments Hgb (test code = Hgb) 12.2 14.0-18.[address] [facility] HospitalOuroxlgMUSKWONMBS5342-99-19 18:55:00 Test Item Value Reference Range Interpretation Comments WBC X 10x3 (test code = WBC X 10x3) 7.8 3.7-10.4 [place] [address]2016-07-11 18:55:00 Test Item Value Reference Range Interpretation Comments Grp A Strep Scr (test Negative (09/10/15 1:55 code = Grp A Strep PM) Scr) [facility] [id number] 18:55:00 Test Item Value Reference Range Interpretation Comments B/C Ratio (test code = B/C Ratio) 13 6-25 [facility] [id number] 18:55:00 Test Item Value Reference Range Interpretation Comments Globulin (test code = Globulin) 3.9 2.0-4.0 [facility]2016-07-11 18:55:00 Test Item Value Reference Range Interpretation Comments A/G Ratio (test code = A/G Ratio) 0.9 0.7-1.6 [facility]2016-07-11 18:55:00 Test Item Value Reference Range Interpretation Comments AGAP (test code = AGAP) 8.6 10.0-20.0 [facility]2016-07-11 18:55:00 Test Item Value Reference Range Interpretation Comments eGFR (test code = eGFR) 27 [facility]2016-07-11 18:55:00 Test Item Value Reference Range Interpretation Comments Sodium Lvl (test code = Sodium Lvl) 142 135-145 [facility]2016-07-11 18:55:00 Test Item Value Reference Range Interpretation Comments Potassium Lvl (test code = Potassium 4.6 3.5-5.1 Lvl) [facility]2016-07-11 18:55:00 Test Item Value Reference Range Interpretation Comments Creatinine Lvl (test code = Creatinine 2.45 0.50-1.40 Lvl) [facility]2016-07-11 18:55:00 Test Item Value Reference Range Interpretation Comments Chloride Lvl (test code = Chloride Lvl) 110 95-109 [facility]2016-07-11 18:55:00 Test Item Value Reference Range Interpretation Comments CO2 (test code = CO2) 28 24-32 [facility]2016-07-11 18:55:00 Test Item Value Reference Range Interpretation Comments Albumin Lvl (test code = Albumin Lvl) 3.5 3.5-5.0 [facility]2016-07-11 18:55:00 Test Item Value Reference Range Interpretation Comments Alk Phos (test code = Alk Phos) 60 39-136 [facility]2016-07-11 18:55:00 Test Item Value Reference Range Interpretation Comments BUN (test code = BUN) 31 7-22 [facility]2016-07-11 18:55:00 Test Item Value Reference Range Interpretation Comments Glucose Lvl (test code = Glucose Lvl) 81 70-99 [facility]2016-07-11 18:55:00 Test Item Value Reference Range Interpretation Comments Bili Total (test code = Bili Total) 0.4 0.2-1.3 [facility]2016-07-11 18:55:00 Test Item Value Reference Range Interpretation Comments Total Protein (test code = Total 7.4 6.4-8.4 Protein) [facility]2016-07-11 18:55:00 Test Item Value Reference Range Interpretation Comments Calcium Lvl (test code = Calcium Lvl) 8.5 8.5-10.5 [facility]2016-07-11 18:55:00 Test Item Value Reference Range Interpretation Comments ALANINE AMINOTRANSFERASE 15 See_Comment [A utomated message] (test code = ALANINE The sys tem which AMINOTRANSFERASE) generated this result transmitted ref erence range: <=65. Th e reference range was not used to int erpret this result as normal/abnormal . [facility]2016-07-11 18:55:00 Test Item Value Reference Range Interpretation Comments ASPARTATE TRANSAMINASE 12 See_Comment [Aut omated message] (test code = ASPARTATE The s ystem which TRANSAMINASE) generated this result transmitted ref erence range: <=37. Th e reference range was not used to interpr et this result as normal/abnormal . [facility] HospitalPdlqhotAWBETQNECD5097-84-79 18:55:00 Test Item Value Reference Range Interpretation Comments Eosinophils (test code = 2.6 See_Comment [A utomated message] The Eosinophils) system which ge nerated this result tra nsmitted reference range : <=4.0. The reference r carlos was not used to int erpret this result as normal/abnormal . [facility] HospitalCgeqqrmXQJKRBFNIN4161-24-11 18:55:00 Test Item Value Reference Range Interpretation Comments Lymphocytes (test code = Lymphocytes) 23.1 20.0-40.[address] [facility] HospitalXhnykhwXVQJNLZVON9226-66-91 18:55:00 Test Item Value Reference Range Interpretation Comments Monocytes (test code = Monocytes) 9.4 2.0-12.[address] [facility] HospitalVxfkczjIIPRAPWBYE4120-23-97 18:55:00 Test Item Value Reference Range Interpretation Comments Eosinophils # (test code 0.2 See_Comment [A utomated message] The = Eosinophils #) system whic h generated this result tra nsmitted reference range : <=0.5. The reference r carlos was not used to int erpret this result as normal/abnormal . [facility] HospitalYwinnsaJUIRVNZOIT9611-13-40 18:55:00 Test Item Value Reference Range Interpretation Comments Basophils # (test code 0.1 See_Comment [Aut omated message] The = Basophils #) system which generated this result tra nsmitted reference range : <=0.2. The reference r carlos was not used to int erpret this result as normal/abnormal . [facility] HospitalNfhbxnwWHMUMWMEMD8720-34-45 18:55:00 Test Item Value Reference Range Interpretation Comments Basophils (test code = 0.8 See_Comment [Aut omated message] The Basophils) system which ge nerated this result tra nsmitted reference range : <=1.0. The reference r carlos was not used to int erpret this result as normal/abnormal . [facility] HospitalIpdrrcvCFVMDIWUAJ9264-45-77 18:55:00 Test Item Value Reference Range Interpretation Comments Lymphocytes # (test code = Lymphocytes 1.8 1.0-5.5 #) [facility] HospitalFuagndiCETABKQVDZ5556-02-07 18:55:00 Test Item Value Reference Range Interpretation Comments Monocytes # (test code 0.7 See_Comment [Aut omated message] The = Monocytes #) system which generated this result tra nsmitted reference range : <=0.8. The reference r carlos was not used to int erpret this result as normal/abnormal . [facility] HospitalEfflaceKPRDKJTDIE2269-54-61 18:55:00 Test Item Value Reference Range Interpretation Comments Segs-Bands # (test code = Segs-Bands #) 5.0 1.5-8.[address] [facility] HospitalKbainxkUYCZAUHAGV0943-64-79 18:55:00 Test Item Value Reference Range Interpretation Comments Segs (test code = Segs) 64.1 45.0-75.[address] HospitalZwbwrrrKJPTNBSCNQ8980-99-35 18:55:00 Test Item Value Reference Range Interpretation Comments Platelet (test code = Platelet) 193 133-[address] [facility] HospitalVfhacbtEMXIWICHCU1640-70-94 18:55:00 Test Item Value Reference Range Interpretation Comments MPV (test code = MPV) 8.5 7.4-10.[address] [facility] HospitalXfdsinvRAMWQKSHPM2445-91-17 18:55:00 Test Item Value Reference Range Interpretation Comments RDW (test code = RDW) 17.0 11.5-14.[address] [facility] HospitalSvxncdmCGBPSSGOLN9252-37-79 18:55:00 Test Item Value Reference Range Interpretation Comments MCHC (test code = MCHC) 32.5 32.0-36.[address] [facility] HospitalAzqyzbfXYMGIYGGHA9851-06-26 18:55:00 Test Item Value Reference Range Interpretation Comments MCV (test code = MCV) 89.4 80.0-94.[address] [facility] HospitalRwxwnmnEHTDKQIMEV9172-52-95 18:55:00 Test Item Value Reference Range Interpretation Comments RBC X 10x6 (test code = RBC X 10x6) 4.19 4.70-6.[address] [facility] HospitalYbzhvcmVAOJQQBDBM6209-32-43 18:55:00 Test Item Value Reference Range Interpretation Comments MCH (test code = MCH) 29.1 pg 27.0-31.[address] [facility] HospitalBiuotypWIKDMOBHRG4004-66-77 18:55:00 Test Item Value Reference Range Interpretation Comments Hct (test code = Hct) 37.5 42.0-54.[address] [facility] HospitalRobqyfiXIWMJBJDUN9938-72-47 18:55:00 Test Item Value Reference Range Interpretation Comments Hgb (test code = Hgb) 12.2 14.0-18.[address] [facility] HospitalHhcppvuMXVYKXRXGX1255-20-14 18:55:00 Test Item Value Reference Range Interpretation Comments WBC X 10x3 (test code = WBC X 10x3) 7.8 3.7-10.4 [place] [address]2016-07-11 18:55:00 Test Item Value Reference Range Interpretation Comments Grp A Strep Scr (test Negative (09/10/15 1:55 code = Grp A Strep PM) Scr) [facility]2016-07-11 18:55:00 Test Item Value Reference Range Interpretation Comments B/C Ratio (test code = B/C Ratio) 13 6-25 [facility]2016-07-11 18:55:00 Test Item Value Reference Range Interpretation Comments Globulin (test code = Globulin) 3.9 2.0-4.0 [facility]2016-07-11 18:55:00 Test Item Value Reference Range Interpretation Comments A/G Ratio (test code = A/G Ratio) 0.9 0.7-1.6 [facility]2016-07-11 18:55:00 Test Item Value Reference Range Interpretation Comments AGAP (test code = AGAP) 8.6 10.0-20.0 [facility]2016-07-11 18:55:00 Test Item Value Reference Range Interpretation Comments eGFR (test code = eGFR) 27 [facility]2016-07-11 18:55:00 Test Item Value Reference Range Interpretation Comments Sodium Lvl (test code = Sodium Lvl) 142 135-145 [facility]2016-07-11 18:55:00 Test Item Value Reference Range Interpretation Comments Potassium Lvl (test code = Potassium 4.6 3.5-5.1 Lvl) [facility]2016-07-11 18:55:00 Test Item Value Reference Range Interpretation Comments Creatinine Lvl (test code = Creatinine 2.45 0.50-1.40 Lvl) [facility]2016-07-11 18:55:00 Test Item Value Reference Range Interpretation Comments Chloride Lvl (test code = Chloride Lvl) 110 95-109 [facility]2016-07-11 18:55:00 Test Item Value Reference Range Interpretation Comments CO2 (test code = CO2) 28 24-32 [facility]2016-07-11 18:55:00 Test Item Value Reference Range Interpretation Comments Albumin Lvl (test code = Albumin Lvl) 3.5 3.5-5.0 [facility]2016-07-11 18:55:00 Test Item Value Reference Range Interpretation Comments B/C Ratio (test code = B/C Ratio) 13 6-25 [facility]2016-07-11 18:55:00 Test Item Value Reference Range Interpretation Comments Globulin (test code = Globulin) 3.9 2.0-4.0 [facility]2016-07-11 18:55:00 Test Item Value Reference Range Interpretation Comments A/G Ratio (test code = A/G Ratio) 0.9 0.7-1.6 [facility]2016-07-11 18:55:00 Test Item Value Reference Range Interpretation Comments AGAP (test code = AGAP) 8.6 10.0-20.0 [facility]2016-07-11 18:55:00 Test Item Value Reference Range Interpretation Comments eGFR (test code = eGFR) 27 [facility]2016-07-11 18:55:00 Test Item Value Reference Range Interpretation Comments Sodium Lvl (test code = Sodium Lvl) 142 135-145 [facility]2016-07-11 18:55:00 Test Item Value Reference Range Interpretation Comments Potassium Lvl (test code = Potassium 4.6 3.5-5.1 Lvl) [facility]2016-07-11 18:55:00 Test Item Value Reference Range Interpretation Comments Creatinine Lvl (test code = Creatinine 2.45 0.50-1.40 Lvl) [facility]2016-07-11 18:55:00 Test Item Value Reference Range Interpretation Comments Chloride Lvl (test code = Chloride Lvl) 110 95-109 [facility]2016-07-11 18:55:00 Test Item Value Reference Range Interpretation Comments CO2 (test code = CO2) 28 24-32 [facility]2016-07-11 18:55:00 Test Item Value Reference Range Interpretation Comments Albumin Lvl (test code = Albumin Lvl) 3.5 3.5-5.0 [facility]2016-07-11 18:55:00 Test Item Value Reference Range Interpretation Comments Alk Phos (test code = Alk Phos) 60 39-136 [facility]2016-07-11 18:55:00 Test Item Value Reference Range Interpretation Comments BUN (test code = BUN) 31 7-22 [facility]2016-07-11 18:55:00 Test Item Value Reference Range Interpretation Comments Glucose Lvl (test code = Glucose Lvl) 81 70-99 [facility]2016-07-11 18:55:00 Test Item Value Reference Range Interpretation Comments Bili Total (test code = Bili Total) 0.4 0.2-1.3 [facility]2016-07-11 18:55:00 Test Item Value Reference Range Interpretation Comments Total Protein (test code = Total 7.4 6.4-8.4 Protein) [facility]2016-07-11 18:55:00 Test Item Value Reference Range Interpretation Comments Calcium Lvl (test code = Calcium Lvl) 8.5 8.5-10.5 [facility]2016-07-11 18:55:00 Test Item Value Reference Range Interpretation Comments ALANINE AMINOTRANSFERASE 15 See_Comment [A utomated message] (test code = ALANINE The sys tem which AMINOTRANSFERASE) generated this result transmitted ref erence range: <=65. Th e reference range was not used to int erpret this result as normal/abnormal . [facility]2016-07-11 18:55:00 Test Item Value Reference Range Interpretation Comments ASPARTATE TRANSAMINASE 12 See_Comment [Aut omated message] (test code = ASPARTATE The s ystem which TRANSAMINASE) generated this result transmitted ref erence range: <=37. Th e reference range was not used to interpr et this result as normal/abnormal . [facility] HospitalUkdfesvUSINLIOEXL3487-73-24 18:55:00 Test Item Value Reference Range Interpretation Comments Eosinophils (test code = 2.6 See_Comment [A utomated message] The Eosinophils) system which ge nerated this result tra nsmitted reference range : <=4.0. The reference r carlos was not used to int erpret this result as normal/abnormal . [facility] HospitalPblahqoXUBVHEFHQB7616-10-42 18:55:00 Test Item Value Reference Range Interpretation Comments Lymphocytes (test code = Lymphocytes) 23.1 20.0-40.[address] [facility] HospitalXwwixrcWQUTGVZEGY6914-65-80 18:55:00 Test Item Value Reference Range Interpretation Comments Monocytes (test code = Monocytes) 9.4 2.0-12.[address] [facility] HospitalHveqrqvZHSPQQWEHP8839-97-55 18:55:00 Test Item Value Reference Range Interpretation Comments Eosinophils # (test code 0.2 See_Comment [A utomated message] The = Eosinophils #) system wh h generated this result tra nsmitted reference range : <=0.5. The reference r carlos was not used to int erpret this result as normal/abnormal . [facility] H[id number] 18:55:00 Test Item Value Reference Range Interpretation Comments Basophils # (test code 0.1 See_Comment [Aut omated message] The = Basophils #) system which generated this result tra nsmitted reference range : <=0.2. The reference r carlos was not used to int erpret this result as normal/abnormal . [facility] H[id number] 18:55:00 Test Item Value Reference Range Interpretation Comments Basophils (test code = 0.8 See_Comment [Aut omated message] The Basophils) system which ge nerated this result tra nsmitted reference range : <=1.0. The reference r carlos was not used to int erpret this result as normal/abnormal . [facility] Hospit[id number] 18:55:00 Test Item Value Reference Range Interpretation Comments Lymphocytes # (test code = Lymphocytes 1.8 1.0-5.5 #) [facility] Hospit[id number] 18:55:00 Test Item Value Reference Range Interpretation Comments Monocytes # (test code 0.7 See_Comment [Aut omated message] The = Monocytes #) system which generated this result tra nsmitted reference range : <=0.8. The reference r carlos was not used to int erpret this result as normal/abnormal . [facility] H[id number] 18:55:00 Test Item Value Reference Range Interpretation Comments Segs-Bands # (test code = Segs-Bands #) 5.0 1.5-8.[address] [facility] HospitalGxdokmxMRJCZUASYO8303-13-07 18:55:00 Test Item Value Reference Range Interpretation Comments Segs (test code = Segs) 64.1 45.0-75.[address] [facility] HospitalOhvlsvpTWUIERXSYQ4816-82-80 18:55:00 Test Item Value Reference Range Interpretation Comments Platelet (test code = Platelet) 193 133-[address] [facility] HospitalEmrojzaYJUPSRFUQG1506-76-44 18:55:00 Test Item Value Reference Range Interpretation Comments MPV (test code = MPV) 8.5 7.4-10.[address] [facility] HospitalNdjtijlCDJZRWQJAS6289-72-61 18:55:00 Test Item Value Reference Range Interpretation Comments RDW (test code = RDW) 17.0 11.5-14.[address] Hospit[id number] 18:55:00 Test Item Value Reference Range Interpretation Comments MCHC (test code = MCHC) 32.5 32.0-36.[address] [facility] Hospit[id number] 18:55:00 Test Item Value Reference Range Interpretation Comments MCV (test code = MCV) 89.4 80.0-94.[address] HospitalRwxmejgAILIDPUVNM7251-00-66 18:55:00 Test Item Value Reference Range Interpretation Comments RBC X 10x6 (test code = RBC X 10x6) 4.19 4.70-6.[address] HospitalErklgcqAOVSSCOJCH6415-35-96 18:55:00 Test Item Value Reference Range Interpretation Comments MCH (test code = MCH) 29.1 pg 27.0-31.[address] HospitalRfozkwdLHWFLPGLSH4042-07-08 18:55:00 Test Item Value Reference Range Interpretation Comments Hct (test code = Hct) 37.5 42.0-54.[address] [facility] Hos[id number] 18:55:00 Test Item Value Reference Range Interpretation Comments Hgb (test code = Hgb) 12.2 14.0-18.[address] [facility] HospitalQusbyrrMOFGMECBWJ3851-71-05 18:55:00 Test Item Value Reference Range Interpretation Comments WBC X 10x3 (test code = WBC X 10x3) 7.8 3.7-10.4 [place] [id number] 18:55:00 Test Item Value Reference Range Interpretation Comments Grp A Strep Scr (test Negative (09/10/15 1:55 code = Grp A Strep PM) Scr) [facility] AND [id number] 16:22:00 Test Item Value Reference Range Interpretation Comments UA Nitrite (test code Negative (06/20/15 11:22 = UA Nitrite) AM) [facility] AND [id number] 16:22:00 Test Item Value Reference Range Interpretation Comments UA Urobilinogen (test code = UA 0.2 0.1-1.0 Urobilinogen) [facility] AND [id number] 16:22:00 Test Item Value Reference Range Interpretation Comments UA Leuk Est (test Negative (06/20/15 11:22 code = UA Leuk Est) AM) [facility] AND [id number] 16:22:00 Test Item Value Reference Range Interpretation Comments UA RBC (test code = 0-2 /HPF See_Comment [Automa nicko message] The UA RBC) system which ge nerated this result tra nsmitted reference range : <=2. The reference range was not used to interpr et this result as adebayo l/abnormal. [facility] AND [id number] 16:22:00 Test Item Value Reference Range Interpretation Comments UA WBC (test code = UA WBC) 0-2 /HPF [facility] AND [id number] 16:22:00 Test Item Value Reference Range Interpretation Comments UA Bacteria (test code = UA Few /HPF Bacteria) [facility] AND [id number] 16:22:00 Test Item Value Reference Range Interpretation Comments UA Sq Epi (test code = UA Sq Epi) Rare /LPF [facility] AND [id number] 16:22:00 Test Item Value Reference Range Interpretation Comments UA Glucose (test code Negative (06/20/15 11:22 = UA Glucose) AM) [facility] AND [id number] 16:22:00 Test Item Value Reference Range Interpretation Comments UA Blood (test code = Negative (06/20/15 11:22 UA Blood) AM) [facility] AND [id number] 16:22:00 Test Item Value Reference Range Interpretation Comments UA Ketones (test code Negative *NA*(06/20/15 = UA Ketones) 11:22 AM) [facility] AND [id number] 16:22:00 Test Item Value Reference Range Interpretation Comments UA Bili (test code = Negative *NA*(06/20/15 UA Bili) 11:22 AM) [facility] AND [id number] 16:22:00 Test Item Value Reference Range Interpretation Comments UA Color (test code = Yellow *NA*(06/20/15 UA Color) 11:22 AM) [facility] AND [id number] 16:22:00 Test Item Value Reference Range Interpretation Comments UA Turbidity (test code = Clear (06/20/15 11:22 UA Turbidity) AM) [facility] AND [id number] 16:22:00 Test Item Value Reference Range Interpretation Comments UA pH (test code = UA pH) 6.0 1 5.0-8.0 [facility] AND [id number] 16:22:00 Test Item Value Reference Range Interpretation Comments UA Spec Grav (test code = UA Spec 1.010 1 Grav) [facility] AND [id number] 16:22:00 Test Item Value Reference Range Interpretation Comments UA Protein (test code = UA Protein) 30 mg/dL [facility] AND [id number] 16:22:00 Test Item Value Reference Range Interpretation Comments UA Nitrite (test code Negative (06/20/15 11:22 = UA Nitrite) AM) [facility] AND [id number] 16:22:00 Test Item Value Reference Range Interpretation Comments UA Urobilinogen (test code = UA 0.2 0.1-1.0 Urobilinogen) [facility] AND [id number] 16:22:00 Test Item Value Reference Range Interpretation Comments UA Leuk Est (test Negative (06/20/15 11:22 code = UA Leuk Est) AM) [facility] AND [id number] 16:22:00 Test Item Value Reference Range Interpretation Comments UA RBC (test code = 0-2 /HPF See_Comment [Automa nicko message] The UA RBC) system which ge nerated this result tra nsmitted reference range : <=2. The reference range was not used to interpr et this result as adebayo l/abnormal. [facility] AND [id number] 16:22:00 Test Item Value Reference Range Interpretation Comments UA WBC (test code = UA WBC) 0-2 /HPF [facility] AND [id number] 16:22:00 Test Item Value Reference Range Interpretation Comments UA Bacteria (test code = UA Few /HPF Bacteria) [facility] AND [id number] 16:22:00 Test Item Value Reference Range Interpretation Comments UA Sq Epi (test code = UA Sq Epi) Rare /LPF [facility] AND [id number] 16:22:00 Test Item Value Reference Range Interpretation Comments UA Glucose (test code Negative (06/20/15 11:22 = UA Glucose) AM) [facility] AND [id number] 16:22:00 Test Item Value Reference Range Interpretation Comments UA Blood (test code = Negative (06/20/15 11:22 UA Blood) AM) [facility] AND [id number] 16:22:00 Test Item Value Reference Range Interpretation Comments UA Ketones (test code Negative *NA*(06/20/15 = UA Ketones) 11:22 AM) [facility] AND [id number] 16:22:00 Test Item Value Reference Range Interpretation Comments UA Bili (test code = Negative *NA*(06/20/15 UA Bili) 11:22 AM) [facility] AND [id number] 16:22:00 Test Item Value Reference Range Interpretation Comments UA Color (test code = Yellow *NA*(06/20/15 UA Color) 11:22 AM) [facility] AND [id number] 16:22:00 Test Item Value Reference Range Interpretation Comments UA Turbidity (test code = Clear (06/20/15 11:22 UA Turbidity) AM) [facility] AND [id number] 16:22:00 Test Item Value Reference Range Interpretation Comments UA pH (test code = UA pH) 6.0 1 5.0-8.0 [facility] AND [id number] 16:22:00 Test Item Value Reference Range Interpretation Comments UA Spec Grav (test code = UA Spec 1.010 1 Grav) [facility] AND [id number] 16:22:00 Test Item Value Reference Range Interpretation Comments UA Protein (test code = UA Protein) 30 mg/dL [facility] AND [id number] 16:22:00 Test Item Value Reference Range Interpretation Comments UA Nitrite (test code Negative (06/20/15 11:22 = UA Nitrite) AM) [facility] AND [id number] 16:22:00 Test Item Value Reference Range Interpretation Comments UA Urobilinogen (test code = UA 0.2 0.1-1.0 Urobilinogen) [facility] AND [id number] 16:22:00 Test Item Value Reference Range Interpretation Comments UA Leuk Est (test Negative (06/20/15 11:22 code = UA Leuk Est) AM) [facility] AND [id number] 16:22:00 Test Item Value Reference Range Interpretation Comments UA RBC (test code = 0-2 /HPF See_Comment [Automa nicko message] The UA RBC) system which ge nerated this result tra nsmitted reference range : <=2. The reference range was not used to interpr et this result as adebayo l/abnormal. [facility] AND [id number] 16:22:00 Test Item Value Reference Range Interpretation Comments UA WBC (test code = UA WBC) 0-2 /HPF [facility] AND [id number] 16:22:00 Test Item Value Reference Range Interpretation Comments UA Bacteria (test code = UA Few /HPF Bacteria) [facility] AND [id number] 16:22:00 Test Item Value Reference Range Interpretation Comments UA Sq Epi (test code = UA Sq Epi) Rare /LPF [facility] AND [id number] 16:22:00 Test Item Value Reference Range Interpretation Comments UA Glucose (test code Negative (06/20/15 11:22 = UA Glucose) AM) [facility] AND [id number] 16:22:00 Test Item Value Reference Range Interpretation Comments UA Blood (test code = Negative (06/20/15 11:22 UA Blood) AM) [facility] AND [id number] 16:22:00 Test Item Value Reference Range Interpretation Comments UA Ketones (test code Negative *NA*(06/20/15 = UA Ketones) 11:22 AM) [facility] AND [id number] 16:22:00 Test Item Value Reference Range Interpretation Comments UA Bili (test code = Negative *NA*(06/20/15 UA Bili) 11:22 AM) [facility] AND [id number] 16:22:00 Test Item Value Reference Range Interpretation Comments UA Color (test code = Yellow *NA*(06/20/15 UA Color) 11:22 AM) [facility] AND [id number] 16:22:00 Test Item Value Reference Range Interpretation Comments UA Turbidity (test code = Clear (06/20/15 11:22 UA Turbidity) AM) [facility] AND [id number] 16:22:00 Test Item Value Reference Range Interpretation Comments UA pH (test code = UA pH) 6.0 1 5.0-8.0 [facility] AND [id number] 16:22:00 Test Item Value Reference Range Interpretation Comments UA Spec Grav (test code = UA Spec 1.010 1 Grav) [facility] AND [id number] 16:22:00 Test Item Value Reference Range Interpretation Comments UA Protein (test code = UA Protein) 30 mg/dL [facility] AND [id number] 16:22:00 Test Item Value Reference Range Interpretation Comments UA Nitrite (test code Negative (06/20/15 11:22 = UA Nitrite) AM) [facility] AND [id number] 16:22:00 Test Item Value Reference Range Interpretation Comments UA Urobilinogen (test code = UA 0.2 0.1-1.0 Urobilinogen) [facility] AND [id number] 16:22:00 Test Item Value Reference Range Interpretation Comments UA Leuk Est (test Negative (06/20/15 11:22 code = UA Leuk Est) AM) [facility] AND [id number] 16:22:00 Test Item Value Reference Range Interpretation Comments UA RBC (test code = 0-2 /HPF See_Comment [Automa nicko message] The UA RBC) system which ge nerated this result tra nsmitted reference range : <=2. The reference range was not used to interpr et this result as adebayo l/abnormal. [facility] AND [id number] 16:22:00 Test Item Value Reference Range Interpretation Comments UA WBC (test code = UA WBC) 0-2 /HPF [facility] AND [id number] 16:22:00 Test Item Value Reference Range Interpretation Comments UA Bacteria (test code = UA Few /HPF Bacteria) [facility] AND [id number] 16:22:00 Test Item Value Reference Range Interpretation Comments UA Sq Epi (test code = UA Sq Epi) Rare /LPF [facility] AND [id number] 16:22:00 Test Item Value Reference Range Interpretation Comments UA Glucose (test code Negative (06/20/15 11:22 = UA Glucose) AM) [facility] AND [id number] 16:22:00 Test Item Value Reference Range Interpretation Comments UA Blood (test code = Negative (06/20/15 11:22 UA Blood) AM) [facility] AND [id number] 16:22:00 Test Item Value Reference Range Interpretation Comments UA Ketones (test code Negative *NA*(06/20/15 = UA Ketones) 11:22 AM) [facility] AND [id number] 16:22:00 Test Item Value Reference Range Interpretation Comments UA Bili (test code = Negative *NA*(06/20/15 UA Bili) 11:22 AM) [facility] AND [id number] 16:22:00 Test Item Value Reference Range Interpretation Comments UA Color (test code = Yellow *NA*(06/20/15 UA Color) 11:22 AM) [facility] [id number] 16:22:00 Test Item Value Reference Range Interpretation Comments UA Turbidity (test code = Clear (06/20/15 11:22 UA Turbidity) AM) [facility] [id number] 16:22:00 Test Item Value Reference Range Interpretation Comments UA pH (test code = UA pH) 6.0 1 5.0-8.0 [facility] [id number] 16:22:00 Test Item Value Reference Range Interpretation Comments UA Spec Grav (test code = UA Spec 1.010 1 Grav) [facility] [id number] 16:22:00 Test Item Value Reference Range Interpretation Comments UA Protein (test code = UA Protein) 30 mg/dL [facility] [id number] 15:37:00 Test Item Value Reference Range Interpretation Comments CK-MB INDEX (test no gt See_Comment [Automate d message] The code = CK-MB INDEX) system w [facility] generated this result transmit nicko reference range : <=2.5. The reference range was not used to interpr et this result as adebayo l/abnormal. [facility] UUSEECARDIAC [id number] 15:37:00 Test Item Value Reference Range Interpretation Comments Total CK (test code = Total CK) 29 12-191 [facility] McallenGrayBugCARDIAC [id number] 15:37:00 Test Item Value Reference Range Interpretation Comments Troponin-I (test code no gt See_Comment [Auto mated message] The = Troponin-I) system which g enerated this result transmit nicko reference range : <=0.40. The reference r carlos was not used to interpr et this result as adebayo l/abnormal. [facility] InfluxDBannCARDIAC [id number] 15:37:00 Test Item Value Reference Range Interpretation Comments CK MB (test code = CK MB) no gt 0.5-3.6 [facility] [employer] [id number] 15:37:00 Test Item Value Reference Range Interpretation Comments eGFR (test code = eGFR) 27 [facility] UUSEECHEM [id number] 15:37:00 Test Item Value Reference Range Interpretation Comments A/G Ratio (test code = A/G Ratio) 0.7 0.7-1.6 [facility]2016-04-20 15:37:00 Test Item Value Reference Range Interpretation Comments B/C Ratio (test code = B/C Ratio) 12 6-25 [facility]2016-04-20 15:37:00 Test Item Value Reference Range Interpretation Comments Globulin (test code = Globulin) 4.5 2.0-4.0 [facility]2016-04-20 15:37:00 Test Item Value Reference Range Interpretation Comments ASPARTATE TRANSAMINASE 12 See_Comment [Aut omated message] (test code = ASPARTATE The s ystem which TRANSAMINASE) generated this result transmitted ref erence range: <=37. Th e reference range was not used to interpr et this result as normal/abnormal . [facility]2016-04-20 15:37:00 Test Item Value Reference Range Interpretation Comments AGAP (test code = AGAP) 12.2 10.0-20.0 [facility]2016-04-20 15:37:00 Test Item Value Reference Range Interpretation Comments Sodium Lvl (test code = Sodium Lvl) 139 135-145 [facility]2016-04-20 15:37:00 Test Item Value Reference Range Interpretation Comments Potassium Lvl (test code = Potassium 4.2 3.5-5.1 Lvl) [facility]2016-04-20 15:37:00 Test Item Value Reference Range Interpretation Comments BUN (test code = BUN) 29 7-22 [facility]2016-04-20 15:37:00 Test Item Value Reference Range Interpretation Comments Creatinine Lvl (test code = Creatinine 2.47 0.50-1.40 Lvl) [facility]2016-04-20 15:37:00 Test Item Value Reference Range Interpretation Comments ALANINE AMINOTRANSFERASE 23 See_Comment [A utomated message] (test code = ALANINE The sys tem which AMINOTRANSFERASE) generated this result transmitted ref erence range: <=65. Th e reference range was not used to int erpret this result as normal/abnormal . [facility]2016-04-20 15:37:00 Test Item Value Reference Range Interpretation Comments Total Protein (test code = Total 7.8 6.4-8.4 Protein) [facility]2016-04-20 15:37:00 Test Item Value Reference Range Interpretation Comments Calcium Lvl (test code = Calcium Lvl) 9.0 8.5-10.5 [facility]2016-04-20 15:37:00 Test Item Value Reference Range Interpretation Comments Bili Total (test code = Bili Total) 0.5 0.2-1.3 [facility]2016-04-20 15:37:00 Test Item Value Reference Range Interpretation Comments CO2 (test code = CO2) 28 24-32 [facility]2016-04-20 15:37:00 Test Item Value Reference Range Interpretation Comments Chloride Lvl (test code = Chloride Lvl) 103 95-109 [facility]2016-04-20 15:37:00 Test Item Value Reference Range Interpretation Comments Glucose Lvl (test code = Glucose Lvl) 134 70-99 [facility]2016-04-20 15:37:00 Test Item Value Reference Range Interpretation Comments Alk Phos (test code = Alk Phos) 57 39-136 [facility]2016-04-20 15:37:00 Test Item Value Reference Range Interpretation Comments Albumin Lvl (test code = Albumin Lvl) 3.3 3.5-5.[address] [facility] H[id number] 15:37:00 Test Item Value Reference Range Interpretation Comments Basophils (test code = 0.6 See_Comment [Aut omated message] The Basophils) system which ge nerated this result tra nsmitted reference range : <=1.0. The reference r carlos was not used to int erpret this result as normal/abnormal . [facility] H[id number] 15:37:00 Test Item Value Reference Range Interpretation Comments Lymphocytes (test code = Lymphocytes) 13.7 20.0-40.[address] H[id number] 15:37:00 Test Item Value Reference Range Interpretation Comments Eosinophils (test code = 1.4 See_Comment [A utomated message] The Eosinophils) system which ge nerated this result tra nsmitted reference range : <=4.0. The reference r carlos was not used to int erpret this result as normal/abnormal . [facility] H[id number] 15:37:00 Test Item Value Reference Range Interpretation Comments Monocytes (test code = Monocytes) 10.4 2.0-12.[address] H[id number] 15:37:00 Test Item Value Reference Range Interpretation Comments Basophils # (test code 0.1 See_Comment [Aut omated message] The = Basophils #) system which generated this result tra nsmitted reference range : <=0.2. The reference r carlos was not used to int erpret this result as normal/abnormal . [facility] H[id number] 15:37:00 Test Item Value Reference Range Interpretation Comments Eosinophils # (test code 0.2 See_Comment [A utomated message] The = Eosinophils #) system whic h generated this result tra nsmitted reference range : <=0.5. The reference r carlos was not used to int erpret this result as normal/abnormal . [facility] H[id number] 15:37:00 Test Item Value Reference Range Interpretation Comments Segs-Bands # (test code = Segs-Bands #) 8.3 1.5-8.[address] [facility] H[id number] 15:37:00 Test Item Value Reference Range Interpretation Comments Lymphocytes # (test code = Lymphocytes 1.5 1.0-5.5 #) [facility] H[id number] 15:37:00 Test Item Value Reference Range Interpretation Comments Monocytes # (test code 1.2 See_Comment [Aut omated message] The = Monocytes #) system which generated this result tra nsmitted reference range : <=0.8. The reference r carlos was not used to int erpret this result as normal/abnormal . [facility] Ho[id number] 15:37:00 Test Item Value Reference Range Interpretation Comments Segs (test code = Segs) 73.9 45.0-75.[address] [facility] H[id number] 15:37:00 Test Item Value Reference Range Interpretation Comments MCH (test code = MCH) 28.3 pg 27.0-31.[address] [facility] Hospit[id number] 15:37:00 Test Item Value Reference Range Interpretation Comments MCV (test code = MCV) 88.6 80.0-94.[address] [facility] HospitalHgitywuDIGFBFGILK7445-25-95 15:37:00 Test Item Value Reference Range Interpretation Comments RDW (test code = RDW) 13.4 11.5-14.5 [facility]BhgjeleTRMBFNPPBT7597-48-72 15:37:00 Test Item Value Reference Range Interpretation Comments MCHC (test code = MCHC) 31.9 32.0-36.0 [facility] RegionWphkxstPRTGRZVDUL2255-10-34 15:37:00 Test Item Value Reference Range Interpretation Comments WBC X 10x3 (test code = WBC X 10x3) 11.3 3.7-10.4 [facility] RegionAwhmeocWATKGKRHTB6214-26-16 15:37:00 Test Item Value Reference Range Interpretation Comments Hct (test code = Hct) 39.5 42.0-54.0 [facility] RegionGbqindjNUCZZNFOXM7986-98-62 15:37:00 Test Item Value Reference Range Interpretation Comments Hgb (test code = Hgb) 12.6 14.0-18.[address] [facility] [facility]OU6667-[facility] 15:37:00 Test Item Value Reference Range Interpretation Comments RBC X 10x6 (test code = RBC X 10x6) 4.46 4.70-6.10 [facility]KptlymmMUIZQJEZGT3813-12-72 15:37:00 Test Item Value Reference Range Interpretation Comments Platelet (test code = Platelet) 321 133-450 [facility] RegionEdcukvqMMUMTVBBXK9293-53-53 15:37:00 Test Item Value Reference Range Interpretation Comments MPV (test code = MPV) 8.5 7.4-10.4 [facility] RegionXsaciikWUXHRMUCPM5118-46-16 15:37:00 Test Item Value Reference Range Interpretation Comments aPTT (test code = aPTT) 32.0 s 22.9-35.8 [facility] CenterGaijpleDHSOSWRLVF7136-02-84 15:37:00 Test Item Value Reference Range Interpretation Comments INR (test code = INR) 1.00 0.85-1.17 [facility] RegionAbhxfofPGCVDECEZC0875-45-39 15:37:00 Test Item Value Reference Range Interpretation Comments PROTIME (test code = PROTIME) 13.5 s 12.0-14.7 [facility] CenterCARDI [id number] 15:37:00 Test Item Value Reference Range Interpretation Comments CK-MB INDEX (test no gt See_Comment [Automate d message] The code = CK-MB INDEX) [facility] generated this result transmit nicko reference range : <=2.5. The reference range was not used to interpr et this result as adebayo l/abnormal. [facility]ARDI[facility] [id number] 15:37:00 Test Item Value Reference Range Interpretation Comments Total CK (test code = Total CK) 29 12-191 [facility] [employer] [id number] 15:37:00 Test Item Value Reference Range Interpretation Comments Troponin-I (test code no gt See_Comment [Auto mated message] The = Troponin-I) system which g enerated this result transmit nicko reference range : <=0.40. The reference r carlos was not used to interpr et this result as adebayo l/abnormal. [employer] [id number] 15:37:00 Test Item Value Reference Range Interpretation Comments CK MB (test code = CK MB) no gt 0.5-3.6 [facility] [employer] [id number] 15:37:00 Test Item Value Reference Range Interpretation Comments eGFR (test code = eGFR) 27 [facility] [employer] [id number] 15:37:00 Test Item Value Reference Range Interpretation Comments A/G Ratio (test code = A/G Ratio) 0.7 0.7-1.6 [facility] [employer] [id number] 15:37:00 Test Item Value Reference Range Interpretation Comments B/C Ratio (test code = B/C Ratio) 12 6-25 [facility] [employer] [id number] 15:37:00 Test Item Value Reference Range Interpretation Comments Globulin (test code = Globulin) 4.5 2.0-4.0 [facility] [employer] [id number] 15:37:00 Test Item Value Reference Range Interpretation Comments ASPARTATE TRANSAMINASE 12 See_Comment [Aut omated message] (test code = ASPARTATE The s ystem which TRANSAMINASE) generated this result transmitted ref erence range: <=37. Th e reference range was not used to interpr et this result as normal/abnormal . [employer] [id number] 15:37:00 Test Item Value Reference Range Interpretation Comments AGAP (test code = AGAP) 12.2 10.0-20.0 [employer] [id number] 15:37:00 Test Item Value Reference Range Interpretation Comments Sodium Lvl (test code = Sodium Lvl) 139 135-145 [facility]2016-04-20 15:37:00 Test Item Value Reference Range Interpretation Comments Potassium Lvl (test code = Potassium 4.2 3.5-5.1 Lvl) [facility]2016-04-20 15:37:00 Test Item Value Reference Range Interpretation Comments BUN (test code = BUN) 29 7-22 [facility]2016-04-20 15:37:00 Test Item Value Reference Range Interpretation Comments Creatinine Lvl (test code = Creatinine 2.47 0.50-1.40 Lvl) [facility]2016-04-20 15:37:00 Test Item Value Reference Range Interpretation Comments ALANINE AMINOTRANSFERASE 23 See_Comment [A utomated message] (test code = ALANINE The sys tem which AMINOTRANSFERASE) generated this result transmitted ref erence range: <=65. Th e reference range was not used to int erpret this result as normal/abnormal . [facility]2016-04-20 15:37:00 Test Item Value Reference Range Interpretation Comments Total Protein (test code = Total 7.8 6.4-8.4 Protein) [facility]2016-04-20 15:37:00 Test Item Value Reference Range Interpretation Comments Calcium Lvl (test code = Calcium Lvl) 9.0 8.5-10.5 [facility]2016-04-20 15:37:00 Test Item Value Reference Range Interpretation Comments Bili Total (test code = Bili Total) 0.5 0.2-1.3 [facility]2016-04-20 15:37:00 Test Item Value Reference Range Interpretation Comments CO2 (test code = CO2) 28 24-32 [facility]2016-04-20 15:37:00 Test Item Value Reference Range Interpretation Comments Chloride Lvl (test code = Chloride Lvl) 103 95-109 [facility]2016-04-20 15:37:00 Test Item Value Reference Range Interpretation Comments Glucose Lvl (test code = Glucose Lvl) 134 70-99 [facility]2016-04-20 15:37:00 Test Item Value Reference Range Interpretation Comments Alk Phos (test code = Alk Phos) 57 39-136 [facility]2016-04-20 15:37:00 Test Item Value Reference Range Interpretation Comments Albumin Lvl (test code = Albumin Lvl) 3.3 3.5-5.[address] [facility] HospitalWcofasiIEDCDRXIMV8815-38-00 15:37:00 Test Item Value Reference Range Interpretation Comments Basophils (test code = 0.6 See_Comment [Aut omated message] The Basophils) system which ge nerated this result tra nsmitted reference range : <=1.0. The reference r carlos was not used to int erpret this result as normal/abnormal . [facility] HospitalAptrarrMBLSABNCNN9102-32-54 15:37:00 Test Item Value Reference Range Interpretation Comments Lymphocytes (test code = Lymphocytes) 13.7 20.0-40.[address] [facility] HospitalCvgplpoONUVGVMXLZ3153-05-79 15:37:00 Test Item Value Reference Range Interpretation Comments Eosinophils (test code = 1.4 See_Comment [A utomated message] The Eosinophils) system which ge nerated this result tra nsmitted reference range : <=4.0. The reference r carlos was not used to int erpret this result as normal/abnormal . [facility] HospitalMrdfmytKQODNTWATN1674-44-77 15:37:00 Test Item Value Reference Range Interpretation Comments Monocytes (test code = Monocytes) 10.4 2.0-12.[address] [facility] HospitalCivsdzuDSWIQTNEJP0282-55-71 15:37:00 Test Item Value Reference Range Interpretation Comments Basophils # (test code 0.1 See_Comment [Aut omated message] The = Basophils #) system which generated this result tra nsmitted reference range : <=0.2. The reference r carlos was not used to int erpret this result as normal/abnormal . [facility] HospitalPzwfatpCDSEFXQACO8650-28-58 15:37:00 Test Item Value Reference Range Interpretation Comments Eosinophils # (test code 0.2 See_Comment [A utomated message] The = Eosinophils #) system whic h generated this result tra nsmitted reference range : <=0.5. The reference r carlos was not used to int erpret this result as normal/abnormal . [facility] HospitalYuxzeqnAMJDXKKPOE1228-12-69 15:37:00 Test Item Value Reference Range Interpretation Comments Segs-Bands # (test code = Segs-Bands #) 8.3 1.5-8.[address] [facility] HospitalMbolijfSXETIWHLSY4352-96-59 15:37:00 Test Item Value Reference Range Interpretation Comments Lymphocytes # (test code = Lymphocytes 1.5 1.0-5.5 #) [facility] HospitalJhsdhbvPJBYKIVCAZ4469-73-03 15:37:00 Test Item Value Reference Range Interpretation Comments Monocytes # (test code 1.2 See_Comment [Aut omated message] The = Monocytes #) system which generated this result tra nsmitted reference range : <=0.8. The reference r carlos was not used to int erpret this result as normal/abnormal . [facility] HospitalNucnpysFXGBCTCMML1270-09-62 15:37:00 Test Item Value Reference Range Interpretation Comments Segs (test code = Segs) 73.9 45.0-75.[address] [facility] HospitalXobbpuuMQRVBGVPVV1192-53-38 15:37:00 Test Item Value Reference Range Interpretation Comments MCH (test code = MCH) 28.3 pg 27.0-31.[address] [facility] HospitalIbpktimYPLSNULQRZ2580-81-36 15:37:00 Test Item Value Reference Range Interpretation Comments MCV (test code = MCV) 88.6 80.0-94.[address] [facility] HospitalGvzsbidOGCALWJKVC6705-12-74 15:37:00 Test Item Value Reference Range Interpretation Comments RDW (test code = RDW) 13.4 11.5-14.[address] [facility] HospitalXxhzhddYQQWJSMHGR1622-51-60 15:37:00 Test Item Value Reference Range Interpretation Comments MCHC (test code = MCHC) 31.9 32.0-36.[address] [facility] HospitalTgoxpioYPUDTIVQBL1841-12-95 15:37:00 Test Item Value Reference Range Interpretation Comments WBC X 10x3 (test code = WBC X 10x3) 11.3 3.7-10.[address] [facility] HospitalHaeqlrzZEQVQXUBBP2038-26-17 15:37:00 Test Item Value Reference Range Interpretation Comments Hct (test code = Hct) 39.5 42.0-54.[address] [facility] HospitalGfkbpfyPKUKLQJLJB6850-63-98 15:37:00 Test Item Value Reference Range Interpretation Comments Hgb (test code = Hgb) 12.6 14.0-18.[address] [facility] HospitalCpkrecmCCIASNQSKM6353-10-63 15:37:00 Test Item Value Reference Range Interpretation Comments RBC X 10x6 (test code = RBC X 10x6) 4.46 4.70-6.[address] [facility] [facility] HospitalFysqmjmBGLLWUHFCG4140-80-69 15:37:00 Test Item Value Reference Range Interpretation Comments Platelet (test code = Platelet) 321 133-450 [facility] McallenAsryyilPRBDBQPYFR6493-32-69 15:37:00 Test Item Value Reference Range Interpretation Comments MPV (test code = MPV) 8.5 7.4-10.4 [facility] CenterVxmrarfSYWTWDYSUE2089-21-40 15:37:00 Test Item Value Reference Range Interpretation Comments aPTT (test code = aPTT) 32.0 s 22.9-35.8 [facility] McallenFqikuuwJJDJVRDMAT0701-68-23 15:37:00 Test Item Value Reference Range Interpretation Comments INR (test code = INR) 1.00 0.85-1.17 [facility] McallenJxspgqmMMHYEQFKNZ7545-71-60 15:37:00 Test Item Value Reference Range Interpretation Comments PROTIME (test code = PROTIME) 13.5 s 12.0-14.7 [facility] [employer]2016-04-20 15:37:00 Test Item Value Reference Range Interpretation Comments CK-MB INDEX (test no gt See_Comment [Automate d message] The code = CK-MB INDEX) [facility] generated this result transmit nicko reference range : <=2.5. The reference range was not used to interpr et this result as adebayo l/abnormal. [facility] McallenNational Indoor Golf and EntertainmentAC [id number] 15:37:00 Test Item Value Reference Range Interpretation Comments Total CK (test code = Total CK) 29 12-191 [facility] [employer] [id number] 15:37:00 Test Item Value Reference Range Interpretation Comments Troponin-I (test code no gt See_Comment [Auto mated message] The = Troponin-I) system which g enerated this result transmit nicko reference range : <=0.40. The reference r carlos was not used to interpr et this result as adebayo l/abnormal. [facility] [employer] [id number] 15:37:00 Test Item Value Reference Range Interpretation Comments CK MB (test code = CK MB) no gt 0.5-3.6 [facility] [employer] [id number] 15:37:00 Test Item Value Reference Range Interpretation Comments eGFR (test code = eGFR) 27 [facility] [employer] [id number] 15:37:00 Test Item Value Reference Range Interpretation Comments A/G Ratio (test code = A/G Ratio) 0.7 0.7-1.6 [facility]2016-04-20 15:37:00 Test Item Value Reference Range Interpretation Comments B/C Ratio (test code = B/C Ratio) 12 6-25 [facility]2016-04-20 15:37:00 Test Item Value Reference Range Interpretation Comments Globulin (test code = Globulin) 4.5 2.0-4.0 [facility]2016-04-20 15:37:00 Test Item Value Reference Range Interpretation Comments ASPARTATE TRANSAMINASE 12 See_Comment [Aut omated message] (test code = ASPARTATE The s ystem which TRANSAMINASE) generated this result transmitted ref erence range: <=37. Th e reference range was not used to interpr et this result as normal/abnormal . [facility]2016-04-20 15:37:00 Test Item Value Reference Range Interpretation Comments AGAP (test code = AGAP) 12.2 10.0-20.0 [facility]2016-04-20 15:37:00 Test Item Value Reference Range Interpretation Comments Sodium Lvl (test code = Sodium Lvl) 139 135-145 [facility]2016-04-20 15:37:00 Test Item Value Reference Range Interpretation Comments Potassium Lvl (test code = Potassium 4.2 3.5-5.1 Lvl) [facility]2016-04-20 15:37:00 Test Item Value Reference Range Interpretation Comments BUN (test code = BUN) 29 7-22 [facility]2016-04-20 15:37:00 Test Item Value Reference Range Interpretation Comments Creatinine Lvl (test code = Creatinine 2.47 0.50-1.40 Lvl) [facility]2016-04-20 15:37:00 Test Item Value Reference Range Interpretation Comments ALANINE AMINOTRANSFERASE 23 See_Comment [A utomated message] (test code = ALANINE The sys tem which AMINOTRANSFERASE) generated this result transmitted ref erence range: <=65. Th e reference range was not used to int erpret this result as normal/abnormal . [facility]2016-04-20 15:37:00 Test Item Value Reference Range Interpretation Comments Total Protein (test code = Total 7.8 6.4-8.4 Protein) [facility]2016-04-20 15:37:00 Test Item Value Reference Range Interpretation Comments Calcium Lvl (test code = Calcium Lvl) 9.0 8.5-10.5 [facility]2016-04-20 15:37:00 Test Item Value Reference Range Interpretation Comments Bili Total (test code = Bili Total) 0.5 0.2-1.3 [facility]2016-04-20 15:37:00 Test Item Value Reference Range Interpretation Comments CO2 (test code = CO2) 28 24-32 [place] 787426-04-20 15:37:00 Test Item Value Reference Range Interpretation Comments Chloride Lvl (test code = Chloride Lvl) 103 95-109 [facility]2016-04-20 15:37:00 Test Item Value Reference Range Interpretation Comments Glucose Lvl (test code = Glucose Lvl) 134 70-99 [facility]2016-04-20 15:37:00 Test Item Value Reference Range Interpretation Comments Alk Phos (test code = Alk Phos) 57 39-136 [facility]2016-04-20 15:37:00 Test Item Value Reference Range Interpretation Comments Albumin Lvl (test code = Albumin Lvl) 3.3 3.5-5.[address] [facility] HospitalJodsloyNIZHQWBDMV5387-06-13 15:37:00 Test Item Value Reference Range Interpretation Comments Basophils (test code = 0.6 See_Comment [Aut omated message] The Basophils) system which ge nerated this result tra nsmitted reference range : <=1.0. The reference r carlos was not used to int erpret this result as normal/abnormal . [facility] HospitalRjkdvezKPGDKHSVUB0456-12-72 15:37:00 Test Item Value Reference Range Interpretation Comments Lymphocytes (test code = Lymphocytes) 13.7 20.0-40.[address] [facility] HospitalNfxumncDMJAZAOEMM4573-51-12 15:37:00 Test Item Value Reference Range Interpretation Comments Eosinophils (test code = 1.4 See_Comment [A utomated message] The Eosinophils) system which ge nerated this result tra nsmitted reference range : <=4.0. The reference r carlos was not used to int erpret this result as normal/abnormal . [facility] HospitalTrdyeqkFZSNHQIHUC0073-21-40 15:37:00 Test Item Value Reference Range Interpretation Comments Monocytes (test code = Monocytes) 10.4 2.0-12.[address] [facility] HospitalOqchtaeKCEAUFAAYR5980-62-47 15:37:00 Test Item Value Reference Range Interpretation Comments Basophils # (test code 0.1 See_Comment [Aut omated message] The = Basophils #) system which generated this result tra nsmitted reference range : <=0.2. The reference r carlos was not used to int erpret this result as normal/abnormal . [facility] HospitalEtsklcnRYTSZOAMRA3686-32-84 15:37:00 Test Item Value Reference Range Interpretation Comments Eosinophils # (test code 0.2 See_Comment [A utomated message] The = Eosinophils #) system whic h generated this result tra nsmitted reference range : <=0.5. The reference r carlos was not used to int erpret this result as normal/abnormal . [facility] HospitalLqzznlcITHFUPEMFN4967-87-02 15:37:00 Test Item Value Reference Range Interpretation Comments Segs-Bands # (test code = Segs-Bands #) 8.3 1.5-8.[address] [facility] HospitalJnfupzlDZVSHLIUBZ1485-99-63 15:37:00 Test Item Value Reference Range Interpretation Comments Lymphocytes # (test code = Lymphocytes 1.5 1.0-5.5 #) [facility] HospitalWphpkysCOBDXKADKC3808-65-61 15:37:00 Test Item Value Reference Range Interpretation Comments Monocytes # (test code 1.2 See_Comment [Aut omated message] The = Monocytes #) system which generated this result tra nsmitted reference range : <=0.8. The reference r carlos was not used to int erpret this result as normal/abnormal . [facility] HospitalHcqtcwiIITMNCZTPT6448-28-53 15:37:00 Test Item Value Reference Range Interpretation Comments Segs (test code = Segs) 73.9 45.0-75.[address] [facility] HospitalJsqjcgwLBTWXIEJFC3105-79-37 15:37:00 Test Item Value Reference Range Interpretation Comments MCH (test code = MCH) 28.3 pg 27.0-31.[address] [facility] HospitalKlrbvmlKOSLWNXWMM3403-39-44 15:37:00 Test Item Value Reference Range Interpretation Comments MCV (test code = MCV) 88.6 80.0-94.[address] [facility] HospitalJliniveFTKDGPQNKW3288-79-99 15:37:00 Test Item Value Reference Range Interpretation Comments RDW (test code = RDW) 13.4 11.5-14.5 [facility] McallenYtxhetzTWKHFWPHGX7725-68-87 15:37:00 Test Item Value Reference Range Interpretation Comments MCHC (test code = MCHC) 31.9 32.0-36.0 [facility] RegionRqkisehOPDMLERXCA0518-63-79 15:37:00 Test Item Value Reference Range Interpretation Comments WBC X 10x3 (test code = WBC X 10x3) 11.3 3.7-10.4 [facility] McallenRnlmranIEDGYNBHSF6877-47-88 15:37:00 Test Item Value Reference Range Interpretation Comments Hct (test code = Hct) 39.5 42.0-54.0 [facility] McallenGaktwwiMJTERVKJOR4355-02-09 15:37:00 Test Item Value Reference Range Interpretation Comments Hgb (test code = Hgb) 12.6 14.0-18.0 [facility] RegionFxqbknmUQTCPQOWNR1737-81-46 15:37:00 Test Item Value Reference Range Interpretation Comments RBC X 10x6 (test code = RBC X 10x6) 4.46 4.70-6.10 [facility] CenterCcndykdBEKQEOHPSZ4631-55-70 15:37:00 Test Item Value Reference Range Interpretation Comments Platelet (test code = Platelet) 321 133-450 [facility] RegionPjajdxtNTITEDSUAL0091-69-01 15:37:00 Test Item Value Reference Range Interpretation Comments MPV (test code = MPV) 8.5 7.4-10.4 [facility] RegionOdutjzxCTJIOOQFQI8187-51-83 15:37:00 Test Item Value Reference Range Interpretation Comments aPTT (test code = aPTT) 32.0 s 22.9-35.8 [facility] McallenZuyhegaYYEIMEGXQS7735-97-61 15:37:00 Test Item Value Reference Range Interpretation Comments INR (test code = INR) 1.00 0.85-1.17 [facility] McallenRvmyhhtHDGRBLRUPN9052-84-58 15:37:00 Test Item Value Reference Range Interpretation Comments PROTIME (test code = PROTIME) 13.5 s 12.0-14.7 [facility] WKREVYQ3114-01-95 15:37:00 Test Item Value Reference Range Interpretation Comments CK-MB INDEX (test no gt See_Comment [Automate d message] The code = CK-MB INDEX) [facility] generated this result transmit nicko reference range : <=2.5. The reference range was not used to interpr et this result as adebayo l/abnormal. [facility] [employer]annCARDIAC QCXPDEM5698-29-83 15:37:00 Test Item Value Reference Range Interpretation Comments Total CK (test code = Total CK) 29 12-191 [facility] [employer]National [employer]AC CFWCDTS4128-96-10 15:37:00 Test Item Value Reference Range Interpretation Comments Troponin-I (test code no gt See_Comment [Auto mated message] The = Troponin-I) system which g enerated this result transmit nicko reference range : <=0.40. The reference r carlos was not used to interpr et this result as adebayo l/abnormal. [facility] [employer] [id number] 15:37:00 Test Item Value Reference Range Interpretation Comments CK MB (test code = CK MB) no gt 0.5-3.6 [facility] [employer] [id number] 15:37:00 Test Item Value Reference Range Interpretation Comments eGFR (test code = eGFR) 27 [facility] [employer] [id number] 15:37:00 Test Item Value Reference Range Interpretation Comments A/G Ratio (test code = A/G Ratio) 0.7 0.7-1.6 [facility] [employer] [id number] 15:37:00 Test Item Value Reference Range Interpretation Comments B/C Ratio (test code = B/C Ratio) 12 6-25 [facility] [employer] [id number] 15:37:00 Test Item Value Reference Range Interpretation Comments Globulin (test code = Globulin) 4.5 2.0-4.0 [facility] [employer] [id number] 15:37:00 Test Item Value Reference Range Interpretation Comments ASPARTATE TRANSAMINASE 12 See_Comment [Aut omated message] (test code = ASPARTATE The s ystem which TRANSAMINASE) generated this result transmitted ref erence range: <=37. Th e reference range was not used to interpr et this result as normal/abnormal . [employer] [id number] 15:37:00 Test Item Value Reference Range Interpretation Comments AGAP (test code = AGAP) 12.2 10.0-20.0 [facility] [employer] [id number] 15:37:00 Test Item Value Reference Range Interpretation Comments Sodium Lvl (test code = Sodium Lvl) 139 135-145 [facility]2016-04-20 15:37:00 Test Item Value Reference Range Interpretation Comments Potassium Lvl (test code = Potassium 4.2 3.5-5.1 Lvl) [facility]2016-04-20 15:37:00 Test Item Value Reference Range Interpretation Comments BUN (test code = BUN) 29 7-22 [facility]2016-04-20 15:37:00 Test Item Value Reference Range Interpretation Comments Creatinine Lvl (test code = Creatinine 2.47 0.50-1.40 Lvl) [facility]2016-04-20 15:37:00 Test Item Value Reference Range Interpretation Comments ALANINE AMINOTRANSFERASE 23 See_Comment [A utomated message] (test code = ALANINE The sys tem which AMINOTRANSFERASE) generated this result transmitted ref erence range: <=65. Th e reference range was not used to int erpret this result as normal/abnormal . [facility]2016-04-20 15:37:00 Test Item Value Reference Range Interpretation Comments Total Protein (test code = Total 7.8 6.4-8.4 Protein) [facility]2016-04-20 15:37:00 Test Item Value Reference Range Interpretation Comments Calcium Lvl (test code = Calcium Lvl) 9.0 8.5-10.5 [facility]2016-04-20 15:37:00 Test Item Value Reference Range Interpretation Comments Bili Total (test code = Bili Total) 0.5 0.2-1.3 [facility]2016-04-20 15:37:00 Test Item Value Reference Range Interpretation Comments CO2 (test code = CO2) 28 24-32 [facility]2016-04-20 15:37:00 Test Item Value Reference Range Interpretation Comments Chloride Lvl (test code = Chloride Lvl) 103 95-109 [facility]2016-04-20 15:37:00 Test Item Value Reference Range Interpretation Comments Glucose Lvl (test code = Glucose Lvl) 134 70-99 [facility]2016-04-20 15:37:00 Test Item Value Reference Range Interpretation Comments Alk Phos (test code = Alk Phos) 57 39-136 [facility]2016-04-20 15:37:00 Test Item Value Reference Range Interpretation Comments Albumin Lvl (test code = Albumin Lvl) 3.3 3.5-5.[address] [facility] HospitalQfxaphqSJIOYRKDSG8386-43-31 15:37:00 Test Item Value Reference Range Interpretation Comments Basophils (test code = 0.6 See_Comment [Aut omated message] The Basophils) system which ge nerated this result tra nsmitted reference range : <=1.0. The reference r carlos was not used to int erpret this result as normal/abnormal . [facility]ZtycntsQFEOMLNRJQ2205-83-16 15:37:00 Test Item Value Reference Range Interpretation Comments Lymphocytes (test code = Lymphocytes) 13.7 20.0-40.[address] [facility] HospitalDmyzbwfYABYTTZIOW0728-11-15 15:37:00 Test Item Value Reference Range Interpretation Comments Eosinophils (test code = 1.4 See_Comment [A utomated message] The Eosinophils) system which ge nerated this result tra nsmitted reference range : <=4.0. The reference r carlos was not used to int erpret this result as normal/abnormal . [facility] Hospit[id number] 15:37:00 Test Item Value Reference Range Interpretation Comments Monocytes (test code = Monocytes) 10.4 2.0-12.[address] [facility] HospitalZihyupiJJRMWDYZFR2474-36-55 15:37:00 Test Item Value Reference Range Interpretation Comments Basophils # (test code 0.1 See_Comment [Aut omated message] The = Basophils #) system which generated this result tra nsmitted reference range : <=0.2. The reference r carlos was not used to int erpret this result as normal/abnormal . [facility] HospitalYwgfntpKWKPTEZUIS9476-29-79 15:37:00 Test Item Value Reference Range Interpretation Comments Eosinophils # (test code 0.2 See_Comment [A utomated message] The = Eosinophils #) system whic h generated this result tra nsmitted reference range : <=0.5. The reference r carlos was not used to int erpret this result as normal/abnormal . [facility] HospitalEmdkjlwMWSNTNQYHZ2660-36-00 15:37:00 Test Item Value Reference Range Interpretation Comments Segs-Bands # (test code = Segs-Bands #) 8.3 1.5-8.[address] [facility] HospitalErsoubwEHVDOYLVYG3710-94-83 15:37:00 Test Item Value Reference Range Interpretation Comments Lymphocytes # (test code = Lymphocytes 1.5 1.0-5.5 #) [facility] HospitalXaubdgrYVTEVSUFLI2806-49-27 15:37:00 Test Item Value Reference Range Interpretation Comments Monocytes # (test code 1.2 See_Comment [Aut omated message] The = Monocytes #) system which generated this result tra nsmitted reference range : <=0.8. The reference r carlos was not used to int erpret this result as normal/abnormal . [facility] H[id number] 15:37:00 Test Item Value Reference Range Interpretation Comments Segs (test code = Segs) 73.9 45.0-75.[address] [facility] HospitalPckyhsdWYNMMLAMER3085-33-58 15:37:00 Test Item Value Reference Range Interpretation Comments MCH (test code = MCH) 28.3 pg 27.0-31.[address] [facility] HospitalMrealqgINGJJJNJDX4323-98-88 15:37:00 Test Item Value Reference Range Interpretation Comments MCV (test code = MCV) 88.6 80.0-94.[address] [facility] HospitalSdsntaxMBOJLYKBBZ3011-44-73 15:37:00 Test Item Value Reference Range Interpretation Comments RDW (test code = RDW) 13.4 11.5-14.[address] [facility] HospitalLzfqbnoINXAWHBMAB1674-38-42 15:37:00 Test Item Value Reference Range Interpretation Comments MCHC (test code = MCHC) 31.9 32.0-36.[address] [facility] H[id number] 15:37:00 Test Item Value Reference Range Interpretation Comments WBC X 10x3 (test code = WBC X 10x3) 11.3 3.7-10.[address] [facility] HospitalYlzznuuGTYBZIKAJU3829-84-91 15:37:00 Test Item Value Reference Range Interpretation Comments Hct (test code = Hct) 39.5 42.0-54.[address] [facility] HospitalXeqywuwXXUNARYWGX1915-18-39 15:37:00 Test Item Value Reference Range Interpretation Comments Hgb (test code = Hgb) 12.6 14.0-18.[address] [facility] HospitalIttnglcJKMYAYOMHL6531-99-46 15:37:00 Test Item Value Reference Range Interpretation Comments RBC X 10x6 (test code = RBC X 10x6) 4.46 4.70-6.[address] [facility] HospitalPnaxiivTNJGKNUBAF2594-60-12 15:37:00 Test Item Value Reference Range Interpretation Comments Platelet (test code = Platelet) 321 133-[address] [facility] HospitalBuquentMKPSVHXJVW0763-29-11 15:37:00 Test Item Value Reference Range Interpretation Comments MPV (test code = MPV) 8.5 7.4-10.[address] [facility] HospitalBhsblznMOROPFZRWE5909-43-16 15:37:00 Test Item Value Reference Range Interpretation Comments aPTT (test code = aPTT) 32.0 s 22.9-35.[address] [facility] H[id number] 15:37:00 Test Item Value Reference Range Interpretation Comments INR (test code = INR) 1.00 0.85-1.[address] [facility] HospitalUiafydzMNDRNBAFXN7059-82-22 15:37:00 Test Item Value Reference Range Interpretation Comments PROTIME (test code = PROTIME) 13.5 s 12.0-14.7 [facility] Notes Date/Time Note Provider Source 2021-11-11 Radiation Dose CTDIVOL = 0 (mGy): DLP = 820.51 ( mGy-cm) [facility] 08:56:47-00:00 PROCEDURE INFORMATION: Exam: CT Chest Without [...] Resolution of previously visualized right upper lobe dough panner ior segmental 6 mm pulmonary nodule/nodular focus [...] diverticulosis. Pete Flanagan MD On 11/12/2021 14:21:27; [id number] 2021-11-11 Radiation Dose CTDIVOL = 0 (mGy): DLP = 2293.3 ( mGy-cm) [facility] [place] 08:56:47-00:00 PROCEDURE INFORMATION: Exam: CT Abdomen And [...] from prior EVAR. COMMENTS: Consistent with the [employer] Incidental [employer] [...] Mat Sabillon MD On 11/12/2021 09:45:20; VR-BF [id number] 2021-11-11 Radiation Dose CTDIVOL = 0 (mGy): [...] Resolution of previously visualized right upper lobe dough panner ior segmental 6 mm pulmonary nodule/nodular focus [...] diverticulosis. Pete Flanagan MD On 11/12/2021 14:21:27; [id number] 2021-11-11 Radiation Dose CTDIVOL = 0 (mGy): DLP = 2293.3 ( mGy-cm) [facility] [place] 08:56:47-00:00 PROCEDURE INFORMATION: Exam: CT Abdomen And [...] from prior EVAR. COMMENTS: Consistent with the [employer] Incidental Findings [employer] [...] criteria. Mat Sabillon MD On 11/12/2021 09:45:20; JULIANO-SHERRY [id number] 2021-11-11 Radiation Dose CTDIVOL = 0 (mGy): DLP = 820.51 ( mGy-cm) [facility] [place] 08:56:47-00:00 PROCEDURE INFORMATION: Exam: CT Chest [...] Resolution of previously visualized right upper lobe dough panner ior segmental 6 mm pulmonary nodule/nodular focus [...] diverticulosis. Pete Flanagan MD On 11/12/2021 14:21:27; [id number] 2021-11-11 Radiation Dose CTDIVOL = 0 (mGy): DLP = 2293.3 ( mGy-cm) [facility] [place] 08:56:47-00:00 PROCEDURE INFORMATION: Exam: CT Abdomen And [...] from prior EVAR. COMMENTS: Consistent with the [employer] Incidental Findings [employer] [...] Mat Sabillon MD On 11/12/2021 09:45:20; VR-BF [id number] 2021-05-09 EXAM: CT CHEST WITHOUT CONTRAST CLARENCE [...] [facility] 10:18:59-00:00 DATE: 05/09/2021 7:57 CREW DISPATCHER Center INDICATION: Pre-Transplant evaluation for kidney transplant [...] [facility] 10:18:59-00:00 DATE: 05/09/2021 7:57 [facility] DISPATCHER Center INDICATION: Pre-Transplant evaluation for kidney transplant [...] [facility] 10:18:59-00:00 DATE: 05/09/2021 7:57 [facility] DISPATCHER Center INDICATION: Pre-Transplant evaluation for kidney transplant [...] [facility] 17:35:00-00:00 DATE: 06/09/2020 Center INDICATION: Aneurysm . [...] [facility] 17:35:00-00:00 DATE: 06/09/2020 Center INDICATION: Aneurysm . [...] [facility] 17:35:00-00:00 DATE: 06/09/2020 Center INDICATION: Aneurysm . [...] [facility] 08:00:00-00:00 DATE: 04/25/2020 7:50 [facility] DISPATCHER Center INDICATION: - Iliac Vessels COMPARISON: CT abdomen pelvis without contrast d ated 04/14/2018 TECHNIQUE: Volumetric CT of the abdomen and pelvis acquired without intravenous contrast. Axial, coronal and sagittal images are provided. IV contrast: None. Enteric contrast: None. FINDINGS: Limited evaluation due to lack of intravenous co ntrast. Clinical Trials Nurse: Noncontributory. Lines, tubes and hardware: None. Lower [...] [facility] 08:00:00-00:00 DATE: 04/25/2020 at 8:05 AM CREW DISPATCHER C enter INDICATION: - transplant TECHNIQUE: Volumetric [...] [facility] 08:00:00-00:00 DATE: 04/25/2020 7:50 [facility] DISPATCHER Center INDICATION: - Iliac Vessels COMPARISON: CT abdomen pelvis without contrast d ated 04/14/2018 TECHNIQUE: Volumetric CT of the abdomen and pelvis acquired without intravenous contrast. Axial, coronal and sagittal images are provided. IV contrast: None. Enteric contrast: None. FINDINGS: Limited evaluation due to lack of intravenous co ntrast. Clinical Trials Nurse: Noncontributory. Lines, tubes and hardware: None. Lower [...] [facility] 08:00:00-00:00 DATE: 04/25/2020 at 8:05 AM CREW DISPATCHER C enter INDICATION: - transplant TECHNIQUE: Volumetric [...] [facility] 08:00:00-00:00 DATE: 04/25/2020 7:50 CREW DISPATCHER Center INDICATION: - Iliac Vessels COMPARISON: CT abdomen pelvis without contrast d ated 04/14/2018 TECHNIQUE: Volumetric CT of the abdomen and pelvis acquired without intravenous contrast. Axial, coronal and sagittal images are provided. IV contrast: None. Enteric contrast: None. FINDINGS: Limited evaluation due to lack of intravenous co ntrast. Clinical Trials Nurse: Noncontributory. Lines, tubes and hardware: None. Lower thorax: Lower thoracic findings are as reported on concurrently obtained chest CT of the same date. Liver: Multiple hepatic cyst s are grossly unchanged when compared to prior examination, including a 3.6 cm cyst within hepatic segment 6. Biliary tree: No intra- or extrahepatic bile johnyn t dilation. Gallbladder: Normal. Pancreas: Normal. Spleen: [...] [facility] 08:00:00-00:00 DATE: 04/25/2020 at 8:05 AM CREW DISPATCHER C enter INDICATION: - transplant TECHNIQUE: Volumetric [...] [facility] 12:37:38-00:00 DATE: 04/01/2019 12:44 [facility] DISPATCHER Center INDICATION: - Pre-kidney transplant eval COMPARISON: [...] [facility] 12:37:38-00:00 DATE: 04/01/2019 12:44 CREW DISPATCHER Center INDICATION: - Pre-kidney transplant eval COMPARISON: [...] [facility] 12:37:38-00:00 DATE: 04/01/2019 12:44 [facility] DISPATCHER Center INDICATION: - Pre-kidney transplant eval COMPARISON: [...] kidney disease. 2019-04-01 EXAM: US ABDOMEN COMPLETE [facility] 08:32:00-00:00 DATE: 04/01/2019 0032 hours [...] ors steatosis. 2019-04-01 EXAM: US ABDOMEN COMPLETE [facility] 08:32:00-00:00 DATE: 04/01/2019 0032 hours [...] ors steatosis. 2019-04-01 EXAM: US ABDOMEN COMPLETE [facility] 08:32:00-00:00 DATE: 04/01/2019 0032 hours [...] [facility] 16:00:00-00:00 EXAM: MR VENOGRAM OF THE BRAIN [...] IV contrast: None. FINDINGS: MRA of the [place]: Normal flow-related signal i s [...] head ischemic infarction are seen on the cvaj-uy-iwyzhz imaging, with likely tiny infarcts throughout the [...] [facility] 16:00:00-:00 EXAM: MR VENOGRAM OF THE BRAIN WITHOUT [...] IV contrast: None. FINDINGS: MRA of the [place]: Normal flow-related signal i s [...] head ischemic infarction are seen on the ktvz-bp-ewazhd imaging, with likely tiny infarcts throughout the [...] [facility] 16:00:00-00:00 EXAM: MR VENOGRAM OF THE BRAIN WITHOUT CONTRAST [place] DATE: 09/14/2018 INDICATION: 'N18.9 Chronic k idney [...] IV contrast: None. FINDINGS: MRA of the [place]: Normal flow-related signal i s [...] head ischemic infarction are seen on the qcht-yl-cxtbks imaging, with likely tiny infarcts throughout the [...] thrombosis. 2018-06-30 EXAM: XR BONE SURVEY COMPLETE [facility] [place] 11:18:00-00:00 DATE: 06/30/2018 11:18 CDT INDICATION: - [...] myeloma. 2018-06-30 EXAM: [facility] [place] 11:18:00-00:00 DATE: 06/30/2018 11:18 CDT INDICATION: - [...] myeloma. 2018-06-30 EXAM: XR BONE SURVEY COMPLETE [facility] [place] 11:18:00-00:00 DATE: 06/30/2018 11:18 CDT INDICATION: - [...] 2018-05-12 EXAM: US ABDOMEN LIMITED [facility] 09:04:00-00:00 DATE: 05/12/2018 9:04 CDT Center INDICATION: [...] abnormality identified. 2018-05-12 EXAM: US ABDOMEN LIMITED [facility] 09:04:00-00:00 DATE: 05/12/2018 9:04 CDT Center INDICATION: [...] other abnormality identified. 2018-05-12 EXAM: US ABDOMEN [facility] 09:04:00-00:00 DATE: 05/12/2018 9:04 T Center INDICATION: ESRD, RTP workup, polycystic kidneys [...] [facility] 12:42:00-00:00 DATE: 04/14/2018 12:42 [facility] Center INDICATION: - Iliac Vessels. Prekidney transplan [...] [facility] 12:42:00-00:00 DATE: 04/14/2018 12:42 [facility] Center INDICATION: transplant eval - transplant eval [...] [facility] 12:42:00-00:00 DATE: 04/14/2018 12:42 CRE[facility] DISPATCHER Center INDICATION: - Iliac Vessels. Prekidney transplan [...] [facility] 12:42:00-00:00 DATE: 04/14/2018 12:42 [facility] Center INDICATION: transplant eval - transplant eval [...] [facility] 12:42:00-00:00 DATE: 04/14/2018 12:42 CREW DISPATCHER Center INDICATION: - Iliac Vessels. Prekidney transplan [...] [facility] 12:42:00-00:00 DATE: 04/14/2018 12:42 [facility] DISPATCHER Center INDICATION: transplant eval - transplant eval [...] ribs. 2016-11-03 EXAM: CT abdomen and pelvis [facility] 12:30:00-00:00 HISTORY: Abdominal aortic aneurysm, [place] COMPARISON: [...] Bladder is unremarkable. No free fluid. SL: [id number] 2016-11-03 EXAM: CT abdomen and pelvis [facility] 12:30:00-00:00 HISTORY: Abdominal aortic aneurysm, mala[place] COMPARISON: CT 06/20/2015 TECHNIQUE: Axial images of [facility] abdomen and pelvis without contrast. Sagittal and [...] Bladder is unremarkable. No free fluid. SL: [id number] 2016-11-03 EXAM: CT abdomen and pelvis Jonathan [...] Bladder is unremarkable. No free fluid. SL: [id number] 2016-11-03 EXAM: Ultrasound abdomen [facility] 11:44:00-00:00 [...] normal size. 7. IVC is visualized. SL: [id number] 2016-11-03 EXAM: Ultrasound abdomen [facility] 11:44:00-00:00 [...] normal size. 7. IVC is visualized. SL: [id number] 2016-11-03 EXAM: Ultrasound abdomen [facility] 11:44:00-00:00 [...] normal size. 7. IVC is visualized. SL: [id number] 2015-09-10 Clinical Indication: Mass; [facility] [place] 15:05:00-00:00 Comparison: None 2 view neck Prominent lingual tonsillar tissues. Normal epiglottis. No subglottic airway narrowing. Prevertebral soft tissues normal. No radiopaque foreign body. IMPRESSION: Suspect lingual tonsillar hypertroph y. SL: [id number] 2015-09-10 Clinical Indication: Mass; [facility] [place] 15:05:00-00:00 Comparison: None 2 view neck Prominent lingual tonsillar tissues. Normal epiglottis. No subglottic airway narrowing. Prevertebral soft tissues normal. No radiopaque foreign body. IMPRESSION: Suspect lingual tonsillar hypertroph y. SL: [id number] 2015-09-10 Clinical Indication: Mass; [facility] ial [place] 15:05:00-00:00 Comparison: None 2 view neck Prominent lingual tonsillar tissues. Normal epiglottis. No subglottic airway narrowing. Prevertebral soft tissues normal. No radiopaque foreign body. IMPRESSION: Suspect lingual tonsillar hypertroph y. SL: [id number] 2015-06-20 Patient Name: ZENIA JIMENES [facility] 13:53:00-00:00 : 1955; Age: 60 years y/o Male MR: [id number] Study: Spine Thoracic wo contrast MRI 06/20/2015 [...] right neural foraminal narrowing at T9-T10. SL: [id number] 2015-06-20 Study: Spine lumbar wo contrast MRI [facility] 13:53:00-00:00 Clinical Indication: Weakness Comparison: CT abdomen [...] stenosis throughout the lumba r spine. SL: [id number] 2015-06-20 Patient Name: ZENIA JMIENES [facility] 13:53:00-00:00 : 1955; Age: 60 years y/o Male MR: [id number] Study: Spine Thoracic wo contrast MRI 06/20/2015 [...] right neural foraminal narrowing at T9-T10. SL: [id number] 2015-06-20 Study: Spine lumbar wo contrast MRI [facility] 13:53:00-00:00 Clinical Indication: Weakness Comparison: CT abdomen [...] stenosis throughout the lumba r spine. SL: [id number] 2015-06-20 Patient Name: ZENIA JIMENES [facility] 13:53:00-00:00 : 1955; Age: 60 years y/o Male MR: [id number] Study: Spine Thoracic wo contrast MRI 06/20/2015 [...] right neural foraminal narrowing at T9-T10. SL: [id number] 2015-06-20 Study: Spine lumbar wo contrast MRI [facility] 13:53:00-00:00 Clinical Indication: Weakness Comparison: CT abdomen [...] stenosis throughout the lumba r spine. SL: [id number] 2015-06-[address] [facility] 11:44:20-00:00 TECHNIQUE: Contiguous transa xial images of [...] CT of the abdomen and pelvis. SL: [id number] 2015-06-[address] [facility] 11:44:20-00:00 TECHNIQUE: Contiguous transa xial images of [...] CT of the abdomen and pelvis. SL: [id number] 2015-06-[address] [facility] 11:44:20-00:00 TECHNIQUE: Contiguous transa xial images of [...] CT of the abdomen and pelvis. SL: [id number] 2015-06-20 Portable chest: The cardiome diastinal silhouette and pulmonary vasculature are within normal limits. The lungs and pleural spaces are clear. There are no acute osseous abnormalities. There is no significant change compared to 07/06/2013. [facility] 10:23:09-00:00 IMPRESSION: No acute radiographic abnormality in the chest. 13 2015-06-20 Portable chest: The cardiome diastinal silhouette and pulmonary vasculature are within normal limits. The lungs and pleural spaces are clear. There are no acute osseous abnormalities. There is no significant change compared to 07/06/2013. [facility] 10:23:09-:00 IMPRESSION: No acute radiographic abnormality in the chest. 13 2015-06-20 Portable chest: The cardiome diastinal silhouette and pulmonary vasculature are within normal limits. The lungs and pleural spaces are clear. There are no acute osseous abnormalities. There is no significant change compared to 07/06/2013. [facility] 10:23:09-:00
[2022-10-14 12:09] LABS: Absolute Lymphocytes (CBC) 1.6 K/uL (0.7-4.9); Lymphocytes % 16.5 % (15.3-44.8); Platelets 224 thou/uL (152-406); RBC Red Blood Cell Count 4.12 M/uL (4.33-5.43)
[2022-10-14 12:21] LABS: Albumin 2.8 g/dL (3.4-5.0); Bilirubin Direct 0.1 mg/dL (0-0.2); Bilirubin Indirect, Calculated 0.3 mg/dL (0.2-0.8); Bilirubin Total 0.4 mg/dL (0.2-1.0); Magnesium 1.8 mg/dL (1.6-2.4); Potassium 4.3 mEq/L (3.5-5.1); Protein, Total 6.9 g/dL (6.4-8.2); Troponin High Sensitivity 22.2 pg/mL (<58.9)
[2022-10-14 12:27] LABS: Specific Gravity 1.011 (1.005-1.030); Urine Bacteria None Seen /HPF (<20); Urine Bilirubin NEGATIVE (Negative); Urine Blood Trace (Negative); Urine Clarity Clear (Clear); Urine Color Light-Yellow (Yellow); Urine Glucose NEGATIVE (Negative); Urine Protein 1+ (Negative); Urine RBC <5 /HPF (None Seen); Urine Urobilinogen Normal (Normal)
--- NOTE | 2022-10-14 12:34 | RAD REPORT ---
EXAM DESCRIPTION: Carlos Single View10/14/2022 12:20 pm CLINICAL HISTORY: Generalize weakness. Hypotension COMPARISON: August 2022 FINDINGS: The lungs appear clear of acute infiltrate. The heart is normal size IMPRESSION: No acute abnormalities displayed
--- NOTE | 2022-10-14 12:48 | EDPHYS ---
Physician Documentation [facility] Name: Stan Jimenes Age: 67 yrs Sex: Male : 1955 Arrival Date: 10/14/2022 Time: 10:45 Bed 3 Private MD: ED Physician Jonatan Alarcon HPI: 10/14 11:12 This 67 yrs old Male presents to ER via Ambulatory with complaints of Kidney issues ms3 sent by Dr. Velasquez. 11:12 67-year-old male with past medical history of end-stage renal disease on peritoneal ms3 dialysis, hypertension, hyperlipidemia presents from Dr. Velasquez' office for generalized weakness. Patient states this has been ongoing for 3 to 4 days. Patient denies pain. Patient states he had difficulty urinating. Patient denies nausea, vomiting, chills, fever, abdominal pain, changes in color of peritoneal fluid. Patient denies alleviating or inciting factors.. Historical: - Allergies: 11:08 Iodine; ap3 - PMHx: 11:08 "Dialysis for the stomach, not the blood"; AAA; Aneurysm; COPD; Diabetes - NIDDM; Gout; ap3 High Cholesterol; Hypertension; POLYCYSTIC KIDNEY DISEASE; - Immunization history:: Client reports receiving the 2nd dose of the Covid vaccine. - Social history:: Smoking status: Patient denies any tobacco usage or history of. ROS: 11:12 Constitutional: Negative for fever, and chills. Neck: Negative for injury, pain, and ms3 swelling, Cardiovascular: Negative for chest pain, and palpitations. Respiratory: Negative for shortness of breath, cough, wheezing, and pleuritic chest pain, Abdomen/GI: Negative for abdominal pain, nausea, vomiting, diarrhea, and constipation, MS/Extremity: Negative for injury and deformity, Skin: Negative for injury, rash, and discoloration, Neuro: Negative for headache, weakness, numbness, tingling. Exam: 11:12 Constitutional: This is a well developed, well nourished patient who is awake, alert, ms3 and in no acute distress. Head/Face: Normocephalic, atraumatic. Neck: Trachea midline, no cervical lymphadenopathy. Supple, full range of motion without nuchal rigidity, or vertebral point tenderness. No Meningismus. Chest/axilla: Normal chest wall appearance and motion. Nontender with no deformity. Cardiovascular: Regular rate and rhythm with a normal S1 and S2. No gallops, murmurs, or rubs. Normal PMI, no JVD. No pulse deficits. Respiratory: Lungs have equal breath sounds bilaterally, clear to auscultation and percussion. No rales, rhonchi or wheezes noted. No increased work of breathing, no retractions or nasal flaring. Abdomen/GI: Soft, non-tender, with normal bowel sounds. No distension or tympany. No guarding or rebound. No evidence of tenderness throughout. Skin: Warm, dry with normal turgor. Normal color with no rashes, no lesions, and no evidence of cellulitis. MS/ Extremity: Pulses equal, no cyanosis. Neurovascular intact. Full, normal range of motion. 11:52 ECG was reviewed by the Attending Physician. ms3 Vital Signs: 11:07 BP 127 / 72; Pulse 86; Resp 17; Temp 97.7; Pulse Ox 97% ; Pain 0/10; ap3 12:19 BP 123 / 78; Pulse 71; Resp 16; Pulse Ox 97% on R/A; me1 13:00 BP 119 / 63; Pulse 74; Resp 16; Pulse Ox 99% ; ko1 14:00 BP 140 / 90; Pulse 78; Resp 18; Pulse Ox 99% ; ko1 11:07 Pain Scale: Adult ap3 MDM: 11:12 Differential Diagnosis Electrolyte abnormality vs UTI vs ND vs Anemia. ms3 11:16 Patient medically screened. ms3 12:46 Data reviewed: vital signs, nurses notes, lab test result(s), EKG, radiologic studies, ms3 and as a result, I will admit patient. Consideration of Admission/Observation Patient was admitted/placed on observation. Management of patient was discussed with the following: Hospitalist: Tre on behalf of Dr Ya. Audio Visual Technician: Dr Velasquez. Would like patient to receive 500 ml NS bolus and NS at 75 ml/hr. 10/14 11:11 Order name: Basic Metabolic Panel; Complete Time: 12:39 ms3 10/14 11:11 Order name: CBC with Diff; Complete Time: 12:39 ms3 10/14 11:11 Order name: LFT's; Complete Time: 12:39 ms3 10/14 11:11 Order name: Magnesium; Complete Time: 12:39 ms3 10/14 11:11 Order name: Troponin HS; Complete Time: 12:39 ms3 10/14 11:11 Order name: Urinalysis w/ reflexes; Complete Time: 12:39 ms3 10/14 11:11 Order name: XRAY Chest (1 view); Complete Time: 12:39 ms3 10/14 15:45 Order name: CT; Complete Time: 16:18 EDMS 10/14 15:59 Order name: CT; Complete Time: 16:18 EDMS 10/14 11:11 Order name: EKG; Complete Time: 11:12 ms3 10/14 11:11 Order name: Cardiac monitoring; Complete Time: 11:41 ms3 10/14 11:11 Order name: EKG - Nurse/Tech; Complete Time: 11:52 ms3 10/14 11:11 Order name: IV Saline Lock; Complete Time: 11:49 ms3 10/14 11:11 Order name: Labs collected and sent; Complete Time: 11:50 ms3 10/14 11:11 Order name: O2 Per Protocol; Complete Time: 11:41 ms3 10/14 11:11 Order name: O2 Sat Monitoring; Complete Time: 11:41 ms3 EC:52 Rate is 78 beats/min. Rhythm is regular. QRS [place] is Normal. [place] interval is prolonged. ms3 QRS interval is normal. Clinical impression: NSR w/ Non-specific ST/T Changes. Interpreted by me. Reviewed by me. Administered Medications: 13:12 Drug: NS 0.9% IV 500 ml Route: IV; Rate: bolus; Site: right antecubital; me1 14:18 Follow up: IV Status: Completed infusion; IV Intake: 500ml me1 14:18 Drug: NS 0.9% IV 1000 ml Route: IV; Rate: 75 ml/hr; Site: right antecubital; me1 Disposition Summary: 10/14/22 12:48 Hospitalization Ordered Hospitalization Status: Observation ms3 Provider: Erasto Ya ms3 Location: Telemetry/MedSurg (observation) ms3 Condition: Stable ms3 Problem: new ms3 Symptoms: are unchanged ms3 Bed/Room Type: Standard ms3 Room Assignment: 223(10/14/22 16:51) bd Diagnosis - Muscle weakness (generalized) ms3 - Anemia, unspecified ms3 - End stage renal disease ms3 Forms: - Medication Reconciliation Form ms3 - SBAR form ms3 - Leadership Thank You Letter ms3 Signatures: Dispatcher [employer] Clarisa Drummond Amanda RN RN ap3 Jonatan Alarcon, DO ms3 Gertrude Cohen RN RN me1 Corrections: (The following items were deleted from the chart) 16:51 12:48 ms3 bd
--- NOTE | 2022-10-14 12:48 | ER ---
Nurse's Notes [facility] Name: Stan Jimenes Age: 67 yrs Sex: Male : 1955 Arrival Date: 10/14/2022 Time: 10:45 Bed 3 Private MD: Diagnosis: Muscle weakness (generalized);Anemia, unspecified;End stage renal disease Presentation: 10/14 11:07 Chief complaint: Patient states: he was sent by his provider for feeling weak, having ap3 difficulty urinating, and reports hypotension. Coronavirus screen: At this time, the client does not indicate any symptoms associated with coronavirus-19. Ebola Screen: No symptoms or risks identified at this time. Initial Sepsis Screen: Does the patient meet any 2 criteria? No. Patient's initial sepsis screen is negative. Does the patient have a suspected source of infection? No. Patient's initial sepsis screen is negative. Risk Assessment: Do you want to hurt yourself or someone else? Patient reports no desire to harm self or others. Onset of symptoms was October 10, 2022. 11:07 Method Of Arrival: Ambulatory ap3 11:07 Acuity: CHAVA 3 ap3 Triage Assessment: 11:08 General: Appears in no apparent distress. Behavior is calm, cooperative, appropriate ap3 for age. General: Reports fatigue for. Pain: Denies pain. Neuro: Level of Consciousness is awake, alert, obeys commands, Oriented to person, place, time, situation. Cardiovascular: Patient's skin is warm and dry. Respiratory: Airway is patent Respiratory effort is even, unlabored, Respiratory pattern is regular, symmetrical. : Reports inability to void. Historical: - Allergies: 11:08 Iodine; ap3 - PMHx: 11:08 "Dialysis for the stomach, not the blood"; AAA; Aneurysm; COPD; Diabetes - NIDDM; Gout; ap3 High Cholesterol; Hypertension; POLYCYSTIC KIDNEY DISEASE; - Immunization history:: Client reports receiving the 2nd dose of the Covid vaccine. - Social history:: Smoking status: Patient denies any tobacco usage or history of. Screenin:09 [facility] ED Fall Risk Assessment (Adult) History of falling in the last 3 months, ap3 including since admission No falls in past 3 months (0 pts). Abuse screen: Denies threats or abuse. Nutritional screening: No deficits noted. Tuberculosis screening: No symptoms or risk factors identified. Assessment: 12:13 General: Appears comfortable, Behavior is calm, cooperative, appropriate for age, me1 Reports fatigue for 2-3 days, Sent by provider for feeling weak, having difficulty urinating and reports hypotension. Pain: Denies pain. Neuro: Level of Consciousness is awake, alert, obeys commands, Oriented to person, place, time, situation, Appropriate for age. Cardiovascular: Capillary refill < 3 seconds Patient's skin is warm and dry. Respiratory: Airway is patent Respiratory effort is even, unlabored, Respiratory pattern is regular, symmetrical. GI: No deficits noted. : Reports it is often difficult for him to urinate. States "once it gets started it seems normal then it stops and he has trouble starting again.". 14:20 Reassessment: Patient appears in no apparent distress at this time. No changes from me1 previously documented assessment. Vital Signs: 11:07 BP 127 / 72; Pulse 86; Resp 17; Temp 97.7; Pulse Ox 97% ; Pain 0/10; ap3 12:19 BP 123 / 78; Pulse 71; Resp 16; Pulse Ox 97% on R/A; me1 13:00 BP 119 / 63; Pulse 74; Resp 16; Pulse Ox 99% ; ko1 14:00 BP 140 / 90; Pulse 78; Resp 18; Pulse Ox 99% ; ko1 11:07 Pain Scale: Adult ap3 ED Course: 10:49 Patient arrived in ED. im 10:51 Skylar Faust FNP-C is [facility]. snw 10:51 Basil Ya MD is Attending Physician. snw 10:54 Jonatan Alarcon DO is Attending Physician. ms3 11:08 Triage completed. ap3 11:09 Arm band placed on right wrist. ap3 11:50 Basic Metabolic Panel Sent. me1 11:50 CBC with Diff Sent. me1 11:50 LFT's Sent. me1 11:50 Magnesium Sent. me1 11:50 Troponin HS Sent. me1 11:52 Inserted saline lock: 22 gauge in right antecubital area, using aseptic technique. me1 12:13 Patient has correct armband on for positive identification. Bed in low position. Call me1 light in reach. Provided Education on: POC. Verbalized understanding.. 12:13 No provider procedures requiring assistance completed. IV Changed dressing on. me1 12:19 Urinalysis w/ reflexes Sent. me1 12:21 XRAY Chest (1 view) In Process Unspecified. EDMS 12:28 Lizeth Puga, RN is Primary Nurse. ko1 12:47 Erasto Ya MD is Hospitalizing Provider. ms3 17:14 Patient admitted, IV remains in place. ko1 Administered Medications: 13:12 Drug: NS 0.9% IV 500 ml Route: IV; Rate: bolus; Site: right antecubital; me1 14:18 Follow up: IV Status: Completed infusion; IV Intake: 500ml me1 14:18 Drug: NS 0.9% IV 1000 ml Route: IV; Rate: 75 ml/hr; Site: right antecubital; me1 Medication: 12:13 VIS not applicable for this client. me1 Intake: 14:18 IV: 500ml; Total: 500ml. me1 Outcome: 12:48 Decision to Hospitalize by Provider. ms3 17:14 Admitted to Med/surg accompanied by tech, via wheelchair, room 224, with chart, Report ko1 called to lata candelario 17:18 Condition: stable ko1 17:18 Instructed on the need for admit. 17:38 Patient left the ED. ko1 Signatures: Dispatcher [employer] Skylar Frazier, HEAVY EQUIPMENT RENTAL MANAGER-C HEAVY EQUIPMENT RENTAL MANAGER-Csnw Ruchi Arguelles, RN RN [id number] Jonatan Alarcon DO DO ms3 Lizeth Puga, RN RN ko1 Aida Richey Michelle, RN RN me1
[2022-10-14] MEDS ORDERED: NA CHLORIDE 0.9% 1,000 ML ONE (13:15)
[2022-10-14] MEDS ORDERED: HYDROCODONE/APAP 10/325 TAB PO PRN (14:37)
[2022-10-14] MEDS ORDERED: ACETAMINOPHEN 325 MG TABLET PO PRN ×2 (14:37→14:38)
[2022-10-14] MEDS ORDERED: ONDANSETRON 4 MG/2 ML VIAL IV PRN (14:44)
--- NOTE | 2022-10-14 14:47 | P.HP ---
Certification for Inpatient Patient admitted to: Inpatient With expected LOS: >2 Midnights Patient will require the following post-hospital care: None Practitioner: I am a practitioner with admitting privileges, knowledge of patient current condition, hospital course, and medical plan of care. Services: Services provided to patient in accordance with Admission requirements found in Title 42 Section 412.3 of the Code of Federal Regulations Patient History Date of Service: 10/14/22 Reason for admission: Generalized weakness. History of Present Illness: Patient is a 67-year-old male with a past medical history significant for AAA, COPD, DM 2, gout, HLD, hypertension, ESRD who presents with complaint of generalized weakness that has been ongoing for the past 1 week. Patient reported associated signs and symptoms of poor appetite, shortness of breath with exertion, dysuria and dizziness. Patient denies any other signs and symptoms. Symptoms are aggravated or relieved by nothing. Patient is on peritoneal dialysis. Patient reported that he went for a follow-up appointment with his set up mold technician and reported his symptoms to his kidney doctor who instructed him to go to the ER. Patient decided to present to the ER as directed. Allergies No Known Allergies Allergy (Verified 07/09/20 10:01) Home Medications: Albuterol Sulfate [Proair Respiclick] 90 mcg IH PRN PRN 06/29/20 Allopurinol 300 mg PO DAILY 06/29/20 Aspirin [Aspirin EC 81 MG] 81 mg PO DAILY 06/29/20 Atorvastatin Calcium 20 mg PO DAILY 06/29/20 Carvedilol [Coreg] 12.5 mg PO BID 06/29/20 Ergocalciferol (Vitamin D2) [Vitamin D2] 50,000 unit PO EVERY 7TH DAY 06/29/20 Famotidine 20 mg PO BID 06/29/20 Fluticasone/Vilanterol [Breo Ellipta 100-25 Mcg INH] 1 each IH PRN PRN 06/29/20 Furosemide 20 mg PO DAILY 06/29/20 Hydralazine [Apresoline*] 10 mg PO BID 06/29/20 Magnesium Oxide 400 mg PO DAILY 06/29/20 Tadalafil [Cialis] 5 mg PO PRN PRN 06/29/20 Tamsulosin [Flomax*] 0.4 mg PO BEDTIME 06/29/20 calcitrioL [Rocaltrol] 0.25 mcg PO SEECOM 06/29/20 Amlodipine [Norvasc*] 1 tab PO DAILY 07/09/20 Ivermectin 7 tab PO DAILY 07/09/20 - Past Medical/Surgical History Diabetic: Yes -: Hypertension -: Hyperlipidemia -: Aortic aneurysm stent -: Polycystic kidney disease -: Chronic kidney disease -: GERD -: Diabetes mellitus type 2 -: COPD -: AAA repair Psychosocial/ Personal History: Patient is , has 2 children and is now retired. - Family History dad -: Diabetes, Kidney disease - Social History Smoking Status: Former smoker Alcohol use: No CD- Drugs: No Caffeine use: No Place of Residence: Home Review of Systems General: Weakness, Other (Poor appetite) Eyes: Unremarkable ENT: Unremarkable Respiratory: SOB with Excertion Cardiovascular: Unremarkable Gastrointestinal: Unremarkable Genitourinary: Dysuria Musculoskeletal: Unremarkable Integumentary: Unremarkable Neurological: Other (Dizziness) Lymphatics: Unremarkable Physical Examination - Physical Exam General: Alert, In no apparent distress, Oriented x3, Cooperative HEENT: Atraumatic, PERRLA, Mucous membr. moist/pink, EOMI, Sclerae nonicteric Neck: Supple, 2+ carotid pulse no bruit, No LAD, Without JVD or thyroid abnormality Respiratory: Clear to auscultation bilaterally, Normal air movement Cardiovascular: No edema, Regular rate/rhythm, Normal S1 S2 Capillary refill: <2 Seconds Gastrointestinal: Normal bowel sounds, Soft and benign, No tenderness Musculoskeletal: No clubbing, No swelling, No tenderness Integumentary: No rashes Neurological: Normal speech, Normal tone, Normal affect Lymphatics: No axilla or inguinal lymphadenopathy - Studies Laboratory Data (last 24 hrs) 10/14/22 10/14/22 11:47 11:47 WBC 9.70 Hgb 12.7 L Hct 40.0 Plt Count 224 Sodium 139 Potassium 4.3 BUN 46 H Creatinine 7.88 H Glucose 100 Magnesium 1.8 Total Bilirubin 0.4 AST 7 L ALT 11 L Alkaline Phosphatase 47 Assessment and Plan - Plan -- Generalized weakness. CT head indicates Left caudate head focus of hypoattenuation, nonspecific and may represent a remote lacunar infarct. No other evidence of an acute intracranial process MRI brain pending for further evaluation. -- ESRD. Patient on peritoneal dialysis. Nephrology consulted. Recommended a normal saline 500 mL bolus and gentle IV hydration with normal saline thereafter at 50 ml/hr. Real Estate Investor recommended CT abdomen\pelvis. We will await further recommendation from set up mold technician. --DM2. BS monitoring with sliding scale insulin. -- Hypertension. Stable. Continue home medications. --Gout. Continue allopurinol. --Hyperlipidemia. Continue statin. --GERD. Continue medication --BPH. Continue home medication. --COPD. Stable. Continue medication. --AAA. S\P Aortic aneurysm stent. We will keep blood pressure controlled. Continue aspirin. -- Anemia of chronic disease. H&H stable. We will continue to monitor hemoglobin and transfuse if less than 7.0. --DVT prophylaxis with Lovenox subQ. Discharge Plan: Home Plan to discharge in: Greater than 2 days - Advance Directives Does patient have a Living Will: No Does patient have a Durable POA for Healthcare: No - Code Status/Comfort Care Code Status Assessed: Yes Physician Review: Patient Assessed, Agree with Above Assessment and Plan Critical Care: No
[2022-10-14] MEDS: NA CHLORIDE 0.9% 1,000 ML IV SCH ×2 (15:00→18:48)
--- NOTE | 2022-10-14 15:44 | RAD REPORT ---
EXAM DESCRIPTION: CT - Abdomen Pelvis Wo Contrast - 10/14/2022 2:51 pm CLINICAL HISTORY: Abdominal pain COMPARISON: Abdomen Pelvis Wo Contrast dated 09/11/2022; Stone Protocol dated 05/20/2022; Abdomen Pelvis Wo Contrast dated 12/25/2021; Abdomen Pelvis Wo Contrast dated 09/30/2020 TECHNIQUE: Thin cut axial CT imaging of the abdomen and pelvis was performed without IV contrast. Mu ltiplanar reformats were generated and reviewed. All CT scans are performed using dose optimization technique as appropriate and may include automated exposure control or mA/KV adjustment according to patient size. FINDINGS: Stable rounded right lower lobe subpleural 1.7 cm nodule, dating back at least to October 01. No other suspicious findings in the lung bases. The adrenal glands, spleen, and pancreas show no suspicious findings apart from stable punctate calci fication along the right adrenal gland. Gallbladder is decompressed limiting evaluation. The liver again shows numerous lobulated fluid density parenchymal lesions, the largest is in the sub capsular right lobe near the dome, measuring 5 centimeter Bilateral polycystic kidneys again seen. Some of the cysts are hyperdense suggesting hemorrhagic natu re. No significant interval change. No hydro nephrosis or radiopaque calculi. Aorto bi-iliac stent grafts in place. Fusiform aneurysmal dilation of the aorta and common iliac marti dain, not significantly changed. Peritoneal dialysis catheter is present. No dilated bowel loops or bowel wall thickening. Colonic diverticulosis. No free air, free fluid or i nflammatory stranding. No hernia, mass or bulky lymphadenopathy. Prostatic calcifications. The urinary bladder is without significant finding. No suspicious bony findings. IMPRESSION: No acute intra-abdominal process. Stable chronic findings including bilateral polycystic kidneys, numerous liver cysts, and stable aort o bi-iliac aneurysmal dilation with stent grafts in place.
--- NOTE | 2022-10-14 15:59 | RAD REPORT ---
EXAM DESCRIPTION: CT - Head Brain Wo Cont - 10/14/2022 2:55 pm CLINICAL HISTORY: Generalized Weakness COMPARISON: Abdomen Pelvis Wo Contrast dated 10/14/2022 TECHNIQUE: Noncontrast head CT images were obtained without IV contrast. Multiplanar reformats were generated and reviewed. All CT scans are performed using dose optimization technique as appropriate and may include automated exposure control or mA/KV adjustment according to patient size. FINDINGS: No intracranial hemorrhage, mass, or edema. Midline structures are unremarkable. Normal ventricular caliber for age. Left caudate head focus of hypoattenuation, nonspecific and may represent a remote lacunar infarct. G ray-white matter differentiation is otherwise preserved, without evidence of acute infarct. No abnorm al extra-axial fluid collections. Mastoid air cells and visualized portions of the paranasal sinuses are clear. No acute bony findings. IMPRESSION: Left caudate head focus of hypoattenuation, nonspecific and may represent a remote lacun ar infarct. No other evidence of an acute intracranial process.
[2022-10-14 18:05] VITALS: O2SAT 97; BMI 29.6
[2022-10-14 18:51] LABS: Magnesium 1.7 mg/dL (1.6-2.4); Phosphorus 6.1 mg/dL (2.5-4.9)
[2022-10-14 19:08] LABS: Thyroid Stimulating Hormone 8.37 uIU/mL (0.358-3.740)
[2022-10-14] MEDS ORDERED: D50W 25 GM/50 ML SYRINGE IV PRN (19:17)
[2022-10-14] MEDS ORDERED: GLUCAGON 1 MG/VIAL IM PRN (19:17)
[2022-10-14] MEDS ORDERED: D10W 125 ML IV PRN (19:23)
[2022-10-14] MEDS: INSULIN -REGULAR HUMAN 50 UNIT/0.5 ML ML SQ SCH (21:00)
[2022-10-14] MEDS: HEPARIN 5000 UNIT/ML 1 ML VIAL SQ SCH (21:19)
[2022-10-15 03:49] LABS: Absolute Lymphocytes (CBC) 1.5 K/uL (0.7-4.9); Hematocrit 37.4 % (39.6-49.0); Lymphocytes % 17.4 % (15.3-44.8); MCV 96.5 fL (80-100); MPV 7.8 fL (7.6-11.3); Platelets 208 thou/uL (152-406); RBC Red Blood Cell Count 3.88 M/uL (4.33-5.43)
[2022-10-15 04:15] LABS: Potassium 3.8 mEq/L (3.5-5.1)
[2022-10-15] MEDS: INSULIN -REGULAR HUMAN 50 UNIT/0.5 ML ML SQ SCH ×4 (07:30→20:30)
--- NOTE | 2022-10-15 07:32 | P.PN ---
Date of Service: 10/15/22 Subjective: decreased intake last few months - feels full faster than normal (eating half of normal meals) reports worsening trouble urinating over last 2 weeks - difficulty starting feeling weak / rundown for the last few days otherwise no new / worsening problems ROS: 10 point ROS as noted above, otherwise negative Physical Exam: GEN: Alert, oriented, NAD HEENT: Normal conjunctiva, sclera anicteric CV: Regular rate and rhythm, no edema Pulm: Nonlabored respirations on room air ABD: Soft, nontender, nondistended, PD cath in place, no surrounding infectious signs Integumentary: No rashes Neuro: Normal speech, normal affect vitals reviewed Problem List: Generalized weakness Urinary Hesitancy ESRD NIDDM2 Hypertension Gout Hyperlipidemia GERD BPH COPD, stable AAA Anemia of chronic disease Generalized weakness CT head(10/14): Left caudate head focus of hypoattenuation, nonspecific and may represent a remote lacunar infarct. MRI brain (10/15): Chronic findings including a small remote left caudate head infarct, and presumed sequelae of chronic small vessel ischemic changes. PT consult Urinary Hesitancy reports worsening trouble urinating over last 2 weeks difficulty starting - takes ~5-10 minutes to start once has the urge to go concern for prostate complications check PVR ESRD CT abdomen (10/14): Stable chronic findings including bilateral polycystic kidneys, numerous liver cysts, and stable aorto bi-iliac aneurysmal dilation with stent grafts in place. Patient on peritoneal dialysis. Nephrology consulted. Continue IVF Monitor renal function NIDDM2. SSI Hypertension. Stable. Continue home medications. Gout. Continue allopurinol. Hyperlipidemia. Continue statin. GERD. Continue medication BPH. Continue Flomax COPD. Stable. Continue medication. AAA. s/p Aortic aneurysm stent. Continue aspirin. Anemia of chronic disease. H&H stable. transfuse if hgb < 7 VTE: heparin sq Code: Full Dispo: Home, ~2 days
[2022-10-15] MEDS ORDERED: POTASSIUM CL SA 10 MEQ TAB PO ONE (08:25)
[2022-10-15] MEDS: ASPIRIN EC 81 MG TAB PO SCH (09:24)
[2022-10-15] MEDS: HEPARIN 5000 UNIT/ML 1 ML VIAL SQ SCH ×2 (09:24→20:29)
--- NOTE | 2022-10-15 11:33 | RAD REPORT ---
EXAM DESCRIPTION: MRI - Brain Wo Cont - 10/15/2022 10:43 am CLINICAL HISTORY: CVA COMPARISON: Noncontrast head CT 10/14/2022 TECHNIQUE: Multiplanar multisequence MRI of the brain performed without IV contrast. FINDINGS: Motion artifact somewhat limits evaluation, despite attempts at repeat imaging. No evidence of acute infarct or other diffusion signal abnormality. Focus of fluid signal intensity i n the caudate head with adjacent minimal gliosis, likely relates to a small remote infarct. No evidence of acute intracranial hemorrhage or abnormal extra-axial fluid collections. Mild diffuse parenchymal volume loss. Ventricular caliber otherwise within normal for age. Midline st ructures are unremarkable. Scattered subcortical and deep white matter T2/FLAIR hyperintensities, as well as confluent central p ontine T2 hyperintensities. These are nonspecific, but suggestive of chronic small vessel ischemic ch anges. No mass effect or midline shift. Major vascular flow voids are preserved. Mastoid air cells and paranasal sinuses are clear. IMPRESSION: No acute intracranial process. No evidence of ventriculomegaly or mass effect. Chronic findings including a small remote left caudate head infarct, and presumed sequelae of chronic small vessel ischemic changes as above.
--- NOTE | 2022-10-15 14:24 | CON ---
Date of Consultation: 10/15/2022 History Of Present Illness: This is a 67-year-old gentleman, well known to me from the office and [facility] with significant past medical history of end-stage renal disease on PD, secondary to po lycystic kidney disease, AAA, COPD, diabetes, hyperlipidemia, the patient came to the office feeling weak, fatigued, losing energy with difficulty urinating. The patient had alarming on his PD regimen. The patient found to have marginal low blood pressure, for that reason sent to the hospital, in the hospital did not find to have any UTI. The patient admitted for further evaluation and hydration. Over the night, we adjusted his PD regimen to have residual. We will start the patient on hydration. Past Medical History: Includes; 1.AAA. 2.COPD. 3.Diabetes. 4.End-stage renal disease. 5.Gout. 6.Hyperlipidemia. 7.Hypertension. 8.End-stage renal disease. 9.Polycystic kidney disease. 10.GERD. Allergies: NO KNOWN DRUGS ALLERGY. Home Medications: Include albuterol, allopurinol, atorvastatin, carvedilol, ergocalciferol, flucytos ine, Lasix daily, hydralazine 10 b.i.d., tadalafil, calcitriol, Flomax 0.4, . Past Surgical History: Includes; 1.PD catheter placement. 2.AAA repair. Family History: Positive for diabetes, polycystic kidney disease. Social History: Ex-smoker. Denied alcohol, denied drugs abuse. Review of Systems: Head and Neck: No red eye. No ear pain. GI: Has decreased intake. : No polyuria. Has dysuria. Has hesitancy. Pneumatic Tool Repairer: Not applicable. Respiratory: No shortness of breath. Cardiovascular: No chest pain. Endocrine: No polydipsia. Skin: No rash. Neuro: Has neuropathy. Musculoskeletal: No joint pain. Physical Examination: Vital Signs: When I saw the patient; blood pressure 104/60, pulse of 88. Chest: Clear to auscultation. Heart: S1, S2. Regular. Abdomen: Soft, nontender. Extremities: No edema. Neurologic: Alert. No focality. Laboratory Data: Hemoglobin 12.7, WBC 9.7. Sodium 139, potassium 4.3, bicarb 26, BUN 46, creatinine 7.6, calcium 9.3. TSH 8.3. Urinalysis negative for infection. Assessment And Plan: 1.End-stage renal disease, looked to me on the dry side. We will adjust his prescription. We will keep residual 10% and we will monitor the patient. 2.Hypertension, currently blood pressure on the lower side. I am going to go ahead and discontinue blood pressure medications and we will follow up. We will start the patient on gentle hydration. 3.Malfunction of PD catheter. We will keep residual. We will send for CT to check the position and we will monitor. 4.Anemia of chronic kidney disease. No need for ROB. 5.Hyponatremia, will be corrected with dialysis. 6.Polycystic kidney disease, stable. 7.Diabetes as by primary. HE/LB Voice ID: [id number] Report ID: [id number]
--- NOTE | 2022-10-15 15:23 | PN ---
Date of Progress Note: 10/15/2022 Subjective: The patient was admitted with malfunction of PD catheter, slow drainage, low blood press ure. Over the night, we started the patient on IV hydration. Workup was negative. Physical Examination: Chest: Clear to auscultation. Heart: S1, S2. Regular. Abdomen: Soft, nontender. Extremities: No edema. Neurologic: Alert. No focality. The patient had PD treatment yesterday, only slow drainage on the third exchange and last exchange. The patient's CT showing bladder distention. Laboratory Data: Sodium 138, potassium 3.8, bicarb 24, BUN 43, creatinine , calcium 8.7, p hosphorus 6.1, magnesium 1.7. Current Medications: The patient on include; 1.Heparin. 2.Tylenol. 3.IV fluid 50 per hour. 4.KCl. Assessment And Plan: 1.End-stage renal disease, looked to me on the dry side. I am going to hold on IV fluid for the cathy e being and we will monitor. 2.Hypertension, currently blood pressure on the lower side. Hold all blood pressure medications. 3.Malfunction of PD catheter. CT showed bladder distention. We will place the patient on finasteri de and Flomax. The patient is going to need Urology evaluation as outpatient. 4.Diabetes as by primary. 5.Hypokalemia. No need for supplement. 6.Secondary hyperparathyroidism. I am going to start the patient on Renvela. 7.Urinary retention. We will start the patient on finasteride and Flomax. The patient needs follow up with Urology. We will check for pre and postvoid residual. MA/MODL Voice ID: [id number] Report ID: [id number]
[2022-10-15] MEDS: SEVELAMER CARBONATE 800 MG TABLET PO SCH (17:56)
--- NOTE | 2022-10-15 18:29 | EKG ---
Test Date: 2022-10-14 Test Time: 11:48:36 Equipment Monitor Phototypesetting: MU MEASUREMENT RESULTS: Intervals: Rate: 78 ND: 222 QRSD: 78 QT: 366 QTc: 417 [place]: P: 84 ND: 222 QRS: 11 T: 83 INTERPRETIVE STATEMENTS: Sinus rhythm with PVCs Septal infarct, age undetermined Abnormal ECG Compared to ECG 09/11/2022 15:16:03 Myocardial infarct finding still present Electronically Signed On 10-15-22 18:26:55 CDT by Eliu Shanks
[2022-10-15] MEDS: TAMSULOSIN 0.4 MG SR CAP PO SCH (20:29)
[2022-10-16 02:56] LABS: Absolute Lymphocytes (CBC) 1.7 K/uL (0.7-4.9); Hematocrit 37.2 % (39.6-49.0); MCV 96.3 fL (80-100); MPV 7.7 fL (7.6-11.3); Platelets 211 thou/uL (152-406); RBC Red Blood Cell Count 3.86 M/uL (4.33-5.43)
[2022-10-16 03:16] LABS: Albumin 2.6 g/dL (3.4-5.0); Bilirubin Total 0.4 mg/dL (0.2-1.0); Magnesium 1.6 mg/dL (1.6-2.4); Phosphorus 6.6 mg/dL (2.5-4.9); Potassium 4.4 mEq/L (3.5-5.1); Protein, Total 6.3 g/dL (6.4-8.2)
[2022-10-16] MEDS ORDERED: MAGNESIUM SULFATE 1 gm IVPB 1 GM/100 ML BAG IV ONE (03:38)
[2022-10-16] MEDS: INSULIN -REGULAR HUMAN 50 UNIT/0.5 ML ML SQ SCH (07:30)
--- NOTE | 2022-10-16 07:48 | P.PN ---
Date of Service: 10/16/22 Subjective: ROS: 10 point ROS as noted above, otherwise negative Physical Exam: GEN: Alert, oriented, NAD HEENT: Normal conjunctiva, sclera anicteric CV: Regular rate and rhythm, no edema Pulm: Nonlabored respirations on room air ABD: Soft, nontender, nondistended, PD cath in place, no surrounding infectious signs Integumentary: No rashes Neuro: Normal speech, normal affect vitals reviewed Problem List: Generalized weakness Urinary Hesitancy ESRD NIDDM2 Hypertension Gout Hyperlipidemia GERD BPH COPD, stable AAA Anemia of chronic disease Generalized weakness CT head(10/14): Left caudate head focus of hypoattenuation, nonspecific and may represent a remote lacunar infarct. MRI brain (10/15): Chronic findings including a small remote left caudate head infarct, and presumed sequelae of chronic small vessel ischemic changes. PT consult Urinary Hesitancy reports worsening trouble urinating over last 2 weeks difficulty starting - takes ~5-10 minutes to start once has the urge to go concern for prostate complications check PVR ESRD CT abdomen (10/14): Stable chronic findings including bilateral polycystic kidneys, numerous liver cysts, and stable aorto bi-iliac aneurysmal dilation with stent grafts in place. Patient on peritoneal dialysis. Nephrology consulted. Continue IVF Monitor renal function NIDDM2. SSI Hypertension. Stable. Continue home medications. Gout. Continue allopurinol. Hyperlipidemia. Continue statin. GERD. Continue medication BPH. Continue Flomax COPD. Stable. Continue medication. AAA. s/p Aortic aneurysm stent. Continue aspirin. Anemia of chronic disease. H&H stable. transfuse if hgb < 7 VTE: heparin sq Code: Full Dispo: Home, ~2 days
--- NOTE | 2022-10-16 08:52 | P.DS ---
Admission Date: 10/14/22 Discharge Date: 10/16/22 Disposition: ROUTINE DISCHARGE Discharge Condition: GOOD Reason for Admission: Generalized weakness. Consultations: Nephrology - Dr. Velasquez Brief History of Present Illness: 67 yo M, PMH: AAA, COPD, DM 2, gout, HLD, hypertension, ESRD Patient presents with complaint of generalized weakness that has been ongoing for the past 1 week. Patient reported associated signs and symptoms of poor appetite, shortness of breath with exertion, dysuria and dizziness. Patient denies any other signs and symptoms. Symptoms are aggravated or relieved by nothing. Patient is on peritoneal dialysis. Patient reported that he went for a follow-up appointment with his executive administrative asst and reported his symptoms to his kidney doctor who instructed him to go to the ER. Patient decided to present to the ER as directed. Hospital Course: Problem List: Urinary Hesitancy / LUTS, secondary to suspected BPH Generalized weakness Subclinical hypothyroidism ESRD NIDDM2 Hypertension Gout Hyperlipidemia GERD BPH COPD, stable AAA Anemia of chronic disease Patient presented with generalized weakness, urinary hesitancy. MRI brain reported chronic findings including a small remote left caudate head infarct, and presumed sequelae of chronic small vessel ischemic changes. During his hospitalization patient reported having worsening trouble urinating over last 2 weeks- describing urinary hesitancy. CT abdomen reported bladder distension. PVR were 151. Patient was started on finasteride and flomax and had improvement of his symptoms. Recommend patient to follow up with Urology for further studies / intervention regarding his urinary hesitancy. Patient noted to previously been on flomax, last prescription refilled ~November 2021. Will restart home Flomax once a day at bedtime. His thyroid labs were noted to be mildly abnormal. TSH was 8.3, and free T4: 0.81 (range 0.76 -1.46). Given his symptoms and borderline labs, patient is prescribed synthroid at 25mcg daily. He will follow up with his doctor and get repeat labs later this year. New Medications: Flomax once a day at bedtime. Synthroid 25 mcg Finasteride 5mg daily in the morning Follow up: PCP 3-5 days Nephrology in 1-2 weeks Urology in 1-2 weeks Incidentally: CT noted numerous liver cysts, similar to prior imaging. Numerous liver cysts noted on CT in 2019. Suspected secondary to known PCKD. Recommend followup with PCP. Monitoring of LFTs annually. CT abdomen: Stable chronic findings including bilateral polycystic kidneys, numerous liver cysts, and stable aorto bi-iliac aneurysmal dilation with stent grafts in place. Physical Exam: GEN: Alert, oriented, NAD HEENT: Normal conjunctiva, sclera anicteric CV: Regular rate and rhythm, no edema Pulm: Nonlabored respirations on room air ABD: Soft, nontender, nondistended, PD cath in place, no surrounding infectious signs Integumentary: No rashes Neuro: Normal speech, normal affect Vital Signs/Physical Exam: Temp Pulse Resp BP Pulse Ox 98.7 F 79 18 149/76 H 92 10/16/22 04:00 10/16/22 04:00 10/16/22 04:00 10/16/22 04:00 10/16/22 04:00 Laboratory Data at Discharge: WBC 9.30 thou/uL (4.3-10.9) 10/16/22 02:14 Hgb 11.9 g/dL (13.6-17.9) L 10/16/22 02:14 Hct 37.2 % (39.6-49.0) L 10/16/22 02:14 Plt Count 211 thou/uL (152-406) 10/16/22 02:14 Sodium 139 mEq/L (136-145) 10/16/22 02:14 Potassium 4.4 mEq/L (3.5-5.1) 10/16/22 02:14 BUN 47 mg/dL (7-18) H 10/16/22 02:14 Creatinine 7.11 mg/dL (0.70-1.30) H 10/16/22 02:14 Glucose 99 mg/dL (74-106) 10/16/22 02:14 Phosphorus 6.6 mg/dL (2.5-4.9) H 10/16/22 02:14 Magnesium 1.6 mg/dL (1.6-2.4) 10/16/22 02:14 Total Bilirubin 0.4 mg/dL (0.2-1.0) 10/16/22 02:14 AST 8 U/L (15-37) L 10/16/22 02:14 ALT 12 U/L (16-61) L 10/16/22 02:14 Alkaline Phosphatase 45 U/L (45-117) 10/16/22 02:14 Home Medications: Albuterol Sulfate [Proair Respiclick] 90 mcg IH PRN PRN 06/29/20 Aspirin [Aspirin EC 81 MG] 81 mg PO DAILY 06/29/20 Magnesium Oxide 400 mg PO DAILY 06/29/20 Allopurinol 100 mg PO DAILY 10/14/22 Calcitrol [Rocaltrol*] 0.5 mcg PO DAILY 10/14/22 Calcium Carbonate [Tums Regular*] 500 mg PO ACS 10/14/22 Cyclobenzaprine [Flexeril*] 10 mg PO DAILY 10/14/22 Furosemide 40 mg PO DAILY 10/14/22 Hydralazine HCl 25 mg PO BID 10/14/22 Pantoprazole [Protonix Tab*] 40 mg PO BID 10/14/22 Finasteride [Proscar*] 5 mg PO DAILY 90 Days #90 tab 10/16/22 Levothyroxine Sodium [Unithroid] 25 mcg PO DAILY 90 Days #90 tab 10/16/22 Tamsulosin [Flomax*] 0.4 mg PO DAILY 90 Days #90 cap 10/16/22 New Medications: Tamsulosin [Flomax*] 0.4 mg PO DAILY 90 Days #90 cap Finasteride [Proscar*] 5 mg PO DAILY 90 Days #90 tab Levothyroxine Sodium [Unithroid] 25 mcg PO DAILY 90 Days #90 tab Physician Discharge Instructions: Patient presented with generalized weakness, urinary hesitancy. MRI brain reported chronic findings including a small remote left caudate head infarct, and presumed sequelae of chronic small vessel ischemic changes. During his hospitalization patient reported having worsening trouble urinating over last 2 weeks- describing urinary hesitancy. CT abdomen reported bladder distension. PVR were 151. Patient was started on finasteride and flomax and had improvement of his symptoms. Recommend patient to follow up with Urology for further studies / intervention regarding his urinary hesitancy. Patient noted to previously been on flomax, last prescription refilled ~November 2021. Will restart home Flomax once a day at bedtime. His thyroid labs were noted to be mildly abnormal. TSH was 8.3, and free T4: 0.81 (range 0.76 -1.46). Given his symptoms and borderline labs, patient is prescribed synthroid at 25mcg daily. He will follow up with his doctor and get repeat labs later this year. New Medications: Flomax once a day at bedtime. Synthroid 25 mcg Finasteride 5mg daily in the morning Follow up: PCP 3-5 days Nephrology in 1-2 weeks Urology in 1-2 weeks Incidentally: CT noted numerous liver cysts, similar to prior imaging. Numerous liver cysts noted on CT in 2019. Suspected secondary to known PCKD. Recommend followup with PCP. Monitoring of LFTs annually. CT abdomen: Stable chronic findings including bilateral polycystic kidneys, numerous liver cysts, and stable aorto bi-iliac aneurysmal dilation with stent grafts in place. Followup: NONE,NONE [Primary Care Provider] - Time spent managing pt's care (in minutes): 45
[2022-10-16 08:57] VITALS: BP 141/81; TEMP 97.4
[2022-10-16] MEDS ORDERED: FINASTERIDE 5 MG TAB PO SCH (09:00)
[2022-10-16] MEDS: TAMSULOSIN 0.4 MG SR CAP PO SCH (09:15)
[2022-10-16] MEDS: ASPIRIN EC 81 MG TAB PO SCH (09:15)
[2022-10-16] MEDS: SEVELAMER CARBONATE 800 MG TABLET PO SCH (09:15)
[2022-10-16] MEDS: HEPARIN 5000 UNIT/ML 1 ML VIAL SQ SCH (09:16)
== END 2022-10-16 10:45 | disposition home or self-care (01) | DRG 698 ==
LOC: ER 10:45 → ERHOLD 14:36 → 2ND 17:06
PROVIDERS: ADMIT Hospitalist; ATTEND Hospitalist
DX: T82.41XA Breakdown (mechanical) of vascular dialysis catheter, initial encounter (principal); N18.6 End stage renal disease; E87.1 Hypo-osmolality and hyponatremia; Q61.3 Polycystic kidney, unspecified; I12.0 Hypertensive chronic kidney disease with stage 5 chronic kidney disease or end stage renal disease; N25.81 Secondary hyperparathyroidism of renal origin; E11.22 Type 2 diabetes mellitus with diabetic chronic kidney disease; D63.1 Anemia in chronic kidney disease; E78.00 Pure hypercholesterolemia, unspecified; I71.40 Abdominal aortic aneurysm, without rupture, unspecified; E03.8 Other specified hypothyroidism; E87.6 Hypokalemia; M10.9 Gout, unspecified; J44.9 Chronic obstructive pulmonary disease, unspecified; N40.1 Benign prostatic hyperplasia with lower urinary tract symptoms; R39.11 Hesitancy of micturition; R33.8 Other retention of urine; Z99.2 Dependence on renal dialysis; Z88.8 Allergy status to other drugs, medicaments and biological substances; Z79.82 Long term (current) use of aspirin; Z79.890 Hormone replacement therapy; Z79.899 Other long term (current) drug therapy; Z87.891 Personal history of nicotine dependence; Y84.8 Other medical procedures as the cause of abnormal reaction of the patient, or of later complication, without mention of misadventure at the time of the procedure
CPT/HCPCS: 36415; 70450; 70551; 71045; 74176; 80048; 80053; 80076; 81001; 82947; 83735; 84100; 84132; 84439; 84443; 84484; 85025; 87040; 93005; 96360; 97161; 99285; G0103; J1644; J3475; J7030

== ENCOUNTER 2023-02-12 17:14 | Emergency (ER) | payer OTHER ==
--- NOTE | 2023-02-12 19:48 | RAD REPORT ---
EXAM DESCRIPTION: Carlos Single View02/12/2023 7:34 pm CLINICAL HISTORY: cough COMPARISON: September 2022 FINDINGS: The lungs appear clear of acute infiltrate. The heart is normal size IMPRESSION: No acute abnormalities displayed
[2023-02-12] MEDS ORDERED: CEFTRIAXONE 1000 MG/VIAL ONE (19:57)
[2023-02-12] MEDS ORDERED: NA CHLORIDE 0.9% 500 ML ONE (19:57)
[2023-02-12 20:16] LABS: Absolute Lymphocytes (CBC) 2.1 K/uL (0.7-4.9); Hematocrit 39.6 % (39.6-49.0); Lymphocytes % 16.1 % (15.3-44.8); MCV 97.1 fL (80-100); MPV 7.7 fL (7.6-11.3); Platelets 292 thou/uL (152-406); RBC Red Blood Cell Count 4.08 M/uL (4.33-5.43)
[2023-02-12 20:20] LABS: Protime INR 1.04
[2023-02-12 20:25] LABS: Urine Bacteria None Seen /HPF (<20); Urine Bilirubin NEGATIVE (Negative); Urine Blood Trace (Negative); Urine Clarity Clear (Clear); Urine Color Light-Yellow (Yellow); Urine Glucose NEGATIVE (Negative); Urine Protein 1+ (Negative); Urine RBC <5 /HPF (None Seen); Urine Urobilinogen Normal (Normal)
[2023-02-12 20:40] LABS: Albumin 3.2 g/dL (3.4-5.0); Bilirubin Direct 0.1 mg/dL (0-0.2); Bilirubin Indirect, Calculated 0.2 mg/dL (0.2-0.8); Bilirubin Total 0.3 mg/dL (0.2-1.0); Magnesium 1.3 mg/dL (1.6-2.4); Potassium 4.1 mEq/L (3.5-5.1); Protein, Total 7.9 g/dL (6.4-8.2); Troponin High Sensitivity 28.4 pg/mL (<58.9)
--- NOTE | 2023-02-12 20:43 | ER ---
Nurse's Notes [facility] Name: Stan Jimenes Age: 67 yrs Sex: Male : 1955 Arrival Date: 02/12/2023 Time: 17:14 Bed 9 Private MD: Diagnosis: Weakness;Dependence on renal dialysis-Peritoneal;Hypomagnesemia Presentation: 02/12 17:50 Chief complaint: Patient states: Weakness, nausea, slight abdominal/back pain today. nj1 Had a nose bleed earlier today. Does peritoneal dialysis every night. Denies fever/vomiting/diarrhea. Coronavirus screen: Vaccine status: Patient reports receiving the 2nd dose of the covid vaccine. Ebola Screen: Patient denies travel to an Ebola-affected area in the 21 days before illness onset. Initial Sepsis Screen: Does the patient meet any 2 criteria? No. Patient's initial sepsis screen is negative. Does the patient have a suspected source of infection? No. Patient's initial sepsis screen is negative. Risk Assessment: Do you want to hurt yourself or someone else? Patient reports no desire to harm self or others. Onset of symptoms was February 12, 2023. 17:50 Method Of Arrival: Ambulatory [facility] 17:50 Acuity: CHAVA 3 [facility] Triage Assessment: 22:09 General: Appears in no apparent distress. Behavior is calm, cooperative. Pain: Denies as6 pain. Respiratory: Respiratory effort is even, unlabored. Historical: - Allergies: 17:53 Iodine; nj1 - PMHx: 17:53 AAA; Aneurysm; COPD; Gout; High Cholesterol; Hypertension; POLYCYSTIC KIDNEY DISEASE; nj1 Peritoneal dialysis (Unknown); - Immunization history:: Client reports receiving the 2nd dose of the Covid vaccine. - Social history:: Smoking status: Patient denies any tobacco usage or history of. - Family history:: not pertinent. Screenin:08 [facility] ED Fall Risk Assessment (Adult) Score/Fall Risk Level 0 - 2 = Low Risk. Abuse as6 screen: Denies threats or abuse. Denies injuries from another. Nutritional screening: No deficits noted. Tuberculosis screening: No symptoms or risk factors identified. Assessment: 21:23 Reassessment: Patient appears in no apparent distress at this time. Patient and/or jb4 family updated on plan of care and expected duration. Pain level reassessed. Patient is alert, oriented x 3, equal unlabored respirations, skin warm/dry/pink. Vital Signs: 17:50 BP 132 / 90; Pulse 96; Resp 18; Temp 98.6; Pulse Ox 100% ; Weight 104.78 kg; Height 6 nj1 ft. 2 in. ; Pain 2/10; 21:23 BP 143 / 95; Pulse 76; Resp 16; Pulse Ox 98% on R/A; jb4 22:08 BP 138 / 78; Pulse 72; Resp 18 S; Pulse Ox 99% on R/A; as6 17:50 Body Mass Index 29.66 (104.78 kg, 187.96 cm) nj1 17:50 Pain Scale: Adult [facility] ED Course: 17:17 Patient arrived in ED. im 17:53 Triage completed. nj1 17:54 Arm band placed on left wrist. nj1 18:03 Jimmie Holland MD is Attending Physician. mendez 19:36 XRAY Chest (1 view) In Process Unspecified. EDMS 19:59 Lactate w/ 2H reflex if indic. Sent. bc6 19:59 COVID-19/FLU A+B/RSV Sent. bc6 19:59 Lipase Sent. bc6 20:00 Basic Metabolic Panel Sent. bc6 20:00 CBC with Diff Sent. bc6 20:00 LFT's Sent. bc6 20:00 Magnesium Sent. bc6 20:00 NT PRO-BNP Sent. bc6 20:00 PT-INR Sent. bc6 20:00 Troponin HS Sent. bc6 20:00 Inserted saline lock: 20 gauge in right antecubital area, using aseptic technique. bc6 Blood collected. 20:42 Ned Velasquez MD is Referral Physician. mendez 22:09 Bed in low position. Call light in reach. Side rails up X 1. Provided Education on: as6 follow up. 22:09 No provider procedures requiring assistance completed. IV discontinued, intact, as6 bleeding controlled, No redness/swelling at site. Pressure dressing applied. Administered Medications: 18:07 CANCELLED (Duplicate Order): ns 0.9% 500 ml IV at bolus once mendez 20:25 Drug: Rocephin IV 1 grams IV at per protocol once; Given slow IV push per pharmacy jb4 instructions Route: IV; Rate: per protocol; Site: right antecubital; 22:07 Follow up: Response: No adverse reaction; IV Status: Completed infusion; IV Intake: [id number] 20:25 Drug: NS 0.9% IV 500 ml IV at bolus once Route: IV; Rate: bolus; Site: right jb4 antecubital; 22:07 Follow up: Response: No adverse reaction; IV Status: Completed infusion; IV Intake: as6 500ml 21:22 Drug: Magnesium Sulfate IVPB 1 grams IVPB once over 1 hrs Route: IVPB; Infused Over: 1 jb4 hrs; Site: right antecubital; 22:08 Follow up: Response: No adverse reaction; IV Status: Completed infusion; IV Intake: as6 100ml Medication: 22:09 VIS not applicable for this client. as6 Intake: 22:07 IV: 10ml; Total: 10ml. as6 22:07 IV: 500ml; Total: 510ml. as6 22:08 IV: 100ml; Total: 610ml. as6 Outcome: 20:42 Discharge ordered by MD. simms 22:09 Discharged to home ambulatory, with significant other, as6 22:09 Condition: stable 22:09 Discharge instructions given to patient, Instructed on discharge instructions, follow up and referral plans. Demonstrated understanding of instructions, follow-up care, 22:10 Patient left the ED. as6 Signatures: Dispatcher [employer] EDMS Jimmie Holland MD MD cha Bryson, James, RN RN jb4 Duc Weeks RN RN as6 Otilia Alfredo Norma, RN RN nj1 Aida Richey Corrections: (The following items were deleted from the chart) 17:54 17:53 PMHx: Diabetes - NIDDM; nj1 nj
--- NOTE | 2023-02-12 20:43 | EDPHYS ---
Physician Documentation [facility] Name: Stan Jimenes Age: 67 yrs Sex: Male : 1955 Arrival Date: 02/12/2023 Time: 17:14 Bed 9 Private MD: JENNIFER Physician Jimmie Holland HPI: 02/12 19:15 This 67 yrs old Male presents to ER via Ambulatory with complaints of General mendez Weakness. 19:15 WEAK, ON PD, NEEDS A CHARGE IE FLUIDS. Onset: The symptoms/episode began/occurred 2 mendez day(s) ago. The patient has experienced similar episodes in the past, several times. Historical: - Allergies: 17:53 Iodine; nj1 - PMHx: 17:53 AAA; Aneurysm; COPD; Gout; High Cholesterol; Hypertension; POLYCYSTIC KIDNEY DISEASE; nj1 Peritoneal dialysis (Unknown); - Immunization history:: Client reports receiving the 2nd dose of the Covid vaccine. - Social history:: Smoking status: Patient denies any tobacco usage or history of. - Family history:: not pertinent. ROS: 19:15 Constitutional: Negative for fever, chills, and weight loss, Eyes: Negative for injury, mendez pain, redness, and discharge, ENT: Negative for injury, pain, and discharge, Neck: Negative for injury, pain, and swelling, Cardiovascular: Negative for chest pain, palpitations, and edema, Respiratory: Negative for shortness of breath, cough, wheezing, and pleuritic chest pain, Abdomen/GI: Negative for abdominal pain, nausea, vomiting, diarrhea, and constipation, Back: Negative for injury and pain, : Negative for injury, bleeding, discharge, and swelling, MS/Extremity: Negative for injury and deformity, Skin: Negative for injury, rash, and discoloration, Psych: Negative for depression, anxiety, suicide ideation, homicidal ideation, and hallucinations, Allergy/Immunology: Negative for hives, rash, and allergies, Endocrine: Negative for neck swelling, polydipsia, polyuria, polyphagia, and marked weight changes, 19:15 Neuro: Positive for weakness, Exam: 19:15 Constitutional: This is a well developed, well nourished patient who is awake, alert, mendez and in no acute distress. Head/Face: Normocephalic, atraumatic. Eyes: Pupils equal round and reactive to light, extra-ocular motions intact. Lids and lashes normal. Conjunctiva and sclera are non-icteric and not injected. Cornea within normal limits. Periorbital areas with no swelling, redness, or edema. ENT: Nares patent. No nasal discharge, no septal abnormalities noted. Tympanic membranes are normal and external auditory canals are clear. Oropharynx with no redness, swelling, or masses, exudates, or evidence of obstruction, uvula midline. Mucous membranes moist. Neck: Trachea midline, no thyromegaly or masses palpated, and no cervical lymphadenopathy. Supple, full range of motion without nuchal rigidity, or vertebral point tenderness. No Meningismus. Chest/axilla: Normal chest wall appearance and motion. Nontender with no deformity. No lesions are appreciated. Cardiovascular: Regular rate and rhythm with a normal S1 and S2. No gallops, murmurs, or rubs. Normal PMI, no JVD. No pulse deficits. Respiratory: Lungs have equal breath sounds bilaterally, clear to auscultation and percussion. No rales, rhonchi or wheezes noted. No increased work of breathing, no retractions or nasal flaring. Abdomen/GI: Soft, non-tender, with normal bowel sounds. No distension or tympany. No guarding or rebound. No evidence of tenderness throughout. Back: No spinal tenderness. No costovertebral tenderness. Full range of motion. Male : Normal genitalia with no discharge or lesions. Skin: Warm, dry with normal turgor. Normal color with no rashes, no lesions, and no evidence of cellulitis. MS/ Extremity: Pulses equal, no cyanosis. Neurovascular intact. Full, normal range of motion. Neuro: Awake and alert, GCS 15, oriented to person, place, time, and situation. Cranial nerves II-XII grossly intact. Motor strength 5/5 in all extremities. Sensory grossly intact. Cerebellar exam normal. Normal gait. Psych: Awake, alert, with orientation to person, place and time. Behavior, mood, and affect are within normal limits. 20:13 ECG was reviewed by the Attending Physician. [facility] Vital Signs: 17:50 BP 132 / 90; Pulse 96; Resp 18; Temp 98.6; Pulse Ox 100% ; Weight 104.78 kg; Height 6 nj1 ft. 2 in. ; Pain 2/10; 21:23 BP 143 / 95; Pulse 76; Resp 16; Pulse Ox 98% on R/A; jb4 22:08 BP 138 / 78; Pulse 72; Resp 18 S; Pulse Ox 99% on R/A; as6 17:50 Body Mass Index 29.66 (104.78 kg, 187.96 cm) nj1 17:50 Pain Scale: Adult nj1 MDM: 18:03 Patient medically screened. [facility] 19:18 Differential Diagnosis sepsis, flu. Data reviewed: vital signs, nurses notes, lab test [facility] result(s), EKG, radiologic studies, plain films. Consideration of Admission/Observation Escalation of care including admission/observation considered. I considered the following discharge prescriptions or medication management in the emergency department Medications were administered in the Emergency Department. See MAR. Test considered but Not performed: Ultrasound NO ABD USG. Care significantly affected by the following chronic conditions: Hypertension, Chronic Obstructive Pulmonary Disease, Obesity, AAA, GOUT, PCKD, HIGH CHOLESTEROL. 02/12 18:06 Order name: Basic Metabolic Panel; Complete Time: 20:41 [facility] 02/12 18:06 Order name: CBC with Diff; Complete Time: 20:38 [facility] 02/12 18:06 Order name: LFT's; Complete Time: 20:41 [facility] 02/12 18:06 Order name: Magnesium; Complete Time: 20:41 [facility] 02/12 18:06 Order name: NT PRO-BNP; Complete Time: 20:41 [facility] 02/12 18:06 Order name: PT-INR; Complete Time: 20:38 [facility] 02/12 18:06 Order name: Troponin HS; Complete Time: 20:41 [facility] 02/12 18:06 Order name: Lipase; Complete Time: 20:41 [facility] 02/12 18:06 Order name: Urinalysis w/ reflexes; Complete Time: 20:38 [facility] 02/12 18:06 Order name: COVID-19/FLU A+B/RSV; Complete Time: 20:56 [facility] 02/12 18:06 Order name: Blood Culture Adult (2) [facility] 02/12 18:06 Order name: Lactate w/ 2H reflex if indic.; Complete Time: 20:38 [facility] 02/12 18:06 Order name: XRAY Chest (1 view); Complete Time: 20:38 [facility] 02/12 18:06 Order name: EKG; Complete Time: 18:07 [facility] 02/12 18:06 Order name: Cardiac monitoring; Complete Time: 20:14 mendez 02/12 18:06 Order name: EKG - Nurse/Tech; Complete Time: 20:14 mendez 02/12 18:06 Order name: IV Saline Lock; Complete Time: 19:59 mendez 02/12 18:06 Order name: Labs collected and sent; Complete Time: 19:59 mendez 02/12 18:06 Order name: O2 Per Protocol; Complete Time: 20:14 mendez 02/12 18:06 Order name: O2 Sat Monitoring; Complete Time: 20:14 mendez EC:13 Rate is 76 beats/min. Rhythm is regular. QRS [place] is Normal. ND interval is prolonged mendez at 226 msec. QT interval is normal. No Q waves. T waves are Normal. No ST changes noted. Clinical impression: NSR w/ Non-specific ST/T Changes, 1st degree heart block, and No evidence of ischemia. Interpreted by me. Reviewed by me. Administered Medications: 18:07 CANCELLED (Duplicate Order): ns 0.9% 500 ml IV at bolus once mendez 20:25 Drug: Rocephin IV 1 grams IV at per protocol once; Given slow IV push per pharmacy jb4 instructions Route: IV; Rate: per protocol; Site: right antecubital; 22:07 Follow up: Response: No adverse reaction; IV Status: Completed infusion; IV Intake: [id number] 20:25 Drug: NS 0.9% IV 500 ml IV at bolus once Route: IV; Rate: bolus; Site: right 4 antecubital; 22:07 Follow up: Response: No adverse reaction; IV Status: Completed infusion; IV Intake: as6 500ml 21:22 Drug: Magnesium Sulfate IVPB 1 grams IVPB once over 1 hrs Route: IVPB; Infused Over: 1 jb4 hrs; Site: right antecubital; 22:08 Follow up: Response: No adverse reaction; IV Status: Completed infusion; IV Intake: as6 100ml Disposition Summary: 02/12/23 20:42 Discharge Ordered Notes: Location: Home mendez Problem: new mendez Symptoms: have improved mendez Condition: Stable mendez Diagnosis - Weakness mendez - Dependence on renal dialysis - Peritoneal mendez - Hypomagnesemia mendez Followup: mendez - With: Private Physician - When: 1 - 2 days - Reason: Recheck today's complaints, Continuance of care, Re-evaluation by your physician Followup: mendez - With: Ned Velasquez MD - When: 2 - 3 days - Reason: Recheck today's complaints, Re-evaluation by your physician Discharge Instructions: - Discharge Summary Sheet mendez - Hypomagnesemia mendez - Weakness mendez - Fatigue mendez - Dialysis mendez - Peritoneal Dialysis Information, [id number] mendez - Weakness, [id number] mendez - Peritoneal Dialysis Information mendez - Deconditioning mendez Forms: - Medication Reconciliation Form mendez - Thank You Letter mendez - Antibiotic Education mendez - Prescription Opioid Use mendez - Patient Portal Instructions mendez - Leadership Thank You Letter mendez Signatures: Dispatcher [employer] EDJimmie Chand MD MD cha Bryson, James RN RN jb4 Amy Tabor RN RN nj1 Duc Weeks RN as6 Corrections: (The following items were deleted from the chart) 17:54 17:53 PMHx: Diabetes - NIDDM; nj1 nj1 18:07 18:06 NS 0.9% IV 500 ml IV at bolus once ordered. mendez mendez
[2023-02-12 20:49] LABS: SARS-COV-2 RT PCR NEGATIVE (NEGATIVE)
[2023-02-12] MEDS ORDERED: MAGNESIUM SULFATE 1 gm IVPB 1 GM/100 ML BAG IV ONE (21:19)
[2023-02-12 23:17] VITALS: TEMP 98.6
[2023-02-12 23:29] VITALS: BP 138/78; O2SAT 99
--- NOTE | 2023-02-13 15:20 | EKG ---
Test Date: 2023-02-12 Test Time: 20:07:29 Assistant Operator: TRUONG MEASUREMENT RESULTS: Intervals: Rate: 76 OK: 226 QRSD: 78 QT: 376 QTc: 423 [place]: P: 93 OK: 226 QRS: 6 T: 63 INTERPRETIVE STATEMENTS: Sinus rhythm with 1st degree AV block Cannot rule out Anterior infarct, age undetermined Abnormal ECG Compared to ECG 10/14/2022 11:48:36 First degree AV block now present Ventricular premature complex(es) no longer present Myocardial infarct finding still present Electronically Signed On 02-13-23 15:19:27 FOUNTAIN ATTENDANT by Eliu Shanks
== END 2023-02-12 22:10 | disposition home or self-care (01) ==
LOC: ER 17:14
DX: R53.1 Weakness (principal); E83.42 Hypomagnesemia; Z99.2 Dependence on renal dialysis; J44.9 Chronic obstructive pulmonary disease, unspecified; Z11.52 Encounter for screening for COVID-19; Z91.048 Other nonmedicinal substance allergy status
CPT/HCPCS: 96365; 93005; 87040 ×2; 85025; 81001; 80048; 36415; 83735; 85610; 80076; 83605; 84484; 83690; 83880; 0241U; 71045; 99284; J3475; J7040; J0696

== ENCOUNTER → 2023-02-23 | Emergency (ER) | payer OTHER ==
[~2023-02-23] MED LIST: FENTANYL CITR 100 MCG/2 ML ONE; MORPHINE 4 MG/ML SYR ONE
[2023-02-23 14:30] LABS: Specific Gravity 1.012 (1.005-1.030); Urine Bacteria None Seen /HPF (<20); Urine Bilirubin NEGATIVE (Negative); Urine Blood 1+ (Negative); Urine Clarity Clear (Clear); Urine Color Light-Yellow (Yellow); Urine Glucose TRACE (Negative); Urine Protein 2+ (Negative); Urine Urobilinogen Normal (Normal); Urine pH 7.5 (5.0-7.0)
--- NOTE | 2023-02-23 15:04 | RAD REPORT ---
EXAM DESCRIPTION: CT - Abdomen Pelvis Wo Contrast - 02/23/2023 2:00 pm CLINICAL HISTORY: Abd pain;Flank pain COMPARISON: Abdomen Pelvis Wo Contrast dated 10/14/2022; Abdomen Pelvis Wo Contrast dated 09/12/19 23; Stone Protocol dated 05/20/2022; Abdomen Pelvis Wo Contrast dated 12/25/2021 TECHNIQUE: Thin cut axial CT imaging of the abdomen and pelvis was performed without IV contrast. Mu ltiplanar reformats were generated and reviewed. All CT scans are performed using dose optimization technique as appropriate and may include automated exposure control or mA/KV adjustment according to patient size. FINDINGS: No suspicious findings in the lung bases. Stable low-density subpleural right lower lobe 1 .4 cm nodule. The adrenal glands, spleen, and pancreas show no suspicious findings. Liver and kidneys again demonst rate multiple cysts. Gallbladder and biliary tree are also without suspicious finding. No evidence of radiopaque renal calculi. Mild caliber prominence of the left ureter, without obstruct ing calculi. No dilated bowel loops or bowel wall thickening. Dialysis in place with small volume free pelvic flui d. Colonic diverticulosis No free air, fluid collection, or inflammatory stranding. No hernia, mass o r bulky lymphadenopathy. The urinary bladder is decompressed, without significant finding. Stable fusiform Aneurysmal dilation of the abdominal aorta, with aortobiiliac stent grafts in place. No suspicious bony findings. IMPRESSION: Mild caliber prominence of the left ureter, without obstructing calculi. This is nonspe cific, but could relate to a recently passed calculus. No other acute intra-abdominal process.
[2023-02-23 15:14] LABS: Absolute Lymphocytes (CBC) 1.4 K/uL (0.7-4.9); Hematocrit 36.8 % (39.6-49.0); Lymphocytes % 15.3 % (15.3-44.8); MCV 97.4 fL (80-100); MPV 8.3 fL (7.6-11.3); Platelets 258 thou/uL (152-406); RBC Red Blood Cell Count 3.78 M/uL (4.33-5.43)
[2023-02-23 15:27] LABS: Albumin 2.9 g/dL (3.4-5.0); Bilirubin Total 0.3 mg/dL (0.2-1.0); Potassium 4.1 mEq/L (3.5-5.1); Protein, Total 7.5 g/dL (6.4-8.2)
--- NOTE | 2023-02-23 16:55 | ER ---
Nurse's Notes [facility] Name: Stan Jimenes Age: 67 yrs Sex: Male : 1955 Arrival Date: 02/23/2023 Time: 13:16 Bed DIS2 Private MD: Diagnosis: Low back pain-Left flank pain Presentation: 02/23 13:25 Chief complaint: Patient states: LLQ PAIN RADIATING TO LEFT FLANK. Coronavirus screen: bp At this time, the client does not indicate any symptoms associated with coronavirus-19. Ebola Screen: No symptoms or risks identified at this time. Initial Sepsis Screen: Does the patient meet any 2 criteria? No. Patient's initial sepsis screen is negative. Does the patient have a suspected source of infection? No. Patient's initial sepsis screen is negative. Risk Assessment: Do you want to hurt yourself or someone else? Patient reports no desire to harm self or others. Note SCHEDULED FOR RENAL TRANSPLANT 03/27. Onset of symptoms is unknown. 13:25 Method Of Arrival: Ambulatory bp 13:25 Acuity: CHAVA 3 bp Triage Assessment: 13:26 General: Appears uncomfortable, Behavior is calm, cooperative, appropriate for age. bp Pain: Complains of pain in left lower quadrant. GI: Reports lower abdominal pain. : Reports urinary frequency. Historical: - Allergies: 13:26 Iodine; bp - PMHx: 13:26 AAA; Aneurysm; COPD; Gout; High Cholesterol; Hypertension; PERITONEAL DIALYSIS bp (Unknown); POLYCYSTIC KIDNEY DISEASE; - Immunization history:: Adult Immunizations up to date. - Social history:: Smoking status: Patient denies any tobacco usage or history of. - History obtained from: . Assessment: 14:15 Reassessment: No changes from previously documented assessment. Patient and/or family ll1 updated on plan of care and expected duration. Pain level reassessed. 16:00 Reassessment: No changes from previously documented assessment. Patient and/or family ll1 updated on plan of care and expected duration. Pain level reassessed. Patient is alert, oriented x 3, equal unlabored respirations, skin warm/dry/pink. Vital Signs: 13:25 BP 160 / 87; Pulse 83; Resp 16; Temp 98; Pulse Ox 100% ; Weight 104.78 kg; Height 6 ft. bp 2 in. ; 13:25 Body Mass Index 29.66 (104.78 kg, 187.96 cm) bp ED Course: 13:19 Patient arrived in ED. rg4 13:22 Skylar Faust FNP-C is [facility]. snw 13:22 José Miguel Garcia MD is Attending Physician. snw 13:25 Attending Physician role handed off by José Miguel Garcia MD ci 13:25 Mary Lou Phillip is Attending Physician. ci 13:26 Triage completed. bp 13:26 Arm band placed on. bp 14:00 CT Abd/Pelvis - Without Contrast In Process Unspecified. EDMS 14:16 Inserted saline lock: 22 gauge in right antecubital area, using aseptic technique. ll1 Blood collected. 14:21 Urinalysis w/ reflexes Sent. ll1 17:06 No provider procedures requiring assistance completed. IV discontinued, intact, ll1 bleeding controlled, No redness/swelling at site. Pressure dressing applied. Administered Medications: 14:21 Drug: morphine IVP or IV 4 mg IVP once over 4 mins Route: IVP; Infused Over: 4 mins; ll1 Site: right antecubital; 16:18 Follow up: Response: No adverse reaction; Pain is unchanged, physician notified; RASS: ll1 Alert and Calm (0) 16:30 Drug: fentaNYL (PF) IVP 75 mcg IVP once Route: IVP; Site: right antecubital; ll1 17:07 Follow up: Response: No adverse reaction; Pain is decreased; RASS: Alert and Calm (0) ll1 Outcome: 16:55 Discharge ordered by . ci 17:07 Discharged to home ambulatory, ll1 17:07 Condition: stable 17:07 Discharge instructions given to patient, family, Instructed on discharge instructions, follow up and referral plans. medication usage, Demonstrated understanding of instructions, follow-up care, medications, Prescriptions given X 1, 17:07 Patient left the ED. ll1 Signatures: Dispatcher [employer] EDNE Skylar Faust FNP-C FNP-Ella Albert rg4 Nestor Bernal, RN RN Марина Avila RN RN ll1 Mary Lou Phillip ci Corrections: (The following items were deleted from the chart) 13: 13:26 PMHx: "Dialysis for the stomach, not the blood"; bp bp 16:41 16:41 fentaNYL (PF) IVP 75 mcg IVP in right antecubital ll1 ll1
--- NOTE | 2023-02-23 16:56 | EDPHYS ---
Physician Documentation [facility] Name: Stan Jimenes Age: 67 yrs Sex: Male : 1955 Arrival Date: 02/23/2023 Time: 13:16 Bed DIS2 Private MD: ED Physician Mary Lou Phillip HPI: 02/23 13:48 This 67 yrs old Male presents to ER via Ambulatory with complaints of Abdominal Pain, ci Back Pain. 13:48 Patient is a 67-year-old male with PMH gout, COPD, AAA, hypertension, ESRD on ci peritoneal dialysis who presents to the ED with suprapubic pain that began around 4 AM. Pain is sharp, radiates into the left flank, no aggravating or relieving factors. Patient does make urine, reports difficulty urinating and concerned about possible infection. Denies fever, chills. No history of kidney stones. Patient is scheduled to get renal transplant March 27 at [facility]. Last dialysis was completed this morning.. Historical: - Allergies: 13:26 Iodine; bp - PMHx: 13:26 AAA; Aneurysm; COPD; Gout; High Cholesterol; Hypertension; PERITONEAL DIALYSIS bp (Unknown); POLYCYSTIC KIDNEY DISEASE; - Immunization history:: Adult Immunizations up to date. - Social history:: Smoking status: Patient denies any tobacco usage or history of. - History obtained from: . ROS: 13:48 Constitutional: Negative for fever, chills, and weight loss, ci 13:48 Abdomen/GI: Positive for abdominal pain, 13:48 Abdomen/GI: Negative for nausea, vomiting, and diarrhea, 13:48 Back: Positive for flank pain, Exam: 13:48 Constitutional: This is a well developed, well nourished patient who is awake, alert, ci and in no acute distress. Head/Face: Normocephalic, atraumatic. Eyes: Pupils equal round and reactive to light, extra-ocular motions intact. Lids and lashes normal. Conjunctiva and sclera are non-icteric and not injected. Cornea within normal limits. Periorbital areas with no swelling, redness, or edema. ENT: Nares patent. No nasal discharge, no septal abnormalities noted. Tympanic membranes are normal and external auditory canals are clear. Oropharynx with no redness, swelling, or masses, exudates, or evidence of obstruction, uvula midline. Mucous membranes moist. Neck: Trachea midline, no thyromegaly or masses palpated, and no cervical lymphadenopathy. Supple, full range of motion without nuchal rigidity, or vertebral point tenderness. No Meningismus. Chest/axilla: Normal chest wall appearance and motion. Nontender with no deformity. No lesions are appreciated. Cardiovascular: Regular rate and rhythm with a normal S1 and S2. No gallops, murmurs, or rubs. Normal PMI, no JVD. No pulse deficits. Respiratory: Lungs have equal breath sounds bilaterally, clear to auscultation and percussion. No rales, rhonchi or wheezes noted. No increased work of breathing, no retractions or nasal flaring. Abdomen/GI: Soft, non-tender, with normal bowel sounds. No distension or tympany. No guarding or rebound. No evidence of tenderness throughout. Peritoneal dialysis catheter site clean and dry. Mild suprapubic tenderness to palpation. Positive left CVA tenderness. Back is atraumatic, no C/T/L bony midline tenderness, no step-offs or deformity. Back: No spinal tenderness. No costovertebral tenderness. Full range of motion. Skin: Warm, dry with normal turgor. Normal color with no rashes, no lesions, and no evidence of cellulitis. MS/ Extremity: Pulses equal, no cyanosis. Neurovascular intact. Full, normal range of motion. Neuro: Awake and alert, GCS 15, oriented to person, place, time, and situation. Cranial nerves II-XII grossly intact. Motor strength 5/5 in all extremities. Sensory grossly intact. Cerebellar exam normal. Normal gait. Psych: Awake, alert, with orientation to person, place and time. Behavior, mood, and affect are within normal limits. Vital Signs: 13:25 BP 160 / 87; Pulse 83; Resp 16; Temp 98; Pulse Ox 100% ; Weight 104.78 kg; Height 6 ft. bp 2 in. ; 13:25 Body Mass Index 29.66 (104.78 kg, 187.96 cm) bp MDM: 13:41 Patient medically screened. ci 13:48 Differential diagnosis: Abdominal Aortic Aneurysm Hydronephrosis Pyelonephritis Renal ci Infarction Ureterolithiasis YTI. Care significantly affected by the following chronic conditions: Hypertension, Chronic Obstructive Pulmonary Disease. 16:05 Awaiting: labs results. ci 16:50 Data reviewed: vital signs, nurses notes, lab test result(s), radiologic studies, CT ci scan. Historians other than the Patient: Spouse/Significant Other: . Counseling: I had a detailed discussion with the patient and/or guardian regarding the historical points, exam findings, and any diagnostic results supporting the discharge/admit diagnosis, lab results, the need for outpatient follow up, to return to the emergency department if symptoms worsen or persist or if there are any questions or concerns that arise at home. Medication response: morphine partially relieved the patient's pain. Response to treatment: the patient's symptoms have mildly improved after treatment. ED course: Patient presents for evaluation of suprapubic and left flank pain. He is nontoxic-appearing, vital signs stable. DDx considered include nephrolithiasis, pyelonephritis, muscle strain. Imaging shows a stable fusiform aneurysmal dilation, low suspicion for ruptured AAA, no hypotension, no pulsatile mass. Denies bowel/bladder dysfunction, denies paresthesia, denies saddle anesthesia, denies fever, IVDU, low suspicion for cauda equina. Denies midline back pain. Labs consistent with ESRD, creatinine 8.1. CT shows mild dilation of ureter, suspicious for recently passed stone. Patient was given morphine and fentanyl for his pain with some improvement. Stable for discharge with close outpatient follow-up.. 02/23 13:48 Order name: CBC with Diff; Complete Time: 16:13 ci 02/23 16:13 Interpretation: HGB 12.1. ci 02/23 13:48 Order name: CMP; Complete Time: 16:04 ci 02/23 16:04 Interpretation: Abnormal: CRE 8.10. ci 02/23 13:48 Order name: Lipase; Complete Time: 16:04 ci 02/23 13:48 Order name: Urinalysis w/ reflexes; Complete Time: 16:04 ci 02/23 13:48 Order name: CT Abd/Pelvis - Without Contrast; Complete Time: 16:04 ci 02/23 16:05 Interpretation: Per Radiologist's finding(s): IMPRESSION: Mild caliber prominence of ci the left ureter, without obstructing calculi. This is nonspecific, but could relate to a recently passed calculus. No other acute intra-abdominal process. 02/23 13:48 Order name: IV Saline Lock; Complete Time: 14:15 ci 02/23 13:48 Order name: Labs collected and sent; Complete Time: 14:15 ci Administered Medications: 14:21 Drug: morphine IVP or IV 4 mg IVP once over 4 mins Route: IVP; Infused Over: 4 mins; ll1 Site: right antecubital; 16:18 Follow up: Response: No adverse reaction; Pain is unchanged, physician notified; RASS: ll1 Alert and Calm (0) 16:30 Drug: fentaNYL (PF) IVP 75 mcg IVP once Route: IVP; Site: right antecubital; ll1 17:07 Follow up: Response: No adverse reaction; Pain is decreased; RASS: Alert and Calm (0) ll1 Disposition Summary: 02/23/23 16:55 Discharge Ordered Notes: Location: Home ci Condition: Stable ci Diagnosis - Low back pain - Left flank pain ci Followup: ci - With: Private Physician - When: 1 - 2 days - Reason: Recheck today's complaints, Re-evaluation by your physician Discharge Instructions: - Discharge Summary Sheet ci - Acute Back Pain, Adult ci Forms: - Medication Reconciliation Form ci - Thank You Letter ci - Antibiotic Education ci - Prescription Opioid Use ci - Patient Portal Instructions ci - Leadership Thank You Letter ci Prescriptions: - Cyclobenzaprine 10 mg Oral tablet - take 1 tablet ORAL route every 8 hours As needed; 15 tablet; Refills: 0, ci Product Selection Permitted Signatures: Dispatcher [employer] EDMS Nestor Bernal RN RN Марина Avila RN RN 1 Mary Lou Phillip ci Corrections: (The following items were deleted from the chart) 13:26 13:26 PMHx: "Dialysis for the stomach, not the blood"; bp bp 16:58 16:50 ED course: Patient presents for evaluation of suprapubic and left flank pain. He ci is nontoxic-appearing, vital signs stable. DDx considered include nephrolithiasis, pyelonephritis, muscle strain. Labs consistent with ESRD, creatinine 8.1. CT shows mild dilation of ureter, suspicious for recently passed stone. Patient was given morphine and fentanyl for his pain with some improvement. Stable for discharge with close outpatient follow-up.. ci 17:00 16:50 ED course: Patient presents for evaluation of suprapubic and left flank pain. He ci is nontoxic-appearing, vital signs stable. DDx considered include nephrolithiasis, pyelonephritis, muscle strain. Imaging shows a stable fusiform aneurysmal dilation, low suspicion for ruptured AAA, no hypotension, no pulsatile mass. Labs consistent with ESRD, creatinine 8.1. CT shows mild dilation of ureter, suspicious for recently passed stone. Patient was given morphine and fentanyl for his pain with some improvement. Stable for discharge with close outpatient follow-up.. ci
[2023-02-23 17:43] VITALS: BP 160/87; TEMP 98; O2SAT 100
== END ==
LOC: ER 13:16
DX: M54.50 Low back pain, unspecified (principal); R10.32 Left lower quadrant pain; I12.0 Hypertensive chronic kidney disease with stage 5 chronic kidney disease or end stage renal disease; N18.6 End stage renal disease; Z99.2 Dependence on renal dialysis; Z91.048 Other nonmedicinal substance allergy status
CPT/HCPCS: 85025; 81001; 36415; 83690; 80053; 74176; 96375; 96374; 99284; J3010

== ENCOUNTER → 2023-05-27 | Emergency (ER) | payer OTHER ==
[~2023-05-27] MED LIST changes: +CEFTRIAXONE 1000 MG/VIAL ONE; -FENTANYL CITR 100 MCG/2 ML ONE; +Levofloxacin500mg IV 500 MG/100 ML BAG IV ONE; +NA CHLORIDE 0.9% 1,000 ML ONE; +ONDANSETRON 4 MG/2 ML VIAL ONE
--- NOTE | 2023-05-27 17:28 | RAD REPORT ---
EXAM DESCRIPTION: CT - Abdomen Pelvis Wo Contrast - 05/27/2023 5:14 pm CLINICAL HISTORY: Abdominal pain COMPARISON: 2022 and 2020 TECHNIQUE: Computed axial tomography of the abdomen and pelvis was obtained. IV and oral contrast we re not requested. All CT scans are performed using dose optimization technique as appropriate and may include automated exposure control or mA/KV adjustment according to patient size. FINDINGS: The evaluation of solid organs, vessels and bowel is limited secondary to the lack of con trast administration. 15 millimeter right lower lobe nodule containing fat unchanged from 2020 is benign Stable hepatic cysts Spleen, pancreas and adrenals grossly normal Polycystic kidneys containing simple and complex cysts. No evidence of an acute significant hemorrhag e within a cyst. No hydronephrosis. Little normal appearing renal parenchyma. The appendix is normal. There is no evidence of diverticulitis. A stent has been placed into the the aorta and iliac arteries. No retroperitoneal hematoma. Peritonea l catheter with its tip in the pelvis. IMPRESSION: Polycystic kidney disease No acute abnormality displayed
--- NOTE | 2023-05-27 17:29 | RAD REPORT ---
EXAM DESCRIPTION: Carlos Single View05/27/2023 5:15 pm CLINICAL HISTORY: Abdominal pain COMPARISON: 2022 FINDINGS: The lungs appear clear of acute infiltrate. The heart is normal size IMPRESSION: No acute abnormalities displayed
[2023-05-27 18:00] LABS: Absolute Basophils 0.1 K/uL (0-0.5); Absolute Eosinophils 0.2 K/uL (0-0.5); Absolute Lymphocytes (CBC) 1.4 K/uL (0.7-4.9); Absolute Monocytes 1.4 K/uL (0.1-1.3); Absolute Neutrophil 11.3 K/uL (1.8-8.0); Basophils % 0.4 % (0-1.3); Eosinophils % 1.5 % (0-4.4); Hematocrit 34.5 % (39.6-49.0); Hemoglobin 11.2 g/dL (13.6-17.9); Lymphocytes % 9.6 % (15.3-44.8); MCH 31.3 pg (27.0-35.0); MCHC 32.6 g/dL (32.0-36.0); MPV 7.6 fL (7.6-11.3); Monocytes % 9.8 % (3.3-12.3); Neutrophils % 78.7 % (41.7-73.7); Platelets 204 thou/uL (152-406); RBC Red Blood Cell Count 3.59 M/uL (4.33-5.43); Red Cell Distribution Width 15.9 % (12.1-15.2)
[2023-05-27 18:01] LABS: Specific Gravity 1.009 (1.005-1.030); Sqamous Epithelial None Seen /HPF (None Seen); Urine Bacteria <20 /HPF (<20); Urine Bilirubin NEGATIVE (Negative); Urine Blood Trace (Negative); Urine Clarity Clear (Clear); Urine Color Colorless (Yellow); Urine Glucose TRACE (Negative); Urine Ketones NEGATIVE (Negative); Urine Microscopic Reflex YN ORDER UMIC; Urine Nitrite NEGATIVE (Negative); Urine Protein 1+ (Negative); Urine RBC <5 /HPF (None Seen); Urine Urobilinogen Normal (Normal); Urine WBC <5 /HPF (<5)
[2023-05-27 18:11] LABS: Protime INR 1.09
--- NOTE | 2023-05-27 18:22 | EDPHYS ---
Physician Documentation [facility] Name: Stan Jimenes Age: 68 yrs Sex: Male : 1955 Arrival Date: 05/27/2023 Time: 16:25 Bed 8 Private MD: ED Physician Jimmie Holland HPI: 05/26 17:13 This 68 yrs old Male presents to ER via Ambulatory with complaints of mendez Possible UTI. 17:13 The patient presents with abdominal pain in the upper abdomen, in the lower abdomen. mendez Onset: The symptoms/episode began/occurred 2 day(s) ago. The symptoms do not radiate. Associated signs and symptoms: none. The symptoms are described as crampy, steady. Modifying factors: The symptoms are alleviated by remaining still, the symptoms are aggravated by movement. Severity of pain: At its worst the pain was moderate this morning, today. The patient has not experienced similar symptoms in the past. Historical: - Allergies: 16:37 Iodine; hb - PMHx: 16:37 AAA; Aneurysm; COPD; Gout; High Cholesterol; Hypertension; PERITONEAL DIALYSIS hb (Unknown); POLYCYSTIC KIDNEY DISEASE; - Immunization history:: Adult Immunizations up to date. - Social history:: Smoking status: Patient denies any tobacco usage or history of. - Family history:: not pertinent. ROS: 17:13 Constitutional: Negative for fever, chills, and weight loss, Eyes: Negative for injury, mendez pain, redness, and discharge, ENT: Negative for injury, pain, and discharge, Neck: Negative for injury, pain, and swelling, Cardiovascular: Negative for chest pain, palpitations, and edema, Respiratory: Negative for shortness of breath, cough, wheezing, and pleuritic chest pain, Back: Negative for injury and pain, : Negative for injury, bleeding, discharge, and swelling, MS/Extremity: Negative for injury and deformity, Skin: Negative for injury, rash, and discoloration, Neuro: Negative for headache, weakness, numbness, tingling, and seizure, Psych: Negative for depression, anxiety, suicide ideation, homicidal ideation, and hallucinations, Allergy/Immunology: Negative for hives, rash, and allergies, Endocrine: Negative for neck swelling, polydipsia, polyuria, polyphagia, and marked weight changes, Hematologic/Lymphatic: Negative for swollen nodes, abnormal bleeding, and unusual bruising, 17:13 Abdomen/GI: Positive for abdominal pain, of the right upper quadrant, left upper quadrant, right lower quadrant and left lower quadrant, Exam: 17:13 Constitutional: This is a well developed, well nourished patient who is awake, alert, mendez and in no acute distress. Head/Face: Normocephalic, atraumatic. Eyes: Pupils equal round and reactive to light, extra-ocular motions intact. Lids and lashes normal. Conjunctiva and sclera are non-icteric and not injected. Cornea within normal limits. Periorbital areas with no swelling, redness, or edema. ENT: Nares patent. No nasal discharge, no septal abnormalities noted. Tympanic membranes are normal and external auditory canals are clear. Oropharynx with no redness, swelling, or masses, exudates, or evidence of obstruction, uvula midline. Mucous membranes moist. Neck: Trachea midline, no thyromegaly or masses palpated, and no cervical lymphadenopathy. Supple, full range of motion without nuchal rigidity, or vertebral point tenderness. No Meningismus. Chest/axilla: Normal chest wall appearance and motion. Nontender with no deformity. No lesions are appreciated. Cardiovascular: Regular rate and rhythm with a normal S1 and S2. No gallops, murmurs, or rubs. Normal PMI, no JVD. No pulse deficits. Respiratory: Lungs have equal breath sounds bilaterally, clear to auscultation and percussion. No rales, rhonchi or wheezes noted. No increased work of breathing, no retractions or nasal flaring. Back: No spinal tenderness. No costovertebral tenderness. Full range of motion. Male : Normal genitalia with no discharge or lesions. Skin: Warm, dry with normal turgor. Normal color with no rashes, no lesions, and no evidence of cellulitis. MS/ Extremity: Pulses equal, no cyanosis. Neurovascular intact. Full, normal range of motion. Neuro: Awake and alert, GCS 15, oriented to person, place, time, and situation. Cranial nerves II-XII grossly intact. Motor strength 5/5 in all extremities. Sensory grossly intact. Cerebellar exam normal. Normal gait. Psych: Awake, alert, with orientation to person, place and time. Behavior, mood, and affect are within normal limits. 17:13 Abdomen/GI: Inspection: distension, Bowel sounds: normal, Palpation: mild abdominal tenderness, moderate abdominal tenderness, in all quadrants, Liver: no appreciated palpable abnormalities, Hernia: noted in the umbilical area, 19:43 ECG was reviewed by the Attending Physician. [facility] Vital Signs: 16:36 BP 182 / 93; Pulse 79; Resp 20; Temp 98.5(TE); Pulse Ox 98% on R/A; Weight 104.33 kg; hb Height 6 ft. 2 in. ; Pain 10/10; 18:38 BP 154 / 73; Pulse 67; Resp 18; Temp 98.6; Pulse Ox 99% on R/A; rs5 19:51 BP 175 / 73; Pulse 71; Resp 16; Pulse Ox 98% on R/A; tm6 16:36 Body Mass Index 29.53 (104.33 kg, 187.96 cm) hb 16:36 Pain Scale: Adult hb MDM: 16:41 Patient medically screened. mendez 17:15 Differential diagnosis: AAA, bowel obstruction, Cholelithiasis, diverticulitis, mendez gastritis, gastroesophageal reflux disease, Hepatitis, Irritable bowel syndrome, non-specific abd pain, pancreatitis, Peptic Ulcer Disease, Perf. Duodenal Ulcer, Perf. Gastric Ulcer, Peritonitis, Prostatitis, urinary tract infection. Data reviewed: vital signs, nurses notes, lab test result(s), EKG, radiologic studies, CT scan, plain films. Consideration of Admission/Observation Escalation of care including admission/observation considered. I considered the following discharge prescriptions or medication management in the emergency department Medications were administered in the Emergency Department. See MAR. Independent interpretation of the following test(s) in the Emergency Department EKG: See my EKG interpretation above. Test considered but Not performed: Ultrasound NO ABD USG. Historians other than the Patient: Spouse/Significant Other: WELL INFORMED. Care significantly affected by the following chronic conditions: Hypertension, Chronic Obstructive Pulmonary Disease, Chronic Kidney Disease, HIGH CHOLESTEROL. 05/26 17:01 Order name: Basic Metabolic Panel; Complete Time: 18:45 [facility] 05/26 17:01 Order name: CBC with Diff; Complete Time: 18:16 [facility] 05/26 17:01 Order name: LFT's; Complete Time: 18:45 [facility] 05/26 17:01 Order name: Magnesium; Complete Time: 18:45 [facility] 05/26 17:01 Order name: NT PRO-BNP; Complete Time: 18:45 05/26 17:01 Order name: PT-INR; Complete Time: 18:16 [facility] 05/26 17:01 Order name: Troponin HS; Complete Time: 18:45 05/26 17:01 Order name: Urinalysis w/ reflexes; Complete Time: 18:16 05/26 17:01 Order name: Urine Culture 05/26 17:42 Order name: Blood Culture Adult (2) 05/26 17:42 Order name: Lactate w/ 2H reflex if indic.; Complete Time: 18:53 05/26 17:01 Order name: XRAY Chest (1 view); Complete Time: 17:36 05/26 17:01 Order name: CT Abd/Pelvis - Without Contrast; Complete Time: 17:36 [facility] 05/26 17:01 Order name: EKG; Complete Time: 17:02 05/26 17:01 Order name: Cardiac monitoring; Complete Time: 19:29 05/26 17:01 Order name: EKG - Nurse/Tech; Complete Time: 19:29 05/26 17:01 Order name: IV Saline Lock; Complete Time: 19:07 [facility] 05/26 17:01 Order name: Labs collected and sent; Complete Time: 19:07 [facility] 05/26 17:01 Order name: O2 Per Protocol; Complete Time: 19:07 [facility] 05/26 17:01 Order name: O2 Sat Monitoring; Complete Time: 19:07 [facility] EC:43 Rate is 72 beats/min. Rhythm is regular. QRS [place] is Normal. [place] interval is prolonged mendez at 228 msec. QRS interval is normal. QT interval is normal. No Q waves. T waves are Normal. No ST changes noted. Clinical impression: NSR w/ Non-specific ST/T Changes, 1st degree heart block, and No evidence of ischemia. Interpreted by me. Reviewed by me. Administered Medications: 17:17 Drug: NS 0.9% IV 1000 ml IV at 125 ml/hr continuous Route: IV; Rate: 125 ml/hr; Site: rs5 right antecubital; 17:30 Follow up: Response: No adverse reaction rs5 17:17 Drug: morphine IVP or IV 4 mg IVP once over 4 mins Route: IVP; Infused Over: 4 mins; rs5 Site: right antecubital; 17:30 Follow up: Response: No adverse reaction rs5 17:17 Drug: Ondansetron IVP 4 mg IVP once; over 2 minutes Route: IVP; Site: right antecubital;rs5 17:30 Follow up: Response: No adverse reaction rs5 18:05 Drug: levofloxacin IVPB 500 mg 100 ml IVPB once over 60 mins Volume: 100 ml; Route: rs5 IVPB; Infused Over: 60 mins; Site: right antecubital; 18:20 Follow up: Response: No adverse reaction rs5 19:29 Drug: Rocephin IV 1 grams IV at per protocol once; Given slow IV push per pharmacy tm6 instructions Route: IV; Rate: per protocol; Site: right antecubital; 21:02 Drug: Ondansetron IVP 4 mg IVP once; over 2 minutes Route: IVP; Site: right antecubital;jb4 21:04 Follow up: Response: Medication administered at discharge. jb4 21:04 Drug: morphine IVP or IV 4 mg IVP once over 4 mins Route: IVP; Infused Over: 4 mins; jb4 Site: right antecubital; 21:04 Follow up: Response: Medication administered at discharge. jb4 Disposition Summary: 05/27/23 18:21 Transfer Ordered Notes: Transfer Location: Other Acute Care Facility mendez Reason: Higher level of care mendez Condition: Fair mendez Problem: new mendez Symptoms: have improved mendez Accepting Physician: TO [facility] CLEARY PER DR MARTINEZ(05/27/23 21:09) jb4 Diagnosis - Dependence on renal dialysis - PERITONEAL DIALYSIS mendez - Abdominal pain, Generalized mendez - Elevated white blood cell count mendez - Polycystic kidney, adult type mendez Forms: - Medication Reconciliation Form mendez - SBAR form mendez Signatures: Dispatcher [employer] Jimmie Rosales MD MD cha Baxter, Heather RN Peter Michaels RN RN jb4 Andres Saldaña RN RN rs5 Aftab Jones MD MD sp4 Barb Hsu RN RN tm6 Corrections: (The following items were deleted from the chart) 21:09 18:21 TO [facility] PER DR JUAN simms jb4
--- NOTE | 2023-05-27 18:22 | ER ---
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 Coronavirus screen: At this time, the client does not indicate any symptoms associated with coronavirus-19. Ebola Screen: No symptoms or risks identified at this time. Initial Sepsis Screen: Does the patient meet any 2 criteria? No. Patient's initial sepsis screen is negative. Does the patient have a suspected source of infection? No. Patient's initial sepsis screen is negative. Risk Assessment: Do you want to hurt yourself or someone else? Patient reports no desire to harm self or others. Onset of symptoms was May 26, 2023. 16:36 Method Of Arrival: Ambulatory hb 16:36 Acuity: CHAVA 3 hb Triage Assessment: 16:37 General: Appears in no apparent distress. Behavior is calm, cooperative. Pain: Pain hb currently is 10 out of 10 on a pain scale. Neuro: Level of Consciousness is awake, alert, obeys commands, Oriented to person, place, time, situation. Cardiovascular: Patient's skin is warm and dry. Respiratory: Respiratory effort is even, unlabored, Respiratory pattern is regular, symmetrical. : Reports burning with urination, pain in suprapubic area in lower back. Historical: - Allergies: 16:37 Iodine; hb - PMHx: 16:37 AAA; Aneurysm; COPD; Gout; High Cholesterol; Hypertension; PERITONEAL DIALYSIS hb (Unknown); POLYCYSTIC KIDNEY DISEASE; - Immunization history:: Adult Immunizations up to date. - Social history:: Smoking status: Patient denies any tobacco usage or history of. - Family history:: not pertinent. Screenin:40 [facility] ED Fall Risk Assessment (Adult) History of falling in the last 3 months, rs5 including since admission No falls in past 3 months (0 pts) Confusion or Disorientation No (0 pts) Intoxicated or Sedated No (0 pts) Impaired Gait No (0 pts) Mobility Assist Device Used No (0 pt) Altered Elimination No (0 pt) Score/Fall Risk Level 0 - 2 = Low Risk Oriented to surroundings, Maintained a safe environment. Abuse screen: Denies threats or abuse. Nutritional screening: No deficits noted. Tuberculosis screening: No symptoms or risk factors identified. Assessment: 16:40 General: Appears in no apparent distress. comfortable, Behavior is calm, cooperative. rs5 Pain: Complains of pain in lower abdomen Pain radiates to lower back Pain currently is 7 out of 10 on a pain scale. Quality of pain is described as aching, Is continuous. Neuro: Level of Consciousness is awake, alert, obeys commands, Oriented to person, place, time, situation. Cardiovascular: Patient's skin is warm and dry. Rhythm is regular. Respiratory: Airway is patent Respiratory effort is even, unlabored, Respiratory pattern is regular, symmetrical. GI: Abdomen is round non-distended, Abd is soft and non tender X 4 quads. : Reports burning with urination. 16:40 EENT: No signs and/or symptoms were reported regarding the EENT system. Derm: Skin is rs5 intact, Skin is pink, warm \T\ dry. Musculoskeletal: Range of motion: intact in all extremities. 17:48 Reassessment: Patient and/or family updated on plan of care and expected duration. Pain rs5 level reassessed. Patient is alert, oriented x 3, equal unlabored respirations, skin warm/dry/pink. Patient denies pain at this time. Patient states feeling better. Patient states symptoms have improved. 18:37 Reassessment: No changes from previously documented assessment. rs5 19:50 Reassessment: report attempted. tm6 19:51 Reassessment: Patient and/or family updated on plan of care and expected duration. Pain tm6 level reassessed. Patient is alert, oriented x 3, equal unlabored respirations, skin warm/dry/pink. 20:18 Reassessment: report attempted. tm6 Vital Signs: 16:36 BP 182 / 93; Pulse 79; Resp 20; Temp 98.5(TE); Pulse Ox 98% on R/A; Weight 104.33 kg; hb Height 6 ft. 2 in. ; Pain 10/10; 18:38 BP 154 / 73; Pulse 67; Resp 18; Temp 98.6; Pulse Ox 99% on R/A; rs5 19:51 BP 175 / 73; Pulse 71; Resp 16; Pulse Ox 98% on R/A; tm6 16:36 Body Mass Index 29.53 (104.33 kg, 187.96 cm) hb 16:36 Pain Scale: Adult hb ED Course: 16:31 Patient arrived in ED. ae5 16:37 Triage completed. hb 16:37 Arm band placed on. hb 16:40 Patient has correct armband on for positive identification. Placed in gown. Bed in low rs5 position. Call light in reach. Side rails up X2. 16:40 No provider procedures requiring assistance completed. rs5 16:41 Amy Tabor, MONA is Primary Nurse. nj1 16:41 Jimmie Holland MD is Attending Physician. mendez 16:42 Thermoregulation: warm blanket given to patient. hb 17:16 CT Abd/Pelvis - Without Contrast In Process Unspecified. EDMS 17:17 XRAY Chest (1 view) In Process Unspecified. EDMS 18:29 initiated transfer to [facility]. bd 21:06 Provided Education on: Plan of care. jb4 21:06 Patient transferred, IV remains in place. jb4 Administered Medications: 17:17 Drug: NS 0.9% IV 1000 ml IV at 125 ml/hr continuous Route: IV; Rate: 125 ml/hr; Site: rs5 right antecubital; 17:30 Follow up: Response: No adverse reaction rs5 17:17 Drug: morphine IVP or IV 4 mg IVP once over 4 mins Route: IVP; Infused Over: 4 mins; rs5 Site: right antecubital; 17:30 Follow up: Response: No adverse reaction rs5 17:17 Drug: Ondansetron IVP 4 mg IVP once; over 2 minutes Route: IVP; Site: right antecubital;rs5 17:30 Follow up: Response: No adverse reaction rs5 18:05 Drug: levofloxacin IVPB 500 mg 100 ml IVPB once over 60 mins Volume: 100 ml; Route: rs5 IVPB; Infused Over: 60 mins; Site: right antecubital; 18:20 Follow up: Response: No adverse reaction rs5 19:29 Drug: Rocephin IV 1 grams IV at per protocol once; Given slow IV push per pharmacy tm6 instructions Route: IV; Rate: per protocol; Site: right antecubital; 21:02 Drug: Ondansetron IVP 4 mg IVP once; over 2 minutes Route: IVP; Site: right antecubital;jb4 21:04 Follow up: Response: Medication administered at discharge. jb4 21:04 Drug: morphine IVP or IV 4 mg IVP once over 4 mins Route: IVP; Infused Over: 4 mins; jb4 Site: right antecubital; 21:04 Follow up: Response: Medication administered at discharge. jb4 Medication: 18:38 VIS not applicable for this client. rs5 Outcome: 18:21 ER care complete, transfer ordered by . mendez 21:06 Transferred by ground EMS EMS. to [facility], [facility], Transfer form jb4 completed. X-rays sent w/ patient. 21:06 Condition: stable 21:06 Discharge instructions given to patient, Instructed on the need for transfer, Demonstrated understanding of instructions, 21:09 Patient left the ED. jb4 Signatures: Dispatcher [employer] EDMS Clarisa Quinones Corey, MD MD cha Baxter, Heather, RN RN Peter Nieto RN RN jb4 Andres Saldaña RN RN rs5 Amy Tabor RN MONA hicks1 Barb Hsu RN RN tm6 Shelli Carranza ae5 Corrections: (The following items were deleted from the chart) 18:37 16:40 Pain: Denies pain. rs5 rs5 18:37 16:40 : Reports rs5 rs5
[2023-05-27 18:28] LABS: Albumin 2.8 g/dL (3.4-5.0); Albumin/Globulin Ratio 0.7 (1.1-1.8); Alkaline Phosphatase 46 U/L (45-117); Anion Gap 10.9 mEq/L (5.0-15.0); BUN Blood Urea Nitrogen 52 mg/dL (7-18); Bicarbonate 25 mEq/L (21-32); Bilirubin Direct 0.1 mg/dL (0-0.2); Bilirubin Indirect, Calculated 0.3 mg/dL (0.2-0.8); Bilirubin Total 0.4 mg/dL (0.2-1.0); Globulin 3.9 g/dL (2.3-3.5); Glomerular Filtration Rate 7 ml/min (=/>90); Glucose Level 91 mg/dL (74-106); Magnesium 1.7 mg/dL (1.6-2.4); NT PRO-BNP 6713 pg/mL (<125); Potassium 4.9 mEq/L (3.5-5.1); Protein, Total 6.7 g/dL (6.4-8.2); Sodium Level 139 mEq/L (136-145); Troponin High Sensitivity 30.2 pg/mL (<58.9)
[2023-05-27 18:42] LABS: ALT/SGPT < 10 U/L (16-61); AST/SGOT < 4 U/L (15-37)
[2023-05-27 21:43] VITALS: BP 175/73; TEMP 98.6; O2SAT 98
== END ==
LOC: ER 16:25
DX: R10.84 Generalized abdominal pain (principal); Z99.2 Dependence on renal dialysis; D72.829 Elevated white blood cell count, unspecified; Q61.2 Polycystic kidney, adult type; Z91.048 Other nonmedicinal substance allergy status
CPT/HCPCS: 87040 ×2; 87088; 85025; 81001; 87086; 80048; 36415; 83735; 85610; 80076; 83605; 84484; 83880; 74176; 71045; J2405 ×2; J7030; J0696; 93005

== ENCOUNTER 2023-12-04 12:30 | Day surgery (SDC) | payer OTHER ==
[2023-12-01 15:11] LABS: Absolute Basophils 0.1 K/uL (0-0.5); Absolute Eosinophils 0.3 K/uL (0-0.5); Absolute Lymphocytes (CBC) 1.2 K/uL (0.7-4.9); Absolute Monocytes 0.8 K/uL (0.1-1.3); Absolute Neutrophil 7.4 K/uL (1.8-8.0); Basophils % 0.7 % (0-1.3); Eosinophils % 2.8 % (0-4.4); Hematocrit 29.9 % (39.6-49.0); Hemoglobin 9.5 g/dL (13.6-17.9); MCH 30.4 pg (27.0-35.0); MCHC 31.8 g/dL (32.0-36.0); MCV 95.6 fL (80-100); MPV 7.8 fL (7.6-11.3); Monocytes % 8.4 % (3.3-12.3); Neutrophils % 76.1 % (41.7-73.7); Nucleated Red Blood Cells % 0.1 % (0-0); Platelets 267 thou/uL (152-406); RBC Red Blood Cell Count 3.13 M/uL (4.33-5.43); Red Cell Distribution Width 16.1 % (12.1-15.2)
[2023-12-01 15:14] LABS: PT Prothrombin Time 11.7 SECONDS (9.4-12.5); PTT, Activated Partial Thromb 34.5 SECONDS (24.3-36.9); Protime INR 1.05
[2023-12-01 15:42] LABS: Anion Gap 11.8 mEq/L (5.0-15.0); Potassium 3.8 mEq/L (3.5-5.1)
--- NOTE | 2023-12-01 17:35 | RAD REPORT ---
EXAMINATION: ONE VIEW CHEST XR CLINICAL INDICATION: Male, 68 years old.,PREPROCEDURE SCREENING. Hypertension TECHNIQUE: Frontal chest projection is submitted. Examination is limited by patient positioning and t echnique. COMPARISON: 05/27/2023 FINDINGS: The lungs are well inflated and clear. No pneumothorax or sizable effusion. The heart is normal in s ize. IMPRESSION: No acute intrathoracic abnormalities.
--- NOTE | 2023-12-02 12:57 | EKG ---
Test Date: 2023-12-01 Test Time: 14:47:16 [employer] Operator: NATIVIDAD MEASUREMENT RESULTS: Intervals: Rate: 76 MD: 240 QRSD: 78 QT: 394 QTc: 443 Manti: P: 98 MD: 240 QRS: 21 T: 46 INTERPRETIVE STATEMENTS: Sinus rhythm with 1st degree AV block Cannot rule out Anteroseptal infarct, age undetermined Abnormal ECG Compared to ECG 09/14/2023 10:13:49 Sinus bradycardia no longer present Myocardial infarct finding still present Electronically Signed On 12-02-23 12:54:32 CDT by Johnnie Bailey
[2023-12-04] MEDS ORDERED: NA CHLORIDE 0.9% 500 ML ONE ×2 (13:23→16:38)
[2023-12-04] MEDS ORDERED: ATROPINE SULF 1 MG/10 ML SYR IV ONE (15:40)
[2023-12-04] MEDS ORDERED: HEPA 1000U/500MLS 2,000 UNIT/1,000 ML BAG IV ONE (15:40)
[2023-12-04] MEDS ORDERED: LIDOCAINE 1% 20 ML MDV ONE (15:40)
[2023-12-04] MEDS ORDERED: VERAPAMIL HCL 10 MG/4 ML VIAL IV ONE (15:40)
[2023-12-04] MEDS ORDERED: CLOPIDOGREL 75 MG TABLET ONE (15:40)
[2023-12-04] MEDS ORDERED: HEPARIN 10,000 UNIT/10 ML VIAL IV ONE (15:40)
[2023-12-04] MEDS ORDERED: TICAGRELOR 90 MG TABLET PO ONE (15:41)
[2023-12-04] MEDS ORDERED: HEPARIN 5000 UNIT/ML 1 ML VIAL ONE (15:41)
[2023-12-04] MEDS ORDERED: ASPIRIN 325 MG TAB ONE (15:41)
[2023-12-04] MEDS ORDERED: FENTANYL CITR 100 MCG/2 ML ONE (16:00)
[2023-12-04] MEDS ORDERED: MIDAZOLAM HCL 2 MG/2 ML INJ ONE (16:01)
[2023-12-04] MEDS ORDERED: NA CHLORIDE 0.9% 100 ML ONE (16:32)
[2023-12-04 19:27] VITALS: TEMP 97.8
[2023-12-04 20:27] VITALS: BP 162/73; O2SAT 99
--- NOTE | 2023-12-08 02:39 | OP ---
Date of Procedure: 12/04/2023 Surgeon: MONALISA SOSA Procedures Performed: 1.Coronary angiogram. 2.Left heart catheterization. 3.Right heart catheterization. 4.PCI of severe mid RCA stenosis. I used 4.0 x 28 mm Synergy drug-eluting stent. Indication: Chest pain with aortic valve stenosis that appears to be severe by echo. Access: 1.Right radial artery 6-Zimbabwean closed with TR band. 2.Right IJ 7-Zimbabwean closed with manual pressure. Complications: None. Bleeding: Less than 50 mL. Anesthesia: Total sedation time was 65 minutes. Used fentanyl and Versed. Description Of Procedure: After risks, benefits, and alternatives were explained, the patient agreed to the procedure and signed informed consent. The patient was brought into cardiac catheterization laboratory, prepped and draped in sterile fashion. Then, I accessed right radial artery using pediat edson micropuncture kit and placed 6-Zimbabwean Slender sheath and the accessed the right IJ using ultrasou nd guidance and micropuncture kit and placed a 7-Zimbabwean Pinch sheath. Then, I took a balloon tipp ed 7-Zimbabwean swan catheter into right atrium, right ventricle, pulmonary artery and wedge and obtained waveform and pressures and obtained cardiac output by thermodilution method and then removed the Swa n catheter and the IJ sheath was removed. Manual pressure was applied with good hemostasis. Then, I took 5-Zimbabwean [place] 4 catheter into the aortic root over a J-wire, engaged left main and then right coronary artery, took standard views. Then, the aortic valve was crossed over the wire and I sent [place] catheter into the LV and did simultaneous measurements of the LV and the aorta and pullback di d not record any gradient. Then, we gave systemic heparin to assure ACT level above 250 throughout t he procedure. Took a 6-Zimbabwean JR4 guide over J-wire into the aortic root, engaged the RCA. Took run -through wire into the RCA, placed it distally, and using a 3.5 balloon, lesions were pre-dilated suc cessfully and then I took a 4.0 x 28 mm Synergy drug-eluting stent across the area of stenosis, deplo yed successfully and 0% residual stenosis. I removed the wire and final angiogram was satisfactory. At this point, the patient received heparin to assure ACT level above 250 and dual antiplatelet medi cations. I removed the guide and the sheath and placed TR band with good hemostasis. Findings: 1.Coronary angiogram: a.Left main is normal. b.LAD: Proximal to mid segment normal. There is irregularity distally. The diagonal br anch has 50% proximally. c.Left circumflex: Proximal segment is normal, then OM branch takes off, has mid 40% to 50% stenosi s. Rest of the circumflex is normal. d.RCA: Large and dominant with proximal to mid 90% stenosis, mid 50% stenosis, status post successf ul PCI as above. 2.Right heart cath numbers: RA pressure was 8, RV pressure was 30/4, mean of 10. PA pressure was 3 6/12, mean of 21. Pulmonary wedge pressure was 12, LVEDP was 17 mmHg and cardiac output was 7.4 L/mi nute. Aortic valve area was 1.5 sq cm and mean gradient across the aortic valve was 24 mmHg. Conclusion: 1.Severe proximal to mid RCA stenosis, status post successful PCI as above. 2.Moderate aortic valve stenosis. Recommendation: Dual antiplatelet therapy and high-dose statin and periodic echo to evaluate the giovanna ve. SR/MODL Voice ID: [id number] Report ID: [id number]
== END 2023-12-04 20:42 | disposition home or self-care (01) ==
LOC: PRE 12:30 → CCL 20:42
PROVIDERS: ATTEND Internal Medicine
DX: I25.110 Atherosclerotic heart disease of native coronary artery with unstable angina pectoris (principal); I35.0 Nonrheumatic aortic (valve) stenosis; I71.40 Abdominal aortic aneurysm, without rupture, unspecified; I73.9 Peripheral vascular disease, unspecified; I10 Essential (primary) hypertension; E11.9 Type 2 diabetes mellitus without complications; E78.5 Hyperlipidemia, unspecified; Z87.891 Personal history of nicotine dependence; Z79.899 Other long term (current) drug therapy
CPT/HCPCS: 93005; 85025; 80048; 36415; 85610; 85347 ×2; 85730; 71045; 93460; 76937; C1893; Q9967; C1725; C9600; J1644; J2001; J2250; J3010; J7040 ×2; 99152; 99153; J0461

== ENCOUNTER 2024-03-15 11:29 | Inpatient (IN) | payer OTHER ==
--- NOTE | 2024-03-15 13:03 | RAD REPORT ---
EXAMINATION: CT ABDOMEN AND PELVIS WITHOUT CONTRAST CLINICAL INDICATION: Abdominal pain. Decreased appetite TECHNIQUE: CT abdomen and pelvis was performed, as per department protocol. IV contrast and oral was not administered.Axial, sagittal and coronal reconstructions were obtained. One or more of the following dose reduction techniques were used: Automated exposure control, adjustment of the mA and/o r kV according to the patient size, and/or iterative reconstruction. Unless otherwise specified, incidental findings do not require dedicated imaging follow-up. [id number]. COMPARISON: May 2023. FINDINGS: The lack of intravenous and oral contrast limits evaluation of solid organs, vessels and bowel. 15 millimeter right lower lobe nodule containing fat unchanged from 2020 is benign Stable hepatic cysts Spleen, pancreas and adrenals grossly normal Polycystic kidneys containing simple and complex cysts. No evidence of an acute significant hemorrhage within a cyst. No hydronephrosis. Little normal appearing renal parenchyma. The appendix is normal. A stent has been placed into the the aorta and iliac arteries. No retroperitoneal hematoma. Peritoneal catheter with its tip in the pelvis. Diverticula stem from colon. Mild stranding adjacent to the sigmoid no free air. No abscess. Small amount of ascites. Small umbilical hernia contains ascites. IMPRESSION: Mild sigmoid diverticulitis Polycystic renal disease
[2024-03-15] MEDS ORDERED: ONDANSETRON 4 MG/2 ML VIAL ONE (14:54)
[2024-03-15] MEDS ORDERED: MORPHINE 4 MG/ML SYR ONE (14:54)
[2024-03-15] MEDS ORDERED: NA CHLORIDE 0.9% 1,000 ML ONE (14:54)
[2024-03-15] MEDS ORDERED: NA CHLORIDE 0.9% 100 ML ONE (14:55)
[2024-03-15] MEDS ORDERED: PIPERACIL/TAZO 3.375 GM VIAL IV ONE (14:55)
[2024-03-15 15:17] LABS: Absolute Basophils 0.1 K/uL (0-0.5); Absolute Eosinophils 0.2 K/uL (0-0.5); Absolute Lymphocytes (CBC) 2.1 K/uL (0.7-4.9); Absolute Monocytes 0.8 K/uL (0.1-1.3); Absolute Neutrophil 6.5 K/uL (1.8-8.0); Basophils % 0.6 % (0-1.3); Eosinophils % 2.3 % (0-4.4); Hematocrit 36.7 % (39.6-49.0); Hemoglobin 11.9 g/dL (13.6-17.9); Lymphocytes % 21.4 % (15.3-44.8); MCHC 32.4 g/dL (32.0-36.0); MCV 89.4 fL (80-100); MPV 7.7 fL (7.6-11.3); Monocytes % 8.1 % (3.3-12.3); Neutrophils % 67.6 % (41.7-73.7); Platelets 265 thou/uL (152-406); Red Cell Distribution Width 17.7 % (12.1-15.2)
[2024-03-15 15:34] LABS: Albumin/Globulin Ratio 0.7 (1.1-1.8); Alkaline Phosphatase 65 U/L (45-117); Anion Gap 12.8 mEq/L (5.0-15.0); BUN Blood Urea Nitrogen 67 mg/dL (7-18); Bicarbonate 25 mEq/L (21-32); Bilirubin Total 0.4 mg/dL (0.2-1.0); Globulin 4.3 g/dL (2.3-3.5); Glomerular Filtration Rate 5 ml/min (=/>90); Glucose Level 93 mg/dL (74-106); Lipase 33 U/L (13-75); Potassium 4.8 mEq/L (3.5-5.1); Protein, Total 7.3 g/dL (6.4-8.2); Sodium Level 137 mEq/L (136-145)
[2024-03-15 15:36] LABS: ALT/SGPT < 14 U/L (16-61); AST/SGOT < 10 U/L (15-37)
--- NOTE | 2024-03-15 16:07 | EDPHYS ---
Physician Documentation [facility] Name: Stan Jimenes Age: 68 yrs Sex: Male : 1955 Arrival Date: 03/15/2024 Time: 11:29 Bed 18 Private MD: ED Physician José Miguel Garcia HPI: 03/15 18:27 This 68 yrs old Male presents to ER via Ambulatory with complaints of Weakness - Sent rt by , Decreased Appetite. 18:27 Patient presents to the ED with abdominal pain, nausea, vomiting. Patient was seen rt recently at an ER in other facility, was diagnosed diverticulitis, sent home with oral antibiotics. Patient was sent by his load test mechanic due to the diverticulitis with peritoneal dialysis dependence. Denies other acute complaints at this time, symptoms are moderate severity, no other aggravating or elevating factors.. Historical: - Allergies: 12:05 Iodine; cm10 - Home Meds: 12:05 Neurontin 100 mg oral capsule as needed [Active]; Lasix 40 mg Oral tablet 1 tab daily cm10 [Active]; lisinopril 10 mg Oral tablet daily [Active]; pantoprazole 40 mg oral tablet, delayed release (enteric coated) 1 tab daily [Active]; levothyroxine 50 mcg tablet daily [Active]; cyclobenzaprine 10 mg Oral tablet 1 tab 3 times per day [Active]; Flomax 0.4 mg Oral capsule daily [Active]; hydralazine 25 mg Oral tablet 1 tab 2 times per day [Active]; atorvastatin 20 mg oral tablet 1 tab daily [Active]; Cipro 250 mg Oral tablet daily [Active]; Augmentin 500-125 mg Oral tablet 1 tab 2 times per day [Active]; cefdinir 300 mg oral capsule 1 cap 2 times per day [Active]; allopurinol 300 mg Oral tablet 1 tab daily [Active]; calcitriol 0.5 mcg oral capsule 1 cap Every other day [Active]; albuterol sulfate 90 mcg/actuation Inhl Aerosol Powder, Breath Activated [Active]; aspirin 81 mg Oral capsule daily [Active]; carvedilol 6.25 mg oral tablet 1 tab 2 times per day [Active]; potassium chloride 20 mEq Oral Packet 1 packet daily [Active]; atorvastatin 20 mg oral tablet 1 tab daily [Active]; MagOx 400 mg (241.3 mg magnesium) oral tablet [Active]; - PMHx: 12:05 AAA; Aneurysm; COPD; Gout; High Cholesterol; Hypertension; PERITONEAL DIALYSIS cm10 (Unknown); POLYCYSTIC KIDNEY DISEASE; - Immunization history:: Adult Immunizations up to date. - Infectious Disease History:: Denies. - Social history:: Smoking status: Patient denies any tobacco usage or history of. - Family history:: not pertinent. ROS: 18:27 Constitutional: Negative for fever, chills, and weight loss, Cardiovascular: Negative rt for chest pain, palpitations, and edema, Respiratory: Negative for shortness of breath, cough, wheezing, and pleuritic chest pain, MS/Extremity: Negative for injury and deformity, Neuro: Negative for headache, weakness, numbness, tingling, and seizure, 18:27 Abdomen/GI: Positive for abdominal pain, nausea and vomiting, Exam: 18:27 Constitutional: This is a well developed, well nourished patient who is awake, alert, rt and in no acute distress. Head/Face: Normocephalic, atraumatic. Chest/axilla: Normal chest wall appearance and motion. Nontender with no deformity. No lesions are appreciated. Cardiovascular: Regular rate and rhythm with a normal S1 and S2. No gallops, murmurs, or rubs. Normal PMI, no JVD. No pulse deficits. Respiratory: Lungs have equal breath sounds bilaterally, clear to auscultation and percussion. No rales, rhonchi or wheezes noted. No increased work of breathing, no retractions or nasal flaring. Skin: Warm, dry with normal turgor. Normal color with no rashes, no lesions, and no evidence of cellulitis. MS/ Extremity: Pulses equal, no cyanosis. Neurovascular intact. Full, normal range of motion. 18:27 Abdomen/GI: Mild tenderness to the left lower quadrant without rebound, guarding, distention, Vital Signs: 12:03 BP 120 / 77; Pulse 62; Resp 15; Temp 97.6(O); Pulse Ox 96% on R/A; Weight 97.98 kg; cm10 Height 6 ft. 2 in. ; Pain 6/10; 14:45 BP 116 / 54; Pulse 66; Resp 20; Temp 97.9; Pulse Ox 100% ; kc6 15:58 BP 115 / 61; Pulse 68; Resp 18; Pulse Ox 100% on R/A; kj2 17:00 BP 118 / 68; Pulse 70; Resp 18; Temp 97.9; Pulse Ox 98% on R/A; kj2 18:43 BP 121 / 63; Pulse 63; Resp 18; Temp 97.9; Pulse Ox 97% on R/A; kj2 12:03 Body Mass Index 27.73 (97.98 kg, 187.96 cm) cm10 12:03 Pain Scale: Adult cm10 MDM: 12:11 Medical Screening Exam initiated rt 18:27 Data reviewed: vital signs, nurses notes, lab test result(s), radiologic studies. rt Consideration of Admission/Observation Patient was admitted/placed on observation. Management of patient was discussed with the following: Advertising Intern: Patient's load test mechanic wants patient admitted. Independent interpretation of the following test(s) in the Emergency Department CT Scan: My interpretation is No bowel obstruction syndrome interpretation of CT scan images. Care significantly affected by the following chronic conditions: Hypertension. Counseling: I had a detailed discussion with the patient and/or guardian regarding the historical points, exam findings, and any diagnostic results supporting the discharge/admit diagnosis, lab results, radiology results, the need for further work-up and treatment in the hospital. Response to treatment: the patient's symptoms have mildly improved after treatment. 03/15 12:11 Order name: CBC with Diff; Complete Time: 15:42 rt 03/15 12:11 Order name: CMP; Complete Time: 15:42 rt 03/15 12:11 Order name: Lipase; Complete Time: 15:42 rt 03/15 17:17 Order name: T4 Free EDMS 03/15 17:17 Order name: CBC with Automated Diff EDMS 03/15 17:17 Order name: CBC with Automated Diff EDMS 03/15 17:17 Order name: Comprehensive Metabolic Panel EDMS 03/15 17:17 Order name: Comprehensive Metabolic Panel EDMS 03/15 17:17 Order name: Lipid Profile EDMS 03/15 17:17 Order name: Lipid Profile EDMS 03/15 17:17 Order name: Magnesium EDMS 03/15 17:17 Order name: Magnesium EDMS 03/15 17:17 Order name: Phosphorus EDMS 03/15 17:17 Order name: Phosphorus EDMS 03/15 17:17 Order name: Blood Culture EDMS 03/15 12:18 Order name: Abdomen EDKY 03/15 13:03 Order name: CT; Complete Time: 14:17 EDKY 03/15 17:17 Order name: CONS Physician Consult EDKY 03/15 12:11 Order name: IV Saline Lock; Complete Time: 15:15 rt 03/15 12:11 Order name: Labs collected and sent; Complete Time: 15:15 rt Administered Medications: 15:13 Drug: NS 0.9% IV 1000 ml IV at 1 bolus Per protocol; to be given as a bolus over 60 kc6 minutes Route: IV; Rate: 1 bolus; Site: right antecubital; 16:11 Follow up: IV Status: Completed infusion; IV Intake: 1000ml kj2 15:13 Drug: Piperacillin-Tazobactam IVPB 3.375 grams IVPB once over 60 mins; (mix in NS 100 kc6 mL) Route: IVPB; Infused Over: 60 mins; Site: right antecubital; 16:12 Follow up: IV Status: Completed infusion; IV Intake: 100ml kj2 15:14 Drug: Ondansetron IVP 4 mg IVP once; over 2 minutes Route: IVP; Site: right antecubital;kc6 16:11 Follow up: Response: No adverse reaction kj2 15:14 Drug: morphine IVP or IV 4 mg IVP once over 4 mins Route: IVP; Infused Over: 4 mins; kc6 Site: right antecubital; 16:11 Follow up: Response: No adverse reaction kj2 16:19 Drug: fentaNYL (PF) IVP 50 mcg IVP once Route: IVP; Site: right antecubital; kj2 18:46 Follow up: Response: No adverse reaction kj2 Disposition Summary: 03/15/24 16:06 Hospitalization Ordered Notes: Hospitalization Status: Inpatient Admission rt Provider: Ramin Wright rt Location: Telemetry/[facility] (Inpatient) rt Condition: Stable rt Problem: new rt Symptoms: are unchanged rt Bed/Room Type: Standard rt Room Assignment: 222(03/15/24 18:38) kb3 Diagnosis - Acute diverticulitis rt Forms: - Medication Reconciliation Form rt - SBAR form rt - Leadership Thank You Letter rt Signatures: Dispatcher [employer] Emi Goodson RN RN kc6 Kait Mcmillan RN RN kb3 José Miguel Garcia MD MD rt Celine Pereyra RN RN cm10 Annemarie Stanton RN RN kj2 Corrections: (The following items were deleted from the chart) 13:37 12:12 Abdomen Pelvis Wo Con+CT.RAD.BRZ ordered. EDMS EDMS 18:38 16:06 rt kb3
--- NOTE | 2024-03-15 16:07 | ER ---
Nurse's Notes [facility] Name: Stan Jimenes Age: 68 yrs Sex: Male : 1955 Arrival Date: 03/15/2024 Time: 11:29 Bed 18 Private MD: Diagnosis: Acute diverticulitis Presentation: 03/15 12:03 Chief complaint: Patient states: Sent by [employer] for Diverticulitis and decreased cm10 appetite. Pt also complaining of abdominal pain. prescribed ABX yesterday and has not started them. Coronavirus screen: Client denies travel out of the [place] in the last 14 days. Ebola Screen: Patient denies travel to an Ebola-affected area in the 21 days before illness onset. Initial Sepsis Screen: Does the patient meet any 2 criteria? No. Patient's initial sepsis screen is negative. Does the patient have a suspected source of infection? No. Patient's initial sepsis screen is negative. Risk Assessment: Do you want to hurt yourself or someone else? Patient reports no desire to harm self or others. Onset of symptoms was March 14, 2024. 12:03 Method Of Arrival: Ambulatory cm10 12:03 Acuity: CHAVA 3 cm10 Triage Assessment: 12:12 General: Appears in no apparent distress. uncomfortable, Behavior is calm, cooperative. cm10 Neuro: No deficits noted. Level of Consciousness is awake, alert, obeys commands, Oriented to person, place, time, situation, Appropriate for age. Respiratory: No deficits noted. Airway is patent Respiratory effort is even, unlabored, Respiratory pattern is regular, symmetrical. GI: Reports lower abdominal pain, upper abdominal pain. Historical: - Allergies: 12:05 Iodine; cm10 - Home Meds: 12:05 Neurontin 100 mg oral capsule as needed [Active]; Lasix 40 mg Oral tablet 1 tab daily cm10 [Active]; lisinopril 10 mg Oral tablet daily [Active]; pantoprazole 40 mg oral tablet, delayed release (enteric coated) 1 tab daily [Active]; levothyroxine 50 mcg tablet daily [Active]; cyclobenzaprine 10 mg Oral tablet 1 tab 3 times per day [Active]; Flomax 0.4 mg Oral capsule daily [Active]; hydralazine 25 mg Oral tablet 1 tab 2 times per day [Active]; atorvastatin 20 mg oral tablet 1 tab daily [Active]; Cipro 250 mg Oral tablet daily [Active]; Augmentin 500-125 mg Oral tablet 1 tab 2 times per day [Active]; cefdinir 300 mg oral capsule 1 cap 2 times per day [Active]; allopurinol 300 mg Oral tablet 1 tab daily [Active]; calcitriol 0.5 mcg oral capsule 1 cap Every other day [Active]; albuterol sulfate 90 mcg/actuation Inhl Aerosol Powder, Breath Activated [Active]; aspirin 81 mg Oral capsule daily [Active]; carvedilol 6.25 mg oral tablet 1 tab 2 times per day [Active]; potassium chloride 20 mEq Oral Packet 1 packet daily [Active]; atorvastatin 20 mg oral tablet 1 tab daily [Active]; MagOx 400 mg (241.3 mg magnesium) oral tablet [Active]; - PMHx: 12:05 AAA; Aneurysm; COPD; Gout; High Cholesterol; Hypertension; PERITONEAL DIALYSIS cm10 (Unknown); POLYCYSTIC KIDNEY DISEASE; - Immunization history:: Adult Immunizations up to date. - Infectious Disease History:: Denies. - Social history:: Smoking status: Patient denies any tobacco usage or history of. - Family history:: not pertinent. Screenin:45 [facility] ED Fall Risk Assessment (Adult) History of falling in the last 3 months, kc6 including since admission No falls in past 3 months (0 pts) Confusion or Disorientation No (0 pts) Intoxicated or Sedated No (0 pts) Impaired Gait No (0 pts) Mobility Assist Device Used No (0 pt) Altered Elimination No (0 pt) Score/Fall Risk Level 0 - 2 = Low Risk Maintained a safe environment, Hourly rounding (assess needs \T\ fall precautionary measures) done. Abuse screen: Denies threats or abuse. Denies injuries from another. Nutritional screening: No deficits noted. Tuberculosis screening: No symptoms or risk factors identified. Assessment: 14:45 General: Appears uncomfortable, Behavior is calm, cooperative. Pain: Complains of pain kc6 in abdomen Pain currently is 8 out of 10 on a pain scale. Neuro: Level of Consciousness is awake, alert, obeys commands, Oriented to person, place, time, situation. Cardiovascular: Patient's skin is warm and dry. Respiratory: Airway is patent Respiratory effort is even, unlabored. GI: Bowel sounds present X 4 quads. Abdomen is tender to palpation X 4 quads. : No signs and/or symptoms were reported regarding the genitourinary system. 15:58 Reassessment: Patient appears in no apparent distress at this time. Patient and/or kj2 family updated on plan of care and expected duration. Pain level reassessed. Patient is alert, oriented x 3, equal unlabored respirations, skin warm/dry/pink. Vital Signs: 12:03 BP 120 / 77; Pulse 62; Resp 15; Temp 97.6(O); Pulse Ox 96% on R/A; Weight 97.98 kg; cm10 Height 6 ft. 2 in. ; Pain 6/10; 14:45 BP 116 / 54; Pulse 66; Resp 20; Temp 97.9; Pulse Ox 100% ; kc6 15:58 BP 115 / 61; Pulse 68; Resp 18; Pulse Ox 100% on R/A; kj2 17:00 BP 118 / 68; Pulse 70; Resp 18; Temp 97.9; Pulse Ox 98% on R/A; kj2 18:43 BP 121 / 63; Pulse 63; Resp 18; Temp 97.9; Pulse Ox 97% on R/A; kj2 12:03 Body Mass Index 27.73 (97.98 kg, 187.96 cm) cm10 12:03 Pain Scale: Adult cm10 ED Course: 11:33 Patient arrived in ED. ra3 11:36 José Miguel Garcia MD is Attending Physician. rt 12:05 Triage completed. cm10 12:13 Arm band placed on right wrist. Patient placed in waiting room. cm10 12:49 Abdomen In Process Unspecified. EDMS 14:40 Annemarie Stanton, MONA is Primary Nurse. kj2 14:45 Patient has correct armband on for positive identification. Provided Education on: call kc6 light. 14:45 Inserted saline lock: 20 gauge in right antecubital area, using aseptic technique. kc6 Blood collected. Flushed with 10 mL NS. 15:19 No provider procedures requiring assistance completed. kc6 16:06 Ramin Wright is Hospitalizing Provider. rt 19:30 Patient admitted, IV remains in place. kj2 Administered Medications: 15:13 Drug: NS 0.9% IV 1000 ml IV at 1 bolus Per protocol; to be given as a bolus over 60 kc6 minutes Route: IV; Rate: 1 bolus; Site: right antecubital; 16:11 Follow up: IV Status: Completed infusion; IV Intake: 1000ml kj2 15:13 Drug: Piperacillin-Tazobactam IVPB 3.375 grams IVPB once over 60 mins; (mix in NS 100 kc6 mL) Route: IVPB; Infused Over: 60 mins; Site: right antecubital; 16:12 Follow up: IV Status: Completed infusion; IV Intake: 100ml kj2 15:14 Drug: Ondansetron IVP 4 mg IVP once; over 2 minutes Route: IVP; Site: right antecubital;kc6 16:11 Follow up: Response: No adverse reaction kj2 15:14 Drug: morphine IVP or IV 4 mg IVP once over 4 mins Route: IVP; Infused Over: 4 mins; kc6 Site: right antecubital; 16:11 Follow up: Response: No adverse reaction kj2 16:19 Drug: fentaNYL (PF) IVP 50 mcg IVP once Route: IVP; Site: right antecubital; kj2 18:46 Follow up: Response: No adverse reaction kj2 Medication: 15:18 VIS not applicable for this client. kc6 Intake: 16:11 IV: 1000ml; Total: 1000ml. kj2 16:12 IV: 100ml; Total: 1100ml. kj2 Outcome: 16:06 Decision to Hospitalize by Provider. rt 19:30 Admitted to Med/surg accompanied by tech, room 222, kj2 19:30 Condition: stable 19:30 Instructed on the need for admit, 19:31 Patient left the ED. kj2 Signatures: Dispatcher [employer] EDMS Emi Aguirre RN RN kc6 José Miguel Garcia MD MD rt Celine Pereyra RN RN cm10 Lynette Waggoner ra3 Annemarie Stanton RN RN kj2 Corrections: (The following items were deleted from the chart) 12:12 12:03 Chief complaint: Patient states: Sent by [employer] for Diverticulitis and cm10 decreased appetite. cm10 12:12 12:03 BP 120 / 77; Pulse 62bpm; Resp 15bpm; Pulse Ox 96% RA; Temp 97.6F Oral; 97.98 kg; cm10 Height 6 ft. 2 in.; BMI: 27.7; Pain 0/10, Adult; cm10
[2024-03-15] MEDS ORDERED: FENTANYL CITR 100 MCG/2 ML ONE (16:17)
[2024-03-15] MEDS ORDERED: PROMETHAZINE 25 MG TABLET PO PRN (17:09)
[2024-03-15] MEDS ORDERED: ACETAMINOPHEN 500 MG TAB PO PRN (17:09)
[2024-03-15] MEDS ORDERED: SODIUM CHLORIDE 0.9% 10ML INJ IV PRN (17:09)
[2024-03-15] MEDS ORDERED: HYOSCYAMINE SULF 0.125 MG TAB PO PRN (17:09)
[2024-03-15] MEDS ORDERED: GABAPENTIN 100 MG CAP PO PRN (17:17)
--- NOTE | 2024-03-15 17:33 | P.HP ---
Certification for Inpatient Patient admitted to: Inpatient With expected LOS: >2 Midnights Patient will require the following post-hospital care: None Practitioner: I am a practitioner with admitting privileges, knowledge of patient current condition, hospital course, and medical plan of care. Services: Services provided to patient in accordance with Admission requirements found in Title 42 Section 412.3 of the Code of Federal Regulations Patient History Date of Service: 03/15/24 Reason for admission: Diverticulitis, volume depletion, peritoneal dialysis History of Present Illness: Mr. Jimenes is a 68-year-old gentleman with a past medical history of polycystic kidney disease for which he receives daily peritoneal dialysis, AAA stented in 2016, hypertension, hyperlipidemia, gout, COPD, and diverticulitis. He quit smoking about 20 years ago and has been on the transplant list at [facility] for quite some time. He states he got a call from [facility] today 03/15/2024 to enter their transplant program on the of this month. Mr. Jimenes complains of a 1 week history of diarrhea, malaise, low back pain, nausea, and anorexia. He made an appointment to see his credit intern, Dr. Velasquez, and was referred to the emergency department for admission for IV antibiotics. At bedside Mr. Jimenes appears volume depleted, with poor turgor, and generalized malaise. His blood pressure is 106/60 and he complains of burning epigastric pain with reflux. We will admit him for gentle hydration, IV antibiotics for diverticulitis/gastrointestinal infection, and symptom management. His went to get the peritoneal dialysis supplies and they will complete nightly PD. Allergies No Known Allergies Allergy (Verified 09/14/23 09:50) Home medications list reviewed: Yes Home Medications: Albuterol Sulfate [Proair Respiclick] 90 mcg IH PRN PRN 06/29/20 Aspirin [Aspirin EC 81 MG] 81 mg PO DAILY 06/29/20 Magnesium Oxide 400 mg PO DAILY 06/29/20 Allopurinol 100 mg PO DAILY 10/14/22 Calcitrol [Rocaltrol*] 0.5 mcg PO DAILY 10/14/22 Calcium Carbonate [Tums Regular*] 500 mg PO ACS 10/14/22 Cyclobenzaprine [Flexeril*] 10 mg PO DAILY 10/14/22 Furosemide 40 mg PO DAILY 10/14/22 Hydralazine HCl 25 mg PO BID 10/14/22 Pantoprazole [Protonix Tab*] 40 mg PO BID 10/14/22 Finasteride [Proscar*] 5 mg PO DAILY 90 Days #90 tab 10/16/22 Levothyroxine Sodium [Unithroid] 25 mcg PO DAILY 90 Days #90 tab 10/16/22 Tamsulosin [Flomax*] 0.4 mg PO DAILY 90 Days #90 cap 10/16/22 - Past Medical/Surgical History Diabetic: Yes -: Hypertension -: Hyperlipidemia -: Aortic aneurysm stent -: Polycystic kidney disease -: Chronic kidney disease -: GERD -: Diabetes mellitus type 2 -: COPD -: AAA repair -: Peritoneal dialysis cath Psychosocial/ Personal History: Patient is , has 2 children and is now retired. - Family History dad -: Diabetes, Kidney disease - Social History Smoking Status: Former smoker Alcohol use: No CD- Drugs: No Caffeine use: No Place of Residence: Home Review of Systems 10-point ROS is otherwise unremarkable General: As per HPI Eyes: Unremarkable ENT: Unremarkable Respiratory: Unremarkable Cardiovascular: Unremarkable Gastrointestinal: As per HPI Genitourinary: As per HPI Musculoskeletal: Unremarkable Integumentary: Unremarkable Neurological: As per HPI Lymphatics: Unremarkable Physical Examination - Vital Signs Blood Pressure: 106/60 - Physical Exam General: Alert, Oriented x3, Cooperative, Other (Volume depleted) HEENT: Atraumatic, Normocephalic Neck: 2+ carotid pulse no bruit Respiratory: Normal air movement Cardiovascular: Regular rate/rhythm, Abnormal S3, Systolic murmur Capillary refill: <2 Seconds Gastrointestinal: Distended, Tenderness (Around waistline and low back) Musculoskeletal: No clubbing, No swelling Integumentary: No rashes, Other (Dry with poor turgor, mild pallor) Neurological: Normal speech, Normal tone, Normal affect, Abnormal strength Lymphatics: No axilla or inguinal lymphadenopathy External genitalia: Deferred Rectal: Deferred - Studies Laboratory Data (last 24 hrs) 03/15/24 03/15/24 14:50 14:50 WBC 9.60 Hgb 11.9 L Hct 36.7 L Plt Count 265 Sodium 137 Potassium 4.8 BUN 67 H Creatinine 10.40 H Glucose 93 Total Bilirubin 0.4 AST < 10 L ALT < 14 L Alkaline Phosphatase 65 Lipase 33 Assessment and Plan - Plan Volume depletion Diverticulitis Peritoneal dialysis Mental IV hydration IV antibiotic Pain control Monitor for perforation/peritonitis Peritoneal dialysis as usual Consult Dr. Velasquez CT abdomen and pelvis -"mild sigmoid diverticulitis" Head of bed at 30 degrees VTE/GI prophylaxis - Advance Directives Does patient have a Living Will: No Does patient have a Durable POA for Healthcare: No - Code Status/Comfort Care Code Status Assessed: Yes (Full) Critical Care: No
[2024-03-15] MEDS: NA CHLORIDE 0.9% 1,000 ML IV SCH (20:41)
[2024-03-15] MEDS: TAMSULOSIN 0.4 MG SR CAP PO SCH (20:42)
[2024-03-15] MEDS: PIPER TAZO 3.375 GM in NA CHLORIDE 0.9% 100 ML IV SCH (20:43)
[2024-03-15] MEDS: IPRATROPIUM BROM 0.5MG/2.5ML NEB SCH (21:00)
[2024-03-15] MEDS: ALBUTEROL 2.5 MG/3 ML NEB SOL NEB SCH (21:00)
[2024-03-15] MEDS: FENTANYL CITR 100 MCG/2 ML IV PRN (22:42)
[2024-03-16] MEDS: HEPARIN 5000 UNIT/ML 1 ML VIAL SQ SCH (02:00)
[2024-03-16 06:14] LABS: Absolute Basophils 0.1 K/uL (0-0.5); Absolute Eosinophils 0.2 K/uL (0-0.5); Absolute Lymphocytes (CBC) 1.7 K/uL (0.7-4.9); Absolute Monocytes 0.6 K/uL (0.1-1.3); Absolute Neutrophil 4.5 K/uL (1.8-8.0); Basophils % 0.8 % (0-1.3); Eosinophils % 3.3 % (0-4.4); Hemoglobin 10.6 g/dL (13.6-17.9); Lymphocytes % 24.2 % (15.3-44.8); MCH 28.9 pg (27.0-35.0); MCHC 32.1 g/dL (32.0-36.0); MCV 90.1 fL (80-100); MPV 7.5 fL (7.6-11.3); Monocytes % 8.3 % (3.3-12.3); Neutrophils % 63.4 % (41.7-73.7); Nucleated Red Blood Cells % 0.1 % (0-0); Platelets 227 thou/uL (152-406); RBC Red Blood Cell Count 3.66 M/uL (4.33-5.43); Red Cell Distribution Width 17.6 % (12.1-15.2)
[2024-03-16 06:34] LABS: Albumin 2.6 g/dL (3.4-5.0); Albumin/Globulin Ratio 0.7 (1.1-1.8); Alkaline Phosphatase 56 U/L (45-117); Anion Gap 12.9 mEq/L (5.0-15.0); BUN Blood Urea Nitrogen 65 mg/dL (7-18); Bicarbonate 23 mEq/L (21-32); Bilirubin Total 0.4 mg/dL (0.2-1.0); Globulin 3.7 g/dL (2.3-3.5); Glomerular Filtration Rate 5 ml/min (=/>90); Glucose Level 102 mg/dL (74-106); HDL Cholesterol 28 mg/dL (40-60); LDL Cholesterol, Calculated 80 mg/dL (<130); LDL Cholesterol,Calc NonReport 80; Magnesium 1.7 mg/dL (1.6-2.4); Phosphorus 7.3 mg/dL (2.5-4.9); Potassium 3.9 mEq/L (3.5-5.1); Protein, Total 6.3 g/dL (6.4-8.2); Sodium Level 139 mEq/L (136-145)
[2024-03-16 06:42] LABS: ALT/SGPT < 14 U/L (16-61); AST/SGOT < 10 U/L (15-37)
[2024-03-16] MEDS: allopurinoL 100 MG TAB PO SCH (09:29)
[2024-03-16] MEDS: CLOPIDOGREL 75 MG TABLET PO SCH (09:29)
[2024-03-16] MEDS: PANTOPRAZOLE 40 MG INJ IVP SCH (09:29)
--- NOTE | 2024-03-16 09:31 | P.PN ---
Date of Service: 03/16/24 SUbjective improving but still with some abd discomfort, Denies N/V, no diarrhea overnight Review of Systems 10-point ROS is otherwise unremarkable General: As per HPI Eyes: Unremarkable ENT: Unremarkable Respiratory: Unremarkable Cardiovascular: Unremarkable Gastrointestinal: As per HPI Genitourinary: As per HPI Musculoskeletal: Unremarkable Integumentary: Unremarkable Neurological: As per HPI Lymphatics: Unremarkable Physical Examination - Vital Signs Blood Pressure: 106/60 - Physical Exam General: Alert, Oriented x3, Cooperative, Other (Volume depleted) HEENT: Atraumatic, Normocephalic Neck: 2+ carotid pulse no bruit Respiratory: Normal air movement Cardiovascular: Regular rate/rhythm, Abnormal S3, Systolic murmur Capillary refill: <2 Seconds Gastrointestinal: Distended, Tenderness (Around waistline and low back) Musculoskeletal: No clubbing, No swelling Integumentary: No rashes, Other (Dry with mildly improved turgor over admission yesterday, mild pallor) Neurological: Normal speech, Normal tone, Normal affect, Abnormal strength Lymphatics: No axilla or inguinal lymphadenopathy External genitalia: Deferred Rectal: Deferred - Studies Laboratory Data (last 24 hrs) 03/15/24 03/15/24 14:50 14:50 WBC 9.60 Hgb 11.9 L Hct 36.7 L Plt Count 265 Sodium 137 Potassium 4.8 BUN 67 H Creatinine 10.40 H Glucose 93 Total Bilirubin 0.4 AST < 10 L ALT < 14 L Alkaline Phosphatase 65 Lipase 33 Assessment and Plan - Plan Volume depletion Diverticulitis Peritoneal dialysis Mental IV hydration IV antibiotic Pain control Monitor for perforation/peritonitis Peritoneal dialysis as usual Consult Dr. Velasquez CT abdomen and pelvis -"mild sigmoid diverticulitis" Head of bed at 30 degrees VTE/GI prophylaxis 03/16/24 Turgor improved. Burning esophageal pain improved, finished PD this am, UF 1107 over [id number]. Pt states with movement his lower abd is still uncomfortable. Will repeat Fentanyl. Continue IV abx. Will try clear liquids at lunch but ice chips only until then - Advance Directives Does patient have a Living Will: No Does patient have a Durable POA for Healthcare: No - Code Status/Comfort Care Code Status Assessed: Yes (Full) Critical Care: No
[2024-03-16] MEDS: NA CHLORIDE 0.9% 1,000 ML IV SCH (11:21)
[2024-03-16] MEDS: POTASSIUM 25 MEQ EFFERV TAB PO ONE (12:10)
[2024-03-16] MEDS: EPOETIN ALFA-EPBX 10,000 UNIT/ML VIAL SQ ONE (12:10)
--- NOTE | 2024-03-16 15:16 | CON ---
Date of Consultation: 03/16/2024 Reason For Consultation: Elevated BUN and creatinine. Fluid management. History Of Present Illness: This is a pleasant 68-year-old gentleman, well known to me from dialysis with significant past medical history of polycystic kidney disease, on dialysis; hypertension; hyper lipidemia; aortic aneurysm, status post stenting; diabetes; COPD; AAA, status post repair; gout; end- stage renal disease, on PD. Follow up with the [facility]. The patient came to the office yes terday feeling weak, fatigued with abdominal pain. No nausea, no vomiting, plus very poor intake, ba rely walking. The patient went to the ER at [facility], found to have colitis. The patient was treat ed in the ER and discharged, but he did not feel better. For that reason, he came to the office. Bl ood pressure was on the lower side. For that reason, the patient was sent to the ER. Started hydrat ion. Started IV antibiotic. The patient today slightly feeling better. Past Medical History: Includes: 1.AAA. 2.COPD. 3.Diabetes complicated with neuropathy, nephropathy. 4.End-stage renal disease, on peritoneal dialysis at [facility]. 5.Gout. 6.Hyperlipidemia. 7.Hypertension. 8.Polycystic kidney disease. 9.GERD. Past Surgical History: Include: 1.Stent for AAA. 2.PD catheter placement. Family History: Positive for polycystic kidney disease, diabetes. Social History: Ex-smoker. Denied alcohol. Denied drugs abuse. Allergies: NO KNOWN DRUGS ALLERGY. Home Medications: Include albuterol, aspirin, magnesium, allopurinol, calcitriol, calcium carbonate, Lasix, pantoprazole, finasteride, levothyroxine. Review of Systems: Head and neck: Has light headache. GI: Has abdominal pain, decreased intake. : No polyuria, no dysuria, no hematuria. Therapy Assistant: Not applicable. Respiratory: No shortness of breath. Cardiovascular: No chest pain. Endocrine: No polydipsia. Skin: No rash. Neuro: Has neuropathy. Musculoskeletal: No joint pain. Physical Examination: Vital Signs: When I saw the patient, blood pressure 93/50, pulse of 66, afebrile. Chest: Clear to auscultation. Heart: S1, S2, regular. Abdomen: Soft, nontender. Extremities: No edema. Pulse intact. Neurologic: Alert. No focality. Laboratory Data: WBC 7.1, hemoglobin 10.6. Sodium 139, potassium 3.9, bicarb 23, BUN 65, creatinine 9.6, hemoglobin 8.6 phosphorus 7.3, albumin 2.6, corrected calcium is 10.1. Urinalysis was negative for infection. Current Medications: The patient on include Flomax, albuterol, promethazine, Plavix, Tylenol, gabape ntin, ipratropium, IV fluid, allopurinol, fentanyl. Assessment And Plan: 1.End-stage renal disease, looked to me on the dry side. I am going to continue PD using yellow bag to avoid ultrafiltration. We will increase IV fluid to 100, discontinue Lasix. Hold other blood pr essure medication and we will monitor. 2.Hypertension, currently on the lower side. Hold diuretic. Start hydration. 3.Colitis. Continue current antibiotic and we will follow up culture, so far all negative. 4.Hypokalemia. I will give oral supplement. 5.Anemia of chronic kidney disease. We will resume ROB and we will follow up. 6.Secondary hyperparathyroid, stable. We will hold on the binder for the time being. HE/LB Voice ID: [id number] Report ID: [id number]
[2024-03-16] MEDS: MELATONIN 3 MG TABLET PO PRN (21:20)
--- NOTE | 2024-03-17 10:03 | P.PN ---
Date of Service: 03/17/24 SUbjective improving but still with some abd discomfort, Denies N/V, no diarrhea overnight Review of Systems 10-point ROS is otherwise unremarkable General: As per HPI Eyes: Unremarkable ENT: Unremarkable Respiratory: Unremarkable Cardiovascular: Unremarkable Gastrointestinal: As per HPI Genitourinary: As per HPI Musculoskeletal: Unremarkable Integumentary: Unremarkable Neurological: Unremarkable Lymphatics: Unremarkable Physical Examination - Vital Signs Blood Pressure: 106/60 - Physical Exam General: Alert, Oriented x3, Cooperative, Other (Volume depleted) HEENT: Atraumatic, Normocephalic Neck: 2+ carotid pulse no bruit Respiratory: Normal air movement Cardiovascular: Regular rate/rhythm, Abnormal S3, Systolic murmur Capillary refill: <2 Seconds Gastrointestinal: Distended, Tenderness (Around waistline and low back) Musculoskeletal: No clubbing, No swelling Integumentary: No rashes, Other (Dry) Neurological: Normal speech, Normal tone, Normal affect, Abnormal strength Lymphatics: No axilla or inguinal lymphadenopathy External genitalia: Deferred Rectal: Deferred - Studies Laboratory Data (last 24 hrs) 03/15/24 03/15/24 14:50 14:50 WBC 9.60 Hgb 11.9 L Hct 36.7 L Plt Count 265 Sodium 137 Potassium 4.8 BUN 67 H Creatinine 10.40 H Glucose 93 Total Bilirubin 0.4 AST < 10 L ALT < 14 L Alkaline Phosphatase 65 Lipase 33 Assessment and Plan - Plan Volume depletion Diverticulitis Peritoneal dialysis Mental IV hydration IV antibiotic -continue Pain control -improved Monitor for perforation/peritonitis -no signs of peritonitis Peritoneal dialysis as usual -diazolate changed per Dr. Eva Velasquez following CT abdomen and pelvis -"mild sigmoid diverticulitis" Head of bed at 30 degrees VTE/GI prophylaxis 03/16/24 Turgor improved. Burning esophageal pain improved, finished PD this am, UF 1107 over [id number]. Pt states with movement his lower abd is still uncomfortable. Will repeat Fentanyl. Continue IV abx. Will try clear liquids at lunch but ice chips only until then 03/17/24 Improving but still appears dry. Will advance diet to full liquids for lunch. Will likely need 1 more day of IV fluids. - Advance Directives Does patient have a Living Will: No Does patient have a Durable POA for Healthcare: No - Code Status/Comfort Care Code Status Assessed: Yes (Full) Critical Care: No <Skylar Faust Den - Last Filed: 03/17/24 10:00> Patient seen and examined, plan of care discussed with Ms. Faust. Patient complaining of mild left lower quadrant abdominal pain. He has been requesting for food. No fever. Continue IV antibiotics for diverticulitis Advance from clear liquid diet diet to full liquid diet. Analgesics as needed. Nephrology is following. Possible discharge in a.m. <faye macedo - Last Filed: 03/17/24 19:06>
[2024-03-17] MEDS ORDERED: EPOETIN ALFA 10,000 UNIT/ML VIAL SQ SCH (13:30)
[2024-03-17] MEDS: EPOETIN ALFA-EPBX 10,000 UNIT/ML VIAL SQ SCH (13:49)
--- NOTE | 2024-03-17 17:32 | PN ---
Date of Progress Note: 03/17/2024 Subjective: The patient was admitted to the hospital with colitis, dehydration. Patient was started on IV antibiotic. The patient is still NPO. To advance diet today. Objective: Vital Signs: Blood pressure 141/68, pulse of 68, afebrile. Chest: Clear to auscultation. Heart: S1, S2. Regular. Abdomen: Soft. Mild tenderness on the suprapubic area and left lower quadrant. No guarding. No re bound. Extremities: No edema. Neurologic: Alert. No focality. Laboratory Data: Hemoglobin 10.7, sodium 139, potassium 3.9, bicarb 24, BUN 65, creatinine 9.6, hemo globin 8.6, phosphorus 7.3, magnesium 1.7, albumin 2.6. Current Medications: The patient on include Zosyn, promethazine, Flomax, Plavix, gabapentin, Tylenol , IV fluid, melatonin, allopurinol. Assessment And Plan: 1.End-stage renal disease, normal volume to the dry side. I am going to continue IV hydration for t he time being and we will continue symptomatic treatment. Given the dehydration, the patient ultrafi ltrating around 500 daily. I am going to go ahead and increase his dwell time by 10 minutes to allow for less ultrafiltration and we will follow up the patient. 2.Hypertension, controlled, optimal. Continue current treatment. 3.Anemia of chronic kidney disease. We will give the patient Retacrit and we will follow up. 4.Secondary hyperparathyroidism. The patient still poor intake. I am going to hold on adding binder for the time being. 5.Colitis. Continue current antibiotic. Follow up with the Primary. ZI Voice ID: [id number] Report ID: [id number]
[2024-03-18 01:38] VITALS: BMI 27.7
[2024-03-18] MEDS: CHOLESTYRAMINE/ASP 4 GM/PKT PO SCH (17:04)
[2024-03-18 17:11] LABS: Hepatitis B surface AG Interp. Nonreactive (Nonreactive)
[2024-03-18 17:12] LABS: Hepatitis B Surface Ab - Quant < 3.10 mIU/mL (<8.0)
[2024-03-18 17:13] LABS: HBsAG Nonreactive Report Report
[2024-03-18] MEDS: ZOLPIDEM TARTRATE 5 MG TABLET PO PRN (22:59)
--- NOTE | 2024-03-19 00:41 | PN ---
Date of Progress Note: 03/18/2024 Subjective: No overnight events. He states he has 4 bowel movements a day. We will start the patie nt on cholestyramine. Objective: Vital Signs: Temperature 97.9, pulse rate 62, blood pressure 131/65. General: Awake, alert, oriented. Not in distress. Neck: Supple. No elevated JVD. Heart: Regular rate and rhythm. Normal S1, S2. Chest: Clear to auscultation bilaterally. No rales or wheezes. Abdomen: Soft, nontender. Extremities: No edema. Laboratory Data: Sodium 139, potassium 3.9, BUN 65, creatinine 9.7. Assessment And Plan: 1.End-stage renal disease, on peritoneal dialysis. Continue daily peritoneal dialysis with __, renal dose medication. 2.Diarrhea. Still has 4 bowel movements. Continue Imodium. We will add cholestyramine. 3.BPH. Continue Flomax. 4.Anemia of chronic disease. Monitor hemoglobin and hematocrit. Hemoglobin more than 10. No need for Epogen at this time. SAKSHI/LB Voice ID: [id number] Report ID: [id number]
[2024-03-19 06:46] LABS: Absolute Basophils 0.1 K/uL (0-0.5); Absolute Eosinophils 0.4 K/uL (0-0.5); Absolute Lymphocytes (CBC) 1.9 K/uL (0.7-4.9); Absolute Monocytes 0.5 K/uL (0.1-1.3); Absolute Neutrophil 4.3 K/uL (1.8-8.0); Basophils % 0.7 % (0-1.3); Eosinophils % 5.1 % (0-4.4); Hematocrit 30.4 % (39.6-49.0); Lymphocytes % 26.4 % (15.3-44.8); MCH 29.6 pg (27.0-35.0); MCHC 32.7 g/dL (32.0-36.0); MCV 90.4 fL (80-100); MPV 7.8 fL (7.6-11.3); Monocytes % 7.5 % (3.3-12.3); Neutrophils % 60.3 % (41.7-73.7); Nucleated Red Blood Cells % 0.1 % (0-0); Platelets 200 thou/uL (152-406); RBC Red Blood Cell Count 3.37 M/uL (4.33-5.43); Red Cell Distribution Width 17.7 % (12.1-15.2)
[2024-03-19 06:53] LABS: Anion Gap 10.9 mEq/L (5.0-15.0); Magnesium 1.5 mg/dL (1.6-2.4); Potassium 3.9 mEq/L (3.5-5.1)
[2024-03-19] MEDS: Magnesium Sulfate 2gm IVPB 2 G/50 ML BAG IV ONE (08:25)
--- NOTE | 2024-03-19 17:30 | P.PN ---
Date of Service: 03/18/24 SUbjective improving but still with some abd discomfort, Denies N/V, no diarrhea overnight Review of Systems 10-point ROS is otherwise unremarkable General: As per HPI Eyes: Unremarkable ENT: Unremarkable Respiratory: Unremarkable Cardiovascular: Unremarkable Gastrointestinal: As per HPI Genitourinary: As per HPI Musculoskeletal: Unremarkable Integumentary: Unremarkable Neurological: Unremarkable Lymphatics: Unremarkable Physical Examination - Vital Signs Blood Pressure: 106/60 - Physical Exam General: Alert, Oriented x3, Cooperative, Other (Volume depleted) HEENT: Atraumatic, Normocephalic Neck: 2+ carotid pulse no bruit Respiratory: Normal air movement Cardiovascular: Regular rate/rhythm, Abnormal S3, Systolic murmur Capillary refill: <2 Seconds Gastrointestinal: Distended, Tenderness (Around waistline and low back) Musculoskeletal: No clubbing, No swelling Integumentary: No rashes, Other (Dry) Neurological: Normal speech, Normal tone, Normal affect, Abnormal strength Lymphatics: No axilla or inguinal lymphadenopathy External genitalia: Deferred Rectal: Deferred - Studies Laboratory Data (last 24 hrs) 03/15/24 03/15/24 14:50 14:50 WBC 9.60 Hgb 11.9 L Hct 36.7 L Plt Count 265 Sodium 137 Potassium 4.8 BUN 67 H Creatinine 10.40 H Glucose 93 Total Bilirubin 0.4 AST < 10 L ALT < 14 L Alkaline Phosphatase 65 Lipase 33 Assessment and Plan - Plan Volume depletion Diverticulitis Peritoneal dialysis Mental IV hydration IV antibiotic -continue Pain control -improved Monitor for perforation/peritonitis -no signs of peritonitis Peritoneal dialysis as usual -diazolate changed per Dr. Eva Velasquez following CT abdomen and pelvis -"mild sigmoid diverticulitis" Head of bed at 30 degrees VTE/GI prophylaxis 03/16/24 Turgor improved. Burning esophageal pain improved, finished PD this am, UF 1107 over [id number]. Pt states with movement his lower abd is still uncomfortable. Will repeat Fentanyl. Continue IV abx. Will try clear liquids at lunch but ice chips only until then 03/17/24 Improving but still appears dry. Will advance diet to full liquids for lunch. Will likely need 1 more day of IV fluids. 03/18/24 advanced diet, had some pain reported. Pt has had some diarrhea. Added Immodium and Cholestyramine, plan dc in 1-2 days - Advance Directives Does patient have a Living Will: No Does patient have a Durable POA for Healthcare: No - Code Status/Comfort Care Code Status Assessed: Yes (Full) Critical Care: No
--- NOTE | 2024-03-19 17:32 | P.PN ---
Date of Service: 03/19/24 SUbjective improving but still with some abd discomfort, Denies N/V, diarrhea overnight and today x 4 Review of Systems 10-point ROS is otherwise unremarkable General: As per HPI Eyes: Unremarkable ENT: Unremarkable Respiratory: Unremarkable Cardiovascular: Unremarkable Gastrointestinal: As per HPI Genitourinary: As per HPI Musculoskeletal: Unremarkable Integumentary: Unremarkable Neurological: Unremarkable Lymphatics: Unremarkable Physical Examination - Vital Signs afebrile - Physical Exam General: Alert, Oriented x3, Cooperative, Other (Volume depleted) HEENT: Atraumatic, Normocephalic Neck: 2+ carotid pulse no bruit Respiratory: Normal air movement Cardiovascular: Regular rate/rhythm, Abnormal S3, Systolic murmur Capillary refill: <2 Seconds Gastrointestinal: Distended, Tenderness (Around waistline and low back) Musculoskeletal: No clubbing, No swelling Integumentary: No rashes, Other (Dry) Neurological: Normal speech, Normal tone, Normal affect, Abnormal strength Lymphatics: No axilla or inguinal lymphadenopathy External genitalia: Deferred Rectal: Deferred - Studies Laboratory Data (last 24 hrs) 03/15/24 03/15/24 14:50 14:50 WBC 9.60 Hgb 11.9 L Hct 36.7 L Plt Count 265 Sodium 137 Potassium 4.8 BUN 67 H Creatinine 10.40 H Glucose 93 Total Bilirubin 0.4 AST < 10 L ALT < 14 L Alkaline Phosphatase 65 Lipase 33 Assessment and Plan - Plan Volume depletion Diverticulitis Peritoneal dialysis Mental IV hydration IV antibiotic -continue Pain control -improved Monitor for perforation/peritonitis -no signs of peritonitis Peritoneal dialysis as usual -diazolate changed per Dr. Eva Velasquez following CT abdomen and pelvis -"mild sigmoid diverticulitis" Head of bed at 30 degrees VTE/GI prophylaxis 03/16/24 Turgor improved. Burning esophageal pain improved, finished PD this am, UF 1107 over [id number]. Pt states with movement his lower abd is still uncomfortable. Will repeat Fentanyl. Continue IV abx. Will try clear liquids at lunch but ice chips only until then 03/17/24 Improving but still appears dry. Will advance diet to full liquids for lunch. Will likely need 1 more day of IV fluids. 03/18/24 advanced diet, had some pain reported. Pt has had some diarrhea. Added Immodium and Cholestyramine, plan dc in 1-2 days 1/18/25 Pt states he feels very weak and tired. Having diarrhea x 4 and does not want to leave (the [facility] hospital) just to have to come back - Advance Directives Does patient have a Living Will: No Does patient have a Durable POA for Healthcare: No - Code Status/Comfort Care Code Status Assessed: Yes (Full) Critical Care: No
[2024-03-20 04:24] VITALS: TEMP 97.5
[2024-03-20 04:27] VITALS: O2SAT 97
[2024-03-20 05:05] LABS: Anion Gap 12.8 mEq/L (5.0-15.0); Magnesium 1.7 mg/dL (1.6-2.4); Potassium 3.8 mEq/L (3.5-5.1)
[2024-03-20] MEDS: MAGNESIUM SULFATE 1 gm IVPB 1 GM/100 ML BAG IV ONE (05:44)
--- NOTE | 2024-03-20 09:30 | P.DS ---
Admission Date: 03/15/24 Discharge Date: 03/20/24 Disposition: ROUTINE DISCHARGE Discharge Condition: GOOD Reason for Admission: Diverticulitis, volume depletion, peritoneal dialysis Consultations: Dr. Velasquez/Vivian Brief History of Present Illness: Mr. Jimenes is a 68-year-old gentleman with a past medical history of polycystic kidney disease for which he receives daily peritoneal dialysis, AAA stented in 2016, hypertension, hyperlipidemia, gout, COPD, and diverticulitis. He quit smoking about 20 years ago and has been on the transplant list at [place] for quite some time. He states he got a call from [facility] today 03/15/2024 to enter their transplant program on the of this month. Mr. Jimenes complains of a 1 week history of diarrhea, malaise, low back pain, nausea, and anorexia. He made an appointment to see his change release manager, Dr. Velasquez, and was referred to the emergency department for admission for IV antibiotics. At bedside Mr. Jimenes appears volume depleted, with poor turgor, and generalized malaise. His blood pressure is 106/60 and he complains of burning epigastric pain with reflux. We will admit him for gentle hydration, IV antibiotics for diverticulitis/gastrointestinal infection, and symptom management. His went to get the peritoneal dialysis supplies and they will complete nightly PD. Hospital Course: During this hospitalization Mr. Jimenes was gently hydrated, diuretics were reduced, and we advanced his diet slowly. He does continue to have some back pain and diarrhea; however, he is feeling better and wishes to go home with continued oral antibiotics, Imodium, and cholestyramine to control symptoms. He will follow-up with Dr. Kelly next week. Vital Signs/Physical Exam: Temp Pulse Resp BP Pulse Ox 97.5 F 58 16 150/77 H 97 03/20/24 04:00 03/20/24 04:00 03/20/24 04:00 03/20/24 04:00 03/20/24 04:00 General: Alert, In no apparent distress, Oriented x3 HEENT: Atraumatic, Normocephalic Neck: Supple Respiratory: Clear to auscultation bilaterally, Normal air movement Cardiovascular: Normal pulses, Regular rate/rhythm, Normal S1 S2 Capillary refill: <2 Seconds Gastrointestinal: Soft and benign Musculoskeletal: No clubbing, No swelling Integumentary: Other (healing ecchymosis to left flank and posterior upper arm s/p fall last week) Neurological: Normal speech, Normal tone, Normal affect Lymphatics: No axilla or inguinal lymphadenopathy External genitalia: Deferred Rectal: Deferred Laboratory Data at Discharge: WBC 7.10 thou/uL (4.3-10.9) 03/19/24 06:03 Hgb 10.0 g/dL (13.6-17.9) L 03/19/24 06:03 Hct 30.4 % (39.6-49.0) L 03/19/24 06:03 Plt Count 200 thou/uL (152-406) 03/19/24 06:03 Sodium 140 mEq/L (136-145) 03/20/24 04:04 Potassium 3.8 mEq/L (3.5-5.1) 03/20/24 04:04 BUN 35 mg/dL (7-18) H 03/20/24 04:04 Creatinine 9.01 mg/dL (0.70-1.30) H 03/20/24 04:04 Glucose 97 mg/dL (74-106) 03/20/24 04:04 Phosphorus 7.3 mg/dL (2.5-4.9) H 03/16/24 06:00 Magnesium 1.7 mg/dL (1.6-2.4) 03/20/24 04:04 Total Bilirubin 0.4 mg/dL (0.2-1.0) 03/16/24 06:00 AST < 10 U/L (15-37) L 03/16/24 06:00 ALT < 14 U/L (16-61) L 03/16/24 06:00 Alkaline Phosphatase 56 U/L (45-117) 03/16/24 06:00 Triglycerides 160 mg/dL (<150) H 03/16/24 06:00 Cholesterol 140 mg/dL (<200) 03/16/24 06:00 HDL Cholesterol 28 mg/dL (40-60) L 03/16/24 06:00 Cholesterol/HDL Ratio 5.00 03/16/24 06:00 Lipase 33 U/L (13-75) 03/15/24 14:50 Home Medications: Albuterol Sulfate [Proair Respiclick] 90 mcg IH PRN PRN 06/29/20 Aspirin [Aspirin EC 81 MG] 81 mg PO DAILY 06/29/20 Magnesium Oxide 400 mg PO DAILY 06/29/20 Allopurinol 100 mg PO DAILY 10/14/22 Calcitrol [Rocaltrol*] 0.5 mcg PO DAILY 10/14/22 Calcium Carbonate [Tums Regular*] 500 mg PO ACS 10/14/22 Cyclobenzaprine [Flexeril*] 10 mg PO DAILY 10/14/22 Hydralazine HCl 25 mg PO BID 10/14/22 Pantoprazole [Protonix Tab*] 40 mg PO BID 10/14/22 Finasteride [Proscar*] 5 mg PO DAILY 90 Days #90 tab 10/16/22 Levothyroxine Sodium [Unithroid] 25 mcg PO DAILY 90 Days #90 tab 10/16/22 Tamsulosin [Flomax*] 0.4 mg PO DAILY 90 Days #90 cap 10/16/22 Cholestyramine (with Sugar) [Cholestyramine Packet] 4 gm PO BIDWM #60 ashley 03/20/24 Furosemide [Lasix] 40 mg PO DAILY #90 tab 03/20/24 Loperamide HCl [Imodium A-D] 2 mg PO Q8HP PRN #1 box 03/20/24 metroNIDAZOLE [Flagyl] 500 mg PO Q8H #15 tab 03/20/24 New Medications: Cholestyramine (with Sugar) [Cholestyramine Packet] 4 gm PO BIDWM #60 ashley metroNIDAZOLE [Flagyl] 500 mg PO Q8H #15 tab Loperamide HCl [Imodium A-D] 2 mg PO Q8HP PRN #1 box PRN Reason: Diarrhea Furosemide [Lasix] 40 mg PO DAILY #90 tab Physician Discharge Instructions: Mr. Jimenes is a 68-year-old gentleman with a past medical history of polycystic kidney disease for which he receives daily peritoneal dialysis, AAA stented in 2015, hypertension, hyperlipidemia, gout, COPD, and diverticulitis. He quit smoking about 20 years ago and has been on the transplant list at [place] for [facility] some time. He states he got a call from [facility] today 03/15/2024 to enter their transplant program on the of this month. Mr. Jimenes complains of a 1 week history of diarrhea, malaise, low back pain, nausea, and anorexia. He made an appointment to see his change release manager, Dr. Velasquez, and was referred to the emergency department for admission for IV antibiotics. At bedside Mr. Jimenes appears volume depleted, with poor turgor, and generalized malaise. His blood pressure is 106/60 and he complains of burning epigastric pain with reflux. We will admit him for gentle hydration, IV antibiotics for diverticulitis/gastrointestinal infection, and symptom management. His went to get the peritoneal dialysis supplies and they will complete nightly PD. During this hospitalization Mr. Jimenes was gently hydrated, diuretics were reduced, and we advanced his diet slowly. He does continue to have some back pain and diarrhea; however, he is feeling better and wishes to go home with ann thomasued oral antibiotics, Imodium, and cholestyramine to control symptoms. He will follow-up with Dr. Kelly next week. Diet: Renal Activity: Fall precautions Followup: NONE,NONE [Primary Care Provider] - Ned Velasquez MD [ACTIVE - CAN ADMIT] -
[2024-03-20 09:42] VITALS: BP 143/75
== END 2024-03-20 10:45 | disposition home or self-care (01) | DRG 391 ==
LOC: ER 11:29 → ERHOLD 17:09 → 2ND 18:59
PROVIDERS: ADMIT Internal Medicine; ATTEND Internal Medicine
PROC: 3E1M39Z Irrigation of Peritoneal Cavity using Dialysate, Percutaneous Approach (ICD-10-PCS; principal; 2024-03-16)
DX: K57.32 Diverticulitis of large intestine without perforation or abscess without bleeding (principal); N18.6 End stage renal disease; A09 Infectious gastroenteritis and colitis, unspecified; I12.0 Hypertensive chronic kidney disease with stage 5 chronic kidney disease or end stage renal disease; N25.81 Secondary hyperparathyroidism of renal origin; E11.22 Type 2 diabetes mellitus with diabetic chronic kidney disease; E11.40 Type 2 diabetes mellitus with diabetic neuropathy, unspecified; D63.1 Anemia in chronic kidney disease; E86.9 Volume depletion, unspecified; E86.0 Dehydration; E87.6 Hypokalemia; M10.9 Gout, unspecified; E78.00 Pure hypercholesterolemia, unspecified; N40.0 Benign prostatic hyperplasia without lower urinary tract symptoms; K21.9 Gastro-esophageal reflux disease without esophagitis; J44.9 Chronic obstructive pulmonary disease, unspecified; Z79.890 Hormone replacement therapy; Z79.82 Long term (current) use of aspirin; Z79.02 Long term (current) use of antithrombotics/antiplatelets; Z79.899 Other long term (current) drug therapy; Z99.2 Dependence on renal dialysis; Z87.891 Personal history of nicotine dependence; Z76.82 Awaiting organ transplant status
CPT/HCPCS: 36415; 74176; 80048; 80053; 80061; 83690; 83735; 84100; 84439; 85025; 86706; 87040; 87340; 94640; 94760; 96365; 96375; 99285; J1644; J2405; J2470; J2543; J3010; J3475; J7030; J7613; J7644; Q4081; Q5106

== ENCOUNTER 2024-10-03 20:49 | Inpatient (IN) | payer OTHER ==
[2024-10-03] MEDS ORDERED: NA CHLORIDE 0.9% 1,000 ML ONE (21:07)
[2024-10-03 21:13] LABS: Absolute Lymphocytes (CBC) 0.8 K/uL (0.7-4.9); Hematocrit 32.9 % (39.6-49.0); Hemoglobin 10.8 g/dL (13.6-17.9); MCH 31.0 pg (27.0-35.0); MCHC 32.9 g/dL (32.0-36.0); MCV 94.2 fL (80-100); MPV 7.9 fL (7.6-11.3); Nucleated RBC Absolute Count 0.0 (0-0); Nucleated Red Blood Cells % 0.1 % (0-0); RBC Red Blood Cell Count 3.49 M/uL (4.33-5.43); White Blood Count 10.40 thou/uL (4.3-10.9)
[2024-10-03 21:19] LABS: PT Prothrombin Time 13.9 SECONDS (10-13.0); Protime INR 1.24
[2024-10-03 21:35] LABS: Albumin 2.7 g/dL (3.4-5.0); Albumin/Globulin Ratio 0.7 (1.1-1.8); Alkaline Phosphatase 68 U/L (45-117); Anion Gap 13.0 mEq/L (5.0-15.0); BUN Blood Urea Nitrogen 18 mg/dL (7-18); Bilirubin Indirect, Calculated 0.5 mg/dL (0.2-0.8); Globulin 4.0 g/dL (2.3-3.5); Glucose Level 85 mg/dL (74-106); Lipase 7 U/L (13-75); Magnesium 1.7 mg/dL (1.6-2.4); NT PRO-BNP 8614 pg/mL (<125); Potassium 4.0 mEq/L (3.5-5.1); Troponin High Sensitivity 19.8 pg/mL (<58.9)
[2024-10-03 21:38] LABS: ALT/SGPT < 14 U/L (16-61); AST/SGOT < 10 U/L (15-37)
--- NOTE | 2024-10-03 22:15 | ER ---
Nurse's Notes [facility] Name: Stan Jimenes Age: 69 yrs Sex: Male : 1955 Arrival Date: 10/03/2024 Time: 20:49 Bed 3 Private MD: Diagnosis: Altered mental status, unspecified;COPD/ Chronic obstructive pulmonary disease with (acute) exacerbation;Dependence on renal dialysis;Fracture of clavicle Presentation: 10/03 20:50 Chief complaint: Patient states: PT SENT FROM HOME PER FAMILLY..."PT NOT HIMSELF". PT br2 WAS HERE YESTERDAY WITH WITH A FX LEFT CLAVICLE. PT IS ORIENTED TO PERSON AND PLACE ONLY. Coronavirus screen: Client denies travel out of the [place] in the last 14 days. Ebola Screen: Patient denies exposure to infectious person. Initial Sepsis Screen: Does the patient meet any 2 criteria? No. Patient's initial sepsis screen is negative. Does the patient have a suspected source of infection? No. Patient's initial sepsis screen is negative. Risk Assessment: Do you want to hurt yourself or someone else? Patient reports no desire to harm self or others. Onset of symptoms is unknown. 20:50 Method Of Arrival: EMS: [facility] br2 20:50 Acuity: CHAVA 3 br2 Triage Assessment: 20:55 General: Appears uncomfortable, Behavior is cooperative, anxious. Pain: Denies pain. br2 Historical: - Allergies: 20:55 Iodine; br2 - PMHx: 20:55 AAA; POLYCYSTIC KIDNEY DISEASE; Aneurysm; Cerebrovascular accident; COPD; Dialysis; br2 Dialysis; Gout; High Cholesterol; Hypertension; PERITONEAL DIALYSIS (Unknown); - PSHx: 20:55 Unable to Obtain; br2 - Immunization history:: Adult Immunizations unknown. - Infectious Disease History:: Denies. - Social history:: Smoking status: unknown. Screenin:57 [facility] ED Fall Risk Assessment (Adult) History of falling in the last 3 months, bm8 including since admission Yes- physiologic fall (2 pts) Confusion or Disorientation Yes (5 pts) Intoxicated or Sedated No (0 pts) Impaired Gait Yes (1 pt) Mobility Assist Device Used Yes (1 pt) Altered Elimination Yes (1 pt) Score/Fall Risk Level 3 or more points = High Risk Oriented to surroundings, Maintained a safe environment, Educated pt \\T\\ family on fall prevention, incl call for assistance when getting out of bed, Assessed \\T\\ reinforced patient's understanding of fall precautions, Hourly rounding (assess needs \\T\\ fall precautionary measures) done, Used ambulatory aids as needed (educated on \\T\\ assisted with), Used gait belt as appropriate Implemented a Fall Risk Plan of Care, Apply high fall risk patient identification: yellow non skid footwear/ fall signage. Abuse screen: Denies threats or abuse. Nutritional screening: No deficits noted. Tuberculosis screening: No symptoms or risk factors identified. Assessment: 20:57 General: Appears in no apparent distress. uncomfortable, Behavior is cooperative. Pain: bm8 Complains of pain in left supraclavicular area, left clavicle and anterior aspect of left shoulder Pain currently is 5 out of 10 on a pain scale. Quality of pain is described as aching, throbbing. Neuro: Level of Consciousness is awake, alert, obeys commands, confused, Oriented to person, place, situation, Appropriate for age. Cardiovascular: Denies chest pain, Heart tones S1 S2 present Capillary refill < 3 seconds fingers toes Patient's skin is warm and dry. Respiratory: Airway is patent Respiratory effort is even, unlabored, Respiratory pattern is regular, symmetrical, Breath sounds with rhonchi bilaterally. GI: No signs and/or symptoms were reported involving the gastrointestinal system. : No deficits noted. Reports not inability to void but having trouble voiding. Pt has Ortega cath put in place yesterday. evidence of urine in bag but empty at time of arrival. EENT: No signs and/or symptoms were reported regarding the EENT system. EENT: Eyes pinpoint constricted non reactive to light. Derm: Wound noted right antecubital area Wound is skin tear to right ac area. Musculoskeletal: Reports pain in left supraclavicular area, left clavicle and anterior aspect of left shoulder Pain is 5 out of 10 on a pain scale. 22:41 Reassessment: Patient appears in no apparent distress at this time. Patient and/or bm8 family updated on plan of care and expected duration. Pain level reassessed. Patient is alert, oriented x 3, equal unlabored respirations, skin warm/dry/pink. Patient states symptoms have improved. Respiratory: Airway is patent Respiratory effort is even, shallow, Respiratory pattern is regular, symmetrical, Breath sounds with rhonchi bilaterally. 10/04 00:53 Reassessment: Patient appears in no apparent distress at this time. Patient and/or bm8 family updated on plan of care and expected duration. Pain level reassessed. Patient is alert, oriented x 3, equal unlabored respirations, skin warm/dry/pink. Patient states feeling better. Patient states symptoms have improved. Vital Signs: 10/03 20:50 BP 129 / 72; Pulse 89; Resp 18; Temp 97.3(O); Pulse Ox 96% on R/A; Weight 93.44 kg; br2 22:41 BP 132 / 68; Pulse 82; Resp 23; Temp 97.3; Pulse Ox 98% ; Pain 5/10; bm8 10/04 00:53 BP 118 / 62; Pulse 81; Resp 18; Temp 97.3; Pulse Ox 98% ; Pain 6/10; bm8 22:41 Pain Scale: Adult bm8 10/04 00:53 Pain Scale: Adult 8 Alonzo Coma Score: 10/03 20:57 Eye Response: spontaneous(4). Motor Response: obeys commands(6). Verbal Response: bm8 oriented(5). Total: 15. 22:41 Eye Response: spontaneous(4). Motor Response: obeys commands(6). Verbal Response: bm8 oriented(5). Total: 15. 10/04 00:53 Eye Response: spontaneous(4). Motor Response: obeys commands(6). Verbal Response: bm8 oriented(5). Total: 15. ED Course: 10/03 20:50 Patient arrived in ED. br2 20:53 Jimmie Holland MD is Attending Physician. mendez 20:55 Triage completed. br2 20:55 Arm band placed on right wrist. br2 20:57 Rod Pruitt, RN is Primary Nurse. bm8 20:57 Patient has correct armband on for positive identification. Bed in low position. Call bm8 light in reach. Side rails up X 1. Adult w/ patient. Client placed on continuous cardiac and pulse oximetry monitoring. NIBP monitoring applied. case monitor on. Pulse ox on. NIBP on. Door closed. Noise minimized. Warm blanket given. Pillow given. Verbal reassurance given. Head of bed elevated. 20:57 Maintain EMS IV. Good blood return noted. Site clean \\T\\ dry. Gauge \\T\\ site: 20 RIGHT br 2 WRIST. 20:57 No provider procedures requiring assistance completed. Initial lab(s) drawn, by me, bm8 sent to lab. EKG done, by ED staff, reviewed by Jimmie Holland MD. Patient maintains SpO2 saturation greater than 95% on room air. 21:31 CT Head Brain wo Cont In Process Unspecified. EDMS 21:44 XRAY Chest (1 view) In Process Unspecified. EDMS 22:12 Erasto Ya MD is Hospitalizing Provider. [facility] 22:41 Provided Education on: need for admission. bm8 22:41 Patient admitted, IV remains in place. bm8 Administered Medications: 22:10 Discontinued: ns 0.9% 1000 ml IV at 1000 ml once; to be given as a bolus over 60 minutescha 10/02 23:55 Drug: Magnesium Sulfate IVPB 2 grams IVPB once over 2 hrs Route: IVPB; Infused Over: 2 ss12 hrs; Site: right antecubital; 10/04 00:54 Follow up: Response: No adverse reaction; IV Status: Completed infusion bm8 10/03 21:12 Drug: NS 0.9% IV 1000 ml IV at 1000 ml once; to be given as a bolus over 60 minutes bm8 Route: IV; Rate: 1000 ml; Site: right forearm; 22:44 Follow up: Response: No adverse reaction; IV Status: Completed infusion bm8 22:29 Drug: Levalbuterol Inhalation 2.5 mg Inhalation once Route: Inhalation; bm8 10/04 00:55 Follow up: Response: No adverse reaction bm8 10/03 22:29 Drug: Ipratropium Inhalation Aerosol 0.5 mg Inhalation once Route: Inhalation; bm8 10/04 00:55 Follow up: Response: No adverse reaction bm8 10/03 22:30 Drug: MethylPrednisoLONE IVP 125 mg IVP once Route: IVP; Site: right wrist; ss12 22:44 Follow up: Response: No adverse reaction bm8 23:45 Drug: Levalbuterol Inhalation 2.5 mg Inhalation once Route: Inhalation; ss12 10/04 00:54 Follow up: Response: No adverse reaction bm8 Medication: 10/03 20:57 VIS not applicable for this client. bm8 Outcome: 22:14 Decision to Hospitalize by Provider. mendez 10/04 00:53 Admitted to Tele accompanied by tech, family with patient, via stretcher, room 410, bm8 with chart, Condition: stable Instructed on the need for admit, Demonstrated understanding of instructions, follow-up care, medications, 00:57 Patient left the ED. bm8 Signatures: Dispatcher [employer] EDJimmie Chand MD MD cha McDonald, Brad, RN RN bm8 Lisa Peter, RN RN br2 Chilango Kee, RN RN ss12 Corrections: (The following items were deleted from the chart) 10/03 20:56 20:55 PSHx: Appendectomy; br2 br2 20:56 20:55 PSHx: section; br2 br2 20:56 20:55 PSHx: Coronary Angioplasty; br2 br2 20:56 20:55 PSHx: Coronary artery bypass graft; br2 br2
--- NOTE | 2024-10-03 22:15 | EDPHYS ---
Physician Documentation [facility] Name: Stan Jimenes Age: 69 yrs Sex: Male : 1955 Arrival Date: 10/03/2024 Time: 20:49 Bed 3 Private MD: ED Physician Jimmie Holland HPI: 10/03 22:00 This 69 yrs old Male presents to ER via EMS with unknown complaint. [facility] 22:00 This 69 yrs old Male presents to ER via EMS with complaints of WEAK , SOB, SP mendez FALL. 22:00 WEAK , SOB. Severity of symptoms: At their worst the symptoms were moderate in the [facility] emergency department the symptoms are unchanged. The patient has experienced similar episodes in the past, several times. Historical: - Allergies: 20:55 Iodine; br2 - PMHx: 20:55 AAA; POLYCYSTIC KIDNEY DISEASE; Aneurysm; Cerebrovascular accident; COPD; Dialysis; br2 Dialysis; Gout; High Cholesterol; Hypertension; PERITONEAL DIALYSIS (Unknown); - PSHx: 20:55 Unable to Obtain; br2 - Immunization history:: Adult Immunizations unknown. - Infectious Disease History:: Denies. - Social history:: Smoking status: unknown. ROS: 22:03 Constitutional: Negative for fever, chills, and weight loss, Eyes: Negative for injury, mendez pain, redness, and discharge, ENT: Negative for injury, pain, and discharge, Neck: Negative for injury, pain, and swelling, Cardiovascular: Negative for chest pain, palpitations, and edema, Abdomen/GI: Negative for abdominal pain, nausea, vomiting, diarrhea, and constipation, Back: Negative for injury and pain, : Negative for injury, bleeding, discharge, and swelling, MS/Extremity: Negative for injury and deformity, Skin: Negative for injury, rash, and discoloration, Neuro: Negative for headache, weakness, numbness, tingling, and seizure, Psych: Negative for depression, anxiety, suicide ideation, homicidal ideation, and hallucinations, Allergy/Immunology: Negative for hives, rash, and allergies, Endocrine: Negative for neck swelling, polydipsia, polyuria, polyphagia, and marked weight changes, 22:03 Respiratory: Positive for cough, shortness of breath, wheezing, expiratory, 22:03 Neuro: Positive for altered mental status, weakness, Exam: 21:27 ECG was reviewed by the Attending Physician. mendez 22:03 Constitutional: This is a well developed, well nourished patient who is awake, alert, mendez and in no acute distress. Head/Face: Normocephalic, atraumatic. Eyes: Pupils equal round and reactive to light, extra-ocular motions intact. Lids and lashes normal. Conjunctiva and sclera are non-icteric and not injected. Cornea within normal limits. Periorbital areas with no swelling, redness, or edema. ENT: Nares patent. No nasal discharge, no septal abnormalities noted. Tympanic membranes are normal and external auditory canals are clear. Oropharynx with no redness, swelling, or masses, exudates, or evidence of obstruction, uvula midline. Mucous membranes moist. Neck: Trachea midline, no thyromegaly or masses palpated, and no cervical lymphadenopathy. Supple, full range of motion without nuchal rigidity, or vertebral point tenderness. No Meningismus. Chest/axilla: Normal chest wall appearance and motion. Nontender with no deformity. No lesions are appreciated. Cardiovascular: Regular rate and rhythm with a normal S1 and S2. No gallops, murmurs, or rubs. Normal PMI, no JVD. No pulse deficits. Abdomen/GI: Soft, non-tender, with normal bowel sounds. No distension or tympany. No guarding or rebound. No evidence of tenderness throughout. Back: No spinal tenderness. No costovertebral tenderness. Full range of motion. Male : Normal genitalia with no discharge or lesions. Skin: Warm, dry with normal turgor. Normal color with no rashes, no lesions, and no evidence of cellulitis. MS/ Extremity: Pulses equal, no cyanosis. Neurovascular intact. Full, normal range of motion., bilateral aka Neuro: Awake and alert, GCS 15, oriented to person, place, time, and situation. Cranial nerves II-XII grossly intact. Motor strength 5/5 in all extremities. Sensory grossly intact. Cerebellar exam normal. Normal gait. Psych: Awake, alert, with orientation to person, place and time. Behavior, mood, and affect are within normal limits. 22:03 Respiratory: the patient does not display signs of respiratory distress, Respirations: normal, Breath sounds: decreased breath sounds, that are mild, rhonchi, that are mild, stridor, is not appreciated, + upper airway congestion. 22:03 Musculoskeletal/extremity: ROM: no acute changes, Circulation is intact in all extremities. Sensation intact. Compartment Syndrome exam of affected extremity: is normal. DVT Exam: No signs of deep vein thrombosis. no pain, no swelling, no tenderness, negative Homans' sign noted on exam, no appreciated bluish discoloration, no erythema, no increased warmth, Vital Signs: 20:50 BP 129 / 72; Pulse 89; Resp 18; Temp 97.3(O); Pulse Ox 96% on R/A; Weight 93.44 kg; br2 22:41 BP 132 / 68; Pulse 82; Resp 23; Temp 97.3; Pulse Ox 98% ; Pain 5/10; bm8 10/04 00:53 BP 118 / 62; Pulse 81; Resp 18; Temp 97.3; Pulse Ox 98% ; Pain 6/10; bm8 22:41 Pain Scale: Adult bm8 10/04 00:53 Pain Scale: Adult bm8 Alonzo Coma Score: 10/03 20:57 Eye Response: spontaneous(4). Motor Response: obeys commands(6). Verbal Response: bm8 oriented(5). Total: 15. 22:41 Eye Response: spontaneous(4). Motor Response: obeys commands(6). Verbal Response: bm8 oriented(5). Total: 15. 10/04 00:53 Eye Response: spontaneous(4). Motor Response: obeys commands(6). Verbal Response: bm8 oriented(5). Total: 15. MDM: 10/03 20:53 Medical Screening Exam initiated mendez 22:05 Data reviewed: vital signs, nurses notes, lab test result(s), EKG, radiologic studies, mendez ultrasound. Independent interpretation of the following test(s) in the Emergency Department EKG: See my EKG interpretation above. Test considered but Not performed: CT: NO CT CHEST. 10/03 20:55 Order name: Basic Metabolic Panel; Complete Time: 21:57 [facility] 10/03 20:55 Order name: CBC with Diff; Complete Time: 21:57 [facility] 10/03 20:55 Order name: LFT's; Complete Time: 21:57 [facility] 10/03 20:55 Order name: Magnesium; Complete Time: 21:57 [facility] 10/03 20:55 Order name: NT PRO-BNP; Complete Time: 21:57 [facility] 10/03 20:55 Order name: PT-INR; Complete Time: 21:57 [facility] 10/03 20:55 Order name: Troponin HS; Complete Time: 21:57 [facility] 10/03 20:55 Order name: Lipase; Complete Time: 21:57 [facility] 10/03 20:55 Order name: UA Rfx Rock Cult if indicated; Complete Time: 23:42 [facility] 10/03 22:46 Order name: Urine Culture EDMS 10/04 00:03 Order name: Comprehensive Metabolic Panel EDMS 10/04 00:03 Order name: Comprehensive Metabolic Panel EDMS 10/04 00:03 Order name: Comprehensive Metabolic Panel EDMS 10/04 00:03 Order name: Comprehensive Metabolic Panel EDMS 10/04 00:03 Order name: Magnesium EDMS 10/04 00:03 Order name: Magnesium EDMS 10/04 00:03 Order name: Magnesium EDMS 10/04 00:03 Order name: Magnesium EDMS 10/04 00:03 Order name: Sputum Culture EDMS 10/04 00:04 Order name: CBC with Automated Diff EDMS 10/04 00:04 Order name: CBC with Automated Diff EDMS 10/04 00:04 Order name: CBC with Automated Diff EDMS 08 00:04 Order name: CBC with Automated Diff EDMS 10/03 20:55 Order name: XRAY Chest (1 view) [facility] 10/03 20:55 Order name: CT Head Brain wo Cont [facility] 10/03 20:55 Order name: Cardiac monitoring; Complete Time: 20:57 [facility] 10/03 20:55 Order name: EKG - Nurse/Tech; Complete Time: 20:57 [facility] 10/03 20:55 Order name: IV Saline Lock; Complete Time: 20:57 [facility] 10/03 20:55 Order name: Labs collected and sent; Complete Time: 20:57 [facility] 10/03 20:55 Order name: O2 Per Protocol; Complete Time: 20:57 [facility] 10/03 20:55 Order name: O2 Sat Monitoring; Complete Time: 20:57 [facility] EC:27 Rate is 82 beats/min. Rhythm is regular. QRS [place] is Normal. MT interval is prolonged mendez at 268 msec. QRS interval is normal. QT interval is normal. No Q waves. T waves are Normal. No ST changes noted. Clinical impression: NSR w/ Non-specific ST/T Changes, 1st degree heart block, and No evidence of ischemia. Interpreted by me. Reviewed by me. Administered Medications: 22:10 Discontinued: ns 0.9% 1000 ml IV at 1000 ml once; to be given as a bolus over 60 minutescha 10/02 23:55 Drug: Magnesium Sulfate IVPB 2 grams IVPB once over 2 hrs Route: IVPB; Infused Over: 2 ss12 hrs; Site: right antecubital; 10/04 00:54 Follow up: Response: No adverse reaction; IV Status: Completed infusion 8 10/03 21:12 Drug: NS 0.9% IV 1000 ml IV at 1000 ml once; to be given as a bolus over 60 minutes bm8 Route: IV; Rate: 1000 ml; Site: right forearm; 22:44 Follow up: Response: No adverse reaction; IV Status: Completed infusion bm8 22:29 Drug: Levalbuterol Inhalation 2.5 mg Inhalation once Route: Inhalation; bm8 10/04 00:55 Follow up: Response: No adverse reaction 8 10/03 22:29 Drug: Ipratropium Inhalation Aerosol 0.5 mg Inhalation once Route: Inhalation; bm8 10/04 00:55 Follow up: Response: No adverse reaction 8 10/03 22:30 Drug: MethylPrednisoLONE IVP 125 mg IVP once Route: IVP; Site: right wrist; ss12 22:44 Follow up: Response: No adverse reaction bm8 23:45 Drug: Levalbuterol Inhalation 2.5 mg Inhalation once Route: Inhalation; ss12 10/04 00:54 Follow up: Response: No adverse reaction bm8 Disposition Summary: 10/03/24 22:14 Hospitalization Ordered Notes: Hospitalization Status: Observation mendez Provider: Erasto Ya cha Location: Telemetry/MedSurg (Inpatient) mendez Condition: Fair mendez Problem: new mendez Symptoms: have improved mendez Bed/Room Type: Standard mendez Room Assignment: 410(10/04/24 00:07) vk Diagnosis - Altered mental status, unspecified mendez - COPD/ Chronic obstructive pulmonary disease with (acute) exacerbation mendez - Dependence on renal dialysis mendez - Fracture of clavicle mendez Forms: - Medication Reconciliation Form mendez - SBAR form mendez - Leadership Thank You Letter mendez Signatures: Dispatcher [employer] Jimmie Rosales MD MD cha Kruse, Vivian vk McDonald, Brad, RN RN bm8 Lisa Peter, RN RN br2 Chilango Kee, RN RN ss12 Corrections: (The following items were deleted from the chart) 10/03 20:55 20:55 BASIC METABOLIC PANEL+C.LAB.BRZ ordered. EDMS EDMS 20:55 20:55 CBC+H.LAB.BRZ ordered. EDMS EDMS 20:55 20:55 HEPATIC FUNCTION+C.LAB.BRZ ordered. EDMS EDMS 20:55 20:55 MAGNESIUM+C.LAB.BRZ ordered. EDMS EDMS 20:55 20:55 PROBNP+C.LAB.BRZ ordered. EDMS EDMS 20:55 20:55 PROTIME (+INR)+COAG.LAB.BRZ ordered. EDMS EDMS 20:55 20:55 Troponin High Sensitivity+C.LAB.BRZ ordered. EDMS EDMS 20:55 20:55 LIPASE+C.LAB.BRZ ordered. EDMS EDMS 20:55 20:55 UA Rfx Rock Cult if indicated+U.LAB.BRZ ordered. EDMS EDMS 20:55 20:55 Chest Single View+RAD.RAD.BRZ ordered. EDMS EDMS 20:56 20:56 Head Brain Wo Cont+CT.RAD.BRZ ordered. EDMS EDMS 20:56 20:55 PSHx: Appendectomy; br2 br2 20:56 20:55 PSHx: section; br2 br2 20:56 20:55 PSHx: Coronary Angioplasty; br2 br2 20:56 20:55 PSHx: Coronary artery bypass graft; br2 br2 10/04 00:07 10/03 22:14 mendez vk
[2024-10-03] MEDS ORDERED: LEVALBUTEROL 1.25 MG/3 ML NEB ONE ×2 (22:28→23:52)
[2024-10-03] MEDS ORDERED: IPRATROPIUM BROM 0.5MG/2.5ML ONE (22:28)
[2024-10-03] MEDS ORDERED: METHYLPREDNISOLONE 125 MG INJ ONE (22:28)
[2024-10-03 22:40] LABS: Sqamous Epithelial None Seen /HPF (None Seen); Urine Culture Reflex Order REFLEXED; Urine Microscopic Reflex YN ORDER UMIC
[2024-10-03] MEDS ORDERED: Magnesium Sulfate 2gm IVPB 2 G/50 ML BAG IV ONE (23:52)
[2024-10-03] MEDS ORDERED: MORPHINE 4 MG/ML SYR ONE (23:53)
[2024-10-04] MEDS: HEPARIN 5000 UNIT/ML 1 ML VIAL SQ SCH (02:06)
[2024-10-04] MEDS: IPRATROPIUM BROM 0.5MG/2.5ML NEB SCH (02:55)
[2024-10-04] MEDS: ALBUTEROL 2.5 MG/3 ML NEB SOL NEB SCH (02:55)
[2024-10-04] MEDS: MELATONIN 3 MG TABLET PO PRN (02:58)
[2024-10-04 04:40] LABS: Absolute Lymphocytes (CBC) 0.3 K/uL (0.7-4.9); Hematocrit 31.1 % (39.6-49.0); Hemoglobin 10.4 g/dL (13.6-17.9); MCH 31.3 pg (27.0-35.0); MCHC 33.4 g/dL (32.0-36.0); MCV 93.6 fL (80-100); MPV 7.9 fL (7.6-11.3); Nucleated RBC Absolute Count 0.0 (0-0); Nucleated Red Blood Cells % 0.0 % (0-0); RBC Red Blood Cell Count 3.32 M/uL (4.33-5.43); White Blood Count 8.00 thou/uL (4.3-10.9)
[2024-10-04 04:53] LABS: Albumin 2.6 g/dL (3.4-5.0); Albumin/Globulin Ratio 0.7 (1.1-1.8); Alkaline Phosphatase 65 U/L (45-117); Anion Gap 16.7 mEq/L (5.0-15.0); BUN Blood Urea Nitrogen 23 mg/dL (7-18); Globulin 3.9 g/dL (2.3-3.5); Glucose Level 211 mg/dL (74-106); Potassium 3.7 mEq/L (3.5-5.1)
[2024-10-04 05:00] LABS: ALT/SGPT < 14 U/L (16-61); AST/SGOT < 10 U/L (15-37)
[2024-10-04 05:18] LABS: Differential Total Cells Count 100; Segmented Neutrophils 79 % (40-80)
[2024-10-04 05:19] LABS: Blood Morphology Comment NOT SEEN (NOT SEEN)
--- NOTE | 2024-10-04 08:11 | RAD REPORT ---
EXAMINATION: CT HEAD WITHOUT IV CONTRAST CLINICAL INDICATION: Male, 69 years old.MENTAL STATUS CHANGE TECHNIQUE: Axial CT images from the skull base to the vertex without intravenous contrast. Coronal an d sagittal reformatted images were created from the data set. One or more of the following dose reduction techniques were used: Automated exposure control, adjustment of the mA and/or kV according to patient size, and/or iterative reconstruction. Unless otherwise specified, incidental findings do not require dedicated imaging follow-up. [id number]. COMPARISON: None FINDINGS: INTRACRANIAL: No acute intracranial hemorrhage. No hydrocephalus. No mass effect or midline shift. Mo derate sized bilateral, left greater than right, remote MCA territory infarcts. VASCULATURE: No visualized abnormalities in the arteries or dural venous sinuses. SCALP/SKULL: No significant soft tissue or osseous abnormalities. SINUSES: The visualized paranasal sinuses are predominantly clear. No mastoid effusion. IMPRESSION: No acute intracranial abnormality. Remote bilateral MCA territory infarcts. Electronically signed by: Didier Ellis MD 10/03/2024 09:43 PM CDT RP Transcribed Date/Time: 10/04/2024 8:10 AM
--- NOTE | 2024-10-04 08:42 | P.HP ---
Certification for Inpatient Patient admitted to: Inpatient With expected LOS: >2 Midnights Patient will require the following post-hospital care: None Practitioner: I am a practitioner with admitting privileges, knowledge of patient current condition, hospital course, and medical plan of care. Services: Services provided to patient in accordance with Admission requirements found in Title 42 Section 412.3 of the Code of Federal Regulations <Tyree Torres - Last Filed: 10/04/24 08:52> Patient History Date of Service: 10/04/24 Reason for admission: COPD exacerbation, AMS, weakness. 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 Patient brought to the ER today due to increased pulmonary congestion, generalized weakness, and altered mental status. According to present at bedside, she states patient has been coughing a lot with increased pulmonary congestion, with occasional shortness of breath,, states today around 5 PM patient became confused which then prompted patient to be brought to the ER. According to report received from the ER practitioner, states patient was again brought to the ER with similar symptoms on Thursday, had a complete radiographic workup done and all negative with no acute findings, patient was then discharged home. On admission assessment, patient was fully awake, alert and oriented, answers all questions appropriately, denies of any chest pain or shortness of breath, but endorses pain in left clavicle. Course in ER: Chest 1 view impression: Pulmonary vascular congestion. CT head without IV contrast. Impression: No acute intracranial abnormality. Remote right lateral MCA territory infarcts. Home medications list reviewed: No - Past Medical/Surgical History Has patient received pneumonia vaccine in the past: No Diabetic: Yes -: Hypertension -: Hyperlipidemia -: Aortic aneurysm stent -: Polycystic kidney disease -: Chronic kidney disease -: GERD -: Diabetes mellitus type 2 -: COPD -: AAA repair -: Peritoneal dialysis cath Psychosocial/ Personal History: Patient is , has 2 children and is now retired. - Family History Mother -: Lung disease dad -: Diabetes, Kidney disease - Social History Smoking Status: Former smoker Alcohol use: No CD- Drugs: No Caffeine use: Yes Place of Residence: Home <Tyree Torres - Last Filed: 10/04/24 08:52> Date of Service: 10/04/24 <Jairon Coronado - Last Filed: 10/07/24 00:14> Allergies No Known Allergies Allergy (Verified 03/16/24 05:59) Home Medications: Aspirin [Aspirin EC 81 MG] 81 mg PO DAILY 06/29/20 Magnesium Oxide 400 mg PO DAILY 06/29/20 Allopurinol 100 mg PO BEDTIME 10/14/22 Pantoprazole [Protonix Tab*] 20 mg PO BID 10/14/22 Atorvastatin Calcium 1 tab PO BEDTIME 10/04/24 Cetirizine HCl [Zyrtec] 10 mg PO BEDTIME PRN 10/04/24 Escitalopram Oxalate 1 tab PO DAILY 10/04/24 Levothyroxine Sodium [Unithroid] 50 mcg PO DAILY 10/04/24 Mirtazapine 15 mg PO BEDTIME 10/04/24 Tamsulosin [Flomax*] 0.4 mg PO BEDTIME 10/04/24 Review of Systems 10-point ROS is otherwise unremarkable Musculoskeletal: Other (Pain left clavicle fracture, and 1 left rib fracture.) Neurological: Weakness <Tyree Torres - Last Filed: 10/04/24 08:52> Physical Examination - Vital Signs Temperature: 97.4 F Blood Pressure: 138/71 Pulse: 89 Respirations: 17 Pulse Ox (%): 96 - Physical Exam General: Alert, Oriented x3 HEENT: Atraumatic, Normocephalic, PERRLA, Mucous membr. moist/pink, Sclerae nonicteric Neck: Supple, Without JVD or thyroid abnormality Respiratory: Expiratory wheezes, Other (Increased bilateral pulmonary congestion with crackles and rhonchi) Cardiovascular: No edema, Normal pulses, Regular rate/rhythm, Normal S1 S2, No gallops, No rubs, No murmurs Capillary refill: <2 Seconds Gastrointestinal: Normal bowel sounds, Soft and benign, W/out hepatomegaly, No ascites, No tenderness, No masses, No rebound, No guarding Musculoskeletal: No clubbing, No swelling, No contractures, Tenderness (Left clavicle) Integumentary: No rashes, No breakdown, No erythema, No warmth, No cyanosis Neurological: Normal speech, Normal tone, Sensation intact, Normal reflexes 2+, Normal affect Lymphatics: No axilla or inguinal lymphadenopathy Urinary: Dialysis catheter - Studies Laboratory Data (last 24 hrs) 10/03/24 10/03/24 10/03/24 21:03 21:03 21:03 WBC 10.40 Hgb 10.8 L D Hct 32.9 L Plt Count 219 PT 13.9 H INR 1.24 Sodium 135 L Potassium 4.0 BUN 18 Creatinine 4.40 H Glucose 85 Magnesium 1.7 Total Bilirubin 0.8 AST < 10 L ALT < 14 L Alkaline Phosphatase 68 Lipase 7 L <Tyree Torres - Last Filed: 10/04/24 08:52> Male Exam - Male Exam Inguinal exam: No hernias <Tyree Torres - Last Filed: 10/04/24 08:52> Assessment and Plan - Plan Patient admitted to inpatient with new onset COPD exacerbation, generalized body weakness, and current history of left clavicle fracture that patient sustained on Thursday when he fell. (1) COPD exacerbation and weakness. Chest x-ray impression no pulmonary vascular congestion. -DuoNeb every 4 hours. -Order for sputum culture. -Levaquin 500 mg p.o. daily. -Prednisone 20 mg p.o. daily. -Consult bd special education teacher Dr. Barreto. -Consult physical therapy. (2) left clavicle fracture. Inquired from patient family what patient PCP plans are with the fracture, states at this time patient was ordered just a sling. States patient current PCP is his clerical dentist assistant Dr. Velasquez. -Morphine 4 mg IV as needed every 6 hours. (3)Explained entire treatment plan to the patient, , and daughters present at the bedside, solicit questions answered and voiced understanding. Discharge Plan: Home Plan to discharge in: Greater than 2 days - Advance Directives Does patient have a Living Will: No Does patient have a Durable POA for Healthcare: No - Code Status/Comfort Care Code Status Assessed: Yes Code Status: Full Code Critical Care: No Time Spent Managing Pts Care (In Minutes): 55 <Tyree Torres - Last Filed: 10/04/24 08:52> Date of Service: 10/04/24 Patient was seen and examined. Events of the last 24 hours have been noted. Spoke with with YOLI regarding patient's clinical picture after evaluating and examining the patient independently. I performed a substantial part of the MDM during this patient's care today. I personally made or approved the documented management plan and acknowledge its risk of complications. I agree with the findings and documentation provided in the YOLI's notes. Patient was admitted with acute COPD exacerbation. Patient also with altered mentation. Family was concerned that patient had a new acute CVA. MRI is pending. CT abdomen pelvis is also pending as patient had abdominal pain. We have done extensive workup on the patient and so far workup has been unremarkable. Will continue with current plan of care and plan to monitor labs and clinical symptoms. Will reassess in AM. <Jairon Coronado - Last Filed: 10/07/24 00:14>
[2024-10-04] MEDS: POTASSIUM 25 MEQ EFFERV TAB PO ONE (08:43)
[2024-10-04] MEDS: INSULIN REGULAR (HUMAN) 100 UNIT/ML SQ SCH (08:44)
[2024-10-04] MEDS: predniSONE 20 MG TAB PO SCH (08:44)
[2024-10-04] MEDS ORDERED: levoFLOXacin 500 MG TAB PO SCH (09:00)
[2024-10-04] MEDS: MORPHINE 4 MG/ML SYR IV PRN (09:02)
--- NOTE | 2024-10-04 09:14 | RAD REPORT ---
EXAM: XR CHEST 1 VIEW HISTORY: 69 years Male COUGH COMPARISON: None FINDINGS: LUNGS/PLEURA: No consolidative airspace disease or edema. Pulmonary vascular congestion. CARDIAC/MEDIASTINUM: The cardiac silhouette is within normal limits. UPPER ABDOMEN: No significant abnormality. BONES: No acute abnormality. LINES/TUBES/OTHER: Right IJ approach Port-A-Cath catheter tip overlying the proximal SVC. IMPRESSION: Pulmonary vascular congestion. Electronically signed by: Didier Ellis MD 10/03/2024 09:52 PM CDT Transcribed Date/Time: 10/04/2024 9:14 AM
[2024-10-04] MEDS ORDERED: EPOETIN ALFA 10,000 UNIT/ML VIAL IV SCH (12:45)
--- NOTE | 2024-10-04 13:11 | CON ---
Date of Consultation: 10/04/2024 Additional Consulting Physician: Dr. Coronado. Reason For Consultation: Elevated BUN and creatinine, end-stage renal disease. History Of Present Illness: This is a pleasant 69-year-old gentleman, well known to me from the dial ysis with significant past medical history of end-stage renal disease, on hemodialysis, home hemodial ysis Thursday, Thursday, Thursday, last dialysis yesterday, CVA, hypertension, polycystic kidney disease , PAD, the patient recently was started on home dialysis. The patient had fall with clavicular fract ure. The patient was started on pain medication. Since then, patient started having some altered me ntal status, did not change after dialysis, the patient had also urine retention end up with Ortega an d leg bag, came to the hospital for that. Next, the patient started having cough with yellowish sput um for that reason, reported to the hospital. The patient continued to be confused. Past Medical History: Includes. 1. Hypertension. 2. Hyperlipidemia. 3. Aortic aneurysm. 4. Polycystic kidney disease. 5. End-stage renal disease, on hemodialysis. 6. Diabetes, complicated with neuropathy. 7. CVA. 8. COPD. Past Surgical History: Includes: 1. PD catheter placement and removal. 2. AAA repair. 3. TDC placement. 4. PEG tube placement and removal. Family History: Positive for polycystic kidney disease, diabetes and hypertension. Social History: Lives with family. Ex-smoker. Denied alcohol. Denied drugs abuse. Home Medications: Includes aspirin, magnesium, allopurinol, pantoprazole, atorvastatin, cetirizine, citalopram, levothyroxine, Flomax. Review of Systems: Head and Neck: No red eye. No ear pain. GI: No nausea, no vomiting. : No polyuria, no dysuria, no hematuria. ELECTRICIAN SUPERVISOR: Not applicable. Respiratory: No shortness of breath. Cardiovascular: No chest pain. Endocrine: No polydipsia. Skin: No rash. Neuro: Has altered mental status. Musculoskeletal: Low back pain. Physical Examination: General: When I saw the patient, the patient is lying in bed. Vital Signs: Blood pressure 138/71, pulse of 89. Afebrile. Chest: Faint rales bilateral. Heart: S1, S2 systolic murmur. Abdomen: Soft, nontender. Extremities: No edema. Neurologic: Alert. Slurred speech, pleasantly confused. No focality. Laboratory Data: Sodium 135, potassium 3.7, bicarb 21, BUN 23, creatinine 4.9, calcium of 9. Hemogl obin 10.4. Current Medications: The patient on include. 1. Levofloxacin. 2. Allopurinol. 3. Ipratropium. 4. Melatonin. 5. Morphine. Assessment And Plan: 1. Acute end-stage renal disease normal volume I going to continue the patient on dialysis Thursday, , Thursday. We will schedule the patient for dialysis tomorrow. 2. Anemia of chronic kidney disease. Resume ROB. 3. Hypertension, controlled, optimal. Continue current treatment. 4. Secondary hyperparathyroidism. I am going to follow up phosphorus and we will decide on binder. 5. Altered mental status with history of the previous stroke. I am going to repeat the CT. 6. Diabetes as by primary. 7. Bronchitis. Continue current antibiotic dose appropriate. Time spent examining the patient [id number], reviewing data, lab and radiology, placing order, disc ussing the case with the patient, discussing the case with the by bedside, discussing the case w ith the telesales team leader including hospitalist and nursing staff more than 75 minutes. ZI Voice ID: [id number] Report ID: [id number]
[2024-10-04] MEDS: TAMSULOSIN 0.4 MG SR CAP PO SCH (21:04)
[2024-10-04] MEDS ORDERED: CETIRIZINE HCL 5 MG TABLET PO PRN (21:31)
[2024-10-04] MEDS: MIRTAZAPINE 15 MG TAB PO SCH (22:21)
[2024-10-04] MEDS: ATORVASTATIN 40 MG TAB PO SCH (22:21)
[2024-10-04] MEDS: PANTOPRAZOLE 40MG TABLET PO SCH (22:21)
--- NOTE | 2024-10-05 03:10 | P.PN ---
Date of Service: 10/05/24 Subjective Patient had extensive workup done including CT chest, abdomen, and pelvis which was unremarkable. Patient also had MRI of the brain which was negative for acute findings. Family upset that patient is not wearing splint. Nursing order placed to place splint. Physical Examination - Vital Signs Reviewed - Physical Exam General: Alert, Oriented x3 HEENT: Within normal limits; Respiratory: Basilar crackles with end expiratory wheezing Cardiovascular: Regular rate/rhythm, Normal S1 S2, No gallops, No rubs, No murm urs Gastrointestinal: Normal bowel sounds, Soft and benign, W/out hepatomegaly, No ascites, No tenderness, No masses, No rebound, No guarding Musculoskeletal: No clubbing, No swelling, No contractures, Tenderness (Left clavicle); recent fracture. Neurological: Mild aphasia with left-sided weakness Assessment and Plan - Assessment/Plan Patient admitted to inpatient with new onset COPD exacerbation, generalized body weakness, and current history of left clavicle fracture that patient sustained on Thursday when he fell. (1) Acute COPD exacerbation and generalized weakness. - Continue with tapering dose patient remains hypoxic; continue with monitoring room air O2 sats and arrange for home oxygen. -Levaquin 500 mg p.o. daily. -Prednisone 20 mg p.o. daily. Continue with tapering dose -Consult physical therapy. (2) Left clavicle fracture. Inquired from patient family what patient PCP plans are with the fracture, states at this time patient was ordered just a sling. 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 Velasquez. - Continue with pain control; morphine 4 mg IV as needed every 6 hours. (3) History of CVA; continue with antiplatelet therapy and statin therapy; MRI without any acute findings. (4) ESRD; hemodialysis per nephrology (5) Abdominal pain; CT negative for any acute findings; most likely related to constipation. Laxative given Discharge Plan: Home Plan to discharge in: Greater than 2 days - Advance Directives Does patient have a Living Will: No Does patient have a Durable POA for Healthcare: No - Code Status/Comfort Care Code Status Assessed: Yes Code Status: Full Code Critical Care: No Time Spent Managing Pts Care (In Minutes): 35
[2024-10-05 06:04] LABS: Absolute Lymphocytes (CBC) 0.4 K/uL (0.7-4.9); Hematocrit 29.8 % (39.6-49.0); Hemoglobin 9.7 g/dL (13.6-17.9); MCH 30.5 pg (27.0-35.0); MCHC 32.7 g/dL (32.0-36.0); MCV 93.5 fL (80-100); MPV 7.9 fL (7.6-11.3); Nucleated RBC Absolute Count 0.0 (0-0); Nucleated Red Blood Cells % 0.0 % (0-0); RBC Red Blood Cell Count 3.19 M/uL (4.33-5.43); White Blood Count 13.00 thou/uL (4.3-10.9)
[2024-10-05 06:40] LABS: Albumin 2.6 g/dL (3.4-5.0); Albumin/Globulin Ratio 0.7 (1.1-1.8); Alkaline Phosphatase 64 U/L (45-117); Anion Gap 13.6 mEq/L (5.0-15.0); BUN Blood Urea Nitrogen 44 mg/dL (7-18); Globulin 3.8 g/dL (2.3-3.5); Glucose Level 147 mg/dL (74-106); Magnesium 2.4 mg/dL (1.6-2.4); Potassium 3.6 mEq/L (3.5-5.1)
[2024-10-05 06:45] LABS: ALT/SGPT < 14 U/L (16-61); AST/SGOT < 10 U/L (15-37)
[2024-10-05] MEDS: LEVOTHYROXINE SOD 0.025 MG TAB PO SCH (08:45)
[2024-10-05] MEDS: POTASSIUM 25 MEQ EFFERV TAB PO ONE (08:45)
[2024-10-05] MEDS: ESCITALOPRAM OXALATE 10 MG TABLET PO SCH (08:46)
[2024-10-05] MEDS: ASPIRIN EC 81 MG TAB PO SCH (08:46)
[2024-10-05] MEDS ORDERED: PANTOPRAZOLE 40MG TABLET PO SCH (09:00)
[2024-10-05 10:22] LABS: Blood Morphology Comment NOT SEEN (NOT SEEN); White Blood Cell Scan OK (OK)
--- NOTE | 2024-10-05 10:56 | P.PN ---
Date of Service: 10/05/24 69-year-old gentleman, well known to me from the dialysis with significant past medical history of end-stage renal disease, on hemodial ysis, home hemodialysis Thursday, Thursday, Thursday, last dialysis yesterday, CVA, hypertension, polycystic kidney disease, PAD, the patient recently was started on home dialysis. The patient had fall with clavicular fracture. The patient was started on pain medication. Since then, patient started having some altered mental status, did not change after dialysis, the patient had also urine retention end up with [place] and leg bag, came to the hospital for that. Next, the patient started having cough with yellowish sputum for that reason, reported to the hospital. The patient continued to be confused. Acetaminophen (Acetaminophen 500 Mg Tab) 500 mg PO Q4HP PRN PRN Reason: Pain scale 5-7 (Moderate) Albuterol Sulfate (Albuterol 2.5 Mg/3 Ml Neb Brenda) 2.5 mg NEB [id number] [facility] Last Admin: 10/05/24 07:06 Dose: 2.5 mg Allopurinol (Allopurinol 100 Mg Tab) 100 mg PO BEDTIME [facility] Last Admin: 10/04/24 22:20 Dose: 100 mg Aspirin (Aspirin Ec 81 Mg Tab) 81 mg PO DAILY [facility] Last Admin: 10/05/24 08:46 Dose: 81 mg Atorvastatin Calcium (Atorvastatin 40 Mg Tab) 40 mg PO BEDTIME [facility] Last Admin: 10/04/24 22:21 Dose: 40 mg Cetirizine HCl (Cetirizine Hcl 5 Mg Tablet) 10 mg PO BEDTIME PRN PRN Reason: ALLERGIES Epoetin Sal (Epoetin Sal 10,000 Unit/Ml Vial) 10,000 unit IV EVERY HD [facility] Escitalopram Oxalate (Escitalopram Oxalate 10 Mg Tablet) 10 mg PO DAILY [facility] Last Admin: 10/05/24 08:46 Dose: 10 mg Heparin Sodium (Porcine) (Heparin 5000 Unit/Ml 1 Ml Vial) 5,000 unit SQ Q8HR [facility] Last Admin: 10/05/24 08:45 Dose: 5,000 unit Heparin Sodium (Porcine) (Heparin 1,000 Unit/Ml Vial) 6,000 unit IV EVERY HD PRN PRN Reason: FOR DIALYSIS CATHETER CARE Heparin Sodium (Porcine) (Heparin 1,000 Unit/Ml Vial) 6,000 unit IV EVERY HD PRN PRN Reason: FOR DIALYSIS CATHETER CARE Heparin Sodium (Porcine) (Heparin 1,000 Unit/Ml Vial) 5,000 unit IV EVERY HD PRN PRN Reason: Prevent HD System Clotting Insulin Human Regular (Insulin Regular (Human) 100 Unit/Ml) 0 unit SQ ACHS [facility]; Protocol Last Admin: 10/05/24 07:30 Dose: Not Given Ipratropium [place] (Ipratropium Brom 0.5mg/2.5ml) 0.5 mg NEB [id number] [facility] Last Admin: 10/05/24 07:06 Dose: 0.5 mg Levofloxacin (Levofloxacin 500 Mg Tab) 500 mg PO Q48H PRIYA Levothyroxine Sodium (Levothyroxine Sod 0.025 Mg Tab) 0.05 mg PO DAILY [facility] Last Admin: 10/05/24 08:45 Dose: 0.05 mg Melatonin (Melatonin 3 Mg Tablet) 3 mg PO BEDTIME PRN PRN PRN Reason: INSOMNIA Last Admin: 10/04/24 02:58 Dose: 3 mg Mirtazapine (Mirtazapine 15 Mg Tab) 15 mg PO BEDTIME [facility] Last Admin: 10/04/24 22:21 Dose: 15 mg Morphine Sulfate (Morphine 4 Mg/Ml Syr) 4 mg IV Q6H PRN PRN Reason: Pain scale 8-10 (Severe) Last Admin: 10/04/24 09:02 Dose: 4 mg Pantoprazole Sodium (Pantoprazole 40mg Tablet) 40 mg PO ACB [facility]; Protocol Last Admin: 10/05/24 08:46 Dose: 40 mg Prednisone (Prednisone 20 Mg Tab) 20 mg PO DAILY [facility] Last Admin: 10/05/24 08:46 Dose: 20 mg Tamsulosin HCl (Tamsulosin 0.4 Mg Sr Cap) 0.4 mg PO BEDTIME [facility] Last Admin: 10/04/24 21:04 Dose: 0.4 mg Physical exam Temp Pulse Resp BP Pulse Ox 97.7 F 76 17 128/48 L 90 L 10/05/24 08:00 10/05/24 08:00 10/05/24 08:00 10/05/24 08:00 10/05/24 08:00 General: When I saw the patient, the patient is lying in bed. Chest: Faint rales bilateral. Heart: S1, S2 systolic murmur. Abdomen: Soft, nontender. Extremities: No edema. Neurologic: Alert. Slurred speech, pleasantly confused. No focality. Laboratory Last Values WBC 10.40 thou/uL (4.3-10.9) 10/03/24 21:03 RBC 3.49 M/uL (4.33-5.43) L 10/03/24 21:03 Hgb 10.8 g/dL (13.6-17.9) L D 10/03/24 21:03 Hct 32.9 % (39.6-49.0) L 10/03/24 21:03 MCV 94.2 fL (80-100) 10/03/24 21:03 MCH 31.0 pg (27.0-35.0) 10/03/24 21: MCHC 32.9 g/dL (32.0-36.0) 10/03/24 21:03 RDW 15.8 % (12.1-15.2) H 10/03/24 21:03 Plt Count 219 thou/uL (152-406) 10/03/24 21:03 MPV 7.9 fL (7.6-11.3) 10/03/24 21:03 Neutrophils % 78.6 % (41.7-73.7) H 10/03/24 21:03 Lymphocytes % 7.5 % (15.3-44.8) L 10/03/24 21:03 Monocytes % 11.4 % (3.3-12.3) 10/03/24 21:03 Eosinophils % 1.9 % (0-4.4) 10/03/24 21:03 Basophils % 0.6 % (0-1.3) 10/03/24 21:03 Absolute Neutrophils 8.2 K/uL (1.8-8.0) H 10/03/24 21:03 Absolute Lymphocytes 0.8 K/uL (0.7-4.9) 10/03/24 21:03 Absolute Monocytes 1.2 K/uL (0.1-1.3) 10/03/24 21:03 Absolute Eosinophils 0.2 K/uL (0-0.5) 10/03/24 21:03 Absolute Basophils 0.1 K/uL (0-0.5) 10/03/24 21:03 PT 13.9 SECONDS (10-13.0) H 10/03/24 21:03 INR 1.24 10/03/24 21:03 Sodium 135 mEq/L (136-145) L 10/03/24 21:03 Potassium 4.0 mEq/L (3.5-5.1) 10/03/24 21:03 Chloride 100 mEq/L (98-107) 10/03/24 21:03 Carbon Dioxide 26 mEq/L (21-32) 10/03/24 21:03 Anion Gap 13.0 mEq/L (5.0-15.0) 10/03/24 21:03 BUN 18 mg/dL (7-18) 10/03/24 21:03 Creatinine 4.40 mg/dL (0.70-1.30) H 10/03/24 21:03 Est GFR (CKD-EPI) 14 ml/min (=/>90) L 10/03/24 21:03 Glucose 85 mg/dL (74-106) 10/03/24 21:03 Calcium 9.1 mg/dL (8.5-10.1) D 10/03/24 21:03 Magnesium 1.7 mg/dL (1.6-2.4) 10/03/24 21:03 Total Bilirubin 0.8 mg/dL (0.2-1.0) 10/03/24 21:03 Direct Bilirubin 0.3 mg/dL (0-0.2) H 10/03/24 21:03 Indirect Bilirubin 0.5 mg/dL (0.2-0.8) 10/03/24 21:03 AST < 10 U/L (15-37) L 10/03/24 21:03 ALT < 14 U/L (16-61) L 10/03/24 21:03 Alkaline Phosphatase 68 U/L (45-117) 10/03/24 21:03 Troponin I High Sens 19.8 pg/mL (<58.9) 10/03/24 21:03 NT-Pro-B Natriuret Pep 8614 pg/mL (<125) H 10/03/24 21:03 Serum Total Protein 6.7 g/dL (6.4-8.2) 10/03/24 21:03 Albumin 2.7 g/dL (3.4-5.0) L 10/03/24 21:03 Globulin 4.0 g/dL (2.3-3.5) H 10/03/24 21:03 Albumin/Globulin Ratio 0.7 (1.1-1.8) L 10/03/24 21:03 Lipase 7 U/L (13-75) L 10/03/24 21:03 Urine Color Light-yellow (Yellow) 10/03/24: Urine Clarity Extremely turbid (Clear) H 10/03/24: Urine pH 8.0 (5.0-7.0) H 10/03/24 22: Ur Specific Blackwell 1.006 (1.005-1.030) 10/03/24: Glucose (UA)(Auto) Negative (Negative) 10/03/24: Urine Ketones Negative (Negative) 10/03/24: Urine Blood 3+ (Negative) H 10/03/24: Urine Nitrite Negative (Negative) 10/03/24: Urine Bilirubin Negative (Negative) 10/03/24: Urine Urobilinogen Normal (Normal) 10/03/24 22: Ur Leukocyte Esterase 500 Kiarra/uL (Negative) H 10/03/24 22: Urine RBC 11-20 /HPF (None Seen) H 10/03/24 22: Urine WBC 20-50 /HPF (<5) H 10/03/24 22: Ur Squamous Epith Cells None seen /HPF (None Seen) 10/03/24: U Non-Squamous Epi Cells <5 /HPF (None Seen) 10/03/24: Urine Bacteria None seen /HPF (<20) 10/03/24: Urine Culture Reflexed Reflexed 10/03/24: Urine Total Protein 2+ (Negative) H 10/03/24 22:27 Assessment And Plan: 1. end-stage renal disease normal volume I going to continue the patient on dialysis Thursday, Thursday, Thursday. We will schedule the patient for dialysis tomorrow. 2. Anemia of chronic kidney disease. Resume ROB. 3. Hypertension, controlled, optimal. Continue current treatment. 4. Secondary hyperparathyroidism. I am going to follow up phosphorus and we will decide on binder. 5. Altered mental status /history of CVA with history of the previous stroke. Resume Plavix. 6. Diabetes as by primary. 7. Bronchitis. Continue current antibiotic dose appropriate. #8 chest pain follow-up EKG Time spent examining the patient [id number], reviewing data, lab and radiology, placing order, discussing the case with the patient, discussing the case with the by bedside, discussing the case with the warehouse team member including hospitalist and nursing staff more than 55 minutes.
[2024-10-05 15:12] LABS: Hepatitis B surface AG Interp. Nonreactive (Nonreactive)
[2024-10-05 15:13] LABS: HBsAG Nonreactive Report Report
[2024-10-05] MEDS: FENTANYL CITR 100 MCG/2 ML IV ONE (18:13)
[2024-10-05] MEDS: levoFLOXacin 500 MG TAB PO SCH (20:57)
[2024-10-05] MEDS ORDERED: MIRTAZAPINE 15 MG TAB PO SCH (21:00)
[2024-10-05] MEDS ORDERED: TAMSULOSIN 0.4 MG SR CAP PO SCH (21:00)
[2024-10-05] MEDS ORDERED: ATORVASTATIN 40 MG TAB PO SCH (21:00)
[2024-10-06] MEDS: METHYLPREDNISOLONE 40 MG INJ IV SCH (00:22)
[2024-10-06 05:09] LABS: Absolute Lymphocytes (CBC) 0.5 K/uL (0.7-4.9); Hematocrit 32.5 % (39.6-49.0); Hemoglobin 10.6 g/dL (13.6-17.9); MCH 30.4 pg (27.0-35.0); MCHC 32.5 g/dL (32.0-36.0); MCV 93.4 fL (80-100); MPV 7.7 fL (7.6-11.3); Nucleated RBC Absolute Count 0.0 (0-0); Nucleated Red Blood Cells % 0.0 % (0-0); RBC Red Blood Cell Count 3.48 M/uL (4.33-5.43); White Blood Count 12.70 thou/uL (4.3-10.9)
[2024-10-06 05:28] LABS: AST/SGOT 12 U/L (15-37); Albumin 2.7 g/dL (3.4-5.0); Albumin/Globulin Ratio 0.7 (1.1-1.8); Alkaline Phosphatase 63 U/L (45-117); Anion Gap 12.8 mEq/L (5.0-15.0); BUN Blood Urea Nitrogen 37 mg/dL (7-18); Globulin 4.1 g/dL (2.3-3.5); Glucose Level 129 mg/dL (74-106); Magnesium 2.3 mg/dL (1.6-2.4); Potassium 3.8 mEq/L (3.5-5.1)
[2024-10-06 05:32] LABS: Lipase 27.0 U/L (13-75); Magnesium 2.4 mg/dL (1.6-2.4)
[2024-10-06 05:36] LABS: ALT/SGPT < 14 U/L (16-61)
--- NOTE | 2024-10-06 08:39 | RAD REPORT ---
EXAM: CT CHEST, ABDOMEN AND PELVIS WITH CONTRAST CLINICAL INDICATION: chest pain; abd pain TECHNIQUE: CT chest, abdomen and pelvis was performed, following the administration of contrast, as p er department protocol. Axial, sagittal and coronal reconstructions were obtained. One or more of the following dose reduction techniques were used: Automated exposure control, adjustment of the mA a nd/or kV according to patient size, and/or iterative reconstruction. Unless otherwise specified, incidental findings do not require dedicated imaging follow-up. COMPARISON: 05/27/2023 FINDINGS: LUNGS: Irregular 24 x 19 mm triangular lesion in the left upper lobe posteriorly abutting the pleura. Linear atelectasis is present posterior right upper lobe. Moderate airspace infiltrate pattern is present in both lower lobes, greater on the left. PLEURA: Trace pleural fluid bilaterally. MEDIASTINUM AND LYMPH NODES: No mediastinal mass or fluid collection. Normal size mediastinal, hilar, and axillary lymph nodes. OSSEOUS STRUCTURES AND CHEST WALL: Intact. LIVER: Irregular numerous low-density lesions throughout the liver parenchyma largest measuring about 5 cm posterior right lobe. Grossly unremarkable gallbladder. PANCREAS: No mass, ductal dilation, or roxie-pancreatic fluid. SPLEEN: Normal size. No focal lesion. ADRENALS: Normal; no mass. KIDNEYS: Polycystic kidneys bilaterally. URINARY BLADDER: Normal contour. GASTROINTESTINAL TRACT: No bowel obstruction, free air, significant free fluid or abscess. Signific ant diverticulosis coli without diverticulitis. APPENDIX: Normal appendix. LYMPH NODES: No lymphadenopathy. MUSCULOSKELETAL: No acute or suspicious osseous abnormality. 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 IMPRESSION: Patchy airspace opacity in both lung bases posteriorly suspicious for infiltrate/pneumonia. Small triangular lesion in the left apex posteriorly is indeterminate but could be malignant. Follow up PET/CT evaluation on a nonemergent basis would be advised. Polycystic kidney disease with liver cysts also noted.
--- NOTE | 2024-10-06 08:51 | RAD REPORT ---
EXAMINATION: MRI BRAIN WITHOUT CONTRAST CLINICAL INDICATION: CVA TECHNIQUE: Multiplanar multisequence MR images of the brain were obtained without intravenous contras t. Unless otherwise specified, incidental findings do not require dedicated imaging follow-up. COMPARISON: 10/03/2024 FINDINGS: INTRACRANIAL: Diffusion-weighted images show no acute or early subacute infarction. There is mild bra in atrophy with mildT2/FLAIR hyperintensities in the periventricular and deep white matter regions, likely representing chronic microvascular ischemic changes. There is no mass effect or midline shift. No abnormal extraaxial fluid collection. There is evidence of old infarctions in both posterior watershed zones, greater on the left. VASCULATURE: Normal signal voids in the larger intracranial arteries and dural venous sinuses. SINUSES: The paranasal sinuses and mastoid air cells are predominantly clear. BONE: The marrow signal pattern is within normal limits. IMPRESSION: No acute CVA findings. Gliosis is present in the watershed zone bilaterally, greater on the left compatible with remote infa rcts.
[2024-10-06] MEDS: CLOPIDOGREL 75 MG TABLET PO SCH (09:46)
--- NOTE | 2024-10-06 14:31 | P.PN ---
Date of Service: 10/06/24 69-year-old gentleman, well known to me from the dialysis with significant past medical history of end-stage renal disease, on hemodial ysis, home hemodialysis Thursday, Thursday, Thursday, last dialysis yesterday, CVA, hypertension, polycystic kidney disease, PAD, the patient recently was started on home dialysis. The patient had fall with clavicular fracture. The patient was started on pain medication. Since then, patient started having some altered mental status, did not change after dialysis, the patient had also urine retention end up with Ortega and leg bag, came to the hospital for that. Next, the patient started having cough with yellowish sputum for that reason, reported to the hospital. The patient continued to be confused. Acetaminophen (Acetaminophen 500 Mg Tab) 500 mg PO Q4HP PRN PRN Reason: Pain scale 5-7 (Moderate) Albuterol Sulfate (Albuterol 2.5 Mg/3 Ml Neb Brenda) 2.5 mg NEB [id number] [facility] Last Admin: 10/06/24 12:51 Dose: 2.5 mg Allopurinol (Allopurinol 100 Mg Tab) 100 mg PO BEDTIME [facility] Last Admin: 10/05/24 20:57 Dose: 100 mg Aspirin (Aspirin Ec 81 Mg Tab) 81 mg PO DAILY [facility] Last Admin: 10/06/24 09:46 Dose: 81 mg Atorvastatin Calcium (Atorvastatin 40 Mg Tab) 40 mg PO BEDTIME [facility] Last Admin: 10/05/24 20:58 Dose: 40 mg Cetirizine HCl (Cetirizine Hcl 5 Mg Tablet) 10 mg PO BEDTIME PRN PRN Reason: ALLERGIES Clopidogrel Bisulfate (Clopidogrel 75 Mg Tablet) 75 mg PO DAILY [facility] Last Admin: 10/06/24 09:46 Dose: 75 mg Epoetin Sal (1) 10,000 unit IV EVERY HD [facility] Last Admin: 10/05/24 14:00 Dose: 10,000 unit Escitalopram Oxalate (Escitalopram Oxalate 10 Mg Tablet) 10 mg PO DAILY [facility] Last Admin: 10/06/24 09:51 Dose: 10 mg Heparin Sodium (Porcine) (Heparin 5000 Unit/Ml 1 Ml Vial) 5,000 unit SQ Q8HR [facility] Last Admin: 10/06/24 09:47 Dose: 5,000 unit Heparin Sodium (Porcine) (Heparin 1,000 Unit/Ml Vial) 6,000 unit IV EVERY HD PRN PRN Reason: FOR DIALYSIS CATHETER CARE Last Admin: 10/05/24 14:19 Dose: 6,000 unit Heparin Sodium (Porcine) (Heparin 1,000 Unit/Ml Vial) 5,000 unit IV EVERY HD PRN PRN Reason: Prevent HD System Clotting Last Admin: 10/05/24 11:15 Dose: 5,000 unit Insulin Human Regular (Insulin Regular (Human) 100 Unit/Ml) 0 unit SQ ACHS [facility]; Protocol Last Admin: 10/06/24 11:30 Dose: Not Given Ipratropium [place] (Ipratropium Brom 0.5mg/2.5ml) 0.5 mg NEB [id number] [facility] Last Admin: 10/06/24 12:51 Dose: 0.5 mg Levofloxacin (Levofloxacin 500 Mg Tab) 500 mg PO Q48H [facility] Last Admin: 10/05/24 20:57 Dose: 500 mg Levothyroxine Sodium (Levothyroxine Sod 0.025 Mg Tab) 0.05 mg PO DAILY [facility] Last Admin: 10/06/24 09:46 Dose: 0.05 mg Melatonin (Melatonin 3 Mg Tablet) 3 mg PO BEDTIME PRN PRN PRN Reason: INSOMNIA Last Admin: 10/05/24 21:19 Dose: 3 mg Methylprednisolone Sodium Succinate (Methylprednisolone 40 Mg Inj) 40 mg IV Q6HR [facility] Last Admin: 10/06/24 12:14 Dose: 40 mg Mirtazapine (Mirtazapine 15 Mg Tab) 15 mg PO BEDTIME [facility] Last Admin: 10/05/24 20:57 Dose: 15 mg Morphine Sulfate (Morphine 4 Mg/Ml Syr) 4 mg IV Q6H PRN PRN Reason: Pain scale 8-10 (Severe) Last Admin: 10/05/24 16:45 Dose: 4 mg Pantoprazole Sodium (Pantoprazole 40mg Tablet) 40 mg PO ACB [facility]; Protocol Last Admin: 10/06/24 09:51 Dose: 40 mg Prednisone (Prednisone 20 Mg Tab) 20 mg PO DAILY [facility] Last Admin: 10/06/24 09:46 Dose: 20 mg Tamsulosin HCl (Tamsulosin 0.4 Mg Sr Cap) 0.4 mg PO BEDTIME [facility] Last Admin: 10/05/24 20:58 Dose: 0.4 mg Physical exam Temp Pulse Resp BP Pulse Ox 98.1 F 71 15 125/46 L 90 L 08/07/25 12:00 10/06/24 12:00 10/06/24 12:00 10/06/24 12:00 10/06/24 12:00 General: When I saw the patient, the patient is lying in bed. Chest: Faint rales bilateral. Heart: S1, S2 systolic murmur. Abdomen: Soft, nontender. Extremities: No edema. Neurologic: Alert. Slurred speech, pleasantly confused. No focality. Laboratory Last Values WBC 10.40 thou/uL (4.3-10.9) 10/03/24 21:03 RBC 3.49 M/uL (4.33-5.43) L 10/03/24 21:03 Hgb 10.8 g/dL (13.6-17.9) L D 10/03/24 21:03 Hct 32.9 % (39.6-49.0) L 10/03/24 21:03 MCV 94.2 fL (80-100) 10/03/24 21:03 MCH 31.0 pg (27.0-35.0) 10/03/24 21:03 MCHC 32.9 g/dL (32.0-36.0) 10/03/24 21:03 RDW 15.8 % (12.1-15.2) H 10/03/24 21:03 Plt Count 219 thou/uL (152-406) 10/03/24 21:03 MPV 7.9 fL (7.6-11.3) 10/03/24 21:03 Neutrophils % 78.6 % (41.7-73.7) H 10/03/24 21:03 Lymphocytes % 7.5 % (15.3-44.8) L 10/03/24 21:03 Monocytes % 11.4 % (3.3-12.3) 10/03/24 21:03 Eosinophils % 1.9 % (0-4.4) 10/03/24 21:03 Basophils % 0.6 % (0-1.3) 10/03/24 21:03 Absolute Neutrophils 8.2 K/uL (1.8-8.0) H 10/03/24 21:03 Absolute Lymphocytes 0.8 K/uL (0.7-4.9) 10/03/24 21:03 Absolute Monocytes 1.2 K/uL (0.1-1.3) 10/03/24 21:03 Absolute Eosinophils 0.2 K/uL (0-0.5) 10/03/24 21:03 Absolute Basophils 0.1 K/uL (0-0.5) 10/03/24 21:03 PT 13.9 SECONDS (10-13.0) H 10/03/24 21:03 INR 1.24 10/03/24 21:03 Sodium 135 mEq/L (136-145) L 10/03/24 21:03 Potassium 4.0 mEq/L (3.5-5.1) 10/03/24 21:03 Chloride 100 mEq/L (98-107) 10/03/24 21:03 Carbon Dioxide 26 mEq/L (21-32) 10/03/24 21:03 Anion Gap 13.0 mEq/L (5.0-15.0) 10/03/24 21:03 BUN 18 mg/dL (7-18) 10/03/24 21:03 Creatinine 4.40 mg/dL (0.70-1.30) H 10/03/24 21:03 Est GFR (CKD-EPI) 14 ml/min (=/>90) L 10/03/24 21:03 Glucose 85 mg/dL (74-106) 10/03/24 21:03 Calcium 9.1 mg/dL (8.5-10.1) D 10/03/24 21:03 Magnesium 1.7 mg/dL (1.6-2.4) 10/03/24 21:03 Total Bilirubin 0.8 mg/dL (0.2-1.0) 10/03/24 21:03 Direct Bilirubin 0.3 mg/dL (0-0.2) H 10/03/24 21:03 Indirect Bilirubin 0.5 mg/dL (0.2-0.8) 10/03/24 21:03 AST < 10 U/L (15-37) L 10/03/24 21:03 ALT < 14 U/L (16-61) L 10/03/24 21:03 Alkaline Phosphatase 68 U/L (45-117) 10/03/24 21:03 Troponin I High Sens 19.8 pg/mL (<58.9) 10/03/24 21:03 NT-Pro-B Natriuret Pep 8614 pg/mL (<125) H 10/03/24 21:03 Serum Total Protein 6.7 g/dL (6.4-8.2) 10/03/24 21:03 Albumin 2.7 g/dL (3.4-5.0) L 10/03/24 21:03 Globulin 4.0 g/dL (2.3-3.5) H 10/03/24 21:03 Albumin/Globulin Ratio 0.7 (1.1-1.8) L 10/03/24 21:03 Lipase 7 U/L (13-75) L 10/03/24 21:03 Urine Color Light-yellow (Yellow) 10/03/24: Urine Clarity Extremely turbid (Clear) H 10/03/24 22: Urine pH 8.0 (5.0-7.0) H 10/03/24 22: Ur Specific [place] 1.006 (1.005-1.030) 10/03/24: Glucose (UA)(Auto) Negative (Negative) 10/03/24: Urine Ketones Negative (Negative) 10/03/24: Urine Blood 3+ (Negative) H 10/03/24: Urine Nitrite Negative (Negative) 10/03/24: Urine Bilirubin Negative (Negative) 10/03/24: Urine Urobilinogen Normal (Normal) 10/03/24 22: Ur Leukocyte Esterase 500 Kiarra/uL (Negative) H 10/03/24 22: Urine RBC 11-20 /HPF (None Seen) H 10/03/24 22: Urine WBC 20-50 /HPF (<5) H 10/03/24 22:27 Ur Squamous Epith Cells None seen /HPF (None Seen) 10/03/24: U Non-Squamous Epi Cells <5 /HPF (None Seen) 10/03/24: Urine Bacteria None seen /HPF (<20) 10/03/24 22: Urine Culture Reflexed Reflexed 10/03/24 22: Urine Total Protein 2+ (Negative) H 10/03/24 22:27 Assessment And Plan: 1. end-stage renal disease normal volume I going to continue the patient on dialysis Thursday, Thursday, Thursday. We will schedule the patient for dialysis tomorrow. Patient to clear from the renal standpoint for DC planning 2. Anemia of chronic kidney disease. Continue ROB. 3. Hypertension, controlled, optimal. Continue current treatment. 4. Secondary hyperparathyroidism. I am going to follow up phosphorus and we will decide on binder. 5. Altered mental status /history of CVA with history of the previous stroke. Resume Plavix. 6. Diabetes as by primary. 7. Bronchitis. Continue current antibiotic dose appropriate. Time spent examining the patient [id number], reviewing data, lab and radiology, placing order, discussing the case with the patient, discussing the case with the by bedside, discussing the case with the team cdl driver including hospitalist and nursing staff more than 55 minutes.
[2024-10-06] MEDS: POLYETHYL GLY 3350 17 GM/DOSE PO ONE (17:56)
--- NOTE | 2024-10-06 20:22 | CON ---
Reason For Consultation: Consultation called because of a possibility of stroke and confusion. History Of Present Illness: Mr. Jimenes is a 69-year-old patient with dyslipidemia; hypertension; end -stage renal disease, on hemodialysis, followed by the renal service who had a stroke in May 2024 a ffecting his left face, arm, and leg with difficulty with expression and comprehension. The patient per his is doing therapy with the [facility] and was making good progress. On the day o f admission, the 4th, patient was standing next to his . She said she actually walked around him and when she turned, he was losing balance and fell. Impacted the left side, his shoulder and left chest and was brought to [facility] where he was found to have a left clavicular fracture an d fracture of the rib on the left side. The patient was found in pulmonary congestion, generalized w eakness, and some disorientation and confusion. He was seen in the emergency room, ruled for an acut e ischemic or hemorrhagic findings in terms of a CT scan and that was done on 10/03/2024. No bleedin g, no fracture. The chest x-ray does identify a small triangular lesion in the left apex of the lung s posteriorly. The radiologist suggests possibility of a malignancy and the PET-CT scan was recommen ded. The brain MRI done on 10/06/2024 shows no acute ischemic or hemorrhagic changes. Gliosis is pr esent in the watershed zone bilaterally, greater on the left, which is compatible with remote infarct s. Laboratory Studies: Earlier today, white blood cell count elevated to 12.7 with 93.8% neutrophils. Has INR 1.24. Glucose ranged up to 166. Procalcitonin was elevated to 3.11 with lactic acid normal at 0.9. Magnesium normal at 2.4. Lipase normal at 27. Otherwise, creatinine is elevated at 4.88. The patient is a renal patient with BUN of 37 and liver function studies are unremarkable. Urinalysi s suggested urinary tract infection with esterase 500, white blood cells 20-50, red blood cells 11-22 , 3+ blood, pH of 8, extreme turbidity, 2+ total protein. The cultures are pending in the sputum and urine. At the time of my evaluation, the patient was able to follow simple commands. He moved his arms and legs equally well given the limitation of the left clavicular and rib fracture. His left leg, he was able to elevate well and held it for 5 counts with very minimal drop. Right leg held for a 5 count. Right arm held for a 10 count without difficulty. Past Medical History: As noted above. In addition to GERD, has chronic kidney disease, polycystic k idney disease, aortic aneurysm with stent placement, dyslipidemia, hypertension, COPD, diabetes luisitoi tus type 2. Past Surgical History: Abdominal aortic aneurysm repair. He has a peritoneal dialysis catheter. Allergies: NO KNOWN DRUG ALLERGIES. Current Medications: Tylenol 500 mg every 4 hours as needed, albuterol nebulizer 2.5 mg every 4 hour s, allopurinol 100 mg daily, aspirin 81 mg daily, Zyrtec 10 mg as needed, Lipitor 40 mg at bedtime, P lavix 75 mg daily, Retacrit 10,000 units with hemodialysis, Lexapro 10 mg daily, heparin 5000 units s ubcutaneously twice daily, Atrovent 0.5 mg nebulizer every 4 hours, Levaquin 500 mg every 48 hours, S ynthroid 0.05 mg daily, melatonin 3 at night for insomnia, methylprednisolone 40 mg IV every 6 hours, Remeron 15 mg at bedtime, morphine sulfate 4 mg every 6 hours as needed for severe pain. Also, has Protonix 40 mg daily, prednisone 20 mg daily, and Flomax 0.4 mg daily. Family History: Lung disease in mother. Diabetes, kidney disease in father. Social History: Smoked in the past. No current alcohol use. Does drink caffeinated beverages. Review of Systems: No ongoing fevers or chills, myalgias, arthralgias, rash, headache. No psychiatric complaints. No n ew or other complaints or issues. Physical Examination: Vital Signs: Blood pressure is 125/46, pulse 71, respiratory rate of 15, temperature 98.1, oxygen sa turation is 92% on 3 L. Weight 195 pounds, height 6 feet, BMI 26.4. General: Mr. Jimenes is resting comfortably, in no acute distress. HEENT: Head, normocephalic, atraumatic. Sclerae anicteric. Oropharynx pink and moist. Neck: Supple. Chest: Clear. Heart: Regular. Extremities: No significant clubbing, cyanosis, or edema. Neurological: His face is symmetric with excursions. He has moderate difficulty with labial, lingua l, and guttural sounds. Sensation is intact on left and right. His upper extremities, he does have decreased range of motion limited by pain because of clavicular fracture on the left, but he is able to hold his arm off without drift and right side, held up without drift. Lower extremities, on the r ight, held without drift and on the left, slight weakness around 4/5. Otherwise 5/5 in the right upp er and lower extremities. Sensation is reportedly intact with stocking-glove loss, depressed reflexe s in the upper and lower extremities. He will be ambulated with physical therapist and he is able to use gait belt and a wheelchair in tow. Assessment And Plan: Mr. Jimenes is a 69-year-old patient with no evidence of an acute stroke. He sethi s had chronic strokes affecting perhaps the left side of his body more than the right, but he has no evidence of an acute or new stroke. The patient had intercurrent illness and potentially cause his l oss of balance and fall. He has had some episodes of confusion, which is potentially multifactorial related to metabolic encephalopathy. He, however, has no evidence of any significant global change s uch as hypoperfusion or hypoxia or systemic infection, although a slight infection can cause a toxic encephalopathy. In terms of the plan, continue with current course of antibiotic treatment, gentle h ydration as he is a renal patient. His electrolyte imbalance is currently corrected. He has a strok e risk addressed. He has DVT risk addressed. Has additional stroke risk including his dyslipidemia, is addressed adequately. At this point, no additional neurological workup is recommended. The stephie ent will be discharged and followed up in Dr. Kirby's clinic. He does have a prior scan, which th e patient's family says has been done in [place] and they will obtain the latest imaging on a disk and a comparison can be made with the MRI done in hospital on 10/06/2024 and that will be reviewed when the patient follows up in clinic on an outpatient basis. CHRIS/LB Voice ID: [id number] Report ID: [id number]
[2024-10-06] MEDS: MINERAL OIL 30 ML UCUP PO ONE (21:12)
--- NOTE | 2024-10-07 00:23 | P.PN ---
Date of Service: 10/06/24 Subjective Patient's workup has been unremarkable. Arranging for home oxygen. Plan to discharge after hemodialysis in morning. Clinical symptoms have improved. MiraLAX and mineral oil given today as patient was constipated. Tolerating diet. Physical Examination - Vital Signs Reviewed - Physical Exam General: Alert, Oriented x3 HEENT: Within normal limits; Respiratory: Basilar crackles with end expiratory wheezing Cardiovascular: Regular rate/rhythm, Normal S1 S2, No gallops, No rubs, No murmurs Gastrointestinal: Normal bowel sounds, Soft and benign, W/out hepatomegaly, No ascites, No tenderness, No masses, No rebound, No guarding Musculoskeletal: No clubbing, No swelling, No contractures, Tenderness (Left clavicle); recent fracture. Neurological: Mild aphasia with left-sided weakness Assessment and Plan - Assessment/Plan Patient admitted to inpatient with new onset COPD exacerbation, generalized body weakness, and current history of left clavicle fracture that patient sustained on Thursday when he fell. (1) Bibasilar pneumonia with acute COPD exacerbation and generalized weakness. -Arrange for home oxygen. Room air O2 sats 84% and in the 90s on 2 L. -Levaquin 500 mg p.o. daily x 3 more days. -Prednisone 20 mg p.o. daily. Continue with tapering dose -Consult physical therapy. (2) Left clavicle fracture. Inquired from patient family what patient PCP plans are with the fracture, states at this time patient was ordered just a sling. 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 - Continue with pain control; morphine 4 mg IV as needed every 6 hours. (3) History of CVA; continue with antiplatelet therapy and statin therapy; MRI without any acute findings. (4) ESRD; hemodialysis per nephrology (5) Abdominal pain; CT negative for any acute findings; most likely related to constipation. Laxative given Discharge Plan: Home Plan to discharge in: Greater than 2 days - Advance Directives Does patient have a Living Will: No Does patient have a Durable POA for Healthcare: No - Code Status/Comfort Care Code Status Assessed: Yes Code Status: Full Code Critical Care: No Time Spent Managing Pts Care (In Minutes): 35
[2024-10-07 05:18] LABS: Albumin 2.7 g/dL (3.4-5.0); Anion Gap 15.0 mEq/L (5.0-15.0); BUN Blood Urea Nitrogen 61.0 mg/dL (7-18); Glucose Level 167.0 mg/dL (74-106); Magnesium 2.4 mg/dL (1.6-2.4); Potassium 4.0 mEq/L (3.5-5.1)
--- NOTE | 2024-10-07 10:44 | P.PN ---
Date of Service: 10/07/24 Subjective: home O2 being arranged no acute events overnight afebrile Physical Exam: Gen: Alert, NAD, Orientedx3 CV: Regular rate and rhythm, no edema Pulm: Nonlabored respirations on 4L NC , Basilar crackles with end expiratory wheezing Abdomen: Soft, nontender, nondistended MSK: left clavicle tenderness Neuro: Mild aphasia with left-sided weakness Problem List: Bibasilar pneumonia Acute on chronic COPD exacerbation Acute hypoxic respiratory failure secondary to the above Left clavicle fracture Hx of CVA ESRD of HD Polycystic Kidney disease Constipation BPH Hypothyroidism Hyperlipidemia Hypertension GERD Bibasilar pneumonia Acute on chronic COPD exacerbation Acute hypoxic respiratory failure secondary to the above CT head: no acute findings. Remove bilateral MCA territory infarcts MRI brain: No acute CVA. Gliosis is present in the watershed zone bilaterally, greater on the left compatible with remote infarcts. CT chest/abd/pelvis: Patchy airspace opacity in both lung bases suspicious for pneumonia. Small triangular lesion in the left apex posteriorly is indeterminate but could be malignant. [id number] kidney disease with liver cysts Dr. Barreto, pulm consulted Home O2 being arranged. IV steroids deescalated to oral prednisone 10/07 Continue oral levaquin for 2 more days Left clavicle fracture Hx of CVA continue supportive care, pain control. Neuro consulted. No further input. Follow up in clinic continue statin, plavix, asa 81mg ESRD of HD Polycystic Kidney disease Nephrology consulted dialysis per nephro Constipation s/p mineral oil and glycolax yesterday BPH Hypothyroidism Hyperlipidemia Hypertension GERD continue flomax, synthroid, protonix, VTE: heparin sq Code: Full Dispo: Home with home health Pending Home O2 setup
[2024-10-07] MEDS: GUAIFENESIN/CODEINE 5ML UCUP PO PRN (15:26)
[2024-10-07] MEDS: BENZONATATE 100 MG CAP PO PRN (15:27)
[2024-10-07] MEDS ORDERED: FLEET ENEMA ADULT PR PRN (19:25)
[2024-10-07] MEDS: MINERAL OIL ENEMA 135 ML BTL PR SCH (20:00)
[2024-10-07] MEDS: DOCUSATE NA 100 MG CAP PO SCH (20:24)
[2024-10-08 05:04] LABS: Albumin 2.6 g/dL (3.4-5.0); Anion Gap 12.5 mEq/L (5.0-15.0); BUN Blood Urea Nitrogen 41.0 mg/dL (7-18); Glucose Level 120.0 mg/dL (74-106); Potassium 3.5 mEq/L (3.5-5.1)
[2024-10-08 07:25] LABS: Absolute Lymphocytes (CBC) 1.7 K/uL (0.7-4.9); Hematocrit 33.8 % (39.6-49.0); Hemoglobin 11.0 g/dL (13.6-17.9); MCH 30.7 pg (27.0-35.0); MCHC 32.5 g/dL (32.0-36.0); MCV 94.7 fL (80-100); MPV 8.2 fL (7.6-11.3); Nucleated RBC Absolute Count 0.0 (0-0); Nucleated Red Blood Cells % 0.1 % (0-0); RBC Red Blood Cell Count 3.57 M/uL (4.33-5.43); White Blood Count 13.30 thou/uL (4.3-10.9)
[2024-10-08] MEDS ORDERED: IPRATROPIUM BROM 0.5MG/2.5ML NEB PRN (10:20)
[2024-10-08] MEDS ORDERED: ALBUTEROL 2.5 MG/3 ML NEB SOL NEB PRN (10:22)
--- NOTE | 2024-10-08 10:23 | P.CNS ---
Date of Consult: 10/08/24 Reason for Consult: Possible pneumonia recent fall Chief Complaint: Recent fall and weakness History of Present Illness: Patient is 69 years of age she has expressive dysphagia from his stroke in May at the bedside apparently he was doing well ambulating not receiving any physical therapy prior to his arrival he fell otherwise patient patient's denied any shortness of breath cough congestion fever or chills no prior history of obstructive airways disease he quit smoking over 20 years ago no other complaints right now Allergies No Known Allergies Allergy (Verified 03/16/24 05:59) Home Medications: Aspirin [Aspirin EC 81 MG] 81 mg PO DAILY 06/29/20 Magnesium Oxide 400 mg PO DAILY 06/29/20 Allopurinol 100 mg PO BEDTIME 10/14/22 Pantoprazole [Protonix Tab*] 20 mg PO BID 10/14/22 Atorvastatin Calcium 1 tab PO BEDTIME 10/04/24 Cetirizine HCl [Zyrtec] 10 mg PO BEDTIME PRN 10/04/24 Escitalopram Oxalate 1 tab PO DAILY 10/04/24 Levothyroxine Sodium [Unithroid] 50 mcg PO DAILY 10/04/24 Mirtazapine 15 mg PO BEDTIME 10/04/24 Tamsulosin [Flomax*] 0.4 mg PO BEDTIME 10/04/24 - Past Medical/Surgical History Diabetic: Yes -: Hypertension -: Hyperlipidemia -: Aortic aneurysm stent -: Polycystic kidney disease -: Chronic kidney disease -: GERD -: Diabetes mellitus type 2 -: COPD -: AAA repair -: Peritoneal dialysis cath Psychosocial/ Personal History: Patient is , has 2 children and is now retired. - Family History Mother Medical History: Lung disease dad Medical History: Diabetes, Kidney disease - Social History Smoking Status: Unknown if ever smoked Alcohol use: No CD- Drugs: No Caffeine use: Yes Place of Residence: Home Review of Systems is unable to be obtained Physical Examination Temp Pulse Resp BP Pulse Ox 96.8 F 55 18 140/65 99 10/08/24 08:00 10/08/24 08:00 10/08/24 08:00 10/08/24 08:00 10/08/24 08:00 General: Alert, Cooperative Respiratory: Clear to auscultation bilaterally Cardiovascular: No edema, Regular rate/rhythm, Normal S1 S2 Gastrointestinal: Normal bowel sounds, Soft and benign - Problems (1) Pneumonia Current Visit: Yes Status: Acute Plan: Patient is 69 years of age was admitted after recent fall he had a stroke in May and was doing well ambulating without assistance apparently had a fractured collarbone patient has end-stage renal disease on dialysis CT scan shows a left retrocardiac infiltrate not very visible on the chest x-ray white count was normal on admission vital signs oxygenation satisfactory appears to be little hypoxic may have underlying obstructive airways disease that got undiagnosed there is no clinical evidence of sepsis may be old scarring Qualifiers: Laterality: left
[2024-10-08 10:29] LABS: Blood Morphology Comment NOT SEEN (NOT SEEN); Platelets, Giant FEW; White Blood Cell Scan OK (OK)
--- NOTE | 2024-10-08 13:33 | P.DS ---
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 Patient brought to the ER today due to increased pulmonary congestion, generalized weakness, and altered mental status. According to present at bedside, she states patient has been coughing a lot with increased pulmonary congestion, with occasional shortness of breath,, states today around 5 PM patient became confused which then prompted patient to be brought to the ER. According to report received from the ER practitioner, states patient was again brought to the ER with similar symptoms on Thursday, had a complete radiographic workup done and all negative with no acute findings, patient was then discharged home. On admission assessment, patient was fully awake, alert and oriented, answers all questions appropriately, denies of any chest pain or shortness of breath, but endorses pain in left clavicle. Upon admission he was started on antibiotics, steroids, and pain control. His clinical condition improved over the course of his stay. Pulmonology was consulted. He will follow-up with pulmonology as outpatient. he has been weaned off oxygen and will mobilize with the nursing staff. Remainder of his medical problems are chronic and stable. He will be discharged with [facility] 07/02/2024 for 7 days. He is medically optimized for discharge Hospital Course: Physical Exam: Gen: Alert, NAD, Orientedx3 CV: Regular rate and rhythm, no edema Pulm: Nonlabored respirations on 4L NC , Basilar crackles with end expiratory wheezing Abdomen: Soft, nontender, nondistended MSK: left clavicle tenderness Neuro: Mild aphasia with left-sided weakness Problem List: Bibasilar pneumonia Acute on chronic COPD exacerbation Acute hypoxic respiratory failure secondary to the above Left clavicle fracture Hx of CVA ESRD of HD Polycystic Kidney disease Constipation BPH Hypothyroidism Hyperlipidemia Hypertension GERD Bibasilar pneumonia CT head: no acute findings. Remove bilateral MCA territory infarcts MRI brain: No acute CVA. Gliosis is present in the watershed zone bilaterally, greater on the left compatible with remote infarcts. CT chest/abd/pelvis: Patchy airspace opacity in both lung bases suspicious for pneumonia. Small triangular lesion in the left apex posteriorly is indeterminate but could be malignant. [id number] kidney disease with liver cysts Dr. Barreto, pulm consulted Weaned off oxygen IV steroids deescalated to oral prednisone 10/07 Continue oral levaquin for 2 more days Acute hypoxic respiratory failure resolved Acute on chronic COPD exacerbation resolved Left clavicle fracture Hx of CVA continue supportive care, pain control. Neuro consulted. No further input. Follow up in clinic continue statin, plavix, asa 81mg ESRD of HD Polycystic Kidney disease Nephrology consulted dialysis per nephro Constipation s/p mineral oil and glycolax yesterday BPH Hypothyroidism Hyperlipidemia Hypertension GERD continue flomax, synthroid, protonix, VTE: heparin sq Code: Full Dispo: Home Vital Signs/Physical Exam: Temp Pulse Resp BP Pulse Ox 97.8 F 66 16 131/68 92 10/08/24 12:00 10/08/24 12:00 10/08/24 12:00 10/08/24 12:00 10/08/24 12:00 Laboratory Data at Discharge: WBC 13.30 thou/uL (4.3-10.9) H 10/08/24 04:15 Hgb 11.0 g/dL (13.6-17.9) L 10/08/24 04:15 Hct 33.8 % (39.6-49.0) L 10/08/24 04:15 Plt Count 281 thou/uL (152-406) 10/08/24 04:15 PT 13.9 SECONDS (10-13.0) H 10/03/24 21:03 INR 1.24 10/03/24 21:03 Sodium 137 mEq/L (136-145) 10/08/24 04:15 Potassium 3.5 mEq/L (3.5-5.1) 10/08/24 04:15 BUN 41 mg/dL (7-18) H 10/08/24 04:15 Creatinine 4.60 mg/dL (0.70-1.30) H 10/08/24 04:15 Glucose 120 mg/dL (74-106) H 10/08/24 04:15 Phosphorus 5.4 mg/dL (2.5-4.9) H 10/08/24 04:15 Magnesium 2.4 mg/dL (1.6-2.4) 10/07/24 04:26 Total Bilirubin 0.5 mg/dL (0.2-1.0) 10/06/24 04:19 AST 12 U/L (15-37) L 10/06/24 04:19 ALT < 14 U/L (16-61) L 10/06/24 04:19 Alkaline Phosphatase 63 U/L (45-117) 10/06/24 04:19 Lipase 27 U/L (13-75) 10/06/24 04:19 Home Medications: Aspirin [Aspirin EC 81 MG] 81 mg PO DAILY 06/29/20 Magnesium Oxide 400 mg PO DAILY 06/29/20 Allopurinol 100 mg PO BEDTIME 10/14/22 Pantoprazole [Protonix Tab*] 20 mg PO BID 10/14/22 Atorvastatin Calcium 1 tab PO BEDTIME 10/04/24 Cetirizine HCl [Zyrtec] 10 mg PO BEDTIME PRN 10/04/24 Escitalopram Oxalate 1 tab PO DAILY 10/04/24 Levothyroxine Sodium [Unithroid] 50 mcg PO DAILY 10/04/24 Mirtazapine 15 mg PO BEDTIME 10/04/24 Tamsulosin [Flomax*] 0.4 mg PO BEDTIME 10/04/24 Hydrocodone 5/APAP 325 [Rusk 5/325] 1 tab PO Q8H PRN 7 Days #21 tab 10/08/24 New Medications: Hydrocodone 5/APAP 325 [Rusk 5/325] 1 tab PO Q8H PRN 7 Days #21 tab PRN Reason: Pain Scale 8-10 (Severe) Followup: NONE,NONE [Primary Care Provider] -
--- NOTE | 2024-10-08 15:09 | P.PN ---
Date of Service: 10/08/24 Subjective: he remains very weak He was unable to walk with physical therapy family is at bedside no fevers or chills Physical Exam: Gen: Alert, NAD, Orientedx3 CV: Regular rate and rhythm, no edema Pulm: Nonlabored respirations on 4L NC , Basilar crackles with end expiratory wheezing Abdomen: Soft, nontender, nondistended MSK: left clavicle tenderness Neuro: Mild aphasia with left-sided weakness Problem List: Bibasilar pneumonia Acute on chronic COPD exacerbation Acute hypoxic respiratory failure secondary to the above Left clavicle fracture Hx of CVA ESRD of HD Polycystic Kidney disease Constipation BPH Hypothyroidism Hyperlipidemia Hypertension GERD Bibasilar pneumonia Acute on chronic COPD exacerbation Acute hypoxic respiratory failure secondary to the above CT head: no acute findings. Remove bilateral MCA territory infarcts MRI brain: No acute CVA. Gliosis is present in the watershed zone bilaterally, greater on the left compatible with remote infarcts. CT chest/abd/pelvis: Patchy airspace opacity in both lung bases suspicious for pneumonia. Small triangular lesion in the left apex posteriorly is indeterminate but could be malignant. [id number] kidney disease with liver cysts Dr. Barreto, pulm consulted weaned off oxygen IV steroids deescalated to oral prednisone 10/07 Continue oral levaquin for 1 more day Left clavicle fracture Hx of CVA continue supportive care, pain control. Neuro consulted. No further input. Follow up in clinic continue statin, plavix, asa 81mg ESRD of HD Polycystic Kidney disease Nephrology consulted dialysis per nephro Constipation s/p mineral oil and glycolax yesterday BPH Hypothyroidism Hyperlipidemia Hypertension GERD continue flomax, synthroid, protonix, VTE: heparin sq Code: Full Dispo: consult social work for custodial vs home health Pending Home O2 setup
[2024-10-08] MEDS: ACETAMINOPHEN 500 MG TAB PO PRN (16:42)
[2024-10-08] MEDS: ARFORMOTEROL TARTRATE 15 MCG/2 ML VIAL.NEB NEB SCH (19:33)
--- NOTE | 2024-10-08 20:13 | PN ---
Date of Progress Note: 10/08/2024 Subjective: No overnight event. Had dialysis yesterday. We will discontinue Ortega. PT, OT. Objective: Vital Signs: Temperature 97.8, pulse 66, blood pressure 151/68. General: Awake and alert, not in distress. Neck: Supple. No elevated JVD. Heart: Regular rate and rhythm. Normal S1, S2. Chest: Clear to auscultation bilaterally. No rales or wheezes. Abdomen: Soft and nontender. Has a Ortega catheter. Extremities: No edema. Laboratory Data: White count 13.3, hemoglobin 11. Sodium 137, potassium 3.5. Assessment And Plan: 1. End-stage renal disease. Continue dialysis Thursday, Thursday, Thursday. Renal dose medication. Av oid NSAID and contrast. 2. Acute chronic obstructive pulmonary disease exacerbation, off oxygen and steroid tapering. 3. Left clavicular fracture. Continue supportive care. 4. History of cerebrovascular accident. PT, OT. 5. Anemia of chronic disease. Hemoglobin more than 11. We will discontinue Epogen. 6. Diabetes mellitus. Continue insulin. Thank you for allowing me to participate in the patient's care. Total time spent 55 minutes eliuin g documentation, reviewing labs, and placing orders. SAKSHI/LB Voice ID: [id number] Report ID: [id number]
[2024-10-09 06:19] LABS: Albumin 2.6 g/dL (3.4-5.0); Anion Gap 14.9 mEq/L (5.0-15.0); BUN Blood Urea Nitrogen 66.0 mg/dL (7-18); Glucose Level 96.0 mg/dL (74-106); Potassium 3.9 mEq/L (3.5-5.1)
--- NOTE | 2024-10-09 13:32 | P.PN ---
Date of Service: 10/10/19 Subjective: He is doing well this morning. Ortega catheter removed He has been able to sit up in bed with the assistance of nursing staff and his daughter Still remains very weak Denies any fevers and chills Good urine output overnight post Ortega Physical Exam: Gen: Alert, NAD, Orientedx3 CV: Regular rate and rhythm, no edema Pulm: Nonlabored respirations on 4L NC , Basilar crackles with end expiratory wheezing Abdomen: Soft, nontender, nondistended MSK: left clavicle tenderness Neuro: Mild aphasia with left-sided weakness Problem List: Bibasilar pneumonia Acute on chronic COPD exacerbation Acute hypoxic respiratory failure secondary to the above Left clavicle fracture Hx of CVA ESRD of HD Polycystic Kidney disease Constipation BPH Hypothyroidism Hyperlipidemia Hypertension GERD Bibasilar pneumonia Acute on chronic COPD exacerbation Acute hypoxic respiratory failure secondary to the above CT head: no acute findings. Remove bilateral MCA territory infarcts MRI brain: No acute CVA. Gliosis is present in the watershed zone bilaterally, greater on the left compatible with remote infarcts. CT chest/abd/pelvis: Patchy airspace opacity in both lung bases suspicious for pneumonia. Small triangular lesion in the left apex posteriorly is indeterminate but could be malignant. [id number] kidney disease with liver cysts Dr. Barreto, pulm consulted weaned off oxygen IV steroids deescalated to oral prednisone 10/07 Finish aquin ThursdayOctober 11 Left clavicle fracture Hx of CVA continue supportive care, pain control. Neuro consulted. No further input. Follow up in clinic continue statin, plavix, asa 81mg ESRD of HD Polycystic Kidney disease Nephrology consulted dialysis per nephro Constipation s/p mineral oil and glycolax yesterday BPH Hypothyroidism Hyperlipidemia Hypertension GERD continue flomax, synthroid, protonix, VTE: heparin sq Code: Full Dispo: consult social work for jail vs home health Pending Home O2 setup
[2024-10-09] MEDS ORDERED: LIDOCAINE VISCOUS 2% 10ML ORAL SOLN ONE (18:20)
[2024-10-09] MEDS: TAMSULOSIN 0.4 MG SR CAP PO SCH (20:49)
[2024-10-10 08:55] LABS: Absolute Lymphocytes (CBC) 2.2 K/uL (0.7-4.9); Hematocrit 33.3 % (39.6-49.0); Hemoglobin 11.2 g/dL (13.6-17.9); MCH 31.2 pg (27.0-35.0); MCHC 33.7 g/dL (32.0-36.0); MCV 92.7 fL (80-100); MPV 7.5 fL (7.6-11.3); Nucleated RBC Absolute Count 0.0 (0-0); Nucleated Red Blood Cells % 0.1 % (0-0); RBC Red Blood Cell Count 3.59 M/uL (4.33-5.43); White Blood Count 13.50 thou/uL (4.3-10.9)
[2024-10-10 09:12] LABS: ALT/SGPT < 14 U/L (16-61); AST/SGOT < 10 U/L (15-37); Albumin 2.4 g/dL (3.4-5.0); Albumin/Globulin Ratio 0.8 (1.1-1.8); Alkaline Phosphatase 45 U/L (45-117); Anion Gap 16.1 mEq/L (5.0-15.0); BUN Blood Urea Nitrogen 81 mg/dL (7-18); Globulin 3.2 g/dL (2.3-3.5); Glucose Level 94 mg/dL (74-106); Potassium 4.1 mEq/L (3.5-5.1)
[2024-10-10] MEDS: BISACODYL 10 MG RECTAL SUPP PR PRN (09:47)
[2024-10-10 10:12] LABS: Differential Total Cells Count 100; Segmented Neutrophils 70 % (40-80)
[2024-10-10 10:13] LABS: Blood Morphology Comment NOT SEEN (NOT SEEN)
--- NOTE | 2024-10-10 15:51 | P.PN ---
Date of Service: 10/10/24 Subjective: He feels stronger today Able to insert coud cath last night Denies fevers and chills Today they are considering taking him home with home health if he is strong Endorses constipation Physical Exam: Gen: Alert, NAD, Orientedx3 CV: Regular rate and rhythm, no edema Pulm: Nonlabored respirations on 4L NC , Basilar crackles with end expiratory wheezing Abdomen: Soft, nontender, nondistended MSK: left clavicle tenderness Neuro: Mild aphasia with left-sided weakness Problem List: Bibasilar pneumonia Acute on chronic COPD exacerbation Acute hypoxic respiratory failure secondary to the above Left clavicle fracture Hx of CVA ESRD of HD Polycystic Kidney disease Constipation BPH Hypothyroidism Hyperlipidemia Hypertension GERD Bibasilar pneumonia Acute on chronic COPD exacerbation Acute hypoxic respiratory failure secondary to the above CT head: no acute findings. Remove bilateral MCA territory infarcts MRI brain: No acute CVA. Gliosis is present in the watershed zone bilaterally, greater on the left compatible with remote infarcts. CT chest/abd/pelvis: Patchy airspace opacity in both lung bases suspicious for pneumonia. Small triangular lesion in the left apex posteriorly is indeterminate but could be malignant. [id number] kidney disease with liver cysts Dr. Barreto, pulm consulted weaned off oxygen IV steroids deescalated to oral prednisone 10/07 Finish Levaquin ThursdayOctober 11 Left clavicle fracture Hx of CVA continue supportive care, pain control. Neuro consulted. No further input. Follow up in clinic continue statin, plavix, asa 81mg ESRD of HD Polycystic Kidney disease Dialysis today dialysis per nephro Constipation s/p mineral oil and glycolax yesterday O'clock suppository BPH Hypothyroidism Hyperlipidemia Hypertension GERD continue flomax, synthroid, protonix, restart levothyroxine Currently with coud catheter VTE: heparin sq Code: Full Dispo: consult social work for snf vs home health Pending Home with home health or snf facility
[2024-10-10] MEDS: HYDROCODONE/APAP 5/325 MG TAB PO PRN (17:24)
--- NOTE | 2024-10-11 01:59 | PN ---
Date of Progress Note: 10/10/2024 Chief Complaint: End-stage renal disease. Subjective: The patient today denies complaints. Physical Examination: Lungs: Clear to auscultation bilaterally. Heart: S1, S2. Abdomen: Soft, benign, nontender. Extremities: Slight edema. Impression And Plan: 1. End-stage renal disease. Continue dialysis on Thursday, Thursday, Thursday. 2. Acute chronic obstructive pulmonary disease exacerbation, on oxygen. Continue to wean off steroid s. 3. History of cerebrovascular accident. The patient is undergoing physical therapy. 4. Anemia. Hemoglobin is 11. Epogen was stopped. 5. Diabetes mellitus with renal manifestation. Continue insulin. EB/MODL Voice ID: [id number] Report ID: [id number]
[2024-10-11] MEDS: LEVOTHYROXINE SOD 0.025 MG TAB PO SCH (06:31)
--- NOTE | 2024-10-11 15:35 | P.PN ---
Date of Service: 10/11/24 69-year-old gentleman, well known to me from the dialysis with significant past medical history of end-stage renal disease, on hemodial ysis, home hemodialysis Thursday, Thursday, Thursday, last dialysis yesterday, CVA, hypertension, polycystic kidney disease, PAD, the patient recently was started on home dialysis. The patient had fall with clavicular fracture. The patient was started on pain medication. Since then, patient started having some altered mental status, did not change after dialysis, the patient had also urine retention end up with Ortega and leg bag, came to the hospital for that. Next, the patient started having cough with yellowish sputum for that reason, reported to the hospital. The patient continued to be confused. Physical exam Temp Pulse Resp BP Pulse Ox 98.1 F 69 16 101/56 L 92 10/11/24 08:00 10/11/24 12:58 10/11/24 08:00 10/11/24 12:58 10/11/24 08:00 General: When I saw the patient, the patient is lying in bed. Chest: Faint rales bilateral. Heart: S1, S2 systolic murmur. Abdomen: Soft, nontender. Extremities: No edema. Neurologic: Alert. Slurred speech, pleasantly confused. No focality. Laboratory Last Values WBC 10.40 thou/uL (4.3-10.9) 10/03/24 21:03 RBC 3.49 M/uL (4.33-5.43) L 10/03/24 21:03 Hgb 10.8 g/dL (13.6-17.9) L D 10/03/24 21:03 Hct 32.9 % (39.6-49.0) L 10/03/24 21:03 MCV 94.2 fL (80-100) 10/03/24 21:03 MCH 31.0 pg (27.0-35.0) 10/03/24 21: MCHC 32.9 g/dL (32.0-36.0) 10/03/24 21:03 RDW 15.8 % (12.1-15.2) H 10/03/24 21:03 Plt Count 219 thou/uL (152-406) 10/03/24 21:03 MPV 7.9 fL (7.6-11.3) 10/03/24 21:03 Neutrophils % 78.6 % (41.7-73.7) H 10/03/24 21:03 Lymphocytes % 7.5 % (15.3-44.8) L 10/03/24 21:03 Monocytes % 11.4 % (3.3-12.3) 10/03/24 21:03 Eosinophils % 1.9 % (0-4.4) 10/03/24 21:03 Basophils % 0.6 % (0-1.3) 10/03/24 21:03 Absolute Neutrophils 8.2 K/uL (1.8-8.0) H 10/03/24 21:03 Absolute Lymphocytes 0.8 K/uL (0.7-4.9) 10/03/24 21:03 Absolute Monocytes 1.2 K/uL (0.1-1.3) 10/03/24 21:03 Absolute Eosinophils 0.2 K/uL (0-0.5) 10/03/24 21:03 Absolute Basophils 0.1 K/uL (0-0.5) 10/03/24 21:03 PT 13.9 SECONDS (10-13.0) H 10/03/24 21:03 INR 1.24 10/03/24 21:03 Sodium 135 mEq/L (136-145) L 10/03/24 21:03 Potassium 4.0 mEq/L (3.5-5.1) 10/03/24 21:03 Chloride 100 mEq/L (98-107) 10/03/24 21:03 Carbon Dioxide 26 mEq/L (21-32) 10/03/24 21:03 Anion Gap 13.0 mEq/L (5.0-15.0) 10/03/24 21:03 BUN 18 mg/dL (7-18) 10/03/24 21:03 Creatinine 4.40 mg/dL (0.70-1.30) H 10/03/24 21:03 Est GFR (CKD-EPI) 14 ml/min (=/>90) L 10/03/24 21:03 Glucose 85 mg/dL (74-106) 10/03/24 21:03 Calcium 9.1 mg/dL (8.5-10.1) D 10/03/24 21:03 Magnesium 1.7 mg/dL (1.6-2.4) 10/03/24 21:03 Total Bilirubin 0.8 mg/dL (0.2-1.0) 10/03/24 21:03 Direct Bilirubin 0.3 mg/dL (0-0.2) H 10/03/24 21:03 Indirect Bilirubin 0.5 mg/dL (0.2-0.8) 10/03/24 21:03 AST < 10 U/L (15-37) L 10/03/24 21:03 ALT < 14 U/L (16-61) L 10/03/24 21:03 Alkaline Phosphatase 68 U/L (45-117) 10/03/24 21:03 Troponin I High Sens 19.8 pg/mL (<58.9) 10/03/24 21:03 NT-Pro-B Natriuret Pep 8614 pg/mL (<125) H 10/03/24 21:03 Serum Total Protein 6.7 g/dL (6.4-8.2) 10/03/24 21:03 Albumin 2.7 g/dL (3.4-5.0) L 10/03/24 21:03 Globulin 4.0 g/dL (2.3-3.5) H 10/03/24 21:03 Albumin/Globulin Ratio 0.7 (1.1-1.8) L 10/03/24 21:03 Lipase 7 U/L (13-75) L 10/03/24 21:03 Urine Color Light-yellow (Yellow) 10/03/24: Urine Clarity Extremely turbid (Clear) H 10/03/24: Urine pH 8.0 (5.0-7.0) H 10/03/24: Ur Specific Remer 1.006 (1.005-1.030) 10/03/24: Glucose (UA)(Auto) Negative (Negative) 10/03/24: Urine Ketones Negative (Negative) 10/03/24: Urine Blood 3+ (Negative) H 10/03/24: Urine Nitrite Negative (Negative) 10/03/24: Urine Bilirubin Negative (Negative) 10/03/24: Urine Urobilinogen Normal (Normal) 08/04/25 22:27 Ur Leukocyte Esterase 500 Kiarra/uL (Negative) H 10/03/24 22:27 Urine RBC 11-20 /HPF (None Seen) H 10/03/24 22:27 Urine WBC 20-50 /HPF (<5) H 10/03/24 22:27 Ur Squamous Epith Cells None seen /HPF (None Seen) 10/03/24 22:27 U Non-Squamous Epi Cells <5 /HPF (None Seen) 10/03/24 22:27 Urine Bacteria None seen /HPF (<20) 10/03/24 22:27 Urine Culture Reflexed Reflexed 10/03/24 22:27 Urine Total Protein 2+ (Negative) H 10/03/24 22:27 Acetaminophen (Acetaminophen 500 Mg Tab) 500 mg PO Q4HP PRN PRN Reason: Pain scale 5-7 (Moderate) Last Admin: 10/09/24 15:20 Dose: 500 mg Hydrocodone Bitart/Acetaminophen (Hydrocodone/Apap 5/325 Mg Tab) 1 tab PO Q6H PRN PRN Reason: Pain scale 5-7 (Moderate) Last Admin: 10/11/24 09:50 Dose: 1 tab Albuterol Sulfate (Albuterol 2.5 Mg/3 Ml Neb Brenda) 2.5 mg NEB [id number] PRN PRN Reason: SHORTNESS OF BREATH Allopurinol (Allopurinol 100 Mg Tab) 100 mg PO BEDTIME [facility] Last Admin: 10/10/24 20:37 Dose: 100 mg Arformoterol Tartrate (Arformoterol Tartrate 15 Mcg/2 Ml Vial.Neb) 15 mcg NEB BIDRESP [facility] Last Admin: 10/11/24 08:13 Dose: 15 mcg Aspirin (Aspirin Ec 81 Mg Tab) 81 mg PO DAILY [facility] Last Admin: 10/11/24 09:42 Dose: 81 mg Atorvastatin Calcium (Atorvastatin 40 Mg Tab) 40 mg PO BEDTIME [facility] Last Admin: 10/10/24 20:37 Dose: 40 mg Benzonatate (Benzonatate 100 Mg Cap) 100 mg PO TID PRN PRN Reason: COUGH Last Admin: 10/07/24 15:27 Dose: 100 mg Bisacodyl (Bisacodyl 10 Mg Rectal Supp) 10 mg LA DAILY PRN PRN Reason: CONSTIPATION Last Admin: 10/10/24 09:47 Dose: 10 mg Cetirizine HCl (Cetirizine Hcl 5 Mg Tablet) 10 mg PO BEDTIME PRN PRN Reason: ALLERGIES Clopidogrel Bisulfate (Clopidogrel 75 Mg Tablet) 75 mg PO DAILY [facility] Last Admin: 10/11/24 09:42 Dose: 75 mg Docusate Sodium (Docusate Na 100 Mg Cap) 100 mg PO BID [facility] Last Admin: 10/11/24 09:42 Dose: 100 mg Escitalopram Oxalate (Escitalopram Oxalate 10 Mg Tablet) 10 mg PO DAILY [facility] Last Admin: 10/11/24 09:42 Dose: 10 mg Guaifenesin/Codeine Phosphate (Guaifenesin/Codeine 5ml Ucup) 10 ml PO QID PRN PRN Reason: COUGH Last Admin: 10/07/24 15:26 Dose: 10 ml Heparin Sodium (Porcine) (Heparin 5000 Unit/Ml 1 Ml Vial) 5,000 unit SQ Q8HR [facility] Last Admin: 10/11/24 09:42 Dose: 5,000 unit Heparin Sodium (Porcine) (Heparin 1,000 Unit/Ml Vial) 6,000 unit IV EVERY HD PRN PRN Reason: FOR DIALYSIS CATHETER CARE Last Admin: 10/10/24 14:34 Dose: 6,000 unit Heparin Sodium (Porcine) (Heparin 1,000 Unit/Ml Vial) 5,000 unit IV EVERY HD PRN PRN Reason: Prevent HD System Clotting Last Admin: 10/10/24 11:30 Dose: 5,000 unit Insulin Human Regular (Insulin Regular (Human) 100 Unit/Ml) 0 unit SQ ACHS [facility]; Protocol Last Admin: 10/11/24 11:30 Dose: Not Given Ipratropium Dickerson (Ipratropium Brom 0.5mg/2.5ml) 0.5 mg NEB [id number] PRN PRN Reason: SHORTNESS OF BREATH Levofloxacin (Levofloxacin 500 Mg Tab) 500 mg PO Q48H [facility] Last Admin: 10/09/24 20:50 Dose: 500 mg Levothyroxine Sodium (Levothyroxine Sod 0.025 Mg Tab) 0.05 mg PO DAILYAC [facility] Last Admin: 10/11/24 06:31 Dose: 0.05 mg Melatonin (Melatonin 3 Mg Tablet) 3 mg PO BEDTIME PRN PRN PRN Reason: INSOMNIA Last Admin: 10/08/24 20:11 Dose: 3 mg Mineral Oil (Mineral Oil Enema 135 Ml Btl) 133 ml LA 1X [facility] Last Admin: 10/10/24 20:00 Dose: Not Given Mirtazapine (Mirtazapine 15 Mg Tab) 15 mg PO BEDTIME [facility] Last Admin: 10/10/24 20:37 Dose: 15 mg Morphine Sulfate (Morphine 4 Mg/Ml Syr) 4 mg IV Q6H PRN PRN Reason: Pain scale 8-10 (Severe) Last Admin: 10/10/24 16:00 Dose: 4 mg Pantoprazole Sodium (Pantoprazole 40mg Tablet) 40 mg PO ACB [facility]; Protocol Last Admin: 10/11/24 09:41 Dose: 40 mg Sodium Biphosphate/Sodium Phosphate (Fleet Enema Adult) 133 ml LA DAILY PRN PRN Reason: CONSTIPATION Tamsulosin HCl (Tamsulosin 0.4 Mg Sr Cap) 0.4 mg PO BID [facility] Last Admin: 10/11/24 09:42 Dose: 0.4 mg Assessment And Plan: 1. end-stage renal disease normal volume I going to continue the patient on dialysis Thursday, Thursday, Thursday. We will schedule the patient for dialysis tomorrow. Patient to clear from the renal standpoint for DC planning 2. Anemia of chronic kidney disease. Continue ROB. 3. Hypertension, controlled, optimal. Continue current treatment. 4. Secondary hyperparathyroidism. I am going to follow up phosphorus and we will decide on binder. 5. Altered mental status /history of CVA with history of the previous stroke. Resume Plavix. 6. Diabetes as by primary. 7. Bronchitis. Continue current antibiotic dose appropriate. 8-deconditioning continue PT OT patient very evaluated by rehab discussed with the patient and family that need to participate in physical therapy otherwise he can end up in jail patient and verbalized understanding Time spent examining the patient [id number], reviewing data, lab and radiology, placing order, discussing the case with the patient, discussing the case with the by bedside, discussing the case with the steam conditioner operator including hospitalist and nursing staff more than 55 minutes.
--- NOTE | 2024-10-11 16:23 | P.PN ---
Date of Service: 10/11/24 Subjective: Doing better today His is asking about inpatient rehab He denies fevers and chills Overall she feels as if he is getting stronger We discussed using his pain medication at the time of physical therapy to work through some of the difficult exercises Moving his bowels now Physical Exam: Gen: Alert, NAD, Orientedx3 CV: Regular rate and rhythm, no edema Pulm: Nonlabored respirations on 4L NC , Basilar crackles with end expiratory wheezing Abdomen: Soft, nontender, nondistended MSK: left clavicle tenderness Neuro: Mild aphasia with left-sided weakness Problem List: Bibasilar pneumonia Acute on chronic COPD exacerbation Acute hypoxic respiratory failure secondary to the above Left clavicle fracture Hx of CVA ESRD of HD Polycystic Kidney disease Constipation BPH Hypothyroidism Hyperlipidemia Hypertension GERD Bibasilar pneumonia Acute on chronic COPD exacerbation Acute hypoxic respiratory failure secondary to the above CT head: no acute findings. Remove bilateral MCA territory infarcts MRI brain: No acute CVA. Gliosis is present in the watershed zone bilaterally, greater on the left compatible with remote infarcts. CT chest/abd/pelvis: Patchy airspace opacity in both lung bases suspicious for pneumonia. Small triangular lesion in the left apex posteriorly is indeterminate but could be malignant. [id number] kidney disease with liver cysts Dr. Barreto, pulm consulted weaned off oxygen IV steroids deescalated to oral prednisone 10/07 Finish Levaquin ThursdayOctober 13 as it is every other day Left clavicle fracture Hx of CVA continue supportive care, pain control. Neuro consulted. No further input. Follow up in clinic continue statin, plavix, asa 81mg ESRD of HD Polycystic Kidney disease Dialysis today dialysis per nephro Constipation s/p mineral oil and glycolax yesterday O'clock suppository BPH Hypothyroidism Hyperlipidemia Hypertension GERD continue flomax, synthroid, protonix, restart levothyroxine Currently with coud catheter VTE: heparin sq Code: Full Dispo: consult social work for fdc vs home health Pending Home with home health or [facility]dc facility
--- NOTE | 2024-10-12 11:52 | P.PN ---
Date of Service: 10/12/24 69-year-old gentleman, well known to me from the dialysis with significant past medical history of end-stage renal disease, on hemodial ysis, home hemodialysis Thursday, Thursday, Thursday, last dialysis yesterday, CVA, hypertension, polycystic kidney disease, PAD, the patient recently was started on home dialysis. The patient had fall with clavicular fracture. The patient was started on pain medication. Since then, patient started having some altered mental status, did not change after dialysis, the patient had also urine retention end up with Ortega and leg bag, came to the hospital for that. Next, the patient started having cough with yellowish sputum for that reason, reported to the hospital. The patient continued to be confused. Physical exam Temp Pulse Resp BP Pulse Ox 98.7 F 68 18 118/56 L 90 L 10/12/24 08:00 10/12/24 08:00 10/12/24 08:00 10/12/24 08:00 10/12/24 08:00 General: When I saw the patient, the patient is lying in bed. Chest: Faint rales bilateral. Heart: S1, S2 systolic murmur. Abdomen: Soft, nontender. Extremities: No edema. Neurologic: Alert. Slurred speech, pleasantly confused. No focality. Acetaminophen (Acetaminophen 500 Mg Tab) 500 mg PO Q4HP PRN PRN Reason: Pain scale 5-7 (Moderate) Last Admin: 10/11/24 20:42 Dose: 500 mg Hydrocodone Bitart/Acetaminophen (Hydrocodone/Apap 5/325 Mg Tab) 1 tab PO Q6H PRN PRN Reason: Pain scale 5-7 (Moderate) Last Admin: 10/11/24 09:50 Dose: 1 tab Albuterol Sulfate (Albuterol 2.5 Mg/3 Ml Neb Brenda) 2.5 mg NEB [id number] PRN PRN Reason: SHORTNESS OF BREATH Allopurinol (Allopurinol 100 Mg Tab) 100 mg PO BEDTIME [facility] Last Admin: 10/11/24 20:42 Dose: 100 mg Arformoterol Tartrate (Arformoterol Tartrate 15 Mcg/2 Ml Vial.Neb) 15 mcg NEB BIDRESP [facility] Last Admin: 10/12/24 08:14 Dose: 15 mcg Aspirin (Aspirin Ec 81 Mg Tab) 81 mg PO DAILY [facility] Last Admin: 10/12/24 09:13 Dose: 81 mg Atorvastatin Calcium (Atorvastatin 40 Mg Tab) 40 mg PO BEDTIME [facility] Last Admin: 10/11/24 20:42 Dose: 40 mg Benzonatate (Benzonatate 100 Mg Cap) 100 mg PO TID PRN PRN Reason: COUGH Last Admin: 10/07/24 15:27 Dose: 100 mg Bisacodyl (Bisacodyl 10 Mg Rectal Supp) 10 mg [place] DAILY PRN PRN Reason: CONSTIPATION Last Admin: 10/10/24 09:47 Dose: 10 mg Cetirizine HCl (Cetirizine Hcl 5 Mg Tablet) 10 mg PO BEDTIME PRN PRN Reason: ALLERGIES Clopidogrel Bisulfate (Clopidogrel 75 Mg Tablet) 75 mg PO DAILY [facility] Last Admin: 10/12/24 09:13 Dose: 75 mg Docusate Sodium (Docusate Na 100 Mg Cap) 100 mg PO BID [facility] Last Admin: 10/12/24 09:13 Dose: 100 mg Escitalopram Oxalate (Escitalopram Oxalate 10 Mg Tablet) 10 mg PO DAILY [facility] Last Admin: 10/12/24 09:14 Dose: 10 mg Guaifenesin/Codeine Phosphate (Guaifenesin/Codeine 5ml Ucup) 10 ml PO QID PRN PRN Reason: COUGH Last Admin: 10/07/24 15:26 Dose: 10 ml Heparin Sodium (Porcine) (Heparin 5000 Unit/Ml 1 Ml Vial) 5,000 unit SQ Q8HR [facility] Last Admin: 10/12/24 09:13 Dose: 5,000 unit Heparin Sodium (Porcine) (Heparin 1,000 Unit/Ml Vial) 6,000 unit IV EVERY HD PRN PRN Reason: FOR DIALYSIS CATHETER CARE Last Admin: 10/10/24 14:34 Dose: 6,000 unit Heparin Sodium (Porcine) (Heparin 1,000 Unit/Ml Vial) 5,000 unit IV EVERY HD PRN PRN Reason: Prevent HD System Clotting Last Admin: 10/10/24 11:30 Dose: 5,000 unit Insulin Human Regular (Insulin Regular (Human) 100 Unit/Ml) 0 unit SQ ACHS [facility]; Protocol Last Admin: 10/12/24 07:30 Dose: Not Given Ipratropium [place] (Ipratropium Brom 0.5mg/2.5ml) 0.5 mg NEB [id number] PRN PRN Reason: SHORTNESS OF BREATH Levofloxacin (Levofloxacin 500 Mg Tab) 500 mg PO Q48H [facility] Last Admin: 10/11/24 20:43 Dose: 500 mg Levothyroxine Sodium (Levothyroxine Sod 0.025 Mg Tab) 0.05 mg PO DAILYAC [facility] Last Admin: 10/12/24 05:32 Dose: 0.05 mg Melatonin (Melatonin 3 Mg Tablet) 3 mg PO BEDTIME PRN PRN PRN Reason: INSOMNIA Last Admin: 10/08/24 20:11 Dose: 3 mg Mineral Oil (Mineral Oil Enema 135 Ml Btl) 133 ml [place] 1X [facility] Last Admin: 10/11/24 20:00 Dose: Not Given Mirtazapine (Mirtazapine 15 Mg Tab) 15 mg PO BEDTIME [facility] Last Admin: 10/11/24 20:43 Dose: 15 mg Morphine Sulfate (Morphine 4 Mg/Ml Syr) 4 mg IV Q6H PRN PRN Reason: Pain scale 8-10 (Severe) Last Admin: 10/10/24 16:00 Dose: 4 mg Pantoprazole Sodium (Pantoprazole 40mg Tablet) 40 mg PO ACB [facility]; Protocol Last Admin: 10/12/24 09:13 Dose: 40 mg Sodium Biphosphate/Sodium Phosphate (Fleet Enema Adult) 133 ml [place] DAILY PRN PRN Reason: CONSTIPATION Tamsulosin HCl (Tamsulosin 0.4 Mg Sr Cap) 0.4 mg PO BID [facility] Last Admin: 10/12/24 09:13 Dose: 0.4 mg Laboratory Last Values WBC 10.40 thou/uL (4.3-10.9) 10/03/24 21:03 RBC 3.49 M/uL (4.33-5.43) L 10/03/24 21:03 Hgb 10.8 g/dL (13.6-17.9) L D 10/03/24 21:03 Hct 32.9 % (39.6-49.0) L 10/03/24 21:03 MCV 94.2 fL (80-100) 10/03/24 21:03 MCH 31.0 pg (27.0-35.0) 10/03/24 21:03 MCHC 32.9 g/dL (32.0-36.0) 10/03/24 21:03 RDW 15.8 % (12.1-15.2) H 10/03/24 21:03 Plt Count 219 thou/uL (152-406) 10/03/24 21:03 MPV 7.9 fL (7.6-11.3) 10/03/24 21:03 Neutrophils % 78.6 % (41.7-73.7) H 10/03/24 21:03 Lymphocytes % 7.5 % (15.3-44.8) L 10/03/24 21:03 Monocytes % 11.4 % (3.3-12.3) 10/03/24 21:03 Eosinophils % 1.9 % (0-4.4) 10/03/24 21:03 Basophils % 0.6 % (0-1.3) 10/03/24 21:03 Absolute Neutrophils 8.2 K/uL (1.8-8.0) H 10/03/24 21:03 Absolute Lymphocytes 0.8 K/uL (0.7-4.9) 10/03/24 21:03 Absolute Monocytes 1.2 K/uL (0.1-1.3) 10/03/24 21:03 Absolute Eosinophils 0.2 K/uL (0-0.5) 10/03/24 21:03 Absolute Basophils 0.1 K/uL (0-0.5) 10/03/24 21:03 PT 13.9 SECONDS (10-13.0) H 10/03/24 21:03 INR 1.24 10/03/24 21:03 Sodium 135 mEq/L (136-145) L 10/03/24 21:03 Potassium 4.0 mEq/L (3.5-5.1) 10/03/24 21:03 Chloride 100 mEq/L (98-107) 10/03/24 21:03 Carbon Dioxide 26 mEq/L (21-32) 10/03/24 21:03 Anion Gap 13.0 mEq/L (5.0-15.0) 10/03/24 21:03 BUN 18 mg/dL (7-18) 10/03/24 21:03 Creatinine 4.40 mg/dL (0.70-1.30) H 10/03/24 21:03 Est GFR (CKD-EPI) 14 ml/min (=/>90) L 10/03/24 21:03 Glucose 85 mg/dL (74-106) 10/03/24 21:03 Calcium 9.1 mg/dL (8.5-10.1) D 10/03/24 21:03 Magnesium 1.7 mg/dL (1.6-2.4) 10/03/24 21:03 Total Bilirubin 0.8 mg/dL (0.2-1.0) 10/03/24 21:03 Direct Bilirubin 0.3 mg/dL (0-0.2) H 10/03/24 21:03 Indirect Bilirubin 0.5 mg/dL (0.2-0.8) 10/03/24 21:03 AST < 10 U/L (15-37) L 10/03/24 21:03 ALT < 14 U/L (16-61) L 10/03/24 21:03 Alkaline Phosphatase 68 U/L (45-117) 10/03/24 21:03 Troponin I High Sens 19.8 pg/mL (<58.9) 10/03/24 21:03 NT-Pro-B Natriuret Pep 8614 pg/mL (<125) H 10/03/24 21:03 Serum Total Protein 6.7 g/dL (6.4-8.2) 10/03/24 21:03 Albumin 2.7 g/dL (3.4-5.0) L 10/03/24 21:03 Globulin 4.0 g/dL (2.3-3.5) H 10/03/24 21:03 Albumin/Globulin Ratio 0.7 (1.1-1.8) L 10/03/24 21:03 Lipase 7 U/L (13-75) L 10/03/24 21:03 Urine Color Light-yellow (Yellow) 10/03/24: Urine Clarity Extremely turbid (Clear) H 10/03/24: Urine pH 8.0 (5.0-7.0) H 10/03/24: Ur Specific [place] 1.006 (1.005-1.030) 10/03/24: Glucose (UA)(Auto) Negative (Negative) 10/03/24 22: Urine Ketones Negative (Negative) 10/03/24: Urine Blood 3+ (Negative) H 10/03/24: Urine Nitrite Negative (Negative) 10/03/24 22: Urine Bilirubin Negative (Negative) 10/03/24: Urine Urobilinogen Normal (Normal) 10/03/24 22: Ur Leukocyte Esterase 500 Kiarra/uL (Negative) H 10/03/24 22: Urine RBC 11-20 /HPF (None Seen) H 10/03/24 22: Urine WBC 20-50 /HPF (<5) H 10/03/24 22: Ur Squamous Epith Cells None seen /HPF (None Seen) 10/03/24 22: U Non-Squamous Epi Cells <5 /HPF (None Seen) 10/03/24 22: Urine Bacteria None seen /HPF (<20) 10/03/24: Urine Culture Reflexed Reflexed 10/03/24: Urine Total Protein 2+ (Negative) H 10/03/24 22: Assessment And Plan: 1. end-stage renal disease normal volume I going to continue the patient on dialysis Thursday, Thursday, Thursday. We will schedule the patient for dialysis tomorrow. Patient to clear from the renal standpoint for DC planning 2. Anemia of chronic kidney disease. Continue ROB. 3. Hypertension, controlled, optimal. Continue current treatment. 4. Secondary hyperparathyroidism. I am going to follow up phosphorus and we will decide on binder. 5. Altered mental status /history of CVA with history of the previous stroke. Resume Plavix. 6. Diabetes as by primary. 7. Bronchitis. Continue current antibiotic dose appropriate. 8-deconditioning continue PT OT continue PT OT Time spent examining the patient [id number], reviewing data, lab and radiology, placing order, discussing the case with the patient, discussing the case with the by bedside, discussing the case with the long line teamster including hospitalist and nursing staff more than 55 minutes.
--- NOTE | 2024-10-12 14:30 | P.PN ---
Subjective Date of Service: 10/12/24 Chief Complaint: Recent fall and weakness Subjective: Improving <Celsa Blue - Last Filed: 10/12/24 19:24> Date of Service: 10/12/24 <Etta Garibay - Last Filed: 10/12/24 21:29> Review of Systems General: Weakness Eyes: Unremarkable ENT: Unremarkable Respiratory: SOB with Excertion Cardiovascular: Unremarkable (Today what happened) Gastrointestinal: Unremarkable Genitourinary: Unremarkable Musculoskeletal: Unremarkable Integumentary: Unremarkable Neurological: Unremarkable Lymphatics: Unremarkable <Celsa Blue - Last Filed: 10/12/24 19:24> Physical Examination - Vital Signs Temperature: 98.6 F Blood Pressure: 102/51 Pulse: 73 Respirations: 18 Pulse Ox (%): 98 - Physical Exam General: Alert, In no apparent distress, Oriented x3, Cooperative HEENT: Atraumatic, PERRLA, EOMI Neck: Supple, JVD not distended Respiratory: Clear to auscultation bilaterally, Normal air movement Cardiovascular: No edema, Regular rate/rhythm, Normal S1 S2 Capillary refill: <2 Seconds Gastrointestinal: Normal bowel sounds, Non-distended, No tenderness Musculoskeletal: No clubbing, No tenderness Integumentary: No rashes Neurological: Normal speech, Normal tone, Normal affect Lymphatics: No axilla or inguinal lymphadenopathy <Celsa Blue - Last Filed: 10/12/24 19:24> Assessment And Plan - Plan Interval history. 10/12/2024. Patient seen at bedside. Dialysis planned for tomorrow. Dialysis schedule per global commodity manager. Continue nebulizer treatment. SNF pending. Fall precautions. Continue supportive care. Bibasilar pneumonia Acute on chronic COPD exacerbation Acute hypoxic respiratory failure secondary to the above Left clavicle fracture Hx of CVA ESRD of HD Polycystic Kidney disease Constipation BPH Hypothyroidism Hyperlipidemia Hypertension GERD Bibasilar pneumonia Acute on chronic COPD exacerbation Acute hypoxic respiratory failure secondary to the above CT head: no acute findings. Remove bilateral MCA territory infarcts MRI brain: No acute CVA. Gliosis is present in the watershed zone bilaterally, greater on the left compatible with remote infarcts. CT chest/abd/pelvis: Patchy airspace opacity in both lung bases suspicious for pneumonia. Small triangular lesion in the left apex posteriorly is indeterminate but could be malignant. [id number] kidney disease with liver cysts Dr. Barreto, pulm consulted weaned off oxygen IV steroids deescalated to oral prednisone 10/07 Finish Levaquin ThursdayOctober 13 as it is every other day Left clavicle fracture Hx of CVA continue supportive care, pain control. Neuro consulted. No further input. Follow up in clinic continue statin, plavix, asa 81mg ESRD of HD Polycystic Kidney disease Dialysis today dialysis per nephro Constipation s/p mineral oil and glycolax yesterday O'clock suppository BPH Hypothyroidism Hyperlipidemia Hypertension GERD continue flomax, synthroid, protonix, restart levothyroxine Currently with coud catheter VTE: heparin sq Code: Full Dispo: consult social work for [facility]ent[facility] vs home health Pending Home with home health or penitentiary facility Discharge Plan: Home Plan to discharge in: Greater than 2 days - Code Status/Comfort Care Code Status Assessed: Yes Physician Review: Patient Assessed, Agree with Above Assessment and Plan Critical Care: No <Celsa Blue - Last Filed: 10/12/24 19:24> Physician Review: Patient Assessed, Agree with Above Assessment and Plan <Etta Garibay - Last Filed: 10/12/24 21:29>
--- NOTE | 2024-10-13 12:23 | P.PN ---
Date of Service: 10/13/24 69-year-old gentleman, well known to me from the dialysis with significant past medical history of end-stage renal disease, on hemodial ysis, home hemodialysis Thursday, Thursday, Thursday, last dialysis yesterday, CVA, hypertension, polycystic kidney disease, PAD, the patient recently was started on home dialysis. The patient had fall with clavicular fracture. The patient was started on pain medication. Since then, patient started having some altered mental status, did not change after dialysis, the patient had also urine retention end up with Ortega and leg bag, came to the hospital for that. Next, the patient started having cough with yellowish sputum for that reason, reported to the hospital. The patient continued to be confused. Physical exam Temp Pulse Resp BP Pulse Ox 98.0 F 60 16 118/56 L 94 10/13/24 08:00 10/13/24 08:00 10/13/24 08:00 10/13/24 08:00 10/13/24 08:00 General: When I saw the patient, the patient is lying in bed. Chest: Faint rales bilateral. Heart: S1, S2 systolic murmur. Abdomen: Soft, nontender. Extremities: No edema. Neurologic: Alert. Slurred speech, pleasantly confused. No focality. Acetaminophen (Acetaminophen 500 Mg Tab) 500 mg PO Q4HP PRN PRN Reason: Pain scale 5-7 (Moderate) Last Admin: 10/12/24 18:02 Dose: 500 mg Hydrocodone Bitart/Acetaminophen (Hydrocodone/Apap 5/325 Mg Tab) 1 tab PO Q6H PRN PRN Reason: Pain scale 5-7 (Moderate) Last Admin: 10/12/24 15:14 Dose: 1 tab Albuterol Sulfate (Albuterol 2.5 Mg/3 Ml Neb Brenda) 2.5 mg NEB [id number] PRN PRN Reason: SHORTNESS OF BREATH Allopurinol (Allopurinol 100 Mg Tab) 100 mg PO BEDTIME [facility] Last Admin: 10/12/24 21:06 Dose: 100 mg Arformoterol Tartrate (Arformoterol Tartrate 15 Mcg/2 Ml Vial.Neb) 15 mcg NEB BIDRESP [facility] Last Admin: 10/13/24 08:00 Dose: 15 mcg Aspirin (Aspirin Ec 81 Mg Tab) 81 mg PO DAILY [facility] Last Admin: 10/13/24 08:44 Dose: 81 mg Atorvastatin Calcium (Atorvastatin 40 Mg Tab) 40 mg PO BEDTIME [facility] Last Admin: 10/12/24 21:06 Dose: 40 mg Benzonatate (Benzonatate 100 Mg Cap) 100 mg PO TID PRN PRN Reason: COUGH Last Admin: 10/07/24 15:27 Dose: 100 mg Bisacodyl (Bisacodyl 10 Mg Rectal Supp) 10 mg [place] DAILY PRN PRN Reason: CONSTIPATION Last Admin: 10/10/24 09:47 Dose: 10 mg Cetirizine HCl (Cetirizine Hcl 5 Mg Tablet) 10 mg PO BEDTIME PRN PRN Reason: ALLERGIES Clopidogrel Bisulfate (Clopidogrel 75 Mg Tablet) 75 mg PO DAILY [facility] Last Admin: 10/13/24 08:44 Dose: 75 mg Docusate Sodium (Docusate Na 100 Mg Cap) 100 mg PO BID [facility] Last Admin: 10/13/24 08:44 Dose: 100 mg Escitalopram Oxalate (Escitalopram Oxalate 10 Mg Tablet) 10 mg PO DAILY [facility] Last Admin: 10/13/24 09:09 Dose: 10 mg Guaifenesin/Codeine Phosphate (Guaifenesin/Codeine 5ml Ucup) 10 ml PO QID PRN PRN Reason: COUGH Last Admin: 10/07/24 15:26 Dose: 10 ml Heparin Sodium (Porcine) (Heparin 5000 Unit/Ml 1 Ml Vial) 5,000 unit SQ Q8HR [facility] Last Admin: 10/13/24 08:44 Dose: 5,000 unit Heparin Sodium (Porcine) (Heparin 1,000 Unit/Ml Vial) 6,000 unit IV EVERY HD PRN PRN Reason: FOR DIALYSIS CATHETER CARE Last Admin: 10/12/24 13:04 Dose: 6,000 unit Heparin Sodium (Porcine) (Heparin 1,000 Unit/Ml Vial) 5,000 unit IV EVERY HD PRN PRN Reason: Prevent HD System Clotting Last Admin: 10/12/24 10:00 Dose: 5,000 unit Insulin Human Regular (Insulin Regular (Human) 100 Unit/Ml) 0 unit SQ ACHS [facility]; Protocol Last Admin: 10/13/24 07:30 Dose: Not Given Ipratropium Panacea (Ipratropium Brom 0.5mg/2.5ml) 0.5 mg NEB [id number] PRN PRN Reason: SHORTNESS OF BREATH Levofloxacin (Levofloxacin 500 Mg Tab) 500 mg PO Q48H [facility] Last Admin: 10/11/24 20:43 Dose: 500 mg Levothyroxine Sodium (Levothyroxine Sod 0.025 Mg Tab) 0.05 mg PO DAILYAC [facility] Last Admin: 10/13/24 06:23 Dose: 0.05 mg Melatonin (Melatonin 3 Mg Tablet) 3 mg PO BEDTIME PRN PRN PRN Reason: INSOMNIA Last Admin: 10/08/24 20:11 Dose: 3 mg Mineral Oil (Mineral Oil Enema 135 Ml Btl) 133 ml [place] 1X [facility] Last Admin: 10/12/24 20:00 Dose: Not Given Mirtazapine (Mirtazapine 15 Mg Tab) 15 mg PO BEDTIME [facility] Last Admin: 10/12/24 21:06 Dose: 15 mg Morphine Sulfate (Morphine 4 Mg/Ml Syr) 4 mg IV Q6H PRN PRN Reason: Pain scale 8-10 (Severe) Last Admin: 10/10/24 16:00 Dose: 4 mg Pantoprazole Sodium (Pantoprazole 40mg Tablet) 40 mg PO ACB [facility]; Protocol Last Admin: 10/13/24 08:44 Dose: 40 mg Sodium Biphosphate/Sodium Phosphate (Fleet Enema Adult) 133 ml [place] DAILY PRN PRN Reason: CONSTIPATION Tamsulosin HCl (Tamsulosin 0.4 Mg Sr Cap) 0.4 mg PO BID [facility] Last Admin: 10/13/24 08:44 Dose: 0.4 mg Laboratory Last Values WBC 10.40 thou/uL (4.3-10.9) 10/03/24 21:03 RBC 3.49 M/uL (4.33-5.43) L 10/03/24 21:03 Hgb 10.8 g/dL (13.6-17.9) L D 10/03/24 21:03 Hct 32.9 % (39.6-49.0) L 10/03/24 21:03 MCV 94.2 fL (80-100) 10/03/24 21:03 MCH 31.0 pg (27.0-35.0) 10/03/24 21:03 MCHC 32.9 g/dL (32.0-36.0) 10/03/24 21:03 RDW 15.8 % (12.1-15.2) H 10/03/24 21:03 Plt Count 219 thou/uL (152-406) 10/03/24 21:03 MPV 7.9 fL (7.6-11.3) 10/03/24 21:03 Neutrophils % 78.6 % (41.7-73.7) H 10/03/24 21:03 Lymphocytes % 7.5 % (15.3-44.8) L 10/03/24 21:03 Monocytes % 11.4 % (3.3-12.3) 10/03/24 21:03 Eosinophils % 1.9 % (0-4.4) 10/03/24 21:03 Basophils % 0.6 % (0-1.3) 10/03/24 21:03 Absolute Neutrophils 8.2 K/uL (1.8-8.0) H 10/03/24 21:03 Absolute Lymphocytes 0.8 K/uL (0.7-4.9) 10/03/24 21:03 Absolute Monocytes 1.2 K/uL (0.1-1.3) 10/03/24 21:03 Absolute Eosinophils 0.2 K/uL (0-0.5) 10/03/24 21:03 Absolute Basophils 0.1 K/uL (0-0.5) 10/03/24 21:03 PT 13.9 SECONDS (10-13.0) H 10/03/24 21:03 INR 1.24 10/03/24 21:03 Sodium 135 mEq/L (136-145) L 10/03/24 21:03 Potassium 4.0 mEq/L (3.5-5.1) 10/03/24 21:03 Chloride 100 mEq/L (98-107) 10/03/24 21:03 Carbon Dioxide 26 mEq/L (21-32) 10/03/24 21:03 Anion Gap 13.0 mEq/L (5.0-15.0) 10/03/24 21:03 BUN 18 mg/dL (7-18) 10/03/24 21:03 Creatinine 4.40 mg/dL (0.70-1.30) H 10/03/24 21:03 Est GFR (CKD-EPI) 14 ml/min (=/>90) L 10/03/24 21:03 Glucose 85 mg/dL (74-106) 10/03/24 21:03 Calcium 9.1 mg/dL (8.5-10.1) D 10/03/24 21:03 Magnesium 1.7 mg/dL (1.6-2.4) 10/03/24 21:03 Total Bilirubin 0.8 mg/dL (0.2-1.0) 10/03/24 21:03 Direct Bilirubin 0.3 mg/dL (0-0.2) H 10/03/24 21:03 Indirect Bilirubin 0.5 mg/dL (0.2-0.8) 10/03/24 21:03 AST < 10 U/L (15-37) L 10/03/24 21:03 ALT < 14 U/L (16-61) L 10/03/24 21:03 Alkaline Phosphatase 68 U/L (45-117) 10/03/24 21:03 Troponin I High Sens 19.8 pg/mL (<58.9) 10/03/24 21:03 NT-Pro-B Natriuret Pep 8614 pg/mL (<125) H 10/03/24 21:03 Serum Total Protein 6.7 g/dL (6.4-8.2) 10/03/24 21:03 Albumin 2.7 g/dL (3.4-5.0) L 10/03/24 21:03 Globulin 4.0 g/dL (2.3-3.5) H 10/03/24 21:03 Albumin/Globulin Ratio 0.7 (1.1-1.8) L 10/03/24 21:03 Lipase 7 U/L (13-75) L 10/03/24 21:03 Urine Color Light-yellow (Yellow) 10/03/24: Urine Clarity Extremely turbid (Clear) H 10/03/24 22: Urine pH 8.0 (5.0-7.0) H 10/03/24: Ur Specific [place] 1.006 (1.005-1.030) 10/03/24: Glucose (UA)(Auto) Negative (Negative) 10/03/24 22: Urine Ketones Negative (Negative) 10/03/24 22: Urine Blood 3+ (Negative) H 08/04/25 22:27 Urine Nitrite Negative (Negative) 10/03/24 22:27 Urine Bilirubin Negative (Negative) 10/03/24 22: Urine Urobilinogen Normal (Normal) 10/03/24 22: Ur Leukocyte Esterase 500 Kiarra/uL (Negative) H 10/03/24 22:27 Urine RBC 11-20 /HPF (None Seen) H 10/03/24 22:27 Urine WBC 20-50 /HPF (<5) H 10/03/24 22: Ur Squamous Epith Cells None seen /HPF (None Seen) 10/03/24 22: U Non-Squamous Epi Cells <5 /HPF (None Seen) 10/03/24 22: Urine Bacteria None seen /HPF (<20) 10/03/24 22: Urine Culture Reflexed Reflexed 10/03/24 22: Urine Total Protein 2+ (Negative) H 10/03/24 22:27 Assessment And Plan: 1. end-stage renal disease normal volume I going to continue the patient on dialysis Thursday, Thursday, Thursday. We will schedule the patient for dialysis tomorrow. Patient to clear from the renal standpoint for DC planning 2. Anemia of chronic kidney disease. Continue ROB. 3. Hypertension, controlled, optimal. Continue current treatment. 4. Secondary hyperparathyroidism. I am going to follow up phosphorus and we will decide on binder. 5. Altered mental status /history of CVA with history of the previous stroke. Resume Plavix. 6. Diabetes as by primary. 7. Bronchitis. Continue current antibiotic dose appropriate. 8-deconditioning continue PT OT continue PT OT Time spent examining the patient [id number], reviewing data, lab and ra diology, placing order, discussing the case with the patient, discussing the case with the by bedside, discussing the case with the wallpaper remover steam including hospitalist and nursing staff more than 55 minutes.
--- NOTE | 2024-10-13 16:47 | P.PN ---
Date of Service: 10/13/24 Subjective: Doing well. No acute complaints. is still hopeful he will get into rehab He is eating and drinking better He is making good urine and is having regular bowel movement Physical Exam: Gen: Alert, NAD, Orientedx3 CV: Regular rate and rhythm, no edema Pulm: Nonlabored respirations on 4L NC , Basilar crackles with end expiratory wheezing Abdomen: Soft, nontender, nondistended MSK: left clavicle tenderness Neuro: Mild aphasia with left-sided weakness Problem List: Bibasilar pneumonia Acute on chronic COPD exacerbation Acute hypoxic respiratory failure secondary to the above Left clavicle fracture Hx of CVA ESRD of HD Polycystic Kidney disease Constipation BPH Hypothyroidism Hyperlipidemia Hypertension GERD Bibasilar pneumonia Acute on chronic COPD exacerbation Acute hypoxic respiratory failure secondary to the above CT head: no acute findings. Remove bilateral MCA territory infarcts MRI brain: No acute CVA. Gliosis is present in the watershed zone bilaterally, greater on the left compatible with remote infarcts. CT chest/abd/pelvis: Patchy airspace opacity in both lung bases suspicious for pneumonia. Small triangular lesion in the left apex posteriorly is indeterminate but could be malignant. [id number] kidney disease with liver cysts Dr. Barreto, pulm consulted weaned off oxygen IV steroids deescalated to oral prednisone 10/07 Completed Levaquin Left clavicle fracture Hx of CVA continue supportive care, pain control. Neuro consulted. No further input. Follow up in clinic continue statin, plavix, asa 81mg ESRD of HD Polycystic Kidney disease Dialysis today dialysis per nephro Constipation s/p mineral oil and glycolax yesterday O'clock suppository BPH Hypothyroidism Hyperlipidemia Hypertension GERD continue flomax, synthroid, protonix, restart levothyroxine Currently with coud catheter Pneumonia resolved Acute on chronic COPD exacerbation resolved Acute hypoxic respiratory failure resolved VTE: heparin sq Code: Full Dispo: consult social work for longterm vs home health Pending Home with home health or longterm facility
[2024-10-14 09:27] LABS: Magnesium 1.9 mg/dL (1.6-2.4); Potassium 4.1 mEq/L (3.5-5.1)
[2024-10-14 16:56] LABS: Hepatitis B Surface Ab - Quant 6.56 mIU/mL (<8.0)
--- NOTE | 2024-10-14 17:14 | P.PN ---
Subjective Date of Service: 10/14/24 Chief Complaint: Recent fall and weakness Physical Examination - Vital Signs Temperature: 98.1 F Blood Pressure: 93/55 Pulse: 78 Respirations: 17 Pulse Ox (%): 95 Assessment And Plan - Plan Physical Exam: Gen: Alert, NAD, Orientedx3 CV: Regular rate and rhythm, no edema Pulm: Nonlabored respirations on 4L NC , Basilar crackles with end expiratory wheezing Abdomen: Soft, nontender, nondistended MSK: left clavicle tenderness Neuro: Mild aphasia with left-sided weakness Problem List: Bibasilar pneumonia Acute on chronic COPD exacerbation Acute hypoxic respiratory failure secondary to the above Left clavicle fracture Hx of CVA ESRD of HD Polycystic Kidney disease Constipation BPH Hypothyroidism Hyperlipidemia Hypertension GERD Bibasilar pneumonia Acute on chronic COPD exacerbation Acute hypoxic respiratory failure secondary to the above CT head: no acute findings. Remove bilateral MCA territory infarcts MRI brain: No acute CVA. Gliosis is present in the watershed zone bilaterally, greater on the left compatible with remote infarcts. CT chest/abd/pelvis: Patchy airspace opacity in both lung bases suspicious for pneumonia. Small triangular lesion in the left apex posteriorly is indeterminate but could be malignant. [id number] kidney disease with liver cysts Dr. Barreto, pulm consulted weaned off oxygen IV steroids deescalated to oral prednisone 10/07 Completed Levaquin Left clavicle fracture Hx of CVA continue supportive care, pain control. Neuro consulted. No further input. Follow up in clinic continue statin, plavix, asa 81mg ESRD of HD Polycystic Kidney disease Dialysis today dialysis per nephro Constipation s/p mineral oil and glycolax yesterday O'clock suppository BPH Hypothyroidism Hyperlipidemia Hypertension GERD continue flomax, synthroid, protonix, restart levothyroxine Currently with coud catheter Pneumonia resolved Acute on chronic COPD exacerbation resolved Acute hypoxic respiratory failure resolved VTE: heparin sq Code: Full Physician Review: Patient Assessed, Agree with Above Assessment and Plan
--- NOTE | 2024-10-15 03:41 | PN ---
Date of Progress Note: 10/14/2024 Subjective: The patient is a 69-year-old man with history of end-stage renal disease, on hemodialysi s. He is undergoing home hemodialysis on Thursday, Thursday, Thursday, and he has history of CVA, hyper tension, polycystic kidney disease, peripheral arterial disease. The patient is admitted for status post fall with clavicular fracture. He was also found to have urinary retention and Ortega catheter i s placed. The patient was complaining of cough with yellowish sputum. Review of Systems: Denies chest pain, palpitation. Physical Examination: Lungs: Clear to auscultation bilaterally. Heart: S1, S2. Abdomen: Sof, benign. Extremities: Slight edema in both ankles. Impression And Plan: 1. End-stage renal disease. Continue dialysis. 2. Anemia of chronic disease. Continue ROB. 3. Hypertension, controlled. 4. Secondary hyperparathyroidism. Monitor phosphorus level. 5. Altered mental status, history of cerebrovascular accident, history of previous stroke. The patie nt is on Plavix. 6. Diabetes mellitus. Management per primary team. 7. Bronchitis. The patient is on antibiotics. 8. Deconditioning. Continue PT, OT. EB/MODL Voice ID: [id number] Report ID: [id number]
--- NOTE | 2024-10-15 13:40 | P.PN ---
Subjective Date of Service: 10/15/24 Chief Complaint: Recent fall and weakness Patient has no new complaints. He underwent hemodialysis yesterday. No issues overnight. Physical Examination - Vital Signs Temperature: 97.6 F Blood Pressure: 108/61 Pulse: 63 Respirations: 16 Pulse Ox (%): 96 Assessment And Plan - Plan Physical Exam: Gen: Alert, NAD, Orientedx3 CV: Regular rate and rhythm, no edema Pulm: Mild bibasilar crackles, adequate breath sounds bilaterally. Abdomen: Soft, nontender, nondistended MSK: left clavicle tenderness Neuro: Mild aphasia with left-sided weakness Problem List: Bibasilar pneumonia Acute on chronic COPD exacerbation Acute hypoxic respiratory failure secondary to the above Left clavicle fracture Hx of CVA ESRD of HD Polycystic Kidney disease Constipation BPH Hypothyroidism Hyperlipidemia Hypertension GERD Bibasilar pneumonia Acute on chronic COPD exacerbation Acute hypoxic respiratory failure secondary to the above CT head: no acute findings. Remove bilateral MCA territory infarcts MRI brain: No acute CVA. Gliosis is present in the watershed zone bilaterally, greater on the left compatible with remote infarcts. CT chest/abd/pelvis: Patchy airspace opacity in both lung bases suspicious for pneumonia. Small triangular lesion in the left apex posteriorly is indeterminate but could be malignant. [place] with liver cysts Dr. Barreto, pulm consulted weaned off oxygen IV steroids deescalated to oral prednisone 10/07 Completed Levaquin Left clavicle fracture Hx of CVA continue supportive care, pain control. Neuro consulted. No further input. Follow up in clinic continue statin, plavix, asa 81mg ESRD of HD Polycystic Kidney disease Dialysis today dialysis per nephro Constipation s/p mineral oil and glycolax yesterday O'clock suppository BPH Hypothyroidism Hyperlipidemia Hypertension GERD continue flomax, synthroid, protonix, restart levothyroxine Currently with coud catheter 10/15 Clinically stable. Patient completed Levaquin for pneumonia Stable COPD, off steroid. Tolerating room air with good oxygen saturation. Routine hemodialysis per nephrology. Outpatient hemodialysis CT still pending. Patient is slated for SNF at [facility]. VTE: heparin sq Code: Full
--- NOTE | 2024-10-16 03:37 | PN ---
Date of Progress Note: 10/15/2024 Subjective: The patient is a 69-year-old man with history of end-stage renal disease, on hemodialysi s Thursday, Thursday, Thursday, and he has history of CVA, hypertension, polycystic kidney disease, roxie pheral arterial disease. The patient is admitted for status post fall with clavicular fracture. The patient was found to have urinary retention. Ortega catheter in place. The patient was complaining of cough with yellowish sputum. Review of Systems: Denies chest pain or palpitations. Physical Examination: Lungs: Clear to auscultation bilaterally. Heart: S1, S2. Abdomen: Soft, benign. Extremities: Slight edema in both ankles. Impression And Plan: 1. End-stage renal disease. Continue ultrafiltration to treat fluid overload. Continue p.o. fluid r estriction. Low-sodium diet. 2. Anemia of chronic disease. Continue ROB. 3. Hypertension, controlled. 4. Secondary hyperparathyroidism. Monitor phosphorus level. Continue binders. 5. Altered mental status, history of cerebrovascular accident, history of previous stroke. The patie nt is on Plavix. 6. Diabetes mellitus. Management per primary team. 7. Bronchitis. Continue antibiotics. JOBY/LB Voice ID: [id number] Report ID: [id number]
--- NOTE | 2024-10-16 15:53 | P.PN ---
Subjective Date of Service: 10/16/24 Chief Complaint: Recent fall and weakness Patient denies any new complaint. No issues overnight. Patient has good urine output. Physical Examination - Vital Signs Temperature: 97.7 F Blood Pressure: 136/63 Pulse: 59 Respirations: 16 Pulse Ox (%): 97 Assessment And Plan - Plan Physical Exam: Gen: Alert, NAD, Orientedx3 CV: Regular rate and rhythm, no edema Pulm: Clear to auscultation, adequate breath sounds bilaterally. Abdomen: Soft, nontender, nondistended MSK: left clavicle tenderness Neuro: Mild aphasia with left-sided weakness Problem List: Bibasilar pneumonia Acute on chronic COPD exacerbation Acute hypoxic respiratory failure secondary to the above Left clavicle fracture Hx of CVA ESRD of HD Polycystic Kidney disease Constipation BPH Hypothyroidism Hyperlipidemia Hypertension GERD Bibasilar pneumonia Acute on chronic COPD exacerbation Acute hypoxic respiratory failure secondary to the above CT head: no acute findings. Remove bilateral MCA territory infarcts MRI brain: No acute CVA. Gliosis is present in the watershed zone bilaterally, greater on the left compatible with remote infarcts. CT chest/abd/pelvis: Patchy airspace opacity in both lung bases suspicious for pneumonia. Small triangular lesion in the left apex posteriorly is indeterminate but could be malignant. [place] disease with liver cysts Dr. Barreto, pulm consulted weaned off oxygen IV steroids deescalated to oral prednisone 10/07 Completed Levaquin Left clavicle fracture Hx of CVA continue supportive care, pain control. Neuro consulted. No further input. Follow up in clinic continue statin, plavix, asa 81mg ESRD of HD Polycystic Kidney disease Dialysis today dialysis per nephro Constipation s/p mineral oil and glycolax yesterday O'clock suppository BPH Hypothyroidism Hyperlipidemia Hypertension GERD continue flomax, synthroid, protonix, restart levothyroxine Currently with coud catheter 10/15 Clinically stable. Patient completed Levaquin for pneumonia Stable COPD, off steroid. Tolerating room air with good oxygen saturation. Routine hemodialysis per nephrology. Outpatient hemodialysis chair still pending. Patient is slated for SNF at [facility]. 10/16 Clinically stable. Awaiting outpatient hemodialysis seat for discharge. Patient is slated for SNF at [facility]. Continue PT Noted patient has left upper lobe pulmonary lesion will need outpatient follow- up to rule out malignancy. He will need PET scan as outpatient. Patient completed steroid for COPD exacerbation Continue Flomax for BPH. Patient currently has coud catheter in for urinary retention. Patient will need to follow-up with urology as outpatient. VTE: heparin sq Code: Full
[2024-10-16 17:55] LABS: Magnesium 1.8 mg/dL (1.6-2.4)
[2024-10-16 18:02] LABS: Albumin 2.8 g/dL (3.4-5.0); Anion Gap 14.3 mEq/L (5.0-15.0); BUN Blood Urea Nitrogen 56.0 mg/dL (7-18); Glucose Level 99.0 mg/dL (74-106); Potassium 4.3 mEq/L (3.5-5.1)
--- NOTE | 2024-10-17 02:07 | PN ---
Date of Progress Note: 10/16/2024 Subjective: Patient is a 69-year-old man with history of end-stage renal disease, on hemodialysis Mo , Thursday, Thursday. He has history of CVA, hypertension, polycystic kidney disease, peripheral arterial disease. He was admitted to the hospital for status post fall with clavicular fracture. Th e patient was found to have urinary retention. Ortega catheter was placed during this hospitalization . Review of Systems: Today, he denies complaints. Physical Examination: Lungs: Clear to auscultation bilaterally. Heart: S1, S2. Abdomen: Soft. Extremities: Slight edema in both ankles. Impression And Plan: 1. End-stage renal disease. Continue dialysis and ultrafiltration for mild fluid overload. The stephie ent has legs edema, although he denies shortness of breath. Lungs are clear to auscultation bilatera lly. Continue p.o. fluid restriction, low-sodium diet. 2. Anemia of chronic disease. Monitor hemoglobin level and continue ROB. 3. Hypertension. Continue blood pressure medication. 4. Secondary hyperparathyroidism. Monitor phosphorus level. Continue binders according to lab resul ts. 5. Diabetes mellitus management per primary team. 6. Urinary retention. Ortega catheter was placed during this admission. Patient will need to follow up with Urology. I requested Urology consultation. For urinary retention, patient is on Flomax. EB/MODL Voice ID: [id number] Report ID: [id number]
[2024-10-17 06:01] LABS: Albumin 2.7 g/dL (3.4-5.0); Anion Gap 17.2 mEq/L (5.0-15.0); BUN Blood Urea Nitrogen 58.0 mg/dL (7-18); Glucose Level 81.0 mg/dL (74-106); Potassium 4.2 mEq/L (3.5-5.1)
[2024-10-17] MEDS ORDERED: CINACALCET HCL 30 MG TAB PO SCH (09:00)
[2024-10-17 17:43] LABS: Sqamous Epithelial None Seen /HPF (None Seen); Urine Crystals Unidentified Many /HPF (None Seen); Urine Culture Reflex Order REFLEXED; Urine Microscopic Reflex YN ORDER UMIC; Urine Yeast (Budding) Few /HPF (None Seen)
--- NOTE | 2024-10-17 22:24 | PN ---
Date of Progress Note: 10/17/2024 Subjective: The patient is a 69-year-old man with history of end-stage renal disease, on hemodialysis Thursday, Thursday, Thursday. He has tunneled dialysis catheter. He has history of CVA, hypertension, polycystic kidney disease, peripheral arterial disease. He was admitted to the hospital because of status post fall with clavicular fracture. The patient was found to have urinary retention and Ortega catheter was placed during this hospitalization. Review of Systems: Denies chest pain, palpitations. Physical Examination: Lungs: Clear to auscultation bilaterally. Heart: S1, S2. Abdomen: Soft, benign. Extremities: Minimal edema in both ankles. Impression And Plan: 1. End-stage renal disease. Continue dialysis and ultrafiltration to treat mild fluid overload. The patient has legs edema, although he denies shortness of breath. Lungs are clear to auscultation bilaterally. The patient denies cough and denies chest pain. Continue p.o. fluid restriction and low-sodium diet. 2. Anemia of chronic kidney disease. Monitor hemoglobin level. Adjust ROB according to lab results. 3. Hypertension. Continue blood pressure medication. 4. Secondary hyperparathyroidism of renal origin. Monitor phosphorus level and adjust binders according to lab results. 5. Diabetes mellitus, management per Primary team. 6. Urinary retention. Ortega catheter is in place. The patient will need to follow up with Urology. I consulted Urology. 7. The patient will continue Flomax and Ortega catheter was placed for urinary retention and altered mental status. JOBY/LB Voice ID: [id number] Report ID: [id number] MTDD
[2024-10-18 00:22] VITALS: BMI 26.4
--- NOTE | 2024-10-18 00:24 | P.PN ---
Date of Service: 10/17/24 Subjective Physical Examination - Vital Signs Reviewed - Physical Exam General: Alert, Oriented x3 HEENT: Within normal limits; Respiratory: Basilar crackles with end expiratory wheezing Cardiovascular: Regular rate/rhythm, Normal S1 S2, No gallops, No rubs, No murmurs Gastrointestinal: Normal bowel sounds, Soft and benign, W/out hepatomegaly, No ascites, No tenderness, No masses, No rebound, No guarding Musculoskeletal: No clubbing, No swelling, No contractures, Tenderness (Left clavicle); recent fracture. Neurological: Mild aphasia with left-sided weakness Assessment and Plan - Assessment/Plan Patient admitted to inpatient with new onset COPD exacerbation, generalized body weakness, and current history of left clavicle fracture that patient sustained on Thursday when he fell. (1) Bibasilar pneumonia with acute COPD exacerbation and generalized weakness. -Arrange for home oxygen. Room air O2 sats 84% and in the 90s on 2 L. -Levaquin 500 mg p.o. daily x 3 more days. -Prednisone 20 mg p.o. daily. Continue with tapering dose -Consult physical therapy. (2) Left clavicle fracture. Inquired from patient family what patient PCP plans are with the fracture, states at this time patient was ordered just a sling. 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 - Continue with pain control; morphine 4 mg IV as needed every 6 hours. (3) History of CVA; continue with antiplatelet therapy and statin therapy; MRI without any acute findings. (4) ESRD; hemodialysis per nephrology (5) Abdominal pain; CT negative for any acute findings; most likely related to constipation. Laxative given Discharge Plan: Home Plan to discharge in: Greater than 2 days - Advance Directives Does patient have a Living Will: No Does patient have a Durable POA for Healthcare: No - Code Status/Comfort Care Code Status Assessed: Yes Code Status: Full Code Critical Care: No Time Spent Managing Pts Care (In Minutes): 35
[2024-10-18 06:16] LABS: ALT/SGPT 16 U/L (16-61); Albumin 2.7 g/dL (3.4-5.0); Albumin/Globulin Ratio 0.8 (1.1-1.8); Alkaline Phosphatase 49 U/L (45-117); Anion Gap 14.0 mEq/L (5.0-15.0); BUN Blood Urea Nitrogen 37 mg/dL (7-18); Globulin 3.3 g/dL (2.3-3.5); Glucose Level 97 mg/dL (74-106); HDL Cholesterol 34 mg/dL (40-60); LDL Cholesterol, Calculated 32 mg/dL (<130); LDL Cholesterol,Calc NonReport 32; Lipase 27 U/L (13-75); Potassium 4.0 mEq/L (3.5-5.1)
[2024-10-18 06:20] LABS: AST/SGOT < 10 U/L (15-37)
[2024-10-18 06:50] LABS: Absolute Lymphocytes (CBC) 1.5 K/uL (0.7-4.9); Hematocrit 34.1 % (39.6-49.0); Hemoglobin 11.0 g/dL (13.6-17.9); MCH 30.1 pg (27.0-35.0); MCHC 32.2 g/dL (32.0-36.0); MCV 93.6 fL (80-100); MPV 7.8 fL (7.6-11.3); Nucleated RBC Absolute Count 0.0 (0-0); Nucleated Red Blood Cells % 0.0 % (0-0); RBC Red Blood Cell Count 3.64 M/uL (4.33-5.43); White Blood Count 6.70 thou/uL (4.3-10.9)
[2024-10-18] MEDS: SEVELAMER CARBONATE 800 MG TABLET PO SCH (08:19)
[2024-10-18] MEDS ORDERED: ALBUTEROL 2.5 MG/3 ML NEB SOL NEB PRN ×2 (10:40→11:51)
[2024-10-18] MEDS ORDERED: IPRATROPIUM BROM 0.5MG/2.5ML NEB PRN (10:40)
[2024-10-18] MEDS: CEFTRIAXONE 1,000 MG in NA CHLORIDE 0.9% 50 ML IVPB ONE (12:22)
[2024-10-18 12:35] VITALS: O2SAT 93
[2024-10-18] MEDS: NA CHLORIDE 0.9% 250 ML ONE (15:01)
[2024-10-18 16:13] VITALS: BP 124/62; TEMP 97.7
--- NOTE | 2024-10-18 17:39 | P.CNS ---
Date of Consult: 10/18/24 Reason for Consult: Acute urinary retention Requesting Physician: Pamela Blanton Chief Complaint: Recent fall and weakness History of Present Illness: 69-year-old gentleman with DM2, COPD, ESRD on dialysis via peritoneal dialysis catheter, hypertension, history of CVA from 05/2024, aortic aneurysm with stent, PVD, hypercholesterolemia and gout who suffered a fall apparently on Thursday prior to his admission 10/03/2024. He sustained a left clavicular fracture and had a sling on. He subsequently was brought to the [facility] emergency department with pulmonary congestion, generalized weakness and altered mental status. According to the at bedside at the time of admission, he had been coughing with a lot of congestion and dyspnea. He then became confused which prompted the emergency department visit after 5 PM. Shortly after his admission on 10/09/2024, a urethral Ortega catheter was placed for presumptive urinary retention. He has been medically optimized since that time and is now considered medically optimized for discharge to a rehab facility. Urology consultation was requested because of the indwelling urethral Ortega catheter and apparently some gross hematuria. The patient described having an issue of difficulty urinating 3 to 4 months ago associated with some constipation, but subsequent conversation with his did not verify that occurrence. The patient was significantly confused and it was difficult to understand his speech also. So despite indicating no residual deficits on admission from his prior CVA, significant deficits were indeed noted. Past medical history: As above, mild aphasia with left-sided weakness Past surgical history: Aortic stent and peritoneal dialysis catheter placement Social history: Former smoker No known drug allergies Examination: Patient is alert and awake perhaps oriented to person only in no acute distress No dyspnea or sign of respiratory distress Resting in the hospital bed comfortably Abdomen soft and nontender Urethral Ortega catheter in place draining clear yellow urine Labs on admission 10/03/2024 WBC 10.4, hemoglobin 10.8, platelets 219, creatinine 4.40, LFTs low, alk phos 68, urine culture no growth 10/18/2024 creatinine 5.74 with EGFR 10 10/06/2024 CT chest abdomen and pelvis with contrast findings: 24 x 19 mm triangular lesion in the left upper lobe posteriorly abutting the pleura. Linear atelectasis present posterior right upper lobe. Moderate airspace infiltrate pattern present in both lower lobes, greater on the left. No adrenal lesions. Bilateral polycystic kidneys. Impression: Patchy airspace opacity in both lung bases posteriorly suspicious for infiltrate/pneumonia. Small triangular lesion of the left apex posteriorly indeterminate but could be malignant. Polycystic kidney disease with liver cysts also noted - I reviewed the images of the CT scan noting the truly polycystic kidneys present bilaterally. Numerous cysts with calcifications present. Since the urethral Ortega catheter has been placed at least since 10/09/2024 and it has been 9 days, an active voiding trial was performed as below: I cleansed the hub of the urethral Ortega catheter with alcohol after it from the drainage tubing. I then utilized the 60 cc catheter tip syringe as a final to retrograde instill approximately 275 cc normal saline into his bladder, until he felt a strong sensation of urgency to void. I then remove the catheter by deflating the balloon, and gave the patient a urinal. He was probably able to void into the urinal to completion with a voided volume of 325 cc of clear fluid. As a result, the catheter was left out, and I instructed that he be given 1 g ceftriaxone for antimicrobial prophylaxis since he was not currently on any active antimicrobial therapy. Assessment and recommendation: 69-year-old gentleman with DM2, COPD, ESRD on dialysis via peritoneal dialysis catheter, hypertension, aortic aneurysm with stent, PVD, hypercholesterolemia, gout, history of CVA from 05/2024 with residual aphasia and left-sided weakness, now with acute urinary retention, likely consequence of hypoxic cerebral event contributing to altered mental status and a fall, with gross hematuria in the setting of a history of smoking and known bilateral polycystic kidney disease. -Active voiding trial provided for patient today. See procedure above. Patient passed successfully. -Ceftriaxone 1 g IV antimicrobial prophylaxis provided x 1 dose -Continue Flomax 0.4 mg daily at bedtime -Follow-up with me in the urology clinic within the next 3 to 4 weeks for cystoscopy to evaluate the source of the gross hematuria and urinary retention beyond the cerebral event. - Obtain a PSA prior to follow-up if not done by his PCP. 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 Allergies No Known Allergies Allergy (Verified 03/16/24 05:59) Home medications list reviewed: Yes Home Medications: Aspirin [Aspirin EC 81 MG] 81 mg PO DAILY 06/29/20 Magnesium Oxide 400 mg PO DAILY 06/29/20 Allopurinol 100 mg PO BEDTIME 10/14/22 Pantoprazole [Protonix Tab*] 20 mg PO BID 10/14/22 Atorvastatin Calcium 1 tab PO BEDTIME 10/04/24 Cetirizine HCl [Zyrtec] 10 mg PO BEDTIME PRN 10/04/24 Escitalopram Oxalate 1 tab PO DAILY 10/04/24 Levothyroxine Sodium [Unithroid] 50 mcg PO DAILY 10/04/24 Mirtazapine 15 mg PO BEDTIME 10/04/24 Tamsulosin [Flomax*] 0.4 mg PO BEDTIME 10/04/24 Hydrocodone 5/APAP 325 [[place] 5/325] 1 tab PO Q8H PRN 7 Days #21 tab 10/08/24 Amox/K Clav [Augmentin 600 MG/5 ML Susp] 5 ml PO BID #100 ml 10/18/24 Arformoterol Tartrate [Brovana] 15 mcg NEB BIDRESP #60 vial.neb 10/18/24 Benzonatate [Tessalon Perle*] 100 mg PO TID PRN #30 cap 10/18/24 Guaifen W/Codeine Syrup [ROBITUSSIN A-C Syrup*] 10 ml PO Q12HP PRN #100 ml 10/18/24 Ipratropium Neb [Atrovent*] 0.5 mg NEB Q6HP PRN #60 amp 10/18/24 predniSONE [Deltasone] 20 mg PO BID #20 tab 10/18/24 - Past Medical/Surgical History Diabetic: Yes -: Hypertension -: Hyperlipidemia -: Aortic aneurysm stent -: Polycystic kidney disease -: Chronic kidney disease -: GERD -: Diabetes mellitus type 2 -: COPD -: AAA repair -: Peritoneal dialysis cath Psychosocial/ Personal History: Patient is , has 2 children and is now retired. - Family History Mother Medical History: Lung disease dad Medical History: Diabetes, Kidney disease - Social History Smoking Status: Unknown if ever smoked Alcohol use: No CD- Drugs: No Caffeine use: Yes Place of Residence: Home Physical Examination Temp Pulse Resp BP Pulse Ox 97.7 F 69 16 124/62 95 10/18/24 16:00 10/18/24 16:00 10/18/24 16:00 10/18/24 16:00 10/18/24 16:00 - Problems (1) Gross hematuria Current Visit: Yes Status: Acute (2) Acute urinary retention Current Visit: Yes Status: Acute Conclusions/Impression: see A&P in HPI Critical Care: No Time Spent Managing Pts care (In Minutes): 35
--- NOTE | 2024-10-19 03:04 | PN ---
Date of Progress Note: 10/18/2024 Chief Complaint: End stage renal disease, on hemodialysis. Subjective: The patient is a 69-year-old male with history of end-stage renal disease, on hemodialys is via tunneled dialysis catheter. He has hypertension, polycystic kidney disease. He had Ortega cat heter placed during this admission for urinary retention. Review of Systems: Denies complaints. Physical Examination: Lungs: Clear to auscultation bilaterally. Heart: S1, S2. Abdomen: Soft. Extremities: Minimal edema in both ankles. Impression And Plan: 1. End-stage renal disease. Continue dialysis and ultrafiltration to treat mild fluid overload. The patient has lower extremity edema. He denies shortness of breath. Lungs are clear to auscultation bilaterally. He denies cough, denies chest pain. Continue p.o. fluid restriction and low-sodium t. Advance ultrafiltration with dialysis. 2. Anemia of chronic kidney disease. Monitor hemoglobin level. Adjust ROB according to lab results. 3. Hypertension. Continue to monitor blood pressure log. 4. Secondary binders. 5. Diabetes mellitus, management per Primary team. 6. Urinary retention. Ortega catheter in place. The patient will follow up with Urology. Urology w as consulted. 7. The patient will continue Flomax and Ortega catheter was placed here on this admission for urinary retention and altered mental status. EB/MODL Voice ID: [id number] Report ID: [id number]
== END 2024-10-18 18:19 | DRG 871 ==
LOC: ER 20:49 → 4TH 23:51
PROVIDERS: ADMIT Hospitalist; ATTEND Hospitalist
PROC: 5A1D70Z Performance of Urinary Filtration, Intermittent, Less than 6 Hours Per Day (ICD-10-PCS; principal; 2024-10-04)
PROC: 0T9B70Z Drainage of Bladder with Drainage Device, Via Natural or Artificial Opening (ICD-10-PCS; 2024-10-08)
DX: A41.9 Sepsis, unspecified organism (principal); G93.41 Metabolic encephalopathy; J18.9 Pneumonia, unspecified organism; N18.6 End stage renal disease; J96.01 Acute respiratory failure with hypoxia; S22.32XA Fracture of one rib, left side, initial encounter for closed fracture; J44.0 Chronic obstructive pulmonary disease with (acute) lower respiratory infection; I12.0 Hypertensive chronic kidney disease with stage 5 chronic kidney disease or end stage renal disease; J44.1 Chronic obstructive pulmonary disease with (acute) exacerbation; N25.81 Secondary hyperparathyroidism of renal origin; N39.0 Urinary tract infection, site not specified; Q61.3 Polycystic kidney, unspecified; I69.354 Hemiplegia and hemiparesis following cerebral infarction affecting left non-dominant side; D63.1 Anemia in chronic kidney disease; J40 Bronchitis, not specified as acute or chronic; E11.22 Type 2 diabetes mellitus with diabetic chronic kidney disease; E11.40 Type 2 diabetes mellitus with diabetic neuropathy, unspecified; E11.51 Type 2 diabetes mellitus with diabetic peripheral angiopathy without gangrene; E03.9 Hypothyroidism, unspecified; E78.00 Pure hypercholesterolemia, unspecified; K21.9 Gastro-esophageal reflux disease without esophagitis; I69.391 Dysphagia following cerebral infarction; E87.70 Fluid overload, unspecified; K59.00 Constipation, unspecified; N40.1 Benign prostatic hyperplasia with lower urinary tract symptoms; I69.320 Aphasia following cerebral infarction; R13.10 Dysphagia, unspecified; R33.8 Other retention of urine; R31.0 Gross hematuria; S42.002A Fracture of unspecified part of left clavicle, initial encounter for closed fracture; Z99.2 Dependence on renal dialysis; Z87.891 Personal history of nicotine dependence; Z91.158 Patient's noncompliance with renal dialysis for other reason; Z79.82 Long term (current) use of aspirin; Z79.890 Hormone replacement therapy; Z79.899 Other long term (current) drug therapy; W18.30XA Fall on same level, unspecified, initial encounter; Y93.9 Activity, unspecified; Y92.9 Unspecified place or not applicable; Y99.9 Unspecified external cause status
CPT/HCPCS: 36415; 70450; 70551; 71045; 71260; 74177; 80048; 80053; 80061; 80069; 80076; 81001; 82947; 83605; 83690; 83735; 83880; 84100; 84132; 84145; 84484; 85025; 85610; 86704; 86705; 86706; 87070; 87086; 87088; 87205; 87340; 90935; 93005; 94010; 94640; 94760; 96365; 96366; 96375; 97116; 97161; 97530; 99285; J0696; J1644; J1815; J2919; J3010; J3475; J7030; J7050; J7512; J7605; J7613; J7614; J7644; Q9967